=== PATIENT | male | born 1955 | race Caucasian/White ===

== ENCOUNTER 2023-12-11 10:38 | Emergency (ER) | payer MEDICARE, OTHER, SELFPAY ==
[2023-12-11 10:38] VITALS: BP 133/78; PULSE 105; RESP 14; TEMP 36.1; O2SAT 92; BMI 23.0
[2023-12-11 11:24] LABS: Absolute Lymphocyte Count 1.39 X10^3/uL (0.83-4.51); Basophil# 0.04 X10^3/uL; Basophil% 0.5 % (0-1); Eosinophil# 0.22 X10^3/uL; Eosinophils% 2.7 % (0-5); Hematocrit 32.3 % (40-54); Hemoglobin 9.6 g/dL (13.0-16.5); Lymphocyte # 1.39 X10^3/ul (0.83-4.51); Lymphocyte % 16.9 % (19-41); Mean Corp Hgb Conc 29.7 g/dL (32-36); Mean Corpuscular Hgb 24.2 pg (27.0-32.0); Mean Corpuscular Volume 81.6 fL (80-94); Mean Platelet Vol. 8.4 fl (6.2-12.0); Monocyte# 0.58 X10^3/uL; Monocyte% 7.1 % (0-10); NRBC Flagged by Analyzer 0 % (0-5); Neutrophil # 5.95 X10^3/uL (2.7-7.7); Neutrophil % 72.4 % (47-70); POSITIVE MORPHOLOGY YES; Platelet Count 205 K/mm3 (150-450); RBC Distribution Width CV 20.6 % (11.6-14.6); RBC Distribution Width SD 61.1 fl (35.1-43.9); Red Blood Count 3.96 M/mm3 (4.6-6.2); White Blood Count 8.2 K/mm3 (4.4-11.0)
[2023-12-11 11:25] LABS: Differential Indicated SCAN CRITERIA MET
[2023-12-11 11:36] LABS: Bacteria 0 SEEN /hpf (None Seen); Mucous, Urine 0 SEEN /hpf (<or=2+); Red Blood Cells-Urine 0 SEEN /hpf (0-5); Squamous Epithelial Cells - UA 0 SEEN /hpf (0-5); White Blood Cells 0 SEEN /hpf (0-5)
[2023-12-11 11:39] LABS: Color, Urine Yellow (Yellow); Glucose, Dipstick Normal (Normal); Ketone-Dipstick Negative (Negative); Leukocyte Esterase-Dipstick Negative /ul (Negative); Nitrite-Dipstick Negative (Negative); Occult Blood-Urine Negative /ul (Negative); Protein-Dipstick 15 mg/dl (Negative); Urine Bilirubin Dipstick Negative (Negative); Urine Clarity Sl. Cloudy (Clear); Urine Urobilinogen Normal (Normal)
[2023-12-11 11:46] LABS: ALB/GLOB Ratio 1.1 RATIO (0.9-2.4); AST(SGOT) 23 U/L (15-37); Alanine Aminotransfer ALT/SGPT 36 U/L (16-61); Albumin, Serum 3.6 g/dL (3.2-5.0); Alkaline Phosphatase 89 U/L (45-117); Anion Gap 5 (5-15); BUN 22 mg/dL (7-18); BUN/Creat Ratio 23.1 RATIO (10-20); Calcium,Total 9.4 mg/dL (8.5-10.1); Chloride 107 mmol/L (98-107); Creatinine, Serum 0.95 mg/dL (0.70-1.30); EST Glomerular Filtration Rate 83 mL/min (>60); Est Glom Filt Rate - Afr Amer 100 mL/min (>60); Globulin 3.4 g/dL (2.2-4.2); Glucose 104 mg/dL (74-106); Lipase 25 U/L (13-75); Potassium 3.8 mmol/L (3.5-5.1); Sodium Level 139 mmol/L (136-145)
[2023-12-11 12:20] LABS: Differential Comment SCANNED; Platelet Estimate ADEQUATE (ADEQ)
[2023-12-11 12:21] LABS: Anisocytosis 2+; Ovalocyte 2+; Schistocytes 1+; Tear Drop Cell 1+
[2023-12-11 12:38] VITALS: BP 131/73; PULSE 78; RESP 16; O2SAT 98
[2023-12-11 14:00] VITALS: BP 129/74; PULSE 73; RESP 14; O2SAT 99
--- NOTE | 2023-12-11 14:03 | EDS_ITS ---
HPI History of Present Illness Chief Complaint: Flank Pain Narrative Narrative: Patient is a 68-year-old male with a past medical history of prostate cancer who presented to the emergency department with chief complaint of abnormal CT abdomen pelvis. Patient states that normally after he gets that shot for his prostate cancer he will have pain however he states that this has been going on for 3 weeks and usually he is better by now which things have not improved prompting him to have a CT in outpatient setting by his specialist. He states that today he was called by them and notified to come to the Emergency Department as there was concern for appendicitis. Patient states that his pain is mainly in the left side of his back. He states that he takes ibuprofen does help his pain. PFSH PFSH Home Medications ?Medication ?Instructions ?Recorded ?Last Taken ?Type abiraterone 250 mg tablet 1,000 mg PO DAILY prostate cancer 12/11/23 Unknown History atorvastatin 20 mg tablet 20 mg PO DAILY cholesterol 12/11/23 Unknown History prednisone 5 mg tablet 5 mg PO BID prostate 12/11/23 Unknown History tamsulosin 0.4 mg capsule 0.4 mg PO DAILY prostate 12/11/23 Unknown History Allergy/AdvReac Type Severity Reaction Status Date / Time No Known Allergies Allergy Verified 12/11/23 10:39 Social History Smoking Status: Never smoker ROS ROS ED ROS Narrative Constitutional: Denies any fevers, chills, headaches, lightness, dizziness Eyes: Denies changes double vision blurry vision Cardiovascular: Denies chest pain or palpitations Respiratory: Denies coughing wheezing shortness of breath Abdomen: Denies any abdominal pain nausea vomiting diarrhea : Denies any urinary symptoms Neurological: Denies any numbness, weakness, tingling Musculoskeletal: Complains of left-sided back pain as noted above Skin: Denies rashes or lesions EXAM Physical Exam Narrative Exam Narrative: General: Patient was lying in bed rest comfortably did not appear to be in acute distress Head: Atraumatic normocephalic Eyes: PERRL bilaterally, EOMI bilateral, no conjunctival injection noted Neck: Soft, supple, trach midline Cardiovascular: Regular rate and rhythm no murmurs gallops rubs noted Respiratory: Clear to auscultation bilaterally no rales rhonchi wheeze noted Abdomen: Soft, nondistended, nontender to palpation Musculoskeletal: No CVA tenderness noted on exam, no midline tenderness palpation in the thoracolumbar spine Extremities: +5/5 strength noted in the bilateral upper and lower extremities, no pedal edema noted exam Neurological: Patient was following commands knew that he was at [facility] year is 2023 Skin: Warm, dry, intact Const Vital Signs: 12/11/23 10:38 12/11/23 12:38 Temperature 97 F L Temperature Source Temporal Pulse Rate 105 H 78 Respiratory Rate 14 16 Blood Pressure 133/78 H 131/73 H Blood Pressure Mean 96 92 Pulse Ox 92 98 Oxygen Delivery Method Room Air Room Air MDM MDM MDM Narrative Medical decision making narrative: Patient is a 68-year-old male who presented to the Emergency Department with a chief complaint of abnormal CT abdomen pelvis with concern that was read as acute appendicitis. Patient will have a workup performed here on the differential diagnose includes but not limited to appendicitis, urolithiasis, UTI. Once workup is obtained reviewed he will be reevaluated. Patient had a CT lumbar spine with IV contrast yesterday that was read as is reasonable probability mild acute uncomplicated appendicitis. Position right lower quadrant. Clinical correlation was indicated. As approximately symmetrical bilateral perineal stranding unlikely acute congestive/inflammatory. Sclerotic bone metastases most of all of which lacking corresponding increase in significant activity on the 2021 most recent nuclear bone scan no lytic or otherwise destructive lesions noted. Mildly atelectatic lung bases subcentimeter probable hepatic cyst. Lumbar spine showed no destructive osseous lesions. Sclerotic bone metastases. Patient's CBC was largely unremarkable no leukocytosis white blood count normal at 8.2, hemoglobin was 9.6, platelet count was 205. Patient sodium normal at 139, potassium normal at 3.8, creatinine normal at 0.95. Patient's AST and ALT were 23 and 36 respectively. Patient lipase normal at 25. Patient's urinalysis showed no blood no evidence of infection. I called and discussed the case with on-call general surgeon Dr. robledo who states that he can follow-up with him in the outpatient setting. Patient was also encouraged to follow-up with his specialist in the outpatient setting and ordered the CT abdomen pelvis. He is encouraged to take Tylenol and ibuprofen [id number] for pain control. He is encouraged return for worsening symptoms or other concerns. He is agreeable with this plan as well as significant other at bedside all question concerns answered he is discharged home in stable condition. Lab Data Labs: Laboratory Results - last 24 hr 12/11/23 12/11/23 11:18 11:30 WBC 8.2 RBC 3.96 L Hgb 9.6 L Hct 32.3 L MCV 81.6 MCH 24.2 L MCHC 29.7 L RDW Std Deviation 61.1 H RDW Coeff of Lydia 20.6 H Plt Count 205 MPV 8.4 Immature Gran % (Auto) 0.400 Neut % (Auto) 72.4 H Lymph % (Auto) 16.9 L Braxton % (Auto) 7.1 Eos % (Auto) 2.7 Baso % (Auto) 0.5 Absolute Neuts (auto) 6.0 Absolute Lymphs (auto) 1.39 Nucleated RBC % 0 Differential Comment SCANNED Platelet Estimate ADEQUATE Anisocytosis 2+ Tear Drop Cells 1+ Ovalocytes 2+ Schistocytes 1+ Sodium 139 Potassium 3.8 Chloride 107 Carbon Dioxide 27.0 Anion Gap 5 BUN 22 H Creatinine 0.95 Estim Creat Clear Calc 70.00 Est GFR (MDRD) Af Amer 100 Est GFR (MDRD) Non-Af 83 BUN/Creatinine Ratio 23.1 H Glucose 104 Calcium 9.4 Total Bilirubin 0.50 AST 23 ALT 36 Alkaline Phosphatase 89 Total Protein 7.0 Albumin 3.6 Globulin 3.4 Albumin/Globulin Ratio 1.1 Lipase 25 Urine Color Yellow Urine Clarity Sl. Cloudy Urine pH 7.0 Ur Specific Watson 1.010 Urine Protein 15 H Urine Glucose (UA) Normal Urine Ketones Negative Urine Occult Blood Negative Urine Nitrite Negative Urine Bilirubin Negative Urine Urobilinogen Normal Ur Leukocyte Esterase Negative Urine RBC 0 SEEN Urine WBC 0 SEEN Ur Squamous Epith Cells 0 SEEN Urine Bacteria 0 SEEN Urine Mucus 0 SEEN Discharge Plan Triage Chief Complaint: Flank Pain ED Provider: Rubén Liu Dx/Rx/DC Orders Clinical Impression: Abnormal computed tomography of abdomen and pelvis, Chronic left-sided back pain Prescriptions: No Action atorvastatin 20 mg tablet 20 mg PO DAILY prednisone 5 mg tablet 5 mg PO BID tamsulosin 0.4 mg capsule 0.4 mg PO DAILY abiraterone 250 mg tablet 1,000 mg PO DAILY Primary Care Provider: López Ocampo Referrals: López Ocampo MD [Primary Care Provider] - Moreno Robledo MD [Med Staff - Active Staff] - Activity Restrictions/Additional Instructions: Follow-up with your doctors in the outpatient setting. Follow-up with the general surgeon that you referred to return with worsening symptoms or other concerns. Print Language: Indonesian Disposition Disposition: Home, Self Care
[2023-12-11 14:32] VITALS: BP 117/73; PULSE 78; RESP 16; TEMP 36.6; O2SAT 99
== END 2023-12-11 14:33 | disposition home or self-care (01) ==
PROVIDERS: Emergency Provider Emergency Medicine; PCP Family Medicine; Visit Provider Emergency Medicine
DX: R93.5 Abnormal findings on diagnostic imaging of other abdominal regions, including retroperitoneum (principal); M54.9 Dorsalgia, unspecified; Z79.899 Other long term (current) drug therapy
CPT/HCPCS: 80053; 81001; 83690; 85025; 99283; A4216

== ENCOUNTER 2024-02-05 09:37 | Observation (INO) | payer MEDICARE, OTHER, SELFPAY ==
[2024-02-05] VITALS (15 sets, daily range): BP systolic 93–116; BP diastolic 44–75; PULSE 83–105; RESP 16–37; TEMP 36.6–37.3; O2SAT 59–98; BMI 22.6
--- NOTE | 2024-02-05 | APP_PTH ---
PATIENT: SARAH CORDERO II LOC: MS3 U#:[id number] AGE/SX: 68/M ROOM: DE316 RE02/05/[address]: Dr. Rohit Crawford MD : [id number] BED: 1 DIS: 02/06/2024 SPEC #: [id number] RECD: 02/05/24 17:56 STATUS: SONIYA GALLOWAY #: [id number] ALFONSO: 02/05/24 00:[address]: Rohit Crawford DEPT: SURGICAL PATHOLOGY RECD BY: Homer Flores ENTERED: 02/06/24 09:15 SP TYPE: APPENDIX OTHR DR: Dr. López Ocampo MD Tissues: Appendix, NOS Procedures: Surgery Specimen Level III HEADER OPERATION: Laparoscopic appendectomy PRE-OP DIAGNOSIS: Acute appendicitis TISSUE SUBMITTED: Appendix MICROSCOPIC DIAGNOSIS Appendix, appendectomy: Acute appendicitis and periappendicitis. See michelle. 02/09/2024 COMMENT Please also make reference additional specimen, [id number], peritoneal fluid for cytology with diagnosis of negative for malignant cells and acute inflammation. Clinical correlation and appropriate follow up are necessary. MICROSCOPIC DESCRIPTION Slides are reviewed. GROSS DESCRIPTION Received in fixative is one container labeled with the patient's name and designated appendix. The specimen consists of an appendix measuring 4.5 cm in length and up to 1.1 cm in diameter. The attached periappendiceal adipose tissue measures up to 1.0 cm in width. The serosa is congested. No obvious perforation is identified. The lumen does not contain any fecal material. No fecalith is identified. Mechanical Engineering Director sections are submitted in one cassette. SJ. 02/06/2024 Rest of the specimen is submitted in two cassettes. Cassette 2 contains the tip and most proximal portion. / SJ: 02/09/2024 TC:2 CPT: 33379
--- NOTE | 2024-02-05 10:53 | EDS_ITS ---
HPI HPI - GI History of Present Illness Chief Complaint: Abd Pain Informant: patient and spouse/S.O. Narrative Narrative: Here with spouse evaluation worsening abdominal pain today. This morning mild pain right side however was drove home, had a bowel movement suddenly got worse and severe right lower. Nausea without vomiting. No urinary symptoms. No abdominal surgeries. No allergies. No medications taken. History of prostate cancer diagnosed 3 years ago currently on medications followed by Dr. Villarreal. Urologist ([facility]). Prior similar symptoms: No PFSH PFSH Home Medications ?Medication ?Instructions ?Recorded ?Last Taken ?Type abiraterone 250 mg tablet 1,000 mg PO DAILY prostate cancer 12/11/23 Unknown History atorvastatin 20 mg tablet 20 mg PO DAILY cholesterol 12/11/23 Unknown History prednisone 5 mg tablet 5 mg PO BID prostate 12/11/23 Unknown History tamsulosin 0.4 mg capsule 0.4 mg PO DAILY prostate 12/11/23 Unknown History cimetidine 200 mg tablet (Tagamet 200 mg PO BID 02/05/24 Unknown History HB) denosumab 120 mg/1.7 mL (70 mg/mL) 120 mg subcut .monthly 02/05/24 Unknown History subcutaneous solution (Xgeva) leuprolide acetate (6 month) 45 mg mg subcut 02/05/24 Unknown History (6 month) subcutaneous syringe (Eligard) Allergy/AdvReac Type Severity Reaction Status Date / Time No Known Allergies Allergy Verified 02/05/24 09:38 Social History Smoking Status: Never smoker ROS ROS ED Constitutional Constitutional ED: Denies chills, fever(s) or sweats Eyes Eyes: Denies change in vision ENT ENT ED: Denies dysphagia or sore throat Cardiovascular Cardiovascular: Denies chest pain, leg edema, palpitations or racing heartbeat Respiratory/Chest Respiratory/Chest: Denies cough, dyspnea or dyspnea on exertion Gastrointestinal Gastrointestinal: Reports abdominal pain and nausea; Denies diarrhea or vomiting Genitourinary Genitourinary ED: Denies dysuria, hematuria or urinary frequency Musculoskeletal Musculoskeletal: Denies back pain, extremity pain or neck pain Integumentary Denies rash or wounds Neurologic Neurologic: Denies headache(s), paresthesias or weakness EXAM Physical Exam Const Vital Signs: 02/05/24 09:38 02/05/24 11:38 02/05/24 13:00 Temperature 98 F Temperature Source Oral Pulse Rate 86 99 90 Respiratory Rate 37 H 20 H 16 Blood Pressure 103/50 L 116/54 L 104/51 L Blood Pressure Mean 67 74 68 Blood Pressure Source Blood Pressure Position Blood Pressure Location Pulse Ox 97 98 Oxygen Delivery Method Room Air 02/05/24 13:33 02/05/24 13:34 Temperature 98 F 98 F Temperature Source Oral Pulse Rate 90 97 Respiratory Rate 16 16 Blood Pressure 104/51 L 104/51 L Blood Pressure Mean 68 68 Blood Pressure Source Monitor Blood Pressure Position Supine Blood Pressure Location Left Arm Pulse Ox 98 96 Oxygen Delivery Method Room Air Positive well nourished and well developed Constitutional Narrative: Uncomfortable, nontoxic General Appearance ED: well developed HEENT Reports moist mucous membranes normocephalic and atraumatic Eyes EOMs intact bilaterally and conjunctivae normal General Eye ED: Yes normal appearance of both eyes Neck no lymphadenopathy and supple General: Negative for tenderness Chest Wall Chest: Negative for tenderness Resp normal respiratory effort and normal air movement Effort and Inspection: symmetric chest movement; Negative for respiratory distress Cardio regular rate, regular rhythm and no murmurs Peripheral Pulses: pulses 2+ throughout GI normal to inspection, nondistended, normoactive bowel sounds GI Narrative: Tenderness right lower quadrant, negative Renee's. Negative Rovsing's. Palpation: Negative for rebound tenderness present Back/Spine no CVA tenderness and no thoracic nor lumbar tenderness Extremity normal to inspection General Extremety ED: Negative for edema or tenderness General Extremity: Negative for edema Neuro oriented x3 and no sensory deficits noted Sensorium / Orientation: awake and alert Skin no rashes or lesions noted and no wounds MDM MDM MDM Narrative Medical decision making narrative: Interventions / MDM: Differential diagnosis: Acute appendicitis, right lower quadrant abdominal pain Diagnosis considered but do not suspect: Kidney stone however CT negative My EKG interpretation: EKG: Sinus rhythm 96, no ST T changes. T wave version V1 V2. QTc 462. Imaging independently reviewed and interpreted by myself: CT abdomen pel without contrast: Acute appendicitis, no perforation, no kidney stones. External documents reviewed: N/A Test considered but not ordered:N/A ED course: Patient sudden worsening pain right lower quadrant nausea. Uncomfortable unable he still. Appendix in the region however clinical appe arance more concerning for kidney stones. Renal stone protocol initiated. IV established fluids Zofran and morphine. 1155: White count 11.7 creatinine 0.98. Reevaluation pain continued increasing nausea. Will redosed morphine and Zofran. My review of CT did not appreciate any kidney stones. There are some concerns for inflammatory changes around the cecum. 1210: CT scan concerns for acute appendicitis. No perforation. I did speak with on-call surgeon Dr. Crawford, reviewing his records earlier December he was sent in here for abnormal CT of lumbar spine with possible appendicitis. D iscussed this with the patient is follow-up for his back pain with his cancer history he had no abdominal pain at that time. He did not follow-up with the surgeon. CT imaging was done at the specialty center. No CT records in [employer] and unable to pull up records in [facility]. He will be evaluated by surgery. 1310: Patient seen by surgery, antibiotics started. Preop EKG. chest x-ray and labs ordered. Will plan to go to the operating room from the ED. EKG sinus rhythm. Of note patient taken to operating apartment before chest x- ray performed in the ED. Re-evaluation: stable Disposition discussed with patient/family/significant other: Patient and significant other Case discussed with consulting clinician: General Surgery This note was generated with [employer] dictation software. It may contain incorrect words, spelling, and punctuation that were not noted in checking the note before signing. Lab Data Attestation: I reviewed the patient's lab results. Labs: Laboratory Results - last 24 hr 02/05/24 02/05/24 09:50 13:25 WBC 11.7 H RBC 4.23 L Hgb 10.3 L Hct 34.1 L MCV 80.6 MCH 24.3 L MCHC 30.2 L RDW Std Deviation 59.8 H RDW Coeff of Lydia 20.5 H Plt Count 199 MPV 8.8 Immature Gran % (Auto) 0.400 Neut % (Auto) 62.8 Lymph % (Auto) 31.4 Ellsworth % (Auto) 4.1 Eos % (Auto) 1.1 Baso % (Auto) 0.2 Absolute Neuts (auto) 7.4 Absolute Lymphs (auto) 3.69 Nucleated RBC % 0 Differential Comment SCANNED Platelet Estimate ADEQUATE Polychromasia 1+ Hypochromasia 1+ Anisocytosis 2+ Tear Drop Cells 1+ Ovalocytes 2+ PT 14.0 INR 1.1 APTT 23.5 L Sodium 140 Potassium 3.6 Chloride 106 Carbon Dioxide 24.0 Anion Gap 10 BUN 23 H Creatinine 0.98 Estim Creat Clear Calc 67.06 Est GFR (MDRD) Af Amer 97 Est GFR (MDRD) Non-Af 80 BUN/Creatinine Ratio 23.4 H Glucose 97 Calcium 9.1 Blood Type B NEGATIVE Antibody Screen NEGATIVE Radiography Diagnostic Testing: Clinical Impression(s) from Imaging Studies Abdomen/Pelvis CT 02/05/24 10:53 IMPRESSION: Findings in keeping with acute appendicitis. Linear scarring at the lung bases. Nonspecific mild degree of bilateral perinephric stranding. Electronically Signed: Maximo Krause MD at 12:08 EDT , Discharge Plan Dx/Rx/DC Orders Clinical Impression: Acute appendicitis, RLQ abdominal pain, Nausea & vomiting, History of prostate cancer Disposition Disposition: Acute Care [facility] Discharge Date/Time: 02/05/24 13:55
--- NOTE | 2024-02-05 10:53 | CT_ITS ---
STUDY: CT ABDOMEN AND PELVIS WITHOUT CONTRAST REASON FOR EXAM: Male, 68 years old. Kidney Stone. Right lower quadrant pain. Painful urination. History of prostate cancer. RADIATION DOSAGE (If Supplied By Facility): CTDIvol = ( 6.72 ) mGy, DLP = ( 347.40 ) mGycm TECHNIQUE: Transaxial images were obtained from the dome of the diaphragm to the symphysis pubis without oral contrast, and without intravenous contrast. Sagittal and coronal images were reconstructed. Individualized dose optimization techniques were used for this CT. COMPARISON: None. FINDINGS: Mild degree of increased linear markings at the lung bases suggestive of scarring. Calcified granuloma in the left lower lobe. Coronary artery calcification. Normal liver. Normal gallbladder and extrahepatic biliary system. Normal spleen. Normal pancreas. Normal bilateral adrenal glands. Normal right kidney. Normal left kidney. There is a mild degree of nonspecific bilateral perinephric stranding. There is a small hiatal hernia. Normal small intestine. There are scattered colonic diverticula consistent with diverticulosis. There is a tubular, thick-walled appendix (>7mm), consistent with acute appendicitis. Inflammatory changes are seen within the mesenteric fat in the right lower quadrant. There is diffuse atherosclerotic calcification of the abdominal aorta and its major visceral branches, without a demonstrated aneurysm. Normal inferior vena cava. Normal retroperitoneum. Normal urinary bladder. Central prostatic calcification. Normal abdominal wall. There are diffuse degenerative changes of the visualized lumbar spine. Levoscoliosis. There is a 1.3 cm heterogeneous sclerotic lesion in the superior aspect of the left iliac bone. There is a 6.9 mm sclerotic focus in the peripheral aspect of the right iliac wing. Scattered sclerotic foci in the lower aspect of the right iliac bone. Sclerotic lesion in the left hemisacrum. Bony metastasis should be ruled out. Sclerotic lesion also seen in the inferior aspect of the left inferior pubic ramus. CT/Abdomen/Pelvis without Cont IMPRESSION: Findings in keeping with acute appendicitis. Linear scarring at the lung bases. Nonspecific mild degree of bilateral perinephric stranding. Electronically Signed: Maximo Krause MD at 12:08 EDT ,
[2024-02-05 11:02] LABS: Absolute Lymphocyte Count 3.69 X10^3/uL (0.83-4.51); Absolute Neutrophil Count 7.4 X10^3/uL (2.0-7.7); Basophil# 0.02 X10^3/uL; Basophil% 0.2 % (0-1); Eosinophil# 0.13 X10^3/uL; Eosinophils% 1.1 % (0-5); Hematocrit 34.1 % (40-54); Hemoglobin 10.3 g/dL (13.0-16.5); Lymphocyte # 3.69 X10^3/ul (0.83-4.51); Lymphocyte % 31.4 % (19-41); Mean Corp Hgb Conc 30.2 g/dL (32-36); Mean Corpuscular Hgb 24.3 pg (27.0-32.0); Mean Corpuscular Volume 80.6 fL (80-94); Mean Platelet Vol. 8.8 fl (6.2-12.0); Monocyte# 0.48 X10^3/uL; Monocyte% 4.1 % (0-10); NRBC Flagged by Analyzer 0 % (0-5); Neutrophil # 7.37 X10^3/uL (2.7-7.7); Neutrophil % 62.8 % (47-70); POSITIVE MORPHOLOGY YES; Platelet Count 199 K/mm3 (150-450); RBC Distribution Width CV 20.5 % (11.6-14.6); RBC Distribution Width SD 59.8 fl (35.1-43.9); Red Blood Count 4.23 M/mm3 (4.6-6.2); White Blood Count 11.7 K/mm3 (4.4-11.0)
[2024-02-05] MEDS: Morphine 4 MG/ML Syringe IV ×2 (11:06→12:15)
[2024-02-05] MEDS: Ondansetron 4 MG/2 ML Vial IV ×2 (11:06→12:15)
[2024-02-05] MEDS: 0.9% Normal Saline (500mL Bag) 500 ML 999 ML IV ×2 (11:08→13:37)
[2024-02-05 11:10] LABS: Anion Gap 10 (5-15); BUN 23 mg/dL (7-18); BUN/Creat Ratio 23.4 RATIO (10-20); Calcium,Total 9.1 mg/dL (8.5-10.1); Chloride 106 mmol/L (98-107); Creatinine, Serum 0.98 mg/dL (0.70-1.30); Differential Indicated SCAN CRITERIA MET; EST Glomerular Filtration Rate 80 mL/min (>60); Est Glom Filt Rate - Afr Amer 97 mL/min (>60); Estimated Creatinine Clearance 67.06 ml/min; Glucose 97 mg/dL (74-106); Potassium 3.6 mmol/L (3.5-5.1); Sodium Level 140 mmol/L (136-145)
[2024-02-05 12:02] LABS: Anisocytosis 2+; Differential Comment SCANNED; Hypochromasia 1+; Ovalocyte 2+; Platelet Estimate ADEQUATE (ADEQ); Polychromasia 1+; Tear Drop Cell 1+
--- NOTE | 2024-02-05 13:10 | EKG12_ITS ---
Test Reason : PREOP Blood Pressure : */* mmHG Vent. Rate : 96 BPM Atrial Rate : 96 BPM P-R Int : 128 ms QRS Dur : 74 ms QT Int : 366 ms P-R-T Axes : 56 -29 57 degrees QTcB Int : 462 ms Normal sinus rhythm Nonspecific T wave abnormality Prolonged QT Abnormal ECG Confirmed by LENIN NUNEZ, STEVE ([id number]), editor newspaper DERREK PAN ([id number]) on 02/06/2024 8:21:22 AM Referred By: Confirmed By: STEVE PHELPS MD
--- NOTE | 2024-02-05 13:18 | NURSING ---
SURGERY OBS NIGEL ACUTE APPENDICITIS
[2024-02-05] MEDS: Piperacil/Tazobactam 4.5 GM in 0.9% Normal Saline (100mL MB+) 100 ML IV (13:37)
--- NOTE | 2024-02-05 13:52 | PCM.HP.STD ---
HPI - General General Date of Admission: 02/05/24 Date of Service: 02/05/24 Chief Complaint: Right lower quadrant abdominal pain HPI Narrative SARAH CORDERO, is a 68 M who presents with 1 day history of right lower quadrant abdominal pain. Patient notes he woke up this morning at 0530 with achiness in his abdominal. 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 When he returned home he felt the urge to have a bowel movement. Following the bowel movement, he had an acute onset of severe abdominal pain. He notes since that time the pain would come on in waves. He states the pain was so severe that he had his bring him to the hospital. He notes pain was associated with nausea and a small amount of vomiting. He notes feeling hot and chills intermittently. He has a history of stage 4 prostate cancer with mets to the bone. He notes he follows with oncology from [facility]. He denies being on any active chemotherapy at this time. He notes taking hormone injections. Patient notes the prostates was inoperable. He denies having any abdominal surgeries previously. He denies any medication allergies, cardiac history of pulmonary history. He has chronic anemia which he takes an injection for. he is on prednisone and dexamethasone. Patient was in the ED at the beginning of December with an incidental finding of acute appendicitis on routine CT scan of the ab/pel without any abdominal pain. Patient at that time did not have a white count. Dr. Robledo had reviewed the CT scan and noted he would be able to follow-up with him as an outpatient. Patient states he never followed up because he was not having any pain. He notes his last colonoscopy was approximately 3 years ago. He notes obtaining colonoscopies every [address] scan of the ab/pel w/o contrast demonstrated acute appendicitis, linear scarring at the lung bases, nonspecific mild degree of bilateral perinephric stranding. Patient has a white count of 11.7 with no left shift. [facility] Home Medications ?Medication ?Instructions ?Recorded ?Last Taken ?Type abiraterone 250 mg tablet 1,000 mg PO DAILY prostate cancer 12/11/23 Unknown History atorvastatin 20 mg tablet 20 mg PO DAILY cholesterol 12/11/23 Unknown History prednisone 5 mg tablet 5 mg PO BID prostate 12/11/23 Unknown History tamsulosin 0.4 mg capsule 0.4 mg PO DAILY prostate 12/11/23 Unknown History cimetidine 200 mg tablet (Tagamet 200 mg PO BID 02/05/24 Unknown History HB) denosumab 120 mg/1.7 mL (70 mg/mL) 120 mg subcut .monthly 02/05/24 Unknown History subcutaneous solution (Xgeva) leuprolide acetate (6 month) 45 mg mg subcut 02/05/24 Unknown History (6 month) subcutaneous syringe (Eligard) Allergy/AdvReac Type Severity Reaction Status Date / Time No Known Allergies Allergy Verified 02/05/24 09:38 Social History Smoking Status: Never smoker ROS Constitutional Constitutional: Reports systems reviewed and no addt'l complaints, except as documented Eyes Eyes: Reports systems reviewed and no addt'l complaints, except as documented ENT HEENT: Reports systems reviewed and no addt'l complaints, except as documented Cardiovascular Cardiovascular: Reports systems reviewed and no addt'l complaints, except as documented Respiratory/Chest Respiratory/Chest: Reports systems reviewed and no addt'l complaints, except as documented Gastrointestinal Gastrointestinal: Reports systems reviewed and no addt'l complaints, except as documented Genitourinary Genitourinary: Reports systems reviewed and no addt'l complaints, except as documented Musculoskeletal Musculoskeletal: Reports back pain Integumentary Integumentary: Reports systems reviewed and no addt'l complaints, except as documented Neurologic Neurologic: Reports systems reviewed and no addt'l complaints, except as documented Psychiatric Psychiatric: Reports systems reviewed and no addt'l complaints, except as documented Endocrine Endocrinology: Reports systems reviewed and no addt'l complaints, except as documented Hematologic/Lymphatic Hematologic/Lymphatic: Reports systems reviewed and no addt'l complaints, except as documented Allergic/Immunologic Allergic/Immunologic: Reports systems reviewed and no addt'l complaints, except as documented Vital Signs Vital Signs Vital Signs: 02/05/24 09:38 02/05/24 11:38 02/05/24 13:00 Temperature 98 F Temperature Source Oral Pulse Rate 86 99 90 Respiratory Rate 37 H 20 H 16 Blood Pressure 103/50 L 116/54 L 104/51 L Blood Pressure Mean 67 74 68 Blood Pressure Source Blood Pressure Position Blood Pressure Location Pulse Ox 97 98 Oxygen Delivery Method Room Air 02/05/24 13:33 02/05/24 13:34 Temperature 98 F 98 F Temperature Source Oral Pulse Rate 90 97 Respiratory Rate 16 16 Blood Pressure 104/51 L 104/51 L Blood Pressure Mean 68 68 Blood Pressure Source Monitor Blood Pressure Position Supine Blood Pressure Location Left Arm Pulse Ox 98 96 Oxygen Delivery Method Room Air Weight Weight: 149 lb 0.52 oz Body Mass Index (BMI) 22.6 Physical Exam Const alert, oriented x3 and no apparent distress General Appearance: ill appearing and frail HEENT normocephalic and head/scalp atraumatic Eyes PERRL Neck full ROM Resp normal respiratory effort and clear to auscultation bilaterally Cardio Rate: tachycardic GI GI Narrative: Abdomen- soft, tenderness in the right lower quadrant over McBurney's point. Hypoactive bowel sounds. no CVA tenderness Back/Spine no CVA tenderness Extremity normal to inspection Skin no rashes or lesions noted Neuro no focal motor deficits and no sensory deficits noted Psych mental status grossly normal, thought process normal and cooperative Results Lab / Micro Data 02/05/24 09:50 02/05/24 09:50 Labs: Laboratory Results - last 24 hr 02/05/24 09:50: WBC 11.7 H, RBC 4.23 L, Hgb 10.3 L, Hct 34.1 L, MCV 80.6, MCH 24.3 L, MCHC 30.2 L, RDW Std Deviation 59.8 H, RDW Coeff of Lydia 20.5 H, Plt Count 199, MPV 8.8, Immature Gran % (Auto) 0.400, Neut % (Auto) 62.8, Lymph % (Auto) 31.4, Graves % (Auto) 4.1, Eos % (Auto) 1.1, Baso % (Auto) 0.2, Absolute Neuts (auto) 7.4, Absolute Lymphs (auto) 3.69, Nucleated RBC % 0, Differential Comment SCANNED, Platelet Estimate ADEQUATE, Polychromasia 1+, Hypochromasia 1+, Anisocytosis 2+, Tear Drop Cells 1+, Ovalocytes 2+, Sodium 140, Potassium 3.6, Chloride 106, Carbon Dioxide 24.0, Anion Gap 10, BUN 23 H, Creatinine 0.98, Estim Creat Clear Calc 67.06, Est GFR (MDRD) Af Amer 97, Est GFR (MDRD) Non-Af 80, BUN/Creatinine Ratio 23.4 H, Glucose 97, Calcium 9.1 Imaging Radiology Impression Abdomen/Pelvis CT 02/05/24 10:53 IMPRESSION: Findings in keeping with acute appendicitis. Linear scarring at the lung bases. Nonspecific mild degree of bilateral perinephric stranding. Electronically Signed: Maximo Krause MD at 12:08 EDT , Assessment & Plan Assessment/Plan (1) Acute appendicitis: QUALIFIERS: Acute appendicitis type: with localized peritonitis Appendicitis gangrene presence: without gangrene Appendicitis perforation presence: without perforation Appendicitis abscess presence: without abscess Qualified Code(s): K35.30 - Acute appendicitis with localized peritonitis, without perforation or gangrene PLAN: I am seeing this patient in conjunction with Dr. Crawford. He has also independently evaluated this patient. Patient with a 1 day history of waxing and waning right lower quadrant abdominal pain following a bowel movement. Patient notes chills and sweats with associated nausea and small amount of vomiting. He has stage [address] scan of ab/pel does confirm acute appendicitis. Plan for patient to proceed with a laparoscopic appendectomy with possible small bowel obstruction, possible open procedure with Dr. Crawford. Procedure details, risks and benefits have been explained. Patient and his have had the opportunity to ask and have questions answered. Patient verbally understands and agrees with the plan. It has been discussed that post-operatively the patient may need to be admitted for observation for pain control and IV fluids. Thank you for allowing us to participate in this patient's care. Charges/Coding Visit Charges OBSV E&M: 52855 Observ/hosp same date L2
[2024-02-05 14:00] LABS: International Normalized Ratio 1.1
[2024-02-05 14:01] LABS: Partial Thromboplast Time 23.5 Seconds (24.1-36.2)
--- NOTE | 2024-02-05 14:02 | RAD_ITS ---
STUDY: X-RAY CHEST REASON FOR EXAM: Male, 68 years old. Preop TECHNIQUE: Single AP portable view of the chest. COMPARISON: None. FINDINGS: Mild degree of increased markings at the lung bases slightly worse on the right side suggestive of bibasilar scarring and/or atelectasis. Blunting of both costo phrenic angles. Normal size heart. Normal mediastinum and lily. Normal visualized pulmonary arteries. There is atherosclerotic calcification of the aortic arch with tortuosity. There are diffuse degenerative changes of the visualized thoracic spine. Normal visualized ribs, clavicles, and shoulders. There is no demonstrated abnormality of the visualized soft tissue structures of the upper abdomen. RAD/Chest 1 View (Portable) IMPRESSION: Mild degree of increased markings at the lung bases with confluence worse at the right lung base suggestive of atelectasis and/or scarring. Blunting of both costophrenic angles. Electronically Signed: Maximo Krause MD at 14:15 EDT ,
--- NOTE | 2024-02-05 14:34 | PCM.PRE.AN2 ---
ASA Classification* ASA Classification ASA Classification: 2 (SEE WRITTEN PRE ANESTHESIA RECORD FOR FULL ASSESSMENT) and E Assessment & Plan Anesthesia* Anesthesia Assessment Anesthesia Assessment: Discussed sedation and/or anesthesia options, risks, benefits, and alternatives with patient/parents/legal guardian/POA. Questions invited. The patient/parents/legal guardian/POA seems to understand and agrees to proceed with anesthesia plan. Reviewed the physical assessment, medical history, allergy history and patient home medications list prior to surgery/procedure/anesthetic and documented any changes. Performed airway and anesthesia risk assessments. Anesthesia Type Anesthesia Type: General (SEE WRITTEN PRE ANESTHESIA RECORD FOR FULL ASSESSMENT) Anesthesia Focused Assessment* Temperature: 98 F Pulse Rate: 97 Blood Pressure: 104/51 Respiratory Rate: 16 Pulse Ox: 96 Airway Assessment Mouth opens: >3 cm Mallampati Score: II Focused Labs Anesthesia Preop lab: CBC WBC 11.7 K/mm3 (4.4-11.0) H 02/05/24 09:50 RBC 4.23 M/mm3 (4.6-6.2) L 02/05/24 09:50 Hgb 10.3 g/dL (13.0-16.5) L 02/05/24 09:50 Hct 34.1 % (40-54) L 02/05/24 09:50 Plt Count 199 K/mm3 (150-450) 02/05/24 09:50 CHEMISTRY Potassium 3.6 mmol/L (3.5-5.1) 02/05/24 09:50 Sodium 140 mmol/L (136-145) 02/05/24 09:50 BUN 23 mg/dL (7-18) H 02/05/24 09:50 Creatinine 0.98 mg/dL (0.70-1.30) 02/05/24 09:50 Glucose 97 mg/dL (74-106) 02/05/24 09:50 COAG PT 14.0 SECONDS (11.7-14.9) 02/05/24 09:50 Pre-Assessment Diagnosis/Proposed Procedure Planned Operative Procedure(s): LAP APPY Anesthesia History Anesthesia History - youth nutritional monitor: Anesthesia History - youth nutritional monitor Hx Hospitalization Any Problems With Anesthesia No 02/05/24 13:34 Cholinesterase deficiency No 02/05/24 13:34 You/Your Family Experience No 02/05/24 13:34 fever (hyperthermia) with Relationship Recent Exposure to Contagious No 02/05/24 13:34 Disease Does patient have nerve No 02/05/24 13:34 stimulator Patient instructed to have No 02/05/24 13:34 device shut off --Does patient have Pacemaker No 02/05/24 13:34 or ICD? When Was Last Pacemaker Check QUESTION #4 FULL TEXT: You/Your Family Experience fever (hyperthermia) with Anesthesia Last Oral Intake Last Oral intake: Last Oral Intake NPO since 05:45 02/05/24 13:34 Meds taken in AM with sips of water? Meds patient instructed to take am of surgery PONV PONV - youth nutritional monitor: PONV - youth nutritional monitor Female HX of Motion Sickness HX of N/V After Surgery Non-Smoker Duration of Surgery greater than 60 minutes Number of Risk Factors PONV Score Height & Weight Height & Weight: Anesthesia: Height & Weight Height 5 ft 8 in 02/05/24 13:34 Weight: 67.6 kg 02/05/24 13:34 Body Mass Index (BMI) 22.6 02/05/24 13:34 Respiratory Assessment Respiratory Assessment - youth nutritional monitor: Respiratory Tract Infection Hx - youth nutritional monitor Hx Respiratory Tract Infection No 02/05/24 13:34 STOP Sleep Apnea STOP Sleep Apnea - youth nutritional monitor: STOP Sleep Apnea - youth nutritional monitor Hx Hypertension No 02/05/24 13:34 Hx Sleep Apnea No 02/05/24 13:34 CPAP BIPAP Do you snore loudly (louder No 02/05/24 13:34 than talking or can be heard Do you often feel tired/ No 02/05/24 13:34 fatigued/ sleepy during daytime? Has anyone observed you stop No 02/05/24 13:34 breathing during sleep? STOP Results Negative 02/05/24 13:34 QUESTION #5 FULL TEXT : Do you snore loudly (louder than talking or can be heard through closed doors)? Tobacco Use History Tobacco Use History - youth nutritional monitor: Tobacco Use History - youth nutritional monitor Tobacco Use Smoking Status Never smoker 02/05/24 09:42 Hx Tobacco Use Years Smoking Packs Smoked per Day Smoking Cessation Date was within the last 15 years Hx Smoking Cessation Date Hx Smoking Cessation Counseling Hematologic Medial History Hematologic Hx - youth nutritional monitor: Hematologic Medical Hx - senior engineering specialist Hx of Blood Transfusion Hx of Transfusion in last 3 Months Date of Last Transfusion (if within last 3 months) Ever experience any problems with transfusion(s)? Specify any problems Hx of Preganancy in last 3 Months Nurse Filling Out Transfusion & Questions: Date: Time: Patient unable to answer at this time (ie. confused, unrespo /Reproduction History /Reproductive History - youth nutritional monitor: /Reproductive Hx- youth nutritional monitor Hx Now No 02/05/24 13:34 Gestational Age (in weeks): EDC: Hx Hx Para Hx Section SAB PFSH Home Medications ?Medication ?Instructions ?Recorded ?Last Taken ?Type abiraterone 250 mg tablet 1,000 mg PO DAILY prostate cancer 12/11/23 Unknown History atorvastatin 20 mg tablet 20 mg PO DAILY cholesterol 12/11/23 Unknown History prednisone 5 mg tablet 5 mg PO BID prostate 12/11/23 Unknown History tamsulosin 0.4 mg capsule 0.4 mg PO DAILY prostate 12/11/23 Unknown History cimetidine 200 mg tablet (Tagamet 200 mg PO BID 02/05/24 Unknown History HB) denosumab 120 mg/1.7 mL (70 mg/mL) 120 mg subcut .monthly 02/05/24 Unknown History subcutaneous solution (Xgeva) leuprolide acetate (6 month) 45 mg mg subcut 02/05/24 Unknown History (6 month) subcutaneous syringe (Eligard) Allergy/AdvReac Type Severity Reaction Status Date / Time No Known Allergies Allergy Verified 02/05/24 09:38 Social History Smoking Status: Never smoker Review of Systems (Anesthesia) ROS Narrative System reviewed and no additional complaints, except as documented.
--- NOTE | 2024-02-05 17:02 | OP.PCM_ITS ---
Operative Report (Standard) Operative Information Surgery/Procedure Performed: Laparoscopic appendectomy Surgeon: Rohit Crawford Date of Procedure: 02/05/24 Procedure Start Time: 16:20 Procedure Stop Time: 17:06 Pre-Operative Diagnosis: Acute uncomplicated appendicitis Post-Operative Diagnosis: 1. Acute uncomplicated appendicitis 2. Simple peritoneal ascites with evidence of reactive serositis to the surrounding bowel 3. Evidence of indirect right inguinal hernia without hernia contents Select all DRAINS/GRAFTS/IMPLANTS that apply: None Type of Anesthesia: General/Supplemental Estimated Blood Loss: 5 Specimen collected: Yes Description of specimen(s) removed: 1. Appendix 2. Peritoneal fluid for cytology and micro Description of surgery: After appropriate identification in the preoperative holding area, the patient was brought to the operating room and placed supine on the operating room table. Antibiotics had been preoperatively administered by emergency medicine. Patient was then induced with general endotracheal anesthetic. The abdomen was prepped and draped in usual sterile fashion. Formal timeout was conducted to confirm both the patient and the procedure. A supraumbilical incision was made and carried down to the level of the fascia which was sharply opened. After opening the peritoneum in like fashion a finger sweep was made to confirm position, and a balloon trocar was placed and pneumoperitoneum was established to 15 mmHg. Patient was positioned in Trendelenburg with the left side down. 2 additional 5 mm trocars were placed in the left lower quadrant and suprapubic positions. The peritoneum was inspected and there were no signs of inadvertent injury from this Hernandez entry. The appendix was visualized with evidence of acute inflammation and some surrounding simple ascites (it was also noted that there was evidence of hemorrhagic serositis to the terminal ileum and colon). A sample of this fluid was collected for both micro and cytology (given patient's history of stage IV prostate cancer and previous abnormal imaging of the appendix). The peritoneum was opened lateral to the appendix and this opening was extended down to the level of the base of the appendix. Using blunt laparoscopic dissection, a window was made in the mesoappendix adjacent to the appendiceal base. The mesoappendix was divided with application of a laparoscopic harmonic. Then the base of the appendix was sealed and amputated with the use of an Endo KEN stapler. The appendix was placed in an Endo Catch bag. The staple line was inspected for hemostasis and there was initially some mild oozing show a Ray-Caitlyn gauze was introduced to the peritoneal cavity and direct pressure was applied. After direct pressure was relieved hemostasis was found to be intact. After hemostasis was confirmed the appendix was removed from the umbilical port site. Pneumoperitoneum was then evacuated and the supraumbilical port site fascia was closed with #1 Vicryl in a [id number] fashion. The port sites were infiltrated with 30 mL local anesthetic. The skin of each port site was closed with 4-0 Monocryl in a subcuticular fashion. Steri-Strips and OpSite dressings were applied. Patient tolerated procedure well without any apparent complications. They were awoken from general anesthetic without issue and transferred to post anesthesia care unit for ongoing recovery. Surgical Findings: ? Serositis of the terminal ileum and ascending colon ? Serous ascites with slight clouding ? Evidence of a right-sided indirect inguinal hernia Steam Locomotive Firer/Fireman wrapper dipper: Yes Tube Machine Operator: Jonathan Pressley Tasks completed by agency sales management assistant: Opening, Closing and Other (Laparoscopic camera) Complications Complications: Yes Complication Details: None Admit VTE Documentation VTE Mechan Device Prophylaxis: SCD's Procedures Digestive [id number]-49xxx: 36666 Laparoscopy appendectomy
[2024-02-05] MEDS: Bupiv/Epi 0.25% 30 ML Vial (17:04)
--- NOTE | 2024-02-05 17:17 | PCM.POST.ANE ---
Anesthesia: Postop Eval I Current Vital Signs Temperature: 98.8 F Pulse Rate: 100 Blood Pressure: 102/50 Respiratory Rate: 18 Pulse Ox: 59 Oxygen Delivery Method: Room Air Assessment Airway patent: Yes Spontaneous unlabored respirations: Yes Mental status: Awake and Calm nausea: No Vomiting: No Anesthesia Complication: No Fluid Hydration Crystalloid volume administer (ml): 1,000 Total IV fluid infused: 1,000 Progress Note Anesthesia document: Postop Eval 1 completed: Yes
[2024-02-05 17:24] LABS: Cytology, Body Fluid / CSF SEE PATHOLOGY REPORT
--- NOTE | 2024-02-05 17:26 | POSTOPAN2_ITS ---
Anesthesia Postop Eval I Sum Postop Eval Completion status Anesthesia document: Postop Eval 1 completed: Yes Anesthesia Postop Eval I Summary Anesthesia Postop Eval I Summary: Anesthesia Postop Eval I: Assessment Summary Airway patent Yes 02/05/24 17:19 SURVEY WORKER.[email or web address] Spontaneous unlabored Yes 02/05/24 17:19 SURVEY WORKER.LISA respirations Mental status Awake,Calm 02/05/24 17:19 SURVEY WORKER.OBEDOBDerek nausea No 02/05/24 17:19 SURVEY WORKER.OBEDOBDerek Vomiting No 02/05/24 17:19 SURVEY WORKER.OBEDOBDerek Anesthesia Postop Eval I: Fluid Summary Crystalloid volume administer 1,000 02/05/24 17:19 SURVEY WORKER.OBEDOBY (ml) Colloids volume administered ( ml) Blood Product volume administered (ml) Total IV fluid infused 1,000 02/05/24 17:19 SURVEY WORKER.LISA Anesthesia Postop Eval I: Summary Notes Anesthesia Complication No 02/05/24 17:19 SURVEY WORKER.LISA Anesthesia Complication Comment: Post-operative progress note Anesthesia: Postop Eval II Evaluation Mental status: Awake Pain Level: 2 nausea: No Vomiting: No
--- NOTE | 2024-02-05 17:26 | PCM.POSTANE2 ---
Anesthesia Postop Eval I Sum Postop Eval Completion status Anesthesia document: Postop Eval 1 completed: Yes Anesthesia Postop Eval I Summary Anesthesia Postop Eval I Summary: Anesthesia Postop Eval I: Assessment Summary Airway patent Yes 02/05/24 17:19 INFRASTRUCTURE CONSULTANT.[email or web address] Spontaneous unlabored Yes 02/05/24 17:19 INFRASTRUCTURE CONSULTANT.LISA respirations Mental status Awake,Calm 02/05/24 17:19 INFRASTRUCTURE CONSULTANT.OBEDOBDerek nausea No 02/05/24 17:19 INFRASTRUCTURE CONSULTANT.OBEDOBDerek Vomiting No 02/05/24 17:19 INFRASTRUCTURE CONSULTANT.OBEDOBDerek Anesthesia Postop Eval I: Fluid Summary Crystalloid volume administer 1,000 02/05/24 17:19 INFRASTRUCTURE CONSULTANT.OBEDOBY (ml) Colloids volume administered ( ml) Blood Product volume administered (ml) Total IV fluid infused 1,000 02/05/24 17:19 INFRASTRUCTURE CONSULTANT.LISA Anesthesia Postop Eval I: Summary Notes Anesthesia Complication No 02/05/24 17:19 INFRASTRUCTURE CONSULTANT.LISA Anesthesia Complication Comment: Post-operative progress note Anesthesia: Postop Eval II Evaluation Mental status: Awake Pain Level: 2 nausea: No Vomiting: No
[2024-02-05] MEDS: 0.9% Normal Saline (1000mL) 1,000 ML 50 ML IV (17:50)
[2024-02-05] MEDS: Acetaminophen 500 MG Tablet PO (18:53)
[2024-02-05 20:31] LABS: Mucous, Urine 0 SEEN /hpf (<or=2+); Red Blood Cells-Urine 0 SEEN /hpf (0-5); Squamous Epithelial Cells - UA 0 SEEN /hpf (0-5); White Blood Cells 0 SEEN /hpf (0-5)
[2024-02-05 20:36] LABS: Color, Urine Yellow (Yellow); Glucose, Dipstick Normal (Normal); Ketone-Dipstick Negative (Negative); Leukocyte Esterase-Dipstick Negative /ul (Negative); Nitrite-Dipstick Negative (Negative); Occult Blood-Urine Negative /ul (Negative); Protein-Dipstick 15 mg/dl (Negative); Urine Bilirubin Dipstick Negative (Negative); Urine Clarity Clear (Clear); Urine Urobilinogen Normal (Normal)
[2024-02-05 20:48] LABS: Amorphous Sediment 1+; Bacteria RARE /hpf (None Seen)
[2024-02-05] MEDS: oxyCODONE 5 MG Tablet PO (22:42)
[2024-02-05] MEDS: Piperacil/Tazobactam 3.375 GM in 0.9% Normal Saline (50mL MB+) 50 ML IV (22:42)
--- NOTE | 2024-02-06 | FLU_PTH ---
PATIENT: SARAH CORDERO II LOC: MS3 U#:[id number] AGE/SX: 68/M ROOM: MD316 RE02/05/[address]: Dr. Rohit Crawford MD : 1955 BED: 1 DIS: 02/06/2024 SPEC #: [id number] RECD: 02/06/24 09:11 STATUS: SONIYA REDoug #: [id number] ALFONSO: 02/06/24 00:[address]: Rohit Crawford DEPT: CYTOLOGY RECD BY: Homer Flores ENTERED: 02/06/24 09:13 SP TYPE: Fluid OTHR DR: Dr. López Ocampo MD Tissues: Peritoneal fluid Procedures: Special Stain Group II Surgery Specimen Level IV Cytospin Fluid HEADER OPERATION: Not noted PRE-OP DIAGNOSIS: Acute appendicitis TISSUE SUBMITTED: Peritoneal fluid for cytology DIAGNOSIS CYTOLOGY Peritoneal fluid for cytology (cytospin and cellblock): Negative for malignant cells. Acute inflammation. See comment. SJ.mr 02/09/2024 COMMENT Please make reference to additional specimen [id number] appendix, appendectomy with diagnosis of acute appendicitis and periappendicitis. Clinical correlation and appropriate follow up are necessary. CYTOLOGY STUDY Slides are reviewed. CYTOLOGY GROSS Received is 5 ml of yellow-cloudy fluid labeled with the patient's name and and designated per the requisition as Peritoneal fluid. Submitted for cytology preparation including cell block. Mr 02/06/2024 TC:2 CPT: 74233,67347
[2024-02-06 00:58] VITALS: BP 109/63; PULSE 78; RESP 16; TEMP 36.6; O2SAT 96
[2024-02-06] MEDS: Piperacil/Tazobactam 3.375 GM in 0.9% Normal Saline (50mL MB+) 50 ML IV (05:08)
[2024-02-06 06:24] LABS: Absolute Neutrophil Count 7.3 X10^3/uL (2.0-7.7); Hematocrit 27.2 % (40-54); Hemoglobin 7.8 g/dL (13.0-16.5); Lymphocyte % 9.6 % (19-41); Mean Corp Hgb Conc 28.7 g/dL (32-36); Mean Corpuscular Hgb 24.1 pg (27.0-32.0); Mean Corpuscular Volume 84.2 fL (80-94); Mean Platelet Vol. 8.6 fl (6.2-12.0); Monocyte# 0.21 X10^3/uL; Monocyte% 2.5 % (0-10); NRBC Flagged by Analyzer 0 % (0-5); Neutrophil # 7.26 X10^3/uL (2.7-7.7); Neutrophil % 87.5 % (47-70); POSITIVE MORPHOLOGY YES; Platelet Count 137 K/mm3 (150-450); RBC Distribution Width CV 20.8 % (11.6-14.6); RBC Distribution Width SD 64.4 fl (35.1-43.9); Red Blood Count 3.23 M/mm3 (4.6-6.2); White Blood Count 8.3 K/mm3 (4.4-11.0)
[2024-02-06 06:26] LABS: Differential Indicated SCAN CRITERIA MET
[2024-02-06 06:34] VITALS: BP 95/61; PULSE 71; RESP 16; TEMP 36.5; O2SAT 97
[2024-02-06 06:36] LABS: Anion Gap 6 (5-15); BUN 21 mg/dL (7-18); BUN/Creat Ratio 22.5 RATIO (10-20); Calcium,Total 7.5 mg/dL (8.5-10.1); Chloride 110 mmol/L (98-107); Creatinine, Serum 0.93 mg/dL (0.70-1.30); EST Glomerular Filtration Rate 85 mL/min (>60); Est Glom Filt Rate - Afr Amer 103 mL/min (>60); Estimated Creatinine Clearance 70.67 ml/min; Glucose 159 mg/dL (74-106); Sodium Level 138 mmol/L (136-145)
[2024-02-06] MEDS: Acetaminophen 500 MG Tablet PO (06:37)
[2024-02-06 08:06] VITALS: BP 105/58; PULSE 71; RESP 16; TEMP 36.5; O2SAT 96
[2024-02-06] MEDS: oxyCODONE 5 MG Tablet PO (08:20)
[2024-02-06 08:36] LABS: Hematocrit 27.3 % (40-54); Hemoglobin 7.9 g/dL (13.0-16.5)
[2024-02-06 09:29] LABS: Platelet Estimate SLT DEC (ADEQ); Platelet Morphology LARGE; Toxic Granulation 2+; Vacuolated Cells 1+
[2024-02-06 09:30] LABS: Anisocytosis 3+; Hypochromasia 2+; Microcytosis 2+; Ovalocyte 1+; Polychromasia 1+; Schistocytes RARE; Tear Drop Cell 1+
[2024-02-06 09:33] LABS: Spherocyte 1+
--- NOTE | 2024-02-06 09:39 | PCM.DC ---
Discharge Instructions Diet Discharge Diet: No restrictions Activity Discharge Activity: May Not Drive (No driving while using narcotic pain medication) and May Shower (Postoperative day 1) May shower in (days): 1 Ice area for (Minutes): 20 Lifting Restrictions: No lifting greater than 15 pounds for 2 weeks after surgery Dressing / Incision Call your doctor if your incision/area has: Continuous Slow Oozing, Increased Pain/ Swelling, Increased Redness, Foul Smelling Discharge and Swelling at the incision site Call your doctor if you observe: Fever of 101 or Higher Remove Dressing in: 1 day (Please leave Steri-Strips intact until they fall off spontaneously or are taken off at your follow-up visit) Cleanse incision/area with: Soap & Water Follow Up Care Please Follow Up With: Rohit Crawford MD When: 7-10days postop Test Results: Test results from this visit will be discussed in further detail at your follow-up appointment, if applicable. Discharge Plan Admission Admit Date/Time: 02/05/24 13:45 Primary Reason for Your Visit: Acute appendicitis Attending Provider: Rohit Crawford Primary Care Provider: López Ocampo Discharge Orders/Prescriptions Prescriptions: New oxycodone 5 mg Tablet 5 mg PO Q6H PRN PRN (Reason: Pain Score 6-10) 3 Days Qty: 10 0RF Continued cimetidine [Tagamet HB] 200 mg tablet 200 mg PO BID Rx Instructions: administer with meals Eligard (6 month) 45 mg syringe subcut Xgeva 120 mg/1.7 mL (70 mg/mL) solution 120 mg subcut .monthly atorvastatin 20 mg tablet 20 mg PO DAILY prednisone 5 mg tablet 5 mg PO BID tamsulosin 0.4 mg capsule 0.4 mg PO DAILY abiraterone 250 mg tablet 1,000 mg PO DAILY Other Ambulatory Orders: CBC W/Diff, Automated (Routine) Timeframe: 1 Week Facility: [facility] - Location: Laboratory Ordered By: Dr. Rohit Crawford Referrals / Follow Up: López Ocampo MD [Primary Care Provider] - Disposition Disposition (needs filled in before D/C Order can be placed): Home, Self Care
--- NOTE | 2024-02-06 09:43 | PCM.DC.SUM ---
Providers Date of Admission: 02/05/24 Primary Care Physician: Dr. López Ocampo MD Reason For Visit: ACUTE APPENICITIS Diagnosis Discharge Diagnosis (1) Acute appendicitis: Status: Acute Code(s): K35.80 - Unspecified acute appendicitis Qualifiers: Acute appendicitis type: with localized peritonitis Appendicitis abscess presence: without abscess Appendicitis gangrene presence: without gangrene Appendicitis perforation presence: without perforation Qualified Code(s): K35.30 - Acute appendicitis with localized peritonitis, without perforation or gangrene Plan: I am seeing this patient in conjunction with Dr. Crawford. He has also independently evaluated this patient. Patient with a 1 day history of waxing and waning right lower quadrant abdominal pain following a bowel movement. Patient notes chills and sweats with associated nausea and small amount of vomiting. He has stage [address] scan of ab/pel does confirm acute appendicitis. Plan for patient to proceed with a laparoscopic appendectomy with possible small bowel obstruction, possible open procedure with Dr. Crawford. Procedure details, risks and benefits have been explained. Patient and his have had the opportunity to ask and have questions answered. Patient verbally understands and agrees with the plan. It has been discussed that post-operatively the patient may need to be admitted for observation for pain control and IV fluids. Thank you for allowing us to participate in this patient's care. Medications at Discharge Home Medications abiraterone 250 mg tablet 1,000 mg PO DAILY prostate cancer 12/11/23 atorvastatin 20 mg tablet 20 mg PO DAILY cholesterol 12/11/23 prednisone 5 mg tablet 5 mg PO BID prostate 12/11/23 tamsulosin 0.4 mg capsule 0.4 mg PO DAILY prostate 12/11/23 cimetidine 200 mg tablet (Tagamet HB) 200 mg PO BID 02/05/24 denosumab 120 mg/1.7 mL (70 mg/mL) subcutaneous solution (Xgeva) 120 mg subcut .monthly 02/05/24 leuprolide acetate (6 month) 45 mg (6 month) subcutaneous syringe (Eligard) mg subcut 02/05/24 oxycodone 5 mg tablet 5 mg PO Q6H PRN PRN Pain Score 6-10 3 days #10 tabs 02/06/24 Hospital Course Operations appendectomy Procedures None Summary of Care Provided Hospital Course: Patient is a 68-year-old male who presented on 02/05/2024 with complaints of acute onset right lower quadrant abdominal pain that started shortly after a bowel movement. His emergency room workup showed evidence of leukocytosis and CT imaging was read as consistent with acute appendicitis. Indeed, patient's exam was consistent with this diagnosis so a laparoscopic appendectomy was recommended. Interestingly, patient had been seen in our emergency department a month and a half prior because CT imaging done for another indication had found incidental evidence of acute appendicitis. However, at that time patient had no symptoms and outpatient follow-up was recommended but never undertaken by the patient. With this information patient was informed this could have bearing on his final surgical pathology or the final operation to be performed, but this was counterbalanced by the fact that he is on systemic steroids and we sought to limit the extent of his surgery so as to invite the least amount of infection/leak risk as possible. Procedure was undertaken uneventfully evening of 02/05/2024 but patient was admitted to the hospital floor postoperatively for some additional antibiotic therapy as I encountered significant serositis to the distal small bowel and proximal colon. Evening of postoperative day 0 patient reported significant improvement of his symptoms. Seen again on postoperative day 1 patient stated that his abdomen felt very well but complained of right shoulder pain which was felt to be some retained CO2 insufflation. He was recommended to just increase his activity level and reassured that this would be expected to improve with time. He was also advanced to a regular diet which she tolerated well. Surprisingly, his morning labs showed a significant decrease in his hemoglobin from when it was checked during his emergency room visit. So significant was a drop that I opted to recheck the level with a repeat lab and this level was confirmed. Without a significant change in his vital signs though and any symptoms of anemia I opted to monitor him for several more hours and then informed him that we would go through of discharge but obtain a pre-clinic level when he arrived for short-term follow-up with me as an outpatient. I suspect this was more related to hemodilution with his IV fluid resuscitation. During the same conversation patient was advised on postoperative care instructions and all questions were answered. He was dismissed after demonstrating improvement in his shoulder discomfort and confirming reassuring vital signs. Physical Exam Const alert, oriented x3 and no apparent distress Resp normal respiratory effort GI GI Narrative: Operative dressings intact with mild bloody strikethrough to to the bandages. Nondistended, soft, tenderness to palpation primarily about incision sites but was appropriate in's intensity. Weight / BMI Weight Weight: 149 lb 0.52 oz Body Mass Index (BMI) 22.6 ABG / Lab / Microbiology Data 02/06/24 08:15 02/06/24 05:42 Laboratory: Laboratory Results - last 24 hr 02/05/24 09:50: WBC 11.7 H, RBC 4.23 L, Hgb 10.3 L, Hct 34.1 L, MCV 80.6, MCH 24.3 L, MCHC 30.2 L, RDW Std Deviation 59.8 H, RDW Coeff of Lydia 20.5 H, Plt Count 199, MPV 8.8, Immature Gran % (Auto) 0.400, Neut % (Auto) 62.8, Lymph % (Auto) 31.4, [place] % (Auto) 4.1, Eos % (Auto) 1.1, Baso % (Auto) 0.2, Absolute Neuts (auto) 7.4, Absolute Lymphs (auto) 3.69, Nucleated RBC % 0, Differential Comment SCANNED, Platelet Estimate ADEQUATE, Polychromasia 1+, Hypochromasia 1+, Anisocytosis 2+, Tear Drop Cells 1+, Ovalocytes 2+, PT 14.0, INR 1.1, APTT 23.5 L, Sodium 140, Potassium 3.6, Chloride 106, Carbon Dioxide 24.0, Anion Gap 10, BUN 23 H, Creatinine 0.98, Estim Creat Clear Calc 67.06, Est GFR (MDRD) Af Amer 97, Est GFR (MDRD) Non-Af 80, BUN/Creatinine Ratio 23.4 H, Glucose 97, Calcium 9.1 02/05/24 13:25: Blood Type B NEGATIVE, Antibody Screen NEGATIVE 02/05/24 20:30: Urine Color Yellow, Urine Clarity Clear, Urine pH 8.0, Ur Specific [place] 1.010, Urine Protein 15 H, Urine Glucose (UA) Normal, Urine Ketones Negative, Urine Occult Blood Negative, Urine Nitrite Negative, Urine Bilirubin Negative, Urine Urobilinogen Normal, Ur Leukocyte Esterase Negative, Urine RBC 0 SEEN, Urine WBC 0 SEEN, Ur Squamous Epith Cells 0 SEEN, Amorphous Sediment 1+, Urine Bacteria RARE, Urine Mucus 0 SEEN 02/06/24 05:42: WBC 8.3, RBC 3.23 L, Hgb 7.8 L, Hct 27.2 L, MCV 84.2, MCH 24.1 L, MCHC 28.7 L, RDW Std Deviation 64.4 H, RDW Coeff of Lydia 20.8 H, Plt Count 137 L, MPV 8.6, Immature Gran % (Auto) 0.400, Neut % (Auto) 87.5 H, Lymph % (Auto) 9.6 L, [place] % (Auto) 2.5, Eos % (Auto) 0.0, Baso % (Auto) 0.0, Absolute Neuts (auto) 7.3, Absolute Lymphs (auto) 0.80 L, Nucleated RBC % 0, Diff Path Review May foll, Toxic Granulation 2+, Toxic Vacuolation 1+, Platelet Estimate SLT DEC, Plt Morphology Comment LARGE, Polychromasia 1+, Hypochromasia 2+, Anisocytosis 3+, Microcytosis 2+, Spherocytes 1+ H, Tear Drop Cells 1+, Ovalocytes 1+, Schistocytes RARE, Sodium 138, Potassium 4.0, Chloride 110 H, Carbon Dioxide 23.0, Anion Gap 6, BUN 21 H, Creatinine 0.93, Estim Creat Clear Calc 70.67, Est GFR (MDRD) Af Amer 103, Est GFR (MDRD) Non-Af 85, BUN/Creatinine Ratio 22.5 H, Glucose 159 H, Calcium 7.5 L 02/06/24 08:15: Hgb 7.9 L, Hct 27.3 L Radiography Diagnostic Testing: Radiology Impression Abdomen/Pelvis CT 02/05/24 10:53 IMPRESSION: Findings in keeping with acute appendicitis. Linear scarring at the lung bases. Nonspecific mild degree of bilateral perinephric stranding. Electronically Signed: Maximo Krause MD at 12:08 EDT , Chest X-Ray 02/05/24 14:02 IMPRESSION: Mild degree of increased markings at the lung bases with confluence worse at the right lung base suggestive of atelectasis and/or scarring. Blunting of both costophrenic angles. Electronically Signed: Maximo Krause MD at 14:15 EDT , D/C Instructions Discharge Diet: No restrictions May shower in (days): 1 Ice area for (Minutes): 20 Call your doctor if your incision/area has: Continuous Slow Oozing, Increased Pain/ Swelling, Increased Redness, Foul Smelling Discharge and Swelling at the incision site Call your doctor if you observe: Fever of 101 or Higher Cleanse incision/area with: Soap & Water Please Follow Up With: Rohit Crawford MD When: 7-10days postop Meaningful Use Info Meaningful Use Meaningful Use Diagnoses (Choose all that apply): None applicable Ischemic Stroke Statin Dosing Therapy Reference: STATIN DOSE THERAPY REFERENCE: * Patients > 75 years receive moderate or high dose statin therapy. * Patients 75 years or YOUNGER should receive HIGH intensity statin dose unless contraindicated. You will be required to document reason for non-treatment if statin daily dose does not meet guidelines. HIGH DOSE STATIN THERAPY DAILY Atorvastatin > than or = to 40 mg Rosuvastatin > than or = to 20 mg Amlodipine + Atorvastatin > than or = to 2.5/40 mg Ezetimibe + Simvastatin 10/80 mg Simvastatin 80mg Discharge Plan Admission Admit Date/Time: 02/05/24 13:45 Primary Reason for Your Visit: Acute appendicitis Attending Provider: Rohit Crawford Primary Care Provider: López Ocampo Discharge Orders/Prescriptions Prescriptions: New oxycodone 5 mg Tablet 5 mg PO Q6H PRN PRN (Reason: Pain Score 6-10) 3 Days Qty: 10 0RF Continued cimetidine [Tagamet HB] 200 mg tablet 200 mg PO BID Rx Instructions: administer with meals Eligard (6 month) 45 mg syringe subcut Xgeva 120 mg/1.7 mL (70 mg/mL) solution 120 mg subcut .monthly atorvastatin 20 mg tablet 20 mg PO DAILY prednisone 5 mg tablet 5 mg PO BID tamsulosin 0.4 mg capsule 0.4 mg PO DAILY abiraterone 250 mg tablet 1,000 mg PO DAILY Other Ambulatory Orders: CBC W/Diff, Automated (Routine) Timeframe: 1 Week Facility: [facility] - Location: Laboratory Ordered By: Dr. Rohit Crawford Referrals / Follow Up: López Ocampo MD [Primary Care Provider] - Disposition Disposition (needs filled in before D/C Order can be placed): Home, Self Care Charges/Coding Visit Charges Inpatient E&M: 99110 Disch Hosp
[2024-02-06 10:52] VITALS: BP 119/64; PULSE 88; RESP 18; TEMP 36.6; O2SAT 97
[2024-02-09 14:21] LABS: Pathologist Review Reviewed
== END 2024-02-06 11:52 | disposition home or self-care (01) ==
LOC: ED 13:22 → SDC 13:30 → ACINP 13:30 → SDC 17:29 → MS3 17:29
PROVIDERS: Physician Assistant; Admitting Provider Surgery; Emergency Provider Emergency Medicine; PCP Family Medicine; Visit Provider Surgery
PROC: 0DTJ4ZZ Resection of Appendix, Percutaneous Endoscopic Approach (ICD-10-PCS; CPT 44970; principal; 2024-02-05 15:10)
DX: K35.30 Acute appendicitis with localized peritonitis, without perforation or gangrene (principal); C79.51 Secondary malignant neoplasm of bone; C61 Malignant neoplasm of prostate; K40.90 Unilateral inguinal hernia, without obstruction or gangrene, not specified as recurrent; Z79.818 Long term (current) use of other agents affecting estrogen receptors and estrogen levels; R18.8 Other ascites; M25.511 Pain in right shoulder; Z79.899 Other long term (current) drug therapy; D64.9 Anemia, unspecified
CPT/HCPCS: 44970; 00840; 36415; 71045; 74176; 80048; 81001; 85014; 85018; 85025; 85610; 85730; 86850; 86900; 86901; 87070; 87075; 87077; 87186; 87205; 88108; 88304; 88305; 88313; 93005; 94668; 96365; 96366; 96375; 96376; 99221; 99285; J7030; J7040; A4216; G0378; J2405

== ENCOUNTER → 2024-02-16 | Outpatient (CLI) | payer MEDICARE, OTHER, SELFPAY ==
[2024-02-16 14:02] LABS: Absolute Neutrophil Count 3.7 X10^3/uL (2.0-7.7); Basophil# 0.01 X10^3/uL; Basophil% 0.2 % (0-1); Eosinophil# 0.13 X10^3/uL; Eosinophils% 2.4 % (0-5); Hematocrit 29.9 % (40-54); Hemoglobin 9.1 g/dL (13.0-16.5); Lymphocyte % 24.1 % (19-41); Mean Corp Hgb Conc 30.4 g/dL (32-36); Mean Corpuscular Hgb 24.9 pg (27.0-32.0); Mean Corpuscular Volume 81.9 fL (80-94); Mean Platelet Vol. 8.4 fl (6.2-12.0); Monocyte# 0.18 X10^3/uL; Monocyte% 3.3 % (0-10); NRBC Flagged by Analyzer 0 % (0-5); Neutrophil # 3.74 X10^3/uL (2.7-7.7); Neutrophil % 69.4 % (47-70); POSITIVE MORPHOLOGY YES; Platelet Count 196 K/mm3 (150-450); RBC Distribution Width CV 20.1 % (11.6-14.6); Red Blood Count 3.65 M/mm3 (4.6-6.2); White Blood Count 5.4 K/mm3 (4.4-11.0)
[2024-02-16 14:03] LABS: Differential Indicated SCAN CRITERIA MET
[2024-02-16 14:39] LABS: Anisocytosis 1+
== END | disposition home or self-care (01) ==
PROVIDERS: PCP Family Medicine; Referring Provider Surgery; Visit Provider Surgery
DX: D64.9 Anemia, unspecified (principal)
CPT/HCPCS: 36415; 85025

== ENCOUNTER 2024-09-18 12:23 | Inpatient (IN) | payer MEDICARE, OTHER, SELFPAY ==
[2024-09-18] VITALS (19 sets, daily range): BP systolic 56–141; BP diastolic 34–116; PULSE 84–152; RESP 15–29; TEMP 36.6–39.8; O2SAT 88–97; BMI 22.6; BMI 25.4
--- NOTE | 2024-09-18 13:08 | EKG12_ITS ---
Test Reason : DIZZINESS Blood Pressure : */* mmHG Vent. Rate : 90 BPM Atrial Rate : 90 BPM P-R Int : 134 ms QRS Dur : 76 ms QT Int : 366 ms P-R-T Axes : 44 -23 38 degrees QTcB Int : 447 ms Normal sinus rhythm Normal ECG Confirmed by LENIN NUNEZ, STEVE ([id number]), purchase request editor DERREK PAN ([id number]) on 09/21/2024 8:17:48 AM Referred By: CRIS/NIKIA Confirmed By: STEVE PHELPS MD
--- NOTE | 2024-09-18 13:10 | EX.ED.DYSGE1 ---
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 Yesterday he started feeling dizzy. Mild shortness of breath. Nausea. Fever as high as 100. No vomiting. No diarrhea. No dysuria. No cough. No rashes. No abdominal pain. Prior similar symptoms: No Recent Illness/Hospitalization: No [facility] Medical History (Updated 09/18/24 @ 15:[address] Augustin Carney MD) Dizziness Home Medications ?Medication ?Instructions ?Recorded ?Last Taken ?Type abiraterone 250 mg tablet 1,000 mg PO DAILY prostate cancer 12/11/23 09/17/24 History atorvastatin 20 mg tablet 20 mg PO QHS cholesterol 12/11/23 09/17/24 History prednisone 5 mg tablet 5 mg PO BID prostate 12/11/23 09/17/24 History tamsulosin 0.4 mg capsule 0.4 mg PO DAILY prostate 12/11/23 09/17/24 History cimetidine 200 mg tablet (Tagamet 200 mg PO BID 02/05/24 09/17/24 History HB) leuprolide acetate (6 month) 45 mg 45 mg subcut .COMPLEX 02/05/24 09/15/24 History (6 month) subcutaneous syringe (Eligard) darbepoetin dagmar in polysorbat See Rx Instructions IV .COMPLEX 09/18/24 Unknown History Allergy/AdvReac Type Severity Reaction Status Date / Time No Known Allergies Allergy Verified 09/18/24 12:29 Social History Smoking Status: Never smoker ROS ROS ED ROS Narrative Fever of 101. Short of breath. Nausea. Dizziness. Hypotension. Constitutional Constitutional ED: Reports fever(s) Eyes Eyes: Denies blurry vision ENT ENT ED: Denies ear pain Cardiovascular Cardiovascular: Denies chest pain Respiratory/Chest Respiratory/Chest: Reports dyspnea; Denies cough Gastrointestinal Gastrointestinal: Reports nausea; Denies abdominal pain, constipation, diarrhea, melena or vomiting Genitourinary Genitourinary ED: Denies dysuria or hematuria Musculoskeletal Musculoskeletal: Denies arthralgias Integumentary Denies abscess Neurologic Neurologic: Reports headache(s) Psychiatric Psychiatric: Denies anxiety Endocrine Endocrinology: Denies cold intolerance Hematologic/Lymphatic Hematologic/Lymphatic: Reports none Allergic/Immunologic Allergic/Immunologic ED: Denies mouth swelling, tongue swelling or urticaria EXAM Physical Exam Narrative Exam Narrative: 69-year-old male lying in bed. He is hypotensive at 80/72. There is family at bedside. He possibly may be septic. H EENT exam mild dry mucous membranes. He has got a bandage on top of his head from recent Mohs surgery. There is no cellulitis. Neck nontender no lymphadenopathy. No JVD. Lungs clear to auscultation bilaterally. Heart regular rhythm no murmur. Chest wall ribs nontender. Abdomen soft nontender. No peritoneal signs. No localizing tenderness. No hernia or mass. No obstruction. Back nontender. Moving all 4 extremities. Nontender no edema. No cellulitis. No cords. Neurologically he is awake and alert. Answer questions following commands. Normal strength. Const Vital Signs: 09/18/24 12:24 09/18/24 12:26 09/18/24 12:42 Temperature 97.8 F Temperature Source Oral Pulse Rate 93 88 Respiratory Rate 18 18 Blood Pressure 56/34 L 56/34 L 80/72 L Blood Pressure Mean 41 41 74 Pulse Ox 97 95 Oxygen Delivery Method Room Air Room Air 09/18/24 13:18 09/18/24 13:51 09/18/24 14:30 Temperature 98.4 F Temperature Source Oral Pulse Rate 87 85 Respiratory Rate 19 H 20 H Blood Pressure 70/51 L 85/53 L Blood Pressure Mean 57 63 Pulse Ox 93 93 Oxygen Delivery Method Room Air Room Air Positive well nourished and well developed; Negative for cachectic, contractures or unkempt General Appearance ED: well developed; Negative for unkempt, cachectic, contractures, cyanotic, diaphoretic, NAD or pallor Nutritional Appearance: Negative for cachectic HEENT Reports dry mucous membranes Negative for trauma or tenderness Mouth ED: Yes dry mucous membranes Mouth: dry mucous membranes Eyes PERRL and EOMs intact bilaterally Neck no lymphadenopathy, supple and no JVD Chest Wall inspection of chest normal and palpation of chest normal Resp normal respiratory effort and clear to auscultation bilaterally Cardio regular rate, regular rhythm, S1 normal heart sound, S2 normal heart sound and no murmurs GI normal to inspection, nondistended, normoactive bowel sounds, non-tender, non-distended and no masses Palpation: soft; Negative for tender, guarding or rebound tenderness present Back/Spine no CVA tenderness General Back: Negative for CVA tenderness Cervical Spine: Negative for cervical spine tenderness Thoracic Spine / Upper Back: Negative for thoracic spinal tenderness or paraspinal muscle tenderness Lumbar Spine / Lower Back: Negative for lumbar spinal tenderness Extremity normal to inspection General Extremety ED: Negative for edema or tenderness General Extremity: Negative for edema Neuro oriented x3 and CN's II-XII intact bilaterally Sensorium / Orientation: alert; Negative for orientation impaired Motor Exam: strength 5/5 throughout Psych mental status grossly normal Appearance: Negative for unkempt Attitude: No agitated Mood & Affect: Negative for depressed, anxious or tearful Skin no rashes or lesions noted, no wounds and skin turgor normal General Skin Exam: Negative for jaundice or pallor Lesions: No lesion noted Rashes: No rashes noted Trauma: Negative for abrasion Wounds: Negative for wounds noted MDM MDM MDM Narrative Medical decision making narrative: 69-year-old male on immunotherapy for prostate cancer with bony mets is hypotensive with a low-grade fever at home the 100 101 started yesterday. Concern for sepsis, dehydration versus other etiologies. Will place in the sepsis protocol workup. Received 2 L of saline. Zofran for his nausea. Patient will need to be admitted. Repeat exam at 3 PM today states he is feeling improved. His blood pressure is currently 85/52. He said he feels a little better. I gone over the test results of both he and his family. I spoke to the hospitalist. He can get 1/4 L of fluid. Or start him on Zosyn and Vanco. He will be admitted to the ICU. Presumption of sepsis. Acute kidney injury. Known cancer. Would like to get a CAT scan with IV contrast due to his current kidney function we will hold off on that at this time. History & Record Review Discussion w/independent historian: Patient and Family Additional record(s) reviewed:: Prior inpatient record, Prior outpatient record, Prior ED visit and Prior labs Lab Data Attestation: I reviewed the patient's lab results. Lab results narrative: CBC shows a white count of 4.4. H&H 8.6 and 29.3. Platelets 119. PT/INR 17 and 1.4. PTT 36. Electrolytes show a gap 14. BUN and creatinine of 43 and 2.1. Glucose 75. Lactic acid 2.3. Liver enzymes unremarkable. UA normal. 5-10 white cells no bacteria. No nitrates. Culture pending. Chest x-ray negative. COVID, flu and RSV are negative. Labs: Laboratory Results - last 24 hr 09/18/24 09/18/24 09/18/24 12:40 13:30 13:45 WBC 4.4 RBC 3.63 L Hgb 8.6 L Hct 29.3 L MCV 80.7 MCH 23.7 L MCHC 29.4 L RDW Std Deviation 62.0 H RDW Coeff of Lydia 21.4 H Plt Count 119 L MPV 8.8 Immature Gran % (Auto) 0.200 Neut % (Auto) 87.5 H Lymph % (Auto) 10.7 L [place] % (Auto) 0.9 Eos % (Auto) 0.5 Baso % (Auto) 0.2 Absolute Neuts (auto) 3.8 Absolute Lymphs (auto) 0.47 L Nucleated RBC % 0 Hypochromasia 1+ Anisocytosis 1+ PT 17.7 H INR 1.4 APTT 36.6 H Sodium 137 Potassium 4.1 Chloride 102 Carbon Dioxide 20.3 L Anion Gap 14 BUN 43 H Creatinine 2.13 H Estim Creat Clear Calc 30.37 L Est GFR (MDRD) Non-Af 32 L BUN/Creatinine Ratio 20.1 H Glucose 75 Lactic Acid 2.3 H* Calcium 8.6 Total Bilirubin 1.76 H AST 28 ALT 20 Alkaline Phosphatase 152 H Troponin T High Sens 47 H Total Protein 6.1 Albumin 3.3 L Globulin 2.8 Albumin/Globulin Ratio 1.2 Urine Color Yellow Urine Clarity Clear Urine pH 6.0 Ur Specific [place] 1.015 Urine Protein 30 H Urine Glucose (UA) Normal Urine Ketones 5 H Urine Occult Blood 10 H Urine Nitrite Negative Urine Bilirubin 1 H Urine Urobilinogen 1 H Ur Leukocyte Esterase 25 H Urine RBC 0 SEEN Urine WBC 5-10 SEEN Ur Squamous Epith Cells 0 SEEN Urine Bacteria 0 SEEN Hyaline Casts 0-5 SEEN Urine Mucus 0 SEEN Radiography Chest X-Ray - ED: 1 View, Read by ED Physician, Read by Radiologist, Normal, Heart, Lungs, Mediastinum, Bony Structures, No Acute Disease and Chronic Changes Diagnostic Testing: Clinical Impression(s) from Imaging Studies Chest X-Ray 09/18/24 13:20 IMPRESSION: No acute process detected. Reading Location: [facility] Chest x-ray, portable, single view interpreted by myself shows no acute abnormality. Rhythm Strip Rhythm Strip: Sinus Rhythm Rate: 90 Ectopy: None EKG Initial EKG: Attestation: I personally reviewed and interpreted this EKG as follows: Interpretation: Sinus Rhythm and No Acute Injury Pattern Comments: Sinus rhythm rate of 90 no acute signs of NV or ischemia. No ST elevation. No dysrhythmia. He does have inverted T waves in V1 to. Critical Care Time Critical Care Time: Yes Critical care time (excluding procedures): 30-74 minutes, Including time spent:, Discussing w/Patient &/or Family/News Cameraman, Discussing w/Consultants, Arranging Admission or Transfer and - (40 minutes) Discharge Plan Triage Chief Complaint: Dizziness ED Provider: Augustin Carney Dx/Rx/DC Orders Clinical Impression: Acute hypotension, History of prostate cancer, Sepsis, Acute kidney injury, Acute dehydration Prescriptions: No Action cimetidine [Tagamet HB] 200 mg tablet 200 mg PO BID Rx Instructions: administer with meals Eligard (6 month) 45 mg syringe 45 mg subcut .COMPLEX Rx Instructions: 45 mg subcutaneously EVERY 6 MONTHS; atorvastatin 20 mg tablet 20 mg PO QHS prednisone 5 mg tablet 5 mg PO BID tamsulosin 0.4 mg capsule 0.4 mg PO DAILY abiraterone 250 mg tablet 1,000 mg PO DAILY darbepoetin dagmar in polysorbat [Aranesp (in polysorbate)] See Rx Instructions IV .COMPLEX Patient Comments: PT UNSURE OF STRENGTH, BUT TOOK THIS MONTH (SEPTEMBER 2024) Rx Instructions: intravenously EVERY MONTH; Primary Care Provider: López Ocampo Referrals: López Ocampo MD [Primary Care Provider] - Print Language: Chinese Disposition Disposition: [facility]
[2024-09-18] MEDS: 0.9% Normal Saline (1000mL) 1,000 ML 999 ML IV ×4 (13:17→15:30)
[2024-09-18 13:18] LABS: Absolute Lymphocyte Count 0.47 X10^3/uL (0.83-4.51); Absolute Neutrophil Count 3.8 X10^3/uL (2.0-7.7); Basophil# 0.01 X10^3/uL; Basophil% 0.2 % (0-1); Eosinophil# 0.02 X10^3/uL; Eosinophils% 0.5 % (0-5); Hematocrit 29.3 % (40-54); Hemoglobin 8.6 g/dL (13.0-16.5); Lymphocyte # 0.47 X10^3/ul (0.83-4.51); Lymphocyte % 10.7 % (19-41); Mean Corp Hgb Conc 29.4 g/dL (32-36); Mean Corpuscular Hgb 23.7 pg (27.0-32.0); Mean Corpuscular Volume 80.7 fL (80-94); Mean Platelet Vol. 8.8 fl (6.2-12.0); Monocyte# 0.04 X10^3/uL; Monocyte% 0.9 % (0-10); NRBC Flagged by Analyzer 0 % (0-5); Neutrophil # 3.83 X10^3/uL (2.7-7.7); Neutrophil % 87.5 % (47-70); POSITIVE DIFFERENTIAL YES; POSITIVE MORPHOLOGY YES; Platelet Count 119 K/mm3 (150-450); RBC Distribution Width CV 21.4 % (11.6-14.6); Red Blood Count 3.63 M/mm3 (4.6-6.2); White Blood Count 4.4 K/mm3 (4.4-11.0)
[2024-09-18 13:19] LABS: Differential Indicated SCAN CRITERIA MET
--- NOTE | 2024-09-18 13:20 | RAD_ITS ---
PROCEDURE: CHEST 1 VIEW (PORTABLE) 09/18/2024 REASON FOR EXAM: DYSPNEA TECHNIQUE: Frontal view of the chest. COMPARISON: Chest radiograph February 05, 2024 FINDINGS: Hardware: None. Heart: Normal size. Lungs: Grossly clear. Bones: No aggressive process. Other: RAD/Chest 1 View (Portable) IMPRESSION: No acute process detected. Reading [facility]
[2024-09-18 13:29] LABS: International Normalized Ratio 1.4; Prothrombin Time (Protime)PT. 17.7 SECONDS (11.7-14.9)
[2024-09-18 13:30] LABS: Partial Thromboplast Time 36.6 Seconds (24.1-36.2)
[2024-09-18 13:37] LABS: ALB/GLOB Ratio 1.2 RATIO (0.9-2.4); AST(SGOT) 28 U/L (<=37); Alanine Aminotransfer ALT/SGPT 20 U/L (<=46); Albumin, Serum 3.3 g/dL (3.4-4.8); Alkaline Phosphatase 152 U/L (40-129); Anion Gap 14 (5-15); BUN 43 mg/dL (4-19); BUN/Creat Ratio 20.1 RATIO (10-20); Calcium,Total 8.6 mg/dL (7.6-11.0); Carbon Dioxide 20.3 mmol/L (21.0-32.0); Chloride 102 mmol/L (98-108); Creatinine, Serum 2.13 mg/dL (0.70-1.20); EST Glomerular Filtration Rate 32 (>60); Estimated Creatinine Clearance 30.37 ml/min (50-250); Globulin 2.8 g/dL (2.2-4.2); Glucose 75 mg/dL (70-99); Potassium 4.1 mmol/L (3.3-5.1); Protein, Total 6.1 g/dL (5.9-8.4); Sodium Level 137 mmol/L (133-145); Total Bilirubin 1.76 mg/dL (0.00-1.30)
[2024-09-18 13:43] LABS: Bacteria 0 SEEN /hpf (None Seen); Mucous, Urine 0 SEEN /hpf (<or=2+); Red Blood Cells-Urine 0 SEEN /hpf (0-5); Squamous Epithelial Cells - UA 0 SEEN /hpf (0-5)
--- OUTSIDE RECORDS SUMMARY | 2024-09-18 13:45 | XMS RPT_ITS | CCD ---
Author Organization [facility] ion [facility] Care Team Providers Care Financial Specialist Name Role Phone DORCAS WATERS Unavailable Unavailable Lucian Vicente Unavailable Unavailable Arsalan Ocampo MD Primary Care Provider Natalya Dorsey RN Unavailable Natalya Dorsey RN Unavailable Unavailable Primary Care Provider UnavailJazlyn Stark III Attending Unavailable SELF, SELF Referring Unavailable Arsalan Ocampo MD Primary Care Provider Natalya Dorsey RN Unavailable Arsalan Ocampo MD Primary Care Provider Natalya Dorsey RN Unavailable Arsalan Ocampo MD Primary Care Provider Natalya Dorsey RN Unavailable SP MCKEON Attending Unavailable ARSALAN OCAMPO Referring Unavailab ARSALAN Khan Primary Care Unavailab SP Her Attending Unavailable SP MCKEON Referring Unavailable ARSALAN OCAMPO Primary Care Unavailab ARSALAN Khan MD Primary Care Physician ARSALAN OCAMPO MD Primary Care Unavailshireen CRAWFORD MD, DR PERFECTO Armas Attending Unavailable Natalya Dorsey RN Unavailable Dereje Herring MD Unavailable Arsalan Ocampo MD Primary Care Provider CATHERINE PERAZA Referring Unavailable ARSALAN OCAMPO Primary Care Unavailab le BURSLEY, CHRISTOPHER B Primary Care Unavailab DORCAS Colon Attending Unavailab le PODLOGAR, CATHERINE Referring Unavailable BURSLEY, NIYAHOPHER B Primary Care Unavailab DORCAS Colon Referring Unavailab le BURSLEY, CHRISTOPHER B Primary Care Unavailab le HEATHERDORCAS PEARSON Referring Unavailab le Podlogar COMMUNITY LIAISON OFFICER.JOI, Catherine Unavailable [phone] Derrek Hopper Attending Unavailable Bursley, López Primary Care Unavailable Bursley, López Referring Unavailable Bursley, López Primary Care Unavailable Rohit Crawford Consulting Unavailable Yvette, Rohit Attending Unavailable Bursley, López Primary Care Unavailable Yvette, Rohit Consulting Unavailable Yvette, Rohit Attending Unavailable Rohit Crawford Admitting Unavailable Bursley, López Primary Care Unavailable Yvtete, Rohit Attending Unavailable Yvette, Rohit Admitting Unavailable Bursley, López Primary Care Unavailable Yvette, Rohit Attending Unavailable Rohit Crawford Referring Unavailable Bursley, López Primary Care Unavailable Rubén Liu Attending Unavailable ENDY CURRAN Attending Unavailable PODLOGAR, CATHERINE Referring Unavailable BURSLEY, CHRISTOPHER B Primary Care Unavailab ROSEANNA Johnson Attending Unavailable PODLOGAR, CATHERINE Referring Unavailable BURSLEY, CHRISTOPHER B Primary Care Unavailab ROSEANNA Johnson Attending Unavailable PODLOGAR, CATHERINE Referring Unavailable BURSLEY, CHRISTOPHER B Primary Care Unavailab ROSEANNA Johnson Attending Unavailable PODLOGAR, CATHERINE Referring Unavailable BURSLEY, CHRISTOPHER B Primary Care Unavailab le PODLOGAR, CATHERINE Referring Unavailable BURSLEY, CHRISTOPHER B Primary Care Unavailab le ENDY CURRAN Attending Unavailable PODLOGAR, CATHERINE Referring Unavailable BURSLEY, CHRISTOPHER B Primary Care Unavailab ROSEANNA Johnson Attending Unavailable PODLOGAR, CATHERINE Referring Unavailable BURSLEY, CHRISTOPHER B Primary Care Unavailab le PODLOGAR, CATHERINE Referring Unavailable BURSLEY, CHRISTOPHER B Primary Care Unavailab le PODLOGAR, CATHERINE Referring Unavailable BURSLEY, CHRISTOPHER B Primary Care Unavailab le PODLOGAR, CATHERINE Referring Unavailable BURSLEY, CHRISTOPHER B Primary Care Unavailab le ENDY CURRAN Attending Unavailable PODLOGAR, CATHERINE Referring Unavailable BURSLEY, CHRISTOPHER B Primary Care Unavailab le ENDY CURRAN Attending Unavailable PODLOGAR, CATHERINE Referring Unavailable ARSALAN OCAMPO Primary Care Unavailab dutch Hodges MD, Suresh Unavailable [place] COMMUNITY LIAISON OFFICER.DIRECTOR OF HEALTH CARE MARKETING, Yasmine Unavailable [place] COMMUNITY LIAISON OFFICER.DIRECTOR OF HEALTH CARE MARKETING, Yasmine Unavailable SANJEEV ARANDA Referring Unavailable ARSALAN OCAMPO B Primary Care Unavailab le ABBI OCAMPOER B Primary Care Unavailab RICHIE Guadalupe Attending Unavailable ARSALAN OCAMPO B Primary Care Unavailab le ABRAMOVICH, DEREJE Referring Unavailable ABBI OCAMPOER B Primary Care Unavailab le ABRAMOVICH, DEREJE Referring Unavailable SANJEEV ARANDA Referring Unavailable ARSALAN OCAMPO B Primary Care Unavailab le VIJAYA, ABBIER B Primary Care Unavailab le SELF Referring Unavailable ABBI OCAMPOER B Primary Care Unavailab CANDACE Levi Referring Unavailable SANJEEV ARANDA Referring Unavailable ABBI OCAMPOER B Primary Care Unavailab le ABRAMOVICH, DEREJE Referring Unavailable ABBI OCAMPOER B Primary Care Unavailab le VIJAYA, ABBIER B Primary Care Unavailab le SANJEEV ARANDA Referring Unavailable SANJEEV ARANDA Referring Unavailable ABBI OCAMPOER B Primary Care Unavailab le VIJAYA, ABBIER B Primary Care Unavailab le ABRAMOVICH, DEREJE Referring Unavailable ABBI OCAMPOER B Primary Care Unavailab le ABRAMOVICH, DEREJE Referring Unavailable ABBI OCAMPOER B Primary Care Unavailab SANJEEV Hardy Referring Unavailable ABBI OCAMPOER B Primary Care Unavailab le ABRAMOVICHDEREJE Referring Unavailable ABBI OCAMPOER B Referring Unavailab le VIJAYA, ABBIER B Primary Care Unavailab le ABBI OCAMPOER B Attending Unavailab le ABBI OCAMPOER B Primary Care Unavailab le SANJEEV ARANDA Referring Unavailable ABBI OCAMPOER B Primary Care Unavailab le ABRAMOVICHDEREJE Attending Unavailable ABBI OCAMPOER B Primary Care Unavailab le VIJAYA, ABBIER B Primary Care Unavailab le ABRAMOVICH, DEREJE Referring Unavailable SANJEEV ARANDA Referring Unavailable ABBI OCAMPOER B Primary Care Unavailab le VIJAYA, NIYAHOPHER B Primary Care Unavailab le PODLOGLUBACATHERINE Referring Unavailable SANJEEV ARANDA Referring Unavailable ABBI OCAMPOER B Primary Care Unavailab le ARANDA, SANJEEV Referring Unavailable ABBI OCAMPOER B Primary Care Unavailab le VIJAYA, ABBIER B Primary Care Unavailab le PODLOGARCATHERINE Attending Unavailable CANDACE GUERRA Attending Unavailable DORCAS CHAMPAGNE Referring Unavailab le VIJAYA, ABBIER B Primary Care Unavailab le VIJAYA, ABBIER B Primary Care Unavailab le ABRAMOVICHDEREJE Referring Unavailable ABBI OCAMPOER B Primary Care Unavailab le ABRAMOVICH, DEREJE Attending Unavailable SANJEEV ARANDA Referring Unavailable VIJAYA, ABBIER B Primary Care Unavailab le VIJAYA, ABBIER B Primary Care Unavailab le ALNIEMMADELAINE Fonseca Attending Unavailable ALNIMADELAINE SAUNDERS Referring Unavailable EUGENIAZEKASRICHIE Referring Unavailable ABBI OCAMPOER B Primary Care Unavailab le ALNIMADELAINE SAUNDERS Attending Unavailable ARSALAN OCAMPO B Primary Care Unavailab le SANJEEV ARANDA Referring Unavailable ABRAMMIKELHDEREJE Referring Unavailable ABBI OCAMPOER B Primary Care Unavailab le REMIGIO, SANJEEV Referring Unavailable ABBI OCAMPOER B Primary Care Unavailab le ABRAMOVICHDEREJE Attending Unavailable ARSALAN OCAMPO Primary Care Unavailab le ABRAMOVICHDEREJE Referring Unavailable SANJEEV ARANDA Referring Unavailable ABBI OCAMPOER B Primary Care Unavailab le VIJAYA, ABBIER B Primary Care Unavailab le ABRAMOVICDEREJE Gross Referring Unavailable ARSALAN OCAMPO B Primary Care Unavailab le ABRAMOVICHDEREJE Referring Unavailable ABBI OCAMPOER B Primary Care Unavailab le PODLOGARCATHERINE Attending Unavailable ARSALAN OCAMPO B Primary Care Unavailab le ABRAMOVICHDEREJE Referring Unavailable SANJEEV ARANDA Referring Unavailable ABBI OCAMPOER B Primary Care Unavailab le VIJAYA, ABBIER B Primary Care Unavailab le TEE ELLIS Referring Unavailable ABBI OCAMPOER B Primary Care Unavailab le FAZEKAS, GOLDENUZSAMEGHAN Referring Unavailable MARIA ESTHERSRICHIE Attending Unavailable ARSALAN OCAMPO Primary Care Unavailab le ABRAMOVICHDEREJE Referring Unavailable ARSALAN OCAMPO Primary Care Unavailab DEREJE Pollack Attending Unavailable ARANDA SANJEEV Referring Unavailable ARSALAN OCAMPO Primary Care Unavailab TEE James Referring Unavailable ARSALAN OCAMPO Primary Care Unavailab dutch SELF Referring Unavailable RICHIE DEJESUS Attending Unavailable ARSALAN OCAMPO Primary Care Unavailab VICENTE Gates Attending Unavailable DEREJE HERRING Referring Unavailable ARSALAN OCAMPO Primary Care Unavailab SURESH Clements Attending Unavailable ARSALAN OCAMPO Primary Care Unavailab MADELAINE Sorto Referring Unavailable Allergies Allergy Classification Reported Allergen(s) Allergy Type Date of Onset Reaction(s) Facility (2 sources) OTHER; Translations: [OTHER] Propensity to adverse reactions (disorder) 11-30-19 [facility] Repository (20 sources) envirornmental [Other] Propensity to adverse reactions 11-30-19 Intolerance [facility] Work Phone: (20 sources) Ragweed pollen; Translations: [RAGWEED POLLEN] Propensity to adverse reactions to drug 06-11-19 Other: See Comments [facility] Work Phone: Medications Current Medications Medication Drug Class(es) Dates Sig (Normalized) Sig (Original) abiraterone acetate 250 mg oral tablet (20 sources) Cytochrome P450 17A1 Inhibitor Start: 04-22-2023 End: 03-30-2024 abiraterone 250 mg tablet Indications: Prostate cancer metastatic to bone (HCC) TAKE 4 TABLETS ONCE DAILY ON AN EMPTY STOMACH 1 HOUR BEFORE OR 2 HOURS AFTER A MEAL 120 tablet 5 03/30/2024 Active Start: 01-16-2023 take 4 tablets by mo [facility] once daily 1 hour(s) after mealtime abiraterone 250 mg tablet Indications: Prostate cancer metastatic to bone (HCC) TAKE 4 TABLETS (1,000MG) BY MOUTH ONCE DAILY ON AN EMPTY STOMACH 1 HOUR BEFORE OR 2 HOURS AFTER A MEAL 120 tablet 5 01/16/2023 Active Start: 09-23-2022 abiraterone 25 0 mg oral tablet Dose : 1,000 mg = 4 tab(s), Oral, qDay, # 120 tab(s), 0 Refill(s) Start Date: 09/23/22 Status: Ordered Start: 02-12-2022 End: 01-14-2023 take 4 tablets by mouth once daily 1 hour(s) after mealtime abiraterone 250 mg tablet Indications: Prostate cancer metastatic to bone (HCC) TAKE 4 TABLETS (1,000MG) BY MOUTH ONCE DAILY ON AN EMPTY STOMACH 1 HOUR BEFORE OR 2 HOURS AFTER A MEAL 120 tablet 5 08/13/2022 01/14/2023 Discontinued Start: 08-10-2021 End: 08-28-2021 take 4 tablets by mouth once daily 1 hour(s) after mealtime abiraterone 250 mg tablet Indications: Prostate cancer metastatic to bone (HCC) TAKE 4 TABLETS (1,000MG) BY MOUTH ONCE DAILY ON AN EMPTY STOMACH 1 HOUR BEFORE OR 2 HOURS AFTER A MEAL 120 tablet 5 08/28/2021 Active Start: 05-03-2021 End: 07-23-2021 take 4 tablets by mouth once daily abiraterone 250 mg tablet Indications: Prostate cancer metastatic to bone (HCC) TAKE 4 TABLETS BY MOUTH ONCE DAILY ON AN EMPTY STOMACH AT LEAST 1 HOUR BEFORE OR 2 HOURS AFTER EATING. 120 tablet 0 07/23/2021 Active Comment on above: TAKE 4 TABLETS BY MO UT ONCE DAILY ON AN EMPTY STOMACH AT LEAST 1 HOUR BEFORE OR 2 HOURS AFTER EATING. Take 4 tablets (1000 mg) by mouth once daily on an empty stomach, at least 1 hour before or 2 hours after eating. TAKE 4 TABLETS (1,00 0MG) BY MOUTH ONCE DAILY ON AN EMPTY STOMACH 1 HOUR BEFORE OR 2 HOURS AFTER A MEAL atorvastatin 20 mg oral tablet (20 sources) HMG-CoA Reductase Inhibitor Start: 023 End: 025 take 1 tablet by mouth once daily at bedtime for hyperlipidemia atorvastatin (LIPITOR) 20 mg tablet Take 1 tablet by mouth daily at bedtime. For cholesterol. 90 tablet 3 03/15/2024 03/15/2025 Active Comment on above: Take 1 tablet by divya th daily at bedtime. For cholesterol. calcium carbonate 1250 mg / cholecalciferol 125 unt oral tablet (1 source) Vitamin D take 1 tablet by mouth twice daily Calcium Carb-Cholecalcifero l (Calcium 500 + D) 500-125 MG-UNIT tablet Take 1 tablet by mouth 2 times daily. 0 Active Calcium Carbonate / vitamin D3 (20 sources) take 1 tablet by mouth twice daily calcium carbonate/vitamin D3 (CALCIUM + D ORAL) Take 1 tablet by mouth twice daily. Active take 1 tablet by mouth twice [place] calcium carbonate/vitamin D3 (CALCIUM + D ORAL) Take 1 tablet by mouth twice daily. 0 Active Comment on above: Take 1 tablet by divya th twice daily. cimetidine 200 mg oral tablet (20 sources) Histamine-2 Receptor Antagonist take 1 tablet by mouth twice daily cimetidine (TAGAMET) 200 mg tablet Take 200 mg by mouth twice daily. Active Comment on above: Take 200 mg by mouth twice daily. darbepoetin dagmar in albumn john (ARANESP INJECTION) (20 sources) darbepoetin dagmar in albumn john (ARANESP INJECTION) by INJECTION(UNSPECIFIED PARENTERAL ROUTES) route every 4 weeks. PRN Active darbepoetin dagmar in albumn john (ARANESP INJECTION) by INJECTION(UNSPECIFIED PARENTERAL ROUTES) route every 4 weeks. PRN 0 Active dexamethasone 4 mg oral tablet (20 sources) Corticosteroid Start: 12-12-2023 take 1 tablet by mouth once daily at breakfast dexAMETHasone (DECADRON) 4 mg tablet Take 1 tablet by mouth daily with breakfast. Take on mornings of injections 12 tablet 2 12/12/2023 Active enteric contrast (will be provided with radiology test) (1 source) Start: 12-05-2023 End: 12-05-2023 take 1 dose by mouth once, then take 1 dose by mouth once enteric contrast (will be provided with radiology test) Indications: Prostate cancer metastatic to bone (HCC) , Abdominal pain, unspecified abdominal location , Acute left-sided low back pain, unspecified whether sciatica present Take 1 Each by mouth one time only for [address] ABD/PEL WO Routine order Administer, As Directed One Time Only, via Oral, Rectal, both Oral and Rectal, Enteric Tube, Stoma or Indwelling Catheter, Enteric Contrast as designated per enteric contrast guidelines 1 Each 12/05/2023 12/05/2023 Active ibuprofen 200 mg oral capsule (1 source) Nonsteroidal Anti-inflammatory Drug Ibuprofen 200 mg cap Take by mouth every 6 hours as needed. Active iv contrast (will be provided with radiology test) (20 sources) Start: 12-05-2023 End: 12-06-2023 inject 1 dose intravenously once iv contrast (will be provided with radiology test) Indications: Prostate cancer metastatic to bone (HCC) , Abdominal pain, unspecified abdominal location , Acute left-sided low back pain, unspecified whether sciatica present CT Lumbar - No IV access, insert saline lock prior to the sedation, infusion, injection for imaging exam. Discontinue saline lock post exam. If Pt. has a central line or IVAD, may access for administration according to line specific nursing protocol. Once exam is complete flush line and de-access according to line specific nursing protocol in the CT contrast administration guidelines link. 1 Each 12/05/2023 12/06/2023 Active Start: 03-15-2021 iv contrast (w ill be provided with radiology test) MRI Prostate Inject, intravenously, once for 1 dose. No IV access, insert saline lock prior to the beginning of sedation, infusion, injection of imaging exam. Discontinue saline lock post exam. If Pt. has a central line or IVAD, may access for administration according to line specific nursing protocol. Once exam is complete flush line and de-access according to line specific nursing protocol in the MR contrast administration guidelines link. 1 Each 03/15/2021 Active Start: 03-15-2021 iv contrast (w ill be provided with radiology test) MRI Prostate Inject, intravenously, once for 1 dose. No IV access, insert saline lock prior to the beginning of sedation, infusion, injection of imaging exam. Discontinue saline lock post exam. If Pt. has a central line or IVAD, may access for administration according to line specific nursing protocol. Once exam is complete flush line and de-access according to line specific nursing protocol in the MR contrast administration guidelines link. 1 Each 0 03/15/2021 Active Comment on above: MRI Prostate Inject, intravenously, once for 1 dose. No IV access, insert saline lock prior to the beginning of sedation, infusion, injection of imaging exam. Discontinue saline lock post exam. If Pt. has a central line or IVAD, may access for administration according to line specific nursing protocol. Once exam is complete flush line and de-access according to line specific nursing protocol in the MR contrast administration guidelines link. LEUPROLIDE ACETATE, 6 MONTH, SC (1 source) LEUPROLIDE ACETA TE, 6 MONTH, SC Inject under the skin every 6 months. 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 60 tablet 2 07/23/2021 Active Comment on above: Take 1 tablet by divya th twice daily. TAKE 1 TABLET BY DIVYA TH TWICE DAILY Take 1 tablet by divya th two times a day. 72 hr scopolamine 0.0139 mg/hr transdermal system (14 sources) Anticholinergic Start: 05-18-19 scopolamine (TRANSDERM-SCOP) patch 1.5 mg/72 hr (delivers 1 mg over 3 days) Indications: Motion sickness, initial encounter Apply 1 Patch as directed every 72 hours. 4 Patch 05/18/2024 Active tamsulosin hydrochloride 0.4 mg oral capsule (20 sources) alpha-Adrenergic Jennifer Start: 01-20-20 End: 11-17-19 take 1 capsule by mouth once daily tamsulosin (FLOMAX) 0.4 mg Indications: Hypertrophy of prostate with urinary obstruction Take 1 capsule by mouth once daily. 90 capsule 3 11/17/2023 11/16/2024 Active Comment on above: TAKE [address] [facility] EVERY DAY Take 1 capsule by [facility] once daily. Take 1 capsule by [facility] daily at bedtime for 90 doses. Completed/Discontinued Medications Medication Drug Class(es) Dates Sig (Normalized) Sig (Original) cyclobenzaprine hydrochloride 10 mg oral tablet (20 sources) Muscle Relaxant Start: 02-03-2024 End: 04-14-2024 take 1 tablet by mouth twice daily as needed for muscle spasms cyclobenzaprine (FLEXERIL) 10 mg tablet Indications: Left inguinal pain Take 1 tablet by mouth two times a day as needed for muscle spasm. 60 tablet 02/03/2024 04/14/2024 Discontinued 0.6 ml darbepoetin dagmar 0.5 mg/ml prefilled syringe (14 sources) Erythropoiesis- stimulating Agent Start: 09-08-2024 End: 09-08-2024 inject 1 dose by subcutaneous injection once 300 mcg, SUBCUTANEOUS, ONCE, 1 dose, On Fri09/08/24 at 1100, PROTECT FROM LIGHT. REFRIGERATE Start: 07-14-2024 End: 07-14-2024 inject 1 dose by subcutaneous injection once 300 mcg, SUBCUTANEOUS, ONCE, 1 dose, On Fri07/14/24 at 1000, PROTECT FROM LIGHT. REFRIGERATE Start: 06-16-2024 End: 06-16-2024 inject 1 dose by subcutaneous injection once 300 mcg, SUBCUTANEOUS, ONCE, 1 dose, On Fri06/16/24 at 1030, PROTECT FROM LIGHT. REFRIGERATE Start: 05-12-2024 End: 05-12-2024 inject 1 dose by subcutaneous injection once 300 mcg, SUBCUTANEOUS, ONCE, 1 dose, On Fri05/12/24 at 1000, PROTECT FROM LIGHT. REFRIGERATE Start: 04-14-2024 End: 04-14-2024 inject 1 dose by subcutaneous injection once 300 mcg, SUBCUTANEOUS, ONCE, 1 dose, On Fri04/14/24 at 1000, PROTECT FROM LIGHT. REFRIGERATE Start: 03-17-2024 End: 03-17-2024 inject 1 dose by subcutaneous injection once 300 mcg, SUBCUTANEOUS, ONCE, 1 dose, On Fri03/17/24 at 1000, PROTECT FROM LIGHT. REFRIGERATE Start: 02-18-2024 End: 02-18-2024 inject 1 dose by subcutaneous injection once 300 mcg, SUBCUTANEOUS, ONCE, 1 dose, On Fri02/18/24 at 1000, PROTECT FROM LIGHT. REFRIGERATE Start: 01-21-2024 End: 01-21-2024 inject 1 dose by subcutaneous injection once 300 mcg, SUBCUTANEOUS, ONCE, 1 dose, On 01/21/24 at 0930, PROTECT FROM LIGHT. REFRIGERATE Start: 12-17-2023 End: 12-17-2023 inject 1 dose by subcutaneous injection once 300 mcg, SUBCUTANEOUS, ONCE, 1 dose, On 12/17/23 at 0930, PROTECT FROM LIGHT. REFRIGERATE Start: 11-19-2023 End: 11-19-2023 Darbepoetin Dagmar In Polysorb at 200 mcg injection (ARANESP) Start: 10-22-2023 End: 10-22-2023 Darbepoetin Dagmar In Polysorb at 200 mcg injection (ARANESP) Start: 09-24-2023 End: 09-24-2023 Darbepoetin Dagmar In Polysorb at 200 mcg injection (ARANESP) Start: 08-27-2023 End: 08-27-2023 Darbepoetin Dagmar In Polysorb at 200 mcg injection (ARANESP) Start: 07-31-2023 End: 07-31-2023 Darbepoetin Dagmar In Polysorb at 200 mcg injection (ARANESP) 1.7 ml denosumab 70 mg/ml injection (20 sources) RANK Ligand Inhibitor Start: 07-14-2024 End: 07-14-2024 inject 1 dose by subcutaneous injection once 120 mg, SUBCUTANEOUS, ONCE, 1 dose, On Fri07/14/24 at 1030, REFRIGERATE Start: 06-16-2024 End: 06-16-2024 inject 1 dose by subcutaneous injection once 120 mg, SUBCUTANEOUS, ONCE, 1 dose, On Fri06/16/24 at 1030, REFRIGERATE Start: 05-12-2024 End: 05-12-2024 inject 1 dose by subcutaneous injection once 120 mg, SUBCUTANEOUS, ONCE, 1 dose, On Fri05/12/24 at 1030, REFRIGERATE Start: 04-14-2024 End: 04-14-2024 inject 1 dose by subcutaneous injection once 120 mg, SUBCUTANEOUS, ONCE, 1 dose, On Fri04/14/24 at 1000, REFRIGERATE Start: 03-17-2024 End: 03-17-2024 inject 1 dose by subcutaneous injection once 120 mg, SUBCUTANEOUS, ONCE, 1 dose, On Fri03/17/24 at 1000, REFRIGERATE Start: 02-18-2024 End: 02-18-2024 inject 1 dose by subcutaneous injection once 120 mg, SUBCUTANEOUS, ONCE, 1 dose, On Fri02/18/24 at 1000, REFRIGERATE Start: 01-21-2024 End: 01-21-2024 inject 1 dose by subcutaneous injection once 120 mg, SUBCUTANEOUS, ONCE, 1 dose, On Fri01/21/24 at 1000, REFRIGERATE Start: 12-17-2023 End: 12-17-2023 inject 1 dose by subcutaneous injection once 120 mg, SUBCUTANEOUS, ONCE, 1 dose, On Fri12/17/23 at 0900, REFRIGERATE Start: 11-19-2023 End: 11-19-2023 denosumab 120 mg injection ( XGEVA) Start: 10-22-2023 End: 10-22-2023 denosumab 120 mg injection ( XGEVA) Start: 09-24-2023 End: 09-24-2023 denosumab 120 mg injection ( XGEVA) Start: 08-27-2023 End: 08-27-2023 denosumab 120 mg injection ( XGEVA) Start: 07-31-2023 End: 07-31-2023 denosumab 120 mg injection ( XGEVA) Start: 06-03-2022 End: 11-30-2022 denosumab 120 mg injection ( XGEVA) Start: 04-26-2022 End: 04-26-2022 denosumab 120 mg injection ( XGEVA) Start: 04-27-2021 End: 03-29-2022 denosumab 120 mg injection ( XGEVA) End: 09-08-2024 denosumab (XGEVA SUBCUTANEOU S) Inject subcutaneously once every month. 09/08/2024 Discontinued (Course of therapy completed) denosumab (XGEVA SUBCUTANEOUS) Inject subcutaneously once every month. Active DENOSUMAB SC Inj ect under the skin every 30 days. Last dose August 16, 2021 0 Active denosumab (XGEVA SUBCUTANEOUS) Inject subcutaneously once every month. 0 Active Comment on above: Inject subcutaneousl y once every month. fluocinonide 0.5 mg/ml topical cream (12 sources) Corticosteroid Start: 022 End: 023 fluocinonide (LIDEX) 0.05 % cream Indications: Notalgia paresthetica Apply to affected skin r back twice weekly prn flare 60 g 1 11/23/2021 04/17/2022 Discontinued Comment on above: Apply to affected sk in r back twice weekly prn flare 0.375 ml leuprolide acetate 120 mg/ml prefilled syringe (20 sources) Gonadotropin Releasing Hormone Receptor Agonist Start: 025 End: 025 inject 1 dose by subcutaneous injection once 45 mg, SUBCUTANEOUS, ONCE, 1 dose, On Fri09/10/24 at 1330, Hazardous Chemotherapy Drug: Use appropriate PPE. Start: 03-17-2024 End: 03-17-2024 inject 1 dose by subcutaneous injection once 45 mg, SUBCUTANEOUS, ONCE, 1 dose, On Fri03/17/24 at 1000, Hazardous Chemotherapy Drug: Use appropriate PPE. Start: 10-02-2023 End: 10-02-2023 leuprolide acetate (6 month) 45 mg IM syringe kit (LUPRON) Start: 04-26-2022 End: 04-26-2022 leuprolide acetate (6 month) 45 mg IM syringe kit (LUPRON) Start: 04-26-2021 End: 04-21-2022 leuprolide 45 mg injection (ELIGARD) leuprolide aceta te (ELIGARD SUBCUTANEOUS) Inject subcutaneously once every 6 months. Active leuprolide aceta te (ELIGARD SUBCUTANEOUS) Inject subcutaneously once every 6 months. 0 Active Comment on above: Inject subcutaneousl y once every 6 months. Problems Active Problems Problem Classification Problem Date Documented Date Episodic/Chronic Anal and rectal conditions (1 source) Disorder of large intestine; Translations: [Other specified diseases of anus and rectum] 11-19-2022 Episodic Appendicitis and other appendiceal conditions (1 source) Acute appendicitis with localized peritonitis, without perforation or gangrene; Translations: [Acute appendicitis with localized peritonitis, without perforation or gangrene] Onset: 4 Episodic Cancer of prostate (20 sources) Prostate cancer metastatic to bone; Translations: [Malignant neoplasm of prostate] Onset: 2 Chronic Coagulation and hemorrhagic disorders (1 source) Senile purpura; Translations: [Other nonthrombocytopenic purpura] 11-27-2022 Episodic Deficiency and other anemia (2 sources) Anemia, unspecified; Translations: [Anemia, unspecified] Onset: 4 Episodic Disorders of lipid metabolism (20 sources) Mixed hyperlipidemia; Translations: [Mixed hyperlipidemia] Onset: 4 03-18-2023 Chronic Esophageal disorders (20 sources) Gastro-esophageal reflux disease with esophagitis; Translations: [Gastroesophageal reflux disease with esophagitis] Onset: 7 10-09-2016 Chronic Gastritis and duodenitis (1 source) Chronic superficial gastritis; Translations: [Chronic superficial gastritis without bleeding] Chronic Hyperplasia of prostate (20 sources) Benign prostatic hypertrophy with outflow obstruction; Translations: [Benign prostatic hyperplasia with lower urinary tract symptoms] Onset: 7 Resolved: 7 01-03-2017 Chronic Nonspecific chest pain (6 sources) Chest pain; Translations: [Chest pain, unspecified] Onset: 4 06-11-2023 Episodic Nutritional deficiencies (2 sources) Vitamin D deficiency; Translations: [Vitamin D deficiency, unspecified] Onset: 5 08-09-2024 Chronic Nutritional deficiencies (2 sources) Iron deficiency; Translations: [Iron deficiency] Onset: 5 08-09-2024 Episodic Other and unspecified benign neoplasm (3 sources) Senile angioma; Translations: [Hemangioma of skin and subcutaneous tissue] Episodic Other and unspecified benign neoplasm (3 sources) Multiple benign melanocytic nevi ; Translations: [Melanocytic nevi, unspecified] Episodic Other and unspecified benign neoplasm (1 source) History of polyp of colon; Translations: [Personal history of colonic polyps] 02-27-2022 Episodic Other hematologic conditions (1 source) History of anemia; Translations: [Personal history of diseases of the blood and blood-forming organs and certain disorders involving the immune mechanism] 02-27-2022 Episodic Other injuries and conditions due to external causes (2 sources) Motion sickness; Translations: [Motion sickness, initial encounter] 05-18-2024 Episodic Other lower respiratory disease (7 sources) Dyspnea; Translations: [Shortness of breath] 06-11-2023 Episodic Other lower respiratory disease (2 sources) Shortness of breath; Translations: [SOB (shortness of breath)] Onset: 4 Episodic Other nervous system disorders (1 source) Notalgia paresthetica; Translations: [Paresthesia of skin] Episodic Other non-epithelial cancer of skin (10 sources) History of malignant neoplasm of skin; Translations: [Personal history of other malignant neoplasm of skin] Onset: 5 Episodic Other skin disorders (3 sources) Seborrheic keratosis; Translations: [Other seborrheic keratosis] Episodic Other skin disorders (3 sources) Lentiginosis; Translations: [Other melanin hyperpigmentation] Episodic Other upper respiratory disease (20 sources) Allergic rhinitis; Translations: [Allergic rhinitis, unspecified] 11-29-2005 Chronic Residual codes; unclassified (1 source) Acquired absence of other specified parts of digestive tract; Translations: [Acquired absence of other specified parts of digestive tract] Onset: 4 Episodic Secondary malignancies (20 sources) Secondary malignant neoplasm of bone; Translations: [Secondary malignant neoplasm of bone] Onset: 2 Chronic Secondary malignancies (2 sources) Secondary malignant neoplasm of bone; Translations: [Bone metastasis (HCC)] Onset: 2 Chronic Spondylosis; intervertebral disc disorders; other back problems (20 sources) Degeneration of lumbar intervertebral disc; Translations: [Other intervertebral disc degeneration, lumbar region] Onset: 4 Resolved: 6 07-13-2013 Chronic Unclassified (1 source) Unknown / UNK(Unknown) Onset: 7 Unclassified (1 source) Acute left-sided low back pain, unspecified whether sciatica present; Translations: [Acute left-sided low back pain, unspecified whether sciatica present] Onset: 4 Past or Other Problems Problem Classification Problem Date Documented Date Episodic/Chronic Abdominal pain (8 sources) Epigastric pain; Translations: [Epigastric pain] Onset: 12-10-2023 02-27-2022 Episodic Allergic reactions (20 sources) Solar degeneration; Translations: [Other skin changes due to chronic exposure to nonionizing radiation] Onset: 09-30-2012 Resolved: 07-18-2016 09-30-2012 Episodic Deficiency and other anemia (20 sources) Microcytic anemia; Translations: [Iron deficiency anemia, unspecified] Onset: 03-10-2008 12-07-2020 Episodic Gastritis and duodenitis (20 sources) Acute gastritis; Translations: [Acute gastritis without bleeding] Onset: 03-10-2008 03-10-2008 Episodic Hemorrhoids (20 sources) Internal hemorrhoids; Translations: [Other hemorrhoids] Onset: 03-06-2012 03-06-2012 Episodic Mood disorders (1 source) Mood disorders Onset: 09-04-2021 09-04-2021 Neoplasms of unspecified nature or uncertain behavior (20 sources) 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, so stated; Translations: [Refractory anemia without ring sideroblasts, so stated] Onset: 12-07-2020 12-07-2020 Episodic Other and unspecified benign neoplasm (20 sources) Benign neoplasm of rectum and anal canal; Translations: [Benign neoplasm of rectum] Onset: 03-06-2012 03-06-2012 Episodic Other connective tissue disease (20 sources) Biceps tendinitis; Translations: [Bicipital tendinitis, right shoulder] Onset: 05-30-2016 05-30-2016 Episodic Other connective tissue disease (20 sources) Impingement syndrome of right shoulder region; Translations: [Impingement syndrome of right shoulder] Onset: 08-15-2016 08-15-2016 Episodic Other connective tissue disease (20 sources) Bicipital tendinitis, right shoulder; Translations: [Bicipital tenosynovitis] Onset: 05-30-2016 05-30-2016 Episodic Other connective tissue disease (20 sources) Muscle weakness; Translations: [Muscle weakness (generalized)] Onset: 01-29-2024 Resolved: 05-12-2024 01-29-2024 Episodic Other connective tissue disease (1 source) Muscle weakness (generalized); Translations: [Weakness of trunk musculature] Onset: 01-29-2024 Episodic Other inflammatory condition of skin (20 sources) Seborrheic dermatitis; Translations: [Other seborrheic dermatitis] Onset: 11-27-2012 11-27-2012 Episodic Other non-traumatic joint disorders (20 sources) Chronic pain of right upper limb; Translations: [Pain in right shoulder] Onset: 10-09-2016 10-09-2016 Episodic Other non-traumatic joint disorders (20 sources) Hip pain; Translations: [Pain in left hip] Onset: 01-29-2024 Resolved: 05-12-2024 12-24-2023 Episodic Other non-traumatic joint disorders (2 sources) Pain in left hip; Translations: [Left hip pain] Onset: 12-24-2023 Episodic Other non-traumatic joint disorders (1 source) Pain in right hip; Translations: [Right hip pain] Onset: 02-23-2024 Episodic Other screening for suspected conditions (not mental disorders or infectious disease) (20 sources) Raised prostate specific antigen; Translations: [Elevated prostate specific antigen [PSA]] Onset: 01-03-2017 01-03-2017 Episodic Other skin disorders (20 sources) Actinic keratosis; Translations: [Actinic keratosis] Onset: 11-29-2005 12-28-2012 Episodic Other skin disorders (20 sources) Solar lentigo; Translations: [Other melanin hyperpigmentation] Onset: 09-30-2012 09-30-2012 Episodic Other skin disorders (20 sources) Disorder of pigmentation; Translations: [Disorder of pigmentation, unspecified] Onset: 09-30-2012 Resolved: 07-18-2016 07-18-2016 Episodic Other skin disorders (20 sources) Scar; Translations: [Scar conditions and fibrosis of skin] Onset: 09-30-2012 Resolved: 10-09-2016 10-09-2016 Episodic Other skin disorders (20 sources) Changes in skin texture; Translations: [Other skin changes] Onset: 11-27-2012 Resolved: 07-18-2016 07-18-2016 Episodic Other skin disorders (20 sources) Asteatosis cutis; Translations: [Xerosis cutis] Onset: 06-24-2013 Resolved: 07-18-2016 07-18-2016 Episodic Residual codes; unclassified (20 sources) Family history of prostate cancer; Translations: [Family history of malignant neoplasm of prostate] Onset: 02-13-2017 02-13-2017 Episodic Residual codes; unclassified (20 sources) Family history of cancer of colon; Translations: [Family history of malignant neoplasm of digestive organs] Onset: 10-29-2011 Resolved: 10-09-2016 Episodic Residual codes; unclassified (20 sources) Family history of malignant neoplasm of gastrointestinal tract; Translations: [Family history of malignant neoplasm of digestive organs] Onset: 03-06-2012 Resolved: 10-09-2016 10-09-2016 Episodic Screening and history of mental health and substance abuse codes (2 sources) Patient encounter status; Translations: [Encounter for screening for depression] Onset: 03-10-2024 03-10-2024 Episodic Spondylosis; intervertebral disc disorders; other back problems (20 sources) Spinal stenosis of lumbar region; Translations: [Spinal stenosis, lumbar region without neurogenic claudication] Onset: 04-20-2013 Resolved: 05-12-2024 10-09-2016 Episodic Syncope (20 sources) Vasovagal syncope; Translations: [Syncope and collapse] Onset: 10-09-2016 10-09-2016 Episodic Unclassified (1 source) Benign prostatic hyperplasia with lower urinary tract symptoms Onset: 02-14-2017 Results Test Name Value Interpretation Reference Range Facility Basic metabolic 2000 panelon 09-08-2024 Anion gap [Moles/Vol] 11 mmol/L Normal 8-15 [facility] Comment on above: Order Comment: Speci men Type: BLOOD SPECIMENOrdering Facility: [facility] Address: [address] [place] [address] Performed By: #### 2 4321-2 ####[facility] [id number] [place] [address] [place] Calcium [Mass/Vol] 8.8 mg/dL Normal 8.5-10.2 [facility] Comment on above: Order Comment: Speci men Type: BLOOD SPECIMENOrdering Facility: [facility] Address: [address] [place] [address] Performed By: #### 2 4321-2 ####[facility] [id number] [place] [address] [place] Chloride [Moles/Vol] 105 mmol/L Normal 98-107 [facility] Comment on above: Order Comment: Speci men Type: BLOOD SPECIMENOrdering Facility: [facility] Address: [address] [place] [address] Performed By: #### 2 4321-2 ####[facility] [id number] [place] [address] [place] CO2 [Moles/Vol] 22 mmol/L Normal 22-30 [facility] Comment on above: Order Comment: Speci men Type: BLOOD SPECIMENOrdering Facility: [facility] Address: [address] [place] [address] Performed By: #### 2 4321-2 ####[facility] [id number] [place] [address] [place] Creatinine [Mass/Vol] 0.99 mg/dL Normal 0.73-1.22 [facility] Comment on above: Order Comment: Speci men Type: BLOOD SPECIMENOrdering Facility: [facility] Address: [address] [place] [address] Performed By: #### 2 4321-2 ####[facility] [id number] [place] [address] [place] Creatinine and Glomerular filtration rate.predicted panel (S/P/Bld) 81 mL/min/1.73m??? Normal >=60 [facility] Comment on above: Order Comment: Bassam hong Type: BLOOD SPECIMENOrdering Facility: [facility] Address: [address] [place] [address] Result Comment: Beth mated Glomerular Filtration Rate (eGFR) is calculated using the 2020 CKD-EPI creatinine equation. This equation utilizes serum creatinine, sex, and age as parameters. The creatinine assay has traceable calibration to isotope dilution-mass spectrometry. Refer to KDIGO guidelines for clinical interpretation. In patients with unstable renal function, e.g. those with acute kidney injury, the eGFR may not accurately reflect actual GFR. Performed By: #### 2 4321-2 ####[facility] [id number] [place] [address] [place] Glucose [Mass/Vol] 93 mg/dL Normal 74-99 [facility] Comment on above: Order Comment: Bassam hong Type: BLOOD SPECIMENOrdering Facility: [facility] Address: [address] [place] [address] Result Comment: The [place] Diabetes Association (ADA) provides guidance for cutoff values for fasting glucose and random glucose. The ADA defines fasting as no caloric intake for at least 8 hours. Fasting plasma glucose results between 100 to 125 mg/dL indicate increased risk for diabetes (prediabetes).Fasting plasma glucose results greater than or equal to 126 mg/dL meet the criteria for diagnosis of diabetes. In the absence of unequivocal hyperglycemia, results should be confirmed by repeat testing. In a patient with classic symptoms of hyperglycemia or hyperglycemic crisis, random plasma glucose results greater than or equal to 200 mg/dL meet the criteria for diagnosis of diabetes.Reference: Standards of Medical Care in Diabetes 2016, [place] [employer]. Diabetes Care. 2016.39(Suppl 1). Performed By: #### 2 4321-2 ####[facility] MILLCAESARWNCLIA [id number] [place] [address] [place] Potassium [Moles/Vol] 3.9 mmol/L Normal 3.7-5.1 [facility] Comment on above: Order Comment: Speci men Type: BLOOD SPECIMENOrdering Facility: [facility] Address: [address] [place] [address] Performed By: #### 2 4321-2 ####[facility]PITALANGELICALIA [id number] [place] [address] [place] Sodium [Moles/Vol] 138 mmol/L Normal 136-144 [facility] Comment on above: Order Comment: Speci men Type: BLOOD SPECIMENOrdering Facility: [facility] Address: [address] [place] [address] Performed By: #### 2 4321-2 ####[facility]OSPITALShireen [id number] [place] [address] [place] Urea nitrogen [Mass/Vol] 23 mg/dL Normal 9-24 [facility] Comment on above: Order Comment: Speci men Type: BLOOD SPECIMENOrdering Facility: [facility] Address: [address] [place] [address] Performed By: #### 2 4321-2 ####[facility]OSPITALCINDY [id number] [place] [address] [place] CBC W Auto Differential pane l (Bld)on 09-08-2024 Basophils (Bld) [#/Vol] 10*3/uL Normal <0.11 [facility] Comment on above: Order Comment: Speci men Type: BLOOD SPECIMENOrdering Facility: [facility] Address: [address] [place] [address] Performed By: #### 5 7021-8 ####[facility] HOSPITALANGELICALIShireen [id number] [place] [address] [place] Basophils/100 WBC (Bld) 0.2 % Normal [facility] Comment on above: Order Comment: Speci men Type: BLOOD SPECIMENOrdering Facility: [facility] Address: [address] [place] [address] Performed By: #### 5 7021-8 ####[facility] [id number] [place] [address] [place] Differential cell count method Nom (Bld) Auto Normal [facility] Comment on above: Order Comment: Speci men Type: BLOOD SPECIMENOrdering Facility: [facility] Address: [address] [place] [address] Performed By: #### 5 7021-8 ####[facility] [id number] [place] [address] [place] Eosinophils (Bld) [#/Vol] 0.24 10*3/uL Normal <0.46 [facility] Comment on above: Order Comment: Speci men Type: BLOOD SPECIMENOrdering Facility: [facility] Address: [address] [place] [address] Performed By: #### 5 7021-8 ####[facility] HOSPITALA [id number] [place] [address] [place] Eosinophils/100 WBC (Bld) 3.7 % Normal [facility] Comment on above: Order Comment: Speci men Type: BLOOD SPECIMENOrdering Facility: [facility] Address: [address] [place] [address] Performed By: #### 5 7021-8 ####[facility] HOSPITALNCLIA [id number] [place] [address] [place] Erythrocyte distribution width (RBC) [Ratio] 21.0 % High 11.5-15.0 [facility] Comment on above: Order Comment: Speci men Type: BLOOD SPECIMENOrdering Facility: [facility] Address: [address] [place] [address] Performed By: #### 5 7021-8 ####[facility] PITOLIA [id number] [place] [address] [place] Hematocrit (Bld) [Volume fraction] 27.9 % Low 39.0-51.0 [facility] Comment on above: Order Comment: Speci men Type: BLOOD SPECIMENOrdering Facility: [facility] Address: [address] [place] [address] Performed By: #### 5 7021-8 ####[facility] HOSPITALNCLIA [id number] [place] [address] [place] Hemoglobin (Bld) [Mass/Vol] 8.5 g/dL Low 13.0-17.0 [facility] Comment on above: Order Comment: Speci men Type: BLOOD SPECIMENOrdering Facility: [facility] Address: [address] [place] [address] Performed By: #### 5 7021-8 ####[facility] HOSPITALNCLIA [id number] [place] [address] [place] Immature granulocytes (Bld) [#/Vol] 0.07 10*3/uL Normal <0.10 [facility] Comment on above: Order Comment: Speci men Type: BLOOD SPECIMENOrdering Facility: [facility] Address: [address] [place] [address] Performed By: #### 5 7021-8 ####[facility] BIENVENIDOGRASS VALLEYNCLIA [id number] [place] [address] [place] Immature granulocytes/100 WBC (Bld) 1.1 % Normal [facility] Comment on above: Order Comment: Speci men Type: BLOOD SPECIMENOrdering Facility: [facility] Address: [address] [place] [address] Performed By: #### 5 7021-8 ####[facility] HOSPITALNCLIA [id number] [place] [address] [place] Lymphocytes (Bld) [#/Vol] 2.43 10*3/uL Normal 1.00-4.00 [facility] Comment on above: Order Comment: Speci men Type: BLOOD SPECIMENOrdering Facility: [facility] Address: [address] [place] [address] Performed By: #### 5 7021-8 ####[facility] [id number] [place] [address] [place] Lymphocytes/100 WBC (Bld) 37.3 % Normal [facility] Comment on above: Order Comment: Speci men Type: BLOOD SPECIMENOrdering Facility: [facility] Address: [address] [place] [address] Performed By: #### 5 7021-8 ####[facility] [id number] [place] [address] [place] MCH (RBC) [Entitic mass] 24.6 pg Low 26.0-34.0 [facility] Comment on above: Order Comment: Speci men Type: BLOOD SPECIMENOrdering Facility: [facility] Address: [address] [place] [address] Performed By: #### 5 7021-8 ####[facility] [id number] [place] [address] [place] MCHC (RBC) [Mass/Vol] 30.5 g/dL Normal 30.5-36.0 [facility] Comment on above: Order Comment: Speci men Type: BLOOD SPECIMENOrdering Facility: [facility] Address: [address] [place] [address] Performed By: #### 5 7021-8 ####[facility] HOSPITALNCLI [id number] [place] [address] [place] MCV (RBC) [Entitic vol] 80.6 fL Normal 80.0-100.0 [facility] Comment on above: Order Comment: Speci men Type: BLOOD SPECIMENOrdering Facility: [facility] Address: [address] [place] [address] Performed By: #### 5 7021-8 ####[facility] [id number] [place] [address] [place] Monocytes (Bld) [#/Vol] 0.46 10*3/uL Normal <0.87 [facility] Comment on above: Order Comment: Speci men Type: BLOOD SPECIMENOrdering Facility: [facility] Address: [address] [place] [address] Performed By: #### 5 7021-8 ####[facility] [id number] [place] [address] [place] Monocytes/100 WBC (Bld) 7.1 % Normal [facility] Comment on above: Order Comment: Speci men Type: BLOOD SPECIMENOrdering Facility: [facility] Address: [address] [place] [address] Performed By: #### 5 7021-8 ####[facility] [id number] [place] [address] [place] Neutrophils (Bld) [#/Vol] 3.31 10*3/uL Normal 1.45-7.50 [facility] Comment on above: Order Comment: Speci men Type: BLOOD SPECIMENOrdering Facility: [facility] Address: [address] [place] [address] Performed By: #### 5 7021-8 ####[facility] [id number] [place] [address] [place] Neutrophils/100 WBC (Bld) 50.6 % Normal [facility] Comment on above: Order Comment: Speci men Type: BLOOD SPECIMENOrdering Facility: [facility] Address: [address] [place] [address] Performed By: #### 5 7021-8 ####[facility] BIENVENIDOMariannaNCLIA [id number] [place] [address] [place] Nucleated RBC (Bld) [#/Vol] 10*3/uL Normal <0.01 [facility] Comment on above: Order Comment: Speci men Type: BLOOD SPECIMENOrdering Facility: [facility] Address: [address] [place] [address] Performed By: #### 5 7021-8 ####[facility]PITALNCLIA [id number] [place] [address] [place] Nucleated RBC/100 WBC (Bld) [Ratio] 0.0 /100 WBC Normal [facility] Comment on above: Order Comment: Speci men Type: BLOOD SPECIMENOrdering Facility: [facility] Address: [address] [place] [address] Performed By: #### 5 7021-8 ####[facility]PITALNCLIA [id number] [place] [address] [place] Platelet mean volume (Bld) [Entitic vol] 8.4 fL Low 9.0-12.7 [facility] Comment on above: Order Comment: Speci men Type: BLOOD SPECIMENOrdering Facility: [facility] Address: [address] [place] [address] Performed By: #### 5 7021-8 ####[facility]PITALNCLIA [id number] [place] [address] [place] Platelets (Bld) [#/Vol] 196 10*3/uL Normal 150-400 [facility] Comment on above: Order Comment: Speci men Type: BLOOD SPECIMENOrdering Facility: [facility] Address: [address] [place] [address] Performed By: #### 5 7021-8 ####[facility] [id number] [place] [address] [place] RBC (Bld) [#/Vol] 3.46 10*6/uL Low 4.20-6.00 [facility] Comment on above: Order Comment: Speci men Type: BLOOD SPECIMENOrdering Facility: [facility] Address: [address] [place] [address] Performed By: #### 5 7021-8 ####[facility] [id number] [place] [address] [place] WBC (Bld) [#/Vol] 6.52 10*3/uL Normal 3.70-11.00 [facility] Comment on above: Order Comment: Speci men Type: BLOOD SPECIMENOrdering Facility: [facility] Address: [address] [place] [address] Performed By: #### 5 7021-8 ####[facility] [id number] [place] [address] [place] CNOVSPon 09-08-2024 CNOVSP Normal [facility] CNNURSEon 08-27-2024 CNNURSE Normal [facility] FERRITINon 08-12-2024 Ferritin [Mass/Vol] 835 ng/mL High 30.3 - 5 65.7 ng/mL [facility] Ferritin [Mass/Vol]on 2024 Interpretation and review of laboratory results Abnormal [facility] 25(OH)D3 SerPl-mCncon 2024 25-hydroxyvitamin D3 [Mass/Vol] 19.1 ng/mL Low 31.0-80.0 [facility] Comment on above: Order Comment: Speci men Type: BLOOD SPECIMENOrdering Facility: [facility] Address: [address] [place], [place] [id number] Result Comment: Clas sification of 25 [place] Vitamin D status:Deficiency/Insufficiency: < or = 30 ng/ml.Sufficiency/Optimal Levels: 31-80 ng/mLToxicity: > 100 ng/mL.Test performed by chemiluminescent immunoassay. Performed By: #### 1 989-3 ####[facility] LABCLIA [id number] [place] [address] [place] 25-hydroxyvitamin D3 [Mass/V ol]on 08-11-2024 Interpretation and review of laboratory results Abnormal [facility] The reference range interval was based on an analysis of samples from healthy adults and may not pertain to children from 0-18 years old. [facility] Basic metabolic 2000 panelon 08-11-2024 Anion gap [Moles/Vol] 8 mmol/L Normal 8-15 [facility] Comment on above: Order Comment: Speci men Type: BLOOD SPECIMENOrdering Facility: [facility] Address: [address] [place] [address] Performed By: #### 2 4321-2 ####[facility] [id number] [place] [address] [place] Calcium [Mass/Vol] 9.4 mg/dL Normal 8.5-10.2 [facility] Comment on above: Order Comment: Speci men Type: BLOOD SPECIMENOrdering Facility: [facility] Address: [address] [place], [place] [address] Performed By: #### 2 4321-2 ####[facility] [id number] [place] [address] [place] Chloride [Moles/Vol] 101 mmol/L Normal 98-107 [facility] Comment on above: Order Comment: Speci men Type: BLOOD SPECIMENOrdering Facility: [facility] Address: [address] [place] [address] Performed By: #### 2 4321-2 ####[facility]ITALNCLIA [id number] [place] [address] [place] CO2 [Moles/Vol] 28 mmol/L Normal 22-30 [facility] Comment on above: Order Comment: Speci men Type: BLOOD SPECIMENOrdering Facility: [facility] Address: [address] [place], [place] [address] Performed By: #### 2 4321-2 ####[facility] [id number] [address] [place] Creatinine [Mass/Vol] 1.05 mg/dL Normal 0.73-1.22 [facility] Comment on above: Order Comment: Speci men Type: BLOOD SPECIMENOrdering Facility: [facility] Address: [address] [place] [address] Performed By: #### 2 4321-2 ####[facility] HOSPITALNCLI [id number] [place] [address] [place] Creatinine and Glomerular filtration rate.predicted panel (S/P/Bld) 76 mL/min/1.73m??? Normal >=60 [facility] Comment on above: Order Comment: Speci men Type: BLOOD SPECIMENOrdering Facility: [facility] Address: [address] [place] [address] Result Comment: Beth mated Glomerular Filtration Rate (eGFR) is calculated using the 2020 CKD-EPI creatinine equation. This equation utilizes serum creatinine, sex, and age as parameters. The creatinine assay has traceable calibration to isotope dilution-mass spectrometry. Refer to KDIGO guidelines for clinical interpretation. In patients with unstable renal function, e.g. those with acute kidney injury, the eGFR may not accurately reflect actual GFR. Performed By: #### 2 4321-2 ####[facility]ITALNCLIA [id number] [place] [address] [place] Glucose [Mass/Vol] 97 mg/dL Normal 74-99 [facility] Comment on above: Order Comment: Speci men Type: BLOOD SPECIMENOrdering Facility: [facility] Address: [address] [place] [address] Result Comment: The [place] Diabetes Association (ADA) provides guidance for cutoff values for fasting glucose and random glucose. The ADA defines fasting as no caloric intake for at least 8 hours. Fasting plasma glucose results between 100 to 125 mg/dL indicate increased risk for diabetes (prediabetes).Fasting plasma glucose results greater than or equal to 126 mg/dL meet the criteria for diagnosis of diabetes. In the absence of unequivocal hyperglycemia, results should be confirmed by repeat testing. In a patient with classic symptoms of hyperglycemia or hyperglycemic crisis, random plasma glucose results greater than or equal to 200 mg/dL meet the criteria for diagnosis of diabetes.Reference: Standards of Medical Care in Diabetes 2016, [place] Diabetes Association. Diabetes Care. 2016.39(Suppl 1). Performed By: #### 2 4321-2 ####[facility] MILLTOWNCLIA [id number] [place] [address] [place] Potassium [Moles/Vol] 4.1 mmol/L Normal 3.7-5.1 [facility] Comment on above: Order Comment: Bassam hong Type: BLOOD SPECIMENOrdering Facility: [facility] Address: [address] [place] [address] Performed By: #### 2 4321-2 ####[facility] HOSPITALWALLIA [id number] [place] [address] [place] Sodium [Moles/Vol] 137 mmol/L Normal 136-144 [facility] Comment on above: Order Comment: Bassam hong Type: BLOOD SPECIMENOrdering Facility: [facility] Address: [address] [place] [address] Performed By: #### 2 4321-2 ####[facility] MILLWNCLIA [id number] [place] [address] [place] Urea nitrogen [Mass/Vol] 21 mg/dL Normal 9-24 [facility] Comment on above: Order Comment: Bassam hong Type: BLOOD SPECIMENOrdering Facility: [facility] Address: [address] [place] [address] Performed By: #### 2 4321-2 ####[facility] H[facility]ITALWNCLIA [id number] [place] [address] [place] CBC W Auto Differential pane l (Bld)on 08-11-2024 Basophils (Bld) [#/Vol] 10*3/uL Normal <0.11 [facility] Comment on above: Order Comment: Speci men Type: BLOOD SPECIMENOrdering Facility: [facility] Address: [address] [place] [address] Performed By: #### 5 7021-8 ####[facility] MILLWALLIA [id number] [place] [address] [place] Basophils/100 WBC (Bld) 0.2 % Normal [facility] Comment on above: Order Comment: Speci men Type: BLOOD SPECIMENOrdering Facility: [facility] Address: [address] [place] [address] Performed By: #### 5 7021-8 ####[facility]ITALA [id number] [place] [address] [place] [facility] Differential cell count method Nom (Bld) Auto Normal [facility] Comment on above: Order Comment: Speci men Type: BLOOD SPECIMENOrdering Facility: [facility] Address: [address] [place] [address] Performed By: #### 5 7021-8 ####[facility]OSPITALA [id number] [place] [address] [place] Eosinophils (Bld) [#/Vol] 0.23 10*3/uL Normal <0.46 [facility] Comment on above: Order Comment: Speci men Type: BLOOD SPECIMENOrdering Facility: [facility] Address: [address] [place] [address] Performed By: #### 5 7021-8 ####[facility] HOSPITALLIA [id number] [place] [address] [place] Eosinophils/100 WBC (Bld) 4.7 % Normal [facility] Comment on above: Order Comment: Speci men Type: BLOOD SPECIMENOrdering Facility: [facility] Address: [address] [place] [address] Performed By: #### 5 7021-8 ####[facility] BIENVENIDOGRASS VALLEYNCMJ [id number] [place] [address] [place] Erythrocyte distribution width (RBC) [Ratio] 20.4 % High 11.5-15.0 [facility] Comment on above: Order Comment: Speci men Type: BLOOD SPECIMENOrdering Facility: [facility] Address: [address] [place] [address] Performed By: #### 5 7021-8 ####[facility] [id number] [place] [address] [place] Hematocrit (Bld) [Volume fraction] 30.9 % Low 39.0-51.0 [facility] Comment on above: Order Comment: Speci men Type: BLOOD SPECIMENOrdering Facility: [facility] Address: [address] [place] [address] Performed By: #### 5 7021-8 ####[facility] HOSPITALNCLIA [id number] [place] [address] [place] Hemoglobin (Bld) [Mass/Vol] 9.5 g/dL Low 13.0-17.0 [facility] Comment on above: Order Comment: Speci men Type: BLOOD SPECIMENOrdering Facility: [facility] Address: [address] [place] [address] Performed By: #### 5 7021-8 ####[facility] H[facility]PITALNCLIA [id number] [place] [address] [place] Immature granulocytes (Bld) [#/Vol] 10*3/uL Normal <0.10 [facility] Comment on above: Order Comment: Speci men Type: BLOOD SPECIMENOrdering Facility: [facility] Address: [address] [place] [address] Performed By: #### 5 7021-8 ####[facility] HOSPITALLIA [id number] [place] [address] [place] Immature granulocytes/100 WBC (Bld) 0.2 % Normal [facility] Comment on above: Order Comment: Speci men Type: BLOOD SPECIMENOrdering Facility: [facility] Address: [address] [place] [address] Performed By: #### 5 7021-8 ####[facility] [id number] [place] [address] [place] Lymphocytes (Bld) [#/Vol] 2.26 10*3/uL Normal 1.00-4.00 [facility] Comment on above: Order Comment: Speci men Type: BLOOD SPECIMENOrdering Facility: [facility] Address: [address] [place] [address] Performed By: #### 5 7021-8 ####[facility] [id number] [place] [address] [place] Lymphocytes/100 WBC (Bld) 46.3 % Normal [facility] Comment on above: Order Comment: Speci men Type: BLOOD SPECIMENOrdering Facility: [facility] Address: [address] [place] [address] Performed By: #### 5 7021-8 ####[facility] [id number] [place] [address] [place] MCH (RBC) [Entitic mass] 24.2 pg Low 26.0-34.0 [facility] Comment on above: Order Comment: Speci men Type: BLOOD SPECIMENOrdering Facility: [facility] Address: [address] [place] [address] Performed By: #### 5 7021-8 ####[facility] HOSPITALNCLI [id number] [place] [address] [place] MCHC (RBC) [Mass/Vol] 30.7 g/dL Normal 30.5-36.0 [facility] Comment on above: Order Comment: Speci men Type: BLOOD SPECIMENOrdering Facility: [facility] Address: [address] [place] [address] Performed By: #### 5 7021-8 ####[facility] [id number] [place] [address] [place] MCV (RBC) [Entitic vol] 78.8 fL Low 80.0-100.0 [facility] Comment on above: Order Comment: Speci men Type: BLOOD SPECIMENOrdering Facility: [facility] Address: [address] [place] [address] Performed By: #### 5 7021-8 ####[facility]ITAL[facility] [id number] [place] [address] [place] Monocytes (Bld) [#/Vol] 0.36 10*3/uL Normal <0.87 [facility] Comment on above: Order Comment: Speci men Type: BLOOD SPECIMENOrdering Facility: [facility] Address: [address] [place] [address] Performed By: #### 5 7021-8 ####[facility] [id number] [place] [address] [place] Monocytes/100 WBC (Bld) 7.4 % Normal [facility] Comment on above: Order Comment: Speci men Type: BLOOD SPECIMENOrdering Facility: [facility] Address: [address] [place] [address] Performed By: #### 5 7021-8 ####[facility] [id number] [place] [address] [place] Neutrophils (Bld) [#/Vol] 2.01 10*3/uL Normal 1.45-7.50 [facility] Comment on above: Order Comment: Speci men Type: BLOOD SPECIMENOrdering Facility: [facility] Address: [address] [place] [address] Performed By: #### 5 7021-8 ####[facility] BIENVENIDOGRASS VALLEYHEAVENA [id number] [place] [address] [place] Neutrophils/100 WBC (Bld) 41.2 % Normal [facility] Comment on above: Order Comment: Speci men Type: BLOOD SPECIMENOrdering Facility: [facility] Address: [address] [place] [address] Performed By: #### 5 7021-8 ####[facility] [id number] [place] [address] [place] Nucleated RBC (Bld) [#/Vol] 10*3/uL Normal <0.01 [facility] Comment on above: Order Comment: Speci men Type: BLOOD SPECIMENOrdering Facility: [facility] Address: [address] [place] [address] Performed By: #### 5 7021-8 ####[facility] [id number] [place] [address] [place] Nucleated RBC/100 WBC (Bld) [Ratio] 0.0 /100 WBC Normal [facility] Comment on above: Order Comment: Speci men Type: BLOOD SPECIMENOrdering Facility: [facility] Address: [address] [place] [address] Performed By: #### 5 7021-8 ####[facility] HOSPITALLIA [id number] [place] [address] [place] Platelet mean volume (Bld) [Entitic vol] 8.6 fL Low 9.0-12.7 [facility] Comment on above: Order Comment: Speci men Type: BLOOD SPECIMENOrdering Facility: [facility] Address: [address] [place] [address] Performed By: #### 5 7021-8 ####[facility] HOSPITALWNCLIA [id number] [place] [address] [place] Platelets (Bld) [#/Vol] 162 10*3/uL Normal 150-400 [facility] Comment on above: Order Comment: Speci men Type: BLOOD SPECIMENOrdering Facility: [facility] Address: [address] [place] [address] Performed By: #### 5 7021-8 ####[facility] HOSPITALANGELICALIA [id number] [place] [address] [place] RBC (Bld) [#/Vol] 3.92 10*6/uL Low 4.20-6.00 [facility] Comment on above: Order Comment: Speci men Type: BLOOD SPECIMENOrdering Facility: [facility] Address: [address] [place] [address] Performed By: #### 5 7021-8 ####[facility]OSPITALA [id number] [place] [address] [place] WBC (Bld) [#/Vol] 4.88 10*3/uL Normal 3.70-11.00 [facility] Comment on above: Order Comment: Speci men Type: BLOOD SPECIMENOrdering Facility: [facility] Address: [address] [place] [address] Performed By: #### 5 7021-8 ####[facility]ITALNCLIA [id number] [place] [address] [place] CNOVSPon 08-11-2024 CNOVSP Normal [facility] Ferritin SerPl-mCncon 2024 Ferritin [Mass/Vol] 835.0 ng/mL High 30.3-565.7 [facility] Comment on above: Order Comment: Speci men Type: BLOOD SPECIMENOrdering Facility: [facility] Address: [address] [place] [address] Performed By: #### 2 276-4, 62897-3 ####[facility] LABCLIA [id number] [place] [id number] [place] Iron and Iron binding capaci ty panelon 08-11-2024 Interpretation and review of laboratory results Abnormal [facility] Iron [Mass/Vol] 190 ug/dL High 41 - 186 ug/dL [facility] Iron binding capacity [Mass/Vol] 259 ug/dL 232 - 386 ug/dL [facility] Iron/TIBC [Molar ratio] 73.4 % High 15.0 - 57.0 % [facility] Iron [Mass/Vol] 190 ug/dL High 41-186 [facility] Comment on above: Order Comment: Speci men Type: BLOOD SPECIMENOrdering Facility: [facility] Address: [address] [place] [address] Performed By: #### 2 276-4, 53511-6 ####[facility] LABCLIA [id number] [place] [address] [place] Iron binding capacity [Mass/Vol] 259 ug/dL Normal 232-386 [facility] Comment on above: Order Comment: Speci men Type: BLOOD SPECIMENOrdering Facility: [facility] Address: [address] [place] [address] Performed By: #### 2 276-4, 82789-9 ####[facility] LABCLIA [id number] [place] [address] [place] Iron/TIBC [Molar ratio] 73.4 % High 15.0-57.0 [facility] Comment on above: Order Comment: Speci men Type: BLOOD SPECIMENOrdering Facility: [facility] Address: [address] [place] [address] Performed By: #### 2 276-4, 99862-4 ####[facility] LABCLIA [id number] [place] [id number] [place] PSA SerPl-ncon 08-11-2024 Prostate specific Ag [Mass/Vol] ng/mL Normal <2.60 [facility] Comment on above: Order Comment: Speci men Type: BLOOD SPECIMENOrdering Facility: [facility] Address: [address] [place] [address] Result Comment: Erika l PSA test methodology used is the Electrochemiluminescence Immunoassay by [employer]. Total PSA values by differing methodologies cannot be interchanged. Performed By: #### 2 857-1 ####[facility] LABCLIA [id number] [place] [address] [place] VITAMIN D 25 HYDROXYon 08-11 25-hydroxyvitamin D3 [Mass/Vol] 19.1 ng/mL Low 31.0 - 80.0 ng/mL [facility] Comment on above: Classification of 25 [place] Vitamin D status: Deficiency/Insufficiency: < or = 30 ng/ml. Sufficiency/Optimal Levels: 31-80 ng/mL Toxicity: > 100 ng/mL. Test performed by chemiluminescent immunoassay. ECG COMPLETEon 08-10-2024 Atrial Rate 95 BPM [facility] Calculated P [place] 61 degrees [facility] Calculated R [place] -32 degrees [facility] Calculated T [place] 62 degrees [facility] P-R Interval 136 ms [facility] QRS Duration 76 ms [facility] QT Interval 360 ms [facility] QTC Calculation (Bazett) 452 ms [facility] Ventricular Rate [address] [facility] NORMAL SINUS RHYTHM ANTERIOR T WAVE ABNORMALITY ABNORMAL ECG Confirmed by MD HASKINS QARAB ([id number]) on 08/10/2024 11:55:46 AM HEART [facility] VASCULAR [place] NAME : ROSA CASTILLO PID : [id number] : 1955 Gender : Male Race : ORD : Procedure Date : Aug 09 2024 15:29:24 Edit Date : Aug 10 2024 11:55:48 Diagnosis: NORMAL SINUS RHYTHM ANTERIOR T WAVE ABNORMALITY ABNORMAL ECG Confirmed by MD HASKINS QARAB ([id number]) on 08/10/2024 11:55:46 AM Test Reason : Location : 211 : [facility] Overread By : MD HASKINS QARAB Edited By : MD HASKINS QARAB Referred By : DORCAS CHAMPAGNE Acquired by : TANJA NINO, HEART AND VASCULAR [facility] CNOVon 08-09-2024 CNOV Normal [facility] [id number] 08-09-2024 ECG01 Normal [facility] Basic metabolic 2000 panelon 07-14-2024 Anion gap [Moles/Vol] 9 mmol/L Normal 8-15 [facility] Comment on above: Order Comment: Speci men Type: BLOOD SPECIMENOrdering Facility: [facility] Address: [address] [place] [address] Performed By: #### 2 4321-2 ####[facility] MILLTOWNCLIA [id number] [place] [address] [place] Calcium [Mass/Vol] 9.3 mg/dL Normal 8.5-10.2 [facility] Comment on above: Order Comment: Speci men Type: BLOOD SPECIMENOrdering Facility: [facility] Address: [address] [place] [address] Performed By: #### 2 4321-2 ####[facility] HOSPITALWNCLIA [id number] [place] [address] [place] Chloride [Moles/Vol] 102 mmol/L Normal 98-107 [facility] Comment on above: Order Comment: Speci men Type: BLOOD SPECIMENOrdering Facility: [facility] Address: [address] [place] [address] Performed By: #### 2 4321-2 ####[facility] MILLTOWNCLIA [id number] [place] [address] [place] CO2 [Moles/Vol] 28 mmol/L Normal 22-30 [facility] Comment on above: Order Comment: Speci men Type: BLOOD SPECIMENOrdering Facility: [facility] Address: [address] [place] [address] Performed By: #### 2 4321-2 ####[facility] MILLGRASS VALLEYNCLIA [id number] [place] [address] [place] Creatinine [Mass/Vol] 1.08 mg/dL Normal 0.73-1.22 [facility] Comment on above: Order Comment: Bassam hong Type: BLOOD SPECIMENOrdering Facility: [facility] Address: [address] [place] [address] Performed By: #### 2 4321-2 ####[facility] [id number] [place] [address] [place] Creatinine and Glomerular filtration rate.predicted panel (S/P/Bld) 73 mL/min/1.73m??? Normal >=60 [facility] Comment on above: Order Comment: Bassam hong Type: BLOOD SPECIMENOrdering Facility: [facility] Address: [address] [place] [address] Result Comment: Beth mated Glomerular Filtration Rate (eGFR) is calculated using the 2020 CKD-EPI creatinine equation. This equation utilizes serum creatinine, sex, and age as parameters. The creatinine assay has traceable calibration to isotope dilution-mass spectrometry. Refer to KDIGO guidelines for clinical interpretation. In patients with unstable renal function, e.g. those with acute kidney injury, the eGFR may not accurately reflect actual GFR. Performed By: #### 2 4321-2 ####[facility] [id number] [place] [address] [place] Glucose [Mass/Vol] 99 mg/dL Normal 74-99 [facility] Comment on above: Order Comment: Bassam hong Type: BLOOD SPECIMENOrdering Facility: [facility] Address: [address] [place] [address] Result Comment: The [place] Diabetes Association (ADA) provides guidance for cutoff values for fasting glucose and random glucose. The ADA defines fasting as no caloric intake for at least 8 hours. Fasting plasma glucose results between 100 to 125 mg/dL indicate increased risk for diabetes (prediabetes).Fasting plasma glucose results greater than or equal to 126 mg/dL meet the criteria for diagnosis of diabetes. In the absence of unequivocal hyperglycemia, results should be confirmed by repeat testing. In a patient with classic symptoms of hyperglycemia or hyperglycemic crisis, random plasma glucose results greater than or equal to 200 mg/dL meet the criteria for diagnosis of diabetes.Reference: Standards of Medical Care in Diabetes 2016, [place] [employer]. Diabetes Care. 2016.39(Suppl 1). Performed By: #### 2 4321-2 ####[facility] BIENVENIDOMariannaANGELICAKATERINShireen [id number] [place] [address] [place] Potassium [Moles/Vol] 4.1 mmol/L Normal 3.7-5.1 [facility] Comment on above: Order Comment: Speci men Type: BLOOD SPECIMENOrdering Facility: [facility] Address: [address] [place] [address] Performed By: #### 2 4321-2 ####[facility] HOSPITALANGELICAShireen [id number] [place] [address] [place] Sodium [Moles/Vol] 139 mmol/L Normal 136-144 [facility] Comment on above: Order Comment: Speci men Type: BLOOD SPECIMENOrdering Facility: [facility] Address: [address] [place] [address] Performed By: #### 2 4321-2 ####[facility] HOSPITALShireen [id number] [place] [address] [place] Urea nitrogen [Mass/Vol] 22 mg/dL Normal 9-24 [facility] Comment on above: Order Comment: Speci men Type: BLOOD SPECIMENOrdering Facility: [facility] Address: [address] [place] [address] Performed By: #### 2 4321-2 ####[facility]OSPITALNCLIA [id number] [place] [address] [place] CBC W Auto Differential pane l (Bld)on 07-14-2024 Basophils (Bld) [#/Vol] 10*3/uL Normal <0.11 [facility] Comment on above: Order Comment: Speci men Type: BLOOD SPECIMENOrdering Facility: [facility] Address: [address] [place] [address] Performed By: #### 5 7021-8 ####[facility] MILLWNCLIA [id number] [place] [address] [place] Basophils/100 WBC (Bld) 0.4 % Normal [facility] Comment on above: Order Comment: Speci men Type: BLOOD SPECIMENOrdering Facility: [facility] Address: [address] [place] [address] Performed By: #### 5 7021-8 ####[facility] HOSPITALLIA [id number] [place] [address] [place] Differential cell count method Nom (Bld) Auto Normal [facility] Comment on above: Order Comment: Speci men Type: BLOOD SPECIMENOrdering Facility: [facility] Address: [address] [place] [address] Performed By: #### 5 7021-8 ####[facility]ITALLIA [id number] [place] [address] [place] Eosinophils (Bld) [#/Vol] 0.24 10*3/uL Normal <0.46 [facility] Comment on above: Order Comment: Speci men Type: BLOOD SPECIMENOrdering Facility: [facility] Address: [address] [place] [address] Performed By: #### 5 7021-8 ####[facility] [id number] [place] [address] [place] Eosinophils/100 WBC (Bld) 4.8 % Normal [facility] Comment on above: Order Comment: Speci men Type: BLOOD SPECIMENOrdering Facility: [facility] Address: [address] [place] [address] Performed By: #### 5 7021-8 ####[facility]PITALNCLIA [id number] [place] [address] [place] Erythrocyte distribution width (RBC) [Ratio] 20.7 % High 11.5-15.0 [facility] Comment on above: Order Comment: Speci men Type: BLOOD SPECIMENOrdering Facility: [facility] Address: [address] [place] [address] Performed By: #### 5 7021-8 ####[facility]ITALN[facility] [id number] [place] [address] [place] Hematocrit (Bld) [Volume fraction] 31.1 % Low 39.0-51.0 [facility] Comment on above: Order Comment: Speci men Type: BLOOD SPECIMENOrdering Facility: [facility] Address: [address] [place] [address] Performed By: #### 5 7021-8 ####[facility] [id number] [place] [address] [place] Hemoglobin (Bld) [Mass/Vol] 9.4 g/dL Low 13.0-17.0 [facility] Comment on above: Order Comment: Speci men Type: BLOOD SPECIMENOrdering Facility: [facility] Address: [address] [place] [address] Performed By: #### 5 7021-8 ####[facility] [id number] [place] [address] [place] Immature granulocytes (Bld) [#/Vol] 10*3/uL Normal <0.10 [facility] Comment on above: Order Comment: Speci men Type: BLOOD SPECIMENOrdering Facility: [facility] Address: [address] [place] [address] Performed By: #### 5 7021-8 ####[facility] [id number] [place] [address] [place] Immature granulocytes/100 WBC (Bld) 0.4 % Normal [facility] Comment on above: Order Comment: Speci men Type: BLOOD SPECIMENOrdering Facility: [facility] Address: [address] [place] [address] Performed By: #### 5 7021-8 ####[facility] [id number] [place] [address] [place] Lymphocytes (Bld) [#/Vol] 2.11 10*3/uL Normal 1.00-4.00 [facility] Comment on above: Order Comment: Speci men Type: BLOOD SPECIMENOrdering Facility: [facility] Address: [address] [place] [address] Performed By: #### 5 7021-8 ####[facility] [id number] [place] [address] [place] Lymphocytes/100 WBC (Bld) 41.9 % Normal [facility] Comment on above: Order Comment: Speci men Type: BLOOD SPECIMENOrdering Facility: [facility] Address: [address] [place] [address] Performed By: #### 5 7021-8 ####[facility] [id number] [place] [address] [place] MCH (RBC) [Entitic mass] 24.3 pg Low 26.0-34.0 [facility] Comment on above: Order Comment: Speci men Type: BLOOD SPECIMENOrdering Facility: [facility] Address: [address] [place] [address] Performed By: #### 5 7021-8 ####[facility] [id number] [place] [address] [place] MCHC (RBC) [Mass/Vol] 30.2 g/dL Low 30.5-36.0 [facility] Comment on above: Order Comment: Speci men Type: BLOOD SPECIMENOrdering Facility: [facility] Address: [address] [place] [address] Performed By: #### 5 7021-8 ####[facility] H[facility]PITALNCLIA [id number] [place] [address] [place] MCV (RBC) [Entitic vol] 80.4 fL Normal 80.0-100.0 [facility] Comment on above: Order Comment: Speci men Type: BLOOD SPECIMENOrdering Facility: [facility] Address: [address] [place] [address] Performed By: #### 5 7021-8 ####[facility] HOSPITALHEAVENA [id number] [place] [address] [place] Monocytes (Bld) [#/Vol] 0.36 10*3/uL Normal <0.87 [facility] Comment on above: Order Comment: Speci men Type: BLOOD SPECIMENOrdering Facility: [facility] Address: [address] [place] [address] Performed By: #### 5 7021-8 ####[facility]ITALA [id number] [place] [address] [place] Monocytes/100 WBC (Bld) 7.2 % Normal [facility] Comment on above: Order Comment: Speci men Type: BLOOD SPECIMENOrdering Facility: [facility] Address: [address] [place] [address] Performed By: #### 5 7021-8 ####[facility] [id number] [place] [address] [place] Neutrophils (Bld) [#/Vol] 2.28 10*3/uL Normal 1.45-7.50 [facility] Comment on above: Order Comment: Speci men Type: BLOOD SPECIMENOrdering Facility: [facility] Address: [address] [place] [address] Performed By: #### 5 7021-8 ####[facility]PITALNCLIA [id number] [place] [address] [place] Neutrophils/100 WBC (Bld) 45.3 % Normal [facility] Comment on above: Order Comment: Speci men Type: BLOOD SPECIMENOrdering Facility: [facility] Address: [address] [place] [address] Performed By: #### 5 7021-8 ####[facility] [id number] [place] [address] [place] Nucleated RBC (Bld) [#/Vol] 10*3/uL Normal <0.01 [facility] Comment on above: Order Comment: Speci men Type: BLOOD SPECIMENOrdering Facility: [facility] Address: [address] [place] [address] Performed By: #### 5 7021-8 ####[facility] [id number] [place] [address] [place] Nucleated RBC/100 WBC (Bld) [Ratio] 0.0 /100 WBC Normal [facility] Comment on above: Order Comment: Speci men Type: BLOOD SPECIMENOrdering Facility: [facility] Address: [address] [place] [address] Performed By: #### 5 7021-8 ####[facility] [id number] [place] [address] [place] Platelet mean volume (Bld) [Entitic vol] 8.4 fL Low 9.0-12.7 [facility] Comment on above: Order Comment: Speci men Type: BLOOD SPECIMENOrdering Facility: [facility] Address: [address] [place] [address] Performed By: #### 5 7021-8 ####[facility] [id number] [place] [address] [place] Platelets (Bld) [#/Vol] 171 10*3/uL Normal 150-400 [facility] Comment on above: Order Comment: Speci men Type: BLOOD SPECIMENOrdering Facility: [facility] Address: [address] [place] [address] Performed By: #### 5 7021-8 ####[facility] BIENVENIDOGRASS VALLEYHEAVENA [id number] [place] [address] [place] RBC (Bld) [#/Vol] 3.87 10*6/uL Low 4.20-6.00 [facility] Comment on above: Order Comment: Speci men Type: BLOOD SPECIMENOrdering Facility: [facility] Address: [address] [place] [address] Performed By: #### 5 7021-8 ####[facility] BIENVENIDOGRASS VALLEYNCLIA [id number] [place] [address] [place] WBC (Bld) [#/Vol] 5.03 10*3/uL Normal 3.70-11.00 [facility] Comment on above: Order Comment: Speci men Type: BLOOD SPECIMENOrdering Facility: [facility] Address: [address] [place] [address] Performed By: #### 5 7021-8 ####[facility]ITALA [id number] [place] [address] [place] CNNURSEon 07-07-2024 CNNURSE Normal [facility] CNPNon 07-07-2024 CNPN Normal [facility] CNOVon 06-24-2024 CNOV Normal [facility] CNOVon 06-17-2024 CNOV Normal [facility] CNPNon 06-17-2024 CNPN Normal [facility] Pathology biopsy report Regino (Tiss)on 06-17-2024 AP DISCLAIMER Normal [facility] Comment on above: Order Comment: Speci men Type: TISSUE SPECIMENOrdering Facility: [facility] Address: [address] [place] [address] Result Comment: Ty de la rosa Developed Test (LDT) Disclaimer:Performance characteristics of immunohistochemical, immunofluorescent, and chromogenic in-situ hybridization tests have been determined by the performing laboratory within [facility]'s [facility] CenterF[facility] Pathology and Laboratory Medicine Department ([facility], [facility], [facility], [facility], [facility], [facility], or [facility]) in a manner consistent with CLIA requirements. One or more of these tests may not have been cleared or approved by the FDA. [facility] is regulated under CLIA as qualified to perform high-complexity testing. These tests are used for clinical purposes. These should not be regarded as investigational or for research. Positive and negative controls stain appropriately. Performed By: #### 6 6121-5 ####[facility] LABIA [id number] [place] [address] [place] CASE REPORT Normal [facility] Comment on above: Order Comment: Speci men Type: TISSUE SPECIMENOrdering Facility: [facility] Address: [address] [place] [address] Result Comment: Surg ical Pathology Report Case: [id number] Provider: Madleaine Bronson MD Collected: 06/17/2024 10:36 AMOrdering Location: Dermatology Received: 06/17/2024 03:49 PMPathologist: Candace Eugene MDSpecimen: Skin, Excision, right crown of scalp Performed By: #### 6 6121-5 ####[facility] LABIA [id number] [place] [address] [place] CLINICAL HISTORY bx proven SCC, Mohs case, non- marginal tissue ( mod diff- SCC) . Suspicious for intravascular SCC, r/o PNI, LVI Normal [facility] Comment on above: Order Comment: Speci men Type: TISSUE SPECIMENOrdering Facility: [facility] Address: [address] [place] [address] Performed By: #### 6 6121-5 ####[facility] LABIA [id number] [place] [address] [place] DIAGNOSIS COMMENT A. Perineural invasi on and lymphovascular space invasion are not identified. The maximum depth of the transected tumor is 8 mm. Normal [facility] Comment on above: Order Comment: Speci men Type: TISSUE SPECIMENOrdering Facility: [facility] Address: [address] [place] [address] Performed By: #### 6 6121-5 ####[facility] LABCLIA [id number] [address] [place] FINAL DIAGNOSIS Normal [facility] Comment on above: Order Comment: Speci men Type: TISSUE SPECIMENOrdering Facility: [facility] Address: [address] [place] [address] Result Comment: A. 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, see comment.[place]/LANG 06/21/2024 at 1001 EDT Performed By: #### 6 6121-5 ####[facility] LABCLIA [id number] [address] STATES OF [facility] FINAL PERFORMING LAB Normal [facility] Comment on above: Order Comment: Speci men Type: TISSUE SPECIMENOrdering Facility: [facility] Address: [address] [place] [address] Result Comment: Diag nostic interpretation performed at: [facility], [address] [place] [address] CLIA# [id number] Director: Misha Prater MD Performed By: #### 6 6121-5 ####[facility] LABCLIA [id number] [place] [address] [place] GROSS DESCRIPTION Normal [facility] Comment on above: Order Comment: Speci men Type: TISSUE SPECIMENOrdering Facility: [facility] Address: [address] [place] [address] Result Comment: A. S kin, ExcisionReceived in formalin are two irregular segments of skin and subcutaneous tissue aggregating to 2.5 x 2.1 x 0.5 cm. The specimens were previously inked by the surgeon. Totally submitted in two cassettes.Gross examination performed at [facility], [address] [place], [place] [id number] 06/18/2024 3:36 AM Performed By: #### 6 6121-5 ####[facility] LABCLIA [id number] [address] [address] [place] Basic metabolic 2000 panelon 06-16-2024 Anion gap [Moles/Vol] 9 mmol/L Normal 8-15 [facility] Comment on above: Order Comment: Speci men Type: BLOOD SPECIMENOrdering Facility: [facility] Address: [address] [place] [address] Performed By: #### 2 4321-2 ####[facility] HOSPITALNCMJ [id number] [place] [address] [place] Calcium [Mass/Vol] 9.4 mg/dL Normal 8.5-10.2 [facility] Comment on above: Order Comment: Speci men Type: BLOOD SPECIMENOrdering Facility: [facility] Address: [address] [place] [address] Performed By: #### 2 4321-2 ####[facility]ITALA [id number] [place] [address] [place] Chloride [Moles/Vol] 100 mmol/L Normal 98-107 [facility] Comment on above: Order Comment: Speci men Type: BLOOD SPECIMENOrdering Facility: [facility] Address: [address] [place] [address] Performed By: #### 2 4321-2 ####[facility] HOSPITALNCLIA [id number] [place] [address] [place] CO2 [Moles/Vol] 29 mmol/L Normal 22-30 [facility] Comment on above: Order Comment: Speci men Type: BLOOD SPECIMENOrdering Facility: [facility] Address: [address] [place] [address] Performed By: #### 2 4321-2 ####[facility] [id number] [place] [address] [place] Creatinine [Mass/Vol] 1.00 mg/dL Normal 0.73-1.22 [facility] Comment on above: Order Comment: Bassam hong Type: BLOOD SPECIMENOrdering Facility: [facility] Address: [address] [place] [address] Performed By: #### 2 4321-2 ####[facility] [id number] [place] [address] [place] Creatinine and Glomerular filtration rate.predicted panel (S/P/Bld) 80 mL/min/1.73m??? Normal >=60 [facility] Comment on above: Order Comment: Bassam hong Type: BLOOD SPECIMENOrdering Facility: [facility] Address: [address] [place] [address] Result Comment: Beth mated Glomerular Filtration Rate (eGFR) is calculated using the 2020 CKD-EPI creatinine equation. This equation utilizes serum creatinine, sex, and age as parameters. The creatinine assay has traceable calibration to isotope dilution-mass spectrometry. Refer to KDIGO guidelines for clinical interpretation. In patients with unstable renal function, e.g. those with acute kidney injury, the eGFR may not accurately reflect actual GFR. Performed By: #### 2 4321-2 ####[facility] [id number] [place] [address] [place] Glucose [Mass/Vol] 149 mg/dL High 74-99 [facility] Comment on above: Order Comment: Jose Manueli hal Type: BLOOD SPECIMENOrdering Facility: [facility] Address: [address] [place] [address] Result Comment: The [place] Diabetes Association (ADA) provides guidance for cutoff values for fasting glucose and random glucose. The ADA defines fasting as no caloric intake for at least 8 hours. Fasting plasma glucose results between 100 to 125 mg/dL indicate increased risk for diabetes (prediabetes).Fasting plasma glucose results greater than or equal to 126 mg/dL meet the criteria for diagnosis of diabetes. In the absence of unequivocal hyperglycemia, results should be confirmed by repeat testing. In a patient with classic symptoms of hyperglycemia or hyperglycemic crisis, random plasma glucose results greater than or equal to 200 mg/dL meet the criteria for diagnosis of diabetes.Reference: Standards of Medical Care in Diabetes 2016, [place] [employer] Association. Diabetes Care. 2016.39(Suppl 1). Performed By: #### 2 4321-2 ####[facility] HOSPITALLIShireen [id number] [place] [address] [place] Potassium [Moles/Vol] 3.9 mmol/L Normal 3.7-5.1 [facility] Comment on above: Order Comment: Jose Manueli hal Type: BLOOD SPECIMENOrdering Facility: [facility] Address: [address] [place] [address] Performed By: #### 2 4321-2 ####[facility] [id number] [place] [address] [place] Sodium [Moles/Vol] 138 mmol/L Normal 136-144 [facility] Comment on above: Order Comment: Bassam hong Type: BLOOD SPECIMENOrdering Facility: [facility] Address: [address] [place] [address] Performed By: #### 2 4321-2 ####[facility] [id number] [place] [address] [place] Urea nitrogen [Mass/Vol] 21 mg/dL Normal 9-24 [facility] Comment on above: Order Comment: Speci men Type: BLOOD SPECIMENOrdering Facility: [facility] Address: [address] [place] [address] Performed By: #### 2 4321-2 ####[facility] [id number] [place] [address] [place] CBC W Auto Differential pane l (Bld)on 06-16-2024 Basophils (Bld) [#/Vol] 10*3/uL Normal <0.11 [facility] Comment on above: Order Comment: Speci men Type: BLOOD SPECIMENOrdering Facility: [facility] Address: [address] [place] [address] Performed By: #### 5 7021-8 ####[facility] HOSPITALWALLIA [id number] [place] [address] [place] Basophils/100 WBC (Bld) 0.3 % Normal [facility] Comment on above: Order Comment: Speci men Type: BLOOD SPECIMENOrdering Facility: [facility] Address: [address] [place] [address] Performed By: #### 5 7021-8 ####[facility] [id number] [place] [address] [place] Differential cell count method Nom (Bld) Auto Normal [facility] Comment on above: Order Comment: Speci men Type: BLOOD SPECIMENOrdering Facility: [facility] Address: [address] [place] [address] Performed By: #### 5 7021-8 ####[facility] [id number] [place] [address] [place] Eosinophils (Bld) [#/Vol] 0.31 10*3/uL Normal <0.46 [facility] Comment on above: Order Comment: Speci men Type: BLOOD SPECIMENOrdering Facility: [facility] Address: [address] [place] [address] Performed By: #### 5 7021-8 ####[facility] [id number] [place] [address] [place] Eosinophils/100 WBC (Bld) 5.0 % Normal [facility] Comment on above: Order Comment: Speci men Type: BLOOD SPECIMENOrdering Facility: [facility] Address: [address] [place] [address] Performed By: #### 5 7021-8 ####[facility]PITALNCLIA [id number] [place] [address] [place] Erythrocyte distribution width (RBC) [Ratio] 20.5 % High 11.5-15.0 [facility] Comment on above: Order Comment: Speci men Type: BLOOD SPECIMENOrdering Facility: [facility] Address: [address] [place] [address] Performed By: #### 5 7021-8 ####[facility] [id number] [place] [address] [place] Hematocrit (Bld) [Volume fraction] 30.5 % Low 39.0-51.0 [facility] Comment on above: Order Comment: Speci men Type: BLOOD SPECIMENOrdering Facility: [facility] Address: [address] [place] [address] Performed By: #### 5 7021-8 ####[facility] [id number] [place] [address] [place] Hemoglobin (Bld) [Mass/Vol] 9.2 g/dL Low 13.0-17.0 [facility] Comment on above: Order Comment: Speci men Type: BLOOD SPECIMENOrdering Facility: [facility] Address: [address] [place] [address] Performed By: #### 5 7021-8 ####[facility] [id number] [place] [address] [place] Immature granulocytes (Bld) [#/Vol] 10*3/uL Normal <0.10 [facility] Comment on above: Order Comment: Speci men Type: BLOOD SPECIMENOrdering Facility: [facility] Address: [address] [place] [address] Performed By: #### 5 7021-8 ####[facility] [id number] [place] [address] [place] Immature granulocytes/100 WBC (Bld) 0.3 % Normal [facility] Comment on above: Order Comment: Speci men Type: BLOOD SPECIMENOrdering Facility: [facility] Address: [address] [place] [address] Performed By: #### 5 7021-8 ####[facility] [id number] [place] [address] [place] Lymphocytes (Bld) [#/Vol] 2.02 10*3/uL Normal 1.00-4.00 [facility] Comment on above: Order Comment: Speci men Type: BLOOD SPECIMENOrdering Facility: [facility] Address: [address] [place] [address] Performed By: #### 5 7021-8 ####[facility]ITALNCK[facility] [id number] [place] [address] [place] Lymphocytes/100 WBC (Bld) 32.3 % Normal [facility] Comment on above: Order Comment: Speci men Type: BLOOD SPECIMENOrdering Facility: [facility] Address: [address] [place] [address] Performed By: #### 5 7021-8 ####[facility]PITALNCLIA [id number] [place] [address] [place] MCH (RBC) [Entitic mass] 24.5 pg Low 26.0-34.0 [facility] Comment on above: Order Comment: Speci men Type: BLOOD SPECIMENOrdering Facility: [facility] Address: [address] [place] [address] Performed By: #### 5 7021-8 ####[facility]PITALNCLIA [id number] [place] [address] [place] MCHC (RBC) [Mass/Vol] 30.2 g/dL Low 30.5-36.0 [facility] Comment on above: Order Comment: Speci men Type: BLOOD SPECIMENOrdering Facility: [facility] Address: [address] [place] [address] Performed By: #### 5 7021-8 ####[facility] BIENVENIDOESTHER [id number] [place] [address] [place] MCV (RBC) [Entitic vol] 81.1 fL Normal 80.0-100.0 [facility] Comment on above: Order Comment: Speci men Type: BLOOD SPECIMENOrdering Facility: [facility] Address: [address] [place] [address] Performed By: #### 5 7021-8 ####[facility] HOSPITALCINDY [id number] [place] [address] [place] Monocytes (Bld) [#/Vol] 0.47 10*3/uL Normal <0.87 [facility] Comment on above: Order Comment: Speci men Type: BLOOD SPECIMENOrdering Facility: [facility] Address: [address] [place] [address] Performed By: #### 5 7021-8 ####[facility]PITALNCLIA [id number] [place] [address] [place] Monocytes/100 WBC (Bld) 7.5 % Normal [facility] Comment on above: Order Comment: Speci men Type: BLOOD SPECIMENOrdering Facility: [facility] Address: [address] [place] [address] Performed By: #### 5 7021-8 ####[facility] H[facility]PITALNCLIA [id number] [place] [address] [place] Neutrophils (Bld) [#/Vol] 3.42 10*3/uL Normal 1.45-7.50 [facility] Comment on above: Order Comment: Speci men Type: BLOOD SPECIMENOrdering Facility: [facility] Address: [address] [place] [address] Performed By: #### 5 7021-8 ####[facility] HOSPITALANGELICALIA [id number] [place] [address] [place] Neutrophils/100 WBC (Bld) 54.6 % Normal [facility] Comment on above: Order Comment: Speci men Type: BLOOD SPECIMENOrdering Facility: [facility] Address: [address] [place] [address] Performed By: #### 5 7021-8 ####[facility] HOSPITALLIA [id number] [place] [address] [place] Nucleated RBC (Bld) [#/Vol] 10*3/uL Normal <0.01 [facility] Comment on above: Order Comment: Speci men Type: BLOOD SPECIMENOrdering Facility: [facility] Address: [address] [place] [address] Performed By: #### 5 7021-8 ####[facility] [id number] [place] [address] [place] Nucleated RBC/100 WBC (Bld) [Ratio] 0.0 /100 WBC Normal [facility] Comment on above: Order Comment: Speci men Type: BLOOD SPECIMENOrdering Facility: [facility] Address: [address] [place] [address] Performed By: #### 5 7021-8 ####[facility]A [id number] [place] [address] [place] Platelet mean volume (Bld) [Entitic vol] 8.4 fL Low 9.0-12.7 [facility] Comment on above: Order Comment: Speci men Type: BLOOD SPECIMENOrdering Facility: [facility] Address: [address] [place] [address] Performed By: #### 5 7021-8 ####[facility] [id number] [place] [address] [place] Platelets (Bld) [#/Vol] 207 10*3/uL Normal 150-400 [facility] Comment on above: Order Comment: Speci men Type: BLOOD SPECIMENOrdering Facility: [facility] Address: [address] [place] [address] Performed By: #### 5 7021-8 ####[facility] HOSPITALNCKATERINA [id number] [place] [address] [place] RBC (Bld) [#/Vol] 3.76 10*6/uL Low 4.20-6.00 [facility] Comment on above: Order Comment: Speci men Type: BLOOD SPECIMENOrdering Facility: [facility] Address: [address] [place] [address] Performed By: #### 5 7021-8 ####[facility] HOSPITALNCLIA [id number] [place] [address] [place] WBC (Bld) [#/Vol] 6.26 10*3/uL Normal 3.70-11.00 [facility] Comment on above: Order Comment: Speci men Type: BLOOD SPECIMENOrdering Facility: [facility] Address: [address] [place] [address] Performed By: #### 5 7021-8 ####[facility] HOSPITALNCLIA [id number] [place] [address] [place] [facility] Prostate specific Ag [Mass/Vol] ng/mL Normal <2.60 [facility] Comment on above: Order Comment: Speci men Type: BLOOD SPECIMENOrdering Facility: [facility] Address: [address] [place] [address] Result Comment: Tota l PSA test methodology used is the Electrochemiluminescence Immunoassay by [employer]. Total PSA values by differing methodologies cannot be interchanged. Performed By: #### 2 857-1 ####[facility] LABCLIA [id number] [facility] [place] [address] [place] Basic metabolic 2000 panelon 05-12-2024 Anion gap [Moles/Vol] 8 mmol/L Normal 8-15 [facility] Comment on above: Order Comment: Speci men Type: BLOOD SPECIMENOrdering Facility: [facility] Address: [address] [place] [address] Performed By: #### 2 4321-2 ####[facility] NIKOLE MILLWANGELICALIA [id number] [place] [address] [place] Calcium [Mass/Vol] 9.3 mg/dL Normal 8.5-10.2 [facility] Comment on above: Order Comment: Speci men Type: BLOOD SPECIMENOrdering Facility: [facility] Address: [address] [place] [address] Performed By: #### 2 4321-2 ####[facility] MILLWNCLIA [id number] [place] [address] [place] Chloride [Moles/Vol] 103 mmol/L Normal 98-107 [facility] Comment on above: Order Comment: Speci men Type: BLOOD SPECIMENOrdering Facility: [facility] Address: [address] [place] [address] Performed By: #### 2 4321-2 ####[facility] MILLWNCLIA [id number] [place] [address] [place] CO2 [Moles/Vol] 28 mmol/L Normal 22-30 [facility] Comment on above: Order Comment: Speci men Type: BLOOD SPECIMENOrdering Facility: [facility] Address: [address] [place] [address] Performed By: #### 2 4321-2 ####[facility] NIKOLE MILLTOWNCLIA [id number] [place] [address] [place] Creatinine [Mass/Vol] 0.97 mg/dL Normal 0.73-1.22 [facility] Comment on above: Order Comment: Bassam hong Type: BLOOD SPECIMENOrdering Facility: [facility] Address: [address] [place] [address] Performed By: #### 2 4321-2 ####[facility] [id number] [place] [address] [place] Creatinine and Glomerular filtration rate.predicted panel (S/P/Bld) 83 mL/min/1.73m??? Normal >=60 [facility] Comment on above: Order Comment: Bassam hong Type: BLOOD SPECIMENOrdering Facility: [facility] Address: [address] [place] [address] Result Comment: Beth mated Glomerular Filtration Rate (eGFR) is calculated using the 2020 CKD-EPI creatinine equation. This equation utilizes serum creatinine, sex, and age as parameters. The creatinine assay has traceable calibration to isotope dilution-mass spectrometry. Refer to KDIGO guidelines for clinical interpretation. In patients with unstable renal function, e.g. those with acute kidney injury, the eGFR may not accurately reflect actual GFR. Performed By: #### 2 4321-2 ####[facility] [id number] [place] [address] [place] Glucose [Mass/Vol] 133 mg/dL High 74-99 [facility] Comment on above: Order Comment: Bassam hong Type: BLOOD SPECIMENOrdering Facility: [facility] Address: [address] [place] [address] Result Comment: The [place] Diabetes Association (ADA) provides guidance for cutoff values for fasting glucose and random glucose. The ADA defines fasting as no caloric intake for at least 8 hours. Fasting plasma glucose results between 100 to 125 mg/dL indicate increased risk for diabetes (prediabetes).Fasting plasma glucose results greater than or equal to 126 mg/dL meet the criteria for diagnosis of diabetes. In the absence of unequivocal hyperglycemia, results should be confirmed by repeat testing. In a patient with classic symptoms of hyperglycemia or hyperglycemic crisis, random plasma glucose results greater than or equal to 200 mg/dL meet the criteria for diagnosis of diabetes.Reference: Standards of Medical Care in Diabetes 2016, [place] [employer] Association. Diabetes Care. 2016.39(Suppl 1). Performed By: #### 2 4321-2 ####[facility] ANDREW [id number] [place] [address] [place] Potassium [Moles/Vol] 4.1 mmol/L Normal 3.7-5.1 [facility] Comment on above: Order Comment: Speci men Type: BLOOD SPECIMENOrdering Facility: [facility] Address: [address] [place] [address] Performed By: #### 2 4321-2 ####[facility] HOSPITALANGELICAShireen [id number] [place] [address] [place] Sodium [Moles/Vol] 139 mmol/L Normal 136-144 [facility] Comment on above: Order Comment: Speci men Type: BLOOD SPECIMENOrdering Facility: [facility] Address: [address] [place] [address] Performed By: #### 2 4321-2 ####[facility] HOSPITALMJ [id number] [place] [address] [place] Urea nitrogen [Mass/Vol] 18 mg/dL Normal 9-24 [facility] Comment on above: Order Comment: Speci men Type: BLOOD SPECIMENOrdering Facility: [facility] Address: [address] [place] [address] Performed By: #### 2 4321-2 ####[facility] HOSPITALNCLI [id number] [place] [address] [place] CBC W Auto Differential pane l (Bld)on 05-12-2024 Basophils (Bld) [#/Vol] 10*3/uL Normal <0.11 [facility] Comment on above: Order Comment: Speci men Type: BLOOD SPECIMENOrdering Facility: [facility] Address: [address] [place] [address] Performed By: #### 5 7021-8 ####[facility] BIENVENIDOWANGELICALIA [id number] [place] [address] [place] Basophils/100 WBC (Bld) 0.2 % Normal [facility] Comment on above: Order Comment: Speci men Type: BLOOD SPECIMENOrdering Facility: [facility] Address: [address] [place] [address] Performed By: #### 5 7021-8 ####[facility] BIENVENIDOGRASS VALLEYANGELICALIA [id number] [place] [address] [place] Differential cell count method Nom (Bld) Auto Normal [facility] Comment on above: Order Comment: Speci men Type: BLOOD SPECIMENOrdering Facility: [facility] Address: [address] [place] [address] Performed By: #### 5 7021-8 ####[facility] HOSPITALANGELICAKATERINA [id number] [place] [address] [place] Eosinophils (Bld) [#/Vol] 0.25 10*3/uL Normal <0.46 [facility] Comment on above: Order Comment: Speci men Type: BLOOD SPECIMENOrdering Facility: [facility] Address: [address] [place] [address] Performed By: #### 5 7021-8 ####[facility] HOSPITALHEAVENA [id number] [place] [address] [place] Eosinophils/100 WBC (Bld) 4.5 % Normal [facility] Comment on above: Order Comment: Speci men Type: BLOOD SPECIMENOrdering Facility: [facility] Address: [address] [place] [address] Performed By: #### 5 7021-8 ####[facility] HOSPITALNCLIA [id number] [place] [address] [place] Erythrocyte distribution width (RBC) [Ratio] 20.5 % High 11.5-15.0 [facility] Comment on above: Order Comment: Speci men Type: BLOOD SPECIMENOrdering Facility: [facility] Address: [address] [place] [address] Performed By: #### 5 7021-8 ####[facility] HOSPITALNCKANE [facility] [id number] [place] [address] [place] Hematocrit (Bld) [Volume fraction] 32.0 % Low 39.0-51.0 [facility] Comment on above: Order Comment: Speci men Type: BLOOD SPECIMENOrdering Facility: [facility] Address: [address] [place] [address] Performed By: #### 5 7021-8 ####[facility] HOSPITALNCKANE [facility] [id number] [place] [address] [place] Hemoglobin (Bld) [Mass/Vol] 9.7 g/dL Low 13.0-17.0 [facility] Comment on above: Order Comment: Speci men Type: BLOOD SPECIMENOrdering Facility: [facility] Address: [address] [place] [address] Performed By: #### 5 7021-8 ####[facility] HOSPITALNCLIA [id number] [place] [address] [place] Immature granulocytes (Bld) [#/Vol] 10*3/uL Normal <0.10 [facility] Comment on above: Order Comment: Speci men Type: BLOOD SPECIMENOrdering Facility: [facility] Address: [address] [place] [address] Performed By: #### 5 7021-8 ####[facility]ITALA [id number] [place] [address] [place] Immature granulocytes/100 WBC (Bld) 0.4 % Normal [facility] Comment on above: Order Comment: Speci men Type: BLOOD SPECIMENOrdering Facility: [facility] Address: [address] [place] [address] Performed By: #### 5 7021-8 ####[facility] MILLWNCLIA [id number] [place] [address] [place] Lymphocytes (Bld) [#/Vol] 2.47 10*3/uL Normal 1.00-4.00 [facility] Comment on above: Order Comment: Speci men Type: BLOOD SPECIMENOrdering Facility: [facility] Address: [address] [place] [address] Performed By: #### 5 7021-8 ####[facility] HOSPITALWNCLIA [id number] [place] [address] [place] Lymphocytes/100 WBC (Bld) 44.2 % Normal [facility] Comment on above: Order Comment: Speci men Type: BLOOD SPECIMENOrdering Facility: [facility] Address: [address] [place] [address] Performed By: #### 5 7021-8 ####[facility] HOSPITALNCLIA [id number] [place] [address] [place] MCH (RBC) [Entitic mass] 24.5 pg Low 26.0-34.0 [facility] Comment on above: Order Comment: Speci men Type: BLOOD SPECIMENOrdering Facility: [facility] Address: [address] [place] [address] Performed By: #### 5 7021-8 ####[facility] MILLGRASS VALLEYNCLIA [id number] [place] [address] [place] MCHC (RBC) [Mass/Vol] 30.3 g/dL Low 30.5-36.0 [facility] Comment on above: Order Comment: Speci men Type: BLOOD SPECIMENOrdering Facility: [facility] Address: [address] [place] [address] Performed By: #### 5 7021-8 ####[facility] HOSPITALNCLIA [id number] [place] [address] [place] MCV (RBC) [Entitic vol] 80.8 fL Normal 80.0-100.0 [facility] Comment on above: Order Comment: Speci men Type: BLOOD SPECIMENOrdering Facility: [facility] Address: [address] [place] [address] Performed By: #### 5 7021-8 ####[facility] [id number] [place] [address] [place] Monocytes (Bld) [#/Vol] 0.37 10*3/uL Normal <0.87 [facility] Comment on above: Order Comment: Speci men Type: BLOOD SPECIMENOrdering Facility: [facility] Address: [address] [place] [address] Performed By: #### 5 7021-8 ####[facility] [id number] [place] [address] [place] Monocytes/100 WBC (Bld) 6.6 % Normal [facility] Comment on above: Order Comment: Speci men Type: BLOOD SPECIMENOrdering Facility: [facility] Address: [address] [place] [address] Performed By: #### 5 7021-8 ####[facility]ITALA [id number] [place] [address] [place] Neutrophils (Bld) [#/Vol] 2.47 10*3/uL Normal 1.45-7.50 [facility] Comment on above: Order Comment: Speci men Type: BLOOD SPECIMENOrdering Facility: [facility] Address: [address] [place] [address] Performed By: #### 5 7021-8 ####[facility] HOSPITALNCLIA [id number] [place] [address] [place] Neutrophils/100 WBC (Bld) 44.1 % Normal [facility] Comment on above: Order Comment: Speci men Type: BLOOD SPECIMENOrdering Facility: [facility] Address: [address] [place] [address] Performed By: #### 5 7021-8 ####[facility] HOSPITALNCKATERIN [id number] [place] [address] [place] Nucleated RBC (Bld) [#/Vol] 10*3/uL Normal <0.01 [facility] Comment on above: Order Comment: Speci men Type: BLOOD SPECIMENOrdering Facility: [facility] Address: [address] [place] [address] Performed By: #### 5 7021-8 ####[facility]OSPITALNCK[facility] [id number] [place] [address] [place] Nucleated RBC/100 WBC (Bld) [Ratio] 0.0 /100 WBC Normal [facility] Comment on above: Order Comment: Speci men Type: BLOOD SPECIMENOrdering Facility: [facility] Address: [address] [place] [address] Performed By: #### 5 7021-8 ####[facility] [id number] [place] [address] [place] Platelet mean volume (Bld) [Entitic vol] 8.4 fL Low 9.0-12.7 [facility] Comment on above: Order Comment: Speci men Type: BLOOD SPECIMENOrdering Facility: [facility] Address: [address] [place] [address] Performed By: #### 5 7021-8 ####[facility] HOSPITALNCLIA [id number] [place] [address] [place] Platelets (Bld) [#/Vol] 192 10*3/uL Normal 150-400 [facility] Comment on above: Order Comment: Speci men Type: BLOOD SPECIMENOrdering Facility: [facility] Address: [address] [place] [address] Performed By: #### 5 7021-8 ####[facility] HOSPITALNCLIA [id number] [place] [address] [place] RBC (Bld) [#/Vol] 3.96 10*6/uL Low 4.20-6.00 [facility] Comment on above: Order Comment: Speci men Type: BLOOD SPECIMENOrdering Facility: [facility] Address: [address] [place] [address] Performed By: #### 5 7021-8 ####[facility] HOSPITALNCA [id number] [place] [address] [place] WBC (Bld) [#/Vol] 5.59 10*3/uL Normal 3.70-11.00 [facility] Comment on above: Order Comment: Speci men Type: BLOOD SPECIMENOrdering Facility: [facility] Address: [address] [place] [address] Performed By: #### 5 7021-8 ####[facility]ITALA [id number] [place] [address] [place] PSA SerPl-mCncon 05-12-2024 Prostate specific Ag [Mass/Vol] ng/mL Normal <2.60 [facility] Comment on above: Order Comment: Speci men Type: BLOOD SPECIMENOrdering Facility: [facility] Address: [address] [place] [address] Result Comment: Tota l PSA test methodology used is the Electrochemiluminescence Immunoassay by [employer]. Total PSA values by differing methodologies cannot be interchanged. Performed By: #### 2 857-1 ####[facility] LABCLIA [id number] [place] [address] [place] CNPNon 2024 CNPN Normal [facility] CNOVon 05-04-2024 CNOV Normal [facility] SURGICAL PATHOLOGYon 025 CASE REPORT Normal [facility] Comment on above: Order Comment: Speci men Type: TISSUE SPECIMENOrdering Facility: [facility] Address: [address] [place] [address] Result Comment: Surg ica Pathology Report Case: [id number] Provider: Richie Dejesus MD Collected: 05/04/2024 12:50 PMOrdering Location: Dermatology Received: 05/04/2024 02:24 PMPathologist: Gabi Gonzalez MDSpecimen: Skin, Shave Biopsy, right crown scalp Performed By: #### S ####[facility] LABCLIA [id number] [address] [place] CLINICAL HISTORY R/O nmsc Normal [facility] Comment on above: Order Comment: Speci men Type: TISSUE SPECIMENOrdering Facility: [facility] Address: [address] [place] [address] Performed By: #### S ####[facility] LABCLIA [id number] [address] [place] DIAGNOSIS COMMENT Normal [facility] Comment on above: Order Comment: Speci men Type: TISSUE SPECIMENOrdering Facility: [facility] Address: [address] [place] [address] Result Comment: 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 The epidermis is broadly transected by the deep biopsy margin. An invasive squamous cell carcinoma cannot entirely be excluded. Clinical correlation is recommended. Performed By: #### S ####[facility] LABCLIA [id number] [address] STATES OF [facility] FINAL DIAGNOSIS Normal [facility] Comment on above: Order Comment: Speci men Type: TISSUE SPECIMENOrdering Facility: [facility] Address: [address] [place] [address] Result Comment: A. S kin, right crown scalp, shave biopsy:- Squamous cell carcinoma, see comment.MP/NM/oracio 05/05/2024 Performed By: #### S ####[facility] LABCLIA [id number] [place] [address] [place] FINAL PERFORMING LAB Normal [facility] Comment on above: Order Comment: Speci men Type: TISSUE SPECIMENOrdering Facility: [facility] Address: [address] [place] [address] Result Comment: Diag nostic interpretation performed at: [facility], [address] [place] [address] CLIA# [id number] Director: Misha Prater MD Performed By: #### S ####[facility] LABCLIA [id number] [place] [address] [place] GROSS DESCRIPTION Normal [facility] Comment on above: Order Comment: Speci men Type: TISSUE SPECIMENOrdering Facility: [facility] Address: [address] [place] [address] Result Comment: A. S kin, Shave BiopsyReceived in formalin is a 1.5 x 1.0 x 0.3 cm shave of skin. On the skin surface there is a 1.5 cm yellow-white slightly elevated and firm area. The specimen is trisected. Totally submitted in two cassettes.[facility] May 04, 2024 9:01 PMGross examination performed at [facility], [address] [place] [address] Performed By: #### S ####[facility] LABCLIA [id number] [place] [address] [place] Basic metabolic 2000 panelon 04-14-2024 Anion gap [Moles/Vol] 7 mmol/L Low 8-15 [facility] Comment on above: Order Comment: Speci men Type: BLOOD SPECIMENOrdering Facility: [facility] Address: [address] [place] [address] Performed By: #### 2 4321-2 ####[facility]DR[facility] HOSPITALLIA [id number] [place] [address] [place] Calcium [Mass/Vol] 9.7 mg/dL Normal 8.5-10.2 [facility] Comment on above: Order Comment: Speci men Type: BLOOD SPECIMENOrdering Facility: [facility] Address: [address] [place] [address] Performed By: #### 2 4321-2 ####[facility] MILLTOWNCLIA [id number] [place] [address] [place] Chloride [Moles/Vol] 104 mmol/L Normal 98-107 [facility] Comment on above: Order Comment: Speci men Type: BLOOD SPECIMENOrdering Facility: [facility] Address: [address] [place] [address] Performed By: #### 2 4321-2 ####[facility]DR[facility] HOSPITALLIA [id number] [place] [address] [place] CO2 [Moles/Vol] 28 mmol/L Normal 22-30 [facility] Comment on above: Order Comment: Speci men Type: BLOOD SPECIMENOrdering Facility: [facility] Address: [address] [place] [address] Performed By: #### 2 4321-2 ####[facility] MILLWNCLIA [id number] [place] [address] [place] Creatinine [Mass/Vol] 0.97 mg/dL Normal 0.73-1.22 [facility] Comment on above: Order Comment: Speci men Type: BLOOD SPECIMENOrdering Facility: [facility] Address: [address] [place] [address] Performed By: #### 2 4321-2 ####[facility] HOSPITALWNCLIA [id number] [place] [address] [place] Creatinine and Glomerular filtration rate.predicted panel (S/P/Bld) 84 mL/min/1.73m??? Normal >=60 [facility] Comment on above: Order Comment: Bassam hong Type: BLOOD SPECIMENOrdering Facility: [facility] Address: [address] [place] [address] Result Comment: Beth mated Glomerular Filtration Rate (eGFR) is calculated using the 2020 CKD-EPI creatinine equation. This equation utilizes serum creatinine, sex, and age as parameters. The creatinine assay has traceable calibration to isotope dilution-mass spectrometry. Refer to KDIGO guidelines for clinical interpretation. In patients with unstable renal function, e.g. those with acute kidney injury, the eGFR may not accurately reflect actual GFR. Performed By: #### 2 4321-2 ####[facility] [id number] [place] [address] [place] Glucose [Mass/Vol] 135 mg/dL High 74-99 [facility] Comment on above: Order Comment: Bassam hong Type: BLOOD SPECIMENOrdering Facility: [facility] Address: [address] [place] [address] Result Comment: The [place] Diabetes [employer] (ADA) provides guidance for cutoff values for fasting glucose and random glucose. The ADA defines fasting as no caloric intake for at least 8 hours. Fasting plasma glucose results between 100 to 125 mg/dL indicate increased risk for diabetes (prediabetes).Fasting plasma glucose results greater than or equal to 126 mg/dL meet the criteria for diagnosis of diabetes. In the absence of unequivocal hyperglycemia, results should be confirmed by repeat testing. In a patient with classic symptoms of hyperglycemia or hyperglycemic crisis, random plasma glucose results greater than or equal to 200 mg/dL meet the criteria for diagnosis of diabetes.Reference: Standards of Medical Care in Diabetes 2016, [place] [employer]. Diabetes Care. 2016.39(Suppl 1). Performed By: #### 2 4321-2 ####[facility] [id number] [place] [address] [place] Potassium [Moles/Vol] 3.9 mmol/L Normal 3.7-5.1 [facility] Comment on above: Order Comment: Speci men Type: BLOOD SPECIMENOrdering Facility: [facility] Address: [address] [place] [address] Performed By: #### 2 4321-2 ####[facility]ITALANGELICAK[facility] [id number] [place] [address] [place] Sodium [Moles/Vol] 139 mmol/L Normal 136-144 [facility] Comment on above: Order Comment: Speci men Type: BLOOD SPECIMENOrdering Facility: [facility] Address: [address] [place] [address] Performed By: #### 2 4321-2 ####[facility] [id number] [place] [address] [place] Urea nitrogen [Mass/Vol] 25 mg/dL High 9-24 [facility] Comment on above: Order Comment: Speci men Type: BLOOD SPECIMENOrdering Facility: [facility] Address: [address] [place] [address] Performed By: #### 2 4321-2 ####[facility] HOS[facility]ITALLIA [id number] [place] [address] [place] CBC W Auto Differential pane l (Bld)on 04-14-2024 Basophils (Bld) [#/Vol] 10*3/uL Normal <0.11 [facility] Comment on above: Order Comment: Speci men Type: BLOOD SPECIMENOrdering Facility: [facility] Address: [address] [place] [address] Performed By: #### 5 7021-8 ####[facility] HOSPITALNCA [id number] [place] [address] [place] Basophils/100 WBC (Bld) 0.2 % Normal [facility] Comment on above: Order Comment: Speci men Type: BLOOD SPECIMENOrdering Facility: [facility] Address: [address] [place] [address] Performed By: #### 5 7021-8 ####[facility] BIENVENIDOGRASS VALLEYANGELICALIA [id number] [place] [address] [place] Differential cell count method Nom (Bld) Auto Normal [facility] Comment on above: Order Comment: Speci men Type: BLOOD SPECIMENOrdering Facility: [facility] Address: [address] [place] [address] Performed By: #### 5 7021-8 ####[facility] [id number] [place] [address] [place] Eosinophils (Bld) [#/Vol] 0.18 10*3/uL Normal <0.46 [facility] Comment on above: Order Comment: Speci men Type: BLOOD SPECIMENOrdering Facility: [facility] Address: [address] [place] [address] Performed By: #### 5 7021-8 ####[facility] [id number] [place] [address] [place] Eosinophils/100 WBC (Bld) 3.6 % Normal [facility] Comment on above: Order Comment: Speci men Type: BLOOD SPECIMENOrdering Facility: [facility] Address: [address] [place] [address] Performed By: #### 5 7021-8 ####[facility] [id number] [place] [address] [place] Erythrocyte distribution width (RBC) [Ratio] 20.9 % High 11.5-15.0 [facility] Comment on above: Order Comment: Speci men Type: BLOOD SPECIMENOrdering Facility: [facility] Address: [address] [place] [address] Performed By: #### 5 7021-8 ####[facility] HOSPITALNCLI [id number] [place] [address] [place] Hematocrit (Bld) [Volume fraction] 32.0 % Low 39.0-51.0 [facility] Comment on above: Order Comment: Speci men Type: BLOOD SPECIMENOrdering Facility: [facility] Address: [address] [place] [address] Performed By: #### 5 7021-8 ####[facility]ITALNCK[facility] [id number] [place] [address] [place] Hemoglobin (Bld) [Mass/Vol] 9.5 g/dL Low 13.0-17.0 [facility] Comment on above: Order Comment: Speci men Type: BLOOD SPECIMENOrdering Facility: [facility] Address: [address] [place] [address] Performed By: #### 5 7021-8 ####[facility] [id number] [place] [address] [place] Immature granulocytes (Bld) [#/Vol] 10*3/uL Normal <0.10 [facility] Comment on above: Order Comment: Speci men Type: BLOOD SPECIMENOrdering Facility: [facility] Address: [address] [place] [address] Performed By: #### 5 7021-8 ####[facility] [id number] [place] [address] [place] Immature granulocytes/100 WBC (Bld) 0.4 % Normal [facility] Comment on above: Order Comment: Speci men Type: BLOOD SPECIMENOrdering Facility: [facility] Address: [address] [place] [address] Performed By: #### 5 7021-8 ####[facility] [id number] [place] [address] [place] Lymphocytes (Bld) [#/Vol] 1.69 10*3/uL Normal 1.00-4.00 [facility] Comment on above: Order Comment: Speci men Type: BLOOD SPECIMENOrdering Facility: [facility] Address: [address] [place] [address] Performed By: #### 5 7021-8 ####[facility] BIENVENIDOGRASS VALLEYNCKATERINA [id number] [address] STATES [facility] Lymphocytes/100 WBC (Bld) 33.8 % Normal [facility] Comment on above: Order Comment: Speci men Type: BLOOD SPECIMENOrdering Facility: [facility] Address: [address] [place] [address] Performed By: #### 5 7021-8 ####[facility] HOSPITALNCKATERINA [id number] [place] [address] [place] MCH (RBC) [Entitic mass] 24.4 pg Low 26.0-34.0 [facility] Comment on above: Order Comment: Speci men Type: BLOOD SPECIMENOrdering Facility: [facility] Address: [address] [place] [address] Performed By: #### 5 7021-8 ####[facility] HOSPITALNCKATERINA [id number] [place] [address] [place] MCHC (RBC) [Mass/Vol] 29.7 g/dL Low 30.5-36.0 [facility] Comment on above: Order Comment: Speci men Type: BLOOD SPECIMENOrdering Facility: [facility] Address: [address] [place] [address] Performed By: #### 5 7021-8 ####[facility] HOSPITALNCLIA [id number] [place] [address] [place] MCV (RBC) [Entitic vol] 82.3 fL Normal 80.0-100.0 [facility] Comment on above: Order Comment: Speci men Type: BLOOD SPECIMENOrdering Facility: [facility] Address: [address] [place] [address] Performed By: #### 5 7021-8 ####[facility]ITALNCK[facility] [id number] [place] [address] [place] Monocytes (Bld) [#/Vol] 0.28 10*3/uL Normal <0.87 [facility] Comment on above: Order Comment: Speci men Type: BLOOD SPECIMENOrdering Facility: [facility] Address: [address] [place] [address] Performed By: #### 5 7021-8 ####[facility]ITALA [id number] [place] [address] [place] Monocytes/100 WBC (Bld) 5.6 % Normal [facility] Comment on above: Order Comment: Speci men Type: BLOOD SPECIMENOrdering Facility: [facility] Address: [address] [place] [address] Performed By: #### 5 7021-8 ####[facility] [id number] [place] [address] [place] Neutrophils (Bld) [#/Vol] 2.82 10*3/uL Normal 1.45-7.50 [facility] Comment on above: Order Comment: Speci men Type: BLOOD SPECIMENOrdering Facility: [facility] Address: [address] [place] [address] Performed By: #### 5 7021-8 ####[facility] HOSPITALLIA [id number] [place] [address] [place] Neutrophils/100 WBC (Bld) 56.4 % Normal [facility] Comment on above: Order Comment: Speci men Type: BLOOD SPECIMENOrdering Facility: [facility] Address: [address] [place] [address] Performed By: #### 5 7021-8 ####[facility]ITALL[facility] [id number] [place] [address] [place] Nucleated RBC (Bld) [#/Vol] 10*3/uL Normal <0.01 [facility] Comment on above: Order Comment: Speci men Type: BLOOD SPECIMENOrdering Facility: [facility] Address: [address] [place] [address] Performed By: #### 5 7021-8 ####[facility] HOSPITALNCMJ [id number] [place] [address] [place] Nucleated RBC/100 WBC (Bld) [Ratio] 0.0 /100 WBC Normal [facility] Comment on above: Order Comment: Speci men Type: BLOOD SPECIMENOrdering Facility: [facility] Address: [address] [place] [address] Performed By: #### 5 7021-8 ####[facility]ITALNCLIA [id number] [place] [address] [place] Platelet mean volume (Bld) [Entitic vol] 8.3 fL Low 9.0-12.7 [facility] Comment on above: Order Comment: Speci men Type: BLOOD SPECIMENOrdering Facility: [facility] Address: [address] [place] [address] Performed By: #### 5 7021-8 ####[facility]ITALNCLIA [id number] [place] [address] [place] Platelets (Bld) [#/Vol] 181 10*3/uL Normal 150-400 [facility] Comment on above: Order Comment: Speci men Type: BLOOD SPECIMENOrdering Facility: [facility] Address: [address] [place] [address] Performed By: #### 5 7021-8 ####[facility]ITALNCLIA [id number] [place] [address] [place] RBC (Bld) [#/Vol] 3.89 10*6/uL Low 4.20-6.00 [facility] Comment on above: Order Comment: Speci men Type: BLOOD SPECIMENOrdering Facility: [facility] Address: [address] [place] [address] Performed By: #### 5 7021-8 ####[facility] HOSPITALNCKATERINA [id number] [place] [address] [place] WBC (Bld) [#/Vol] 5.00 10*3/uL Normal 3.70-11.00 [facility] Comment on above: Order Comment: Speci men Type: BLOOD SPECIMENOrdering Facility: [facility] Address: [address] [place] [address] Performed By: #### 5 7021-8 ####[facility]ITALNCLIA [id number] [place] [address] [place] PSA SerPl-mCncon 04-14-2024 Prostate specific Ag [Mass/Vol] ng/mL Normal <2.60 [facility] Comment on above: Order Comment: Speci men Type: BLOOD SPECIMENOrdering Facility: [facility] Address: [address] [place] [address] Result Comment: Tota l PSA test methodology used is the Electrochemiluminescence Immunoassay by [employer]. Total PSA values by differing methodologies cannot be interchanged. Performed By: #### 2 857-1 ####[facility] LABCLIA [id number] [place] [address] [place] CNPNon 04-05-2024 CNPN Normal [facility] CNTHERAPYon 04-01-2024 CNTHERAPY OT/PT/Speech Visit ([facility]) -- LUTHER CASTILLO ([id number]) 1955 Tracee Date Time Provider Department 04/01/24 2:15 PM ENDY CURRAN [facility] Date Time Provider Department Center 04/01/2024 2:15 PM [id number], CYNTHIA*[facility] M Reason for Visit: Physical Therapy [503] PT Discharge [752] Primary Visit Diagnosis:Left hip pain [M25.552] Other Visit Diagnoses:Radiculopathy, lumbar region [M54.16] Decreased ROM of lumbar spine [M53.86] Weakness of trunk musculature [M62.81] Allergies As of Date: 04/01/2024 Noted Allergy Reaction RAGWEED POLLEN 06/11/2023 14 - Other: See Comments Comments: Watering/itchy eyes Date Reviewed: 03/19/2024 Reviewed by: Richie Dejesus MD - Fully Assessed Prescriptions as of 05/12/2024 - abiraterone 250 mg tablet TAKE 4 TABLETS ONCE DAILY ON AN EMPTY STOMACH 1 HOUR BEFORE OR 2 HOURS AFTER A MEAL - atorvastatin (LIPITOR) 20 mg tablet Take 1 tablet by mouth daily at bedtime. For cholesterol. - predniSONE (DELTASONE) 5 mg tablet TAKE 1 TABLET BY MOUTH TWICE DAILY - dexAMETHasone (DECADRON) 4 mg tablet Take 1 tablet by mouth daily with breakfast. Take on mornings of injections - tamsulosin (FLOMAX) 0.4 mg Take 1 capsule by mouth once daily. - darbepoetin dagmar in albumn john (ARANESP INJECTION) by INJECTION(UNSPECIFIED PARENTERAL ROUTES) route every 4 weeks. PRN - cimetidine (TAGAMET) 200 mg tablet Take 200 mg by mouth twice daily. - calcium carbonate/vitamin D3 (CALCIUM + D ORAL) Take 1 tablet by mouth twice daily. - leuprolide acetate (ELIGARD SUBCUTANEOUS) Inject subcutaneously once every 6 months. - denosumab (XGEVA SUBCUTANEOUS) Inject subcutaneously once every month. - iv contrast (will be provided with radiology test) MRI Prostate Inject, intravenously, once for 1 dose. No IV access, insert saline lock prior to the beginning of sedation, infusion, injection of imaging exam. Discontinue saline lock post exam. If Pt. has a central line or IVAD, may access for administration according to line specific nursing protocol. Once exam is complete flush line and de-access according to line specific nursing protocol in the MR contrast administration guidelines link. [facility] [id number] 03-24-2024 [id number] HNO ID: [id number] Author: ENDY CURRAN PT Service: ? Author Type: Physical Therapist Type: [id number] Filed: 03/24/2024 17:11 Note Text: [facility] Physical Therapy Plan of Care Certification Patient Name: Luther Castillo : 1955 [facility] #: [id number] Date: 03/24/2024 To: Catherine Peraza APRN, DIRECTOR OF HEALTH CARE MARKETING From Therapist: Endy Curran PT, DERRICK RE: Patient Certification/ Recertification Your review, approval and electronic signature are required in order to comply with Payor: MEDICARE / Plan: MEDICARE A AND B / Product Type: Medicare / regulations. The identified Physical Therapy PLAN OF CARE for the patient is as follows: M25.552 Left hip pain (primary encounter diagnosis) M54.16 Radiculopathy, lumbar region M53.86 Decreased ROM of lumbar spine M62.81 Weakness of trunk musculature PLAN OF CARE UPDATE: Assessment: Luther Castillo demonstrates improvements in bed mobility, cleaning, dressing, and grooming. The patient has progressed toward goals. Patient continues to present with impairments in ADL's, independence in exercise, overall function, patient reported outcome measures, strength, and symptom management that interfere with standing, walking in the community (Better with standing. 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 L LE with car transfers due to L groin pain.) . Current prognosis is Good due to: current objective clinical presentation, good overall health status, good support system/ coping skills, within-session changes, Prognosis may be limited due to chronic nature of impairments . Patient demonstrates improvement in lumbar ROM, decreased lower back and L groin pain, improving trunk, abdominal and LE strengths and has improved tolerance for longer distance walking since starting therapy. The patient will benefit from continued skilled therapy services to meet the updated goals for this plan of care as noted below. Goals for Episode of Care: addressed 03/24/2024 Patient reported outcome of physical function will increase T-score by a minimum 5 points. (Increased rating by 7 points since last completed) Patient to be independent in home exercise program for low back ROM and lumbar stabilization and LE strengthening exercises to return patient to prior level of function and reduce L hip pain. (Ongoing. Patient completes daily) Patient will decrease lower back and L LE radicular pain to 0-3/10 at rest and with functional activities to allow patient to improve ambulation, transfers, and standing tolerance for ADLs. (Improving. Average pain level is 2-3 out of 10) Patient will increase active ROM of lumbar spine to minimal to moderate limitation overall to allow pt to improve performance of ADLs. (Improving) Patient will demonstrate increase in trunk, abdominal and bilateral LE strengths to 4+ to 4+-5/5 during manual muscle testing in order to improve function for home management tasks, light functional tasks, and prior functional tasks. (Improving) Perform most home management and ADL tasks with decreased report of symptoms/pain in 4-6 weeks. (Improved. Able to walk [place] exercise [place] [facility]) Patient Goals: To decrease lower back and L hip pain (Improving) Time Frame for Goals and Treatment : 05/07/24 Planned Interventions, Frequency, and Duration: 2x/week, 5 weeks Total Number of Visits Planned: 10 Patient to be seen for Therapeutic exercise (22355), Manual therapy (46432), Therapeutic activities (37245), Self-penitentiary management (87780), Patient/Family/Caregiver Education, Body Mechanics Training PLAN FOR NEXT VISIT: Continue to progress LE strengthening with increasing repetitions as pt tolerates. For further details regarding this patient refer to the Physical Therapy electronically documented visit dated 03/24/2024. Provider Attestation I have reviewed the treatment plan for Luther Castillo, [facility]# [id number] for the period of 03/24/24 -- 05/07/24, established on 03/24/2024. Signature certifies the need for therapy services. [facility] CNTHERAPYon 03-24-2024 CNTHERAPY OT/PT/Speech Visit ([facility]) -- LUTHER CASTILLO ([id number]) 1955 M Date Time Provider Department 03/24/24 2:15 PM ENDY CURRAN [facility] Date Time Provider Department Center 03/24/2024 2:15 PM [id number], CYNTHIA*[facility] M Reason for Visit: PT Progress Note [1336] Primary Visit Diagnosis:Left hip pain [M25.552] Other Visit Diagnoses:Radiculopathy, lumbar region [M54.16] Decreased ROM of lumbar spine [M53.86] Weakness of trunk musculature [M62.81] Allergies As of Date: 03/24/2024 Noted Allergy Reaction RAGWEED POLLEN 06/11/2023 14 - Other: See Comments Comments: Watering/itchy eyes Date Reviewed: 03/19/2024 Reviewed by: Richie Dejesus MD - Fully Assessed Prescriptions as of 04/06/2024 - abiraterone 250 mg tablet TAKE 4 TABLETS ONCE DAILY ON AN EMPTY STOMACH 1 HOUR BEFORE OR 2 HOURS AFTER A MEAL - atorvastatin (LIPITOR) 20 mg tablet Take 1 tablet by mouth daily at bedtime. For cholesterol. - predniSONE (DELTASONE) 5 mg tablet TAKE 1 TABLET BY MOUTH TWICE DAILY - cyclobenzaprine (FLEXERIL) 10 mg tablet Take 1 tablet by mouth two times a day as needed for muscle spasm. - dexAMETHasone (DECADRON) 4 mg tablet Take 1 tablet by mouth daily with breakfast. Take on mornings of injections - tamsulosin (FLOMAX) 0.4 mg Take 1 capsule by mouth once daily. - darbepoetin dagmar in albumn john (ARANESP INJECTION) by INJECTION(UNSPECIFIED PARENTERAL ROUTES) route every 4 weeks. PRN - cimetidine (TAGAMET) 200 mg tablet Take 200 mg by mouth twice daily. - calcium carbonate/vitamin D3 (CALCIUM + D ORAL) Take 1 tablet by mouth twice daily. - leuprolide acetate (ELIGARD SUBCUTANEOUS) Inject subcutaneously once every 6 months. - denosumab (XGEVA SUBCUTANEOUS) Inject subcutaneously once every month. - iv contrast (will be provided with radiology test) MRI Prostate Inject, intravenously, once for 1 dose. No IV access, insert saline lock prior to the beginning of sedation, infusion, injection of imaging exam. Discontinue saline lock post exam. If Pt. has a central line or IVAD, may access for administration according to line specific nursing protocol. Once exam is complete flush line and de-access according to line specific nursing protocol in the MR contrast administration guidelines link. Normal [facility] CNOVon 03-19-2024 CNOV Normal [facility] Basic metabolic 2000 panelon 03-17-2024 Anion gap [Moles/Vol] 9 mmol/L Normal 8-15 [facility] Comment on above: Order Comment: Speci men Type: BLOOD SPECIMENOrdering Facility: [facility] Address: [address] [place] [address] Performed By: #### 2 4321-2 ####[facility] MILLTOWNCLIA [id number] [place] [address] [place] Calcium [Mass/Vol] 9.2 mg/dL Normal 8.5-10.2 [facility] Comment on above: Order Comment: Speci men Type: BLOOD SPECIMENOrdering Facility: [facility] Address: [address] [place] [address] Performed By: #### 2 4321-2 ####[facility] MILLTOWALLIA [id number] [place] [address] [place] Chloride [Moles/Vol] 103 mmol/L Normal 98-107 [facility] Comment on above: Order Comment: Speci men Type: BLOOD SPECIMENOrdering Facility: [facility] Address: [address] [place] [address] Performed By: #### 2 4321-2 ####[facility] NIKOLE MILLTOWNCLIA [id number] [place] [address] [place] CO2 [Moles/Vol] 27 mmol/L Normal 22-30 [facility] Comment on above: Order Comment: Speci men Type: BLOOD SPECIMENOrdering Facility: [facility] Address: [address] [place] [address] Performed By: #### 2 4321-2 ####[facility] NIKOLE MILLTOWNCLIA [id number] [place] [address] [place] Creatinine [Mass/Vol] 1.00 mg/dL Normal 0.73-1.22 [facility] Comment on above: Order Comment: Bassam hong Type: BLOOD SPECIMENOrdering Facility: [facility] Address: [address] [place] [address] Performed By: #### 2 4321-2 ####[facility] [id number] [address] OF [facility] Creatinine and Glomerular filtration rate.predicted panel (S/P/Bld) 81 mL/min/1.73m??? Normal >=60 [facility] Comment on above: Order Comment: Bassam hong Type: BLOOD SPECIMENOrdering Facility: [facility] Address: [address] [place] [address] Result Comment: Beth mated Glomerular Filtration Rate (eGFR) is calculated using the 2020 CKD-EPI creatinine equation. This equation utilizes serum creatinine, sex, and age as parameters. The creatinine assay has traceable calibration to isotope dilution-mass spectrometry. Refer to KDIGO guidelines for clinical interpretation. In patients with unstable renal function, e.g. those with acute kidney injury, the eGFR may not accurately reflect actual GFR. Performed By: #### 2 4321-2 ####[facility] [id number] [place] [address] [place] Glucose [Mass/Vol] 94 mg/dL Normal 74-99 [facility] Comment on above: Order Comment: Bassam hong Type: BLOOD SPECIMENOrdering Facility: [facility] Address: [address] [place] [address] Result Comment: The [place] [employer] (ADA) provides guidance for cutoff values for fasting glucose and random glucose. The ADA defines fasting as no caloric intake for at least 8 hours. Fasting plasma glucose results between 100 to 125 mg/dL indicate increased risk for diabetes (prediabetes).Fasting plasma glucose results greater than or equal to 126 mg/dL meet the criteria for diagnosis of diabetes. In the absence of unequivocal hyperglycemia, results should be confirmed by repeat testing. In a patient with classic symptoms of hyperglycemia or hyperglycemic crisis, random plasma glucose results greater than or equal to 200 mg/dL meet the criteria for diagnosis of diabetes.Reference: Standards of Medical Care in Diabetes 2016, [place] [employer]. Diabetes Care. 2016.39(Suppl 1). Performed By: #### 2 4321-2 ####[facility] [id number] [place] [address] [place] Potassium [Moles/Vol] 4.0 mmol/L Normal 3.7-5.1 [facility] Comment on above: Order Comment: Speci men Type: BLOOD SPECIMENOrdering Facility: [facility] Address: [address] [place] [address] Performed By: #### 2 4321-2 ####[facility] [id number] [place] [address] [place] Sodium [Moles/Vol] 139 mmol/L Normal 136-144 [facility] Comment on above: Order Comment: Speci men Type: BLOOD SPECIMENOrdering Facility: [facility] Address: [address] [place] [address] Performed By: #### 2 4321-2 ####[facility] [id number] [place] [address] [place] Urea nitrogen [Mass/Vol] 19 mg/dL Normal 9-24 [facility] Comment on above: Order Comment: Speci men Type: BLOOD SPECIMENOrdering Facility: [facility] Address: [address] [place] [address] Performed By: #### 2 4321-2 ####[facility] [id number] [place] [address] [place] CBC W Auto Differential pane l (Bld)on 03-17-2024 Basophils (Bld) [#/Vol] 10*3/uL Normal <0.11 [facility] Comment on above: Order Comment: Speci men Type: BLOOD SPECIMENOrdering Facility: [facility] Address: [address] [place] [address] Performed By: #### 5 7021-8 ####[facility] MILLWNCLIA [id number] [place] [address] [place] Basophils/100 WBC (Bld) 0.2 % Normal [facility] Comment on above: Order Comment: Speci men Type: BLOOD SPECIMENOrdering Facility: [facility] Address: [address] [place] [address] Performed By: #### 5 7021-8 ####[facility]ITALLIA [id number] [place] [address] [place] Differential cell count method Nom (Bld) Auto Normal [facility] Comment on above: Order Comment: Speci men Type: BLOOD SPECIMENOrdering Facility: [facility] Address: [address] [place] [address] Performed By: #### 5 7021-8 ####[facility] H[facility]ITALWNCLIA [id number] [place] [address] [place] Eosinophils (Bld) [#/Vol] 0.25 10*3/uL Normal <0.46 [facility] Comment on above: Order Comment: Speci men Type: BLOOD SPECIMENOrdering Facility: [facility] Address: [address] [place] [address] Performed By: #### 5 7021-8 ####[facility] MILLTOWNCLIA [id number] [place] [address] [place] Eosinophils/100 WBC (Bld) 4.3 % Normal [facility] Comment on above: Order Comment: Speci men Type: BLOOD SPECIMENOrdering Facility: [facility] Address: [address] [place] [address] Performed By: #### 5 7021-8 ####[facility] MILLWNCLIA [id number] [place] [address] [place] Erythrocyte distribution width (RBC) [Ratio] 20.0 % High 11.5-15.0 [facility] Comment on above: Order Comment: Speci men Type: BLOOD SPECIMENOrdering Facility: [facility] Address: [address] [place] [address] Performed By: #### 5 7021-8 ####[facility] HOSPITALCINDY [id number] [place] [address] [place] Hematocrit (Bld) [Volume fraction] 33.0 % Low 39.0-51.0 [facility] Comment on above: Order Comment: Speci men Type: BLOOD SPECIMENOrdering Facility: [facility] Address: [address] [place] [address] Performed By: #### 5 7021-8 ####[facility] HOSPITALNCMJ [id number] [place] [address] [place] Hemoglobin (Bld) [Mass/Vol] 9.9 g/dL Low 13.0-17.0 [facility] Comment on above: Order Comment: Speci men Type: BLOOD SPECIMENOrdering Facility: [facility] Address: [address] [place] [address] Performed By: #### 5 7021-8 ####[facility] HOSPITALCINDY [id number] [place] [address] [place] Immature granulocytes (Bld) [#/Vol] 10*3/uL Normal <0.10 [facility] Comment on above: Order Comment: Speci men Type: BLOOD SPECIMENOrdering Facility: [facility] Address: [address] [place] [address] Performed By: #### 5 7021-8 ####[facility] HOSPITALNCLIA [id number] [place] [address] [place] Immature granulocytes/100 WBC (Bld) 0.2 % Normal [facility] Comment on above: Order Comment: Speci men Type: BLOOD SPECIMENOrdering Facility: [facility] Address: [address] [place] [address] Performed By: #### 5 7021-8 ####[facility] BIENVENIDOGRASS VALLEYNCMJ [id number] [place] [address] [place] Lymphocytes (Bld) [#/Vol] 2.61 10*3/uL Normal 1.00-4.00 [facility] Comment on above: Order Comment: Speci men Type: BLOOD SPECIMENOrdering Facility: [facility] Address: [address] [place] [address] Performed By: #### 5 7021-8 ####[facility] HOSPITALNCK[facility] [id number] [place] [address] [place] Lymphocytes/100 WBC (Bld) 45.1 % Normal [facility] Comment on above: Order Comment: Speci men Type: BLOOD SPECIMENOrdering Facility: [facility] Address: [address] [place] [address] Performed By: #### 5 7021-8 ####[facility] [id number] [place] [address] [place] MCH (RBC) [Entitic mass] 24.6 pg Low 26.0-34.0 [facility] Comment on above: Order Comment: Speci men Type: BLOOD SPECIMENOrdering Facility: [facility] Address: [address] [place] [address] Performed By: #### 5 7021-8 ####[facility] HOSPITALNCA [id number] [place] [address] [place] MCHC (RBC) [Mass/Vol] 30.0 g/dL Low 30.5-36.0 [facility] Comment on above: Order Comment: Speci men Type: BLOOD SPECIMENOrdering Facility: [facility] Address: [address] [place], [place] [address] Performed By: #### 5 7021-8 ####[facility] HOSPITALNCLIA [id number] [place] [address] [place] MCV (RBC) [Entitic vol] 81.9 fL Normal 80.0-100.0 [facility] Comment on above: Order Comment: Speci men Type: BLOOD SPECIMENOrdering Facility: [facility] Address: [address] [place] [address] Performed By: #### 5 7021-8 ####[facility] HOSPITALNCLIA [id number] [place] [address] [place] Monocytes (Bld) [#/Vol] 0.41 10*3/uL Normal <0.87 [facility] Comment on above: Order Comment: Speci men Type: BLOOD SPECIMENOrdering Facility: [facility] Address: [address] [place] [address] Performed By: #### 5 7021-8 ####[facility] HOSPITALNCLIA [id number] [place] [address] [place] Monocytes/100 WBC (Bld) 7.1 % Normal [facility] Comment on above: Order Comment: Speci men Type: BLOOD SPECIMENOrdering Facility: [facility] Address: [address] [place] [address] Performed By: #### 5 7021-8 ####[facility] HOSPITALLIA [id number] [place] [address] [place] Neutrophils (Bld) [#/Vol] 2.50 10*3/uL Normal 1.45-7.50 [facility] Comment on above: Order Comment: Speci men Type: BLOOD SPECIMENOrdering Facility: [facility] Address: [address] [place] [address] Performed By: #### 5 7021-8 ####[facility] [id number] [place] [address] [place] Neutrophils/100 WBC (Bld) 43.1 % Normal [facility] Comment on above: Order Comment: Speci men Type: BLOOD SPECIMENOrdering Facility: [facility] Address: [address] [place] [address] Performed By: #### 5 7021-8 ####[facility] HOSPITALCINDY [id number] [place] [address] [place] Nucleated RBC (Bld) [#/Vol] 10*3/uL Normal <0.01 [facility] Comment on above: Order Comment: Speci men Type: BLOOD SPECIMENOrdering Facility: [facility] Address: [address] [place] [address] Performed By: #### 5 7021-8 ####[facility] HOSPITALCINDY [id number] [place] [address] [place] Nucleated RBC/100 WBC (Bld) [Ratio] 0.0 /100 WBC Normal [facility] Comment on above: Order Comment: Speci men Type: BLOOD SPECIMENOrdering Facility: [facility] Address: [address] [place] [address] Performed By: #### 5 7021-8 ####[facility] HOSPITALCINDY [id number] [place] [address] [place] Platelet mean volume (Bld) [Entitic vol] 8.5 fL Low 9.0-12.7 [facility] Comment on above: Order Comment: Speci men Type: BLOOD SPECIMENOrdering Facility: [facility] Address: [address] [place] [address] Performed By: #### 5 7021-8 ####[facility] HOSPITALNCLIA [id number] [place] [address] [place] Platelets (Bld) [#/Vol] 200 10*3/uL Normal 150-400 [facility] Comment on above: Order Comment: Speci men Type: BLOOD SPECIMENOrdering Facility: [facility] Address: [address] [place] [address] Performed By: #### 5 7021-8 ####[facility] HOSPITALNCLIA [id number] [place] [address] [place] RBC (Bld) [#/Vol] 4.03 10*6/uL Low 4.20-6.00 [facility] Comment on above: Order Comment: Speci men Type: BLOOD SPECIMENOrdering Facility: [facility] Address: [address] [place] [address] Performed By: #### 5 7021-8 ####[facility]ITALNCLIA [id number] [place] [address] [place] WBC (Bld) [#/Vol] 5.79 10*3/uL Normal 3.70-11.00 [facility] Comment on above: Order Comment: Speci men Type: BLOOD SPECIMENOrdering Facility: [facility] Address: [address] [place] [address] Performed By: #### 5 7021-8 ####[facility]ITALNCLIA [id number] [place] [address] [place] PSA SerPl-mCncon 03-17-2024 Prostate specific Ag [Mass/Vol] ng/mL Normal <2.60 [facility] Comment on above: Order Comment: Speci men Type: BLOOD SPECIMENOrdering Facility: [facility] Address: [address] [place] [address] Result Comment: Tota l PSA test methodology used is the Electrochemiluminescence Immunoassay by [employer]. Total PSA values by differing methodologies cannot be interchanged. Performed By: #### 2 857-1 ####[facility] LABCLIA [id number] [place] [address] [place] CNTHERAPYon 03-16-2024 CNTHERAPY OT/PT/Speech Visit ([facility]) -- LUTHER CASTILLO ([id number]) 1955 M Date Time Provider Department 03/16/24 2:00 PM JULIANO MAGAÑA [facility] Date Time Provider Department [place] 03/16/2024 2:00 PM [id number], [facility] Reason for Visit: Physical Therapy [503] Primary Visit Diagnosis:Left hip pain [M25.552] Other Visit Diagnoses:Radiculopathy, lumbar region [M54.16] Decreased ROM of lumbar spine [M53.86] Weakness of trunk musculature [M62.81] Allergies As of Date: 03/16/2024 Noted Allergy Reaction RAGWEED POLLEN 06/11/2023 14 - Other: See Comments Comments: Watering/itchy eyes Date Reviewed: 02/23/2024 Reviewed by: Lyn Méndez MA - Fully Assessed Prescriptions as of 03/16/2024 - atorvastatin (LIPITOR) 20 mg tablet Take 1 tablet by mouth daily at bedtime. For cholesterol. - predniSONE (DELTASONE) 5 mg tablet TAKE 1 TABLET BY MOUTH TWICE DAILY - cyclobenzaprine (FLEXERIL) 10 mg tablet Take 1 tablet by mouth two times a day as needed for muscle spasm. - dexAMETHasone (DECADRON) 4 mg tablet Take 1 tablet by mouth daily with breakfast. Take on mornings of injections - tamsulosin (FLOMAX) 0.4 mg Take 1 capsule by mouth once daily. - darbepoetin dagmar in albumn john (ARANESP INJECTION) by INJECTION(UNSPECIFIED PARENTERAL ROUTES) route every 4 weeks. PRN - abiraterone 250 mg tablet TAKE 4 TABLETS (1,000MG) BY MOUTH ONCE DAILY ON AN EMPTY STOMACH 1 HOUR BEFORE OR 2 HOURS AFTER A MEAL - cimetidine (TAGAMET) 200 mg tablet Take 200 mg by mouth twice daily. - calcium carbonate/vitamin D3 (CALCIUM + D ORAL) Take 1 tablet by mouth twice daily. - leuprolide acetate (ELIGARD SUBCUTANEOUS) Inject subcutaneously once every 6 months. - denosumab (XGEVA SUBCUTANEOUS) Inject subcutaneously once every month. - iv contrast (will be provided with radiology test) MRI Prostate Inject, intravenously, once for 1 dose. No IV access, insert saline lock prior to the beginning of sedation, infusion, injection of imaging exam. Discontinue saline lock post exam. If Pt. has a central line or IVAD, may access for administration according to line specific nursing protocol. Once exam is complete flush line and de-access according to line specific nursing protocol in the MR contrast administration guidelines link. [facility] CNOVon 03-10-2024 CNOV Normal [facility] CNTHERAPYon 03-09-2024 CNTHERAPY OT/PT/Speech Visit ([facility]) -- LUTHER CASTILLO ([id number]) 1955 M Date Time Provider Department 03/09/24 2:45 PM JOSE DAVID CEDENO [facility] Date Time Provider Department Center 03/09/2024 2:45 PM [id number], SHEILA*[facility] Reason for Visit: Physical Therapy [503] Primary Visit Diagnosis:Left hip pain [M25.552] Other Visit Diagnoses:Radiculopathy, lumbar region [M54.16] Decreased ROM of lumbar spine [M53.86] Weakness of trunk musculature [M62.81] Allergies As of Date: 03/09/2024 Noted Allergy Reaction RAGWEED POLLEN 06/11/2023 14 - Other: See Comments Comments: Watering/itchy eyes Date Reviewed: 02/23/2024 Reviewed by: Lyn Méndez MA - Fully Assessed Prescriptions as of 03/09/2024 - predniSONE (DELTASONE) 5 mg tablet TAKE 1 TABLET BY MOUTH TWICE DAILY - cyclobenzaprine (FLEXERIL) 10 mg tablet Take 1 tablet by mouth two times a day as needed for muscle spasm. - dexAMETHasone (DECADRON) 4 mg tablet Take 1 tablet by mouth daily with breakfast. Take on mornings of injections - tamsulosin (FLOMAX) 0.4 mg Take 1 capsule by mouth once daily. - darbepoetin dagmar in albumn john (ARANESP INJECTION) by INJECTION(UNSPECIFIED PARENTERAL ROUTES) route every 4 weeks. PRN - abiraterone 250 mg tablet TAKE 4 TABLETS (1,000MG) BY MOUTH ONCE DAILY ON AN EMPTY STOMACH 1 HOUR BEFORE OR 2 HOURS AFTER A MEAL - atorvastatin (LIPITOR) 20 mg tablet Take 1 tablet by mouth daily at bedtime. For cholesterol. - cimetidine (TAGAMET) 200 mg tablet Take 200 mg by mouth twice daily. - calcium carbonate/vitamin D3 (CALCIUM + D ORAL) Take 1 tablet by mouth twice daily. - leuprolide acetate (ELIGARD SUBCUTANEOUS) Inject subcutaneously once every 6 months. - denosumab (XGEVA SUBCUTANEOUS) Inject subcutaneously once every month. - iv contrast (will be provided with radiology test) MRI Prostate Inject, intravenously, once for 1 dose. No IV access, insert saline lock prior to the beginning of sedation, infusion, injection of imaging exam. Discontinue saline lock post exam. If Pt. has a central line or IVAD, may access for administration according to line specific nursing protocol. Once exam is complete flush line and de-access according to line specific nursing protocol in the MR contrast administration guidelines link. [facility] CNTHERAPYon 03-02-2024 CNTHERAPY OT/PT/Speech Visit ([facility]) -- LUTHER CASTILLO ([id number]) 1955 M Date Time Provider Department 03/02/24 2:45 PM [facility] Date [facility] Provider Department Center 03/02/2024 2:45 PM [id number], [facility] M Reason for Visit: Physical Therapy [503] Primary Visit Diagnosis:Left hip pain [M25.552] Other Visit Diagnoses:Radiculopathy, lumbar region [M54.16] Decreased ROM of lumbar spine [M53.86] Weakness of trunk musculature [M62.81] Allergies As of Date: 03/02/2024 Noted Allergy Reaction RAGWEED POLLEN 06/11/2023 14 - Other: See Comments Comments: Watering/itchy eyes Date Reviewed: 02/23/2024 Reviewed by: Lyn Méndez MA - Fully Assessed Prescriptions as of 03/02/2024 - predniSONE (DELTASONE) 5 mg tablet TAKE 1 TABLET BY MOUTH TWICE DAILY - cyclobenzaprine (FLEXERIL) 10 mg tablet Take 1 tablet by mouth two times a day as needed for muscle spasm. - dexAMETHasone (DECADRON) 4 mg tablet Take 1 tablet by mouth daily with breakfast. Take on mornings of injections - tamsulosin (FLOMAX) 0.4 mg Take 1 capsule by mouth once daily. - darbepoetin dagmar in albumn john (ARANESP INJECTION) by INJECTION(UNSPECIFIED PARENTERAL ROUTES) route every 4 weeks. PRN - abiraterone 250 mg tablet TAKE 4 TABLETS (1,000MG) BY MOUTH ONCE DAILY ON AN EMPTY STOMACH 1 HOUR BEFORE OR 2 HOURS AFTER A MEAL - atorvastatin (LIPITOR) 20 mg tablet Take 1 tablet by mouth daily at bedtime. For cholesterol. - cimetidine (TAGAMET) 200 mg tablet Take 200 mg by mouth twice daily. - calcium carbonate/vitamin D3 (CALCIUM + D ORAL) Take 1 tablet by mouth twice daily. - leuprolide acetate (ELIGARD SUBCUTANEOUS) Inject subcutaneously once every 6 months. - denosumab (XGEVA SUBCUTANEOUS) Inject subcutaneously once every month. - iv contrast (will be provided with radiology test) MRI Prostate Inject, intravenously, once for 1 dose. No IV access, insert saline lock prior to the beginning of sedation, infusion, injection of imaging exam. Discontinue saline lock post exam. If Pt. has a central line or IVAD, may access for administration according to line specific nursing protocol. Once exam is complete flush line and de-access according to line specific nursing protocol in the MR contrast administration guidelines link. [facility] CItyHERAPYon 02-27-2024 CNTHERAPY OT/PT/Speech Visit ([facility]) -- LUTHER CASTILLO ([id number]) 1955 M Date Time Provider Department 02/27/24 11:45 AM ROSEANNA HUGHES [facility] Date Time Provider Department Center 02/27/2024 11:45 AM [id number], AMBER M [facility] M Reason for Visit: Physical Therapy [503] Primary Visit Diagnosis:Left hip pain [M25.552] Other Visit Diagnoses:Radiculopathy, lumbar region [M54.16] Decreased ROM of lumbar spine [M53.86] Weakness of trunk musculature [M62.81] Allergies As of Date: 02/27/2024 Noted Allergy Reaction RAGWEED POLLEN 06/11/2023 14 - Other: See Comments Comments: Watering/itchy eyes Date Reviewed: 02/23/2024 Reviewed by: yLn Méndez MA - Fully Assessed Prescriptions as of 02/27/2024 - predniSONE (DELTASONE) 5 mg tablet TAKE 1 TABLET BY MOUTH TWICE DAILY - cyclobenzaprine (FLEXERIL) 10 mg tablet Take 1 tablet by mouth two times a day as needed for muscle spasm. - dexAMETHasone (DECADRON) 4 mg tablet Take 1 tablet by mouth daily with breakfast. Take on mornings of injections - tamsulosin (FLOMAX) 0.4 mg Take 1 capsule by mouth once daily. - darbepoetin dagmar in [place] john (ARANESP INJECTION) by INJECTION(UNSPECIFIED PARENTERAL ROUTES) route every 4 weeks. PRN - abiraterone 250 mg tablet TAKE 4 TABLETS (1,000MG) BY MOUTH ONCE DAILY ON AN EMPTY STOMACH 1 HOUR BEFORE OR 2 HOURS AFTER A MEAL - atorvastatin (LIPITOR) 20 mg tablet Take 1 tablet by mouth daily at bedtime. For cholesterol. - cimetidine (TAGAMET) 200 mg tablet Take 200 mg by mouth twice daily. - calcium carbonate/vitamin D3 (CALCIUM + D ORAL) Take 1 tablet by mouth twice daily. - leuprolide acetate (ELIGARD SUBCUTANEOUS) Inject subcutaneously once every 6 months. - denosumab (XGEVA SUBCUTANEOUS) Inject subcutaneously once every month. - iv contrast (will be provided with radiology test) MRI Prostate Inject, intravenously, once for 1 dose. No IV access, insert saline lock prior to the beginning of sedation, infusion, injection of imaging exam. Discontinue saline lock post exam. If Pt. has a central line or IVAD, may access for administration according to line specific nursing protocol. Once exam is complete flush line and de-access according to line specific nursing protocol in the MR contrast administration guidelines link. [facility] CNPNon 02-25-2024 CNPN [facility] CNTHERAPYon 02-25-2024 CNTHERAPY OT/PT/Speech Visit ([facility]) -- LUTHER CASTILLO ([id number]) 1955 M Date Time Provider Department 02/25/24 11:00 AM ENDY CURRAN [facility] Date Time Provider Department Center 02/25/2024 11:00 AM [id number], CYNTHIA*[facility] Reason for Visit: PT Progress Note [7966] Primary Visit Diagnosis:Left hip pain [M25.552] Other Visit Diagnoses:Radiculopathy, lumbar region [M54.16] Decreased ROM of lumbar spine [M53.86] Weakness of trunk musculature [M62.81] Allergies As of Date: 02/25/2024 Noted Allergy Reaction RAGWEED POLLEN 06/11/2023 14 - Other: See Comments Comments: Watering/itchy eyes Date Reviewed: 02/23/2024 Reviewed by: Lyn Méndez MA - Fully Assessed Prescriptions as of 03/08/2024 - predniSONE (DELTASONE) 5 mg tablet TAKE 1 TABLET BY MOUTH TWICE DAILY - cyclobenzaprine (FLEXERIL) 10 mg tablet Take 1 tablet by mouth two times a day as needed for muscle spasm. - dexAMETHasone (DECADRON) 4 mg tablet Take 1 tablet by mouth daily with breakfast. Take on mornings of injections - tamsulosin (FLOMAX) 0.4 mg Take 1 capsule by mouth once daily. - darbepoetin dagmar in albumn john (ARANESP INJECTION) by INJECTION(UNSPECIFIED PARENTERAL ROUTES) route every 4 weeks. PRN - abiraterone 250 mg tablet TAKE 4 TABLETS (1,000MG) BY MOUTH ONCE DAILY ON AN EMPTY STOMACH 1 HOUR BEFORE OR 2 HOURS AFTER A MEAL - atorvastatin (LIPITOR) 20 mg tablet Take 1 tablet by mouth daily at bedtime. For cholesterol. - cimetidine (TAGAMET) 200 mg tablet Take 200 mg by mouth twice daily. - calcium carbonate/vitamin D3 (CALCIUM + D ORAL) Take 1 tablet by mouth twice daily. - leuprolide acetate (ELIGARD SUBCUTANEOUS) Inject subcutaneously once every 6 months. - denosumab (XGEVA SUBCUTANEOUS) Inject subcutaneously once every month. - iv contrast (will be provided with radiology test) MRI Prostate Inject, intravenously, once for 1 dose. No IV access, insert saline lock prior to the beginning of sedation, infusion, injection of imaging exam. Discontinue saline lock post exam. If Pt. has a central line or IVAD, may access for administration according to line specific nursing protocol. Once exam is complete flush line and de-access according to line specific nursing protocol in the MR contrast administration guidelines link. Letter Text Letter Text [facility] CNOVon 02-23-2024 CNOV Normal [facility] CNTHERAPYon 02-20-2024 CNTHERAPY OT/PT/Speech Visit ([facility]) -- LUTHER CASTILLO ([id number]) 1955 M Date Time Provider Department 02/20/24 11:45 AM JOSE DAVID CEDENO [facility] Date Time Provider Department Center 02/20/2024 11:45 AM [id number], SHEILA*[facility] M Reason for Visit: Physical Therapy [503] Primary Visit Diagnosis:Left hip pain [M25.552] Other Visit Diagnoses:Radiculopathy, lumbar region [M54.16] Decreased ROM of lumbar spine [M53.86] Weakness of trunk musculature [M62.81] Allergies As of Date: 02/20/2024 Noted Allergy Reaction RAGWEED POLLEN 06/11/2023 14 - Other: See Comments Comments: Watering/itchy eyes Date Reviewed: 02/18/2024 Reviewed by: Lorin Zhang LPN - Fully Assessed Prescriptions as of 02/20/2024 - predniSONE (DELTASONE) 5 mg tablet TAKE 1 TABLET BY MOUTH TWICE DAILY - cyclobenzaprine (FLEXERIL) 10 mg tablet Take 1 tablet by mouth two times a day as needed for muscle spasm. - dexAMETHasone (DECADRON) 4 mg tablet Take 1 tablet by mouth daily with breakfast. Take on mornings of injections - tamsulosin (FLOMAX) 0.4 mg Take 1 capsule by mouth once daily. - darbepoetin dagmar in albumn john (ARANESP INJECTION) by INJECTION(UNSPECIFIED PARENTERAL ROUTES) route every 4 weeks. PRN - abiraterone 250 mg tablet TAKE 4 TABLETS (1,000MG) BY MOUTH ONCE DAILY ON AN EMPTY STOMACH 1 HOUR BEFORE OR 2 HOURS AFTER A MEAL - atorvastatin (LIPITOR) 20 mg tablet Take 1 tablet by mouth daily at bedtime. For cholesterol. - cimetidine (TAGAMET) 200 mg tablet Take 200 mg by mouth twice daily. - calcium carbonate/vitamin D3 (CALCIUM + D ORAL) Take 1 tablet by mouth twice daily. - leuprolide acetate (ELIGARD SUBCUTANEOUS) Inject subcutaneously once every 6 months. - denosumab (XGEVA SUBCUTANEOUS) Inject subcutaneously once every month. - iv contrast (will be provided with radiology test) MRI Prostate Inject, intravenously, once for 1 dose. No IV access, insert saline lock prior to the beginning of sedation, infusion, injection of imaging exam. Discontinue saline lock post exam. If Pt. has a central line or IVAD, may access for administration according to line specific nursing protocol. Once exam is complete flush line and de-access according to line specific nursing protocol in the MR contrast administration guidelines link. Normal [facility] Basic metabolic 2000 panelon 02-18-2024 Anion gap [Moles/Vol] 9 mmol/L Normal 8-15 [facility] Comment on above: Order Comment: Speci men Type: BLOOD SPECIMENOrdering Facility: [facility] Address: [address] [place] [address] Performed By: #### 2 4321-2 ####[facility] MILLTOWNCLIA [id number] [place] [address] [place] Calcium [Mass/Vol] 9.2 mg/dL Normal 8.5-10.2 [facility] Comment on above: Order Comment: Speci men Type: BLOOD SPECIMENOrdering Facility: [facility] Address: [address] [place] [address] Performed By: #### 2 4321-2 ####[facility] MILLTOWNCLIA [id number] [place] [address] [place] Chloride [Moles/Vol] 105 mmol/L Normal 98-107 [facility] Comment on above: Order Comment: Speci men Type: BLOOD SPECIMENOrdering Facility: [facility] Address: [address] [place] [address] Performed By: #### 2 4321-2 ####[facility] MILLTOWNCLIA [id number] [place] [address] [place] CO2 [Moles/Vol] 25 mmol/L Normal 22-30 [facility] Comment on above: Order Comment: Speci men Type: BLOOD SPECIMENOrdering Facility: [facility] Address: [address] [place], [place] [address] Performed By: #### 2 4321-2 ####[facility] MILLTOWNCLIA [id number] [place] [address] [place] Creatinine [Mass/Vol] 0.90 mg/dL Normal 0.73-1.22 [facility] Comment on above: Order Comment: Bassam hong Type: BLOOD SPECIMENOrdering Facility: [facility] Address: [address] [place] [address] Performed By: #### 2 4321-2 ####[facility] [id number] [place] [address] [place] [facility] [place] Creatinine and Glomerular filtration rate.predicted panel (S/P/Bld) 92 mL/min/1.73m??? Normal >=60 [facility] Comment on above: Order Comment: Bassam hong Type: BLOOD SPECIMENOrdering Facility: [facility] Address: [address] [place] [address] Result Comment: Beth mated Glomerular Filtration Rate (eGFR) is calculated using the 2020 CKD-EPI creatinine equation. This equation utilizes serum creatinine, sex, and age as parameters. The creatinine assay has traceable calibration to isotope dilution-mass spectrometry. Refer to KDIGO guidelines for clinical interpretation. In patients with unstable renal function, e.g. those with acute kidney injury, the eGFR may not accurately reflect actual GFR. Performed By: #### 2 4321-2 ####[facility] [id number] [place] [address] [place] Glucose [Mass/Vol] 189 mg/dL High 74-99 [facility] Comment on above: Order Comment: Bassam hong Type: BLOOD SPECIMENOrdering Facility: [facility] Address: [address] [place] [address] Result Comment: The [place] Diabetes Association (ADA) provides guidance for cutoff values for fasting glucose and random glucose. The ADA defines fasting as no caloric intake for at least 8 hours. Fasting plasma glucose results between 100 to 125 mg/dL indicate increased risk for diabetes (prediabetes).Fasting plasma glucose results greater than or equal to 126 mg/dL meet the criteria for diagnosis of diabetes. In the absence of unequivocal hyperglycemia, results should be confirmed by repeat testing. In a patient with classic symptoms of hyperglycemia or hyperglycemic crisis, random plasma glucose results greater than or equal to 200 mg/dL meet the criteria for diagnosis of diabetes.Reference: Standards of Medical Care in Diabetes 2016, [place] Diabetes Association. Diabetes Care. 2016.39(Suppl 1). Performed By: #### 2 4321-2 ####[facility] [id number] [place] [address] [place] Potassium [Moles/Vol] 3.7 mmol/L Normal 3.7-5.1 [facility] Comment on above: Order Comment: Speci men Type: BLOOD SPECIMENOrdering Facility: [facility] Address: [address] [place] [address] Performed By: #### 2 4321-2 ####[facility] [id number] [place] [address] [place] Sodium [Moles/Vol] 139 mmol/L Normal 136-144 [facility] Comment on above: Order Comment: Jose Manueli hal Type: BLOOD SPECIMENOrdering Facility: [facility] Address: [address] [place] [address] Performed By: #### 2 4321-2 ####[facility] [id number] [place] [address] [place] Urea nitrogen [Mass/Vol] 25 mg/dL High 9-24 [facility] Comment on above: Order Comment: Jose Manueli men Type: BLOOD SPECIMENOrdering Facility: [facility] Address: [address] [place] [address] Performed By: #### 2 4321-2 ####[facility] [id number] [place] [address] [place] CBC W Auto Differential pane l (Bld)on 02-18-2024 Basophils (Bld) [#/Vol] 10*3/uL Normal <0.11 [facility] Comment on above: Order Comment: Speci men Type: BLOOD SPECIMENOrdering Facility: [facility] Address: [address] [place] [address] Performed By: #### 5 7021-8 ####[facility] BIENVENIDOWNCLIA [id number] [place] [address] [place] Basophils/100 WBC (Bld) 0.2 % Normal [facility] Comment on above: Order Comment: Speci men Type: BLOOD SPECIMENOrdering Facility: [facility] Address: [address] [place] [address] Performed By: #### 5 7021-8 ####[facility] H[facility]ITALLIA [id number] [place] [address] [place] Differential cell count method Nom (Bld) Auto Normal [facility] Comment on above: Order Comment: Speci men Type: BLOOD SPECIMENOrdering Facility: [facility] Address: [address] [place] [address] Performed By: #### 5 7021-8 ####[facility] HOSPITALL[facility] [id number] [place] [address] [place] Eosinophils (Bld) [#/Vol] 0.18 10*3/uL Normal <0.46 [facility] Comment on above: Order Comment: Speci men Type: BLOOD SPECIMENOrdering Facility: [facility] Address: [address] [place] [address] Performed By: #### 5 7021-8 ####[facility] [id number] [place] [address] [place] Eosinophils/100 WBC (Bld) 2.9 % Normal [facility] Comment on above: Order Comment: Speci men Type: BLOOD SPECIMENOrdering Facility: [facility] Address: [address] [place] [address] Performed By: #### 5 7021-8 ####[facility]ITALNCLIA [id number] [place] [address] [place] Erythrocyte distribution width (RBC) [Ratio] 20.1 % High 11.5-15.0 [facility] Comment on above: Order Comment: Speci men Type: BLOOD SPECIMENOrdering Facility: [facility] Address: [address] [place] [address] Performed By: #### 5 7021-8 ####[facility] [id number] [place] [address] [place] Hematocrit (Bld) [Volume fraction] 29.1 % Low 39.0-51.0 [facility] Comment on above: Order Comment: Speci men Type: BLOOD SPECIMENOrdering Facility: [facility] Address: [address] [place] [address] Performed By: #### 5 7021-8 ####[facility] [id number] [place] [address] [place] Hemoglobin (Bld) [Mass/Vol] 8.9 g/dL Low 13.0-17.0 [facility] Comment on above: Order Comment: Speci men Type: BLOOD SPECIMENOrdering Facility: [facility] Address: [address] [place] [address] Performed By: #### 5 7021-8 ####[facility] [id number] [place] [address] [place] Immature granulocytes (Bld) [#/Vol] 0.03 10*3/uL Normal <0.10 [facility] Comment on above: Order Comment: Speci men Type: BLOOD SPECIMENOrdering Facility: [facility] Address: [address] [place] [address] Performed By: #### 5 7021-8 ####[facility] [id number] [place] [address] [place] Immature granulocytes/100 WBC (Bld) 0.5 % Normal [facility] Comment on above: Order Comment: Speci men Type: BLOOD SPECIMENOrdering Facility: [facility] Address: [address] [place] [address] Performed By: #### 5 7021-8 ####[facility] BIENVENIDOESTHER [id number] [place] [address] [place] Lymphocytes (Bld) [#/Vol] 1.81 10*3/uL Normal 1.00-4.00 [facility] Comment on above: Order Comment: Speci men Type: BLOOD SPECIMENOrdering Facility: [facility] Address: [address] [place] [address] Performed By: #### 5 7021-8 ####[facility] H[facility]ITALANGELICAA [id number] [place] [address] [place] Lymphocytes/100 WBC (Bld) 29.4 % Normal [facility] Comment on above: Order Comment: Speci men Type: BLOOD SPECIMENOrdering Facility: [facility] Address: [address] [place] [address] Performed By: #### 5 7021-8 ####[facility] HOSPITALHEAVENA [id number] [place] [address] [place] MCH (RBC) [Entitic mass] 24.9 pg Low 26.0-34.0 [facility] Comment on above: Order Comment: Speci men Type: BLOOD SPECIMENOrdering Facility: [facility] Address: [address] [place] [address] Performed By: #### 5 7021-8 ####[facility]ITALNCLIA [id number] [place] [address] [place] MCHC (RBC) [Mass/Vol] 30.6 g/dL Normal 30.5-36.0 [facility] Comment on above: Order Comment: Speci men Type: BLOOD SPECIMENOrdering Facility: [facility] Address: [address] [place] [address] Performed By: #### 5 7021-8 ####[facility] MILLWNCLIA [id number] [place] [address] [place] MCV (RBC) [Entitic vol] 81.3 fL Normal 80.0-100.0 [facility] Comment on above: Order Comment: Speci men Type: BLOOD SPECIMENOrdering Facility: [facility] Address: [address] [place] [address] Performed By: #### 5 7021-8 ####[facility] HOSPITALL[facility] [id number] [place] [address] [place] Monocytes (Bld) [#/Vol] 0.33 10*3/uL Normal <0.87 [facility] Comment on above: Order Comment: Speci men Type: BLOOD SPECIMENOrdering Facility: [facility] Address: [address] [place] [address] Performed By: #### 5 7021-8 ####[facility] [id number] [place] [address] [place] Monocytes/100 WBC (Bld) 5.4 % Normal [facility] Comment on above: Order Comment: Speci men Type: BLOOD SPECIMENOrdering Facility: [facility] Address: [address] [place] [address] Performed By: #### 5 7021-8 ####[facility]PITALANGELICALIA [id number] [place] [address] [place] Neutrophils (Bld) [#/Vol] 3.79 10*3/uL Normal 1.45-7.50 [facility] Comment on above: Order Comment: Speci men Type: BLOOD SPECIMENOrdering Facility: [facility] Address: [address] [place] [address] Performed By: #### 5 7021-8 ####[facility] [id number] [place] [id number] [place] Neutrophils/100 WBC (Bld) 61.6 % Normal [facility] Comment on above: Order Comment: Speci men Type: BLOOD SPECIMENOrdering Facility: [facility] Address: [address] [place] [address] Performed By: #### 5 7021-8 ####[facility] [id number] [place] [address] [place] Nucleated RBC (Bld) [#/Vol] 10*3/uL Normal <0.01 [facility] Comment on above: Order Comment: Speci men Type: BLOOD SPECIMENOrdering Facility: [facility] Address: [address] [place] [address] Performed By: #### 5 7021-8 ####[facility] [id number] [place] [address] [place] Nucleated RBC/100 WBC (Bld) [Ratio] 0.0 /100 WBC Normal [facility] Comment on above: Order Comment: Speci men Type: BLOOD SPECIMENOrdering Facility: [facility] Address: [address] [place] [address] Performed By: #### 5 7021-8 ####[facility] H[facility]PITALNCLI [id number] [place] [address] [place] Platelet mean volume (Bld) [Entitic vol] 8.3 fL Low 9.0-12.7 [facility] Comment on above: Order Comment: Speci men Type: BLOOD SPECIMENOrdering Facility: [facility] Address: [address] [place] [address] Performed By: #### 5 7021-8 ####[facility] [id number] [place] [address] [place] Platelets (Bld) [#/Vol] 191 10*3/uL Normal 150-400 [facility] Comment on above: Order Comment: Speci men Type: BLOOD SPECIMENOrdering Facility: [facility] Address: [address] [place] [address] Performed By: #### 5 7021-8 ####[facility]ITALNCLIA [id number] [place] [address] [place] RBC (Bld) [#/Vol] 3.58 10*6/uL Low 4.20-6.00 [facility] Comment on above: Order Comment: Speci men Type: BLOOD SPECIMENOrdering Facility: [facility] Address: [address] [place] [address] Performed By: #### 5 7021-8 ####[facility]ITALNCLIA [id number] [place] [address] [place] WBC (Bld) [#/Vol] 6.15 10*3/uL Normal 3.70-11.00 [facility] Comment on above: Order Comment: Speci men Type: BLOOD SPECIMENOrdering Facility: [facility] Address: [address] [place] [address] Performed By: #### 5 7021-8 ####[facility]ITALNCLIA [id number] [place] [address] [place] CNTHERAPYon 02-18-2024 CNTHERAPY OT/PT/Speech Visit ([facility]) -- LUTHER CASTILLO ([id number]) 1955 Tracee Date Time Provider Department 02/18/24 1:15 PM ROSEANNA HUGHES [facility] Date Time Provider Department Center 02/18/2024 1:15 PM [id number], AMBER M [facility] M Reason for Visit: Physical Therapy [503] Primary Visit Diagnosis:Left hip pain [M25.552] Other Visit Diagnoses:Radiculopathy, lumbar region [M54.16] Decreased ROM of lumbar spine [M53.86] Weakness of trunk musculature [M62.81] Allergies As of Date: 02/18/2024 Noted Allergy Reaction RAGWEED POLLEN 06/11/2023 14 - Other: See Comments Comments: Watering/itchy eyes Date Reviewed: 02/18/2024 Reviewed by: Lorni Zhang LPN - Fully Assessed Prescriptions as of 02/18/2024 - predniSONE (DELTASONE) 5 mg tablet TAKE 1 TABLET BY MOUTH TWICE DAILY - cyclobenzaprine (FLEXERIL) 10 mg tablet Take 1 tablet by mouth two times a day as needed for muscle spasm. - dexAMETHasone (DECADRON) 4 mg tablet Take 1 tablet by mouth daily with breakfast. Take on mornings of injections - tamsulosin (FLOMAX) 0.4 mg Take 1 capsule by mouth once daily. - darbepoetin dagmar in albumn john (ARANESP INJECTION) by INJECTION(UNSPECIFIED PARENTERAL ROUTES) route every 4 weeks. PRN - abiraterone 250 mg tablet TAKE 4 TABLETS (1,000MG) BY MOUTH ONCE DAILY ON AN EMPTY STOMACH 1 HOUR BEFORE OR 2 HOURS AFTER A MEAL - atorvastatin (LIPITOR) 20 mg tablet Take 1 tablet by mouth daily at bedtime. For cholesterol. - cimetidine (TAGAMET) 200 mg tablet Take 200 mg by mouth twice daily. - calcium carbonate/vitamin D3 (CALCIUM + D ORAL) Take 1 tablet by mouth twice daily. - leuprolide acetate (ELIGARD SUBCUTANEOUS) Inject subcutaneously once every 6 months. - denosumab (XGEVA SUBCUTANEOUS) Inject subcutaneously once every month. - iv contrast (will be provided with radiology test) MRI Prostate Inject, intravenously, once for 1 dose. No IV access, insert saline lock prior to the beginning of sedation, infusion, injection of imaging exam. Discontinue saline lock post exam. If Pt. has a central line or IVAD, may access for administration according to line specific nursing protocol. Once exam is complete flush line and de-access according to line specific nursing protocol in the MR contrast administration guidelines link. [facility] CBC W/Diff, Automatedon 11-4 Anisocytosis Ql (Bld) 1+ Normal [facility] Comment on above: Performed By: #### L 100.0100 #### [facility] [address] [place], [address] Surgery Visit Reporton 02-15 Surgery Visit Report [facility] [address] [place] [address] OFFICE VISIT Date of Service: 02/16/24 MR#: [id number] Acct: [id number] Name: LUTHER CASTILLO II Rep #: [id number] : 1955 Provider: JENNY march Age/Sex: 68/M Location: [facility] Status: Signed Intake Vital Signs 02/05/24 18:37 Height 5 ft 8 in Intake Visit Reasons: APPENDECTOMY DOS 02/04 Chief Complaint: appendectomy DOS 02/04 Accompanied by: Is patient in pain?: No Allergies No Known Allergies Allergy (Verified 02/16/24 14:03) Medications ???Medication ???Instructions ???Recorded ???Confirmed ???Type abiraterone 250 mg tablet 1,000 mg PO DAILY prostate cancer 12/11/23 02/16/24 History atorvastatin 20 mg tablet 20 mg PO DAILY cholesterol 12/11/23 02/16/24 History prednisone 5 mg tablet 5 mg PO BID prostate 12/11/23 02/16/24 History tamsulosin 0.4 mg capsule 0.4 mg PO DAILY prostate 12/11/23 02/16/24 History cimetidine 200 mg tablet (Tagamet 200 mg PO BID 02/05/24 02/16/24 History HB) denosumab 120 mg/1.7 mL (70 mg/mL) 120 mg subcut .monthly 02/05/24 02/16/24 History subcutaneous solution (Xgeva) leuprolide acetate (6 month) 45 mg mg subcut 02/05/24 02/16/24 History (6 month) subcutaneous syringe (Eligard) Have you fallen in the past year?: No Subjective Details: Patient is a 68 y/o M I am following s/p laparoscopic appendectomy by Dr. Crawford on 02/05/24. Patient tolerated the procedure well. Patient denies any incisional pain/discomfort or RLQ pain. He denies any nausea, vomiting, fever since the procedure. He notes appetite has returned to normal. He notes some constipation since surgery. Pathology demonstrated acute appendicitis and periappendicitis. Peritoneal fluid returned negative for malignant cells. Noted for acute inflammation. Objective Details: Abdomen- incisions c/d/i. No erythema or infection noted. non-tender to palpation. Coding Level of Care Code Global Post Op Diagnoses Status post laparoscopic appendectomy Z90.49 [facility] Social History Smoking Status: Never smoker Assessment and Plan (No Qualifiers) Assessment and Plan (1) Status post laparoscopic appendectomy: Status: Acute Plan: We reviewed patient's follow-up Hgb which has increased since discharge. Patient denies any symptoms associated with Hgb i.e. dizziness, lightheadedness, weakness, etc. No repeat lab work needed at this time Recommend no strenuous activity for 2 additional weeks Follow-up as needed 02/16/24 1447 Date Derrek Tarango Signature: Date (if applicable) CC: Dr. López Ocampo MD; Dr. Rohit Crawford MD [facility] CNTHERAPYon 02-13-2024 CNTHERAPY OT/PT/Speech Visit ([facility]) -- LUTHER CASTILLO ([id number]) 1955 M Date Time Provider Department 02/13/24 11:45 AM ROSEANNA HUGHES [facility] Date Time Provider Department [place] 02/13/2024 11:45 AM [id number], AMBER M [facility] Reason for Visit: Physical Therapy [503] Primary Visit Diagnosis:Left hip pain [M25.552] Other Visit Diagnoses:Radiculopathy, lumbar region [M54.16] Decreased ROM of lumbar spine [M53.86] Weakness of trunk musculature [M62.81] Allergies As of Date: 02/13/2024 Noted Allergy Reaction RAGWEED POLLEN 06/11/2023 14 - Other: See Comments Comments: Watering/itchy eyes Date Reviewed: 02/03/2024 Reviewed by: Sienna Avila LPN - Fully Assessed Prescriptions as of 02/13/2024 - predniSONE (DELTASONE) 5 mg tablet TAKE 1 TABLET BY MOUTH TWICE DAILY - cyclobenzaprine (FLEXERIL) 10 mg tablet Take 1 tablet by mouth two times a day as needed for muscle spasm. - dexAMETHasone (DECADRON) 4 mg tablet Take 1 tablet by mouth daily with breakfast. Take on mornings of injections - tamsulosin (FLOMAX) 0.4 mg Take 1 capsule by mouth once daily. - darbepoetin dagmar in albumn john (ARANESP INJECTION) by INJECTION(UNSPECIFIED PARENTERAL ROUTES) route every 4 weeks. PRN - abiraterone 250 mg tablet TAKE 4 TABLETS (1,000MG) BY MOUTH ONCE DAILY ON AN EMPTY STOMACH 1 HOUR BEFORE OR 2 HOURS AFTER A MEAL - atorvastatin (LIPITOR) 20 mg tablet Take 1 tablet by mouth daily at bedtime. For cholesterol. - cimetidine (TAGAMET) 200 mg tablet Take 200 mg by mouth twice daily. - calcium carbonate/vitamin D3 (CALCIUM + D ORAL) Take 1 tablet by mouth twice daily. - leuprolide acetate (ELIGARD SUBCUTANEOUS) Inject subcutaneously once every 6 months. - denosumab (XGEVA SUBCUTANEOUS) Inject subcutaneously once every month. - iv contrast (will be provided with radiology test) MRI Prostate Inject, intravenously, once for 1 dose. No IV access, insert saline lock prior to the beginning of sedation, infusion, injection of imaging exam. Discontinue saline lock post exam. If Pt. has a central line or IVAD, may access for administration according to line specific nursing protocol. Once exam is complete flush line and de-access according to line specific nursing protocol in the MR contrast administration guidelines link. [facility] CNTHERAPYon 02-11-2024 CNTHERAPY OT/PT/Speech Visit ([facility]) -- LUTHER CASTILLO ([id number]) 1955 M Date Time Provider Department 02/11/24 11:00 AM ROSEANNA HUGHES [facility] Date Time Provider Department Center 02/11/2024 11:00 AM [id number], AMBER M [facility] M Reason for Visit: Physical Therapy [503] Primary Visit Diagnosis:Left hip pain [M25.552] Other Visit Diagnoses:Radiculopathy, lumbar region [M54.16] Decreased ROM of lumbar spine [M53.86] Weakness of trunk musculature [M62.81] Allergies As of Date: 02/11/2024 Noted Allergy Reaction RAGWEED POLLEN 06/11/2023 14 - Other: See Comments Comments: Watering/itchy eyes Date Reviewed: 02/03/2024 Reviewed by: Sienna Avila LPN - Fully Assessed Prescriptions as of 02/11/2024 - predniSONE (DELTASONE) 5 mg tablet TAKE 1 TABLET BY MOUTH TWICE DAILY - cyclobenzaprine (FLEXERIL) 10 mg tablet Take 1 tablet by mouth two times a day as needed for muscle spasm. - dexAMETHasone (DECADRON) 4 mg tablet Take 1 tablet by mouth daily with breakfast. Take on mornings of injections - tamsulosin (FLOMAX) 0.4 mg Take 1 capsule by mouth once daily. - darbepoetin dagmar in albumn john (ARANESP INJECTION) by INJECTION(UNSPECIFIED PARENTERAL ROUTES) route every 4 weeks. PRN - abiraterone 250 mg tablet TAKE 4 TABLETS (1,000MG) BY MOUTH ONCE DAILY ON AN EMPTY STOMACH 1 HOUR BEFORE OR 2 HOURS AFTER A MEAL - atorvastatin (LIPITOR) 20 mg tablet Take 1 tablet by mouth daily at bedtime. For cholesterol. - cimetidine (TAGAMET) 200 mg tablet Take 200 mg by mouth twice daily. - calcium carbonate/vitamin D3 (CALCIUM + D ORAL) Take 1 tablet by mouth twice daily. - leuprolide acetate (ELIGARD SUBCUTANEOUS) Inject subcutaneously once every 6 months. - denosumab (XGEVA SUBCUTANEOUS) Inject subcutaneously once every month. - iv contrast (will be provided with radiology test) MRI Prostate Inject, intravenously, once for 1 dose. No IV access, insert saline lock prior to the beginning of sedation, infusion, injection of imaging exam. Discontinue saline lock post exam. If Pt. has a central line or IVAD, may access for administration according to line specific nursing protocol. Once exam is complete flush line and de-access according to line specific nursing protocol in the MR contrast administration guidelines link. [employer] Manager: Therapy (PT/OT/Speech/Resp) ID: [id number] 02/11/2024 11:40 AM Author: ROSEANNA HUGHES Signed by ROSEANNA HUGHES 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 on 02/11/2024 at 11:40 AM Document text: Program_ID:[id number] Access Code: [email or web address] URL: [email or web address] Date: 02-11-2024 Prepared By: ENDY CURRAN Program Notes Exercises - Supine Heel Slide - 1 x daily - 7 x weekly - 3 sets - 10 reps - Supine Hip Abduction - 1 x daily - 7 x weekly - 3 sets - 10 reps - Supine March - 1 x daily - 7 x weekly - 3 sets - 10 reps - Seated Long Arc Quad - 1 x daily - 7 x weekly - 3 sets - 10 reps [facility] Culture, Anaerobic Any Sourc binh 02-11-2024 CUAN Collected in OR - Peritoneal Fluid Studies Have Confirmed That B. Fragilis Group are Routinely Susceptible to: Metronidazole, Piperacillin/Tazobactam, Amoxicillin/Clavulanic acid, and Ertapenem. They are showing an increased RESISTANCE to Penicillin, Clindamycin and Moxifloxacin. Bacteroides thetaiotaomicron Bacteroides caccae Normal [facility] Comment on above: Performed By: #### B TS, L300.4310, L300.3900 #### [facility] [address] [place], [place], [id number] THERAPY NTon 02-11-2024 THERAPY NT HNO ID: [id number] Author: ROSEANNA HUGHES PTA Service: ? Author Type: Icd 9 Coder Type: Therapy (PT/OT/Speech/Resp) Filed: 02/11/2024 11:40 Note Text: Program_ID:[id number] Access Code: [email or web address] URL: [email or web address]/ Date: 02-11-2024 Prepared By: ENDY CURRAN Program Notes Exercises - Supine Heel Slide - 1 x daily - 7 x weekly - 3 sets - 10 reps - Supine Hip Abduction - 1 x daily - 7 x weekly - 3 sets - 10 reps - Supine March - 1 x daily - 7 x weekly - 3 sets - 10 reps - Seated Long Arc Quad - 1 x daily - 7 x weekly - 3 sets - [address] [facility] CBC W/Diff, Automatedon 11-0 PATH REV Reviewed Normal [facility] Comment on above: Result Comment: Norm ocytic anemia. MILD Thrombocytopenia. Clinical correlation necessary. Toy Cerrato M.D. 02/09/24 AMENDED REPORT 02/09/24 1420 PATH REV previously reported as: August gallo Performed By: #### B TS, L300.4310, L300.3900 #### [facility] [address] [place], [place], [id number] Wound Cultureon 02-08-2024 WC Collected in OR - Peritoneal Fluid Raoultella planticola Amount Growth 1+ Raoultella planticola: REACTION Ampicillin Islt DAILY Ampicillin+Sulbac Islt DAILY <=2 S ceFAZolin Islt DAILY <=4 S Ciprofloxacin Islt DAILY <=0.25 S Gentamicin Islt DAILY <=1 S levoFLOXacin Islt DAILY <=0.12 S Tobramycin Islt DAILY <=1 S TMP SMX Islt DAILY <=20 S Normal [facility] Comment on above: Performed By: #### B TS, L300.4310, L300.3900 #### [facility] [address] [place], [address] Basic Metabolic Profile (BMP )on 02-06-2024 BUN/CRE 22.5 RATIO High 10-20 [facility] Comment on above: Performed By: #### L 500.2500 #### [facility] [address] [place], [address] CA,Total 7.5 mg/dL Low 8.5-10.1 [facility] Comment on above: Performed By: #### L 500.2500 #### [facility] [address] [place], [address] Chloride [Moles/Vol] 110 mmol/L High 98-107 [facility] Comment on above: Performed By: #### L 500.2500 #### [facility] [address] [place], [address] CO2 [Moles/Vol] 23.0 mmol/L Normal 21.0-32.0 [facility] Comment on above: Performed By: #### L 500.2500 #### [facility] [address] [place], [address] Creatinine [Mass/Vol] 0.93 mg/dL Normal 0.70-1.30 [facility] Comment on above: Result Comment: The validity of the calculated GFR GFRAA in patients over 70 years has not been determined. Clinical correlation is essential. Performed By: #### L 500.2500 #### [facility] [address] [place], [address] ECRCL 70.67 ml/min Normal [facility] Comment on above: Performed By: #### L 500.2500 #### [facility] [address] [place], [address] EST GFR - AA 103 mL/min Normal >60 [facility] Comment on above: Result Comment: Afri can Angolan GFR Calc Performed By: #### L 500.2500 #### [facility] [address] [place], [address] GAP 6 Normal 5-15 [facility] Comment on above: Performed By: #### L 500.2500 #### [facility] [address] [place], [address] GFR/1.73 sq M.predicted among non-blacks MDRD (S/P/Bld) [Vol rate/Area] 85 mL/min/{1.73_m2} Normal >60 [facility] Comment on above: Result Comment: Non- GFR Calc Performed By: #### L 500.2500 #### [facility] [address] [place], [address] Glucose [Mass/Vol] 159 mg/dL High 74-106 [facility] Comment on above: Result Comment: Fast ing Glucose result greater than or equal to 126 mg/dL suggests DIABETES MELLITUS per A.D.A. criteria. Performed By: #### L 500.2500 #### [facility] [address] [place], [address] Potassium [Moles/Vol] 4.0 mmol/L Normal 3.5-5.1 [facility] Comment on above: Performed By: #### L 500.2500 #### [facility] [address] [place], [address] Sodium [Moles/Vol] 138 mmol/L Normal 136-145 [facility] Comment on above: Performed By: #### L 500.2500 #### [facility] [address] [place], [address] Urea nitrogen [Mass/Vol] 21 mg/dL High 7-18 [facility] Comment on above: Performed By: #### L 500.2500 #### [facility] [address] [place], [address] Discharge Instructionon 110 Discharge Instruction [facility] Medical Records Department [address] [place] [address] Instructions for Home/Discharge Instructions 02/06/24 0939 MR#: [id number] Acct: [id number] Name: LUTHER CASTILLO II Rep #: [id number] : 1955 68 From: Rohit Crawford MD PCP: Dr. López Ocampo MD Status:ADM CARLENE Discharge Instructions Diet Discharge Diet: No restrictions Activity Discharge Activity: May Not Drive (No driving while using narcotic pain medication) and May Shower (Postoperative day 1) May shower in (days): 1 Ice area for (Minutes): 20 Lifting Restrictions: No lifting greater than 15 pounds for 2 weeks after surgery Dressing / Incision Call your doctor if your incision/area has: Continuous Slow Oozing, Increased Pain/ Swelling, Increased Redness, Foul Smelling Discharge and Swelling at the incision site Call your doctor if you observe: Fever of 101 or Higher Remove Dressing in: 1 day (Please leave Steri-Strips intact until they fall off spontaneously or are taken off at your follow-up visit) Cleanse incision/area with: Soap Water Follow Up Care Please Follow Up With: Rohit Crawford MD When: 7-10days postop Test Results: Test results from this visit will be discussed in further detail at your follow-up appointment, if applicable. Discharge Plan Admission Admit Date/Time: 02/05/24 13:45 Primary Reason for Your Visit: Acute appendicitis Attending Provider: Rohit Crawford Primary Care Provider: López Ocampo Discharge Orders/Prescriptions Prescriptions: New oxycodone 5 mg Tablet 5 mg PO Q6H PRN PRN (Reason: Pain Score 6-10) 3 Days Qty: 10 0RF Continued cimetidine [Tagamet HB] 200 mg tablet 200 mg PO BID Rx Instructions: administer with meals Eligard (6 month) 45 mg syringe subcut Xgeva 120 mg/1.7 mL (70 mg/mL) solution 120 mg subcut .monthly atorvastatin 20 mg tablet 20 mg PO DAILY prednisone 5 mg tablet 5 mg PO BID tamsulosin 0.4 mg capsule 0.4 mg PO DAILY abiraterone 250 mg tablet 1,000 mg PO DAILY Other Ambulatory Orders: CBC W/Diff, Automated (Routine) Timeframe: 1 Week Facility: [facility] - Location: Laboratory Ordered By: Dr. Rohit Crawford Referrals / Follow Up: López Ocampo MD [Primary Care Provider] - Disposition Disposition (needs filled in before D/C Order can be placed): Home, Self Care 02/06/24 0943 Rohit Crawford MD CC: Dr. López Ocampo MD Signed Normal [facility] Gram Stainon 02-06-2024 GS Collected in OR - Peritoneal Fluid Gram Stain 3+ White Blood Cells No organisms seen Normal [facility] Comment on above: Performed By: #### B TS, L300.4310, L300.3900 #### [facility] [address] [place], [address] HH, Hemoglobin AND Hematocri ton 02-06-2024 Hematocrit (Bld) [Volume fraction] 27.3 % Low 40-54 [facility] Comment on above: Performed By: #### L 100.0600 #### [facility] [address] [place], [address] Hemoglobin (Bld) [Mass/Vol] 7.9 g/dL Low 13.0-16.5 [facility] Comment on above: Performed By: #### L 100.0600 #### [facility] [address] [place], [place], [id number] Special Stain Group IIon Special Stain Group II Patient Age/Sex Location Account Attending Physician LUTHER CASTILLO II 68/M MS3 [id number] Dr. Rohit Crawford MD Specimen: [id number] Received: 02/06/24 Status: SONIYA Watsonlola Num: [id number] Spec Type: Fluid Subm Dr: Dr. Rohit Crawford MD HEADER OPERATION: Not noted PRE-OP DIAGNOSIS: Acute appendicitis TISSUE SUBMITTED: Peritoneal fluid for cytology DIAGNOSIS CYTOLOGY Peritoneal fluid for cytology (cytospin and cellblock): Negative for malignant cells. Acute inflammation. See comment. 02/09/2024 COMMENT Please make reference to additional specimen [id number] appendix, appendectomy with diagnosis of acute appendicitis and periappendicitis. Clinical correlation and appropriate follow up are necessary. CYTOLOGY STUDY Slides are reviewed. CYTOLOGY GROSS Received is 5 ml of yellow-cloudy fluid labeled with the patient's name and and designated per the requisition as Peritoneal fluid. Submitted for cytology preparation including cell block. Mr 02/06/2024 TC:2 CPT: 85067,19005 Signed (signature on file) Dr. Toy Cerrato MD 02/10/24 1156 Normal [facility] Comment on above: Performed By: #### B TS, L300.4310, L300.3900 #### [facility] [address] [place], [address] 12 Lead EKGon 02-05-2024 12 Lead EKG [facility] Cardiovascular Services [address] [place] [address] 12 Lead EKG 02/05/24 1329 MR#: [id number] Acct: [id number] Name: LUTHER CASTILLO II Rep #: [id number] : 1955 68 From: Timmy Sood MD Attending Dr: Dr. Rohit Crawford MD Status: ADM CARLENE Ordering Dr: Ajay Garcia DO Date: 02/05/24 Location: AR3 Sex: M C Admitted: 02/05/24 Test Reason : PREOP Blood Pressure : */* mmHG Vent. Rate : 96 BPM Atrial Rate : 96 BPM P-R Int : 128 ms QRS Dur : 74 ms QT Int : 366 ms P-R-T Axes : 56 -29 57 degrees QTcB Int : 462 ms Normal sinus rhythm Nonspecific T wave abnormality Prolonged QT Abnormal ECG Confirmed by LENIN NUNEZ, TIMMY ([id number]), editorial specialist DERREK PAN ([id number]) on 02/06/2024 8:21:22 AM Referred By: Confirmed By: TIMMY SOOD MD 02/06/24 0821 Date Timmy Sood MD CC: Dr. López Ocampo MD; Dr. Rohit Crawford MD; Dr. Ajay Garcia DO Signed Normal [facility] Abdomen/Pelvis without Conto n 02-05-2024 Abdomen/Pelvis without Cont [facility] Imaging Services [address] [place] [address] Abdomen/Pelvis without Cont MR#: [id number] Acct: [id number] Name: LUTHER CASTILLO II Rep #: [id number] : 1955 M 68 From: Maximo stern MD PCP: Dr. López Ocampo MD Status: REG ER Study: Abdomen/Pelvis without Cont Date of Exam: 01/07 04/30 Exam# [id number] Ordering Dr: Ajay Garcia DO [id number] STUDY: CT ABDOMEN AND PELVIS WITHOUT CONTRAST REASON FOR EXAM: Male, 68 years old. Kidney Stone. Right lower quadrant pain. Painful urination. History of prostate cancer. RADIATION DOSAGE (If Supplied By Facility): CTDIvol = ( 6.72 ) mGy, DLP = ( 347.40 ) mGycm TECHNIQUE: Transaxial images were obtained from the dome of the diaphragm to the symphysis pubis without oral contrast, and without intravenous contrast. Sagittal and coronal images were reconstructed. Individualized dose optimization techniques were used for this CT. COMPARISON: None. FINDINGS: Mild degree of increased linear markings at the lung bases suggestive of scarring. Calcified granuloma in the left lower lobe. Coronary artery calcification. Normal liver. Normal gallbladder and extrahepatic biliary system. Normal spleen. Normal pancreas. Normal bilateral adrenal glands. Normal right kidney. Normal left kidney. There is a mild degree of nonspecific bilateral perinephric stranding. There is a small hiatal hernia. Normal small intestine. There are scattered colonic diverticula consistent with diverticulosis. There is a tubular, thick-walled appendix (>7mm), consistent with acute appendicitis. Inflammatory changes are seen within the mesenteric fat in the right lower quadrant. There is diffuse atherosclerotic calcification of the abdominal aorta and its major visceral branches, without a demonstrated aneurysm. Normal inferior vena cava. Normal retroperitoneum. Normal urinary bladder. Central prostatic calcification. Normal abdominal wall. There are diffuse degenerative changes of the visualized lumbar spine. Levoscoliosis. There is a 1.3 cm heterogeneous sclerotic lesion in the superior aspect of the left iliac bone. There is a 6.9 mm sclerotic focus in the peripheral aspect of the right iliac wing. Scattered sclerotic foci in the lower aspect of the right iliac bone. Sclerotic lesion in the left hemisacrum. Bony metastasis should be ruled out. Sclerotic lesion also seen in the inferior aspect of the left inferior pubic ramus. CT/Abdomen/Pelvis without Cont IMPRESSION: Findings in keeping with acute appendicitis. Linear scarring at the lung bases. Nonspecific mild degree of bilateral perinephric stranding. Electronically Signed: Maximo Krause MD at 12:08 EDT Reading Location ID and State: [address] [place] [address] , Service support , CC: Dr. López Ocampo MD; Dr. Ajay Garcia DO Money Position Officer: Signed Normal [facility] Basic Metabolic Profile (BMP )on 02-05-2024 BUN/CRE 23.4 RATIO High 10-20 [facility] Comment on above: Performed By: #### B TS, L300.4310, L300.3900 #### [facility] [address] [place], [place], [address] CA,Total 9.1 mg/dL Normal 8.5-10.1 [facility] Comment on above: Performed By: #### B TS, L300.4310, L300.3900 #### [facility] [address] [place], [address] Chloride [Moles/Vol] 106 mmol/L Normal 98-107 [facility] Comment on above: Performed By: #### B TS, L300.4310, L300.3900 #### [facility] [address] [place], [address] CO2 [Moles/Vol] 24.0 mmol/L Normal 21.0-32.0 [facility] Comment on above: Performed By: #### B TS, L300.4310, L300.3900 #### [facility] [address] [place], [address] Creatinine [Mass/Vol] 0.98 mg/dL Normal 0.70-1.30 [facility] Comment on above: Result Comment: The validity of the calculated GFR GFRAA in patients over 70 years has not been determined. Clinical correlation is essential. Performed By: #### B TS, L300.4310, L300.3900 #### [facility] [address] [place], [address] ECRCL 67.06 ml/min Normal [facility] Comment on above: Performed By: #### B TS, L300.4310, L300.3900 #### [facility] [address] [place], [address] EST GFR - AA 97 mL/min Normal >60 [facility] Comment on above: Result Comment: Afri can Angolan GFR Calc Performed By: #### B TS, L300.4310, L300.3900 #### [facility] [address] [place], [address] GAP 10 Normal 5-15 [facility] Comment on above: Performed By: #### B TS, L300.4310, L300.3900 #### [facility] [address] [place], [address] GFR/1.73 sq M.predicted among non-blacks MDRD (S/P/Bld) [Vol rate/Area] 80 mL/min/{1.73_m2} Normal >60 [facility] Comment on above: Result Comment: Non- GFR Calc Performed By: #### B TS, L300.4310, L300.3900 #### [facility] [address] [place], [address] Glucose [Mass/Vol] 97 mg/dL Normal 74-106 [facility] Comment on above: Performed By: #### B TS, L300.4310, L300.3900 #### [facility] [address] [place], [address] Potassium [Moles/Vol] 3.6 mmol/L Normal 3.5-5.1 [facility] Comment on above: Performed By: #### B TS, L300.4310, L300.3900 #### [facility] [address] [place], [address] Sodium [Moles/Vol] 140 mmol/L Normal 136-145 [facility] Comment on above: Performed By: #### B TS, L300.4310, L300.3900 #### [facility] [address] [place], [address] Urea nitrogen [Mass/Vol] 23 mg/dL High 7-18 [facility] Comment on above: Performed By: #### B TS, L300.4310, L300.3900 #### [facility] [address] [place], [address] CBC W/Diff, Automatedon 10-3 Anisocytosis Ql (Bld) 2+ Normal [facility] Comment on above: Performed By: #### B TS, L300.4310, L300.3900 #### [facility] [address] [place], [address] HYPOCHROMASIA 1+ Normal [facility] Comment on above: Performed By: #### B TS, L300.4310, L300.3900 #### [facility] [address] [place], [address] OVALOCYTE 2+ Normal [facility] Comment on above: Performed By: #### B TS, L300.4310, L300.3900 #### [facility] [address] [place], [address] PLT EST ADEQUATE Normal ADEQ [facility] Comment on above: Performed By: #### B TS, L300.4310, L300.3900 #### [facility] [address] [place], [address] POLYCHROMASIA 1+ Normal [facility] Comment on above: Performed By: #### B TS, L300.4310, L300.3900 #### [facility] [address] [place], [address] SMEAR COMMENT SCANNED Normal [facility] Comment on above: Performed By: #### B TS, L300.4310, L300.3900 #### [facility] [address] [place], [address] TEAR DROP 1+ Normal [facility] Comment on above: Performed By: #### B TS, L300.4310, L300.3900 #### [facility] [address] [place], [address] CNPNon 02-05-2024 CNPN Normal [facility] Chest 1 View (Portable)on Chest 1 View (Portable) [facility] Imaging Services [address] [place] [address] Chest 1 View (Portable) MR#: [id number] Acct: [id number] Name: LUTHER CASTILLO II Rep #: [id number] : 1955 M 68 From: Maximo stern MD PCP: Dr. López Ocampo MD Status: [facility] Study: Chest 1 View (Portable) Date of Exam: 02/05/24 Exam# [id number] Ordering Dr: Ajay Garcia DO [id number] STUDY: X-RAY CHEST REASON FOR EXAM: Male, 68 years old. Preop TECHNIQUE: Single AP portable view of the chest. COMPARISON: None. FINDINGS: Mild degree of increased markings at the lung bases slightly worse on the right side suggestive of bibasilar scarring and/or atelectasis. Blunting of both costo phrenic angles. Normal size heart. Normal mediastinum and lily. Normal visualized pulmonary arteries. There is atherosclerotic calcification of the aortic arch with tortuosity. There are diffuse degenerative changes of the visualized thoracic spine. Normal visualized ribs, clavicles, and shoulders. There is no demonstrated abnormality of the visualized soft tissue structures of the upper abdomen. RAD/Chest 1 View (Portable) IMPRESSION: Mild degree of increased markings at the lung bases with confluence worse at the right lung base suggestive of atelectasis and/or scarring. Blunting of both costophrenic angles. Electronically Signed: Maximo Krause MD at 14:15 EDT , CC: Dr. López Ocampo MD; Dr. Ajay Garcia DO Money Position Officer: Signed Normal [facility] Cytology, Body Fluid / CSFon 02-05-2024 CYTOLOGY,BF/CSF SEE PATHOLOGY REPORT Normal [facility] Comment on above: Order Comment: Comme nts: Collected in OR - Peritoneal fluidHas pt arrived? Y Result Comment: Spec imen submitted to Anatomical Pathology Department for testing. Performed By: #### B TS, L300.4310, L300.3900 #### [facility] [address] [place], [address] Emergency Department Summary on 02-05-2024 Emergency Department Summary [facility] Medical Records Department [address] [place] [address] Emergency Department Summary 02/05/24 MR#: [id number] Acct: [id number] Name: LUTHER CASTILLO II Rep #: [id number] : 1955 68 From: Ajay Rizo PCP: Dr. López Ocampo MD Status:ADM CARLENE Location: MS3 NB443-6 HPI HPI - GI History of Present Illness Chief Complaint: Abd Pain Informant: patient and spouse/S.O. Narrative Narrative: Here with spouse evaluation worsening abdominal pain today. This morning mild pain right side however was drove home, had a bowel movement suddenly got worse and severe right lower. Nausea without vomiting. No urinary symptoms. No abdominal surgeries. No allergies. No medications taken. History of prostate cancer diagnosed 3 years ago currently on medications followed by Dr. Herring. Urologist ([place]). Prior similar symptoms: No PFSH PFSH Home Medications ???Medication ???Instructions ???Recorded ???Last Taken ???Type abiraterone 250 mg tablet 1,000 mg PO DAILY prostate cancer 12/11/23 Unknown History atorvastatin 20 mg tablet 20 mg PO DAILY cholesterol 12/11/23 Unknown History prednisone 5 mg tablet 5 mg PO BID prostate 12/11/23 Unknown History tamsulosin 0.4 mg capsule 0.4 mg PO DAILY prostate 12/11/23 Unknown History cimetidine 200 mg tablet (Tagamet 200 mg PO BID 02/05/24 Unknown History HB) denosumab 120 mg/1.7 mL (70 mg/mL) 120 mg subcut .monthly 02/05/24 Unknown History subcutaneous solution (Xgeva) leuprolide acetate (6 month) 45 mg mg subcut 02/05/24 Unknown History (6 month) subcutaneous syringe (Eligard) Allergy/AdvReac Type Severity Reaction Status Date / Time No Known Allergies Allergy Verified 02/05/24 09:38 Social History Smoking Status: Never smoker ROS ROS ED Constitutional Constitutional ED: Denies chills, fever(s) or sweats Eyes Eyes: Denies change in vision ENT ENT ED: Denies dysphagia or sore throat Cardiovascular Cardiovascular: Denies chest pain, leg edema, palpitations or racing heartbeat Respiratory/Chest Respiratory/Chest: Denies cough, dyspnea or dyspnea on exertion Gastrointestinal Gastrointestinal: Reports abdominal pain and nausea; Denies diarrhea or vomiting Genitourinary Genitourinary ED: Denies dysuria, hematuria or urinary frequency Musculoskeletal Musculoskeletal: Denies back pain, extremity pain or neck pain Integumentary Denies rash or wounds Neurologic Neurologic: Denies headache(s), paresthesias or weakness EXAM Physical Exam Const Vital Signs: 02/05/24 09:38 02/05/24 11:38 02/05/24 13:00 Temperature 98 F Temperature Source Oral Pulse Rate 86 99 90 Respiratory Rate 37 H 20 H 16 Blood Pressure 103/50 L 116/54 L 104/51 L Blood Pressure Mean 67 74 68 Blood Pressure Source Blood Pressure Position Blood Pressure Location Pulse Ox 97 98 Oxygen Delivery Method Room Air 02/05/24 13:33 02/05/24 13:34 Temperature 98 F 98 F Temperature Source Oral Pulse Rate 90 97 Respiratory Rate 16 16 Blood Pressure 104/51 L 104/51 L Blood Pressure Mean 68 68 Blood Pressure Source Monitor Blood Pressure Position Supine Blood Pressure Location Left Arm Pulse Ox 98 96 Oxygen Delivery Method Room Air Positive well nourished and well developed Constitutional Narrative: Uncomfortable, nontoxic General Appearance ED: well developed HEENT Reports moist mucous membranes normocephalic and atraumatic Eyes EOMs intact bilaterally and conjunctivae normal General Eye ED: Yes normal appearance of both eyes Neck no lymphadenopathy and supple General: Negative for tenderness Chest Wall Chest: Negative for tenderness Resp normal respiratory effort and normal air movement Effort and Inspection: symmetric chest movement; Negative for respiratory distress Cardio regular rate, regular rhythm and no murmurs Peripheral Pulses: pulses 2+ throughout GI normal to inspection, nondistended, normoactive bowel sounds GI Narrative: Tenderness right lower quadrant, negative Renee's. Negative Rovsing's. Palpation: Negative for rebound tenderness present Back/Spine no CVA tenderness and no thoracic nor lumbar tenderness Extremity normal to inspection General Extremety ED: Negative for edema or tenderness General Extremity: Negative for edema Neuro oriented x3 and no sensory deficits noted Sensorium / Orientation: awake and alert Skin no rashes or lesions noted and no wounds MDM MDM MDM Narrative Medical decision making narrative: Interventions / MDM: Differential diagnosis: Acute appendicitis, right lower quadrant abdominal pain Diagnosis considered but do not suspect: Kidney stone however CT negative (more content not included)... [facility] MR/POSTOP.ANEon 02-05-[address] Medical Records Department [address] [address] Anesthesia Postop Eval I 02/05/241716 MR#: [id number] Acct: [id number] Name: LUTHER CASTILLO II Rep #: [id number] : 1955 68 From: Nelia Mathews CRNA PCP: Dr. López Ocampo MD Status:REG [facility] Y Race: C Location: [place] [address] Anesthesia: Postop Eval I Current Vital Signs Temperature: 98.8 F Pulse Rate: 100 Blood Pressure: 102/50 Respiratory Rate: 18 Pulse Ox: 59 Oxygen Delivery Method: Room Air Assessment Airway patent: Yes Spontaneous unlabored respirations: Yes Mental status: Awake and Calm nausea: No Vomiting: No Anesthesia Complication: No Fluid Hydration Crystalloid volume administer (ml): 1,000 Total IV fluid infused: 1,000 Progress Note Anesthesia document: Postop Eval 1 completed: Yes 02/05/241718 Date Nelia Mathews BROADCAST MAINTENANCE TECHNICIAN Cosigner Signature: Date CC: Signed [facility] MR/GYTELTYC1wt 02-05-2024 MR/POSTOPAN2 [facility] Medical Records Department [address] [place] [address] Anesthesia Postop Eval II 02/05/241725 MR#: [id number] Acct: [id number] Name: LUTHER CASTILLO II Rep #: [id number] : 1955 68 From: Bhanu Salinas MD PCP: Dr. López Ocampo MD Status:REG SDC Y Race: C Location: [facility] AC-TBA-1 Anesthesia Postop Eval I Sum Postop Eval Completion status Anesthesia document: Postop Eval 1 completed: Yes Anesthesia Postop Eval I Summary Anesthesia Postop Eval I Summary: Anesthesia Postop Eval I: Assessment Summary Airway patent Yes 02/05/24 17:19 BROADCAST MAINTENANCE TECHNICIAN.SKOBY Spontaneous unlabored Yes 02/05/24 17:19 BROADCAST MAINTENANCE TECHNICIAN.SKOBY respirations Mental status Awake,Calm 02/05/24 17:19 BROADCAST MAINTENANCE TECHNICIAN.SKOBY nausea No 02/05/24 17:19 BROADCAST MAINTENANCE TECHNICIAN.SKOBY Vomiting No 02/05/24 17:19 BROADCAST MAINTENANCE TECHNICIAN.SKOBY Anesthesia Postop Eval I: Fluid Summary Crystalloid volume administer 1,000 02/05/24 17:19 BROADCAST MAINTENANCE TECHNICIAN.SKOBY (ml) Colloids volume administered ( ml) Blood Product volume administered (ml) Total IV fluid infused 1,000 02/05/24 17:19 BROADCAST MAINTENANCE TECHNICIAN.SKOBY Anesthesia Postop Eval I: Summary Notes Anesthesia Complication No 02/05/24 17:19 BROADCAST MAINTENANCE TECHNICIAN.SKOBY Anesthesia Complication Comment: Post-operative progress note Anesthesia: Postop Eval II Evaluation Mental status: Awake Pain Level: 2 nausea: No Vomiting: No 02/05/241725 Date Bhanu Salinas MD Cosigner Signature: Date CC: Signed Normal [facility] Operative Reporton 4 Operative Report [facility] Medical Records Department [address] [place] [address] Operative Report 02/05/24 1702 MR#: [id number] Acct: [id number] Name: LUTHER CASTILLO II Rep #: [id number] : 1955 68 From: Rohit Crawford MD PCP: Dr. López Ocampo MD Status:[facility] Location: [place] [address] Operative Report (Standard) Operative Information Surgery/Procedure Performed: Laparoscopic appendectomy Surgeon: Rohit Crawford Date of Procedure: 02/05/24 Procedure Start Time: 16:20 Procedure Stop Time: 17:06 Pre-Operative Diagnosis: Acute uncomplicated appendicitis Post-Operative Diagnosis: 1. Acute uncomplicated appendicitis 2. Simple peritoneal ascites with evidence of reactive serositis to the surrounding bowel 3. Evidence of indirect right inguinal hernia without hernia contents Select all DRAINS/GRAFTS/IMPLANTS that apply: None Type of Anesthesia: General/Supplemental Estimated Blood Loss: 5 Specimen collected: Yes Description of specimen(s) removed: 1. Appendix 2. Peritoneal fluid for cytology and micro Description of surgery: After appropriate identification in the preoperative holding area, the patient was brought to the operating room and placed supine on the operating room table. Antibiotics had been preoperatively administered by emergency medicine. Patient was then induced with general endotracheal anesthetic. The abdomen was prepped and draped in usual sterile fashion. Formal timeout was conducted to confirm both the patient and the procedure. A supraumbilical incision was made and carried down to the level of the fascia which was sharply opened. After opening the peritoneum in like fashion a finger sweep was made to confirm position, and a balloon trocar was placed and pneumoperitoneum was established to 15 mmHg. Patient was positioned in Trendelenburg with the left side down. 2 additional 5 mm trocars were placed in the left lower quadrant and suprapubic positions. The peritoneum was inspected and there were no signs of inadvertent injury from this Hernandez entry. The appendix was visualized with evidence of acute inflammation and some surrounding simple ascites (it was also noted that there was evidence of hemorrhagic serositis to the terminal ileum and colon). A sample of this fluid was collected for both micro and cytology (given patient's history of stage IV prostate cancer and previous abnormal imaging of the appendix). The peritoneum was opened lateral to the appendix and this opening was extended down to the level of the base of the appendix. Using blunt laparoscopic dissection, a window was made in the mesoappendix adjacent to the appendiceal base. The mesoappendix was divided with application of a laparoscopic harmonic. Then the base of the appendix was sealed and amputated with the use of an Endo KEN stapler. The appendix was placed in an Endo Catch bag. The staple line was inspected for hemostasis and there was initially some mild oozing show a Ray-Caitlyn gauze was introduced to the peritoneal cavity and direct pressure was applied. After direct pressure was relieved hemostasis was found to be intact. After hemostasis was confirmed the appendix was removed from the umbilical port site. Pneumoperitoneum was then evacuated and the supraumbilical port site fascia was closed with #1 Vicryl in a [id number]-[id number] fashion. The port sites were infiltrated with 30 mL local anesthetic. The skin of each port site was closed with 4-0 Monocryl in a subcuticular fashion. Steri-Strips and OpSite dressings were applied. Patient tolerated procedure well without any apparent complications. They were awoken from general anesthetic without issue and transferred to post anesthesia care unit for ongoing recovery. Surgical Findings: ??? Serositis of the terminal ileum and ascending colon ??? Serous ascites with slight clouding ??? Evidence of a right-sided indirect inguinal hernia Batch Blender sales and retail management recruiter: Yes Grease Monkey: Jonathan Pressley Tasks completed by business services assistant: Opening, Closing and Other (Laparoscopic camera) Complications Complications: Yes Complication Details: None Admit VTE Documentation VTE Mechan Device Prophylaxis: SCD's Procedures Digestive 40xxx-49xxx: 17924 Laparoscopy appendectomy 02/05/24 1716 Cosigner Signature (if applicable): CC: Dr. López Ocampo MD; Dr. Rohit Crawford MD Signed Normal [facility] Partial Thromboplast Timeon 02-05-2024 aPTT Coag (Bld) [Time] 23.5 s Low 24.1-36.2 [facility] Comment on above: Performed By: #### B TS, L300.4310, L300.3900 #### [facility] [address] [place], [address] Prothrombin Time w/INRon INR Coag (PPP) [Relative time] 1.1 {INR} Normal [facility] Comment on above: Performed By: #### B TS, L300.4310, L300.3900 #### [facility] [address] [place], [place], [address] PT Coag (PPP) [Time] 14.0 s Normal 11.7-14.9 [facility] Comment on above: Performed By: #### B TS, L300.4310, L300.3900 #### [facility] [address] [place], [place], [id number] Surgery Specimen Level IIIon 02-05-2024 Surgery Specimen Level III Patient Age/Sex Location Account Attending Physician LUTHER CASTILLO II 68/M MS3 [id number] Dr. Rohit Crawford MD Specimen: [id number] Received: 02/05/24 Status: SONIYA Bradford Num: [id number] Spec Type: APPENDIX Subm Dr: Dr. Rohit Crawford MD HEADER OPERATION: Laparoscopic appendectomy PRE-OP DIAGNOSIS: Acute appendicitis TISSUE SUBMITTED: Appendix MICROSCOPIC DIAGNOSIS Appendix, appendectomy: Acute appendicitis and periappendicitis. See comment. Feroz 02/09/2024 COMMENT Please also make reference additional specimen, [id number], peritoneal fluid for cytology with diagnosis of negative for malignant cells and acute inflammation. Clinical correlation and appropriate follow up are necessary. MICROSCOPIC DESCRIPTION Slides are reviewed. GROSS DESCRIPTION Received in fixative is one container labeled with the patient's name and designated appendix. The specimen consists of an appendix measuring 4.5 cm in length and up to 1.1 cm in diameter. The attached periappendiceal adipose tissue measures up to 1.0 cm in width. The serosa is congested. No obvious perforation is identified. The lumen does not contain any fecal material. No fecalith is identified. Muffle Operator sections are submitted in one cassette. SJ. 02/06/2024 Rest of the specimen is submitted in two cassettes. Cassette 2 contains the tip and most proximal portion. / SJ: 02/09/2024 TC:2 CPT: 17366 Patient Age/Sex Location Account Attending Physician LUTHER CASTILLO II 68/M MS3 [id number] Dr. Rohit Crawford MD Signed (signature on file) Dr. Toy Cerrato MD 02/10/24 1156 Normal [facility] Comment on above: Performed By: #### P SUIII #### [facility] [address] [place], [address] Type AND Screenon 02-05-2024 Ab SCREEN GEL Negative Normal [facility] Comment on above: Order Comment: S Performed By: #### B TS, L300.4310, L300.3900 #### [facility] [address] [place], [address] Urinalysis, Completeon 02-04 AMORPHOUS 1+ Normal [facility] Comment on above: Order Comment: CLEAN CATCH Performed By: #### B TS, L300.4310, L300.3900 #### [facility] [address] [place], [address] BACTERIA RARE Normal None Seen [facility] Comment on above: Order Comment: CLEAN CATCH Performed By: #### B TS, L300.4310, L300.3900 #### [facility] [address] [place], [address] EPI,SQUAMOUS 0 SEEN Normal 0-5 [facility] Comment on above: Order Comment: CLEAN CATCH Performed By: #### B TS, L300.4310, L300.3900 #### [facility] [address] [place], [address] Mucus Ql (Urine sed) 0 SEEN Normal [facility] Comment on above: Order Comment: CLEAN CATCH Performed By: #### B TS, L300.4310, L300.3900 #### [facility] [address] [place], [address] RBC 0 SEEN Normal 0-5 [facility] Comment on above: Order Comment: CLEAN CATCH Performed By: #### B TS, L300.4310, L300.3900 #### [facility] [address] [place], [address] WBC 0 SEEN Normal [address] [place] [address] Comment on above: Order Comment: CLEAN CATCH Performed By: #### B TS, L300.4310, L300.3900 #### [facility] [address] [place], [address] CNOVon 02-03-2024 CNOV Normal [facility] CNPNon 02-03-2024 CNPN Normal [facility] No Panel Informationon 02-02 IMPRESSION: 1 mm posterior RIGHT testicular calcification. Sonographic appearance of the scrotal contents is otherwise unremarkable. Normal arterial and venous flow within both testes. No abnormality is demonstrated in the LEFT inguinal canal. Money Position Officer: APRIL Transcribe Date/Time: Feb 03 2024 2:57P Dictated by : CONSTANTIN LEON MD This examination was interpreted and the report reviewed and electronically signed by: CONSTANTIN LEON MD on Feb 03 2024 3:03PM [facility] DIVISION OF RADIOLOGY Radiology Study observation (narrative) [facility] No Panel InformationOrdered By: Ccf Provider on 02-03-2024 [facility] US DOPPLER COMPLETEon 2023 US DOPPLER COMPLETE Normal [facility] US SCROTUM AND CONTENTSon US SCROTUM AND CONTENTS Normal [facility] US.doppler Scrotum and testi hali 02-03-2024 * * *Final Report* * * DATE OF EXAM: Feb 03 2024 2:56PM [facility] 1063 - US SCROTUM AND CONTENTS / PROCEDURE REASON: Left inguinal pain * * * * Physician Interpretation * * * * EXAMINATION: SCROTAL ULTRASOUND WITH DOPPLER IMAGING CLINICAL HISTORY: Left inguinal pain TECHNIQUE: Sonography of the scrotal contents with color flow and spectral Doppler imaging of the testicular vasculature was performed. Images were obtained and stored in a permanent archive. M: USC_2 COMPARISON: None RESULT: RIGHT SCROTUM: Right testis: 4.2 x 1.3 x 2.6 cm. Medial crescentic shadowing density in posterior testicle on sagittal images, 1 mm in diameter. Not clearly demonstrated on the transverse images. The testicle appears otherwise unremarkable. Normal intratesticular arterial and venous flow with normal spectral waveforms. Epididymis: Normal. Vascular flow on Color Doppler is symmetric to the contralateral side. Hydrocele: physiologic fluid present Varicocele: absent LEFT SCROTUM: Left testis: 4.7 x 1.5 x 2.4 cm. Homogeneous with no calcifications or mass. Normal intratesticular arterial and venous flow with normal spectral waveforms. Epididymis: Normal. Vascular flow on Color Doppler is symmetric to the contralateral side. Hydrocele: physiologic fluid present Varicocele: absent Images of the LEFT inguinal canal are unremarkable. DIVISION OF RADIOLOGY Provider, [facility] - 02/03/2024 * * *Final Report* * * DATE OF EXAM: Feb 03 2024 2:56PM [facility]63 - US SCROTUM AND CONTENTS / PROCEDURE REASON: Left inguinal pain * * * * Physician Interpretation * * * * EXAMINATION: SCROTAL ULTRASOUND WITH DOPPLER IMAGING CLINICAL HISTORY: Left inguinal pain TECHNIQUE: Sonography of the scrotal contents with color flow and spectral Doppler imaging of the testicular vasculature was performed. Images were obtained and stored in a permanent archive. M: USC_2 COMPARISON: None RESULT: RIGHT SCROTUM: Right testis: 4.2 x 1.3 x 2.6 cm. Medial crescentic shadowing density in posterior testicle on sagittal images, 1 mm in diameter. Not clearly demonstrated on the transverse images. The testicle appears otherwise unremarkable. Normal intratesticular arterial and venous flow with normal spectral waveforms. Epididymis: Normal. Vascular flow on Color Doppler is symmetric to the contralateral side. Hydrocele: physiologic fluid present Varicocele: absent LEFT SCROTUM: Left testis: 4.7 x 1.5 x 2.4 cm. Homogeneous with no calcifications or mass. Normal intratesticular arterial and venous flow with normal spectral waveforms. Epididymis: Normal. Vascular flow on Color Doppler is symmetric to the contralateral side. Hydrocele: physiologic fluid present Varicocele: absent Images of the LEFT inguinal canal are unremarkable. IMPRESSION IMPRESSION: 1 mm posterior RIGHT testicular calcification. Sonographic appearance of the scrotal contents is otherwise unremarkable. Normal arterial and venous flow within both testes. No abnormality is demonstrated in the LEFT inguinal canal. Money Position Officer: [facility] Transcribe Date/Time: Feb 03 2024 2:57P Dictated by : CONSTANTIN LEON MD This examination was interpreted and the report reviewed and electronically signed by: CONSTANTIN LEON MD on Feb 03 2024 3:03PM [facility] US.doppler Unspecified body regionon 02-03-2024 * * *Final Report* * * DATE OF EXAM: Feb 03 2024 2:56PM [facility] 1033 - US DOPPLER COMPLETE / PROCEDURE REASON: Left inguinal pain * * * * Physician Interpretation * * * * EXAMINATION: SCROTAL ULTRASOUND WITH DOPPLER IMAGING CLINICAL HISTORY: Left inguinal pain TECHNIQUE: Sonography of the scrotal contents with color flow and spectral Doppler imaging of the testicular vasculature was performed. Images were obtained and stored in a permanent archive. M: USC_2 COMPARISON: None RESULT: RIGHT SCROTUM: Right testis: 4.2 x 1.3 x 2.6 cm. Medial crescentic shadowing density in posterior testicle on sagittal images, 1 mm in diameter. Not clearly demonstrated on the transverse images. The testicle appears otherwise unremarkable. Normal intratesticular arterial and venous flow with normal spectral waveforms. Epididymis: Normal. Vascular flow on Color Doppler is symmetric to the contralateral side. Hydrocele: physiologic fluid present Varicocele: absent LEFT SCROTUM: Left testis: 4.7 x 1.5 x 2.4 cm. Homogeneous with no calcifications or mass. Normal intratesticular arterial and venous flow with normal spectral waveforms. Epididymis: Normal. Vascular flow on Color Doppler is symmetric to the contralateral side. Hydrocele: physiologic fluid present Varicocele: absent Images of the LEFT inguinal canal are unremarkable. DIVISION OF RADIOLOGY Provider, [facility] - 02/03/2024 * * *Final Report* * * DATE OF EXAM: Feb 03 2024 2:56PM [facility] 1033 - US DOPPLER COMPLETE / PROCEDURE REASON: Left inguinal pain * * * * Physician Interpretation * * * * EXAMINATION: SCROTAL ULTRASOUND WITH DOPPLER IMAGING CLINICAL HISTORY: Left inguinal pain TECHNIQUE: Sonography of the scrotal contents with color flow and spectral Doppler imaging of the testicular vasculature was performed. Images were obtained and stored in a permanent archive. M: USC_2 COMPARISON: None RESULT: RIGHT SCROTUM: Right testis: 4.2 x 1.3 x 2.6 cm. Medial crescentic shadowing density in posterior testicle on sagittal images, 1 mm in diameter. Not clearly demonstrated on the transverse images. The testicle appears otherwise unremarkable. Normal intratesticular arterial and venous flow with normal spectral waveforms. Epididymis: Normal. Vascular flow on Color Doppler is symmetric to the contralateral side. Hydrocele: physiologic fluid present Varicocele: absent LEFT SCROTUM: Left testis: 4.7 x 1.5 x 2.4 cm. Homogeneous with no calcifications or mass. Normal intratesticular arterial and venous flow with normal spectral waveforms. Epididymis: Normal. Vascular flow on Color Doppler is symmetric to the contralateral side. Hydrocele: physiologic fluid present Varicocele: absent Images of the LEFT inguinal canal are unremarkable. IMPRESSION IMPRESSION: 1 mm posterior RIGHT testicular calcification. Sonographic appearance of the scrotal contents is otherwise unremarkable. Normal arterial and venous flow within both testes. No abnormality is demonstrated in the LEFT inguinal canal. Money Position Officer: APRIL Transcribe Date/Time: Feb 03 2024 2:57P Dictated by : CONSTANTIN LEON MD This examination was interpreted and the report reviewed and electronically signed by: CONSTANTIN LEON MD on Feb 03 2024 3:03PM EST [facility] [id number] 01-29-2024 [id number] HNO ID: [id number] Author: ENDY CURRAN PT Service: ? Author Type: Physical Therapist Type: [id number] Filed: 01/29/2024 14:32 Note Text: [facility] Physical Therapy Plan of Care Certification Patient Name: Luther Castillo : 1955 [facility] #: [id number] Date: 01/29/2024 To: Catherine Peraza APRN, DIRECTOR OF HEALTH CARE MARKETING From Therapist: Endy Curran PT, DERRICK RE: Patient Certification/ Recertification Your review, approval and electronic signature are required in order to comply with Payor: MEDICARE / Plan: MEDICARE A AND B / Product Type: Medicare / regulations. The identified Physical Therapy PLAN OF CARE for the patient is as follows: M25.552 Left hip pain (primary encounter diagnosis) M54.16 Radiculopathy, lumbar region M53.86 Decreased ROM of lumbar spine M62.81 Weakness of trunk musculature PLAN OF CARE: Assessment: Luther Castillo presents with chief complaint of chronic L hip, groin, and L lower back pain that interferes with standing, walking in the house, walking in the community, cleaning, grooming, dressing, bed mobility (Difficulty showering to reach behind the L side, dressing L LE and with car transfers needing UE to lift L LE into the car. Mild difficulty shifting L LE for bed mobility tasks.) . The patient presents with impairments in ADL's, independence in exercise, overall function, patient reported outcome measures, posture, range of motion, strength, and symptom management. PROMIS? (Patient-Reported Outcomes Measurement Information System) scores were reviewed and identified as a rehabilitation concern. Prognosis for therapy is Good due to: current objective clinical presentation, good overall health status, good support system/ coping skills, Prognosis may be limited due to chronic nature ofimpairments . Patient presents with positive R MINI test, decreased lumbar ROM, decreased trunk/abdominal strengths and I suspect L hip pain may be due to lumbar radicular symptoms. The patient will benefit from skilled therapy services to meet the goals established for this plan of care as noted below. Goals for Episode of Care: established 01/29/24 Patient reported outcome of physical function will increase T-score by a minimum 5 points. Patient to be independent in home exercise program for low back ROM and lumbar stabilization and LE strengthening exercises to return patient to prior level of function and reduce L hip pain. Patient will decrease lower back and L LE radicular pain to 0-3/10 at rest and with functional activities to allow patient to improve ambulation, transfers, and standing tolerance for ADLs. Patient will increase active ROM of lumbar spine to minimal to moderate limitation overall to allow pt to improve performance of ADLs. Patient will demonstrate increase in trunk, abdominal and bilateral LE strengths to 4+ to 4+-5/5 during manual muscle testing in order to improve function for home management tasks, light functional tasks, and prior functional tasks. Perform most home management and ADL tasks with decreased report of symptoms/pain in 4-6 weeks. Patient Goals: To decrease lower back and L hip pain Time Frame for Goals and Treatment : 03/19/24 Planned Interventions, Frequency, and Duration: Current Frequency: 2x/week Duration: 6 weeks Total Number of Visits Planned: 12 Planned Treatment Interventions: Therapeutic exercise (00069), Manual therapy (45927), Therapeutic activities (89466), Self-penitentiary management (98274), Patient/Family/Caregiver Education, Body Mechanics Training PLAN FOR NEXT VISIT: Review HEP and progress with further lumbar stabilization exercises with flexion bias. Patient demonstrates good understanding of plan of care and treatment. The above goals and plan of care were discussed and agreed upon by patient/family. For further details regarding this patient refer to the Physical Therapy electronically documented visit dated 01/29/2024. Provider Attestation I have reviewed the treatment plan for Luther Castillo, [facility]# [id number] for the period of 01/29/24 -- 03/19/24, established on 01/29/2024. Signature certifies the need for therapy services. [facility] CNTHERAPYon 01-29-2024 CNTHERAPY OT/PT/Speech Visit ([facility]) -- JONATHAN,JOHN Collin ([id number]) 1955 M Date Time Provider Department 01/29/24 9:30 AM ENDY CURRAN [facility] CENTER Date Time Provider Department [place] 01/29/2024 9:30 AM [id number], CYNTHIA*[facility] M Reason for Visit: PT Eval [747] Primary Visit Diagnosis:Left hip pain [M25.552] Other Visit Diagnoses:Radiculopathy, lumbar region [M54.16] Decreased ROM of lumbar spine [M53.86] Weakness of trunk musculature [M62.81] Allergies As of Date: 01/29/2024 Noted Allergy Reaction RAGWEED POLLEN 06/11/2023 14 - Other: See Comments Comments: Watering/itchy eyes Date Reviewed: 01/21/2024 Reviewed by: Sienna Anglin Ma, MA - Fully Assessed Prescriptions as of 02/03/2024 - cyclobenzaprine (FLEXERIL) 10 mg tablet Take 1 tablet by mouth two times a day as needed for muscle spasm. - dexAMETHasone (DECADRON) 4 mg tablet Take 1 tablet by mouth daily with breakfast. Take on mornings of injections - tamsulosin (FLOMAX) 0.4 mg Take 1 capsule by mouth once daily. - predniSONE (DELTASONE) 5 mg tablet take 1 tablet by mouth twice daily - darbepoetin dagmar in albumn john (ARANESP INJECTION) by INJECTION(UNSPECIFIED PARENTERAL ROUTES) route every 4 weeks. PRN - abiraterone 250 mg tablet TAKE 4 TABLETS (1,000MG) BY MOUTH ONCE DAILY ON AN EMPTY STOMACH 1 HOUR BEFORE OR 2 HOURS AFTER A MEAL - atorvastatin (LIPITOR) 20 mg tablet Take 1 tablet by mouth daily at bedtime. For cholesterol. - cimetidine (TAGAMET) 200 mg tablet Take 200 mg by mouth twice daily. - calcium carbonate/vitamin D3 (CALCIUM + D ORAL) Take 1 tablet by mouth twice daily. - leuprolide acetate (ELIGARD SUBCUTANEOUS) Inject subcutaneously once every 6 months. - denosumab (XGEVA SUBCUTANEOUS) Inject subcutaneously once every month. - iv contrast (will be provided with radiology test) MRI Prostate Inject, intravenously, once for 1 dose. No IV access, insert saline lock prior to the beginning of sedation, infusion, injection of imaging exam. Discontinue saline lock post exam. If Pt. has a central line or IVAD, may access for administration according to line specific nursing protocol. Once exam is complete flush line and de-access according to line specific nursing protocol in the MR contrast administration guidelines link. Funeral Home Manager: Addendum Therapy (PT/OT/Speech/Resp) ID: [id number] 01/29/2024 10:39 AM Author: ENDY CURRAN Signed by ENDY CURRAN PT on 01/29/2024 at 10:39 AM * * * This document replaces document [id number] * * * Document text: Program_ID:[id number] Access Code: [email or web address] URL: [email or web address] Date: 01-29-2024 Prepared By: ENDY CURRAN Program Notes Exercises - Supine Posterior Pelvic Tilt - 2 x daily - 7 x weekly - 1-2 sets - 10 reps - Posterior Pelvic Tilt with Adduction Using Pillow in Hooklying - 2 x daily - 7 x weekly - 1-2 sets - 10 reps - Hooklying Clamshell with Resistance - 2 x daily - 7 x weekly - 1-2 sets - 10 reps - Supine Double Knee to Chest - 2 x daily - 7 x weekly - 1 sets - 5 reps [facility] THERAPY NTon 01-29-2024 THERAPY NT HNO ID: [id number] Author: ENDY CURRAN PT Service: ? Author Type: Physical Therapist Type: Therapy (PT/OT/Speech/Resp) Filed: 01/29/2024 10:39 Note Text: Program_ID:[id number] Access Code: [email or web address] URL: [email or web address] Date: 01-29-2024 Prepared By: ENDY CURRAN Program Notes Exercises - Supine Posterior Pelvic Tilt - 2 x daily - 7 x weekly - 1-2 sets - 10 reps - Posterior Pelvic Tilt with Adduction Using Pillow in Hooklying - 2 x daily - 7 x weekly - 1-2 sets - 10 reps - Hooklying Clamshell with Resistance - 2 x daily - 7 x weekly - 1-2 sets - 10 reps - Supine Double Knee to Chest - 2 x daily - 7 x weekly - 1 sets - [address] [facility] CNPNon 01-23-2024 CNPN Normal [facility] Basic metabolic 2000 panelon 01-21-2024 Anion gap [Moles/Vol] 8 mmol/L Normal 8-15 [facility] Comment on above: Order Comment: Speci men Type: BLOOD SPECIMENOrdering Facility: [facility] Address: [address] [place] [address] Performed By: #### 2 4321-2 ####[facility] MILLTOWNCLIA [id number] [place] [address] [place] Calcium [Mass/Vol] 9.1 mg/dL Normal 8.5-10.2 [facility] Comment on above: Order Comment: Speci men Type: BLOOD SPECIMENOrdering Facility: [facility] Address: [address] [place] [address] Performed By: #### 2 4321-2 ####[facility] NIKOLE MILLTOWNCLIA [id number] [place] [address] [place] Chloride [Moles/Vol] 104 mmol/L Normal 98-107 [facility] Comment on above: Order Comment: Speci men Type: BLOOD SPECIMENOrdering Facility: [facility] Address: [address] [place] [address] Performed By: #### 2 4321-2 ####[facility] NIKOLE MILLTOWNCLIA [id number] [place] [address] [place] CO2 [Moles/Vol] 26 mmol/L Normal 22-30 [facility] Comment on above: Order Comment: Speci men Type: BLOOD SPECIMENOrdering Facility: [facility] Address: [address] [place] [address] Performed By: #### 2 4321-2 ####[facility] [id number] [place] [address] [place] Creatinine [Mass/Vol] 0.95 mg/dL Normal 0.73-1.22 [facility] Comment on above: Order Comment: Speci men Type: BLOOD SPECIMENOrdering Facility: [facility] Address: [address] [place] [address] Performed By: #### 2 4321-2 ####[facility] [id number] [address] STATES OF [facility] Creatinine and Glomerular filtration rate.predicted panel (S/P/Bld) 86 mL/min/1.73m??? Normal >=60 [facility] Comment on above: Order Comment: Speci men Type: BLOOD SPECIMENOrdering Facility: [facility] Address: [address] [place] [address] Result Comment: Beth mated Glomerular Filtration Rate (eGFR) is calculated using the 2020 CKD-EPI creatinine equation. This equation utilizes serum creatinine, sex, and age as parameters. The creatinine assay has traceable calibration to isotope dilution-mass spectrometry. Refer to KDIGO guidelines for clinical interpretation. In patients with unstable renal function, e.g. those with acute kidney injury, the eGFR may not accurately reflect actual GFR. Performed By: #### 2 4321-2 ####[facility] [id number] [place] [address] [place] Glucose [Mass/Vol] 95 mg/dL Normal 74-99 [facility] Comment on above: Order Comment: Speci men Type: BLOOD SPECIMENOrdering Facility: [facility] Address: [address] [place] [address] Result Comment: The [place] Diabetes Association (ADA) provides guidance for cutoff values for fasting glucose and random glucose. The ADA defines fasting as no caloric intake for at least 8 hours. Fasting plasma glucose results between 100 to 125 mg/dL indicate increased risk for diabetes (prediabetes).Fasting plasma glucose results greater than or equal to 126 mg/dL meet the criteria for diagnosis of diabetes. In the absence of unequivocal hyperglycemia, results should be confirmed by repeat testing. In a patient with classic symptoms of hyperglycemia or hyperglycemic crisis, random plasma glucose results greater than or equal to 200 mg/dL meet the criteria for diagnosis of diabetes.Reference: Standards of Medical Care in Diabetes 2016, [place] [employer]. Diabetes Care. 2016.39(Suppl 1). Performed By: #### 2 4321-2 ####[facility] [id number] [place] [address] [place] Potassium [Moles/Vol] 4.0 mmol/L Normal 3.7-5.1 [facility] Comment on above: Order Comment: Speci men Type: BLOOD SPECIMENOrdering Facility: [facility] Address: [address] [place] [address] Performed By: #### 2 4321-2 ####[facility] [id number] [place] [address] [place] Sodium [Moles/Vol] 138 mmol/L Normal 136-144 [facility] Comment on above: Order Comment: Speci men Type: BLOOD SPECIMENOrdering Facility: [facility] Address: [address] [place] [address] Performed By: #### 2 4321-2 ####[facility] [id number] [place] [address] [place] Urea nitrogen [Mass/Vol] 15 mg/dL Normal 9-24 [facility] Comment on above: Order Comment: Speci men Type: BLOOD SPECIMENOrdering Facility: [facility] Address: [address] [place] [address] Performed By: #### 2 4321-2 ####[facility] MILLWNCLIA [id number] [place] [address] [place] CBC W Auto Differential pane l (Bld)on 01-21-2024 Basophils (Bld) [#/Vol] 10*3/uL Normal <0.11 [facility] Comment on above: Order Comment: Speci men Type: BLOOD SPECIMENOrdering Facility: [facility] Address: [address] [place] [address] Performed By: #### 5 7021-8 ####[facility]ALL[facility] [id number] [place] [address] [place] Basophils/100 WBC (Bld) 0.3 % Normal [facility] Comment on above: Order Comment: Speci men Type: BLOOD SPECIMENOrdering Facility: [facility] Address: [address] [place] [address] Performed By: #### 5 7021-8 ####[facility] [id number] [place] [address] [place] Differential cell count method Nom (Bld) Auto Normal [facility] Comment on above: Order Comment: Speci men Type: BLOOD SPECIMENOrdering Facility: [facility] Address: [address] [place] [address] Performed By: #### 5 7021-8 ####[facility] [id number] [place] [address] [place] Eosinophils (Bld) [#/Vol] 0.34 10*3/uL Normal <0.46 [facility] Comment on above: Order Comment: Speci men Type: BLOOD SPECIMENOrdering Facility: [facility] Address: [address] [place] [address] Performed By: #### 5 7021-8 ####[facility] [id number] [place] [address] [place] Eosinophils/100 WBC (Bld) 5.5 % Normal [facility] Comment on above: Order Comment: Speci men Type: BLOOD SPECIMENOrdering Facility: [facility] Address: [address] [place] [address] Performed By: #### 5 7021-8 ####[facility] [id number] [place] [address] [place] Erythrocyte distribution width (RBC) [Ratio] 20.1 % High 11.5-15.0 [facility] Comment on above: Order Comment: Speci men Type: BLOOD SPECIMENOrdering Facility: [facility] Address: [address] [place] [address] Performed By: #### 5 7021-8 ####[facility] [id number] [place] [address] [place] Hematocrit (Bld) [Volume fraction] 30.6 % Low 39.0-51.0 [facility] Comment on above: Order Comment: Speci men Type: BLOOD SPECIMENOrdering Facility: [facility] Address: [address] [place] [address] Performed By: #### 5 7021-8 ####[facility] [id number] [place] [address] [place] Hemoglobin (Bld) [Mass/Vol] 9.2 g/dL Low 13.0-17.0 [facility] Comment on above: Order Comment: Speci men Type: BLOOD SPECIMENOrdering Facility: [facility] Address: [address] [place], [place] [address] Performed By: #### 5 7021-8 ####[facility]ITALNCL[facility] [id number] [place] [address] [place] Immature granulocytes (Bld) [#/Vol] 10*3/uL Normal <0.10 [facility] Comment on above: Order Comment: Speci men Type: BLOOD SPECIMENOrdering Facility: [facility] Address: [address] [place] [address] Performed By: #### 5 7021-8 ####[facility] BIENVENIDODONA [id number] [place] [address] [place] Immature granulocytes/100 WBC (Bld) 0.3 % Normal [facility] Comment on above: Order Comment: Speci men Type: BLOOD SPECIMENOrdering Facility: [facility] Address: [address] [place] [address] Performed By: #### 5 7021-8 ####[facility]ITALCINDY [id number] [place] [address] [place] Lymphocytes (Bld) [#/Vol] 2.37 10*3/uL Normal 1.00-4.00 [facility] Comment on above: Order Comment: Speci men Type: BLOOD SPECIMENOrdering Facility: [facility] Address: [address] [place] [address] Performed By: #### 5 7021-8 ####[facility] [id number] [place] [address] [place] Lymphocytes/100 WBC (Bld) 38.3 % Normal [facility] Comment on above: Order Comment: Speci men Type: BLOOD SPECIMENOrdering Facility: [facility] Address: [address] [place] [address] Performed By: #### 5 7021-8 ####[facility] [id number] [place] [address] [place] MCH (RBC) [Entitic mass] 24.5 pg Low 26.0-34.0 [facility] Comment on above: Order Comment: Speci men Type: BLOOD SPECIMENOrdering Facility: [facility] Address: [address] [place] [address] Performed By: #### 5 7021-8 ####[facility] HOSPITALNCKATERINA [id number] [place] [address] [place] MCHC (RBC) [Mass/Vol] 30.1 g/dL Low 30.5-36.0 [facility] Comment on above: Order Comment: Speci men Type: BLOOD SPECIMENOrdering Facility: [facility] Address: [address] [place] [address] Performed By: #### 5 7021-8 ####[facility] [id number] [place] [address] [place] MCV (RBC) [Entitic vol] 81.4 fL Normal 80.0-100.0 [facility] Comment on above: Order Comment: Speci men Type: BLOOD SPECIMENOrdering Facility: [facility] Address: [address] [place] [address] Performed By: #### 5 7021-8 ####[facility] [id number] [place] [address] [place] Monocytes (Bld) [#/Vol] 0.40 10*3/uL Normal <0.87 [facility] Comment on above: Order Comment: Speci men Type: BLOOD SPECIMENOrdering Facility: [facility] Address: [address] [place] [address] Performed By: #### 5 7021-8 ####[facility] [id number] [place] [address] [place] Monocytes/100 WBC (Bld) 6.5 % Normal [facility] Comment on above: Order Comment: Speci men Type: BLOOD SPECIMENOrdering Facility: [facility] Address: [address] [place] [address] Performed By: #### 5 7021-8 ####[facility]ITALNCLIA [id number] [place] [address] [place] Neutrophils (Bld) [#/Vol] 3.03 10*3/uL Normal 1.45-7.50 [facility] Comment on above: Order Comment: Speci men Type: BLOOD SPECIMENOrdering Facility: [facility] Address: [address] [place] [address] Performed By: #### 5 7021-8 ####[facility] [id number] [place] [address] [place] Neutrophils/100 WBC (Bld) 49.1 % Normal [facility] Comment on above: Order Comment: Speci men Type: BLOOD SPECIMENOrdering Facility: [facility] Address: [address] [place] [address] Performed By: #### 5 7021-8 ####[facility] [id number] [place] [address] [place] Nucleated RBC (Bld) [#/Vol] 10*3/uL Normal <0.01 [facility] Comment on above: Order Comment: Speci men Type: BLOOD SPECIMENOrdering Facility: [facility] Address: [address] [place] [address] Performed By: #### 5 7021-8 ####[facility] [id number] [place] [address] [place] Nucleated RBC/100 WBC (Bld) [Ratio] 0.0 /100 WBC Normal [facility] Comment on above: Order Comment: Speci men Type: BLOOD SPECIMENOrdering Facility: [facility] Address: [address] [place] [address] Performed By: #### 5 7021-8 ####[facility] [id number] [place] [address] [place] Platelet mean volume (Bld) [Entitic vol] 8.3 fL Low 9.0-12.7 [facility] Comment on above: Order Comment: Speci men Type: BLOOD SPECIMENOrdering Facility: [facility] Address: [address] [place], [place] [address] Performed By: #### 5 7021-8 ####[facility] CORNOANCKATERINA [id number] [place] [address] [place] Platelets (Bld) [#/Vol] 178 10*3/uL Normal 150-400 [facility] Comment on above: Order Comment: Speci men Type: BLOOD SPECIMENOrdering Facility: [facility] Address: [address] [place] [address] Performed By: #### 5 7021-8 ####[facility] BIENVENIDOMariannaNCKATERINA [id number] [place] [address] [place] RBC (Bld) [#/Vol] 3.76 10*6/uL Low 4.20-6.00 [facility] Comment on above: Order Comment: Speci men Type: BLOOD SPECIMENOrdering Facility: [facility] Address: [address] [place] [address] Performed By: #### 5 7021-8 ####[facility] BIENVENIDOGRASS VALLEYNCLIA [id number] [place] [address] [place] WBC (Bld) [#/Vol] 6.18 10*3/uL Normal 3.70-11.00 [facility] Comment on above: Order Comment: Speci men Type: BLOOD SPECIMENOrdering Facility: [facility] Address: [address] [place] [address] Performed By: #### 5 7021-8 ####[facility]ITALNCLIA [id number] [place] [address] [place] CNOVSPon 01-21-2024 CNOVSP Normal [facility] CNPNon 12-30-2023 CNPN Normal [facility] CNOVon 12-24-2023 CNOV Normal [facility] XR HIP 3V PELV+ AP/LAT LTon 12-24-2023 XR HIP 3V PELV+ AP/LAT LT Normal [facility] Basic metabolic 2000 panelon 12-17-2023 Anion gap [Moles/Vol] 11 mmol/L Normal 8-15 [facility] Comment on above: Order Comment: Speci men Type: BLOOD SPECIMENOrdering Facility: [facility] Address: [address] [place] [address] Performed By: #### 2 4321-2 ####[facility] MILLTOWNCLIA [id number] [place] [address] [place] Calcium [Mass/Vol] 9.2 mg/dL Normal 8.5-10.2 [facility] Comment on above: Order Comment: Speci men Type: BLOOD SPECIMENOrdering Facility: [facility] Address: [address] [place] [address] Performed By: #### 2 4321-2 ####[facility] MILLWNCLIA [id number] [place] [address] [place] Chloride [Moles/Vol] 103 mmol/L Normal 98-107 [facility] Comment on above: Order Comment: Speci men Type: BLOOD SPECIMENOrdering Facility: [facility] Address: [address] [place] [address] Performed By: #### 2 4321-2 ####[facility] MILLTOWNCLIA [id number] [place] [address] [place] CO2 [Moles/Vol] 26 mmol/L Normal 22-30 [facility] Comment on above: Order Comment: Speci men Type: BLOOD SPECIMENOrdering Facility: [facility] Address: [address] [place] [address] Performed By: #### 2 4321-2 ####[facility] MILLTOWNCLIA [id number] [place] [address] [place] Creatinine [Mass/Vol] 0.96 mg/dL Normal 0.73-1.22 [facility] Comment on above: Order Comment: Bassam hong Type: BLOOD SPECIMENOrdering Facility: [facility] Address: [address] [place] [address] Performed By: #### 2 4321-2 ####[facility] [id number] [place] [address] [place] Creatinine and Glomerular filtration rate.predicted panel (S/P/Bld) 85 mL/min/1.73m??? Normal >=60 [facility] Comment on above: Order Comment: Bassam hong Type: BLOOD SPECIMENOrdering Facility: [facility] Address: [address] [place] [address] Result Comment: Beth mated Glomerular Filtration Rate (eGFR) is calculated using the 2020 CKD-EPI creatinine equation. This equation utilizes serum creatinine, sex, and age as parameters. The creatinine assay has traceable calibration to isotope dilution-mass spectrometry. Refer to KDIGO guidelines for clinical interpretation. In patients with unstable renal function, e.g. those with acute kidney injury, the eGFR may not accurately reflect actual GFR. Performed By: #### 2 4321-2 ####[facility] [id number] [place] [address] [place] Glucose [Mass/Vol] 151 mg/dL High 74-99 [facility] Comment on above: Order Comment: Bassam hong Type: BLOOD SPECIMENOrdering Facility: [facility] Address: [address] [place] [address] Result Comment: The [place] Diabetes Association (ADA) provides guidance for cutoff values for fasting glucose and random glucose. The ADA defines fasting as no caloric intake for at least 8 hours. Fasting plasma glucose results between 100 to 125 mg/dL indicate increased risk for diabetes (prediabetes).Fasting plasma glucose results greater than or equal to 126 mg/dL meet the criteria for diagnosis of diabetes. In the absence of unequivocal hyperglycemia, results should be confirmed by repeat testing. In a patient with classic symptoms of hyperglycemia or hyperglycemic crisis, random plasma glucose results greater than or equal to 200 mg/dL meet the criteria for diagnosis of diabetes.Reference: Standards of Medical Care in Diabetes 2016, [place] [employer]. Diabetes Care. 2016.39(Suppl 1). Performed By: #### 2 4321-2 ####[facility] [id number] [place] [address] [place] Potassium [Moles/Vol] 4.0 mmol/L Normal 3.7-5.1 [facility] Comment on above: Order Comment: Speci men Type: BLOOD SPECIMENOrdering Facility: [facility] Address: [address] [place] [address] Performed By: #### 2 4321-2 ####[facility] [id number] [place] [address] [place] Sodium [Moles/Vol] 140 mmol/L Normal 136-144 [facility] Comment on above: Order Comment: Speci men Type: BLOOD SPECIMENOrdering Facility: [facility] Address: [address] [place] [address] Performed By: #### 2 4321-2 ####[facility] [id number] [place] [address] [place] Urea nitrogen [Mass/Vol] 17 mg/dL Normal 9-24 [facility] Comment on above: Order Comment: Speci men Type: BLOOD SPECIMENOrdering Facility: [facility] Address: [address] [place] [address] Performed By: #### 2 4321-2 ####[facility] [id number] [place] [address] [place] CBC W Auto Differential pane l (Bld)on 12-17-2023 Basophils (Bld) [#/Vol] 10*3/uL Normal <0.11 [facility] Comment on above: Order Comment: Speci men Type: BLOOD SPECIMENOrdering Facility: [facility] Address: [address] [place] [address] Performed By: #### 5 7021-8 ####[facility] VIKTORWNCLIA [id number] [place] [address] [place] Basophils/100 WBC (Bld) 0.5 % Normal [facility] Comment on above: Order Comment: Speci men Type: BLOOD SPECIMENOrdering Facility: [facility] Address: [address] [place] [address] Performed By: #### 5 7021-8 ####[facility] BIENVENIDOWANGELICALIA [id number] [place] [address] [place] Differential cell count method Nom (Bld) Auto Normal [facility] Comment on above: Order Comment: Speci men Type: BLOOD SPECIMENOrdering Facility: [facility] Address: [address] [place] [address] Performed By: #### 5 7021-8 ####[facility] BIENVENIDOMariannaANGELICALIA [id number] [place] [address] [place] Eosinophils (Bld) [#/Vol] 0.23 10*3/uL Normal <0.46 [facility] Comment on above: Order Comment: Speci men Type: BLOOD SPECIMENOrdering Facility: [facility] Address: [address] [place] [address] Performed By: #### 5 7021-8 ####[facility] BIENVENIDOCRUZLIA [id number] [place] [address] [place] Eosinophils/100 WBC (Bld) 5.2 % Normal [facility] Comment on above: Order Comment: Speci men Type: BLOOD SPECIMENOrdering Facility: [facility] [facility] Address: [address] [place] [address] Performed By: #### 5 7021-8 ####[facility] BIENVENIDOGRASS VALLEYANGELICALIA [id number] [place] [address] [place] Erythrocyte distribution width (RBC) [Ratio] 20.4 % High 11.5-15.0 [facility] Comment on above: Order Comment: Speci men Type: BLOOD SPECIMENOrdering Facility: [facility] Address: [address] [place] [address] Performed By: #### 5 7021-8 ####[facility] BINEVENIDOGRASS VALLEYNCLIA [id number] [place] [address] [place] Hematocrit (Bld) [Volume fraction] 30.6 % Low 39.0-51.0 [facility] Comment on above: Order Comment: Speci men Type: BLOOD SPECIMENOrdering Facility: [facility] Address: [address] [place] [address] Performed By: #### 5 7021-8 ####[facility] [id number] [place] [address] [place] Hemoglobin (Bld) [Mass/Vol] 9.4 g/dL Low 13.0-17.0 [facility] Comment on above: Order Comment: Speci men Type: BLOOD SPECIMENOrdering Facility: [facility] Address: [address] [place] [address] Performed By: #### 5 7021-8 ####[facility]ITALNCLIA [id number] [place] [address] [place] Immature granulocytes (Bld) [#/Vol] 10*3/uL Normal <0.10 [facility] Comment on above: Order Comment: Speci men Type: BLOOD SPECIMENOrdering Facility: [facility] Address: [address] [place] [address] Performed By: #### 5 7021-8 ####[facility]ITALNCL[facility] [id number] [place] [address] [place] Immature granulocytes/100 WBC (Bld) 0.2 % Normal [facility] Comment on above: Order Comment: Speci men Type: BLOOD SPECIMENOrdering Facility: [facility] Address: [address] [place] [address] Performed By: #### 5 7021-8 ####[facility] MILLWNCLIA [id number] [place] [address] [place] Lymphocytes (Bld) [#/Vol] 1.79 10*3/uL Normal 1.00-4.00 [facility] Comment on above: Order Comment: Speci men Type: BLOOD SPECIMENOrdering Facility: [facility] Address: [address] [place] [address] Performed By: #### 5 7021-8 ####[facility]ITALNCL[facility] [id number] [place] [address] [place] Lymphocytes/100 WBC (Bld) 40.7 % Normal [facility] Comment on above: Order Comment: Speci men Type: BLOOD SPECIMENOrdering Facility: [facility] Address: [address] [place] [address] Performed By: #### 5 7021-8 ####[facility]ITALNCLIA [id number] [place] [address] [place] MCH (RBC) [Entitic mass] 24.8 pg Low 26.0-34.0 [facility] Comment on above: Order Comment: Speci men Type: BLOOD SPECIMENOrdering Facility: [facility] Address: [address] [place] [address] Performed By: #### 5 7021-8 ####[facility] CHILDREN'S HOSPITALLIA [id number] [place] [address] [place] MCHC (RBC) [Mass/Vol] 30.7 g/dL Normal 30.5-36.0 [facility] Comment on above: Order Comment: Speci men Type: BLOOD SPECIMENOrdering Facility: [facility] Address: [address] [place] [address] Performed By: #### 5 7021-8 ####[facility] H[facility]PITALNCLI [id number] [place] [address] [place] MCV (RBC) [Entitic vol] 80.7 fL Normal 80.0-100.0 [facility] Comment on above: Order Comment: Speci men Type: BLOOD SPECIMENOrdering Facility: [facility] Address: [address] [place] [address] Performed By: #### 5 7021-8 ####[facility] [id number] [place] [address] [place] Monocytes (Bld) [#/Vol] 0.27 10*3/uL Normal <0.87 [facility] Comment on above: Order Comment: Speci men Type: BLOOD SPECIMENOrdering Facility: [facility] Address: [address] [place] [address] Performed By: #### 5 7021-8 ####[facility] [id number] [place] [address] [place] Monocytes/100 WBC (Bld) 6.1 % Normal [facility] Comment on above: Order Comment: Speci men Type: BLOOD SPECIMENOrdering Facility: [facility] Address: [address] [place] [address] Performed By: #### 5 7021-8 ####[facility] [id number] [place] [address] [place] Neutrophils (Bld) [#/Vol] 2.08 10*3/uL Normal 1.45-7.50 [facility] Comment on above: Order Comment: Speci men Type: BLOOD SPECIMENOrdering Facility: [facility] Address: [address] [place] [address] Performed By: #### 5 7021-8 ####[facility] [id number] [place] [address] [place] Neutrophils/100 WBC (Bld) 47.3 % Normal [facility] Comment on above: Order Comment: Speci men Type: BLOOD SPECIMENOrdering Facility: [facility] Address: [address] [place] [address] Performed By: #### 5 7021-8 ####[facility] BIENVENIDOMariannaNCMJ [id number] [place] [address] [place] Nucleated RBC (Bld) [#/Vol] 10*3/uL Normal <0.01 [facility] Comment on above: Order Comment: Speci men Type: BLOOD SPECIMENOrdering Facility: [facility] Address: [address] [place] [address] Performed By: #### 5 7021-8 ####[facility] HOSPITALANGELICAKANE [facility] [id number] [place] [address] [place] Nucleated RBC/100 WBC (Bld) [Ratio] 0.0 /100 WBC Normal [facility] Comment on above: Order Comment: Speci men Type: BLOOD SPECIMENOrdering Facility: [facility] Address: [address] [place] [address] Performed By: #### 5 7021-8 ####[facility]ITALA [id number] [place] [address] [place] Platelet mean volume (Bld) [Entitic vol] 8.4 fL Low 9.0-12.7 [facility] Comment on above: Order Comment: Speci men Type: BLOOD SPECIMENOrdering Facility: [facility] Address: [address] [place] [address] Performed By: #### 5 7021-8 ####[facility]ITALNCLIA [id number] [place] [address] [place] Platelets (Bld) [#/Vol] 203 10*3/uL Normal 150-400 [facility] Comment on above: Order Comment: Speci men Type: BLOOD SPECIMENOrdering Facility: [facility] Address: [address] [place] [address] Performed By: #### 5 7021-8 ####[facility]ITALNCLIA [id number] [place] [address] [place] RBC (Bld) [#/Vol] 3.79 10*6/uL Low 4.20-6.00 [facility] Comment on above: Order Comment: Speci men Type: BLOOD SPECIMENOrdering Facility: [facility] Address: [address] [place] [address] Performed By: #### 5 7021-8 ####[facility]ITALNCLIA [id number] [place] [address] [place] WBC (Bld) [#/Vol] 4.40 10*3/uL Normal 3.70-11.00 [facility] Comment on above: Order Comment: Speci men Type: BLOOD SPECIMENOrdering Facility: [facility] Address: [address] [place] [address] Performed By: #### 5 7021-8 ####[facility]ITALNCLIA [id number] [place] [address] [place] HGB ELECTROPHORESIS FOR EVAL (LAB ORDER)on 12-17-2023 Hemoglobin A (Bld) [Mass fraction] 97.3 % Normal 96.2-98.0 [facility] Comment on above: Order Comment: Speci men Type: BLOOD SPECIMENOrdering Facility: [facility] Address: [address] [place] [address] Performed By: #### H GBELEV ####[facility] LABCLIA [id number] [place] [address] [place] Hemoglobin A2 (Bld) [Mass fraction] 2.7 % Normal 2.0-3.1 [facility] Comment on above: Order Comment: Speci men Type: BLOOD SPECIMENOrdering Facility: [facility] Address: [address] [place] [address] Performed By: #### H GBELEV ####[facility] LABIA [id number] [place] [address] [place] Hemoglobin Unsp Elph (Bld) [Mass fraction] No abnormal hemoglobin identified. Normal No abnormal hemoglobin identified. [facility] Comment on above: Order Comment: Speci men Type: BLOOD SPECIMENOrdering Facility: [facility] Address: [address] [place] [address] Performed By: #### H GBELEV ####[facility] LABIA [id number] [place] [address] [place] RBC PARAMETERS FOR HB IDon 0 12-17-2023 Erythrocyte distribution width (RBC) [Ratio] 20.5 % High 11.5-15.0 [facility] Comment on above: Order Comment: Speci men Type: BLOOD SPECIMENOrdering Facility: [facility] Address: [address] [place] [address] Performed By: #### L [id number] ####[facility] [id number] [place] [address] [place] Hematocrit (Bld) [Volume fraction] 31.3 % Low 39.0-51.0 [facility] Comment on above: Order Comment: Speci men Type: BLOOD SPECIMENOrdering Facility: [facility] Address: [address] [place] [address] Performed By: #### L [id number] ####[facility] LABIA [id number] [place] [address] [place] Hemoglobin (Bld) [Mass/Vol] 9.5 g/dL Low 13.0-17.0 [facility] Comment on above: Order Comment: Speci men Type: BLOOD SPECIMENOrdering Facility: [facility] Address: [address] [place] [address] Performed By: #### L [id number] ####[facility] LABIA [id number] [place] [address] [place] MCH (RBC) [Entitic mass] 25.4 pg Low 26.0-34.0 [facility] Comment on above: Order Comment: Speci men Type: BLOOD SPECIMENOrdering Facility: [facility] Address: [address] [place] [address] Performed By: #### L [id number] ####[facility] LABCLIA [id number] [place] [address] [place] MCHC (RBC) [Mass/Vol] 30.4 g/dL Low 30.5-36.0 [facility] Comment on above: Order Comment: Speci men Type: BLOOD SPECIMENOrdering Facility: [facility] Address: [address] [place] [address] Performed By: #### L [id number] ####[facility] LABIA [id number] [place] [address] [place] MCV (RBC) [Entitic vol] 83.7 fL Normal 80.0-100.0 [facility] Comment on above: Order Comment: Speci men Type: BLOOD SPECIMENOrdering Facility: [facility] Address: [address] [place] [address] Performed By: #### L [id number] ####[facility] LABCLIA [id number] [place] [address] [place] RBC (Bld) [#/Vol] 3.74 10*6/uL Low 4.20-6.00 [facility] Comment on above: Order Comment: Speci men Type: BLOOD SPECIMENOrdering Facility: [facility] Address: [address] [place] [address] Performed By: #### L [id number] ####[facility] LABCLIA [id number] [place] [address] [place] CBC W/Diff, Automatedon 09-0 Anisocytosis Ql (Bld) 2+ Normal [facility] Comment on above: Performed By: #### L 100.0100, L501.2450, L500.4050 #### [facility] [address] [place], [address] OVALOCYTE 2+ Normal [facility] Comment on above: Performed By: #### L 100.0100, L501.2450, L500.4050 #### [facility] [address] [place], [address] SCHISTOCYTES 1+ Normal [facility] Comment on above: Performed By: #### L 100.0100, L501.2450, L500.4050 #### [facility] [address] [place], [address] TEAR DROP 1+ Normal [facility] Comment on above: Performed By: #### L 100.0100, L501.2450, L500.4050 #### [facility] [address] [place], [address] PLT EST ADEQUATE Normal ADEQ [facility] Comment on above: Performed By: #### L 100.0100, L501.2450, L500.4050 #### [facility] [address] [place], [address] SMEAR COMMENT SCANNED Normal [facility] Comment on above: Performed By: #### L 100.0100, L501.2450, L500.4050 #### [facility] [address] [place], [address] CNPNon 12-11-2023 CNPN Normal [facility] Metabolic [facility] ilon 12-11-2023 Albumin [Mass/Vol] 3.6 g/dL Normal 3.2-5.0 [facility] Comment on above: Performed By: #### L 100.0100, L501.2450, L500.4050 #### [facility] [address] [place], [address] Albumin/Globulin [Mass ratio] 1.1 {ratio} Normal 0.9-2.4 [facility] Comment on above: Performed By: #### L 100.0100, L501.2450, L500.4050 #### [facility] [address] [place], [address] ALK P 89 U/L Normal 45-117 [facility] Comment on above: Performed By: #### L 100.0100, L501.2450, L500.4050 #### [facility] [address] [place], [address] ALT [Catalytic activity/Vol] 36 U/L Normal 16-61 [facility] Comment on above: Performed By: #### L 100.0100, L501.2450, L500.4050 #### [facility] [address] [place], [address] AST [Catalytic activity/Vol] 23 U/L Normal 15-37 [facility] Comment on above: Performed By: #### L 100.0100, L501.2450, L500.4050 #### [facility] [address] [place], [address] Bilirubin [Mass/Vol] 0.50 mg/dL Normal 0.20-1.00 [facility] Comment on above: Result Comment: For patients on eltrombopag therapy, use of Dimension [employer] TBIL is not recommended. Performed By: #### L 100.0100, L501.2450, L500.4050 #### [facility] [address] [place], [address] BUN/CRE 23.1 RATIO High 10-20 [facility] Comment on above: Performed By: #### L 100.0100, L501.2450, L500.4050 #### [facility] [address] [place], [address] CA,Total 9.4 mg/dL Normal 8.5-10.1 [facility] Comment on above: Performed By: #### L 100.0100, L501.2450, L500.4050 #### [facility] [address] [place], [address] Chloride [Moles/Vol] 107 mmol/L Normal 98-107 [facility] Comment on above: Performed By: #### L 100.0100, L501.2450, L500.4050 #### [facility] [address] [place], [address] CO2 [Moles/Vol] 27.0 mmol/L Normal 21.0-32.0 [facility] Comment on above: Performed By: #### L 100.0100, L501.2450, L500.4050 #### [facility] [address] [place], [address] Creatinine [Mass/Vol] 0.95 mg/dL Normal 0.70-1.30 [facility] Comment on above: Result Comment: The validity of the calculated GFR GFRAA in patients over 70 years has not been determined. Clinical correlation is essential. Performed By: #### L 100.0100, L501.2450, L500.4050 #### [facility] [address] [place], [address] ECRCL 70.00 ml/min Normal [facility] Comment on above: Performed By: #### L 100.0100, L501.2450, L500.4050 #### [facility] [address] [place], [address] EST GFR - AA 100 mL/min Normal >60 [facility] Comment on above: Result Comment: Afri can Angolan GFR Calc Performed By: #### L 100.0100, L501.2450, L500.4050 #### [facility] [address] [place], [address] GAP 5 Normal 5-15 [facility] Comment on above: Performed By: #### L 100.0100, L501.2450, L500.4050 #### [facility] [address] [place], [address] GFR/1.73 sq M.predicted among non-blacks MDRD (S/P/Bld) [Vol rate/Area] 83 mL/min/{1.73_m2} Normal >60 [facility] Comment on above: Result Comment: Non- GFR Calc Performed By: #### L 100.0100, L501.2450, L500.4050 #### [facility] [address] [place], [address] Globulin (S) [Mass/Vol] 3.4 g/dL Normal 2.2-4.2 [facility] Comment on above: Performed By: #### L 100.0100, L501.2450, L500.4050 #### [facility] [address] [place], [address] Glucose [Mass/Vol] 104 mg/dL Normal 74-106 [facility] Comment on above: Result Comment: Fast ing Glucose result from 100 to 125 mg/dL suggests IMPAIRED HOMEOSTASIS per A.D.A. criteria. Performed By: #### L 100.0100, L501.2450, L500.4050 #### [facility] [address] [place], [address] Potassium [Moles/Vol] 3.8 mmol/L Normal 3.5-5.1 [facility] Comment on above: Performed By: #### L 100.0100, L501.2450, L500.4050 #### [facility] [address] [place], [address] Sodium [Moles/Vol] 139 mmol/L Normal 136-145 [facility] Comment on above: Performed By: #### L 100.0100, L501.2450, L500.4050 #### [facility] [address] [place], [address] T PROT 7.0 g/dL Normal 6.4-8.2 [facility] Comment on above: Performed By: #### L 100.0100, L501.2450, L500.4050 #### [facility] [address] [place], [address] Urea nitrogen [Mass/Vol] 22 mg/dL High 7-18 [facility] Comment on above: Performed By: #### L 100.0100, L501.2450, L500.4050 #### [facility] [address] [place], [address] Emergency Department Summary on 12-11-2023 Emergency Department Summary [facility] Medical Records Department [address] [place] [address] Emergency Department Summary 12/11/23 MR#: [id number] Acct: [id number] Name: LUTHER CASTILLO II Rep #: [id number] : 1955 68 From: Rubén Liu DO PCP: Dr. López Ocampo MD Status:REG ER Location: ED HPI History of Present Illness Chief Complaint: Flank Pain Narrative Narrative: Patient is a 68-year-old male with a past medical history of prostate cancer who presented to the emergency department with chief complaint of abnormal CT abdomen pelvis. Patient states that normally after he gets that shot for his prostate cancer he will have pain however he states that this has been going on for 3 weeks and usually he is better by now which things have not improved prompting him to have a CT in outpatient setting by his specialist. He states that today he was called by them and notified to come to the Emergency Department as there was concern for appendicitis. Patient states that his pain is mainly in the left side of his back. He states that he takes ibuprofen does help his pain. PFSH PFSH Home Medications ???Medication ???Instructions ???Recorded ???Last Taken ???Type abiraterone 250 mg tablet 1,000 mg PO DAILY prostate cancer 12/11/23 Unknown History atorvastatin 20 mg tablet 20 mg PO DAILY cholesterol 12/11/23 Unknown History prednisone 5 mg tablet 5 mg PO BID prostate 12/11/23 Unknown History tamsulosin 0.4 mg capsule 0.4 mg PO DAILY prostate 12/11/23 Unknown History Allergy/AdvReac Type Severity Reaction Status Date / Time No Known Allergies Allergy Verified 12/11/23 10:39 Social History Smoking Status: Never smoker ROS ROS ED ROS Narrative Constitutional: Denies any fevers, chills, headaches, lightness, dizziness Eyes: Denies changes double vision blurry vision Cardiovascular: Denies chest pain or palpitations Respiratory: Denies coughing wheezing shortness of breath Abdomen: Denies any abdominal pain nausea vomiting diarrhea : Denies any urinary symptoms Neurological: Denies any numbness, weakness, tingling Musculoskeletal: Complains of left-sided back pain as noted above Skin: Denies rashes or lesions EXAM Physical Exam Narrative Exam Narrative: General: Patient was lying in bed rest comfortably did not appear to be in acute distress Head: Atraumatic normocephalic Eyes: PERRL bilaterally, EOMI bilateral, no conjunctival injection noted Neck: Soft, supple, trach midline Cardiovascular: Regular rate and rhythm no murmurs gallops rubs noted Respiratory: Clear to auscultation bilaterally no rales rhonchi wheeze noted Abdomen: Soft, nondistended, nontender to palpation Musculoskeletal: No CVA tenderness noted on exam, no midline tenderness palpation in the thoracolumbar spine Extremities: +5/5 strength noted in the bilateral upper and lower extremities, no pedal edema noted exam Neurological: Patient was following commands knew that he was at [facility] year is 2023 Skin: Warm, dry, intact Const Vital Signs: 12/11/23 10:38 12/11/23 12:38 Temperature 97 F L Temperature Source Temporal Pulse Rate 105 H 78 Respiratory Rate 14 16 Blood Pressure 133/78 H 131/73 H Blood Pressure Mean 96 92 Pulse Ox 92 98 Oxygen Delivery Method Room Air Room Air MDM MDM MDM Narrative Medical decision making narrative: Patient is a 68-year-old male who presented to the Emergency Department with a chief complaint of abnormal CT abdomen pelvis with concern that was read as acute appendicitis. Patient will have a workup performed here on the differential diagnose includes but not limited to appendicitis, urolithiasis, UTI. Once workup is obtained reviewed he will be reevaluated. Patient had a CT lumbar spine with IV contrast yesterday that was read as is reasonable probability mild acute uncomplicated appendicitis. Position right lower quadrant. Clinical correlation was indicated. As approximately symmetrical bilateral perineal stranding unlikely acute congestive/inflammatory. Sclerotic bone metastases most of all of which lacking corresponding increase in significant activity on the 2021 most recent nuclear bone scan no lytic or otherwise destructive lesions noted. Mildly atelectatic lung bases subcentimeter probable hepatic cyst. Lumbar spine showed no destructive osseous lesions. Sclerotic bone metastases. Patient's CBC was largely unremarkable no leukocytosis white blood count normal at 8.2, hemoglobin was 9.6, platelet count was 205. Patient sodium normal at 139, potassium normal at 3.8, creatinine normal at 0.95. Patient's AST and ALT were 23 and 36 respectively. Patient lipase normal at 25. Patient's urinalysis showed no blood no evidence of infection. I called (more content not included)... Normal [facility] Lipaseon 12-11-2023 Lipase [Catalytic activity/Vol] 25 U/L Normal 13-75 [facility] Comment on above: Result Comment: Roger abdul note: LIPASE revised reference range effective 22. New Lipase methodology. Expected to produce lower values than the previous assay method. NEW Reference Range: 13 - 75 U/L Performed By: #### B TS, L300.4310, L300.3900 #### [facility] [address] [place], [address] Urinalysis, Completeon 12-10 BACTERIA 0 SEEN Normal None Seen [facility] Comment on above: Order Comment: CLEAN CATCH Performed By: #### L 400.0001 #### [facility] [address] [place], [address] EPI,SQUAMOUS 0 SEEN Normal 0-5 [facility] Comment on above: Order Comment: CLEAN CATCH Performed By: #### L 400.0001 #### [facility] [address] [place], [address] Mucus Ql (Urine sed) 0 SEEN Normal [facility] Comment on above: Order Comment: CLEAN CATCH Performed By: #### L 400.0001 #### [facility] [address] [place], [address] RBC 0 SEEN Normal 0-5 [facility] Comment on above: Order Comment: CLEAN CATCH Performed By: #### L 400.0001 #### [facility] [address] [place], [address] WBC 0 SEEN Normal 0-5 [facility] Comment on above: Order Comment: CLEAN CATCH Performed By: #### L 400.0001 #### [facility] [address] [place], [address] CT ABD/PEL WO IVCONon 2023 CT ABD/PEL WO IVCON Normal [facility] CT Abdomen and Pelvis WO con traston 12-10-2023 * * *Final Report* * * DATE OF EXAM: Dec 10 2023 3:53PM [facility] 05[facility] - CT ABD/PEL WO IVCON / PROCEDURE REASON: multiple diagnoses * * * * Physician Interpretation * * * * EXAMINATION: CT ABD/PEL WO IVCON, CT LUMBAR SPINE W IVCON CLINICAL HISTORY: Acute left-sided abdominal and back pain, background history of prostate cancer metastatic to bone TECHNIQUE: Non-IV contrast imaging of the abdomen and pelvis was performed using standard technique, scanning from just above the dome of the diaphragm to the symphysis pubis. Unenhanced imaging is limited for the evaluation of some intra-abdominal and pelvic pathology. Subsequent post IV contrast imaging lumbar spine with sagittal and coronal reformat. MQ: CTAPWO_3 Contrast: IV: 100 mL Omnipaque 300 Oral: 10 ml of Omni 240 10-25ml diluted with water CT Radiation dose: Integrated Dose-length product (DLP) for this visit = 489 (accession [id number]), 1008 (accession [id number]) mGy*cm. CT Dose Reduction Employed: Automated exposure control(AEC) and iterative recon COMPARISON: Whole-body nuclear medicine bone scan 08/24/2021, chest radiograph 06/11/2023 RESULT: Fruit Loader/topogram: Frontal and lateral images. Bowel gas pattern nonobstructive. Hypoexpanded lung bases crowding vessels and markings. External artifacts. ABDOMEN/PELVIS: Liver: Nonfatty. Normal size. Inferior right lobe subcapsular medial several millimeter hypodensity having the appearance of cysts. No suspect lesions. Biliary: Mildly contracted gallbladder. Inconspicuous bile ducts. Spleen: No splenomegaly. Pancreas: Unremarkable. Adrenals: No mass. Kidneys: Approximately symmetric perirenal stranding but otherwise unremarkable; no calculi, no evident lesions, no hydronephrosis, no peripelvic or periureteral stranding. GI Tract: 1. Fluid-filled variably mildly distended appendix having diameter up to 11 mm proximally (for example image 81 series 5 axial, image 33 series 7 coronal reformat, image 30 series 8 sagittal reformat). No periappendiceal stranding, focal fluid accumulation, calcified appendicolith. Appendix positioned in the right lower quadrant. 2. Unobstructed bowel. Administered enteric contrast occupying several proximal mid small bowel loops. Lymph Nodes: Normal-sized lymph nodes Mesentery/peritoneum: No ascites. Retroperitoneum: No mass. Vasculature: No aortoiliac aneurysm Pelvis: No mass or ascites. Bladder unremarkable and not overdistended Bones/Soft Tissues: Multiple sclerotic bone lesions most or all of which lacking corresponding scintigraphic activity increase on 2021 bone scan. Includes rib, spinal, pelvic, proximal femoral sclerotic lesions. No expansile, lytic, destructive lesions. No identified acute fracture. Lower thorax: Hypoexpanded lung bases having atelectasis including marginating left posterior basilar subpleural consolidative atelectasis. LUMBAR SPINE: Counting reference: Lumbosacral junction. For the purposes of this report, upper margin L4 pedicles is considered the level of the iliac crest and assume there are 5 lumbar-type vertebrae. Anatomic variant: None. Alignment: Scoliosis. No acute misalignment focally. Bone marrow /fracture: Sclerotic bone lesions. No evident lytic, expansile, destructive lesions. No acute traumatic deformities. No identified acute disc extrusion. No evident epidural tumor. Paraspinal soft tissues: The paraspinal soft tissues planes are maintained. Lower thoracic spine: No acute findings Canal and foramina: Multilevel degenerative central and foraminal encroachment lumbar spine DIVISION OF RADIOLOGY Provider, [facility] - 12/10/2023 * * *Final Report* * * DATE OF EXAM: Dec 10 2023 3:53PM [facility] 0531 - CT ABD/PEL WO IVCON / PROCEDURE REASON: multiple diagnoses * * * * Physician Interpretation * * * * EXAMINATION: CT ABD/PEL WO IVCON, CT LUMBAR SPINE W IVCON CLINICAL HISTORY: Acute left-sided abdominal and back pain, background history of prostate cancer metastatic to bone TECHNIQUE: Non-IV contrast imaging of the abdomen and pelvis was performed using standard technique, scanning from just above the dome of the diaphragm to the symphysis pubis. Unenhanced imaging is limited for the evaluation of some intra-abdominal and pelvic pathology. Subsequent post IV contrast imaging lumbar spine with sagittal and coronal reformat. MQ: CTAPWO_3 Contrast: IV: 100 mL Omnipaque 300 Oral: 10 ml of Omni 240 10-25ml diluted with water CT Radiation dose: Integrated Dose-length product (DLP) for this visit = 489 (accession [id number]), 1008 (accession [id number]) mGy*cm. CT Dose Reduction Employed: Automated exposure control(AEC) and iterative recon COMPARISON: Whole-body nuclear medicine bone scan 08/24/2021, chest radiograph 06/11/2023 RESULT: Fruit Loader/topogram: Frontal and lateral images. Bowel gas pattern nonobstructive. Hypoexpanded lung bases crowding vessels and markings. External artifacts. ABDOMEN/PELVIS: Liver: Nonfatty. Normal size. Inferior right lobe subcapsular medial several millimeter hypodensity having the appearance of cysts. No suspect lesions. Biliary: Mildly contracted gallbladder. Inconspicuous bile ducts. Spleen: No splenomegaly. Pancreas: Unremarkable. Adrenals: No mass. Kidneys: Approximately symmetric perirenal stranding but otherwise unremarkable; no calculi, no evident lesions, no hydronephrosis, no peripelvic or periureteral stranding. GI Tract: 1. Fluid-filled variably mildly distended appendix having diameter up to 11 mm proximally (for example image 81 series 5 axial, image 33 series 7 coronal reformat, image 30 series 8 sagittal reformat). No periappendiceal stranding, focal fluid accumulation, calcified appendicolith. Appendix positioned in the right lower quadrant. 2. Unobstructed bowel. Administered enteric contrast occupying several proximal mid small bowel loops. Lymph Nodes: Normal-sized lymph nodes Mesentery/peritoneum: No ascites. Retroperitoneum: No mass. Vasculature: No aortoiliac aneurysm Pelvis: No mass or ascites. Bladder unremarkable and not overdistended Bones/Soft Tissues: Multiple sclerotic bone lesions most or all of which lacking corresponding scintigraphic activity increase on 2022 bone scan. Includes rib, spinal, pelvic, proximal femoral sclerotic lesions. No expansile, lytic, destructive lesions. No identified acute fracture. Lower thorax: Hypoexpanded lung bases having atelectasis including marginating left posterior basilar subpleural consolidative atelectasis. LUMBAR SPINE: Counting reference: Lumbosacral junction. For the purposes of this report, upper margin L4 pedicles is considered the level of the iliac crest and assume there are 5 lumbar-type vertebrae. Anatomic variant: None. Alignment: Scoliosis. No acute misalignment focally. Bone marrow /fracture: Sclerotic bone lesions. No evident lytic, expansile, destructive lesions. No acute traumatic deformities. No identified acute disc extrusion. No evident epidural tumor. Paraspinal soft tissues: The paraspinal soft tissues planes are maintained. Lower thoracic spine: No acute findings Canal and foramina: Multilevel degenerative central and foraminal encroachment lumbar spine IMPRESSION IMPRESSION: Abdomen and pelvis: 1. Reasonable probability mild acute uncomplicated appendicitis. Positioned right lower quadrant. Clinical correlation indicated. 2. Approximately symmetric bilateral perirenal stranding unlikely acute congestive/inflammatory. Nonetheless, clinical correlation recommended. 3. Sclerotic bone metastases, most or all of which lacking corresponding increased scintigraphic activity on the 2021 most recent nuclear medicine bone scan. No lytic or otherwise destructive bone lesions. 4. Mildly atelectatic lung bases. Subcentimeter probable hepatic cyst Lumbar spine: No destructive osseous lesions, acute traumatic deformity, or identified acute disc extrusion. Sclerotic bone metastases. Degenerative scoliotic lumbar spine having multilevel central and foraminal degenerative encroachment Money Position Officer: APRIL Transcribe Date/Time: Dec 10 2023 4:00P Dictated by : MELONIE TEMPLETON MD This examination was interpreted and the report reviewed and electronically signed by: MELONIE TEMPLETON MD on Dec 10 2023 4:46PM EST [facility] Radiology Study observation (narrative) [facility] CT LUMBAR SPINE W IVCONon CT LUMBAR SPINE W IVCON Normal [facility] CT Lumbar spine W contrast I Von 12-10-2023 * * *Final Report* * * DATE OF EXAM: Dec 10 2023 3:55PM [facility] 0012 - CT LUMBAR SPINE W IVCON / PROCEDURE REASON: multiple diagnoses * * * * Physician Interpretation * * * * EXAMINATION: CT ABD/PEL WO IVCON, CT LUMBAR SPINE W IVCON CLINICAL HISTORY: Acute left-sided abdominal and back pain, background history of prostate cancer metastatic to bone TECHNIQUE: Non-IV contrast imaging of the abdomen and pelvis was performed using standard technique, scanning from just above the dome of the diaphragm to the symphysis pubis. Unenhanced imaging is limited for the evaluation of some intra-abdominal and pelvic pathology. Subsequent post IV contrast imaging lumbar spine with sagittal and coronal reformat. MQ: CTAPWO_3 Contrast: IV: 100 mL Omnipaque 300 Oral: 10 ml of Omni 240 10-25ml diluted with water CT Radiation dose: Integrated Dose-length product (DLP) for this visit = 489 (accession [id number]), 1008 (accession [id number]) mGy*cm. CT Dose Reduction Employed: Automated exposure control(AEC) and iterative recon COMPARISON: Whole-body nuclear medicine bone scan 08/24/2021, chest radiograph 06/11/2023 RESULT: Fruit Loader/topogram: Frontal and lateral images. Bowel gas pattern nonobstructive. Hypoexpanded lung bases crowding vessels and markings. External artifacts. ABDOMEN/PELVIS: Liver: Nonfatty. Normal size. Inferior right lobe subcapsular medial several millimeter hypodensity having the appearance of cysts. No suspect lesions. Biliary: Mildly contracted gallbladder. Inconspicuous bile ducts. Spleen: No splenomegaly. Pancreas: Unremarkable. Adrenals: No mass. Kidneys: Approximately symmetric perirenal stranding but otherwise unremarkable; no calculi, no evident lesions, no hydronephrosis, no peripelvic or periureteral stranding. GI Tract: 1. Fluid-filled variably mildly distended appendix having diameter up to 11 mm proximally (for example image 81 series 5 axial, image 33 series 7 coronal reformat, image 30 series 8 sagittal reformat). No periappendiceal stranding, focal fluid accumulation, calcified appendicolith. Appendix positioned in the right lower quadrant. 2. Unobstructed bowel. Administered enteric contrast occupying several proximal mid small bowel loops. Lymph Nodes: Normal-sized lymph nodes Mesentery/peritoneum: No ascites. Retroperitoneum: No mass. Vasculature: No aortoiliac aneurysm Pelvis: No mass or ascites. Bladder unremarkable and not overdistended Bones/Soft Tissues: Multiple sclerotic bone lesions most or all of which lacking corresponding scintigraphic activity increase on 202 bone scan. Includes rib, spinal, pelvic, proximal femoral sclerotic lesions. No expansile, lytic, destructive lesions. No identified acute fracture. Lower thorax: Hypoexpanded lung bases having atelectasis including marginating left posterior basilar subpleural consolidative atelectasis. LUMBAR SPINE: Counting reference: Lumbosacral junction. For the purposes of this report, upper margin L4 pedicles is considered the level of the iliac crest and assume there are 5 lumbar-type vertebrae. Anatomic variant: None. Alignment: Scoliosis. No acute misalignment focally. Bone marrow /fracture: Sclerotic bone lesions. No evident lytic, expansile, destructive lesions. No acute traumatic deformities. No identified acute disc extrusion. No evident epidural tumor. Paraspinal soft tissues: The paraspinal soft tissues planes are maintained. Lower thoracic spine: No acute findings Canal and foramina: Multilevel degenerative central and foraminal encroachment lumbar spine DIVISION OF RADIOLOGY Provider, 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 Unenhanced imaging is limited for the evaluation of some intra-abdominal and pelvic pathology. Subsequent post IV contrast imaging lumbar spine with sagittal and coronal reformat. MQ: CTAPWO_3 Contrast: IV: 100 mL Omnipaque 300 Oral: 10 ml of Omni 240 10-25ml diluted with water CT Radiation dose: Integrated Dose-length product (DLP) for this visit = 489 (accession [id number]), 1008 (accession [id number]) mGy*cm. CT Dose Reduction Employed: Automated exposure control(AEC) and iterative recon COMPARISON: Whole-body nuclear medicine bone scan 08/24/2021, chest radiograph 06/11/2023 RESULT: Fruit Loader/topogram: Frontal and lateral images. Bowel gas pattern nonobstructive. Hypoexpanded lung bases crowding vessels and markings. External artifacts. ABDOMEN/PELVIS: Liver: Nonfatty. Normal size. Inferior right lobe subcapsular medial several millimeter hypodensity having the appearance of cysts. No suspect lesions. Biliary: Mildly contracted gallbladder. Inconspicuous bile ducts. Spleen: No splenomegaly. Pancreas: Unremarkable. Adrenals: No mass. Kidneys: Approximately symmetric perirenal stranding but otherwise unremarkable; no calculi, no evident lesions, no hydronephrosis, no peripelvic or periureteral stranding. GI Tract: 1. Fluid-filled variably mildly distended appendix having diameter up to 11 mm proximally (for example image 81 series 5 axial, image 33 series 7 coronal reformat, image 30 series 8 sagittal reformat). No periappendiceal stranding, focal fluid accumulation, calcified appendicolith. Appendix positioned in the right lower quadrant. 2. Unobstructed bowel. Administered enteric contrast occupying several proximal mid small bowel loops. Lymph Nodes: Normal-sized lymph nodes Mesentery/peritoneum: No ascites. Retroperitoneum: No mass. Vasculature: No aortoiliac aneurysm Pelvis: No mass or ascites. Bladder unremarkable and not overdistended Bones/Soft Tissues: Multiple sclerotic bone lesions most or all of which lacking corresponding scintigraphic activity increase on 2021 bone scan. Includes rib, spinal, pelvic, proximal femoral sclerotic lesions. No expansile, lytic, destructive lesions. No identified acute fracture. Lower thorax: Hypoexpanded lung bases having atelectasis including marginating left posterior basilar subpleural consolidative atelectasis. LUMBAR SPINE: Counting reference: Lumbosacral junction. For the purposes of this report, upper margin L4 pedicles is considered the level of the iliac crest and assume there are 5 lumbar-type vertebrae. Anatomic variant: None. Alignment: Scoliosis. No acute misalignment focally. Bone marrow /fracture: Sclerotic bone lesions. No evident lytic, expansile, destructive lesions. No acute traumatic deformities. No identified acute disc extrusion. No evident epidural tumor. Paraspinal soft tissues: The paraspinal soft tissues planes are maintained. Lower thoracic spine: No acute findings Canal and foramina: Multilevel degenerative central and foraminal encroachment lumbar spine IMPRESSION IMPRESSION: Abdomen and pelvis: 1. Reasonable probability mild acute uncomplicated appendicitis. Positioned right lower quadrant. Clinical correlation indicated. 2. Approximately symmetric bilateral perirenal stranding unlikely acute congestive/inflammatory. Nonetheless, clinical correlation recommended. 3. Sclerotic bone metastases, most or all of which lacking corresponding increased scintigraphic activity on the 2021 most recent nuclear medicine bone scan. No lytic or otherwise destructive bone lesions. 4. Mildly atelectatic lung bases. Subcentimeter probable hepatic cyst Lumbar spine: No destructive osseous lesions, acute traumatic deformity, or identified acute disc extrusion. Sclerotic bone metastases. Degenerative scoliotic lumbar spine having multilevel central and foraminal degenerative encroachment Money Position Officer: APRIL Transcribe Date/Time: Dec 10 2023 4:00P Dictated by : MELONIE TEMPLETON MD This examination was interpreted and the report reviewed and electronically signed by: MELONIE TEMPLETON MD on Dec 10 2023 4:46PM EST [facility] Radiology Study observation (narrative) [facility] No Panel Informationon 12-09 IMPRESSION: Abdomen and pelvis: 1. Reasonable probability mild acute uncomplicated appendicitis. Positioned right lower quadrant. Clinical correlation indicated. 2. Approximately symmetric bilateral perirenal stranding unlikely acute congestive/inflammatory. Nonetheless, clinical correlation recommended. 3. Sclerotic bone metastases, most or all of which lacking corresponding increased scintigraphic activity on the 2021 most recent nuclear medicine bone scan. No lytic or otherwise destructive bone lesions. 4. Mildly atelectatic lung bases. Subcentimeter probable hepatic cyst Lumbar spine: No destructive osseous lesions, acute traumatic deformity, or identified acute disc extrusion. Sclerotic bone metastases. Degenerative scoliotic lumbar spine having multilevel central and foraminal degenerative encroachment Money Position Officer: [facility] Transcribe Date/Time: Dec 10 2023 4:00P Dictated by : MELONIE TEMPLETON MD This examination was interpreted and the report reviewed and electronically signed by: MELONIE TEMPLETON MD on Dec 10 2023 4:46PM [facility] DIVISION OF RADIOLOGY No Panel InformationOrdered By: [facility] Provider on 12-10-2023 [facility] CNOVon 12-02-2023 CNOV Normal [facility] Basic metabolic 2000 panelon 11-19-2023 Anion gap [Moles/Vol] 12 mmol/L Normal 8-15 [facility] Comment on above: Order Comment: Speci men Type: BLOOD SPECIMENOrdering Facility: [facility] Address: [address] [place] [address] Performed By: #### 2 4321-2 ####[facility] HOSPITALANGELICAShireen [id number] [place] [address] [place] Calcium [Mass/Vol] 9.2 mg/dL Normal 8.5-10.2 [facility] Comment on above: Order Comment: Speci men Type: BLOOD SPECIMENOrdering Facility: [facility] Address: [address] [place] [address] Performed By: #### 2 4321-2 ####[facility] HOSPITALANGELICALIA [id number] [place] [address] [place] Chloride [Moles/Vol] 102 mmol/L Normal 98-107 [facility] Comment on above: Order Comment: Speci men Type: BLOOD SPECIMENOrdering Facility: [facility] Address: [address] [place] [address] Performed By: #### 2 4321-2 ####[facility] HOSPITALANGELICALIA [id number] [place] [address] [place] CO2 [Moles/Vol] 24 mmol/L Normal 22-30 [facility] Comment on above: Order Comment: Speci men Type: BLOOD SPECIMENOrdering Facility: [facility] Address: [address] [place] [address] Performed By: #### 2 4321-2 ####[facility] HOSPITALLI [id number] [place] [address] [place] Creatinine [Mass/Vol] 1.03 mg/dL Normal 0.73-1.22 [facility] Comment on above: Order Comment: Speci hal Type: BLOOD SPECIMENOrdering Facility: [facility] Address: [address] [place] [address] Performed By: #### 2 4321-2 ####[facility] [id number] [place] [address] [place] Creatinine and Glomerular filtration rate.predicted panel (S/P/Bld) 78 mL/min/1.73m??? Normal >=60 [facility] Comment on above: Order Comment: [facility] Type: BLOOD SPECIMENOrdering Facility: [facility] Address: [address] [place] [address] Result Comment: Beth mated Glomerular Filtration Rate (eGFR) is calculated using the 2020 CKD-EPI creatinine equation. This equation utilizes serum creatinine, sex, and age as parameters. The creatinine assay has traceable calibration to isotope dilution-mass spectrometry. Refer to KDIGO guidelines for clinical interpretation. In patients with unstable renal function, e.g. those with acute kidney injury, the eGFR may not accurately reflect actual GFR. Performed By: #### 2 4321-2 ####[facility] [id number] [place] [address] [place] Glucose [Mass/Vol] 101 mg/dL High 74-99 [facility] Comment on above: Order Comment: Speci men Type: BLOOD SPECIMENOrdering Facility: [facility] Address: [address] [place] [address] Result Comment: The [place] [employer] (ADA) provides guidance for cutoff values for fasting glucose and random glucose. The ADA defines fasting as no caloric intake for at least 8 hours. Fasting plasma glucose results between 100 to 125 mg/dL indicate increased risk for diabetes (prediabetes).Fasting plasma glucose results greater than or equal to 126 mg/dL meet the criteria for diagnosis of diabetes. In the absence of unequivocal hyperglycemia, results should be confirmed by repeat testing. In a patient with classic symptoms of hyperglycemia or hyperglycemic crisis, random plasma glucose results greater than or equal to 200 mg/dL meet the criteria for diagnosis of diabetes.Reference: Standards of Medical Care in Diabetes 2016, [place] [employer]. Diabetes Care. 2016.39(Suppl 1). Performed By: #### 2 4321-2 ####[facility] [id number] [place] [address] [place] Potassium [Moles/Vol] 4.0 mmol/L Normal 3.7-5.1 [facility] Comment on above: Order Comment: Speci men Type: BLOOD SPECIMENOrdering Facility: [facility] Address: [address] [place] [address] Performed By: #### 2 4321-2 ####[facility] [id number] [place] [address] [place] Sodium [Moles/Vol] 138 mmol/L Normal 136-144 [facility] Comment on above: Order Comment: Bassam hong Type: BLOOD SPECIMENOrdering Facility: [facility] Address: [address] [place] [address] Performed By: #### 2 4321-2 ####[facility] [id number] [place] [address] [place] Urea nitrogen [Mass/Vol] 18 mg/dL Normal 9-24 [facility] Comment on above: Order Comment: Speci men Type: BLOOD SPECIMENOrdering Facility: [facility] Address: [address] [place] [address] Performed By: #### 2 4321-2 ####[facility] [id number] [place] [address] [place] CBC W Auto Differential pane l (Bld)on 11-19-2023 Basophils (Bld) [#/Vol] 10*3/uL Normal <0.11 [facility] Comment on above: Order Comment: Speci men Type: BLOOD SPECIMENOrdering Facility: [facility] Address: [address] [place] [address] Performed By: #### 5 7021-8 ####[facility] MILLWNCLIA [id number] [place] [address] [place] Basophils/100 WBC (Bld) 0.2 % Normal [facility] Comment on above: Order Comment: Speci men Type: BLOOD SPECIMENOrdering Facility: [facility] Address: [address] [place] [address] Performed By: #### 5 7021-8 ####[facility] HOSPITALWNCLIA [id number] [place] [address] [place] Differential cell count method Nom (Bld) Auto Normal [facility] Comment on above: Order Comment: Speci men Type: BLOOD SPECIMENOrdering Facility: [facility] Address: [address] [place] [address] Performed By: #### 5 7021-8 ####[facility] MILLWNCLIA [id number] [place] [address] [place] Eosinophils (Bld) [#/Vol] 0.22 10*3/uL Normal <0.46 [facility] Comment on above: Order Comment: Speci men Type: BLOOD SPECIMENOrdering Facility: [facility] Address: [address] [place] [address] Performed By: #### 5 7021-8 ####[facility] MILLTOWNCLIA [id number] [place] [address] [place] Eosinophils/100 WBC (Bld) 3.9 % Normal [facility] Comment on above: Order Comment: Speci men Type: BLOOD SPECIMENOrdering Facility: [facility] Address: [address] [place] [address] Performed By: #### 5 7021-8 ####[facility]ITALNCL[facility] [id number] [place] [address] [place] Erythrocyte distribution width (RBC) [Ratio] 20.5 % High 11.5-15.0 [facility] Comment on above: Order Comment: Speci men Type: BLOOD SPECIMENOrdering Facility: [facility] Address: [address] [place] [address] Performed By: #### 5 7021-8 ####[facility] [id number] [place] [address] [place] Hematocrit (Bld) [Volume fraction] 31.8 % Low 39.0-51.0 [facility] Comment on above: Order Comment: Speci men Type: BLOOD SPECIMENOrdering Facility: [facility] Address: [address] [place] [address] Performed By: #### 5 7021-8 ####[facility] [id number] [place] [address] [place] Hemoglobin (Bld) [Mass/Vol] 9.7 g/dL Low 13.0-17.0 [facility] Comment on above: Order Comment: Speci men Type: BLOOD SPECIMENOrdering Facility: [facility] Address: [address] [place] [address] Performed By: #### 5 7021-8 ####[facility] [id number] [place] [address] [place] Immature granulocytes (Bld) [#/Vol] 10*3/uL Normal <0.10 [facility] Comment on above: Order Comment: Speci men Type: BLOOD SPECIMENOrdering Facility: [facility] Address: [address] [place] [address] Performed By: #### 5 7021-8 ####[facility]ITAL[facility] [id number] [place] [address] [place] Immature granulocytes/100 WBC (Bld) 0.4 % Normal [facility] Comment on above: Order Comment: Speci men Type: BLOOD SPECIMENOrdering Facility: [facility] Address: [address] [place] [address] Performed By: #### 5 7021-8 ####[facility] [id number] [place] [address] [place] Lymphocytes (Bld) [#/Vol] 2.13 10*3/uL Normal 1.00-4.00 [facility] Comment on above: Order Comment: Speci men Type: BLOOD SPECIMENOrdering Facility: [facility] Address: [address] [place] [address] Performed By: #### 5 7021-8 ####[facility] [id number] [place] [address] [place] Lymphocytes/100 WBC (Bld) 37.6 % Normal [facility] Comment on above: Order Comment: Speci men Type: BLOOD SPECIMENOrdering Facility: [facility] Address: [address] [place] [address] Performed By: #### 5 7021-8 ####[facility]ITAL[facility] [id number] [place] [address] [place] MCH (RBC) [Entitic mass] 24.7 pg Low 26.0-34.0 [facility] Comment on above: Order Comment: Speci men Type: BLOOD SPECIMENOrdering Facility: [facility] Address: [address] [place], [place] [address] Performed By: #### 5 7021-8 ####[facility] [id number] [place] [address] [place] MCHC (RBC) [Mass/Vol] 30.5 g/dL Normal 30.5-36.0 [facility] Comment on above: Order Comment: Speci men Type: BLOOD SPECIMENOrdering Facility: [facility] Address: [address] [place] [address] Performed By: #### 5 7021-8 ####[facility] BIENVENIDOESTHER [id number] [place] [address] [place] MCV (RBC) [Entitic vol] 80.9 fL Normal 80.0-100.0 [facility] Comment on above: Order Comment: Speci men Type: BLOOD SPECIMENOrdering Facility: [facility] Address: [address] [place] [address] Performed By: #### 5 7021-8 ####[facility] HOSPITALNCShireen [id number] [place] [address] [place] Monocytes (Bld) [#/Vol] 0.44 10*3/uL Normal <0.87 [facility] Comment on above: Order Comment: Speci men Type: BLOOD SPECIMENOrdering Facility: [facility] Address: [address] [place] [address] Performed By: #### 5 7021-8 ####[facility] HOSPITALNCA [id number] [place] [address] [place] Monocytes/100 WBC (Bld) 7.8 % Normal [facility] Comment on above: Order Comment: Speci men Type: BLOOD SPECIMENOrdering Facility: [facility] Address: [address] [place] [address] Performed By: #### 5 7021-8 ####[facility] HOSPITALLI [id number] [place] [address] [place] Neutrophils (Bld) [#/Vol] 2.85 10*3/uL Normal 1.45-7.50 [facility] Comment on above: Order Comment: Speci men Type: BLOOD SPECIMENOrdering Facility: [facility] Address: [address] [place] [address] Performed By: #### 5 7021-8 ####[facility] BIENVENIDOWANGELICALIA [id number] [place] [address] [place] Neutrophils/100 WBC (Bld) 50.1 % Normal [facility] Comment on above: Order Comment: Speci men Type: BLOOD SPECIMENOrdering Facility: [facility] Address: [address] [place] [address] Performed By: #### 5 7021-8 ####[facility] HOSPITALLIA [id number] [place] [address] [place] Nucleated RBC (Bld) [#/Vol] 10*3/uL Normal <0.01 [facility] Comment on above: Order Comment: Speci men Type: BLOOD SPECIMENOrdering Facility: [facility] Address: [address] [place] [address] Performed By: #### 5 7021-8 ####[facility] [id number] [place] [address] [place] Nucleated RBC/100 WBC (Bld) [Ratio] 0.0 /100 WBC Normal [facility] Comment on above: Order Comment: Speci men Type: BLOOD SPECIMENOrdering Facility: [facility] Address: [address] [place] [address] Performed By: #### 5 7021-8 ####[facility] [id number] [place] [address] [place] Platelet mean volume (Bld) [Entitic vol] 8.5 fL Low 9.0-12.7 [facility] Comment on above: Order Comment: Speci men Type: BLOOD SPECIMENOrdering Facility: [facility] Address: [address] [place] [address] Performed By: #### 5 7021-8 ####[facility] HOSPITALNCLI [id number] [place] [address] [place] Platelets (Bld) [#/Vol] 196 10*3/uL Normal 150-400 [facility] Comment on above: Order Comment: Speci men Type: BLOOD SPECIMENOrdering Facility: [facility] Address: [address] [place] [address] Performed By: #### 5 7021-8 ####[facility]PITALNCLIA [id number] [place] [address] [place] RBC (Bld) [#/Vol] 3.93 10*6/uL Low 4.20-6.00 [facility] Comment on above: Order Comment: Speci men Type: BLOOD SPECIMENOrdering Facility: [facility] Address: [address] [place] [address] Performed By: #### 5 7021-8 ####[facility]OSPITALNCLIA [id number] [place] [address] [place] WBC (Bld) [#/Vol] 5.67 10*3/uL Normal 3.70-11.00 [facility] Comment on above: Order Comment: Speci men Type: BLOOD SPECIMENOrdering Facility: [facility] Address: [address] [place] [address] Performed By: #### 5 7021-8 ####[facility]PITALNCLIA [id number] [place] [address] [place] Ferritin SerPl-mCncon 2023 Ferritin [Mass/Vol] 670.0 ng/mL High 30.3-565.7 [facility] Comment on above: Order Comment: Speci men Type: BLOOD SPECIMENOrdering Facility: [facility] Address: [address] [place] [address] Performed By: #### 2 132-9, 20169-7, 2276-4 ####[facility] LABCLIA [id number] [facility] [id number] [place] [address] [place] Iron and Iron binding capaci ty panelon 11-19-2023 Iron [Mass/Vol] 171 ug/dL Normal 41-186 [facility] Comment on above: Order Comment: Speci men Type: BLOOD SPECIMENOrdering Facility: [facility] Address: [address] [place] [address] Performed By: #### 2 132-9, 64594-6, 2276-4 ####[facility] LABCLIA [id number] [place] [address] [place] Iron binding capacity [Mass/Vol] 271 ug/dL Normal 232-386 [facility] Comment on above: Order Comment: Speci men Type: BLOOD SPECIMENOrdering Facility: [facility] Address: [address] [place] [address] Performed By: #### 2 132-9, 85243-4, 2276-4 ####[facility] LABIA [id number] [place] [address] [place] Iron/TIBC [Molar ratio] 63.1 % High 15.0-57.0 [facility] Comment on above: Order Comment: Speci men Type: BLOOD SPECIMENOrdering Facility: [facility] Address: [address] [place] [address] Performed By: #### 2 132-9, 01420-2, 2276-4 ####[facility] LABIA [id number] [place] [id number] [place] PSA SerPl-ncon 11-19-2023 Prostate specific Ag [Mass/Vol] ng/mL Normal <2.60 [facility] Comment on above: Order Comment: Speci men Type: BLOOD SPECIMENOrdering Facility: [facility] Address: [address] [place] [address] Result Comment: Tota l PSA test methodology used is the Electrochemiluminescence Immunoassay by [employer]. Total PSA values by differing methodologies cannot be interchanged. Performed By: #### 2 857-1 ####[facility] LABCLIA [id number] [place] [id number] [place] Vit B12 SerPl-ncon 11-18- 024 Cobalamin (Vitamin B12) [Mass/Vol] 662 pg/mL Normal 232-1245 [facility] Comment on above: Order Comment: Speci men Type: BLOOD SPECIMENOrdering Facility: [facility] Address: [address] [place] [address] Performed By: #### 2 132-9, 70882-7, 2276-4 ####[facility] LABCLIA [id number] [place] [address] [place] NM CARDIAC PERF STRESS/EXERC ISEon 11-12-2023 NM CARDIAC PERF STRESS/EXERCISE * * *Final Report* * * DATE OF EXAM: Nov 12 2023 10:39AM DOMENIC 0004 - NM CARDIAC PERF STRESS/EXERCISE / PROCEDURE REASON: multiple diagnoses * * * * Physician Interpretation * * * * Stress Unit Aid Report: [facility] Date of service: 11/12/2023 9:07:22 AM Supervising physician: Fannie Madrid MD PATIENT: Name: MR. LUTHER CASTILLO Age: 68 years Gender: M The supervising physician was in the department and immediately available. * * * Final * * * PATIENT: Name: MR. LUTHER CASTILLO Age: 68 years Gender: M CONCLUSIONS: 1. SPECT Perfusion Study: Normal. 2. There is no scintigraphic evidence for inducible ischemia. 3. No evidence of scarred myocardium. 4. Left ventricle is normal in size. The left ventricle systolic function is normal. 5. This is a low risk scan. Gated Stress IR:3D LVEF % 74 Prior Study Comparison No prior nuclear cardiology exam available for comparison. Nuclear Med Report:1-Day Gated SPECT Myocardial Perfusion with Exercise Stress: Myocardial perfusion imaging was performed at rest 30 to 60 minutes following the IV injection of the radiotracer. One minute prior to peak exercise, the patient was injected IV with the radiotracer. Gated post stress tomographic imaging was performed 10 to 20 minutes later. See administered radiotracer and doses below. [facility] Date of service: 11/12/2023 9:07:22 AM Ordering Physician: DORCAS CHAMPAGNE. Requesting Physician: Indication: Abnormal Baseline ECG Interpreting physician: Amee Heath MD Height: 170.18 cm BSA: 1.81 m? Weight: 68.95 kg BMI: 23.8 kg/m? Exam Type: Rest Stress Radiopharm: Tc-99m Tetrofosmin Tc-99m Tetrofosmin Dosage(mCi): 13 35 Atten Correction: not performed not performed Stress Agent: Treadmill Resting Blood Press: 128/73 mmHg Image Quality The overall study imaging quality was deemed to be good. FINDINGS: Stress IR:3D Gated Stress IR:3D LVEF: 74 % ED Volume: 76 ml ES Volume: 20 ml TID: 0.88 Perfusion Findings Stress IR:3D - Summed Score=0 All segments demonstrate normal perfusion. Rest IR:3D - Summed Score=0 All segments demonstrate normal perfusion. Stress IR:3D Rest IR:3D Summed Score=0 Summed Score=0 LEFT VENTRICLE The left ventricle is normal in size. Left ventricular systolic function is normal. Stress Test Findings: There is no scintigraphic evidence for inducible ischemia. There is no evidence of scarring. * * * Final * * * Stress ECG Report: [facility] Date of service: 11/12/2023 9:07:22 AM Ordering physician: DORCAS CHAMPAGNE computer specialist: Marily Peoples Tester [employer] Leakage: Sahara Oswald Interpreting physician: Fannie Madrid MD Patient name: MR. LUTHER CASTILLO Age: 68 years Gender: M Height: 170.18 cm BSA: 1.81 m? Weight: 68.95 kg BMI: 23.8 kg/m? Indication: Abnormal resting ECG Stress ECG Conclusion: Conclusion: Normal Stress ECG Summary: The patient's resting heart rate was 85 bpm and blood pressure was 128/73 mmHg. The patient exercised according to the Willem protocol. The estimated end-exercise MET level achieved using the FRIEND equation * * * was 7.6, which is within the 50th to 75th percentile for age and sex. The estimated end-exercise MET level achieved using the previous ACSM equation was 9.1. The test was terminated due to shortness of breath and the total exercise time was 8 minutes and 0 seconds. Other symptoms during the test included SOB. The maximum heart rate was 166 bpm, which is 111% of the predicted heart rate for age. This is an adequate heart rate response. Peak blood pressure was 160/82 mmHg. The double product achieved was [address]. Medications: Last Used LIPITOR PREDNISONE FLOMAX CALCIUM CARBONATE Resting ECG: Normal Sinus Rhythm Symptoms at rest: No symptoms Exercise Protocol: Willem Stress Exercise Table: +-----+ +------- -+ +---+---+---+- ---+----+ Stage Speed (MPH) Grade(%) Time (min) HR SYS GERRY RPE METS +-----+ +------- -+ +---+---+---+- ---+----+ 1 1.7 10.0 3.0 122 138 78 12.0 4.2 +-----+ +------- -+ +---+---+---+- ---+----+ 2 2.5 12.0 6.0 144 148 72 13.0 6.1 +-----+ +------- -+ +---+---+---+- ---+----+ +-----+ +------- --+ +---+---+---+ ----+----+ Speed (MPH) Grade (%) Time (min) HR SYS GERRY RPE METS +-----+ +------- --+ +---+---+---+ ----+----+ Final 3.4 14.0 8.00 166 160 82 17.0 7.6 +-----+ +------- --+ +---+---+---+ --- (more content not included)... Normal [facility] Heart Perfusion W multipl e states of exerciseon 11-12-2023 * * *Final Report* * * DATE OF EXAM: Nov 12 2023 10:39AM DOMENIC 0004 - PR CARDIAC PERF STRESS/EXERCISE / PROCEDURE REASON: multiple diagnoses * * * * Physician Interpretation * * * * Stress Unit Aid Report: [facility] Date of service: 11/12/2023 9:07:22 AM Supervising physician: Fannie Madrid MD PATIENT: Name: MR. LUTHER CASTILLO Age: 68 years Gender: M The supervising physician was in the department and immediately available. * * * Final * * * PATIENT: Name: MR. LUTHER CASTILLO Age: 68 years Gender: M CONCLUSIONS: 1. SPECT Perfusion Study: Normal. 2. There is no scintigraphic evidence for inducible ischemia. 3. No evidence of scarred myocardium. 4. Left ventricle is normal in size. The left ventricle systolic function is normal. 5. This is a low risk scan. Gated Stress IR:3D LVEF % 74 Prior Study Comparison No prior nuclear cardiology exam available for comparison. Nuclear Med Report:1-Day Gated SPECT Myocardial Perfusion with Exercise Stress: Myocardial perfusion imaging was performed at rest 30 to 60 minutes following the IV injection of the radiotracer. One minute prior to peak exercise, the patient was injected IV with the radiotracer. Gated post stress tomographic imaging was performed 10 to 20 minutes later. See administered radiotracer and doses below. [facility] Date of service: 11/12/2023 9:07:22 AM Ordering Physician: DORCAS CHAMPAGNE. Requesting Physician: Indication: Abnormal Baseline ECG Interpreting physician: Amee Heath MD Height: 170.18 cm BSA: 1.81 m Weight: 68.95 kg BMI: 23.8 kg/m Exam Type: Rest Stress Radiopharm: Tc-99m Tetrofosmin Tc-99m Tetrofosmin Dosage(mCi): 13 35 Atten Correction: not performed not performed Stress Agent: Treadmill Resting Blood Press: 128/73 mmHg Image Quality The overall study imaging quality was deemed to be good. FINDINGS: Stress IR:3D Gated Stress IR:3D LVEF: 74 % ED Volume: 76 ml ES Volume: 20 ml TID: 0.88 Perfusion Findings Stress IR:3D - Summed Score=0 All segments demonstrate normal perfusion. Rest IR:3D - Summed Score=0 All segments demonstrate normal perfusion. Stress IR:3D Rest IR:3D Summed Score=0 Summed Score=0 LEFT VENTRICLE The left ventricle is normal in size. Left ventricular systolic function is normal. Stress Test Findings: There is no scintigraphic evidence for inducible ischemia. There is no evidence of scarring. * * * Final * * * Stress ECG Report: [facility] Date of service: 11/12/2023 9:07:22 AM Ordering physician: DORCAS CHAMPAGNE computer specialist: Marily Peoples Tester [employer] Leakage: Sahara Oswald Interpreting physician: Fannie Madrid MD Patient name: MR. LUTHER CASTILLO Age: 68 years Gender: M Height: 170.18 cm BSA: 1.81 m Weight: 68.95 kg BMI: 23.8 kg/m Indication: Abnormal resting ECG Stress ECG Conclusion: Conclusion: Normal Stress ECG Summary: The patient's resting heart rate was 85 bpm and blood pressure was 128/73 mmHg. The patient exercised according to the Willem protocol. The estimated end-exercise MET level achieved using the FRIEND equation * * * was 7.6, which is within the 50th to 75th percentile for age and sex. The estimated end-exercise MET level achieved using the previous ACSM equation was 9.1. The test was terminated due to shortness of breath and the total exercise time was 8 minutes and 0 seconds. Other symptoms during the test included SOB. The maximum heart rate was 166 bpm, which is 111% of the predicted heart rate for age. This is an adequate heart rate response. Peak blood pressure was 160/82 mmHg. The double product achieved was [address]. Medications: Last Used LIPITOR PREDNISONE FLOMAX CALCIUM CARBONATE Resting ECG: Normal Sinus Rhythm Symptoms at rest: No symptoms Exercise Protocol: Willem Stress Exercise Table: +-----+ +------- -+ +---+---+---+- ---+----+ Stage Speed (MPH) Grade(%) Time (min) HR SYS GERRY RPE METS +-----+ +------- -+ +---+---+---+- ---+----+ 1 1.7 10.0 3.0 122 138 78 12.0 4.2 +-----+ +------- -+ +---+---+---+- ---+----+ 2 2.5 12.0 6.0 144 148 72 13.0 (more content not included)... [facility] Provider, Sabas Cunhahermann pierre Osborne - 11/12/2023 * * *Final Report* * * DATE OF EXAM: Nov 12 2023 10:39AM DOMENIC 0004 - NM CARDIAC PERF STRESS/EXERCISE / PROCEDURE REASON: multiple diagnoses * * * * Physician Interpretation * * * * Stress Unit Aid Report: [facility] Date of service: 11/12/2023 9:07:22 AM Supervising physician: Fannie Madrid MD PATIENT: Name: MR. LUTHER CASTILLO Age: 68 years Gender: M The supervising physician was in the department and immediately available. * * * Final * * * PATIENT: Name: MR. LUTHER CASTILLO Age: 68 years Gender: M CONCLUSIONS: 1. SPECT Perfusion Study: Normal. 2. There is no scintigraphic evidence for inducible ischemia. 3. No evidence of scarred myocardium. 4. Left ventricle is normal in size. The left ventricle systolic function is normal. 5. This is a low risk scan. Gated Stress IR:3D LVEF % 74 Prior Study Comparison No prior nuclear cardiology exam available for comparison. Nuclear Med Report:1-Day Gated SPECT Myocardial Perfusion with Exercise Stress: Myocardial perfusion imaging was performed at rest 30 to 60 minutes following the IV injection of the radiotracer. One minute prior to peak exercise, the patient was injected IV with the radiotracer. Gated post stress tomographic imaging was performed 10 to 20 minutes later. See administered radiotracer and doses below. [facility] Date of service: 11/12/2023 9:07:22 AM Ordering Physician: DORCAS CHAMPAGNE. Requesting Physician: Indication: Abnormal Baseline ECG Interpreting physician: Amee Heath MD Height: 170.18 cm BSA: 1.81 m Weight: 68.95 kg BMI: 23.8 kg/m Exam Type: Rest Stress Radiopharm: Tc-99m Tetrofosmin Tc-99m Tetrofosmin Dosage(mCi): 13 35 Atten Correction: not performed not performed Stress Agent: Treadmill Resting Blood Press: 128/73 mmHg Image Quality The overall study imaging quality was deemed to be good. FINDINGS: Stress IR:3D Gated Stress IR:3D LVEF: 74 % ED Volume: 76 ml ES Volume: 20 ml TID: 0.88 Perfusion Findings Stress IR:3D - Summed Score=0 All segments demonstrate normal perfusion. Rest IR:3D - Summed Score=0 All segments demonstrate normal perfusion. Stress IR:3D Rest IR:3D Summed Score=0 Summed Score=0 LEFT VENTRICLE The left ventricle is normal in size. Left ventricular systolic function is normal. Stress Test Findings: There is no scintigraphic evidence for inducible ischemia. There is no evidence of scarring. * * * Final * * * Stress ECG Report: [facility] Date of service: 11/12/2023 9:07:22 AM Ordering physician: DORCAS CHAMPAGNE computer specialist: Marily Peoples Tester [employer] Leakage: Sahara Oswald Interpreting physician: Fannie Madrid MD Patient name: MR. LUTHER CASTILLO Age: 68 years Gender: M Height: 170.18 cm BSA: 1.81 m Weight: 68.95 kg BMI: 23.8 kg/m Indication: Abnormal resting ECG Stress ECG Conclusion: Conclusion: Normal Stress ECG Summary: The patient's resting heart rate was 85 bpm and blood pressure was 128/73 mmHg. The patient exercised according to the Willem protocol. The estimated end-exercise MET level achieved using the FRIEND equation * * * was 7.6, which is within the 50th to 75th percentile for age and sex. The estimated end-exercise MET level achieved using the previous ACSM equation was 9.1. The test was terminated due to shortness of breath and the total exercise time was 8 minutes and 0 seconds. Other symptoms during the test included SOB. The maximum heart rate was 166 bpm, which is 111% of the predicted heart rate for age. This is an adequate heart rate response. Peak blood pressure was 160/82 mmHg. The double product [place] was [address]. Medications: Last Used LIPITOR PREDNISONE FLOMAX CALCIUM CARBONATE Resting ECG: Normal Sinus Rhythm Symptoms at rest: No symptoms Exercise Protocol: Willem Stress Exercise Table: +-----+ +------- -+ +---+---+---+- ---+----+ Stage Speed (MPH) Grade(%) Time (min) HR SYS GERRY RPE METS +-----+ +------- -+ +---+---+---+- ---+----+ 1 1.7 10.0 3.0 122 138 78 12.0 4.2 +-----+ +------- -+ +---+---+---+- ---+----+ 2 2.5 12.0 6.0 144 148 72 13.0 6.1 +-----+ +------- -+ +---+---+---+- ---+----+ +-----+ +------- --+ +---+---+---+ ----+----+ Speed (MPH) Grade (%) Time (min) HR SYS GERRY RPE METS +-----+-- (more content not included)... [facility] Radiology Study observation (narrative) [facility] NM Heart Perfusion W multipl e states of exerciseOrdered By: [facility] Provider on 11-12-2023 [facility] JOINon 11-11-2023 CNPN Telephone ([facility]) -- LUTHER CASTILLO ([id number]) 1955 M Date Time Provider Department 11/11/23 SAHARA OSWALD [facility] During your visit today, we recorded the following information about you: Sahara Oswald RN 11/11/2023 11:52 AM Signed Left message regarding reminder and instructions for stress test tomorrow. This included where to check in, length of test and no caffeine for 12 hours prior to test, Allergies As of Date: 11/11/2023 Noted Allergy Reaction RAGWEED POLLEN 06/11/2023 14 - Other: See Comments Comments: Watering/itchy eyes Date Reviewed: 10/22/2023 Reviewed by: Sienna Anglin Ma, MA - Fully Assessed Reason for Visit: Reminder Call [[phone]] Prescriptions as of 11/11/2023 - predniSONE (DELTASONE) 5 mg tablet take 1 tablet by mouth twice daily - darbepoetin dagmar in albumn john (ARANESP INJECTION) by INJECTION(UNSPECIFIED PARENTERAL ROUTES) route every 4 weeks. PRN - abiraterone 250 mg tablet TAKE 4 TABLETS (1,000MG) BY MOUTH ONCE DAILY ON AN EMPTY STOMACH 1 HOUR BEFORE OR 2 HOURS AFTER A MEAL - atorvastatin (LIPITOR) 20 mg tablet Take 1 tablet by mouth daily at bedtime. For cholesterol. - tamsulosin (FLOMAX) 0.4 mg TAKE 1 CAPSULE BY MOUTH EVERY DAY - cimetidine (TAGAMET) 200 mg tablet Take 200 mg by mouth twice daily. - calcium carbonate/vitamin D3 (CALCIUM + D ORAL) Take 1 tablet by mouth twice daily. - leuprolide acetate (ELIGARD SUBCUTANEOUS) Inject subcutaneously once every 6 months. - denosumab (XGEVA SUBCUTANEOUS) Inject subcutaneously once every month. - iv contrast (will be provided with radiology test) MRI Prostate Inject, intravenously, once for 1 dose. No IV access, insert saline lock prior to the beginning of sedation, infusion, injection of imaging exam. Discontinue saline lock post exam. If Pt. has a central line or IVAD, may access for administration according to line specific nursing protocol. Once exam is complete flush line and de-access according to line specific nursing protocol in the MR contrast administration guidelines link. Problem List As Of Date 11/11/2023 Noted Resolved ALLERGIC RHINITIS NOS [J30.9] ACTINIC KERATOSES (Premalignant AK's) [L57.0] 11/29/2005 BPH loc w urin obs/LUTS [N40.1] 04/24/2006 01/03/2017 Microcytic anemia [D50.9] 03/10/2008 ACUTE GASTRITIS W/O HEMORRHAGE [K29.00] 03/10/2008 Family history of colon cancer [Z80.0] 10/29/2011 10/09/2016 Benign neoplasm of rectum and anal canal [D12.8*03/06/2012 Internal hemorrhoids without mention of complic*03/06/2012 Family history of malignant neoplasm of gastroi*03/06/2012 10/09/2016 Actinic skin damage [L57.8] 09/30/2012 Solar Lentigines [L81.4] 09/30/2012 Hypopigmentation [L81.9] 09/30/2012 07/18/2016 Scars [L90.5] 09/30/2012 10/09/2016 Chronic actinic dermatitis [L57.8] 11/27/2012 07/18/2016 Other seborrheic dermatitis [L21.8] 11/27/2012 Postinflammatory skin changes [R23.8] 11/27/2012 07/18/2016 L-S radiculopathy [M54.17] 04/20/2013 07/13/2013 DDD (degenerative disc disease), lumbar [M51.36]04/20/2013 07/13/2013 Spinal stenosis of lumbar region [M48.061] 04/20/2013 Xerosis cutis [L85.3] 06/24/2013 07/18/2016 Lumbar disc herniation with radiculopathy [M51.*07/13/2013 Lumbosacral neuritis [M54.17] 07/13/2013 Lumbar degenerative disc disease [M51.36] 07/13/2013 Lumbar spondylosis [M47.816] 07/13/2013 04/27/2015 Osteoarthritis of spine with radiculopathy, lum*04/27/2015 Biceps tendonitis on right [M75.21] 05/30/2016 Impingement syndrome of right shoulder [M75.41] 08/15/2016 Biceps tendinitis of right shoulder [M75.21] 10/09/2016 Chronic pain in right shoulder [M25.511, G89.29]10/09/2016 Vasovagal reaction [R55] 10/09/2016 Gastroesophageal reflux disease with esophagiti*10/09/2016 Shoulder impingement syndrome, right [M75.41] 01/02/2017 Elevated prostate specific antigen (PSA) [R97.2*01/03/2017 Hypertrophy of prostate with urinary obstructio*01/03/2017 Family history of malignant neoplasm of prostat*02/13/2017 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*12/07/2020 Malignant neoplasm metastatic to bone (HCC) [C7*05/29/2021 Prostate cancer (HCC) [C61] 11/13/2021 Mixed hyperlipidemia [E78.2] 10/16/2023 Encounter Status:Closed by SAHARA OSWALD on 11/11/23 [facility] Basic metabolic 2000 panelon 10-22-2023 Anion gap [Moles/Vol] 7 mmol/L Low 8-15 [facility] Comment on above: Order Comment: Speci men Type: BLOOD SPECIMENOrdering Facility: [facility] Address: [address] [place] [address] Performed By: #### 2 4321-2 ####[facility] NIKOLE HOANGCINDY [id number] [place] [id number] [place] Calcium [Mass/Vol] 8.8 mg/dL Normal 8.5-10.2 [facility] Comment on above: Order Comment: Speci men Type: BLOOD SPECIMENOrdering Facility: [facility] Address: [address] [place] [address] Performed By: #### 2 4321-2 ####[facility] BIENVENIDOMariannaNCKATERINA [id number] [place] [address] [place] Chloride [Moles/Vol] 105 mmol/L Normal 98-107 [facility] Comment on above: Order Comment: Speci men Type: BLOOD SPECIMENOrdering Facility: [facility] Address: [address] [place] [address] Performed By: #### 2 4321-2 ####[facility] HOSPITALNCA [id number] [place] [address] [place] CO2 [Moles/Vol] 26 mmol/L Normal 22-30 [facility] Comment on above: Order Comment: Speci men Type: BLOOD SPECIMENOrdering Facility: [facility] Address: [address] [place] [address] Performed By: #### 2 4321-2 ####[facility] HOSPITALNCLIA [id number] [place] [address] [place] Creatinine [Mass/Vol] 0.97 mg/dL Normal 0.73-1.22 [facility] Comment on above: Order Comment: Speci men Type: BLOOD SPECIMENOrdering Facility: [facility] Address: [address] [place] [address] Performed By: #### 2 4321-2 ####[facility] HOSPITALNCLIA [id number] [place] [address] [place] Creatinine and Glomerular filtration rate.predicted panel (S/P/Bld) 84 mL/min/1.73m??? Normal >=60 [facility] Comment on above: Order Comment: Speci men Type: BLOOD SPECIMENOrdering Facility: [facility] Address: [address], [place] [address] Result Comment: Beth mated Glomerular Filtration Rate (eGFR) is calculated using the 2020 CKD-EPI creatinine equation. This equation utilizes serum creatinine, sex, and age as parameters. The creatinine assay has traceable calibration to isotope dilution-mass spectrometry. Refer to KDIGO guidelines for clinical interpretation. In patients with unstable renal function, e.g. those with acute kidney injury, the eGFR may not accurately reflect actual GFR. Performed By: #### 2 4321-2 ####[facility] HOSPITALANGELICAKANE [facility] [id number] [place] [address] [place] Glucose [Mass/Vol] 94 mg/dL Normal 74-99 [facility] Comment on above: Order Comment: Bassam hong Type: BLOOD SPECIMENOrdering Facility: [facility] Address: [address] [place] [address] Result Comment: The [place] Diabetes Association (ADA) provides guidance for cutoff values for fasting glucose and random glucose. The ADA defines fasting as no caloric intake for at least 8 hours. Fasting plasma glucose results between 100 to 125 mg/dL indicate increased risk for diabetes (prediabetes).Fasting plasma glucose results greater than or equal to 126 mg/dL meet the criteria for diagnosis of diabetes. In the absence of unequivocal hyperglycemia, results should be confirmed by repeat testing. In a patient with classic symptoms of hyperglycemia or hyperglycemic crisis, random plasma glucose results greater than or equal to 200 mg/dL meet the criteria for diagnosis of diabetes.Reference: Standards of Medical Care in Diabetes 2016, [place] [employer] Association. Diabetes Care. 2016.39(Suppl 1). Performed By: #### 2 4321-2 ####[facility] HOSPITALA [id number] [place] [address] [place] Potassium [Moles/Vol] 3.7 mmol/L Normal 3.7-5.1 [facility] Comment on above: Order Comment: Bassam hong Type: BLOOD SPECIMENOrdering Facility: [facility] Address: [address] [place] [address] Performed By: #### 2 4321-2 ####[facility] [id number] [place] [address] [place] Sodium [Moles/Vol] 138 mmol/L Normal 136-144 [facility] Comment on above: Order Comment: Speci men Type: BLOOD SPECIMENOrdering Facility: [facility] Address: [address] [place] [address] Performed By: #### 2 4321-2 ####[facility]CIE HOSPITALNCKATERINA [id number] [place] [address] [place] Urea nitrogen [Mass/Vol] 27 mg/dL High 9-24 [facility] Comment on above: Order Comment: Speci men Type: BLOOD SPECIMENOrdering Facility: [facility] Address: [address] [place] [address] Performed By: #### 2 4321-2 ####[facility] HOSPITALWNCLIA [id number] [place] [address] [place] CBC W Auto Differential pane l (Bld)on 10-22-2023 Basophils (Bld) [#/Vol] 10*3/uL Normal <0.11 [facility] Comment on above: Order Comment: Speci men Type: BLOOD SPECIMENOrdering Facility: [facility] Address: [address] [place] [address] Performed By: #### 5 7021-8 ####[facility] HOSPITALNCLIA [id number] [place] [address] [place] Basophils/100 WBC (Bld) 0.2 % Normal [facility] Comment on above: Order Comment: Speci men Type: BLOOD SPECIMENOrdering Facility: [facility] Address: [address] [place] [address] Performed By: #### 5 7021-8 ####[facility] HOSPITALNCLIA [id number] [place] [address] [place] Differential cell count method Nom (Bld) Auto Normal [facility] Comment on above: Order Comment: Speci men Type: BLOOD SPECIMENOrdering Facility: [facility] Address: [address] [place] [address] Performed By: #### 5 7021-8 ####[facility] HOSPITALANGELICAKANE [facility] [id number] [place] [address] [place] Eosinophils (Bld) [#/Vol] 0.21 10*3/uL Normal <0.46 [facility] Comment on above: Order Comment: Speci men Type: BLOOD SPECIMENOrdering Facility: [facility] Address: [address] [place] [address] Performed By: #### 5 7021-8 ####[facility] [id number] [place] [address] [place] Eosinophils/100 WBC (Bld) 4.3 % Normal [facility] Comment on above: Order Comment: Speci men Type: BLOOD SPECIMENOrdering Facility: [facility] Address: [address] [place] [address] Performed By: #### 5 7021-8 ####[facility] [id number] [place] [address] [place] Erythrocyte distribution width (RBC) [Ratio] 20.2 % High 11.5-15.0 [facility] Comment on above: Order Comment: Speci men Type: BLOOD SPECIMENOrdering Facility: [facility] Address: [address] [place] [address] Performed By: #### 5 7021-8 ####[facility] [id number] [place] [address] [place] Hematocrit (Bld) [Volume fraction] 29.5 % Low 39.0-51.0 [facility] Comment on above: Order Comment: Speci men Type: BLOOD SPECIMENOrdering Facility: [facility] Address: [address] [place] [address] Performed By: #### 5 7021-8 ####[facility] HOSPITALWNCLIA [id number] [place] [address] [place] Hemoglobin (Bld) [Mass/Vol] 9.1 g/dL Low 13.0-17.0 [facility] Comment on above: Order Comment: Speci men Type: BLOOD SPECIMENOrdering Facility: [facility] Address: [address] [place] [address] Performed By: #### 5 7021-8 ####[facility] HOSPITALLIA [id number] [place] [address] [place] Immature granulocytes (Bld) [#/Vol] 10*3/uL Normal <0.10 [facility] Comment on above: Order Comment: Speci men Type: BLOOD SPECIMENOrdering Facility: [facility] Address: [address] [place] [address] Performed By: #### 5 7021-8 ####[facility] HOSPITALLIA [id number] [place] [address] [place] Immature granulocytes/100 WBC (Bld) 0.4 % Normal [facility] Comment on above: Order Comment: Speci men Type: BLOOD SPECIMENOrdering Facility: [facility] Address: [address] [place] [address] Performed By: #### 5 7021-8 ####[facility] HOSPITALLIA [id number] [place] [address] [place] Lymphocytes (Bld) [#/Vol] 2.01 10*3/uL Normal 1.00-4.00 [facility] Comment on above: Order Comment: Speci men Type: BLOOD SPECIMENOrdering Facility: [facility] Address: [address] [place] [address] Performed By: #### 5 7021-8 ####[facility] HOSPITALNCLIA [id number] [place] [address] [place] Lymphocytes/100 WBC (Bld) 40.9 % Normal [facility] Comment on above: Order Comment: Speci men Type: BLOOD SPECIMENOrdering Facility: [facility] Address: [address] [place] [address] Performed By: #### 5 7021-8 ####[facility] [id number] [place] [address] [place] MCH (RBC) [Entitic mass] 24.7 pg Low 26.0-34.0 [facility] Comment on above: Order Comment: Speci men Type: BLOOD SPECIMENOrdering Facility: [facility] Address: [address] [place] [address] Performed By: #### 5 7021-8 ####[facility] [id number] [place] [address] [place] MCHC (RBC) [Mass/Vol] 30.8 g/dL Normal 30.5-36.0 [facility] Comment on above: Order Comment: Speci men Type: BLOOD SPECIMENOrdering Facility: [facility] Address: [address] [place] [address] Performed By: #### 5 7021-8 ####[facility] [id number] [place] [address] [place] MCV (RBC) [Entitic vol] 79.9 fL Low 80.0-100.0 [facility] Comment on above: Order Comment: Speci men Type: BLOOD SPECIMENOrdering Facility: [facility] Address: [address] [place], [place] [address] Performed By: #### 5 7021-8 ####[facility] [id number] [place] [address] [place] Monocytes (Bld) [#/Vol] 0.35 10*3/uL Normal <0.87 [facility] Comment on above: Order Comment: Speci men Type: BLOOD SPECIMENOrdering Facility: [facility] Address: [address] [place] [address] Performed By: #### 5 7021-8 ####[facility] BIENVENIDOWANGELICALIA [id number] [place] [address] [place] Monocytes/100 WBC (Bld) 7.1 % Normal [facility] Comment on above: Order Comment: Speci men Type: BLOOD SPECIMENOrdering Facility: [facility] Address: [address] [place] [address] Performed By: #### 5 7021-8 ####[facility]PITALNCLIA [id number] [place] [address] [place] Neutrophils (Bld) [#/Vol] 2.31 10*3/uL Normal 1.45-7.50 [facility] Comment on above: Order Comment: Speci men Type: BLOOD SPECIMENOrdering Facility: [facility] Address: [address] [place] [address] Performed By: #### 5 7021-8 ####[facility] HOSPITALLIA [id number] [place] [address] [place] Neutrophils/100 WBC (Bld) 47.1 % Normal [facility] Comment on above: Order Comment: Speci men Type: BLOOD SPECIMENOrdering Facility: [facility] Address: [address] [place] [address] Performed By: #### 5 7021-8 ####[facility] BIENVENIDOGRASS VALLEYNCLIA [id number] [place] [address] [place] Nucleated RBC (Bld) [#/Vol] 10*3/uL Normal <0.01 [facility] Comment on above: Order Comment: Speci men Type: BLOOD SPECIMENOrdering Facility: [facility] Address: [address] [place] [address] Performed By: #### 5 7021-8 ####[facility] HOS[facility]ITALWNCLIA [id number] [place] [address] [place] Nucleated RBC/100 WBC (Bld) [Ratio] 0.0 /100 WBC Normal [facility] Comment on above: Order Comment: Speci men Type: BLOOD SPECIMENOrdering Facility: [facility] Address: [address] [place] [address] Performed By: #### 5 7021-8 ####[facility] BIENVENIDOESTHER [id number] [place] [address] [place] Platelet mean volume (Bld) [Entitic vol] 8.6 fL Low 9.0-12.7 [facility] Comment on above: Order Comment: Speci men Type: BLOOD SPECIMENOrdering Facility: [facility] Address: [address] [place] [address] Performed By: #### 5 7021-8 ####[facility] HOSPITALANGELICAA [id number] [place] [address] [place] Platelets (Bld) [#/Vol] 178 10*3/uL Normal 150-400 [facility] Comment on above: Order Comment: Speci men Type: BLOOD SPECIMENOrdering Facility: [facility] Address: [address] [place] [address] Performed By: #### 5 7021-8 ####[facility] BIENVENIDOGRASS VALLEYANGELICALIA [id number] [place] [address] [place] RBC (Bld) [#/Vol] 3.69 10*6/uL Low 4.20-6.00 [facility] Comment on above: Order Comment: Speci men Type: BLOOD SPECIMENOrdering Facility: [facility] Address: [address] [place] [address] Performed By: #### 5 7021-8 ####[facility]ITALNCLIA [id number] [place] [address] [place] WBC (Bld) [#/Vol] 4.91 10*3/uL Normal 3.70-11.00 [facility] Comment on above: Order Comment: Speci men Type: BLOOD SPECIMENOrdering Facility: [facility] Address: [address] [place] [address] Performed By: #### 5 7021-8 ####[facility] NIKOLE [facility] SYSTEMA [id number] [place] [address] [place] CNOVSPon 10-22-2023 CNOVSP Normal [facility] PSA SerPl-mCncon 10-22-2023 Prostate specific Ag [Mass/Vol] ng/mL Normal <2.60 [facility] Comment on above: Order Comment: Speci men Type: BLOOD SPECIMENOrdering Facility: [facility] Address: [address] [place] [address] Result Comment: Tota l PSA test methodology used is the Electrochemiluminescence Immunoassay by [employer]. Total PSA values by differing methodologies cannot be interchanged. Performed By: #### 2 857-1 ####[facility] LABCLIA [id number] [address] OF [place] CNOVon 10-16-2023 CNOV Office Visit (JEFF ) -- LUTHER CASTILLO ([id number]) 1955 M Date Time Provider Department 10/16/23 2:20 PM DORCAS CHAMPAGNE During your visit today, we recorded the following information about you: Pulse Blood pressure Weight Height 98/minute 118/64 70 kg 1.702 m Dorcas Champagne DO 10/16/2023 5:25 PM [facility]ly [facility] SECTION OF [facility]IOLOGY [facility] OUTPATIENT VISIT DATE October 16, 2023 PRIMARY CARE PHYSICIAN: Arsalan Ocampo [address] [place] [address] HISTORY OF PRESENT ILLNESS: Mr. Castillo is a 68 year old male. Patient presents for evaluation treatment options of chest discomfort and dyspnea occurring with exertion abating with rest. Patient has a baseline abnormal EKG with anterior T wave abnormality concerning for ischemia as well. The patient's chest discomfort is sharp without radiation. It is not reproducible to palpation. Is been going on for the last several months. He is in the treatment strategy for stage IV metastatic prostate cancer. He denies orthopnea, paroxysmal nocturnal dyspnea, palpitations, near-syncope or syncope. Patient had a regular treadmill stress test which was normal with the exception of heart rate response which would be considered consistent with deconditioning. The patient is retired and lives at home with his who accompanies today. He has grown children and grandchildren. He is a non-smoker having quit remotely, social drinker. Cardiac risk factors: Age, gender, previous tobacco abuse, hyperlipidemia Impression: 1. Shortness of breath 2. Chest discomfort 3. Abnormal EKG 4. Hyperlipidemia 5. Stage IV metastatic prostate cancer PLAN AND RECOMMENDATIONS: The patient's symptoms are concerning for an anginal equivalent. He does have an abnormal EKG as well but a normal treadmill stress test showing simply deconditioning and no apparent provocation of symptoms. We would therefore recommend further evaluation with nuclear stress imaging. In the absence of findings, would recommend other noncardiac causes of his symptoms which may be simple deconditioning versus pulmonary versus other. If that workup would prove unfruitful, then he may need further evaluation for invasive cardiac testing. Dietary and lifestyle modification were discussed at length to facilitate risk factor reduction. We will look forward to reevaluate him in 6 months time regardless. Vitals: BP 118/64 Pulse 98 Ht 170.2 cm (5' 7) Wt 70 kg (154 lb 5.2 oz) SpO2 97% BMI 24.17 kg/m? Physical Exam Vitals reviewed. Constitutional: General: He is not in acute distress. Appearance: Normal appearance. He is well-developed. He is not diaphoretic. HENT: Head: Normocephalic and atraumatic. Right Ear: External ear normal. Left Ear: External ear normal. Nose: Nose normal. Eyes: General: No scleral icterus. Right eye: No discharge. Left eye: No discharge. Pupils: Pupils are equal, round, and reactive to light. Neck: Thyroid: No thyromegaly. Vascular: No carotid bruit or JVD. Cardiovascular: Rate and Rhythm: Normal rate and regular rhythm. Heart sounds: Murmur heard. Systolic murmur is present with a grade of 1/6. No friction rub. No gallop. Pulmonary: Effort: Pulmonary effort is normal. No respiratory distress. Breath sounds: Normal breath sounds. No wheezing or rales. Abdominal: General: Bowel sounds are normal. Palpations: Abdomen is soft. Musculoskeletal: General: Normal range of motion. Cervical back: Neck supple. Skin: General: Skin is warm and dry. Capillary Refill: Capillary refill takes less than 2 seconds. Coloration: Skin is not pale. Neurological: Mental Status: He is alert and oriented to person, place, and time. Cranial Nerves: No cranial nerve deficit. Psychiatric: Mood and Affect: Mood normal. Mood is not anxious or depressed. Behavior: Behavior normal. Thought Content: Thought content normal. Judgment: Judgment normal. Review of Systems Constitutional: Negative for activity change, appetite change, fatigue and unexpected weight change. HENT: Negative for ear pain and trouble swallowing. Eyes: Negative for pain and visual disturbance. Respiratory: Positive for shortness of breath. Negative for chest tightness. Cardiovascular: Positive for chest pain. Negative for palpitations and leg swelling. Gastrointestinal: Negative for abdominal pain and blood in stool. Endocrine: Negative for cold intolerance and heat intolerance. Genitourinary: Negative for dysuria, hematuria and scrotal swelling. Musculoskeletal: Negative for arthralgias and myalgias. Skin: Negative for pallor and rash. Allergic/Immunologic: Negative for immunocompromised state. Neurological: Negative for dizziness, syncope and light-heade (more content not included)... [facility] 10-16-2023 [facility] Telephone ([email or web address]) -- LUTHER CASTILLO ([id number]) 1955 M Date Time Provider Department 10/16/23 DORCAS CHAMPAGNE During your visit today, we recorded the following information about you: Gabi Douglas MA 10/16/2023 3:45 PM Signed Please call pt to schedule Stress echo ordered today by Dr Champagne. Follow up appointment already scheduled. Rafaela Harman 10/20/2023 12:01 PM Signed First Attempt- Called pt and left vm to call back to schedule Tahira Gu 10/22/2023 7:52 AM Signed Patient is scheduled Allergies As of Date: 10/16/2023 Noted Allergy Reaction RAGWEED POLLEN 06/11/2023 14 - Other: See Comments Comments: Watering/itchy eyes Date Reviewed: 10/16/2023 Reviewed by: Gabi Douglas MA - Fully Assessed Reason for Visit: Appointment [[id number]] Prescriptions as of 10/22/2023 - darbepoetin dagmar in albumn john (ARANESP INJECTION) by INJECTION(UNSPECIFIED PARENTERAL ROUTES) route every 4 weeks. PRN - abiraterone 250 mg tablet TAKE 4 TABLETS (1,000MG) BY MOUTH ONCE DAILY ON AN EMPTY STOMACH 1 HOUR BEFORE OR 2 HOURS AFTER A MEAL - atorvastatin (LIPITOR) 20 mg tablet Take 1 tablet by mouth daily at bedtime. For cholesterol. - predniSONE (DELTASONE) 5 mg tablet take 1 tablet by mouth twice daily - tamsulosin (FLOMAX) 0.4 mg TAKE 1 CAPSULE BY MOUTH EVERY DAY - cimetidine (TAGAMET) 200 mg tablet Take 200 mg by mouth twice daily. - calcium carbonate/vitamin D3 (CALCIUM + D ORAL) Take 1 tablet by mouth twice daily. - leuprolide acetate (ELIGARD SUBCUTANEOUS) Inject subcutaneously once every 6 months. - denosumab (XGEVA SUBCUTANEOUS) Inject subcutaneously once every month. - iv contrast (will be provided with radiology test) MRI Prostate Inject, intravenously, once for 1 dose. No IV access, insert saline lock prior to the beginning of sedation, infusion, injection of imaging exam. Discontinue saline lock post exam. If Pt. has a central line or IVAD, may access for administration according to line specific nursing protocol. Once exam is complete flush line and de-access according to line specific nursing protocol in the MR contrast administration guidelines link. Problem List As Of Date 10/16/2023 Noted Resolved ALLERGIC RHINITIS NOS [J30.9] ACTINIC KERATOSES (Premalignant AK's) [L57.0] 11/29/2005 BPH loc w urin obs/LUTS [N40.1] 04/24/2006 01/03/2017 Microcytic anemia [D50.9] 03/10/2008 ACUTE GASTRITIS W/O HEMORRHAGE [K29.00] 03/10/2008 Family history of colon cancer [Z80.0] 10/29/2011 10/09/2016 Benign neoplasm of rectum and anal canal [D12.8*03/06/2012 Internal hemorrhoids without mention of complic*03/06/2012 Family history of malignant neoplasm of gastroi*03/06/2012 10/09/2016 Actinic skin damage [L57.8] 09/30/2012 Solar Lentigines [L81.4] 09/30/2012 Hypopigmentation [L81.9] 09/30/2012 07/18/2016 Scars [L90.5] 09/30/2012 10/09/2016 Chronic actinic dermatitis [L57.8] 11/27/2012 07/18/2016 Other seborrheic dermatitis [L21.8] 11/27/2012 Postinflammatory skin changes [R23.8] 11/27/2012 07/18/2016 L-S radiculopathy [M54.17] 04/20/2013 07/13/2013 DDD (degenerative disc disease), lumbar [M51.36]04/20/2013 07/13/2013 Spinal stenosis of lumbar region [M48.061] 04/20/2013 Xerosis cutis [L85.3] 06/24/2013 07/18/2016 Lumbar disc herniation with radiculopathy [M51.*07/13/2013 Lumbosacral neuritis [M54.17] 07/13/2013 Lumbar degenerative disc disease [M51.36] 07/13/2013 Lumbar spondylosis [M47.816] 07/13/2013 04/27/2015 Osteoarthritis of spine with radiculopathy, lum*04/27/2015 Biceps tendonitis on right [M75.21] 05/30/2016 Impingement syndrome of right shoulder [M75.41] 08/15/2016 Biceps tendinitis of right shoulder [M75.21] 10/09/2016 Chronic pain in right shoulder [M25.511, G89.29]10/09/2016 Vasovagal reaction [R55] 10/09/2016 Gastroesophageal reflux disease with esophagiti*10/09/2016 Shoulder impingement syndrome, right [M75.41] 01/02/2017 Elevated prostate specific antigen (PSA) [R97.2*01/03/2017 Hypertrophy of prostate with urinary obstructio*01/03/2017 Family history of malignant neoplasm of prostat*02/13/2017 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 [id number] [place] [address] [place] Calcium [Mass/Vol] 8.8 mg/dL Normal 8.5-10.2 [facility] Comment on above: Order Comment: Speci men Type: BLOOD SPECIMENOrdering Facility: [facility] Address: [address] [place] [address] Performed By: #### 2 4321-2 ####[facility] [id number] [place] [address] [place] Chloride [Moles/Vol] 106 mmol/L Normal 98-107 [facility] Comment on above: Order Comment: Speci men Type: BLOOD SPECIMENOrdering Facility: [facility] Address: [address] [place] [address] Performed By: #### 2 4321-2 ####[facility] HOSPITALNCKATERIN [id number] [place] [address] [place] CO2 [Moles/Vol] 25 mmol/L Normal 22-30 [facility] Comment on above: Order Comment: Speci men Type: BLOOD SPECIMENOrdering Facility: [facility] Address: [address] [place] [address] Performed By: #### 2 4321-2 ####[facility]ITALN[facility] [id number] [address] [place] Creatinine [Mass/Vol] 1.00 mg/dL Normal 0.73-1.22 [facility] Comment on above: Order Comment: Speci men Type: BLOOD SPECIMENOrdering Facility: [facility] Address: [address] [place] [address] Performed By: #### 2 4321-2 ####[facility] [id number] [address] OF [facility] Creatinine and Glomerular filtration rate.predicted panel (S/P/Bld) 81 mL/min/1.73m??? Normal >=60 [facility] Comment on above: Order Comment: Speci men Type: BLOOD SPECIMENOrdering Facility: [facility] Address: [address] [place] [address] Result Comment: Beth mated Glomerular Filtration Rate (eGFR) is calculated using the 2020 CKD-EPI creatinine equation. This equation utilizes serum creatinine, sex, and age as parameters. The creatinine assay has traceable calibration to isotope dilution-mass spectrometry. Refer to KDIGO guidelines for clinical interpretation. In patients with unstable renal function, e.g. those with acute kidney injury, the eGFR may not accurately reflect actual GFR. Performed By: #### 2 4321-2 ####[facility] H[facility]ITALWNCLI [id number] [place] [address] [place] Glucose [Mass/Vol] 99 mg/dL Normal 74-99 [facility] Comment on above: Order Comment: Speci men Type: BLOOD SPECIMENOrdering Facility: [facility] Address: [address] [place], [place] [address] Result Comment: The [place] Diabetes Association (ADA) provides guidance for cutoff values for fasting glucose and random glucose. The ADA defines fasting as no caloric intake for at least 8 hours. Fasting plasma glucose results between 100 to 125 mg/dL indicate increased risk for diabetes (prediabetes).Fasting plasma glucose results greater than or equal to 126 mg/dL meet the criteria for diagnosis of diabetes. In the absence of unequivocal hyperglycemia, results should be confirmed by repeat testing. In a patient with classic symptoms of hyperglycemia or hyperglycemic crisis, random plasma glucose results greater than or equal to 200 mg/dL meet the criteria for diagnosis of diabetes.Reference: Standards of Medical Care in Diabetes 2016, [place] Diabetes Association. Diabetes Care. 2016.39(Suppl 1). Performed By: #### 2 4321-2 ####[facility] H[facility]ITALWNCLIA [id number] [place] [address] [place] Potassium [Moles/Vol] 4.1 mmol/L Normal 3.7-5.1 [facility] Comment on above: Order Comment: Jose Manueli men Type: BLOOD SPECIMENOrdering Facility: [facility] Address: [address] [place], [place] [address] Performed By: #### 2 4321-2 ####[facility]ITALWNCLIA [id number] [place] [address] [place] Sodium [Moles/Vol] 138 mmol/L Normal 136-144 [facility] Comment on above: Order Comment: Jose Manueli men Type: BLOOD SPECIMENOrdering Facility: [facility] Address: [address] [place], [place] [address] Performed By: #### 2 4321-2 ####[facility]PITALNCLIA [id number] [place] [address] [place] Urea nitrogen [Mass/Vol] 27 mg/dL High 9-24 [facility] Comment on above: Order Comment: Speci men Type: BLOOD SPECIMENOrdering Facility: [facility] Address: [address] [place] [address] Performed By: #### 2 4321-2 ####[facility] [id number] [place] [address] [place] CBC W Auto Differential pane l (Bld)on 09-24-2023 Basophils (Bld) [#/Vol] 10*3/uL Normal <0.11 [facility] Comment on above: Order Comment: Speci men Type: BLOOD SPECIMENOrdering Facility: [facility] Address: [address] [place] [address] Performed By: #### 5 7021-8 ####[facility] [id number] [place] [address] [place] Basophils/100 WBC (Bld) 0.4 % Normal [facility] Comment on above: Order Comment: Speci men Type: BLOOD SPECIMENOrdering Facility: [facility] Address: [address] [place] [address] Performed By: #### 5 7021-8 ####[facility] [id number] [place] [address] [place] Differential cell count method Nom (Bld) Auto Normal [facility] Comment on above: Order Comment: Speci men Type: BLOOD SPECIMENOrdering Facility: [facility] Address: [address] [place] [address] Performed By: #### 5 7021-8 ####[facility] [id number] [place] [address] [place] Eosinophils (Bld) [#/Vol] 0.18 10*3/uL Normal <0.46 [facility] Comment on above: Order Comment: Speci men Type: BLOOD SPECIMENOrdering Facility: [facility] Address: [address] [place] [address] Performed By: #### 5 7021-8 ####[facility] ANDREW [id number] [place] [address] [place] Eosinophils/100 WBC (Bld) 3.6 % Normal [facility] Comment on above: Order Comment: Speci men Type: BLOOD SPECIMENOrdering Facility: [facility] Address: [address] [place] [address] Performed By: #### 5 7021-8 ####[facility] BIENVENIDOGRASS VALLEYNCKATERINShireen [id number] [place] [address] [place] Erythrocyte distribution width (RBC) [Ratio] 20.3 % High 11.5-15.0 [facility] Comment on above: Order Comment: Speci men Type: BLOOD SPECIMENOrdering Facility: [facility] Address: [address] [place] [address] Performed By: #### 5 7021-8 ####[facility] BIENVENIDOGRASS VALLEYANGELICAMJ [id number] [place] [address] [place] Hematocrit (Bld) [Volume fraction] 31.2 % Low 39.0-51.0 [facility] Comment on above: Order Comment: Speci men Type: BLOOD SPECIMENOrdering Facility: [facility] Address: [address] [place] [address] Performed By: #### 5 7021-8 ####[facility] BIENVENIDOGRASS VALLEYNCLIA [id number] [place] [address] [place] Hemoglobin (Bld) [Mass/Vol] 9.6 g/dL Low 13.0-17.0 [facility] Comment on above: Order Comment: Speci men Type: BLOOD SPECIMENOrdering Facility: [facility] Address: [address] [place] [address] Performed By: #### 5 7021-8 ####[facility] MILLWNCLIA [id number] [place] [address] [place] Immature granulocytes (Bld) [#/Vol] 10*3/uL Normal <0.10 [facility] Comment on above: Order Comment: Speci men Type: BLOOD SPECIMENOrdering Facility: [facility] Address: [address] [place] [address] Performed By: #### 5 7021-8 ####[facility] HOSPITALLIA [id number] [place] [address] [place] Immature granulocytes/100 WBC (Bld) 0.4 % Normal [facility] Comment on above: Order Comment: Speci men Type: BLOOD SPECIMENOrdering Facility: [facility] Address: [address] [place] [address] Performed By: #### 5 7021-8 ####[facility] [id number] [place] [address] [place] Lymphocytes (Bld) [#/Vol] 2.08 10*3/uL Normal 1.00-4.00 [facility] Comment on above: Order Comment: Speci men Type: BLOOD SPECIMENOrdering Facility: [facility] Address: [address] [place] [address] Performed By: #### 5 7021-8 ####[facility] [id number] [place] [address] [place] Lymphocytes/100 WBC (Bld) 41.3 % Normal [facility] Comment on above: Order Comment: Speci men Type: BLOOD SPECIMENOrdering Facility: [facility] Address: [address] [place] [address] Performed By: #### 5 7021-8 ####[facility] [id number] [place] [address] [place] MCH (RBC) [Entitic mass] 24.7 pg Low 26.0-34.0 [facility] Comment on above: Order Comment: Speci men Type: BLOOD SPECIMENOrdering Facility: [facility] Address: [address] [place] [address] Performed By: #### 5 7021-8 ####[facility] [id number] [place] [address] [place] MCHC (RBC) [Mass/Vol] 30.8 g/dL Normal 30.5-36.0 [facility] Comment on above: Order Comment: Speci men Type: BLOOD SPECIMENOrdering Facility: [facility] Address: [address] [place] [address] Performed By: #### 5 7021-8 ####[facility] [id number] [place] [address] [place] MCV (RBC) [Entitic vol] 80.4 fL Normal 80.0-100.0 [facility] Comment on above: Order Comment: Speci men Type: BLOOD SPECIMENOrdering Facility: [facility] Address: [address] [place] [address] Performed By: #### 5 7021-8 ####[facility] [id number] [place] [address] [place] Monocytes (Bld) [#/Vol] 0.36 10*3/uL Normal <0.87 [facility] Comment on above: Order Comment: Speci men Type: BLOOD SPECIMENOrdering Facility: [facility] Address: [address] [place] [address] Performed By: #### 5 7021-8 ####[facility] [id number] [place] [address] [place] Monocytes/100 WBC (Bld) 7.1 % Normal [facility] Comment on above: Order Comment: Speci men Type: BLOOD SPECIMENOrdering Facility: [facility] Address: [address] [place] [address] Performed By: #### 5 7021-8 ####[facility] HOSPITALLIA [id number] [place] [address] [place] Neutrophils (Bld) [#/Vol] 2.38 10*3/uL Normal 1.45-7.50 [facility] Comment on above: Order Comment: Speci men Type: BLOOD SPECIMENOrdering Facility: [facility] Address: [address] [place] [address] Performed By: #### 5 7021-8 ####[facility] HOSPITALLIA [id number] [place] [address] [place] Neutrophils/100 WBC (Bld) 47.2 % Normal [facility] Comment on above: Order Comment: Speci men Type: BLOOD SPECIMENOrdering Facility: [facility] Address: [address] [place] [address] Performed By: #### 5 7021-8 ####[facility] [id number] [place] [address] [place] Nucleated RBC (Bld) [#/Vol] 10*3/uL Normal <0.01 [facility] Comment on above: Order Comment: Speci men Type: BLOOD SPECIMENOrdering Facility: [facility] Address: [address] [place] [address] Performed By: #### 5 7021-8 ####[facility]OSPITALLIA [id number] [place] [address] [place] Nucleated RBC/100 WBC (Bld) [Ratio] 0.0 /100 WBC Normal [facility] Comment on above: Order Comment: Speci men Type: BLOOD SPECIMENOrdering Facility: [facility] Address: [address] [place] [address] Performed By: #### 5 7021-8 ####[facility] HOSPITALNCLIA [id number] [place] [address] [place] Platelet mean volume (Bld) [Entitic vol] 8.1 fL Low 9.0-12.7 [facility] Comment on above: Order Comment: Speci men Type: BLOOD SPECIMENOrdering Facility: [facility] Address: [address] [place] [address] Performed By: #### 5 7021-8 ####[facility] BIENVENIDOESTHER [id number] [place] [address] [place] Platelets (Bld) [#/Vol] 185 10*3/uL Normal 150-400 [facility] Comment on above: Order Comment: Speci men Type: BLOOD SPECIMENOrdering Facility: [facility] Address: [address] [place] [address] Performed By: #### 5 7021-8 ####[facility] HOSPITALANGELICAMJ [id number] [place] [address] [place] RBC (Bld) [#/Vol] 3.88 10*6/uL Low 4.20-6.00 [facility] Comment on above: Order Comment: Speci men Type: BLOOD SPECIMENOrdering Facility: [facility] Address: [address] [place] [address] Performed By: #### 5 7021-8 ####[facility] BIENVENIDOGRASS VALLEYANGELICAKATERINA [id number] [place] [address] [place] WBC (Bld) [#/Vol] 5.04 10*3/uL Normal 3.70-11.00 [facility] Comment on above: Order Comment: Speci men Type: BLOOD SPECIMENOrdering Facility: [facility] Address: [address] [place] [address] Performed By: #### 5 7021-8 ####[facility] HOSPITALNCLIShireen [id number] [place] [id number] [place] EXERCISE STRESS ECG (WITHOUT IMAGING)on 06-17-2023 EXERCISE STRESS ECG (WITHOUT IMAGING) Stress Unit Aid Report: Exercise Stress ECG (without Imaging) [facility] Date of service: 06/17/2023 10:22:25 AM Supervising physician: Lucian Alvarez MD PATIENT: Name: MR. LUTHER CASTILLO Age: 68 years Gender: M The supervising physician was in the department and immediately available. Final Stress ECG Report: Exercise Stress ECG (without Imaging) [facility] Date of service: 06/17/2023 10:22:25 AM Ordering physician: CATHERINE PERAZA computer specialist: Julieta Zhang [employer] Leakage: Toma Lyles Interpreting physician: Lucian Alvarez MD Patient name: MR. LUTHER CASTILLO Age: 68 years Gender: M Indication: Shortness of breath and Chest pressure / Chest tightness Stress ECG Conclusion: Conclusion: Normal with exception due to low heart rate recovery Stress ECG Summary: The patient's resting heart rate was 80 bpm and blood pressure was 132/70 mmHg. The patient exercised according to the Willem protocol. The estimated end-exercise MET level achieved using the FRIEND equation was 7.6, which is within the 50th to 75th percentile for age and sex. The estimated end-exercise MET level achieved using the previous ACSM equation was 9.1. The test was terminated due to shortness of breath and the total exercise time was 8 minutes and 0 seconds. Other symptoms during the test included SOB. The maximum heart rate was 164 bpm, which is 109% of the predicted heart rate for age. This is an adequate heart rate response. Peak blood pressure was 140/60 mmHg. The double product achieved was [address]. Medications: Last Used PREDNISONE LIPITOR FLOMAX TAGAMET CALCIUM CARBONATE Resting ECG: Normal Sinus Rhythm Symptoms at rest: No symptoms Exercise Protocol: Willem Stress Exercise Table: +-----+ +------- -+ +---+---+---+- ---+----+ Stage Speed (MPH) Grade(%) Time (min) HR SYS GERRY RPE METS +-----+ +------- -+ +---+---+---+- ---+----+ 1 1.7 10.0 3.0 133 132 62 13.0 4.2 +-----+ +------- -+ +---+---+---+- ---+----+ 2 2.5 12.0 6.0 151 142 60 14.0 6.1 +-----+ +------- -+ +---+---+---+- ---+----+ +-----+ +------- --+ +---+---+---+ ----+----+ Speed (MPH) Grade (%) Time (min) HR SYS GERRY RPE METS +-----+ +------- --+ +---+---+---+ ----+----+ Final 3.4 14.0 8.00 164 140 60 17.0 7.6 +-----+ +------- --+ +---+---+---+ ----+----+ Recovery Table: +------+ +---+--- +---+ Stage Time (min) HR SYS GERRY +------+ +---+--- +---+ 1 1.0 153 124 50 +------+ +---+--- +---+ 2 2.0 134 118 50 +------+ +---+--- +---+ 3 3.0 125 124 62 +------+ +---+--- +---+ 4 5.0 116 120 74 +------+ +---+--- +---+ 5 7.0 107 +------+ +---+--- +---+ Stress Observations: Resting HR: 80 bpm Peak HR: 164 bpm (109% MPHR) Resting BP: 132 / 70 mmHg Peak BP: 140 / 60 mmHg Total Exercise Time: 8 minutes 0 seconds METS achieved: 7.6 Chronotropic response index (CRI): 1.20 Heart rate recovery (HRR): 11 bpm Rate Pressure Product (RPP): 03629 Vega Treadmill Score: 8.0 Stress Exercise Observations: Reason for test termination: shortness of breath, Symptoms during test: Other symptoms during the test included SOB, Heart rate response: Adequate heart rate response, Normal CRI (>0.8 Not on B Jennifer) and Abnormal HRR (9-12 or 13-[address]/EC), Blood pressure response: Normal BP response, ST segment and T wave changes: No ST changes, Vega Treadmill Score: Normal Vega Treadmill Score (>=5) and Arrhythmias: No arrhythmias IMPORTANT NOTE REGARDING ESTIMATED MET VALUES: Effective 01/23/2020, the reference equation for determining estimated MET values for [facility] stress tests changed. Comparison of test results before and after that date may show a change in estimated MET values for peak/max exercise despite a test duration that is similar in length. The validity of the new FRIEND equation for exercise METS is endorsed by the [place] [employer]. Miky P, Jose LA, Ivania R, Reagan J, Chepe J. New Generalized Equation for Predicting Maximal Oxygen Uptake (from the Fitness Registry and the Importance of Exercise National Database). The [place] Journal of Cardiology. 2017;120(4):688-692). Final CC [employer] Image : [id number] See Link below for Image Normal [facility] Christian 06-16-2023 CNPN Telephone ([facility]) -- LUTHER CASTILLO ([id number]) 1955 M Date Time Provider Department 06/16/23 SAHARA OSWALD [facility] During your visit today, we recorded the following information about you: Sahara Oswald, ERIN 06/16/2023 2:19 PM Signed Spoke with patient regarding reminder for stress test tomorrow and given instructions. Allergies As of Date: 06/16/2023 Noted Allergy Reaction RAGWEED POLLEN 06/11/2023 14 - Other: See Comments Comments: Watering/itchy eyes Date Reviewed: 06/11/2023 Reviewed by: Jessy Flores LPN - Fully Assessed Reason for Visit: Reminder Call [[id number]] Prescriptions as of 06/16/2023 - predniSONE (DELTASONE) 5 mg tablet Take 1 tablet by mouth two times a day. - abiraterone 250 mg tablet TAKE 4 TABLETS (1,000MG) BY MOUTH ONCE DAILY ON AN EMPTY STOMACH 1 HOUR BEFORE OR 2 HOURS AFTER A MEAL - atorvastatin (LIPITOR) 20 mg tablet Take 1 tablet by mouth daily at bedtime. For cholesterol. - tamsulosin (FLOMAX) 0.4 mg TAKE 1 CAPSULE BY MOUTH EVERY DAY - cimetidine (TAGAMET) 200 mg tablet Take 200 mg by mouth twice daily. - calcium carbonate/vitamin D3 (CALCIUM + D ORAL) Take 1 tablet by mouth twice daily. - leuprolide acetate (ELIGARD SUBCUTANEOUS) Inject subcutaneously once every 6 months. - denosumab (XGEVA SUBCUTANEOUS) Inject subcutaneously once every month. - iv contrast (will be provided with radiology test) MRI Prostate Inject, intravenously, once for 1 dose. No IV access, insert saline lock prior to the beginning of sedation, infusion, injection of imaging exam. Discontinue saline lock post exam. If Pt. has a central line or IVAD, may access for administration according to line specific nursing protocol. Once exam is complete flush line and de-access according to line specific nursing protocol in the MR contrast administration guidelines link. Problem List As Of Date 06/16/2023 Noted Resolved ALLERGIC RHINITIS NOS [J30.9] ACTINIC KERATOSES (Premalignant AK's) [L57.0] 11/29/2005 BPH loc w urin obs/LUTS [N40.1] 04/24/2006 01/03/2017 Microcytic anemia [D50.9] 03/10/2008 ACUTE GASTRITIS W/O HEMORRHAGE [K29.00] 03/10/2008 Family history of colon cancer [Z80.0] 10/29/2011 10/09/2016 Benign neoplasm of rectum and anal canal [D12.8*03/06/2012 Internal hemorrhoids without mention of complic*03/06/2012 Family history of malignant neoplasm of gastroi*03/06/2012 10/09/2016 Actinic skin damage [L57.8] 09/30/2012 Solar Lentigines [L81.4] 09/30/2012 Hypopigmentation [L81.9] 09/30/2012 07/18/2016 Scars [L90.5] 09/30/2012 10/09/2016 Chronic actinic dermatitis [L57.8] 11/27/2012 07/18/2016 Other seborrheic dermatitis [L21.8] 11/27/2012 Postinflammatory skin changes [R23.8] 11/27/2012 07/18/2016 L-S radiculopathy [M54.17] 04/20/2013 07/13/2013 DDD (degenerative disc disease), lumbar [M51.36]04/20/2013 07/13/2013 Spinal stenosis of lumbar region [M48.061] 04/20/2013 Xerosis cutis [L85.3] 06/24/2013 07/18/2016 Lumbar disc herniation with radiculopathy [M51.*07/13/2013 Lumbosacral neuritis [M54.17] 07/13/2013 Lumbar degenerative disc disease [M51.36] 07/13/2013 Lumbar spondylosis [M47.816] 07/13/2013 04/27/2015 Osteoarthritis of spine with radiculopathy, lum*04/27/2015 Biceps tendonitis on right [M75.21] 05/30/2016 Impingement syndrome of right shoulder [M75.41] 08/15/2016 Biceps tendinitis of right shoulder [M75.21] 10/09/2016 Chronic pain in right shoulder [M25.511, G89.29]10/09/2016 Vasovagal reaction [R55] 10/09/2016 Gastroesophageal reflux disease with esophagiti*10/09/2016 Shoulder impingement syndrome, right [M75.41] 01/02/2017 Elevated prostate specific antigen (PSA) [R97.2*01/03/2017 Hypertrophy of prostate with urinary obstructio*01/03/2017 Family history of malignant neoplasm of prostat*02/13/2017 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 Money Position Officer: APRIL Transcribe Date/Time: Jun 11 2023 4:47P Dictated by : NIKKI EVANGELISTA MD This examination was interpreted and the report reviewed and electronically signed by: NIKKI EVANGELISTA MD on Jun 11 2023 4:47PM [facility] DIVISION OF RADIOLOGY * * *Final Report* * * DATE OF EXAM: Jun 11 2023 11:30AM WOX [id number] - XR CHEST 2V FRONTAL/LAT / PROCEDURE REASON: multiple diagnoses * * * * Physician Interpretation * * * * EXAMINATION: CHEST RADIOGRAPH (2 VIEW FRONTAL & LATERAL) CLINICAL HISTORY: SOB (shortness of breath) Chest pain, unspecified type MQ: XC2_6 EXAM DATE/TIME: 06/11/2023 11:30 AM COMPARISON: No relevant prior studies available. RESULT: Lines, tubes, and devices: None. Lungs and pleura: Bibasilar atelectasis is demonstrated. The lungs are otherwise clear of consolidations. No mass lesions seen. No pleural effusions or pneumothorax. Cardiomediastinal silhouette: The cardiac silhouette is within normal limits, with tortuosity of the thoracic aorta. Bones and soft tissues: There are degenerative changes in the spine. DIVISION OF RADIOLOGY Provider, [facility] - 06/11/2023 * * *Final Report* * * DATE OF EXAM: Jun 11 2023 11:30AM WOX [id number] - XR CHEST 2V FRONTAL/LAT / PROCEDURE REASON: multiple diagnoses * * * * Physician Interpretation * * * * EXAMINATION: CHEST RADIOGRAPH (2 VIEW FRONTAL & LATERAL) CLINICAL HISTORY: SOB (shortness of breath) Chest pain, unspecified type MQ: XC2_6 EXAM DATE/TIME: 06/11/2023 11:30 AM COMPARISON: No relevant prior studies available. RESULT: Lines, tubes, and devices: None. Lungs and pleura: Bibasilar atelectasis is demonstrated. The lungs are otherwise clear of consolidations. No mass lesions seen. No pleural effusions or pneumothorax. Cardiomediastinal silhouette: The cardiac silhouette is within normal limits, with tortuosity of the thoracic aorta. Bones and soft tissues: There are degenerative changes in the spine. IMPRESSION IMPRESSION: Bibasilar atelectasis. Money Position Officer: APRIL Transcribe Date/Time: Jun 11 2023 4:47P Dictated by : NIKKI EVANGELISTA MD This examination was interpreted and the report reviewed and electronically signed by: NIKKI EVANGELISTA MD on Jun 11 2023 4:47PM EST [facility] Radiology Study observation (narrative) [facility] XR Chest PA and LateralOrder ed By: Ccf Provider on 06-11-2023 [facility] Basic metabolic 2000 panelon 06-05-2023 Anion gap [Moles/Vol] 7 mmol/L Low 9 - 18 mmol/L [facility] Calcium [Mass/Vol] 8.7 mg/dL 8.5 - 10. 2 mg/dL [facility] Chloride [Moles/Vol] 102 mmol/L 97 - 10 5 mmol/L [facility] CO2 [Moles/Vol] 28 mmol/L 22 - 30 mmol/L [facility] Creatinine [Mass/Vol] 1.05 mg/dL 0.73 - 1.22 mg/dL [facility] Estimated Glomerular Filtration Rate 76 mL/min/1.73m >=60 mL/min/1.73m [facility] Glucose [Mass/Vol] 93 mg/dL 74 - 99 mg/dL [facility] Potassium [Moles/Vol] 3.7 mmol/L 3.7 - 5.1 mmol/L [facility] Sodium [Moles/Vol] 137 mmol/L 136 - 144 mmol/L [facility] Urea nitrogen [Mass/Vol] 20 mg/dL 9 - 24 mg/dL [facility] XR FINGER 3RD DIGIT 3 VIEWS RIGHTon 09-23-2022 XR FINGER 3RD DIGIT 3 VIEWS RIGHT ORIGINAL EXAMINATION: THREE XRAY VIEWS OF THE RIGHT FINGERS09/23/2022 3:04 pm COMPARISON: None. HISTORY: ORDERING SYSTEM PROVIDED HISTORY: Reason for Exam: Pain. Caught distal 3rd digit in door today, has small laceration. FINDINGS: No acute fracture or dislocation. No periosteal reaction or osseous erosions. Thin linear radiopaque foreign body seen on PA and oblique images measures up to 0.2 cm the ulnar aspect of the 1st interphalangeal joint. Asymmetric areas of joint space loss seen in the distal interphalangeal joints and metacarpophalangeal joints. There may be small marginal erosions scattered throughout the visualized digits. Linear soft tissue defect seen at the palmar aspect of the distal 3rd digit. IMPRESSION: No acute osseous process. 0.2 cm linear radiopaque foreign body at the ulnar aspect of the 1st interphalangeal joint. Recommend correlate with physical exam findings. Linear soft tissue defect seen at the palmar aspect of the distal 3rd digit. Degenerative changes, likely with superimposed synovial inflammatory arthropathy.. I have personally reviewed the images of this examination and agree with the resident's findings and interpretation. Interpreted by: David Kapoor MD Preliminary Report By: Radha Alicia Electronically signed By David Kapoor MD Dictated Date: 09/23/2022 3:09:49 PM Prelim Date: 09/23/2022 3:18:15 PM Sign Date: 09/23/2022 3:18:15 PM Ordering Provider: ALEXIS Bhatt [facility] ([place]) CNOVon 04-26-2022 CNOV Office Visit (AKURFL ) -- LUTHER CASTILLO ([id number]) 1955 M Date Time Provider Department 04/26/22 10:45 AM SP MCKEON During your visit today, we recorded the following information about you: Respiration Weight Height 18/minute 69.4 kg 1.702 m Sp Mckeon DO 05/07/2022 2:46 PM Signed [facility] [place] [facility] UR[facility] LOCATION: [address] [place] [address] ESTABLISHED PATIENT PATIENT INFO: Luther Castillo 67 year old Chief Complaint: Metastatic Prostate Cancer HPI Here for 6 month f/u. No complaints. 67-year-old gentleman with history of refractory anemia who present with an elevation PSA. Since a year ago his PSA has increased from 2 to 29. He has no urinary symptoms including hematuria or dysuria. He has no fever or chills. Prostate biopsy on April 19. MRI prostate showed cancer of prostate with capsular invasion some likely metastases to the pelvic bone region. His bone scan subsequently confirmed metastatic disease. Biopsy of prostate confirmed Rasheed 7, prostate cancer. He started androgen deprivation therapy with leuprolidse acetate 45 mg AND denosumab 120 mg monthly on 04/26/2021 for metastatic (M1) prostate cancer. Current treatment: Zytiga and prednisone leuprolidse acetate 45 mg every 6 months AND denosumab 120 mg monthly Interim history: He is doing well with androgen ablation therapy with Zytiga and prednisone. Patient has no increased fatigue, bone pain or hot flashes since he started this treatment. He has no fever, chills or dysuria. He denied hematuria, polyuria or polydipsia. His blood sugar nonfasting was 120. He has no nausea, vomiting or diarrhea. No breast swelling or tenderness. He has mild arthritic pain. 1-Duration: 2021 2-Location: prostate 3-Severity: N/A 4-Quality: Not applicable 5-Context: N/A 6-Timing: N/A 7-Modifying factors: No treatment prior to referral 8-Associated signs AND symptoms: no additional symptoms No question data found. PATHOLOGY: FINAL DIAGNOSIS A. PROSTATE, BIOPSY, RIGHT BASE: Prostatic adenocarcinoma, Rasheed score 3+4=7 (Grade group 2), involving 60% of one core (8 mm tumor length). - Percentage of Rasheed pattern 4 = 20%. - Expansile cribriform morphology is present. B. PROSTATE, BIOPSY, RIGHT MID: Prostatic adenocarcinoma, [place] score 4+3=7 (Grade group 3), involving 90% of one core (10 mm tumor length). - Percentage of Rasheed pattern 4 = 90%. - Expansile cribriform morphology is present. C. PROSTATE, BIOPSY, RIGHT APEX: Prostatic adenocarcinoma, Rasheed score 3+4=7 (Grade group 2), involving 35% of one core (3 mm tumor length). - Percentage of [place] pattern 4 = 5%. - Cribriform morphology is absent. D. PROSTATE, BIOPSY, RIGHT LATERAL BASE: High-grade prostatic intraepithelial neoplasia. E. PROSTATE, BIOPSY, RIGHT LATERAL MID: Prostatic adenocarcinoma, Rasheed score 3+4=7 (Grade group 2), involving 85% of one core (10 mm tumor length). - Percentage of Rasheed pattern 4 = 10%. - Definitive cribriform morphology is absent. F. PROSTATE, BIOPSY, RIGHT LATERAL APEX: Prostatic adenocarcinoma, Rasheed score 3+4=7 (Grade group 2), involving 50% of one core (6.5 mm tumor length). - Percentage of [place] pattern 4 = 5%. - Cribriform morphology is absent. G. PROSTATE, BIOPSY, LEFT BASE: Prostatic adenocarcinoma, [place] score 3+3=6 (Grade group 1), involving 4% of one core (0.5 mm tumor length). Separate focus with atypical small acinar proliferation. H. PROSTATE, BIOPSY, LEFT MID: Benign prostatic tissue. I. PROSTATE, BIOPSY, LEFT APEX: Benign prostatic tissue. J. PROSTATE, BIOPSY, LEFT LATERAL BASE: Benign prostatic tissue. K. PROSTATE, BIOPSY, LEFT LATERAL MID: Benign prostatic tissue. L. PROSTATE, BIOPSY, LEFT LATERAL APEX: Benign prostatic tissue. Prostate Cancer Biopsy Summary Number of cores examined: 12 Number of cores positive: 6 Highest Grade Group: 3 Highest % of core involvement: 90% Cribriform pattern 4: Present Intraductal carcinoma: Absent LAB: WBC (k/uL) Date Value 02/12/2022 5.73 RBC (m/uL) Date Value 02/12/2022 3.97 (L) Hemoglobin (g/dL) Date Value 02/12/2022 10.1 (L) Hematocrit (%) Date Value 02/12/2022 31.7 (L) MCV (fL) Date Value 02/12/2022 79.8 (L) MCH (pg) Date Value 02/12/2022 25.4 (L) MCHC (g/dL) Date Value 02/12/2022 31.9 RDW-CV (%) Date Value 02/12/2022 19.3 (H) Platelet Count (k/uL) Date Value 02/12/2022 174 MPV (fL) Date Value 02/12/2022 8.5 (L) Neut% (%) Date Value 02/12/2022 50.5 Lymph% (%) Date Value 02/12/2022 38.7 Ferry% (%) Date Value 02/12/2022 8.2 Eosin% (%) Date Value 05/28/2021 1.5 Baso% (%) Date Value 02/12/2022 0.5 Abs Neut (k/uL) Date Value 02/12/2022 2.89 Abs Ferry (k/uL) Date Value 02/12/2022 (more content not included)... Normal [facility] SURGICAL PATHOLOGYon 022 Addendum This addendum is iss ued to report the results of immunohistochemical stains. The original diagnoses remain unchanged. Immunohistochemical stain for Helicobacter pylori performed on the gastric biopsy is negative (Block A1). Laboratory Developed Test (LDT) Disclaimer: Performance characteristics of immunohistochemical, immunofluorescent and chromogenic in-situ hybridization tests have been determined by the performing laboratory within [facility] Pathology and Laboratory Medicine [place] ([facility], [facility], [facility] or [facility]) in a manner consistent with CLIA requirements. One or more of these tests have not been cleared or approved by the FDA. [facility] is regulated under CLIA as qualified to perform high-complexity testing. These tests are used for clinical purposes. They should not be regarded as investigational or for research. Positive and negative controls stain appropriately. [facility] Case Report Surgical Pathology R eport Case: [id number] Authorizing Provider: Lyn Mcgowan MD Collected: 02/27/2022 09:19 AM Ordering Location: Ambulatory Surgery Received: 02/27/2022 04:29 PM Pathologist: Tate Kirk MD Specimens: A) - ANTRUM (STOMACH) BIOPSY, Antral bx for H/H B) - ESOPHAGOGASTRIC JUNCTION BIOPSY [facility] FINAL DIAGNOSIS A. Stomach, antrum, biopsy: - Chronic inactive antral gastritis. - Immunohistochemistry for Helicobacter pylori will be reported in an addendum. B. Esophagogastric junction, biopsy: - Squamous epithelium with features of reflux. - Inflamed gastric cardia-type mucosa. - No evidence of intestinal metaplasia or dysplasia. [facility] Gross Description A. ANTRUM (STOMACH) BIOPSY Received in formalin is one piece of boyer, soft tissue measuring 0.6 x 0.3 x 0.1 cm. Totally submitted in one cassette. B. ESOPHAGOGASTRIC JUNCTION BIOPSY Received in formalin are two pieces of boyer, soft tissue aggregating to 0.7 x 0.2 x 0.1 cm. Totally submitted in one cassette. Gross examination performed at [facility], [address] [place] [address] FFS 02/28/2022 12:17 AM [facility] Performing Lab Diagnostic interpret ation performed at [facility], [facility] [place] [place] [address] CLIA# [id number] Sap Sd Analyst: Misha Prater M.D. [facility] COLONOSCOPY DIAGNOSTICon [facility] EGD DIAGNOSTICon 02-27-2022 [facility] CNOVon 09-05-2021 CNOV Office Visit (AKURFL ) -- LUTHER CASTILLO ([id number]) 1955 M Date Time Provider Department 09/05/21 10:15 AM SP MCKEON During your visit today, we recorded the following information about you: Blood pressure Weight Height 113/60 69.4 kg 1.727 m Sp Mckeon DO 09/05/2021 10:48 AM Signed ?? [facility] [place] [facility] LOCATION: [address] [place] [address] ESTABLISHED PATIENT PATIENT INFO: Luther Castillo 66 year old Chief Complaint: Metastatic Prostate Cancer HPI 65-year-old gentleman with history of refractory anemia who present with an?elevation PSA.??Since?a?year ago his PSA has increased from 2 to?29.??He has no urinary symptoms including hematuria or dysuria. ?He has no fever or chills. ?Prostate biopsy on April 19. ??MRI prostate showed?cancer of prostate with capsular invasion?some likely metastases to the pelvic bone region. ?His bone scan subsequently confirmed?metastatic disease.???Biopsy of prostate confirmed [place] 7,?prostate cancer. ? He started androgen deprivation therapy with?leuprolidse?acetate 45 mg AND?denosumab?120 mg?monthly on?04/26/2021?for metastatic?(M1)?prostate cancer.? ? Current treatment: Zytiga and prednisone leuprolidse?acetate 45 mg?every 6 months?AND?denosumab?120 mg?monthly ? Interim history:?He is doing well with androgen ablation therapy with Zytiga and prednisone. ?Patient has no increased fatigue, bone pain or hot flashes since he started?this?treatment. ??He has no fever,?chills or dysuria. ?He denied hematuria, polyuria or polydipsia. ?His blood sugar nonfasting was 120. ?He has no nausea, vomiting or diarrhea. ?No breast swelling or tenderness. He has mild arthritic pain. 1-Duration: 2021 2-Location: prostate 3-Severity: N/A 4-Quality: Not applicable 5-Context: N/A 6-Timing: N/A 7-Modifying factors: No treatment prior to referral 8-Associated signs AND symptoms: no additional symptoms No question data found. PATHOLOGY: FINAL DIAGNOSIS A. PROSTATE, BIOPSY, RIGHT BASE: Prostatic adenocarcinoma, [place] score 3+4=7 (Grade group 2), involving 60% of one core (8 mm tumor length). - Percentage of Rasheed pattern 4 = 20%. - Expansile cribriform morphology is present. ? B. PROSTATE, BIOPSY, RIGHT MID: Prostatic adenocarcinoma, Rasheed score 4+3=7 (Grade group 3), involving 90% of one core (10 mm tumor length). - Percentage of Rasheed pattern 4 = 90%. - Expansile cribriform morphology is present. ? C. PROSTATE, BIOPSY, RIGHT APEX: Prostatic adenocarcinoma, [place] score 3+4=7 (Grade group 2), involving 35% of one core (3 mm tumor length). - Percentage of [place] pattern 4 = 5%. - Cribriform morphology is absent. ? D. PROSTATE, BIOPSY, RIGHT LATERAL BASE: High-grade prostatic intraepithelial neoplasia. ? E. PROSTATE, BIOPSY, RIGHT LATERAL MID: Prostatic adenocarcinoma, Rasheed score 3+4=7 (Grade group 2), involving 85% of one core (10 mm tumor length). - Percentage of [place] pattern 4 = 10%. - Definitive cribriform morphology is absent. ? F. PROSTATE, BIOPSY, RIGHT LATERAL APEX: Prostatic adenocarcinoma, [place] score 3+4=7 (Grade group 2), involving 50% of one core (6.5 mm tumor length). - Percentage of Rasheed pattern 4 = 5%. - Cribriform morphology is absent. ? G. PROSTATE, BIOPSY, LEFT BASE: Prostatic adenocarcinoma, Rasheed score 3+3=6 (Grade group 1), involving 4% of one core (0.5 mm tumor length). Separate focus with atypical small acinar proliferation. ? H. PROSTATE, BIOPSY, LEFT MID: Benign prostatic tissue. ? I. PROSTATE, BIOPSY, LEFT APEX: Benign prostatic tissue. ? J. PROSTATE, BIOPSY, LEFT LATERAL BASE: Benign prostatic tissue. ? K. PROSTATE, BIOPSY, LEFT LATERAL MID: Benign prostatic tissue. ? L. PROSTATE, BIOPSY, LEFT LATERAL APEX: Benign prostatic tissue. ? ? Prostate Cancer Biopsy Summary ? Number of cores examined: 12 Number of cores positive: 6 Highest Grade Group: 3 Highest % of core involvement: 90% Cribriform pattern 4: Present Intraductal carcinoma: Absent? ? LAB: WBC (k/uL) Date Value 08/24/2021 8.25 RBC (m/uL) Date Value 08/24/2021 4.00 (L) Hemoglobin (g/dL) Date Value 08/24/2021 10.0 (L) Hematocrit (%) Date Value 08/24/2021 31.7 (L) MCV (fL) Date Value 08/24/2021 79.3 (L) MCH (pg) Date Value 08/24/2021 25.0 (L) MCHC (g/dL) Date Value 08/24/2021 31.5 RDW-CV (%) Date Value 08/24/2021 19.3 (H) Platelet Count (k/uL) Date Value 08/24/2021 171 MPV (fL) Date Value 08/24/2021 8.6 (L) Neut% (%) Date Value 08/24/2021 77.7 Lymph% (%) Date Value 08/24/2021 14.8 Ferry% (%) Date Value 08/24/2021 6.1 Eosin% (%) Date Value 05/28/2021 1.5 Baso% (%) Date Value 08/24/2021 0.1 Abs Neut (k/uL) Date Value 08/06 (more content not included)... Normal [facility] [place] BONE WHOLE BODYon 022 [facility] CNOVon 01-03-2017 CNOV Office Visit (AKURFL) LUTHER CASTILLO ([id number]) 1955 MDate Time Provider Department01/03/17 9:00 AM [facility]ATERS During your visit today, we recorded the following information about you: Blood pressure Weight Height 114/54 70.3 kg 1.727 mGregory Pierre Waters MD 01/03/2017 9:31 AM SignedNEW PATIENT HISTORY AND PHYSICAL EXAMPRIMARY CARE PHYSICIAN: AMY Raya FOR CONSULT: Elevated PSA and poor urinary streamREFERRING PHYSICIAN: Carl Vicente [facility] COMPLAINT: New Patient and PSA (Elevated )HISTORY OF PRESENT ILLNESS: Luther Castillo is a 61 year old male whopresents for opinion with regards to her rise in his PSA from 1.67 on 01/11/16up to 2.6 on 12/16/16. Patient denies any history of urinary tract infectionsor dysuria or hematuria. Patient does have some BPH with lower urinary tractsymptoms. He has nocturia ?0-1 and flow is intermittently week. He does havehesitancy and double voiding. He denies past surgeries or history ofurinary tract infections. He does have a family history of prostate cancer inthat his father of the disease at age 91. His father developed thedisease in his 80s and already had bony metastasis at that time. Patient doeshave normal erections at this point.REVIEW OF SYSTEMSReview of SystemsConstitutional: Negative for chills, fever and unexpected weight change.HENT: Negative for ear pain, sinus pressure and sore throat.Respiratory: Negative for chest tightness, shortness of breath and wheezing.Cardiovascular: Negative for chest pain and leg swelling.Gastrointestinal: Negative for abdominal pain, blood in stool, constipation,diarrhea and nausea.Endocrine: Negative for cold intolerance and heat intolerance.Genitourinary: Negative for decreased urine volume, difficulty urinating,dysuria, enuresis, flank pain, frequency, genital sores, hematuria and urgency.Neurological: Negative for dizziness, tremors and headaches.Hematological: Does not bruise/bleed easily.Psychiatric/Behavio ral: Negative for behavioral problems. The patient is notnervous/anxious.LAB:PSA Screening (ng/mL) Date Value 12/16/2016 2.60 01/11/2016 1.67 Color (no units) Date Value 04/18/2004 Dark Yellow Clarity (no units) Date Value 04/18/2004 Clear Glucose, Urine (mg/dL) Date Value 01/03/2017 neg Bilirubin, Urine (no units) Date Value 01/03/2017 neg Ketones, Urine (no units) Date Value 01/03/2017 neg Specific [place], Ur (no units) Date Value 01/03/2017 1.010 Hemoglobin/ Blood,Ur (no units) Date Value 01/03/2017 neg pH, Urine (no units) Date Value 01/03/2017 7.0 Protein, Urine (mg/dL) Date Value 01/03/2017 neg Urobilinogen (EU/dL) Date Value 04/18/2004 0.2 Nitrites (no units) Date Value 01/03/2017 neg Hemoglobin (g/dL) Date Value 10/09/2016 12.2 Hematocrit (%) Date Value 10/09/2016 39.5 WBC (k/uL) Date Value 10/09/2016 5.93 Platelet Count (k/uL) Date Value 10/09/2016 Platelets Clumped, Estimate Normal Neut% (%) Date Value 10/09/2016 62.2 Glucose (mg/dL) Date Value 12/16/2016 85 Potassium (mmol/L) Date Value 12/16/2016 4.0 Sodium (mmol/L) Date Value 12/16/2016 138 Chloride (mmol/L) Date Value 12/16/2016 100 CO2 (mmol/L) Date Value 12/16/2016 22 Creatinine (mg/dL) Date Value 12/16/2016 1.06 BUN (mg/dL) Date Value 12/16/2016 18 Anion Gap (mmol/L) Date Value 12/16/2016 16 Calcium (mg/dL) Date Value 12/16/2016 9.3 Specific [place], Ur (no units) Date Value 01/03/2017 1.010 Leukocytes (no units) Date Value 01/03/2017 neg No results found for: URCULMEDICATIONS:FLUARIX QUAD 4706-1593, PF, 60 mcg (15 mcg x 4)/0.5 mL injection,GAVILYTE-C 240-22.72-6.72 -5.84 gram solution,Omeprazole 40 mg capsule, Take 1 capsule by mouth once daily.ferrous sulfate (IRON) 325 mg (65 mg iron) tablet, Take 325 mg by mouth dailywith breakfast.HYDROcodone-acet aminophen (NORCO) 5-325 mg per tablet,tamsulosin ER (FLOMAX) 0.4 mg cp24, Take 1 capsule by mouth once daily.HISTORIESPAST MEDICAL HISTORYDiagnosis Date- Abdominal pain, left lower quadrant- Allergic rhinitis, cause unspecified Allergic rhinitis- arthritis- Benign neoplasm of rectum and anal canal- Gastroesophageal reflux disease with esophagitis 10/09/2016- Iron deficiency anemia, unspecified- Vasovagal reaction 10/09/2016PAST SURGICAL HISTORYProcedure Laterality Date- ARTHROS SHLDR DX W/WO SYNV BX Right 10/11/2016 Right shoulder arthroscopic rotator cuff debridement, biceps tenotomy- COLONOSCOP W/ OR W/O [facility] SPEC 10/2006 Colonoscopy- COLONOSCOP W/ OR W/O [facility] SPEC 03/06/2012 Colonoscopy- EGD W/O OR W/BRUSH/WASH 03/10/2008 EGD- EGD W/O OR W/BRUSH/WASH 02/26/16 EGD- PAST SURGICAL HISTORY OF right wrist surgery- PAST SURGICAL HISTORY OF 10/05/02 right carpal tunnel- PAST SURGICAL HISTORY OF 10/19/02 left carpal tunnel- REMOVAL OF TONSILS,ANDlt;10 Y/O Tonsillectomy- REPAIR COMPL ROTATOR CUFF AVULSN,CHR Right 10/11/2016 Right shoulder subacromial decompressionFAMILY HISTORYProblem Relation Age of Onset- None Mother- None Father- Colon Cancer Sister- Prostate Cancer Paternal UncleSOCIAL HISTORYSocial History Marital status: Spouse name: Robyn Years of education: Number of children: 3Occupational HistoryOccupation Employer Comment 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 No specific exercise regimenPHYSICAL EXAMINATIONBP 114/54 Ht 172.7 cm (5' 8ANDquot;) Wt 70.3 kg (155 lb) BMI 23.57 kg/a7Undkkuha ExamConstitutional: He is oriented to person, place, and time. He appearswell-developed and well-nourished.Pulmonary/C hest: No respiratory distress.Abdominal: Soft. Normal appearance and bowel sounds are normal. He exhibits nodistension. There is no tenderness.Genitourinary: Testes normal and penis normal. Circumcised.Genitourinary Comments: [place] 30-40 g enlarged benign feeling. Symmetricwithout nodules tenderness or induration.Neurological: He is alert and oriented to person, place, and time.Skin: No rash noted.Psychiatric: He has a normal mood and affect. His speech is normal and behavioris normal.Vitals reviewed.Radiologic Exams:1. Elevated prostate specific antigen (PSA) - ICD9: 790.93, ICD10: R97.20(primary diagnosis)2. Hypertrophy of prostate with urinary obstruction - ICD9: 600.01, 599.69,ICD10: N40.1, N13.83. Poor urinary stream - ICD9: 788.62, ICD10: R39.124. Hesitancy of micturition - ICD9: 788.64, ICD10: R39.115. Family history of malignant neoplasm of prostate - ICD9: V16.42, ICD10:Z80.42Impression:1. Slight rise in PSA but normal age-specific PSA2. Family medical history prostate cancer3. BPH with hesitancy and diminished streamPlan:1. Patient reassured that PSA levels are normal for a man his age and that thechange was not that significant at these low levels.2. Recommended repeat PSAs and rectals on a yearly ASIS especially since he hasfamily history of prostate cancer3. Try tamsulosin 0.4 mg every evening4. Follow-up in 4-6 weeks5. Progress note to primary careGmaye Waters MD01/03/2017Dorcas Waters MD 01/03/2017 9:26 AM Signed1) try tamsulosin 1 every evening2) follow-up in 4-6 weeksReferring Provider: CARL VICENTE [[id number]]Allergies As of Date: 01/03/2017 Noted Allergy Reactionenvirornmental [Other] 11/29/2005 5 - IntoleranceDate Reviewed: 01/03/2017Reviewed by: Carley Christensen MA - Fully AssessedReason for Visit: New Patient [172] PSA [337] Cmt: ElevatedPrimary Visit Diagnosis:Elevated prostate specific antigen (PSA) [R97.20] Other Visit Diagnoses:Hypertrophy of prostate with urinary obstruction [N40.1, N13.8] Poor urinary stream [R39.12] Hesitancy of micturition [R39.11] Family history of malignant neoplasm of prostate [Z80.42]Order(s):UA DIP B/O [[id number]] Order #: [id number] tamsulosin ER (FLOMAX) 0.4 mg ip71Vlsv 1 capsule by mouth once daily.Disp: 30 capsuleRfl: 2Prescriptions as of 01/03/2017 Sig: FLUARIX QUAD 2320-9724 (PF) 6* GAVILYTE-C 240 GRAM-22.72 GRA* OMEPRAZOLE 40 MG CAPSULE,MARJORIE* Take 1 capsule by mouth once * FERROUS SULFATE 325 MG (65 MG* Take 325 mg by mouth daily wi* HYDROCODONE 5 MG-ACETAMINOPHE* TAMSULOSIN 0.4 MG CAPSULE Take 1 capsule by mouth once *Medication notes this encounter HYDROCODONE 5 MG-ACETAMINOPHEN 325 MG TABLET >> Carley Christensen MA 01/03/2017 9:13 AM >> CARLEY CHRISTENSEN MA Fri Jan 03, 2017 9:13 AM Not takingProblem List As Of Date 01/03/2017 Noted Resolved ALLERGIC RHINITIS NOS [J30.9] More... ACTINIC KERATOSES (Premalignant AK's) [L57.0] INVALID FOR* BPH loc w urin obs/LUTS [N40.1] INVALID FOR*01/03/2017 IRON DEFIC ANEMIA NOS [D50.9] INVALID FOR* ACUTE GASTRITIS W/O HEMORRHAGE [K29.00] INVALID FOR* Family history of colon cancer [Z80.0] INVALID FOR*10/09/2016 Benign neoplasm of rectum and anal canal [D12.8*INVALID FOR* Internal hemorrhoids without mention of complic*INVALID FOR* Family history of malignant neoplasm of gastroi*INVALID FOR*10/09/2016 Actinic skin damage [L57.8] INVALID FOR* Solar Lentigines [L81.4] INVALID FOR* Hypopigmentation [L81.9] INVALID FOR*07/18/2016 Scars [L90.5] INVALID FOR*10/09/2016 Chronic actinic dermatitis [L57.8] INVALID FOR*07/18/2016 Other seborrheic dermatitis [L21.8] INVALID FOR* Postinflammatory skin changes [R23.4] INVALID FOR*07/18/2016 L-S radiculopathy [M54.17] INVALID FOR*07/13/2013 DDD (degenerative disc disease), lumbar [M51.36]INVALID FOR*07/13/2013 Spinal stenosis of lumbar region [M48.06] INVALID FOR* Xerosis cutis [L85.3] INVALID FOR*07/18/2016 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 Chronic pain in right shoulder [M25.511, G89.29]INVALID FOR* More... Vasovagal reaction [R55] INVALID FOR* Gastroesophageal reflux disease with esophagiti*INVALID FOR* Shoulder impingement syndrome, right [M75.41] INVALID FOR* More... Elevated prostate specific antigen (PSA) [R97.2*INVALID FOR* Hypertrophy of prostate with urinary obstructio*INVALID FOR* Other instructions from your clinician: 1) try tamsulosin 1 every evening 2) follow-up in 4-6 weeksPrescriptions ordered this encounter Disp Refills Start End TAMSULOSIN 0.4 MG CAPSULE 30 c* 2 01/03/2017 Route: ORAL Sig: Take 1 capsule by mouth once daily.Disposition: Return in about 4 weeks (around 01/31/2017).Follow-up and Disposition History RecordedLetter TextEncounter Number: [id number] Status:Closed by DORCAS WATERS MD on 01/03/17 [facility] PROGRESSon 01-03-2017 PROGRESS HNO ID: [id number] thor: Dorcas WatersService: (none)Author Type: PhysicianType: Progress NotesFiled: 01/03/2017 9:31 AMNote Text:NEW PATIENT HISTORY AND PHYSICAL EXAMPRIMARY CARE PHYSICIAN: AMY Raya FOR CONSULT: Elevated PSA and poor urinary streamREFERRING PHYSICIAN: Carl Vicente, [facility] COMPLAINT: New Patient and PSA (Elevated )HISTORY OF PRESENT ILLNESS: Luther Castillo is a 61 year old male whopresents for opinion with regards to her rise in his PSA from 1.67 on01/11/16 up to 2.6 on 12/16/16. Patient denies any history of urinarytract infections or dysuria or hematuria. Patient does have some BPH withlower urinary tract symptoms. He has nocturia ?0-1 and flow isintermittently week. He does have hesitancy and double voiding. Hedenies past surgeries or history of urinary tract infections. He doeshave a family history of prostate cancer in that his father of thedisease at age 91. His father developed the disease in his 80s andalready had bony metastasis at that time. Patient does have normalerections at this point.REVIEW OF SYSTEMSReview of SystemsConstitutional: Negative for chills, fever and unexpected weight change.HENT: Negative for ear pain, sinus pressure and sore throat.Respiratory: Negative for chest tightness, shortness of breath andwheezing.Cardiovascular : Negative for chest pain and leg swelling.Gastrointestinal: Negative for abdominal pain, blood in stool,constipation, diarrhea and nausea.Endocrine: Negative for cold intolerance and heat intolerance.Genitourinary: Negative for decreased urine volume, difficulty urinating,dysuria, enuresis, flank pain, frequency, genital sores, hematuria andurgency.Neurological: Negative for dizziness, tremors and headaches.Hematological: Does not bruise/bleed easily.Psychiatric/Behavio ral: Negative for behavioral problems. The patient isnot nervous/anxious.LAB:PSA Screening (ng/mL) Date Value 12/16/2016 2.60 01/11/2016 1.67 Color (no units) Date Value 04/18/2004 Dark Yellow Clarity (no units) Date Value 04/18/2004 Clear Glucose, Urine (mg/dL) Date Value 01/03/2017 neg Bilirubin, Urine (no units) Date Value 01/03/2017 neg Ketones, Urine (no units) Date Value 01/03/2017 neg Specific [place], Ur (no units) Date Value 01/03/2017 1.010 Hemoglobin/ Blood,Ur (no units) Date Value 01/03/2017 neg pH, Urine (no units) Date Value 01/03/2017 7.0 Protein, Urine (mg/dL) Date Value 01/03/2017 neg Urobilinogen (EU/dL) Date Value 04/18/2004 0.2 Nitrites (no units) Date Value 01/03/2017 neg Hemoglobin (g/dL) Date Value 10/09/2016 12.2 Hematocrit (%) Date Value 10/09/2016 39.5 WBC (k/uL) Date Value 10/09/2016 5.93 Platelet Count (k/uL) Date Value 10/09/2016 Platelets Clumped, Estimate Normal Neut% (%) Date Value 10/09/2016 62.2 Glucose (mg/dL) Date Value 12/16/2016 85 Potassium (mmol/L) Date Value 12/16/2016 4.0 Sodium (mmol/L) Date Value 12/16/2016 138 Chloride (mmol/L) Date Value 12/16/2016 100 CO2 (mmol/L) Date Value 12/16/2016 22 Creatinine (mg/dL) Date Value 12/16/2016 1.06 BUN (mg/dL) Date Value 12/16/2016 18 Anion Gap (mmol/L) Date Value 12/16/2016 16 Calcium (mg/dL) Date Value 12/16/2016 9.3 Specific [place], Ur (no units) Date Value 01/03/2017 1.010 Leukocytes (no units) Date Value 01/03/2017 neg No results found for: URCULMEDICATIONS:FLUARIX QUAD 1710-3401, PF, 60 mcg (15 mcg x 4)/0.5 mL injection,GAVILYTE-C 240-22.72-6.72 -5.84 gram solution,Omeprazole 40 mg capsule, Take 1 capsule by mouth once daily.ferrous sulfate (IRON) 325 mg (65 mg iron) tablet, Take 325 mg by mouthdaily with breakfast.HYDROcodone-acet aminophen (NORCO) 5-325 mg per tablet,tamsulosin ER (FLOMAX) 0.4 mg cp24, Take 1 capsule by mouth once daily.HISTORIESPAST MEDICAL HISTORYDiagnosis Date- Abdominal pain, left lower quadrant- Allergic rhinitis, cause unspecified Allergic rhinitis- arthritis- Benign neoplasm of rectum and anal canal- Gastroesophageal reflux disease with esophagitis 10/09/2016- Iron deficiency anemia, unspecified- Vasovagal reaction 10/09/2016PAST SURGICAL HISTORYProcedure Laterality Date- ARTHROS SHLDR DX W/WO SYNV BX Right 10/11/2016 Right shoulder arthroscopic rotator cuff debridement, biceps tenotomy- COLONOSCOP W/ OR W/O [facility] SPEC 10/2006 Colonoscopy- COLONOSCOP W/ OR W/O [facility] SPEC 03/06/2012 Colonoscopy- EGD W/O OR W/BRUSH/WASH 03/10/2008 EGD- EGD W/O OR W/BRUSH/WASH 02/26/16 EGD- PAST SURGICAL HISTORY OF right wrist surgery- PAST SURGICAL HISTORY OF 10/05/02 right carpal tunnel- PAST SURGICAL HISTORY OF 10/19/02 left carpal tunnel- REMOVAL OF TONSILS,<10 Y/O Tonsillectomy- REPAIR COMPL ROTATOR CUFF AVULSN,CHR Right 10/11/2016 Right shoulder subacromial decompressionFAMILY HISTORYProblem Relation Age of Onset- None Mother- None Father- Colon Cancer Sister- Prostate Cancer Paternal UncleSOCIAL HISTORYSocial History Marital status: Spouse name: Robyn Years of education: Number of children: 3Occupational HistoryOccupation Employer Comment 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 No specific exerciseregimenPHYSICAL EXAMINATIONBP 114/54 Ht 172.7 cm (5' 8) Wt 70.3 kg (155 lb) BMI 23.57 kg/x8Dylxjngo ExamConstitutional: He is oriented to person, place, and time. He appearswell-developed and well-nourished.Pulmonary/C hest: No respiratory distress.Abdominal: Soft. Normal appearance and bowel sounds are normal. Heexhibits no distension. There is no tenderness.Genitourinary: Testes normal and penis normal. Circumcised.Genitourinary Comments: Darrylley 30-40 g enlarged benign feeling.Symmetric without nodules tenderness or induration.Neurological: He is alert and oriented to person, place, and time.Skin: No rash noted.Psychiatric: He has a normal mood and affect. His speech is normal andbehavior is normal.Vitals reviewed.Radiologic Exams:1. Elevated prostate specific antigen (PSA) - ICD9: 790.93, ICD10: R97.20(primary diagnosis)2. Hypertrophy of prostate with urinary obstruction - ICD9: 600.01,599.69, ICD10: N40.1, N13.83. Poor urinary stream - ICD9: 788.62, ICD10: R39.124. Hesitancy of micturition - ICD9: 788.64, ICD10: R39.115. Family history of malignant neoplasm of prostate - ICD9: V16.42, ICD10:Z80.42Impression:1. Slight rise in PSA but normal age-specific PSA2. Family medical history prostate cancer3. BPH with hesitancy and diminished streamPlan:1. Patient reassured that PSA levels are normal for a man his age and thatthe change was not that significant at these low levels.2. Recommended repeat PSAs and rectals on a yearly ASIS especially sincehe has family history of prostate cancer3. Try tamsulosin 0.4 mg every evening4. Follow-up in 4-6 weeks5. Progress note to primary careGregory Pierre Waters MD01/03/2017 Normal [facility] Vital Signs Date Time Vital Sign Value Performing Clinician Memo ma 09-10-2024 13:26-0400 Diastolic blood pressure 59 mm[Hg] Injection Wstr Work Phone: [facility] 09-10-2024 13:26-0400 Heart rate 91 /min Injection Wstr Work Phone: [facility] 09-10-2024 13:26-0400 Respiratory rate 12 /min Injection Wstr Work Phone: [facility] 09-10-2024 13:26-0400 SaO2% (BldA) [Mass fraction] 99 % Injection Wstr Work Phone: [facility] 09-10-2024 13:26-0400 Systolic blood pressure 96 mm[Hg] Injection Wstr Work Phone: [facility] 08-11-2024 09:12-0400 Body mass index (BMI) [Ratio] 23.87 kg/m2 Dereje Herring MD Work Phone: [facility] 08-11-2024 09:12-0400 Body temperature 97.3 [degF] Dereje Herring MD Work Phone: [facility] 08-11-2024 09:12-0400 Body weight 67.36 kg Dereje Herring MD Work Phone: [facility] 08-11-2024 09:12-0400 Diastolic blood pressure 59 mm[Hg] Dereje Herring MD Work Phone: [facility] 08-11-2024 09:12-0400 Heart rate 94 /min Dereje Herring MD Work Phone: [facility] 08-11-2024 09:12-0400 SaO2% (BldA) [Mass fraction] 98 % Dereje Herring MD Work Phone: [facility] 08-11-2024 09:12-0400 Systolic blood pressure 101 mm[Hg] Dereje Herring MD Work Phone: [facility] 08-09-2024 15:20-0400 Body height 168 cm Candace Guerra APRN.CNP Work Phone: [facility] 08-09-2024 15:20-0400 Body mass index (BMI) [Ratio] 24.38 kg/m2 Candace Guerra APRN.DIRECTOR OF HEALTH CARE MARKETING Work Phone: [facility] 08-09-2024 15:20-0400 Body weight 68.8 kg Candace Guerra APRN.DIRECTOR OF HEALTH CARE MARKETING Work Phone: [facility] 08-09-2024 15:20-0400 Diastolic blood pressure 64 mm[Hg] Candace Guerra APRN.DIRECTOR OF HEALTH CARE MARKETING Work Phone: [facility] 08-09-2024 15:20-0400 Heart rate 95 /min Candace Guerra APRN.DIRECTOR OF HEALTH CARE MARKETING Work Phone: [facility] 08-09-2024 15:20-0400 SaO2% (BldA) [Mass fraction] 97 % Candace Guerra APRN.DIRECTOR OF HEALTH CARE MARKETING Work Phone: [facility] 08-09-2024 15:20-0400 Systolic blood pressure 110 mm[Hg] Candace Guerra APRN.DIRECTOR OF HEALTH CARE MARKETING Work Phone: [facility] 07-14-2024 10:33-0400 Body mass index (BMI) [Ratio] 24.27 kg/m2 Injection Wstr Work Phone: [facility] 07-14-2024 10:33-0400 Body temperature 97.59 [degF] Injection Wstr Work Phone: [facility] 07-14-2024 10:33-0400 Body weight 68.49 kg Injection Wstr Work Phone: [facility] 07-14-2024 10:33-0400 Diastolic blood pressure 67 mm[Hg] Injection Wstr Work Phone: [facility] 07-14-2024 10:33-0400 Heart rate 74 /min Injection Wstr Work Phone: [facility] 07-14-2024 10:33-0400 Respiratory rate 12 /min Injection Wstr Work Phone: [facility] 07-14-2024 10:33-0400 SaO2% (BldA) [Mass fraction] 100 % Injection Wstr Work Phone: [facility] 07-14-2024 10:33-0400 Systolic blood pressure 113 mm[Hg] Injection Wstr Work Phone: [facility] 06-24-2024 09:11-0400 Body mass index (BMI) [Ratio] 24.35 kg/m2 Suresh Hodges MD Work Phone: [facility] 06-24-2024 09:11-0400 Body temperature 97.2 [degF] Suresh Hodges MD Work Phone: [facility] 06-24-2024 09:110400 Body weight 68.72 kg Suresh Hodges MD Work Phone: [facility] 06-24-2024 09:11-0400 Diastolic blood pressure 74 mm[Hg] Suresh Hodges MD Work Phone: [facility] 06-24-2024 09:11-0400 Heart rate 97 /min Suresh Hodges MD Work Phone: [facility] 06-24-2024 09:11-0400 Respiratory rate 14 /min Suresh Hodges MD Work Phone: [facility] 06-24-2024 09:11-0400 SaO2% (BldA) [Mass fraction] 98 % Suresh Hodges MD Work Phone: [facility] 06-24-2024 09:11-0400 Systolic blood pressure 114 mm[Hg] Suresh Hodges MD Work Phone: [facility] 06-16-2024 10:35-0400 Body mass index (BMI) [Ratio] 24.27 kg/m2 Injection Wstr Work Phone: [facility] 06-16-2024 10:35-0400 Body temperature 98.2 [degF] Injection Wstr Work Phone: [facility] 06-16-2024 10:35-0400 Body weight 68.49 kg Injection Wstr Work Phone: [facility] 06-16-2024 10:35-0400 Diastolic blood pressure 66 mm[Hg] Injection Wstr Work Phone: [facility] 06-16-2024 10:35-0400 Heart rate 96 /min Injection Wstr Work Phone: [facility] 06-16-2024 10:35-0400 Respiratory rate 12 /min Injection Wstr Work Phone: [facility] 06-16-2024 10:35-0400 SaO2% (BldA) [Mass fraction] 97 % Injection Wstr Work Phone: [facility] 06-16-2024 10:35-0400 Systolic blood pressure 105 mm[Hg] Injection Wstr Work Phone: [facility] 05-12-2024 10:10-0500 Body mass index (BMI) [Ratio] 24.59 kg/m2 Injection Wstr Work Phone: [facility] 05-12-2024 10:10-0500 Body weight 69.4 kg Injection Wstr Work Phone: [facility] 05-12-2024 10:10-0500 Diastolic blood pressure 74 mm[Hg] Injection Wstr Work Phone: [facility] 05-12-2024 10:10-0500 Heart rate 79 /min Injection Wstr Work Phone: [facility] 05-12-2024 10:10-0500 Respiratory rate 12 /min Injection Wstr Work Phone: [facility] 05-12-2024 10:10-0500 SaO2% (BldA) [Mass fraction] 97 % Injection Wstr Work Phone: [facility] 05-12-2024 10:10-0500 Systolic blood pressure 119 mm[Hg] Injection Wstr Work Phone: [facility] 04-14-2024 10:15-0500 Body mass index (BMI) [Ratio] 24.43 kg/m2 Injection Wstr Work Phone: [facility] 04-14-2024 10:15-0500 Body temperature 97.9 [degF] Injection Wstr Work Phone: [facility] 04-14-2024 10:15-0500 Body weight 68.95 kg Injection Wstr Work Phone: [facility] 04-14-2024 10:15-0500 Diastolic blood pressure 68 mm[Hg] Injection Wstr Work Phone: [facility] 04-14-2024 10:15-0500 Heart rate 91 /min Injection Wstr Work Phone: [facility] 04-14-2024 10:15-0500 SaO2% (BldA) [Mass fraction] 98 % Injection Wstr Work Phone: [facility] 04-14-2024 10:15-0500 Systolic blood pressure 133 mm[Hg] Injection Wstr Work Phone: [facility] 03-17-2024 09:46-0500 Body mass index (BMI) [Ratio] 23.62 kg/m2 Injection Wstr Work Phone: [facility] 03-17-2024 09:46-0500 Body temperature 97.7 [degF] Injection Wstr Work Phone: [facility] 03-17-2024 09:46-0500 Body weight 66.68 kg Injection Wstr Work Phone: [facility] 03-17-2024 09:46-0500 Diastolic blood pressure 65 mm[Hg] Injection Wstr Work Phone: [facility] 03-17-2024 09:46-0500 Heart rate 82 /min Injection Wstr Work Phone: [facility] 03-17-2024 09:46-0500 Respiratory rate 12 /min Injection Wstr Work Phone: [facility] 03-17-2024 09:46-0500 SaO2% (BldA) [Mass fraction] 94 % Injection Wstr Work Phone: [facility] 03-17-2024 09:46-0500 Systolic blood pressure 122 mm[Hg] Injection Wstr Work Phone: [facility] 03-10-2024 09:00-0500 Body height 168 cm Catherine Podlogar COMMUNITY LIAISON OFFICER.DIRECTOR OF HEALTH CARE MARKETING Work Phone: [facility] 03-10-2024 09:00-0500 Body mass index (BMI) [Ratio] 22.6 kg/m2 Catherine Podlogar COMMUNITY LIAISON OFFICER.DIRECTOR OF HEALTH CARE MARKETING Work Phone: [facility] 03-10-2024 09:00-0500 Body weight 63.8 kg Catherine Podlogar COMMUNITY LIAISON OFFICER.DIRECTOR OF HEALTH CARE MARKETING Work Phone: [facility] 03-10-2024 09:00-0500 Diastolic blood pressure 76 mm[Hg] Catherine Podlogar COMMUNITY LIAISON OFFICER.DIRECTOR OF HEALTH CARE MARKETING Work Phone: [facility] 03-10-2024 09:00-0500 Heart rate 84 /min Catherine Podlogar COMMUNITY LIAISON OFFICER.DIRECTOR OF HEALTH CARE MARKETING Work Phone: [facility] 03-10-2024 09:00-0500 Respiratory rate 18 /min Catherine Podlogar COMMUNITY LIAISON OFFICER.DIRECTOR OF HEALTH CARE MARKETING Work Phone: [facility] 03-10-2024 09:00-0500 Systolic blood pressure 124 mm[Hg] Catherine Podlogar COMMUNITY LIAISON OFFICER.DIRECTOR OF HEALTH CARE MARKETING Work Phone: [facility] 02-18-2024 09:39-0500 Body mass index (BMI) [Ratio] 22.87 kg/m2 Injection Wstr Work Phone: [facility] 02-18-2024 09:39-0500 Body temperature 97 [degF] Injection Wstr Work Phone: [facility] 02-18-2024 09:39-0500 Body weight 66.22 kg Injection Wstr Work Phone: [facility] 02-18-2024 09:39-0500 Diastolic blood pressure 61 mm[Hg] Injection Wstr Work Phone: [facility] 02-18-2024 09:39-0500 Heart rate 90 /min Injection Wstr Work Phone: [facility] 02-18-2024 09:39-0500 Respiratory rate 12 /min Injection Wstr Work Phone: [facility] 02-18-2024 09:39-0500 SaO2% (BldA) [Mass fraction] 97 % Injection Wstr Work Phone: [facility] 02-18-2024 09:39-0500 Systolic blood pressure 98 mm[Hg] Injection Wstr Work Phone: [facility] 02-03-2024 10:14-0400 Body mass index (BMI) [Ratio] 23.49 kg/m2 Arsalan Ocampo MD Work Phone: [facility] 02-03-2024 10:14-0400 Body weight 68.04 kg Arsalan Ocampo MD Work Phone: [facility] 02-03-2024 10:14-0400 Diastolic blood pressure 58 mm[Hg] Arsalan Ocampo MD Work Phone: [facility] 02-03-2024 10:14-0400 Heart rate 93 /min Arsalan Ocampo MD Work Phone: [facility] 02-03-2024 10:14-0400 Respiratory rate 16 /min Arsalan Ocampo MD Work Phone: [facility] 02-03-2024 10:14-0400 SaO2% (BldA) [Mass fraction] 99 % Arsalan Ocampo MD Work Phone: [facility] 02-03-2024 10:14-0400 Systolic blood pressure 118 mm[Hg] Arsalan Ocampo MD Work Phone: [facility] 01-21-2024 09:25-0400 Body mass index (BMI) [Ratio] 23.57 kg/m2 Dereje Herring MD Work Phone: [facility] 01-21-2024 09:25-0400 Body temperature 96.49 [degF] Dereje Herring MD Work Phone: [facility] 01-21-2024 09:25-0400 Body weight 68.27 kg Dereje Herring MD Work Phone: [facility] 01-21-2024 09:25-0400 Diastolic blood pressure 72 mm[Hg] Dereje Herring MD Work Phone: [facility] 01-21-2024 09:25-0400 Heart rate 94 /min Dereje Herring MD Work Phone: [facility] 01-21-2024 09:25-0400 SaO2% (BldA) [Mass fraction] 98 % Dereje Herring MD Work Phone: [facility] 01-21-2024 09:25-0400 Systolic blood pressure 118 mm[Hg] Dereje Herring MD Work Phone: [facility] 12-24-2023 11:37-0400 Body mass index (BMI) [Ratio] 23.79 kg/m2 Catherine Podlogar COMMUNITY LIAISON OFFICER.DIRECTOR OF HEALTH CARE MARKETING Work Phone: [facility] 12-24-2023 11:37-0400 Body weight 68.9 kg Catherine Podlogar COMMUNITY LIAISON OFFICER.DIRECTOR OF HEALTH CARE MARKETING Work Phone: [facility] 12-24-2023 11:37-0400 Diastolic blood pressure 62 mm[Hg] Catherine Podlogar COMMUNITY LIAISON OFFICER.DIRECTOR OF HEALTH CARE MARKETING Work Phone: [facility] 12-24-2023 11:37-0400 Heart rate 102 /min Catherine Podlogar COMMUNITY LIAISON OFFICER.DIRECTOR OF HEALTH CARE MARKETING Work Phone: [facility] 12-24-2023 11:37-0400 Respiratory rate 18 /min Catherine Podlogar COMMUNITY LIAISON OFFICER.DIRECTOR OF HEALTH CARE MARKETING Work Phone: [facility] 12-24-2023 11:37-0400 SaO2% (BldA) [Mass fraction] 98 % Catherine Podlogar COMMUNITY LIAISON OFFICER.DIRECTOR OF HEALTH CARE MARKETING Work Phone: [facility] 12-24-2023 11:37-0400 Systolic blood pressure 112 mm[Hg] Catherine Podlogar COMMUNITY LIAISON OFFICER.DIRECTOR OF HEALTH CARE MARKETING Work Phone: [facility] 12-17-2023 09:14-0400 Body mass index (BMI) [Ratio] 24.28 kg/m2 Bashir Wstr Work Phone: [facility] 12-17-2023 09:140400 Body weight 70.31 kg Injection Wstr Work Phone: [facility] 12-17-2023 09:14-0400 Diastolic blood pressure 66 mm[Hg] Injection Wstr Work Phone: [facility] 12-17-2023 09:14-0400 Heart rate 91 /min Injection Wstr Work Phone: [facility] 12-17-2023 09:14-0400 Respiratory rate 12 /min Injection Wstr Work Phone: [facility] 12-17-2023 09:14-0400 SaO2% (BldA) [Mass fraction] 99 % Injection Wstr Work Phone: [facility] 12-17-2023 09:14-0400 Systolic blood pressure 119 mm[Hg] Injection Wstr Work Phone: [facility] 11-19-2023 10:52-0400 Body mass index (BMI) [Ratio] 23.65 kg/m2 Injection Wstr Work Phone: [facility] 11-19-2023 10:52-0400 Body temperature 97 [degF] Injection Wstr Work Phone: [facility] 11-19-2023 10:52-0400 Body weight 68.49 kg Injection Wstr Work Phone: [facility] 11-19-2023 10:52-0400 Diastolic blood pressure 65 mm[Hg] Injection Wstr Work Phone: [facility] 11-19-2023 10:52-0400 Heart rate 79 /min Injection Wstr Work Phone: [facility] 11-19-2023 10:52-0400 Respiratory rate 12 /min Injection Wstr Work Phone: [facility] 11-19-2023 10:52-0400 SaO2% (BldA) [Mass fraction] 95 % Injection Wstr Work Phone: [facility] 11-19-2023 10:52-0400 Systolic blood pressure 109 mm[Hg] Injection Wstr Work Phone: [facility] 10-22-2023 08:18-0400 Body mass index (BMI) [Ratio] 23.88 kg/m2 Dereje Herring MD Work Phone: [facility] 10-22-2023 08:18-0400 Body temperature 97 [degF] Dereje Herring MD Work Phone: [facility] 10-22-2023 08:18-0400 Body weight 69.17 kg Dereje Herring MD Work Phone: [facility] 10-22-2023 08:18-0400 Diastolic blood pressure 72 mm[Hg] Dereje Herring MD Work Phone: [facility] 10-22-2023 08:18-0400 Heart rate 80 /min Dereje Herring MD Work Phone: [facility] 10-22-2023 08:18-0400 SaO2% (BldA) [Mass fraction] 97 % Dereje Herring MD Work Phone: [facility] 10-22-2023 08:18-0400 Systolic blood pressure 119 mm[Hg] Dereje Herring MD Work Phone: [facility] 10-16-2023 15:02-0400 Body height 170.2 cm Dorcas Champagne DO Work Phone: [facility] 10-16-2023 15:02-0400 Body mass index (BMI) [Ratio] 24.17 kg/m2 Dorcas Champagne DO Work Phone: [facility] 10-16-2023 15:02-0400 Body weight 70 kg Dorcas Champagne DO Work Phone: [facility] 10-16-2023 15:02-0400 Diastolic blood pressure 64 mm[Hg] Dorcas Champagne DO Work Phone: [facility] 10-16-2023 15:02-0400 Heart rate 98 /min Dorcas Champagne DO Work Phone: [facility] 10-16-2023 15:02-0400 SaO2% (BldA) [Mass fraction] 97 % Dorcas Champagne DO Work Phone: [facility] 10-16-2023 15:02-0400 Systolic blood pressure 118 mm[Hg] Dorcas Champagne DO Work Phone: [facility] 10-02-2023 08:57-0400 Body height 171 cm Injection Wstr Work Phone: [facility] 10-02-2023 08:57-0400 Body mass index (BMI) [Ratio] 23.89 kg/m2 Injection Wstr Work Phone: [facility] 10-02-2023 08:57-0400 Body temperature 97.7 [degF] Injection Wstr Work Phone: [facility] 10-02-2023 08:57-0400 Body weight 69.85 kg Injection Wstr Work Phone: [facility] 10-02-2023 08:57-0400 Diastolic blood pressure 66 mm[Hg] Injection Wstr Work Phone: [facility] 10-02-2023 08:57-0400 Heart rate 74 /min Injection Wstr Work Phone: [facility] 10-02-2023 08:57-0400 SaO2% (BldA) [Mass fraction] 98 % Injection Wstr Work Phone: [facility] 10-02-2023 08:57-0400 Systolic blood pressure 131 mm[Hg] Injection Wstr Work Phone: [facility] 09-24-2023 09:12-0400 Body mass index (BMI) [Ratio] 24.12 kg/m2 Injection Wstr Work Phone: [facility] 09-24-2023 09:12-0400 Body temperature 97.3 [degF] Injection Wstr Work Phone: [facility] 09-24-2023 09:12-0400 Body weight 69.85 kg Injection Wstr Work Phone: [facility] 09-24-2023 09:12-0400 Diastolic blood pressure 65 mm[Hg] Injection Wstr Work Phone: [facility] 09-24-2023 09:12-0400 Heart rate 65 /min Injection Wstr Work Phone: [facility] 09-24-2023 09:12-0400 Respiratory rate 12 /min Injection Wstr Work Phone: [facility] 09-24-2023 09:12-0400 SaO2% (BldA) [Mass fraction] 97 % Injection Wstr Work Phone: [facility] 09-24-2023 09:12-0400 Systolic blood pressure 115 mm[Hg] Injection Wstr Work Phone: [facility] 08-27-2023 09:10-0400 Body mass index (BMI) [Ratio] 24.12 kg/m2 Injection Wstr Work Phone: [facility] 08-27-2023 09:10-0400 Body temperature 97.11 [degF] Injection Wstr Work Phone: [facility] 08-27-2023 09:10-0400 Body weight 69.85 kg Injection Wstr Work Phone: [facility] 08-27-2023 09:10-0400 Diastolic blood pressure 68 mm[Hg] Injection Wstr Work Phone: [facility] 08-27-2023 09:10-0400 Heart rate 82 /min Injection Wstr Work Phone: [facility] 08-27-2023 09:10-0400 Respiratory rate 12 /min Injection Wstr Work Phone: [facility] 08-27-2023 09:10-0400 SaO2% (BldA) [Mass fraction] 97 % Injection Wstr Work Phone: [facility] 08-27-2023 09:10-0400 Systolic blood pressure 106 mm[Hg] Injection Wstr Work Phone: [facility] 07-31-2023 09:07-0400 Body mass index (BMI) [Ratio] 24.28 kg/m2 Injection Wstr Work Phone: [facility] 07-31-2023 09:07-0400 Body temperature 98.01 [degF] Injection Wstr Work Phone: [facility] 07-31-2023 09:07-0400 Body weight 70.31 kg Injection Wstr Work Phone: [facility] 07-31-2023 09:07-0400 Diastolic blood pressure 69 mm[Hg] Injection Wstr Work Phone: [facility] 07-31-2023 09:07-0400 Heart rate 84 /min Injection Wstr Work Phone: [facility] 07-31-2023 09:07-0400 Respiratory rate 12 /min Injection Wstr Work Phone: [facility] 07-31-2023 09:07-0400 SaO2% (BldA) [Mass fraction] 98 % Injection Wstr Work Phone: [facility] 07-31-2023 09:07-0400 Systolic blood pressure 119 mm[Hg] Injection Wstr Work Phone: [facility] 06-11-2023 10:05-0500 Body weight 71.94 kg Catherine Podlogar COMMUNITY LIAISON OFFICER.DIRECTOR OF HEALTH CARE MARKETING Work Phone: [facility] 06-11-2023 10:05-0500 Diastolic blood pressure 62 mm[Hg] Catherine Podlogar COMMUNITY LIAISON OFFICER.DIRECTOR OF HEALTH CARE MARKETING Work Phone: [facility] 06-11-2023 10:05-0500 Heart rate 106 /min Catherine Podlogar COMMUNITY LIAISON OFFICER.DIRECTOR OF HEALTH CARE MARKETING Work Phone: [facility] 06-11-2023 10:05-0500 Respiratory rate 16 /min Catherine Podlogar COMMUNITY LIAISON OFFICER.DIRECTOR OF HEALTH CARE MARKETING Work Phone: [facility] 06-11-2023 10:05-0500 SaO2% (BldA) [Mass fraction] 96 % Catherine Podlogar COMMUNITY LIAISON OFFICER.DIRECTOR OF HEALTH CARE MARKETING Work Phone: [facility] 06-11-2023 10:05-0500 Systolic blood pressure 114 mm[Hg] Catherine Peraza COMMUNITY LIAISON OFFICER.DIRECTOR OF HEALTH CARE MARKETING Work Phone: [facility] 05-08-2023 09:19-0500 Body temperature 97.9 [degF] Injection Wstr Work Phone: [facility] 05-08-2023 09:19-0500 Body weight 72.58 kg Injection Wstr Work Phone: [facility] 05-08-2023 09:19-0500 Diastolic blood pressure 58 mm[Hg] Injection Wstr Work Phone: [facility] 05-08-2023 09:19-0500 Heart rate 74 /min Injection Wstr Work Phone: [facility] 05-08-2023 09:19-0500 Respiratory rate 12 /min Injection Wstr Work Phone: [facility] 05-08-2023 09:19-0500 SaO2% (BldA) [Mass fraction] 95 % Injection Wstr Work Phone: [facility] 05-08-2023 09:19-0500 Systolic blood pressure 102 mm[Hg] Injection Wstr Work Phone: [facility] 02-13-2023 10:26-0500 Diastolic blood pressure 66 mm[Hg] Injection Wstr Work Phone: [facility] 02-13-2023 10:26-0500 Heart rate 85 /min Injection Wstr Work Phone: [facility] 02-13-2023 10:26-0500 SaO2% (BldA) [Mass fraction] 98 % Injection Wstr Work Phone: [facility] 02-13-2023 10:26-0500 Systolic blood pressure 109 mm[Hg] Injection Wstr Work Phone: [facility] 12-19-2022 09:15-0400 Body temperature 98.1 [degF] Injection Wstr Work Phone: [facility] 12-19-2022 09:15-0400 Diastolic blood pressure 64 mm[Hg] Injection Wstr Work Phone: [facility] 12-19-2022 09:15-0400 Heart rate 78 /min Injection Wstr Work Phone: [facility] 12-19-2022 09:15-0400 Systolic blood pressure 121 mm[Hg] Injection Wstr Work Phone: [facility] 11-21-2022 09:37-0400 Body temperature 96.91 [degF] Injection Wstr Work Phone: [facility] 11-21-2022 09:37-0400 Body weight 68.95 kg Injection Wstr Work Phone: [facility] 11-21-2022 09:37-0400 Diastolic blood pressure 58 mm[Hg] Injection Wstr Work Phone: [facility] 11-21-2022 09:37-0400 Heart rate 78 /min Injection Wstr Work Phone: [facility] 11-21-2022 09:37-0400 Systolic blood pressure 99 mm[Hg] Injection Wstr Work Phone: [facility] 11-19-2022 13:18-0400 Body height 170.2 cm Derrek Samuel PA-C Work Phone: [facility] 11-19-2022 13:18-0400 Body temperature 97.39 [degF] Derrek Samuel PA-C Work Phone: [facility] 11-19-2022 13:18-0400 Body weight 69.22 kg Derrek [place] PA-C Work Phone: [facility] 11-19-2022 13:18-0400 Diastolic blood pressure 72 mm[Hg] Derrek Samuel PA-C Work Phone: [facility] 11-19-2022 13:18-0400 Heart rate 101 /min Derrek [place] PA-C Work Phone: [facility] 11-19-2022 13:18-0400 SaO2% (BldA) [Mass fraction] 100 % Derrek Baker PA-C Work Phone: [facility] 11-19-2022 13:18-0400 Systolic blood pressure 116 mm[Hg] Derrek YBARRA-C Work Phone: [facility] 10-24-2022 09:12-0400 Body temperature 96.8 [degF] Injection Wstr Work Phone: [facility] 10-24-2022 09:12-0400 Diastolic blood pressure 51 mm[Hg] Injection Wstr Work Phone: [facility] 10-24-2022 09:12-0400 Heart rate 66 /min Injection Wstr Work Phone: [facility] 10-24-2022 09:12-0400 Systolic blood pressure 99 mm[Hg] Injection Wstr Work Phone: [facility] 10-14-2022 09:15-0400 Body temperature 97.3 [degF] Injection Wstr Work Phone: [facility] 10-14-2022 09:15-0400 Body weight 68.49 kg Injection Wstr Work Phone: [facility] 10-14-2022 09:15-0400 Diastolic blood pressure 64 mm[Hg] Injection Wstr Work Phone: [facility] 10-14-2022 09:15-0400 Heart rate 75 /min Injection Wstr Work Phone: [facility] 10-14-2022 09:15-0400 Systolic blood pressure 104 mm[Hg] Injection Wstr Work Phone: [facility] 09-26-2022 09:49-0400 Body temperature 97.5 [degF] Injection Wstr Work Phone: [facility] 09-26-2022 09:49-0400 Body weight 70.31 kg Injection Wstr Work Phone: [facility] 09-26-2022 09:49-0400 Diastolic blood pressure 57 mm[Hg] Injection Wstr Work Phone: [facility] 09-26-2022 09:49-0400 Heart rate 80 /min Injection Wstr Work Phone: [facility] 09-26-2022 09:49-0400 Systolic blood pressure 108 mm[Hg] Injection Wstr Work Phone: [facility] 09-23-2022 13:53-0400 Body height [address] PERFECTO CRAWFORD MD [facility] 09-23-2022 13:53-0400 Body temperature 97.7 [degF] DR PERFECTO CRAWFORD MD [facility] 09-23-2022 13:53-0400 Body weight [address] PERFECTO CRAWFORD MD [facility] 09-23-2022 13:53-0400 Diastolic Blood Pressure Non-Invasive [address] PERFECTO CRAWFORD MD [facility] 09-23-2022 13:53-0400 Heart rate 100 /min DR PERFECTO CRAWFORD MD [facility] 09-23-2022 13:53-0400 Respiratory rate 18 /min DR PERFECTO CRAWFORD MD [facility] 09-23-2022 13:53-0400 Systolic Blood Pressure Non-Invasive [address] PERFECTO CRAWFORD MD [facility] 08-16-2022 11:01-0400 Body temperature 97.2 [degF] Sanjeev Aranda COMMUNITY LIAISON OFFICER.DIRECTOR OF HEALTH CARE MARKETING Work Phone: [facility] 08-16-2022 11:01-0400 Body weight 69.63 kg Sanjeev Aranda COMMUNITY LIAISON OFFICER.DIRECTOR OF HEALTH CARE MARKETING Work Phone: [facility] 08-16-2022 11:01-0400 Diastolic blood pressure 76 mm[Hg] Sanjeev Aranda COMMUNITY LIAISON OFFICER.DIRECTOR OF HEALTH CARE MARKETING Work Phone: [facility] 08-16-2022 11:01-0400 Heart rate 84 /min Sanjeev Aranda COMMUNITY LIAISON OFFICER.DIRECTOR OF HEALTH CARE MARKETING Work Phone: [facility] 08-16-2022 11:01-0400 Systolic blood pressure 104 mm[Hg] Sanjeev Aranda COMMUNITY LIAISON OFFICER.DIRECTOR OF HEALTH CARE MARKETING Work Phone: [facility] 04-26-2022 11:07-0500 Body height 170.2 cm Sp Mckeon DO Work Phone: [facility] 04-26-2022 11:07-0500 Body weight 69.4 kg Sp Mckeon DO Work Phone: [facility] 04-26-2022 11:07-0500 Respiratory rate 18 /min Sp Mckeon DO Work Phone: [facility] 02-27-2022 10:02-0500 Diastolic blood pressure 61 mm[Hg] Lyn Mcgowan MD Work Phone: [facility] 02-27-2022 10:02-0500 Heart rate 64 /min Lyn Mcgowan MD Work Phone: [facility] 02-27-2022 10:02-0500 Respiratory rate 16 /min Lyn Mcgoawn MD Work Phone: [facility] 02-27-2022 10:02-0500 SaO2% (BldA) [Mass fraction] 94 % Lyn Mcgowan MD Work Phone: [facility] 02-27-2022 10:02-0500 Systolic blood pressure 102 mm[Hg] Lyn Mcgowan MD Work Phone: [facility] 02-27-2022 08:45-0500 Body temperature 96.21 [degF] Lyn Mcgowan MD Work Phone: [facility] 02-27-2022 08:45-0500 Body weight 71 kg Lyn Mcgowan MD Work Phone: [facility] 02-14-2022 10:33-0500 Body height 170.3 cm Lillian Clemente MD Work Phone: [facility] 02-14-2022 10:33-0500 Body temperature 97 [degF] Lillian Clemente MD Work Phone: [facility] 02-14-2022 10:33-0500 Body weight 70.99 kg Lillian Clemente MD Work Phone: [facility] 02-14-2022 10:33-0500 Diastolic blood pressure 63 mm[Hg] Lillian Clemente MD Work Phone: [facility] 02-14-2022 10:33-0500 Heart rate 96 /min Lillian Clemente MD Work Phone: [facility] 02-14-2022 10:33-0500 SaO2% (BldA) [Mass fraction] 98 % Lillian Clemente MD Work Phone: [facility] 02-14-2022 10:33-0500 Systolic blood pressure 113 mm[Hg] Lillian Clemente MD Work Phone: [facility] 11-13-2021 09:01-0400 Body weight 70.67 kg Arsalan Ocamop MD Work Phone: [facility] 11-13-2021 09:01-0400 Diastolic blood pressure 62 mm[Hg] Arsalan Ocampo MD Work Phone: [facility] 11-13-2021 09:01-0400 Heart rate 78 /min Arsalan Ocampo MD Work Phone: [facility] 11-13-2021 09:01-0400 Respiratory rate 16 /min Arsalan Ocampo MD Work Phone: [facility] 11-13-2021 09:01-0400 SaO2% (BldA) [Mass fraction] 98 % Arsalan Ocampo MD Work Phone: [facility] 11-13-2021 09:01-0400 Systolic blood pressure 110 mm[Hg] Arsalan Ocampo MD Work Phone: [facility] 09-05-2021 10:11-0400 Body height 172.7 cm Sp Mckeon DO Work Phone: [facility] 09-05-2021 10:11-0400 Body weight 69.4 kg Sp Mckeon DO Work Phone: [facility] 09-05-2021 10:11-0400 Diastolic blood pressure 60 mm[Hg] Sp Mckeon DO Work Phone: [facility] 09-05-2021 10:11-0400 Systolic blood pressure 113 mm[Hg] Sp Mckeon DO Work Phone: [facility] 09-04-2021 12:55-0400 Body height 172.7 cm Jazlyn Lombardi III, MD Work Phone: [facility] 09-04-2021 12:55-0400 Body mass index (BMI) [Ratio] 23.14 kg/m2 Jazlyn Lombardi III, MD Work Phone: [facility] 09-04-2021 12:55-0400 Body temperature 98.4 [degF] Jazlyn Lombardi III, MD Work Phone: [facility] 09-04-2021 12:55-0400 Body weight 69.04 kg Jazlyn Lombardi III, MD Work Phone: [facility] 09-04-2021 12:55-0400 Diastolic blood pressure 67 mm[Hg] Jazlyn Lombardi III, MD Work Phone: [facility] 09-04-2021 12:55-0400 Heart rate 98 /min Jazlyn Lombardi III, MD Work Phone: [facility] 09-04-2021 12:55-0400 Respiratory rate 16 /min Jazlyn Lombardi III, MD Work Phone: [facility] 09-04-2021 12:55-0400 SaO2% (BldA) [Mass fraction] 95 % Jazlyn Lombardi III, MD Work Phone: [facility] 09-04-2021 12:55-0400 Systolic blood pressure 126 mm[Hg] Jazlyn Lombardi III, MD Work Phone: [facility] 08-28-2021 11:37-0400 Body temperature 97.7 [degF] Lillian Clemente MD Work Phone: [facility] 08-28-2021 11:37-0400 Body weight 69.63 kg Lillian Clemente MD Work Phone: [facility] 08-28-2021 11:37-0400 Diastolic blood pressure 55 mm[Hg] Lillian Clemente MD Work Phone: [facility] 08-28-2021 11:37-0400 Heart rate 95 /min Lillian Clemente MD Work Phone: [facility] 08-28-2021 11:37-0400 Systolic blood pressure 100 mm[Hg] Lillian Clemente MD Work Phone: [facility] Encounters Encounter Date Encounter Type Care Provider Facility Start: 09-15-2024 End: 09-15-2024 ambulatory ARSALAN OCAMPO Facility:[facility] Start: 09-10-2024 End: 09-10-2024 ambulatory Injection Ryne [facility] Work Phone: Hematology/Oncology Comment on above: Prostate cancer (HCC ) (Primary Dx) Start: 09-10-2024 End: 09-10-2024 ambulatory SANJEEV ARANDA Facility:[facility] Start: 09-08-2024 End: 09-08-2024 ambulatory Injection Ryne [facility] Wstr Work Phone: Hematology/Oncology Comment on above: Prostate cancer (HCC ) (Primary Dx); 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) Start: 08-27-2024 End: 08-27-2024 ambulatory ARSALAN OCAMPO Facility:[facility] Start: 08-26-2024 End: 08-26-2024 ambulatory ARSALAN OCAMPO Facility:[facility] Start: 08-20-2024 End: 08-20-2024 ambulatory Dereje Herring MD Work Phone: Hematology/Oncology Comment on above: discontinued Aranesp and Xgeva Start: 08-11-2024 End: 08-11-2024 Patient encounter procedure Dereje Herring MD Work Phone: Hematology/Oncology Start: 08-11-2024 End: 08-11-2024 ambulatory [facility]jection [facility] Work Phone: Hematology/Oncology Comment on above: Prostate cancer (HCC ) (Primary Dx); 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) Prostate cancer (HCC ) (Primary Dx); 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); Prostate cancer metastatic to bone (HCC) Start: 08-09-2024 End: 08-09-2024 Patient encounter procedure Candace Guerra APRN.DIRECTOR OF HEALTH CARE MARKETING Work Phone: Cardiology Comment on above: Vitamin D deficiency (Primary Dx); Iron deficiency; SOB (shortness of breath); Mixed hyperlipidemia Start: 08-09-2024 End: 08-09-2024 ambulatory CANDACE GUERRA Facility:[facility] Start: 07-14-2024 End: 07-14-2024 ambulatory Injection Ryne [facility] Work Phone: Hematology/Oncology Comment on above: 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); Prostate cancer (HCC) Start: 07-07-2024 End: 07-07-2024 Telephone encounter Suresh Hodges MD Work Phone: Radiation Oncology Start: 07-07-2024 End: 07-07-2024 ambulatory ARSALAN OCAMPO Facility:[facility] Start: 07-07-2024 End: 07-07-2024 Nursing evaluation of patient and report Derm Surgery Nurse Work Phone: Dermatology Comment on above: 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) Start: 06-24-2024 End: 06-24-2024 ambulatory SURESH HODGES Facility:[facility] Start: 06-24-2024 End: 06-24-2024 Patient encounter procedure Suresh Hodges MD Work Phone: Radiation Oncology Comment on above: Squamous cell carcin joseph of scalp Start: 06-17-2024 End: 06-17-2024 Telephone encounter Suresh Hodges MD Work Phone: Radiation Oncology Start: 06-17-2024 End: 06-17-2024 ambulatory RICHIE DEJESUS Facility:[facility] Start: 06-17-2024 End: 06-17-2024 Patient encounter procedure Madelaine Bronson MD Work Phone: Dermatology Comment on above: 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) Start: 06-16-2024 End: 06-16-2024 ambulatory Injection Ryne [facility] Work Phone: Hematology/Oncology Comment on above: Prostate cancer (HCC ) (Primary Dx); 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) Start: 05-18-2024 End: 05-18-2024 Refill Dereje Herring MD Work Phone: Hematology/Oncology Comment on above: Refill Request Start: 05-17-2024 End: 05-18-2024 ambulatory Catherine Peraza APRN.DIRECTOR OF HEALTH CARE MARKETING Work Phone: [facility] Comment on above: motion sickness Start: 05-13-2024 End: 05-13-2024 Refill Dereje Herring MD Work Phone: Hematology/Oncology Comment on above: Refill Request Start: 05-12-2024 End: 05-12-2024 ambulatory Injection Ryne [facility] Work Phone: Hematology/Oncology Comment on above: 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); Prostate cancer (HCC) Start: 2024 End: 2024 Telephone encounter Richie Dejesus MD Work Phone: Dermatology Comment on above: SKIN CANCER Start: 05-04-2024 End: 05-04-2024 ambulatory ARSALAN OCAMPO Facility:[facility] Start: 05-04-2024 End: 05-04-2024 Patient encounter procedure Richie Dejesus MD Work Phone: Dermatology Comment on above: Skin neoplasm (Prima ry Dx) Start: 04-14-2024 End: 04-14-2024 ambulatory Injection Ryen [facility] Work Phone: Hematology/Oncology Comment on above: Prostate cancer (HCC ) (Primary Dx); 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) Start: 04-05-2024 End: 04-14-2024 Telephone encounter Gualberto Mcmahon MD Work Phone: Pain Management Comment on above: Appointment (Appoint ment cancelled) Start: 04-01-2024 End: 04-01-2024 ambulatory Endy Curran PT [facility] [place] [place] Comment on above: Left hip pain (Prima ry Dx); Radiculopathy, lumbar region; Decreased ROM of lumbar spine; Weakness of trunk musculature Start: 03-30-2024 End: 03-30-2024 Refill Dereje Herring MD Work Phone: Hematology/Oncology Comment on above: Refill Request Start: 03-24-2024 End: 03-24-2024 ambulatory Endy Curran PT [facility] [place] Comment on above: Left hip pain (Prima ry Dx); Radiculopathy, lumbar region; Decreased ROM of lumbar spine; Weakness of trunk musculature Start: 03-19-2024 End: 03-19-2024 ambulatory ARSALAN OCAMPO Facility:[facility] Start: 03-19-2024 End: 03-19-2024 Patient encounter procedure Richie Dejesus MD Work Phone: Dermatology Comment on above: Actinic keratosis (P rimary Dx) Start: 03-17-2024 End: 03-17-2024 ambulatory Injection Ryne [facility] Work Phone: Hematology/Oncology Comment on above: Prostate cancer (HCC ) (Primary Dx); 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) Start: 03-16-2024 End: 03-16-2024 ambulatory Juliano Magaña PT [facility] [employer] [facility] [place] Comment on above: Left hip pain (Prima ry Dx); Radiculopathy, lumbar region; Decreased ROM of lumbar spine; Weakness of trunk musculature Start: 03-15-2024 End: 03-15-2024 Refill Arsalan Ocampo MD Work Phone: [facility] Comment on above: Refill Request Start: 03-10-2024 End: 03-10-2024 ambulatory ARSALAN OCAMPO Facility:[facility] Start: 03-10-2024 End: 03-10-2024 Patient encounter procedure Catherine Peraza APRN.DIRECTOR OF HEALTH CARE MARKETING Work Phone: [facility] Comment on above: Medicare annual well ness visit, subsequent (Primary Dx); Screening for depression Start: 03-09-2024 End: 03-09-2024 ambulatory Jose David Cedeno 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 [facility] [place] Comment on above: Left hip pain (Prima ry Dx); Radiculopathy, lumbar region; Decreased ROM of lumbar spine; Weakness of trunk musculature Start: 03-02-2024 End: 03-02-2024 ambulatory Juliano Magaña PT [facility] [employer] [facility] [place] Comment on above: Left hip pain (Prima ry Dx); Radiculopathy, lumbar region; Decreased ROM of lumbar spine; Weakness of trunk musculature Start: 02-27-2024 End: 02-27-2024 ambulatory 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 [facility] [place] Comment on above: Left hip pain (Prima ry Dx); Radiculopathy, lumbar region; Decreased ROM of lumbar spine; Weakness of trunk musculature Start: 02-25-2024 End: 03-11-2024 Telephone encounter Vicente Roach MD Work Phone: Orthopaedics Comment on above: Patient Question Start: 02-25-2024 End: 02-25-2024 ambulatory Endy Curran PT [facility] [place] Comment on above: Left hip pain (Prima ry Dx); Radiculopathy, lumbar region; Decreased ROM of lumbar spine; Weakness of trunk musculature Start: 02-23-2024 End: 02-23-2024 ambulatory ARSALAN OCAMPO Facility:[facility] Start: 02-23-2024 End: 02-23-2024 Patient encounter procedure Vicente Roach MD Work Phone: Orthopaedics Comment on above: Osteoarthritis of sp ine with radiculopathy, lumbar region (Primary Dx); Chronic left hip pain; Right hip pain Start: 02-20-2024 End: 02-20-2024 ambulatory Jose David Tracee Cedeno 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 [facility] [place] Comment on above: Left hip pain (Prima ry Dx); Radiculopathy, lumbar region; Decreased ROM of lumbar spine; Weakness of trunk musculature Start: 02-18-2024 End: 02-18-2024 ambulatory 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 [facility] [place] Comment on above: Left hip pain (Prima ry Dx); Radiculopathy, lumbar region; Decreased ROM of lumbar spine; Weakness of trunk musculature Start: 02-18-2024 End: 02-18-2024 ambulatory Injection Ryne [facility] Work Phone: Hematology/Oncology Comment on above: 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); Prostate cancer (HCC) Start: 02-16-2024 End: 02-16-2024 ambulatory Derrek YBARRA Facility:[facility] Start: 02-16-2024 End: 02-16-2024 ambulatory López Ocampo Facility:[facility] Start: 02-13-2024 End: 02-13-2024 ambulatory 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 [facility] [place] Comment on above: Left hip pain (Prima ry Dx); Radiculopathy, lumbar region; Decreased ROM of lumbar spine; Weakness of trunk musculature Start: 02-11-2024 End: 02-11-2024 ambulatory 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 [facility] [place] Comment on above: Left hip pain (Prima ry Dx); Radiculopathy, lumbar region; Decreased ROM of lumbar spine; Weakness of trunk musculature Start: 02-10-2024 End: 02-10-2024 Refill Dereje Herring MD Work Phone: Hematology/Oncology Comment on above: Refill Request Start: 02-09-2024 End: 02-09-2024 ambulatory Arsalan Ocampo MD Work Phone: [facility] [place] Comment on above: medical history Start: 02-05-2024 End: 02-05-2024 Telephone encounter Arsalan Ocampo MD Work Phone: [facility] Comment on above: Insurance Authorizat ion (cyclobenzaprine) Start: 02-05-2024 End: 02-06-2024 ambulatory López Ocampo Facility:[facility] Start: 02-03-2024 End: 02-03-2024 ambulatory ARSALAN Ag VIJAYA Facility:[facility] Start: 02-03-2024 End: 02-03-2024 Telephone encounter Arsalan Ocampo MD Work Phone: [facility] Comment on above: Results Start: 02-03-2024 End: 02-03-2024 Subsequent hospital visit by physician [facility] Work Phone: Radiology Comment on above: Left inguinal pain [ R10.32] Start: 02-03-2024 End: 02-03-2024 Patient encounter procedure Arsalan Ocampo MD Work Phone: [facility] Comment on above: Left inguinal pain ( Primary Dx); Spinal stenosis of lumbar region, unspecified whether neurogenic claudication present Start: 02-03-2024 End: 02-03-2024 ambulatory ARSALAN OCAMPO Facility:[facility] Start: 01-29-2024 End: 01-29-2024 ambulatory Endy [facility] Comment on above: Left hip pain (Prima ry Dx); Radiculopathy, lumbar region; Decreased ROM of lumbar spine; Weakness of trunk musculature Start: 01-23-2024 End: 01-23-2024 Telephone encounter Karin ANTHONY Hematology/Oncology Comment on above: Social Work Services Start: 01-21-2024 End: 01-21-2024 Patient encounter procedure Dereje Herring MD Work Phone: Hematology/Oncology Start: 01-21-2024 End: 01-21-2024 ambulatory Injection Ryne [facility] Work Phone: Hematology/Oncology Comment on above: 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); Prostate cancer (HCC) Right hip pain (Prim monica Dx); Prostate cancer (HCC); 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) Start: 12-30-2023 End: 12-30-2023 Telephone encounter Catherine Peraza APRN.DIRECTOR OF HEALTH CARE MARKETING Work Phone: [facility] Comment on above: Results; hip xray re sults Start: 12-24-2023 End: 12-24-2023 Subsequent hospital visit by physician Xr [facility] Nikole Work Phone: Radiology Comment on above: Left hip pain [M25.5 52] Start: 12-24-2023 End: 12-24-2023 Patient encounter procedure Catherine Peraza APRN.DIRECTOR OF HEALTH CARE MARKETING Work Phone: [facility] [place] Comment on above: Left hip pain (Prima ry Dx) Start: 12-24-2023 End: 12-24-2023 ambulatory ARSALAN OCAMPO Facility:[facility] Start: 12-17-2023 End: 12-17-2023 ambulatory Injection Ryne [facility] Work Phone: Hematology/Oncology Comment on above: Prostate cancer (HCC ) (Primary Dx); 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) Start: 12-11-2023 End: 12-12-2023 Telephone encounter Tee Ellis Work Phone: Hematology/Oncology Comment on above: Results Start: 12-11-2023 End: 12-11-2023 Emergency department patient visit López Ocampo Facility:[facility] Start: 12-10-2023 End: 12-10-2023 ambulatory ARSALAN OCAMPO Facility:[facility] Start: 12-10-2023 End: 12-10-2023 ambulatory ARSALAN OCAMPO Facility:[facility] Start: 12-10-2023 End: 12-10-2023 Subsequent hospital visit by physician Ct Prep [facility] Ws Cat Scan Comment on above: 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, C79.51] Start: 12-04-2023 End: 12-05-2023 ambulatory Dereje Herring MD Work Phone: Hematology/Oncology Comment on above: recurring back pain Start: 12-02-2023 End: 12-02-2023 ambulatory ARSALAN OCAMPO Facility:[facility] Start: 12-02-2023 End: 12-02-2023 Patient encounter procedure Richie Dejesus MD Work Phone: Dermatology Comment on above: Xerosis cutis (Prima ry Dx); Actinic keratosis; Seborrheic keratosis; Lentigines; Cabrera angioma; Multiple benign nevi; Personal history of skin cancer Start: 11-19-2023 End: 11-19-2023 ambulatory Injection Ryne [facility] Work Phone: Hematology/Oncology Comment on above: 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); Prostate cancer (HCC) Start: 11-17-2023 Refill Arsalan Castro MD Work Phone: [facility] Comment on above: Refill Request Start: 11-12-2023 ambulatory ARSALAN Puga acility:[facility] Start: 11-12-2023 End: 11-12-2023 Subsequent hospital visit by physician [facility] Work Phone: Cardiology Lab Comment on above: SOB (shortness of br eath) [R06.02] Start: 11-12-2023 ambulatory ARSALAN Puga acility:[facility] Start: 11-12-2023 End: 11-12-2023 Subsequent hospital visit by physician [facility] 2 Work Phone: Molecular Imaging Comment on above: SOB (shortness of br eath) [R06.02] Start: 11-11-2023 Refill Gualberto Oliveira Work Phone: Hematology/Oncology Comment on above: Refill Request Start: 11-11-2023 Telephone encounter Sahara arriaga RN Cardiology Lab Comment on above: Reminder Call Start: 10-22-2023 End: 10-22-2023 Patient encounter procedure Dereje Herring MD Work Phone: Hematology/Oncology Start: 10-22-2023 End: 10-22-2023 ambulatory Dereje Herring MD Work Phone: Hematology/Oncology Comment on above: 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); 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) Prostate cancer (HCC ) (Primary Dx); 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) Start: 10-16-2023 End: 10-16-2023 Patient encounter procedure Dorcas Ryan Champagne DO Work Phone: Cardiology Comment on above: SOB (shortness of br eath) (Primary Dx); Abnormal ECG; Chest pain, unspecified type; Mixed hyperlipidemia Start: 10-16-2023 End: 10-16-2023 ambulatory ARSALAN OCAMPO Facility:[facility] Start: 10-16-2023 Telephone encounter Dorcas Champagne DO Work Phone: Cardiology Comment on above: Appointment Start: 10-03-2023 Refill Dereje gross MD Work Phone: Hematology/Oncology Comment on above: Refill Request Start: 10-02-2023 End: 10-02-2023 ambulatory Injection Ryne [facility] Work Phone: Hematology/Oncology Comment on above: Prostate cancer (HCC ) (Primary Dx) Start: 09-24-2023 End: 09-24-2023 ambulatory Injection Ryne [facility] Work Phone: Hematology/Oncology Comment on above: Prostate cancer (HCC ) (Primary Dx); 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) Start: 09-10-2023 Refill Catherine Peraza APRN.CNP Work Phone: [facility] [place] Comment on above: Refill Request Start: 08-27-2023 Telephone encounter Dereje dallas MD Work Phone: Hematology/Oncology Comment on above: Patient Update (richar stephen) Start: 08-27-2023 End: 08-27-2023 ambulatory Injection Ryne [facility] Work Phone: Hematology/Oncology Comment on above: Prostate cancer (HCC ) (Primary Dx); 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) Start: 08-13-2023 Refill Sanjeev tinajero APRN.DIRECTOR OF HEALTH CARE MARKETING Work Phone: Hematology/Oncology Comment on above: Refill Request Start: 08-04-2023 Telephone encounter Juanito Ybarra i, MD Work Phone: Cardiology Comment on above: Appointment Start: 07-31-2023 End: 07-31-2023 ambulatory Injection Ryne [facility] Work Phone: Hematology/Oncology Comment on above: 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); Prostate cancer (HCC) Start: 07-30-2023 Orders Only Dereje gross MD Work Phone: Hematology/Oncology Start: 06-17-2023 End: 06-17-2023 Refill Arsalan Ocampo MD Work Phone: Family [facility] Comment on above: Refill Request Results SOB (shortness of br eath) [R06.02] Start: 06-16-2023 Telephone encounter Sahara arriaga RN Cardiology Lab Comment on above: Reminder Call Start: 06-11-2023 Telephone encounter López Ocampo MD Work Phone: Family [facility] Comment on above: Results Start: 06-11-2023 End: 06-11-2023 Subsequent hospital visit by physician Xr [facility] Nikole Work Phone: Radiology Comment on above: SOB (shortness of br eath) [R06.02] Start: 06-11-2023 End: 06-11-2023 Patient encounter procedure Catherine Peraza APRN.DIRECTOR OF HEALTH CARE MARKETING Work Phone: Family [facility] Comment on above: SOB (shortness of br eath) (Primary Dx); Chest pain, unspecified type; Acute left-sided low back pain, unspecified whether sciatica present Start: 06-06-2023 Telephone encounter Dereje dallas MD Work Phone: Hematology/Oncology Comment on above: Patient Question Start: 06-05-2023 End: 06-05-2023 ambulatory Injection Ryne [facility] Work Phone: Hematology/Oncology Comment on above: Prostate cancer (HCC ) (Primary Dx); 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) Start: 05-16-2023 Refill Sanjeev Carpente r COMMUNITY LIAISON OFFICER.DIRECTOR OF HEALTH CARE MARKETING Work Phone: Hematology/Oncology Comment on above: Refill Request Start: 05-08-2023 End: 05-08-2023 ambulatory Injection Ryne [facility] Work Phone: Hematology/Oncology Comment on above: Prostate cancer (HCC ) (Primary Dx) Start: 03-17-2023 ambulatory Arsalan Ocampo MD Work Phone: Family [facility] [place] Comment on above: blood test results Start: 03-17-2023 Telephone encounter López Ocampo MD Work Phone: [facility] [place] Comment on above: Results Start: 03-13-2023 Telephone encounter Natalya gastelum RN Work Phone: Hematology/Oncology Comment on above: Patient Update (Richar stephen order) Start: 03-13-2023 End: 03-13-2023 ambulatory Injection Ryne [facility] Work Phone: Hematology/Oncology Comment on above: Prostate cancer (HCC ) (Primary Dx) Start: 02-18-2023 Refill Sanjeev Carpente r COMMUNITY LIAISON OFFICER.DIRECTOR OF HEALTH CARE MARKETING Work Phone: Hematology/Oncology Comment on above: Refill Request Start: 02-13-2023 End: 02-13-2023 ambulatory Injection Ryne [facility] Work Phone: Hematology/Oncology Comment on above: Prostate cancer (HCC ) (Primary Dx) Start: 01-21-2023 ambulatory Arsalan Ocampo MD Work Phone: Family [facility] [place] Comment on above: vaccinations on Mych art Start: 01-16-2023 End: 01-16-2023 ambulatory Injection Ryne [facility] Work Phone: Hematology/Oncology Comment on above: Prostate cancer (HCC ) (Primary Dx) Start: 01-15-2023 ambulatory Sanjeev Carpente r COMMUNITY LIAISON OFFICER.DIRECTOR OF HEALTH CARE MARKETING Work Phone: Hematology/Oncology Comment on above: calcium supplement Start: 01-14-2023 Refill Dereje gross MD Work Phone: Hematology/Oncology Comment on above: Refill Request Start: 12-19-2022 End: 12-19-2022 ambulatory Injection Ryne [facility] Work Phone: Hematology/Oncology Comment on above: Prostate cancer (HCC ) (Primary Dx) Start: 11-27-2022 End: 11-27-2022 Patient encounter procedure Richie Dejesus MD Work Phone: Dermatology Comment on above: Seborrheic keratosis (Primary Dx); Cabrera angioma; Lentigines; Multiple benign nevi; Actinic keratosis; Personal history of skin cancer; Senile purpura (HCC) Start: 11-21-2022 End: 11-21-2022 ambulatory Injection Ryne [facility] Work Phone: Hematology/Oncology Comment on above: Prostate cancer (HCC ) (Primary Dx) Start: 11-20-2022 Refill Sanjeev tinajero APRN.CNP Work Phone: Hematology/Oncology Comment on above: Refill Request Start: 11-19-2022 End: 11-19-2022 Patient encounter procedure Derrek Baker PA-C Work Phone: General Surgery Comment on above: Hemorrhoids, unspeci fied hemorrhoid type (Primary Dx); Perianal cyst Start: 10-24-2022 End: 10-24-2022 ambulatory Injection Ryne [facility] Work Phone: Hematology/Oncology Comment on above: Prostate cancer (HCC ) (Primary Dx) Start: 10-14-2022 End: 10-14-2022 ambulatory Injection Ryne [facility] Work Phone: Hematology/Oncology Comment on above: Prostate cancer (HCC ) (Primary Dx) Start: 09-30-2022 ambulatory Arsalan Ocampo MD Work Phone: [facility] Comment on above: Tetanus (Tdap) shot Start: 09-26-2022 End: 09-26-2022 ambulatory Injection Ryne [facility] Work Phone: Hematology/Oncology Comment on above: Prostate cancer (HCC ) (Primary Dx) Start: 09-23-2022 End: 09-23-2022 Emergency department patient visit ARSALAN OCAMPO MD Facility:[facility] Start: 09-23-2022 End: 09-23-2022 Emergency department patient visit DR PERFECTO CRAWFORD MD [facility] Start: 08-19-2022 Telephone encounter Sanjeev cruz COMMUNITY LIAISON OFFICER.DIRECTOR OF HEALTH CARE MARKETING Work Phone: Hematology/Oncology Comment on above: Lab Orders Start: 08-16-2022 End: 08-16-2022 ambulatory Sanjeev Aranda COMMUNITY LIAISON OFFICER.DIRECTOR OF HEALTH CARE MARKETING Work Phone: Hematology/Oncology Comment on above: 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); 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) Start: 08-16-2022 End: 08-16-2022 Patient encounter procedure Sanjeev Aranda COMMUNITY LIAISON OFFICER.DIRECTOR OF HEALTH CARE MARKETING Work Phone: [facility] Start: 08-12-2022 Refill Gualberto Oliveira Work Phone: Hematology/Oncology Comment on above: Refill Request; Refi ll Request Start: 08-01-2022 End: 08-01-2022 [facility] of [facility] Work [facility]: [facility] Comment on above: Prostate cancer (HCC ) (Primary Dx) Start: 05-30-2022 End: 05-30-2022 Nursing evaluation of patient and report Nurse [facility] Work Phone: Urology Comment on above: Prostate cancer (HCC ) (Primary Dx) Start: 05-17-2022 End: 05-17-2022 Patient encounter procedure Richie Dejesus MD Work Phone: Dermatology Comment on above: Actinic keratosis (P rimary Dx) Start: 05-08-2022 Telephone encounter Odalis farrar [facility] Work Phone: Genetic Healthcare Comment on above: Results (Genetic soha t results - negative) Start: 04-26-2022 End: 04-26-2022 ambulatory SP MCKEON Facility:[facility] Start: 04-26-2022 End: 04-26-2022 Patient encounter procedure Sp Mckeon DO Work Phone: [facility] Comment on above: Malignant neoplasm o f prostate (HCC) (Primary Dx); Bone metastasis (HCC) Start: 04-23-2022 Get Medical Advice Lillian fernandez MD Work Phone: Hematology/Oncology Comment on above: reply to Arina about r efill Start: 04-17-2022 Refill Lillian Clemente MD Work Phone: Hematology/Oncology Comment on above: Refill Request Start: 03-21-2022 End: 03-21-2022 Nursing evaluation of patient and report Nurse [facility] Work Phone: Urology Comment on above: Prostate cancer (HCC ) (Primary Dx) Start: 03-08-2022 End: 03-08-2022 ambulatory Derrek Baker PA-C Work Phone: General Surgery Comment on above: Chronic superficial gastritis without bleeding (Primary Dx); Gastroesophageal reflux disease with esophagitis without hemorrhage; Family history of colon cancer Start: 03-08-2022 End: 03-08-2022 Telemedicine consultation with patient Derrek Baker PA-C Work Phone: [facility] Start: 03-06-2022 Telephone encounter López Ocampo MD Work Phone: Family [facility] [place] Comment on above: Results Start: 02-27-2022 End: 02-27-2022 Subsequent hospital visit by physician Lyn Mcgowan MD Work Phone: Ambulatory Surgery Comment on above: History of colon deidre yps [Z86.010] Start: 02-21-2022 End: 02-21-2022 Nursing evaluation of patient and report Nurse [facility] Work Phone: Urology Comment on above: Prostate cancer (HCC ) (Primary Dx) Start: 02-14-2022 End: 02-14-2022 ambulatory Lillian Clemente MD Work Phone: Hematology/Oncology Comment on above: 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); 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); Bone metastasis (HCC); Family history of prostate cancer in father Start: 02-14-2022 End: 02-14-2022 Patient encounter procedure Lillian Clemente MD Work Phone: [facility] Start: 01-22-2022 ambulatory Arsalan Ocampo MD Work Phone: [facility] Comment on above: Flu Shot Start: 01-19-2022 Refill Lillian Clemente MD Work Phone: Hematology/Oncology Comment on above: Refill Request Start: 01-02-2022 Refill Lillian Clemente MD Work Phone: Hematology/Oncology Comment on above: Refill Request Start: 12-13-2021 End: 12-13-2021 Nursing evaluation of patient and report Nurse [facility] Work Phone: Urology Comment on above: Malignant neoplasm o f prostate (HCC) (Primary Dx); Prostate cancer (HCC) Start: 11-23-2021 End: 11-23-2021 Patient encounter procedure Richie Dejesus MD Work Phone: Dermatology Comment on above: Notalgia paresthetic a (Primary Dx); Actinic keratosis; Seborrheic keratosis; Cabrera angioma; Lentigines; Multiple benign nevi; Personal history of skin cancer Start: 11-15-2021 End: 11-15-2021 Nursing evaluation of patient and report Nurse [facility] Work Phone: Urology Comment on above: Prostate cancer (HCC ) (Primary Dx) Start: 11-13-2021 End: 11-13-2021 Patient encounter procedure Arsalan Ocampo MD Work Phone: [facility] Comment on above: Prostate cancer (HCC ) (Primary Dx); Bone metastasis (HCC); Benign prostatic hyperplasia, unspecified whether lower urinary tract symptoms present; 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); Gastroesophageal reflux disease, unspecified whether esophagitis present; History of skin cancer; Screening for colon cancer Start: 10-11-2021 End: 10-11-2021 Nursing evaluation of patient and report Nurse [facility] Work Phone: Urology Comment on above: Prostate cancer (HCC ) Start: 10-05-2021 ambulatory Sp braden DO Work Phone: Urology Comment on above: Billing Number Start: 10-05-2021 E-mail encounter chacho braden caregiver Sp Mckeon DO Work Phone: [facility] Start: 09-05-2021 End: 09-05-2021 ambulatory SP MCKEON Facility:[facility] Start: 09-05-2021 End: 09-05-2021 Patient encounter procedure Sp Mckeon DO Work Phone: [facility] Comment on above: BPH with elevated PS A Start: 09-04-2021 ambulatory Jazlyn LOMBARDI III Facili ty:[facility] Start: 09-04-2021 End: 09-05-2021 Office outpatient new 60 minutes Jazlyn Lombardi MD Work Phone: Division of Medical Oncology at [facility] Comment on above: Prostate cancer (Jessica sherri Dx) Start: 08-29-2021 Telephone encounter Ellen Cabral Hematology/Oncology Comment on above: Social Work Services Start: 08-28-2021 End: 08-28-2021 ambulatory Lillian Clemente MD Work Phone: Hematology/Oncology Comment on above: 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); Prostate cancer metastatic to bone (HCC); Bone metastasis (HCC) Start: 08-28-2021 End: 08-28-2021 Patient encounter procedure Lillian Clemente MD Work Phone: [facility] Start: 08-24-2021 End: 08-24-2021 Subsequent hospital visit by physician [facility] Work Phone: Nuclear Medicine Comment on above: 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, C79.51] Start: 08-24-2021 End: 08-24-2021 Subsequent hospital visit by physician Bashir Grijalva [facility] Work Phone: Nuclear Medicine Start: 08-16-2021 End: 08-16-2021 Nursing evaluation of patient and report Nurse [facility] Work Phone: Urology Comment on above: Prostate cancer (HCC ) (Primary Dx) Start: 07-25-2021 Refill Luther horner MD Work Phone: [facility] Comment on above: Refill Request Start: 07-23-2021 Telephone encounter Natalya gastelum RN Work Phone: Hematology/Oncology Comment on above: Opened In Error Refill Request Start: 07-19-2021 End: 07-19-2021 Nursing evaluation of patient and report Nurse [facility] Work Phone: Urology Comment on above: Prostate cancer (HCC ) Start: 07-13-2021 Telephone encounter Sp leonardo DO Work Phone: Urology Comment on above: Insurance Change for [employer] Start: 07-06-2021 Telephone encounter Natalya gastelum RN Work Phone: Hematology/Oncology Comment on above: Patient Update (Insu mario change/pharmacy change) Start: 07-05-2021 Refill Lillian Clemente MD Work Phone: Hematology/Oncology Comment on above: Refill Request Start: 02-14-2017 End: 02-14-2017 Ambulatory DORCAS WATERS Facility:[facility] Procedures Date Procedure Procedure Detail Performing Clinician Start: 08-26-2024 Echocardiography SANJEEV ARANDA Start: 08-09-2024 Ecg routine ecg w/least 12 lds i&r only [facility] Provider Start: 03-10-2024 Adult depression screening assessment Catherine Peraza APRN.CNP Work Phone: Start: 02-03-2024 Dup-scan artl kirsty abdl/pel/scrot&/rpr orgn com Arsalan Ocampo MD Work Phone: Start: 02-03-2024 Us scrotum & contents Arsalan Ocampo MD Work Phone: Start: 12-10-2023 Ct lumbar spine w/contrast material Maria Isabel Ellis Work Phone: Start: 12-10-2023 Ct abdomen & pelvis w/o contrast material Tee Ellis Work Phone: Start: 11-12-2023 Myocardial spect multiple studies Christos Champagne DO Work Phone: Start: 06-17-2023 Cv strs tst xers&/or rx cont ecg trcg only Catherine Podlogar COMMUNITY LIAISON OFFICER.DIRECTOR OF HEALTH CARE MARKETING Work Phone: Start: 06-11-2023 Radiologic exam chest 2 views Catherine Guerrero ogluba COMMUNITY LIAISON OFFICER.DIRECTOR OF HEALTH CARE MARKETING Work Phone: Start: 06-11-2023 Lipid 1996 panel - Serum or Plasma Catherine Podlogar COMMUNITY LIAISON OFFICER.DIRECTOR OF HEALTH CARE MARKETING Work Phone: Start: 03-13-2023 Lipid 1996 panel - Serum or Plasma Alexis Dorsey RN Work Phone: Start: 02-27-2022 Level iv surg pathology gross&microscopic exam Lyn Mcgowan MD Work Phone: Start: 02-27-2022 Esophagogastroduodenoscopy transoral diagnostic Derrek Baker PA-C Work Phone: Start: 02-27-2022 Colonoscopy flx dx w/collj spec when pfrmd Derrek Baker PA-C Work Phone: Start: 02-27-2022 Colonoscopy Asralan Ocampo MD Work Phone: Start: 08-26-2021 Adult depression screening assessment Lillian Clemente MD Work Phone: Start: 08-24-2021 Bone &/joint imaging whole body Lillian fernandez MD Work Phone: Start: 03-11-2021 Adult depression screening assessment Lillian Clemente MD Work Phone: Start: 10-12-2018 Lipid 1996 panel - Serum or Plasma Injec tigretel Wstr Work Phone: Start: 02-10-2017 Colonoscopy Lillian Clemente MD Work Phone: Tonsillectomy DR PERFECTO CRAWFORD MD Plan of Treatment Date Care Activity Detail Author Start: 09-23-2032 Urine microalbumin profile [facility] Start: 10-12-2028 Urine microalbumin profile DTAP,TDAP,TD (3 - Td or Tdap) [facility] Start: 06-10-2028 Lipid panel Lipid Screening [facility] Start: 03-13-2028 Lipid 1996 panel - Serum or Plasma Lipid Screening [facility] Start: 03-13-2028 Lipid panel Lipid Screening [facility] Start: 09-09-2027 Diabetes Screening Diabetes Screening [facility] Start: 08-12-2027 Diabetes Screening Diabetes Screening [facility] Start: 07-15-2027 Diabetes Screening Diabetes Screening [facility] Start: 06-17-2027 Diabetes Screening Diabetes Screening [facility] Start: 05-12-2027 Diabetes Screening Diabetes Screening [facility] Start: 04-14-2027 Diabetes Screening Diabetes Screening [facility] Start: 03-17-2027 Diabetes Screening Diabetes Screening [facility] Start: 02-27-2027 Colonoscopy COLONOSCOPY [facility] Start: 02-27-2027 COLORECTAL CANCER SCREENING COLORECTAL CANCER SCREENING [facility] Start: 02-27-2027 Screening for malignant neoplasm of colon [facility] Start: 02-17-2027 Diabetes Screening Diabetes Screening [facility] Start: 02-12-2027 PROSTATE CANCER SCREENING DISCUSSION PROSTATE CANCER SCREENING DISCUSSION [facility] Start: 01-20-2027 Diabetes Screening Diabetes Screening [facility] Start: 12-16-2026 Diabetes Screening Diabetes Screening [facility] Start: 11-20-2026 PROSTATE CANCER SCREENING DISCUSSION PROSTATE CANCER SCREENING DISCUSSION [facility] Start: 11-18-2026 Diabetes Screening Diabetes Screening [facility] Start: 10-21-2026 Diabetes Screening Diabetes Screening [facility] Start: 09-23-2026 Diabetes Screening Diabetes Screening [facility] Start: 08-26-2026 Diabetes Screening Diabetes Screening [facility] Start: 08-24-2026 PROSTATE CANCER SCREENING DISCUSSION PROSTATE CANCER SCREENING DISCUSSION [facility] Start: 07-30-2026 Diabetes Screening Diabetes Screening [facility] Start: 06-10-2026 Diabetes Screening Diabetes Screening [facility] Start: 06-04-2026 Diabetes Screening Diabetes Screening [facility] Start: 05-28-2026 PROSTATE CANCER SCREENING DISCUSSION PROSTATE CANCER SCREENING DISCUSSION [facility] Start: 04-16-2026 Diabetes Screening Diabetes Screening [facility] Start: 03-13-2026 Diabetes Screening Diabetes Screening [facility] Start: 08-07-2025 DIABETES SCREEN DIABETES SCREEN [facility] Start: 08-07-2025 Diabetes Screening Diabetes Screening [facility] Start: 03-10-2025 Depression Screening Depression Screening [facility] Start: 02-12-2025 DIABETES SCREEN DIABETES SCREEN [facility] Start: 11-20-2024 DIABETES SCREEN DIABETES SCREEN [facility] Start: 11-03-2024 End: 11-03-2024 ambulatory 11/03/2024 10:45 AM EDT [facility] Hematology/Oncology [address] [place] [address] Wstr, Injection Ryne [facility]ly [facility] [address] [place] [address] QMO?ARANESP/LAB&OV EARLY* Hematology/Oncology Comment on above: QMO?ARANESP/LAB&OV EARLY* Start: 11-03-2024 End: 11-03-2024 [facility] Comment on above: (SO)CBC/BMP(S)* 3 MO OV/LAB EARLY/IN J TODAY* PHIL Start: 11-02-2024 End: 11-02-2024 ambulatory [facility] Comment on above: (SO)CBC/BMP(S)* 3 MO OV/LAB EARLY/IN J TODAY* ABRDENISEOVICH r/s from 11/03 QMO?ARANESP/LAB&OV E DARREN* Start: 10-06-2024 End: 10-06-2024 [facility] Comment on above: (SO)CBC/BMP(S)* QMO?ARANESP/QMO XGEV A/LAB EARLY* Start: 10-05-2024 End: 10-05-2024 ambulatory [facility] Comment on above: (SO)CBC/BMP(S)* QMO?ARANESP/LAB BAM Y* Start: 09-30-2024 End: 09-30-2024 Patient encounter procedure Dermatology Comment on above: fbsc per surgery FBSE Start: 09-15-2024 End: 09-15-2024 Nursing evaluation of patient and report 09/15/2024 9:40 AM EDT Nurse Visit Dermatology [address] [place] [address] Nurse, Derm Surgery [address] [place] [address] wound check/DA to see Dermatology Comment on above: wound check/DA to see Start: 09-09-2024 End: 09-09-2024 ambulatory 09/09/2024 9:45 AM EDT [facility] Hematology/Oncology [address] [place] [address] Wstr, Injection Ryne [facility] [address] [place] [address] ELIGUARD* Hematology/Oncology Comment on above: ELIGUARD* Start: 09-08-2024 End: 09-08-2024 ambulatory [facility] Comment on above: (SO)CBC/BMP(S)* QMO?ARANESP/QMO XGEV A/LAB EARLY/MDCR* QMO?ARANESP/QMO XGEV A/LAB EARLY* QMO?ARANESP/LAB BAM Y* OV/LAB&INJ EARLY* Start: 08-26-2024 End: 08-26-2024 Patient encounter procedure 08/26/2024 9:40 AM EDT Office Visit Cardiology [address] [place] [address] ECHO Cardiology Comment on above: ECHO Start: 08-24-2024 DIABETES SCREEN DIABETES SCREEN [facility] Start: 08-11-2024 End: 08-11-2024 ambulatory [facility] Comment on above: (SO)CBC/BMP(S)* 3 MO OV/LAB EARLY/IN J TODAY* QMO?ARANESP/QMO XGEV A/LAB&OV EARLY/MDCR* Start: 08-09-2024 End: 08-09-2024 Patient encounter procedure 08/09/2024 3:30 PM EDT Office Visit Cardiology [address] [address] Candace Guerra APRN.DIRECTOR OF HEALTH CARE MARKETING [address] [place] [address] DX: SOB (shortness of breath) [R06.02]; Chest pain, unspecified type Cardiology Comment on above: DX: SOB (shortness of breath) [R06.02]; Chest pain, unspecified type Start: 07-14-2024 End: 07-14-2024 ambulatory [facility] Comment on above: (SO)CBC/BMP(S)* QMO?ARANESP/QMO XGEV A/LAB EARLY/MDCR* Start: 07-09-2024 Covid-19 Vaccine () Covid-19 Vaccine () [facility] Start: 07-07-2024 End: 07-07-2024 Nursing evaluation of patient and report 07/07/2024 9:00 AM EDT Nurse Visit Dermatology [address] [facility] [place] [address] Nurse, Derm Surgery [address] [facility] [place] [address] suture removal Dermatology Comment on above: suture removal Start: 06-25-2024 End: 06-25-2024 Patient encounter procedure 06/25/2024 10:30 AM EDT Office Visit Cardiology [address] [address] Candace Guerra APRN.DIRECTOR OF HEALTH CARE MARKETING [address] [place] [address] DX: SOB (shortness of breath) [R06.02]; Chest pain, unspecified type Cardiology Comment on above: DX: SOB (shortness of breath) [R06.02]; Chest pain, unspecified type Start: 06-24-2024 End: 06-24-2024 Patient encounter procedure 06/24/2024 9:30 AM EDT Office Visit Radiation Oncology [address] [facility] [place] [address] Suresh Hodges MD [address] [place] [facility] [place] [address] 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 KIRTI SAUNDERS/THIS DATE AND TIME PER PATIENT Start: 06-18-2024 End: 06-18-2024 Patient encounter procedure 06/18/2024 8:45 AM EDT Office Visit Dermatology [address] [facility] [place] [address] Richie Dejesus MD [address] [place] [address] receck a couple of spots/possible bx Dermatology Comment on above: receck a couple of spots/possible bx Start: 06-17-2024 End: 06-17-2024 Patient encounter procedure Dermatology Comment on above: Mohs: Mohs: SCC right craig n scalp, 2 pts Start: 06-16-2024 End: 06-16-2024 ambulatory [facility] Comment on above: (SO)CBC/BMP(S)* QMO?ARANESP/QMO XGEV A/LAB EARLY/MDCR* pt requested date Start: 06-16-2024 End: 06-16-2024 Patient encounter procedure 06/16/2024 8:45 AM EDT Office Visit Dermatology [address] [facility] [place] [address] Madelaine Bronson MD [address] [place] [address] Mohs: SCC right crown scalp, 4 pts Dermatology Comment on above: Mohs: SCC right crown scalp, 4 pts Start: 05-28-2024 DIABETES SCREEN DIABETES SCREEN [facility] Start: 05-12-2024 End: 05-12-2024 ambulatory [facility] Comment on above: (SO)CBC/BMP(S)* QMO?ARANESP/QMO XGEV A/LAB EARLY/MDCR* Start: 05-10-2024 End: 05-10-2024 Patient encounter procedure 05/10/2024 2:30 PM EST Office Visit Pain Management [address] [address] Gualberto Mcmahon MD [address] [facility] [place] [address] Osteoarthritis of spine with radiculopathy, lumbar region [M47.26] Pain Management Comment on above: Osteoarthritis of spine with radiculopat hy, lumbar region [M47.26] Start: 04-28-2024 End: 04-28-2024 Patient encounter procedure 04/28/2024 9:00 AM EST Office Visit Pain Management [address] [address] Gualberto Mcmahon MD [address] [facility] [place] [address] Osteoarthritis of spine with radiculopathy, lumbar region [M47.26] Pain Management Comment on above: Osteoarthritis of spine with radiculopat hy, lumbar region [M47.26] Start: 04-15-2024 End: 04-15-2024 Patient encounter procedure 04/15/2024 10:30 AM EST Office Visit Cardiology [address] [address] Candace Guerra APRN.DIRECTOR OF HEALTH CARE MARKETING [address] [place] [address] 6 month follow up Cardiology Comment on above: 6 month follow up Start: 04-14-2024 End: 04-14-2024 ambulatory [facility] Comment on above: (SO)CBC/BMP(S)* QMO?ARANESP/QMO XGEV A/LAB EARLY/MDCR* Start: 04-07-2024 Advance Directive Discussion Advance Directive Discussion [facility] Start: 04-01-2024 End: 04-01-2024 ambulatory 04/01/2024 2:15 PM EST OT/PT/Speech Visit [facility] [address] [facility] [place] [address] Endy Curran M, PT left hip [facility] Comment on above: left hip Start: 03-24-2024 End: 03-24-2024 ambulatory 03/24/2024 2:15 PM EST OT/PT/Speech Visit [facility] [address] [facility] [address] Endy Curran M, PT left hip pain [facility] Comment on above: left hip pain Start: 03-19-2024 End: 03-19-2024 ambulatory 03/19/2024 3:00 PM EST OT/PT/Speech Visit [facility] [address] [facility] [address] Endy Curran M, PT left hip pain [facility] Comment on above: left hip pain Start: 03-19-2024 End: 03-19-2024 Patient encounter procedure 03/19/2024 10:45 AM EST Office Visit Dermatology [address] [facility] [place] [address] Richie Dejesus MD [address] [facility] [place] [address] Ak followo up Dermatology Comment on above: Ak followo up Start: 03-18-2024 End: 03-18-2024 ambulatory Hematology/Oncology Comment on above: Q6MO LUPRON/MDCR* (SO)CBC/BMP(S)* (SO)CBC/BMP(S)/QMO?A RANESP/QMO XGEVA/Q6MO LUPRON/MDCR* - this date per patient Start: 03-17-2024 End: 03-17-2024 ambulatory Nikole Armando [facility] Laboratory Comment on above: (SO)CBC/BMP(S)* (SO)CBC/BMP(S)/QMO?A RANESP/QMO XGEVA/Q6MO LUPRON/MDCR* - this date per patient QMO?ARANESP/QMO XGEV A/Q6MO LUPRON/LAB EARLY/MDCR* - this date per patient Start: 03-16-2024 End: 03-16-2024 ambulatory 03/16/2024 2:00 PM EST OT/PT/Speech Visit [facility] [address] [facility] [address] 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, 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 left hip 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 [facility] Comment on above: left hip pain Start: 03-12-2024 End: 03-12-2024 ambulatory 03/12/2024 11:45 AM EST OT/PT/Speech Visit [facility] [address] [facility] [address] 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, 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 left hip pain [facility] Comment on above: left hip pain Start: 03-10-2024 End: 03-10-2024 Patient encounter procedure 03/10/2024 9:00 AM EST Office Visit [facility] [place] [address] [place] [address] PodlogarCatherine APRN.DIRECTOR OF HEALTH CARE MARKETING [address] [place] [address] medicare wellness [facility] Comment on above: medicare wellness Start: 03-02-2024 End: 03-02-2024 ambulatory 03/02/2024 2:45 PM EST OT/PT/Speech Visit [facility] [address] [facility] [address] 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, 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 left hip pain [facility] Comment on above: left hip pain Start: 02-27-2024 End: 02-27-2024 ambulatory 02/27/2024 11:45 AM EST OT/PT/Speech Visit [facility] [address] [facility] [place] [address] 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, 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 Left hip pain [facility] Comment on above: Left hip pain Start: 02-25-2024 End: 02-25-2024 ambulatory [facility] [place] Comment on above: Left hip pain Left hip pain re- eval Start: 02-24-2024 End: 02-24-2024 Patient encounter procedure 02/24/2024 2:15 PM EST Office Visit Orthopaedics [address] [address] Vicente Roach MD [address] [place] [address] Left Hip Pain Orthopaedics Comment on above: Left Hip Pain Start: 02-23-2024 End: 02-23-2024 Patient encounter procedure 02/23/2024 4:15 PM EST Office Visit Orthopaedics [address] [place] [address] Vicente Roach MD [address] [place], [place] [address] Left Hip Pain Orthopaedics Comment on above: Left Hip Pain Start: 02-20-2024 End: 02-20-2024 ambulatory 02/20/2024 11:45 AM EST OT/PT/Speech [facility] [place] [address] [place] [address] Jose David Cedeno M, 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 Left hip pain [facility] [place] Comment on above: Left hip pain Start: 02-18-2024 End: 02-18-2024 ambulatory 02/18/2024 1:15 PM EST OT/PT/Speech [facility] [place] [address] [place] [address] 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 M, 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 Left hip pain [facility] [place] Comment on above: Left hip pain Start: 02-18-2024 End: 02-18-2024 ambulatory Nikole Armando [facility] Laboratory Comment on above: (SO)CBC/BMP(S)* (SO)CBC/BMP(S)/QMO?A RANESP/QMO XGEVA/MDCR* Start: 02-13-2024 End: 02-13-2024 ambulatory 02/13/2024 11:45 AM EST OT/PT/Speech Visit [facility] [address] [place] [address] 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, 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 Left hip pain [facility] Comment on above: Left hip pain Start: 02-11-2024 End: 02-11-2024 ambulatory [facility] Comment on above: (SO)CBC/BMP(S)* (SO)CBC/BMP(S)/QMO?A RANESP/QMO XGEVA/MDCR* Left hip pain Start: 02-03-2024 End: 02-03-2024 Patient encounter procedure 02/03/2024 10:00 AM EDT Office Visit [facility] [address] [place], [place] [id number] Arsalan Ocampo MD [address] [place], [place] [id number] medicare wellness [facility] Comment on above: medicare wellness Start: 01-31-2024 RSV Vaccine (1 - 1-dose 60+ series) RSV Vaccine (1 - 1-dose 60+ series) [facility] Comment on above: Postponed from 2013 (Declined at t his time) Start: 01-29-2024 End: 01-29-2024 ambulatory 01/29/2024 9:30 AM EDT OT/PT/Speech Visit [facility] [address] [place] [address] Endy Curran, PT Left hip pain [M25.552] [facility] Comment on above: Left hip pain [M25.552] Start: 01-21-2024 End: 01-21-2024 ambulatory [facility] Comment on above: (SO)CBC/BMP(S)* (SO)CBC/BMP(S)/QMO?A RANESP/QMO XGEVA/MDCR* OV/LABS & INJECTION TODAY* Start: 01-14-2024 End: 01-14-2024 [facility] Comment on above: (SO)CBC/BMP(S)* (SO)CBC/BMP(S)/QMO?A RANESP/QMO XGEVA/MDCR* Start: 12-17-2023 End: 12-17-2023 [facility] Comment on above: (SO)CBC/BMP(S)* (SO)CBC/BMP(S)/QMO?A RANESP/QMO XGEVA/MDCR* Start: 12-10-2023 End: 12-10-2023 Patient encounter procedure Cat Scan Comment on above: 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, C79.51]; Abdominal pain, unspecified abdominal location [R10.9]; Acute left-sided low back pain, unspecified whether sciatica present [M54.50] Start: 12-07-2023 Covid-19 Vaccine ( season) Covid-19 Vaccine () [facility] Start: 12-07-2023 Covid-19 Vaccine ( season) Covid-19 Vaccine () [facility] Start: 12-07-2023 Influenza vaccination [facility] Start: 12-02-2023 End: 12-02-2023 Patient encounter procedure 12/02/2023 9:30 AM EDT Office Visit Dermatology [address] [place], [place] [id number] Richie Dejesus MD [address] [place] [address] FBSE Dermatology Comment on above: FBSE Start: 11-22-2023 End: 02-21-2024 HEMOGLOBIN EVALUATION CASCADE HEMOGLOBIN EVALUATION CASCADE Lab Routine 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) Expected: 11/22/2023, Expires: 02/21/2024 [facility] Comment on above: Expected: 11/22/2023, Expires: Start: 11-19-2023 End: 11-19-2023 [facility] Comment on above: (SO)CBC/BMP(S)* (SO)CBC/BMP(S)/QMO?A RANESP/QMO XGEVA/MDCR* Start: 11-12-2023 Subsequent hospital visit by physician 11/12/2023 9:45 AM EDT Hospital Encounter Cardiology Lab [address] [place] [address] SOB (shortness of breath) [R06.02] Cardiology Lab Comment on above: SOB (shortness of breath) [R06.02] Start: 11-12-2023 End: 11-12-2023 Patient encounter procedure 11/12/2023 8:45 AM EDT Appointment Molecular Imaging [address] [place] [id number] EPIC ORDER [facility] Imaging Comment on above: EPIC ORDER Start: 10-22-2023 End: 10-21-2024 Cobalamin (Vitamin B12) [Mass/volume] in Serum or Plasma VITAMIN B12 Lab Routine 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) Expected: 10/22/2023, Expires: 10/21/2024 [facility] Comment on above: Expected: 10/22/2023, Expires: Start: 10-22-2023 End: 10-21-2024 Ferritin [Mass/volume] in Serum or Plasma FERRITIN Lab Routine 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) Expected: 10/22/2023, Expires: 10/21/2024 [facility] Comment on above: Expected: 10/22/2023, Expires: Start: 10-22-2023 End: 10-21-2024 Iron and Iron binding capacity panel - Serum or Plasma IRON AND TIBC Lab Routine 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) Expected: 10/22/2023 (Approximate), Expires: 10/21/2024 [facility] Comment on above: Expected: 10/22/2023 (Approximate), Expi res: 10/21/2024 Start: 10-22-2023 End: 10-22-2023 ambulatory Nikole Armando [facility] Laboratory Comment on above: (SO)CBC/BMP(S)* (SO)CBC/BMP(S)/QMO?A RANESP/QMO XGEVA/MDCR* 7 MO OVLAB EARLY/INJ ECTINS TODAY* 7 MO OV/LAB EARLY/IN J TODAY* 7 MO OV/LAB 10/19/INJ TODAY* Start: 10-20-2023 End: 10-20-2023 ambulatory 10/20/2023 8:00 AM EDT Results Only Nikole Hoangwn [facility] [address] [place] [address] (SO)CBC/BMP(S)/PSA* [facility] Comment on above: (SO)CBC/BMP(S)/PSA* Start: 10-16-2023 End: 10-16-2023 Patient encounter procedure 10/16/2023 2:20 PM EDT Office Visit Cardiology [address] [place], [place] [id number] Dorcas Champagne, [address] [place], [place] [id number] SOB (shortness of breath) [R06.02]; Chest pain, unspecified type [R07.9] Cardiology Comment on above: SOB (shortness of breath) [R06.02]; Ches t pain, unspecified type [R07.9] Start: 10-13-2023 Lipid 1996 panel - Serum or Plasma Lipid Screening [facility] Start: 10-13-2023 LIPID SCREEN LIPID SCREEN [facility] Start: 10-02-2023 End: 10-02-2023 ambulatory 10/02/2023 8:45 AM EDT Infusion Center Hematology/Oncology [address] [place] [address] Wstr, Injection Ryne [facility] [address] [place] [address] Q6MO LUPRON/MDCR* Hematology/Oncology Comment on above: Q6MO LUPRON/MDCR* Start: 09-24-2023 End: 09-24-2023 ambulatory Nikole Hoangwn [facility] Laboratory Comment on above: (SO)CBC/BMP(S)* (SO)CBC/BMP(S)/QMO?A RANESP/QMO XGEVA/MDCR* Start: 09-10-2023 End: 09-10-2023 Patient encounter procedure 09/10/2023 9:20 AM EDT Office Visit Cardiology [address] [place] [address] Juanito Mcfarlane MD [address] [place] [address] SOB (shortness of breath) [R06.02]; Chest pain, unspecified type [R07.9] Cardiology Comment on above: SOB (shortness of breath) [R06.02]; Ches t pain, unspecified type [R07.9] Start: 08-27-2023 End: 08-27-2023 ambulatory [facility] Comment on above: (SO)CBC/BMP(S)* (SO)CBC/BMP(S)/QMO?A RANESP/QMO XGEVA/MDCR* Start: 07-31-2023 End: 07-31-2023 ambulatory [facility] Comment on above: (SO)CBC/BMP(S)* (SO)CBC/BMP(S)/QMO?A RANESP/QMO XGEVA/MDCR* Start: 05-19-2023 Covid-19 Vaccine ( season) Covid-19 Vaccine () [facility] Start: 04-07-2023 Advance Directive Discussion Advance Directive Discussion [facility] Start: 04-07-2023 Behavioral Health Screening Behavioral Health Screening [facility] Start: 04-07-2023 Depression Assessment Depression Assessment [facility] Start: 03-18-2023 End: 06-17-2023 Comprehensive metabolic 2000 panel - Serum or Plasma COMP METABOLIC PANEL Lab Routine Hyperlipidemia, mixed Expected: 03/18/2023, Expires: 06/17/2023 [facility] Work Phone: Comment on above: Expected: 03/18/2023, Expires: Start: 03-18-2023 End: 06-17-2023 LIPID PANEL, NONFASTING LIPID PANEL, NONFASTING Lab Routine Hyperlipidemia, mixed Expected: 03/18/2023, Expires: 06/17/2023 [facility] Work Phone: Comment on above: Expected: 03/18/2023, Expires: Start: 03-13-2023 Covid-19 Vaccine ( season) Covid-19 Vaccine ( season) [facility] Start: 03-11-2023 Covid-19 Vaccine () Covid-19 Vaccine () [facility] Start: 12-06-2022 Covid-19 Vaccine () Covid-19 Vaccine () [facility] Start: 12-06-2022 Influenza vaccination [facility] Start: 11-13-2022 COVID-19 VACCINE (4 - Booster for Moderna series) COVID-19 VACCINE (4 - Booster for Moderna series) [facility] Comment on above: Postponed from 05/17/2021 (Declined at t his time) Start: 08-26-2022 Adult depression screening assessment DEPRESSION SCREENING [facility] Start: 04-07-2022 ADVANCE DIRECTIVE DISCUSSION ADVANCE DIRECTIVE DISCUSSION [facility] Start: 04-07-2022 DEPRESSION ASSESSMENT DEPRESSION ASSESSMENT [facility] Start: 03-11-2022 Adult depression screening assessment DEPRESSION SCREENING [facility] Start: 02-10-2022 Colonoscopy COLONOSCOPY [facility] Start: 02-10-2022 COLORECTAL CANCER SCREENING COLORECTAL CANCER SCREENING [facility] Start: 01-17-2022 COVID-19 VACCINE (5 - Booster for Moderna series) COVID-19 VACCINE (5 - Booster for Moderna series) [facility] Start: 01-17-2022 COVID-19 VACCINE (5 - Moderna series) COVID-19 VACCINE (5 - Moderna series) [facility] Start: 12-06-2021 Influenza vaccination INFLUENZA (#1) [facility] Start: 05-25-2021 COVID-19 VACCINE (4 - Booster for Moderna series) COVID-19 VACCINE (4 - Booster for Moderna series) [facility] Start: 04-07-2021 ADVANCE DIRECTIVE DISCUSSION ADVANCE DIRECTIVE DISCUSSION [facility] Start: 04-07-2021 DEPRESSION ASSESSMENT DEPRESSION ASSESSMENT [facility] Start: 10-06-2021 PNEUMOVAX AGE 65 AND OVER WITH 5YR LOOKBACK (#1) PNEUMOVAX AGE 65 AND OVER WITH 5YR LOOKBACK (#1) [facility] Start: 02-03-2020 FECAL OCCULT BLOOD FECAL OCCULT BLOOD [facility] Start: 02-03-2020 Screening for malignant neoplasm of colon Fecal Occult Blood [facility] Start: 2018 Abdominal aortic aneurysm screening ABDOMINAL AORTIC ANEURYSM HIGH RISK SCREEN [facility] Start: 2018 Pneumococcal vaccination PNEUMOCOCCAL VACCINE SERIES (1 - PCV) [facility] Start: 2013 RSV Vaccine (1 - 1-dose 60+ series) RSV Vaccine (1 - 1-dose 60+ series) [facility] Start: 2003 Prostate specific antigen measurement PROSTATE CANCER SCREENING DISCUSSION [facility] Start: 2003 Zoster vaccine hzv live for subcutaneous use ZOSTER (SHINGLES) VACCINE (1 of 2) [facility] Start: 1998 COLOGUARD (FIT-DNA) COLOGUARD (FIT-DNA) [facility] Start: 1998 Colonoscopy COLORECTAL CANCER SCREENING DISCUSSION [facility] Start: [address] COLONOGRAPHY [facility] Start: 1998 Screening for malignant neoplasm of colon [facility] Start: 1998 SIGMOIDOSCOPY SIGMOIDOSCOPY [facility] Start: 1993 Fasting lipid profile LIPID SCREENING [facility] Start: 1972 Third diphtheria, tetanus and acellular pertussis (DTaP) vaccination TDAP (ADULT) [facility] Start: 1971 Anxiety Screening Anxiety Screening [facility] Start: 1971 Depression Screening Depression Screening [facility] Start: 1971 Tetanus vaccination TETANUS [facility] Start: 1958 COVID-19 VACCINE (#1) COVID-19 VACCINE (#1) [facility] Start: 1953 Hepatitis C antibody, confirmatory test HEPATITIS C VIRUS SCREENING [facility] End: 10-21-2024 CBC W Auto Differential panel - Blood COMPLETE BLOOD COUNT AND DIFFERENTIAL Lab Routine 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) Every 3 months for 4 Occurrences starting 10/22/2023 until 10/21/2024 [facility] Comment on above: Every 3 months for 4 Occurrences startin g 10/22/2023 until 10/21/2024 End: 01-03-2025 CT Abdomen and Pelvis WO contrast CT ABD/PEL WO IVCON Radiology STAT Prostate cancer metastatic to bone (HCC) Abdominal pain, unspecified abdominal location Acute left-sided low back pain, unspecified whether sciatica present 1 Occurrences starting 12/05/2023 until 01/03/2025 [facility] Work Phone: Comment on above: 1 Occurrences starting 12/05/2023 until 01/03/2025 End: 01-03-2025 CT Lumbar spine W contrast IV CT LUMBAR SPINE W IVCON Radiology STAT Prostate cancer metastatic to bone (HCC) Abdominal pain, unspecified abdominal location Acute left-sided low back pain, unspecified whether sciatica present 1 Occurrences starting 12/05/2023 until 01/03/2025 [facility] Comment on above: 1 Occurrences starting 12/05/2023 until 01/03/2025 ECG COMPLETE ECG COMPLETE ECG Routine SOB (shortness of breath) Chest pain, unspecified type Ordered: 06/11/2023 [facility] Work Phone: Comment on above: Ordered: 06/11/2023 End: 06-10-2024 Echocardiography ECHO Cardiology Routine SOB (shortness of breath) Chest pain, unspecified type 1 Occurrences starting 06/11/2023 until 06/10/2024 [facility] Work Phone: Comment on above: 1 Occurrences starting 06/11/2023 until 06/10/2024 End: 08-09-2025 Echocardiography ECHO Cardiology Routine SOB (shortness of breath) 1 Occurrences starting 08/09/2024 until 08/09/2025 [facility] Work Phone: Comment on above: 1 Occurrences starting 08/09/2024 until 08/09/2025 End: 06-10-2024 EXERCISE STRESS ECG (WITHOUT IMAGING) EXERCISE STRESS ECG (WITHOUT IMAGING) Cardiology ANAMARIA SOB (shortness of breath) Chest pain, unspecified type 1 Occurrences starting 06/11/2023 until 06/10/2024 [facility] Work Phone: Comment on above: 1 Occurrences starting 06/11/2023 until 06/10/2024 End: 11-14-2024 NM Heart Perfusion W multiple states of exercise NM CARDIAC PERF STRESS/EXERCISE Radiology Routine SOB (shortness of breath) Abnormal ECG Chest pain, unspecified type Mixed hyperlipidemia 1 Occurrences starting 10/16/2023 until 11/14/2024 [facility] Work Phone: Comment on above: 1 Occurrences starting 10/16/2023 until 11/14/2024 End: 07-30-2024 Prostate specific Ag [Mass/volume] in Serum or Plasma PROSTATE-SPECIFIC ANTIGEN DIAGNOSTIC Lab Routine Prostate cancer (HCC) Every 3 months for 4 Occurrences starting 07/31/2023 until 07/30/2024 [facility] Work Phone: Comment on above: Every 3 months for 4 Occurrences startin g 07/31/2023 until 07/30/2024 End: 10-21-2024 Prostate specific Ag [Mass/volume] in Serum or Plasma PROSTATE-SPECIFIC ANTIGEN DIAGNOSTIC Lab Routine Prostate cancer metastatic to bone (HCC) Every 3 months for 4 Occurrences starting 10/22/2023 until 10/21/2024 [facility] Work Phone: Comment on above: Every 3 months for 4 Occurrences startin g 10/22/2023 until 10/21/2024 SURGICAL PATHOLOGY SURGICAL PATH OLOGY Lab Routine Skin neoplasm 05/04/2024 12:50 PM EST [facility] Work Phone: Tissue Pathology bio psy report SURGICAL PATHOLOGY Lab Routine Squamous cell carcinoma of scalp 06/17/2024 10:36 AM EDT [facility] Work Phone: End: 01-22-2025 XR Pelvis and Hip - left AP and Lateral frog XR HIP GENERAL 3V PELV/AP/LAT LEFT Radiology Routine Left hip pain 1 Occurrences starting 12/24/2023 until 01/22/2025 [facility] Work Phone: Comment on above: 1 Occurrences starting 12/24/2023 until 01/22/2025 XR Pelvis and Hip - left AP and Lateral frog XR HIP GENERAL 3V PELV/AP/LAT LEFT Radiology Routine Left hip pain 12/24/2023 12:18 PM EDT [facility] Immunizations Immunization Date Immunization Notes Care Provider Fa [facility] 04-23-2024 respiratory syncytia l virus (RSV) vaccine, adjuvanted (AREXVY) Richie Dejesus MD Work Phone: [facility] 01-09-2024 influenza, high dose seasonal, preservative-free Arsalan Ocampo MD Work Phone: [facility] 03-19-2023 respiratory syncytia l virus (RSV) vaccine, adjuvanted (AREXVY) Injection Ws Work Phone: [facility] 01-16-2023 COVID-19 vaccine, ag e 12+ yr (MODERNShireen) Arsalan Ocampo MD Work Phone: [facility] 01-14-2023 COVID-19 original vaccine, full dose, monovalent (MODERNA) Arsalan Ocampo MD Work Phone: [facility] 12-25-2022 influenza (aIIV4) vaccine, age 65+ yr, quadrivalent, PF (FLUAD QUAD) Arsalan Ocampo MD Work Phone: [facility] 12-25-2022 influenza virus vaccine, unspecified formulation Dorcas Champagne DO Work Phone: [facility] 09-23-2022 tetanus toxoid, redu olinda diphtheria toxoid, and acellular pertussis vaccine, adsorbed DR PERFECTO CRAWFORD MD [facility] 01-20-2022 influenza (aIIV4) vaccine, age 65+ yr, quadrivalent, PF (FLUAD QUADRIVALENT) Arsalan Ocampo MD Work Phone: [facility] 01-20-2022 influenza virus vaccine, unspecified formulation Injection Wstr Work Phone: [facility] 06-19-2021 pneumococcal (PCV20) vaccine, 20 valent (PREVNAR 20) Lillian Clemente MD Work Phone: [facility] Work Phone: 12-26-2020 influenza, high dose seasonal, preservative-free iLllian Clemente MD Work Phone: [facility] 12-26-2020 influenza, high-dose , quadrivalent vaccine (FLUZONE HIGH DOSE QUADRIVALENT) Lillian Clemente MD Work Phone: [facility] 06-23-2020 COVID-19 vaccine, fu ll dose (MODERNA) Lillian Clemente MD Work Phone: [facility] 05-26-2020 COVID-19 vaccine, fu ll dose (MODERNA) Lillian Clemente MD Work Phone: [facility] 02-16-2020 zoster vaccine recombinant Lillian Clemente MD Work Phone: [facility] 12-08-2019 influenza, high-dose , quadrivalent vaccine (FLUZONE HIGH DOSE QUADRIVALENT) Lillian Clemente MD Work Phone: [facility] 12-08-2019 zoster vaccine recombinant Lillian Clemente MD Work Phone: [facility] 12-15-2018 influenza, high dose seasonal, preservative-free Lillian Clemente MD Work Phone: [facility] 12-15-2018 Influenza, injectabl e, Madin Sanjeev Canine Kidney, preservative free, quadrivalent Lillian Clemente MD Work Phone: [facility] Work Phone: 10-12-2018 pneumococcal conjuga te vaccine, 13 valent Lillian Clemente MD Work Phone: [facility] 01-28-2018 Influenza, injectabl e, Madin Sanjeev Canine Kidney, preservative free, quadrivalent Lillian Clemente MD Work Phone: [facility] Work Phone: 12-17-2016 influenza, injectabl e, quadrivalent, preservative free Lillian Clemente MD Work Phone: [facility] Work Phone: 12-17-2016 influenza, seasonal, injectable Lillian Clemente MD Work Phone: [facility] 01-11-2016 pneumococcal polysaccharide vaccine, 23 valent Lillian Clemente MD Work Phone: [facility] 12-07-2015 influenza, injectabl e, quadrivalent, contains preservative Lillian Clemente MD Work Phone: [facility] 11-24-2015 influenza, injectabl e, quadrivalent, preservative free Lillian Clemente MD Work Phone: [facility] Work Phone: 12-26-2010 influenza virus vaccine, unspecified formulation Lillian Clemente MD Work Phone: [facility] Work Phone: 04-05-2009 novel [id number], preservative-free, injectable Lillian Clemente MD Work Phone: [facility] Work Phone: 01-21-2008 tetanus toxoid, redu olinda diphtheria toxoid, and acellular pertussis vaccine, adsorbed Lillian Clemente MD Work Phone: [facility] Work Phone: Payers Date Payer Category Payer Self-pay 2021 Medicare [id number] 2021 Private Health Insurance [facility] [id number] 2021-Present [phone] [address] [place] [address] Indemnity [id number] 2021 Private Health Insurance [id number] 2021 Unknown [id number] 2018 Medicare [id number] 2018 Medicare [id number] 2016 Unknown [id number] 2002 Unknown [id number] 1953 Unknown [id number] 1953 Unknown [id number] Unknown [id number] Unknown [id number] Unknown [id number] Unknown [id number] Unknown [id number] Unknown [id number] Unknown [id number] Social History Date Type Detail Facility Start: 07-13-2013 End: 12-24-2023 Tobacco smoking status NHIS Ex-smoker [facility] Start: 01-13-1971 End: 07-13-1973 History of tobacco use Current smoker [facility] Start: 01-13-1971 End: 07-13-1973 History of tobacco use Cigarette Smoker [facility] Start: 07-13-2013 End: 10-29-2022 Cigarettes smoked current (pack per day) - Reported 0.25 [facility] Start: 07-13-2013 End: 12-24-2023 Tobacco use and exposure Smokeless tobacco non-user [facility] Start: 06-21-2021 End: 02-27-2022 Alcohol intake Current drinker of alcohol (finding) [facility] Start: 06-28-2020 History SDOH Alcohol Frequency 4 [facility] Start: 06-28-2020 End: 04-09-2021 History SDOH Alcohol Std Drinks 1 [facility] Start: 08-09-2020 History SDOH Alcohol Comment occasionally [facility] Start: 06-28-2020 History SDOH Social Connections Phone 5 [facility] Start: 06-28-2020 History SDOH Social Connections Baptism 3 [facility] Start: 06-28-2020 History SDOH Social Connections Membership 98 [facility] Start: 06-28-2020 End: 04-09-2021 History SDOH Transport Med 2 [facility] Start: 06-28-2020 Education 17 [facility] Start: 1955 Sex Assigned At Male [facility] Start: 06-11-2021 End: 02-27-2022 Exposure to SARS-CoV-2 (event) Not sure [facility] Start: 1955 Sex Assigned At Not on file [facility] [place] Sex Assigned At Sex [facility] Start: 06-28-2020 End: 10-29-2022 Social connection and isolation panel [facility] Do you belong to any clubs or organizations such as uatsdin groups, unions, fraternal or athletic groups, or school groups? Patient refused [facility] Are you now , , , , never or living with a partner? [facility] How often to you hav e a drink containing alcohol? 2-3 time sa week [facility] How many standard dr inks containing alcohol do you have on a typical day? 1 or 2 [facility] How often do you hav e 6 or more drinks on 1 occasion? Never [facility] Do you feel stress - tense, restless, nervous, or anxious, or unable to sleep at night because your mind is troubled all the time - these days [OSQ] Not at all [facility] (I/We) worried layla er (my/our) food would run out before (I/we) got money to buy more. Never true [facility] In the past 12 month s, was there a time when you were not able to pay the mortgage or rent on time? No [facility] Start: 10-07-2018 Gender identity Identifies as male gender (finding) [facility] Start: 10-11-2019 Sexual orientation Heterosexual (finding) [facility] Do you belong to any clubs or organizations such as uatsdin groups, unions, [employer] or athletic groups, or school groups? Yes [facility] Do you feel stress - tense, restless, nervous, or anxious, or unable to sleep at night because your mind is troubled all the time - these days [OSQ] Only a little [facility] Start: 01-30-2023 End: 09-08-2024 Alcohol intake Ex-drinker (finding) [facility] Goals Date Patient Goal Desired Activity /State Personal health goal Functional Status Date Assessment Result Facility 09-23-2022 Functional Status Up ad jerrell Kaity Briceno Benedict 10-11-2014 Are you deaf, or do you have serious difficulty hearing No 10/11/2014 1:54 PM Mariangel Isaac MA No [facility] 10-11-2014 Are you blind, or do you have serious difficulty seeing, even when wearing glasses No 10/11/2014 1:54 PM Mariangel Isaac MA No [facility] 10-11-2014 Do you have serious difficulty walking or climbing stairs No 10/11/2014 1:54 PM Mariangel Isaac MA No [facility] 10-11-2014 Do you have difficul ty dressing or bathing No 10/11/2014 1:54 PM EDT Mariangel Baum MA No [facility] 10-11-2014 Because of a physica l, mental, or emotional condition, do you have difficulty doing errands alone such as visiting a physician's office or shopping No 10/11/2014 1:54 PM EDT Mariangel Baum MA No [facility] Mental Status Date Assessment Result Facility 09-23-2022 Mental Status Orientation Oriented x 4 [facility] 10-11-2014 Because of a physica l, mental, or emotional condition, do you have serious difficulty concentrating, remembering, or making decisions No 10/11/2014 1:54 PM EDT Mariangel Baum MA No [facility] Clinical Notes 07-13-2013 to 09-10-2024 Lorin Zhang LPN - 09/10/2024 1:23 PM Lorin Luque LPN - 09/08/2024 11:11 AM EDTTelephone Encounter - Roseanna Moore RN - 08/20/2024 4:45 PM Lorin Luque LPN - 08/11/2024 9:41 AM EDT Note Date & Type Note Facility 09-10-2024 Note [facility] 09-10-2024 History of Present illness Narrative Patient here for injection of Eligard. Given SQ in RLQ. Patient tolerated well. Pt returns for injection today, Wednesdays injection kit malfunction. She additional information from villa Herring on 09/08/24 Lorin Zhang LPN documented in this encounter [facility] 09-08-2024 Note [facility] 09-08-2024 History of Present illness Narrative Eligard not given and will be rescheduled for tomorrow. While preparing the Eligard mixture, the mixture began to seep into the clip between the two syringes. Syringe inspected by pharmacist, will order a replacement. Aranesp given SQ in left arm, patient tolerated well. For all other information regarding today, see today's OV note with Dr Herring. documented in this encounter [facility] 09-08-2024 Note [facility] 08-27-2024 Note [facility] 08-20-2024 Telephone encounter Note Spoke to BLISTER PACKAGING MACHINE OPERATOR. Patient informed that diarrhea/flu-like symptoms are not related. Patient stated understanding. Patient stated he has SOB at baseline and had 1 episode yesterday where he had worsening SOB but this has resolved and returned back to baseline. Patient denied dizziness with standing today. Discussed s/s of when we should check labs and patient stated understanding. Patient stated he will call in next week if he changes his mind. Roseanna Moore RN [facility] 08-20-2024 Miscellaneous Notes Spoke to BLISTER PACKAGING MACHINE OPERATOR. Patient informed that diarrhea/flu-like symptoms are not related. Patient stated understanding. Patient stated he has SOB at baseline and had 1 episode yesterday where he had worsening SOB but this has resolved and returned back to baseline. Patient denied dizziness with standing today. Discussed s/s of when we should check labs and patient stated understanding. Patient stated he will call in next week if he changes his mind. Roseanna Moore RN documented in this encounter [facility] 08-11-2024 Note HNO ID: [id number] Author: LORIN ZHANG LPN Service: ? Author Type: LICENSED NURSE Type: Progress Notes Filed: 08/11/2024 09:48 Note Text: Xgeva and Aranesp injections held today per office visit with Dr Herring today. Lorin Zhang LPN [facility] 08-11-2024 History of Present illness Narrative Xgeva and Aranesp injections held today per office visit with Dr Herring today. Lorin Zhang LPN documented in this encounter [facility] 08-11-2024 History of Present illness Narrative (Elements copied from my note dated January 21, 2024, have been reviewed and updated where appropriate, and all reflect current assessment and medical decision making from today's encounter, August 11, 2024) HISTORY OF PRESENT ILLNESS: Luther Castillo is a 68 [address] Per Dr. Clemente's previous note: H/o refractory anemia who present with an elevation PSA. He saw urology, Dr. Varghese on April 10 and subsequent prostate biopsy on April 19 2021. MRI prostate showed cancer of prostate with capsular invasion some likely metastases to the pelvic bone region. His bone scan subsequently confirmed metastatic disease. Biopsy of prostate confirmed Rasheed 7, prostate cancer. He started androgen deprivation therapy with leuprolidse acetate 45 mg, abiraterone/pred, & denosumab 120 mg monthly on 04/26/2021 for metastatic (M1) prostate cancer. Current treatment: Zytiga and prednisone Leuprolide acetate 45 mg every 6 months & denosumab 120 mg monthly Here for follow up reviewed history Prostate cancer, PSA undetectable On zytiga 2 years Chronic anemia, worse today Bone marrow biopsy in 2020 was normal. CrCl 54 More anemic. Notes no bleeding, no dark stool. We note microcytic indices with previously demonstrated normal iron levels. Hgb electrophoresis negative. Feel poorly after each aranesp CLINICAL IMPRESSION: Prostate cancer under good control, today's PSA pending. More anemic CKD grade 3a RECOMMENDATION/PLAN: 1. Anemia, ?renal effect 2. Continue zytiga pred 3. Lupron as scheduled 4. D/c danosumab as he's been on it 3 years 5. Hold aranesp recheck cbc 1 month when he returns for his lupron Written and verbal health teaching given to patient, patient verbalizes understanding and agrees with treatment plan. PAST MEDICAL HISTORY Diagnosis Date Abdominal pain, left lower quadrant Actinic keratosis Allergic rhinitis, cause unspecified Allergic rhinitis Arthritis Benign neoplasm of rectum and anal canal BPH (benign prostatic hyperplasia) Elevated PSA Dr Mckeon Family history of malignant neoplasm of prostate 02/13/2017 Gastroesophageal reflux disease with esophagitis 10/09/2016 History of squamous cell carcinoma of skin 06/2017 left frontal scalp Iron deficiency anemia, unspecified Prostate cancer (HCC) Dr. 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 Seborrheic keratosis Vasovagal reaction 10/09/2016 PAST SURGICAL HISTORY Procedure Laterality Date COLONOSCOPY 02/27/2022 COLONOSCOPY FLX DX W/COLLJ SPEC WHEN PFRMD 10/2006 Colonoscopy COLONOSCOPY FLX DX W/COLLJ SPEC WHEN PFRMD 03/06/2012 Colonoscopy COLONOSCOPY FLX DX W/COLLJ SPEC WHEN PFRMD 02/10/2017 5 year repeat DIAGNOSTIC ARTHROSCOPY SHOULDER +- SYNOVIAL BX Right 10/11/2016 Right shoulder arthroscopic rotator cuff debridement, biceps tenotomy EGD 02/27/2022 ESOPHAGOGASTRODUODENOSCOPY TRANSORAL DIAGNOSTIC 03/10/2008 EGD ESOPHAGOGASTRODUODENOSCOPY TRANSORAL DIAGNOSTIC 02/26/2016 EGD FRACTURE SURGERY PAST SURGICAL HISTORY OF right wrist surgery PAST SURGICAL HISTORY OF 10/05/2002 right carpal tunnel PAST SURGICAL HISTORY OF 10/19/2002 left carpal tunnel RECONSTRUCTION ROTATOR CUFF AVULSION CHRONIC Right 10/11/2016 Right shoulder subacromial decompression TONSILLECTOMY HX TONSILLECTOMY PRIMARY/SECONDARY <AGE 12 Tonsillectomy FAMILY HISTORY Problem Relation Age of Onset Arthritis Mother Prostate Cancer Father Dx late 70s/80s, metastatic Colon Cancer Sister Dx late 50s No Known Problems Sister Heart Attack Maternal Grandfather Prostate Cancer Paternal Uncle Metastatic Prostate Cancer Paternal cousin Two paternal 1st cousins (brothers to each other), sons of the uncle with cancer Social History Tobacco Use Smoking status: Former Packs/day: 0.25 Years: 2.50 Additional pack years: 0.00 Total pack years: 0.63 Types: Cigarettes Quit date: 07/13/1973 Years since quittin.6 Smokeless tobacco: Never Vaping Use Vaping Use: Never used Substance Use Topics Alcohol use: Not Currently Alcohol/week: 6.0 standard drinks of alcohol Types: 6 Cans of Beer (12oz) per week Comment: occasionally Drug use: No ALLERGIES: ALLERGIES Allergen Reactions Envirornmental [Oth* Intolerance CURRENT OUTPATIENT MEDICATIONS: predniSONE (DELTASONE) 5 mg tablet^Take 1 tablet by mouth two times a day.^Disp: 60 tablet^Rfl: 2 abiraterone 250 mg tablet^TAKE 4 TABLETS (1,000MG) BY MOUTH ONCE DAILY ON AN EMPTY STOMACH 1 HOUR BEFORE OR 2 HOURS AFTER A MEAL^Disp: 120 tablet^Rfl: 5 tamsulosin (FLOMAX) 0.4 mg^TAKE 1 CAPSULE BY MOUTH EVERY DAY^Disp: 90 capsule^Rfl: 5 cimetidine (TAGAMET) 200 mg tablet^Take 200 mg by mouth twice daily.^Disp: ^Rfl: calcium carbonate/vitamin D3 (CALCIUM + D ORAL)^Take 1 tablet by mouth twice daily.^Disp: ^Rfl: leuprolide acetate (ELIGARD SUBCUTANEOUS)^Inject subcutaneously once every 6 months.^Disp: ^Rfl: denosumab (XGEVA SUBCUTANEOUS)^Inject subcutaneously once every month.^Disp: ^Rfl: iv contrast (will be provided with radiology test)^MRI Prostate Inject, intravenously, once for 1 dose. No IV access, insert saline lock prior to the beginning of sedation, infusion, injection of imaging exam. Discontinue saline lock post exam. If Pt. has a central line or IVAD, may access for administration according to line specific nursing protocol. Once exam is complete flush line and de-access according to line specific nursing protocol in the MR contrast administration guidelines link.^Disp: 1 Each^Rfl: 0 REVIEW OF SYSTEMS: GENERAL: No fever, night sweats, weight loss or malaise. All other reviewed and negative other than HPI. PHYSICAL EXAMINATION: VITAL SIGNS: BP 129/79 Pulse 80 Temp 97.8 Wt 160 lb 8 oz (72.8kg) GENERAL APPEARANCE: Well appearing, in no acute distress, alert and oriented x3, well-hydrated, well nourished. I spent a total of 30 minutes on the date of the service which included preparing to see the patient, [id number] patient care, completing clinical documentation, obtaining and/or reviewing separately obtained history, counseling and educating the patient/family/caregiver, ordering medications, tests, or procedures, independently interpreting results (not separately reported), and communicating results to the patient/family/caregiver. Electronically Signed: Dereje Herring MD August 11, 2024 documented in this encounter [facility] 08-11-2024 Note [facility] 08-09-2024 Instructions SoloCandace prado APRN.CNP - 08/09/2024 3:58 PM EDT PLAN AND RECOMMENDATIONS: Echocardiogram Bone broth Follow up 1 year CONTACT INFORMATION: Candace Guerra APRN.CNP Cardiology Nurse Practitioner Section of Regional Cardiology [facility] Dept of Cardiovascular Medicine [facility] [place] [address] [address] Office Office documented in this encounter [facility] 08-09-2024 Note [facility] 08-09-2024 History of Present illness Narrative Images from the original note were not included. [facility] [place] jenelle Bustos [facility] Department of Cardiovascular Medicine SECTION OF CLINICAL CARDIOLOGY OUTPATIENT VISIT DATE August 09, 2024 OUTPATIENT VISIT TYPE ESTABLISHED PRIMARY CARE PHYSICIAN: Arsalan Ocampo [address] [place] [address] REFERRING PHYSICIAN: Dorcas Champagne [address] [facility] [address] CHIEF COMPLAINT: Follow Up (DX: SOB, Chest pain/Established Cardiology Patient (??)/Dr Champagne Referral?/EKG Today/Stress 11/12/23/ECHO 07/03/23/Stress 06/17/23) HISTORY OF PRESENT ILLNESS: Mr. Castillo is a 69 year old male with PMH of stage IV prostate cancer, hyperlipidemia, prostate cancer, GERD, chronically abnormal EKG, who presents today with his for a cardiovascular medicine follow-up visit he saw Dr. Champagne in October. At that time he had a stress test ordered which was negative for any scar or ischemia. Low risk scan. Shortness of breath with Aranesp and sometimes when he exerts himself. Has stage 4 prostate cancer, On Aranesp, and every time he gets his infusion/injection he gets shortness of breath. He denies chest pain, palpitations, dizziness, lightheadedness, lower extremity edema, PND, orthopnea, presyncope, syncope, or claudication symptoms Subjective PAST MEDICAL HISTORY Diagnosis Date Abdominal pain, left lower quadrant Actinic keratosis Allergic rhinitis, cause unspecified Allergic rhinitis Arthritis Benign neoplasm of rectum and anal canal BPH (benign prostatic hyperplasia) Elevated PSA Dr Mckeon Family history of malignant neoplasm of prostate 02/13/2017 Gastroesophageal reflux disease with esophagitis 10/09/2016 History of squamous cell carcinoma of skin 06/2017 left frontal scalp Iron deficiency anemia, unspecified Prostate cancer (HCC) Dr. 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 Seborrheic keratosis Vasovagal reaction 10/09/2016 PAST SURGICAL HISTORY Procedure Laterality Date APPENDECTOMY 02/05/2024 [facility] COLONOSCOPY 02/27/2022 COLONOSCOPY FLX DX W/COLLJ SPEC WHEN PFRMD 10/2006 Colonoscopy COLONOSCOPY FLX DX W/COLLJ SPEC WHEN PFRMD 03/06/2012 Colonoscopy COLONOSCOPY FLX DX W/COLLJ SPEC WHEN PFRMD 02/10/2017 5 year repeat DIAGNOSTIC ARTHROSCOPY SHOULDER +- SYNOVIAL BX Right 10/11/2016 Right shoulder arthroscopic rotator cuff debridement, biceps tenotomy EGD 02/27/2022 ESOPHAGOGASTRODUODENOSCOPY TRANSORAL DIAGNOSTIC 03/10/2008 EGD ESOPHAGOGASTRODUODENOSCOPY TRANSORAL DIAGNOSTIC 02/26/2016 EGD FRACTURE SURGERY PAST SURGICAL HISTORY OF right wrist surgery PAST SURGICAL HISTORY OF 10/05/2002 right carpal tunnel PAST SURGICAL HISTORY OF 10/19/2002 left carpal tunnel RECONSTRUCTION ROTATOR CUFF AVULSION CHRONIC Right 10/11/2016 Right shoulder subacromial decompression TONSILLECTOMY HX TONSILLECTOMY PRIMARY/SECONDARY <AGE 10 Tonsillectomy Social History Tobacco Use Smoking status: Former Current packs/day: 0.00 Average packs/day: 0.3 packs/day for 2.5 years (0.6 ttl pk-yrs) Types: Cigarettes Start date: 01/13/1971 Quit date: 07/13/1973 Years since quittin.1 Smokeless tobacco: Never Vaping Use Vaping status: Never Used Substance Use Topics Alcohol use: Not Currently Alcohol/week: 6.0 standard drinks of alcohol Types: 6 Cans of Beer (12oz) per week Comment: occasionally Drug use: No FAMILY HISTORY Problem Relation Age of Onset Arthritis Mother Prostate Cancer Father Dx late 70s/80s, metastatic Colon Cancer Sister Dx late 50s No Known Problems Sister Heart Attack Maternal Grandfather Prostate Cancer Paternal Uncle Metastatic Prostate Cancer Paternal cousin Two paternal 1st cousins (brothers to each other), sons of the uncle with cancer ALLERGIES: ALLERGIES Allergen Reactions Ragweed Pollen Other: See Comments Watering/itchy eyes MEDICATIONS: predniSONE (DELTASONE) 5 mg tablet Take 1 tablet by mouth two times a day. scopolamine (TRANSDERM-SCOP) patch 1.5 mg/72 hr (delivers 1 mg over 3 days) Apply 1 Patch as directed every 72 hours. abiraterone 250 mg tablet TAKE 4 TABLETS ONCE DAILY ON AN EMPTY STOMACH 1 HOUR BEFORE OR 2 HOURS AFTER A MEAL atorvastatin (LIPITOR) 20 mg tablet Take 1 tablet by mouth daily at bedtime. For cholesterol. dexAMETHasone (DECADRON) 4 mg tablet Take 1 tablet by mouth daily with breakfast. Take on mornings of injections tamsulosin (FLOMAX) 0.4 mg Take 1 capsule by mouth once daily. darbepoetin dagmar in albumn john (ARANESP INJECTION) by INJECTION(UNSPECIFIED PARENTERAL ROUTES) route every 4 weeks. PRN cimetidine (TAGAMET) 200 mg tablet Take 200 mg by mouth twice daily. calcium carbonate/vitamin D3 (CALCIUM + D ORAL) Take 1 tablet by mouth twice daily. leuprolide acetate (ELIGARD SUBCUTANEOUS) Inject subcutaneously once every 6 months. denosumab (XGEVA SUBCUTANEOUS) Inject subcutaneously once every month. iv contrast (will be provided with radiology test) MRI Prostate Inject, intravenously, once for 1 dose. No IV access, insert saline lock prior to the beginning of sedation, infusion, injection of imaging exam. Discontinue saline lock post exam. If Pt. has a central line or IVAD, may access for administration according to line specific nursing protocol. Once exam is complete flush line and de-access according to line specific nursing protocol in the MR contrast administration guidelines link. REVIEW OF SYSTEMS: CARD: See HPI GENERAL: Negative for: Weight loss or gain, Fever and/or Chills HEENT: Negative for: Headache, Impaired Vision, Glasses, Hearing Impairment, Ringing in Ears, Nosebleeds, Bleeding Gums NECK: Negative for: Swelling, Pain, Stiffness RESPIRATORY: Negative for: Cough, Blood in Sputum, Shortness of breath, Wheezing, Apnea GASTROINTESTINAL: Negative for: Nausea, Vomiting, Diarrhea, Blood in stool, or Dark black stools MUSCULOSKELETAL: Negative for: Muscle or joint pain, Stiffness , Joint swelling NEUROLOGIC: Negative for: focal numbness/weakness, headaches, visual changes, ataxia, speech/language loss HEMATOLOGICAL/LYMPHATIC: Negative for: Easy bruising , Easy bleeding Objective PHYSICAL EXAMINATION: Ht 168 cm (5' 6.14) BMI 24.27 kg/m General: Well appearing, in no acute distress. Skin: No clubbing, no cyanosis. Eyes: Extra ocular movements intact Oropharynx: Teeth in good repair. Neck: No jugular venous distention, no carotid bruits, carotids have a normal upstroke. Lungs: Clear to auscultation bilaterally, no wheezing or rhonchi. Heart: Regular rhythm, S1, S2 normal, no murmur. No peripheral edema . Grade 2/4 distal pulses bilaterally. Abdomen: Soft, nontender, bowel sounds normal, no bruits. Neuro: Oriented to person, place and time, alert, cooperative, gait coordinated. CARDIOVASCULAR MEDICINE TESTING: Electrocardiogram: Sinus rhythm left axis deviation, T wave inversion V1, II and III 95 bpm, no change in EKG from previous Last ECHO Result Conclusion ECHO Collected: 07/03/2023 9:39 AM (Final result) Impression: CONCLUSIONS: - Exam indication: Shortness of Breath - The left ventricle is normal in size. Left ventricular systolic function is normal. EF = 55 5% (2D biplane) Grade I left ventricular diastolic dysfunction. - The right ventricle is normal in size. Right ventricular systolic function is normal. - There are no significant valvular abnormalities. - Exam was compared with the prior echocardiographic exam performed on 12/08/2013 * * * Final * * * Last EKG Result Conclusion ECG COMPLETE Collected: 08/09/2024 3:29 PM (Preliminary result) Impression: NORMAL SINUS RHYTHM LEFT AXIS DEVIATION ANTERIOR T WAVE ABNORMALITY ABNORMAL ECG I have personally reviewed the Electrocardiogram. I personally interviewed, confirmed and edited the above information if obtained by others. Conclusion: (E55.9) Vitamin D deficiency (primary encounter diagnosis) Comment: Check labs Plan: VITAMIN D 25 HYDROXY (E61.1) Iron deficiency Comment: Check labs Plan: IRON AND TIBC, FERRITIN (R06.02) SOB (shortness of breath) Comment: Given his chemotherapy and treatments recently, will check echo Plan: ECHO (E78.2) Mixed hyperlipidemia Comment: Last LDL 2022 Plan: Check labs PLAN AND RECOMMENDATIONS: Echocardiogram Bone broth Follow up 1 year CONTACT INFORMATION: Candace Guerra APRN.DIRECTOR OF HEALTH CARE MARKETING Cardiology Nurse Practitioner Section of Regional Cardiology [facility] Dept of Cardiovascular Medicine [facility] [place] [address] [place] [address] Office Office This note was partially generated using [employer] voice recognition system and may contain errors related to that system including grammar, punctuation, spelling, and words that may be inappropriate documented in this encounter [facility] 07-14-2024 Note [facility] 07-14-2024 History of Present illness Narrative Patient here for injection of Xgeva, given SQ in right arm. Pt denies any jaw or tooth pain. Also given Aranesp given SQ in left arm. Pt tolerated well. Lorin Zhang LPN documented in this encounter [facility] 07-07-2024 History of Present illness Narrative PROCEDURE FOLLOW UP PATIENT ID CONFIRMED: YES PATIENT ID VERIFIED BY: Eliana Gayle RN CLINICIAN: Eliana Gayle RN PATIENT RETURNS FOR: suture removal PHOTO TAKEN: Yes PATIENT IS S/P: MOHS surgery FOLLOW UP DIAGNOSIS: SCC Pathology results: NONE DATE OF PROCEDURE: 06/17/2024 SITE LOCATION: right crown scalp WOUND MANAGEMENT: Mohs site with primary closure: Wound has dehisced. Pt states that incision opened up with in the first couple of days, pt doing good wound care BID, pt educated to continue with wound care until area heals in fully. No signs of infection, all questions answered. FOLLOW UP: televisit photos in 4 weeks Eliana Gayle RN July 06, 2024 11:12 AM documented in this encounter [facility] 07-07-2024 Note [facility] 07-07-2024 Telephone encounter Note I called and let him know of my discussion with his surgeon, Dr. Bronson. Dr. Bronson confirmed and agreed that permanent section is more reliable reading regarding LVI and PNI. As permanent section is negative for LVI or PNI and final surgical margins were negative, I told the patient that radiation treatment is not indicated. I told him that he needs to have surveillance follow-ups with his rn field case manager and he told me that he will. [facility] Work Phone: 07-07-2024 Miscellaneous Notes I called and let him know of my discussion with his surgeon, Dr. Bronson. Dr. Bronson confirmed and agreed that permanent section is more reliable reading regarding LVI and PNI. As permanent section is negative for LVI or PNI and final surgical margins were negative, I told the patient that radiation treatment is not indicated. I told him that he needs to have surveillance follow-ups with his rn field case manager and he told me that he will. documented in this encounter [facility] 06-24-2024 Note [facility] 06-24-2024 History of Present illness Narrative Radiation Oncology - New Patient/Consult Note PATIENT NAME: Luther Castillo PATIENT REQUESTING PROVIDER: Dr. 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 HPI: 69 year old male who presents with above diagnosis, for an opinion regarding the role of radiation therapy in the management of the patient's disease. Final recommendations will be communicated back to the requesting physician by way of the shared medical record, or letter to requesting physician via US mail. 69 year old man who has metastatic prostate cancer initially diagnosed in 2021 and is being treated with hormonal therapy. His most recent PSA on 05/12/24 was <0.02. He had a scalp skin lesion and was seen by dermatology. He was found to have erythematous scaly slightly tender keratotic papule right crown scalp 2x2 cm [address] Alejandro on 05/04/24. Shave biopsy at that time showed squamous cell carcinoma. He was seen by Dr. Bronson. On his examination, the tumor measured 2.3 cm x 1.8 cm. He underwent Mohs surgery on 06/17/24. The tumor was found to invade subcutis. There was suspicious PNI and LVI. The tumor was removed completely in two stages and he had primary closure. Pathology showed residual invasive well-differentiated squamous cell carcinoma but Perineural invasion and lymphovascular space invasion are not identified. The maximum depth of the transected tumor is 8 mm. ALLERGIES Allergen Reactions Ragweed Pollen Other: See Comments Watering/itchy eyes Current Outpatient Medications on File Prior to Visit Medication Sig predniSONE (DELTASONE) 5 mg tablet Take 1 tablet by mouth two times a day. abiraterone 250 mg tablet TAKE 4 TABLETS ONCE DAILY ON AN EMPTY STOMACH 1 HOUR BEFORE OR 2 HOURS AFTER A MEAL atorvastatin (LIPITOR) 20 mg tablet Take 1 tablet by mouth daily at bedtime. For cholesterol. dexAMETHasone (DECADRON) 4 mg tablet Take 1 tablet by mouth daily with breakfast. Take on mornings of injections tamsulosin (FLOMAX) 0.4 mg Take 1 capsule by mouth once daily. darbepoetin dagmar in albumn john (ARANESP INJECTION) by INJECTION(UNSPECIFIED PARENTERAL ROUTES) route every 4 weeks. PRN cimetidine (TAGAMET) 200 mg tablet Take 200 mg by mouth twice daily. calcium carbonate/vitamin D3 (CALCIUM + D ORAL) Take 1 tablet by mouth twice daily. leuprolide acetate (ELIGARD SUBCUTANEOUS) Inject subcutaneously once every 6 months. denosumab (XGEVA SUBCUTANEOUS) Inject subcutaneously once every month. scopolamine (TRANSDERM-SCOP) patch 1.5 mg/72 hr (delivers 1 mg over 3 days) Apply 1 Patch as directed every 72 hours. iv contrast (will be provided with radiology test) MRI Prostate Inject, intravenously, once for 1 dose. No IV access, insert saline lock prior to the beginning of sedation, infusion, injection of imaging exam. Discontinue saline lock post exam. If Pt. has a central line or IVAD, may access for administration according to line specific nursing protocol. Once exam is complete flush line and de-access according to line specific nursing protocol in the MR contrast administration guidelines link. No current facility-administered medications on file prior to visit. PAST MEDICAL HISTORY Diagnosis Date Abdominal pain, left lower quadrant Actinic keratosis Allergic rhinitis, cause unspecified Allergic rhinitis Arthritis Benign neoplasm of rectum and anal canal BPH (benign prostatic hyperplasia) Elevated PSA Dr Mckeon Family history of malignant neoplasm of prostate 02/13/2017 Gastroesophageal reflux disease with esophagitis 10/09/2016 History of squamous cell carcinoma of skin 06/2017 left frontal scalp Iron deficiency anemia, unspecified Prostate cancer (HCC) Dr. 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 No PAST SURGICAL HISTORY Procedure Laterality Date APPENDECTOMY 02/05/2024 [facility] COLONOSCOPY 02/27/2022 COLONOSCOPY FLX DX W/COLLJ SPEC WHEN PFRMD 10/2006 Colonoscopy COLONOSCOPY FLX DX W/COLLJ SPEC WHEN PFRMD 03/06/2012 Colonoscopy COLONOSCOPY FLX DX W/COLLJ SPEC WHEN PFRMD 02/10/2017 5 year repeat DIAGNOSTIC ARTHROSCOPY SHOULDER +- SYNOVIAL BX Right 10/11/2016 Right shoulder arthroscopic rotator cuff debridement, biceps tenotomy EGD 02/27/2022 ESOPHAGOGASTRODUODENOSCOPY TRANSORAL DIAGNOSTIC 03/10/2008 EGD ESOPHAGOGASTRODUODENOSCOPY TRANSORAL DIAGNOSTIC 02/26/2016 EGD FRACTURE SURGERY PAST SURGICAL HISTORY OF right wrist surgery PAST SURGICAL HISTORY OF 10/05/2002 right carpal tunnel PAST SURGICAL HISTORY OF 10/19/2002 left carpal tunnel RECONSTRUCTION ROTATOR CUFF AVULSION CHRONIC Right 10/11/2016 Right shoulder subacromial decompression TONSILLECTOMY HX TONSILLECTOMY PRIMARY/SECONDARY <AGE 12 Tonsillectomy FAMILY HISTORY Problem Relation Age of Onset Arthritis Mother Prostate Cancer Father Dx late 70s/80s, metastatic Colon Cancer Sister Dx late 50s No Known Problems Sister Heart Attack Maternal Grandfather Prostate Cancer Paternal Uncle Metastatic Prostate Cancer Paternal cousin Two paternal 1st cousins (brothers to each other), sons of the uncle with cancer Social History Tobacco Use Smoking status: Former Current packs/day: 0.00 Average packs/day: 0.3 packs/day for 2.5 years (0.6 ttl pk-yrs) Types: Cigarettes Start date: 01/13/1971 Quit date: 07/13/1973 Years since quittin.9 Smokeless tobacco: Never Vaping Use Vaping status: Never Used Substance Use Topics Alcohol use: Not Currently Alcohol/week: 6.0 standard drinks of alcohol Types: 6 Cans of Beer (12oz) per week Comment: occasionally Drug use: No COMPLETE REVIEW OF SYSTEMS: GENERAL: feeling well without fatigue, no recent change in weight HEENT: denies ROBLEDO, change in hearing or vision, no other ENT complaints NECK: denies swelling or pain in neck RESPIRATORY: shortness of breath with exertion. CARDIOVASCULAR: no chest pain, no palpitations GI: normal appetite, tolerating PO well, BMs normal, and no abdominal pain : frequency and on Flomax. MUSCULOSKELETAL: denies any painful or swollen joints, no muscle aches SKIN: no rash HEMATOLOGY/LYMPHOLOGY: negative for prolonged bleeding, no swollen lymph nodes NEURO: no numbness or paresthesias and no weakness of the extremities PHYSICAL EXAM: VS: BP 114/74 Pulse 97 Temp 36.2 C (97.2 F) (Temporal) Resp 14 Wt 68.7 kg (151 lb 8 oz) SpO2 98% BMI 24.35 kg/m KPS: 100 General Appearance: Alert and oriented. No acute distress. HEENT: NCAT. Sclera anicteric. EOMI. Neck: Normal ROM. Chest: No respiratory distress. Musculoskeletal: Normal ROM in extremities. Neuro: Speech fluent. Gait normal. No focal deficits. Hematologic: No signs of active bleeding. RADIOLOGY/LABORATORY DATA: see HPI ASSESSMENT AND PLAN: 69 year old man with stage II, pT2, squamous cell carcinoma of the scalp skin s/p Mohs surgery. There was suspicion of intravascular invasion at the time of Mohs surgery but on permanent section, there was no perineural invasion nor lymphovascular space invasion. I will discuss with Dr. Bronson about findings of permanent section. Thank you very much for allowing us to participate in his care. Signed by: Suresh Hodges MD cc: Arsalan Ocampo [address] [place] [address] [facility]elaine Bronson [address] [facility] [address] Rad[facility] Therapy - Nursing Note (Consult) PATIENT NAME: Luther Castillo PATIENT June 24, 2024 [facility] FACILITY/LOCATION: [place] Chief Complaint: consult Reason for visit: Consult. Referring physician: Internal provider Dr Prieto Subjective Data: see pain assessment Additional Data Do you want to see a Metal Or Wood Blocker? No Are you interested in information about fertility? No Status: Patient is male Stress Scale: On a scale of 0 to 10, what number best describes how much distress you have experienced in the past week?(0 being no distress and 10 being extreme distress) 2 Social work notified: no SIGNED by: Mercedez Maldonado RN documented in this encounter [facility] 06-24-2024 Note [facility] 06-17-2024 Telephone encounter Note Patient returned call and scheduled 06/24 Chelsea Copeland [facility] 06-17-2024 Miscellaneous Notes Patient returned call and scheduled 06/24 Chelsea Copeland 1st attempt. Message left for patient to contact office to schedule consult with Dr. Hodges. 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 Deysi Valdivia in [place] documented in this encounter [facility] 06-17-2024 Telephone encounter Note 1st attempt. Message left for patient to contact office to schedule consult with Dr. Hodges. 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 Deysi Valdivia in [facility] Work Phone: 06-17-2024 Instructions Yanet Cardoso RN - 06/17/2024 11:18 AM EDT SURGICAL WOUND CARE 1. Keep the wound dry and covered for the first -48------ hours. 2. It may be advised to sleep with your head elevated on 1 to 2 pillows to decrease Swelling and applying an ice pack to surgical site and surrounding area for 10-15 minutes every 2 hours. 3. Remove the bandage on ___Friday afternoon after wetting the dressing for gentler removal of the tape . 4. Cleanse over the stitches with a mild soap and water, rinse off and pat dry The goal is to remove any dried blood, scabs, or crust that may have formed over the stitches. You should be able to see all the stitches clearly. 5. Apply a thin film of vaseline of Aquaphor . 6. Do not allow a thick crust or scab to form. Cleansing the wound and applying the ointment twice daily until the wound is healed (or the stitches have been removed) will prevent a scab from forming. 7. The wound care should be done twice daily. 8. After __48 hours, leave the wound open to air. Cover with a bandage only if the area will get dirty or clothing and/or bed linens will rub against and irritate the wound. You may bathe or shower the following day unless otherwise specified by your doctor. 9. Slight redness may occur around the wound edges during healing. Some seepage is normal, however, if pain, swelling, or yellow drainage appears please call us at [phone] ext [phone] or [phone]. 10. Do not take any Aspirin, Advil, Motrin, Aspirin containing products, Vitamin E, or garlic pills for 3 days after surgery. Also, do not drink or smoke for 3 days after surgery. YOU MAY TAKE TYLENOL FOR PAIN. No strenuous activity until the stitches are removed. PAIN: What pain can I expect after surgery? You can expect to have some pain after surgery. This is normal. The pain is typically worse for a day or two after surgery, and quickly begins to get better. Most patients are able to manage their pain after surgery with Ydax-gpo-Lpqfgwo (OTC) medications such as Tylenol (acetaminophen) and Motrin/Advil (ibuprofen). If you have a condition that does not allow you to take either of these medications, please notify us immediately. How will I manage my pain? The best strategy for controlling your pain after surgery is around the clock pain control with Tylenol (acetaminophen) and Motrin/Advil (ibuprofen). Alternating these medications with each other allows you to maximize your pain control. In addition to Tylenol and Motrin, you can use ice packs on your incisions for 20 minutes each hour for the first two days after surgery to help reduce your pain and swelling. After the first two days, you may use a heating pad or warm compress on your incisions and surrounding area. If you have received a graft, please *DO NOT* apply ice directly onto the graft site. How will I alternate my regular strength [id number] pain medication? You will take a dose of pain medication every four hours while you're awake. Start by taking 200-400 mg of Motrin/Advil (ibuprofen) (1-2 pills of 200 mg) 4 hours later, take 500-1000 mg of Tylenol (acetaminophen) (1-2 pills of 500 mg) 4 hours later, take 200-400 mg of Motrin/Advil (ibuprofen) (1-2 pills of 200 mg) 4 hours later, take 500-1000 mg of Tylenol (acetaminophen) (1-2 pills of 500 mg) 4 hours later, take 200-400 mg of Motrin/Advil (ibuprofen) (1-2 pills of 200 mg) We recommend that you follow this schedule [id number] for at least 3 days after surgery, or until you feel that it is no longer needed. As an alternative, you can purchase OTC Advil Dual Action, which is a combined pill containing Acetaminophen 250mg and Ibuprofen 125mg. IMPORTANT: Do not take more than 3000mg of Tylenol (acetaminophen) or 3200mg of Motrin/Advil (ibuprofen) in a 24-hour period. Be aware that some chronic pain medications as well as over the counter cold and flu remedies may also contain acetaminophen. Take this into consideration to avoid exceeding the maximum daily dose. Limit alcohol intake. It is recommended to avoid heavy alcohol intake (more than two standard drinks per day for men and one standard drink for women) after surgery and while taking acetaminophen. Drinking alcohol causes the liver to convert more of the acetaminophen you take into toxic byproducts. Alcohol also acts as a blood thinner and can increase your risk for post-operative bleeding. Continue to take all of your prescribed medication. 11. If you need to have stitches removed, make an appointment to return to the office in ____3 weeks . 12. The stitches will be removed by the NURSE ONLY, unless you have been informed otherwise. 13. If you have had MOHS SURGERY, you will need to come back for a follow-up visit with the nurse or doctor in 6-8 weeks for a wound check. 14. If you had MOHS SURGERY, you should see your referring rn field case manager for a routine skin check every 6 months or on a schedule dictated by your rn field case manager. IN CASE OF BLEEDING In case of persistent bleeding: Apply firm, steady pressure over the dressing with gauze for 20 minutes. If bleeding persists, please apply firm pressure for another 30 minutes. Tip #1: use a timer to record the time of pressure held Tip #2: do not peek at wound until time is completed- this will disrupt clotting time of vessel Tip #3: you may also use ice, as this may aid in slowing any bleeding. If bleeding persists, please call the office using the numbers below. We will instruct you on how to proceed. SUPPLIES All supplies can be purchased at drug stores without a prescription. You do not have to use exactly the same type of dressing that was applied after surgery. Mild soap and water Cotton-tipped swab (Q-tip) Vaseline, Aquaphor, or a recommended antibiotic ointment. Dressing: Bandages, Telfa or other non-stick pads, gauze, Ronnie, tape, etc. (depending on the wound size and shape) PLEASE REMEMBER If you have any questions or concerns, please call the Dermatology Surgery Department to speak to a Nurse at [phone] ext [phone] or [phone] After 5pm, or on weekends and holidays, and ask for the dermatology surgery fellow on site coordinator documented in this encounter [facility] 06-17-2024 History of Present illness Narrative MOHS MICROGRAPHIC OPERATIVE REPORT SERVICE DATE: 06/17/2024 SERVICE TIME: 8:50 AM LOCATION: [place]:[facility],[id number] REFERRING PROVIDER: Richie Dejesus (Iris) [address] [facility] [id number] PROCEDURE START TIME: 858 am PROCEDURE END TIME: 11:16 AM SURGEON: Dr. Madelaine Bronson FELLOW: Dr. Ryan Montaño REGISTERED NURSE: Yanet Cardoso RN ANTICOAGULANTS: None IMPLANTED DEVICES: None ANTIBIOTIC PROPHYLAXIS: Not required TRANSPLANT PATIENT: No PHOTOS: Photos taken VERIFICATION OF PROCEDURE: Procedure to be Performed: Mohs Surgery Patient Verified By: Name and Date of Site(s) Confirmed: Patient confirmed site from image in the EMR. Patient used mirror(s) to identify site(s). Patient verbalized agreement of surgical site(s). Site(s) Marked: Provider marking the site with patient involvement. Relevant documentation, images, implants or special equipment present: Yes SIGN IN COMMUNICATION: Completed Time Out: Team Confirms the Correct Patient, Correct Procedure, Correct Site(s) and Site Marked, Correct Position (if applicable). Time: 9:20 AM Affirmation of Time Out: Yes Sign out Discussion: Completed UNIVERSAL PROTOCOL / SAFETY CHECKLIST Procedure to be Performed: MOHS Sign In: A Moment of CARE was completed. Appropriate PPE (Personal Protective Equipment) worn by all providers involved with the procedure. Special equipment not required. Patient/Surrogate Stated/Verified: Patient name, Date of , Relevant allergies, and The intended procedure Time Out: Relevant labs, photos, and/or imaging studies have been reviewed. Intended patient and procedure match the source document(s) (e.g. consent, H&P, associated studies [imaging, pathology]) match the intended patient and procedure. Consent obtained and matches the intended procedure. Yes. Correct side/site has been marked and visible. Medications required for this procedure are verified. Fire risk assessed and is not applicable. Implants: are not applicable. Sign Out: Specimens are all correctly labeled and sent. All instruments, equipment, possible retained foreign bodies are accounted for. Yes. The post-procedure plan of care has been communicated to the patient or surrogate. LESION #1 Preoperative Diagnosis: SCC of the right crown scalp Tumor Type: Primary Path Report Available at Bedside: Inside pathology report # [id number], Date of Biopsy: 05/04/2024, and Biopsy Performed By: Dr. Dejesus Pre-op Size: Greater than 2 cm, (2.3cm X 1.8cm) Lymphadenopathy: None Indication for Mohs: Anatomic Location where lesion is prone to recur, Type of tumor, Rapid growth, Size, Patient is immunosuppressed, and Ill-defined borders Location: Area M: (Includes Cheeks, Forehead, Scalp, Neck, Jawline and Pretibial Surface) Preparation: Chlorhexidine LAYER A The patient was positioned, prepped with alcohol and draped in the usual manner. Anesthesia was obtained with local infiltration. A 1-2 mm rim of tissue was marked circumferentially around the defect. The area thus outlined was excised deep to the subcutis. Hemostasis was achieved with electrocautery. The specimen was oriented, subdivided into 2 sections, chromacoded and submitted for horizontal frozen sections. The patient tolerated the procedure well and no complications were noted. Upon review of the horizontal frozen sections for Layer A, residual SCC was identified in pieces A1, A2 Depth of Invasion:subcutis Perineural invasion: Yes LVI: Yes . MODERATELY DIFFERENTIATED INVASIVE SQUAMOUS CELL CARCINOMA: Arising from the epidermis is a proliferation of atypical keratinocytes with mitoses. Invasion into the dermis is noted. In areas the tumor is keratin producing and in other areas the tumor is less well differentiated. Non- marginal tissue sent for permanence to r/o PNI, LVI. Suspicious for intravascular involvement LAYER B A 1-2 mm rim of tissue was marked to encompass the positive margins noted in the frozen section. The area thus outlined was excised deep to the galea. Hemostasis was achieved with electrocautery. The specimen was oriented, subdivided into 1 sections, chromacoded and submitted for horizontal frozen sections. The patient tolerated the procedure well and no complications were noted. Upon review of the horizontal frozen sections for Layer B, no residual tumor was identified in piece B1 . CLOSURE Rationale for Primary Closure: Given the location and size of the defect and in order to minimize the pain, bleeding, and infection associated with second intention healing, the wound was closed with a primary linear closure. Diagnosis: Surgical defect secondary to Mohs micrographic surgery on a Primary tumor type from the right crown scalp (location of tumor). Post-op Defect Size: 2.3 x 1.8cm COMPLEX CLOSURE: Requiring skin and subcutaneous fat and retention sutures. The beveled edge of the Mohs defect was surgically removed. The wound edges were broadly undermined in all directions to decrease the tension of the wound and facilitate skin edge apposition. Meticulous hemostasis was achieved with electrocautery. Redundant standing cones were removed to allow the wound to be closed without distortion. The deep tissue were opposed with 4-0 Absorbable Absorbant sutures. The epidermal edges were opposed with 4-0 Absorbable sutures. The surgical site was cleansed with saline and covered with a bandage as below. The patient tolerated the procedure well and no complications were noted. Final Size: Linear closure - 4.5 cm SCC Staging 8th Edition AJCC Risk Factors: No risk factors (depth of tumor noted to be at subcutaneous fat) Final stage T2 Tumor > 2 cm in greatest dimension but < 4cm with no high risk factors based on the 8th edition AJCC guidelines for non-ocular SCC of head and neck. [facility] Risk Factors: tumor diameter greater than or equal to 2 cm (depth of tumor noted to be at subcutaneous fat) Final stage T2a - 1 high-risk factor. Based on the [facility] guidelines. LOCAL ANESTHETIC: 4cc 1% Lidocaine HCl with Epinephrine 1:100,000 ESTIMATED BLOOD LOSS: Less Than Minimal Unless Noted Here. COMPLICATIONS: None, patient tolerated procedure well. 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 Mohs blocks sent for permanent pathology to assess for LVI/PNI. Patient will be seen in [place] by Dr. Hodges for radiation consultation. The documentation for this note was completed by Yanet Cardoso RN acting as scribe for Madelaine Bronson MD. June 17, 2024 11:45 AM. Ryan Montaño MD served as a fellow in this procedure and in procurement of layers and final repair. Ryan Montaño MD Dermatology, PGY-5 I/primary surgeon/proceduralist performed the procedure with assistance. Fellow present under direct supervision and the remainder of the procedure was performed by the primary surgeon/proceduralist with assistance. I/primary surgeon/proceduralist reviewed the specimen(s) and worked as the pathologist. I have seen and examined the patient. I have discussed the case and the management of this patient's care with the Fellow. I also have reviewed and agree with the assessment and plan as stated above and agree with all of its relevant components. I was present for and supervised the encounter/procedures as documented above by the Fellow. I was physically present during the critical portion(s) of this encounter/procedure. I agree with the clinical/operative note independently gathered by the clinical production support engineer and Fellow and the remaining scribed note accurately describes my personal service to the patient. Madelaine Bronson MD documented in this encounter [facility] 06-17-2024 Note [facility] 06-16-2024 Note [facility] 06-16-2024 History of Present illness Narrative Patient here for injection of Aranesp given SQ in left arm and Xgeva given SQ in right arm. Patient tolerated well. Lorin Zhang LPN documented in this encounter [facility] 05-18-2024 Telephone encounter Note Refill req received for Prednisone. Next OV here 08/11/24 Lorin Zhang LPN [facility] 05-18-2024 Miscellaneous Notes Refill req received for Prednisone. Next OV here 08/11/24 Lorin Zhang LPN documented in this encounter [facility] 05-13-2024 Telephone encounter Note Prescription Refill Information The patient has been identified by name and date of : Yes Caregiver verified no other encounters exist for this prescription request: Yes Caregiver confirmed with patient/requestor that no other refills are due, in the near future, with this provider at this time: Yes The last office visit in the department: 01/21/2024 Does the patient have a future office visit with this provider/department: Yes Requested Prescriptions Pending Prescriptions Disp Refills predniSONE (DELTASONE) 5 mg tablet [Pharmacy Med Name: PREDNISONE 5MG TABLETS] 60 tablet 2 Sig: TAKE 1 TABLET BY MOUTH TWICE DAILY Abigail Ferrer LPN May 13, 2024 7:54 AM [facility] 05-13-2024 Miscellaneous Notes Prescription Refill Information The patient has been identified by name and date of : Yes Caregiver verified no other encounters exist for this prescription request: Yes Caregiver confirmed with patient/requestor that no other refills are due, in the near future, with this provider at this time: Yes The last office visit in the department: 01/21/2024 Does the patient have a future office visit with this provider/department: Yes Requested Prescriptions Pending Prescriptions Disp Refills predniSONE (DELTASONE) 5 mg tablet [Pharmacy Med Name: PREDNISONE 5MG TABLETS] 60 tablet 2 Sig: TAKE 1 TABLET BY MOUTH TWICE DAILY Abigail Ferrer LPN May 13, 2024 7:54 AM documented in this encounter [facility] 05-12-2024 Note [facility] 05-12-2024 History of Present illness Narrative Patient here for injection of Xgeva and Aranesp. Given SQ in left and right arm, respectively. Patient tolerated well. Lorin Zhang LPN documented in this encounter [facility] 05-12-2024 Note HNO ID: [id number] Author: ENDY CURRAN PT Service: ? Author Type: Physical Therapist Type: Progress Notes Filed: 05/12/2024 09:44 Note Text: 05/12/2024 [facility] REHABILITATION AND SPORTS THERAPY PHYSICAL THERAPY DISCONTINUANCE OF CARE Plan of Care Period: Start of Care Date: 01/29/24 Last Visit Date: 04/01/2024 Therapy Program: The following is a summary of the interventions provided for this episode of care; Therapeutic exercise and Patient/Family/Caregiver Education Assessment: The following is the goal status: Goals for Episode of Care: addressed 03/24/2024 Patient reported outcome of physical function will increase T-score by a minimum 5 points. (Increased rating by 7 points since last completed) Patient to be independent in home exercise program for low back ROM and lumbar stabilization and LE strengthening exercises to return patient to prior level of function and reduce L hip pain. (Ongoing. Patient completes daily) Patient will decrease lower back and L LE radicular pain to 0-3/10 at rest and with functional activities to allow patient to improve ambulation, transfers, and standing tolerance for ADLs. (Improving. Average pain level is 2-3 out of 10) Patient will increase active ROM of lumbar spine to minimal to moderate limitation overall to allow pt to improve performance of ADLs. (Improving) Patient will demonstrate increase in trunk, abdominal and bilateral LE strengths to 4+ to 4+-5/5 during manual muscle testing in order to improve function for home management tasks, light functional tasks, and prior functional tasks. (Improving) Perform most home management and ADL tasks with decreased report of symptoms/pain in 4-6 weeks. (Improved. Able to walk for exercise recently [place] [facility]) Patient Goals: To decrease lower back and L hip pain (Improving) Based on the most recent progress report, patient was progressing as expected toward functional goals based on home exercise program compliance, pain levels, and documented subjective information on progress. Reason for Discontinuation of Care: Patient has not returned to therapy or scheduled additional follow-up appointments.Patient was to see Dr. Gualberto Mcmahon on 05/10/2024 and canceled that appointment over MyChart. Plan of Care is completed. Endy Curran PT, DERRICK [facility] 05-04-2024 Instructions Richie Dejesus MD - 05/04/2024 11:40 AM EST CARE INSTRUCTIONS AFTER BIOPSY WITHOUT SUTURES 1.) Keep the area clean and dry with the band-aid in place the day of surgery. 2.) The next day you may bathe or shower as usual. Do not wear a wet band-aid on the wound. 3.) Remove the band-aid daily. Wash gently with soap and water and pat dry. Apply vaseline and cover with a band-aid for 5 days. 4.) Then leave the wound open to air, but continue to apply Vaseline for the next few days or until completely healed (could take 2-3 weeks depending on the size of the biopsy site). 5.) DO NOT USE NEOSPORIN as there is a fairly high incidence of allergic response to this product.. documented in this encounter [facility] 05-04-2024 History of Present illness Narrative Shave biopsy of lesion to establish and confirm diagnosis: UNIVERSAL PROTOCOL / SAFETY CHECKLIST Procedure to be Performed: shave biopsy erythematous scaly slightly tender keratotic papule right crown scalp 2x2 cm Sign In: A Moment of CARE was completed. Personnel directly involved with the procedure wore the appropriate PPE (Personal Protective Equipment). No special equipment needed. Patient/Surrogate Stated/Verified: PATIENT VERIFIED (optional for EMERGENT procedures): Patient name, Date of , Relevant allergies and The intended procedure Time Out Communication: Intended patient and procedure match the source documents. Consent documented and matches the intended procedure. No relevant labs, photos, and/or imaging studies were applicable for review. Correct side/site marked and visible. Medications required for procedure is verified. No fire risk assessment and interventions applicable. No implant(s) inserted. Sign Out: SIGN OUT (optional for EMERGENT procedures): All specimen containers correctly labeled. No instruments, equipment or retained foreign bodies applicable. Post-procedure follow-up management communicated and Plan of Care Visit completed when applicable. Photo taken: Yes Risks, benefits, alternatives and personnel required for shave biopsy reviewed with patient. Patient and provider agree as to site(s) to be biopsied. Patient verbalizes understanding and wishes to proceed. Site(s) prepped with alcohol and anesthetized with 1% lidocaine with epinephrine. Shave biopsy of lesion(s) performed to the level of the dermis/epidermis The following was sent for histologic evaluation: LESION #1 R/O: nmsc LOC OF LESION: right crown scalp SIZE: 2 CM EBL: scant Hemostasis with aluminum chloride and direct pressure, and a bandage is applied Written and verbal wound care instructions provided to patient, understanding verbalized. Richie Dejesus MD RTC ppath documented in this encounter [facility] 05-04-2024 Note [facility] 04-14-2024 Telephone encounter Note Per appt desk, Patient is rescheduled for 05/10/2024 Graciela Khan [facility] 04-14-2024 Miscellaneous Notes Per appt desk, Patient is rescheduled for 05/10/2024 Graciela Khan Due to a change in Dr. Mcmahon's schedule, Patient's appt on 04/28/2024 has been cancelled. Called Patient-no answer. Left voicemail requesting Patient call the [facility] to reschedule. Patient also notified of cancellation via [employer] message. Graciela Khan documented in this encounter [facility] 04-14-2024 Note [facility] 04-14-2024 History of Present illness Narrative Patient presents with: Imm/Inj Pt is identified by name and birthdate: Yes. Allergies and medications reviewed. Latex allergy? No. Does this patient have: Unplanned weight loss or gain of greater than 10 pounds, or a change of appetite over the last year? No Does the patient have any concerns about safety in the home/falls? Not at risk for falls Has the patient fallen in the past year? No Does the patient have difficulty performing or completing routine daily living activities? No Does this patient have concerns about personal safety? No Is patient having pain? Pain: No=0 (pain 0 on a scale of 0-10). Health Maintenance: Reviewed and updated. Does patient have MyChart access or Caregiver proxy: yes Pt/Caregiver willingness and readiness to learn assessed: Yes. Barriers: none Xgeva injection administered, right arm, Aranesp injection administered left, tolerated well, no immediate adverse reactions noted. Abigail Ferrer LPN documented in this encounter [facility] 04-05-2024 Telephone encounter Note Due to a change in Dr. Mcmahon's schedule, Patient's appt on 04/28/2024 has been cancelled. Called Patient-no answer. Left voicemail requesting Patient call the [facility] to reschedule. Patient also notified of cancellation via [employer] message. Graciela Khan [facility] 04-01-2024 Note HNO ID: [id number] Author: ENDY CURRAN PT Service: ? Author Type: Physical Therapist Type: Progress Notes Filed: 04/01/2024 15:26 Note Text: Episode Visit Count: 12 Therapist That Will Accept/Oversee The Plan Of Care: Endy Curran PT, DERRICK Start of Care Date: 01/29/24 Onset Date: 05/08/23 (Flare up since about October 2023) Plan of Care Certification Date: 03/24/24 Next Certification Due Date: 05/07/24 Patient Identified by Name and Date of : Yes REHABILITATION AND SPORTS THERAPY PHYSICAL THERAPY TREATMENT NOTE ASSESSMENT: Luther Castillo tolerated the session with no issues. He demonstrated tolerance to increased repetitions with standing hip exercises and with Shuttle bilateral and single leg presses without difficulty. The patient will continue to benefit from ongoing skilled physical therapy to progress toward set goals. PLAN FOR NEXT VISIT: Will hold chart open up until 05/07/2024 [facility] plan of care. SUBJECTIVE: Patient notes that he does have a little twinge of pain in the L groin at 1-2 out of 10 and that his lower back feels good today. Pain: Pain Pain Level: 1 Pain Location: Low Back/Lumbar Spine - Left Description: Aching Frequency: Walking Pain Level 2: 2 Pain Location 2: Groin - Left Description 2: Aching Frequency 2: Continuous Post Treatment Pain Post Treatment Pain Level: Better OBJECTIVE MEASURES WITH LEVEL OF FUNCTION: No objective measurements taken this date. TREATMENT: Therapeutic Exercise: 2: Supine pelvic tilt with hip add sets 2 x 15 3: Supine pelvic tilt with resisted hip abd with green band 2 x 15 5: Alternating marching 2 x 15 reps in hooklying with green band 6: Heel slides 3# 2 x 15 reps each LE 8: SAQ 3# 2 x 15 reps each LE with 3 sec hold 9: Seated LAQ 3# 2 x 15 reps each LE 10: Resisted knee flexion 2 x 15 reps each LE with 3# and green band 11: Standing marches 3# 2x15 alternating, B (Increased repetitions) 12: Standing hip abduction 3# 2x15, B (Increased repetitions) 13: Shuttle bilateral with wedge 62# 2x15 reps blocked at 90 (Increased reps. in sets) 14: Shuttle single leg with wedge 37# 2 x15 reps, B blocked at 90 (Increased repetitions) 15: Recumbent stepper manual L3 x 7 minutes (not billed) Skilled Intervention: Skilled judgment was used in selection of appropriate interventions. Correct performance of therapeutic exercises was facilitated with verbal and visual cuing. Billing Therapeutic Exercise Treatment Minutes: 50 Skilled Treatment Time Minutes (timed and untimed codes): 50 Total Session Time (minutes): 58 Session Start Time : 1417 Session Stop Time : 1515 Time spent on Recumbent Stepper not included in billed treatment time. Endy Curran, PT, DERRICK [facility] 04-01-2024 History of Present illness Narrative Episode Visit Count: 12 Therapist That Will Accept/Oversee The Plan Of Care: Endy Curran PT, DERRICK Start of Care Date: 01/29/24 Onset Date: 05/08/23 (Flare up since about October 2023) Plan of Care Certification Date: 03/24/24 Next Certification Due Date: 05/07/24 Patient Identified by Name and Date of : Yes REHABILITATION AND SPORTS THERAPY PHYSICAL THERAPY TREATMENT NOTE ASSESSMENT: Luther Castillo tolerated the session with no issues. He demonstrated tolerance to increased repetitions with standing hip exercises and with Shuttle bilateral and single leg presses without difficulty. The patient will continue to benefit from ongoing skilled physical therapy to progress toward set goals. PLAN FOR NEXT VISIT: Will hold chart open up until 05/07/2024 [facility] plan of care. SUBJECTIVE: Patient notes that he does have a little twinge of pain in the L groin at 1-2 out of 10 and that his lower back feels good today. Pain: Pain Pain Level: 1 Pain Location: Low Back/Lumbar Spine - Left Description: Aching Frequency: Walking Pain Level 2: 2 Pain Location 2: Groin - Left Description 2: Aching Frequency 2: Continuous Post Treatment Pain Post Treatment Pain Level: Better OBJECTIVE MEASURES WITH LEVEL OF FUNCTION: No objective measurements taken this date. TREATMENT: Therapeutic Exercise: 2: Supine pelvic tilt with hip add sets 2 x 15 3: Supine pelvic tilt with resisted hip abd with green band 2 x 15 5: Alternating marching 2 x 15 reps in hooklying with green band 6: Heel slides 3# 2 x 15 reps each LE 8: SAQ 3# 2 x 15 reps each LE with 3 sec hold 9: Seated LAQ 3# 2 x 15 reps each LE 10: Resisted knee flexion 2 x 15 reps each LE with 3# and green band 11: Standing marches 3# 2x15 alternating, B (Increased repetitions) 12: Standing hip abduction 3# 2x15, B (Increased repetitions) 13: Shuttle bilateral with wedge 62# 2x15 reps blocked at 90 (Increased reps. in sets) 14: Shuttle single leg with wedge 37# 2 x15 reps, B blocked at 90 (Increased repetitions) 15: Recumbent stepper manual L3 x 7 minutes (not billed) Skilled Intervention: Skilled judgment was used in selection of appropriate interventions. Correct performance of therapeutic exercises was facilitated with verbal and visual cuing. Billing Therapeutic Exercise Treatment Minutes: 50 Skilled Treatment Time Minutes (timed and untimed codes): 50 Total Session Time (minutes): 58 Session Start Time : 1417 Session Stop Time : 1515 Time spent on Recumbent Stepper not included in billed treatment time. Endy Curran PT, MBA documented in this encounter [facility] 03-30-2024 Telephone encounter Note Prescription Refill Information The patient has been identified by name and date of : Yes Caregiver verified no other encounters exist for this prescription request: Yes Caregiver confirmed with patient/requestor that no other refills are due, in the near future, with this provider at this time: Yes The last office visit in the department: 01/21/2024 Does the patient have a future office visit with this provider/department: Yes Requested Prescriptions Pending Prescriptions Disp Refills abiraterone 250 mg tablet [Pharmacy Med Name: ABIRATERONE ACETATE 250 MG TAB] 120 tablet 5 Sig: TAKE 4 TABLETS ONCE DAILY ON AN EMPTY STOMACH 1 HOUR BEFORE OR 2 HOURS AFTER A MEAL Abigail Ferrer LPN March 30, 2024 11:52 AM [facility] 03-30-2024 Miscellaneous Notes Prescription Refill Information The patient has been identified by name and date of : Yes Caregiver verified no other encounters exist for this prescription request: Yes Caregiver confirmed with patient/requestor that no other refills are due, in the near future, with this provider at this time: Yes The last office visit in the department: 01/21/2024 Does the patient have a future office visit with this provider/department: Yes Requested Prescriptions Pending Prescriptions Disp Refills abiraterone 250 mg tablet [Pharmacy Med Name: ABIRATERONE ACETATE 250 MG TAB] 120 tablet 5 Sig: TAKE 4 TABLETS ONCE DAILY ON AN EMPTY STOMACH 1 HOUR BEFORE OR 2 HOURS AFTER A MEAL Abigail Ferrer LPN March 30, 2024 11:52 AM documented in this encounter [facility] 03-24-2024 Note HNO ID: [id number] Author: ENDY CURRAN PT Service: ? Author Type: Physical Therapist Type: Progress Notes Filed: 03/24/2024 17:11 Note Text: Episode Visit Count: 11 Therapist That Will Accept/Oversee The Plan Of Care: Endy Curran PT, DERRICK Start of Care Date: 01/29/24 Onset Date: 05/08/23 (Flare up since about October 2023) Plan of Care Certification Date: 03/24/24 Next Certification Due Date: 05/07/24 Patient Identified by Name and Date of : Yes REHABILITATION AND SPORTS THERAPY PHYSICAL THERAPY PROGRESS REPORT PLAN OF CARE UPDATE: Assessment: Luther Castillo demonstrates improvements in bed mobility, cleaning, dressing, and grooming. The patient has progressed toward goals. Patient continues to present with impairments in ADL's, independence in exercise, overall function, patient reported outcome measures, strength, and symptom management that interfere with standing, walking in the community (Better with standing. 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 L LE with car transfers due to L groin pain.) . Current prognosis is Good due to: current objective clinical presentation, good overall health status, good support system/ coping skills, within-session changes, Prognosis may be limited due to chronic nature of impairments . Patient demonstrates improvement in lumbar ROM, decreased lower back and L groin pain, improving trunk, abdominal and LE strengths and has improved tolerance for longer distance walking since starting therapy. The patient will benefit from continued skilled therapy services to meet the updated goals for this plan of care as noted below. Goals for Episode of Care: addressed 03/24/2024 Patient reported outcome of physical function will increase T-score by a minimum 5 points. (Increased rating by 7 points since last completed) Patient to be independent in home exercise program for low back ROM and lumbar stabilization and LE strengthening exercises to return patient to prior level of function and reduce L hip pain. (Ongoing. Patient completes daily) Patient will decrease lower back and L LE radicular pain to 0-3/10 at rest and with functional activities to allow patient to improve ambulation, transfers, and standing tolerance for ADLs. (Improving. Average pain level is 2-3 out of 10) Patient will increase active ROM of lumbar spine to minimal to moderate limitation overall to allow pt to improve performance of ADLs. (Improving) Patient will demonstrate increase in trunk, abdominal and bilateral LE strengths to 4+ to 4+-5/5 during manual muscle testing in order to improve function for home management tasks, light functional tasks, and prior functional tasks. (Improving) Perform most home management and ADL tasks with decreased report of symptoms/pain in 4-6 weeks. (Improved. Able to walk for exercise recently along [place] in [facility]) Patient Goals: To decrease lower back and L hip pain (Improving) Time Frame for Goals and Treatment : 05/07/24 Planned Interventions, Frequency, and Duration: 2x/week, 5 weeks Total Number of Visits Planned: 10 Patient to be seen for Therapeutic exercise (04339), Manual therapy (75559), Therapeutic activities (71349), Self-penitentiary management (44143), Patient/Family/Caregiver Education, Body Mechanics Training PLAN FOR NEXT VISIT: Continue to progress LE strengthening with increasing repetitions as pt tolerates. SUBJECTIVE: Patient continues to have twinges of pain in the L groin. He rates his L groin pain level at 2-3 out of 10 today. He states that he got 3 injections last Friday and that he was not feeling good until Friday last week. He states that he had limited tolerance for activity into the weekend. He will have a Pain Management appointment with Dr. Gualberto Mcmahon on 04/28/2024. He feels that he is greatly improved since starting therapy and is about 75% improved overall. Functional Limitations: standing, walking in the community (Better with standing. 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 L LE with car transfers due to L groin pain.) Pain: Pain Pain Level: 1 Pain Location: Low Back/Lumbar Spine - Left Description: Aching Frequency: Walking Pain Level 2: (2-3 out of 10) Pain Location 2: Groin - Left Description 2: Aching, Burning Frequency 2: Standing Post Treatment Pain Post Treatment Pain Level: Better PROMIS Scales 03/22/2024 02/24/2024 01/28/2024 Higher is Better Phys Func - Score 38 (moderate dysfunction) 31 (moderate dysfunction) 29 (severe dysfunction) Phys Func - Percentile 12 3 2 Self-Eff Symptom - Score 41 (Average) 30 (Low) 32 (Low) Self-Eff Symptom - Percentile 18 2 4 T-scores: mean of general population = 50. 5 points is clinically meaningfully difference Percentiles provide an indication of how the patient's score ranks in relation to the general population. Higher percentile rankings indicate better function/quality of life. 50th percentile is the avera (more content not included)... [facility] 03-24-2024 History of Present illness Narrative Images from the original note were not included. Episode Visit Count: 11 Therapist That Will Accept/Oversee The Plan Of Care: Endy Curran PT, DERRICK Start of Care Date: 01/29/24 Onset Date: 05/08/23 (Flare up since about October 2023) Plan of Care Certification Date: 03/24/24 Next Certification Due Date: 05/07/24 Patient Identified by Name and Date of : Yes REHABILITATION AND SPORTS THERAPY PHYSICAL THERAPY PROGRESS REPORT PLAN OF CARE UPDATE: Assessment: Luther Castillo demonstrates improvements in bed mobility, cleaning, dressing, and grooming. The patient has progressed toward goals. Patient continues to present with impairments in ADL's, independence in exercise, overall function, patient reported outcome measures, strength, and symptom management that interfere with standing, walking in the community (Better with standing. 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 L LE with car transfers due to L groin pain.) . Current prognosis is Good due to: current objective clinical presentation, good overall health status, good support system/ coping skills, within-session changes, Prognosis may be limited due to chronic nature of impairments . Patient demonstrates improvement in lumbar ROM, decreased lower back and L groin pain, improving trunk, abdominal and LE strengths and has improved tolerance for longer distance walking since starting therapy. The patient will benefit from continued skilled therapy services to meet the updated goals for this plan of care as noted below. Goals for Episode of Care: addressed 03/24/2024 Patient reported outcome of physical function will increase T-score by a minimum 5 points. (Increased rating by 7 points since last completed) Patient to be independent in home exercise program for low back ROM and lumbar stabilization and LE strengthening exercises to return patient to prior level of function and reduce L hip pain. (Ongoing. Patient completes daily) Patient will decrease lower back and L LE radicular pain to 0-3/10 at rest and with functional activities to allow patient to improve ambulation, transfers, and standing tolerance for ADLs. (Improving. Average pain level is 2-3 out of 10) Patient will increase active ROM of lumbar spine to minimal to moderate limitation overall to allow pt to improve performance of ADLs. (Improving) Patient will demonstrate increase in trunk, abdominal and bilateral LE strengths to 4+ to 4+-5/5 during manual muscle testing in order to improve function for home management tasks, light functional tasks, and prior functional tasks. (Improving) Perform most home management and ADL tasks with decreased report of symptoms/pain in 4-6 weeks. (Improved. Able to walk for exercise recently [place] in [facility]) Patient Goals: To decrease lower back and L hip pain (Improving) Time Frame for Goals and Treatment : 05/07/24 Planned Interventions, Frequency, and Duration: 2x/week, 5 weeks Total Number of Visits Planned: 10 Patient to be seen for Therapeutic exercise (12933), Manual therapy (01170), Therapeutic activities (73913), Self-penitentiary management (60034), Patient/Family/Caregiver Education, Body Mechanics Training PLAN FOR NEXT VISIT: Continue to progress LE strengthening with increasing repetitions as pt tolerates. SUBJECTIVE: Patient continues to have twinges of pain in the L groin. He rates his L groin pain level at 2-3 out of 10 today. He states that he got 3 injections last Friday and that he was not feeling good until Friday last week. He states that he had limited tolerance for activity into the weekend. He will have a Pain Management appointment with Dr. Gualberto Mcmahon on 04/28/2024. He feels that he is greatly improved since starting therapy and is about 75% improved overall. Functional Limitations: standing, walking in the community (Better with standing. 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 L LE with car transfers due to L groin pain.) Pain: Pain Pain Level: 1 Pain Location: Low Back/Lumbar Spine - Left Description: Aching Frequency: Walking Pain Level 2: (2-3 out of 10) Pain Location 2: Groin - Left Description 2: Aching, Burning Frequency 2: Standing Post Treatment Pain Post Treatment Pain Level: Better PROMIS Scales 03/22/2024 02/24/2024 01/28/2024 Higher is Better Phys Func - Score 38 (moderate dysfunction) 31 (moderate dysfunction) 29 (severe dysfunction) Phys Func - Percentile 12 3 2 Self-Eff Symptom - Score 41 (Average) 30 (Low) 32 (Low) Self-Eff Symptom - Percentile 18 2 4 T-scores: mean of general population = 50. 5 points is clinically meaningfully difference Percentiles provide an indication of how the patient's score ranks in relation to the general population. Higher percentile rankings indicate better function/quality of life. 50th percentile is the average of the general population and indicates half of respondents had a worse score. OBJECTIVE MEASURES WITH LEVEL OF FUNCTION: Lumbar Spine AROM Lumbar Flexion: Minimal limitation Lumbar Extension: Moderate limitation Lumbar R Side-Bend: Minimal limitation Lumbar L Side-Bend: Moderate limitation Lumbar R Rotation: Minimal limitation Lumbar L Rotation: Minimal limitation LE Flexibility R Hamstring Flexibility: 85 degrees, -10 degrees at 90/90 position L Hamstring Flexibility: 80 degrees, -20 degrees at 90/90 position LE Strength Trunk Strength: 4+/5, Abdominal strength is 4/5 R Hip Flexion (L2): (4+-5/5) R Hip ABduction: 4+/5 R Hip ADduction: 4+/5 R Knee Extension (L3): 5/5 R Knee Flexion: 4+/5 R Ankle Dorsiflexion (L4): 4+/5 R Ankle Plantar Flexion: 4+/5 L Hip Flexion (L2): 4+/5 L Hip ABduction: 4+/5 L Hip ADduction: 4+/5 (Pain with L groin during testing) L Knee Extension (L3): 5/5 (L groin pain noted) L Knee Flexion: (4-4+/5) L Ankle Dorsiflexion (L4): 4+/5 L Ankle Plantar Flexion: 4+/5 TREATMENT: Therapeutic Exercise: 2: Supine pelvic tilt with hip add sets 2 x 15 3: Supine pelvic tilt with resisted hip abd with green band 2 x 15 5: Alternating marching 2 x 15 reps in hooklying with green band 6: Heel slides 3# 2 x 15 reps each LE 8: SAQ 3# 2 x 15 reps each LE with 3 sec hold 9: Seated LAQ 3# 2 x 15 reps each LE 10: Resisted knee flexion 2 x 15 reps each LE with 3# and green band 11: Standing marches 3# 2x10 alternating, B 12: Standing hip abduction 2x10, B 3# 13: Shuttle bilateral with wedge 62# 3x10 reps blocked at 90 14: Shuttle single leg with wedge 37# 2 x10 reps, B blocked at 90 15: Recumbent stepper manual L3 x 7 minutes (not billed) (Increased time) Skilled Intervention: Skilled judgment was used in selection of appropriate interventions. Completed Progress Report for lumbar AROM, bilateral LE flexibility, trunk, abdominal and bilateral LE strength testing. Billing Therapeutic Exercise Treatment Minutes: 60 Skilled Treatment Time Minutes (timed and untimed codes): 60 Total Session Time (minutes): 76 Session Start Time : 1417 Session Stop Time : 1533 Time spent on Recumbent Stepper not included in billed treatment time. Endy Curran PT, DERRICK documented in this encounter [facility] 03-19-2024 Instructions Richie Dejesus MD - 03/19/2024 11:22 AM EST AFTERCARE CRYOTHERAPY The skin s response to cryosurgery (freezing) can be mild to more severe, depending on the depth of the freeze and location of the area treated. You may have minimal redness and swelling with little discomfort or significant discoloration and blistering with considerable discomfort. A burning sensation in the skin may last from several minutes to several hours after the procedure. Follow these instructions when caring for an area treated by cryosurgery. MINOR RESPONSE 1. Keep the area clean and dry for 24 hours. After 24 hours, the area may be washed gently with soap and water. 2. The area may sting or burn for a short time after treatment. 3. The treated area will be red in color at first then turn brown and flaky as it heals and the upper layer of skin sloughs off. 4. Gently cleanse the area with Q-tips dipped in plain warm water. Pat dry and apply a thin film of vaseline. Do this at least once a day to prevent infection. MAJOR REPSONSE 1. Follow instructions as stated above for minor response. 2. The area may sting and burn for several hours after treatment. 3. To relieve throbbing and pain, elevate the treatment area. 4. Tylenol (acetaminophen) may be taken every 3 to 4 hours for discomfort. 5. A blister will form in the area of freezing. It may be filled with clear fluid or blood. This response is not unusual. 6. Do not break the blister unless it becomes uncomfortable. You may puncture the blister with a sterile needle or pin to remove the fluid. Leave the skin intact. 7. Cleanse twice a day with plain warm water and apply Vaseline to prevent infection and a thick scab from forming. 8. All treated areas usually heal with 3 to 4 weeks. documented in this encounter [facility] 03-19-2024 History of Present illness Narrative Patient presents with: Actinic Keratosis Cryosurgery of non-malignant lesion(s) HPI: Patient is here for cryosurgery Patient is alert oriented 3 not in apparent distress Luther Duganetler Medical Record: [id number] Date: 03/19/2024 Procedure: Cryosurgery The risks, benefits and anticipated outcomes of the procedure, the risks and benefits of the alternatives to the procedure and the roles and tasks of the personnel to be involved were discussed with the patient and the patient consents to the procedure and agrees to proceed. I verify that I personally obtained Luther Castillo's consent. Richie Dejesus MD Dept of DERMATOLOGY Cryosurgery performed with Liquid Nitrogen via via cryostat spray gun to Actinic Keratosis. 4 lesion(s) treated crown scalp left dorsal hand. Patient tolerated treatment well. Wound care instructions provided, pt verbalizes understanding. Richie Dejesus MD RTC 4 months documented in this encounter [facility] 03-19-2024 Note [facility] 03-17-2024 Note [facility] 03-17-2024 History of Present illness Narrative Patient here today for injections. xgeva (denies jaw pain, tooth pain) given SQ in Rt arm, eligard given SQ in LLQ and aranesp given SQ in left arm. Pt tolerated well Lorin Zhang LPN documented in this encounter [facility] 03-16-2024 Note HNO ID: [id number] Author: JULIANO MAGAÑA PT Service: ? Author Type: Physical Therapist Type: Progress Notes Filed: 03/16/2024 14:45 Note Text: Episode Visit Count: 10 Therapist That Will Accept/Oversee The Plan Of Care: Endy Curran PT, DERRICK Start of Care Date: 01/29/24 Onset Date: 05/08/23 (Flare up since about October 2023) Plan of Care Certification Date: 02/25/24 Next Certification Due Date: 03/19/24 Patient Identified by Name and Date of : Yes REHABILITATION AND SPORTS THERAPY PHYSICAL THERAPY TREATMENT NOTE ASSESSMENT: Luther Castillo tolerated the session with decreased symptoms and no issues. He demonstrated difficulty with resisted standing hip abduction and marches and improvements in bilateral quad activation with progression of single and bilateral leg press. The patient will continue to benefit from ongoing skilled physical therapy to progress toward set goals. PLAN FOR NEXT VISIT: Progress LE strengthening as tolerated SUBJECTIVE: Pt continues to report decreased pain symptoms since beginning physical therapy. Pain: Pain Pain Level: 2 Pain Location: Low Back/Lumbar Spine - Left Description: Aching Frequency: Walking Pain Level 2: 2 Pain Location 2: Groin - Left Description 2: Aching Frequency 2: Standing Post Treatment Pain Post Treatment Pain Level: No Change OBJECTIVE MEASURES WITH LEVEL OF FUNCTION: No objective measurements documented this date. TREATMENT: Therapeutic Exercise: 2: Supine pelvic tilt with hip add sets 2 x 15 3: Supine pelvic tilt with resisted hip abd with green band 2 x 15 5: Alternating marching 2 x 15 reps in hooklying with green band 6: Heel slides 3# 2 x 15 reps each LE (Increased resistance) 8: SAQ 3# 2 x 15 reps each LE with 3 sec hold (Increased resistance) 9: Seated LAQ 3# 2 x 15 reps each LE (Increased resistance) 10: Resisted knee flexion 2 x 15 reps each LE with 2# and green band 11: Standing marches 3# 2x10 alternating, B 12: Standing hip abduction 2x10, B 3# 13: Shuttle bilateral with wedge 62# 3x10 reps blocked at 90 14: Shuttle single leg with wedge 37# 2 x10 reps, B blocked at 90 15: Recumbant stepper manual L3 x5 minutes (not billed) Skilled Intervention: Patient was educated in proper exercise technique and purpose for exercises. Skilled judgment was used in selection of appropriate interventions. Correct performance of therapeutic exercises was facilitated with verbal and visual cuing. Billing Therapeutic Exercise Treatment Minutes: 45 Skilled Treatment Time Minutes (timed and untimed codes): 45 Total Session Time (minutes): 55 Session Start Time : 1400 Session Stop Time : 1455 Juliano Magaña PT, DPT [facility] 03-16-2024 History of Present illness Narrative Episode Visit Count: 10 Therapist That Will Accept/Oversee The Plan Of Care: Endy Curran PT, DERRICK Start of Care Date: 01/29/24 Onset Date: 05/08/23 (Flare up since about October 2023) Plan of Care Certification Date: 02/25/24 Next Certification Due Date: 03/19/24 Patient Identified by Name and Date of : Yes REHABILITATION AND SPORTS THERAPY PHYSICAL THERAPY TREATMENT NOTE ASSESSMENT: Luther Castillo tolerated the session with decreased symptoms and no issues. He demonstrated difficulty with resisted standing hip abduction and marches and improvements in bilateral quad activation with progression of single and bilateral leg press. The patient will continue to benefit from ongoing skilled physical therapy to progress toward set goals. PLAN FOR NEXT VISIT: Progress LE strengthening as tolerated SUBJECTIVE: Pt continues to report decreased pain symptoms since beginning physical therapy. Pain: Pain Pain Level: 2 Pain Location: Low Back/Lumbar Spine - Left Description: Aching Frequency: Walking Pain Level 2: 2 Pain Location 2: Groin - Left Description 2: Aching Frequency 2: Standing Post Treatment Pain Post Treatment Pain Level: No Change OBJECTIVE MEASURES WITH LEVEL OF FUNCTION: No objective measurements documented this date. TREATMENT: Therapeutic Exercise: 2: Supine pelvic tilt with hip add sets 2 x 15 3: Supine pelvic tilt with resisted hip abd with green band 2 x 15 5: Alternating marching 2 x 15 reps in hooklying with green band 6: Heel slides 3# 2 x 15 reps each LE (Increased resistance) 8: SAQ 3# 2 x 15 reps each LE with 3 sec hold (Increased resistance) 9: Seated LAQ 3# 2 x 15 reps each LE (Increased resistance) 10: Resisted knee flexion 2 x 15 reps each LE with 2# and green band 11: Standing marches 3# 2x10 alternating, B 12: Standing hip abduction 2x10, B 3# 13: Shuttle bilateral with wedge 62# 3x10 reps blocked at 90 14: Shuttle single leg with wedge 37# 2 x10 reps, B blocked at 90 15: Recumbant stepper manual L3 x5 minutes (not billed) Skilled Intervention: Patient was educated in proper exercise technique and purpose for exercises. Skilled judgment was used in selection of appropriate interventions. Correct performance of therapeutic exercises was facilitated with verbal and visual cuing. Billing Therapeutic Exercise Treatment Minutes: 45 Skilled Treatment Time Minutes (timed and untimed codes): 45 Total Session Time (minutes): 55 Session Start Time : 1400 Session Stop Time : 1455 Juliano Magaña PT, DPT documented in this encounter [facility] 03-15-2024 Telephone encounter Note The patient has been identified by name and date of : Yes Caregiver verified no other encounters exist for this prescription request: Yes Caregiver confirmed with patient/requestor that no other refills are due, in the near future, with this provider at this time: Yes The last office visit in the department: 03/10/2024 Does the patient have a future office visit with this provider/department: Pt was just seen 03/10/24 and per that OV note, pt is to return in 1 year. No appt scheduled at this time. Requested Prescriptions Pending Prescriptions Disp Refills atorvastatin (LIPITOR) 20 mg tablet 90 tablet 3 Sig: Take 1 tablet by mouth daily at bedtime. For cholesterol. Lilibeth Stanton RN March 15, 2024 11:43 AM [facility] 03-15-2024 Miscellaneous Notes The patient has been identified by name and date of : Yes Caregiver verified no other encounters exist for this prescription request: Yes Caregiver confirmed with patient/requestor that no other refills are due, in the near future, with this provider at this time: Yes The last office visit in the department: 03/10/2024 Does the patient have a future office visit with this provider/department: Pt was just seen 03/10/24 and per that OV note, pt is to return in 1 year. No appt scheduled at this time. Requested Prescriptions Pending Prescriptions Disp Refills atorvastatin (LIPITOR) 20 mg tablet 90 tablet 3 Sig: Take 1 tablet by mouth daily at bedtime. For cholesterol. Lilibeth Stanton RN March 15, 2024 11:43 AM documented in this encounter [facility] 03-10-2024 Note [facility] 03-10-2024 History of Present illness Narrative Images from the original note were not included. Luther Castillo is a 68 year old male here for a Medicare wellness visit. Medicare Health Risk Assessment General Health Fair Exercise: Minutes/Day 30 min Exercise: Days/Week 5 days Alcohol: Daily Use 2-3 times a week Alcohol: Drinks/Day 1 or 2 Alcohol: 6 or more drinks Never Feel off balance No Concerns: Teeth/Dentures No Concerns: Sexual function No Troubled by feelings None of the above Frequency: Eating healthy diet Nearly every day ADLs requiring help None of the above Safety precautions in home/vehicle Yes Smoke, vape, chews tobacco No Difficulty hearing No Difficulty seeing No Current Providers Specialists: I have reviewed specialist-related care of the patient in the medical record. Current care team: Patient Care Team: Arsalan Ocampo MD as PCP - General (Family Medicine) Natalya Dorsey RN as Specialty Rubber Trimmer (Hematology/Oncology) Dereje Herring MD (Hematology/Oncology) Outside specialists seen: Dr. Lui Ophthalmology Hip/back pain: Dr. Roach Medical/Family history review Reviewed and updated problem list, medical/surgical/family/social history, medications, and allergies. Opioid use review Opioid Medications (last 90 days) No data to display Depression Screening Cognitive screening Cognitive screening reviewed and No further action needed (score 3-5). Functional Observation Was the patient's Timed Up & Go test unsteady or >= 12 seconds? No Advance Care Planning Surrogate decision maker and/or advance care plan documented Measurements BP 124/76 Pulse 84 Resp 18 Ht 168 cm (5' 6.14) Wt 63.8 kg (140 lb 10.5 oz) BMI 22.60 kg/m Vision Screening: Follows with optometry/ophthalmology Declines visual acuity screen ASSESSMENT/PLAN: 1. Medicare annual wellness visit, subsequent - ICD9: V70.0, ICD10: Z00.00 (primary diagnosis) - Counseled on healthy diet and regular exercise - Fall avoidance information provided - Follow up for annual exam in one year 2. Screening for depression - ICD9: V79.0, ICD10: Z13.31 - DEPRESSION SCREENING Catherine Peraza APRN.DIRECTOR OF HEALTH CARE MARKETING Prescription instructions reviewed with patient as applicable. Patient advised if symptoms do not improve or if symptoms worsen sooner, to contact their primary care physician. Potential red flag symptoms discussed with the patient. Reviewed appropriate action plan to take if red flag symptoms occur. Patient agreeable to treatment plan. documented in this encounter [facility] 03-09-2024 Note HNO ID: [id number] Author: JOSE DAVID CEDENO PTA Service: ? Author Type: Icd 9 Coder Type: Progress Notes Filed: 03/09/2024 16:02 Note Text: Episode Visit Count: 9 Therapist That Will Accept/Oversee The Plan Of Care: Endy Curran PT, DERRICK Start of Care Date: 01/29/24 Onset Date: 05/08/23 (Flare up since about October 2023) Plan of Care Certification Date: 02/25/24 Next Certification Due Date: 03/19/24 Patient Identified by Name and Date of : Yes REHABILITATION AND SPORTS THERAPY PHYSICAL THERAPY TREATMENT NOTE ASSESSMENT: Luther Castillo tolerated the session with expected muscle soreness. He demonstrated improvements in tolerance with progression of reps for LAQ's and single leg shuttle as well as increased resistance for double leg press on the shuttle. The patient will continue to benefit from ongoing skilled physical therapy to progress toward set goals. PLAN FOR NEXT VISIT: Progress shuttle; progress LE strengthening as tolerated SUBJECTIVE: I've been feeling great. 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 Pain: Pain Pain Level: 3 Pain Location: Low Back/Lumbar Spine - Left Description: Aching Frequency: Walking Additional Pain Information : Location 2 Pain Level 2: 3 Pain Location 2: Groin - Left Description 2: Aching Frequency 2: Standing Post Treatment Pain Post Treatment Pain Level: No Change OBJECTIVE MEASURES WITH LEVEL OF FUNCTION: No objective measure taken this date. TREATMENT: Therapeutic Exercise: 2: Supine pelvic tilt with hip add sets x 15 3: Supine pelvic tilt with resisted hip abd with green band 2 x 15 5: Alternating marching 2 x 15 reps in hooklying with green band 6: Heel slides 2# 2 x 15 reps each LE 7: Hip abduction 2# 2 x 15 reps each LE 8: SAQ 2# 2 x 15 reps each LE with 3 sec hold 9: Seated LAQ 2# 2 x 15 reps each LE (increased reps) 10: Resisted knee flexion 2 x 15 reps each LE with 2# and green band 11: Seated marching with abdominal set 2 x 15 reps each LE with 1# and green band 13: Shuttle bilateral with wedge 43# 2 x 15 reps blocked at 90 (increased resistance) 14: Shuttle single leg with wedge 25# 2 x10 reps, B blocked at 90 (increased reps) 15: Recumbant stepper manual L3 x5 minutes (not billed) Skilled Intervention: Patient was educated in proper exercise technique and purpose for exercises. Skilled judgment was used in selection of appropriate interventions. Correct performance of therapeutic exercises was facilitated with verbal and visual cuing. Billing Therapeutic Exercise Treatment Minutes: 60 Skilled Treatment Time Minutes (timed and untimed codes): 60 Total Session Time (minutes): 70 Session Start Time : 1445 Session Stop Time : 1555 Time spent on recumbent stepper not included in billed treatment time. Jose David Cedeno [facility] 03-09-2024 History of Present illness Narrative Episode Visit Count: 9 Therapist That Will Accept/Oversee The Plan Of Care: Endy Curran PT, DERRICK Start of Care Date: 01/29/24 Onset Date: 05/08/23 (Flare up since about October 2023) Plan of Care Certification Date: 02/25/24 Next Certification Due Date: 03/19/24 Patient Identified by Name and Date of : Yes REHABILITATION AND SPORTS THERAPY PHYSICAL THERAPY TREATMENT NOTE ASSESSMENT: Luther Castillo tolerated the session with expected muscle soreness. He demonstrated improvements in tolerance with progression of reps for LAQ's and single leg shuttle as well as increased resistance for double leg press on the shuttle. The patient will continue to benefit from ongoing skilled physical therapy to progress toward set goals. PLAN FOR NEXT VISIT: Progress shuttle; progress LE strengthening as tolerated SUBJECTIVE: I've been feeling great. 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 Pain: Pain Pain Level: 3 Pain Location: Low Back/Lumbar Spine - Left Description: Aching Frequency: Walking Additional Pain Information : Location 2 Pain Level 2: 3 Pain Location 2: Groin - Left Description 2: Aching Frequency 2: Standing Post Treatment Pain Post Treatment Pain Level: No Change OBJECTIVE MEASURES WITH LEVEL OF FUNCTION: No objective measure taken this date. TREATMENT: Therapeutic Exercise: 2: Supine pelvic tilt with hip add sets x 15 3: Supine pelvic tilt with resisted hip abd with green band 2 x 15 5: Alternating marching 2 x 15 reps in hooklying with green band 6: Heel slides 2# 2 x 15 reps each LE 7: Hip abduction 2# 2 x 15 reps each LE 8: SAQ 2# 2 x 15 reps each LE with 3 sec hold 9: Seated LAQ 2# 2 x 15 reps each LE (increased reps) 10: Resisted knee flexion 2 x 15 reps each LE with 2# and green band 11: Seated marching with abdominal set 2 x 15 reps each LE with 1# and green band 13: Shuttle bilateral with wedge 43# 2 x 15 reps blocked at 90 (increased resistance) 14: Shuttle single leg with wedge 25# 2 x10 reps, B blocked at 90 (increased reps) 15: Recumbant stepper manual L3 x5 minutes (not billed) Skilled Intervention: Patient was educated in proper exercise technique and purpose for exercises. Skilled judgment was used in selection of appropriate interventions. Correct performance of therapeutic exercises was facilitated with verbal and visual cuing. Billing Therapeutic Exercise Treatment Minutes: 60 Skilled Treatment Time Minutes (timed and untimed codes): 60 Total Session Time (minutes): 70 Session Start Time : 1445 Session Stop Time : 1555 Time spent on recumbent stepper not included in billed treatment time. Jose David Cedeno PTA documented in this encounter [facility] 03-02-2024 Note HNO ID: [id number] Author: JULIANO MAGAÑA PT Service: ? Author Type: Physical Therapist Type: Progress Notes Filed: 03/02/2024 15:59 Note Text: Episode Visit Count: 8 Therapist That Will Accept/Oversee The Plan Of Care: Endy Curran PT, DERRICK Start of Care Date: 01/29/24 Onset Date: 05/08/23 (Flare up since about October 2023) Plan of Care Certification Date: 02/25/24 Next Certification Due Date: 03/19/24 Patient Identified by Name and Date of : Yes REHABILITATION AND SPORTS THERAPY PHYSICAL THERAPY TREATMENT NOTE ASSESSMENT: Luther Castillo tolerated the session with no issues. He demonstrated improvements in LE muscle strength with increased resistance or repetitions added this date without increased symptoms. This therapist messaged the orthopedic referring provider regarding scheduling an appt with pain management. The patient will continue to benefit from ongoing skilled physical therapy to progress toward set goals. PLAN FOR NEXT VISIT: Progress shuttle; progress LE strengthening as tolerated SUBJECTIVE: Pt reported his hip pain has decreased since last session. He feels it may have been the added resistance training last time. He would like to continue with therapy and he will call in tomorrow to schedule another appt. Pain: Pain Pain Level: 5 Pain Location: Low Back/Lumbar Spine - Left Description: Aching Frequency: Walking Additional Pain Information : Location 2 Pain Level 2: 6 Pain Location 2: Groin - Left Description 2: Throbbing Frequency 2: Standing Post Treatment Pain Post Treatment Pain Level: No Change OBJECTIVE MEASURES WITH LEVEL OF FUNCTION: No objective measurements documented this date. TREATMENT: Therapeutic Exercise: 2: Supine pelvic tilt with hip add sets x 15 3: Supine pelvic tilt with resisted hip abd with green band 2 x 15 5: Alternating marching 2 x 15 reps in hooklying with green band 6: Heel slides 2# 2 x 15 reps each LE 7: Hip abduction 2# 2 x 15 reps each LE 8: SAQ 2# 2 x 15 reps each LE with 3 sec hold 9: Seated LAQ 2# 2 x 10 reps each LE 10: Resisted knee flexion 2 x 15 reps each LE with 2# and green band 11: Seated marching with abdominal set 2 x 15 reps each LE with 1# and green band 13: Shuttle bilateral with wedge 37# 2 x 15 reps blocked at 90 14: Shuttle single leg with wedge 25# 1x15 reps, B blocked at 90 15: Recumbant stepper manual L3 x5 minutes (not billed) Skilled Intervention: Patient was educated in proper exercise technique and purpose for exercises. Skilled judgment was used in selection of appropriate interventions. Correct performance of therapeutic exercises was facilitated with verbal and visual cuing. Billing Therapeutic Exercise Treatment Minutes: 60 Skilled Treatment Time Minutes (timed and untimed codes): 60 Total Session Time (minutes): 65 Session Start Time : 1445 Session Stop Time : 1550 Juliano Magaña, PT, DPT [facility] 03-02-2024 History of Present illness Narrative Episode Visit Count: 8 Therapist That Will Accept/Oversee The Plan Of Care: Endy Curran PT, DERRICK Start of Care Date: 01/29/24 Onset Date: 05/08/23 (Flare up since about October 2023) Plan of Care Certification Date: 02/25/24 Next Certification Due Date: 03/19/24 Patient Identified by Name and Date of : Yes REHABILITATION AND SPORTS THERAPY PHYSICAL THERAPY TREATMENT NOTE ASSESSMENT: Luther Castillo tolerated the session with no issues. He demonstrated improvements in LE muscle strength with increased resistance or repetitions added this date without increased symptoms. This therapist messaged the orthopedic referring provider regarding scheduling an appt with pain management. The patient will continue to benefit from ongoing skilled physical therapy to progress toward set goals. PLAN FOR NEXT VISIT: Progress shuttle; progress LE strengthening as tolerated SUBJECTIVE: Pt reported his hip pain has decreased since last session. He feels it may have been the added resistance training last time. He would like to continue with therapy and he will call in tomorrow to schedule another appt. Pain: Pain Pain Level: 5 Pain Location: Low Back/Lumbar Spine - Left Description: Aching Frequency: Walking Additional Pain Information : Location 2 Pain Level 2: 6 Pain Location 2: Groin - Left Description 2: Throbbing Frequency 2: Standing Post Treatment Pain Post Treatment Pain Level: No Change OBJECTIVE MEASURES WITH LEVEL OF FUNCTION: No objective measurements documented this date. TREATMENT: Therapeutic Exercise: 2: Supine pelvic tilt with hip add sets x 15 3: Supine pelvic tilt with resisted hip abd with green band 2 x 15 5: Alternating marching 2 x 15 reps in hooklying with green band 6: Heel slides 2# 2 x 15 reps each LE 7: Hip abduction 2# 2 x 15 reps each LE 8: SAQ 2# 2 x 15 reps each LE with 3 sec hold 9: Seated LAQ 2# 2 x 10 reps each LE 10: Resisted knee flexion 2 x 15 reps each LE with 2# and green band 11: Seated marching with abdominal set 2 x 15 reps each LE with 1# and green band 13: Shuttle bilateral with wedge 37# 2 x 15 reps blocked at 90 14: Shuttle single leg with wedge 25# 1x15 reps, B blocked at 90 15: Recumbant stepper manual L3 x5 minutes (not billed) Skilled Intervention: Patient was educated in proper exercise technique and purpose for exercises. Skilled judgment was used in selection of appropriate interventions. Correct performance of therapeutic exercises was facilitated with verbal and visual cuing. Billing Therapeutic Exercise Treatment Minutes: 60 Skilled Treatment Time Minutes (timed and untimed codes): 60 Total Session Time (minutes): 65 Session Start Time : 1445 Session Stop Time : 1550 Juliano Magaña PT, DPT documented in this encounter [facility] 02-27-2024 Note HNO ID: [id number] Author: ROSEANNA HUGHES PTA Service: ? Author Type: Icd 9 Coder Type: Progress Notes Filed: 02/27/2024 13:39 Note Text: Episode Visit Count: 7 Therapist That Will Accept/Oversee The Plan Of Care: Endy Curran PT, DERRICK Start of Care Date: 01/29/24 Onset Date: 05/08/23 (Flare up since about October 2023) Plan of Care Certification Date: 02/25/24 Next Certification Due Date: 03/19/24 Patient Identified by Name and Date of : Yes REHABILITATION AND SPORTS THERAPY PHYSICAL THERAPY TREATMENT NOTE ASSESSMENT: Luther Castillo tolerated the session with no issues. He demonstrated improvements in tolerance to progression with addition of resistance and progression of band to green. Patient also tolerated addition of bilateral shuttle. The patient will continue to benefit from ongoing skilled physical therapy to progress toward set goals. PLAN FOR NEXT VISIT: Progress shuttle and add recumbent stepper SUBJECTIVE: Patient reported that he was able to stand for a longer period last night and cook some without back pain. He reported that his groin pain continues and would rate at 8/10 this a.m. with walking and standing. He reported that he awaiting a call back from his doctor's office as he called about a referral to pain management. Pain: Pain Pain Level: 6 Pain Location: Low Back/Lumbar Spine - Left Description: Aching Frequency: Walking Additional Pain Information : Location 2 Pain Level 2: 8 Pain Location 2: Groin - Left Description 2: Cutting, Sharp Frequency 2: Standing Post Treatment Pain Post Treatment Pain Level: No Change OBJECTIVE MEASURES WITH LEVEL OF FUNCTION: No objective measures taken this date. TREATMENT: Therapeutic Exercise: 2: Supine pelvic tilt with hip add sets x 15 3: Supine pelvic tilt with resisted hip abd with green band x 15 (Progressed to green band) 5: Alternating marching x 15 reps in hooklying with green band (Progressed to green band) 6: Heel slides 1# 2 x 15 reps each LE (Added 1#) 7: Hip abduction 1# 2 x 15 reps each LE (Added 1#) 8: SAQ 1# 2 x 15 reps each LE with 3 sec hold (Added 1#) 9: Seated LAQ 1# 2 x 15 reps each LE (Added 1#) 10: Resisted knee flexion 2 x 15 reps each LE with 1# and green band (Added 1# and green band) 11: Seated marching with abdominal set 2 x 15 reps each LE with 1# and green band (Progressed to green band) 13: Shuttle bilateral with wedge 37# 2 x 15 reps blocked at 90 Skilled Intervention: Patient was educated in proper exercise technique and purpose for exercises. Skilled judgment was used in selection of appropriate interventions. Billing Therapeutic Exercise Treatment Minutes: 55 Skilled Treatment Time Minutes (timed and untimed codes): 55 Total Session Time (minutes): 55 Session Start Time : 1145 Session Stop Time : 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 [facility] 02-27-2024 History of Present illness Narrative Episode Visit Count: 7 Therapist That Will Accept/Oversee The Plan Of Care: Endy Curran PT, DERRICK Start of Care Date: 01/29/24 Onset Date: 05/08/23 (Flare up since about October 2023) Plan of Care Certification Date: 02/25/24 Next Certification Due Date: 03/19/24 Patient Identified by Name and Date of : Yes REHABILITATION AND SPORTS THERAPY PHYSICAL THERAPY TREATMENT NOTE ASSESSMENT: Luther Castillo tolerated the session with no issues. He demonstrated improvements in tolerance to progression with addition of resistance and progression of band to green. Patient also tolerated addition of bilateral shuttle. The patient will continue to benefit from ongoing skilled physical therapy to progress toward set goals. PLAN FOR NEXT VISIT: Progress shuttle and add recumbent stepper SUBJECTIVE: Patient reported that he was able to stand for a longer period last night and cook some without back pain. He reported that his groin pain continues and would rate at 8/10 this a.m. with walking and standing. He reported that he awaiting a call back from his doctor's office as he called about a referral to pain management. Pain: Pain Pain Level: 6 Pain Location: Low Back/Lumbar Spine - Left Description: Aching Frequency: Walking Additional Pain Information : Location 2 Pain Level 2: 8 Pain Location 2: Groin - Left Description 2: Cutting, Sharp Frequency 2: Standing Post Treatment Pain Post Treatment Pain Level: No Change OBJECTIVE MEASURES WITH LEVEL OF FUNCTION: No objective measures taken this date. TREATMENT: Therapeutic Exercise: 2: Supine pelvic tilt with hip add sets x 15 3: Supine pelvic tilt with resisted hip abd with green band x 15 (Progressed to green band) 5: Alternating marching x 15 reps in hooklying with green band (Progressed to green band) 6: Heel slides 1# 2 x 15 reps each LE (Added 1#) 7: Hip abduction 1# 2 x 15 reps each LE (Added 1#) 8: SAQ 1# 2 x 15 reps each LE with 3 sec hold (Added 1#) 9: Seated LAQ 1# 2 x 15 reps each LE (Added 1#) 10: Resisted knee flexion 2 x 15 reps each LE with 1# and green band (Added 1# and green band) 11: Seated marching with abdominal set 2 x 15 reps each LE with 1# and green band (Progressed to green band) 13: Shuttle bilateral with wedge 37# 2 x 15 reps blocked at 90 Skilled Intervention: Patient was educated in proper exercise technique and purpose for exercises. Skilled judgment was used in selection of appropriate interventions. Billing Therapeutic Exercise Treatment Minutes: 55 Skilled Treatment Time Minutes (timed and untimed codes): 55 Total Session Time (minutes): 55 Session Start Time : 1145 Session Stop Time : 1240 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 PTA documented in this encounter [facility] 02-25-2024 Telephone encounter Note Patient calling in to see if Dr. Roach wanted him to see Dr. Mcmahon in [place]. Patient mentioned that it was brought up at his appt with Doc and he has not heard anything yet. Please review and advise. Sariah Amaro February 25, 2024 1:25 PM [facility] 02-25-2024 Miscellaneous Notes Patient calling in to see if Dr. Roach wanted him to see Dr. Mcmahon in [place]. Patient mentioned that it was brought up at his appt with Doc and he has not heard anything yet. Please review and advise. Sariah Amaro February 25, 2024 1:25 PM documented in this encounter [facility] 02-25-2024 Note HNO ID: [id number] Author: ENDY CURRAN PT Service: ? Author Type: Physical Therapist Type: Progress Notes Filed: 02/25/2024 12:45 Note Text: Episode Visit Count: 6 Therapist That Will Accept/Oversee The Plan Of Care: Endy Curran PT, DERRICK Start of Care Date: 01/29/24 Onset Date: 05/08/23 (Flare up since about October 2023) Plan of Care Certification Date: 02/25/24 Next Certification Due Date: 03/19/24 Patient Identified by Name and Date of : Yes REHABILITATION AND SPORTS THERAPY PHYSICAL THERAPY PROGRESS REPORT PLAN OF CARE UPDATE: Assessment: Luther Castillo demonstrates no changes in his overall functional limitations and continues to report increased L groin and L lower back pain with prolonged sitting or with walking. The patient has progressed toward goals, but continues to report same pain levels since he started therapy. Patient continues to present with impairments in ADL's, independence in exercise, overall function, patient reported outcome measures, range of motion, and symptom management that interfere with standing, walking in the house, walking in the community, cleaning, dressing, grooming, bed mobility (Continued difficulty with L LE car transfers needing UE assist and difficulty reaching behind the L side with showering.) . Current prognosis is Good due to: current objective clinical presentation, good overall health status, good support system/ coping skills, Prognosis may be limited due to chronic nature of impairments . Patient returned to Dr. Roach and was recommended to see Dr. Gualberto Mcmahon in Pain Management for possible lower back injections, which may be helpful as therapy to date has not changed his overall symptoms. The patient will benefit from continued skilled therapy services to meet the updated goals for this plan of care as noted below. Goals for Episode of Care: established 02/25/2024 Patient reported outcome of physical function will increase T-score by a minimum 5 points. (Minimal change with increase of 2 points) Patient to be independent in home exercise program for low back ROM and lumbar stabilization and LE strengthening exercises to return patient to prior level of function and reduce L hip pain. (Ongoing. Patient completes daily) Patient will decrease lower back and L LE radicular pain to 0-3/10 at rest and with functional activities to allow patient to improve ambulation, transfers, and standing tolerance for ADLs. (Ongoing. No change in pain level, which remains 7-8 out of 10) Patient will increase active ROM of lumbar spine to minimal to moderate limitation overall to allow pt to improve performance of ADLs. (Ongoing. No changes noted) Patient will demonstrate increase in trunk, abdominal and bilateral LE strengths to 4+ to 4+-5/5 during manual muscle testing in order to improve function for home management tasks, light functional tasks, and prior functional tasks. (Ongoing) Perform most home management and ADL tasks with decreased report of symptoms/pain in 4-6 weeks. (No changes per patient. Unable to walk for exercise with his ) Patient Goals: To decrease lower back and L hip pain Time Frame for Goals and Treatment : 03/19/24 Planned Interventions, Frequency, and Duration: 2x/week, 3 weeks Total Number of Visits Planned: 6 Patient to be seen for Therapeutic exercise (71582), Manual therapy (93289), Therapeutic activities (90984), Self-penitentiary management ([id number]), Patient/Family/Caregiver Education, Body Mechanics Training PLAN FOR NEXT VISIT: August trial shuttle next session as tolerated and add light resistance with PREs. SUBJECTIVE: Patient saw Dr. Roach on 02/23/2024 and he wants to refer him to Dr. Gualberto Mcmahon, Pain Management, as he feels that patient may have something pinched in the lower back. He reports a history of lower back injections about 12 years ago that helped. Patient states that his L groin pain is worse when he sits and better when he lies down. Patient rates his L groin and L lower back pain at 7-8 out of 10. He is taking Ibuprofen at home whenever he thinks about it and feels that it does help a little bit. He has tried to use a pillow under his knees with sleeping and it did help a little bit. Patient states that he has not noticed any changes in his symptoms since starting therapy. Functional Limitations: standing, walking in the house, walking in the community, cleaning, dressing, grooming, bed mobility (Continued difficulty with L LE car transfers needing UE assist and difficulty reaching behind the L side with showering.) Pain: Pain Pain Level: (7-8 out of 10) Pain Location: Hip - Left, Groin - Left, Low Back/Lumbar Spine - Left Description: Aching, Pressure, Stabbing, Burning (Stabbing, burning is in the L groin region) Frequency: Continuous (L groin pain is noticed with sitting) Post Treatment Pain Post Treatment Symptoms: Patient noted that he (more content not included)... [facility] 02-25-2024 History of Present illness Narrative Images from the original note were not included. Episode Visit Count: 6 Therapist That Will Accept/Oversee The Plan Of Care: Endy Curran PT, DERRICK Start of Care Date: 01/29/24 Onset Date: 05/08/23 (Flare up since about October 2023) Plan of Care Certification Date: 02/25/24 Next Certification Due Date: 03/19/24 Patient Identified by Name and Date of : Yes REHABILITATION AND SPORTS THERAPY PHYSICAL THERAPY PROGRESS REPORT PLAN OF CARE UPDATE: Assessment: Luther Castillo demonstrates no changes in his overall functional limitations and continues to report increased L groin and L lower back pain with prolonged sitting or with walking. The patient has progressed toward goals, but continues to report same pain levels since he started therapy. Patient continues to present with impairments in ADL's, independence in exercise, overall function, patient reported outcome measures, range of motion, and symptom management that interfere with standing, walking in the house, walking in the community, cleaning, dressing, grooming, bed mobility (Continued difficulty with L LE car transfers needing UE assist and difficulty reaching behind the L side with showering.) . Current prognosis is Good due to: current objective clinical presentation, good overall health status, good support system/ coping skills, Prognosis may be limited due to chronic nature of impairments . Patient returned to Dr. Roach and was recommended to see Dr. Gualberto Mcmahon in Pain Management for possible lower back injections, which may be helpful as therapy to date has not changed his overall symptoms. The patient will benefit from continued skilled therapy services to meet the updated goals for this plan of care as noted below. Goals for Episode of Care: established 02/25/2024 Patient reported outcome of physical function will increase T-score by a minimum 5 points. (Minimal change with increase of 2 points) Patient to be independent in home exercise program for low back ROM and lumbar stabilization and LE strengthening exercises to return patient to prior level of function and reduce L hip pain. (Ongoing. Patient completes daily) Patient will decrease lower back and L LE radicular pain to 0-3/10 at rest and with functional activities to allow patient to improve ambulation, transfers, and standing tolerance for ADLs. (Ongoing. No change in pain level, which remains 7-8 out of 10) Patient will increase active ROM of lumbar spine to minimal to moderate limitation overall to allow pt to improve performance of ADLs. (Ongoing. No changes noted) Patient will demonstrate increase in trunk, abdominal and bilateral LE strengths to 4+ to 4+-5/5 during manual muscle testing in order to improve function for home management tasks, light functional tasks, and prior functional tasks. (Ongoing) Perform most home management and ADL tasks with decreased report of symptoms/pain in 4-6 weeks. (No changes per patient. Unable to walk for exercise with his ) Patient Goals: To decrease lower back and L hip pain Time Frame for Goals and Treatment : 03/19/24 Planned Interventions, Frequency, and Duration: 2x/week, 3 weeks Total Number of Visits Planned: 6 Patient to be seen for Therapeutic exercise (76938), Manual therapy (05477), Therapeutic activities (78475), Self-penitentiary management (93763), Patient/Family/Caregiver Education, Body Mechanics Training PLAN FOR NEXT VISIT: August trial shuttle next session as tolerated and add light resistance with PREs. SUBJECTIVE: Patient saw Dr. Roach on 02/23/2024 and he wants to refer him to Dr. Gualberto Mcmahon, Pain Management, as he feels that patient may have something pinched in the lower back. He reports a history of lower back injections about 12 years ago that helped. Patient states that his L groin pain is worse when he sits and better when he lies down. Patient rates his L groin and L lower back pain at 7-8 out of 10. He is taking Ibuprofen at home whenever he thinks about it and feels that it does help a little bit. He has tried to use a pillow under his knees with sleeping and it did help a little bit. Patient states that he has not noticed any changes in his symptoms since starting therapy. Functional Limitations: standing, walking in the house, walking in the community, cleaning, dressing, grooming, bed mobility (Continued difficulty with L LE car transfers needing UE assist and difficulty reaching behind the L side with showering.) Pain: Pain Pain Level: (7-8 out of 10) Pain Location: Hip - Left, Groin - Left, Low Back/Lumbar Spine - Left Description: Aching, Pressure, Stabbing, Burning (Stabbing, burning is in the L groin region) Frequency: Continuous (L groin pain is noticed with sitting) Post Treatment Pain Post Treatment Symptoms: Patient noted that he felt good after therapy, but after he is on his feet that his pain level returns PROMIS Scales 02/24/2024 01/28/2024 Higher is Better Phys Func - Score 31 (moderate dysfunction) 29 (severe dysfunction) Phys Func - Percentile 3 2 Self-Eff Symptom - Score 30 (Low) 32 (Low) Self-Eff Symptom - Percentile 2 4 T-scores: mean of general population = 50. 5 points is clinically meaningfully difference Percentiles provide an indication of how the patient's score ranks in relation to the general population. Higher percentile rankings indicate better function/quality of life. 50th percentile is the average of the general population and indicates half of respondents had a worse score. OBJECTIVE MEASURES WITH LEVEL OF FUNCTION: Lumbar Spine AROM Lumbar Flexion: Moderate limitation Lumbar Extension: Major limitation (L groin and L lower back pain onset) Lumbar R Side-Bend: Minimal limitation Lumbar L Side-Bend: Moderate limitation Lumbar R Rotation: Minimal limitation Lumbar L Rotation: Minimal limitation LE Flexibility R Hamstring Flexibility: 80 degrees, -15 degrees at 90/90 position L Hamstring Flexibility: 80 degrees, -20 degrees at 90/90 position LE Strength Trunk Strength: 4-4+/5, Abdominal strength is 4-_4/5 R Hip Flexion (L2): 4+/5 R Hip ABduction: 4+/5 R Hip ADduction: (4-4+/5) R Knee Extension (L3): 5/5 R Knee Flexion: 4+/5 R Ankle Dorsiflexion (L4): 4+/5 R Ankle Plantar Flexion: 4+/5 L Hip Flexion (L2): 4+/5 L Hip ABduction: 4+/5 L Hip ADduction: (4-4+/5) L Knee Extension (L3): 5/5 L Knee Flexion: 4+/5 L Ankle Dorsiflexion (L4): 4+/5 L Ankle Plantar Flexion: 4+/5 Special Tests - Hip and Spine MINI Test: Right Negative, Left Positive FADDIR Test: Right Negative, Left Negative TREATMENT: Therapeutic Exercise: 1: Supine PPT x 15 2: Supine pelvic tilt with hip add sets x 15 3: Supine pelvic tilt with resisted hip abd with pink band x 15 4: SKTC x 5, hold 10 seconds 5: Alternating marching x 15 reps in hooklying with pink band 6: Heel slides x 15 reps each LE 7: Hip abduction 2 x 15 reps each LE 8: SAQ 2 x 15 reps each LE with 3 sec hold 9: Seated LAQ 2 x 15 reps each LE 10: Resisted knee flexion 2 x 15 reps each LE with pink band 11: Seated marching with abdominal set 2 x 15 reps each LE with pink band 12: Seated hamstring stretch with strap x 3 reps w/ 10 sec hold each LE Skilled Intervention: Skilled judgment was used in selection of appropriate interventions. Completed Progress Report for lumbar ROM, LE flexibility, trunk, abdominal and bilateral LE strength testing. Billing Therapeutic Exercise Treatment Minutes: 60 Skilled Treatment Time Minutes (timed and untimed codes): 60 Total Session Time (minutes): 71 Session Start Time : 1106 Session Stop Time : 1217 Endy Curran PT, MBA documented in this encounter [facility] 02-23-2024 Note [facility] 02-23-2024 History of Present illness Narrative Vicente Roach MD Department of Orthopaedics Orthopaedics [address] [facility] [address] Dept: [phone] Dept February 23, 2024 CHIEF COMPLAINT: New and Pain of the Left Hip and Referred by Dr. Herring (Last seen 01/06/17 biceps tendinitis ) HPI Patient here for evaluation left hip pain. Patient is having pain in his back at his belt level and can radiate down into his groin. He has to grab and lift his leg to get out of the car. X-rays done on 12/24/23. Patient has history of prostate cancer. He recently had his appendix removed on . Taking Ibuprofen for the pain and does help. ASSESSMENT: M47.26 Osteoarthritis of spine with radiculopathy, lumbar region (primary encounter diagnosis) M25.552, G89.29 Chronic left hip pain PLAN: Though he does have some mild changes in the left hip joint, he is not very symptomatic on exam or his history. For example, his lumbar spine has significantly more osteoarthritic and degenerative changes than the hip specifically. In order to troubleshoot this better, he could go through with a image guided injection to the left hip joint. My suspicion is more related to lumbar issues than hip. I consultation with pain management is likely most reasonable next along with the therapy that is scheduled. FOLLOW UP INSTRUCTIONS: As above OBJECTIVE: Mr. Luther Castillo is a pleasant 68 year old in no apparent distress. Gen:There were no vitals taken for this visit. nl development, non obese, no deformities ENT: Normocephalic, normal hearing, moist mucosa CV: Pulses:DP/PT= 2+ and symmetric, capillary refill < 2 secs, no peripheral edema/varicosities Skin: no rash, bruising or lesions. Good turgor. Psych: cooperative and appropriate, alert and oriented x 3, good mood and affect. Musculoskeletal: Patient is walking without antalgia. Very mild tenderness over the greater trochanter and short external rotators. Flexion and internal rotation of the hip only has very minimal and none reproducible symptoms. IMAGING: Impression IMPRESSION: 1. Known sclerotic osseous lesions 2. Degenerative changes Money Position Officer: [facility] Transcribe Date/Time: Dec 27 2023 8:22A Dictated by : PRANVA FIGUEROA MD This examination was interpreted and the report reviewed and electronically signed by: PRANAV FIGUEROA MD on Dec 27 2023 8:24AM EST Results-Findings * * *Final Report* * * DATE OF EXAM: Dec 24 2023 12:18PM WOX [id number] - XR HIP 3V PELV+ AP/LAT LT / PROCEDURE REASON: Left hip pain * * * * Physician Interpretation * * * * PROCEDURE: Pelvis and left hip INDICATION: Left hip pain .pain for 8 months in posterior left hip no inj TECHNIQUE: XR HIP 3V PELV+ AP/LAT LT COMPARISON: None FINDINGS: Multiple sclerotic lesions throughout the bony pelvis with a large one in the left ischial tuberosity. These were noted and discussed on recent CT from 12/10/2023. No acute destructive osseous lesion. Mild to moderate left hip osteoarthrosis. Advanced degenerative scoliosis in the lumbar spine. Sacroiliac joints and symphysis pubis are maintained. Significant vascular calcifications. Supporting Subjective Information Below: Past Medical History: PAST MEDICAL HISTORY Diagnosis Date Abdominal pain, left lower quadrant Actinic keratosis Allergic rhinitis, cause unspecified Allergic rhinitis Arthritis Benign neoplasm of rectum and anal canal BPH (benign prostatic hyperplasia) Elevated PSA Dr Mckeon Family history of malignant neoplasm of prostate 02/13/2017 Gastroesophageal reflux disease with esophagitis 10/09/2016 History of squamous cell carcinoma of skin 06/2017 left frontal scalp Iron deficiency anemia, unspecified Prostate cancer (HCC) Dr. 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 Seborrheic keratosis Vasovagal reaction 10/09/2016 Past Surgical History: PAST SURGICAL HISTORY Procedure Laterality Date APPENDECTOMY 02/05/2024 WC COLONOSCOPY 02/27/2022 COLONOSCOPY FLX DX W/COLLJ SPEC WHEN PFRMD 10/2006 Colonoscopy COLONOSCOPY FLX DX W/COLLJ SPEC WHEN PFRMD 03/06/2012 Colonoscopy COLONOSCOPY FLX DX W/COLLJ SPEC WHEN PFRMD 02/10/2017 5 year repeat DIAGNOSTIC ARTHROSCOPY SHOULDER +- SYNOVIAL BX Right 10/11/2016 Right shoulder arthroscopic rotator cuff debridement, biceps tenotomy EGD 02/27/2022 ESOPHAGOGASTRODUODENOSCOPY TRANSORAL DIAGNOSTIC 03/10/2008 EGD ESOPHAGOGASTRODUODENOSCOPY TRANSORAL DIAGNOSTIC 02/26/2016 EGD FRACTURE SURGERY PAST SURGICAL HISTORY OF right wrist surgery PAST SURGICAL HISTORY OF 10/05/2002 right carpal tunnel PAST SURGICAL HISTORY OF 10/19/2002 left carpal tunnel RECONSTRUCTION ROTATOR CUFF AVULSION CHRONIC Right 10/11/2016 Right shoulder subacromial decompression TONSILLECTOMY HX TONSILLECTOMY PRIMARY/SECONDARY <AGE 12 Tonsillectomy Family History: FAMILY HISTORY Problem Relation Age of Onset Arthritis Mother Prostate Cancer Father Dx late 70s/80s, metastatic Colon Cancer Sister Dx late 50s No Known Problems Sister Heart Attack Maternal Grandfather Prostate Cancer Paternal Uncle Metastatic Prostate Cancer Paternal cousin Two paternal 1st cousins (brothers to each other), sons of the uncle with cancer Social History: Social History Tobacco Use Smoking status: Former Current packs/day: 0.00 Average packs/day: 0.3 packs/day for 2.5 years (0.6 ttl pk-yrs) Types: Cigarettes Start date: 01/13/1971 Quit date: 07/13/1973 Years since quittin.6 Smokeless tobacco: Never Vaping Use Vaping status: Never Used Substance Use Topics Alcohol use: Not Currently Alcohol/week: 6.0 standard drinks of alcohol Types: 6 Cans of Beer (12oz) per week Comment: occasionally Drug use: No Medications: Current Outpatient Medications Medication Sig predniSONE (DELTASONE) 5 mg tablet TAKE 1 TABLET BY MOUTH TWICE DAILY dexAMETHasone (DECADRON) 4 mg tablet Take 1 tablet by mouth daily with breakfast. Take on mornings of injections tamsulosin (FLOMAX) 0.4 mg Take 1 capsule by mouth once daily. abiraterone 250 mg tablet TAKE 4 TABLETS (1,000MG) BY MOUTH ONCE DAILY ON AN EMPTY STOMACH 1 HOUR BEFORE OR 2 HOURS AFTER A MEAL atorvastatin (LIPITOR) 20 mg tablet Take 1 tablet by mouth daily at bedtime. For cholesterol. cimetidine (TAGAMET) 200 mg tablet Take 200 mg by mouth twice daily. calcium carbonate/vitamin D3 (CALCIUM + D ORAL) Take 1 tablet by mouth twice daily. cyclobenzaprine (FLEXERIL) 10 mg tablet Take 1 tablet by mouth two times a day as needed for muscle spasm. (Patient not taking: Reported on 02/23/2024) darbepoetin dagmar in albumn john (ARANESP INJECTION) by INJECTION(UNSPECIFIED PARENTERAL ROUTES) route every 4 weeks. PRN leuprolide acetate (ELIGARD SUBCUTANEOUS) Inject subcutaneously once every 6 months. denosumab (XGEVA SUBCUTANEOUS) Inject subcutaneously once every month. iv contrast (will be provided with radiology test) MRI Prostate Inject, intravenously, once for 1 dose. No IV access, insert saline lock prior to the beginning of sedation, infusion, injection of imaging exam. Discontinue saline lock post exam. If Pt. has a central line or IVAD, may access for administration according to line specific nursing protocol. Once exam is complete flush line and de-access according to line specific nursing protocol in the MR contrast administration guidelines link. No current facility-administered medications for this visit. Allergies: Ragweed Pollen ROS: General (negative for fatigue, malaise, weight loss/gain) HEENT (negative for headache, earache, recent vision changes, sinus pain, sore throat) Respiratory (no recent shortness of breath, hemoptysis) CV (negative for chest tightness, palpitations) Musculoskeletal (see HPI) Psych (no depression, anxiety) REFERRING PHYSICIAN: Consultation requested by Dr. Herring for an opinion regarding left hip pain. My final recommendations will be communicated back to the requesting physician by way of shared Medical record or letter to requesting physician via US mail. Dereje Herring [address] [facility] [address] Arsalan Ocampo MD [address] [facility] [address] Vicente Roach MD documented in this encounter [facility] 02-20-2024 Note HNO ID: [id number] Author: JOSE DAVID CEDENO PTA Service: ? Author Type: Icd 9 Coder Type: Progress Notes Filed: 02/20/2024 13:36 Note Text: Episode Visit Count: 5 Therapist That Will Accept/Oversee The Plan Of Care: Endy Curran PT, DERRICK Start of Care Date: 01/29/24 Onset Date: 05/08/23 (Flare up since about October 2023) Plan of Care Certification Date: 01/29/24 Next Certification Due Date: 03/19/24 Patient Identified by Name and Date of : Yes REHABILITATION AND SPORTS THERAPY PHYSICAL THERAPY TREATMENT NOTE ASSESSMENT: Luther Castillo tolerated the session with no issues. He demonstrated tolerance with all of the ex's today. Did not progress to shuttle or progress ex's beyond what he is currently performing due to recent abdominal surgery. The patient will continue to benefit from ongoing skilled physical therapy to progress toward set goals. PLAN FOR NEXT VISIT: Progress with further lumbar stabilization exercises with flexion bias. May trial shuttle next session as tolerated and add light resistance with pre's. SUBJECTIVE: Pt notes that he is still having increased hip pain on the L. He tolerated his last therapy session with only mild increase in discomfort following. He did not perform his ex's yesterday as he had injections/chemo yesterday and did not feel well. Pain: Pain Pain Level: 8 Pain Location: Hip - Left, Groin - Left, Low Back/Lumbar Spine - Left Description: Aching, Pressure Frequency: Walking, Standing Post Treatment Pain Post Treatment Pain Level: No Change OBJECTIVE MEASURES WITH LEVEL OF FUNCTION: No objective measure taken this date. TREATMENT: Therapeutic Exercise: 1: Supine PPT x 15 2: Supine pelvic tilt with hip add sets x 15 3: Supine pelvic tilt with resisted hip abd with pink band x 15 4: SKTC x 5, hold 10 seconds 5: Alternating marching x 15 reps in hooklying with pink band 6: Heel slides x 15 reps each LE 7: Hip abduction 2 x 15 reps each LE 8: SAQ 2 x 15 reps each LE with 3 sec hold 9: Seated LAQ 2 x 15 reps each LE 10: Resisted knee flexion 2 x 15 reps each LE with pink band 11: Seated marching with abdominal set 2 x 15 reps each LE with pink band 12: Seated hamstring stretch with strap x 3 reps w/ 10 sec hold each LE Skilled Intervention: Skilled judgment was used in selection of appropriate interventions. Correct performance of therapeutic exercises was facilitated with verbal and visual cuing. Billing Therapeutic Exercise Treatment Minutes: 45 Skilled Treatment Time Minutes (timed and untimed codes): 45 Total Session Time (minutes): 46 Session Start Time : 1146 Session Stop Time : 1232 Jose David Cedeno PTA [facility] 02-20-2024 History of Present illness Narrative Episode Visit Count: 5 Therapist That Will Accept/Oversee The Plan Of Care: Endy Curran, PT, DERRICK Start of Care Date: 01/29/24 Onset Date: 05/08/23 (Flare up since about October 2023) Plan of Care Certification Date: 01/29/24 Next Certification Due Date: 03/19/24 Patient Identified by Name and Date of : Yes REHABILITATION AND SPORTS THERAPY PHYSICAL THERAPY TREATMENT NOTE ASSESSMENT: Luther Castillo tolerated the session with no issues. He demonstrated tolerance with all of the ex's today. Did not progress to shuttle or progress ex's beyond what he is currently performing due to recent abdominal surgery. The patient will continue to benefit from ongoing skilled physical therapy to progress toward set goals. PLAN FOR NEXT VISIT: Progress with further lumbar stabilization exercises with flexion bias. May trial shuttle next session as tolerated and add light resistance with pre's. SUBJECTIVE: Pt notes that he is still having increased hip pain on the L. He tolerated his last therapy session with only mild increase in discomfort following. He did not perform his ex's yesterday as he had injections/chemo yesterday and did not feel well. Pain: Pain Pain Level: 8 Pain Location: Hip - Left, Groin - Left, Low Back/Lumbar Spine - Left Description: Aching, Pressure Frequency: Walking, Standing Post Treatment Pain Post Treatment Pain Level: No Change OBJECTIVE MEASURES WITH LEVEL OF FUNCTION: No objective measure taken this date. TREATMENT: Therapeutic Exercise: 1: Supine PPT x 15 2: Supine pelvic tilt with hip add sets x 15 3: Supine pelvic tilt with resisted hip abd with pink band x 15 4: SKTC x 5, hold 10 seconds 5: Alternating marching x 15 reps in hooklying with pink band 6: Heel slides x 15 reps each LE 7: Hip abduction 2 x 15 reps each LE 8: SAQ 2 x 15 reps each LE with 3 sec hold 9: Seated LAQ 2 x 15 reps each LE 10: Resisted knee flexion 2 x 15 reps each LE with pink band 11: Seated marching with abdominal set 2 x 15 reps each LE with pink band 12: Seated hamstring stretch with strap x 3 reps w/ 10 sec hold each LE Skilled Intervention: Skilled judgment was used in selection of appropriate interventions. Correct performance of therapeutic exercises was facilitated with verbal and visual cuing. Billing Therapeutic Exercise Treatment Minutes: 45 Skilled Treatment Time Minutes (timed and untimed codes): 45 Total Session Time (minutes): 46 Session Start Time : 1146 Session Stop Time : 1232 Jose David Cedeno PTA documented in this encounter [facility] 02-18-2024 Note HNO ID: [id number] Author: ROSEANNA HUGHES PTA Service: ? Author Type: Icd 9 Coder Type: Progress Notes Filed: 02/18/2024 14:13 Note Text: Episode Visit Count: 4 Therapist That Will Accept/Oversee The Plan Of Care: Endy Curran PT DERRICK Start of Care Date: 01/29/24 Onset Date: 05/08/23 (Flare up since about October 2023) Plan of Care Certification Date: 01/29/24 Next Certification Due Date: 03/19/24 Patient Identified by Name and Date of : Yes REHABILITATION AND SPORTS THERAPY PHYSICAL THERAPY TREATMENT NOTE ASSESSMENT: Luther Castillo tolerated the session with no issues. He demonstrated ability to perform PPT this date with no abdominal pain reported. Patient reported no change in pain at the end of the session The patient will continue to benefit from ongoing skilled physical therapy to progress toward set goals. PLAN FOR NEXT VISIT: Progress with further lumbar stabilization exercises with flexion bias. May trial shuttle next session as tolerated SUBJECTIVE: Patient reported that he was cleared yesterday from the surgeon with his recent appendectomy. He reported that his pain has not really changed. Pain: Pain Pain Level: 8 Pain Location: Hip - Left, Groin - Left, Low Back/Lumbar Spine - Left Description: Aching, Pressure Frequency: Continuous, With movement, Standing, Walking Post Treatment Pain Post Treatment Pain Level: No Change OBJECTIVE MEASURES WITH LEVEL OF FUNCTION: No objective measures taken this date. TREATMENT: Therapeutic Exercise: 1: Supine PPT x 15 (Increased reps and performed pelvic tilt this date) 2: Supine pelvic tilt with hip add sets x 15 3: Supine pelvic tilt with resisted hip abd with pink band x 15 4: SKTC x 5, hold 10 seconds (Not performed this date) 5: Alternating marching x 15 reps in hooklying with pink band 6: Heel slides x 15 reps each LE 7: Hip abduction 2 x 15 reps each LE (Increased reps) 8: SAQ 2 x 15 reps each LE with 3 sec hold 9: Seated LAQ 2 x 15 reps each LE 10: Resisted knee flexion 2 x 15 reps each LE with pink band 11: Seated marching with abdominal set 2 x 15 reps each LE with pink band 12: Seated hamstring stretch with strap x 3 reps w/ 10 sec hold each LE Skilled Intervention: Patient was educated in proper exercise technique and purpose for exercises. Skilled judgment was used in selection of appropriate interventions. Billing Therapeutic Exercise Treatment Minutes: 45 Skilled Treatment Time Minutes (timed and untimed codes): 45 Total Session Time (minutes): 45 Session Start Time : 1315 Session Stop Time : 1400 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 [facility] 02-18-2024 History of Present illness Narrative Episode Visit Count: 4 Therapist That Will Accept/Oversee The Plan Of Care: Endy Curran PT, DERRICK Start of Care Date: 01/29/24 Onset Date: 05/08/23 (Flare up since about October 2023) Plan of Care Certification Date: 01/29/24 Next Certification Due Date: 03/19/24 Patient Identified by Name and Date of : Yes REHABILITATION AND SPORTS THERAPY PHYSICAL THERAPY TREATMENT NOTE ASSESSMENT: Luther Castillo tolerated the session with no issues. He demonstrated ability to perform PPT this date with no abdominal pain reported. Patient reported no change in pain at the end of the session The patient will continue to benefit from ongoing skilled physical therapy to progress toward set goals. PLAN FOR NEXT VISIT: Progress with further lumbar stabilization exercises with flexion bias. August trial shuttle next session as tolerated SUBJECTIVE: Patient reported that he was cleared yesterday from the surgeon with his recent appendectomy. He reported that his pain has not really changed. Pain: Pain Pain Level: 8 Pain Location: Hip - Left, Groin - Left, Low Back/Lumbar Spine - Left Description: Aching, Pressure Frequency: Continuous, With movement, Standing, Walking Post Treatment Pain Post Treatment Pain Level: No Change OBJECTIVE MEASURES WITH LEVEL OF FUNCTION: No objective measures taken this date. TREATMENT: Therapeutic Exercise: 1: Supine PPT x 15 (Increased reps and performed pelvic tilt this date) 2: Supine pelvic tilt with hip add sets x 15 3: Supine pelvic tilt with resisted hip abd with pink band x 15 4: SKTC x 5, hold 10 seconds (Not performed this date) 5: Alternating marching x 15 reps in hooklying with pink band 6: Heel slides x 15 reps each LE 7: Hip abduction 2 x 15 reps each LE (Increased reps) 8: SAQ 2 x 15 reps each LE with 3 sec hold 9: Seated LAQ 2 x 15 reps each LE 10: Resisted knee flexion 2 x 15 reps each LE with pink band 11: Seated marching with abdominal set 2 x 15 reps each LE with pink band 12: Seated hamstring stretch with strap x 3 reps w/ 10 sec hold each LE Skilled Intervention: Patient was educated in proper exercise technique and purpose for exercises. Skilled judgment was used in selection of appropriate interventions. Billing Therapeutic Exercise Treatment Minutes: 45 Skilled Treatment Time Minutes (timed and untimed codes): 45 Total Session Time (minutes): 45 Session Start Time : 1315 Session Stop Time : 1400 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 PTA documented in this encounter [facility] 02-18-2024 Nurse Note Pt here for injection of Xgeva given SQ in the right arm and Aranesp given sq in left arm. Pt tolerated well. [facility] 02-18-2024 Nurse Note Pt here for injection of Xgeva given SQ in the right arm and Aranesp given sq in left arm. Pt tolerated well. documented in this encounter [facility] 02-13-2024 Note HNO ID: [id number] Author: ROSEANNA HUGHES PTA Service: ? Author Type: Icd 9 Coder Type: Progress Notes Filed: 02/13/2024 13:24 Note Text: Episode Visit Count: 3 Therapist That Will Accept/Oversee The Plan Of Care: Endy Curran PT, DRERICK Start of Care Date: 01/29/24 Onset Date: 05/08/23 (Flare up since about October 2023) Plan of Care Certification Date: 01/29/24 Next Certification Due Date: 03/19/24 Patient Identified by Name and Date of : Yes REHABILITATION AND SPORTS THERAPY PHYSICAL THERAPY TREATMENT NOTE ASSESSMENT: Luther Castillo tolerated the session with no issues. He demonstrated improvement with reps of exercises as tolerated. Patient did report some increased pain with supine exercises with improved pain when he sat up. The patient will continue to benefit from ongoing skilled physical therapy to progress toward set goals. PLAN FOR NEXT VISIT: Progress with further lumbar stabilization exercises with flexion bias with caution due to recent appendectomy on 02/05/2024. SUBJECTIVE: Patient reported that he was at the bank this a[place] and he was unable to go in and stand as his pain with standing would be at 8/10. He reported that his groin pain is starting to be as high as his back pain. Pain: Pain Pain Level: 8 Pain Location: Hip - Left, Groin - Left, Low Back/Lumbar Spine - Left Description: Aching, Pressure, Sharp Frequency: Continuous, With movement, Standing, Walking Post Treatment Pain Post Treatment Pain Level: Better OBJECTIVE MEASURES WITH LEVEL OF FUNCTION: No objective measures taken this date. TREATMENT: Therapeutic Exercise: 1: Supine abdominal sets x 10 2: Supine abdominal set with hip add sets x 15 (Increased reps) 3: Supine abdominal set with resisted hip abd with pink band x 15 (Increased reps) 4: SKTC x 5, hold 10 seconds 5: Alternating marching x 15 reps in hooklying with pink band (Increased reps) 6: Heel slides x 15 reps each LE (Increased reps) 7: Hip abduction x 10 reps each LE 8: SAQ 2 x 15 reps each LE with 3 sec hold (Increased reps) 9: Seated LAQ 2 x 15 reps each LE (Increased reps) 10: Resisted knee flexion 2 x 15 reps each LE with pink band (Increased reps) 11: Seated marching alteranting with abdominal set 2 x 15 reps each LE with pink band (Increased reps and added band) Skilled Intervention: Patient was educated in proper exercise technique and purpose for exercises. Skilled judgment was used in selection of appropriate interventions. Billing Therapeutic Exercise Treatment Minutes: 50 Skilled Treatment Time Minutes (timed and untimed codes): 50 Total Session Time (minutes): 50 Session Start Time : 1145 Session Stop Time : 1235 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 PTA [facility] 02-13-2024 History of Present illness Narrative Episode Visit Count: 3 Therapist That Will Accept/Oversee The Plan Of Care: Endy Curran PT, DERRICK Start of Care Date: 01/29/24 Onset Date: 05/08/23 (Flare up since about October 2023) Plan of Care Certification Date: 01/29/24 Next Certification Due Date: 03/19/24 Patient Identified by Name and Date of : Yes REHABILITATION AND SPORTS THERAPY PHYSICAL THERAPY TREATMENT NOTE ASSESSMENT: Luther Castillo tolerated the session with no issues. He demonstrated improvement with reps of exercises as tolerated. Patient did report some increased pain with supine exercises with improved pain when he sat up. The patient will continue to benefit from ongoing skilled physical therapy to progress toward set goals. PLAN FOR NEXT VISIT: Progress with further lumbar stabilization exercises with flexion bias with caution due to recent appendectomy on 02/05/2024. SUBJECTIVE: Patient reported that he was at the bank this a.m. and he was unable to go in and stand as his pain with standing would be at 8/10. He reported that his groin pain is starting to be as high as his back pain. Pain: Pain Pain Level: 8 Pain Location: Hip - Left, Groin - Left, Low Back/Lumbar Spine - Left Description: Aching, Pressure, Sharp Frequency: Continuous, With movement, Standing, Walking Post Treatment Pain Post Treatment Pain Level: Better OBJECTIVE MEASURES WITH LEVEL OF FUNCTION: No objective measures taken this date. TREATMENT: Therapeutic Exercise: 1: Supine abdominal sets x 10 2: Supine abdominal set with hip add sets x 15 (Increased reps) 3: Supine abdominal set with resisted hip abd with pink band x 15 (Increased reps) 4: SKTC x 5, hold 10 seconds 5: Alternating marching x 15 reps in hooklying with pink band (Increased reps) 6: Heel slides x 15 reps each LE (Increased reps) 7: Hip abduction x 10 reps each LE 8: SAQ 2 x 15 reps each LE with 3 sec hold (Increased reps) 9: Seated LAQ 2 x 15 reps each LE (Increased reps) 10: Resisted knee flexion 2 x 15 reps each LE with pink band (Increased reps) 11: Seated marching alteranting with abdominal set 2 x 15 reps each LE with pink band (Increased reps and added band) Skilled Intervention: Patient was educated in proper exercise technique and purpose for exercises. Skilled judgment was used in selection of appropriate interventions. Billing Therapeutic Exercise Treatment Minutes: 50 Skilled Treatment Time Minutes (timed and untimed codes): 50 Total Session Time (minutes): 50 Session Start Time : 1145 Session Stop Time : 1235 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 PTA documented in this encounter [facility] 02-11-2024 History of Present illness Narrative Program_ID:[id number] Access Code: [email or web address] URL: [email or web address] [email or web address] Date: 02-11-2024 Prepared By: ENDY CURRAN Program Notes Exercises - Supine Heel Slide - 1 x daily - 7 x weekly - 3 sets - 10 reps - Supine Hip Abduction - 1 x daily - 7 x weekly - 3 sets - 10 reps - Supine March - 1 x daily - 7 x weekly - 3 sets - 10 reps - Seated Long Arc Quad - 1 x daily - 7 x weekly - 3 sets - 10 reps Episode Visit Count: 2 Therapist That Will Accept/Oversee The Plan Of Care: Endy Curran PT, MBA Start of Care Date: 01/29/24 Onset Date: 05/08/23 (Flare up since about October 2023) Plan of Care Certification Date: 01/29/24 Next Certification Due Date: 03/19/24 Patient Identified by Name and Date of : Yes REHABILITATION AND SPORTS THERAPY PHYSICAL THERAPY TREATMENT NOTE ASSESSMENT: Luther Collin DuganJonathan tolerated the session with no increased pain. He demonstrated tolerance to exercises with slight change in exercises due to recent abdominal surgery. The patient will continue to benefit from ongoing skilled physical therapy to progress toward set goals. PLAN FOR NEXT VISIT: Progress with further lumbar stabilization exercises with flexion bias with caution due to recent appendectomy on 02/05/2024. SUBJECTIVE: Patient reported that his HEP has been limited in performance the past week due to having and appendicitis and then appendectomy on 02/05/2024. He reported that he tried the exercises but they increased his discomfort. Pain: Pain Pain Level: 8 Pain Location: Hip - Left, Groin - Left Description: Aching, Pressure Frequency: Continuous, With movement, Standing, Walking Post Treatment Pain Post Treatment Pain Level: No Change OBJECTIVE MEASURES WITH LEVEL OF FUNCTION: No objective measures taken this date. TREATMENT: Therapeutic Exercise: 1: Supine abdominal sets x 10 2: Supine abdominal set with hip add sets x 10 3: Supine abdominal set with resisted hip abd with pink band x 10 4: *SKTC x 5, hold 10 seconds (Not performed this date due to recent abdominal surgery) 5: *Alternating marching x 10 reps in hooklying 6: *Heel slides x 10 reps each LE 7: *Hip abduction x 10 reps each LE 8: SAQ x 10 reps each LE with 3 sec hold 9: *Seated LAQ x 10 reps each LE 10: *Resisted knee flexion x 10 reps each LE with pink band 11: *Seated marching alteranting with abdominal set x 10 reps each LE Skilled Intervention: Patient was educated in proper exercise technique and purpose for exercises. Reviewed and educated patient on additions/changes for home exercise program as above (*). Skilled judgment was used in selection of appropriate interventions. Home Exercise Program Assigned: 1: Access Code: [email or web address] URL: [email or web address] [email or web address] Date: 02/11/2024 Prepared by: ROSEANNA HUGHES Exercises - Supine Heel Slide - 1 x daily - 7 x weekly - 3 sets - 10 reps - Supine Hip Abduction - 1 x daily - 7 x weekly - 3 sets - 10 reps - Supine March - 1 x daily - 7 x weekly - 3 sets - 10 reps - Seated Long Arc Quad - 1 x daily - 7 x weekly - 3 sets - 10 reps Billing Therapeutic Exercise Treatment Minutes: 40 Skilled Treatment Time Minutes (timed and untimed codes): 40 Total Session Time (minutes): 40 Session Start Time : 1104 Session Stop Time : 1144 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 PTA documented in this encounter [facility] 02-11-2024 Note HNO ID: [id number] Author: ROSEANNA HUGHES PTA Service: ? Author Type: Icd 9 Coder Type: Progress Notes Filed: 02/11/2024 12:14 Note Text: Episode Visit Count: 2 Therapist That Will Accept/Oversee The Plan Of Care: Endy Curran PT, DERRICK Start of Care Date: 01/29/24 Onset Date: 05/08/23 (Flare up since about October 2023) Plan of Care Certification Date: 01/29/24 Next Certification Due Date: 03/19/24 Patient Identified by Name and Date of : Yes REHABILITATION AND SPORTS THERAPY PHYSICAL THERAPY TREATMENT NOTE ASSESSMENT: Luther Castillo tolerated the session with no increased pain. He demonstrated tolerance to exercises with slight change in exercises due to recent abdominal surgery. The patient will continue to benefit from ongoing skilled physical therapy to progress toward set goals. PLAN FOR NEXT VISIT: Progress with further lumbar stabilization exercises with flexion bias with caution due to recent appendectomy on 02/05/2024. SUBJECTIVE: Patient reported that his HEP has been limited in performance the past week due to having and appendicitis and then appendectomy on 02/05/2024. He reported that he tried the exercises but they increased his discomfort. Pain: Pain Pain Level: 8 Pain Location: Hip - Left, Groin - Left Description: Aching, Pressure Frequency: Continuous, With movement, Standing, Walking Post Treatment Pain Post Treatment Pain Level: No Change OBJECTIVE MEASURES WITH LEVEL OF FUNCTION: No objective measures taken this date. TREATMENT: Therapeutic Exercise: 1: Supine abdominal sets x 10 2: Supine abdominal set with hip add sets x 10 3: Supine abdominal set with resisted hip abd with pink band x 10 4: *SKTC x 5, hold 10 seconds (Not performed this date due to recent abdominal surgery) 5: *Alternating marching x 10 reps in hooklying 6: *Heel slides x 10 reps each LE 7: *Hip abduction x 10 reps each LE 8: SAQ x 10 reps each LE with 3 sec hold 9: *Seated LAQ x 10 reps each LE 10: *Resisted knee flexion x 10 reps each LE with pink band 11: *Seated marching alteranting with abdominal set x 10 reps each LE Skilled Intervention: Patient was educated in proper exercise technique and purpose for exercises. Reviewed and educated patient on additions/changes for home exercise program as above (*). Skilled judgment was used in selection of appropriate interventions. Home Exercise Program Assigned: 1: Access Code: [email or web address] URL: [email or web address] m/ Date: 02/11/2024 Prepared by: ROSEANNA HUGHES Exercises - Supine Heel Slide - 1 x daily - 7 x weekly - 3 sets - 10 reps - Supine Hip Abduction - 1 x daily - 7 x weekly - 3 sets - 10 reps - Supine March - 1 x daily - 7 x weekly - 3 sets - 10 reps - Seated Long Arc Quad - 1 x daily - 7 x weekly - 3 sets - 10 reps Billing Therapeutic Exercise Treatment Minutes: 40 Skilled Treatment Time Minutes (timed and untimed codes): 40 Total Session Time (minutes): 40 Session Start Time : 1104 Session Stop Time : 1144 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 [facility] 02-10-2024 Telephone encounter Note Prescription Refill Information The patient has been identified by name and date of : Yes Caregiver verified no other encounters exist for this prescription request: Yes Caregiver confirmed with patient/requestor that no other refills are due, in the near future, with this provider at this time: Yes The last office visit in the department: 01/21/2024 Does the patient have a future office visit with this provider/department: Yes Requested Prescriptions Pending Prescriptions Disp Refills predniSONE (DELTASONE) 5 mg tablet [Pharmacy Med Name: PREDNISONE 5MG TABLETS] 60 tablet 2 Sig: TAKE 1 TABLET BY MOUTH TWICE DAILY Abigail Ferrer LPN February 10, 2024 7:35 AM [facility] 02-10-2024 Miscellaneous Notes Prescription Refill Information The patient has been identified by name and date of : Yes Caregiver verified no other encounters exist for this prescription request: Yes Caregiver confirmed with patient/requestor that no other refills are due, in the near future, with this provider at this time: Yes The last office visit in the department: 01/21/2024 Does the patient have a future office visit with this provider/department: Yes Requested Prescriptions Pending Prescriptions Disp Refills predniSONE (DELTASONE) 5 mg tablet [Pharmacy Med Name: PREDNISONE 5MG TABLETS] 60 tablet 2 Sig: TAKE 1 TABLET BY MOUTH TWICE DAILY Abigail Ferrer LPN February 10, 2024 7:35 AM documented in this encounter [facility] 02-06-2024 Note [facility] Medical Records Department [address] [place] [address] Discharge Summary 02/06/24 0943 MR#: [id number] Acct: [id number] Name: LUTHER CASTILLO II Rep #: [id number] : 1955 68 From: Rohit Crawford MD PCP: Dr. López Ocampo MD Status:DIS CARLENE Location: [place] [id number] Providers Date of Admission: 02/05/24 Primary Care Physician: Dr. López Ocampo MD Reason For Visit: ACUTE APPENICITIS Diagnosis Discharge Diagnosis (1) Acute appendicitis: Status: Acute Code(s): K35.80 - Unspecified acute appendicitis Qualifiers: Acute appendicitis type: with localized peritonitis Appendicitis abscess presence: without abscess Appendicitis gangrene presence: without gangrene Appendicitis perforation presence: w ithout perforation Qualified Code(s): K35.30 - Acute appendicitis with localized peritonitis, without perforation or gangrene Plan: I am seeing this patient in conjunction with Dr. Crawford. He has also independently evaluated this patient. Patient with a 1 day history of waxing and waning right lower quadrant abdominal pain following a bowel movement. Patient notes chills and sweats with associated nausea and small amount of vomiting. He has stage [address] scan of ab/pel does confirm acute appendicitis. Plan for patient to proceed with a laparoscopic appendectomy with possible small bowel obstruction, possible open procedure with Dr. Crawford. Procedure details, risks and benefits have been explained. Patient and his have had the opportunity to ask and have questions answered. Patient verbally understands and agrees with the plan. It has been discussed that post-operatively the patient may need to be admitted for observation for pain control and IV fluids. Thank you for allowing us to participate in this patient's care. Medications at Discharge Home Medications abiraterone 250 mg tablet 1,000 mg PO DAILY prostate cancer 12/11/23 atorvastatin 20 mg tablet 20 mg PO DAILY cholesterol 12/11/23 prednisone 5 mg tablet 5 mg PO BID prostate 12/11/23 tamsulosin 0.4 mg capsule 0.4 mg PO DAILY prostate 12/11/23 cimetidine 200 mg tablet (Tagamet HB) 200 mg PO BID 02/05/24 denosumab 120 mg/1.7 mL (70 mg/mL) subcutaneous solution (Xgeva) 120 mg subcut .monthly 02/05/24 leuprolide acetate (6 month) 45 mg (6 month) subcutaneous syringe (Eligard) mg subcut 02/05/24 oxycodone 5 mg tablet 5 mg PO Q6H PRN PRN Pain Score 6-10 3 days #10 tabs 02/06/24 Hospital Course Operations appendectomy Procedures None Summary of Care Provided Hospital Course: Patient is a 68-year-old male who presented on 02/05/2024 with complaints of acute onset right lower quadrant abdominal pain that started shortly after a bowel movement. His emergency room workup showed evidence of leukocytosis and CT imaging was read as consistent with acute appendicitis. Indeed, patient's exam was consistent with this diagnosis so a laparoscopic appendectomy was recommended. Interestingly, patient had been seen in our emergency department a month and a half prior because CT imaging done for another indication had found incidental evidence of acute appendicitis. However, at that time patient had no symptoms and outpatient follow-up was recommended but never undertaken by the patient. With this information patient was informed this could have bearing on his final surgical pathology or the final operation to be performed, but this was counterbalanced by the fact that he is on systemic steroids and we sought to limit the extent of his surgery so as to invite the least amount of infection/leak risk as possible. Procedure was undertaken uneventfully evening of 02/05/2024 but patient was admitted to the hospital floor postoperatively for some additional antibiotic therapy as I encountered significant serositis to the distal small bowel and proximal colon. Evening of postoperative day 0 patient reported significant improvement of his symptoms. Seen again on postoperative day 1 patient stated that his abdomen felt very well but complained of right shoulder pain which was felt to be some retained CO2 insufflation. He was recommended to just increase his activity level and reassured that this would be expected to improve with time. He was also advanced to a regular diet which she tolerated well. Surprisingly, his morning labs showed a significant decrease in his hemoglobin from when it was checked during his emergency room visit. So significant was a drop that I opted to recheck the level with a repeat lab and this level was confirmed. Without a significant change in his vital signs though and any symptoms of anemia I opted to monitor him for several more hours and then informed him that we would go through of discharge but obtain a pre-clinic level when he arrived for short-term follow-up with me as an outpatient. I den (more content not included)... [facility] 02-05-2024 Telephone encounter Note Images from the original note were not included. TATE approved and patient was notified via voicemail Grace Julio MA [facility] 02-05-2024 Miscellaneous Notes Images from the original note were not included. TATE approved and patient was notified via voicemail Grace Julio MA Submitted [facility] to [facility] for cyclobenzaprine Chen: [id number] Grace Julio MA documented in this encounter [facility] 02-05-2024 Note [facility] Medical Records Department [address] [place] [address] History Physical Exam 02/05/24 1352 MR#: [id number] Acct: [id number] Name: LUTHER CASTILLO II Rep #: [id number] : 1955 68 From: Derrek YBARRA PA-C PCP: Dr. López Ocampo MD Status:REG [facility] [place] Location: [facility] AC-TBA-1 HPI - General General Date of Admission: 02/05/24 Date of Service: 02/05/24 Chief Complaint: Right lower quadrant abdominal pain HPI Narrative LUTHER CASTILLO, is a 68 M who presents with 1 day history of right lower quadrant abdominal pain. Patient notes he woke up this morning at 0530 with achiness in his abdominal. 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 When he returned home he felt the urge to have a bowel movement. Following the bowel movement, he had an acute onset of severe abdominal pain. He notes since that time the pain would come on in waves. He states the pain was so severe that he had his bring him to the hospital. He notes pain was associated with nausea and a small amount of vomiting. He notes feeling hot and chills intermittently. He has a history of stage 4 prostate cancer with mets to the bone. He notes he follows with oncology from [facility]. He denies being on any active chemotherapy at this time. He notes taking hormone injections. Patient notes the prostates was inoperable. He denies having any abdominal surgeries previously. He denies any medication allergies, cardiac history of pulmonary history. He has chronic anemia which he takes an injection for. he is on prednisone and dexamethasone. Patient was in the ED at the beginning of December with an incidental finding of acute appendicitis on routine CT scan of the ab/pel without any abdominal pain. Patient at that time did not have a white count. Dr. Robledo had reviewed the CT scan and noted he would be able to follow-up with him as an outpatient. Patient states he never followed up because he was not having any pain. He notes his last colonoscopy was approximately 3 years ago. He notes obtaining colonoscopies every [address] scan of the ab/pel w/o contrast demonstrated acute appendicitis, linear scarring at the lung bases, nonspecific mild degree of bilateral perinephric stranding. Patient has a white count of 11.7 with no left shift. PFSH Home Medications ???Medication ???Instructions ???Recorded ???Last Taken ???Type abiraterone 250 mg tablet 1,000 mg PO DAILY prostate cancer 12/11/23 Unknown History atorvastatin 20 mg tablet 20 mg PO DAILY cholesterol 12/11/23 Unknown History prednisone 5 mg tablet 5 mg PO BID prostate 12/11/23 Unknown History tamsulosin 0.4 mg capsule 0.4 mg PO DAILY prostate 12/11/23 Unknown History cimetidine 200 mg tablet (Tagamet 200 mg PO BID 02/05/24 Unknown History HB) denosumab 120 mg/1.7 mL (70 mg/mL) 120 mg subcut .monthly 02/05/24 Unknown History subcutaneous solution (Xgeva) leuprolide acetate (6 month) 45 mg mg subcut 02/05/24 Unknown History (6 month) subcutaneous syringe (Eligard) Allergy/AdvReac Type Severity Reaction Status Date / Time No Known Allergies Allergy Verified 02/05/24 09:38 Social History Smoking Status: Never smoker ROS Constitutional Constitutional: Reports systems reviewed and no addt'l complaints, except as documented Eyes Eyes: Reports systems reviewed and no addt'l complaints, except as documented ENT HEENT: Reports systems reviewed and no addt'l complaints, except as documented Cardiovascular Cardiovascular: Reports systems reviewed and no addt'l complaints, except as documented Respiratory/Chest Respiratory/Chest: Reports systems reviewed and no addt'l complaints, except as documented Gastrointestinal Gastrointestinal: Reports systems reviewed and no addt'l complaints, except as documented Genitourinary Genitourinary: Reports systems reviewed and no addt'l complaints, except as documented Musculoskeletal Musculoskeletal: Reports back pain Integumentary Integumentary: Reports systems reviewed and no addt'l complaints, except as documented Neurologic Neurologic: Reports systems reviewed and no addt'l complaints, except as documented Psychiatric Psychiatric: Reports systems reviewed and no addt'l complaints, except as documented Endocrine Endocrinology: Reports systems reviewed and no addt'l complaints, except as documented Hematologic/Lymphatic Hematologic/Lymphatic: Reports systems reviewed and no addt'l complaints, except as documented Allergic/Immunologic Allergic/Immunologic: Reports systems reviewed and no addt'l complaints, except as documented Vital Signs Vital Signs Vital Signs: 02/05/24 09:38 02/05/24 11:38 02/05/24 13:00 Temperature 98 F Temperature Source Oral Puls (more content not included)... [facility] 02-05-2024 Telephone encounter Note Submitted PA to [facility] for cyclobenzaprine Chen: [id number] rGace Julio MA [facility] 02-03-2024 Telephone encounter Note Phoned patient and reviewed results with him. Patient voiced understanding. Sienna Avila LPN [facility] 02-03-2024 Miscellaneous Notes Phoned patient and reviewed results with him. Patient voiced understanding. Sienna Avila LPN ----- Message from Arsalan Ocampo MD sent at 02/03/2024 3:09 PM EDT ----- Normal scrotal US aside from 1 mm right testicular calcification which is benign. No abnormalities in left groin. documented in this encounter [facility] 02-03-2024 Telephone encounter Note ----- Message from Arsalan Ocampo MD sent at 02/03/2024 3:09 PM EDT ----- Normal scrotal US aside from 1 mm right testicular calcification which is benign. No abnormalities in left groin. [facility] 02-03-2024 History of Present illness Narrative Radiology Service Progress Note PATIENT NAME: Luther Castillo DATE OF SERVICE: February 03, 2024 TIME: 2:56 PM PATIENT IDENTITY VERIFICATION COMPLETED USING TWO (2) IDENTIFIERS: Name and Date of confirmed by patient verbally. FALL SCREENING: Has the patient had 2 falls in the last year or 1 fall with injury or currently using an Ambulatory Assistive Device (Walker, Cane, Wheelchair, Crutches, etc.)? No PATIENT GENDER DATA: Male PATIENT RELEVANT IMPLANT DATA REVIEWED: Not Applicable PATIENT PRESENTS WITH AN IMPLANTABLE OR ATTACHED ROLL ICER MACHINE: No RADIOLOGY DEPARTMENT: Ultrasound PERIPHERAL IV DATA: Not applicable SIGNED BY: Jazzmine [address] Rdms February 03, 2024 2:56 PM documented in this encounter [facility] 02-03-2024 Note [facility] 02-03-2024 Instructions Sienna Avila LPN - 02/03/2024 10:19 AM EDT Screening schedule The following prevention plan is recommended: Depression Screening Never done Anxiety Screening Never done Advance Directive Discussion due on 04/07/2023 WHAT YOU CAN DO TO PREVENT FALLS Many falls can be prevented. By making some changes, you can lower your chances of falling. Four things YOU can do to prevent falls for you* and your caregiver 1. Begin a regular exercise program Exercise is one of the most important ways to lower your chances of falling. It makes you stronger and helps you feel better. Exercises that improve balance and coordination (like Tha Chi) are the most helpful. Lack of exercise leads to weakness and increases your chances of falling. Ask your doctor or health care provider about the best type of exercise program for you. 2. Have your health care provider review your medicines Have your doctor or pharmacist review all the medicines you take, even [id number] medicines. As you get older, the way medicines work in your body can change. Some medicines, or combinations of medicines, can make you sleepy or dizzy and can cause you to fall. 3. Have your vision checked Have your eyes checked by an eye doctor at least once a year. You may be wearing the wrong glasses or have a condition like glaucoma or cataracts that limits your vision. Poor vision can increase your chances of falling. 4. Make your home safer About half of all falls happen at home. To make your home safer: Remove things you can trip over (like papers, books, clothes, and shoes) from stairs and places where you walk. Remove small throw rugs or use double-sided tape to keep the rugs from slipping. Keep items you use often in cabinets you can reach easily without using a step stool. Have grab bars put in next to your toilet and in the tub or shower. Use non-slip mats in the bathtub and on shower floors. Improve the lighting in your home. As you get older, you need brighter lights to see well. Hang light-weight curtains or shades to reduce glare. Have handrails and lights put in on all staircases. Wear shoes both inside and outside the house. Avoid going barefoot or wearing slippers. For more information, contact: Centers for Disease Control and Prevention www.cdc.gov/injury * This information may not apply if you have certain medical conditions. documented in this encounter [facility] 02-03-2024 Note [facility] 02-03-2024 History of Present illness Narrative Chief Complaint Patient presents with: Groin Pain HPI Luther Castillo is a 68 year old male who presents here today for Above Complaints. Patient complaining of left groin pain which started about 1 month ago without injury to the area. Described as constant throughout the day. When sitting he describes it as an aching/throbbing pain, but becomes sharp when standing. Today, is 9/10 with ambulation. Not treating with anything OTC for pain. Admits to possible bulge in left groin. Denies radiation, fever/chills, nausea, vomiting, diarrhea, constipation, hematochezia, melena, new urinary symptoms. Evaluated by Catherine Podlogar 1 month ago for left hip pain and was referred to PT. Patient just started last week without improvement thus far. Has appointment with Dr. Roach next month for this as well. Patient also notes that he was evaluated at [facility] ED on 12/18 for possible appendicitis noted on CT lumbar spine. CT abdomen and pelvis was not obtained. CBC, CMP, lipase were normal. Discharged home with recommendation to f/u with Dr. Robledo for CT abd/pelvis which has not been completed. Denies RLQ abdominal pain today. Past medical history, appointments, medications, allergies reviewed. Previous Medical History PAST MEDICAL HISTORY Diagnosis Date Abdominal pain, left lower quadrant Actinic keratosis Allergic rhinitis, cause unspecified Allergic rhinitis Arthritis Benign neoplasm of rectum and anal canal BPH (benign prostatic hyperplasia) Elevated PSA Dr Mckeon Family history of malignant neoplasm of prostate 02/13/2017 Gastroesophageal reflux disease with esophagitis 10/09/2016 History of squamous cell carcinoma of skin 06/2017 left frontal scalp Iron deficiency anemia, unspecified Prostate cancer (HCC) Dr. 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 Seborrheic keratosis Vasovagal reaction 10/09/2016 Previous Surgical History PAST SURGICAL HISTORY Procedure Laterality Date COLONOSCOPY 02/27/2022 COLONOSCOPY FLX DX W/COLLJ SPEC WHEN PFRMD 10/2006 Colonoscopy COLONOSCOPY FLX DX W/COLLJ SPEC WHEN PFRMD 03/06/2012 Colonoscopy COLONOSCOPY FLX DX W/COLLJ SPEC WHEN PFRMD 02/10/2017 5 year repeat DIAGNOSTIC ARTHROSCOPY SHOULDER +- SYNOVIAL BX Right 10/11/2016 Right shoulder arthroscopic rotator cuff debridement, biceps tenotomy EGD 02/27/2022 ESOPHAGOGASTRODUODENOSCOPY TRANSORAL DIAGNOSTIC 03/10/2008 EGD ESOPHAGOGASTRODUODENOSCOPY TRANSORAL DIAGNOSTIC 02/26/2016 EGD FRACTURE SURGERY PAST SURGICAL HISTORY OF right wrist surgery PAST SURGICAL HISTORY OF 10/05/2002 right carpal tunnel PAST SURGICAL HISTORY OF 10/19/2002 left carpal tunnel RECONSTRUCTION ROTATOR CUFF AVULSION CHRONIC Right 10/11/2016 Right shoulder subacromial decompression TONSILLECTOMY HX TONSILLECTOMY PRIMARY/SECONDARY <AGE 12 Tonsillectomy Family History FAMILY HISTORY Problem Relation Age of Onset Arthritis Mother Prostate Cancer Father Dx late 70s/80s, metastatic Colon Cancer Sister Dx late 50s No Known Problems Sister Heart Attack Maternal Grandfather Prostate Cancer Paternal Uncle Metastatic Prostate Cancer Paternal cousin Two paternal 1st cousins (brothers to each other), sons of the uncle with cancer Patient Allergies ALLERGIES Allergen Reactions Ragweed Pollen Other: See Comments Watering/itchy eyes Current Medications Current Outpatient Medications on File Prior to Visit Medication Sig dexAMETHasone (DECADRON) 4 mg tablet Take 1 tablet by mouth daily with breakfast. Take on mornings of injections tamsulosin (FLOMAX) 0.4 mg Take 1 capsule by mouth once daily. predniSONE (DELTASONE) 5 mg tablet take 1 tablet by mouth twice daily darbepoetin dagmar in albumn john (ARANESP INJECTION) by INJECTION(UNSPECIFIED PARENTERAL ROUTES) route every 4 weeks. PRN abiraterone 250 mg tablet TAKE 4 TABLETS (1,000MG) BY MOUTH ONCE DAILY ON AN EMPTY STOMACH 1 HOUR BEFORE OR 2 HOURS AFTER A MEAL atorvastatin (LIPITOR) 20 mg tablet Take 1 tablet by mouth daily at bedtime. For cholesterol. cimetidine (TAGAMET) 200 mg tablet Take 200 mg by mouth twice daily. calcium carbonate/vitamin D3 (CALCIUM + D ORAL) Take 1 tablet by mouth twice daily. leuprolide acetate (ELIGARD SUBCUTANEOUS) Inject subcutaneously once every 6 months. denosumab (XGEVA SUBCUTANEOUS) Inject subcutaneously once every month. iv contrast (will be provided with radiology test) MRI Prostate Inject, intravenously, once for 1 dose. No IV access, insert saline lock prior to the beginning of sedation, infusion, injection of imaging exam. Discontinue saline lock post exam. If Pt. has a central line or IVAD, may access for administration according to line specific nursing protocol. Once exam is complete flush line and de-access according to line specific nursing protocol in the MR contrast administration guidelines link. No current facility-administered medications on file prior to visit. Social History Social History Tobacco Use Smoking status: Former Current packs/day: 0.00 Average packs/day: 0.3 packs/day for 2.5 years (0.6 ttl pk-yrs) Types: Cigarettes Start date: 01/13/1971 Quit date: 07/13/1973 Years since quittin.5 Smokeless tobacco: Never Vaping Use Vaping status: Never Used Substance Use Topics Alcohol use: Not Currently Alcohol/week: 6.0 standard drinks of alcohol Types: 6 Cans of Beer (12oz) per week Comment: occasionally Drug use: No Review of Symptoms REVIEW OF SYSTEMS See HPI EXAM: BP 118/58 Pulse 93 Resp 16 Wt 68 kg (150 lb) SpO2 99% BMI 23.49 kg/m General Appearance: Well appearing, alert, in no acute distress, well-hydrated, well nourished.. Skin: Skin color, texture, turgor normal, no suspicious rashes or lesions. Lungs: Lungs clear to auscultation. No wheezing, rhonchi, rales.. Heart: RRR without murmur, gallop, or rubs. No ectopy. Abdomen: Normal abdominal exam, Abdomen soft, non-tender. Bowel sounds normal. No masses, organomegaly. Genitalia: Penis normal. No urethral discharge. Scrotum normal to palpation. No hernia.. The sensitive examination was discussed with the Patient or Patient's Authorized Muffle Operator. As applicable, any other physician, advance practice provider, medical student, or other health professional student that will be observing or involved in the sensitive examination for educational or training purposes was discussed with the Patient or Authorized Muffle Operator. The Patient or Authorized Muffle Operator has agreed to proceed with the sensitive examination. (Sensitive examination includes inspection and/or palpation of the breasts, pelvis, prostate and anorectal regions) Health Maintenance List Depression Screening Never done Anxiety Screening Never done Advance Directive Discussion due on 04/07/2023 Diabetes Screening due on 01/20/2027 Colorectal Cancer Screening due on 02/27/2027 Lipid Screening due on 06/10/2028 DTaP,Tdap,Td Vaccine(4 - Td or Tdap) due on 09/23/2032 Abdominal Aortic Aneurysm Screening Completed Influenza Vaccine Completed RSV Vaccine Completed Hepatitis C Screening Completed Shingrix Vaccine Completed Covid-19 Vaccine Completed Pneumococcal Vaccine: 65+ Completed HPV Vaccine Aged Out Data reviewed Latest Ref Rng 12/17/2023 01/21/2024 WBC 3.70 - 11.00 k/uL 4.40 6.18 RBC 4.20 - 6.00 m/uL 3.79 (L) 3.76 (L) Hemoglobin 13.0 - 17.0 g/dL 9.4 (L) 9.2 (L) Hematocrit 39.0 - 51.0 % 30.6 (L) 30.6 (L) MCV 80.0 - 100.0 fL 80.7 81.4 MCH 26.0 - 34.0 pg 24.8 (L) 24.5 (L) MCHC 30.5 - 36.0 g/dL 30.7 30.1 (L) RDW-CV 11.5 - 15.0 % 20.4 (H) 20.1 (H) Platelet Count 150 - 400 k/uL 203 178 MPV 9.0 - 12.7 fL 8.4 (L) 8.3 (L) Neut% % 47.3 49.1 Abs Neut (ANC) 1.45 - 7.50 k/uL 2.08 3.03 Lymph% % 40.7 38.3 Abs Lymph 1.00 - 4.00 k/uL 1.79 2.37 Ferry% % 6.1 6.5 Abs Ferry <0.87 k/uL 0.27 0.40 Eosin% % 5.2 5.5 Abs Eosin <0.46 k/uL 0.23 0.34 Baso% % 0.5 0.3 Abs Baso <0.11 k/uL <0.03 <0.03 Immature Gran % % 0.2 0.3 IMMATURE GRANS (ABS) <0.10 k/uL <0.03 <0.03 NRBC /100 WBC 0.0 0.0 Absolute nRBC <0.01 k/uL <0.01 <0.01 DTYPE Auto Auto Glucose 74 - 99 mg/dL 151 (H) 95 BUN 9 - 24 mg/dL 17 15 Creatinine 0.73 - 1.22 mg/dL 0.96 0.95 Sodium 136 - 144 mmol/L 140 138 Potassium 3.7 - 5.1 mmol/L 4.0 4.0 Chloride 98 - 107 mmol/L 103 104 CO2 22 - 30 mmol/L 26 26 Anion Gap 8 - 15 mmol/L 11 8 Calcium 8.5 - 10.2 mg/dL 9.2 9.1 eGFR >=60 mL/min/1.73m 85 86 Legend: (L) Low (H) High ASSESSMENT/PLAN: 1. Left inguinal pain - ICD9: 789.04, ICD10: R10.32 (primary diagnosis) Suspect pain radicular from his back or related to known lytic lesions on his hip 2/2 mets from prostate cancer. Will obtain testicular US to rule out torsion and confirm no hernia. Continue with treatment as recommended by PT and f/u with ortho for pain. Will start flexeril PRN. May use tylenol, ice/heat for pain. Red flags for re-assessment reviewed with patient in detail. - US SCROTUM AND CONTENTS - US DOPPLER COMPLETE - CYCLOBENZAPRINE 10 MG TABLET 2. Spinal stenosis of lumbar region, unspecified whether neurogenic claudication present - ICD9: 724.02, ICD10: M48.061 See above. Arsalan Ocampo MD documented in this encounter [facility] 01-29-2024 History of Present illness Narrative Program_ID:[id number] Access Code: [email or web address] URL: [email or web address] Date: 01-29-2024 Prepared By: ENDY CURRAN Program Notes Exercises - Supine Posterior Pelvic Tilt - 2 x daily - 7 x weekly - 1-2 sets - 10 reps - Posterior Pelvic Tilt with Adduction Using Pillow in Hooklying - 2 x daily - 7 x weekly - 1-2 sets - 10 reps - Hooklying Clamshell with Resistance - 2 x daily - 7 x weekly - 1-2 sets - 10 reps - Supine Double Knee to Chest - 2 x daily - 7 x weekly - 1 sets - 5 reps Episode Visit Count: 1 Therapist That Will Accept/Oversee The Plan Of Care: Endy Curran PT, DERRICK Start of Care Date: 01/29/24 Onset Date: 05/08/23 (Flare up since about October 2023) Plan of Care Certification Date: 01/29/24 Next Certification Due Date: 03/19/24 Patient Identified by Name and Date of : Yes REHABILITATION AND SPORTS THERAPY PHYSICAL THERAPY EVALUATION PLAN OF CARE: Assessment: Luther Castillo presents with chief complaint of chronic L hip, groin, and L lower back pain that interferes with standing, walking in the house, walking in the community, cleaning, grooming, dressing, bed mobility (Difficulty showering to reach behind the L side, dressing L LE and with car transfers needing UE to lift L LE into the car. Mild difficulty shifting L LE for bed mobility tasks.) . The patient presents with impairments in ADL's, independence in exercise, overall function, patient reported outcome measures, posture, range of motion, strength, and symptom management. PROMIS (Patient-Reported Outcomes Measurement Information System) scores were reviewed and identified as a rehabilitation concern. Prognosis for therapy is Good due to: current objective clinical presentation, good overall health status, good support system/ coping skills, Prognosis may be limited due to chronic nature of impairments . Patient presents with positive R MINI test, decreased lumbar ROM, decreased trunk/abdominal strengths and I suspect L hip pain may be due to lumbar radicular symptoms. The patient will benefit from skilled therapy services to meet the goals established for this plan of care as noted below. Goals for Episode of Care: established 01/29/24 Patient reported outcome of physical function will increase T-score by a minimum 5 points. Patient to be independent in home exercise program for low back ROM and lumbar stabilization and LE strengthening exercises to return patient to prior level of function and reduce L hip pain. Patient will decrease lower back and L LE radicular pain to 0-3/10 at rest and with functional activities to allow patient to improve ambulation, transfers, and standing tolerance for ADLs. Patient will increase active ROM of lumbar spine to minimal to moderate limitation overall to allow pt to improve performance of ADLs. Patient will demonstrate increase in trunk, abdominal and bilateral LE strengths to 4+ to 4+-5/5 during manual muscle testing in order to improve function for home management tasks, light functional tasks, and prior functional tasks. Perform most home management and ADL tasks with decreased report of symptoms/pain in 4-6 weeks. Patient Goals: To decrease lower back and L hip pain Time Frame for Goals and Treatment : 03/19/24 Planned Interventions, Frequency, and Duration: Current Frequency: 2x/week Duration: 6 weeks Total Number of Visits Planned: 12 Planned Treatment Interventions: Therapeutic exercise (96593), Manual therapy (50908), Therapeutic activities (93950), Self-penitentiary management (38307), Patient/Family/Caregiver Education, Body Mechanics Training PLAN FOR NEXT VISIT: Review HEP and progress with further lumbar stabilization exercises with flexion bias. Patient demonstrates good understanding of plan of care and treatment. The above goals and plan of care were discussed and agreed upon by patient/family. SUBJECTIVE: Patient states that he has had constant L hip pain for about 8 months duration with recent flare up since about October 2023. It was initially intermittent dull ache along the L side belt line that kept him from walking for exercise and had difficulty with bednign over to shower or doing overhead tasks. This L hip pain is now constant in nature and is dull and aching. He saw Catherine Podlogluba, COMMUNITY LIAISON OFFICER, DIRECTOR OF HEALTH CARE MARKETING and since that time he has had a terrible, cutting pain in the L groin. He will see Dr. Ocampo, his PCP, next week. He has been taking Ibuprofen and Tylenol, which may help a little during the day. He also had remote history of lower back GIOVANNY. He states that he has prostate CA and was referred to Dr. Vicente Roach. He did have recent L hip x-rays and he was told that his symptoms are more arthritic related. Patient Goals: To decrease lower back and L hip pain Functional Limitations: standing, walking in the house, walking in the community, cleaning, grooming, dressing, bed mobility (Difficulty showering to reach behind the L side, dressing L LE and with car transfers needing UE to lift L LE into the car. Mild difficulty shifting L LE for bed mobility tasks.) Prior Level of Function: Independent with restrictions Independent with the following restrictions: Unable to walk with his , walk to the mailbox, stand to fill water pitcher. Difficulty with kitchen chores and will stop and sit for a while. Relevant History Past Relevant Medical Conditions: Prostate Disease, Anemia (Refractory anemia with monthly injections) Past Relevant Surgical Conditions: Comments Relevant Surgical Conditions Comments: Prior R shoulder arthroscopy in 2016, bilateral carpal tunnel repairs in 2002 Intake Information: Prescription present Previous Treatment: NSAIDs , Heat , Topicals (Ibuprofen and Tylenol, pain patches) Falls Interview: No positive findings with falls interview Pain: Pain Pain Level: 7 Pain Location: Hip - Left, Groin - Left Description: Cutting, Sharp, Shooting, Stabbing, Dull, Aching (L groin pain is sharp, shooting, stabbing, cutting. Dull and aching lower back pain) Frequency: Continuous, With movement, Standing, Walking Detailed Pain Score: Yes Worst Pain Level: 9 Average Pain Level: 8 Best Pain Level: 0 PROMIS Scales 01/28/2024 Higher is Better Phys Func - Score 29 (severe dysfunction) Phys Func - Percentile 2 Self-Eff Symptom - Score 32 (Low) Self-Eff Symptom - Percentile 4 T-scores: mean of general population = 50. 5 points is clinically meaningfully difference Percentiles provide an indication of how the patient's score ranks in relation to the general population. Higher percentile rankings indicate better function/quality of life. 50th percentile is the average of the general population and indicates half of respondents had a worse score. OBJECTIVE MEASURES WITH LEVEL OF FUNCTION: Posture / Alignment Posture: Forward head, Rounded shoulders, Decreased lumbar lordosis, Scoliosis Scoliosis comment: Mild S shaped curvature noted in mid thoracic region Hip Observations R Hip Palpation Tenderness: No tenderness noted L Hip Palpation Tenderness: Gluteals, Piriformis Sensation - Lower Extremity LE Light Touch Sensation: Grossly Intact Lumbar Spine AROM Lumbar Flexion: Moderate limitation Lumbar Extension: Major limitation Lumbar R Side-Bend: Minimal limitation Lumbar L Side-Bend: Moderate limitation Lumbar R Rotation: Minimal limitation Lumbar L Rotation: Minimal limitation LE AROM R Hip Flexion: 110 Degrees R Hip ABduction: 45 Degrees R Hip Internal Rotation: 20 Degrees R Hip External Rotation: 40 Degrees L Hip Flexion: 110 Degrees L Hip ABduction : 45 Degrees (Mild pain through ROM) L Hip Internal Rotation: 20 Degrees L Hip External Rotation: 40 Degrees Lumbar Spine Evaluated?: Yes LE Flexibility Flexibility: Hamstring Flexibility R Hamstring Flexibility: 80 degrees, -15 degrees at 90/90 position L Hamstring Flexibility: 80 degrees, -20 degrees at 90/90 position LE Strength Trunk Strength: 4/5, Abdominal strength is 4/5 R Hip Flexion (L2): 4+/5 R Hip ABduction: (4-4+/5) R Hip ADduction: (4-4+/5) R Hip Internal Rotation: 4+/5 R Hip External Rotation: 4+/5 R Knee Extension (L3): 5/5 R Knee Flexion: 4+/5 R Ankle Dorsiflexion (L4): (4-4+/5) R Ankle Plantar Flexion: 4+/5 L Hip Flexion (L2): 4+/5 (Denies L hip pain with testing) L Hip ABduction: (4-4+/5) L Hip ADduction: 4/5 L Hip Internal Rotation: 4/5 L Hip External Rotation: 4+/5 L Knee Extension (L3): 5/5 L Knee Flexion: 4+/5 L Ankle Dorsiflexion (L4): 4/5 L Ankle Plantar Flexion: 4+/5 Special Tests - Hip and Spine Hip and Spine Special Tests: MINI Test, FADDIR Test MINI Test: Right Positive, Left Negative FADDIR Test: Right Negative, Left Negative Gait Weight Bearing Status: FWB Gait: Independent Education: Education Learning Preferences: Demonstration, Explanation, Performance, Printed Materials Barriers: Acuity of Illness Learning/educational needs: Home exercise program, Plan of Care, Changes in Plan of Care, Body Mechanics Education Provided: Yes, see treatment interventions for education provided Education Mode/Type: Demonstration, Explanation/Discussion, Literature/Printed Materials, Performance Response to Education/Teach Back: States/Identifies, Return Demonstration TREATMENT: PT Treatment Interventions: Therapeutic Exercise Evaluation Therapeutic Exercise: 1: *Supine posterior pelvic tilt x 10 2: *Supine pelvic tilt with hip add sets x 10 3: *Supine pelvic tilt with resisted hip abd with pink band x 10 4: *SKTC x 5, hold 10 seconds Skilled Intervention: Patient was educated in proper exercise technique and purpose for exercises. Skilled judgment was used in selection of appropriate interventions. Provided written instruction for home exercise program to facilitate proper performance and compliance. Correct performance of therapeutic exercises was facilitated with verbal and visual cuing. Home Exercise Program Assigned: Current Home Program: Access Code: [email or web address] URL: [email or web address] Date: 01/29/2024 Prepared by: ENDY CURRAN Exercises - Supine Posterior Pelvic Tilt - 2 x daily - 7 x weekly - 1-2 sets - 10 reps - Posterior Pelvic Tilt with Adduction Using Pillow in Hooklying - 2 x daily - 7 x weekly - 1-2 sets - 10 reps - Hooklying Clamshell with Resistance - 2 x daily - 7 x weekly - 1-2 sets - 10 reps - Supine Double Knee to Chest - 2 x daily - 7 x weekly - 1 sets - 5 reps - 10 hold Billing * Evaluation Low Complexity: 1 Unit Therapeutic Exercise Treatment Minutes: 15 Skilled Treatment Time Minutes (timed and untimed codes): 63 Total Session Time (minutes): 63 Session Start Time : 941 Session Stop Time : 1044 Endy Curran PT, MBA documented in this encounter [facility] 01-29-2024 Note HNO ID: [id number] Author: ENDY CURRAN PT Service: ? Author Type: Physical Therapist Type: Progress Notes Filed: 01/29/2024 14:32 Note Text: Episode Visit Count: 1 Therapist That Will Accept/Oversee The Plan Of Care: Endy Curran PT, MBA Start of Care Date: 01/29/24 Onset Date: 05/08/23 (Flare up since about October 2023) Plan of Care Certification Date: 01/29/24 Next Certification Due Date: 03/19/24 Patient Identified by Name and Date of : Yes [facility]AB[facility]TS THERAPY PHYSICAL THERAPY EVALUATION PLAN OF CARE: Assessment: Luther Castillo presents with chief complaint of chronic L hip, groin, and L lower back pain that interferes with standing, walking in the house, walking in the community, cleaning, grooming, dressing, bed mobility (Difficulty showering to reach behind the L side, dressing L LE and with car transfers needing UE to lift L LE into the car. Mild difficulty shifting L LE for bed mobility tasks.) . The patient presents with impairments in ADL's, independence in exercise, overall function, patient reported outcome measures, posture, range of motion, strength, and symptom management. PROMIS? (Patient-Reported Outcomes Measurement Information System) scores were reviewed and identified as a rehabilitation concern. Prognosis for therapy is Good due to: current objective clinical presentation, good overall health status, good support system/ coping skills, Prognosis may be limited due to chronic nature ofimpairments . Patient presents with positive R MINI test, decreased lumbar ROM, decreased trunk/abdominal strengths and I suspect L hip pain may be due to lumbar radicular symptoms. The patient will benefit from skilled therapy services to meet the goals established for this plan of care as noted below. Goals for Episode of Care: established 01/29/24 Patient reported outcome of physical function will increase T-score by a minimum 5 points. Patient to be independent in home exercise program for low back ROM and lumbar stabilization and LE strengthening exercises to return patient to prior level of function and reduce L hip pain. Patient will decrease lower back and L LE radicular pain to 0-3/10 at rest and with functional activities to allow patient to improve ambulation, transfers, and standing tolerance for ADLs. Patient will increase active ROM of lumbar spine to minimal to moderate limitation overall to allow pt to improve performance of ADLs. Patient will demonstrate increase in trunk, abdominal and bilateral LE strengths to 4+ to 4+-5/5 during manual muscle testing in order to improve function for home management tasks, light functional tasks, and prior functional tasks. Perform most home management and ADL tasks with decreased report of symptoms/pain in 4-6 weeks. Patient Goals: To decrease lower back and L hip pain Time Frame for Goals and Treatment : 03/19/24 Planned Interventions, Frequency, and Duration: Current Frequency: 2x/week Duration: 6 weeks Total Number of Visits Planned: 12 Planned Treatment Interventions: Therapeutic exercise (22971), Manual therapy (97605), Therapeutic activities (77560), Self-penitentiary management (19244), Patient/Family/Caregiver Education, Body Mechanics Training PLAN FOR NEXT VISIT: Review HEP and progress with further lumbar stabilization exercises with flexion bias. Patient demonstrates good understanding of plan of care and treatment. The above goals and plan of care were discussed and agreed upon by patient/family. SUBJECTIVE: Patient states that he has had constant L hip pain for about 8 months duration with recent flare up since about October 2023. It was initially intermittent dull ache along the L side belt line that kept him from walking for exercise and had difficulty with bednign over to shower or doing overhead tasks. This L hip pain is now constant in nature and is dull and aching. He saw Catherine Peraza APRN, JOI and since that time he has had a terrible, cutting pain in the L groin. He will see Dr. Ocampo, his PCP, next week. He has been taking Ibuprofen and Tylenol, which may help a little during the day. He also had remote history of lower back GIOVANNY. He states that he has prostate CA and was referred to Dr. Vicente Roach. He did have recent L hip x-rays and he was told that his symptoms are more arthritic related. Patient Goals: To decrease lower back and L hip pain Functional Limitations: standing, walking in the house, walking in the community, cleaning, grooming, dressing, bed mobility (Difficulty showering to reach behind the L side, dressing L LE and with car transfers needing UE to lift L LE into the car. Mild difficulty shifting L LE for bed mobility tasks.) Prior Level of Function: Independent with restrictions Independent with the following restrictions: Unable to walk with his , walk to the mailbox, stand to fill water pitcher. Difficulty with kitc (more content not included)... [facility] 01-23-2024 Telephone encounter Note SOCIAL WORK FOLLOW UP NOTE: [facility] CENTER Pt noted on [facility] [place] report. Pt was seen by provider on 01/20. Per chart review, no distress noted. No other needs identified. Deferred RAJ Fang-S [facility] 01-23-2024 Miscellaneous Notes SOCIAL WORK FOLLOW UP NOTE: [facility]ER CENTER Pt noted on [facility] [place] report. Pt was seen by provider on 01/20. Per chart review, no distress noted. No other needs identified. Deferred RAJ Fang-S documented in this encounter [facility] 01-21-2024 Note [facility] 01-21-2024 History of Present illness Narrative Pt here for injection of xgeva given SQ in right arm and aranesp given SQ in left arm Pt tolerated well. For all other information regarding today, see today's OV note with Dr Herring. Lorin Zhang LPN documented in this encounter [facility] 01-21-2024 Note [facility] 01-21-2024 History of Present illness Narrative (Elements copied from my note dated October 22, 2023, have been reviewed and updated where appropriate, and all reflect current assessment and medical decision making from today's encounter, January 21, 2024) HISTORY OF PRESENT ILLNESS: Luther Castillo is a 68 [address] old male Per Dr. Clemente's previous note: H/o refractory anemia who present with an elevation PSA. He saw urology, Dr. Varghese on April 10 and subsequent prostate biopsy on April 19 2021. MRI prostate showed cancer of prostate with capsular invasion some likely metastases to the pelvic bone region. His bone scan subsequently confirmed metastatic disease. Biopsy of prostate confirmed Rasheed 7, prostate cancer. He started androgen deprivation therapy with leuprolidse acetate 45 mg, abiraterone/pred, & denosumab 120 mg monthly on 04/26/2021 for metastatic (M1) prostate cancer. Current treatment: Zytiga and prednisone Leuprolide acetate 45 mg every 6 months & denosumab 120 mg monthly Here for follow up reviewed history Prostate cancer, PSA undetectable On zytiga 2 years Chronic anemia, worse today Bone marrow biopsy in 2020 was normal. CrCl 54 More anemic. Notes no bleeding, no dark stool. We note microcytic indices with previously demonstrated normal iron levels. Hgb electrophoresis negative CLINICAL IMPRESSION: Prostate cancer under good control, today's PSA pending. More anemic CKD grade 3a RECOMMENDATION/PLAN: 1. Anemia, ?renal effect 2. Continue zytiga pred 3. Lupron as scheduled 4. Aranesp, increased dose to 300 mcg Written and verbal health teaching given to patient, patient verbalizes understanding and agrees with treatment plan. PAST MEDICAL HISTORY Diagnosis Date Abdominal pain, left lower quadrant Actinic keratosis Allergic rhinitis, cause unspecified Allergic rhinitis Arthritis Benign neoplasm of rectum and anal canal BPH (benign prostatic hyperplasia) Elevated PSA Dr Mckeon Family history of malignant neoplasm of prostate 02/13/2017 Gastroesophageal reflux disease with esophagitis 10/09/2016 History of squamous cell carcinoma of skin 06/2017 left frontal scalp Iron deficiency anemia, unspecified Prostate cancer (HCC) Dr. 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 Seborrheic keratosis Vasovagal reaction 10/09/2016 PAST SURGICAL HISTORY Procedure Laterality Date COLONOSCOPY 02/27/2022 COLONOSCOPY FLX DX W/COLLJ SPEC WHEN PFRMD 10/2006 Colonoscopy COLONOSCOPY FLX DX W/COLLJ SPEC WHEN PFRMD 03/06/2012 Colonoscopy COLONOSCOPY FLX DX W/COLLJ SPEC WHEN PFRMD 02/10/2017 5 year repeat DIAGNOSTIC ARTHROSCOPY SHOULDER +- SYNOVIAL BX Right 10/11/2016 Right shoulder arthroscopic rotator cuff debridement, biceps tenotomy EGD 02/27/2022 ESOPHAGOGASTRODUODENOSCOPY TRANSORAL DIAGNOSTIC 03/10/2008 EGD ESOPHAGOGASTRODUODENOSCOPY TRANSORAL DIAGNOSTIC 02/26/2016 EGD FRACTURE SURGERY PAST SURGICAL HISTORY OF right wrist surgery PAST SURGICAL HISTORY OF 10/05/2002 right carpal tunnel PAST SURGICAL HISTORY OF 10/19/2002 left carpal tunnel RECONSTRUCTION ROTATOR CUFF AVULSION CHRONIC Right 10/11/2016 Right shoulder subacromial decompression TONSILLECTOMY HX TONSILLECTOMY PRIMARY/SECONDARY <AGE 12 Tonsillectomy FAMILY HISTORY Problem Relation Age of Onset Arthritis Mother Prostate Cancer Father Dx late 70s/80s, metastatic Colon Cancer Sister Dx late 50s No Known Problems Sister Heart Attack Maternal Grandfather Prostate Cancer Paternal Uncle Metastatic Prostate Cancer Paternal cousin Two paternal 1st cousins (brothers to each other), sons of the uncle with cancer Social History Tobacco Use Smoking status: Former Packs/day: 0.25 Years: 2.50 Additional pack years: 0.00 Total pack years: 0.63 Types: Cigarettes Quit date: 07/13/1973 Years since quittin.6 Smokeless tobacco: Never Vaping Use Vaping Use: Never used Substance Use Topics Alcohol use: Not Currently Alcohol/week: 6.0 standard drinks of alcohol Types: 6 Cans of Beer (12oz) per week Comment: occasionally Drug use: No ALLERGIES: ALLERGIES Allergen Reactions Envirornmental [Oth* Intolerance CURRENT OUTPATIENT MEDICATIONS: predniSONE (DELTASONE) 5 mg tablet^Take 1 tablet by mouth two times a day.^Disp: 60 tablet^Rfl: 2 abiraterone 250 mg tablet^TAKE 4 TABLETS (1,000MG) BY MOUTH ONCE DAILY ON AN EMPTY STOMACH 1 HOUR BEFORE OR 2 HOURS AFTER A MEAL^Disp: 120 tablet^Rfl: 5 tamsulosin (FLOMAX) 0.4 mg^TAKE 1 CAPSULE BY MOUTH EVERY DAY^Disp: 90 capsule^Rfl: 5 cimetidine (TAGAMET) 200 mg tablet^Take 200 mg by mouth twice daily.^Disp: ^Rfl: calcium carbonate/vitamin D3 (CALCIUM + D ORAL)^Take 1 tablet by mouth twice daily.^Disp: ^Rfl: leuprolide acetate (ELIGARD SUBCUTANEOUS)^Inject subcutaneously once every 6 months.^Disp: ^Rfl: denosumab (XGEVA SUBCUTANEOUS)^Inject subcutaneously once every month.^Disp: ^Rfl: iv contrast (will be provided with radiology test)^MRI Prostate Inject, intravenously, once for 1 dose. No IV access, insert saline lock prior to the beginning of sedation, infusion, injection of imaging exam. Discontinue saline lock post exam. If Pt. has a central line or IVAD, may access for administration according to line specific nursing protocol. Once exam is complete flush line and de-access according to line specific nursing protocol in the MR contrast administration guidelines link.^Disp: 1 Each^Rfl: 0 REVIEW OF SYSTEMS: GENERAL: No fever, night sweats, weight loss or malaise. All other reviewed and negative other than HPI. PHYSICAL EXAMINATION: VITAL SIGNS: BP 129/79 Pulse 80 Temp 97.8 Wt 160 lb 8 oz (72.8kg) GENERAL APPEARANCE: Well appearing, in no acute distress, alert and oriented x3, well-hydrated, well nourished. I spent a total of 30 minutes on the date of the service which included preparing to see the patient, [id number] patient care, completing clinical documentation, obtaining and/or reviewing separately obtained history, counseling and educating the patient/family/caregiver, ordering medications, tests, or procedures, independently interpreting results (not separately reported), and communicating results to the patient/family/caregiver. Electronically Signed: Dereje Herring MD January 21, 2024 documented in this encounter [facility] 12-30-2023 Telephone encounter Note Phoned patient and went over results, notes from Catherine Peraza BLISTER PACKAGING MACHINE OPERATOR with understanding. [facility] 12-30-2023 Miscellaneous Notes Phoned patient and went over results, notes from Catherine Peraza BLISTER PACKAGING MACHINE OPERATOR with understanding. ----- Message from Catherine Peraza APRN.CNP sent at 12/30/2023 2:09 PM EDT ----- Xray shows mild to moderate left hip arthritis. Would go ahead and do the PT and if not improving can have him see ortho. Catherine Peraza APRN.CNP documented in this encounter [facility] 12-30-2023 Telephone encounter Note ----- Message from Catherine Peraza APRN.CNP sent at 12/30/2023 2:09 PM EDT ----- Xray shows mild to moderate left hip arthritis. Would go ahead and do the PT and if not improving can have him see ortho. Catherine Peraza APRN.DIRECTOR OF HEALTH CARE MARKETING [facility] 12-24-2023 History of Present illness Narrative Radiology Service Progress Note PATIENT NAME: Luther Castillo DATE OF SERVICE: December 24, 2023 TIME: 11:58 AM PATIENT IDENTITY VERIFICATION COMPLETED USING TWO (2) IDENTIFIERS: Name and Date of confirmed by patient verbally. FALL SCREENING: Has the patient had 2 falls in the last year or 1 fall with injury or currently using an Ambulatory Assistive Device (Walker, Cane, Wheelchair, Crutches, etc.)? No PATIENT GENDER DATA: Male PATIENT RELEVANT IMPLANT DATA REVIEWED: Not Applicable PATIENT PRESENTS WITH AN IMPLANTABLE OR ATTACHED ROLL ICER MACHINE: No RADIOLOGY DEPARTMENT: General X-ray: Exam(s) Completed: Pelvis X-Ray: Pelvis with Hip Left PERIPHERAL IV DATA: Not applicable SIGNED BY: RT Teresita(R) December 24, 2023 11:58 AM documented in this encounter [facility] 12-24-2023 Note [facility] 12-24-2023 History of Present illness Narrative 12/24/2023 Patient presents with: Pain: Left hip/lower back pain for the last 8 months, this flare up is lasting 7 weeks. Noticed it initially started when oncology started a new med. SUBJECTIVE: This is a 68 year old that is here today for Above Complaints. ONSET: 8 months LOCATION: left back- top of hip DURATION:constant CHARACTERISTICS: tingling left groin AGGRAVATING FEATURES: reaching up hurts in back . Worse after activity ALLEVIATING FEATURES: has tried tylenol, Advil and heat which don't seem to help RADIATION: around groin Denies hx of hip or back injury/surgery, saddle anaesthesia, extremity weakness, urinary/bowel incontinence or inability Hx of back pain had a cortsione injection in the past Did speak with oncology about this as he thought possible related to medication infusion for prostate cancer. CT lumbar spine, ABD/PEL ordered with possible mild acute uncomplicated appendicitis otherwise not acute findings. Was seen in ER for possible appendicitis but was told to follow-up as outpatient. No current abdominal pain or fevers PAST MEDICAL HISTORY Diagnosis Date Abdominal pain, left lower quadrant Actinic keratosis Allergic rhinitis, cause unspecified Allergic rhinitis Arthritis Benign neoplasm of rectum and anal canal BPH (benign prostatic hyperplasia) Elevated PSA Dr Mckeon Family history of malignant neoplasm of prostate 02/13/2017 Gastroesophageal reflux disease with esophagitis 10/09/2016 History of squamous cell carcinoma of skin 06/2017 left frontal scalp Iron deficiency anemia, unspecified Prostate cancer (HCC) Dr. 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 Take on mornings of injections tamsulosin (FLOMAX) 0.4 mg Take 1 capsule by mouth once daily. predniSONE (DELTASONE) 5 mg tablet take 1 tablet by mouth twice daily darbepoetin dagmar in albumn john (ARANESP INJECTION) by INJECTION(UNSPECIFIED PARENTERAL ROUTES) route every 4 weeks. PRN abiraterone 250 mg tablet TAKE 4 TABLETS (1,000MG) BY MOUTH ONCE DAILY ON AN EMPTY STOMACH 1 HOUR BEFORE OR 2 HOURS AFTER A MEAL atorvastatin (LIPITOR) 20 mg tablet Take 1 tablet by mouth daily at bedtime. For cholesterol. cimetidine (TAGAMET) 200 mg tablet Take 200 mg by mouth twice daily. calcium carbonate/vitamin D3 (CALCIUM + D ORAL) Take 1 tablet by mouth twice daily. leuprolide acetate (ELIGARD SUBCUTANEOUS) Inject subcutaneously once every 6 months. denosumab (XGEVA SUBCUTANEOUS) Inject subcutaneously once every month. iv contrast (will be provided with radiology test) MRI Prostate Inject, intravenously, once for 1 dose. No IV access, insert saline lock prior to the beginning of sedation, infusion, injection of imaging exam. Discontinue saline lock post exam. If Pt. has a central line or IVAD, may access for administration according to line specific nursing protocol. Once exam is complete flush line and de-access according to line specific nursing protocol in the MR contrast administration guidelines link. No current facility-administered medications for this visit. Medications and allergies reviewed by this provider. SOCIAL HISTORY Social History Tobacco Use Smoking status: Former Current packs/day: 0.00 Average packs/day: 0.3 packs/day for 2.5 years (0.6 ttl pk-yrs) Types: Cigarettes Start date: 01/13/1971 Quit date: 07/13/1973 Years since quittin.4 Smokeless tobacco: Never Vaping Use Vaping status: Never Used Substance Use Topics Alcohol use: Not Currently Alcohol/week: 6.0 standard drinks of alcohol Types: 6 Cans of Beer (12oz) per week Comment: occasionally Drug use: No REVIEW OF SYSTEMS All other reviewed and negative other than HPI. OBJECTIVE: BP 112/62 Pulse 102 Resp 18 Wt 68.9 kg (151 lb 14.4 oz) SpO2 98% BMI 23.79 kg/m . Vital signs reviewed by this provider. APPEARANCE Well appearing, alert, in no acute distress, well-hydrated, well nourished. BACK: Normal exam, no pain to palpation, good flexion and extension, negative SLR test EXTREMITIES Extremities normal, No deformities, No skin discoloration, and No edema NEURO Awake, alert and oriented x 3, Reflexes symmetrical, Normal gait, No involuntary motions., and negative findings: gait, including heel, toe, and tandem walking normal, muscle tone normal, muscle strength normal, sensation to light touch and pinprick normal, reflexes normal and symmetric, plantar response downgoing bilaterally SKIN Skin color, texture, turgor normal, no suspicious rashes or lesions to exposed skin Hips: no obvious deformity or TTP. FROM with difficulty. Mild discomfort with left internal rotation. No clunking Depression Screening Never done Anxiety Screening Never done Advance Directive Discussion due on 04/07/2023 Covid-19 Vaccine(2022- season) due on 12/07/2023 Influenza Vaccine(1) due on 12/07/2023 Diabetes Screening due on 12/16/2026 Colorectal Cancer Screening due on 02/27/2027 Lipid Screening due on 06/10/2028 DTaP,Tdap,Td Vaccine(4 - Td or Tdap) due on 09/23/2032 Abdominal Aortic Aneurysm Screening Completed RSV Vaccine Completed Hepatitis C Screening Completed Shingrix Vaccine Completed Pneumococcal Vaccine: 65+ Completed HPV Vaccine Aged Out ASSESSMENT/PLAN: 1. Left hip pain - ICD9: 719.45, ICD10: M25.552 - possible arthritis, possibly referred from back - no red flag symptoms or exam findings - red flag symptoms discussed, verbalizes understanding - may try ice - XR HIP GENERAL 3V PELV/AP/LAT LEFT - CONSULT TO PHYSICAL THERAPY - follow-up if symptoms fail to improve to ER with red flag symptoms Catherine Peraza APRN.DIRECTOR OF HEALTH CARE MARKETING Prescription instructions reviewed with patient as applicable. Patient advised if symptoms do not improve or if symptoms worsen sooner, to contact their primary care physician. Potential red flag symptoms discussed with the patient. Reviewed appropriate action plan to take if red flag symptoms occur. Patient agreeable to treatment plan. Medical Decision Making: Problems: Moderate: New problem with uncertain prognosis Data: Unique test(s) ordered: 1 Risk: Moderate: Moderate risk from testing/treatment Medical Decision Making Level: 4 - Moderate documented in this encounter [facility] 12-24-2023 Note [facility] 12-17-2023 Note [facility] 12-17-2023 History of Present illness Narrative Patient here for an injection of Xgeva SQ in left arm and Aranesp SQ in right arm. Pt tolerated well. Lorin Zhang LPN documented in this encounter [facility] 12-12-2023 Miscellaneous Notes Call to patient, aware that Dr. Herring reviewed CT and Rx for Decadron sent to pharmacy. Dosing reviewed. Patient states understanding. Denies other concerns. Krista Dorsey RN Dr. Herring reviewed scan. No concerning findings. Rx for Decadron po to be taken the am of injections. Krista Dorsey RN Patient calls in and states that he went to [facility] ED. He states that after blood work, urinalysis, exam from physician, it was determined that the pain is not appendicitis. He was sent home. He states the pain is a little better this week but he is apprehensive about getting any more shots next week. He would like to know what Dr. Herring thinks about scans. Krista Dorsey RN Called patient to review CT scans: mild acute appendicitis. Recommending ED for evaluation, abx, surgery consult. Pt acknowledged. Planning to go to [facility]. He reports pain is stable from last week. Not worsening. No fevers. No N/V. CT stable from cancer perspective. Tee Ellis APRN.DIRECTOR OF HEALTH CARE MARKETING documented in this encounter [facility] 12-12-2023 Telephone encounter Note Call to patient, aware that Dr. Herring reviewed CT and Rx for Decadron sent to pharmacy. Dosing reviewed. Patient states understanding. Denies other concerns. Krista Dorsey RN [facility] Work Phone: 12-12-[address] Herring reviewed scan. No concerning findings. Rx for Decadron po to be taken the am of injections. Krista Dorsey RN [facility] 12-11-2023 Telephone encounter Note Patient calls in and states that he went to [facility] ED. He states that after blood work, urinalysis, exam from physician, it was determined that the pain is not appendicitis. He was sent home. He states the pain is a little better this week but he is apprehensive about getting any more shots next week. He would like to know what Dr. Herring thinks about scans. Krista Dorsey, RN [facility] 12-11-2023 Telephone encounter Note Called patient to review CT scans: mild acute appendicitis. Recommending ED for evaluation, abx, surgery consult. Pt acknowledged. Planning to go to [facility]. He reports pain is stable from last week. Not worsening. No fevers. No N/V. CT stable from cancer perspective. Tee Ellis APRN.DIRECTOR OF HEALTH CARE MARKETING [facility] Work Phone: 12-10-2023 History of Present illness Narrative Radiology Service Progress Note DATE OF SERVICE: December 10, 2023 TIME: 4:05 PM PATIENT IDENTITY VERIFICATION COMPLETED USING TWO (2) STANDARD IDENTIFIERS: Name and Date of confirmed by patient verbally. FALL SCREENING: Has the patient had 2 falls in the last year or 1 fall with injury or currently using an Ambulatory Assistive Device (Walker, Cane, Wheelchair, Crutches, etc.)? No PATIENT GENDER DATA: Male PATIENT RELEVANT IMPLANT DATA REVIEWED: Yes PATIENT PRESENTS WITH AN IMPLANTABLE OR ATTACHED ROLL ICER MACHINE: No ALLERGIES: Reviewed and unchanged CONTRAST ALLERGY: NO. EXAM: CT -CONTRAST INDUCED NEPHROPATHY RISK FACTORS: Patient age > 60 years CREATININE: Creatinine Date Value Ref Range Status 11/19/2023 1.03 0.73 - 1.22 mg/dL Final 10/22/2023 0.97 0.73 - 1.22 mg/dL Final 09/24/2023 1.00 0.73 - 1.22 mg/dL Final Estimated Glomerular Filtration Rate Date Value Ref Range Status 11/19/2023 78 >=60 mL/min/1.73m Final Comment: Estimated Glomerular Filtration Rate (eGFR) is calculated using the 2020 CKD-EPI creatinine equation. This equation utilizes serum creatinine, sex, and age as parameters. The creatinine assay has traceable calibration to isotope dilution-mass spectrometry. Refer to KDIGO guidelines for clinical interpretation. In patients with unstable renal function, e.g. those with acute kidney injury, the eGFR may not accurately reflect actual GFR. eGFR- Date Value Ref Range Status 05/28/2021 >60 Final P.O.C.T. RESULTS: POC done: Yes, See Lab Tab December 10, 2023 TREATMENT: N/A PERIPHERAL IV DATA: Ambulatory: A peripheral IV was started in the Left antecubital site with a Angio cath: 22 gauge. RADIOLOGY DEPARTMENT: CT; Exam(s) Completed: Abdomen/Pelvis and Spine SIGNATURE: RT Maritza(R) PATIENT NAME: Luther Castillo DATE: December 10, 2023 TIME: 4:05 PM documented in this encounter [facility] 12-10-2023 Note [facility] 12-05-2023 Telephone encounter Note Spoke with patient/. Aware of instructions from Tee to go the ED if any new or increase in symptoms. Both state understanding. Krista Dorsey RN [facility] Work Phone: 12-05-2023 Miscellaneous Notes Spoke with patient/. Aware of instructions from Tee to go the ED if any new or increase in symptoms. Both state understanding. Krista Dorsey RN Spoke with patient and scheduled CT. Transferred call to Rubber Trimmer for more instructions. Yaritza Carvajal Prostate ca with known bone mets. Would not expect that reaction from either injection this far out. Ordered STAT CT a/p spine to assess. If pain is getting worse or causing numbness/tingling in legs should go to ED. Tee Ellis APRN.DIRECTOR OF HEALTH CARE MARKETING Care Coordination Triage Note [facility] Situation: Patient reports Other Pain Background: Disease, current pertinent medications/treatments Prostate, on Zytiga, Prednison, Lupron Assessment: Call to patient, states he usually gets headache, all over achiness after he gets Zytiga and Aranesp injections that last 2-3 days and resolves. He also has been experiencing deep achiness in his left lower back (belt line) that was also lasting 4-5days but this month, it has now lasted about 2 weeks. States he has tried a heating pad, using Ibuprofen but it is not getting better. When he is sitting down/resting, he does not feel the pain but when he is up standing or moving around, it comes back. Rates 8/10 and keeps him from doing his daily activities. Denies fever/chills. Appetite good. Denies any urinary symptoms. Last BM yesterday. Recommendations: Per RNCC, patient directed to: Manage at home. Instructions provided. Will give update to Tee Ellis CNP and call back with further instructions. Natalya Dorsey RN December 05, 2023 1:36 PM documented in this encounter [facility] 12-05-2023 Telephone encounter Note Spoke with patient and scheduled CT. Transferred call to Rubber Trimmer for more instructions. Yaritza Carvajal [facility] 12-05-2023 Telephone encounter Note Prostate ca with known bone mets. Would not expect that reaction from either injection this far out. Ordered STAT CT a/p spine to assess. If pain is getting worse or causing numbness/tingling in legs should go to ED. Tee Ellis APRN.DIRECTOR OF HEALTH CARE MARKETING [facility] 12-05-2023 Telephone encounter Note Care Coordination Triage Note [facility] Situation: Patient reports Other Pain Background: Disease, current pertinent medications/treatments Prostate, on Zytiga, Prednison, Lupron Assessment: Call to patient, states he usually gets headache, all over achiness after he gets Zytiga and Aranesp injections that last 2-3 days and resolves. He also has been experiencing deep achiness in his left lower back (belt line) that was also lasting 4-5days but this month, it has now lasted about 2 weeks. States he has tried a heating pad, using Ibuprofen but it is not getting better. When he is sitting down/resting, he does not feel the pain but when he is up standing or moving around, it comes back. Rates 8/10 and keeps him from doing his daily activities. Denies fever/chills. Appetite good. Denies any urinary symptoms. Last BM yesterday. Recommendations: Per RNCC, patient directed to: Manage at home. Instructions provided. Will give update to Tee Ellis CNP and call back with further instructions. Natalya Dorsey RN December 05, 2023 1:36 PM [facility] 12-02-2023 History of Present illness Narrative CHIEF COMPLAINT: Patient presents with: Skin Check Last Dermatology Visit: [facility] - 11/27/2022 RELEVANT DERMATOLOGY HISTORY: Personal Hx of skin cancer: ~ basal cell CA - 11/07/20, Mid Chest - ED&C ~ squamous cell CA - 3/18, Left Frontal Scalp - Mohs Personal Hx of atypical moles: no Family Hx of malignant melanoma: no Antibiotics before dental or other procedures: no Artificial joints: no Pacemaker: no Anticoagulants: no DERMATOLOGY PROGRESS NOTE HISTORY: Luther Castillo is a 68 year old male who presents with CC/HPI: Chief Complaint Lesion Location Full body Duration years Timing constant Severity mild Quality As above Modifying Factors: Scalp x 6 month dry , flaky Does not remember if this was treated before PAST MEDICAL HISTORY: PAST MEDICAL HISTORY No date: Abdominal pain, left lower quadrant No date: Actinic keratosis No date: Allergic rhinitis, cause unspecified Comment: Allergic rhinitis No date: Arthritis No date: Benign neoplasm of rectum and anal canal No date: BPH (benign prostatic hyperplasia) No date: Elevated PSA Comment: Dr Mckeon 02/13/2017: Family history of malignant neoplasm of prostate 10/09/2016: Gastroesophageal reflux disease with esophagitis 06/2017: History of squamous cell carcinoma of skin Comment: left frontal scalp No date: Iron deficiency anemia, unspecified No date: Prostate cancer (HCC) Comment: Dr. 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) No date: Seborrheic keratosis 10/09/2016: Vasovagal reaction ACTIVE PROBLEM LIST Allergic Rhinitis, Cause Unspecified ACTINIC KERATOSES (Premalignant AK's) Microcytic Anemia Acute Gastritis Without Mention of Hemorrhage Benign Neoplasm of Rectum and Anal Canal Internal Hemorrhoids Without Mention of Complication Actinic Skin Damage Solar Lentigines Other Seborrheic Dermatitis Spinal Stenosis of Lumbar Region Lumbar Disc Herniation With Radiculopathy Lumbosacral Neuritis Lumbar Degenerative Disc Disease Osteoarthritis of Spine With Radiculopathy, Lumbar Region Biceps Tendonitis On Right Impingement Syndrome of Right Shoulder Biceps Tendinitis of Right Shoulder Chronic Pain in Right Shoulder Vasovagal Reaction Gastroesophageal Reflux Disease With Esophagitis Shoulder Impingement Syndrome, Right Elevated Prostate Specific Antigen (Psa) Hypertrophy of Prostate With Urinary Obstruction Family History of Malignant Neoplasm of Prostate 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) Malignant Neoplasm Metastatic to Bone (Hcc) Prostate Cancer (Hcc) Mixed Hyperlipidemia PAST SURGICAL HISTORY 02/27/2022: COLONOSCOPY 10/2006: COLONOSCOPY FLX DX W/COLLJ SPEC WHEN PFRMD Comment: Colonoscopy 03/06/2012: COLONOSCOPY FLX DX W/COLLJ SPEC WHEN PFRMD Comment: Colonoscopy 02/10/2017: COLONOSCOPY FLX DX W/COLLJ SPEC WHEN PFRMD Comment: 5 year repeat 10/11/2016: DIAGNOSTIC ARTHROSCOPY SHOULDER +- SYNOVIAL BX; Right Comment: Right shoulder arthroscopic rotator cuff debridement, biceps tenotomy 02/27/2022: EGD 03/10/2008: ESOPHAGOGASTRODUODENOSCOPY TRANSORAL DIAGNOSTIC Comment: EGD 02/26/2016: ESOPHAGOGASTRODUODENOSCOPY TRANSORAL DIAGNOSTIC Comment: EGD No date: FRACTURE SURGERY No date: PAST SURGICAL HISTORY OF Comment: right wrist surgery 10/05/2002: PAST SURGICAL HISTORY OF Comment: right carpal tunnel 10/19/2002: PAST SURGICAL HISTORY OF Comment: left carpal tunnel 10/11/2016: RECONSTRUCTION ROTATOR CUFF AVULSION CHRONIC; Right Comment: Right shoulder subacromial decompression No date: TONSILLECTOMY HX No date: TONSILLECTOMY PRIMARY/SECONDARY <AGE 12 Comment: Tonsillectomy MEDICATIONS: Current Outpatient Medications Medication Sig tamsulosin (FLOMAX) 0.4 mg Take 1 capsule by mouth once daily. predniSONE (DELTASONE) 5 mg tablet take 1 tablet by mouth twice daily darbepoetin dagmar in albumn john (ARANESP INJECTION) by INJECTION(UNSPECIFIED PARENTERAL ROUTES) route every 4 weeks. PRN abiraterone 250 mg tablet TAKE 4 TABLETS (1,000MG) BY MOUTH ONCE DAILY ON AN EMPTY STOMACH 1 HOUR BEFORE OR 2 HOURS AFTER A MEAL atorvastatin (LIPITOR) 20 mg tablet Take 1 tablet by mouth daily at bedtime. For cholesterol. cimetidine (TAGAMET) 200 mg tablet Take 200 mg by mouth twice daily. calcium carbonate/vitamin D3 (CALCIUM + D ORAL) Take 1 tablet by mouth twice daily. leuprolide acetate (ELIGARD SUBCUTANEOUS) Inject subcutaneously once every 6 months. denosumab (XGEVA SUBCUTANEOUS) Inject subcutaneously once every month. iv contrast (will be provided with radiology test) MRI Prostate Inject, intravenously, once for 1 dose. No IV access, insert saline lock prior to the beginning of sedation, infusion, injection of imaging exam. Discontinue saline lock post exam. If Pt. has a central line or IVAD, may access for administration according to line specific nursing protocol. Once exam is complete flush line and de-access according to line specific nursing protocol in the MR contrast administration guidelines link. (Patient not taking: Reported on 10/16/2023) No current facility-administered medications for this visit. ALLERGIES: reviewed [employer]en OCCUPATION: retired REVIEW OF SYSTEMS:No fever, chills, night sweats or changes in weight. No dyspnea, chest pain, abdominal pain, dysuria. All other review of systems is negative FAMILY MEDICAL HISTORY: FAMILY HISTORY Problem Relation Age of Onset Arthritis Mother Prostate Cancer Father Dx late 70s/80s, metastatic Colon Cancer Sister Dx late 50s No Known Problems Sister Heart Attack Maternal Grandfather Prostate Cancer Paternal Uncle Metastatic Prostate Cancer Paternal cousin Two paternal 1st cousins (brothers to each other), sons of the uncle with cancer SOCIAL HISTORY: Social History Tobacco Use Smoking status: Former Current packs/day: 0.00 Average packs/day: 0.3 packs/day for 2.5 years (0.6 ttl pk-yrs) Types: Cigarettes Start date: 01/13/1971 Quit date: 07/13/1973 Years since quittin.4 Smokeless tobacco: Never Vaping Use Vaping status: Never Used Substance Use Topics Alcohol use: Not Currently Alcohol/week: 6.0 standard drinks of alcohol Types: 6 Cans of Beer (12oz) per week Comment: occasionally Drug use: No PHYSICAL EXAMINATION: GENERAL: Patient is a well appearing, well nourished, and pleasant, male alert and oriented, NAD. SKIN: A full skin exam was performed including the scalp, face, lips, neck, chest, abdomen, back, buttocks, arms and legs. erythematous gritty papule(s) , Left jainism, right crown scalp, Upper dorsal nose, right jainism, Left dorsal hand, left lateral upper arm Brown waxy warty stuck on papules on trunk and extremities Cabrera red vascular papules on trunk Light brown macules in sun distribution on upper body Multiple symmetric pigmented macules with benign features on trunk extremities No recurrence on previous skin cancer sites Xerosis on entire skin including upper lower body no excoriations ASSESSMENT/PLAN: 1. Xerosis cutis - ICD9: 706.8, ICD10: L85.3 (primary diagnosis) - dry skin care instructions given 2. Actinic keratosis - ICD9: 702.0, ICD10: L57.0 -Diagnosis treatment discussed liquid nitrogen as below 3. Seborrheic keratosis - ICD9: 702.19, ICD10: L82.1 -Observe 4. Lentigines - ICD9: 709.09, ICD10: L81.4 -Sun protection 5. Cabrera angioma - ICD9: 228.01, ICD10: D18.01 - observe 6. Multiple benign nevi - ICD9: 216.9, ICD10: D22.9 -Sun protection and monitoring 7. Personal history of skin cancer - ICD9: V10.83, ICD10: Z85.828 - Mole/melanoma/dysplastic nevus/skin cancer education given - Recommend sun protection with broad spectrum UVA UVB coverage, spf 30+ every day, reapply every 2-3 hours, use higher SPF 50+ for extended sun activities - Monitoring Richie Dejesus MD Cryosurgery of non-malignant lesion(s) HPI: Patient is here for cryosurgery Patient is alert oriented 3 not in apparent distress Luther Castillo Medical Record: [id number] Date: 12/02/2023 Procedure: Cryosurgery The risks, benefits and anticipated outcomes of the procedure, the risks and benefits of the alternatives to the procedure and the roles and tasks of the personnel to be involved were discussed with the patient and the patient consents to the procedure and agrees to proceed. I verify that I personally obtained Luther Castillo's consent. Richie Dejesus MD Dept of DERMATOLOGY Cryosurgery performed with Liquid Nitrogen via via cryostat spray gun to Actinic Keratosis. 8 lesion(s) treated Left jainism, right crown scalp, Upper dorsal nose, right jainism, Left dorsal hand, left lateral upper arm Patient tolerated treatment well. Wound care instructions provided, pt verbalizes understanding. Richie Dejesus MD The documentation for this note was partially completed by Narda Gay MA acting as scribe for Richie Dejesus MD. December 02, 2023 7:06 AM. I agree with the Chief Complaint, ROS, and Past Histories independently gathered by the clinical production support engineer and the remaining scribed note accurately describes my personal service to the patient. VEE Ghosh MD Return to clinic 4 mo ak recheck documented in this encounter [facility] 12-02-2023 Note [facility] 12-02-2023 Instructions Nancy John LPN - 12/02/2023 9:29 AM EDT Patient instructions: Avoid sun exposure Recommend protection with broad band UVA/UVB sunscreen spf 30+ daily Recommend UV protective clothing/hats Oral photoprotective antioxidants discussed if applicable ([employer]) Avoid tanning and tanning bed use Recommend UV protective sunglasses Use sunscreen on lips and ears Follow up as directed Patient instructions for eczema/psoriasis care: Avoid rubbing/scrubbing/exfoliation of the skin. Avoid washcloths/buff puffs/loofa. Avoid hot, long showers/baths. Use a gentle mild soap. Use free and clear detergent. Use a heavy/thick moisturizing cream, or ointment on skin daily Avoid lotions. Avoid perfumed products. AFTERCARE CRYOTHERAPY The skin s response to cryosurgery (freezing) can be mild to more severe, depending on the depth of the freeze and location of the area treated. You may have minimal redness and swelling with little discomfort or significant discoloration and blistering with considerable discomfort. A burning sensation in the skin may last from several minutes to several hours after the procedure. Follow these instructions when caring for an area treated by cryosurgery. MINOR RESPONSE 1. Keep the area clean and dry for 24 hours. After 24 hours, the area may be washed gently with soap and water. 2. The area may sting or burn for a short time after treatment. 3. The treated area will be red in color at first then turn brown and flaky as it heals and the upper layer of skin sloughs off. 4. Gently cleanse the area with Q-tips dipped in plain warm water. Pat dry and apply a thin film of vaseline. Do this at least once a day to prevent infection. MAJOR REPSONSE 1. Follow instructions as stated above for minor response. 2. The area may sting and burn for several hours after treatment. 3. To relieve throbbing and pain, elevate the treatment area. 4. Tylenol (acetaminophen) may be taken every 3 to 4 hours for discomfort. 5. A blister will form in the area of freezing. It may be filled with clear fluid or blood. This response is not unusual. 6. Do not break the blister unless it becomes uncomfortable. You may puncture the blister with a sterile needle or pin to remove the fluid. Leave the skin intact. 7. Cleanse twice a day with plain warm water and apply Vaseline to prevent infection and a thick scab from forming. 8. All treated areas usually heal with 3 to 4 weeks. documented in this encounter [facility] 11-19-2023 Note [facility] 11-19-2023 History of Present illness Narrative Pt here for injection of Xgeva given SQ in right arm and Aranesp given SQ in left arm. Pt tolerated well. Lorin Zhang LPN documented in this encounter [facility] 11-17-2023 Telephone encounter Note From: Luther Castillo To: Office of Sp Mckeon DO Sent: 11/15/2023 9:44 AM EDT Subject: Medication Renewal Request Refills have been requested for the following medications: tamsulosin (FLOMAX) 0.4 mg [Sp Mckeon DO] Preferred pharmacy: [facility] #[id number] - [place] [address] - [address] [phone] [facility] [address] [id number] Delivery method: P ickup [facility] 11-17-2023 Miscellaneous Notes From: Luther Castillo To: Office of Sp Mckeon DO Sent: 11/15/2023 9:44 AM EDT Subject: Medication Renewal Request Refills have been requested for the following medications: tamsulosin (FLOMAX) 0.4 mg [Sp Mckeon DO] Preferred pharmacy: [id number] [place] [address] - [address] [phone] [facility] [address] [address] Delivery method: P ickup documented in this encounter [facility] 11-12-2023 History of Present illness Narrative RADIOLOGY SERVICE PROGRESS NOTE SERVICE DATE: 11/12/2023 SERVICE TIME: 8:59 AM PATIENT IDENTITY VERIFICATION COMPLETED USING TWO (2) STANDARD IDENTIFIERS: Name and Date of confirmed by patient verbally and Name and Date of confirmed by identification band FALL SCREENING: Has the patient had 2 falls in the last year or 1 fall with injury or currently using an Ambulatory Assistive Device (Walker, Cane, Wheelchair, Crutches, etc.)? No PATIENT GENDER DATA: .male ALLERGIES: Reviewed and unchanged MEDICATIONS REVIEWED: Not applicable PATIENT RELEVANT IMPLANT DATA REVIEWED: Not Applicable PATIENT PRESENTS WITH AN IMPLANTABLE OR ATTACHED ROLL ICER MACHINE: No CREATININE: Creatinine Date Value Ref Range Status 10/22/2023 0.97 0.73 - 1.22 mg/dL Final 09/24/2023 1.00 0.73 - 1.22 mg/dL Final 08/27/2023 1.06 0.73 - 1.22 mg/dL Final Estimated Glomerular Filtration Rate Date Value Ref Range Status 10/22/2023 84 >=60 mL/min/1.73m Final Comment: Estimated Glomerular Filtration Rate (eGFR) is calculated using the 2020 CKD-EPI creatinine equation. This equation utilizes serum creatinine, sex, and age as parameters. The creatinine assay has traceable calibration to isotope dilution-mass spectrometry. Refer to KDIGO guidelines for clinical interpretation. In patients with unstable renal function, e.g. those with acute kidney injury, the eGFR may not accurately reflect actual GFR. eGFR- Date Value Ref Range Status 05/28/2021 >60 Final P.O.C.T. RESULTS: N/A November 12, [address] PERFORMED: No IV SITE: Ambulatory: A peripheral IV was started in the Right antecubital site with a Angio cath: 22 gauge. POST EXAM PIV STATUS: Discontinued PROCEDURE TYPE: NM Stress: 13 mCi [id number] was administered IV for Rest Imaging at 8:35 by . 35 mCi Ox70x-Meaqofx was administered IV for Stress Imaging at 9:42 by mm. PATIENT DISCHARGED TO: Ambulatory patient, left NM department area. A Diagnostic radioactive procedure has taken place, with no further precautions necessary other than routine body substance precautions. More information regarding radiation safety can be found using this link: [email or web address] SIGNATURE: JONY Farias PATIENT NAME: Luther Castillo DATE: November 12, 2023 TIME: 8:59 AM PAGER/CONTACT #: documented in this encounter [facility] 11-12-2023 Note HNO ID: [id number] Author: SHERRI CAMPBELL CNMT Service: Radiology Author Type: Technologist Type: Progress Notes Filed: 11/12/2023 09:42 Note Text: RADIOLOGY SERVICE PROGRESS NOTE SERVICE DATE: 11/12/2023 SERVICE TIME: 8:59 AM PATIENT IDENTITY VERIFICATION COMPLETED USING TWO (2) STANDARD IDENTIFIERS: Name and Date of confirmed by patient verbally and Name and Date of confirmed by identification band FALL SCREENING: Has the patient had 2 falls in the last year or 1 fall with injury or currently using an Ambulatory Assistive Device (Walker, Cane, Wheelchair, Crutches, etc.)? No PATIENT GENDER DATA: .male ALLERGIES: Reviewed and unchanged MEDICATIONS REVIEWED: Not applicable PATIENT RELEVANT IMPLANT DATA REVIEWED: Not Applicable PATIENT PRESENTS WITH AN IMPLANTABLE OR ATTACHED ROLL ICER MACHINE: No CREATININE: Creatinine Date Value Ref Range Status 10/22/2023 0.97 0.73 - 1.22 mg/dL Final 09/24/2023 1.00 0.73 - 1.22 mg/dL Final 08/27/2023 1.06 0.73 - 1.22 mg/dL Final Estimated Glomerular Filtration Rate Date Value Ref Range Status 10/22/2023 84 >=60 mL/min/1.73m? Final Comment: Estimated Glomerular Filtration Rate (eGFR) is calculated using the 2020 CKD-EPI creatinine equation. This equation utilizes serum creatinine, sex, and age as parameters. The creatinine assay has traceable calibration to isotope dilution-mass spectrometry. Refer to KDIGO guidelines for clinical interpretation. In patients with unstable renal function, e.g. those with acute kidney injury, the eGFR may not accurately reflect actual GFR. eGFR- Date Value Ref Range Status 05/28/2021 >60 Final P.O.C.T. RESULTS: N/A November 12, [address] PERFORMED: No IV SITE: Ambulatory: A peripheral IV was started in the Right antecubital site with a Angio cath: 22 gauge. POST EXAM PIV STATUS: Discontinued PROCEDURE TYPE: NM Stress: 13 mCi [id number] was administered IV for Rest Imaging at 8:35 by davi. 35 mCi [id number] was administered IV for Stress Imaging at 9:42 by mm. PATIENT DISCHARGED TO: Ambulatory patient, left PR department area. A Diagnostic radioactive procedure has taken place, with no further precautions necessary other than routine body substance precautions. More information regarding radiation safety can be found using this link: [email or web address] [email or web address]%[email or web address] [email or web address] SIGNATURE: JONY Farias PATIENT NAME: Luther Castillo DATE: November 12, 2023 TIME: 8:59 AM PAGER/CONTACT #: [facility] 11-11-2023 Telephone encounter Note Left message regarding reminder and instructions for stress test tomorrow. This included where to check in, length of test and no caffeine for 12 hours prior to test, [facility] 11-11-2023 Miscellaneous Notes Left message regarding reminder and instructions for stress test tomorrow. This included where to check in, length of test and no caffeine for 12 hours prior to test, documented in this encounter [facility] 11-11-2023 Telephone encounter Note Prescription Refill Information The patient has been identified by name and date of : Yes Caregiver verified no other encounters exist for this prescription request: Yes Caregiver confirmed with patient/requestor that no other refills are due, in the near future, with this provider at this time: Yes The last office visit in the department: 10/22/2023 Does the patient have a future office visit with this provider/department: Yes Requested Prescriptions Pending Prescriptions Disp Refills predniSONE (DELTASONE) 5 mg tablet [Pharmacy Med Name: PREDNISONE 5MG TABLETS] 60 tablet 2 Sig: take 1 tablet by mouth twice daily Abigail Ferrer LPN November 11, 2023 7:59 AM [facility] 11-11-2023 Miscellaneous Notes Prescription Refill Information The patient has been identified by name and date of : Yes Caregiver verified no other encounters exist for this prescription request: Yes Caregiver confirmed with patient/requestor that no other refills are due, in the near future, with this provider at this time: Yes The last office visit in the department: 10/22/2023 Does the patient have a future office visit with this provider/department: Yes Requested Prescriptions Pending Prescriptions Disp Refills predniSONE (DELTASONE) 5 mg tablet [Pharmacy Med Name: PREDNISONE 5MG TABLETS] 60 tablet 2 Sig: take 1 tablet by mouth twice daily Abigail Ferrer LPN November 11, 2023 7:59 AM documented in this encounter [facility] 10-22-2023 Nurse Note Pt here for injection of Xgeva and Aranesp. Given SQ in Left and Right arm respectivly. Pt tolerated well. For all other information regarding today, see today's OV note with Dr Herring. Lorin Zhang LPN [facility] 10-22-2023 Nurse Note Pt here for injection of Xgeva and Aranesp. Given SQ in Left and Right arm respectivly. Pt tolerated well. For all other information regarding today, see today's OV note with Dr Herring. Lorin Zhang LPN documented in this encounter [facility] 10-22-2023 Note [facility] 10-22-2023 History of Present illness Narrative (Elements copied from my note dated March 13, 2023, have been reviewed and updated where appropriate, and all reflect current assessment and medical decision making from today's encounter, October 22, 2023) HISTORY OF PRESENT ILLNESS: Luther Castillo is a 68 [address] male Per Dr. Clemente's previous note: H/o refractory anemia who present with an elevation PSA. He saw urology, Dr. Varghese on April 10 and subsequent prostate biopsy on April 19 2021. MRI prostate showed cancer of prostate with capsular invasion some likely metastases to the pelvic bone region. His bone scan subsequently confirmed metastatic disease. Biopsy of prostate confirmed [place], prostate cancer. He started androgen deprivation therapy with leuprolidse acetate 45 mg, abiraterone/pred, & denosumab 120 mg monthly on 04/26/2021 for metastatic (M1) prostate cancer. Current treatment: Zytiga and prednisone Leuprolide acetate 45 mg every 6 months & denosumab 120 mg monthly Here for follow up reviewed history Prostate cancer, PSA undetectable On zytiga 2 years Chronic anemia, worse today Bone marrow biopsy in 2020 was normal. CrCl 54 More anemic. Notes no bleeding, no dark stool. We note microcytic indices with previously demonstrated normal iron levels. CLINICAL IMPRESSION: Prostate cance under good control, today's PSA pending. More anemic CKD grade 3a RECOMMENDATION/PLAN: 1. Iron studies need updating, hemoglobin cascade r/o thalassemia 2. Continue zytiga pred 3. Lupron as scheduled 4. Aranesp, possibly increase dose if anemia persists under 10 Written and verbal health teaching given to patient, patient verbalizes understanding and agrees with treatment plan. PAST MEDICAL HISTORY Diagnosis Date Abdominal pain, left lower quadrant Actinic keratosis Allergic rhinitis, cause unspecified Allergic rhinitis Arthritis Benign neoplasm of rectum and anal canal BPH (benign prostatic hyperplasia) Elevated PSA Dr Mckeon Family history of malignant neoplasm of prostate 02/13/2017 Gastroesophageal reflux disease with esophagitis 10/09/2016 History of squamous cell carcinoma of skin 06/2017 left frontal scalp Iron deficiency anemia, unspecified Prostate cancer (HCC) Dr. 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 Seborrheic keratosis Vasovagal reaction 10/09/2016 PAST SURGICAL HISTORY Procedure Laterality Date COLONOSCOPY 02/27/2022 COLONOSCOPY FLX DX W/COLLJ SPEC WHEN PFRMD 10/2006 Colonoscopy COLONOSCOPY FLX DX W/COLLJ SPEC WHEN PFRMD 03/06/2012 Colonoscopy COLONOSCOPY FLX DX W/COLLJ SPEC WHEN PFRMD 02/10/2017 5 year repeat DIAGNOSTIC ARTHROSCOPY SHOULDER +- SYNOVIAL BX Right 10/11/2016 Right shoulder arthroscopic rotator cuff debridement, biceps tenotomy EGD 02/27/2022 ESOPHAGOGASTRODUODENOSCOPY TRANSORAL DIAGNOSTIC 03/10/2008 EGD ESOPHAGOGASTRODUODENOSCOPY TRANSORAL DIAGNOSTIC 02/26/2016 EGD FRACTURE SURGERY PAST SURGICAL HISTORY OF right wrist surgery PAST SURGICAL HISTORY OF 10/05/2002 right carpal tunnel PAST SURGICAL HISTORY OF 10/19/2002 left carpal tunnel RECONSTRUCTION ROTATOR CUFF AVULSION CHRONIC Right 10/11/2016 Right shoulder subacromial decompression TONSILLECTOMY HX TONSILLECTOMY PRIMARY/SECONDARY <AGE 12 Tonsillectomy FAMILY HISTORY Problem Relation Age of Onset Arthritis Mother Prostate Cancer Father Dx late 70s/80s, metastatic Colon Cancer Sister Dx late 50s No Known Problems Sister Heart Attack Maternal Grandfather Prostate Cancer Paternal Uncle Metastatic Prostate Cancer Paternal cousin Two paternal 1st cousins (brothers to each other), sons of the uncle with cancer Social History Tobacco Use Smoking status: Former Packs/day: 0.25 Years: 2.50 Additional pack years: 0.00 Total pack years: 0.63 Types: Cigarettes Quit date: 07/13/1973 Years since quittin.6 Smokeless tobacco: Never Vaping Use Vaping Use: Never used Substance Use Topics Alcohol use: Not Currently Alcohol/week: 6.0 standard drinks of alcohol Types: 6 Cans of Beer (12oz) per week Comment: occasionally Drug use: No ALLERGIES: ALLERGIES Allergen Reactions Envirornmental [Oth* Intolerance CURRENT OUTPATIENT MEDICATIONS: predniSONE (DELTASONE) 5 mg tablet^Take 1 tablet by mouth two times a day.^Disp: 60 tablet^Rfl: 2 abiraterone 250 mg tablet^TAKE 4 TABLETS (1,000MG) BY MOUTH ONCE DAILY ON AN EMPTY STOMACH 1 HOUR BEFORE OR 2 HOURS AFTER A MEAL^Disp: 120 tablet^Rfl: 5 tamsulosin (FLOMAX) 0.4 mg^TAKE 1 CAPSULE BY MOUTH EVERY DAY^Disp: 90 capsule^Rfl: 5 cimetidine (TAGAMET) 200 mg tablet^Take 200 mg by mouth twice daily.^Disp: ^Rfl: calcium carbonate/vitamin D3 (CALCIUM + D ORAL)^Take 1 tablet by mouth twice daily.^Disp: ^Rfl: leuprolide acetate (ELIGARD SUBCUTANEOUS)^Inject subcutaneously once every 6 months.^Disp: ^Rfl: denosumab (XGEVA SUBCUTANEOUS)^Inject subcutaneously once every month.^Disp: ^Rfl: iv contrast (will be provided with radiology test)^MRI Prostate Inject, intravenously, once for 1 dose. No IV access, insert saline lock prior to the beginning of sedation, infusion, injection of imaging exam. Discontinue saline lock post exam. If Pt. has a central line or IVAD, may access for administration according to line specific nursing protocol. Once exam is complete flush line and de-access according to line specific nursing protocol in the MR contrast administration guidelines link.^Disp: 1 Each^Rfl: 0 REVIEW OF SYSTEMS: GENERAL: No fever, night sweats, weight loss or malaise. All other reviewed and negative other than HPI. PHYSICAL EXAMINATION: VITAL SIGNS: BP 129/79 Pulse 80 Temp 97.8 Wt 160 lb 8 oz (72.8kg) GENERAL APPEARANCE: Well appearing, in no acute distress, alert and oriented x3, well-hydrated, well nourished. I spent a total of 30 minutes on the date of the service which included preparing to see the patient, [id number] patient care, completing clinical documentation, obtaining and/or reviewing separately obtained history, counseling and educating the patient/family/caregiver, ordering medications, tests, or procedures, independently interpreting results (not separately reported), and communicating results to the patient/family/caregiver. Electronically Signed: Dereje Herring MD October 22, 2023 documented in this encounter [facility] 10-16-2023 Telephone encounter Note Please call pt to schedule Stress echo ordered today by Dr Champagne. Follow up appointment already scheduled. [facility] 10-16-2023 Miscellaneous Notes Please call pt to schedule Stress echo ordered today by Dr Champagne. Follow up appointment already scheduled. documented in this encounter [facility] 10-16-2023 Note HNO ID: [id number] Author: DORCAS CHAMPAGNE, DO Service: ? Author Type: Physician Type: Progress Notes Filed: 10/16/2023 17:25 Note Text: [facility] SECTION [facility]IONAL CARDIOLOGY [facility] OUTPATIENT VISIT DATE October 16, 2023 PRIMARY CARE PHYSICIAN: Arsalan Ocampo [address] [place] [address] HISTORY OF PRESENT ILLNESS: Mr. Castillo is a 68 year old male. Patient presents for evaluation treatment options of chest discomfort and dyspnea occurring with exertion abating with rest. Patient has a baseline abnormal EKG with anterior T wave abnormality concerning for ischemia as well. The patient's chest discomfort is sharp without radiation. It is not reproducible to palpation. Is been going on for the last several months. He is in the treatment strategy for stage IV metastatic prostate cancer. He denies orthopnea, paroxysmal nocturnal dyspnea, palpitations, near-syncope or syncope. Patient had a regular treadmill stress test which was normal with the exception of heart rate response which would be considered consistent with deconditioning. The patient is retired and lives at home with his who accompanies today. He has grown children and grandchildren. He is a non-smoker having quit remotely, social drinker. Cardiac risk factors: Age, gender, previous tobacco abuse, hyperlipidemia Impression: 1. Shortness of breath 2. Chest discomfort 3. Abnormal EKG 4. Hyperlipidemia 5. Stage IV metastatic prostate cancer PLAN AND RECOMMENDATIONS: The patient's symptoms are concerning for an anginal equivalent. He does have an abnormal EKG as well but a normal treadmill stress test showing simply deconditioning and no apparent provocation of symptoms. We would therefore recommend further evaluation with nuclear stress imaging. In the absence of findings, would recommend other noncardiac causes of his symptoms which may be simple deconditioning versus pulmonary versus other. If that workup would prove unfruitful, then he may need further evaluation for invasive cardiac testing. Dietary and lifestyle modification were discussed at length to facilitate risk factor reduction. We will look forward to reevaluate him in 6 months time regardless. Vitals: BP 118/64 Pulse 98 Ht 170.2 cm (5' 7) Wt 70 kg (154 lb 5.2 oz) SpO2 97% BMI 24.17 kg/m? Physical Exam Vitals reviewed. Constitutional: General: He is not in acute distress. Appearance: Normal appearance. He is well-developed. He is not diaphoretic. HENT: Head: Normocephalic and atraumatic. Right Ear: External ear normal. Left Ear: External ear normal. Nose: Nose normal. Eyes: General: No scleral icterus. Right eye: No discharge. Left eye: No discharge. Pupils: Pupils are equal, round, and reactive to light. Neck: Thyroid: No thyromegaly. Vascular: No carotid bruit or JVD. Cardiovascular: Rate and Rhythm: Normal rate and regular rhythm. Heart sounds: Murmur heard. Systolic murmur is present with a grade of 1/6. No friction rub. No gallop. Pulmonary: Effort: Pulmonary effort is normal. No respiratory distress. Breath sounds: Normal breath sounds. No wheezing or rales. Abdominal: General: Bowel sounds are normal. Palpations: Abdomen is soft. Musculoskeletal: General: Normal range of motion. Cervical back: Neck supple. Skin: General: Skin is warm and dry. Capillary Refill: Capillary refill takes less than 2 seconds. Coloration: Skin is not pale. Neurological: Mental Status: He is alert and oriented to person, place, and time. Cranial Nerves: No cranial nerve deficit. Psychiatric: Mood and Affect: Mood normal. Mood is not anxious or depressed. Behavior: Behavior normal. Thought Content: Thought content normal. Judgment: Judgment normal. Review of Systems Constitutional: Negative for activity change, appetite change, fatigue and unexpected weight change. HENT: Negative for ear pain and trouble swallowing. Eyes: Negative for pain and visual disturbance. Respiratory: Positive for shortness of breath. Negative for chest tightness. Cardiovascular: Positive for chest pain. Negative for palpitations and leg swelling. Gastrointestinal: Negative for abdominal pain and blood in stool. Endocrine: Negative for cold intolerance and heat intolerance. Genitourinary: Negative for dysuria, hematuria and scrotal swelling. Musculoskeletal: Negative for arthralgias and myalgias. Skin: Negative for pallor and rash. Allergic/Immunologic: Negative for immunocompromised state. Neurological: Negative for dizziness, syncope and light-headedness. Hematological: Negative for adenopathy. Does not bruise/bleed easily. Psychiatric/Behavioral: Negative for sleep disturbance. The patient is not nervous/anxious. PAST MEDICAL HISTORY Diagnosis Date Abdominal pain, left lower quadrant Actinic keratosis Al (more content not included)... [facility] 10-16-2023 History of Present illness Narrative Images from the original note were not included. [facility] SECTION [facility]AL CARDIOLOGY [facility] OUTPATIENT VISIT DATE October 16, 2023 PRIMARY CARE PHYSICIAN: Arsalan Ocampo [address] [place] [address] HISTORY OF PRESENT ILLNESS: Mr. Castillo is a 68 year old male. Patient presents for evaluation treatment options of chest discomfort and dyspnea occurring with exertion abating with rest. Patient has a baseline abnormal EKG with anterior T wave abnormality concerning for ischemia as well. The patient's chest discomfort is sharp without radiation. It is not reproducible to palpation. Is been going on for the last several months. He is in the treatment strategy for stage IV metastatic prostate cancer. He denies orthopnea, paroxysmal nocturnal dyspnea, palpitations, near-syncope or syncope. Patient had a regular treadmill stress test which was normal with the exception of heart rate response which would be considered consistent with deconditioning. The patient is retired and lives at home with his who accompanies today. He has grown children and grandchildren. He is a non-smoker having quit remotely, social drinker. Cardiac risk factors: Age, gender, previous tobacco abuse, hyperlipidemia Impression: 1. Shortness of breath 2. Chest discomfort 3. Abnormal EKG 4. Hyperlipidemia 5. Stage IV metastatic prostate cancer PLAN AND RECOMMENDATIONS: The patient's symptoms are concerning for an anginal equivalent. He does have an abnormal EKG as well but a normal treadmill stress test showing simply deconditioning and no apparent provocation of symptoms. We would therefore recommend further evaluation with nuclear stress imaging. In the absence of findings, would recommend other noncardiac causes of his symptoms which may be simple deconditioning versus pulmonary versus other. If that workup would prove unfruitful, then he may need further evaluation for invasive cardiac testing. Dietary and lifestyle modification were discussed at length to facilitate risk factor reduction. We will look forward to reevaluate him in 6 months time regardless. Vitals: BP 118/64 Pulse 98 Ht 170.2 cm (5' 7) Wt 70 kg (154 lb 5.2 oz) SpO2 97% BMI 24.17 kg/m Physical Exam Vitals reviewed. Constitutional: General: He is not in acute distress. Appearance: Normal appearance. He is well-developed. He is not diaphoretic. HENT: Head: Normocephalic and atraumatic. Right Ear: External ear normal. Left Ear: External ear normal. Nose: Nose normal. Eyes: General: No scleral icterus. Right eye: No discharge. Left eye: No discharge. Pupils: Pupils are equal, round, and reactive to light. Neck: Thyroid: No thyromegaly. Vascular: No carotid bruit or JVD. Cardiovascular: Rate and Rhythm: Normal rate and regular rhythm. Heart sounds: Murmur heard. Systolic murmur is present with a grade of 1/6. No friction rub. No gallop. Pulmonary: Effort: Pulmonary effort is normal. No respiratory distress. Breath sounds: Normal breath sounds. No wheezing or rales. Abdominal: General: Bowel sounds are normal. Palpations: Abdomen is soft. Musculoskeletal: General: Normal range of motion. Cervical back: Neck supple. Skin: General: Skin is warm and dry. Capillary Refill: Capillary refill takes less than 2 seconds. Coloration: Skin is not pale. Neurological: Mental Status: He is alert and oriented to person, place, and time. Cranial Nerves: No cranial nerve deficit. Psychiatric: Mood and Affect: Mood normal. Mood is not anxious or depressed. Behavior: Behavior normal. Thought Content: Thought content normal. Judgment: Judgment normal. Review of Systems Constitutional: Negative for activity change, appetite change, fatigue and unexpected weight change. HENT: Negative for ear pain and trouble swallowing. Eyes: Negative for pain and visual disturbance. Respiratory: Positive for shortness of breath. Negative for chest tightness. Cardiovascular: Positive for chest pain. Negative for palpitations and leg swelling. Gastrointestinal: Negative for abdominal pain and blood in stool. Endocrine: Negative for cold intolerance and heat intolerance. Genitourinary: Negative for dysuria, hematuria and scrotal swelling. Musculoskeletal: Negative for arthralgias and myalgias. Skin: Negative for pallor and rash. Allergic/Immunologic: Negative for immunocompromised state. Neurological: Negative for dizziness, syncope and light-headedness. Hematological: Negative for adenopathy. Does not bruise/bleed easily. Psychiatric/Behavioral: Negative for sleep disturbance. The patient is not nervous/anxious. PAST MEDICAL HISTORY Diagnosis Date Abdominal pain, left lower quadrant Actinic keratosis Allergic rhinitis, cause unspecified Allergic rhinitis Arthritis Benign neoplasm of rectum and anal canal BPH (benign prostatic hyperplasia) Elevated PSA Dr Mckeon Family history of malignant neoplasm of prostate 02/13/2017 Gastroesophageal reflux disease with esophagitis 10/09/2016 History of squamous cell carcinoma of skin 06/2017 left frontal scalp Iron deficiency anemia, unspecified Prostate cancer (HCC) Dr. 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 Seborrheic keratosis Vasovagal reaction 10/09/2016 PAST SURGICAL HISTORY Procedure Laterality Date COLONOSCOPY 02/27/2022 COLONOSCOPY FLX DX W/COLLJ SPEC WHEN PFRMD 10/2006 Colonoscopy COLONOSCOPY FLX DX W/COLLJ SPEC WHEN PFRMD 03/06/2012 Colonoscopy COLONOSCOPY FLX DX W/COLLJ SPEC WHEN PFRMD 02/10/2017 5 year repeat DIAGNOSTIC ARTHROSCOPY SHOULDER +- SYNOVIAL BX Right 10/11/2016 Right shoulder arthroscopic rotator cuff debridement, biceps tenotomy EGD 02/27/2022 ESOPHAGOGASTRODUODENOSCOPY TRANSORAL DIAGNOSTIC 03/10/2008 EGD ESOPHAGOGASTRODUODENOSCOPY TRANSORAL DIAGNOSTIC 02/26/2016 EGD FRACTURE SURGERY PAST SURGICAL HISTORY OF right wrist surgery PAST SURGICAL HISTORY OF 10/05/2002 right carpal tunnel PAST SURGICAL HISTORY OF 10/19/2002 left carpal tunnel RECONSTRUCTION ROTATOR CUFF AVULSION CHRONIC Right 10/11/2016 Right shoulder subacromial decompression TONSILLECTOMY HX TONSILLECTOMY PRIMARY/SECONDARY <AGE 10 Tonsillectomy Social History Tobacco Use Smoking status: Former Packs/day: 0.25 Years: 2.50 Additional pack years: 0.00 Total pack years: 0.63 Types: Cigarettes Quit date: 07/13/1973 Years since quittin.2 Smokeless tobacco: Never Vaping Use Vaping Use: Never used Substance Use Topics Alcohol use: Not Currently Alcohol/week: 6.0 standard drinks of alcohol Types: 6 Cans of Beer (12oz) per week Comment: occasionally Drug use: No FAMILY HISTORY Problem Relation Age of Onset Arthritis Mother Prostate Cancer Father Dx late 70s/80s, metastatic Colon Cancer Sister Dx late 50s No Known Problems Sister Heart Attack Maternal Grandfather Prostate Cancer Paternal Uncle Metastatic Prostate Cancer Paternal cousin Two paternal 1st cousins (brothers to each other), sons of the uncle with cancer ALLERGIES Allergen Reactions Ragweed Pollen Other: See Comments Watering/itchy eyes CURRENT MEDICATIONS: darbepoetin dagmar in alb[place] john (ARANESP INJECTION) by INJECTION(UNSPECIFIED PARENTERAL ROUTES) route every 4 weeks. PRN abiraterone 250 mg tablet TAKE 4 TABLETS (1,000MG) BY MOUTH ONCE DAILY ON AN EMPTY STOMACH 1 HOUR BEFORE OR 2 HOURS AFTER A MEAL atorvastatin (LIPITOR) 20 mg tablet Take 1 tablet by mouth daily at bedtime. For cholesterol. predniSONE (DELTASONE) 5 mg tablet take 1 tablet by mouth twice daily tamsulosin (FLOMAX) 0.4 mg TAKE 1 CAPSULE BY MOUTH EVERY DAY cimetidine (TAGAMET) 200 mg tablet Take 200 mg by mouth twice daily. calcium carbonate/vitamin D3 (CALCIUM + D ORAL) Take 1 tablet by mouth twice daily. leuprolide acetate (ELIGARD SUBCUTANEOUS) Inject subcutaneously once every 6 months. denosumab (XGEVA SUBCUTANEOUS) Inject subcutaneously once every month. iv contrast (will be provided with radiology test) MRI Prostate Inject, intravenously, once for 1 dose. No IV access, insert saline lock prior to the beginning of sedation, infusion, injection of imaging exam. Discontinue saline lock post exam. If Pt. has a central line or IVAD, may access for administration according to line specific nursing protocol. Once exam is complete flush line and de-access according to line specific nursing protocol in the MR contrast administration guidelines link. (Patient not taking: Reported on 10/16/2023) Dorcas Champagne DO, FACC, FAC Instrumental Musician, [facility] Instrumental Musician, [facility] Instrumental Musician, [facility] Instrumental Musician, [facility] Instrumental Musician, [facility] Clinical Tester Waste Disposal Leakage Profressor of Medicine, [facility] - [facility] Staff Change Booth Attendant, Rocco and Juli Yeung Department of Cardiovascular Medicine/Heart and Vascular [place], [facility] Please note: This note has been produced using speech recognition software and may contain errors related to that system including mario, punctuation, spelling, words, gender and phrases that may be inappropriate. documented in this encounter [facility] 10-03-2023 Telephone encounter Note Rx request from pharmacy. Next scheduled apt with dept 10/21 last apt 03/13/23 Lorin Zhang LPN [facility] 10-03-2023 Miscellaneous Notes Rx request from pharmacy. Next scheduled apt with dept 10/21 last apt 03/13/23 Lorin Zhang LPN documented in this encounter [facility] 10-02-2023 Nurse Note Lupron injection administered, left buttock, tolerated well, no immediate adverse reactions noted. Abigail Ferrer LPN [facility] 10-02-2023 Nurse Note Lupron injection administered, left buttock, tolerated well, no immediate adverse reactions noted. Abigail Ferrer LPN documented in this encounter [facility] 09-24-2023 Note [facility] 09-24-2023 History of Present illness Narrative Pt here for injection of Aranesp in the right arm and xgeva given SQ in the left arm. Pt tolerated well. Lorin Zhang LPN documented in this encounter [facility] 09-10-2023 Telephone encounter Note Please see patient message below. Prescription Refill Information The patient has been identified by name and date of : Yes Caregiver verified no other encounters exist for this prescription request: Yes Caregiver confirmed with patient/requestor that no other refills are due, in the near future, with this provider at this time: Yes The last office visit in the department: 06/11/23 Does the patient have a future office visit with this provider/department: Yes, 02/03/24 Requested Prescriptions Pending Prescriptions Disp Refills atorvastatin (LIPITOR) 20 mg tablet 90 tablet 0 Sig: Take 1 tablet by mouth daily at bedtime. For cholesterol. CHRIS Goldsmith September 10, 2023 1:02 PM [facility] 09-10-2023 Miscellaneous Notes Please see patient message below. Prescription Refill Information The patient has been identified by name and date of : Yes Caregiver verified no other encounters exist for this prescription request: Yes Caregiver confirmed with patient/requestor that no other refills are due, in the near future, with this provider at this time: Yes The last office visit in the department: 06/11/23 Does the patient have a future office visit with this provider/department: Yes, 02/03/24 Requested Prescriptions Pending Prescriptions Disp Refills atorvastatin (LIPITOR) 20 mg tablet 90 tablet 0 Sig: Take 1 tablet by mouth daily at bedtime. For cholesterol. CHRIS Goldsmith September 10, 2023 1:02 PM documented in this encounter [facility] 08-28-[address] Herring reviewed labs and ok with follow up in October. Krista Dorsey RN [facility] Work Phone: 08-28-[address] Herring reviewed labs and ok with follow up in October. Krista Dorsey RN Spoke with patient when he was here and scheduled OV in October as Dr. Herring didn't have any availability on the same day as his September injection appointment. Is this acceptable? Yaritza Carvajal Per Epic appointment notes, patient due OV in September. Krista Dorsey RN Pt states every time he has needed the aranesp injection he feels terrible for at least 3 days after. Headaches and fatigue, no initiative to do much. He does not have a f/u scheduled with you at this time. documented in this encounter [facility] 08-27-2023 Telephone encounter Note Spoke with patient when he was here and scheduled OV in October as Dr. Herring didn't have any availability on the same day as his September injection appointment. Is this acceptable? Yaritza Carvajal [facility] 08-27-2023 Telephone encounter Note Per Epic appointment notes, patient due OV in September. Krista Dorsey RN [facility] 08-27-2023 Telephone encounter Note Pt states every time he has needed the aranesp injection he feels terrible for at least 3 days after. Headaches and fatigue, no initiative to do much. He does not have a f/u scheduled with you at this time. [facility] 08-05-2023 Telephone encounter Note Pt read MC message. [facility] 08-05-2023 Miscellaneous Notes Pt read MC message. Dr. Denys hooks cancelled and rescheduled to soonest in [place]. 1st attempt to notify pt, LVM and sent MC message. documented in this encounter [facility] 08-04-[address] Denys hooks cancelled and rescheduled to soonest in [place]. 1st attempt to notify pt, LVM and sent MC message. [facility] 07-31-2023 Nurse Note Patient here for injection of Xgeva, given SQ in left arm. Pt denies any jaw or tooth pain. Aranesp inj given in right arm Pt tolerated well. Lorin Zhang LPN [facility] 07-31-2023 Nurse Note Patient here for injection of Xgeva, given SQ in left arm. Pt denies any jaw or tooth pain. Aranesp inj given in right arm Pt tolerated well. Lorin Zhang LPN documented in this encounter [facility] 06-19-2023 Miscellaneous Notes Call to patient, aware ok to receive more Xgeva from dentist. We will keep next Xgeva as scheduled on 07/03/23. Patient denies any further jaw pain since. Denies other issues. States he was evaluated by his PCP, has a stress test and was told that was normal. Patient denies further questions or concerns. Krista Dorsey RN Received call back from [facility]. Patient was in his office and had an exam on 06/04/23, the day before in our office stating jaw pain for the past week. Dr. Christian does not think patient has any contraindication to receive more Xgeva. Krista Dorsey RN Call to [facility], explained to spa receptionist that patient needs dental evaluation for jaw pain that he was having. Asked that the dentist review x-rays. We need to know if no issues and ok to continue on Xgeva. She will discuss with Dr. Christian and call us back. Krista Dorsey RN Spoke with patient. He sees Dr. Roberts at [facility] in [place]. [phone]. He is aware that we will contact them for dental clearance to continue on treatment or not. Krista Dorsey RN Office closed at 12noon today. Will reach out to them on Friday. Krista Dorsey RN I have not received anything by email. Call to patient, no answer, left message to call back and let us know the dentist name/number so we can reach out to them. Krista Dorsey RN I have checked my email and nothing has come through yet. Krista Dorsey RN Dental office called the [facility] and stated they would email xray results. RNCC aware. Sahara Mcneill LPN Call to patient, states he would like to know what x-ray he needs to have and then he can call back to his dentist and let them know what we are asking them to do. He is aware that Dr. Herring is out of office until 06/10/23 and can expect a phone back then. He is ok with this plan. Patient states that his jaw hurts every now and then but not bad. He is aware that we will continue to hold xgeva until we get a clearance from dentist. He is aware that we need the dentist to evaluate his pain, assess why he is having pain and why. Dentist needs to decide if it's something tooth or jaw related that needs addressed. And, a normal dental x-ray in their office if needed. Patient states he will stop by dentist office on 06/09/23 and talk this over with them. He will have them fax over their evaluation to us. Krista Dorsey RN Patient states Dr. Herring informed him to have an xray of his jaw. He spoke with his dentist, who referred him to an oral surgeon. Oral surgeon was unsure of what was needed and stated a hospital could do xray and be covered by his medical insurance. I do not see any orders in [place]. Patient is asking to speak to clinical. documented in this encounter [facility] 06-17-2023 Miscellaneous Notes Patient notified of results. Patient verbalizes understanding. Yaritza Guerrier RN Left a message for pt to call the office and ask to speak to a nurse. Sarah Lemus LPN ----- Message from Catherine Peraza APRN.DIRECTOR OF HEALTH CARE MARKETING sent at 06/17/2023 1:46 PM EDT ----- Stress testing was normal. Catherine Peraza APRN.DIRECTOR OF HEALTH CARE MARKETING documented in this encounter [facility] 06-17-2023 Miscellaneous Notes Patient has been identified by name and date of : Yes, Patient phones for refill(s): Requested Prescriptions Pending Prescriptions Disp Refills atorvastatin (LIPITOR) 20 mg tablet 90 tablet 0 Sig: Take 1 tablet by mouth daily at bedtime. For cholesterol. Date of last office visit in primary care: 06/11/2023 Date of next office visit in primary care: 02/03/2024 Please advise. Thank you. Antoinette Martini LPN. documented in this encounter [facility] 06-16-2023 Miscellaneous Notes Spoke with patient regarding reminder for stress test tomorrow and given instructions. documented in this encounter [facility] 06-11-2023 Miscellaneous Notes TC to patient who verbalized understanding of providers message and has no questions at this time. CHRIS Goldsmith ----- Message from Arsalan Ocampo MD sent at 06/11/2023 4:51 PM EST ----- Normal labs. No changes in regimen based on results. The 10-year ASCVD risk score (Blair HARRELL, et al., 2019) is: 11.1% Values used to calculate the score: Age: 68 years Sex: Male Is Non- : No Diabetic: No Tobacco smoker: No Systolic Blood Pressure: 114 mmHg Is BP treated: No HDL Cholesterol: 78 mg/dL Total Cholesterol: 161 mg/dL documented in this encounter [facility] 06-11-2023 History of Present illness Narrative Radiology Service Progress Note PATIENT NAME: Luther Castillo DATE OF SERVICE: June 11, 2023 TIME: 11:25 AM PATIENT IDENTITY VERIFICATION COMPLETED USING TWO (2) IDENTIFIERS: Name and Date of confirmed by patient verbally. FALL SCREENING: Has the patient had 2 falls in the last year or 1 fall with injury or currently using an Ambulatory Assistive Device (Walker, Cane, Wheelchair, Crutches, etc.)? No PATIENT GENDER DATA: Male PATIENT RELEVANT IMPLANT DATA REVIEWED: Not Applicable PATIENT PRESENTS WITH AN IMPLANTABLE OR ATTACHED ROLL ICER MACHINE: No RADIOLOGY DEPARTMENT: General X-ray: Exam(s) Completed: Chest X-Ray PERIPHERAL IV DATA: Not applicable SIGNED BY: RT Teresita(R) June 11, 2023 11:25 AM documented in this encounter [facility] 06-11-2023 History of Present illness Narrative 06/11/2023 Patient presents with: Discussion: Oncology Dr. Herring encouraged patient to discuss stress test with primary care. Patient is complaining to back pain by waist line that has been intense the last 3-4 days. SUBJECTIVE: This is a 68 year old, accompanied by , that is here today for Above Complaints.. Being treated for stage 4 prostare cancer. Has been feeling pretty fatigued and SOB. Tired easily and winded with exertion. Admits to some dull aching mid chest pain and SOB when walking hard. Resolves when stops. Denies accompanying jaw/back pain, diaphoreses, lightheadedness, dizziness, dyspnea, palpitations, nausea or vomiting. Mild swelling lower legs at end of day- resolves after rest. Was having some jaw pain thought possible related to his chemo treatment. Recently saw dentist and had xray's which were fine per patient. Adits to some congestion whistling or wheezing when he lays down at night but doesn't feel SOB with this and is able to lay flat Littke low back pain to left side last few days- has been using heting pad and sitting down helps some. Described as dull ache. Some better today. Hx of back injections. Denies recent injury, saddle anaesthesia, extremity numbness, tingling, weakness, urinary/bowel incontinence or inability. PAST MEDICAL HISTORY Diagnosis Date Abdominal pain, left lower quadrant Actinic keratosis Allergic rhinitis, cause unspecified Allergic rhinitis Arthritis Benign neoplasm of rectum and anal canal BPH (benign prostatic hyperplasia) Elevated PSA Dr Mckeon Family history of malignant neoplasm of prostate 02/13/2017 Gastroesophageal reflux disease with esophagitis 10/09/2016 History of squamous cell carcinoma of skin 06/2017 left frontal scalp Iron deficiency anemia, unspecified Prostate cancer (HCC) Dr. 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 abiraterone 250 mg tablet TAKE 4 TABLETS (1,000MG) BY MOUTH ONCE DAILY ON AN EMPTY STOMACH 1 HOUR BEFORE OR 2 HOURS AFTER A MEAL atorvastatin (LIPITOR) 20 mg tablet Take 1 tablet by mouth daily at bedtime. For cholesterol. tamsulosin (FLOMAX) 0.4 mg TAKE 1 CAPSULE BY MOUTH EVERY DAY cimetidine (TAGAMET) 200 mg tablet Take 200 mg by mouth twice daily. calcium carbonate/vitamin D3 (CALCIUM + D ORAL) Take 1 tablet by mouth twice daily. leuprolide acetate (ELIGARD SUBCUTANEOUS) Inject subcutaneously once every 6 months. denosumab (XGEVA SUBCUTANEOUS) Inject subcutaneously once every month. iv contrast (will be provided with radiology test) MRI Prostate Inject, intravenously, once for 1 dose. No IV access, insert saline lock prior to the beginning of sedation, infusion, injection of imaging exam. Discontinue saline lock post exam. If Pt. has a central line or IVAD, may access for administration according to line specific nursing protocol. Once exam is complete flush line and de-access according to line specific nursing protocol in the MR contrast administration guidelines link. No current facility-administered medications for this visit. Medications and allergies reviewed by this provider. SOCIAL HISTORY Social History Tobacco Use Smoking status: Former Packs/day: 0.25 Years: 2.50 Additional pack years: 0.00 Total pack years: 0.63 Types: Cigarettes Quit date: 07/13/1973 Years since quittin.9 Smokeless tobacco: Never Vaping Use Vaping Use: Never used Substance Use Topics Alcohol use: Not Currently Alcohol/week: 6.0 standard drinks of alcohol Types: 6 Cans of Beer (12oz) per week Comment: occasionally Drug use: No REVIEW OF SYSTEMS All other reviewed and negative other than HPI. OBJECTIVE: BP 114/62 Pulse 106 Resp 16 Wt 71.9 kg (158 lb 9.6 oz) SpO2 96% BMI 24.84 kg/m . Vital signs reviewed by this provider. APPEARANCE Well appearing, alert, in no acute distress, well-hydrated, well nourished. EYES conjunctiva and sclera normal. HEART RRR with normal S1 and S2, no murmurs, no gallops, no JVD appreciated LUNG clear to auscultation. No wheezes, rhonchi or rales EXTREMITIES Extremities normal, No deformities, No skin discoloration, and No edema SKIN Skin color, texture, turgor normal, no suspicious rashes or lesions to exposed skin Covid-19 Vaccine(2022- season) due on 03/13/2023 Advance Directive Discussion due on 04/07/2023 Depression Assessment due on 04/07/2023 Diabetes Screening due on 06/10/2026 Colorectal Cancer Screening due on 02/27/2027 Lipid Screening due on 03/13/2028 DTaP,Tdap,Td Vaccine(4 - Td or Tdap) due on 09/23/2032 Abdominal Aortic Aneurysm Screening Completed Influenza Vaccine Completed RSV Vaccine Completed Hepatitis C Screening Completed Shingrix Vaccine Completed Pneumococcal Vaccine: 65+ Completed HPV Vaccine Aged Out ASSESSMENT/PLAN: 1. SOB (shortness of breath) - ICD9: 786.05, ICD10: R06.02 (primary diagnosis) - consider heart vs pulm - no red flag symptoms or exam findings - red flag symptoms discussed, verbalizes understanding - ECG COMPLETE - XR CHEST 2V FRONTAL/LAT - ECHO - PERFLUTREN LIPID MICROSPHERES 1.1 MG/ML INJECTION IN NS 10 ML - SODIUM CHLORIDE 0.9 % (FLUSH) INJECTION SYRINGE - EXERCISE STRESS ECG (WITHOUT IMAGING) EKG Interpretation: RHYTHM: Normal sinus rhythm at 91 beats per minute AXIS: Left axis deviation INTERVALS: Normal [place] interval, possible left atrial enlargement QRS COMPLEX: Normal ST SEGMENT: T wave abnormality , consider anterior ischemia QT INTERVAL: Normal COMPARED WITH PRIOR: changed T wave abnormality - CONSULT TO CARDIOLOGY, to ER with red flag symptoms 2. Chest pain, unspecified type - ICD9: 786.50, ICD10: R07.9 Chest pain possible coronary ischemia related symptom - ECG COMPLETE - XR CHEST 2V FRONTAL/LAT - ECHO - PERFLUTREN LIPID MICROSPHERES 1.1 MG/ML INJECTION IN NS 10 ML - SODIUM CHLORIDE 0.9 % (FLUSH) INJECTION SYRINGE - EXERCISE STRE- CONSULT TO CARDIOLOGYSS ECG (WITHOUT IMAGING) - CONSULT TO CARDIOLOGY - plan as above 3. Acute left-sided low back pain, unspecified whether sciatica present - ICD9: 724.2, ICD10: M54.50 - no red flag symptoms - red flag symptoms discussed, verbalizes understanding - follow-up for further evaluation if persists Catherine Peraza APRN.CNP Prescription instructions reviewed with patient as applicable. Patient advised if symptoms do not improve or if symptoms worsen sooner, to contact their primary care physician. Potential red flag symptoms discussed with the patient. Reviewed appropriate action plan to take if red flag symptoms occur. Patient agreeable to treatment plan. Medical Decision Making: Problems: Moderate: New problem with uncertain prognosis Risk: Moderate: Moderate risk from testing/treatment Medical Decision Making Level: 4 - Moderate documented in this encounter [facility] 06-05-2023 History of Present illness Narrative Xgeva held due to some jaw pain earlier this week. Dr Phil paz. Instructed Dental x-rays and follow up with PCP for SOB during his daily walks. See phone note to PCP. Tuckerp given SQ in right arm for Hgb of 9.9 Lorin Zhang LPN documented in this encounter [facility] 05-08-2023 History of Present illness Narrative Pt here for injection of Xgeva. Given SQ in left arm. Pt tolerated well. Aranesp injection deferred. Pt did not meet treatment parameters. Hgb 10.2 Lorin Zhang LPN documented in this encounter [facility] 03-19-2023 Miscellaneous Notes I my chart messaged patient to let him know the fast was long enough. He should start the medicine and recheck labs in 3 months. Catherine Peraza APRN.DIRECTOR OF HEALTH CARE MARKETING Pt called and is notified of providers results and instructions. Pt voices understanding. Pt had sent a [employer] message on 03/17/23 stating, Dr. Ocampo's office called me today and prescribed medication for high cholesterol . I am not sure I fasted long enough before the blood draw. I ate a late dinner at 9:00 - 9:30 pm the night before the blood draw at 8:30 am the next morning. Should I have another blood draw before I start that medication for high cholesterol? Thanks. Let Pt know that he should have been fine with his fasting time as it says fast for 10-12 hours prior to lab. Pt just wanted to make sure this was ok with provider. Derrek Naqvi, RN Rx sent. Repeat labs ordered. Call with any concerning side effects. TC to patient who verbalized understanding of providers message and is agreeable to statin. Patient asking provider if it is okay to start this when reviewing the other medications he is currently on. Patient requesting medication be sent to [facility] in [place] ([address]). ----- Message from Arsalan Ocampo MD sent at 03/17/2023 2:14 PM EST ----- Total cholesterol is high compared to last check 4 years ago. Based on age and risk factors, patient is moderate risk for heart attack or stroke in the next 10 years. Recommend moderate intensity statin daily and recheck labs in 3 months. Most common side effect: muscle aches. If agreeable, will send rx to requested pharmacy. The 10-year ASCVD risk score (Blair DK, et al., 2019) is: 13.5% Values used to calculate the score: Age: 67 years Sex: Male Is Non- : No Diabetic: No Tobacco smoker: No Systolic Blood Pressure: 129 mmHg Is BP treated: No HDL Cholesterol: 90 mg/dL Total Cholesterol: 214 mg/dL documented in this encounter [facility] 03-18-2023 Miscellaneous Notes Added to TE from 03/17/23. See pt mychart message. documented in this encounter [facility] 03-17-2023 Miscellaneous Notes Patient informed Schedule is update for patient and 1st attempt message left for him to contact office and confirm appts. -Please advise that 04/01 has been canceled. -Patient will have all 3 injections on 04/10. -Advise patient that 10/01 appointments have been canceled due to change in schedule and will be rescheduled with September injections. Per Dr. Herring, Aranesp is Qmonth. He ask that we adjust the dates within [place]. Krista Dorsey, ERIN Patient scheduled for Q2WK Aranesp on 04/01. Would not be due again until 04/15. Notes were in appt notes stating QMO Aranesp and to give when patient gets Xgeva. Patient is due for Xgeva on 04/10. Okay to give 5 days early? Please confirm of QMO or Q2WK for Aranesp. Thank you. Appears pt. Needs scheduled for every 2 week cbc poss Aranesp. Initial injection scheduled 04/01. [facility] please schedule and notify pt.. Will need to clarify with Dr. Herring . Abigail Ferrer LPN Images from the original note were not included. Call to patient and aware of above. Questions answered. Appointment notes changed. Krista Dorsey, ERIN documented in this encounter [facility] 03-13-2023 Nurse Note Pt here for injection of Faslodex. Given IM in B/L buttocks. Pt tolerated well. For all other information regarding today, see today's OV note with Dr Herring. Lorin Zhang LPN documented in this encounter [facility] 02-18-2023 Miscellaneous Notes Patient has been identified by name and date of : Yes Requested Prescriptions Pending Prescriptions Disp Refills predniSONE (DELTASONE) 5 mg tablet 60 tablet 2 Sig: Take 1 tablet by mouth two times a day. RX INSTRUCTIONS: Patient aware RX will be sent to pharmacy. No need to notify patient. Abigail Ferrer LPN documented in this encounter [facility] 02-13-2023 History of Present illness Narrative Pt here for injection of Xgeva. Given sq in left arm. Pt tolerated well. Lroin Zhnag LPN documented in this encounter [facility] 01-16-2023 Nurse Note Pt here for injection of Xgeva. Given sq in left arm. Pt tolerated well. Lorin Zhang LPN documented in this encounter [facility] 01-14-2023 Miscellaneous Notes Rx pended. Lorin Zhang LPN documented in this encounter [facility] 12-19-2022 History of Present illness Narrative Pt here for injection of Xgeva. Given SQ in right arm. Pt tolerated well. Lorin Zhang LPN documented in this encounter [facility] 12-02-2022 History of Present illness Narrative HISTORY AND PHYSICAL Luther Castillo 1955 REFERRING PHYSICIAN: Arsalan Ocampo,* CHIEF COMPLAINT: Thrombosed hemorrhoid HPI: Luther is a 67 year old male referred for possible thrombosed hemorrhoid. States first noticed a hard lump in the anal area a few months ago. Initially had some itching and irritation but states otherwise this has never really been painful or bothersome. he denies a history of constipation and straining. Denies rectal bleeding or bowel habits changes. The patient was seen by his primary care physician He has been using OTC hemorrhoid creams with steroid and notes that lump has decreased in size since using these although not completely gone. He was noted on PCP exam to have possible thrombosed hemorrhoid and was referred for surgical evaluation. 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 Vasovagal reaction 10/09/2016 OPERATIONS: PAST SURGICAL HISTORY Procedure Laterality Date COLONOSCOPY 02/27/2022 COLONOSCOPY FLX DX W/COLLJ SPEC WHEN PFRMD 10/2006 Colonoscopy COLONOSCOPY FLX DX W/COLLJ SPEC WHEN PFRMD 03/06/2012 Colonoscopy COLONOSCOPY FLX DX W/COLLJ SPEC WHEN PFRMD 02/10/2017 5 year repeat DIAGNOSTIC ARTHROSCOPY SHOULDER +- SYNOVIAL BX Right 10/11/2016 Right shoulder arthroscopic rotator cuff debridement, biceps tenotomy EGD 02/27/2022 ESOPHAGOGASTRODUODENOSCOPY TRANSORAL DIAGNOSTIC 03/10/2008 EGD ESOPHAGOGASTRODUODENOSCOPY TRANSORAL DIAGNOSTIC 02/26/2016 EGD FRACTURE SURGERY PAST SURGICAL HISTORY OF right wrist surgery PAST SURGICAL HISTORY OF 10/05/2002 right carpal tunnel PAST SURGICAL HISTORY OF 10/19/2002 left carpal tunnel RECONSTRUCTION ROTATOR CUFF AVULSION CHRONIC Right 10/11/2016 Right shoulder subacromial decompression TONSILLECTOMY HX TONSILLECTOMY PRIMARY/SECONDARY <AGE 12 Tonsillectomy CURRENT MEDICATIONS: Current Outpatient Medications Medication Sig Dispense Refill tamsulosin (FLOMAX) 0.4 mg TAKE 1 CAPSULE BY MOUTH EVERY DAY 90 capsule 5 abiraterone 250 mg tablet TAKE 4 TABLETS (1,000MG) BY MOUTH ONCE DAILY ON AN EMPTY STOMACH 1 HOUR BEFORE OR 2 HOURS AFTER A MEAL 120 tablet 5 cimetidine (TAGAMET) 200 mg tablet Take 200 mg by mouth twice daily. calcium carbonate/vitamin D3 (CALCIUM + D ORAL) Take 1 tablet by mouth twice daily. leuprolide acetate (ELIGARD SUBCUTANEOUS) Inject subcutaneously once every 6 months. denosumab (XGEVA SUBCUTANEOUS) Inject subcutaneously once every month. predniSONE (DELTASONE) 5 mg tablet Take 1 tablet by mouth twice daily. 60 tablet 2 iv contrast (will be provided with radiology test) MRI Prostate Inject, intravenously, once for 1 dose. No IV access, insert saline lock prior to the beginning of sedation, infusion, injection of imaging exam. Discontinue saline lock post exam. If Pt. has a central line or IVAD, may access for administration according to line specific nursing protocol. Once exam is complete flush line and de-access according to line specific nursing protocol in the MR contrast administration guidelines link. 1 Each 0 No current facility-administered medications for this visit. ALLERGIES: Envirornmental [Other] PERSONAL HISTORY: Social History Tobacco Use Smoking status: Former Packs/day: 0.25 Years: 2.50 Additional pack years: 0.00 Total pack years: 0.63 Types: Cigarettes Quit date: 07/13/1973 Years since quittin.4 Smokeless tobacco: Never Vaping Use Vaping Use: Never used Substance Use Topics Alcohol use: Yes Alcohol/week: 15.0 standard drinks of alcohol Types: 6 Cans of Beer (12oz) per week Comment: occasionally Drug use: No FAMILY HISTORY: FAMILY HISTORY Problem Relation Age of Onset Arthritis Mother Prostate Cancer Father Dx late 70s/80s, metastatic Colon Cancer Sister Dx late 50s None Sister Heart Attack Maternal Grandfather Prostate Cancer Paternal Uncle Metastatic Prostate Cancer Paternal cousin Two paternal 1st cousins (brothers to each other), sons of the uncle with cancer REVIEW OF SYMPTOMS: The review of systems data was entered by the nurse and reviewed by nm Nursing Notes: Marilin Melvin LPN 11/19/2022 1:27 PM Signed REVIEW OF SYSTEMS: General: The patient denies fatigue, denies weight loss, denies weight gain, denies feeling hot, and denies feelings of cold. Eyes: The patient denies glaucoma, denies eye injury/surgery, does not wear glasses or contacts. Ear/Nose/Throat: The patient denies allergies, NOTES hayfever, denies ear infections, and denies bloody noses. Cardiovascular: The patient denies chest pain, denies heart disease, denies high blood pressure,denies cardiac stent, denies prior heart attack, denies irregular heart beat, denies high cholesterol, denies poor circulation, denies heart failure, other cardiac issues, denies claudication, denies cold feet, denies peripheral arterial stent. Respiratory: The patient denies tuberculosis, denies pneumonia, denies frequent cough, denies pulmonary embolism, denies shortness of breath, and denies coughing up blood. Gastrointestinal: The patient denies difficulty swallowing, NOTES acid reflux, denies ulcers, denies vomiting, denies jaundice/hepatitis, denies gallbladder problems, denies black or tarry stools, NOTES hemorrhoids, denies bleeding from rectum, denies diverticulitis, denies constipation, denies diarrhea, denies loss of stool control, and denies hernias. Kidney/Bladder: The patient denies kidney stones, denies urine infections, and denies bloody urine. Skin: The patient NOTES a history of skin cancer, denies bleeding/changing moles, and denies a history of skin rash. Neurologic: The patient denies a history of epilepsy/convulsions, denies headaches, denies head/spinal injuries, and denies stroke/TIA. Psychiatric: The patient denies psychiatric medications, denies depression, and denies voices, denies substance abuse. Endocrine: The patient denies thyroid disorders, denies diabetes, and denies hormonal problems. Hematologic: The patient denies a history of bruising, denies bleeding, and NOTES anemia, denies blood clots. Infections: The patient denies a history of measles and mumps, denies rheumatic fever, and denies sexually transmitted diseases. Musculoskeletal: The patient denies back pain/injury, denies back problems, denies sciatica, denies knee/foot trouble, NOTES arthritis, or denies gout. When was patient's last Mammogram screening? N/A Last Colonoscopy: 2021 Marilin Melvin LPN I have confirmed and edited as necessary, the PFSH and ROS obtained by others. Derrek Baker PA-C PHYSICAL EXAMINATION: General: The patient is 67 year old male, well nourished, well hydrated in no acute distress. The patient is oriented to time, place, and person. VITALS: Blood pressure 116/72, pulse 101, temperature 36.3 C (97.4 F), height 170.2 cm (5' 7), weight 69.2 kg (152 lb 9.6 oz), SpO2 100 %. Body mass index is 23.9 kg/m . HEENT: exam deferred Respiratory: exam deferred Cardiac: exam deferred. Extremities: exam deferred Other: Perianal examination performed with hand alterations tailor present. +external hemorrhoids and small perianal cyst on left, non-tender to palpation. No breakdown or abnormality of overlying skin LABORATORY VALUES: As Noted RADIOLOGIC STUDIES: As Noted Assessment IMPRESSION: external hemorrhoids, small perianal cyst vs chronic thrombosed hemorrhoid-currently asymptomatic and decreasing in size per patient PLAN: Findings reviewed with Dr. Al, who also participated in development of the following plan -Continue Anusol cream for an additional week -Recommend fiber supplement, plenty of fluids, keep bowel movements soft and regular -Follow up if lump enlarges or becomes tender to discuss office procedure at that time for cyst Patient verbalized understanding of all above and agreed with the plan. Diagnoses: (K64.9) Hemorrhoids, unspecified hemorrhoid type (primary encounter diagnosis) (K62.89) Perianal cyst Consultation requested by Dr. Ocampo for an opinion regarding hemorrhoid. My final recommendations will be communicated back to the requesting physician by way of shared Medical record or letter to requesting physician via US mail. Derrek Baker PA-C documented in this encounter [facility] 11-27-2022 Instructions Richie Dejesus MD - 11/27/2022 9:48 AM EDT Patient instructions: Avoid sun exposure Recommend protection with broad band UVA/UVB sunscreen spf 30+ daily Recommend UV protective clothing/hats Oral photoprotective antioxidants discussed if applicable ([employer]) Avoid tanning and tanning bed use Recommend UV protective sunglasses Use sunscreen on lips and ears Follow up as directed AFTERCARE CRYOTHERAPY The skin s response to cryosurgery (freezing) can be mild to more severe, depending on the depth of the freeze and location of the area treated. You may have minimal redness and swelling with little discomfort or significant discoloration and blistering with considerable discomfort. A burning sensation in the skin may last from several minutes to several hours after the procedure. Follow these instructions when caring for an area treated by cryosurgery. MINOR RESPONSE 1. Keep the area clean and dry for 24 hours. After 24 hours, the area may be washed gently with soap and water. 2. The area may sting or burn for a short time after treatment. 3. The treated area will be red in color at first then turn brown and flaky as it heals and the upper layer of skin sloughs off. 4. Gently cleanse the area with Q-tips dipped in plain warm water. Pat dry and apply a thin film of vaseline. Do this at least once a day to prevent infection. MAJOR REPSONSE 1. Follow instructions as stated above for minor response. 2. The area may sting and burn for several hours after treatment. 3. To relieve throbbing and pain, elevate the treatment area. 4. Tylenol (acetaminophen) may be taken every 3 to 4 hours for discomfort. 5. A blister will form in the area of freezing. It may be filled with clear fluid or blood. This response is not unusual. 6. Do not break the blister unless it becomes uncomfortable. You may puncture the blister with a sterile needle or pin to remove the fluid. Leave the skin intact. 7. Cleanse twice a day with plain warm water and apply Vaseline to prevent infection and a thick scab from forming. 8. All treated areas usually heal with 3 to 4 weeks. documented in this encounter [facility] 11-27-2022 History of Present illness Narrative CHIEF COMPLAINT: Skin check Last Dermatology Visit: [facility] - 05/17/22 REFERRAL: No referring provider defined for this encounter. RELEVANT DERMATOLOGY HISTORY: Personal Hx of skin cancer: ~ basal cell CA - 11/07/20, Mid Chest - ED&C ~ squamous cell CA - 16, Left Frontal Scalp - Mohs Personal Hx of atypical moles: no Family Hx of malignant melanoma: no Antibiotics before dental or other procedures: no Artificial joints: no Pacemaker: no Anticoagulants: no DERMATOLOGY PROGRESS NOTE HISTORY: Luther Castillo is a 67 year old male who presents with CC/HPI: Chief Complaint Skin check Location All over body Duration years Timing constant Severity mild Quality As above Modifying Factors: The patient does not have any specific concerns today. 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 Vasovagal reaction 10/09/2016 ACTIVE PROBLEM LIST Allergic Rhinitis, Cause Unspecified ACTINIC KERATOSES (Premalignant AK's) Microcytic Anemia Acute Gastritis Without Mention of Hemorrhage Benign Neoplasm of Rectum and Anal Canal Internal Hemorrhoids Without Mention of Complication Actinic Skin Damage Solar Lentigines Other Seborrheic Dermatitis Spinal Stenosis of Lumbar Region Lumbar Disc Herniation With Radiculopathy Lumbosacral Neuritis Lumbar Degenerative Disc Disease Osteoarthritis of Spine With Radiculopathy, Lumbar Region Biceps Tendonitis On Right Impingement Syndrome of Right Shoulder Biceps Tendinitis of Right Shoulder Chronic Pain in Right Shoulder Vasovagal Reaction Gastroesophageal Reflux Disease With Esophagitis Shoulder Impingement Syndrome, Right Elevated Prostate Specific Antigen (Psa) Hypertrophy of Prostate With Urinary Obstruction Family History of Malignant Neoplasm of Prostate 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) Malignant Neoplasm Metastatic to Bone (Hcc) Prostate Cancer (Hcc) PAST SURGICAL HISTORY Procedure Laterality Date COLONOSCOPY 02/27/2022 COLONOSCOPY FLX DX W/COLLJ SPEC WHEN PFRMD 10/2006 Colonoscopy COLONOSCOPY FLX DX W/COLLJ SPEC WHEN PFRMD 03/06/2012 Colonoscopy COLONOSCOPY FLX DX W/COLLJ SPEC WHEN PFRMD 02/10/2017 5 year repeat DIAGNOSTIC ARTHROSCOPY SHOULDER +- SYNOVIAL BX Right 10/11/2016 Right shoulder arthroscopic rotator cuff debridement, biceps tenotomy EGD 02/27/2022 ESOPHAGOGASTRODUODENOSCOPY TRANSORAL DIAGNOSTIC 03/10/2008 EGD ESOPHAGOGASTRODUODENOSCOPY TRANSORAL DIAGNOSTIC 02/26/2016 EGD FRACTURE SURGERY PAST SURGICAL HISTORY OF right wrist surgery PAST SURGICAL HISTORY OF 10/05/2002 right carpal tunnel PAST SURGICAL HISTORY OF 10/19/2002 left carpal tunnel RECONSTRUCTION ROTATOR CUFF AVULSION CHRONIC Right 10/11/2016 Right shoulder subacromial decompression TONSILLECTOMY HX TONSILLECTOMY PRIMARY/SECONDARY <AGE 10 Tonsillectomy MEDICATIONS: Current Outpatient Medications Medication Sig predniSONE (DELTASONE) 5 mg tablet Take 1 tablet by mouth twice daily. tamsulosin (FLOMAX) 0.4 mg TAKE 1 CAPSULE BY MOUTH EVERY DAY abiraterone 250 mg tablet TAKE 4 TABLETS (1,000MG) BY MOUTH ONCE DAILY ON AN EMPTY STOMACH 1 HOUR BEFORE OR 2 HOURS AFTER A MEAL cimetidine (TAGAMET) 200 mg tablet Take 200 mg by mouth twice daily. calcium carbonate/vitamin D3 (CALCIUM + D ORAL) Take 1 tablet by mouth twice daily. leuprolide acetate (ELIGARD SUBCUTANEOUS) Inject subcutaneously once every 6 months. denosumab (XGEVA SUBCUTANEOUS) Inject subcutaneously once every month. iv contrast (will be provided with radiology test) MRI Prostate Inject, intravenously, once for 1 dose. No IV access, insert saline lock prior to the beginning of sedation, infusion, injection of imaging exam. Discontinue saline lock post exam. If Pt. has a central line or IVAD, may access for administration according to line specific nursing protocol. Once exam is complete flush line and de-access according to line specific nursing protocol in the MR contrast administration guidelines link. (Patient not taking: Reported on 10/29/2022) Current Facility-Administered Medications Medication Dose Route Frequency denosumab 120 mg injection (XGEVA) 120 mg SUBCUTANEOUS q 1 MONTH ALLERGIES: reviewed Envirornmental [Other] OCCUPATION: Retired REVIEW OF SYSTEMS:No fever, chills, night sweats or changes in weight. No dyspnea, chest pain, abdominal pain, dysuria. All other review of systems is negative FAMILY MEDICAL HISTORY: FAMILY HISTORY Problem Relation Age of Onset Arthritis Mother Prostate Cancer Father Dx late 70s/80s, metastatic Colon Cancer Sister Dx late 50s None Sister Heart Attack Maternal Grandfather Prostate Cancer Paternal Uncle Metastatic Prostate Cancer Paternal cousin Two paternal 1st cousins (brothers to each other), sons of the uncle with cancer SOCIAL HISTORY: Social History Tobacco Use Smoking status: Former Packs/day: 0.25 Years: 2.50 Additional pack years: 0.00 Total pack years: 0.63 Types: Cigarettes Quit date: 07/13/1973 Years since quittin.4 Smokeless tobacco: Never Vaping Use Vaping Use: Never used Substance Use Topics Alcohol use: Yes Alcohol/week: 15.0 standard drinks of alcohol Types: 6 Cans of Beer (12oz) per week Comment: occasionally Drug use: No PHYSICAL EXAMINATION: GENERAL: Patient is a well appearing, well nourished, and pleasant, male alert and oriented, NAD. SKIN: A full skin exam was performed including the scalp, face, lips, neck, chest, abdomen, back, buttocks, arms and legs. Brown waxy warty stuck on papules on trunk and extremities Cabrera red vascular papules on trunk Light brown macules in sun distribution on upper body Multiple symmetric pigmented macules with benign features on trunk extremities -Erythematous scaly macule(s) with gritty scale on right dorsal forearm (2) No recurrence on previous skin cancer sites Purpuric patches on bilateral dorsal forearms ASSESSMENT/PLAN: 1. Seborrheic keratosis - ICD9: 702.19, ICD10: L82.1 (primary diagnosis) -dx discussed, observe 2. 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 Lentigines - ICD9: 709.09, ICD10: L81.4 -Sun protection 4. Multiple benign nevi - ICD9: 216.9, ICD10: D22.9 -Sun protection and monitoring 5. Actinic keratosis - ICD9: 702.0, ICD10: L57.0 -Diagnosis treatment options discussed -Freezing today as below 6. Personal history of skin cancer - ICD9: V10.83, ICD10: Z85.828 - Mole/melanoma/dysplastic nevus/skin cancer education given - Recommend sun protection with broad spectrum UVA UVB coverage, spf 30+ every day, reapply every 2-3 hours, use higher SPF 50+ for extended sun activities - Monitoring 7. 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 I verify that I personally obtained Luther Castillo's consent. Richie Dejesus MD Dept of DERMATOLOGY Cryosurgery performed with Liquid Nitrogen via via cryostat spray gun to Actinic Keratosis. 2 lesion(s) treated on bilateral dorsal forearms. Patient tolerated treatment well. Wound care instructions provided, pt verbalizes understanding. Richie Dejesus MD RTC The documentation for this note was partially completed by Priya Moe LPN acting as scribe for Richie Dejesus MD. November 27, 2022 7:40 AM. I agree with the Chief Complaint, ROS, and Past Histories independently gathered by the clinical production support engineer and the remaining scribed note accurately describes my personal service to the patient. Priya Dejesus MD Return to clinic yearly for skin check documented in this encounter [facility] 11-21-2022 Nurse Note Pt here for injection of Xgeva. Given sq in right arm. Pt tolerated well. documented in this encounter [facility] 11-20-2022 Miscellaneous Notes The following approved medication requests have been transmitted electronically. Requested Prescriptions Signed Prescriptions Disp Refills predniSONE (DELTASONE) 5 mg tablet 60 tablet 2 Sig: Take 1 tablet by mouth twice daily. Authorizing Provider: SANJEEV ARANDA Refused Prescriptions Disp Refills predniSONE (DELTASONE) 5 mg tablet [Pharmacy Med Name: PREDNISONE 5MG TABLETS] 60 tablet 2 Sig: TAKE 1 TABLET BY MOUTH TWICE DAILY Refused By: CATHERINE PERAZA Reason for Refusal: A Refill not appropriate Sanjeev Aranda APRN.CNP Doesn't look like Dr. Ocampo fill this medication. Will route to ordering provider. Catherine Peraza APRN.CNP Patient has been identified by name and date of : Yes, Provider Dr. Ocampo Date 11/20/22 Time 9:17 am Pharmacy phones for refill(s): Requested Prescriptions Pending Prescriptions Disp Refills predniSONE (DELTASONE) 5 mg tablet [Pharmacy Med Name: PREDNISONE 5MG TABLETS] 60 tablet 2 Sig: TAKE 1 TABLET BY MOUTH TWICE DAILY Date of last office visit in primary care: 10/30/22 next apt01/30/23 Last 2 Encounter Wt Readings: Date: Wt: 11/19/2022 69.2 kg (152 lb 9.6 oz) 10/30/2022 69.4 kg (153 lb) Previous labs/tests for medication: Not applicable Thank you. Sarah Lemus LPN documented in this encounter [facility] 11-19-2022 Instructions Derrek Baker PA-C - 11/19/2022 2:01 PM EDT -Continue Anusol cream for an additional week -Recommend fiber supplement, plenty of fluids, keep bowel movements soft and regular -Follow up if lump enlarges or becomes tender documented in this encounter [facility] 11-19-2022 Nurse Note REVIEW OF SYSTEMS: General: The patient denies fatigue, denies weight loss, denies weight gain, denies feeling hot, and denies feelings of cold. Eyes: The patient denies glaucoma, denies eye injury/surgery, does not wear glasses or contacts. Ear/Nose/Throat: The patient denies allergies, NOTES hayfever, denies ear infections, and denies bloody noses. Cardiovascular: The patient denies chest pain, denies heart disease, denies high blood pressure,denies cardiac stent, denies prior heart attack, denies irregular heart beat, denies high cholesterol, denies poor circulation, denies heart failure, other cardiac issues, denies claudication, denies cold feet, denies peripheral arterial stent. Respiratory: The patient denies tuberculosis, denies pneumonia, denies frequent cough, denies pulmonary embolism, denies shortness of breath, and denies coughing up blood. Gastrointestinal: The patient denies difficulty swallowing, NOTES acid reflux, denies ulcers, denies vomiting, denies jaundice/hepatitis, denies gallbladder problems, denies black or tarry stools, NOTES hemorrhoids, denies bleeding from rectum, denies diverticulitis, denies constipation, denies diarrhea, denies loss of stool control, and denies hernias. Kidney/Bladder: The patient denies kidney stones, denies urine infections, and denies bloody urine. Skin: The patient NOTES a history of skin cancer, denies bleeding/changing moles, and denies a history of skin rash. Neurologic: The patient denies a history of epilepsy/convulsions, denies headaches, denies head/spinal injuries, and denies stroke/TIA. Psychiatric: The patient denies psychiatric medications, denies depression, and denies voices, denies substance abuse. Endocrine: The patient denies thyroid disorders, denies diabetes, and denies hormonal problems. Hematologic: The patient denies a history of bruising, denies bleeding, and NOTES anemia, denies blood clots. Infections: The patient denies a history of measles and mumps, denies rheumatic fever, and denies sexually transmitted diseases. Musculoskeletal: The patient denies back pain/injury, denies back problems, denies sciatica, denies knee/foot trouble, NOTES arthritis, or denies gout. When was patient's last Mammogram screening? N/A Last Colonoscopy: 2021 Marilin Melvin LPN documented in this encounter [facility] 10-24-2022 Nurse Note Pt here for injection of xgeva. Given sq in left arm. Pt tolerated well. Lorin Zhang LPN documented in this encounter [facility] 10-14-2022 Nurse Note Pt here for injection of Lupron. Given IM in right buttocks. Pt tolerated well. Lorin Zhang LPN documented in this encounter [facility] 09-30-2022 Miscellaneous Notes Imm updated, pt made aware. Lexie Gambino Ma documented in this encounter [facility] 09-26-2022 History of Present illness Narrative Pt here for injection of xgeva. Given sq in right arm. Pt tolerated well. Lorin Zhang LPN documented in this encounter [facility] 09-23-2022 Hospital Discharge instructions Patient Education 09/23/2022 15:26:13 Laceration, Hand: All Closures Hand Laceration: All Closures A laceration is a cut through the skin. Deep cuts usually require stitches. Minor cuts may be closed with surgical tape or skin adhesive. X-rays may be done if something may have entered the skin through the cut, such as broken glass. You may also be given a tetanus shot if you are not up to date on this vaccination and the object that cut you may carry tetanus. Home care Your healthcare provider may prescribe an antibiotic. This is to help prevent infection. Follow all instructions for taking this medicine. Take the medicine every day until it is gone or you are told to stop. You should not have any left over. The healthcare provider may prescribe medicines for pain. Follow instructions for taking them. Follow the healthcare provider s instructions on how to care for the cut. Keep the wound clean and dry. Don't get the wound wet until you are told it is OK to do so. If the bandage gets wet, remove it. Gently pat the wound dry with a clean cloth. Then put on a clean, dry bandage. To help prevent infection, wash your hands with soap and water before and after caring for the wound. Caring for stiches: Once you no longer need to keep the stitches dry, clean the wound daily. First, remove the bandage. Then wash the area gently with soap and warm water, or as directed by the healthcare provider. Use a wet cotton swab to loosen and remove any blood or crust that forms. After cleaning, apply a thin layer of antibiotic ointment if advised. Then put on a new bandage unless you are told not to. Caring for skin glue: Don t put apply liquid, ointment, or cream on the wound while the glue is in place. Avoid activities that cause heavy sweating. Protect the wound from sunlight. Don't scratch, rub, or pick at the adhesive film. Don't place tape directly over the film. The glue should peel off within 5 to 10 days. Caring for surgical tape: Keep the area dry. If it gets wet, blot it dry with a clean towel. Surgical tape usually falls off within 7 to 10 days. If it has not fallen off after 10 days, you can take it off yourself. Put mineral oil or petroleum jelly on a cotton ball and gently rub the tape until it is removed. Once you can get the wound wet, you may shower as usual, but don't soak the wound in water. This means no tub baths or swimming. Even with proper treatment, a wound infection may sometimes occur. Check the wound daily for signs of infection listed below. Follow-up care Follow up with your healthcare provider, or as advised. If you have stitches, be sure to return as directed to have them removed. When to seek medical advice Call your healthcare provider right away if any of these occur: Wound bleeding not controlled by direct pressure Signs of infection, including increasing pain in the wound, increasing wound redness or swelling, or pus or bad odor coming from the wound Fever of 100.4 F (38. C) o higher, or as directed by your healthcare provider Stitches come apart or fall out or surgical tape falls off before 7 days Wound edges reopen Wound changes colors Numbness or weakness in the affected hand Decreased movement of the hand [id number] [employer]. [address] [place] [address]. All rights reserved. This information is not intended as a substitute for professional medical care. Always follow your healthcare professional's instructions. Follow Up Care 09/23/2022 13:48:52 With:ARSALAN OCAMPO MD Address: [address] [place] [id number]- When:2-4 days [facility] 09-23-2022 Note Discharge Instructions Thank you for allowing [facility] to assist you with your healthcare needs. The following is important discharge information regarding your hospital visit. Diagnosis from Today's Visit Finger laceration What to Do Next Instructions from Your Care Team Follow-up in 10 days for suture removal. Keep it clean and dry. No qualifying data available. Post Acute Orders No qualifying data available. You Need to Schedule the Following Appointments Follow Up with ARSALAN OCAMPO MD When Within 2-4 days Where: [address] [place] [id number]- Allergies NKA Immunizations This Visit Given Vaccine Datetetanus/diphth/pertuss (Tdap) adult/adol 09/23/2022 Medications Please ask your primary doctor or pharmacist before taking any other medication not listed, including over the counter drugs, herbal medications, vitamins and or supplements as they may interact with your home medications. What How Much When Instructions Last Dose Unchanged abiraterone (abiraterone 250 mg oral tablet) 4 tab(s) by mouth Once a day Unchanged predniSONE (Deltasone 5 mg tab (TAPER)) 5 Milligram by mouth Two (2) times a day Unchanged tamsulosin (tamsulosin 0.4 mg oral capsule) 1 cap by mouth Once a day Please take this list to your next doctor s visit. Bring all medications you take, including over the counter medications, herbals and other supplements with you to your doctor s visit. Patients and families are reminded to discard old lists and to update any records with all medication providers or retail pharmacies. Education Materials Hand Laceration: All Closures A laceration is a cut through the skin. Deep cuts usually require stitches. Minor cuts may be closed with surgical tape or skin adhesive. X-rays may be done if something may have entered the skin through the cut, such as broken glass. You may also be given a tetanus shot if you are not up to date on this vaccination and the object that cut you may carry tetanus. Home care Your healthcare provider may prescribe an antibiotic. This is to help prevent infection. Follow all instructions for taking this medicine. Take the medicine every day until it is gone or you are told to stop. You should not have any left over. The healthcare provider may prescribe medicines for pain. Follow instructions for taking them. Follow the healthcare provider s instructions on how to care for the cut. Keep the wound clean and dry. Don't get the wound wet until you are told it is OK to do so. If the bandage gets wet, remove it. Gently pat the wound dry with a clean cloth. Then put on a clean, dry bandage. To help prevent infection, wash your hands with soap and water before and after caring for the wound. Caring for stiches: Once you no longer need to keep the stitches dry, clean the wound daily. First, remove the bandage. Then wash the area gently with soap and warm water, or as directed by the healthcare provider. Use a wet cotton swab to loosen and remove any blood or crust that forms. After cleaning, apply a thin layer of antibiotic ointment if advised. Then put on a new bandage unless you are told not to. Caring for skin glue: Don t put apply liquid, ointment, or cream on the wound while the glue is in place. Avoid activities that cause heavy sweating. Protect the wound from sunlight. Don't scratch, rub, or pick at the adhesive film. Don't place tape directly over the film. The glue should peel off within 5 to 10 days. Caring for surgical tape: Keep the area dry. If it gets wet, blot it dry with a clean towel. Surgical tape usually falls off within 7 to 10 days. If it has not fallen off after 10 days, you can take it off yourself. Put mineral oil or petroleum jelly on a cotton ball and gently rub the tape until it is removed. Once you can get the wound wet, you may shower as usual, but don't soak the wound in water. This means no tub baths or swimming. Even with proper treatment, a wound infection may sometimes occur. Check the wound daily for signs of infection listed below. Follow-up care Follow up with your healthcare provider, or as advised. If you have stitches, be sure to return as directed to have them removed. When to seek medical advice Call your healthcare provider right away if any of these occur: Wound bleeding not controlled by direct pressure Signs of infection, including increasing pain in the wound, increasing wound redness or swelling, or pus or bad odor coming from the wound Fever of 100.4 F (38. C) o higher, or as directed by your healthcare provider Stitches come apart or fall out or surgical tape falls off before 7 days Wound edges reopen Wound changes colors Numbness or weakness in the affected hand Decreased movement of the hand [phone] [employer]. [address] [place] [address]. All rights reserved. This information is not intended as a substitute for professional medical care. Always follow your healthcare professional's instructions. Additional Information VACCINATE! IT SAVES LIVES! Members of the community who have not yet received the COVID-19 vaccine and would like to receive it can visit one of [facility] vaccine clinics. There are many vaccine clinic locations within the [facility]. For locations and available times, please visit www.gettheshot.coronavirus.[place].gov/. It is important to note that some COVID mobile vaccine clinics are held outdoors and may be canceled in rainy or stormy conditions. To learn more about pediatric vaccinations (ages 5-11), we invite you to visit the [facility] webpage. [email or web address]/pages/[email or web address]-Bdcqs-Hahzvcicqfo-Frequently-[email or web address] -Questions.html To learn more about the COVID-19 vaccine, we invite you to visit the CDC website for a list of frequently asked questions. https://www.cdc.gov/coronavirus/2019-n cov/vaccines/faq.html [facility] Patient Portal Access Instructions: Stay connected with your healthcare team and access your personal medical information anytime with the [facility] Patient Portal. If you would like a full copy of your medical records please contact the [facility] Medical Records Department Friday through Friday between 8a.m. and 4:30p.m. Please follow the directions below to access the portal: 1.Access the email account you provided upon registration to the [facility].2.Look for an invitation email from [facility].3.Open the email and access the invitation link: Accept Invitation to [facility] [employer] [facility]4.Fill in the required saavge to create your account. Sign into [email or web address] with your username and password that you created in the above steps to stay up to date. You can then view a summary of results, a summary of your visits, and the ability to download your summaries to your computer or send the information securely to a physician. Remember that your healthcare information is confidential, so carefully consider who you will allow to register on the [facility] Patient Portal for access to your information. You can also access the [facility] [employer] [facility] Patient Portal on the [employer]. Simply click on Health Records under Health Data and then click on the [employer] logo. HOW TO SAFELY DISPOSE OF PRESCRIPTION MEDICATIONS Please use one of the following methods to safely dispose of your unused medications. 1.Use a drug disposal kit: the drug disposal pouch allows you to safely discard your old and unused drugs. Ask your nurse to give you one when you are discharged.2.Visit a local take-back location: Many local pharmacies and police departments have programs that collect old and unwanted prescription drugs. Call your local pharmacy or go to http://bit.[employer]/9V4Wy7v to find one close to you.3.Make use of household items: Use cat litter or old coffee grounds to dispose medications if other options are not available. Mix your drugs with these household products, seal them in an airtight container and throw it into the garbage. Call [facility]: [phone] to be sure your drugs can be disposed of in this way. Some medicines may require a different approach.4.Never flush your medications down the toilet. IF YOU HAVE BEEN PRESCRIBED AN OPIOIDS FOR PAIN If you have been prescribed an opioid (such as hydrocodone, oxycodone or morphine), it is critical to understand the possible side effects and risks of opioid pain medications. Even when taken as directed, opioids can have several side effects including: Tolerance, meaning you might need to take more of a medication for the same pain relief. Nausea, vomiting and/or constipation. Sleepiness, dizziness, dry mouth, confusion, depression or itching. Physical dependence, meaning you have withdrawal symptoms when a medication is stopped ? this can develop within a few days. KNOW YOUR RESPONSIBILITIES It is important to know exactly how much and how often to take the opioid pain medications you are prescribed. Never take opioids in higher amounts or more often than prescribed. Do not combine opioids with alcohol or other drugs that cause drowsiness, such as benzodiazepines, also known as benzos, including diazepam and alprazolam, muscle relaxants or sleep aids. Never sell or share prescription opioids. This is illegal. Store opioids in a secure place and out of reach of others (including children, family, friends and visitors). The last page(s) of this document has been signed and retained as a CHART COPY Signatures Patient Education Materials Annelise, Hand: All Closures Medication Leaflets My discharge plan and instructions have been reviewed and explained to me and I,LUTHER CASTILLO understand my current condition and have read and understand these discharge instructions. I have received a written copy of the plan/instructions. If I have questions, I am aware that I should contact my doctor. 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 HISTORY: ORDERING SYSTEM PROVIDED HISTORY: Reason for Exam: Pain. Caught distal 3rd digit in door today, has small laceration. FINDINGS: No acute fracture or dislocation. No periosteal reaction or osseous erosions. Thin linear radiopaque foreign body seen on PA and oblique images measures up to 0.2 cm the ulnar aspect of the 1st interphalangeal joint. Asymmetric areas of joint space loss seen in the distal interphalangeal joints and metacarpophalangeal joints. There may be small marginal erosions scattered throughout the visualized digits. Linear soft tissue defect seen at the palmar aspect of the distal 3rd digit. IMPRESSION: No acute osseous process. 0.2 cm linear radiopaque foreign body at the ulnar aspect of the 1st interphalangeal joint. Recommend correlate with physical exam findings. Linear soft tissue defect seen at the palmar aspect of the distal 3rd digit. Degenerative changes, likely with superimposed synovial inflammatory arthropathy.. I have personally reviewed the images of this examination and agree with the resident's findings and interpretation. Interpreted by: David Kapoor MD Preliminary Report By: Radha Alicia Electronically signed By David Kapoor MD Dictated Date: 09/23/2022 3:09:49 PM Prelim Date: 09/23/2022 3:18:15 PM Sign Date: 09/23/2022 3:18:15 PM Ordering Provider: [facility] 09-23-2022 Note ORIGINAL EXAMINATION: THREE XRAY VIEWS OF THE RIGHT FINGERS09/23/2022 3:04 pm COMPARISON: None. HISTORY: ORDERING SYSTEM PROVIDED HISTORY: Reason for Exam: Pain. Caught distal 3rd digit in door today, has small laceration. FINDINGS: No acute fracture or dislocation. No periosteal reaction or osseous erosions. Thin linear radiopaque foreign body seen on PA and oblique images measures up to 0.2 cm the ulnar aspect of the 1st interphalangeal joint. Asymmetric areas of joint space loss seen in the distal interphalangeal joints and metacarpophalangeal joints. There may be small marginal erosions scattered throughout the visualized digits. Linear soft tissue defect seen at the palmar aspect of the distal 3rd digit. IMPRESSION: No acute osseous process. 0.2 cm linear radiopaque foreign body at the ulnar aspect of the 1st interphalangeal joint. Recommend correlate with physical exam findings. Linear soft tissue defect seen at the palmar aspect of the distal 3rd digit. Degenerative changes, likely with superimposed synovial inflammatory arthropathy.. I have personally reviewed the images of this examination and agree with the resident's findings and interpretation. Interpreted by: David Kapoor MD Preliminary Report By: Radha Alicia Electronically signed By David Kapoor MD Dictated Date: 09/23/2022 3:09:49 PM Prelim Date: 09/23/2022 3:18:15 PM Sign Date: 09/23/2022 3:18:15 PM Ordering Provider: ALEXIS HEATH [facility] 08-19-2022 Miscellaneous Notes The below PSA has been added in 3 months. All others scheduling was done on Friday at check-out Nicole Saenz Pss Please add PSA every three months. See AVS from FridayAugust 16. Thank you. Sanjeev Aranda APRN.JOI documented in this encounter [facility] 08-16-2022 History of Present illness Narrative Chief Complaint Patient presents with: Established Patient HPI: Luther Castillo is a 67 year old male who presents here today for follow up prostate cancer/anemia. Per Dr. Clemente's previous note: H/o refractory anemia who present with an elevation PSA. Since a year ago his PSA has increased from 2 to 29. He has no urinary symptoms including hematuria or dysuria. He has no fever or chills. He saw urology, Dr. Varghese on April 10 and subsequent prostate biopsy on April 19. MRI prostate showed cancer of prostate with capsular invasion some likely metastases to the pelvic bone region. His bone scan subsequently confirmed metastatic disease. Biopsy of prostate confirmed [place] 7, prostate cancer. He started androgen deprivation therapy with leuprolidse acetate 45 mg & denosumab 120 mg monthly on 04/26/2021 for metastatic (M1) prostate cancer. Current treatment: Zytiga and prednisone Leuprolidse acetate 45 mg every 6 months & denosumab 120 mg monthly No new concerns today. Pt. here today with family member. Appetite:Good. Energy level:Pretty low. Denies fevers or recent illness. Resp:denies cough or sob Cardiac:denies chest pain/palpitations GI:denies abd pain, n/v, moving bowels regularly :denies dysuria/hematuria Extrem:denies pain Endo:+hot flashes I do sometimes. Neuro:denies symptoms of neuropathy Skin:denies rashes Heme:denies bleeding The ROS is otherwise negative. Past medical history, appointments, medications, allergies reviewed. No changes. EXAM: BP 104/76 Pulse 84 Temp 36.2 C (97.2 F) (Temporal) Wt 69.6 kg (153 lb 8 oz) BMI 24.04 kg/m APPEARANCE Well appearing, alert, in no acute distress, well-hydrated, well nourished. HEART RRR with normal S1 and S2, no murmurs LUNG clear to auscultation LYMPH NODES No cervical lymphadenopathy, No supraclavicular lymphadenopathy, and No axillary lymphadenopathy. ABDOMEN bowel sounds normoactive, soft, non-tender EXTREMITIES No edema NEURO Awake, alert and oriented x 3, Normal gait, and No involuntary motions. SKIN Skin color, texture, turgor normal, no suspicious rashes or lesions LABS: Component Latest Ref Rng & Units 11/20/2021 02/12/2022 08/07/2022 WBC 3.70 - 11.00 k/uL 6.06 5.73 5.29 RBC 4.20 - 6.00 m/uL 3.91 (L) 3.97 (L) 3.95 (L) Hemoglobin 13.0 - 17.0 g/dL 9.9 (L) 10.1 (L) 10.2 (L) Hematocrit 39.0 - 51.0 % 31.4 (L) 31.7 (L) 31.8 (L) MCV 80.0 - 100.0 fL 80.3 79.8 (L) 80.5 MCH 26.0 - 34.0 pg 25.3 (L) 25.4 (L) 25.8 (L) MCHC 30.5 - 36.0 g/dL 31.5 31.9 32.1 RDW-CV 11.5 - 15.0 % 19.6 (H) 19.3 (H) 19.7 (H) Platelet Count 150 - 400 k/uL 159 174 169 MPV 9.0 - 12.7 fL 8.2 (L) 8.5 (L) 8.3 (L) Neut% % 71.1 50.5 45.7 Abs Neut (ANC) 1.45 - 7.50 k/uL 4.31 2.89 2.42 Lymph% % 24.1 38.7 42.7 Abs Lymph 1.00 - 4.00 k/uL 1.46 2.22 2.26 Ferry% % 3.8 8.2 8.7 Abs Ferry <0.87 k/uL 0.23 0.47 0.46 Eosin% % 0.5 1.9 2.5 Abs Eosin <0.46 k/uL 0.03 0.11 0.13 Baso% % 0.3 0.5 0.4 Abs Baso <0.11 k/uL <0.03 0.03 <0.03 Immature Gran % % 0.2 0.2 0.0 IMMATURE GRANS (ABS) <0.10 k/uL <0.03 <0.03 <0.03 NRBC /100 WBC 0.0 0.0 0.0 Absolute nRBC <0.01 k/uL <0.01 <0.01 <0.01 DTYPE Auto Auto Auto Component Latest Ref Rng & Units 11/20/2021 02/12/2022 08/07/2022 Protein, Total 6.3 - 8.0 g/dL 6.9 6.9 6.9 Albumin 3.9 - 4.9 g/dL 4.5 4.4 4.5 Calcium 8.5 - 10.2 mg/dL 9.0 9.1 9.1 Bilirubin, Total 0.2 - 1.3 mg/dL 0.7 0.6 0.6 Alkaline Phosphatase 38 - 113 U/L 74 78 72 AST 14 - 40 U/L 25 22 23 ALT 10 - 54 U/L 24 20 25 Glucose 74 - 99 mg/dL 110 (H) 92 95 BUN 9 - 24 mg/dL 18 22 20 Creatinine 0.73 - 1.22 mg/dL 1.05 0.98 1.05 Sodium 136 - 144 mmol/L 138 139 136 Potassium 3.7 - 5.1 mmol/L 4.0 4.1 3.7 Chloride 97 - 105 mmol/L 101 102 99 CO2 22 - 30 mmol/L 25 28 30 Anion Gap 9 - 18 mmol/L 12 9 7 (L) eGFR >=60 mL/min/1.73m 77 84 77 Component Latest Ref Rng & Units 08/24/2021 11/20/2021 02/12/2022 08/07/2022 PSA <2.60 ng/mL 0.07 0.02 <0.02 <0.02 ASSESSMENT/PLAN: 1. Prostate cancer metastatic to bone (HCC) - ICD9: 185, 198.5, ICD10: C61, C79.51 (primary diagnosis) 2. 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 - No new concerning findings on exam. - Tolerating zytiga/pred/eliguard/xgeva well overall. - Reviewed labs with pt. and spouse. - Continue Zytiga and prednisone. - Monitor PSA. - Please reschedule monthly xgeva/eliguard every 6 months to be done here in [place] (Has been getting them in [place]). - Follow up with Urology as scheduled. - Follow up with Dr. Herring in 6 months with CBC/CMP/PSA. - Pt. aware to call office with any questions/concerns. The patient indicates understanding of these issues and agrees with the plan. All documentation from previous visit of 02/14/22-Dr. Clemente was copied and pasted, documentation has been reviewed and edited as necessary for today's visit. Sanjeev Aranda APRN.JOI documented in this encounter [facility] 08-12-2022 Miscellaneous Notes Labs done 08/07/2022, appt. With Sanjeev 08/16 Patient has been identified by name and date of : Yes Requested Prescriptions Pending Prescriptions Disp Refills abiraterone 250 mg tablet 120 tablet 5 RX INSTRUCTIONS: Patient aware RX will be sent to pharmacy. No need to notify patient. Abigail Tyson LPN documented in this encounter [facility] 08-01-2022 Nurse Note The patient is here for an injection of Xgeva Dose: 120 mg Route: Subcutaneous Lot# [id number] Expiration date 06-04-2024 Given without incident. Site: right upper quadrant abdomen Dr. Mckeon present in clinic at time of injection. The date due for the next injection is 1 month Patient education was given by nurse. Stephanie Duron RN documented in this encounter [facility] 05-30-2022 Nurse Note The patient is here for an injection of Prolia Dose: 60mg/1ml Calcium, Total Date Value Ref Range Status 02/12/2022 9.1 8.5 - 10.2 mg/dL Final Last Office Visit was 04/26/2022 Route: Subcutaneous Given without incident Site: left arm Lot number [id number] Expiration Date 06/04/2024 Dr. mckeon present in clinic at time of injection The date due for the next injection is 1 month Luther Arthur RN 8:30 AM June 14, 2022 documented in this encounter [facility] 05-17-2022 Instructions Richie Dejesus MD - 05/17/2022 2:06 PM EST AFTERCARE CRYOTHERAPY The skin s response to cryosurgery (freezing) can be mild to more severe, depending on the depth of the freeze and location of the area treated. You may have minimal redness and swelling with little discomfort or significant discoloration and blistering with considerable discomfort. A burning sensation in the skin may last from several minutes to several hours after the procedure. Follow these instructions when caring for an area treated by cryosurgery. MINOR RESPONSE 1. Keep the area clean and dry for 24 hours. After 24 hours, the area may be washed gently with soap and water. 2. The area may sting or burn for a short time after treatment. 3. The treated area will be red in color at first then turn brown and flaky as it heals and the upper layer of skin sloughs off. 4. Gently cleanse the area with Q-tips dipped in plain warm water. Pat dry and apply a thin film of vaseline. Do this at least once a day to prevent infection. MAJOR REPSONSE 1. Follow instructions as stated above for minor response. 2. The area may sting and burn for several hours after treatment. 3. To relieve throbbing and pain, elevate the treatment area. 4. Tylenol (acetaminophen) may be taken every 3 to 4 hours for discomfort. 5. A blister will form in the area of freezing. It may be filled with clear fluid or blood. This response is not unusual. 6. Do not break the blister unless it becomes uncomfortable. You may puncture the blister with a sterile needle or pin to remove the fluid. Leave the skin intact. 7. Cleanse twice a day with plain warm water and apply Vaseline to prevent infection and a thick scab from forming. 8. All treated areas usually heal with 3 to 4 weeks. documented in this encounter [facility] 05-17-2022 History of Present illness Narrative Cryosurgery of non-malignant lesion(s) HPI: Patient is here for cryosurgery Patient is alert oriented 3 not in apparent distress Luther Castillo Medical Record: [id number] Date: 05/17/2022 Procedure: Cryosurgery The risks, benefits and anticipated outcomes of the procedure, the risks and benefits of the alternatives to the procedure and the roles and tasks of the personnel to be involved were discussed with the patient and the patient consents to the procedure and agrees to proceed. I verify that I personally obtained Luther Duganetler's consent. Richie Dejesus MD Dept of DERMATOLOGY Cryosurgery performed with Liquid Nitrogen via via cryostat spray gun to Actinic Keratosis. 2 lesion(s) treated L crown scalp. Patient tolerated treatment well. Wound care instructions provided, pt verbalizes understanding. Richie Dejesus MD RTC 6 months documented in this encounter [facility] 05-08-2022 Miscellaneous Notes Results left on patient voicemail. Luther Castillo's Multi-Cancer panel and Hereditary Myelodysplastic Syndrome/Leukemia Panel plus preliminary evidence genes through [employer] was negative for a pathogenic variant. 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 No changes are recommended to his management, based on this result. Please see [employer] message for further discussion. LIZANDRO La Licensed, Certified Genetic Counselor documented in this encounter [facility] 04-26-2022 Note HNO ID: [id number] Author: Sp Mckeon, DO Service: ? Author Type: Physician Type: Progress Notes Filed: 05/07/2022 2:46 PM Note Text: [facility] [place] [facility] LOCATION: [address] [place] [address] ESTABLISHED PATIENT PATIENT INFO: Luther Castillo 67 year old Chief Complaint: Metastatic Prostate Cancer HPI Here for 6 month f/u. No complaints. 67-year-old gentleman with history of refractory anemia who present with an elevation PSA. Since a year ago his PSA has increased from 2 to 29. He has no urinary symptoms including hematuria or dysuria. He has no fever or chills. Prostate biopsy on April 19. MRI prostate showed cancer of prostate with capsular invasion some likely metastases to the pelvic bone region. His bone scan subsequently confirmed metastatic disease. Biopsy of prostate confirmed [place] 7, prostate cancer. He started androgen deprivation therapy with leuprolidse acetate 45 mg AND denosumab 120 mg monthly on 04/26/2021 for metastatic (M1) prostate cancer. Current treatment: Zytiga and prednisone leuprolidse acetate 45 mg every 6 months AND denosumab 120 mg monthly Interim history: He is doing well with androgen ablation therapy with Zytiga and prednisone. Patient has no increased fatigue, bone pain or hot flashes since he started this treatment. He has no fever, chills or dysuria. He denied hematuria, polyuria or polydipsia. His blood sugar nonfasting was 120. He has no nausea, vomiting or diarrhea. No breast swelling or tenderness. He has mild arthritic pain. 1-Duration: 2021 2-Location: prostate 3-Severity: N/A 4-Quality: Not applicable 5-Context: N/A 6-Timing: N/A 7-Modifying factors: No treatment prior to referral 8-Associated signs AND symptoms: no additional symptoms No question data found. PATHOLOGY: FINAL DIAGNOSIS A. PROSTATE, BIOPSY, RIGHT BASE: Prostatic adenocarcinoma, [place] score 3+4=7 (Grade group 2), involving 60% of one core (8 mm tumor length). - Percentage of Rasehed pattern 4 = 20%. - Expansile cribriform morphology is present. B. PROSTATE, BIOPSY, RIGHT MID: Prostatic adenocarcinoma, [place] score 4+3=7 (Grade group 3), involving 90% of one core (10 mm tumor length). - Percentage of Rasheed pattern 4 = 90%. - Expansile cribriform morphology is present. C. PROSTATE, BIOPSY, RIGHT APEX: Prostatic adenocarcinoma, Rasheed score 3+4=7 (Grade group 2), involving 35% of one core (3 mm tumor length). - Percentage of Rasheed pattern 4 = 5%. - Cribriform morphology is absent. D. PROSTATE, BIOPSY, RIGHT LATERAL BASE: High-grade prostatic intraepithelial neoplasia. E. PROSTATE, BIOPSY, RIGHT LATERAL MID: Prostatic adenocarcinoma, [place] score 3+4=7 (Grade group 2), involving 85% of one core (10 mm tumor length). - Percentage of Rasheed pattern 4 = 10%. - Definitive cribriform morphology is absent. F. PROSTATE, BIOPSY, RIGHT LATERAL APEX: Prostatic adenocarcinoma, Rasheed score 3+4=7 (Grade group 2), involving 50% of one core (6.5 mm tumor length). - Percentage of [place] pattern 4 = 5%. - Cribriform morphology is absent. G. PROSTATE, BIOPSY, LEFT BASE: Prostatic adenocarcinoma, [place] score 3+3=6 (Grade group 1), involving 4% of one core (0.5 mm tumor length). Separate focus with atypical small acinar proliferation. H. PROSTATE, BIOPSY, LEFT MID: Benign prostatic tissue. I. PROSTATE, BIOPSY, LEFT APEX: Benign prostatic tissue. J. PROSTATE, BIOPSY, LEFT LATERAL BASE: Benign prostatic tissue. K. PROSTATE, BIOPSY, LEFT LATERAL MID: Benign prostatic tissue. L. PROSTATE, BIOPSY, LEFT LATERAL APEX: Benign prostatic tissue. Prostate Cancer Biopsy Summary Number of cores examined: 12 Number of cores positive: 6 Highest Grade Group: 3 Highest % of core involvement: 90% Cribriform pattern 4: Present Intraductal carcinoma: Absent LAB: WBC (k/uL) Date Value 02/12/2022 5.73 RBC (m/uL) Date Value 02/12/2022 3.97 (L) Hemoglobin (g/dL) Date Value 02/12/2022 10.1 (L) Hematocrit (%) Date Value 02/12/2022 31.7 (L) MCV (fL) Date Value 02/12/2022 79.8 (L) MCH (pg) Date Value 02/12/2022 25.4 (L) MCHC (g/dL) Date Value 02/12/2022 31.9 RDW-CV (%) Date Value 02/12/2022 19.3 (H) Platelet Count (k/uL) Date Value 02/12/2022 174 MPV (fL) Date Value 02/12/2022 8.5 (L) Neut% (%) Date Value 02/12/2022 50.5 Lymph% (%) Date Value 02/12/2022 38.7 Ferry% (%) Date Value 02/12/2022 8.2 Eosin% (%) Date Value 05/28/2021 1.5 Baso% (%) Date Value 02/12/2022 0.5 Abs Neut (k/uL) Date Value 02/12/2022 2.89 Abs Ferry (k/uL) Date Value 02/12/2022 0.47 Abs Eosin (k/uL) Date Value 02/12/2022 0.11 Abs Baso (k/uL) Date Value 02/12/2022 0.03 Creatinine Date Value Ref Range Status 02/12/2022 0.98 0.73 - 1.22 mg/dL Final 11/20/2021 1.05 0.73 - 1.22 mg/dL Final 08/24/2021 0.98 (more content not included)... [facility] 04-26-2022 History of Present illness Narrative Images from the original note were not included. [facility] [place] [facility] LOCATION: [address] [place] [address] ESTABLISHED PATIENT PATIENT INFO: Luther Castillo 67 year old Chief Complaint: Metastatic Prostate Cancer HPI Here for 6 month f/u. No complaints. 67-year-old gentleman with history of refractory anemia who present with an elevation PSA. Since a year ago his PSA has increased from 2 to 29. He has no urinary symptoms including hematuria or dysuria. He has no fever or chills. Prostate biopsy on April 19. MRI prostate showed cancer of prostate with capsular invasion some likely metastases to the pelvic bone region. His bone scan subsequently confirmed metastatic disease. Biopsy of prostate confirmed [place] 7, prostate cancer. He started androgen deprivation therapy with leuprolidse acetate 45 mg & denosumab 120 mg monthly on 04/26/2021 for metastatic (M1) prostate cancer. Current treatment: Zytiga and prednisone leuprolidse acetate 45 mg every 6 months & denosumab 120 mg monthly Interim history: He is doing well with androgen ablation therapy with Zytiga and prednisone. Patient has no increased fatigue, bone pain or hot flashes since he started this treatment. He has no fever, chills or dysuria. He denied hematuria, polyuria or polydipsia. His blood sugar nonfasting was 120. He has no nausea, vomiting or diarrhea. No breast swelling or tenderness. He has mild arthritic pain. 1-Duration: 2021 2-Location: prostate 3-Severity: N/A 4-Quality: Not applicable 5-Context: N/A 6-Timing: N/A 7-Modifying factors: No treatment prior to referral 8-Associated signs & symptoms: no additional symptoms No question data found. PATHOLOGY: FINAL DIAGNOSIS A. PROSTATE, BIOPSY, RIGHT BASE: Prostatic adenocarcinoma, Rasheed score 3+4=7 (Grade group 2), involving 60% of one core (8 mm tumor length). - Percentage of [place] pattern 4 = 20%. - Expansile cribriform morphology is present. B. PROSTATE, BIOPSY, RIGHT MID: Prostatic adenocarcinoma, Rasheed score 4+3=7 (Grade group 3), involving 90% of one core (10 mm tumor length). - Percentage of [place] pattern 4 = 90%. - Expansile cribriform morphology is present. C. PROSTATE, BIOPSY, RIGHT APEX: Prostatic adenocarcinoma, [place] score 3+4=7 (Grade group 2), involving 35% of one core (3 mm tumor length). - Percentage of [place] pattern 4 = 5%. - Cribriform morphology is absent. D. PROSTATE, BIOPSY, RIGHT LATERAL BASE: High-grade prostatic intraepithelial neoplasia. E. PROSTATE, BIOPSY, RIGHT LATERAL MID: Prostatic adenocarcinoma, [place] score 3+4=7 (Grade group 2), involving 85% of one core (10 mm tumor length). - Percentage of Rasheed pattern 4 = 10%. - Definitive cribriform morphology is absent. F. PROSTATE, BIOPSY, RIGHT LATERAL APEX: Prostatic adenocarcinoma, Ras[place] score 3+4=7 (Grade group 2), involving 50% of one core (6.5 mm tumor length). - Percentage of Rasheed pattern 4 = 5%. - Cribriform morphology is absent. G. PROSTATE, BIOPSY, LEFT BASE: Prostatic adenocarcinoma, Rasheed score 3+3=6 (Grade group 1), involving 4% of one core (0.5 mm tumor length). Separate focus with atypical small acinar proliferation. H. PROSTATE, BIOPSY, LEFT MID: Benign prostatic tissue. I. PROSTATE, BIOPSY, LEFT APEX: Benign prostatic tissue. J. PROSTATE, BIOPSY, LEFT LATERAL BASE: Benign prostatic tissue. K. PROSTATE, BIOPSY, LEFT LATERAL MID: Benign prostatic tissue. L. PROSTATE, BIOPSY, LEFT LATERAL APEX: Benign prostatic tissue. Prostate Cancer Biopsy Summary Number of cores examined: 12 Number of cores positive: 6 Highest Grade Group: 3 Highest % of core involvement: 90% Cribriform pattern 4: Present Intraductal carcinoma: Absent LAB: WBC (k/uL) Date Value 02/12/2022 5.73 RBC (m/uL) Date Value 02/12/2022 3.97 (L) Hemoglobin (g/dL) Date Value 02/12/2022 10.1 (L) Hematocrit (%) Date Value 02/12/2022 31.7 (L) MCV (fL) Date Value 02/12/2022 79.8 (L) MCH (pg) Date Value 02/12/2022 25.4 (L) MCHC (g/dL) Date Value 02/12/2022 31.9 RDW-CV (%) Date Value 02/12/2022 19.3 (H) Platelet Count (k/uL) Date Value 02/12/2022 174 MPV (fL) Date Value 02/12/2022 8.5 (L) Neut% (%) Date Value 02/12/2022 50.5 Lymph% (%) Date Value 02/12/2022 38.7 Ferry% (%) Date Value 02/12/2022 8.2 Eosin% (%) Date Value 05/28/2021 1.5 Baso% (%) Date Value 02/12/2022 0.5 Abs Neut (k/uL) Date Value 02/12/2022 2.89 Abs Ferry (k/uL) Date Value 02/12/2022 0.47 Abs Eosin (k/uL) Date Value 02/12/2022 0.11 Abs Baso (k/uL) Date Value 02/12/2022 0.03 Creatinine Date Value Ref Range Status 02/12/2022 0.98 0.73 - 1.22 mg/dL Final 11/20/2021 1.05 0.73 - 1.22 mg/dL Final 08/24/2021 0.98 0.73 - 1.22 mg/dL Final 05/28/2021 1.07 0.73 - 1.22 mg/dL Final PSA (ng/mL) Date Value 02/12/2022 <0.02 11/20/2021 0.02 08/24/2021 0.07 05/28/2021 2.22 03/28/2021 29.34 03/13/2021 24.8 01/18/2020 2.52 URINE POC GLUCOSE UA (POCT) Negative 04/10/2021 BILIRUBIN UA (POCT) Negative 04/10/2021 KETONE UA (POCT) Negative 04/10/2021 SPECIFIC GRAVITY UA (POCT) 1.020 04/10/2021 HEMOGLOBIN/BLOOD UA (POCT) Negative 04/10/2021 PH UA (POCT) 7.0 04/10/2021 PROTEIN UA (POCT) Negative 04/10/2021 UROBILINOGEN UA (POCT) 0.2 04/10/2021 NITRITE UA (POCT) Negative 04/10/2021 LEUKOCYTES UA (POCT) Negative 04/10/2021 COLOR UA (POCT) Yellow 04/10/2021 CLARITY UA (POCT) Clear 04/10/2021 IMAGING: None No imaging to review. ALLERGIES: ALLERGIES Allergen Reactions Envirornmental [Oth* Intolerance MEDICATIONS: predniSONE (DELTASONE) 5 mg tablet Take 1 tablet by mouth twice daily. abiraterone 250 mg tablet TAKE 4 TABLETS (1,000MG) BY MOUTH ONCE DAILY ON AN EMPTY STOMACH 1 HOUR BEFORE OR 2 HOURS AFTER A MEAL cimetidine (TAGAMET) 200 mg tablet Take 200 mg by mouth twice daily. tamsulosin (FLOMAX) 0.4 mg Take 1 capsule by mouth once daily. calcium carbonate/vitamin D3 (CALCIUM + D ORAL) Take 1 tablet by mouth twice daily. leuprolide acetate (ELIGARD SUBCUTANEOUS) Inject subcutaneously once every 6 months. denosumab (XGEVA SUBCUTANEOUS) Inject subcutaneously once every month. iv contrast (will be provided with radiology test) MRI Prostate Inject, intravenously, once for 1 dose. No IV access, insert saline lock prior to the beginning of sedation, infusion, injection of imaging exam. Discontinue saline lock post exam. If Pt. has a central line or IVAD, may access for administration according to line specific nursing protocol. Once exam is complete flush line and de-access according to line specific nursing protocol in the MR contrast administration guidelines link. 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 HEAD & NECK: No blurred vision or Sjogren's syndrome CARDIOVASCULAR: NO CHEST PAIN, PALPITATIONS, ANKLE EDEMA RESPIRATORY: No chronic cough, wheezing, dyspnea, hemoptysis. MUSCULOSKELETAL: NO CHRONIC BACK PAIN, ARTHRITIS, CHRONIC NECK PAIN SKIN: NO VARICOSE VEINS, RASH, ABNORMAL ITCHING BLOOD/LYMPHATIC: No easy bleeding, easy bruising, transfusion Hx NEUROLOGICAL: NO HEADACHES, NUMBNESS, SEIZURES, STROKE PSYCHIATRIC: No depression or inordinate anxiety The remainder of the ROS was negative. PHYSICAL EXAMINATION Resp 18 Ht 170.2 cm (5' 7) Wt 69.4 kg (153 lb) BMI 23.96 kg/m General appearance: Well appearing, alert, in no acute distress and well-hydrated, well nourished Skin: Skin color, texture, turgor normal, no suspicious rashes or lesions Head: Normocephalic, no masses, lesions, tenderness or abnormalities Abdomen: Normal abdominal exam, Abdomen soft, non-tender. Bowel sounds normal. No masses, organomegaly Genitourinary: MALE EXAM: Exam NOT Indicated PVR: NA IMPRESSION/PLAN: 65-year-old gentleman with history of refractory anemia with new diagnosis of metastatic prostate cancer (M1) Ras[place] score 7 & PSA 27; low-volume bone metastasis and no visceral metastasis. -Continue Zytiga 1,000mg in the morning & prednisone 5mg twice daily. -Continue Eligard every 6 months and denosumab monthly for bone metastasis -Continue Flomax I spent 30 minutes in the visit, with more than 50% of the total [id number] time of the visit in counseling / coordination of care. Sp Mckeon DO MBA documented in this encounter [facility] 04-24-2022 Miscellaneous Notes Patient's request for medication is as follows Requested Prescriptions Signed Prescriptions Disp Refills predniSONE (DELTASONE) 5 mg tablet 60 tablet 2 Sig: Take 1 tablet by mouth twice daily. Order entered - please phone pharmacy and notify patient. Lillian Clemente MD documented in this encounter [facility] 04-17-2022 Miscellaneous Notes Patient's request for medication is as follows Requested Prescriptions Signed Prescriptions Disp Refills predniSONE (DELTASONE) 5 mg tablet 60 tablet 2 Sig: Take 1 tablet by mouth twice daily. Authorizing Provider: LILLIAN CLEMENTE Order entered - please phone pharmacy and notify patient. Lillian Clemente MD documented in this encounter [facility] 03-21-2022 Nurse Note Prior auth verified Patient labs reviewed No contraindications identified 03/21/2022 Lot: [id number] Expiration date: 01/2024 Administration location: abdomen left upper Patient education and follow up on AVS Next due date 1 month documented in this encounter [facility] 03-08-2022 History of Present illness Narrative In lieu of an in-person visit due to COVID-19 concerns, a distance health was performed on the patient. Patient is aware that I am not fully able to assess symptoms and do a full physical examination including vital signs assessment at this time. Patient consents to this encounter. FOLLOW UP VISIT - ENDOSCOPY NAME: Luther Castillo [facility] NO.: [id number] DATE OF SERVICE: 03/08/2022 : 1955 REFERRING PHYSICIAN: Arsalan Ocampo MD Luther is a patient I am following for history of colon polyps as well as family history of colon cancer. Patient was also noting upper abdominal complaints and EGD was recommended in addition to colonoscopy. Dr. Mcgowan performed upper and lower endoscopy on 02/27/22. The patient was found to have esophagitis and erythematous mucosa of the antrum on EGD. Colonoscopy showed non-bleeding internal hemorrhoids, no polyps or other concerning findings. Pathology demonstrated: FINAL DIAGNOSIS A. Stomach, antrum, biopsy: - Chronic inactive antral gastritis. - Immunohistochemistry for Helicobacter pylori will be reported in an addendum. B. Esophagogastric junction, biopsy: - Squamous epithelium with features of reflux. - Inflamed gastric cardia-type mucosa. - No evidence of intestinal metaplasia or dysplasia. Addendum This addendum is issued to report the results of immunohistochemical stains. The original diagnoses remain unchanged. Immunohistochemical stain for Helicobacter pylori performed on the gastric biopsy is negative (Block A1). The patient notes no new complaints since the procedure. Notes tagamet does not seem to be helping that much to alleviate his GERD and gastritis symptoms. Assessment IMPRESSION: GERD and gastritis, negative for H. Pylori. Normal colonoscopy, family history of colon cancer PLAN: edwin martinez The operative findings and pathology report were reviewed with the patient, and the patient has had the opportunity to ask questions and have questions answered. If the patient notes any problems or changes in bowel function, the patient should contact me immediately. Otherwise I recommend follow up endoscopy in 5 years based on family history of colon cancer and personal history of polyps. HM updated and recall letter generated. On Tagament, notes does not seem to be helping enough but has to be very careful of what he takes due to his other medication regimen Dietary and lifestyle modifications as discussed Consider adding carafate [id number] will check with Dr. Clemente first Patient verbalized understanding of all above and agreed with the plan Diagnoses: (K29.30) Chronic superficial gastritis without bleeding (primary encounter diagnosis) (K21.00) Gastroesophageal reflux disease with esophagitis without hemorrhage (Z80.0) Family history of colon cancer I spent a total of 21 minutes on the date of the service which included preparing to see the patient, completing clinical documentation, obtaining and/or reviewing separately obtained history, counseling and educating the patient/family/caregiver, independently interpreting results (not separately reported), and communicating results to the patient/family/caregiver. Derrek Baker PA-C documented in this encounter [facility] 03-06-2022 Miscellaneous Notes Pt notified and voiced understanding. Mariangel Baum Ma ----- Message from Arsalan Ocampo MD sent at 03/06/2022 11:25 AM EST ----- Stomach and esophagus biopsy showed gastritis without cancer or dysplasia. H pylori negative. F/u with Derrek Baker as scheduled. documented in this encounter [facility] 02-27-2022 Nurse Note Pt received in PACU. Pt mildly drowsy, but arouses very easily. Denies pain or nausea. Abd soft and non distended. Lilibeth Stanton RN documented in this encounter [facility] 02-27-2022 History and physical note UPDATED PROCEDURAL SEDATION HISTORY AND PHYSICAL EXAMINATION SERVICE DATE: 02/27/2022 SERVICE TIME: 8:51 PHYSICAL EXAM MUST BE COMPLETED ON ADMISSION PROCEDURE: EGD and colonoscopy possible biposies Procedure Indications: GERD, history of colon polyps The History and Physical (completed in the past 30 days) has been reviewed and the patient has been examined. The contents accurately reflect the patient's condition with the following additions or revisions since the H&P was completed. ASA Class: ASA Class:: Patient with mild systemic disease Examination indicates no changes. AIRWAY: Airway Visualization of Uvula: Yes Mouth opening greater than 2 fingerbreadths: Yes Neck Full Range of Motion: Yes LUNGS: Lungs clear to auscultation CARDIAC: Regular rhythm,Regular rate Provisional Diagnosis/Treatment Plan: EGD and colonoscopy, possible biposies SEDATION GOAL: Moderate This H&P can be found in the Electronic Medical Record SIGNATURE: Lyn Mcgowan MD PATIENT NAME: Luther Castillo DATE: February 27, 2022 TIME: 8:51 AM Source Note - Lyn Mcgowan MD - 02/27/2022 9:00 AM EST HISTORY AND PHYSICAL Luther Castillo 1955 REFERRING PHYSICIAN: Arsalan Ocampo,* CHIEF COMPLAINT: Consult (Colonoscopy consult, last colon 2017-repeat in 5 years) HPI: The patient is a 66 year old male referred for endoscopy. Luther notes a past history of colon polyps. Patient denies any change in bowel habits, weight changes, blood in stools, black tarry stools or abdominal pain. NOTES family history of colon cancer-sister. The patient NOTES upper GI complaints-GERD, was previously on a long-term PPI and now on Tagamet. Notes history of refractory anemia. Luther has undergone prior endoscopy. Most recent colonoscopy 02/10/[address] Hinojosa with no concerning findings, 5 year follow-up recommended. Past medical history significant for metastatic prostate cancer. Patient follows with Dr. Clemente in hem/onc and Dr. Ocampo in primary care. Patient denies chest pain, shortness of breath or recent ED visits. Denies problems with sedation in the past. 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) 12/07/2020 Vasovagal reaction 10/09/2016 PAST SURGICAL HISTORY PAST SURGICAL HISTORY Procedure Laterality Date COLONOSCOPY FLX DX W/COLLJ SPEC WHEN PFRMD 10/2006 Colonoscopy COLONOSCOPY FLX DX W/COLLJ SPEC WHEN PFRMD 03/06/2012 Colonoscopy COLONOSCOPY FLX DX W/COLLJ SPEC WHEN PFRMD 02/10/2017 5 year repeat DIAGNOSTIC ARTHROSCOPY SHOULDER +- SYNOVIAL BX Right 10/11/2016 Right shoulder arthroscopic rotator cuff debridement, biceps tenotomy ESOPHAGOGASTRODUODENOSCOPY TRANSORAL DIAGNOSTIC 03/10/2008 EGD ESOPHAGOGASTRODUODENOSCOPY TRANSORAL DIAGNOSTIC 02/26/16 EGD PAST SURGICAL HISTORY OF right wrist surgery PAST SURGICAL HISTORY OF 10/05/02 right carpal tunnel PAST SURGICAL HISTORY OF 10/19/02 left carpal tunnel RECONSTRUCTION ROTATOR CUFF AVULSION CHRONIC Right 10/11/2016 Right shoulder subacromial decompression TONSILLECTOMY HX TONSILLECTOMY PRIMARY/SECONDARY <AGE 12 Tonsillectomy CURRENT MEDICATIONS Current Outpatient Medications Medication Sig predniSONE (DELTASONE) 5 mg tablet TAKE 1 TABLET BY MOUTH TWICE DAILY fluocinonide (LIDEX) 0.05 % cream Apply to affected skin r back twice weekly prn flare cimetidine (TAGAMET) 200 mg tablet Take 200 mg by mouth twice daily. abiraterone 250 mg tablet TAKE 4 TABLETS (1,000MG) BY MOUTH ONCE DAILY ON AN EMPTY STOMACH 1 HOUR BEFORE OR 2 HOURS AFTER A MEAL tamsulosin (FLOMAX) 0.4 mg Take 1 capsule by mouth once daily. calcium carbonate/vitamin D3 (CALCIUM + D ORAL) Take 1 tablet by mouth twice daily. leuprolide acetate (ELIGARD SUBCUTANEOUS) Inject subcutaneously once every 6 months. denosumab (XGEVA SUBCUTANEOUS) Inject subcutaneously once every month. iv contrast (will be provided with radiology test) MRI Prostate Inject, intravenously, once for 1 dose. No IV access, insert saline lock prior to the beginning of sedation, infusion, injection of imaging exam. Discontinue saline lock post exam. If Pt. has a central line or IVAD, may access for administration according to line specific nursing protocol. Once exam is complete flush line and de-access according to line specific nursing protocol in the MR contrast administration guidelines link. Current Facility-Administered Medications Medication Dose Route Frequency denosumab 120 mg injection (XGEVA) 120 mg SUBCUTANEOUS q 4 WEEKS ALLERGIES: Envirornmental [Other] PERSONAL HISTORY: SOCIAL HISTORY Social History Tobacco Use Smoking status: Former Packs/day: 0.25 Years: 2.50 Pack years: 0.63 Types: Cigarettes Quit date: 07/13/1973 Years since quittin.5 Smokeless tobacco: Never Vaping Use Vaping Use: Never used Substance Use Topics Alcohol use: Yes Alcohol/week: 15.0 standard drinks Types: 6 Cans of Beer (12oz) per week Comment: occasionally Drug use: No FAMILY HISTORY: FAMILY HISTORY FAMILY HISTORY Problem Relation Age of Onset Arthritis Mother Prostate Cancer Father Colon Cancer Sister None Sister Heart Attack Maternal Grandfather Prostate Cancer Paternal Uncle REVIEW OF SYMPTOMS: The review of systems data was entered by the nurse and reviewed by nm Nursing Notes: Harika Cortez RN 01/25/2022 9:53 AM Signed REVIEW OF SYSTEMS: General: The patient NOTES fatigue, denies weight loss, denies weight gain, denies feeling hot, and denies feelings of cold. Eyes: The patient denies glaucoma, denies eye injury/surgery, does not wear glasses or contacts. Ear/Nose/Throat: The patient denies allergies, NOTES hayfever, denies ear infections, and denies bloody noses. Cardiovascular: The patient denies chest pain, denies heart disease, denies high blood pressure,denies cardiac stent, denies prior heart attack, denies irregular heart beat, denies high cholesterol, denies poor circulation, denies heart failure, other cardiac issues, denies claudication, denies cold feet, denies peripheral arterial stent. Respiratory: The patient denies tuberculosis, denies pneumonia, denies frequent cough, denies pulmonary embolism, denies shortness of breath, and denies coughing up blood. Gastrointestinal: The patient denies difficulty swallowing, NOTES acid reflux, denies ulcers, denies vomiting, denies jaundice/hepatitis, denies gallbladder problems, denies black or tarry stools, denies hemorrhoids, denies bleeding from rectum, denies diverticulitis, denies constipation, denies diarrhea, denies loss of stool control, and denies hernias. Kidney/Bladder: The patient denies kidney stones, denies urine infections, and denies bloody urine. Skin: The patient denies a history of skin cancer, denies bleeding/changing moles, and denies a history of skin rash. Neurologic: The patient denies a history of epilepsy/convulsions, denies headaches, denies head/spinal injuries, and denies stroke/TIA. Psychiatric: The patient denies psychiatric medications, denies depression, and denies voices, denies substance abuse. Endocrine: The patient denies thyroid disorders, denies diabetes, and denies hormonal problems. Hematologic: The patient denies a history of bruising, denies bleeding, and NOTES anemia, denies blood clots. Infections: The patient denies a history of measles and mumps, denies rheumatic fever, and denies sexually transmitted diseases. Musculoskeletal: The patient denies back pain/injury, denies back problems, denies sciatica, denies knee/foot trouble, denies arthritis, or denies gout. When was patient's last Mammogram screening? N/A Last Colonoscopy: 2017 Harika Cortez RN I have confirmed and edited as necessary, the PFSH and ROS obtained by others. Derrek Baker PA-C PHYSICAL EXAMINATION: General: The patient is 66 year old male, well nourished, well hydrated in no acute distress. The patient is oriented to time, place, and person. VITALS: Blood pressure 108/67, pulse 103, temperature 36.6 C (97.9 F), height 172.7 cm (5' 8), weight 72.3 kg (159 lb 6.4 oz), SpO2 100 %. Body mass index is 24.24 kg/m . HEENT: Normal cephalic, ataumatic, pupils are equally round, sclera are anicteric, mucous membranes are moist, oropharynx is clear. Neck has no masses, asymmetry or lymphadenopathy. Respiratory: Clear to auscultation and percussion. Normal respiratory excursion and pattern. Cardiac: Examination is regular rate and rhythm. Normal S1/S2 Abdominal exam: Soft, nontender, with no palpable masses. No hepatosplenomegaly. No palpable hernias. Extremities: no clubbing, cyanosis or edema. No adenopathy. LABORATORY VALUES: As Noted RADIOLOGIC STUDIES: As Noted Assessment IMPRESSION: personal history of colon polyps, family history of colon cancer, encounter for surveillance colonoscopy. GERD, epigastric pain, history of anemia PLAN: I have reviewed my findings with the surgeon. Will plan for upper and lower endoscopy. We discussed the risks and benefits of the planned endoscopy. I have informed the patient that complications can occur including failure to complete the endoscopy and perforation. The patient had the opportunity to ask questions concerning the planned endoscopy. My staff has also explained the procedure to the patient in understandable terms and has given the patient printed material concerning the procedure. The patient freely consents to surgery. The patient was offered a surgery/procedure at a [facility] facility. I have counseled the patient regarding the risk of exposure to and/or potential harm posed by the COVID-19 virus with having a surgery/procedure at this time versus the risk of delaying the surgery/procedure. It is not possible to know either the risk of delaying the surgery or procedure or chance of getting an infection with perfect accuracy, but a joint decision was made between the patient and myself to proceed at this time with endoscopy. I plan to use Golytely bowel preparation I have explained to the patient the difference between IV conscious sedation and MAC anesthesia - and I have offered either, according to the patient's wishes. I have explained that with IV conscious sedation there is no anesthesia provider available and therefore there is a limitation of the amount of IV medications that can be given and that the patient may wake up in the middle of the procedure and/or experience pain/discomfort during the procedure. Further discussion was done and the patient was given the opportunity to ask questions and all questions were answered. The patient chooses IV conscious sedation Diagnoses: (Z86.010) History of colonic polyps (primary encounter diagnosis) (Z12.11) Screening for colon cancer (R10.13) Epigastric pain (K21.9) Gastroesophageal reflux disease, unspecified whether esophagitis present (Z86.2) History of anemia (C61) Prostate cancer (HCC) Consultation requested by Dr. Ocampo for an opinion regarding surveillance colonoscopy. My final recommendations will be communicated back to the requesting physician by way of shared Medical record or letter to requesting physician via US mail. Derrek Baker PA-C HISTORY AND PHYSICAL Luther Castillo 1955 REFERRING PHYSICIAN: Arsalan Ocampo,* CHIEF COMPLAINT: Consult (Colonoscopy consult, last colon 2016-repeat in 5 years) HPI: The patient is a 66 year old male referred for endoscopy. Luther notes a past history of colon polyps. Patient denies any change in bowel habits, weight changes, blood in stools, black tarry stools or abdominal pain. NOTES family history of colon cancer-sister. The patient NOTES upper GI complaints-GERD, was previously on a long-term PPI and now on Tagamet. Notes history of refractory anemia. Luther has undergone prior endoscopy. Most recent colonoscopy 02/10/[address] Hinojosa with no concerning findings, 5 year follow-up recommended. Past medical history significant for metastatic prostate cancer. Patient follows with Dr. Clemente in hem/onc and Dr. Ocampo in primary care. Patient denies chest pain, shortness of breath or recent ED visits. Denies problems with sedation in the past. 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) 12/07/2020 Vasovagal reaction 10/09/2016 PAST SURGICAL HISTORY PAST SURGICAL HISTORY Procedure Laterality Date COLONOSCOPY FLX DX W/COLLJ SPEC WHEN PFRMD 10/2006 Colonoscopy COLONOSCOPY FLX DX W/COLLJ SPEC WHEN PFRMD 03/06/2012 Colonoscopy COLONOSCOPY FLX DX W/COLLJ SPEC WHEN PFRMD 02/10/2017 5 year repeat DIAGNOSTIC ARTHROSCOPY SHOULDER +- SYNOVIAL BX Right 10/11/2016 Right shoulder arthroscopic rotator cuff debridement, biceps tenotomy ESOPHAGOGASTRODUODENOSCOPY TRANSORAL DIAGNOSTIC 03/10/2008 EGD ESOPHAGOGASTRODUODENOSCOPY TRANSORAL DIAGNOSTIC 02/26/16 EGD PAST SURGICAL HISTORY OF right wrist surgery PAST SURGICAL HISTORY OF 10/05/02 right carpal tunnel PAST SURGICAL HISTORY OF 10/19/02 left carpal tunnel RECONSTRUCTION ROTATOR CUFF AVULSION CHRONIC Right 10/11/2016 Right shoulder subacromial decompression TONSILLECTOMY HX TONSILLECTOMY PRIMARY/SECONDARY <AGE 10 Tonsillectomy CURRENT MEDICATIONS Current Outpatient Medications Medication Sig predniSONE (DELTASONE) 5 mg tablet TAKE 1 TABLET BY MOUTH TWICE DAILY fluocinonide (LIDEX) 0.05 % cream Apply to affected skin r back twice weekly prn flare cimetidine (TAGAMET) 200 mg tablet Take 200 mg by mouth twice daily. abiraterone 250 mg tablet TAKE 4 TABLETS (1,000MG) BY MOUTH ONCE DAILY ON AN EMPTY STOMACH 1 HOUR BEFORE OR 2 HOURS AFTER A MEAL tamsulosin (FLOMAX) 0.4 mg Take 1 capsule by mouth once daily. calcium carbonate/vitamin D3 (CALCIUM + D ORAL) Take 1 tablet by mouth twice daily. leuprolide acetate (ELIGARD SUBCUTANEOUS) Inject subcutaneously once every 6 months. denosumab (XGEVA SUBCUTANEOUS) Inject subcutaneously once every month. iv contrast (will be provided with radiology test) MRI Prostate Inject, intravenously, once for 1 dose. No IV access, insert saline lock prior to the beginning of sedation, infusion, injection of imaging exam. Discontinue saline lock post exam. If Pt. has a central line or IVAD, may access for administration according to line specific nursing protocol. Once exam is complete flush line and de-access according to line specific nursing protocol in the MR contrast administration guidelines link. Current Facility-Administered Medications Medication Dose Route Frequency denosumab 120 mg injection (XGEVA) 120 mg SUBCUTANEOUS q 4 WEEKS ALLERGIES: Envirornmental [Other] PERSONAL HISTORY: SOCIAL HISTORY Social History Tobacco Use Smoking status: Former Packs/day: 0.25 Years: 2.50 Pack years: 0.63 Types: Cigarettes Quit date: 07/13/1973 Years since quittin.5 Smokeless tobacco: Never Vaping Use Vaping Use: Never used Substance Use Topics Alcohol use: Yes Alcohol/week: 15.0 standard drinks Types: 6 Cans of Beer (12oz) per week Comment: occasionally Drug use: No FAMILY HISTORY: FAMILY HISTORY FAMILY HISTORY Problem Relation Age of Onset Arthritis Mother Prostate Cancer Father Colon Cancer Sister None Sister Heart Attack Maternal Grandfather Prostate Cancer Paternal Uncle REVIEW OF SYMPTOMS: The review of systems data was entered by the nurse and reviewed by me Nursing Notes: Harika Cortez RN 01/25/2022 9:53 AM Signed REVIEW OF SYSTEMS: General: The patient NOTES fatigue, denies weight loss, denies weight gain, denies feeling hot, and denies feelings of cold. Eyes: The patient denies glaucoma, denies eye injury/surgery, does not wear glasses or contacts. Ear/Nose/Throat: The patient denies allergies, NOTES hayfever, denies ear infections, and denies bloody noses. Cardiovascular: The patient denies chest pain, denies heart disease, denies high blood pressure,denies cardiac stent, denies prior heart attack, denies irregular heart beat, denies high cholesterol, denies poor circulation, denies heart failure, other cardiac issues, denies claudication, denies cold feet, denies peripheral arterial stent. Respiratory: The patient denies tuberculosis, denies pneumonia, denies frequent cough, denies pulmonary embolism, denies shortness of breath, and denies coughing up blood. Gastrointestinal: The patient denies difficulty swallowing, NOTES acid reflux, denies ulcers, denies vomiting, denies jaundice/hepatitis, denies gallbladder problems, denies black or tarry stools, denies hemorrhoids, denies bleeding from rectum, denies diverticulitis, denies constipation, denies diarrhea, denies loss of stool control, and denies hernias. Kidney/Bladder: The patient denies kidney stones, denies urine infections, and denies bloody urine. Skin: The patient denies a history of skin cancer, denies bleeding/changing moles, and denies a history of skin rash. Neurologic: The patient denies a history of epilepsy/convulsions, denies headaches, denies head/spinal injuries, and denies stroke/TIA. Psychiatric: The patient denies psychiatric medications, denies depression, and denies voices, denies substance abuse. Endocrine: The patient denies thyroid disorders, denies diabetes, and denies hormonal problems. Hematologic: The patient denies a history of bruising, denies bleeding, and NOTES anemia, denies blood clots. Infections: The patient denies a history of measles and mumps, denies rheumatic fever, and denies sexually transmitted diseases. Musculoskeletal: The patient denies back pain/injury, denies back problems, denies sciatica, denies knee/foot trouble, denies arthritis, or denies gout. When was patient's last Mammogram screening? N/A Last Colonoscopy: 2017 Harika Cortez RN I have confirmed and edited as necessary, the PFSH and ROS obtained by others. Derrek Baker PA-C PHYSICAL EXAMINATION: General: The patient is 66 year old male, well nourished, well hydrated in no acute distress. The patient is oriented to time, place, and person. VITALS: Blood pressure 108/67, pulse 103, temperature 36.6 C (97.9 F), height 172.7 cm (5' 8), weight 72.3 kg (159 lb 6.4 oz), SpO2 100 %. Body mass index is 24.24 kg/m . HEENT: Normal cephalic, ataumatic, pupils are equally round, sclera are anicteric, mucous membranes are moist, oropharynx is clear. Neck has no masses, asymmetry or lymphadenopathy. Respiratory: Clear to auscultation and percussion. Normal respiratory excursion and pattern. Cardiac: Examination is regular rate and rhythm. Normal S1/S2 Abdominal exam: Soft, nontender, with no palpable masses. No hepatosplenomegaly. No palpable hernias. Extremities: no clubbing, cyanosis or edema. No adenopathy. LABORATORY VALUES: As Noted RADIOLOGIC STUDIES: As Noted Assessment IMPRESSION: personal history of colon polyps, family history of colon cancer, encounter for surveillance colonoscopy. GERD, epigastric pain, history of anemia PLAN: I have reviewed my findings with the surgeon. Will plan for upper and lower endoscopy. We discussed the risks and benefits of the planned endoscopy. I have informed the patient that complications can occur including failure to complete the endoscopy and perforation. The patient had the opportunity to ask questions concerning the planned endoscopy. My staff has also explained the procedure to the patient in understandable terms and has given the patient printed material concerning the procedure. The patient freely consents to surgery. The patient was offered a surgery/procedure at a [facility] facility. I have counseled the patient regarding the risk of exposure to and/or potential harm posed by the COVID-19 virus with having a surgery/procedure at this time versus the risk of delaying the surgery/procedure. It is not possible to know either the risk of delaying the surgery or procedure or chance of getting an infection with perfect accuracy, but a joint decision was made between the patient and myself to proceed at this time with endoscopy. I plan to use Golytely bowel preparation I have explained to the patient the difference between IV conscious sedation and MAC anesthesia - and I have offered either, according to the patient's wishes. I have explained that with IV conscious sedation there is no anesthesia provider available and therefore there is a limitation of the amount of IV medications that can be given and that the patient may wake up in the middle of the procedure and/or experience pain/discomfort during the procedure. Further discussion was done and the patient was given the opportunity to ask questions and all questions were answered. The patient chooses IV conscious sedation Diagnoses: (Z86.010) History of colonic polyps (primary encounter diagnosis) (Z12.11) Screening for colon cancer (R10.13) Epigastric pain (K21.9) Gastroesophageal reflux disease, unspecified whether esophagitis present (Z86.2) History of anemia (C61) Prostate cancer (HCC) Consultation requested by Dr. Ocampo for an opinion regarding surveillance colonoscopy. My final recommendations will be communicated back to the requesting physician by way of shared Medical record or letter to requesting physician via US mail. Derrek Baker PA-C documented in this encounter [facility] 02-21-2022 Nurse Note The patient is here for an injection of Xgeva Dose: 120 mg Route: Subcutaneous Lot# [id number] Expiration date [facility]: 65666-189-10 Given without incident. Site: left arm Dr. Snow present in clinic at time of injection. The date due for the next injection is 1 month Patient education was given by nurse. Stephanie Duron RN documented in this encounter [facility] 02-14-2022 History of Present illness Narrative PATIENT NAME: Luther Castillo. CLINIC NO: [id number]. ATTENDING PHYSICIAN: Lillian Clemente MD. DATE OF SERVICE: 02/14/2022. 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 Since a year ago his PSA has increased from 2 to 29. He has no urinary symptoms including hematuria or dysuria. He has no fever or chills. He saw urology, Dr. Varghese on April 10 and subsequent prostate biopsy on April 19. MRI prostate showed cancer of prostate with capsular invasion some likely metastases to the pelvic bone region. His bone scan subsequently confirmed metastatic disease. Biopsy of prostate confirmed [place], prostate cancer. He started androgen deprivation therapy with leuprolidse acetate 45 mg & denosumab 120 mg monthly on 04/26/2021 for metastatic (M1) prostate cancer. Current treatment: Zytiga and prednisone Leuprolidse acetate 45 mg every 6 months & denosumab 120 mg monthly Interim history: He is doing well with androgen ablation therapy with Zytiga and prednisone. He denies increased fatigue, bone pain or hot flashes since he started this treatment. He has no fever, chills or dysuria. He denies hematuria, polyuria or polydipsia. His blood sugar nonfasting was 120. He has no nausea, vomiting or diarrhea. No breast swelling or tenderness. He has mild arthritic pain. All medications & allergies updated and reviewed by me. REVIEW OF SYSTEMS: CONSTITUTIONAL: No fevers, chills, nightsweats, unintended weight loss HEENT: Denies frequent or severe heaches, nasal congestion/sinus symptoms, problematic allergy problems. EYES: No diplopia or blurry vision. CARDIOVASCULAR: No chest pain, dyspnea, palpitations, orthopnea, PND, ankle edema. PULM: No dyspnea, unexplained cough. GI: No dysphagia/odynophagia, problematic reflux, constipation, diarrhea, changes in stool habits, hematochezia, melena. : No new urinary complaints, including dysuria, gross hematuria or pyuria. NEURO: No new balance problems, peripheral weakness/paresthesias or numbness of concern. MUSC-SKEL: No new joint pain, swelling, or erythema. PSY: No concerns regarding depression, anxiety or panic. INTEGUMENTARY: No new skin changes (rash, new or changing mole, new growth) PHYSICAL EXAMINATION: Performance status 90% BP 113/63 Pulse 96 Temp 97 Ht 5' 7.028 (1.70m) Wt 156 lb 8 oz (71.0kg) SpO2 98% BMI 24.48 kg/(m^2). HEENT: Head is normocephalic, atraumatic. Sclerae white, conjunctivae pink. PEERL. EOMs are intact. Oropharynx is benign. LYMPHATICS: There is no palpable adenopathy in the neck, supraclavicular region, axillae, or groin. LUNGS: Lungs are clear to percussion and auscultation. HEART: Heart is normal without murmurs, gallops, or rubs. ABDOMEN: Soft and nontender without organomegaly. No masses can be palpated. EXTREMITIES: Are without edema. NEUROLOGIC: Exam is physiologic LABS: Component Latest Ref Rng & Units 02/12/2022 WBC 3.70 - 11.00 k/uL 5.73 RBC 4.20 - 6.00 m/uL 3.97 (L) Hemoglobin 13.0 - 17.0 g/dL 10.1 (L) Hematocrit 39.0 - 51.0 % 31.7 (L) MCV 80.0 - 100.0 fL 79.8 (L) MCH 26.0 - 34.0 pg 25.4 (L) MCHC 30.5 - 36.0 g/dL 31.9 RDW-CV 11.5 - 15.0 % 19.3 (H) Platelet Count 150 - 400 k/uL 174 MPV 9.0 - 12.7 fL 8.5 (L) Neut% % 50.5 Abs Neut (ANC) 1.45 - 7.50 k/uL 2.89 Lymph% % 38.7 Abs Lymph 1.00 - 4.00 k/uL 2.22 Ferry% % 8.2 Abs Ferry <0.87 k/uL 0.47 Eosin% % 1.9 Abs Eosin <0.46 k/uL 0.11 Baso% % 0.5 Abs Baso <0.11 k/uL 0.03 Immature Gran % % 0.2 IMMATURE GRANS (ABS) <0.10 k/uL <0.03 NRBC /100 WBC 0.0 Absolute nRBC <0.01 k/uL <0.01 DTYPE Auto Component Latest Ref Rng & Units 02/12/2022 Protein, Total 6.3 - 8.0 g/dL 6.9 Albumin 3.9 - 4.9 g/dL 4.4 Calcium 8.5 - 10.2 mg/dL 9.1 Bilirubin, Total 0.2 - 1.3 mg/dL 0.6 Alkaline Phosphatase 38 - 113 U/L 78 AST 14 - 40 U/L 22 ALT 10 - 54 U/L 20 Glucose 74 - 99 mg/dL 92 BUN 9 - 24 mg/dL 22 Creatinine 0.73 - 1.22 mg/dL 0.98 Sodium 136 - 144 mmol/L 139 Potassium 3.7 - 5.1 mmol/L 4.1 Chloride 97 - 105 mmol/L 102 CO2 22 - 30 mmol/L 28 Anion Gap 9 - 18 mmol/L 9 eGFR >=60 mL/min/1.73m 84 Iron 41 - 186 ug/dL 117 TIBC 232 - 386 ug/dL 290 Transferrin Saturation 15.0 - 57.0 % 40.3 Ferritin 30.3 - 565.7 ng/mL 522.0 Component Latest Ref Rng & Units 07/07/2020 Erythropoietin 2.6 - 18.5 mIU/mL 10.5 Component Latest Ref Rng & Units 03/28/2021 05/28/2021 08/24/2021 11/20/2021 02/12/2022 PSA <2.60 ng/mL 29.34 (H) 2.22 0.07 0.02 <0.02 ASSESSMENT: 66-year-old gentleman with history of refractory anemia with new diagnosis of metastatic prostate cancer (M1) Rasheed score 7 & PSA 27; low-volume bone metastasis and no visceral metastasis. 1) metastatic prostate cancer -He is doing well and clinically responding to androgen deprivation therapy -PSA is undetectable. 2) family history of prostate cancer -Father and uncles with prostate cancer. 3) low-grade MDS -CBC essentially unchanged with no worsening anemia or fatigue on androgen ablation treatment for metastatic prostate cancer. PLAN: -Continue Zytiga 1,000mg in the morning & prednisone 5mg twice daily. -Continue Eligard every 6 months and denosumab monthly for bone metastasis & follow-up with urology regarding urinary symptoms if persists. -Refer for genetic counseling and possible genetic testing for hereditary cancer. -Return in 6 months for his follow-up of refractory anemia and metastatic prostate cancer. -We may discuss starting erythropoietin (Aranesp injection) for refractory anemia if he becomes symptomatic -Repeat CBC, CMP, LDH, PSA and iron study OV in 6 months I spent 30 minutes in the visit, with more than 50% of the total [id number] time of the visit in counseling / coordination of care. Portions of this documentation were copied and pasted from previous office visit notes in order to provide a cohesive continuity of the history. The note has been reviewed and edited and updated as necessary. Lillian Clemente MD Cc: MD Sp Scott DO documented in this encounter [facility] 01-21-2022 Miscellaneous Notes Patient's request for medication is as follows Requested Prescriptions Signed Prescriptions Disp Refills predniSONE (DELTASONE) 5 mg tablet 60 tablet 2 Sig: TAKE 1 TABLET BY MOUTH TWICE DAILY Authorizing Provider: LILLIAN CLEMENTE Order entered - please phone pharmacy and notify patient. Lillian Clemente MD documented in this encounter [facility] 12-13-2021 Nurse Note The patient is here for an injection of Xgeva Dose: 120 mg Route: Subcutaneous Lot# [id number] Expiration date [facility]: [id number] Given without incident. Site: left arm and right arm Dr. Mckeon present in clinic at time of injection. The date due for the next injection is 1 month Patient education was given by nurse. Stephanie Duron RN documented in this encounter [facility] 11-23-2021 Instructions Jessy Chase RN - 11/23/2021 9:56 AM EDT AFTERCARE CRYOTHERAPY The skin s response to cryosurgery (freezing) can be mild to more severe, depending on the depth of the freeze and location of the area treated. You may have minimal redness and swelling with little discomfort or significant discoloration and blistering with considerable discomfort. A burning sensation in the skin may last from several minutes to several hours after the procedure. Follow these instructions when caring for an area treated by cryosurgery. MINOR RESPONSE 1. Keep the area clean and dry for 24 hours. After 24 hours, the area may be washed gently with soap and water. 2. The area may sting or burn for a short time after treatment. 3. The treated area will be red in color at first then turn brown and flaky as it heals and the upper layer of skin sloughs off. 4. Gently cleanse the area with Q-tips dipped in plain warm water. Pat dry and apply a thin film of vaseline. Do this at least once a day to prevent infection. MAJOR REPSONSE 1. Follow instructions as stated above for minor response. 2. The area may sting and burn for several hours after treatment. 3. To relieve throbbing and pain, elevate the treatment area. 4. Tylenol (acetaminophen) may be taken every 3 to 4 hours for discomfort. 5. A blister will form in the area of freezing. It may be filled with clear fluid or blood. This response is not unusual. 6. Do not break the blister unless it becomes uncomfortable. You may puncture the blister with a sterile needle or pin to remove the fluid. Leave the skin intact. 7. Cleanse twice a day with plain warm water and apply Vaseline to prevent infection and a thick scab from forming. 8. All treated areas usually heal with 3 to 4 weeks. documented in this encounter [facility] 11-23-2021 History of Present illness Narrative Patient presents with: Full Body Skin Check RELEVANT DERMATOLOGY HISTORY: Personal Hx of skin cancer: ~ basal cell CA - 11/07/20, Mid Chest - ED&C ~ squamous cell CA - 3/18, Left Frontal Scalp - Mohs Personal Hx of atypical moles: no Family Hx of malignant melanoma: no Antibiotics before dental or other procedures: no Artificial joints: no Pacemaker: no Anticoagulants: no HPI: FBSC Personal history of nonmelanoma skin cancer as above No personal history of melanoma No family history of melanoma History of sun exposure Has several bumpy spots he would like to show me 1 rough scaly spot on right upper cheek no prior treatment has history of sun exposure AK's No nonhealing sores or changing moles Itchy spot on right upper back chronic mild no prior treatment patient reports history of postural problems back issues injection in the back REVIEW OF SYSTEMS Constitutional: Negative for chills, fatigue, fever, weight gain and weight loss ENMT: Negative for cold sores, sore throat Eyes: Negative for vision changes. Respiratory: Negative for cough/shortness of breath Cardio: Negative for chest pain or CHF GI: Negative for abdominal pain : Prostate cancer Endocrine: No thyroid issues/goiter Neuro: Negative for balance disturbance, no seizures Psych: Negative for anxiety, depression Integumentary: Negative except for Patient presents with: Full Body Skin Check As above MS: No muscle aches, joint pains Ryne/Lymph: No excessive bleeding, no swollen lymph nodes Allergic/Immunc: No new allergies Reproductive: Negative for discharge, lumps or masses. Current Outpatient Medications Medication Sig Dispense Refill cimetidine (TAGAMET) 200 mg tablet Take 200 mg by mouth twice daily. predniSONE (DELTASONE) 5 mg tablet TAKE 1 TABLET BY MOUTH TWICE DAILY 60 tablet 2 tamsulosin (FLOMAX) 0.4 mg Take 1 capsule by mouth daily at bedtime for 90 doses. 90 capsule 3 abiraterone 250 mg tablet TAKE 4 TABLETS (1,000MG) BY MOUTH ONCE DAILY ON AN EMPTY STOMACH 1 HOUR BEFORE OR 2 HOURS AFTER A MEAL 120 tablet 5 tamsulosin (FLOMAX) 0.4 mg Take 1 capsule by mouth once daily. 90 capsule 5 calcium carbonate/vitamin D3 (CALCIUM + D ORAL) Take 1 tablet by mouth twice daily. leuprolide acetate (ELIGARD SUBCUTANEOUS) Inject subcutaneously once every 6 months. denosumab (XGEVA SUBCUTANEOUS) Inject subcutaneously once every month. iv contrast (will be provided with radiology test) MRI Prostate Inject, intravenously, once for 1 dose. No IV access, insert saline lock prior to the beginning of sedation, infusion, injection of imaging exam. Discontinue saline lock post exam. If Pt. has a central line or IVAD, may access for administration according to line specific nursing protocol. Once exam is complete flush line and de-access according to line specific nursing protocol in the MR contrast administration guidelines link. 1 Each 0 Current Facility-Administered Medications Medication Dose Route Frequency Provider Last Rate Last Admin denosumab 120 mg injection (XGEVA) 120 mg SUBCUTANEOUS q 4 WEEKS Sp Mckeon DO 120 mg at 11/15/21 1020 HISTORIES FAMILY HISTORY Problem Relation Age of Onset Arthritis Mother Prostate Cancer Father Colon Cancer Sister None Sister Heart Attack Maternal Grandfather Prostate Cancer Paternal Uncle PAST MEDICAL HISTORY Diagnosis Date Abdominal pain, left lower quadrant Allergic rhinitis, cause unspecified Allergic rhinitis Arthritis Benign neoplasm of rectum and anal canal BPH (benign prostatic hyperplasia) Elevated PSA Dr Mckeon Family history of malignant neoplasm of prostate 02/13/2017 Gastroesophageal reflux disease with esophagitis 10/09/2016 History of squamous cell carcinoma of skin 06/2017 left frontal scalp Iron deficiency anemia, unspecified Prostate cancer (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) 12/07/2020 Vasovagal reaction 10/09/2016 PAST SURGICAL HISTORY Procedure Laterality Date COLONOSCOPY FLX DX W/COLLJ SPEC WHEN PFRMD 10/2006 Colonoscopy COLONOSCOPY FLX DX W/COLLJ SPEC WHEN PFRMD 03/06/2012 Colonoscopy COLONOSCOPY FLX DX W/COLLJ SPEC WHEN PFRMD 02/10/2017 5 year repeat DIAGNOSTIC ARTHROSCOPY SHOULDER +- SYNOVIAL BX Right 10/11/2016 Right shoulder arthroscopic rotator cuff debridement, biceps tenotomy ESOPHAGOGASTRODUODENOSCOPY TRANSORAL DIAGNOSTIC 03/10/2008 EGD ESOPHAGOGASTRODUODENOSCOPY TRANSORAL DIAGNOSTIC 02/26/16 EGD PAST SURGICAL HISTORY OF right wrist surgery PAST SURGICAL HISTORY OF 10/05/02 right carpal tunnel PAST SURGICAL HISTORY OF 10/19/02 left carpal tunnel RECONSTRUCTION ROTATOR CUFF AVULSION CHRONIC Right 10/11/2016 Right shoulder subacromial decompression TONSILLECTOMY HX TONSILLECTOMY PRIMARY/SECONDARY <AGE 12 Tonsillectomy Social History Tobacco Use Smoking status: Former Packs/day: 0.25 Years: 2.50 Pack years: 0.63 Types: Cigarettes Quit date: 07/13/1973 Years since quittin.3 Smokeless tobacco: Never Vaping Use Vaping Use: Never used Substance Use Topics Alcohol use: Yes Alcohol/week: 15.0 standard drinks Types: 6 Cans of Beer (12oz) per week Comment: occasionally Drug use: No PHYSICAL EXAM Constitutional: Nourishment - normal weight. No acute distress. Well developed. Head/Face: Facial features - Normal. Eyebrows - Normal. Skull - Normal. Eyes: Inspection - Right: Normal, Left: Normal. Lids/external - Right: Normal, Left: Normal. Sclera - Right: Normal, Left: Normal. Ears: Inspection -Right: Normal, Left: Normal. Palpation - Right: Normal, Left: Normal. Pinna - Right: Normal, Left: Normal. Nasopharynx: External nose - Normal. Nares - Right: Normal, Left: Normal. Lips/gums - Normal. Tongue - Normal. Buccal mucosa - Normal. Breath odor - None. Neck Exam: Inspection - Normal. Palpation - Normal. Range of motion - Normal. Lymph Detail: Occipital/Postauricular/Preauricular/S ubmental/Submandibular/Anterior cervical/Posterior cervical/Supraclavicular/Axillary: No lymphadenopathy Breast: Inspection - Bilateral: Normal. Nipples - Bilateral: Normal. Respiratory: Inspection - Normal. Cough - Absent. Effort - Normal. Cardiovascular: Extremities - No edema. Vascular: Pulses - Dorsalis pedis: Normal. Abdomen: Inspection - Normal. No abdominal tenderness. No ascites. No palpable mass. Genitourinary: External genitalia - deferred Rectal: Perianal area - Normal. Back/Spine: Inspection - No abnormality. Musculoskeletal: Gait - Normal. Cervical spine - Normal. Extremity: No edema. No ulceration. No varicosities. Diabetic Foot Screen: Pulses - Dorsalis pedis: Normal. No ulceration. Neurological: Level of consciousness - Normal. Orientation - Normal. Memory - Normal. Motor - Normal. Balance & gait - Normal. Coordination - Normal. Psychiatric: Orientation - Oriented to time, place, person & situation. Appropriate mood and affect. Skin Exam: Mild xerosis on right upper back no dyschromia Small erythematous scaly papule below right lateral eye -6. Brown waxy warty stuck on papules on trunk and extremities Cabrera red vascular papules on trunk Light brown macules in sun distribution on upper body Multiple symmetric pigmented macules with benign features on trunk extremities 7. 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 Actinic keratosis - ICD9: 702.0, ICD10: L57.0 -Diagnosis treatment options discussed Cryosurgery of non-malignant lesion(s) HPI: Patient is here for cryosurgery Patient is alert oriented 3 not in apparent distress Luther Castillo Medical Record: [id number] Date: 11/23/2021 Procedure: Cryosurgery The risks, benefits and anticipated outcomes of the procedure, the risks and benefits of the alternatives to the procedure and the roles and tasks of the personnel to be involved were discussed with the patient and the patient consents to the procedure and agrees to proceed. I verify that I personally obtained Luther Castillo's consent. Richie Dejesus MD Dept of DERMATOLOGY Cryosurgery performed with Liquid Nitrogen via via cryostat spray gun to Actinic Keratosis. 1 lesion(s) treated on area noted above in #2. Patient tolerated treatment well. Wound care instructions provided, pt verbalizes understanding. Richie Dejesus MD 3. Seborrheic keratosis - ICD9: 702.19, ICD10: L82.1 -Diagnosis discussed, observe 4. 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 Lentigines - ICD9: 709.09, ICD10: L81.4 -Sun protection and monitoring 6. Multiple benign nevi - ICD9: 216.9, ICD10: D22.9 -Sun protection and monitoring 7. Personal history of skin cancer - ICD9: V10.83, ICD10: Z85.828 - Mole/melanoma/dysplastic nevus/skin cancer education given - Recommend sun protection with broad spectrum UVA UVB coverage, spf 30+ every day, reapply every 2-3 hours, use higher SPF 50+ for extended sun activities - Monitoring Richie Dejesus MD The documentation for this note was partially completed by Judit Garcia MA acting as scribe for Richie Dejesus MD. November 23, 2021 6:16 AM. I agree with the Chief Complaint, ROS, and Past Histories independently gathered by the clinical production support engineer and the remaining scribed note accurately describes my personal service to the patient. Judit Dejesus MD Return to clinic 6 months documented in this encounter [facility] 11-15-2021 Nurse Note Patient present for Xgeva injection 120mg injected into left upper arm subcutaneously. Lot #[id number] Exp 08/2023 documented in this encounter [facility] 11-13-2021 History of Present illness Narrative Chief Complaint Patient presents with: Follow Up: Wanting colonoscopy scheduled. HPI Luther Castillo is a 66 year old male who presents here today for routine follow up. Last annual check up 10/2018. Patient diagnosed with prostate cancer with mets to bone in April after PSA found to be >20. Confirmed with prostate biopsy. Managed by Dr. Mckeon and Dr. Baker is being treated with androgen deprivation therapy with Zytiga and Eligard. On Flomax for BPH symptoms as well as prednisone and Prolia for mets. Getting up every 2 hours to urinate without weak stream or straining to urinate. Feels like he is emptying completely. Has follow up in February with urology and oncology. Taking Tagemet OTC for GERD instead of PPI on recommendation of oncology instead of PPI. Working well for heartburn and stomach upset related to his Zytiga/Eligard. Appointment with dermatology Dr. Dejesus next month for history of SCC. Last colonoscopy in 2016 which was normal with recommendation to follow up in 5 years for repeat. Requesting referral today. Discussed need for 1st COVID booster. Interested in continuing with Moderna vaccine. Patient has living will and DPOA. Will bring in for our records. Past medical history, appointments, medications, allergies reviewed. 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) 12/07/2020 Vasovagal reaction 10/09/2016 Previous Surgical History PAST SURGICAL HISTORY Procedure Laterality Date COLONOSCOPY FLX DX W/COLLJ SPEC WHEN PFRMD 10/2006 Colonoscopy COLONOSCOPY FLX DX W/COLLJ SPEC WHEN PFRMD 03/06/2012 Colonoscopy COLONOSCOPY FLX DX W/COLLJ SPEC WHEN PFRMD 02/10/2017 5 year repeat DIAGNOSTIC ARTHROSCOPY SHOULDER +- SYNOVIAL BX Right 10/11/2016 Right shoulder arthroscopic rotator cuff debridement, biceps tenotomy ESOPHAGOGASTRODUODENOSCOPY TRANSORAL DIAGNOSTIC 03/10/2008 EGD ESOPHAGOGASTRODUODENOSCOPY TRANSORAL DIAGNOSTIC 02/26/16 EGD PAST SURGICAL HISTORY OF right wrist surgery PAST SURGICAL HISTORY OF 10/05/02 right carpal tunnel PAST SURGICAL HISTORY OF 10/19/02 left carpal tunnel RECONSTRUCTION ROTATOR CUFF AVULSION CHRONIC Right 10/11/2016 Right shoulder subacromial decompression TONSILLECTOMY HX TONSILLECTOMY PRIMARY/SECONDARY <AGE 12 Tonsillectomy Family History FAMILY HISTORY Problem Relation Age of Onset Arthritis Mother Prostate Cancer Father Colon Cancer Sister None Sister Heart Attack Maternal Grandfather Prostate Cancer Paternal Uncle Patient Allergies ALLERGIES Allergen Reactions Envirornmental [Oth* Intolerance Current Medications Current Outpatient Medications on File Prior to Visit Medication Sig cimetidine (TAGAMET) 200 mg tablet Take 200 mg by mouth twice daily. predniSONE (DELTASONE) 5 mg tablet TAKE 1 TABLET BY MOUTH TWICE DAILY abiraterone 250 mg tablet TAKE 4 TABLETS (1,000MG) BY MOUTH ONCE DAILY ON AN EMPTY STOMACH 1 HOUR BEFORE OR 2 HOURS AFTER A MEAL tamsulosin (FLOMAX) 0.4 mg Take 1 capsule by mouth once daily. calcium carbonate/vitamin D3 (CALCIUM + D ORAL) Take 1 tablet by mouth twice daily. leuprolide acetate (ELIGARD SUBCUTANEOUS) Inject subcutaneously once every 6 months. denosumab (XGEVA SUBCUTANEOUS) Inject subcutaneously once every month. tamsulosin (FLOMAX) 0.4 mg Take 1 capsule by mouth daily at bedtime for 90 doses. iv contrast (will be provided with radiology test) MRI Prostate Inject, intravenously, once for 1 dose. No IV access, insert saline lock prior to the beginning of sedation, infusion, injection of imaging exam. Discontinue saline lock post exam. If Pt. has a central line or IVAD, may access for administration according to line specific nursing protocol. Once exam is complete flush line and de-access according to line specific nursing protocol in the MR contrast administration guidelines link. Current Facility-Administered Medications on File Prior to Visit Medication denosumab 120 mg injection (XGEVA) Social History Social History Tobacco Use Smoking status: Former Packs/day: 0.25 Years: 2.50 Pack years: 0.63 Types: Cigarettes Quit date: 07/13/1973 Years since quittin.3 Smokeless tobacco: Never Vaping Use Vaping Use: Never used Substance Use Topics Alcohol use: Yes Alcohol/week: 15.0 standard drinks Types: 6 Cans of Beer (12oz) per week Comment: occasionally Drug use: No Review of Symptoms REVIEW OF SYSTEMS GENERAL: No weight loss, malaise or fevers RESPIRATORY: Negative for cough, hemoptysis, wheezing, COPD, dyspnea or shortness of breath CARDIOVASCULAR: Negative for chest pain, leg swelling, hypertension, CHF or palpitations GI: No nausea, vomiting, or diarrhea SKIN: Negative for lesions, rash, and itching EXAM: BP 110/62 Pulse 78 Resp 16 Wt 70.7 kg (155 lb 12.8 oz) SpO2 98% BMI 23.69 kg/m General Appearance: Well appearing, alert, in no acute distress, well-hydrated, well nourished.. Skin: Skin color, texture, turgor normal, no suspicious rashes or lesions. Lungs: Lungs clear to auscultation. No wheezing, rhonchi, rales.. Heart: RRR without murmur, gallop, or rubs. No ectopy. Abdomen: Normal abdominal exam, Abdomen soft, non-tender. Bowel sounds normal. No masses, organomegaly. Extremities: No deformities, edema, skin discoloration, clubbing or cyanosis. Good capillary refill. . Health Maintenance List ADVANCE DIRECTIVE DISCUSSION Never done COVID-19 VACCINE(4 - Booster for Moderna series) due on 05/17/2021 INFLUENZA(1) due on 12/06/2021 COLORECTAL CANCER SCREENING due on 02/10/2022 DEPRESSION SCREENING due on 08/26/2022 LIPID SCREEN due on 10/13/2023 DIABETES SCREEN due on 08/24/2024 PROSTATE CANCER SCREENING DISCUSSION due on 08/24/2026 DTAP,TDAP,TD(3 - Td or Tdap) due on 10/12/2028 ABDOMINAL AORTIC ANEURYSM SCREENING Completed HEPATITIS C SCREENING Completed SHINGRIX VACCINE Completed PNEUMOCOCCAL: 65+ Completed Data reviewed Component Latest Ref Rng & Units 05/28/2021 08/24/2021 WBC 3.70 - 11.00 k/uL 4.73 8.25 RBC 4.20 - 6.00 m/uL 3.98 (L) 4.00 (L) Hemoglobin 13.0 - 17.0 g/dL 10.1 (L) 10.0 (L) Hematocrit 39.0 - 51.0 % 31.6 (L) 31.7 (L) MCV 80.0 - 100.0 fL 79.4 (L) 79.3 (L) MCH 26.0 - 34.0 pg 25.4 (L) 25.0 (L) MCHC 30.5 - 36.0 g/dL 32.0 31.5 RDW-CV 11.5 - 15.0 % 19.5 (H) 19.3 (H) Platelet Count 150 - 400 k/uL 163 171 MPV 9.0 - 12.7 fL 8.4 (L) 8.6 (L) Neut% % 56.0 77.7 Abs Neut (ANC) 1.45 - 7.50 k/uL 2.65 6.41 Lymph% % 34.9 14.8 Abs Lymph 1.00 - 4.00 k/uL 1.65 1.22 Ferry% % 7.2 6.1 Abs Ferry <0.87 k/uL 0.34 0.50 Eosin% % 1.5 0.8 Abs Eosin <0.46 k/uL 0.07 0.07 Baso% % 0.4 0.1 Abs Baso <0.11 k/uL <0.03 <0.03 Immature Gran % % 0.5 IMMATURE GRANS (ABS) <0.10 k/uL 0.04 NRBC /100 WBC 0.0 Absolute nRBC <0.01 k/uL <0.01 <0.01 DTYPE Auto Nucleated Reds 0 /100 WBC 0.0 Diff Type Auto Diff Protein, Total 6.3 - 8.0 g/dL 6.7 6.8 Albumin 3.9 - 4.9 g/dL 4.3 4.1 Calcium 8.5 - 10.2 mg/dL 8.6 9.0 Bilirubin, Total 0.2 - 1.3 mg/dL 0.7 0.6 Alkaline Phosphatase 38 - 113 U/L 135 (H) 82 AST 14 - 40 U/L 36 25 Glucose 74 - 99 mg/dL 120 (H) 98 BUN 9 - 24 mg/dL 19 25 (H) Creatinine 0.73 - 1.22 mg/dL 1.07 0.98 Sodium 136 - 144 mmol/L 137 138 Potassium 3.7 - 5.1 mmol/L 4.1 3.9 Chloride 97 - 105 mmol/L 101 101 CO2 22 - 30 mmol/L 26 25 Anion Gap 9 - 18 mmol/L 10 12 ALT 10 - 54 U/L 27 25 eGFR- >60 eGFR-All Other Races . >60 eGFR >=60 mL/min/1.73m 84 PSA <2.60 ng/mL 2.22 0.07 ASSESSMENT/PLAN: 1. Prostate cancer (HCC) - ICD9: 185, ICD10: C61 (primary diagnosis) Managed by oncology and urology. Continue current regimen and will follow up recommendations this fall. 2. Bone metastasis (HCC) - ICD9: 198.5, ICD10: C79.51 See above. 3. Benign prostatic hyperplasia, unspecified whether lower urinary tract symptoms present - ICD9: 600.00, ICD10: N40.0 Patient still getting up every 2 hours to urinate. Discussed taking 2 tablets of flomax at night for the next week. If symptoms improve, will update rx. If not, resume current dosage. 4. 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 Will follow up recommendations from heme/onc. 5. Gastroesophageal reflux disease, unspecified whether esophagitis present - ICD9: 530.81, ICD10: K21.9 Improved - Continue treatment with Cimetidine 6. History of skin cancer - ICD9: V10.83, ICD10: Z85.828 No noted lesions on exposed skin. Keep follow up appointment with dermatology. 7. Screening for colon cancer - ICD9: V76.51, ICD10: Z12.11 - CONSULT TO GENERAL SURGERY Arsalan Ocampo MD documented in this encounter [facility] 10-11-2021 Nurse Note The patient is here for an injection of Xgeva Dose: 60mg/1ml Calcium, Total Date Value Ref Range Status 08/24/2021 9.0 8.5 - 10.2 mg/dL Final Last Office Visit was 09/2021 Route: Subcutaneous Given without incident Site: right upper quadrant abdomen Lot number [id number] Expiration Date 08/2023 Dr. Mckeon present in clinic at time of injection The date due for the next injection is 11/11/2021 Luther Arthur RN 9:24 AM October 11, 2021 Luther Castillo a 66 year old male, identified by name and date of , here for a 6 Month Lupron injection Hot Flashes:No Frequency: none Allergies reviewed: Yes Medication - prescribed and OTC reviewed and updated: Yes Latex allergy: no. PAIN SCALE: Is the patient having any pain? No 0 on a scale of 0 to 10 Injection Administration: 45 mg IM left upper abdomen. Lot Number:[id number] Expiration date:11/2022 Patient tolerated well. FOLLOW UP: Next Dose: 6 months documented in this encounter [facility] 09-05-2021 Note HNO ID: [id number] Author: Sp Mckeon, DO Service: ? Author Type: Physician Type: Progress Notes Filed: 09/05/2021 10:48 AM Note Text: ?? [facility] [place] [facility] LOCATION: [address] [place] [address] ESTABLISHED PATIENT PATIENT INFO: Luther Castillo 66 year old Chief Complaint: Metastatic Prostate Cancer HPI 65-year-old gentleman with history of refractory anemia who present with an?elevation PSA.??Since?a?year ago his PSA has increased from 2 to?29.??He has no urinary symptoms including hematuria or dysuria. ?He has no fever or chills. ?Prostate biopsy on April 19. ??MRI prostate showed?cancer of prostate with capsular invasion?some likely metastases to the pelvic bone region. ?His bone scan subsequently confirmed?metastatic disease.???Biopsy of prostate confirmed [place],?prostate cancer. ? He started androgen deprivation therapy with?leuprolidse?acetate 45 mg AND?denosumab?120 mg?monthly on?04/26/2021?for metastatic?(M1)?prostate cancer.? ? Current treatment: Zytiga and prednisone leuprolidse?acetate 45 mg?every 6 months?AND?denosumab?120 mg?monthly ? Interim history:?He is doing well with androgen ablation therapy with Zytiga and prednisone. ?Patient has no increased fatigue, bone pain or hot flashes since he started?this?treatment. ??He has no fever,?chills or dysuria. ?He denied hematuria, polyuria or polydipsia. ?His blood sugar nonfasting was 120. ?He has no nausea, vomiting or diarrhea. ?No breast swelling or tenderness. He has mild arthritic pain. 1-Duration: 2021 2-Location: prostate 3-Severity: N/A 4-Quality: Not applicable 5-Context: N/A 6-Timing: N/A 7-Modifying factors: No treatment prior to referral 8-Associated signs AND symptoms: no additional symptoms No question data found. PATHOLOGY: FINAL DIAGNOSIS A. PROSTATE, BIOPSY, RIGHT BASE: Prostatic adenocarcinoma, Rasheed score 3+4=7 (Grade group 2), involving 60% of one core (8 mm tumor length). - Percentage of Rasheed pattern 4 = 20%. - Expansile cribriform morphology is present. ? B. PROSTATE, BIOPSY, RIGHT MID: Prostatic adenocarcinoma, [place] score 4+3=7 (Grade group 3), involving 90% of one core (10 mm tumor length). - Percentage of [place] pattern 4 = 90%. - Expansile cribriform morphology is present. ? C. PROSTATE, BIOPSY, RIGHT APEX: Prostatic adenocarcinoma, [place] score 3+4=7 (Grade group 2), involving 35% of one core (3 mm tumor length). - Percentage of Rasheed pattern 4 = 5%. - Cribriform morphology is absent. ? D. PROSTATE, BIOPSY, RIGHT LATERAL BASE: High-grade prostatic intraepithelial neoplasia. ? E. PROSTATE, BIOPSY, RIGHT LATERAL MID: Prostatic adenocarcinoma, Rasheed score 3+4=7 (Grade group 2), involving 85% of one core (10 mm tumor length). - Percentage of [place] pattern 4 = 10%. - Definitive cribriform morphology is absent. ? F. PROSTATE, BIOPSY, RIGHT LATERAL APEX: Prostatic adenocarcinoma, Rasheed score 3+4=7 (Grade group 2), involving 50% of one core (6.5 mm tumor length). - Percentage of Rasheed pattern 4 = 5%. - Cribriform morphology is absent. ? G. PROSTATE, BIOPSY, LEFT BASE: Prostatic adenocarcinoma, Rasheed score 3+3=6 (Grade group 1), involving 4% of one core (0.5 mm tumor length). Separate focus with atypical small acinar proliferation. ? H. PROSTATE, BIOPSY, LEFT MID: Benign prostatic tissue. ? I. PROSTATE, BIOPSY, LEFT APEX: Benign prostatic tissue. ? J. PROSTATE, BIOPSY, LEFT LATERAL BASE: Benign prostatic tissue. ? K. PROSTATE, BIOPSY, LEFT LATERAL MID: Benign prostatic tissue. ? L. PROSTATE, BIOPSY, LEFT LATERAL APEX: Benign prostatic tissue. ? ? Prostate Cancer Biopsy Summary ? Number of cores examined: 12 Number of cores positive: 6 Highest Grade Group: 3 Highest % of core involvement: 90% Cribriform pattern 4: Present Intraductal carcinoma: Absent? ? LAB: WBC (k/uL) Date Value 08/24/2021 8.25 RBC (m/uL) Date Value 08/24/2021 4.00 (L) Hemoglobin (g/dL) Date Value 08/24/2021 10.0 (L) Hematocrit (%) Date Value 08/24/2021 31.7 (L) MCV (fL) Date Value 08/24/2021 79.3 (L) MCH (pg) Date Value 08/24/2021 25.0 (L) MCHC (g/dL) Date Value 08/24/2021 31.5 RDW-CV (%) Date Value 08/24/2021 19.3 (H) Platelet Count (k/uL) Date Value 08/24/2021 171 MPV (fL) Date Value 08/24/2021 8.6 (L) Neut% (%) Date Value 08/24/2021 77.7 Lymph% (%) Date Value 08/24/2021 14.8 Ferry% (%) Date Value 08/24/2021 6.1 Eosin% (%) Date Value 05/28/2021 1.5 Baso% (%) Date Value 08/24/2021 0.1 Abs Neut (k/uL) Date Value 08/24/2021 6.41 Abs Ferry (k/uL) Date Value 08/24/2021 0.50 Abs Eosin (k/uL) Date Value 08/24/2021 0.07 Abs Baso (k/uL) Date Value 08/24/2021 <0.03 Creatinine Date Value Ref Range Status 08/24/2021 0.98 0.73 - 1.22 mg/dL Final (more content not included)... [facility] 09-05-2021 History of Present illness Narrative Images from the original note were not included. [facility] [place] [facility] LOCATION: [address] [place] [address] ESTABLISHED PATIENT PATIENT INFO: Luther Castillo 66 year old Chief Complaint: Metastatic Prostate Cancer HPI 65-year-old gentleman with history of refractory anemia who present with an elevation PSA. Since a year ago his PSA has increased from 2 to 29. He has no urinary symptoms including hematuria or dysuria. He has no fever or chills. Prostate biopsy on April 19. MRI prostate showed cancer of prostate with capsular invasion some likely metastases to the pelvic bone region. His bone scan subsequently confirmed metastatic disease. Biopsy of prostate confirmed [place] 7, prostate cancer. He started androgen deprivation therapy with leuprolidse acetate 45 mg & denosumab 120 mg monthly on 04/26/2021 for metastatic (M1) prostate cancer. Current treatment: Zytiga and prednisone leuprolidse acetate 45 mg every 6 months & denosumab 120 mg monthly Interim history: He is doing well with androgen ablation therapy with Zytiga and prednisone. Patient has no increased fatigue, bone pain or hot flashes since he started this treatment. He has no fever, chills or dysuria. He denied hematuria, polyuria or polydipsia. His blood sugar nonfasting was 120. He has no nausea, vomiting or diarrhea. No breast swelling or tenderness. He has mild arthritic pain. 1-Duration: 2021 2-Location: prostate 3-Severity: N/A 4-Quality: Not applicable 5-Context: N/A 6-Timing: N/A 7-Modifying factors: No treatment prior to referral 8-Associated signs & symptoms: no additional symptoms No question data found. PATHOLOGY: FINAL DIAGNOSIS A. PROSTATE, BIOPSY, RIGHT BASE: Prostatic adenocarcinoma, [place] score 3+4=7 (Grade group 2), involving 60% of one core (8 mm tumor length). - Percentage of Rasheed pattern 4 = 20%. - Expansile cribriform morphology is present. B. PROSTATE, BIOPSY, RIGHT MID: Prostatic adenocarcinoma, [place] score 4+3=7 (Grade group 3), involving 90% of one core (10 mm tumor length). - Percentage of Rasheed pattern 4 = 90%. - Expansile cribriform morphology is present. C. PROSTATE, BIOPSY, RIGHT APEX: Prostatic adenocarcinoma, [place] score 3+4=7 (Grade group 2), involving 35% of one core (3 mm tumor length). - Percentage of [place] pattern 4 = 5%. - Cribriform morphology is absent. D. PROSTATE, BIOPSY, RIGHT LATERAL BASE: High-grade prostatic intraepithelial neoplasia. E. PROSTATE, BIOPSY, RIGHT LATERAL MID: Prostatic adenocarcinoma, Rasheed score 3+4=7 (Grade group 2), involving 85% of one core (10 mm tumor length). - Percentage of Rasheed pattern 4 = 10%. - Definitive cribriform morphology is absent. F. PROSTATE, BIOPSY, RIGHT LATERAL APEX: Prostatic adenocarcinoma, [place] score 3+4=7 (Grade group 2), involving 50% of one core (6.5 mm tumor length). - Percentage of Rasheed pattern 4 = 5%. - Cribriform morphology is absent. G. PROSTATE, BIOPSY, LEFT BASE: Prostatic adenocarcinoma, [place] score 3+3=6 (Grade group 1), involving 4% of one core (0.5 mm tumor length). Separate focus with atypical small acinar proliferation. H. PROSTATE, BIOPSY, LEFT MID: Benign prostatic tissue. I. PROSTATE, BIOPSY, LEFT APEX: Benign prostatic tissue. J. PROSTATE, BIOPSY, LEFT LATERAL BASE: Benign prostatic tissue. K. PROSTATE, BIOPSY, LEFT LATERAL MID: Benign prostatic tissue. L. PROSTATE, BIOPSY, LEFT LATERAL APEX: Benign prostatic tissue. Prostate Cancer Biopsy Summary Number of cores examined: 12 Number of cores positive: 6 Highest Grade Group: 3 Highest % of core involvement: 90% Cribriform pattern 4: Present Intraductal carcinoma: Absent LAB: WBC (k/uL) Date Value 08/24/2021 8.25 RBC (m/uL) Date Value 08/24/2021 4.00 (L) Hemoglobin (g/dL) Date Value 08/24/2021 10.0 (L) Hematocrit (%) Date Value 08/24/2021 31.7 (L) MCV (fL) Date Value 08/24/2021 79.3 (L) MCH (pg) Date Value 08/24/2021 25.0 (L) MCHC (g/dL) Date Value 08/24/2021 31.5 RDW-CV (%) Date Value 08/24/2021 19.3 (H) Platelet Count (k/uL) Date Value 08/24/2021 171 MPV (fL) Date Value 08/24/2021 8.6 (L) Neut% (%) Date Value 08/24/2021 77.7 Lymph% (%) Date Value 08/24/2021 14.8 Ferry% (%) Date Value 08/24/2021 6.1 Eosin% (%) Date Value 05/28/2021 1.5 Baso% (%) Date Value 08/24/2021 0.1 Abs Neut (k/uL) Date Value 08/24/2021 6.41 Abs Ferry (k/uL) Date Value 08/24/2021 0.50 Abs Eosin (k/uL) Date Value 08/24/2021 0.07 Abs Baso (k/uL) Date Value 08/24/2021 <0.03 Creatinine Date Value Ref Range Status 08/24/2021 0.98 0.73 - 1.22 mg/dL Final 05/28/2021 1.07 0.73 - 1.22 mg/dL Final 03/28/2021 1.01 0.73 - 1.22 mg/dL Final 03/13/2021 1.12 0.73 - 1.22 mg/dL Final PSA (ng/mL) Date Value 08/24/2021 0.07 05/28/2021 2.22 03/28/2021 29.34 03/13/2021 24.8 01/18/2020 2.52 URINE POC GLUCOSE UA (POCT) Negative 04/10/2021 BILIRUBIN UA (POCT) Negative 04/10/2021 KETONE UA (POCT) Negative 04/10/2021 SPECIFIC GRAVITY UA (POCT) 1.020 04/10/2021 HEMOGLOBIN/BLOOD UA (POCT) Negative 04/10/2021 PH UA (POCT) 7.0 04/10/2021 PROTEIN UA (POCT) Negative 04/10/2021 UROBILINOGEN UA (POCT) 0.2 04/10/2021 NITRITE UA (POCT) Negative 04/10/2021 LEUKOCYTES UA (POCT) Negative 04/10/2021 COLOR UA (POCT) Yellow 04/10/2021 CLARITY UA (POCT) Clear 04/10/2021 IMAGING: None No imaging to review. ALLERGIES: ALLERGIES Allergen Reactions Envirornmental [Oth* Intolerance MEDICATIONS: abiraterone 250 mg tablet TAKE 4 TABLETS (1,000MG) BY MOUTH ONCE DAILY ON AN EMPTY STOMACH 1 HOUR BEFORE OR 2 HOURS AFTER A MEAL tamsulosin (FLOMAX) 0.4 mg Take 1 capsule by mouth once daily. predniSONE (DELTASONE) 5 mg tablet Take 1 tablet by mouth twice daily. calcium carbonate/vitamin D3 (CALCIUM + D ORAL) Take 1 tablet by mouth twice daily. leuprolide acetate (ELIGARD SUBCUTANEOUS) Inject subcutaneously once every 6 months. denosumab (XGEVA SUBCUTANEOUS) Inject subcutaneously once every month. iv contrast (will be provided with radiology test) MRI Prostate Inject, intravenously, once for 1 dose. No IV access, insert saline lock prior to the beginning of sedation, infusion, injection of imaging exam. Discontinue saline lock post exam. If Pt. has a central line or IVAD, may access for administration according to line specific nursing protocol. Once exam is complete flush line and de-access according to line specific nursing protocol in the MR contrast administration guidelines link. 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 HEAD & NECK: No blurred vision or Sjogren's syndrome CARDIOVASCULAR: NO CHEST PAIN, PALPITATIONS, ANKLE EDEMA RESPIRATORY: No chronic cough, wheezing, dyspnea, hemoptysis. MUSCULOSKELETAL: NO CHRONIC BACK PAIN, ARTHRITIS, CHRONIC NECK PAIN SKIN: NO VARICOSE VEINS, RASH, ABNORMAL ITCHING BLOOD/LYMPHATIC: No easy bleeding, easy bruising, transfusion Hx NEUROLOGICAL: NO HEADACHES, NUMBNESS, SEIZURES, STROKE PSYCHIATRIC: No depression or inordinate anxiety The remainder of the ROS was negative. PHYSICAL EXAMINATION BP 113/60 Ht 172.7 cm (5' 8) Wt 69.4 kg (153 lb) BMI 23.26 kg/m General appearance: Well appearing, alert, in no acute distress and well-hydrated, well nourished Skin: Skin color, texture, turgor normal, no suspicious rashes or lesions Head: Normocephalic, no masses, lesions, tenderness or abnormalities Abdomen: Normal abdominal exam, Abdomen soft, non-tender. Bowel sounds normal. No masses, organomegaly Genitourinary: MALE EXAM: Exam NOT Indicated PVR: NA IMPRESSION/PLAN: 65-year-old gentleman with history of refractory anemia with new diagnosis of metastatic prostate cancer (M1) [place] score 7 & PSA 27; low-volume bone metastasis and no visceral metastasis. -Continue Zytiga 1,000mg in the morning & prednisone 5mg twice daily. -Continue Eligard every 6 months and denosumab monthly for bone metastasis -Continue Flomax I spent 30 minutes in the visit, with more than 50% of the total [id number] time of the visit in counseling / coordination of care. Sp Mckeon DO MBA documented in this encounter [facility] 09-04-2021 Instructions MARGARITA Inman - 09/04/2021 2:32 PM EDT You can resume Omeprazole. documented in this encounter [facility] 09-04-2021 History of Present illness Narrative Reason for visit: Luther Castillo is a 66 y.o. male who presents to our Medical Oncology Clinic for a second opinion for his metastatic prostate cancer. HPI: Mr. Castillo [facility]) urologist, Dr. Nixon for PSA rise from 2 in 01/2020 to 24.8 ng/ml in 03/2021. MRI prostate 04/04/2021 showed PI-RADS 5 lesion right peripheral mid apex with equivocal extra prostatic extension and likely metastases to the pelvic bone region. Prostate biopsy in 04/10/2021 adenocarcinoma of prostate, highest GS 4+3=7(group 3), 6/12 cores, 5-90% of specimen, +cribiform pattern,-intraductal. Bone scan on 04/11/2021 showed at least 4 foci in the bony pelvis most prominently in the left ischial tuberosity, scattered foci of uptake in the bilateral ribs most prominently in the right eighth lateral rib, heterogeneous uptake in the bilateral humeri, right greater than left concerning for metastatic disease. He started androgen deprivation therapy with Abiraterone/prednisone+ leuprolide acetate 45 mg every 6 months + denosumab 120 mg monthly in 04/2021. Most recently underwent repeat bone scan on 08/24/2021 with improvement in appearance of multiple osseous lesions. Most recent PSA 0.07 ng/mL on 08/24/2021. He follows [facility] hematology/oncology([facility] Agustin) Lillian Clemente MD for low grade MDS. Notes 05/29/2021 indicate now also following him for his metastatic prostate cancer. Presents today with his and son for a second opinion in his care. He reports having fatigue but remains active. He denies having any fevers, chills, dysuria, or hematuria. He reports worsening urinary frequency and nocturia since starting ADT. He denies having any pain. He reports having hot flashes that are tolerable. PSA History (ng/mL): 08/24/2021 0.07 Early Zytiga/Prednisone Bone Scan: improvement in appearance of multiple osseous lesions 05/28/2020 2.22 04/11/2021 Bone Scan: + metastatic disease. Started Lupron (6 month inj)/early Zytiga/Prednisone. 04/10/2021 Prostate Bx: GS 4+3=7(group 3), 6/12 cores, 5-90% of specimen, +cribiform pattern,-intraductal. 03/28/2021 29.34 Past Medical History: He has a past medical history of Anemia (12/07/2020), Arthritis (04/27/2015), Gastritis (03/10/2008), GERD (gastroesophageal reflux disease), Hemorrhoids, internal (03/06/2012), History of cancer, Lumbar degenerative disc disease (07/13/2013), Neuritis (07/13/2013), Solar lentigo (09/30/2012), Spinal stenosis of lumbar region (04/20/2013), and Vasovagal reaction (10/09/2016). Past Surgical History: He has a past surgical history that includes tonsillectomy (1976); release carpal tunnel (Left, 10/05/2002); arthroscopy shoulder w/ rotator cuff repair (Right, 10/11/2016); bx prostate needle or punch (04/2021); and colonoscopy diagnostic (2014). Social History: He reports that he quit smoking about 48 years ago. His smoking use included cigarettes. He has a 0.63 pack-year smoking history. He has never used smokeless tobacco. He reports current alcohol use of about 3.0 standard drinks of alcohol per week. No history on file for drug use. Family History: He family history includes Colorectal Cancer in his sister; Myocardial Infarction in his maternal grandfather; No known problems in his daughter, mother, sister, son, and son; Prostate Cancer in his father, paternal cousin, paternal cousin, paternal grandfather, and paternal uncle. Family Status Relation Name Status Mother Father age 91 Sister Alive Sister Alive [facility] MGF (Not Specified) PGF Son Alive Son Alive Deidre Alive Pat Cousin Alive Pat Cousin Alive Current Medications: Current Outpatient Medications Medication Sig abiraterone acetate 250 MG tablet Take 1,000 mg by mouth daily. Take 4 (250 mg) tabs once daily on an empty stomach Calcium Carb-Cholecalciferol (Calcium 500 + D) 500-125 MG-UNIT tablet Take 1 tablet by mouth 2 times daily. cimetidine (Tagamet HB) 200 MG tablet Take 200 mg by mouth 2 times daily. DENOSUMAB SC Inject under the skin every 30 days. Last dose August 16, 2021 LEUPROLIDE ACETATE, 6 MONTH, SC Inject under the skin every 6 months. May 05/2022 predniSONE 5 MG tablet Take 5 mg by mouth 2 times daily. Tamsulosin HCl 0.4 MG capsule Take 0.4 mg by mouth daily. Allergies: Patient has no known allergies. Review of Systems Constitutional: No fevers or chills. Denies severe fatigue. Active. Skin: Negative for rash, itching and skin lesions. HENT: Negative Eyes: No eye pain. No diplopia. Cardiovascular: Negative for chest pain, dyspnea on exertion, palpitations, orthopnea. Respiratory: Negative for cough, hemoptysis and sputum production. Is not experiencing shortness of breath or wheezing. Gastrointestinal: Negative for nausea, vomiting, abdominal pain, diarrhea, constipation, blood in stool, melena and trouble swallowing. + heartburn/acid reflux Genitourinary: Negative for bladder incontinence, dysuria, urgency, polyuria, hematuria, flank pain and hesitancy. + increased urinary frequency. + nocturia voids every 1-1.5 hours. Musculoskeletal: Negative for myalgias, neck pain, back pain and joint pain. Extremities: Negative for leg pain, leg swelling . Neurological: Negative for dizziness, tremors, sensory change, focal weakness, seizures, loss of consciousness and headaches. Psychiatric: Negative for depression, severe anxiety, memory loss, insomnia, and substance abuse. Lymph/Heme: Negative for easily bruises / bleeds and lymph node swelling. Endocrine: + hot flashes. Physical Examination height is 1.727 m (5' 8) and weight is 69 kg (152 lb 3.2 oz). His oral temperature is 98.4 F (36.9 C). His blood pressure is 126/67 and his pulse is 98. His respiration is 16 and oxygen saturation is 95%. General Appearance: Alert and oriented x3, in no acute distress. ECOG PS: 0 HEENT: Head atraumatic, normocephalic. Neck: Supple, no thyromegaly, no lymphadenopathy. Lungs: Clear to auscultation bilaterally. No wheezes, rales or rhonchi. Normal respiratory effort. Cardiac: Normal S1, S2 . Rate and rhythm regular. No murmur, gallop or rub. GI: Abdomen is soft, nontender, nondistended, positive bowel sounds. : No CVA tenderness. Extremities: No cyanosis, clubbing or edema. Extremities are atraumatic. Neuro: CN 2-12 grossly intact Lymph: No cervical or supraclavicular adenopathy. Musculoskeletal: No tenderness with palpation of ribs or vertebrae. No joint inflammation or swelling. Psych: Pleasant affect. No sign of agitation . Skin: No rash, bruising or petechiae. No skin nodules. Diagnostic Tests: Please refer to HPI. Labs: No results found for: WBC, GRNLOCTYABS, HGB, HCT, MCV, PLATELET No results found for: SBANS No results found for: SODIUM, POTASSIUM, CHLORIDE, CO2, BUN, CREATSERUM, GFR, GLUCOSE, CALCIUM, BILITOTAL, BILIDIRECT, TP, ALBUMIN, ALKPHOS, ALT, AST, LDH No results found for: HCGQUANT, AFP, PSA, TESTOSTERONE No results found for: AFPTMRMKR Pathology: Prostate bx 04/10/2021: FINAL DIAGNOSIS A. PROSTATE, BIOPSY, RIGHT BASE: Prostatic adenocarcinoma, [place] score 3+4=7 (Grade group 2), involving 60% of one core (8 mm tumor length). - Percentage of [place] pattern 4 = 20%. - Expansile cribriform morphology is present. B. PROSTATE, BIOPSY, RIGHT MID: Prostatic adenocarcinoma, Rasheed score 4+3=7 (Grade group 3), involving 90% of one core (10 mm tumor length). - Percentage of Rasheed pattern 4 = 90%. - Expansile cribriform morphology is present. C. PROSTATE, BIOPSY, RIGHT APEX: Prostatic adenocarcinoma, Rasheed score 3+4=7 (Grade group 2), involving 35% of one core (3 mm tumor length). - Percentage of Rasheed pattern 4 = 5%. - Cribriform morphology is absent. D. PROSTATE, BIOPSY, RIGHT LATERAL BASE: High-grade prostatic intraepithelial neoplasia. E. PROSTATE, BIOPSY, RIGHT LATERAL MID: Prostatic adenocarcinoma, Rasheed score 3+4=7 (Grade group 2), involving 85% of one core (10 mm tumor length). - Percentage of [place] pattern 4 = 10%. - Definitive cribriform morphology is absent. F. PROSTATE, BIOPSY, RIGHT LATERAL APEX: Prostatic adenocarcinoma, Rasheed score 3+4=7 (Grade group 2), involving 50% of one core (6.5 mm tumor length). - Percentage of Rasheed pattern 4 = 5%. - Cribriform morphology is absent. G. PROSTATE, BIOPSY, LEFT BASE: Prostatic adenocarcinoma, Rasheed score 3+3=6 (Grade group 1), involving 4% of one core (0.5 mm tumor length). Separate focus with atypical small acinar proliferation. H. PROSTATE, BIOPSY, LEFT MID: Benign prostatic tissue. I. PROSTATE, BIOPSY, LEFT APEX: Benign prostatic tissue. J. PROSTATE, BIOPSY, LEFT LATERAL BASE: Benign prostatic tissue. K. PROSTATE, BIOPSY, LEFT LATERAL MID: Benign prostatic tissue. L. PROSTATE, BIOPSY, LEFT LATERAL APEX: Benign prostatic tissue. Prostate Cancer Biopsy Summary Number of cores examined: 12 Number of cores positive: 6 Highest Grade Group: 3 Highest % of core involvement: 90% Cribriform pattern 4: Present Intraductal carcinoma: Absent Imaging: Bone scan 04/11/2021: IMPRESSION: Findings compatible with osteoblastic osseous metastases, as described. MRI prostate 04/04/2022: IMPRESSION: Right peripheral mid/apex PI-RADS 5 lesion with equivocal extraprostatic extension. No regional lymphadenopathy. Probable osseous metastases as described; consider correlation with nuclear medicine bone scan. 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 Most recent bone scan on 08/24/2021 with improvement in appearance of multiple osseous lesions. Most recent PSA 0.07 ng/mL on 08/24/2021. - Tolerating treatment well with manageable fatigue and hot flashes. - Continue early Zytiga/Prednisone + Lupron. - Recommend genetic testing d/t strong family history of prostate cancer. - RTC PRN. GERD: - Discussed with pharmacist ok to restart PPI. MARGARITA Benedict Attending addendum I saw and evaluated the patient with the advanced practice provider. I provided a substantive portion of the care for this patient. I personally performed all aspects of the medical decision making for this encounter. I have reviewed and verified this documentation and it accurately reflects our care. The nurse practitioner and I have spoken with the patient and provided written and verbal instructions for the patient. This is the first visit for Mr. Castillo who was recently diagnosed with de Tea high volume mCSPC. He is tolerating the ADT + early Zytiga/prednisone. We shared that this is considered a new standard of care. We discussed several issues regarding cancer in general and advanced prostate cancer in detail. I shared that we sometimes have investigational trials that are somewhat unique. If he is interested he is welcome to return to discuss. He will return as needed. Referral to cancer genetics. documented in this encounter [facility] 08-29-2021 Miscellaneous Notes SOCIAL WORK DISTRESS ASSESSMENT Referral made due to:Moderate distress Contact was made: By telephone call with patient Problems Addressed: Practical: N/A Family: Family health issues Emotional: Fears and Worry Spiritual Concerns: N/A Physical Problems: Changes in urination and Fatigue Exercising: No Stress Management: No Is the patient's distress related to a change in quality of life? No Patient with current Suicidal Ideation: No MENTAL HEALTH HISTORY: No Substance Use and Treatment History: denied History of Abuse: denied History of combat/trauma: No INTERVENTION/PLAN: Monitor patient response to treatment Communicate pertinent medical/psychosocial information to [facility] team Provide emotional support to patient/family Provided education on distress and screening process Continue follow up as needed Resources and Referrals: Internal: NA External: N/A Follow up appointment with JOSE in: [facility]IA spoke with patient on this day to monitor MH symptoms/assess patient needs following elevated distress screening. Patient reports he received promising news at his OV yesterday and is feeling much less distressed at this time. Patient denies any community resource needs at this time, but is agreeable to reaching out to this office if that changes. Assigned SW listed in Care Team tab: Yes RAJ Feliz Assessment Completed documented in this encounter [facility] 08-28-2021 History of Present illness Narrative PATIENT NAME: Luther Castillo. CLINIC NO: [id number]. ATTENDING PHYSICIAN: Lillian Clemente MD. DATE OF SERVICE: 08/28/2021. 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 Since a year ago his PSA has increased from 2 to 29. He has no urinary symptoms including hematuria or dysuria. He has no fever or chills. He saw urology, Dr. Varghese on April 10 and subsequent prostate biopsy on April 19. MRI prostate showed cancer of prostate with capsular invasion some likely metastases to the pelvic bone region. His bone scan subsequently confirmed metastatic disease. Biopsy of prostate confirmed Rasheed 7, prostate cancer. He started androgen deprivation therapy with leuprolidse acetate 45 mg & denosumab 120 mg monthly on 04/26/2021 for metastatic (M1) prostate cancer. Current treatment: Zytiga and prednisone leuprolidse acetate 45 mg every 6 months & denosumab 120 mg monthly Interim history: He is doing well with androgen ablation therapy with Zytiga and prednisone. Patient has no increased fatigue, bone pain or hot flashes since he started this treatment. He has no fever, chills or dysuria. He denied hematuria, polyuria or polydipsia. His blood sugar nonfasting was 120. He has no nausea, vomiting or diarrhea. No breast swelling or tenderness. He has mild arthritic pain. All medications & allergies updated and reviewed by me. REVIEW OF SYSTEMS: CONSTITUTIONAL: No fevers, chills, nightsweats, unintended weight loss HEENT: Denies frequent or severe heaches, nasal congestion/sinus symptoms, problematic allergy problems. EYES: No diplopia or blurry vision. CARDIOVASCULAR: No chest pain, dyspnea, palpitations, orthopnea, PND, ankle edema. PULM: No dyspnea, unexplained cough. GI: No dysphagia/odynophagia, problematic reflux, constipation, diarrhea, changes in stool habits, hematochezia, melena. : No new urinary complaints, including dysuria, gross hematuria or pyuria. NEURO: No new balance problems, peripheral weakness/paresthesias or numbness of concern. MUSC-SKEL: No new joint pain, swelling, or erythema. PSY: No concerns regarding depression, anxiety or panic. INTEGUMENTARY: No new skin changes (rash, new or changing mole, new growth) PHYSICAL EXAMINATION: Performance status 90% BP 100/55 Pulse 95 Temp (Src) 97.7 (Temporal) Wt 153 lb 8 oz (69.6kg) HEENT: Head is normocephalic, atraumatic. Sclerae white, conjunctivae pink. PEERL. EOMs are intact. Oropharynx is benign. LYMPHATICS: There is no palpable adenopathy in the neck, supraclavicular region, axillae, or groin. LUNGS: Lungs are clear to percussion and auscultation. HEART: Heart is normal without murmurs, gallops, or rubs. ABDOMEN: Soft and nontender without organomegaly. No masses can be palpated. EXTREMITIES: Are without edema. NEUROLOGIC: Exam is physiologic LABS: Component Latest Ref Rng & Units 08/24/2021 WBC 3.70 - 11.00 k/uL 8.25 RBC 4.20 - 6.00 m/uL 4.00 (L) Hemoglobin 13.0 - 17.0 g/dL 10.0 (L) Hematocrit 39.0 - 51.0 % 31.7 (L) MCV 80.0 - 100.0 fL 79.3 (L) MCH 26.0 - 34.0 pg 25.0 (L) MCHC 30.5 - 36.0 g/dL 31.5 RDW-CV 11.5 - 15.0 % 19.3 (H) Platelet Count 150 - 400 k/uL 171 MPV 9.0 - 12.7 fL 8.6 (L) Neut% % 77.7 Abs Neut (ANC) 1.45 - 7.50 k/uL 6.41 Lymph% % 14.8 Abs Lymph 1.00 - 4.00 k/uL 1.22 Ferry% % 6.1 Abs Ferry <0.87 k/uL 0.50 Eosin% % 0.8 Abs Eosin <0.46 k/uL 0.07 Baso% % 0.1 Abs Baso <0.11 k/uL <0.03 Immature Gran % % 0.5 IMMATURE GRANS (ABS) <0.10 k/uL 0.04 NRBC /100 WBC 0.0 Absolute nRBC <0.01 k/uL <0.01 DTYPE Auto Component Latest Ref Rng & Units 08/24/2021 Protein, Total 6.3 - 8.0 g/dL 6.8 Albumin 3.9 - 4.9 g/dL 4.1 Calcium 8.5 - 10.2 mg/dL 9.0 Bilirubin, Total 0.2 - 1.3 mg/dL 0.6 Alkaline Phosphatase 38 - 113 U/L 82 AST 14 - 40 U/L 25 ALT 10 - 54 U/L 25 Glucose 74 - 99 mg/dL 98 BUN 9 - 24 mg/dL 25 (H) Creatinine 0.73 - 1.22 mg/dL 0.98 Sodium 136 - 144 mmol/L 138 Potassium 3.7 - 5.1 mmol/L 3.9 Chloride 97 - 105 mmol/L 101 CO2 22 - 30 mmol/L 25 Anion Gap 9 - 18 mmol/L 12 eGFR >=60 mL/min/1.73m 84 Component Latest Ref Rng & Units 03/13/2021 05/28/2021 08/24/2021 PSA <2.60 ng/mL 24.8 (H) 2.22 0.07 BONE SCAN: Scintigraphic improvement in appearance of multiple osseous lesions since 04/11/2021. Probable degenerative changes, as noted. No new scintigraphic osseous abnormalities identified. ASSESSMENT: 65-year-old gentleman with history of refractory anemia with new diagnosis of metastatic prostate cancer (M1) [place] score 7 & PSA 27; low-volume bone metastasis and no visceral metastasis. 1) metastatic prostate cancer -He is doing well and clinically responding to androgen deprivation therapy 2) urinary urgency and nocturia -No evidence of hyperglycemia/diabetes or urinary tract infection 3) low-grade MDS -CBC essentially unchanged with no worsening anemia or fatigue on treatment. PLAN: -Continue Zytiga 1,000mg in the morning & prednisone 5mg twice daily. -Continue Eligard every 6 months and denosumab monthly for bone metastasis & follow-up with urology regarding urinary symptoms if persists. -Return in 6 months for his follow-up of refractory anemia and metastatic prostate cancer. -Repeat CBC, CMP & PSA every 3 months, and iron study OV in 6 months. I spent 30 minutes in the visit, with more than 50% of the total [id number] time of the visit in counseling / coordination of care. Portions of this documentation were copied and pasted from previous office visit notes in order to provide a cohesive continuity of the history. The note has been reviewed and edited and updated as necessary. Lillian Clemente MD. ELECTRONICALLY SIGNED Cc: Dr. Arsalan Mckeon DO documented in this encounter [facility] 08-24-2021 History of Present illness Narrative RADIOLOGY SERVICE PROGRESS NOTE SERVICE DATE: 08/24/2021 SERVICE TIME: 09:35 AM PATIENT IDENTITY VERIFICATION COMPLETED USING TWO (2) STANDARD IDENTIFIERS: Name and Date of confirmed by patient verbally FALL SCREENING: Has the patient had 2 falls in the last year or 1 fall with injury or currently using an Ambulatory Assistive Device (Walker, Cane, Wheelchair, Crutches, etc.)? No PATIENT GENDER DATA: .male ALLERGIES: Reviewed and unchanged MEDICATIONS REVIEWED: No PATIENT RELEVANT IMPLANT DATA REVIEWED: Not Applicable CREATININE: Creatinine Date Value Ref Range Status 08/24/2021 0.98 0.73 - 1.22 mg/dL Final 05/28/2021 1.07 0.73 - 1.22 mg/dL Final 03/28/2021 1.01 0.73 - 1.22 mg/dL Final Estimated Glomerular Filtration Rate Date Value Ref Range Status 08/24/2021 84 >=60 mL/min/1.73m Final Comment: Estimated Glomerular Filtration Rate (eGFR) is calculated using the 2020 CKD-EPI creatinine equation. This equation utilizes serum creatinine, sex, and age as parameters. The creatinine assay has traceable calibration to isotope dilution-mass spectrometry. Refer to KDIGO guidelines for clinical interpretation. In patients with unstable renal function, e.g. those with acute kidney injury, the eGFR may not accurately reflect actual GFR. eGFR- Date Value Ref Range Status 05/28/2021 >60 Final P.O.C.T. RESULTS: N/A August 24, [address] PERFORMED: No IV SITE: Ambulatory: NM only - direct IV injection in the Right antecubital site POST EXAM PIV STATUS: Discontinued PROCEDURE TYPE: NM INJECT: Whole Body Bone Scan. 22.5 mCi Tc99m MDP. No other medications given.. ADMINISTRATION TIME: 09:40 PATIENT DISCHARGED TO: Ambulatory patient, left NM department area. A Diagnostic radioactive procedure has taken place, with no further precautions necessary other than routine body substance precautions. More information regarding radiation safety can be found using this link: [email or web address] SIGNATURE: NOAH Bradshaw) PATIENT NAME: Luther Castillo DATE: August 24, 2021 TIME: 12:52 PM PAGER/CONTACT #: documented in this encounter [facility] 08-16-2021 Nurse Note The patient is here for an injection of Xgeva Dose: 120 mg Route: Subcutaneous Lot# [id number] Expiration date Given without incident. Site: left arm Dr. Mckeon present in clinic at time of injection. The date due for the next injection is 1 month Patient education was given by nurse. Stephanie Duron RN documented in this encounter [facility] 07-25-2021 Miscellaneous Notes Mare I put the wrong provider for this call he is a dr mckeon patient Patient phones requesting refills as follows: Pending Prescriptions Disp Refills TAMSULOSIN 0.4 MG CAPSULE 90 capsule 5 Sig: Take 1 capsule by mouth once daily. JESUS: No Please review and advise. Soraya Bishop Cma documented in this encounter [facility] 07-23-2021 Miscellaneous Notes Patient's request for medication is as follows Signed Prescriptions Disp Refills predniSONE (DELTASONE) 5 mg tablet 60 tablet 2 Sig: Take 1 tablet by mouth twice daily. JESUS: No Authorizing Provider: LILLIAN CLEMENTE Order entered - please phone pharmacy and notify patient. Lillian Clemente MD Physician: Dr. Clemente Call from patient requesting refill. Please E-Scribe Pending Prescriptions Disp Refills PREDNISONE 5 MG TABLET 60 tablet 2 Sig: Take 1 tablet by mouth twice daily. JESUS: No To Rudy mccrary [place] Natalya Dorsey RN documented in this encounter [facility] 07-23-2021 Miscellaneous Notes Patient has been identified by name and date of : Yes Last office visit in this department: Visit date not found RX INSTRUCTIONS: Pharmacy initiated this request. No need to notify patient. Patient phones requesting refills as follows: Pending Prescriptions Disp Refills ABIRATERONE 250 MG TABLET 120 tablet 0 JESUS: No Please review and advise. Nika Roach Pss documented in this encounter [facility] 07-19-2021 Nurse Note Patient presents for monthly XGEVA injection Injection in right upper abdomen Lot#[id number] Exp 08/2023 documented in this encounter [facility] 07-17-2021 Miscellaneous Notes NO AUTHORIZATION REQUIRED Per [facility] Registration, patient has Medicare Part B as primary insurance. No authorization required. Coverage of services is always based on medical necessity. Good for Sharmila on . Sent Email as well looking at status. Patient's insurance changed to Medicare A & B and that should not require a Prior Auth but doing a referral to make sure as patient has had insurance problems. Assigned referral. documented in this encounter [facility] 07-06-2021 Miscellaneous Notes Pharmacies updated in [place]. Thank you. Medication note added to [facility]. Sahara Mcneill LPN Patient calls and states that he has changed insurance and Romi will need to now go through [facility] ([phone]). He was told to call and let us know. He just received a refill and won't need another until the end of July. He would like a phone call when we do send out to [facility] so that he can reach out to them for more information about shipping/delivery. And, as an FYI, his retail pharmacy will change to [facility]. I asked him to remind us when he calls in for refills. Krista Dorsey RN documented in this encounter [facility] 07-05-2021 Miscellaneous Notes Patient's request for medication is as follows Signed Prescriptions Disp Refills abiraterone 250 mg tablet 120 tablet 0 Sig: TAKE 4 TABLETS BY MOUTH ONCE DAILY ON AN EMPTY STOMACH AT LEAST 1 HOUR BEFORE OR 2 HOURS AFTER EATING. JESUS: No Authorizing Provider: LILLIAN CLEMENTE Order entered - please phone pharmacy and notify patient. Lillian Clemente MD documented in this encounter [facility] 07-13-2013 History of Past i llness Narrative Problem Noted Date Resolved Date Lumbar spondylosis 07/13/2013 04/27/2015 Xerosis cutis 06/24/2013 07/18/2016 L-S radiculopathy 04/20/2013 07/13/2013 DDD (degenerative disc disease), lumbar 04/20/19 14 07/13/2013 Chronic actinic dermatitis 11/27/201207/18 Postinflammatory skin changes 11/27/2012 Hypopigmentation 09/30/2012 07/18/2016 Scars 09/30/2012 10/09/2016 Family history of malignant neoplasm of gastrointestinal tract 03/06/2012 10/09/2016 Family history of colon cancer 10/29/2011 0 10/09/2016 BPH loc w urin obs/LUTS 04/24/2006 01/04/20 17 documented as of this encounter (statuses as of 07/05/2021) [facility] History of Past illness Narrative* Problem Noted Date Resolved Date Lumbar spondylosis 07/13/2013 04/27/2015 Xerosis cutis 06/24/2013 07/18/2016 L-S radiculopathy 04/20/2013 07/13/2013 DDD (degenerative disc disease), lumbar 04/20/19 14 07/13/2013 Chronic actinic dermatitis 11/27/201207/18 Postinflammatory skin changes 11/27/2012 Hypopigmentation 09/30/2012 07/18/2016 Scars 09/30/2012 10/09/2016 Family history of malignant neoplasm of gastrointestinal tract 03/06/2012 10/09/2016 Family history of colon cancer 10/29/2011 0 10/09/2016 BPH loc w urin obs/LUTS 04/24/2006 01/04/20 17 documented as of this encounter (statuses as of 07/06/2021) [facility] of [facility] illness Narrative* Problem Noted Date Resolved Date Lumbar spondylosis 07/13/2013 04/27/2015 Xerosis cutis 06/24/2013 07/18/2016 L-S radiculopathy 04/20/2013 07/13/2013 DDD (degenerative disc disease), lumbar 04/20/19 14 07/13/2013 Chronic actinic dermatitis 11/27/201207/18 Postinflammatory skin changes 11/27/2012 Hypopigmentation 09/30/2012 07/18/2016 Scars 09/30/2012 10/09/2016 Family history of malignant neoplasm of gastrointestinal tract 03/06/2012 10/09/2016 Family history of colon cancer 10/29/2011 0 10/09/2016 BPH loc w urin obs/LUTS 04/24/2006 01/04/20 17 documented as of this encounter (statuses as of 07/17/2021) [facility] of [facility] illness Narrative* Problem Noted Date Resolved Date Lumbar spondylosis 07/13/2013 04/27/2015 Xerosis cutis 06/24/2013 07/18/2016 L-S radiculopathy 04/20/2013 07/13/2013 DDD (degenerative disc disease), lumbar 04/20/19 14 07/13/2013 Chronic actinic dermatitis 11/27/201207/18 Postinflammatory skin changes 11/27/2012 Hypopigmentation 09/30/2012 07/18/2016 Scars 09/30/2012 10/09/2016 Family history of malignant neoplasm of gastrointestinal tract 03/06/2012 10/09/2016 Family history of colon cancer 10/29/2011 0 10/09/2016 BPH loc w urin obs/LUTS 04/24/2006 01/04/20 17 documented as of this encounter (statuses as of 07/19/2021) [facility] illness Narrative* Problem Noted Date Resolved Date Lumbar spondylosis 07/13/2013 04/27/2015 Xerosis cutis 06/24/2013 07/18/2016 L-S radiculopathy 04/20/2013 07/13/2013 DDD (degenerative disc disease), lumbar 04/20/19 14 07/13/2013 Chronic actinic dermatitis 11/27/201207/18 Postinflammatory skin changes 11/27/2012 Hypopigmentation 09/30/2012 07/18/2016 Scars 09/30/2012 10/09/2016 Family history of malignant neoplasm of gastrointestinal tract 03/06/2012 10/09/2016 Family history of colon cancer 10/29/2011 0 10/09/2016 BPH loc w urin obs/LUTS 04/24/2006 01/04/20 17 documented as of this encounter (statuses as of 07/23/2021) [facility] Narrative* Problem Noted Date Resolved Date Lumbar spondylosis 07/13/2013 04/27/2015 Xerosis cutis 06/24/2013 07/18/2016 L-S radiculopathy 04/20/2013 07/13/2013 DDD (degenerative disc disease), lumbar 04/20/19 14 07/13/2013 Chronic actinic dermatitis 11/27/201207/18 Postinflammatory skin changes 11/27/2012 Hypopigmentation 09/30/2012 07/18/2016 Scars 09/30/2012 10/09/2016 Family history of malignant neoplasm of gastrointestinal tract 03/06/2012 10/09/2016 Family history of colon cancer 10/29/2011 0 10/09/2016 BPH loc w urin obs/LUTS 04/24/2006 01/04/20 17 documented as of this encounter (statuses as of 07/23/2021) [facility] Narrative* Problem Noted Date Resolved Date Lumbar spondylosis 07/13/2013 04/27/2015 Xerosis cutis 06/24/2013 07/18/2016 L-S radiculopathy 04/20/2013 07/13/2013 DDD (degenerative disc disease), lumbar 04/20/19 14 07/13/2013 Chronic actinic dermatitis 11/27/201207/18 Postinflammatory skin changes 11/27/2012 Hypopigmentation 09/30/2012 07/18/2016 Scars 09/30/2012 10/09/2016 Family history of malignant neoplasm of gastrointestinal tract 03/06/2012 10/09/2016 Family history of colon cancer 10/29/2011 0 10/09/2016 BPH loc w urin obs/LUTS 04/24/2006 01/04/20 17 documented as of this encounter (statuses as of 07/24/2021) [facility] Narrative* Problem Noted Date Resolved Date Lumbar spondylosis 07/13/2013 04/27/2015 Xerosis cutis 06/24/2013 07/18/2016 L-S radiculopathy 04/20/2013 07/13/2013 DDD (degenerative disc disease), lumbar 04/20/19 14 07/13/2013 Chronic actinic dermatitis 11/27/201207/18 Postinflammatory skin changes 11/27/2012 Hypopigmentation 09/30/2012 07/18/2016 Scars 09/30/2012 10/09/2016 Family history of malignant neoplasm of gastrointestinal tract 03/06/2012 10/09/2016 Family history of colon cancer 10/29/2011 0 10/09/2016 BPH loc w urin obs/LUTS 04/24/2006 01/04/20 17 documented as of this encounter (statuses as of 07/25/2021) [facility] Narrative* Problem Noted Date Resolved Date Lumbar spondylosis 07/13/2013 04/27/2015 Xerosis cutis 06/24/2013 07/18/2016 L-S radiculopathy 04/20/2013 07/13/2013 DDD (degenerative disc disease), lumbar 04/20/19 14 07/13/2013 Chronic actinic dermatitis 11/27/201207/18 Postinflammatory skin changes 11/27/2012 Hypopigmentation 09/30/2012 07/18/2016 Scars 09/30/2012 10/09/2016 Family history of malignant neoplasm of gastrointestinal tract 03/06/2012 10/09/2016 Family history of colon cancer 10/29/2011 0 10/09/2016 BPH loc w urin obs/LUTS 04/24/2006 01/04/20 17 documented as of this encounter (statuses as of 08/16/2021) [facility] Narrative* Problem Noted Date Resolved Date Lumbar spondylosis 07/13/2013 04/27/2015 Xerosis cutis 06/24/2013 07/18/2016 L-S radiculopathy 04/20/2013 07/13/2013 DDD (degenerative disc disease), lumbar 04/20/19 14 07/13/2013 Chronic actinic dermatitis 11/27/201207/18 Postinflammatory skin changes 11/27/2012 Hypopigmentation 09/30/2012 07/18/2016 Scars 09/30/2012 10/09/2016 Family history of malignant neoplasm of gastrointestinal tract 03/06/2012 10/09/2016 Family history of colon cancer 10/29/2011 0 10/09/2016 BPH loc w urin obs/LUTS 04/24/2006 01/04/20 17 documented as of this encounter (statuses as of 08/25/2021) [facility] Narrative* Problem Noted Date Resolved Date Lumbar spondylosis 07/13/2013 04/27/2015 Xerosis cutis 06/24/2013 07/18/2016 L-S radiculopathy 04/20/2013 07/13/2013 DDD (degenerative disc disease), lumbar 04/20/19 14 07/13/2013 Chronic actinic dermatitis 11/27/201207/18 Postinflammatory skin changes 11/27/2012 Hypopigmentation 09/30/2012 07/18/2016 Scars 09/30/2012 10/09/2016 Family history of malignant neoplasm of gastrointestinal tract 03/06/2012 10/09/2016 Family history of colon cancer 10/29/2011 0 10/09/2016 BPH loc w urin obs/LUTS 04/24/2006 01/04/20 17 documented as of this encounter (statuses as of 08/25/2021) [facility] Narrative* Problem Noted Date Resolved Date Lumbar spondylosis 07/13/2013 04/27/2015 Xerosis cutis 06/24/2013 07/18/2016 L-S radiculopathy 04/20/2013 07/13/2013 DDD (degenerative disc disease), lumbar 04/20/19 14 07/13/2013 Chronic actinic dermatitis 11/27/201207/18 Postinflammatory skin changes 11/27/2012 Hypopigmentation 09/30/2012 07/18/2016 Scars 09/30/2012 10/09/2016 Family history of malignant neoplasm of gastrointestinal tract 03/06/2012 10/09/2016 Family history of colon cancer 10/29/2011 0 10/09/2016 BPH loc w urin obs/LUTS 04/24/2006 01/04/20 17 documented as of this encounter (statuses as of 08/29/2021) [facility] Narrative* Problem Noted Date Resolved Date Lumbar spondylosis 07/13/2013 04/27/2015 Xerosis cutis 06/24/2013 07/18/2016 L-S radiculopathy 04/20/2013 07/13/2013 DDD (degenerative disc disease), lumbar 04/20/19 14 07/13/2013 Chronic actinic dermatitis 11/27/201207/18 Postinflammatory skin changes 11/27/2012 Hypopigmentation 09/30/2012 07/18/2016 Scars 09/30/2012 10/09/2016 Family history of malignant neoplasm of gastrointestinal tract 03/06/2012 10/09/2016 Family history of colon cancer 10/29/2011 0 10/09/2016 BPH loc w urin obs/LUTS 04/24/2006 01/04/20 17 documented as of this encounter (statuses as of 08/29/2021) [facility] Narrative* Problem Noted Date Resolved Date Lumbar spondylosis 07/13/2013 04/27/2015 Xerosis cutis 06/24/2013 07/18/2016 L-S radiculopathy 04/20/2013 07/13/2013 DDD (degenerative disc disease), lumbar 04/20/19 14 07/13/2013 Chronic actinic dermatitis 11/27/201207/18 Postinflammatory skin changes 11/27/2012 Hypopigmentation 09/30/2012 07/18/2016 Scars 09/30/2012 10/09/2016 Family history of malignant neoplasm of gastrointestinal tract 03/06/2012 10/09/2016 Family history of colon cancer 10/29/2011 0 10/09/2016 BPH loc w urin obs/LUTS 04/24/2006 01/04/20 17 documented as of this encounter (statuses as of 09/05/2021) [facility] Narrative* Problem Noted Date Resolved Date Lumbar spondylosis 07/13/2013 04/27/2015 Xerosis cutis 06/24/2013 07/18/2016 L-S radiculopathy 04/20/2013 07/13/2013 DDD (degenerative disc disease), lumbar 04/20/19 14 07/13/2013 Chronic actinic dermatitis 11/27/201207/18 Postinflammatory skin changes 11/27/2012 Hypopigmentation 09/30/2012 07/18/2016 Scars 09/30/2012 10/09/2016 Family history of malignant neoplasm of gastrointestinal tract 03/06/2012 10/09/2016 Family history of colon cancer 10/29/2011 0 10/09/2016 BPH loc w urin obs/LUTS 04/24/2006 01/04/20 17 documented as of this encounter (statuses as of 10/05/2021) [facility] Narrative* Problem Noted Date Resolved Date Lumbar spondylosis 07/13/2013 04/27/2015 Xerosis cutis 06/24/2013 07/18/2016 L-S radiculopathy 04/20/2013 07/13/2013 DDD (degenerative disc disease), lumbar 04/20/19 14 07/13/2013 Chronic actinic dermatitis 11/27/201207/18 Postinflammatory skin changes 11/27/2012 Hypopigmentation 09/30/2012 07/18/2016 Scars 09/30/2012 10/09/2016 Family history of malignant neoplasm of gastrointestinal tract 03/06/2012 10/09/2016 Family history of colon cancer 10/29/2011 0 10/09/2016 BPH loc w urin obs/LUTS 04/24/2006 01/04/20 17 documented as of this encounter (statuses as of 10/11/2021) [facility]arrative* Problem Noted Date Resolved Date Lumbar spondylosis 07/13/2013 04/27/2015 Xerosis cutis 06/24/2013 07/18/2016 L-S radiculopathy 04/20/2013 07/13/2013 DDD (degenerative disc disease), lumbar 04/20/19 14 07/13/2013 Chronic actinic dermatitis 11/27/201207/18 Postinflammatory skin changes 11/27/2012 Hypopigmentation 09/30/2012 07/18/2016 Scars 09/30/2012 10/09/2016 Family history of malignant neoplasm of gastrointestinal tract 03/06/2012 10/09/2016 Family history of colon cancer 10/29/2011 0 10/09/2016 BPH loc w urin obs/LUTS 04/24/2006 01/04/20 17 documented as of this encounter (statuses as of 11/13/2021) [facility]04-[facility]2014 History of Past illness Narrative* Problem Noted Date Resolved Date Lumbar spondylosis 07/13/2013 04/27/2015 Xerosis cutis 06/24/2013 07/18/2016 L-S radiculopathy 04/20/2013 07/13/2013 DDD (degenerative disc disease), lumbar 04/20/19 14 07/13/2013 Chronic actinic dermatitis 11/27/201207/18 Postinflammatory skin changes 11/27/2012 Hypopigmentation 09/30/2012 07/18/2016 Scars 09/30/2012 10/09/2016 Family history of malignant neoplasm of gastrointestinal tract 03/06/2012 10/09/2016 Family history of colon cancer 10/29/2011 0 10/09/2016 BPH loc w urin obs/LUTS 04/24/2006 01/04/20 17 documented as of this encounter (statuses as of 11/15/2021) [facility] History of Past illness Narrative* Problem Noted Date Resolved Date Lumbar spondylosis 07/13/2013 04/27/2015 Xerosis cutis 06/24/2013 07/18/2016 L-S radiculopathy 04/20/2013 07/13/2013 DDD (degenerative disc disease), lumbar 04/20/19 14 07/13/2013 Chronic actinic dermatitis 11/27/201207/18 Postinflammatory skin changes 11/27/2012 Hypopigmentation 09/30/2012 07/18/2016 Scars 09/30/2012 10/09/2016 Family history of malignant neoplasm of gastrointestinal tract 03/06/2012 10/09/2016 Family history of colon cancer 10/29/2011 0 10/09/2016 BPH loc w urin obs/LUTS 04/24/2006 01/04/20 17 documented as of this encounter (statuses as of 11/23/2021) [facility] History of Past illness Narrative* Problem Noted Date Resolved Date Lumbar spondylosis 07/13/2013 04/27/2015 Xerosis cutis 06/24/2013 07/18/2016 L-S radiculopathy 04/20/2013 07/13/2013 DDD (degenerative disc disease), lumbar 04/20/19 14 07/13/2013 Chronic actinic dermatitis 11/27/201207/18 Postinflammatory skin changes 11/27/2012 Hypopigmentation 09/30/2012 07/18/2016 Scars 09/30/2012 10/09/2016 Family history of malignant neoplasm of gastrointestinal tract 03/06/2012 10/09/2016 Family history of colon cancer 10/29/2011 0 10/09/2016 BPH loc w urin obs/LUTS 04/24/2006 01/04/20 17 documented as of this encounter (statuses as of 12/13/2021) [facility] History of Past illness Narrative* Problem Noted Date Resolved Date Lumbar spondylosis 07/13/2013 04/27/2015 Xerosis cutis 06/24/2013 07/18/2016 L-S radiculopathy 04/20/2013 07/13/2013 DDD (degenerative disc disease), lumbar 04/20/19 14 07/13/2013 Chronic actinic dermatitis 11/27/201207/18 Postinflammatory skin changes 11/27/2012 Hypopigmentation 09/30/2012 07/18/2016 Scars 09/30/2012 10/09/2016 Family history of malignant neoplasm of gastrointestinal tract 03/06/2012 10/09/2016 Family history of colon cancer 10/29/2011 0 10/09/2016 BPH loc w urin obs/LUTS 04/24/2006 01/04/20 17 documented as of this encounter (statuses as of 01/02/2022) [facility] History of Past illness Narrative* Problem Noted Date Resolved Date Lumbar spondylosis 07/13/2013 04/27/2015 Xerosis cutis 06/24/2013 07/18/2016 L-S radiculopathy 04/20/2013 07/13/2013 DDD (degenerative disc disease), lumbar 04/20/19 14 07/13/2013 Chronic actinic dermatitis 11/27/201207/18 Postinflammatory skin changes 11/27/2012 Hypopigmentation 09/30/2012 07/18/2016 Scars 09/30/2012 10/09/2016 Family history of malignant neoplasm of gastrointestinal tract 03/06/2012 10/09/2016 Family history of colon cancer 10/29/2011 0 10/09/2016 BPH loc w urin obs/LUTS 04/24/2006 01/04/20 17 documented as of this encounter (statuses as of 01/21/2022) [facility] History of Past illness Narrative* Problem Noted Date Resolved Date Lumbar spondylosis 07/13/2013 04/27/2015 Xerosis cutis 06/24/2013 07/18/2016 L-S radiculopathy 04/20/2013 07/13/2013 DDD (degenerative disc disease), lumbar 04/20/19 14 07/13/2013 Chronic actinic dermatitis 11/27/201207/18 Postinflammatory skin changes 11/27/2012 Hypopigmentation 09/30/2012 07/18/2016 Scars 09/30/2012 10/09/2016 Family history of malignant neoplasm of gastrointestinal tract 03/06/2012 10/09/2016 Family history of colon cancer 10/29/2011 0 10/09/2016 BPH loc w urin obs/LUTS 04/24/2006 01/04/20 17 documented as of this encounter (statuses as of 01/22/2022) [facility] History of Past illness Narrative* Problem Noted Date Resolved Date Lumbar spondylosis 07/13/2013 04/27/2015 Xerosis cutis 06/24/2013 07/18/2016 L-S radiculopathy 04/20/2013 07/13/2013 DDD (degenerative disc disease), lumbar 04/20/19 14 07/13/2013 Chronic actinic dermatitis 11/27/201207/18 Postinflammatory skin changes 11/27/2012 Hypopigmentation 09/30/2012 07/18/2016 Scars 09/30/2012 10/09/2016 Family history of malignant neoplasm of gastrointestinal tract 03/06/2012 10/09/2016 Family history of colon cancer 10/29/2011 0 10/09/2016 BPH loc w urin obs/LUTS 04/24/2006 01/04/20 17 documented as of this encounter (statuses as of 02/15/2022) [facility] History of Past illness Narrative* Problem Noted Date Resolved Date Lumbar spondylosis 07/13/2013 04/27/2015 Xerosis cutis 06/24/2013 07/18/2016 L-S radiculopathy 04/20/2013 07/13/2013 DDD (degenerative disc disease), lumbar 04/20/19 14 07/13/2013 Chronic actinic dermatitis 11/27/201207/18 Postinflammatory skin changes 11/27/2012 Hypopigmentation 09/30/2012 07/18/2016 Scars 09/30/2012 10/09/2016 Family history of malignant neoplasm of gastrointestinal tract 03/06/2012 10/09/2016 Family history of colon cancer 10/29/2011 0 10/09/2016 BPH loc w urin obs/LUTS 04/24/2006 01/04/20 17 documented as of this encounter (statuses as of 02/21/2022) [facility] History of Past illness Narrative* Problem Noted Date Resolved Date Lumbar spondylosis 07/13/2013 04/27/2015 Xerosis cutis 06/24/2013 07/18/2016 L-S radiculopathy 04/20/2013 07/13/2013 DDD (degenerative disc disease), lumbar 04/20/19 14 07/13/2013 Chronic actinic dermatitis 11/27/201207/18 Postinflammatory skin changes 11/27/2012 Hypopigmentation 09/30/2012 07/18/2016 Scars 09/30/2012 10/09/2016 Family history of malignant neoplasm of gastrointestinal tract 03/06/2012 10/09/2016 Family history of colon cancer 10/29/2011 0 10/09/2016 BPH loc w urin obs/LUTS 04/24/2006 01/04/20 17 documented as of this encounter (statuses as of 03/06/2022) [facility] History of Past illness Narrative* Problem Noted Date Resolved Date Lumbar spondylosis 07/13/2013 04/27/2015 Xerosis cutis 06/24/2013 07/18/2016 L-S radiculopathy 04/20/2013 07/13/2013 DDD (degenerative disc disease), lumbar 04/20/19 14 07/13/2013 Chronic actinic dermatitis 11/27/201207/18 Postinflammatory skin changes 11/27/2012 Hypopigmentation 09/30/2012 07/18/2016 Scars 09/30/2012 10/09/2016 Family history of malignant neoplasm of gastrointestinal tract 03/06/2012 10/09/2016 Family history of colon cancer 10/29/2011 0 10/09/2016 BPH loc w urin obs/LUTS 04/24/2006 01/04/20 17 documented as of this encounter (statuses as of 03/16/2022) [facility] History of Past illness Narrative* Problem Noted Date Resolved Date Lumbar spondylosis 07/13/2013 04/27/2015 Xerosis cutis 06/24/2013 07/18/2016 L-S radiculopathy 04/20/2013 07/13/2013 DDD (degenerative disc disease), lumbar 04/20/19 14 07/13/2013 Chronic actinic dermatitis 11/27/201207/18 Postinflammatory skin changes 11/27/2012 Hypopigmentation 09/30/2012 07/18/2016 Scars 09/30/2012 10/09/2016 Family history of malignant neoplasm of gastrointestinal tract 03/06/2012 10/09/2016 Family history of colon cancer 10/29/2011 0 10/09/2016 BPH loc w urin obs/LUTS 04/24/2006 01/04/20 17 documented as of this encounter (statuses as of 03/21/2022) [facility] History of Past illness Narrative* Problem Noted Date Resolved Date Lumbar spondylosis 07/13/2013 04/27/2015 Xerosis cutis 06/24/2013 07/18/2016 L-S radiculopathy 04/20/2013 07/13/2013 DDD (degenerative disc disease), lumbar 04/20/19 14 07/13/2013 Chronic actinic dermatitis 11/27/201207/18 Postinflammatory skin changes 11/27/2012 Hypopigmentation 09/30/2012 07/18/2016 Scars 09/30/2012 10/09/2016 Family history of malignant neoplasm of gastrointestinal tract 03/06/2012 10/09/2016 Family history of colon cancer 10/29/2011 0 10/09/2016 BPH loc w urin obs/LUTS 04/24/2006 01/04/20 17 documented as of this encounter (statuses as of 04/17/2022) [facility] History of Past illness Narrative* Problem Noted Date Resolved Date Lumbar spondylosis 07/13/2013 04/27/2015 Xerosis cutis 06/24/2013 07/18/2016 L-S radiculopathy 04/20/2013 07/13/2013 DDD (degenerative disc disease), lumbar 04/20/19 14 07/13/2013 Chronic actinic dermatitis 11/27/201207/18 Postinflammatory skin changes 11/27/2012 Hypopigmentation 09/30/2012 07/18/2016 Scars 09/30/2012 10/09/2016 Family history of malignant neoplasm of gastrointestinal tract 03/06/2012 10/09/2016 Family history of colon cancer 10/29/2011 0 10/09/2016 BPH loc w urin obs/LUTS 04/24/2006 01/04/20 17 documented as of this encounter (statuses as of 04/24/2022) [facility] History of Past illness Narrative* Problem Noted Date Resolved Date Lumbar spondylosis 07/13/2013 04/27/2015 Xerosis cutis 06/24/2013 07/18/2016 L-S radiculopathy 04/20/2013 07/13/2013 DDD (degenerative disc disease), lumbar 04/20/19 14 07/13/2013 Chronic actinic dermatitis 11/27/201207/18 Postinflammatory skin changes 11/27/2012 Hypopigmentation 09/30/2012 07/18/2016 Scars 09/30/2012 10/09/2016 Family history of malignant neoplasm of gastrointestinal tract 03/06/2012 10/09/2016 Family history of colon cancer 10/29/2011 0 10/09/2016 BPH loc w urin obs/LUTS 04/24/2006 01/04/20 17 documented as of this encounter (statuses as of 05/07/2022) [facility] History of Past illness Narrative* Problem Noted Date Resolved Date Lumbar spondylosis 07/13/2013 04/27/2015 Xerosis cutis 06/24/2013 07/18/2016 L-S radiculopathy 04/20/2013 07/13/2013 DDD (degenerative disc disease), lumbar 04/20/19 14 07/13/2013 Chronic actinic dermatitis 11/27/201207/18 Postinflammatory skin changes 11/27/2012 Hypopigmentation 09/30/2012 07/18/2016 Scars 09/30/2012 10/09/2016 Family history of malignant neoplasm of gastrointestinal tract 03/06/2012 10/09/2016 Family history of colon cancer 10/29/2011 0 10/09/2016 BPH loc w urin obs/LUTS 04/24/2006 01/04/20 17 documented as of this encounter (statuses as of 05/08/2022) [facility] History of Past illness Narrative* Problem Noted Date Resolved Date Lumbar spondylosis 07/13/2013 04/27/2015 Xerosis cutis 06/24/2013 07/18/2016 L-S radiculopathy 04/20/2013 07/13/2013 DDD (degenerative disc disease), lumbar 04/20/19 14 07/13/2013 Chronic actinic dermatitis 11/27/201207/18 Postinflammatory skin changes 11/27/2012 Hypopigmentation 09/30/2012 07/18/2016 Scars 09/30/2012 10/09/2016 Family history of malignant neoplasm of gastrointestinal tract 03/06/2012 10/09/2016 Family history of colon cancer 10/29/2011 0 10/09/2016 BPH loc w urin obs/LUTS 04/24/2006 01/04/20 17 documented as of this encounter (statuses as of 05/17/2022) [facility] History of Past illness Narrative* Problem Noted Date Resolved Date Lumbar spondylosis 07/13/2013 04/27/2015 Xerosis cutis 06/24/2013 07/18/2016 L-S radiculopathy 04/20/2013 07/13/2013 DDD (degenerative disc disease), lumbar 04/20/19 14 07/13/2013 Chronic actinic dermatitis 11/27/201207/18 Postinflammatory skin changes 11/27/2012 Hypopigmentation 09/30/2012 07/18/2016 Scars 09/30/2012 10/09/2016 Family history of malignant neoplasm of gastrointestinal tract 03/06/2012 10/09/2016 Family history of colon cancer 10/29/2011 0 10/09/2016 BPH loc w urin obs/LUTS 04/24/2006 01/04/20 17 documented as of this encounter (statuses as of 06/14/2022) [facility] History of Past illness Narrative* Problem Noted Date Resolved Date Lumbar spondylosis 07/13/2013 04/27/2015 Xerosis cutis 06/24/2013 07/18/2016 L-S radiculopathy 04/20/2013 07/13/2013 DDD (degenerative disc disease), lumbar 04/20/19 14 07/13/2013 Chronic actinic dermatitis 11/27/201207/18 Postinflammatory skin changes 11/27/2012 Hypopigmentation 09/30/2012 07/18/2016 Scars 09/30/2012 10/09/2016 Family history of malignant neoplasm of gastrointestinal tract 03/06/2012 10/09/2016 Family history of colon cancer 10/29/2011 0 10/09/2016 BPH loc w urin obs/LUTS 04/24/2006 01/04/20 17 documented as of this encounter (statuses as of 08/01/2022) [facility] History of Past illness Narrative* Problem Noted Date Resolved Date Lumbar spondylosis 07/13/2013 04/27/2015 Xerosis cutis 06/24/2013 07/18/2016 L-S radiculopathy 04/20/2013 07/13/2013 DDD (degenerative disc disease), lumbar 04/20/19 14 07/13/2013 Chronic actinic dermatitis 11/27/201207/18 Postinflammatory skin changes 11/27/2012 Hypopigmentation 09/30/2012 07/18/2016 Scars 09/30/2012 10/09/2016 Family history of malignant neoplasm of gastrointestinal tract 03/06/2012 10/09/2016 Family history of colon cancer 10/29/2011 0 10/09/2016 BPH loc w urin obs/LUTS 04/24/2006 01/04/20 17 documented as of this encounter (statuses as of 08/19/2022) [facility] History of Past illness Narrative* Problem Noted Date Resolved Date Lumbar spondylosis 07/13/2013 04/27/2015 Xerosis cutis 06/24/2013 07/18/2016 L-S radiculopathy 04/20/2013 07/13/2013 DDD (degenerative disc disease), lumbar 04/20/19 14 07/13/2013 Chronic actinic dermatitis 11/27/201207/18 Postinflammatory skin changes 11/27/2012 Hypopigmentation 09/30/2012 07/18/2016 Scars 09/30/2012 10/09/2016 Family history of malignant neoplasm of gastrointestinal tract 03/06/2012 10/09/2016 Family history of colon cancer 10/29/2011 0 10/09/2016 BPH loc w urin obs/LUTS 04/24/2006 01/04/20 17 documented as of this encounter (statuses as of 08/19/2022) [facility] History of Past illness Narrative* Problem Noted Date Resolved Date Lumbar spondylosis 07/13/2013 04/27/2015 Xerosis cutis 06/24/2013 07/18/2016 L-S radiculopathy 04/20/2013 07/13/2013 DDD (degenerative disc disease), lumbar 04/20/19 14 07/13/2013 Chronic actinic dermatitis 11/27/201207/18 Postinflammatory skin changes 11/27/2012 Hypopigmentation 09/30/2012 07/18/2016 Scars 09/30/2012 10/09/2016 Family history of malignant neoplasm of gastrointestinal tract 03/06/2012 10/09/2016 Family history of colon cancer 10/29/2011 0 10/09/2016 BPH loc w urin obs/LUTS 04/24/2006 01/04/20 17 documented as of this encounter (statuses as of 09/12/2022) [facility] History of Past illness Narrative* Problem Noted Date Resolved Date Lumbar spondylosis 07/13/2013 04/27/2015 Xerosis cutis 06/24/2013 07/18/2016 L-S radiculopathy 04/20/2013 07/13/2013 DDD (degenerative disc disease), lumbar 04/20/19 14 07/13/2013 Chronic actinic dermatitis 11/27/201207/18 Postinflammatory skin changes 11/27/2012 Hypopigmentation 09/30/2012 07/18/2016 Scars 09/30/2012 10/09/2016 Family history of malignant neoplasm of gastrointestinal tract 03/06/2012 10/09/2016 Family history of colon cancer 10/29/2011 0 10/09/2016 BPH loc w urin obs/LUTS 04/24/2006 01/04/20 17 documented as of this encounter (statuses as of 09/26/2022) [facility] History of Past illness Narrative* Problem Noted Date Resolved Date Lumbar spondylosis 07/13/2013 04/27/2015 Xerosis cutis 06/24/2013 07/18/2016 L-S radiculopathy 04/20/2013 07/13/2013 DDD (degenerative disc disease), lumbar 04/20/19 14 07/13/2013 Chronic actinic dermatitis 11/27/201207/18 Postinflammatory skin changes 11/27/2012 Hypopigmentation 09/30/2012 07/18/2016 Scars 09/30/2012 10/09/2016 Family history of malignant neoplasm of gastrointestinal tract 03/06/2012 10/09/2016 Family history of colon cancer 10/29/2011 0 10/09/2016 BPH loc w urin obs/LUTS 04/24/2006 01/04/20 17 documented as of this encounter (statuses as of 10/01/2022) [facility] History of Past illness Narrative* Problem Noted Date Diagnosed Date Resolved Date Lumbar spondylosis 07/13/2013 6 Xerosis cutis 06/24/2013 07/18/2016 L-S radiculopathy 04/20/2013 07/13/2013 DDD (degenerative disc disease), lumbar 04/20/2013 07/13/2013 Chronic actinic dermatitis 11/27/2012 0 07/18/2016 Postinflammatory skin changes 11/27/2012 07/18/2016 Hypopigmentation 09/30/2012 07/18/2016 Scars 09/30/2012 10/09/2016 Family history of malignant neoplasm of gastrointestinal tract 03/06/2012 10/09/2016 Family history of colon cancer 10/29/2011 10/09/2016 BPH loc w urin obs/LUTS 04/24/200612/07 documented as of this encounter (statuses as of 10/14/2022) [facility] History of Past illness Narrative* Problem Noted Date Diagnosed Date Resolved Date Lumbar spondylosis 07/13/2013 6 Xerosis cutis 06/24/2013 07/18/2016 L-S radiculopathy 04/20/2013 07/13/2013 DDD (degenerative disc disease), lumbar 04/20/2013 07/13/2013 Chronic actinic dermatitis 11/27/2012 0 07/18/2016 Postinflammatory skin changes 11/27/2012 07/18/2016 Hypopigmentation 09/30/2012 07/18/2016 Scars 09/30/2012 10/09/2016 Family history of malignant neoplasm of gastrointestinal tract 03/06/2012 10/09/2016 Family history of colon cancer 10/29/2011 10/09/2016 BPH loc w urin obs/LUTS 04/24/200612/07 documented as of this encounter (statuses as of 10/24/2022) [facility] History of Past illness Narrative* Problem Noted Date Diagnosed Date Resolved Date Lumbar spondylosis 07/13/2013 6 Xerosis cutis 06/24/2013 07/18/2016 L-S radiculopathy 04/20/2013 07/13/2013 DDD (degenerative disc disease), lumbar 04/20/2013 07/13/2013 Chronic actinic dermatitis 11/27/2012 0 07/18/2016 Postinflammatory skin changes 11/27/2012 07/18/2016 Hypopigmentation 09/30/2012 07/18/2016 Scars 09/30/2012 10/09/2016 Family history of malignant neoplasm of gastrointestinal tract 03/06/2012 10/09/2016 Family history of colon cancer 10/29/2011 10/09/2016 BPH loc w urin obs/LUTS 04/24/200612/07 documented as of this encounter (statuses as of 11/21/2022) [facility] History of Past illness Narrative* Problem Noted Date Diagnosed Date Resolved Date Lumbar spondylosis 07/13/2013 6 Xerosis cutis 06/24/2013 07/18/2016 L-S radiculopathy 04/20/2013 07/13/2013 DDD (degenerative disc disease), lumbar 04/20/2013 07/13/2013 Chronic actinic dermatitis 11/27/2012 0 07/18/2016 Postinflammatory skin changes 11/27/2012 07/18/2016 Hypopigmentation 09/30/2012 07/18/2016 Scars 09/30/2012 10/09/2016 Family history of malignant neoplasm of gastrointestinal tract 03/06/2012 10/09/2016 Family history of colon cancer 10/29/2011 10/09/2016 BPH loc w urin obs/LUTS 04/24/200612/07 documented as of this encounter (statuses as of 11/21/2022) [facility] History of Past illness Narrative* Problem Noted Date Diagnosed Date Resolved Date Lumbar spondylosis 07/13/2013 6 Xerosis cutis 06/24/2013 07/18/2016 L-S radiculopathy 04/20/2013 07/13/2013 DDD (degenerative disc disease), lumbar 04/20/2013 07/13/2013 Chronic actinic dermatitis 11/27/2012 0 07/18/2016 Postinflammatory skin changes 11/27/2012 07/18/2016 Hypopigmentation 09/30/2012 07/18/2016 Scars 09/30/2012 10/09/2016 Family history of malignant neoplasm of gastrointestinal tract 03/06/2012 10/09/2016 Family history of colon cancer 10/29/2011 10/09/2016 BPH loc w urin obs/LUTS 04/24/200612/07 documented as of this encounter (statuses as of 11/27/2022) [facility] History of Past illness Narrative* Problem Noted Date Diagnosed Date Resolved Date Lumbar spondylosis 07/13/2013 6 Xerosis cutis 06/24/2013 07/18/2016 L-S radiculopathy 04/20/2013 07/13/2013 DDD (degenerative disc disease), lumbar 04/20/2013 07/13/2013 Chronic actinic dermatitis 11/27/2012 0 07/18/2016 Postinflammatory skin changes 11/27/2012 07/18/2016 Hypopigmentation 09/30/2012 07/18/2016 Scars 09/30/2012 10/09/2016 Family history of malignant neoplasm of gastrointestinal tract 03/06/2012 10/09/2016 Family history of colon cancer 10/29/2011 10/09/2016 BPH loc w urin obs/LUTS 04/24/200612/07 documented as of this encounter (statuses as of 12/02/2022) [facility] History of Past illness Narrative* Problem Noted Date Diagnosed Date Resolved Date Lumbar spondylosis 07/13/2013 6 Xerosis cutis 06/24/2013 07/18/2016 L-S radiculopathy 04/20/2013 07/13/2013 DDD (degenerative disc disease), lumbar 04/20/2013 07/13/2013 Chronic actinic dermatitis 11/27/2012 0 07/18/2016 Postinflammatory skin changes 11/27/2012 07/18/2016 Hypopigmentation 09/30/2012 07/18/2016 Scars 09/30/2012 10/09/2016 Family history of malignant neoplasm of gastrointestinal tract 03/06/2012 10/09/2016 Family history of colon cancer 10/29/2011 10/09/2016 BPH loc w urin obs/LUTS 04/24/200612/07 documented as of this encounter (statuses as of 12/19/2022) [facility] History of Past illness Narrative* Problem Noted Date Diagnosed Date Resolved Date Lumbar spondylosis 07/13/2013 6 Xerosis cutis 06/24/2013 07/18/2016 L-S radiculopathy 04/20/2013 07/13/2013 DDD (degenerative disc disease), lumbar 04/20/2013 07/13/2013 Chronic actinic dermatitis 11/27/2012 0 07/18/2016 Postinflammatory skin changes 11/27/2012 07/18/2016 Hypopigmentation 09/30/2012 07/18/2016 Scars 09/30/2012 10/09/2016 Family history of malignant neoplasm of gastrointestinal tract 03/06/2012 10/09/2016 Family history of colon cancer 10/29/2011 10/09/2016 BPH loc w urin obs/LUTS 04/24/200612/07 documented as of this encounter (statuses as of 01/16/2023) [facility] of Past illness Narrative* Problem Noted Date Diagnosed Date Resolved Date Lumbar spondylosis 07/13/2013 6 Xerosis cutis 06/24/2013 07/18/2016 L-S radiculopathy 04/20/2013 07/13/2013 DDD (degenerative disc disease), lumbar 04/20/2013 07/13/2013 Chronic actinic dermatitis 11/27/2012 0 07/18/2016 Postinflammatory skin changes 11/27/2012 07/18/2016 Hypopigmentation 09/30/2012 07/18/2016 Scars 09/30/2012 10/09/2016 Family history of malignant neoplasm of gastrointestinal tract 03/06/2012 10/09/2016 Family history of colon cancer 10/29/2011 10/09/2016 BPH loc w urin obs/LUTS 04/24/200612/07 documented as of this encounter (statuses as of 01/16/2023) [facility] of Past illness Narrative* Problem Noted Date Diagnosed Date Resolved Date Lumbar spondylosis 07/13/2013 6 Xerosis cutis 06/24/2013 07/18/2016 L-S radiculopathy 04/20/2013 07/13/2013 DDD (degenerative disc disease), lumbar 04/20/2013 07/13/2013 Chronic actinic dermatitis 11/27/2012 0 07/18/2016 Postinflammatory skin changes 11/27/2012 07/18/2016 Hypopigmentation 09/30/2012 07/18/2016 Scars 09/30/2012 10/09/2016 Family history of malignant neoplasm of gastrointestinal tract 03/06/2012 10/09/2016 Family history of colon cancer 10/29/2011 10/09/2016 BPH loc w urin obs/LUTS 04/24/200612/07 documented as of this encounter (statuses as of 01/16/2023) [facility] of Past illness Narrative* Problem Noted Date Diagnosed Date Resolved Date Lumbar spondylosis 07/13/2013 6 Xerosis cutis 06/24/2013 07/18/2016 L-S radiculopathy 04/20/2013 07/13/2013 DDD (degenerative disc disease), lumbar 04/20/2013 07/13/2013 Chronic actinic dermatitis 11/27/2012 0 07/18/2016 Postinflammatory skin changes 11/27/2012 07/18/2016 Hypopigmentation 09/30/2012 07/18/2016 Scars 09/30/2012 10/09/2016 Family history of malignant neoplasm of gastrointestinal tract 03/06/2012 10/09/2016 Family history of colon cancer 10/29/2011 10/09/2016 BPH loc w urin obs/LUTS 04/24/200612/07 documented as of this encounter (statuses as of 01/21/2023) [facility] of Past illness Narrative* Problem Noted Date Diagnosed Date Resolved Date Lumbar spondylosis 07/13/2013 6 Xerosis cutis 06/24/2013 07/18/2016 L-S radiculopathy 04/20/2013 07/13/2013 DDD (degenerative disc disease), lumbar 04/20/2013 07/13/2013 Chronic actinic dermatitis 11/27/2012 0 07/18/2016 Postinflammatory skin changes 11/27/2012 07/18/2016 Hypopigmentation 09/30/2012 07/18/2016 Scars 09/30/2012 10/09/2016 Family history of malignant neoplasm of gastrointestinal tract 03/06/2012 10/09/2016 Family history of colon cancer 10/29/2011 10/09/2016 BPH loc w urin obs/LUTS 04/24/200612/07 documented as of this encounter (statuses as of 02/09/2023) [facility]2014 History of Past illness Narrative* Problem Noted Date Diagnosed Date Resolved Date Lumbar spondylosis 07/13/2013 6 Xerosis cutis 06/24/2013 07/18/2016 L-S radiculopathy 04/20/2013 07/13/2013 DDD (degenerative disc disease), lumbar 04/20/2013 07/13/2013 Chronic actinic dermatitis 11/27/2012 0 07/18/2016 Postinflammatory skin changes 11/27/2012 07/18/2016 Hypopigmentation 09/30/2012 07/18/2016 Scars 09/30/2012 10/09/2016 Family history of malignant neoplasm of gastrointestinal tract 03/06/2012 10/09/2016 Family history of colon cancer 10/29/2011 10/09/2016 BPH loc w urin obs/LUTS 04/24/200612/07 documented as of this encounter (statuses as of 02/13/2023) [facility] History of Past illness Narrative* Problem Noted Date Diagnosed Date Resolved Date Lumbar spondylosis 07/13/2013 6 Xerosis cutis 06/24/2013 07/18/2016 L-S radiculopathy 04/20/2013 07/13/2013 DDD (degenerative disc disease), lumbar 04/20/2013 07/13/2013 Chronic actinic dermatitis 11/27/2012 0 07/18/2016 Postinflammatory skin changes 11/27/2012 07/18/2016 Hypopigmentation 09/30/2012 07/18/2016 Scars 09/30/2012 10/09/2016 Family history of malignant neoplasm of gastrointestinal tract 03/06/2012 10/09/2016 Family history of colon cancer 10/29/2011 10/09/2016 BPH loc w urin obs/LUTS 04/24/200612/07 documented as of this encounter (statuses as of 02/19/2023) [facility] History of Past illness Narrative* Problem Noted Date Diagnosed Date Resolved Date Lumbar spondylosis 07/13/2013 6 Xerosis cutis 06/24/2013 07/18/2016 L-S radiculopathy 04/20/2013 07/13/2013 DDD (degenerative disc disease), lumbar 04/20/2013 07/13/2013 Chronic actinic dermatitis 11/27/2012 0 07/18/2016 Postinflammatory skin changes 11/27/2012 07/18/2016 Hypopigmentation 09/30/2012 07/18/2016 Scars 09/30/2012 10/09/2016 Family history of malignant neoplasm of gastrointestinal tract 03/06/2012 10/09/2016 Family history of colon cancer 10/29/2011 10/09/2016 BPH loc w urin obs/LUTS 04/24/200612/07 documented as of this encounter (statuses as of 03/13/2023) [facility] History of Past illness Narrative* Problem Noted Date Diagnosed Date Resolved Date Lumbar spondylosis 07/13/2013 6 Xerosis cutis 06/24/2013 07/18/2016 L-S radiculopathy 04/20/2013 07/13/2013 DDD (degenerative disc disease), lumbar 04/20/2013 07/13/2013 Chronic actinic dermatitis 11/27/2012 0 07/18/2016 Postinflammatory skin changes 11/27/2012 07/18/2016 Hypopigmentation 09/30/2012 07/18/2016 Scars 09/30/2012 10/09/2016 Family history of malignant neoplasm of gastrointestinal tract 03/06/2012 10/09/2016 Family history of colon cancer 10/29/2011 10/09/2016 BPH loc w urin obs/LUTS 04/24/200612/07 documented as of this encounter (statuses as of 03/18/2023) [facility] History of Past illness Narrative* Problem Noted Date Diagnosed Date Resolved Date Lumbar spondylosis 07/13/2013 6 Xerosis cutis 06/24/2013 07/18/2016 L-S radiculopathy 04/20/2013 07/13/2013 DDD (degenerative disc disease), lumbar 04/20/2013 07/13/2013 Chronic actinic dermatitis 11/27/2012 0 07/18/2016 Postinflammatory skin changes 11/27/2012 07/18/2016 Hypopigmentation 09/30/2012 07/18/2016 Scars 09/30/2012 10/09/2016 Family history of malignant neoplasm of gastrointestinal tract 03/06/2012 10/09/2016 Family history of colon cancer 10/29/2011 10/09/2016 BPH loc w urin obs/LUTS 04/24/200612/07 documented as of this encounter (statuses as of 03/19/2023) [facility] History of Past illness Narrative* Problem Noted Date Diagnosed Date Resolved Date Lumbar spondylosis 07/13/2013 6 Xerosis cutis 06/24/2013 07/18/2016 L-S radiculopathy 04/20/2013 07/13/2013 DDD (degenerative disc disease), lumbar 04/20/2013 07/13/2013 Chronic actinic dermatitis 11/27/2012 0 07/18/2016 Postinflammatory skin changes 11/27/2012 07/18/2016 Hypopigmentation 09/30/2012 07/18/2016 Scars 09/30/2012 10/09/2016 Family history of malignant neoplasm of gastrointestinal tract 03/06/2012 10/09/2016 Family history of colon cancer 10/29/2011 10/09/2016 BPH loc w urin obs/LUTS 04/24/200612/07 documented as of this encounter (statuses as of 03/28/2023) [facility] History of Past illness Narrative* Problem Noted Date Diagnosed Date Resolved Date Lumbar spondylosis 07/13/2013 6 Xerosis cutis 06/24/2013 07/18/2016 L-S radiculopathy 04/20/2013 07/13/2013 DDD (degenerative disc disease), lumbar 04/20/2013 07/13/2013 Chronic actinic dermatitis 11/27/2012 0 07/18/2016 Postinflammatory skin changes 11/27/2012 07/18/2016 Hypopigmentation 09/30/2012 07/18/2016 Scars 09/30/2012 10/09/2016 Family history of malignant neoplasm of gastrointestinal tract 03/06/2012 10/09/2016 Family history of colon cancer 10/29/2011 10/09/2016 BPH loc w urin obs/LUTS 04/24/200612/07 documented as of this encounter (statuses as of 05/08/2023) [facility] History of Past illness Narrative* Problem Noted Date Diagnosed Date Resolved Date Lumbar spondylosis 07/13/2013 6 Xerosis cutis 06/24/2013 07/18/2016 L-S radiculopathy 04/20/2013 07/13/2013 DDD (degenerative disc disease), lumbar 04/20/2013 07/13/2013 Chronic actinic dermatitis 11/27/2012 0 07/18/2016 Postinflammatory skin changes 11/27/2012 07/18/2016 Hypopigmentation 09/30/2012 07/18/2016 Scars 09/30/2012 10/09/2016 Family history of malignant neoplasm of gastrointestinal tract 03/06/2012 10/09/2016 Family history of colon cancer 10/29/2011 10/09/2016 BPH loc w urin obs/LUTS 04/24/200612/07 documented as of this encounter (statuses as of 05/16/2023) [facility] History of Past illness Narrative* Problem Noted Date Diagnosed Date Resolved Date Lumbar spondylosis 07/13/2013 6 Xerosis cutis 06/24/2013 07/18/2016 L-S radiculopathy 04/20/2013 07/13/2013 DDD (degenerative disc disease), lumbar 04/20/2013 07/13/2013 Chronic actinic dermatitis 11/27/2012 0 07/18/2016 Postinflammatory skin changes 11/27/2012 07/18/2016 Hypopigmentation 09/30/2012 07/18/2016 Scars 09/30/2012 10/09/2016 Family history of malignant neoplasm of gastrointestinal tract 03/06/2012 10/09/2016 Family history of colon cancer 10/29/2011 10/09/2016 BPH loc w urin obs/LUTS 04/24/200612/07 documented as of this encounter (statuses as of 06/05/2023) [facility] History of Past illness Narrative* Problem Noted Date Diagnosed Date Resolved Date Lumbar spondylosis 07/13/2013 6 Xerosis cutis 06/24/2013 07/18/2016 L-S radiculopathy 04/20/2013 07/13/2013 DDD (degenerative disc disease), lumbar 04/20/2013 07/13/2013 Chronic actinic dermatitis 11/27/2012 0 07/18/2016 Postinflammatory skin changes 11/27/2012 07/18/2016 Hypopigmentation 09/30/2012 07/18/2016 Scars 09/30/2012 10/09/2016 Family history of malignant neoplasm of gastrointestinal tract 03/06/2012 10/09/2016 Family history of colon cancer 10/29/2011 10/09/2016 BPH loc w urin obs/LUTS 04/24/200612/07 documented as of this encounter (statuses as of 06/11/2023) [facility] History of Past illness Narrative* Problem Noted Date Diagnosed Date Resolved Date Lumbar spondylosis 07/13/2013 6 Xerosis cutis 06/24/2013 07/18/2016 L-S radiculopathy 04/20/2013 07/13/2013 DDD (degenerative disc disease), lumbar 04/20/2013 07/13/2013 Chronic actinic dermatitis 11/27/2012 0 07/18/2016 Postinflammatory skin changes 11/27/2012 07/18/2016 Hypopigmentation 09/30/2012 07/18/2016 Scars 09/30/2012 10/09/2016 Family history of malignant neoplasm of gastrointestinal tract 03/06/2012 10/09/2016 Family history of colon cancer 10/29/2011 10/09/2016 BPH loc w urin obs/LUTS 04/24/200612/07 documented as of this encounter (statuses as of 06/12/2023) [facility] History of Past illness Narrative* Problem Noted Date Diagnosed Date Resolved Date Lumbar spondylosis 07/13/2013 6 Xerosis cutis 06/24/2013 07/18/2016 L-S radiculopathy 04/20/2013 07/13/2013 DDD (degenerative disc disease), lumbar 04/20/2013 07/13/2013 Chronic actinic dermatitis 11/27/2012 0 07/18/2016 Postinflammatory skin changes 11/27/2012 07/18/2016 Hypopigmentation 09/30/2012 07/18/2016 Scars 09/30/2012 10/09/2016 Family history of malignant neoplasm of gastrointestinal tract 03/06/2012 10/09/2016 Family history of colon cancer 10/29/2011 10/09/2016 BPH loc w urin obs/LUTS 04/24/200612/07 documented as of this encounter (statuses as of 06/16/2023) [facility] History of Past illness Narrative* Problem Noted Date Diagnosed Date Resolved Date Lumbar spondylosis 07/13/2013 6 Xerosis cutis 06/24/2013 07/18/2016 L-S radiculopathy 04/20/2013 07/13/2013 DDD (degenerative disc disease), lumbar 04/20/2013 07/13/2013 Chronic actinic dermatitis 11/27/2012 0 07/18/2016 Postinflammatory skin changes 11/27/2012 07/18/2016 Hypopigmentation 09/30/2012 07/18/2016 Scars 09/30/2012 10/09/2016 Family history of malignant neoplasm of gastrointestinal tract 03/06/2012 10/09/2016 Family history of colon cancer 10/29/2011 10/09/2016 BPH loc w urin obs/LUTS 04/24/200612/07 documented as of this encounter (statuses as of 06/18/2023) [facility] History of Past illness Narrative* Problem Noted Date Diagnosed Date Resolved Date Lumbar spondylosis 07/13/2013 6 Xerosis cutis 06/24/2013 07/18/2016 L-S radiculopathy 04/20/2013 07/13/2013 DDD (degenerative disc disease), lumbar 04/20/2013 07/13/2013 Chronic actinic dermatitis 11/27/2012 0 07/18/2016 Postinflammatory skin changes 11/27/2012 07/18/2016 Hypopigmentation 09/30/2012 07/18/2016 Scars 09/30/2012 10/09/2016 Family history of malignant neoplasm of gastrointestinal tract 03/06/2012 10/09/2016 Family history of colon cancer 10/29/2011 10/09/2016 BPH loc w urin obs/LUTS 04/24/200612/07 documented as of this encounter (statuses as of 06/18/2023) [facility] History of Past illness Narrative* Problem Noted Date Diagnosed Date Resolved Date Lumbar spondylosis 07/13/2013 6 Xerosis cutis 06/24/2013 07/18/2016 L-S radiculopathy 04/20/2013 07/13/2013 DDD (degenerative disc disease), lumbar 04/20/2013 07/13/2013 Chronic actinic dermatitis 11/27/2012 0 07/18/2016 Postinflammatory skin changes 11/27/2012 07/18/2016 Hypopigmentation 09/30/2012 07/18/2016 Scars 09/30/2012 10/09/2016 Family history of malignant neoplasm of gastrointestinal tract 03/06/2012 10/09/2016 Family history of colon cancer 10/29/2011 10/09/2016 BPH loc w urin obs/LUTS 04/24/200612/07 documented as of this encounter (statuses as of 06/18/2023) [facility] History of Past illness Narrative* Problem Noted Date Diagnosed Date Resolved Date Lumbar spondylosis 07/13/2013 6 Xerosis cutis 06/24/2013 07/18/2016 L-S radiculopathy 04/20/2013 07/13/2013 DDD (degenerative disc disease), lumbar 04/20/2013 07/13/2013 Chronic actinic dermatitis 11/27/2012 0 07/18/2016 Postinflammatory skin changes 11/27/2012 07/18/2016 Hypopigmentation 09/30/2012 07/18/2016 Scars 09/30/2012 10/09/2016 Family history of malignant neoplasm of gastrointestinal tract 03/06/2012 10/09/2016 Family history of colon cancer 10/29/2011 10/09/2016 BPH loc w urin obs/LUTS 04/24/200612/07 documented as of this encounter (statuses as of 06/19/2023) [facility] No data available for this section [facility] Evaluation note* Diagnosis Prostate cancer metastatic to bone (HCC) [facility] Diagnosis Prostate cancer (HCC) Malignant neoplasm of prostate [facility] Diagnosis 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) [facility] Diagnosis Prostate cancer metastatic to bone (HCC) [facility] Diagnosis 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 and other lower urinary tract symptoms (LUTS) [facility] Diagnosis Prostate cancer (HCC)- Primary Malignant neoplasm of prostate [facility] Prostate cancer metastatic to bone (HCC) Malignant neoplasm of prostate (HCC) Malignant neoplasm of prostate [facility] 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) Bone metastasis (HCC) Secondary malignant neoplasm of bone and bone marrow [facility] BPH with elevated PSA Hypertrophy of prostate without urinary obstruction and other lower urinary tract symptoms (LUTS) [facility] Pro[facility] cancer- Primary Malignant neoplasm of prostate [facility] cancer (HCC) Malignant neoplasm of prostate [facility] Diagnosis Prostate cancer (HCC)- Primary Malignant neoplasm of prostate Bone metastasis (HCC) Secondary malignant neoplasm of bone and bone marrow Benign prostatic hyperplasia, unspecified whether lower urinary tract symptoms present 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 Gastroesophageal reflux disease, unspecified whether esophagitis present History of skin cancer Personal history of other malignant neoplasm of skin Screening for colon cancer Special screening for malignant neoplasms, colon [facility] Prostate cancer (HCC)- Primary Malignant neoplasm of prostate [facility] Notalgia paresthetica- Primary Disturbance of skin sensation Actinic keratosis Seborrheic keratosis Other seborrheic keratosis Cabrera angioma Nevus, non-neoplastic Lentigines Other dyschromia Multiple benign nevi Benign neoplasm of skin, site unspecified Personal history of skin cancer Personal history of other malignant neoplasm of skin [facility] Malignant neoplasm of prostate (HCC)- Primary Malignant neoplasm of prostate Prostate cancer (HCC) Malignant neoplasm of prostate [facility] 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) [facility] 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state cancer metastatic to bone (HCC)- Primary 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 Bone metastasis (HCC) Secondary malignant neoplasm of bone and bone marrow Family history of prostate [facility] in [facility] ([facility]CC)- Primary Malignant neoplasm of prostate [facility] Chronic superficial gastritis without bleeding- Primary Atrophic gastritis without mention of hemorrhage Gastroesophageal reflux disease with esophagitis without hemorrhage Family history of colon cancer Family history of malignant neoplasm of gastrointestinal tract [facility] 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) [facility] 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) [facility] Malignant neoplasm of prostate (HCC)- Primary Malignant neoplasm of prostate Bone metastasis (HCC) Secondary malignant neoplasm of bone and bone marrow [facility] Actinic keratosis- Primary [facility] Diagnosis Prostate cancer (HCC)- Primary Malignant neoplasm of prostate [facility] cancer (HCC)- Primary [facility]ignant neoplasm of prostate [facility] Prostate cancer metastatic to bone (HCC)- Primary 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 [facility] Prostate cancer metastatic to bone (HCC) [facility] Diagnosis Prostate cancer (HCC)- Primary Malignant neoplasm of prostate [facility] Diagnosis Prostate cancer (HCC)- Primary Malignant neoplasm of prostate [facility] Diagnosis Prostate cancer (HCC)- Primary Malignant neoplasm of prostate [facility] Diagnosis 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 [facility] Prostate cancer (HCC)- Primary Malignant neoplasm of prostate [facility] Diagnosis Seborrheic keratosis- Primary Other seborrheic keratosis Cabrera angioma Nevus, non-neoplastic Lentigines Other dyschromia Multiple benign nevi Benign neoplasm of skin, site unspecified Actinic keratosis Personal history of skin cancer Personal history of other malignant neoplasm of skin Senile purpura (HCC) Other nonthrombocytopenic purpuras [facility] Diagnosis Hemorrhoids, unspecified hemorrhoid type- Primary Perianal cyst Other specified disorder of rectum and anus [facility] this encounter [facility] Diagnosis Prostate cancer (HCC)- Primary Malignant neoplasm of prostate [facility] Diagnosis Prostate cancer metastatic to bone (HCC) [facility] Diagnosis Screening for colon cancer- Primary Special screening for malignant neoplasms, colon History of colon polyps Personal history of colonic polyps Epigastric pain Abdominal pain, epigastric Gastroesophageal reflux disease, unspecified whether esophagitis present History of anemia Personal history of diseases of blood and blood-forming organs [facility] Diagnosis Prostate cancer (HCC)- Primary Malignant neoplasm of prostate [facility] Diagnosis 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 [facility] Diagnosis Prostate cancer (HCC)- Primary Malignant neoplasm of prostate [facility] this encounter [facility] Diagnosis Hyperlipidemia, mixed- Primary Mixed hyperlipidemia [facility] this encounter [facility]* Diagnosis Prostate cancer (HCC)- Primary Malignant neoplasm of prostate [facility] this encounter [facility] Diagnosis 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 [facility] Diagnosis Prostate cancer (HCC)- Primary Malignant neoplasm of prostate 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 [facility] Diagnosis SOB (shortness of breath)- Primary Shortness of breath Chest pain, unspecified type Acute left-sided low back pain, unspecified whether sciatica present [facility] Diagnosis SOB (shortness of breath) Shortness of breath Chest pain, unspecified type [facility] Diagnosis 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 Prostate cancer (HCC) Malignant neoplasm of prostate [facility] encounter [facility] Diagnosis 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 [facility] Prostate cancer (HCC)- Primary Malignant neoplasm of prostate 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 [facility] Prostate cancer (HCC)- Primary Malignant neoplasm of prostate 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 [facility] Prostate cancer (HCC)- Primary Malignant neoplasm of prostate [facility] Prostate cancer metastatic to bone (HCC) [facility] encounter [facility] Diagnosis SOB (shortness of breath)- Primary Shortness of breath Abnormal ECG Nonspecific abnormal electrocardiogram (ECG) (EKG) Chest pain, unspecified type Mixed hyperlipidemia [facility] Diagnosis Prostate cancer metastatic to bone (HCC)- Primary 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 [facility] this encounter [facility] Diagnosis Prostate cancer (HCC)- Primary Malignant neoplasm of prostate 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 [facility] Diagnosis 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 [facility] this encounter [facility] Diagnosis SOB (shortness of breath) Shortness of breath Abnormal ECG Nonspecific abnormal electrocardiogram (ECG) (EKG) Chest pain, unspecified type Mixed hyperlipidemia [facility] 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 and other lower urinary tract symptoms (LUTS) [facility] this encounter [facility] Diagnosis 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 Prostate cancer (HCC) Malignant neoplasm of prostate [facility] Diagnosis Xerosis cutis- Primary Other specified disease of sebaceous glands Actinic keratosis Seborrheic keratosis Other seborrheic keratosis Lentigines Other dyschromia Cabrera angioma Nevus, non-neoplastic Multiple benign nevi Benign neoplasm of skin, site unspecified Personal history of skin cancer Personal history of other malignant neoplasm of skin [facility] this [facility]* Diagnosis Prostate cancer metastatic to bone (HCC)- Primary Abdominal pain, unspecified abdominal location Acute left-sided low back pain, unspecified whether sciatica present [facility] Diagnosis Prostate cancer metastatic to bone (HCC) Abdominal pain, unspecified abdominal location Acute left-sided low back pain, unspecified whether sciatica present [facility] Diagnosis Prostate cancer (HCC)- Primary Malignant neoplasm of prostate 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 [facility] Diagnosis SOB (shortness of breath) Shortness of breath Chest pain, unspecified type [facility] Diagnosis Left hip pain- Primary Pain in joint, pelvic region and thigh [facility] Diagnosis Left hip pain Pain in joint, pelvic region and thigh [facility] Diagnosis 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 Prostate cancer (HCC) Malignant neoplasm of prostate [facility] Diagnosis Right hip pain- Primary Pain in joint, pelvic region and thigh Prostate cancer (HCC) Malignant neoplasm of prostate 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 [facility] this [facility]* Diagnosis Left hip pain- Primary Pain in joint, pelvic region and thigh Radiculopathy, lumbar region Thoracic or lumbosacral neuritis or radiculitis, unspecified Decreased ROM of lumbar spine Weakness of trunk musculature Muscle weakness (generalized) [facility] Diagnosis Left inguinal pain- Primary Abdominal pain, left lower quadrant Spinal stenosis of lumbar region, unspecified whether neurogenic claudication present Left inguinal pain Abdominal pain, left lower quadrant [facility] Diagnosis Left inguinal pain Abdominal pain, left lower quadrant documented in this encounter [facility]* Diagnosis 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 [facility] Diagnosis Left hip pain- Primary Pain in joint, pelvic region and thigh Radiculopathy, lumbar region Thoracic or lumbosacral neuritis or radiculitis, unspecified Decreased ROM of lumbar spine Weakness of trunk musculature Muscle weakness (generalized) [facility] Diagnosis Left hip pain- Primary Pain in joint, pelvic region and thigh Radiculopathy, lumbar region Thoracic or lumbosacral neuritis or radiculitis, unspecified Decreased ROM of lumbar spine Weakness of trunk musculature Muscle weakness (generalized) [facility] Diagnosis 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 Prostate cancer (HCC) Malignant neoplasm of prostate [facility] Diagnosis Left hip pain- Primary Pain in joint, pelvic region and thigh Radiculopathy, lumbar region Thoracic or lumbosacral neuritis or radiculitis, unspecified Decreased ROM of lumbar spine Weakness of trunk musculature Muscle weakness (generalized) [facility] Diagnosis Left hip pain- Primary Pain in joint, pelvic region and thigh Radiculopathy, lumbar region Thoracic or lumbosacral neuritis or radiculitis, unspecified Decreased ROM of lumbar spine Weakness of trunk musculature Muscle weakness (generalized) [facility] Diagnosis Left hip pain- Primary Pain in joint, pelvic region and thigh Radiculopathy, lumbar region Thoracic or lumbosacral neuritis or radiculitis, unspecified Decreased ROM of lumbar spine Weakness of trunk musculature Muscle weakness (generalized) [facility] Diagnosis Left hip pain- Primary Pain in joint, pelvic region and thigh Radiculopathy, lumbar region Thoracic or lumbosacral neuritis or radiculitis, unspecified Decreased ROM of lumbar spine Weakness of trunk musculature Muscle weakness (generalized) [facility] Diagnosis Left hip pain- Primary Pain in joint, pelvic region and thigh Radiculopathy, lumbar region Thoracic or lumbosacral neuritis or radiculitis, unspecified Decreased ROM of lumbar spine Weakness of trunk musculature Muscle weakness (generalized) [facility]* Diagnosis Medicare annual wellness visit, subsequent- Primary Routine general medical examination at a health care facility Screening for depression [facility]* Diagnosis Prostate cancer (HCC)- Primary Malignant neoplasm of prostate 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 [facility]* Diagnosis Actinic keratosis- Primary [facility]* Diagnosis Osteoarthritis of spine with radiculopathy, lumbar region- Primary Chronic left hip pain Pain in joint, pelvic region and thigh Right hip pain Pain in joint, pelvic region and thigh [facility]* Diagnosis Prostate cancer metastatic to bone (HCC) [facility]* Diagnosis Left hip pain- Primary Pain in joint, pelvic region and thigh Radiculopathy, lumbar region Thoracic or lumbosacral neuritis or radiculitis, unspecified Decreased ROM of lumbar spine Weakness of trunk musculature Muscle weakness (generalized) [facility]* Diagnosis Skin neoplasm- Primary Neoplasm of unspecified nature of bone, soft tissue, and skin [facility]* Diagnosis 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 [facility]* Diagnosis 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 Prostate cancer (HCC) Malignant neoplasm of prostate [facility]* Diagnosis 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 [facility]* Diagnosis 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 [facility]* Diagnosis Motion sickness, initial encounter- Primary [facility]* Diagnosis Prostate cancer (HCC)- Primary Malignant neoplasm of prostate 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 [facility]* Diagnosis 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 [facility]* Diagnosis 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 and skin of neck [facility]* Diagnosis 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 [facility]* Diagnosis Prostate cancer (HCC)- Primary Malignant neoplasm of prostate 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 [facility]* Diagnosis Prostate cancer (HCC)- Primary Malignant neoplasm of prostate 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) [facility] Diagnosis Vitamin D deficiency- Primary Unspecified vitamin D deficiency Iron deficiency Iron deficiency anemia, unspecified SOB (shortness of breath) Shortness of breath Mixed hyperlipidemia documented in this encounter [facility]* Diagnosis Prostate cancer (HCC)- Primary Malignant neoplasm of prostate 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 [facility]* Diagnosis Prostate cancer (HCC)- Primary Malignant neoplasm of prostate documented in this encounter [facility] for referral (narrative)* Diagnostic Procedure Only (Routine) - Closed Specialty Diagnoses / Procedures Referred By Contac t Referred To Contact [facility]AL [facility]AG[facility] Diagnoses Prostate cancer metastatic to bone (HCC) Malignant neoplasm of prostate (HCC) Procedures NM BONE WHOLE BODY BONE &/JOINT IMAGING WHOLE BODY Lillian Clemente MD [address] [place] [address] [facility] [address] [place] [address] Referral ID Status Reason Start Date Expiration Date V isits Requested Visits Authorized [id number] Closed Auto-Generate d Referral 08/26/2021 06/28/2022 1 1 [facility] for referral (narrative)* Outpatient Procedure (Routine) - Closed Specialty Diagnoses / Procedures Referred By Contac t Referred To Contact [facility] Diagnoses Epigastric pain Gastroesophageal reflux disease, unspecified whether esophagitis present History of anemia Procedures EGD DIAGNOSTIC ESOPHAGOGASTRODUODENOSC OPY TRANSORAL DIAGNOSTIC Derrek Baker PA-C [address] [place] [address] [facility] [place] [address] [place] [address] Referral ID Status Reason Start Date Expiration Date V isits Requested Visits Authorized [id number] Closed Auto-Generate d Referral 01/25/2022 01/25/2023 1 1 * Outpatient Procedure (Routine) - Closed Specialty Diagnoses / Procedures Referred By Contac t Referred To Contact [facility] Diagnoses History of colon polyps Procedures COLONOSCOPY DIAGNOSTIC COLONOSCOPY FLX DX W/COLLJ SPEC WHEN PFRMD Derrek Baker PA-C [address] [facility] [place] [address] [facility] [address] [address] Referral ID Status Reason Start Date Expiration Date V isits Requested Visits Authorized [id number] Closed Auto-Generate d Referral 01/25/2022 01/25/2023 1 1 [facility] for referral (narrative)* Outpatient Procedure (Urgent) - Closed Specialty Diagnoses / Procedures Referred By Contac t Referred To Contact [facility] Diagnoses SOB (shortness of breath) Chest pain, unspecified type Procedures EXERCISE STRESS ECG (WITHOUT IMAGING) Catehrine Peraza APRN.CNP [address] [place] [address] [address] Referral ID Status Reason Start Date Expiration Date V isits Requested Visits Authorized [id number] Closed Auto-Generate d Referral 06/11/2023 06/10/2024 1 1 [facility] for referral (narrative)* Diagnostic Procedure Only (Routine) - New Request Specialty Diagnoses / Procedures Referred By Contact Referred To Contact [facility] Diagnoses SOB (shortness of breath) Abnormal ECG Chest pain, unspecified type Mixed hyperlipidemia Abnormal electrocardiogram Procedures NM CARDIAC PERF STRESS/EXERCISE MYOCARDIAL SPECT MULTIPLE STUDIES Dorcas Champagne, [address] [place] [address] [facility] [address] [place] [id number] Referral ID Status Reason Start Date Expiration Date Visits Requested Visits Authorized [id number] New Request Auto-Generat ed Referral 10/16/2023 11/14/2024 1 1 [facility] for referral (narrative)* Diagnostic Procedure Only (Routine) - Closed Specialty Diagnoses / Procedures Referred By Contact Referred To Contact [facility] Diagnoses SOB (shortness of breath) Abnormal ECG Chest pain, unspecified type Mixed hyperlipidemia Abnormal electrocardiogram Procedures NM CARDIAC PERF STRESS/EXERCISE MYOCARDIAL SPECT MULTIPLE STUDIES Dorcas Champagne DO [facility] [address] [facility] [address] [place] [address] Referral ID Status Reason Start Date Expiration Date V isits Requested Visits Authorized [id number] Closed Auto-Generate d Referral 10/16/2023 11/14/2024 1 1 [facility] for referral (narrative)* Diagnostic Procedure Only (Routine) - Closed Specialty Diagnoses / Procedures Referred By Leslee esquivel Referred To Contact US IMAGING Diagnoses Left inguinal pain LLQ abdominal pain Procedures US DOPPLER COMPLETE DUP-SCAN ARTL KIRSTY ABDL/PEL/SCROT&/RPR ORGN [facility] Arsalan Ocampo MD [address] [place] [address] [facility] [place] [address] Referral ID Status Reason Start Date Expiration Date V isits Requested Visits Authorized [id number] Closed Auto-Generate d Referral 02/03/2024 03/04/2025 1 1 * Diagnostic Procedure Only (Urgent) - Closed Specialty Diagnoses / Procedures Referred By Leslee esquivel Referred To Contact [facility] Diagnoses Left inguinal pain LLQ abdominal pain Procedures US SCROTUM AND CONTENTS US SCROTUM & CONTENTS Arsalan Ocampo MD [address] [place] [address] [place] [phone] Referral ID Status Reason Start Date Expiration Date V isits Requested Visits Authorized [id number] Closed Auto-Generate d Referral 02/03/2024 03/04/2025 1 1 [facility] for visit Narrative* Diagnostic Procedure Only (Routine) - Closed Specialty Diagnoses / Procedures Referred By Contac t Referred To Contact [facility] Diagnoses Prostate cancer metastatic to bone (HCC) Malignant neoplasm of prostate (HCC) Procedures NM BONE WHOLE BODY BONE &/JOINT IMAGING WHOLE BODY Lillian Clemente MD [address] [facility] [place] [address] [facility] [address] [place], [place] [id number] Referral ID Status Reason Start Date Expiration Date V isits Requested Visits Authorized [id number] Closed Auto-Generate d Referral 08/26/2021 06/28/2022 1 1 [facility] for visit Narrative* Outpatient Procedure (Routine) - Closed Specialty Diagnoses / Procedures Referred By Contac t Referred To Contact [facility] Diagnoses Epigastric pain Gastroesophageal reflux disease, unspecified whether esophagitis present History of anemia Procedures EGD DIAGNOSTIC ESOPHAGOGASTRODUODENOSC OPY TRANSORAL DIAGNOSTIC Derrek Baker PA-C [address] [place] [address] [facility] [place] [address] [place], [place] [id number] Referral ID Status Reason Start Date Expiration Date V isits Requested Visits Authorized [id number] Closed Auto-Generate d Referral 01/25/2022 01/25/2023 1 1 [facility] for visit Narrative* Outpatient Procedure (Urgent) - Closed Specialty Diagnoses / Procedures Referred By Contac t Referred To [facility] Diagnoses SOB (shortness of breath) Chest pain, unspecified type Procedures EXERCISE STRESS ECG (WITHOUT IMAGING) Catherine Peraza APRN.DIRECTOR OF HEALTH CARE MARKETING [address] [place] [address] [facility] [place] [address] [place] [address] Referral ID Status Reason Start Date Expiration Date V isits Requested Visits Authorized [id number] Closed Auto-Generate d Referral 06/11/2023 06/10/2024 1 1 [facility] for visit Narrative* Diagnostic Procedure Only (Routine) - Closed Specialty Diagnoses / Procedures Referred By Contact Referred To Contact [facility] Diagnoses SOB (shortness of breath) Abnormal ECG Chest pain, unspecified type Mixed hyperlipidemia Abnormal electrocardiogram Procedures NM CARDIAC PERF STRESS/EXERCISE MYOCARDIAL SPECT MULTIPLE STUDIES Dorcas Champagne, DO [address] [place] [address] [facility] [address] [place] [address] Referral ID Status Reason Start Date Expiration Date V isits Requested Visits Authorized [id number] Closed Auto-Generate d Referral 10/16/2023 11/14/2024 1 1 [facility] for visit Narrative* Diagnostic Procedure Only (Routine) - Closed Specialty Diagnoses / Procedures Referred By Contac t Referred To Contact XR IMAGING Diagnoses Left hip pain Procedures XR HIP GENERAL 3V PELV/AP/LAT LEFT RADEX HIP UNILATERAL WITH PELVIS 2-3 VIEWS PodlogarCatherine APRN.JOI [address] [place] [address] [facility] Referral ID Status Reason Start Date Expiration Date V isits Requested Visits Authorized [id number] Closed Auto-Generate d Referral 12/24/2023 01/22/2025 1 1 [facility] for visit Narrative* Diagnostic Procedure Only (Routine) - Closed Specialty Diagnoses / Procedures Referred By Contac t Referred To Contact [facility] Diagnoses Left inguinal pain LLQ abdominal pain Procedures US DOPPLER COMPLETE DUP-SCAN ARTL KIRSTY ABDL/PEL/SCROT&/RPR ORGN COM Arsalan Ocampo MD [address] [place] [address] [place] [address] Referral ID Status Reason Start Date Expiration Date V isits Requested Visits Authorized [id number] Closed Auto-Generate d Referral 02/03/2024 03/04/2025 1 1 [facility] for visit Narrative* Gita Prior Authorization (Routine) - Authorized Specialty Diagnoses / Procedures Referred By Contjersey t Referred To Contact Diagnoses 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) Procedures DARBEPOETIN DAGMAR, NON-ESRD Dereje Herring MD [address] [place] [address] Phone: tel: Dereje Herring MD [address] [place] [address] Phone: tel: Referral ID Status Reason Start Date Expiration Date V isits Requested Visits Authorized [id number] Authorized 08/16/2024 02/11/2025 99 99 [facility] Summary Purpose Family History No Family History Records FoundNo Family History Records FoundNo Family History Records FoundNo Family History Records FoundNo Family History Records FoundNo Family History Records FoundNo Family History Records FoundNo Family History Records FoundNo Family History Records Found Advance Directives No Advanced Directives Records FoundDocuments on File Type 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 Advance Directive(s) 08/09/2020 12:28 PM Advance Directive(s) 07/31/2020 9:26 AM Advance Directive(s) 02/10/2017 12:25 PM Advance Directive(s) 10/10/2016 10:52 AM Advance Directive(s) 02/26/2016 3:45 PM Advance Directive(s) 02/21/2016 11:13 AM Advance Directive(s) 03/10/2012 4:03 PM Documents on File Type 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 Advance Directive(s) 08/09/2020 12:28 PM Advance Directive(s) 07/31/2020 9:26 AM Advance Directive(s) 02/10/2017 12:25 PM Advance Directive(s) 10/10/2016 10:52 AM Advance Directive(s) 02/26/2016 3:45 PM Advance Directive(s) 02/21/2016 11:13 AM Advance Directive(s) 03/10/2012 4:03 PM Documents on File Type 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 REFRIGERATE Given 07/19/2021 10:09 AM EDT 120 mg Abdomen, RUQ Given 06/21/2021 11:00 AM EDT 120 mg A rm, Right Given 05/24/2021 10:07 AM EST 120 mg A bdomen, RUQ Active Administered Medications - up to 3 most recent administrations Medication Order MAR Action Action Date Dose Rate Site denosumab 120 mg injection (XGEVA) 120 mg, SUBCUTANEOUS, EVERY 4 WEEKS, 12 doses, First dose on Fri04/27/21 at 0700, Last dose on Fri03/01/22 at 0700, Allow To Come To Room Temperature Before Administration. REFRIGERATE Given 08/16/2021 10:15 AM EDT 120 mg Arm, Left Given 07/19/2021 10:09 AM EDT 120 mg A bdomen, RUQ Given 06/21/2021 11:00 AM EDT 120 mg A rm, Right Active Administered Medications - up to 3 most recent administrations Medication Order MAR Action Action Date Dose Rate Site denosumab 120 mg injection (XGEVA) 120 mg, SUBCUTANEOUS, EVERY 4 WEEKS, 12 doses, First dose on Fri04/27/21 at 0700, Last dose on Fri03/01/22 at 0700, Allow To Come To Room Temperature Before Administration. REFRIGERATE Given 10/11/2021 9:10 AM EDT 120 mg Abdom en, RUQ Given 09/13/2021 9:15 AM EDT 120 mg Ar m, Right Given 08/16/2021 10:15 AM EDT 120 mg A rm, Left Inactive Administered Medications - up to 3 most recent administrations Medication Order MAR Action Action Date Dose Rate Site leuprolide 45 mg injection (ELIGARD) 45 mg, SUBCUTANEOUS, EVERY 6 MONTHS, 2 doses, First dose on Fri04/26/21 at 1030, Last dose on Fri10/23/21 at 1030, Hazardous Chemotherapy Drug: Use appropriate PPE. Given 10/11/2021 9:11 AM EDT 45 mg Abdomen, LUQ Given 04/26/2021 11:30 AM EST 45 mg A bdomen, LLQ Active Administered Medications - up to 3 most recent administrations Medication Order MAR Action Action Date Dose Rate Site denosumab 120 mg injection (XGEVA) 120 mg, SUBCUTANEOUS, EVERY 4 WEEKS, 12 doses, First dose on Fri04/27/21 at 0700, Last dose on Fri03/01/22 at 0700, Allow To Come To Room Temperature Before Administration. REFRIGERATE Given 11/15/2021 10:20 AM EDT 120 mg Arm, Left Given 10/11/2021 9:10 AM EDT 120 mg Ab domen, RUQ Given 09/13/2021 9:15 AM EDT 120 mg Ar m, Right Active Administered Medications - up to 3 most recent administrations Medication Order MAR Action Action Date Dose Rate Site denosumab 120 mg injection (XGEVA) 120 mg, SUBCUTANEOUS, EVERY 4 WEEKS, 12 doses, First dose on Fri04/27/21 at 0700, Last dose on Fri03/01/22 at 0700, Allow To Come To Room Temperature Before Administration. REFRIGERATE Given 12/13/2021 1:15 PM EDT 120 mg Arm, Right Given 11/15/2021 10:20 AM EDT 120 mg A rm, Left Given 10/11/2021 9:10 AM EDT 120 mg Ab domen, RUQ Active Administered Medications - up to 3 most recent administrations Medication Order MAR Action Action Date Dose Rate Site denosumab 120 mg injection (XGEVA) 120 mg, SUBCUTANEOUS, EVERY 4 WEEKS, 12 doses, First dose on Fri04/27/21 at 0700, Last dose on Fri03/01/22 at 0700, Allow To Come To Room Temperature Before Administration. REFRIGERATE Given 02/21/2022 10:00 AM EST 120 mg Arm, Left Given 01/24/2022 11:15 AM EDT 120 mg A rm, Right Given 12/13/2021 1:15 PM EDT 120 mg Ar m, Right Inactive Administered Medications - up to 3 most recent administrations Medication Order MAR Action Action Date Dose Rate Site denosumab 120 mg injection (XGEVA) 120 mg, SUBCUTANEOUS, EVERY 4 WEEKS, 12 doses, First dose on Fri04/27/21 at 0700, Last dose on Fri03/01/22 at 0700, Allow To Come To Room Temperature Before Administration. REFRIGERATE Given 03/21/2022 10:00 AM EST 120 mg Abdomen, LUQ Given 02/21/2022 10:00 AM EST 120 mg A rm, Left Given 01/24/2022 11:15 AM EDT 120 mg A rm, Right Inactive Administered Medications - up to 3 most recent administrations Medication Order MAR Action Action Date Dose Rate Site denosumab 120 mg injection (XGEVA) 120 mg, SUBCUTANEOUS, ONCE (UP TO 30 DAYS AMB), 1 dose, On Fri04/26/22 at 1230, Allow To Come To Room Temperature Before Administration. REFRIGERATE Given 04/26/2022 1:04 PM EST 120 mg Abdomen, LLQ leuprolide acetate (6 month) 45 mg IM syringe kit (LUPRON) 45 mg, INTRAMUSCULAR, ONCE, 1 dose, On Fri04/26/22 at 1230, Hazardous Chemotherapy Drug: Use appropriate PPE. Given 04/26/2022 1:05 PM EST 45 mg Buttocks, Left Active Administered Medications - up to 3 most recent administrations Medication Order MAR Action Action Date Dose Rate Site denosumab 120 mg injection (XGEVA) 120 mg, SUBCUTANEOUS, EVERY 1 MONTH, 6 doses, First dose on Fri06/03/22 at 1830, Last dose on Fri10/31/22 at 1830, Allow To Come To Room Temperature Before Administration. REFRIGERATE Given 05/30/2022 10:10 AM EST 120 mg Arm, Left Active Administered Medications - up to 3 most recent administrations Medication Order MAR Action Action Date Dose Rate Site denosumab 120 mg injection (XGEVA) 120 mg, SUBCUTANEOUS, EVERY 1 MONTH, 6 doses, First dose on Fri06/03/22 at 1830, Last dose on Fri10/31/22 at 1830, Allow To Come To Room Temperature Before Administration. REFRIGERATE Given 08/01/2022 10:10 AM EDT 120 mg Abdomen, RUQ Given 07/04/2022 9:55 AM EDT 120 mg Ar m, Left Given 05/30/2022 10:10 AM EST 120 mg A rm, Left Inactive Administered Medications - up to 3 most recent administrations Medication Order MAR Action Action Date Dose Rate Site denosumab 120 mg injection (XGEVA) 120 mg, SUBCUTANEOUS, ONCE, 1 dose, On Fri09/26/22 at 0930, REFRIGERATE Given 09/26/2022 9:30 AM EDT 120 mg Arm, Right Inactive Administered Medications - up to 3 most recent administrations Medication Order MAR Action Action Date Dose Rate Site leuprolide acetate (6 month) 45 mg IM syringe kit (LUPRON) 45 mg, INTRAMUSCULAR, ONCE, 1 dose, On 10/14/22 at 0930, Hazardous Chemotherapy Drug: Use appropriate PPE. Given 10/14/2022 9:14 AM EDT 45 mg Buttocks, Right Inactive Administered Medications - up to 3 most recent administrations Medication Order MAR Action Action Date Dose Rate Site denosumab 120 mg injection (XGEVA) 120 mg, SUBCUTANEOUS, ONCE, 1 dose, On Roseann 10/24/22 at 0930, REFRIGERATE Given 10/24/2022 9:16 AM EDT 120 mg Arm, Left Inactive Administered Medications - up to 3 most recent administrations Medication Order MAR Action Action Date Dose Rate Site denosumab 120 mg injection (XGEVA) 120 mg, SUBCUTANEOUS, ONCE, 1 dose, On Roseann 11/21/22 at 0930, REFRIGERATE Given 11/21/2022 9:30 AM EDT 120 mg Arm, Left Inactive Administered Medications - up to 3 most recent administrations Medication Order MAR Action Action Date Dose Rate Site denosumab 120 mg injection (XGEVA) 120 mg, SUBCUTANEOUS, ONCE, 1 dose, On Roseann 12/19/22 at 0930, REFRIGERATE Given 12/19/2022 9:16 AM EDT 120 mg Arm, Right Inactive Administered Medications - up to 3 most recent administrations Medication Order MAR Action Action Date Dose Rate Site denosumab 120 mg injection (XGEVA) 120 mg, SUBCUTANEOUS, ONCE, 1 dose, On Roseann 01/16/23 at 0930, REFRIGERATE Given 01/16/2023 9:30 AM EDT 120 mg Arm, Left Inactive Administered Medications - up to 3 most recent administrations Medication Order MAR Action Action Date Dose Rate Site benzocaine 20% 1 [place] (TOPEX) 1 [place], TOPICAL, DIRECTED, Starting on Fri02/27/22 at 0930, Until Fri02/27/22 at 1329, DOSING DIRECTED BY PHYSICIAN FOR PROCEDURAL SEDATION ONLY - Pharmaceutical Waste: Aerosol -, Intraprocedure Given 02/27/2022 9:01 AM EST 3 Sprays diphenhydrAMINE 12.5-50 mg injection (BENADRYL) 12.5-50 mg, INTRAVENOUS, DIRECTED, Starting on Fri02/27/22 at 0930, Until Fri02/27/22 at 1329, DOSING DIRECTED BY PHYSICIAN FOR PROCEDURAL SEDATION ONLY, Intraprocedure Given 02/27/2022 9:04 AM EST 50 mg fentaNYL 50 mcg/mL 25-100 mcg injection (SUBLIMAZE) 25-100 mcg, INTRAVENOUS, DIRECTED, Starting on Fri02/27/22 at 0930, Until Fri02/27/22 at 1329, DOSING DIRECTED BY PHYSICIAN FOR PROCEDURAL SEDATION ONLY, Intraprocedure Given 02/27/2022 9:23 AM EST 50 mcg Given 02/27/2022 9:02 AM EST 50 mcg lactated ringers iv infusion 75 mL/hr, INTRAVENOUS, CONTINUOUS, Starting on Fri02/27/22 at 0900, Until Fri02/27/22 at 0943, Preprocedure New Bag/Syringe/Bottle 02/27/2022 8:40 AM EST 75 mL/hr 75 mL/hr midazolam (PF) 1-5 mg injection (VERSED) 1-5 mg, INTRAVENOUS, DIRECTED, Starting on Fri02/27/22 at 0930, Until Fri02/27/22 at 1329, DOSING DIRECTED BY PHYSICIAN FOR PROCEDURAL SEDATION ONLY, Intraprocedure Given 02/27/2022 9:23 AM EST 2 mg Given 02/27/2022 9:15 AM EST 2 mg Given 02/27/2022 9:02 AM EST 3 mg Inactive Administered Medications - up to 3 most recent administrations Medication Order MAR Action Action Date Dose Rate Site denosumab 120 mg injection (XGEVA) 120 mg, SUBCUTANEOUS, ONCE, 1 dose, On Roseann 02/13/23 at 1030, REFRIGERATE Given 02/13/2023 10:27 AM EST 120 mg Arm, Right Inactive Administered Medications - up to 3 most recent administrations Medication Order MAR Action Action Date Dose Rate Site denosumab 120 mg injection (XGEVA) 120 mg, SUBCUTANEOUS, ONCE, 1 dose, On Roseann 03/13/23 at 0900, REFRIGERATE Given 03/13/2023 9:14 AM EST 120 mg Arm, Right Reason for Referral Specialty Diagnoses / Procedures Referred By Contac t Referred To Contact General Surgery Diagnoses Screening for colon cancer Procedures CONSULT TO GENERAL SURGERY OFFICE/OUTPATIENT [facility] 60-74 MINUTES Arsalan Ocampo MD [address] [place] [address] Referral ID Status Reason Start Date Expiration Date Visits Requested Visits Authorized [id number] Authorized PCP Requested Referral 11/13/2021 11/13/2022 1 1 Specialty Diagnoses / Procedures Referred By Contac t Referred To Contact Diagnoses 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) Bone metastasis (HCC) Family history of prostate cancer in father Procedures CONSULT TO [facility] CANCER GENETIC COUNSELING MEDICAL GENETICS COUNSELING EACH 30 MINUTES Lillian Clemente MD [address] [place] [address] [address] Referral ID Status Reason Start Date Expiration Date Visits Requested Visits Authorized [id number] Authorized PCP Requested Referral Auto-Generate d Referral 02/14/2023 1 1 Specialty Diagnoses / Procedures Referred By Contac t Referred To Contact Cardiology Diagnoses SOB (shortness of breath) Chest pain, unspecified type Procedures CONSULT TO CARDIOLOGY OFFICE/OUTPATIENT [facility] 60 MINUTES PodlogCatherine verduzco APRN.JOI [address] [place] [address] Referral ID Status Reason Start Date Expiration Date Visits Requested Visits Authorized [id number] Authorized PCP Requested Referral 06/11/2023 06/10/2024 1 1 Specialty Diagnoses / Procedures Referred By Contac t Referred To Contact [facility] Diagnoses SOB (shortness of breath) Chest pain, unspecified type Procedures EXERCISE STRESS ECG (WITHOUT IMAGING) PodlogCatherine verduzco APRN.DIRECTOR OF HEALTH CARE MARKETING [address] [place] [address] [facility] [address] [place] [id number] Referral ID Status Reason Start Date Expiration Date Visits Requested Visits Authorized [id number] Authorized Auto-Generat ed Referral 06/11/2023 06/10/2024 1 1 Specialty Diagnoses / Procedures Referred By Contac t Referred To Contact [facility] Diagnoses SOB (shortness of breath) Chest pain, unspecified type Procedures ECHO ECHO TTHRC R-T 2D W/WOM-MODE COMPL SPEC&COLR D Podlogar, Catherine, COMMUNITY LIAISON OFFICER.DIRECTOR OF HEALTH CARE MARKETING [address] [place] [address] [facility] [address] [place] [address] Referral ID Status Reason Start Date Expiration Date Visits Requested Visits Authorized [id number] Authorized Auto-Generat ed Referral 06/11/2023 06/10/2024 1 1 Specialty Diagnoses / Procedures Referred By Contac t Referred To Contact [facility] Diagnoses SOB (shortness of breath) Chest pain, unspecified type Procedures ECG COMPLETE ECG ROUTINE ECG W/LEAST 12 LDS W/I&R Podlogar, Catherine, COMMUNITY LIAISON OFFICER.DIRECTOR OF HEALTH CARE MARKETING [address] [place] [address] [facility] [address] [place] [address] Referral ID Status Reason Start Date Expiration Date Visits Requested Visits Authorized [id number] Pending Review Auto-Generat ed Referral 06/11/2023 06/10/2024 1 1 Specialty Diagnoses / Procedures Referred By Contac t Referred To Contact CT IMAGING Diagnoses Prostate cancer metastatic to bone (HCC) Abdominal pain, unspecified abdominal location Acute left-sided low back pain, unspecified whether sciatica present Procedures CT LUMBAR SPINE W IVCON CT LUMBAR SPINE W IVCON CT LUMBAR SPINE W/CONTRAST MATERIAL Tee Ellis [address] [place] [address] [place] [address] Referral ID Status Reason Start Date Expiration Date Visits Requested Visits Authorized [id number] Authorized Auto-Generat ed Referral 12/05/2023 01/03/2025 1 1 Specialty Diagnoses / Procedures Referred By Contac t Referred To Contact CT IMAGING Diagnoses Prostate cancer metastatic to bone (HCC) Abdominal pain, unspecified abdominal location Acute left-sided low back pain, unspecified whether sciatica present Procedures CT ABD/PEL WO IVCON CT ABD & PELVIS W/O CONTRAST Tee Ellis [address] [place] [address] [place] [address] Referral ID Status Reason Start Date Expiration Date Visits Requested Visits Authorized [id number] Authorized Auto-Generat ed Referral 12/05/2023 01/03/2025 1 1 Referral ID Status Reason Start Date Expiration Date V isits Requested Visits Authorized [id number] Closed Auto-Generate d Referral 12/05/2023 01/03/2025 1 1 Referral ID Status Reason Start Date Expiration Date V isits Requested Visits Authorized [id number] Closed Auto-Generate d Referral 12/05/2023 01/03/2025 1 1 Specialty Diagnoses / Procedures Referred By Contac t Referred To Contact [facility] Diagnoses Left hip pain Procedures CONSULT TO PHYSICAL THERAPY PHYSICAL THERAPY EVALUATION [facility] 45 MINS Podlogar, DORIS Alexander.DIRECTOR OF HEALTH CARE MARKETING [address] [place] [address] [facility] [place] [address] [place] [address] Referral ID Status Reason Start Date Expiration Date Visits Requested Visits Authorized [id number] Authorized PCP Requested Referral Auto-Generate d Referral 12/24/2023 12/23/2024 99 99 Specialty Diagnoses / Procedures Referred By Contac t Referred To Contact XR IMAGING Diagnoses Left hip pain Procedures XR HIP GENERAL 3V PELV/AP/LAT LEFT RADEX HIP UNILATERAL WITH PELVIS 2-3 VIEWS Podlogar, DORIS Alexander.DIRECTOR OF HEALTH CARE MARKETING [address] [place] [address] [place] [address] Referral ID Status Reason Start Date Expiration Date V isits Requested Visits Authorized [id number] Closed Auto-Generate d Referral 12/24/2023 01/22/2025 1 1 Specialty Diagnoses / Procedures Referred By Contac t Referred To Contact Orthopedics Diagnoses Right hip pain Procedures CONSULT TO ORTHOPAEDICS OFFICE/OUTPATIENT [facility] 60 [place] [address] [place] [address] Referral ID Status Reason Start Date Expiration Date Visits Requested Visits Authorized [id number] Authorized PCP Requested Referral 01/20/2025 1 1 Specialty Diagnoses / Procedures Referred By Contac t Referred To Contact Diagnoses Left inguinal pain LLQ abdominal pain Arsalan Ocampo MD [address] [place] [address] Referral ID Status Reason Start Date Expiration Date Visits Re quested Visits Authorized [id number] Closed 1 1 Specialty Diagnoses / Procedures Referred By Contac t Referred To Contact US IMAGING Diagnoses Left inguinal pain LLQ abdominal pain Procedures US DOPPLER COMPLETE DUP-SCAN ARTL KIRSTY ABDL/PEL/SCROT&/RPR ORGN COM Arsalan Ocampo MD [address] [place] [address] [place] [address] Referral ID Status Reason Start Date Expiration Date V isits Requested Visits Authorized [id number] Closed Auto-Generate d Referral 02/03/2024 03/04/2025 1 1 Specialty Diagnoses / Procedures Referred By Contac t Referred To Contact US IMAGING Diagnoses Left inguinal pain LLQ abdominal pain Procedures US SCROTUM AND CONTENTS US SCROTUM & CONTENTS Arsalan Ocampo MD [address] [place] [address] [place] [address] Referral ID Status Reason Start Date Expiration Date V isits Requested Visits Authorized [id number] Closed Auto-Generate d Referral 02/03/2024 03/04/2025 1 1 Specialty Diagnoses / Procedures Referred By Contac t Referred To Contact Pain Management Diagnoses Osteoarthritis of spine with radiculopathy, lumbar region Chronic left hip pain Procedures CONSULT TO PAIN MGT OFFICE/OUTPATIENT [facility] 60 MINUTES Vicente Roach MD [address] [place] [address] Pallavi Foster, COMMUNITY LIAISON OFFICER.DIRECTOR OF HEALTH CARE MARKETING [address] [place] [address] Referral ID Status Reason Start Date Expiration Date Visits Requested Visits Authorized [id number] Authorized PCP Requested Referral 4 03/22/2025 1 1 Specialty Diagnoses / Procedures Referred By Contac t Referred To Contact Dermatology Diagnoses Squamous cell carcinoma of scalp Procedures MOHS OFFICE/OUTPATIENT [facility] 60 MINUTES Richie Dejesus MD [address] [place] [address] Referral ID Status Reason Start Date Expiration Date Visits Requested Visits Authorized [id number] Authorized PCP Requested Referral 2024 2025 1 1 Additional Source Comments (unrecognized sect ion and content) No Status Records FoundNo Status Records FoundNo Status Records FoundNo Status Records FoundNo Status Records FoundNo Status Records FoundNo Status Records FoundNo Status Records FoundNo Status Records Found INFORMATION SOURCE (unrecogn ized section and content) DATE CREATED AUTHOR 09/30/2017 [facility] DATE CREATED AUTHOR AUTHOR'S ORGANIZ ATION 10/01/2017 [facility] DATE CREATED AUTHOR AUTHOR'S ORGANIZ ATION 09/10/2021 [facility] DATE CREATED AUTHOR AUTHOR'S ORGANIZ ATION 05/08/2022 [facility] DATE CREATED AUTHOR AUTHOR'S ORGANIZ ATION 10/18/2022 Counts include 234 beds at the [facility] ([place]) DATE CREATED AUTHOR AUTHOR'S ORGANIZ ATION 11/13/2023 [facility] DATE CREATED AUTHOR AUTHOR'S ORGANIZ ATION 03/19/2024 [facility] DATE CREATED AUTHOR AUTHOR'S ORGANIZ ATION 05/14/2024 [facility] nt DATE CREATED AUTHOR AUTHOR'S ORGANIZ ATION 09/17/2024 [facility] Source Comments (unrecognize d section and content) In the event this informatio n is protected by the Federal Confidentiality of Alcohol and Drug Abuse Patient Records regulations: The Federal rules restrict any use of the information to criminally investigate or prosecute any alcohol or drug abuse patient.[facility] the event this information is protected by the Federal Confidentiality of Alcohol and Drug Abuse Patient Records regulations: The Federal rules restrict any use of the information to criminally investigate or prosecute any alcohol or drug abuse patient.[facility] CenterIn the event this information is protected by the Federal Confidentiality of Alcohol and Drug Abuse Patient Records regulations: The Federal rules restrict any use of the information to criminally investigate or prosecute any alcohol or drug abuse patient.[facility] CenterIn the event this information is protected by the Federal Confidentiality of Alcohol and Drug Abuse Patient Records regulations: The Federal rules restrict any use of the information to criminally investigate or prosecute any alcohol or drug abuse patient.[facility] CenterIn the event this information is protected by the Federal Confidentiality of Alcohol and Drug Abuse Patient Records regulations: The Federal rules restrict any use of the information to criminally investigate or prosecute any alcohol or drug abuse patient.[facility] CenterIn the event this information is protected by the Federal Confidentiality of Alcohol and Drug Abuse Patient Records regulations: The Federal rules restrict any use of the information to criminally investigate or prosecute any alcohol or drug abuse patient.[facility] CenterIn the event this information is protected by the Federal Confidentiality of Alcohol and Drug Abuse Patient Records regulations: The Federal rules restrict any use of the information to criminally investigate or prosecute any alcohol or drug abuse patient.[facility] CenterIn the event this information is protected by the Federal Confidentiality of Alcohol and Drug Abuse Patient Records regulations: The Federal rules restrict any use of the information to criminally investigate or prosecute any alcohol or drug abuse patient.[facility] CenterIn the event this information is protected by the Federal Confidentiality of Alcohol and Drug Abuse Patient Records regulations: The Federal rules restrict any use of the information to criminally investigate or prosecute any alcohol or drug abuse patient.[facility] CenterIn the event this information is protected by the Federal Confidentiality of Alcohol and Drug Abuse Patient Records regulations: The Federal rules restrict any use of the information to criminally investigate or prosecute any alcohol or drug abuse patient.[facility] CenterIn the event this information is protected by the Federal Confidentiality of Alcohol and Drug Abuse Patient Records regulations: The Federal rules restrict any use of the information to criminally investigate or prosecute any alcohol or drug abuse patient.[facility] CenterIn the event this information is protected by the Federal Confidentiality of Alcohol and Drug Abuse Patient Records regulations: The Federal rules restrict any use of the information to criminally investigate or prosecute any alcohol or drug abuse patient.[facility] CenterIn the event this information is protected by the Federal Confidentiality of Alcohol and Drug Abuse Patient Records regulations: The Federal rules restrict any use of the information to criminally investigate or prosecute any alcohol or drug abuse patient.[facility] CenterIn the event this information is protected by the Federal Confidentiality of Alcohol and Drug Abuse Patient Records regulations: The Federal rules restrict any use of the information to criminally investigate or prosecute any alcohol or drug abuse patient.[facility] CenterIn the event this information is protected by the Federal Confidentiality of Alcohol and Drug Abuse Patient Records regulations: The Federal rules restrict any use of the information to criminally investigate or prosecute any alcohol or drug abuse patient.[facility] CenterIn the event this information is protected by the Federal Confidentiality of Alcohol and Drug Abuse Patient Records regulations: The Federal rules restrict any use of the information to criminally investigate or prosecute any alcohol or drug abuse patient.[facility] CenterIn the event this information is protected by the Federal Confidentiality of Alcohol and Drug Abuse Patient Records regulations: The Federal rules restrict any use of the information to criminally investigate or prosecute any alcohol or drug abuse patient.[facility] CenterIn the event this information is protected by the Federal Confidentiality of Alcohol and Drug Abuse Patient Records regulations: The Federal rules restrict any use of the information to criminally investigate or prosecute any alcohol or drug abuse patient.[facility] CenterIn the event this information is protected by the Federal Confidentiality of Alcohol and Drug Abuse Patient Records regulations: The Federal rules restrict any use of the information to criminally investigate or prosecute any alcohol or drug abuse patient.[facility] CenterIn the event this information is protected by the Federal Confidentiality of Alcohol and Drug Abuse Patient Records regulations: The Federal rules restrict any use of the information to criminally investigate or prosecute any alcohol or drug abuse patient.[facility] CenterIn the event this information is protected by the Federal Confidentiality of Alcohol and Drug Abuse Patient Records regulations: The Federal rules restrict any use of the information to criminally investigate or prosecute any alcohol or drug abuse patient.[facility] CenterIn the event this information is protected by the Federal Confidentiality of Alcohol and Drug Abuse Patient Records regulations: The Federal rules restrict any use of the information to criminally investigate or prosecute any alcohol or drug abuse patient.[facility] CenterIn the event this information is protected by the Federal Confidentiality of Alcohol and Drug Abuse Patient Records regulations: The Federal rules restrict any use of the information to criminally investigate or prosecute any alcohol or drug abuse patient.[facility] CenterIn the event this information is protected by the Federal Confidentiality of Alcohol and Drug Abuse Patient Records regulations: The Federal rules restrict any use of the information to criminally investigate or prosecute any alcohol or drug abuse patient.[facility] CenterIn the event this information is protected by the Federal Confidentiality of Alcohol and Drug Abuse Patient Records regulations: The Federal rules restrict any use of the information to criminally investigate or prosecute any alcohol or drug abuse patient.[facility] CenterIn the event this information is protected by the Federal Confidentiality of Alcohol and Drug Abuse Patient Records regulations: The Federal rules restrict any use of the information to criminally investigate or prosecute any alcohol or drug abuse patient.[facility] CenterIn the event this information is protected by the Federal Confidentiality of Alcohol and Drug Abuse Patient Records regulations: The Federal rules restrict any use of the information to criminally investigate or prosecute any alcohol or drug abuse patient.[facility] CenterIn the event this information is protected by the Federal Confidentiality of Alcohol and Drug Abuse Patient Records regulations: The Federal rules restrict any use of the information to criminally investigate or prosecute any alcohol or drug abuse patient.[facility] CenterIn the event this information is protected by the Federal Confidentiality of Alcohol and Drug Abuse Patient Records regulations: The Federal rules restrict any use of the information to criminally investigate or prosecute any alcohol or drug abuse patient.[facility] CenterIn the event this information is protected by the Federal Confidentiality of Alcohol and Drug Abuse Patient Records regulations: The Federal rules restrict any use of the information to criminally investigate or prosecute any alcohol or drug abuse patient.[facility] CenterIn the event this information is protected by the Federal Confidentiality of Alcohol and Drug Abuse Patient Records regulations: The Federal rules restrict any use of the information to criminally investigate or prosecute any alcohol or drug abuse patient.[facility] CenterIn the event this information is protected by the Federal Confidentiality of Alcohol and Drug Abuse Patient Records regulations: The Federal rules restrict any use of the information to criminally investigate or prosecute any alcohol or drug abuse patient.[facility] CenterIn the event this information is protected by the Federal Confidentiality of Alcohol and Drug Abuse Patient Records regulations: The Federal rules restrict any use of the information to criminally investigate or prosecute any alcohol or drug abuse patient.[facility] CenterIn the event this information is protected by the Federal Confidentiality of Alcohol and Drug Abuse Patient Records regulations: The Federal rules restrict any use of the information to criminally investigate or prosecute any alcohol or drug abuse patient.[facility] CenterIn the event this information is protected by the Federal Confidentiality of Alcohol and Drug Abuse Patient Records regulations: The Federal rules restrict any use of the information to criminally investigate or prosecute any alcohol or drug abuse patient.[facility] CenterIn the event this information is protected by the Federal Confidentiality of Alcohol and Drug Abuse Patient Records regulations: The Federal rules restrict any use of the information to criminally investigate or prosecute any alcohol or drug abuse patient.[facility] CenterIn the event this information is protected by the Federal Confidentiality of Alcohol and Drug Abuse Patient Records regulations: The Federal rules restrict any use of the information to criminally investigate or prosecute any alcohol or drug abuse patient.[facility] CenterIn the event this information is protected by the Federal Confidentiality of Alcohol and Drug Abuse Patient Records regulations: The Federal rules restrict any use of the information to criminally investigate or prosecute any alcohol or drug abuse patient.[facility] CenterIn the event this information is protected by the Federal Confidentiality of Alcohol and Drug Abuse Patient Records regulations: The Federal rules restrict any use of the information to criminally investigate or prosecute any alcohol or drug abuse patient.[facility] CenterIn the event this information is protected by the Federal Confidentiality of Alcohol and Drug Abuse Patient Records regulations: The Federal rules restrict any use of the information to criminally investigate or prosecute any alcohol or drug abuse patient.[facility] CenterIn the event this information is protected by the Federal Confidentiality of Alcohol and Drug Abuse Patient Records regulations: The Federal rules restrict any use of the information to criminally investigate or prosecute any alcohol or drug abuse patient.[facility] CenterIn the event this information is protected by the Federal Confidentiality of Alcohol and Drug Abuse Patient Records regulations: The Federal rules restrict any use of the information to criminally investigate or prosecute any alcohol or drug abuse patient.[facility] CenterIn the event this information is protected by the Federal Confidentiality of Alcohol and Drug Abuse Patient Records regulations: The Federal rules restrict any use of the information to criminally investigate or prosecute any alcohol or drug abuse patient.[facility] CenterIn the event this information is protected by the Federal Confidentiality of Alcohol and Drug Abuse Patient Records regulations: The Federal rules restrict any use of the information to criminally investigate or prosecute any alcohol or drug abuse patient.[facility] CenterIn the event this information is protected by the Federal Confidentiality of Alcohol and Drug Abuse Patient Records regulations: The Federal rules restrict any use of the information to criminally investigate or prosecute any alcohol or drug abuse patient.[facility] CenterIn the event this information is protected by the Federal Confidentiality of Alcohol and Drug Abuse Patient Records regulations: The Federal rules restrict any use of the information to criminally investigate or prosecute any alcohol or drug abuse patient.[facility] CenterIn the event this information is protected by the Federal Confidentiality of Alcohol and Drug Abuse Patient Records regulations: The Federal rules restrict any use of the information to criminally investigate or prosecute any alcohol or drug abuse patient.[facility] CenterIn the event this information is protected by the Federal Confidentiality of Alcohol and Drug Abuse Patient Records regulations: The Federal rules restrict any use of the information to criminally investigate or prosecute any alcohol or drug abuse patient.[facility] CenterIn the event this information is protected by the Federal Confidentiality of Alcohol and Drug Abuse Patient Records regulations: The Federal rules restrict any use of the information to criminally investigate or prosecute any alcohol or drug abuse patient.[facility] CenterIn the event this information is protected by the Federal Confidentiality of Alcohol and Drug Abuse Patient Records regulations: The Federal rules restrict any use of the information to criminally investigate or prosecute any alcohol or drug abuse patient.[facility] CenterIn the event this information is protected by the Federal Confidentiality of Alcohol and Drug Abuse Patient Records regulations: The Federal rules restrict any use of the information to criminally investigate or prosecute any alcohol or drug abuse patient.[facility] CenterIn the event this information is protected by the Federal Confidentiality of Alcohol and Drug Abuse Patient Records regulations: The Federal rules restrict any use of the information to criminally investigate or prosecute any alcohol or drug abuse patient.[facility] CenterIn the event this information is protected by the Federal Confidentiality of Alcohol and Drug Abuse Patient Records regulations: The Federal rules restrict any use of the information to criminally investigate or prosecute any alcohol or drug abuse patient.[facility] CenterIn the event this information is protected by the Federal Confidentiality of Alcohol and Drug Abuse Patient Records regulations: The Federal rules restrict any use of the information to criminally investigate or prosecute any alcohol or drug abuse patient.[facility] CenterIn the event this information is protected by the Federal Confidentiality of Alcohol and Drug Abuse Patient Records regulations: The Federal rules restrict any use of the information to criminally investigate or prosecute any alcohol or drug abuse patient.[facility] CenterIn the event this information is protected by the Federal Confidentiality of Alcohol and Drug Abuse Patient Records regulations: The Federal rules restrict any use of the information to criminally investigate or prosecute any alcohol or drug abuse patient.[facility] CenterIn the event this information is protected by the Federal Confidentiality of Alcohol and Drug Abuse Patient Records regulations: The Federal rules restrict any use of the information to criminally investigate or prosecute any alcohol or drug abuse patient.[facility] CenterIn the event this information is protected by the Federal Confidentiality of Alcohol and Drug Abuse Patient Records regulations: The Federal rules restrict any use of the information to criminally investigate or prosecute any alcohol or drug abuse patient.[facility] CenterIn the event this information is protected by the Federal Confidentiality of Alcohol and Drug Abuse Patient Records regulations: The Federal rules restrict any use of the information to criminally investigate or prosecute any alcohol or drug abuse patient.[facility] CenterIn the event this information is protected by the Federal Confidentiality of Alcohol and Drug Abuse Patient Records regulations: The Federal rules restrict any use of the information to criminally investigate or prosecute any alcohol or drug abuse patient.[facility]In the event this information is protected by the Federal Confidentiality of Alcohol and Drug Abuse Patient Records regulations: The Federal rules restrict any use of the information to criminally investigate or prosecute any alcohol or drug abuse patient.[facility]In the event this information is protected by the Federal Confidentiality of Alcohol and Drug Abuse Patient Records regulations: The Federal rules restrict any use of the information to criminally investigate or prosecute any alcohol or drug abuse patient.[facility]In the event this information is protected by the Federal Confidentiality of Alcohol and Drug Abuse Patient Records regulations: The Federal rules restrict any use of the information to criminally investigate or prosecute any alcohol or drug abuse patient.[facility]In the event this information is protected by the Federal Confidentiality of Alcohol and Drug Abuse Patient Records regulations: The Federal rules restrict any use of the information to criminally investigate or prosecute any alcohol or drug abuse patient.[facility]In the event this information is protected by the Federal Confidentiality of Alcohol and Drug Abuse Patient Records regulations: The Federal rules restrict any use of the information to criminally investigate or prosecute any alcohol or drug abuse patient.[facility]In the event this information is protected by the Federal Confidentiality of Alcohol and Drug Abuse Patient Records regulations: The Federal rules restrict any use of the information to criminally investigate or prosecute any alcohol or drug abuse patient.[facility]In the event this information is protected by the Federal Confidentiality of Alcohol and Drug Abuse Patient Records regulations: The Federal rules restrict any use of the information to criminally investigate or prosecute any alcohol or drug abuse patient.[facility]In the event this information is protected by the Federal Confidentiality of Alcohol and Drug Abuse Patient Records regulations: The Federal rules restrict any use of the information to criminally investigate or prosecute any alcohol or drug abuse patient.[facility]In the event this information is protected by the Federal Confidentiality of Alcohol and Drug Abuse Patient Records regulations: The Federal rules restrict any use of the information to criminally investigate or prosecute any alcohol or drug abuse patient.[facility]In the event this information is protected by the Federal Confidentiality of Alcohol and Drug Abuse Patient Records regulations: The Federal rules restrict any use of the information to criminally investigate or prosecute any alcohol or drug abuse patient.[facility]In the event this information is protected by the Federal Confidentiality of Alcohol and Drug Abuse Patient Records regulations: The Federal rules restrict any use of the information to criminally investigate or prosecute any alcohol or drug abuse patient.[facility]In the event this information is protected by the Federal Confidentiality of Alcohol and Drug Abuse Patient Records regulations: The Federal rules restrict any use of the information to criminally investigate or prosecute any alcohol or drug abuse patient.[facility]In the event this information is protected by the Federal Confidentiality of Alcohol and Drug Abuse Patient Records regulations: The Federal rules restrict any use of the information to criminally investigate or prosecute any alcohol or drug abuse patient.[facility]In the event this information is protected by the Federal Confidentiality of Alcohol and Drug Abuse Patient Records regulations: The Federal rules restrict any use of the information to criminally investigate or prosecute any alcohol or drug abuse patient.[facility]In the event this information is protected by the Federal Confidentiality of Alcohol and Drug Abuse Patient Records regulations: The Federal rules restrict any use of the information to criminally investigate or prosecute any alcohol or drug abuse patient.[facility]In the event this information is protected by the Federal Confidentiality of Alcohol and Drug Abuse Patient Records regulations: The Federal rules restrict any use of the information to criminally investigate or prosecute any alcohol or drug abuse patient.[facility]In the event this information is protected by the Federal Confidentiality of Alcohol and Drug Abuse Patient Records regulations: The Federal rules restrict any use of the information to criminally investigate or prosecute any alcohol or drug abuse patient.[facility]In the event this information is protected by the Federal Confidentiality of Alcohol and Drug Abuse Patient Records regulations: The Federal rules restrict any use of the information to criminally investigate or prosecute any alcohol or drug abuse patient.[facility]In the event this information is protected by the Federal Confidentiality of Alcohol and Drug Abuse Patient Records regulations: The Federal rules restrict any use of the information to criminally investigate or prosecute any alcohol or drug abuse patient.[facility]In the event this information is protected by the Federal Confidentiality of Alcohol and Drug Abuse Patient Records regulations: The Federal rules restrict any use of the information to criminally investigate or prosecute any alcohol or drug abuse patient.[facility]In the event this information is protected by the Federal Confidentiality of Alcohol and Drug Abuse Patient Records regulations: The Federal rules restrict any use of the information to criminally investigate or prosecute any alcohol or drug abuse patient.[facility]In the event this information is protected by the Federal Confidentiality of Alcohol and Drug Abuse Patient Records regulations: The Federal rules restrict any use of the information to criminally investigate or prosecute any alcohol or drug abuse patient.[facility]In the event this information is protected by the Federal Confidentiality of Alcohol and Drug Abuse Patient Records regulations: The Federal rules restrict any use of the information to criminally investigate or prosecute any alcohol or drug abuse patient.[facility]In the event this information is protected by the Federal Confidentiality of Alcohol and Drug Abuse Patient Records regulations: The Federal rules restrict any use of the information to criminally investigate or prosecute any alcohol or drug abuse patient.[facility]In the event this information is protected by the Federal Confidentiality of Alcohol and Drug Abuse Patient Records regulations: The Federal rules restrict any use of the information to criminally investigate or prosecute any alcohol or drug abuse patient.[facility]In the event this information is protected by the Federal Confidentiality of Alcohol and Drug Abuse Patient Records regulations: The Federal rules restrict any use of the information to criminally investigate or prosecute any alcohol or drug abuse patient.[facility]In the event this information is protected by the Federal Confidentiality of Alcohol and Drug Abuse Patient Records regulations: The Federal rules restrict any use of the information to criminally investigate or prosecute any alcohol or drug abuse patient.[facility]In the event this information is protected by the Federal Confidentiality of Alcohol and Drug Abuse Patient Records regulations: The Federal rules restrict any use of the information to criminally investigate or prosecute any alcohol or drug abuse patient.[facility]In the event this information is protected by the Federal Confidentiality of Alcohol and Drug Abuse Patient Records regulations: The Federal rules restrict any use of the information to criminally investigate or prosecute any alcohol or drug abuse patient.[facility]In the event this information is protected by the Federal Confidentiality of Alcohol and Drug Abuse Patient Records regulations: The Federal rules restrict any use of the information to criminally investigate or prosecute any alcohol or drug abuse patient.[facility]In the event this information is protected by the Federal Confidentiality of Alcohol and Drug Abuse Patient Records regulations: The Federal rules restrict any use of the information to criminally investigate or prosecute any alcohol or drug abuse patient.[facility]In the event this information is protected by the Federal Confidentiality of Alcohol and Drug Abuse Patient Records regulations: The Federal rules restrict any use of the information to criminally investigate or prosecute any alcohol or drug abuse patient.[facility]In the event this information is protected by the Federal Confidentiality of Alcohol and Drug Abuse Patient Records regulations: The Federal rules restrict any use of the information to criminally investigate or prosecute any alcohol or drug abuse patient.[facility]In the event this information is protected by the Federal Confidentiality of Alcohol and Drug Abuse Patient Records regulations: The Federal rules restrict any use of the information to criminally investigate or prosecute any alcohol or drug abuse patient.[facility]In the event this information is protected by the Federal Confidentiality of Alcohol and Drug Abuse Patient Records regulations: The Federal rules restrict any use of the information to criminally investigate or prosecute any alcohol or drug abuse patient.[facility]In the event this information is protected by the Federal Confidentiality of Alcohol and Drug Abuse Patient Records regulations: The Federal rules restrict any use of the information to criminally investigate or prosecute any alcohol or drug abuse patient.[facility]In the event this information is protected by the Federal Confidentiality of Alcohol and Drug Abuse Patient Records regulations: The Federal rules restrict any use of the information to criminally investigate or prosecute any alcohol or drug abuse patient.[facility]In the event this information is protected by the Federal Confidentiality of Alcohol and Drug Abuse Patient Records regulations: The Federal rules restrict any use of the information to criminally investigate or prosecute any alcohol or drug abuse patient.[facility]In the event this information is protected by the Federal Confidentiality of Alcohol and Drug Abuse Patient Records regulations: The Federal rules restrict any use of the information to criminally investigate or prosecute any alcohol or drug abuse patient.[facility]In the event this information is protected by the Federal Confidentiality of Alcohol and Drug Abuse Patient Records regulations: The Federal rules restrict any use of the information to criminally investigate or prosecute any alcohol or drug abuse patient.[facility]In the event this information is protected by the Federal Confidentiality of Alcohol and Drug Abuse Patient Records regulations: The Federal rules restrict any use of the information to criminally investigate or prosecute any alcohol or drug abuse patient.[facility]In the event this information is protected by the Federal Confidentiality of Alcohol and Drug Abuse Patient Records regulations: The Federal rules restrict any use of the information to criminally investigate or prosecute any alcohol or drug abuse patient.[facility]In the event this information is protected by the Federal Confidentiality of Alcohol and Drug Abuse Patient Records regulations: The Federal rules restrict any use of the information to criminally investigate or prosecute any alcohol or drug abuse patient.[facility]In the event this information is protected by the Federal Confidentiality of Alcohol and Drug Abuse Patient Records regulations: The Federal rules restrict any use of the information to criminally investigate or prosecute any alcohol or drug abuse patient.[facility]In the event this information is protected by the Federal Confidentiality of Alcohol and Drug Abuse Patient Records regulations: The Federal rules restrict any use of the information to criminally investigate or prosecute any alcohol or drug abuse patient.[facility]In the event this information is protected by the Federal Confidentiality of Alcohol and Drug Abuse Patient Records regulations: The Federal rules restrict any use of the information to criminally investigate or prosecute any alcohol or drug abuse patient.[facility]In the event this information is protected by the Federal Confidentiality of Alcohol and Drug Abuse Patient Records regulations: The Federal rules restrict any use of the information to criminally investigate or prosecute any alcohol or drug abuse patient.[facility]In the event this information is protected by the Federal Confidentiality of Alcohol and Drug Abuse Patient Records regulations: The Federal rules restrict any use of the information to criminally investigate or prosecute any alcohol or drug abuse patient.[facility]In the event this information is protected by the Federal Confidentiality of Alcohol and Drug Abuse Patient Records regulations: The Federal rules restrict any use of the information to criminally investigate or prosecute any alcohol or drug abuse patient.[facility]In the event this information is protected by the Federal Confidentiality of Alcohol and Drug Abuse Patient Records regulations: The Federal rules restrict any use of the information to criminally investigate or prosecute any alcohol or drug abuse patient.[facility]In the event this information is protected by the Federal Confidentiality of Alcohol and Drug Abuse Patient Records regulations: The Federal rules restrict any use of the information to criminally investigate or prosecute any alcohol or drug abuse patient.[facility]In the event this information is protected by the Federal Confidentiality of Alcohol and Drug Abuse Patient Records regulations: The Federal rules restrict any use of the information to criminally investigate or prosecute any alcohol or drug abuse patient.[facility]In the event this information is protected by the Federal Confidentiality of Alcohol and Drug Abuse Patient Records regulations: The Federal rules restrict any use of the information to criminally investigate or prosecute any alcohol or drug abuse patient.[facility]In the event this information is protected by the Federal Confidentiality of Alcohol and Drug Abuse Patient Records regulations: The Federal rules restrict any use of the information to criminally investigate or prosecute any alcohol or drug abuse patient.[facility]In the event this information is protected by the Federal Confidentiality of Alcohol and Drug Abuse Patient Records regulations: The Federal rules restrict any use of the information to criminally investigate or prosecute any alcohol or drug abuse patient.[facility]In the event this information is protected by the Federal Confidentiality of Alcohol and Drug Abuse Patient Records regulations: The Federal rules restrict any use of the information to criminally investigate or prosecute any alcohol or drug abuse patient.[facility]In the event this information is protected by the Federal Confidentiality of Alcohol and Drug Abuse Patient Records regulations: The Federal rules restrict any use of the information to criminally investigate or prosecute any alcohol or drug abuse patient.[facility] CenterIn the event this information is protected by the Federal Confidentiality of Alcohol and Drug Abuse Patient Records regulations: The Federal rules restrict any use of the information to criminally investigate or prosecute any alcohol or drug abuse patient.[facility] CenterIn the event this information is protected by the Federal Confidentiality of Alcohol and Drug Abuse Patient Records regulations: The Federal rules restrict any use of the information to criminally investigate or prosecute any alcohol or drug abuse patient.[facility] CenterIn the event this information is protected by the Federal Confidentiality of Alcohol and Drug Abuse Patient Records regulations: The Federal rules restrict any use of the information to criminally investigate or prosecute any alcohol or drug abuse patient.[facility] CenterIn the event this information is protected by the Federal Confidentiality of Alcohol and Drug Abuse Patient Records regulations: The Federal rules restrict any use of the information to criminally investigate or prosecute any alcohol or drug abuse patient.[facility] CenterIn the event this information is protected by the Federal Confidentiality of Alcohol and Drug Abuse Patient Records regulations: The Federal rules restrict any use of the information to criminally investigate or prosecute any alcohol or drug abuse patient.[facility] CenterIn the event this information is protected by the Federal Confidentiality of Alcohol and Drug Abuse Patient Records regulations: The Federal rules restrict any use of the information to criminally investigate or prosecute any alcohol or drug abuse patient.[facility] CenterIn the event this information is protected by the Federal Confidentiality of Alcohol and Drug Abuse Patient Records regulations: The Federal rules restrict any use of the information to criminally investigate or prosecute any alcohol or drug abuse patient.[facility] CenterIn the event this information is protected by the Federal Confidentiality of Alcohol and Drug Abuse Patient Records regulations: The Federal rules restrict any use of the information to criminally investigate or prosecute any alcohol or drug abuse patient.[facility] CenterIn the event this information is protected by the Federal Confidentiality of Alcohol and Drug Abuse Patient Records regulations: The Federal rules restrict any use of the information to criminally investigate or prosecute any alcohol or drug abuse patient.[facility] CenterIn the event this information is protected by the Federal Confidentiality of Alcohol and Drug Abuse Patient Records regulations: The Federal rules restrict any use of the information to criminally investigate or prosecute any alcohol or drug abuse patient.[facility] CenterIn the event this information is protected by the Federal Confidentiality of Alcohol and Drug Abuse Patient Records regulations: The Federal rules restrict any use of the information to criminally investigate or prosecute any alcohol or drug abuse patient.[facility] CenterIn the event this information is protected by the Federal Confidentiality of Alcohol and Drug Abuse Patient Records regulations: The Federal rules restrict any use of the information to criminally investigate or prosecute any alcohol or drug abuse patient.[facility] CenterIn the event this information is protected by the Federal Confidentiality of Alcohol and Drug Abuse Patient Records regulations: The Federal rules restrict any use of the information to criminally investigate or prosecute any alcohol or drug abuse patient.[facility] CenterIn the event this information is protected by the Federal Confidentiality of Alcohol and Drug Abuse Patient Records regulations: The Federal rules restrict any use of the information to criminally investigate or prosecute any alcohol or drug abuse patient.[facility] CenterIn the event this information is protected by the Federal Confidentiality of Alcohol and Drug Abuse Patient Records regulations: The Federal rules restrict any use of the information to criminally investigate or prosecute any alcohol or drug abuse patient.[facility] CenterIn the event this information is protected by the Federal Confidentiality of Alcohol and Drug Abuse Patient Records regulations: The Federal rules restrict any use of the information to criminally investigate or prosecute any alcohol or drug abuse patient.[facility] CenterIn the event this information is protected by the Federal Confidentiality of Alcohol and Drug Abuse Patient Records regulations: The Federal rules restrict any use of the information to criminally investigate or prosecute any alcohol or drug abuse patient.[facility] CenterIn the event this information is protected by the Federal Confidentiality of Alcohol and Drug Abuse Patient Records regulations: The Federal rules restrict any use of the information to criminally investigate or prosecute any alcohol or drug abuse patient.[facility] CenterIn the event this information is protected by the Federal Confidentiality of Alcohol and Drug Abuse Patient Records regulations: The Federal rules restrict any use of the information to criminally investigate or prosecute any alcohol or drug abuse patient.[facility] CenterIn the event this information is protected by the Federal Confidentiality of Alcohol and Drug Abuse Patient Records regulations: The Federal rules restrict any use of the information to criminally investigate or prosecute any alcohol or drug abuse patient.[facility] CenterIn the event this information is protected by the Federal Confidentiality of Alcohol and Drug Abuse Patient Records regulations: The Federal rules restrict any use of the information to criminally investigate or prosecute any alcohol or drug abuse patient.[facility] CenterIn the event this information is protected by the Federal Confidentiality of Alcohol and Drug Abuse Patient Records regulations: The Federal rules restrict any use of the information to criminally investigate or prosecute any alcohol or drug abuse patient.[facility] CenterIn the event this information is protected by the Federal Confidentiality of Alcohol and Drug Abuse Patient Records regulations: The Federal rules restrict any use of the information to criminally investigate or prosecute any alcohol or drug abuse patient.[facility] CenterIn the event this information is protected by the Federal Confidentiality of Alcohol and Drug Abuse Patient Records regulations: The Federal rules restrict any use of the information to criminally investigate or prosecute any alcohol or drug abuse patient.[facility] CenterIn the event this information is protected by the Federal Confidentiality of Alcohol and Drug Abuse Patient Records regulations: The Federal rules restrict any use of the information to criminally investigate or prosecute any alcohol or drug abuse patient.[facility] CenterIn the event this information is protected by the Federal Confidentiality of Alcohol and Drug Abuse Patient Records regulations: The Federal rules restrict any use of the information to criminally investigate or prosecute any alcohol or drug abuse patient.[facility] CenterIn the event this information is protected by the Federal Confidentiality of Alcohol and Drug Abuse Patient Records regulations: The Federal rules restrict any use of the information to criminally investigate or prosecute any alcohol or drug abuse patient.[facility] CenterIn the event this information is protected by the Federal Confidentiality of Alcohol and Drug Abuse Patient Records regulations: The Federal rules restrict any use of the information to criminally investigate or prosecute any alcohol or drug abuse patient.[facility] CenterIn the event this information is protected by the Federal Confidentiality of Alcohol and Drug Abuse Patient Records regulations: The Federal rules restrict any use of the information to criminally investigate or prosecute any alcohol or drug abuse patient.[facility] CenterIn the event this information is protected by the Federal Confidentiality of Alcohol and Drug Abuse Patient Records regulations: The Federal rules restrict any use of the information to criminally investigate or prosecute any alcohol or drug abuse patient.[facility] CenterIn the event this information is protected by the Federal Confidentiality of Alcohol and Drug Abuse Patient Records regulations: The Federal rules restrict any use of the information to criminally investigate or prosecute any alcohol or drug abuse patient.[facility] Reason for Visit (unrecogniz ed section and content) Reason Comments Imm/Inj Specialty Diagnoses / Procedures Referred By Contac t Referred To Contact Diagnoses 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) Procedures DARBEPOETIN DAGMAR, [place] [address] [place] [address] Phone: tel: fax: Hematology/Oncology [address] [place] [address] Phone: tel: fax: Referral ID Status Reason Start Date Expiration Date V isits Requested Visits Authorized [id number] Authorized 03/13/2023 10/12/2024 99 99 Reason Comments Physical Therapy Specialty Diagnoses / Procedures Referred By Contac t Referred To Contact Physical Therapy / PHYSICAL THERAPY Diagnoses Left hip pain Procedures CONSULT TO PHYSICAL THERAPY PHYSICAL THERAPY EVALUATION HIGH COMPLEX 45 MINS Podlogar, DORIS Alexander.DIRECTOR OF HEALTH CARE MARKETING [address] [place] [address] Endy Curran, PT [address] [place] [address] Referral ID Status Reason Start Date Expiration Date Visits Requested Visits Authorized [id number] Authorized PCP Requested Referral Auto-Generate d Referral 04/07/2023 04/06/2024 99 99 Reason Comments PT Progress Note Specialty Diagnoses / Procedures Referred By Contac t Referred To Contact Diagnoses Prostate cancer (HCC) Sanjeev Aranda APRN.DIRECTOR OF HEALTH CARE MARKETING [address] [place] [address] Ryne [facility] [address] [place] [address] Referral ID Status Reason Start Date Expiration Date V isits Requested Visits Authorized [id number] Authorized 08/20/2022 11/18/2022 99 99 Specialty Diagnoses / Procedures Referred By Contac t Referred To Contact Diagnoses 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) Procedures DARBEPOETIN DAGMAR, [place] [address] [place] [address] Ryne [facility] [address] [place] [address] Referral ID Status Reason Start Date Expiration Date V isits Requested Visits Authorized [id number] Pending Review 03/13/2023 10/22/2023 99 99 Referral ID Status Reason Start Date Expiration Date V isits Requested Visits Authorized [id number] Pending Review 03/13/2023 07/03/2023 99 99 Referral ID Status Reason Start Date Expiration Date V isits Requested Visits Authorized [id number] Authorized 08/20/2022 11/18/2022 99 99 Referral ID Status Reason Start Date Expiration Date V isits Requested Visits Authorized [id number] Pending Review 03/13/2023 05/08/2023 99 99 Reason Comments Refill Request Reason Comments Patient Update Insurance change/pha rmacy change Reason Comments Insurance Change for Xgeva Reason Comments Prostate Cancer Reason Comments Opened In Error Reason Onset Date Comments Refill Request 07/23/2021 Reason Onset Date Comments Refill Request 07/25/2021 Reason Comments Nurse Visit Reason Comments Radiology NM Reason Comments Established Patient Reason Comments Social Work Services Reason Comments Prostate Problem Specialty Diagnoses / Procedures Referred By Contac t Referred To Contact Urology Diagnoses BPH with elevated PSA Procedures CONSULT TO UROLOGY NEW PATIENT VISIT LEVEL 5 Lillian Clemente MD [address] [facility] [place] [address] Referral ID Status Reason Start Date Expiration Date V isits Requested Visits Authorized [id number] Closed PCP Requested Referral 03/13/2021 03/13/2022 1 1 Reason Comments New Patient Up every 1-1 1/2 lexis rs at night to void. Prostate Cancer Specialty Diagnoses / Procedures Referred By Leslee esquivel Referred To Contact Medical Oncology / Oncology Diagnoses metastatic prostate cancer/ pt orginally dx with elavted PSA back in mar 2021/ saw urologist at Dr. Sp Mckeon had bx, MRI and Bone scasn through [facility]/recs in careeverywhere/also seeing hem onc Dr. Lillian Clemente at Procedures NEW ONCOLOGY Self, Self Monk III, Jazlyn Burciaga MD [address] [place] [address] Referral ID Status Reason Start Date Expiration Date V isits Requested Visits Authorized [id number] New Request 09/04/2021 09/29/2022 1 1 Reason Comments Follow Up Wanting colonoscopy scheduled. Reason Comments Full Body Skin Check Reason Onset Date Comments Refill Request 01/02/2022 Reason Comments Established Patient Reason Comments Results Reason Comments Follow Up Reason Onset Date Comments Refill Request 04/17/2022 Reason Comments Results Genetic test results - negative Reason Comments Hair/Scalp Problem Reason Comments Lab Orders Reason Onset Date Comments Refill Request 08/12/2022 Refill Request 09/12/2022 Reason Comments Skin Check Reason Comments Consult External hemorrhoid, thrombosed Specialty Diagnoses / Procedures Referred By Leslee esquivel Referred To Contact General Surgery Diagnoses External hemorrhoid, thrombosed Procedures CONSULT TO GENERAL SURGERY OFFICE/OUTPATIENT NEW HIGH MDM 60-74 MINUTES Arsalan Ocampo MD [address] [place] [address] Referral ID Status Reason Start Date Expiration Date V isits Requested Visits Authorized [id number] Closed PCP Requested Referral 10/30/2022 10/30/2023 1 1 Reason Onset Date Comments Refill Request 01/14/2023 Reason Onset Date Comments Refill Request 02/18/2023 Reason Comments Patient Update Aranesp order Reason Onset Date Comments Refill Request 05/16/2023 Reason Comments Discussion Oncology Dr. Vanda ortiz encouraged patient to discuss stress test with primary care. Patient is complaining to back pain by waist line that has been intense the last 3-4 days. Reason Comments Reminder Call Reason Onset Date Comments Refill Request 06/17/2023 Reason Comments Patient Question Reason Comments Appointment Reason Comments Patient Update aranesp Reason Onset Date Comments Refill Request 09/10/2023 Reason Onset Date Comments Refill Request 10/03/2023 Reason Comments New Patient New Pt: PCP consult for chest pain and SOB. EKG 06/11/2023Echo 07/03/2023Stress test 06/17/2023t has episodes of activity based chest pain. Pt is on cancer with mets therapy Specialty Diagnoses / Procedures Referred By Contac t Referred To Contact Cardiology Diagnoses SOB (shortness of breath) Chest pain, unspecified type Procedures CONSULT TO CARDIOLOGY OFFICE/OUTPATIENT NEW HIGH MDM 60 MINUTES Podlogar, DORIS Alexander.DIRECTOR OF HEALTH CARE MARKETING [address] [place] [address] Referral ID Status Reason Start Date Expiration Date V isits Requested Visits Authorized [id number] Closed PCP Requested Referral 06/11/2023 06/10/2024 1 1 Reason Onset Date Comments Refill Request 11/15/2023 Specialty Diagnoses / Procedures Referred By Contac t Referred To Contact CT IMAGING Diagnoses Prostate cancer metastatic to bone (HCC) Abdominal pain, unspecified abdominal location Acute left-sided low back pain, unspecified whether sciatica present Procedures CT LUMBAR SPINE W IVCON CT LUMBAR SPINE W IVCON CT LUMBAR SPINE W/CONTRAST MATERIAL Tee Ellis [address] [place] [address] [facility] [place] [address] Referral ID Status Reason Start Date Expiration Date V isits Requested Visits Authorized [id number] Closed Auto-Generate d Referral 12/05/2023 01/03/2025 1 1 Referral ID Status Reason Start Date Expiration Date V isits Requested Visits Authorized [id number] Authorized 03/13/2023 12/16/2023 99 99 Reason Comments Pain Left hip/lower back pain for the last 8 months, this flare up is lasting 7 weeks. Noticed it initially started when oncology started a new med. Reason Comments Results hip xray results Referral ID Status Reason Start Date Expiration Date V isits Requested Visits Authorized [id number] Pending Review 03/13/2023 06/24/2024 99 99 Reason Comments PT Eval Reason Comments Groin Pain Reason Comments Insurance Authorization cyclobenzaprine Referral ID Status Reason Start Date Expiration Date V isits Requested Visits Authorized [id number] Authorized 03/13/2023 08/10/2024 99 99 Reason Comments Medicare Wellness Exam Reason Onset Date Comments Refill Request 03/15/2024 Reason Comments Actinic Keratosis Reason Comments New Pain Referred by Dr. Herring Last seen 01/06/17 biceps tendinitis Specialty Diagnoses / Procedures Referred By Contac t Referred To Contact Orthopedics Diagnoses Right hip pain Procedures CONSULT TO ORTHOPAEDICS OFFICE/OUTPATIENT NEW HIGH M[place] 60 [place] [address] [place] [id number] Referral ID Status Reason Start Date Expiration Date V isits Requested Visits Authorized [id number] Closed PCP Requested Referral 01/21/2024 01/20/2025 1 1 Reason Comments Appointment Appointment cancelle d Reason Comments LESION, SKIN Reason Comments SKIN CANCER Reason Onset Date Comments Refill Request 05/18/2024 Reason Comments Mohs Specialty Diagnoses / Procedures Referred By Contac t Referred To Contact Dermatology Diagnoses Squamous cell carcinoma of scalp Procedures MOHS OFFICE/OUTPATIENT NEW HIGH MDM 60 MINUTES Richie eDjesus MD [address] [place] [address] Phone: tel: fax: Referral ID Status Reason Start Date Expiration Date V isits Requested Visits Authorized [id number] Closed PCP Requested Referral 2024 2025 1 1 Reason Comments Consult Specialty Diagnoses / Procedures Referred By Contac t Referred To Contact Radiation Oncology Diagnoses Squamous cell carcinoma of scalp Procedures RAD/ONC CONSULT OFFICE/OUTPATIENT NEW HIGH MDM 60 MINUTES Madelaine Bronson MD [address] [place] [address] Phone: tel: fax: Referral ID Status Reason Start Date Expiration Date V isits Requested Visits Authorized [id number] Closed PCP Requested Referral 06/17/2024 06/17/2025 1 1 Specialty Diagnoses / Procedures Referred By Contac t Referred To Contact Diagnoses 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) Procedures DARBEPOETIN DAGMAR, NON-ESRD Dereje Herring MD [address] [place] [address] Phone: tel: Hematology/Oncology [address] [place] [address] Phone: tel: fax: Reason Comments Follow Up C/o SOB w/ Mild Acti vityEdema Bilat feet/anklesChronic HS coughDr Heather f/u DX: SOB, Chest painEKG TodayStress 11/12/23ECHO 07/03/23Stress 06/17/23 Reason Comments Imm/Inj SQ Specialty Diagnoses / Procedures Referred By Leslee t Referred To Contact Diagnoses Prostate cancer (HCC) Sanjeev Aranda APRN.DIRECTOR OF HEALTH CARE MARKETING [address] [place] [address] Phone: tel: fax: Sanjeev Aranda APRN.DIRECTOR OF HEALTH CARE MARKETING [address] [place] [address] Phone: tel: fax: Referral ID Status Reason Start Date Expiration Date V isits Requested Visits Authorized [id number] Authorized 03/02/2025 05/31/2025 99 99 Care Teams (unrecognized sec tion and content) Financial Specialist Relationship Specialty Start Date End Date Arsalan Ocampo MD [address] [place], [place] [id number] PCP - General Family Practice 12/08/20 Natalya Dorsey RN [address] [place] [address] Wastewater Manager Hematology/Oncology 05/03/21 Financial Specialist Relationship Specialty Start Date End Date Arsalan Ocampo MD [address] [place], [place] [phone] PCP - General Family Practice 12/08/20 Natalya Dorsey RN [address] [place] [address] Wastewater Manager Hematology/Oncology 05/03/21 Financial Specialist Relationship Specialty Start Date End Date Arsalan Ocampo MD [address] [facility] [place] [address] PCP - General Family Practice 12/08/20 Natalya Dorsey RN [address] [place] [address] Wastewater Manager Hematology/Oncology 05/03/21 Financial Specialist Relationship Specialty Start Date End Date Arsalan Ocampo MD [address] [facility] [address] PCP - General Family Practice 12/08/20 Natalya Dorsey RN [address] [place] [address] Wastewater Manager Hematology/Oncology 05/03/21 Financial Specialist Relationship Specialty Start Date End Date Arsalan Ocampo MD [address] [facility] [place] [address] PCP - General Family Practice 12/08/20 Natalya Dorsey, ERIN [address] [address] Wastewater Manager Hematology/Oncology 05/03/21 Financial Specialist Relationship Specialty Start Date End Date Arsalan Ocampo MD [address] [facility] [address] PCP - General Family Practice 12/08/20 Natalya Dorsey, ERIN [address] [place] [address] Wastewater Manager Hematology/Oncology 05/03/21 Financial Specialist Relationship Specialty Start Date End Date Arsalan Ocampo MD [address] [facility] [place] [address] PCP - General Family Practice 12/08/20 Natalya Dorsey RN [address] [place] [address] Wastewater Manager Hematology/Oncology 05/03/21 Financial Specialist Relationship Specialty Start Date End Date Arsalan Ocampo MD [address] [facility] [facility] [place] [address] PCP - General Family Practice 12/08/20 Natalya Dorsey RN [address] [place] [address] Specialty Rubber Trimmer Hematology/Oncology 05/03/21 Financial Specialist Relationship Specialty Start Date End Date Arsalan Ocampo MD [address] [facility] [place] [address] PCP - General Family Practice 12/08/20 Natayla Dorsey RN [address] [place] [address] Specialty Rubber Trimmer Hematology/Oncology 05/03/21 Financial Specialist Relationship Specialty Start Date End Date Arsalan Ocampo MD [address] [facility] [place] [address] PCP - General Family Practice 12/08/20 Natalya Dorsey RN [address] [place] [address] Specialty Rubber Trimmer Hematology/Oncology 05/03/21 Financial Specialist Relationship Specialty Start Date End Date Arsalan Ocampo MD [address] [place] [address] PCP - General Family Practice 12/08/20 Natalya Dorsey RN [address] [place] [address] Specialty Rubber Trimmer Hematology/Oncology 05/03/21 Financial Specialist Relationship Specialty Start Date End Date Arsalan Ocampo MD [address] [facility] [place] [address] PCP - General Family Practice 12/08/20 Natalya Dorsey RN [address] [place] [address] Specialty Rubber Trimmer Hematology/Oncology 05/03/21 Financial Specialist Relationship Specialty Start Date End Date Arsalan Ocampo MD [address] [facility] [place] [address] PCP - General Family Practice 12/08/20 Natalya Dorsey RN [address] [place] [address] Specialty Rubber Trimmer Hematology/Oncology 05/03/21 Financial Specialist Relationship Specialty Start Date End Date Arsalan Ocampo MD [address] [facility] [place] [address] PCP - General Family Practice 12/08/20 Natalya Dorsey RN [address] [place] [address] Specialty Rubber Trimmer Hematology/Oncology 05/03/21 Financial Specialist Relationship Specialty Start Date End Date Arsalan Ocampo MD [address] [facility] [place] [address] PCP - General Family Practice 12/08/20 Natalya Dorsey RN [address] [place] [address] Specialty Rubber Trimmer Hematology/Oncology 05/03/21 Financial Specialist Relationship Specialty Start Date End Date Arsalan Ocampo MD [address] [place] [address] PCP - General Family Medicine 12/08/20 Natalya Dorsey RN [address] [place] [address] Specialty Rubber Trimmer Hematology/Oncology 05/03/21 Financial Specialist Relationship Specialty Start Date End Date Arsalan Ocampo MD [address] [facility] [place] [address] PCP - General Family Medicine 12/08/20 Natalya Dorsey RN [address] [place] [address] Specialty Rubber Trimmer Hematology/Oncology 05/03/21 Financial Specialist Relationship Specialty Start Date End Date Arsalan Ocampo MD [address] [facility] [place] [address] PCP - General Family Medicine 12/08/20 Natalya Dorsey RN [address] [place] [address] Specialty Rubber Trimmer Hematology/Oncology 05/03/21 Financial Specialist Relationship Specialty Start Date End Date Arsalan Ocampo MD [address] [place] [address] PCP - General Family Medicine 12/08/20 Natalya Dosrey RN [address] [place] [address] Specialty Rubber Trimmer Hematology/Oncology 05/03/21 Financial Specialist Relationship Specialty Start Date End Date Arsalan Ocampo MD [address] [place] [address] PCP - General Family Medicine 12/08/20 Natalya Dorsey RN [address] [place] [address] Specialty Rubber Trimmer Hematology/Oncology 05/03/21 Financial Specialist Relationship Specialty Start Date End Date Arsalan Ocampo MD [address] [facility] [place] [address] PCP - General Family Medicine 12/08/20 Natalya Dorsey RN [address] [place] [address] Specialty Rubber Trimmer Hematology/Oncology 05/03/21 Financial Specialist Relationship Specialty Start Date End Date Arsalan Ocampo MD [address] [place] [address] PCP - General Family Medicine 12/08/20 Natalya Dorsey, ERIN [address] [place] [address] Specialty Rubber Trimmer Hematology/Oncology 05/03/21 Financial Specialist Relationship Specialty Start Date End Date Arsalan Ocampo MD [address] [place] [address] PCP - General Family Medicine 12/08/20 Natalya Dorsey, ERIN [address] [place] [address] Specialty Rubber Trimmer Hematology/Oncology 05/03/21 Financial Specialist Relationship Specialty Start Date End Date Arsalan Ocampo MD [address] [place] [address] PCP - General Family Medicine 12/08/20 Natalya Dorsey, ERIN [address] [place] [address] Specialty Rubber Trimmer Hematology/Oncology 05/03/21 Financial Specialist Relationship Specialty Start Date End Date Arsalan Ocampo MD [address] [place] [address] PCP - General Family Medicine 12/08/20 Natalya Dorsey RN [address] [place] [address] Specialty Rubber Trimmer Hematology/Oncology 05/03/21 Financial Specialist Relationship Specialty Start Date End Date Arsalan Ocampo MD [address] [facility] [address] PCP - General Family Medicine 12/08/20 Natalya Dorsey RN [address] [place] [address] Specialty Rubber Trimmer Hematology/Oncology 05/03/21 Financial Specialist Relationship Specialty Start Date End Date Arsalan Ocampo MD [address] [place] [address] PCP - General Family Medicine 12/08/20 Natalya Dorsey RN [address] [place] [address] Specialty Rubber Trimmer Hematology/Oncology 05/03/21 Financial Specialist Relationship Specialty Start Date End Date Arsalan Ocampo MD [address] [place] [address] PCP - General Family Medicine 12/08/20 Natalya Dorsey RN [address] [place] [address] Specialty Rubber Trimmer Hematology/Oncology 05/03/21 Financial Specialist Relationship Specialty Start Date End Date Arsalan Ocampo MD [address] [place] [address] PCP - General Family Medicine 12/08/20 aNtalya Dorsey RN [address] [place] [address] Specialty Rubber Trimmer Hematology/Oncology 05/03/21 Financial Specialist Relationship Specialty Start Date End Date Arsalan Ocampo MD [address] [facility] [place] [address] PCP - General Family Medicine 12/08/20 Natalya Dorsey RN [address] [address] Specialty Rubber Trimmer Hematology/Oncology 05/03/21 Financial Specialist Relationship Specialty Start Date End Date Arsalan Ocampo MD [address] [place] [address] PCP - General Family Medicine 12/08/20 Natalya Dorsey RN [address] [place] [address] Specialty Rubber Trimmer Hematology/Oncology 05/03/21 Financial Specialist Relationship Specialty Start Date End Date Arsalan Ocampo MD [address] [place] [address] PCP - General Family Medicine 12/08/20 Natalya Dorsey RN [address] [facility] [place] [address] Specialty Rubber Trimmer Hematology/Oncology 05/03/21 Financial Specialist Relationship Specialty Start Date End Date Arsalan Ocampo MD [address] [place] [address] PCP - General Family Medicine 12/08/20 Natalya Dorsey RN [address] [place] [place] [address] Specialty Rubber Trimmer Hematology/Oncology 05/03/21 Financial Specialist Relationship Specialty Start Date End Date Arsalan Ocampo MD [address] [facility] [place] [address] PCP - General Family Medicine 12/08/20 Natalya Dorsey RN [address] [place] [address] Specialty Rubber Trimmer Hematology/Oncology 05/03/21 Financial Specialist Relationship Specialty Start Date End Date Arsalan Ocampo MD [address] [facility] [place] [address] PCP - General Family Medicine 12/08/20 Natalya Dorsey RN [address] [place] [address] Specialty Rubber Trimmer Hematology/Oncology 05/03/21 Financial Specialist Relationship Specialty Start Date End Date Arsalan Ocampo MD [address] [facility] [place] [address] PCP - General Family Medicine 12/08/20 Natalya Dorsey RN [address] [place] [address] Specialty Rubber Trimmer Hematology/Oncology 05/03/21 Financial Specialist Relationship Specialty Start Date End Date Arsalan Ocampo MD [address] [facility] [place] [address] PCP - General Family Medicine 12/08/20 Natalya Dorsey RN [address] [place] [address] Specialty Rubber Trimmer Hematology/Oncology 05/03/21 Financial Specialist Relationship Specialty Start Date End Date Arsalan Ocampo MD [address] [facility] [place] [address] PCP - General Family Medicine 12/08/20 Natalya Dorsey RN [address] [place] [address] Specialty Rubber Trimmer Hematology/Oncology 05/03/21 Financial Specialist Relationship Specialty Start Date End Date Arsalan Ocampo MD [address] [facility] [place] [address] PCP - General Family Medicine 12/08/20 Natalya Dorsey, RN [address] [place] [address] Specialty Rubber Trimmer Hematology/Oncology 05/03/21 Financial Specialist Relationship Specialty Start Date End Date Arsalan Ocampo MD [address] [facility] [address] PCP - General Family Medicine 12/08/20 Natalya Dorsey RN [address] [facility] [place] [address] Specialty Rubber Trimmer Hematology/Oncology 05/03/21 Financial Specialist Relationship Specialty Start Date End Date Arsalan Ocampo MD [address] [facility] [place] [address] PCP - General Family Medicine 12/08/20 Natalya Dorsey RN [address] [place] [address] Specialty Rubber Trimmer Hematology/Oncology 05/03/21 Financial Specialist Relationship Specialty Start Date End Date Arsalan Ocampo MD [address] [place] [address] PCP - General Family Medicine 12/08/20 Natalya Dorsey RN [address] [place] [address] Specialty Rubber Trimmer Hematology/Oncology 05/03/21 Dereje Herring MD [address] [place] [address] Hematology/Oncology 03/13/23 Financial Specialist Relationship Specialty Start Date End Date Arsalan Ocampo MD [address] [place] [address] PCP - General Family Medicine 12/08/20 Natalya Dorsey RN [address] [place] [address] Specialty Rubber Trimmer Hematology/Oncology 05/03/21 Dereje Herring MD [address] [place] [address] Hematology/Oncology 03/13/23 Financial Specialist Relationship Specialty Start Date End Date Arsalan Ocampo MD [address] [place] [address] PCP - General Family Medicine 12/08/20 Natalya Dorsey RN [address] [place] [address] Specialty Rubber Trimmer Hematology/Oncology 05/03/21 Dereje Herring MD [address] [place] [address] Hematology/Oncology 03/13/23 Financial Specialist Relationship Specialty Start Date End Date Arsalan Ocampo MD [address] [place] [address] PCP - General Family Medicine 12/08/20 Natalya Dorsey, RN [address] [place] [address] Specialty Rubber Trimmer Hematology/Oncology 05/03/21 Dereje Herring MD [address] [place] [address] Hematology/Oncology 03/13/23 Financial Specialist Relationship Specialty Start Date End Date Arsalan Ocampo MD [address] [place] [address] PCP - General Family Medicine 12/08/20 Natalya Dorsey, ERIN [address] [place] [address] Specialty Rubber Trimmer Hematology/Oncology 05/03/21 Dereje Herring MD [address] [place] [address] Hematology/Oncology 03/13/23 Financial Specialist Relationship Specialty Start Date End Date Arsalan Ocampo MD [address] [place] [address] PCP - General Family Medicine 12/08/20 Natalya Dorsey, ERIN [address] [place] [address] Specialty Rubber Trimmer Hematology/Oncology 05/03/21 Dereje Herring MD [address] [place] [address] Hematology/Oncology 03/13/23 Financial Specialist Relationship Specialty Start Date End Date Arsalan Ocampo MD [address] [place] [address] PCP - General Family Medicine 12/08/20 Natalya Dorsey, ERIN [address] [place] [address] Specialty Rubber Trimmer Hematology/Oncology 05/03/21 Dereje Herring MD [address] [place] [address] Hematology/Oncology 03/13/23 Financial Specialist Relationship Specialty Start Date End Date Arsalan Ocampo MD [address] [place] [address] PCP - General Family Medicine 12/08/20 Natalya Dorsey RN [address] [place] [address] Specialty Rubber Trimmer Hematology/Oncology 05/03/21 Dereje Herring MD [address] [place] [address] Hematology/Oncology 03/13/23 Financial Specialist Relationship Specialty Start Date End Date Arsalan Ocampo MD [address] [place] [address] PCP - General Family Medicine 12/08/20 Natalya Dorsey, ERIN [address] [place] [address] Specialty Rubber Trimmer Hematology/Oncology 05/03/21 Dereje Herring MD [address] [place] [address] Hematology/Oncology 03/13/23 Financial Specialist Relationship Specialty Start Date End Date Arsalan Ocampo MD [address] [place] [address] PCP - General Family Medicine 12/08/20 Natalya Dorsey, ERIN [address] [place] [address] Specialty Rubber Trimmer Hematology/Oncology 05/03/21 Dereje Herring MD [address] [place] [address] Hematology/Oncology 03/13/23 Financial Specialist Relationship Specialty Start Date End Date Arsalan Ocampo MD [address] [place] [address] PCP - General Family Medicine 12/08/20 Natalya Dorsey RN [address] [place] [address] Specialty Rubber Trimmer Hematology/Oncology 05/03/21 Dereje Herring MD [address] [place] [address] Hematology/Oncology 03/13/23 Financial Specialist Relationship Specialty Start Date End Date Arsalan Ocampo MD [address] [place] [address] PCP - General Family Medicine 12/08/20 Natalya Dorsey RN [address] [place] [address] Specialty Rubber Trimmer Hematology/Oncology 05/03/21 Dereje Herring MD [address] [place] [address] Hematology/Oncology 03/13/23 Financial Specialist Relationship Specialty Start Date End Date Arsalan Ocampo MD [address] [place] [address] PCP - General Family Medicine 12/08/20 Natalya Dorsey, ERIN [address] [place] [address] Specialty Rubber Trimmer Hematology/Oncology 05/03/21 Dereje Herring MD [address] [place] [address] Hematology/Oncology 03/13/23 Financial Specialist Relationship Specialty Start Date End Date Arsalan Ocampo MD [address] [place] [address] PCP - General Family Medicine 12/08/20 Natalya Dorsey, ERIN [address] [place] [address] Specialty Rubber Trimmer Hematology/Oncology 05/03/21 Dereje Herring MD [address] [place] [address] Hematology/Oncology 03/13/23 Financial Specialist Relationship Specialty Start Date End Date Arsalan Ocampo MD [address] [place] [address] PCP - General Family Medicine 12/08/20 Natalya Dorsey RN [address] [place] [address] Specialty Rubber Trimmer Hematology/Oncology 05/03/21 Dereje Herring MD [address] [place] [address] Hematology/Oncology 03/13/23 Financial Specialist Relationship Specialty Start Date End Date Arsalan Ocampo MD [address] [place] [address] PCP - General Family Medicine 12/08/20 Natalya Dorsey RN [address] [place] [address] Specialty Rubber Trimmer Hematology/Oncology 05/03/21 Dereje Herring MD [address] [place] [address] Hematology/Oncology 03/13/23 Financial Specialist Relationship Specialty Start Date End Date Arsalan Ocampo MD [address] [place] [address] PCP - General Family Medicine 12/08/20 Natalya Dorsey RN [address] [place] [address] Specialty Rubber Trimmer Hematology/Oncology 05/03/21 Dereje Herring MD [address] [place] [address] Hematology/Oncology 03/13/23 Financial Specialist Relationship Specialty Start Date End Date Arsalan Ocampo MD [address] [place] [address] PCP - General Family Medicine 12/08/20 Natalya Dorsey RN [address] [place] [address] Specialty Rubber Trimmer Hematology/Oncology 05/03/21 Dereje Herring MD [address] [place] [address] Hematology/Oncology 03/13/23 Financial Specialist Relationship Specialty Start Date End Date Arsalan Ocampo MD [address] [place] [address] PCP - General Family Medicine 12/08/20 Natalya Dorsey RN [address] [place] [address] Specialty Rubber Trimmer Hematology/Oncology 05/03/21 Dereje Herring MD [address] [place] [address] Hematology/Oncology 03/13/23 Financial Specialist Relationship Specialty Start Date End Date Arsalan Ocampo MD [address] [place] [address] PCP - General Family Medicine 12/08/20 Natalya Dorsey RN [address] [place] [address] Specialty Rubber Trimmer Hematology/Oncology 05/03/21 Dereje Herring MD [address] [place] [address] Hematology/Oncology 03/13/23 Financial Specialist Relationship Specialty Start Date End Date Arsalan Ocampo MD [address] [place] [address] PCP - General Family Medicine 12/08/20 Natalya Dorsey, RN [address] [place] [address] Specialty Rubber Trimmer Hematology/Oncology 05/03/21 Dereje Herring MD [address] [place] [address] Hematology/Oncology 03/13/23 Financial Specialist Relationship Specialty Start Date End Date Arsalan Ocampo MD [address] [place] [address] PCP - General Family Medicine 12/08/20 Natalya Dorsey RN [address] [place] [address] Specialty Rubber Trimmer Hematology/Oncology 05/03/21 Dereje Herring MD [address] [place] [address] Hematology/Oncology 03/13/23 Financial Specialist Relationship Specialty Start Date End Date Arsalan Ocampo MD [address] [place] [address] PCP - General Family Medicine 12/08/20 Natalya Dorsey, ERIN [address] [place] [address] Specialty Rubber Trimmer Hematology/Oncology 05/03/21 Dereje Herrign MD [address] [place] [address] Hematology/Oncology 03/13/23 Financial Specialist Relationship Specialty Start Date End Date Arsalan Ocampo MD [address] [place] [address] PCP - General Family Medicine 12/08/20 Natalya Dorsey, ERIN [address] [place] [address] Specialty Rubber Trimmer Hematology/Oncology 05/03/21 Dereje Herring MD [address] [place] [address] Hematology/Oncology 03/13/23 Financial Specialist Relationship Specialty Start Date End Date Arsalan Ocampo MD [address] [facility] [place] [address] PCP - General Family Medicine 12/08/20 Natalya Dorsey RN [address] [place] [address] Specialty Rubber Trimmer Hematology/Oncology 05/03/21 Dereje Herring MD [address] [place] [address] Hematology/Oncology 03/13/23 Financial Specialist Relationship Specialty Start Date End Date Arsalan Ocampo MD [address] [place] [address] PCP - General Family Medicine 12/08/20 Natalya Dorsey, RN [address] [place] [address] Specialty Rubber Trimmer Hematology/Oncology 05/03/21 Dereje Herring MD [address] [place] [address] Hematology/Oncology 03/13/23 Financial Specialist Relationship Specialty Start Date End Date Arsalan Ocampo MD [address] [place] [address] PCP - General Family Medicine 12/08/20 Natalya Dorsey, ERIN [address] [place] [address] Specialty Rubber Trimmer Hematology/Oncology 05/03/21 Dereje Herring MD [address] [place] [address] Hematology/Oncology 03/13/23 Financial Specialist Relationship Specialty Start Date End Date Arsalan Ocampo MD [address] [place] [address] PCP - General Family Medicine 12/08/20 Natalya Dorsey RN [address] [place] [address] Specialty Rubber Trimmer Hematology/Oncology 05/03/21 Dereje Herring MD [address] [place] [address] Hematology/Oncology 03/13/23 Financial Specialist Relationship Specialty Start Date End Date Arsalan Ocampo MD [address] [place] [address] PCP - General Family Medicine 12/08/20 Natalya Dorsey RN [address] [place] [address] Specialty Rubber Trimmer Hematology/Oncology 05/03/21 Dereje Herring MD [address] [place] [address] Hematology/Oncology 03/13/23 Financial Specialist Relationship Specialty Start Date End Date Arsalan Ocampo MD [address] [place] [address] PCP - General Family Medicine 12/08/20 Natalya Dorsey, ERIN [address] [place] [address] Specialty Rubber Trimmer Hematology/Oncology 05/03/21 Dereje Herring MD [address] [place] [address] Hematology/Oncology 03/13/23 Financial Specialist Relationship Specialty Start Date End Date Arsalan Ocampo MD [address] [place] [address] PCP - General Family Medicine 12/08/20 Natalya Dorsey RN [address] [place] [address] Specialty Rubber Trimmer Hematology/Oncology 05/03/21 Dereje Herring MD [address] [address] Hematology/Oncology 03/13/23 Financial Specialist Relationship Specialty Start Date End Date Arsalan Ocampo MD [address] [place] [address] PCP - General Family Medicine 12/08/20 Natalya DorseyERIN [address] [place] [address] Specialty Rubber Trimmer Hematology/Oncology 05/03/21 Dereje Herring MD [address] [place] [address] Hematology/Oncology 03/13/23 Financial Specialist Relationship Specialty Start Date End Date Arsalan Ocampo MD [address] [place] [address] PCP - General Family Medicine 12/08/20 Natalya Dorsey RN [address] [place] [address] Specialty Rubber Trimmer Hematology/Oncology 05/03/21 Dereje Herring MD [address] [place] [address] Hematology/Oncology 03/13/23 Financial Specialist Relationship Specialty Start Date End Date Arsalan Ocampo MD [address] [place] [address] PCP - General Family Medicine 12/08/20 Natalya Dorsey RN [address] [place] [address] Specialty Rubber Trimmer Hematology/Oncology 05/03/21 Dereje Herring MD [address] [place] [address] Hematology/Oncology 03/13/23 Financial Specialist Relationship Specialty Start Date End Date Arsalan Ocampo MD [address] [place] [address] PCP - General Family Medicine 12/08/20 Natalya Dorsey, ERIN [address] [place] [address] Specialty Rubber Trimmer Hematology/Oncology 05/03/21 Dereje Herring MD [address] [place] [address] Hematology/Oncology 03/13/23 Financial Specialist Relationship Specialty Start Date End Date Arsalan Ocampo MD [address] [place] [address] PCP - General Family Medicine 12/08/20 Natalya Dorsey RN [address] [place] [address] Specialty Rubber Trimmer Hematology/Oncology 05/03/21 Dereje Herirng MD [address] [place] [address] Hematology/Oncology 03/13/23 Financial Specialist Relationship Specialty Start Date End Date Arsalan Ocampo MD [address] [place] [address] PCP - General Family Medicine 12/08/20 Natalya Dorsey RN [address] [place] [address] Specialty Rubber Trimmer Hematology/Oncology 05/03/21 Dereje Herring MD [address] [place] [address] Hematology/Oncology 03/13/23 Financial Specialist Relationship Specialty Start Date End Date Arsalan Ocampo MD [address] [place] [address] PCP - General Family Medicine 12/08/20 Natalya Dorsey, ERIN [address] [place] [address] Specialty Rubber Trimmer Hematology/Oncology 05/03/21 Dereje Herring MD [address] [place] [address] Hematology/Oncology 03/13/23 PodlogarCatherine APRN.DIRECTOR OF HEALTH CARE MARKETING [address] [place] [address] Social Media Editor Family Medicine 03/13/24 Financial Specialist Relationship Specialty Start Date End Date Arsalan Ocampo MD [address] [place] [address] PCP - General Family Medicine 12/08/20 Natalya Dorsey RN [address] [place] [address] Specialty Rubber Trimmer Hematology/Oncology 05/03/21 Dereje Herring MD [address] [place] [address] Hematology/Oncology 03/13/23 PodlogarCatherine, COMMUNITY LIAISON OFFICER.DIRECTOR OF HEALTH CARE MARKETING [address] [place] [address] Social Media Editor Family Medicine 03/13/24 Financial Specialist Relationship Specialty Start Date End Date Arsalan Ocampo MD [address] [place] [address] PCP - General Family Medicine 12/08/20 Natalya Dorsey RN [address] [place] [address] Specialty Rubber Trimmer Hematology/Oncology 05/03/21 Dereje Herring MD [address] [place] [address] Hematology/Oncology 03/13/23 PodlogarCatherine COMMUNITY LIAISON OFFICER.DIRECTOR OF HEALTH CARE MARKETING [address] [place] [address] Social Media Editor Family Medicine 03/13/24 Financial Specialist Relationship Specialty Start Date End Date Arsalan Ocampo MD [address] [place] [address] PCP - General Family Medicine 12/08/20 Natalya Dorsey RN [address] [place] [address] Specialty Rubber Trimmer Hematology/Oncology 05/03/21 Dereje Herring MD [address] [place] [address] Hematology/Oncology 03/13/23 Podlogar, Catherine, COMMUNITY LIAISON OFFICER.DIRECTOR OF HEALTH CARE MARKETING [address] [place] [address] Social Media Editor Family Medicine 03/13/24 Financial Specialist Relationship Specialty Start Date End Date Arsalan Ocampo MD [address] [place] [address] PCP - General Family Medicine 12/08/20 Natalya Dorsey RN [address] [place] [address] Specialty Rubber Trimmer Hematology/Oncology 05/03/21 Dereje Herring MD [address] [place] [address] Hematology/Oncology 03/13/23 Financial Specialist Relationship Specialty Start Date End Date Arsalan Ocampo MD [address] [place] [address] PCP - General Family Medicine 12/08/20 Natalya Dorsey RN [address] [place] [address] Specialty Rubber Trimmer Hematology/Oncology 05/03/21 Dereje Herring MD [address] [place] [address] Hematology/Oncology 03/13/23 PodlogarCatherine APRN.CNP [address] [place] [address] Social Media Editor Family Medicine 03/13/24 Financial Specialist Relationship Specialty Start Date End Date Arsalan Ocampo MD [address] [place] [address] PCP - General Family Medicine 12/08/20 Natalya Dorsey RN [address] [place] [address] Specialty Rubber Trimmer Hematology/Oncology 05/03/21 Dereje Herring MD [address] [place] [address] Hematology/Oncology 03/13/23 Podlogar, DORIS Alexander.DIRECTOR OF HEALTH CARE MARKETING [address] [place] [address] Social Media [facility] 03/13/24 Financial Specialist Relationship Specialty Start Date End Date Arsalan Ocampo MD [address] [place] [address] PCP - General Family Medicine 12/08/20 Natalya Dorsey, ERIN [address] [place] [address] Specialty Rubber Trimmer Hematology/Oncology 05/03/21 Dereje Herring MD [address] [place] [address] Hematology/Oncology 03/13/23 Podlogar, Catherine, DORIS.DIRECTOR OF HEALTH CARE MARKETING [address] [place] [address] [facility] 03/13/24 Financial Specialist Relationship Specialty Start Date End Date Arsalan Ocampo MD [address] [place] [address] PCP - General Family Medicine 12/08/20 Natalya Dorsey, ERIN [address] [place] [address] Specialty Rubber Trimmer Hematology/Oncology 05/03/21 Dereje Herring MD [address] [place] [address] Hematology/Oncology 03/13/23 Podlogar, DORIS Alexander.DIRECTOR OF HEALTH CARE MARKETING [address] [place] [address] Social Media Editor Family Medicine 03/13/24 Financial Specialist Relationship Specialty Start Date End Date Arsalan Ocampo MD [address] [place] [address] PCP - General Family Medicine 12/08/20 Natalya Dorsey RN [address] [place] [address] Specialty Rubber Trimmer Hematology/Oncology 05/03/21 Dereje Herring MD [address] [place] [address] Hematology/Oncology 03/13/23 PodlogarCatherine APRN.DIRECTOR OF HEALTH CARE MARKETING [address] [place] [address] Social Media Editor Family Medicine 03/13/24 Financial Specialist Relationship Specialty Start Date End Date Arsalan Ocampo MD [address] [place] [address] PCP - General Family Medicine 12/08/20 Natalya Dorsey RN [address] [place] [address] Specialty Rubber Trimmer Hematology/Oncology 05/03/21 Dereje Herring MD [address] [place] [address] Hematology/Oncology 03/13/23 PodlogarCatherine APRN.DIRECTOR OF HEALTH CARE MARKETING [address] [place] [address] Social Media Editor Family Medicine 03/13/24 Financial Specialist Relationship Specialty Start Date End Date Arsalan Ocampo MD [address] [place] [address] PCP - General Family Medicine 12/08/20 Natalya Dorsey, ERIN [address] [place] [address] Specialty Rubber Trimmer Hematology/Oncology 05/03/21 Dereje Herring MD [address] [place] [address] Hematology/Oncology 03/13/23 PodlogarCatherine APRN.DIRECTOR OF HEALTH CARE MARKETING [address] [place] [address] Social Media Editor Family Medicine 03/13/24 Financial Specialist Relationship Specialty Start Date End Date Arsalan Ocampo MD [address] [place] [address] PCP - General Family Medicine 12/08/20 Natalya Dorsey, ERIN [address] [place] [address] Specialty Rubber Trimmer Hematology/Oncology 05/03/21 Dereje Herring MD [address] [place] [address] Hematology/Oncology 03/13/23 PodlogarCatherine APRN.DIRECTOR OF HEALTH CARE MARKETING [address] [place] [address] Social Media Editor Family Medicine 03/13/24 Financial Specialist Relationship Specialty Start Date End Date Arsalan Ocampo MD [address] [place] [address] PCP - General Family Medicine 12/08/20 Natalya Dorsey RN [address] [place] [address] Specialty Rubber Trimmer Hematology/Oncology 05/03/21 Dereje Herring MD [address] [place] [address] Hematology/Oncology 03/13/23 PodlogarCatherine, COMMUNITY LIAISON OFFICER.DIRECTOR OF HEALTH CARE MARKETING [address] [place] [address] Social Media Editor Family Medicine 03/13/24 Financial Specialist Relationship Specialty Start Date End Date Arsalan Ocampo MD [address] [place] [address] PCP - General Family Medicine 12/08/20 Natalya Dorsey RN [address] [place] [address] Specialty Rubber Trimmer Hematology/Oncology 05/03/21 Dereje Herring MD [address] [place] [address] Hematology/Oncology 03/13/23 Podlogar, Catherine, COMMUNITY LIAISON OFFICER.DIRECTOR OF HEALTH CARE MARKETING [address] [place] [address] Social Media Editor Family Medicine 03/13/24 Financial Specialist Relationship Specialty Start Date End Date Arsalan Ocampo MD [address] [place] [address] PCP - General Family Medicine 12/08/20 Natalya Dorsey RN [address] [place] [address] Specialty Rubber Trimmer Hematology/Oncology 05/03/21 Dereje Herring MD [address] [place] [address] Hematology/Oncology 03/13/23 PodlogarCatherine APRN.DIRECTOR OF HEALTH CARE MARKETING [address] [place] [address] Social Media Editor Family Medicine 03/13/24 Suresh Hodges MD [address] [place] [address] Radiation Oncology 06/18/24 Yasmine Marrero APRN.DIRECTOR OF HEALTH CARE MARKETING [address] [facility] [place] [address] Social Media Editor Family Medicine 06/18/24 Financial Specialist Relationship Specialty Start Date End Date Arsalan Ocampo MD [address] [place] [address] PCP - General Family Medicine 12/08/20 Natalya Dorsey RN [address] [place] [address] Specialty Rubber Trimmer Hematology/Oncology 05/03/21 Dereje Herring MD [address] [place] [address] Hematology/Oncology 03/13/23 Podlogar, DORIS Alexander.DIRECTOR OF HEALTH CARE MARKETING [address] [facility] [place] [address] Social Media Editor Family Medicine 03/13/24 Suresh Hodges MD [address] [place] [address] Radiation Oncology 06/18/24 Yasmine Marrreo APRN.DIRECTOR OF HEALTH CARE MARKETING [address] [facility] [facility] [place] [address] [facility] 06/28/24 Financial Specialist Relationship Specialty Start Date End Date Arsalan Ocampo MD [address] [facility] [address] PCP - General Family Medicine 12/08/20 Natalya Dorsey, RN [address] [place] [address] Specialty Rubber Trimmer Hematology/Oncology 05/03/21 Dereje Herring MD [address] [place] [address] Hematology/Oncology 03/13/23 PodlogCatherine verduzco APRN.DIRECTOR OF HEALTH CARE MARKETING [address] [place] [address] Social Media Editor Family Medicine 03/13/24 Suresh Hodges MD [address] [place] [address] Radiation Oncology 06/18/24 Yasmine Marrero COMMUNITY LIAISON OFFICER.DIRECTOR OF HEALTH CARE MARKETING [address] [place] [address] [facility] 06/28/24 Financial Specialist Relationship Specialty Start Date End Date Arsalan Ocampo MD [address] [facility] [place] [address] PCP - General Family Medicine 12/08/20 Natalya Dorsey, ERIN [address] [place] [address] Specialty Rubber Trimmer Hematology/Oncology 05/03/21 Dereje Herring MD [address] [place] [address] Hematology/Oncology 03/13/23 TnoeylogCatherine verduzco APRN.DIRECTOR OF HEALTH CARE MARKETING [address] [facility] [address] Social Media Editor Family Medicine 03/13/24 Suresh Hodges MD [address] [place] [address] Radiation Oncology 06/18/24 Yasmine Marrero APRN.DIRECTOR OF HEALTH CARE MARKETING [address] [facility] [place] [address] [facility] 06/28/24 Financial Specialist Relationship Specialty Start Date End Date Arsalan Ocampo MD [address] [facility] [place] [address] PCP - General Family Medicine 12/08/20 Natalya Dorsey RN [address] [place] [address] Specialty Rubber Trimmer Hematology/Oncology 05/03/21 Dereje Herring MD [address] [place] [address] Hematology/Oncology 03/13/23 PodlogarCatherine APRN.DIRECTOR OF HEALTH CARE MARKETING [address] [place] [address] [facility] 03/13/24 Suresh Hodges MD [address] [place] [address] Radiation Oncology 06/18/24 Yasmine Marrero APRN.DIRECTOR OF HEALTH CARE MARKETING [address] [facility] [place] [address] [facility] 06/28/24 Financial Specialist Relationship Specialty Start Date End Date Arsalan Ocampo MD [address] [place] [address] PCP - General Family Medicine 12/08/20 Natalya Dorsey, RN [address] [place] [address] Specialty Rubber Trimmer Hematology/Oncology 05/03/21 Dereje Herring MD [address] [place] [address] Hematology/Oncology 03/13/23 PodlogarCatherine APRN.DIRECTOR OF HEALTH CARE MARKETING [address] [place] [address] [facility] 03/13/24 Suresh Hodges MD [address] [place] [address] Radiation Oncology 06/18/24 Yasmine Marrero APRN.DIRECTOR OF HEALTH CARE MARKETING [address] [place] [address] Social Media Editor Family Medicine 06/28/24 Financial Specialist Relationship Specialty Start Date End Date Arsalan Ocampo MD [address] [facility] [place] [address] PCP - General Family Medicine 12/08/20 Natalya Doresy, ERIN [address] [place] [address] Specialty Rubber Trimmer Hematology/Oncology 05/03/21 Dereje Herring MD [address] [place] [address] Hematology/Oncology 03/13/23 Catherine Peraza APRN.DIRECTOR OF HEALTH CARE MARKETING [address] [facility] [address] Social Media Editor Family Medicine 03/13/24 Suresh Hodges MD [address] [place] [address] Radiation Oncology 06/18/24 Yasmine Marrero APRN.DIRECTOR OF HEALTH CARE MARKETING [address] [facility] [place] [address] Social Media Editor Family [facility] 06/28/24 Financial Specialist Relationship Specialty Start Date End Date Arsalan Ocampo MD [address] [facility] [place] [address] PCP - General Family Medicine 12/08/20 Natalya Dorsey, RN [address] [place] [address] Specialty Rubber Trimmer Hematology/Oncology 05/03/21 Dereje Herring MD [address] [place] [address] Hematology/Oncology 03/13/23 PodlogarCatherine APRN.DIRECTOR OF HEALTH CARE MARKETING [address] [place] [address] Social Media Editor Family Medicine 03/13/24 Suresh Hodges MD [address] [place] [address] Radiation Oncology 06/18/24 Financial Specialist Relationship Specialty Start Date End Date Arsalan Ocampo MD [address] [place] [address] PCP - General Family Medicine 12/08/20 Natalya Dorsey RN [address] [place] [address] Specialty Rubber Trimmer Hematology/Oncology 05/03/21 Dereje Herring MD [address] [place] [address] Hematology/Oncology 03/13/23 PodlogarCatherine APRN.DIRECTOR OF HEALTH CARE MARKETING [address] [place] [address] Social Media Editor Family [facility] 03/13/24 Suresh Hodges MD [address] [place] [address] Radiation Oncology 06/18/24 Inactive Administered Medications - up to 3 most recent administrations Administered Medications (un recognized section and content) Medication Order MAR Action Action Date Dose Rate Site denosumab 120 mg injection (XGEVA) 120 mg, SUBCUTANEOUS, ONCE, 1 dose, On Roseann 05/08/23 at 0930, REFRIGERATE Given 05/08/2023 9:21 AM EST 120 mg Arm, Left Inactive Administered Medications - up to 3 most recent administrations Medication Order MAR Action Action Date Dose Rate Site Darbepoetin Dagmar In Polysorbat 200 mcg injection (ARANESP) 200 mcg, SUBCUTANEOUS, ONCE, 1 dose, On Roseann 06/05/23 at 0930, Protect from light REFRIGERATE Given 06/05/2023 9:50 AM EST 200 mcg Arm, Right FOR RECORDS PERTAINING TO PATIENTS WHO ARE OR HAVE BEEN ENROLLED IN A CHEMICAL DEPENDENCY/SUBSTANCEABUSE PROGRAM, SOME INFORMATION MAY BE OMITTED. This clinical summary was aggregated from multiple sources. Caution should be exercised in using it in the provision of clinical care. This summary normalizes information from multiple sources, and as a consequence, information in this document may materially change the coding, format and clinical context of patient data. In addition, data may be omitted in some cases. CLINICAL DECISIONS SHOULD BE BASED ON THE PRIMARY CLINICAL RECORDS. [employer] provides no warranty or guarantee of the accuracy or completeness of information in this document.
[2024-09-18 13:52] LABS: Color, Urine Yellow (Yellow); Glucose, Dipstick Normal (Normal); Ketone-Dipstick 5 mg/dl (Negative); Leukocyte Esterase-Dipstick 25 /ul (Negative); Nitrite-Dipstick Negative (Negative); Occult Blood-Urine 10 /ul (Negative); Protein-Dipstick 30 mg/dl (Negative); Specific Gravity, Urine 1.015 (1.002-1.030); Urine Clarity Clear (Clear); Urine Urobilinogen 1 mg/dl (Normal)
[2024-09-18 13:54] LABS: Anisocytosis 1+; Hypochromasia 1+
[2024-09-18 13:56] LABS: Urine Bilirubin Dipstick 1 mg/dL (Negative)
[2024-09-18 13:59] LABS: Hyaline Cast 0-5 SEEN /lpf (0-5)
[2024-09-18 14:00] LABS: White Blood Cells 5-10 SEEN /hpf (0-5)
[2024-09-18 14:16] LABS: Troponin T High Sensitivity 47 ng/L (<=22)
[2024-09-18 14:33] LABS: Lactic Acid 2.3 mmol/L (0.0-2.0)
[2024-09-18] MEDS: Piperacil/Tazobactam 4.5 GM in 0.9% Normal Saline (100mL MB+) 100 ML IV (15:30)
--- NOTE | 2024-09-18 16:01 | PCM.HP.STD ---
HPI - General General Date of Admission: 09/18/24 HPI Narrative SARAH CORDERO, is a 69 M who presents to the hospital with dizziness and hypotension. He has a history of stage IV prostate cancer with mets to the bone that he is currently on immunotherapy and hormonal therapy for. Both time he found that it was already metastatic so he has not undergone a prostatectomy. He has been having headaches for the last 3 weeks but they think that is due to his recent Mohs surgery that has not healed on his scalp. That area does not appear infected. He does not have a leukocytosis and he presented with an STACI to 2.13. He is also had a lactic acidosis of 2.3 and was given several fluid boluses in the emergency room. No obvious signs of infection at the moment, UA is unremarkable as is chest x-ray. He does have an elevated alk phos which is likely due to his bone mets but does also have an elevated total bilirubin at 1.7 sick and he does have some scleral icterus. Initially when he presented to the hospital his systolic blood pressures were in the 50s with a MAP of 41, currently on my evaluation his MAP is 67 with a systolic blood pressure of 102. He started feeling unwell yesterday though given the severity of his vital signs on arrival he has likely been sick for several days that was just asymptomatic secondary to his immunocompromise state. He is chronically on steroids and is unable to compensate. [facility] Medical History (Updated 09/18/24 @ 15:[address] Augustin Carney MD) Dizziness Home Medications ?Medication ?Instructions ?Recorded ?Last Taken ?Type abiraterone 250 mg tablet 1,000 mg PO DAILY prostate cancer 12/11/23 09/17/24 History atorvastatin 20 mg tablet 20 mg PO QHS cholesterol 12/11/23 09/17/24 History prednisone 5 mg tablet 5 mg PO BID prostate 12/11/23 09/17/24 History tamsulosin 0.4 mg capsule 0.4 mg PO DAILY prostate 12/11/23 09/17/24 History cimetidine 200 mg tablet (Tagamet 200 mg PO BID 02/05/24 09/17/24 History HB) leuprolide acetate (6 month) 45 mg 45 mg subcut .COMPLEX 02/05/24 09/15/24 History (6 month) subcutaneous syringe (Sunshined) darbepoetin dagmar in polysorbat See Rx Instructions IV .COMPLEX 09/18/24 Unknown History Allergy/AdvReac Type Severity Reaction Status Date / Time No Known Allergies Allergy Verified 09/18/24 12:29 Family History (Updated 09/18/24 @ 16:[address] Ivan Nugent MD) Other Cancer Surgical History (Updated 09/18/24 @ 16:[address] Ivan Nugent MD) Status post Mohs surgery Social History Smoking Status: Never smoker ROS Constitutional Constitutional: Reports fatigue and weakness; Denies chills, fever(s) or malaise Eyes Eyes: Denies blurry vision ENT HEENT: Denies headache(s) or nasal discharge Cardiovascular Cardiovascular: Denies chest pain, dyspnea on exertion or syncope Respiratory/Chest Respiratory/Chest: Denies cough, shortness of breath at rest or shortness of breath with exertion Gastrointestinal Gastrointestinal: Reports nausea; Denies constipation, diarrhea or vomiting Genitourinary Genitourinary: Denies dysuria Neurologic Neurologic: Reports headache(s); Denies focal weakness, numbness or tremor(s) Psychiatric Psychiatric: Denies anxiety or depression Vital Signs Vital Signs Vital Signs: 09/18/24 12:24 09/18/24 12:26 09/18/24 12:42 Temperature 97.8 F Temperature Source Oral Pulse Rate 93 88 Respiratory Rate 18 18 Blood Pressure 56/34 L 56/34 L 80/72 L Blood Pressure Mean 41 41 74 Pulse Ox 97 95 Oxygen Delivery Method Room Air Room Air 09/18/24 13:18 09/18/24 13:51 09/18/24 14:30 Temperature 98.4 F Temperature Source Oral Pulse Rate 87 85 Respiratory Rate 19 H 20 H Blood Pressure 70/51 L 85/53 L Blood Pressure Mean 57 63 Pulse Ox 93 93 Oxygen Delivery Method Room Air Room Air Weight Weight: 148 lb 12.992 oz Body Mass Index (BMI) 22.6 Physical Exam Narrative General: Alert little drowsy, Oriented x3, Cooperative, No apparent distress HEENT: Atraumatic, PERRLA, EOMI, Normocephalic, Mohs surgery on his right scalp dressing intact with fluid collection underneath does not appear infected, no surrounding erythema Oral: Moist Mucosa Neck: Supple, No JVD Lungs: Diminished, Normal air movement, No rhonchi, No wheeze, No rales Cardiovascular: Regular rate, Regular Rhythm, Normal S1, Normal S2, No murmurs Abdomen: Soft, Non Tender, Non-Distended, No Hepato-splenomegaly Extremities: No edema, Capillary Refill Less than 3 Seconds Skin: No rashes, No breakdown Musculoskeletal: No Tenderness to Palpation of Joints or Extremities Neurological: No focal neurological deficits, moves all extremities Psych/Mental Status: Normal Affect, Appropriate Results Lab / Micro Data 09/18/24 12:40 09/18/24 12:40 Labs: Laboratory Results - last 24 hr 09/18/24 12:40: WBC 4.4, RBC 3.63 L, Hgb 8.6 L, Hct 29.3 L, MCV 80.7, MCH 23.7 L, MCHC 29.4 L, RDW Std Deviation 62.0 H, RDW Coeff of Lydia 21.4 H, Plt Count 119 L, MPV 8.8, Immature Gran % (Auto) 0.200, Neut % (Auto) 87.5 H, Lymph % (Auto) 10.7 L, Graves % (Auto) 0.9, Eos % (Auto) 0.5, Baso % (Auto) 0.2, Absolute Neuts (auto) 3.8, Absolute Lymphs (auto) 0.47 L, Nucleated RBC % 0, Hypochromasia 1+, Anisocytosis 1+, PT 17.7 H, INR 1.4, APTT 36.6 H, Sodium 137, Potassium 4.1, Chloride 102, Carbon Dioxide 20.3 L, Anion Gap 14, BUN 43 H, Creatinine 2.13 H, Estim Creat Clear Calc 30.37 L, Est GFR (MDRD) Non-Af 32 L, BUN/Creatinine Ratio 20.1 H, Glucose 75, Calcium 8.6, Total Bilirubin 1.76 H, AST 28, ALT 20, Alkaline Phosphatase 152 H, Troponin T High Sens 47 H, Total Protein 6.1, Albumin 3.3 L, Globulin 2.8, Albumin/Globulin Ratio 1.2 09/18/24 13:30: Urine Color Yellow, Urine Clarity Clear, Urine pH 6.0, Ur Specific Horton 1.015, Urine Protein 30 H, Urine Glucose (UA) Normal, Urine Ketones 5 H, Urine Occult Blood 10 H, Urine Nitrite Negative, Urine Bilirubin 1 H, Urine Urobilinogen 1 H, Ur Leukocyte Esterase 25 H, Urine RBC 0 SEEN, Urine WBC 5-10 SEEN, Ur Squamous Epith Cells 0 SEEN, Urine Bacteria 0 SEEN, Hyaline Casts 0-5 SEEN, Urine Mucus 0 SEEN 09/18/24 13:45: Lactic Acid 2.3 H* Micro: Microbiology 09/18/24 13:45 Mucosa - Nose SARS-CoV-2, Influenza & RSV (PCR) - Final Rhythm Strip Rhythm Strip: Sinus Rhythm Rate: 90 Ectopy: None Imaging Radiology Impression Chest X-Ray 09/18/24 13:20 IMPRESSION: No acute process detected. Reading [facility] Assessment & Plan Assessment/Plan (1) Sepsis: (2) Acute kidney injury: PLAN: Plan 1. Severe sepsis of unclear source/STACI ? She received 3 L of fluid in the ER with a beautiful response to his blood pressure ? Continue with IV fluids ? Will administer broad-spectrum antibiotics with Vanco and Zosyn ? Will plan for a CT of the chest abdomen and pelvis with contrast tomorrow if his renal function is improved ? Will add oral prednisone as he takes 5 mg of prednisone twice daily, as a stress dose ? Will have wound care evaluate his Mohs surgical site while here ? Part of his STACI is due to the fact that he has been taking Advil frequently for his headache 2. Metastatic prostate cancer ? He has been having headaches and he did tell his oncologist about it who did not feel that it warranted imaging at this time as they felt that it was related to his Mohs surgery, however if this continues would recommend MRI ? Will stress dose of steroids with prednisone ? Will hold his cancer medications 3. Hyperlipidemia ? Can continue his Lipitor ? 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 Continue with Flomax DVT: Heparin Sepsis Attestation Sepsis Attestation: Agree w/Sepsis Date exam was performed: 09/18/24 Time exam was performed: 14:00 Possible Source of Sepsis: Other Sepsis Organ Dysfunction Criteria Present: SBP < 90 mmHg or MAP < 65 mmHg, Creatinine > 2.0 mg/dL and Lactic Acid > 2 mmol/L Fluid Resuscitation Fluid resuscitation indicated?: Yes Fluid Resuscitation ordered: 30 ml/kg fluid bolus ordered Sepsis Note Date exam was performed: 09/18/24 Time exam was performed: 16:00 Sepsis Attestation: Sepsis re-evaluation was performed Response to fluids: Fluid responsive hypotension Charges/Coding Visit Charges Inpatient E&M: 29946 Init Hosp L3
--- OUTSIDE RECORDS SUMMARY | 2024-09-18 16:07 | XMS RPT_ITS | CCD ---
Author Organization [facility] ion [facility] Care Team Providers Care Crew Team Member Name Role Phone DORCAS WATERS Unavailable Unavailable [...] Unavailab ARSALAN Khan MD Primary Care Physician [phone] ARSALAN OCAMPO MD Primary Care Unavailshireen CRAWFORD [...] le HEATHERDORCAS PEARSON Referring Unavailab le Podlogar SENIOR PRODUCER.JOI, Catherine Unavailable [phone] Derrek Hopper Attending Unavailable Bursley, López Primary Care Unavailable Bursley, López Referring Unavailable Bursley, López Primary Care Unavailable Rohit Crawford Consulting Unavailable Yvette, Rohit Attending Unavailable Bursley, López Primary Care Unavailable Yvette, Rohit Consulting Unavailable Yvette, Rohit Attending Unavailable Rohit Crawford Admitting Unavailable Bursley, López Primary Care Unavailable Yvette, Rohit Attending Unavailable Yvette, Rohit Admitting Unavailable Bursley, López Primary Care Unavailable Yvette, Rohit Attending Unavailable Rohit Crawford Referring Unavailable Bursley, López Primary Care Unavailable Rubén Liu Attending Unavailable EDNY CURRAN Attending Unavailable PODLOGAR, CATHERINE Referring Unavailable [...] Unavailab dutch Hodges MD, Suresh Unavailable Knoble SENIOR PRODUCER.PROGRAMMER BUSINESS, Yasmine Unavailable Knoble SENIOR PRODUCER.PROGRAMMER BUSINESS, Yasmine Unavailable SANJEEV ARANDA Referring Unavailable ARSALAN [...] [OTHER] Propensity to adverse reactions (disorder) 11-30-19 [facility] Repository (20 sources) envirornmental [Other] Propensity to adverse reactions 11-30-19 Intolerance [facility] Work Phone: (20 sources) Ragweed pollen; Translations: [RAGWEED POLLEN] Propensity to adverse reactions to drug 06-11-19 Other: See Comments [facility] Work Phone: Medications Current Medications Medication Drug [...] Start: 01-16-2023 take 4 tablets by mo [facility] once daily 1 hour(s) after mealtime abiraterone [...] Comment on above: TAKE 1 CAPSULE BY [facility] EVERY DAY Take 1 capsule by [facility] once daily. Take 1 capsule by [facility] daily at bedtime for 90 doses. Completed/Discontinued [...] Anion gap [Moles/Vol] 11 mmol/L Normal 8-15 [facility] Comment on above: Order Comment: Speci men Type: BLOOD SPECIMENOrdering Facility: [facility] Address: [address] [place] [address] Performed By: #### 2 4321-2 ####[facility] [id number] [place] [address] [place] Calcium [Mass/Vol] 8.8 mg/dL Normal 8.5-10.2 [facility] Comment on above: Order Comment: Speci men Type: BLOOD SPECIMENOrdering Facility: [facility] Address: [address] [place] [address] Performed By: #### 2 4321-2 ####[facility] [id number] [place] [address] [place] Chloride [Moles/Vol] 105 mmol/L Normal 98-107 [facility] Comment on above: Order Comment: Speci men Type: BLOOD SPECIMENOrdering Facility: [facility] Address: [address] [place] [address] Performed By: #### 2 4321-2 ####[facility] [id number] [place] [address] [place] CO2 [Moles/Vol] 22 mmol/L Normal 22-30 [facility] Comment on above: Order Comment: Speci men Type: BLOOD SPECIMENOrdering Facility: [facility] Address: [address] [place] [address] Performed By: #### 2 4321-2 ####[facility] [id number] [place] [address] [place] Creatinine [Mass/Vol] 0.99 mg/dL Normal 0.73-1.22 [facility] Comment on above: Order Comment: Speci men Type: BLOOD SPECIMENOrdering Facility: [facility] Address: [address] [place] [address] Performed By: #### 2 4321-2 ####[facility] [id number] [place] [address] [place] Creatinine and Glomerular filtration rate.predicted panel (S/P/Bld) 81 mL/min/1.73m??? Normal >=60 [facility] Comment on above: Order Comment: Bassam hong Type: BLOOD SPECIMENOrdering Facility: [facility] Address: [address] [place] [address] Result Comment: Beth mated Glomerular Filtration Rate [...] actual GFR. Performed By: #### 2 4321-2 ####[facility] [id number] [place] [address] [place] Glucose [Mass/Vol] 93 mg/dL Normal 74-99 [facility] Comment on above: Order Comment: Bassam hong Type: BLOOD SPECIMENOrdering Facility: [facility] Address: [address] [place] [address] Result Comment: The [place] Diabetes Association (ADA) provides guidance for cutoff [...] Standards of Medical Care in Diabetes 2016, [place] [employer]. Diabetes Care. 2016.39(Suppl 1). Performed By: #### 2 4321-2 ####[facility] MILLCAESARWNCLIA [id number] [place] [address] [place] Potassium [Moles/Vol] 3.9 mmol/L Normal 3.7-5.1 [facility] Comment on above: Order Comment: Speci men Type: BLOOD SPECIMENOrdering Facility: [facility] Address: [address] [place] [address] Performed By: #### 2 4321-2 ####[facility] HOSPITALANGELICALIA [id number] [place] [address] [place] Sodium [Moles/Vol] 138 mmol/L Normal 136-144 [facility] Comment on above: Order Comment: Speci men Type: BLOOD SPECIMENOrdering Facility: [facility] Address: [address] [place] [address] Performed By: #### 2 4321-2 ####[facility] CENTERShireen [id number] [place] [address] [place] Urea nitrogen [Mass/Vol] 23 mg/dL Normal 9-24 [facility] Comment on above: Order Comment: Speci men Type: BLOOD SPECIMENOrdering Facility: [facility] Address: [address] [place] [address] Performed By: #### 2 4321-2 ####[facility] HOSPITALCINDY [id number] [place] [address] [place] CBC W Auto Differential pane l (Bld)on 09-08-2024 Basophils (Bld) [#/Vol] 10*3/uL Normal <0.11 [facility] Comment on above: Order Comment: Speci men Type: BLOOD SPECIMENOrdering Facility: [facility] Address: [address] [place] [address] Performed By: #### 5 7021-8 ####[facility] HOSPITALANGELICALIShireen [id number] [place] [address] [place] Basophils/100 WBC (Bld) 0.2 % Normal [facility] Comment on above: Order Comment: Speci men Type: BLOOD SPECIMENOrdering Facility: [facility] Address: [address] [place] [address] Performed By: #### 5 7021-8 ####[facility] [id number] [place] [address] [place] Differential cell count method Nom (Bld) Auto Normal [facility] Comment on above: Order Comment: Speci men Type: BLOOD SPECIMENOrdering Facility: [facility] Address: [address] [place] [address] Performed By: #### 5 7021-8 ####[facility] [id number] [place] [address] [place] Eosinophils (Bld) [#/Vol] 0.24 10*3/uL Normal <0.46 [facility] Comment on above: Order Comment: Speci men Type: BLOOD SPECIMENOrdering Facility: [facility] Address: [address] [place] [address] Performed By: #### 5 7021-8 ####[facility] CENTERA [id number] [place] [address] [place] Eosinophils/100 WBC (Bld) 3.7 % Normal [facility] Comment on above: Order Comment: Speci men Type: BLOOD SPECIMENOrdering Facility: [facility] Address: [address] [place] [address] Performed By: #### 5 7021-8 ####[facility] HOSPITALNCLIA [id number] [place] [address] [place] Erythrocyte distribution width (RBC) [Ratio] 21.0 % High 11.5-15.0 [facility] Comment on above: Order Comment: Speci men Type: BLOOD SPECIMENOrdering Facility: [facility] Address: [address] [place] [address] Performed By: #### 5 7021-8 ####[facility] PITOLIA [id number] [place] [address] [place] Hematocrit (Bld) [Volume fraction] 27.9 % Low 39.0-51.0 [facility] Comment on above: Order Comment: Speci men Type: BLOOD SPECIMENOrdering Facility: [facility] Address: [address] [place] [address] Performed By: #### 5 7021-8 ####[facility] HOSPITALNCLIA [id number] [place] [address] [place] Hemoglobin (Bld) [Mass/Vol] 8.5 g/dL Low 13.0-17.0 [facility] Comment on above: Order Comment: Speci men Type: BLOOD SPECIMENOrdering Facility: [facility] Address: [address] [place] [address] Performed By: #### 5 7021-8 ####[facility] HOSPITALNCLIA [id number] [place] [address] [place] Immature granulocytes (Bld) [#/Vol] 0.07 10*3/uL Normal <0.10 [facility] Comment on above: Order Comment: Speci men Type: BLOOD SPECIMENOrdering Facility: [facility] Address: [address] [place] [address] Performed By: #### 5 7021-8 ####[facility] BIENVENIDOPLYMOUTH MEETINGNCLIA [id number] [place] [address] [place] Immature granulocytes/100 WBC (Bld) 1.1 % Normal [facility] Comment on above: Order Comment: Speci men Type: BLOOD SPECIMENOrdering Facility: [facility] Address: [address] [place] [address] Performed By: #### 5 7021-8 ####[facility] HOSPITALNCLIA [id number] [place] [address] [place] Lymphocytes (Bld) [#/Vol] 2.43 10*3/uL Normal 1.00-4.00 [facility] Comment on above: Order Comment: Speci men Type: BLOOD SPECIMENOrdering Facility: [facility] Address: [address] [place] [address] Performed By: #### 5 7021-8 ####[facility] [id number] [place] [address] [place] Lymphocytes/100 WBC (Bld) 37.3 % Normal [facility] Comment on above: Order Comment: Speci men Type: BLOOD SPECIMENOrdering Facility: [facility] Address: [address] [place] [address] Performed By: #### 5 7021-8 ####[facility] [id number] [place] [address] [place] MCH (RBC) [Entitic mass] 24.6 pg Low 26.0-34.0 [facility] Comment on above: Order Comment: Speci men Type: BLOOD SPECIMENOrdering Facility: [facility] Address: [address] [place] [address] Performed By: #### 5 7021-8 ####[facility] [id number] [place] [address] [place] MCHC (RBC) [Mass/Vol] 30.5 g/dL Normal 30.5-36.0 [facility] Comment on above: Order Comment: Speci men Type: BLOOD SPECIMENOrdering Facility: [facility] Address: [address] [place] [address] Performed By: #### 5 7021-8 ####HIAL[facility] HOSPITALNCLI [id number] [place] [address] [place] MCV (RBC) [Entitic vol] 80.6 fL Normal 80.0-100.0 [facility] Comment on above: Order Comment: Speci men Type: BLOOD SPECIMENOrdering Facility: [facility] Address: [address] [place] [address] Performed By: #### 5 7021-8 ####[facility] [id number] [place] [address] [place] Monocytes (Bld) [#/Vol] 0.46 10*3/uL Normal <0.87 [facility] Comment on above: Order Comment: Speci men Type: BLOOD SPECIMENOrdering Facility: [facility] Address: [address] [place] [address] Performed By: #### 5 7021-8 ####[facility] [id number] [place] [address] [place] Monocytes/100 WBC (Bld) 7.1 % Normal [facility] Comment on above: Order Comment: Speci men Type: BLOOD SPECIMENOrdering Facility: [facility] Address: [address] [place] [address] Performed By: #### 5 7021-8 ####[facility] [id number] [place] [address] [place] Neutrophils (Bld) [#/Vol] 3.31 10*3/uL Normal 1.45-7.50 [facility] Comment on above: Order Comment: Speci men Type: BLOOD SPECIMENOrdering Facility: [facility] Address: [address] [place] [address] Performed By: #### 5 7021-8 ####[facility] [id number] [place] [address] [place] Neutrophils/100 WBC (Bld) 50.6 % Normal [facility] Comment on above: Order Comment: Speci men Type: BLOOD SPECIMENOrdering Facility: [facility] Address: [address] [place] [address] Performed By: #### 5 7021-8 ####[facility] BIENVENIDOMariannaNCLIA [id number] [place] [address] [place] Nucleated RBC (Bld) [#/Vol] 10*3/uL Normal <0.01 [facility] Comment on above: Order Comment: Speci men Type: BLOOD SPECIMENOrdering Facility: [facility] Address: [address] [place] [address] Performed By: #### 5 7021-8 ####[facility] HOSPITALNCLIA [id number] [place] [address] [place] Nucleated RBC/100 WBC (Bld) [Ratio] 0.0 /100 WBC Normal [facility] Comment on above: Order Comment: Speci men Type: BLOOD SPECIMENOrdering Facility: [facility] Address: [address] [place] [address] Performed By: #### 5 7021-8 ####[facility] HOSPITALNCLIA [id number] [place] [address] [place] Platelet mean volume (Bld) [Entitic vol] 8.4 fL Low 9.0-12.7 [facility] Comment on above: Order Comment: Speci men Type: BLOOD SPECIMENOrdering Facility: [facility] Address: [address] [place] [address] Performed By: #### 5 7021-8 ####[facility] HOSPITALNCLIA [id number] [place] [address] [place] Platelets (Bld) [#/Vol] 196 10*3/uL Normal 150-400 [facility] Comment on above: Order Comment: Speci men Type: BLOOD SPECIMENOrdering Facility: [facility] Address: [address] [place] [address] Performed By: #### 5 7021-8 ####[facility]NCS[facility] [id number] [place] [address] [place] RBC (Bld) [#/Vol] 3.46 10*6/uL Low 4.20-6.00 [facility] Comment on above: Order Comment: Speci men Type: BLOOD SPECIMENOrdering Facility: [facility] Address: [address] [place] [address] Performed By: #### 5 7021-8 ####[facility] [id number] [place] [address] [place] WBC (Bld) [#/Vol] 6.52 10*3/uL Normal 3.70-11.00 [facility] Comment on above: Order Comment: Speci men Type: BLOOD SPECIMENOrdering Facility: [facility] Address: [address] [place] [address] Performed By: #### 5 7021-8 ####[facility] [id number] [place] [address] [place] CNOVSPon 09-08-2024 CNOVSP Normal [facility] CNNURSEon 08-27-2024 CNNURSE Normal [facility] FERRITINon 08-12-2024 Ferritin [Mass/Vol] 835 ng/mL High 30.3 - 5 65.7 ng/mL [facility] Ferritin [Mass/Vol]on 2024 Interpretation and review of laboratory results Abnormal [facility] 25(OH)D3 SerPl-mCncon 2024 25-hydroxyvitamin D3 [Mass/Vol] 19.1 ng/mL Low 31.0-80.0 [facility] Comment on above: Order Comment: Speci men Type: BLOOD SPECIMENOrdering Facility: [facility] Address: [address] [place], [place] [address] Result Comment: Clas sification of 25 [place] Vitamin D status:Deficiency/Insufficiency: < or = 30 ng/ml.Sufficiency/Optimal Levels: 31-80 ng/mLToxicity: > 100 ng/mL.Test performed by chemiluminescent immunoassay. Performed By: #### 1 989-3 ####[facility] LABCLIA [id number] [place] [address] [place] 25-hydroxyvitamin D3 [Mass/V ol]on 08-11-2024 Interpretation and review of laboratory results Abnormal [facility] The reference range interval was based on an analysis of samples from healthy adults and may not pertain to children from 0-18 years old. [facility] Basic metabolic 2000 panelon 08-11-2024 Anion gap [Moles/Vol] 8 mmol/L Normal 8-15 [facility] Comment on above: Order Comment: Speci men Type: BLOOD SPECIMENOrdering Facility: [facility] Address: [address] [place] [address] Performed By: #### 2 4321-2 ####[facility]ITALNCS[facility] [id number] [place] [address] [place] Calcium [Mass/Vol] 9.4 mg/dL Normal 8.5-10.2 [facility] Comment on above: Order Comment: Speci men Type: BLOOD SPECIMENOrdering Facility: [facility] Address: [address] [place], [place] [address] Performed By: #### 2 4321-2 ####[facility] [id number] [place] [address] [place] Chloride [Moles/Vol] 101 mmol/L Normal 98-107 [facility] Comment on above: Order Comment: Speci men Type: BLOOD SPECIMENOrdering Facility: [facility] Address: [address] [place] [address] Performed By: #### 2 4321-2 ####[facility] HOSPITALNCLIA [id number] [place] [address] [place] CO2 [Moles/Vol] 28 mmol/L Normal 22-30 [facility] Comment on above: Order Comment: Speci men Type: BLOOD SPECIMENOrdering Facility: [facility] Address: [address] [place], [place] [address] Performed By: #### 2 4321-2 ####[facility] [id number] [address] [place] Creatinine [Mass/Vol] 1.05 mg/dL Normal 0.73-1.22 [facility] Comment on above: Order Comment: Speci men Type: BLOOD SPECIMENOrdering Facility: [facility] Address: [address] [place] [address] Performed By: #### 2 4321-2 ####[facility] HOSPITALNCLI [id number] [place] [address] [place] Creatinine and Glomerular filtration rate.predicted panel (S/P/Bld) 76 mL/min/1.73m??? Normal >=60 [facility] Comment on above: Order Comment: Speci men Type: BLOOD SPECIMENOrdering Facility: [facility] Address: [address] [place] [address] Result Comment: Beth mated Glomerular Filtration Rate [...] actual GFR. Performed By: #### 2 4321-2 ####[facility] HOSPITALNCLIA [id number] [place] [address] [place] Glucose [Mass/Vol] 97 mg/dL Normal 74-99 [facility] Comment on above: Order Comment: Speci men Type: BLOOD SPECIMENOrdering Facility: [facility] Address: [address] [place] [address] Result Comment: The [place] [employer] Association (ADA) provides guidance for cutoff [...] Standards of Medical Care in Diabetes 2016, [place] [employer]. Diabetes Care. 2016.39(Suppl 1). Performed By: #### 2 4321-2 ####[facility] MILLTOWNCLIA [id number] [place] [address] [place] Potassium [Moles/Vol] 4.1 mmol/L Normal 3.7-5.1 [facility] Comment on above: Order Comment: Bassam hong Type: BLOOD SPECIMENOrdering Facility: [facility] Address: [address] [place] [address] Performed By: #### 2 4321-2 ####[facility] HOSPITALWNYLIA [id number] [place] [address] [place] Sodium [Moles/Vol] 137 mmol/L Normal 136-144 [facility] Comment on above: Order Comment: Bassam hong Type: BLOOD SPECIMENOrdering Facility: [facility] Address: [address] [place] [address] Performed By: #### 2 4321-2 ####[facility] MILLWNCLIA [id number] [place] [address] [place] Urea nitrogen [Mass/Vol] 21 mg/dL Normal 9-24 [facility] Comment on above: Order Comment: Bassam hong Type: BLOOD SPECIMENOrdering Facility: [facility] Address: [address] [place] [address] Performed By: #### 2 4321-2 ####[facility] HOSPITALWNCLIA [id number] [place] [address] [place] CBC W Auto Differential pane l (Bld)on 08-11-2024 Basophils (Bld) [#/Vol] 10*3/uL Normal <0.11 [facility] Comment on above: Order Comment: Speci men Type: BLOOD SPECIMENOrdering Facility: [facility] Address: [address] [place] [address] Performed By: #### 5 7021-8 ####[facility] MILLWNYLIA [id number] [place] [address] [place] Basophils/100 WBC (Bld) 0.2 % Normal [facility] Comment on above: Order Comment: Speci men Type: BLOOD SPECIMENOrdering Facility: [facility] Address: [address] [place] [address] Performed By: #### 5 7021-8 ####[facility] [id number] [place] [address] [place] [facility] Differential cell count method Nom (Bld) Auto Normal [facility] Comment on above: Order Comment: Speci men Type: BLOOD SPECIMENOrdering Facility: [facility] Address: [address] [place] [address] Performed By: #### 5 7021-8 ####[facility]ENTERA [id number] [place] [address] [place] Eosinophils (Bld) [#/Vol] 0.23 10*3/uL Normal <0.46 [facility] Comment on above: Order Comment: Speci men Type: BLOOD SPECIMENOrdering Facility: [facility] Address: [address] [place] [address] Performed By: #### 5 7021-8 ####[facility]-FAIRHILLLIA [id number] [place] [address] [place] Eosinophils/100 WBC (Bld) 4.7 % Normal [facility] Comment on above: Order Comment: Speci men Type: BLOOD SPECIMENOrdering Facility: [facility] Address: [address] [place] [address] Performed By: #### 5 7021-8 ####[facility] BIENVENIDOPLYMOUTH MEETINGNCMJ [id number] [place] [address] [place] Erythrocyte distribution width (RBC) [Ratio] 20.4 % High 11.5-15.0 [facility] Comment on above: Order Comment: Speci men Type: BLOOD SPECIMENOrdering Facility: [facility] Address: [address] [place] [address] Performed By: #### 5 7021-8 ####[facility]ITALNCS[facility] [id number] [place] [address] [place] Hematocrit (Bld) [Volume fraction] 30.9 % Low 39.0-51.0 [facility] Comment on above: Order Comment: Speci men Type: BLOOD SPECIMENOrdering Facility: [facility] Address: [address] [place] [address] Performed By: #### 5 7021-8 ####[facility] HOSPITALNCLIA [id number] [place] [address] [place] Hemoglobin (Bld) [Mass/Vol] 9.5 g/dL Low 13.0-17.0 [facility] Comment on above: Order Comment: Speci men Type: BLOOD SPECIMENOrdering Facility: [facility] Address: [address] [place] [address] Performed By: #### 5 7021-8 ####[facility] HOSPITALNCLIA [id number] [place] [address] [place] Immature granulocytes (Bld) [#/Vol] 10*3/uL Normal <0.10 [facility] Comment on above: Order Comment: Speci men Type: BLOOD SPECIMENOrdering Facility: [facility] Address: [address] [place] [address] Performed By: #### 5 7021-8 ####[facility]HILLLIA [id number] [place] [address] [place] Immature granulocytes/100 WBC (Bld) 0.2 % Normal [facility] Comment on above: Order Comment: Speci men Type: BLOOD SPECIMENOrdering Facility: [facility] Address: [address] [place] [address] Performed By: #### 5 7021-8 ####[facility] [id number] [place] [address] [place] Lymphocytes (Bld) [#/Vol] 2.26 10*3/uL Normal 1.00-4.00 [facility] Comment on above: Order Comment: Speci men Type: BLOOD SPECIMENOrdering Facility: [facility] Address: [address] [place] [address] Performed By: #### 5 7021-8 ####[facility] [id number] [place] [address] [place] Lymphocytes/100 WBC (Bld) 46.3 % Normal [facility] Comment on above: Order Comment: Speci men Type: BLOOD SPECIMENOrdering Facility: [facility] Address: [address] [place] [address] Performed By: #### 5 7021-8 ####[facility] [id number] [place] [address] [place] MCH (RBC) [Entitic mass] 24.2 pg Low 26.0-34.0 [facility] Comment on above: Order Comment: Speci men Type: BLOOD SPECIMENOrdering Facility: [facility] Address: [address] [place] [address] Performed By: #### 5 7021-8 ####[facility]ITALNCLI [id number] [place] [address] [place] MCHC (RBC) [Mass/Vol] 30.7 g/dL Normal 30.5-36.0 [facility] Comment on above: Order Comment: Speci men Type: BLOOD SPECIMENOrdering Facility: [facility] Address: [address] [place] [address] Performed By: #### 5 7021-8 ####[facility] [id number] [place] [address] [place] MCV (RBC) [Entitic vol] 78.8 fL Low 80.0-100.0 [facility] Comment on above: Order Comment: Speci men Type: BLOOD SPECIMENOrdering Facility: [facility] Address: [address] [place] [address] Performed By: #### 5 7021-8 ####[facility]NCS[facility] [id number] [place] [address] [place] Monocytes (Bld) [#/Vol] 0.36 10*3/uL Normal <0.87 [facility] Comment on above: Order Comment: Speci men Type: BLOOD SPECIMENOrdering Facility: [facility] Address: [address] [place] [address] Performed By: #### 5 7021-8 ####[facility] [id number] [place] [address] [place] Monocytes/100 WBC (Bld) 7.4 % Normal [facility] Comment on above: Order Comment: Speci men Type: BLOOD SPECIMENOrdering Facility: [facility] Address: [address] [place] [address] Performed By: #### 5 7021-8 ####[facility] [id number] [place] [address] [place] Neutrophils (Bld) [#/Vol] 2.01 10*3/uL Normal 1.45-7.50 [facility] Comment on above: Order Comment: Speci men Type: BLOOD SPECIMENOrdering Facility: [facility] Address: [address] [place] [address] Performed By: #### 5 7021-8 ####[facility] BIENVENIDOPLYMOUTH MEETINGHEAVENA [id number] [place] [address] [place] Neutrophils/100 WBC (Bld) 41.2 % Normal [facility] Comment on above: Order Comment: Speci men Type: BLOOD SPECIMENOrdering Facility: [facility] Address: [address] [place] [address] Performed By: #### 5 7021-8 ####[facility] [id number] [place] [address] [place] Nucleated RBC (Bld) [#/Vol] 10*3/uL Normal <0.01 [facility] Comment on above: Order Comment: Speci men Type: BLOOD SPECIMENOrdering Facility: [facility] Address: [address] [place] [address] Performed By: #### 5 7021-8 ####[facility] [id number] [place] [address] [place] Nucleated RBC/100 WBC (Bld) [Ratio] 0.0 /100 WBC Normal [facility] Comment on above: Order Comment: Speci men Type: BLOOD SPECIMENOrdering Facility: [facility] Address: [address] [place] [address] Performed By: #### 5 7021-8 ####[facility]ILLLIA [id number] [place] [address] [place] Platelet mean volume (Bld) [Entitic vol] 8.6 fL Low 9.0-12.7 [facility] Comment on above: Order Comment: Speci men Type: BLOOD SPECIMENOrdering Facility: [facility] Address: [address] [place] [address] Performed By: #### 5 7021-8 ####[facility] HOSPITALWNCLIA [id number] [place] [address] [place] Platelets (Bld) [#/Vol] 162 10*3/uL Normal 150-400 [facility] Comment on above: Order Comment: Speci men Type: BLOOD SPECIMENOrdering Facility: [facility] Address: [address] [place] [address] Performed By: #### 5 7021-8 ####[facility] HOSPITALANGELICALIA [id number] [place] [address] [place] RBC (Bld) [#/Vol] 3.92 10*6/uL Low 4.20-6.00 [facility] Comment on above: Order Comment: Speci men Type: BLOOD SPECIMENOrdering Facility: [facility] Address: [address] [place] [address] Performed By: #### 5 7021-8 ####[facility]A [id number] [place] [address] [place] WBC (Bld) [#/Vol] 4.88 10*3/uL Normal 3.70-11.00 [facility] Comment on above: Order Comment: Speci men Type: BLOOD SPECIMENOrdering Facility: [facility] Address: [address] [place] [address] Performed By: #### 5 7021-8 ####[facility]OSPITALNCLIA [id number] [place] [address] [place] CNOVSPon 08-11-2024 CNOVSP Normal [facility] Ferritin SerPl-mCncon 2024 Ferritin [Mass/Vol] 835.0 ng/mL High 30.3-565.7 [facility] Comment on above: Order Comment: Speci men Type: BLOOD SPECIMENOrdering Facility: [facility] Address: [address] [place] [address] Performed By: #### 2 276-4, 31693-7 ####[facility] LABCLIA [id number] [place] [id number] [place] Iron and Iron binding capaci ty panelon 08-11-2024 Interpretation and review of laboratory results Abnormal [facility] Iron [Mass/Vol] 190 ug/dL High 41 - 186 ug/dL [facility] Iron binding capacity [Mass/Vol] 259 ug/dL 232 - 386 ug/dL [facility] Iron/TIBC [Molar ratio] 73.4 % High 15.0 - 57.0 % [facility] Iron [Mass/Vol] 190 ug/dL High 41-186 [facility] Comment on above: Order Comment: Speci men Type: BLOOD SPECIMENOrdering Facility: [facility] Address: [address] [place] [address] Performed By: #### 2 276-4, 59642-6 ####[facility] LABCLIA [id number] [place] [address] [place] Iron binding capacity [Mass/Vol] 259 ug/dL Normal 232-386 [facility] Comment on above: Order Comment: Speci men Type: BLOOD SPECIMENOrdering Facility: [facility] Address: [address] [place] [address] Performed By: #### 2 276-4, 84573-7 ####[facility] LABCLIA [id number] [place] [address] [place] Iron/TIBC [Molar ratio] 73.4 % High 15.0-57.0 [facility] Comment on above: Order Comment: Speci men Type: BLOOD SPECIMENOrdering Facility: [facility] Address: [address] [place] [address] Performed By: #### 2 276-4, 78967-2 ####[facility] LABCLIA [id number] [place] [id number] [place] PSA SerPl-ncon 08-11-2024 Prostate specific Ag [Mass/Vol] ng/mL Normal <2.60 [facility] Comment on above: Order Comment: Speci men Type: BLOOD SPECIMENOrdering Facility: [facility] Address: [address] [place] [address] Result Comment: Erika l PSA test methodology used is the Electrochemiluminescence Immunoassay by [employer]. Total PSA values by differing methodologies cannot be interchanged. Performed By: #### 2 857-1 ####[facility] LABCLIA [id number] [place] [address] [place] VITAMIN D 25 HYDROXYon 08-11 25-hydroxyvitamin D3 [Mass/Vol] 19.1 ng/mL Low 31.0 - 80.0 ng/mL [facility] Comment on above: Classification of 25 [place] Vitamin D status: Deficiency/Insufficiency: < or = 30 ng/ml. Sufficiency/Optimal Levels: 31-80 ng/mL Toxicity: > 100 ng/mL. Test performed by chemiluminescent immunoassay. ECG COMPLETEon 08-10-2024 Atrial Rate 95 BPM [facility] Calculated P [place] 61 degrees [facility] Calculated R [place] -32 degrees [facility] Calculated T [place] 62 degrees [facility] P-R Interval 136 ms [facility] QRS Duration 76 ms [facility] QT Interval 360 ms [facility] QTC Calculation (Bazett) 452 ms [facility] Ventricular Rate 95 BPM [facility] NORMAL SINUS RHYTHM ANTERIOR T WAVE ABNORMALITY ABNORMAL ECG Confirmed by MD HASKINS QARAB ([id number]) on 08/10/2024 11:55:46 AM HEART [facility] [place] NAME : ROSA CASTILLO PID : [id number] : 1955 Gender : Male Race : ORD : Procedure Date : Aug 09 2024 15:29:24 Edit Date : Aug 10 2024 11:55:48 Diagnosis: NORMAL SINUS RHYTHM ANTERIOR T WAVE ABNORMALITY ABNORMAL ECG Confirmed by MD HASKINS QARAB ([id number]) on 08/10/2024 11:55:46 AM Test Reason : Location : 211 : [facility] Overread By : MD HASKINS QARAB Edited By : MD HASKINS QARAB Referred By : DORCAS CHAMPAGNE Acquired by : TANJA NINO, HEART AND VASCULAR [facility] CNOVon 08-09-2024 CNOV Normal [facility] AST96rt 08-09-2024 ECG01 Normal [facility] Basic metabolic 2000 panelon 07-14-2024 Anion gap [Moles/Vol] 9 mmol/L Normal 8-15 [facility] Comment on above: Order Comment: Speci men Type: BLOOD SPECIMENOrdering Facility: [facility] Address: [address] [place] [address] Performed By: #### 2 4321-2 ####[facility] MILLTOWNCLIA [id number] [place] [address] [place] Calcium [Mass/Vol] 9.3 mg/dL Normal 8.5-10.2 [facility] Comment on above: Order Comment: Speci men Type: BLOOD SPECIMENOrdering Facility: [facility] Address: [address] [place] [address] Performed By: #### 2 4321-2 ####[facility] HOSPITALWNCLIA [id number] [place] [address] [place] Chloride [Moles/Vol] 102 mmol/L Normal 98-107 [facility] Comment on above: Order Comment: Speci men Type: BLOOD SPECIMENOrdering Facility: [facility] Address: [address] [place] [address] Performed By: #### 2 4321-2 ####[facility] MILLTOWNCLIA [id number] [place] [address] [place] CO2 [Moles/Vol] 28 mmol/L Normal 22-30 [facility] Comment on above: Order Comment: Speci men Type: BLOOD SPECIMENOrdering Facility: [facility] Address: [address] [place] [address] Performed By: #### 2 4321-2 ####[facility] MILLPLYMOUTH MEETINGNCLIA [id number] [place] [address] [place] Creatinine [Mass/Vol] 1.08 mg/dL Normal 0.73-1.22 [facility] Comment on above: Order Comment: Bassam hong Type: BLOOD SPECIMENOrdering Facility: [facility] Address: [address] [place] [address] Performed By: #### 2 4321-2 ####[facility] [id number] [place] [address] [place] Creatinine and Glomerular filtration rate.predicted panel (S/P/Bld) 73 mL/min/1.73m??? Normal >=60 [facility] Comment on above: Order Comment: Bassam hong Type: BLOOD SPECIMENOrdering Facility: [facility] Address: [address] [place] [address] Result Comment: Beth mated Glomerular Filtration Rate [...] actual GFR. Performed By: #### 2 4321-2 ####[facility] [id number] [place] [address] [place] Glucose [Mass/Vol] 99 mg/dL Normal 74-99 [facility] Comment on above: Order Comment: Bassam hong Type: BLOOD SPECIMENOrdering Facility: [facility] Address: [address] [place] [address] Result Comment: The [place] [employer] (ADA) provides guidance for cutoff [...] Standards of Medical Care in Diabetes 2016, [place] [employer]. Diabetes Care. 2016.39(Suppl 1). Performed By: #### 2 4321-2 ####[facility] BIENVENIDOMariannaANGELICAKATERINShireen [id number] [place] [address] [place] Potassium [Moles/Vol] 4.1 mmol/L Normal 3.7-5.1 [facility] Comment on above: Order Comment: Speci men Type: BLOOD SPECIMENOrdering Facility: [facility] Address: [address] [place] [address] Performed By: #### 2 4321-2 ####[facility] HOSPITALANGELICAShireen [id number] [place] [address] [place] Sodium [Moles/Vol] 139 mmol/L Normal 136-144 [facility] Comment on above: Order Comment: Speci men Type: BLOOD SPECIMENOrdering Facility: [facility] Address: [address] [place] [address] Performed By: #### 2 4321-2 ####[facility] CENTERShireen [id number] [place] [address] [place] Urea nitrogen [Mass/Vol] 22 mg/dL Normal 9-24 [facility] Comment on above: Order Comment: Speci men Type: BLOOD SPECIMENOrdering Facility: [facility] Address: [address] [place] [address] Performed By: #### 2 4321-2 ####[facility] HOSPITALNCLIA [id number] [place] [address] [place] CBC W Auto Differential pane l (Bld)on 07-14-2024 Basophils (Bld) [#/Vol] 10*3/uL Normal <0.11 [facility] Comment on above: Order Comment: Speci men Type: BLOOD SPECIMENOrdering Facility: [facility] Address: [address] [place] [address] Performed By: #### 5 7021-8 ####[facility] MILLWNCLIA [id number] [place] [address] [place] Basophils/100 WBC (Bld) 0.4 % Normal [facility] Comment on above: Order Comment: Speci men Type: BLOOD SPECIMENOrdering Facility: [facility] Address: [address] [place] [address] Performed By: #### 5 7021-8 ####[facility]IRHILLLIA [id number] [place] [address] [place] Differential cell count method Nom (Bld) Auto Normal [facility] Comment on above: Order Comment: Speci men Type: BLOOD SPECIMENOrdering Facility: [facility] Address: [address] [place] [address] Performed By: #### 5 7021-8 ####[facility]ILLLIA [id number] [place] [address] [place] Eosinophils (Bld) [#/Vol] 0.24 10*3/uL Normal <0.46 [facility] Comment on above: Order Comment: Speci men Type: BLOOD SPECIMENOrdering Facility: [facility] Address: [address] [place] [address] Performed By: #### 5 7021-8 ####[facility]ILLLIA [id number] [place] [address] [place] Eosinophils/100 WBC (Bld) 4.8 % Normal [facility] Comment on above: Order Comment: Speci men Type: BLOOD SPECIMENOrdering Facility: [facility] Address: [address] [place] [address] Performed By: #### 5 7021-8 ####[facility] HOSPITALNCLIA [id number] [place] [address] [place] Erythrocyte distribution width (RBC) [Ratio] 20.7 % High 11.5-15.0 [facility] Comment on above: Order Comment: Speci men Type: BLOOD SPECIMENOrdering Facility: [facility] Address: [address] [place] [address] Performed By: #### 5 7021-8 ####[facility] HOSPITALNCSALT [facility] [id number] [place] [address] [place] Hematocrit (Bld) [Volume fraction] 31.1 % Low 39.0-51.0 [facility] Comment on above: Order Comment: Speci men Type: BLOOD SPECIMENOrdering Facility: [facility] Address: [address] [place] [address] Performed By: #### 5 7021-8 ####[facility] [id number] [place] [address] [place] Hemoglobin (Bld) [Mass/Vol] 9.4 g/dL Low 13.0-17.0 [facility] Comment on above: Order Comment: Speci men Type: BLOOD SPECIMENOrdering Facility: [facility] Address: [address] [place] [address] Performed By: #### 5 7021-8 ####[facility] [id number] [place] [address] [place] Immature granulocytes (Bld) [#/Vol] 10*3/uL Normal <0.10 [facility] Comment on above: Order Comment: Speci men Type: BLOOD SPECIMENOrdering Facility: [facility] Address: [address] [place] [address] Performed By: #### 5 7021-8 ####[facility] [id number] [place] [address] [place] Immature granulocytes/100 WBC (Bld) 0.4 % Normal [facility] Comment on above: Order Comment: Speci men Type: BLOOD SPECIMENOrdering Facility: [facility] Address: [address] [place] [address] Performed By: #### 5 7021-8 ####[facility] [id number] [place] [address] [place] Lymphocytes (Bld) [#/Vol] 2.11 10*3/uL Normal 1.00-4.00 [facility] Comment on above: Order Comment: Speci men Type: BLOOD SPECIMENOrdering Facility: [facility] Address: [address] [place] [address] Performed By: #### 5 7021-8 ####[facility] [id number] [place] [address] [place] Lymphocytes/100 WBC (Bld) 41.9 % Normal [facility] Comment on above: Order Comment: Speci men Type: BLOOD SPECIMENOrdering Facility: [facility] Address: [address] [place] [address] Performed By: #### 5 7021-8 ####[facility] [id number] [place] [address] [place] MCH (RBC) [Entitic mass] 24.3 pg Low 26.0-34.0 [facility] Comment on above: Order Comment: Speci men Type: BLOOD SPECIMENOrdering Facility: [facility] Address: [address] [place] [address] Performed By: #### 5 7021-8 ####[facility]ENTERA [id number] [place] [address] [place] MCHC (RBC) [Mass/Vol] 30.2 g/dL Low 30.5-36.0 [facility] Comment on above: Order Comment: Speci men Type: BLOOD SPECIMENOrdering Facility: [facility] Address: [address] [place] [address] Performed By: #### 5 7021-8 ####[facility] HOSPITALNCLIA [id number] [place] [address] [place] MCV (RBC) [Entitic vol] 80.4 fL Normal 80.0-100.0 [facility] Comment on above: Order Comment: Speci men Type: BLOOD SPECIMENOrdering Facility: [facility] Address: [address] [place] [address] Performed By: #### 5 7021-8 ####HIALEAH HOSPITALHEAVENA [id number] [place] [address] [place] Monocytes (Bld) [#/Vol] 0.36 10*3/uL Normal <0.87 [facility] Comment on above: Order Comment: Speci men Type: BLOOD SPECIMENOrdering Facility: [facility] Address: [address] [place] [address] Performed By: #### 5 7021-8 ####[facility] CENTERA [id number] [place] [address] [place] Monocytes/100 WBC (Bld) 7.2 % Normal [facility] Comment on above: Order Comment: Speci men Type: BLOOD SPECIMENOrdering Facility: [facility] Address: [address] [place] [address] Performed By: #### 5 7021-8 ####[facility]FAIRHILLLIA [id number] [place] [address] [place] Neutrophils (Bld) [#/Vol] 2.28 10*3/uL Normal 1.45-7.50 [facility] Comment on above: Order Comment: Speci men Type: BLOOD SPECIMENOrdering Facility: [facility] Address: [address] [place] [address] Performed By: #### 5 7021-8 ####[facility] HOSPITALNCLIA [id number] [place] [address] [place] Neutrophils/100 WBC (Bld) 45.3 % Normal [facility] Comment on above: Order Comment: Speci men Type: BLOOD SPECIMENOrdering Facility: [facility] Address: [address] [place] [address] Performed By: #### 5 7021-8 ####[facility] [id number] [place] [address] [place] Nucleated RBC (Bld) [#/Vol] 10*3/uL Normal <0.01 [facility] Comment on above: Order Comment: Speci men Type: BLOOD SPECIMENOrdering Facility: [facility] Address: [address] [place] [address] Performed By: #### 5 7021-8 ####[facility] [id number] [place] [address] [place] Nucleated RBC/100 WBC (Bld) [Ratio] 0.0 /100 WBC Normal [facility] Comment on above: Order Comment: Speci men Type: BLOOD SPECIMENOrdering Facility: [facility] Address: [address] [place] [address] Performed By: #### 5 7021-8 ####[facility] [id number] [place] [address] [place] Platelet mean volume (Bld) [Entitic vol] 8.4 fL Low 9.0-12.7 [facility] Comment on above: Order Comment: Speci men Type: BLOOD SPECIMENOrdering Facility: [facility] Address: [address] [place] [address] Performed By: #### 5 7021-8 ####[facility] [id number] [place] [address] [place] Platelets (Bld) [#/Vol] 171 10*3/uL Normal 150-400 [facility] Comment on above: Order Comment: Speci men Type: BLOOD SPECIMENOrdering Facility: [facility] Address: [address] [place] [address] Performed By: #### 5 7021-8 ####[facility] BIENVENIDOPLYMOUTH MEETINGHEAVENA [id number] [place] [address] [place] RBC (Bld) [#/Vol] 3.87 10*6/uL Low 4.20-6.00 [facility] Comment on above: Order Comment: Speci men Type: BLOOD SPECIMENOrdering Facility: [facility] Address: [address] [place] [address] Performed By: #### 5 7021-8 ####[facility] BIENVENIDOPLYMOUTH MEETINGNCLIA [id number] [place] [address] [place] WBC (Bld) [#/Vol] 5.03 10*3/uL Normal 3.70-11.00 [facility] Comment on above: Order Comment: Speci men Type: BLOOD SPECIMENOrdering Facility: [facility] Address: [address] [place] [address] Performed By: #### 5 7021-8 ####[facility] [facility] [id number] [place] [address] [place] CNNURSEon 07-07-2024 CNNURSE Normal [facility] CNPNon 07-07-2024 CNPN Normal [facility] CNOVon 06-24-2024 CNOV Normal [facility] CNOVon 06-17-2024 CNOV Normal [facility] CNPNon 06-17-2024 CNPN Normal [facility] Pathology biopsy report Regino (Tiss)on 06-17-2024 AP DISCLAIMER Normal [facility] Comment on above: Order Comment: Speci men Type: TISSUE SPECIMENOrdering Facility: [facility] Address: [address] [place] [address] Result Comment: Ty de la rosa Developed Test (LDT) Disclaimer:Performance characteristics of immunohistochemical, immunofluorescent, and chromogenic in-situ hybridization tests have been determined by the performing laboratory within [facility] ([facility], [facility], [facility], [facility], [facility], [facility], or [facility]) in a manner consistent with CLIA requirements. One or more of these tests may not have been cleared or approved by the FDA. RT-PLM is regulated under CLIA as qualified to perform high-complexity testing. These tests are used for clinical purposes. These should not be regarded as investigational or for research. Positive and negative controls stain appropriately. Performed By: #### 6 6121-5 ####[facility] LABIA [id number] [place] [address] [place] CASE REPORT Normal [facility] Comment on above: Order Comment: Speci men Type: TISSUE SPECIMENOrdering Facility: [facility] Address: [address] [place] [address] Result Comment: Surg ical Pathology Report Case: [id number] Provider: Madelaine Bronson MD Collected: 06/17/2024 10:36 AMOrdering Location: Dermatology Received: 06/17/2024 03:49 PMPathologist: Candace Eugene MDSpecimen: Skin, Excision, right crown of scalp Performed By: #### 6 6121-5 ####[facility] LABIA [id number] [place] [address] [place] CLINICAL HISTORY bx proven SCC, Mohs case, non- marginal tissue ( mod diff- SCC) . Suspicious for intravascular SCC, r/o PNI, LVI Normal [facility] Comment on above: Order Comment: Speci men Type: TISSUE SPECIMENOrdering Facility: [facility] Address: [address] [place] [address] Performed By: #### 6 6121-5 ####[facility] LABIA [id number] [place] [address] [place] DIAGNOSIS COMMENT A. Perineural invasi on and lymphovascular space invasion are not identified. The maximum depth of the transected tumor is 8 mm. Normal [facility] Comment on above: Order Comment: Speci men Type: TISSUE SPECIMENOrdering Facility: [facility] Address: [address] [place] [address] Performed By: #### 6 6121-5 ####[facility] LABCLIA [id number] [address] [place] FINAL DIAGNOSIS Normal [facility] Comment on above: Order Comment: Speci men Type: TISSUE SPECIMENOrdering Facility: [facility] Address: [address] [place] [address] Result Comment: A. 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, see comment.[place]AD[place]/LANG 06/21/2024 at 1001 EDT Performed By: #### 6 6121-5 ####[facility] LABCLIA [id number] [address] STATES OF [facility] FINAL PERFORMING LAB Normal [facility] Comment on above: Order Comment: Speci men Type: TISSUE SPECIMENOrdering Facility: [facility] Address: [address] [place] [address] Result Comment: Diag nostic interpretation performed at: [facility], [address] [place] [address] CLIA# [id number] Director: Misha Prater MD Performed By: #### 6 6121-5 ####[facility] LABCLIA [id number] [place] [address] [place] GROSS DESCRIPTION Normal [facility] Comment on above: Order Comment: Speci men Type: TISSUE SPECIMENOrdering Facility: [facility] Address: [address] [place] [address] Result Comment: A. S kin, ExcisionReceived in formalin are two irregular segments of skin and subcutaneous tissue aggregating to 2.5 x 2.1 x 0.5 cm. The specimens were previously inked by the surgeon. Totally submitted in two cassettes.Gross examination performed at [facility], [address] [place], [place] [id number] 06/18/2024 3:36 AM Performed By: #### 6 6121-5 ####[facility] LABCLIA [id number] [address] [address] [place] Basic metabolic 2000 panelon 06-16-2024 Anion gap [Moles/Vol] 9 mmol/L Normal 8-15 [facility] Comment on above: Order Comment: Speci men Type: BLOOD SPECIMENOrdering Facility: [facility] Address: [address] [place] [address] Performed By: #### 2 4321-2 ####[facility]ITALNCMJ [id number] [place] [address] [place] Calcium [Mass/Vol] 9.4 mg/dL Normal 8.5-10.2 [facility] Comment on above: Order Comment: Speci men Type: BLOOD SPECIMENOrdering Facility: [facility] Address: [address] [place] [address] Performed By: #### 2 4321-2 ####[facility] [id number] [place] [address] [place] Chloride [Moles/Vol] 100 mmol/L Normal 98-107 [facility] Comment on above: Order Comment: Speci men Type: BLOOD SPECIMENOrdering Facility: [facility] Address: [address] [place] [address] Performed By: #### 2 4321-2 ####[facility]PITALNCLIA [id number] [place] [address] [place] CO2 [Moles/Vol] 29 mmol/L Normal 22-30 [facility] Comment on above: Order Comment: Speci men Type: BLOOD SPECIMENOrdering Facility: [facility] Address: [address] [place] [address] Performed By: #### 2 4321-2 ####[facility] [id number] [place] [address] [place] Creatinine [Mass/Vol] 1.00 mg/dL Normal 0.73-1.22 [facility] Comment on above: Order Comment: Bassam hong Type: BLOOD SPECIMENOrdering Facility: [facility] Address: [address] [place] [address] Performed By: #### 2 4321-2 ####[facility] [id number] [place] [address] [place] Creatinine and Glomerular filtration rate.predicted panel (S/P/Bld) 80 mL/min/1.73m??? Normal >=60 [facility] Comment on above: Order Comment: Bassam hong Type: BLOOD SPECIMENOrdering Facility: [facility] Address: [address] [place] [address] Result Comment: Beth mated Glomerular Filtration Rate [...] actual GFR. Performed By: #### 2 4321-2 ####[facility] [id number] [place] [address] [place] Glucose [Mass/Vol] 149 mg/dL High 74-99 [facility] Comment on above: Order Comment: Jose Manueli hal Type: BLOOD SPECIMENOrdering Facility: [facility] Address: [address] [place] [address] Result Comment: The [place] [employer] (ADA) provides guidance for cutoff [...] Standards of Medical Care in Diabetes 2016, [place] [employer]. Diabetes Care. 2016.39(Suppl 1). Performed By: #### 2 4321-2 ####[facility]FAIRHILLLIShireen [id number] [place] [address] [place] Potassium [Moles/Vol] 3.9 mmol/L Normal 3.7-5.1 [facility] Comment on above: Order Comment: Jose Manueli hal Type: BLOOD SPECIMENOrdering Facility: [facility] Address: [address] [place] [address] Performed By: #### 2 4321-2 ####[facility] [id number] [place] [address] [place] Sodium [Moles/Vol] 138 mmol/L Normal 136-144 [facility] Comment on above: Order Comment: Bassam hong Type: BLOOD SPECIMENOrdering Facility: [facility] Address: [address] [place] [address] Performed By: #### 2 4321-2 ####[facility] [id number] [place] [address] [place] Urea nitrogen [Mass/Vol] 21 mg/dL Normal 9-24 [facility] Comment on above: Order Comment: Speci men Type: BLOOD SPECIMENOrdering Facility: [facility] Address: [address] [place] [address] Performed By: #### 2 4321-2 ####[facility] [id number] [place] [address] [place] CBC W Auto Differential pane l (Bld)on 06-16-2024 Basophils (Bld) [#/Vol] 10*3/uL Normal <0.11 [facility] Comment on above: Order Comment: Speci men Type: BLOOD SPECIMENOrdering Facility: [facility] Address: [address] [place] [address] Performed By: #### 5 7021-8 ####[facility] HOSPITALWNYLIA [id number] [place] [address] [place] Basophils/100 WBC (Bld) 0.3 % Normal [facility] Comment on above: Order Comment: Speci men Type: BLOOD SPECIMENOrdering Facility: [facility] Address: [address] [place] [address] Performed By: #### 5 7021-8 ####[facility] [id number] [place] [address] [place] Differential cell count method Nom (Bld) Auto Normal [facility] Comment on above: Order Comment: Speci men Type: BLOOD SPECIMENOrdering Facility: [facility] Address: [address] [place] [address] Performed By: #### 5 7021-8 ####[facility] [id number] [place] [address] [place] Eosinophils (Bld) [#/Vol] 0.31 10*3/uL Normal <0.46 [facility] Comment on above: Order Comment: Speci men Type: BLOOD SPECIMENOrdering Facility: [facility] Address: [address] [place] [address] Performed By: #### 5 7021-8 ####[facility]FAIRHILLLIA [id number] [place] [address] [place] Eosinophils/100 WBC (Bld) 5.0 % Normal [facility] Comment on above: Order Comment: Speci men Type: BLOOD SPECIMENOrdering Facility: [facility] Address: [address] [place] [address] Performed By: #### 5 7021-8 ####[facility]PITALNCLIA [id number] [place] [address] [place] Erythrocyte distribution width (RBC) [Ratio] 20.5 % High 11.5-15.0 [facility] Comment on above: Order Comment: Speci men Type: BLOOD SPECIMENOrdering Facility: [facility] Address: [address] [place] [address] Performed By: #### 5 7021-8 ####[facility] [id number] [place] [address] [place] Hematocrit (Bld) [Volume fraction] 30.5 % Low 39.0-51.0 [facility] Comment on above: Order Comment: Speci men Type: BLOOD SPECIMENOrdering Facility: [facility] Address: [address] [place] [address] Performed By: #### 5 7021-8 ####[facility] [id number] [place] [address] [place] Hemoglobin (Bld) [Mass/Vol] 9.2 g/dL Low 13.0-17.0 [facility] Comment on above: Order Comment: Speci men Type: BLOOD SPECIMENOrdering Facility: [facility] Address: [address] [place] [address] Performed By: #### 5 7021-8 ####[facility] [id number] [place] [address] [place] Immature granulocytes (Bld) [#/Vol] 10*3/uL Normal <0.10 [facility] Comment on above: Order Comment: Speci men Type: BLOOD SPECIMENOrdering Facility: [facility] Address: [address] [place] [address] Performed By: #### 5 7021-8 ####[facility] [id number] [place] [address] [place] Immature granulocytes/100 WBC (Bld) 0.3 % Normal [facility] Comment on above: Order Comment: Speci men Type: BLOOD SPECIMENOrdering Facility: [facility] Address: [address] [place] [address] Performed By: #### 5 7021-8 ####[facility] [id number] [place] [address] [place] Lymphocytes (Bld) [#/Vol] 2.02 10*3/uL Normal 1.00-4.00 [facility] Comment on above: Order Comment: Speci men Type: BLOOD SPECIMENOrdering Facility: [facility] Address: [address] [place] [address] Performed By: #### 5 7021-8 ####[facility]PITALNCSALT [facility] [id number] [place] [address] [place] Lymphocytes/100 WBC (Bld) 32.3 % Normal [facility] Comment on above: Order Comment: Speci men Type: BLOOD SPECIMENOrdering Facility: [facility] Address: [address] [place] [address] Performed By: #### 5 7021-8 ####[facility]OSPITALNCLIA [id number] [place] [address] [place] MCH (RBC) [Entitic mass] 24.5 pg Low 26.0-34.0 [facility] Comment on above: Order Comment: Speci men Type: BLOOD SPECIMENOrdering Facility: [facility] Address: [address] [place] [address] Performed By: #### 5 7021-8 ####[facility]ITALNCLIA [id number] [place] [address] [place] MCHC (RBC) [Mass/Vol] 30.2 g/dL Low 30.5-36.0 [facility] Comment on above: Order Comment: Speci men Type: BLOOD SPECIMENOrdering Facility: [facility] Address: [address] [place] [address] Performed By: #### 5 7021-8 ####[facility] BIENVENIDOESTHER [id number] [place] [address] [place] MCV (RBC) [Entitic vol] 81.1 fL Normal 80.0-100.0 [facility] Comment on above: Order Comment: Speci men Type: BLOOD SPECIMENOrdering Facility: [facility] Address: [address] [place] [address] Performed By: #### 5 7021-8 ####[facility] HOSPITALCINDY [id number] [place] [address] [place] Monocytes (Bld) [#/Vol] 0.47 10*3/uL Normal <0.87 [facility] Comment on above: Order Comment: Speci men Type: BLOOD SPECIMENOrdering Facility: [facility] Address: [address] [place] [address] Performed By: #### 5 7021-8 ####[facility]OSPITALNCLIA [id number] [place] [address] [place] Monocytes/100 WBC (Bld) 7.5 % Normal [facility] Comment on above: Order Comment: Speci men Type: BLOOD SPECIMENOrdering Facility: [facility] Address: [address] [place] [address] Performed By: #### 5 7021-8 ####[facility]OSPITALNCLIA [id number] [place] [address] [place] Neutrophils (Bld) [#/Vol] 3.42 10*3/uL Normal 1.45-7.50 [facility] Comment on above: Order Comment: Speci men Type: BLOOD SPECIMENOrdering Facility: [facility] Address: [address] [place] [address] Performed By: #### 5 7021-8 ####[facility] HOSPITALANGELICALIA [id number] [place] [address] [place] Neutrophils/100 WBC (Bld) 54.6 % Normal [facility] Comment on above: Order Comment: Speci men Type: BLOOD SPECIMENOrdering Facility: [facility] Address: [address] [place] [address] Performed By: #### 5 7021-8 ####[facility]FAIRHILLLIA [id number] [place] [address] [place] Nucleated RBC (Bld) [#/Vol] 10*3/uL Normal <0.01 [facility] Comment on above: Order Comment: Speci men Type: BLOOD SPECIMENOrdering Facility: [facility] Address: [address] [place] [address] Performed By: #### 5 7021-8 ####[facility] [id number] [place] [address] [place] Nucleated RBC/100 WBC (Bld) [Ratio] 0.0 /100 WBC Normal [facility] Comment on above: Order Comment: Speci men Type: BLOOD SPECIMENOrdering Facility: [facility] Address: [address] [place] [address] Performed By: #### 5 7021-8 ####[facility]A [id number] [place] [address] [place] Platelet mean volume (Bld) [Entitic vol] 8.4 fL Low 9.0-12.7 [facility] Comment on above: Order Comment: Speci men Type: BLOOD SPECIMENOrdering Facility: [facility] Address: [address] [place] [address] Performed By: #### 5 7021-8 ####[facility] [id number] [place] [address] [place] Platelets (Bld) [#/Vol] 207 10*3/uL Normal 150-400 [facility] Comment on above: Order Comment: Speci men Type: BLOOD SPECIMENOrdering Facility: [facility] Address: [address] [place] [address] Performed By: #### 5 7021-8 ####[facility] HOSPITALNCKATERINA [id number] [place] [address] [place] RBC (Bld) [#/Vol] 3.76 10*6/uL Low 4.20-6.00 [facility] Comment on above: Order Comment: Speci men Type: BLOOD SPECIMENOrdering Facility: [facility] Address: [address] [place] [address] Performed By: #### 5 7021-8 ####[facility]OSPITALNCLIA [id number] [place] [address] [place] WBC (Bld) [#/Vol] 6.26 10*3/uL Normal 3.70-11.00 [facility] Comment on above: Order Comment: Speci men Type: BLOOD SPECIMENOrdering Facility: [facility] Address: [address] [place] [address] Performed By: #### 5 7021-8 ####[facility] HOSPITALNCLIA [id number] [place] [address] [place] [facility] Prostate specific Ag [Mass/Vol] ng/mL Normal <2.60 [facility] Comment on above: Order Comment: Speci men Type: BLOOD SPECIMENOrdering Facility: [facility] Address: [address] [place] [address] Result Comment: Tota l PSA test methodology used is the Electrochemiluminescence Immunoassay by [employer]. Total PSA values by differing methodologies cannot be interchanged. Performed By: #### 2 857-1 ####[facility] LABCLIA [id number] [facility] [place] [address] [place] Basic metabolic 2000 panelon 05-12-2024 Anion gap [Moles/Vol] 8 mmol/L Normal 8-15 [facility] Comment on above: Order Comment: Speci men Type: BLOOD SPECIMENOrdering Facility: [facility] Address: [address] [place] [address] Performed By: #### 2 4321-2 ####[facility] NIKOLE MILLWANGELICALIA [id number] [place] [address] [place] Calcium [Mass/Vol] 9.3 mg/dL Normal 8.5-10.2 [facility] Comment on above: Order Comment: Speci men Type: BLOOD SPECIMENOrdering Facility: [facility] Address: [address] [place] [address] Performed By: #### 2 4321-2 ####[facility] MILLWNCLIA [id number] [place] [address] [place] Chloride [Moles/Vol] 103 mmol/L Normal 98-107 [facility] Comment on above: Order Comment: Speci men Type: BLOOD SPECIMENOrdering Facility: [facility] Address: [address] [place] [address] Performed By: #### 2 4321-2 ####[facility] MILLWNCLIA [id number] [place] [address] [place] CO2 [Moles/Vol] 28 mmol/L Normal 22-30 [facility] Comment on above: Order Comment: Speci men Type: BLOOD SPECIMENOrdering Facility: [facility] Address: [address] [place] [address] Performed By: #### 2 4321-2 ####[facility] NIKOLE MILLTOWNCLIA [id number] [place] [address] [place] Creatinine [Mass/Vol] 0.97 mg/dL Normal 0.73-1.22 [facility] Comment on above: Order Comment: Bassam hong Type: BLOOD SPECIMENOrdering Facility: [facility] Address: [address] [place] [address] Performed By: #### 2 4321-2 ####[facility] [id number] [place] [address] [place] Creatinine and Glomerular filtration rate.predicted panel (S/P/Bld) 83 mL/min/1.73m??? Normal >=60 [facility] Comment on above: Order Comment: Bassam hong Type: BLOOD SPECIMENOrdering Facility: [facility] Address: [address] [place] [address] Result Comment: Beth mated Glomerular Filtration Rate [...] actual GFR. Performed By: #### 2 4321-2 ####[facility] [id number] [place] [address] [place] Glucose [Mass/Vol] 133 mg/dL High 74-99 [facility] Comment on above: Order Comment: Bassam hong Type: BLOOD SPECIMENOrdering Facility: [facility] Address: [address] [place] [address] Result Comment: The [place] [employer] Association (ADA) provides guidance for cutoff [...] Standards of Medical Care in Diabetes 2016, [place] [employer]. Diabetes Care. 2016.39(Suppl 1). Performed By: #### 2 4321-2 ####[facility] ANDREW [id number] [place] [address] [place] Potassium [Moles/Vol] 4.1 mmol/L Normal 3.7-5.1 [facility] Comment on above: Order Comment: Speci men Type: BLOOD SPECIMENOrdering Facility: [facility] Address: [address] [place] [address] Performed By: #### 2 4321-2 ####[facility] HOSPITALANGELICAShireen [id number] [place] [address] [place] Sodium [Moles/Vol] 139 mmol/L Normal 136-144 [facility] Comment on above: Order Comment: Speci men Type: BLOOD SPECIMENOrdering Facility: [facility] Address: [address] [place] [address] Performed By: #### 2 4321-2 ####[facility]FAIRHILLMJ [id number] [place] [address] [place] Urea nitrogen [Mass/Vol] 18 mg/dL Normal 9-24 [facility] Comment on above: Order Comment: Speci men Type: BLOOD SPECIMENOrdering Facility: [facility] Address: [address] [place] [address] Performed By: #### 2 4321-2 ####[facility] HOSPITALNCLI [id number] [place] [address] [place] CBC W Auto Differential pane l (Bld)on 05-12-2024 Basophils (Bld) [#/Vol] 10*3/uL Normal <0.11 [facility] Comment on above: Order Comment: Speci men Type: BLOOD SPECIMENOrdering Facility: [facility] Address: [address] [place] [address] Performed By: #### 5 7021-8 ####[facility] BIENVENIDOWANGELICALIA [id number] [place] [address] [place] Basophils/100 WBC (Bld) 0.2 % Normal [facility] Comment on above: Order Comment: Speci men Type: BLOOD SPECIMENOrdering Facility: [facility] Address: [address] [place] [address] Performed By: #### 5 7021-8 ####[facility] BIENVENIDOPLYMOUTH MEETINGANGELICALIA [id number] [place] [address] [place] Differential cell count method Nom (Bld) Auto Normal [facility] Comment on above: Order Comment: Speci men Type: BLOOD SPECIMENOrdering Facility: [facility] Address: [address] [place] [address] Performed By: #### 5 7021-8 ####HIALEAH HOSPITALANGELICAKATERINA [id number] [place] [address] [place] Eosinophils (Bld) [#/Vol] 0.25 10*3/uL Normal <0.46 [facility] Comment on above: Order Comment: Speci men Type: BLOOD SPECIMENOrdering Facility: [facility] Address: [address] [place] [address] Performed By: #### 5 7021-8 ####HIALEAH HOSPITALHEAVENA [id number] [place] [address] [place] Eosinophils/100 WBC (Bld) 4.5 % Normal [facility] Comment on above: Order Comment: Speci men Type: BLOOD SPECIMENOrdering Facility: [facility] Address: [address] [place] [address] Performed By: #### 5 7021-8 ####[facility] HOSPITALNCLIA [id number] [place] [address] [place] Erythrocyte distribution width (RBC) [Ratio] 20.5 % High 11.5-15.0 [facility] Comment on above: Order Comment: Speci men Type: BLOOD SPECIMENOrdering Facility: [facility] Address: [address] [place] [address] Performed By: #### 5 7021-8 ####[facility]PITALNCSALT [facility] [id number] [place] [address] [place] Hematocrit (Bld) [Volume fraction] 32.0 % Low 39.0-51.0 [facility] Comment on above: Order Comment: Speci men Type: BLOOD SPECIMENOrdering Facility: [facility] Address: [address] [place] [address] Performed By: #### 5 7021-8 ####[facility]OSPITALNCSALT [facility] [id number] [place] [address] [place] Hemoglobin (Bld) [Mass/Vol] 9.7 g/dL Low 13.0-17.0 [facility] Comment on above: Order Comment: Speci men Type: BLOOD SPECIMENOrdering Facility: [facility] Address: [address] [place] [address] Performed By: #### 5 7021-8 ####HIAL[facility]AH HOSPITALNCLIA [id number] [place] [address] [place] Immature granulocytes (Bld) [#/Vol] 10*3/uL Normal <0.10 [facility] Comment on above: Order Comment: Speci men Type: BLOOD SPECIMENOrdering Facility: [facility] Address: [address] [place] [address] Performed By: #### 5 7021-8 ####[facility]A [id number] [place] [address] [place] Immature granulocytes/100 WBC (Bld) 0.4 % Normal [facility] Comment on above: Order Comment: Speci men Type: BLOOD SPECIMENOrdering Facility: [facility] Address: [address] [place] [address] Performed By: #### 5 7021-8 ####[facility] MILLWNCLIA [id number] [place] [address] [place] Lymphocytes (Bld) [#/Vol] 2.47 10*3/uL Normal 1.00-4.00 [facility] Comment on above: Order Comment: Speci men Type: BLOOD SPECIMENOrdering Facility: [facility] Address: [address] [place] [address] Performed By: #### 5 7021-8 ####[facility] HOSPITALWNCLIA [id number] [place] [address] [place] Lymphocytes/100 WBC (Bld) 44.2 % Normal [facility] Comment on above: Order Comment: Speci men Type: BLOOD SPECIMENOrdering Facility: [facility] Address: [address] [place] [address] Performed By: #### 5 7021-8 ####[facility] HOSPITALNCLIA [id number] [place] [address] [place] MCH (RBC) [Entitic mass] 24.5 pg Low 26.0-34.0 [facility] Comment on above: Order Comment: Speci men Type: BLOOD SPECIMENOrdering Facility: [facility] Address: [address] [place] [address] Performed By: #### 5 7021-8 ####[facility] MILLPLYMOUTH MEETINGNCLIA [id number] [place] [address] [place] MCHC (RBC) [Mass/Vol] 30.3 g/dL Low 30.5-36.0 [facility] Comment on above: Order Comment: Speci men Type: BLOOD SPECIMENOrdering Facility: [facility] Address: [address] [place] [address] Performed By: #### 5 7021-8 ####[facility] HOSPITALNCLIA [id number] [place] [address] [place] MCV (RBC) [Entitic vol] 80.8 fL Normal 80.0-100.0 [facility] Comment on above: Order Comment: Speci men Type: BLOOD SPECIMENOrdering Facility: [facility] Address: [address] [place] [address] Performed By: #### 5 7021-8 ####[facility] [id number] [place] [address] [place] Monocytes (Bld) [#/Vol] 0.37 10*3/uL Normal <0.87 [facility] Comment on above: Order Comment: Speci men Type: BLOOD SPECIMENOrdering Facility: [facility] Address: [address] [place] [address] Performed By: #### 5 7021-8 ####[facility] [id number] [place] [address] [place] Monocytes/100 WBC (Bld) 6.6 % Normal [facility] Comment on above: Order Comment: Speci men Type: BLOOD SPECIMENOrdering Facility: [facility] Address: [address] [place] [address] Performed By: #### 5 7021-8 ####[facility]A [id number] [place] [address] [place] Neutrophils (Bld) [#/Vol] 2.47 10*3/uL Normal 1.45-7.50 [facility] Comment on above: Order Comment: Speci men Type: BLOOD SPECIMENOrdering Facility: [facility] Address: [address] [place] [address] Performed By: #### 5 7021-8 ####[facility] HOSPITALNCLIA [id number] [place] [address] [place] Neutrophils/100 WBC (Bld) 44.1 % Normal [facility] Comment on above: Order Comment: Speci men Type: BLOOD SPECIMENOrdering Facility: [facility] Address: [address] [place] [address] Performed By: #### 5 7021-8 ####HIALEAH HOSPITALNCKATERIN [id number] [place] [address] [place] Nucleated RBC (Bld) [#/Vol] 10*3/uL Normal <0.01 [facility] Comment on above: Order Comment: Speci men Type: BLOOD SPECIMENOrdering Facility: [facility] Address: [address] [place] [address] Performed By: #### 5 7021-8 ####[facility]OSPITALNCS[facility] [id number] [place] [address] [place] Nucleated RBC/100 WBC (Bld) [Ratio] 0.0 /100 WBC Normal [facility] Comment on above: Order Comment: Speci men Type: BLOOD SPECIMENOrdering Facility: [facility] Address: [address] [place] [address] Performed By: #### 5 7021-8 ####[facility] [id number] [place] [address] [place] Platelet mean volume (Bld) [Entitic vol] 8.4 fL Low 9.0-12.7 [facility] Comment on above: Order Comment: Speci men Type: BLOOD SPECIMENOrdering Facility: [facility] Address: [address] [place] [address] Performed By: #### 5 7021-8 ####[facility] HOSPITALNCLIA [id number] [place] [address] [place] Platelets (Bld) [#/Vol] 192 10*3/uL Normal 150-400 [facility] Comment on above: Order Comment: Speci men Type: BLOOD SPECIMENOrdering Facility: [facility] Address: [address] [place] [address] Performed By: #### 5 7021-8 ####HIAL[facility]AH HOSPITALNCLIA [id number] [place] [address] [place] RBC (Bld) [#/Vol] 3.96 10*6/uL Low 4.20-6.00 [facility] Comment on above: Order Comment: Speci men Type: BLOOD SPECIMENOrdering Facility: [facility] Address: [address] [place] [address] Performed By: #### 5 7021-8 ####HIALEAH HOSPITALNCA [id number] [place] [address] [place] WBC (Bld) [#/Vol] 5.59 10*3/uL Normal 3.70-11.00 [facility] Comment on above: Order Comment: Speci men Type: BLOOD SPECIMENOrdering Facility: [facility] Address: [address] [place] [address] Performed By: #### 5 7021-8 ####[facility]A [id number] [place] [address] [place] PSA SerPl-mCncon 05-12-2024 Prostate specific Ag [Mass/Vol] ng/mL Normal <2.60 [facility] Comment on above: Order Comment: Speci men Type: BLOOD SPECIMENOrdering Facility: [facility] Address: [address] [place] [address] Result Comment: Tota l PSA test methodology used is the Electrochemiluminescence Immunoassay by [employer]. Total PSA values by differing methodologies cannot be interchanged. Performed By: #### 2 857-1 ####[facility] LABCLIA [id number] [place] [address] [place] CNPNon 2024 CNPN Normal [facility] CNOVon 05-04-2024 CNOV Normal [facility] SURGICAL PATHOLOGYon 025 CASE REPORT Normal [facility] Comment on above: Order Comment: Speci men Type: TISSUE SPECIMENOrdering Facility: [facility] Address: [address] [place] [address] Result Comment: Surg ica Pathology Report Case: [id number] Provider: Richie Dejesus MD Collected: 05/04/2024 12:50 PMOrdering Location: Dermatology Received: 05/04/2024 02:24 PMPathologist: Gabi Gonzalez MDSpecimen: Skin, Shave Biopsy, right crown scalp Performed By: #### S ####[facility] LABCLIA [id number] [address] [place] CLINICAL HISTORY R/O nmsc Normal [facility] Comment on above: Order Comment: Speci men Type: TISSUE SPECIMENOrdering Facility: [facility] Address: [address] [place] [address] Performed By: #### S ####[facility] LABCLIA [id number] [address] [place] DIAGNOSIS COMMENT Normal [facility] Comment on above: Order Comment: Speci men Type: TISSUE SPECIMENOrdering Facility: [facility] Address: [address] [place] [address] Result Comment: 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 The epidermis is broadly transected by the deep biopsy margin. An invasive squamous cell carcinoma cannot entirely be excluded. Clinical correlation is recommended. Performed By: #### S ####[facility] LABCLIA [id number] [address] STATES OF [facility] FINAL DIAGNOSIS Normal [facility] Comment on above: Order Comment: Speci men Type: TISSUE SPECIMENOrdering Facility: [facility] Address: [address] [place] [address] Result Comment: A. S kin, right crown scalp, shave biopsy:- Squamous cell carcinoma, see comment.MP/NM/oracio 05/05/2024 Performed By: #### S ####[facility] LABCLIA [id number] [place] [address] [place] FINAL PERFORMING LAB Normal [facility] Comment on above: Order Comment: Speci men Type: TISSUE SPECIMENOrdering Facility: [facility] Address: [address] [place] [address] Result Comment: Diag nostic interpretation performed at: [facility], [address] [place] [address] CLIA# [id number] Director: Misha Prater MD Performed By: #### S ####[facility] LABCLIA [id number] [place] [address] [place] GROSS DESCRIPTION Normal [facility] Comment on above: Order Comment: Speci men Type: TISSUE SPECIMENOrdering Facility: [facility] Address: [address] [place] [address] Result Comment: A. S kin, Shave BiopsyReceived in formalin is a 1.5 x 1.0 x 0.3 cm shave of skin. On the skin surface there is a 1.5 cm yellow-white slightly elevated and firm area. The specimen is trisected. Totally submitted in two cassettes.[facility] May 04, 2024 9:01 PMGross examination performed at [facility], [address] [place] [address] Performed By: #### S ####[facility] LABCLIA [id number] [place] [address] [place] Basic metabolic 2000 panelon 04-14-2024 Anion gap [Moles/Vol] 7 mmol/L Low 8-15 [facility] Comment on above: Order Comment: Speci men Type: BLOOD SPECIMENOrdering Facility: [facility] Address: [address] [place] [address] Performed By: #### 2 4321-2 ####[facility]ILLLIA [id number] [place] [address] [place] Calcium [Mass/Vol] 9.7 mg/dL Normal 8.5-10.2 [facility] Comment on above: Order Comment: Speci men Type: BLOOD SPECIMENOrdering Facility: [facility] Address: [address] [place] [address] Performed By: #### 2 4321-2 ####[facility] MILLTOWNCLIA [id number] [place] [address] [place] Chloride [Moles/Vol] 104 mmol/L Normal 98-107 [facility] Comment on above: Order Comment: Speci men Type: BLOOD SPECIMENOrdering Facility: [facility] Address: [address] [place] [address] Performed By: #### 2 4321-2 ####[facility]FAIRHILLLIA [id number] [place] [address] [place] CO2 [Moles/Vol] 28 mmol/L Normal 22-30 [facility] Comment on above: Order Comment: Speci men Type: BLOOD SPECIMENOrdering Facility: [facility] Address: [address] [place] [address] Performed By: #### 2 4321-2 ####[facility] MILLWNCLIA [id number] [place] [address] [place] Creatinine [Mass/Vol] 0.97 mg/dL Normal 0.73-1.22 [facility] Comment on above: Order Comment: Speci men Type: BLOOD SPECIMENOrdering Facility: [facility] Address: [address] [place] [address] Performed By: #### 2 4321-2 ####[facility] HOSPITALWNCLIA [id number] [place] [address] [place] Creatinine and Glomerular filtration rate.predicted panel (S/P/Bld) 84 mL/min/1.73m??? Normal >=60 [facility] Comment on above: Order Comment: Bassam hong Type: BLOOD SPECIMENOrdering Facility: [facility] Address: [address] [place] [address] Result Comment: Beth mated Glomerular Filtration Rate [...] actual GFR. Performed By: #### 2 4321-2 ####[facility] [id number] [place] [address] [place] Glucose [Mass/Vol] 135 mg/dL High 74-99 [facility] Comment on above: Order Comment: Bassam hong Type: BLOOD SPECIMENOrdering Facility: [facility] Address: [address] [place] [address] Result Comment: The [place] [employer] (ADA) provides guidance for cutoff [...] Standards of Medical Care in Diabetes 2016, [place] [employer]. Diabetes Care. 2016.39(Suppl 1). Performed By: #### 2 4321-2 ####[facility] [id number] [place] [address] [place] Potassium [Moles/Vol] 3.9 mmol/L Normal 3.7-5.1 [facility] Comment on above: Order Comment: Speci men Type: BLOOD SPECIMENOrdering Facility: [facility] Address: [address] [place] [address] Performed By: #### 2 4321-2 ####[facility] HOSPITALANGELICASALT [facility] [id number] [place] [address] [place] Sodium [Moles/Vol] 139 mmol/L Normal 136-144 [facility] Comment on above: Order Comment: Speci men Type: BLOOD SPECIMENOrdering Facility: [facility] Address: [address] [place] [address] Performed By: #### 2 4321-2 ####[facility] [id number] [place] [address] [place] Urea nitrogen [Mass/Vol] 25 mg/dL High 9-24 [facility] Comment on above: Order Comment: Speci men Type: BLOOD SPECIMENOrdering Facility: [facility] Address: [address] [place] [address] Performed By: #### 2 4321-2 ####[facility]FAIRHILLLIA [id number] [place] [address] [place] CBC W Auto Differential pane l (Bld)on 04-14-2024 Basophils (Bld) [#/Vol] 10*3/uL Normal <0.11 [facility] Comment on above: Order Comment: Speci men Type: BLOOD SPECIMENOrdering Facility: [facility] Address: [address] [place] [address] Performed By: #### 5 7021-8 ####[facility]IAL[facility] HOSPITALNCA [id number] [place] [address] [place] Basophils/100 WBC (Bld) 0.2 % Normal [facility] Comment on above: Order Comment: Speci men Type: BLOOD SPECIMENOrdering Facility: [facility] Address: [address] [place] [address] Performed By: #### 5 7021-8 ####[facility] BIENVENIDOPLYMOUTH MEETINGANGELICALIA [id number] [place] [address] [place] Differential cell count method Nom (Bld) Auto Normal [facility] Comment on above: Order Comment: Speci men Type: BLOOD SPECIMENOrdering Facility: [facility] Address: [address] [place] [address] Performed By: #### 5 7021-8 ####[facility] [id number] [place] [address] [place] Eosinophils (Bld) [#/Vol] 0.18 10*3/uL Normal <0.46 [facility] Comment on above: Order Comment: Speci men Type: BLOOD SPECIMENOrdering Facility: [facility] Address: [address] [place] [address] Performed By: #### 5 7021-8 ####[facility] [id number] [place] [address] [place] Eosinophils/100 WBC (Bld) 3.6 % Normal [facility] Comment on above: Order Comment: Speci men Type: BLOOD SPECIMENOrdering Facility: [facility] Address: [address] [place] [address] Performed By: #### 5 7021-8 ####[facility] [id number] [place] [address] [place] Erythrocyte distribution width (RBC) [Ratio] 20.9 % High 11.5-15.0 [facility] Comment on above: Order Comment: Speci men Type: BLOOD SPECIMENOrdering Facility: [facility] Address: [address] [place] [address] Performed By: #### 5 7021-8 ####HIAL[facility] HOSPITALNCLI [id number] [place] [address] [place] Hematocrit (Bld) [Volume fraction] 32.0 % Low 39.0-51.0 [facility] Comment on above: Order Comment: Speci men Type: BLOOD SPECIMENOrdering Facility: [facility] Address: [address] [place] [address] Performed By: #### 5 7021-8 ####[facility] HOSPITALNCSALT [facility] [id number] [place] [address] [place] Hemoglobin (Bld) [Mass/Vol] 9.5 g/dL Low 13.0-17.0 [facility] Comment on above: Order Comment: Speci men Type: BLOOD SPECIMENOrdering Facility: [facility] Address: [address] [place] [address] Performed By: #### 5 7021-8 ####[facility] [id number] [place] [address] [place] Immature granulocytes (Bld) [#/Vol] 10*3/uL Normal <0.10 [facility] Comment on above: Order Comment: Speci men Type: BLOOD SPECIMENOrdering Facility: [facility] Address: [address] [place] [address] Performed By: #### 5 7021-8 ####[facility] [id number] [place] [address] [place] Immature granulocytes/100 WBC (Bld) 0.4 % Normal [facility] Comment on above: Order Comment: Speci men Type: BLOOD SPECIMENOrdering Facility: [facility] Address: [address] [place] [address] Performed By: #### 5 7021-8 ####[facility] [id number] [place] [address] [place] Lymphocytes (Bld) [#/Vol] 1.69 10*3/uL Normal 1.00-4.00 [facility] Comment on above: Order Comment: Speci men Type: BLOOD SPECIMENOrdering Facility: [facility] Address: [address] [place] [address] Performed By: #### 5 7021-8 ####[facility] BIENVENIDOPLYMOUTH MEETINGNCKATERINA [id number] [address] STATES [facility] Lymphocytes/100 WBC (Bld) 33.8 % Normal [facility] Comment on above: Order Comment: Speci men Type: BLOOD SPECIMENOrdering Facility: [facility] Address: [address] [place] [address] Performed By: #### 5 7021-8 ####HIALEAH HOSPITALNCKATERINA [id number] [place] [address] [place] MCH (RBC) [Entitic mass] 24.4 pg Low 26.0-34.0 [facility] Comment on above: Order Comment: Speci men Type: BLOOD SPECIMENOrdering Facility: [facility] Address: [address] [place] [address] Performed By: #### 5 7021-8 ####[facility] HOSPITALNCKATERINA [id number] [place] [address] [place] MCHC (RBC) [Mass/Vol] 29.7 g/dL Low 30.5-36.0 [facility] Comment on above: Order Comment: Speci men Type: BLOOD SPECIMENOrdering Facility: [facility] Address: [address] [place] [address] Performed By: #### 5 7021-8 ####[facility] HOSPITALNCLIA [id number] [place] [address] [place] MCV (RBC) [Entitic vol] 82.3 fL Normal 80.0-100.0 [facility] Comment on above: Order Comment: Speci men Type: BLOOD SPECIMENOrdering Facility: [facility] Address: [address] [place] [address] Performed By: #### 5 7021-8 ####[facility]PITALNCSALT [facility] [id number] [place] [address] [place] Monocytes (Bld) [#/Vol] 0.28 10*3/uL Normal <0.87 [facility] Comment on above: Order Comment: Speci men Type: BLOOD SPECIMENOrdering Facility: [facility] Address: [address] [place] [address] Performed By: #### 5 7021-8 ####[facility] [id number] [place] [address] [place] Monocytes/100 WBC (Bld) 5.6 % Normal [facility] Comment on above: Order Comment: Speci men Type: BLOOD SPECIMENOrdering Facility: [facility] Address: [address] [place] [address] Performed By: #### 5 7021-8 ####[facility] [id number] [place] [address] [place] Neutrophils (Bld) [#/Vol] 2.82 10*3/uL Normal 1.45-7.50 [facility] Comment on above: Order Comment: Speci men Type: BLOOD SPECIMENOrdering Facility: [facility] Address: [address] [place] [address] Performed By: #### 5 7021-8 ####[facility]ILLLIA [id number] [place] [address] [place] Neutrophils/100 WBC (Bld) 56.4 % Normal [facility] Comment on above: Order Comment: Speci men Type: BLOOD SPECIMENOrdering Facility: [facility] Address: [address] [place] [address] Performed By: #### 5 7021-8 ####[facility]LIA [id number] [place] [address] [place] Nucleated RBC (Bld) [#/Vol] 10*3/uL Normal <0.01 [facility] Comment on above: Order Comment: Speci men Type: BLOOD SPECIMENOrdering Facility: [facility] [facility] Address: [address] [place] [address] Performed By: #### 5 7021-8 ####[facility] HOSPITALNCMJ [id number] [place] [address] [place] Nucleated RBC/100 WBC (Bld) [Ratio] 0.0 /100 WBC Normal [facility] Comment on above: Order Comment: Speci men Type: BLOOD SPECIMENOrdering Facility: [facility] Address: [address] [place] [address] Performed By: #### 5 7021-8 ####[facility] HOSPITALNCLIA [id number] [place] [address] [place] Platelet mean volume (Bld) [Entitic vol] 8.3 fL Low 9.0-12.7 [facility] Comment on above: Order Comment: Speci men Type: BLOOD SPECIMENOrdering Facility: [facility] Address: [address] [place] [address] Performed By: #### 5 7021-8 ####[facility] HOSPITALNCLIA [id number] [place] [address] [place] Platelets (Bld) [#/Vol] 181 10*3/uL Normal 150-400 [facility] Comment on above: Order Comment: Speci men Type: BLOOD SPECIMENOrdering Facility: [facility] Address: [address] [place] [address] Performed By: #### 5 7021-8 ####[facility] HOSPITALNCLIA [id number] [place] [address] [place] RBC (Bld) [#/Vol] 3.89 10*6/uL Low 4.20-6.00 [facility] Comment on above: Order Comment: Speci men Type: BLOOD SPECIMENOrdering Facility: [facility] Address: [address] [place] [address] Performed By: #### 5 7021-8 ####HIALEAH HOSPITALNCKATERINA [id number] [place] [address] [place] WBC (Bld) [#/Vol] 5.00 10*3/uL Normal 3.70-11.00 [facility] Comment on above: Order Comment: Speci men Type: BLOOD SPECIMENOrdering Facility: [facility] Address: [address] [place] [address] Performed By: #### 5 7021-8 ####[facility] HOSPITALNCLIA [id number] [place] [address] [place] PSA SerPl-mCncon 04-14-2024 Prostate specific Ag [Mass/Vol] ng/mL Normal <2.60 [facility] Comment on above: Order Comment: Speci men Type: BLOOD SPECIMENOrdering Facility: [facility] Address: [address] [place] [address] Result Comment: Tota l PSA test methodology used is the Electrochemiluminescence Immunoassay by [employer]. Total PSA values by differing methodologies cannot be interchanged. Performed By: #### 2 857-1 ####[facility] LABCLIA [id number] [place] [address] [place] CNPNon 04-05-2024 CNPN Normal [facility] CNTHERAPYon 04-01-2024 CNTHERAPY OT/PT/Speech Visit ([facility]) -- LUTHER CASTILLO ([id number]) 1955 Tracee Date Time Provider Department 04/01/24 2:15 PM ENDY CURRAN [facility] Date Time Provider Department Center 04/01/2024 2:15 PM [id number], CYNTHIA*[facility] M Reason for Visit: Physical Therapy [503] [...] in the MR contrast administration guidelines link. [facility] [id number] 03-24-2024 [id number] HNO ID: [id number] Author: ENDY CURRAN PT Service: ? Author Type: Physical Therapist Type: [id number] Filed: 03/24/2024 17:11 Note Text: [facility] Physical Therapy Plan of Care Certification Patient Name: Luther Castillo : 1955 [facility] #: [id number] Date: 03/24/2024 To: Catherine Peraza APRN, PROGRAMMER BUSINESS From Therapist: Endy Curran PT, DERRICK RE: [...] [place] [employer] [facility] [employer]) Patient Goals: To decrease lower back and L hip pain (Improving) Time Frame for Goals and Treatment : 05/07/24 Planned Interventions, Frequency, and Duration: 2x/week, 5 weeks Total Number of Visits Planned: 10 Patient to be seen for Therapeutic exercise (24953), Manual therapy (89981), Therapeutic activities (22537), Self-mcfp management (48776), Patient/Family/Caregiver Education, Body Mechanics Training PLAN FOR NEXT VISIT: Continue to progress LE strengthening with increasing repetitions as pt tolerates. For further details regarding this patient refer to the Physical Therapy electronically documented visit dated 03/24/2024. Provider Attestation I have reviewed the treatment plan for Luther Castillo, [facility]# [id number] for the period of 03/24/24 -- 05/07/24, established on 03/24/2024. Signature certifies the need for therapy services. [facility] CNTHERAPYon 03-24-2024 CNTHERAPY OT/PT/Speech Visit ([facility]) -- LUTHER CASTILLO ([id number]) 1955 M Date Time Provider Department 03/24/24 2:15 PM ENDY CURRAN [facility] Date Time Provider Department Center 03/24/2024 2:15 PM [id number], CYNTHIA*[facility] M Reason for Visit: PT Progress Note [4766] Primary Visit Diagnosis:Left hip pain [M25.552] Other [...] the MR contrast administration guidelines link. Normal [facility] CNOVon 03-19-2024 CNOV Normal [facility] Basic metabolic 2000 panelon 03-17-2024 Anion gap [Moles/Vol] 9 mmol/L Normal 8-15 [facility] Comment on above: Order Comment: Speci men Type: BLOOD SPECIMENOrdering Facility: [facility] Address: [address] [place] [address] Performed By: #### 2 4321-2 ####[facility] MILLTOWNCLIA [id number] [place] [address] [place] Calcium [Mass/Vol] 9.2 mg/dL Normal 8.5-10.2 [facility] Comment on above: Order Comment: Speci men Type: BLOOD SPECIMENOrdering Facility: [facility] Address: [address] [place] [address] Performed By: #### 2 4321-2 ####[facility] MILLTOWNYLIA [id number] [place] [address] [place] Chloride [Moles/Vol] 103 mmol/L Normal 98-107 [facility] Comment on above: Order Comment: Speci men Type: BLOOD SPECIMENOrdering Facility: [facility] Address: [address] [place] [address] Performed By: #### 2 4321-2 ####[facility] NIKOLE MILLTOWNCLIA [id number] [place] [address] [place] CO2 [Moles/Vol] 27 mmol/L Normal 22-30 [facility] Comment on above: Order Comment: Speci men Type: BLOOD SPECIMENOrdering Facility: [facility] Address: [address] [place] [address] Performed By: #### 2 4321-2 ####[facility] NIKOLE MILLTOWNCLIA [id number] [place] [address] [place] Creatinine [Mass/Vol] 1.00 mg/dL Normal 0.73-1.22 [facility] Comment on above: Order Comment: Bassam hong Type: BLOOD SPECIMENOrdering Facility: [facility] Address: [address] [place] [address] Performed By: #### 2 4321-2 ####[facility] [id number] [address] OF [facility] Creatinine and Glomerular filtration rate.predicted panel (S/P/Bld) 81 mL/min/1.73m??? Normal >=60 [facility] Comment on above: Order Comment: Bassam hong Type: BLOOD SPECIMENOrdering Facility: [facility] Address: [address] [place] [address] Result Comment: Beth mated Glomerular Filtration Rate [...] actual GFR. Performed By: #### 2 4321-2 ####[facility] [id number] [place] [address] [place] Glucose [Mass/Vol] 94 mg/dL Normal 74-99 [facility] Comment on above: Order Comment: Bassam hong Type: BLOOD SPECIMENOrdering Facility: [facility] Address: [address] [place] [address] Result Comment: The [place] [employer] (ADA) provides guidance for cutoff [...] Standards of Medical Care in Diabetes 2016, [place] [employer]. Diabetes Care. 2016.39(Suppl 1). Performed By: #### 2 4321-2 ####[facility] [id number] [place] [address] [place] Potassium [Moles/Vol] 4.0 mmol/L Normal 3.7-5.1 [facility] Comment on above: Order Comment: Speci men Type: BLOOD SPECIMENOrdering Facility: [facility] Address: [address] [place] [address] Performed By: #### 2 4321-2 ####[facility] [id number] [place] [address] [place] Sodium [Moles/Vol] 139 mmol/L Normal 136-144 [facility] Comment on above: Order Comment: Speci men Type: BLOOD SPECIMENOrdering Facility: [facility] Address: [address] [place] [address] Performed By: #### 2 4321-2 ####[facility] [id number] [place] [address] [place] Urea nitrogen [Mass/Vol] 19 mg/dL Normal 9-24 [facility] Comment on above: Order Comment: Speci men Type: BLOOD SPECIMENOrdering Facility: [facility] Address: [address] [place] [address] Performed By: #### 2 4321-2 ####[facility] [id number] [place] [address] [place] CBC W Auto Differential pane l (Bld)on 03-17-2024 Basophils (Bld) [#/Vol] 10*3/uL Normal <0.11 [facility] Comment on above: Order Comment: Speci men Type: BLOOD SPECIMENOrdering Facility: [facility] Address: [address] [place] [address] Performed By: #### 5 7021-8 ####[facility] MILLWNCLIA [id number] [place] [address] [place] Basophils/100 WBC (Bld) 0.2 % Normal [facility] Comment on above: Order Comment: Speci men Type: BLOOD SPECIMENOrdering Facility: [facility] Address: [address] [place] [address] Performed By: #### 5 7021-8 ####[facility]FAIRHILLLIA [id number] [place] [address] [place] Differential cell count method Nom (Bld) Auto Normal [facility] Comment on above: Order Comment: Speci men Type: BLOOD SPECIMENOrdering Facility: [facility] Address: [address] [place] [address] Performed By: #### 5 7021-8 ####[facility] H[facility]PITALWNCLIA [id number] [place] [address] [place] Eosinophils (Bld) [#/Vol] 0.25 10*3/uL Normal <0.46 [facility] Comment on above: Order Comment: Speci men Type: BLOOD SPECIMENOrdering Facility: [facility] Address: [address] [place] [address] Performed By: #### 5 7021-8 ####[facility] MILLTOWNCLIA [id number] [place] [address] [place] Eosinophils/100 WBC (Bld) 4.3 % Normal [facility] Comment on above: Order Comment: Speci men Type: BLOOD SPECIMENOrdering Facility: [facility] Address: [address] [place] [address] Performed By: #### 5 7021-8 ####[facility] MILLWNCLIA [id number] [place] [address] [place] Erythrocyte distribution width (RBC) [Ratio] 20.0 % High 11.5-15.0 [facility] Comment on above: Order Comment: Speci men Type: BLOOD SPECIMENOrdering Facility: [facility] Address: [address] [place] [address] Performed By: #### 5 7021-8 ####[facility]IAL[facility] HOSPITALCINDY [id number] [place] [address] [place] Hematocrit (Bld) [Volume fraction] 33.0 % Low 39.0-51.0 [facility] Comment on above: Order Comment: Speci men Type: BLOOD SPECIMENOrdering Facility: [facility] Address: [address] [place] [address] Performed By: #### 5 7021-8 ####[facility] HOSPITALNCMJ [id number] [place] [address] [place] Hemoglobin (Bld) [Mass/Vol] 9.9 g/dL Low 13.0-17.0 [facility] Comment on above: Order Comment: Speci men Type: BLOOD SPECIMENOrdering Facility: [facility] Address: [address] [place] [address] Performed By: #### 5 7021-8 ####[facility]IAL[facility] HOSPITALCINDY [id number] [place] [address] [place] Immature granulocytes (Bld) [#/Vol] 10*3/uL Normal <0.10 [facility] Comment on above: Order Comment: Speci men Type: BLOOD SPECIMENOrdering Facility: [facility] Address: [address] [place] [address] Performed By: #### 5 7021-8 ####[facility] HOSPITALNCLIA [id number] [place] [address] [place] Immature granulocytes/100 WBC (Bld) 0.2 % Normal [facility] Comment on above: Order Comment: Speci men Type: BLOOD SPECIMENOrdering Facility: [facility] Address: [address] [place] [address] Performed By: #### 5 7021-8 ####[facility] BIENVENIDOPLYMOUTH MEETINGNCMJ [id number] [place] [address] [place] Lymphocytes (Bld) [#/Vol] 2.61 10*3/uL Normal 1.00-4.00 [facility] Comment on above: Order Comment: Speci men Type: BLOOD SPECIMENOrdering Facility: [facility] Address: [address] [place] [address] Performed By: #### 5 7021-8 ####[facility] HOSPITALNCSALT [facility] [id number] [place] [address] [place] Lymphocytes/100 WBC (Bld) 45.1 % Normal [facility] Comment on above: Order Comment: Speci men Type: BLOOD SPECIMENOrdering Facility: [facility] Address: [address] [place] [address] Performed By: #### 5 7021-8 ####[facility] [id number] [place] [address] [place] MCH (RBC) [Entitic mass] 24.6 pg Low 26.0-34.0 [facility] Comment on above: Order Comment: Speci men Type: BLOOD SPECIMENOrdering Facility: [facility] Address: [address] [place] [address] Performed By: #### 5 7021-8 ####HIAL[facility]AH HOSPITALNCA [id number] [place] [address] [place] MCHC (RBC) [Mass/Vol] 30.0 g/dL Low 30.5-36.0 [facility] Comment on above: Order Comment: Speci men Type: BLOOD SPECIMENOrdering Facility: [facility] Address: [address] [place], [place] [address] Performed By: #### 5 7021-8 ####[facility] HOSPITALNCLIA [id number] [place] [address] [place] MCV (RBC) [Entitic vol] 81.9 fL Normal 80.0-100.0 [facility] Comment on above: Order Comment: Speci men Type: BLOOD SPECIMENOrdering Facility: [facility] Address: [address] [place] [address] Performed By: #### 5 7021-8 ####[facility] HOSPITALNCLIA [id number] [place] [address] [place] Monocytes (Bld) [#/Vol] 0.41 10*3/uL Normal <0.87 [facility] Comment on above: Order Comment: Speci men Type: BLOOD SPECIMENOrdering Facility: [facility] Address: [address] [place] [address] Performed By: #### 5 7021-8 ####[facility] HOSPITALNCLIA [id number] [place] [address] [place] Monocytes/100 WBC (Bld) 7.1 % Normal [facility] Comment on above: Order Comment: Speci men Type: BLOOD SPECIMENOrdering Facility: [facility] Address: [address] [place] [address] Performed By: #### 5 7021-8 ####[facility]FAIRHILLLIA [id number] [place] [address] [place] Neutrophils (Bld) [#/Vol] 2.50 10*3/uL Normal 1.45-7.50 [facility] Comment on above: Order Comment: Speci men Type: BLOOD SPECIMENOrdering Facility: [facility] Address: [address] [place] [address] Performed By: #### 5 7021-8 ####[facility] [id number] [place] [address] [place] Neutrophils/100 WBC (Bld) 43.1 % Normal [facility] Comment on above: Order Comment: Speci men Type: BLOOD SPECIMENOrdering Facility: [facility] Address: [address] [place] [address] Performed By: #### 5 7021-8 ####[facility] HOSPITALCINDY [id number] [place] [address] [place] Nucleated RBC (Bld) [#/Vol] 10*3/uL Normal <0.01 [facility] Comment on above: Order Comment: Speci men Type: BLOOD SPECIMENOrdering Facility: [facility] Address: [address] [place] [address] Performed By: #### 5 7021-8 ####[facility] HOSPITALCINDY [id number] [place] [address] [place] Nucleated RBC/100 WBC (Bld) [Ratio] 0.0 /100 WBC Normal [facility] Comment on above: Order Comment: Speci men Type: BLOOD SPECIMENOrdering Facility: [facility] Address: [address] [place] [address] Performed By: #### 5 7021-8 ####[facility] HOSPITALCINDY [id number] [place] [address] [place] Platelet mean volume (Bld) [Entitic vol] 8.5 fL Low 9.0-12.7 [facility] Comment on above: Order Comment: Speci men Type: BLOOD SPECIMENOrdering Facility: [facility] Address: [address] [place] [address] Performed By: #### 5 7021-8 ####[facility] HOSPITALNCLIA [id number] [place] [address] [place] Platelets (Bld) [#/Vol] 200 10*3/uL Normal 150-400 [facility] Comment on above: Order Comment: Speci men Type: BLOOD SPECIMENOrdering Facility: [facility] Address: [address] [place] [address] Performed By: #### 5 7021-8 ####[facility] HOSPITALNCLIA [id number] [place] [address] [place] RBC (Bld) [#/Vol] 4.03 10*6/uL Low 4.20-6.00 [facility] Comment on above: Order Comment: Speci men Type: BLOOD SPECIMENOrdering Facility: [facility] Address: [address] [place] [address] Performed By: #### 5 7021-8 ####[facility] HOSPITALNCLIA [id number] [place] [address] [place] WBC (Bld) [#/Vol] 5.79 10*3/uL Normal 3.70-11.00 [facility] Comment on above: Order Comment: Speci men Type: BLOOD SPECIMENOrdering Facility: [facility] Address: [address] [place] [address] Performed By: #### 5 7021-8 ####[facility] HOSPITALNCLIA [id number] [place] [address] [place] PSA SerPl-mCncon 03-17-2024 Prostate specific Ag [Mass/Vol] ng/mL Normal <2.60 [facility] Comment on above: Order Comment: Speci men Type: BLOOD SPECIMENOrdering Facility: [facility] Address: [address] [place] [address] Result Comment: Tota l PSA test methodology used is the Electrochemiluminescence Immunoassay by [employer]. Total PSA values by differing methodologies cannot be interchanged. Performed By: #### 2 857-1 ####[facility] LABCLIA [id number] [place] [address] [place] CNTHERAPYon 03-16-2024 CNTHERAPY OT/PT/Speech Visit ([facility]) -- LUTHER CASTILLO ([id number]) 1955 M Date Time Provider Department 03/16/24 2:00 PM JULIANO MAGAÑA [facility] Date Time Provider Department [place] 03/16/2024 2:00 PM [id number], [facility] Reason for Visit: Physical Therapy [503] Primary [...] in the MR contrast administration guidelines link. [facility] CNOVon 03-10-2024 CNOV Normal [facility] CNTHERAPYon 03-09-2024 CNTHERAPY OT/PT/Speech Visit ([facility]) -- LUTHER CASTILLO ([id number]) 1955 M Date Time Provider Department 03/09/24 2:45 PM JOSE DAVID CEDENO [facility] Date Time Provider Department Center 03/09/2024 2:45 PM [id number], SHEILA*[facility] Reason for Visit: Physical Therapy [503] [...] in the MR contrast administration guidelines link. [facility] CNTHERAPYon 03-02-2024 CNTHERAPY OT/PT/Speech Visit ([facility]) -- LUTHER CASTILLO ([id number]) 1955 M Date Time Provider Department 03/02/24 2:45 PM [facility] Provider Department Center 03/02/2024 2:45 PM [id number], [facility] M Reason for Visit: Physical Therapy [...] in the MR contrast administration guidelines link. [facility] CNTHERAPY OT/PT/Speech Visit ([facility]) -- LUTHER CASTILLO ([id number]) 1955 M Date Time Provider Department 02/27/24 11:45 AM ROSEANNA HUGHES [facility] Date Time Provider Department Center 02/27/2024 11:45 AM [id number], AMBER M [facility] M Reason for Visit: Physical Therapy [503] [...] in the MR contrast administration guidelines link. [facility] CNPNon 02-25-2024 CNPN [facility] CNTHERAPYon 02-25-2024 CNTHERAPY OT/PT/Speech Visit ([facility]) -- LUTHER CASTILLO ([id number]) 1955 M Date Time Provider Department 02/25/24 11:00 AM ENDY CURRAN [facility] Date Time Provider Department Center 02/25/2024 11:00 AM [id number], CYNTHIA*[facility] Reason for Visit: PT Progress Note [1086] Primary Visit Diagnosis:Left hip pain [M25.552] Other [...] administration guidelines link. Letter Text Letter Text [facility] CNOVon 02-23-2024 CNOV Normal [facility] CNTHERAPYon 02-20-2024 CNTHERAPY OT/PT/Speech Visit ([facility]) -- LUTHER CASTILLO ([id number]) 1955 M Date Time Provider Department 02/20/24 11:45 AM JOSE DAVID CEDENO [facility] Date Time Provider Department Center 02/20/2024 11:45 AM [id number], SHEILA*[facility] M Reason for Visit: Physical Therapy [503] [...] the MR contrast administration guidelines link. Normal [facility] Basic metabolic 2000 panelon 02-18-2024 Anion gap [Moles/Vol] 9 mmol/L Normal 8-15 [facility] Comment on above: Order Comment: Speci men Type: BLOOD SPECIMENOrdering Facility: [facility] Address: [address] [place] [address] Performed By: #### 2 4321-2 ####[facility] MILLTOWNCLIA [id number] [place] [address] [place] Calcium [Mass/Vol] 9.2 mg/dL Normal 8.5-10.2 [facility] Comment on above: Order Comment: Speci men Type: BLOOD SPECIMENOrdering Facility: [facility] Address: [address] [place] [address] Performed By: #### 2 4321-2 ####[facility] MILLTOWNCLIA [id number] [place] [address] [place] Chloride [Moles/Vol] 105 mmol/L Normal 98-107 [facility] Comment on above: Order Comment: Speci men Type: BLOOD SPECIMENOrdering Facility: [facility] Address: [address] [place] [address] Performed By: #### 2 4321-2 ####[facility] MILLTOWNCLIA [id number] [place] [address] [place] CO2 [Moles/Vol] 25 mmol/L Normal 22-30 [facility] Comment on above: Order Comment: Speci men Type: BLOOD SPECIMENOrdering Facility: [facility] Address: [address] [place], [place] [address] Performed By: #### 2 4321-2 ####[facility] MILLTOWNCLIA [id number] [place] [address] [place] Creatinine [Mass/Vol] 0.90 mg/dL Normal 0.73-1.22 [facility] Comment on above: Order Comment: Bassam hong Type: BLOOD SPECIMENOrdering Facility: [facility] Address: [address] [place] [address] Performed By: #### 2 4321-2 ####[facility] [id number] [place] [address] [facility] [place] Creatinine and Glomerular filtration rate.predicted panel (S/P/Bld) 92 mL/min/1.73m??? Normal >=60 [facility] Comment on above: Order Comment: Bassam hong Type: BLOOD SPECIMENOrdering Facility: [facility] Address: [address] [place] [address] Result Comment: Beth mated Glomerular Filtration Rate [...] actual GFR. Performed By: #### 2 4321-2 ####[facility] [id number] [place] [address] [place] Glucose [Mass/Vol] 189 mg/dL High 74-99 [facility] Comment on above: Order Comment: Bassam hong Type: BLOOD SPECIMENOrdering Facility: [facility] Address: [address] [place] [address] Result Comment: The [place] Diabetes Association (ADA) provides guidance for cutoff [...] Standards of Medical Care in Diabetes 2016, [place] [employer] Association. Diabetes Care. 2016.39(Suppl 1). Performed By: #### 2 4321-2 ####[facility] [id number] [place] [address] [place] Potassium [Moles/Vol] 3.7 mmol/L Normal 3.7-5.1 [facility] Comment on above: Order Comment: Speci men Type: BLOOD SPECIMENOrdering Facility: [facility] Address: [address] [place] [address] Performed By: #### 2 4321-2 ####[facility] [id number] [place] [address] [place] Sodium [Moles/Vol] 139 mmol/L Normal 136-144 [facility] Comment on above: Order Comment: Jose Manueli hal Type: BLOOD SPECIMENOrdering Facility: [facility] Address: [address] [place] [address] Performed By: #### 2 4321-2 ####[facility] [id number] [place] [address] [place] Urea nitrogen [Mass/Vol] 25 mg/dL High 9-24 [facility] Comment on above: Order Comment: Jose Manueli men Type: BLOOD SPECIMENOrdering Facility: [facility] Address: [address] [place] [address] Performed By: #### 2 4321-2 ####[facility] [id number] [place] [address] [place] CBC W Auto Differential pane l (Bld)on 02-18-2024 Basophils (Bld) [#/Vol] 10*3/uL Normal <0.11 [facility] Comment on above: Order Comment: Speci men Type: BLOOD SPECIMENOrdering Facility: [facility] Address: [address] [place] [address] Performed By: #### 5 7021-8 ####[facility]ENVENIDOWNCL[facility] [id number] [place] [address] [place] Basophils/100 WBC (Bld) 0.2 % Normal [facility] Comment on above: Order Comment: Speci men Type: BLOOD SPECIMENOrdering Facility: [facility] Address: [address] [place] [address] Performed By: #### 5 7021-8 ####[facility] [id number] [place] [address] [place] Differential cell count method Nom (Bld) Auto Normal [facility] Comment on above: Order Comment: Speci men Type: BLOOD SPECIMENOrdering Facility: [facility] Address: [address] [place] [address] Performed By: #### 5 7021-8 ####[facility] [id number] [place] [address] [place] Eosinophils (Bld) [#/Vol] 0.18 10*3/uL Normal <0.46 [facility] Comment on above: Order Comment: Speci men Type: BLOOD SPECIMENOrdering Facility: [facility] Address: [address] [place] [address] Performed By: #### 5 7021-8 ####[facility] [id number] [place] [address] [place] Eosinophils/100 WBC (Bld) 2.9 % Normal [facility] Comment on above: Order Comment: Speci men Type: BLOOD SPECIMENOrdering Facility: [facility] Address: [address] [place] [address] Performed By: #### 5 7021-8 ####[facility] [id number] [place] [address] [place] Erythrocyte distribution width (RBC) [Ratio] 20.1 % High 11.5-15.0 [facility] Comment on above: Order Comment: Speci men Type: BLOOD SPECIMENOrdering Facility: [facility] Address: [address] [place] [address] Performed By: #### 5 7021-8 ####[facility] [id number] [place] [address] [place] Hematocrit (Bld) [Volume fraction] 29.1 % Low 39.0-51.0 [facility] Comment on above: Order Comment: Speci men Type: BLOOD SPECIMENOrdering Facility: [facility] Address: [address] [place] [address] Performed By: #### 5 7021-8 ####[facility] [id number] [place] [address] [place] Hemoglobin (Bld) [Mass/Vol] 8.9 g/dL Low 13.0-17.0 [facility] Comment on above: Order Comment: Speci men Type: BLOOD SPECIMENOrdering Facility: [facility] Address: [address] [place] [address] Performed By: #### 5 7021-8 ####[facility] [id number] [place] [address] [place] Immature granulocytes (Bld) [#/Vol] 0.03 10*3/uL Normal <0.10 [facility] Comment on above: Order Comment: Speci men Type: BLOOD SPECIMENOrdering Facility: [facility] Address: [address] [place] [address] Performed By: #### 5 7021-8 ####[facility] [id number] [place] [address] [place] Immature granulocytes/100 WBC (Bld) 0.5 % Normal [facility] Comment on above: Order Comment: Speci men Type: BLOOD SPECIMENOrdering Facility: [facility] Address: [address] [place] [address] Performed By: #### 5 7021-8 ####[facility] BIENVENIDOESTHER [id number] [place] [address] [place] Lymphocytes (Bld) [#/Vol] 1.81 10*3/uL Normal 1.00-4.00 [facility] Comment on above: Order Comment: Speci men Type: BLOOD SPECIMENOrdering Facility: [facility] Address: [address] [place] [address] Performed By: #### 5 7021-8 ####[facility]PITALANGELICAA [id number] [place] [address] [place] Lymphocytes/100 WBC (Bld) 29.4 % Normal [facility] Comment on above: Order Comment: Speci men Type: BLOOD SPECIMENOrdering Facility: [facility] Address: [address] [place] [address] Performed By: #### 5 7021-8 ####[facility] [id number] [place] [address] [place] MCH (RBC) [Entitic mass] 24.9 pg Low 26.0-34.0 [facility] Comment on above: Order Comment: Speci men Type: BLOOD SPECIMENOrdering Facility: [facility] Address: [address] [place] [address] Performed By: #### 5 7021-8 ####[facility]ITALNCLIA [id number] [place] [address] [place] MCHC (RBC) [Mass/Vol] 30.6 g/dL Normal 30.5-36.0 [facility] Comment on above: Order Comment: Speci men Type: BLOOD SPECIMENOrdering Facility: [facility] Address: [address] [place] [address] Performed By: #### 5 7021-8 ####[facility] MILLWNCLIA [id number] [place] [address] [place] MCV (RBC) [Entitic vol] 81.3 fL Normal 80.0-100.0 [facility] Comment on above: Order Comment: Speci men Type: BLOOD SPECIMENOrdering Facility: [facility] Address: [address] [place] [address] Performed By: #### 5 7021-8 ####[facility] [id number] [place] [address] [place] Monocytes (Bld) [#/Vol] 0.33 10*3/uL Normal <0.87 [facility] Comment on above: Order Comment: Speci men Type: BLOOD SPECIMENOrdering Facility: [facility] Address: [address] [place] [address] Performed By: #### 5 7021-8 ####[facility] [id number] [place] [address] [place] Monocytes/100 WBC (Bld) 5.4 % Normal [facility] Comment on above: Order Comment: Speci men Type: BLOOD SPECIMENOrdering Facility: [facility] Address: [address] [place] [address] Performed By: #### 5 7021-8 ####[facility]PITALANGELICALIA [id number] [place] [address] [place] Neutrophils (Bld) [#/Vol] 3.79 10*3/uL Normal 1.45-7.50 [facility] Comment on above: Order Comment: Speci men Type: BLOOD SPECIMENOrdering Facility: [facility] Address: [address] [place] [address] Performed By: #### 5 7021-8 ####[facility] [id number] [place] [id number] [place] Neutrophils/100 WBC (Bld) 61.6 % Normal [facility] Comment on above: Order Comment: Speci men Type: BLOOD SPECIMENOrdering Facility: [facility] Address: [address] [place] [address] Performed By: #### 5 7021-8 ####[facility] [id number] [place] [address] [place] Nucleated RBC (Bld) [#/Vol] 10*3/uL Normal <0.01 [facility] Comment on above: Order Comment: Speci men Type: BLOOD SPECIMENOrdering Facility: [facility] Address: [address] [place] [address] Performed By: #### 5 7021-8 ####[facility] [id number] [place] [address] [place] Nucleated RBC/100 WBC (Bld) [Ratio] 0.0 /100 WBC Normal [facility] Comment on above: Order Comment: Speci men Type: BLOOD SPECIMENOrdering Facility: [facility] Address: [address] [place] [address] Performed By: #### 5 7021-8 ####[facility] HOSPITALNCLI [id number] [place] [address] [place] Platelet mean volume (Bld) [Entitic vol] 8.3 fL Low 9.0-12.7 [facility] Comment on above: Order Comment: Speci men Type: BLOOD SPECIMENOrdering Facility: [facility] Address: [address] [place] [address] Performed By: #### 5 7021-8 ####[facility] [id number] [place] [address] [place] Platelets (Bld) [#/Vol] 191 10*3/uL Normal 150-400 [facility] Comment on above: Order Comment: Speci men Type: BLOOD SPECIMENOrdering Facility: [facility] Address: [address] [place] [address] Performed By: #### 5 7021-8 ####[facility]ITALNCLIA [id number] [place] [address] [place] RBC (Bld) [#/Vol] 3.58 10*6/uL Low 4.20-6.00 [facility] Comment on above: Order Comment: Speci men Type: BLOOD SPECIMENOrdering Facility: [facility] Address: [address] [place] [address] Performed By: #### 5 7021-8 ####[facility]ITALNCLIA [id number] [place] [address] [place] WBC (Bld) [#/Vol] 6.15 10*3/uL Normal 3.70-11.00 [facility] Comment on above: Order Comment: Speci men Type: BLOOD SPECIMENOrdering Facility: [facility] Address: [address] [place] [address] Performed By: #### 5 7021-8 ####[facility]PITALNCLIA [id number] [place] [address] [place] CNTHERAPYon 02-18-2024 CNTHERAPY OT/PT/Speech Visit ([facility]) -- LUTHER CASTILLO ([id number]) 1955 Tracee Date Time Provider Department 02/18/24 1:15 PM ROSEANNA HUGHES [facility] Date Time Provider Department Center 02/18/2024 1:15 PM [id number], AMBER M [facility] M Reason for Visit: Physical Therapy [503] [...] in the MR contrast administration guidelines link. [facility] CBC W/Diff, Automatedon 11-4 Anisocytosis Ql (Bld) 1+ [facility] Comment on above: Performed By: #### L 100.0100 #### [facility] [address] [place], [address] Surgery Visit Reporton 02-15 Surgery Visit Report [facility] [address] [place] [address] OFFICE VISIT Date of Service: 02/16/24 MR#: [id number] Acct: [id number] Name: LUTHER CASTILLO II Rep #: [id number] : 1955 Provider: JENNY march Age/Sex: 68/M Location: [facility] Status: Signed Intake Vital Signs 02/05/24 18:37 [...] Op Diagnoses Status post laparoscopic appendectomy Z90.49 [facility] Social History Smoking Status: Never smoker Assessment [...] López Ocampo MD; Dr. Rohit Crawford MD [facility] CNTHERAPYon 02-13-2024 CNTHERAPY OT/PT/Speech Visit ([facility]) -- LUTHER CASTILLO ([id number]) 1955 M Date Time Provider Department 02/13/24 11:45 AM ROSEANNA HUGHES [facility] Date Time Provider Department [place] 02/13/2024 11:45 AM [id number], AMBER M [facility] Reason for Visit: Physical Therapy [503] [...] in the MR contrast administration guidelines link. [facility] CNTHERAPYon 02-11-2024 CNTHERAPY OT/PT/Speech Visit ([facility]) -- LUTHER CASTILLO ([id number]) 1955 M Date Time Provider Department 02/11/24 11:00 AM ROSEANNA HUGHES [facility] Date Time Provider Department Center 02/11/2024 11:00 AM [id number], AMBER M [facility] M Reason for Visit: Physical Therapy [503] [...] in the MR contrast administration guidelines link. [employer]: Therapy (PT/OT/Speech/Resp) ID: [id number] 02/11/2024 11:40 AM Author: ROSEANNA HUGHES Signed by ROSEANNA HUGHES LAB REP on 02/11/2024 at 11:40 AM Document text: Program_ID:[id number] Access Code: [email or web address] URL: [email or web address] Date: 02-11-2024 Prepared By: ENDY CURRAN Program [...] weekly - 3 sets - 10 reps [facility] Culture, Anaerobic Any Sourc binh 02-11-2024 CUAN Collected in OR - Peritoneal Fluid Studies Have Confirmed That B. Fragilis Group are Routinely Susceptible to: Metronidazole, Piperacillin/Tazobactam, Amoxicillin/Clavulanic acid, and Ertapenem. They are showing an increased RESISTANCE to Penicillin, Clindamycin and Moxifloxacin. Bacteroides thetaiotaomicron Bacteroides caccae [facility] Comment on above: Performed By: #### B TS, L300.4310, L300.3900 #### [facility] [address] [place], [place], [id number] THERAPY NTon 02-11-2024 THERAPY NT HNO ID: [id number] Author: ROSEANNA HUGHES PTA Service: ? Author Type: Drafter [employer] Type: Therapy (PT/OT/Speech/Resp) Filed: 02/11/2024 11:40 Note Text: Program_ID:[id number] Access Code: [email or web address] URL: [email or web address] Date: 02-11-2024 Prepared By: ENDY CURRAN Program [...] - 3 sets - 10 reps Normal [facility] CBC W/Diff, Automatedon 11-0 PATH REV Reviewed [facility] Comment on above: Result Comment: Norm ocytic anemia. MILD Thrombocytopenia. Clinical correlation necessary. Toy Cerrato M.D. 02/09/24 AMENDED REPORT 02/09/24 1420 PATH REV previously reported as: August gallo Performed By: #### B TS, L300.4310, L300.3900 #### [facility] [address] [place], [place], [address] Wound Cultureon 02-08-2024 WC Collected in OR - Peritoneal Fluid Raoultella planticola Amount Growth 1+ Raoultella planticola: REACTION Ampicillin Islt DAILY Ampicillin+Sulbac Islt DAILY <=2 S ceFAZolin Islt DAILY <=4 S Ciprofloxacin Islt DAILY <=0.25 S Gentamicin Islt DAILY <=1 S levoFLOXacin Islt DAILY <=0.12 S Tobramycin Islt DAILY <=1 S TMP SMX Islt DAILY <=20 S [facility] Comment on above: Performed By: #### B TS, L300.4310, L300.3900 #### [facility] [address] [place], [address] Basic Metabolic Profile (BMP )on 02-06-2024 BUN/CRE 22.5 RATIO High 10-20 [facility] Comment on above: Performed By: #### L 500.2500 #### [facility] [address] [place], [address] CA,Total 7.5 mg/dL Low 8.5-10.1 [facility] Comment on above: Performed By: #### L 500.2500 #### [facility] [address] [place], [address] Chloride [Moles/Vol] 110 mmol/L High 98-107 [facility] Comment on above: Performed By: #### L 500.2500 #### [facility] [address] [place], [address] CO2 [Moles/Vol] 23.0 mmol/L Normal 21.0-32.0 [facility] Comment on above: Performed By: #### L 500.2500 #### [facility] [address] [place], [address] Creatinine [Mass/Vol] 0.93 mg/dL Normal 0.70-1.30 [facility] Comment on above: Result Comment: The validity of the calculated GFR GFRAA in patients over 70 years has not been determined. Clinical correlation is essential. Performed By: #### L 500.2500 #### [facility] [address] [place], [address] ECRCL 70.67 ml/min [facility] Comment on above: Performed By: #### L 500.2500 #### [facility] [address] [place], [address] EST GFR - AA 103 mL/min Normal >60 [facility] Comment on above: Result Comment: Afri can [place] GFR Calc Performed By: #### L 500.2500 #### [facility] [address] [place], [address] GAP 6 Normal 5-15 [facility] Comment on above: Performed By: #### L 500.2500 #### [facility] [address] [place], [address] GFR/1.73 sq M.predicted among non-blacks MDRD (S/P/Bld) [Vol rate/Area] 85 mL/min/{1.73_m2} Normal >60 [facility] Comment on above: Result Comment: Non- GFR Calc Performed By: #### L 500.2500 #### [facility] [address] [place], [address] Glucose [Mass/Vol] 159 mg/dL High 74-106 [facility] Comment on above: Result Comment: Fast ing Glucose result greater than or equal to 126 mg/dL suggests DIABETES MELLITUS per A.D.A. criteria. Performed By: #### L 500.2500 #### [facility] [address] [place], [address] Potassium [Moles/Vol] 4.0 mmol/L Normal 3.5-5.1 [facility] Comment on above: Performed By: #### L 500.2500 #### [facility] [address] [place], [address] Sodium [Moles/Vol] 138 mmol/L Normal 136-145 [facility] Comment on above: Performed By: #### L 500.2500 #### [facility] [address] [place], [address] Urea nitrogen [Mass/Vol] 21 mg/dL High 7-18 [facility] Comment on above: Performed By: #### L 500.2500 #### [facility] [address] [place], [address] Discharge Instructionon 110 Discharge Instruction [facility] Medical Records Department [address] [place] [address] Instructions for Home/Discharge Instructions 02/06/24 0939 MR#: [id number] Acct: [id number] Name: LUTHER CASTILLO II Rep #: [id number] : 1955 68 From: Rohit Crawford MD [...] W/Diff, Automated (Routine) Timeframe: 1 Week [facility] - Location: Laboratory Ordered By: Dr. Rohit Crawford Referrals / Follow Up: López Ocampo MD [Primary Care Provider] - Disposition Disposition (needs filled in before D/C Order can be placed): Home, Self Care 02/06/24 0943 Rohit Crawford MD CC: Dr. López Ocampo MD Signed [facility] Gram Stainon 02-06-2024 GS Collected in OR - Peritoneal Fluid Gram Stain 3+ White Blood Cells No organisms seen [facility] Comment on above: Performed By: #### B TS, L300.4310, L300.3900 #### [facility] [address] [place], [address] HH, Hemoglobin AND Hematocri ton 02-06-2024 Hematocrit (Bld) [Volume fraction] 27.3 % Low 40-54 [facility] Comment on above: Performed By: #### L 100.0600 #### [facility] [address] [place], [address] Hemoglobin (Bld) [Mass/Vol] 7.9 g/dL Low 13.0-16.5 [facility] Comment on above: Performed By: #### L 100.0600 #### [facility] [address] [place], [place], [address] Special Stain Group IIon Special Stain Group II Patient Age/Sex Location Account Attending Physician LUTHER CASTILLO II 68/M MS3 [id number] Dr. Rohit Crawford MD Specimen: [id number] Received: 02/06/24 Status: SONIYA Watson[place]ola Num: [id number] Spec Type: Fluid Subm Dr: Dr. Rohit Crawford MD HEADER OPERATION: Not noted PRE-OP DIAGNOSIS: Acute appendicitis TISSUE SUBMITTED: Peritoneal fluid for cytology DIAGNOSIS CYTOLOGY Peritoneal fluid for cytology (cytospin and cellblock): Negative for malignant cells. Acute inflammation. See comment. 02/09/2024 COMMENT Please make reference to additional specimen [id number] appendix, appendectomy with diagnosis of acute appendicitis and periappendicitis. Clinical correlation and appropriate follow up are necessary. CYTOLOGY STUDY Slides are reviewed. CYTOLOGY GROSS Received is 5 ml of yellow-cloudy fluid labeled with the patient's name and and designated per the requisition as Peritoneal fluid. Submitted for cytology preparation including cell block. Mr 02/06/2024 TC:2 CPT: 49376,25266 Signed (signature on file) Dr. Toy Cerrato MD 02/10/24 1156 [facility] Comment on above: Performed By: #### B TS, L300.4310, L300.3900 #### [facility] [address] [place], [address] 12 Lead EKGon 02-05-2024 12 Lead EKG [facility] Cardiovascular Services [address] [place] [address] 12 Lead EKG 02/05/24 1329 MR#: [id number] Acct: [id number] Name: LUTHER CASTILLO II Rep #: [id number] : 1955 68 From: Timmy Sood MD Attending Dr: Dr. Rohit Crawford MD Status: ADM CARLENE Ordering Dr: Ajay Garcia DO Date: 02/05/24 Location: ID3 Sex: M C Admitted: 02/05/24 Test Reason [...] Abnormal ECG Confirmed by LENIN NUNEZ, TIMMY ([id number]), general expeditor DERREK PAN ([id number]) on 02/06/2024 8:21:22 AM Referred By: Confirmed By: TIMMY SOOD MD 02/06/24 0821 Date Timmy Sood MD CC: Dr. López Ocampo MD; Dr. Rohit Crawford MD; Dr. Ajay Garcia DO Signed [facility] Abdomen/Pelvis without Conto n 02-05-2024 Abdomen/Pelvis without Cont [facility] Imaging Services [address] [place] [address] Abdomen/Pelvis without Cont MR#: [id number] Acct: [id number] Name: LUTHER CASTILLO II Rep #: [id number] : 1955 M 68 From: Maximo stern MD PCP: Dr. López Ocampo MD Status: REG ER Study: Abdomen/Pelvis without Cont Date of Exam: 01/07 04/30 Exam# [id number] Ordering Dr: Ajay Garcia DO [id number] STUDY: CT ABDOMEN AND PELVIS WITHOUT CONTRAST [...] 12:08 EDT Reading Location ID and State: [address] [place] [address] , Service support , CC: Dr. López Ocampo MD; Dr. Ajay Garcia DO Drycleaner: Signed [facility] Basic Metabolic Profile (BMP )on 02-05-2024 BUN/CRE 23.4 RATIO High 10-20 [facility] Comment on above: Performed By: #### B TS, L300.4310, L300.3900 #### [facility] [address] [place], [place], [address] CA,Total 9.1 mg/dL Normal 8.5-10.1 [facility] Comment on above: Performed By: #### B TS, L300.4310, L300.3900 #### [facility] [address] [place], [address] Chloride [Moles/Vol] 106 mmol/L Normal 98-107 [facility] Comment on above: Performed By: #### B TS, L300.4310, L300.3900 #### [facility] [address] [place], [address] CO2 [Moles/Vol] 24.0 mmol/L Normal 21.0-32.0 [facility] Comment on above: Performed By: #### B TS, L300.4310, L300.3900 #### [facility] [address] [place], [address] Creatinine [Mass/Vol] 0.98 mg/dL Normal 0.70-1.30 [facility] Comment on above: Result Comment: The validity of the calculated GFR GFRAA in patients over 70 years has not been determined. Clinical correlation is essential. Performed By: #### B TS, L300.4310, L300.3900 #### [facility] [address] [place], [address] ECRCL 67.06 ml/min [facility] Comment on above: Performed By: #### B TS, L300.4310, L300.3900 #### [facility] [address] [place], [address] EST GFR - AA 97 mL/min Normal >60 [facility] Comment on above: Result Comment: Afri can Zimbabwean GFR Calc Performed By: #### B TS, L300.4310, L300.3900 #### [facility] [address] [place], [address] GAP 10 Normal 5-15 [facility] Comment on above: Performed By: #### B TS, L300.4310, L300.3900 #### [facility] [address] [place], [address] GFR/1.73 sq M.predicted among non-blacks MDRD (S/P/Bld) [Vol rate/Area] 80 mL/min/{1.73_m2} Normal >60 [facility] Comment on above: Result Comment: Non- GFR Calc Performed By: #### B TS, L300.4310, L300.3900 #### [facility] [address] [place], [address] Glucose [Mass/Vol] 97 mg/dL Normal 74-106 [facility] Comment on above: Performed By: #### B TS, L300.4310, L300.3900 #### [facility] [address] [place], [address] Potassium [Moles/Vol] 3.6 mmol/L Normal 3.5-5.1 [facility] Comment on above: Performed By: #### B TS, L300.4310, L300.3900 #### [facility] [address] [place], [address] Sodium [Moles/Vol] 140 mmol/L Normal 136-145 [facility] Comment on above: Performed By: #### B TS, L300.4310, L300.3900 #### [facility] [address] [place], [address] Urea nitrogen [Mass/Vol] 23 mg/dL High 7-18 [facility] Comment on above: Performed By: #### B TS, L300.4310, L300.3900 #### [facility] [address] [place], [address] CBC W/Diff, Automatedon 10-3 Anisocytosis Ql (Bld) 2+ Normal [facility] Comment on above: Performed By: #### B TS, L300.4310, L300.3900 #### [facility] [address] [place], [address] HYPOCHROMASIA 1+ Normal [facility] Comment on above: Performed By: #### B TS, L300.4310, L300.3900 #### [facility] [address] [place], [address] OVALOCYTE 2+ Normal [facility] Comment on above: Performed By: #### B TS, L300.4310, L300.3900 #### [facility] [address] [place], [address] PLT EST ADEQUATE Normal ADEQ [facility] Comment on above: Performed By: #### B TS, L300.4310, L300.3900 #### [facility] [address] [place], [address] POLYCHROMASIA 1+ Normal [facility] Comment on above: Performed By: #### B TS, L300.4310, L300.3900 #### [facility] [address] [place], [address] SMEAR COMMENT SCANNED Normal [facility] Comment on above: Performed By: #### B TS, L300.4310, L300.3900 #### [facility] [address] [place], [address] TEAR DROP 1+ Normal [facility] Comment on above: Performed By: #### B TS, L300.4310, L300.3900 #### [facility] [address] [place], [address] CNPNon 02-05-2024 CNPN Normal [facility] Chest 1 View (Portable)on Chest 1 View (Portable) [facility] Imaging Services [address] [place] [address] Chest 1 View (Portable) MR#: [id number] Acct: [id number] Name: LUTHER CASTILLO II Rep #: [id number] : 1955 M 68 From: Maximo stern MD PCP: Dr. López Ocampo MD Status: [facility] Study: Chest 1 View (Portable) Date of Exam: 02/05/24 Exam# [id number] Ordering Dr: Ajay Garcia DO [id number] STUDY: X-RAY CHEST REASON FOR EXAM: Male, [...] López Ocampo MD; Dr. Ajay Garcia DO Drycleaner: Signed [facility] Cytology, Body Fluid / CSFon 02-05-2024 CYTOLOGY,BF/CSF SEE PATHOLOGY REPORT Normal [facility] Comment on above: Order Comment: Comme nts: Collected in OR - Peritoneal fluidHas pt arrived? Y Result Comment: Spec imen submitted to Anatomical Pathology Department for testing. Performed By: #### B TS, L300.4310, L300.3900 #### [facility] [address] [place], [address] Emergency Department Summary on 02-05-2024 Emergency Department Summary [facility] Medical Records Department [address] [place] [address] Emergency Department Summary 02/05/24 MR#: [id number] Acct: [id number] Name: LUTHER CASTILLO II Rep #: [id number] : 1955 68 From: Ajay Rizo PCP: Dr. López Ocampo MD Status:ADM CARLENE Location: MS3 PH402-8 HPI HPI - GI History of Present [...] however CT negative (more content not included)... [facility] MR/POSTOP.ANEon 02-05-2024 MR/POSTOP.[facility] Medical Records Department [address] [facility] [place] [address] Anesthesia Postop Eval I 02/05/241716 MR#: [id number] Acct: [id number] Name: LUTHER CASTILLO II Rep #: [id number] : 1955 68 From: Nelia Mathews CRNA PCP: Dr. López Ocampo MD Status:REG [facility] Y Race: C Location: [place] [address] Anesthesia: Postop Eval I Current Vital Signs [...] 1 completed: Yes 02/05/241718 Date Nelia Mathews [employer] CR[employer]ING [employer]ARD SUPERVISOR Cosigner Signature: Date CC: Signed [facility] MR/BINIUCVY8yj 02-05-2024 MR/POSTOPAN2 [facility] Medical Records Department [address] [place] [address] Anesthesia Postop Eval II 02/05/241725 MR#: [id number] Acct: [id number] Name: LUTHER CASTILLO II Rep #: [id number] : 1955 68 From: Bhanu Salinas MD PCP: Dr. López Ocampo MD Status:REG [facility] Y Race: C Location: [facility] AC-TBA-1 Anesthesia Postop Eval I Sum Postop Eval Completion status Anesthesia document: Postop Eval 1 completed: Yes Anesthesia Postop Eval I Summary Anesthesia Postop Eval I Summary: Anesthesia Postop Eval I: Assessment Summary Airway patent Yes 02/05/24 17:19 [employer] CR[employer]ING [employer] SUPERVISOR.SKOBY Spontaneous unlabored Yes 02/05/24 17:19 [employer] CROSSING GUARD SUPERVISOR.SKOBY respirations Mental status Awake,Calm 02/05/24 17:19 [employer] CROSSING GUARD SUPERVISOR.SKOBY nausea No 02/05/24 17:19 SCHO[employer] CROSSING GUARD SUPERVISOR.SKOBY Vomiting No 02/05/24 17:19 SCHO[employer] CROSSING GUARD SUPERVISOR.SKOBY Anesthesia Postop Eval I: Fluid Summary Crystalloid volume administer 1,000 02/05/24 17:19 SCHO[employer] CROSSING GUARD SUPERVISOR.SKOBY (ml) Colloids volume administered ( ml) Blood Product volume administered (ml) Total IV fluid infused 1,000 02/05/24 17:19 SCHOOL CROSSING GUARD SUPERVISOR.SKOBY Anesthesia Postop Eval I: Summary Notes Anesthesia Complication No 02/05/24 17:19 SCHOOL CROSSING GUARD SUPERVISOR.SKOBY Anesthesia Complication Comment: Post-operative progress note Anesthesia: Postop Eval II Evaluation Mental status: Awake Pain Level: 2 nausea: No Vomiting: No 02/05/241725 Date Bhanu Salinas MD Cosigner Signature: Date CC: Signed [facility] Operative Reporton 4 Operative Report [facility] Medical Records Department [address] [place] [address] Operative Report 02/05/24 1702 MR#: [id number] Acct: [id number] Name: LUTHER CASTILLO II Rep #: [id number] : 1955 68 From: Rohit Crawford MD PCP: Dr. López Ocampo MD Status:[facility] Location: [place] [address] Operative Report (Standard) Operative Information Surgery/Procedure Performed: [...] was closed with #1 Vicryl in a uezcxv-co-mqyam fashion. The port sites were infiltrated with [...] Evidence of a right-sided indirect inguinal hernia Break Up Worker gas line installer: Yes President [employer]: Jonathan Pressley Tasks completed by assistant boiler operator: Opening, Closing and Other (Laparoscopic camera) Complications Complications: Yes Complication Details: None Admit VTE Documentation VTE Mechan Device Prophylaxis: SCD's Procedures Digestive 40xxx-49xxx: 32930 Laparoscopy appendectomy 02/05/24 1716 Cosigner Signature (if applicable): CC: Dr. López Ocampo MD; Dr. Rohit Crawford MD Signed [facility] Partial Thromboplast Timeon 02-05-2024 aPTT Coag (Bld) [Time] 23.5 s Low 24.1-36.2 [facility] Comment on above: Performed By: #### B TS, L300.4310, L300.3900 #### [facility] [address] [place], [address] Prothrombin Time w/INRon INR Coag (PPP) [Relative time] 1.1 {INR} [facility] Comment on above: Performed By: #### B TS, L300.4310, L300.3900 #### [facility] [address] [place], [place], [address] PT Coag (PPP) [Time] 14.0 s Normal 11.7-14.9 [facility] Comment on above: Performed By: #### B TS, L300.4310, L300.3900 #### [facility] [address] [place], [place], [address] Surgery Specimen Level IIIon 02-05-2024 Surgery Specimen Level III Patient Age/Sex Location Account Attending Physician LUTHER CASTILLO II 68/M MS3 [id number] Dr. Rohit Crawford MD Specimen: [id number] Received: 02/05/24 Status: SONIYA Bradford Num: [id number] Spec Type: APPENDIX Subm Dr: Dr. Rohit [...] any fecal material. No fecalith is identified. Unloader Operator sections are submitted in one cassette. SJ. 02/06/2024 Rest of the specimen is submitted in two cassettes. Cassette 2 contains the tip and most proximal portion. / SJ: 02/09/2024 TC:2 CPT: 25920 Patient Age/Sex Location Account Attending Physician LUTHER CASTILLO II 68/M MS3 [id number] Dr. Rohit Crawford MD Signed (signature on file) Dr. Toy Cerrato MD 02/10/24 1156 Normal [facility] Comment on above: Performed By: #### P SUIII #### [facility] [address] [place], [address] Type AND Screenon 02-05-2024 Ab SCREEN GEL Negative Normal [facility] Comment on above: Order Comment: S Performed By: #### B TS, L300.4310, L300.3900 #### [facility] [address] [place], [address] Urinalysis, Completeon 02-04 AMORPHOUS 1+ Normal [facility] Comment on above: Order Comment: CLEAN CATCH Performed By: #### B TS, L300.4310, L300.3900 #### [facility] [address] [place], [address] BACTERIA RARE Normal None Seen [facility] Comment on above: Order Comment: CLEAN CATCH Performed By: #### B TS, L300.4310, L300.3900 #### [facility] [address] [place], [address] EPI,SQUAMOUS 0 SEEN Normal 0-5 [facility] Comment on above: Order Comment: CLEAN CATCH Performed By: #### B TS, L300.4310, L300.3900 #### [facility] [address] [place], [address] Mucus Ql (Urine sed) 0 SEEN Normal [facility] Comment on above: Order Comment: CLEAN CATCH Performed By: #### B TS, L300.4310, L300.3900 #### [facility] [address] [place], [address] RBC 0 SEEN Normal 0-5 [facility] Comment on above: Order Comment: CLEAN CATCH Performed By: #### B TS, L300.4310, L300.3900 #### [facility] [address] [place], [address] WBC 0 SEEN Normal [address] [place] [address] Comment on above: Order Comment: CLEAN CATCH Performed By: #### B TS, L300.4310, L300.3900 #### [facility] [address] [place], [address] CNOVon 02-03-2024 CNOV Normal [facility] CNPNon 02-03-2024 CNPN Normal [facility] No Panel Informationon 02-02 IMPRESSION: 1 mm posterior RIGHT testicular calcification. Sonographic appearance of the scrotal contents is otherwise unremarkable. Normal arterial and venous flow within both testes. No abnormality is demonstrated in the LEFT inguinal canal. Drycleaner: PARIL Transcribe Date/Time: Feb 03 2024 2:57P Dictated by : CONSTANTIN LEON MD This examination was interpreted and the report reviewed and electronically signed by: CONSTANTIN LEON MD on Feb 03 2024 3:03PM [facility] RADIOLOGY Radiology Study observation (narrative) [facility] No Panel InformationOrdered By: Ccf Provider on 02-03-2024 [facility] US DOPPLER COMPLETEon 2023 US DOPPLER COMPLETE Normal [facility] US SCROTUM AND CONTENTSon US SCROTUM AND CONTENTS Normal [facility] US.doppler Scrotum and testi hali 02-03-2024 [...] canal are unremarkable. DIVISION OF RADIOLOGY Provider, [facility] - 02/03/2024 * * *Final Report* * [...] is demonstrated in the LEFT inguinal canal. Drycleaner: [facility] Transcribe Date/Time: Feb 03 2024 2:57P Dictated by : CONSTANTIN LEON MD This examination was interpreted and the report reviewed and electronically signed by: CONSTANTIN LEON MD on Feb 03 2024 3:03PM [facility] US.doppler Unspecified body regionon 02-03-2024 * * *Final Report* * * DATE OF EXAM: Feb 03 2024 2:56PM [facility] 1033 - US DOPPLER COMPLETE / PROCEDURE [...] canal are unremarkable. DIVISION OF RADIOLOGY Provider, [facility] - 02/03/2024 * * *Final Report* * * DATE OF EXAM: Feb 03 2024 2:56PM [facility] 1033 - US DOPPLER COMPLETE / PROCEDURE [...] is demonstrated in the LEFT inguinal canal. Drycleaner: APRIL Transcribe Date/Time: Feb 03 2024 2:57P Dictated by : CONSTANTIN LEON MD This examination was interpreted and the report reviewed and electronically signed by: CONSTANTIN LEON MD on Feb 03 2024 3:03PM EST [facility] [id number] 01-29-2024 [id number] HNO ID: [id number] Author: ENDY CURRAN PT Service: ? Author Type: Physical Therapist Type: [id number] Filed: 01/29/2024 14:32 Note Text: [facility] Rehabilitation and Sports Therapy Physical Therapy Plan of Care Certification Patient Name: Luther Castillo : 1955 [facility] #: [id number] Date: 01/29/2024 To: Catherine Peraza APRN, PROGRAMMER BUSINESS From Therapist: Endy Curran PT, DERRICK RE: [...] Planned: 12 Planned Treatment Interventions: Therapeutic exercise (39107), Manual therapy (77398), Therapeutic activities (14113), Self-mcfp management (61270), Patient/Family/Caregiver Education, Body Mechanics Training PLAN FOR [...] reviewed the treatment plan for Luther Castillo, [facility]# [id number] for the period of 01/29/24 -- 03/19/24, established on 01/29/2024. Signature certifies the need for therapy services. [facility] CNTHERAPYon 01-29-2024 CNTHERAPY OT/PT/Speech Visit ([facility]MTUS) -- JONATHAN,JOHN Col[place] ([id number]) 1955 M Date Time Provider Department 01/29/24 9:30 AM ENDY CURRAN [facility] Date Time Provider Department [place] 01/29/2024 9:30 AM [id number], CYNTHIA*[facility] M Reason for Visit: PT Eval [747] [...] in the MR contrast administration guidelines link. Enamel Applier: Addendum Therapy (PT/OT/Speech/Resp) ID: [id number] 01/29/2024 10:39 AM Author: ENDY CURRAN Signed by ENDY CURRAN PT on 01/29/2024 at 10:39 AM * * * This document replaces document [id number] * * * Document text: Program_ID:[id number] Access Code: [email or web address] URL: [email or web address] Date: 01-29-2024 Prepared By: ENDY CURRAN Program [...] weekly - 1 sets - 5 reps [facility] THERAPY NTon 01-29-2024 THERAPY NT HNO ID: [id number] Author: ENDY CURRAN PT Service: ? Author Type: Physical Therapist Type: Therapy (PT/OT/Speech/Resp) Filed: 01/29/2024 10:39 Note Text: Program_ID:[id number] Access Code: [email or web address] URL: [email or web address] Date: 01-29-2024 Prepared By: ENDY CURRAN Program [...] - 1 sets - 5 reps Normal [facility] CNPNon 01-23-2024 CNPN Normal [facility] Basic metabolic 2000 panelon 01-21-2024 Anion gap [Moles/Vol] 8 mmol/L Normal 8-15 [facility] Comment on above: Order Comment: Speci men Type: BLOOD SPECIMENOrdering Facility: [facility] Address: [address] [place] [address] Performed By: #### 2 4321-2 ####[facility] MILLTOWNCLIA [id number] [place] [address] [place] Calcium [Mass/Vol] 9.1 mg/dL Normal 8.5-10.2 [facility] Comment on above: Order Comment: Speci men Type: BLOOD SPECIMENOrdering Facility: [facility] Address: [address] [place] [address] Performed By: #### 2 4321-2 ####[facility] [place] MILLTOWNCLIA [id number] [place] [address] [place] Chloride [Moles/Vol] 104 mmol/L Normal 98-107 [facility] Comment on above: Order Comment: Speci men Type: BLOOD SPECIMENOrdering Facility: [facility] Address: [address] [place] [address] Performed By: #### 2 4321-2 ####[facility] [place] MILLTOWNCLIA [id number] [place] [address] [place] CO2 [Moles/Vol] 26 mmol/L Normal 22-30 [facility] Comment on above: Order Comment: Speci men Type: BLOOD SPECIMENOrdering Facility: [facility] Address: [address] [place] [address] Performed By: #### 2 4321-2 ####[facility] [id number] [place] [address] [place] Creatinine [Mass/Vol] 0.95 mg/dL Normal 0.73-1.22 [facility] Comment on above: Order Comment: Speci men Type: BLOOD SPECIMENOrdering Facility: [facility] Address: [address] [place] [address] Performed By: #### 2 4321-2 ####[facility] [id number] [address] STATES OF [facility] Creatinine and Glomerular filtration rate.predicted panel (S/P/Bld) 86 mL/min/1.73m??? Normal >=60 [facility] Comment on above: Order Comment: Speci men Type: BLOOD SPECIMENOrdering Facility: [facility] Address: [address] [place] [address] Result Comment: Beth mated Glomerular Filtration Rate [...] actual GFR. Performed By: #### 2 4321-2 ####[facility] [id number] [place] [address] [place] Glucose [Mass/Vol] 95 mg/dL Normal 74-99 [facility] Comment on above: Order Comment: Speci men Type: BLOOD SPECIMENOrdering Facility: [facility] Address: [address] [place] [address] Result Comment: The [place] Diabetes Association (ADA) provides guidance for cutoff [...] Standards of Medical Care in Diabetes 2016, [place] Diabetes Association. Diabetes Care. 2016.39(Suppl 1). Performed By: #### 2 4321-2 ####[facility] [id number] [place] [address] [place] Potassium [Moles/Vol] 4.0 mmol/L Normal 3.7-5.1 [facility] Comment on above: Order Comment: Speci men Type: BLOOD SPECIMENOrdering Facility: [facility] Address: [address] [place] [address] Performed By: #### 2 4321-2 ####[facility] [id number] [place] [address] [place] Sodium [Moles/Vol] 138 mmol/L Normal 136-144 [facility] Comment on above: Order Comment: Speci men Type: BLOOD SPECIMENOrdering Facility: [facility] Address: [address] [place] [address] Performed By: #### 2 4321-2 ####[facility] [id number] [place] [address] [place] Urea nitrogen [Mass/Vol] 15 mg/dL Normal 9-24 [facility] Comment on above: Order Comment: Speci men Type: BLOOD SPECIMENOrdering Facility: [facility] Address: [address] [place] [address] Performed By: #### 2 4321-2 ####[facility] MILLWNCLIA [id number] [place] [address] [place] CBC W Auto Differential pane l (Bld)on 01-21-2024 Basophils (Bld) [#/Vol] 10*3/uL Normal <0.11 [facility] Comment on above: Order Comment: Speci men Type: BLOOD SPECIMENOrdering Facility: [facility] Address: [address] [place] [address] Performed By: #### 5 7021-8 ####[facility] [id number] [place] [address] [place] Basophils/100 WBC (Bld) 0.3 % Normal [facility] Comment on above: Order Comment: Speci men Type: BLOOD SPECIMENOrdering Facility: [facility] Address: [address] [place] [address] Performed By: #### 5 7021-8 ####[facility] [id number] [place] [address] [place] Differential cell count method Nom (Bld) Auto Normal [facility] Comment on above: Order Comment: Speci men Type: BLOOD SPECIMENOrdering Facility: [facility] Address: [address] [place] [address] Performed By: #### 5 7021-8 ####[facility] [id number] [place] [address] [place] Eosinophils (Bld) [#/Vol] 0.34 10*3/uL Normal <0.46 [facility] Comment on above: Order Comment: Speci men Type: BLOOD SPECIMENOrdering Facility: [facility] Address: [address] [place] [address] Performed By: #### 5 7021-8 ####[facility] [id number] [place] [address] [place] Eosinophils/100 WBC (Bld) 5.5 % Normal [facility] Comment on above: Order Comment: Speci men Type: BLOOD SPECIMENOrdering Facility: [facility] Address: [address] [place] [address] Performed By: #### 5 7021-8 ####[facility] [id number] [place] [address] [place] Erythrocyte distribution width (RBC) [Ratio] 20.1 % High 11.5-15.0 [facility] Comment on above: Order Comment: Speci men Type: BLOOD SPECIMENOrdering Facility: [facility] Address: [address] [place] [address] Performed By: #### 5 7021-8 ####[facility] [id number] [place] [address] [place] Hematocrit (Bld) [Volume fraction] 30.6 % Low 39.0-51.0 [facility] Comment on above: Order Comment: Speci men Type: BLOOD SPECIMENOrdering Facility: [facility] Address: [address] [place] [address] Performed By: #### 5 7021-8 ####[facility] [id number] [place] [address] [place] Hemoglobin (Bld) [Mass/Vol] 9.2 g/dL Low 13.0-17.0 [facility] Comment on above: Order Comment: Speci men Type: BLOOD SPECIMENOrdering Facility: [facility] Address: [address] [place], [place] [address] Performed By: #### 5 7021-8 ####[facility]NCLI [id number] [place] [address] [place] Immature granulocytes (Bld) [#/Vol] 10*3/uL Normal <0.10 [facility] Comment on above: Order Comment: Speci men Type: BLOOD SPECIMENOrdering Facility: [facility] Address: [address] [place] [address] Performed By: #### 5 7021-8 ####[facility] BIENVENIDODONA [id number] [place] [address] [place] Immature granulocytes/100 WBC (Bld) 0.3 % Normal [facility] Comment on above: Order Comment: Speci men Type: BLOOD SPECIMENOrdering Facility: [facility] Address: [address] [place] [address] Performed By: #### 5 7021-8 ####[facility]ITAL[facility] [id number] [place] [address] [place] Lymphocytes (Bld) [#/Vol] 2.37 10*3/uL Normal 1.00-4.00 [facility] Comment on above: Order Comment: Speci men Type: BLOOD SPECIMENOrdering Facility: [facility] Address: [address] [place] [address] Performed By: #### 5 7021-8 ####[facility] [id number] [place] [address] [place] Lymphocytes/100 WBC (Bld) 38.3 % Normal [facility] Comment on above: Order Comment: Speci men Type: BLOOD SPECIMENOrdering Facility: [facility] Address: [address] [place] [address] Performed By: #### 5 7021-8 ####[facility] [id number] [place] [address] [place] MCH (RBC) [Entitic mass] 24.5 pg Low 26.0-34.0 [facility] Comment on above: Order Comment: Speci men Type: BLOOD SPECIMENOrdering Facility: [facility] Address: [address] [place] [address] Performed By: #### 5 7021-8 ####[facility] [id number] [place] [address] [place] MCHC (RBC) [Mass/Vol] 30.1 g/dL Low 30.5-36.0 [facility] Comment on above: Order Comment: Speci men Type: BLOOD SPECIMENOrdering Facility: [facility] Address: [address] [place] [address] Performed By: #### 5 7021-8 ####[facility] [id number] [place] [address] [place] MCV (RBC) [Entitic vol] 81.4 fL Normal 80.0-100.0 [facility] Comment on above: Order Comment: Speci men Type: BLOOD SPECIMENOrdering Facility: [facility] Address: [address] [place] [address] Performed By: #### 5 7021-8 ####[facility] [id number] [place] [address] [place] Monocytes (Bld) [#/Vol] 0.40 10*3/uL Normal <0.87 [facility] Comment on above: Order Comment: Speci men Type: BLOOD SPECIMENOrdering Facility: [facility] Address: [address] [place] [address] Performed By: #### 5 7021-8 ####[facility] [id number] [place] [address] [place] Monocytes/100 WBC (Bld) 6.5 % Normal [facility] Comment on above: Order Comment: Speci men Type: BLOOD SPECIMENOrdering Facility: [facility] Address: [address] [place] [address] Performed By: #### 5 7021-8 ####[facility]ITALNCL[facility] [id number] [place] [address] [place] Neutrophils (Bld) [#/Vol] 3.03 10*3/uL Normal 1.45-7.50 [facility] Comment on above: Order Comment: Speci men Type: BLOOD SPECIMENOrdering Facility: [facility] Address: [address] [place] [address] Performed By: #### 5 7021-8 ####[facility] [id number] [place] [address] [place] Neutrophils/100 WBC (Bld) 49.1 % Normal [facility] Comment on above: Order Comment: Speci men Type: BLOOD SPECIMENOrdering Facility: [facility] Address: [address] [place] [address] Performed By: #### 5 7021-8 ####[facility] [id number] [place] [address] [place] Nucleated RBC (Bld) [#/Vol] 10*3/uL Normal <0.01 [facility] Comment on above: Order Comment: Speci men Type: BLOOD SPECIMENOrdering Facility: [facility] Address: [address] [place] [address] Performed By: #### 5 7021-8 ####[facility] [id number] [place] [address] [place] Nucleated RBC/100 WBC (Bld) [Ratio] 0.0 /100 WBC Normal [facility] Comment on above: Order Comment: Speci men Type: BLOOD SPECIMENOrdering Facility: [facility] Address: [address] [place] [address] Performed By: #### 5 7021-8 ####[facility] [id number] [place] [address] [place] Platelet mean volume (Bld) [Entitic vol] 8.3 fL Low 9.0-12.7 [facility] Comment on above: Order Comment: Speci men Type: BLOOD SPECIMENOrdering Facility: [facility] Address: [address] [place], [place] [address] Performed By: #### 5 7021-8 ####[facility] CORONANCKATERINA [id number] [place] [address] [place] Platelets (Bld) [#/Vol] 178 10*3/uL Normal 150-400 [facility] Comment on above: Order Comment: Speci men Type: BLOOD SPECIMENOrdering Facility: [facility] Address: [address] [place] [address] Performed By: #### 5 7021-8 ####[facility] BIENVENIDOMariannaNCKATERINA [id number] [place] [address] [place] RBC (Bld) [#/Vol] 3.76 10*6/uL Low 4.20-6.00 [facility] Comment on above: Order Comment: Speci men Type: BLOOD SPECIMENOrdering Facility: [facility] Address: [address] [place] [address] Performed By: #### 5 7021-8 ####[facility] BIENVENIDOPLYMOUTH MEETINGNCLIA [id number] [place] [address] [place] WBC (Bld) [#/Vol] 6.18 10*3/uL Normal 3.70-11.00 [facility] Comment on above: Order Comment: Speci men Type: BLOOD SPECIMENOrdering Facility: [facility] Address: [address] [place] [address] Performed By: #### 5 7021-8 ####[facility]ITALNCL[facility] [id number] [place] [address] [place] CNOVSPon 01-21-2024 CNOVSP Normal [facility] CNPNon 12-30-2023 CNPN Normal [facility] CNOVon 12-24-2023 CNOV Normal [facility] XR HIP 3V PELV+ AP/LAT LTon 12-24-2023 XR HIP 3V PELV+ AP/LAT LT Normal [facility] Basic metabolic 2000 panelon 12-17-2023 Anion gap [Moles/Vol] 11 mmol/L Normal 8-15 [facility] Comment on above: Order Comment: Speci men Type: BLOOD SPECIMENOrdering Facility: [facility] Address: [address] [place] [address] Performed By: #### 2 4321-2 ####[facility] MILLTOWNCLIA [id number] [place] [address] [place] Calcium [Mass/Vol] 9.2 mg/dL Normal 8.5-10.2 [facility] Comment on above: Order Comment: Speci men Type: BLOOD SPECIMENOrdering Facility: [facility] Address: [address] [place] [address] Performed By: #### 2 4321-2 ####[facility] MILLWNCLIA [id number] [place] [address] [place] Chloride [Moles/Vol] 103 mmol/L Normal 98-107 [facility] Comment on above: Order Comment: Speci men Type: BLOOD SPECIMENOrdering Facility: [facility] Address: [address] [place] [address] Performed By: #### 2 4321-2 ####[facility] MILLTOWNCLIA [id number] [place] [address] [place] CO2 [Moles/Vol] 26 mmol/L Normal 22-30 [facility] Comment on above: Order Comment: Speci men Type: BLOOD SPECIMENOrdering Facility: [facility] Address: [address] [place] [address] Performed By: #### 2 4321-2 ####[facility] MILLTOWNCLIA [id number] [place] [address] [place] Creatinine [Mass/Vol] 0.96 mg/dL Normal 0.73-1.22 [facility] Comment on above: Order Comment: Bassam hong Type: BLOOD SPECIMENOrdering Facility: [facility] Address: [address] [place] [address] Performed By: #### 2 4321-2 ####[facility] [id number] [place] [address] [place] Creatinine and Glomerular filtration rate.predicted panel (S/P/Bld) 85 mL/min/1.73m??? Normal >=60 [facility] Comment on above: Order Comment: Bassam hong Type: BLOOD SPECIMENOrdering Facility: [facility] Address: [address] [place] [address] Result Comment: Beth mated Glomerular Filtration Rate [...] actual GFR. Performed By: #### 2 4321-2 ####[facility] [id number] [place] [address] [place] Glucose [Mass/Vol] 151 mg/dL High 74-99 [facility] Comment on above: Order Comment: Bassam hong Type: BLOOD SPECIMENOrdering Facility: [facility] Address: [address] [place] [address] Result Comment: The [place] [employer] (ADA) provides guidance for cutoff [...] Standards of Medical Care in Diabetes 2016, [place] [employer]. Diabetes Care. 2016.39(Suppl 1). Performed By: #### 2 4321-2 ####[facility] [id number] [place] [address] [place] Potassium [Moles/Vol] 4.0 mmol/L Normal 3.7-5.1 [facility] Comment on above: Order Comment: Speci men Type: BLOOD SPECIMENOrdering Facility: [facility] Address: [address] [place] [address] Performed By: #### 2 4321-2 ####[facility] [id number] [place] [address] [place] Sodium [Moles/Vol] 140 mmol/L Normal 136-144 [facility] Comment on above: Order Comment: Speci men Type: BLOOD SPECIMENOrdering Facility: [facility] Address: [address] [place] [address] Performed By: #### 2 4321-2 ####[facility] [id number] [place] [address] [place] Urea nitrogen [Mass/Vol] 17 mg/dL Normal 9-24 [facility] Comment on above: Order Comment: Speci men Type: BLOOD SPECIMENOrdering Facility: [facility] Address: [address] [place] [address] Performed By: #### 2 4321-2 ####[facility] [id number] [place] [address] [place] CBC W Auto Differential pane l (Bld)on 12-17-2023 Basophils (Bld) [#/Vol] 10*3/uL Normal <0.11 [facility] Comment on above: Order Comment: Speci men Type: BLOOD SPECIMENOrdering Facility: [facility] Address: [address] [place] [address] Performed By: #### 5 7021-8 ####[facility] VIKTORWNCLIA [id number] [place] [address] [place] Basophils/100 WBC (Bld) 0.5 % Normal [facility] Comment on above: Order Comment: Speci men Type: BLOOD SPECIMENOrdering Facility: [facility] Address: [address] [place] [address] Performed By: #### 5 7021-8 ####[facility] BIENVENIDOWANGELICALIA [id number] [place] [address] [place] Differential cell count method Nom (Bld) Auto Normal [facility] Comment on above: Order Comment: Speci men Type: BLOOD SPECIMENOrdering Facility: [facility] Address: [address] [place] [address] Performed By: #### 5 7021-8 ####[facility] BIENVENIDOMariannaANGELICALIA [id number] [place] [address] [place] Eosinophils (Bld) [#/Vol] 0.23 10*3/uL Normal <0.46 [facility] Comment on above: Order Comment: Speci men Type: BLOOD SPECIMENOrdering Facility: [facility] Address: [address] [place] [address] Performed By: #### 5 7021-8 ####[facility] BIENVENIDOCRUZLIA [id number] [place] [address] [place] Eosinophils/100 WBC (Bld) 5.2 % Normal [facility] Comment on above: Order Comment: Speci men Type: BLOOD SPECIMENOrdering Facility: [facility] Address: [address] [place] [address] Performed By: #### 5 7021-8 ####[facility] BIENVENIDOPLYMOUTH MEETINGANGELICALIA [id number] [place] [address] [place] Erythrocyte distribution width (RBC) [Ratio] 20.4 % High 11.5-15.0 [facility] Comment on above: Order Comment: Speci men Type: BLOOD SPECIMENOrdering Facility: [facility] Address: [address] [place] [address] Performed By: #### 5 7021-8 ####[facility] BIENVENIDOPLYMOUTH MEETINGNCLIA [id number] [place] [address] [place] Hematocrit (Bld) [Volume fraction] 30.6 % Low 39.0-51.0 [facility] Comment on above: Order Comment: Speci men Type: BLOOD SPECIMENOrdering Facility: [facility] Address: [address] [place] [address] Performed By: #### 5 7021-8 ####[facility]PITALNCLIA [id number] [place] [address] [place] Hemoglobin (Bld) [Mass/Vol] 9.4 g/dL Low 13.0-17.0 [facility] Comment on above: Order Comment: Speci men Type: BLOOD SPECIMENOrdering Facility: [facility] Address: [address] [place] [address] Performed By: #### 5 7021-8 ####[facility]PITALNCLIA [id number] [place] [address] [place] Immature granulocytes (Bld) [#/Vol] 10*3/uL Normal <0.10 [facility] Comment on above: Order Comment: Speci men Type: BLOOD SPECIMENOrdering Facility: [facility] Address: [address] [place] [address] Performed By: #### 5 7021-8 ####[facility]PITALNCLIA [id number] [place] [address] [place] Immature granulocytes/100 WBC (Bld) 0.2 % Normal [facility] Comment on above: Order Comment: Speci men Type: BLOOD SPECIMENOrdering Facility: [facility] Address: [address] [place] [address] Performed By: #### 5 7021-8 ####[facility] MILLWNCLIA [id number] [place] [address] [place] Lymphocytes (Bld) [#/Vol] 1.79 10*3/uL Normal 1.00-4.00 [facility] Comment on above: Order Comment: Speci men Type: BLOOD SPECIMENOrdering Facility: [facility] Address: [address] [place] [address] Performed By: #### 5 7021-8 ####[facility]PITALNCLIA [id number] [place] [address] [place] Lymphocytes/100 WBC (Bld) 40.7 % Normal [facility] Comment on above: Order Comment: Speci men Type: BLOOD SPECIMENOrdering Facility: [facility] Address: [address] [place] [address] Performed By: #### 5 7021-8 ####[facility]PITALNCLIA [id number] [place] [address] [place] MCH (RBC) [Entitic mass] 24.8 pg Low 26.0-34.0 [facility] Comment on above: Order Comment: Speci men Type: BLOOD SPECIMENOrdering Facility: [facility] Address: [address] [place] [address] Performed By: #### 5 7021-8 ####[facility]-FAIRHILLLIA [id number] [place] [address] [place] MCHC (RBC) [Mass/Vol] 30.7 g/dL Normal 30.5-36.0 [facility] Comment on above: Order Comment: Speci men Type: BLOOD SPECIMENOrdering Facility: [facility] Address: [address] [place] [address] Performed By: #### 5 7021-8 ####[facility] HOSPITALNCLI [id number] [place] [address] [place] MCV (RBC) [Entitic vol] 80.7 fL Normal 80.0-100.0 [facility] Comment on above: Order Comment: Speci men Type: BLOOD SPECIMENOrdering Facility: [facility] Address: [address] [place] [address] Performed By: #### 5 7021-8 ####[facility] [id number] [place] [address] [place] Monocytes (Bld) [#/Vol] 0.27 10*3/uL Normal <0.87 [facility] Comment on above: Order Comment: Speci men Type: BLOOD SPECIMENOrdering Facility: [facility] Address: [address] [place] [address] Performed By: #### 5 7021-8 ####[facility] [id number] [place] [address] [place] Monocytes/100 WBC (Bld) 6.1 % Normal [facility] Comment on above: Order Comment: Speci men Type: BLOOD SPECIMENOrdering Facility: [facility] Address: [address] [place] [address] Performed By: #### 5 7021-8 ####[facility] [id number] [place] [address] [place] Neutrophils (Bld) [#/Vol] 2.08 10*3/uL Normal 1.45-7.50 [facility] Comment on above: Order Comment: Speci men Type: BLOOD SPECIMENOrdering Facility: [facility] Address: [address] [place] [address] Performed By: #### 5 7021-8 ####[facility] [id number] [place] [address] [place] Neutrophils/100 WBC (Bld) 47.3 % Normal [facility] Comment on above: Order Comment: Speci men Type: BLOOD SPECIMENOrdering Facility: [facility] Address: [address] [place] [address] Performed By: #### 5 7021-8 ####[facility] BIENVENIDOMariannaNCMJ [id number] [place] [address] [place] Nucleated RBC (Bld) [#/Vol] 10*3/uL Normal <0.01 [facility] Comment on above: Order Comment: Speci men Type: BLOOD SPECIMENOrdering Facility: [facility] Address: [address] [place] [address] Performed By: #### 5 7021-8 ####[facility]PITALANGELICASALT [facility] [id number] [place] [address] [place] Nucleated RBC/100 WBC (Bld) [Ratio] 0.0 /100 WBC Normal [facility] Comment on above: Order Comment: Speci men Type: BLOOD SPECIMENOrdering Facility: [facility] Address: [address] [place] [address] Performed By: #### 5 7021-8 ####[facility] [id number] [place] [address] [place] Platelet mean volume (Bld) [Entitic vol] 8.4 fL Low 9.0-12.7 [facility] Comment on above: Order Comment: Speci men Type: BLOOD SPECIMENOrdering Facility: [facility] Address: [address] [place] [address] Performed By: #### 5 7021-8 ####[facility]PITALNCLIA [id number] [place] [address] [place] Platelets (Bld) [#/Vol] 203 10*3/uL Normal 150-400 [facility] Comment on above: Order Comment: Speci men Type: BLOOD SPECIMENOrdering Facility: [facility] Address: [address] [place] [address] Performed By: #### 5 7021-8 ####[facility] HOSPITALNCLIA [id number] [place] [address] [place] RBC (Bld) [#/Vol] 3.79 10*6/uL Low 4.20-6.00 [facility] Comment on above: Order Comment: Speci men Type: BLOOD SPECIMENOrdering Facility: [facility] Address: [address] [place] [address] Performed By: #### 5 7021-8 ####[facility]PITALNCLIA [id number] [place] [address] [place] WBC (Bld) [#/Vol] 4.40 10*3/uL Normal 3.70-11.00 [facility] Comment on above: Order Comment: Speci men Type: BLOOD SPECIMENOrdering Facility: [facility] Address: [address] [place] [address] Performed By: #### 5 7021-8 ####[facility]PITALNCLIA [id number] [place] [address] [place] HGB ELECTROPHORESIS FOR EVAL (LAB ORDER)on 12-17-2023 Hemoglobin A (Bld) [Mass fraction] 97.3 % Normal 96.2-98.0 [facility] Comment on above: Order Comment: Speci men Type: BLOOD SPECIMENOrdering Facility: [facility] Address: [address] [place] [address] Performed By: #### H GBELEV ####[facility] LABCLIA [id number] [place] [address] [place] Hemoglobin A2 (Bld) [Mass fraction] 2.7 % Normal 2.0-3.1 [facility] Comment on above: Order Comment: Speci men Type: BLOOD SPECIMENOrdering Facility: [facility] Address: [address] [place] [address] Performed By: #### H GBELEV ####[facility] LABIA [id number] [place] [address] [place] Hemoglobin Unsp Elph (Bld) [Mass fraction] No abnormal hemoglobin identified. Normal No abnormal hemoglobin identified. [facility] Comment on above: Order Comment: Speci men Type: BLOOD SPECIMENOrdering Facility: [facility] Address: [address] [place] [address] Performed By: #### H GBELEV ####[facility] LABIA [id number] [place] [address] [place] RBC PARAMETERS FOR HB IDon 0 12-17-2023 Erythrocyte distribution width (RBC) [Ratio] 20.5 % High 11.5-15.0 [facility] Comment on above: Order Comment: Speci men Type: BLOOD SPECIMENOrdering Facility: [facility] Address: [address] [place] [address] Performed By: #### L [id number] ####[facility] [id number] [place] [address] [place] Hematocrit (Bld) [Volume fraction] 31.3 % Low 39.0-51.0 [facility] Comment on above: Order Comment: Speci men Type: BLOOD SPECIMENOrdering Facility: [facility] Address: [address] [place] [address] Performed By: #### L [id number] ####[facility] LABIA [id number] [place] [address] [place] Hemoglobin (Bld) [Mass/Vol] 9.5 g/dL Low 13.0-17.0 [facility] Comment on above: Order Comment: Speci men Type: BLOOD SPECIMENOrdering Facility: [facility] Address: [address] [place] [address] Performed By: #### L [id number] ####[facility] LABIA [id number] [place] [address] [place] MCH (RBC) [Entitic mass] 25.4 pg Low 26.0-34.0 [facility] Comment on above: Order Comment: Speci men Type: BLOOD SPECIMENOrdering Facility: [facility] Address: [address] [place] [address] Performed By: #### L [id number] ####[facility] LABCLIA [id number] [place] [address] [place] MCHC (RBC) [Mass/Vol] 30.4 g/dL Low 30.5-36.0 [facility] Comment on above: Order Comment: Speci men Type: BLOOD SPECIMENOrdering Facility: [facility] Address: [address] [place] [address] Performed By: #### L [id number] ####[facility] LABIA [id number] [place] [address] [place] MCV (RBC) [Entitic vol] 83.7 fL Normal 80.0-100.0 [facility] Comment on above: Order Comment: Speci men Type: BLOOD SPECIMENOrdering Facility: [facility] Address: [address] [place] [address] Performed By: #### L [id number] ####[facility] LABCLIA [id number] [place] [address] [place] RBC (Bld) [#/Vol] 3.74 10*6/uL Low 4.20-6.00 [facility] Comment on above: Order Comment: Speci men Type: BLOOD SPECIMENOrdering Facility: [facility] Address: [address] [place] [address] Performed By: #### L [id number] ####[facility] LABCLIA [id number] [place] [address] [place] CBC W/Diff, Automatedon 09-0 Anisocytosis Ql (Bld) 2+ Normal [facility] Comment on above: Performed By: #### L 100.0100, L501.2450, L500.4050 #### [facility] [address] [place], [address] OVALOCYTE 2+ Normal [facility] Comment on above: Performed By: #### L 100.0100, L501.2450, L500.4050 #### [facility] [address] [place], [address] SCHISTOCYTES 1+ Normal [facility] Comment on above: Performed By: #### L 100.0100, L501.2450, L500.4050 #### [facility] [address] [place], [address] TEAR DROP 1+ Normal [facility] Comment on above: Performed By: #### L 100.0100, L501.2450, L500.4050 #### [facility] [address] [place], [address] PLT EST ADEQUATE Normal ADEQ [facility] Comment on above: Performed By: #### L 100.0100, L501.2450, L500.4050 #### [facility] [address] [place], [address] SMEAR COMMENT SCANNED Normal [facility] Comment on above: Performed By: #### L 100.0100, L501.2450, L500.4050 #### [facility] [address] [place], [address] CNPNon 12-11-2023 CNPN Normal [facility] Metabolic [facility] ilon 12-11-2023 Albumin [Mass/Vol] 3.6 g/dL Normal 3.2-5.0 [facility] Comment on above: Performed By: #### L 100.0100, L501.2450, L500.4050 #### [facility] [address] [place], [address] Albumin/Globulin [Mass ratio] 1.1 {ratio} Normal 0.9-2.4 [facility] Comment on above: Performed By: #### L 100.0100, L501.2450, L500.4050 #### [facility] [address] [place], [address] ALK P 89 U/L Normal 45-117 [facility] Comment on above: Performed By: #### L 100.0100, L501.2450, L500.4050 #### [facility] [address] [place], [address] ALT [Catalytic activity/Vol] 36 U/L Normal 16-61 [facility] Comment on above: Performed By: #### L 100.0100, L501.2450, L500.4050 #### [facility] [address] [place], [address] AST [Catalytic activity/Vol] 23 U/L Normal 15-37 [facility] Comment on above: Performed By: #### L 100.0100, L501.2450, L500.4050 #### [facility] [address] [place], [address] Bilirubin [Mass/Vol] 0.50 mg/dL Normal 0.20-1.00 [facility] Comment on above: Result Comment: For patients on eltrombopag therapy, use of Dimension Roberts TBIL is not recommended. Performed By: #### L 100.0100, L501.2450, L500.4050 #### [facility] [address] [place], [address] BUN/CRE 23.1 RATIO High 10-20 [facility] Comment on above: Performed By: #### L 100.0100, L501.2450, L500.4050 #### [facility] [address] [place], [address] CA,Total 9.4 mg/dL Normal 8.5-10.1 [facility] Comment on above: Performed By: #### L 100.0100, L501.2450, L500.4050 #### [facility] [address] [place], [address] Chloride [Moles/Vol] 107 mmol/L Normal 98-107 [facility] Comment on above: Performed By: #### L 100.0100, L501.2450, L500.4050 #### [facility] [address] [place], [address] CO2 [Moles/Vol] 27.0 mmol/L Normal 21.0-32.0 [facility] Comment on above: Performed By: #### L 100.0100, L501.2450, L500.4050 #### [facility] [address] [place], [address] Creatinine [Mass/Vol] 0.95 mg/dL Normal 0.70-1.30 [facility] Comment on above: Result Comment: The validity of the calculated GFR GFRAA in patients over 70 years has not been determined. Clinical correlation is essential. Performed By: #### L 100.0100, L501.2450, L500.4050 #### [facility] [address] [place], [address] ECRCL 70.00 ml/min Normal [facility] Comment on above: Performed By: #### L 100.0100, L501.2450, L500.4050 #### [facility] [address] [place], [address] EST GFR - AA 100 mL/min Normal >60 [facility] Comment on above: Result Comment: Afri can [place] GFR Calc Performed By: #### L 100.0100, L501.2450, L500.4050 #### [facility] [address] [place], [address] GAP 5 Normal 5-15 [facility] Comment on above: Performed By: #### L 100.0100, L501.2450, L500.4050 #### [facility] [address] [place], [address] GFR/1.73 sq M.predicted among non-blacks MDRD (S/P/Bld) [Vol rate/Area] 83 mL/min/{1.73_m2} Normal >60 [facility] Comment on above: Result Comment: Non- GFR Calc Performed By: #### L 100.0100, L501.2450, L500.4050 #### [facility] [address] [place], [address] Globulin (S) [Mass/Vol] 3.4 g/dL Normal 2.2-4.2 [facility] Comment on above: Performed By: #### L 100.0100, L501.2450, L500.4050 #### [facility] [address] [place], [address] Glucose [Mass/Vol] 104 mg/dL Normal 74-106 [facility] Comment on above: Result Comment: Fast ing Glucose result from 100 to 125 mg/dL suggests IMPAIRED HOMEOSTASIS per A.D.A. criteria. Performed By: #### L 100.0100, L501.2450, L500.4050 #### [facility] [address] [place], [address] Potassium [Moles/Vol] 3.8 mmol/L Normal 3.5-5.1 [facility] Comment on above: Performed By: #### L 100.0100, L501.2450, L500.4050 #### [facility] [address] [place], [address] Sodium [Moles/Vol] 139 mmol/L Normal 136-145 [facility] Comment on above: Performed By: #### L 100.0100, L501.2450, L500.4050 #### [facility] [address] [place], [address] T PROT 7.0 g/dL Normal 6.4-8.2 [facility] Comment on above: Performed By: #### L 100.0100, L501.2450, L500.4050 #### [facility] [address] [place], [address] Urea nitrogen [Mass/Vol] 22 mg/dL High 7-18 [facility] Comment on above: Performed By: #### L 100.0100, L501.2450, L500.4050 #### [facility] [address] [place], [address] Emergency Department Summary on 12-11-[address] [facility] [address] [place] [address] Emergency Department Summary 12/11/23 MR#: [id number] Acct: [id number] Name: LUTHER CASTILLO II Rep #: [id number] : 1955 68 From: Rubén Liu DO [...] following commands knew that he was at [facility] year is 2023 Skin: Warm, dry, [...] I called (more content not included)... Normal [facility] Lipaseon 12-11-2023 Lipase [Catalytic activity/Vol] 25 U/L Normal 13-75 [facility] Comment on above: Result Comment: Roger abdul note: LIPASE revised reference range effective 22. New Lipase methodology. Expected to produce lower values than the previous assay method. NEW Reference Range: 13 - 75 U/L Performed By: #### B TS, L300.4310, L300.3900 #### [facility] [address] [place], [address] Urinalysis, Completeon 12-10 BACTERIA 0 SEEN Normal None Seen [facility] Comment on above: Order Comment: CLEAN CATCH Performed By: #### L 400.0001 #### [facility] [address] [place], [address] EPI,SQUAMOUS 0 SEEN Normal 0-5 [facility] Comment on above: Order Comment: CLEAN CATCH Performed By: #### L 400.0001 #### [facility] [address] [place], [address] Mucus Ql (Urine sed) 0 SEEN Normal [facility] Comment on above: Order Comment: CLEAN CATCH Performed By: #### L 400.0001 #### [facility] [address] [place], [address] RBC 0 SEEN Normal 0-5 [facility] Comment on above: Order Comment: CLEAN CATCH Performed By: #### L 400.0001 #### [facility] [address] [place], [address] WBC 0 SEEN Normal 0-5 [facility] Comment on above: Order Comment: CLEAN CATCH Performed By: #### L 400.0001 #### [facility] [address] [place], [address] CT ABD/PEL WO IVCONon 2023 CT ABD/PEL WO IVCON Normal [facility] CT Abdomen and Pelvis WO con traston 12-10-2023 * * *Final Report* * * DATE OF EXAM: Dec 10 2023 3:53PM [facility] 0531 - CT ABD/PEL WO IVCON / [...] (DLP) for this visit = 489 (accession [id number]), 1008 (accession [id number]) mGy*cm. CT Dose Reduction Employed: Automated exposure control(AEC) and iterative recon COMPARISON: Whole-body nuclear medicine bone scan 08/24/2021, chest radiograph 06/11/2023 RESULT: Player Services Representative/topogram: Frontal and lateral images. Bowel gas pattern [...] encroachment lumbar spine DIVISION OF RADIOLOGY Provider, [facility] - 12/10/2023 * * *Final Report* * * DATE OF EXAM: Dec 10 2023 3:53PM [facility] 0531 - CT ABD/PEL WO IVCON / [...] (DLP) for this visit = 489 (accession [id number]), 1008 (accession [id number]) mGy*cm. CT Dose Reduction Employed: Automated exposure control(AEC) and iterative recon COMPARISON: Whole-body nuclear medicine bone scan 08/24/2021, chest radiograph 06/11/2023 RESULT: Player Services Representative/topogram: Frontal and lateral images. Bowel gas pattern [...] having multilevel central and foraminal degenerative encroachment Drycleaner: APRIL Transcribe Date/Time: Dec 10 2023 4:00P Dictated by : MELONIE TEMPLETON MD This examination was interpreted and the report reviewed and electronically signed by: MELONIE TEMPLETON MD on Dec 10 2023 4:46PM EST [facility] Radiology Study observation (narrative) [facility] CT LUMBAR SPINE W IVCONon CT LUMBAR SPINE W IVCON Normal [facility] CT Lumbar spine W contrast I Von 12-10-2023 * * *Final Report* * * DATE OF EXAM: Dec 10 2023 3:55PM [facility] 0012 - CT LUMBAR SPINE W IVCON [...] (DLP) for this visit = 489 (accession [id number]), 1008 (accession [id number]) mGy*cm. CT Dose Reduction Employed: Automated exposure control(AEC) and iterative recon COMPARISON: Whole-body nuclear medicine bone scan 08/24/2021, chest radiograph 06/11/2023 RESULT: Player Services Representative/topogram: Frontal and lateral images. Bowel gas pattern [...] encroachment lumbar spine DIVISION OF RADIOLOGY Provider, [facility] - 12/10/2023 * * *Final Report* * * DATE OF EXAM: Dec 10 2023 3:55PM [facility] 0012 - CT LUMBAR SPINE W IVCON [...] (DLP) for this visit = 489 (accession [id number]), 1008 (accession [id number]) mGy*cm. CT Dose Reduction Employed: Automated exposure control(AEC) and iterative recon COMPARISON: Whole-body nuclear medicine bone scan 08/24/2021, chest radiograph 06/11/2023 RESULT: Player Services Representative/topogram: Frontal and lateral images. Bowel gas pattern [...] having multilevel central and foraminal degenerative encroachment Drycleaner: APRIL Transcribe Date/Time: Dec 10 2023 4:00P Dictated by : MELONIE TEMPLETON MD This examination was interpreted and the report reviewed and electronically signed by: MELONIE TEMPLETON MD on Dec 10 2023 4:46PM EST [facility] Radiology Study observation (narrative) [facility] No Panel Informationon 12-09 IMPRESSION: Abdomen and [...] having multilevel central and foraminal degenerative encroachment Drycleaner: [facility] Transcribe Date/Time: Dec 10 2023 4:00P Dictated by : MELONIE TEMPLETON MD This examination was interpreted and the report reviewed and electronically signed by: MELONIE TEMPLETON MD on Dec 10 2023 4:46PM [facility] DIVISION OF RADIOLOGY No Panel InformationOrdered By: Ccf Provider on 12-10-2023 [facility] CNOVon 12-02-2023 CNOV Normal [facility] Basic metabolic 2000 panelon 11-19-2023 Anion gap [Moles/Vol] 12 mmol/L Normal 8-15 [facility] Comment on above: Order Comment: Speci men Type: BLOOD SPECIMENOrdering Facility: [facility] Address: [address] [place] [address] Performed By: #### 2 4321-2 ####[facility] HOSPITALANGELICAShireen [id number] [place] [address] [place] Calcium [Mass/Vol] 9.2 mg/dL Normal 8.5-10.2 [facility] Comment on above: Order Comment: Speci men Type: BLOOD SPECIMENOrdering Facility: [facility] Address: [address] [place] [address] Performed By: #### 2 4321-2 ####[facility] HOSPITALANGELICALIA [id number] [place] [address] [place] Chloride [Moles/Vol] 102 mmol/L Normal 98-107 [facility] Comment on above: Order Comment: Speci men Type: BLOOD SPECIMENOrdering Facility: [facility] Address: [address] [place] [address] Performed By: #### 2 4321-2 ####[facility]IAL[facility]AH HOSPITALANGELICALIA [id number] [place] [address] [place] CO2 [Moles/Vol] 24 mmol/L Normal 22-30 [facility] Comment on above: Order Comment: Speci men Type: BLOOD SPECIMENOrdering Facility: [facility] Address: [address] [place] [address] Performed By: #### 2 4321-2 ####[facility] [id number] [place] [address] [place] Creatinine [Mass/Vol] 1.03 mg/dL Normal 0.73-1.22 [facility] Comment on above: Order Comment: Speci hal Type: BLOOD SPECIMENOrdering Facility: [facility] Address: [address] [place] [address] Performed By: #### 2 4321-2 ####[facility] [id number] [place] [address] [place] Creatinine and Glomerular filtration rate.predicted panel (S/P/Bld) 78 mL/min/1.73m??? Normal >=60 [facility] Comment on above: Order Comment: [facility] Type: BLOOD SPECIMENOrdering Facility: [facility] Address: [address] [place] [address] Result Comment: Beth mated Glomerular Filtration Rate [...] actual GFR. Performed By: #### 2 4321-2 ####[facility] [id number] [place] [address] [place] Glucose [Mass/Vol] 101 mg/dL High 74-99 [facility] Comment on above: Order Comment: Speci men Type: BLOOD SPECIMENOrdering Facility: [facility] Address: [address] [place] [address] Result Comment: The [place] Diabetes Association (ADA) provides guidance for cutoff [...] Standards of Medical Care in Diabetes 2016, [place] Diabetes Association. Diabetes Care. 2016.39(Suppl 1). Performed By: #### 2 4321-2 ####[facility] [id number] [place] [address] [place] Potassium [Moles/Vol] 4.0 mmol/L Normal 3.7-5.1 [facility] Comment on above: Order Comment: Speci men Type: BLOOD SPECIMENOrdering Facility: [facility] Address: [address] [place] [address] Performed By: #### 2 4321-2 ####[facility] [id number] [place] [address] [place] Sodium [Moles/Vol] 138 mmol/L Normal 136-144 [facility] Comment on above: Order Comment: Bassam hong Type: BLOOD SPECIMENOrdering Facility: [facility] Address: [address] [place] [address] Performed By: #### 2 4321-2 ####[facility] [id number] [place] [address] [place] Urea nitrogen [Mass/Vol] 18 mg/dL Normal 9-24 [facility] Comment on above: Order Comment: Speci men Type: BLOOD SPECIMENOrdering Facility: [facility] Address: [address] [place] [address] Performed By: #### 2 4321-2 ####[facility] [id number] [place] [address] [place] CBC W Auto Differential pane l (Bld)on 11-19-2023 Basophils (Bld) [#/Vol] 10*3/uL Normal <0.11 [facility] Comment on above: Order Comment: Speci men Type: BLOOD SPECIMENOrdering Facility: [facility] Address: [address] [place] [address] Performed By: #### 5 7021-8 ####[facility] MILLWNCLIA [id number] [place] [address] [place] Basophils/100 WBC (Bld) 0.2 % Normal [facility] Comment on above: Order Comment: Speci men Type: BLOOD SPECIMENOrdering Facility: [facility] Address: [address] [place] [address] Performed By: #### 5 7021-8 ####[facility] HOSPITALWNCLIA [id number] [place] [address] [place] Differential cell count method Nom (Bld) Auto Normal [facility] Comment on above: Order Comment: Speci men Type: BLOOD SPECIMENOrdering Facility: [facility] Address: [address] [place] [address] Performed By: #### 5 7021-8 ####[facility] MILLWNCLIA [id number] [place] [address] [place] Eosinophils (Bld) [#/Vol] 0.22 10*3/uL Normal <0.46 [facility] Comment on above: Order Comment: Speci men Type: BLOOD SPECIMENOrdering Facility: [facility] Address: [address] [place] [address] Performed By: #### 5 7021-8 ####[facility] MILLTOWNCLIA [id number] [place] [address] [place] Eosinophils/100 WBC (Bld) 3.9 % Normal [facility] Comment on above: Order Comment: Speci men Type: BLOOD SPECIMENOrdering Facility: [facility] Address: [address] [place] [address] Performed By: #### 5 7021-8 ####[facility] HOSPITALNCLIA [id number] [place] [address] [place] Erythrocyte distribution width (RBC) [Ratio] 20.5 % High 11.5-15.0 [facility] Comment on above: Order Comment: Speci men Type: BLOOD SPECIMENOrdering Facility: [facility] Address: [address] [place] [address] Performed By: #### 5 7021-8 ####[facility] [id number] [place] [address] [place] Hematocrit (Bld) [Volume fraction] 31.8 % Low 39.0-51.0 [facility] Comment on above: Order Comment: Speci men Type: BLOOD SPECIMENOrdering Facility: [facility] Address: [address] [place] [address] Performed By: #### 5 7021-8 ####[facility] [id number] [place] [address] [place] Hemoglobin (Bld) [Mass/Vol] 9.7 g/dL Low 13.0-17.0 [facility] Comment on above: Order Comment: Speci men Type: BLOOD SPECIMENOrdering Facility: [facility] Address: [address] [place] [address] Performed By: #### 5 7021-8 ####[facility] [id number] [place] [address] [place] Immature granulocytes (Bld) [#/Vol] 10*3/uL Normal <0.10 [facility] Comment on above: Order Comment: Speci men Type: BLOOD SPECIMENOrdering Facility: [facility] Address: [address] [place] [address] Performed By: #### 5 7021-8 ####[facility]OSPITALNCSALT [facility] [id number] [place] [address] [place] Immature granulocytes/100 WBC (Bld) 0.4 % Normal [facility] Comment on above: Order Comment: Speci men Type: BLOOD SPECIMENOrdering Facility: [facility] Address: [address] [place] [address] Performed By: #### 5 7021-8 ####[facility]ENTERA [id number] [place] [address] [place] Lymphocytes (Bld) [#/Vol] 2.13 10*3/uL Normal 1.00-4.00 [facility] Comment on above: Order Comment: Speci men Type: BLOOD SPECIMENOrdering Facility: [facility] Address: [address] [place] [address] Performed By: #### 5 7021-8 ####[facility] [id number] [place] [address] [place] Lymphocytes/100 WBC (Bld) 37.6 % Normal [facility] Comment on above: Order Comment: Speci men Type: BLOOD SPECIMENOrdering Facility: [facility] Address: [address] [place] [address] Performed By: #### 5 7021-8 ####[facility]OSPITALNCSALT [facility] [id number] [place] [address] [place] MCH (RBC) [Entitic mass] 24.7 pg Low 26.0-34.0 [facility] Comment on above: Order Comment: Speci men Type: BLOOD SPECIMENOrdering Facility: [facility] Address: [address] [place], [place] [address] Performed By: #### 5 7021-8 ####[facility] [id number] [place] [address] [place] MCHC (RBC) [Mass/Vol] 30.5 g/dL Normal 30.5-36.0 [facility] Comment on above: Order Comment: Speci men Type: BLOOD SPECIMENOrdering Facility: [facility] Address: [address] [place] [address] Performed By: #### 5 7021-8 ####[facility] BIENVENIDOESTHER [id number] [place] [address] [place] MCV (RBC) [Entitic vol] 80.9 fL Normal 80.0-100.0 [facility] Comment on above: Order Comment: Speci men Type: BLOOD SPECIMENOrdering Facility: [facility] Address: [address] [place] [address] Performed By: #### 5 7021-8 ####[facility] HOSPITALNCShireen [id number] [place] [address] [place] Monocytes (Bld) [#/Vol] 0.44 10*3/uL Normal <0.87 [facility] Comment on above: Order Comment: Speci men Type: BLOOD SPECIMENOrdering Facility: [facility] Address: [address] [place] [address] Performed By: #### 5 7021-8 ####[facility] HOSPITALNCA [id number] [place] [address] [place] Monocytes/100 WBC (Bld) 7.8 % Normal [facility] Comment on above: Order Comment: Speci men Type: BLOOD SPECIMENOrdering Facility: [facility] Address: [address] [place] [address] Performed By: #### 5 7021-8 ####[facility] [id number] [place] [address] [place] Neutrophils (Bld) [#/Vol] 2.85 10*3/uL Normal 1.45-7.50 [facility] Comment on above: Order Comment: Speci men Type: BLOOD SPECIMENOrdering Facility: [facility] Address: [address] [place] [address] Performed By: #### 5 7021-8 ####[facility] BIENVENIDOWANGELICALIA [id number] [place] [address] [place] Neutrophils/100 WBC (Bld) 50.1 % Normal [facility] Comment on above: Order Comment: Speci men Type: BLOOD SPECIMENOrdering Facility: [facility] Address: [address] [place] [address] Performed By: #### 5 7021-8 ####[facility]FAIRHILLLIA [id number] [place] [address] [place] Nucleated RBC (Bld) [#/Vol] 10*3/uL Normal <0.01 [facility] Comment on above: Order Comment: Speci men Type: BLOOD SPECIMENOrdering Facility: [facility] Address: [address] [place] [address] Performed By: #### 5 7021-8 ####[facility] [id number] [place] [address] [place] Nucleated RBC/100 WBC (Bld) [Ratio] 0.0 /100 WBC Normal [facility] Comment on above: Order Comment: Speci men Type: BLOOD SPECIMENOrdering Facility: [facility] Address: [address] [place] [address] Performed By: #### 5 7021-8 ####[facility] [id number] [place] [address] [place] Platelet mean volume (Bld) [Entitic vol] 8.5 fL Low 9.0-12.7 [facility] Comment on above: Order Comment: Speci men Type: BLOOD SPECIMENOrdering Facility: [facility] Address: [address] [place] [address] Performed By: #### 5 7021-8 ####[facility]IAL[facility] HOSPITALNCLI [id number] [place] [address] [place] Platelets (Bld) [#/Vol] 196 10*3/uL Normal 150-400 [facility] Comment on above: Order Comment: Speci men Type: BLOOD SPECIMENOrdering Facility: [facility] Address: [address] [place] [address] Performed By: #### 5 7021-8 ####[facility] HOSPITALNCLIA [id number] [place] [address] [place] RBC (Bld) [#/Vol] 3.93 10*6/uL Low 4.20-6.00 [facility] Comment on above: Order Comment: Speci men Type: BLOOD SPECIMENOrdering Facility: [facility] Address: [address] [place] [address] Performed By: #### 5 7021-8 ####[facility] HOSPITALNCLIA [id number] [place] [address] [place] WBC (Bld) [#/Vol] 5.67 10*3/uL Normal 3.70-11.00 [facility] Comment on above: Order Comment: Speci men Type: BLOOD SPECIMENOrdering Facility: [facility] Address: [address] [place] [address] Performed By: #### 5 7021-8 ####[facility] HOSPITALNCLIA [id number] [place] [address] [place] Ferritin SerPl-mCncon 2023 Ferritin [Mass/Vol] 670.0 ng/mL High 30.3-565.7 [facility] Comment on above: Order Comment: Speci men Type: BLOOD SPECIMENOrdering Facility: [facility] Address: [address] [place] [address] Performed By: #### 2 132-9, 82953-7, 2276-4 ####[facility] LABCLIA [id number] [facility] [id number] [place] [address] [place] Iron [employer] Iron binding capaci ty panelon 11-19-2023 Iron [Mass/Vol] 171 ug/dL Normal 41-186 [facility] Comment on above: Order Comment: Speci men Type: BLOOD SPECIMENOrdering Facility: [facility] Address: [address] [place] [address] Performed By: #### 2 132-9, 23446-9, 2276-4 ####[facility] LABCLIA [id number] [place] [address] [place] Iron binding capacity [Mass/Vol] 271 ug/dL Normal 232-386 [facility] Comment on above: Order Comment: Speci men Type: BLOOD SPECIMENOrdering Facility: [facility] Address: [address] [place] [address] Performed By: #### 2 132-9, 05054-5, 2276-4 ####[facility] LABIA [id number] [place] [address] [place] Iron/TIBC [Molar ratio] 63.1 % High 15.0-57.0 [facility] Comment on above: Order Comment: Speci men Type: BLOOD SPECIMENOrdering Facility: [facility] Address: [address] [place] [address] Performed By: #### 2 132-9, 87032-9, 2276-4 ####[facility] LABIA [id number] [place] [id number] [place] PSA SerPl-ncon 11-19-2023 Prostate specific Ag [Mass/Vol] ng/mL Normal <2.60 [facility] Comment on above: Order Comment: Speci men Type: BLOOD SPECIMENOrdering Facility: [facility] Address: [address] [place] [address] Result Comment: Tota l PSA test methodology used is the Electrochemiluminescence Immunoassay by [employer]. Total PSA values by differing methodologies cannot be interchanged. Performed By: #### 2 857-1 ####[facility] LABCLIA [id number] [place] [id number] [place] Vit B12 SerPl-ncon 11-18- 024 Cobalamin (Vitamin B12) [Mass/Vol] 662 pg/mL Normal 232-1245 [facility] Comment on above: Order Comment: Speci men Type: BLOOD SPECIMENOrdering Facility: [facility] Address: [address] [place] [address] Performed By: #### 2 132-9, 37591-5, 2276-4 ####[facility] LABCLIA [id number] [place] [address] [place] NM CARDIAC PERF STRESS/EXERC ISEon 11-12-2023 NM CARDIAC PERF STRESS/EXERCISE * * *Final Report* * * DATE OF EXAM: Nov 12 2023 10:39AM DOMENIC 0004 - [place] CARDIAC PERF STRESS/EXERCISE / PROCEDURE REASON: multiple diagnoses * * * * Physician Interpretation * * * * Stress Service Planner Report: [facility] Date of service: 11/12/2023 9:07:22 AM [...] later. See administered radiotracer and doses below. [facility] Date of service: 11/12/2023 9:07:22 AM [...] Final * * * Stress ECG Report: [facility] Date of service: 11/12/2023 9:07:22 AM Ordering physician: DORCAS CHAMPAGNE irrigation specialist: Marily Peoples Magistrate: Sahara Oswald Interpreting physician: Fannie Madrid MD [...] 160/82 mmHg. [place] product [place] was [address]. Medications: Last Used LIPITOR PREDNISONE FLOMAX CALCIUM [...] +---+---+---+ --- (more content not included)... Normal [facility] Heart Perfusion W multipl e states of exerciseon 11-12-2023 * * *Final Report* * * DATE OF EXAM: Nov 12 2023 10:39AM DOMENIC 0004 - [place] CARDIAC PERF STRESS/EXERCISE / PROCEDURE REASON: multiple diagnoses * * * * Physician Interpretation * * * * Stress Service Planner Report: [facility] Date of service: 11/12/2023 9:07:22 AM [...] later. See administered radiotracer and doses below. [facility] Date of service: 11/12/2023 9:07:22 AM [...] Final * * * Stress ECG Report: [facility] Date of service: 11/12/2023 9:07:22 AM Ordering physician: DORCAS CHAMPAGNE irrigation specialist: Marily Peoples Magistrate: Sahara Oswald Interpreting physician: Fannie Madrid MD [...] 160/82 mmHg. [place] double product achieved was [address]. Medications: Last Used LIPITOR PREDNISONE FLOMAX CALCIUM [...] 148 72 13.0 (more content not included)... [facility] Provider, Sabas Cunhahermann pierre Osborne - 11/12/2023 * * *Final Report* * * DATE OF EXAM: Nov 12 2023 10:39AM DOMENIC 0004 - NM CARDIAC PERF STRESS/EXERCISE / PROCEDURE REASON: multiple diagnoses * * * * Physician Interpretation * * * * Stress Service Planner Report: [facility] Date of service: 11/12/2023 9:07:22 AM Supervising physician: Fannie aMdrid MD PATIENT: Name: MR. LUTHER CASTILLO Age: [...] later. See administered radiotracer and doses below. [facility] Date of service: 11/12/2023 9:07:22 AM [...] Final * * * Stress ECG Report: [facility] Date of service: 11/12/2023 9:07:22 AM Ordering physician: DORCAS CHAMPAGNE irrigation specialist: Marily Peoples Magistrate: Sahara Oswald Interpreting physician: Fannie Madrid MD [...] 160/82 mmHg. The double product achieved was [address]. Medications: Last Used LIPITOR PREDNISONE FLOMAX CALCIUM [...] RPE METS +-----+-- (more content not included)... [facility] Radiology Study observation (narrative) [facility] NM Heart Perfusion W multipl e states of exerciseOrdered By: Ccf Provider on 11-12-2023 [facility] JOINon 11-11-2023 CNPN Telephone (CDLBME) -- LUTHER CASTILLO ([id number]) 1955 M Date Time Provider Department 11/11/23 [...] Fully Assessed Reason for Visit: Reminder Call [3607] Prescriptions as of 11/11/2023 - predniSONE (DELTASONE) [...] Encounter Status:Closed by SAHARA OSWALD on 11/11/23 [facility] Basic metabolic 2000 panelon 10-22-2023 Anion gap [Moles/Vol] 7 mmol/L Low 8-15 [facility] Comment on above: Order Comment: Speci men Type: BLOOD SPECIMENOrdering Facility: [facility] Address: [address] [place] [address] Performed By: #### 2 4321-2 ####[facility] NIKOLE HOANGCINDY [id number] [place] [id number] [place] Calcium [Mass/Vol] 8.8 mg/dL Normal 8.5-10.2 [facility] Comment on above: Order Comment: Speci men Type: BLOOD SPECIMENOrdering Facility: [facility] Address: [address] [place] [address] Performed By: #### 2 4321-2 ####[facility] BIENVENIDOMariannaNCKATERINA [id number] [place] [address] [place] Chloride [Moles/Vol] 105 mmol/L Normal 98-107 [facility] Comment on above: Order Comment: Speci men Type: BLOOD SPECIMENOrdering Facility: [facility] Address: [address] [place] [address] Performed By: #### 2 4321-2 ####[facility]ITALNCA [id number] [place] [address] [place] CO2 [Moles/Vol] 26 mmol/L Normal 22-30 [facility] Comment on above: Order Comment: Speci men Type: BLOOD SPECIMENOrdering Facility: [facility] Address: [address] [place] [address] Performed By: #### 2 4321-2 ####[facility]PITALNCLIA [id number] [place] [address] [place] Creatinine [Mass/Vol] 0.97 mg/dL Normal 0.73-1.22 [facility] Comment on above: Order Comment: Speci men Type: BLOOD SPECIMENOrdering Facility: [facility] Address: [address] [place] [address] Performed By: #### 2 4321-2 ####[facility]ITALNCLIA [id number] [place] [address] [place] Creatinine and Glomerular filtration rate.predicted panel (S/P/Bld) 84 mL/min/1.73m??? Normal >=60 [facility] Comment on above: Order Comment: Speci men Type: BLOOD SPECIMENOrdering Facility: [facility] Address: [address], [place] [address] Result Comment: Beth mated Glomerular Filtration Rate [...] actual GFR. Performed By: #### 2 4321-2 ####[facility]PITALANGELICASALT [facility] [id number] [place] [address] [place] Glucose [Mass/Vol] 94 mg/dL Normal 74-99 [facility] Comment on above: Order Comment: Bassam hong Type: BLOOD SPECIMENOrdering Facility: [facility] Address: [address] [place] [address] Result Comment: The [place] Diabetes Association (ADA) provides guidance for cutoff [...] Standards of Medical Care in Diabetes 2016, [place] [employer]. Diabetes Care. 2016.39(Suppl 1). Performed By: #### 2 4321-2 ####[facility] [id number] [place] [address] [place] Potassium [Moles/Vol] 3.7 mmol/L Normal 3.7-5.1 [facility] Comment on above: Order Comment: Bassam hong Type: BLOOD SPECIMENOrdering Facility: [facility] Address: [address] [place] [address] Performed By: #### 2 4321-2 ####[facility] [id number] [place] [address] [place] Sodium [Moles/Vol] 138 mmol/L Normal 136-144 [facility] Comment on above: Order Comment: Speci men Type: BLOOD SPECIMENOrdering Facility: [facility] Address: [address] [place] [address] Performed By: #### 2 4321-2 ####[facility] HOSPITALNCKATERINA [id number] [place] [address] [place] Urea nitrogen [Mass/Vol] 27 mg/dL High 9-24 [facility] Comment on above: Order Comment: Speci men Type: BLOOD SPECIMENOrdering Facility: [facility] Address: [address] [place] [address] Performed By: #### 2 4321-2 ####[facility] HOSPITALWNCLIA [id number] [place] [address] [place] CBC W Auto Differential pane l (Bld)on 10-22-2023 Basophils (Bld) [#/Vol] 10*3/uL Normal <0.11 [facility] Comment on above: Order Comment: Speci men Type: BLOOD SPECIMENOrdering Facility: [facility] Address: [address] [place] [address] Performed By: #### 5 7021-8 ####[facility]ITALNCLIA [id number] [place] [address] [place] Basophils/100 WBC (Bld) 0.2 % Normal [facility] Comment on above: Order Comment: Speci men Type: BLOOD SPECIMENOrdering Facility: [facility] Address: [address] [place] [address] Performed By: #### 5 7021-8 ####[facility]PITALNCLIA [id number] [place] [address] [place] Differential cell count method Nom (Bld) Auto Normal [facility] Comment on above: Order Comment: Speci men Type: BLOOD SPECIMENOrdering Facility: [facility] Address: [address] [place] [address] Performed By: #### 5 7021-8 ####[facility]ITALANGELICASALT [facility] [id number] [place] [address] [place] Eosinophils (Bld) [#/Vol] 0.21 10*3/uL Normal <0.46 [facility] Comment on above: Order Comment: Speci men Type: BLOOD SPECIMENOrdering Facility: [facility] Address: [address] [place] [address] Performed By: #### 5 7021-8 ####[facility] [id number] [place] [address] [place] Eosinophils/100 WBC (Bld) 4.3 % Normal [facility] Comment on above: Order Comment: Speci men Type: BLOOD SPECIMENOrdering Facility: [facility] Address: [address] [place] [address] Performed By: #### 5 7021-8 ####[facility] [id number] [place] [address] [place] Erythrocyte distribution width (RBC) [Ratio] 20.2 % High 11.5-15.0 [facility] Comment on above: Order Comment: Speci men Type: BLOOD SPECIMENOrdering Facility: [facility] Address: [address] [place] [address] Performed By: #### 5 7021-8 ####[facility] [id number] [place] [address] [place] Hematocrit (Bld) [Volume fraction] 29.5 % Low 39.0-51.0 [facility] Comment on above: Order Comment: Speci men Type: BLOOD SPECIMENOrdering Facility: [facility] Address: [address] [place] [address] Performed By: #### 5 7021-8 ####[facility] HOSPITALWNCLIA [id number] [place] [address] [place] Hemoglobin (Bld) [Mass/Vol] 9.1 g/dL Low 13.0-17.0 [facility] Comment on above: Order Comment: Speci men Type: BLOOD SPECIMENOrdering Facility: [facility] Address: [address] [place] [address] Performed By: #### 5 7021-8 ####[facility]FAIRHILLLIA [id number] [place] [address] [place] Immature granulocytes (Bld) [#/Vol] 10*3/uL Normal <0.10 [facility] Comment on above: Order Comment: Speci men Type: BLOOD SPECIMENOrdering Facility: [facility] Address: [address] [place] [address] Performed By: #### 5 7021-8 ####[facility]FAIRHILLLIA [id number] [place] [address] [place] Immature granulocytes/100 WBC (Bld) 0.4 % Normal [facility] Comment on above: Order Comment: Speci men Type: BLOOD SPECIMENOrdering Facility: [facility] Address: [address] [place] [address] Performed By: #### 5 7021-8 ####[facility]-FAIRHILLLIA [id number] [place] [address] [place] Lymphocytes (Bld) [#/Vol] 2.01 10*3/uL Normal 1.00-4.00 [facility] Comment on above: Order Comment: Speci men Type: BLOOD SPECIMENOrdering Facility: [facility] Address: [address] [place] [address] Performed By: #### 5 7021-8 ####[facility]PITALNCLIA [id number] [place] [address] [place] Lymphocytes/100 WBC (Bld) 40.9 % Normal [facility] Comment on above: Order Comment: Speci men Type: BLOOD SPECIMENOrdering Facility: [facility] Address: [address] [place] [address] Performed By: #### 5 7021-8 ####[facility] [id number] [place] [address] [place] MCH (RBC) [Entitic mass] 24.7 pg Low 26.0-34.0 [facility] Comment on above: Order Comment: Speci men Type: BLOOD SPECIMENOrdering Facility: [facility] Address: [address] [place] [address] Performed By: #### 5 7021-8 ####[facility] [id number] [place] [address] [place] MCHC (RBC) [Mass/Vol] 30.8 g/dL Normal 30.5-36.0 [facility] Comment on above: Order Comment: Speci men Type: BLOOD SPECIMENOrdering Facility: [facility] Address: [address] [place] [address] Performed By: #### 5 7021-8 ####[facility] [id number] [place] [address] [place] MCV (RBC) [Entitic vol] 79.9 fL Low 80.0-100.0 [facility] Comment on above: Order Comment: Speci men Type: BLOOD SPECIMENOrdering Facility: [facility] Address: [address] [place], [place] [address] Performed By: #### 5 7021-8 ####[facility] [id number] [place] [address] [place] Monocytes (Bld) [#/Vol] 0.35 10*3/uL Normal <0.87 [facility] Comment on above: Order Comment: Speci men Type: BLOOD SPECIMENOrdering Facility: [facility] Address: [address] [place] [address] Performed By: #### 5 7021-8 ####[facility] BIENVENIDOWANGELICALIA [id number] [place] [address] [place] Monocytes/100 WBC (Bld) 7.1 % Normal [facility] Comment on above: Order Comment: Speci men Type: BLOOD SPECIMENOrdering Facility: [facility] Address: [address] [place] [address] Performed By: #### 5 7021-8 ####[facility]PITALNCLIA [id number] [place] [address] [place] Neutrophils (Bld) [#/Vol] 2.31 10*3/uL Normal 1.45-7.50 [facility] Comment on above: Order Comment: Speci men Type: BLOOD SPECIMENOrdering Facility: [facility] Address: [address] [place] [address] Performed By: #### 5 7021-8 ####[facility]HILLLIA [id number] [place] [address] [place] Neutrophils/100 WBC (Bld) 47.1 % Normal [facility] Comment on above: Order Comment: Speci men Type: BLOOD SPECIMENOrdering Facility: [facility] Address: [address] [place] [address] Performed By: #### 5 7021-8 ####[facility] BIENVENIDOPLYMOUTH MEETINGNCLIA [id number] [place] [id number] [place] Nucleated RBC (Bld) [#/Vol] 10*3/uL Normal <0.01 [facility] Comment on above: Order Comment: Speci men Type: BLOOD SPECIMENOrdering Facility: [facility] Address: [address] [place] [address] Performed By: #### 5 7021-8 ####[facility]PITALWNCLIA [id number] [place] [address] [place] Nucleated RBC/100 WBC (Bld) [Ratio] 0.0 /100 WBC Normal [facility] Comment on above: Order Comment: Speci men Type: BLOOD SPECIMENOrdering Facility: [facility] Address: [address] [place] [address] Performed By: #### 5 7021-8 ####[facility] BIENVENIDOESTHER [id number] [place] [address] [place] Platelet mean volume (Bld) [Entitic vol] 8.6 fL Low 9.0-12.7 [facility] Comment on above: Order Comment: Speci men Type: BLOOD SPECIMENOrdering Facility: [facility] Address: [address] [place] [address] Performed By: #### 5 7021-8 ####[facility] HOSPITALANGELICAA [id number] [place] [address] [place] Platelets (Bld) [#/Vol] 178 10*3/uL Normal 150-400 [facility] Comment on above: Order Comment: Speci men Type: BLOOD SPECIMENOrdering Facility: [facility] Address: [address] [place] [address] Performed By: #### 5 7021-8 ####[facility] BIENVENIDOPLYMOUTH MEETINGANGELICALIA [id number] [place] [address] [place] RBC (Bld) [#/Vol] 3.69 10*6/uL Low 4.20-6.00 [facility] Comment on above: Order Comment: Speci men Type: BLOOD SPECIMENOrdering Facility: [facility] Address: [address] [place] [address] Performed By: #### 5 7021-8 ####[facility]OSPITALNCLIA [id number] [place] [address] [place] WBC (Bld) [#/Vol] 4.91 10*3/uL Normal 3.70-11.00 [facility] Comment on above: Order Comment: Speci men Type: BLOOD SPECIMENOrdering Facility: [facility] Address: [address] [place] [address] Performed By: #### 5 7021-8 ####[facility] NIKOLE [facility] HEALTHA [id number] [place] [address] [place] CNOVSPon 10-22-2023 CNOVSP Normal [facility] PSA SerPl-mCncon 10-22-2023 Prostate specific Ag [Mass/Vol] ng/mL Normal <2.60 [facility] Comment on above: Order Comment: Speci men Type: BLOOD SPECIMENOrdering Facility: [facility] Address: [address] [place] [address] Result Comment: Tota l PSA test methodology used is the Electrochemiluminescence Immunoassay by [employer]. Total PSA values by differing methodologies cannot be interchanged. Performed By: #### 2 857-1 ####[facility] LABCLIA [id number] [address] OF [place] CNOVon 10-16-2023 CNOV Office Visit (JEFF ) -- LUTHER CASTILLO ([id number]) 1955 M Date Time Provider Department 10/16/23 2:20 PM DORCAS CHAMPAGNE During your visit today, we recorded the following information about you: Pulse Blood pressure Weight Height 98/minute 118/64 70 kg 1.702 m Dorcas Champagne DO 10/16/2023 5:25 PM [facility] SECTION OF REGIONAL CARDIOLOGY [facility] OUTPATIENT VISIT DATE October 16, 2023 PRIMARY CARE PHYSICIAN: Arsalan Ocampo [address] [place] [address] HISTORY OF PRESENT ILLNESS: Mr. Castillo is [...] syncope and light-heade (more content not included)... [facility] 10-16-2023 [facility] Telephone (KartMe) -- LUTHER CASTILLO ([id number]) 1955 M Date Time Provider Department 10/16/23 [...] Encounter Status:Closed by GABI DOUGLAS on 10/16/23 [facility] Basic metabolic 2000 panelon 09-24-2023 Anion gap [Moles/Vol] 7 mmol/L Low 8-15 [facility] Comment on above: Order Comment: Speci men Type: BLOOD SPECIMENOrdering Facility: [facility] Address: [address] [place], [place] [address] Performed By: #### 2 4321-2 ####[facility] [id number] [place] [address] [place] Calcium [Mass/Vol] 8.8 mg/dL Normal 8.5-10.2 [facility] Comment on above: Order Comment: Speci men Type: BLOOD SPECIMENOrdering Facility: [facility] Address: [address] [place] [address] Performed By: #### 2 4321-2 ####[facility] [id number] [place] [address] [place] Chloride [Moles/Vol] 106 mmol/L Normal 98-107 [facility] Comment on above: Order Comment: Speci men Type: BLOOD SPECIMENOrdering Facility: [facility] Address: [address] [place] [address] Performed By: #### 2 4321-2 ####[facility] HOSPITALNCKATERIN [id number] [place] [address] [place] CO2 [Moles/Vol] 25 mmol/L Normal 22-30 [facility] Comment on above: Order Comment: Speci men Type: BLOOD SPECIMENOrdering Facility: [facility] Address: [address] [place] [address] Performed By: #### 2 4321-2 ####[facility]PITALNCSALT [facility] [id number] [address] [place] Creatinine [Mass/Vol] 1.00 mg/dL Normal 0.73-1.22 [facility] Comment on above: Order Comment: Speci men Type: BLOOD SPECIMENOrdering Facility: [facility] Address: [address] [place] [address] Performed By: #### 2 4321-2 ####[facility]ENTERA [id number] [address] OF [facility] Creatinine and Glomerular filtration rate.predicted panel (S/P/Bld) 81 mL/min/1.73m??? Normal >=60 [facility] Comment on above: Order Comment: Speci men Type: BLOOD SPECIMENOrdering Facility: [facility] Address: [address] [place] [address] Result Comment: Beth mated Glomerular Filtration Rate [...] Performed By: #### 2 4321-2 ####[facility] HOSPITALWNCLI [id number] [place] [id number] [place] Glucose [Mass/Vol] 99 mg/dL Normal 74-99 [facility] Comment on above: Order Comment: Speci men Type: BLOOD SPECIMENOrdering Facility: [facility] Address: [address] [place], [place] [address] Result Comment: The [place] [employer] (ADA) provides guidance for cutoff [...] Standards of Medical Care in Diabetes 2016, [place] [employer]. Diabetes Care. 2016.39(Suppl 1). Performed By: #### 2 4321-2 ####[facility] HOSPITALWNCLIA [id number] [place] [address] [place] Potassium [Moles/Vol] 4.1 mmol/L Normal 3.7-5.1 [facility] Comment on above: Order Comment: Jose Manueli men Type: BLOOD SPECIMENOrdering Facility: [facility] Address: [address] [place], [place] [address] Performed By: #### 2 4321-2 ####[facility] HOSPITALWNCLIA [id number] [place] [address] [place] Sodium [Moles/Vol] 138 mmol/L Normal 136-144 [facility] Comment on above: Order Comment: Jose Manueli men Type: BLOOD SPECIMENOrdering Facility: [facility] Address: [address] [place], [place] [address] Performed By: #### 2 4321-2 ####[facility] HOSPITALNCLIA [id number] [place] [address] [place] Urea nitrogen [Mass/Vol] 27 mg/dL High 9-24 [facility] Comment on above: Order Comment: Speci men Type: BLOOD SPECIMENOrdering Facility: [facility] Address: [address] [place] [address] Performed By: #### 2 4321-2 ####[facility] [id number] [place] [address] [place] CBC W Auto Differential pane l (Bld)on 09-24-2023 Basophils (Bld) [#/Vol] 10*3/uL Normal <0.11 [facility] Comment on above: Order Comment: Speci men Type: BLOOD SPECIMENOrdering Facility: [facility] Address: [address] [place] [address] Performed By: #### 5 7021-8 ####[facility] [id number] [place] [address] [place] Basophils/100 WBC (Bld) 0.4 % Normal [facility] Comment on above: Order Comment: Speci men Type: BLOOD SPECIMENOrdering Facility: [facility] Address: [address] [place] [address] Performed By: #### 5 7021-8 ####[facility] [id number] [place] [address] [place] Differential cell count method Nom (Bld) Auto Normal [facility] Comment on above: Order Comment: Speci men Type: BLOOD SPECIMENOrdering Facility: [facility] Address: [address] [place] [address] Performed By: #### 5 7021-8 ####[facility] [id number] [place] [address] [place] Eosinophils (Bld) [#/Vol] 0.18 10*3/uL Normal <0.46 [facility] Comment on above: Order Comment: Speci men Type: BLOOD SPECIMENOrdering Facility: [facility] Address: [address] [place] [address] Performed By: #### 5 7021-8 ####[facility] ANDREW [id number] [place] [address] [place] Eosinophils/100 WBC (Bld) 3.6 % Normal [facility] Comment on above: Order Comment: Speci men Type: BLOOD SPECIMENOrdering Facility: [facility] Address: [address] [place] [address] Performed By: #### 5 7021-8 ####[facility] BIENVENIDOPLYMOUTH MEETINGNCKATERINShireen [id number] [place] [address] [place] Erythrocyte distribution width (RBC) [Ratio] 20.3 % High 11.5-15.0 [facility] Comment on above: Order Comment: Speci men Type: BLOOD SPECIMENOrdering Facility: [facility] Address: [address] [place] [address] Performed By: #### 5 7021-8 ####[facility] BIENVENIDOPLYMOUTH MEETINGANGELICAMJ [id number] [place] [address] [place] Hematocrit (Bld) [Volume fraction] 31.2 % Low 39.0-51.0 [facility] Comment on above: Order Comment: Speci men Type: BLOOD SPECIMENOrdering Facility: [facility] Address: [address] [place] [address] Performed By: #### 5 7021-8 ####[facility] BIENVENIDOPLYMOUTH MEETINGNCLIA [id number] [place] [address] [place] Hemoglobin (Bld) [Mass/Vol] 9.6 g/dL Low 13.0-17.0 [facility] Comment on above: Order Comment: Speci men Type: BLOOD SPECIMENOrdering Facility: [facility] Address: [address] [place] [address] Performed By: #### 5 7021-8 ####[facility] MILLWNCLIA [id number] [place] [address] [place] Immature granulocytes (Bld) [#/Vol] 10*3/uL Normal <0.10 [facility] Comment on above: Order Comment: Speci men Type: BLOOD SPECIMENOrdering Facility: [facility] Address: [address] [place] [address] Performed By: #### 5 7021-8 ####[facility]ILL[facility] [id number] [place] [address] [place] Immature granulocytes/100 WBC (Bld) 0.4 % Normal [facility] Comment on above: Order Comment: Speci men Type: BLOOD SPECIMENOrdering Facility: [facility] Address: [address] [place] [address] Performed By: #### 5 7021-8 ####[facility] [id number] [place] [address] [place] Lymphocytes (Bld) [#/Vol] 2.08 10*3/uL Normal 1.00-4.00 [facility] Comment on above: Order Comment: Speci men Type: BLOOD SPECIMENOrdering Facility: [facility] Address: [address] [place] [address] Performed By: #### 5 7021-8 ####[facility] [id number] [place] [address] [place] Lymphocytes/100 WBC (Bld) 41.3 % Normal [facility] Comment on above: Order Comment: Speci men Type: BLOOD SPECIMENOrdering Facility: [facility] Address: [address] [place] [address] Performed By: #### 5 7021-8 ####[facility] [id number] [place] [address] [place] MCH (RBC) [Entitic mass] 24.7 pg Low 26.0-34.0 [facility] Comment on above: Order Comment: Speci men Type: BLOOD SPECIMENOrdering Facility: [facility] Address: [address] [place] [address] Performed By: #### 5 7021-8 ####[facility] [id number] [place] [address] [place] MCHC (RBC) [Mass/Vol] 30.8 g/dL Normal 30.5-36.0 [facility] Comment on above: Order Comment: Speci men Type: BLOOD SPECIMENOrdering Facility: [facility] Address: [address] [place] [address] Performed By: #### 5 7021-8 ####[facility] [id number] [place] [address] [place] MCV (RBC) [Entitic vol] 80.4 fL Normal 80.0-100.0 [facility] Comment on above: Order Comment: Speci men Type: BLOOD SPECIMENOrdering Facility: [facility] Address: [address] [place] [address] Performed By: #### 5 7021-8 ####[facility] [id number] [place] [address] [place] Monocytes (Bld) [#/Vol] 0.36 10*3/uL Normal <0.87 [facility] Comment on above: Order Comment: Speci men Type: BLOOD SPECIMENOrdering Facility: [facility] Address: [address] [place] [address] Performed By: #### 5 7021-8 ####[facility] [id number] [place] [address] [place] Monocytes/100 WBC (Bld) 7.1 % Normal [facility] Comment on above: Order Comment: Speci men Type: BLOOD SPECIMENOrdering Facility: [facility] Address: [address] [place] [address] Performed By: #### 5 7021-8 ####[facility]ILLLIA [id number] [place] [address] [place] Neutrophils (Bld) [#/Vol] 2.38 10*3/uL Normal 1.45-7.50 [facility] Comment on above: Order Comment: Speci men Type: BLOOD SPECIMENOrdering Facility: [facility] Address: [address] [place] [address] Performed By: #### 5 7021-8 ####[facility] [id number] [place] [address] [place] Neutrophils/100 WBC (Bld) 47.2 % Normal [facility] Comment on above: Order Comment: Speci men Type: BLOOD SPECIMENOrdering Facility: [facility] Address: [address] [place] [address] Performed By: #### 5 7021-8 ####[facility] [id number] [place] [address] [place] Nucleated RBC (Bld) [#/Vol] 10*3/uL Normal <0.01 [facility] Comment on above: Order Comment: Speci men Type: BLOOD SPECIMENOrdering Facility: [facility] Address: [address] [place] [address] Performed By: #### 5 7021-8 ####[facility] [id number] [place] [address] [place] Nucleated RBC/100 WBC (Bld) [Ratio] 0.0 /100 WBC Normal [facility] Comment on above: Order Comment: Speci men Type: BLOOD SPECIMENOrdering Facility: [facility] Address: [address] [place] [address] Performed By: #### 5 7021-8 ####[facility]ITALNCLIA [id number] [place] [address] [place] Platelet mean volume (Bld) [Entitic vol] 8.1 fL Low 9.0-12.7 [facility] Comment on above: Order Comment: Speci men Type: BLOOD SPECIMENOrdering Facility: [facility] Address: [address] [place] [address] Performed By: #### 5 7021-8 ####[facility] BIENVENIDOESTHER [id number] [place] [address] [place] Platelets (Bld) [#/Vol] 185 10*3/uL Normal 150-400 [facility] Comment on above: Order Comment: Speci men Type: BLOOD SPECIMENOrdering Facility: [facility] Address: [address] [place] [address] Performed By: #### 5 7021-8 ####[facility] HOSPITALANGELICAMJ [id number] [place] [address] [place] RBC (Bld) [#/Vol] 3.88 10*6/uL Low 4.20-6.00 [facility] Comment on above: Order Comment: Speci men Type: BLOOD SPECIMENOrdering Facility: [facility] Address: [address] [place] [address] Performed By: #### 5 7021-8 ####[facility] BIENVENIDOPLYMOUTH MEETINGANGELICAKATERINA [id number] [place] [address] [place] WBC (Bld) [#/Vol] 5.04 10*3/uL Normal 3.70-11.00 [facility] Comment on above: Order Comment: Speci men Type: BLOOD SPECIMENOrdering Facility: [facility] Address: [address] [place] [address] Performed By: #### 5 7021-8 ####[facility]IALEAH HOSPITALNCLIShireen [id number] [place] [id number] [place] EXERCISE STRESS ECG (WITHOUT IMAGING)on 06-17-2023 EXERCISE STRESS ECG (WITHOUT IMAGING) Stress Service Planner Report: Exercise Stress ECG (without Imaging) [facility] Date of service: 06/17/2023 10:22:25 AM Supervising physician: Lucian Alvarez MD PATIENT: Name: MR. LUTHER CASTILLO Age: 68 years Gender: M The supervising physician was in the department and immediately available. Final Stress ECG Report: Exercise Stress ECG (without Imaging) [facility] Date of service: 06/17/2023 10:22:25 AM Ordering physician: CATHERINE PERAZA irrigation specialist: Julieta Zhang Magistrate: Toma Lyles Interpreting physician: Lucian Alvarez MD [...] 140/60 mmHg. The double product achieved was [address]. Medications: Last Used PREDNISONE LIPITOR FLOMAX TAGAMET [...] (HRR): 11 bpm Rate Pressure Product (RPP): 58896 Vega Treadmill Score: 8.0 Stress Exercise Observations: [...] equation for determining estimated MET values for [facility] stress tests changed. Comparison of test results before and after that date may show a change in estimated MET values for peak/max exercise despite a test duration that is similar in length. The validity of the new FRIEND equation for exercise METS is endorsed by the [place] [employer]. Miky P, Jose LA, Ivania R, Reagan J, Chepe J. New Generalized Equation for Predicting Maximal Oxygen Uptake (from the Fitness Registry and the Importance of Exercise National Database). The [place] Journal of Cardiology. 2017;120(4):688-692). Final CC [employer] Medical Image : [id number] See Link below for Image Normal [facility] Christian 06-16-2023 CNPN Telephone (CDLBME) -- LUTHER CASTILLO ([id number]) 1955 M Date Time Provider Department 06/16/23 [...] Fully Assessed Reason for Visit: Reminder Call [[id number]] Prescriptions as of 06/16/2023 - predniSONE (DELTASONE) [...] Encounter Status:Closed by SAHARA OSWALD on 06/16/23 [facility] XR Chest PA and Lateralon IMPRESSION: Bibasilar atelectasis. Drycleaner: APRIL Transcribe Date/Time: Jun 11 2023 4:47P Dictated by : NIKKI EVANGELISTA MD This examination was interpreted and the report reviewed and electronically signed by: NIKKI EVANGELISTA MD on Jun 11 2023 4:47PM [facility] * * *Final Report* [...] in the spine. DIVISION OF RADIOLOGY Provider, [facility] - 06/11/2023 * * *Final Report* * [...] in the spine. IMPRESSION IMPRESSION: Bibasilar atelectasis. Drycleaner: APRIL Transcribe Date/Time: Jun 11 2023 4:47P Dictated by : NIKKI EVANGELISTA MD This examination was interpreted and the report reviewed and electronically signed by: NIKKI EVANGELISTA MD on Jun 11 2023 4:47PM EST [facility] Radiology Study observation (narrative) [facility] XR Chest PA and LateralOrder ed By: Ccf Provider on 06-11-2023 [facility] Basic metabolic 2000 panelon 06-05-2023 Anion gap [Moles/Vol] 7 mmol/L Low 9 - 18 mmol/L [facility] Calcium [Mass/Vol] 8.7 mg/dL 8.5 - 10. 2 mg/dL [facility] Chloride [Moles/Vol] 102 mmol/L 97 - 10 5 mmol/L [facility] CO2 [Moles/Vol] 28 mmol/L 22 - 30 mmol/L [facility] Creatinine [Mass/Vol] 1.05 mg/dL 0.73 - 1.22 mg/dL [facility] Estimated Glomerular Filtration Rate 76 mL/min/1.73m >=60 mL/min/1.73m [facility] Glucose [Mass/Vol] 93 mg/dL 74 - 99 mg/dL [facility] Potassium [Moles/Vol] 3.7 mmol/L 3.7 - 5.1 mmol/L [facility] Sodium [Moles/Vol] 137 mmol/L 136 - 144 mmol/L [facility] Urea nitrogen [Mass/Vol] 20 mg/dL 9 - 24 mg/dL [facility] XR FINGER 3RD DIGIT 3 VIEWS RIGHTon [...] 09/23/2022 3:18:15 PM Ordering Provider: ALEXIS Bhatt [facility] [place] CNOVon 04-26-2022 CNOV Office Visit (AKURFL ) -- LUTHER CASTILLO ([id number]) 1955 M Date Time Provider Department 04/26/22 10:45 AM SP MCKEON During your visit today, we recorded the following information about you: Respiration Weight Height 18/minute 69.4 kg 1.702 m Sp Mckeon DO 05/07/2022 2:46 PM Signed [facility]ly [facility] [place] [facility] LOCATION: [address] [place] [address] ESTABLISHED PATIENT PATIENT INFO: Luther Castillo 67 [...] B. PROSTATE, BIOPSY, RIGHT MID: Prostatic adenocarcinoma, [place] score 4+3=7 (Grade group 3), involving 90% of one core (10 mm tumor length). - Percentage of Rasheed pattern 4 = 90%. - Expansile cribriform morphology is present. C. PROSTATE, BIOPSY, RIGHT APEX: Prostatic adenocarcinoma, Rasheed score 3+4=7 (Grade group 2), involving 35% of one core (3 mm tumor length). - Percentage of [place] pattern 4 = 5%. - Cribriform morphology [...] (6.5 mm tumor length). - Percentage of [place] pattern 4 = 5%. - Cribriform morphology is absent. G. PROSTATE, BIOPSY, LEFT BASE: Prostatic adenocarcinoma, [place] score 3+3=6 (Grade group 1), involving 4% [...] 50.5 Lymph% (%) Date Value 02/12/2022 38.7 Ciales% (%) Date Value 02/12/2022 8.2 Eosin% (%) Date Value 05/28/2021 1.5 Baso% (%) Date Value 02/12/2022 0.5 Abs Neut (k/uL) Date Value 02/12/2022 2.89 Abs Ciales (k/uL) Date Value 02/12/2022 (more content not included)... Normal [facility] SURGICAL PATHOLOGYon 022 Addendum This addendum is iss ued to report the results of immunohistochemical stains. The original diagnoses remain unchanged. Immunohistochemical stain for Helicobacter pylori performed on the gastric biopsy is negative (Block A1). Laboratory Developed Test (LDT) Disclaimer: Performance characteristics of immunohistochemical, immunofluorescent and chromogenic in-situ hybridization tests have been determined by the performing laboratory within [facility]ology and Laboratory Medicine [place] ([facility], [facility], [facility] or [facility]) in a manner consistent with CLIA requirements. One or more of these tests have not been cleared or approved by the FDA. [facility] is regulated under CLIA as qualified to perform high-complexity testing. These tests are used for clinical purposes. They should not be regarded as investigational or for research. Positive and negative controls stain appropriately. [facility] Case Report Surgical Pathology R eport Case: [id number] Authorizing Provider: Lyn Mcgowan MD Collected: 02/27/2022 09:19 AM Ordering Location: Ambulatory Surgery Received: 02/27/2022 04:29 PM Pathologist: Tate Kirk MD Specimens: A) - ANTRUM (STOMACH) BIOPSY, Antral bx for H/H B) - ESOPHAGOGASTRIC JUNCTION BIOPSY [facility] FINAL DIAGNOSIS A. Stomach, antrum, biopsy: - Chronic inactive antral gastritis. - Immunohistochemistry for Helicobacter pylori will be reported in an addendum. B. Esophagogastric junction, biopsy: - Squamous epithelium with features of reflux. - Inflamed gastric cardia-type mucosa. - No evidence of intestinal metaplasia or dysplasia. [facility] Gross Description A. ANTRUM (STOMACH) BIOPSY Received in formalin is one piece of boyer, soft tissue measuring 0.6 x 0.3 x 0.1 cm. Totally submitted in one cassette. B. ESOPHAGOGASTRIC JUNCTION BIOPSY Received in formalin are two pieces of boyer, soft tissue aggregating to 0.7 x 0.2 x 0.1 cm. Totally submitted in one cassette. Gross examination performed at [facility], [address] [address] FFS 02/28/2022 12:17 AM [facility] Performing Lab Diagnostic interpret ation performed at [facility], [facility] [place] [id number] CLIA# [id number] County Manager: Misha Prater M.D. [facility] COLONOSCOPY DIAGNOSTICon [facility] EGD DIAGNOSTICon 02-27-2022 [facility] CNOVon 09-05-2021 CNOV Office Visit (AKURFL ) -- LUTHER CASTILLO ([id number]) 1955 M Date Time Provider Department 09/05/21 10:15 AM SP MCKEON During your visit today, we recorded the following information about you: Blood pressure Weight Height 113/60 69.4 kg 1.727 m Sp Mckeon DO 09/05/2021 10:48 AM Signed ?? [facility] [place] [facility] LOCATION: [address] [place] [address] ESTABLISHED PATIENT PATIENT INFO: Luther Castillo 66 [...] scan subsequently confirmed?metastatic disease.???Biopsy of prostate confirmed Detroit 7,?prostate cancer. ? He started androgen deprivation [...] A. PROSTATE, BIOPSY, RIGHT BASE: Prostatic adenocarcinoma, Detroit score 3+4=7 (Grade group 2), involving 60% [...] C. PROSTATE, BIOPSY, RIGHT APEX: Prostatic adenocarcinoma, [place] score 3+4=7 (Grade group 2), involving 35% of one core (3 mm tumor length). - Percentage of [place] pattern 4 = 5%. - Cribriform morphology is absent. ? D. PROSTATE, BIOPSY, RIGHT LATERAL BASE: High-grade prostatic intraepithelial neoplasia. ? E. PROSTATE, BIOPSY, RIGHT LATERAL MID: Prostatic adenocarcinoma, Rasheed score 3+4=7 (Grade group 2), involving 85% of one core (10 mm tumor length). - Percentage of [place] pattern 4 = 10%. - Definitive cribriform morphology is absent. ? F. PROSTATE, BIOPSY, RIGHT LATERAL APEX: Prostatic adenocarcinoma, [place] score 3+4=7 (Grade group 2), involving 50% [...] 77.7 Lymph% (%) Date Value 08/24/2021 14.8 Ciales% (%) Date Value 08/24/2021 6.1 Eosin% (%) Date Value 05/28/2021 1.5 Baso% (%) Date Value 08/24/2021 0.1 Abs Neut (k/uL) Date Value 08/06 (more content not included)... Normal [facility] NM BONE WHOLE BODYon 022 [facility] CNOVon 01-03-2017 CNOV Office Visit (AKURFL) LUTHER CASTILLO ([id number]) 1955 MDate Time Provider Department01/03/17 9:00 AM DORCAS WATERS During your visit today, we recorded the following information about you: Blood pressure Weight Height 114/54 70.3 kg 1.727 mGregory Pierre Waters MD 01/03/2017 9:31 AM SignedNEW PATIENT HISTORY AND PHYSICAL EXAMPRIMARY CARE PHYSICIAN: AMY Raya FOR CONSULT: Elevated PSA and poor urinary streamREFERRING PHYSICIAN: Carl Vicente [facility] COMPLAINT: New Patient and PSA (Elevated [...] (no units) Date Value 01/03/2017 neg Specific [place], Ur (no units) Date Value 01/03/2017 1.010 [...] Calcium (mg/dL) Date Value 12/16/2016 9.3 Specific [place], Ur (no units) Date Value 01/03/2017 1.010 Leukocytes (no units) Date Value 01/03/2017 neg No results found for: URCULMEDICATIONS:FLUARIX QUAD 3107-0077, PF, 60 mcg (15 mcg x 4)/0.5 [...] debridement, biceps tenotomy- COLONOSCOP W/ OR W/O [facility] SPEC 10/2006 Colonoscopy- COLONOSCOP W/ OR W/O [facility] 03/06/2012 Colonoscopy- EGD W/O OR W/BRUSH/WASH [...] Wt 70.3 kg (155 lb) BMI 23.57 kg/e7Slircoyx ExamConstitutional: He is oriented to person, place, [...] follow-up in 4-6 weeksReferring Provider: CARL VICENTE [[id number]]Allergies As of Date: 01/03/2017 Noted Allergy Reactionenvirornmental [...] malignant neoplasm of prostate [Z80.42]Order(s):UA DIP B/O [[id number]] Order #: [id number] tamsulosin ER (FLOMAX) 0.4 mg ma87Mjec 1 capsule by mouth once daily.Disp: 30 capsuleRfl: 2Prescriptions as of 01/03/2017 Sig: FLUARIX QUAD [id number] (PF) 6* GAVILYTE-C 240 GRAM-22.72 GRA* OMEPRAZOLE [...] 01/31/2017).Follow-up and Disposition History RecordedLetter TextEncounter Number: [id number] Status:Closed by DORCAS WATERS MD on 01/03/17 [facility] PROGRESSon 01-03-2017 PROGRESS HNO ID: [id number] thor: Dorcas WatersService: (none)Author Type: PhysicianType: Progress NotesFiled: 01/03/2017 9:31 AMNote Text:NEW PATIENT HISTORY AND PHYSICAL EXAMPRIMARY CARE PHYSICIAN: AMY Raya FOR CONSULT: Elevated PSA and poor urinary streamREFERRING PHYSICIAN: Carl Vicente, [facility] COMPLAINT: New Patient and PSA (Elevated [...] (no units) Date Value 01/03/2017 neg Specific [place], Ur (no units) Date Value 01/03/2017 1.010 [...] Calcium (mg/dL) Date Value 12/16/2016 9.3 Specific [place], Ur (no units) Date Value 01/03/2017 1.010 Leukocytes (no units) Date Value 01/03/2017 neg No results found for: URCULMEDICATIONS:FLUARIX QUAD [id number], PF, 60 mcg (15 mcg x 4)/0.5 [...] debridement, biceps tenotomy- COLONOSCOP W/ OR W/O [facility] SPEC 10/2006 Colonoscopy- COLONOSCOP W/ OR W/O [facility] 03/06/2012 Colonoscopy- EGD W/O OR W/BRUSH/WASH [...] Wt 70.3 kg (155 lb) BMI 23.57 kg/s3Whkenrgb ExamConstitutional: He is oriented to person, place, [...] to primary careGregory Pierre Waters MD01/03/2017 Normal [facility] Vital Signs Date Time Vital Sign Value Performing Clinician Memo ma 09-10-2024 13:26-0400 Diastolic blood pressure 59 mm[Hg] Injection Wstr Work Phone: [facility] 09-10-2024 13:26-0400 Heart rate 91 /min Injection Wstr Work Phone: [facility] 09-10-2024 13:26-0400 Respiratory rate 12 /min Injection Wstr Work Phone: [facility] 09-10-2024 13:26-0400 SaO2% (BldA) [Mass fraction] 99 % Injection Wstr Work Phone: [facility] 09-10-2024 13:26-0400 Systolic blood pressure 96 mm[Hg] Injection Wstr Work Phone: [facility] 08-11-2024 09:12-0400 Body mass index (BMI) [Ratio] 23.87 kg/m2 Dereje Herring MD Work Phone: [facility] 08-11-2024 09:12-0400 Body temperature 97.3 [degF] Dereje Herring MD Work Phone: [facility] 08-11-2024 09:12-0400 Body weight 67.36 kg Dereje Herring MD Work Phone: [facility] 08-11-2024 09:12-0400 Diastolic blood pressure 59 mm[Hg] Dereje Herring MD Work Phone: [facility] 08-11-2024 09:12-0400 Heart rate 94 /min Dereje Herring MD Work Phone: [facility] 08-11-2024 09:12-0400 SaO2% (BldA) [Mass fraction] 98 % Dereje Herring MD Work Phone: [facility] 08-11-2024 09:12-0400 Systolic blood pressure 101 mm[Hg] Dereje Herring MD Work Phone: [facility] 08-09-2024 15:20-0400 Body height 168 cm Candace Guerra APRN.CNP Work Phone: [facility] 08-09-2024 15:20-0400 Body mass index (BMI) [Ratio] 24.38 kg/m2 Candace Guerra APRN.PROGRAMMER BUSINESS Work Phone: [facility] 08-09-2024 15:20-0400 Body weight 68.8 kg Candace Guerra APRN.PROGRAMMER BUSINESS Work Phone: [facility] 08-09-2024 15:20-0400 Diastolic blood pressure 64 mm[Hg] Candace Guerra APRN.PROGRAMMER BUSINESS Work Phone: [facility] 08-09-2024 15:20-0400 Heart rate 95 /min Candace Guerra APRN.PROGRAMMER BUSINESS Work Phone: [facility] 08-09-2024 15:20-0400 SaO2% (BldA) [Mass fraction] 97 % Candace Guerra APRN.PROGRAMMER BUSINESS Work Phone: [facility] 08-09-2024 15:20-0400 Systolic blood pressure 110 mm[Hg] Candace Guerra APRN.PROGRAMMER BUSINESS Work Phone: [facility] 07-14-2024 10:33-0400 Body mass index (BMI) [Ratio] 24.27 kg/m2 Injection Wstr Work Phone: [facility] 07-14-2024 10:33-0400 Body temperature 97.59 [degF] Injection Wstr Work Phone: [facility] 07-14-2024 10:33-0400 Body weight 68.49 kg Injection Wstr Work Phone: [facility] 07-14-2024 10:33-0400 Diastolic blood pressure 67 mm[Hg] Injection Wstr Work Phone: [facility] 07-14-2024 10:33-0400 Heart rate 74 /min Injection Wstr Work Phone: [facility] 07-14-2024 10:33-0400 Respiratory rate 12 /min Injection Wstr Work Phone: [facility] 07-14-2024 10:33-0400 SaO2% (BldA) [Mass fraction] 100 % Injection Wstr Work Phone: [facility] 07-14-2024 10:33-0400 Systolic blood pressure 113 mm[Hg] Injection Wstr Work Phone: [facility] 06-24-2024 09:11-0400 Body mass index (BMI) [Ratio] 24.35 kg/m2 Suresh Hodges MD Work Phone: [facility] 06-24-2024 09:11-0400 Body temperature 97.2 [degF] Suresh Hodges MD Work Phone: [facility] 06-24-2024 [id number] Body weight 68.72 kg Suresh Hodges MD Work Phone: [facility] 06-24-2024 09:11-0400 Diastolic blood pressure 74 mm[Hg] Suresh Hodges MD Work Phone: [facility] 06-24-2024 09:11-0400 Heart rate 97 /min Suresh Hodges MD Work Phone: [facility] 06-24-2024 09:11-0400 Respiratory rate 14 /min Suresh Hodges MD Work Phone: [facility] 06-24-2024 09:11-0400 SaO2% (BldA) [Mass fraction] 98 % Suresh Hodges MD Work Phone: [facility] 06-24-2024 09:11-0400 Systolic blood pressure 114 mm[Hg] Suresh Hodges MD Work Phone: [facility] 06-16-2024 10:35-0400 Body mass index (BMI) [Ratio] 24.27 kg/m2 Injection Wstr Work Phone: [facility] 06-16-2024 10:35-0400 Body temperature 98.2 [degF] Injection Wstr Work Phone: [facility] 06-16-2024 10:35-0400 Body weight 68.49 kg Injection Wstr Work Phone: [facility] 06-16-2024 10:35-0400 Diastolic blood pressure 66 mm[Hg] Injection Wstr Work Phone: [facility] 06-16-2024 10:35-0400 Heart rate 96 /min Injection Wstr Work Phone: [facility] 06-16-2024 10:35-0400 Respiratory rate 12 /min Injection Wstr Work Phone: [facility] 06-16-2024 10:35-0400 SaO2% (BldA) [Mass fraction] 97 % Injection Wstr Work Phone: [facility] 06-16-2024 10:35-0400 Systolic blood pressure 105 mm[Hg] Injection Wstr Work Phone: [facility] 05-12-2024 10:10-0500 Body mass index (BMI) [Ratio] 24.59 kg/m2 Injection Wstr Work Phone: [facility] 05-12-2024 10:10-0500 Body weight 69.4 kg Injection Wstr Work Phone: [facility] 05-12-2024 10:10-0500 Diastolic blood pressure 74 mm[Hg] Injection Wstr Work Phone: [facility] 05-12-2024 10:10-0500 Heart rate 79 /min Injection Wstr Work Phone: [facility] 05-12-2024 10:10-0500 Respiratory rate 12 /min Injection Wstr Work Phone: [facility] 05-12-2024 10:10-0500 SaO2% (BldA) [Mass fraction] 97 % Injection Wstr Work Phone: [facility] 05-12-2024 10:10-0500 Systolic blood pressure 119 mm[Hg] Injection Wstr Work Phone: [facility] 04-14-2024 10:15-0500 Body mass index (BMI) [Ratio] 24.43 kg/m2 Injection Wstr Work Phone: [facility] 04-14-2024 10:15-0500 Body temperature 97.9 [degF] Injection Wstr Work Phone: [facility] 04-14-2024 10:15-0500 Body weight 68.95 kg Injection Wstr Work Phone: [facility] 04-14-2024 10:15-0500 Diastolic blood pressure 68 mm[Hg] Injection Wstr Work Phone: [facility] 04-14-2024 10:15-0500 Heart rate 91 /min Injection Wstr Work Phone: [facility] 04-14-2024 10:15-0500 SaO2% (BldA) [Mass fraction] 98 % Injection Wstr Work Phone: [facility] 04-14-2024 10:15-0500 Systolic blood pressure 133 mm[Hg] Injection Wstr Work Phone: [facility] 03-17-2024 09:46-0500 Body mass index (BMI) [Ratio] 23.62 kg/m2 Injection Wstr Work Phone: [facility] 03-17-2024 09:46-0500 Body temperature 97.7 [degF] Injection Wstr Work Phone: [facility] 03-17-2024 09:46-0500 Body weight 66.68 kg Injection Wstr Work Phone: [facility] 03-17-2024 09:46-0500 Diastolic blood pressure 65 mm[Hg] Injection Wstr Work Phone: [facility] 03-17-2024 09:46-0500 Heart rate 82 /min Injection Wstr Work Phone: [facility] 03-17-2024 09:46-0500 Respiratory rate 12 /min Injection Wstr Work Phone: [facility] 03-17-2024 09:46-0500 SaO2% (BldA) [Mass fraction] 94 % Injection Wstr Work Phone: [facility] 03-17-2024 09:46-0500 Systolic blood pressure 122 mm[Hg] Injection Wstr Work Phone: [facility] 03-10-2024 09:00-0500 Body height 168 cm Catherine Podlogar SENIOR PRODUCER.PROGRAMMER BUSINESS Work Phone: [facility] 03-10-2024 09:00-0500 Body mass index (BMI) [Ratio] 22.6 kg/m2 Catherine Podlogar SENIOR PRODUCER.PROGRAMMER BUSINESS Work Phone: [facility] 03-10-2024 09:00-0500 Body weight 63.8 kg Catherine Podlogar SENIOR PRODUCER.PROGRAMMER BUSINESS Work Phone: [facility] 03-10-2024 09:00-0500 Diastolic blood pressure 76 mm[Hg] Catehrine Podlogar SENIOR PRODUCER.PROGRAMMER BUSINESS Work Phone: [facility] 03-10-2024 09:00-0500 Heart rate 84 /min Catherine Podlogar SENIOR PRODUCER.PROGRAMMER BUSINESS Work Phone: [facility] 03-10-2024 09:00-0500 Respiratory rate 18 /min Catherine Podlogar SENIOR PRODUCER.PROGRAMMER BUSINESS Work Phone: [facility] 03-10-2024 09:00-0500 Systolic blood pressure 124 mm[Hg] Catherine Podlogar SENIOR PRODUCER.PROGRAMMER BUSINESS Work Phone: [facility] 02-18-2024 09:39-0500 Body mass index (BMI) [Ratio] 22.87 kg/m2 Injection Wstr Work Phone: [facility] 02-18-2024 09:39-0500 Body temperature 97 [degF] Injection Wstr Work Phone: [facility] 02-18-2024 09:39-0500 Body weight 66.22 kg Injection Wstr Work Phone: [facility] 02-18-2024 09:39-0500 Diastolic blood pressure 61 mm[Hg] Injection Wstr Work Phone: [facility] 02-18-2024 09:39-0500 Heart rate 90 /min Injection Wstr Work Phone: [facility] 02-18-2024 09:39-0500 Respiratory rate 12 /min Injection Wstr Work Phone: [facility] 02-18-2024 09:39-0500 SaO2% (BldA) [Mass fraction] 97 % Injection Wstr Work Phone: [facility] 02-18-2024 09:39-0500 Systolic blood pressure 98 mm[Hg] Injection Wstr Work Phone: [facility] 02-03-2024 10:14-0400 Body mass index (BMI) [Ratio] 23.49 kg/m2 Arsalan Ocampo MD Work Phone: [facility] 02-03-2024 10:14-0400 Body weight 68.04 kg Arsalan Ocampo MD Work Phone: [facility] 02-03-2024 10:14-0400 Diastolic blood pressure 58 mm[Hg] Arsalan Ocampo MD Work Phone: [facility] 02-03-2024 10:14-0400 Heart rate 93 /min Arsalan Ocampo MD Work Phone: [facility] 02-03-2024 10:14-0400 Respiratory rate 16 /min Arsalan Ocampo MD Work Phone: [facility] 02-03-2024 10:14-0400 SaO2% (BldA) [Mass fraction] 99 % Arsalan Ocampo MD Work Phone: [facility] 02-03-2024 10:14-0400 Systolic blood pressure 118 mm[Hg] Arsalan Ocampo MD Work Phone: [facility] 01-21-2024 09:25-0400 Body mass index (BMI) [Ratio] 23.57 kg/m2 Dereje Herring MD Work Phone: [facility] 01-21-2024 09:25-0400 Body temperature 96.49 [degF] Dereje Herring MD Work Phone: [facility] 01-21-2024 09:25-0400 Body weight 68.27 kg Dereje Herring MD Work Phone: [facility] 01-21-2024 09:25-0400 Diastolic blood pressure 72 mm[Hg] Dereje Herring MD Work Phone: [facility] 01-21-2024 09:25-0400 Heart rate 94 /min Dereje Herring MD Work Phone: [facility] 01-21-2024 09:25-0400 SaO2% (BldA) [Mass fraction] 98 % Dereje Herring MD Work Phone: [facility] 01-21-2024 09:25-0400 Systolic blood pressure 118 mm[Hg] Dereje Herring MD Work Phone: [facility] 12-24-2023 11:37-0400 Body mass index (BMI) [Ratio] 23.79 kg/m2 Catherine Podlogar SENIOR PRODUCER.PROGRAMMER BUSINESS Work Phone: [facility] 12-24-2023 11:37-0400 Body weight 68.9 kg Catherine Podlogar SENIOR PRODUCER.PROGRAMMER BUSINESS Work Phone: [facility] 12-24-2023 11:37-0400 Diastolic blood pressure 62 mm[Hg] Catherine Podlogar SENIOR PRODUCER.PROGRAMMER BUSINESS Work Phone: [facility] 12-24-2023 11:37-0400 Heart rate 102 /min Catherine Podlogar SENIOR PRODUCER.PROGRAMMER BUSINESS Work Phone: [facility] 12-24-2023 11:37-0400 Respiratory rate 18 /min Catherine Podlogar SENIOR PRODUCER.PROGRAMMER BUSINESS Work Phone: [facility] 12-24-2023 11:37-0400 SaO2% (BldA) [Mass fraction] 98 % Catherine Podlogar SENIOR PRODUCER.PROGRAMMER BUSINESS Work Phone: [facility] 12-24-2023 11:37-0400 Systolic blood pressure 112 mm[Hg] Catherine Podlogar SENIOR PRODUCER.PROGRAMMER BUSINESS Work Phone: [facility] 12-17-2023 09:14-0400 Body mass index (BMI) [Ratio] 24.28 kg/m2 Bashir Wstr Work Phone: [facility] 12-17-2023 09:140400 Body weight 70.31 kg Injection Wstr Work Phone: [facility] 12-17-2023 09:14-0400 Diastolic blood pressure 66 mm[Hg] Injection Wstr Work Phone: [facility] 12-17-2023 09:14-0400 Heart rate 91 /min Injection Wstr Work Phone: [facility] 12-17-2023 09:14-0400 Respiratory rate 12 /min Injection Wstr Work Phone: [facility] 12-17-2023 09:14-0400 SaO2% (BldA) [Mass fraction] 99 % Injection Wstr Work Phone: [facility] 12-17-2023 09:14-0400 Systolic blood pressure 119 mm[Hg] Injection Wstr Work Phone: [facility] 11-19-2023 10:52-0400 Body mass index (BMI) [Ratio] 23.65 kg/m2 Injection Wstr Work Phone: [facility] 11-19-2023 10:52-0400 Body temperature 97 [degF] Injection Wstr Work Phone: [facility] 11-19-2023 10:52-0400 Body weight 68.49 kg Injection Wstr Work Phone: [facility] 11-19-2023 10:52-0400 Diastolic blood pressure 65 mm[Hg] Injection Wstr Work Phone: [facility] 11-19-2023 10:52-0400 Heart rate 79 /min Injection Wstr Work Phone: [facility] 11-19-2023 10:52-0400 Respiratory rate 12 /min Injection Wstr Work Phone: [facility] 11-19-2023 10:52-0400 SaO2% (BldA) [Mass fraction] 95 % Injection Wstr Work Phone: [facility] 11-19-2023 10:52-0400 Systolic blood pressure 109 mm[Hg] Injection Wstr Work Phone: [facility] 10-22-2023 08:18-0400 Body mass index (BMI) [Ratio] 23.88 kg/m2 Dereje Herring MD Work Phone: [facility] 10-22-2023 08:18-0400 Body temperature 97 [degF] Dereje Herring MD Work Phone: [facility] 10-22-2023 08:18-0400 Body weight 69.17 kg Dereje Herring MD Work Phone: [facility] 10-22-2023 08:18-0400 Diastolic blood pressure 72 mm[Hg] Dereje Herring MD Work Phone: [facility] 10-22-2023 08:18-0400 Heart rate 80 /min Dereje Herring MD Work Phone: [facility] 10-22-2023 08:18-0400 SaO2% (BldA) [Mass fraction] 97 % Dereje Herring MD Work Phone: [facility] 10-22-2023 08:18-0400 Systolic blood pressure 119 mm[Hg] Dereje Herring MD Work Phone: [facility] 10-16-2023 15:02-0400 Body height 170.2 cm Dorcas Champagne DO Work Phone: [facility] 10-16-2023 15:02-0400 Body mass index (BMI) [Ratio] 24.17 kg/m2 Dorcas Champagne DO Work Phone: [facility] 10-16-2023 15:02-0400 Body weight 70 kg Dorcas Champagne DO Work Phone: [facility] 10-16-2023 15:02-0400 Diastolic blood pressure 64 mm[Hg] Dorcas Champagne DO Work Phone: [facility] 10-16-2023 15:02-0400 Heart rate 98 /min Dorcas Champagne DO Work Phone: [facility] 10-16-2023 15:02-0400 SaO2% (BldA) [Mass fraction] 97 % Dorcas Champagne DO Work Phone: [facility] 10-16-2023 15:02-0400 Systolic blood pressure 118 mm[Hg] Dorcas Champagne DO Work Phone: [facility] 10-02-2023 08:57-0400 Body height 171 cm Injection Wstr Work Phone: [facility] 10-02-2023 08:57-0400 Body mass index (BMI) [Ratio] 23.89 kg/m2 Injection Wstr Work Phone: [facility] 10-02-2023 08:57-0400 Body temperature 97.7 [degF] Injection Wstr Work Phone: [facility] 10-02-2023 08:57-0400 Body weight 69.85 kg Injection Wstr Work Phone: [facility] 10-02-2023 08:57-0400 Diastolic blood pressure 66 mm[Hg] Injection Wstr Work Phone: [facility] 10-02-2023 08:57-0400 Heart rate 74 /min Injection Wstr Work Phone: [facility] 10-02-2023 08:57-0400 SaO2% (BldA) [Mass fraction] 98 % Injection Wstr Work Phone: [facility] 10-02-2023 08:57-0400 Systolic blood pressure 131 mm[Hg] Injection Wstr Work Phone: [facility] 09-24-2023 09:12-0400 Body mass index (BMI) [Ratio] 24.12 kg/m2 Injection Wstr Work Phone: [facility] 09-24-2023 09:12-0400 Body temperature 97.3 [degF] Injection Wstr Work Phone: [facility] 09-24-2023 09:12-0400 Body weight 69.85 kg Injection Wstr Work Phone: [facility] 09-24-2023 09:12-0400 Diastolic blood pressure 65 mm[Hg] Injection Wstr Work Phone: [facility] 09-24-2023 09:12-0400 Heart rate 65 /min Injection Wstr Work Phone: [facility] 09-24-2023 09:12-0400 Respiratory rate 12 /min Injection Wstr Work Phone: [facility] 09-24-2023 09:12-0400 SaO2% (BldA) [Mass fraction] 97 % Injection Wstr Work Phone: [facility] 09-24-2023 09:12-0400 Systolic blood pressure 115 mm[Hg] Injection Wstr Work Phone: [facility] 08-27-2023 09:10-0400 Body mass index (BMI) [Ratio] 24.12 kg/m2 Injection Wstr Work Phone: [facility] 08-27-2023 09:10-0400 Body temperature 97.11 [degF] Injection Wstr Work Phone: [facility] 08-27-2023 09:10-0400 Body weight 69.85 kg Injection Wstr Work Phone: [facility] 08-27-2023 09:10-0400 Diastolic blood pressure 68 mm[Hg] Injection Wstr Work Phone: [facility] 08-27-2023 09:10-0400 Heart rate 82 /min Injection Wstr Work Phone: [facility] 08-27-2023 09:10-0400 Respiratory rate 12 /min Injection Wstr Work Phone: [facility] 08-27-2023 09:10-0400 SaO2% (BldA) [Mass fraction] 97 % Injection Wstr Work Phone: [facility] 08-27-2023 09:10-0400 Systolic blood pressure 106 mm[Hg] Injection Wstr Work Phone: [facility] 07-31-2023 09:07-0400 Body mass index (BMI) [Ratio] 24.28 kg/m2 Injection Wstr Work Phone: [facility] 07-31-2023 09:07-0400 Body temperature 98.01 [degF] Injection Wstr Work Phone: [facility] 07-31-2023 09:07-0400 Body weight 70.31 kg Injection Wstr Work Phone: [facility] 07-31-2023 09:07-0400 Diastolic blood pressure 69 mm[Hg] Injection Wstr Work Phone: [facility] 07-31-2023 09:07-0400 Heart rate 84 /min Injection Wstr Work Phone: [facility] 07-31-2023 09:07-0400 Respiratory rate 12 /min Injection Wstr Work Phone: [facility] 07-31-2023 09:07-0400 SaO2% (BldA) [Mass fraction] 98 % Injection Wstr Work Phone: [facility] 07-31-2023 09:07-0400 Systolic blood pressure 119 mm[Hg] Injection Wstr Work Phone: [facility] 06-11-2023 10:05-0500 Body weight 71.94 kg Catherine Podlogar SENIOR PRODUCER.PROGRAMMER BUSINESS Work Phone: [facility] 06-11-2023 10:05-0500 Diastolic blood pressure 62 mm[Hg] Catherine Podlogar SENIOR PRODUCER.PROGRAMMER BUSINESS Work Phone: [facility] 06-11-2023 10:05-0500 Heart rate 106 /min Catherine Podlogar SENIOR PRODUCER.PROGRAMMER BUSINESS Work Phone: [facility] 06-11-2023 10:05-0500 Respiratory rate 16 /min Catherine Podlogar SENIOR PRODUCER.PROGRAMMER BUSINESS Work Phone: [facility] 06-11-2023 10:05-0500 SaO2% (BldA) [Mass fraction] 96 % Catherine Podlogar SENIOR PRODUCER.PROGRAMMER BUSINESS Work Phone: [facility] 06-11-2023 10:05-0500 Systolic blood pressure 114 mm[Hg] Catherine Peraza SENIOR PRODUCER.PROGRAMMER BUSINESS Work Phone: [facility] 05-08-2023 09:19-0500 Body temperature 97.9 [degF] Injection Wstr Work Phone: [facility] 05-08-2023 09:19-0500 Body weight 72.58 kg Injection Wstr Work Phone: [facility] 05-08-2023 09:19-0500 Diastolic blood pressure 58 mm[Hg] Injection Wstr Work Phone: [facility] 05-08-2023 09:19-0500 Heart rate 74 /min Injection Wstr Work Phone: [facility] 05-08-2023 09:19-0500 Respiratory rate 12 /min Injection Wstr Work Phone: [facility] 05-08-2023 09:19-0500 SaO2% (BldA) [Mass fraction] 95 % Injection Wstr Work Phone: [facility] 05-08-2023 09:19-0500 Systolic blood pressure 102 mm[Hg] Injection Wstr Work Phone: [facility] 02-13-2023 10:26-0500 Diastolic blood pressure 66 mm[Hg] Injection Wstr Work Phone: [facility] 02-13-2023 10:26-0500 Heart rate 85 /min Injection Wstr Work Phone: [facility] 02-13-2023 10:26-0500 SaO2% (BldA) [Mass fraction] 98 % Injection Wstr Work Phone: [facility] 02-13-2023 10:26-0500 Systolic blood pressure 109 mm[Hg] Injection Wstr Work Phone: [facility] 12-19-2022 09:15-0400 Body temperature 98.1 [degF] Injection Wstr Work Phone: [facility] 12-19-2022 09:15-0400 Diastolic blood pressure 64 mm[Hg] Injection Wstr Work Phone: [facility] 12-19-2022 09:15-0400 Heart rate 78 /min Injection Wstr Work Phone: [facility] 12-19-2022 09:15-0400 Systolic blood pressure 121 mm[Hg] Injection Wstr Work Phone: [facility] 11-21-2022 09:37-0400 Body temperature 96.91 [degF] Injection Wstr Work Phone: [facility] 11-21-2022 09:37-0400 Body weight 68.95 kg Injection Wstr Work Phone: [facility] 11-21-2022 09:37-0400 Diastolic blood pressure 58 mm[Hg] Injection Wstr Work Phone: [facility] 11-21-2022 09:37-0400 Heart rate 78 /min Injection Wstr Work Phone: [facility] 11-21-2022 09:37-0400 Systolic blood pressure 99 mm[Hg] Injection Wstr Work Phone: [facility] 11-19-2022 13:18-0400 Body height 170.2 cm Derrek Samuel PA-C Work Phone: [facility] 11-19-2022 13:18-0400 Body temperature 97.39 [degF] Derrek Samuel PA-C Work Phone: [facility] 11-19-2022 13:18-0400 Body weight 69.22 kg Derrek Halchita PA-C Work Phone: [facility] 11-19-2022 13:18-0400 Diastolic blood pressure 72 mm[Hg] Derrek Samuel PA-C Work Phone: [facility] 11-19-2022 13:18-0400 Heart rate 101 /min Derrek Halchita PA-C Work Phone: [facility] 11-19-2022 13:18-0400 SaO2% (BldA) [Mass fraction] 100 % Derrek Baker PA-C Work Phone: [facility] 11-19-2022 13:18-0400 Systolic blood pressure 116 mm[Hg] Derrek YBARRA-C Work Phone: [facility] 10-24-2022 09:12-0400 Body temperature 96.8 [degF] Injection Wstr Work Phone: [facility] 10-24-2022 09:12-0400 Diastolic blood pressure 51 mm[Hg] Injection Wstr Work Phone: [facility] 10-24-2022 09:12-0400 Heart rate 66 /min Injection Wstr Work Phone: [facility] 10-24-2022 09:12-0400 Systolic blood pressure 99 mm[Hg] Injection Wstr Work Phone: [facility] 10-14-2022 09:15-0400 Body temperature 97.3 [degF] Injection Wstr Work Phone: [facility] 10-14-2022 09:15-0400 Body weight 68.49 kg Injection Wstr Work Phone: [facility] 10-14-2022 09:15-0400 Diastolic blood pressure 64 mm[Hg] Injection Wstr Work Phone: [facility] 10-14-2022 09:15-0400 Heart rate 75 /min Injection Wstr Work Phone: [facility] 10-14-2022 09:15-0400 Systolic blood pressure 104 mm[Hg] Injection Wstr Work Phone: [facility] 09-26-2022 09:49-0400 Body temperature 97.5 [degF] Injection Wstr Work Phone: [facility] 09-26-2022 09:49-0400 Body weight 70.31 kg Injection Wstr Work Phone: [facility] 09-26-2022 09:49-0400 Diastolic blood pressure 57 mm[Hg] Injection Wstr Work Phone: [facility] 09-26-2022 09:49-0400 Heart rate 80 /min Injection Wstr Work Phone: [facility] 09-26-2022 09:49-0400 Systolic blood pressure 108 mm[Hg] Injection Wstr Work Phone: [facility] 09-23-2022 13:53-0400 Body height [address] PERFECTO CRAWFORD MD [facility] 09-23-2022 13:53-0400 Body temperature 97.7 [degF] DR PERFECTO CRAWFORD MD [facility] 09-23-2022 13:53-0400 Body weight [address] PERFECTO CRAWFORD MD [facility] 09-23-2022 13:53-0400 Diastolic Blood Pressure Non-Invasive [address] PERFECTO CRAWFORD MD [facility] 09-23-2022 13:53-0400 Heart rate 100 /min DR PERFECTO CRAWFORD MD [facility] 09-23-2022 13:53-0400 Respiratory rate 18 /min DR PERFECTO CRAWFORD MD [facility] 09-23-2022 13:53-0400 Systolic Blood Pressure Non-Invasive [address] PERF[address] CRAWFORD MD [facility] 08-16-2022 11:01-0400 Body temperature 97.2 [degF] Sanjeev rAanda SENIOR PRODUCER.PROGRAMMER BUSINESS Work Phone: [facility] 08-16-2022 11:01-0400 Body weight 69.63 kg Sanjeev Aranda SENIOR PRODUCER.PROGRAMMER BUSINESS Work Phone: [facility] 08-16-2022 11:01-0400 Diastolic blood pressure 76 mm[Hg] Sanjeev Aranda SENIOR PRODUCER.PROGRAMMER BUSINESS Work Phone: [facility] 08-16-2022 11:01-0400 Heart rate 84 /min Sanjeev Aranda SENIOR PRODUCER.PROGRAMMER BUSINESS Work Phone: [facility] 08-16-2022 11:01-0400 Systolic blood pressure 104 mm[Hg] Sanjeev Aranda SENIOR PRODUCER.PROGRAMMER BUSINESS Work Phone: [facility] 04-26-2022 11:07-0500 Body height 170.2 cm Sp Mckeon DO Work Phone: [facility] 04-26-2022 11:07-0500 Body weight 69.4 kg Sp Mckeon DO Work Phone: [facility] 04-26-2022 11:07-0500 Respiratory rate 18 /min Sp Mckeon DO Work Phone: [facility] 02-27-2022 10:02-0500 Diastolic blood pressure 61 mm[Hg] Lyn Mcgowan MD Work Phone: [facility] [facility] 02-27-2022 10:02-0500 Heart rate 64 /min Lyn Mcgowan MD Work Phone: [facility] 02-27-2022 10:02-0500 Respiratory rate 16 /min Lyn Mcgowan MD Work Phone: [facility] 02-27-2022 10:02-0500 SaO2% (BldA) [Mass fraction] 94 % Lyn Mcgowan MD Work Phone: [facility] 02-27-2022 10:02-0500 Systolic blood pressure 102 mm[Hg] Lyn Mcgowan MD Work Phone: [facility] 02-27-2022 08:45-0500 Body temperature 96.21 [degF] Lyn Mcgowan MD Work Phone: [facility] 02-27-2022 08:45-0500 Body weight 71 kg Lyn Mcgowan MD Work Phone: [facility] 02-14-2022 10:33-0500 Body height 170.3 cm Lillian Clemente MD Work Phone: [facility] 02-14-2022 10:33-0500 Body temperature 97 [degF] Lillian Clemente MD Work Phone: [facility] 02-14-2022 10:33-0500 Body weight 70.99 kg Lillian Clemente MD Work Phone: [facility] 02-14-2022 10:33-0500 Diastolic blood pressure 63 mm[Hg] Lillian Clemente MD Work Phone: [facility] 02-14-2022 10:33-0500 Heart rate 96 /min Lillian Clemente MD Work Phone: [facility] 02-14-2022 10:33-0500 SaO2% (BldA) [Mass fraction] 98 % Lillian Clemente MD Work Phone: [facility] 02-14-2022 10:33-0500 Systolic blood pressure 113 mm[Hg] Lillian Clemente MD Work Phone: [facility] 11-13-2021 09:01-0400 Body weight 70.67 kg Arsalan Ocampo MD Work Phone: [facility] 11-13-2021 09:01-0400 Diastolic blood pressure 62 mm[Hg] Arsalan Ocampo MD Work Phone: [facility] 11-13-2021 09:01-0400 Heart rate 78 /min Arsalan Ocampo MD Work Phone: [facility] 11-13-2021 09:01-0400 Respiratory rate 16 /min Arsalan Ocampo MD Work Phone: [facility] 11-13-2021 09:01-0400 SaO2% (BldA) [Mass fraction] 98 % Arsalan Ocampo MD Work Phone: [facility] 11-13-2021 09:01-0400 Systolic blood pressure 110 mm[Hg] Arsalan Ocampo MD Work Phone: [facility] 09-05-2021 10:11-0400 Body height 172.7 cm Sp Mckeon DO Work Phone: [facility] 09-05-2021 10:11-0400 Body weight 69.4 kg Sp Mckeon DO Work Phone: [facility] 09-05-2021 10:11-0400 Diastolic blood pressure 60 mm[Hg] Sp Mckeon DO Work Phone: [facility] 09-05-2021 10:11-0400 Systolic blood pressure 113 mm[Hg] Sp Mckeon DO Work Phone: [facility] 09-04-2021 12:55-0400 Body height 172.7 cm Jazlyn Lombardi III, MD Work Phone: [facility] 09-04-2021 12:55-0400 Body mass index (BMI) [Ratio] 23.14 kg/m2 Jazlyn Lombardi III, MD Work Phone: [facility] 09-04-2021 12:55-0400 Body temperature 98.4 [degF] Jazlyn Lombardi III, MD Work Phone: [facility] 09-04-2021 12:55-0400 Body weight 69.04 kg Jazlyn Lombardi III, MD Work Phone: [facility] 09-04-2021 12:55-0400 Diastolic blood pressure 67 mm[Hg] Jazlyn Lombardi III, MD Work Phone: [facility] 09-04-2021 12:55-0400 Heart rate 98 /min Jazlyn Lombardi III, MD Work Phone: [facility] 09-04-2021 12:55-0400 Respiratory rate 16 /min Jazlyn Lombarid III, MD Work Phone: [facility] 09-04-2021 12:55-0400 SaO2% (BldA) [Mass fraction] 95 % Jazlyn Lombardi III, MD Work Phone: [facility] 09-04-2021 12:55-0400 Systolic blood pressure 126 mm[Hg] Jazlyn Lombardi III, MD Work Phone: [facility] 08-28-2021 11:37-0400 Body temperature 97.7 [degF] Lillian Clemente MD Work Phone: [facility] 08-28-2021 11:37-0400 Body weight 69.63 kg Lillian Clemente MD Work Phone: [facility] 08-28-2021 11:37-0400 Diastolic blood pressure 55 mm[Hg] Lillian Clemente MD Work Phone: [facility] 08-28-2021 11:37-0400 Heart rate 95 /min Lillian Clemente MD Work Phone: [facility] 08-28-2021 11:37-0400 Systolic blood pressure 100 mm[Hg] Lillian Clemente MD Work Phone: [facility] Encounters Encounter Date Encounter Type Care Provider Facility Start: 09-15-2024 End: 09-15-2024 ambulatory ARSALAN OCAMPO Facility:[facility] Start: 09-10-2024 End: 09-10-2024 ambulatory Injection Ryne [facility] Work Phone: Hematology/Oncology Comment on above: Prostate cancer (HCC ) (Primary Dx) Start: 09-10-2024 End: 09-10-2024 ambulatory SANJEEV ARANDA Facility:[facility] Start: 09-08-2024 End: 09-08-2024 ambulatory Injection Ryne [facility] Work Phone: Hematology/Oncology Comment on above: Prostate cancer (HCC ) (Primary Dx); 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) Start: 08-27-2024 End: 08-27-2024 ambulatory ARSALAN OCAMPO Facility:[facility] Start: 08-26-2024 End: 08-26-2024 ambulatory ARSALAN OCAMPO Facility:[facility] Start: 08-20-2024 End: 08-20-2024 ambulatory Dereje Herring MD Work Phone: Hematology/Oncology Comment on above: discontinued Aranesp and Xgeva Start: 08-11-2024 End: 08-11-2024 Patient encounter procedure Dereje Herring MD Work Phone: Hematology/Oncology Start: 08-11-2024 End: 08-11-2024 ambulatory [facility] Work Phone: Hematology/Oncology Comment on above: Prostate cancer (HCC ) (Primary Dx); 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) Prostate cancer (HCC ) (Primary Dx); 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); Prostate cancer metastatic to bone (HCC) Start: 08-09-2024 End: 08-09-2024 Patient encounter procedure Candace Guerra APRN.PROGRAMMER BUSINESS Work Phone: Cardiology Comment on above: Vitamin D deficiency (Primary Dx); Iron deficiency; SOB (shortness of breath); Mixed hyperlipidemia Start: 08-09-2024 End: 08-09-2024 ambulatory CANDACE GUERRA Facility:[facility] Start: 07-14-2024 End: 07-14-2024 ambulatory Injection Ryne [facility] Work Phone: Hematology/Oncology Comment on above: 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); Prostate cancer (HCC) Start: 07-07-2024 End: 07-07-2024 Telephone encounter Suresh Hodges MD Work Phone: Radiation Oncology Start: 07-07-2024 End: 07-07-2024 ambulatory ARSALAN OCAMPO Facility:[facility] Start: 07-07-2024 End: 07-07-2024 Nursing evaluation of patient and report Derm Surgery Nurse Work Phone: Dermatology Comment on above: 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) Start: 06-24-2024 End: 06-24-2024 ambulatory SURESH HODGES Facility:[facility] Start: 06-24-2024 End: 06-24-2024 Patient encounter procedure Suresh Hodges MD Work Phone: Radiation Oncology Comment on above: Squamous cell carcin joseph of scalp Start: 06-17-2024 End: 06-17-2024 Telephone encounter Suresh Hodges MD Work Phone: Radiation Oncology Start: 06-17-2024 End: 06-17-2024 ambulatory RICHIE DEJESUS Facility:[facility] Start: 06-17-2024 End: 06-17-2024 Patient encounter procedure Madelaine Bronson MD Work Phone: Dermatology Comment on above: 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) Start: 06-16-2024 End: 06-16-2024 ambulatory Injection Ryne [facility] Work Phone: Hematology/Oncology Comment on above: Prostate cancer (HCC ) (Primary Dx); 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) Start: 05-18-2024 End: 05-18-2024 Refill Dereje Herring MD Work Phone: Hematology/Oncology Comment on above: Refill Request Start: 05-17-2024 End: 05-18-2024 ambulatory Catherine Peraza APRN.PROGRAMMER BUSINESS Work Phone: [facility] Comment on above: motion sickness Start: 05-13-2024 End: 05-13-2024 Refill Dereje Herring MD Work Phone: Hematology/Oncology Comment on above: Refill Request Start: 05-12-2024 End: 05-12-2024 ambulatory Injection Ryne [facility] Work Phone: Hematology/Oncology Comment on above: 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); Prostate cancer (HCC) Start: 2024 End: 2024 Telephone encounter Richie Dejesus MD Work Phone: Dermatology Comment on above: SKIN CANCER Start: 05-04-2024 End: 05-04-2024 ambulatory ARSALAN OCAMPO Facility:[facility] Start: 05-04-2024 End: 05-04-2024 Patient encounter procedure Richie Dejesus MD Work Phone: Dermatology Comment on above: Skin neoplasm (Prima ry Dx) Start: 04-14-2024 End: 04-14-2024 ambulatory Injection Ryne [facility] Work Phone: Hematology/Oncology Comment on above: Prostate cancer (HCC ) (Primary Dx); 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) Start: 04-05-2024 End: 04-14-2024 Telephone encounter Gualberto Mcmahon MD Work Phone: Pain Management Comment on above: Appointment (Appoint ment cancelled) Start: 04-01-2024 End: 04-01-2024 ambulatory Endy Curran [email or web address] [place] Comment on above: Left hip pain (Prima ry Dx); Radiculopathy, lumbar region; Decreased ROM of lumbar spine; Weakness of trunk musculature Start: 03-30-2024 End: 03-30-2024 Refill Dereje Herring MD Work Phone: Hematology/Oncology Comment on above: Refill Request Start: 03-24-2024 End: 03-24-2024 ambulatory Endy Curran PT [email or web address] [place] Comment on above: Left hip pain (Prima ry Dx); Radiculopathy, lumbar region; Decreased ROM of lumbar spine; Weakness of trunk musculature Start: 03-19-2024 End: 03-19-2024 ambulatory ARSALAN OCAMPO Facility:[facility] Start: 03-19-2024 End: 03-19-2024 Patient encounter procedure Richie Dejesus MD Work Phone: Dermatology Comment on above: Actinic keratosis (P rimary Dx) Start: 03-17-2024 End: 03-17-2024 ambulatory Injection Ryne [facility] Work Phone: Hematology/Oncology Comment on above: Prostate cancer (HCC ) (Primary Dx); 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) Start: 03-16-2024 End: 03-16-2024 ambulatory Juliano Magaña PT [email or web address] [place] Comment on above: Left hip pain (Prima ry Dx); Radiculopathy, lumbar region; Decreased ROM of lumbar spine; Weakness of trunk musculature Start: 03-15-2024 End: 03-15-2024 Refill Arsalan Ocampo MD Work Phone: [facility] [place] Comment on above: Refill Request Start: 03-10-2024 End: 03-10-2024 ambulatory ARSALAN OCAMPO Facility:[facility] Start: 03-10-2024 End: 03-10-2024 Patient encounter procedure Catherine Peraza APRN.PROGRAMMER BUSINESS Work Phone: [facility] Comment on above: Medicare annual well ness visit, subsequent (Primary Dx); Screening for depression Start: 03-09-2024 End: 03-09-2024 ambulatory Jose David Cedeno LAB RE[facility] [place] Comment on above: Left hip pain (Prima ry Dx); Radiculopathy, lumbar region; Decreased ROM of lumbar spine; Weakness of trunk musculature Start: 03-02-2024 End: 03-02-2024 ambulatory Juliano Magaña PT [facility]y [place] Comment on above: Left hip pain (Prima ry Dx); Radiculopathy, lumbar region; Decreased ROM of lumbar spine; Weakness of trunk musculature Start: 02-27-2024 End: 02-27-2024 ambulatory 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 LAB REP [facility] [place] Comment on above: Left hip pain (Prima ry Dx); Radiculopathy, lumbar region; Decreased ROM of lumbar spine; Weakness of trunk musculature Start: 02-25-2024 End: 03-11-2024 Telephone encounter Vicente Roach MD Work Phone: Orthopaedics Comment on above: Patient Question Start: 02-25-2024 End: 02-25-2024 ambulatory Endy Curran PT [facility] [place] Comment on above: Left hip pain (Prima ry Dx); Radiculopathy, lumbar region; Decreased ROM of lumbar spine; Weakness of trunk musculature Start: 02-23-2024 End: 02-23-2024 ambulatory ARSALAN OCAMPO Facility:[facility] Start: 02-23-2024 End: 02-23-2024 Patient encounter procedure Vicente Roach MD Work Phone: Orthopaedics Comment on above: Osteoarthritis of sp ine with radiculopathy, lumbar region (Primary Dx); Chronic left hip pain; Right hip pain Start: 02-20-2024 End: 02-20-2024 ambulatory Jose David Tracee Cedeno LAB RE[facility] [place] Comment on above: Left hip pain (Prima ry Dx); Radiculopathy, lumbar region; Decreased ROM of lumbar spine; Weakness of trunk musculature Start: 02-18-2024 End: 02-18-2024 ambulatory 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 LAB [facility] [place] Comment on above: Left hip pain (Prima ry Dx); Radiculopathy, lumbar region; Decreased ROM of lumbar spine; Weakness of trunk musculature Start: 02-18-2024 End: 02-18-2024 ambulatory Injection Ryne [facility] Work Phone: Hematology/Oncology Comment on above: 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); Prostate cancer (HCC) Start: 02-16-2024 End: 02-16-2024 ambulatory Derrek YBARRA Facility:[facility] Start: 02-16-2024 End: 02-16-2024 ambulatory López Ocampo Facility:[facility] Start: 02-13-2024 End: 02-13-2024 ambulatory 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 [facility] [place] Comment on above: Left hip pain (Prima ry Dx); Radiculopathy, lumbar region; Decreased ROM of lumbar spine; Weakness of trunk musculature Start: 02-11-2024 End: 02-11-2024 ambulatory 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 [facility] [place] Comment on above: Left hip pain (Prima ry Dx); Radiculopathy, lumbar region; Decreased ROM of lumbar spine; Weakness of trunk musculature Start: 02-10-2024 End: 02-10-2024 Refill Dereje Herring MD Work Phone: Hematology/Oncology Comment on above: Refill Request Start: 02-09-2024 End: 02-09-2024 ambulatory Arsalan Ocampo MD Work Phone: [facility] [place] Comment on above: medical history Start: 02-05-2024 End: 02-05-2024 Telephone encounter Arsalan Ocampo MD Work Phone: [facility] Comment on above: Insurance Authorizat ion (cyclobenzaprine) Start: 02-05-2024 End: 02-06-2024 ambulatory López Ocampo Facility:[facility] Start: 02-03-2024 End: 02-03-2024 ambulatory ARSALAN Ag VIJAYA Facility:[facility] Start: 02-03-2024 End: 02-03-2024 Telephone encounter Arsalan Ocampo MD Work Phone: [facility] Comment on above: Results Start: 02-03-2024 End: 02-03-2024 Subsequent hospital visit by physician [facility] Work Phone: Radiology Comment on above: Left inguinal pain [ R10.32] Start: 02-03-2024 End: 02-03-2024 Patient encounter procedure Arsalan Ocampo MD Work Phone: [facility] Comment on above: Left inguinal pain ( Primary Dx); Spinal stenosis of lumbar region, unspecified whether neurogenic claudication present Start: 02-03-2024 End: 02-03-2024 ambulatory ARSALAN OCAMPO Facility:[facility] Start: 01-29-2024 End: 01-29-2024 ambulatory Endy Tate [...] Start: 01-21-2024 End: 01-21-2024 ambulatory Injection Ryne [facility] Work Phone: Hematology/Oncology Comment on above: 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); Prostate cancer (HCC) Right hip pain (Prim monica Dx); Prostate cancer (HCC); 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) Start: 12-30-2023 End: 12-30-2023 Telephone encounter Catherine Pearza APRN.PROGRAMMER BUSINESS Work Phone: [facility] Comment on above: Results; hip xray re sults Start: 12-24-2023 End: 12-24-2023 Subsequent hospital visit by physician [facility] [place] Work Phone: Radiology Comment on above: Left hip pain [M25.5 52] Start: 12-24-2023 End: 12-24-2023 Patient encounter procedure Catherine Peraza APRN.PROGRAMMER BUSINESS Work Phone: [facility] [place] Comment on above: Left hip pain (Prima ry Dx) Start: 12-24-2023 End: 12-24-2023 ambulatory ARSALAN OCAMPO Facility:[facility] Start: 12-17-2023 End: 12-17-2023 ambulatory Injection Ryne [facility] Work Phone: Hematology/Oncology Comment on above: Prostate cancer (HCC ) (Primary Dx); 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) Start: 12-11-2023 End: 12-12-2023 Telephone encounter Tee Ellis Work Phone: Hematology/Oncology Comment on above: Results Start: 12-11-2023 End: 12-11-2023 Emergency department patient visit López Ocampo Facility:[facility] Start: 12-10-2023 End: 12-10-2023 ambulatory ARSALAN OCAMPO Facility:[facility] Start: 12-10-2023 End: 12-10-2023 ambulatory ARSALAN OCAMPO Facility:[facility] Start: 12-10-2023 End: 12-10-2023 Subsequent hospital visit by physician [facility] Cat Scan Comment on above: 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, C79.51] Start: 12-04-2023 End: 12-05-2023 ambulatory Dereje Herring MD Work Phone: Hematology/Oncology Comment on above: recurring back pain Start: 12-02-2023 End: 12-02-2023 ambulatory ARSALAN OCAMPO Facility:[facility] Start: 12-02-2023 End: 12-02-2023 Patient encounter procedure Richie Dejesus MD Work Phone: Dermatology Comment on above: Xerosis cutis (Prima ry Dx); Actinic keratosis; Seborrheic keratosis; Lentigines; Cabrera angioma; Multiple benign nevi; Personal history of skin cancer Start: 11-19-2023 End: 11-19-2023 ambulatory Injection Ryne [facility] Work Phone: Hematology/Oncology Comment on above: 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 Work Phone: Cardiology Lab Comment on above: SOB (shortness of br eath) [R06.02] Start: 11-12-2023 ambulatory ARSALAN Puga acility:[facility] Start: 11-12-2023 End: 11-12-2023 Subsequent hospital visit by physician [facility] 2 Work Phone: Molecular Imaging Comment [...] Start: 10-16-2023 End: 10-16-2023 ambulatory ARSALAN OCAMPO Facility:[facility] Start: 10-16-2023 Telephone encounter Dorcas Champagne DO Work Phone: Cardiology Comment on above: Appointment Start: 10-03-2023 Refill Dereje gross MD Work Phone: Hematology/Oncology Comment on above: Refill Request Start: 10-02-2023 End: 10-02-2023 ambulatory Injection Ryne [facility] Work Phone: Hematology/Oncology Comment on above: Prostate cancer (HCC ) (Primary Dx) Start: 09-24-2023 End: 09-24-2023 ambulatory Injection Ryne [facility] Work Phone: Hematology/Oncology Comment on above: Prostate cancer (HCC ) (Primary Dx); 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) Start: 09-10-2023 Refill Catherine Peraza APRN.CNP Work Phone: [facility] [place] Comment on above: Refill Request Start: 08-27-2023 Telephone encounter Dereje dallas MD Work Phone: Hematology/Oncology Comment on above: Patient Update (richar stephen) Start: 08-27-2023 End: 08-27-2023 ambulatory Injection Ryne [facility] Work Phone: Hematology/Oncology Comment on above: Prostate cancer (HCC ) (Primary Dx); 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) Start: 08-13-2023 Refill Sanjeev tinajero APRN.PROGRAMMER BUSINESS Work Phone: Hematology/Oncology Comment on above: Refill Request Start: 08-04-2023 Telephone encounter Juanito Ybarra i, MD Work Phone: Cardiology Comment on above: Appointment Start: 07-31-2023 End: 07-31-2023 ambulatory Injection Ryne [facility] Work Phone: Hematology/Oncology Comment on above: 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); Prostate cancer (HCC) Start: 07-30-2023 Orders Only Dereje gross MD Work Phone: Hematology/Oncology Start: 06-17-2023 End: 06-17-2023 Refill Arsalan Ocampo MD Work Phone: Family [facility] Comment on above: Refill Request Results SOB (shortness of br eath) [R06.02] Start: 06-16-2023 Telephone encounter Sahara arriaga RN Cardiology Lab Comment on above: Reminder Call Start: 06-11-2023 Telephone encounter López Ocampo MD Work Phone: Family [facility] Comment on above: Results Start: 06-11-2023 End: 06-11-2023 Subsequent hospital visit by physician [facility] [place] Work Phone: Radiology Comment on above: SOB (shortness of br eath) [R06.02] Start: 06-11-2023 End: 06-11-2023 Patient encounter procedure Catherine Peraza APRN.PROGRAMMER BUSINESS Work Phone: Family [facility] Comment on above: SOB (shortness of br eath) (Primary Dx); Chest pain, unspecified type; Acute left-sided low back pain, unspecified whether sciatica present Start: 06-06-2023 Telephone encounter Dereje dallas MD Work Phone: Hematology/Oncology Comment on above: Patient Question Start: 06-05-2023 End: 06-05-2023 ambulatory Injection Ryne [facility] Work Phone: Hematology/Oncology Comment on above: Prostate cancer (HCC ) (Primary Dx); 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) Start: 05-16-2023 Refill Sanjeev Carpente r SENIOR PRODUCER.PROGRAMMER BUSINESS Work Phone: Hematology/Oncology Comment on above: Refill Request Start: 05-08-2023 End: 05-08-2023 ambulatory Injection Ryne [facility] Work Phone: Hematology/Oncology Comment on above: Prostate cancer (HCC ) (Primary Dx) Start: 03-17-2023 ambulatory Arsalan Ocampo MD Work Phone: Family [facility] [place] Comment on above: blood test results Start: 03-17-2023 Telephone encounter López Ocampo MD Work Phone: [facility] [place] Comment on above: Results Start: 03-13-2023 Telephone encounter Natalya gastelum RN Work Phone: Hematology/Oncology Comment on above: Patient Update (Richar stephen order) Start: 03-13-2023 End: 03-13-2023 ambulatory Injection Ryne [facility] Work Phone: Hematology/Oncology Comment on above: Prostate cancer (HCC ) (Primary Dx) Start: 02-18-2023 Refill Sanjeev Carpente r SENIOR PRODUCER.PROGRAMMER BUSINESS Work Phone: Hematology/Oncology Comment on above: Refill Request Start: 02-13-2023 End: 02-13-2023 ambulatory Injection Ryne [facility] Work Phone: Hematology/Oncology Comment on above: Prostate cancer (HCC ) (Primary Dx) Start: 01-21-2023 ambulatory Arsalan Ocampo MD Work Phone: [facility] [place] Comment on above: vaccinations on Mych art Start: 01-16-2023 End: 01-16-2023 ambulatory Injection Ryne [facility] Work Phone: Hematology/Oncology Comment on above: Prostate cancer (HCC ) (Primary Dx) Start: 01-15-2023 ambulatory Sanjeev Carpente r SENIOR PRODUCER.PROGRAMMER BUSINESS Work Phone: Hematology/Oncology Comment on above: calcium supplement Start: 01-14-2023 Refill Dereje gross MD Work Phone: Hematology/Oncology Comment on above: Refill Request Start: 12-19-2022 End: 12-19-2022 ambulatory Injection Ryne [facility] Work Phone: Hematology/Oncology Comment on above: Prostate cancer (HCC ) (Primary Dx) Start: 11-27-2022 End: 11-27-2022 Patient encounter procedure Richie Dejesus MD Work Phone: Dermatology Comment on above: Seborrheic keratosis (Primary Dx); Cabrera angioma; Lentigines; Multiple benign nevi; Actinic keratosis; Personal history of skin cancer; Senile purpura (HCC) Start: 11-21-2022 End: 11-21-2022 ambulatory Injection Ryne [facility] Work Phone: Hematology/Oncology Comment on above: Prostate cancer (HCC ) (Primary Dx) Start: 11-20-2022 Refill Sanjeev tinajero APRN.CNP Work Phone: Hematology/Oncology Comment on above: Refill Request Start: 11-19-2022 End: 11-19-2022 Patient encounter procedure Derrek Baker PA-C Work Phone: General Surgery Comment on above: Hemorrhoids, unspeci fied hemorrhoid type (Primary Dx); Perianal cyst Start: 10-24-2022 End: 10-24-2022 ambulatory Injection Ryne [facility] Work Phone: Hematology/Oncology Comment on above: Prostate cancer (HCC ) (Primary Dx) Start: 10-14-2022 End: 10-14-2022 ambulatory Injection Ryne [facility] Work Phone: Hematology/Oncology Comment on above: Prostate cancer (HCC ) (Primary Dx) Start: 09-30-2022 ambulatory Arsalan Ocampo MD Work Phone: [facility] Comment on above: Tetanus (Tdap) shot Start: 09-26-2022 End: 09-26-2022 ambulatory Injection Ryne [facility] Work Phone: Hematology/Oncology Comment on above: Prostate cancer (HCC ) (Primary Dx) Start: 09-23-2022 End: 09-23-2022 Emergency department patient visit ARSALAN OCAMPO MD Facility:B Start: 09-23-2022 End: 09-23-2022 Emergency department patient visit DR PERFECTO CRAWFORD MD [facility] Start: 08-19-2022 Telephone encounter Sanjeev cruz SENIOR PRODUCER.PROGRAMMER BUSINESS Work Phone: Hematology/Oncology Comment on above: Lab Orders Start: 08-16-2022 End: 08-16-2022 ambulatory Sanjeev Aranda SENIOR PRODUCER.PROGRAMMER BUSINESS Work Phone: Hematology/Oncology Comment on above: 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); 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) Start: 08-16-2022 End: 08-16-2022 Patient encounter procedure Sanjeev Aranda SENIOR PRODUCER.PROGRAMMER BUSINESS Work Phone: [facility] Start: 08-12-2022 Refill Gualberto Oliveira Work Phone: Hematology/Oncology Comment on above: Refill Request; Refi ll Request Start: 08-01-2022 End: 08-01-2022 [facility] Comment on above: Prostate cancer (HCC ) (Primary Dx) Start: 05-30-2022 End: 05-30-2022 Nursing evaluation of patient and report Nurse Urol [facility] Work Phone: Urology Comment on above: Prostate cancer (HCC ) (Primary Dx) Start: 05-17-2022 End: 05-17-2022 Patient encounter procedure Richie Dejesus MD Work Phone: Dermatology Comment on above: Actinic keratosis (P rimary Dx) Start: 05-08-2022 Telephone encounter Odalis farrar [facility] Work Phone: [facility] Comment on [...] evaluation of patient and report Nurse Urol [facility] Work Phone: Urology Comment on above: Prostate cancer (HCC ) (Primary Dx) Start: 03-08-2022 End: 03-08-2022 ambulatory Derrek Baker PA-C Work Phone: General Surgery Comment on above: Chronic superficial gastritis without bleeding (Primary Dx); Gastroesophageal reflux disease with esophagitis without hemorrhage; Family history of colon cancer Start: 03-08-2022 End: 03-08-2022 Telemedicine consultation with patient Derrek Baker PA-C Work Phone: [facility] Start: 03-06-2022 Telephone encounter López Ocampo MD Work Phone: [facility] [place] Comment on above: Results Start: 02-27-2022 End: 02-27-2022 Subsequent hospital visit by physician Lyn Mcgowan MD Work Phone: Ambulatory Surgery Comment on above: History of colon deidre yps [Z86.010] Start: 02-21-2022 End: 02-21-2022 Nursing evaluation of patient and report Nurse Urol [facility] Work Phone: Urology Comment on above: [...] procedure Lillian Clemente MD Work Phone: [facility] Start: 01-22-2022 ambulatory Arsalan Ocampo MD Work Phone: [facility] Comment on above: Flu Shot Start: 01-19-2022 Refill Lillian Clemente MD Work Phone: Hematology/Oncology Comment on above: Refill Request Start: 01-02-2022 Refill Lillian Clemente MD Work Phone: Hematology/Oncology Comment on above: Refill Request Start: 12-13-2021 End: 12-13-2021 Nursing evaluation of patient and report Nurse Urol [facility] Work Phone: Urology Comment on above: Malignant [...] evaluation of patient and report Nurse Urol [facility] Work Phone: Urology Comment on above: Prostate cancer (HCC ) (Primary Dx) Start: 11-13-2021 End: 11-13-2021 Patient encounter procedure Arsalan Ocampo MD Work Phone: [facility] Comment on above: Prostate cancer (HCC ) (Primary Dx); Bone metastasis (HCC); Benign prostatic hyperplasia, unspecified whether lower urinary tract symptoms present; 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); Gastroesophageal reflux disease, unspecified whether esophagitis present; History of skin cancer; Screening for colon cancer Start: 10-11-2021 End: 10-11-2021 Nursing evaluation of patient and report Nurse Urol [facility] Work Phone: Urology Comment on above: Prostate cancer (HCC ) Start: 10-05-2021 ambulatory Sp braden DO Work Phone: Urology Comment on above: Billing Number Start: 10-05-2021 E-mail encounter chacho braden caregiver Sp Mcekon DO Work Phone: [facility] Start: 09-05-2021 End: 09-05-2021 ambulatory SP MCKEON Facility:[facility] Start: 09-05-2021 End: 09-05-2021 Patient encounter procedure Sp Mckeon DO Work Phone: [facility] Comment on above: BPH with elevated PS A Start: 09-04-2021 ambulatory Jazlyn LOMBARDI III Facili ty:[facility] Start: 09-04-2021 End: 09-05-2021 Office outpatient new 60 minutes Jazlyn Lombardi MD Work Phone: Division of Medical Oncology at [facility] Comment on above: Prostate cancer (Jessica sherri [...] encounter procedure Lillian Clemente MD Work Phone: [facility] Start: 08-24-2021 End: 08-24-2021 Subsequent hospital visit by physician [facility] Work Phone: Nuclear Medicine Comment on above: 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, C79.51] Start: 08-24-2021 End: 08-24-2021 Subsequent hospital visit by physician Bashir Grijalva [facility] Work Phone: Nuclear Medicine Start: 08-16-2021 End: 08-16-2021 Nursing evaluation of patient and report Nurse Urol [facility] Work Phone: Urology Comment on above: Prostate cancer (HCC ) (Primary Dx) Start: 07-25-2021 Refill Luther horner MD Work Phone: [facility] Comment on above: Refill Request Start: 07-23-2021 Telephone encounter Natalya gastelum RN Work Phone: Hematology/Oncology Comment on above: Opened In Error Refill Request Start: 07-19-2021 End: 07-19-2021 Nursing evaluation of patient and report Nurse Urol [facility] Work Phone: Urology Comment on above: [...] Start: 02-14-2017 End: 02-14-2017 Ambulatory DORCAS WATERS Facility:[facility] Procedures Date Procedure Procedure Detail [...] rx cont ecg trcg only Catherine Podlogar SENIOR PRODUCER.PROGRAMMER BUSINESS Work Phone: Start: 06-11-2023 Radiologic exam chest 2 views Catherine Guerrero ogluba SENIOR PRODUCER.PROGRAMMER BUSINESS Work Phone: Start: 06-11-2023 Lipid 1996 panel - Serum or Plasma Catherine Podlogar SENIOR PRODUCER.PROGRAMMER BUSINESS Work Phone: Start: 03-13-2023 Lipid 1996 panel - Serum or Plasma Alexis Dorsey RN Work Phone: Start: 02-27-2022 Level iv surg pathology gross&microscopic exam Lyn Mcgowan MD Work Phone: Start: 02-27-2022 Esophagogastroduodenoscopy transoral diagnostic Derrek Baker PA-C Work Phone: Start: 02-27-2022 Colonoscopy flx dx w/collj spec when pfrmd Derrek Baker PA-C Work Phone: Start: 02-27-2022 Colonoscopy Arsalan Ocampo MD Work Phone: Start: 08-26-2021 Adult [...] Detail Author Start: 09-23-2032 Urine microalbumin profile [facility] Start: 10-12-2028 Urine microalbumin profile DTAP,TDAP,TD (3 - Td or Tdap) [facility] Start: 06-10-2028 Lipid panel Lipid Screening [facility] Start: 03-13-2028 Lipid 1996 panel - Serum or Plasma Lipid Screening [facility] Start: 03-13-2028 Lipid panel Lipid Screening [facility] Start: 09-09-2027 Diabetes Screening Diabetes Screening [facility] Start: 08-12-2027 Diabetes Screening Diabetes Screening [facility] Start: 07-15-2027 Diabetes Screening Diabetes Screening [facility] Start: 06-17-2027 Diabetes Screening Diabetes Screening [facility] Start: 05-12-2027 Diabetes Screening Diabetes Screening [facility] Start: 04-14-2027 Diabetes Screening Diabetes Screening [facility] Start: 03-17-2027 Diabetes Screening Diabetes Screening [facility] Start: 02-27-2027 Colonoscopy COLONOSCOPY [facility] Start: 02-27-2027 COLORECTAL CANCER SCREENING COLORECTAL CANCER SCREENING [facility] Start: 02-27-2027 Screening for malignant neoplasm of colon [facility] Start: 02-17-2027 Diabetes Screening Diabetes Screening [facility] Start: 02-12-2027 PROSTATE CANCER SCREENING DISCUSSION PROSTATE CANCER SCREENING DISCUSSION [facility] Start: 01-20-2027 Diabetes Screening Diabetes Screening [facility] Start: 12-16-2026 Diabetes Screening Diabetes Screening [facility] Start: 11-20-2026 PROSTATE CANCER SCREENING DISCUSSION PROSTATE CANCER SCREENING DISCUSSION [facility] Start: 11-18-2026 Diabetes Screening Diabetes Screening [facility] Start: 10-21-2026 Diabetes Screening Diabetes Screening [facility] Start: 09-23-2026 Diabetes Screening Diabetes Screening [facility] Start: 08-26-2026 Diabetes Screening Diabetes Screening [facility] Start: 08-24-2026 PROSTATE CANCER SCREENING DISCUSSION PROSTATE CANCER SCREENING DISCUSSION [facility] Start: 07-30-2026 Diabetes Screening Diabetes Screening [facility] Start: 06-10-2026 Diabetes Screening Diabetes Screening [facility] Start: 06-04-2026 Diabetes Screening Diabetes Screening [facility] Start: 05-28-2026 PROSTATE CANCER SCREENING DISCUSSION PROSTATE CANCER SCREENING DISCUSSION [facility] Start: 04-16-2026 Diabetes Screening Diabetes Screening [facility] Start: 03-13-2026 Diabetes Screening Diabetes Screening [facility] Start: 08-07-2025 DIABETES SCREEN DIABETES SCREEN [facility] Start: 08-07-2025 Diabetes Screening Diabetes Screening [facility] Start: 03-10-2025 Depression Screening Depression Screening [facility] Start: 02-12-2025 DIABETES SCREEN DIABETES SCREEN [facility] Start: 11-20-2024 DIABETES SCREEN DIABETES SCREEN [facility] Start: 11-03-2024 End: 11-03-2024 ambulatory 11/03/2024 10:45 AM EDT [facility] Hemat[facility]On[facility] [address] [place] [address] Wstr, Injection Ryne [facility] [address] [place] [address] QMO?ARANESP/LAB&OV EARLY* Hematology/Oncology Comment on above: QMO?ARANESP/LAB&OV EARLY* Start: 11-03-2024 End: 11-03-2024 [facility] Comment on above: (SO)CBC/BMP(S)* 3 MO OV/LAB EARLY/IN J TODAY* PHIL Start: 11-02-2024 End: 11-02-2024 ambulatory [facility] Comment on above: (SO)CBC/BMP(S)* 3 MO OV/LAB EARLY/IN J TODAY* ABRDENISEOVICH r/s from 11/03 QMO?ARANESP/LAB&OV E DARREN* Start: 10-06-2024 End: 10-06-2024 [facility] Comment on above: (SO)CBC/BMP(S)* QMO?ARANESP/QMO XGEV A/LAB EARLY* Start: 10-05-2024 End: 10-05-2024 ambulatory [facility] Comment on above: (SO)CBC/BMP(S)* QMO?ARANESP/LAB BAM Y* Start: 09-30-2024 End: 09-30-2024 Patient encounter procedure Dermatology Comment on above: fbsc per surgery FBSE Start: 09-15-2024 End: 09-15-2024 Nursing evaluation of patient and report 09/15/2024 9:40 AM EDT Nurse Visit Dermatology [address] [place] [address] Nurse, Derm Surgery [address] [place] [address] wound check/DA to see Dermatology Comment on above: wound check/DA to see Start: 09-09-2024 End: 09-09-2024 ambulatory 09/09/2024 9:45 AM EDT [facility] Hematology/Oncology [address] [place] [address] Wstr, Injection Ryne [facility] [address] [place] [address] ELIGUARD* Hematology/Oncology Comment on above: ELIGUARD* Start: 09-08-2024 End: 09-08-2024 ambulatory [facility] Comment on above: (SO)CBC/BMP(S)* QMO?ARANESP/QMO XGEV A/LAB EARLY/MDCR* QMO?ARANESP/QMO XGEV A/LAB EARLY* QMO?ARANESP/LAB BAM Y* OV/LAB&INJ EARLY* Start: 08-26-2024 End: 08-26-2024 Patient encounter procedure 08/26/2024 9:40 AM EDT Office Visit Cardiology [address] [place] [address] ECHO Cardiology Comment on above: ECHO Start: 08-24-2024 DIABETES SCREEN DIABETES SCREEN [facility] Start: 08-11-2024 End: 08-11-2024 ambulatory [facility] Comment on above: (SO)CBC/BMP(S)* 3 MO OV/LAB EARLY/IN J TODAY* QMO?ARANESP/QMO XGEV A/LAB&OV EARLY/MDCR* Start: 08-09-2024 End: 08-09-2024 Patient encounter procedure 08/09/2024 3:30 PM EDT Office Visit Cardiology [address] [address] Candace Guerra APRN.PROGRAMMER BUSINESS [address] [place] [address] DX: SOB (shortness of breath) [R06.02]; Chest pain, unspecified type Cardiology Comment on above: DX: SOB (shortness of breath) [R06.02]; Chest pain, unspecified type Start: 07-14-2024 End: 07-14-2024 ambulatory [facility] Comment on above: (SO)CBC/BMP(S)* QMO?ARANESP/QMO XGEV A/LAB EARLY/MDCR* Start: 07-09-2024 Covid-19 Vaccine () Covid-19 Vaccine () [facility] Start: 07-07-2024 End: 07-07-2024 Nursing evaluation of patient and report 07/07/2024 9:00 AM EDT Nurse Visit Dermatology [address] [place] [address] Nurse, Derm Surgery [address] [place] [address] suture removal Dermatology Comment on above: suture removal Start: 06-25-2024 End: 06-25-2024 Patient encounter procedure 06/25/2024 10:30 AM EDT Office Visit Cardiology [address] [address] Candace Guerra APRN.PROGRAMMER BUSINESS [address] [place] [address] DX: SOB (shortness of breath) [R06.02]; Chest pain, unspecified type Cardiology Comment on above: DX: SOB (shortness of breath) [R06.02]; Chest pain, unspecified type Start: 06-24-2024 End: 06-24-2024 Patient encounter procedure 06/24/2024 9:30 AM EDT Office Visit Radiation Oncology [address] [facility] [place] [address] Suresh Hodges MD [address] [place] [address] BEVERAGE STEWARD/SKIN 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 BRONSON/THIS DATE AND TIME PER PATIENT Radiation Oncology Comment on above: BEVERAGE STEWARD/SKIN 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 KIRTI SAUNDERS/THIS DATE AND TIME PER PATIENT Start: 06-18-2024 End: 06-18-2024 Patient encounter procedure 06/18/2024 8:45 AM EDT Office Visit Dermatology [address] [place] [address] Richie Dejesus MD [address] [place] [address] receck a couple of spots/possible bx Dermatology Comment on above: receck a couple of spots/possible bx Start: 06-17-2024 End: 06-17-2024 Patient encounter procedure Dermatology Comment on above: Mohs: Mohs: SCC right [place] n scalp, 2 pts Start: 06-16-2024 End: 06-16-2024 ambulatory [facility] Comment on above: (SO)CBC/BMP(S)* QMO?ARANESP/QMO XGEV A/LAB EARLY/MDCR* pt requested date Start: 06-16-2024 End: 06-16-2024 Patient encounter procedure 06/16/2024 8:45 AM EDT Office Visit Dermatology [address] [place] [address] Madelaine Bronson MD [address] [place] [address] Mohs: SCC right crown scalp, 4 pts Dermatology Comment on above: Mohs: SCC right crown scalp, 4 pts Start: 05-28-2024 DIABETES SCREEN DIABETES SCREEN [facility] Start: 05-12-2024 End: 05-12-2024 ambulatory [facility] Comment on above: (SO)CBC/BMP(S)* QMO?ARANESP/QMO XGEV A/LAB EARLY/MDCR* Start: 05-10-2024 End: 05-10-2024 Patient encounter procedure 05/10/2024 2:30 PM EST Office Visit Pain Management [address] [address] Gualberto Mcmahon MD [address] [facility] [place] [address] Osteoarthritis of spine with radiculopathy, lumbar region [M47.26] Pain Management Comment on above: Osteoarthritis of spine with radiculopat hy, lumbar region [M47.26] Start: 04-28-2024 End: 04-28-2024 Patient encounter procedure 04/28/2024 9:00 AM EST Office Visit Pain Management [address] [address] Gualberto Mcmahon MD [address] [facility] [place] [address] Osteoarthritis of spine with radiculopathy, lumbar region [M47.26] Pain Management Comment on above: Osteoarthritis of spine with radiculopat hy, lumbar region [M47.26] Start: 04-15-2024 End: 04-15-2024 Patient encounter procedure 04/15/2024 10:30 AM EST Office Visit Cardiology [address] [address] Candace Guerra APRN.PROGRAMMER BUSINESS [address] [place] [address] 6 month follow up Cardiology Comment on above: 6 month follow up Start: 04-14-2024 End: 04-14-2024 ambulatory Nikole [facility] Comment on above: (SO)CBC/BMP(S)* QMO?ARANESP/QMO XGEV A/LAB EARLY/MDCR* Start: 04-07-2024 Advance Directive Discussion Advance Directive Discussion [facility] Start: 04-01-2024 End: 04-01-2024 ambulatory 04/01/2024 2:15 PM EST OT/PT/Speech Visit [facility] [address] [place] [address] Endy Curran M, PT left hip [facility] Comment on above: left hip Start: 03-24-2024 End: 03-24-2024 ambulatory 03/24/2024 2:15 PM EST OT/PT/Speech Visit [facility] [address] [place] [address] Endy Curran M, PT left hip pain [facility] Comment on above: left hip pain Start: 03-19-2024 End: 03-19-2024 ambulatory 03/19/2024 3:00 PM EST OT/PT/Speech Visit [facility] [address] [place] [address] Endy Cruran M, PT left hip pain [facility] Comment on above: left hip pain Start: 03-19-2024 End: 03-19-2024 Patient encounter procedure 03/19/2024 10:45 AM EST Office Visit Dermatology [address] [place] [address] Richie Dejesus MD [address] [place] [address] Ak followo up Dermatology Comment on above: Ak followo up Start: 03-18-2024 End: 03-18-2024 ambulatory Hematology/Oncology Comment on above: Q6MO LUPRON/MDCR* (SO)CBC/BMP(S)* (SO)CBC/BMP(S)/QMO?A RANESP/QMO XGEVA/Q6MO LUPRON/MDCR* - this date per patient Start: 03-17-2024 End: 03-17-2024 ambulatory Nikole Armando [facility] Laboratory Comment on above: (SO)CBC/BMP(S)* (SO)CBC/BMP(S)/QMO?A RANESP/QMO XGEVA/Q6MO LUPRON/MDCR* - this date per patient QMO?ARANESP/QMO XGEV A/Q6MO LUPRON/LAB EARLY/MDCR* - this date per patient Start: 03-16-2024 End: 03-16-2024 ambulatory 03/16/2024 2:00 PM EST OT/PT/Speech Visit [facility] [address] [place] [address] 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, LAB REP left hip pain [facility] Comment on above: left hip pain Start: 03-12-2024 End: 03-12-2024 ambulatory 03/12/2024 11:45 AM EST OT/PT/Speech Visit [facility] [address] [place] [address] 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, LAB REP left hip pain [facility] Comment on above: left hip pain Start: 03-10-2024 End: 03-10-2024 Patient encounter procedure 03/10/2024 9:00 AM EST Office Visit [facility] [place] [address] [place] [address] PodlogarCatherine APRN.PROGRAMMER BUSINESS [address] [place] [address] medicare wellness [facility] [place] Comment on above: medicare wellness Start: 03-02-2024 End: 03-02-2024 ambulatory 03/02/2024 2:45 PM EST OT/PT/Speech Visit [facility] [address] [place] [address] 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, LAB REP left hip pain [facility] Comment on above: left hip pain Start: 02-27-2024 End: 02-27-2024 ambulatory 02/27/2024 11:45 AM EST OT/PT/Speech Visit [facility] [address] [place] [place] [address] 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, LAB REP Left hip pain [facility] Comment on above: Left hip pain Start: 02-25-2024 End: 02-25-[address] [facility] Comment on above: Left hip pain Left hip pain re- eval Start: 02-24-2024 End: 02-24-2024 Patient encounter procedure 02/24/2024 2:15 PM EST Office Visit Orthopaedics [address] [address] Vicente Roach MD [address] [place] [address] Left Hip Pain Orthopaedics Comment on above: Left Hip Pain Start: 02-23-2024 End: 02-23-2024 Patient encounter procedure 02/23/2024 4:15 PM EST Office Visit Orthopaedics [address] [place] [address] Vicente Roach MD [address] [place], [place] [address] Left Hip Pain Orthopaedics Comment on above: Left Hip Pain Start: 02-20-2024 End: 02-20-2024 ambulatory 02/20/2024 11:45 AM EST OT/PT/[facility] [address] [place] [address] Jose David Cedeno M, LAB REP Left hip pain [facility] Comment on above: Left hip pain Start: 02-18-2024 End: 02-18-2024 ambulatory 02/18/2024 1:15 PM EST OT/PT/[facility] [address] [place] [address] 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 M, LAB REP Left hip pain [facility] Comment on above: Left hip pain Start: 02-18-2024 End: 02-18-2024 ambulatory Nikole Armando [facility] Laboratory Comment on above: (SO)CBC/BMP(S)* (SO)CBC/BMP(S)/QMO?A RANESP/QMO XGEVA/MDCR* Start: 02-13-2024 End: 02-13-2024 ambulatory 02/13/2024 11:45 AM EST OT/PT/Speech Visit [facility] [address] [place] [address] 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, LAB REP Left hip pain [facility] Comment on above: Left hip pain Start: 02-11-2024 End: 02-11-2024 ambulatory [facility] Comment on above: (SO)CBC/BMP(S)* (SO)CBC/BMP(S)/QMO?A RANESP/QMO XGEVA/MDCR* Left hip pain Start: 02-03-2024 End: 02-03-2024 Patient encounter procedure 02/03/2024 10:00 AM EDT Office Visit [facility] [address] [place], [place] [id number] Arsalan Ocampo MD [address] [place], [place] [id number] medicare wellness [facility] Comment on above: medicare wellness Start: 01-31-2024 RSV Vaccine (1 - 1-dose 60+ series) RSV Vaccine (1 - 1-dose 60+ series) [facility] Comment on above: Postponed from 2013 (Declined at t his time) Start: 01-29-2024 End: 01-29-2024 ambulatory 01/29/2024 9:30 AM EDT OT/PT/Speech Visit [facility] [address] [place] [address] Endy Curran, PT Left hip pain [M25.552] [facility] Comment on above: Left hip pain [M25.552] Start: 01-21-2024 End: 01-21-2024 ambulatory [facility] Comment on above: (SO)CBC/BMP(S)* (SO)CBC/BMP(S)/QMO?A RANESP/QMO XGEVA/MDCR* OV/LABS & INJECTION TODAY* Start: 01-14-2024 End: 01-14-2024 [facility] Laboratory Comment on above: (SO)CBC/BMP(S)* (SO)CBC/BMP(S)/QMO?A RANESP/QMO XGEVA/MDCR* Start: 12-17-2023 End: 12-17-2023 [facility] Comment on above: (SO)CBC/BMP(S)* (SO)CBC/BMP(S)/QMO?A RANESP/QMO XGEVA/MDCR* Start: 12-10-2023 End: 12-10-2023 Patient encounter procedure Cat Scan Comment on above: 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, C79.51]; Abdominal pain, unspecified abdominal location [R10.9]; Acute left-sided low back pain, unspecified whether sciatica present [M54.50] Start: 12-07-2023 Covid-19 Vaccine ( season) Covid-19 Vaccine () [facility] Start: 12-07-2023 Covid-19 Vaccine ( season) Covid-19 Vaccine () [facility] Start: 12-07-2023 Influenza vaccination Influ[facility] Start: 12-02-2023 End: 12-02-2023 Patient encounter procedure 12/02/2023 9:30 AM EDT Office Visit Dermatology [address] [place], [place] [id number] Richie Dejesus MD [address] [place] [address] FBSE Dermatology Comment on above: FBSE Start: 11-22-2023 End: 02-21-2024 HEMOGLOBIN EVALUATION CASCADE HEMOGLOBIN EVALUATION CASCADE Lab Routine 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) Expected: 11/22/2023, Expires: 02/21/2024 [facility] Comment on above: Expected: 11/22/2023, Expires: Start: 11-19-2023 End: 11-19-2023 [facility] Laboratory Comment on above: (SO)CBC/BMP(S)* (SO)CBC/BMP(S)/QMO?A RANESP/QMO XGEVA/MDCR* Start: 11-12-2023 Subsequent hospital visit by physician 11/12/2023 9:45 AM EDT Hospital Encounter Cardiology Lab [address] [place] [address] SOB (shortness of breath) [R06.02] Cardiology Lab Comment on above: SOB (shortness of breath) [R06.02] Start: 11-12-2023 End: 11-12-2023 Patient encounter procedure 11/12/2023 8:45 AM EDT Appointment Molecular Imaging [address] [place] [id number] EPIC ORDER Molecular Imaging Comment on above: EPIC ORDER Start: 10-22-2023 End: 10-21-2024 Cobalamin (Vitamin B12) [Mass/volume] in Serum or Plasma VITAMIN B12 Lab Routine 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) Expected: 10/22/2023, Expires: 10/21/2024 [facility] Comment on above: Expected: 10/22/2023, Expires: Start: 10-22-2023 End: 10-21-2024 Ferritin [Mass/volume] in Serum or Plasma FERRITIN Lab Routine 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) Expected: 10/22/2023, Expires: 10/21/2024 [facility] Comment on above: Expected: 10/22/2023, Expires: Start: 10-22-2023 End: 10-21-2024 Iron and Iron binding capacity panel - Serum or Plasma IRON AND TIBC Lab Routine 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) Expected: 10/22/2023 (Approximate), Expires: 10/21/2024 [facility] Comment on above: Expected: 10/22/2023 (Approximate), Expi res: 10/21/2024 Start: 10-22-2023 End: 10-22-2023 ambulatory Nikole Armando [facility] Laboratory Comment on above: (SO)CBC/BMP(S)* (SO)CBC/BMP(S)/QMO?A RANESP/QMO XGEVA/MDCR* 7 MO OVLAB EARLY/INJ ECTINS TODAY* 7 MO OV/LAB EARLY/IN J TODAY* 7 MO OV/LAB 10/19/INJ TODAY* Start: 10-20-2023 End: 10-20-2023 ambulatory 10/20/2023 8:00 AM EDT Results Only Nikole Hoangwn [facility] Laboratory [address] [place] [address] (SO)CBC/BMP(S)/PSA* [facility] Laboratory Comment on above: (SO)CBC/BMP(S)/PSA* Start: 10-16-2023 End: 10-16-2023 Patient encounter procedure 10/16/2023 2:20 PM EDT Office Visit Cardiology [address], [place] [id number] Dorcas Champagne, [address], [place] [id number] SOB (shortness of breath) [R06.02]; Chest pain, unspecified type [R07.9] Cardiology Comment on above: SOB (shortness of breath) [R06.02]; Ches t pain, unspecified type [R07.9] Start: 10-13-2023 Lipid 1996 panel - Serum or Plasma Lipid Screening [facility] Start: 10-13-2023 LIPID SCREEN LIPID SCREEN [facility] Start: 10-02-2023 End: 10-02-2023 ambulatory 10/02/2023 8:45 AM EDT Infusion Center Hematology/Oncology [address] [place] [address] Wstr, Injection Ryne [facility] [address] [place] [address] Q6MO LUPRON/MDCR* Hematology/Oncology Comment on above: Q6MO LUPRON/MDCR* Start: 09-24-2023 End: 09-24-2023 ambulatory Nikole Hoangwn [facility] Laboratory Comment on above: (SO)CBC/BMP(S)* (SO)CBC/BMP(S)/QMO?A RANESP/QMO XGEVA/MDCR* Start: 09-10-2023 End: 09-10-2023 Patient encounter procedure 09/10/2023 9:20 AM EDT Office Visit Cardiology [address] [place] [address] Juanito Mcfarlane MD [address] [place] [address] SOB (shortness of breath) [R06.02]; Chest pain, unspecified type [R07.9] Cardiology Comment on above: SOB (shortness of breath) [R06.02]; Ches t pain, unspecified type [R07.9] Start: 08-27-2023 End: 08-27-2023 ambulatory [facility] Laboratory Comment on above: (SO)CBC/BMP(S)* (SO)CBC/BMP(S)/QMO?A RANESP/QMO XGEVA/MDCR* Start: 07-31-2023 End: 07-31-2023 ambulatory [facility] Laboratory Comment on above: (SO)CBC/BMP(S)* (SO)CBC/BMP(S)/QMO?A RANESP/QMO XGEVA/MDCR* Start: 05-19-2023 Covid-19 Vaccine ( season) Covid-19 Vaccine () [facility] Start: 04-07-2023 Advance Directive Discussion Advance Directive Discussion [facility] Start: 04-07-2023 Behavioral Health Screening Behavioral Health Screening [facility] Start: 04-07-2023 Depression Assessment Depression Assessment [facility] Start: 03-18-2023 End: 06-17-2023 Comprehensive metabolic 2000 panel - Serum or Plasma COMP METABOLIC PANEL Lab Routine Hyperlipidemia, mixed Expected: 03/18/2023, Expires: 06/17/2023 [facility] Work Phone: Comment on above: Expected: 03/18/2023, Expires: Start: 03-18-2023 End: 06-17-2023 LIPID PANEL, NONFASTING LIPID PANEL, NONFASTING Lab Routine Hyperlipidemia, mixed Expected: 03/18/2023, Expires: 06/17/2023 [facility] Work Phone: Comment on above: Expected: 03/18/2023, Expires: Start: 03-13-2023 Covid-19 Vaccine ( season) Covid-19 Vaccine ( season) [facility] Start: 03-11-2023 Covid-19 Vaccine () Covid-19 Vaccine () [facility] Start: 12-06-2022 Covid-19 Vaccine () Covid-19 Vaccine () [facility] Start: 12-06-2022 Influenza vaccination [facility] Start: 11-13-2022 COVID-19 VACCINE (4 - Booster for Moderna series) COVID-19 VACCINE (4 - Booster for Moderna series) [facility] Comment on above: Postponed from 05/17/2021 (Declined at t his time) Start: 08-26-2022 Adult depression screening assessment DEPRESSION SCREENING [facility] Start: 04-07-2022 ADVANCE DIRECTIVE DISCUSSION ADVANCE DIRECTIVE DISCUSSION [facility] Start: 04-07-2022 DEPRESSION ASSESSMENT DEPRESSION ASSESSMENT [facility] Start: 03-11-2022 Adult depression screening assessment DEPRESSION SCREENING [facility] Start: 02-10-2022 Colonoscopy COLONOSCOPY [facility] Start: 02-10-2022 COLORECTAL CANCER SCREENING COLORECTAL CANCER SCREENING [facility] Start: 01-17-2022 COVID-19 VACCINE (5 - Booster for Moderna series) COVID-19 VACCINE (5 - Booster for Moderna series) [facility] Start: 01-17-2022 COVID-19 VACCINE (5 - Moderna series) COVID-19 VACCINE (5 - Moderna series) [facility] Start: 12-06-2021 Influenza vaccination INFLUENZA (#1) [facility] Start: 05-25-2021 COVID-19 VACCINE (4 - Booster for Moderna series) COVID-19 VACCINE (4 - Booster for Moderna series) [facility] Start: 04-07-2021 ADVANCE DIRECTIVE DISCUSSION ADVANCE DIRECTIVE DISCUSSION [facility] Start: 04-07-2021 DEPRESSION ASSESSMENT DEPRESSION ASSESSMENT [facility] Start: 10-06-2021 PNEUMOVAX AGE 65 AND OVER WITH 5YR LOOKBACK (#1) PNEUMOVAX AGE 65 AND OVER WITH 5YR LOOKBACK (#1) [facility] Start: 02-03-2020 FECAL OCCULT BLOOD FECAL OCCULT BLOOD [facility] Start: 02-03-2020 Screening for malignant neoplasm of colon Fecal Occult Blood [facility] Start: 2018 Abdominal aortic aneurysm screening ABDOMINAL AORTIC ANEURYSM HIGH RISK SCREEN [facility] Start: 2018 Pneumococcal vaccination PNEUMOCOCCAL VACCINE SERIES (1 - PCV) [facility] Start: 2013 RSV Vaccine (1 - 1-dose 60+ series) RSV Vaccine (1 - 1-dose 60+ series) [facility] Start: 2003 Prostate specific antigen measurement PROSTATE CANCER SCREENING DISCUSSION [facility] Start: 2003 Zoster vaccine hzv live for subcutaneous use ZOSTER (SHINGLES) VACCINE (1 of 2) [facility] Start: 1998 COLOGUARD (FIT-DNA) COLOGUARD (FIT-DNA) [facility] Start: 1998 Colonoscopy COLORECTAL CANCER SCREENING DISCUSSION [facility] Start: [address] COLONOGRAPHY [facility] Start: 1998 Screening for malignant neoplasm of colon [facility] Start: 1998 SIGMOIDOSCOPY SIGMOIDOSCOPY [facility] Start: 1993 Fasting lipid profile LIPID SCREENING [facility] Start: 1972 Third diphtheria, tetanus and acellular pertussis (DTaP) vaccination TDAP (ADULT) [facility] Start: 1971 Anxiety Screening Anxiety Screening [facility] Start: 1971 Depression Screening Depression Screening [facility] Start: 1971 Tetanus vaccination TETANUS [facility] Start: 1958 COVID-19 VACCINE (#1) COVID-19 VACCINE (#1) [facility] Start: 1953 Hepatitis C antibody, confirmatory test HEPATITIS C VIRUS SCREENING [facility] End: 10-21-2024 CBC W Auto Differential panel - Blood COMPLETE BLOOD COUNT AND DIFFERENTIAL Lab Routine 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) Every 3 months for 4 Occurrences starting 10/22/2023 until 10/21/2024 [facility] Comment on above: Every 3 months for 4 Occurrences startin g 10/22/2023 until 10/21/2024 End: 01-03-2025 CT Abdomen and Pelvis WO contrast CT ABD/PEL WO IVCON Radiology STAT Prostate cancer metastatic to bone (HCC) Abdominal pain, unspecified abdominal location Acute left-sided low back pain, unspecified whether sciatica present 1 Occurrences starting 12/05/2023 until 01/03/2025 [facility] Work Phone: Comment on above: 1 Occurrences starting 12/05/2023 until 01/03/2025 End: 01-03-2025 CT Lumbar spine W contrast IV CT LUMBAR SPINE W IVCON Radiology STAT Prostate cancer metastatic to bone (HCC) Abdominal pain, unspecified abdominal location Acute left-sided low back pain, unspecified whether sciatica present 1 Occurrences starting 12/05/2023 until 01/03/2025 [facility] Comment on above: 1 Occurrences starting 12/05/2023 until 01/03/2025 ECG COMPLETE ECG COMPLETE ECG Routine SOB (shortness of breath) Chest pain, unspecified type Ordered: 06/11/2023 [facility] Work Phone: Comment on above: Ordered: 06/11/2023 End: 06-10-2024 Echocardiography ECHO Cardiology Routine SOB (shortness of breath) Chest pain, unspecified type 1 Occurrences starting 06/11/2023 until 06/10/2024 [facility] Work Phone: Comment on above: 1 Occurrences starting 06/11/2023 until 06/10/2024 End: 08-09-2025 Echocardiography ECHO Cardiology Routine SOB (shortness of breath) 1 Occurrences starting 08/09/2024 until 08/09/2025 [facility] Work Phone: Comment on above: 1 Occurrences starting 08/09/2024 until 08/09/2025 End: 06-10-2024 EXERCISE STRESS ECG (WITHOUT IMAGING) EXERCISE STRESS ECG (WITHOUT IMAGING) Cardiology ANAMARIA SOB (shortness of breath) Chest pain, unspecified type 1 Occurrences starting 06/11/2023 until 06/10/2024 [facility] Work Phone: Comment on above: 1 Occurrences starting 06/11/2023 until 06/10/2024 End: 11-14-2024 NM Heart Perfusion W multiple states of exercise NM CARDIAC PERF STRESS/EXERCISE Radiology Routine SOB (shortness of breath) Abnormal ECG Chest pain, unspecified type Mixed hyperlipidemia 1 Occurrences starting 10/16/2023 until 11/14/2024 [facility] Work Phone: Comment on above: 1 Occurrences starting 10/16/2023 until 11/14/2024 End: 07-30-2024 Prostate specific Ag [Mass/volume] in Serum or Plasma PROSTATE-SPECIFIC ANTIGEN DIAGNOSTIC Lab Routine Prostate cancer (HCC) Every 3 months for 4 Occurrences starting 07/31/2023 until 07/30/2024 [facility] Work Phone: Comment on above: Every 3 months for 4 Occurrences startin g 07/31/2023 until 07/30/2024 End: 10-21-2024 Prostate specific Ag [Mass/volume] in Serum or Plasma PROSTATE-SPECIFIC ANTIGEN DIAGNOSTIC Lab Routine Prostate cancer metastatic to bone (HCC) Every 3 months for 4 Occurrences starting 10/22/2023 until 10/21/2024 [facility] Work Phone: Comment on above: Every 3 months for 4 Occurrences startin g 10/22/2023 until 10/21/2024 SURGICAL PATHOLOGY SURGICAL PATH OLOGY Lab Routine Skin neoplasm 05/04/2024 12:50 PM EST [facility] Work Phone: Tissue Pathology bio psy report SURGICAL PATHOLOGY Lab Routine Squamous cell carcinoma of scalp 06/17/2024 10:36 AM EDT [facility] Work Phone: End: 01-22-2025 XR Pelvis and Hip - left AP and Lateral frog XR HIP GENERAL 3V PELV/AP/LAT LEFT Radiology Routine Left hip pain 1 Occurrences starting 12/24/2023 until 01/22/2025 [facility] Work Phone: Comment on above: 1 Occurrences starting 12/24/2023 until 01/22/2025 XR Pelvis and Hip - left AP and Lateral frog XR HIP GENERAL 3V PELV/AP/LAT LEFT Radiology Routine Left hip pain 12/24/2023 12:18 PM EDT [facility] Immunizations Immunization Date Immunization Notes Care Provider Fa [facility] 04-23-2024 respiratory syncytia l virus (RSV) vaccine, adjuvanted (AREXVY) Richie Dejesus MD Work Phone: [facility] 01-09-2024 influenza, high dose seasonal, preservative-free Arsalan Ocampo MD Work Phone: [facility] 03-19-2023 respiratory syncytia l virus (RSV) vaccine, adjuvanted (AREXVY) Injection Ws Work Phone: [facility] 01-16-2023 COVID-19 vaccine, ag e 12+ yr (MODERNShireen) Arsalan Ocampo MD Work Phone: [facility] 01-14-2023 COVID-19 original vaccine, full dose, monovalent (MODERNA) Arsalan Ocampo MD Work Phone: [facility] 12-25-2022 influenza (aIIV4) vaccine, age 65+ yr, quadrivalent, PF (FLUAD QUAD) Arsalan Ocampo MD Work Phone: [facility] 12-25-2022 influenza virus vaccine, unspecified formulation Dorcas Champagne DO Work Phone: [facility] 09-23-2022 tetanus toxoid, redu olinda diphtheria toxoid, and acellular pertussis vaccine, adsorbed DR PERFECTO CRAWFORD MD [facility] 01-20-2022 influenza (aIIV4) vaccine, age 65+ yr, quadrivalent, PF (FLUAD QUADRIVALENT) Arsalan Ocampo MD Work Phone: [facility] 01-20-2022 influenza virus vaccine, unspecified formulation Injection Wstr Work Phone: [facility] 06-19-2021 pneumococcal (PCV20) vaccine, 20 valent (PREVNAR 20) Lillian Clemente MD Work Phone: [facility] Work Phone: 12-26-2020 influenza, high dose seasonal, preservative-free Lillian Clemente MD Work Phone: [facility] 12-26-2020 influenza, high-dose , quadrivalent vaccine (FLUZONE HIGH DOSE QUADRIVALENT) Lillian Clemente MD Work Phone: [facility] 06-23-2020 COVID-19 vaccine, fu ll dose (MODERNA) Lillian Clemente MD Work Phone: [facility] 05-26-2020 COVID-19 vaccine, fu ll dose (MODERNA) Lillian Clemente MD Work Phone: [facility] 02-16-2020 zoster vaccine recombinant Lillian Clemente MD Work Phone: [facility] 12-08-2019 influenza, high-dose , quadrivalent vaccine (FLUZONE HIGH DOSE QUADRIVALENT) Lillian Clemente MD Work Phone: [facility] 12-08-2019 zoster vaccine recombinant Lillian Clemente MD Work Phone: [facility] 12-15-2018 influenza, high dose seasonal, preservative-free Lillian Clemente MD Work Phone: [facility] 12-15-2018 Influenza, injectabl e, Madin Sanjeev Canine Kidney, preservative free, quadrivalent Lillian Clemente MD Work Phone: [facility] Work Phone: 10-12-2018 pneumococcal conjuga te vaccine, 13 valent Lillian Clemente MD Work Phone: [facility] 01-28-2018 Influenza, injectabl e, Madin Sanjeev Canine Kidney, preservative free, quadrivalent Lillian Clemente MD Work Phone: [facility] Work Phone: 12-17-2016 influenza, injectabl e, quadrivalent, preservative free Lillian Clemente MD Work Phone: [facility] Work Phone: 12-17-2016 influenza, seasonal, injectable Lillian Clemente MD Work Phone: [facility] 01-11-2016 pneumococcal polysaccharide vaccine, 23 valent Lillian Clemente MD Work Phone: [facility] 12-07-2015 influenza, injectabl e, quadrivalent, contains preservative Lillian Clemente MD Work Phone: [facility] 11-24-2015 influenza, injectabl e, quadrivalent, preservative free Lillian Clemente MD Work Phone: [facility] Work Phone: 12-26-2010 influenza virus vaccine, unspecified formulation Lillian Clemente MD Work Phone: [facility] Work Phone: 04-05-2009 novel [id number], preservative-free, injectable Lillian Clemente MD Work Phone: [facility] Work Phone: 01-21-2008 tetanus toxoid, redu olinda diphtheria toxoid, and acellular pertussis vaccine, adsorbed Lillian Clemente MD Work Phone: [facility] Work Phone: Payers Date Payer Category Payer Self-pay 2021 Medicare [id number] 2021 Private Health Insurance [employer] [id number] 2021-Present [phone] [address] [place] [address] Indemnity [id number] 2021 Private Health Insurance [id number] 2021 Unknown [id number] 2018 Medicare [id number] 2018 Medicare [id number] 2016 Unknown [id number] 2002 Unknown [id number] 1953 Unknown [id number] 1953 Unknown [id number] Unknown [id number] Unknown [id number] Unknown [id number] Unknown [id number] Unknown [id number] Unknown [id number] Unknown [id number] Social History Date Type Detail Facility Start: 07-13-2013 End: 12-24-2023 Tobacco smoking status NHIS Ex-smoker [facility] Start: 01-13-1971 End: 07-13-1973 History of tobacco use Current smoker [facility] Start: 01-13-1971 End: 07-13-1973 History of tobacco use Cigarette Smoker [facility] Start: 07-13-2013 End: 10-29-2022 Cigarettes smoked current (pack per day) - Reported 0.25 [facility] Start: 07-13-2013 End: 12-24-2023 Tobacco use and exposure Smokeless tobacco non-user [facility] Start: 06-21-2021 End: 02-27-2022 Alcohol intake Current drinker of alcohol (finding) [facility] Start: 06-28-2020 History SDOH Alcohol Frequency 4 [facility] Start: 06-28-2020 End: 04-09-2021 History SDOH Alcohol Std Drinks 1 [facility] Start: 08-09-2020 History SDOH Alcohol Comment occasionally [facility] Start: 06-28-2020 History SDOH Social Connections Phone 5 [facility] Start: 06-28-2020 History SDOH Social Connections Gnosticism 3 [facility] Start: 06-28-2020 History SDOH Social Connections Membership 98 [facility] Start: 06-28-2020 End: 04-09-2021 History SDOH Transport Med 2 [facility] Start: 06-28-2020 Education 17 [facility] Start: 1955 Sex Assigned At Male [facility] Start: 06-11-2021 End: 02-27-2022 Exposure to SARS-CoV-2 (event) Not sure [facility] Start: 1955 Sex Assigned At Not on file [facility] Sex Assigned At Sex [facility] Start: 06-28-2020 End: 10-29-2022 Social connection and isolation panel [facility] Do you belong to any clubs or organizations such as alevism groups, unions, fraternal or athletic groups, or school groups? Patient refused [facility] Are you now , , , , never or living with a partner? [facility] How often to you hav e a drink containing alcohol? 2-3 time sa week [facility] How many standard dr inks containing alcohol do you have on a typical day? 1 or 2 [facility] How often do you hav e 6 or more drinks on 1 occasion? Never [facility] Do you feel stress - tense, restless, nervous, or anxious, or unable to sleep at night because your mind is troubled all the time - these days [OSQ] Not at all [facility] (I/We) worried layla er (my/our) food would run out before (I/we) got money to buy more. Never true [facility] In the past 12 month s, was there a time when you were not able to pay the mortgage or rent on time? No [facility] Start: 10-07-2018 Gender identity Identifies as male gender (finding) [facility] Start: 10-11-2019 Sexual orientation Heterosexual (finding) [facility] Do you belong to any clubs or organizations such as alevism groups, unions, [employer] or athletic groups, or school groups? Yes [facility] Do you feel stress - tense, restless, nervous, or anxious, or unable to sleep at night because your mind is troubled all the time - these days [OSQ] Only a little [facility] Start: 01-30-2023 End: 09-08-2024 Alcohol intake Ex-drinker (finding) [facility] Goals Date Patient Goal Desired Activity /State Personal health goal Functional Status Date Assessment Result Facility 09-23-2022 Functional Status Up ad jerrell Kaity [facility] [place] 10-11-2014 Are you deaf, or do you have serious difficulty hearing No 10/11/2014 1:54 PM Mariangel Isaac MA No [facility] 10-11-2014 Are you blind, or do you have serious difficulty seeing, even when wearing glasses No 10/11/2014 1:54 PM Mariangel Isaac MA No [facility] 10-11-2014 Do you have serious difficulty walking or climbing stairs No 10/11/2014 1:54 PM Mariangel Isaac MA No [facility] 10-11-2014 Do you have difficul ty dressing or bathing No 10/11/2014 1:54 PM EDT Mariangel Baum MA No [facility] 10-11-2014 Because of a physica l, mental, or emotional condition, do you have difficulty doing errands alone such as visiting a physician's office or shopping No 10/11/2014 1:54 PM EDT Mariangel Baum MA No [facility] Mental Status Date Assessment Result Facility 09-23-2022 Mental Status Orientation Oriented x 4 [facility] 10-11-2014 Because of a physica l, mental, or emotional condition, do you have serious difficulty concentrating, remembering, or making decisions No 10/11/2014 1:54 PM EDT Mariangel Baum MA No [facility] Clinical Notes 07-13-2013 to 09-10-2024 Lorin Zhang LPN - 09/10/2024 1:23 PM Lorin Luque LPN - 09/08/2024 11:11 AM EDTTelephone Encounter - Roseanna Moore RN - 08/20/2024 4:45 PM Lorin Luque LPN - 08/11/2024 9:41 AM EDT Note Date & Type Note Facility 09-10-2024 Note [facility] 09-10-2024 History of Present illness Narrative Patient here for injection of Eligard. Given SQ in RLQ. Patient tolerated well. Pt returns for injection today, Wednesdays injection kit malfunction. She additional information from villa Herring on 09/08/24 Lorin Zhang LPN documented in this encounter [facility] 09-08-2024 Note [facility] 09-08-2024 History of Present illness Narrative [...] with Dr Herring. documented in this encounter [facility] 09-08-2024 Note [facility] 08-27-2024 Note [facility] 08-20-2024 Telephone encounter Note Spoke to BEVERAGE STEWARD. Patient informed that diarrhea/flu-like symptoms are not [...] he changes his mind. Roseanna Moore RN [facility] 08-20-2024 Miscellaneous Notes Spoke to BEVERAGE STEWARD. Patient informed that diarrhea/flu-like symptoms are not [...] Roseanna Moore RN documented in this encounter [facility] 08-11-2024 Note HNO ID: [id number] Author: LORIN ZHANG LPN Service: ? Author Type: LICENSED NURSE Type: Progress Notes Filed: 08/11/2024 09:48 Note Text: Xgeva and Aranesp injections held today per office visit with Dr Herring today. Lorin Zhang LPN [facility] 08-11-2024 History of Present illness Narrative Xgeva and Aranesp injections held today per office visit with Dr Herring today. Lorin Zhang LPN documented in this encounter [facility] 08-11-2024 History of Present illness Narrative (Elements [...] which included preparing to see the patient, dphq-ev-rcrp patient care, completing clinical documentation, obtaining and/or reviewing separately obtained history, counseling and educating the patient/family/caregiver, ordering medications, tests, or procedures, independently interpreting results (not separately reported), and communicating results to the patient/family/caregiver. Electronically Signed: Dereje Herring MD August 11, 2024 documented in this encounter [facility] 08-11-2024 Note [facility] 08-09-2024 Instructions SoloCandace prado APRN.CNP - 08/09/2024 3:58 PM EDT PLAN AND RECOMMENDATIONS: Echocardiogram Bone broth Follow up 1 year CONTACT INFORMATION: Candace Guerra APRN.CNP Cardiology Nurse Practitioner Section of Regional Cardiology [facility] Dept of Cardiovascular Medicine [facility] [place] [address] [address] Office Office documented in this encounter [facility] 08-09-2024 Note [facility] 08-09-2024 History of Present illness Narrative Images from the original note were not included. [facility] [place] jenelle Bustos [facility] Department of Cardiovascular Medicine SECTION OF CLINICAL CARDIOLOGY OUTPATIENT VISIT DATE August 09, 2024 OUTPATIENT VISIT TYPE ESTABLISHED PRIMARY CARE PHYSICIAN: Arsalan Ocampo [address] [place] [address] REFERRING PHYSICIAN: Dorcas Champagne [address] [facility] [address] CHIEF COMPLAINT: Follow Up (DX: SOB, Chest [...] SURGICAL HISTORY Procedure Laterality Date APPENDECTOMY 02/05/2024 [facility] COLONOSCOPY 02/27/2022 COLONOSCOPY FLX DX W/COLLJ SPEC [...] up 1 year CONTACT INFORMATION: Candace Guerra APRN.PROGRAMMER BUSINESS Cardiology Nurse Practitioner Section of Regional Cardiology [facility] Dept of Cardiovascular Medicine [facility] [place] [address] [place] [address] Office Office This note was partially generated using transOMIC voice recognition system and may contain errors related to that system including grammar, punctuation, spelling, and words that may be inappropriate documented in this encounter [facility] 07-14-2024 Note [facility] 07-14-2024 History of Present illness Narrative Patient here for injection of Xgeva, given SQ in right arm. Pt denies any jaw or tooth pain. Also given Aranesp given SQ in left arm. Pt tolerated well. Lorin Zhang LPN documented in this encounter [facility] 07-07-2024 History of Present illness Narrative PROCEDURE [...] 2024 11:12 AM documented in this encounter [facility] 07-07-2024 Note [facility] 07-07-2024 Telephone encounter Note I called [...] needs to have surveillance follow-ups with his maintenance welder and he told me that he will. [facility] Work Phone: 07-07-2024 Miscellaneous Notes I called [...] needs to have surveillance follow-ups with his maintenance welder and he told me that he will. documented in this encounter [facility] 06-24-2024 Note [facility] 06-24-2024 History of Present illness Narrative [...] SURGICAL HISTORY Procedure Laterality Date APPENDECTOMY 02/05/2024 [facility] COLONOSCOPY 02/27/2022 COLONOSCOPY FLX DX W/COLLJ SPEC [...] by: Suresh Hodges MD cc: Arsalan Ocampo [address] [place] [address] [facility] Bronson [address] [facility] [address] Rad[facility] Therapy - Nursing Note (Consult) PATIENT NAME: Luther Castillo PATIENT June 24, 2024 [facility] FACILITY/LOCATION: [place] Chief Complaint: consult Reason for visit: Consult. Referring physician: Internal provider Dr Prieto Subjective Data: see pain assessment Additional Data Do you want to see a Sales Office Assistant? No Are you interested in information about fertility? No Status: Patient is male Stress Scale: On a scale of 0 to 10, what number best describes how much distress you have experienced in the past week?(0 being no distress and 10 being extreme distress) 2 Social work notified: no SIGNED by: Mercedez Maldonado RN documented in this encounter [facility] 06-24-2024 Note [facility] 06-17-2024 Telephone encounter Note Patient returned call and scheduled 06/24 Chelsea Copeland [facility] 06-17-2024 Miscellaneous Notes Patient returned call and scheduled 06/24 Chelsea Copeland 1st attempt. Message left for patient to contact office to schedule consult with Dr. Hodges. 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 Deysi Valdivia in [employer] documented in this encounter [facility] 06-17-2024 Telephone encounter Note 1st attempt. Message left for patient to contact office to schedule consult with Dr. Hodges. 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 Deysi Valdivia in [employer] [facility] Work Phone: 06-17-2024 Instructions Yanet Cardoso RN [...] yellow drainage appears please call us at [phone] ext [phone] or [phone]. 10. Do not take any Aspirin, Advil, [...] to manage their pain after surgery with Roti-gmr-Odegrbh (OTC) medications such as Tylenol (acetaminophen) and [...] How will I alternate my regular strength zuma-fyl-ivtsjiw pain medication? You will take a dose [...] We recommend that you follow this schedule bafyet-aam-ebyrj for at least 3 days after surgery, [...] MOHS SURGERY, you should see your referring maintenance welder for a routine skin check every 6 months or on a schedule dictated by your maintenance welder. IN CASE OF BLEEDING In case of [...] Department to speak to a Nurse at [phone] ext [phone] or [phone] After 5pm, or on weekends and holidays, and ask for the dermatology surgery fellow collision technician documented in this encounter [facility] 06-17-2024 History of Present illness Narrative MOHS MICROGRAPHIC OPERATIVE REPORT SERVICE DATE: 06/17/2024 SERVICE TIME: 8:50 AM LOCATION: [place]:[facility],[id number] REFERRING PROVIDER: Richie Dejesus (Iris) [address] [facility] [address] PROCEDURE START TIME: 858 am PROCEDURE END [...] at Bedside: Inside pathology report # [id number], Date of Biopsy: 05/04/2024, and Biopsy Performed [...] for non-ocular SCC of head and neck. [facility] Risk Factors: tumor diameter greater than or equal to 2 cm (depth of tumor noted to be at subcutaneous fat) Final stage T2a - 1 high-risk factor. Based on the [facility] guidelines. 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 Mohs blocks sent for permanent pathology to assess for LVI/PNI. Patient will be seen in [place] by Dr. Hodgse for radiation consultation. The documentation for this [...] clinical/operative note independently gathered by the clinical customer support executive and Fellow and the remaining scribed note accurately describes my personal service to the patient. Madelaine Bronson MD documented in this encounter [facility] 06-17-2024 Note [facility] 06-16-2024 Note [facility] 06-16-2024 History of Present illness Narrative Patient here for injection of Aranesp given SQ in left arm and Xgeva given SQ in right arm. Patient tolerated well. Lorin Zhang LPN documented in this encounter [facility] 05-18-2024 Telephone encounter Note Refill req received for Prednisone. Next OV here 08/11/24 Lorin Zhang LPN [facility] 05-18-2024 Miscellaneous Notes Refill req received for Prednisone. Next OV here 08/11/24 Lorin Zhang LPN documented in this encounter [facility] 05-13-2024 Telephone encounter Note Prescription Refill Information [...] Ferrer LPN May 13, 2024 7:54 AM [facility] 05-13-2024 Miscellaneous Notes Prescription Refill Information The [...] 2024 7:54 AM documented in this encounter [facility] 05-12-2024 Note [facility] 05-12-2024 History of Present illness Narrative Patient here for injection of Xgeva and Aranesp. Given SQ in left and right arm, respectively. Patient tolerated well. Lorin Zhang LPN documented in this encounter [facility] 05-12-2024 Note HNO ID: [id number] Author: ENDY CURRAN PT Service: ? Author Type: Physical Therapist Type: Progress Notes Filed: 05/12/2024 09:44 Note Text: 05/12/2024 [facility] PHYSICAL THERAPY DISCONTINUANCE [...] for exercise recently along the [place] in [employer] Patient Goals: To decrease lower back and [...] Care is completed. Endy Curran PT, DERRICK [facility] 05-04-2024 Instructions Richie Dejesus MD - 05/04/2024 [...] to this product.. documented in this encounter [facility] 05-04-2024 History of Present illness Narrative Shave [...] MD RTC ppath documented in this encounter [facility] 05-04-2024 Note [facility] 04-14-2024 Telephone encounter Note Per appt desk, Patient is rescheduled for 05/10/2024 Graciela Khan [facility] 04-14-2024 Miscellaneous Notes Per appt desk, Patient is rescheduled for 05/10/2024 Graciela Khan Due to a change in Dr. Mcmahon's schedule, Patient's appt on 04/28/2024 has been cancelled. Called Patient-no answer. Left voicemail requesting Patient call the [facility] [place] to reschedule. Patient also notified of cancellation via [employer] message. Graciela Khan documented in this encounter [facility] 04-14-2024 Note [facility] 04-14-2024 History of Present illness Narrative [...] Abigail Ferrer LPN documented in this encounter [facility] 04-05-2024 Telephone encounter Note Due to a change in Dr. Mcmahon's schedule, Patient's appt on 04/28/2024 has been cancelled. Called Patient-no answer. Left voicemail requesting Patient call the [facility] [place] to reschedule. Patient also notified of cancellation via [employer] message. Graciela Khan [facility] 04-01-2024 Note HNO ID: [id number] Author: ENDY CURRAN PT Service: ? Author [...] billed treatment time. Endy Curran, PT, DERRICK [facility] 04-01-2024 History of Present illness Narrative Episode [...] Curran PT, MBA documented in this encounter [facility] 03-30-2024 Telephone encounter Note Prescription Refill Information [...] Ferrer LPN March 30, 2024 11:52 AM [facility] 03-30-2024 Miscellaneous Notes Prescription Refill Information The [...] 2024 11:52 AM documented in this encounter [facility] 03-24-2024 Note HNO ID: [id number] Author: ENDY CURRAN PT Service: ? Author [...] for exercise recently [place] [employer] Patient Goals: To decrease lower back and L hip pain (Improving) Time Frame for Goals and Treatment : 05/07/24 Planned Interventions, Frequency, and Duration: 2x/week, 5 weeks Total Number of Visits Planned: 10 Patient to be seen for Therapeutic exercise (52120), Manual therapy (67394), Therapeutic activities (13783), Self-mcfp management (99717), Patient/Family/Caregiver Education, Body Mechanics Training PLAN FOR [...] is the avera (more content not included)... [facility] 03-24-2024 History of Present illness Narrative Images [...] for exercise recently [place] [employer]) Patient Goals: To decrease lower back and L hip pain (Improving) Time Frame for Goals and Treatment : 05/07/24 Planned Interventions, Frequency, and Duration: 2x/week, 5 weeks Total Number of Visits Planned: 10 Patient to be seen for Therapeutic exercise (35493), Manual therapy (51658), Therapeutic activities (20591), Self-mcfp management (75291), Patient/Family/Caregiver Education, Body Mechanics Training PLAN FOR [...] Curran PT, DERRICK documented in this encounter [facility] 03-19-2024 Instructions Richie Dejesus MD - 03/19/2024 [...] to 4 weeks. documented in this encounter [facility] 03-19-2024 History of Present illness Narrative Patient presents with: Actinic Keratosis Cryosurgery of non-malignant lesion(s) HPI: Patient is here for cryosurgery Patient is alert oriented 3 not in apparent distress Luther Duganetler Medical Record: [id number] Date: 03/19/2024 Procedure: Cryosurgery The risks, benefits [...] RTC 4 months documented in this encounter [facility] 03-19-2024 Note [facility] 03-17-2024 Note [facility] 03-17-2024 History of Present illness Narrative Patient here today for injections. xgeva (denies jaw pain, tooth pain) given SQ in Rt arm, eligard given SQ in LLQ and aranesp given SQ in left arm. Pt tolerated well Lorin Zhang LPN documented in this encounter [facility] 03-16-2024 Note HNO ID: [id number] Author: JULIANO MAGAÑA PT Service: ? Author [...] Time : 1455 Juliano Magaña PT, DPT [facility] 03-16-2024 History of Present illness Narrative Episode [...] Magaña PT, DPT documented in this encounter [facility] 03-15-2024 Telephone encounter Note The patient has [...] Stanton RN March 15, 2024 11:43 AM [facility] 03-15-2024 Miscellaneous Notes The patient has been [...] 2024 11:43 AM documented in this encounter [facility] 03-10-2024 Note [facility] 03-10-2024 History of Present illness Narrative [...] (Family Medicine) Natalya Dorsey RN as Specialty Creative Guru (Hematology/Oncology) Dereje Herring MD (Hematology/Oncology) Outside specialists [...] ICD10: Z13.31 - DEPRESSION SCREENING Catherine Peraza APRN.PROGRAMMER BUSINESS Prescription instructions reviewed with patient as applicable. Patient advised if symptoms do not improve or if symptoms worsen sooner, to contact their primary care physician. Potential red flag symptoms discussed with the patient. Reviewed appropriate action plan to take if red flag symptoms occur. Patient agreeable to treatment plan. documented in this encounter [facility] 03-09-2024 Note HNO ID: [id number] Author: JOSE DAVID CEDENO PTA Service: ? Author Type: Drafter Marine Type: Progress Notes Filed: 03/09/2024 16:02 Note [...] in billed treatment time. Jose David Cedeno [facility] 03-09-2024 History of Present illness [...] David Cedeno PTA documented in this encounter [facility] 03-02-2024 Note HNO ID: [id number] Author: JULIANO MAGAÑA PT Service: ? Author [...] Time : 1550 Juliano Magaña, PT, DPT [facility] 03-02-2024 History of Present illness Narrative Episode [...] Magaña PT, DPT documented in this encounter [facility] 02-27-2024 Note HNO ID: [id number] Author: ROSEANNA HUGHES PTA Service: ? Author Type: Drafter Marine Type: Progress Notes Filed: 02/27/2024 13:39 Note [...] Stop Time : 1240 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 PTA [facility] 02-27-2024 History of Present illness Narrative Episode [...] 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 PTA documented in this encounter [facility] 02-25-2024 Telephone encounter Note Patient calling in to see if Dr. Roach wanted him to see Dr. Mcmahon in [place]. Patient mentioned that it was brought up at his appt with Doc and he has not heard anything yet. Please review and advise. Sariah Amaro February 25, 2024 1:25 PM [facility] 02-25-2024 Miscellaneous Notes Patient calling in to see if Dr. Roach wanted him to see Dr. Mcmahon in [place]. Patient mentioned that it was brought up at his appt with Doc and he has not heard anything yet. Please review and advise. Sariah Amaro February 25, 2024 1:25 PM documented in this encounter [facility] 02-25-2024 Note HNO ID: [id number] Author: ENDY CURRAN PT Service: ? Author [...] Patient to be seen for Therapeutic exercise (64208), Manual therapy (10532), Therapeutic activities (77671), Self-mcfp management (24167), Patient/Family/Caregiver Education, Body Mechanics Training PLAN FOR [...] noted that he (more content not included)... [facility] 02-25-2024 History of Present illness Narrative Images [...] Patient to be seen for Therapeutic exercise (86290), Manual therapy (24178), Therapeutic activities (62887), Self-mcfp management (96523), Patient/Family/Caregiver Education, Body Mechanics Training PLAN FOR [...] Curran PT, MBA documented in this encounter [facility] 02-23-2024 Note [facility] 02-23-2024 History of Present illness Narrative Vicente Roach MD Department of Orthopaedics Orthopaedics [address] [facility] [address] Dept: [phone] Dept February 23, 2024 CHIEF COMPLAINT: New [...] Known sclerotic osseous lesions 2. Degenerative changes Drycleaner: [facility] Transcribe Date/Time: Dec 27 2023 8:22A Dictated by : PRANAV FIGUEROA MD This examination was interpreted and [...] requesting physician via US mail. Dereje Herring [address] [facility] [address] Arsalan Ocampo MD [address] [facility] [address] Vicente Roach MD documented in this encounter [facility] 02-20-2024 Note HNO ID: [id number] Author: JOSE DAVID CEDENO PTA Service: ? Author Type: Drafter Marine Type: Progress Notes Filed: 02/20/2024 13:36 Note [...] Time : 1232 Jose David Cedeno PTA [facility] 02-20-2024 History of Present illness Narrative Episode [...] David Cedeno PTA documented in this encounter [facility] 02-18-2024 Note HNO ID: [id number] Author: ROSEANNA HUGHES PTA Service: ? Author Type: Drafter Marine Type: Progress Notes Filed: 02/18/2024 14:13 Note [...] Session Stop Time : 1400 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 [facility] 02-18-2024 History of Present illness [...] 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 PTA documented in this encounter [facility] 02-18-2024 Nurse Note Pt here for injection of Xgeva given SQ in the right arm and Aranesp given sq in left arm. Pt tolerated well. [facility] 02-18-2024 Nurse Note Pt here for injection of Xgeva given SQ in the right arm and Aranesp given sq in left arm. Pt tolerated well. documented in this encounter [facility] 02-13-2024 Note HNO ID: [id number] Author: ROSEANNA HUGHES PTA Service: ? Author Type: Drafter Marine Type: Progress Notes Filed: 02/13/2024 13:24 Note [...] Stop Time : 1235 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 PTA [facility] 02-13-2024 History of Present illness Narrative Episode [...] 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 PTA documented in this encounter [facility] 02-11-2024 History of Present illness Narrative Program_ID:[id number] Access Code: [email or web address] URL: [email or web address] m/ Date: 02-11-2024 Prepared By: ENDY CURRAN [...] Home Exercise Program Assigned: 1: Access Code: [email or web address] URL: [email or web address] m/ Date: 02/11/2024 Prepared by: ROSEANNA HUGHES [...] 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 PTA documented in this encounter [facility] 02-11-2024 Note HNO ID: [id number] Author: ROSEANNA HUGHES PTA Service: ? Author Type: Drafter Marine Type: Progress Notes Filed: 02/11/2024 12:14 Note [...] Home Exercise Program Assigned: 1: Access Code: [email or web address] URL: [email or web address] m/ Date: 02/11/2024 Prepared by: ROSEANNA HUGHES [...] Session Stop Time : 1144 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 [facility] 02-10-2024 Telephone encounter Note Prescription [...] Ferrer LPN February 10, 2024 7:35 AM [facility] 02-10-2024 Miscellaneous Notes Prescription Refill Information The [...] 2024 7:35 AM documented in this encounter [facility] 02-06-2024 Note [facility] Medical Records Department [address] [place] [address] Discharge Summary 02/06/24 0943 MR#: [id number] Acct: [id number] Name: LUTHER CASTILLO II Rep #: [id number] : 1955 68 From: Rohit Crawford MD PCP: Dr. López Ocampo MD Status:DIS CARLENE Location: [place] [id number] Providers Date of Admission: 02/05/24 Primary Care [...] outpatient. I den (more content not included)... [facility] 02-05-2024 Telephone encounter Note Images from the original note were not included. TATE approved and patient was notified via voicemail Grace Julio MA [facility] 02-05-2024 Miscellaneous Notes Images from the original note were not included. TATE approved and patient was notified via voicemail Grace Julio MA [facility] Chen: [id number] Grace Julio MA documented in this encounter [facility] 02-05-2024 Note [facility] Medical Records Department [address] [place] [address] History Physical Exam 02/05/24 1352 MR#: [id number] Acct: [id number] Name: LUTHER CASTILLO II Rep #: [id number] : 1955 68 From: Derrek YBARRA PA-C PCP: Dr. López Ocampo MD Status:[facility] Location: [facility] AC-TBA-1 HPI - General General Date [...] He notes he follows with oncology from [facility]. He denies being on any active [...] Source Oral Puls (more content not included)... [facility] 02-05-2024 Telephone encounter Note Submitted PA to [facility] for cyclobenzaprine Chen: [id number] Grace Julio MA [facility] 02-03-2024 Telephone encounter Note Phoned patient and reviewed results with him. Patient voiced understanding. Sienna Avila LPN [facility] 02-03-2024 Miscellaneous Notes Phoned patient and reviewed results with him. Patient voiced understanding. Sienna Avila LPN ----- Message from Arsalan Ocampo MD sent at 02/03/2024 3:09 PM EDT ----- Normal scrotal US aside from 1 mm right testicular calcification which is benign. No abnormalities in left groin. documented in this encounter [facility] 02-03-2024 Telephone encounter Note ----- Message from Arsalan Ocampo MD sent at 02/03/2024 3:09 PM EDT ----- Normal scrotal US aside from 1 mm right testicular calcification which is benign. No abnormalities in left groin. [facility] 02-03-2024 History of Present illness Narrative Radiology [...] PATIENT PRESENTS WITH AN IMPLANTABLE OR ATTACHED PHARMACIST PER DIEM: No RADIOLOGY DEPARTMENT: Ultrasound PERIPHERAL IV DATA: Not applicable SIGNED BY: Jazzmine Gillette Rdms February 03, 2024 2:56 PM documented in this encounter [facility] 02-03-2024 Note [facility] 02-03-2024 Instructions Sienna Avila LPN - [...] review all the medicines you take, even rjee-dol-djxgjsd medicines. As you get older, the way [...] certain medical conditions. documented in this encounter [facility] 02-03-2024 Note [facility] 02-03-2024 History of Present illness Narrative [...] also notes that he was evaluated at [facility] ED on 12/18 for possible appendicitis noted [...] discussed with the Patient or Patient's Authorized Unloader Operator. As applicable, any other physician, advance practice provider, medical student, or other health professional student that will be observing or involved in the sensitive examination for educational or training purposes was discussed with the Patient or Authorized Unloader Operator. The Patient or Authorized Unloader Operator has agreed to proceed with the [...] Lymph 1.00 - 4.00 k/uL 1.79 2.37 Ciales% % 6.1 6.5 Abs Ciales <0.87 k/uL 0.27 0.40 Eosin% % 5.2 [...] Arsalan Ocampo MD documented in this encounter [facility] 01-29-2024 History of Present illness Narrative Program_ID:[id number] Access Code: [email or web address] URL: [email or web address] Date: 01-29-2024 Prepared By: ENDY CURRAN [...] Planned: 12 Planned Treatment Interventions: Therapeutic exercise (56550), Manual therapy (17536), Therapeutic activities (40735), Self-mcfp management (80159), Patient/Family/Caregiver Education, Body Mechanics Training PLAN FOR [...] dull and aching. He saw Catherine Podlogluba, SENIOR PRODUCER, PROGRAMMER BUSINESS and since that time he has had [...] Program Assigned: Current Home Program: Access Code: [email or web address] URL: [email or web address] [email or web address] Date: 01/29/2024 Prepared by: ENDY CURRAN [...] Curran PT, MBA documented in this encounter [facility] 01-29-2024 Note HNO ID: [id number] Author: ENDY CURRAN PT Service: ? Author [...] Planned: 12 Planned Treatment Interventions: Therapeutic exercise (44029), Manual therapy (24285), Therapeutic activities (08789), Self-mcfp management (86178), Patient/Family/Caregiver Education, Body Mechanics Training PLAN FOR [...] Difficulty with kitc (more content not included)... [facility] 01-23-2024 Telephone encounter Note SOCIAL WORK FOLLOW UP NOTE: CANCER CENTER Pt noted on [facility] report. Pt was seen by provider on 01/20. Per chart review, no distress noted. No other needs identified. Deferred RAJ Fang-S [facility] 01-23-2024 Miscellaneous Notes SOCIAL WORK FOLLOW UP NOTE: CANCER CENTER Pt noted on [facility] report. Pt was seen by provider on 01/20. Per chart review, no distress noted. No other needs identified. Deferred RAJ Fang-S documented in this encounter [facility] 01-21-2024 Note [facility] 01-21-2024 History of Present illness Narrative Pt here for injection of xgeva given SQ in right arm and aranesp given SQ in left arm Pt tolerated well. For all other information regarding today, see today's OV note with Dr Herring. Lorin Zhang LPN documented in this encounter [facility] 01-21-2024 Note [facility] 01-21-2024 History of Present illness Narrative [...] which included preparing to see the patient, [id number] patient care, completing clinical documentation, obtaining and/or reviewing separately obtained history, counseling and educating the patient/family/caregiver, ordering medications, tests, or procedures, independently interpreting results (not separately reported), and communicating results to the patient/family/caregiver. Electronically Signed: Dereje Herring MD January 21, 2024 documented in this encounter [facility] 12-30-2023 Telephone encounter Note Phoned patient and went over results, notes from Catherine Peraza BEVERAGE STEWARD with understanding. [facility] 12-30-2023 Miscellaneous Notes Phoned patient and went over results, notes from Catherine Peraza BEVERAGE STEWARD with understanding. ----- Message from Catherine Peraza APRN.CNP sent at 12/30/2023 2:09 PM EDT ----- Xray shows mild to moderate left hip arthritis. Would go ahead and do the PT and if not improving can have him see ortho. aCtherine Peraza APRN.CNP documented in this encounter [facility] 12-30-2023 Telephone encounter Note ----- Message from Catherine Peraza APRN.CNP sent at 12/30/2023 2:09 PM EDT ----- Xray shows mild to moderate left hip arthritis. Would go ahead and do the PT and if not improving can have him see ortho. Catherine Peraza APRN.PROGRAMMER BUSINESS [facility] 12-24-2023 History of Present illness Narrative Radiology [...] PATIENT PRESENTS WITH AN IMPLANTABLE OR ATTACHED PHARMACIST PER DIEM: No RADIOLOGY DEPARTMENT: General X-ray: Exam(s) Completed: Pelvis X-Ray: Pelvis with Hip Left PERIPHERAL IV DATA: Not applicable SIGNED BY: RT Teresita(R) December 24, 2023 11:58 AM documented in this encounter [facility] 12-24-2023 Note [facility] 12-24-2023 History of Present illness Narrative [...] ER with red flag symptoms Catherine Peraza APRN.PROGRAMMER BUSINESS Prescription instructions reviewed with patient as applicable. [...] 4 - Moderate documented in this encounter [facility] 12-24-2023 Note [facility] 12-17-2023 Note [facility] 12-17-2023 History of Present illness Narrative Patient here for an injection of Xgeva SQ in left arm and Aranesp SQ in right arm. Pt tolerated well. Lorin Zhang LPN documented in this encounter [facility] 12-12-2023 Miscellaneous Notes Call to patient, aware that Dr. Herring reviewed CT and Rx for Decadron sent to pharmacy. Dosing reviewed. Patient states understanding. Denies other concerns. Krista Dorsey RN Dr. Herring reviewed scan. No concerning findings. Rx for Decadron po to be taken the am of injections. Krista Dorsey RN Patient calls in and states that he went to [facility] ED. He states that after blood work, [...] consult. Pt acknowledged. Planning to go to [facility]. He reports pain is stable from last week. Not worsening. No fevers. No N/V. CT stable from cancer perspective. Tee Ellis APRN.PROGRAMMER BUSINESS documented in this encounter [facility] 12-12-2023 Telephone encounter Note Call to patient, aware that Dr. Herring reviewed CT and Rx for Decadron sent to pharmacy. Dosing reviewed. Patient states understanding. Denies other concerns. Krista Dorsey RN [facility] Work Phone: 12-12-[address] Herring reviewed scan. No concerning findings. Rx for Decadron po to be taken the am of injections. Krista Dorsey RN [facility] 12-11-2023 Telephone encounter Note Patient calls in and states that he went to [facility] ED. He states that after blood work, urinalysis, exam from physician, it was determined that the pain is not appendicitis. He was sent home. He states the pain is a little better this week but he is apprehensive about getting any more shots next week. He would like to know what Dr. Herring thinks about scans. Krista Dorsey, RN [facility] 12-11-2023 Telephone encounter Note Called patient to review CT scans: mild acute appendicitis. Recommending ED for evaluation, abx, surgery consult. Pt acknowledged. Planning to go to [facility]. He reports pain is stable from last week. Not worsening. No fevers. No N/V. CT stable from cancer perspective. Tee Ellis APRN.PROGRAMMER BUSINESS [facility] Work Phone: 12-10-2023 History of Present illness [...] PATIENT PRESENTS WITH AN IMPLANTABLE OR ATTACHED PHARMACIST PER DIEM: No ALLERGIES: Reviewed and unchanged CONTRAST ALLERGY: [...] TIME: 4:05 PM documented in this encounter [facility] 12-10-2023 Note [facility] 12-05-2023 Telephone encounter Note Spoke with patient/. Aware of instructions from Tee to go the ED if any new or increase in symptoms. Both state understanding. Krista Dorsey RN [facility] Work Phone: 12-05-2023 Miscellaneous Notes Spoke with patient/. Aware of instructions from Tee to go the ED if any new or increase in symptoms. Both state understanding. Krista Dorsey RN Spoke with patient and scheduled CT. Transferred call to [employer] for more instructions. Yaritza Carvajal Prostate ca with known bone mets. Would not expect that reaction from either injection this far out. Ordered STAT CT a/p spine to assess. If pain is getting worse or causing numbness/tingling in legs should go to ED. Tee Ellis APRN.PROGRAMMER BUSINESS Care Coordination Triage Note [facility] Situation: Patient reports Other Pain Background: Disease, [...] 2023 1:36 PM documented in this encounter [facility] 12-05-2023 Telephone encounter Note Spoke with patient and scheduled CT. Transferred call to [employer] for more instructions. Yaritza Carvajal [facility] 12-05-2023 Telephone encounter Note Prostate ca with known bone mets. Would not expect that reaction from either injection this far out. Ordered STAT CT a/p spine to assess. If pain is getting worse or causing numbness/tingling in legs should go to ED. Tee Ellis APRN.PROGRAMMER BUSINESS [facility] 12-05-2023 Telephone encounter Note Care Coordination Triage Note [facility] Situation: Patient reports Other Pain Background: Disease, [...] Dorsey RN December 05, 2023 1:36 PM [facility] 12-02-2023 History of Present illness Narrative CHIEF [...] and legs. erythematous gritty papule(s) , Left roman catholic, right crown scalp, Upper dorsal nose, right roman catholic, Left dorsal hand, left lateral upper arm [...] in apparent distress Luther Castillo Medical Record: [id number] Date: 12/02/2023 Procedure: Cryosurgery The risks, benefits [...] to Actinic Keratosis. 8 lesion(s) treated Left roman catholic, right crown scalp, Upper dorsal nose, right roman catholic, Left dorsal hand, left lateral upper arm Patient tolerated treatment well. Wound care instructions provided, pt verbalizes understanding. Richie Dejesus MD The documentation for this note was partially completed by Narda Gay MA acting as scribe for Richie Dejesus MD. December 02, 2023 7:06 AM. I agree with the Chief Complaint, ROS, and Past Histories independently gathered by the clinical customer support executive and the remaining scribed note accurately describes my personal service to the patient. VEE Ghosh MD Return to clinic 4 mo ak recheck documented in this encounter [facility] 12-02-2023 Note [facility] 12-02-2023 Instructions Nancy John LPN - [...] to 4 weeks. documented in this encounter [facility] 11-19-2023 Note [facility] 11-19-2023 History of Present illness Narrative Pt here for injection of Xgeva given SQ in right arm and Aranesp given SQ in left arm. Pt tolerated well. Lorin Zhang LPN documented in this encounter [facility] 11-17-2023 Telephone encounter Note From: Luther Castillo To: Office of Sp Mckeon DO Sent: 11/15/2023 9:44 AM EDT Subject: Medication Renewal Request Refills have been requested for the following medications: tamsulosin (FLOMAX) 0.4 mg [Sp Mckeon DO] Preferred pharmacy: [id number] - [place] [address] - [address] [phone] [facility] [employer] [address] [address] Delivery method: P ickup [facility] 11-17-2023 Miscellaneous Notes From: Luther Castillo To: Office of Sp Mckeon DO Sent: 11/15/2023 9:44 AM EDT Subject: Medication Renewal Request Refills have been requested for the following medications: tamsulosin (FLOMAX) 0.4 mg [Sp Mckeon DO] Preferred pharmacy: [id number] - [place] [address] - [address] [phone] [facility] [employer] [address] [address] Delivery method: P ickup documented in this encounter [facility] 11-12-2023 History of Present illness Narrative RADIOLOGY [...] PATIENT PRESENTS WITH AN IMPLANTABLE OR ATTACHED PHARMACIST PER DIEM: No CREATININE: Creatinine Date Value Ref Range [...] Discontinued PROCEDURE TYPE: NM Stress: 13 mCi [id number]-[id number] was administered IV for Rest Imaging at 8:35 by . 35 mCi Uq67i-Qrwsvoj was administered IV for Stress Imaging at [...] AM PAGER/CONTACT #: documented in this encounter [facility] 11-12-2023 Note HNO ID: [id number] Author: SHERRI CAMPBELL CNMT Service: Radiology Author [...] PATIENT PRESENTS WITH AN IMPLANTABLE OR ATTACHED PHARMACIST PER DIEM: No CREATININE: Creatinine Date Value Ref Range [...] Discontinued PROCEDURE TYPE: NM Stress: 13 mCi Vn42n-Ruushdo was administered IV for Rest Imaging at 8:35 by davi. 35 mCi Bo48b-Wqsezjx was administered IV for Stress Imaging at 9:42 by mm. PATIENT DISCHARGED TO: Ambulatory patient, left [place] department area. A Diagnostic radioactive procedure has taken place, with no further precautions necessary other than routine body substance precautions. More information regarding radiation safety can be found using this link: [email or web address] [email or web address]%20Medicine%20Pr [email or web address] SIGNATURE: JONY Farias PATIENT NAME: Luther Castillo DATE: November 12, 2023 TIME: 8:59 AM PAGER/CONTACT #: [facility] 11-11-2023 Telephone encounter Note Left message regarding reminder and instructions for stress test tomorrow. This included where to check in, length of test and no caffeine for 12 hours prior to test, [facility] 11-11-2023 Miscellaneous Notes Left message regarding reminder and instructions for stress test tomorrow. This included where to check in, length of test and no caffeine for 12 hours prior to test, documented in this encounter [facility] 11-11-2023 Telephone encounter Note Prescription Refill Information [...] Ferrer LPN November 11, 2023 7:59 AM [facility] 11-11-2023 Miscellaneous Notes Prescription Refill Information The [...] 2023 7:59 AM documented in this encounter [facility] 10-22-2023 Nurse Note Pt here for injection of Xgeva and Aranesp. Given SQ in Left and Right arm respectivly. Pt tolerated well. For all other information regarding today, see today's OV note with Dr Herring. Lorin Zhang LPN [facility] 10-22-2023 Nurse Note Pt here for injection of Xgeva and Aranesp. Given SQ in Left and Right arm respectivly. Pt tolerated well. For all other information regarding today, see today's OV note with Dr Herring. Lorin Zhang LPN documented in this encounter [facility] 10-22-2023 Note [facility] 10-22-2023 History of Present illness Narrative [...] confirmed metastatic disease. Biopsy of prostate confirmed [place] 7, prostate cancer. He started androgen deprivation [...] which included preparing to see the patient, hndp-[id number] patient care, completing clinical documentation, obtaining and/or reviewing separately obtained history, counseling and educating the patient/family/caregiver, ordering medications, tests, or procedures, independently interpreting results (not separately reported), and communicating results to the patient/family/caregiver. Electronically Signed: Dereje Herring MD October 22, 2023 documented in this encounter [facility] 10-16-2023 Telephone encounter Note Please call pt to schedule Stress echo ordered today by Dr Champagne. Follow up appointment already scheduled. [facility] 10-16-2023 Miscellaneous Notes Please call pt to schedule Stress echo ordered today by Dr Champagne. Follow up appointment already scheduled. documented in this encounter [facility] 10-16-2023 Note HNO ID: [id number] Author: DORCAS CHAMPAGNE, DO Service: ? Author Type: Physician Type: Progress Notes Filed: 10/16/2023 17:25 Note Text: [facility]Y [facility] OUTPATIENT VISIT DATE October 16, 2023 PRIMARY CARE PHYSICIAN: Arsalan Ocampo [address] [place] [address] HISTORY OF PRESENT ILLNESS: Mr. Castillo is [...] Actinic keratosis Al (more content not included)... [facility] 10-16-2023 History of Present illness Narrative Images from the original note were not included. [facility]IOLOGY [facility] OUTPATIENT VISIT DATE October 16, 2023 PRIMARY CARE PHYSICIAN: Arsalan Ocampo [address] [place] [address] HISTORY OF PRESENT ILLNESS: Mr. Castillo is [...] on 10/16/2023) Dorcas Champagne DO, FACC, FAC Ballroom Dance Instructor, [facility] Ballroom Dance Instructor, [facility] Cardiac Rehabilitation Ballroom Dance Instructor, [facility] Ballroom Dance Instructor, [facility] Ballroom Dance Instructor, [facility] Ambulatory Cardiology Clinical Magistrate Profressor of Medicine, [facility] - [facility] Staff Sponsorship Manager, [employer] Juli Yeung Department of Cardiovascular Medicine/Heart and V[facility] [place], [facility] Please note: This note has been produced using speech recognition software and may contain errors related to that system including mario, punctuation, spelling, words, gender and phrases that may be inappropriate. documented in this encounter [facility] 10-03-2023 Telephone encounter Note Rx request from pharmacy. Next scheduled apt with dept 10/21 last apt 03/13/23 Lorin Zahng LPN [facility] 10-03-2023 Miscellaneous Notes Rx request from pharmacy. Next scheduled apt with dept 10/21 last apt 03/13/23 Lorin Zhang LPN documented in this encounter [facility] 10-02-2023 Nurse Note Lupron injection administered, left buttock, tolerated well, no immediate adverse reactions noted. Abigail Ferrer LPN [facility] 10-02-2023 Nurse Note Lupron injection administered, left buttock, tolerated well, no immediate adverse reactions noted. Abigail Ferrer LPN documented in this encounter [facility] 09-24-2023 Note [facility] 09-24-2023 History of Present illness Narrative Pt here for injection of Aranesp in the right arm and xgeva given SQ in the left arm. Pt tolerated well. Lorin Zhang LPN documented in this encounter [facility] 09-10-2023 Telephone encounter Note Please see patient [...] CHRIS Goldsmith September 10, 2023 1:02 PM [facility] 09-10-2023 Miscellaneous Notes Please see patient message [...] 2023 1:02 PM documented in this encounter [facility] 08-28-[address] Herring reviewed labs and ok with follow up in October. Krista Dorsey RN [facility] Work Phone: 08-28-[address] Herring [...] at this time. documented in this encounter [facility] 08-27-2023 Telephone encounter Note Spoke with patient when he was here and scheduled OV in October as Dr. Herring didn't have any availability on the same day as his September injection appointment. Is this acceptable? Yaritza Carvajal [facility] 08-27-2023 Telephone encounter Note Per Epic appointment notes, patient due OV in September. Krista Dorsey RN [facility] 08-27-2023 Telephone encounter Note Pt states every time he has needed the aranesp injection he feels terrible for at least 3 days after. Headaches and fatigue, no initiative to do much. He does not have a f/u scheduled with you at this time. [facility] 08-05-2023 Telephone encounter Note Pt read MC message. [facility] 08-05-2023 Miscellaneous Notes Pt read MC message. Dr. Denys hooks cancelled and rescheduled to soonest in [place]. 1st attempt to notify pt, LVM and sent MC message. documented in this encounter [facility] 08-04-[address] Denys hooks cancelled and rescheduled to soonest in [place]. 1st attempt to notify pt, LVM and sent MC message. [facility] 07-31-2023 Nurse Note Patient here for injection of Xgeva, given SQ in left arm. Pt denies any jaw or tooth pain. Aranesp inj given in right arm Pt tolerated well. Lorin Zhang LPN [facility] 07-31-2023 Nurse Note Patient here for injection of Xgeva, given SQ in left arm. Pt denies any jaw or tooth pain. Aranesp inj given in right arm Pt tolerated well. Lorin Zhang LPN documented in this encounter [facility] 06-19-2023 Miscellaneous Notes Call to patient, aware ok to receive more Xgeva from dentist. We will keep next Xgeva as scheduled on 07/03/23. Patient denies any further jaw pain since. Denies other issues. States he was evaluated by his PCP, has a stress test and was told that was normal. Patient denies further questions or concerns. Krista Dorsey RN Received call back from [facility]. Patient was in his office and had an exam on 06/04/23, the day before in our office stating jaw pain for the past week. Dr. Christian does not think patient has any contraindication to receive more Xgeva. Krista Dorsey RN Call to [facility], explained to founder president and ceo that patient needs dental evaluation for jaw pain that he was having. Asked that the dentist review x-rays. We need to know if no issues and ok to continue on Xgeva. She will discuss with Dr. Christian and call us back. Krista Dorsey RN Spoke with patient. He sees Dr. Roberts at [facility] in [place]. [phone]. He is aware that we will contact [...] I do not see any orders in [employer]. Patient is asking to speak to clinical. documented in this encounter [facility] 06-17-2023 Miscellaneous Notes Patient notified of results. Patient verbalizes understanding. Yaritza Guerrier RN Left a message for pt to call the office and ask to speak to a nurse. Sarah Lemus LPN ----- Message from Catherine Peraza APRN.PROGRAMMER BUSINESS sent at 06/17/2023 1:46 PM EDT ----- Stress testing was normal. Catherine Peraza APRN.PROGRAMMER BUSINESS documented in this encounter [facility] 06-17-2023 Miscellaneous Notes Patient has been identified [...] Antoinette Martini LPN. documented in this encounter [facility] 06-16-2023 Miscellaneous Notes Spoke with patient regarding reminder for stress test tomorrow and given instructions. documented in this encounter [facility] 06-11-2023 Miscellaneous Notes TC to patient who [...] Cholesterol: 161 mg/dL documented in this encounter [facility] 06-11-2023 History of Present illness Narrative Radiology [...] PATIENT PRESENTS WITH AN IMPLANTABLE OR ATTACHED PHARMACIST PER DIEM: No RADIOLOGY DEPARTMENT: General X-ray: Exam(s) Completed: Chest X-Ray PERIPHERAL IV DATA: Not applicable SIGNED BY: RT Teresita(R) June 11, 2023 11:25 AM documented in this encounter [facility] 06-11-2023 History of Present illness Narrative 06/11/2023 [...] minute AXIS: Left axis deviation INTERVALS: Normal NV interval, possible left atrial enlargement QRS COMPLEX: [...] 4 - Moderate documented in this encounter [facility] 06-05-2023 History of Present illness Narrative Xgeva held due to some jaw pain earlier this week. Dr Phil paz. Instructed Dental x-rays and follow up with PCP for SOB during his daily walks. See phone note to PCP. Tuckerp given SQ in right arm for Hgb of 9.9 Lorin Zhang LPN documented in this encounter [facility] 05-08-2023 History of Present illness Narrative Pt here for injection of Xgeva. Given SQ in left arm. Pt tolerated well. Aranesp injection deferred. Pt did not meet treatment parameters. Hgb 10.2 Lorin Zhang LPN documented in this encounter [facility] 03-19-2023 Miscellaneous Notes I my chart messaged patient to let him know the fast was long enough. He should start the medicine and recheck labs in 3 months. Catherine Peraza APRN.PROGRAMMER BUSINESS Pt called and is notified of providers results and instructions. Pt voices understanding. Pt had sent a [employer] message on 03/17/23 stating, Dr. Ocampo's office [...] on. Patient requesting medication be sent to [facility] in [place] ([address] ----- Message from [...] Cholesterol: 214 mg/dL documented in this encounter [facility] 03-18-2023 Miscellaneous Notes Added to TE from 03/17/23. See pt mychart message. documented in this encounter [facility] 03-17-2023 Miscellaneous Notes Patient informed Schedule is [...] ask that we adjust the dates within [place]. Krista Dorsey, ERIN Patient scheduled for Q2WK [...] Krista Dorsey, ERIN documented in this encounter [facility] 03-13-2023 Nurse Note Pt here for injection of Faslodex. Given IM in B/L buttocks. Pt tolerated well. For all other information regarding today, see today's OV note with Dr Herring. Lorin Zhang LPN documented in this encounter [facility] 02-18-2023 Miscellaneous Notes Patient has been identified by name and date of : Yes Requested Prescriptions Pending Prescriptions Disp Refills predniSONE (DELTASONE) 5 mg tablet 60 tablet 2 Sig: Take 1 tablet by mouth two times a day. RX INSTRUCTIONS: Patient aware RX will be sent to pharmacy. No need to notify patient. Abigail Ferrer LPN documented in this encounter [facility] 02-13-2023 History of Present illness Narrative Pt here for injection of Xgeva. Given sq in left arm. Pt tolerated well. Lorin Zhang LPN documented in this encounter [facility] 01-16-2023 Nurse Note Pt here for injection of Xgeva. Given sq in left arm. Pt tolerated well. Lorin Zhang LPN documented in this encounter [facility] 01-14-2023 Miscellaneous Notes Rx pended. Lorin Zhang LPN documented in this encounter [facility] 12-19-2022 History of Present illness Narrative Pt here for injection of Xgeva. Given SQ in right arm. Pt tolerated well. Lorin Zhang LPN documented in this encounter [facility] 12-02-2022 History of Present illness Narrative HISTORY [...] entered by the nurse and reviewed by nd Nursing Notes: Marilin Melvin LPN 11/19/2022 1:27 [...] exam deferred Other: Perianal examination performed with fruit or nut farmer present. +external hemorrhoids and small perianal cyst [...] Derrek Baker PA-C documented in this encounter [facility] 11-27-2022 Instructions Richie Dejesus MD - 11/27/2022 [...] to 4 weeks. documented in this encounter [facility] 11-27-2022 History of Present illness Narrative CHIEF [...] in apparent distress Luther Castillo Medical Record: [id number] Date: 11/27/2022 Procedure: Cryosurgery The risks, benefits [...] Past Histories independently gathered by the clinical customer support executive and the remaining scribed note accurately describes my personal service to the patient. Priya Dejesus MD Return to clinic yearly for skin check documented in this encounter [facility] 11-21-2022 Nurse Note Pt here for injection of Xgeva. Given sq in right arm. Pt tolerated well. documented in this encounter [facility] 11-20-2022 Miscellaneous Notes The following approved medication [...] Sarah Lemus LPN documented in this encounter [facility] 11-19-2022 Instructions Derrek Baker PA-C - 11/19/2022 2:01 PM EDT -Continue Anusol cream for an additional week -Recommend fiber supplement, plenty of fluids, keep bowel movements soft and regular -Follow up if lump enlarges or becomes tender documented in this encounter [facility] 11-19-2022 Nurse Note REVIEW OF SYSTEMS: General: [...] Marilin Melvin LPN documented in this encounter [facility] 10-24-2022 Nurse Note Pt here for injection of xgeva. Given sq in left arm. Pt tolerated well. Lorin Zhang LPN documented in this encounter [facility] 10-14-2022 Nurse Note Pt here for injection of Lupron. Given IM in right buttocks. Pt tolerated well. Lorin Zhang LPN documented in this encounter [facility] 09-30-2022 Miscellaneous Notes Imm updated, pt made aware. Lexie Gambino Ma documented in this encounter [facility] 09-26-2022 History of Present illness Narrative Pt here for injection of xgeva. Given sq in right arm. Pt tolerated well. Lorin Zhang LPN documented in this encounter [facility] 09-23-2022 Hospital Discharge instructions Patient Education 09/23/2022 [...] affected hand Decreased movement of the hand [id number] [employer]. [address] [place] [address]. All rights reserved. This information is not intended as a substitute for professional medical care. Always follow your healthcare professional's instructions. Follow Up Care 09/23/2022 13:48:52 With:ARSALAN OCAMPO MD Address: [address] [place] [address]- When:2-[address] [facility] 09-23-2022 Note Discharge Instructions Thank you for allowing [facility] to assist you with your healthcare needs. [...] OCAMPO MD When Within 2-4 days Where: [address] [place] [address]- Allergies NKA Immunizations This Visit Given [...] affected hand Decreased movement of the hand 6920-8664 [employer]. [address] [place] [address]. All rights reserved. This information is not intended as a substitute for professional medical care. Always follow your healthcare professional's instructions. Additional Information VACCINATE! IT SAVES LIVES! Members of the community who have not yet received the COVID-19 vaccine and would like to receive it can visit one of [facility] vaccine clinics. There are many vaccine clinic locations within the [facility]. For locations and available times, please visit [email or web address] It is important to note that some COVID mobile vaccine clinics are held outdoors and may be canceled in rainy or stormy conditions. To learn more about pediatric vaccinations (ages 5-11), we invite you to visit the [facility] webpage. [email or web address]-[email or web address] -[email or web address].html To learn more about the COVID-19 vaccine, we invite you to visit the CDC website for a list of frequently asked questions. https://www.cdc.gov/coronavirus/2019-n cov/vaccines/faq.html [employer] Patient Portal Access Instructions: Stay connected with your healthcare team and access your personal medical information anytime with the [employer] Patient Portal. If you would like a full copy of your medical records please contact the [facility] Medical Records Department Friday through Friday between 8a.m. and 4:30p.m. Please follow the directions below to access the portal: 1.Access the email account you provided upon registration to the [facility].2.Look for an invitation email from [facility].3.Open the email and access the invitation link: Accept Invitation to [employer] [facility]4.Fill in the required savage to create your account. Sign into www.[email or web address] with your username and password that you [...] you will allow to register on the [employer] [facility] Patient Portal for access to your information. You can also access the [employer] [facility] Patient Portal on the [employer]. Simply click on Health Records under Health [...] Call your local pharmacy or go to [email or web address] to find one close to you.3.Make use of household items: Use cat litter or old coffee grounds to dispose medications if other options are not available. Mix your drugs with these household products, seal them in an airtight container and throw it into the garbage. Call [facility]: [phone] to be sure your drugs can be [...] aware that I should contact my doctor. 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 09-23-2022 Note ORIGINAL EXAMINATION: THREE XRAY [...] Sign Date: 09/23/2022 3:18:15 PM Ordering Provider: [facility] 09-23-2022 Note ORIGINAL EXAMINATION: THREE XRAY VIEWS [...] 09/23/2022 3:18:15 PM Ordering Provider: ALEXIS HEATH [facility] 08-19-2022 Miscellaneous Notes The below PSA has been added in 3 months. All others scheduling was done on Friday at check-out Nicole Saenz Pss Please add PSA every three months. See AVS from FridayAugust 16. Thank you. Sanjeev Aranda APRN.JOI documented in this encounter [facility] 08-16-2022 History of Present illness Narrative Chief [...] confirmed metastatic disease. Biopsy of prostate confirmed [place] 7, prostate cancer. He started androgen deprivation [...] 1.00 - 4.00 k/uL 1.46 2.22 2.26 Ciales% % 3.8 8.2 8.7 Abs Ciales <0.87 k/uL 0.23 0.47 0.46 Eosin% % [...] 6 months to be done here in [place] (Has been getting them in [place]). - Follow up with Urology as scheduled. [...] Sanjeev Aranda APRN.JOI documented in this encounter [facility] 08-12-2022 Miscellaneous Notes Labs done 08/07/2022, appt. With Sanjeev 08/16 Patient has been identified by name and date of : Yes Requested Prescriptions Pending Prescriptions Disp Refills abiraterone 250 mg tablet 120 tablet 5 RX INSTRUCTIONS: Patient aware RX will be sent to pharmacy. No need to notify patient. Abigail Tyson LPN documented in this encounter [facility] 08-01-2022 Nurse Note The patient is here for an injection of Xgeva Dose: 120 mg Route: Subcutaneous Lot# [id number] Expiration date 06-04-2024 Given without incident. Site: right upper quadrant abdomen Dr. Mckeon present in clinic at time of injection. The date due for the next injection is 1 month Patient education was given by nurse. Stephanie Duron RN documented in this encounter [facility] 05-30-2022 Nurse Note The patient is here for an injection of Prolia Dose: 60mg/1ml Calcium, Total Date Value Ref Range Status 02/12/2022 9.1 8.5 - 10.2 mg/dL Final Last Office Visit was 04/26/2022 Route: Subcutaneous Given without incident Site: left arm Lot number [id number] Expiration Date 06/04/2024 Dr. mckeon present in clinic at time of injection The date due for the next injection is 1 month Luther Arthur RN 8:30 AM June 14, 2022 documented in this encounter [facility] 05-17-2022 Instructions Richie Dejesus MD - 05/17/2022 [...] to 4 weeks. documented in this encounter [facility] 05-17-2022 History of Present illness Narrative Cryosurgery of non-malignant lesion(s) HPI: Patient is here for cryosurgery Patient is alert oriented 3 not in apparent distress Luther Castillo Medical Record: [id number] Date: 05/17/2022 Procedure: Cryosurgery The risks, benefits [...] RTC 6 months documented in this encounter [facility] 05-08-2022 Miscellaneous Notes Results left on patient voicemail. Luther Castillo's Multi-Cancer panel and Hereditary Myelodysplastic Syndrome/Leukemia Panel plus preliminary evidence genes through [employer] was negative for a pathogenic variant. 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 No changes are recommended to his management, based on this result. Please see [employer] message for further discussion. LIZANDRO La Licensed, Certified Genetic Counselor documented in this encounter [facility] 04-26-2022 Note HNO ID: [id number] Author: Sp Mckeon, DO Service: ? Author Type: Physician Type: Progress Notes Filed: 05/07/2022 2:46 PM Note Text: Formerly [facility] [place] [facility] LOCATION: [address] [place] [address] ESTABLISHED PATIENT PATIENT INFO: Luther Castillo 67 [...] confirmed metastatic disease. Biopsy of prostate confirmed [place] 7, prostate cancer. He started androgen deprivation [...] A. PROSTATE, BIOPSY, RIGHT BASE: Prostatic adenocarcinoma, [place] score 3+4=7 (Grade group 2), involving 60% of one core (8 mm tumor length). - Percentage of Rasheed pattern 4 = 20%. - Expansile cribriform morphology is present. B. PROSTATE, BIOPSY, RIGHT MID: Prostatic adenocarcinoma, [place] score 4+3=7 (Grade group 3), involving 90% [...] PROSTATE, BIOPSY, RIGHT LATERAL MID: Prostatic adenocarcinoma, [place] score 3+4=7 (Grade group 2), involving 85% of one core (10 mm tumor length). - Percentage of Rasheed pattern 4 = 10%. - Definitive cribriform morphology is absent. F. PROSTATE, BIOPSY, RIGHT LATERAL APEX: Prostatic adenocarcinoma, Rasheed score 3+4=7 (Grade group 2), involving 50% of one core (6.5 mm tumor length). - Percentage of [place] pattern 4 = 5%. - Cribriform morphology is absent. G. PROSTATE, BIOPSY, LEFT BASE: Prostatic adenocarcinoma, [place] score 3+3=6 (Grade group 1), involving 4% [...] 50.5 Lymph% (%) Date Value 02/12/2022 38.7 Ciales% (%) Date Value 02/12/2022 8.2 Eosin% (%) Date Value 05/28/2021 1.5 Baso% (%) Date Value 02/12/2022 0.5 Abs Neut (k/uL) Date Value 02/12/2022 2.89 Abs Ciales (k/uL) Date Value 02/12/2022 0.47 Abs Eosin (k/uL) Date Value 02/12/2022 0.11 Abs Baso (k/uL) Date Value 02/12/2022 0.03 Creatinine Date Value Ref Range Status 02/12/2022 0.98 0.73 - 1.22 mg/dL Final 11/20/2021 1.05 0.73 - 1.22 mg/dL Final 08/24/2021 0.98 (more content not included)... [facility] 04-26-2022 History of Present illness Narrative Images from the original note were not included. [facility] LOCATION: [address] [place] [address] ESTABLISHED PATIENT PATIENT INFO: Luther Castillo 67 [...] (8 mm tumor length). - Percentage of [place] pattern 4 = 20%. - Expansile cribriform morphology is present. B. PROSTATE, BIOPSY, RIGHT MID: Prostatic adenocarcinoma, Rasheed score 4+3=7 (Grade group 3), involving 90% of one core (10 mm tumor length). - Percentage of [place] pattern 4 = 90%. - Expansile cribriform morphology is present. C. PROSTATE, BIOPSY, RIGHT APEX: Prostatic adenocarcinoma, [place] score 3+4=7 (Grade group 2), involving 35% of one core (3 mm tumor length). - Percentage of [place] pattern 4 = 5%. - Cribriform morphology is absent. D. PROSTATE, BIOPSY, RIGHT LATERAL BASE: High-grade prostatic intraepithelial neoplasia. E. PROSTATE, BIOPSY, RIGHT LATERAL MID: Prostatic adenocarcinoma, [place] score 3+4=7 (Grade group 2), involving 85% [...] 50.5 Lymph% (%) Date Value 02/12/2022 38.7 Ciales% (%) Date Value 02/12/2022 8.2 Eosin% (%) Date Value 05/28/2021 1.5 Baso% (%) Date Value 02/12/2022 0.5 Abs Neut (k/uL) Date Value 02/12/2022 2.89 Abs Ciales (k/uL) Date Value 02/12/2022 0.47 Abs Eosin [...] with more than 50% of the total ptaf-la-iqjg time of the visit in counseling / coordination of care. Sp Mckeon DO MBA documented in this encounter [facility] 04-24-2022 Miscellaneous Notes Patient's request for medication is as follows Requested Prescriptions Signed Prescriptions Disp Refills predniSONE (DELTASONE) 5 mg tablet 60 tablet 2 Sig: Take 1 tablet by mouth twice daily. Order entered - please phone pharmacy and notify patient. Lillian Clemente MD documented in this encounter [facility] 04-17-2022 Miscellaneous Notes Patient's request for medication is as follows Requested Prescriptions Signed Prescriptions Disp Refills predniSONE (DELTASONE) 5 mg tablet 60 tablet 2 Sig: Take 1 tablet by mouth twice daily. Authorizing Provider: LILLIAN CLEMENTE Order entered - please phone pharmacy and notify patient. Lillian Clemente MD documented in this encounter [facility] 03-21-2022 Nurse Note Prior auth verified Patient labs reviewed No contraindications identified 03/21/2022 Lot: [id number] Expiration date: 01/2024 Administration location: abdomen left upper Patient education and follow up on AVS Next due date 1 month documented in this encounter [facility] 03-08-2022 History of Present illness Narrative In lieu of an in-person visit due to COVID-19 concerns, a distance health was performed on the patient. Patient is aware that I am not fully able to assess symptoms and do a full physical examination including vital signs assessment at this time. Patient consents to this encounter. FOLLOW UP VISIT - ENDOSCOPY NAME: Luther Castillo [facility] NO.: [id number] DATE OF SERVICE: 03/08/2022 : 1955 REFERRING [...] lifestyle modifications as discussed Consider adding carafate dbrzu-rrtd-wpbgogg will check with Dr. Clemente first Patient [...] Derrek Baker PA-C documented in this encounter [facility] 03-06-2022 Miscellaneous Notes Pt notified and voiced understanding. Mariangel Baum Ma ----- Message from Arsalan Ocampo MD sent at 03/06/2022 11:25 AM EST ----- Stomach and esophagus biopsy showed gastritis without cancer or dysplasia. H pylori negative. F/u with Derrek Baker as scheduled. documented in this encounter [facility] 02-27-2022 Nurse Note Pt received in PACU. Pt mildly drowsy, but arouses very easily. Denies pain or nausea. Abd soft and non distended. Lilibeth Stanton RN documented in this encounter [facility] 02-27-2022 History and physical note UPDATED PROCEDURAL [...] entered by the nurse and reviewed by nd Nursing Notes: Harika Cortez RN 01/25/2022 9:53 [...] patient was offered a surgery/procedure at a [facility] facility. I have counseled the patient regarding [...] patient was offered a surgery/procedure at a [facility] facility. I have counseled the patient regarding [...] Derrek Baker PA-C documented in this encounter [facility] 02-21-2022 Nurse Note The patient is here for an injection of Xgeva Dose: 120 mg Route: Subcutaneous Lot# [id number] Expiration date [facility]: 46726-766-82 Given without incident. Site: left arm Dr. Snow present in clinic at time of injection. The date due for the next injection is 1 month Patient education was given by nurse. Stephanie Duron RN documented in this encounter [facility] 02-14-2022 History of Present illness Narrative PATIENT NAME: Luther Castillo. CLINIC NO: [id number]. ATTENDING PHYSICIAN: Lillian Clemente MD. DATE OF SERVICE: 02/14/2022. DIAGNOSIS: Metastatic prostate cancer (M1) [place] 7 with skeletal metastasis -low-grade MDS /refractory [...] confirmed metastatic disease. Biopsy of prostate confirmed [place] 7, prostate cancer. He started androgen deprivation [...] Abs Lymph 1.00 - 4.00 k/uL 2.22 Ciales% % 8.2 Abs Ciales <0.87 k/uL 0.47 Eosin% % 1.9 Abs [...] with more than 50% of the total ceik-sp-mgye time of the visit in counseling / coordination of care. Portions of this documentation were copied and pasted from previous office visit notes in order to provide a cohesive continuity of the history. The note has been reviewed and edited and updated as necessary. Lillian Clemente MD Cc: MD Sp Scott DO documented in this encounter [facility] 01-21-2022 Miscellaneous Notes Patient's request for medication is as follows Requested Prescriptions Signed Prescriptions Disp Refills predniSONE (DELTASONE) 5 mg tablet 60 tablet 2 Sig: TAKE 1 TABLET BY MOUTH TWICE DAILY Authorizing Provider: LILLIAN CLEMENTE Order entered - please phone pharmacy and notify patient. Lillian Clemente MD documented in this encounter [facility] 12-13-2021 Nurse Note The patient is here for an injection of Xgeva Dose: 120 mg Route: Subcutaneous Lot# [id number] Expiration date [facility]: 69765-928-46 Given without incident. Site: left arm and right arm Dr. Mckeon present in clinic at time of injection. The date due for the next injection is 1 month Patient education was given by nurse. Stephanie Duron RN documented in this encounter [facility] 11-23-2021 Instructions Jessy Chase RN - 11/23/2021 [...] to 4 weeks. documented in this encounter [facility] 11-23-2021 History of Present illness Narrative Patient [...] in apparent distress Luther Castillo Medical Record: [id number] Date: 11/23/2021 Procedure: Cryosurgery The risks, benefits [...] Past Histories independently gathered by the clinical customer support executive and the remaining scribed note accurately describes my personal service to the patient. Judit Dejesus MD Return to clinic 6 months documented in this encounter [facility] 11-15-2021 Nurse Note Patient present for Xgeva injection 120mg injected into left upper arm subcutaneously. Lot #[id number] Exp 08/2023 documented in this encounter [facility] 11-13-2021 History of Present illness Narrative Chief [...] Lymph 1.00 - 4.00 k/uL 1.65 1.22 Ciales% % 7.2 6.1 Abs Ciales <0.87 k/uL 0.34 0.50 Eosin% % 1.5 [...] Arsalan Ocampo MD documented in this encounter [facility] 10-11-2021 Nurse Note The patient is here for an injection of Xgeva Dose: 60mg/1ml Calcium, Total Date Value Ref Range Status 08/24/2021 9.0 8.5 - 10.2 mg/dL Final Last Office Visit was 09/2021 Route: Subcutaneous Given without incident Site: right upper quadrant abdomen Lot number [id number] Expiration Date 08/2023 Dr. Mckeon present in [...] 45 mg IM left upper abdomen. Lot Number:[id number] Expiration date:11/2022 Patient tolerated well. FOLLOW UP: Next Dose: 6 months documented in this encounter [facility] 09-05-2021 Note HNO ID: [id number] Author: Sp Mckeon, DO Service: ? Author Type: Physician Type: Progress Notes Filed: 09/05/2021 10:48 AM Note Text: ?? [facility] [place] [facility] LOCATION: [address] [place] [address] ESTABLISHED PATIENT PATIENT INFO: Luther Castillo 66 [...] scan subsequently confirmed?metastatic disease.???Biopsy of prostate confirmed [place] 7,?prostate cancer. ? He started androgen deprivation [...] B. PROSTATE, BIOPSY, RIGHT MID: Prostatic adenocarcinoma, [place] score 4+3=7 (Grade group 3), involving 90% of one core (10 mm tumor length). - Percentage of [place] pattern 4 = 90%. - Expansile cribriform morphology is present. ? C. PROSTATE, BIOPSY, RIGHT APEX: Prostatic adenocarcinoma, [place] score 3+4=7 (Grade group 2), involving 35% [...] (10 mm tumor length). - Percentage of [place] pattern 4 = 10%. - Definitive cribriform [...] 77.7 Lymph% (%) Date Value 08/24/2021 14.8 Ciales% (%) Date Value 08/24/2021 6.1 Eosin% (%) Date Value 05/28/2021 1.5 Baso% (%) Date Value 08/24/2021 0.1 Abs Neut (k/uL) Date Value 08/24/2021 6.41 Abs Ciales (k/uL) Date Value 08/24/2021 0.50 Abs Eosin (k/uL) Date Value 08/24/2021 0.07 Abs Baso (k/uL) Date Value 08/24/2021 <0.03 Creatinine Date Value Ref Range Status 08/24/2021 0.98 0.73 - 1.22 mg/dL Final (more content not included)... [facility] 09-05-2021 History of Present illness Narrative Images from the original note were not included. [facility] [place] [facility] LOCATION: [address] [place] [address] ESTABLISHED PATIENT PATIENT INFO: Luther Castillo 66 [...] confirmed metastatic disease. Biopsy of prostate confirmed [place] 7, prostate cancer. He started androgen deprivation [...] A. PROSTATE, BIOPSY, RIGHT BASE: Prostatic adenocarcinoma, [place] score 3+4=7 (Grade group 2), involving 60% of one core (8 mm tumor length). - Percentage of Rasheed pattern 4 = 20%. - Expansile cribriform morphology is present. B. PROSTATE, BIOPSY, RIGHT MID: Prostatic adenocarcinoma, [place] score 4+3=7 (Grade group 3), involving 90% of one core (10 mm tumor length). - Percentage of Rasheed pattern 4 = 90%. - Expansile cribriform morphology is present. C. PROSTATE, BIOPSY, RIGHT APEX: Prostatic adenocarcinoma, [place] score 3+4=7 (Grade group 2), involving 35% of one core (3 mm tumor length). - Percentage of [place] pattern 4 = 5%. - Cribriform morphology [...] PROSTATE, BIOPSY, RIGHT LATERAL APEX: Prostatic adenocarcinoma, [place] score 3+4=7 (Grade group 2), involving 50% of one core (6.5 mm tumor length). - Percentage of Rasheed pattern 4 = 5%. - Cribriform morphology is absent. G. PROSTATE, BIOPSY, LEFT BASE: Prostatic adenocarcinoma, [place] score 3+3=6 (Grade group 1), involving 4% [...] 77.7 Lymph% (%) Date Value 08/24/2021 14.8 Ciales% (%) Date Value 08/24/2021 6.1 Eosin% (%) Date Value 05/28/2021 1.5 Baso% (%) Date Value 08/24/2021 0.1 Abs Neut (k/uL) Date Value 08/24/2021 6.41 Abs Ciales (k/uL) Date Value 08/24/2021 0.50 Abs Eosin [...] new diagnosis of metastatic prostate cancer (M1) Detroit score 7 & PSA 27; low-volume bone metastasis and no visceral metastasis. -Continue Zytiga 1,000mg in the morning & prednisone 5mg twice daily. -Continue Eligard every 6 months and denosumab monthly for bone metastasis -Continue Flomax I spent 30 minutes in the visit, with more than 50% of the total wbve-ci-ctxj time of the visit in counseling / coordination of care. Sp Mckeon DO MBA documented in this encounter [facility] 09-04-2021 Instructions MARGARITA Inman - 09/04/2021 2:32 PM EDT You can resume Omeprazole. documented in this encounter [facility] 09-04-2021 History of Present illness Narrative Reason for visit: Luther Castillo is a 66 y.o. male who presents to our [facility] for a second opinion for his metastatic prostate cancer. HPI: Mr. Castillo was initially seen by [facility] urologist, Dr. Nixon for PSA rise from [...] 89 Sister Alive Sister Alive [facility] MGF (Not Specified) PGF Son [...] A. PROSTATE, BIOPSY, RIGHT BASE: Prostatic adenocarcinoma, Detroit score 3+4=7 (Grade group 2), involving 60% of one core (8 mm tumor length). - Percentage of Detroit pattern 4 = 20%. - Expansile cribriform [...] (10 mm tumor length). - Percentage of [place] pattern 4 = 10%. - Definitive cribriform [...] to cancer genetics. documented in this encounter [facility] 08-29-2021 Miscellaneous Notes SOCIAL WORK DISTRESS ASSESSMENT [...] Feliz Assessment Completed documented in this encounter [facility] 08-28-2021 History of Present illness Narrative PATIENT NAME: Luther Castillo. CLINIC NO: [id number]. ATTENDING PHYSICIAN: Lillian Clemente MD. DATE OF SERVICE: 08/28/2021. DIAGNOSIS: Metastatic prostate cancer (M1) Detroit 7 with skeletal metastasis -low-grade MDS /refractory [...] Abs Lymph 1.00 - 4.00 k/uL 1.22 Ciales% % 6.1 Abs Ciales <0.87 k/uL 0.50 Eosin% % 0.8 Abs [...] with more than 50% of the total xami-ar-frfc time of the visit in counseling / coordination of care. Portions of this documentation were copied and pasted from previous office visit notes in order to provide a cohesive continuity of the history. The note has been reviewed and edited and updated as necessary. Lillian Clemetne MD. ELECTRONICALLY SIGNED Cc: Dr. Arsalan Mckeon DO documented in this encounter [facility] 08-24-2021 History of Present illness Narrative RADIOLOGY [...] safety can be found using this link: [email or web address] SIGNATURE: NOAH Bradshaw) PATIENT NAME: Luther Castillo DATE: August 24, 2021 TIME: 12:52 PM PAGER/CONTACT #: documented in this encounter [facility] 08-16-2021 Nurse Note The patient is here for an injection of Xgeva Dose: 120 mg Route: Subcutaneous Lot# [id number] Expiration date Given without incident. Site: left arm Dr. Mckeon present in clinic at time of injection. The date due for the next injection is 1 month Patient education was given by nurse. Stephanie Duron RN documented in this encounter [facility] 07-25-2021 Miscellaneous Notes Mare I put the wrong provider for this call he is a dr mckeon patient Patient phones requesting refills as follows: Pending Prescriptions Disp Refills TAMSULOSIN 0.4 MG CAPSULE 90 capsule 5 Sig: Take 1 capsule by mouth once daily. JESUS: No Please review and advise. Soraya Bishop Cma documented in this encounter [facility] 07-23-2021 Miscellaneous Notes Patient's request for medication [...] twice daily. JESUS: No To Rudy mccrary Marsteller Natalya Dorsey RN documented in this encounter [facility] 07-23-2021 Miscellaneous Notes Patient has been identified [...] Nika Roach Pss documented in this encounter [facility] 07-19-2021 Nurse Note Patient presents for monthly XGEVA injection Injection in right upper abdomen [id number] Exp 08/2023 documented in this encounter [facility] 07-17-2021 Miscellaneous Notes NO AUTHORIZATION REQUIRED Per [facility] Registration, patient has Medicare Part B as [...] problems. Assigned referral. documented in this encounter [facility] 07-06-2021 Miscellaneous Notes Pharmacies updated in [employer]. Thank you. Medication note added to [employer]. Sahara Mcneill LPN Patient calls and states that he has changed insurance and Romi will need to now go through [facility] ([phone]). He was told to call and let us know. He just received a refill and won't need another until the end of July. He would like a phone call when we do send out to [facility] so that he can reach out to them for more information about shipping/delivery. And, as an FYI, his retail pharmacy will change to [facility]. I asked him to remind us when he calls in for refills. Krista Dorsey RN documented in this encounter [facility] 07-05-2021 Miscellaneous Notes Patient's request for medication [...] Lillian Clemente MD documented in this encounter [facility] 07-13-2013 History of Past i llness Narrative [...] of this encounter (statuses as of 07/05/2021) [facility] of Past illness Narrative* Problem Noted [...] of this encounter (statuses as of 07/06/2021) [facility] Narrative* Problem Noted [...] of this encounter (statuses as of 07/17/2021) [facility] Narrative* Problem Noted [...] of this encounter (statuses as of 07/19/2021) [facility] Narrative* Problem Noted [...] of this encounter (statuses as of 07/23/2021) [facility] Narrative* Problem Noted [...] of this encounter (statuses as of 07/23/2021) [facility] Narrative* Problem Noted [...] of this encounter (statuses as of 07/24/2021) [facility] Narrative* Problem Noted [...] of this encounter (statuses as of 07/25/2021) [facility] Narrative* Problem Noted [...] of this encounter (statuses as of 08/16/2021) [facility] Narrative* Problem Noted [...] of this encounter (statuses as of 08/25/2021) [facility] Narrative* Problem Noted [...] of this encounter (statuses as of 08/25/2021) [facility] Narrative* Problem Noted [...] of this encounter (statuses as of 08/29/2021) [facility] Narrative* Problem Noted [...] of this encounter (statuses as of 08/29/2021) [facility] Narrative* Problem Noted [...] of this encounter (statuses as of 09/05/2021) [facility] Narrative* Problem Noted [...] of this encounter (statuses as of 10/05/2021) [facility] Narrative* Problem Noted [...] of this encounter (statuses as of 10/11/2021) [facility] N[facility]* Problem Noted [...] of this encounter (statuses as of 11/13/2021) [facility] N[facility]* Problem Noted [...] of this encounter (statuses as of 11/15/2021) [facility] N[facility]* Problem Noted [...] of this encounter (statuses as of 11/23/2021) [facility]* Problem Noted [...] of this encounter (statuses as of 12/13/2021) [facility]* Problem Noted [...] of this encounter (statuses as of 01/02/2022) [facility]* Problem Noted [...] of this encounter (statuses as of 01/21/2022) [facility]* Problem Noted [...] of this encounter (statuses as of 01/22/2022) [facility]* Problem Noted [...] of this encounter (statuses as of 02/15/2022) [facility]* Problem Noted [...] of this encounter (statuses as of 02/21/2022) [facility]* Problem Noted [...] of this encounter (statuses as of 03/06/2022) [facility]* Problem Noted [...] of this encounter (statuses as of 03/16/2022) [facility]* Problem Noted [...] of this encounter (statuses as of 03/21/2022) [facility]* Problem Noted [...] of this encounter (statuses as of 04/17/2022) [facility]* Problem Noted [...] of this encounter (statuses as of 04/24/2022) [facility]* Problem Noted [...] of this encounter (statuses as of 05/07/2022) [facility]* Problem Noted [...] of this encounter (statuses as of 05/08/2022) [facility]* Problem Noted [...] of this encounter (statuses as of 05/17/2022) [facility]* Problem Noted [...] of this encounter (statuses as of 06/14/2022) [facility]* Problem Noted [...] of this encounter (statuses as of 08/01/2022) [facility]* Problem Noted [...] of this encounter (statuses as of 08/19/2022) [facility]* Problem Noted [...] of this encounter (statuses as of 08/19/2022) [facility]* Problem Noted [...] of this encounter (statuses as of 09/12/2022) [facility]* Problem Noted [...] of this encounter (statuses as of 09/26/2022) [facility]* Problem Noted [...] of this encounter (statuses as of 10/01/2022) [facility]* Problem Noted [...] of this encounter (statuses as of 10/14/2022) [facility]* Problem Noted [...] of this encounter (statuses as of 10/24/2022) [facility]* Problem Noted [...] of this encounter (statuses as of 11/21/2022) [facility]* Problem Noted [...] of this encounter (statuses as of 11/21/2022) [facility]* Problem Noted [...] of this encounter (statuses as of 11/27/2022) [facility]* Problem Noted [...] of this encounter (statuses as of 12/02/2022) [facility]* Problem Noted [...] of this encounter (statuses as of 12/19/2022) [facility]* Problem Noted [...] of this encounter (statuses as of 01/16/2023) [facility]* Problem Noted [...] of this encounter (statuses as of 01/16/2023) [facility]* Problem Noted [...] of this encounter (statuses as of 01/16/2023) [facility]* Problem Noted [...] of this encounter (statuses as of 01/21/2023) [facility]* Problem Noted [...] of this encounter (statuses as of 02/09/2023) [facility]* Problem Noted [...] of this encounter (statuses as of 02/13/2023) [facility]* Problem Noted [...] of this encounter (statuses as of 02/19/2023) [facility]* Problem Noted [...] of this encounter (statuses as of 03/13/2023) [facility]* Problem Noted [...] of this encounter (statuses as of 03/18/2023) [facility]* Problem Noted [...] of this encounter (statuses as of 03/19/2023) [facility]* Problem Noted [...] of this encounter (statuses as of 03/28/2023) [facility]* Problem Noted [...] of this encounter (statuses as of 05/08/2023) [facility]* Problem Noted [...] of this encounter (statuses as of 05/16/2023) [facility]* Problem Noted [...] of this encounter (statuses as of 06/05/2023) [facility]* Problem Noted [...] of this encounter (statuses as of 06/11/2023) [facility]* Problem Noted [...] of this encounter (statuses as of 06/12/2023) [facility]* Problem Noted [...] of this encounter (statuses as of 06/16/2023) [facility]* Problem Noted [...] of this encounter (statuses as of 06/18/2023) [facility]* Problem Noted [...] of this encounter (statuses as of 06/18/2023) [facility]* Problem Noted [...] of this encounter (statuses as of 06/18/2023) [facility] Narr[facility]* Problem Noted [...] encounter (statuses as of 06/19/2023) [facility] No data available for this section 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) [facility] Diagnosis Prostate cancer metastatic to bone (HCC) [facility] Diagnosis 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 and other lower urinary tract symptoms (LUTS) [facility] Diagnosis Prostate cancer (HCC)- Primary Malignant neoplasm of prostate [facility] Diagnosis Prostate cancer metastatic to bone (HCC) Malignant neoplasm of prostate (HCC) Malignant neoplasm of prostate [facility] Diagnosis 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) Bone metastasis (HCC) Secondary malignant neoplasm of bone and bone marrow [facility] Diagnosis BPH with elevated PSA Hypertrophy of prostate without urinary obstruction and other lower urinary tract symptoms (LUTS) [facility] Diagnosis Prostate cancer- Primary Malignant neoplasm of prostate [facility] Prostate cancer (HCC) Malignant neoplasm of prostate [facility] Diagnosis Prostate cancer (HCC)- Primary Malignant [...] malignant neoplasms, colon [facility] Diagnosis Prostate cancer (HCC)- Primary Malignant neoplasm of prostate [facility] Diagnosis Notalgia paresthetica- Primary Disturbance of skin sensation Actinic keratosis Seborrheic keratosis Other seborrheic keratosis Cabrera angioma Nevus, non-neoplastic Lentigines Other dyschromia Multiple benign nevi Benign neoplasm of skin, site unspecified Personal history of skin cancer Personal history of other malignant neoplasm of skin [facility] Diagnosis Malignant neoplasm of prostate (HCC)- Primary Malignant neoplasm of prostate Prostate cancer (HCC) Malignant neoplasm of prostate [facility] Diagnosis 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) [facility] Diagnosis 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) [facility] Prostate cancer metastatic to bone (HCC)- Primary 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 Bone metastasis (HCC) Secondary malignant neoplasm of bone and bone marrow Family history of prostate cancer in father [facility] Prostate cancer (HCC)- Primary Malignant neoplasm of prostate [facility] Diagnosis Chronic superficial gastritis without bleeding- [...] nonthrombocytopenic purpuras [facility] Diagnosis Hemorrhoids, unspecified hemorrhoid type- Primary Perianal cyst Other specified disorder of rectum and anus [facility] Diagnosis Prostate cancer (HCC)- Primary Malignant neoplasm of prostate [facility] Diagnosis Prostate cancer metastatic to bone (HCC) [facility] Diagnosis Screening for colon cancer- Primary Special screening for malignant neoplasms, colon History of colon polyps Personal history of colonic polyps Epigastric pain Abdominal pain, epigastric Gastroesophageal reflux disease, unspecified whether esophagitis present History of anemia Personal history of diseases of blood and blood-forming organs [facility] Diagnosis Prostate cancer (HCC)- Primary Malignant neoplasm of prostate [facility] Diagnosis 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 [facility] Diagnosis Prostate cancer (HCC)- Primary Malignant neoplasm of prostate [facility] Diagnosis Hyperlipidemia, mixed- Primary Mixed hyperlipidemia [facility] Diagnosis Prostate cancer (HCC)- Primary Malignant neoplasm of prostate [facility] Diagnosis 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 [facility] Diagnosis Prostate cancer (HCC)- Primary Malignant neoplasm of prostate 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 [facility] Diagnosis SOB (shortness of breath)- Primary Shortness of breath Chest pain, unspecified type Acute left-sided low back pain, unspecified whether sciatica present [facility] Diagnosis SOB (shortness of breath) Shortness of breath Chest pain, unspecified type [facility] Diagnosis 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 Prostate cancer (HCC) Malignant neoplasm of prostate [facility] Diagnosis 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 [facility] Prostate cancer (HCC)- Primary Malignant neoplasm of prostate 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 [facility] Diagnosis Prostate cancer (HCC)- Primary Malignant neoplasm of prostate 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 [facility] Prostate cancer (HCC)- Primary Malignant neoplasm of prostate [facility] Diagnosis Prostate cancer metastatic to bone (HCC) [facility] Diagnosis SOB (shortness of breath)- Primary Shortness of breath Abnormal ECG Nonspecific abnormal electrocardiogram (ECG) (EKG) Chest pain, unspecified type Mixed hyperlipidemia [facility] Diagnosis Prostate cancer metastatic to bone (HCC)- Primary 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 [facility] Diagnosis Prostate cancer (HCC)- Primary Malignant neoplasm of prostate 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 [facility] Diagnosis 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 [facility] Diagnosis SOB (shortness of breath) Shortness of breath Abnormal ECG Nonspecific abnormal electrocardiogram (ECG) (EKG) Chest pain, unspecified type Mixed hyperlipidemia [facility] Diagnosis 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 and other lower urinary tract symptoms (LUTS) documented [facility]* Diagnosis 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 Prostate cancer (HCC) Malignant neoplasm of prostate [facility] Diagnosis Xerosis cutis- Primary Other specified disease of sebaceous glands Actinic keratosis Seborrheic keratosis Other seborrheic keratosis Lentigines Other dyschromia Cabrera angioma Nevus, non-neoplastic Multiple benign nevi Benign neoplasm of skin, site unspecified Personal history of skin cancer Personal history of other malignant neoplasm of skin [facility]* Diagnosis Prostate cancer metastatic to bone (HCC)- Primary Abdominal pain, unspecified abdominal location Acute left-sided low back pain, unspecified whether sciatica present [facility] Diagnosis Prostate cancer metastatic to bone (HCC) Abdominal pain, unspecified abdominal location Acute left-sided low back pain, unspecified whether sciatica present [facility] Diagnosis Prostate cancer (HCC)- Primary Malignant neoplasm of prostate 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 [facility] Diagnosis SOB (shortness of breath) Shortness of breath Chest pain, unspecified type [facility] Diagnosis Left hip pain- Primary Pain in joint, pelvic region and thigh [facility] Diagnosis Left hip pain Pain in joint, pelvic region and thigh [facility] Diagnosis 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 Prostate cancer (HCC) Malignant neoplasm of prostate [facility] Diagnosis Right hip pain- Primary Pain in joint, pelvic region and thigh Prostate cancer (HCC) Malignant neoplasm of prostate 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 [facility]* Diagnosis Left hip pain- Primary Pain in joint, pelvic region and thigh Radiculopathy, lumbar region Thoracic or lumbosacral neuritis or radiculitis, unspecified Decreased ROM of lumbar spine Weakness of trunk musculature Muscle weakness (generalized) documented [facility] Diagnosis Left inguinal pain- Primary Abdominal pain, left lower quadrant Spinal stenosis of lumbar region, unspecified whether neurogenic claudication present Left inguinal pain Abdominal pain, left lower quadrant [facility] Diagnosis Left inguinal pain Abdominal pain, left lower quadrant [facility]* Diagnosis 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 [facility] Diagnosis Left hip pain- Primary Pain [...] myelodysplastic syndrome lesions [facility] Diagnosis Prostate cancer (HCC)- Primary Malignant neoplasm of prostate 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) [facility] Diagnosis Vitamin D deficiency- Primary Unspecified vitamin D deficiency Iron deficiency Iron deficiency anemia, unspecified SOB (shortness of breath) Shortness of breath Mixed hyperlipidemia documented in this encounter [facility] note* Diagnosis Prostate cancer (HCC)- Primary Malignant neoplasm of prostate 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 [facility]* Diagnosis Prostate cancer (HCC)- Primary Malignant neoplasm of prostate documented in this encounter [facility] for referral (narrative)* Diagnostic Procedure Only (Routine) - Closed Specialty Diagnoses / Procedures Referred By Contac t Referred To Contact MOLECULAR & FUNCTIONAL IMAGING Diagnoses Prostate cancer metastatic to bone (HCC) Malignant neoplasm of prostate (HCC) Procedures NM BONE WHOLE BODY BONE &/JOINT IMAGING WHOLE BODY Lillian Clemente MD [address] [place] [address] Molecular & Functional Imaging [address] [place] [address] Referral ID Status Reason Start Date Expiration Date V isits Requested Visits Authorized [id number] Closed Auto-Generate d Referral 08/26/2021 06/28/2022 1 1 [facility] for referral (narrative)* Outpatient Procedure (Routine) - Closed Specialty Diagnoses / Procedures Referred By Contac t Referred To Contact [facility] Diagnoses Epigastric pain Gastroesophageal reflux disease, unspecified whether esophagitis present History of anemia Procedures EGD DIAGNOSTIC ESOPHAGOGASTRODUODENOSC OPY TRANSORAL DIAGNOSTIC Derrek Baker PA-C [address] [place] [address] [facility] [place] [address] [place] [address] Referral ID Status Reason Start Date Expiration Date V isits Requested Visits Authorized [id number] Closed Auto-Generate d Referral 01/25/2022 01/25/2023 1 1 * Outpatient Procedure (Routine) - Closed Specialty Diagnoses / Procedures Referred By Contac t Referred To Contact [facility] Diagnoses History of colon polyps Procedures COLONOSCOPY DIAGNOSTIC COLONOSCOPY FLX DX W/COLLJ SPEC WHEN PFRMD Derrek Baker PA-C [address] [facility] [place] [address] [facility] [address] [address] Referral ID Status Reason Start Date Expiration Date V isits Requested Visits Authorized [id number] Closed Auto-Generate d Referral 01/25/2022 01/25/2023 1 1 [facility] for referral (narrative)* Outpatient Procedure (Urgent) - Closed Specialty Diagnoses / Procedures Referred By Contac t Referred To Contact [facility] Diagnoses SOB (shortness of breath) Chest pain, unspecified type Procedures EXERCISE STRESS ECG (WITHOUT IMAGING) Catherine Peraza APRN.CNP [address] [place] [address] [address] Referral ID Status Reason Start Date Expiration Date V isits Requested Visits Authorized [id number] Closed Auto-Generate d Referral 06/11/2023 06/10/2024 1 1 [facility] for referral (narrative)* Diagnostic Procedure Only (Routine) - New Request Specialty Diagnoses / Procedures Referred By Contact Referred To Contact MOLECULAR [facility] FUNCTIONAL IMAGING Diagnoses SOB (shortness of breath) Abnormal ECG Chest pain, unspecified type Mixed hyperlipidemia Abnormal electrocardiogram Procedures NM CARDIAC PERF STRESS/EXERCISE MYOCARDIAL SPECT MULTIPLE STUDIES Dorcas Champagne, [address] [place] [address] [facility] [address] [place] [id number] Referral ID Status Reason Start Date Expiration Date Visits Requested Visits Authorized [id number] New Request Auto-Generat ed Referral 10/16/2023 11/14/2024 1 1 [facility] for referral (narrative)* Diagnostic Procedure Only (Routine) - Closed Specialty Diagnoses / Procedures Referred By Contact Referred To Contact [facility]LECULAR [facility] FUN[facility]AG[facility] Diagnoses SOB (shortness of breath) Abnormal ECG Chest pain, unspecified type Mixed hyperlipidemia Abnormal electrocardiogram Procedures NM CARDIAC PERF STRESS/EXERCISE MYOCARDIAL SPECT MULTIPLE STUDIES Dorcas Champagne [place] [facility] [place] [address] Molecular [facility] [address] [place] [address] Referral ID Status Reason Start Date Expiration Date V isits Requested Visits Authorized [id number] Closed Auto-Generate d Referral 10/16/2023 11/14/2024 1 1 [facility] for referral (narrative)* Diagnostic Procedure Only (Routine) - Closed Specialty Diagnoses / Procedures Referred By Leslee esquivel Referred To Contact US IMAGING Diagnoses Left inguinal pain LLQ abdominal pain Procedures US DOPPLER COMPLETE DUP-SCAN ARTL KIRSTY ABDL/PEL/SCROT&/RPR ORGN [facility] Arsalan Ocampo MD [address] [place] [address] [facility] [place] [address] Referral ID Status Reason Start Date Expiration Date V isits Requested Visits Authorized [id number] Closed Auto-Generate d Referral 02/03/2024 03/04/2025 1 1 * Diagnostic Procedure Only (Urgent) - Closed Specialty Diagnoses / Procedures Referred By Leslee esquivel Referred To Contact US IMAGING Diagnoses Left inguinal pain LLQ abdominal pain Procedures US SCROTUM AND CONTENTS US SCROTUM & CONTENTS Arsalan Ocampo MD [address] [place] [address] [place] [id number] Referral ID Status Reason Start Date Expiration Date V isits Requested Visits Authorized [id number] Closed Auto-Generate d Referral 02/03/2024 03/04/2025 1 1 [facility] for visit Narrative* Diagnostic Procedure Only (Routine) - Closed Specialty Diagnoses / Procedures Referred By Contac t Referred To Contact [facility] Diagnoses Prostate cancer metastatic to bone (HCC) Malignant neoplasm of prostate (HCC) Procedures NM BONE WHOLE BODY BONE &/JOINT IMAGING WHOLE BODY Lillian Clemente MD [address] [facility] [address] Molecular [facility] Functional Imaging [address] [place], [place] [id number] Referral ID Status Reason Start Date Expiration Date V isits Requested Visits Authorized [id number] Closed Auto-Generate d Referral 08/26/2021 06/28/2022 1 1 [facility] for visit Narrative* Outpatient Procedure (Routine) - Closed Specialty Diagnoses / Procedures Referred By Contac t Referred To Contact [facility] Diagnoses Epigastric pain Gastroesophageal reflux disease, unspecified whether esophagitis present History of anemia Procedures EGD DIAGNOSTIC ESOPHAGOGASTRODUODENOSC OPY TRANSORAL DIAGNOSTIC Derrek Baker PA-C [address] [place] [address] [facility] [place] [address] [place], [place] [id number] Referral ID Status Reason Start Date Expiration Date V isits Requested Visits Authorized [id number] Closed Auto-Generate d Referral 01/25/2022 01/25/2023 1 1 [facility] for visit Narrative* Outpatient Procedure (Urgent) - Closed Specialty Diagnoses / Procedures Referred By Contac t Referred To Contact [facility] Diagnoses SOB (shortness of breath) Chest pain, unspecified type Procedures EXERCISE STRESS ECG (WITHOUT IMAGING) Catherine Peraza APRN.PROGRAMMER BUSINESS [address] [place] [address] [facility] [place] [address] [place] [address] Referral ID Status Reason Start Date Expiration Date V isits Requested Visits Authorized [id number] Closed Auto-Generate d Referral 06/11/2023 06/10/2024 1 1 [facility] for visit Narrative* Diagnostic Procedure Only (Routine) - Closed Specialty Diagnoses / Procedures Referred By Contact Referred To Contact MOLECULAR [facility] FUNCTIONAL IMAGING Diagnoses SOB (shortness of breath) Abnormal ECG Chest pain, unspecified type Mixed hyperlipidemia Abnormal electrocardiogram Procedures NM CARDIAC PERF STRESS/EXERCISE MYOCARDIAL SPECT MULTIPLE STUDIES Dorcas Champagne, DO [address] [place] [address] [facility] [address] [place] [address] Referral ID Status Reason Start Date Expiration Date V isits Requested Visits Authorized [id number] Closed Auto-Generate d Referral 10/16/2023 11/14/2024 1 1 [facility] for visit Narrative* Diagnostic Procedure Only (Routine) - Closed Specialty Diagnoses / Procedures Referred By Contac t Referred To Contact XR IMAGING Diagnoses Left hip pain Procedures XR HIP GENERAL 3V PELV/AP/LAT LEFT RADEX HIP UNILATERAL WITH PELVIS 2-3 VIEWS PodlogarCatherine APRN.JOI [address] [place] [address] Xr Imaging [facility]95 Referral ID Status Reason Start Date Expiration Date V isits Requested Visits Authorized [id number] Closed Auto-Generate d Referral 12/24/2023 01/22/2025 1 1 [facility] for visit Narrative* Diagnostic Procedure Only (Routine) - Closed Specialty Diagnoses / Procedures Referred By Contac t Referred To Contact US IMAGING Diagnoses Left inguinal pain LLQ abdominal pain Procedures US DOPPLER COMPLETE DUP-SCAN ARTL KIRSTY ABDL/PEL/SCROT&/RPR ORGN COM Arsalan Ocampo MD [address] [place] [address] [place] [address] Referral ID Status Reason Start Date Expiration Date V isits Requested Visits Authorized [id number] Closed Auto-Generate d Referral 02/03/2024 03/04/2025 1 1 [facility] for visit Narrative* Gita Prior Authorization (Routine) - Authorized Specialty Diagnoses / Procedures Referred By Contjersey t Referred To Contact Diagnoses 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) Procedures DARBEPOETIN DAGMAR, NON-ESRD Dereje Herring MD [address] [place] [address] Phone: tel: Dereje Herring MD [address] [place] [address] Phone: tel: Referral ID Status Reason Start Date Expiration Date V isits Requested Visits Authorized [id number] Authorized 08/16/2024 02/11/2025 99 99 [facility] Summary Purpose Family History No Family History Records FoundNo Family History Records FoundNo Family History Records FoundNo Family History Records FoundNo Family History Records FoundNo Family History Records FoundNo Family History Records FoundNo Family History Records FoundNo Family History Records Found Advance Directives No Advanced Directives Records FoundDocuments on File Type Date Recorded 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 Advance Directive(s) 08/09/2020 12:28 PM Advance Directive(s) 07/31/2020 9:26 AM Advance Directive(s) 02/10/2017 12:25 PM Advance Directive(s) 10/10/2016 10:52 AM Advance Directive(s) 02/26/2016 3:45 PM Advance Directive(s) 02/21/2016 11:13 AM Advance Directive(s) 03/10/2012 4:03 PM Documents on File Type Date Recorded 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 Advance Directive(s) 08/09/2020 12:28 PM Advance Directive(s) 07/31/2020 9:26 AM Advance Directive(s) 02/10/2017 12:25 PM Advance Directive(s) 10/10/2016 10:52 AM Advance Directive(s) 02/26/2016 3:45 PM Advance Directive(s) 02/21/2016 11:13 AM Advance Directive(s) 03/10/2012 4:03 PM Documents on File Type Date Recorded 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 Advance Directive(s) 03/10/2012 4:03 PM Documents on File Type Date Recorded 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 Advance Directive(s) 03/10/2012 4:03 [...] Date Dose Rate Site benzocaine 20% 1 [place] (TOPEX) 1 [place], TOPICAL, DIRECTED, Starting on Fri02/27/22 at 0930, [...] cancer Procedures CONSULT TO GENERAL SURGERY OFFICE/[facility] 60-74 MINUTES Arsalan Ocampo MD [address] [place] [address] Referral ID Status Reason Start Date Expiration Date Visits Requested Visits Authorized [id number] Authorized PCP Requested Referral 11/13/2021 11/13/2022 1 1 Specialty Diagnoses / Procedures Referred By Contac t Referred To Contact Diagnoses 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) Bone metastasis (HCC) Family history of prostate cancer in father Procedures CONSULT TO [facility] CANCER GENETIC COUNSELING MEDICAL GENETICS COUNSELING EACH 30 MINUTES Lillian Clemente MD [address] [place] [address] [address] Referral ID Status Reason Start Date Expiration Date Visits Requested Visits Authorized [id number] Authorized PCP Requested Referral Auto-Generate d Referral 02/14/2023 1 1 Specialty Diagnoses / Procedures Referred By Contac t Referred To Contact Cardiology Diagnoses SOB (shortness of breath) Chest pain, unspecified type Procedures CONSULT TO CARDIOLOGY OFFICE/[facility] 60 MINUTES PodlogCatherine verduzco APRN.JOI [address] [place] [address] Referral ID Status Reason Start Date Expiration Date Visits Requested Visits Authorized [id number] Authorized PCP Requested Referral 06/11/2023 06/10/2024 1 1 Specialty Diagnoses / Procedures Referred By Contac t Referred To Contact [facility] Diagnoses SOB (shortness of breath) Chest pain, unspecified type Procedures EXERCISE STRESS ECG (WITHOUT IMAGING) PodlogCatherine verduzco APRN.PROGRAMMER BUSINESS [address] [place] [address] [facility] [place] [address] [place] [address] Referral ID Status Reason Start Date Expiration Date Visits Requested Visits Authorized [id number] Authorized Auto-Generat ed Referral 06/11/2023 06/10/2024 1 1 Specialty Diagnoses / Procedures Referred By Contac t Referred To Contact [facility] Diagnoses SOB (shortness of breath) Chest pain, unspecified type Procedures ECHO ECHO TTHRC R-T 2D W/WOM-MODE COMPL SPEC&COLR D Podlogar, Catherine, SENIOR PRODUCER.PROGRAMMER BUSINESS [address] [place] [address] [facility] [address] [place] [address] Referral ID Status Reason Start Date Expiration Date Visits Requested Visits Authorized [id number] Authorized Auto-Generat ed Referral 06/11/2023 06/10/2024 1 1 Specialty Diagnoses / Procedures Referred By Contac t Referred To Contact [facility] Diagnoses SOB (shortness of breath) Chest pain, unspecified type Procedures ECG COMPLETE ECG ROUTINE ECG W/LEAST 12 LDS W/I&R Podlogar, Catherine, SENIOR PRODUCER.PROGRAMMER BUSINESS [address] [place] [address] [facility] [address] [place] [address] Referral ID Status Reason Start Date Expiration Date Visits Requested Visits Authorized [id number] Pending Review Auto-Generat ed Referral 06/11/2023 06/10/2024 [...] W/CONTRAST MATERIAL Tee Ellis [address] [place] [address] [place] [address] Referral ID Status Reason Start Date Expiration Date Visits Requested Visits Authorized [id number] Authorized Auto-Generat ed Referral 12/05/2023 01/03/2025 1 1 Specialty Diagnoses / Procedures Referred By Contac t Referred To Contact CT IMAGING Diagnoses Prostate cancer metastatic to bone (HCC) Abdominal pain, unspecified abdominal location Acute left-sided low back pain, unspecified whether sciatica present Procedures CT ABD/PEL WO IVCON CT ABD & PELVIS W/O CONTRAST Tee Ellis [address] [place] [address] [place] [address] Referral ID Status Reason Start Date Expiration Date Visits Requested Visits Authorized [id number] Authorized Auto-Generat ed Referral 12/05/2023 01/03/2025 1 1 Referral ID Status Reason Start Date Expiration Date V isits Requested Visits Authorized [id number] Closed Auto-Generate d Referral 12/05/2023 01/03/2025 1 1 Referral ID Status Reason Start Date Expiration Date V isits Requested Visits Authorized [id number] Closed Auto-Generate d Referral 12/05/2023 01/03/2025 1 1 Specialty Diagnoses / Procedures Referred By Contac t Referred To Contact [facility] Diagnoses Left hip pain Procedures CONSULT TO PHYSICAL THERAPY PHYSICAL THERAPY EVALUATION [facility] 45 MINS Podlogar, DORIS Alexander.PROGRAMMER BUSINESS [address] [place] [address] [facility] [place] [address] [place] [address] Referral ID Status Reason Start Date Expiration Date Visits Requested Visits Authorized [id number] Authorized PCP Requested Referral Auto-Generate d Referral 12/24/2023 12/23/2024 99 99 Specialty Diagnoses / Procedures Referred By Contac t Referred To Contact XR IMAGING Diagnoses Left hip pain Procedures XR HIP GENERAL 3V PELV/AP/LAT LEFT RADEX HIP UNILATERAL WITH PELVIS 2-3 VIEWS Podlogar, DORIS Alexander.PROGRAMMER BUSINESS [address] [place] [address] [place] [address] Referral ID Status Reason Start Date Expiration Date V isits Requested Visits Authorized [id number] Closed Auto-Generate d Referral 12/24/2023 01/22/2025 1 1 Specialty Diagnoses / Procedures Referred By Contac t Referred To Contact Orthopedics Diagnoses Right hip pain Procedures CONSULT TO ORTHOPAEDICS OFFICE/[facility] [place] [address] [place] [address] Referral ID Status Reason Start Date Expiration Date Visits Requested Visits Authorized [id number] Authorized PCP Requested Referral 01/20/2025 1 1 Specialty Diagnoses / Procedures Referred By Contac t Referred To Contact Diagnoses Left inguinal pain LLQ abdominal pain Arsalan Ocampo MD [address] [place] [address] Referral ID Status Reason Start Date Expiration Date Visits Re quested Visits Authorized [id number] Closed 1 1 Specialty Diagnoses / Procedures Referred By Contac t Referred To Contact US IMAGING Diagnoses Left inguinal pain LLQ abdominal pain Procedures US DOPPLER COMPLETE DUP-SCAN ARTL KIRSTY ABDL/PEL/SCROT&/RPR ORGN COM Arsalan Ocampo MD [address] [place] [address] [place] [address] Referral ID Status Reason Start Date Expiration Date V isits Requested Visits Authorized [id number] Closed Auto-Generate d Referral 02/03/2024 03/04/2025 1 1 Specialty Diagnoses / Procedures Referred By Contac t Referred To Contact US IMAGING Diagnoses Left inguinal pain LLQ abdominal pain Procedures US SCROTUM AND CONTENTS US SCROTUM & CONTENTS Arsalan Ocampo MD [address] [place] [address] [place] [address] Referral ID Status Reason Start Date Expiration Date V isits Requested Visits Authorized [id number] Closed Auto-Generate d Referral 02/03/2024 03/04/2025 1 1 Specialty Diagnoses / Procedures Referred By Contac t Referred To Contact Pain Management Diagnoses Osteoarthritis of spine with radiculopathy, lumbar region Chronic left hip pain Procedures CONSULT TO PAIN MGT OFFICE/[facility] 60 MINUTES Vicente Roach MD [address] [place] [address] Pallavi Foster, SENIOR PRODUCER.PROGRAMMER BUSINESS [address] [place] [address] Referral ID Status Reason Start Date Expiration Date Visits Requested Visits Authorized [id number] Authorized PCP Requested Referral 4 03/22/2025 1 1 Specialty Diagnoses / Procedures Referred By Contac t Referred To Contact Dermatology Diagnoses Squamous cell carcinoma of scalp Procedures MOHS OFFICE/OUTPATIENT NEW HIGH MDM 60 MINUTES Richie Dejesus MD [address] [place] [address] Referral ID Status Reason Start Date Expiration Date Visits Requested Visits Authorized [id number] Authorized PCP Requested Referral 2024 2025 1 1 Additional Source Comments (unrecognized sect ion and content) No Status Records FoundNo Status Records FoundNo Status Records FoundNo Status Records FoundNo Status Records FoundNo Status Records FoundNo Status Records FoundNo Status Records FoundNo Status Records Found INFORMATION SOURCE (unrecogn ized section and content) DATE CREATED AUTHOR 09/30/2017 [facility] DATE CREATED AUTHOR AUTHOR'S ORGANIZ ATION 10/01/2017 [facility] DATE CREATED AUTHOR AUTHOR'S ORGANIZ ATION 09/10/2021 [facility] DATE CREATED AUTHOR AUTHOR'S ORGANIZ ATION 05/08/2022 [facility] DATE CREATED AUTHOR AUTHOR'S ORGANIZ ATION 10/18/2022 [facility] DATE CREATED AUTHOR AUTHOR'S ORGANIZ ATION 11/13/2023 [facility] DATE CREATED AUTHOR AUTHOR'S ORGANIZ ATION 03/19/2024 [facility] DATE CREATED AUTHOR AUTHOR'S ORGANIZ ATION 05/14/2024 [facility] nt DATE CREATED AUTHOR AUTHOR'S ORGANIZ ATION 09/17/2024 [facility] Source Comments (unrecognize d section and content) In the event this informatio n is protected by the Federal Confidentiality of Alcohol and Drug Abuse Patient Records regulations: The Federal rules restrict any use of the information to criminally investigate or prosecute any alcohol or drug abuse patient.[facility]In the event this information is protected by the Federal Confidentiality of Alcohol and Drug Abuse Patient Records regulations: The Federal rules restrict any use of the information to criminally investigate or prosecute any alcohol or drug abuse patient.[facility] HospitalIn the event this information is protected by the Federal Confidentiality of Alcohol and Drug Abuse Patient Records regulations: The Federal rules restrict any use of the information to criminally investigate or prosecute any alcohol or drug abuse patient.[facility] HospitalIn the event this information is protected by the Federal Confidentiality of Alcohol and Drug Abuse Patient Records regulations: The Federal rules restrict any use of the information to criminally investigate or prosecute any alcohol or drug abuse patient.[facility] HospitalIn the event this information is protected by the Federal Confidentiality of Alcohol and Drug Abuse Patient Records regulations: The Federal rules restrict any use of the information to criminally investigate or prosecute any alcohol or drug abuse patient.[facility] HospitalIn the event this information is protected by the Federal Confidentiality of Alcohol and Drug Abuse Patient Records regulations: The Federal rules restrict any use of the information to criminally investigate or prosecute any alcohol or drug abuse patient.[facility] HospitalIn the event this information is protected by the Federal Confidentiality of Alcohol and Drug Abuse Patient Records regulations: The Federal rules restrict any use of the information to criminally investigate or prosecute any alcohol or drug abuse patient.[facility] HospitalIn the event this information is protected by the Federal Confidentiality of Alcohol and Drug Abuse Patient Records regulations: The Federal rules restrict any use of the information to criminally investigate or prosecute any alcohol or drug abuse patient.[facility] HospitalIn the event this information is protected by the Federal Confidentiality of Alcohol and Drug Abuse Patient Records regulations: The Federal rules restrict any use of the information to criminally investigate or prosecute any alcohol or drug abuse patient.[facility] HospitalIn the event this information is protected by the Federal Confidentiality of Alcohol and Drug Abuse Patient Records regulations: The Federal rules restrict any use of the information to criminally investigate or prosecute any alcohol or drug abuse patient.[facility] HospitalIn the event this information is protected by the Federal Confidentiality of Alcohol and Drug Abuse Patient Records regulations: The Federal rules restrict any use of the information to criminally investigate or prosecute any alcohol or drug abuse patient.[facility] HospitalIn the event this information is protected by the Federal Confidentiality of Alcohol and Drug Abuse Patient Records regulations: The Federal rules restrict any use of the information to criminally investigate or prosecute any alcohol or drug abuse patient.[facility] HospitalIn the event this information is protected by the Federal Confidentiality of Alcohol and Drug Abuse Patient Records regulations: The Federal rules restrict any use of the information to criminally investigate or prosecute any alcohol or drug abuse patient.[facility] HospitalIn the event this information is protected by the Federal Confidentiality of Alcohol and Drug Abuse Patient Records regulations: The Federal rules restrict any use of the information to criminally investigate or prosecute any alcohol or drug abuse patient.[facility] HospitalIn the event this information is protected by the Federal Confidentiality of Alcohol and Drug Abuse Patient Records regulations: The Federal rules restrict any use of the information to criminally investigate or prosecute any alcohol or drug abuse patient.[facility] HospitalIn the event this information is protected by the Federal Confidentiality of Alcohol and Drug Abuse Patient Records regulations: The Federal rules restrict any use of the information to criminally investigate or prosecute any alcohol or drug abuse patient.[facility] HospitalIn the event this information is protected by the Federal Confidentiality of Alcohol and Drug Abuse Patient Records regulations: The Federal rules restrict any use of the information to criminally investigate or prosecute any alcohol or drug abuse patient.[facility] HospitalIn the event this information is protected by the Federal Confidentiality of Alcohol and Drug Abuse Patient Records regulations: The Federal rules restrict any use of the information to criminally investigate or prosecute any alcohol or drug abuse patient.[facility] HospitalIn the event this information is protected by the Federal Confidentiality of Alcohol and Drug Abuse Patient Records regulations: The Federal rules restrict any use of the information to criminally investigate or prosecute any alcohol or drug abuse patient.[facility] HospitalIn the event this information is protected by the Federal Confidentiality of Alcohol and Drug Abuse Patient Records regulations: The Federal rules restrict any use of the information to criminally investigate or prosecute any alcohol or drug abuse patient.[facility] HospitalIn the event this information is protected by the Federal Confidentiality of Alcohol and Drug Abuse Patient Records regulations: The Federal rules restrict any use of the information to criminally investigate or prosecute any alcohol or drug abuse patient.[facility] HospitalIn the event this information is protected by the Federal Confidentiality of Alcohol and Drug Abuse Patient Records regulations: The Federal rules restrict any use of the information to criminally investigate or prosecute any alcohol or drug abuse patient.[facility] HospitalIn the event this information is protected by the Federal Confidentiality of Alcohol and Drug Abuse Patient Records regulations: The Federal rules restrict any use of the information to criminally investigate or prosecute any alcohol or drug abuse patient.[facility] HospitalIn the event this information is protected by the Federal Confidentiality of Alcohol and Drug Abuse Patient Records regulations: The Federal rules restrict any use of the information to criminally investigate or prosecute any alcohol or drug abuse patient.[facility] HospitalIn the event this information is protected by the Federal Confidentiality of Alcohol and Drug Abuse Patient Records regulations: The Federal rules restrict any use of the information to criminally investigate or prosecute any alcohol or drug abuse patient.[facility] HospitalIn the event this information is protected by the Federal Confidentiality of Alcohol and Drug Abuse Patient Records regulations: The Federal rules restrict any use of the information to criminally investigate or prosecute any alcohol or drug abuse patient.[facility] HospitalIn the event this information is protected by the Federal Confidentiality of Alcohol and Drug Abuse Patient Records regulations: The Federal rules restrict any use of the information to criminally investigate or prosecute any alcohol or drug abuse patient.[facility] HospitalIn the event this information is protected by the Federal Confidentiality of Alcohol and Drug Abuse Patient Records regulations: The Federal rules restrict any use of the information to criminally investigate or prosecute any alcohol or drug abuse patient.[facility] HospitalIn the event this information is protected by the Federal Confidentiality of Alcohol and Drug Abuse Patient Records regulations: The Federal rules restrict any use of the information to criminally investigate or prosecute any alcohol or drug abuse patient.[facility] HospitalIn the event this information is protected by the Federal Confidentiality of Alcohol and Drug Abuse Patient Records regulations: The Federal rules restrict any use of the information to criminally investigate or prosecute any alcohol or drug abuse patient.[facility] HospitalIn the event this information is protected by the Federal Confidentiality of Alcohol and Drug Abuse Patient Records regulations: The Federal rules restrict any use of the information to criminally investigate or prosecute any alcohol or drug abuse patient.[facility] HospitalIn the event this information is protected by the Federal Confidentiality of Alcohol and Drug Abuse Patient Records regulations: The Federal rules restrict any use of the information to criminally investigate or prosecute any alcohol or drug abuse patient.[facility] HospitalIn the event this information is protected by the Federal Confidentiality of Alcohol and Drug Abuse Patient Records regulations: The Federal rules restrict any use of the information to criminally investigate or prosecute any alcohol or drug abuse patient.[facility] HospitalIn the event this information is protected by the Federal Confidentiality of Alcohol and Drug Abuse Patient Records regulations: The Federal rules restrict any use of the information to criminally investigate or prosecute any alcohol or drug abuse patient.[facility] HospitalIn the event this information is protected by the Federal Confidentiality of Alcohol and Drug Abuse Patient Records regulations: The Federal rules restrict any use of the information to criminally investigate or prosecute any alcohol or drug abuse patient.[facility] HospitalIn the event this information is protected by the Federal Confidentiality of Alcohol and Drug Abuse Patient Records regulations: The Federal rules restrict any use of the information to criminally investigate or prosecute any alcohol or drug abuse patient.[facility] HospitalIn the event this information is protected by the Federal Confidentiality of Alcohol and Drug Abuse Patient Records regulations: The Federal rules restrict any use of the information to criminally investigate or prosecute any alcohol or drug abuse patient.[facility] HospitalIn the event this information is protected by the Federal Confidentiality of Alcohol and Drug Abuse Patient Records regulations: The Federal rules restrict any use of the information to criminally investigate or prosecute any alcohol or drug abuse patient.[facility] HospitalIn the event this information is protected by the Federal Confidentiality of Alcohol and Drug Abuse Patient Records regulations: The Federal rules restrict any use of the information to criminally investigate or prosecute any alcohol or drug abuse patient.[facility] HospitalIn the event this information is protected by the Federal Confidentiality of Alcohol and Drug Abuse Patient Records regulations: The Federal rules restrict any use of the information to criminally investigate or prosecute any alcohol or drug abuse patient.[facility] HospitalIn the event this information is protected by the Federal Confidentiality of Alcohol and Drug Abuse Patient Records regulations: The Federal rules restrict any use of the information to criminally investigate or prosecute any alcohol or drug abuse patient.[facility] HospitalIn the event this information is protected by the Federal Confidentiality of Alcohol and Drug Abuse Patient Records regulations: The Federal rules restrict any use of the information to criminally investigate or prosecute any alcohol or drug abuse patient.[facility] HospitalIn the event this information is protected by the Federal Confidentiality of Alcohol and Drug Abuse Patient Records regulations: The Federal rules restrict any use of the information to criminally investigate or prosecute any alcohol or drug abuse patient.[facility] HospitalIn the event this information is protected by the Federal Confidentiality of Alcohol and Drug Abuse Patient Records regulations: The Federal rules restrict any use of the information to criminally investigate or prosecute any alcohol or drug abuse patient.[facility] HospitalIn the event this information is protected by the Federal Confidentiality of Alcohol and Drug Abuse Patient Records regulations: The Federal rules restrict any use of the information to criminally investigate or prosecute any alcohol or drug abuse patient.[facility] HospitalIn the event this information is protected by the Federal Confidentiality of Alcohol and Drug Abuse Patient Records regulations: The Federal rules restrict any use of the information to criminally investigate or prosecute any alcohol or drug abuse patient.[facility] HospitalIn the event this information is protected by the Federal Confidentiality of Alcohol and Drug Abuse Patient Records regulations: The Federal rules restrict any use of the information to criminally investigate or prosecute any alcohol or drug abuse patient.[facility] HospitalIn the event this information is protected by the Federal Confidentiality of Alcohol and Drug Abuse Patient Records regulations: The Federal rules restrict any use of the information to criminally investigate or prosecute any alcohol or drug abuse patient.[facility] HospitalIn the event this information is protected by the Federal Confidentiality of Alcohol and Drug Abuse Patient Records regulations: The Federal rules restrict any use of the information to criminally investigate or prosecute any alcohol or drug abuse patient.[facility] HospitalIn the event this information is protected by the Federal Confidentiality of Alcohol and Drug Abuse Patient Records regulations: The Federal rules restrict any use of the information to criminally investigate or prosecute any alcohol or drug abuse patient.[facility] HospitalIn the event this information is protected by the Federal Confidentiality of Alcohol and Drug Abuse Patient Records regulations: The Federal rules restrict any use of the information to criminally investigate or prosecute any alcohol or drug abuse patient.[facility] HospitalIn the event this information is protected by the Federal Confidentiality of Alcohol and Drug Abuse Patient Records regulations: The Federal rules restrict any use of the information to criminally investigate or prosecute any alcohol or drug abuse patient.[facility] HospitalIn the event this information is protected by the Federal Confidentiality of Alcohol and Drug Abuse Patient Records regulations: The Federal rules restrict any use of the information to criminally investigate or prosecute any alcohol or drug abuse patient.[facility] HospitalIn the event this information is protected by the Federal Confidentiality of Alcohol and Drug Abuse Patient Records regulations: The Federal rules restrict any use of the information to criminally investigate or prosecute any alcohol or drug abuse patient.[facility] HospitalIn the event this information is protected by the Federal Confidentiality of Alcohol and Drug Abuse Patient Records regulations: The Federal rules restrict any use of the information to criminally investigate or prosecute any alcohol or drug abuse patient.[facility] HospitalIn the event this information is protected by the Federal Confidentiality of Alcohol and Drug Abuse Patient Records regulations: The Federal rules restrict any use of the information to criminally investigate or prosecute any alcohol or drug abuse patient.[facility] HospitalIn the event this information is protected by the Federal Confidentiality of Alcohol and Drug Abuse Patient Records regulations: The Federal rules restrict any use of the information to criminally investigate or prosecute any alcohol or drug abuse patient.[facility] HospitalIn the event this information is protected by the Federal Confidentiality of Alcohol and Drug Abuse Patient Records regulations: The Federal rules restrict any use of the information to criminally investigate or prosecute any alcohol or drug abuse patient.[facility] HospitalIn the event this information is protected by the Federal Confidentiality of Alcohol and Drug Abuse Patient Records regulations: The Federal rules restrict any use of the information to criminally investigate or prosecute any alcohol or drug abuse patient.[facility] HospitalIn the event this information is protected by the Federal Confidentiality of Alcohol and Drug Abuse Patient Records regulations: The Federal rules restrict any use of the information to criminally investigate or prosecute any alcohol or drug abuse patient.[facility] HospitalIn the event this information is protected by the Federal Confidentiality of Alcohol and Drug Abuse Patient Records regulations: The Federal rules restrict any use of the information to criminally investigate or prosecute any alcohol or drug abuse patient.[facility] HospitalIn the event this information is protected by the Federal Confidentiality of Alcohol and Drug Abuse Patient Records regulations: The Federal rules restrict any use of the information to criminally investigate or prosecute any alcohol or drug abuse patient.[facility] HospitalIn the event this information is protected by the Federal Confidentiality of Alcohol and Drug Abuse Patient Records regulations: The Federal rules restrict any use of the information to criminally investigate or prosecute any alcohol or drug abuse patient.[facility] HospitalIn the event this information is protected by the Federal Confidentiality of Alcohol and Drug Abuse Patient Records regulations: The Federal rules restrict any use of the information to criminally investigate or prosecute any alcohol or drug abuse patient.[facility] HospitalIn the event this information is protected by the Federal Confidentiality of Alcohol and Drug Abuse Patient Records regulations: The Federal rules restrict any use of the information to criminally investigate or prosecute any alcohol or drug abuse patient.[facility] HospitalIn the event this information is protected by the Federal Confidentiality of Alcohol and Drug Abuse Patient Records regulations: The Federal rules restrict any use of the information to criminally investigate or prosecute any alcohol or drug abuse patient.[facility] HospitalIn the event this information is protected by the Federal Confidentiality of Alcohol and Drug Abuse Patient Records regulations: The Federal rules restrict any use of the information to criminally investigate or prosecute any alcohol or drug abuse patient.[facility] HospitalIn the event this information is protected by the Federal Confidentiality of Alcohol and Drug Abuse Patient Records regulations: The Federal rules restrict any use of the information to criminally investigate or prosecute any alcohol or drug abuse patient.[facility] HospitalIn the event this information is protected by the Federal Confidentiality of Alcohol and Drug Abuse Patient Records regulations: The Federal rules restrict any use of the information to criminally investigate or prosecute any alcohol or drug abuse patient.[facility] HospitalIn the event this information is protected by the Federal Confidentiality of Alcohol and Drug Abuse Patient Records regulations: The Federal rules restrict any use of the information to criminally investigate or prosecute any alcohol or drug abuse patient.[facility] HospitalIn the event this information is protected by the Federal Confidentiality of Alcohol and Drug Abuse Patient Records regulations: The Federal rules restrict any use of the information to criminally investigate or prosecute any alcohol or drug abuse patient.[facility] HospitalIn the event this information is protected by the Federal Confidentiality of Alcohol and Drug Abuse Patient Records regulations: The Federal rules restrict any use of the information to criminally investigate or prosecute any alcohol or drug abuse patient.[facility] HospitalIn the event this information is protected by the Federal Confidentiality of Alcohol and Drug Abuse Patient Records regulations: The Federal rules restrict any use of the information to criminally investigate or prosecute any alcohol or drug abuse patient.[facility] HospitalIn the event this information is protected by the Federal Confidentiality of Alcohol and Drug Abuse Patient Records regulations: The Federal rules restrict any use of the information to criminally investigate or prosecute any alcohol or drug abuse patient.[facility] HospitalIn the event this information is protected by the Federal Confidentiality of Alcohol and Drug Abuse Patient Records regulations: The Federal rules restrict any use of the information to criminally investigate or prosecute any alcohol or drug abuse patient.[facility] HospitalIn the event this information is protected by the Federal Confidentiality of Alcohol and Drug Abuse Patient Records regulations: The Federal rules restrict any use of the information to criminally investigate or prosecute any alcohol or drug abuse patient.[facility]In the event this information is protected by the Federal Confidentiality of Alcohol and Drug Abuse Patient Records regulations: The Federal rules restrict any use of the information to criminally investigate or prosecute any alcohol or drug abuse patient.[facility]In the event this information is protected by the Federal Confidentiality of Alcohol and Drug Abuse Patient Records regulations: The Federal rules restrict any use of the information to criminally investigate or prosecute any alcohol or drug abuse patient.[facility]In the event this information is protected by the Federal Confidentiality of Alcohol and Drug Abuse Patient Records regulations: The Federal rules restrict any use of the information to criminally investigate or prosecute any alcohol or drug abuse patient.[facility]In the event this information is protected by the Federal Confidentiality of Alcohol and Drug Abuse Patient Records regulations: The Federal rules restrict any use of the information to criminally investigate or prosecute any alcohol or drug abuse patient.[facility] HospitalIn the event this information is protected by the Federal Confidentiality of Alcohol and Drug Abuse Patient Records regulations: The Federal rules restrict any use of the information to criminally investigate or prosecute any alcohol or drug abuse patient.[facility] HospitalIn the event this information is protected by the Federal Confidentiality of Alcohol and Drug Abuse Patient Records regulations: The Federal rules restrict any use of the information to criminally investigate or prosecute any alcohol or drug abuse patient.[facility] HospitalIn the event this information is protected by the Federal Confidentiality of Alcohol and Drug Abuse Patient Records regulations: The Federal rules restrict any use of the information to criminally investigate or prosecute any alcohol or drug abuse patient.[facility] HospitalIn the event this information is protected by the Federal Confidentiality of Alcohol and Drug Abuse Patient Records regulations: The Federal rules restrict any use of the information to criminally investigate or prosecute any alcohol or drug abuse patient.[facility] HospitalIn the event this information is protected by the Federal Confidentiality of Alcohol and Drug Abuse Patient Records regulations: The Federal rules restrict any use of the information to criminally investigate or prosecute any alcohol or drug abuse patient.[facility] HospitalIn the event this information is protected by the Federal Confidentiality of Alcohol and Drug Abuse Patient Records regulations: The Federal rules restrict any use of the information to criminally investigate or prosecute any alcohol or drug abuse patient.[facility] HospitalIn the event this information is protected by the Federal Confidentiality of Alcohol and Drug Abuse Patient Records regulations: The Federal rules restrict any use of the information to criminally investigate or prosecute any alcohol or drug abuse patient.[facility] HospitalIn the event this information is protected by the Federal Confidentiality of Alcohol and Drug Abuse Patient Records regulations: The Federal rules restrict any use of the information to criminally investigate or prosecute any alcohol or drug abuse patient.[facility] HospitalIn the event this information is protected by the Federal Confidentiality of Alcohol and Drug Abuse Patient Records regulations: The Federal rules restrict any use of the information to criminally investigate or prosecute any alcohol or drug abuse patient.[facility] HospitalIn the event this information is protected by the Federal Confidentiality of Alcohol and Drug Abuse Patient Records regulations: The Federal rules restrict any use of the information to criminally investigate or prosecute any alcohol or drug abuse patient.[facility] HospitalIn the event this information is protected by the Federal Confidentiality of Alcohol and Drug Abuse Patient Records regulations: The Federal rules restrict any use of the information to criminally investigate or prosecute any alcohol or drug abuse patient.[facility] HospitalIn the event this information is protected by the Federal Confidentiality of Alcohol and Drug Abuse Patient Records regulations: The Federal rules restrict any use of the information to criminally investigate or prosecute any alcohol or drug abuse patient.[facility] HospitalIn the event this information is protected by the Federal Confidentiality of Alcohol and Drug Abuse Patient Records regulations: The Federal rules restrict any use of the information to criminally investigate or prosecute any alcohol or drug abuse patient.[facility] HospitalIn the event this information is protected by the Federal Confidentiality of Alcohol and Drug Abuse Patient Records regulations: The Federal rules restrict any use of the information to criminally investigate or prosecute any alcohol or drug abuse patient.[facility] HospitalIn the event this information is protected by the Federal Confidentiality of Alcohol and Drug Abuse Patient Records regulations: The Federal rules restrict any use of the information to criminally investigate or prosecute any alcohol or drug abuse patient.[facility] HospitalIn the event this information is protected by the Federal Confidentiality of Alcohol and Drug Abuse Patient Records regulations: The Federal rules restrict any use of the information to criminally investigate or prosecute any alcohol or drug abuse patient.[facility] HospitalIn the event this information is protected by the Federal Confidentiality of Alcohol and Drug Abuse Patient Records regulations: The Federal rules restrict any use of the information to criminally investigate or prosecute any alcohol or drug abuse patient.[facility] HospitalIn the event this information is protected by the Federal Confidentiality of Alcohol and Drug Abuse Patient Records regulations: The Federal rules restrict any use of the information to criminally investigate or prosecute any alcohol or drug abuse patient.[facility] HospitalIn the event this information is protected by the Federal Confidentiality of Alcohol and Drug Abuse Patient Records regulations: The Federal rules restrict any use of the information to criminally investigate or prosecute any alcohol or drug abuse patient.[facility] HospitalIn the event this information is protected by the Federal Confidentiality of Alcohol and Drug Abuse Patient Records regulations: The Federal rules restrict any use of the information to criminally investigate or prosecute any alcohol or drug abuse patient.[facility] HospitalIn the event this information is protected by the Federal Confidentiality of Alcohol and Drug Abuse Patient Records regulations: The Federal rules restrict any use of the information to criminally investigate or prosecute any alcohol or drug abuse patient.[facility] HospitalIn the event this information is protected by the Federal Confidentiality of Alcohol and Drug Abuse Patient Records regulations: The Federal rules restrict any use of the information to criminally investigate or prosecute any alcohol or drug abuse patient.[facility] HospitalIn the event this information is protected by the Federal Confidentiality of Alcohol and Drug Abuse Patient Records regulations: The Federal rules restrict any use of the information to criminally investigate or prosecute any alcohol or drug abuse patient.[facility] HospitalIn the event this information is protected by the Federal Confidentiality of Alcohol and Drug Abuse Patient Records regulations: The Federal rules restrict any use of the information to criminally investigate or prosecute any alcohol or drug abuse patient.[facility] HospitalIn the event this information is protected by the Federal Confidentiality of Alcohol and Drug Abuse Patient Records regulations: The Federal rules restrict any use of the information to criminally investigate or prosecute any alcohol or drug abuse patient.[facility] HospitalIn the event this information is protected by the Federal Confidentiality of Alcohol and Drug Abuse Patient Records regulations: The Federal rules restrict any use of the information to criminally investigate or prosecute any alcohol or drug abuse patient.[facility] HospitalIn the event this information is protected by the Federal Confidentiality of Alcohol and Drug Abuse Patient Records regulations: The Federal rules restrict any use of the information to criminally investigate or prosecute any alcohol or drug abuse patient.[facility] HospitalIn the event this information is protected by the Federal Confidentiality of Alcohol and Drug Abuse Patient Records regulations: The Federal rules restrict any use of the information to criminally investigate or prosecute any alcohol or drug abuse patient.[facility] HospitalIn the event this information is protected by the Federal Confidentiality of Alcohol and Drug Abuse Patient Records regulations: The Federal rules restrict any use of the information to criminally investigate or prosecute any alcohol or drug abuse patient.[facility] HospitalIn the event this information is protected by the Federal Confidentiality of Alcohol and Drug Abuse Patient Records regulations: The Federal rules restrict any use of the information to criminally investigate or prosecute any alcohol or drug abuse patient.[facility] HospitalIn the event this information is protected by the Federal Confidentiality of Alcohol and Drug Abuse Patient Records regulations: The Federal rules restrict any use of the information to criminally investigate or prosecute any alcohol or drug abuse patient.[facility] HospitalIn the event this information is protected by the Federal Confidentiality of Alcohol and Drug Abuse Patient Records regulations: The Federal rules restrict any use of the information to criminally investigate or prosecute any alcohol or drug abuse patient.[facility] HospitalIn the event this information is protected by the Federal Confidentiality of Alcohol and Drug Abuse Patient Records regulations: The Federal rules restrict any use of the information to criminally investigate or prosecute any alcohol or drug abuse patient.[facility] HospitalIn the event this information is protected by the Federal Confidentiality of Alcohol and Drug Abuse Patient Records regulations: The Federal rules restrict any use of the information to criminally investigate or prosecute any alcohol or drug abuse patient.[facility] HospitalIn the event this information is protected by the Federal Confidentiality of Alcohol and Drug Abuse Patient Records regulations: The Federal rules restrict any use of the information to criminally investigate or prosecute any alcohol or drug abuse patient.[facility] HospitalIn the event this information is protected by the Federal Confidentiality of Alcohol and Drug Abuse Patient Records regulations: The Federal rules restrict any use of the information to criminally investigate or prosecute any alcohol or drug abuse patient.[facility] HospitalIn the event this information is protected by the Federal Confidentiality of Alcohol and Drug Abuse Patient Records regulations: The Federal rules restrict any use of the information to criminally investigate or prosecute any alcohol or drug abuse patient.[facility] HospitalIn the event this information is protected by the Federal Confidentiality of Alcohol and Drug Abuse Patient Records regulations: The Federal rules restrict any use of the information to criminally investigate or prosecute any alcohol or drug abuse patient.[facility] HospitalIn the event this information is protected by the Federal Confidentiality of Alcohol and Drug Abuse Patient Records regulations: The Federal rules restrict any use of the information to criminally investigate or prosecute any alcohol or drug abuse patient.[facility] HospitalIn the event this information is protected by the Federal Confidentiality of Alcohol and Drug Abuse Patient Records regulations: The Federal rules restrict any use of the information to criminally investigate or prosecute any alcohol or drug abuse patient.[facility] HospitalIn the event this information is protected by the Federal Confidentiality of Alcohol and Drug Abuse Patient Records regulations: The Federal rules restrict any use of the information to criminally investigate or prosecute any alcohol or drug abuse patient.[facility] HospitalIn the event this information is protected by the Federal Confidentiality of Alcohol and Drug Abuse Patient Records regulations: The Federal rules restrict any use of the information to criminally investigate or prosecute any alcohol or drug abuse patient.[facility] HospitalIn the event this information is protected by the Federal Confidentiality of Alcohol and Drug Abuse Patient Records regulations: The Federal rules restrict any use of the information to criminally investigate or prosecute any alcohol or drug abuse patient.[facility] HospitalIn the event this information is protected by the Federal Confidentiality of Alcohol and Drug Abuse Patient Records regulations: The Federal rules restrict any use of the information to criminally investigate or prosecute any alcohol or drug abuse patient.[facility] HospitalIn the event this information is protected by the Federal Confidentiality of Alcohol and Drug Abuse Patient Records regulations: The Federal rules restrict any use of the information to criminally investigate or prosecute any alcohol or drug abuse patient.[facility] HospitalIn the event this information is protected by the Federal Confidentiality of Alcohol and Drug Abuse Patient Records regulations: The Federal rules restrict any use of the information to criminally investigate or prosecute any alcohol or drug abuse patient.[facility] HospitalIn the event this information is protected by the Federal Confidentiality of Alcohol and Drug Abuse Patient Records regulations: The Federal rules restrict any use of the information to criminally investigate or prosecute any alcohol or drug abuse patient.[facility] HospitalIn the event this information is protected by the Federal Confidentiality of Alcohol and Drug Abuse Patient Records regulations: The Federal rules restrict any use of the information to criminally investigate or prosecute any alcohol or drug abuse patient.[facility] HospitalIn the event this information is protected by the Federal Confidentiality of Alcohol and Drug Abuse Patient Records regulations: The Federal rules restrict any use of the information to criminally investigate or prosecute any alcohol or drug abuse patient.[facility] HospitalIn the event this information is protected by the Federal Confidentiality of Alcohol and Drug Abuse Patient Records regulations: The Federal rules restrict any use of the information to criminally investigate or prosecute any alcohol or drug abuse patient.[facility] HospitalIn the event this information is protected by the Federal Confidentiality of Alcohol and Drug Abuse Patient Records regulations: The Federal rules restrict any use of the information to criminally investigate or prosecute any alcohol or drug abuse patient.[facility] HospitalIn the event this information is protected by the Federal Confidentiality of Alcohol and Drug Abuse Patient Records regulations: The Federal rules restrict any use of the information to criminally investigate or prosecute any alcohol or drug abuse patient.[facility] HospitalIn the event this information is protected by the Federal Confidentiality of Alcohol and Drug Abuse Patient Records regulations: The Federal rules restrict any use of the information to criminally investigate or prosecute any alcohol or drug abuse patient.[facility] HospitalIn the event this information is protected by the Federal Confidentiality of Alcohol and Drug Abuse Patient Records regulations: The Federal rules restrict any use of the information to criminally investigate or prosecute any alcohol or drug abuse patient.[facility] HospitalIn the event this information is protected by the Federal Confidentiality of Alcohol and Drug Abuse Patient Records regulations: The Federal rules restrict any use of the information to criminally investigate or prosecute any alcohol or drug abuse patient.[facility] HospitalIn the event this information is protected by the Federal Confidentiality of Alcohol and Drug Abuse Patient Records regulations: The Federal rules restrict any use of the information to criminally investigate or prosecute any alcohol or drug abuse patient.[facility] HospitalIn the event this information is protected by the Federal Confidentiality of Alcohol and Drug Abuse Patient Records regulations: The Federal rules restrict any use of the information to criminally investigate or prosecute any alcohol or drug abuse patient.[facility] HospitalIn the event this information is protected by the Federal Confidentiality of Alcohol and Drug Abuse Patient Records regulations: The Federal rules restrict any use of the information to criminally investigate or prosecute any alcohol or drug abuse patient.[facility] HospitalIn the event this information is protected by the Federal Confidentiality of Alcohol and Drug Abuse Patient Records regulations: The Federal rules restrict any use of the information to criminally investigate or prosecute any alcohol or drug abuse patient.[facility] HospitalIn the event this information is protected by the Federal Confidentiality of Alcohol and Drug Abuse Patient Records regulations: The Federal rules restrict any use of the information to criminally investigate or prosecute any alcohol or drug abuse patient.[facility] HospitalIn the event this information is protected by the Federal Confidentiality of Alcohol and Drug Abuse Patient Records regulations: The Federal rules restrict any use of the information to criminally investigate or prosecute any alcohol or drug abuse patient.[facility] HospitalIn the event this information is protected by the Federal Confidentiality of Alcohol and Drug Abuse Patient Records regulations: The Federal rules restrict any use of the information to criminally investigate or prosecute any alcohol or drug abuse patient.[facility] HospitalIn the event this information is protected by the Federal Confidentiality of Alcohol and Drug Abuse Patient Records regulations: The Federal rules restrict any use of the information to criminally investigate or prosecute any alcohol or drug abuse patient.[facility] HospitalIn the event this information is protected by the Federal Confidentiality of Alcohol and Drug Abuse Patient Records regulations: The Federal rules restrict any use of the information to criminally investigate or prosecute any alcohol or drug abuse patient.[facility] HospitalIn the event this information is protected by the Federal Confidentiality of Alcohol and Drug Abuse Patient Records regulations: The Federal rules restrict any use of the information to criminally investigate or prosecute any alcohol or drug abuse patient.[facility] HospitalIn the event this information is protected by the Federal Confidentiality of Alcohol and Drug Abuse Patient Records regulations: The Federal rules restrict any use of the information to criminally investigate or prosecute any alcohol or drug abuse patient.[facility] HospitalIn the event this information is protected by the Federal Confidentiality of Alcohol and Drug Abuse Patient Records regulations: The Federal rules restrict any use of the information to criminally investigate or prosecute any alcohol or drug abuse patient.[facility] HospitalIn the event this information is protected by the Federal Confidentiality of Alcohol and Drug Abuse Patient Records regulations: The Federal rules restrict any use of the information to criminally investigate or prosecute any alcohol or drug abuse patient.[facility] Reason for Visit (unrecogniz ed section and content) Reason Comments Imm/Inj Specialty Diagnoses / Procedures Referred By Contac t Referred To Contact Diagnoses 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) Procedures DARBEPOETIN DAGMAR, [place] [address] [place] [address] Phone: tel: fax: Hematology/Oncology [address] [place] [address] Phone: tel: fax: Referral ID Status Reason Start Date Expiration Date V isits Requested Visits Authorized [id number] Authorized 03/13/2023 10/12/2024 99 99 Reason Comments Physical Therapy Specialty Diagnoses / Procedures Referred By Contac t Referred To Contact Physical Therapy / PHYSICAL THERAPY Diagnoses Left hip pain Procedures CONSULT TO PHYSICAL THERAPY PHYSICAL THERAPY EVALUATION HIGH COMPLEX 45 MINS Podlogar, DORIS Alexander.[employer] [address] [place] [address] Endy Curran, PT [address] [place] [address] Referral ID Status Reason Start Date Expiration Date Visits Requested Visits Authorized [id number] Authorized PCP Requested Referral Auto-Generate d Referral 04/07/2023 04/06/2024 99 99 Reason Comments PT Progress Note Specialty Diagnoses / Procedures Referred By Contac t Referred To Contact Diagnoses Prostate cancer (HCC) Sanjeev Aranda APRN.[employer] [address] [place] [address] [facility] [address] [place] [address] Referral ID Status Reason Start Date Expiration Date V isits Requested Visits Authorized [id number] Authorized 08/20/2022 11/18/2022 99 99 Specialty Diagnoses / Procedures Referred By Contac t Referred To Contact Diagnoses 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) Procedures DARBEPOETIN DAGMAR, [place] [address] [place] [address] [facility] [address] [place] [address] Referral ID Status Reason Start Date Expiration Date V isits Requested Visits Authorized [id number] Pending Review 03/13/2023 10/22/2023 99 99 Referral ID Status Reason Start Date Expiration Date V isits Requested Visits Authorized [id number] Pending Review 03/13/2023 07/03/2023 99 99 Referral ID Status Reason Start Date Expiration Date V isits Requested Visits Authorized [id number] Authorized 08/20/2022 11/18/2022 99 99 Referral ID Status Reason Start Date Expiration Date V isits Requested Visits Authorized [id number] Pending Review 03/13/2023 05/08/2023 99 99 Reason [...] Lillian Clemente MD [address] [facility] [place] [address] Referral ID Status Reason Start Date Expiration Date V isits Requested Visits Authorized [id number] Closed PCP Requested Referral 03/13/2021 03/13/2022 1 [...] MD [address] [place] [address] Referral ID Status Reason Start Date Expiration Date V isits Requested Visits Authorized [id number] New Request 09/04/2021 09/29/2022 1 1 Reason [...] HIGH MDM 60-74 MINUTES Arsalan Ocampo MD [address] [place] [address] Referral ID Status Reason Start Date Expiration Date V isits Requested Visits Authorized [id number] Closed PCP Requested Referral 10/30/2022 10/30/2023 1 [...] NEW HIGH MDM 60 MINUTES Podlogar, DORIS Alexander.[employer] [address] [place] [address] Referral ID Status Reason Start Date Expiration Date V isits Requested Visits Authorized [id number] Closed PCP Requested Referral 06/11/2023 06/10/2024 1 [...] W/[employer] Tee Ellis [address] [place] [address] [facility] [place] [address] Referral ID Status Reason Start Date Expiration Date V isits Requested Visits Authorized [id number] Closed Auto-Generate d Referral 12/05/2023 01/03/2025 1 1 Referral ID Status Reason Start Date Expiration Date V isits Requested Visits Authorized [id number] Authorized 03/13/2023 12/16/2023 99 99 Reason Comments Pain Left hip/lower back pain for the last 8 months, this flare up is lasting 7 weeks. Noticed it initially started when oncology started a new med. Reason Comments Results hip xray results Referral ID Status Reason Start Date Expiration Date V isits Requested Visits Authorized [id number] Pending Review 03/13/2023 06/24/2024 99 99 Reason Comments PT Eval Reason Comments Groin Pain Reason Comments Insurance Authorization cyclobenzaprine Referral ID Status Reason Start Date Expiration Date V isits Requested Visits Authorized [id number] Authorized 03/13/2023 08/10/2024 99 99 Reason Comments Medicare Wellness Exam Reason Onset Date Comments Refill Request 03/15/2024 Reason Comments Actinic Keratosis Reason Comments New Pain Referred by Dr. Herring Last seen 01/06/17 biceps tendinitis Specialty Diagnoses / Procedures Referred By Contac t Referred To Contact Orthopedics Diagnoses Right hip pain Procedures CONSULT TO ORTHOPAEDICS OFFICE/OUTPATIENT NEW HIGH M[place] 60 [place] [address] [place] [id number] Referral ID Status Reason Start Date Expiration Date V isits Requested Visits Authorized [id number] Closed PCP Requested Referral 01/21/2024 01/20/2025 1 1 Reason Comments Appointment Appointment cancelle d Reason Comments LESION, SKIN Reason Comments SKIN CANCER Reason Onset Date Comments Refill Request 05/18/2024 Reason Comments Mohs Specialty Diagnoses / Procedures Referred By Contac t Referred To Contact Dermatology Diagnoses Squamous cell carcinoma of scalp Procedures MOHS OFFICE/OUTPATIENT NEW HIGH MDM 60 MINUTES Richie Dejesus MD [address] [place] [address] Phone: tel: fax: Referral ID Status Reason Start Date Expiration Date V isits Requested Visits Authorized [id number] Closed PCP Requested Referral 2024 2025 1 1 Reason Comments Consult Specialty Diagnoses / Procedures Referred By Contac t Referred To Contact Radiation Oncology Diagnoses Squamous cell carcinoma of scalp Procedures RAD/ONC CONSULT OFFICE/OUTPATIENT NEW HIGH MDM 60 MINUTES Madelaine Bronson MD [address] [place] [address] Phone: tel: fax: Referral ID Status Reason Start Date Expiration Date V isits Requested Visits Authorized [id number] Closed PCP Requested Referral 06/17/2024 06/17/2025 1 1 Specialty Diagnoses / Procedures Referred By Contac t Referred To Contact Diagnoses 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) Procedures DARBEPOETIN DAGMAR, NON-ESRD Dereje Herring MD [address] [place] [address] Phone: tel: Hematology/Oncology [address] [place] [address] Phone: tel: fax: Reason Comments Follow Up C/o SOB w/ Mild Acti vityEdema Bilat feet/anklesChronic HS coughDr Heather f/u DX: SOB, Chest painEKG TodayStress 11/12/23ECHO 07/03/23Stress 06/17/23 Reason Comments Imm/Inj SQ Specialty Diagnoses / Procedures Referred By Leslee t Referred To Contact Diagnoses Prostate cancer (HCC) Sanjeev Aranda APRN.PROGRAMMER BUSINESS [address] [place] [address] Phone: tel: fax: Sanjeev Aranda APRN.PROGRAMMER BUSINESS [address] [place] [address] Phone: tel: fax: Referral ID Status Reason Start Date Expiration Date V isits Requested Visits Authorized [id number] Authorized 03/02/2025 05/31/2025 99 99 Care Teams (unrecognized sec tion and content) Crew Team Member Relationship Specialty Start Date End Date Arsalan Ocampo MD [address] [place], [place] [id number] PCP - General Family Practice 12/08/20 Natalya Dorsey RN [address] [place] [address] Milk Driver Hematology/Oncology 05/03/21 Crew Team Member Relationship Specialty Start Date End Date Arsalan Ocampo MD [address] [place], [place] [id number] [phone] PCP - General Family Practice 12/08/20 Natalya Dorsey RN [address] [place] [address] Milk Driver Hematology/Oncology 05/03/21 Crew Team Member Relationship Specialty Start Date End Date Arsalan Ocampo MD [address] [facility] [place] [address] PCP - General Family Practice 12/08/20 Natalya Dorsey RN [address] [address] Milk Driver Hematology/Oncology 05/03/21 Crew Team Member Relationship Specialty Start Date End Date Arsalan Ocampo MD [address] [facility] [place] [address] PCP - General Family Practice 12/08/20 Natalya Dorsey RN [address] [place] [address] Milk Driver Hematology/Oncology 05/03/21 Crew Team Member Relationship Specialty Start Date End Date Arsalan Ocampo MD [address] [facility] [place] [address] PCP - General Family Practice 12/08/20 Natalya Dorsey, ERIN [address] [address] Milk Driver Hematology/Oncology 05/03/21 Crew Team Member Relationship Specialty Start Date End Date Arsalan Ocampo MD [address] [facility] [place] [address] PCP - General Family Practice 12/08/20 Natalya Dorsey, ERIN [address] [place] [address] Milk Driver Hematology/Oncology 05/03/21 Crew Team Member Relationship Specialty Start Date End Date Arsalan Ocampo MD [address] [facility] [place] [address] PCP - General Family Practice 12/08/20 Natalya Dorsey RN [address] [place] [address] Milk Driver Hematology/Oncology 05/03/21 Crew Team Member Relationship Specialty Start Date End Date Arsalan Ocampo MD [address] [facility] [address] PCP - General Family Practice 12/08/20 Natalya Dorsey RN [address] [place] [address] Specialty Creative Guru Hematology/Oncology 05/03/21 Crew Team Member Relationship Specialty Start Date End Date Arsalan Ocampo MD [address] [facility] [address] PCP - General Family Practice 12/08/20 Natalya Dorsey RN [address] [place] [address] Specialty Creative Guru Hematology/Oncology 05/03/21 Crew Team Member Relationship Specialty Start Date End Date Arsalan Ocampo MD [address] [facility] [address] PCP - General Family Practice 12/08/20 Natalya Dorsey RN [address] [place] [address] Specialty Creative Guru Hematology/Oncology 05/03/21 Crew Team Member Relationship Specialty Start Date End Date Arsalan Ocampo MD [address] [place] [address] PCP - General Family Practice 12/08/20 Natalya Dorsey RN [address] [place] [address] Specialty Creative Guru Hematology/Oncology 05/03/21 Crew Team Member Relationship Specialty Start Date End Date Arsalan Ocampo MD [address] [facility] [place] [address] PCP - General Family Practice 12/08/20 Natalya Dorsey RN [address] [place] [address] Specialty Creative Guru Hematology/Oncology 05/03/21 Crew Team Member Relationship Specialty Start Date End Date Arsalan Ocampo MD [address] [facility] [place] [address] PCP - General Family Practice 12/08/20 Natalya Dorsey RN [address] [place] [address] Specialty Creative Guru Hematology/Oncology 05/03/21 Crew Team Member Relationship Specialty Start Date End Date Arsalan Ocampo MD [address] [facility] [place] [address] PCP - General Family Practice 12/08/20 Natalya Dorsey RN [address] [place] [address] Specialty Creative Guru Hematology/Oncology 05/03/21 Crew Team Member Relationship Specialty Start Date End Date Arsalan Ocampo MD [address] [place] [address] PCP - General Family Practice 12/08/20 Natalya Dorsey RN [address] [place] [address] Specialty Creative Guru Hematology/Oncology 05/03/21 Crew Team Member Relationship Specialty Start Date End Date Arsalan Ocampo MD [address] [place] [address] PCP - General Family Medicine 12/08/20 Natalya Dorsey RN [address] [place] [address] Specialty Creative Guru Hematology/Oncology 05/03/21 Crew Team Member Relationship Specialty Start Date End Date Arsalan Ocampo MD [address] [facility] [place] [address] PCP - General Family Medicine 12/08/20 Natalya Dorsey RN [address] [place] [address] Specialty Creative Guru Hematology/Oncology 05/03/21 Crew Team Member Relationship Specialty Start Date End Date Arsalan Ocampo MD [address] [facility] [address] PCP - General Family Medicine 12/08/20 Natalya Dorsey RN [address] [place] [address] Specialty Creative Guru Hematology/Oncology 05/03/21 Crew Team Member Relationship Specialty Start Date End Date Arsalan Ocampo MD [address] [facility] [address] PCP - General Family Medicine 12/08/20 Natalya Dorsey RN [address] [place] [address] Specialty Creative Guru Hematology/Oncology 05/03/21 Crew Team Member Relationship Specialty Start Date End Date Arsalan Ocampo MD [address] [facility] [address] PCP - General Family Medicine 12/08/20 Natalya Dorsey RN [address] [place] [address] Specialty Creative Guru Hematology/Oncology 05/03/21 Crew Team Member Relationship Specialty Start Date End Date Arsalan Ocampo MD [address] [facility] [place] [address] PCP - General Family Medicine 12/08/20 Natalya Dorsey RN [address] [place] [address] Specialty Creative Guru Hematology/Oncology 05/03/21 Crew Team Member Relationship Specialty Start Date End Date Arsalan Ocampo MD [address] [facility] [address] PCP - General Family Medicine 12/08/20 Natalya Dorsey, ERIN [address] [place] [address] Specialty Creative Guru Hematology/Oncology 05/03/21 Crew Team Member Relationship Specialty Start Date End Date Arsalan Ocampo MD [address] [facility] [address] PCP - General Family Medicine 12/08/20 Natalya Dorsey, ERIN [address] [place] [address] Specialty Creative Guru Hematology/Oncology 05/03/21 Crew Team Member Relationship Specialty Start Date End Date Arsalan Ocampo MD [address] [facility] [address] PCP - General Family Medicine 12/08/20 Natalya Dorsey, ERIN [address] [place] [address] Specialty Creative Guru Hematology/Oncology 05/03/21 Crew Team Member Relationship Specialty Start Date End Date Arsalan Ocampo MD [address] [place] [address] PCP - General Family Medicine 12/08/20 Natalya Dorsey RN [address] [place] [address] Specialty Creative Guru Hematology/Oncology 05/03/21 Crew Team Member Relationship Specialty Start Date End Date Arsalan Ocampo MD [address] [facility] [place] [address] PCP - General Family Medicine 12/08/20 Natalya Dorsey RN [address] [place] [address] Specialty Creative Guru Hematology/Oncology 05/03/21 Crew Team Member Relationship Specialty Start Date End Date Arsalan Ocampo MD [address] [facility] [address] PCP - General Family Medicine 12/08/20 Natalya Dorsey RN [address] [place] [address] Specialty Creative Guru Hematology/Oncology 05/03/21 Crew Team Member Relationship Specialty Start Date End Date Arsalan Ocampo MD [address] [place] [address] PCP - General Family Medicine 12/08/20 Natalya Dorsey RN [address] [place] [address] Specialty Creative Guru Hematology/Oncology 05/03/21 Crew Team Member Relationship Specialty Start Date End Date Arsalan Ocampo MD [address] [facility] [address] PCP - General Family Medicine 12/08/20 Natalya Dorsey RN [address] [place] [address] Specialty Creative Guru Hematology/Oncology 05/03/21 Crew Team Member Relationship Specialty Start Date End Date Arsalan Ocampo MD [address] [facility] [place] [address] PCP - General Family Medicine 12/08/20 Natalya Dorsey RN [address] [address] Specialty Creative Guru Hematology/Oncology 05/03/21 Crew Team Member Relationship Specialty Start Date End Date Arsalan Ocampo MD [address] [place] [address] PCP - General Family Medicine 12/08/20 Natalya Dorsey RN [address] [address] Specialty Creative Guru Hematology/Oncology 05/03/21 Crew Team Member Relationship Specialty Start Date End Date Arsalan Ocampo MD [address] [facility] [address] PCP - General Family Medicine 12/08/20 Natalya Dorsey RN [address] [facility] [place] [address] Specialty Creative Guru Hematology/Oncology 05/03/21 Crew Team Member Relationship Specialty Start Date End Date Arsalan Ocampo MD [address] [facility] [address] PCP - General Family Medicine 12/08/20 Natalya Dorsey RN [address] [place] [address] Specialty Creative Guru Hematology/Oncology 05/03/21 Crew Team Member Relationship Specialty Start Date End Date Arsalan Ocampo MD [address] [place] [address] PCP - General Family Medicine 12/08/20 Natalya Dorsey RN [address] [place] [address] Specialty Creative Guru Hematology/Oncology 05/03/21 Crew Team Member Relationship Specialty Start Date End Date Arsalan Ocampo MD [address] [place] [address] PCP - General Family Medicine 12/08/20 Natalya Dorsey RN [address] [place] [address] Specialty Creative Guru Hematology/Oncology 05/03/21 Crew Team Member Relationship Specialty Start Date End Date Arsalan Ocampo MD [address] [place] [address] PCP - General Family Medicine 12/08/20 Natalya Dorsey RN [address] [place] [address] Specialty Creative Guru Hematology/Oncology 05/03/21 Crew Team Member Relationship Specialty Start Date End Date Arsalan Ocampo MD [address] [place] [address] PCP - General Family Medicine 12/08/20 Natalya Dorsey RN [address] [place] [address] Specialty Creative Guru Hematology/Oncology 05/03/21 Crew Team Member Relationship Specialty Start Date End Date Arsalan Ocampo MD [address] [facility] [place] [address] PCP - General Family Medicine 12/08/20 Natalya Dorsey RN [address] [address] Specialty Creative Guru Hematology/Oncology 05/03/21 Crew Team Member Relationship Specialty Start Date End Date Arsalan Ocampo MD [address] [facility] [place] [address] PCP - General Family Medicine 12/08/20 Natalya oDrsey, RN [address] [place] [address] Specialty Creative Guru Hematology/Oncology 05/03/21 Crew Team Member Relationship Specialty Start Date End Date Arsalan Ocampo MD [address] [facility] [place] [address] PCP - General Family Medicine 12/08/20 Natalya Dorsey RN [address] [facility] [place] [address] Specialty Creative Guru Hematology/Oncology 05/03/21 Crew Team Member Relationship Specialty Start Date End Date Arsalan Ocampo MD [address] [facility] [place] [address] PCP - General Family Medicine 12/08/20 Natalya Dorsey RN [address] [facility] [place] [address] Specialty Creative Guru Hematology/Oncology 05/03/21 Crew Team Member Relationship Specialty Start Date End Date Arsalan Ocampo MD [address] [facility] [address] PCP - General Family Medicine 12/08/20 Natalya Dorsey RN [address] [place] [address] Specialty Creative Guru Hematology/Oncology 05/03/21 Dereje Herring MD [address] [place] [address] Hematology/Oncology 03/13/23 Crew Team Member Relationship Specialty Start Date End Date Arsalan Ocampo MD [address] [place] [address] PCP - General Family Medicine 12/08/20 Natalya Dorsey RN [address] [place] [address] Specialty Creative Guru Hematology/Oncology 05/03/21 Dereje Herring MD [address] [place] [address] Hematology/Oncology 03/13/23 Crew Team Member Relationship Specialty Start Date End Date Arsalan Ocampo MD [address] [place] [address] PCP - General Family Medicine 12/08/20 Natalya Dorsey RN [address] [place] [address] Specialty Creative Guru Hematology/Oncology 05/03/21 Dereje Herring MD [address] [place] [address] Hematology/Oncology 03/13/23 Crew Team Member Relationship Specialty Start Date End Date rAsalan Ocampo MD [address] [place] [address] PCP - General Family Medicine 12/08/20 Natalya oDrsey, RN [address] [place] [address] Specialty Creative Guru Hematology/Oncology 05/03/21 Dereje Herring MD [address] [place] [address] Hematology/Oncology 03/13/23 Crew Team Member Relationship Specialty Start Date End Date Arsalan Ocampo MD [address] [place] [address] PCP - General Family Medicine 12/08/20 Natalya Dorsey, ERIN [address] [place] [address] Specialty Creative Guru Hematology/Oncology 05/03/21 Dereje Herring MD [address] [place] [address] Hematology/Oncology 03/13/23 Crew Team Member Relationship Specialty Start Date End Date Arsalan Ocampo MD [address] [place] [address] PCP - General Family Medicine 12/08/20 Natalya Dorsey, ERIN [address] [place] [address] Specialty Creative Guru Hematology/Oncology 05/03/21 Dereje Herring MD [address] [place] [address] Hematology/Oncology 03/13/23 Crew Team Member Relationship Specialty Start Date End Date Arsalan Ocampo MD [address] [place] [address] PCP - General Family Medicine 12/08/20 Natalya Dorsey, ERIN [address] [address] Specialty Creative Guru Hematology/Oncology 05/03/21 Dereje Herring MD [address] [place] [address] Hematology/Oncology 03/13/23 Crew Team Member Relationship Specialty Start Date End Date Arsalan Ocampo MD [address] [place] [address] PCP - General Family Medicine 12/08/20 Natalya Dorsey RN [address] [place] [address] Specialty Creative Guru Hematology/Oncology 05/03/21 Dereje Herring MD [address] [place] [address] Hematology/Oncology 03/13/23 Crew Team Member Relationship Specialty Start Date End Date Arsalan Ocampo MD [address] [place] [address] PCP - General Family Medicine 12/08/20 Natalya Dorsey, ERIN [address] [place] [address] Specialty Creative Guru Hematology/Oncology 05/03/21 Dereje Herring MD [address] [place] [address] Hematology/Oncology 03/13/23 Crew Team Member Relationship Specialty Start Date End Date Arsalan Ocampo MD [address] [place] [address] PCP - General Family Medicine 12/08/20 Natalya Dorsey, ERIN [address] [place] [address] Specialty Creative Guru Hematology/Oncology 05/03/21 Dereje Herring MD [address] [place] [address] Hematology/Oncology 03/13/23 Crew Team Member Relationship Specialty Start Date End Date Arsalan Ocampo MD [address] [place] [address] PCP - General Family Medicine 12/08/20 Natalya Dorsey RN [address] [place] [address] Specialty Creative Guru Hematology/Oncology 05/03/21 Dereje Herring MD [address] [place] [address] Hematology/Oncology 03/13/23 Crew Team Member Relationship Specialty Start Date End Date Arsalan Ocampo MD [address] [place] [address] PCP - General Family Medicine 12/08/20 Natalya Dorsey RN [address] [place] [address] Specialty Creative Guru Hematology/Oncology 05/03/21 Dereje Herring MD [address] [place] [address] Hematology/Oncology 03/13/23 Crew Team Member Relationship Specialty Start Date End Date Arsalan Ocampo MD [address] [place] [address] PCP - General Family Medicine 12/08/20 Natalya Dorsey, ERIN [address] [place] [address] Specialty Creative Guru Hematology/Oncology 05/03/21 Dereje Herring MD [address] [place] [address] Hematology/Oncology 03/13/23 Crew Team Member Relationship Specialty Start Date End Date Arsalan Ocampo MD [address] [place] [address] PCP - General Family Medicine 12/08/20 Natalya Dorsey, ERIN [address] [address] Specialty Creative Guru Hematology/Oncology 05/03/21 Dereje Herring MD [address] [address] Hematology/Oncology 03/13/23 Crew Team Member Relationship Specialty Start Date End Date Arsalan Ocampo MD [address] [place] [address] PCP - General Family Medicine 12/08/20 Natalya Dorsey RN [address] [place] [address] Specialty Creative Guru Hematology/Oncology 05/03/21 Dereje Herring MD [address] [place] [address] Hematology/Oncology 03/13/23 Crew Team Member Relationship Specialty Start Date End Date Arsalan Ocampo MD [address] [place] [address] PCP - General Family Medicine 12/08/20 Natalya Dorsey RN [address] [place] [address] Specialty Creative Guru Hematology/Oncology 05/03/21 Dereje Herring MD [address] [place] [address] Hematology/Oncology 03/13/23 Crew Team Member Relationship Specialty Start Date End Date Arsalan Ocampo MD [address] [place] [address] PCP - General Family Medicine 12/08/20 Natalya Dorsey RN [address] [place] [address] Specialty Creative Guru Hematology/Oncology 05/03/21 Dereje Herring MD [address] [place] [address] Hematology/Oncology 03/13/23 Crew Team Member Relationship Specialty Start Date End Date Arsalan Ocampo MD [address] [place] [address] PCP - General Family Medicine 12/08/20 Natalya Dorsey RN [address] [place] [address] Specialty Creative Guru Hematology/Oncology 05/03/21 Dereje Herring MD [address] [place] [address] Hematology/Oncology 03/13/23 Crew Team Member Relationship Specialty Start Date End Date Arsalan Ocampo MD [address] [place] [address] PCP - General Family Medicine 12/08/20 Natalya Dorsey RN [address] [place] [address] Specialty Creative Guru Hematology/Oncology 05/03/21 Dereje Herring MD [address] [place] [address] Hematology/Oncology 03/13/23 Crew Team Member Relationship Specialty Start Date End Date Arsalan Ocampo MD [address] [place] [address] PCP - General Family Medicine 12/08/20 Natalya Dorsey RN [address] [place] [address] Specialty Creative Guru Hematology/Oncology 05/03/21 Dereje Herring MD [address] [address] Hematology/Oncology 03/13/23 Crew Team Member Relationship Specialty Start Date End Date Arsalan Ocampo MD [address] [place] [address] PCP - General Family Medicine 12/08/20 Natalya Dorsey, RN [address] [place] [address] Specialty Creative Guru Hematology/Oncology 05/03/21 Dereje Herring MD [address] [place] [address] Hematology/Oncology 03/13/23 Crew Team Member Relationship Specialty Start Date End Date Arsalan Ocampo MD [address] [place] [address] PCP - General Family Medicine 12/08/20 Natalya Dorsey RN [address] [place] [address] Specialty Creative Guru Hematology/Oncology 05/03/21 Dereje Herring MD [address] [place] [address] Hematology/Oncology 03/13/23 Crew Team Member Relationship Specialty Start Date End Date Arsalan Ocampo MD [address] [place] [address] PCP - General Family Medicine 12/08/20 Natalya Dorsey, ERIN [address] [place] [address] Specialty Creative Guru Hematology/Oncology 05/03/21 Dereje Herring MD [address] [place] [address] Hematology/Oncology 03/13/23 Crew Team Member Relationship Specialty Start Date End Date Arsalan Ocampo MD [address] [place] [address] PCP - General Family Medicine 12/08/20 Natalya Dorsey, ERIN [address] [place] [address] Specialty Creative Guru Hematology/Oncology 05/03/21 Dereje Herring MD [address] [place] [address] Hematology/Oncology 03/13/23 Crew Team Member Relationship Specialty Start Date End Date Arsalan Ocampo MD [address] [facility] [place] [address] PCP - General Family Medicine 12/08/20 Natalya Dorsey RN [address] [place] [address] Specialty Creative Guru Hematology/Oncology 05/03/21 Dereje Herring MD [address] [place] [address] Hematology/Oncology 03/13/23 Crew Team Member Relationship Specialty Start Date End Date Arsalan Ocampo MD [address] [place] [address] PCP - General Family Medicine 12/08/20 Natalya Dorsey, RN [address] [place] [address] Specialty Creative Guru Hematology/Oncology 05/03/21 Dereje Herring MD [address] [place] [address] Hematology/Oncology 03/13/23 Crew Team Member Relationship Specialty Start Date End Date Arsalan Ocampo MD [address] [place] [address] PCP - General Family Medicine 12/08/20 Natalya Dorsey, ERIN [address] [place] [address] Specialty Creative Guru Hematology/Oncology 05/03/21 Dereje Herring MD [address] [place] [address] Hematology/Oncology 03/13/23 Crew Team Member Relationship Specialty Start Date End Date Arsalan Ocampo MD [address] [place] [address] PCP - General Family Medicine 12/08/20 Natalya Dorsey RN [address] [place] [address] Specialty Creative Guru Hematology/Oncology 05/03/21 Dereje Herring MD [address] [place] [address] Hematology/Oncology 03/13/23 Crew Team Member Relationship Specialty Start Date End Date Arsalan Ocampo MD [address] [place] [address] PCP - General Family Medicine 12/08/20 Natalya Dorsey RN [address] [place] [address] Specialty Creative Guru Hematology/Oncology 05/03/21 Dereje Herring MD [address] [place] [address] Hematology/Oncology 03/13/23 Crew Team Member Relationship Specialty Start Date End Date Arsalan Ocampo MD [address] [place] [address] PCP - General Family Medicine 12/08/20 Natalya Dorsey, ERIN [address] [place] [address] Specialty Creative Guru Hematology/Oncology 05/03/21 Dereje Herring MD [address] [place] [address] Hematology/Oncology 03/13/23 Crew Team Member Relationship Specialty Start Date End Date Arsalan Ocampo MD [address] [place] [address] PCP - General Family Medicine 12/08/20 Natalya Dorsey RN [address] [place] [address] Specialty Creative Guru Hematology/Oncology 05/03/21 Dereje Herring MD [address] [address] Hematology/Oncology 03/13/23 Crew Team Member Relationship Specialty Start Date End Date Arsalan Ocampo MD [address] [place] [address] PCP - General Family Medicine 12/08/20 Natalya DorseyERIN [address] [place] [address] Specialty Creative Guru Hematology/Oncology 05/03/21 Dereje Herring MD [address] [place] [address] Hematology/Oncology 03/13/23 Crew Team Member Relationship Specialty Start Date End Date Arsalan Ocampo MD [address] [place] [address] PCP - General Family Medicine 12/08/20 Natalya Dorsey RN [address] [place] [address] Specialty Creative Guru Hematology/Oncology 05/03/21 Dereje Herring MD [address] [place] [address] Hematology/Oncology 03/13/23 Crew Team Member Relationship Specialty Start Date End Date Arsalan Ocampo MD [address] [place] [address] PCP - General Family Medicine 12/08/20 Natalya Dorsey RN [address] [place] [address] Specialty Creative Guru Hematology/Oncology 05/03/21 Dereje Herring MD [address] [place] [address] Hematology/Oncology 03/13/23 Crew Team Member Relationship Specialty Start Date End Date Arsalan Ocampo MD [address] [place] [address] PCP - General Family Medicine 12/08/20 Natalya Dorsey, ERIN [address] [place] [address] Specialty Creative Guru Hematology/Oncology 05/03/21 Dereje Herring MD [address] [place] [address] Hematology/Oncology 03/13/23 Crew Team Member Relationship Specialty Start Date End Date Arsalan Ocampo MD [address] [place] [address] PCP - General Family Medicine 12/08/20 Natalya Dorsey RN [address] [place] [address] Specialty Creative Guru Hematology/Oncology 05/03/21 Dereje Herring MD [address] [place] [address] Hematology/Oncology 03/13/23 Crew Team Member Relationship Specialty Start Date End Date Arsalan Ocampo MD [address] [place] [address] PCP - General Family Medicine 12/08/20 Natalya Dorsey RN [address] [place] [address] Specialty Creative Guru Hematology/Oncology 05/03/21 Dereje Herring MD [address] [place] [address] Hematology/Oncology 03/13/23 Crew Team Member Relationship Specialty Start Date End Date Arsalan Ocampo MD [address] [place] [address] PCP - General Family Medicine 12/08/20 Natalya Dorsey, ERIN [address] [place] [address] Specialty Creative Guru Hematology/Oncology 05/03/21 Dereje Herring MD [address] [place] [address] Hematology/Oncology 03/13/23 PodlogarCatherine APRN.PROGRAMMER BUSINESS [address] [place] [address] [employer] Family Medicine 03/13/24 Crew Team Member Relationship Specialty Start Date End Date Arsalan Ocampo MD [address] [place] [address] PCP - General Family Medicine 12/08/20 Natalya Dorsey RN [address] [place] [address] Specialty Creative Guru Hematology/Oncology 05/03/21 Dereje Herring MD [address] [place] [address] Hematology/Oncology 03/13/23 PodlogarCatherine, SENIOR PRODUCER.PROGRAMMER BUSINESS [address] [place] [address] [employer] Family Medicine 03/13/24 Crew Team Member Relationship Specialty Start Date End Date Arsalan Ocampo MD [address] [place] [address] PCP - General Family Medicine 12/08/20 Natalya Dorsey RN [address] [place] [address] Specialty Creative Guru Hematology/Oncology 05/03/21 Dereje Herring MD [address] [place] [address] Hematology/Oncology 03/13/23 PodlogarCatherine SENIOR PRODUCER.PROGRAMMER BUSINESS [address] [place] [address] [employer] Family Medicine 03/13/24 Crew Team Member Relationship Specialty Start Date End Date Arsalan Ocampo MD [address] [place] [address] PCP - General Family Medicine 12/08/20 Natalya Dorsey RN [address] [place] [address] Specialty Creative Guru Hematology/Oncology 05/03/21 Dereje Herring MD [address] [place] [address] Hematology/Oncology 03/13/23 Podlogar, Catherine, SENIOR PRODUCER.PROGRAMMER BUSINESS [address] [place] [address] [employer] Family Medicine 03/13/24 Crew Team Member Relationship Specialty Start Date End Date Arsalan Ocampo MD [address] [place] [address] PCP - General Family Medicine 12/08/20 Natalya Dorsey RN [address] [place] [address] Specialty Creative Guru Hematology/Oncology 05/03/21 Dereje Herring MD [address] [place] [address] Hematology/Oncology 03/13/23 Crew Team Member Relationship Specialty Start Date End Date Arsalan Ocampo MD [address] [place] [address] PCP - General Family Medicine 12/08/20 Natalya Dorsey RN [address] [place] [address] Specialty Creative Guru Hematology/Oncology 05/03/21 Dereje Herring MD [address] [place] [address] Hematology/Oncology 03/13/23 PodlogarCatherine APRN.CNP [address] [place] [address] [employer] Family Medicine 03/13/24 Crew Team Member Relationship Specialty Start Date End Date Arsalan Ocampo MD [address] [place] [address] PCP - General Family Medicine 12/08/20 Natalya Dorsey RN [address] [place] [address] Specialty Creative Guru Hematology/Oncology 05/03/21 Dereje Herring MD [address] [place] [address] Hematology/Oncology 03/13/23 Podlogar, DORIS Alexander.PROGRAMMER BUSINESS [address] [place] [address] [facility] [employer] [facility] 03/13/24 Crew Team Member Relationship Specialty Start Date End Date Arsalan Ocampo MD [address] [place] [address] PCP - General Family Medicine 12/08/20 Natalya Dorsey, ERIN [address] [place] [address] Specialty Creative Guru Hematology/Oncology 05/03/21 Dereje Herring MD [address] [place] [address] Hematology/Oncology 03/13/23 Podlogar, Catherine, DORIS.PROGRAMMER BUSINESS [address] [place] [address] [facility] 03/13/24 Crew Team Member Relationship Specialty Start Date End Date Arsalan Ocampo MD [address] [place] [address] PCP - General Family Medicine 12/08/20 Natalya Dorsey, ERIN [address] [place] [address] Specialty Creative Guru Hematology/Oncology 05/03/21 Dereje Herring MD [address] [place] [address] Hematology/Oncology 03/13/23 Podlogar, DORIS Alexander.PROGRAMMER BUSINESS [address] [place] [address] [employer] Family Medicine 03/13/24 Crew Team Member Relationship Specialty Start Date End Date Arsalan Ocampo MD [address] [place] [address] PCP - General Family Medicine 12/08/20 Natalya Dorsey RN [address] [place] [address] Specialty Creative Guru Hematology/Oncology 05/03/21 Dereje Herring MD [address] [place] [address] Hematology/Oncology 03/13/23 PodlogarCatherine APRN.PROGRAMMER BUSINESS [address] [place] [address] [employer] Family Medicine 03/13/24 Crew Team Member Relationship Specialty Start Date End Date Arsalan Ocampo MD [address] [place] [address] PCP - General Family Medicine 12/08/20 Natalya Dorsey RN [address] [place] [address] Specialty Creative Guru Hematology/Oncology 05/03/21 Dereje Herring MD [address] [place] [address] Hematology/Oncology 03/13/23 PodlogarCatherine APRN.PROGRAMMER BUSINESS [address] [place] [address] [employer] Family Medicine 03/13/24 Crew Team Member Relationship Specialty Start Date End Date Arsalan Ocampo MD [address] [place] [address] PCP - General Family Medicine 12/08/20 Natalya Dorsey, ERIN [address] [place] [address] Specialty Creative Guru Hematology/Oncology 05/03/21 Dereje Herring MD [address] [place] [address] Hematology/Oncology 03/13/23 PodlogarCatherine APRN.PROGRAMMER BUSINESS [address] [place] [address] [employer] Family Medicine 03/13/24 Crew Team Member Relationship Specialty Start Date End Date Arsalan Ocampo MD [address] [place] [address] PCP - General Family Medicine 12/08/20 Natalya Dorsey, ERIN [address] [place] [address] Specialty Creative Guru Hematology/Oncology 05/03/21 Dereje Herring MD [address] [place] [address] Hematology/Oncology 03/13/23 PodlogarCatherine APRN.PROGRAMMER BUSINESS [address] [place] [address] [employer] Family Medicine 03/13/24 Crew Team Member Relationship Specialty Start Date End Date Arsalan Ocampo MD [address] [place] [address] PCP - General Family Medicine 12/08/20 Natalya Dorsey RN [address] [place] [address] Specialty Creative Guru Hematology/Oncology 05/03/21 Dereje Herring MD [address] [place] [address] Hematology/Oncology 03/13/23 PodlogarCatherine, SENIOR PRODUCER.PROGRAMMER BUSINESS [address] [place] [address] [employer] Family Medicine 03/13/24 Crew Team Member Relationship Specialty Start Date End Date Arsalan Ocampo MD [address] [place] [address] PCP - General Family Medicine 12/08/20 Natalya Dorsey RN [address] [place] [address] Specialty Creative Guru Hematology/Oncology 05/03/21 Dereje Herring MD [address] [place] [address] Hematology/Oncology 03/13/23 Podlogar, Catherine, SENIOR PRODUCER.PROGRAMMER BUSINESS [address] [place] [address] [employer] Family Medicine 03/13/24 Crew Team Member Relationship Specialty Start Date End Date Arsalan Ocampo MD [address] [place] [address] PCP - General Family Medicine 12/08/20 Natalya Dorsey RN [address] [place] [address] Specialty Creative Guru Hematology/Oncology 05/03/21 Dereje Herring MD [address] [place] [address] Hematology/Oncology 03/13/23 PodlogarCatherine APRN.PROGRAMMER BUSINESS [address] [place] [address] [employer] Family Medicine 03/13/24 Suresh Hodges MD [address] [place] [address] Radiation Oncology 06/18/24 Yasmine Marrero APRN.PROGRAMMER BUSINESS [address] [place] [place] [address] [employer] Family Medicine 06/18/24 Crew Team Member Relationship Specialty Start Date End Date Arsalan Ocampo MD [address] [place] [address] PCP - General Family Medicine 12/08/20 Natalya Dorsey RN [address] [place] [address] Specialty Creative Guru Hematology/Oncology 05/03/21 Dereje Herring MD [address] [place] [address] Hematology/Oncology 03/13/23 Podlogar, DORIS Alexander.PROGRAMMER BUSINESS [address] [facility] [place] [address] [employer] Family Medicine 03/13/24 Suresh Hodges MD [address] [place] [address] Radiation Oncology 06/18/24 Yasmine Marrero APRN.PROGRAMMER BUSINESS [address] [place] [address] [facility] 06/28/24 Crew Team Member Relationship Specialty Start Date End Date Arsalan Ocampo MD [address] [facility] [place] [address] PCP - General Family Medicine 12/08/20 Natalya Dorsey, RN [address] [place] [address] Specialty Creative Guru Hematology/Oncology 05/03/21 Dereje Herring MD [address] [place] [address] Hematology/Oncology 03/13/23 PodlogCatherine verduzco APRN.PROGRAMMER BUSINESS [address] [place] [address] [employer] Family Medicine 03/13/24 Suresh Hodges MD [address] [place] [address] Radiation Oncology 06/18/24 Yasmine Marrero SENIOR PRODUCER.PROGRAMMER BUSINESS [address] [place] [address] [facility] 06/28/24 Crew Team Member Relationship Specialty Start Date End Date Arsalan Ocampo MD [address] [facility] [place] [address] PCP - General Family Medicine 12/08/20 Natalya Dorsey, ERIN [address] [place] [address] Specialty Creative Guru Hematology/Oncology 05/03/21 Dereje Herring MD [address] [place] [address] Hematology/Oncology 03/13/23 ToneylogCatherine verduzco APRN.PROGRAMMER BUSINESS [address] [facility] [place] [address] [employer] Family Medicine 03/13/24 Suresh Hodges MD [address] [place] [address] Radiation Oncology 06/18/24 Yasmine Marrero APRN.PROGRAMMER BUSINESS [address] [facility] [place] [address] [facility] 06/28/24 Crew Team Member Relationship Specialty Start Date End Date Arsalan Ocampo MD [address] [facility] [place] [address] PCP - General Family Medicine 12/08/20 Natalya Dorsey RN [address] [place] [address] Specialty Creative Guru Hematology/Oncology 05/03/21 Dereje Herring MD [address] [place] [address] Hematology/Oncology 03/13/23 PodlogarCatherine APRN.PROGRAMMER BUSINESS [address] [place] [address] [facility] 03/13/24 Suresh Hodges MD [address] [place] [address] Radiation Oncology 06/18/24 Yasmine Marrero APRN.PROGRAMMER BUSINESS [address] [facility] [place] [address] [facility] 06/28/24 Crew Team Member Relationship Specialty Start Date End Date Arsalan Ocampo MD [address] [place] [address] PCP - General Family Medicine 12/08/20 Natalya Dorsey, RN [address] [place] [address] Specialty Creative Guru Hematology/Oncology 05/03/21 Dereje Herring MD [address] [place] [address] Hematology/Oncology 03/13/23 PodlogarCatherine APRN.PROGRAMMER BUSINESS [address] [place] [address] [facility] 03/13/24 Suresh Hodges MD [address] [place] [address] Radiation Oncology 06/18/24 Yasmine Marrero APRN.PROGRAMMER BUSINESS [address] [place] [address] [employer] Family Medicine 06/28/24 Crew Team Member Relationship Specialty Start Date End Date Arsalan Ocampo MD [address] [facility] [place] [address] PCP - General Family Medicine 12/08/20 Natalya Dorsey, ERIN [address] [place] [address] Specialty Creative Guru Hematology/Oncology 05/03/21 Dereje Herring MD [address] [place] [address] Hematology/Oncology 03/13/23 Catherine Peraza APRN.PROGRAMMER BUSINESS [address] [facility] [place] [address] [employer] Family Medicine 03/13/24 Suresh Hodges MD [address] [place] [address] Radiation Oncology 06/18/24 Yasmine Marrero APRN.PROGRAMMER BUSINESS [address] [facility] [place] [address] [employer] Teacher Family [facility] 06/28/24 Crew Team Member Relationship Specialty Start Date End Date Arsalan Ocampo MD [address] [facility] [place] [address] PCP - General Family Medicine 12/08/20 Natalya Dorsey, RN [address] [place] [address] Specialty Creative Guru Hematology/Oncology 05/03/21 Dereje Herring MD [address] [place] [address] Hematology/Oncology 03/13/23 PodlogarCatherine APRN.PROGRAMMER BUSINESS [address] [place] [address] [employer] Family Medicine 03/13/24 Suresh Hodges MD [address] [place] [address] Radiation Oncology 06/18/24 Crew Team Member Relationship Specialty Start Date End Date Arsalan Ocampo MD [address] [place] [address] PCP - General Family Medicine 12/08/20 Natalya Dorsey RN [address] [place] [address] Specialty Creative Guru Hematology/Oncology 05/03/21 Dereje Herring MD [address] [place] [address] Hematology/Oncology 03/13/23 PodlogarCatherine APRN.PROGRAMMER BUSINESS [address] [place] [address] [employer] Family [facility] 03/13/24 Suresh Hodges MD [address] [place] [address] Radiation Oncology 06/18/24 Inactive Administered Medications - [...] BE BASED ON THE PRIMARY CLINICAL RECORDS. [employer] provides no warranty or guarantee of the accuracy or completeness of information in this document.
[2024-09-18 16:30] LABS: Troponin T High Sens 2 HR 44 ng/L (<=22)
[2024-09-18] MEDS: Vancomycin HCl 1,750 MG in 0.9% Normal Saline (500mL Bag) 500 ML 250 MG IV (16:36)
[2024-09-18] MEDS: 0.9% Normal Saline (1000mL) 1,000 ML 125 ML IV (17:10)
--- NOTE | 2024-09-18 17:19 | PCM.RX.CS ---
Consult Antibiotic Management Pharmacy has been consulted to manage selected antibiotic: Vancomycin Type of Intervention Type of Consult: New start Suspected Infection Suspected Infection: Sepsis Labs Labs: Sodium 137 mmol/L (133-145) 09/18/24 12:40 Potassium 4.1 mmol/L (3.3-5.1) 09/18/24 12:40 Chloride 102 mmol/L (98-108) 09/18/24 12:40 Carbon Dioxide 20.3 mmol/L (21.0-32.0) L 09/18/24 12:40 Anion Gap 14 (5-15) 09/18/24 12:40 BUN 43 mg/dL (4-19) H 09/18/24 12:40 Creatinine 2.13 mg/dL (0.70-1.20) H 09/18/24 12:40 Est GFR (MDRD) Non-Af 32 (>60) L 09/18/24 12:40 BUN/Creatinine Ratio 20.1 RATIO (10-20) H 09/18/24 12:40 Glucose 75 mg/dL (70-99) 09/18/24 12:40 Microbiology Microbiology: Microbiology 09/18/24 13:45 Mucosa - Nose SARS-CoV-2, Influenza & RSV (PCR) - Final Dosing Weight Weight used for dosin kg Estimated Creatinine Clearance Estimated Creatinine Clearance: 30ml/min Goal Trough Goal Trough: 15-20 mcg/mL Pharmacy Plan for Drug Dosing Pharmacy Plan for Drug Dosing: NEW START IV VANCOMYCIN Consulting Physician: Dr. Nugent Indication: Sepsis Goal Trough: 15-20 SrCr: 2.13 CrCl: 30.4 ml/min Comments: pt received a 1750mg loading dose in the ER on 09/18/24 at 1636 Vancomycin Dose: based on patients weight and renal function recommend an initial dose of 750mg q24h starting 09/19 at 1600. trough prior to the 3rd dose Pending Level: 09/20/24 at 1530 Pharmacy Service will continue to monitor and adjust dosing as required. Follow-Up Labs Follow-Up Labs: Trough: Vancomycin (09/20/24 at 1530)
[2024-09-18 17:24] LABS: Reflex Lactate? Y
[2024-09-18 17:39] LABS: Troponin T High Sens 4 HR 41 ng/L (<=22)
[2024-09-18 17:41] LABS: Lactic Acid 1.2 mmol/L (0.0-2.0)
[2024-09-18] MEDS: Ondansetron 4 MG/2 ML Vial IV (20:14)
[2024-09-18] MEDS: 0.9% Saline Lock 10 ML Syringe IV (20:15)
[2024-09-18] MEDS: Acetaminophen 500 MG Tablet 1000 MG PO (21:16)
[2024-09-18] MEDS: proCHLORPERazine 10 MG/2 ML Vial IV (21:16)
[2024-09-18] MEDS: Piperacil/Tazobactam 3.375 GM in 0.9% Normal Saline (50mL MB+) 50 ML IV (21:16)
[2024-09-18] MEDS: predniSONE 20 MG Tablet 40 MG PO (21:17)
[2024-09-18] MEDS: Heparin Injection (Vial) 5,000 UNIT/ML VIAL 5000 UNIT SC (21:17)
--- NOTE | 2024-09-18 23:32 | PCM.HOSP.N ---
Hospitalist Note Patient persistently hypotensive despite 5 L of IV fluids. Will start midodrine 10 mg 3 times daily and Levophed. Maps have been consistently in the 60-62 range currently. Wean Levophed as able
[2024-09-18] MEDS: Norepinephrine 8 MG in 0.9% Normal Saline (250mL Bag) 242 ML 9.4 MG CONT INF (23:54)
[2024-09-19] VITALS (44 sets, daily range): BP systolic 89–124; BP diastolic 56–93; PULSE 77–108; RESP 12–33; TEMP 36.1–38.2; O2SAT 92–99; BMI 25.0
[2024-09-19] MEDS: TITRATION PARAMETER CHANGE 1 EACH IV (00:53)
[2024-09-19] MEDS: 0.9% Normal Saline (1000mL) 1,000 ML 125 ML IV (00:53)
[2024-09-19] MEDS: 0.9% Normal Saline (250mL Bag) 250 ML 15 ML IV ×2 (00:54→16:46)
[2024-09-19 04:24] LABS: Absolute Neutrophil Count 7.3 X10^3/uL (2.0-7.7); Basophil# 0.01 X10^3/uL; Basophil% 0.1 % (0-1); Hematocrit 26.7 % (40-54); Hemoglobin 7.9 g/dL (13.0-16.5); Mean Corp Hgb Conc 29.6 g/dL (32-36); Mean Corpuscular Hgb 24.2 pg (27.0-32.0); Mean Corpuscular Volume 81.7 fL (80-94); Mean Platelet Vol. 9.2 fl (6.2-12.0); Monocyte# 0.19 X10^3/uL; Monocyte% 2.4 % (0-10); NRBC Flagged by Analyzer 0 % (0-5); Neutrophil # 7.32 X10^3/uL (2.7-7.7); Neutrophil % 91.5 % (47-70); POSITIVE COUNT YES; POSITIVE DIFFERENTIAL YES; POSITIVE MORPHOLOGY YES; Platelet Count 99 K/mm3 (150-450); RBC Distribution Width CV 21.5 % (11.6-14.6); RBC Distribution Width SD 63.8 fl (35.1-43.9); Red Blood Count 3.27 M/mm3 (4.6-6.2)
[2024-09-19 04:47] LABS: Anion Gap 13 (5-15); BUN 32 mg/dL (4-19); BUN/Creat Ratio 23.9 RATIO (10-20); Calcium,Total 7.3 mg/dL (7.6-11.0); Carbon Dioxide 15.1 mmol/L (21.0-32.0); Chloride 111 mmol/L (98-108); Creatinine, Serum 1.32 mg/dL (0.70-1.20); EST Glomerular Filtration Rate 58 (>60); Estimated Creatinine Clearance 46.32 ml/min (50-250); Glucose 112 mg/dL (70-99); Potassium 4.1 mmol/L (3.3-5.1); Sodium Level 139 mmol/L (133-145)
[2024-09-19 05:02] LABS: Differential Indicated SCAN CRITERIA MET
[2024-09-19 05:03] LABS: Anisocytosis 3+; Differential Comment SCANNED; Platelet Estimate SLT DEC (ADEQ)
[2024-09-19 05:04] LABS: Ovalocyte 1+
[2024-09-19 05:05] LABS: Burr Cells 1+; Microcytosis 2+; Tear Drop Cell RARE
[2024-09-19 05:06] LABS: Hypochromasia 2+
[2024-09-19] MEDS: Piperacil/Tazobactam 3.375 GM in 0.9% Normal Saline (50mL MB+) 50 ML IV ×3 (05:20→20:49)
[2024-09-19] MEDS: Heparin Injection (Vial) 5,000 UNIT/ML VIAL 5000 UNIT SC ×3 (05:20→20:48)
--- NOTE | 2024-09-19 07:13 | CT_ITS ---
PROCEDURE: ABDOMEN/PELVIS WITH CONTRAST 09/19/2024 REASON FOR EXAM: SEPSIS WITH UNKNOWN SOURCE. Vomiting, history of prostate cancer. TECHNIQUE: ABDOMEN/PELVIS WITH CONTRAST. Coronal and Sagittal reconstruction series were provided. ORAL CONTRAST TYPE: Gastrografin CONTRAST: Isovue 370 VOLUME: 100 mL One or more dose reduction techniques were used (e.g., Automated exposure control, adjustment of the mA and/or kV according to patient size, use of iterative reconstruction technique. RADIATION DOSE SUMMARY: CTDlvol: 30 mGy DLP: 900 mGycm COMPARISON: CT abdomen pelvis 02/05/2024. FINDINGS: Lung bases: Small bilateral pleural effusions with adjacent atelectasis. The heart is normal in size with coronary artery and aortic valvular calcifications. Liver: Normal in size without suspicious hepatic mass. The major portal veins are patent. No biliary ductal dilation. Gallbladder: Calcified stone within the gallbladder. No gallbladder wall thickening or pericholecystic fluid. Spleen: Normal in size. Pancreas: Mildly atrophic. Adrenals: No adrenal mass. Kidneys: No hydronephrosis or nephrolithiasis. Bladder: Decompressed by indwelling Loza catheter. Reproductive Organs: The prostate is atrophic or surgically absent. Bowel: Oral contrast material opacifies the distal small bowel and large bowel loops. The bowel loops are nondilated. Trace ascites within the lower pelvis (series 2, image 80), slightly improved since prior examination. No pneumoperitoneum. Prior appendectomy. Lymph nodes: No suspicious lymphadenopathy. Vasculature: Severe mixed plaque of the aortoiliac vessels. Bones: Thoracolumbar spondylosis with unchanged leftward curvature of the lower lumbar spine. 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 CT/Abdomen/Pelvis WITH Contrast IMPRESSION: No acute abdominopelvic finding. Reading Location: [id number]
[2024-09-19] MEDS: Midodrine HCl 5 MG Tablet 10 MG PO ×3 (07:45→16:44)
[2024-09-19] MEDS: predniSONE 20 MG Tablet 40 MG PO (07:46)
[2024-09-19] MEDS: 0.9% Saline Lock 10 ML Syringe IV (07:48)
[2024-09-19 10:17] LABS: AST(SGOT) 39 U/L (<=37); Alanine Aminotransfer ALT/SGPT 25 U/L (<=46); Albumin, Serum 2.8 g/dL (3.4-4.8); Alkaline Phosphatase 169 U/L (40-129); Bilirubin, Direct 1.15 mg/dL (0.00-0.30); Globulin 2.4 g/dL (2.2-4.2); Protein, Total 5.2 g/dL (5.9-8.4); Total Bilirubin 1.56 mg/dL (0.00-1.30)
--- NOTE | 2024-09-19 10:30 | PCM.PN.HOSP ---
Subjective Subjective Feels better today, had to be placed on little bit of oxygen overnight because of his resuscitation fluids Objective Data Objective Data Vital Signs: Vital Signs Temp Pulse Resp BP Pulse Ox O2 Del Method O2 Flow Rate 97.3 F L 78 13 99/66 96 Nasal Cannula 2 09/19/24 06:00 09/19/24 07:00 09/19/24 07:00 09/19/24 07:00 09/19/24 07:10 09/19/24 07:56 09/19/24 07:56 FiO2 4 09/18/24 22:00 Oxygen Flow Rate (L/min) 2 Oxygen Delivery Method Nasal Cannula Weight: 156 lb 1.6 oz Body Mass Index (BMI) 25.0 Intake & Output: Intake and Output for Last 24 Hours 09/18/24 09/19/24 09/20/24 03:59 03:59 03:59 Intake Total 5985.19 / 5988.94 60.80 / 60.80 Output Total 475 / 475 800 / 800 Balance 5510.19 / 5513.94 -739.20 / -739.20 Lab / Micro Data 09/19/24 04:10 09/19/24 04:10 Labs: Laboratory Results - last 24 hr 09/18/24 12:40: WBC 4.4, RBC 3.63 L, Hgb 8.6 L, Hct 29.3 L, MCV 80.7, MCH 23.7 L, MCHC 29.4 L, RDW Std Deviation 62.0 H, RDW Coeff of Lydia 21.4 H, Plt Count 119 L, MPV 8.8, Immature Gran % (Auto) 0.200, Neut % (Auto) 87.5 H, Lymph % (Auto) 10.7 L, [place] % (Auto) 0.9, Eos % (Auto) 0.5, Baso % (Auto) 0.2, Absolute Neuts (auto) 3.8, Absolute Lymphs (auto) 0.47 L, Nucleated RBC % 0, Hypochromasia 1+, Anisocytosis 1+, PT 17.7 H, INR 1.4, APTT 36.6 H, Sodium 137, Potassium 4.1, Chloride 102, Carbon Dioxide 20.3 L, Anion Gap 14, BUN 43 H, Creatinine 2.13 H, Estim Creat Clear Calc 30.37 L, Est GFR (MDRD) Non-Af 32 L, BUN/Creatinine Ratio 20.1 H, Glucose 75, Calcium 8.6, Total Bilirubin 1.76 H, AST 28, ALT 20, Alkaline Phosphatase 152 H, Troponin T High Sens 47 H, Total Protein 6.1, Albumin 3.3 L, Globulin 2.8, Albumin/Globulin Ratio 1.2 09/18/24 13:30: Urine Color Yellow, Urine Clarity Clear, Urine pH 6.0, Ur Specific [place] 1.015, Urine Protein 30 H, Urine Glucose (UA) Normal, Urine Ketones 5 H, Urine Occult Blood 10 H, Urine Nitrite Negative, Urine Bilirubin 1 H, Urine Urobilinogen 1 H, Ur Leukocyte Esterase 25 H, Urine RBC 0 SEEN, Urine WBC 5-10 SEEN, Ur Squamous Epith Cells 0 SEEN, Urine Bacteria 0 SEEN, Hyaline Casts 0-5 SEEN, Urine Mucus 0 SEEN 09/18/24 13:45: Lactic Acid 2.3 H* 09/18/24 15:20: Troponin T Hi Sens 2 Hr 44 H 09/18/24 17:00: Lactic Acid 1.2, Troponin T Hi Sens 4Hr 41 H 09/19/24 04:10: WBC 8.0, RBC 3.27 L, Hgb 7.9 L, Hct 26.7 L, MCV 81.7, MCH 24.2 L, MCHC 29.6 L, RDW Std Deviation 63.8 H, RDW Coeff of Lydia 21.5 H, Plt Count 99 L, MPV 9.2, Immature Gran % (Auto) 1.000 H, Neut % (Auto) 91.5 H, Lymph % (Auto) 5.0 L, [place] % (Auto) 2.4, Eos % (Auto) 0.0, Baso % (Auto) 0.1, Absolute Neuts (auto) 7.3, Absolute Lymphs (auto) 0.40 L, Nucleated RBC % 0, Differential Comment SCANNED, Platelet Estimate SLT DEC, Hypochromasia 2+, Anisocytosis 3+, Microcytosis 2+, Tear Drop Cells RARE, Ovalocytes 1+, Alexx Cells 1+, Sodium 139, Potassium 4.1, Chloride 111 H, Carbon Dioxide 15.1 L, Anion Gap 13, BUN 32 H, Creatinine 1.32 H, Estim Creat Clear Calc 46.32 L, Est GFR (MDRD) Non-Af 58 L, BUN/Creatinine Ratio 23.9 H, Glucose 112 H, Calcium 7.3 L, Total Bilirubin 1.56 H, Direct Bilirubin 1.15 H, AST 39 H, ALT 25, Alkaline Phosphatase 169 H, Total Protein 5.2 L, Albumin 2.8 L, Globulin 2.4 Micro: Microbiology 09/18/24 13:30 Urine, Clean Catch Urine Culture - Preliminary Culture exhibits no growth. 09/18/24 13:40 Blood Culture (Wb) - Left Forearm Blood Culture - Preliminary 09/18/24 13:40 Blood Culture (Wb) - Anticubital Left Blood Culture - Preliminary 09/18/24 13:45 Mucosa - Nose SARS-CoV-2, Influenza & RSV (PCR) - Final Radiography Diagnostic Testing: Radiology Impression Chest X-Ray 09/18/24 13:20 IMPRESSION: No acute process detected. Reading [facility] Abdomen/Pelvis CT 09/19/24 07:13 IMPRESSION: No acute abdominopelvic finding. Reading Location: [id number] Rhythm Strip Rhythm Strip: Sinus Rhythm Rate: 90 Ectopy: None Physical Exam Narrative General: Alert, Oriented x3, Cooperative, No apparent distress HEENT: Atraumatic, PERRLA, EOMI, Normocephalic, Mohs surgery on his right scalp dressing intact with fluid collection underneath does not appear infected, no surrounding erythema Oral: Moist Mucosa Neck: Supple, No JVD Lungs: Diminished, Normal air movement, No rhonchi, No wheeze, No rales, mild crackles at the bases Cardiovascular: Regular rate, Regular Rhythm, Normal S1, Normal S2, No murmurs Abdomen: Soft, Non Tender, Non-Distended, No Hepato-splenomegaly Extremities: No edema, Capillary Refill Less than 3 Seconds Skin: No rashes, No breakdown Musculoskeletal: No Tenderness to Palpation of Joints or Extremities Neurological: No focal neurological deficits, moves all extremities Psych/Mental Status: Normal Affect, Appropriate Assessment & Plan Assessment/Plan (1) Sepsis: (2) Acute kidney injury: PLAN: Plan 1. Severe sepsis of unclear source/STACI ? She received 3 L of fluid in the ER with a beautiful response to his blood pressure ? Will decrease IV fluids but will continue as he is getting a CT scan of his abdomen and pelvis ? Will administer broad-spectrum antibiotics with Vanco and Zosyn ? Blood cultures with gram-positive cocci in clusters and gram-negative rods ? Urine culture is no growth ? Will add oral prednisone as he takes 5 mg of prednisone twice daily, as a stress dose ? Will have wound care evaluate his Mohs surgical site while here ?STACI has resolved 2. Metastatic prostate cancer ? He has been having headaches and he did tell his oncologist about it who did not feel that it warranted imaging at this time as they felt that it was related to his Mohs surgery, however if this continues would recommend MRI ? Will stress dose of steroids with prednisone ? Will hold his cancer medications 3. Hyperlipidemia ? Can continue his Lipitor ? 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 Continue with Flomax DVT: Heparin Charges/Coding Visit Charges Inpatient E&M: 47688 Subs Hosp L2
[2024-09-19] MEDS: 0.9% Normal Saline (1000mL) 1,000 ML 100 ML IV ×2 (10:41→20:48)
[2024-09-19] MEDS: Ensure Plus High Protein 120 ML LIQUID PO ×3 (12:25→20:48)
[2024-09-19] MEDS: Vancomycin HCl 750 MG in 0.9% Normal Saline (250mL Bag) 250 ML 250 MG IV (16:45)
--- NOTE | 2024-09-19 18:00 | PCM.RX.CS ---
Consult Antibiotic Management Pharmacy has been consulted to manage selected antibiotic: Vancomycin Type of Intervention Type of Consult: Follow-up Suspected Infection Suspected Infection: Sepsis Labs Labs: Sodium 139 mmol/L (133-145) 09/19/24 04:10 Potassium 4.1 mmol/L (3.3-5.1) 09/19/24 04:10 Chloride 111 mmol/L (98-108) H 09/19/24 04:10 Carbon Dioxide 15.1 mmol/L (21.0-32.0) L 09/19/24 04:10 Anion Gap 13 (5-15) 09/19/24 04:10 BUN 32 mg/dL (4-19) H 09/19/24 04:10 Creatinine 1.32 mg/dL (0.70-1.20) H 09/19/24 04:10 Est GFR (MDRD) Non-Af 58 (>60) L 09/19/24 04:10 BUN/Creatinine Ratio 23.9 RATIO (10-20) H 09/19/24 04:10 Glucose 112 mg/dL (70-99) H 09/19/24 04:10 Microbiology Microbiology: Microbiology 09/19/24 10:45 Stool Enteric Bacteriology - Final 09/19/24 10:45 Stool Clostridioides difficile (PCR) - Final 09/18/24 13:30 Urine, Clean Catch Urine Culture - Preliminary Culture exhibits no growth. 09/18/24 13:40 Blood Culture (Wb) - Left Forearm Blood Culture - Preliminary 09/18/24 13:40 Blood Culture (Wb) - Anticubital Left Blood Culture - Preliminary 09/18/24 13:45 Mucosa - Nose SARS-CoV-2, Influenza & RSV (PCR) - Final Goal Trough Goal Trough: 15-20 mcg/mL Pharmacy Plan for Drug Dosing Pharmacy Plan for Drug Dosing: DAILY ASSESSMENT Current Vancomycin Dose: 750mg q24h (1600) Number of Doses Received: x1 1750mg loading dose, x1 750mg dose Current Renal Function: SrCr 1.32 Renal Function Trend: SrCr decreasing (SrCr was 2.13 upon admission on 09/18/24) Lab/Micro: Any Change in Vanc Plan: due to improving renal function, recommend changing dose from 750mg q24h to 500mg q12h. will change trough as well Pending Level: 09/21/24 at 0430 Pharmacy Service will continue to monitor and adjust dosing as required. Follow-Up Labs Follow-Up Labs: Trough: Vancomycin (09/21/24 at 0430)
[2024-09-20] VITALS (16 sets, daily range): BP systolic 87–116; BP diastolic 58–78; PULSE 70–91; RESP 15–30; TEMP 36.4–37.2; O2SAT 94–99; BMI 26.1
[2024-09-20] MEDS: Vancomycin IV 500 MG/100 ML BAG 100 MG IV ×2 (03:53→16:43)
[2024-09-20 04:14] LABS: Absolute Lymphocyte Count 0.66 X10^3/uL (0.83-4.51); Absolute Neutrophil Count 4.4 X10^3/uL (2.0-7.7); Hematocrit 22.6 % (40-54); Hemoglobin 6.8 g/dL (13.0-16.5); Lymphocyte # 0.66 X10^3/ul (0.83-4.51); Lymphocyte % 12.6 % (19-41); Mean Corp Hgb Conc 30.1 g/dL (32-36); Mean Corpuscular Hgb 24.2 pg (27.0-32.0); Mean Corpuscular Volume 80.4 fL (80-94); Mean Platelet Vol. 8.9 fl (6.2-12.0); Monocyte# 0.19 X10^3/uL; Monocyte% 3.6 % (0-10); NRBC Flagged by Analyzer 0 % (0-5); Neutrophil # 4.35 X10^3/uL (2.7-7.7); Neutrophil % 83.2 % (47-70); POSITIVE COUNT YES; POSITIVE MORPHOLOGY YES; Platelet Count 84 K/mm3 (150-450); RBC Distribution Width CV 21.2 % (11.6-14.6); RBC Distribution Width SD 62.5 fl (35.1-43.9); Red Blood Count 2.81 M/mm3 (4.6-6.2); White Blood Count 5.2 K/mm3 (4.4-11.0)
[2024-09-20 04:51] LABS: ALB/GLOB Ratio 1.1 RATIO (0.9-2.4); AST(SGOT) 30 U/L (<=37); Alanine Aminotransfer ALT/SGPT 20 U/L (<=46); Albumin, Serum 2.7 g/dL (3.4-4.8); Alkaline Phosphatase 135 U/L (40-129); Anion Gap 10 (5-15); BUN 33 mg/dL (4-19); BUN/Creat Ratio 34.9 RATIO (10-20); Chloride 112 mmol/L (98-108); Creatinine, Serum 0.96 mg/dL (0.70-1.20); EST Glomerular Filtration Rate 85 (>60); Estimated Creatinine Clearance 63.69 ml/min (50-250); Globulin 2.5 g/dL (2.2-4.2); Glucose 175 mg/dL (70-99); Potassium 3.9 mmol/L (3.3-5.1); Protein, Total 5.2 g/dL (5.9-8.4); Sodium Level 138 mmol/L (133-145); Total Bilirubin 0.47 mg/dL (0.00-1.30)
[2024-09-20 04:57] LABS: Differential Indicated SCAN CRITERIA MET
[2024-09-20 04:59] LABS: Differential Comment SCANNED
[2024-09-20 05:01] LABS: Anisocytosis 3+
[2024-09-20 05:02] LABS: Burr Cells 1+; Hypochromasia 2+; Microcytosis 2+
[2024-09-20 05:03] LABS: Ovalocyte 1+
[2024-09-20] MEDS: Heparin Injection (Vial) 5,000 UNIT/ML VIAL 5000 UNIT SC ×3 (05:53→20:54)
[2024-09-20] MEDS: Piperacil/Tazobactam 3.375 GM in 0.9% Normal Saline (50mL MB+) 50 ML IV ×3 (05:53→20:52)
[2024-09-20] MEDS: 0.9% Normal Saline (1000mL) 1,000 ML 100 ML IV (05:54)
[2024-09-20] MEDS: 0.9% Saline Lock 10 ML Syringe IV (08:00)
[2024-09-20] MEDS: predniSONE 20 MG Tablet 40 MG PO (08:00)
[2024-09-20] MEDS: Midodrine HCl 5 MG Tablet 10 MG PO ×3 (08:00→16:43)
--- NOTE | 2024-09-20 08:45 | PN.HOSP_ITS ---
Subjective Subjective Doing much better today, bilirubin has normalized he denies any abdominal pain though he says he has been having intermittent abdominal pain since his appendicitis in February. Repeat blood cultures are pending Objective Data Objective Data Vital Signs: Vital Signs Temp Pulse Resp BP Pulse Ox O2 Del Method O2 Flow Rate 98.4 F 73 21 H 100/69 98 Room Air 2 09/20/24 06:00 09/20/24 06:00 09/20/24 06:00 09/20/24 06:00 09/20/24 08:10 09/20/24 08:10 09/19/24 07:56 FiO2 2 09/19/24 09:00 Oxygen Flow Rate (L/min) 2 Oxygen Delivery Method Room Air Weight: 162 lb 4.8 oz Body Mass Index (BMI) 26.1 Intake & Output: Intake and Output for Last 24 Hours 09/19/24 09/20/24 09/21/24 03:59 03:59 03:59 Intake Total 5985.19 / 5988.94 3187.97 / 3187.97 1215 / 1215 Output Total 475 / 475 2700 / 2700 475 / 475 Balance 5510.19 / 5513.94 487.97 / 487.97 740 / 740 Lab / Micro Data 09/20/24 04:00 09/20/24 04:00 Labs: Laboratory Results - last 24 hr 09/19/24 04:10: Total Bilirubin 1.56 H, Direct Bilirubin 1.15 H, AST 39 H, ALT 25, Alkaline Phosphatase 169 H, Total Protein 5.2 L, Albumin 2.8 L, Globulin 2.4 09/20/24 04:00: WBC 5.2, RBC 2.81 L, Hgb 6.8 L, Hct 22.6 L, MCV 80.4, MCH 24.2 L , MCHC 30.1 L, RDW Std Deviation 62.5 H, RDW Coeff of Lydia 21.2 H, Plt Count 84 L , MPV 8.9, Immature Gran % (Auto) 0.600, Neut % (Auto) 83.2 H, Lymph % (Auto) 12.6 L, [place] % (Auto) 3.6, Eos % (Auto) 0.0, Baso % (Auto) 0.0, Absolute Neuts (auto) 4.4, Absolute Lymphs (auto) 0.66 L, Nucleated RBC % 0, Differential Comment SCANNED, Hypochromasia 2+, Anisocytosis 3+, Microcytosis 2+, Ovalocytes 1+, Alexx Cells 1+, Sodium 138, Potassium 3.9, Chloride 112 H, Carbon Dioxide 16.0 L, Anion Gap 10, BUN 33 H, Creatinine 0.96, Estim Creat Clear Calc 63.69, Est GFR (MDRD) Non-Af 85, BUN/Creatinine Ratio 34.9 H, Glucose 175 H, Calcium 7.0 L, Total Bilirubin 0.47, AST 30, ALT 20, Alkaline Phosphatase 135 H, Total Protein 5.2 L, Albumin 2.7 L, Globulin 2.5, Albumin/Globulin Ratio 1.1 09/20/24 07:45: Blood Type B NEGATIVE, Crossmatch See Detail Micro: Microbiology 09/18/24 13:40 Blood Culture (Wb) - Anticubital Left Blood Culture - Preliminary 09/19/24 10:45 Stool Enteric Bacteriology - Final 09/19/24 10:45 Stool Clostridioides difficile (PCR) - Final 09/18/24 13:30 Urine, Clean Catch Urine Culture - Preliminary Culture exhibits no growth. 09/18/24 13:40 Blood Culture (Wb) - Left Forearm Blood Culture - Preliminary 09/18/24 13:45 Mucosa - Nose SARS-CoV-2, Influenza & RSV (PCR) - Final Radiography Diagnostic Testing: Radiology Impression Abdomen/Pelvis CT 09/19/24 07:13 IMPRESSION: No acute abdominopelvic finding. Reading Location: [id number] Rhythm Strip Rhythm Strip: Sinus Rhythm Rate: 90 Ectopy: None Physical Exam Narrative General: Alert, Oriented x3, Cooperative, No apparent distress HEENT: Atraumatic, PERRLA, EOMI, Normocephalic, Mohs surgery on his right scalp dressing intact with fluid collection underneath does not appear infected, no surrounding erythema Oral: Moist Mucosa Neck: Supple, No JVD Lungs: Diminished, Normal air movement, No rhonchi, No wheeze, No rales Cardiovascular: Regular rate, Regular Rhythm, Normal S1, Normal S2, No murmurs Abdomen: Soft, Non Tender, Non-Distended, No Hepato-splenomegaly Extremities: No edema, Capillary Refill Less than 3 Seconds Skin: No rashes, No breakdown Musculoskeletal: No Tenderness to Palpation of Joints or Extremities Neurological: No focal neurological deficits, moves all extremities Psych/Mental Status: Normal Affect, Appropriate Assessment & Plan Assessment/Plan (1) Sepsis: (2) Acute kidney injury: PLAN: Plan 1. Severe sepsis of unclear source/STACI ? She received 3 L of fluid in the ER with a beautiful response to his blood pressure ? Will decrease IV fluids but will continue as he is getting a CT scan of his abdomen and pelvis ? Will administer broad-spectrum antibiotics with Vanco and Zosyn ? Blood cultures with gram-positive cocci in clusters and gram-negative rods, repeat cultures also pending ? Urine culture is no growth ? Will add oral prednisone as he takes 5 mg of prednisone twice daily, as a stress dose ? Will have wound care evaluate his Mohs surgical site while here ?STACI has resolved ? As his mean arterial pressure never dropped below 60 regardless of the fact that he was started on pressors overnight into the I do not believe that this constitutes septic shock 2. Metastatic prostate cancer/anemia of chronic disease ? He has been having headaches and he did tell his oncologist about it who did not feel that it warranted imaging at this time as they felt that it was related to his Mohs surgery, however if this continues would recommend MRI ? Will stress dose of steroids with prednisone ? Will hold his cancer medications ? 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 Hyperlipidemia ? Can continue his Lipitor ? Stable 4. BPH with obstruction ? Can plan for voiding trial prior to discharge ? Continue with Flomax DVT: Heparin Charges/Coding Visit Charges Inpatient E&M: 63872 Subs Hosp L2
[2024-09-20] MEDS: Ensure Plus High Protein 120 ML LIQUID PO ×2 (09:59→20:52)
--- NOTE | 2024-09-20 10:17 | CASEMGMT ---
ERIN DAS Assessment Face to Face with patient for initial transition planning/care coordination assessment. ERIN DAS introduced self and role at [facility], pt voices understanding. Pt is A&Ox4 and is resting comfortably in the chair and is calm. Care providers, pharmacy, and demographics verified. Admitting dx: Sepsis LACE Strata: 3 PCP: Rory Ocampo Specialists: Maritza (Oncology) Preferred Pharmacy: [facility] Insurance: [facility] A/B, AARP Prescription Benefit: Yes LNOK: Robyn (W) Living Arrangements: Pt lives with his in a single story home with a flat entrance ADLs/IADLs: Pt states that he is independent but does feel more weak than normal. Pt RN states that she will order a PT evaluation. Transportation: Self, DME: Denies uses or needs now HHC/SNF: Denies hx or needs Wound: Pt has a wound to his head that he states is from a recent procedure done by [facility]. Pt states that he has been caring for this at home with the help of his . Pt states that he plans to f/u with [facility] as an OP to help with the wound healing process and denies concerns. Wound RN is consulted. Pt?s goal: Home Plan: home with pt once medically ready, anticipate no additional needs at this time pending PT evaluation. Pt states that he feels safe returning home with his once he is medically ready and denies further questions or concerns now. Ag Vidales RN, CM
--- NOTE | 2024-09-20 11:37 | WOUNDNOTE ---
wound photo: top of head
[2024-09-20] MEDS: Pantoprazole Sodium 40 MG Tablet PO (12:42)
--- NOTE | 2024-09-20 16:58 | NURSING ---
report called to [facility] ERIN Darden
[2024-09-20] MEDS: Acetaminophen 500 MG Tablet 1000 MG PO (23:57)
[2024-09-21 04:51] LABS: Absolute Lymphocyte Count 0.79 X10^3/uL (0.83-4.51); Absolute Neutrophil Count 5.1 X10^3/uL (2.0-7.7); Eosinophil# 0.05 X10^3/uL; Eosinophils% 0.8 % (0-5); Hematocrit 28.7 % (40-54); Lymphocyte # 0.79 X10^3/ul (0.83-4.51); Mean Corp Hgb Conc 31.4 g/dL (32-36); Mean Corpuscular Volume 79.7 fL (80-94); Mean Platelet Vol. 9.2 fl (6.2-12.0); Monocyte# 0.18 X10^3/uL; NRBC Flagged by Analyzer 0 % (0-5); Neutrophil # 5.05 X10^3/uL (2.7-7.7); Neutrophil % 82.7 % (47-70); POSITIVE COUNT YES; POSITIVE MORPHOLOGY YES; Platelet Count 85 K/mm3 (150-450); RBC Distribution Width CV 20.1 % (11.6-14.6); RBC Distribution Width SD 58.4 fl (35.1-43.9); White Blood Count 6.1 K/mm3 (4.4-11.0)
[2024-09-21 04:57] LABS: Differential Indicated SCAN CRITERIA MET
[2024-09-21 05:10] LABS: ALB/GLOB Ratio 1.1 RATIO (0.9-2.4); AST(SGOT) 40 U/L (<=37); Alanine Aminotransfer ALT/SGPT 33 U/L (<=46); Alkaline Phosphatase 167 U/L (40-129); Anion Gap 11 (5-15); BUN 35 mg/dL (4-19); BUN/Creat Ratio 40.7 RATIO (10-20); Calcium,Total 7.5 mg/dL (7.6-11.0); Carbon Dioxide 16.5 mmol/L (21.0-32.0); Chloride 113 mmol/L (98-108); Creatinine, Serum 0.86 mg/dL (0.70-1.20); EST Glomerular Filtration Rate 93 (>60); Estimated Creatinine Clearance 71.09 ml/min (50-250); Globulin 2.6 g/dL (2.2-4.2); Glucose 123 mg/dL (70-99); Protein, Total 5.6 g/dL (5.9-8.4); Sodium Level 140 mmol/L (133-145)
[2024-09-21 05:17] LABS: Vancomycin, Trough Level 8.9 ug/mL (5.0-15.0)
[2024-09-21] MEDS: Piperacil/Tazobactam 3.375 GM in 0.9% Normal Saline (50mL MB+) 50 ML IV ×3 (05:42→22:24)
[2024-09-21] MEDS: Heparin Injection (Vial) 5,000 UNIT/ML VIAL 5000 UNIT SC ×2 (05:46→14:30)
--- NOTE | 2024-09-21 05:51 | PCM.RX.CS ---
Consult Antibiotic Management Pharmacy has been consulted to manage selected antibiotic: Vancomycin Type of Intervention Type of Consult: Follow-up Labs Labs: Sodium 140 mmol/L (133-145) 09/21/24 04:30 Potassium 4.0 mmol/L (3.3-5.1) 09/21/24 04:30 Chloride 113 mmol/L (98-108) H 09/21/24 04:30 Carbon Dioxide 16.5 mmol/L (21.0-32.0) L 09/21/24 04:30 Anion Gap 11 (5-15) 09/21/24 04:30 BUN 35 mg/dL (4-19) H 09/21/24 04:30 Creatinine 0.86 mg/dL (0.70-1.20) 09/21/24 04:30 Est GFR (MDRD) Non-Af 93 (>60) 09/21/24 04:30 BUN/Creatinine Ratio 40.7 RATIO (10-20) H 09/21/24 04:30 Glucose 123 mg/dL (70-99) H 09/21/24 04:30 Vancomycin Trough 8.9 ug/mL (5.0-15.0) 09/21/24 04:30 Microbiology Microbiology: Microbiology 09/18/24 13:30 Urine, Clean Catch Urine Culture - Final Culture exhibits no growth. 09/18/24 13:40 Blood Culture (Wb) - Anticubital Left Blood Culture - Preliminary 09/19/24 10:45 Stool Enteric Bacteriology - Final 09/19/24 10:45 Stool Clostridioides difficile (PCR) - Final 09/18/24 13:40 Blood Culture (Wb) - Left Forearm Blood Culture - Preliminary 09/18/24 13:45 Mucosa - Nose SARS-CoV-2, Influenza & RSV (PCR) - Final Goal Trough Goal Trough: 15-20 mcg/mL Pharmacy Plan for Drug Dosing Pharmacy Plan for Drug Dosing: Pharmacy Service will continue to monitor and adjust dosing as required. TROUGH 8.9 @ 0430. INCREASE TO 750MG Q12H AND DRAW TROUGH PRIOR TO 4TH DOSE Follow-Up Labs Follow-Up Labs: Trough: Vancomycin Date/Time Labs Ordered Labs to be done on [date and time ordered]: 09/22 @ 1700
[2024-09-21 05:53] VITALS: BP 106/73; PULSE 69; RESP 16; TEMP 36.4; O2SAT 97
[2024-09-21 05:54] VITALS: BMI 26.0
[2024-09-21] MEDS: Vancomycin HCl 750 MG in 0.9% Normal Saline (250mL Bag) 250 ML 250 MG IV ×2 (05:58→16:44)
[2024-09-21 06:34] LABS: Anisocytosis 2+; Atypical Lymphocyte 1+ %; Differential Comment SCANNED; Platelet Estimate MKD DEC (ADEQ)
--- NOTE | 2024-09-21 07:24 | US_ITS ---
PROCEDURE: ABDOMEN LIMITED 09/21/2024 REASON FOR EXAM: UNKNOWN SOURCE INFECTIOM, RUQ PAIN TECHNIQUE: ABDOMEN LIMITED COMPARISON: Prior CT scan of the abdomen and pelvis dated September 19, 2024. FINDINGS: Liver: Coarsened hepatic echotexture with a nodular liver contour suggestive of cirrhosis. Gallbladder: Gallbladder wall thickening especially along its anterior aspect. Cholecystitis should be ruled out. The gallbladder wall measures 5 mm. Common bile duct: Normal measuring 5 mm. . Pancreas: Visualized portions are sonographically unremarkable. Kidneys: The right kidney measures 10.8 cm 5.5 cm 4.2 cm. Renal cortex measures 1.8 cm. US/Abdomen Limited IMPRESSION: Heterogeneous echotexture of the liver parenchyma. Edematous anterior gallbladder wall measuring 5 mm. Cholecystitis should be ru led out. Reading Location: [place] [id number]
[2024-09-21] MEDS: predniSONE 20 MG Tablet 40 MG PO (07:55)
[2024-09-21] MEDS: Pantoprazole Sodium 40 MG Tablet PO (07:55)
[2024-09-21 08:06] VITALS: BP 123/78; PULSE 75; RESP 18; TEMP 36.6; O2SAT 98
--- NOTE | 2024-09-21 10:04 | PN.HOSP_ITS ---
Subjective Subjective Doing well today, feels much better than he did yesterday. LFTs are improving Objective Data Objective Data Vital Signs: Vital Signs Temp Pulse Resp BP Pulse Ox O2 Del Method O2 Flow Rate 97.8 F 75 18 123/78 H 98 Room Air 2 09/21/24 08:06 09/21/24 08:06 09/21/24 08:06 09/21/24 08:06 09/21/24 08:06 09/21/24 08:10 09/19/24 07:56 FiO2 2 09/19/24 09:00 Oxygen Flow Rate (L/min) 2 Oxygen Delivery Method Room Air Weight: 162 lb 0.636 oz Body Mass Index (BMI) 26.0 Intake & Output: Intake and Output for Last 24 Hours 09/20/24 09/21/24 09/22/24 03:59 03:59 03:59 Intake Total 3187.97 / 3187.97 2565 / 2565 715 / 715 Output Total 2700 / 2700 1650 / 1650 300 / 300 Balance 487.97 / 487.97 915 / 915 415 / 415 Lab / Micro Data 09/21/24 04:30 09/21/24 04:30 Labs: Laboratory Results - last 24 hr 09/20/24 07:45: Blood Type B NEGATIVE, Antibody Screen NEGATIVE, Crossmatch See Detail 09/21/24 04:30: WBC 6.1, RBC 3.60 L, Hgb 9.0 L, Hct 28.7 L, MCV 79.7 L, MCH 25.0 L, MCHC 31.4 L, RDW Std Deviation 58.4 H, RDW Coeff of Lydia 20.1 H, Plt Count 85 L, MPV 9.2, Immature Gran % (Auto) 0.500, Neut % (Auto) 82.7 H, Lymph % (Auto) 13.0 L, [place] % (Auto) 3.0, Eos % (Auto) 0.8, Baso % (Auto) 0.0, Absolute Neuts (auto) 5.1, Absolute Lymphs (auto) 0.79 L, Nucleated RBC % 0, Differential Comment SCANNED, Atypical Lymphocytes 1+, Platelet Estimate MKD DEC, Anisocytosis 2+, Sodium 140, Potassium 4.0, Chloride 113 H, Carbon Dioxide 16.5 L, Anion Gap 11, BUN 35 H, Creatinine 0.86, Estim Creat Clear Calc 71.09, Est GFR (MDRD) Non-Af 93, BUN/Creatinine Ratio 40.7 H, Glucose 123 H, Calcium 7.5 L, Total Bilirubin 0.70, AST 40 H, ALT 33, Alkaline Phosphatase 167 H, Total Protein 5.6 L, Albumin 3.0 L, Globulin 2.6, Albumin/Globulin Ratio 1.1, Vancomycin Trough 8.9 Micro: Microbiology 09/18/24 13:40 Blood Culture (Wb) - Anticubital Left Blood Culture - Preliminary Gram positive organism 09/18/24 13:40 Blood Culture (Wb) - Left Forearm Blood Culture - Preliminary 09/18/24 13:30 Urine, Clean Catch Urine Culture - Final Culture exhibits no growth. 09/19/24 10:45 Stool Enteric Bacteriology - Final 09/19/24 10:45 Stool Clostridioides difficile (PCR) - Final 09/18/24 13:45 Mucosa - Nose SARS-CoV-2, Influenza & RSV (PCR) - Final Rhythm Strip Rhythm Strip: Sinus Rhythm Rate: 90 Ectopy: None Physical Exam Narrative General: Alert, Oriented x3, Cooperative, No apparent distress HEENT: Atraumatic, PERRLA, EOMI, Normocephalic, Mohs surgery on his right scalp dressing intact with fluid collection underneath does not appear infected, no surrounding erythema Oral: Moist Mucosa Neck: Supple, No JVD Lungs: Diminished, Normal air movement, No rhonchi, No wheeze, No rales Cardiovascular: Regular rate, Regular Rhythm, Normal S1, Normal S2, No murmurs Abdomen: Soft, Non Tender, Non-Distended, No Hepato-splenomegaly Extremities: No edema, Capillary Refill Less than 3 Seconds Skin: No rashes, No breakdown Musculoskeletal: No Tenderness to Palpation of Joints or Extremities Neurological: No focal neurological deficits, moves all extremities Psych/Mental Status: Normal Affect, Appropriate Assessment & Plan Assessment/Plan (1) Sepsis: (2) Acute kidney injury: PLAN: Plan 1. Severe sepsis of unclear source/STACI ?He received 3 L of fluid in the ER with a beautiful response to his blood pressure ? Will decrease IV fluids but will continue as he is getting a CT scan of his abdomen and pelvis ? Will administer broad-spectrum antibiotics with Vanco and Zosyn ? Blood cultures with gram-positive cocci in clusters and gram-negative rods, repeat cultures also pending. Still waiting for final results ? Urine culture is no growth ? Will add oral prednisone as he takes 5 mg of prednisone twice daily, as a stress dose ? Will have wound care evaluate his Mohs surgical site while here ?STACI has resolved ? As his mean arterial pressure never dropped below 60 regardless of the fact that he was started on pressors overnight into the I do not believe that this constitutes septic shock, given how transient pause. Midodrine has been discontinued as well 2. Metastatic prostate cancer/anemia of chronic disease ? He has been having headaches and he did tell his oncologist about it who did not feel that it warranted imaging at this time as they felt that it was related to his Mohs surgery, however if this continues would recommend MRI ? Will stress dose of steroids with prednisone ? Will hold his cancer medications ? 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 Hyperlipidemia ? Can continue his Lipitor ? Stable 4. BPH with obstruction ? Can plan for voiding trial prior to discharge ? Continue with Flomax DVT: Heparin Charges/Coding Visit Charges Inpatient E&M: 47939 Subs Hosp L2
--- NOTE | 2024-09-21 13:02 | CASEMGMT ---
Noted therapy evriver. ERIN CM into pt room, pt sitting up in chair. Pt states he feels therapy went well. He declines any need for therapy at this time. He states that once he gets back home, he will become more active. Pt denies need for a walker also.
[2024-09-21 14:18] VITALS: BP 103/61; PULSE 66; RESP 18; TEMP 36.6; O2SAT 99
[2024-09-21] MEDS: Ensure Plus High Protein 120 ML LIQUID PO ×2 (14:29→22:24)
[2024-09-21] MEDS: 0.9% Saline Lock 10 ML Syringe IV (16:45)
--- NOTE | 2024-09-21 18:27 | EX.PCM.CON.S ---
Assessment & Plan Assessment/Plan (1) Acute acalculous cholecystitis: PLAN: Patient is 69-year-old male with history of metastatic prostate cancer on immunotherapy as well as supportive medications for his history of pancytopenia who is admitted for apparent gram-negative and gram-positive septicemia. Initially there was no source for his sepsis, however, reinvestigation of the abdomen showed evidence of cholecystitis on ultrasound imaging. When I reviewed patient's CT imaging from his intake evaluation I believe there was evidence of gallbladder wall thickening with those pictures as well. In a dedicated review of patient's ultrasound imaging with radiology they confirmed the presence of an edematous wall but do not find any signs of emphysema or necrosis. They also did not find any evidence of cholelithiasis. Patient initially presented with mild elevation of his liver function testing, T. bili, and alkaline phosphatase but his alkaline phosphatase remains elevated and there was no ductal dilatation on either his CT or ultrasound imaging. Therefore, given patient's clinical status I am inclined to pursue a diagnosis of acalculous cholecystitis. I discussed the management of this condition with he and his spouse. Specifically, I shared that for patients with certain clinical findings (necrosis, emphysematous changes of the wall, or gallbladder perforation) cholecystectomy is required where the patient is an acceptable surgical candidate. For patients where they failed to respond to conservative measures and are not deemed a surgical candidate then we must consider cholecystostomy tube placement. However, Mr. Cordero's case he appears to have responded to conservative measures and so I am inclined to pursue this course of action as the consideration for cholecystectomy would include a number of patient-specific risks including cirrhotic morphology on imaging, thrombocytopenia, duration of symptoms extending beyond 72 hours, concurrent steroid therapy for stress dose, concurrent immunotherapy... Given the complexity of Mr. Cordero's care I discussed treatment implications with primary hospitalist, Dr. Nugent and recommended we consider involvement of hematology oncology as well for their input. Patient's primary concern is that he is able to return to immunotherapy and given the rarity of his condition and my unfamiliarity with his treatment regimen, I am unable to comment as to which option is most preferable given his complete clinical picture. For now recommend continuing dietary restriction with IV antibiotics and will continue with serial abdominal exams as we also await final results of his blood cultures. Rohit Crawford MD General Surgery Endocrine Surgery Pager: [facility] [address] [place] [address], Outpatient [place], [address] [place] [address] Office: [phone] HPI Consult Data Date of Consult: 09/21/24 HPI Narrative Reason for Consultation: Concern for cholecystitis HPI Narrative: SARAH CORDERO, is a 69 M who is known to me for a history of appendicitis status post laparoscopic appendectomy February 05, 2024 who presented to [facility] on 09/18[facility]24 due to complaints of dizziness and lethargy. Workup was conducted for suspicion for sepsis. ER workup notes patient denies any abdominal pain. Given hypotension patient required mission to the intensive care unit for the last 3 days. He has responded to supportive care and was able to be moved to regular medical surgical floor yesterday. Blood cultures are preliminary still but show polymicrobial growth. CT scan performed as part of intake investigation was read as demonstrating a large calcified gallstone of the gallbladder but otherwise no acute findings. However, without a source for patient's bacteremia hospitalist ordered right upper quadrant ultrasound imaging and this was read by radiology as concerning for cholecystitis given his edematous wall presentation. 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 Patient follows with Dr. Villarreal of oncology for treatment. Patient reports undergoing a procedure to try to stimulate healing of a prior Mohs procedure of the scalp 10 weeks ago just prior to his admission. [facility] Medical History (Updated 09/21/24 @ 18:[address] Rohit Crawford MD) Cancer Dizziness Home Medications ?Medication ?Instructions ?Recorded ?Last Taken ?Type abiraterone 250 mg tablet 1,000 mg PO DAILY prostate cancer 12/11/23 09/17/24 History atorvastatin 20 mg tablet 20 mg PO QHS cholesterol 12/11/23 09/17/24 History prednisone 5 mg tablet 5 mg PO BID prostate 12/11/23 09/17/24 History tamsulosin 0.4 mg capsule 0.4 mg PO DAILY prostate 12/11/23 09/17/24 History cimetidine 200 mg tablet (Tagamet 200 mg PO BID 02/05/24 09/17/24 History HB) leuprolide acetate (6 month) 45 mg 45 mg subcut .COMPLEX 02/05/24 09/15/24 History (6 month) subcutaneous syringe (Eligard) darbepoetin dagmar in polysorbat See Rx Instructions IV .COMPLEX 09/18/24 Unknown History Allergy/AdvReac Type Severity Reaction Status Date / Time No Known Allergies Allergy Verified 09/18/24 12:29 Family History (Updated 09/18/24 @ 16:[address] Ivan Nugent MD) Other Cancer Surgical History (Updated 09/18/24 @ 16:[address] Ivan Nugent MD) Status post Mohs surgery Social History Smoking Status: Never smoker Physical Exam Const alert and oriented x3 General Appearance: cooperative HEENT HEENT Narrative: Large bandage to top of head Resp normal respiratory effort GI GI Narrative: Minimally distended, soft, mild tenderness with deep palpation of the right upper quadrant. Negative Renee sign. Lab / Micro Data 09/21/24 04:30 09/21/24 04:30 Labs: Laboratory Results - last 24 hr 09/21/24 04:30: WBC 6.1, RBC 3.60 L, Hgb 9.0 L, Hct 28.7 L, MCV 79.7 L, MCH 25.0 L, MCHC 31.4 L, RDW Std Deviation 58.4 H, RDW Coeff of Lydia 20.1 H, Plt Count 85 L, MPV 9.2, Immature Gran % (Auto) 0.500, Neut % (Auto) 82.7 H, Lymph % (Auto) 13.0 L, [place] % (Auto) 3.0, Eos % (Auto) 0.8, Baso % (Auto) 0.0, Absolute Neuts (auto) 5.1, Absolute Lymphs (auto) 0.79 L, Nucleated RBC % 0, Differential Comment SCANNED, Atypical Lymphocytes 1+, Platelet Estimate MKD DEC, Anisocytosis 2+, Sodium 140, Potassium 4.0, Chloride 113 H, Carbon Dioxide 16.5 L, Anion Gap 11, BUN 35 H, Creatinine 0.86, Estim Creat Clear Calc 71.09, Est GFR (MDRD) Non-Af 93, BUN/Creatinine Ratio 40.7 H, Glucose 123 H, Calcium 7.5 L, Total Bilirubin 0.70, AST 40 H, ALT 33, Alkaline Phosphatase 167 H, Total Protein 5.6 L, Albumin 3.0 L, Globulin 2.6, Albumin/Globulin Ratio 1.1, Vancomycin Trough 8.9 Micro: Microbiology 09/18/24 13:40 Blood Culture (Wb) - Anticubital Left Blood Culture - Preliminary Gram positive organism Gram negative moi 09/18/24 13:40 Blood Culture (Wb) - Left Forearm Blood Culture - Preliminary Rhythm Strip Rhythm Strip: Sinus Rhythm Rate: 90 Ectopy: None Imaging Radiology Impression Abdomen Ultrasound 09/21/24 07:24 IMPRESSION: Heterogeneous echotexture of the liver parenchyma. Edematous anterior gallbladder wall measuring 5 mm. Cholecystitis should be ruled out. Reading Location: [facility] Charges/Coding Visit Charges Inpatient E&M: 66936 Init Hosp L2
[2024-09-21 20:47] VITALS: BP 123/78; PULSE 78; RESP 18; TEMP 36.6; O2SAT 100
[2024-09-22] MEDS: 0.9% Normal Saline (250mL Bag) 250 ML 15 ML IV (01:55)
[2024-09-22 03:30] VITALS: BMI 26.0
[2024-09-22 03:40] VITALS: BP 125/77; PULSE 69; RESP 16; TEMP 36.6; O2SAT 95
[2024-09-22 05:46] LABS: Absolute Lymphocyte Count 1.11 X10^3/uL (0.83-4.51); Eosinophil# 0.04 X10^3/uL; Eosinophils% 0.9 % (0-5); Hematocrit 29.3 % (40-54); Hemoglobin 9.2 g/dL (13.0-16.5); Lymphocyte # 1.11 X10^3/ul (0.83-4.51); Lymphocyte % 25.6 % (19-41); Mean Corp Hgb Conc 31.4 g/dL (32-36); Mean Corpuscular Hgb 25.6 pg (27.0-32.0); Mean Corpuscular Volume 81.4 fL (80-94); Mean Platelet Vol. 9.6 fl (6.2-12.0); Monocyte# 0.15 X10^3/uL; Monocyte% 3.5 % (0-10); NRBC Flagged by Analyzer 0 % (0-5); Neutrophil # 3.02 X10^3/uL (2.7-7.7); Neutrophil % 69.5 % (47-70); POSITIVE MORPHOLOGY YES; Platelet Count 107 K/mm3 (150-450); RBC Distribution Width CV 20.4 % (11.6-14.6); RBC Distribution Width SD 61.1 fl (35.1-43.9); White Blood Count 4.3 K/mm3 (4.4-11.0)
[2024-09-22] MEDS: Piperacil/Tazobactam 3.375 GM in 0.9% Normal Saline (50mL MB+) 50 ML IV ×2 (05:52→14:36)
[2024-09-22] MEDS: Vancomycin HCl 750 MG in 0.9% Normal Saline (250mL Bag) 250 ML 250 MG IV (05:52)
[2024-09-22 05:54] LABS: Differential Indicated SCAN CRITERIA MET
[2024-09-22 06:18] LABS: Anisocytosis 2+; Atypical Lymphocyte 1+ %; Differential Comment SCANNED
[2024-09-22 06:24] LABS: ALB/GLOB Ratio 1.3 RATIO (0.9-2.4); AST(SGOT) 44 U/L (<=37); Alanine Aminotransfer ALT/SGPT 40 U/L (<=46); Alkaline Phosphatase 156 U/L (40-129); Anion Gap 10 (5-15); BUN 31 mg/dL (4-19); BUN/Creat Ratio 39.9 RATIO (10-20); Calcium,Total 7.7 mg/dL (7.6-11.0); Carbon Dioxide 17.9 mmol/L (21.0-32.0); Chloride 110 mmol/L (98-108); Creatinine, Serum 0.77 mg/dL (0.70-1.20); EST Glomerular Filtration Rate 96 (>60); Estimated Creatinine Clearance 76.43 ml/min (50-250); Globulin 2.4 g/dL (2.2-4.2); Glucose 108 mg/dL (70-99); Protein, Total 5.5 g/dL (5.9-8.4); Sodium Level 139 mmol/L (133-145); Total Bilirubin 0.72 mg/dL (0.00-1.30)
[2024-09-22 07:19] VITALS: BP 128/77; PULSE 75; RESP 18; TEMP 36.8; O2SAT 98
--- NOTE | 2024-09-22 07:20 | PCM.PN.SRG ---
Subjective Subjective Patient seen and examined during AM rounds. He reports that he is not having any significant tenderness today. He reports that he slept well overnight. Objective Data Objective Data Vital Signs: Vital Signs Temp Pulse Resp BP Pulse Ox O2 Del Method O2 Flow Rate 98 F 69 16 125/77 H 95 Room Air 2 09/22/24 03:40 09/22/24 03:40 09/22/24 03:40 09/22/24 03:40 09/22/24 03:40 09/22/24 03:44 09/19/24 07:56 FiO2 2 09/19/24 09:00 Oxygen Flow Rate (L/min) 2 Oxygen Delivery Method Room Air Weight: 162 lb 0.636 oz Body Mass Index (BMI) 26.0 Intake & Output: Intake and Output for Last 24 Hours 09/20/24 09/21/24 09/22/24 23:59 23:59 23:59 Intake Total 2728 / 2728 1767.00 / 1767.00 551.25 / 551.25 Output Total 1275 / 2125 1850 / 1850 500 / 500 Balance 1453 / 603 -83.00 / -83.00 51.25 / 51.25 Lab / Micro Data 09/22/24 05:12 09/22/24 05:12 Labs: Laboratory Results - last 24 hr 09/22/24 05:12: WBC 4.3 L, RBC 3.60 L, Hgb 9.2 L, Hct 29.3 L, MCV 81.4, MCH 25.6 L, MCHC 31.4 L, RDW Std Deviation 61.1 H, RDW Coeff of Lydia 20.4 H, Plt Count 107 L, MPV 9.6, Immature Gran % (Auto) 0.500, Neut % (Auto) 69.5, Lymph % (Auto) 25.6, [place] % (Auto) 3.5, Eos % (Auto) 0.9, Baso % (Auto) 0.0, Absolute Neuts (auto) 3.0, Absolute Lymphs (auto) 1.11, Nucleated RBC % 0, Differential Comment SCANNED, Atypical Lymphocytes 1+, Anisocytosis 2+, Sodium 139, Potassium 4.0, Chloride 110 H, Carbon Dioxide 17.9 L, Anion Gap 10, BUN 31 H, Creatinine 0.77, Estim Creat Clear Calc 76.43, Est GFR (MDRD) Non-Af 96, BUN/Creatinine Ratio 39.9 H, Glucose 108 H, Calcium 7.7, Total Bilirubin 0.72, AST 44 H, ALT 40, Alkaline Phosphatase 156 H, Total Protein 5.5 L, Albumin 3.0 L, Globulin 2.4, Albumin/Globulin Ratio 1.3 Micro: Microbiology 09/18/24 13:40 Blood Culture (Wb) - Anticubital Left Blood Culture - Preliminary Gram positive organism Gram negative moi 09/18/24 13:40 Blood Culture (Wb) - Left Forearm Blood Culture - Preliminary 09/18/24 13:30 Urine, Clean Catch Urine Culture - Final Culture exhibits no growth. 09/19/24 10:45 Stool Enteric Bacteriology - Final 09/19/24 10:45 Stool Clostridioides difficile (PCR) - Final 09/18/24 13:45 Mucosa - Nose SARS-CoV-2, Influenza & RSV (PCR) - Final Radiography Diagnostic Testing: Radiology Impression Abdomen Ultrasound 09/21/24 07:24 IMPRESSION: Heterogeneous echotexture of the liver parenchyma. Edematous anterior gallbladder wall measuring 5 mm. Cholecystitis should be ruled out. Reading Location: [place] [id number] Rhythm Strip Rhythm Strip: Sinus Rhythm Rate: 90 Ectopy: None Physical Exam Const oriented x3 and no apparent distress Resp normal respiratory effort GI GI Narrative: Minimal tenderness with deep palpation of the right upper quadrant. Negative Renee sign Assessment & Plan Assessment/Plan (1) Acute acalculous cholecystitis: PLAN: Patient is 69-year-old male with history of metastatic prostate cancer on immunotherapy as well as supportive medications for his history of pancytopenia who is admitted for apparent gram-negative and gram-positive septicemia. He has seen yesterday in consultation for a diagnosis of acalculous cholecystitis. Clinically, he continues to improve with minimal discomfort of his right upper quadrant. It is noted that he has some neutropenia today, however, this may be his baseline. I discussed with hospitalist service that management for acalculous cholecystitis with a patient that is responsive to conservative measures could follow continued conservative measures with antibiotics. However, I recommended once again reaching out to oncology to determine if this will in any way negatively impact patient's ability return to immunotherapy. I also reiterated that I would not recommend undertaking an operation in our facility given his history of thrombocytopenia and cirrhosis?to say nothing of the apparent advanced inflammatory change apparent on his intake imaging. Rohit Crawford MD General Surgery Endocrine Surgery Pager: [facility] [address] [place] [address], [address] [place] [address] Office: [phone] Charges/Coding Visit Charges Inpatient E&M: 54325 Subs Hosp L2
--- NOTE | 2024-09-22 07:21 | NURSING ---
vitals per student nurse under direction of her nursing home physician
[2024-09-22] MEDS: predniSONE 20 MG Tablet 40 MG PO (07:52)
[2024-09-22] MEDS: Pantoprazole Sodium 40 MG Tablet PO (07:52)
[2024-09-22] MEDS: Acetaminophen 500 MG Tablet 1000 MG PO (07:52)
[2024-09-22 10:58] VITALS: BP 114/72; PULSE 77; RESP 16; TEMP 36.7; O2SAT 99
[2024-09-22 14:32] VITALS: BP 123/71; PULSE 83; RESP 18; TEMP 36.6; O2SAT 99
[2024-09-22] MEDS: Heparin Injection (Vial) 5,000 UNIT/ML VIAL 5000 UNIT SC (14:36)
[2024-09-22] MEDS: 0.9% Saline Lock 10 ML Syringe IV (14:36)
--- NOTE | 2024-09-22 16:14 | DCINST_ITS ---
Discharge Instructions Diet Discharge Diet: No restrictions DC O2, CPAP, BIPAP needs Home O2 Discharge instructions: No Dressing / Incision Discharge Activity: Return to Normal Activity Dressing / Incision Call your doctor if you observe: Fever of 101 or Higher, Shortness of breath, Dizziness, Fainting spells, Swelling in the ankles, Chest pain and Increased palpitations (irregular heartbeat) Follow Up Care Test Results: Test results from this visit will be discussed in further detail at your follow- up appointment, if applicable. Discharge Plan Admission Admit Date/Time: 09/18/24 15:12 Attending Provider: Ivan Nugent Primary Care Provider: López Ocampo Consulting Providers: Rohit Crawford Discharge Orders/Prescriptions Prescriptions: New cefdinir 300 mg capsule 300 mg PO BID Qty: 16 0RF Continued cimetidine [Tagamet HB] 200 mg tablet 200 mg PO BID Rx Instructions: administer with meals Eligard (6 month) 45 mg syringe 45 mg subcut .COMPLEX Rx Instructions: 45 mg subcutaneously EVERY 6 MONTHS; atorvastatin 20 mg tablet 20 mg PO QHS prednisone 5 mg tablet 5 mg PO BID tamsulosin 0.4 mg capsule 0.4 mg PO DAILY abiraterone 250 mg tablet 1,000 mg PO DAILY darbepoetin dagmar in polysorbat [Aranesp (in polysorbate)] See Rx Instructions IV .COMPLEX Patient Comments: PT UNSURE OF STRENGTH, BUT TOOK THIS MONTH (SEPTEMBER 2024) Rx Instructions: intravenously EVERY MONTH; Referrals / Follow Up: López Ocampo MD [Primary Care Provider] - Within 1 Week Rohit Crawford MD [Med Staff - Active Staff] - Within 2 Weeks (Unless you prefer a [facility] physician) Disposition Disposition (needs filled in before D/C Order can be placed): Home, Self Care
[2024-09-22 18:03] LABS: Vancomycin, Trough Level 11.2 ug/mL (5.0-15.0)
--- NOTE | 2024-09-22 18:54 | DS.PCM_ITS ---
Providers Date of Admission: 09/18/24 Primary Care Physician: Dr. López Ocampo MD Consultations 09/18/24 16:37 Consult: Onc/Wound/tub operator Routine Comment: 09/21/24 18:27 Consult: General Surgery Routine Consulting Provider: Rohit Crawford Reason for Consult: radiology results EMERGENT Consult: No MD Notified: Yes Date Notified: 09/21/24 Time Notified: 18:27 Method of Notification: Verbal Comments:: per Dr. Nugent he already talked w/ Dr. Crawford Reason For Visit: SEPSIS Diagnosis Discharge Diagnosis (1) Acute acalculous cholecystitis: Status: Acute Code(s): K81.0 - Acute cholecystitis Medications at Discharge Home Medications abiraterone 250 mg tablet 1,000 mg PO DAILY prostate cancer 12/11/23 atorvastatin 20 mg tablet 20 mg PO QHS cholesterol 12/11/23 prednisone 5 mg tablet 5 mg PO BID prostate 12/11/23 tamsulosin 0.4 mg capsule 0.4 mg PO DAILY prostate 12/11/23 cimetidine 200 mg tablet (Tagamet HB) 200 mg PO BID 02/05/24 leuprolide acetate (6 month) 45 mg (6 month) subcutaneous syringe (Eligard) 45 mg subcut .COMPLEX 02/05/24 darbepoetin dagmar in polysorbat See Rx Instructions IV .COMPLEX 09/18/24 cefdinir 300 mg capsule 300 mg PO BID #16 caps 09/22/24 Hospital Course Operations None Procedures None Summary of Care Provided Minutes Spent on Discharge: 38 Hospital Course: Per HPI: SARAH CORDERO, is a 69 M who presents to the hospital with dizziness and hypotension. He has a history of stage IV prostate cancer with mets to the bone that he is currently on immunotherapy and hormonal therapy for. Both time he found that it was already metastatic so he has not undergone a prostatectomy. He has been having headaches for the last 3 weeks but they think that is due to his recent Mohs surgery that has not healed on his scalp. That area does not appear infected. He does not have a leukocytosis and he presented with an STACI to 2.13. He is also had a lactic acidosis of 2.3 and was given several fluid boluses in the emergency room. No obvious signs of infection at the moment, UA is unremarkable as is chest x-ray. He does have an elevated alk phos which is likely due to his bone mets but does also have an elevated total bilirubin at 1.7 sick and he does have some scleral icterus. Initially when he presented to the hospital his systolic blood pressures were in the 50s with a MAP of 41, currently on my evaluation his MAP is 67 with a systolic blood pressure of 102. He started feeling unwell yesterday though given the severity of his vital signs on arrival he has likely been sick for several days that was just asymptomatic secondary to his immunocompromise state. He is chronically on steroids and is unable to compensate. Hospital Course: 1. Severe sepsis with STACI and bacteremia?69-year-old male with history of stage IV prostate cancer with mets to the bone currently on immunotherapy and hormonal therapy presented to hospital with dizziness and hypotension. During his hospitalizations his maps never went below 60 and he was well-managed with IV fluids, he did have a few hours of being on Levophed. He was started on broad- spectrum antibiotics, unfortunately there has not been no clear source, urine sample and chest x-ray were negative for any type of infection and right upper quadrant ultrasound demonstrated possible acalculous cholecystitis with an anterior wall edema of the gallbladder. He also had abnormal bacterial organisms in his blood including a Streptococcus intermedius and the methylolbacterium they seem unlikely to be from a gallbladder source. However they should both be treated with Zosyn that he was on and I will transition him to cefdinir 300 mg p.o. twice daily. He was feeling much better on the day of discharge, he had been given stress dose of his steroids as he is on prednisone 5 mg p.o. twice daily because of his hormonal therapy that can lead to glucocorticoid deficiency. I do recommend outpatient follow-up with general surgery likely at the [facility] as our general surgery does not feel that this would be a facility to manage the complication of his case. In the meantime we will complete 8 more days of outpatient antibiotics and I discussed the case with his oncologist so hopefully they can assist in having a referral to [facility] surgeon. I discussed with him the plan for discharge today and he expressed understanding of the risks and benefits of going home and would like to go home today. 2. Metastatic prostate cancer, anemia of chronic disease, hyperlipidemia, BPH with obstruction are all chronic medical conditions which complicate his care. His home medications were continued where appropriate Physical Exam Narrative General: Alert, Oriented x3, Cooperative, No apparent distress HEENT: Atraumatic, PERRLA, EOMI, Normocephalic, Mohs surgery on his right scalp dressing intact with fluid collection underneath does not appear infected, no surrounding erythema Oral: Moist Mucosa Neck: Supple, No JVD Lungs: Diminished, Normal air movement, No rhonchi, No wheeze, No rales Cardiovascular: Regular rate, Regular Rhythm, Normal S1, Normal S2, No murmurs Abdomen: Soft, Non Tender, Non-Distended, No Hepato-splenomegaly Extremities: No edema, Capillary Refill Less than 3 Seconds Skin: No rashes, No breakdown Musculoskeletal: No Tenderness to Palpation of Joints or Extremities Neurological: No focal neurological deficits, moves all extremities Psych/Mental Status: Normal Affect, Appropriate Weight / BMI Weight Weight: 162 lb 0.636 oz Body Mass Index (BMI) 26.0 ABG / Lab / Microbiology Data 09/22/24 05:12 09/22/24 05:12 Laboratory: Laboratory Results - last 24 hr 09/22/24 05:12: WBC 4.3 L, RBC 3.60 L, Hgb 9.2 L, Hct 29.3 L, MCV 81.4, MCH 25.6 L, MCHC 31.4 L, RDW Std Deviation 61.1 H, RDW Coeff of Lydia 20.4 H, Plt Count 107 L, MPV 9.6, Immature Gran % (Auto) 0.500, Neut % (Auto) 69.5, Lymph % (Auto) 25.6, [place] % (Auto) 3.5, Eos % (Auto) 0.9, Baso % (Auto) 0.0, Absolute Neuts (auto) 3.0, Absolute Lymphs (auto) 1.11, Nucleated RBC % 0, Differential Comment SCANNED, Atypical Lymphocytes 1+, Anisocytosis 2+, Sodium 139, Potassium 4.0, C hloride 110 H, Carbon Dioxide 17.9 L, Anion Gap 10, BUN 31 H, Creatinine 0.77, Estim Creat Clear Calc 76.43, Est GFR (MDRD) Non-Af 96, BUN/Creatinine Ratio 39.9 H, Glucose 108 H, Calcium 7.7, Total Bilirubin 0.72, AST 44 H, ALT 40, A lkaline Phosphatase 156 H, Total Protein 5.5 L, Albumin 3.0 L, Globulin 2.4, Albumin/Globulin Ratio 1.3 09/22/24 17:08: Vancomycin Trough 11.2 Microbiology: Microbiology 09/20/24 07:45 Blood Culture (Wb) - Anticubital Right Blood Culture - Preliminary No growth in 48 hours. 09/18/24 13:40 Blood Culture (Wb) - Anticubital Left Blood Culture - Preliminary Streptococcus intermedius Gram negative moi 09/18/24 13:40 Blood Culture (Wb) - Left Forearm Blood Culture - Preliminary 09/18/24 13:30 Urine, Clean Catch Urine Culture - Final Culture exhibits no growth. 09/19/24 10:45 Stool Enteric Bacteriology - Final 09/19/24 10:45 Stool Clostridioides difficile (PCR) - Final 09/18/24 13:45 Mucosa - Nose SARS-CoV-2, Influenza & RSV (PCR) - Final D/C Instructions Discharge Diet: No restrictions Call your doctor if you observe: Fever of 101 or Higher, Shortness of breath, Dizziness, Fainting spells, Swelling in the ankles, Chest pain and Increased palpitations (irregular heartbeat) DC O2, CPAP, BIPAP Needs Home O2 Discharge instructions: No Meaningful Use Info Meaningful Use Meaningful Use Diagnoses (Choose all that apply): None applicable Ischemic Stroke Statin Dosing Therapy Reference: STATIN DOSE THERAPY REFERENCE: * Patients > 75 years receive moderate or high dose statin therapy. * Patients 75 years or YOUNGER should receive HIGH intensity statin dose unless contraindicated. You will be required to document reason for non-treatment if statin daily dose does not meet guidelines. HIGH DOSE STATIN THERAPY DAILY Atorvastatin > than or = to 40 mg Rosuvastatin > than or = to 20 mg Amlodipine + Atorvastatin > than or = to 2.5/40 mg Ezetimibe + Simvastatin 10/80 mg Simvastatin 80mg Discharge Plan Admission Admit Date/Time: 09/18/24 15:12 Attending Provider: Ivan Nugent Primary Care Provider: López Ocampo Consulting Providers: Rohit Crawford Discharge Orders/Prescriptions Prescriptions: New cefdinir 300 mg capsule 300 mg PO BID Qty: 16 0RF Continued cimetidine [Tagamet HB] 200 mg tablet 200 mg PO BID Rx Instructions: administer with meals Eligard (6 month) 45 mg syringe 45 mg subcut .COMPLEX Rx Instructions: 45 mg subcutaneously EVERY 6 MONTHS; atorvastatin 20 mg tablet 20 mg PO QHS prednisone 5 mg tablet 5 mg PO BID tamsulosin 0.4 mg capsule 0.4 mg PO DAILY abiraterone 250 mg tablet 1,000 mg PO DAILY darbepoetin dagmar in polysorbat [Aranesp (in polysorbate)] See Rx Instructions IV .COMPLEX Patient Comments: PT UNSURE OF STRENGTH, BUT TOOK THIS MONTH (SEPTEMBER 2024) Rx Instructions: intravenously EVERY MONTH; Referrals / Follow Up: López Ocampo MD [Primary Care Provider] - Within 1 Week Rohit Crawford MD [Med Staff - Active Staff] - Within 2 Weeks (Unless you prefer a [facility] physician) Disposition Disposition (needs filled in before D/C Order can be placed): Home, Self Care Charges/Coding Visit Charges Inpatient E&M: 11568 Disch Hosp >30min
== END 2024-09-22 18:26 | disposition home or self-care (01) | DRG 872 ==
LOC: ED 15:21 → ICU 16:03 → MS3 09-20 17:37
PROVIDERS: Admitting Provider Family Medicine; Emergency Provider Emergency Medicine; PCP Family Medicine; Visit Provider Family Medicine
DX: A40.8 Other streptococcal sepsis (principal); K81.0 Acute cholecystitis; C79.51 Secondary malignant neoplasm of bone; D61.818 Other pancytopenia; N17.9 Acute kidney failure, unspecified; N13.8 Other obstructive and reflux uropathy; R65.20 Severe sepsis without septic shock; E86.0 Dehydration; K74.60 Unspecified cirrhosis of liver; D63.8 Anemia in other chronic diseases classified elsewhere; C61 Malignant neoplasm of prostate; D63.0 Anemia in neoplastic disease; E78.5 Hyperlipidemia, unspecified; I95.9 Hypotension, unspecified; T39.315A Adverse effect of propionic acid derivatives, initial encounter; R51.9 Headache, unspecified; N40.1 Benign prostatic hyperplasia with lower urinary tract symptoms; D70.9 Neutropenia, unspecified; Z90.49 Acquired absence of other specified parts of digestive tract; Z79.899 Other long term (current) drug therapy; Z87.19 Personal history of other diseases of the digestive system; Z79.890 Hormone replacement therapy; Z98.890 Other specified postprocedural states; Z79.52 Long term (current) use of systemic steroids; Z85.828 Personal history of other malignant neoplasm of skin
CPT/HCPCS: 36415; 51702; 71045; 74177; 76705; 80048; 80053; 80076; 80202; 81001; 83605; 84484; 85025; 85610; 85730; 86644; 86850; 86900; 86901; 87040; 87077; 87086; 87186; 87493; 87506; 87631; 93005; 94762; 97116; 97162; 97165; 97802; 99283; P9016; Q9967; A4216; J2405

== ENCOUNTER 2024-10-14 09:06 | Outpatient (RCR) | payer MEDICARE, OTHER, SELFPAY ==
[2024-10-14 09:37] VITALS: BP 121/74; PULSE 92; RESP 16; TEMP 35.8; BMI 22.6
--- NOTE | 2024-10-14 10:08 | PCM.WC.HP ---
History of Present Illness Date of Service: 10/14/24 Chief Complaint: Nonhealing surgical wound/surgical wound breakdown History of Wound: Mr. Castillo is a 69-year-old who was referred here by his oncologist due to nonhealing surgical wound/surgical wound breakdown. Had a Mohs procedure in June due to squamous cell carcinoma and a week after, the wound broke down. Since then, has been following up closely with his special needs caregiver, applying Aquaphor and DuoDERM without improvement. He was referred to plastic surgery by his special needs caregiver however he wanted a second opinion to see if he could achieve wound healing without plastic surgery/graft closure. History of prostate cancer, currently following up with oncology. Otherwise healthy. No tobacco abuse and no history of diabetes. He feels well at this time and has no other acute concerns. [facility] Medical History Former tobacco use Acalculous cholecystitis Prostate cancer metastatic to bone CKD (chronic kidney disease), stage II Anemia Open wound of scalp with complication Home Medications Medication Instructions Recorded Last Taken Type abiraterone 250 mg tablet 1,000 mg PO DAILY prostate cancer 12/11/23 09/17/24 History atorvastatin 20 mg tablet 20 mg PO QHS cholesterol 12/11/23 09/17/24 History prednisone 5 mg tablet 10 mg PO BID prostate 12/11/23 09/17/24 History tamsulosin 0.4 mg capsule 0.4 mg PO DAILY prostate 12/11/23 09/17/24 History leuprolide acetate (6 month) 45 mg 45 mg subcut .COMPLEX 02/05/24 09/15/24 History (6 month) subcutaneous syringe ([facility]) calcium 600 mg (as 2 tab PO DAILY calcium 10/15/24 Unknown History carbonate)-vitamin D3 5 mcg (200 unit) tablet (Calcium 600 + D(3)) cimetidine 200 mg tablet 200 mg PO DAILY 10/15/24 Unknown History (Heartburn Relief (cimetidine)) darbepoetin dagmar in polysorbat 25 25 mcg subcut QMONTH 10/15/24 Unknown History mcg/mL in polysorbate injection (Aranesp) Allergy/AdvReac Type Severity Reaction Status Date / Time No Known Allergies Allergy Verified 10/15/24 04:35 Family History (Updated 10/15/24 @ 11:[address] Lety Augustine MD) Father Prostate cancer Hypertension Mother No problems noted. 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 Lety Augustine MD) household members: spouse Smoking Status: Former smoker how long ago did patient quit smoking: Quit ~ 40 years prior, smoked <1 ppd in college. alcohol intake: current alcohol intake frequency: holidays/special occasions only ROS Constitutional Constitutional: Denies fatigue, frequent falls, headache(s) or lethargy Eyes Eyes: Denies discharge from eye(s), discongugate gaze, double vision, erythema or excessive blinking ENT HEENT: Denies epistaxis, foreign body in nose, halitosis, hearing loss, hoarseness or lip swelling Cardiovascular Cardiovascular: Denies abdominal bloating, bluish discoloration of hand/feet, cold extremities, diaphoresis, leg edema or leg ulcers Respiratory/Chest Respiratory/Chest: Denies dusky skin, dyspnea, excessive phlegm production, hemoptysis, hoarseness, inability to speak or nail bed cyanosis Gastrointestinal Gastrointestinal: Denies anorexia, belching, coffee ground emesis or dry heaves Genitourinary Genitourinary: Denies abdominal discomfort, anuria, contractions, flank pain or itching Musculoskeletal Musculoskeletal: Denies atrophy, joint swelling, limited range of motion, muscle weakness or tremors Integumentary Integumentary: Denies bleeding lesions, erythema, furuncle, hirsutism or jaundice Neurologic Neurologic: Denies burning sensations, confusion, convulsions, focal weakness or lack of coordination Psychiatric Psychiatric: Denies auditory hallucinations, behavioral changes, hallucinations, memory loss, tactile hallucinations or visual hallucinations Endocrine Endocrinology: Denies change in body appearance, excessive sweating, flushing or increase in ring/shoe/hat size Allergic/Immunologic Allergic/Immunologic: Denies itchy eyes, lip swelling, rhinitis, throat swelling, tongue swelling, urticaria or wheezing Vital Signs Vital Signs Vital Signs: 10/14/24 09:37 Temperature 96.4 F L Temperature Source Temporal Pulse Rate 92 Respiratory Rate 16 Blood Pressure 121/74 H Blood Pressure Mean 89 Blood Pressure Source Monitor Blood Pressure Position Semi-Fowlers Blood Pressure Location Left Arm Oxygen Delivery Method Room Air Weight Weight: 140 lb Body Mass Index (BMI) 22.6 Physical Exam Const alert, oriented x3 and no apparent distress General Appearance: cooperative, comfortable, well kempt and well developed HEENT normocephalic and hearing grossly normal bilaterally Eyes EOMs intact bilaterally General Eye: normal appearance of both eyes Neck full ROM and supple General: normal visual inspection Resp normal respiratory effort Effort and Inspection: able to speak in complete sentences Extremity normal to inspection and full ROM Skin Wounds: wounds noted Neuro oriented x3, CN's II-XII intact bilaterally, moves all extremities and no focal motor deficits Psych mental status grossly normal, thought process normal, cooperative and affect normal Debridement Note Debridement Note Post-Debridement Measurements and Additional Note: Post-Debridement Measurements/Treatment - Nurse 1 - General Ulcer Assessment Start: 10/14/24 09:34 Freq: Status: Active Protocol: [facility] Activity Type Activity Date Activity User E-sign Co-sign Detail Recorded Client Recorded Date Recorded By Document 10/14/24 09:37 [id number] 10/14/24 09:51 10/14/24 09:37 - Today's Visit Information Type of service Initial Visit Arrival Mode Ambulatory Accompanied by Prieto Patient Identification Verified (Name & Yes ) Height and Weight Height 5 ft 6 in Weight 140 lb Weight in Pounds 140.0 lbs Weight Measurement Method Estimated by Patient Body Mass Index (BMI) 22.6 BMI Classification Normal Vital Signs Temperature (97.8 F-99.1 F) 96.4 F L Temperature Source Temporal Pulse Rate (60-100) 92 Pulse Location Monitor Respiratory Rate (12-18) 16 Respiratory rate source Observation Oxygen Delivery Method Room Air Blood Pressure (90/60-120/80) 121/74 H Blood Pressure Mean 89 Source Monitor Position Semi-Fowlers Blood Pressure Location Left Arm History Since Last Visit- (Skip if this is Patient's initial visit) Left Footwear Regular Shoe Right Footwear Regular Shoe Pain Scale: 0-10 Numeric Is Patient Pain Free? No scalp -Comments experiencing headaches and has localized pain Communication Assessment Preferred language Filipino Accountant Assistant Required No Able to Read Yes Able to Write Yes Communication Tools None Caregiver Communication Skills No Impairment Impairment Right Hearing Abillity Normal Left Hearing Abillity Normal Visual Assistive Devices Glasses Teaching Assessment Preferences Verbal,Written, Demonstration Barriers to Learning None Readiness To Learn Excellent Willingness to Engage in Self Management High Activies Readiness to Engage in Self Management High Activities Anxiety Level Calm Cooperation Cooperative Perception Coherent Interest in Health Problem Asks Questions Education Importance Acknowledges Need Does Patient Smoke tobacco or other No substances Smoking Status Never smoker Is Patient Diabetic No Functional Assessment Recent Decline in Ability to Perform Denies Any Declines Culture/Orthodox/Associate Merchant Cultural/Orthodox Needs that may affect No Treatment Plan Would you allow our hospital supervisor concrete pipe plant to No meet you for the purpose of spiritual/ emotional support? Associate Merchant to contact place of bahai No WC - Nurse 1 - General Ulcer Measurement Start: 10/14/24 09:34 Freq: Status: Active Protocol: Activity Type Activity Date Activity User E-sign Co-sign Detail Recorded Client Recorded Date Recorded By Document 10/14/24 09:37 [id number] 10/14/24 09:51 10/14/24 09:37 Wound Center Nurse 1 #1 scalp -Current Size (cm) - Length 2.1 -Current Size (cm) - Width 1 -Current Size (cm) - Depth 0.2 -Total Square Cm 2.1 -Date of Last Picture (Recall this 10/14/24 field) -Exudate Amt None Present -Wound Margin Thickened & Rolled Under -Granulation Amt None Present (0 %) -Necrosis Amt None Present (0 %) -Structure Exposed Bone -Texture (Deborah-wound Skin Appearance) Assessed -Moisture (Deborah-wound Skin Appearance) Assessed -Color (Deborah-wound Skin Appearance) Assessed -Temperature (Deborah-wound Skin No Abnormality Appearance) (Pt Warm) -Tenderness on Palpation (Deborah-wound No Skin Appearance) -Ulcer Cleansing Soap and Water -Foul Odor after Cleansing No -Anesthetic Used 5% Lidocaine Gel -Wound Comment(s) applied 5% around wound edges WC - Nurse 2 - General Ulcer CM Notes Start: 10/14/24 09:34 Freq: Status: Active Protocol: Activity Type Activity Date Activity User E-sign Co-sign Detail Recorded Client Recorded Date Recorded By Document 10/14/24 10:00 [id number] 10/14/24 10:02 10/14/24 10:00 Wound Center Nurse 2 -Time 10:00 -Correct Patient Yes -Correct Side, Site, Position Yes -Correct Procedure No -Procedure Performed No -Tunneling No -Undermining/Tunneling No -Circular Undermining No -Wound/Ulcer Outcome Not Healed -Ulcer Cleansing Not Cleansed -Foul Odor after Cleansing No -Bioengineered Tissue No -Bleeding Controlled with NA -Offloading No Pain Scale: 0-10 Numeric Is Patient Pain Free? Yes - Nurse 3 - General Ulcer D/C NN Start: 10/14/24 09:34 Freq: Status: Active Protocol: Activity Type Activity Date Activity User E-sign Co-sign Detail Recorded Client Recorded Date Recorded By Document 10/14/24 10:07 [id number] 10/14/24 10:07 10/14/24 10:07 Wound Care Center Nurse 3 #1 scalp -Ulcer Cleansing Not Cleansed -Primary Dressing Covered/Secured with Dry Gauze, Secured with Tape Pain Scale: 0-10 Numeric Is Patient Pain Free? 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 Wound examined, exposed skull bone. No significant surrounding tissue. Rolled edges. He states that he actually was referred to plastic surgery for possible graft closure however he wanted a second opinion. Discussed with patient and his and they were advised that this is the only way to achieve healing. They already have an appointment with a plastic surgeon in [place] with the [facility] where he typically gets care. We discussed having a plastic surgeon locally if he chooses to stay local. For now, continue Aquaphor and gauze dressing. Continue to keep area clean. Continue other chronic wound care measures per dermatology. Their questions were answered and they were advised to let us know if they had any further questions or concerns. Discharge from the wound center. This note was generated with [email or web address] dictation software. It may contain incorrect words, spelling, and punctuation that were not noted in checking the note before signing.
--- NOTE | 2024-10-15 10:19 | WC ---
PHOTO 10/14/24 SCALP
== END 2024-10-14 15:20 | disposition home or self-care (01) ==
LOC: WC 09:06
PROVIDERS: PCP Family Medicine; Referring Provider Family Medicine; Visit Provider Internal Medicine
DX: T81.31XA Disruption of external operation (surgical) wound, not elsewhere classified, initial encounter (principal); S01.00XA Unspecified open wound of scalp, initial encounter; N18.2 Chronic kidney disease, stage 2 (mild); Z87.891 Personal history of nicotine dependence; Y83.8 Other surgical procedures as the cause of abnormal reaction of the patient, or of later complication, without mention of misadventure at the time of the procedure; C44.90 Unspecified malignant neoplasm of skin, unspecified; Z79.899 Other long term (current) drug therapy
CPT/HCPCS: 99213; G0463

== ENCOUNTER 2024-10-15 04:33 | Inpatient (IN) | payer MEDICARE, OTHER, SELFPAY ==
[2024-10-15] VITALS (49 sets, daily range): BP systolic 78–126; BP diastolic 43–109; PULSE 76–114; RESP 10–27; TEMP 36.4–37.9; O2SAT 93–99; BMI 22.6; BMI 24.1
[2024-10-15] MEDS: 0.9% Normal Saline (1000mL) 1,000 ML 999 ML IV ×3 (05:14→09:15)
[2024-10-15 05:17] LABS: Hematocrit 32.2 % (40-54); Hemoglobin 9.8 g/dL (13.0-16.5); Immature Granulocytes Count 0.030 X10^3/uL (0.0-0.0); Mean Corp Hgb Conc 30.4 g/dL (32-36); Mean Corpuscular Volume 82.4 fL (80-94); Mean Platelet Vol. 9.0 fl (6.2-12.0); NRBC Flagged by Analyzer 0 % (0-5); POSITIVE MORPHOLOGY YES; Platelet Count 129 K/mm3 (150-450); RBC Distribution Width CV 20.5 % (11.6-14.6); RBC Distribution Width SD 61.2 fl (35.1-43.9); Red Blood Count 3.91 M/mm3 (4.6-6.2); White Blood Count 8.2 K/mm3 (4.4-11.0)
--- OUTSIDE RECORDS SUMMARY | 2024-10-15 05:18 | XMS RPT_ITS | CCD ---
Author Organization [facility] Care Team Providers Care Sound Designer Name Role Phone DORCAS WATERS Enma Unavailable Unavailable Lucian Vicente Unavailable Unavailable Arsalan [...] Physician ARSALAN OCAMPO MD Primary Care Unavailshireen GERBER MD, DR PERFECTO Armas Attending Unavailable Natalya Dorsey RN Unavailable Dereje Herring MD Unavailable Arsalan Ocampo MD Primary Care Provider CATHERINE PERAZA Referring Unavailable ARSALAN OCAMPO Primary Care Unavailab ARSALAN Khan Primary Care Unavailab le HEATHERDORCAS PEARSON Attending Unavailab le PODLOGAR, CATHERINE Referring Unavailable BURSLEY, CHRISTOPHER B Primary Care Unavailab dutch HEATHERDORCAS PEARSON Referring Unavailab le BURSLEY, CHRISTOPHER B Primary Care Unavailab le HEATHERDORCAS PEARSON Referring Unavailab le Podlogar TISSUE TECHNICIAN.RANGE SCIENTIST, Catherine Unavailable ENDY CURRAN Attending Unavailable PODLOGAR, CATHERINE Referring Unavailable BURSLEY, CHRISTOPHER B Primary Care Unavailab le HUGHESROSEANNA Attending Unavailable PODLOGAR, CATHERINE Referring Unavailable BURSLEY, CHRISTOPHER B Primary Care Unavailab le HUGHES, ROSEANNA Braden Attending Unavailable PODLOGAR, CATHERINE Referring Unavailable BURSLEY, CHRISTOPHER B Primary Care Unavailab le ROSEANNA HUGHES Attending Unavailable PODLOGAR, CATHERINE Referring Unavailable BURSLEY, CHRISTOPHER B Primary Care Unavailab le PODLOGAR, CATHERINE Referring Unavailable BURSLEY, CHRISTOPHER B Primary Care Unavailab le HALLGREN, ENDY Braden Attending Unavailable PODLOGAR, CATHERINE Referring Unavailable BURSLEY, CHRISTOPHER B Primary Care Unavailab le HUGHESROSEANNA Attending Unavailable PODLOGAR, CATHERINE Referring Unavailable BURSLEY, CHRISTOPHER B Primary Care Unavailab le PODLOGAR, CATHERINE Referring Unavailable BURSLEY, CHRISTOPHER B Primary Care Unavailab le PODLOGAR, CATHERINE Referring Unavailable BURSLEY, CHRISTOPHER B Primary Care Unavailab le PODLOGAR, CATHERINE Referring Unavailable BURSLEY, CHRISTOPHER B Primary Care Unavailab le HALLGREN, ENDY Braden Attending Unavailable PODLOGAR, CATHERINE Referring Unavailable BURSLEY, CHRISTOPHER B Primary Care Unavailab le HALLGREN, ENDY Braden Attending Unavailable PODLOGAR, CATHERINE Referring Unavailable BURSLEY, CHRISTOPHER B Primary Care Unavailab dutch Hodges MD, Daesung Unavailable Janes TISSUE TECHNICIAN.RANGE SCIENTIST, Yasmine Unavailable Janes TISSUE TECHNICIAN.RANGE SCIENTIST, Yasmine Unavailable Vijaya NUNEZ, Dr. Dawn Primary Care Provider Dr. Augustin Carney MD Emergency Provider Jovanna NUNEZ, Dr. Ivan Puga Admit Provider [phone] Jovanna NUNEZ, Dr. Ivan Puga Attending Provider Jovanna NUNEZ, Dr. Ivan Puga Other Provider Janes GEORGE.RANGE SCIENTIST, Yasmine Unavailable Yvette NUNEZ, Dr. Bee Other Provider Yvette NUNEZ, Dr. Bee Attending Provider ARSALAN OCAMPO Primary Care Unavailab le ELLIS, TEE Referring Unavailable ARSALAN OCAMPO B Primary Care Unavailab le PODLOGLUBA, CATHERINE Attending Unavailable ARSALAN OCAMPO B Primary Care Unavailab le ELLIS, TEE Referring Unavailable ELIAN OCAMPOER B Primary Care Unavailab le CANDACE GUERRA Referring Unavailable ARSALAN OCAMPO B Primary Care Unavailab le SELF Referring Unavailable ARSALAN OCAMPO B Primary Care Unavailab le ABRAMOVICHDEREJE Referring Unavailable ELIAN OCAMPOER B Primary Care Unavailab le ARANDA, SANJEEV Referring Unavailable ARANDA, SANJEEV Referring Unavailable ELIAN OCAMPOER B Primary Care Unavailab le ARANDA, SANJEEV Referring Unavailable ELIAN OCAMPOER B Primary Care Unavailab le ABRAMOVICH, DEREJE Attending Unavailable ARSALAN OCAMPO B Primary Care Unavailab le ALNIBASILI, MADELAINE Attending Unavailable MADELAINE BRONSON Referring Unavailable ELIAN OCAMPOER B Primary Care Unavailab le BASHIR VARELA Referring Unavailable ARANDA, SANJEEV Referring Unavailable ELIAN OCAMPOER B Primary Care Unavailab le VIJAYA, ELIANER B Primary Care Unavailab le ABRAMOVICH, DEREJE Referring Unavailable ELIAN OCAMPOER B Primary Care Unavailab le ARANDA, SANJEEV Referring Unavailable FARIDALEY, NIYAHOPHER B Primary Care Unavailab le ABRAMOVICH, DEREJE Referring Unavailable NIYAH OCAMPOOPHER B Primary Care Unavailab le ARANDA, SANJEEV Referring Unavailable ABRAMOVICH, DEREJE Attending Unavailable ARSALAN OCAMPO B Primary Care Unavailab le ABRAMOVICH, DEREJE Referring Unavailable ELIAN OCAMPOER B Primary Care Unavailab le ABRAMOVICH, DEREJE Attending Unavailable ARSALAN OCAMPO B Attending Unavailab le ARSALAN OCAMPO B Primary Care Unavailab le ELIAN OACMPOER B Referring Unavailab le ELIAN OCAMPOER B Primary Care Unavailab le ELIAN OCAMPOER B Primary Care Unavailab le DEREJE HERRING Referring Unavailable ARSALAN OCAMPO B Primary Care Unavailab le ROSI, SANJEEV Referring Unavailable ARSALAN OCAMPO Primary Care Unavailab VICENTE Gates Attending Unavailable DEREJE HERRING Referring Unavailable ROSI, SANJEEV Referring Unavailable ELIAN OCAMPOER B Primary Care Unavailab le VIJAYA, ELIANER B Primary Care Unavailab le ABRDEREJE GARCIA Referring Unavailable ELIAN OCAMPOER B Primary Care Unavailab CANDACE Levi Attending Unavailable DORCAS CHAMPAGNE Referring Unavailab le ELIAN OCAMPOER B Primary Care Unavailab le ROSI, SANJEEV Referring Unavailable ARSALAN OCAMPO Primary Care Unavailab le ABRDEREJE GARCIA Referring Unavailable ELIAN OCAMPOER B Primary Care Unavailab le FAZEKASRICHIE Referring Unavailable RICHIE DEJESUS Attending Unavailable ARSALAN OCAMPO Primary Care Unavailab le ROSI, SANJEEV Referring Unavailable SURESH HODGES Attending Unavailable ARSALAN OCAMPO Primary Care Unavailab le ALNIEMI, MADELAINE Referring Unavailable ELIAN OCAMPOER B Primary Care Unavailab le ELIAN OCAMPOER B Primary Care Unavailab le DEREJE HERRING Referring Unavailable ROSI, SANJEEV Referring Unavailable ARSALAN OCAMPO B Primary Care Unavailab le VIJAYA, ELIANER B Primary Care Unavailab le SELF Referring Unavailable RICHIE DEJESUS Attending Unavailable ARSALAN OCAMPO Primary Care Unavailab le PODLOGAR, CATHERINE Referring Unavailable ELIAN OCAMPOER B Primary Care Unavailab le ARANDA, SANJEEV Referring Unavailable ELIAN OCAMPOER B Primary Care Unavailab le ROSI, SANJEEV Referring Unavailable ARSALAN OCAMPO B Primary Care Unavailab le DEREJE HERRING Referring Unavailable ARSALAN OCAMPO Primary Care Unavailab le DEREJE HERRING Referring Unavailable ELIAN OCAMPOER B Primary Care Unavailab le FAZEKASRICHIE Attending Unavailable ARSALAN OCAMPO B Primary Care Unavailab le ABRDEREJE GARCIA Referring Unavailable ELIAN OCAMPOER B Primary Care Unavailab le ABRAMOVICH, DEREJE Attending Unavailable DEREJE HERRING Referring Unavailable VIJAYA, ELIANER B Primary Care Unavailab le VIJAYA, ELIANER B Primary Care Unavailab le ABRAMFRAN, DEREJE Referring Unavailable VIJAYA, ELIANER B Primary Care Unavailab le JOHNAMFRAN, DEREJE Attending Unavailable SANJEEV ARANDA Referring Unavailable VIJAYA, ELIANER B Primary Care Unavailab le SELF Referring Unavailable SANJEEV ARANDA Referring Unavailable ELIAN OCAMPOER Ag Primary Care Unavailab le FARIDALEY, ELIANER B Primary Care Unavailab CATHERINE Mtz Attending Unavailable ARSALAN OCAMPO B Primary Care Unavailab SANJEEV Hardy Referring Unavailable RICHIE DEJESUS Referring Unavailable ARSALAN OCAMPO B Primary Care Unavailab MADELAINE Sorto Attending Unavailable VIJAYA, ARSALAN B Primary Care Unavailab dutch HERRING, DEREJE Referring Unavailable Ivan Nugent Admitting Unavailable Ivan Nugent Attending Unavailable Ivan Nugent Consulting Unavailable Vijaya, López Primary Care Unavailable Rohit Crawford Admitting Unavailable Vijaya, López Primary Care Unavailable Rohit Crawford Attending Unavailable Yvette, Rohit Attending Unavailable Vijaya, López Primary Care Unavailable Rohit Crawford Referring Unavailable Rubén Liu Attending Unavailable Vijaya, López Primary Care Unavailable Ivan Nugent Admitting Unavailable Ivan Nugent Attending Unavailable Rohit Crawford Consulting Unavailable Bursley, López Primary Care Unavailable Bursley, López Referring Unavailable Faridaley, López Primary Care Unavailable Derrek Hopper Attending Unavailable Rohit Crawford Attending Unavailable Ivan Nugent Referring Unavailable Rohit Crawford Consulting Unavailable Yvette, Rohit Attending Unavailable Rohit Crawford Consulting Unavailable Faridaley, López Primary Care Unavailable Yvette, Rohit Attending Unavailable Yvette, Rohit Consulting Unavailable Vijaya, López Primary Care Unavailable Rohit Crawford Admitting Unavailable Jovanna NUNEZ, Dr. Ivan Puga Referring Provider Dr. López Ocampo MD Referring Provider Luly NUNEZ, Dr. Freeman Attending Provider [phone] Allergies Allergy Classification Reported Allergen(s) Allergy Type Date of Onset Reaction(s) Facility (2 sources) OTHER; Translations: [OTHER] Propensity to adverse reactions (disorder) 11-30-19 [facility] Repository (20 sources) envirornmental [Other] Propensity to adverse reactions 11-30-19 Intolerance [facility] Work Phone: (20 sources) Ragweed pollen; Translations: [RAGWEED POLLEN] Propensity to adverse reactions to drug 06-11-19 Other: See Comments [facility] Work Phone: Medications Current Medications Medication Drug Class(es) Dates Sig (Normalized) Sig (Original) abiraterone acetate 250 mg oral tablet (20 sources) Cytochrome P450 17A1 Inhibitor Start: 12-11-2023 take 1 tablet by mouth once daily Abiraterone 250 mg tablet Active 1000 mg PO DAILY December 11, 2023 12:00am prostate cancer Start: 04-22-2023 End: 09-20-2024 abiraterone 250 mg tablet Indications: Prostate cancer metastatic to bone (HCC) TAKE 4 TABLETS ONCE DAILY ON AN EMPTY STOMACH 1 HOUR BEFORE OR 2 HOURS AFTER A MEAL 120 tablet 5 09/20/2024 Active Start: 01-16-2023 take 4 tablets by mo uth once daily 1 hour(s) after mealtime abiraterone [...] on above: TAKE 4 TABLETS BY MO UTH ONCE DAILY ON AN EMPTY STOMACH AT [...] tablet (20 sources) HMG-CoA Reductase Inhibitor Start: 03-18-20 End: 03-15-20 25 take 1 tablet by mouth at bedtime Atorvastatin 20 mg tablet Active 20 mg PO AT BEDTIME December 11, 2023 12:00am cholesterol Comment on above: Take 1 tablet by divya daily at bedtime. For cholesterol. calcium carbonate 1250 mg / cholecalciferol 125 unt oral tablet (1 source) Vitamin D take 1 tablet by mouth twice daily Calcium Carb-Cholecalciferol (Calcium 500 + D) 500-125 [...] 1 tablet by divya th twice daily. cefdinir 300 mg oral capsule (2 sources) Cephalosporin Antibacterial Start: 09-23-19 25 take 1 capsule by mouth twice daily Cefdinir 300 mg capsule Active 300 mg PO TWICE A DAY September 22, 2024 12:00am cimetidine 200 mg oral tablet (20 sources) Histamine-2 Receptor Antagonist Start: 02-05-20 take 1 tablet by mouth twice daily at mealtime Cimetidine (Tagamet Hb) 200 mg tablet Active 200 mg PO TWICE A DAY February 05, 2024 12:00am administer with meals Comment on above: Take 200 mg by mouth twice daily. darbepoetin dagmar in albumn john (ARANESP INJECTION) (20 sources) darbepoetin dagmar in albumn john (ARANESP INJECTION) by INJECTION(UNSPECIFI ED PARENTERAL ROUTES) route every 4 weeks. PRN Active darbepoetin dagmar in albumn john (ARANESP INJECTION) by INJECTION(UNSPECIFIED PARENTERAL ROUTES) route every 4 weeks. PRN 0 Active darbepoetin dagmar in polysorbat (3 sources) Start: 09-18-2024 darbepoetin dagmar in polysorbat Active 0 IV .COMPLEX September 18, 2024 12:00am intravenously EVERY MONTH; dexamethasone 4 mg oral tablet (20 sources) [...] 12/05/2023 Active ibuprofen 200 mg oral capsule (16 sources) Nonsteroidal Anti-inflammatory Drug Ibuprofen 200 mg cap Take by mouth every 6 hours as needed. Active LEUPROLIDE ACETATE, 6 MONTH, SC (1 source) LEUPROLIDE ACETATE, 6 MONTH, SC Inject under the skin every 6 months. May 05/2022 0 Active predniSONE 5 mg oral tablet (20 sources) Start: 10-26-2021 End: 05-18-2024 take 1 tablet by mouth twice daily Prednisone 5 mg tablet Active 5 mg PO TWICE A DAY December 11, 2023 12:00am prostate Start: 05-29-2021 End: 07-23-2021 take 1 tablet [...] 72 hr scopolamine 0.0139 mg/hr transdermal system (20 sources) Anticholinergic Start: 05-18-19 scopolamine (TRANSDERM-SCOP) patch 1.5 mg/72 hr (delivers 1 mg over 3 days) Indications: Motion sickness, initial encounter Apply 1 Patch as directed every 72 hours. 4 Patch 05/18/2024 Active tamsulosin hydrochloride 0.4 mg oral capsule (20 sources) alpha-Adrenergic Jennifer Start: 01-20-20 End: 11-17-19 take 1 capsule by mouth once daily Tamsulosin 0.4 mg capsule Active 0.4 mg PO DAILY December 11, 2023 12:00am prostate Comment on above: TAKE 1 CAPSULE BY MO [facility] EVERY DAY Take 1 capsule by mo [facility] once daily. Take 1 capsule by mo ut daily at bedtime for 90 doses. Completed/Discontinued [...] 300 mcg, SUBCUTANEOUS, ONCE, 1 dose, On 09/08/24 at 1100, PROTECT FROM LIGHT. REFRIGERATE Start: [...] 300 mcg, SUBCUTANEOUS, ONCE, 1 dose, On 03/17/24 at 1000, PROTECT FROM LIGHT. REFRIGERATE Start: [...] dose, On Fri02/18/24 at 1000, REFRIGERATE Start: 02-05-2024 End: 09-18-2024 Denosumab (Xgeva) 120 mg/1.7 mL (70 mg/mL) solution Discontinued 120 mg SC .monthly February 05, 2024 12:00am September 18, 2024 2:02pm Start: 01-21-2024 End: 01-21-2024 inject 1 dose [...] mg/ml topical cream (12 sources) Corticosteroid Start: 2021 End: 2022 fluocinonide (LIDEX) 0.05 % cream Indications: Notalgia paresthetica Apply to affected skin r back twice weekly prn flare 60 g 1 11/23/2021 04/17/2022 Discontinued Comment on above: Apply to affected sk in r back twice weekly prn flare iv contrast (will be provided with radiology test) (20 sources) Start: 2024 End: 2024 inject 1 dose intravenously once iv contrast (will be provided with radiology test) Indications: Prostate cancer metastatic to bone (HCC) MRI Brain Inject, intravenously, once for 1 dose.No IV access, insert saline lock prior to beginning of sedation, infusion, injection of imaging exam.Discontinue saline lock post exam. If Pt. has a central line or IVAD, may access for administration according to line specific nursing protocol.Once exam is complete flush line and de-access according to line specific nursing protocol in the MR contrast administration guidelines link 1 each 09/24/2024 09/25/2024 Start: 12-05-2023 End: 12-06-2023 inject 1 dose [...] in the MR contrast administration guidelines link. 0.375 ml leuprolide acetate 120 mg/ml prefilled syringe (20 sources) Gonadotropin Releasing Hormone Receptor Agonist Start: End: inject 1 dose by subcutaneous injection once 45 mg, SUBCUTANEOUS, ONCE, 1 dose, On Fri09/10/24 at 1330, Hazardous Chemotherapy Drug: Use appropriate PPE. Start: 03-17-2024 End: 03-17-2024 inject 1 dose by subcutaneous injection once 45 mg, SUBCUTANEOUS, ONCE, 1 dose, On Fri03/17/24 at 1000, Hazardous Chemotherapy Drug: Use appropriate PPE. Start: 02-05-2024 Leuprolide Praneeth may (6 Month) (Eligard (6 Month)) 45 mg syringe Active 45 mg SC .COMPLEX February 05, 2024 12:00am 45 mg subcutaneously EVERY 6 MONTHS; Start: 10-02-2023 End: 10-02-2023 leuprolide acetate (6 [...] Inject subcutaneousl y once every 6 months. oxyCODONE hydrochloride 5 mg oral tablet (3 sources) Opioid Agonist Start: 02-06-20 End: 02-16-20 take 1 tablet by mouth every six hours as needed for pain Oxycodone 5 mg Tablet Discontinued 5 mg PO EVERY 6 HOURS NEEDED as needed for Pain Score 6-10 10 3 0 February 06, 2024 February 16, 2024 3:03pm Status post laparoscopic appendectomy Acquired absence of other specified parts of digestive tract Problems Active Problems Problem Classification Problem Date Documented Date Episodic/Chronic Abdominal pain (11 sources) Epigastric pain; Translations: [Epigastric pain] Onset: 4 02-27-2022 Episodic Acute and unspecified renal failure (7 sources) Acute renal failure syndrome; Translations: [Acute kidney failure, unspecified] Onset: 5 09-18-2024 Episodic Anal and rectal conditions (1 source) Disorder of large intestine; Translations: [Other specified diseases of anus and rectum] 11-19-2022 Episodic Appendicitis and other appendiceal conditions (4 sources) Acute appendicitis; Translations: [Unspecified acute appendicitis] Onset: 4 02-14-2024 Episodic Biliary tract disease (4 sources) Cholangitis; Translations: [Other cholangitis] 09-28-2024 Chronic Biliary tract disease (5 sources) Acute cholecystitis without calculus; Translations: [Acute cholecystitis] Onset: 5 09-21-2024 Episodic Cancer of prostate (20 sources) Prostate cancer metastatic to bone; Translations: [Malignant neoplasm of prostate] Onset: Chronic Cancer of prostate (7 sources) History of malignant neoplasm of prostate; Translations: [Personal history of malignant neoplasm of prostate] 02-05-2024 Episodic Coagulation and hemorrhagic disorders (1 source) Senile purpura; Translations: [Other nonthrombocytopenic purpura] 11-27-2022 Episodic Complications of surgical procedures or medical care (6 sources) Non-healing surgical wound; Translations: [Other complications of procedures, not elsewhere classified, subsequent encounter] 09-22-2024 Episodic Conditions associated with dizziness or vertigo (1 source) Dizziness and giddiness; Translations: [Dizziness and giddiness] Onset: Episodic Deficiency and other anemia (3 sources) Anemia; Translations: [Anemia, unspecified] 02-06-2024 Episodic Disorders of lipid metabolism (20 sources) Mixed hyperlipidemia; Translations: [Mixed hyperlipidemia] Onset: 4 03-18-2023 Chronic Esophageal disorders (20 sources) Gastro-esophageal reflux disease with esophagitis; Translations: [Gastroesophageal reflux disease with esophagitis] Onset: 7 10-09-2016 Chronic Fluid and electrolyte disorders (3 sources) Dehydration; Translations: [Dehydration] 09-18-2024 Episodic Gastritis and duodenitis (1 source) Chronic superficial gastritis; Translations: [Chronic superficial gastritis without bleeding] Chronic Hyperplasia of prostate (20 sources) Benign prostatic hypertrophy with outflow obstruction; Translations: [Benign prostatic hyperplasia with lower urinary tract symptoms] Onset: 7 Resolved: 7 01-03-2017 Chronic Nausea and vomiting (3 sources) Nausea and vomiting; Translations: [Nausea with vomiting, unspecified] 02-14-2024 Episodic Nonspecific chest pain (6 sources) Chest pain; Translations: [Chest pain, unspecified] Onset: 4 06-11-2023 Episodic Nutritional deficiencies (2 sources) Vitamin D deficiency; Translations: [Vitamin D deficiency, unspecified] Onset: 5 08-09-2024 Chronic Nutritional deficiencies (2 sources) Iron deficiency; Translations: [Iron deficiency] Onset: 5 08-09-2024 Episodic Open wounds of head; neck; and trunk (4 sources) Open wound of scalp ; Translations: [Unspecified open wound of scalp, initial encounter] 10-12-2024 Episodic Other aftercare (1 source) Wound ; Translations: [Encounter for other specified surgical aftercare] 09-22-2024 Episodic Other and unspecified benign neoplasm (3 sources) Senile angioma; Translations: [Hemangioma of skin and subcutaneous tissue] Episodic Other and unspecified benign neoplasm (3 sources) Multiple benign melanocytic nevi ; Translations: [Melanocytic nevi, unspecified] Episodic Other and unspecified benign neoplasm (1 source) History of polyp of colon; Translations: [Personal history of colonic polyps] 02-27-2022 Episodic Other circulatory disease (3 sources) Low blood pressure; Translations: [Hypotension, unspecified] 09-18-2024 Episodic Other hematologic conditions (1 source) History [...] skin] Episodic Other non-epithelial cancer of skin (12 sources) History of malignant neoplasm of skin; Translations: [Personal history of other malignant neoplasm of skin] Onset: 5 Episodic Other screening for suspected conditions (not mental disorders or infectious disease) (20 sources) Raised prostate specific antigen; Translations: [Elevated prostate specific antigen [PSA]] Onset: 7 01-03-2017 Episodic Other skin disorders (3 sources) Seborrheic keratosis; Translations: [Other seborrheic keratosis] Episodic Other skin disorders (3 sources) Lentiginosis; Translations: [Other melanin hyperpigmentation] Episodic Other upper respiratory disease (20 sources) Allergic rhinitis; Translations: [Allergic rhinitis, unspecified] 11-29-2005 Chronic Residual codes; unclassified (4 sources) Acquired absence of other specified parts of digestive tract; Translations: [Status post laparoscopic appendectomy] Onset: 4 02-06-2024 Episodic Residual codes; unclassified (2 sources) History of squamous cell carcinoma in situ; Translations: [Other specified postprocedural states] 10-14-2024 Episodic Secondary malignancies (20 sources) Secondary malignant neoplasm of bone; Translations: [Secondary malignant neoplasm of bone] Onset: 2 Chronic Secondary malignancies (2 sources) Secondary malignant neoplasm of bone; Translations: [Bone metastasis (HCC)] Onset: 2 Chronic Septicemia (except in labor) (9 sources) Sepsis; Translations: [Sepsis, unspecified organism] Onset: 5 09-18-2024 Episodic Spondylosis; intervertebral disc disorders; other back problems (20 sources) Degeneration of lumbar intervertebral disc; Translations: [Other intervertebral disc degeneration, lumbar region] Onset: 4 Resolved: 6 07-13-2013 Chronic Spondylosis; intervertebral disc disorders; other back problems (20 sources) Spinal stenosis of lumbar region; Translations: [Spinal stenosis, lumbar region without neurogenic claudication] Onset: 4 Resolved: 5 10-09-2016 Episodic Unclassified (1 source) Unknown / UNK(Unknown) Onset: 7 Unclassified (2 sources) Unless you prefer a [facility] physician Unclassified (1 source) Acute left-sided low back pain, unspecified whether sciatica present; Translations: [Acute left-sided low back pain, unspecified whether sciatica present] Onset: 4 Past or Other Problems Problem Classification Problem Date Documented Date Episodic/Chronic Allergic reactions (20 sources) Solar degeneration; Translations: [Other skin changes due to chronic exposure to nonionizing radiation] Onset: 09-30-2012 Resolved: 07-18-2016 09-30-2012 Episodic Deficiency and other anemia (20 sources) Microcytic anemia; Translations: [Iron deficiency anemia, unspecified] Onset: 03-10-2008 12-07-2020 Episodic Deficiency and other anemia (2 sources) Anemia, unspecified; Translations: [Anemia, unspecified] Onset: 02-10-2024 Episodic Gastritis and duodenitis (20 sources) Acute [...] [Right hip pain] Onset: 02-23-2024 Episodic Other skin disorders (20 sources) Actinic [...] screening for depression] Onset: 03-10-2024 03-10-2024 Episodic Syncope (20 sources) Vasovagal syncope; Translations: [Syncope and collapse] Onset: 10-09-2016 10-09-2016 Episodic Unclassified (1 source) Benign prostatic hyperplasia with lower urinary tract symptoms Onset: 02-14-2017 Results Test Name Value Interpretation Reference Range Facility Culture, Blood (WB)on 2024 CUB Blood cultures x2, f rom two different sites GRAM STAIN= GRAM POSITIVE COCCI IN CLUSTERS Culture, Blood (WB) RESULTS CALLED TO LAILA 09/19/24 0913 Allison Dixon. REPORT READ BACK BY JANET. Culture, Blood (WB) #2 IDENTIFICATION AND SUSCEPTIBILITY PERFORMED AT [facility] Streptococcus intermedius Amount Growth Growth Haemophilus parainfluenzae Haemophilus parainfluenzae Streptococcus intermedius: REACTION Ampicillin Islt DAILY <=0.25 S Penicillin G Islt DAILY <=0.06 Cefotaxime Islt DAILY <=0.12 S cefTRIAXone Islt DAILY <=0.12 S Erythromycin Islt DAILY 1 R Linezolid Islt DAILY <=2 S Vancomycin Islt DAILY 0.25 S Haemophilus parainfluenzae: REACTION Ampicillin Islt DAILY S Ampicillin+Sulbac Islt DAILY cefTRIAXone Islt DAILY S Chloramphen Islt DAILY S levoFLOXacin Islt DAILY S Meropenem Islt DAILY S Tetracycline Islt DAILY S TMP SMX Islt DAILY S Cefuroxime Islt DAILY S Normal [facility] Comment on above: Performed By: #### L 100.0100, L500.4050, M200.1000, L300.3900, L503.6005, L300.4310 ####[facility] [id number] [place], [address] CNNURSEon 10-01-2024 CNNURSE Normal [facility] CNPNon 10-01-2024 CNPN Normal [facility] Basic metabolic 2000 panelon 09-30-2024 Anion gap [Moles/Vol] 11 mmol/L Normal 8-15 [facility] Comment on above: Order Comment: Speci men Type: BLOOD SPECIMENOrdering Facility: [facility] Address: [address] [place] [address] Performed By: #### 2 4321-2 ####[facility]OSPITALHEAVENA [id number] [place] [address] [place] Calcium [Mass/Vol] 9.2 mg/dL Normal 8.5-10.2 [facility] Comment on above: Order Comment: Speci men Type: BLOOD SPECIMENOrdering Facility: [facility] Address: [address] [place] [address] Performed By: #### 2 4321-2 ####[facility] MILLWNCLIA [id number] [place] [address] [place] Chloride [Moles/Vol] 102 mmol/L Normal 98-107 [facility] Comment on above: Order Comment: Speci men Type: BLOOD SPECIMENOrdering Facility: [facility] Address: [address] [place] [address] Performed By: #### 2 4321-2 ####[facility] MILLTOWNCLIA [id number] [place] [address] [place] CO2 [Moles/Vol] 23 mmol/L Normal 22-30 [facility] Comment on above: Order Comment: Speci men Type: BLOOD SPECIMENOrdering Facility: [facility] Address: [address] [place] [address] Performed By: #### 2 4321-2 ####[facility] BIENVENIDOHOUSTONANGELICAShireen [id number] [place] [address] [place] Creatinine [Mass/Vol] 1.16 mg/dL Normal 0.73-1.22 [facility] Comment on above: Order Comment: Speci men Type: BLOOD SPECIMENOrdering Facility: [facility] Address: [address] [place] [address] Performed By: #### 2 4321-2 ####[facility] [id number] [place] [address] [place] Creatinine and Glomerular filtration rate.predicted panel (S/P/Bld) 67 mL/min/1.73m??? Normal >=60 [facility] Comment on above: Order Comment: Speci men Type: BLOOD SPECIMENOrdering Facility: [facility] Address: [address] [place] [address] Result Comment: Beth mated Glomerular Filtration Rate [...] actual GFR. Performed By: #### 2 4321-2 ####[facility] [id number] [place] [address] [place] Glucose [Mass/Vol] 104 mg/dL High 74-99 [facility] Comment on above: Order Comment: Speci men Type: BLOOD SPECIMENOrdering Facility: [facility] Address: [address] [place] [address] Result Comment: The [place] Diabetes Association (ADA) provides guidance for cutoff [...] Standards of Medical Care in Diabetes 2016, [place] Diabetes Association. Diabetes Care. 2016.39(Suppl 1). Performed By: #### 2 4321-2 ####[facility] MILLTOWMTLIA [id number] [place] [address] [place] Potassium [Moles/Vol] 4.3 mmol/L Normal 3.7-5.1 [facility] Comment on above: Order Comment: Speci men Type: BLOOD SPECIMENOrdering Facility: [facility] Address: [address] [place] [address] Performed By: #### 2 4321-2 ####[facility]ATIONLIA [id number] [place] [address] [place] Sodium [Moles/Vol] 136 mmol/L Normal 136-144 [facility] Comment on above: Order Comment: Speci men Type: BLOOD SPECIMENOrdering Facility: [facility] Address: [address] [place] [address] Performed By: #### 2 4321-2 ####[facility] MILLWNCLIA [id number] [place] [address] [place] Urea nitrogen [Mass/Vol] 28 mg/dL High 9-24 [facility] Comment on above: Order Comment: Speci men Type: BLOOD SPECIMENOrdering Facility: [facility] Address: [address] [place] [address] Performed By: #### 2 4321-2 ####[facility] HOSPITALWNCLIA [id number] [place] [address] [place] CBC W Auto Differential pane l (Bld)on 09-30-2024 Anisocytosis Ql (Bld) Present Normal [facility] Comment on above: Order Comment: Speci men Type: BLOOD SPECIMENOrdering Facility: [facility] Address: [address] [place] [address] Performed By: #### 5 7021-8 ####[facility] MILLTOWNCLIA [id number] [place] [address] [place] AMERICASELECT [facility] LABCLIA [id number] [facility] [place] [address] [place]#### 43902-2 ####[facility] LABCLIA [id number] [facility] [address], [place] [address] [place] Basophils (Bld) [#/Vol] 10*3/uL Normal <0.11 [facility] Comment on above: Order Comment: Speci men Type: BLOOD SPECIMENOrdering Facility: [facility] Address: [address] [place] [address] Performed By: #### 5 7021-8 ####[facility] MILLWNCLIA [id number] [place] [address] [place] AMERICASELECT [facility] LABCLIA [id number] [facility] [place] [address] [place]#### 12929-3 ####[facility] LABCLIA [id number] [facility] [address], [facility] [place] Basophils/100 WBC (Bld) 0.1 % Normal [facility] Comment on above: Order Comment: Speci men Type: BLOOD SPECIMENOrdering Facility: [facility] Address: [address] [place] [address] Performed By: #### 5 7021-8 ####[facility] MILLTOWNCLIA [id number] [place] [address] [place] AMERICASELECT [facility] LABCLIA [id number] [address] [place] [address] [place]#### 85134-7 ####[facility] LABCLIA [id number] [address] [place] [address] [place] Dacrocytes LM Ql (Bld) Few Normal [facility] Comment on above: Order Comment: Speci men Type: BLOOD SPECIMENOrdering Facility: [facility] Address: [address] [place], [place] [address] Performed By: #### 5 7021-8 ####[facility] ERA [id number] [place] [address] [place] [facility] LABCLIA [id number] [address], [place] [facility] [place]#### 33504-9 ####[facility] LABCLIA [id number] [address] [place] [address] [place] Differential cell count method Nom (Bld) Auto Normal [facility] Comment on above: Order Comment: Speci men Type: BLOOD SPECIMENOrdering Facility: [facility] Address: [address] [place], [place] [address] Performed By: #### 5 7021-8 ####[facility] ERA [id number] [place] [address] [place] AMERICASELECT [facility] LABCLIA [id number] [address] [place] [address] [place]#### 84026-8 ####[facility] LABCLIA [id number] [address] [place] [address] [place] Eosinophils (Bld) [#/Vol] 0.09 10*3/uL Normal <0.46 [facility] Comment on above: Order Comment: Speci men Type: BLOOD SPECIMENOrdering Facility: [facility] Address: [facility] [place] [address] Performed By: #### 5 7021-8 ####[facility] MILLTOWNCLIA [id number] [place] [address] [place] [facility] LABCLIA [id number] [facility]D [facility] HOSPITALK [address] [place] [address] [place]#### 98697-4 ####[facility] LABCLIA [id number] [facility] HOSPITALK [address] [place] [address] [place] Eosinophils/100 WBC (Bld) 1.3 % Normal [facility] Comment on above: Order Comment: Speci men Type: BLOOD SPECIMENOrdering Facility: [facility] Address: [address] [place], [place] [address] Performed By: #### 5 7021-8 ####[facility] HOSPITALWNCLIA [id number] [place] [address] [place] [facility] LABCLIA [id number] [facility]ENTERK [address], [place] [address] [place]#### 56437-7 ####[facility] LABCLIA [id number] [facility] [address] [place] [address] [place] Erythrocyte distribution width (RBC) [Ratio] 21.1 % High 11.5-15.0 [facility] Comment on above: Order Comment: Speci men Type: BLOOD SPECIMENOrdering Facility: [facility] Address: [address] [place] [address] Performed By: #### 5 7021-8 ####[facility] MILLWNCLIA [id number] [place] [address] [place] AMERICASELECT [facility] LABCLIA [id number] [facility] [address] [place] [address] [place]#### 82171-3 ####[facility] LABCLIA [id number] [place] [address] [place] Hematocrit (Bld) [Volume fraction] 31.0 % Low 39.0-51.0 [facility] Comment on above: Order Comment: Speci men Type: BLOOD SPECIMENOrdering Facility: [facility] Address: [address] [place] [address] Performed By: #### 5 7021-8 ####[facility] HOSPITALWMTLIA [id number] [address] STATES OF [facility] LABCLIA [id number] [place] [address] [place]#### 31423-4 ####[facility] LABCLIA [id number] [place] [address] [place] Hemoglobin (Bld) [Mass/Vol] 9.5 g/dL Low 13.0-17.0 [facility] Comment on above: Order Comment: Speci men Type: BLOOD SPECIMENOrdering Facility: [facility] Address: [address] [place] [address] Performed By: #### 5 7021-8 ####[facility] ERA [id number] [address] STATES OF [facility] LABCLIA [id number] [address] STATES OF [place]#### 87070-1 ####[facility] LABCLIA [id number] [place] [address] [place] Immature granulocytes (Bld) [#/Vol] 0.03 10*3/uL Normal <0.10 [facility] Comment on above: Order Comment: Speci men Type: BLOOD SPECIMENOrdering Facility: [facility] Address: [address] [place] [address] Performed By: #### 5 7021-8 ####[facility] MILLTOWNCLIA [id number] [place] [address] [place] [facility] LABCLIA [id number] [facility] [address] [place] [address] [place]#### 42885-7 ####[facility] LABCLIA [id number] [facility]PITALK [address] [place] [address] [place] Immature granulocytes/100 WBC (Bld) 0.4 % Normal [facility] Comment on above: Order Comment: Speci men Type: BLOOD SPECIMENOrdering Facility: [facility] Address: [address] [place] [address] Performed By: #### 5 7021-8 ####[facility] HOSPITALWNCLIA [id number] [place] [address] [place] [facility] LABCLIA [id number] [facility] [address], [place] [facility] [place]#### 01889-3 ####[facility] LABCLIA [id number] [facility] [address], [place] [address] [place] Lymphocytes (Bld) [#/Vol] 1.74 10*3/uL Normal 1.00-4.00 [facility] Comment on above: Order Comment: Speci men Type: BLOOD SPECIMENOrdering Facility: [facility] Address: [address] [place] [address] Performed By: #### 5 7021-8 ####[facility] MILLTOWNCLIA [id number] [place] [address] [place] [facility] LABCLIA [id number] [facility] [address] [place] [address] [place]#### 25937-7 ####[facility] LABCLIA [id number] [place] [address] [place] Lymphocytes/100 WBC (Bld) 26.1 % Normal [facility] Comment on above: Order Comment: Speci men Type: BLOOD SPECIMENOrdering Facility: [facility] Address: [address] [place] [address] Performed By: #### 5 7021-8 ####[facility] FOUNDATIONLIA [id number] [address] STATES OF [facility] LABCLIA [id number] [place] [address] [place]#### 92083-9 ####[facility] LABCLIA [id number] [place] [address] [place] MCH (RBC) [Entitic mass] 25.1 pg Low 26.0-34.0 [facility] Comment on above: Order Comment: Speci men Type: BLOOD SPECIMENOrdering Facility: [facility] Address: [address] [place] [address] Performed By: #### 5 7021-8 ####[facility] ERA [id number] [address] STATES OF [facility] LABCLIA [id number] [place] [address] [place]#### 05190-6 ####[facility] LABCLIA [id number] [place] [address] [place] MCHC (RBC) [Mass/Vol] 30.6 g/dL Normal 30.5-36.0 [facility] Comment on above: Order Comment: Speci men Type: BLOOD SPECIMENOrdering Facility: [facility] Address: [address] [place] [address] Performed By: #### 5 7021-8 ####[facility] ERA [id number] [place] [address] [place] [facility] LABCLIA [id number] [facility]ITALK [address], [facility] [place]#### 44155-6 ####[facility] LABCLIA [id number] [facility] [id number] [address] [place] MCV (RBC) [Entitic vol] 81.8 fL Normal 80.0-100.0 [facility] Comment on above: Order Comment: Speci men Type: BLOOD SPECIMENOrdering Facility: [facility] Address: [address] [place] [address] Performed By: #### 5 7021-8 ####[facility] HOSPITALWNCLIA [id number] [address] STATES OF [facility] LABCLIA [id number] [facility] [address], [place] [address] [place]#### 08339-1 ####[facility] LABCLIA [id number] [facility] [address], [facility] [place] Monocytes (Bld) [#/Vol] 0.35 10*3/uL Normal <0.87 [facility] Comment on above: Order Comment: Speci men Type: BLOOD SPECIMENOrdering Facility: [facility] Address: [address] [place] [address] Performed By: #### 5 7021-8 ####[facility] HOSPITALWNCLIA [id number] [place] [address] [place] [facility] LABCLIA [id number] [facility] [address], [facility] [place]#### 56508-5 ####[facility] LABCLIA [id number] [facility]OSPITALK [address] [place] [address] [place] Monocytes/100 WBC (Bld) 5.2 % Normal [facility] Comment on above: Order Comment: Speci men Type: BLOOD SPECIMENOrdering Facility: [facility] Address: [address] [place] [address] Performed By: #### 5 7021-8 ####[facility] MILLTOWNCLIA [id number] [place] [address] [place] AMERICASELECT [facility] LABCLIA [id number] [place] [facility] [address] [place] [address] [place]#### 80797-1 ####[facility] LABCLIA [id number] [facility]OSPITALK [address] [place] [address] [place] Neutrophils (Bld) [#/Vol] 4.45 10*3/uL Normal 1.45-7.50 [facility] Comment on above: Order Comment: Speci men Type: BLOOD SPECIMENOrdering Facility: [facility] Address: [address] [place] [address] Performed By: #### 5 7021-8 ####[facility] MILLTOWNCLIA [id number] [place] [address] [place] [facility] LABCLIA [id number] [facility] [address] [place] [address] [place]#### 20173-9 ####[facility] LABCLIA [id number] [facility]ALK [address] [place] [address] [place] Neutrophils/100 WBC (Bld) 66.9 % Normal [facility] Comment on above: Order Comment: Speci men Type: BLOOD SPECIMENOrdering Facility: [facility] Address: [address] [place], [place] [address] Performed By: #### 5 7021-8 ####[facility] MILLTOWNCLIA [id number] [place] [address] [place] AMERICASELECT [facility] LABCLIA [id number] [facility]ALK [id number], [place] [address] [place]#### 10011-1 ####[facility] LABCLIA [id number] [place] [address] [place] Nucleated RBC (Bld) [#/Vol] 10*3/uL Normal <0.01 [facility] Comment on above: Order Comment: Speci men Type: BLOOD SPECIMENOrdering Facility: [facility] Address: [address] [place] [address] Performed By: #### 5 7021-8 ####[facility] ERA [id number] [address] STATES OF [facility] LABCLIA [id number] [place] [address] [place]#### 51838-5 ####[facility] LABIA [id number] [place] [address] [place] Nucleated RBC/100 WBC (Bld) [Ratio] 0.0 /100 WBC Normal [facility] Comment on above: Order Comment: Speci men Type: BLOOD SPECIMENOrdering Facility: [facility] Address: [address] [place] [address] Performed By: #### 5 7021-8 ####[facility] ERA [id number] [address] STATES OF [facility] LABCLIA [id number] [place] [address] [place]#### 92741-6 ####[facility] LABIA [id number] [place] [address] [place] Ovalocytes LM Ql (Bld) Few Normal [facility] Comment on above: Order Comment: Speci men Type: BLOOD SPECIMENOrdering Facility: [facility] Address: [address] [place] [address] Performed By: #### 5 7021-8 ####[facility] MILLTOWNCLIA [id number] [address] LABCLIA [id number] [place] [address] [place]#### 44772-6 ####[facility] LABCLIA [id number] [place] [address] [place] Platelet mean volume (Bld) [Entitic vol] 8.8 fL Low 9.0-12.7 [facility] Comment on above: Order Comment: Speci men Type: BLOOD SPECIMENOrdering Facility: [facility] Address: [address] [place] [address] Performed By: #### 5 7021-8 ####[facility]ITALNCLIA [id number] [address] LABCLIA [id number] [address] STATES OF [place]#### 91646-9 ####[facility] LABCLIA [id number] [place] [address] [place] Platelets (Bld) [#/Vol] 332 10*3/uL Normal 150-400 [facility] Comment on above: Order Comment: Speci men Type: BLOOD SPECIMENOrdering Facility: [facility] Address: [address] [place] [address] Result Comment: No c lot detected. Performed By: #### 5 7021-8 ####[facility] HOSPITALWNCLIA [id number] [address] LABCLIA [id number] [place] [address] [place]#### 33410-2 ####[facility] LABCLIA [id number] [address] [place] [address] [place] Platelets Estimate (Bld) [#/Vol] Adequate Normal [facility] Comment on above: Order Comment: Speci men Type: BLOOD SPECIMENOrdering Facility: [facility] Address: [address] [place] [address] Performed By: #### 5 7021-8 ####[facility]ITALNCLIA [id number] [place] [address] [place] AMERICASE[facility] LABCLIA [id number] [address] [place] [address] [place]#### 74853-5 ####[facility] LABCLIA [id number] [address] [place] [address] [place] Polychromasia LM Ql (Bld) Slight Normal [facility] Comment on above: Order Comment: Speci men Type: BLOOD SPECIMENOrdering Facility: [facility] Address: [address] [place] [address] Performed By: #### 5 7021-8 ####[facility] ERA [id number] [place] [address] [place] AMERICASE[facility] LABCLIA [id number] [address], [facility] [place]#### 77663-2 ####[facility] LABCLIA [id number] [address] [place] [address] [place] RBC (Bld) [#/Vol] 3.79 10*6/uL Low 4.20-6.00 [facility] Comment on above: Order Comment: Speci men Type: BLOOD SPECIMENOrdering Facility: [facility] Address: [address] [place], [place] [address] Performed By: #### 5 7021-8 ####[facility]ATIONLIA [id number] [place] [address] [place] [facility] LABCLIA [id number] [address], [place] [address] [place]#### 95782-3 ####[facility] LABCLIA [id number] [facility] [address] [place] [address] [place] RBC FRAGMENTS Few Abnormal None Seen [facility] Comment on above: Order Comment: Speci men Type: BLOOD SPECIMENOrdering Facility: [facility] Address: [address] [place] [address] Performed By: #### 5 7021-8 ####[facility] ERA [id number] [address] STATES OF [facility] LABCLIA [id number] [address], [place] [address] [place]#### [address]-2 ####[facility] LABCLIA [id number] [address], [place] [address] [place] RED CELL MORPH Reviewed: see result s of individual morphologies Normal [facility] Comment on above: Order Comment: Speci men Type: BLOOD SPECIMENOrdering Facility: [facility] Address: [address] [place] [address] Performed By: #### 5 7021-8 ####[facility] ERA [id number] [place] [address] [place] [facility]ASE[facility] [place] LABCLIA [id number] [address], [place] [address] [place]#### [address]38[address]-3 ####[facility] LABCLIA [id number] [address] [place] [address] [place] WBC (Bld) [#/Vol] 6.67 10*3/uL Normal 3.70-11.00 [facility] Comment on above: Order Comment: Speci men Type: BLOOD SPECIMENOrdering Facility: [facility] Address: [address] [place] [address] Performed By: #### 5 7021-8 ####[facility] [id number] [place] [address] [place] [facility] LABCLIA [id number] [place] [address] [place]#### 17903-6 ####[facility] LABCLIA [id number] [place] [address] [place] CNPNon 09-30-2024 CNPN Normal [facility] Folate SerPl-mCncon 10-01-19 25 Folate [Mass/Vol] 12.7 ng/mL Normal >4.7 [facility] Comment on above: Order Comment: Speci men Type: BLOOD SPECIMENOrdering Facility: [facility] Address: [address] [place] [address] Performed By: #### 2 132-9, 2284-8 ####[facility] LABCLIA [id number] [place] [address] [place] PSA SerPl-mCncon 09-30-2024 Prostate specific Ag [Mass/Vol] ng/mL Normal <2.60 [facility] Comment on above: Order Comment: Speci men Type: BLOOD SPECIMENOrdering Facility: [facility] Address: [address] [place] [address] Result Comment: Tota l PSA test methodology used is the Electrochemiluminescence Immunoassay by [employer]. Total PSA values by differing methodologies cannot be interchanged. Performed By: #### 2 857-1 ####[facility] LABIA [id number] [place] [address] [place] Retics #on 09-30-2024 Reticulocytes (Bld) [#/Vol] Normal [facility] Comment on above: Order Comment: Speci men Type: BLOOD SPECIMENOrdering Facility: [facility] Address: [address] [place] [address] Result Comment: Abso lute Value Below Analyzer Linearity. Performed By: #### 5 7021-8 ####[facility] [id number] [place] [address] [place] [facility] LABCLIA [id number] [place] [address] [place]#### 03558-7 ####[facility] LABCLIA [id number] [address], [place] [address] [place] Reticulocytes (Bld) [#/Vol]o n 09-30-2024 Reticulocytes/100 RBC (Bld) % Low 0.4-2.0 [facility] Comment on above: Order Comment: Speci men Type: BLOOD SPECIMENOrdering Facility: [facility] Address: [address] [place] [address] Performed By: #### 5 7021-8 ####[facility] [id number] [place] [address] [place] [facility] LABCLIA [id number] [place] [address] [place]#### 59002-1 ####[facility] LABCLIA [id number] [place] [address] [place] Vit B12 SerPl-mCncon 025 Cobalamin (Vitamin B12) [Mass/Vol] 704 pg/mL Normal 232-1245 [facility] Comment on above: Order Comment: Speci men Type: BLOOD SPECIMENOrdering Facility: [facility] Address: [address] [place] [address] Performed By: #### 2 132-9, 2284-8 ####[facility] LABCLIA [id number] [place] [address] [place] MR Brain WO and W contrast I Von 09-28-2024 IMPRESSION: Right superior parietal scalp skin defect with abnormal T1 hypointense marrow signal within the subjacent right parietal calvarium near the vertex concerning for reactive edema, however osteomyelitis and/or intraosseous extension of tumor could have a similar appearance. Recommend continued attention on follow-up imaging. No evidence of direct intracranial invasion into the adjacent dura. Subcentimeter T2 hyperintense lesion is present within the parafalcine left parietal lobe with faint restricted diffusion and no appreciable postcontrast enhancement. This finding is nonspecific, and while potentially reflecting a recent infarct, attention on short-term follow-up MRI of the brain with and without contrast is recommended to exclude early cerebral metastatic disease. Tool And [employer] Supervisor: PSCB Transcribe Date/Time: Sep 28 2024 1:30P Dictated by : NICOLE CERVANTES MD This examination was interpreted and the report reviewed and electronically signed by: NICOLE CERVANTES MD on Sep 28 2024 1:38PM [facility] [[email or web address]] DIVISION OF RADIOLOGY * * *Final Report* * * DATE OF EXAM: Sep 28 2024 12:50PM [facility] 0295 - MRI BRAIN WO/W IVCON / PROCEDURE REASON: multiple diagnoses * * * * Physician Interpretation * * * * EXAMINATION: MRI BRAIN WO/W IVCON CLINICAL HISTORY: Metastatic prostate cancer TECHNIQUE: Routine brain MRI protocol without and with contrast including diffusion images. MQ: MRBWOW_2 Contrast: 7 mL Elucirem IV COMPARISON: Head CT 12/08/2013 RESULT: Acute Change: There is no evidence of restricted diffusion to suggest an acute infarct. Hemorrhage: No evidence of prior parenchymal hemorrhage on the susceptibility weighted images. Mass Lesion/ Mass Effect: Subcentimeter T2 hyperintense lesion is present within the parafalcine left parietal lobe with faint restricted diffusion and no appreciable postcontrast enhancement. 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 Parenchyma: No significant volume loss for age. Ventricles: Normal caliber and morphology. Skull Base: Hypothalamic and pituitary region are grossly normal. Craniocervical junction is normal. Vasculature: The major intracranial arteries and dural venous sinuses appear patent. Calvarium and scalp: Right superior parietal scalp skin defect with abnormal T1 hypointense marrow signal within the subjacent right parietal calvarium near the vertex. DIVISION OF RADIOLOGY [facility] * * *Final Report* * * DATE OF EXAM: Sep 28 2024 12:50PM [facility] 0295 - MRI BRAIN WO/W IVCON / PROCEDURE REASON: multiple diagnoses * * * * Physician Interpretation * * * * EXAMINATION: MRI BRAIN WO/W IVCON CLINICAL HISTORY: Metastatic prostate cancer TECHNIQUE: Routine brain MRI protocol without and with contrast including diffusion images. MQ: MRBWOW_2 Contrast: 7 mL Elucirem IV COMPARISON: Head CT 12/08/2013 RESULT: Acute Change: There is no evidence of restricted diffusion to suggest an acute infarct. Hemorrhage: No evidence of prior parenchymal hemorrhage on the susceptibility weighted images. Mass Lesion/ Mass Effect: Subcentimeter T2 hyperintense lesion is present within the parafalcine left parietal lobe with faint restricted diffusion and no appreciable postcontrast enhancement. 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 Parenchyma: No significant volume loss for age. Ventricles: Normal caliber and morphology. Skull Base: Hypothalamic and pituitary region are grossly normal. Craniocervical junction is normal. Vasculature: The major intracranial arteries and dural venous sinuses appear patent. Calvarium and scalp: Right superior parietal scalp skin defect with abnormal T1 hypointense marrow signal within the subjacent right parietal calvarium near the vertex. IMPRESSION IMPRESSION: Right superior parietal scalp skin defect with abnormal T1 hypointense marrow signal within the subjacent right parietal calvarium near the vertex concerning for reactive edema, however osteomyelitis and/or intraosseous extension of tumor could have a similar appearance. Recommend continued attention on follow-up imaging. No evidence of direct intracranial invasion into the adjacent dura. Subcentimeter T2 hyperintense lesion is present within the parafalcine left parietal lobe with faint restricted diffusion and no appreciable postcontrast enhancement. This finding is nonspecific, and while potentially reflecting a recent infarct, attention on short-term follow-up MRI of the brain with and without contrast is recommended to exclude early cerebral metastatic disease. Tool And [employer] Supervisor: APRIL Transcribe Date/Time: Sep 28 2024 1:30P Dictated by : NICOLE CERVANTES MD This examination was interpreted and the report reviewed and electronically signed by: NICOLE CERVANTES MD on Chava 24 2025 1:38PM [facility] Radiology Study observation (narrative) [facility] MR Brain WO and W contrast I VOrdered By: [facility] Provider on 09-28-2024 [facility] MRI BRAIN WO/W IVCONon 09-28 MRI BRAIN WO/W IVCON [facility] Culture, Blood (WB)on 2024 CUB No growth in 5 days. Normal [facility] Comment on above: Performed By: #### M 200.1000, BRC, BTS ####[facility] [id number] [place], [address] CNPNon 09-23-2024 CNPN Normal [facility] Absolute lymphocyte countOrd ered By: Ivan Nugent on 09-22-2024 Lymphocytes Auto (Unsp spec) [#/Vol] 1.11 10*3/uL 0.83-4.51 [facility] Absolute neutrophil countOrd ered By: Ivan Nugent on 09-22-2024 Neutrophils (Bld) [#/Vol] 3.0 10*3/uL 2.0-7.7 [facility] Anion gap in Serum or Plasma Ordered By: Ivan Nugent on 09-22-2024 Anion gap [Moles/Vol] 10 mmol/L 5-15 [facility] Automated lymphocyte count a s percentage of total leukocytesOrdered By: Ivan Nugent on 09-22-2024 Lymphocytes/100 WBC Auto (Unsp spec) 25.6 % 19-41 [facility] BUN/creatinine ratioOrdered By: Ivan Nugent on 09-22-2024 Urea nitrogen/Creatinine [Mass ratio] 39.9 mg/mg High 10-20 [facility] Basophil percentageOrdered B y: Ivan Nugent on 09-22-2024 Basophils/100 WBC (Bld) 0.0 % 0-1 [facility] Bilirubin, totalOrdered By: Ivan Nugent on 09-22-2024 Bilirubin [Mass/Vol] 0.72 mg/dL 0.00-1.30 [facility] Blood manual differential co mment interpretation (narrative result)Ordered By: Ivan Nugent on 09-22-2024 Manual differential comment Regino (Bld) [Interp] SCANNED [facility] CBC W/Diff, Automatedon 09-05 Anisocytosis Ql (Bld) 2+ Normal [facility] Comment on above: Performed By: #### L 501.8820 #### [facility] Laboratory [address] [place], [place], [id number] ATYPICAL LYMPH 1+ Normal [facility] Comment on above: Performed By: #### L 501.8820 #### [facility] [address] [place], [place], [id number] SMEAR COMMENT SCANNED Normal [facility] Comment on above: Performed By: #### L 501.8820 #### [facility] [address] [place], [place], [id number] Carbon dioxide, total [Moles /volume] in Central venous bloodOrdered By: Ivan Nugent on 09-22-2024 CO2 [Moles/Vol] 17.9 mmol/L Low 21.0-32.0 [facility] Chloride assayOrdered By: Laura Nugent on 09-22-2024 Chloride [Moles/Vol] 110 mmol/L High 98-108 [facility] Comprehensive Metabolic Prof ilon 09-22-2024 Albumin [Mass/Vol] 3.0 g/dL Low 3.4-4.8 [facility] Comment on above: Performed By: #### L 501.8820 #### [facility] [address] [place], [place], [id number] Albumin/Globulin [Mass ratio] 1.3 {ratio} Normal 0.9-2.4 [facility] Comment on above: Performed By: #### L 501.8820 #### [facility] [address] [place], [place], [id number] (844 ALK PHOS 156 U/L High 40-129 [facility] Comment on above: Performed By: #### L 546.20 #### [facility] [address] [place], [address] ALT [Catalytic activity/Vol] 40 U/L Normal <=46 [facility] Comment on above: Performed By: #### L .20 #### [facility] [address] [place], [address] AST [Catalytic activity/Vol] 44 U/L High <=37 [facility] Comment on above: Performed By: #### L 501.20 #### [facility] [address] [place], [address] Bilirubin [Mass/Vol] 0.72 mg/dL Normal 0.00-1.30 [facility] Comment on above: Performed By: #### L .20 #### [facility] [address] [place], [address] BUN/CRE 39.9 RATIO High 10-20 [facility] Comment on above: Performed By: #### L 204.20 #### [facility] [address] [place], [address] Calcium [Mass/Vol] 7.7 mg/dL Normal 7.6-11.0 [facility] Comment on above: Performed By: #### L 501.8820 #### [facility] [address] [place], [address] Chloride [Moles/Vol] 110 mmol/L High 98-108 [facility] Comment on above: Performed By: #### L 501.20 #### [facility] [address] [place], [address] CO2 [Moles/Vol] 17.9 mmol/L Low 21.0-32.0 [facility] Comment on above: Performed By: #### L 501.4420 #### [facility] [address] [place], [address] Creatinine [Mass/Vol] 0.77 mg/dL Normal 0.70-1.20 [facility] Comment on above: Performed By: #### L 501.8820 #### [facility] [address] [place], [address] ECRCL 76.43 ml/min Normal 50-250 [facility] Comment on above: Performed By: #### L 501.8820 #### [facility] [address] [place], [address] GAP 10 Normal 5-15 [facility] Comment on above: Performed By: #### L 501.8820 #### [facility] [address] [place], [address] GFR/1.73 sq M.predicted among non-blacks MDRD (S/P/Bld) [Vol rate/Area] 96 mL/min/{1.73_m2} Normal >60 [facility] Comment on above: Result Comment: mL/m in/1.73m2 CKD-EPI Creatinine Equation (2020) Performed By: #### L 501.8820 #### [facility] [address] [place], [address] Globulin (S) [Mass/Vol] 2.4 g/dL Normal 2.2-4.2 [facility] Comment on above: Performed By: #### L 501.8820 #### [facility] [address] [place], [address] Glucose [Mass/Vol] 108 mg/dL High 70-99 [facility] Comment on above: Performed By: #### L 501.8820 #### [facility] [address] [place], [address] Potassium [Moles/Vol] 4.0 mmol/L Normal 3.3-5.1 [facility] Comment on above: Performed By: #### L 501.8820 #### [facility] [address] [place], [address] Sodium [Moles/Vol] 139 mmol/L Normal 133-145 [facility] Comment on above: Performed By: #### L 501.8820 #### [facility] [address] [place], [address] T PROT 5.5 g/dL Low 5.9-8.4 [facility] Comment on above: Performed By: #### L 501.8820 #### [facility] [address] [place], [address] Urea nitrogen [Mass/Vol] 31 mg/dL High 4-19 [facility] Comment on above: Performed By: #### L 501.8820 #### [facility] [address] [place], [place], [address] Discharge Instructionon 09-05 Discharge Instruction [facility] Medical Records Department [address] [place] [address] Instructions for Home/Discharge Instructions 09/22/24 1614 MR#: [id number] Acct: [id number] Name: LUTHER CASTILLO II Rep #: [id number] : 1955 69 From: Ivan Nugent MD PCP: Dr. López Ocampo MD Status:ADM IN Discharge Instructions Diet Discharge Diet: No restrictions DC O2, CPAP, BIPAP needs Home O2 Discharge instructions: No Dressing / Incision Discharge Activity: Return to Normal Activity Dressing / Incision Call your doctor if you observe: Fever of 101 or Higher, Shortness of breath, Dizziness, Fainting spells, Swelling in the ankles, Chest pain and Increased palpitations (irregular heartbeat) Follow Up Care Test Results: Test results from this visit will be discussed in further detail at your follow-up appointment, if applicable. Discharge Plan Admission Admit Date/Time: 09/18/24 15:12 Attending Provider: Ivan Nugent Primary Care Provider: López Ocampo Consulting Providers: Rohit Crawford Discharge Orders/Prescriptions Prescriptions: New cefdinir 300 mg capsule 300 mg PO BID Qty: 16 0RF Continued cimetidine [Tagamet HB] 200 mg tablet 200 mg PO BID Rx Instructions: administer with meals Eligard (6 month) 45 mg syringe 45 mg subcut .COMPLEX Rx Instructions: 45 mg subcutaneously EVERY 6 MONTHS; atorvastatin 20 mg tablet 20 mg PO QHS prednisone 5 mg tablet 5 mg PO BID tamsulosin 0.4 mg capsule 0.4 mg PO DAILY abiraterone 250 mg tablet 1,000 mg PO DAILY darbepoetin dagmar in polysorbat [Aranesp (in polysorbate)] See Rx Instructions IV .COMPLEX Patient Comments: PT UNSURE OF STRENGTH, BUT TOOK THIS MONTH (SEPTEMBER 2024) Rx Instructions: intravenously EVERY MONTH; Referrals / Follow Up: López Ocampo MD [Primary Care Provider] - Within 1 Week Rohit Crawford MD [Med Staff - Active Staff] - Within 2 Weeks (Unless you prefer a [facility] physician) Disposition Disposition (needs filled in before D/C Order can be placed): Home, Self Care 09/22/24 1616 Ivan Nugent MD CC: Dr. López Ocampo MD; Dr. Rohit Crawford MD Signed Normal [facility] Eosinophil percentageOrdered By: Ivan Nugent on 09-22-2024 Eosinophils/100 WBC (Bld) 0.9 % 0-5 [facility] Erythrocyte distribution wid th ratioOrdered By: Ivan Nugent on 09-22-2024 Erythrocyte distribution width (RBC) [Ratio] 20.4 % High 11.6-14.6 [facility] Erythrocyte distribution wid th standard deviationOrdered By: Ivan Nugent on 09-22-2024 Erythrocyte distribution width (RBC) [Ratio] 61.1 fl High 35.1-43.9 [facility] Glomerular filtration rate ( GFR) estimation/1.73 sq m using serum, plasma, or whole bOrdered By: Ivan Nugent on 09-22-2024 GFR/1.73 sq M.predicted among non-blacks MDRD (S/P/Bld) [Vol rate/Area] 96 mL/min/{1.73_m2} >60 [facility] Comment on above: mL/min/1.73m2 CKD-EP I Creatinine Equation (2020) Hematocrit Auto (Bld) [Volum e fraction]Ordered By: Ivan Nugent on 09-22-2024 Hematocrit (Bld) [Volume fraction] 29.3 % Low 40-54 [facility] Hemoglobin measurementOrdere d By: Ivan Nugent on 09-22-2024 Hemoglobin (Bld) [Mass/Vol] 9.2 g/dL Low 13.0-16.5 [facility] Immature granulocytes/100 WB C Auto (Bld)Ordered By: Ivan Nugent on 09-22-2024 Immature granulocytes/100 WBC (Bld) 0.500 % 0.0-0.9 [facility] Comment on above: IG% - Immature Granu locytes (promyelocytes, myelocytes and metamyelocytes) > 1% indicates that a LEFT SHIFT is Present. Laboratory - Chemistry and C hemistry - challengeOrdered By: Ivan Nugent on 09-22-2024 AST [Catalytic activity/Vol] 44 U/L High <38 [facility] Laboratory - Hematology and Cell countsOrdered By: Ivan Nugent on 09-22-2024 Anisocytosis Ql (Bld) 2+ [facility] MCV (mean corpuscular volume ) determinationOrdered By: Ivan Nugent on 09-22-2024 MCV (RBC) [Entitic vol] 81.4 fL 80-94 [facility] Mean corpuscular hemoglobin (MCH) determinationOrdered By: Ivan Nugent on 09-22-2024 MCH (RBC) [Entitic mass] 25.6 pg Low 27.0-32.0 [facility] Mean corpuscular hemoglobin concentration (MCHC) determinationOrdered By: Ivan Nugent on 09-22-2024 MCHC (RBC) [Mass/Vol] 31.4 g/dL Low 32-36 [facility] Mean platelet volume determi nationOrdered By: Ivan Nugent on 09-22-2024 Platelet mean volume (Bld) [Entitic vol] 9.6 fL 6.2-12.0 [facility] Monocyte percentageOrdered B y: Ivan Nugent on 09-22-2024 Monocytes/100 WBC (Bld) 3.5 % 0-10 [facility] Neutrophil percentageOrdered By: Ivan Nugent on 09-22-2024 Neutrophils/100 WBC (Bld) 69.5 % 47-70 [facility] Nucleated red blood cell per centageOrdered By: Ivan Nugent on 09-22-2024 Nucleated RBC/100 WBC (Bld) [Ratio] 0 % 0-5 [facility] Platelet countOrdered By: Laura Nugent on 09-22-2024 Platelets (Bld) [#/Vol] 107 10*3/uL Low 150-450 [facility] Potassium measurement (mass/ volume)Ordered By: Ivan Nugent on 09-22-2024 Potassium (Unsp spec) [Mass/Vol] 4.0 mmol/L 3.3-5.1 [facility] RBC Auto (Bld) [#/Vol]Ordere d By: Ivan Nugent on 09-22-2024 RBC (Bld) [#/Vol] 3.60 10*6/uL Low 4.6-6.2 [facility] Serum creatinine measurement (mass/volume)Ordered By: Ivan Nugent on 09-22-2024 Creatinine [Mass/Vol] 0.77 mg/dL 0.70-1.20 [facility] Serum globulin measurementOr dered By: Ivan Nugent on 09-22-2024 Globulin (S) [Mass/Vol] 2.4 g/dL 2.2-4.2 [facility] Serum glucose measurement (m ass/volume)Ordered By: Ivan Nugent on 09-22-2024 Glucose [Mass/Vol] 108 mg/dL High 70-99 [facility] Serum or plasma alanine moreno otransferase (ALT) measurementOrdered By: Ivan Nugent on 09-22-2024 ALT [Catalytic activity/Vol] 40 U/L <47 [facility] Serum or plasma albumin manuelito urement (mass/volume)Ordered By: Ivan Nugent on 09-22-2024 Albumin [Mass/Vol] 3.0 g/dL Low 3.4-4.8 [facility] Serum or plasma albumin/glob ulin mass ratioOrdered By: Ivan Nugent on 09-22-2024 Albumin/Globulin [Mass ratio] 1.3 {ratio} 0.9-2.4 [facility] Serum or plasma alkaline francisca sphatase measurementOrdered By: Ivan Nugent on 09-22-2024 ALP [Catalytic activity/Vol] 156 U/L High 40-129 [facility] Serum or plasma calcium manuelito urement (mass/volume)Ordered By: Ivan Nugent on 09-22-2024 Calcium [Mass/Vol] 7.7 mg/dL 7.6-11.0 [facility] Serum or plasma urea nitroge n measurement (mass/volume)Ordered By: Ivan Nugent on 09-22-2024 Urea nitrogen [Mass/Vol] 31 mg/dL High 4-19 [facility] Sodium levelOrdered By: Dhiraj Nugent on 09-22-2024 Sodium [Moles/Vol] 139 mmol/L 133-145 [facility] Total proteinOrdered By: Prasad Nugent on 09-22-2024 Protein [Mass/Vol] 5.5 g/dL Low 5.9-8.4 [facility] Trough vancomycin levelOrder ed By: Ivan Nugent on 09-22-2024 Vancomycin trough [Mass/Vol] 11.2 ug/mL 5.0-15.0 [facility] Comment on above: Recommended goal tro ugh ranges are generally 10-15 mcg/ml for less severe/complicated infections such as cellulitis or UTI and 15-20 mcg/ml for more severe/complicated infections such as bacteremia/sepsis, osteomyelitis, pneumonia or meningitis. Goal trough ranges should take into account indication, patient-specific factors and organism DAILY.VANCOMYCIN STANDARED DRUG THERAPY TROUGH LEVEL: 5.0 - 15.0 mg/L VANCOMYCIN HIGH INTENSITY THERAPY TROUGH LEVEL: 15.0 - 20.0 mg/L High Intensity therapy recommended for serious lifethreatening infections include:- Qmyawsruzc-Fiykceoxnsvw-Ygiiuerpd (Ventilator/Healtcare Associated)-Sepsis PLEASE CONTACT PHARMACY SERVICES (#1876) FOR INTERPRETATIONOF RESULTS. Vancomycin, Trough Levelon 0 09-22-2024 VANCO, TROUGH 11.2 ug/mL Normal 5.0-15.0 [facility] Comment on above: Order Comment: Comme nts: Trough to be drawn 30 mins prior to scheduled dose 1730 Result Comment: Miles mmended goal trough ranges are generally 10-15 mcg/ml for less severe/complicated infections such as cellulitis or UTI and 15-20 mcg/ml for more severe/complicated infections such as bacteremia/sepsis, osteomyelitis, pneumonia or meningitis. Goal trough ranges should take into account indication, patient-specific factors and organism DAILY. VANCOMYCIN STANDARED DRUG THERAPY TROUGH LEVEL: 5.0 - 15.0 mg/L VANCOMYCIN HIGH INTENSITY THERAPY TROUGH LEVEL: 15.0 - 20.0 mg/L High Intensity therapy recommended for serious life threatening infections include: - Meningitis -Endocarditis -Pneumonia (Ventilator/Healtcare Associated) -Sepsis PLEASE CONTACT PHARMACY SERVICES (#[id number]) FOR INTERPRETATION OF RESULTS. Performed By: #### L 501.8820 #### [facility] Laboratory [address] [place], [place], [address] White blood cell (WBC) count Ordered By: Ivan Nugent on 09-22-2024 WBC (Bld) [#/Vol] 4.3 10*3/uL Low 4.4-11.0 [facility] Abdomen Limitedon 09-21-2024 Abdomen Limited [facility] Imaging Services [address] [place], [place] [address] Abdomen Limited MR#: [id number] Acct: [id number] Name: LUTHER CASTILLO II Rep #: [id number] : 1955 M 69 From: Maximo stern MD PCP: Dr. López Ocampo MD Status: ADM IN Study: Abdomen Limited Date of Exam: 09/21/24 Exam# [id number] Ordering Dr: Ivan Nugent MD PROCEDURE: ABDOMEN LIMITED 09/21/2024 REASON FOR EXAM: UNKNOWN SOURCE INFECTIOM, RUQ PAIN TECHNIQUE: ABDOMEN LIMITED COMPARISON: Prior CT scan of the abdomen and pelvis dated September 19, 2024. FINDINGS: Liver: Coarsened hepatic echotexture with a nodular liver contour suggestive of cirrhosis. Gallbladder: Gallbladder wall thickening especially along its anterior aspect. Cholecystitis should be ruled out. The gallbladder wall measures 5 mm. Common bile duct: Normal measuring 5 mm. . Pancreas: Visualized portions are sonographically unremarkable. Kidneys: The right kidney measures 10.8 cm 5.5 cm 4.2 cm. Renal cortex measures 1.8 cm. US/Abdomen Limited IMPRESSION: Heterogeneous echotexture of the liver parenchyma. Edematous anterior gallbladder wall measuring 5 mm. Cholecystitis should be ruled out. Reading Location: [place] [address] CC: Dr. López Ocampo MD; Dr. Ivan Nugent MD [employer] Supervisor: Signed Normal [facility] CBC W/Diff, Automatedon 09-05 Anisocytosis Ql (Bld) 2+ Normal [facility] Comment on above: Performed By: #### L 500.4050, L100.0100 #### [facility] Laboratory [address] [place], [address] ATYPICAL LYMPH 1+ Normal [facility] Comment on above: Performed By: #### L 500.4050, L100.0100 #### [facility] Laboratory [address] [place], [address] PLT EST MKD DEC Normal ADEQ [facility] Comment on above: Performed By: #### L 500.4050, L100.0100 #### [facility] Laboratory [address] [place], [address] SMEAR COMMENT SCANNED Normal [facility] Comment on above: Performed By: #### L 500.4050, L100.0100 #### [facility] Laboratory [address] [place], [address] CNPNon 09-21-2024 CNPN Normal [facility] ilon 09-21-2024 Albumin [Mass/Vol] 3.0 g/dL Low 3.4-4.8 [facility] Comment on above: Performed By: #### L 500.4050, L100.0100 #### [facility] Laboratory [address] [place], [address] Albumin/Globulin [Mass ratio] 1.1 {ratio} Normal 0.9-2.4 [facility] Comment on above: Performed By: #### L 500.4050, L100.0100 #### [facility] Laboratory [address] [place], [address] ALK PHOS 167 U/L High 40-129 [facility] Comment on above: Performed By: #### L 500.4050, L100.0100 #### [facility] Laboratory [address] [place], [address] ALT [Catalytic activity/Vol] 33 U/L Normal <=46 [facility] Comment on above: Performed By: #### L 500.4050, L100.0100 #### [facility] Laboratory [address] [place], [address] AST [Catalytic activity/Vol] 40 U/L High <=37 [facility] Comment on above: Performed By: #### L 500.4050, L100.0100 #### [facility] Laboratory [address] [place], [address] Bilirubin [Mass/Vol] 0.70 mg/dL Normal 0.00-1.30 [facility] Comment on above: Performed By: #### L 500.4050, L100.0100 #### [facility] Laboratory [address] [place], [address] BUN/CRE 40.7 RATIO High 10-20 [facility] Comment on above: Performed By: #### L 500.4050, L100.0100 #### [facility] Laboratory [address] [place], [address] Calcium [Mass/Vol] 7.5 mg/dL Low 7.6-11.0 [facility] Comment on above: Performed By: #### L 500.4050, L100.0100 #### [facility] Laboratory [address] [place], [address] Chloride [Moles/Vol] 113 mmol/L High 98-108 [facility] Comment on above: Performed By: #### L 500.4050, L100.0100 #### [facility] Laboratory [address] [place], [address] CO2 [Moles/Vol] 16.5 mmol/L Low 21.0-32.0 [facility] Comment on above: Performed By: #### L 500.4050, L100.0100 #### [facility] Laboratory [address] [place], [address] Creatinine [Mass/Vol] 0.86 mg/dL Normal 0.70-1.20 [facility] Comment on above: Performed By: #### L 500.4050, L100.0100 #### [facility] Laboratory [address] [place], [address] ECRCL 71.09 ml/min Normal 50-250 [facility] Comment on above: Performed By: #### L 500.4050, L100.0100 #### [facility] Laboratory [address] [place], [address] GAP 11 Normal 5-15 [facility] Comment on above: Performed By: #### L 500.4050, L100.0100 #### [facility] Laboratory [address] [place], [address] GFR/1.73 sq M.predicted among non-blacks MDRD (S/P/Bld) [Vol rate/Area] 93 mL/min/{1.73_m2} Normal >60 [facility] Comment on above: Result Comment: mL/m in/1.73m2 CKD-EPI Creatinine Equation (2020) Performed By: #### L 500.4050, L100.0100 #### [facility] Laboratory [address] [place], [address] Globulin (S) [Mass/Vol] 2.6 g/dL Normal 2.2-4.2 [facility] Comment on above: Performed By: #### L 500.4050, L100.0100 #### [facility] Laboratory [address] [place], [address] Glucose [Mass/Vol] 123 mg/dL High 70-99 [facility] Comment on above: Performed By: #### L 500.4050, L100.0100 #### [facility] Laboratory [address] [place], [address] Potassium [Moles/Vol] 4.0 mmol/L Normal 3.3-5.1 [facility] Comment on above: Performed By: #### L 500.4050, L100.0100 #### [facility] Laboratory [address] [place], [address] Sodium [Moles/Vol] 140 mmol/L Normal 133-145 [facility] Comment on above: Performed By: #### L 500.4050, L100.0100 #### [facility] Laboratory [address] [place], [address] T PROT 5.6 g/dL Low 5.9-8.4 [facility] Comment on above: Performed By: #### L 500.4050, L100.0100 #### [facility] Laboratory [address] [place], [address] Urea nitrogen [Mass/Vol] 35 mg/dL High 4-19 [facility] Comment on above: Performed By: #### L 500.4050, L100.0100 #### [facility] Laboratory [address] [place], [address] Consultation - Surgicalon Consultation - Surgical [facility] Medical Records Department [address] [place] [address] Consultation - Surgical 09/21/24 1827 MR#: [id number] Acct: [id number] Name: LUTHER CASTILLO II Rep #: [id number] : 1955 69 From: Rohit Crawford MD PCP: Dr. López Ocampo MD Status:ADM IN Location: [facility] [place] [id number] Assessment Plan Assessment/Plan (1) Acute acalculous cholecystitis: PLAN: Patient is 69-year-old male with history of metastatic prostate cancer on immunotherapy as well as supportive medications for his history of pancytopenia who is admitted for apparent gram- negative and gram-positive septicemia. Initially there was no source for his sepsis, however, reinvestigation of the abdomen showed evidence of cholecystitis on ultrasound imaging. When I reviewed patient's CT imaging from his intake evaluation I believe there was evidence of gallbladder wall thickening with those pictures as well. In a dedicated review of patient's ultrasound imaging with radiology they confirmed the presence of an edematous wall but do not find any signs of emphysema or necrosis. They also did not find any evidence of cholelithiasis. Patient initially presented with mild elevation of his liver function testing, T. bili, and alkaline phosphatase but his alkaline phosphatase remains elevated and there was no ductal dilatation on either his CT or ultrasound imaging. Therefore, given patient's clinical status I am inclined to pursue a diagnosis of acalculous cholecystitis. I discussed the management of this condition with he and his spouse. Specifically, I shared that for patients with certain clinical findings (necrosis, emphysematous changes of the wall, or gallbladder perforation) cholecystectomy is required where the patient is an acceptable surgical candidate. For patients where they failed to respond to conservative measures and are not deemed a surgical candidate then we must consider cholecystostomy tube placement. However, Mr. Castillo's case he appears to have responded to conservative measures and so I am inclined to pursue this course of action as the consideration for cholecystectomy would include a number of patient-specific risks including cirrhotic morphology on imaging, thrombocytopenia, duration of symptoms extending beyond 72 hours, concurrent steroid therapy for stress dose, concurrent immunotherapy... Given the complexity of Mr. Castillo's care I discussed treatment implications with primary hospitalist, Dr. Nugent and recommended we consider involvement of hematology oncology as well for their input. Patient's primary concern is that he is able to return to immunotherapy and given the rarity of his condition and my unfamiliarity with his treatment regimen, I am unable to comment as to which option is most preferable given his complete clinical picture. For now recommend continuing dietary restriction with IV antibiotics and will continue with serial abdominal exams as we also await final results of his blood cultures. Rohit Crawford MD General Surgery Endocrine Surgery Pager: [facility] [address] [place] [address], [facility], [address] [place] [address] Office: [phone] HPI Consult Data Date of Consult: 09/21/24 HPI Narrative Reason for Consultation: Concern for cholecystitis HPI Narrative: LUTHER CASTILLO, is a 69 M who is known to me for a history of appendicitis status post laparoscopic appendectomy February 05, 2024 who presented to [facility] on 09/18/2024 due to complaints of dizziness and lethargy. Workup was conducted for suspicion for sepsis. ER workup notes patient denies any abdominal pain. Given hypotension patient required mission to the intensive care unit for the last 3 days. He has responded to supportive care and was able to be moved to regular medical surgical floor yesterday. Blood cultures are preliminary still but show polymicrobial growth. CT scan performed as part of intake investigation was read as demonstrating a large calcified gallstone of the gallbladder but otherwise no acute findings. However, without a source for patient's bacteremia hospitalist ordered right upper quadrant ultrasound imaging and this was read by radiology as concerning for cholecystitis given his edematous wall presentation. 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 Patient follows with Dr. Herring of oncology for treatment. Patient reports undergoing a procedure to try to stimulate healing of a prior Mohs procedure of the scalp 10 weeks ago just prior to his admission. [facility] Medical History (Updated 09/21/24 @ 18:[address] Rohit Crawford MD) Cancer Dizziness Home Medications ???Medication ???Instructions ???Recorded ???Last Taken ??? (more content not included)... Normal [facility] Electrocardiogram reportOrde red By: Timmy Sood on 09-21-2024 EKG study [facility] Cardiovascular Services [address] [place] [address] 12 Lead EKG 09/18/24 1234 MR#: [id number] Acct: [id number] Name: LUTHER CASTILLO II Rep #:[id number] : 1955 69 From: Timmy Sood MD Attending Dr: Dr. Ivan Nugent MD Status: ADM IN Ordering Dr: Augustin Carney MD Date: Location: [facility] Sex: M C Admitted: 09/18/24 Test Reason : DIZZINESS Blood Pressure : */* mmHG Vent. Rate : 90 BPM Atrial Rate : 90 BPM P-R Int : 134 ms QRS Dur : 76 ms QT Int : 366 ms P-R-T Axes : 44 -23 38 degrees QTcB Int : 447 ms Normal sinus rhythm Normal ECG Confirmed by LENIN NUNEZ, TIMMY ([id number]), script editor DERREK PAN ([id number]) on 58:17:48 AM Referred By: CRIS/NIKIA Confirmed By: TIMMY SOOD MD 09/21/24 0817 Date _ Timmy Sood MD CC: Dr. López Ocampo MD; Dr. Augustin Carney MD; Dr. Ivan Nugent MD ~ Signed [facility] Other Phone: Platelet estimateOrdered By: Ivan Nugent on 09-21-2024 Platelets LM Ql (Bld) MKD DEC ADEQ [facility] Vancomycin, Trough Levelon 0 09-21-2024 VANCO, TROUGH 8.9 ug/mL Normal 5.0-15.0 [facility] Comment on above: Order Comment: Comme nts: Trough to be drawn 30 mins prior to scheduled [id number] Result Comment: Miles mmended goal trough ranges are generally 10-15 mcg/ml for less severe/complicated infections such as cellulitis or UTI and 15-20 mcg/ml for more severe/complicated infections such as bacteremia/sepsis, osteomyelitis, pneumonia or meningitis. Goal trough ranges should take into account indication, patient-specific factors and organism DAILY. VANCOMYCIN STANDARED DRUG THERAPY TROUGH LEVEL: 5.0 - 15.0 mg/L VANCOMYCIN HIGH INTENSITY THERAPY TROUGH LEVEL: 15.0 - 20.0 mg/L High Intensity therapy recommended for serious life threatening infections include: - Meningitis -Endocarditis -Pneumonia (Ventilator/Healtcare Associated) -Sepsis PLEASE CONTACT PHARMACY SERVICES (#[id number]) FOR INTERPRETATION OF RESULTS. Performed By: #### L 500.4050, L100.0100 #### [facility] Laboratory [address] [place], [address] BRCon 09-20-2024 RC Normal [facility] Comment on above: Result Comment: [id number] ON RC TRANSFUSED 09/20/24 1041 [id number] BN RC TRANSFUSED 09/20/24 1232 Performed By: #### M 200.1000, BRC, BTS ####[facility] [address] [place], [address] Blood cultureOrdered By: Prasad Nugent on 09-20-2024 Bacteria identified Cx Nom (Bld) No growth in 5 days. [facility] CBC W/Diff, Automatedon - OVALOCYTE 1+ Normal [facility] Comment on above: Performed By: #### L 500.4050, L100.0100 #### [facility] Laboratory [address] [place], [address] ALEXX CELLS 1+ Normal [facility] Comment on above: Performed By: #### L 500.4050, L100.0100 #### [facility] Laboratory [address] [place], [address] HYPOCHROMASIA 2+ Normal [facility] Comment on above: Performed By: #### L 500.4050, L100.0100 #### [facility] Laboratory [address] [place], [address] MICROCYTIC 2+ Normal [facility] Comment on above: Performed By: #### L 500.4050, L100.0100 #### [facility] Laboratory [address] [place], [address] Anisocytosis Ql (Bld) 3+ Normal [facility] Comment on above: Performed By: #### L 500.4050, L100.0100 #### [facility] Laboratory [address] [place], [address] SMEAR COMMENT SCANNED Normal [facility] Comment on above: Performed By: #### L 500.4050, L100.0100 #### [facility] Laboratory [address] [place], [address] Comprehensive Metabolic Prof [facility] 09-20-2024 Albumin [Mass/Vol] 2.7 g/dL Low 3.4-4.8 [facility] Comment on above: Performed By: #### L 500.4050, L100.0100 #### [facility] Laboratory [address] [place], [address] Albumin/Globulin [Mass ratio] 1.1 {ratio} Normal 0.9-2.4 [facility] Comment on above: Performed By: #### L 500.4050, L100.0100 #### [facility] Laboratory [address] [place], [address] ALK PHOS 135 U/L High 40-129 [facility] Comment on above: Performed By: #### L 500.4050, L100.0100 #### [facility] Laboratory [address] [place], [address] ALT [Catalytic activity/Vol] 20 U/L Normal <=46 [facility] Comment on above: Performed By: #### L 500.4050, L100.0100 #### [facility] Laboratory [address] [place], [address] AST [Catalytic activity/Vol] 30 U/L Normal <=37 [facility] Comment on above: Performed By: #### L 500.4050, L100.0100 #### [facility] Laboratory [address] [place], [address] Bilirubin [Mass/Vol] 0.47 mg/dL Normal 0.00-1.30 [facility] Comment on above: Performed By: #### L 500.4050, L100.0100 #### [facility] Laboratory [address] [place], [address] BUN/CRE 34.9 RATIO High 10-20 [facility] Comment on above: Performed By: #### L 500.4050, L100.0100 #### [facility] Laboratory [address] [place], [address] Calcium [Mass/Vol] 7.0 mg/dL Low 7.6-11.0 [facility] Comment on above: Performed By: #### L 500.4050, L100.0100 #### [facility] Laboratory [address] [place], [address] Chloride [Moles/Vol] 112 mmol/L High 98-108 [facility] Comment on above: Performed By: #### L 500.4050, L100.0100 #### [facility] Laboratory [address] [place], [address] CO2 [Moles/Vol] 16.0 mmol/L Low 21.0-32.0 [facility] Comment on above: Performed By: #### L 500.4050, L100.0100 #### [facility] Laboratory [address] [place], [address] Creatinine [Mass/Vol] 0.96 mg/dL Normal 0.70-1.20 [facility] Comment on above: Performed By: #### L 500.4050, L100.0100 #### [facility] [address] [place], [address] ECRCL 63.69 ml/min Normal 50-250 [facility] Comment on above: Performed By: #### L 500.4050, L100.0100 #### [facility] Laboratory [address] [place], [address] GAP 10 Normal 5-15 [facility] Comment on above: Performed By: #### L 500.4050, L100.0100 #### [facility] Laboratory [address] [place], [address] GFR/1.73 sq M.predicted among non-blacks MDRD (S/P/Bld) [Vol rate/Area] 85 mL/min/{1.73_m2} Normal >60 [facility] Comment on above: Result Comment: mL/m in/1.73m2 CKD-EPI Creatinine Equation (2020) Performed By: #### L 500.4050, L100.0100 #### [facility] Laboratory [address] [place], [address] Globulin (S) [Mass/Vol] 2.5 g/dL Normal 2.2-4.2 [facility] Comment on above: Performed By: #### L 500.4050, L100.0100 #### [facility] Laboratory [address] [place], [address] Glucose [Mass/Vol] 175 mg/dL High 70-99 [facility] Comment on above: Performed By: #### L 500.4050, L100.0100 #### [facility] Laboratory [address] [place], [address] Potassium [Moles/Vol] 3.9 mmol/L Normal 3.3-5.1 [facility] Comment on above: Performed By: #### L 500.4050, L100.0100 #### [facility] [address] [place], [address] Sodium [Moles/Vol] 138 mmol/L Normal 133-145 [facility] Comment on above: Performed By: #### L 500.4050, L100.0100 #### [facility] Laboratory [address] [place], [address] T PROT 5.2 g/dL Low 5.9-8.4 [facility] Comment on above: Performed By: #### L 500.4050, L100.0100 #### [facility] Laboratory [address] [place], [address] Urea nitrogen [Mass/Vol] 33 mg/dL High 4-19 [facility] Comment on above: Performed By: #### L 500.4050, L100.0100 #### [facility] [address] [place], [address] Crenated erythrocyte detecti on by light microscopyOrdered By: Ivan Nugent on 09-20-2024 Filley cells LM Ql (Bld) 1+ [facility] Hypochromatic red blood cell detectionOrdered By: Ivan Nugent on 09-20-2024 Hypochromia Ql (Bld) 2+ [facility] Ovalocyte detectionOrdered B y: Ivan Nugent on 09-20-2024 Ovalocytes LM Ql (Bld) 1+ [facility] Type AND Screenon 09-20-2024 Ab SCREEN GEL Negative Normal [facility] Comment on above: Order Comment: CMV N EG? NNumber of units to transfuse: 2Reason for Ordering Blood: ChronicAre the blood/blood products to be transfused? YIs the patient having/had surgery? NWhen [place] Performed By: #### M 200.1000, BRC, BTS ####[facility] [address] [place], [address] Abdomen/Pelvis WITH Contrast on 09-19-2024 Abdomen/Pelvis WITH Contrast [facility] Imaging Services [address] [place] [address] Abdomen/Pelvis WITH Contrast MR#: [id number] Acct: [id number] Name: LUTHER CASTILLO II Rep #: [id number] : 1955 M 69 From: Juany Reese nd, MD PCP: Dr. López Ocampo MD Status: ADM IN Study: Abdomen/Pelvis WITH Contrast Date of Exam: Exam# [id number] Ordering Dr: Ivan Nugent MD PROCEDURE: ABDOMEN/PELVIS WITH CONTRAST 09/19/2024 REASON FOR EXAM: SEPSIS WITH UNKNOWN SOURCE. Vomiting, history of prostate cancer. TECHNIQUE: ABDOMEN/PELVIS WITH CONTRAST. Coronal and Sagittal reconstruction series were provided. ORAL CONTRAST TYPE: Gastrografin CONTRAST: Isovue 370 VOLUME: 100 mL One or more dose reduction techniques were used (e.g., Automated exposure control, adjustment of the mA and/or kV according to patient size, use of iterative reconstruction technique. RADIATION DOSE SUMMARY: CTDlvol: 30 mGy DLP: 900 mGycm COMPARISON: CT abdomen pelvis 02/05/2024. FINDINGS: Lung bases: Small bilateral pleural effusions with adjacent atelectasis. The heart is normal in size with coronary artery and aortic valvular calcifications. Liver: Normal in size without suspicious hepatic mass. The major portal veins are patent. No biliary ductal dilation. Gallbladder: Calcified stone within the gallbladder. No gallbladder wall thickening or pericholecystic fluid. Spleen: Normal in size. Pancreas: Mildly atrophic. Adrenals: No adrenal mass. Kidneys: No hydronephrosis or nephrolithiasis. Bladder: Decompressed by indwelling Loza catheter. Reproductive Organs: The prostate is atrophic or surgically absent. Bowel: Oral contrast material opacifies the distal small bowel and large bowel loops. The bowel loops are nondilated. Trace ascites within the lower pelvis (series 2, image 80), slightly improved since prior examination. No pneumoperitoneum. Prior appendectomy. Lymph nodes: No suspicious lymphadenopathy. Vasculature: Severe mixed plaque of the aortoiliac vessels. Bones: Thoracolumbar spondylosis with unchanged leftward curvature of the lower lumbar spine. 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 CT/Abdomen/Pelvis WITH Contrast IMPRESSION: No acute abdominopelvic finding. Reading Location: [id number] CC: Dr. López Ocampo MD; Dr. Ivan Nugent MD Tool And Die Supervisor: Signed Normal [facility] Basic Metabolic Profile (BMP )on 09-19-2024 BUN/CRE 23.9 RATIO High 10-20 [facility] Comment on above: Performed By: #### L 501.8820 #### [facility] Laboratory [address] [place], [address] Calcium [Mass/Vol] 7.3 mg/dL Low 7.6-11.0 [facility] Comment on above: Performed By: #### L 501.8820 #### [facility] Laboratory [address] [place], [address] Chloride [Moles/Vol] 111 mmol/L High 98-108 [facility] Comment on above: Performed By: #### L [id number] #### [facility] Laboratory [address] [place], [address] CO2 [Moles/Vol] 15.1 mmol/L Low 21.0-32.0 [facility] Comment on above: Performed By: #### L [id number] #### [facility] Laboratory [address] [place], [address] Creatinine [Mass/Vol] 1.32 mg/dL High 0.70-1.20 [facility] Comment on above: Performed By: #### L 501.8820 #### [facility] Laboratory [address] [place], [address] ECRCL 46.32 ml/min Low 50-250 [facility] Comment on above: Performed By: #### L 501.8820 #### [facility] Laboratory [address] [place], [address] GAP 13 Normal 5-15 [facility] Comment on above: Performed By: #### L 501.8820 #### [facility] Laboratory [address] [place], [address] GFR/1.73 sq M.predicted among non-blacks MDRD (S/P/Bld) [Vol rate/Area] 58 mL/min/{1.73_m2} Low >60 [facility] Comment on above: Result Comment: mL/m in/1.73m2 CKD-EPI Creatinine Equation (2020) Performed By: #### L 501.8820 #### [facility] Laboratory [address] [place], [address] Glucose [Mass/Vol] 112 mg/dL High 70-99 [facility] Comment on above: Performed By: #### L 501.8820 #### [facility] Laboratory [address] [place], [address] Potassium [Moles/Vol] 4.1 mmol/L Normal 3.3-5.1 [facility] Comment on above: Performed By: #### L 501.8820 #### [facility] Laboratory [address], [address] Sodium [Moles/Vol] 139 mmol/L Normal 133-145 [facility] Comment on above: Performed By: #### L 501.8820 #### [facility] Laboratory [address] [place], [address] Urea nitrogen [Mass/Vol] 32 mg/dL High 4-19 [facility] Comment on above: Performed By: #### L 501.8820 #### [facility] Laboratory [address] [place], [address] Bilirubin directOrdered By: Ivan Nugent on 09-19-2024 Bilirubin.direct [Mass/Vol] 1.15 mg/dL High 0.00-0.30 [facility] CBC W/Diff, Automatedon 09-05 HYPOCHROMASIA 2+ Normal [facility] Comment on above: Performed By: #### L [id number] #### [facility] Laboratory [address] [place], [address] ALEXX CELLS 1+ Normal [facility] Comment on above: Performed By: #### L 501.8820 #### [facility] Laboratory [address] [place], [address] MICROCYTIC 2+ Normal [facility] Comment on above: Performed By: #### L 501.8820 #### [facility] Laboratory [address] [place], [address] TEAR DROP RARE Normal [facility] Comment on above: Performed By: #### L 501.8820 #### [facility] Laboratory [address] [place], [address] OVALOCYTE 1+ Normal [facility] Comment on above: Performed By: #### L 501.8820 #### [facility] Laboratory [address] [place], [address] Anisocytosis Ql (Bld) 3+ Normal [facility] Comment on above: Performed By: #### L 501.8820 #### [facility] Laboratory [address] [place], [address] PLT EST SLT DEC Normal ADEQ [facility] Comment on above: Performed By: #### L 501.8820 #### [facility] Laboratory [address] [place], [address] SMEAR COMMENT SCANNED Normal [facility] Comment on above: Performed By: #### L 501.8820 #### [facility] Laboratory [address] [place], [address] CDIFF (PCR)on 09-19-2024 CDIFF Is the patient recei ving laxatives? N Above criteria not met but test indicated Y New/unexplained onset of 3 or more stools in past 24 hrs? Y Pending 027 027 [id number] Presumptive Negative *for epidemiolologic???use C. Diff PCR Negative- No toxigenic C. Diff Detected Normal [facility] Comment on above: Performed By: #### M 100.637, M100.6796 ####[facility] [id number] [place], [address] Clostridium difficile detect ion by polymerase chain reactionOrdered By: Ivan Nugent on 09-19-2024 C. difficile DNA IMAN+probe Ql (Unsp spec) [facility] ENTERIC PATHOGEN PANEL STOOL on 09-19-2024 EP PANEL Is the patient recei ving laxatives? N Above criteria not met but test indicated Y New/unexplained onset of 3 or more stools in past 24 hrs? Y Normal Reference Range = Not Detected Not detected for Campylobacter group, Salmonella species, Shigella species, Vibrio Group, Yersinia enterocolitica, EHEC (Shiga Toxin 1, Shiga Toxin 2), Norovirus Gl/Gll, and Rotavirus A. Other common stool pathogens are not detected on this panel include: Aeromonas/Plesiomonas or parasites. Order testing for these organisms separately if suspected. This is an amplified DNA test which makes it both specific and sensitive. CAMPYLOBACTER Not Detected Norovirus Not Detected Rotavirus Not Detected Salmonella Not Detected Shiga Toxin Not Detected Shigella sp. Not Detected VIBRIO Not Detected Yersinia Not Detected Normal [facility] Comment on above: Performed By: #### M 100.637, M100.6796 ####[facility] [id number] [place], [address] Liver Profileon 09-19-2024 Albumin [Mass/Vol] 2.8 g/dL Low 3.4-4.8 [facility] Comment on above: Performed By: #### L 500.4050, L100.0100 #### [facility] Laboratory [address] [place], [address] ALK PHOS 169 U/L High 40-129 [facility] Comment on above: Performed By: #### L 500.4050, L100.0100 #### [facility] Laboratory [address] [place], [address] ALT [Catalytic activity/Vol] 25 U/L Normal <=46 [facility] Comment on above: Performed By: #### L 500.4050, L100.0100 #### [facility] Laboratory [address] [place], [address] AST [Catalytic activity/Vol] 39 U/L High <=37 [facility] Comment on above: Performed By: #### L 500.4050, L100.0100 #### [facility] Laboratory [address] [place], [address] Bilirubin [Mass/Vol] 1.56 mg/dL High 0.00-1.30 [facility] Comment on above: Performed By: #### L 500.4050, L100.0100 #### [facility] Laboratory [address] [place], [address] Bilirubin.direct [Mass/Vol] 1.15 mg/dL High 0.00-0.30 [facility] Comment on above: Performed By: #### L 500.4050, L100.0100 #### [facility] Laboratory [address] [place], [address] Globulin (S) [Mass/Vol] 2.4 g/dL Normal 2.2-4.2 [facility] Comment on above: Performed By: #### L 500.4050, L100.0100 #### [facility] Laboratory [address] [place], [address] T PROT 5.2 g/dL Low 5.9-8.4 [facility] Comment on above: Performed By: #### L 500.4050, L100.0100 #### [facility] Laboratory [address] [place], [address] Teardrop cell detectionOrder ed By: Ivan Nugent on 09-19-2024 Dacrocytes LM Ql (Bld) RARE [facility] Urine Cultureon 09-19-2024 URC Culture exhibits no growth. Normal [facility] Comment on above: Performed By: #### L 500.4050, L100.0100 #### [facility] Laboratory [address] [place], [address] 12 Lead EKGon 09-18-2024 12 Lead EKG [facility] Cardiovascular Services [address] [place] [address] 12 Lead EKG 09/18/24 1234 MR#: [id number] Acct: [id number] Name: LUTHER CASTILLO II Rep #: [id number] : 1955 69 From: Timmy Sood MD Attending Dr: Dr. Ivan Nugent MD Status : ADM IN Ordering Dr: Augustin Carney MD Date: 09/18/24 [place] [facility] [place] Sex: M C Admitted: 09/18/24 Test Reason : DIZZINESS Blood Pressure : */* mmHG Vent. Rate : 90 BPM Atrial Rate : 90 BPM P-R Int : 134 ms QRS Dur : 76 ms QT Int : 366 ms P-R-T Axes : 44 -23 38 degrees QTcB Int : 447 ms Normal sinus rhythm Normal ECG Confirmed by LENIN NUNEZ, TIMMY ([id number]), script editor DERREK PAN ([id number]) on 09/21/2024 8:17:48 AM Referred By: CRIS/NIKIA Confirmed By: TIMMY SOOD MD 09/21/24 0817 Date Timmy Sood MD CC: Dr. López Ocampo MD; Dr. Augustin Carney MD; Dr. Ivan Nugent MD Signed Normal [facility] Absolute lymphocyte countOrd ered By: Augustin Carney on 09-18-2024 Lymphocytes Auto (Unsp spec) [#/Vol] 0.47 10*3/uL Low 0.83-4.51 [facility] Absolute neutrophil countOrd ered By: Augustin Carney on 09-18-2024 Neutrophils (Bld) [#/Vol] 3.8 10*3/uL 2.0-7.7 [facility] Activated partial thrombopla stin time (aPTT) in platelet poor plasma by coagulation aOrdered By: Augustin Carney on 09-18-2024 aPTT Coag (PPP) [Time] 36.6 s High 24.1-36.2 [facility] Anion gap in Serum or Plasma Ordered By: Augustin Carney on 09-18-2024 Anion gap [Moles/Vol] 14 mmol/L 5-15 [facility] Automated lymphocyte count a s percentage of total leukocytesOrdered By: Augustin Carney on 09-18-2024 Lymphocytes/100 WBC Auto (Unsp spec) 10.7 % Low 19-41 [facility] BUN/creatinine ratioOrdered By: Augustin Carney on 09-18-2024 Urea nitrogen/Creatinine [Mass ratio] 20.1 mg/mg High 10-20 [facility] Basophil percentageOrdered B y: Augustin Carney on 09-18-2024 Basophils/100 WBC (Bld) 0.2 % 0-1 [facility] Bilirubin Test strip Ql (U)O rdered By: Augustin Carney on 09-18-2024 Bilirubin Ql (U) 1 mg/dL High Negative [facility] Comment on above: COLOR OF URINE MAY A FFECT DIPSTICK RESULTS. Bilirubin, totalOrdered By: Augustin Carney on 09-18-2024 Bilirubin [Mass/Vol] 1.76 mg/dL High 0.00-1.30 [facility] Blood cultureOrdered By: Ayad Carney on 09-18-2024 Bacteria identified Cx Nom (Bld) Streptococcus intermedius Abnormal [facility] Bacteria identified Cx Nom (Bld) Haemophilus parainfluenzae Abnormal [facility] Bacteria identified Cx Nom (Bld) Positive Abnormal [facility] Bacteria identified Cx Nom (Bld) Negative Abnormal [facility] CBC W/Diff, Automatedon 09-05 Anisocytosis Ql (Bld) 1+ Normal [facility] Comment on above: Performed By: #### L 100.0100, L500.4050, M200.1000, L300.3900, L503.6005, L300.4310 #### [facility] Laboratory [address] [place], [address] HYPOCHROMASIA 1+ Normal [facility] Comment on above: Performed By: #### L 100.0100, L500.4050, M200.1000, L300.3900, L503.6005, L300.4310 #### [facility] Laboratory [address] [place], [address] Carbon dioxide, total [Moles /volume] in Central venous bloodOrdered By: Augustin Carney on 09-18-2024 CO2 [Moles/Vol] 20.3 mmol/L Low 21.0-32.0 [facility] Chest 1 View (Portable)on Chest 1 View (Portable) [facility] Imaging Services [address] [place] [address] Chest 1 View (Portable) MR#: [id number] Acct: [id number] Name: LUTHER CASTILLO II Rep #: [id number] : 1955 M 69 From: Lon Crockett DO PCP: Dr. López Ocampo MD Status: PRE ER Study: Chest 1 View (Portable) Date of Exam: 09/18/24 Exam# [id number] Ordering Dr: Augustin Carney MD PROCEDURE: CHEST 1 VIEW (PORTABLE) 09/18/2024 REASON FOR EXAM: DYSPNEA TECHNIQUE: Frontal view of the chest. COMPARISON: Chest radiograph February 05, 2024 FINDINGS: Hardware: None. Heart: Normal size. Lungs: Grossly clear. Bones: No aggressive process. Other: RAD/Chest 1 View (Portable) IMPRESSION: No acute process detected. Reading [facility] CC: Dr. López Ocampo MD; Dr. Augustin Carney MD Tool And Die Supervisor: Signed Normal [facility] Chloride assayOrdered By: Derrick Carney on 09-18-2024 Chloride [Moles/Vol] 102 mmol/L 98-108 [facility] Comprehensive Metabolic Prof ilon 09-18-2024 Albumin [Mass/Vol] 3.3 g/dL Low 3.4-4.8 [facility] Comment on above: Performed By: #### L 100.0100, L500.4050, M200.1000, L300.3900, L503.6005, L300.4310 #### [facility] Laboratory [address] [place], [address] Albumin/Globulin [Mass ratio] 1.2 {ratio} Normal 0.9-2.4 [facility] Comment on above: Performed By: #### L 100.0100, L500.4050, M200.1000, L300.3900, L503.6005, L300.4310 #### [facility] Laboratory [address] [place], [address] ALK PHOS 152 U/L High 40-129 [facility] Comment on above: Performed By: #### L 100.0100, L500.4050, M200.1000, L300.3900, L503.6005, L300.4310 #### [facility] Laboratory [address] [place], [address] ALT [Catalytic activity/Vol] 20 U/L Normal <=46 [facility] Comment on above: Performed By: #### L 100.0100, L500.4050, M200.1000, L300.3900, L503.6005, L300.4310 #### [facility] Laboratory [address] [place], [address] AST [Catalytic activity/Vol] 28 U/L Normal <=37 [facility] Comment on above: Performed By: #### L 100.0100, L500.4050, M200.1000, L300.3900, L503.6005, L300.4310 #### [facility] Laboratory [address] [place], [address] Bilirubin [Mass/Vol] 1.76 mg/dL High 0.00-1.30 [facility] Comment on above: Performed By: #### L 100.0100, L500.4050, M200.1000, L300.3900, L503.6005, L300.4310 #### [facility] Laboratory [address] [place], [address] BUN/CRE 20.1 RATIO High 10-20 [facility] Comment on above: Performed By: #### L 100.0100, L500.4050, M200.1000, L300.3900, L503.6005, L300.4310 #### [facility] Laboratory [address] [place], [address] Calcium [Mass/Vol] 8.6 mg/dL Normal 7.6-11.0 [facility] Comment on above: Performed By: #### L 100.0100, L500.4050, M200.1000, L300.3900, L503.6005, L300.4310 #### [facility] Laboratory [address] [place], [address] Chloride [Moles/Vol] 102 mmol/L Normal 98-108 [facility] Comment on above: Performed By: #### L 100.0100, L500.4050, M200.1000, L300.3900, L503.6005, L300.4310 #### [facility] Laboratory [address] [place], [address] CO2 [Moles/Vol] 20.3 mmol/L Low 21.0-32.0 [facility] Comment on above: Performed By: #### L 100.0100, L500.4050, M200.1000, L300.3900, L503.6005, L300.4310 #### [facility] Laboratory [address] [place], [address] Creatinine [Mass/Vol] 2.13 mg/dL High 0.70-1.20 [facility] Comment on above: Performed By: #### L 100.0100, L500.4050, M200.1000, L300.3900, L503.6005, L300.4310 #### [facility] Laboratory [address] [place], [address] ECRCL 30.37 ml/min Low 50-250 [facility] Comment on above: Performed By: #### L 100.0100, L500.4050, M200.1000, L300.3900, L503.6005, L300.4310 #### [facility] Laboratory [address] [place], [address] GAP 14 Normal 5-15 [facility] Comment on above: Performed By: #### L 100.0100, L500.4050, M200.1000, L300.3900, L503.6005, L300.4310 #### [facility] Laboratory [address] [place], [address] GFR/1.73 sq M.predicted among non-blacks MDRD (S/P/Bld) [Vol rate/Area] 32 mL/min/{1.73_m2} Low >60 [facility] Comment on above: Result Comment: mL/m in/1.73m2 CKD-EPI Creatinine Equation (2020) Performed By: #### L 100.0100, L500.4050, M200.1000, L300.3900, L503.6005, L300.4310 #### [facility] Laboratory [address] [place], [address] Globulin (S) [Mass/Vol] 2.8 g/dL Normal 2.2-4.2 [facility] Comment on above: Performed By: #### L 100.0100, L500.4050, M200.1000, L300.3900, L503.6005, L300.4310 #### [facility] Laboratory [address] [place], [address] Glucose [Mass/Vol] 75 mg/dL Normal 70-99 [facility] Comment on above: Performed By: #### L 100.0100, L500.4050, M200.1000, L300.3900, L503.6005, L300.4310 #### [facility] Laboratory [address] [place], [address] Potassium [Moles/Vol] 4.1 mmol/L Normal 3.3-5.1 [facility] Comment on above: Performed By: #### L 100.0100, L500.4050, M200.1000, L300.3900, L503.6005, L300.4310 #### [facility] Laboratory [address] [place], [address] Sodium [Moles/Vol] 137 mmol/L Normal 133-145 [facility] Comment on above: Performed By: #### L 100.0100, L500.4050, M200.1000, L300.3900, L503.6005, L300.4310 #### [facility] Laboratory [address] [place], [address] T PROT 6.1 g/dL Normal 5.9-8.4 [facility] Comment on above: Performed By: #### L 100.0100, L500.4050, M200.1000, L300.3900, L503.6005, L300.4310 #### [facility] Laboratory [address] [place], [address] Urea nitrogen [Mass/Vol] 43 mg/dL High 4-19 [facility] Comment on above: Performed By: #### L 100.0100, L500.4050, M200.1000, L300.3900, L503.6005, L300.4310 #### [facility] Laboratory [address] [place], [address] Emergency Department Summary on 09-18-2024 Emergency Department Summary [facility] Medical Records Department [address] [place] [address] Emergency Department Summary 09/18/24 MR#: [id number] Acct: [id number] Name: LUTHER CASTILLO II Rep #: [id number] : 1955 69 From: Augustin Carney MD PCP: Dr. López Ocampo MD Status:REG ER Location: ED HPI History of Present Illness Chief Complaint: Dizziness Informant: patient Onset/Context/Timing Onset: Today and Yesterday Context: Gradual Onset Timing: Continuous Current Severity: Moderate Maximum Severity: Moderate Narrative Narrative: 69-year-old male immunotherapy for stage IV prostate cancer with bony mets. Yesterday he started feeling dizzy. Mild shortness of breath. Nausea. Fever as high as 100. No vomiting. No diarrhea. No dysuria. No cough. No rashes. No abdominal pain. Prior similar symptoms: No Recent Illness/Hospitalization: No PFSH PFSH Medical History (Updated 09/18/24 @ 15:[address] Augustin Carney MD) Dizziness Home Medications ???Medication ???Instructions ???Recorded ???Last Taken ???Type abiraterone 250 mg tablet 1,000 mg PO DAILY prostate cancer 12/11/23 09/17/24 History atorvastatin 20 mg tablet 20 mg PO QHS cholesterol 12/11/23 09/17/24 History prednisone 5 mg tablet 5 mg PO BID prostate 12/11/2309/05 History tamsulosin 0.4 mg capsule 0.4 mg PO DAILY prostate 12/11/23 09/17/24 History cimetidine 200 mg tablet (Tagamet 200 mg PO BID 02/05/24 09/17/24 H istory HB) leuprolide acetate (6 month) 45 mg 45 mg subcut .COMPLEX 02/05/24 0 09/15/24 History (6 month) subcutaneous syringe (Eligard) darbepoetin dagmar in polysorbat See Rx Instructions IV .COMPLEX Unknown History Allergy/AdvReac Type Severity Reaction Status Date / Time No Known Allergies Allergy Verified 09/18/24 12:29 Social History Smoking Status: Never smoker ROS ROS ED ROS Narrative Fever of 101. Short of breath. Nausea. Dizziness. Hypotension. Constitutional Constitutional ED: Reports fever(s) Eyes Eyes: Denies blurry vision ENT ENT ED: Denies ear pain Cardiovascular Cardiovascular: Denies chest pain Respiratory/Chest Respiratory/Chest: Reports dyspnea; Denies cough Gastrointestinal Gastrointestinal: Reports nausea; Denies abdominal pain, constipation, diarrhea, melena or vomiting Genitourinary Genitourinary ED: Denies dysuria or hematuria Musculoskeletal Musculoskeletal: Denies arthralgias Integumentary Denies abscess Neurologic Neurologic: Reports headache(s) Psychiatric Psychiatric: Denies anxiety Endocrine Endocrinology: Denies cold intolerance Hematologic/Lymphatic Hematologic/Lymphatic: Reports none Allergic/Immunologic Allergic/Immunologic ED: Denies mouth swelling, tongue swelling or urticaria EXAM Physical Exam Narrative Exam Narrative: 69-year-old male lying in bed. He is hypotensive at 80/72. There is family at bedside. He possibly may be septic. H EENT exam mild dry mucous membranes. He has got a bandage on top of his head from recent Mohs surgery. There is no cellulitis. Neck nontender no lymphadenopathy. No JVD. Lungs clear to auscultation bilaterally. Heart regular rhythm no murmur. Chest wall ribs nontender. Abdomen soft nontender. No peritoneal signs. No localizing tenderness. No hernia or mass. No obstruction. Back nontender. Moving all 4 extremities. Nontender no edema. No cellulitis. No cords. Neurologically he is awake and alert. Answer questions following commands. Normal strength. Const Vital Signs: 09/18/24 12:24 09/18/24 12:26 09/18/24 12:42 Temperature 97.8 F Temperature Source Oral Pulse Rate 93 88 Respiratory Rate 18 18 Blood Pressure 56/34 L 56/34 L 80/72 L Blood Pressure Mean 41 41 74 Pulse Ox 97 95 Oxygen Delivery Method Room Air Room Air 09/18/24 13:18 09/18/24 13:51 09/18/24 14:30 Temperature 98.4 F Temperature Source Oral Pulse Rate 87 85 Respiratory Rate 19 H 20 H Blood Pressure 70/51 L 85/53 L Blood Pressure Mean 57 63 Pulse Ox 93 93 Oxygen Delivery Method Room Air Room Air Positive well nourished and well developed; Negative for cachectic, contractures or unkempt General Appearance ED: well developed; Negative for unkempt, cachectic, contractures, cyanotic, diaphoretic, NAD or pallor Nutritional Appearance: Negative for cachectic HEENT Reports dry mucous membranes Negative for trauma or tenderness Mouth ED: Yes dry mucous membranes Mouth: dry mucous membranes Eyes PERRL and EOMs intact bilaterally Neck no lymphadenopathy, supple and no JVD Chest Wall inspection of chest normal and palpation of chest normal Resp normal respiratory effort and clear to auscultation bilaterally Cardio regular rate, regul (more content not included)... Normal [facility] Eosinophil percentageOrdered By: Augustin Carney on 09-18-2024 Eosinophils/100 WBC (Bld) 0.5 % 0-5 [facility] Erythrocyte distribution wid th ratioOrdered By: Augustin Carney on 09-18-2024 Erythrocyte distribution width (RBC) [Ratio] 21.4 % High 11.6-14.6 [facility] Erythrocyte distribution wid th standard deviationOrdered By: Augustin Carney on 09-18-2024 Erythrocyte distribution width (RBC) [Ratio] 62.0 fl High 35.1-43.9 [facility] Glomerular filtration rate ( GFR) estimation/1.73 sq m using serum, plasma, or whole bOrdered By: Augustin Carney on 09-18-2024 GFR/1.73 sq M.predicted among non-blacks MDRD (S/P/Bld) [Vol rate/Area] 32 mL/min/{1.73_m2} Low >60 [facility] Comment on above: mL/min/1.73m2 CKD-EP I Creatinine Equation (2020) H AND P Exam - [facility] 09-18-2024 H&P Exam - Hospitalist [facility] Medical Records Department [address] [place] [address] H P Exam - Hospitalist 09/18/24 1601 MR#: [id number] Acct: [id number] Name: LUTHER CASTILLO ALLAN Rep #: [id number] : 1955 69 From: Ivan Nugent MD PCP: Dr. López Ocampo MD Status:ADM IN Location: ICU ICU03-1 HPI - General General Date of Admission: 09/18/24 HPI Narrative LUTHER CASTILLO, is a 69 M who presents to the hospital with dizziness and hypotension. He has a history of stage IV prostate cancer with mets to the bone that he is currently on immunotherapy and hormonal therapy for. Both time he found that it was already metastatic so he has not undergone a prostatectomy. He has been having headaches for the last 3 weeks but they think that is due to his recent Mohs surgery that has not healed on his scalp. That area does not appear infected. He does not have a leukocytosis and he presented with an STACI to 2.13. He is also had a lactic acidosis of 2.3 and was given several fluid boluses in the emergency room. No obvious signs of infection at the moment, UA is unremarkable as is chest x-ray. He does have an elevated alk phos which is likely due to his bone mets but does also have an elevated total bilirubin at 1.7 sick and he does have some scleral icterus. Initially when he presented to the hospital his systolic blood pressures were in the 50s with a MAP of 41, currently on my evaluation his MAP is 67 with a systolic blood pressure of 102. He started feeling unwell yesterday though given the severity of his vital signs on arrival he has likely been sick for several days that was just asymptomatic secondary to his immunocompromise state. He is chronically on steroids and is unable to compensate. [facility] Medical History (Updated 09/18/24 @ 15:[address] Augustin Carney MD) Dizziness Home Medications ???Medication ???Instructions ???Recorded ???Last Taken ???Type abiraterone 250 mg tablet 1,000 mg PO DAILY prostate cancer 12/11/23 09/17/24 History atorvastatin 20 mg tablet 20 mg PO QHS cholesterol 12/11/23 09/17/24 History prednisone 5 mg tablet 5 mg PO BID prostate 12/11/2309/05 History tamsulosin 0.4 mg capsule 0.4 mg PO DAILY prostate 12/11/23 09/17/24 History cimetidine 200 mg tablet (Tagamet 200 mg PO BID 02/05/24 09/17/24 H istory HB) leuprolide acetate (6 month) 45 mg 45 mg subcut .COMPLEX 02/05/24 0 09/15/24 History (6 month) subcutaneous syringe (Arnulfo) darbepoetin dagmar in polysorbat See Rx Instructions IV .COMPLEX Unknown History Allergy/AdvReac Type Severity Reaction Status Date / Time No Known Allergies Allergy Verified 09/18/24 12:29 Family History (Updated 09/18/24 @ 16:[address] Ivan Nugent MD) Other Cancer Surgical History (Updated 09/18/24 @ 16:[address] Ivan Nugent MD) Status post Mohs surgery Social History Smoking Status: Never smoker ROS Constitutional Constitutional: Reports fatigue and weakness; Denies chills, fever(s) or malaise Eyes Eyes: Denies blurry vision ENT HEENT: Denies headache(s) or nasal discharge Cardiovascular Cardiovascular: Denies chest pain, dyspnea on exertion or syncope Respiratory/Chest Respiratory/Chest: Denies cough, shortness of breath at rest or shortness of breath with exertion Gastrointestinal Gastrointestinal: Reports nausea; Denies constipation, diarrhea or vomiting Genitourinary Genitourinary: Denies dysuria Neurologic Neurologic: Reports headache(s); Denies focal weakness, numbness or tremor(s) Psychiatric Psychiatric: Denies anxiety or depression Vital Signs Vital Signs Vital Signs: 09/18/24 12:24 09/18/24 12:26 09/18/24 12:42 Temperature 97.8 F Temperature Source Oral Pulse Rate 93 88 Respiratory Rate 18 18 Blood Pressure 56/34 L 56/34 L 80/72 L Blood Pressure Mean 41 41 74 Pulse Ox 97 95 Oxygen Delivery Method Room Air Room Air 09/18/24 13:18 09/18/24 13:51 09/18/24 14:30 Temperature 98.4 F Temperature Source Oral Pulse Rate 87 85 Respiratory Rate 19 H 20 H Blood Pressure 70/51 L 85/53 L Blood Pressure Mean 57 63 Pulse Ox 93 93 Oxygen Delivery Method Room Air Room Air Weight Weight: 148 lb 12.992 oz Body Mass Index (BMI) 22.6 Physical Exam Narrative General: Alert little drowsy, Oriented x3, Cooperative, No apparent distress HEENT: Atraumatic, PERRLA, EOMI, Normocephalic, Mohs surgery on his right scalp dressing intact with fluid collection underneath does not appear infected, no surrounding erythema Oral: Moist Mucosa Neck: Supple, No JVD Lungs: Diminished, Normal air movement, No rhonchi, No wheeze, No rales Cardiovascular: Regular rate, Regular Rhythm, Normal (more content not included)... Normal [facility] Hematocrit Auto (Bld) [Volum e fraction]Ordered By: Augustin Carney on 09-18-2024 Hematocrit (Bld) [Volume fraction] 29.3 % Low 40-54 [facility] Hemoglobin measurementOrdere d By: Augustin Carney on 09-18-2024 Hemoglobin (Bld) [Mass/Vol] 8.6 g/dL Low 13.0-16.5 [facility] Hyaline casts LM.LPF (Urine sed) [#/Area]Ordered By: Augustin Carney on 09-18-2024 Hyaline casts (Urine sed) [#/Area] 0 /[LPF] 0-5 [facility] Hypochromatic red blood cell detectionOrdered By: Augustin Carney on 09-18-2024 Hypochromia Ql (Bld) 1+ [facility] Immature granulocytes/100 WB C Auto (Bld)Ordered By: Augustin Carney on 09-18-2024 Immature granulocytes/100 WBC (Bld) 0.200 % 0.0-0.9 [facility] Comment on above: IG% - Immature Granu locytes (promyelocytes, myelocytes and metamyelocytes) > 1% indicates that a LEFT SHIFT is Present. Influenza virus A and B and SARS-CoV-2 (COVID-19) and Respiratory syncytial virus RNAOrdered By: Augustin Carney on 09-18-2024 SARS-CoV-2 (COVID-19) RNA IMAN+probe Ql (Unsp spec) [facility] International normalized rat io (INR) calculationOrdered By: Augustin Carney on 09-18-2024 INR Coag (Bld) [Relative time] 1.4 {INR} [facility] Ketones Test strip Ql (U)Ord ered By: Augustin Carney on 09-18-2024 Ketones Ql (U) 5 mg/dl High Negative [facility] L499.0042on 09-18-2024 Trop T High Sen 44 ng/L High <=22 [facility] Comment on above: Performed By: #### L 500.4050, L100.0100 #### [facility] Laboratory [address] [place], [address] L499.0043on 09-18-2024 Trop T High Sen 41 ng/L High <=22 [facility] Comment on above: Performed By: #### L 500.4050, L100.0100 #### [facility] Laboratory [address] [place], [address] L501.4021on 09-18-2024 Trop T High Sen 47 ng/L High <=22 [facility] Comment on above: Performed By: #### L 500.4050, L100.0100 #### [facility] Laboratory [address] [place], [address] Laboratory - Chemistry and C hemistry - challengeOrdered By: Augustin Carney on 09-18-2024 AST [Catalytic activity/Vol] 28 U/L <38 [facility] Laboratory - Hematology and Cell countsOrdered By: Augustin Carney on 09-18-2024 Anisocytosis Ql (Bld) 1+ [facility] Lactic Acidon 09-18-2024 Lactate [Moles/Vol] 2.3 mmol/L Invalid Interpretation Code 0.0-2.0 [facility] Comment on above: Order Comment: Y Result Comment: Crit ical Result(s) Called at: 09/18/2024-14:32 by: Pranav Augustine to Edilma Mo.??Results read back by same. Performed By: #### L 100.0100, L500.4050, M200.1000, L300.3900, L503.6005, L300.4310 ####[facility] [address] [place], [address] Lactic acid measurementOrder ed By: Augustin Carney on 09-18-2024 Lactate [Moles/Vol] 1.2 mmol/L 0.0-2.0 [facility] Comment on above: Order Comment: Y Performed By: #### L 500.4050, L100.0100 #### [facility] Laboratory [address] [place], [place], [address] Lactate [Moles/Vol] 2.3 mmol/L High 0.0-2.0 [facility] Comment on above: Critical Result(s) C alled at: 09/18/2024-14:32 by: Pranav Augustine to Edilma Mo. Results read back by same. M100.678on 09-18-2024 M100.678 Pending SARS-CoV-2 (COVID 19) Negative INFLUENZA A Negative INFLUENZA B Negative RSV PCR Negative Normal [facility] Comment on above: Performed By: #### L 500.4050, L100.0100 #### [facility] Laboratory [address] [place], [place], [id number] MCV (mean corpuscular volume ) determinationOrdered By: Augustin Carney on 09-18-2024 MCV (RBC) [Entitic vol] 80.7 fL 80-94 [facility] Mean corpuscular hemoglobin (MCH) determinationOrdered By: Augustin Carney on 09-18-2024 MCH (RBC) [Entitic mass] 23.7 pg Low 27.0-32.0 [facility] Mean corpuscular hemoglobin concentration (MCHC) determinationOrdered By: Augustin Carney on 09-18-2024 MCHC (RBC) [Mass/Vol] 29.4 g/dL Low 32-36 [facility] Mean platelet volume determi nationOrdered By: Augustin Carney on 09-18-2024 Platelet mean volume (Bld) [Entitic vol] 8.8 fL 6.2-12.0 [facility] Microscopic analysis of urin e for red blood cells (RBC)Ordered By: Augustin Carney on 09-18-2024 Microscopic analysis of urine for red blood cells (RBC) 0 SEEN /hpf 0-5 [facility] Monocyte percentageOrdered B y: Augustin Carney on 09-18-2024 Monocytes/100 WBC (Bld) 0.9 % 0-10 [facility] Mucus LM Ql (Urine sed)Order ed By: Augustin Carney on 09-18-2024 Mucus Ql (Urine sed) 0 SEEN /hpf [facility] Neutrophil percentageOrdered By: Augustin Carney on 09-18-2024 Neutrophils/100 WBC (Bld) 87.5 % High 47-70 [facility] Nitrite Test strip Ql (U)Ord ered By: Augustin Carney on 09-18-2024 Nitrite Ql (U) Negative Negative [facility] Nucleated red blood cell per centageOrdered By: Augustin Carney on 09-18-2024 Nucleated RBC/100 WBC (Bld) [Ratio] 0 % 0-5 [facility] Partial Thromboplast Timeon 09-18-2024 aPTT Coag (Bld) [Time] 36.6 s High 24.1-36.2 [facility] Comment on above: Performed By: #### L 100.0100, L500.4050, M200.1000, L300.3900, L503.6005, L300.4310 #### [facility] Laboratory [address] [place], [address] Platelet countOrdered By: Derrick Carney on 09-18-2024 Platelets (Bld) [#/Vol] 119 10*3/uL Low 150-450 [facility] Potassium measurement (mass/ volume)Ordered By: Augustin Carney on 09-18-2024 Potassium (Unsp spec) [Mass/Vol] 4.1 mmol/L 3.3-5.1 [facility] Protein Test strip Ql (U)Ord ered By: Augustin Carney on 09-18-2024 Protein Ql (U) 30 mg/dl High Negative [facility] Prothrombin Time w/INRon INR Coag (PPP) [Relative time] 1.4 {INR} Normal [facility] Comment on above: Performed By: #### L 100.0100, L500.4050, M200.1000, L300.3900, L503.6005, L300.4310 #### [facility] Laboratory [address] [place], [address] PT Coag (PPP) [Time] 17.7 s High 11.7-14.9 [facility] Comment on above: Performed By: #### L 100.0100, L500.4050, M200.1000, L300.3900, L503.6005, L300.4310 #### [facility] Laboratory [address] [place], [address] Prothrombin timeOrdered By: Augustin Carney on 09-18-2024 PT Coag (PPP) [Time] 17.7 s High 11.7-14.9 [facility] RBC Auto (Bld) [#/Vol]Ordere d By: Augustin Carney on 09-18-2024 RBC (Bld) [#/Vol] 3.63 10*6/uL Low 4.6-6.2 [facility] Serum creatinine measurement (mass/volume)Ordered By: Augustin Carney on 09-18-2024 Creatinine [Mass/Vol] 2.13 mg/dL High 0.70-1.20 [facility] Serum globulin measurementOr dered By: Augustin Carney on 09-18-2024 Globulin (S) [Mass/Vol] 2.8 g/dL 2.2-4.2 [facility] Serum glucose measurement (m ass/volume)Ordered By: Augustin Carney on 09-18-2024 Glucose [Mass/Vol] 75 mg/dL 70-99 [facility] Serum or plasma alanine moreno otransferase (ALT) measurementOrdered By: Augustin Carney on 09-18-2024 ALT [Catalytic activity/Vol] 20 U/L <47 [facility] Serum or plasma albumin manuelito urement (mass/volume)Ordered By: Augustin Carney on 09-18-2024 Albumin [Mass/Vol] 3.3 g/dL Low 3.4-4.8 [facility] Serum or plasma albumin/glob ulin mass ratioOrdered By: Augustin Carney on 09-18-2024 Albumin/Globulin [Mass ratio] 1.2 {ratio} 0.9-2.4 [facility] Serum or plasma alkaline francisca sphatase measurementOrdered By: Augustin Carney on 09-18-2024 ALP [Catalytic activity/Vol] 152 U/L High 40-129 [facility] Serum or plasma calcium manuelito urement (mass/volume)Ordered By: Augustin Carney on 09-18-2024 Calcium [Mass/Vol] 8.6 mg/dL 7.6-11.0 [facility] Serum or plasma urea nitroge n measurement (mass/volume)Ordered By: Augustin Carney on 09-18-2024 Urea nitrogen [Mass/Vol] 43 mg/dL High 4-19 [facility] Sodium levelOrdered By: Augustin Carney on 09-18-2024 Sodium [Moles/Vol] 137 mmol/L 133-145 [facility] Squamous epithelial cells de tection in urine sediment by light microscopyOrdered By: Augustin Carney on 09-18-2024 Epithelial cells.squamous LM Ql (Urine sed) 0 SEEN /hpf 0-5 [facility] Total proteinOrdered By: Ayad Carney on 09-18-2024 Protein [Mass/Vol] 6.1 g/dL 5.9-8.4 [facility] Troponin T.cardiac [Mass/vol ume] in Serum or Plasma by High sensitivity methodOrdered By: Augustin Carney on 09-18-2024 Troponin T.cardiac High sensitivity method [Mass/Vol] 41 ng/L High <22 [facility] Troponin T.cardiac High sensitivity method [Mass/Vol] 44 ng/L High <22 [facility] Troponin T.cardiac High sensitivity method [Mass/Vol] 47 ng/L High <22 [facility] Urinalysis, Completeon 09-18 WBC 5-10 SEEN Normal 0-5 [facility] Comment on above: Order Comment: MAU CTOR TO SPECIFY Performed By: #### L 500.4050, L100.0100 #### [facility] Laboratory [address] [place], [address] CAST,HYALINE 0-5 SEEN Normal 0-5 [facility] Comment on above: Order Comment: MAU CTOR TO SPECIFY Performed By: #### L 500.4050, L100.0100 #### [facility] Laboratory [address] [place], [address] BACTERIA 0 SEEN Normal None Seen [facility] Comment on above: Order Comment: MAU CTOR TO SPECIFY Performed By: #### L 500.4050, L100.0100 #### [facility] Laboratory [address] [place], [address] EPI,SQUAMOUS 0 SEEN Normal 0-5 [facility] Comment on above: Order Comment: MAU CTOR TO SPECIFY Performed By: #### L 500.4050, L100.0100 #### [facility] Laboratory [address] [place], [address] Mucus Ql (Urine sed) 0 SEEN Normal [facility] Comment on above: Order Comment: MAU CTOR TO SPECIFY Performed By: #### L 500.4050, L100.0100 #### [facility] Laboratory [address] [place], [address] RBC 0 SEEN Normal 0-5 [facility] Comment on above: Order Comment: MAU CTOR TO SPECIFY Performed By: #### L 500.4050, L100.0100 #### [facility] Laboratory [address] [place], [address] Urine clarityOrdered By: Ayad Carney on 09-18-2024 Clarity (U) Clear Clear [facility] Urine color determinationOrd ered By: Augustin Carney on 09-18-2024 Color (U) Yellow Yellow [facility] Urine cultureOrdered By: Ayad Carney on 09-18-2024 Bacteria identified Cx Nom (U) Culture exhibits no growth. [facility] Urine glucose detectionOrder ed By: Augustin Carney on 09-18-2024 Glucose Ql (U) Normal mg/dl Normal [facility] Urine leukocyte esterase det ection by dipstickOrdered By: Augustin Carney on 09-18-2024 Leukocyte esterase Test strip Ql (U) 25 /ul High Negative [facility] Urine pHOrdered By: Augustin Chong ght on 09-18-2024 pH (U) 6.0 [pH] 5.0 - 8.0 [facility] Urine sediment bacteria coun t by microscopy (number/high power field)Ordered By: Augustin Carney on 09-18-2024 Bacteria LM.HPF (Urine sed) [#/Area] 0 /[HPF] None Seen [facility] Urine specific gravity measu rementOrdered By: Augustin Carney on 09-18-2024 Specific gravity (U) [Rel density] 1.015 1.002-1.030 [facility] Urine urobilinogen measureme ntOrdered By: Augustin Carney on 09-18-2024 Urobilinogen Ql (U) 1 mg/dl High Normal [facility] White blood cell (WBC) count Ordered By: Augustin Carney on 09-18-2024 WBC (Bld) [#/Vol] 4.4 10*3/uL 4.4-11.0 [facility] White blood cell countOrdere d By: Augustin Carney on 09-18-2024 White blood cell count 5-10 SEEN /hpf 0-5 [facility] CNNURSEon 09-15-2024 CNNURSE Normal [facility] Basic metabolic 2000 panelon 09-08-2024 Anion gap [Moles/Vol] 11 mmol/L Normal 8-15 [facility] Comment on above: Order Comment: Speci men Type: BLOOD SPECIMENOrdering Facility: [facility] Address: [address] [place] [address] Performed By: #### 2 4321-2 ####[facility] [id number] [place] [address] [place] Calcium [Mass/Vol] 8.8 mg/dL Normal 8.5-10.2 [facility] Comment on above: Order Comment: Speci men Type: BLOOD SPECIMENOrdering Facility: [facility] Address: [address] [place] [address] Performed By: #### 2 4321-2 ####[facility] [id number] [place] [address] [place] Chloride [Moles/Vol] 105 mmol/L Normal 98-107 [facility] Comment on above: Order Comment: Speci men Type: BLOOD SPECIMENOrdering Facility: [facility] Address: [address] [place] [address] Performed By: #### 2 4321-2 ####[facility] [id number] [place] [address] [place] CO2 [Moles/Vol] 22 mmol/L Normal 22-30 [facility] Comment on above: Order Comment: Speci men Type: BLOOD SPECIMENOrdering Facility: [facility] Address: [address] [place] [address] Performed By: #### 2 4321-2 ####[facility] [id number] [place] [address] [place] Creatinine [Mass/Vol] 0.99 mg/dL Normal 0.73-1.22 [facility] Comment on above: Order Comment: Speci men Type: BLOOD SPECIMENOrdering Facility: [facility] Address: [address] [place] [address] Performed By: #### 2 4321-2 ####[facility] [id number] [place] [address] [place] Creatinine and Glomerular filtration rate.predicted panel (S/P/Bld) 81 mL/min/1.73m??? Normal >=60 [facility] Comment on above: Order Comment: Speci men Type: BLOOD SPECIMENOrdering Facility: [facility] Address: [address] [place] [address] Result Comment: Beth mated Glomerular Filtration Rate [...] actual GFR. Performed By: #### 2 4321-2 ####[facility] [id number] [place] [address] [place] Glucose [Mass/Vol] 93 mg/dL Normal 74-99 [facility] Comment on above: Order Comment: Speci men Type: BLOOD SPECIMENOrdering Facility: [facility] Address: [address] [place] [address] Result Comment: The [place] [employer] (ADA) provides guidance for cutoff [...] Standards of Medical Care in Diabetes 2016, [place] [employer]. Diabetes Care. 2016.39(Suppl 1). Performed By: #### 2 4321-2 ####[facility] [id number] [place] [address] [place] Potassium [Moles/Vol] 3.9 mmol/L Normal 3.7-5.1 [facility] Comment on above: Order Comment: Speci men Type: BLOOD SPECIMENOrdering Facility: [facility] Address: [address] [place] [address] Performed By: #### 2 4321-2 ####[facility] [id number] [place] [address] [place] Sodium [Moles/Vol] 138 mmol/L Normal 136-144 [facility] Comment on above: Order Comment: Speci men Type: BLOOD SPECIMENOrdering Facility: [facility] Address: [address] [place] [address] Performed By: #### 2 4321-2 ####[facility] [id number] [place] [address] [place] Urea nitrogen [Mass/Vol] 23 mg/dL Normal 9-24 [facility] Comment on above: Order Comment: Speci men Type: BLOOD SPECIMENOrdering Facility: [facility] Address: [address] [place] [address] Performed By: #### 2 4321-2 ####[facility] [id number] [place] [address] [place] CBC W Auto Differential pane l (Bld)on 09-08-2024 Basophils (Bld) [#/Vol] 10*3/uL Normal <0.11 [facility] Comment on above: Order Comment: Speci men Type: BLOOD SPECIMENOrdering Facility: [facility] Address: [address] [place] [address] Performed By: #### 5 7021-8 ####[facility] [id number] [place] [address] [place] Basophils/100 WBC (Bld) 0.2 % Normal [facility] Comment on above: Order Comment: Speci men Type: BLOOD SPECIMENOrdering Facility: [facility] Address: [address] [place] [address] Performed By: #### 5 7021-8 ####[facility] [id number] [place] [address] [place] Differential cell count method Nom (Bld) Auto Normal [facility] Comment on above: Order Comment: Speci men Type: BLOOD SPECIMENOrdering Facility: [facility] Address: [address] [place] [address] Performed By: #### 5 7021-8 ####[facility] [id number] [place] [address] [place] Eosinophils (Bld) [#/Vol] 0.24 10*3/uL Normal <0.46 [facility] Comment on above: Order Comment: Speci men Type: BLOOD SPECIMENOrdering Facility: [facility] Address: [address] [place] [address] Performed By: #### 5 7021-8 ####[facility] [id number] [place] [address] [place] Eosinophils/100 WBC (Bld) 3.7 % Normal [facility] Comment on above: Order Comment: Speci men Type: BLOOD SPECIMENOrdering Facility: [facility] Address: [address] [place] [address] Performed By: #### 5 7021-8 ####[facility] [id number] [place] [address] [place] Erythrocyte distribution width (RBC) [Ratio] 21.0 % High 11.5-15.0 [facility] Comment on above: Order Comment: Speci men Type: BLOOD SPECIMENOrdering Facility: [facility] Address: [address] [place] [address] Performed By: #### 5 7021-8 ####[facility] [id number] [place] [address] [place] Hematocrit (Bld) [Volume fraction] 27.9 % Low 39.0-51.0 [facility] Comment on above: Order Comment: Speci men Type: BLOOD SPECIMENOrdering Facility: [facility] Address: [address] [place] [address] Performed By: #### 5 7021-8 ####[facility] [id number] [place] [address] [place] Hemoglobin (Bld) [Mass/Vol] 8.5 g/dL Low 13.0-17.0 [facility] Comment on above: Order Comment: Speci men Type: BLOOD SPECIMENOrdering Facility: [facility] Address: [address] [place] [address] Performed By: #### 5 7021-8 ####[facility] [id number] [place] [address] [place] Immature granulocytes (Bld) [#/Vol] 0.07 10*3/uL Normal <0.10 [facility] Comment on above: Order Comment: Speci men Type: BLOOD SPECIMENOrdering Facility: [facility] Address: [address] [place] [address] Performed By: #### 5 7021-8 ####[facility] MILLWNCLIA [id number] [place] [address] [place] Immature granulocytes/100 WBC (Bld) 1.1 % Normal [facility] Comment on above: Order Comment: Speci men Type: BLOOD SPECIMENOrdering Facility: [facility] Address: [address] [place] [address] Performed By: #### 5 7021-8 ####[facility]ITALNCLIA [id number] [place] [address] [place] Lymphocytes (Bld) [#/Vol] 2.43 10*3/uL Normal 1.00-4.00 [facility] Comment on above: Order Comment: Speci men Type: BLOOD SPECIMENOrdering Facility: [facility] Address: [address] [place] [address] Performed By: #### 5 7021-8 ####[facility]ATIONL[facility] [id number] [place] [address] [place] Lymphocytes/100 WBC (Bld) 37.3 % Normal [facility] Comment on above: Order Comment: Speci men Type: BLOOD SPECIMENOrdering Facility: [facility] Address: [address] [place] [address] Performed By: #### 5 7021-8 ####[facility]ATIONL[facility] [id number] [place] [address] [place] MCH (RBC) [Entitic mass] 24.6 pg Low 26.0-34.0 [facility] Comment on above: Order Comment: Speci men Type: BLOOD SPECIMENOrdering Facility: [facility] Address: [address] [place] [address] Performed By: #### 5 7021-8 ####[facility] HOSPITALNCLIA [id number] [place] [address] [place] MCHC (RBC) [Mass/Vol] 30.5 g/dL Normal 30.5-36.0 [facility] Comment on above: Order Comment: Speci men Type: BLOOD SPECIMENOrdering Facility: [facility] Address: [address] [place] [address] Performed By: #### 5 7021-8 ####[facility] [id number] [place] [address] [place] MCV (RBC) [Entitic vol] 80.6 fL Normal 80.0-100.0 [facility] Comment on above: Order Comment: Speci men Type: BLOOD SPECIMENOrdering Facility: [facility] Address: [address] [place] [address] Performed By: #### 5 7021-8 ####[facility] [id number] [place] [address] [place] Monocytes (Bld) [#/Vol] 0.46 10*3/uL Normal <0.87 [facility] Comment on above: Order Comment: Speci men Type: BLOOD SPECIMENOrdering Facility: [facility] Address: [address] [place] [address] Performed By: #### 5 7021-8 ####[facility] [id number] [place] [address] [place] Monocytes/100 WBC (Bld) 7.1 % Normal [facility] Comment on above: Order Comment: Speci men Type: BLOOD SPECIMENOrdering Facility: [facility] Address: [address] [place] [address] Performed By: #### 5 7021-8 ####[facility]ITALNCCENTR[facility] [id number] [place] [address] [place] Neutrophils (Bld) [#/Vol] 3.31 10*3/uL Normal 1.45-7.50 [facility] Comment on above: Order Comment: Speci men Type: BLOOD SPECIMENOrdering Facility: [facility] Address: [address] [place] [address] Performed By: #### 5 7021-8 ####[facility] HOSPITALNCCENTRAL VALLEY [facility] [id number] [place] [address] [place] Neutrophils/100 WBC (Bld) 50.6 % Normal [facility] Comment on above: Order Comment: Speci men Type: BLOOD SPECIMENOrdering Facility: [facility] Address: [address] [place] [address] Performed By: #### 5 7021-8 ####[facility] [id number] [place] [address] [place] Nucleated RBC (Bld) [#/Vol] 10*3/uL Normal <0.01 [facility] Comment on above: Order Comment: Speci men Type: BLOOD SPECIMENOrdering Facility: [facility] Address: [address] [place] [address] Performed By: #### 5 7021-8 ####[facility] HOSPITALNCLI [id number] [place] [address] [place] Nucleated RBC/100 WBC (Bld) [Ratio] 0.0 /100 WBC Normal [facility] Comment on above: Order Comment: Speci men Type: BLOOD SPECIMENOrdering Facility: [facility] Address: [address] [place] [address] Performed By: #### 5 7021-8 ####[facility]ITALNCCENTR[facility] [id number] [place] [address] [place] Platelet mean volume (Bld) [Entitic vol] 8.4 fL Low 9.0-12.7 [facility] Comment on above: Order Comment: Speci men Type: BLOOD SPECIMENOrdering Facility: [facility] Address: [address] [place] [address] Performed By: #### 5 7021-8 ####[facility] S[place] JETERNCKATERINA [id number] [address] Platelets (Bld) [#/Vol] 196 10*3/uL Normal 150-400 [facility] Comment on above: Order Comment: Speci men Type: BLOOD SPECIMENOrdering Facility: [facility] Address: [address] [place] [address] Performed By: #### 5 7021-8 ####[facility] CORONANCLIA [id number] [place] [address] [place] RBC (Bld) [#/Vol] 3.46 10*6/uL Low 4.20-6.00 [facility] Comment on above: Order Comment: Speci men Type: BLOOD SPECIMENOrdering Facility: [facility] Address: [address] [place] [address] Performed By: #### 5 7021-8 ####[facility] BIENVENIDOHOUSTONNCLIA [id number] [place] [address] [place] WBC (Bld) [#/Vol] 6.52 10*3/uL Normal 3.70-11.00 [facility] Comment on above: Order Comment: Speci men Type: BLOOD SPECIMENOrdering Facility: [facility] Address: [address] [place] [address] Performed By: #### 5 7021-8 ####[facility] HOSPITALNCLIA [id number] [place] [address] [facility] OF APR[place] CNOVSPon 09-08-2024 CNOVSP Normal [facility] CNNURSEon 08-27-2024 CNNURSE Normal [facility] FERRITINon 08-12-2024 Ferritin [Mass/Vol] 835 ng/mL High 30.3 - 565.7 ng/mL [facility] Ferritin [Mass/Vol]on 2024 Interpretation and review of laboratory results Abnormal [facility] 25(OH)D3 SerPl-mCncon 2024 25-hydroxyvitamin D3 [Mass/Vol] 19.1 ng/mL Low 31.0-80.0 [facility] Comment on above: Order Comment: Bassam hong Type: BLOOD SPECIMENOrdering Facility: [facility] Address: [address] [place] [address] Result Comment: Clas sification of 25 [place] Vitamin D status:Deficiency/Insufficiency: < or = 30 ng/ml.Sufficiency/Optimal Levels: 31-80 ng/mLToxicity: > 100 ng/mL.Test performed by chemiluminescent immunoassay. Performed By: #### 1 989-3 ####[facility] LABCLIA [id number] [place] [address] [place] 25-hydroxyvitamin D3 [Mass/V ol]on 08-11-2024 Interpretation and review of laboratory results Abnormal [facility] The reference range interval was based on an analysis of samples from healthy adults and may not pertain to children from 0-18 years old. [facility] Basic metabolic 2000 panelon 08-11-2024 Anion gap [Moles/Vol] 8 mmol/L Normal 8-15 [facility] Comment on above: Order Comment: Bassam hong Type: BLOOD SPECIMENOrdering Facility: [facility] Address: [address] [place] [address] Performed By: #### 2 4321-2 ####[facility] S[facility] HOSPITALCAESARWHEAVENA [id number] [place] [address] [place] Calcium [Mass/Vol] 9.4 mg/dL Normal 8.5-10.2 [facility] Comment on above: Order Comment: Jose Manueli hal Type: BLOOD SPECIMENOrdering Facility: [facility] Address: [address] [place] [address] Performed By: #### 2 4321-2 ####[facility] S[facility] MILLTOWNCLIA [id number] [place] [address] [place] Chloride [Moles/Vol] 101 mmol/L Normal 98-107 [facility] Comment on above: Order Comment: Speci men Type: BLOOD SPECIMENOrdering Facility: [facility] Address: [address] [place] [address] Performed By: #### 2 4321-2 ####[facility] [id number] [place] [address] [place] CO2 [Moles/Vol] 28 mmol/L Normal 22-30 [facility] Comment on above: Order Comment: Speci men Type: BLOOD SPECIMENOrdering Facility: [facility] Address: [address] [place] [address] Performed By: #### 2 4321-2 ####[facility] [id number] [place] [address] [place] Creatinine [Mass/Vol] 1.05 mg/dL Normal 0.73-1.22 [facility] Comment on above: Order Comment: Speci men Type: BLOOD SPECIMENOrdering Facility: [facility] Address: [address] [place] [address] Performed By: #### 2 4321-2 ####[facility] [id number] [place] [address] [place] [facility] Creatinine and Glomerular filtration rate.predicted panel (S/P/Bld) 76 mL/min/1.73m??? Normal >=60 [facility] Comment on above: Order Comment: Speci men Type: BLOOD SPECIMENOrdering Facility: [facility] Address: [address] [place] [address] Result Comment: Beth mated Glomerular Filtration Rate [...] actual GFR. Performed By: #### 2 4321-2 ####[facility] BIENVENIDOHOUSTONNCKATERINA [id number] [place] [address] [place] Glucose [Mass/Vol] 97 mg/dL Normal 74-99 [facility] Comment on above: Order Comment: Speci men Type: BLOOD SPECIMENOrdering Facility: [facility] Address: [address] [place] [address] Result Comment: The [place] Diabetes Association (ADA) provides guidance for cutoff [...] Standards of Medical Care in Diabetes 2016, [place] Diabetes Association. Diabetes Care. 2016.39(Suppl 1). Performed By: #### 2 4321-2 ####[facility] ERA [id number] [place] [address] [place] Potassium [Moles/Vol] 4.1 mmol/L Normal 3.7-5.1 [facility] Comment on above: Order Comment: Speci men Type: BLOOD SPECIMENOrdering Facility: [facility] Address: [address] [place] [address] Performed By: #### 2 4321-2 ####[facility] ERA [id number] [place] [address] [place] Sodium [Moles/Vol] 137 mmol/L Normal 136-144 [facility] Comment on above: Order Comment: Speci men Type: BLOOD SPECIMENOrdering Facility: [facility] Address: [address] [place] [id number] Performed By: #### 2 4321-2 ####[facility] MILLWNCLIA [id number] [place] [address] [place] Urea nitrogen [Mass/Vol] 21 mg/dL Normal 9-24 [facility] Comment on above: Order Comment: Speci men Type: BLOOD SPECIMENOrdering Facility: [facility] Address: [address] [place] [address] Performed By: #### 2 4321-2 ####[facility] MILLWNCLIA [id number] [place] [address] [place] CBC W Auto Differential pane l (Bld)on 08-11-2024 Basophils (Bld) [#/Vol] 10*3/uL Normal <0.11 [facility] Comment on above: Order Comment: Speci men Type: BLOOD SPECIMENOrdering Facility: [facility] Address: [address] [place] [address] Performed By: #### 5 7021-8 ####[facility]ATIONLIA [id number] [place] [address] [place] Basophils/100 WBC (Bld) 0.2 % Normal [facility] Comment on above: Order Comment: Speci men Type: BLOOD SPECIMENOrdering Facility: [facility] Address: [address] [place] [address] Performed By: #### 5 7021-8 ####[facility] HOSPITALWNCLIA [id number] [address] [place] Differential cell count method Nom (Bld) Auto Normal [facility] Comment on above: Order Comment: Speci men Type: BLOOD SPECIMENOrdering Facility: [facility] Address: [address] [place] [address] Performed By: #### 5 7021-8 ####[facility] HOSPITALNCLIA [id number] [place] [address] [place] Eosinophils (Bld) [#/Vol] 0.23 10*3/uL Normal <0.46 [facility] Comment on above: Order Comment: Speci men Type: BLOOD SPECIMENOrdering Facility: [facility] Address: [address] [place] [address] Performed By: #### 5 7021-8 ####[facility]ITALNCCENTR[facility] [id number] [place] [address] [place] Eosinophils/100 WBC (Bld) 4.7 % Normal [facility] Comment on above: Order Comment: Speci men Type: BLOOD SPECIMENOrdering Facility: [facility] Address: [address] [place] [address] Performed By: #### 5 7021-8 ####[facility]ITALNCCENTR[facility] [id number] [place] [address] [place] Erythrocyte distribution width (RBC) [Ratio] 20.4 % High 11.5-15.0 [facility] Comment on above: Order Comment: Speci men Type: BLOOD SPECIMENOrdering Facility: [facility] Address: [address] [place] [address] Performed By: #### 5 7021-8 ####[facility] HOSPITALNCLI [id number] [place] [address] [place] Hematocrit (Bld) [Volume fraction] 30.9 % Low 39.0-51.0 [facility] Comment on above: Order Comment: Speci men Type: BLOOD SPECIMENOrdering Facility: [facility] Address: [address] [place] [address] Performed By: #### 5 7021-8 ####[facility] HOSPITALNCLIA [id number] [place] [address] [place] Hemoglobin (Bld) [Mass/Vol] 9.5 g/dL Low 13.0-17.0 [facility] Comment on above: Order Comment: Speci men Type: BLOOD SPECIMENOrdering Facility: [facility] Address: [address] [place] [address] Performed By: #### 5 7021-8 ####[facility] WAGNERA [id number] [place] [address] [place] Immature granulocytes (Bld) [#/Vol] 10*3/uL Normal <0.10 [facility] Comment on above: Order Comment: Speci men Type: BLOOD SPECIMENOrdering Facility: [facility] Address: [address] [place] [address] Performed By: #### 5 7021-8 ####[facility] HOSPITALANGELICAA [id number] [place] [address] [place] Immature granulocytes/100 WBC (Bld) 0.2 % Normal [facility] Comment on above: Order Comment: Speci men Type: BLOOD SPECIMENOrdering Facility: [facility] Address: [address] [place] [address] Performed By: #### 5 7021-8 ####[facility] ERA [id number] [place] [address] [place] Lymphocytes (Bld) [#/Vol] 2.26 10*3/uL Normal 1.00-4.00 [facility] Comment on above: Order Comment: Speci men Type: BLOOD SPECIMENOrdering Facility: [facility] Address: [address] [place] [address] Performed By: #### 5 7021-8 ####[facility]OUNDATIONLIA [id number] [place] [address] [place] Lymphocytes/100 WBC (Bld) 46.3 % Normal [facility] Comment on above: Order Comment: Speci men Type: BLOOD SPECIMENOrdering Facility: [facility] Address: [address] [place] [address] Performed By: #### 5 7021-8 ####[facility] HOSPITALNCLIA [id number] [place] [address] [place] MCH (RBC) [Entitic mass] 24.2 pg Low 26.0-34.0 [facility] Comment on above: Order Comment: Speci men Type: BLOOD SPECIMENOrdering Facility: [facility] Address: [address] [place] [address] Performed By: #### 5 7021-8 ####[facility] FOUNDATIONKATERIN [id number] [place] [address] [place] MCHC (RBC) [Mass/Vol] 30.7 g/dL Normal 30.5-36.0 [facility] Comment on above: Order Comment: Speci men Type: BLOOD SPECIMENOrdering Facility: [facility] Address: [address] [place] [address] Performed By: #### 5 7021-8 ####[facility] [id number] [place] [address] [place] MCV (RBC) [Entitic vol] 78.8 fL Low 80.0-100.0 [facility] Comment on above: Order Comment: Speci men Type: BLOOD SPECIMENOrdering Facility: [facility] Address: [address] [place] [address] Performed By: #### 5 7021-8 ####[facility] [id number] [place] [address] [place] Monocytes (Bld) [#/Vol] 0.36 10*3/uL Normal <0.87 [facility] Comment on above: Order Comment: Speci men Type: BLOOD SPECIMENOrdering Facility: [facility] Address: [address] [place] [address] Performed By: #### 5 7021-8 ####[facility]ITALNCCENTR[facility] [id number] [place] [id number] [place] Monocytes/100 WBC (Bld) 7.4 % Normal [facility] Comment on above: Order Comment: Speci men Type: BLOOD SPECIMENOrdering Facility: [facility] Address: [address] [place] [address] Performed By: #### 5 7021-8 ####[facility] ERA [id number] [place] [address] [place] Neutrophils (Bld) [#/Vol] 2.01 10*3/uL Normal 1.45-7.50 [facility] Comment on above: Order Comment: Speci men Type: BLOOD SPECIMENOrdering Facility: [facility] Address: [address] [place] [address] Performed By: #### 5 7021-8 ####[facility] ERA [id number] [place] [address] [place] Neutrophils/100 WBC (Bld) 41.2 % Normal [facility] Comment on above: Order Comment: Speci men Type: BLOOD SPECIMENOrdering Facility: [facility] Address: [address] [place] [address] Performed By: #### 5 7021-8 ####[facility] ERA [id number] [place] [address] [place] Nucleated RBC (Bld) [#/Vol] 10*3/uL Normal <0.01 [facility] Comment on above: Order Comment: Speci men Type: BLOOD SPECIMENOrdering Facility: [facility] Address: [address] [place] [address] Performed By: #### 5 7021-8 ####[facility] ERA [id number] [place] [address] [place] Nucleated RBC/100 WBC (Bld) [Ratio] 0.0 /100 WBC Normal [facility] Comment on above: Order Comment: Speci men Type: BLOOD SPECIMENOrdering Facility: [facility] Address: [address] [place], [place] [address] Performed By: #### 5 7021-8 ####[facility] CORONANCMJ [id number] [place] [address] [place] Platelet mean volume (Bld) [Entitic vol] 8.6 fL Low 9.0-12.7 [facility] Comment on above: Order Comment: Speci men Type: BLOOD SPECIMENOrdering Facility: [facility] Address: [address] [place], [place] [address] Performed By: #### 5 7021-8 ####[facility] BIENVENIDOHOUSTONNCMJ [id number] [place] [address] [place] Platelets (Bld) [#/Vol] 162 10*3/uL Normal 150-400 [facility] Comment on above: Order Comment: Speci men Type: BLOOD SPECIMENOrdering Facility: [facility] Address: [address] [place] [address] Performed By: #### 5 7021-8 ####[facility] HOSPITALNCA [id number] [place] [address] [place] RBC (Bld) [#/Vol] 3.92 10*6/uL Low 4.20-6.00 [facility] Comment on above: Order Comment: Speci men Type: BLOOD SPECIMENOrdering Facility: [facility] Address: [address] [place] [address] Performed By: #### 5 7021-8 ####[facility]ITALNCLIA [id number] [place] [address] [place] WBC (Bld) [#/Vol] 4.88 10*3/uL Normal 3.70-11.00 [facility] Comment on above: Order Comment: Speci men Type: BLOOD SPECIMENOrdering Facility: [facility] Address: [address] [place] [address] Performed By: #### 5 7021-8 ####[facility] MILLTONCLIA [id number] [place] [id number] [place] CNOVSPon 08-11-2024 CNOVSP Normal [facility] Ferritin SerPl-mCncon 2024 Ferritin [Mass/Vol] 835.0 ng/mL High 30.3-565.7 [facility] Comment on above: Order Comment: Speci men Type: BLOOD SPECIMENOrdering Facility: [facility] Address: [address] [place] [address] Performed By: #### 2 276-4, 71139-5 ####[facility] LABCLIA [id number] [place] [address] [place] Iron and Iron binding capaci ty panelon 08-11-2024 Interpretation and review of laboratory results Abnormal [facility] Iron [Mass/Vol] 190 ug/dL High 41 - 186 ug/dL [facility] Iron binding capacity [Mass/Vol] 259 ug/dL 232 - 386 ug/dL [facility] Iron/TIBC [Molar ratio] 73.4 % High 15.0 - 57.0 % [facility] Iron [Mass/Vol] 190 ug/dL High 41-186 [facility] Comment on above: Order Comment: Speci men Type: BLOOD SPECIMENOrdering Facility: [facility] Address: [address] [id number] Performed By: #### 2 276-4, 14267-4 ####[facility] LABCLIA [id number] [place] [address] [place] Iron binding capacity [Mass/Vol] 259 ug/dL Normal 232-386 [facility] Comment on above: Order Comment: Speci men Type: BLOOD SPECIMENOrdering Facility: [facility] Address: [address] [id number] Performed By: #### 2 276-4, 33452-0 ####[facility] LABCLIA [id number] [place] [address] [place] Iron/TIBC [Molar ratio] 73.4 % High 15.0-57.0 [facility] Comment on above: Order Comment: Speci men Type: BLOOD SPECIMENOrdering Facility: [facility] Address: [address] [place] [address] Performed By: #### 2 276-4, 33981-6 ####[facility]ITALIA [id number] [place] [address] [place] PSA SerPl-ncon 08-11-2024 Prostate specific Ag [Mass/Vol] ng/mL Normal <2.60 [facility] Comment on above: Order Comment: Speci men Type: BLOOD SPECIMENOrdering Facility: [facility] Address: [address] [place] [address] Result Comment: Tota l PSA test methodology used is the Electrochemiluminescence Immunoassay by [employer]. Total PSA values by differing methodologies cannot be interchanged. Performed By: #### 2 857-1 ####[facility]PITALIA [id number] [place] [address] [place] VITAMIN D 25 HYDROXYon 08-11 25-hydroxyvitamin D3 [Mass/Vol] 19.1 ng/mL Low 31.0 - 80.0 ng/mL [facility] Comment on above: Classification of 25 [place] Vitamin D status: Deficiency/Insufficiency: < or = 30 ng/ml. Sufficiency/Optimal Levels: 31-80 ng/mL Toxicity: > 100 ng/mL. Test performed by chemiluminescent immunoassay. ECG COMPLETEon 08-10-2024 Atrial Rate 95 BPM [facility] Calculated P [place] [address] [facility] Calculated R [place] -[address] [facility] Calculated T [place] [address] [facility] P-R Interval 136 ms [facility] QRS Duration 76 ms [facility] QT Interval 360 ms [facility] QTC Calculation (Bazett) 452 ms [facility] Ventricular Rate 95 BPM [facility] NORMAL SINUS RHYTHM ANTERIOR T WAVE ABNORMALITY ABNORMAL ECG Confirmed by MD JOZEF, QARAB ([id number]) on 08/10/2024 11:55:46 AM [facility] NAME : ROSA CASTILLO PID : [id number] : 1955 Gender : Male Race : ORD : Procedure Date : Aug 09 2024 15:29:24 Edit Date : Aug 10 2024 11:55:48 Diagnosis: NORMAL SINUS RHYTHM ANTERIOR T WAVE ABNORMALITY ABNORMAL ECG Confirmed by MD HASKINS QARAB ([id number]) on 08/10/2024 11:55:46 AM Test Reason : Location : 211 : MECARD Overread By : MD HASKINS QARAB Edited By : MD HASKINS QARAB Referred By : DORCAS CHAMPAGNE Acquired by : TANJA NINO, [facility] CNOVon 08-09-2024 CNOV Normal [facility] [id number] 08-09-2024 ECG01 Normal [facility] Basic metabolic 2000 panelon 07-14-2024 Anion gap [Moles/Vol] 9 mmol/L Normal 8-15 [facility] Comment on above: Order Comment: Speci men Type: BLOOD SPECIMENOrdering Facility: [facility] Address: [address] [place] [address] Performed By: #### 2 4321-2 ####[facility] [id number] [place] [address] [place] Calcium [Mass/Vol] 9.3 mg/dL Normal 8.5-10.2 [facility] Comment on above: Order Comment: Speci men Type: BLOOD SPECIMENOrdering Facility: [facility] Address: [address] [place] [address] Performed By: #### 2 4321-2 ####[facility] [id number] [place] [address] [place] Chloride [Moles/Vol] 102 mmol/L Normal 98-107 [facility] Comment on above: Order Comment: Speci men Type: BLOOD SPECIMENOrdering Facility: [facility] Address: [address] [place] [address] Performed By: #### 2 4321-2 ####[facility]ITALNCLIA [id number] [place] [address] [place] CO2 [Moles/Vol] 28 mmol/L Normal 22-30 [facility] Comment on above: Order Comment: Speci men Type: BLOOD SPECIMENOrdering Facility: [facility] Address: [address] [place] [address] Performed By: #### 2 4321-2 ####[facility]ATION[facility] [id number] [place] [address] [place] Creatinine [Mass/Vol] 1.08 mg/dL Normal 0.73-1.22 [facility] Comment on above: Order Comment: Speci men Type: BLOOD SPECIMENOrdering Facility: [facility] Address: [address] [place] [address] Performed By: #### 2 4321-2 ####[facility] [id number] [place] [address] [place] Creatinine and Glomerular filtration rate.predicted panel (S/P/Bld) 73 mL/min/1.73m??? Normal >=60 [facility] Comment on above: Order Comment: Speci men Type: BLOOD SPECIMENOrdering Facility: [facility] Address: [address] [place] [address] Result Comment: Beth mated Glomerular Filtration Rate [...] actual GFR. Performed By: #### 2 4321-2 ####[facility] HOSPITALWNCLIA [id number] [place] [address] [place] Glucose [Mass/Vol] 99 mg/dL Normal 74-99 [facility] Comment on above: Order Comment: Bassam hong Type: BLOOD SPECIMENOrdering Facility: [facility] Address: [address] [place] [address] Result Comment: The [place] Diabetes Association (ADA) provides guidance for cutoff [...] Standards of Medical Care in Diabetes 2016, [place] Diabetes Association. Diabetes Care. 2016.39(Suppl 1). Performed By: #### 2 4321-2 ####[facility] HOSPITALWMTLIA [id number] [place] [address] [place] Potassium [Moles/Vol] 4.1 mmol/L Normal 3.7-5.1 [facility] Comment on above: Order Comment: Bassam hong Type: BLOOD SPECIMENOrdering Facility: [facility] Address: [address] [place] [address] Performed By: #### 2 4321-2 ####[facility] HOSPITALWNCLIA [id number] [place] [address] [place] Sodium [Moles/Vol] 139 mmol/L Normal 136-144 [facility] Comment on above: Order Comment: Bassam hong Type: BLOOD SPECIMENOrdering Facility: [facility] Address: [address] [place], [place] [address] Performed By: #### 2 4321-2 ####[facility] HOSPITALNCLIA [id number] [place] [address] [place] Urea nitrogen [Mass/Vol] 22 mg/dL Normal 9-24 [facility] Comment on above: Order Comment: Speci men Type: BLOOD SPECIMENOrdering Facility: [facility] Address: [address] [place] [address] Performed By: #### 2 4321-2 ####[facility] BIENVENIDOMariannaNCKATERINA [id number] [place] [address] [place] CBC W Auto Differential pane l (Bld)on 07-14-2024 Basophils (Bld) [#/Vol] 10*3/uL Normal <0.11 [facility] Comment on above: Order Comment: Speci men Type: BLOOD SPECIMENOrdering Facility: [facility] Address: [address] [place] [address] Performed By: #### 5 7021-8 ####[facility] [id number] [place] [address] [place] Basophils/100 WBC (Bld) 0.4 % Normal [facility] Comment on above: Order Comment: Speci men Type: BLOOD SPECIMENOrdering Facility: [facility] Address: [address] [place] [address] Performed By: #### 5 7021-8 ####[facility] ERA [id number] [place] [address] [place] Differential cell count method Nom (Bld) Auto Normal [facility] Comment on above: Order Comment: Speci men Type: BLOOD SPECIMENOrdering Facility: [facility] Address: [address] [place] [address] Performed By: #### 5 7021-8 ####[facility] ERA [id number] [place] [address] [place] Eosinophils (Bld) [#/Vol] 0.24 10*3/uL Normal <0.46 [facility] Comment on above: Order Comment: Speci men Type: BLOOD SPECIMENOrdering Facility: [facility] Address: [address] [place] [address] Performed By: #### 5 7021-8 ####[facility] MILLWNCLIA [id number] [place] [address] [place] Eosinophils/100 WBC (Bld) 4.8 % Normal [facility] Comment on above: Order Comment: Speci men Type: BLOOD SPECIMENOrdering Facility: [facility] Address: [address] [place] [address] Performed By: #### 5 7021-8 ####[facility] HOSPITALANGELICALIA [id number] [place] [address] [place] Erythrocyte distribution width (RBC) [Ratio] 20.7 % High 11.5-15.0 [facility] Comment on above: Order Comment: Speci men Type: BLOOD SPECIMENOrdering Facility: [facility] Address: [address] [place] [address] Performed By: #### 5 7021-8 ####[facility] HOSPITALHEAVENA [id number] [place] [address] [place] Hematocrit (Bld) [Volume fraction] 31.1 % Low 39.0-51.0 [facility] Comment on above: Order Comment: Speci men Type: BLOOD SPECIMENOrdering Facility: [facility] Address: [address] [place] [address] Performed By: #### 5 7021-8 ####[facility] HOSPITALANGELICALIA [id number] [place] [address] [place] Hemoglobin (Bld) [Mass/Vol] 9.4 g/dL Low 13.0-17.0 [facility] Comment on above: Order Comment: Speci men Type: BLOOD SPECIMENOrdering Facility: [facility] Address: [address] [place] [address] Performed By: #### 5 7021-8 ####[facility] HOSPITALNCLIA [id number] [address] [place] [address] [place] Immature granulocytes (Bld) [#/Vol] 10*3/uL Normal <0.10 [facility] Comment on above: Order Comment: Speci men Type: BLOOD SPECIMENOrdering Facility: [facility] Address: [address] [place] [address] Performed By: #### 5 7021-8 ####[facility] HOSPITALNCCENTRAL VALLEY [facility] [id number] [place] [address] [place] Immature granulocytes/100 WBC (Bld) 0.4 % Normal [facility] Comment on above: Order Comment: Speci men Type: BLOOD SPECIMENOrdering Facility: [facility] Address: [address] [place] [address] Performed By: #### 5 7021-8 ####[facility] HOSPITALNCLI [id number] [place] [address] [place] Lymphocytes (Bld) [#/Vol] 2.11 10*3/uL Normal 1.00-4.00 [facility] Comment on above: Order Comment: Speci men Type: BLOOD SPECIMENOrdering Facility: [facility] Address: [address] [place] [address] Performed By: #### 5 7021-8 ####[facility] [id number] [place] [address] [place] Lymphocytes/100 WBC (Bld) 41.9 % Normal [facility] Comment on above: Order Comment: Speci men Type: BLOOD SPECIMENOrdering Facility: [facility] Address: [address] [place] [address] Performed By: #### 5 7021-8 ####[facility] HOSPITALNCLIA [id number] [place] [address] [place] MCH (RBC) [Entitic mass] 24.3 pg Low 26.0-34.0 [facility] Comment on above: Order Comment: Speci men Type: BLOOD SPECIMENOrdering Facility: [facility] Address: [address] [place] [address] Performed By: #### 5 7021-8 ####[facility]W [id number] [place] [address] [place] MCHC (RBC) [Mass/Vol] 30.2 g/dL Low 30.5-36.0 [facility] Comment on above: Order Comment: Speci men Type: BLOOD SPECIMENOrdering Facility: [facility] Address: [address] [place] [address] Performed By: #### 5 7021-8 ####[facility] HOSPITALCINDY [id number] [place] [address] [place] MCV (RBC) [Entitic vol] 80.4 fL Normal 80.0-100.0 [facility] Comment on above: Order Comment: Speci men Type: BLOOD SPECIMENOrdering Facility: [facility] Address: [address] [place] [address] Performed By: #### 5 7021-8 ####[facility] HOSPITALCINDY [id number] [place] [address] [place] Monocytes (Bld) [#/Vol] 0.36 10*3/uL Normal <0.87 [facility] Comment on above: Order Comment: Speci men Type: BLOOD SPECIMENOrdering Facility: [facility] Address: [address] [place] [address] Performed By: #### 5 7021-8 ####[facility] HOSPITALHEAVENA [id number] [place] [address] [place] Monocytes/100 WBC (Bld) 7.2 % Normal [facility] Comment on above: Order Comment: Speci men Type: BLOOD SPECIMENOrdering Facility: [facility] Address: [address] [place] [address] Performed By: #### 5 7021-8 ####[facility] MILLWNCLIA [id number] [place] [address] [place] Neutrophils (Bld) [#/Vol] 2.28 10*3/uL Normal 1.45-7.50 [facility] Comment on above: Order Comment: Speci men Type: BLOOD SPECIMENOrdering Facility: [facility] Address: [address] [place] [address] Performed By: #### 5 7021-8 ####[facility]ATIONLIA [id number] [place] [address] [place] Neutrophils/100 WBC (Bld) 45.3 % Normal [facility] Comment on above: Order Comment: Speci men Type: BLOOD SPECIMENOrdering Facility: [facility] Address: [address] [place] [address] Performed By: #### 5 7021-8 ####[facility]ATIONLIA [id number] [place] [address] [place] Nucleated RBC (Bld) [#/Vol] 10*3/uL Normal <0.01 [facility] Comment on above: Order Comment: Speci men Type: BLOOD SPECIMENOrdering Facility: [facility] Address: [address] [place] [address] Performed By: #### 5 7021-8 ####[facility]ATIONLIA [id number] [place] [address] [place] Nucleated RBC/100 WBC (Bld) [Ratio] 0.0 /100 WBC Normal [facility] Comment on above: Order Comment: Speci men Type: BLOOD SPECIMENOrdering Facility: [facility] Address: [address] [place] [address] Performed By: #### 5 7021-8 ####[facility] HOSPITALNCLIA [id number] [place] [address] [place] Platelet mean volume (Bld) [Entitic vol] 8.4 fL Low 9.0-12.7 [facility] Comment on above: Order Comment: Speci men Type: BLOOD SPECIMENOrdering Facility: [facility] Address: [address] [place] [address] Performed By: #### 5 7021-8 ####[facility] BIENVENIDOMariannaNCLIA [id number] [place] [address] [place] Platelets (Bld) [#/Vol] 171 10*3/uL Normal 150-400 [facility] Comment on above: Order Comment: Speci men Type: BLOOD SPECIMENOrdering Facility: [facility] Address: [address] [place] [address] Performed By: #### 5 7021-8 ####[facility] HOS[facility]ITALNCLIA [id number] [place] [address] [place] RBC (Bld) [#/Vol] 3.87 10*6/uL Low 4.20-6.00 [facility] Comment on above: Order Comment: Speci men Type: BLOOD SPECIMENOrdering Facility: [facility] Address: [address] [place] [address] Performed By: #### 5 7021-8 ####[facility] HOSPITALNCLIA [id number] [place] [address] [place] WBC (Bld) [#/Vol] 5.03 10*3/uL Normal 3.70-11.00 [facility] Comment on above: Order Comment: Speci men Type: BLOOD SPECIMENOrdering Facility: [facility] Address: [address] [place] [address] Performed By: #### 5 7021-8 ####[facility] HOSPITALNCLIA [id number] [place] [address] [place] CNNURSEon 07-07-2024 CNNURSE Normal [facility] CNPNon 07-07-2024 CNPN Normal [facility] CNOVon 06-24-2024 CNOV Normal [facility] CNOVon 06-17-2024 CNOV Normal [facility] CNPNon 06-17-2024 CNPN Normal [facility] Pathology biopsy report Regino (Tiss)on 06-17-2024 AP DISCLAIMER Normal [facility] Comment on above: Order Comment: Speci men Type: TISSUE SPECIMENOrdering Facility: [facility] Address: [address] [place] [address] Result Comment: Ty de la rosa Developed Test (LDT) Disclaimer:Performance characteristics of immunohistochemical, immunofluorescent, and chromogenic in-situ hybridization tests have been determined by the performing laboratory within [facility]'s [facility] Pathology and Laboratory Medicine Department ([facility], [facility], [facility], [facility], [facility], [facility], or [facility]) in a manner consistent with CLIA requirements. One or more of these tests may not have been cleared or approved by the FDA. [facility] is regulated under CLIA as qualified to perform high-complexity testing. These tests are used for clinical purposes. These should not be regarded as investigational or for research. Positive and negative controls stain appropriately. Performed By: #### 6 6121-5 ####[facility] LABCLIA [id number] [place] [address] [place] CASE REPORT Normal [facility] Comment on above: Order Comment: Speci men Type: TISSUE SPECIMENOrdering Facility: [facility] Address: [address] [place] [address] Result Comment: Surg ica Pathology Report Case: [id number] Provider: Madelaine Bronson MD Collected: 06/17/2024 10:36 AMOrdering Location: Dermatology Received: 06/17/2024 03:49 PMPathologist: Candace Eugene MDSpecimen: Skin, Excision, right crown of scalp Performed By: #### 6 6121-5 ####[facility] LABCLIA [id number] [address] STATES OF [facility] CLINICAL HISTORY bx proven SCC, Mohs case, non- marginal tissue ( mod diff- SCC) . Suspicious for intravascular SCC, r/o PNI, LVI Normal [facility] Comment on above: Order Comment: Speci men Type: TISSUE SPECIMENOrdering Facility: [facility] Address: [address] [place] [address] Performed By: #### 6 6121-5 ####[facility] LABCLIA [id number] [address] DIAGNOSIS COMMENT A. Perineural invasi on and lymphovascular space invasion are not identified. The maximum depth of the transected tumor is 8 mm. Normal [facility] Comment on above: Order Comment: Speci men Type: TISSUE SPECIMENOrdering Facility: [facility] Address: [address] [place] [address] Performed By: #### 6 6121-5 ####[facility] LABCLIA [id number] [address] FINAL DIAGNOSIS Normal [facility] Comment on above: Order Comment: Speci men Type: TISSUE SPECIMENOrdering Facility: [facility] Address: [address] [place] [address] Result Comment: A. 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, see comment.MADISON/LANG 06/21/2024 at 1001 EDT Performed By: #### 6 6121-5 ####[facility] LABCLIA [id number] [address] FINAL PERFORMING LAB Normal [facility] Comment on above: Order Comment: Speci men Type: TISSUE SPECIMENOrdering Facility: [facility] Address: [address] [place] [address] Result Comment: Diag nostic interpretation performed at: [facility], [address] [place] [address] CLIA# [id number] Director: Misha Prater MD Performed By: #### 6 6121-5 ####[facility] LABCLIA [id number] [place] [address] [place] GROSS DESCRIPTION Normal [facility] Comment on above: Order Comment: Speci men Type: TISSUE SPECIMENOrdering Facility: [facility] Address: [address] [place] [address] Result Comment: A. S kin, ExcisionReceived in formalin are two irregular segments of skin and subcutaneous tissue aggregating to 2.5 x 2.1 x 0.5 cm. The specimens were previously inked by the surgeon. Totally submitted in two cassettes.Gross examination performed at [facility], [address] [place] [address] 06/18/2024 3:36 AM Performed By: #### 6 6121-5 ####[facility] LABIA [id number] [place] [address] [place] Basic metabolic 2000 panelon 06-16-2024 Anion gap [Moles/Vol] 9 mmol/L Normal 8-15 [facility] Comment on above: Order Comment: Speci men Type: BLOOD SPECIMENOrdering Facility: [facility] Address: [address] [place] [address] Performed By: #### 2 4321-2 ####[facility] MILLTOWNCLIA [id number] [place] [address] [place] Calcium [Mass/Vol] 9.4 mg/dL Normal 8.5-10.2 [facility] Comment on above: Order Comment: Speci men Type: BLOOD SPECIMENOrdering Facility: [facility] Address: [address] [place] [address] Performed By: #### 2 4321-2 ####[facility] MILLTOWNCLIA [id number] [place] [address] [place] Chloride [Moles/Vol] 100 mmol/L Normal 98-107 [facility] Comment on above: Order Comment: Speci men Type: BLOOD SPECIMENOrdering Facility: [facility] Address: [address] [place] [address] Performed By: #### 2 4321-2 ####[facility] HOSPITALNCCENTRAL VALLEY [facility] [id number] [place] [address] [place] CO2 [Moles/Vol] 29 mmol/L Normal 22-30 [facility] Comment on above: Order Comment: Speci men Type: BLOOD SPECIMENOrdering Facility: [facility] Address: [address] [place] [address] Performed By: #### 2 4321-2 ####[facility] [id number] [place] [address] [place] Creatinine [Mass/Vol] 1.00 mg/dL Normal 0.73-1.22 [facility] Comment on above: Order Comment: Speci men Type: BLOOD SPECIMENOrdering Facility: [facility] Address: [address] [place] [address] Performed By: #### 2 4321-2 ####[facility] [id number] [place] [address] [place] Creatinine and Glomerular filtration rate.predicted panel (S/P/Bld) 80 mL/min/1.73m??? Normal >=60 [facility] Comment on above: Order Comment: Speci men Type: BLOOD SPECIMENOrdering Facility: [facility] Address: [address] [place] [address] Result Comment: Beth mated Glomerular Filtration Rate [...] actual GFR. Performed By: #### 2 4321-2 ####[facility] MILLTOWNCLIA [id number] [place] [address] [place] Glucose [Mass/Vol] 149 mg/dL High 74-99 [facility] Comment on above: Order Comment: Speci men Type: BLOOD SPECIMENOrdering Facility: [facility] Address: [address] [place] [address] Result Comment: The [place] Diabetes Association (ADA) provides guidance for cutoff [...] Standards of Medical Care in Diabetes 2016, [place] [employer]. Diabetes Care. 2016.39(Suppl 1). Performed By: #### 2 4321-2 ####[facility] HOSPITALNCLIA [id number] [place] [address] [place] Potassium [Moles/Vol] 3.9 mmol/L Normal 3.7-5.1 [facility] Comment on above: Order Comment: Speci men Type: BLOOD SPECIMENOrdering Facility: [facility] Address: [address] [place] [address] Performed By: #### 2 4321-2 ####[facility] HOSPITALWNCLIA [id number] [place] [address] [place] Sodium [Moles/Vol] 138 mmol/L Normal 136-144 [facility] Comment on above: Order Comment: Speci men Type: BLOOD SPECIMENOrdering Facility: [facility] Address: [address] [place] [address] Performed By: #### 2 4321-2 ####[facility] MILLTOWNCLIA [id number] [place] [address] [place] Urea nitrogen [Mass/Vol] 21 mg/dL Normal 9-24 [facility] Comment on above: Order Comment: Speci men Type: BLOOD SPECIMENOrdering Facility: [facility] Address: [address] [place] [address] Performed By: #### 2 4321-2 ####[facility] MILLWNCLIA [id number] [place] [address] [place] CBC W Auto Differential pane l (Bld)on 06-16-2024 Basophils (Bld) [#/Vol] 10*3/uL Normal <0.11 [facility] Comment on above: Order Comment: Speci men Type: BLOOD SPECIMENOrdering Facility: [facility] Address: [address] [place] [address] Performed By: #### 5 7021-8 ####[facility] HOSPITALNCLIA [id number] [place] [address] [place] Basophils/100 WBC (Bld) 0.3 % Normal [facility] Comment on above: Order Comment: Speci men Type: BLOOD SPECIMENOrdering Facility: [facility] Address: [address] [place] [address] Performed By: #### 5 7021-8 ####[facility] HOSPITALANGELICALIA [id number] [place] [address] [place] Differential cell count method Nom (Bld) Auto Normal [facility] Comment on above: Order Comment: Speci men Type: BLOOD SPECIMENOrdering Facility: [facility] Address: [address] [place] [address] Performed By: #### 5 7021-8 ####[facility] HOSPITALNCLIA [id number] [place] [address] [place] Eosinophils (Bld) [#/Vol] 0.31 10*3/uL Normal <0.46 [facility] Comment on above: Order Comment: Speci men Type: BLOOD SPECIMENOrdering Facility: [facility] Address: [address] [place] [address] Performed By: #### 5 7021-8 ####[facility] [id number] [place] [address] [place] Eosinophils/100 WBC (Bld) 5.0 % Normal [facility] Comment on above: Order Comment: Speci men Type: BLOOD SPECIMENOrdering Facility: [facility] Address: [address] [place] [address] Performed By: #### 5 7021-8 ####[facility] [id number] [place] [address] [place] Erythrocyte distribution width (RBC) [Ratio] 20.5 % High 11.5-15.0 [facility] Comment on above: Order Comment: Speci men Type: BLOOD SPECIMENOrdering Facility: [facility] Address: [address] [place] [address] Performed By: #### 5 7021-8 ####[facility] [id number] [place] [address] [place] Hematocrit (Bld) [Volume fraction] 30.5 % Low 39.0-51.0 [facility] Comment on above: Order Comment: Speci men Type: BLOOD SPECIMENOrdering Facility: [facility] Address: [address] [place] [address] Performed By: #### 5 7021-8 ####[facility] [id number] [place] [address] [place] Hemoglobin (Bld) [Mass/Vol] 9.2 g/dL Low 13.0-17.0 [facility] Comment on above: Order Comment: Speci men Type: BLOOD SPECIMENOrdering Facility: [facility] Address: [address] [place] [address] Performed By: #### 5 7021-8 ####[facility] MILLTOWNCLIA [id number] [place] [address] [place] Immature granulocytes (Bld) [#/Vol] 10*3/uL Normal <0.10 [facility] Comment on above: Order Comment: Speci men Type: BLOOD SPECIMENOrdering Facility: [facility] Address: [address] [place] [address] Performed By: #### 5 7021-8 ####[facility] HOSPITALWNCLIA [id number] [place] [address] [place] Immature granulocytes/100 WBC (Bld) 0.3 % Normal [facility] Comment on above: Order Comment: Speci men Type: BLOOD SPECIMENOrdering Facility: [facility] Address: [address] [place] [address] Performed By: #### 5 7021-8 ####[facility] HOSPITALWNCLIA [id number] [place] [address] [place] Lymphocytes (Bld) [#/Vol] 2.02 10*3/uL Normal 1.00-4.00 [facility] Comment on above: Order Comment: Speci men Type: BLOOD SPECIMENOrdering Facility: [facility] Address: [address] [place] [address] Performed By: #### 5 7021-8 ####[facility] MILLTOWNCLIA [id number] [place] [address] [place] Lymphocytes/100 WBC (Bld) 32.3 % Normal [facility] Comment on above: Order Comment: Speci men Type: BLOOD SPECIMENOrdering Facility: [facility] Address: [address] [place] [address] Performed By: #### 5 7021-8 ####[facility] MILLTOWNCLIA [id number] [place] [address] [place] MCH (RBC) [Entitic mass] 24.5 pg Low 26.0-34.0 [facility] Comment on above: Order Comment: Speci men Type: BLOOD SPECIMENOrdering Facility: [facility] Address: [address] [place] [address] Performed By: #### 5 7021-8 ####[facility] [id number] [place] [address] [place] MCHC (RBC) [Mass/Vol] 30.2 g/dL Low 30.5-36.0 [facility] Comment on above: Order Comment: Speci men Type: BLOOD SPECIMENOrdering Facility: [facility] Address: [address] [place] [address] Performed By: #### 5 7021-8 ####[facility] [id number] [place] [address] [place] MCV (RBC) [Entitic vol] 81.1 fL Normal 80.0-100.0 [facility] Comment on above: Order Comment: Speci men Type: BLOOD SPECIMENOrdering Facility: [facility] Address: [address] [place] [address] Performed By: #### 5 7021-8 ####[facility] [id number] [place] [address] [place] Monocytes (Bld) [#/Vol] 0.47 10*3/uL Normal <0.87 [facility] Comment on above: Order Comment: Speci men Type: BLOOD SPECIMENOrdering Facility: [facility] Address: [address] [place] [address] Performed By: #### 5 7021-8 ####[facility] [id number] [place] [address] [place] Monocytes/100 WBC (Bld) 7.5 % Normal [facility] Comment on above: Order Comment: Speci men Type: BLOOD SPECIMENOrdering Facility: [facility] Address: [address] [place] [address] Performed By: #### 5 7021-8 ####[facility] [id number] [place] [address] [place] Neutrophils (Bld) [#/Vol] 3.42 10*3/uL Normal 1.45-7.50 [facility] Comment on above: Order Comment: Speci men Type: BLOOD SPECIMENOrdering Facility: [facility] Address: [address] [place] [address] Performed By: #### 5 7021-8 ####[facility] [id number] [place] [address] [place] Neutrophils/100 WBC (Bld) 54.6 % Normal [facility] Comment on above: Order Comment: Speci men Type: BLOOD SPECIMENOrdering Facility: [facility] Address: [address] [place] [address] Performed By: #### 5 7021-8 ####[facility] [id number] [place] [address] [place] Nucleated RBC (Bld) [#/Vol] 10*3/uL Normal <0.01 [facility] Comment on above: Order Comment: Speci men Type: BLOOD SPECIMENOrdering Facility: [facility] Address: [address] [place] [address] Performed By: #### 5 7021-8 ####[facility] [id number] [place] [address] [place] Nucleated RBC/100 WBC (Bld) [Ratio] 0.0 /100 WBC Normal [facility] Comment on above: Order Comment: Speci men Type: BLOOD SPECIMENOrdering Facility: [facility] Address: [address] [place] [address] Performed By: #### 5 7021-8 ####[facility] CORONANCMJ [id number] [place] [address] [place] Platelet mean volume (Bld) [Entitic vol] 8.4 fL Low 9.0-12.7 [facility] Comment on above: Order Comment: Speci men Type: BLOOD SPECIMENOrdering Facility: [facility] Address: [address] [place] [address] Performed By: #### 5 7021-8 ####[facility] HOSPITALNCMJ [id number] [place] [address] [place] Platelets (Bld) [#/Vol] 207 10*3/uL Normal 150-400 [facility] Comment on above: Order Comment: Speci men Type: BLOOD SPECIMENOrdering Facility: [facility] Address: [address] [place] [address] Performed By: #### 5 7021-8 ####[facility] HOSPITALNCKATERINA [id number] [place] [address] [place] RBC (Bld) [#/Vol] 3.76 10*6/uL Low 4.20-6.00 [facility] Comment on above: Order Comment: Speci men Type: BLOOD SPECIMENOrdering Facility: [facility] Address: [address] [place] [address] Performed By: #### 5 7021-8 ####[facility] HOS[facility]ITALNCLIA [id number] [place] [address] [place] WBC (Bld) [#/Vol] 6.26 10*3/uL Normal 3.70-11.00 [facility] Comment on above: Order Comment: Speci men Type: BLOOD SPECIMENOrdering Facility: [facility] Address: [address] [place] [address] Performed By: #### 5 7021-8 ####[facility] BIENVENIDOTOWNCLIA [id number] [place] [address] [place] PSA SerPl-mCncon 06-16-2024 Prostate specific Ag [Mass/Vol] ng/mL Normal <2.60 [facility] Comment on above: Order Comment: Speci men Type: BLOOD SPECIMENOrdering Facility: [facility] Address: [address] [place] [address] Result Comment: Tota l PSA test methodology used is the Electrochemiluminescence Immunoassay by [employer]. Total PSA values by differing methodologies cannot be interchanged. Performed By: #### 2 857-1 ####[facility] LABCLIA [id number] [place] [address] [place] Basic metabolic 2000 panelon 05-12-2024 Anion gap [Moles/Vol] 8 mmol/L Normal 8-15 [facility] Comment on above: Order Comment: Speci men Type: BLOOD SPECIMENOrdering Facility: [facility] Address: [address] [place] [address] Performed By: #### 2 4321-2 ####[facility] HOSPITALANGELICALIA [id number] [place] [address] [place] Calcium [Mass/Vol] 9.3 mg/dL Normal 8.5-10.2 [facility] Comment on above: Order Comment: Speci men Type: BLOOD SPECIMENOrdering Facility: [facility] Address: [address] [place] [address] Performed By: #### 2 4321-2 ####[facility] HOS[facility]ITALNCLIA [id number] [place] [address] [place] Chloride [Moles/Vol] 103 mmol/L Normal 98-107 [facility] Comment on above: Order Comment: Speci men Type: BLOOD SPECIMENOrdering Facility: [facility] Address: [address] [place] [address] Performed By: #### 2 4321-2 ####[facility] HOS[facility]ITALNCLIA [id number] [place] [address] [place] CO2 [Moles/Vol] 28 mmol/L Normal 22-30 [facility] Comment on above: Order Comment: Speci men Type: BLOOD SPECIMENOrdering Facility: [facility] Address: [address] [place] [address] Performed By: #### 2 4321-2 ####[facility]ATIONLI [id number] [place] [address] [place] Creatinine [Mass/Vol] 0.97 mg/dL Normal 0.73-1.22 [facility] Comment on above: Order Comment: Speci men Type: BLOOD SPECIMENOrdering Facility: [facility] Address: [address] [place] [address] Performed By: #### 2 4321-2 ####[facility] ERA [id number] [place] [address] [place] Creatinine and Glomerular filtration rate.predicted panel (S/P/Bld) 83 mL/min/1.73m??? Normal >=60 [facility] Comment on above: Order Comment: Speci men Type: BLOOD SPECIMENOrdering Facility: [facility] Address: [address] [place] [address] Result Comment: Beth mated Glomerular Filtration Rate [...] actual GFR. Performed By: #### 2 4321-2 ####[facility] HOSPITALWNCLIA [id number] [place] [address] [place] Glucose [Mass/Vol] 133 mg/dL High 74-99 [facility] Comment on above: Order Comment: Bassam hong Type: BLOOD SPECIMENOrdering Facility: [facility] Address: [address] [place] [address] Result Comment: The [place] Diabetes Association (ADA) provides guidance for cutoff [...] Standards of Medical Care in Diabetes 2016, [place] [employer]. Diabetes Care. 2016.39(Suppl 1). Performed By: #### 2 4321-2 ####[facility] HOSPITALWMTLIA [id number] [place] [address] [place] Potassium [Moles/Vol] 4.1 mmol/L Normal 3.7-5.1 [facility] Comment on above: Order Comment: Bassam hong Type: BLOOD SPECIMENOrdering Facility: [facility] Address: [address] [place] [address] Performed By: #### 2 4321-2 ####[facility] HOSPITALWNCLIA [id number] [place] [address] [place] Sodium [Moles/Vol] 139 mmol/L Normal 136-144 [facility] Comment on above: Order Comment: Bassam hong Type: BLOOD SPECIMENOrdering Facility: [facility] Address: [address] [place] [address] Performed By: #### 2 4321-2 ####[facility] HOS[facility]ITALNCLIA [id number] [place] [address] [place] Urea nitrogen [Mass/Vol] 18 mg/dL Normal 9-24 [facility] Comment on above: Order Comment: Speci men Type: BLOOD SPECIMENOrdering Facility: [facility] Address: [address] [place] [address] Performed By: #### 2 4321-2 ####[facility] HOSPITALMariannaNCKATERINA [id number] [place] [address] [place] CBC W Auto Differential pane l (Bld)on 05-12-2024 Basophils (Bld) [#/Vol] 10*3/uL Normal <0.11 [facility] Comment on above: Order Comment: Speci men Type: BLOOD SPECIMENOrdering Facility: [facility] Address: [address] [place] [address] Performed By: #### 5 7021-8 ####[facility] [id number] [place] [address] [place] Basophils/100 WBC (Bld) 0.2 % Normal [facility] Comment on above: Order Comment: Speci men Type: BLOOD SPECIMENOrdering Facility: [facility] Address: [address] [place] [address] Performed By: #### 5 7021-8 ####[facility] ERA [id number] [place] [address] [place] Differential cell count method Nom (Bld) Auto Normal [facility] Comment on above: Order Comment: Speci men Type: BLOOD SPECIMENOrdering Facility: [facility] Address: [address] [place] [address] Performed By: #### 5 7021-8 ####[facility] ERA [id number] [place] [address] [place] Eosinophils (Bld) [#/Vol] 0.25 10*3/uL Normal <0.46 [facility] Comment on above: Order Comment: Speci men Type: BLOOD SPECIMENOrdering Facility: [facility] Address: [address] [place] [address] Performed By: #### 5 7021-8 ####[facility] MILLWANGELICALIA [id number] [place] [address] [place] Eosinophils/100 WBC (Bld) 4.5 % Normal [facility] Comment on above: Order Comment: Speci men Type: BLOOD SPECIMENOrdering Facility: [facility] Address: [address] [place] [address] Performed By: #### 5 7021-8 ####[facility] HOSPITALANGELICALIA [id number] [place] [address] [place] Erythrocyte distribution width (RBC) [Ratio] 20.5 % High 11.5-15.0 [facility] Comment on above: Order Comment: Speci men Type: BLOOD SPECIMENOrdering Facility: [facility] Address: [address] [place] [address] Performed By: #### 5 7021-8 ####[facility] HOSPITALHEAVENA [id number] [place] [address] [place] Hematocrit (Bld) [Volume fraction] 32.0 % Low 39.0-51.0 [facility] Comment on above: Order Comment: Speci men Type: BLOOD SPECIMENOrdering Facility: [facility] Address: [address] [place] [address] Performed By: #### 5 7021-8 ####[facility] HOSPITALANGELICALIA [id number] [place] [address] [place] Hemoglobin (Bld) [Mass/Vol] 9.7 g/dL Low 13.0-17.0 [facility] Comment on above: Order Comment: Speci men Type: BLOOD SPECIMENOrdering Facility: [facility] Address: [address] [place] [address] Performed By: #### 5 7021-8 ####[facility] HOSPITALNCLIA [id number] [place] [address] [place] Immature granulocytes (Bld) [#/Vol] 10*3/uL Normal <0.10 [facility] Comment on above: Order Comment: Speci men Type: BLOOD SPECIMENOrdering Facility: [facility] Address: [address] [place] [address] Performed By: #### 5 7021-8 ####[facility] HOSPITALNCCENTRAL VALLEY [facility] [id number] [place] [address] [place] Immature granulocytes/100 WBC (Bld) 0.4 % Normal [facility] Comment on above: Order Comment: Speci men Type: BLOOD SPECIMENOrdering Facility: [facility] Address: [address] [place] [address] Performed By: #### 5 7021-8 ####[facility] HOSPITALNCLI [id number] [place] [address] [place] Lymphocytes (Bld) [#/Vol] 2.47 10*3/uL Normal 1.00-4.00 [facility] Comment on above: Order Comment: Speci men Type: BLOOD SPECIMENOrdering Facility: [facility] Address: [address] [place] [address] Performed By: #### 5 7021-8 ####[facility] [id number] [place] [address] [place] Lymphocytes/100 WBC (Bld) 44.2 % Normal [facility] Comment on above: Order Comment: Speci men Type: BLOOD SPECIMENOrdering Facility: [facility] Address: [address] [place] [address] Performed By: #### 5 7021-8 ####[facility] HOSPITALNCLIA [id number] [place] [address] [place] MCH (RBC) [Entitic mass] 24.5 pg Low 26.0-34.0 [facility] Comment on above: Order Comment: Speci men Type: BLOOD SPECIMENOrdering Facility: [facility] Address: [address] [place] [address] Performed By: #### 5 7021-8 ####[facility] [id number] [place] [address] [place] MCHC (RBC) [Mass/Vol] 30.3 g/dL Low 30.5-36.0 [facility] Comment on above: Order Comment: Speci men Type: BLOOD SPECIMENOrdering Facility: [facility] Address: [address] [place] [address] Performed By: #### 5 7021-8 ####[facility] HOSPITALCINDY [id number] [place] [address] [place] MCV (RBC) [Entitic vol] 80.8 fL Normal 80.0-100.0 [facility] Comment on above: Order Comment: Speci men Type: BLOOD SPECIMENOrdering Facility: [facility] Address: [address] [place] [address] Performed By: #### 5 7021-8 ####[facility] HOSPITALCINDY [id number] [place] [address] [place] Monocytes (Bld) [#/Vol] 0.37 10*3/uL Normal <0.87 [facility] Comment on above: Order Comment: Speci men Type: BLOOD SPECIMENOrdering Facility: [facility] Address: [address] [place] [address] Performed By: #### 5 7021-8 ####[facility] HOSPITALHEAVENA [id number] [place] [address] [place] Monocytes/100 WBC (Bld) 6.6 % Normal [facility] Comment on above: Order Comment: Speci men Type: BLOOD SPECIMENOrdering Facility: [facility] Address: [address] [place] [address] Performed By: #### 5 7021-8 ####[facility] MILLTOWNCLIA [id number] [place] [address] [place] Neutrophils (Bld) [#/Vol] 2.47 10*3/uL Normal 1.45-7.50 [facility] Comment on above: Order Comment: Speci men Type: BLOOD SPECIMENOrdering Facility: [facility] Address: [address] [place] [address] Performed By: #### 5 7021-8 ####[facility] FOUNDATIONLIA [id number] [place] [address] [place] Neutrophils/100 WBC (Bld) 44.1 % Normal [facility] Comment on above: Order Comment: Speci men Type: BLOOD SPECIMENOrdering Facility: [facility] Address: [address] [place] [address] Performed By: #### 5 7021-8 ####[facility] FOUNDATIONLIA [id number] [place] [address] [place] Nucleated RBC (Bld) [#/Vol] 10*3/uL Normal <0.01 [facility] Comment on above: Order Comment: Speci men Type: BLOOD SPECIMENOrdering Facility: [facility] Address: [address] [place] [address] Performed By: #### 5 7021-8 ####[facility] FOUNDATIONLIA [id number] [place] [address] [place] Nucleated RBC/100 WBC (Bld) [Ratio] 0.0 /100 WBC Normal [facility] Comment on above: Order Comment: Speci men Type: BLOOD SPECIMENOrdering Facility: [facility] Address: [address] [place] [address] Performed By: #### 5 7021-8 ####[facility]ITAL[facility]CL[facility] [id number] [place] [address] [place] Platelet mean volume (Bld) [Entitic vol] 8.4 fL Low 9.0-12.7 [facility] Comment on above: Order Comment: Speci men Type: BLOOD SPECIMENOrdering Facility: [facility] Address: [address] [place] [address] Performed By: #### 5 7021-8 ####[facility]ITALNCLIA [id number] [place] [address] [place] Platelets (Bld) [#/Vol] 192 10*3/uL Normal 150-400 [facility] Comment on above: Order Comment: Speci men Type: BLOOD SPECIMENOrdering Facility: [facility] Address: [address] [place] [address] Performed By: #### 5 7021-8 ####[facility] [id number] [place] [address] [place] RBC (Bld) [#/Vol] 3.96 10*6/uL Low 4.20-6.00 [facility] Comment on above: Order Comment: Speci men Type: BLOOD SPECIMENOrdering Facility: [facility] Address: [address] [place] [address] Performed By: #### 5 7021-8 ####[facility]ITALNCLIA [id number] [place] [address] [place] WBC (Bld) [#/Vol] 5.59 10*3/uL Normal 3.70-11.00 [facility] Comment on above: Order Comment: Speci men Type: BLOOD SPECIMENOrdering Facility: [facility] Address: [address] [place] [address] Performed By: #### 5 7021-8 ####[facility]ITALNCLIA [id number] [place] [address] [place] PSA [facility] Prostate specific Ag [Mass/Vol] ng/mL Normal <2.60 [facility] Comment on above: Order Comment: Speci men Type: BLOOD SPECIMENOrdering Facility: [facility] Address: [address] [place] [address] Result Comment: Erika l PSA test methodology used is the Electrochemiluminescence Immunoassay by [employer]. Total PSA values by differing methodologies cannot be interchanged. Performed By: #### 2 857-1 ####[facility] LABIA [id number] [place] [address] [place] CNPNon 2024 CNPN Normal [facility] CNOVon 05-04-2024 CNOV Normal [facility] SURGICAL PATHOLOGYon 025 CASE REPORT Normal [facility] Comment on above: Order Comment: Speci men Type: TISSUE SPECIMENOrdering Facility: [facility] Address: [address] [place] [address] Result Comment: Surg ical Pathology Report Case: [id number] Provider: Richie Dejesus MD Collected: 05/04/2024 12:50 PMOrdering Location: Dermatology Received: 05/04/2024 02:24 PMPathologist: Gabi Gonzalez MDSpecimen: Skin, Shave Biopsy, right crown scalp Performed By: #### S ####[facility] LABIA [id number] [place] [address] [place] CLINICAL HISTORY R/O nmsc Normal [facility] Comment on above: Order Comment: Speci men Type: TISSUE SPECIMENOrdering Facility: [facility] Address: [address] [place] [address] Performed By: #### S ####[facility] LABIA [id number] [place] [address] [place] DIAGNOSIS COMMENT Normal [facility] Comment on above: Order Comment: Speci men Type: TISSUE SPECIMENOrdering Facility: [facility] Address: [address] [place] [address] Result Comment: 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 The epidermis is broadly transected by the deep biopsy margin. An invasive squamous cell carcinoma cannot entirely be excluded. Clinical correlation is recommended. Performed By: #### S ####[facility] LABCLIA [id number] [address] [place] FINAL DIAGNOSIS Normal [facility] Comment on above: Order Comment: Speci men Type: TISSUE SPECIMENOrdering Facility: [facility] Address: [address] [place] [address] Result Comment: Jocelyn garcia, right crown scalp, shave biopsy:- Squamous cell carcinoma, see comment.CELINA/JOSE LUIS/oracio 05/05/2024 Performed By: #### S ####[facility] LABCLIA [id number] [address] STATES OF [facility] FINAL PERFORMING LAB Normal [facility] Comment on above: Order Comment: Speci men Type: TISSUE SPECIMENOrdering Facility: [facility] Address: [address] [place] [address] Result Comment: Diag nostic interpretation performed at: [facility], [address] [place] [address], [place] [address] CLIA# [id number] Director: Misha Prater MD Performed By: #### S ####[facility] LABCLIA [id number] [address] STATES OF [facility] GROSS DESCRIPTION Normal [facility] Comment on above: Order Comment: Speci men Type: TISSUE SPECIMENOrdering Facility: [facility] Address: [address] [place] [address] Result Comment: Jocelyn garcia, Shave BiopsyReceived in formalin is a 1.5 x 1.0 x 0.3 cm shave of skin. On the skin surface there is a 1.5 cm yellow-white slightly elevated and firm area. The specimen is trisected. Totally submitted in two cassettes.[facility] May 04, 2024 9:01 PMGross examination performed at [facility], [address] [place] [address] Performed By: #### S ####[facility] LABCLIA [id number] [address] [place]Q[place]FF[place], [place] [address] [place] Basic metabolic 2000 panelon 04-14-2024 Anion gap [Moles/Vol] 7 mmol/L Low 8-15 [facility] Comment on above: Order Comment: Speci men Type: BLOOD SPECIMENOrdering Facility: [facility] Address: [address] [place] [address] Performed By: #### 2 4321-2 ####[facility]ITALCINDY [id number] [place] [address] [place] Calcium [Mass/Vol] 9.7 mg/dL Normal 8.5-10.2 [facility] Comment on above: Order Comment: Speci men Type: BLOOD SPECIMENOrdering Facility: [facility] Address: [address] [place] [address] Performed By: #### 2 4321-2 ####[facility] HOSPITALHEAVENA [id number] [place] [address] [place] Chloride [Moles/Vol] 104 mmol/L Normal 98-107 [facility] Comment on above: Order Comment: Speci men Type: BLOOD SPECIMENOrdering Facility: [facility] Address: [address] [place] [address] Performed By: #### 2 4321-2 ####[facility]ITALNCLIA [id number] [place] [address] [place] CO2 [Moles/Vol] 28 mmol/L Normal 22-30 [facility] Comment on above: Order Comment: Speci men Type: BLOOD SPECIMENOrdering Facility: [facility] Address: [address] [place] [address] Performed By: #### 2 4321-2 ####[facility]ITALNCLIA [id number] [place] [address] [place] Creatinine [Mass/Vol] 0.97 mg/dL Normal 0.73-1.22 [facility] Comment on above: Order Comment: Speci men Type: BLOOD SPECIMENOrdering Facility: [facility] Address: [address] [place] [address] Performed By: #### 2 4321-2 ####[facility] [id number] [place] [address] [place] Creatinine and Glomerular filtration rate.predicted panel (S/P/Bld) 84 mL/min/1.73m??? Normal >=60 [facility] Comment on above: Order Comment: [facility] Type: BLOOD SPECIMENOrdering Facility: [facility] Address: [address] [place] [address] Result Comment: Beth mated Glomerular Filtration Rate [...] Performed By: #### 2 4321-2 ####[facility]ITALNCCENTR[facility] [id number] [place] [address] [place] Glucose [Mass/Vol] 135 mg/dL High 74-99 [facility] Comment on above: Order Comment: Speci men Type: BLOOD SPECIMENOrdering Facility: [facility] Address: [address] [place] [address] Result Comment: The [place] Diabetes Association (ADA) provides guidance for cutoff [...] Standards of Medical Care in Diabetes 2016, [place] Diabetes Association. Diabetes Care. 2016.39(Suppl 1). Performed By: #### 2 4321-2 ####[facility] [id number] [place] [address] [place] Potassium [Moles/Vol] 3.9 mmol/L Normal 3.7-5.1 [facility] Comment on above: Order Comment: Speci men Type: BLOOD SPECIMENOrdering Facility: [facility] Address: [address] [place] [address] Performed By: #### 2 4321-2 ####[facility] [id number] [place] [address] [place] Sodium [Moles/Vol] 139 mmol/L Normal 136-144 [facility] Comment on above: Order Comment: Jose Manueli men Type: BLOOD SPECIMENOrdering Facility: [facility] Address: [address] [place] [address] Performed By: #### 2 4321-2 ####[facility] [id number] [place] [address] [place] Urea nitrogen [Mass/Vol] 25 mg/dL High 9-24 [facility] Comment on above: Order Comment: Speci men Type: BLOOD SPECIMENOrdering Facility: [facility] Address: [address] [place] [address] Performed By: #### 2 4321-2 ####[facility] [id number] [place] [address] [place] CBC W Auto Differential pane l (Bld)on 04-14-2024 Basophils (Bld) [#/Vol] 10*3/uL Normal <0.11 [facility] Comment on above: Order Comment: Speci men Type: BLOOD SPECIMENOrdering Facility: [facility] Address: [address] [place] [address] Performed By: #### 5 7021-8 ####[facility]ATIONLIA [id number] [place] [address] [place] Basophils/100 WBC (Bld) 0.2 % Normal [facility] Comment on above: Order Comment: Speci men Type: BLOOD SPECIMENOrdering Facility: [facility] Address: [address] [place] [address] Performed By: #### 5 7021-8 ####[facility] ERA [id number] [place] [address] [place] Differential cell count method Nom (Bld) Auto Normal [facility] Comment on above: Order Comment: Speci men Type: BLOOD SPECIMENOrdering Facility: [facility] Address: [address] [place] [address] Performed By: #### 5 7021-8 ####[facility] ERA [id number] [place] [address] [place] Eosinophils (Bld) [#/Vol] 0.18 10*3/uL Normal <0.46 [facility] Comment on above: Order Comment: Speci men Type: BLOOD SPECIMENOrdering Facility: [facility] Address: [address] [place] [address] Performed By: #### 5 7021-8 ####[facility]ATIONLIA [id number] [place] [address] [place] Eosinophils/100 WBC (Bld) 3.6 % Normal [facility] Comment on above: Order Comment: Speci men Type: BLOOD SPECIMENOrdering Facility: [facility] Address: [address] [place] [address] Performed By: #### 5 7021-8 ####[facility]ITALNCLIA [id number] [place] [address] [place] Erythrocyte distribution width (RBC) [Ratio] 20.9 % High 11.5-15.0 [facility] Comment on above: Order Comment: Speci men Type: BLOOD SPECIMENOrdering Facility: [facility] Address: [address] [place] [address] Performed By: #### 5 7021-8 ####[facility] [id number] [place] [address] [place] Hematocrit (Bld) [Volume fraction] 32.0 % Low 39.0-51.0 [facility] Comment on above: Order Comment: Speci men Type: BLOOD SPECIMENOrdering Facility: [facility] Address: [address] [place] [address] Performed By: #### 5 7021-8 ####[facility] [id number] [place] [address] [place] Hemoglobin (Bld) [Mass/Vol] 9.5 g/dL Low 13.0-17.0 [facility] Comment on above: Order Comment: Speci men Type: BLOOD SPECIMENOrdering Facility: [facility] Address: [address] [place] [address] Performed By: #### 5 7021-8 ####[facility] [id number] [place] [address] [place] Immature granulocytes (Bld) [#/Vol] 10*3/uL Normal <0.10 [facility] Comment on above: Order Comment: Speci men Type: BLOOD SPECIMENOrdering Facility: [facility] Address: [address] [place] [address] Performed By: #### 5 7021-8 ####[facility] [id number] [place] [address] [place] Immature granulocytes/100 WBC (Bld) 0.4 % Normal [facility] Comment on above: Order Comment: Speci men Type: BLOOD SPECIMENOrdering Facility: [facility] Address: [address] [place] [address] Performed By: #### 5 7021-8 ####[facility]ITALNCCENTR[facility] [id number] [place] [address] [place] Lymphocytes (Bld) [#/Vol] 1.69 10*3/uL Normal 1.00-4.00 [facility] Comment on above: Order Comment: Speci men Type: BLOOD SPECIMENOrdering Facility: [facility] Address: [address] [place] [address] Performed By: #### 5 7021-8 ####[facility] [id number] [place] [address] [place] Lymphocytes/100 WBC (Bld) 33.8 % Normal [facility] Comment on above: Order Comment: Speci men Type: BLOOD SPECIMENOrdering Facility: [facility] Address: [address] [place] [address] Performed By: #### 5 7021-8 ####[facility] HOSPITALNCLI [id number] [place] [address] [place] MCH (RBC) [Entitic mass] 24.4 pg Low 26.0-34.0 [facility] Comment on above: Order Comment: Speci men Type: BLOOD SPECIMENOrdering Facility: [facility] Address: [address] [place] [address] Performed By: #### 5 7021-8 ####[facility]ITALNCCENTR[facility] [id number] [place] [address] [place] MCHC (RBC) [Mass/Vol] 29.7 g/dL Low 30.5-36.0 [facility] Comment on above: Order Comment: Speci men Type: BLOOD SPECIMENOrdering Facility: [facility] Address: [address] [place] [address] Performed By: #### 5 7021-8 ####[facility] BIENVENIDOMariannaNCMJ [id number] [place] [address] [place] MCV (RBC) [Entitic vol] 82.3 fL Normal 80.0-100.0 [facility] Comment on above: Order Comment: Speci men Type: BLOOD SPECIMENOrdering Facility: [facility] Address: [address] [place] [address] Performed By: #### 5 7021-8 ####[facility] HOSPITALNCShireen [id number] [place] [address] [place] Monocytes (Bld) [#/Vol] 0.28 10*3/uL Normal <0.87 [facility] Comment on above: Order Comment: Speci men Type: BLOOD SPECIMENOrdering Facility: [facility] Address: [address] [place] [address] Performed By: #### 5 7021-8 ####[facility] ERA [id number] [place] [address] [place] Monocytes/100 WBC (Bld) 5.6 % Normal [facility] Comment on above: Order Comment: Speci men Type: BLOOD SPECIMENOrdering Facility: [facility] Address: [address] [place] [address] Performed By: #### 5 7021-8 ####[facility] ERA [id number] [place] [address] [place] Neutrophils (Bld) [#/Vol] 2.82 10*3/uL Normal 1.45-7.50 [facility] Comment on above: Order Comment: Speci men Type: BLOOD SPECIMENOrdering Facility: [facility] Address: [address] [place] [address] Performed By: #### 5 7021-8 ####[facility] HOSPITALWANGELICALIA [id number] [place] [address] [place] Neutrophils/100 WBC (Bld) 56.4 % Normal [facility] Comment on above: Order Comment: Speci men Type: BLOOD SPECIMENOrdering Facility: [facility] Address: [address] [place] [address] Performed By: #### 5 7021-8 ####[facility]ATIONLIA [id number] [place] [address] [place] Nucleated RBC (Bld) [#/Vol] 10*3/uL Normal <0.01 [facility] Comment on above: Order Comment: Speci men Type: BLOOD SPECIMENOrdering Facility: [facility] Address: [address] [place] [address] Performed By: #### 5 7021-8 ####[facility] [id number] [place] [address] [place] Nucleated RBC/100 WBC (Bld) [Ratio] 0.0 /100 WBC Normal [facility] Comment on above: Order Comment: Speci men Type: BLOOD SPECIMENOrdering Facility: [facility] Address: [address] [place] [address] Performed By: #### 5 7021-8 ####[facility] ERA [id number] [place] [address] [place] Platelet mean volume (Bld) [Entitic vol] 8.3 fL Low 9.0-12.7 [facility] Comment on above: Order Comment: Speci men Type: BLOOD SPECIMENOrdering Facility: [facility] Address: [address] [place] [address] Performed By: #### 5 7021-8 ####[facility] HOSPITALNCLI [id number] [place] [address] [place] Platelets (Bld) [#/Vol] 181 10*3/uL Normal 150-400 [facility] Comment on above: Order Comment: Speci men Type: BLOOD SPECIMENOrdering Facility: [facility] Address: [address] [place] [address] Performed By: #### 5 7021-8 ####[facility] HOSPITALNCKATERINA [id number] [place] [address] [place] RBC (Bld) [#/Vol] 3.89 10*6/uL Low 4.20-6.00 [facility] Comment on above: Order Comment: Speci men Type: BLOOD SPECIMENOrdering Facility: [facility] Address: [address] [place] [address] Performed By: #### 5 7021-8 ####[facility] ERShireen [id number] [place] [address] [place] WBC (Bld) [#/Vol] 5.00 10*3/uL Normal 3.70-11.00 [facility] Comment on above: Order Comment: Speci men Type: BLOOD SPECIMENOrdering Facility: [facility] Address: [address] [place] [address] Performed By: #### 5 7021-8 ####[facility] HOS[facility]ITALNCLIA [id number] [place] [address] [place] PSA SerPl-mCncon 04-14-2024 Prostate specific Ag [Mass/Vol] ng/mL Normal <2.60 [facility] Comment on above: Order Comment: Speci men Type: BLOOD SPECIMENOrdering Facility: [facility] Address: [address] [place] [address] Result Comment: Tota l PSA test methodology used is the Electrochemiluminescence Immunoassay by [employer]. Total PSA values by differing methodologies cannot be interchanged. Performed By: #### 2 857-1 ####[facility] LABCLIA [id number] [facility] [id number] [address] [place] CNPNon 04-05-2024 CNPN Normal [facility] CNTHERAPYon 04-01-2024 CNTHERAPY OT/PT/Speech Visit ([facility]) -- LUTHER CASTILLO ([id number]) 1955 M Date Time Provider Department 04/01/24 2:15 PM ENDY CURRAN [facility] Date Time Provider Department [place] 04/01/2024 2:15 PM [id number], CYNTHIA*[facility] M Reason for Visit: Physical Therapy [...] in the MR contrast administration guidelines link. [facility] [id number] 03-24-2024 [id number] HNO ID: [id number] Author: ENDY CURRAN PT Service: ? Author Type: Physical Therapist Type: [id number] Filed: 03/24/2024 17:11 Note Text: [facility] Physical Therapy Plan of Care Certification Patient Name: Luther Castillo : 1955 [facility] #: [id number] Date: 03/24/2024 To: Catherine Peraza APRN, RANGE SCIENTIST From Therapist: Endy Curran PT, DERRICK RE: [...] for exercise recently [place] [facility]) Patient Goals: To decrease lower back and L hip pain (Improving) Time Frame for Goals and Treatment : 05/07/24 Planned Interventions, Frequency, and Duration: 2x/week, 5 weeks Total Number of Visits Planned: 10 Patient to be seen for Therapeutic exercise (25218), Manual therapy (97170), Therapeutic activities (05531), Self-long-term management (48250), Patient/Family/Caregiver Education, Body Mechanics Training PLAN FOR NEXT VISIT: Continue to progress LE strengthening with increasing repetitions as pt tolerates. For further details regarding this patient refer to the Physical Therapy electronically documented visit dated 03/24/2024. Provider Attestation I have reviewed the treatment plan for YAHIR NegronF# [id number] for the period of 03/24/24 -- 05/07/24, established on 03/24/2024. Signature certifies the need for therapy services. [facility] CNTHERAPYon 03-24-2024 CNTHERAPY OT/PT/Speech Visit ([facility]) -- JONATHANLUTHER ([id number]) 1955 M Date Time Provider Department 03/24/24 2:15 PM ENDY CURRAN [facility] Date Time Provider Department Center 03/24/2024 2:15 PM [id number], CYNTHIA*[facility] M Reason for Visit: PT Progress Note [1596] Primary Visit Diagnosis:Left hip pain [M25.552] Other [...] the MR contrast administration guidelines link. Normal [facility] CNOVon 03-19-2024 CNOV Normal [facility] Basic metabolic 2000 panelon 03-17-2024 Anion gap [Moles/Vol] 9 mmol/L Normal 8-15 [facility] Comment on above: Order Comment: Speci men Type: BLOOD SPECIMENOrdering Facility: [facility] Address: [address] [place] [id number] Performed By: #### 2 4321-2 ####[facility] [id number] [place] [address] [place] Calcium [Mass/Vol] 9.2 mg/dL Normal 8.5-10.2 [facility] Comment on above: Order Comment: Speci men Type: BLOOD SPECIMENOrdering Facility: [facility] Address: [address] [place] [address] Performed By: #### 2 4321-2 ####[facility] [id number] [place] [address] [place] Chloride [Moles/Vol] 103 mmol/L Normal 98-107 [facility] Comment on above: Order Comment: Speci men Type: BLOOD SPECIMENOrdering Facility: [facility] Address: [address] [place] [address] Performed By: #### 2 4321-2 ####[facility] VIKTORWNCLIA [id number] [place] [address] [place] CO2 [Moles/Vol] 27 mmol/L Normal 22-30 [facility] Comment on above: Order Comment: Speci men Type: BLOOD SPECIMENOrdering Facility: [facility] Address: [address] [place] [address] Performed By: #### 2 4321-2 ####[facility] HOSPITALWNCLIA [id number] [place] [address] [place] Creatinine [Mass/Vol] 1.00 mg/dL Normal 0.73-1.22 [facility] Comment on above: Order Comment: Speci men Type: BLOOD SPECIMENOrdering Facility: [facility] Address: [address] [place] [address] Performed By: #### 2 4321-2 ####[facility] H[facility]ITALNCLIA [id number] [address] Creatinine and Glomerular filtration rate.predicted panel (S/P/Bld) 81 mL/min/1.73m??? Normal >=60 [facility] Comment on above: Order Comment: Speci men Type: BLOOD SPECIMENOrdering Facility: [facility] Address: [address] [place] [address] Result Comment: Beth mated Glomerular Filtration Rate [...] actual GFR. Performed By: #### 2 4321-2 ####[facility] HOSPITALWNCLIA [id number] [place] [address] [place] Glucose [Mass/Vol] 94 mg/dL Normal 74-99 [facility] Comment on above: Order Comment: Speci men Type: BLOOD SPECIMENOrdering Facility: [facility] Address: [address] [place] [address] Result Comment: The [place] Diabetes [employer] (ADA) provides guidance for cutoff [...] Standards of Medical Care in Diabetes 2016, [place] [employer]. Diabetes Care. 2016.39(Suppl 1). Performed By: #### 2 4321-2 ####[facility] HOS[facility]ITALWNCLIA [id number] [place] [address] [place] Potassium [Moles/Vol] 4.0 mmol/L Normal 3.7-5.1 [facility] Comment on above: Order Comment: Speci men Type: BLOOD SPECIMENOrdering Facility: [facility] Address: [address] [place] [address] Performed By: #### 2 4321-2 ####[facility] MILLTOWNCLIA [id number] [place] [address] [place] Sodium [Moles/Vol] 139 mmol/L Normal 136-144 [facility] Comment on above: Order Comment: Speci men Type: BLOOD SPECIMENOrdering Facility: [facility] Address: [address] [place], [place] [address] Performed By: #### 2 4321-2 ####[facility] MILLWNCLIA [id number] [place] [address] [place] Urea nitrogen [Mass/Vol] 19 mg/dL Normal 9-24 [facility] Comment on above: Order Comment: Speci men Type: BLOOD SPECIMENOrdering Facility: [facility] Address: [address] [place] [address] Performed By: #### 2 4321-2 ####[facility] HOSPITALANGELICAA [id number] [place] [address] [place] CBC W Auto Differential pane l (Bld)on 03-17-2024 Basophils (Bld) [#/Vol] 10*3/uL Normal <0.11 [facility] Comment on above: Order Comment: Speci men Type: BLOOD SPECIMENOrdering Facility: [facility] Address: [address] [place] [address] Performed By: #### 5 7021-8 ####[facility] ERA [id number] [place] [address] [place] Basophils/100 WBC (Bld) 0.2 % Normal [facility] Comment on above: Order Comment: Speci men Type: BLOOD SPECIMENOrdering Facility: [facility] Address: [address] [place] [address] Performed By: #### 5 7021-8 ####[facility] HOSPITALANGELICALIA [id number] [place] [address] [place] Differential cell count method Nom (Bld) Auto Normal [facility] Comment on above: Order Comment: Speci men Type: BLOOD SPECIMENOrdering Facility: [facility] Address: [address] [place] [address] Performed By: #### 5 7021-8 ####[facility] HOSPITALNCLIA [id number] [place] [address] [place] Eosinophils (Bld) [#/Vol] 0.25 10*3/uL Normal <0.46 [facility] Comment on above: Order Comment: Speci men Type: BLOOD SPECIMENOrdering Facility: [facility] Address: [address] [place] [address] Performed By: #### 5 7021-8 ####[facility] [id number] [place] [address] [place] Eosinophils/100 WBC (Bld) 4.3 % Normal [facility] Comment on above: Order Comment: Speci men Type: BLOOD SPECIMENOrdering Facility: [facility] Address: [address] [place] [address] Performed By: #### 5 7021-8 ####[facility] HOSPITALNCMJ [id number] [place] [address] [place] Erythrocyte distribution width (RBC) [Ratio] 20.0 % High 11.5-15.0 [facility] Comment on above: Order Comment: Speci men Type: BLOOD SPECIMENOrdering Facility: [facility] Address: [address] [place] [address] Performed By: #### 5 7021-8 ####[facility] HOSPITALNCLIA [id number] [place] [address] [place] Hematocrit (Bld) [Volume fraction] 33.0 % Low 39.0-51.0 [facility] Comment on above: Order Comment: Speci men Type: BLOOD SPECIMENOrdering Facility: [facility] Address: [address] [place] [address] Performed By: #### 5 7021-8 ####[facility]ATIONLIA [id number] [place] [address] [place] Hemoglobin (Bld) [Mass/Vol] 9.9 g/dL Low 13.0-17.0 [facility] Comment on above: Order Comment: Speci men Type: BLOOD SPECIMENOrdering Facility: [facility] Address: [address] [place] [address] Performed By: #### 5 7021-8 ####[facility] MILLTOWNCLIA [id number] [place] [address] [place] Immature granulocytes (Bld) [#/Vol] 10*3/uL Normal <0.10 [facility] Comment on above: Order Comment: Speci men Type: BLOOD SPECIMENOrdering Facility: [facility] Address: [address] [place] [address] Performed By: #### 5 7021-8 ####[facility] HOSPITALNCLIA [id number] [place] [address] [place] Immature granulocytes/100 WBC (Bld) 0.2 % Normal [facility] Comment on above: Order Comment: Speci men Type: BLOOD SPECIMENOrdering Facility: [facility] Address: [address] [place] [address] Performed By: #### 5 7021-8 ####[facility]ATIONLIA [id number] [place] [address] [place] Lymphocytes (Bld) [#/Vol] 2.61 10*3/uL Normal 1.00-4.00 [facility] Comment on above: Order Comment: Speci men Type: BLOOD SPECIMENOrdering Facility: [facility] Address: [address] [place] [address] Performed By: #### 5 7021-8 ####[facility]OUNDATIONLIA [id number] [place] [address] [place] Lymphocytes/100 WBC (Bld) 45.1 % Normal [facility] Comment on above: Order Comment: Speci men Type: BLOOD SPECIMENOrdering Facility: [facility] Address: [address] [place] [address] Performed By: #### 5 7021-8 ####[facility]OUNDATIONLIA [id number] [place] [address] [place] MCH (RBC) [Entitic mass] 24.6 pg Low 26.0-34.0 [facility] Comment on above: Order Comment: Speci men Type: BLOOD SPECIMENOrdering Facility: [facility] Address: [address] [place] [address] Performed By: #### 5 7021-8 ####[facility] [id number] [place] [address] [place] MCHC (RBC) [Mass/Vol] 30.0 g/dL Low 30.5-36.0 [facility] Comment on above: Order Comment: Speci men Type: BLOOD SPECIMENOrdering Facility: [facility] Address: [address] [place] [address] Performed By: #### 5 7021-8 ####[facility] HOSPITALNCCENTRAL [facility] [id number] [place] [address] [place] MCV (RBC) [Entitic vol] 81.9 fL Normal 80.0-100.0 [facility] Comment on above: Order Comment: Speci men Type: BLOOD SPECIMENOrdering Facility: [facility] Address: [address] [place] [address] Performed By: #### 5 7021-8 ####[facility]PITALNCCENTRAL VALLEY [facility] [id number] [place] [address] [place] Monocytes (Bld) [#/Vol] 0.41 10*3/uL Normal <0.87 [facility] Comment on above: Order Comment: Speci men Type: BLOOD SPECIMENOrdering Facility: [facility] Address: [address] [place] [address] Performed By: #### 5 7021-8 ####[facility]PITALNCCENTRAL VAL[facility] [id number] [address] [place] Monocytes/100 WBC (Bld) 7.1 % Normal [facility] Comment on above: Order Comment: Speci men Type: BLOOD SPECIMENOrdering Facility: [facility] Address: [address] [place] [address] Performed By: #### 5 7021-8 ####[facility] BIENVENIDOHOUSTONANGELICALIA [id number] [place] [address] [place] Neutrophils (Bld) [#/Vol] 2.50 10*3/uL Normal 1.45-7.50 [facility] Comment on above: Order Comment: Speci men Type: BLOOD SPECIMENOrdering Facility: [facility] Address: [address] [place] [address] Performed By: #### 5 7021-8 ####[facility] ERA [id number] [place] [address] [place] Neutrophils/100 WBC (Bld) 43.1 % Normal [facility] Comment on above: Order Comment: Speci men Type: BLOOD SPECIMENOrdering Facility: [facility] Address: [address] [place] [address] Performed By: #### 5 7021-8 ####[facility] ERA [id number] [place] [address] [place] Nucleated RBC (Bld) [#/Vol] 10*3/uL Normal <0.01 [facility] Comment on above: Order Comment: Speci men Type: BLOOD SPECIMENOrdering Facility: [facility] Address: [address] [place] [address] Performed By: #### 5 7021-8 ####[facility]OUNDATIONLIA [id number] [place] [address] [place] Nucleated RBC/100 WBC (Bld) [Ratio] 0.0 /100 WBC Normal [facility] Comment on above: Order Comment: Speci men Type: BLOOD SPECIMENOrdering Facility: [facility] Address: [address] [place] [address] Performed By: #### 5 7021-8 ####[facility] HOSPITALWNCLIA [id number] [place] [address] [place] Platelet mean volume (Bld) [Entitic vol] 8.5 fL Low 9.0-12.7 [facility] Comment on above: Order Comment: Speci men Type: BLOOD SPECIMENOrdering Facility: [facility] Address: [address] [place] [address] Performed By: #### 5 7021-8 ####[facility]ATIONLIA [id number] [place] [address] [place] Platelets (Bld) [#/Vol] 200 10*3/uL Normal 150-400 [facility] Comment on above: Order Comment: Speci men Type: BLOOD SPECIMENOrdering Facility: [facility] Address: [address] [place] [address] Performed By: #### 5 7021-8 ####[facility] ERA [id number] [place] [address] [place] RBC (Bld) [#/Vol] 4.03 10*6/uL Low 4.20-6.00 [facility] Comment on above: Order Comment: Speci men Type: BLOOD SPECIMENOrdering Facility: [facility] Address: [address] [place] [address] Performed By: #### 5 7021-8 ####[facility]ATIONLIA [id number] [place] [address] [place] WBC (Bld) [#/Vol] 5.79 10*3/uL Normal 3.70-11.00 [facility] Comment on above: Order Comment: Speci men Type: BLOOD SPECIMENOrdering Facility: [facility] Address: [address] [place] [address] Performed By: #### 5 7021-8 ####[facility] FOUNDATIONLIA [id number] [place] [id number] [place] PSA SerPl-mCncon 03-17-2024 Prostate specific Ag [Mass/Vol] ng/mL Normal <2.60 [facility] Comment on above: Order Comment: Speci men Type: BLOOD SPECIMENOrdering Facility: [facility] Address: [address] [place] [address] Result Comment: Tota l PSA test methodology used is the Electrochemiluminescence Immunoassay by [employer]. Total PSA values by differing methodologies cannot be interchanged. Performed By: #### 2 857-1 ####[facility] LABCLIA [id number] [facility] [id number] [place] CNTHERAPYon 03-16-2024 CNTHERAPY OT/PT/Speech Visit ([facility]) -- LUTHER CASTILLO ([id number]) 1955 M Date Time Provider Department 03/16/24 2:00 PM JULIANO MAGAÑA [facility] Date Time Provider Department [place] 03/16/2024 2:00 PM [id number] [facility]AÑ[facility] Reason for Visit: Physical Therapy [...] in the MR contrast administration guidelines link. [facility] CNOVon 03-10-2024 [facility] CNTHERAPYon 03-09-2024 CNTHERAPY OT/PT/Speech Visit ([facility]) -- LUTHER CASTILLO ([id number]) 1955 M Date Time Provider Department 03/09/24 2:45 PM JOSE DAVID CEDENO [facility] Date Time Provider Department Center 03/09/2024 2:45 PM [id number], SHEILA*[facility] M Reason for Visit: Physical Therapy [...] in the MR contrast administration guidelines link. [facility] CNTHERAPYon 03-02-2024 CNTHERAPY OT/PT/Speech Visit ([facility]) -- LUTHER CASTILLO ([id number]) 1955 M Date Time Provider Department 03/02/24 2:45 PM JULIANO MAGAÑA [facility] Date Time Provider Department Center 03/02/2024 2:45 PM [id number][facility] Reason for Visit: Physical Therapy [503] Primary [...] in the MR contrast administration guidelines link. [facility] CNTHERAPYon 02-27-2024 CNTHERAPY OT/PT/Speech Visit ([facility]) -- LUTHER CASTILLO ([id number]) 1955 Date Time Provider Department 02/27/24 11:45 AM ROSEANNA HUGHES [facility] Date Time Provider Department Center 02/27/2024 11:45 AM [id number], AMBER M [facility] Reason for Visit: Physical Therapy [...] in the MR contrast administration guidelines link. [facility] CNPJerrica 02-25-2024 FRANCK [facility] CNTHERAPYon 02-25-2024 CNTHERAPY OT/PT/Speech Visit ([facility]) -- LUTHER CASTILLO ([id number]) 1955 M Date Time Provider Department 02/25/24 11:00 AM ENDY CURRAN [facility] Date Time Provider Department Center 02/25/2024 11:00 AM [id number], CYNTHIA*[facility] M Reason for Visit: PT Progress Note [8426] Primary Visit Diagnosis:Left hip pain [M25.552] Other [...] administration guidelines link. Letter Text Letter Text [facility] CNOVon 02-23-2024 CNOV Normal [facility] CNTHERAPYon 02-20-2024 CNTHERAPY OT/PT/Speech Visit ([facility]) -- LUTHER CASTILLO ([id number]) 1955 M Date Time Provider Department 02/20/24 11:45 AM JOSE DAVID CEDENO [facility] Date Time Provider Department Center 02/20/2024 11:45 AM [id number], SHEILA*[facility] M Reason for Visit: Physical Therapy [...] the MR contrast administration guidelines link. Normal [facility] Basic metabolic 2000 panelon 02-18-2024 Anion gap [Moles/Vol] 9 mmol/L Normal 8-15 [facility] Comment on above: Order Comment: Speci men Type: BLOOD SPECIMENOrdering Facility: [facility] Address: [address] [place] [address] Performed By: #### 2 4321-2 ####[facility] [id number] [place] [address] [place] Calcium [Mass/Vol] 9.2 mg/dL Normal 8.5-10.2 [facility] Comment on above: Order Comment: Speci men Type: BLOOD SPECIMENOrdering Facility: [facility] Address: [address] [place] [address] Performed By: #### 2 4321-2 ####[facility] [id number] [place] [address] [place] Chloride [Moles/Vol] 105 mmol/L Normal 98-107 [facility] Comment on above: Order Comment: Speci men Type: BLOOD SPECIMENOrdering Facility: [facility] Address: [address] [place] [address] Performed By: #### 2 4321-2 ####[facility]ITALNCCENTR[facility] [id number] [place] [address] [place] CO2 [Moles/Vol] 25 mmol/L Normal 22-30 [facility] Comment on above: Order Comment: Speci men Type: BLOOD SPECIMENOrdering Facility: [facility] Address: [address] [place] [address] Performed By: #### 2 4321-2 ####[facility]ITALNCCEN[facility] [id number] [place] [address] [place] Creatinine [Mass/Vol] 0.90 mg/dL Normal 0.73-1.22 [facility] Comment on above: Order Comment: Speci men Type: BLOOD SPECIMENOrdering Facility: [facility] Address: [address] [place] [address] Performed By: #### 2 4321-2 ####[facility] ERA [id number] [address] [place] Creatinine and Glomerular filtration rate.predicted panel (S/P/Bld) 92 mL/min/1.73m??? Normal >=60 [facility] Comment on above: Order Comment: Speci men Type: BLOOD SPECIMENOrdering Facility: [facility] Address: [address] [place] [address] Result Comment: Beth mated Glomerular Filtration Rate [...] actual GFR. Performed By: #### 2 4321-2 ####[facility] HOSPITALWNCLI [id number] [place] [address] [place] Glucose [Mass/Vol] 189 mg/dL High 74-99 [facility] Comment on above: Order Comment: Speci men Type: BLOOD SPECIMENOrdering Facility: [facility] Address: [address] [place], [place] [address] Result Comment: The [place] Diabetes Association (ADA) provides guidance for cutoff [...] Standards of Medical Care in Diabetes 2016, [place] [employer]. Diabetes Care. 2016.39(Suppl 1). Performed By: #### 2 4321-2 ####[facility] HOSPITALWNCLIA [id number] [place] [address] [place] Potassium [Moles/Vol] 3.7 mmol/L Normal 3.7-5.1 [facility] Comment on above: Order Comment: Speci men Type: BLOOD SPECIMENOrdering Facility: [facility] Address: [address] [place], [place] [address] Performed By: #### 2 4321-2 ####[facility] HOSPITALWNCLIA [id number] [place] [address] [place] Sodium [Moles/Vol] 139 mmol/L Normal 136-144 [facility] Comment on above: Order Comment: Speci men Type: BLOOD SPECIMENOrdering Facility: [facility] Address: [address] [place], [place] [address] Performed By: #### 2 4321-2 ####[facility] HOSPITALNCLIA [id number] [place] [address] [place] Urea nitrogen [Mass/Vol] 25 mg/dL High 9-24 [facility] Comment on above: Order Comment: Speci men Type: BLOOD SPECIMENOrdering Facility: [facility] Address: [address] [place] [address] Performed By: #### 2 4321-2 ####[facility]ITALWNCCENTRAL VALLEY [facility] [id number] [place] [address] [place] CBC W Auto Differential pane l (Bld)on 02-18-2024 Basophils (Bld) [#/Vol] 10*3/uL Normal <0.11 [facility] Comment on above: Order Comment: Speci men Type: BLOOD SPECIMENOrdering Facility: [facility] Address: [address] [place] [address] Performed By: #### 5 7021-8 ####[facility]ITALNCCENTR[facility] [id number] [place] [address] [place] Basophils/100 WBC (Bld) 0.2 % Normal [facility] Comment on above: Order Comment: Speci men Type: BLOOD SPECIMENOrdering Facility: [facility] Address: [address] [place] [address] Performed By: #### 5 7021-8 ####[facility] [id number] [place] [address] [place] Differential cell count method Nom (Bld) Auto Normal [facility] Comment on above: Order Comment: Speci men Type: BLOOD SPECIMENOrdering Facility: [facility] Address: [address] [place] [address] Performed By: #### 5 7021-8 ####[facility] HOSPITALNCA [id number] [place] [address] [place] Eosinophils (Bld) [#/Vol] 0.18 10*3/uL Normal <0.46 [facility] Comment on above: Order Comment: Speci men Type: BLOOD SPECIMENOrdering Facility: [facility] Address: [address] [place] [address] Performed By: #### 5 7021-8 ####[facility] [id number] [place] [address] [place] Eosinophils/100 WBC (Bld) 2.9 % Normal [facility] Comment on above: Order Comment: Speci men Type: BLOOD SPECIMENOrdering Facility: [facility] Address: [address] [place] [address] Performed By: #### 5 7021-8 ####[facility] HOSPITALNCMJ [id number] [place] [address] [place] Erythrocyte distribution width (RBC) [Ratio] 20.1 % High 11.5-15.0 [facility] Comment on above: Order Comment: Speci men Type: BLOOD SPECIMENOrdering Facility: [facility] Address: [address] [place] [address] Performed By: #### 5 7021-8 ####[facility] HOSPITALANGELICAKATERINA [id number] [place] [address] [place] Hematocrit (Bld) [Volume fraction] 29.1 % Low 39.0-51.0 [facility] Comment on above: Order Comment: Speci men Type: BLOOD SPECIMENOrdering Facility: [facility] Address: [address] [place] [address] Performed By: #### 5 7021-8 ####[facility] HOSPITALNCLIA [id number] [place] [address] [place] Hemoglobin (Bld) [Mass/Vol] 8.9 g/dL Low 13.0-17.0 [facility] Comment on above: Order Comment: Speci men Type: BLOOD SPECIMENOrdering Facility: [facility] Address: [address] [place] [address] Performed By: #### 5 7021-8 ####[facility] MILLWNCLIA [id number] [place] [address] [place] Immature granulocytes (Bld) [#/Vol] 0.03 10*3/uL Normal <0.10 [facility] Comment on above: Order Comment: Speci men Type: BLOOD SPECIMENOrdering Facility: [facility] Address: [address] [place] [address] Performed By: #### 5 7021-8 ####[facility]ATIONLIA [id number] [place] [address] [place] Immature granulocytes/100 WBC (Bld) 0.5 % Normal [facility] Comment on above: Order Comment: Speci men Type: BLOOD SPECIMENOrdering Facility: [facility] Address: [address] [place] [address] Performed By: #### 5 7021-8 ####[facility] ERA [id number] [place] [address] [place] Lymphocytes (Bld) [#/Vol] 1.81 10*3/uL Normal 1.00-4.00 [facility] Comment on above: Order Comment: Speci men Type: BLOOD SPECIMENOrdering Facility: [facility] Address: [address] [place] [address] Performed By: #### 5 7021-8 ####[facility]ATIONLIA [id number] [place] [address] [place] Lymphocytes/100 WBC (Bld) 29.4 % Normal [facility] Comment on above: Order Comment: Speci men Type: BLOOD SPECIMENOrdering Facility: [facility] Address: [address] [place] [address] Performed By: #### 5 7021-8 ####[facility]ATIONLIA [id number] [place] [address] [place] MCH (RBC) [Entitic mass] 24.9 pg Low 26.0-34.0 [facility] Comment on above: Order Comment: Speci men Type: BLOOD SPECIMENOrdering Facility: [facility] Address: [address] [place] [address] Performed By: #### 5 7021-8 ####[facility]ITALNCCEN[facility] [id number] [place] [address] [place] MCHC (RBC) [Mass/Vol] 30.6 g/dL Normal 30.5-36.0 [facility] Comment on above: Order Comment: Speci men Type: BLOOD SPECIMENOrdering Facility: [facility] Address: [address] [place] [address] Performed By: #### 5 7021-8 ####[facility]ITALNCCENTR[facility] [id number] [place] [address] [place] MCV (RBC) [Entitic vol] 81.3 fL Normal 80.0-100.0 [facility] Comment on above: Order Comment: Speci men Type: BLOOD SPECIMENOrdering Facility: [facility] Address: [address] [place] [address] Performed By: #### 5 7021-8 ####[facility]ITALNCC[facility] [id number] [place] [address] [place] Monocytes (Bld) [#/Vol] 0.33 10*3/uL Normal <0.87 [facility] Comment on above: Order Comment: Speci men Type: BLOOD SPECIMENOrdering Facility: [facility] Address: [address] [place] [address] Performed By: #### 5 7021-8 ####[facility] [id number] [place] [address] [place] Monocytes/100 WBC (Bld) 5.4 % Normal [facility] Comment on above: Order Comment: Speci men Type: BLOOD SPECIMENOrdering Facility: [facility] Address: [address] [place] [address] Performed By: #### 5 7021-8 ####[facility] ERA [id number] [place] [address] [place] [place] Neutrophils (Bld) [#/Vol] 3.79 10*3/uL Normal 1.45-7.50 [facility] Comment on above: Order Comment: Speci men Type: BLOOD SPECIMENOrdering Facility: [facility] Address: [address] [place] [address] Performed By: #### 5 7021-8 ####[facility] ERA [id number] [place] [address] [place] Neutrophils/100 WBC (Bld) 61.6 % Normal [facility] Comment on above: Order Comment: Speci men Type: BLOOD SPECIMENOrdering Facility: [facility] Address: [address] [place] [address] Performed By: #### 5 7021-8 ####[facility] ERA [id number] [place] [address] [place] Nucleated RBC (Bld) [#/Vol] 10*3/uL Normal <0.01 [facility] Comment on above: Order Comment: Speci men Type: BLOOD SPECIMENOrdering Facility: [facility] Address: [address] [place] [address] Performed By: #### 5 7021-8 ####[facility] [id number] [place] [address] [place] Nucleated RBC/100 WBC (Bld) [Ratio] 0.0 /100 WBC Normal [facility] Comment on above: Order Comment: Speci men Type: BLOOD SPECIMENOrdering Facility: [facility] Address: [address] [place] [address] Performed By: #### 5 7021-8 ####[facility] MILLTOWNCLIA [id number] [place] [address] [place] Platelet mean volume (Bld) [Entitic vol] 8.3 fL Low 9.0-12.7 [facility] Comment on above: Order Comment: Speci men Type: BLOOD SPECIMENOrdering Facility: [facility] Address: [address] [place] [address] Performed By: #### 5 7021-8 ####[facility] WAGNERA [id number] [place] [address] [place] Platelets (Bld) [#/Vol] 191 10*3/uL Normal 150-400 [facility] Comment on above: Order Comment: Speci men Type: BLOOD SPECIMENOrdering Facility: [facility] Address: [address] [place] [address] Performed By: #### 5 7021-8 ####[facility]ITAL[facility]AVENA [id number] [place] [address] [place] RBC (Bld) [#/Vol] 3.58 10*6/uL Low 4.20-6.00 [facility] Comment on above: Order Comment: Speci men Type: BLOOD SPECIMENOrdering Facility: [facility] Address: [address] [place] [address] Performed By: #### 5 7021-8 ####[facility] BIENVENIDOHOUSTONHEAVENA [id number] [place] [address] [place] WBC (Bld) [#/Vol] 6.15 10*3/uL Normal 3.70-11.00 [facility] Comment on above: Order Comment: Speci men Type: BLOOD SPECIMENOrdering Facility: [facility] Address: [address] [place] [address] Performed By: #### 5 7021-8 ####[facility]OS[facility]ITALANGELICALIA [id number] [place] [id number] [place] [address] [place] CNTHERAPYon 02-18-2024 CNTHERAPY OT/PT/Speech Visit ([facility]) -- LUTHER CASTILLO ([id number]) 1955 M Date Time Provider Department 02/18/24 1:15 PM ROSEANNA HUGHES [facility] Date Time Provider Department Center 02/18/2024 1:15 PM [id number], AMBER M [facility] M Reason for Visit: Physical Therapy [...] the MR contrast administration guidelines link. Normal [facility] CBC W/Diff, Automatedon 02-05 Anisocytosis Ql (Bld) 1+ Normal [facility] Comment on above: Performed By: #### L 500.4050, L100.0100 #### [facility] Laboratory [address] [place], [address] Surgery Visit Reporton 02-15 Surgery Visit Report [facility] [address] [place] [address] OFFICE VISIT Date of Service: 02/16/24 MR#: [id number] Acct: [id number] Name: LUTHER CASTILLO ALLAN Rep #: [id number] : 1955 Provider: JENNY march Age/Sex: 68/M Location: [facility] Status: Signed Intake Vital Signs 02/05/24 [...] Op Diagnoses Status post laparoscopic appendectomy Z90.49 [facility] Social History Smoking Status: Never smoker Assessment [...] López Ocampo MD; Dr. Rohit Crawford MD [facility] CNTHERAPYon 02-13-2024 CNTHERAPY OT/PT/Speech Visit ([facility]) -- LUTHER CASTILLO ([id number]) 1955 M Date Time Provider Department 02/13/24 11:45 AM ROSEANNA HUGHES [facility] Date Time Provider Department Center 02/13/2024 11:45 AM [id number], AMBER M [facility] M Reason for Visit: Physical Therapy [...] in the MR contrast administration guidelines link. [facility] CNTHERAPYon 02-11-2024 CNTHERAPY OT/PT/Speech Visit ([facility]) -- LUTHER CASTILLO ([id number]) 1955 M Date Time Provider Department 02/11/24 11:00 AM ROSEANNA HUGHES [facility] Date Time Provider Department Center 02/11/2024 11:00 AM [id number], AMBER M [facility] Reason for Visit: Physical Therapy [...] in the MR contrast administration guidelines link. Trench Digger Helper: Therapy (PT/OT/Speech/Resp) ID: [id number] 02/11/2024 11:40 AM Author: ROSEANNA HUGHES Signed by ROSEANNA HUGHES PRESS SUPERVISOR on 02/11/2024 at 11:40 AM Document text: Program_ID:[id number] Access Code: [email or web address] URL: [email or web address] Date: 02-11-2024 Prepared By: ENDY CURRAN Program [...] - 3 sets - 10 reps Normal [facility] Culture, Anaerobic Any [facility] binh 02-11-2024 CUAN Collected in OR - Peritoneal Fluid Studies Have Confirmed That B. Fragilis Group are Routinely Susceptible to: Metronidazole, Piperacillin/Tazobactam, Amoxicillin/Clavulanic acid, and Ertapenem. They are showing an increased RESISTANCE to Penicillin, Clindamycin and Moxifloxacin. Bacteroides thetaiotaomicron Bacteroides caccae Normal [facility] Comment on above: Performed By: #### L 501.8820 #### [facility] Laboratory [address] [place], [address] THERAPY NTon 02-11-2024 THERAPY NT HNO ID: [id number] Author: ROSEANNA HUGHES PTA Service: ? Author Type: Robotics Technician Type: Therapy (PT/OT/Speech/Resp) Filed: 02/11/2024 11:40 Note Text: Program_ID:[id number] Access Code: [email or web address] URL: [email or web address] Date: 02-11-2024 Prepared By: ENDY CURRAN Program [...] - 3 sets - 10 reps Normal [facility] CBC W/Diff, Automatedon 11-0 PATH REV Reviewed Normal [facility] Comment on above: Result Comment: Norm ocytic anemia. MILD Thrombocytopenia. Clinical correlation necessary. Toy Cerrato M.D. 02/09/24 AMENDED REPORT 02/09/24 1420 PATH REV previously reported as: Lauren holder Performed By: #### L 100.0100 ####[facility] [address] [place], [address] Wound Cultureon 02-08-2024 WC Collected in OR - Peritoneal Fluid Raoultella planticola Amount Growth 1+ Raoultella planticola: REACTION Ampicillin Islt DAILY Ampicillin+Sulbac Islt DAILY <=2 S ceFAZolin Islt DAILY <=4 S Ciprofloxacin Islt DAILY <=0.25 S Gentamicin Islt DAILY <=1 S levoFLOXacin Islt DAILY <=0.12 S Tobramycin Islt DAILY <=1 S TMP SMX Islt DAILY <=20 S Normal [facility] Comment on above: Performed By: #### L 501.8820 #### [facility] Laboratory [address] [place], [address] Basic Metabolic Profile (BMP )on 02-06-2024 BUN/CRE 22.5 RATIO High 10-20 [facility] Comment on above: Performed By: #### L 500.4050, L100.0100 #### [facility] Laboratory [address] [place], [address] CA,Total 7.5 mg/dL Low 8.5-10.1 [facility] Comment on above: Performed By: #### L 500.4050, L100.0100 #### [facility] Laboratory [address] [place], [address] Chloride [Moles/Vol] 110 mmol/L High 98-107 [facility] Comment on above: Performed By: #### L 500.4050, L100.0100 #### [facility] [address] [place], [address] CO2 [Moles/Vol] 23.0 mmol/L Normal 21.0-32.0 [facility] Comment on above: Performed By: #### L 500.4050, L100.0100 #### [facility] Laboratory [address] [place], [address] Creatinine [Mass/Vol] 0.93 mg/dL Normal 0.70-1.30 [facility] Comment on above: Result Comment: The validity of the calculated GFR GFRAA in patients over 70 years has not been determined. Clinical correlation is essential. Performed By: #### L 500.4050, L100.0100 #### [facility] [address] [place], [address] ECRCL 70.67 ml/min Normal [facility] Comment on above: Performed By: #### L 500.4050, L100.0100 #### [facility] [address] [place], [address] EST GFR - AA 103 mL/min Normal >60 [facility] Comment on above: Result Comment: Afri can Dominican GFR Calc Performed By: #### L 500.4050, L100.0100 #### [facility] Laboratory [address] [place], [address] GAP 6 Normal 5-15 [facility] Comment on above: Performed By: #### L 500.4050, L100.0100 #### [facility] [address] [place], [address] GFR/1.73 sq M.predicted among non-blacks MDRD (S/P/Bld) [Vol rate/Area] 85 mL/min/{1.73_m2} Normal >60 [facility] Comment on above: Result Comment: Non- GFR Calc Performed By: #### L 500.4050, L100.0100 #### [facility] Laboratory [address] [place], [address] Glucose [Mass/Vol] 159 mg/dL High 74-106 [facility] Comment on above: Result Comment: Fast ing Glucose result greater than or equal to 126 mg/dL suggests DIABETES MELLITUS per A.D.A. criteria. Performed By: #### L 500.4050, L100.0100 #### [facility] Laboratory [address] [place], [address] Potassium [Moles/Vol] 4.0 mmol/L Normal 3.5-5.1 [facility] Comment on above: Performed By: #### L 500.4050, L100.0100 #### [facility] [address] [place], [address] Sodium [Moles/Vol] 138 mmol/L Normal 136-145 [facility] Comment on above: Performed By: #### L 500.4050, L100.0100 #### [facility] Laboratory [address] [place], [address] Urea nitrogen [Mass/Vol] 21 mg/dL High 7-18 [facility] Comment on above: Performed By: #### L 500.4050, L100.0100 #### [facility] Laboratory [address] [place], [address] Discharge Instructionon 0 Discharge Instruction [facility] Medical Records Department [address] [place] [address] Instructions for Home/Discharge Instructions 02/06/24 0939 MR#: [id number] Acct: [id number] Name: LUTHER CASTILLO ALLAN Rep #: [id number] : 1955 68 From: Rohit Crawford MD [...] W/Diff, Automated (Routine) Timeframe: 1 Week Facility: [facility] - Location: Laboratory Ordered By: Dr. Rohit Crawford Referrals / Follow Up: López Ocampo MD [Primary Care Provider] - Disposition Disposition (needs filled in before D/C Order can be placed): Home, Self Care 02/06/24 0905 Rohit Crawford MD CC: Dr. López Ocampo MD Signed Normal [facility] Gram Stainon 02-06-2024 GS Collected in OR - Peritoneal Fluid Gram Stain 3+ White Blood Cells No organisms seen Normal [facility] Comment on above: Performed By: #### L 304.3178 #### [facility] Laboratory [address] [place], [address] HH, Hemoglobin AND Hematocr iton 02-06-2024 Hematocrit (Bld) [Volume fraction] 27.3 % Low 40-54 [facility] Comment on above: Performed By: #### L 500.4050, L100.0100 #### [facility] Laboratory [address] [place], [address] Hemoglobin (Bld) [Mass/Vol] 7.9 g/dL Low 13.0-16.5 [facility] Comment on above: Performed By: #### L 500.4050, L100.0100 #### [facility] Laboratory [address] [place], [place], [address] Special Stain Group IIon Special Stain Group II --------- Patient Age/Sex Location Account Attending Physician LUTHER CASTILLO II 68/M MS3 [id number] Dr. Rohit Crawford MD Specimen: [id number] Received: 02/06/24 Status: SONIYA Bradford Num: [id number] Spec Type: Fluid Subm Dr: Dr. Rohit Crawford MD HEADER OPERATION: Not noted PRE-OP DIAGNOSIS: Acute appendicitis TISSUE SUBMITTED: Peritoneal fluid for cytology DIAGNOSIS CYTOLOGY Peritoneal fluid for cytology (cytospin and cellblock): Negative for malignant cells. Acute inflammation. See comment. SJ. 02/09/2024 COMMENT Please make reference to additional specimen [id number] appendix, appendectomy with diagnosis of acute appendicitis and periappendicitis. Clinical correlation and appropriate follow up are necessary. CYTOLOGY STUDY Slides are reviewed. CYTOLOGY GROSS Received is 5 ml of yellow-cloudy fluid labeled with the patient's name and and designated per the requisition as Peritoneal fluid. Submitted for cytology preparation including cell block. 02/06/2024 TC:2 CPT: 26700,83670 Signed (signature on file) Dr. Toy Cerrato MD 02/10/24 1156 Normal [facility] Comment on above: Performed By: #### L 501.8820 #### [facility] Laboratory [facility] [place], [address] 12 Lead EKGon 02-05-2024 12 Lead EKG [facility] Cardiovascular Services [address] [place] [address] 12 Lead EKG 02/05/24 1329 MR#: [id number] Acct: [id number] Name: LUTHER CASTILLO II Rep #: [id number] : 1955 68 From: Timmy Sood MD Attending Dr: Dr. Rohit Crawford MD Status: ADM CARLENE Ordering Dr: Ajay Garcia DO Date: 02/05/24 [place] [facility] Sex: M C Admitted: 02/05/24 Test Reason [...] abnormality Prolonged QT Abnormal ECG Confirmed by TIMMY SOOD MD ([id number]), script editor DERREK PAN ([id number]) on 02/06/2024 8:21:22 AM Referred By: Confirmed By: TIMMY SOOD MD 02/06/24 08 Date Timmy Sood MD CC: Dr. López Ocampo MD; Dr. Rohit Crawford MD; Dr. Ajay Garcia DO Signed Normal [facility] Abdomen/Pelvis without Conto n 02-05-2024 Abdomen/Pelvis without Cont [facility] Imaging Services [address] [place] [address] Abdomen/Pelvis without Cont MR#: [id number] Acct: [id number] Name: LUTHER CASTILLO II Rep #: [id number] : 1955 M 68 From: Maximo stern MD PCP: Dr. López Ocampo MD Status: REG ER Study: Abdomen/Pelvis without Cont Date of Exam: 01/07 04/30 Exam# [id number] Ordering Dr: Ajay Garcia DO [id number] STUDY: CT ABDOMEN AND PELVIS WITHOUT CONTRAST [...] Signed: Maximo Krause MD at 12:08 EDT , CC: Dr. López Ocampo MD; Dr. Ajay Garcia DO Tool And Die Supervisor: Signed Normal [facility] Basic Metabolic Profile (BMP )on 02-05-2024 BUN/CRE 23.4 RATIO High 10-20 [facility] Comment on above: Performed By: #### L 100.0100, L500.2500 ####[facility] [address] [place], [address] CA,Total 9.1 mg/dL Normal 8.5-10.1 [facility] Comment on above: Performed By: #### L 100.0100, L500.2500 ####[facility] [address] [place], [address] Chloride [Moles/Vol] 106 mmol/L Normal 98-107 [facility] Comment on above: Performed By: #### L 100.0100, L500.2500 ####[facility] [address] [place], [address] CO2 [Moles/Vol] 24.0 mmol/L Normal 21.0-32.0 [facility] Comment on above: Performed By: #### L 100.0100, L500.2500 ####[facility] [address] [place], [address] Creatinine [Mass/Vol] 0.98 mg/dL Normal 0.70-1.30 [facility] Comment on above: Result Comment: The validity of the calculated GFR GFRAA in patients over 70 years has not been determined. Clinical correlation is essential. Performed By: #### L 100.0100, L500.2500 ####[facility] [address] [place], [address] ECRCL 67.06 ml/min Normal [facility] Comment on above: Performed By: #### L 100.0100, L500.2500 ####[facility] [address] [place], [address] EST GFR - AA 97 mL/min Normal >60 [facility] Comment on above: Result Comment: Afri can Dominican GFR Calc Performed By: #### L 100.0100, L500.2500 ####[facility] [address] [place], [address] GAP 10 Normal 5-15 [facility] Comment on above: Performed By: #### L 100.0100, L500.2500 ####[facility] [address] [place], [address] GFR/1.73 sq M.predicted among non-blacks MDRD (S/P/Bld) [Vol rate/Area] 80 mL/min/{1.73_m2} Normal >60 [facility] Comment on above: Result Comment: Non- GFR Calc Performed By: #### L 100.0100, L500.2500 ####[facility] [address] [place], [address] Glucose [Mass/Vol] 97 mg/dL Normal 74-106 [facility] Comment on above: Performed By: #### L 100.0100, L500.2500 ####[facility] [address] [place], [address] Potassium [Moles/Vol] 3.6 mmol/L Normal 3.5-5.1 [facility] Comment on above: Performed By: #### L 100.0100, L500.2500 ####[facility] [address] [place], [address] Sodium [Moles/Vol] 140 mmol/L Normal 136-145 [facility] Comment on above: Performed By: #### L 100.0100, L500.2500 ####[facility] [address] [place], [address] Urea nitrogen [Mass/Vol] 23 mg/dL High 7-18 [facility] Comment on above: Performed By: #### L 100.0100, L500.2500 ####[facility] [address] [place], [address] CBC W/Diff, Automatedon 10-3 Anisocytosis Ql (Bld) 2+ Normal [facility] Comment on above: Performed By: #### L 100.0100, L500.2500 ####[facility] [address] [place], [address] HYPOCHROMASIA 1+ Normal [facility] Comment on above: Performed By: #### L 100.0100, L500.2500 ####[facility] [address] [place], [address] OVALOCYTE 2+ Normal [facility] Comment on above: Performed By: #### L 100.0100, L500.2500 ####[facility] [address] [place], [address] PLT EST ADEQUATE Normal ADEQ [facility] Comment on above: Performed By: #### L 100.0100, L500.2500 ####[facility] [address] [place], [address] POLYCHROMASIA 1+ Normal [facility] Comment on above: Performed By: #### L 100.0100, L500.2500 ####[facility] [address] [place], [address] SMEAR COMMENT SCANNED Normal [facility] Comment on above: Performed By: #### L 100.0100, L500.2500 ####[facility] [address] [place], [address] TEAR DROP 1+ Normal [facility] Comment on above: Performed By: #### L 100.0100, L500.2500 ####[facility] [address] [place], [address] CNPNon 02-05-2024 CNPN Normal [facility] Chest 1 View (Portable)on Chest 1 View (Portable) [facility] Imaging Services [address] [place] [address] Chest 1 View (Portable) MR#: [id number] Acct: [id number] Name: LUTHER CASTILLO II Rep #: [id number] : 1955 M 68 From: Maximo stern MD PCP: Dr. López Ocampo MD Status: [facility] Study: Chest 1 View (Portable) Date of Exam: 02/05/24 Exam# [id number] Ordering Dr: Ajay Garcia DO [id number] STUDY: X-RAY CHEST REASON FOR EXAM: Male, [...] Signed: Maximo Krause MD at 14:15 EDT Reading Location ID and State: [facility] / [place] , Service support , CC: Dr. López Ocampo MD; Dr. Ajay Garcia DO Tool And Die Supervisor: Signed Normal [facility] Cytology, Body Fluid / CSFon 02-05-2024 CYTOLOGY,BF/CSF SEE PATHOLOGY REPORT Normal [facility] Comment on above: Order Comment: Comme nts: Trough to be drawn 30 mins prior to scheduled dose 1730 Result Comment: Spec imen submitted to Anatomical Pathology Department for testing. Performed By: #### L 501.8820 #### [facility] Laboratory [address] [place], [address] Emergency Department Summary on 02-05-2024 Emergency Department Summary [facility] Medical Records Department [address] [facility] [place] [address] Emergency Department Summary 02/05/24 MR#: [id number] Acct: [id number] Name: LUTHER CASTILLO II Rep #: [id number] : 1955 68 From: Ajay Rizo PCP: Dr. López Ocampo MD Status:ADM CARLENE Location: [place] [address] HPI HPI - GI History of Present [...] on medications followed by Dr. Herring. Urologist ([place]). Prior similar symptoms: No PFSH PFSH Home [...] however CT negative (more content not included)... Normal [facility] MR/POSTOP.[employer] [facility] [employer] 02-05[facility]2024 MR/POSTOP.[facility] Medical Records Department [address] [place] [address] Anesthesia Postop Eval I 02/05/24 1717 MR#: [id number] Acct: [id number] Name: LUTHER CASTILLO II Rep #: [id number] : 1955 68 From: Nelia Mathews CRNA PCP: Dr. López Ocampo MD Status:REG SDC Y Race: C Location: [place] [address] Anesthesia: Postop Eval I Current Vital Signs [...] Anesthesia document: Postop Eval 1 completed: Yes 02/05/24 1719 Date Nelia Bisi PREBOARDER Cosigner Signature: Date CC: Signed Normal [facility] MR/TBRGCQDB0fm 02-05-2024 MR/POSTOPAN2 [facility] Medical Records Department [address] [place] [address] Anesthesia Postop Eval II 02/05/24 1726 MR#: [id number] Acct: [id number] Name: LUTHER CASTILLO ALLAN Rep #: [id number] : 1955 68 From: Bhanu Salinas MD PCP: Dr. López Ocampo MD Status:REG SDC Y Race: C Location: [place] [address] Anesthesia Postop Eval I Sum Postop Eval Completion status Anesthesia document: Postop Eval 1 completed: Yes Anesthesia Postop Eval I Summary Anesthesia Postop Eval I Summary: Anesthesia Postop Eval I: Assessment Summary Airway patent Yes 02/05/24 17:19 PREBOARDER.OBEDOBY Spontaneous unlabored Yes 02/05/24 17:19 PREBOARDER.OBEDOBY respirations Mental status Awake,Calm 02/05/24 17:19 PREBOARDER.SKOBY nausea No 02/05/24 17:19 PREBOARDER.SKOBY Vomiting No 02/05/24 17:19 PREBOARDER.SKOBY Anesthesia Postop Eval I: Fluid Summary Crystalloid volume administer 1,000 02/05/24 17:19 PREBOARDER.SKOBY (ml) Colloids volume administered ( ml) Blood Product volume administered (ml) Total IV fluid infused 1,000 02/05/24 17:19 PREBOARDER.SKOBY Anesthesia Postop Eval I: Summary Notes Anesthesia Complication No 02/05/24 17:19 PREBOARDERMO Anesthesia Complication Comment: Post-operative progress note Anesthesia: Postop Eval II Evaluation Mental status: Awake Pain Level: 2 nausea: No Vomiting: No 02/05/24 1726 Date Bhanu Tarango Signature: Date CC: Signed Normal [facility] Operative Reporton 4 Operative Report [facility] Medical Records Department [address] [place] [address] Operative Report 02/05/24 1702 MR#: [id number] Acct: [id number] Name: LUTHER CASTILLO ALLAN Rep #: [id number] : 1955 68 From: Rohit Crawford MD PCP: Dr. López Ocampo MD Status:[facility] Location: [place] [address] Operative Report (Standard) Operative Information Surgery/Procedure Performed: [...] was closed with #1 Vicryl in a afscqc-bj-dahvy fashion. The port sites were infiltrated with [...] Evidence of a right-sided indirect inguinal hernia Instructor Ballroom Dancing credit analysis manager: Yes Hand Inserter Operator: Jonathan Prsesley Tasks completed by first mate: Opening, Closing and Other (Laparoscopic camera) Complications Complications: Yes Complication Details: None Admit VTE Documentation VTE Mechan Device Prophylaxis: SCD's Procedures Digestive 40xxx-49xxx: 33373 Laparoscopy appendectomy 02/05/24 1716 Cosigner Signature (if applicable): CC: Dr. López Ocampo MD; Dr. Rohit Crawford MD Signed Normal [facility] Partial Thromboplast Timeon 02-05-2024 aPTT Coag (Bld) [Time] 23.5 s Low 24.1-36.2 [facility] Comment on above: Performed By: #### L 500.4050, L100.0100 #### [facility] Laboratory [address] [place], [address] Prothrombin Time w/INRon INR Coag (PPP) [Relative time] 1.1 {INR} Normal [facility] Comment on above: Performed By: #### L 500.4050, L100.0100 #### [facility] Laboratory [address] [place], [address] PT Coag (PPP) [Time] 14.0 s Normal 11.7-14.9 [facility] Comment on above: Performed By: #### L 500.4050, L100.0100 #### [facility] Laboratory [address] [place], [address] Surgery Specimen Level IIIon 02-05-2024 Surgery Specimen Level III Patient Age/Sex Location Account Attending Physician LUTHER CASTILLO II 68/M MS3 [id number] Dr. Rohit Crawford MD Specimen: [id number] Received: 02/05/24 Status: SONIYA Bradford Num: [id number] Spec Type: APPENDIX Subm Dr: Dr. Rohit Crawford MD HEADER OPERATION: Laparoscopic appendectomy PRE-OP DIAGNOSIS: Acute appendicitis TISSUE SUBMITTED: Appendix MICROSCOPIC DIAGNOSIS Appendix, appendectomy: Acute appendicitis and periappendicitis. See comment. SJ. 02/09/2024 COMMENT Please also make reference additional [...] any fecal material. No fecalith is identified. Timber Supervisor sections are submitted in one cassette. SJ. 02/06/2024 Rest of the specimen is submitted in two cassettes. Cassette 2 contains the tip and most proximal portion. / SJ:mr 02/09/2024 TC:2 CPT: 19050 Patient Age/Sex Location Account Attending Physician LUTHER CASTILLO II 68/M MS3 [id number] Dr. Rohit Crawford MD Signed (signature on file) Dr. Toy Cerrato MD 02/10/24 1156 Normal [facility] Comment on above: Performed By: #### P SUIII ####[facility] [address] [place], [address] Type AND Screenon 02-05-2024 Ab SCREEN GEL Negative Normal [facility] Comment on above: Order Comment: S Performed By: #### L 500.4050, L100.0100 #### [facility] Laboratory [address] [place], [address] Urinalysis, Completeon 02-04 AMORPHOUS 1+ Normal [facility] Comment on above: Order Comment: CLEAN CATCH Performed By: #### L 400.0001 ####[facility] [address] [place], [address] BACTERIA RARE Normal None Seen [facility] Comment on above: Order Comment: CLEAN CATCH Performed By: #### L 400.0001 ####[facility] [address] [place], [address] EPI,SQUAMOUS 0 SEEN Normal 0-5 [facility] Comment on above: Order Comment: CLEAN CATCH Performed By: #### L 400.0001 ####[facility] [address] [place], [address] Mucus Ql (Urine sed) 0 SEEN Normal [facility] Comment on above: Order Comment: CLEAN CATCH Performed By: #### L 400.0001 ####[facility] [address] [place], [address] RBC 0 SEEN Normal 0-5 [facility] Comment on above: Order Comment: CLEAN CATCH Performed By: #### L 400.0001 ####[facility] [address] [place], [address] WBC 0 SEEN Normal 0-5 [facility] Comment on above: Order Comment: CLEAN CATCH Performed By: #### L 400.0001 ####[facility] [address] [place], [address] CNOVon 02-03-2024 CNOV Normal [facility] CNPNon 02-03-2024 CNPN Normal [facility] No Panel Informationon 02-02 IMPRESSION: 1 mm posterior RIGHT testicular calcification. Sonographic appearance of the scrotal contents is otherwise unremarkable. Normal arterial and venous flow within both testes. No abnormality is demonstrated in the LEFT inguinal canal. Tool And Die Supervisor: APRIL Transcribe Date/Time: Feb 03 2024 2:57P Dictated by : CONSTANTIN LEON MD This examination was interpreted and the report reviewed and electronically signed by: CONSTANTIN LEON MD on Feb 03 2024 3:03PM [facility] [[email or web address] DIVISION OF RADIOLOGY Radiology Study observation (narrative) [facility] No Panel InformationOrdered By: Ccf Provider on 02-03-2024 [facility] US DOPPLER COMPLETEon 2023 US DOPPLER COMPLETE Normal [facility] US SCROTUM AND CONTENTSon US SCROTUM AND CONTENTS Normal [facility] US.doppler Scrotum and testi hali 02-03-2024 [...] canal are unremarkable. DIVISION OF RADIOLOGY Provider, [facility] - 02/03/2024 * * *Final Report* * * DATE OF EXAM: Feb 03 2024 2:56PM [facility] 1063 - US SCROTUM AND CONTENTS / [...] is demonstrated in the LEFT inguinal canal. Tool And Die Supervisor: [facility] Transcribe Date/Time: Feb 03 2024 2:57P Dictated by : CONSTANTIN LEON MD This examination was interpreted and the report reviewed and electronically signed by: CONSTANTIN LEON MD on Feb 03 2024 3:03PM [facility].doppler Unspecified body regionon 02-03-2024 * * *Final Report* * * DATE OF EXAM: Feb 03 2024 2:56PM [facility] 1033 - US DOPPLER COMPLETE / [...] canal are unremarkable. DIVISION OF RADIOLOGY Provider, [facility] - 02/03/2024 * * *Final Report* * * DATE OF EXAM: Feb 03 2024 2:56PM [facility] 1033 - US DOPPLER COMPLETE / [...] is demonstrated in the LEFT inguinal canal. 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 Author Type: Physical Therapist Type: [id number] Filed: 01/29/2024 14:32 Note Text: [facility] Rehabilitation and Sports Therapy Physical Therapy Plan of Care Certification Patient Name: Luther Castillo : 1955 CCF #: [id number] Date: 01/29/2024 To: Catherine Peraza APRN, RANGE SCIENTIST From Therapist: Endy Curran PT, DERRICK RE: [...] Planned: 12 Planned Treatment Interventions: Therapeutic exercise (43919), Manual therapy (59418), Therapeutic activities (73325), Self-long-term management (10401), Patient/Family/Caregiver Education, Body Mechanics Training PLAN FOR [...] reviewed the treatment plan for Luther Castillo, CC# [id number] for the period of 01/29/24 -- 03/19/24, established on 01/29/2024. Signature certifies the need for therapy services. [facility] 01-29-2024 CNTHERAPY OT/PT/Speech Visit ([facility]) -- LUTHER CASTILLO ([id number]) 1955 M Date Time Provider Department 01/29/24 9:30 AM ENDY CURRAN [facility] Date Time Provider Department Center 01/29/2024 9:30 AM [id number], CYNTHIA*[facility] M Reason for Visit: PT Eval [747] Primary Visit Diagnosis:Left hip pain [M25.552] Other Visit Diagnoses:Radiculopathy, lumbar region [M54.16] Decreased ROM of lumbar spine [M53.86] Weakness of trunk musculature [M62.81] Allergies As of Date: 01/29/2024 Noted Allergy Reaction RAGWEED POLLEN 06/11/2023 14 - Other: See Comments Comments: Watering/itchy eyes Date Reviewed: 01/21/2024 Reviewed by: Sienna Anglin Ma, VEE - Fully Assessed Prescriptions as of 02/03/2024 [...] in the MR contrast administration guidelines link. Trench Digger Helper: Addendum Therapy (PT/OT/Speech/Resp) ID: [id number] 01/29/2024 10:39 AM Author: ENDY CURRAN Signed by ENDY CURRAN PT on 01/29/2024 at 10:39 AM * * * This document replaces document [id number] * * * Document text: Program_ID:[id number] Access Code: [email or web address] URL: [email or web address] Date: 01-29-2024 Prepared By: ENDY CURRAN Program [...] - 1 sets - 5 reps Normal [facility] THERAPY NTon 01-29-2024 THERAPY NT HNO ID: [id number] Author: ENDY CURRAN, SHAMIKA Service: ? Author Type: Physical Therapist Type: Therapy (PT/OT/Speech/Resp) Filed: 01/29/2024 10:39 Note Text: Program_ID:[id number] Access Code: [email or web address] URL: [email or web address] Date: 01-29-2024 Prepared By: ENDY CURRAN Program [...] - 1 sets - 5 reps Normal [facility] CNPNon 01-23-2024 CNPN Normal [facility] Basic metabolic 2000 panelon 01-21-2024 Anion gap [Moles/Vol] 8 mmol/L Normal 8-15 [facility] Comment on above: Order Comment: Speci men Type: BLOOD SPECIMENOrdering Facility: [facility] Address: [address] [place] [address] Performed By: #### 2 4321-2 ####[facility] [id number] [place] [address] [place] Calcium [Mass/Vol] 9.1 mg/dL Normal 8.5-10.2 [facility] Comment on above: Order Comment: Speci men Type: BLOOD SPECIMENOrdering Facility: [facility] Address: [address] [place] [address] Performed By: #### 2 4321-2 ####[facility] [id number] [place] [address] [place] Chloride [Moles/Vol] 104 mmol/L Normal 98-107 [facility] Comment on above: Order Comment: Speci men Type: BLOOD SPECIMENOrdering Facility: [facility] Address: [address] [place] [address] Performed By: #### 2 4321-2 ####[facility] [id number] [place] [address] [place] CO2 [Moles/Vol] 26 mmol/L Normal 22-30 [facility] Comment on above: Order Comment: Speci men Type: BLOOD SPECIMENOrdering Facility: [facility] Address: [address] [place] [address] Performed By: #### 2 4321-2 ####[facility] [id number] [place] [address] [place] Creatinine [Mass/Vol] 0.95 mg/dL Normal 0.73-1.22 [facility] Comment on above: Order Comment: Speci men Type: BLOOD SPECIMENOrdering Facility: [facility] Address: [address] [place] [address] Performed By: #### 2 4321-2 ####[facility] [id number] [address] [facility] Creatinine and Glomerular filtration rate.predicted panel (S/P/Bld) 86 mL/min/1.73m??? Normal >=60 [facility] Comment on above: Order Comment: Speci men Type: BLOOD SPECIMENOrdering Facility: [facility] Address: [address] [place] [address] Result Comment: Beth mated Glomerular Filtration Rate [...] actual GFR. Performed By: #### 2 4321-2 ####[facility] MILLTOWNCLIA [id number] [place] [address] [place] Glucose [Mass/Vol] 95 mg/dL Normal 74-99 [facility] Comment on above: Order Comment: Speci men Type: BLOOD SPECIMENOrdering Facility: [facility] Address: [address] [place], [place] [address] Result Comment: The [place] Diabetes Association (ADA) provides guidance for cutoff [...] Standards of Medical Care in Diabetes 2016, [place] Diabetes Association. Diabetes Care. 2016.39(Suppl 1). Performed By: #### 2 4321-2 ####[facility] MILLTOWNCLIA [id number] [place] [address] [place] Potassium [Moles/Vol] 4.0 mmol/L Normal 3.7-5.1 [facility] Comment on above: Order Comment: Speci men Type: BLOOD SPECIMENOrdering Facility: [facility] Address: [address] [place] [address] Performed By: #### 2 4321-2 ####[facility] MILLCAESARWNCLIA [id number] [place] [address] [place] Sodium [Moles/Vol] 138 mmol/L Normal 136-144 [facility] Comment on above: Order Comment: Speci men Type: BLOOD SPECIMENOrdering Facility: [facility] Address: [address] [place], [place] [address] Performed By: #### 2 4321-2 ####[facility] [id number] [place] [address] [place] Urea nitrogen [Mass/Vol] 15 mg/dL Normal 9-24 [facility] Comment on above: Order Comment: Speci men Type: BLOOD SPECIMENOrdering Facility: [facility] Address: [address] [place] [address] Performed By: #### 2 4321-2 ####[facility] [id number] [place] [address] [place] CBC W Auto Differential pane l (Bld)on 01-21-2024 Basophils (Bld) [#/Vol] 10*3/uL Normal <0.11 [facility] Comment on above: Order Comment: Speci men Type: BLOOD SPECIMENOrdering Facility: [facility] Address: [address] [place] [address] Performed By: #### 5 7021-8 ####[facility] [id number] [place] [address] [place] Basophils/100 WBC (Bld) 0.3 % Normal [facility] Comment on above: Order Comment: Speci men Type: BLOOD SPECIMENOrdering Facility: [facility] Address: [address] [place] [address] Performed By: #### 5 7021-8 ####[facility] [id number] [place] [address] [place] Differential cell count method Nom (Bld) Auto Normal [facility] Comment on above: Order Comment: Speci men Type: BLOOD SPECIMENOrdering Facility: [facility] Address: [address] [place] [address] Performed By: #### 5 7021-8 ####[facility] [id number] [place] [address] [place] Eosinophils (Bld) [#/Vol] 0.34 10*3/uL Normal <0.46 [facility] Comment on above: Order Comment: Speci men Type: BLOOD SPECIMENOrdering Facility: [facility] Address: [address] [place] [address] Performed By: #### 5 7021-8 ####[facility] [id number] [place] [address] [place] Eosinophils/100 WBC (Bld) 5.5 % Normal [facility] Comment on above: Order Comment: Speci men Type: BLOOD SPECIMENOrdering Facility: [facility] Address: [address] [place] [address] Performed By: #### 5 7021-8 ####[facility] [id number] [place] [address] [place] Erythrocyte distribution width (RBC) [Ratio] 20.1 % High 11.5-15.0 [facility] Comment on above: Order Comment: Speci men Type: BLOOD SPECIMENOrdering Facility: [facility] Address: [address] [place] [address] Performed By: #### 5 7021-8 ####[facility] [id number] [place] [address] [place] Hematocrit (Bld) [Volume fraction] 30.6 % Low 39.0-51.0 [facility] Comment on above: Order Comment: Speci men Type: BLOOD SPECIMENOrdering Facility: [facility] Address: [address] [place] [address] Performed By: #### 5 7021-8 ####[facility]ITALNCLIA [id number] [place] [address] [place] Hemoglobin (Bld) [Mass/Vol] 9.2 g/dL Low 13.0-17.0 [facility] Comment on above: Order Comment: Speci men Type: BLOOD SPECIMENOrdering Facility: [facility] Address: [address] [place] [address] Performed By: #### 5 7021-8 ####[facility] MILLTOWNCLIA [id number] [place] [address] [place] Immature granulocytes (Bld) [#/Vol] 10*3/uL Normal <0.10 [facility] Comment on above: Order Comment: Speci men Type: BLOOD SPECIMENOrdering Facility: [facility] Address: [address] [place] [address] Performed By: #### 5 7021-8 ####[facility] MILLWNCLIA [id number] [place] [address] [place] Immature granulocytes/100 WBC (Bld) 0.3 % Normal [facility] Comment on above: Order Comment: Speci men Type: BLOOD SPECIMENOrdering Facility: [facility] Address: [address] [place] [address] Performed By: #### 5 7021-8 ####[facility] HOSPITALWNCLIA [id number] [place] [address] [place] Lymphocytes (Bld) [#/Vol] 2.37 10*3/uL Normal 1.00-4.00 [facility] Comment on above: Order Comment: Speci men Type: BLOOD SPECIMENOrdering Facility: [facility] Address: [address] [place] [address] Performed By: #### 5 7021-8 ####[facility] MILLTOWNCLIA [id number] [place] [address] [place] Lymphocytes/100 WBC (Bld) 38.3 % Normal [facility] Comment on above: Order Comment: Speci men Type: BLOOD SPECIMENOrdering Facility: [facility] Address: [address] [place] [address] Performed By: #### 5 7021-8 ####[facility] MILLTOWNCLIA [id number] [place] [address] [place] MCH (RBC) [Entitic mass] 24.5 pg Low 26.0-34.0 [facility] Comment on above: Order Comment: Speci men Type: BLOOD SPECIMENOrdering Facility: [facility] Address: [address] [place] [address] Performed By: #### 5 7021-8 ####[facility]ITALHEAVEN [id number] [place] [address] [place] MCHC (RBC) [Mass/Vol] 30.1 g/dL Low 30.5-36.0 [facility] Comment on above: Order Comment: Speci men Type: BLOOD SPECIMENOrdering Facility: [facility] Address: [address] [place] [address] Performed By: #### 5 7021-8 ####[facility] [id number] [place] [address] [place] MCV (RBC) [Entitic vol] 81.4 fL Normal 80.0-100.0 [facility] Comment on above: Order Comment: Speci men Type: BLOOD SPECIMENOrdering Facility: [facility] Address: [address] [place] [address] Performed By: #### 5 7021-8 ####[facility] HOSPITALANGELICAShireen [id number] [place] [address] [place] Monocytes (Bld) [#/Vol] 0.40 10*3/uL Normal <0.87 [facility] Comment on above: Order Comment: Speci men Type: BLOOD SPECIMENOrdering Facility: [facility] Address: [address] [place] [address] Performed By: #### 5 7021-8 ####[facility] HOSPITALNCLI [id number] [place] [address] [place] Monocytes/100 WBC (Bld) 6.5 % Normal [facility] Comment on above: Order Comment: Speci men Type: BLOOD SPECIMENOrdering Facility: [facility] Address: [address] [place] [address] Performed By: #### 5 7021-8 ####[facility] BIENVENIDOWNCLIA [id number] [place] [address] [place] Neutrophils (Bld) [#/Vol] 3.03 10*3/uL Normal 1.45-7.50 [facility] Comment on above: Order Comment: Speci men Type: BLOOD SPECIMENOrdering Facility: [facility] Address: [address] [place] [address] Performed By: #### 5 7021-8 ####[facility] ERA [id number] [place] [address] [place] Neutrophils/100 WBC (Bld) 49.1 % Normal [facility] Comment on above: Order Comment: Speci men Type: BLOOD SPECIMENOrdering Facility: [facility] Address: [address] [place] [address] Performed By: #### 5 7021-8 ####[facility] ERA [id number] [place] [address] [place] Nucleated RBC (Bld) [#/Vol] 10*3/uL Normal <0.01 [facility] Comment on above: Order Comment: Speci men Type: BLOOD SPECIMENOrdering Facility: [facility] Address: [address] [place] [address] Performed By: #### 5 7021-8 ####[facility] ERA [id number] [place] [address] [place] Nucleated RBC/100 WBC (Bld) [Ratio] 0.0 /100 WBC Normal [facility] Comment on above: Order Comment: Speci men Type: BLOOD SPECIMENOrdering Facility: [facility] Address: [address] [place] [address] Performed By: #### 5 7021-8 ####[facility] CORONANCLIA [id number] [place] [address] [place] Platelet mean volume (Bld) [Entitic vol] 8.3 fL Low 9.0-12.7 [facility] Comment on above: Order Comment: Speci men Type: BLOOD SPECIMENOrdering Facility: [facility] Address: [address] [place] [address] Performed By: #### 5 7021-8 ####[facility]ITALNCLIA [id number] [place] [address] [place] Platelets (Bld) [#/Vol] 178 10*3/uL Normal 150-400 [facility] Comment on above: Order Comment: Speci men Type: BLOOD SPECIMENOrdering Facility: [facility] Address: [address] [place], [place] [address] Performed By: #### 5 7021-8 ####[facility]ITALNCLIA [id number] [place] [address] [place] RBC (Bld) [#/Vol] 3.76 10*6/uL Low 4.20-6.00 [facility] Comment on above: Order Comment: Speci men Type: BLOOD SPECIMENOrdering Facility: [facility] Address: [address] [place] [address] Performed By: #### 5 7021-8 ####[facility] HOSPITALWNCLIA [id number] [place] [address] [place] WBC (Bld) [#/Vol] 6.18 10*3/uL Normal 3.70-11.00 [facility] Comment on above: Order Comment: Speci men Type: BLOOD SPECIMENOrdering Facility: [facility] Address: [address] [place] [address] Performed By: #### 5 7021-8 ####[facility]ITALNCLIA [id number] [place] [address] [place] CNOVSPon 01-21-2024 CNOVSP Normal [facility] CNPNon 12-30-2023 CNPN Normal [facility] CNOVon 12-24-2023 CNOV Normal [facility] XR HIP 3V PELV+ AP/LAT LTon 12-24-2023 XR HIP 3V PELV+ AP/LAT LT Normal [facility] Basic metabolic 2000 panelon 12-17-2023 Anion gap [Moles/Vol] 11 mmol/L Normal 8-15 [facility] Comment on above: Order Comment: Speci men Type: BLOOD SPECIMENOrdering Facility: [facility] Address: [address] [place] [address] Performed By: #### 2 4321-2 ####[facility]ITALNCLIA [id number] [place] [address] [place] Calcium [Mass/Vol] 9.2 mg/dL Normal 8.5-10.2 [facility] Comment on above: Order Comment: Speci men Type: BLOOD SPECIMENOrdering Facility: [facility] Address: [address] [place] [address] Performed By: #### 2 4321-2 ####[facility]ITALNCLIA [id number] [place] [address] [place] Chloride [Moles/Vol] 103 mmol/L Normal 98-107 [facility] Comment on above: Order Comment: Speci men Type: BLOOD SPECIMENOrdering Facility: [facility] Address: [address] [place] [address] Performed By: #### 2 4321-2 ####[facility]ITALNCLIA [id number] [place] [address] [place] CO2 [Moles/Vol] 26 mmol/L Normal 22-30 [facility] Comment on above: Order Comment: Speci men Type: BLOOD SPECIMENOrdering Facility: [facility] Address: [address] [place] [address] Performed By: #### 2 4321-2 ####[facility] [id number] [place] [address] [place] Creatinine [Mass/Vol] 0.96 mg/dL Normal 0.73-1.22 [facility] Comment on above: Order Comment: Speci men Type: BLOOD SPECIMENOrdering Facility: [facility] Address: [address] [place] [address] Performed By: #### 2 4321-2 ####[facility]PITALNCCENTRAL VAL[facility] [id number] [place] [address] [place] Creatinine and Glomerular filtration rate.predicted panel (S/P/Bld) 85 mL/min/1.73m??? Normal >=60 [facility] Comment on above: Order Comment: Speci men Type: BLOOD SPECIMENOrdering Facility: [facility] Address: [address] [place] [address] Result Comment: Beth mated Glomerular Filtration Rate [...] Performed By: #### 2 4321-2 ####[facility]ITALNCLIA [id number] [place] [address] [place] Glucose [Mass/Vol] 151 mg/dL High 74-99 [facility] Comment on above: Order Comment: Speci men Type: BLOOD SPECIMENOrdering Facility: [facility] Address: [address] [place] [address] Result Comment: The [place] Diabetes Association (ADA) provides guidance for cutoff [...] Standards of Medical Care in Diabetes 2016, [place] Diabetes Association. Diabetes Care. 2016.39(Suppl 1). Performed By: #### 2 4321-2 ####[facility] MILLWNCLIA [id number] [place] [address] [place] Potassium [Moles/Vol] 4.0 mmol/L Normal 3.7-5.1 [facility] Comment on above: Order Comment: Speci men Type: BLOOD SPECIMENOrdering Facility: [facility] Address: [address] [place] [address] Performed By: #### 2 4321-2 ####[facility]ATIONLIA [id number] [place] [address] [place] Sodium [Moles/Vol] 140 mmol/L Normal 136-144 [facility] Comment on above: Order Comment: Speci men Type: BLOOD SPECIMENOrdering Facility: [facility] Address: [address] [place] [address] Performed By: #### 2 4321-2 ####[facility] HOSPITALWNCLIA [id number] [place] [address] [place] Urea nitrogen [Mass/Vol] 17 mg/dL Normal 9-24 [facility] Comment on above: Order Comment: Speci men Type: BLOOD SPECIMENOrdering Facility: [facility] Address: [address] [place] [address] Performed By: #### 2 4321-2 ####[facility]ITALNCLIA [id number] [place] [address] [place] CBC W Auto Differential pane l (Bld)on 12-17-2023 Basophils (Bld) [#/Vol] 10*3/uL Normal <0.11 [facility] Comment on above: Order Comment: Speci men Type: BLOOD SPECIMENOrdering Facility: [facility] Address: [address] [place] [address] Performed By: #### 5 7021-8 ####[facility] ERA [id number] [place] [address] [place] Basophils/100 WBC (Bld) 0.5 % Normal [facility] Comment on above: Order Comment: Speci men Type: BLOOD SPECIMENOrdering Facility: [facility] Address: [address] [place] [address] Performed By: #### 5 7021-8 ####[facility] HOSPITALANGELICACENTRAL VALLEY [facility] [id number] [place] [address] [place] Differential cell count method Nom (Bld) Auto Normal [facility] Comment on above: Order Comment: Speci men Type: BLOOD SPECIMENOrdering Facility: [facility] Address: [address] [place] [address] Performed By: #### 5 7021-8 ####[facility]ATIONLIA [id number] [place] [address] [place] Eosinophils (Bld) [#/Vol] 0.23 10*3/uL Normal <0.46 [facility] Comment on above: Order Comment: Speci men Type: BLOOD SPECIMENOrdering Facility: [facility] Address: [address] [place] [address] Performed By: #### 5 7021-8 ####[facility] H[facility]ITALNCLIA [id number] [place] [address] [place] Eosinophils/100 WBC (Bld) 5.2 % Normal [facility] Comment on above: Order Comment: Speci men Type: BLOOD SPECIMENOrdering Facility: [facility] Address: [address] [place] [address] Performed By: #### 5 7021-8 ####[facility] [id number] [place] [address] [place] Erythrocyte distribution width (RBC) [Ratio] 20.4 % High 11.5-15.0 [facility] Comment on above: Order Comment: Speci men Type: BLOOD SPECIMENOrdering Facility: [facility] Address: [address] [place] [address] Performed By: #### 5 7021-8 ####[facility] BIENVENIDOHOUSTONNCLIShireen [id number] [place] [address] [place] Hematocrit (Bld) [Volume fraction] 30.6 % Low 39.0-51.0 [facility] Comment on above: Order Comment: Speci men Type: BLOOD SPECIMENOrdering Facility: [facility] Address: [address] [place] [address] Performed By: #### 5 7021-8 ####[facility] HOSPITALANGELICALIA [id number] [place] [address] [place] Hemoglobin (Bld) [Mass/Vol] 9.4 g/dL Low 13.0-17.0 [facility] Comment on above: Order Comment: Speci men Type: BLOOD SPECIMENOrdering Facility: [facility] Address: [address] [place] [address] Performed By: #### 5 7021-8 ####[facility] HOSPITALNCLIA [id number] [place] [address] [place] Immature granulocytes (Bld) [#/Vol] 10*3/uL Normal <0.10 [facility] Comment on above: Order Comment: Speci men Type: BLOOD SPECIMENOrdering Facility: [facility] Address: [address] [place] [address] Performed By: #### 5 7021-8 ####[facility] HOS[facility]ITALNCLIA [id number] [place] [address] [place] Immature granulocytes/100 WBC (Bld) 0.2 % Normal [facility] Comment on above: Order Comment: Speci men Type: BLOOD SPECIMENOrdering Facility: [facility] Address: [address] [place] [address] Performed By: #### 5 7021-8 ####[facility]OUNDATIONLI [id number] [place] [address] [place] Lymphocytes (Bld) [#/Vol] 1.79 10*3/uL Normal 1.00-4.00 [facility] Comment on above: Order Comment: Speci men Type: BLOOD SPECIMENOrdering Facility: [facility] Address: [address] [place] [address] Performed By: #### 5 7021-8 ####[facility] [id number] [place] [address] [place] Lymphocytes/100 WBC (Bld) 40.7 % Normal [facility] Comment on above: Order Comment: Speci men Type: BLOOD SPECIMENOrdering Facility: [facility] Address: [address] [place] [address] Performed By: #### 5 7021-8 ####[facility] [id number] [place] [address] [place] MCH (RBC) [Entitic mass] 24.8 pg Low 26.0-34.0 [facility] Comment on above: Order Comment: Speci men Type: BLOOD SPECIMENOrdering Facility: [facility] Address: [address] [place] [address] Performed By: #### 5 7021-8 ####[facility] HOSPITALNCCENTRAL VALLEY [facility] [id number] [place] [address] [place] MCHC (RBC) [Mass/Vol] 30.7 g/dL Normal 30.5-36.0 [facility] Comment on above: Order Comment: Speci men Type: BLOOD SPECIMENOrdering Facility: [facility] Address: [address] [place] [address] Performed By: #### 5 7021-8 ####[facility] HOSPITALNCCENTRAL VALLEY [facility] [id number] [place] [address] [place] MCV (RBC) [Entitic vol] 80.7 fL Normal 80.0-100.0 [facility] Comment on above: Order Comment: Speci men Type: BLOOD SPECIMENOrdering Facility: [facility] Address: [address] [place] [address] Performed By: #### 5 7021-8 ####[facility]OSPITALNCCENTRAL VALLEY [facility] [id number] [place] [address] [place] Monocytes (Bld) [#/Vol] 0.27 10*3/uL Normal <0.87 [facility] Comment on above: Order Comment: Speci men Type: BLOOD SPECIMENOrdering Facility: [facility] Address: [address] [place] [address] Performed By: #### 5 7021-8 ####[facility] [id number] [place] [address] [place] Monocytes/100 WBC (Bld) 6.1 % Normal [facility] Comment on above: Order Comment: Speci men Type: BLOOD SPECIMENOrdering Facility: [facility] Address: [address] [place] [address] Performed By: #### 5 7021-8 ####[facility] [id number] [place] [address] [place] Neutrophils (Bld) [#/Vol] 2.08 10*3/uL Normal 1.45-7.50 [facility] Comment on above: Order Comment: Speci men Type: BLOOD SPECIMENOrdering Facility: [facility] Address: [address] [place] [address] Performed By: #### 5 7021-8 ####[facility] BIENVENIDOESTHER [id number] [place] [address] [place] Neutrophils/100 WBC (Bld) 47.3 % Normal [facility] Comment on above: Order Comment: Speci men Type: BLOOD SPECIMENOrdering Facility: [facility] Address: [address] [place] [address] Performed By: #### 5 7021-8 ####[facility] HOSPITALANGELICAShireen [id number] [place] [address] [place] Nucleated RBC (Bld) [#/Vol] 10*3/uL Normal <0.01 [facility] Comment on above: Order Comment: Speci men Type: BLOOD SPECIMENOrdering Facility: [facility] Address: [address] [place] [address] Performed By: #### 5 7021-8 ####[facility] HOSPITALNCA [id number] [place] [address] [place] Nucleated RBC/100 WBC (Bld) [Ratio] 0.0 /100 WBC Normal [facility] Comment on above: Order Comment: Speci men Type: BLOOD SPECIMENOrdering Facility: [facility] Address: [address] [place] [address] Performed By: #### 5 7021-8 ####[facility] ERA [id number] [place] [address] [place] Platelet mean volume (Bld) [Entitic vol] 8.4 fL Low 9.0-12.7 [facility] Comment on above: Order Comment: Speci men Type: BLOOD SPECIMENOrdering Facility: [facility] Address: [address] [place] [address] Performed By: #### 5 7021-8 ####[facility] HOSPITALNCLIA [id number] [place] [address] [place] Platelets (Bld) [#/Vol] 203 10*3/uL Normal 150-400 [facility] Comment on above: Order Comment: Speci men Type: BLOOD SPECIMENOrdering Facility: [facility] Address: [address] [place] [address] Performed By: #### 5 7021-8 ####[facility] HOSPITALNCLIA [id number] [place] [address] [place] RBC (Bld) [#/Vol] 3.79 10*6/uL Low 4.20-6.00 [facility] Comment on above: Order Comment: Speci men Type: BLOOD SPECIMENOrdering Facility: [facility] Address: [address] [place] [address] Performed By: #### 5 7021-8 ####[facility] ERA [id number] [place] [address] [place] WBC (Bld) [#/Vol] 4.40 10*3/uL Normal 3.70-11.00 [facility] Comment on above: Order Comment: Speci men Type: BLOOD SPECIMENOrdering Facility: [facility] Address: [address] [place] [address] Performed By: #### 5 7021-8 ####[facility] HOSPITALNCLIA [id number] [place] [address] [place] HGB ELECTROPHORESIS FOR EVAL (LAB ORDER)on 12-17-2023 Hemoglobin A (Bld) [Mass fraction] 97.3 % Normal 96.2-98.0 [facility] Comment on above: Order Comment: Speci men Type: BLOOD SPECIMENOrdering Facility: [facility] Address: [address] [place] [address] Performed By: #### H GBELEV ####[facility] LABIA [id number] [place] [address] [place] Hemoglobin A2 (Bld) [Mass fraction] 2.7 % Normal 2.0-3.1 [facility] Comment on above: Order Comment: Speci men Type: BLOOD SPECIMENOrdering Facility: [facility] Address: [address] [place] [address] Performed By: #### H GBELEV ####[facility] LABIA [id number] [place] [address] [place] Hemoglobin Unsp Elph (Bld) [Mass fraction] No abnormal hemoglobin identified. Normal No abnormal hemoglobin identified. [facility] Comment on above: Order Comment: Speci men Type: BLOOD SPECIMENOrdering Facility: [facility] Address: [address] [place] [address] Performed By: #### H GBELEV ####[facility] [id number] [place] [address] [place] RBC PARAMETERS FOR HB IDon 0 12-17-2023 Erythrocyte distribution width (RBC) [Ratio] 20.5 % High 11.5-15.0 [facility] Comment on above: Order Comment: Speci men Type: BLOOD SPECIMENOrdering Facility: [facility] Address: [address] [place] [address] Performed By: #### L [id number] ####[facility] HOSPITALIA [id number] [place] [address] [place] Hematocrit (Bld) [Volume fraction] 31.3 % Low 39.0-51.0 [facility] Comment on above: Order Comment: Speci men Type: BLOOD SPECIMENOrdering Facility: [facility] Address: [address] [place] [address] Performed By: #### L [id number] ####[facility] LABIA [id number] [place] [address] [place] Hemoglobin (Bld) [Mass/Vol] 9.5 g/dL Low 13.0-17.0 [facility] Comment on above: Order Comment: Speci men Type: BLOOD SPECIMENOrdering Facility: [facility] Address: [address] [place] [address] Performed By: #### L [id number] ####[facility] LABCLIA [id number] [place] [address] [place] MCH (RBC) [Entitic mass] 25.4 pg Low 26.0-34.0 [facility] Comment on above: Order Comment: Speci men Type: BLOOD SPECIMENOrdering Facility: [facility] Address: [address] [place] [address] Performed By: #### L [id number] ####[facility] LABCLIA [id number] [place] [address] [place] MCHC (RBC) [Mass/Vol] 30.4 g/dL Low 30.5-36.0 [facility] Comment on above: Order Comment: Speci men Type: BLOOD SPECIMENOrdering Facility: [facility] Address: [address] [place] [address] Performed By: #### L [id number] ####[facility] LABIA [id number] [place] [address] [place] MCV (RBC) [Entitic vol] 83.7 fL Normal 80.0-100.0 [facility] Comment on above: Order Comment: Speci men Type: BLOOD SPECIMENOrdering Facility: [facility] Address: [address] [place] [address] Performed By: #### L [id number] ####[facility] LABCLIA [id number] [place] [address] [place] RBC (Bld) [#/Vol] 3.74 10*6/uL Low 4.20-6.00 [facility] Comment on above: Order Comment: Speci men Type: BLOOD SPECIMENOrdering Facility: [facility] Address: [address] [place] [address] Performed By: #### L [id number] ####[facility] LABCLIA [id number] [place] [address] [place] CBC W/Diff, Automatedon 09-0 Anisocytosis Ql (Bld) 2+ Normal [facility] Comment on above: Performed By: #### L 500.4050, L100.0100 #### [facility] [address] [place], [address] OVALOCYTE 2+ Normal [facility] Comment on above: Performed By: #### L 500.4050, L100.0100 #### [facility] [address] [place], [address] SCHISTOCYTES 1+ Normal [facility] Comment on above: Performed By: #### L 500.4050, L100.0100 #### [facility] [address] [place], [address] TEAR DROP 1+ Normal [facility] Comment on above: Performed By: #### L 500.4050, L100.0100 #### [facility] [address] [place], [address] PLT EST ADEQUATE Normal ADEQ [facility] Comment on above: Performed By: #### L 500.4050, L100.0100 #### [facility] [address] [place], [address] SMEAR COMMENT SCANNED Normal [facility] Comment on above: Performed By: #### L 500.4050, L100.0100 #### [facility] [address] [place], [address] CNPNon 12-11-2023 CNPN Normal [facility] Metabolic Prof ilon 12-11-2023 Albumin [Mass/Vol] 3.6 g/dL Normal 3.2-5.0 [facility] Comment on above: Performed By: #### L 500.4050, L100.0100 #### [facility] [address] [place], [address] Albumin/Globulin [Mass ratio] 1.1 {ratio} Normal 0.9-2.4 [facility] Comment on above: Performed By: #### L 500.4050, L100.0100 #### [facility] [address] [place], [address] ALK P 89 U/L Normal 45-117 [facility] Comment on above: Performed By: #### L 500.4050, L100.0100 #### [facility] [address] [place], [address] ALT [Catalytic activity/Vol] 36 U/L Normal 16-61 [facility] Comment on above: Performed By: #### L 500.4050, L100.0100 #### [facility] [address] [place], [address] AST [Catalytic activity/Vol] 23 U/L Normal 15-37 [facility] Comment on above: Performed By: #### L 500.4050, L100.0100 #### [facility] [address] [place], [address] Bilirubin [Mass/Vol] 0.50 mg/dL Normal 0.20-1.00 [facility] Comment on above: Result Comment: For patients on eltrombopag therapy, use of Dimension [place] TBIL is not recommended. Performed By: #### L 500.4050, L100.0100 #### [facility] [address] [place], [address] BUN/CRE 23.1 RATIO High 10-20 [facility] Comment on above: Performed By: #### L 500.4050, L100.0100 #### [facility] [address] [place], [address] CA,Total 9.4 mg/dL Normal 8.5-10.1 [facility] Comment on above: Performed By: #### L 500.4050, L100.0100 #### [facility] [address] [place], [address] Chloride [Moles/Vol] 107 mmol/L Normal 98-107 [facility] Comment on above: Performed By: #### L 500.4050, L100.0100 #### [facility] [address] [place], [address] CO2 [Moles/Vol] 27.0 mmol/L Normal 21.0-32.0 [facility] Comment on above: Performed By: #### L 500.4050, L100.0100 #### [facility] [address] [place], [address] Creatinine [Mass/Vol] 0.95 mg/dL Normal 0.70-1.30 [facility] Comment on above: Result Comment: The validity of the calculated GFR GFRAA in patients over 70 years has not been determined. Clinical correlation is essential. Performed By: #### L 500.4050, L100.0100 #### [facility] [address] [place], [address] ECRCL 70.00 ml/min Normal [facility] Comment on above: Performed By: #### L 500.4050, L100.0100 #### [facility] [address] [place], [address] EST GFR - AA 100 mL/min Normal >60 [facility] Comment on above: Result Comment: Afri can Dominican GFR Calc Performed By: #### L 500.4050, L100.0100 #### [facility] [address] [place], [address] GAP 5 Normal 5-15 [facility] Comment on above: Performed By: #### L 500.4050, L100.0100 #### [facility] [address] [place], [address] GFR/1.73 sq M.predicted among non-blacks MDRD (S/P/Bld) [Vol rate/Area] 83 mL/min/{1.73_m2} Normal >60 [facility] Comment on above: Result Comment: Non- GFR Calc Performed By: #### L 500.4050, L100.0100 #### [facility] [address] [place], [address] Globulin (S) [Mass/Vol] 3.4 g/dL Normal 2.2-4.2 [facility] Comment on above: Performed By: #### L 500.4050, L100.0100 #### [facility] [address] [place], [address] Glucose [Mass/Vol] 104 mg/dL Normal 74-106 [facility] Comment on above: Result Comment: Fast ing Glucose result from 100 to 125 mg/dL suggests IMPAIRED HOMEOSTASIS per A.D.A. criteria. Performed By: #### L 500.4050, L100.0100 #### [facility] [address] [place], [address] Potassium [Moles/Vol] 3.8 mmol/L Normal 3.5-5.1 [facility] Comment on above: Performed By: #### L 500.4050, L100.0100 #### [facility] [address] [place], [address] Sodium [Moles/Vol] 139 mmol/L Normal 136-145 [facility] Comment on above: Performed By: #### L 500.4050, L100.0100 #### [facility] [address] [place], [address] T PROT 7.0 g/dL Normal 6.4-8.2 [facility] Comment on above: Performed By: #### L 500.4050, L100.0100 #### [facility] [address] [place], [place], [address] Urea nitrogen [Mass/Vol] 22 mg/dL High 7-18 [facility] Comment on above: Performed By: #### L 500.4050, L100.0100 #### [facility] [address] [place], [address] Emergency Department Summary on 12-11-2023 Emergency Department Summary [facility] Medical Records Department [address] [place] [address] Emergency Department Summary 12/11/23 MR#: [id number] Acct: [id number] Name: ULTHER CASTILLO ALLAN Rep #: [id number] : 1955 68 From: Rubén Liu DO [...] I called (more content not included)... Normal [facility] Lipaseon 12-11-2023 Lipase [Catalytic activity/Vol] 25 U/L Normal 13-75 [facility] Comment on above: Result Comment: Roger abdul note: LIPASE revised reference range effective 22. New Lipase methodology. Expected to produce lower values than the previous assay method. NEW Reference Range: 13 - 75 U/L Performed By: #### L 100.0100, L500.4050, M200.1000, L300.3900, L503.6005, L300.4310 #### [facility] [address] [place], [address] Urinalysis, Completeon 12-10 BACTERIA 0 SEEN Normal None Seen [facility] Comment on above: Order Comment: CLEAN CATCH Performed By: #### L 500.4050, L100.0100 #### [facility] [address] [place], [address] EPI,SQUAMOUS 0 SEEN Normal 0-5 [facility] Comment on above: Order Comment: CLEAN CATCH Performed By: #### L 500.4050, L100.0100 #### [facility] [address] [place], [address] Mucus Ql (Urine sed) 0 SEEN Normal [facility] Comment on above: Order Comment: CLEAN CATCH Performed By: #### L 500.4050, L100.0100 #### [facility] [address] [place], [address] RBC 0 SEEN Normal 0-5 [facility] Comment on above: Order Comment: CLEAN CATCH Performed By: #### L 500.4050, L100.0100 #### [facility] [address] [place], [address] WBC 0 SEEN Normal 0-5 [facility] Comment on above: Order Comment: CLEAN CATCH Performed By: #### L 500.4050, L100.0100 #### [facility] [address] [place], [address] CT ABD/PEL WO IVCONon 2023 CT ABD/PEL WO IVCON Normal [facility] CT Abdomen and Pelvis WO con traston 12-10-2023 * * *Final Report* * * DATE OF EXAM: Dec 10 2023 3:53PM [facility] 0531 - CT ABD/PEL WO IVCON [...] (DLP) for this visit = 489 (accession [id number]), 1008 (accession [id number]) mGy*cm. CT Dose Reduction Employed: Automated exposure control(AEC) and iterative recon COMPARISON: Whole-body nuclear medicine bone scan 08/24/2021, chest radiograph 06/11/2023 RESULT: Rail Car Painter/Sandblaster/topogram: Frontal and lateral images. Bowel gas pattern [...] encroachment lumbar spine DIVISION OF RADIOLOGY Provider, [facility] - 12/10/2023 * * *Final Report* * * DATE OF EXAM: Dec 10 2023 3:53PM [facility] 0531 - CT ABD/PEL WO IVCON [...] (DLP) for this visit = 489 (accession [id number]), 1008 (accession [id number]) mGy*cm. CT Dose Reduction Employed: Automated exposure control(AEC) and iterative recon COMPARISON: Whole-body nuclear medicine bone scan 08/24/2021, chest radiograph 06/11/2023 RESULT: Rail Car Painter/Sandblaster/topogram: Frontal and lateral images. Bowel gas pattern [...] having multilevel central and foraminal degenerative encroachment Tool And Die Supervisor: APRIL Transcribe Date/Time: Dec 10 2023 4:00P Dictated by : MELONIE TEMPLETON MD This examination was interpreted and the report reviewed and electronically signed by: MELONIE TEMPLETON MD on Dec 10 2023 4:46PM EST [facility] Radiology Study observation (narrative) [facility] CT LUMBAR SPINE W IVCONon CT LUMBAR SPINE W IVCON Normal [facility] CT Lumbar spine W contrast I Von 12-10-2023 * * *Final Report* * * DATE OF EXAM: Dec 10 2023 3:55PM [facility] 0012 - CT LUMBAR SPINE W [...] (DLP) for this visit = 489 (accession [id number]), 1008 (accession [id number]) mGy*cm. CT Dose Reduction Employed: Automated exposure control(AEC) and iterative recon COMPARISON: Whole-body nuclear medicine bone scan 08/24/2021, chest radiograph 06/11/2023 RESULT: Rail Car Painter/Sandblaster/topogram: Frontal and lateral images. Bowel gas pattern [...] encroachment lumbar spine DIVISION OF RADIOLOGY [facility]/10/[facility]23 * * *Final Report* * * DATE OF EXAM: Dec 10 2023 3:55PM [facility] 0012 - CT LUMBAR SPINE W [...] (DLP) for this visit = 489 (accession [id number]), 1008 (accession [id number]) mGy*cm. CT Dose Reduction Employed: Automated exposure control(AEC) and iterative recon COMPARISON: Whole-body nuclear medicine bone scan 08/24/2021, chest radiograph 06/11/2023 RESULT: Rail Car Painter/Sandblaster/topogram: Frontal and lateral images. Bowel gas pattern [...] having multilevel central and foraminal degenerative encroachment Tool And Die Supervisor: APRIL Transcribe Date/Time: Dec 10 2023 4:00P Dictated by : MELONIE TEMPLETON MD This examination was interpreted and the report reviewed and electronically signed by: MELONIE TEMPLETON MD on Dec 10 2023 4:46PM EST [facility] Radiology Study observation (narrative) [facility] No Panel Informationon 12-09 IMPRESSION: Abdomen [...] having multilevel central and foraminal degenerative encroachment Tool And Die Supervisor: APRIL Transcribe Date/Time: Dec 10 2023 4:00P Dictated by : MELONIE TEMPLETON MD This examination was interpreted and the report reviewed and electronically signed by: MELONIE TEMPLETON MD on Dec 10 2023 4:46PM [email or web address] DIVISION OF RADIOLOGY No Panel InformationOrdered By: Ccf Provider on 12-10-2023 [facility] CNOVon 12-02-2023 CNOV Normal [facility] Basic metabolic 2000 panelon 11-19-2023 Anion gap [Moles/Vol] 12 mmol/L Normal 8-15 [facility] Comment on above: Order Comment: Speci men Type: BLOOD SPECIMENOrdering Facility: [facility] Address: [address] [place], [place] [address] Performed By: #### 2 4321-2 ####[facility] [id number] [place] [address] [place] Calcium [Mass/Vol] 9.2 mg/dL Normal 8.5-10.2 [facility] Comment on above: Order Comment: Speci men Type: BLOOD SPECIMENOrdering Facility: [facility] Address: [address] [place] [address] Performed By: #### 2 4321-2 ####[facility] [id number] [place] [address] [place] Chloride [Moles/Vol] 102 mmol/L Normal 98-107 [facility] Comment on above: Order Comment: Speci men Type: BLOOD SPECIMENOrdering Facility: [facility] Address: [address] [place] [address] Performed By: #### 2 4321-2 ####[facility] HOSPITALANGELICALIA [id number] [place] [address] [place] CO2 [Moles/Vol] 24 mmol/L Normal 22-30 [facility] Comment on above: Order Comment: Speci men Type: BLOOD SPECIMENOrdering Facility: [facility] Address: [address] [place] [address] Performed By: #### 2 4321-2 ####[facility] HOS[facility]ITALWNCLIA [id number] [place] [address] [place] Creatinine [Mass/Vol] 1.03 mg/dL Normal 0.73-1.22 [facility] Comment on above: Order Comment: Speci men Type: BLOOD SPECIMENOrdering Facility: [facility] Address: [address] [place] [address] Performed By: #### 2 4321-2 ####[facility] [id number] [place] [address] [place] Creatinine and Glomerular filtration rate.predicted panel (S/P/Bld) 78 mL/min/1.73m??? Normal >=60 [facility] Comment on above: Order Comment: [facility] Type: BLOOD SPECIMENOrdering Facility: [facility] Address: [address] [place] [address] Result Comment: Beth mated Glomerular Filtration Rate [...] Performed By: #### 2 4321-2 ####[facility] H[facility]ITALNCLIA [id number] [place] [address] [place] Glucose [Mass/Vol] 101 mg/dL High 74-99 [facility] Comment on above: Order Comment: Speci men Type: BLOOD SPECIMENOrdering Facility: [facility] Address: [address] [id number] Result Comment: The [place] Diabetes Association (ADA) provides guidance for cutoff [...] Standards of Medical Care in Diabetes 2016, [place] [employer] Association. Diabetes Care. 2016.39(Suppl 1). Performed By: #### 2 4321-2 ####[facility] [id number] [place] [address] [place] Potassium [Moles/Vol] 4.0 mmol/L Normal 3.7-5.1 [facility] Comment on above: Order Comment: Speci men Type: BLOOD SPECIMENOrdering Facility: [facility] Address: [address] [place] [address] Performed By: #### 2 4321-2 ####[facility] [id number] [place] [address] [place] Sodium [Moles/Vol] 138 mmol/L Normal 136-144 [facility] Comment on above: Order Comment: Speci men Type: BLOOD SPECIMENOrdering Facility: [facility] Address: [address] [place] [address] Performed By: #### 2 4321-2 ####[facility] [id number] [place] [address] [place] Urea nitrogen [Mass/Vol] 18 mg/dL Normal 9-24 [facility] Comment on above: Order Comment: Speci men Type: BLOOD SPECIMENOrdering Facility: [facility] Address: [address] [place] [address] Performed By: #### 2 4321-2 ####[facility] [id number] [place] [address] [place] CBC W Auto Differential pane l (Bld)on 11-19-2023 Basophils (Bld) [#/Vol] 10*3/uL Normal <0.11 [facility] Comment on above: Order Comment: Speci men Type: BLOOD SPECIMENOrdering Facility: [facility] Address: [address] [place] [address] Performed By: #### 5 7021-8 ####[facility]ATIONLIA [id number] [place] [address] [place] Basophils/100 WBC (Bld) 0.2 % Normal [facility] Comment on above: Order Comment: Speci men Type: BLOOD SPECIMENOrdering Facility: [facility] Address: [address] [place] [address] Performed By: #### 5 7021-8 ####[facility] ERA [id number] [place] [address] [place] Differential cell count method Nom (Bld) Auto Normal [facility] Comment on above: Order Comment: Speci men Type: BLOOD SPECIMENOrdering Facility: [facility] Address: [address] [place] [address] Performed By: #### 5 7021-8 ####[facility] ERA [id number] [place] [address] [place] Eosinophils (Bld) [#/Vol] 0.22 10*3/uL Normal <0.46 [facility] Comment on above: Order Comment: Speci men Type: BLOOD SPECIMENOrdering Facility: [facility] Address: [address] [place] [address] Performed By: #### 5 7021-8 ####[facility]ATIONLIA [id number] [place] [address] [place] Eosinophils/100 WBC (Bld) 3.9 % Normal [facility] Comment on above: Order Comment: Speci men Type: BLOOD SPECIMENOrdering Facility: [facility] Address: [address] [place] [address] Performed By: #### 5 7021-8 ####[facility]ITALNCLIA [id number] [place] [address] [place] Erythrocyte distribution width (RBC) [Ratio] 20.5 % High 11.5-15.0 [facility] Comment on above: Order Comment: Speci men Type: BLOOD SPECIMENOrdering Facility: [facility] Address: [address] [place] [address] Performed By: #### 5 7021-8 ####[facility] [id number] [place] [address] [place] Hematocrit (Bld) [Volume fraction] 31.8 % Low 39.0-51.0 [facility] Comment on above: Order Comment: Speci men Type: BLOOD SPECIMENOrdering Facility: [facility] Address: [address] [place] [address] Performed By: #### 5 7021-8 ####[facility] [id number] [place] [address] [place] Hemoglobin (Bld) [Mass/Vol] 9.7 g/dL Low 13.0-17.0 [facility] Comment on above: Order Comment: Speci men Type: BLOOD SPECIMENOrdering Facility: [facility] Address: [address] [place] [address] Performed By: #### 5 7021-8 ####[facility] [id number] [place] [address] [place] Immature granulocytes (Bld) [#/Vol] 10*3/uL Normal <0.10 [facility] Comment on above: Order Comment: Speci men Type: BLOOD SPECIMENOrdering Facility: [facility] Address: [address] [place] [address] Performed By: #### 5 7021-8 ####[facility] [id number] [place] [address] [place] Immature granulocytes/100 WBC (Bld) 0.4 % Normal [facility] Comment on above: Order Comment: Speci men Type: BLOOD SPECIMENOrdering Facility: [facility] Address: [address] [place] [address] Performed By: #### 5 7021-8 ####[facility]ITALNCCENTR[facility] [id number] [place] [address] [place] Lymphocytes (Bld) [#/Vol] 2.13 10*3/uL Normal 1.00-4.00 [facility] Comment on above: Order Comment: Speci men Type: BLOOD SPECIMENOrdering Facility: [facility] Address: [address] [place] [address] Performed By: #### 5 7021-8 ####[facility] [id number] [place] [address] [place] Lymphocytes/100 WBC (Bld) 37.6 % Normal [facility] Comment on above: Order Comment: Speci men Type: BLOOD SPECIMENOrdering Facility: [facility] Address: [address] [place] [address] Performed By: #### 5 7021-8 ####[facility] HOSPITALNCLI [id number] [place] [address] [place] MCH (RBC) [Entitic mass] 24.7 pg Low 26.0-34.0 [facility] Comment on above: Order Comment: Speci men Type: BLOOD SPECIMENOrdering Facility: [facility] Address: [address] [place] [address] Performed By: #### 5 7021-8 ####[facility] HOS[facility]ITALNCLI [id number] [place] [address] [place] MCHC (RBC) [Mass/Vol] 30.5 g/dL Normal 30.5-36.0 [facility] Comment on above: Order Comment: Speci men Type: BLOOD SPECIMENOrdering Facility: [facility] Address: [address] [place] [address] Performed By: #### 5 7021-8 ####[facility] BIENVENIDOMariannaNCMJ [id number] [place] [address] [place] MCV (RBC) [Entitic vol] 80.9 fL Normal 80.0-100.0 [facility] Comment on above: Order Comment: Speci men Type: BLOOD SPECIMENOrdering Facility: [facility] Address: [address] [place] [address] Performed By: #### 5 7021-8 ####[facility]PITALNCCENTRAL [facility] [id number] [place] [address] [place] Monocytes (Bld) [#/Vol] 0.44 10*3/uL Normal <0.87 [facility] Comment on above: Order Comment: Speci men Type: BLOOD SPECIMENOrdering Facility: [facility] Address: [address] [place] [address] Performed By: #### 5 7021-8 ####[facility]ATIONLIA [id number] [place] [address] [place] Monocytes/100 WBC (Bld) 7.8 % Normal [facility] Comment on above: Order Comment: Speci men Type: BLOOD SPECIMENOrdering Facility: [facility] Address: [address] [place] [address] Performed By: #### 5 7021-8 ####[facility]ATIONLIA [id number] [place] [address] [place] Neutrophils (Bld) [#/Vol] 2.85 10*3/uL Normal 1.45-7.50 [facility] Comment on above: Order Comment: Speci men Type: BLOOD SPECIMENOrdering Facility: [facility] Address: [address] [place] [address] Performed By: #### 5 7021-8 ####[facility] HOSPITALANGELICALIA [id number] [place] [address] [place] Neutrophils/100 WBC (Bld) 50.1 % Normal [facility] Comment on above: Order Comment: Speci men Type: BLOOD SPECIMENOrdering Facility: [facility] Address: [address] [place] [address] Performed By: #### 5 7021-8 ####[facility]ATIONLIA [id number] [place] [address] [place] Nucleated RBC (Bld) [#/Vol] 10*3/uL Normal <0.01 [facility] Comment on above: Order Comment: Speci men Type: BLOOD SPECIMENOrdering Facility: [facility] Address: [address] [place] [address] Performed By: #### 5 7021-8 ####[facility] [id number] [place] [address] [place] Nucleated RBC/100 WBC (Bld) [Ratio] 0.0 /100 WBC Normal [facility] Comment on above: Order Comment: Speci men Type: BLOOD SPECIMENOrdering Facility: [facility] Address: [address] [place] [address] Performed By: #### 5 7021-8 ####[facility] ERA [id number] [place] [address] [place] Platelet mean volume (Bld) [Entitic vol] 8.5 fL Low 9.0-12.7 [facility] Comment on above: Order Comment: Speci men Type: BLOOD SPECIMENOrdering Facility: [facility] Address: [address] [place] [address] Performed By: #### 5 7021-8 ####[facility]PITALNCCENTR[facility] [id number] [place] [id number] [place] Platelets (Bld) [#/Vol] 196 10*3/uL Normal 150-400 [facility] Comment on above: Order Comment: Speci men Type: BLOOD SPECIMENOrdering Facility: [facility] Address: [address] [place] [address] Performed By: #### 5 7021-8 ####[facility] HOSPITALNCKATERINA [id number] [place] [address] [place] RBC (Bld) [#/Vol] 3.93 10*6/uL Low 4.20-6.00 [facility] Comment on above: Order Comment: Speci men Type: BLOOD SPECIMENOrdering Facility: [facility] Address: [address] [place] [address] Performed By: #### 5 7021-8 ####[facility] ERA [id number] [place] [address] [place] WBC (Bld) [#/Vol] 5.67 10*3/uL Normal 3.70-11.00 [facility] Comment on above: Order Comment: Speci men Type: BLOOD SPECIMENOrdering Facility: [facility] Address: [address] [place] [address] Performed By: #### 5 7021-8 ####[facility]ATIONLIA [id number] [place] [address] [place] Ferritin SerPl-mCncon 2023 Ferritin [Mass/Vol] 670.0 ng/mL High 30.3-565.7 [facility] Comment on above: Order Comment: Speci men Type: BLOOD SPECIMENOrdering Facility: [facility] Address: [address] [place] [address] Performed By: #### 2 132-9, 14128-3, 2276-4 ####[facility] LABCLIA [id number] [address] [address] [place] Iron and Iron binding capaci ty panelon 11-19-2023 Iron [Mass/Vol] 171 ug/dL Normal 41-186 [facility] Comment on above: Order Comment: Speci men Type: BLOOD SPECIMENOrdering Facility: [facility] Address: [address] [place] [address] Performed By: #### 2 132-9, 57553-0, 2276-4 ####[facility] LABCLIA [id number] [place] [address] [place] Iron binding capacity [Mass/Vol] 271 ug/dL Normal 232-386 [facility] Comment on above: Order Comment: Speci men Type: BLOOD SPECIMENOrdering Facility: [facility] Address: [address] [place] [address] Performed By: #### 2 132-9, 13406-7, 2276-4 ####[facility] LABCLIA [id number] [place] [address] [place] Iron/TIBC [Molar ratio] 63.1 % High 15.0-57.0 [facility] Comment on above: Order Comment: Speci men Type: BLOOD SPECIMENOrdering Facility: [facility] Address: [address] [place] [address] Performed By: #### 2 132-9, 82356-3, 2276-4 ####[facility] LABIA [id number] [place] [address] [place] PSA SerPl-mCncon 11-19-2023 Prostate specific Ag [Mass/Vol] ng/mL Normal <2.60 [facility] Comment on above: Order Comment: Speci men Type: BLOOD SPECIMENOrdering Facility: [facility] Address: [address] [place] [address] Result Comment: Tota l PSA test methodology used is the Electrochemiluminescence Immunoassay by [employer]. Total PSA values by differing methodologies cannot be interchanged. Performed By: #### 2 857-1 ####[facility] LABCLIA [id number] [place] [address] [place] Vit B12 SerPl-ncon 14-2 024 Cobalamin (Vitamin B12) [Mass/Vol] 662 pg/mL Normal 232-1245 [facility] Comment on above: Order Comment: Speci men Type: BLOOD SPECIMENOrdering Facility: [facility] Address: [address] [place] [address] Performed By: #### 2 132-9, 43952-5, 2276-4 ####[facility] HOSPITALIA [id number] [place] [address] [place] NM CARDIAC PERF STRESS/EXERC ISEon 11-12-2023 NM CARDIAC PERF STRESS/EXERCISE * * *Final Report* * * DATE OF EXAM: Nov 12 2023 10:39AM DOMENIC 0004 - NM CARDIAC PERF STRESS/EXERCISE / PROCEDURE REASON: multiple diagnoses * * * * Physician Interpretation * * * * Stress Quarrying Manager Report: [facility] Date of service: 11/12/2023 9:07:22 AM [...] later. See administered radiotracer and doses below. [facility] Date of service: 11/12/2023 9:07:22 AM [...] Final * * * Stress ECG Report: [facility] Date of service: 11/12/2023 9:07:22 AM Ordering physician: DORCAS CHAMPAGNE child care specialist: Marily Peoples Sales Enablement Manager: Sahara Oswald Interpreting physician: Fannie Madrid MD [...] 160/82 mmHg. The double product achieved was [id number]. Medications: Last Used LIPITOR PREDNISONE FLOMAX CALCIUM [...] +---+---+---+ --- (more content not included)... Normal [facility] Heart Perfusion W multipl e states of exerciseon 11-12-2023 * * *Final Report* * * DATE OF EXAM: Nov 12 2023 10:39AM DOMENIC 0004 - NE CARDIAC PERF STRESS/EXERCISE / PROCEDURE REASON: multiple diagnoses * * * * Physician Interpretation * * * * Stress Quarrying Manager Report: [facility] Date of service: 11/12/2023 9:07:22 AM [...] later. See administered radiotracer and doses below. [facility] Date of service: 11/12/2023 9:07:22 AM [...] Final * * * Stress ECG Report: [facility] Date of service: 11/12/2023 9:07:22 AM Ordering physician: DORCAS CHAMPAGNE child care specialist: Marily Peoples Sales Enablement Manager: Sahara Oswald Interpreting physician: Fannie Madrid MD [...] 160/82 mmHg. The double product achieved was 795[address]. Medications: Last Used LIPITOR PREDNISONE FLOMAX CALCIUM [...] 148 72 13.0 (more content not included)... [facility] Provider, Sabas Mercedez jay [place] - 11/12/2023 * * *Final Report* * * DATE OF EXAM: Nov 12 2023 10:39AM DOMENIC 0004 - NM CARDIAC PERF STRESS/EXERCISE / PROCEDURE REASON: multiple diagnoses * * * * Physician Interpretation * * * * Stress Quarrying Manager Report: [facility] Date of service: 11/12/2023 9:07:22 AM [...] later. See administered radiotracer and doses below. [facility] Date of service: 11/12/2023 9:07:22 AM [...] Final * * * Stress ECG Report: [facility] Date of service: 11/12/2023 9:07:22 AM Ordering physician: DORCAS CHAMPAGNE child care specialist: Marily Peoples Sales Enablement Manager: Sahara Oswald Interpreting physician: Fannie Madrid MD [...] 160/82 mmHg. The double product achieved was [id number]. Medications: Last Used LIPITOR PREDNISONE FLOMAX CALCIUM [...] RPE METS +-----+-- (more content not included)... [facility] Radiology Study observation (narrative) [facility] NM Heart Perfusion W multipl e states of exerciseOrdered By: Ccf Provider on 11-12-2023 [facility] Christian 11-11-2023 CNPN Telephone (CDLBME) -- LUTHER CASTILLO ([id number]) 1955 M Date Time Provider Department 11/11/23 [...] Fully Assessed Reason for Visit: Reminder Call [[id number]] Prescriptions as of 11/11/2023 - predniSONE (DELTASONE) [...] Encounter Status:Closed by SAHARA OSWALD on 11/11/23 [facility] Basic metabolic 2000 panelon 10-22-2023 Anion gap [Moles/Vol] 7 mmol/L Low 8-15 [facility] Comment on above: Order Comment: Speci men Type: BLOOD SPECIMENOrdering Facility: [facility] Address: [address] [place] [address] [place] [address] Performed By: #### 2 4321-2 ####[facility] SMILEY HOANGCINDY [id number] [place] [address] [place] Calcium [Mass/Vol] 8.8 mg/dL Normal 8.5-10.2 [facility] Comment on above: Order Comment: Speci men Type: BLOOD SPECIMENOrdering Facility: [facility] Address: [address] [place] [address] Performed By: #### 2 4321-2 ####[facility] BIENVENIDOHOUSTONNCLIA [id number] [place] [address] [place] Chloride [Moles/Vol] 105 mmol/L Normal 98-107 [facility] Comment on above: Order Comment: Speci men Type: BLOOD SPECIMENOrdering Facility: [facility] Address: [address] [place] [address] Performed By: #### 2 4321-2 ####[facility]ITALNCLIA [id number] [place] [address] [place] CO2 [Moles/Vol] 26 mmol/L Normal 22-30 [facility] Comment on above: Order Comment: Speci men Type: BLOOD SPECIMENOrdering Facility: [facility] Address: [address] [place] [address] Performed By: #### 2 4321-2 ####[facility] HOS[facility]ITALNCLIA [id number] [place] [address] [place] Creatinine [Mass/Vol] 0.97 mg/dL Normal 0.73-1.22 [facility] Comment on above: Order Comment: Speci men Type: BLOOD SPECIMENOrdering Facility: [facility] Address: [address] [place] [address] Performed By: #### 2 4321-2 ####[facility] HOSPITALNCLIA [id number] [place] [address] [place] Creatinine and Glomerular filtration rate.predicted panel (S/P/Bld) 84 mL/min/1.73m??? Normal >=60 [facility] Comment on above: Order Comment: Speci men Type: BLOOD SPECIMENOrdering Facility: [facility] Address: [address] [place] [address] Result Comment: Beth mated Glomerular Filtration Rate [...] actual GFR. Performed By: #### 2 4321-2 ####[facility] [id number] [place] [address] [place] Glucose [Mass/Vol] 94 mg/dL Normal 74-99 [facility] Comment on above: Order Comment: Bassam hong Type: BLOOD SPECIMENOrdering Facility: [facility] Address: [address] [place] [address] Result Comment: The [place] Diabetes Association (ADA) provides guidance for cutoff [...] Standards of Medical Care in Diabetes 2016, [place] Diabetes Association. Diabetes Care. 2016.39(Suppl 1). Performed By: #### 2 4321-2 ####[facility] [id number] [place] [address] [place] Potassium [Moles/Vol] 3.7 mmol/L Normal 3.7-5.1 [facility] Comment on above: Order Comment: Bassam hong Type: BLOOD SPECIMENOrdering Facility: [facility] Address: [address] [place] [address] Performed By: #### 2 4321-2 ####[facility] [id number] [place] [address] [place] Sodium [Moles/Vol] 138 mmol/L Normal 136-144 [facility] Comment on above: Order Comment: Speci men Type: BLOOD SPECIMENOrdering Facility: [facility] Address: [address] [place] [address] Performed By: #### 2 4321-2 ####[facility] HOSPITALESTHER [id number] [place] [address] [place] Urea nitrogen [Mass/Vol] 27 mg/dL High 9-24 [facility] Comment on above: Order Comment: Speci men Type: BLOOD SPECIMENOrdering Facility: [facility] Address: [address] [place] [address] Performed By: #### 2 4321-2 ####[facility] CHAPELANDREANCLIShireen [id number] [place] [address] [place] CBC W Auto Differential pane l (Bld)on 10-22-2023 Basophils (Bld) [#/Vol] 10*3/uL Normal <0.11 [facility] Comment on above: Order Comment: Speci men Type: BLOOD SPECIMENOrdering Facility: [facility] Address: [address] [place] [address] Performed By: #### 5 7021-8 ####[facility] HOSPITALDONA [id number] [place] [address] [place] Basophils/100 WBC (Bld) 0.2 % Normal [facility] Comment on above: Order Comment: Speci men Type: BLOOD SPECIMENOrdering Facility: [facility] Address: [address] [place] [address] Performed By: #### 5 7021-8 ####[facility] HOSPITALNCLIA [id number] [place] [address] [place] Differential cell count method Nom (Bld) Auto Normal [facility] Comment on above: Order Comment: Speci men Type: BLOOD SPECIMENOrdering Facility: [facility] Address: [address] [place] [address] Performed By: #### 5 7021-8 ####[facility] BIENVENIDOESTHER [id number] [place] [address] [place] Eosinophils (Bld) [#/Vol] 0.21 10*3/uL Normal <0.46 [facility] Comment on above: Order Comment: Speci men Type: BLOOD SPECIMENOrdering Facility: [facility] Address: [address] [place] [address] Performed By: #### 5 7021-8 ####[facility] HOSPITALANGELICAShireen [id number] [place] [address] [place] Eosinophils/100 WBC (Bld) 4.3 % Normal [facility] Comment on above: Order Comment: Speci men Type: BLOOD SPECIMENOrdering Facility: [facility] Address: [address] [place] [address] Performed By: #### 5 7021-8 ####[facility] [id number] [place] [address] [place] Erythrocyte distribution width (RBC) [Ratio] 20.2 % High 11.5-15.0 [facility] Comment on above: Order Comment: Speci men Type: BLOOD SPECIMENOrdering Facility: [facility] Address: [address] [place] [address] Performed By: #### 5 7021-8 ####[facility] ERA [id number] [place] [address] [place] Hematocrit (Bld) [Volume fraction] 29.5 % Low 39.0-51.0 [facility] Comment on above: Order Comment: Speci men Type: BLOOD SPECIMENOrdering Facility: [facility] Address: [address] [place] [address] Performed By: #### 5 7021-8 ####[facility] BIENVENIDOWNCLIA [id number] [place] [address] [place] Hemoglobin (Bld) [Mass/Vol] 9.1 g/dL Low 13.0-17.0 [facility] Comment on above: Order Comment: Speci men Type: BLOOD SPECIMENOrdering Facility: [facility] Address: [address] [place] [address] Performed By: #### 5 7021-8 ####[facility]ATIONLIA [id number] [place] [address] [place] Immature granulocytes (Bld) [#/Vol] 10*3/uL Normal <0.10 [facility] Comment on above: Order Comment: Speci men Type: BLOOD SPECIMENOrdering Facility: [facility] Address: [address] [place] [address] Performed By: #### 5 7021-8 ####[facility]ATIONLIA [id number] [place] [address] [place] Immature granulocytes/100 WBC (Bld) 0.4 % Normal [facility] Comment on above: Order Comment: Speci men Type: BLOOD SPECIMENOrdering Facility: [facility] Address: [address] [place] [address] Performed By: #### 5 7021-8 ####[facility]ATIONLIA [id number] [place] [address] [place] Lymphocytes (Bld) [#/Vol] 2.01 10*3/uL Normal 1.00-4.00 [facility] Comment on above: Order Comment: Speci men Type: BLOOD SPECIMENOrdering Facility: [facility] Address: [address] [place] [address] Performed By: #### 5 7021-8 ####[facility] HOSPITALNCLIA [id number] [place] [address] [place] Lymphocytes/100 WBC (Bld) 40.9 % Normal [facility] Comment on above: Order Comment: Speci men Type: BLOOD SPECIMENOrdering Facility: [facility] Address: [address] [place] [address] Performed By: #### 5 7021-8 ####[facility] [id number] [place] [address] [place] MCH (RBC) [Entitic mass] 24.7 pg Low 26.0-34.0 [facility] Comment on above: Order Comment: Speci men Type: BLOOD SPECIMENOrdering Facility: [facility] Address: [address] [place] [address] Performed By: #### 5 7021-8 ####[facility] HOSPITALNCCENTRAL VALLEY [facility] [id number] [place] [address] [place] MCHC (RBC) [Mass/Vol] 30.8 g/dL Normal 30.5-36.0 [facility] Comment on above: Order Comment: Speci men Type: BLOOD SPECIMENOrdering Facility: [facility] Address: [address] [place] [address] Performed By: #### 5 7021-8 ####[facility] HOSPITALNCLIA [id number] [place] [address] [place] MCV (RBC) [Entitic vol] 79.9 fL Low 80.0-100.0 [facility] Comment on above: Order Comment: Speci men Type: BLOOD SPECIMENOrdering Facility: [facility] Address: [address] [place] [address] Performed By: #### 5 7021-8 ####[facility] HOSPITALNCCENTRAL VALLEY [facility] [id number] [place] [address] [place] Monocytes (Bld) [#/Vol] 0.35 10*3/uL Normal <0.87 [facility] Comment on above: Order Comment: Speci men Type: BLOOD SPECIMENOrdering Facility: [facility] Address: [address] [place] [address] Performed By: #### 5 7021-8 ####[facility] HOSPITALHEAVENA [id number] [place] [address] [place] Monocytes/100 WBC (Bld) 7.1 % Normal [facility] Comment on above: Order Comment: Speci men Type: BLOOD SPECIMENOrdering Facility: [facility] Address: [address] [place] [address] Performed By: #### 5 7021-8 ####[facility] HOSPITALNCCENTRAL VALLEY [facility] [id number] [place] [address] [place] Neutrophils (Bld) [#/Vol] 2.31 10*3/uL Normal 1.45-7.50 [facility] Comment on above: Order Comment: Speci men Type: BLOOD SPECIMENOrdering Facility: [facility] Address: [address] [place] [address] Performed By: #### 5 7021-8 ####[facility] ERA [id number] [place] [address] [place] Neutrophils/100 WBC (Bld) 47.1 % Normal [facility] Comment on above: Order Comment: Speci men Type: BLOOD SPECIMENOrdering Facility: [facility] Address: [address] [place] [address] Performed By: #### 5 7021-8 ####[facility]OUNDATIONLIA [id number] [place] [address] [place] Nucleated RBC (Bld) [#/Vol] 10*3/uL Normal <0.01 [facility] Comment on above: Order Comment: Speci men Type: BLOOD SPECIMENOrdering Facility: [facility] Address: [address] [place] [address] Performed By: #### 5 7021-8 ####[facility] BIENVENIDOCRUZLIA [id number] [place] [address] [place] Nucleated RBC/100 WBC (Bld) [Ratio] 0.0 /100 WBC Normal [facility] Comment on above: Order Comment: Speci men Type: BLOOD SPECIMENOrdering Facility: [facility] Address: [address] [place] [address] Performed By: #### 5 7021-8 ####[facility] HOSPITALHEAVENA [id number] [place] [address] [place] Platelet mean volume (Bld) [Entitic vol] 8.6 fL Low 9.0-12.7 [facility] Comment on above: Order Comment: Speci men Type: BLOOD SPECIMENOrdering Facility: [facility] Address: [address] [place] [address] Performed By: #### 5 7021-8 ####[facility] ERA [id number] [place] [address] [place] Platelets (Bld) [#/Vol] 178 10*3/uL Normal 150-400 [facility] Comment on above: Order Comment: Speci men Type: BLOOD SPECIMENOrdering Facility: [facility] Address: [address] [place] [address] Performed By: #### 5 7021-8 ####[facility]OUNDATIONLIA [id number] [place] [address] [place] RBC (Bld) [#/Vol] 3.69 10*6/uL Low 4.20-6.00 [facility] Comment on above: Order Comment: Speci men Type: BLOOD SPECIMENOrdering Facility: [facility] Address: [address] [place] [address] Performed By: #### 5 7021-8 ####[facility] HOSPITALNCCENTRAL [facility] [id number] [place] [address] [place] WBC (Bld) [#/Vol] 4.91 10*3/uL Normal 3.70-11.00 [facility] Comment on above: Order Comment: Speci men Type: BLOOD SPECIMENOrdering Facility: [facility] Address: [address] [place] [address] Performed By: #### 5 7021-8 ####[facility] SMILEY [facility]OSPITALA [id number] [place] [address] [place] CNOVSPon 10-22-2023 CNOVSP Normal [facility] PSA SerPl-mCncon 10-22-2023 Prostate specific Ag [Mass/Vol] ng/mL Normal <2.60 [facility] Comment on above: Order Comment: Speci men Type: BLOOD SPECIMENOrdering Facility: [facility] Address: [address] [place] [address] Result Comment: Tota l PSA test methodology used is the Electrochemiluminescence Immunoassay by [employer]. Total PSA values by differing methodologies cannot be interchanged. Performed By: #### 2 857-1 ####[facility] LABCLIA [id number] [place] [address] [place] CNOVon 10-16-2023 CNOV Office Visit (JEFF ) -- LUTHER CASTILLO ([id number]) 1955 M Date Time Provider Department 10/16/23 2:20 PM DORCAS [place] During your visit today, we recorded the following information about you: Pulse Blood pressure Weight Height 98/minute 118/64 70 kg 1.702 m Dorcas Champagne DO 10/16/2023 5:25 PM [facility] SECTION OF [facility] OUTPATIENT VISIT DATE October 16, 2023 PRIMARY CARE PHYSICIAN: Arsalan Ocampo [address] [place] [address] HISTORY OF PRESENT ILLNESS: Mr. Castillo is [...] syncope and light-heade (more content not included)... Normal [facility] 10-16-2023 [facility] Telephone (Caringo) -- LUTHER CASTILLO ([id number]) 1955 M Date Time Provider Department 10/16/23 [...] Encounter Status:Closed by GABI DOUGLAS on 10/16/23 Normal [facility] EXERCISE STRESS ECG (WITHOUT IMAGING)on 06-17-2023 EXERCISE STRESS ECG (WITHOUT IMAGING) Stress Quarrying Manager Report: Exercise Stress ECG (without Imaging) [facility] Date of service: 06/17/2023 10:22:25 AM Supervising physician: Lucian Alvarez MD PATIENT: Name: MR. LUTHER CASTILLO Age: 68 years Gender: M The supervising physician was in the department and immediately available. Final Stress ECG Report: Exercise Stress ECG (without Imaging) [facility] Date of service: 06/17/2023 10:22:25 AM Ordering physician: CATHERINE PERAZA child care specialist: Julieta Zhang Sales Enablement Manager: Toma Lyles Interpreting physician: Lucian Alvarez MD [...] 140/60 mmHg. The double product achieved was [address]. Medications: Last Used PREDNISONE LIPITOR FLOMAX TAGAMET [...] (HRR): 11 bpm Rate Pressure Product (RPP): 50720 Vega Treadmill Score: 8.0 Stress Exercise Observations: [...] equation for determining estimated MET values for [facility] stress tests changed. Comparison of test results before and after that date may show a change in estimated MET values for peak/max exercise despite a test duration that is similar in length. The validity of the new FRIEND equation for exercise METS is endorsed by the [place] Heart Association. Miky P, Jose LA, Ivania R, Reagan J, Chepe J. New Generalized Equation for Predicting Maximal Oxygen Uptake (from the Fitness Registry and the Importance of Exercise National Database). The [place] Journal of Cardiology. 2017;120(4):688-692). Final CC [employer] Image : [id number] See Link below for Image Normal [facility] Christian 06-16-2023 [facility] Telephone (CDLBME) -- LUTHER CASTILLO ([id number]) 1955 M Date Time Provider Department 06/16/23 SAHARA OSWALD CDLBME During your visit today, we recorded the following information about you: Sahara Oswald RN 06/16/2023 2:19 PM Signed Spoke with patient regarding reminder for stress test tomorrow and given instructions. Allergies As of Date: 06/16/2023 Noted Allergy Reaction RAGWEED POLLEN 06/11/2023 14 - Other: See Comments Comments: Watering/itchy eyes Date Reviewed: 06/11/2023 Reviewed by: Jessy Flores LPN - Fully Assessed Reason for Visit: Reminder Call [[id number]] Prescriptions as of 06/16/2023 - predniSONE (DELTASONE) [...] Encounter Status:Closed by SAHARA OSWALD on 06/16/23 [facility] XR Chest PA and Lateralon IMPRESSION: Bibasilar atelectasis. Tool And Die Supervisor: APRIL Transcribe Date/Time: Jun 11 2023 4:47P Dictated by : NIKKI EVANGELISTA MD This examination was interpreted and the report reviewed and electronically signed by: NIKKI EVANGELISTA MD on Jun 11 2023 4:47PM [facility] [[email or web address] DIVISION OF RADIOLOGY * * *Final Report* [...] in the spine. DIVISION OF RADIOLOGY Provider, Sabas Osborne - 06/11/2023 * * *Final Report* * [...] in the spine. IMPRESSION IMPRESSION: Bibasilar atelectasis. Tool And Die Supervisor: APRIL Transcribe Date/Time: Jun 11 2023 4:47P Dictated by : NIKKI EVANGELISTA MD This examination was interpreted and the report reviewed and electronically signed by: NIKKI EVANGELISTA MD on Jun 11 2023 4:47PM EST [facility] Radiology Study observation (narrative) [facility] XR Chest PA and LateralOrder ed By: Ccf Provider on 06-11-2023 [facility] Basic metabolic 2000 panelon 06-05-2023 Anion gap [Moles/Vol] 7 mmol/L Low 9 - 18 mmol/L [facility] Calcium [Mass/Vol] 8.7 mg/dL 8.5 - 10. 2 mg/dL [facility] Chloride [Moles/Vol] 102 mmol/L 97 - 10 5 mmol/L [facility] CO2 [Moles/Vol] 28 mmol/L 22 - 30 mmol/L [facility] Creatinine [Mass/Vol] 1.05 mg/dL 0.73 - 1.22 mg/dL [facility] Estimated Glomerular Filtration Rate 76 mL/min/1.73m >=60 mL/min/1.73 m [facility] Glucose [Mass/Vol] 93 mg/dL 74 - 99 mg/dL [facility] Potassium [Moles/Vol] 3.7 mmol/L 3.7 - 5.1 mmol/L [facility] Sodium [Moles/Vol] 137 mmol/L 136 - 144 mmol/L [facility] Urea nitrogen [Mass/Vol] 20 mg/dL 9 - 24 mg/dL [facility] XR FINGER 3RD DIGIT 3 VIEWS [...] 09/23/2022 3:18:15 PM Ordering Provider: ALEXIS HEATH [facility] CNOVon 04-26-2022 CNOV Office Visit (AKURFL ) -- LUTHER CASTILLO ([id number]) 1955 M Date Time Provider Department 04/26/22 10:45 AM SP MCKEON During your visit today, we recorded the following information about you: Respiration Weight Height 18/minute 69.4 kg 1.702 m Sp Mckeon DO 05/07/2022 2:46 PM Signed [facility] [place] [facility] UROLOGY LOCATION: [address] [place] [address] ESTABLISHED PATIENT PATIENT INFO: Luther Castillo 67 [...] confirmed metastatic disease. Biopsy of prostate confirmed Vineland 7, prostate cancer. He started androgen deprivation [...] (10 mm tumor length). - Percentage of Vineland pattern 4 = 90%. - Expansile cribriform morphology is present. C. PROSTATE, BIOPSY, RIGHT APEX: Prostatic adenocarcinoma, Vineland score 3+4=7 (Grade group 2), involving 35% of one core (3 mm tumor length). - Percentage of Rasheed pattern 4 = 5%. - Cribriform morphology is absent. D. PROSTATE, BIOPSY, RIGHT LATERAL BASE: High-grade prostatic intraepithelial neoplasia. E. PROSTATE, BIOPSY, RIGHT LATERAL MID: Prostatic adenocarcinoma, Rasheed score 3+4=7 (Grade group 2), involving 85% of one core (10 mm tumor length). - Percentage of Vineland pattern 4 = 10%. - Definitive cribriform morphology is absent. F. PROSTATE, BIOPSY, RIGHT LATERAL APEX: Prostatic adenocarcinoma, Vineland score 3+4=7 (Grade group 2), involving 50% of one core (6.5 mm tumor length). - Percentage of Vineland pattern 4 = 5%. - Cribriform morphology [...] 50.5 Lymph% (%) Date Value 02/12/2022 38.7 Bullock% (%) Date Value 02/12/2022 8.2 Eosin% (%) Date Value 05/28/2021 1.5 Baso% (%) Date Value 02/12/2022 0.5 Abs Neut (k/uL) Date Value 02/12/2022 2.89 Abs Bullock (k/uL) Date Value 02/12/2022 (more content not included)... Normal [facility] SURGICAL PATHOLOGYon 022 Addendum This addendum is iss ued to report the results of immunohistochemical stains. The original diagnoses remain unchanged. Immunohistochemical stain for Helicobacter pylori performed on the gastric biopsy is negative (Block A1). Laboratory Developed Test (LDT) Disclaimer: Performance characteristics of immunohistochemical, immunofluorescent and chromogenic in-situ hybridization tests have been determined by the performing laboratory within [facility] s [facility] Pathology and Laboratory Medicine [facility] ([facility], [facility], [facility] or [facility]) in a manner consistent with CLIA requirements. One or more of these tests have not been cleared or approved by the FDA. RT-PLMI is regulated under CLIA as qualified to perform high-complexity testing. These tests are used for clinical purposes. They should not be regarded as investigational or for research. Positive and negative controls stain appropriately. [facility] Case Report Surgical Pathology R eport Case: [id number] Authorizing Provider: Lyn Mcgowan MD Collected: 02/27/2022 09:19 AM Ordering Location: Ambulatory Surgery Received: 02/27/2022 04:29 PM Pathologist: Tate Kirk MD Specimens: A) - ANTRUM (STOMACH) BIOPSY, Antral bx for H/H B) - ESOPHAGOGASTRIC JUNCTION BIOPSY [facility] FINAL DIAGNOSIS A. Stomach, antrum, biopsy: - Chronic inactive antral gastritis. - Immunohistochemistry for Helicobacter pylori will be reported in an addendum. B. Esophagogastric junction, biopsy: - Squamous epithelium with features of reflux. - Inflamed gastric cardia-type mucosa. - No evidence of intestinal metaplasia or dysplasia. [facility] Gross Description A. ANTRUM (STOMACH) BIOPSY Received in formalin is one piece of boyer, soft tissue measuring 0.6 x 0.3 x 0.1 cm. Totally submitted in one cassette. B. ESOPHAGOGASTRIC JUNCTION BIOPSY Received in formalin are two pieces of boyer, soft tissue aggregating to 0.7 x 0.2 x 0.1 cm. Totally submitted in one cassette. Gross examination performed at [facility], [address] [place] [address] FFS 02/28/2022 12:17 AM [facility] Performing Lab Diagnostic interpret ation performed at [facility], [address] [place] [address] CLIA# [id number] R D Intern: Misha Prater M.D. [facility] COLONOSCOPY DIAGNOSTICon [facility] EGD DIAGNOSTICon 02-27-2022 [facility] CNOVon 09-05-2021 CNOV Office Visit (AKVIRGIL ) -- LUTHER CASTILLO ([id number]) 1955 M Date Time Provider Department 09/05/21 10:15 AM SP MCKEON During your visit today, we recorded the following information about you: Blood pressure Weight Height 113/60 69.4 kg 1.727 m Sp Mckeon DO 09/05/2021 10:48 AM Signed ?? [facility] UROLOGY LOCATION: [address] [place] [address] ESTABLISHED PATIENT PATIENT INFO: Luther Castillo 66 [...] scan subsequently confirmed?metastatic disease.???Biopsy of prostate confirmed Rasheed 7,?prostate cancer. ? He started androgen deprivation [...] B. PROSTATE, BIOPSY, RIGHT MID: Prostatic adenocarcinoma, Vineland score 4+3=7 (Grade group 3), involving 90% of one core (10 mm tumor length). - Percentage of Vineland pattern 4 = 90%. - Expansile cribriform morphology is present. ? C. PROSTATE, BIOPSY, RIGHT APEX: Prostatic adenocarcinoma, Vineland score 3+4=7 (Grade group 2), involving 35% of one core (3 mm tumor length). - Percentage of Vineland pattern 4 = 5%. - Cribriform morphology is absent. ? D. PROSTATE, BIOPSY, RIGHT LATERAL BASE: High-grade prostatic intraepithelial neoplasia. ? E. PROSTATE, BIOPSY, RIGHT LATERAL MID: Prostatic adenocarcinoma, Rasheed score 3+4=7 (Grade group 2), involving 85% of one core (10 mm tumor length). - Percentage of Vineland pattern 4 = 10%. - Definitive cribriform morphology is absent. ? F. PROSTATE, BIOPSY, RIGHT LATERAL APEX: Prostatic adenocarcinoma, Vineland score 3+4=7 (Grade group 2), involving 50% of one core (6.5 mm tumor length). - Percentage of Vineland pattern 4 = 5%. - Cribriform morphology [...] 77.7 Lymph% (%) Date Value 08/24/2021 14.8 Bullock% (%) Date Value 08/24/2021 6.1 Eosin% (%) Date Value 05/28/2021 1.5 Baso% (%) Date Value 08/24/2021 0.1 Abs Neut (k/uL) Date Value 08/06 (more content not included)... Normal [facility] NM BONE WHOLE BODYon 022 [facility] CNOVon 01-03-2017 CNOV Office Visit (AKURFL) JONATHANLUTHER Polanco ([id number]) 1955 MDate Time Provider Department01/03/17 9:00 AM DORCAS WATERS During your visit today, we recorded the following information about you: Blood pressure Weight Height 114/54 70.3 kg 1.727 mGregmanju Waters MD 01/03/2017 9:31 AM SignedNEW PATIENT HISTORY AND PHYSICAL EXAMPRIMARY CARE PHYSICIAN: AMY Raya FOR CONSULT: Elevated PSA and poor urinary streamREFERRING PHYSICIAN: Carl Vicente, [facility] COMPLAINT: New Patient and PSA (Elevated )HISTORY OF PRESENT ILLNESS: Luther Polanco Jonathan is a 61 year old male whopresents [...] (no units) Date Value 01/03/2017 neg Specific [place], Ur (no units) Date Value 01/03/2017 1.010 [...] Calcium (mg/dL) Date Value 12/16/2016 9.3 Specific [place], Ur (no units) Date Value 01/03/2017 1.010 Leukocytes (no units) Date Value 01/03/2017 neg No results found for: URCULMEDICATIONS:FLUARIX QUAD [id number], PF, 60 mcg (15 mcg x 4)/0.5 [...] debridement, biceps tenotomy- COLONOSCOP W/ OR W/O [facility] SPEC 10/2006 Colonoscopy- COLONOSCOP W/ OR W/O [facility] SPEC 03/06/2012 Colonoscopy- EGD W/O OR W/BRUSH/WASH [...] Wt 70.3 kg (155 lb) BMI 23.57 kg/m8Huywkxwg ExamConstitutional: He is oriented to person, place, [...] follow-up in 4-6 weeksReferring Provider: CARL VICENTE [[id number]]Allergies As of Date: 01/03/2017 Noted Allergy Reactionenvirornmental [...] malignant neoplasm of prostate [Z80.42]Order(s):UA DIP B/O [[id number]] Order #: [id number] tamsulosin ER (FLOMAX) 0.4 mg fx57Ucuh 1 capsule by mouth once daily.Disp: 30 capsuleRfl: 2Prescriptions as of 01/03/2017 Sig: FLUARIX QUAD [id number] (PF) 6* GAVILYTE-C 240 GRAM-22.72 GRA* OMEPRAZOLE [...] 01/03/2017 9:13 AM >> CARLEY CHRISTENSEN MA Jan 03, 2017 9:13 AM Not takingProblem [...] 01/31/2017).Follow-up and Disposition History RecordedLetter TextEncounter Number: [id number] Status:Closed by DORCAS WATERS MD on 01/03/17 Normal [facility] PROGRESSon 01-03-2017 PROGRESS HNO ID: [id number] thor: Dorcas WatersService: (none)Author Type: PhysicianType: Progress NotesFiled: 01/03/2017 9:31 AMNote Text:NEW PATIENT HISTORY AND PHYSICAL EXAMPRIMARY CARE PHYSICIAN: Carl Vicente MDREASON FOR CONSULT: Elevated PSA and poor urinary streamREFERRING PHYSICIAN: Carl Vicente, [facility] COMPLAINT: New Patient and PSA (Elevated [...] (no units) Date Value 01/03/2017 neg Specific [place], Ur (no units) Date Value 01/03/2017 1.010 [...] Calcium (mg/dL) Date Value 12/16/2016 9.3 Specific [place], Ur (no units) Date Value 01/03/2017 1.010 Leukocytes (no units) Date Value 01/03/2017 neg No results found for: URCULMEDICATIONS:FLUARIX QUAD [id number], PF, 60 mcg (15 mcg x 4)/0.5 [...] debridement, biceps tenotomy- COLONOSCOP W/ OR W/O [facility] SPEC 10/2006 Colonoscopy- COLONOSCOP W/ OR W/O [facility] SPEC 03/06/2012 Colonoscopy- EGD W/O OR W/BRUSH/WASH [...] Number of children: 3Occupational HistoryOccupation Employer Comment [employer] 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 No specific exerciseregimenPHYSICAL EXAMINATIONBP 114/54 Ht 172.7 cm (5' 8) Wt 70.3 kg (155 lb) BMI 23.57 kg/l8Hofhfolk ExamConstitutional: He is oriented to person, place, and time. He appearswell-developed and well-nourished.Pulmonary/C hest: No respiratory distress.Abdominal: Soft. Normal appearance and bowel sounds are normal. Heexhibits no distension. There is no tenderness.Genitourinary: Testes normal and penis normal. Circumcised.Genitourinary Comments: [place] 30-40 g enlarged benign feeling.Symmetric without nodules [...] 4-6 weeks5. Progress note to primary careGregory Enma Waters MD01/03/2017 [facility] Vital Signs Date Time Vital Sign Value Performing Clinician Faci lity 10-14-2024 09:37-0400 Body height 167.[address] López Ocampo MD Work Phone: [facility] 10-14-2024 09:37-0400 Body mass index (BMI) [Ratio] 22.6 kg/m2 Dr. López Ocampo MD Work Phone: [facility] 10-14-2024 09:37-0400 Body temperature 96.4 [degF] Dr. López Ocampo MD Work Phone: [facility] 10-14-2024 09:37-0400 Body weight 63.[address] López Ocampo MD Work Phone: [facility] 10-14-2024 09:37-0400 Diastolic blood pressure 74 mm[Hg] Dr. López Ocampo MD Work Phone: [facility] 10-14-2024 09:37-0400 Heart rate 92 /min Dr. López Ocampo MD Work Phone: [facility] 10-14-2024 09:37-0400 Respiratory rate 16 /min Dr. López Ocampo MD Work Phone: [facility] 10-14-2024 09:37-0400 Systolic blood pressure 121 mm[Hg] Dr. López Ocampo MD Work Phone: [facility] 10-13-2024 09:32-0400 Body height 170.2 cm Felix Al MD Work Phone: [facility] 10-13-2024 09:32-0400 Body mass index (BMI) [Ratio] 21.99 kg/m2 Felix Al MD Work Phone: [facility] 10-13-2024 09:32-0400 Body temperature 97.81 [degF] Felix Al MD Work Phone: [facility] 10-13-2024 09:32-0400 Body weight 63.69 kg Felix Al MD Work Phone: [facility] 10-13-2024 09:32-0400 Diastolic blood pressure 64 mm[Hg] Felix Al MD Work Phone: [facility] 10-13-2024 09:32-0400 Heart rate 122 /min Felix Al MD Work Phone: [facility] 10-13-2024 09:32-0400 SaO2% (BldA) [Mass fraction] 99 % Felix Al MD Work Phone: [facility] 10-13-2024 09:32-0400 Systolic blood pressure 110 mm[Hg] Felix Al MD Work Phone: [facility] 09-22-2024 14:32-0400 Body temperature 97.9 [degF] Dr. López Ocampo MD Work Phone: [facility] 09-22-2024 14:32-0400 Diastolic blood pressure 71 mm[Hg] Dr. López Ocampo MD Work Phone: [facility] 09-22-2024 14:32-0400 Heart rate 83 /min Dr. López Ocampo MD Work Phone: [facility] 09-22-2024 14:32-0400 Respiratory rate 18 /min Dr. López Ocampo MD Work Phone: 1(786)858-745932 [place] [address] 09-22-2024 14:32-0400 SaO2% (BldA) [Mass fraction] 99 % Dr. López Ocampo MD Work Phone: 6(136)173-441532 [place] [address] 09-22-2024 14:32-0400 Systolic blood pressure 123 mm[Hg] Dr. López Ocampo MD Work Phone: 5(431)352-381432 [place] [address] 09-22-2024 03:30-0400 Body mass index (BMI) [Ratio] 26 kg/m2 Dr. López Ocampo MD Work Phone: 0(554)697-090732 [place] [address] 09-22-2024 03:30-0400 Body weight 73.[address] López Ocampo MD Work Phone: 8(238)738-241132 [place] [address] 09-19-2024 10:17-0400 Body height 167.[address] López Ocampo MD Work Phone: 0(113)128-861332 [place] [address] 09-19-2024 09:00-0400 Inhaled oxygen concentration 2 % Dr. López Ocampo MD Work Phone: 6(083)819-318932 [place] [address] 09-19-2024 07:56-0400 Inhaled oxygen flow rate 2 L/min Dr. López Ocampo MD Work Phone: 0(911)116-370832 [place] [address] 09-18-2024 16:37-0400 Diastolic blood pressure 53 mm[Hg] Dr. López Ocampo MD Work Phone: 2(343)128-103432 [place] [address] 09-18-2024 16:37-0400 Systolic blood pressure 91 mm[Hg] Dr. López Ocampo MD Work Phone: 8(388)842-785532 [place] [address] 09-18-2024 14:30-0400 Body temperature 98.4 [degF] Dr. López Ocampo MD Work Phone: 7(453)642-292432 [place] [address] 09-18-2024 14:30-0400 Heart rate 85 /min Dr. López Ocampo MD Work Phone: 0(757)042-873932 [place] [address] 09-18-2024 14:30-0400 Respiratory rate 20 /min Dr. López Ocampo MD Work Phone: [facility] 09-18-2024 14:30-0400 SaO2% (BldA) [Mass fraction] 93 % Dr. López Ocampo MD Work Phone: [facility] 09-18-2024 12:57-0400 Body mass index (BMI) [Ratio] 22.6 kg/m2 Dr. López Ocampo MD Work Phone: [facility] 09-18-2024 12:57-0400 Body weight 67.[address] López Ocampo MD Work Phone: [facility] 09-18-2024 12:26-0400 Body height 172.[address] López Ocampo MD Work Phone: [facility] 09-10-2024 13:26-0400 Diastolic blood pressure 59 mm[Hg] Injection Wstr Work Phone: [facility] 09-10-2024 13:26-0400 Heart rate 91 /min Injection Wstr Work Phone: [facility] 09-10-2024 13:26-0400 Respiratory rate 12 /min Injection Wstr Work Phone: [facility] 09-10-2024 13:26-0400 SaO2% (BldA) [Mass fraction] 99 % Injection Wstr Work Phone: [facility] 09-10-2024 13:26-0400 Systolic blood pressure 96 mm[Hg] Injection Wstr Work Phone: [facility] 09-08-2024 09:54-0400 Body mass index (BMI) [Ratio] 24.11 kg/m2 Dereje Herring MD Work Phone: [facility] 09-08-2024 09:54-0400 Body temperature 97 [degF] Dereje Herring MD Work Phone: [facility] 09-08-2024 09:54-0400 Body weight 68.04 kg Dereje Herring MD Work Phone: [facility] 09-08-2024 09:54-0400 Diastolic blood pressure 74 mm[Hg] Dereje Herring MD Work Phone: [facility] 09-08-2024 09:54-0400 Heart rate 86 /min Dereje Herring MD Work Phone: [facility] 09-08-2024 09:54-0400 SaO2% (BldA) [Mass fraction] 97 % Dereje Herring MD Work Phone: [facility] 09-08-2024 09:54-0400 Systolic blood pressure 127 mm[Hg] Dereje Herring MD Work Phone: [facility] 08-11-2024 09:12-0400 Body mass index (BMI) [Ratio] 23.87 kg/m2 Dereje Herring MD Work Phone: [facility] 08-11-2024 09:12-0400 Body temperature 97.3 [degF] Dereje Herring MD Work Phone: [facility] 08-11-2024 09:12-0400 Body weight 67.36 kg Deerje Herring MD Work Phone: [facility] 08-11-2024 09:12-0400 Diastolic blood pressure 59 mm[Hg] Dereje Herring MD Work Phone: [facility] 08-11-2024 09:12-0400 Heart rate 94 /min Dereje Herring MD Work Phone: [facility] 08-11-2024 09:12-0400 SaO2% (BldA) [Mass fraction] 98 % Dereje Herring MD Work Phone: [facility] 08-11-2024 09:12-0400 Systolic blood pressure 101 mm[Hg] Dereje Herring MD Work Phone: [facility] 08-09-2024 15:20-0400 Body height 168 cm Candace Guerra APRN.RANGE SCIENTIST Work Phone: [facility] 08-09-2024 15:20-0400 Body mass index (BMI) [Ratio] 24.38 kg/m2 Candace Guerra APRN.RANGE SCIENTIST Work Phone: [facility] 08-09-2024 15:20-0400 Body weight 68.8 kg Candace Guerra APRN.RANGE SCIENTIST Work Phone: [facility] 08-09-2024 15:20-0400 Diastolic blood pressure 64 mm[Hg] Candace Guerra APRN.RANGE SCIENTIST Work Phone: [facility] 08-09-2024 15:20-0400 Heart rate 95 /min Candace Guerra APRN.RANGE SCIENTIST Work Phone: [facility] 08-09-2024 15:20-0400 SaO2% (BldA) [Mass fraction] 97 % Candace Guerra APRN.RANGE SCIENTIST Work Phone: [facility] 08-09-2024 15:20-0400 Systolic blood pressure 110 mm[Hg] Candace Guerra APRN.RANGE SCIENTIST Work Phone: [facility] 07-14-2024 10:33-0400 Body mass index (BMI) [Ratio] 24.27 kg/m2 Injection Wstr Work Phone: [facility] 07-14-2024 10:33-0400 Body temperature 97.59 [degF] Injection Wstr Work Phone: [facility] 07-14-2024 10:33-0400 Body weight 68.49 kg Injection Wstr Work Phone: [facility] 07-14-2024 10:33-0400 Diastolic blood pressure 67 mm[Hg] Injection Wstr Work Phone: [facility] 07-14-2024 10:33-0400 Heart rate 74 /min Injection Wstr Work Phone: [facility] 07-14-2024 10:33-0400 Respiratory rate 12 /min Injection Wstr Work Phone: [facility] 07-14-2024 10:33-0400 SaO2% (BldA) [Mass fraction] 100 % Injection Wstr Work Phone: [facility] 07-14-2024 10:33-0400 Systolic blood pressure 113 mm[Hg] Injection Wstr Work Phone: [facility] 06-24-2024 09:11-0400 Body mass index (BMI) [Ratio] 24.35 kg/m2 Suresh Hodges MD Work Phone: [facility] 06-24-2024 09:11-0400 Body temperature 97.2 [degF] Suresh Hodges MD Work Phone: [facility] 06-24-2024 09:11-0400 Body weight 68.72 kg Suresh Hodges MD Work Phone: [facility] 06-24-2024 09:11-0400 Diastolic blood pressure 74 mm[Hg] Suresh Hodges MD Work Phone: [facility] 06-24-2024 09:11-0400 Heart rate 97 /min Suresh Hodges MD Work Phone: [facility] 06-24-2024 09:11-0400 Respiratory rate 14 /min Suresh Hodges MD Work Phone: [facility] 06-24-2024 09:11-0400 SaO2% (BldA) [Mass fraction] 98 % Suresh Hodges MD Work Phone: [facility] 06-24-2024 09:11-0400 Systolic blood pressure 114 mm[Hg] Suresh Hodges MD Work Phone: [facility] 06-16-2024 10:35-0400 Body mass index (BMI) [Ratio] 24.27 kg/m2 Injection Wstr Work Phone: [facility] 06-16-2024 10:35-0400 Body temperature 98.2 [degF] Injection Wstr Work Phone: [facility] 06-16-2024 10:35-0400 Body weight 68.49 kg Injection Wstr Work Phone: [facility] 06-16-2024 10:35-0400 Diastolic blood pressure 66 mm[Hg] Injection Wstr Work Phone: [facility] 06-16-2024 10:35-0400 Heart rate 96 /min Injection Wstr Work Phone: [facility] 06-16-2024 10:35-0400 Respiratory rate 12 /min Injection Wstr Work Phone: [facility] 06-16-2024 10:35-0400 SaO2% (BldA) [Mass fraction] 97 % Injection Wstr Work Phone: [facility] 06-16-2024 10:35-0400 Systolic blood pressure 105 mm[Hg] Injection Wstr Work Phone: [facility] 05-12-2024 10:10-0500 Body mass index (BMI) [Ratio] 24.59 kg/m2 Injection Wstr Work Phone: [facility] 05-12-2024 10:10-0500 Body weight 69.4 kg Injection Wstr Work Phone: [facility] 05-12-2024 10:10-0500 Diastolic blood pressure 74 mm[Hg] Injection Wstr Work Phone: [facility] 05-12-2024 10:10-0500 Heart rate 79 /min Injection Wstr Work Phone: [facility] 05-12-2024 10:10-0500 Respiratory rate 12 /min Injection Wstr Work Phone: [facility] 05-12-2024 10:10-0500 SaO2% (BldA) [Mass fraction] 97 % Injection Wstr Work Phone: [facility] 05-12-2024 10:10-0500 Systolic blood pressure 119 mm[Hg] Injection Wstr Work Phone: [facility] 04-14-2024 10:15-0500 Body mass index (BMI) [Ratio] 24.43 kg/m2 Injection Wstr Work Phone: [facility] 04-14-2024 10:15-0500 Body temperature 97.9 [degF] Injection Wstr Work Phone: [facility] 04-14-2024 10:15-0500 Body weight 68.95 kg Injection Wstr Work Phone: [facility] 04-14-2024 10:15-0500 Diastolic blood pressure 68 mm[Hg] Injection Wstr Work Phone: [facility] 04-14-2024 10:15-0500 Heart rate 91 /min Injection Wstr Work Phone: [facility] 04-14-2024 10:15-0500 SaO2% (BldA) [Mass fraction] 98 % Injection Wstr Work Phone: [facility] 04-14-2024 10:15-0500 Systolic blood pressure 133 mm[Hg] Injection Wstr Work Phone: [facility] 03-17-2024 09:46-0500 Body mass index (BMI) [Ratio] 23.62 kg/m2 Injection Wstr Work Phone: [facility] 03-17-2024 09:46-0500 Body temperature 97.7 [degF] Injection Wstr Work Phone: [facility] 03-17-2024 09:46-0500 Body weight 66.68 kg Injection Wstr Work Phone: [facility] 03-17-2024 09:46-0500 Diastolic blood pressure 65 mm[Hg] Injection Wstr Work Phone: [facility] 03-17-2024 09:46-0500 Heart rate 82 /min Injection Wstr Work Phone: [facility] 03-17-2024 09:46-0500 Respiratory rate 12 /min Injection Wstr Work Phone: [facility] 03-17-2024 09:46-0500 SaO2% (BldA) [Mass fraction] 94 % Injection Wstr Work Phone: [facility] 03-17-2024 09:46-0500 Systolic blood pressure 122 mm[Hg] Injection Wstr Work Phone: [facility] 03-10-2024 09:00-0500 Body height 168 cm Catherine Podlogar TISSUE TECHNICIAN.RANGE SCIENTIST Work Phone: [facility] 03-10-2024 09:00-0500 Body mass index (BMI) [Ratio] 22.6 kg/m2 Catherine Podlogar TISSUE TECHNICIAN.RANGE SCIENTIST Work Phone: [facility] 03-10-2024 09:00-0500 Body weight 63.8 kg Catherine Podlogar TISSUE TECHNICIAN.RANGE SCIENTIST Work Phone: [facility] 03-10-2024 09:00-0500 Diastolic blood pressure 76 mm[Hg] Catherine Podlogar TISSUE TECHNICIAN.RANGE SCIENTIST Work Phone: [facility] 03-10-2024 09:00-0500 Heart rate 84 /min Catherine Podlogar TISSUE TECHNICIAN.RANGE SCIENTIST Work Phone: [facility] 03-10-2024 09:00-0500 Respiratory rate 18 /min Catherine Podlogar TISSUE TECHNICIAN.RANGE SCIENTIST Work Phone: [facility] 03-10-2024 09:00-0500 Systolic blood pressure 124 mm[Hg] Catherine Podlogar TISSUE TECHNICIAN.RANGE SCIENTIST Work Phone: [facility] 02-18-2024 09:39-0500 Body mass index (BMI) [Ratio] 22.87 kg/m2 Injection Wstr Work Phone: [facility] 02-18-2024 09:39-0500 Body temperature 97 [degF] Injection Wstr Work Phone: [facility] 02-18-2024 09:39-0500 Body weight 66.22 kg Injection Wstr Work Phone: [facility] 02-18-2024 09:39-0500 Diastolic blood pressure 61 mm[Hg] Injection Wstr Work Phone: [facility] 02-18-2024 09:39-0500 Heart rate 90 /min Injection Wstr Work Phone: [facility] 02-18-2024 09:39-0500 Respiratory rate 12 /min Injection Wstr Work Phone: [facility] 02-18-2024 09:39-0500 SaO2% (BldA) [Mass fraction] 97 % Injection Wstr Work Phone: [facility] 02-18-2024 09:39-0500 Systolic blood pressure 98 mm[Hg] Injection Wstr Work Phone: [facility] 02-03-2024 10:14-0400 Body mass index (BMI) [Ratio] 23.49 kg/m2 Arsalan Ocampo MD Work Phone: [facility] 02-03-2024 10:14-0400 Body weight 68.04 kg Arsalan Ocampo MD Work Phone: [facility] 02-03-2024 10:14-0400 Diastolic blood pressure 58 mm[Hg] Arsalan Ocampo MD Work Phone: [facility] 02-03-2024 10:14-0400 Heart rate 93 /min Arsalan Ocampo MD Work Phone: [facility] 02-03-2024 10:14-0400 Respiratory rate 16 /min Arsalan Ocampo MD Work Phone: [facility] 02-03-2024 10:14-0400 SaO2% (BldA) [Mass fraction] 99 % Arsalan Ocampo MD Work Phone: [facility] 02-03-2024 10:14-0400 Systolic blood pressure 118 mm[Hg] Arsalan Ocampo MD Work Phone: [facility] 01-21-2024 09:25-0400 Body mass index (BMI) [Ratio] 23.57 kg/m2 Dereje Herring MD Work Phone: [facility] 01-21-2024 09:25-0400 Body temperature 96.49 [degF] Dereje Herring MD Work Phone: [facility] 01-21-2024 09:25-0400 Body weight 68.27 kg Dereje Herring MD Work Phone: [facility] 01-21-2024 09:25-0400 Diastolic blood pressure 72 mm[Hg] Dereje Herring MD Work Phone: [facility] 01-21-2024 09:25-0400 Heart rate 94 /min Dereje Herring MD Work Phone: [facility] 01-21-2024 09:25-0400 SaO2% (BldA) [Mass fraction] 98 % Dereje Herring MD Work Phone: [facility] 01-21-2024 09:25-0400 Systolic blood pressure 118 mm[Hg] Dereje Herring MD Work Phone: [facility] 12-24-2023 11:37-0400 Body mass index (BMI) [Ratio] 23.79 kg/m2 Catherine Podlogar TISSUE TECHNICIAN.RANGE SCIENTIST Work Phone: [facility] 12-24-2023 11:37-0400 Body weight 68.9 kg Catherine Podlogar TISSUE TECHNICIAN.RANGE SCIENTIST Work Phone: [facility] 12-24-2023 11:37-0400 Diastolic blood pressure 62 mm[Hg] Catherine Podlogar TISSUE TECHNICIAN.RANGE SCIENTIST Work Phone: [facility] 12-24-2023 11:37-0400 Heart rate 102 /min Catherine Podlogar TISSUE TECHNICIAN.RANGE SCIENTIST Work Phone: [facility] 12-24-2023 11:37-0400 Respiratory rate 18 /min Catherine Podlogar TISSUE TECHNICIAN.RANGE SCIENTIST Work Phone: [facility] 12-24-2023 11:37-0400 SaO2% (BldA) [Mass fraction] 98 % Catherine Podlogar TISSUE TECHNICIAN.RANGE SCIENTIST Work Phone: [facility] 12-24-2023 11:37-0400 Systolic blood pressure 112 mm[Hg] Catherine Podlogar TISSUE TECHNICIAN.RANGE SCIENTIST Work Phone: [facility] 12-17-2023 09:140400 Body mass index (BMI) [Ratio] 24.28 kg/m2 Injection Wstr Work Phone: [facility] 12-17-2023 09:14-0400 Body weight 70.31 kg Injection Wstr Work Phone: [facility] 12-17-2023 09:14-0400 Diastolic blood pressure 66 mm[Hg] Injection Wstr Work Phone: [facility] 12-17-2023 09:14-0400 Heart rate 91 /min Injection Wstr Work Phone: [facility] 12-17-2023 09:14-0400 Respiratory rate 12 /min Injection Wstr Work Phone: [facility] 12-17-2023 09:14-0400 SaO2% (BldA) [Mass fraction] 99 % Injection Wstr Work Phone: [facility] 12-17-2023 09:14-0400 Systolic blood pressure 119 mm[Hg] Injection Wstr Work Phone: [facility] 11-19-2023 10:52-0400 Body mass index (BMI) [Ratio] 23.65 kg/m2 Injection Wstr Work Phone: [facility] 11-19-2023 10:52-0400 Body temperature 97 [degF] Injection Wstr Work Phone: [facility] 11-19-2023 10:52-0400 Body weight 68.49 kg Injection Wstr Work Phone: [facility] 11-19-2023 10:52-0400 Diastolic blood pressure 65 mm[Hg] Injection Wstr Work Phone: [facility] 11-19-2023 10:52-0400 Heart rate 79 /min Injection Wstr Work Phone: [facility] 11-19-2023 10:52-0400 Respiratory rate 12 /min Injection Wstr Work Phone: [facility] 11-19-2023 10:52-0400 SaO2% (BldA) [Mass fraction] 95 % Injection Wstr Work Phone: [facility] 11-19-2023 10:52-0400 Systolic blood pressure 109 mm[Hg] Injection Wstr Work Phone: [facility] 10-22-2023 08:18-0400 Body mass index (BMI) [Ratio] 23.88 kg/m2 Dereje Herring MD Work Phone: [facility] 10-22-2023 08:18-0400 Body temperature 97 [degF] Dereje Herring MD Work Phone: [facility] 10-22-2023 08:18-0400 Body weight 69.17 kg Dereje Herring MD Work Phone: [facility] 10-22-2023 08:18-0400 Diastolic blood pressure 72 mm[Hg] Dereje Herring MD Work Phone: [facility] 10-22-2023 08:18-0400 Heart rate 80 /min Dereje Herring MD Work Phone: [facility] 10-22-2023 08:18-0400 SaO2% (BldA) [Mass fraction] 97 % Dereje Herring MD Work Phone: [facility] 10-22-2023 08:18-0400 Systolic blood pressure 119 mm[Hg] Dereje Herring MD Work Phone: [facility] 10-16-2023 15:02-0400 Body height 170.2 cm Dorcas Champagne DO Work Phone: [facility] 10-16-2023 15:02-0400 Body mass index (BMI) [Ratio] 24.17 kg/m2 Dorcas Champagne DO Work Phone: [facility] 10-16-2023 15:02-0400 Body weight 70 kg Dorcas Champagne DO Work Phone: [facility] 10-16-2023 15:02-0400 Diastolic blood pressure 64 mm[Hg] Dorcas Champagne DO Work Phone: [facility] 10-16-2023 15:02-0400 Heart rate 98 /min Dorcas Champagne DO Work Phone: [facility] 10-16-2023 15:02-0400 SaO2% (BldA) [Mass fraction] 97 % Dorcas Champagne DO Work Phone: [facility] 10-16-2023 15:02-0400 Systolic blood pressure 118 mm[Hg] Dorcas Champagne DO Work Phone: [facility] 10-02-2023 08:57-0400 Body height 171 cm Injection Wstr Work Phone: [facility] 10-02-2023 08:57-0400 Body mass index (BMI) [Ratio] 23.89 kg/m2 Injection Wstr Work Phone: [facility] 10-02-2023 08:57-0400 Body temperature 97.7 [degF] Injection Wstr Work Phone: [facility] 10-02-2023 08:57-0400 Body weight 69.85 kg Injection Wstr Work Phone: [facility] 10-02-2023 08:57-0400 Diastolic blood pressure 66 mm[Hg] Injection Wstr Work Phone: [facility] 10-02-2023 08:57-0400 Heart rate 74 /min Injection Wstr Work Phone: [facility] 10-02-2023 08:57-0400 SaO2% (BldA) [Mass fraction] 98 % Injection Wstr Work Phone: [facility] 10-02-2023 08:57-0400 Systolic blood pressure 131 mm[Hg] Injection Wstr Work Phone: [facility] 09-24-2023 09:12-0400 Body mass index (BMI) [Ratio] 24.12 kg/m2 Injection Wstr Work Phone: [facility] 09-24-2023 09:12-0400 Body temperature 97.3 [degF] Injection Wstr Work Phone: [facility] 09-24-2023 09:12-0400 Body weight 69.85 kg Injection Wstr Work Phone: [facility] 09-24-2023 09:12-0400 Diastolic blood pressure 65 mm[Hg] Injection Wstr Work Phone: [facility] 09-24-2023 09:12-0400 Heart rate 65 /min Injection Wstr Work Phone: [facility] 09-24-2023 09:12-0400 Respiratory rate 12 /min Injection Wstr Work Phone: [facility] 09-24-2023 09:12-0400 SaO2% (BldA) [Mass fraction] 97 % Injection Wstr Work Phone: [facility] 09-24-2023 09:12-0400 Systolic blood pressure 115 mm[Hg] Injection Wstr Work Phone: [facility] 08-27-2023 09:10-0400 Body mass index (BMI) [Ratio] 24.12 kg/m2 Injection Wstr Work Phone: [facility] 08-27-2023 09:10-0400 Body temperature 97.11 [degF] Injection Wstr Work Phone: [facility] 08-27-2023 09:10-0400 Body weight 69.85 kg Injection Wstr Work Phone: [facility] 08-27-2023 09:10-0400 Diastolic blood pressure 68 mm[Hg] Injection Wstr Work Phone: [facility] 08-27-2023 09:10-0400 Heart rate 82 /min Injection Wstr Work Phone: [facility] 08-27-2023 09:10-0400 Respiratory rate 12 /min Injection Wstr Work Phone: [facility] 08-27-2023 09:10-0400 SaO2% (BldA) [Mass fraction] 97 % Injection Wstr Work Phone: [facility] 08-27-2023 09:10-0400 Systolic blood pressure 106 mm[Hg] Injection Wstr Work Phone: [facility] 07-31-2023 09:07-0400 Body mass index (BMI) [Ratio] 24.28 kg/m2 Injection Wstr Work Phone: [facility] 07-31-2023 09:07-0400 Body temperature 98.01 [degF] Injection Wstr Work Phone: [facility] 07-31-2023 09:07-0400 Body weight 70.31 kg Injection Wstr Work Phone: [facility] 07-31-2023 09:07-0400 Diastolic blood pressure 69 mm[Hg] Injection Wstr Work Phone: [facility] 07-31-2023 09:07-0400 Heart rate 84 /min Injection Wstr Work Phone: [facility] 07-31-2023 09:07-0400 Respiratory rate 12 /min Injection Wstr Work Phone: [facility] 07-31-2023 09:07-0400 SaO2% (BldA) [Mass fraction] 98 % Injection Wstr Work Phone: [facility] 07-31-2023 09:07-0400 Systolic blood pressure 119 mm[Hg] Injection Wstr Work Phone: [facility] 06-11-2023 10:05-0500 Body weight 71.94 kg Catherine Podlogar TISSUE TECHNICIAN.RANGE SCIENTIST Work Phone: [facility] 06-11-2023 10:05-0500 Diastolic blood pressure 62 mm[Hg] Catherine Podlogar TISSUE TECHNICIAN.RANGE SCIENTIST Work Phone: [facility] 06-11-2023 10:05-0500 Heart rate 106 /min Catherine Podlogar TISSUE TECHNICIAN.RANGE SCIENTIST Work Phone: [facility] 06-11-2023 10:05-0500 Respiratory rate 16 /min Catherine Podlogar TISSUE TECHNICIAN.RANGE SCIENTIST Work Phone: [facility] 06-11-2023 10:05-0500 SaO2% (BldA) [Mass fraction] 96 % Catherine Peraza APRN.RANGE SCIENTIST Work Phone: [facility] 06-11-2023 10:05-0500 Systolic blood pressure 114 mm[Hg] Catherine Peraza APRN.RANGE SCIENTIST Work Phone: [facility] 05-08-2023 09:19-0500 Body temperature 97.9 [degF] Injection Wstr Work Phone: [facility] 05-08-2023 09:19-0500 Body weight 72.58 kg Injection Wstr Work Phone: [facility] 05-08-2023 09:19-0500 Diastolic blood pressure 58 mm[Hg] Injection Wstr Work Phone: [facility] 05-08-2023 09:19-0500 Heart rate 74 /min Injection Wstr Work Phone: [facility] 05-08-2023 09:19-0500 Respiratory rate 12 /min Injection Wstr Work Phone: [facility] 05-08-2023 09:19-0500 SaO2% (BldA) [Mass fraction] 95 % Injection Wstr Work Phone: [facility] 05-08-2023 09:19-0500 Systolic blood pressure 102 mm[Hg] Injection Wstr Work Phone: [facility] 02-13-2023 10:26-0500 Diastolic blood pressure 66 mm[Hg] Injection Wstr Work Phone: [facility] 02-13-2023 10:26-0500 Heart rate 85 /min Injection Wstr Work Phone: [facility] 02-13-2023 10:26-0500 SaO2% (BldA) [Mass fraction] 98 % Injection Wstr Work Phone: [facility] 02-13-2023 10:26-0500 Systolic blood pressure 109 mm[Hg] Injection Wstr Work Phone: [facility] 12-19-2022 09:15-0400 Body temperature 98.1 [degF] Injection Wstr Work Phone: [facility] 12-19-2022 09:15-0400 Diastolic blood pressure 64 mm[Hg] Injection Wstr Work Phone: [facility] 12-19-2022 09:15-0400 Heart rate 78 /min Injection Wstr Work Phone: [facility] 12-19-2022 09:15-0400 Systolic blood pressure 121 mm[Hg] Injection Wstr Work Phone: [facility] 11-21-2022 09:37-0400 Body temperature 96.91 [degF] Injection Wstr Work Phone: [facility] 11-21-2022 09:37-0400 Body weight 68.95 kg Injection Wstr Work Phone: [facility] 11-21-2022 09:37-0400 Diastolic blood pressure 58 mm[Hg] Injection Wstr Work Phone: [facility] 11-21-2022 09:37-0400 Heart rate 78 /min Injection Wstr Work Phone: [facility] 11-21-2022 09:37-0400 Systolic blood pressure 99 mm[Hg] Injection Wstr Work Phone: [facility] 11-19-2022 13:18-0400 Body height 170.2 cm Derrek Samuel PA-C Work Phone: [facility] 11-19-2022 13:18-0400 Body temperature 97.39 [degF] Derrek Samuel PA-C Work Phone: [facility] 11-19-2022 13:18-0400 Body weight 69.22 kg Derrek Samuel PA-C Work Phone: [facility] 11-19-2022 13:18-0400 Diastolic blood pressure 72 mm[Hg] Derrek Thomas PA-C Work Phone: [facility] 11-19-2022 13:18-0400 Heart rate 101 /min Derrek Baker PA-C Work Phone: [facility] 11-19-2022 13:18-0400 SaO2% (BldA) [Mass fraction] 100 % Derrek Baker PA-C Work Phone: [facility] 11-19-2022 13:18-0400 Systolic blood pressure 116 mm[Hg] Derrek Baker PA-C Work Phone: [facility] 10-24-2022 09:12-0400 Body temperature 96.8 [degF] Injection Wstr Work Phone: [facility] 10-24-2022 09:12-0400 Diastolic blood pressure 51 mm[Hg] Injection Wstr Work Phone: [facility] 10-24-2022 09:12-0400 Heart rate 66 /min Injection Wstr Work Phone: [facility] 10-24-2022 09:12-0400 Systolic blood pressure 99 mm[Hg] Injection Wstr Work Phone: [facility] 10-14-2022 09:15-0400 Body temperature 97.3 [degF] Injection Wstr Work Phone: [facility] 10-14-2022 09:15-0400 Body weight 68.49 kg Injection Wstr Work Phone: [facility] 10-14-2022 09:15-0400 Diastolic blood pressure 64 mm[Hg] Injection Wstr Work Phone: [facility] 10-14-2022 09:15-0400 Heart rate 75 /min Injection Wstr Work Phone: [facility] 10-14-2022 09:15-0400 Systolic blood pressure 104 mm[Hg] Injection Wstr Work Phone: [facility] 09-26-2022 09:49-0400 Body temperature 97.5 [degF] Injection Wstr Work Phone: [facility] 09-26-2022 09:49-0400 Body weight 70.31 kg Injection Wstr Work Phone: [facility] 09-26-2022 09:49-0400 Diastolic blood pressure 57 mm[Hg] Injection Wstr Work Phone: [facility] 09-26-2022 09:49-0400 Heart rate 80 /min Injection Wstr Work Phone: [facility] 09-26-2022 09:49-0400 Systolic blood pressure 108 mm[Hg] Injection Wstr Work Phone: [facility] 09-23-2022 13:53-0400 Body height [address] PERFECTO GERBER MD [facility] 09-23-2022 13:53-0400 Body temperature 97.7 [degF] DR PERFECTO GERBER MD [facility] 09-23-2022 13:53-0400 Body weight [address] PERFECTO GERBER MD [facility] 09-23-2022 13:53-0400 Diastolic Blood Pressure Non-Invasive [address] PERFECTO GERBER MD [facility] 09-23-2022 13:53-0400 Heart rate 100 /min DR PERFECTO GERBER MD [facility] 09-23-2022 13:53-0400 Respiratory rate 18 /min DR PERFECTO GERBER MD [facility] 09-23-2022 13:53-0400 Systolic Blood Pressure Non-Invasive [address] PERFECTO GERBER MD [facility] 08-16-2022 11:01-0400 Body temperature 97.2 [degF] Sanjeev Aranda TISSUE TECHNICIAN.RANGE SCIENTIST Work Phone: [facility] 08-16-2022 11:01-0400 Body weight 69.63 kg [place] Rosi TISSUE TECHNICIAN.RANGE SCIENTIST Work Phone: [facility] 08-16-2022 11:01-0400 Diastolic blood pressure 76 mm[Hg] Sanjeev Aranda TISSUE TECHNICIAN.RANGE SCIENTIST Work Phone: [facility] 08-16-2022 11:01-0400 Heart rate 84 /min [place] Aranda TISSUE TECHNICIAN.RANGE SCIENTIST Work Phone: [facility] 08-16-2022 11:01-0400 Systolic blood pressure 104 mm[Hg] [place] Aranda TISSUE TECHNICIAN.RANGE SCIENTIST Work Phone: [facility] 04-26-2022 11:07-0500 Body height 170.2 cm Sp Mckeon DO Work Phone: [facility] 04-26-2022 11:07-0500 Body weight 69.4 kg Sp Bhattinan DO Work Phone: [facility] 04-26-2022 11:07-0500 Respiratory rate 18 /min Junyram Shane DO Work Phone: [facility] 02-27-2022 10:02-0500 Diastolic blood pressure 61 mm[Hg] Lyn Mcgowan MD Work Phone: [facility] 02-27-2022 10:02-0500 Heart rate 64 /min Lyn Mcgowan MD Work Phone: [facility] 02-27-2022 10:02-0500 Respiratory rate 16 /min Lyn Mcgowan MD Work Phone: [facility] 02-27-2022 10:02-0500 SaO2% (BldA) [Mass fraction] 94 % Lyn Mcgowan MD Work Phone: [facility] 02-27-2022 10:02-0500 Systolic blood pressure 102 mm[Hg] Lyn Mcgowan MD Work Phone: [facility] 02-27-2022 08:45-0500 Body temperature 96.21 [degF] Lyn Mcgowan MD Work Phone: [facility] 02-27-2022 08:45-0500 Body weight 71 kg Lyn Mcgowan MD Work Phone: [facility] 02-14-2022 10:33-0500 Body height 170.3 cm Lillian Clemente MD Work Phone: [facility] 02-14-2022 10:33-0500 Body temperature 97 [degF] Lillian Clemente MD Work Phone: [facility] 02-14-2022 10:33-0500 Body weight 70.99 kg Lillian Clemente MD Work Phone: [facility] 02-14-2022 10:33-0500 Diastolic blood pressure 63 mm[Hg] Lillian Clemente MD Work Phone: [facility] 02-14-2022 10:33-0500 Heart rate 96 /min Lillian Clemente MD Work Phone: [facility] 02-14-2022 10:33-0500 SaO2% (BldA) [Mass fraction] 98 % Lillian Clemente MD Work Phone: [facility] 02-14-2022 10:33-0500 Systolic blood pressure 113 mm[Hg] Lillian Clemente MD Work Phone: [facility] 11-13-2021 09:01-0400 Body weight 70.67 kg Arsalan Ocampo MD Work Phone: [facility] 11-13-2021 09:01-0400 Diastolic blood pressure 62 mm[Hg] Arsalan Ocampo MD Work Phone: [facility] 11-13-2021 09:01-0400 Heart rate 78 /min Arsalan Ocampo MD Work Phone: [facility] 11-13-2021 09:01-0400 Respiratory rate 16 /min Arsalan Ocampo MD Work Phone: [facility] 11-13-2021 09:01-0400 SaO2% (BldA) [Mass fraction] 98 % Arsalan Ocampo MD Work Phone: [facility] 11-13-2021 09:01-0400 Systolic blood pressure 110 mm[Hg] Arsalan Ocampo MD Work Phone: [facility] 09-05-2021 10:11-0400 Body height 172.7 cm Sp Mckeon DO Work Phone: [facility] 09-05-2021 10:11-0400 Body weight 69.4 kg Sp Mckeon DO Work Phone: [facility] 09-05-2021 10:11-0400 Diastolic blood pressure 60 mm[Hg] Sp Mckeon DO Work Phone: [facility] 09-05-2021 10:11-0400 Systolic blood pressure 113 mm[Hg] Sp Mckeon DO Work Phone: [facility] 09-04-2021 12:55-0400 Body height 172.7 cm Jazlyn Lombardi III, MD Work Phone: [facility] 09-04-2021 12:55-0400 Body mass index (BMI) [Ratio] 23.14 kg/m2 Jazlyn Lombardi III, MD Work Phone: [facility] 09-04-2021 12:55-0400 Body temperature 98.4 [degF] Jazlyn Lombardi III, MD Work Phone: [facility] 09-04-2021 12:55-0400 Body weight 69.04 kg Jazlyn Lombardi III, MD Work Phone: [facility] 09-04-2021 12:55-0400 Diastolic blood pressure 67 mm[Hg] Jazlyn Lombardi III, MD Work Phone: [facility] 09-04-2021 12:55-0400 Heart rate 98 /min Jazlyn Lombardi III, MD Work Phone: [facility] 09-04-2021 12:55-0400 Respiratory rate 16 /min Jazlyn Lombardi III, MD Work Phone: [facility] 09-04-2021 12:55-0400 SaO2% (BldA) [Mass fraction] 95 % Jazlyn Lombardi III, MD Work Phone: [facility] 09-04-2021 12:55-0400 Systolic blood pressure 126 mm[Hg] Jazlyn Lombardi III, MD Work Phone: [facility] 08-28-2021 11:37-0400 Body temperature 97.7 [degF] Lillian Clemente MD Work Phone: [facility] 08-28-2021 11:37-0400 Body weight 69.63 kg Lillian Clemente MD Work Phone: [facility] 08-28-2021 11:37-0400 Diastolic blood pressure 55 mm[Hg] Lillian Clemente MD Work Phone: [facility] 08-28-2021 11:37-0400 Heart rate 95 /min Lillian Clemente MD Work Phone: [facility] 08-28-2021 11:37-0400 Systolic blood pressure 100 mm[Hg] Lillian Clemente MD Work Phone: [facility] Encounters Encounter Date Encounter Type Care Provider Facility Start: 10-14-2024 End: 10-14-2024 Telephone encounter Felix Al MD Work Phone: General Surgery Comment on above: Appointment; Orders Start: 10-14-2024 End: 10-14-2024 Admission to same day surgery center Dr. Lydia Mauricio MD -Wound [facility] Work Phone: Start: 10-14-2024 End: 10-14-[address] López Ocampo MD Work Phone: -[facility] Start: 10-13-2024 End: 10-13-2024 Telephone encounter Felix Al MD Work Phone: General Surgery Comment on above: Request Outside [facility] Records Start: 10-13-2024 End: 10-13-2024 Patient encounter procedure Felix Al MD Work Phone: General Surgery Comment on above: Sepsis with acute or rachel dysfunction and septic shock, due to unspecified organism, unspecified organ dysfunction type (HCC) (Primary Dx); Cholangitis (HCC) Start: 10-12-2024 End: 10-12-2024 Patient encounter procedure Deshaun Santizo MD Work Phone: Otolaryngology Comment on above: Open wound of scalp, unspecified open wound type, initial encounter (Primary Dx); Wound dehiscence Start: 10-06-2024 End: 10-11-2024 Admission to same day surgery center Dereje Herring MD Work Phone: Hematology/Oncology Comment on above: Wound from Mohs surg philip Start: 10-06-2024 End: 10-11-2024 ambulatory Dereje Herring MD Work Phone: Hematology/Oncology Start: 10-01-2024 End: 10-01-2024 Telephone encounter Deshaun Santizo MD Work Phone: [facility] Start: 10-01-2024 End: 10-01-2024 Nursing evaluation of patient and report Derm Surgery Nurse Work Phone: Dermatology Comment on above: 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) Start: 10-01-2024 End: 10-01-2024 ambulatory ARSALAN OCAMPO Facility:[facility] Start: 09-30-2024 End: 09-30-2024 ambulatory Injection Ryne [facility] Work Phone: Hematology/Oncology Comment on above: 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) Start: 09-30-2024 End: 09-30-2024 Telephone encounter Dereje Herring MD Work Phone: Hematology/Oncology Start: 09-28-2024 ambulatory ARSALAN OCAMPO Facility:[facility] Start: 09-28-2024 End: 09-28-2024 Subsequent hospital visit by physician Mri Radio [facility] (I-Stat/1.5t) Work Phone: Radiology Comment on above: 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 Laura Nugetn MD [facility] Work Phone: Start: 09-22-2024 Non-patient / Non-visit Dr. Rohit Crawford MD -[facility] Start: 09-21-2024 Non-patient / Non-visit Dr. Rohit Crawford MD [facility] Start: 09-21-2024 End: 09-21-2024 Telephone encounter Dereje Herring MD Work Phone: Hematology/Oncology Comment on above: Patient Question Start: 09-21-2024 Non-patient / Non-visit Dr. Laura Nugent MD [facility] Work Phone: Start: 09-20-2024 End: 09-20-2024 Refill Dereje Herring MD Work Phone: Hematology/Oncology Comment on above: Refill Request Start: 09-20-2024 Non-patient / Non-visit Dr. Laura Nugent MD [facility] Work Phone: Start: 09-19-2024 Non-patient / Non-visit Dr. Laura Nugent MD [facility] Work Phone: Start: 09-18-2024 Non-patient / Non-visit Dr. Laura Nugent MD [facility] Work Phone: Start: 09-18-2024 ambulatory Ivan Nugent Fac ility:[facility] Start: 09-18-2024 End: 09-22-2024 Evaluation and management of inpatient Dr. Ivan Nugent MD -Intensive Care Unit Work Phone: Start: 09-15-2024 End: 09-15-2024 Nursing evaluation of patient and report Maedlaine Bronson MD Work Phone: Dermatology Comment on above: Non-healing surgical wound, subsequent encounter (Primary Dx); Hx of nonmelanoma skin cancer; Encounter for post surgical wound check Start: 09-15-2024 End: 09-15-2024 ambulatory ARSALAN OCAMPO Facility:[facility] Start: 09-10-2024 End: 09-10-2024 ambulatory Injection Ryne [facility] Work Phone: Hematology/Oncology Comment on above: Prostate cancer (HCC ) (Primary Dx) Start: 09-10-2024 End: 09-10-2024 ambulatory SANJEEV MARION Facility:[facility] Start: 09-08-2024 End: 09-08-2024 Patient encounter procedure Dereje Herring MD Work Phone: Hematology/Oncology Start: 09-08-2024 End: 09-08-2024 ambulatory Injection Ryne [facility] Work Phone: Hematology/Oncology Comment on above: Prostate cancer (HCC ) (Primary Dx); 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) Start: 08-27-2024 End: 08-27-2024 ambulatory ARSALAN OCAMPO Facility:[facility] Start: 08-26-2024 End: 08-26-2024 ambulatory ARSALAN OCAMPO Facility:[facility] Start: 08-20-2024 End: 08-20-2024 ambulatory Dereje Herring MD Work Phone: Hematology/Oncology Comment on above: discontinued Aranesp and Xgeva Start: 08-11-2024 End: 08-11-2024 Patient encounter procedure Dereje Herring MD Work Phone: Hematology/Oncology Start: 08-11-2024 End: 08-11-2024 ambulatory Injection Ryne [facility] Work Phone: Hematology/Oncology Comment on above: Prostate cancer (HCC ) (Primary Dx); 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) Start: 06-24-2024 End: 06-24-2024 ambulatory SURESH HODGES Facility:[facility] Start: 06-24-2024 End: 06-24-2024 Patient encounter procedure Suresh Hodges MD Work Phone: Radiation Oncology Comment on above: Squamous cell carcin joseph of scalp Start: 06-17-2024 End: 06-17-2024 Telephone encounter Suresh Hodges MD Work Phone: Radiation Oncology Start: 06-17-2024 End: 06-17-2024 ambulatory RICHIE DEJESUS Facility:[facility] Start: 06-17-2024 End: 06-17-2024 Patient encounter procedure Madelaine Bronson MD Work Phone: Dermatology Comment on above: 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) Start: 06-16-2024 End: 06-16-2024 ambulatory Injection Ryne [facility] Work Phone: Hematology/Oncology Comment on above: Prostate cancer (HCC ) (Primary Dx); 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) Start: 05-18-2024 End: 05-18-2024 Refill Dereje Herring MD Work Phone: Hematology/Oncology Comment on above: Refill Request Start: 05-17-2024 End: 05-18-2024 ambulatory Catherine Peraza APRN.RANGE SCIENTIST Work Phone: [facility] Comment on above: motion sickness Start: 05-13-2024 End: 05-13-2024 Refill Dereje Herring MD Work Phone: Hematology/Oncology Comment on above: Refill Request Start: 05-12-2024 End: 05-12-2024 ambulatory Injection Ryne [facility] Work Phone: Hematology/Oncology Comment on above: 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); Prostate cancer (HCC) Start: 2024 End: 2024 Telephone encounter Richie Dejesus MD Work Phone: Dermatology Comment on above: SKIN CANCER Start: 05-04-2024 End: 05-04-2024 ambulatory ARSALAN OCAMPO Facility:[facility] Start: 05-04-2024 End: 05-04-2024 Patient encounter procedure Richie Dejesus MD Work Phone: Dermatology Comment on above: Skin neoplasm (Prima ry Dx) Start: 04-14-2024 End: 04-14-2024 ambulatory Injection Ryne [facility] Work Phone: Hematology/Oncology Comment on above: Prostate cancer (HCC ) (Primary Dx); 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) Start: 04-05-2024 End: 04-14-2024 Telephone encounter Bashir Mcmahon MD Work Phone: Pain Management Comment on above: Appointment (Appoint ment cancelled) Start: 04-01-2024 End: 04-01-2024 ambulatory [facility]y [facility] [place] Comment on above: Left hip pain (Prima ry Dx); Radiculopathy, lumbar region; Decreased ROM of lumbar spine; Weakness of trunk musculature Start: 03-30-2024 End: 03-30-2024 Refill Dereje Herring MD Work Phone: Hematology/Oncology Comment on above: Refill Request Start: 03-24-2024 End: 03-24-2024 ambulatory Endy Curran PT [facility] [place] Comment on above: Left hip pain (Prima ry Dx); Radiculopathy, lumbar region; Decreased ROM of lumbar spine; Weakness of trunk musculature Start: 03-19-2024 End: 03-19-2024 ambulatory ARSALAN OCAMPO Facility:[facility] Start: 03-19-2024 End: 03-19-2024 Patient encounter procedure Richie Dejesus MD Work Phone: Dermatology Comment on above: Actinic keratosis (P rimary Dx) Start: 03-17-2024 End: 03-17-2024 ambulatory Injection Ryne [facility] Work Phone: Hematology/Oncology Comment on above: Prostate cancer (HCC ) (Primary Dx); 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) Start: 03-16-2024 End: 03-16-2024 ambulatory Juliano Magaña PT [facility] [employer] Operator marlee Curry Comment on above: Left hip pain (Prima ry Dx); Radiculopathy, lumbar region; Decreased ROM of lumbar spine; Weakness of trunk musculature Start: 03-15-2024 End: 03-15-2024 Refill Arsalan Ocampo MD Work Phone: Family Medicine [place] Comment on above: Refill Request Start: 03-10-2024 End: 03-10-2024 ambulatory ARSALAN OCAMPO Facility:[facility] Start: 03-10-2024 End: 03-10-2024 Patient encounter procedure Catherine Peraza APRN.RANGE SCIENTIST Work Phone: Family Medicine [place] Comment on above: Medicare annual well ness visit, subsequent (Primary Dx); Screening for depression Start: 03-09-2024 End: 03-09-2024 ambulatory Jose David Cedeno PRESS SUPERVISOR [employer] [facility] [place] Comment on above: Left hip pain (Prima ry Dx); Radiculopathy, lumbar region; Decreased ROM of lumbar spine; Weakness of trunk musculature Start: 03-02-2024 End: 03-02-2024 ambulatory Juliano Magaña PT [employer] Operator [employer] [place] Comment on above: Left hip pain (Prima ry Dx); Radiculopathy, lumbar region; Decreased ROM of lumbar spine; Weakness of trunk musculature Start: 02-27-2024 End: 02-27-2024 ambulatory Roseanna Braden Hughes PRESS SUPERVISOR [employer] [facility] [place] Comment on above: Left hip pain (Prima ry Dx); Radiculopathy, lumbar region; Decreased ROM of lumbar spine; Weakness of trunk musculature Start: 02-25-2024 End: 03-11-2024 Telephone encounter Vicente Roach MD Work Phone: Orthopaedics Comment on above: Patient Question Start: 02-25-2024 End: 02-25-2024 ambulatory Endy Curran PT [employer] [facility] [place] Comment on above: Left hip pain (Prima ry Dx); Radiculopathy, lumbar region; Decreased ROM of lumbar spine; Weakness of trunk musculature Start: 02-23-2024 End: 02-23-2024 ambulatory ARSALAN OCAMPO Facility:[facility] Start: 02-23-2024 End: 02-23-2024 Patient encounter procedure Vicente Roach MD Work Phone: Orthopaedics Comment on above: Osteoarthritis of sp ine with radiculopathy, lumbar region (Primary Dx); Chronic left hip pain; Right hip pain Start: 02-20-2024 End: 02-20-2024 ambulatory Jose David Cedeno PRESS SUPERVISOR [employer] [facility] [place] Comment on above: Left hip pain (Prima ry Dx); Radiculopathy, lumbar region; Decreased ROM of lumbar spine; Weakness of trunk musculature Start: 02-18-2024 End: 02-18-2024 ambulatory Roseanna Braden Hughes PRESS SUPERVISOR [employer] [facility] [place] Comment on above: Left hip pain (Prima ry Dx); Radiculopathy, lumbar region; Decreased ROM of lumbar spine; Weakness of trunk musculature Start: 02-18-2024 End: 02-18-2024 ambulatory Injection Ryne [facility] Work Phone: Hematology/Oncology Comment on above: 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); Prostate cancer (HCC) Start: 02-16-2024 End: 02-16-2024 ambulatory López Ocampo Facility:[facility] Start: 02-16-2024 End: 02-16-2024 ambulatory Rohit Crawford Facility:[facility] Start: 02-13-2024 End: 02-13-2024 ambulatory 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 PRESS SUPERVISOR [facility] [place] Comment on above: Left hip pain (Prima ry Dx); Radiculopathy, lumbar region; Decreased ROM of lumbar spine; Weakness of trunk musculature Start: 02-11-2024 End: 02-11-2024 ambulatory Roseanna Braden Ellen PRESS SUPERVISOR [facility] [place] Comment on above: Left hip pain (Prima ry Dx); Radiculopathy, lumbar region; Decreased ROM of lumbar spine; Weakness of trunk musculature Start: 02-10-2024 End: 02-10-2024 Refill Dereje Herring MD Work Phone: Hematology/Oncology Comment on above: Refill Request Start: 02-09-2024 End: 02-09-2024 ambulatory Arsalan Ocampo MD Work Phone: [facility] Comment on above: medical history Start: 02-05-2024 End: 02-05-2024 Telephone encounter Arsalan Ocampo MD Work Phone: [facility] Comment on above: Insurance Authorizat ion (cyclobenzaprine) Start: 02-05-2024 End: 02-06-2024 ambulatory Rohit Crawford Facility:[facility] Start: 02-03-2024 End: 02-03-2024 ambulatory ARSALAN OCAMPO Facility:[facility] Start: 02-03-2024 End: 02-03-2024 Telephone encounter Arsalan Ocampo MD Work Phone: [facility] Comment on above: Results Start: 02-03-2024 End: 02-03-2024 Subsequent hospital visit by physician Us [facility] Work Phone: Radiology Comment on above: Left inguinal pain [ R10.32] Start: 02-03-2024 End: 02-03-2024 Patient encounter procedure Arsalan Ocampo MD Work Phone: Family [facility] [place] Comment on above: Left inguinal pain ( Primary Dx); Spinal stenosis of lumbar region, unspecified whether neurogenic claudication present Start: 02-03-2024 End: 02-03-2024 ambulatory ARSALAN OCAMPO Facility:[facility] Start: 01-29-2024 End: 01-29-2024 ambulatory Endy Curran PT [facility] [place] [facility] [place] Comment on above: Left hip pain (Prima ry Dx); Radiculopathy, lumbar region; Decreased ROM of lumbar spine; Weakness of trunk musculature Start: 01-23-2024 End: 01-23-2024 Telephone encounter Karin ANTHONY Hematology/Oncology Comment on above: Social Work Services Start: 01-21-2024 End: 01-21-2024 Patient encounter procedure Dereje Herring MD Work Phone: Hematology/Oncology Start: 01-21-2024 End: 01-21-2024 [facility] Work Phone: [facility]Oncology Comment on above: 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); Prostate cancer (HCC) Right hip pain (Prim monica Dx); Prostate cancer (HCC); 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) Start: 12-30-2023 End: 12-30-2023 Telephone encounter Catherine Peraza APRN.RANGE SCIENTIST Work Phone: [facility] [place] Comment on above: Results; hip xray re sults Start: 12-24-2023 End: 12-24-2023 Subsequent hospital visit by physician Xr [facility] [place] Work Phone: Radiology Comment on above: Left hip pain [M25.5 52] Start: 12-24-2023 End: 12-24-2023 Patient encounter procedure Catherine Peraza APRN.CNP Work Phone: [facility] [place] Comment on above: Left hip pain (Prima ry Dx) Start: 12-24-2023 End: 12-24-2023 ambulatory ARSALAN OCAMPO Facility:[facility] Start: 12-17-2023 End: 12-17-2023 ambulatory Injection Ryne [facility] Work Phone: Hematology/Oncology Comment on above: Prostate cancer (HCC ) (Primary Dx); 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) Start: 12-11-2023 End: 12-12-2023 Telephone encounter Teefernando Ellis Work Phone: Hematology/Oncology Comment on above: Results Start: 12-11-2023 End: 12-11-2023 Emergency department patient visit Rubén Liu Facility:[facility] Start: 12-10-2023 End: 12-10-2023 ambulatory ARSALAN OCAMPO Facility:[facility] Start: 12-10-2023 End: 12-10-2023 ambulatory ARSALAN OCAMPO Facility:[facility] Start: 12-10-2023 End: 12-10-2023 Subsequent hospital visit by physician Ct Prep [facility] Cat Scan Comment on above: 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, C79.51] Start: 12-04-2023 End: 12-05-2023 ambulatory Dereje Herring MD Work Phone: Hematology/Oncology Comment on above: recurring back pain Start: 12-02-2023 End: 12-02-2023 ambulatory ARSALAN OCAMPO Facility:[facility] Start: 12-02-2023 End: 12-02-2023 Patient encounter procedure Richie Dejesus MD Work Phone: Dermatology Comment on above: Xerosis cutis (Prima ry Dx); Actinic keratosis; Seborrheic keratosis; Lentigines; Cabrera angioma; Multiple benign nevi; Personal history of skin cancer Start: 11-19-2023 End: 11-19-2023 ambulatory Injection Ryne [facility] Work Phone: Hematology/Oncology Comment on above: 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); Prostate cancer (HCC) Start: 11-17-2023 Refill Arsalan Castro MD Work Phone: [facility] Comment on above: Refill Request Start: 11-12-2023 ambulatory ARSALAN OCAMPO Facility:[facility] Start: 11-12-2023 End: 11-12-2023 Subsequent hospital visit by physician [facility] Work Phone: Cardiology Lab Comment on above: SOB (shortness of br eath) [R06.02] Start: 11-12-2023 [facility] Start: 11-12-2023 End: 11-12-2023 Subsequent hospital visit by physician [facility] Work Phone: Molecular Imaging Comment on above: SOB (shortness of br eath) [R06.02] Start: 11-11-2023 Refill Bashir Oliveira Work Phone: Hematology/Oncology Comment on above: [...] 10-16-2023 End: 10-16-2023 Patient encounter procedure Dorcas Champagne DO Work Phone: Cardiology Comment on above: SOB (shortness of br eath) (Primary Dx); Abnormal ECG; Chest pain, unspecified type; Mixed hyperlipidemia Start: 10-16-2023 End: 10-16-2023 ambulatory ARSALAN OCAMPO Facility:[facility] Start: 10-16-2023 Telephone encounter Dorcas Champagne DO Work Phone: Cardiology Comment on above: Appointment Start: 10-03-2023 Refill Dereje khan MD Work Phone: Hematology/Oncology Comment on above: Refill Request Start: 10-02-2023 End: 10-02-2023 ambulatory Injection Ryne [facility] Work Phone: Hematology/Oncology Comment on above: Prostate cancer (HCC ) (Primary Dx) Start: 09-24-2023 End: 09-24-2023 ambulatory Injection Ryne [facility] Work Phone: Hematology/Oncology Comment on above: Prostate cancer (HCC ) (Primary Dx); 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) Start: 09-10-2023 Refill Catherine Peraza TISSUE TECHNICIAN.RANGE SCIENTIST Work Phone: [facility] Comment on above: Refill Request Start: 08-27-2023 Telephone encounter Dereje dallas MD Work Phone: Hematology/Oncology Comment on above: Patient Update (richar stephen) Start: 08-27-2023 End: 08-27-2023 ambulatory Injection Ryne [facility] Work Phone: Hematology/Oncology Comment on above: Prostate cancer (HCC ) (Primary Dx); 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) Start: 08-13-2023 Refill Sanjeev tinajero TISSUE TECHNICIAN.RANGE SCIENTIST Work Phone: Hematology/Oncology Comment on above: Refill Request Start: 08-04-2023 Telephone encounter Juanito Ybarra i, MD Work Phone: Cardiology Comment on above: Appointment Start: 07-31-2023 End: 07-31-2023 ambulatory Injection Ryne [facility] Work Phone: Hematology/Oncology Comment on above: 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); Prostate cancer (HCC) Start: 07-30-2023 Orders Only Dereje khan MD Work Phone: Hematology/Oncology Start: 06-17-2023 End: 06-17-2023 Refill Arsalan Ocampo MD Work Phone: [facility] Comment on above: Refill Request Results SOB (shortness of br eath) [R06.02] Start: 06-16-2023 Telephone encounter Sahara arriaga video editing intern Lab Comment on above: Reminder Call Start: 06-11-2023 Telephone encounter López Ocampo MD Work Phone: [facility] Comment on above: Results Start: 06-11-2023 End: 06-11-2023 Subsequent hospital visit by physician Xr [facility] [place] Work Phone: Radiology Comment on above: SOB (shortness of br eath) [R06.02] Start: 06-11-2023 End: 06-11-2023 Patient encounter procedure Catherine Peraza APRN.RANGE SCIENTIST Work Phone: [facility] Comment on above: SOB (shortness of br eath) (Primary Dx); Chest pain, unspecified type; Acute left-sided low back pain, unspecified whether sciatica present Start: 06-06-2023 Telephone encounter Dereje dallas MD Work Phone: Hematology/Oncology Comment on above: Patient Question Start: 06-05-2023 End: 06-05-2023 [facility] Work Phone: [facility]cology Comment on above: Prostate cancer (HCC ) (Primary Dx); 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) Start: 05-16-2023 Refill Sanjeev tinajero APRN.RANGE SCIENTIST Work Phone: Hematology/Oncology Comment on above: Refill Request Start: 05-08-2023 End: 05-08-2023 ambulatory Injection Ryne [facility] Work Phone: Hematology/Oncology Comment on above: Prostate cancer (HCC ) (Primary Dx) Start: 03-17-2023 ambulatory Arsalan Ocampo MD Work Phone: [facility] Comment on above: blood test results Start: 03-17-2023 Telephone encounter López Ocampo MD Work Phone: [facility] Comment on above: Results Start: 03-13-2023 Telephone encounter Natalya gastelum RN Work Phone: Hematology/Oncology Comment on above: Patient Update (Richar stephen order) Start: 03-13-2023 End: 03-13-2023 ambulatory Injection Ryne [facility] Work Phone: Hematology/Oncology Comment on above: Prostate cancer (HCC ) (Primary Dx) Start: 02-18-2023 Refill [place] Carpente r TISSUE TECHNICIAN.RANGE SCIENTIST Work Phone: Hematology/Oncology Comment on above: Refill Request Start: 02-13-2023 End: 02-13-2023 ambulatory Injection Ryne [facility] Work Phone: Hematology/Oncology Comment on above: Prostate cancer (HCC ) (Primary Dx) Start: 01-21-2023 ambulatory Arsalan Ocampo MD Work Phone: [facility] Comment on above: vaccinations on Mych art Start: 01-16-2023 End: 01-16-2023 ambulatory Injection Ryne [facility] Work Phone: Hematology/Oncology Comment on above: Prostate cancer (HCC ) (Primary Dx) Start: 01-15-2023 ambulatory [place] Carpente r TISSUE TECHNICIAN.RANGE SCIENTIST Work Phone: Hematology/Oncology Comment on above: calcium supplement Start: 01-14-2023 Refill Dereje khan MD Work Phone: Hematology/Oncology Comment on above: Refill Request Start: 12-19-2022 End: 12-19-2022 ambulatory Injection Ryne [facility] Work Phone: Hematology/Oncology Comment on above: Prostate cancer (HCC ) (Primary Dx) Start: 11-27-2022 End: 11-27-2022 Patient encounter procedure Richie Dejesus MD Work Phone: Dermatology Comment on above: Seborrheic keratosis (Primary Dx); Cabrera angioma; Lentigines; Multiple benign nevi; Actinic keratosis; Personal history of skin cancer; Senile purpura (HCC) Start: 11-21-2022 End: 11-21-2022 ambulatory Injection Ryne [facility] Work Phone: Hematology/Oncology Comment on above: Prostate cancer (HCC ) (Primary Dx) Start: 11-20-2022 Refill Sanjeev tinajero TISSUE TECHNICIAN.RANGE SCIENTIST Work Phone: Hematology/Oncology Comment on above: Refill Request Start: 11-19-2022 End: 11-19-2022 Patient encounter procedure Derrek Baker PA-C Work Phone: General Surgery Comment on above: Hemorrhoids, unspeci fied hemorrhoid type (Primary Dx); Perianal cyst Start: 10-24-2022 End: 10-24-2022 [facility] Work Phone: [facility]cology Comment on above: Prostate cancer (HCC ) (Primary Dx) Start: 10-14-2022 End: 10-14-2022 ambulatory [facility] Work Phone: H[facility]/Oncology Comment on above: Prostate cancer (HCC ) (Primary Dx) Start: 09-30-2022 ambulatory Arsalan Ocampo MD Work Phone: [facility] Comment on above: Tetanus (Tdap) shot Start: 09-26-2022 End: 09-26-2022 ambulatory Injection Ryne [facility] Work Phone: Hematology/Oncology Comment on above: Prostate cancer (HCC ) (Primary Dx) Start: 09-23-2022 End: 09-23-2022 Emergency department patient visit ARSALAN OCAMPO MD Facility:B Start: 09-23-2022 End: 09-23-2022 Emergency department patient visit DR PERFECTO GERBER MD [facility] Start: 08-19-2022 Telephone encounter Sanjeev cruz APRN.RANGE SCIENTIST Work Phone: Hematology/Oncology Comment on above: Lab Orders Start: 08-16-2022 End: 08-16-2022 ambulatory Sanjeev Aranda TISSUE TECHNICIAN.RANGE SCIENTIST Work Phone: Hematology/Oncology Comment on above: 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); 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) Start: 08-16-2022 End: 08-16-2022 Patient encounter procedure Sanjeev Aranda APRN.RANGE SCIENTIST Work Phone: [facility] Start: 08-12-2022 Refill Bashir Polanco O Work Phone: Hematology/Oncology Comment on above: Refill Request; Refi ll Request Start: 08-01-2022 End: 08-01-2022 Nursing evaluation of patient and report [facility] Work Phone: Urology Comment on above: Prostate cancer (HCC ) (Primary Dx) Start: 05-30-2022 End: 05-30-2022 Nursing evaluation of patient and report Nurse [facility] Work Phone: Urology Comment on above: Prostate cancer (HCC ) (Primary Dx) Start: 05-17-2022 End: 05-17-2022 Patient encounter procedure Richie Dejesus MD Work Phone: Dermatology Comment on above: Actinic keratosis (P rimary Dx) Start: 05-08-2022 Telephone encounter Odalis farrar [facility] Work Phone: Genetic Healthcare Comment on above: Results (Genetic soha t results - negative) Start: 04-26-2022 End: 04-26-2022 ambulatory SP MCKEON Facility:[facility] Start: 04-26-2022 End: 04-26-2022 Patient encounter [...] Nursing evaluation of patient and report Nurse Manny Paul Work Phone: Urology Comment on above: Prostate cancer (HCC ) (Primary Dx) Start: 03-08-2022 End: 03-08-2022 ambulatory Derrek Baker [facility] Work Phone: General Surgery Comment on above: Chronic superficial gastritis without bleeding (Primary Dx); Gastroesophageal reflux disease with esophagitis without hemorrhage; Family history of colon cancer Start: 03-08-2022 End: 03-08-2022 Telemedicine consultation with patient Derrek Baker [facility] Work Phone: [facility] Start: 03-06-2022 Telephone encounter López Ocampo MD Work Phone: [facility] Comment on above: Results Start: 02-27-2022 End: 02-27-2022 Subsequent hospital visit by physician Lyn Mcgowan MD Work Phone: Ambulatory Surgery Comment on above: History of colon deidre yps [Z86.010] Start: 02-21-2022 End: 02-21-2022 Nursing evaluation of patient and report Nurse Manny Paul Work Phone: Urology Comment on above: Prostate cancer (HCC ) (Primary Dx) Start: 02-14-2022 End: 02-14-2022 ambulatory Lillian Clemente MD Work Phone: Hematology/Oncology Comment on above: 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); 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); Bone metastasis (HCC); Family history of prostate cancer in father Start: 02-14-2022 End: 02-14-2022 Patient encounter procedure Lillian Clemente MD Work Phone: [facility] Start: 01-22-2022 ambulatory Arsalan Ocampo MD Work Phone: [facility] Comment on above: Flu Shot Start: 01-19-2022 Refill Lillian Clemente MD Work Phone: Hematology/Oncology Comment on above: Refill Request Start: 01-02-2022 Refill Lillian Clemente MD Work Phone: Hematology/Oncology Comment on above: Refill Request Start: 12-13-2021 End: 12-13-2021 Nursing evaluation of patient and report [facility] Work Phone: Urology Comment on [...] Nursing evaluation of patient and report Nurse [facility] Work Phone: Urology Comment on above: Prostate cancer (HCC ) (Primary Dx) Start: 11-13-2021 End: 11-13-2021 Patient encounter procedure Arsalan Ocampo MD Work Phone: [facility] Comment on above: Prostate cancer (HCC ) (Primary Dx); Bone metastasis (HCC); Benign prostatic hyperplasia, unspecified whether lower urinary tract symptoms present; 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); Gastroesophageal reflux disease, unspecified whether esophagitis present; History of skin cancer; Screening for colon cancer Start: 10-11-2021 End: 10-11-2021 Nursing evaluation of patient and report Nurse [facility] Work Phone: Urology Comment on above: Prostate cancer (HCC ) Start: 10-05-2021 ambulatory Sp braden DO Work Phone: Urology Comment on above: Billing Number Start: 10-05-2021 E-mail encounter chacho braden caregiver Sp Mckeon DO [facility] Start: 09-05-2021 End: 09-05-2021 ambulatory SP MCKEON Facility:[facility] Start: 09-05-2021 End: 09-05-2021 Patient encounter procedure Sp Mckeon DO Work Phone: [facility] Comment on above: BPH with elevated PS A Start: 09-04-2021 ambulatory Jazlyn LOMBARDI III Facili ty:[facility] Start: 09-04-2021 End: 09-05-2021 Office outpatient new 60 minutes Jazlyn Lombardi MD Work Phone: Division of Medical Oncology at [facility] Comment on above: Prostate cancer (Jessica sherri [...] encounter procedure Lillian Clemente MD 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, C79.51] Start: 08-24-2021 End: 08-24-2021 Subsequent hospital visit by physician Injection Nm [facility] Work Phone: Nuclear Medicine Start: 08-16-2021 End: 08-16-2021 Nursing evaluation of patient and report Nurse Urol Roro Work Phone: Urology Comment on above: Prostate cancer (HCC ) (Primary Dx) Start: 07-25-2021 Refill Luther horner MD Work Phone: [facility] Comment on above: Refill Request Start: 07-23-2021 Telephone encounter Natalya gastelum RN Work Phone: Hematology/Oncology Comment on above: Opened In Error Refill Request Start: 07-19-2021 End: 07-19-2021 Nursing evaluation of patient and report Nurse Manny Paul Mc Work Phone: Urology Comment on above: Prostate [...] Request Start: 02-14-2017 End: 02-14-2017 Ambulatory DORCAS Jay DANTIFF Facility:[facility] Procedures Date Procedure Procedure Detail Performing Clinician Start: 09-28-2024 Mri brain brain stem w/o w/contrast material Bashir Varela DO Work Phone: Start: 09-22-[address] Cesar Ocampo MD Work Phone: Start: 09-22-2024 Lymphocyte percent differential count Dr. López Ocampo MD Work Phone: Start: 09-21-[address] Elian Ocampo MD Work Phone: Start: 09-20-[address] López Ocampo MD Work Phone: Start: 09-20-2024 Blood disorder - initial assessment Dr. López Ocampo MD Work Phone: Start: 09-19-[address] Greg Ocampo MD Work Phone: Start: 09-19-[address] López Ocampo MD Work Phone: Start: 09-19-2024 Iadna-dna/rna gi pthgn multiplex probe tq 6-11 Dr. López Ocampo MD Work Phone: Start: 09-19-2024 Computed tomography of abdomen and pelvis with contrast Dr. López Ocampo MD Work Phone: Start: 09-18-[address] López Ocampo MD Work Phone: Start: 09-18-2024 SARS-CoV-2, Influenza & RSV (PCR) Dr. Debra Ocampo MD Work Phone: Start: 09-18-[address] López Ocampo MD Work Phone: Start: 09-18-2024 Urnls dip stick/tablet reagent auto microscopy Dr. López Ocampo MD Work Phone: Start: 09-18-2024 Plain chest X-ray Dr. López Ocampo MD Work Phone: Start: 09-18-[address] Cesar Ocampo MD Work Phone: Start: 08-26-2024 Echocardiography ARSALAN OCAMPO Start: 08-09-2024 Ecg routine ecg w/least 12 [...] studies Christos Champagne DO Work Phone: Start: 03-12-2024 Cv strs tst xers&/or rx cont ecg trcg only Catherine Zieglerlogluba TISSUE TECHNICIAN.RANGE SCIENTIST Work Phone: Start: 06-11-2023 Radiologic exam chest 2 views Catherine tapia TISSUE TECHNICIAN.RANGE SCIENTIST Work Phone: Start: 06-11-2023 Lipid 1996 panel - Serum or Plasma Catherine Peraza TISSUE TECHNICIAN.RANGE SCIENTIST Work Phone: Start: 03-13-2023 Lipid 1996 panel [...] 1996 panel - Serum or Plasma Injec tion Wstr Work Phone: Start: 02-10-2017 Colonoscopy Lillian Clemente MD Work Phone: Tonsillectomy DR PERFECTO GERBER MD Plan of Treatment Date Care Activity Detail Author Start: 09-23-2032 Urine microalbumin profile [facility] Start: 10-12-2028 Urine microalbumin profile DTAP,TDAP,TD (3 - Td or Tdap) [facility] Start: 06-10-2028 Lipid panel Lipid Screening [facility] Start: 03-13-2028 Lipid 1996 panel - Serum or Plasma Lipid Screening [facility] Start: 03-13-2028 Lipid panel Lipid Screening [facility] Start: 10-01-2027 Diabetes Screening Diabetes Screening [facility] Start: 09-09-2027 Diabetes Screening Diabetes Screening [facility] Start: 08-12-2027 Diabetes Screening Diabetes Screening [facility] Start: 07-15-2027 Diabetes Screening Diabetes Screening [facility] Start: 06-17-2027 Diabetes Screening Diabetes Screening [facility] Start: 05-12-2027 Diabetes Screening Diabetes Screening [facility] Start: 04-14-2027 Diabetes Screening Diabetes Screening [facility] Start: 03-17-2027 Diabetes Screening Diabetes Screening [facility] Start: 02-27-2027 Colonoscopy COLONOSCOPY [facility] Start: 02-27-2027 COLORECTAL CANCER SCREENING COLORECTAL CANCER SCREENING [facility] Start: 02-27-2027 Screening for malignant neoplasm of colon [facility] Start: 02-17-2027 Diabetes Screening Diabetes Screening [facility] Start: 02-12-2027 PROSTATE CANCER SCREENING DISCUSSION PROSTATE CANCER SCREENING DISCUSSION [facility] Start: 01-20-2027 Diabetes Screening Diabetes Screening [facility] Start: 12-16-2026 Diabetes Screening Diabetes Screening [facility] Start: 11-20-2026 PROSTATE CANCER SCREENING DISCUSSION PROSTATE CANCER SCREENING DISCUSSION [facility] Start: 11-18-2026 Diabetes Screening Diabetes Screening [facility] Start: 10-21-2026 Diabetes Screening Diabetes Screening [facility] Start: 09-23-2026 Diabetes Screening Diabetes Screening [facility] Start: 08-26-2026 Diabetes Screening Diabetes Screening [facility] Start: 08-24-2026 PROSTATE CANCER SCREENING DISCUSSION PROSTATE CANCER SCREENING DISCUSSION [facility] Start: 07-30-2026 Diabetes Screening Diabetes Screening [facility] Start: 06-10-2026 Diabetes Screening Diabetes Screening [facility] Start: 06-04-2026 Diabetes Screening Diabetes Screening [facility] Start: 05-28-2026 PROSTATE CANCER SCREENING DISCUSSION PROSTATE CANCER SCREENING DISCUSSION [facility] Start: 04-16-2026 Diabetes Screening Diabetes Screening [facility] Start: 03-13-2026 Diabetes Screening Diabetes Screening [facility] Start: 08-07-2025 DIABETES SCREEN DIABETES SCREEN [facility] Start: 08-07-2025 Diabetes Screening Diabetes Screening [facility] Start: 03-10-2025 Depression Screening Depression Screening [facility] Start: 03-10-2025 Medicare Annual Wellness Visit Medicare Annual Wellness Visit [facility] Start: 02-12-2025 DIABETES SCREEN DIABETES SCREEN [facility] Start: 12-28-2024 End: 12-28-[address] [facility] Comment on above: (SO)CBC/BMP(S)* QMO?ARANESP/LAB BAM Y* Start: 12-06-2024 Influenza vaccination Influenza Vaccine (#1) [facility] Start: 11-30-2024 End: 11-30-[address] [facility] Comment on above: (SO)CBC/BMP(S)* QMO?ARANESP/LAB BAM Y* Start: 11-20-2024 DIABETES SCREEN DIABETES SCREEN [facility] Start: 11-03-2024 End: 11-03-2024 ambulatory 11/03/2024 10:45 AM EDT [facility] Hematology/Oncology [address] [place] [address] Wstr, Injection Ryne [facility] [address] [place] [address] QMO?ARANESP/LAB&OV EARLY* Hematology/Oncology Comment on above: QMO?ARANESP/LAB&OV EARLY* Start: 11-03-2024 End: 11-03-[address] [facility] Comment on above: (SO)CBC/BMP(S)* 3 MO OV/LAB EARLY/IN J TODAY* PHIL Start: 11-02-2024 End: 11-02-2024 ambulatory [facility] Comment on above: (SO)CBC/BMP(S)* 3 MO OV/LAB EARLY/IN J TODAY* PHIL r/s from 11/03 QMO?ARANESP/LAB&OV E DARREN* Start: 10-27-2024 End: 10-27-2024 Patient encounter procedure 10/27/2024 10:45 AM EDT Office Visit General Surgery [address] [place] [address] Felix Al MD [address] [place] [address] Follow up US and labs General Surgery Comment on above: Follow up US and labs Start: 10-22-2024 End: 10-22-2024 Patient encounter procedure 10/22/2024 11:15 AM EDT Appointment Radiology [address] [place] [address] Cholangitis (HCC) [K83.09]; Sepsis with acute organ dysfunction and septic shock, due to unspecified organism, unspecified organ dysfunction type (HCC) [A41.9, R65.21 Radiology Comment on above: Cholangitis (HCC) [K83.09]; Sepsis with acute organ dysfunction and septic shock, due to unspecified organism, unspecified organ dysfunction type (HCC) [A41.9, R65.21 Start: 10-22-2024 End: 10-22-2024 ambulatory 10/22/2024 11:00 AM EDT Results Only [facility] [address] [place] [address] lab [facility] Comment on above: lab Start: 10-15-2024 End: 10-15-2024 Patient encounter procedure 10/15/2024 9:20 AM EDT Office Visit Dermatology [address] [place] [address] Jose Gonzalez APRN.RANGE SCIENTIST [address] [place] [address] FBSE/Dr. Dejesus resched Dermatology Comment on above: FBSCora/Dr. Dejesus resched Start: 10-14-2024 End: 01-13-2025 CBC W Auto Differential panel - Blood COMPLETE BLOOD COUNT AND DIFFERENTIAL Lab Routine Cholangitis (HCC) Sepsis with acute organ dysfunction and septic shock, due to unspecified organism, unspecified organ dysfunction type (HCC) Expected: 10/14/2024, Expires: 01/13/2025 [facility] Work Phone: Comment on above: Expected: 10/14/2024, Expires: Start: 10-14-2024 End: 01-13-2025 Comprehensive metabolic 2000 panel - Serum or Plasma COMPREHENSIVE METABOLIC PANEL Lab Routine Cholangitis (HCC) Sepsis with acute organ dysfunction and septic shock, due to unspecified organism, unspecified organ dysfunction type (HCC) Expected: 10/14/2024, Expires: 01/13/2025 [facility] Comment on above: Expected: 10/14/2024, Expires: Start: 10-13-2024 End: 10-13-2024 Patient encounter procedure General Surgery Comment on above: Cholangitis (HCC) [K83.09] Cholangitis (HCC) [K 83.09] [facility] Start: 10-12-2024 End: 10-12-2024 Patient encounter procedure 10/12/2024 10:00 AM EDT Office Visit Otolaryngology [address] [address] Deshaun Santizo MD [address] [place], [place] [id number] new patient- referral from Dr. Rachel Burkett Otolaryngology Comment on above: new patient- referral from Dr. Rachel harrington Start: 10-06-2024 End: 10-06-2024 ambulatory [facility] Comment on above: (SO)CBC/BMP(S)* QMO?ARANESP/QMO XGEV A/LAB EARLY* Start: 10-05-2024 End: 10-05-2024 ambulatory [facility] Comment on above: (SO)CBC/BMP(S)* QMO?ARANESP/LAB BAM Y* Start: 10-01-2024 End: 10-01-2024 Nursing evaluation of patient and report 10/01/2024 9:20 AM EDT Nurse Visit Dermatology [address] [place] [address] Nurse, Derm Surgery [address] [facility], [place] [id number] wound check/surgeon to see Dermatology Comment on above: wound check/surgeon to see Start: 09-30-2024 End: 09-30-2024 ambulatory 09/30/2024 3:20 PM EDT Visit (SP) Office Hematology/Oncology [address] [place] [address] Dereje Herring MD [address] [place] [address] OV/PER TE 09/23* Hematology/Oncology Comment on above: OV/PER TE 09/23* Start: 09-30-2024 End: 09-30-2024 Patient encounter procedure Dermatology Comment on above: fbsc per surgery FBSE Start: 09-22-2024 Patient discharge [facility] Start: 09-21-2024 Referral to general surgeon [facility] Start: 09-20-2024 Blood culture Blood Culture [facility] Start: 09-20-2024 Wound care [facility] Start: 09-20-2024 Referral to occupational therapist [facility] Start: 09-20-2024 Referral to service [facility] Start: 09-20-2024 [facility] Start: 09-20-2024 Administration of blood product [facility] Start: 09-18-2024 Chemotherapy care management [facility] Start: 09-18-2024 Following clinical pathway protocol [facility] Start: 09-18-2024 Transfusion of blood product [facility] Start: 09-18-2024 Assessment of risk of venous thromboembolism [facility] Start: 09-18-2024 Consultation for treatment [facility] Start: 09-18-2024 Continuous pulse oximetry [facility] Start: 09-18-2024 Insertion of catheter into peripheral vein [facility] Start: 09-18-2024 Measuring intake and output [facility] Start: 09-18-2024 Providing care according to standard [facility] Start: 09-18-2024 Vital signs measurements [facility] Start: 09-18-2024 [facility] Start: 09-18-2024 Verification routine [facility] Start: 09-18-2024 Admission procedure [facility] Start: 09-18-2024 [facility] Start: 09-18-2024 Bacteria identified in Blood by Culture Blood Culture [facility] Start: 09-18-2024 Bacteria identified in Urine by Culture Urine Culture [facility] Start: 09-18-2024 Blood culture Blood Culture [facility] Start: 09-18-2024 End: 09-18-2024 [facility] Start: 09-18-2024 Patient referral to dietitian [facility] Start: 09-15-2024 End: 09-15-2024 Nursing evaluation of patient and report 09/15/2024 9:40 AM EDT Nurse Visit Dermatology [address] [place] [address] Nurse, Derm Surgery [address] [place] [address] wound check/DA to see Dermatology Comment on above: wound check/DA to see Start: 09-09-2024 End: 09-09-2024 ambulatory 09/09/2024 9:45 AM EDT Infusion Center Hematology/Oncology [address] [place], [place] [id number] Wstr, Injection Ryne [facility] [address] [place] [address] ELIGUARD* Hematology/Oncology Comment on above: HERMILO* Start: 09-08-2024 End: 12-08-2024 Cobalamin (Vitamin B12) [Mass/volume] in Serum or Plasma VITAMIN B12 Lab Routine 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) Expected: 09/08/2024, Expires: 12/08/2024 [facility] Work Phone: Comment on above: Expected: 09/08/2024, Expires: Start: 09-08-2024 End: 12-08-2024 Folate [Mass/volume] in Serum or Plasma FOLATE, SERUM Lab Routine 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) Expected: 09/08/2024, Expires: 12/08/2024 [facility] Comment on above: Expected: 09/08/2024, Expires: Start: 09-08-2024 End: 12-08-2024 RETICULOCYTE COUNT RETICULOCYTE COUNT Lab Routine 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) Expected: 09/08/2024, Expires: 12/08/2024 [facility] Comment on above: Expected: 09/08/2024, Expires: Start: 09-08-2024 End: 09-08-2024 ambulatory [facility] Laboratory Comment on above: (SO)CBC/BMP(S)* QMO?ARANESP/QMO XGEV A/LAB EARLY/MDCR* QMO?ARANESP/QMO XGEV A/LAB EARLY* QMO?ARANESP/LAB BAM Y* OV/LAB&INJ EARLY* Start: 08-26-2024 End: 08-26-2024 Patient encounter procedure 08/26/2024 9:40 AM EDT Office Visit Cardiology [address] [place] [address] ECHO Cardiology Comment on above: ECHO Start: 08-24-2024 DIABETES SCREEN DIABETES SCREEN [facility] Start: 08-11-2024 End: 08-11-2024 ambulatory [facility] Laboratory Comment on above: (SO)CBC/BMP(S)* 3 MO OV/LAB EARLY/IN J TODAY* QMO?ARANESP/QMO XGEV A/LAB&OV EARLY/MDCR* Start: 08-09-2024 End: 08-09-2024 Patient encounter procedure 08/09/2024 3:30 PM EDT Office Visit Cardiology [address] [phone] Candace Guerra APRN.RANGE SCIENTIST [address] [place], [place] [phone] DX: SOB (shortness of breath) [R06.02]; Chest pain, unspecified type Cardiology Comment on above: DX: SOB (shortness of breath) [R06.02]; Chest pain, unspecified type Start: 07-14-2024 End: 07-14-[address] [facility] Comment on above: (SO)CBC/BMP(S)* QMO?ARANESP/QMO XGEV A/LAB EARLY/MDCR* Start: 07-09-2024 Covid-19 Vaccine () Covid-19 Vaccine () [facility] Start: 07-07-2024 End: 07-07-2024 Nursing evaluation of patient and report 07/07/2024 9:00 AM EDT Nurse Visit Dermatology [address] [place] [address] Nurse, Derm Surgery [address] [place] [address] suture removal Dermatology Comment on above: suture removal Start: 06-25-2024 End: 06-25-2024 Patient encounter procedure 06/25/2024 10:30 AM EDT Office Visit Cardiology [address] [phone] Candace Guerra APRN.RANGE SCIENTIST [address] [place], [place] [phone] DX: SOB (shortness of breath) [R06.02]; Chest pain, unspecified type Cardiology Comment on above: DX: SOB (shortness of breath) [R06.02]; Chest pain, unspecified type Start: 06-24-2024 End: 06-24-2024 Patient encounter procedure 06/24/2024 9:30 AM EDT Office Visit Radiation Oncology [address] [place] [address] Suresh Hodges MD [address] [place] [address] DENTAL INSURANCE COORDINATOR/SKIN 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 BRONSON/THIS DATE AND TIME PER PATIENT Radiation Oncology Comment on above: DENTAL INSURANCE COORDINATOR/SKIN 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 KIRTI SAUNDERS/THIS DATE AND TIME PER PATIENT Start: 06-18-2024 End: 06-18-2024 Patient encounter procedure 06/18/2024 8:45 AM EDT Office Visit Dermatology [address] [place] [address] Richie Dejesus MD [address] [place] [address] receck a couple of spots/possible bx Dermatology Comment on above: receck a couple of spots/possible bx Start: 06-17-2024 End: 06-17-2024 Patient encounter procedure Dermatology Comment on above: Mohs: Mohs: SCC right pechanga n scalp, 2 pts Start: 06-16-2024 End: 06-16-2024 ambulatory [facility] Laboratory Comment on above: (SO)CBC/BMP(S)* QMO?ARANESP/QMO XGEV A/LAB EARLY/MDCR* pt requested date Start: 06-16-2024 End: 06-16-2024 Patient encounter procedure 06/16/2024 8:45 AM EDT Office Visit Dermatology [address] [place], [place] [phone] Madelaine Bronson MD [address] [place] [address] Mohs: SCC right crown scalp, 4 pts Dermatology Comment on above: Mohs: SCC right crown scalp, 4 pts Start: 05-28-2024 DIABETES SCREEN DIABETES SCREEN [facility] Start: 05-12-2024 End: 05-12-2024 ambulatory [facility] Laboratory Comment on above: (SO)CBC/BMP(S)* QMO?ARANESP/QMO XGEV A/LAB EARLY/MDCR* Start: 05-10-2024 End: 05-10-2024 Patient encounter procedure 05/10/2024 2:30 PM EST Office Visit Pain Management [address] [address] Bashir Mcmahon MD [address] [facility] [place] [address] Osteoarthritis of spine with radiculopathy, lumbar region [M47.26] Pain Management Comment on above: Osteoarthritis of spine with radiculopat hy, lumbar region [M47.26] Start: 04-28-2024 End: 04-28-2024 Patient encounter procedure 04/28/2024 9:00 AM EST Office Visit Pain Management [address] [id number] Bashir Mcmahon MD [address] [facility] [place] [address] Osteoarthritis of spine with radiculopathy, lumbar region [M47.26] Pain Management Comment on above: Osteoarthritis of spine with radiculopat hy, lumbar region [M47.26] Start: 04-15-2024 End: 04-15-2024 Patient encounter procedure 04/15/2024 10:30 AM EST Office Visit Cardiology [address] [address] Candace Guerra APRN.RANGE SCIENTIST [address] [place] [address] 6 month follow up Cardiology Comment on above: 6 month follow up Start: 04-14-2024 End: 04-14-2024 ambulatory Smiley Armando [facility] Laboratory Comment on above: (SO)CBC/BMP(S)* QMO?ARANESP/QMO XGEV A/LAB EARLY/MDCR* Start: 04-07-2024 Advance Directive Discussion Advance Directive Discussion [facility] Start: 04-01-2024 End: 04-01-2024 ambulatory 04/01/2024 2:15 PM EST OT/PT/Speech Visit [facility] [address] [place] [address] Endy Curran, PT left hip [facility] Comment on above: left hip Start: 03-24-2024 End: 03-24-2024 ambulatory 03/24/2024 2:15 PM EST OT/PT/Speech Visit [facility] [address] [place] [address] Endy Curran, PT left hip pain [facility] Comment on above: left hip pain Start: 03-19-2024 End: 03-19-2024 ambulatory 03/19/2024 3:00 PM EST OT/PT/Speech Visit [facility] [address] [place] [address] Endy Curran, PT left hip pain [facility] Comment on above: left hip pain Start: 03-19-2024 End: 03-19-2024 Patient encounter procedure 03/19/2024 10:45 AM EST Office Visit Dermatology [address] [place] [address] Richie Dejesus MD [address] [place] [address] Ak followo up Dermatology Comment on above: Ak followo up Start: 03-18-2024 End: 03-18-2024 ambulatory Hematology/Oncology Comment on above: Q6MO LUPRON/MDCR* (SO)CBC/BMP(S)* (SO)CBC/BMP(S)/QMO?A RANESP/QMO XGEVA/Q6MO LUPRON/MDCR* - this date per patient Start: 03-17-2024 End: 03-17-2024 ambulatory [place] [facility] Laboratory Comment on above: (SO)CBC/BMP(S)* (SO)CBC/BMP(S)/QMO?A RANESP/QMO XGEVA/Q6MO LUPRON/MDCR* - this date per patient QMO?ARANESP/QMO XGEV A/Q6MO LUPRON/LAB EARLY/MDCR* - this date per patient Start: 03-16-2024 End: 03-16-2024 ambulatory 03/16/2024 2:00 PM EST OT/PT/Speech Visit [facility] [address] [place] [address] 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 M, PRESS SUPERVISOR left hip pain [facility] Comment on above: left hip pain Start: 03-12-2024 End: 03-12-2024 ambulatory 03/12/2024 11:45 AM EST OT/PT/Speech Visit [facility] [place] [address] [place] [address] 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 M, PRESS SUPERVISOR left hip pain [facility] Comment on above: left hip pain Start: 03-10-2024 End: 03-10-2024 Patient encounter procedure 03/10/2024 9:00 AM EST Office Visit [facility] [place] [address] [facility] [place] [address] Catherine Peraza APRN.RANGE SCIENTIST [address] [place] [address] medicare wellness [facility] [place] Comment on above: medicare wellness Start: 03-02-2024 End: 03-02-2024 ambulatory 03/02/2024 2:45 PM EST OT/PT/Speech Visit [facility] [address] [place] [address] 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, PRESS SUPERVISOR left hip pain [facility] Comment on above: left hip pain Start: 02-27-2024 End: 02-27-2024 ambulatory 02/27/2024 11:45 AM EST OT/PT/Speech Visit [facility] [address] [place] [address] 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, PRESS SUPERVISOR Left hip pain [facility] Comment on above: Left hip pain Start: 02-25-2024 End: 02-25-2024 ambulatory [facility] Comment on above: Left hip pain Left hip pain re- eval Start: 02-24-2024 End: 02-24-2024 Patient encounter procedure 02/24/2024 2:15 PM EST Office Visit Orthopaedics [address] [address] Vicente Roach MD [address] [place] [address] Left Hip Pain Orthopaedics Comment on above: Left Hip Pain Start: 02-23-2024 End: 02-23-2024 Patient encounter procedure 02/23/2024 4:15 PM EST Office Visit Orthopaedics [address] [place] [address] Vicente Roach MD [address] [place], [place] [id number] Left Hip Pain Orthopaedics Comment on above: Left Hip Pain Start: 02-20-2024 End: 02-20-2024 ambulatory 02/20/2024 11:45 AM EST OT/PT/Speech Visit [facility] [address] [place] [address] CiccarJose David nam M, PRESS SUPERVISOR Left hip pain [facility] Comment on above: Left hip pain Start: 02-18-2024 End: 02-18-2024 ambulatory 02/18/2024 1:15 PM EST OT/PT/Speech Visit [facility] [address] [place] [address] 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, PRESS SUPERVISOR Left hip pain [facility] Comment on above: Left hip pain Start: 02-18-2024 End: 02-18-2024 ambulatory [facility] Laboratory Comment on above: (SO)CBC/BMP(S)* (SO)CBC/BMP(S)/QMO?A RANESP/QMO XGEVA/MDCR* Start: 02-13-2024 End: 02-13-2024 ambulatory 02/13/2024 11:45 AM EST OT/PT/Speech Visit [facility] [address] [place] [address] 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, PRESS SUPERVISOR Left hip pain [facility] Comment on above: Left hip pain Start: 02-11-2024 End: 02-11-2024 ambulatory [facility] Comment on above: (SO)CBC/BMP(S)* (SO)CBC/BMP(S)/QMO?A RANESP/QMO XGEVA/MDCR* Left hip pain Start: 02-03-2024 End: 02-03-2024 Patient encounter procedure 02/03/2024 10:00 AM EDT Office Visit Family Medicine [facility] [address] [place], [place] [id number] Arsalan Ocampo MD [address] [place], [place] [id number] medicare wellness [facility] Comment on above: medicare wellness Start: 01-31-2024 RSV Vaccine (1 - 1-dose 60+ series) RSV Vaccine (1 - 1-dose 60+ series) [facility] Comment on above: Postponed from 2013 (Declined at t his time) Start: 01-29-2024 End: 01-29-2024 ambulatory 01/29/2024 9:30 AM EDT OT/PT/Speech Visit [facility] [address] [place] [address] Endy Curran, PT Left hip pain [M25.552] [facility] [place] Comment on above: Left hip pain [M25.552] Start: 01-21-2024 End: 01-21-2024 ambulatory [facility] Comment on above: (SO)CBC/BMP(S)* (SO)CBC/BMP(S)/QMO?A RANESP/QMO XGEVA/MDCR* OV/LABS & INJECTION TODAY* Start: 01-14-2024 End: 01-14-2024 ambulatory [facility] Comment on above: (SO)CBC/BMP(S)* (SO)CBC/BMP(S)/QMO?A RANESP/QMO XGEVA/MDCR* Start: 12-17-2023 End: 12-17-2023 ambulatory [facility] Comment on above: (SO)CBC/BMP(S)* (SO)CBC/BMP(S)/QMO?A RANESP/QMO XGEVA/MDCR* Start: 12-10-2023 End: 12-10-2023 Patient encounter procedure Cat Scan Comment on above: 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, C79.51]; Abdominal pain, unspecified abdominal location [R10.9]; Acute left-sided low back pain, unspecified whether sciatica present [M54.50] Start: 12-07-2023 Covid-19 Vaccine ( season) Covid-19 Vaccine ( season) [facility] Start: 12-07-2023 Covid-19 Vaccine ( season) Covid-19 Vaccine ( season) [facility] Start: 12-07-2023 Influenza vaccination Influenza Vaccine (#1) [place] Kristy gillespie Start: 12-02-2023 End: 12-02-2023 Patient encounter procedure 12/02/2023 9:30 AM EDT Office Visit Dermatology [address] [place] [address] Richie Dejesus MD [address] [place] [address] [facility] Comment on above: [facility] Start: 11-22-2023 End: 02-21-2024 HEMOGLOBIN EVALUATION CASCADE HEMOGLOBIN EVALUATION CASCADE Lab Routine 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) Expected: 11/22/2023, Expires: 02/21/2024 [facility] Comment on above: Expected: 11/22/2023, Expires: Start: 11-19-2023 End: 11-19-2023 ambulatory [place] [facility] Comment on above: (SO)CBC/BMP(S)* (SO)CBC/BMP(S)/QMO?A RANESP/QMO XGEVA/MDCR* Start: 11-12-2023 Subsequent hospital visit by physician 11/12/2023 9:45 AM EDT Hospital Encounter Cardiology Lab [address] [place] [address] SOB (shortness of breath) [R06.02] Cardiology Lab Comment on above: SOB (shortness of breath) [R06.02] Start: 11-12-2023 End: 11-12-2023 Patient encounter procedure 11/12/2023 8:45 AM EDT Appointment Molecular Imaging [address] [place] [id number] EPIC ORDER [facility] Comment on above: EPIC ORDER Start: 10-22-2023 End: 10-21-2024 Cobalamin (Vitamin B12) [Mass/volume] in Serum or Plasma VITAMIN B12 Lab Routine 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) Expected: 10/22/2023, Expires: 10/21/2024 [facility] Comment on above: Expected: 10/22/2023, Expires: Start: 10-22-2023 End: 10-21-2024 Ferritin [Mass/volume] in Serum or Plasma FERRITIN Lab Routine 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) Expected: 10/22/2023, Expires: 10/21/2024 [facility] Comment on above: Expected: 10/22/2023, Expires: Start: 10-22-2023 End: 10-21-2024 Iron and Iron binding capacity panel - Serum or Plasma IRON AND TIBC Lab Routine 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) Expected: 10/22/2023 (Approximate), Expires: 10/21/2024 [facility] Comment on above: Expected: 10/22/2023 (Approximate), Expi res: 10/21/2024 Start: 10-22-2023 End: 10-22-2023 ambulatory [facility] Comment on above: (SO)CBC/BMP(S)* (SO)CBC/BMP(S)/QMO?A RANESP/QMO XGEVA/MDCR* 7 MO OVLAB EARLY/INJ ECTINS TODAY* 7 MO OV/LAB EARLY/IN J TODAY* 7 MO OV/LAB 10/19/INJ TODAY* Start: 10-20-2023 End: 10-20-2023 ambulatory 10/20/2023 8:00 AM EDT Results Only [place] [facility] [address] [place] [address] (SO)CBC/BMP(S)/PSA* [facility] Comment on above: (SO)CBC/BMP(S)/PSA* Start: 10-16-2023 End: 10-16-2023 Patient encounter procedure 10/16/2023 2:20 PM EDT Office Visit Cardiology [address] [place] [address] Dorcas Champagne DO [address] [place] [address] SOB (shortness of breath) [R06.02]; Chest pain, unspecified type [R07.9] Cardiology Comment on above: SOB (shortness of breath) [R06.02]; Ches t pain, unspecified type [R07.9] Start: 10-13-2023 Lipid 1996 panel - Serum or Plasma Lipid Screening [facility] Start: 10-13-2023 LIPID SCREEN LIPID SCREEN [facility] Start: 10-02-2023 End: 10-02-2023 ambulatory 10/02/2023 8:45 AM EDT [facility] Hematology/Oncology [address] [place] [address] Wstr, Injection Ryne [facility] [address] [place] [address] Q6MO LUPRON/MDCR* Hematology/Oncology Comment on above: Q6MO LUPRON/MDCR* Start: 09-24-2023 End: 09-24-[address] [facility] Comment on above: (SO)CBC/BMP(S)* (SO)CBC/BMP(S)/QMO?A RANESP/QMO XGEVA/MDCR* Start: 09-10-2023 End: 09-10-2023 Patient encounter procedure 09/10/2023 9:20 AM EDT Office Visit Cardiology [address] [address] Juanito Mcfarlane MD [address] [place] [address] SOB (shortness of breath) [R06.02]; Chest pain, unspecified type [R07.9] Cardiology Comment on above: SOB (shortness of breath) [R06.02]; Ches t pain, unspecified type [R07.9] Start: 08-27-2023 End: 08-27-2023 ambulatory [facility] Comment on above: (SO)CBC/BMP(S)* (SO)CBC/BMP(S)/QMO?A RANESP/QMO XGEVA/MDCR* Start: 07-31-2023 End: 07-31-2023 [facility] Comment on above: (SO)CBC/BMP(S)* (SO)CBC/BMP(S)/QMO?A RANESP/QMO XGEVA/MDCR* Start: 05-19-2023 Covid-19 Vaccine () Covid-19 Vaccine () [facility] Start: 04-07-2023 Advance Directive Discussion Advance Directive Discussion [facility] Start: 04-07-2023 Behavioral Health Screening Behavioral Health Screening [facility] Start: 04-07-2023 Depression Assessment Depression Assessment [facility] Start: 03-18-2023 End: 06-17-2023 Comprehensive metabolic 2000 panel - Serum or Plasma COMP METABOLIC PANEL Lab Routine Hyperlipidemia, mixed Expected: 03/18/2023, Expires: 06/17/2023 [facility] Work Phone: Comment on above: Expected: 03/18/2023, Expires: 4 Start: 03-18-2023 End: 06-17-2023 LIPID PANEL, NONFASTING LIPID PANEL, NONFASTING Lab Routine Hyperlipidemia, mixed Expected: 03/18/2023, Expires: 06/17/2023 [facility] Work Phone: Comment on above: Expected: 03/18/2023, Expires: 4 Start: 03-13-2023 Covid-19 Vaccine ( season) Covid-19 Vaccine () [facility] Start: 03-11-2023 Covid-19 Vaccine ( season) Covid-19 Vaccine ( season) [facility] Start: 12-06-2022 Covid-19 Vaccine () Covid-19 Vaccine () [facility] Start: 12-06-2022 Influenza vaccination [facility] Start: 11-13-2022 COVID-19 VACCINE (4 - Booster for Moderna series) COVID-19 VACCINE (4 - Booster for Moderna series) [facility] Comment on above: Postponed from 05/17/2021 (Declined at t his time) Start: 08-26-2022 Adult depression screening assessment DEPRESSION SCREENING [facility] Start: 04-07-2022 ADVANCE DIRECTIVE DISCUSSION ADVANCE DIRECTIVE DISCUSSION [facility] Start: 04-07-2022 DEPRESSION ASSESSMENT DEPRESSION ASSESSMENT [facility] Start: 03-11-2022 Adult depression screening assessment DEPRESSION SCREENING [facility] Start: 02-10-2022 Colonoscopy COLONOSCOPY [facility] Start: 02-10-2022 COLORECTAL CANCER SCREENING COLORECTAL CANCER SCREENING [facility] Start: 01-17-2022 COVID-19 VACCINE (5 - Booster for Moderna series) COVID-19 VACCINE (5 - Booster for Moderna series) [facility] Start: 01-17-2022 COVID-19 VACCINE (5 - Moderna series) COVID-19 VACCINE (5 - Moderna series) [facility] Start: 12-06-2021 Influenza vaccination INFLUENZA (#1) [facility] Start: 05-25-2021 COVID-19 VACCINE (4 - Booster for Moderna series) COVID-19 VACCINE (4 - Booster for Moderna series) [facility] Start: 04-07-2021 ADVANCE DIRECTIVE DISCUSSION ADVANCE DIRECTIVE DISCUSSION [facility] Start: 04-07-2021 DEPRESSION ASSESSMENT DEPRESSION ASSESSMENT [facility] Start: 01-10-2021 PNEUMOVAX AGE 65 AND OVER WITH 5YR LOOKBACK (#1) PNEUMOVAX AGE 65 AND OVER WITH 5YR LOOKBACK (#1) [facility] Start: 02-03-2020 FECAL OCCULT BLOOD FECAL OCCULT BLOOD [facility] Start: 02-03-2020 Screening for malignant neoplasm of colon Fecal Occult Blood [facility] Start: 2018 Abdominal aortic aneurysm screening ABDOMINAL AORTIC ANEURYSM HIGH RISK SCREEN [facility] Start: 2018 Pneumococcal vaccination PNEUMOCOCCAL VACCINE SERIES (1 - PCV) [facility] Start: 2013 RSV Vaccine (1 - 1-dose 60+ series) RSV Vaccine (1 - 1-dose 60+ series) [facility] Start: 2003 Prostate specific antigen measurement PROSTATE CANCER SCREENING DISCUSSION [facility] Start: 2003 Zoster vaccine hzv live for subcutaneous use ZOSTER (SHINGLES) VACCINE (1 of 2) [facility] Start: 1998 COLOGUARD (FIT-DNA) COLOGUARD (FIT-DNA) [facility] Start: 1998 Colonoscopy COLORECTAL CANCER SCREENING DISCUSSION [facility] Start: [address] COLONOGRAPHY [facility] Start: 1998 Screening for malignant neoplasm of colon [facility] Start: 1998 SIGMOIDOSCOPY SIGMOIDOSCOPY [facility] Start: 1993 Fasting lipid profile LIPID SCREENING [facility] Start: 1972 Third diphtheria, tetanus and acellular pertussis (DTaP) vaccination TDAP (ADULT) [facility] Start: 1971 Anxiety Screening Anxiety Screening [facility] Start: 1971 Depression Screening Depression Screening [facility] Start: 1971 Tetanus vaccination TETANUS [facility] Start: 1958 COVID-19 VACCINE (#1) COVID-19 VACCINE (#1) [facility] Start: 1953 Hepatitis C antibody, confirmatory test HEPATITIS C VIRUS SCREENING [facility] Anion gap in Serum o r Plasma [facility] BUN/Creatinine ratio [facility] Calcium [Mass/volume ] in Serum or Plasma [facility] Carbon dioxide, tota l [Moles/volume] in Central venous blood [facility] End: 10-21-2024 CBC W Auto Differential panel - Blood COMPLETE BLOOD COUNT AND DIFFERENTIAL Lab Routine 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) Every 3 months for 4 Occurrences starting 10/22/2023 until 10/21/2024 [facility] Comment on above: Every 3 months for 4 Occurrences startin g 10/22/2023 until 10/21/2024 Creatinine [Mass/vol ume] in Serum or Plasma [facility] End: 01-03-2025 CT Abdomen and Pelvis WO contrast CT ABD/PEL WO IVCON Radiology STAT Prostate cancer metastatic to bone (HCC) Abdominal pain, unspecified abdominal location Acute left-sided low back pain, unspecified whether sciatica present 1 Occurrences starting 12/05/2023 until 01/03/2025 [facility] Work Phone: Comment on above: 1 Occurrences starting 12/05/2023 until 01/03/2025 End: 01-03-2025 CT Lumbar spine W contrast IV CT LUMBAR SPINE W IVCON Radiology STAT Prostate cancer metastatic to bone (HCC) Abdominal pain, unspecified abdominal location Acute left-sided low back pain, unspecified whether sciatica present 1 Occurrences starting 12/05/2023 until 01/03/2025 [facility] Comment on above: 1 Occurrences starting 12/05/2023 until 01/03/2025 Debridement bone mus chante &/fascia 20 sq cm/< DEBRIDEMENT BONE W/ EPIDERMIS/DERMIS/ SUBCUTANEOUS TISSUE/ MUSCLE/FASCIA FIRST 20 SQ CM OR LESS Open wound of scalp, unspecified open wound type, initial encounter Wound dehiscence [facility] OR ECG COMPLETE ECG COMPLETE ECG Routine SOB (shortness of breath) Chest pain, unspecified type Ordered: 06/11/2023 [facility] Work Phone: Comment on above: Ordered: 06/11/2023 End: 06-10-2024 Echocardiography ECHO Cardiology Routine SOB (shortness of breath) Chest pain, unspecified type 1 Occurrences starting 06/11/2023 until 06/10/2024 [facility] Work Phone: Comment on above: 1 Occurrences starting 06/11/2023 until 06/10/2024 End: 08-09-2025 Echocardiography ECHO Cardiology Routine SOB (shortness of breath) 1 Occurrences starting 08/09/2024 until 08/09/2025 [facility] Work Phone: Comment on above: 1 Occurrences starting 08/09/2024 until 08/09/2025 Erythrocyte mean corpuscular volume determination [facility] End: 06-10-2024 EXERCISE STRESS ECG (WITHOUT IMAGING) EXERCISE STRESS ECG (WITHOUT IMAGING) Cardiology [place] SOB (shortness of breath) Chest pain, unspecified type 1 Occurrences starting 06/11/2023 until 06/10/2024 [facility] Work Phone: Comment on above: 1 Occurrences starting 06/11/2023 until 06/10/2024 Glucose [Mass/volume ] in Serum or Plasma [facility] Hematocrit [Volume Fraction] of Blood [facility] Hemoglobin [Mass/vol ume] in Blood [facility] Leukocytes [#/volume ] in Blood [facility] Mean corpuscular hemoglobin concentration determination [facility] Mean corpuscular hemoglobin determination [facility] Measurement of renal function [facility] Neutrophil count [facility] Neutrophil percent differential count [facility] End: 11-14-2024 NM Heart Perfusion W multiple states of exercise NM CARDIAC PERF STRESS/EXERCISE Radiology Routine SOB (shortness of breath) Abnormal ECG Chest pain, unspecified type Mixed hyperlipidemia 1 Occurrences starting 10/16/2023 until 11/14/2024 [facility] Work Phone: Comment on above: 1 Occurrences starting 10/16/2023 until 11/14/2024 Patient referral [facility] Work Phone: Platelets [#/volume] in Blood [facility] Potassium measurement [facility] End: 07-30-2024 Prostate specific Ag [Mass/volume] in Serum or Plasma PROSTATE-SPECIFIC ANTIGEN DIAGNOSTIC Lab Routine Prostate cancer (HCC) Every 3 months for 4 Occurrences starting 07/31/2023 until 07/30/2024 [facility] Work Phone: Comment on above: Every 3 months for 4 Occurrences startin g 07/31/2023 until 07/30/2024 End: 10-21-2024 Prostate specific Ag [Mass/volume] in Serum or Plasma PROSTATE-SPECIFIC ANTIGEN DIAGNOSTIC Lab Routine Prostate cancer metastatic to bone (HCC) Every 3 months for 4 Occurrences starting 10/22/2023 until 10/21/2024 [facility] Work Phone: Comment on above: Every 3 months for 4 Occurrences startin g 10/22/2023 until 10/21/2024 Red blood cell count [facility] Red cell distributio n width determination [facility] Serum chloride measurement [facility] Sodium measurement [facility] Sub grft f/s/n/h/f/g /m/d <100sq cm 1st 25 sq cm APPLICATION OF SKIN SUBSTITUTE GRAFT TO FACE EYELIDS EARS ORBITS TOTAL WOUND SURFACE AREA UP TO 100 SQ CM FIRST 25 SQ CM OR LESS WOUND SURFACE AREA Open wound of scalp, unspecified open wound type, initial encounter Wound dehiscence [facility] OR SURGICAL PATHOLOGY SURGICAL PATH OLOGY Lab Routine Skin neoplasm 05/04/2024 12:50 PM EST [facility] Work Phone: Tissue Pathology bio psy report SURGICAL PATHOLOGY Lab Routine Squamous cell carcinoma of scalp 06/17/2024 10:36 AM EDT [facility] Work Phone: Troponin T.cardiac [Mass/volume] in Serum or Plasma by High sensitivity method [facility] Urea nitrogen [Mass/volume] in Serum or Plasma [facility] Urine culture [facility] End: 11-13-2025 US Abdomen RUQ US ABD RIGHT UPPER QUADRANT Radiology Routine Cholangitis (HCC) Sepsis with acute organ dysfunction and septic shock, due to unspecified organism, unspecified organ dysfunction type (HCC) 1 Occurrences starting 10/14/2024 until 11/13/2025 [facility] Comment on above: 1 Occurrences starting 10/14/2024 until 11/13/2025 End: 01-22-2025 XR Pelvis and Hip - left AP and Lateral frog XR HIP GENERAL 3V PELV/AP/LAT LEFT Radiology Routine Left hip pain 1 Occurrences starting 12/24/2023 until 01/22/2025 [facility] Work Phone: Comment on above: 1 Occurrences starting 12/24/2023 until 01/22/2025 XR Pelvis and Hip - left AP and Lateral frog XR HIP GENERAL 3V PELV/AP/LAT LEFT Radiology Routine Left hip pain 12/24/2023 12:18 PM EDT [facility] Immunizations Immunization Date Immunization Notes Care Provider Fa neelima 04-23-2024 respiratory syncytia l virus (RSV) vaccine, adjuvanted (AREXVY) Ricihe Dejesus MD Work Phone: [facility] 01-09-2024 influenza, high dose seasonal, preservative-free Arsalan Ocampo MD Work Phone: [facility] 01-09-2024 influenza virus vaccine, unspecified formulation Dereje Herring MD Work Phone: [facility] 03-19-2023 respiratory syncytia l virus (RSV) vaccine, adjuvanted (AREXVY) Injection Wstr Work Phone: [facility] 01-16-2023 COVID-19 vaccine, ag e 12+ yr (MODERNA) Arsalan Ocampo MD Work Phone: [facility] 01-14-2023 COVID-19 original vaccine, full dose, monovalent (MODERNA) Arsalan Ocampo MD Work Phone: [facility] 12-25-2022 influenza (aIIV4) vaccine, age 65+ yr, quadrivalent, PF (FLUAD QUAD) Arsalan Ocampo MD Work Phone: [facility] 12-25-2022 influenza virus vaccine, unspecified formulation Dorcas Chmapagne DO Work Phone: [facility] 09-23-2022 tetanus toxoid, redu olinda diphtheria toxoid, and acellular pertussis vaccine, adsorbed DR PERFECTO GERBER MD [facility] 01-20-2022 influenza (aIIV4) vaccine, age 65+ yr, quadrivalent, PF (FLUAD QUADRIVALENT) Arsalan Ocampo MD Work Phone: [facility] 01-20-2022 influenza virus vaccine, unspecified formulation Injection Wstr Work Phone: [facility] 06-19-2021 pneumococcal (PCV20) vaccine, 20 valent (PREVNAR 20) Lillian Clemente MD Work Phone: [facility] Work Phone: 12-26-2020 influenza, high dose seasonal, preservative-free Lillian Clemente MD Work Phone: [facility] 12-26-2020 influenza, high-dose , quadrivalent vaccine (FLUZONE HIGH DOSE QUADRIVALENT) Lillian Clemente MD Work Phone: [facility] 06-23-2020 COVID-19 vaccine, fu ll dose (MODERNA) Lillian Clemente MD Work Phone: [facility] 05-26-2020 COVID-19 vaccine, fu ll dose (MODERNA) Lillian Clemente MD Work Phone: [facility] 02-16-2020 zoster vaccine recombinant Lillian Clemente MD Work Phone: [facility] 12-08-2019 influenza, high-dose , quadrivalent vaccine (FLUZONE HIGH DOSE QUADRIVALENT) Lillian Clemente MD Work Phone: [facility] 12-08-2019 zoster vaccine recombinant Lillian Clemente MD Work Phone: [facility] 12-15-2018 influenza, high dose seasonal, preservative-free Lillian Clemente MD Work Phone: [facility] 12-15-2018 Influenza, injectabl e, Madin Sanjeev Canine Kidney, preservative free, quadrivalent Lillian Clemente MD Work Phone: [facility] Work Phone: 10-12-2018 pneumococcal conjuga te vaccine, 13 valent Lillian Clemente MD Work Phone: [facility] 01-28-2018 Influenza, injectabl e, Madin Sanjeev Canine Kidney, preservative free, quadrivalent Lillian Clemente MD Work Phone: [facility] Work Phone: 12-17-2016 influenza, injectabl e, quadrivalent, preservative free Lillian Clemente MD Work Phone: [facility] Work Phone: 12-17-2016 influenza, seasonal, injectable Lillian Clemente MD Work Phone: [facility] 01-11-2016 pneumococcal polysaccharide vaccine, 23 valent Lillian Clemente MD Work Phone: [facility] 12-07-2015 influenza, injectabl e, quadrivalent, contains preservative Lillian Clemente MD Work Phone: [facility] 11-24-2015 influenza, injectabl e, quadrivalent, preservative free Lillian Clemente MD Work Phone: [facility] Work Phone: 12-26-2010 influenza virus vaccine, unspecified formulation Lillian Clemente MD Work Phone: [facility] Work Phone: 04-05-2009 novel [id number], preservative-free, injectable Lillian Clemente MD Work Phone: [facility] Work Phone: 01-21-2008 tetanus toxoid, redu olinda diphtheria toxoid, and acellular pertussis vaccine, adsorbed Lillian Clemente MD Work Phone: [facility] Work Phone: Payers Date Payer Category Payer Self-pay 2021 Medicare [id number] 2021 Private Health Insurance [facility] AARP SUPPLEMENT [id number] 2021-Present [phone] [address] [place] [address] Indemnity [id number] 2021 Private Health Insurance [id number] 2021 Unknown [id number] 2018 Medicare [id number] 2018 Medicare [id number] 2016 Unknown [id number] 2002 Unknown [id number] 1953 Unknown [id number] .594 1953 Unknown [id number] [id number] .627 Unknown [id number] Unknown [id number] 2.16.840.1.565722.3.579.2 .462 Unknown [id number] .462 Unknown [id number] 2.16.840.1.758842.3.579.2 .462 Unknown [id number] 2.16.840.1.486699.3.579.2 .462 Unknown [id number] 2.16.840.1.676561.3.579.2 .462 Unknown [id number] 2.16.840.1.460237.3.579.2 .462 Unknown [id number] 2.16.840.1.903327.3.579.2 .462 Unknown [id number] 2.16.840.1.350072.3.579.2 .462 Unknown [id number] 2.16.840.1.742794.3.579.2 .462 Unknown [id number] 2.16.840.1.133486.3.579.2 .462 Unknown [id number] 2.16.840.1.892304.3.579.2 .462 Unknown [id number] 2.16.840.1.411342.3.579.2 .462 Unknown [id number] 2.16.840.1.911093.3.579.2 .462 Unknown [id number] .462 Social History Date Type Detail Facility Start: 07-13-2013 End: 12-24-2023 Tobacco smoking status NHIS Ex-smoker [facility] Start: 01-13-1971 End: 07-13-1973 History of tobacco use Current smoker [facility] Start: 01-13-1971 End: 07-13-1973 History of tobacco use Cigarette Smoker [facility] Start: 07-13-2013 End: 10-29-2022 Cigarettes smoked current (pack per day) - Reported 0.25 [facility] Start: 07-13-2013 End: 12-24-2023 Tobacco use and exposure Smokeless tobacco non-user [facility] Start: 06-21-2021 End: 02-27-2022 Alcohol intake Current drinker of alcohol (finding) [facility] Start: 06-28-2020 History SDOH Alcohol Frequency 4 [facility] Start: 06-28-2020 End: 04-09-2021 History SDOH Alcohol Std Drinks 1 [facility] Start: 08-09-2020 History SDOH Alcohol Comment occasionally [facility] Start: 06-28-2020 History SDOH Social Connections Phone 5 [facility] Start: 06-28-2020 History SDOH Social Connections [facility] 3 [facility] Start: 06-28-2020 History SDOH Social Connections Membership 98 [facility] Start: 06-28-2020 End: 04-09-2021 History SDOH Transport Med 2 [facility] Start: 06-28-2020 Education 17 [facility] Start: 1955 Sex Assigned At Male [facility] Start: 06-11-2021 End: 02-27-2022 Exposure to SARS-CoV-2 (event) Not sure [facility] Start: 1955 Sex Assigned At Not on file [facility] Sex Assigned At Sex [facility] Start: 06-28-2020 End: 10-29-2022 Social connection and isolation panel [facility] Do you belong to any clubs or organizations such as congregational groups, unions, [employer] or athletic groups, or school groups? Patient refused [facility] Are you now , , , , never or living with a partner? [facility] How often to you hav e a drink containing alcohol? 2-3 time sa week [facility] How many standard dr inks containing alcohol do you have on a typical day? 1 or 2 [facility] How often do you hav e 6 or more drinks on 1 occasion? Never [facility] Do you feel stress - tense, restless, nervous, or anxious, or unable to sleep at night because your mind is troubled all the time - these days [OSQ] Not at all [facility] (I/We) worried layla er (my/our) food would run out before (I/we) got money to buy more. Never true [facility] In the past 12 month s, was there a time when you were not able to pay the mortgage or rent on time? No [facility] Start: 10-07-2018 Gender identity Identifies as male gender (finding) [facility] Start: 10-11-2019 Sexual orientation Heterosexual (finding) [facility] Do you belong to any clubs or organizations such as congregational groups, [employer], [employer] or athletic groups, or school groups? Yes [facility] Do you feel stress - tense, restless, nervous, or anxious, or unable to sleep at night because your mind is troubled all the time - these days [OSQ] Only a little [facility] Start: 01-30-2023 End: 10-13-2024 Alcohol intake Ex-drinker (finding) [facility] Start: 09-18-2024 End: 10-14-2024 Tobacco smoking status MOIS Never smoked tobacco (finding) [facility] Medical Equipment Procedure Code Equipment Code Equipment Origin al Text Equipment Identifier Dates Appendectomy, laparoscopic Surgical staple loading unit, non-cutting [id number] [facility] Start: 02-05-2024 Goals Date Patient Goal Desired Activity /State Personal health goal Functional Status Date Assessment Result Facility 09-22-2024 Functional status Ambulates;Chair [facility] Work Phone: 09-23-2022 Functional Status Up ad jerrell [facility] 10-11-2014 Are you deaf, or do you have serious difficulty hearing No 10/11/2014 1:54 PM EDT Mariangel Baum MA No [facility] 10-11-2014 Are you blind, or do you have serious difficulty seeing, even when wearing glasses No 10/11/2014 1:54 PM EDT Mariangel Baum MA No [facility] 10-11-2014 Do you have serious difficulty walking or climbing stairs No 10/11/2014 1:54 PM EDT Mariangel Baum MA No [facility] 10-11-2014 Do you have difficul ty dressing or bathing No 10/11/2014 1:54 PM EDT Mariangel Baum MA [facility] 10-11-2014 Because of a physica l, mental, or emotional condition, do you have difficulty doing errands alone such as visiting a physician's office or shopping No 10/11/2014 1:54 PM EDT Mariangel Baum MA [facility] Mental Status Date Assessment Result Facility 09-22-2024 Cognitive function Voice/Name [facility] Work Phone: 09-18-2024 Cognitive function Level Of Cons ciousness Awake;Alert;Appropriate;Fol lows Commands [facility] Work Phone: 09-23-2022 Mental Status Orientation Oriented x 4 [facility] 10-11-2014 Because of a physica l, mental, or emotional condition, do you have serious difficulty concentrating, remembering, or making decisions No 10/11/2014 1:54 PM EDT Mariangel Baum MA No [facility] Clinical Notes 07-13-2013 to 10-14-2024 Telephone Encounter - Debbie Richmond LPN - 10/14/2024 8:38 AM EDTTelephone Encounter - Debbie Richmond LPN - 10/14/2024 8:38 AM Felix Husain MD - 10/14/2024 5:39 AM EDTPatient Instructions Note Date & Type Note Facility 10-14-2024 Telephone encounter Note Images from the original note were not included. Felix Al MD [facility] Please let the patient know that after reviewing his images from [facility] I would like him to have follow-up laboratory studies-CBC and chemistry panel which are ordered and a follow-up right upper quadrant ultrasound. I am not certain that his episode truly was a calculus cholecystitis. Please have him follow-up in the office after the studies are completed. Called patient. Verified name and date of . Patient informed- verbalizes understanding. Transferred to scheduling. Debbie Richmond LPN [facility] 10-14-2024 Miscellaneous Notes Images from the original note were not included. Felix Al MD [facility] Please let the patient know that after reviewing his images from [facility] I would like him to have follow-up laboratory studies-CBC and chemistry panel which are ordered and a follow-up right upper quadrant ultrasound. I am not certain that his episode truly was a calculus cholecystitis. Please have him follow-up in the office after the studies are completed. Called patient. Verified name and date of . Patient informed- verbalizes understanding. Transferred to scheduling. Debbie Richmond LPN documented in this encounter [facility] 10-14-2024 History of Presen t illness Narrative HISTORY AND PHYSICAL Luther Castillo 1955 REFERRING PHYSICIAN: Bashir Varela DO CHIEF COMPLAINT: Consult (Cholangitis) HPI: Luther is a 69 year old male with a recent hospital admission for sepsis presumed to be due to acalculous cholecystitis. 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 Luther was hospitalized at [facility] on September 18 for 4 nights due to sepsis and a bloodstream infection. During this hospitalization, he was tentatively diagnosed with acalculous cholecystitis. In the emergency department he was noted to have diarrhea fever feeling dizzy with mild shortness of breath. He was initially hypotensive on presentation with a blood pressure of 56/30. Initial laboratory studies demonstrated a low white blood cell count of 4.3 chronic anemia a low platelet count of 19,000. Coags were mildly elevated. He was found to have an elevated lactic acid and elevated bilirubin of 1.76. The patient underwent CT scan of the abdomen pelvis on September 19, 2024. This demonstrated no acute findings. The CT scan was to the calcified stone within the gallbladder but no gallbladder wall thickening or pericholecystic fluid. The patient underwent a right upper quadrant ultrasound on September 21, 2024. This said heterogeneous echotexture of the liver and edematous anterior gallbladder wall measuring 5 cm. I do not see that HIDA scan was obtained. He denies experiencing right upper quadrant pain at the time of hospitalization and does not recall any mental status changes. He was advised to follow up with his primary care provider for further evaluation and management. Luther also reports a non-healing scalp wound following Mohs surgery 4 months ago. He has been receiving treatment at the wound center in [place] and is considering a second opinion. He mentions that the wound has not shown significant improvement and is considering a skin graft as recommended by his current provider. The patient is being seen by me today at the request of Dr. Arsalan Ocampo MD for my opinion and advice regarding questionable ascending cholangitis as a cause for recent hospital admission for septic episode. SIGNIFICANT MEDICAL PROBLEMS: PAST MEDICAL HISTORY Diagnosis Date Abdominal pain, left lower quadrant Actinic keratosis Allergic rhinitis, cause unspecified Allergic rhinitis Arthritis Benign neoplasm of rectum and anal canal BPH (benign prostatic hyperplasia) Elevated PSA Dr Mckeon Family history of malignant neoplasm of prostate 02/13/2017 Gastroesophageal reflux disease with esophagitis 10/09/2016 Hemorrhoids, unspecified hemorrhoid type History of squamous cell carcinoma of skin 06/2017 left frontal scalp Iron deficiency anemia, unspecified Prostate cancer (HCC) Dr. 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 predniSONE (DELTASONE) 5 mg tablet Take 1 tablet by mouth two times a day. 60 tablet 2 scopolamine (TRANSDERM-SCOP) patch 1.5 mg/72 hr (delivers 1 mg over 3 days) Apply 1 Patch as directed every 72 hours. 4 Patch 0 atorvastatin (LIPITOR) 20 mg tablet Take 1 tablet by mouth daily at bedtime. For cholesterol. 90 tablet 3 dexAMETHasone (DECADRON) 4 mg tablet Take 1 tablet by mouth daily with breakfast. Take on mornings of injections 12 tablet 2 tamsulosin (FLOMAX) 0.4 mg Take 1 capsule by mouth once daily. 90 capsule 3 darbepoetin dagmar in albumn john (ARANESP INJECTION) by INJECTION(UNSPECIFIED PARENTERAL ROUTES) route every 4 weeks. PRN cimetidine (TAGAMET) 200 mg tablet Take 200 mg by mouth twice daily. calcium carbonate/vitamin D3 (CALCIUM + D ORAL) Take 1 tablet by mouth twice daily. leuprolide acetate (ELIGARD SUBCUTANEOUS) Inject subcutaneously once every 6 months. iv contrast (will be provided with radiology [...] current facility-administered medications for this visit. ALLERGIES: Ragweed Pollen PERSONAL HISTORY: Social History Tobacco Use Smoking status: Former Current packs/day: 0.00 Average packs/day: 0.3 packs/day for 2.5 years (0.6 ttl pk-yrs) Types: Cigarettes Start date: 01/13/1971 Quit date: 07/13/1973 Years since quittin.2 Smokeless tobacco: Never Vaping Use Vaping status: [...] by the nurse and reviewed by me There are no exam notes on file for this visit. PHYSICAL EXAMINATION: General: The patient is 69 year old male, well nourished, well hydrated in no acute distress. The patient is oriented to time, place, and person. VITALS: Blood pressure 110/64, pulse (!) 122, temperature 36.6 C (97.8 F), height 170.2 cm (5' 7), weight 63.7 kg (140 lb 6.4 oz), SpO2 99%. Body mass index is 21.99 kg/m . HEENT: Normal cephalic, ataumatic, pupils are equally round, sclera are anicteric, mucous membranes are moist, oropharynx is clear. Neck has no masses, asymmetry or lymphadenopathy. Thyroid is unremarkable. Respiratory: Clear to auscultation and percussion. Normal respiratory excursion and pattern. Cardiac: Examination is regular rate and rhythm. Abdominal exam: Normoactive bowel sounds, Soft, non tender in the right upper quadrant negative Renee's sign, with no palpable masses. No hepatosplenomegaly. No palpable hernias. Rectal exam: exam deferred Extremities: no clubbing, cyanosis or edema. No adenopathy. Other: LABORATORY VALUES: As Noted RADIOLOGIC STUDIES: My review of the CT scan from September 19 demonstrates bilateral pleural effusions and atelectasis versus possibly pneumonia. I am uncertain whether the CT image is truly a gallstone versus possibly gallbladder wall edema. I do not see a gallstone on ultrasound obtained on September 21. Assessment IMPRESSION: Recent septic episode with questionable cause suggested acalculous cholecystitis PLAN: 1. Cholangitis (HCC) (K83.09) Recent hospitalization for sepsis with jaundice and elevated bilirubin levels. Ultrasound showed no gallstones, but evidence of wall thickening. Blood cultures revealed Streptococcus intermedius and a gram-negative moi. No mental status changes reported during hospitalization. Questionable diagnosis is ascending cholangitis. - I obtained copies of ultrasound and CT scan reports from [facility]. I plan to repeat his laboratory studies-CBC and chemistry panel and obtain a follow-up outpatient ultrasound. - Discussed laparoscopic cholecystectomy as a treatment option; explained procedure involves small incisions and is typically an outpatient surgery with a recovery time of about 45 minutes if there is minimal inflammation. - Timing of surgery to be determined based on patient's other medical needs, including potential skin graft for non-healing scalp wound. - Patient to follow up after wound center consultation to decide on the necessity/timing of the cholecystectomy. Diagnoses: (K83.09) Cholangitis (HCC) My findings have been communicated to Dr. Varela via shared medical record. This note will be forwarded to Dr. Arsalan Ocampo MD. Felix Al MD documented in this encounter [facility] 10-13-2024 Telephone encounter Note Images requested pushed from [facility]. Labs and imaging reports printed and sent to scanned docs.Namita Cano RN [facility] 10-13-2024 Miscellaneous Notes Images requested pushed from [facility]. Labs and imaging reports printed and sent to scanned docs.Namita Cano RN documented in this encounter [facility] 10-13-2024 Instructions Felix Al MD - 10/13/2024 10:18 AM EDT We discussed your recent hospitalization and gallbladder concerns: - You were hospitalized three weeks ago for sepsis and a gallbladder infection. Imaging showed no gallstones but suggested acalculous cholecystitis (gallbladder inflammation without stones). Blood cultures identified rare bacteria, and you were treated with antibiotics and received blood transfusions. - Based on your history, it is likely you had ascending cholangitis (a liver infection caused by bile duct blockage). Symptoms included jaundice and elevated bilirubin levels. - I will request copies of your ultrasound, CT scan, and lab results from [facility] to confirm findings and better understand the situation. We discussed treatment options for your gallbladder: - If the diagnosis of ascending cholangitis is confirmed, removing your gallbladder (cholecystectomy) is a reasonable next step. This would be done laparoscopically, with small incisions, and is typically an outpatient procedure with a recovery time of about 1-2 weeks. - Timing for surgery is flexible. If you are not experiencing recurring symptoms, this can be scheduled electively. However, if your scalp wound requires immediate attention, we can prioritize that first and delay the gallbladder surgery until later. We discussed your non-healing scalp wound: - You had Mohs surgery four months ago, and the wound has not healed. You are seeing a specialist at the wound center tomorrow for a second opinion. They may recommend skin grafting to promote healing. - If the wound care process is prolonged, we can consider addressing your gallbladder sooner. Next steps: - I will review the imaging and lab results from your hospitalization once they are available and contact you to discuss the findings and finalize a plan for your gallbladder. - Please proceed with your appointment at the wound center tomorrow and follow their recommendations for your scalp wound. If you experience worsening symptoms such as severe abdominal pain, fever, jaundice, or changes in mental status, please seek immediate medical attention. documented in this encounter [facility] 10-12-2024 History of Presen t illness Narrative [facility]ive Surgery Name: Luther Castillo Date of Service: October 12, 2024 Patient ID: 69 year old male seen for the first time today in clinic referred by: Dr. Burkett HPI: Here today for further evaluation and management of scalp reconstruction. His last mohs procedure for removal of a scalp skin cancer was in june Did have sutures, but they pulled apart Scalp has not healed since then despite consistent wound care Wound care consisted of petrolum gelly and adhesive dressing Did try debridement but has not shrunk down No current plans for radiation No prior head and neck surgeries Except carpal tunnel release, no other arm or leg surgeries No major medical conditions, excluding anemia and stage 4 prostate cancer No issue with anesthesia Not on any blood thinners PAST MEDICAL HISTORY Diagnosis Date Abdominal pain, left lower quadrant Actinic keratosis Allergic rhinitis, cause unspecified Allergic rhinitis Arthritis Benign neoplasm of rectum and anal canal BPH (benign prostatic hyperplasia) Elevated PSA Dr Mckeon Family history of malignant neoplasm of prostate 02/13/2017 Gastroesophageal reflux disease with esophagitis 10/09/2016 Hemorrhoids, unspecified hemorrhoid type History of squamous cell carcinoma of skin 06/2017 left frontal scalp Iron deficiency anemia, unspecified Prostate cancer (HCC) Dr. 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 predniSONE (DELTASONE) 5 mg tablet Take 1 tablet by mouth two times a day. scopolamine (TRANSDERM-SCOP) patch 1.5 mg/72 hr (delivers 1 mg over 3 days) Apply 1 Patch as directed every 72 hours. atorvastatin (LIPITOR) 20 mg tablet Take 1 [...] SUBCUTANEOUS) Inject subcutaneously once every 6 months. iv contrast (will be provided with radiology [...] No current facility-administered medications for this visit. FAMILY HISTORY Problem Relation Age of Onset [...] date: 01/13/1971 Quit date: 07/13/1973 Years since quittin.2 Smokeless tobacco: Never Vaping Use Vaping status: Never Used Substance Use Topics Alcohol use: Not Currently Alcohol/week: 6.0 standard drinks of alcohol Types: 6 Cans of Beer (12oz) per week Comment: occasionally Drug use: No EXAM: General:Well developed, well nourished, interactive male Scalp: approximately 2x2 cm circular wound with clean edged and exposed bone. No evidence of granulation. Assessment and Plan: Luther Castillo is 69 year old male who presents with a scalp wound s/p Moh's. No history of radiation and wound has not healed with appropriate wound care. -Plan for closure with drilling of the bone down to bleeding tissue and freshening of wound edges followed by placement of a skin substitute for help with granulation tissue as a first stage, followed by full thickness skin graft from his neck at a second stage. Discussed that stage 1 will be under general anesthesia, but step 2 could be done with light sedation or GA. -Discussed the risks benefits, and alternatives to surgery. Patient understands the risks and is agreeable to proceed with the first stage. Consent signed. Arnulfo Ortiz MD For the service of Deshaun Santizo MD Attending attestation: I personally evaluated and examined the patient with Dr. Ortiz. Within the resident's note, I have edited the history, physical exam, assessment, and plan to reflect my own findings. Deshaun Santizo MD, FACS Facial Plastic and Reconstructive Surgery [facility], [facility] Medical Decision Making: Problems: Moderate: New problem with uncertain prognosis Risk: Moderate: Decision on elective major surgery w/o risk factors Medical Decision Making Level: 4 - Moderate Tobacco Use: Types: Cigarettes Was smoking cessation packet given? N/A - Patient is a non-smoker or quit >1 year ago. Was a referral initiated?N/A Patient is a non-smoker documented in this encounter [facility] 10-07-2024 Telephone encounter Note Per Dr. Herring, yes he is willing to do a referral to [facility]. Order signed and faxed. Krista Dorsey RN [facility] Work Phone: 10-07-[address] Herring, yes he is willing to do a referral to [facility]. Order signed and faxed. Krista Dorsey RN documented in this encounter [facility] 10-01-2024 Telephone encounter Note [facility] requesting pt to call back Referral from Dr. 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 Aggressive tumor--stripped periosteum to fully remove tumor, was mod-diff, and worrisome for PNI/LVI (but negative for these on permanent sections). He had a consultation with Rad onc but did not end up requiring radiation. I did suture him on day of Mohs but he dehisced. I have been trying to help his scalp heal with various wound care methods, but there continues to be exposed bone at the base (healthy, non-dessicated). I'm wondering if I can refer him to you. May need a tissue proprietary trader prior to a flap as his scalp is very tight. Any help you can provide would be much appreciated! [facility] 10-01-2024 Miscellaneous Notes [facility] requesting pt to call back Referral from Dr. 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 Aggressive tumor--stripped periosteum to fully remove tumor, was mod-diff, and worrisome for PNI/LVI (but negative for these on permanent sections). He had a consultation with Rad onc but did not end up requiring radiation. I did suture him on day of Mohs but he dehisced. I have been trying to help his scalp heal with various wound care methods, but there continues to be exposed bone at the base (healthy, non-dessicated). I'm wondering if I can refer him to you. May need a tissue proprietary trader prior to a flap as his scalp is very tight. Any help you can provide would be much appreciated! documented in this encounter [facility] 10-01-2024 Note [facility] 10-01-2024 History of Presen t illness Narrative PROCEDURE FOLLOW UP PATIENT ID CONFIRMED: YES PATIENT ID VERIFIED BY: Yanet Cardoso RN CLINICIAN: Jackelyn Cardoso RN PATIENT RETURNS FOR: wound check PHOTO TAKEN: Yes PATIENT IS S/P: MOHS surgery FOLLOW UP DIAGNOSIS: SCC Pathology results: NONE DATE OF PROCEDURE: 06-17-2024 SITE LOCATION: scalp WOUND MANAGEMENT: Wound had dehisced after suture removal and is now open left to heal by second intent. There are no signs of infection, bone exposed and very little change in the wound healing since last visit. Pt has been using vaseline and Duoderm dressing- changing it every 2 days or so. Seen by Dr. Bronson to discuss options. Will refer pt to Dr. Santizo to discuss further management. Message sent by Dr. Bronson to Dr. Santizo today. FOLLOW UP: next appt to be arranged to see Dr. Darlyn Cardoso RN October 01, 2024 11:23 AM documented in this encounter [facility] 09-30-2024 Note [facility] 09-30-2024 History of Presen t illness Narrative aranesp injection administered, left arm, tolerated well, no immediate adverse reactions noted. See office notes. Abigail Ferrer LPN documented in this encounter [facility] 09-30-2024 Telephone encounter Note completed [facility] Work Phone: 09-30-2024 Miscellaneous Notes completed yes, there are standing orders for CBC/PSA/BMP, also needs VitB12/Folate/Retic as ordered from last OV. Krista Dorsey RN Patient called asking if labs are needed for todays appointment. He is aware he has labs scheduled for 10/05. He will be in at the arrival time of 3:05 and states if labs are needed, go ahead and schedule and he will check with front end web designer. No need to call and inform patient. documented in this encounter [facility] 09-30-2024 Telephone encounter Note yes, there are standing orders for CBC/PSA/BMP, also needs VitB12/Folate/Retic as ordered from last OV. Krista Dorsey, ERIN [facility] Work Phone: 09-30-2024 Telephone encounter Note Patient called asking if labs are needed for todays appointment. He is aware he has labs scheduled for 10/05. He will be in at the arrival time of 3:05 and states if labs are needed, go ahead and schedule and he will check with front end web designer. No need to call and inform patient. [facility] 09-28-2024 Telephone encounter Note Spoke w pt and he is scheduled w Dr Al on 10/13. Mili Villa [facility] 09-28-2024 Miscellaneous Notes Spoke w pt and he is scheduled w Dr Al on 10/13. Mili Villa PSS: patient also need scheduled consult to general surgery. order within phone note. patient ok to have first available from below. Krista Dorsey RN ---needs a surgical consult to either [place] (Dr. Al) or one the surgeons at [facility], (Tierra Sofia, Chloe or Sergey). Spoke to pt and MRI brain is scheduled for 09/28. Mili Villa PSS please reach out to pt. To schedule MRI of Brain. Abigail Ferrer LPN I filed the order. Okay to schedule. Bashir Varela DO Spoke with pt. Informed Dr. Varela had recommended and MRI of brain and referral to residential direct support professional. Pt. States he see's Dr. Veena Gerber Jewel Setter @ [facility] here in [place]. MRI brain order pended. Not sure if Dr. Varela wants to sign or wait until Dr. Herring returns Abigail Ferrer LPN MRI brain with and without contrast when able. Advised him to see his residential direct support professional. If he does not have one, then refer to either ophthalmology here or at the [facility]. Surgery consult pended. Called and spoke with patient, he is aware of f/u appt next week with Dr. Herring. He is ok to see either of the surgeons listed. ok to see whoever has first available. Asked more about his symptoms, clarified that it is the right side and previous note addended. States he on occasion has some issues with vision, states sometimes it gets bright and I can't see as well, the past Friday prior to going to the ED, it was having vision issues, could only see shapes of things but states his BP and sugar was low. He denies any issues with vision now, no difficulty or issues when he moves his eye or looks in different directions. Aware that I will update Dr. Varela with above and call back. Krista Dorsey RN PSS: please schedule patient Hospital f/u OV with Dr. Herring 09/30/24 at 320pm. Patient/ aware, no need to call. ERIN Vila Dr. agrees with F/U OV on 09/30/24 and adds needs a surgical consult to either [place] (Dr. Al) or one the surgeons at [facility], (Tierra Sofia, Chloe or Sergey). He reviewed the chart regarding headaches, low concern for cancer. Krista Dorsey RN DISCHARGE CALL BACK Today's date: September 23, 2024 Notified of Pt discharge by: Dr. Varela Patient discharged on 09/22/24 from [facility] to Home Primary Cancer Diagnosis: Prostate Admitting Diagnosis: Sepsis, acute cholecystitis Discharge Summary/SBAR reviewed: Yes Handoff Discussed with Transitional Retail Maintenance Technician: N/A Psychosocial Risk Factors: None If patient discharged to SNF/Rehab Facility, phone call completed to reinforce discharge instructions and follow up: N/A Call Disposition: Called patient and spoke with spouse Patient identified by name and date of . YES Patient with symptom issues: Yes, headache Pain: Yes, pain rated 7 on a scale of 0-10 (0=none, 10=worst). Location: behind right eye, migrates up to top of head. Character: UNABLE TO DESCRIBE, talking with spouse and not with patient at time of phone call. Duration: 8 weeks. Frequency: occurs constantly. states that this is probably bothering him more than anything and keeping him from doing things he would like to do. Mohs surgery about 10 weeks ago, area on top of head, right of center. Started with headaches about 2 weeks later. She states at once of there f/u, they did report Dr. Herring, his thought was it was related to Mohs and she states they reported to Derm and they did not think related to Mohs procedure. During hospital stay, they were advised to let Dr. Herring know he still has headaches and an MRI may be needed to evaluate. He was taking Ibuprofen and advised to switch to Tylenol in hospital. Tylenol helps some. When they are at there worst, he wants to sit/rest with eyes closed. She states headaches are not getting better and she is concerned. States he took Tylenol this am, headache tolerable, was eating breakfast. Is patient followed by Palliative Medicine? No Palliative Medicine follow up: N/A Any new barriers to care identified? No Any new referrals needed? No Social Work Follow-Up visit scheduled? No Does the patient need interventions will discuss plan with Dr. Varela or same day appointment: No MEDICATION ADHERENCE Patient discharged with prescriptions? Yes, Cefdinir Discharge prescriptions filled: Yes Patient understands when to take prescriptions: Yes FOLLOW UP Patient scheduled for follow-up appointment within 5 business days of discharge? Yes Patient reminded of follow-up appointment with [facility] provider, Dr. Herring on 09/30/24: Yes Discussed Denies fever/chills. Taking antibiotic. His Abiraterone was held in hospital and he restarted this am. They have f/u with Derm 10/01/24, planning to follow up with PCP, no OV made at this time. They also would like to have consult with surgeon w/in [facility] regarding cholecystitis. PATIENT EDUCATION / REINFORCEMENT Patient verbalizes understanding of when to seek Medical Attention? YES Patient verbalizes understanding of after hours and weekend phone number? YES Natalya Dorsey RN documented in this encounter [facility] 09-28-2024 Telephone encounter Note PSS: patient also need scheduled consult to general surgery. order within phone note. patient ok to have first available from below. Krista Dorsey RN ---needs a surgical consult to either [place] (Dr. Al) or one the surgeons at [facility], (Tierra Sofia, Chloe or Sergey). [facility] Work Phone: 09-28-2024 History of Presen t illness Narrative Radiology Service Progress Note DATE OF SERVICE: September 28, 2024 TIME: 12:29 PM PATIENT IDENTITY VERIFICATION COMPLETED USING TWO (2) STANDARD IDENTIFIERS: Name and Date of confirmed by patient verbally. FALL SCREENING: Has the patient had 2 falls in the last year or 1 fall with injury or currently using an Ambulatory Assistive Device (Walker, Cane, Wheelchair, Crutches, etc.)? No PATIENT GENDER DATA: Assigned male at PATIENT RELEVANT IMPLANT DATA REVIEWED: Yes PATIENT PRESENTS WITH AN IMPLANTABLE OR ATTACHED FLEET MANAGER/DISPATCH: No ALLERGIES: Reviewed and unchanged CONTRAST ALLERGY: NO. EXAM: MRI - CONTRAST TYPE: GROUP II PERIPHERAL IV DATA: Ambulatory: A peripheral IV was started in the Right antecubital site with a Angio cath: 22 gauge. RADIOLOGY DEPARTMENT: MR; Exam(s) Completed: Head: Routine Brain. Aromatherapy Administered: No SIGNATURE: RT Iman(R) PATIENT NAME: Luther Castillo DATE: September 28, 2024 TIME: 12:29 PM documented in this encounter [facility] 09-28-2024 Note [facility] 09-24-2024 Telephone encounter Note Spoke to pt and MRI brain is scheduled for 09/28. Mili Villa [facility] 09-24-2024 Telephone encounter Note PSS please reach out to pt. To schedule MRI of Brain. Abigail Ferrer LPN [facility] 09-24-2024 Telephone encounter Note I filed the order. Okay to schedule. Bashir Varela DO [facility] 09-24-2024 Telephone encounter Note Spoke with pt. Informed Dr. Varela had recommended and MRI of brain and referral to residential direct support professional. Pt. States he see's Dr. Veena Gerber Jewel Setter @ [facility] [place] here in [place]. MRI brain order pended. Not sure if Dr. Varela wants to sign or wait until Dr. Herring returns Abigail Ferrer LPN [facility] 09-23-2024 Telephone encounter Note MRI brain with and without contrast when able. Advised him to see his residential direct support professional. If he does not have one, then refer to either ophthalmology here or at the [facility]. [facility] 09-23-2024 Telephone encounter Note Surgery consult pended. Called and spoke with patient, he is aware of f/u appt next week with Dr. Herring. He is ok to see either of the surgeons listed. ok to see whoever has first available. Asked more about his symptoms, clarified that it is the right side and previous note addended. States he on occasion has some issues with vision, states sometimes it gets bright and I can't see as well, the past Friday prior to going to the ED, it was having vision issues, could only see shapes of things but states his BP and sugar was low. He denies any issues with vision now, no difficulty or issues when he moves his eye or looks in different directions. Aware that I will update Dr. Varela with above and call back. Krista Dorsey RN [facility] 09-23-2024 Telephone encounter Note PSS: please schedule patient Hospital f/u OV with Dr. Herring 09/30/24 at 320pm. Patient/ aware, no need to call. ERIN Vila Dr. agrees with F/U OV on 09/30/24 and adds needs a surgical consult to either [place] (Dr. Al) or one the surgeons at [facility], (Tierra Sofia, Chloe or Sergey). He reviewed the chart regarding headaches, low concern for cancer. Krista Dorsey RN [facility] 09-23-2024 Telephone encounter Note DISCHARGE CALL BACK Today's date: September 23, 2024 Notified of Pt discharge by: Dr. Varela Patient discharged on 09/22/24 from [facility] to Home Primary Cancer Diagnosis: Prostate Admitting Diagnosis: Sepsis, acute cholecystitis Discharge Summary/SBAR reviewed: Yes Handoff Discussed with Transitional Retail Maintenance Technician: N/A Psychosocial Risk Factors: None If patient discharged to SNF/Rehab Facility, phone call completed to reinforce discharge instructions and follow up: N/A Call Disposition: Called patient and spoke with spouse Patient identified by name and date of . YES Patient with symptom issues: Yes, headache Pain: Yes, pain rated 7 on a scale of 0-10 (0=none, 10=worst). Location: behind right eye, migrates up to top of head. Character: UNABLE TO DESCRIBE, talking with spouse and not with patient at time of phone call. Duration: 8 weeks. Frequency: occurs constantly. states that this is probably bothering him more than anything and keeping him from doing things he would like to do. Mohs surgery about 10 weeks ago, area on top of head, right of center. Started with headaches about 2 weeks later. She states at once of there f/u, they did report Dr. Herring, his thought was it was related to Mohs and she states they reported to Derm and they did not think related to Mohs procedure. During hospital stay, they were advised to let Dr. Herring know he still has headaches and an MRI may be needed to evaluate. He was taking Ibuprofen and advised to switch to Tylenol in hospital. Tylenol helps some. When they are at there worst, he wants to sit/rest with eyes closed. She states headaches are not getting better and she is concerned. States he took Tylenol this am, headache tolerable, was eating breakfast. Is patient followed by Palliative Medicine? No Palliative Medicine follow up: N/A Any new barriers to care identified? No Any new referrals needed? No Social Work Follow-Up visit scheduled? No Does the patient need interventions will discuss plan with Dr. Varela or same day appointment: No MEDICATION ADHERENCE Patient discharged with prescriptions? Yes, Cefdinir Discharge prescriptions filled: Yes Patient understands when to take prescriptions: Yes FOLLOW UP Patient scheduled for follow-up appointment within 5 business days of discharge? Yes Patient reminded of follow-up appointment with [facility] provider, Dr. Herring on 09/30/24: Yes Discussed Denies fever/chills. Taking antibiotic. His Abiraterone was held in hospital and he restarted this am. They have f/u with Derm 10/01/24, planning to follow up with PCP, no OV made at this time. They also would like to have consult with surgeon w/in [facility] regarding cholecystitis. PATIENT EDUCATION / REINFORCEMENT Patient verbalizes understanding of when to seek Medical Attention? YES Patient verbalizes understanding of after hours and weekend phone number? YES Natalya Dorsey RN [facility] 09-22-2024 Note [facility] Medical Records Department [address] [place] [id number] Discharge Summary 09/22/24 1854 MR#: [id number] Acct: [id number] Name: LUTHER CASTILLO II Rep #: [id number] : 1955 69 From: Ivan Nugent MD PCP: Dr. López Ocampo MD Status:DIS IN [place] [facility] MV022-5 Providers Date of Admission: 09/18/24 Primary Care Physician: Dr. López Ocampo MD Consultations 09/18/24 16:37 Consult: Onc/Wound/set up mechanic coating machines Routine Comment: 09/21/24 18:27 Consult: General Surgery Routine Consulting Provider: Rohit Crawford Reason for Consult: radiology results EMERGENT Consult: No MD Notified: Yes Date Notified: 09/21/24 Time Notified: 18:27 Method of Notification: Verbal Comments:: per Dr. Nugent he already talked w/ Dr. Crawford Reason For Visit: SEPSIS Diagnosis Discharge Diagnosis (1) Acute acalculous cholecystitis: Status: Acute Code(s): K81.0 - Acute cholecystitis Medications at Discharge Home Medications abiraterone 250 mg tablet 1,000 mg PO DAILY prostate cancer 12/11/23 atorvastatin 20 mg tablet 20 mg PO QHS cholesterol 12/11/23 prednisone 5 mg tablet 5 mg PO BID prostate 12/11/23 tamsulosin 0.4 mg capsule 0.4 mg PO DAILY prostate 12/11/23 cimetidine 200 mg tablet (Tagamet HB) 200 mg PO BID 02/05/24 leuprolide acetate (6 month) 45 mg (6 month) subcutaneous syringe (Eligard) 45 mg subcut .COMPLEX 02/05/24 darbepoetin dagmar in polysorbat See Rx Instructions IV .COMPLEX 09/18/24 cefdinir 300 mg capsule 300 mg PO BID #16 caps 09/22/24 Hospital Course Operations None Procedures None Summary of Care Provided Minutes Spent on Discharge: 38 Hospital Course: Per HPI: LUTHER CASTILLO, is a 69 M who presents to the hospital with dizziness and hypotension. He has a history of stage IV prostate cancer with mets to the bone that he is currently on immunotherapy and hormonal therapy for. Both time he found that it was already metastatic so he has not undergone a prostatectomy. He has been having headaches for the last 3 weeks but they think that is due to his recent Mohs surgery that has not healed on his scalp. That area does not appear infected. He does not have a leukocytosis and he presented with an STACI to 2.13. He is also had a lactic acidosis of 2.3 and was given several fluid boluses in the emergency room. No obvious signs of infection at the moment, UA is unremarkable as is chest x-ray. He does have an elevated alk phos which is likely due to his bone mets but does also have an elevated total bilirubin at 1.7 sick and he does have some scleral icterus. Initially when he presented to the hospital his systolic blood pressures were in the 50s with a MAP of 41, currently on my evaluation his MAP is 67 with a systolic blood pressure of 102. He started feeling unwell yesterday though given the severity of his vital signs on arrival he has likely been sick for several days that was just asymptomatic secondary to his immunocompromise state. He is chronically on steroids and is unable to compensate. Hospital Course: 1. Severe sepsis with STACI and bacteremia???69-year-old male with history of stage IV prostate cancer with mets to the bone currently on immunotherapy and hormonal therapy presented to hospital with dizziness and hypotension. During his hospitalizations his maps never went below 60 and he was well-managed with IV fluids, he did have a few hours of being on Levophed. He was started on broad- spectrum antibiotics, unfortunately there has not been no clear source, urine sample and chest x-ray were negative for any type of infection and right upper quadrant ultrasound demonstrated possible acalculous cholecystitis with an anterior wall edema of the gallbladder. He also had abnormal bacterial organisms in his blood including a Streptococcus intermedius and the methylolbacterium they seem unlikely to be from a gallbladder source. However they should both be treated with Zosyn that he was on and I will transition him to cefdinir 300 mg p.o. twice daily. He was feeling much better on the day of discharge, he had been given stress dose of his steroids as he is on prednisone 5 mg p.o. twice daily because of his hormonal therapy that can lead to glucocorticoid deficiency. I do recommend outpatient follow-up with general surgery likely at the [facility] as our general surgery does not feel that this would be a facility to manage the complication of his case. In the meantime we will complete 8 more days of outpatient antibiotics and I discussed the case with his oncologist so hopefully they can assist in having a referral to [facility] surgeon. I discussed with him the plan for discharge today and he expressed understanding of the risks and benefits of going home and would like to go home today. 2. Metastatic prostate cancer, anemia of (more content not included)... [facility] 09-22-2024 Discharge summary Note Date/Time September 22, 2024 4:16pm [facility] Medical Records Department [address] [place] [address] Instructions for Home/Discharge Instructions 09/22/24 1614 MR#: [id number] Acct: [id number] Name: LUTHER CASTILLO II Rep #:[id number] : 1955 69 From: Ivan quinn MD PCP: Dr. López Ocampo MD Status :ADM IN Discharge Instructions Diet Discharge Diet: No restrictions DC O2, CPAP, BIPAP needs Home O2 Discharge instructions: No Dressing / Incision Discharge Activity: Return to Normal Activity Dressing / Incision Call your doctor if you observe: Fever of 101 or Higher, Shortness of breath, Dizziness, Fainting spells, Swelling in the ankles, Chest pain and Increased palpitations (irregular heartbeat) Follow Up Care Test Results: Test results from this visit will be discussed in further detail at your follow-up appointment, if applicable. Discharge Plan Admission Admit Date/Time: 09/18/24 15:12 Attending Provider: Ivan Nugent Primary Care Provider: López Ocampo Consulting Providers: Rohit Crawford Discharge Orders/Prescriptions Prescriptions: New cefdinir 300 mg capsule 300 mg PO BID Qty: 16 0RF Continued cimetidine [Tagamet HB] 200 mg tablet 200 mg PO BID Rx Instructions: administer with meals Eligard (6 month) 45 mg syringe 45 mg subcut .COMPLEX Rx Instructions: 45 mg subcutaneously EVERY 6 MONTHS; atorvastatin 20 mg tablet 20 mg PO QHS prednisone 5 mg tablet 5 mg PO BID tamsulosin 0.4 mg capsule 0.4 mg PO DAILY abiraterone 250 mg tablet 1,000 mg PO DAILY darbepoetin dagmar in polysorbat [Aranesp (in polysorbate)] See Rx Instructions IV .COMPLEX Patient Comments: PT UNSURE OF STRENGTH, BUT TOOK THIS MONTH (SEPTEMBER 2024) Rx Instructions: intravenously EVERY MONTH; Referrals / Follow Up: López Ocampo MD [Primary Care Provider] - Within 1 Week Rohit Crawford MD [Med Staff - Active Staff] - Within 2 Weeks (Unless you prefera [facility] physician) Disposition Disposition (needs filled in before D/C Order can be placed): Home, Self Care 09/22/24 1616<Electronically signed by Ivan Nugent MD>Ivan Nugent MD CC: Dr. López Ocampo MD; Dr. Rohit Crawford MD ~ Signed [facility] Work Phone: [phone]) 494-914906-18-2025 Progress note [facility] Medical Records Department [address] [place] [address] Progress Note - Surgery 09/22/24 0720 MR#: [id number] Acct: [id number] Name: LUTHER CASTILLO II Rep #:[id number] : 1955 69 From: Rohit Polanco PCP: Dr. López Ocampo MD Status :ADM IN Location[place] [facility] [place] OP702-9 Subjective Subjective Patient seen and examined during AM rounds. He reports that he is not having any significant tenderness today. He reports that he slept well overnight. Objective Data Objective Data Vital Signs: Vital Signs Temp Pulse Resp BP Pulse Ox O2 Del Method O2 Flow Rate 98 F 69 16 125/77 H 95 Room Air 2 09/22/24 03:40 09/22/24 03:40 09/22/24 03:40 09/22/24 03:40 09/22/24 03:40 09/22/24 03:44 09/19/24 07:56 FiO2 2 09/19/24 09:00 Oxygen Flow Rate (L/min) 2 Oxygen Delivery Method Room Air Weight: 162 lb 0.636 oz Body Mass Index (BMI) 26.0 Intake & Output: Intake and Output for Last 24 Hours 09/20/24 09/21/24 09/22/24 23:59 23:59 23:59 Intake Total 2728 / 2728 1767.00 / 1767.00 551.25 / 551.25 Output Total 1275 / 2125 1850 / 1850 500 / 500 Balance 1453 / 603 -83.00 / -83.00 51.25 / 51.25 Lab / Micro Data 09/22/24 05:12 09/22/24 05:12 Labs: Laboratory Results - last 24 hr 09/22/24 05:12: WBC 4.3 L, RBC 3.60 L, Hgb 9.2 L, Hct 29.3 L, MCV 81.4, MCH 25.6L, MCHC 31.4 L, RDWStd Deviation 61.1 H, RDW Coeff of Lydia 20.4 H, Plt Count 107L, MPV 9.6, Immature Gran % (Auto) 0.500, Neut % (Auto) 69.5, Lymph % (Auto) 25.6, Bullock % (Auto) 3.5, Eos % (Auto) 0.9, Baso % (Auto) 0.0, Absolute Neuts (auto) 3.0, Absolute Lymphs (auto) 1.11, Nucleated RBC % 0, Differential CommentSCANNED, Atypical Lymphocytes 1+, Anisocytosis 2+, Sodium 139, Potassium 4.0, Chloride 110 H, Carbon Dioxide 17.9 L, Anion Gap 10, BUN 31 H, Creatinine 0.77, Estim Creat Clear Calc 76.43, Est GFR (MDRD) Non-Af 96, BUN/Creatinine Ratio 39.9 H, Glucose 108 H, Calcium 7.7, Total Bilirubin 0.72, AST 44 H, ALT 40, Alkaline Phosphatase 156 H, Total Protein 5.5 L, Albumin 3.0 L, Globulin 2.4, Albumin/GlobulinRatio 1.3 Micro: Microbiology 09/18/24 13:40 Blood Culture (Wb) - Anticubital Left Blood Culture - Preliminary Gram positive organism Gram negative moi 09/18/24 13:40 Blood Culture (Wb) - Left Forearm Blood Culture - Preliminary 09/18/24 13:30 Urine, Clean Catch Urine Culture - Final Culture exhibits no growth. 09/19/24 10:45 Stool Enteric Bacteriology - Final 09/19/24 10:45 Stool Clostridioides difficile (PCR) - Final 09/18/24 13:45 Mucosa - Nose SARS-CoV-2, Influenza & RSV (PCR) - Final Radiography Diagnostic Testing: Radiology Impression Abdomen Ultrasound 09/21/24 07:24 IMPRESSION: Heterogeneous echotexture of the liver parenchyma. Edematous anterior gallbladder wall measuring 5 mm. Cholecystitis should be ruled out. Reading Location: [place] [address] Rhythm Strip Rhythm Strip: Sinus Rhythm Rate: 90 Ectopy: None Physical Exam Const oriented x3 and no apparent distress Resp normal respiratory effort GI GI Narrative: Minimal tenderness with deep palpation of the right upper quadrant. Negative Renee sign Assessment & Plan Assessment/Plan (1) Acute acalculous cholecystitis: PLAN: Patient is 69-year-old male with history of metastatic prostate cancer on immunotherapy as well as supportive medications for his history of pancytopenia who is admitted for apparent gram-negative and gram-positive septicemia. He hasseen yesterday in consultation for a diagnosis of acalculouscholecystitis. Clinically, he continues to improve with minimal discomfort of his right upper quadrant. It is noted that he has some neutropenia today, however, this may be his baseline. I discussed with hospitalist service that management for acalculous cholecystitis with a patient that is responsive to conservative measures could follow continued conservative measures with antibiotics. However, I recommended once again reaching out to oncology to determine if this will in any way negatively impact patient's ability return to immunotherapy. I also reiterated that I would not recommend undertaking an operation in our facility given his history of thrombocytopenia and cirrhosis?to say nothing of the apparent advanced inflammatory change apparent on his intake imaging. Rohit Crawford MD General Surgery Endocrine Surgery Pager: [facility] [address] [place] [address], Outpatient [place], [address] [place] [address] Office: [phone] Charges/Coding Visit Charges Inpatient E&M: 15617 Subs Hosp L2 09/22/24 1637 Cosigner Signature (if applicable): CC: ~ Signed [facility]06-18-2025 Discharge summary [facility] Medical Records Department [address] [place] [address] Instructions for Home/Discharge Instructions 09/22/24 1614 MR#: [id number] Acct: [id number] Name: LUTHER CASTILLO II Rep #:[id number] : 1955 69 From: Ivan quinn MD PCP: Dr. López Ocampo MD Status :ADM IN Discharge Instructions Diet Discharge Diet: No restrictions DC O2, CPAP, BIPAP needs Home O2 Discharge instructions: No Dressing / Incision Discharge Activity: Return to Normal Activity Dressing / Incision Call your doctor if you observe: Fever of 101 or Higher, Shortness of breath, Dizziness, Fainting spells, Swelling in the ankles, Chest pain and Increased palpitations (irregular heartbeat) Follow Up Care Test Results: Test results from this visit will be discussed in further detail at your follow- up appointment, if applicable. Discharge Plan Admission Admit Date/Time: 09/18/24 15:12 Attending Provider: Ivan Nugent Primary Care Provider: López Ocampo Consulting Providers: Rohit Crawford Discharge Orders/Prescriptions Prescriptions: New cefdinir 300 mg capsule 300 mg PO BID Qty: 16 0RF Continued cimetidine [Tagamet HB] 200 mg tablet 200 mg PO BID Rx Instructions: administer with meals Eligard (6 month) 45 mg syringe 45 mg subcut .COMPLEX Rx Instructions: 45 mg subcutaneously EVERY 6 MONTHS; atorvastatin 20 mg tablet 20 mg PO QHS prednisone 5 mg tablet 5 mg PO BID tamsulosin 0.4 mg capsule 0.4 mg PO DAILY abiraterone 250 mg tablet 1,000 mg PO DAILY darbepoetin dagmar in polysorbat [Aranesp (in polysorbate)] See Rx Instructions IV .COMPLEX Patient Comments: PT UNSURE OF STRENGTH, BUT TOOK THIS MONTH (SEPTEMBER 2024) Rx Instructions: intravenously EVERY MONTH; Referrals / Follow Up: López Ocampo MD [Primary Care Provider] - Within 1 Week Rohit Crawford MD [Med Staff - Active Staff] - Within 2 Weeks (Unless you prefera [facility] physician) Disposition Disposition (needs filled in before D/C Order can be placed): Home, Self Care 09/22/24 1616Ivan Nugent MD CC: Dr. López Ocampo MD; Dr. Rohit Crawford MD ~ Signed [facility]06-18-2025 Progress note Author Rohit Crawford [facility] Note Date/Time September 22, 2024 4:37 pm [facility] Medical Records Department [address] [place] [address] Progress Note - Surgery 09/22/24 0720 MR#: [id number] Acct: [id number] Name: LUTHER CASTILLO II Rep #:[id number] : 1955 69 From: Rohit Polanco PCP: Dr. López Ocampo MD Status :ADM IN [id number] Subjective Subjective Patient seen and examined during AM rounds. He reports that he is not having any significant tenderness today. He reports that he slept well overnight. Objective Data Objective Data Vital Signs: Vital Signs Temp Pulse Resp BP Pulse Ox O2 Del Method O2 Flow Rate 98 F 69 16 125/77 H 95 Room Air 2 09/22/24 03:40 09/22/24 03:40 09/22/24 03:40 09/22/24 03:40 09/22/24 03:40 09/22/24 03:44 09/19/24 07:56 FiO2 2 09/19/24 09:00 Oxygen Flow Rate (L/min) 2 Oxygen Delivery Method Room Air Weight: 162 lb 0.636 oz Body Mass Index (BMI) 26.0 Intake & Output: Intake and Output for Last 24 Hours 09/20/24 09/21/2409/22/25 23:59 23:59 23:59 Intake Total 2728 / 2728 1767.00 / 1767.00 551.25 / 551.25 Output Total 1275 / 2125 1850 / 1850 500 / 500 Balance 1453 / 603 -83.00 / -83.00 51.25 / 51.25 Lab / Micro Data 09/22/24 05:12 09/22/24 05:12 Labs: Laboratory Results - last 24 hr 09/22/24 05:12: WBC 4.3 L, RBC 3.60 L, Hgb 9.2 L, Hct 29.3 L, MCV 81.4, MCH 25.6L, MCHC 31.4 L, RDW Std Deviation 61.1 H, RDW Coeff of Lydia 20.4 H, Plt Count 107L, MPV 9.6, Immature Gran % (Auto) 0.500, Neut % (Auto) 69.5, Lymph % (Auto) 25.6, Bullock % (Auto) 3.5, Eos % (Auto) 0.9, Baso % (Auto) 0.0, Absolute Neuts (auto) 3.0, Absolute Lymphs (auto) 1.11, Nucleated RBC % 0, Differential CommentSCANNED, Atypical Lymphocytes 1+, Anisocytosis 2+, Sodium 139, Potassium 4.0, Chloride 110 H, Carbon Dioxide 17.9 L, Anion Gap 10, BUN 31 H, Creatinine 0.77, Estim Creat Clear Calc 76.43, Est GFR (MDRD) Non-Af 96, BUN/Creatinine Ratio 39.9 H, Glucose 108 H, Calcium 7.7, Total Bilirubin 0.72, AST 44 H, ALT 40, Alkaline Phosphatase 156 H, Total Protein 5.5 L, Albumin 3.0 L, Globulin 2.4, Albumin/Globulin Ratio 1.3 Micro: Microbiology 09/18/24 13:40 Blood Culture (Wb) - Anticubital Left Blood Culture - Preliminary Gram positive organism Gram negative moi 09/18/24 13:40 Blood Culture (Wb) - Left Forearm Blood Culture - Preliminary 09/18/24 13:30 Urine, Clean Catch Urine Culture - Final Culture exhibits no growth. 09/19/24 10:45 Stool Enteric Bacteriology - Final 09/19/24 10:45 Stool Clostridioides difficile (PCR) - Final 09/18/24 13:45 Mucosa - Nose SARS-CoV-2, Influenza & RSV (PCR) - Final Radiography Diagnostic Testing: Radiology Impression Abdomen Ultrasound 09/21/24 07:24 IMPRESSION: Heterogeneous echotexture of the liver parenchyma. Edematous anterior gallbladder wall measuring 5 mm. Cholecystitis should be ruled out. Reading Location: [place] [address] Rhythm Strip Rhythm Strip: Sinus Rhythm Rate: 90 Ectopy: None Physical Exam Const oriented x3 and no apparent distress Resp normal respiratory effort GI GI Narrative: Minimal tenderness with deep palpation of the right upper quadrant. Negative Renee sign Assessment & Plan Assessment/Plan (1) Acute acalculous cholecystitis: PLAN: Patient is 69-year-old male with history of metastatic prostate cancer on immunotherapy as well as supportive medications for his history of pancytopenia who is admitted for apparent gram-negative and gram-positive septicemia. He hasseen yesterday in consultation for a diagnosis of acalculous cholecystitis. Clinically, he continues to improve with minimal discomfort of his right upper quadrant. It is noted that he has some neutropenia today, however, this may be his baseline. I discussed with hospitalist service that management for acalculous cholecystitis with a patient that is responsive to conservative measures could follow continued conservative measures with antibiotics. However, I recommended once again reaching out to oncology to determine if this will in any way negatively impact patient's ability return to immunotherapy. I also reiterated that I would not recommend undertaking an operation in our facility given his history of thrombocytopenia and cirrhosis?to say nothing of the apparent advanced inflammatory change apparent on his intake imaging. Rohit Crawford MD General Surgery Endocrine Surgery Pager: [facility] [address] [place] [address], [facility], [address] [place] [address] Office: [phone] Charges/Coding Visit Charges Inpatient E&M: 10788 Subs Hosp L2 09/22/24 4339 <Electronically signed by Rohit Crawford MD> Cosigner Signature (if applicable): CC: ~ Signed [facility] Work Phone: [phone] 818-787306-17-2025 Consult note Author Rohit Crawford [facility] Note Date/Time September 21, 2024 6:42 pm [facility] Medical Records Department [address] [place] [address] Consultation - Surgical 09/21/241826 MR#: [id number] Acct: [id number] Name: LUTHER CASTILLO II Rep #:[id number] : 1955 69 From: Rohit Polanco PCP: Dr. López Ocampo MD Status :ADM IN Location[place] [facility] [id number] Assessment & Plan Assessment/Plan (1) Acute acalculous cholecystitis: PLAN: Patient is 69-year-old male with history of metastatic prostate cancer on immunotherapy as well as supportive medications for his history of pancytopenia who is admitted for apparent gram-negative and gram-positive septicemia. Initially there was no source for his sepsis, however, reinvestigation of the abdomen showed evidence of cholecystitis on ultrasound imaging. When I reviewedpatient's CT imaging from his intake evaluation I believe there was evidence of gallbladder wall thickening with those pictures as well. In a dedicated review of patient's ultrasound imaging with radiology they confirmed the presence of anedematous wall but do not find any signs of emphysema or necrosis. They also did not find any evidence of cholelithiasis. Patient initially presented with mild elevation of his liver function testing, T. bili, and alkaline phosphatase but his alkaline phosphatase remains elevated and there was no ductal dilatationon either his CT or ultrasound imaging. Therefore, given patient's clinical status I am inclined to pursue a diagnosis of acalculous cholecystitis. I discussed the management of this condition with he and his spouse. Specifically, I shared that for patients with certain clinical findings (necrosis, emphysematous changes of the wall, or gallbladder perforation) cholecystectomy is required where the patient is an acceptable surgical candidate. For patients where they failed to respond to conservative measures and are not deemed a surgical candidate then we must consider cholecystostomy tube placement. However, Mr. Castillo's case he appears to have responded to conservative measures and so I am inclined to pursue this course of action as the consideration for cholecystectomy would include a number of patient-specificrisks including cirrhotic morphology on imaging, thrombocytopenia, duration of symptoms extending beyond 72 hours, concurrent steroid therapy for stress dose, concurrent immunotherapy... Given the complexity of Mr. Castillo's care I discussed treatment implications with primary hospitalist, Dr. Nugent and recommended we consider involvement of hematology oncology as well for their input. Patient's primary concern is that he is able to return to immunotherapy and given the rarity of his condition and my unfamiliarity with his treatment regimen, I am unable to comment as to which option is most preferable given his complete clinical picture. For now recommend continuing dietary restriction with IV antibiotics and will continue with serial abdominal exams as we also await final results of his blood cultures. Rohit Crawford MD General Surgery Endocrine Surgery Pager: [facility] [address] [place] [address], Outpatient [place], [address] [place] [address] Office: [phone] HPI Consult Data Date of Consult: 09/21/24 HPI Narrative Reason for Consultation: Concern for cholecystitis HPI Narrative: LUTHER CASTILLO, is a 69 M who is known to me for a history of appendicitis status post laparoscopic appendectomy February 05, 2024 who presented to [facility] on 09/18/2024 due to complaints of dizziness and lethargy. Workup was conducted for suspicion for sepsis. ER workup notes patient denies any abdominal pain. Given hypotension patient required mission to the intensivecare unit for the last 3 days. He has responded to supportive care and was ableto be moved to regular medical surgical floor yesterday. Blood cultures are preliminary still but show polymicrobial growth. CT scan performed as part of intake investigation was read as demonstrating a large calcified gallstone of the gallbladder but otherwise no acute findings. However, without a source for patient's bacteremia hospitalist ordered right upper quadrant ultrasound imaging and this was read by radiology as concerning for cholecystitis given his edematous wall presentation. 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 Patient follows with Dr. Herring of oncology for treatment. Patient reports undergoing a procedure to try to stimulate healing of a prior Mohs procedure of the scalp 10 weeks ago just prior to his admission. [facility] Medical History (Updated 09/21/24 @ 18:[address] Rohit Crawford MD) Cancer Dizziness Home Medications ?Medication ?Instructions ?Recorded ?Last Taken ?Type abiraterone 250 mg tablet 1,000 mg PO DAILY prostate c ancer 12/11/23 09/17/24 History atorvastatin 20 mg tablet 20 mg PO QHS cholesterol 08/2809/17/24 History prednisone 5 mg tablet 5 mg PO BID prostate 4 09/17/24 History tamsulosin 0.4 mg capsule 0.4 mg PO DAILY prostate 08/2809/17/24 History cimetidine 200 mg tablet (Tagamet 200 mg PO BID 09/17/24 History HB) leuprolide acetate (6 month) 45 mg 45 mg subcut .COMPL EX 02/05/24 09/15/24 History (6 month) subcutaneous syringe (Eligard) darbepoetin dagmar in polysorbat See Rx Instructions IV .COMPLEX 09/18/24 Unknown History Allergy/AdvReac Type Severity Reaction Status Date / Time No Known Allergies Allergy Verified 09/18/24 12:29 Family History (Updated 09/18/24 @ 16:[address] Ivan Nugent MD) Other Cancer Surgical History (Updated 09/18/24 @ 16:[address] Ivan Nugent MD) Status post Mohs surgery Social History Smoking Status: Never smoker Physical Exam Const alert and oriented x3 General Appearance: cooperative HEENT HEENT Narrative: Large bandage to top of head Resp normal respiratory effort GI GI Narrative: Minimally distended, soft, mild tenderness with deep palpation of the right upper quadrant. Negative Renee sign. Lab / Micro Data 09/21/24 04:30 09/21/24 04:30 Labs: Laboratory Results - last 24 hr 09/21/24 04:30: WBC 6.1, RBC 3.60 L, Hgb 9.0 L, Hct 28.7 L, MCV 79.7 L, MCH 25.0L, MCHC 31.4 L, RDW Std Deviation 58.4 H, RDW Coeff of Lydia 20.1 H, Plt Count 85 L, MPV 9.2, Immature Gran % (Auto) 0.500, Neut % (Auto) 82.7 H, Lymph % (Auto) 13.0 L, Bullock % (Auto) 3.0, Eos % (Auto) 0.8, Baso % (Auto) 0.0, Absolute Neuts (auto) 5.1, Absolute Lymphs (auto) 0.79 L, Nucleated RBC % 0, Differential Comment SCANNED, Atypical Lymphocytes 1+, Platelet Estimate MKD DEC, Anisocytosis 2+, Sodium 140, Potassium 4.0, Chloride 113 H, Carbon Dioxide 16.5 L, Anion Gap 11, BUN 35 H, Creatinine 0.86, Estim Creat Clear Calc 71.09, Est GFR (MDRD) Non-Af 93, BUN/Creatinine Ratio 40.7 H, Glucose 123 H, Calcium 7.5 L,Total Bilirubin 0.70, AST 40 H, ALT 33, Alkaline Phosphatase 167 H, Total Protein 5.6 L, Albumin 3.0 L, Globulin 2.6, Albumin/Globulin Ratio 1.1, Vancomycin Trough 8.9 Micro: Microbiology 09/18/24 13:40 Blood Culture (Wb) - Anticubital Left Blood Culture - Preliminary Gram positive organism Gram negative moi 09/18/24 13:40 Blood Culture (Wb) - Left Forearm Blood Culture - Preliminary Rhythm Strip Rhythm Strip: Sinus Rhythm Rate: 90 Ectopy: None Imaging Radiology Impression Abdomen Ultrasound 09/21/24 07:24 IMPRESSION: Heterogeneous echotexture of the liver parenchyma. Edematous anterior gallbladder wall measuring 5 mm. Cholecystitis should be ruled out. Reading Location: [place] [address] Charges/Coding Visit Charges Inpatient E&M: 78954 Init Hosp L2 09/21/24 1842 <Electronically signed by Rohit Crawford MD> Cosigner Signature (if applicable): CC: Dr. López Ocampo MD~ Signed [facility] Work Phone: [phone]) 169-551906-17-2025 Consult note [facility] Medical Records Department [address] [place] [address] Consultation - Surgical 09/21/24 1827 MR#: [id number] Acct: [id number] Name: LUTHER CASTILLO II Rep #:[id number] : 1955 69 From: Rohit Polanco PCP: Dr. López Ocampo MD Status :ADM IN Location[place] [facility] [place]-0 Assessment & Plan Assessment/Plan (1) Acute acalculous cholecystitis: PLAN: Patient is 69-year-old male with history of metastatic prostate cancer on immunotherapy as well as supportive medications for his history of pancytopenia who is admitted for apparent gram-negative and gram-positive septicemia. Initially there was no source for his sepsis, however, reinvestigation of the abdomen showed evidence of cholecystitis on ultrasound imaging. When I reviewedpatient'sCT imaging from his intake evaluation I believe there was evidence of gallbladder wall thickening with those pictures as well. In a dedicated review of patient's ultrasound imaging with radiology they confirmed the presence of anedematous wall but do not find any signs of emphysema or necrosis. They also did not find any evidence of cholelithiasis. Patient initially presented with mild elevation of his liver function testing, T. bili, and alkaline phosphatase but his alkaline phosphatase remains elevated and there was no ductal dilatationon either his CT or ultrasound imaging. Therefore, given patient's clinical status I am inclined to pursue a diagnosis of acalculous cholecystitis. I discussed the management of this condition with he and his spouse. Specifically, I shared that for patients with certain clinical findings (necrosis, emphysematous changes of the wall, or gallbladder perforation) cholecystectomy is required where the patient is an acceptable surgical candidate. For patients where they failed to respond to conservative measures and are not deemed a surgical candidate then we must consider cholecystostomy tube placement. However, Mr. Castillo's case he appears to haveresponded to conservative measures and so I am inclined to pursue this course of action as the consideration for cholecystectomy would include a number of patient- specificrisks including cirrhotic morphology on imaging, thrombocytopenia, duration of symptoms extending beyond 72 hours, concurrent steroid therapy for stress dose, concurrent immunotherapy... Given the complexity of Mr. Castillo's care I discussed treatment implications with primary hospitalist, Dr. Nugent and recommended we consider involvement of hematology oncology as well for their input. Patient's primary concern is that he is able to return to immunotherapy and given the rarity of his condition and my unfamiliarity with his treatment regimen, I am unable to comment as to which option is most preferable given his complete clinical picture. For now recommend continuing dietary restriction with IV antibiotics and willcontinue with serial abdominal exams as we also await final results of his blood cultures. Rohit Crawford MD General Surgery Endocrine Surgery Pager: [facility] [address] [place] [address], Outpatient [place], [address] [place] [address] Office: [phone] HPI Consult Data Date of Consult: 09/21/24 HPI Narrative Reason for Consultation: Concern for cholecystitis HPI Narrative: LUTHER CASTILLO, is a 69 M who is known to me for a history of appendicitis status post laparoscopicappendectomy February 05, 2024 who presented to [facility] on 09/18/2024 due to complaints of dizziness and lethargy. Workup was conducted for suspicion for sepsis. ER workup notes patient denies any abdominal pain. Given hypotension patient required mission to the intensivecare unit for the last 3 days. He has responded to supportive care and was ableto be moved to regular medical surgical floor yesterday. Blood cultures are preliminary still but show polymicrobial growth. CT scan performed as part of intake investigation was read as demonstrating a large calcified gallstone of the gallbladder but otherwise no acute findings. However, without a source for patient's bacteremia hospitalist ordered right upper quadrant ultrasound imaging and this was read by radiology as concerning for cholecystitis given his edematous wall presentation. 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 Patient follows with Dr. Herring of oncology for treatment. Patient reports undergoing a procedure to try to stimulate healing of a prior Mohs procedure of thescalp 10 weeks ago just prior to his admission. [facility] Medical History (Updated 09/21/24 @ 18:[address] Rohit Crawford MD) Cancer Dizziness Home Medications ?Medication ?Instructions ?Recorded ?Last Taken ?Type abiraterone 250 mg tablet 1,000 mg PO DAILY prostate c ancer 12/11/23 09/17/24 History atorvastatin 20 mg tablet 20 mg PO QHS cholesterol 08/2809/17/24 History prednisone 5 mg tablet 5 mg PO BID prostate 4 09/17/24 History tamsulosin 0.4 mg capsule 0.4 mg PO DAILY prostate 08/2809/17/24 History cimetidine 200 mg tablet (Tagamet 200 mg PO BID 09/17/24 History HB) leuprolide acetate (6 month) 45 mg 45 mg subcut .COMPL EX 02/05/24 09/15/24 History (6 month) subcutaneous syringe (Eligard) darbepoetin dagmar in polysorbat See Rx Instructions IV .COMPLEX 09/18/24 Unknown History Allergy/AdvReac Type Severity Reaction Status Date / Time No Known Allergies Allergy Verified 09/18/24 12:29 Family History (Updated 09/18/24 @ 16:[address] Ivan Nugent MD) Other Cancer Surgical History (Updated 09/18/24 @ 16:[address] Ivan Nugent MD) Status post Mohs surgery Social History Smoking Status: Never smoker Physical Exam Const alert and oriented x3 General Appearance: cooperative HEENT HEENT Narrative: Large bandage to top of head Resp normal respiratory effort GI GI Narrative: Minimally distended, soft, mild tenderness with deep palpation of the right upper quadrant. Negative Renee sign. Lab / Micro Data 09/21/24 04:30 09/21/24 04:30 Labs: Laboratory Results - last 24 hr 09/21/24 04:30: WBC 6.1, RBC 3.60 L, Hgb 9.0 L, Hct 28.7 L, MCV 79.7 L, MCH 25.0L, MCHC 31.4 L, RDWStd Deviation 58.4 H, RDW Coeff of Lydia 20.1 H, Plt Count 85 L, MPV 9.2, Immature Gran % (Auto) 0.500, Neut % (Auto) 82.7 H, Lymph % (Auto) 13.0 L, Bullock % (Auto) 3.0, Eos % (Auto) 0.8, Baso % (Auto) 0.0, Absolute Neuts (auto) 5.1, Absolute Lymphs (auto) 0.79 L, Nucleated RBC % 0, Differential Comment SCANNED, Atypical Lymphocytes 1+, Platelet Estimate MKD DEC, Anisocytosis 2+, Sodium 140, Potassium 4.0, Chloride 113 H, Carbon Dioxide 16.5 L, Anion Gap 11, BUN 35 H, Creatinine 0.86, Estim Creat Clear Calc 71.09, Est GFR (MDRD) Non-Af 93, BUN/Creatinine Ratio 40.7 H, Glucose 123 H, Calcium 7.5 L, Total Bilirubin 0.70, AST 40 H, ALT 33, Alkaline Phosphatase 167 H, Total Protein 5.6 L, Albumin 3.0 L, Globulin 2.6, Albumin/Globulin Ratio 1.1, Vancomycin Trough 8.9 Micro: Microbiology 09/18/24 13:40 Blood Culture (Wb) - Anticubital Left Blood Culture - Preliminary Gram positive organism Gram negative moi 09/18/24 13:40 Blood Culture (Wb) - Left Forearm Blood Culture - Preliminary Rhythm Strip Rhythm Strip: Sinus Rhythm Rate: 90 Ectopy: None Imaging Radiology Impression Abdomen Ultrasound 09/21/24 07:24 IMPRESSION: Heterogeneous echotexture of the liver parenchyma. Edematous anterior gallbladder wall measuring 5 mm. Cholecystitis should be ruled out. Reading Location: [place] [address] Charges/Coding Visit Charges Inpatient E&M: 80222 Init Hosp L2 09/21/24 1842 Cosigner Signature (if applicable): CC: Dr. López Ocampo MD~ Signed [facility]06-17-2025 Telephone encounter Note* Telephone Encounter - Sahara Mcneill LPN - 09/21/2024 4:11 PM EDT Patient's son aware of all information. Sahara Mcneill LPN [facility]06-17-2025 Miscellaneous Notes* Telephone Encounter - Sahara Mcneill LPN - 09/21/2024 4:11 PM EDT Patient's son aware of all information. Sahara Mcneill LPN * Telephone Encounter - Tee Ellis - 09/21/2024 3:53 PM EDT Pt seen here for Prostate Ca- per previous note under good control last PSA was undetectable. Defer to inpatient team. No concerns from a prostate cancer perspective. Tee Ellis APRN.RANGE SCIENTIST * Telephone Encounter - Gabi Reyna - 09/21/2024 2:55 PM EDT Edmundo called stating that patient was in ICU at [facility] and is now in Step down on 3rd floor. He states they are wanting to remove patient's gallbladder. He is asking if this is a concern since patient is a stage 4 cancer patient. He would like to speak with someone as soon as possible. [facility] Telephone encounter Note * Telephone Encounter - Tee Ellis - 09/21/2024 3:53 PM EDT Pt seen here for Prostate Ca- per previous note under good control last PSA was undetectable. Defer to inpatient team. No concerns from a prostate cancer perspective. Tee Ellis APRN.RANGE SCIENTIST [facility] Work Phone: [phone] Telephone encounter Note* Telephone Encounter - Gabi Reyna - 09/21/2024 2:55 PM EDT Edmundo called stating that patient was in ICU at [facility] and is now in Step down on 3rd floor. He states they are wanting to remove patient's gallbladder. He is asking if this is a concern since patient is a stage 4 cancer patient. He would like to speak with someone as soon as possible. [facility] Work Phone: [phone] 371-177206-17-2025 Radiology Diagnostic study note [facility] Imaging Services [address], [place] [id number] Abdomen Limited MR#: [id number] Acct: [id number] Name: JONATHAN,MURALI II Rep #: [id number] : 1955 M 69 From: Collin Krause MD PCP: Dr. López Ocampo MD Status: ADM IN Study:Abdomen Limited Date of Exam: 09/05 10/29 Exam# [id number] Ordering Dr: Ivan Nugent MD PROCEDURE: ABDOMEN LIMITED 09/21/2024 REASON FOR EXAM: UNKNOWN SOURCE INFECTIOM, RUQ PAIN TECHNIQUE: ABDOMEN LIMITED COMPARISON: Prior CT scan of the abdomen and pelvis dated September 19, 2024. FINDINGS: Liver: Coarsened hepatic echotexture with a nodular liver contour suggestive of cirrhosis. Gallbladder: Gallbladder wall thickening especially along its anterior aspect. Cholecystitis shouldbe ruled out. The gallbladder wall measures 5 mm. Common bile duct: Normal measuring 5 mm. . Pancreas: Visualized portions are sonographically unremarkable. Kidneys: The right kidney measures 10.8 cm 5.5 cm 4.2 cm. Renal cortex measures1.8 cm. US/Abdomen Limited IMPRESSION: Heterogeneous echotexture of the liver parenchyma. Edematous anterior gallbladder wall measuring 5 mm. Cholecystitis should be ruled out. Reading Location: [place] [address] CC: Dr. López Ocampo MD; Dr. Ivan Nugent MD ~ Tool And Die Supervisor: Signed [facility]06-17-2025 Progress note Author Ivan Nugent [facility] Note Date/Time September 21, 2024 10:0 6am [facility] Medical Records Department [address] [place] [address] Progress Note - Hospitalist 09/21/24 1004 MR#: [id number] Acct: [id number] Name: LUTHER CASTILLO II Rep #:[id number] : 1955 69 From: Ivan quinn MD PCP: Dr. López Ocampo MD Status :ADM IN Location: [facility] HH481-3 Subjective Subjective Doing well today, feels much better than he did yesterday. LFTs are improving Objective Data Objective Data Vital Signs: Vital Signs Temp Pulse Resp BP Pulse Ox O2 Del Method O2 Flow Rate 97.8 F 75 18 123/78 H 98 Room Air 2 09/21/24 08:06 09/21/24 08:06 09/21/24 08:06 09/21/24 08:06 09/21/24 08:06 09/21/24 08:10 09/19/24 07:56 FiO2 2 09/19/24 09:00 Oxygen Flow Rate (L/min) 2 Oxygen Delivery Method Room Air Weight: 162 lb 0.636 oz Body Mass Index (BMI) 26.0 Intake & Output: Intake and Output for Last 24 Hours 09/20/24 09/21/24 09/22/24 03:59 03:59 03:59 Intake Total 3187.97 / 3187.97 2565 / 2565 715 / 715 Output Total 2700 / 2700 1650 / 1650 300 / 300 Balance 487.97 / 487.97 915 / 915 415 / 415 Lab / Micro Data 09/21/24 04:30 09/21/24 04:30 Labs: Laboratory Results - last 24 hr 09/20/24 07:45: Blood Type B NEGATIVE, Antibody Screen NEGATIVE, Crossmatch See Detail 09/21/24 04:30: WBC 6.1, RBC 3.60 L, Hgb 9.0 L, Hct 28.7 L, MCV 79.7 L, MCH 25.0L, MCHC 31.4 L, RDW Std Deviation 58.4 H, RDW Coeff of Lydia 20.1 H, Plt Count 85 L, MPV 9.2, Immature Gran % (Auto) 0.500, Neut % (Auto) 82.7 H, Lymph % (Auto) 13.0 L, Bullock % (Auto) 3.0, Eos % (Auto) 0.8, Baso % (Auto) 0.0, Absolute Neuts (auto) 5.1, Absolute Lymphs (auto) 0.79 L, Nucleated RBC % 0, Differential Comment SCANNED, Atypical Lymphocytes 1+, Platelet Estimate MKD DEC, Anisocytosis 2+, Sodium 140, Potassium 4.0, Chloride 113 H, Carbon Dioxide 16.5 L, Anion Gap 11, BUN 35 H, Creatinine 0.86, Estim Creat Clear Calc 71.09, Est GFR (MDRD) Non-Af 93, BUN/Creatinine Ratio 40.7 H, Glucose 123 H, Calcium 7.5 L,Total Bilirubin 0.70, AST 40 H, ALT 33, Alkaline Phosphatase 167 H, Total Protein 5.6 L, Albumin 3.0 L, Globulin 2.6, Albumin/Globulin Ratio 1.1, Vancomycin Trough 8.9 Micro: Microbiology 09/18/24 13:40 Blood Culture (Wb) - Anticubital Left Blood Culture - Preliminary Gram positive organism 09/18/24 13:40 Blood Culture (Wb) - Left Forearm Blood Culture - Preliminary 09/18/24 13:30 Urine, Clean Catch Urine Culture - Final Culture exhibits no growth. 09/19/24 10:45 Stool Enteric Bacteriology - Final 09/19/24 10:45 Stool Clostridioides difficile (PCR) - Final 09/18/24 13:45 Mucosa - Nose SARS-CoV-2, Influenza & RSV (PCR) - Final Rhythm Strip Rhythm Strip: Sinus Rhythm Rate: 90 Ectopy: None Physical Exam Narrative General: Alert, Oriented x3, Cooperative, No apparent distress HEENT: Atraumatic, PERRLA, EOMI, Normocephalic, Mohs surgery on his right scalp dressing intact with fluid collection underneath does not appear infected, no surrounding erythema Oral: Moist Mucosa Neck: Supple, No JVD Lungs: Diminished, Normal air movement, No rhonchi, No wheeze, No rales Cardiovascular: Regular rate, Regular Rhythm, Normal S1, Normal S2, No murmurs Abdomen: Soft, Non Tender, Non-Distended, No Hepato-splenomegaly Extremities: No edema, Capillary Refill Less than 3 Seconds Skin: No rashes, No breakdown Musculoskeletal: No Tenderness to Palpation of Joints or Extremities Neurological: No focal neurological deficits, moves all extremities Psych/Mental Status: Normal Affect, Appropriate Assessment & Plan Assessment/Plan (1) Sepsis: (2) Acute kidney injury: PLAN: Plan 1. Severe sepsis of unclear source/STACI ?He received 3 L of fluid in the ER with a beautiful response to his blood pressure ? Will decrease IV fluids but will continue as he is getting a CT scan of his abdomen and pelvis ? Will administer broad-spectrum antibiotics with Vanco and Zosyn ? Blood cultures with gram-positive cocci in clusters and gram-negative rods, repeat cultures also pending. Still waiting for final results ? Urine culture is no growth ? Will add oral prednisone as he takes 5 mg of prednisone twice daily, as a stress dose ? Will have wound care evaluate his Mohs surgical site while here ?STACI has resolved ? As his mean arterial pressure never dropped below 60 regardless of the fact that he was started on pressors overnight into the I do not believe that this constitutes septic shock, given how transient pause. Midodrine has been discontinued as well 2. Metastatic prostate cancer/anemia of chronic disease ? He has been having headaches and he did tell his oncologist about it who did not feel that it warranted imaging at this time as they felt that it was relatedto his Mohs surgery, however if this continues would recommend MRI ? Will stress dose of steroids with prednisone ? Will hold his cancer medications ? 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 Hyperlipidemia ? Can continue his Lipitor ? Stable 4. BPH with obstruction ? Can plan for voiding trial prior to discharge ? Continue with Flomax DVT: Heparin Charges/Coding Visit Charges Inpatient E&M: 48572 Subs Hosp L2 09/21/24 1006 <Electronically signed by Ivan Nugent MD> Cosigner Signature (if applicable): CC: ~ Signed [facility] Work Phone: 1(155) 554-393006-17-2025 Progress note [facility] Medical Records Department [address] [place] [address] Progress Note - Hospitalist 09/21/24 1004 MR#: [id number] Acct: [id number] Name: LUTHER CASTILLO II Rep #:[id number] : 1955 69 From: Ivan quinn MD PCP: Dr. López Ocampo MD Status :ADM IN [facility] Subject[facility] Subjective Doing well today, feels much better than he did yesterday. LFTs are improving Objective Data Objective Data Vital Signs: Vital Signs Temp Pulse Resp BP Pulse Ox O2 Del Method O2 Flow Rate 97.8 F 75 18 123/78 H 98 Room Air 2 09/21/24 08:06 09/21/24 08:06 09/21/24 08:06 09/21/24 08:06 09/21/24 08:06 09/21/24 08:10 09/19/24 07:56 FiO2 2 09/19/24 09:00 Oxygen Flow Rate (L/min) 2 Oxygen Delivery Method Room Air Weight: 162 lb 0.636 oz Body Mass Index (BMI) 26.0 Intake & Output: Intake and Output for Last 24 Hours 09/20/24 09/21/24 09/22/24 03:59 03:59 03:59 Intake Total 3187.97 / 3187.97 2565 / 2565 715 / 715 Output Total 2700 / 2700 1650 / 1650 300 / 300 Balance 487.97 / 487.97 915 / 915 415 / 415 Lab / Micro Data 09/21/24 04:30 09/21/24 04:30 Labs: Laboratory Results - last 24 hr 09/20/24 07:45: Blood Type B NEGATIVE, Antibody Screen NEGATIVE, Crossmatch See Detail 09/21/24 04:30: WBC 6.1, RBC 3.60 L, Hgb 9.0 L, Hct 28.7 L, MCV 79.7 L, MCH 25.0L, MCHC 31.4 L, RDWStd Deviation 58.4 H, RDW Coeff of Lydia 20.1 H, Plt Count 85 L, MPV 9.2, Immature Gran % (Auto) 0.500, Neut % (Auto) 82.7 H, Lymph % (Auto) 13.0 L, Bullock % (Auto) 3.0, Eos % (Auto) 0.8, Baso % (Auto) 0.0, Absolute Neuts (auto) 5.1, Absolute Lymphs (auto) 0.79 L, Nucleated RBC % 0, Differential Comment SCANNED, Atypical Lymphocytes 1+, Platelet Estimate MKD DEC, Anisocytosis 2+, Sodium 140, Potassium 4.0, Chloride 113 H, Carbon Dioxide 16.5 L, Anion Gap 11, BUN 35 H, Creatinine 0.86, Estim Creat Clear Calc 71.09, Est GFR (MDRD) Non-Af 93, BUN/Creatinine Ratio 40.7 H, Glucose 123 H, Calcium 7.5 L, Total Bilirubin 0.70, AST 40 H, ALT 33, Alkaline Phosphatase 167 H, Total Protein 5.6 L, Albumin 3.0 L, Globulin 2.6, Albumin/Globulin Ratio 1.1, Vancomycin Trough 8.9 Micro: Microbiology 09/18/24 13:40 Blood Culture (Wb) - Anticubital Left Blood Culture - Preliminary Gram positive organism 09/18/24 13:40 Blood Culture (Wb) - Left Forearm Blood Culture - Preliminary 09/18/24 13:30 Urine, Clean Catch Urine Culture - Final Culture exhibits no growth. 09/19/24 10:45 Stool Enteric Bacteriology - Final 09/19/24 10:45 Stool Clostridioides difficile (PCR) - Final 09/18/24 13:45 Mucosa - Nose SARS-CoV-2, Influenza & RSV (PCR) - Final Rhythm Strip Rhythm Strip: Sinus Rhythm Rate: 90 Ectopy: None Physical Exam Narrative General: Alert, Oriented x3, Cooperative, No apparent distress HEENT: Atraumatic, PERRLA, EOMI, Normocephalic, Mohs surgery on his right scalp dressing intact with fluid collection underneath does not appear infected, no surrounding erythema Oral: Moist Mucosa Neck: Supple, No JVD Lungs: Diminished, Normal air movement, No rhonchi, No wheeze, No rales Cardiovascular: Regular rate, Regular Rhythm, Normal S1, Normal S2, No murmurs Abdomen: Soft, Non Tender, Non-Distended, No Hepato-splenomegaly Extremities: No edema, Capillary Refill Less than 3 Seconds Skin: No rashes, No breakdown Musculoskeletal: No Tenderness to Palpation of Joints or Extremities Neurological: No focal neurological deficits, moves all extremities Psych/Mental Status: Normal Affect, Appropriate Assessment & Plan Assessment/Plan (1) Sepsis: (2) Acute kidney injury: PLAN: Plan 1. Severe sepsis of unclear source/STACI ?He received 3 L of fluid in the ER with a beautiful response to his blood pressure ? Will decrease IV fluids but will continue as he is getting a CT scan of his abdomen and pelvis ? Will administer broad-spectrum antibiotics with Vanco and Zosyn ? Blood cultures with gram-positive cocci in clusters and gram-negative rods, repeat cultures also pending. Still waiting for final results ? Urine culture is no growth ? Will add oral prednisone as he takes 5 mg of prednisone twice daily, as a stress dose ? Will have wound care evaluate his Mohs surgical site while here ?STACI has resolved ? As his mean arterial pressure never dropped below 60 regardless of the fact that he was started on pressors overnight into the I do not believe that this constitutes septic shock, given how transient pause. Midodrine has been discontinued as well 2. Metastatic prostate cancer/anemia of chronic disease ? He has been having headaches and he did tell his oncologist about it who did not feel that it warranted imaging at this time as they felt that it was relatedto his Mohs surgery, however if this continues would recommend MRI ? Will stress dose of steroids with prednisone ? Will hold his cancer medications ? 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 Hyperlipidemia ? Can continue his Lipitor ? Stable 4. BPH with obstruction ? Can plan for voiding trial prior to discharge ? Continue with Flomax DVT: Heparin Charges/Coding Visit Charges Inpatient E&M: 50654 Subs Hosp L2 09/21/24 1006 Cosigner Signature (if applicable): CC: ~ Signed [facility]06-17-2025 Consult note Author Luther Lima [facility] Note Date/Time September 21, 2024 5:52 am [facility] Medical Records Department [address] [place] [address] Pharmacokinetic/Renal -Consult 09/21/24 0551 MR#: [id number] Acct: [id number] Name: LUTHER CASTILLO II Rep #:[id number] : 1955 69 From: Luther Darnell od PCP: Dr. López Ocampo MD Status :ADM IN Location: [place] [address] Consult Antibiotic Management Pharmacy has been consulted to manage selected antibiotic: Vancomycin Type of Intervention Type of Consult: Follow-up Labs Labs: Sodium 140 mmol/L (133-145) 09/21/24 04:30 Potassium 4.0 mmol/L (3.3-5.1) 09/21/24 04:30 Chloride 113 mmol/L (98-108) H 09/21/24 04:30 Carbon Dioxide 16.5 mmol/L (21.0-32.0) L 09/21/24 04:30 Anion Gap 11 (5-15) 09/21/24 04:30 BUN 35 mg/dL (4-19) H 09/21/24 04:30 Creatinine 0.86 mg/dL (0.70-1.20) 09/21/24 04:30 Est GFR (MDRD) Non-Af 93 (>60) 09/21/24 04:30 BUN/Creatinine Ratio 40.7 RATIO (10-20) H 09/21/24 04:30 Glucose 123 mg/dL (70-99) H 09/21/24 04:30 Vancomycin Trough 8.9 ug/mL (5.0-15.0) 09/21/24 04:30 Microbiology Microbiology: Microbiology 09/18/24 13:30 Urine, Clean Catch Urine Culture - Final Culture exhibits no growth. 09/18/24 13:40 Blood Culture (Wb) - Anticubital Left Blood Culture - Preliminary 09/19/24 10:45 Stool Enteric Bacteriology - Final 09/19/24 10:45 Stool Clostridioides difficile (PCR) - Final 09/18/24 13:40 Blood Culture (Wb) - Left Forearm Blood Culture - Preliminary 09/18/24 13:45 Mucosa - Nose SARS-CoV-2, Influenza & RSV (PCR) - Final Goal Trough Goal Trough: 15-20 mcg/mL Pharmacy Plan for Drug Dosing Pharmacy Plan for Drug Dosing: Pharmacy Service will continue to monitor and adjust dosing as required. TROUGH 8.9 @ 0430. INCREASE TO 750MG Q12H AND DRAW TROUGH PRIOR TO 4TH DOSE Follow-Up Labs Follow-Up Labs: Trough: Vancomycin Date/Time Labs Ordered Labs to be done on [date and time ordered]: 09/22 @ 1700 09/21/2452 <Electronically signed by Luther bailey> Date _ Luther Lima Cosignmoose Signature (if applicable): Date CC: ~ Signed [facility] Work Phone: 1(327) 626-174006-17-2025 Consult note [facility] Medical Records Department [address] [place] [address] Pharmacokinetic/Renal -Consult 09/21/2451 MR#: [id number] Acct: [id number] Name: LUTHER CASTILLO II Rep #:[id number] : 1955 69 From: Luther Darnell od PCP: Dr. López Ocampo MD Status :ADM IN Y Location: [facility] RL327-8 Consult Antibiotic Management Pharmacy has been consulted to manage selected antibiotic: Vancomycin Type of Intervention Type of Consult: Follow-up Labs Labs: Sodium 140 mmol/L (133-145) 09/21/24 04:30 Potassium 4.0 mmol/L (3.3-5.1) 09/21/24 04:30 Chloride 113 mmol/L (98-108) H 09/21/24 04:30 Carbon Dioxide 16.5 mmol/L (21.0-32.0) L 09/21/24 04:30 Anion Gap 11 (5-15) 09/21/24 04:30 BUN 35 mg/dL (4-19) H 09/21/24 04:30 Creatinine 0.86 mg/dL (0.70-1.20) 09/21/24 04:30 Est GFR (MDRD) Non-Af 93 (>60) 09/21/24 04:30 BUN/Creatinine Ratio 40.7 RATIO (10-20) H 09/21/24 04:30 Glucose 123 mg/dL (70-99) H 09/21/24 04:30 Vancomycin Trough 8.9 ug/mL (5.0-15.0) 09/21/24 04:30 Microbiology Microbiology: Microbiology 09/18/24 13:30 Urine, Clean Catch Urine Culture - Final Culture exhibits no growth. 09/18/24 13:40 Blood Culture (Wb) - Anticubital Left Blood Culture - Preliminary 09/19/24 10:45 Stool Enteric Bacteriology - Final 09/19/24 10:45 Stool Clostridioides difficile (PCR) - Final 09/18/24 13:40 Blood Culture (Wb) - Left Forearm Blood Culture - Preliminary 09/18/24 13:45 Mucosa - Nose SARS-CoV-2, Influenza & RSV (PCR) - Final Goal Trough Goal Trough: 15-20 mcg/mL Pharmacy Plan for Drug Dosing Pharmacy Plan for Drug Dosing: Pharmacy Service will continue to monitor and adjust dosing as required. TROUGH 8.9 @ 0430. INCREASE TO 750MG Q12H AND DRAW TROUGH PRIOR TO DOSE Follow-Up Labs Follow-Up Labs: Trough: Vancomycin Date/Time Labs Ordered Labs to be done on [date and time ordered]: 09/22 @ 1700 09/21/24 0552 lood> Date _ Luther Lima Cosigner Signature (if applicable): Date CC: ~ Signed [facility]06-16-2025 Telephone encounter Note* Telephone Encounter - Abigail Ferrer LPN - 09/20/2024 1:09 PM EDT Prescription Refill Information The patient has been identified by name and date of : Yes Caregiver verified no other encounters exist for this prescription request: Yes Caregiver confirmed with patient/requestor that no other refills are due, in the near future, with this provider at this time: Yes The last office visit in the department: 09/08/2024 Does the patient have a future office visit with this provider/department: Yes Requested Prescriptions Pending Prescriptions Disp Refills abiraterone 250 mg tablet [Pharmacy Med Name: ABIRATERONE ACETATE 250 MG TAB] 120 tablet 5 Sig: TAKE 4 TABLETS ONCE DAILY ON AN EMPTY STOMACH 1 HOUR BEFORE OR 2 HOURS AFTER A MEAL Abigail Ferrer LPN September 20, 2024 1:49 PM [facility]06-16-2025 Miscellaneous Notes* Telephone Encounter - Abigail Ferrer LPN - 09/20/2024 1:09 PM EDT Prescription Refill Information The patient has been identified by name and date of : Yes Caregiver verified no other encounters exist for this prescription request: Yes Caregiver confirmed with patient/requestor that no other refills are due, in the near future, with this provider at this time: Yes The last office visit in the department: 09/08/2024 Does the patient have a future office visit with this provider/department: Yes Requested Prescriptions Pending Prescriptions Disp Refills abiraterone 250 mg tablet [Pharmacy Med Name: ABIRATERONE ACETATE 250 MG TAB] 120 tablet 5 Sig: TAKE 4 TABLETS ONCE DAILY ON AN EMPTY STOMACH 1 HOUR BEFORE OR 2 HOURS AFTER A MEAL Abigail Ferrer LPN September 20, 2024 1:49 PM [facility] Progress note Author Ivan Nugent [facility] Note Date/Time September 20, 2024 8:51 am [facility] Medical Records Department [address] [place] [address] Progress Note - Hospitalist 09/20/24 0845 MR#: [id number] Acct: [id number] Name: LUTHER CASTILLO ALLAN Rep #:[id number] : 1955 69 From: Ivan quinn MD PCP: Dr. López Ocampo MD Status :ADM IN Location: ICU ICU03-1 Subjective Subjective Doing much better today, bilirubin has normalized he denies any abdominal pain though he says he has been having intermittent abdominal pain since his appendicitis in February. Repeat blood cultures are pending Objective Data Objective Data Vital Signs: Vital Signs Temp Pulse Resp BP Pulse Ox O2 Del Method O2 Flow Rate 98.4 F 73 21 H 100/69 98 Room Air 2 09/20/24 06:00 09/20/24 06:00 09/20/24 06:00 09/20/24 06:00 09/20/24 08:10 09/20/24 08:10 09/19/24 07:56 FiO2 2 09/19/24 09:00 Oxygen Flow Rate (L/min) 2 Oxygen Delivery Method Room Air Weight: 162 lb 4.8 oz Body Mass Index (BMI) 26.1 Intake & Output: Intake and Output for Last 24 Hours 09/19/24 09/20/24 09/21/24 03:59 03:59 03:59 Intake Total 5985.19 / 5988.94 3187.97 / 3187.97 1215 / 1215 Output Total 475 / 475 2700 / 2700 475 / 475 Balance 5510.19 / 5513.94 487.97 / 487.97 740 / 740 Lab / Micro Data 09/20/24 04:00 09/20/24 04:00 Labs: Laboratory Results - last 24 hr 09/19/24 04:10: Total Bilirubin 1.56 H, Direct Bilirubin 1.15 H, AST 39 H, ALT 25, Alkaline Phosphatase 169 H, Total Protein 5.2 L, Albumin 2.8 L, Globulin 2.4 09/20/24 04:00: WBC 5.2, RBC 2.81 L, Hgb 6.8 L, Hct 22.6 L, MCV 80.4, MCH 24.2 L, MCHC 30.1 L, RDW Std Deviation 62.5 H, RDW Coeff of Lydia 21.2 H, Plt Count 84 L, MPV 8.9, Immature Gran % (Auto) 0.600, Neut % (Auto) 83.2 H, Lymph % (Auto) 12.6 L, Bullock % (Auto) 3.6, Eos % (Auto) 0.0, Baso % (Auto) 0.0, Absolute Neuts (auto) 4.4, Absolute Lymphs (auto) 0.66 L, Nucleated RBC % 0, Differential Comment SCANNED, Hypochromasia 2+, Anisocytosis 3+, Microcytosis 2+, Ovalocytes 1+, Alexx Cells 1+, Sodium 138, Potassium 3.9, Chloride 112 H, Carbon Dioxide 16.0 L, Anion Gap 10, BUN 33 H, Creatinine 0.96, Estim Creat Clear Calc 63.69, Est GFR (MDRD) Non-Af 85, BUN/Creatinine Ratio 34.9 H, Glucose 175 H, Calcium 7.0 L, Total Bilirubin 0.47, AST 30, ALT 20, Alkaline Phosphatase 135 H, Total Protein 5.2 L, Albumin 2.7 L, Globulin 2.5, Albumin/Globulin Ratio 1.1 09/20/24 07:45: Blood Type B NEGATIVE, Crossmatch See Detail Micro: Microbiology 09/18/24 13:40 Blood Culture (Wb) - Anticubital Left Blood Culture - Preliminary 09/19/24 10:45 Stool Enteric Bacteriology - Final 09/19/24 10:45 Stool Clostridioides difficile (PCR) - Final 09/18/24 13:30 Urine, Clean Catch Urine Culture - Preliminary Culture exhibits no growth. 09/18/24 13:40 Blood Culture (Wb) - Left Forearm Blood Culture - Preliminary 09/18/24 13:45 Mucosa - Nose SARS-CoV-2, Influenza & RSV (PCR) - Final Radiography Diagnostic Testing: Radiology Impression Abdomen/Pelvis CT 09/19/24 07:13 IMPRESSION: No acute abdominopelvic finding. Reading Location: [id number] Rhythm Strip Rhythm Strip: Sinus Rhythm Rate: 90 Ectopy: None Physical Exam Narrative General: Alert, Oriented x3, Cooperative, No apparent distress HEENT: Atraumatic, PERRLA, EOMI, Normocephalic, Mohs surgery on his right scalp dressing intact with fluid collection underneath does not appear infected, no surrounding erythema Oral: Moist Mucosa Neck: Supple, No JVD Lungs: Diminished, Normal air movement, No rhonchi, No wheeze, No rales Cardiovascular: Regular rate, Regular Rhythm, Normal S1, Normal S2, No murmurs Abdomen: Soft, Non Tender, Non-Distended, No Hepato-splenomegaly Extremities: No edema, Capillary Refill Less than 3 Seconds Skin: No rashes, No breakdown Musculoskeletal: No Tenderness to Palpation of Joints or Extremities Neurological: No focal neurological deficits, moves all extremities Psych/Mental Status: Normal Affect, Appropriate Assessment & Plan Assessment/Plan (1) Sepsis: (2) Acute kidney injury: PLAN: Plan 1. Severe sepsis of unclear source/STACI ? She received 3 L of fluid in the ER with a beautiful response to his blood pressure ? Will decrease IV fluids but will continue as he is getting a CT scan of his abdomen and pelvis ? Will administer broad-spectrum antibiotics with Vanco and Zosyn ? Blood cultures with gram-positive cocci in clusters and gram-negative rods, repeat cultures also pending ? Urine culture is no growth ? Will add oral prednisone as he takes 5 mg of prednisone twice daily, as a stress dose ? Will have wound care evaluate his Mohs surgical site while here ?STACI has resolved ? As his mean arterial pressure never dropped below 60 regardless of the fact that he was started on pressors overnight into the I do not believe that this constitutes septic shock 2. Metastatic prostate cancer/anemia of chronic disease ? He has been having headaches and he did tell his oncologist about it who did not feel that it warranted imaging at this time as they felt that it was relatedto his Mohs surgery, however if this continues would recommend MRI ? Will stress dose of steroids with prednisone ? Will hold his cancer medications ? 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 Hyperlipidemia ? Can continue his Lipitor ? Stable 4. BPH with obstruction ? Can plan for voiding trial prior to discharge ? Continue with Flomax DVT: Heparin Charges/Coding Visit Charges Inpatient E&M: 27689 Subs Hosp L2 09/20/24 0851 <Electronically signed by Ivan Nugent MD> Cosigner Signature (if applicable): CC: ~ Signed [facility] Work Phone: [phone] 383-984906-16-2025 Progress note [facility] Medical Records Department [address] [place] [address] Progress Note - Hospitalist 09/20/24 0845 MR#: [id number] Acct: [id number] Name: LUTHER CASTILLO II Rep #:[id number] : 1955 69 From: Ivan quinn MD PCP: Dr. López Ocampo MD Status :ADM IN Location: ICU ICU03-1 Subjective Subjective Doing much better today, bilirubin has normalized he denies any abdominal pain though he says he has been having intermittent abdominal pain since his appendicitis in February. Repeat blood cultures are pending Objective Data Objective Data Vital Signs: Vital Signs Temp Pulse Resp BP Pulse Ox O2 Del Method O2 Flow Rate 98.4 F 73 21 H 100/69 98 Room Air 2 09/20/24 06:00 09/20/24 06:00 09/20/24 06:00 09/20/24 06:00 09/20/24 08:10 09/20/24 08:10 09/19/24 07:56 FiO2 2 09/19/24 09:00 Oxygen Flow Rate (L/min) 2 Oxygen Delivery Method Room Air Weight: 162 lb 4.8 oz Body Mass Index (BMI) 26.1 Intake & Output: Intake and Output for Last 24 Hours 09/19/24 09/20/24 09/21/24 03:59 03:59 03:59 Intake Total 5985.19 / 5988.94 3187.97 / 3187.97 1215 / 1215 Output Total 475 / 475 2700 / 2700 475 / 475 Balance 5510.19 / 5513.94 487.97 / 487.97 740 / 740 Lab / Micro Data 09/20/24 04:00 09/20/24 04:00 Labs: Laboratory Results - last 24 hr 09/19/24 04:10: Total Bilirubin 1.56 H, Direct Bilirubin 1.15 H, AST 39 H, ALT 25, Alkaline Phosphatase 169 H, Total Protein 5.2 L, Albumin 2.8 L, Globulin 2.4 09/20/24 04:00: WBC 5.2, RBC 2.81 L, Hgb 6.8 L, Hct 22.6 L, MCV 80.4, MCH 24.2 L, MCHC 30.1 L, RDW Std Deviation 62.5 H, RDW Coeff of Lydia 21.2 H, Plt Count 84 L, MPV 8.9, Immature Gran % (Auto) 0.600, Neut % (Auto) 83.2 H, Lymph % (Auto) 12.6 L, Bullock % (Auto) 3.6, Eos % (Auto) 0.0, Baso % (Auto) 0.0, Absolute Neuts (auto) 4.4, Absolute Lymphs (auto) 0.66 L, Nucleated RBC % 0, Differential CommentSCANNED, Hypochromasia 2+, Anisocytosis 3+, Microcytosis 2+, Ovalocytes 1+, Filley Cells 1+, Sodium 138, Potassium 3.9, Chloride 112 H, Carbon Dioxide 16.0 L, Anion Gap 10, BUN 33 H, Creatinine 0.96, Estim Creat Clear Calc 63.69, Est GFR (MDRD) Non-Af 85, BUN/Creatinine Ratio 34.9 H, Glucose 175 H, Calcium 7.0 L, Total Bilirubin 0.47, AST 30, ALT 20, Alkaline Phosphatase 135 H, Total Protein 5.2 L,Albumin 2.7 L, Globulin 2.5, Albumin/Globulin Ratio 1.1 09/20/24 07:45: Blood Type B NEGATIVE, Crossmatch See Detail Micro: Microbiology 09/18/24 13:40 Blood Culture (Wb) - Anticubital Left Blood Culture - Preliminary 09/19/24 10:45 Stool Enteric Bacteriology - Final 09/19/24 10:45 Stool Clostridioides difficile (PCR) - Final 09/18/24 13:30 Urine, Clean Catch Urine Culture - Preliminary Culture exhibits no growth. 09/18/24 13:40 Blood Culture (Wb) - Left Forearm Blood Culture - Preliminary 09/18/24 13:45 Mucosa - Nose SARS-CoV-2, Influenza & RSV (PCR) - Final Radiography Diagnostic Testing: Radiology Impression Abdomen/Pelvis CT 09/19/24 07:13 IMPRESSION: No acute abdominopelvic finding. Reading Location: [facility] Rhythm Strip Rhythm Strip: Sinus Rhythm Rate: 90 Ectopy: None Physical Exam Narrative General: Alert, Oriented x3, Cooperative, No apparent distress HEENT: Atraumatic, PERRLA, EOMI, Normocephalic, Mohs surgery on his right scalp dressing intact with fluid collection underneath does not appear infected, no surrounding erythema Oral: Moist Mucosa Neck: Supple, No JVD Lungs: Diminished, Normal air movement, No rhonchi, No wheeze, No rales Cardiovascular: Regular rate, Regular Rhythm, Normal S1, Normal S2, No murmurs Abdomen: Soft, Non Tender, Non-Distended, No Hepato-splenomegaly Extremities: No edema, Capillary Refill Less than 3 Seconds Skin: No rashes, No breakdown Musculoskeletal: No Tenderness to Palpation of Joints or Extremities Neurological: No focal neurological deficits, moves all extremities Psych/Mental Status: Normal Affect, Appropriate Assessment & Plan Assessment/Plan (1) Sepsis: (2) Acute kidney injury: PLAN: Plan 1. Severe sepsis of unclear source/STCAI ? She received 3 L of fluid in the ER with a beautiful response to his blood pressure ? Will decrease IV fluids but will continue as he is getting a CT scan of his abdomen and pelvis ? Will administer broad-spectrum antibiotics with Vanco and Zosyn ? Blood cultures with gram-positive cocci in clusters and gram-negative rods, repeat cultures also pending ? Urine culture is no growth ? Will add oral prednisone as he takes 5 mg of prednisone twice daily, as a stress dose ? Will have wound care evaluate his Mohs surgical site while here ?STACI has resolved ? As his mean arterial pressure never dropped below 60 regardless of the fact that he was started on pressors overnight into the I do not believe that this constitutes septic shock 2. Metastatic prostate cancer/anemia of chronic disease ? He has been having headaches and he did tell his oncologist about it who did not feel that it warranted imaging at this time as they felt that it was relatedto his Mohs surgery, however if this continues would recommend MRI ? Will stress dose of steroids with prednisone ? Will hold his cancer medications ? 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 Hyperlipidemia ? Can continue his Lipitor ? Stable 4. BPH with obstruction ? Can plan for voiding trial prior to discharge ? Continue with Flomax DVT: Heparin Charges/Coding Visit Charges Inpatient E&M: 17878 Subs Hosp L2 09/20/24 0851 Cosigner Signature (if applicable): CC: ~ Signed [facility]06-15-2025 Consult note Author Ivan Edwards [facility] Note Date/Time September 19, 2024 6:00 pm [facility] Medical Records Department [address] [place] [address] Pharmacokinetic/Renal -Consult 09/19/24 1800 MR#: [id number] Acct: [id number] Name: LUTHER CASTILLO II Rep #:[id number] : 1955 69 From: Ivan Winchester [facility] PCP: Dr. López Ocampo MD Status :ADM IN Y Location: ICU ICU03-1 Consult Antibiotic Management Pharmacy has been consulted to manage selected antibiotic: Vancomycin Type of Intervention Type of Consult: Follow-up Suspected Infection Suspected Infection: Sepsis Labs Labs: Sodium 139 mmol/L (133-145) 09/19/24 04:10 Potassium 4.1 mmol/L (3.3-5.1) 09/19/24 04:10 Chloride 111 mmol/L (98-108) H 09/19/24 04:10 Carbon Dioxide 15.1 mmol/L (21.0-32.0) L 09/19/24 04:10 Anion Gap 13 (5-15) 09/19/24 04:10 BUN 32 mg/dL (4-19) H 09/19/24 04:10 Creatinine 1.32 mg/dL (0.70-1.20) H 09/19/24 04:10 Est GFR (MDRD) Non-Af 58 (>60) L 09/19/24 04:10 BUN/Creatinine Ratio 23.9 RATIO (10-20) H 09/19/24 04:10 Glucose 112 mg/dL (70-99) H 09/19/24 04:10 Microbiology Microbiology: Microbiology 09/19/24 10:45 Stool Enteric Bacteriology - Final 09/19/24 10:45 Stool Clostridioides difficile (PCR) - Final 09/18/24 13:30 Urine, Clean Catch Urine Culture - Preliminary Culture exhibits no growth. 09/18/24 13:40 Blood Culture (Wb) - Left Forearm Blood Culture - Preliminary 09/18/24 13:40 Blood Culture (Wb) - Anticubital Left Blood Culture - Preliminary 09/18/24 13:45 Mucosa - Nose SARS-CoV-2, Influenza & RSV (PCR) - Final Goal Trough Goal Trough: 15-20 mcg/mL Pharmacy Plan for Drug Dosing Pharmacy Plan for Drug Dosing: DAILY ASSESSMENT Current Vancomycin Dose: 750mg q24h (1600) Number of Doses Received: x1 1750mg loading dose, x1 750mg dose Current Renal Function: SrCr 1.32 Renal Function Trend: SrCr decreasing (SrCr was 2.13 upon admission on 09/18/24) Lab/Micro: Any Change in Vanc Plan: due to improving renal function, recommend changing dose from 750mg q24h to 500mg q12h. will change trough as well Pending Level: 09/21/24 at 0430 Pharmacy Service will continue to monitor and adjust dosing as required. Follow-Up Labs Follow-Up Labs: Trough: Vancomycin (09/21/24 at 0430) 09/19/24 1800 <Electronically signed by Ivan Odonnell [facility]> Date _ Ivan Edwards [facility] Cosigner Signature (if applicable): Date CC: ~ Signed [facility] Work Phone: [phone]) [phone] Consult note [facility] Medical Records Department [address] [place] [address] Pharmacokinetic/Renal -Consult 09/19/24 1800 MR#: [id number] Acct: [id number] Name: LUTHER CASTILLO II Rep #:[id number] : 1955 69 From: Ivan Winchester [facility] PCP: Dr. López Ocampo MD Status :ADM IN Y Location: ICU ICU03-1 Consult Antibiotic Management Pharmacy has been consulted to manage selected antibiotic: Vancomycin Type of Intervention Type of Consult: Follow-up Suspected Infection Suspected Infection: Sepsis Labs Labs: Sodium 139 mmol/L (133-145) 09/19/24 04:10 Potassium 4.1 mmol/L (3.3-5.1) 09/19/24 04:10 Chloride 111 mmol/L (98-108) H 09/19/24 04:10 Carbon Dioxide 15.1 mmol/L (21.0-32.0) L 09/19/24 04:10 Anion Gap 13 (5-15) 09/19/24 04:10 BUN 32 mg/dL (4-19) H 09/19/24 04:10 Creatinine 1.32 mg/dL (0.70-1.20) H 09/19/24 04:10 Est GFR (MDRD) Non-Af 58 (>60) L 09/19/24 04:10 BUN/Creatinine Ratio 23.9 RATIO (10-20) H 09/19/24 04:10 Glucose 112 mg/dL (70-99) H 09/19/24 04:10 Microbiology Microbiology: Microbiology 09/19/24 10:45 Stool Enteric Bacteriology - Final 09/19/24 10:45 Stool Clostridioides difficile (PCR) - Final 09/18/24 13:30 Urine, Clean Catch Urine Culture - Preliminary Culture exhibits no growth. 09/18/24 13:40 Blood Culture (Wb) - Left Forearm Blood Culture - Preliminary 09/18/24 13:40 Blood Culture (Wb) - Anticubital Left Blood Culture - Preliminary 09/18/24 13:45 Mucosa - Nose SARS-CoV-2, Influenza & RSV (PCR) - Final Goal Trough Goal Trough: 15-20 mcg/mL Pharmacy Plan for Drug Dosing Pharmacy Plan for Drug Dosing: DAILY ASSESSMENT Current Vancomycin Dose: 750mg q24h (1600) Number of Doses Received: x1 1750mg loading dose, x1 750mg dose Current Renal Function: SrCr 1.32 Renal Function Trend: SrCr decreasing (SrCr was 2.13 upon admission on 09/18/24) Lab/Micro: Any Change in Vanc Plan: due to improving renal function, recommend changing dose from 750mg q24h to 500mg q12h. will change trough as well Pending Level: 09/21/24 at 0430 Pharmacy Service will continue to monitor and adjust dosing as required. Follow-Up Labs Follow-Up Labs: Trough: Vancomycin (09/21/24 at 0430) 09/19/24 1800 ering [facility]> Date _ Ivan Edwards [facility] Cosigner Signature (if applicable): Date CC: ~ Signed [facility]06-15-2025 Progress note Author Ivan Nugent [facility] Note Date/Time September 19, 2024 10:3 2am [facility] Medical Records Department [address] [place] [address] Progress Note - Hospitalist 09/19/24 1030 MR#: [id number] Acct: [id number] Name: LUTHER CASTILLO II Rep #:[id number] : 1955 69 From: Ivan quinn MD PCP: Dr. López Ocampo MD Status :ADM IN Location: ICU ICU03-1 Subjective Subjective Feels better today, had to be placed on little bit of oxygen overnight because of his resuscitation fluids Objective Data Objective Data Vital Signs: Vital Signs Temp Pulse Resp BP Pulse Ox O2 Del Method O2 Flow Rate 97.3 F L 78 13 99/66 96 Nasal Cannula 2 09/19/24 06:00 09/19/24 07:00 09/19/24 07:00 09/19/24 07:00 09/19/24 07:10 09/19/24 07:56 09/19/24 07:56 FiO2 4 09/18/24 22:00 Oxygen Flow Rate (L/min) 2 Oxygen Delivery Method Nasal Cannula Weight: 156 lb 1.6 oz Body Mass Index (BMI) 25.0 Intake & Output: Intake and Output for Last 24 Hours 09/18/24 09/19/24 09/20/24 03:59 03:59 03:59 Intake Total 5985.19 / 5988.94 60.80 / 60.80 Output Total 475 / 475 800 / 800 Balance 5510.19 / 5513.94 -739.20 / -739.20 Lab / Micro Data 09/19/24 04:10 09/19/24 04:10 Labs: Laboratory Results - last 24 hr 09/18/24 12:40: WBC 4.4, RBC 3.63 L, Hgb 8.6 L, Hct 29.3 L, MCV 80.7, MCH 23.7 L, MCHC 29.4 L, RDW Std Deviation 62.0 H, RDW Coeff of Lydia 21.4 H, Plt Count 119 L, MPV 8.8, Immature Gran % (Auto) 0.200, Neut % (Auto) 87.5 H, Lymph % (Auto) 10.7 L, Bullock % (Auto) 0.9, Eos % (Auto) 0.5, Baso % (Auto) 0.2, Absolute Neuts (auto) 3.8, Absolute Lymphs (auto) 0.47 L, Nucleated RBC % 0, Hypochromasia 1+, Anisocytosis 1+, PT 17.7 H, INR 1.4, APTT 36.6 H, Sodium 137, Potassium 4.1, Chloride 102, Carbon Dioxide 20.3 L, Anion Gap 14, BUN 43 H, Creatinine 2.13 H, Estim Creat Clear Calc 30.37 L, Est GFR (MDRD) Non-Af 32 L, BUN/Creatinine Ratio20.1 H, Glucose 75, Calcium 8.6, Total Bilirubin 1.76 H, AST 28, ALT 20, Alkaline Phosphatase 152 H, Troponin T High Sens 47 H, Total Protein 6.1, Albumin3.3 L, Globulin 2.8, Albumin/Globulin Ratio 1.2 09/18/24 13:30: Urine Color Yellow, Urine Clarity Clear, Urine pH 6.0, Ur Specific [place] 1.015, Urine Protein 30 H, Urine Glucose (UA) Normal, Urine Ketones 5 H, Urine Occult Blood 10 H, Urine Nitrite Negative, Urine Bilirubin 1 H, Urine Urobilinogen 1 H, Ur Leukocyte Esterase 25 H, Urine RBC 0 SEEN, Urine WBC 5-10 SEEN, Ur Squamous Epith Cells 0 SEEN, Urine Bacteria 0 SEEN, Hyaline Casts 0-5 SEEN, Urine Mucus 0 SEEN 09/18/24 13:45: Lactic Acid 2.3 H* 09/18/24 15:20: Troponin T Hi Sens 2 Hr 44 H 09/18/24 17:00: Lactic Acid 1.2, Troponin T Hi Sens 4Hr 41 H 09/19/24 04:10: WBC 8.0, RBC 3.27 L, Hgb 7.9 L, Hct 26.7 L, MCV 81.7, MCH 24.2 L, MCHC 29.6 L, RDW Std Deviation 63.8 H, RDW Coeff of Lydia 21.5 H, Plt Count 99 L, MPV 9.2, Immature Gran % (Auto) 1.000 H, Neut % (Auto) 91.5 H, Lymph % (Auto) 5.0 L, Bullock % (Auto) 2.4, Eos % (Auto) 0.0, Baso % (Auto) 0.1, Absolute Neuts (auto) 7.3, Absolute Lymphs (auto) 0.40 L, Nucleated RBC % 0, Differential Comment SCANNED, Platelet Estimate SLT DEC, Hypochromasia 2+, Anisocytosis 3+, Microcytosis 2+, Tear Drop Cells RARE, Ovalocytes 1+, Filley Cells 1+, Sodium 139,Potassium 4.1, Chloride 111 H, Carbon Dioxide 15.1 L, Anion Gap 13, BUN 32 H, Creatinine 1.32 H, Estim Creat Clear Calc 46.32 L, Est GFR (MDRD) Non-Af 58 L, BUN/Creatinine Ratio 23.9 H, Glucose 112 H, Calcium 7.3 L, Total Bilirubin 1.56 H, Direct Bilirubin 1.15 H, AST 39 H, ALT 25, Alkaline Phosphatase 169 H, Total Protein 5.2 L, Albumin 2.8 L, Globulin 2.4 Micro: Microbiology 09/18/24 13:30 Urine, Clean Catch Urine Culture - Preliminary Culture exhibits no growth. 09/18/24 13:40 Blood Culture (Wb) - Left Forearm Blood Culture - Preliminary 09/18/24 13:40 Blood Culture (Wb) - Anticubital Left Blood Culture - Preliminary 09/18/24 13:45 Mucosa - Nose SARS-CoV-2, Influenza & RSV (PCR) - Final Radiography Diagnostic Testing: Radiology Impression Chest X-Ray 09/18/24 13:20 IMPRESSION: No acute process detected. Reading [facility] Abdomen/Pelvis CT 09/19/24 07:13 IMPRESSION: No acute abdominopelvic finding. Reading Location: [id number] Rhythm Strip Rhythm Strip: Sinus Rhythm Rate: 90 Ectopy: None Physical Exam Narrative General: Alert, Oriented x3, Cooperative, No apparent distress HEENT: Atraumatic, PERRLA, EOMI, Normocephalic, Mohs surgery on his right scalp dressing intact with fluid collection underneath does not appear infected, no surrounding erythema Oral: Moist Mucosa Neck: Supple, No JVD Lungs: Diminished, Normal air movement, No rhonchi, No wheeze, No rales, mild crackles at the bases Cardiovascular: Regular rate, Regular Rhythm, Normal S1, Normal S2, No murmurs Abdomen: Soft, Non Tender, Non-Distended, No Hepato-splenomegaly Extremities: No edema, Capillary Refill Less than 3 Seconds Skin: No rashes, No breakdown Musculoskeletal: No Tenderness to Palpation of Joints or Extremities Neurological: No focal neurological deficits, moves all extremities Psych/Mental Status: Normal Affect, Appropriate Assessment & Plan Assessment/Plan (1) Sepsis: (2) Acute kidney injury: PLAN: Plan 1. Severe sepsis of unclear source/STACI ? She received 3 L of fluid in the ER with a beautiful response to his blood pressure ? Will decrease IV fluids but will continue as he is getting a CT scan of his abdomen and pelvis ? Will administer broad-spectrum antibiotics with Vanco and Zosyn ? Blood cultures with gram-positive cocci in clusters and gram-negative rods ? Urine culture is no growth ? Will add oral prednisone as he takes 5 mg of prednisone twice daily, as a stress dose ? Will have wound care evaluate his Mohs surgical site while here ?STACI has resolved 2. Metastatic prostate cancer ? He has been having headaches and he did tell his oncologist about it who did not feel that it warranted imaging at this time as they felt that it was relatedto his Mohs surgery, however if this continues would recommend MRI ? Will stress dose of steroids with prednisone ? Will hold his cancer medications 3. Hyperlipidemia ? Can continue his Lipitor ? 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 Continue with Flomax DVT: Heparin Charges/Coding Visit Charges Inpatient E&M: 86748 Subs Hosp L2 09/19/24 1032 <Electronically signed by Ivan Nugent MD> Cosigner Signature (if applicable): CC: ~ Signed [facility] Work Phone: [phone]) [phone] Progress note [facility] Medical Records Department [address] [place] [address] Progress Note - Hospitalist 09/19/24 1030 MR#: [id number] Acct: [id number] Name: LUTHER CASTILLO II Rep #:[id number] : 1955 69 From: Ivan quinn MD PCP: Dr. López Ocampo MD Status :ADM IN Location: ICU ICU03-1 Subjective Subjective Feels better today, had to be placed on little bit of oxygen overnight because of his resuscitationfluids Objective Data Objective Data Vital Signs: Vital Signs Temp Pulse Resp BP Pulse Ox O2 Del Method O2 Flow Rate 97.3 F L 78 13 99/66 96 Nasal Cannula 2 09/19/24 06:00 09/19/24 07:00 09/19/24 07:00 09/19/24 07:00 09/19/24 07:10 09/19/24 07:56 09/19/24 07:56 FiO2 4 09/18/24 22:00 Oxygen Flow Rate (L/min) 2 Oxygen Delivery Method Nasal Cannula Weight: 156 lb 1.6 oz Body Mass Index (BMI) 25.0 Intake & Output: Intake and Output for Last 24 Hours 09/18/24 09/19/24 09/20/24 03:59 03:59 03:59 Intake Total 5985.19 / 5988.94 60.80 / 60.80 Output Total 475 / 475 800 / 800 Balance 5510.19 / 5513.94 -739.20 / -739.20 Lab / Micro Data 09/19/24 04:10 09/19/24 04:10 Labs: Laboratory Results - last 24 hr 09/18/24 12:40: WBC 4.4, RBC 3.63 L, Hgb 8.6 L, Hct 29.3 L, MCV 80.7, MCH 23.7 L, MCHC 29.4 L, RDW Std Deviation 62.0 H, RDW Coeff of Lydia 21.4 H, Plt Count 119 L, MPV 8.8, Immature Gran % (Auto) 0.200, Neut % (Auto) 87.5 H, Lymph % (Auto) 10.7 L, Bullock % (Auto) 0.9, Eos % (Auto) 0.5, Baso % (Auto) 0.2, Absolute Neuts (auto) 3.8, Absolute Lymphs (auto) 0.47 L, Nucleated RBC % 0, Hypochromasia 1+, Anisocytosis 1+, PT 17.7 H, INR 1.4, APTT 36.6 H, Sodium 137, Potassium 4.1, Chloride 102, Carbon Dioxide 20.3 L, Anion Gap 14, BUN 43 H, Creatinine 2.13 H, Estim Creat Clear Calc 30.37 L, Est GFR (MDRD) Non-Af 32 L, BUN/Creatinine Ratio20.1 H, Glucose 75, Calcium 8.6, Total Bilirubin 1.76 H, AST 28,ALT 20, Alkaline Phosphatase 152 H, Troponin T High Sens 47 H, Total Protein 6.1, Albumin3.3 L, Globulin 2.8, Albumin/Globulin Ratio 1.2 09/18/24 13:30: Urine Color Yellow, Urine Clarity Clear, Urine pH 6.0, Ur Specific [place] 1.015, Urine Protein 30 H, Urine Glucose (UA) Normal, Urine Ketones 5 H, Urine Occult Blood 10 H, Urine Nitrite Negative, Urine Bilirubin 1 H, Urine Urobilinogen 1 H, Ur Leukocyte Esterase 25 H, Urine RBC 0 SEEN, Urine WBC 5-10 SEEN, Ur Squamous Epith Cells 0 SEEN, Urine Bacteria 0 SEEN, Hyaline Casts 0-5 SEEN, Urine Mucus 0 SEEN 09/18/24 13:45: Lactic Acid 2.3 H* 09/18/24 15:20: Troponin T Hi Sens 2 Hr 44 H 09/18/24 17:00: Lactic Acid 1.2, Troponin T Hi Sens 4Hr 41 H 09/19/24 04:10: WBC 8.0, RBC 3.27 L, Hgb 7.9 L, Hct 26.7 L, MCV 81.7, MCH 24.2 L, MCHC 29.6 L, RDW Std Deviation 63.8 H, RDW Coeff of Lydia 21.5 H, Plt Count 99 L, MPV 9.2, Immature Gran % (Auto) 1.000H, Neut % (Auto) 91.5 H, Lymph % (Auto) 5.0 L, Bullock % (Auto) 2.4, Eos % (Auto) 0.0, Baso % (Auto) 0.1, Absolute Neuts (auto) 7.3, Absolute Lymphs (auto) 0.40 L, Nucleated RBC % 0, Differential Comment SCANNED, Platelet Estimate SLT DEC, Hypochromasia 2+, Anisocytosis 3+, Microcytosis 2+, Tear Drop Cells RARE, Ovalocytes 1+, Alexx Cells 1+, Sodium 139,Potassium 4.1, Chloride 111 H, Carbon Dioxide 15.1 L, Anion Gap 13, BUN 32 H, Creatinine 1.32 H, Estim Creat Clear Calc 46.32 L, Est GFR (MDRD) Non-Af 58 L, BUN/Creatinine Ratio 23.9 H, Glucose 112 H, Calcium 7.3 L, Total Bilirubin 1.56 H, Direct Bilirubin 1.15 H, AST 39 H, ALT 25, Alkaline Phosphatase 169 H, Total Protein 5.2 L, Albumin 2.8 L, Globulin 2.4 Micro: Microbiology 09/18/24 13:30 Urine, Clean Catch Urine Culture - Preliminary Culture exhibits no growth. 09/18/24 13:40 Blood Culture (Wb) - Left Forearm Blood Culture - Preliminary 09/18/24 13:40 Blood Culture (Wb) - Anticubital Left Blood Culture - Preliminary 09/18/24 13:45 Mucosa - Nose SARS-CoV-2, Influenza & RSV (PCR) - Final Radiography Diagnostic Testing: Radiology Impression Chest X-Ray 09/18/24 13:20 IMPRESSION: No acute process detected. Reading Location[facility] Abdomen/Pelvis CT 09/19/24 07:13 IMPRESSION: No acute abdominopelvic finding. Reading Location: [id number] Rhythm Strip Rhythm Strip: Sinus Rhythm Rate: 90 Ectopy: None Physical Exam Narrative General: Alert, Oriented x3, Cooperative, No apparent distress HEENT: Atraumatic, PERRLA, EOMI, Normocephalic, Mohs surgery on his right scalp dressing intact with fluid collection underneath does not appear infected, no surrounding erythema Oral: Moist Mucosa Neck: Supple, No JVD Lungs: Diminished, Normal air movement, No rhonchi, No wheeze, No rales, mild crackles at the bases Cardiovascular: Regular rate, Regular Rhythm, Normal S1, Normal S2, No murmurs Abdomen: Soft, Non Tender, Non-Distended, No Hepato-splenomegaly Extremities: No edema, Capillary Refill Less than 3 Seconds Skin: No rashes, No breakdown Musculoskeletal: No Tenderness to Palpation of Joints or Extremities Neurological: No focal neurological deficits, moves all extremities Psych/Mental Status: Normal Affect, Appropriate Assessment & Plan Assessment/Plan (1) Sepsis: (2) Acute kidney injury: PLAN: Plan 1. Severe sepsis of unclear source/STACI ? She received 3 L of fluid in the ER with a beautiful response to his blood pressure ? Will decrease IV fluids but will continue as he is getting a CT scan of his abdomen and pelvis ? Will administer broad-spectrum antibiotics with Vanco and Zosyn ? Blood cultures with gram-positive cocci in clusters and gram-negative rods ? Urine culture is no growth ? Will add oral prednisone as he takes 5 mg of prednisone twice daily, as a stress dose ? Will have wound care evaluate his Mohs surgical site while here ?STACI has resolved 2. Metastatic prostate cancer ? He has been having headaches and he did tell his oncologist about it who did not feel that it warranted imaging at this time as they felt that it was relatedto his Mohs surgery, however if this continues would recommend MRI ? Will stress dose of steroids with prednisone ? Will hold his cancer medications 3. Hyperlipidemia ? Can continue his Lipitor ? 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 Continue with Flomax DVT: Heparin Charges/Coding Visit Charges Inpatient E&M: 44147 Subs Hosp L2 09/19/24 1032 Cosigner Signature (if applicable): CC: ~ Signed [facility]06-15-2025 Radiology Diagnostic study note [facility] Imaging Services [address] [place], [place] [id number] Abdomen/Pelvis WITH Contrast MR#: [id number] Acct: [id number] Name: LUTHER CASTILLO II Rep #: [id number] : 1955 M 69 From: Mei Wahl MD PCP: Dr. López Ocampo MD Status: ADM IN Study:Abdomen/Pelvis WITH Contrast Date of Ex am: 09/19/24 Exam# [id number] Ordering Dr: Ivan Nugent MD PROCEDURE: ABDOMEN/PELVIS WITH CONTRAST 09/19/2024 REASON FOR EXAM: SEPSIS WITH UNKNOWN SOURCE. Vomiting, history of prostate cancer. TECHNIQUE: ABDOMEN/PELVIS WITH CONTRAST. Coronal and Sagittal reconstruction series were provided. ORAL CONTRAST TYPE: Gastrografin CONTRAST: Isovue 370 VOLUME: 100 mL One or more dose reduction techniques were used (e.g., Automated exposure control, adjustment of the mA and/or kV according to patient size, use of iterative reconstruction technique. RADIATION DOSE SUMMARY: CTDlvol: 30 mGy DLP: 900 mGycm COMPARISON: CT abdomen pelvis 02/05/2024. FINDINGS: Lung bases: Small bilateral pleural effusions with adjacent atelectasis. The heart is normal in size with coronary artery and aortic valvular calcifications. Liver: Normal in size without suspicious hepatic mass. The major portal veins are patent. No biliary ductal dilation. Gallbladder: Calcified stone within the gallbladder. No gallbladder wall thickening or pericholecystic fluid. Spleen: Normal in size. Pancreas: Mildly atrophic. Adrenals: No adrenal mass. Kidneys: No hydronephrosis or nephrolithiasis. Bladder: Decompressed by indwelling Loza catheter. Reproductive Organs: The prostate is atrophic or surgically absent. Bowel: Oral contrast material opacifies the distal small bowel and large bowel loops. The bowel loops are nondilated. Trace ascites within the lower pelvis (series 2, image 80), slightly improved since prior examination. Nopneumoperitoneum. Prior appendectomy. Lymph nodes: No suspicious lymphadenopathy. Vasculature: Severe mixed plaque of the aortoiliac vessels. Bones: Thoracolumbar spondylosis with unchanged leftward curvature of the lower lumbar spine. 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 CT/Abdomen/Pelvis WITH Contrast IMPRESSION: No acute abdominopelvic finding. Reading Location: [facility] CC: Dr. López Ocampo MD; Dr. Ivan Nugent MD ~ Tool And Die Supervisor: Signed [facility]06-15-2025 Progress note Author Mariangel Hodges [facility] Note Date/Time September 18, 2024 11:3 2pm [facility] Medical Records Department [address] [place] [address] Progress Note - Hospitalist 09/18/242331 MR#: [id number] Acct: [id number] Name: LUTHER CASTILLO II Rep #:[id number] : 1955 69 From: Mariangel Hodges DO PCP: Dr. López Ocampo MD Status :ADM IN Location: ICU ICU03-1 Hospitalist Note Patient persistently hypotensive despite 5 L of IV fluids. Will start mg 3 times daily and Levophed. Maps have been consistently in the 60-62 range currently. Wean Levophed as able 09/18/242331 <Electronically signed by Mariangel Hodges DO> Cosigner Signature (if applicable): CC: ~ Signed [facility] Work Phone: 1(965) 967-769106-14-2025 Progress note [facility] Medical Records Department [address] [facility] [place] [address] Progress Note - Hospitalist 09/18/24 233 MR#: [id number] Acct: [id number] Name: LUTHER CASTILLO II Rep #:[id number] : 1955 69 From: Mariangel Hodges DO PCP: Dr. López Ocampo MD Status :ADM IN Location: ICU ICU03-1 Hospitalist Note Patient persistently hypotensive despite 5 L of IV fluids. Will start [id number] mg 3 times daily and Levophed. Maps have been consistently in the 60-62 range currently. Wean Levophed as able 09/18/242331 Cosigner Signature (if applicable): CC: ~ Signed [facility]06-14-2025 Consult note Author Ivan Edwards [facility] Note Date/Time September 18, 2024 5:20 pm [facility] Medical Records Department [address] [place] [address] Pharmacokinetic/Renal -Consult 09/18/24 171 MR#: [id number] Acct: [id number] Name: LUTHER CASTILLO II Rep #:[id number] : 1955 69 From: Ivan Winchester [facility] PCP: Dr. López Ocampo MD Status :ADM IN Y Location: ICU ICU03-1 Consult Antibiotic Management Pharmacy has been consulted to manage selected antibiotic: Vancomycin Type of Intervention Type of Consult: New start Suspected Infection Suspected Infection: Sepsis Labs Labs: Sodium 137 mmol/L (133-145) 09/18/24 12:40 Potassium 4.1 mmol/L (3.3-5.1) 09/18/24 12:40 Chloride 102 mmol/L (98-108) 09/18/24 12:40 Carbon Dioxide 20.3 mmol/L (21.0-32.0) L 09/18/24 12:40 Anion Gap 14 (5-15) 09/18/24 12:40 BUN 43 mg/dL (4-19) H 09/18/24 12:40 Creatinine 2.13 mg/dL (0.70-1.20) H 09/18/24 12:40 Est GFR (MDRD) Non-Af 32 (>60) L 09/18/24 12:40 BUN/Creatinine Ratio 20.1 RATIO (10-20) H 09/18/24 12:40 Glucose 75 mg/dL (70-99) 09/18/24 12:40 Microbiology Microbiology: Microbiology 09/18/24 13:45 Mucosa - Nose SARS-CoV-2, Influenza & RSV (PCR) - Final Dosing Weight Weight used for dosin kg Estimated Creatinine Clearance Estimated Creatinine Clearance: 30ml/min Goal Trough Goal Trough: 15-20 mcg/mL Pharmacy Plan for Drug Dosing Pharmacy Plan for Drug Dosing: NEW START IV VANCOMYCIN Consulting Physician: Dr. Nugent Indication: Sepsis Goal Trough: 15-20 SrCr: 2.13 CrCl: 30.4 ml/min Comments: pt received a 1750mg loading dose in the ER on 09/18/24 at 1636 Vancomycin Dose: based on patients weight and renal function recommend an initial dose of 750mg q24h starting 09/19 at 1600. trough prior to the 3rd dose Pending Level: 09/20/24 at 1530 Pharmacy Service will continue to monitor and adjust dosing as required. Follow-Up Labs Follow-Up Labs: Trough: Vancomycin (09/20/24 at 1530) 09/18/24 1720 <Electronically signed by Ivan Odonnell [facility]> Date _ Ivan Edwards [facility] Cosigner Signature (if applicable): Date CC: ~ Signed [facility] Work Phone: [phone]) 543-568406-14-2025 History and physical note Author Ivan Nugent [facility] Note Date/Time September 18, 2024 4:20 pm [facility] Medical Records Department [address] [address] H&P Exam - Hospitalist 09/18/24 1601 MR#: [id number] Acct: [id number] Name: LUTHER CASTILLO II Rep #:[id number] : 1955 69 From: Ivan quinn MD PCP: Dr. López Ocampo MD Status :ADM IN Location: ICU ICU03-1 HPI - General General Date of Admission: 09/18/24 HPI Narrative LUTHER CASTILLO, is a 69 M who presents to the hospital with dizziness and hypotension. He has a history of stage IV prostate cancer with mets to the bonethat he is currently on immunotherapy and hormonal therapy for. Both time he found that it was already metastatic so he has not undergone a prostatectomy. He has been having headaches for the last 3 weeks but they think that is due to his recent Mohs surgery that has not healed on his scalp. That area does not appear infected. He does not have a leukocytosis and he presented with an STACI to 2.13. He is also had a lactic acidosis of 2.3 and was given several fluid boluses in the emergency room. No obvious signs of infection at the moment, UA is unremarkable as is chest x-ray. He does have an elevated alk phos which is likely due to his bone mets but does also have an elevated total bilirubin at 1.7 sick and he does have some scleral icterus. Initially when he presented to the hospital his systolic blood pressures were in the 50s with a MAP of 41, currently on my evaluation his MAP is 67 with a systolic blood pressure of 102. He started feeling unwell yesterday though given the severity of his vital signson arrival he has likely been sick for several days that was just asymptomatic secondary to his immunocompromise state. He is chronically on steroids and is unable to compensate. [facility] Medical History (Updated 09/18/24 @ 15:[address] Augustin Carney MD) Dizziness Home Medications ?Medication ?Instructions ?Recorded ?Last Taken ?Type abiraterone 250 mg tablet 1,000 mg PO DAILY prostate c ancer 12/11/23 09/17/24 History atorvastatin 20 mg tablet 20 mg PO QHS cholesterol 08/2809/17/24 History prednisone 5 mg tablet 5 mg PO BID prostate 4 09/17/24 History tamsulosin 0.4 mg capsule 0.4 mg PO DAILY prostate 08/2809/17/24 History cimetidine 200 mg tablet (Tagamet 200 mg PO BID 09/17/24 History HB) leuprolide acetate (6 month) 45 mg 45 mg subcut .COMPL EX 02/05/24 09/15/24 History (6 month) subcutaneous syringe (Eligard) darbepoetin dagmar in polysorbat See Rx Instructions IV .COMPLEX 09/18/24 Unknown History Allergy/AdvReac Type Severity Reaction Status Date / Time No Known Allergies Allergy Verified 09/18/24 12:29 Family History (Updated 09/18/24 @ 16:[address] Ivan Nugent MD) Other Cancer Surgical History (Updated 09/18/24 @ 16:[address] Ivan Nugent MD) Status post Mohs surgery Social History Smoking Status: Never smoker ROS Constitutional Constitutional: Reports fatigue and weakness; Denies chills, fever(s) or malaise Eyes Eyes: Denies blurry vision ENT HEENT: Denies headache(s) or nasal discharge Cardiovascular Cardiovascular: Denies chest pain, dyspnea on exertion or syncope Respiratory/Chest Respiratory/Chest: Denies cough, shortness of breath at rest or shortness of breath with exertion Gastrointestinal Gastrointestinal: Reports nausea; Denies constipation, diarrhea or vomiting Genitourinary Genitourinary: Denies dysuria Neurologic Neurologic: Reports headache(s); Denies focal weakness, numbness or tremor(s) Psychiatric Psychiatric: Denies anxiety or depression Vital Signs Vital Signs Vital Signs: 09/18/24 12:24 09/18/24 12:26 09/18/24 12:42 Temperature 97.8 F Temperature Source Oral Pulse Rate 93 88 Respiratory Rate 18 18 Blood Pressure 56/34 L 56/34 L 80/72 L Blood Pressure Mean 41 41 74 Pulse Ox 97 95 Oxygen Delivery Method Room Air Room Air 09/18/24 13:18 09/18/24 13:51 09/18/24 14:30 Temperature 98.4 F Temperature Source Oral Pulse Rate 87 85 Respiratory Rate 19 H 20 H Blood Pressure 70/51 L 85/53 L Blood Pressure Mean 57 63 Pulse Ox 93 93 Oxygen Delivery Method Room Air Room Air Weight Weight: 148 lb 12.992 oz Body Mass Index (BMI) 22.6 Physical Exam Narrative General: Alert little drowsy, Oriented x3, Cooperative, No apparent distress HEENT: Atraumatic, PERRLA, EOMI, Normocephalic, Mohs surgery on his right scalp dressing intact with fluid collection underneath does not appear infected, no surrounding erythema Oral: Moist Mucosa Neck: Supple, No JVD Lungs: Diminished, Normal air movement, No rhonchi, No wheeze, No rales Cardiovascular: Regular rate, Regular Rhythm, Normal S1, Normal S2, No murmurs Abdomen: Soft, Non Tender, Non-Distended, No Hepato-splenomegaly Extremities: No edema, Capillary Refill Less than 3 Seconds Skin: No rashes, No breakdown Musculoskeletal: No Tenderness to Palpation of Joints or Extremities Neurological: No focal neurological deficits, moves all extremities Psych/Mental Status: Normal Affect, Appropriate Results Lab / Micro Data 09/18/24 12:40 09/18/24 12:40 Labs: Laboratory Results - last 24 hr 09/18/24 12:40: WBC 4.4, RBC 3.63 L, Hgb 8.6 L, Hct 29.3 L, MCV 80.7, MCH 23.7 L, MCHC 29.4 L, RDW Std Deviation 62.0 H, RDW Coeff of Lydia 21.4 H, Plt Count 119 L, MPV 8.8, Immature Gran % (Auto) 0.200, Neut % (Auto) 87.5 H, Lymph % (Auto) 10.7 L, Bullock % (Auto) 0.9, Eos % (Auto) 0.5, Baso % (Auto) 0.2, Absolute Neuts (auto) 3.8, Absolute Lymphs (auto) 0.47 L, Nucleated RBC % 0, Hypochromasia 1+, Anisocytosis 1+, PT 17.7 H, INR 1.4, APTT 36.6 H, Sodium 137, Potassium 4.1, Chloride 102, Carbon Dioxide 20.3 L, Anion Gap 14, BUN 43 H, Creatinine 2.13 H, Estim Creat Clear Calc 30.37 L, Est GFR (MDRD) Non-Af 32 L, BUN/Creatinine Ratio20.1 H, Glucose 75, Calcium 8.6, Total Bilirubin 1.76 H, AST 28, ALT 20, Alkaline Phosphatase 152 H, Troponin T High Sens 47 H, Total Protein 6.1, Albumin3.3 L, Globulin 2.8, Albumin/Globulin Ratio 1.2 09/18/24 13:30: Urine Color Yellow, Urine Clarity Clear, Urine pH 6.0, Ur Specific [place] 1.015, Urine Protein 30 H, Urine Glucose (UA) Normal, Urine Ketones 5 H, Urine Occult Blood 10 H, Urine Nitrite Negative, Urine Bilirubin 1 H, Urine Urobilinogen 1 H, Ur Leukocyte Esterase 25 H, Urine RBC 0 SEEN, Urine WBC 5-10 SEEN, Ur Squamous Epith Cells 0 SEEN, Urine Bacteria 0 SEEN, Hyaline Casts 0-5 SEEN, Urine Mucus 0 SEEN 09/18/24 13:45: Lactic Acid 2.3 H* Micro: Microbiology 09/18/24 13:45 Mucosa - Nose SARS-CoV-2, Influenza & RSV (PCR) - Final Rhythm Strip Rhythm Strip: Sinus Rhythm Rate: 90 Ectopy: None Imaging Radiology Impression Chest X-Ray 09/18/24 13:20 IMPRESSION: No acute process detected. Reading [facility] Assessment & Plan Assessment/Plan (1) Sepsis: (2) Acute kidney injury: PLAN: Plan 1. Severe sepsis of unclear source/STACI ? She received 3 L of fluid in the ER with a beautiful response to his blood pressure ? Continue with IV fluids ? Will administer broad-spectrum antibiotics with Vanco and Zosyn ? Will plan for a CT of the chest abdomen and pelvis with contrast tomorrow if his renal function is improved ? Will add oral prednisone as he takes 5 mg of prednisone twice daily, as a stress dose ? Will have wound care evaluate his Mohs surgical site while here ? Part of his STACI is due to the fact that he has been taking Advil frequently for his headache 2. Metastatic prostate cancer ? He has been having headaches and he did tell his oncologist about it who did not feel that it warranted imaging at this time as they felt that it was relatedto his Mohs surgery, however if this continues would recommend MRI ? Will stress dose of steroids with prednisone ? Will hold his cancer medications 3. Hyperlipidemia ? Can continue his Lipitor ? 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 Continue with Flomax DVT: Heparin Sepsis Attestation Sepsis Attestation: Agree w/Sepsis Date exam was performed: 09/18/24 Time exam was performed: 14:00 Possible Source of Sepsis: Other Sepsis Organ Dysfunction Criteria Present: SBP < 90 mmHg or MAP < 65 mmHg, Creatinine > 2.0 mg/dL and Lactic Acid > 2 mmol/L Fluid Resuscitation Fluid resuscitation indicated?: Yes Fluid Resuscitation ordered: 30 ml/kg fluid bolus ordered Sepsis Note Date exam was performed: 09/18/24 Time exam was performed: 16:00 Sepsis Attestation: Sepsis re-evaluation was performed Response to fluids: Fluid responsive hypotension Charges/Coding Visit Charges Inpatient E&M: 68750 Init Hosp L3 09/18/24 1620 <Electronically signed by Ivan Nugent MD> Cosigner Signature (if applicable): CC: Dr. López Ocampo MD; Dr. Ivan Nugent MD~ Signed [facility] Work Phone: 1(483) [phone] Consult note [facility] Medical Records Department [address] [place] [address] Pharmacokinetic/Renal -Consult 09/18/24 1719 MR#: [id number] Acct: [id number] Name: LUTHER CASTILLO II Rep #:[id number] : 1955 69 From: Ivan Winchester [facility] PCP: Dr. López Ocampo MD Status :ADM IN Y Location: ICU ICU03-1 Consult Antibiotic Management Pharmacy has been consulted to manage selected antibiotic: Vancomycin Type of Intervention Type of Consult: New start Suspected Infection Suspected Infection: Sepsis Labs Labs: Sodium 137 mmol/L (133-145) 09/18/24 12:40 Potassium 4.1 mmol/L (3.3-5.1) 09/18/24 12:40 Chloride 102 mmol/L (98-108) 09/18/24 12:40 Carbon Dioxide 20.3 mmol/L (21.0-32.0) L 09/18/24 12:40 Anion Gap 14 (5-15) 09/18/24 12:40 BUN 43 mg/dL (4-19) H 09/18/24 12:40 Creatinine 2.13 mg/dL (0.70-1.20) H 09/18/24 12:40 Est GFR (MDRD) Non-Af 32 (>60) L 09/18/24 12:40 BUN/Creatinine Ratio 20.1 RATIO (10-20) H 09/18/24 12:40 Glucose 75 mg/dL (70-99) 09/18/24 12:40 Microbiology Microbiology: Microbiology 09/18/24 13:45 Mucosa - Nose SARS-CoV-2, Influenza & RSV (PCR) - Final Dosing Weight Weight used for dosin kg Estimated Creatinine Clearance Estimated Creatinine Clearance: 30ml/min Goal Trough Goal Trough: 15-20 mcg/mL Pharmacy Plan for Drug Dosing Pharmacy Plan for Drug Dosing: NEW START IV VANCOMYCIN Consulting Physician: Dr. Nugent Indication: Sepsis Goal Trough: 15-20 SrCr: 2.13 CrCl: 30.4 ml/min Comments: pt received a 1750mg loading dose in the ER on 09/18/24 at 1636 Vancomycin Dose: based on patients weight and renal function recommend an initial dose of 750mg q24h starting 09/19 at 1600. trough prior to the 3rd dose Pending Level: 09/20/24 at 1530 Pharmacy Service will continue to monitor and adjust dosing as required. Follow-Up Labs Follow-Up Labs: Trough: Vancomycin (09/20/24 at 1530) 09/18/24 1720 ing [facility]> Date _ Ivan Edwards [facility] Cosigner Signature (if applicable): Date CC: ~ Signed [facility]06-14-2025 Discharge summary Author Augustin Carney [facility] Note Date/Time September 18, 2024 3:16 pm [facility] Medical Records Department [address] [place] [address] Emergency Department Summary 09/18/24 MR#: [id number] Acct: [id number] Name: LUTHER CASTILLO II Rep #:[id number] : 1955 69 From: Augustin Carney MD PCP: Dr. López Ocampo MD Status :REG ER Location: ED HPI History of Present Illness Chief Complaint: Dizziness Informant: patient Onset/Context/Timing Onset: Today and Yesterday Context: Gradual Onset Timing: Continuous Current Severity: Moderate Maximum Severity: Moderate Narrative Narrative: 69-year-old male immunotherapy for stage IV prostate cancer with bony mets. Yesterday he started feeling dizzy. Mild shortness of breath. Nausea. Fever as high as 100. No vomiting. No diarrhea. No dysuria. No cough. No rashes. No abdominal pain. Prior similar symptoms: No Recent Illness/Hospitalization: No PFSH PFSH Medical History (Updated 09/18/24 @ 15:[address] Augustin Carney MD) Dizziness Home Medications ?Medication ?Instructions ?Recorded ?Last Taken ?Type abiraterone 250 mg tablet 1,000 mg PO DAILY prostate c ancer 12/11/23 09/17/24 History atorvastatin 20 mg tablet 20 mg PO QHS cholesterol 08/2809/17/24 History prednisone 5 mg tablet 5 mg PO BID prostate 4 09/17/24 History tamsulosin 0.4 mg capsule 0.4 mg PO DAILY prostate 08/2809/17/24 History cimetidine 200 mg tablet (Tagamet 200 mg PO BID 09/17/24 History HB) leuprolide acetate (6 month) 45 mg 45 mg subcut .COMPL EX 02/05/24 09/15/24 History (6 month) subcutaneous syringe (Eligard) darbepoetin dagmar in polysorbat See Rx Instructions IV .COMPLEX 09/18/24 Unknown History Allergy/AdvReac Type Severity Reaction Status Date / Time No Known Allergies Allergy Verified 09/18/24 12:29 Social History Smoking Status: Never smoker ROS ROS ED ROS Narrative Fever of 101. Short of breath. Nausea. Dizziness. Hypotension. Constitutional Constitutional ED: Reports fever(s) Eyes Eyes: Denies blurry vision ENT ENT ED: Denies ear pain Cardiovascular Cardiovascular: Denies chest pain Respiratory/Chest Respiratory/Chest: Reports dyspnea; Denies cough Gastrointestinal Gastrointestinal: Reports nausea; Denies abdominal pain, constipation, diarrhea,melena or vomiting Genitourinary Genitourinary ED: Denies dysuria or hematuria Musculoskeletal Musculoskeletal: Denies arthralgias Integumentary Denies abscess Neurologic Neurologic: Reports headache(s) Psychiatric Psychiatric: Denies anxiety Endocrine Endocrinology: Denies cold intolerance Hematologic/Lymphatic Hematologic/Lymphatic: Reports none Allergic/Immunologic Allergic/Immunologic ED: Denies mouth swelling, tongue swelling or urticaria EXAM Physical Exam Narrative Exam Narrative: 69-year-old male lying in bed. He is hypotensive at 80/72. There is family at bedside. He possibly may be septic. H EENT exam mild dry mucous membranes. Milady got a bandage on top of his head from recent Mohs surgery. There is no cellulitis. Neck nontender no lymphadenopathy. No JVD. Lungs clear to auscultation bilaterally. Heart regular rhythm no murmur. Chest wall ribs nontender. Abdomen soft nontender. No peritoneal signs. No localizing tenderness. No hernia or mass. No obstruction. Back nontender. Moving all 4 extremities. Nontender no edema. No cellulitis. No cords. Neurologically he is awake and alert. Answer questions following commands. Normal strength. Const Vital Signs: 09/18/24 12:24 09/18/24 12:26 09/18/24 12:42 Temperature 97.8 F Temperature Source Oral Pulse Rate 93 88 Respiratory Rate 18 18 Blood Pressure 56/34 L 56/34 L 80/72 L Blood Pressure Mean 41 41 74 Pulse Ox 97 95 Oxygen Delivery Method Room Air Room Air 09/18/24 13:18 09/18/24 13:51 09/18/24 14:30 Temperature 98.4 F Temperature Source Oral Pulse Rate 87 85 Respiratory Rate 19 H 20 H Blood Pressure 70/51 L 85/53 L Blood Pressure Mean 57 63 Pulse Ox 93 93 Oxygen Delivery Method Room Air Room Air Positive well nourished and well developed; Negative for cachectic, contracturesor unkempt General Appearance ED: well developed; Negative for unkempt, cachectic, contractures, cyanotic, diaphoretic, NAD or pallor Nutritional Appearance: Negative for cachectic HEENT Reports dry mucous membranes Negative for trauma or tenderness Mouth ED: Yes dry mucous membranes Mouth: dry mucous membranes Eyes PERRL and EOMs intact bilaterally Neck no lymphadenopathy, supple and no JVD Chest Wall inspection of chest normal and palpation of chest normal Resp normal respiratory effort and clear to auscultation bilaterally Cardio regular rate, regular rhythm, S1 normal heart sound, S2 normal heart sound and no murmurs GI normal to inspection, nondistended, normoactive bowel sounds, non-tender, non-distended and no masses Palpation: soft; Negative for tender, guarding or rebound tenderness present Back/Spine no CVA tenderness General Back: Negative for CVA tenderness Cervical Spine: Negative for cervical spine tenderness Thoracic Spine / Upper Back: Negative for thoracic spinal tenderness or paraspinal muscle tenderness Lumbar Spine / Lower Back: Negative for lumbar spinal tenderness Extremity normal to inspection General Extremety ED: Negative for edema or tenderness General Extremity: Negative for edema Neuro oriented x3 and CN's II-XII intact bilaterally Sensorium / Orientation: alert; Negative for orientation impaired Motor Exam: strength 5/5 throughout Psych mental status grossly normal Appearance: Negative for unkempt Attitude: No agitated Mood & Affect: Negative for depressed, anxious or tearful Skin no rashes or lesions noted, no wounds and skin turgor normal General Skin Exam: Negative for jaundice or pallor Lesions: No lesion noted Rashes: No rashes noted Trauma: Negative for abrasion Wounds: Negative for wounds noted MDM MDM MDM Narrative Medical decision making narrative: 69-year-old male on immunotherapy for prostate cancer with bony mets is hypotensive with a low-grade fever at home the 100 101 started yesterday. Concern for sepsis, dehydration versus other etiologies. Will place in the sepsis protocol workup. Received 2 L of saline. Zofran for his nausea. Patient will need to be admitted. Repeat exam at 3 PM today states he is feeling improved. His blood pressure is currently 85/52. He said he feels a little better. I gone over the test results of both he and his family. I spoke to the hospitalist. He can get 1/4 L of fluid. Or start him on Zosyn and Vanco. He will be admitted to the ICU. Presumption of sepsis. Acute kidney injury. Known cancer. Would like to get aCAT scan with IV contrast due to his current kidney function we will hold off onthat at this time. History & Record Review Discussion w/independent historian: Patient and Family Additional record(s) reviewed:: Prior inpatient record, Prior outpatient record,Prior ED visit and Prior labs Lab Data Attestation: I reviewed the patient's lab results. Lab results narrative: CBC shows a white count of 4.4. H&H 8.6 and 29.3. Platelets 119. PT/INR 17 and 1.4. PTT 36. Electrolytes show a gap 14. BUN and creatinine of 43 and 2.1. Glucose 75. Lactic acid 2.3. Liver enzymes unremarkable. UA normal. 5-10 white cells no bacteria. No nitrates. Culture pending. Chest x-ray negative. COVID, flu and RSV are negative. Labs: Laboratory Results - last 24 hr 09/18/24 09/18/24 09/18/24 12:40 13:30 13:45 WBC 4.4 RBC 3.63 L Hgb 8.6 L Hct 29.3 L MCV 80.7 MCH 23.7 L MCHC 29.4 L RDW Std Deviation 62.0 H RDW Coeff of Lydia 21.4 H Plt Count 119 L MPV 8.8 Immature Gran % (Auto) 0.200 Neut % (Auto) 87.5 H Lymph % (Auto) 10.7 L Bullock % (Auto) 0.9 Eos % (Auto) 0.5 Baso % (Auto) 0.2 Absolute Neuts (auto) 3.8 Absolute Lymphs (auto) 0.47 L Nucleated RBC % 0 Hypochromasia 1+ Anisocytosis 1+ PT 17.7 H INR 1.4 APTT 36.6 H Sodium 137 Potassium 4.1 Chloride 102 Carbon Dioxide 20.3 L Anion Gap 14 BUN 43 H Creatinine 2.13 H Estim Creat Clear Calc 30.37 L Est GFR (MDRD) Non-Af 32 L BUN/Creatinine Ratio 20.1 H Glucose 75 Lactic Acid 2.3 H* Calcium 8.6 Total Bilirubin 1.76 H AST 28 ALT 20 Alkaline Phosphatase 152 H Troponin T High Sens 47 H Total Protein 6.1 Albumin 3.3 L Globulin 2.8 Albumin/Globulin Ratio 1.2 Urine Color Yellow Urine Clarity Clear Urine pH 6.0 Ur Specific [place] 1.015 Urine Protein 30 H Urine Glucose (UA) Normal Urine Ketones 5 H Urine Occult Blood 10 H Urine Nitrite Negative Urine Bilirubin 1 H Urine Urobilinogen 1 H Ur Leukocyte Esterase 25 H Urine RBC 0 SEEN Urine WBC 5-10 SEEN Ur Squamous Epith Cells 0 SEEN Urine Bacteria 0 SEEN Hyaline Casts 0-5 SEEN Urine Mucus 0 SEEN Radiography Chest X-Ray - ED: 1 View, Read by ED Physician, Read by Radiologist, Normal, Heart, Lungs, Mediastinum, Bony Structures, No Acute Disease and Chronic Changes Diagnostic Testing: Clinical Impression(s) from Imaging Studies Chest X-Ray 09/18/24 13:20 IMPRESSION: No acute process detected. Reading Location: [facility] Chest x-ray, portable, single view interpreted by myself shows no acute abnormality. Rhythm Strip Rhythm Strip: Sinus Rhythm Rate: 90 Ectopy: None EKG Initial EKG: Attestation: I personally reviewed and interpreted this EKG as follows: Interpretation: Sinus Rhythm and No Acute Injury Pattern Comments: Sinus rhythm rate of 90 no acute signs of ME or ischemia. No STelevation. No dysrhythmia. He does have inverted T waves in V1 to. Critical Care Time Critical Care Time: Yes Critical care time (excluding procedures): 30-74 minutes, Including time spent:,Discussing w/Patient &/or Family/Export Sales Assistant, Discussing w/Consultants, ArrangingAdmission or Transfer and - (40 minutes) Discharge Plan Triage Chief Complaint: Dizziness ED Provider: Augustin Carney Dx/Rx/DC Orders Clinical Impression: Acute hypotension, History of prostate cancer, Sepsis, Acute kidney injury, Acute dehydration Prescriptions: No Action cimetidine [Tagamet HB] 200 mg tablet 200 mg PO BID Rx Instructions: administer with meals Eligard (6 month) 45 mg syringe 45 mg subcut .COMPLEX Rx Instructions: 45 mg subcutaneously EVERY 6 MONTHS; atorvastatin 20 mg tablet 20 mg PO QHS prednisone 5 mg tablet 5 mg PO BID tamsulosin 0.4 mg capsule 0.4 mg PO DAILY abiraterone 250 mg tablet 1,000 mg PO DAILY darbepoetin dagmar in polysorbat [Aranesp (in polysorbate)] See Rx Instructions IV .COMPLEX Patient Comments: PT UNSURE OF STRENGTH, BUT TOOK THIS MONTH (SEPTEMBER 2024) Rx Instructions: intravenously EVERY MONTH; Primary Care Provider: López Ocampo Referrals: López Ocampo MD [Primary Care Provider] - Print Language: Belgian Disposition Disposition: Acute Care [facility] What to do if you have Problems For any increased pain, shortness of breath, bleeding, nausea or vomiting, chestpain, or any unexpected problems, contact your Primary Care Provider. Call [facility] ([phone]) or report to the closest Emergency Room. Call 911 if necessary. 09/18/24 1516 <Electronically signed by Augustin Carney MD> Cosigner Signature (if applicable): CC: Dr. López Ocampo MD ~ Signed [facility] Work Phone: 1(554) 229-373206-14-2025 Evaluation note* Diagnosis Onset Date Resolution Status Admit Date Acute acalculous cholecystitis acute September 18, 2024 3:12pm Acute kidney injury acute September 18, 2024 3:12pm Sepsis acute September 18 3:12pm [facility] Work Phone: [phone]) 845-886806-14-2025 Evaluation note* Diagnosis Onset Date Resolution Status Admit Date Acute acalculous cholecystitis acute September 18, 2024 3:12pm Acute kidney injury acute September 18, 2024 3:12pm Sepsis acute September 18 3:12pm 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 López Ocampo MD Status :ADM IN Location: ICU ICU03-1 HPI - General General Date of Admission: 09/18/24 HPI Narrative LUTHER CASTILLO, is a 69 M who presents to the hospital with dizziness and hypotension. He has a history of stage IV prostate cancer with mets to the bonethat he is currently on immunotherapy and hormonal therapy for. Both time he found that it was already metastatic so he has not undergone a prostatectomy. He has been having headaches for the last 3 weeks but they think that is due to his recent Mohs surgery that has not healed on his scalp. That area does not appear infected. He does not have a leukocytosis and he presented with an STACI to 2.13. He is also had a lactic acidosis of 2.3 and wasgiven several fluid boluses in the emergency room. No obvious signs of infection at the moment, UA is unremarkable as is chest x-ray. He does have an elevated alk phos which is likely due to his bonemets but does also have an elevated total bilirubin at 1.7 sick and he does have some scleral icterus. Initially when he presented to the hospital his systolic blood pressures were in the 50s with a MAP of 41, currently on my evaluation his MAP is 67 with a systolic blood pressure of 102. He started feeling unwell yesterday though given the severity of his vital signson arrival he has likely beensick for several days that was just asymptomatic secondary to his immunocompromise state. He is chronically on steroids and is unable to compensate. [facility] Medical History (Updated 09/18/24 @ 15:[address] Augustin Carney MD) Dizziness Home Medications ?Medication ?Instructions ?Recorded ?Last Taken ?Type abiraterone 250 mg tablet 1,000 mg PO DAILY prostate c ancer 12/11/23 09/17/24 History atorvastatin 20 mg tablet 20 mg PO QHS cholesterol 08/2809/17/24 History prednisone 5 mg tablet 5 mg PO BID prostate 4 09/17/24 History tamsulosin 0.4 mg capsule 0.4 mg PO DAILY prostate 08/2809/17/24 History cimetidine 200 mg tablet (Tagamet 200 mg PO BID 09/17/24 History HB) leuprolide acetate (6 month) 45 mg 45 mg subcut .COMPL EX 02/05/24 09/15/24 History (6 month) subcutaneous syringe (Eligard) darbepoetin dagmar in polysorbat See Rx Instructions IV .COMPLEX 09/18/24 Unknown History Allergy/AdvReac Type Severity Reaction Status Date / Time No Known Allergies Allergy Verified 09/18/24 12:29 Family History (Updated 09/18/24 @ 16:[address] Ivan Nugent MD) Other Cancer Surgical History (Updated 09/18/24 @ 16:[address] Ivan Nugent MD) Status post Mohs surgery Social History Smoking Status: Never smoker ROS Constitutional Constitutional: Reports fatigue and weakness; Denies chills, fever(s) or malaise Eyes Eyes: Denies blurry vision ENT HEENT: Denies headache(s) or nasal discharge Cardiovascular Cardiovascular: Denies chest pain, dyspnea on exertion or syncope Respiratory/Chest Respiratory/Chest: Denies cough, shortness of breath at rest or shortness of breath with exertion Gastrointestinal Gastrointestinal: Reports nausea; Denies constipation, diarrhea or vomiting Genitourinary Genitourinary: Denies dysuria Neurologic Neurologic: Reports headache(s); Denies focal weakness, numbness or tremor(s) Psychiatric Psychiatric: Denies anxiety or depression Vital Signs Vital Signs Vital Signs: 09/18/24 12:24 09/18/24 12:26 09/18/24 12:42 Temperature 97.8 F Temperature Source Oral Pulse Rate 93 88 Respiratory Rate 18 18 Blood Pressure 56/34 L 56/34 L 80/72 L Blood Pressure Mean 41 41 74 Pulse Ox 97 95 Oxygen Delivery Method Room Air Room Air 09/18/24 13:18 09/18/24 13:51 09/18/24 14:30 Temperature 98.4 F Temperature Source Oral Pulse Rate 87 85 Respiratory Rate 19 H 20 H Blood Pressure 70/51 L 85/53 L Blood Pressure Mean 57 63 Pulse Ox 93 93 Oxygen Delivery Method Room Air Room Air Weight Weight: 148 lb 12.992 oz Body Mass Index (BMI) 22.6 Physical Exam Narrative General: Alert little drowsy, Oriented x3, Cooperative, No apparent distress HEENT: Atraumatic, PERRLA, EOMI, Normocephalic, Mohs surgery on his right scalp dressing intact with fluid collection underneath does not appear infected, no surrounding erythema Oral: Moist Mucosa Neck: Supple, No JVD Lungs: Diminished, Normal air movement, No rhonchi, No wheeze, No rales Cardiovascular: Regular rate, Regular Rhythm, Normal S1, Normal S2, No murmurs Abdomen: Soft, Non Tender, Non-Distended, No Hepato-splenomegaly Extremities: No edema, Capillary Refill Less than 3 Seconds Skin: No rashes, No breakdown Musculoskeletal: No Tenderness to Palpation of Joints or Extremities Neurological: No focal neurological deficits, moves all extremities Psych/Mental Status: Normal Affect, Appropriate Results Lab / Micro Data 09/18/24 12:40 09/18/24 12:40 Labs: Laboratory Results - last 24 hr 09/18/24 12:40: WBC 4.4, RBC 3.63 L, Hgb 8.6 L, Hct 29.3 L, MCV 80.7, MCH 23.7 L, MCHC 29.4 L, RDW Std Deviation 62.0 H, RDW Coeff of Lydia 21.4 H, Plt Count 119 L, MPV 8.8, Immature Gran % (Auto) 0.200, Neut % (Auto) 87.5 H, Lymph % (Auto) 10.7 L, Bullock % (Auto) 0.9, Eos % (Auto) 0.5, Baso % (Auto) 0.2, Absolute Neuts (auto) 3.8, Absolute Lymphs (auto) 0.47 L, Nucleated RBC % 0, Hypochromasia 1+, Anisocytosis 1+, PT 17.7 H, INR 1.4, APTT 36.6 H, Sodium 137, Potassium 4.1, Chloride 102, Carbon Dioxide 20.3 L, Anion Gap 14, BUN 43 H, Creatinine 2.13 H, Estim Creat Clear Calc 30.37 L, Est GFR (MDRD) Non-Af 32 L, BUN/Creatinine Ratio20.1 H, Glucose 75, Calcium 8.6, Total Bilirubin 1.76 H, AST 28,ALT 20, Alkaline Phosphatase 152 H, Troponin T High Sens 47 H, Total Protein 6.1, Albumin3.3 L, Globulin 2.8, Albumin/Globulin Ratio 1.2 09/18/24 13:30: Urine Color Yellow, Urine Clarity Clear, Urine pH 6.0, Ur Specific [place] 1.015, Urine Protein 30 H, Urine Glucose (UA) Normal, Urine Ketones 5 H, Urine Occult Blood 10 H, Urine Nitrite Negative, Urine Bilirubin 1 H, Urine Urobilinogen 1 H, Ur Leukocyte Esterase 25 H, Urine RBC 0 SEEN, Urine WBC 5-10 SEEN, Ur Squamous Epith Cells 0 SEEN, Urine Bacteria 0 SEEN, Hyaline Casts 0-5 SEEN, Urine Mucus 0 SEEN 09/18/24 13:45: Lactic Acid 2.3 H* Micro: Microbiology 09/18/24 13:45 Mucosa - Nose SARS-CoV-2, Influenza & RSV (PCR) - Final Rhythm Strip Rhythm Strip: Sinus Rhythm Rate: 90 Ectopy: None Imaging Radiology Impression Chest X-Ray 09/18/24 13:20 IMPRESSION: No acute process detected. Reading Location: [facility] Assessment & Plan Assessment/Plan (1) Sepsis: (2) Acute kidney injury: PLAN: Plan 1. Severe sepsis of unclear source/STACI ? She received 3 L of fluid in the ER with a beautiful response to his blood pressure ? Continue with IV fluids ? Will administer broad-spectrum antibiotics with Vanco and Zosyn ? Will plan for a CT of the chest abdomen and pelvis with contrast tomorrow if his renal function is improved ? Will add oral prednisone as he takes 5 mg of prednisone twice daily, as a stress dose ? Will have wound care evaluate his Mohs surgical site while here ? Part of his STACI is due to the fact that he has been taking Advil frequently for his headache 2. Metastatic prostate cancer ? He has been having headaches and he did tell his oncologist about it who did not feel that it warranted imaging at this time as they felt that it was relatedto his Mohs surgery, however if this continues would recommend MRI ? Will stress dose of steroids with prednisone ? Will hold his cancer medications 3. Hyperlipidemia ? Can continue his Lipitor ? 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 Continue with Flomax DVT: Heparin Sepsis Attestation Sepsis Attestation: Agree w/Sepsis Date exam was performed: 09/18/24 Time exam was performed: 14:00 Possible Source of Sepsis: Other Sepsis Organ Dysfunction Criteria Present: SBP < 90 mmHg or MAP < 65 mmHg, Creatinine > 2.0 mg/dL and Lactic Acid > 2 mmol/L Fluid Resuscitation Fluid resuscitation indicated?: Yes Fluid Resuscitation ordered: 30 ml/kg fluid bolus ordered Sepsis Note Date exam was performed: 09/18/24 Time exam was performed: 16:00 Sepsis Attestation: Sepsis re-evaluation was performed Response to fluids: Fluid responsive hypotension Charges/Coding Visit Charges Inpatient E&M: 83226 Init Hosp 09/18/24 1623 Cosigner Signature (if applicable): CC: Dr. López Ocampo MD; Dr. Ivan Nugent MD~ Signed [facility]06-14-2025 Discharge summary [facility] Medical Records Department [address] [place] [address] Emergency Department Summary 09/18/24 MR#: [id number] Acct: [id number] Name: LUTHER CASTILLO II Rep #:[id number] : 1955 69 From: Augustin Carney MD PCP: Dr. López Ocampo MD Status :REG ER Location: ED HPI History of Present Illness Chief Complaint: Dizziness Informant: patient Onset/Context/Timing Onset: Today and Yesterday Context: Gradual Onset Timing: Continuous Current Severity: Moderate Maximum Severity: Moderate Narrative Narrative: 69-year-old male immunotherapy for stage IV prostate cancer with bony mets. Yesterday he started feeling dizzy. Mild shortness of breath. Nausea. Fever as high as 100. No vomiting. No diarrhea. No dysuria. No cough. No rashes. No abdominal pain. Prior similar symptoms: No Recent Illness/Hospitalization: No PFSH PFSH Medical History (Updated 09/18/24 @ 15:[address] Augustin Carney MD) Dizziness Home Medications ?Medication ?Instructions ?Recorded ?Last Taken ?Type abiraterone 250 mg tablet 1,000 mg PO DAILY prostate c ancer 12/11/23 09/17/24 History atorvastatin 20 mg tablet 20 mg PO QHS cholesterol 08/2809/17/24 History prednisone 5 mg tablet 5 mg PO BID prostate 4 09/17/24 History tamsulosin 0.4 mg capsule 0.4 mg PO DAILY prostate 08/2809/17/24 History cimetidine 200 mg tablet (Tagamet 200 mg PO BID 09/17/24 History HB) leuprolide acetate (6 month) 45 mg 45 mg subcut .COMPL EX 02/05/24 09/15/24 History (6 month) subcutaneous syringe (Eligard) darbepoetin dagmar in polysorbat See Rx Instructions IV .COMPLEX 09/18/24 Unknown History Allergy/AdvReac Type Severity Reaction Status Date / Time No Known Allergies Allergy Verified 09/18/24 12:29 Social History Smoking Status: Never smoker ROS ROS ED ROS Narrative Fever of 101. Short of breath. Nausea. Dizziness. Hypotension. Constitutional Constitutional ED: Reports fever(s) Eyes Eyes: Denies blurry vision ENT ENT ED: Denies ear pain Cardiovascular Cardiovascular: Denies chest pain Respiratory/Chest Respiratory/Chest: Reports dyspnea; Denies cough Gastrointestinal Gastrointestinal: Reports nausea; Denies abdominal pain, constipation, diarrhea,melena or vomiting Genitourinary Genitourinary ED: Denies dysuria or hematuria Musculoskeletal Musculoskeletal: Denies arthralgias Integumentary Denies abscess Neurologic Neurologic: Reports headache(s) Psychiatric Psychiatric: Denies anxiety Endocrine Endocrinology: Denies cold intolerance Hematologic/Lymphatic Hematologic/Lymphatic: Reports none Allergic/Immunologic Allergic/Immunologic ED: Denies mouth swelling, tongue swelling or urticaria EXAM Physical Exam Narrative Exam Narrative: 69-year-old male lying in bed. He is hypotensive at 80/72. There is family at bedside. He possibly may be septic. H EENT exam mild dry mucous membranes. Hehas got a bandage on top of his head from recent Mohs surgery. There is no cellulitis. Neck nontender no lymphadenopathy. No JVD. Lungs clear to auscultation bilaterally. Heart regular rhythm no murmur. Chest wall ribs nontender. Abdomen soft nontender. No peritoneal signs. No localizing tenderness. No hernia or mass. No obstruction. Back nontender. Moving all 4 extremities. Nontender no edema. No cellulitis. No cords. Neurologically he is a wake and alert. Answer questions following commands. Normal strength. Const Vital Signs: 09/18/24 12:24 09/18/24 12:26 09/18/24 12:42 Temperature 97.8 F Temperature Source Oral Pulse Rate 93 88 Respiratory Rate 18 18 Blood Pressure 56/34 L 56/34 L 80/72 L Blood Pressure Mean 41 41 74 Pulse Ox 97 95 Oxygen Delivery Method Room Air Room Air 09/18/24 13:18 09/18/24 13:51 09/18/24 14:30 Temperature 98.4 F Temperature Source Oral Pulse Rate 87 85 Respiratory Rate 19 H 20 H Blood Pressure 70/51 L 85/53 L Blood Pressure Mean 57 63 Pulse Ox 93 93 Oxygen Delivery Method Room Air Room Air Positive well nourished and well developed; Negative for cachectic, contracturesor unkempt General Appearance ED: well developed; Negative for unkempt, cachectic, contractures, cyanotic, diaphoretic, NAD or pallor Nutritional Appearance: Negative for cachectic HEENT Reports dry mucous membranes Negative for trauma or tenderness Mouth ED: Yes dry mucous membranes Mouth: dry mucous membranes Eyes PERRL and EOMs intact bilaterally Neck no lymphadenopathy, supple and no JVD Chest Wall inspection of chest normal and palpation of chest normal Resp normal respiratory effort and clear to auscultation bilaterally Cardio regular rate, regular rhythm, S1 normal heart sound, S2 normal heart sound and no murmurs GI normal to inspection, nondistended, normoactive bowel sounds, non-tender, non- distended and no masses Palpation: soft; Negative for tender, guarding or rebound tenderness present Back/Spine no CVA tenderness General Back: Negative for CVA tenderness Cervical Spine: Negative for cervical spine tenderness Thoracic Spine / Upper Back: Negative for thoracic spinal tenderness or paraspinal muscle tenderness Lumbar Spine / Lower Back: Negative for lumbar spinal tenderness Extremity normal to inspection General Extremety ED: Negative for edema or tenderness General Extremity: Negative for edema Neuro oriented x3 and CN's II-XII intact bilaterally Sensorium / Orientation: alert; Negative for orientation impaired Motor Exam: strength 5/5 throughout Psych mental status grossly normal Appearance: Negative for unkempt Attitude: No agitated Mood & Affect: Negative for depressed, anxious or tearful Skin no rashes or lesions noted, no wounds and skin turgor normal General Skin Exam: Negative for jaundice or pallor Lesions: No lesion noted Rashes: No rashes noted Trauma: Negative for abrasion Wounds: Negative for wounds noted MDM MDM MDM Narrative Medical decision making narrative: 69-year-old male on immunotherapy for prostate cancer with bony mets is hypotensive with a low-grade fever at home the 100 101 started yesterday. Concern for sepsis, dehydration versus other etiologies. Will place in the sepsis protocol workup. Received 2 L of saline. Zofran for his nausea. Patient will need to be admitted. Repeat exam at 3 PM today states he is feeling improved. His blood pressure is currently 85/52. He said he feels a little better. I gone over the test results of both he and his family. I spoke to the hospitalist. He can get 1/4 L of fluid. Or start him on Zosyn and Vanco. He will be admitted to the ICU. Presumption of sepsis. Acute kidney injury. Known cancer. Would like to get aCAT scan with IVcontrast due to his current kidney function we will hold off onthat at this time. History & Record Review Discussion w/independent historian: Patient and Family Additional record(s) reviewed:: Prior inpatient record, Prior outpatient record,Prior ED visit and Prior labs Lab Data Attestation: I reviewed the patient's lab results. Lab results narrative: CBC shows a white count of 4.4. H&H 8.6 and 29.3. Platelets 119. PT/INR 17 and 1.4. PTT 36. Electrolytes show a gap 14. BUN and creatinine of 43 and 2.1. Glucose 75. Lactic acid 2.3. Liver enzymes unremarkable. UA normal. 5-10 white cells no bacteria. No nitrates. Culture pending. Chest x-ray negative. COVID, flu and RSV are negative. Labs: Laboratory Results - last 24 hr 09/18/24 09/18/24 09/18/24 12:40 13:30 13:45 WBC 4.4 RBC 3.63 L Hgb 8.6 L Hct 29.3 L MCV 80.7 MCH 23.7 L MCHC 29.4 L RDW Std Deviation 62.0 H RDW Coeff of Lydia 21.4 H Plt Count 119 L MPV 8.8 Immature Gran % (Auto) 0.200 Neut % (Auto) 87.5 H Lymph % (Auto) 10.7 L Bullock % (Auto) 0.9 Eos % (Auto) 0.5 Baso % (Auto) 0.2 Absolute Neuts (auto) 3.8 Absolute Lymphs (auto) 0.47 L Nucleated RBC % 0 Hypochromasia 1+ Anisocytosis 1+ PT 17.7 H INR 1.4 APTT 36.6 H Sodium 137 Potassium 4.1 Chloride 102 Carbon Dioxide 20.3 L Anion Gap 14 BUN 43 H Creatinine 2.13 H Estim Creat Clear Calc 30.37 L Est GFR (MDRD) Non-Af 32 L BUN/Creatinine Ratio 20.1 H Glucose 75 Lactic Acid 2.3 H* Calcium 8.6 Total Bilirubin 1.76 H AST 28 ALT 20 Alkaline Phosphatase 152 H Troponin T High Sens 47 H Total Protein 6.1 Albumin 3.3 L Globulin 2.8 Albumin/Globulin Ratio 1.2 Urine Color Yellow Urine Clarity Clear Urine pH 6.0 Ur Specific [place] 1.015 Urine Protein 30 H Urine Glucose (UA) Normal Urine Ketones 5 H Urine Occult Blood 10 H Urine Nitrite Negative Urine Bilirubin 1 H Urine Urobilinogen 1 H Ur Leukocyte Esterase 25 H Urine RBC 0 SEEN Urine WBC 5-10 SEEN Ur Squamous Epith Cells 0 SEEN Urine Bacteria 0 SEEN Hyaline Casts 0-5 SEEN Urine Mucus 0 SEEN Radiography Chest X-Ray - ED: 1 View, Read by ED Physician, Read by Radiologist, Normal, Heart, Lungs, Mediastinum, Bony Structures, No Acute Disease and Chronic Changes Diagnostic Testing: Clinical Impression(s) from Imaging Studies Chest X-Ray 09/18/24 13:20 IMPRESSION: No acute process detected. Reading Location: [facility] Chest x-ray, portable, single view interpreted by myself shows no acute abnormality. Rhythm Strip Rhythm Strip: Sinus Rhythm Rate: 90 Ectopy: None EKG Initial EKG: Attestation: I personally reviewed and interpreted this EKG as follows: Interpretation: Sinus Rhythm and No Acute Injury Pattern Comments: Sinus rhythm rate of 90 no acute signs of ME or ischemia. No STelevation. No dysrhythmia.He does have inverted T waves in V1 to. Critical Care Time Critical Care Time: Yes Critical care time (excluding procedures): 30-74 minutes, Including time spent:,Discussing w/Patient &/or Family/Export Sales Assistant, Discussing w/Consultants, ArrangingAdmission or Transfer and - (40 minutes) Discharge Plan Triage Chief Complaint: Dizziness ED Provider: Augustin Carney Dx/Rx/DC Orders Clinical Impression: Acute hypotension, History of prostate cancer, Sepsis, Acute kidney injury, Acute dehydration Prescriptions: No Action cimetidine [Tagamet HB] 200 mg tablet 200 mg PO BID Rx Instructions: administer with meals Eligard (6 month) 45 mg syringe 45 mg subcut .COMPLEX Rx Instructions: 45 mg subcutaneously EVERY 6 MONTHS; atorvastatin 20 mg tablet 20 mg PO QHS prednisone 5 mg tablet 5 mg PO BID tamsulosin 0.4 mg capsule 0.4 mg PO DAILY abiraterone 250 mg tablet 1,000 mg PO DAILY darbepoetin dagmar in polysorbat [Aranesp (in polysorbate)] See Rx Instructions IV .COMPLEX Patient Comments: PT UNSURE OF STRENGTH, BUT TOOK THIS MONTH (SEPTEMBER 2024) Rx Instructions: intravenously EVERY MONTH; Primary Care Provider: López Ocampo Referrals: López Ocampo MD [Primary Care Provider] - Print Language: Belgian Disposition Disposition: Acute Care Hospital [facility] What to do if you have Problems For any increased pain, shortness of breath, bleeding, nausea or vomiting, chestpain, or any unexpected problems, contact your Primary Care Provider. Call [facility] ([phone]) or report tothe closest Emergency Room. Call 911 if necessary. 09/18/24 1516 Cosigner Signature (if applicable): CC: Dr. López Ocampo MD ~ Signed [facility]06-14-2025 Discharge summary Author Augustin Carney [facility] Note Date/Time September 18, 2024 3:16 pm [facility] Medical Records Department [address] [place] [address] Emergency Department Summary 09/18/24 MR#: [id number] Acct: [id number] Name: LUTHER CASTILLO II Rep #:[id number] : 1955 69 From: Augustin Carney MD PCP: Dr. López Ocampo MD Status :REG ER Location: ED HPI History of Present Illness Chief Complaint: Dizziness Informant: patient Onset/Context/Timing Onset: Today and Yesterday Context: Gradual Onset Timing: Continuous Current Severity: Moderate Maximum Severity: Moderate Narrative Narrative: 69-year-old male immunotherapy for stage IV prostate cancer with bony mets. Yesterday he started feeling dizzy. Mild shortness of breath. Nausea. Fever as high as 100. No vomiting. No diarrhea. No dysuria. No cough. No rashes. No abdominal pain. Prior similar symptoms: No Recent [facility] Medical History (Updated 09/18/24 @ 15:[address] Augustin Carney MD) Dizziness Home Medications ?Medication ?Instructions ?Recorded ?Last Taken ?Type abiraterone 250 mg tablet 1,000 mg PO DAILY prostate c ancer 12/11/23 09/17/24 History atorvastatin 20 mg tablet 20 mg PO QHS cholesterol 08/2809/17/24 History prednisone 5 mg tablet 5 mg PO BID prostate 2 4 09/17/24 History tamsulosin 0.4 mg capsule 0.4 mg PO DAILY prostate 08/2809/17/24 History cimetidine 200 mg tablet (Tagamet 200 mg PO BID 09/17/24 History HB) leuprolide acetate (6 month) 45 mg 45 mg subcut .COMPL EX 02/05/24 09/15/24 History (6 month) subcutaneous syringe (Eligard) darbepoetin dagmar in polysorbat See Rx Instructions IV .COMPLEX 09/18/24 Unknown History Allergy/AdvReac Type Severity Reaction Status Date / Time No Known Allergies Allergy Verified 09/18/24 12:29 Social History Smoking Status: Never smoker ROS ROS ED ROS Narrative Fever of 101. Short of breath. Nausea. Dizziness. Hypotension. Constitutional Constitutional ED: Reports fever(s) Eyes Eyes: Denies blurry vision ENT ENT ED: Denies ear pain Cardiovascular Cardiovascular: Denies chest pain Respiratory/Chest Respiratory/Chest: Reports dyspnea; Denies cough Gastrointestinal Gastrointestinal: Reports nausea; Denies abdominal pain, constipation, diarrhea,melena or vomiting Genitourinary Genitourinary ED: Denies dysuria or hematuria Musculoskeletal Musculoskeletal: Denies arthralgias Integumentary Denies abscess Neurologic Neurologic: Reports headache(s) Psychiatric Psychiatric: Denies anxiety Endocrine Endocrinology: Denies cold intolerance Hematologic/Lymphatic Hematologic/Lymphatic: Reports none Allergic/Immunologic Allergic/Immunologic ED: Denies mouth swelling, tongue swelling or urticaria EXAM Physical Exam Narrative Exam Narrative: 69-year-old male lying in bed. He is hypotensive at 80/72. There is family at bedside. He possibly may be septic. H EENT exam mild dry mucous membranes. Hehas got a bandage on top of his head from recent Mohs surgery. There is no cellulitis. Neck nontender no lymphadenopathy. No JVD. Lungs clear to auscultation bilaterally. Heart regular rhythm no murmur. Chest wall ribs nontender. Abdomen soft nontender. No peritoneal signs. No localizing tenderness. No hernia or mass. No obstruction. Back nontender. Moving all 4 extremities. Nontender no edema. No cellulitis. No cords. Neurologically he is awake and alert. Answer questions following commands. Normal strength. Const Vital Signs: 09/18/24 12:24 09/18/24 12:26 09/18/24 12:42 Temperature 97.8 F Temperature Source Oral Pulse Rate 93 88 Respiratory Rate 18 18 Blood Pressure 56/34 L 56/34 L 80/72 L Blood Pressure Mean 41 41 74 Pulse Ox 97 95 Oxygen Delivery Method Room Air Room Air 09/18/24 13:18 09/18/24 13:51 09/18/24 14:30 Temperature 98.4 F Temperature Source Oral Pulse Rate 87 85 Respiratory Rate 19 H 20 H Blood Pressure 70/51 L 85/53 L Blood Pressure Mean 57 63 Pulse Ox 93 93 Oxygen Delivery Method Room Air Room Air Positive well nourished and well developed; Negative for cachectic, contracturesor unkempt General Appearance ED: well developed; Negative for unkempt, cachectic, contractures, cyanotic, diaphoretic, NAD or pallor Nutritional Appearance: Negative for cachectic HEENT Reports dry mucous membranes Negative for trauma or tenderness Mouth ED: Yes dry mucous membranes Mouth: dry mucous membranes Eyes PERRL and EOMs intact bilaterally Neck no lymphadenopathy, supple and no JVD Chest Wall inspection of chest normal and palpation of chest normal Resp normal respiratory effort and clear to auscultation bilaterally Cardio regular rate, regular rhythm, S1 normal heart sound, S2 normal heart sound and no murmurs GI normal to inspection, nondistended, normoactive bowel sounds, non-tender, non-distended and no masses Palpation: soft; Negative for tender, guarding or rebound tenderness present Back/Spine no CVA tenderness General Back: Negative for CVA tenderness Cervical Spine: Negative for cervical spine tenderness Thoracic Spine / Upper Back: Negative for thoracic spinal tenderness or paraspinal muscle tenderness Lumbar Spine / Lower Back: Negative for lumbar spinal tenderness Extremity normal to inspection General Extremety ED: Negative for edema or tenderness General Extremity: Negative for edema Neuro oriented x3 and CN's II-XII intact bilaterally Sensorium / Orientation: alert; Negative for orientation impaired Motor Exam: strength 5/5 throughout Psych mental status grossly normal Appearance: Negative for unkempt Attitude: No agitated Mood & Affect: Negative for depressed, anxious or tearful Skin no rashes or lesions noted, no wounds and skin turgor normal General Skin Exam: Negative for jaundice or pallor Lesions: No lesion noted Rashes: No rashes noted Trauma: Negative for abrasion Wounds: Negative for wounds noted MDM MDM MDM Narrative Medical decision making narrative: 69-year-old male on immunotherapy for prostate cancer with bony mets is hypotensive with a low-grade fever at home the 100 101 started yesterday. Concern for sepsis, dehydration versus other etiologies. Will place in the sepsis protocol workup. Received 2 L of saline. Zofran for his nausea. Patient will need to be admitted. Repeat exam at 3 PM today states he is feeling improved. His blood pressure is currently 85/52. He said he feels a little better. I gone over the test results of both he and his family. I spoke to the hospitalist. He can get 1/4 L of fluid. Or start him on Zosyn and Vanco. He will be admitted to the ICU. Presumption of sepsis. Acute kidney injury. Known cancer. Would like to get aCAT scan with IV contrast due to his current kidney function we will hold off onthat at this time. History & Record Review Discussion w/independent historian: Patient and Family Additional record(s) reviewed:: Prior inpatient record, Prior outpatient record,Prior ED visit and Prior labs Lab Data Attestation: I reviewed the patient's lab results. Lab results narrative: CBC shows a white count of 4.4. H&H 8.6 and 29.3. Platelets 119. PT/INR 17 and 1.4. PTT 36. Electrolytes show a gap 14. BUN and creatinine of 43 and 2.1. Glucose 75. Lactic acid 2.3. Liver enzymes unremarkable. UA normal. 5-10 white cells no bacteria. No nitrates. Culture pending. Chest x-ray negative. COVID, flu and RSV are negative. Labs: Laboratory Results - last 24 hr 09/18/24 09/18/24 09/18/24 12:40 13:30 13:45 WBC 4.4 RBC 3.63 L Hgb 8.6 L Hct 29.3 L MCV 80.7 MCH 23.7 L MCHC 29.4 L RDW Std Deviation 62.0 H RDW Coeff of Lydia 21.4 H Plt Count 119 L MPV 8.8 Immature Gran % (Auto) 0.200 Neut % (Auto) 87.5 H Lymph % (Auto) 10.7 L Bullock % (Auto) 0.9 Eos % (Auto) 0.5 Baso % (Auto) 0.2 Absolute Neuts (auto) 3.8 Absolute Lymphs (auto) 0.47 L Nucleated RBC % 0 Hypochromasia 1+ Anisocytosis 1+ PT 17.7 H INR 1.4 APTT 36.6 H Sodium 137 Potassium 4.1 Chloride 102 Carbon Dioxide 20.3 L Anion Gap 14 BUN 43 H Creatinine 2.13 H Estim Creat Clear Calc 30.37 L Est GFR (MDRD) Non-Af 32 L BUN/Creatinine Ratio 20.1 H Glucose 75 Lactic Acid 2.3 H* Calcium 8.6 Total Bilirubin 1.76 H AST 28 ALT 20 Alkaline Phosphatase 152 H Troponin T High Sens 47 H Total Protein 6.1 Albumin 3.3 L Globulin 2.8 Albumin/Globulin Ratio 1.2 Urine Color Yellow Urine Clarity Clear Urine pH 6.0 Ur Specific [place] 1.015 Urine Protein 30 H Urine Glucose (UA) Normal Urine Ketones 5 H Urine Occult Blood 10 H Urine Nitrite Negative Urine Bilirubin 1 H Urine Urobilinogen 1 H Ur Leukocyte Esterase 25 H Urine RBC 0 SEEN Urine WBC 5-10 SEEN Ur Squamous Epith Cells 0 SEEN Urine Bacteria 0 SEEN Hyaline Casts 0-5 SEEN Urine Mucus 0 SEEN Radiography Chest X-Ray - ED: 1 View, Read by ED Physician, Read by Radiologist, Normal, Heart, Lungs, Mediastinum, Bony Structures, No Acute Disease and Chronic Changes Diagnostic Testing: Clinical Impression(s) from Imaging Studies Chest X-Ray 09/18/24 13:20 IMPRESSION: No acute process detected. [facility] Chest x-ray, portable, single view interpreted by myself shows no acute abnormality. Rhythm Strip Rhythm Strip: Sinus Rhythm Rate: 90 Ectopy: None EKG Initial EKG: Attestation: I personally reviewed and interpreted this EKG as follows: Interpretation: Sinus Rhythm and No Acute Injury Pattern Comments: Sinus rhythm rate of 90 no acute signs of ME or ischemia. No STelevation. No dysrhythmia. He does have inverted T waves in V1 to. Critical Care Time Critical Care Time: Yes Critical care time (excluding procedures): 30-74 minutes, Including time spent:,Discussing w/Patient &/or Family/Export Sales Assistant, Discussing w/Consultants, ArrangingAdmission or Transfer and - (40 minutes) Discharge Plan Triage Chief Complaint: Dizziness ED Provider: Augustin Carney Dx/Rx/DC Orders Clinical Impression: Acute hypotension, History of prostate cancer, Sepsis, Acute kidney injury, Acute dehydration Prescriptions: No Action cimetidine [Tagamet HB] 200 mg tablet 200 mg PO BID Rx Instructions: administer with meals Eligard (6 month) 45 mg syringe 45 mg subcut .COMPLEX Rx Instructions: 45 mg subcutaneously EVERY 6 MONTHS; atorvastatin 20 mg tablet 20 mg PO QHS prednisone 5 mg tablet 5 mg PO BID tamsulosin 0.4 mg capsule 0.4 mg PO DAILY abiraterone 250 mg tablet 1,000 mg PO DAILY darbepoetin dagmar in polysorbat [Aranesp (in polysorbate)] See Rx Instructions IV .COMPLEX Patient Comments: PT UNSURE OF STRENGTH, BUT TOOK THIS MONTH (SEPTEMBER 2024) Rx Instructions: intravenously EVERY MONTH; Primary Care Provider: López Ocampo Referrals: López Ocampo MD [Primary Care Provider] - Print Language: Belgian Disposition Disposition: Acute Care Hospital [facility] What to do if you have Problems For any increased pain, shortness of breath, bleeding, nausea or vomiting, chestpain, or any unexpected problems, contact your Primary Care Provider. Call [facility] ([phone]) or report to the closest Emergency Room. Call 911 if necessary. 09/18/24 1516 <Electronically signed by Augustin Carney MD> Cosigner Signature (if applicable): CC: Dr. López Ocampo MD ~ Signed [facility] Work Phone: [phone] 373-451406-14-2025 Radiology Diagnostic study note [facility] Imaging Services [address] [place], [place] [address] Chest 1 View (Portable) MR#: [id number] Acct: [id number] Name: LUTHER CASTILLO II Rep #: [id number] : 1955 M 69 From: Pet er Peer DO PCP: Dr. López Ocampo MD Status: PRE ER Study:Chest 1 View (Portable) Date of Exam: 09/18/24 Exam# [id number] Ordering Dr: Pawel Carney MD PROCEDURE: CHEST 1 VIEW (PORTABLE) 09/18/2024 REASON FOR EXAM: DYSPNEA TECHNIQUE: Frontal view of the chest. COMPARISON: Chest radiograph February 05, 2024 FINDINGS: Hardware: None. Heart: Normal size. Lungs: Grossly clear. Bones: No aggressive process. Other: RAD/Chest 1 View (Portable) IMPRESSION: No acute process detected. Reading [facility] CC: Dr. López Ocampo MD; Dr. 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 Wound was closed primarily and then dehisced and has been left to heal by second intent. Last visit was: 08-27-2024 for a nurse visit Current Treatment: Soap and water cleansing, vaseline to wound site and Duoderm dressing Patient Reports: I don't think it has changed since last time I was here. Current Outpatient Medications Medication Sig Ibuprofen 200 mg cap Take by mouth every 6 hours as needed. predniSONE (DELTASONE) 5 mg tablet Take 1 [...] SUBCUTANEOUS) Inject subcutaneously once every 6 months. iv contrast (will be provided with radiology [...] No current facility-administered medications for this visit. PE: The patient is alert and oriented and is well appearing and in no apparent distress. Examination of the right crown of the scalp revealed an open wound with re-epithelialized skin edge along the border ( see photo) and exposed bone at the base. Bone is healthy without desiccation. A/P: Non-healing wound s/p Mohs and sutured wound dehiscence with exposed bone -skin was cleaned with alcohol, numbed with lidocaine and wound edges were debrided with a curette to remove re-epithelialized skin and promote new wound healing. Continue duoderm wound dressings. Return for wound check in 2 weeks. Yanet Cardoso RN I agree with the Chief Complaint, ROS, and Past Histories independently gathered by the clinical customer support professional, and the remaining scribed note accurately describes my personal service to the patient. Madelaine Bronson MD documented [facility] encounter[facility]06-[facility] Note[facility] History of Present illness Narrative* Lorin Zhang LPN - 09/10/2024 1:23 PM EDT Patient here for injection of Eligard. Given SQ in RLQ. Patient tolerated well. Pt returns for injection today, Wednesdays injection kit malfunction. She additional information from OV wit Dr Herring on 09/08/24 Lorin Zhang LPN documented in this encounterGreene [facility] Hospital06-04-2025 NoteC[facility]06-[facility] History of Present illness Narrative* Lorin Zhang LPN - 09/08/2024 11:11 AM EDT Eligard not given and will be rescheduled for tomorrow. While preparing the Eligard mixture, the mixture began to seep into the clip between the two syringes. Syringe inspected by pharmacist, will order a replacement. Aranesp given SQ in left arm, patient tolerated well. For all other information regarding today, see today's OV note with Dr Herring. documented in this encounterGreene [facility] Hospital06-04-2025 NoteC[facility]06-[facility] History of Present illness Narrative* Dereje Herring MD - 09/08/2024 10:30 AM EDT (Elements copied from my note dated August 11, 2024, have been reviewed and updated where appropriate, and all reflect current assessment and medical decision making from today's encounter, September 08, 2024) HISTORY OF PRESENT ILLNESS: Luther Castillo [...] CKD grade 3a RECOMMENDATION/PLAN: 1. Anemia, ?renal effect, aranesp for hgb less than 10 2. Continue zytiga pred 3. Lupron as scheduled 4. D/c danosumab as he's been on it 3 years Written and verbal health teaching given to [...] well nourished. I spent a total of 20 minutes on the date of the service which included preparing to see the patient, [id number] patient care, completing clinical documentation, obtaining and/or reviewing separately obtained history, counseling and educating the patient/family/caregiver, ordering medications, soha ts, or procedures, independently interpreting results (not separately reported), and communicating results to the patient/family/caregiver. Electronically Signed: Dereje Herring MD September 08, 2024 documented in this encounterGreene [facility]05-23-2025 NoteC[facility]05-16-2025 Telephone encounter Note* Telephone Encounter - Roseanna Moore RN - 08/20/2024 4:45 PM EDT Spoke to DENTAL INSURANCE COORDINATOR. Patient informed that diarrhea/flu-like symptoms are not [...] he changes his mind. Roseanna Moore RN [facility]05-16-2025 Miscellaneous Notes* Telephone Encounter - Roseanna Moore RN - 08/20/2024 4:45 PM EDT Spoke to DENTAL INSURANCE COORDINATOR. Patient informed that diarrhea/flu-like symptoms are not [...] mind. Roseanna Moore RN documented in this encounterGreene [facility]05-07-2025 NoteHNO ID: [id number] Author: LORIN ZHANG LPN Service: ? Author Type: LICENSED NURSE Type: Progress Notes Filed: 08/11/2024 09:48 Note Text: Xgeva and Aranesp injections held today per office visit with Dr Herring today. [facility] History of Present illness Narrative* Lorin Zhang LPN - 08/11/2024 9:41 AM EDT Xgeva and Aranesp injections held today per office visit with Dr Herring today. Lorin Zhang LPN documented in this encounterGreene Memorial Hospital05-07-2025 History of Present illness Narrative* Dereje Herring MD - 08/11/2024 9:21 AM EDT (Elements copied from my note dated January [...] which included preparing to see the patient, [id number] patient care, completing clinical documentation, obtaining and/or reviewing separately obtained history, counseling and educating the patient/family/caregiver, ordering medications, soha ts, or procedures, independently interpreting results (not separately reported), and communicating results to the patient/family/caregiver. Electronically Signed: Dereje Herring MD August 11, 2024 documented in this encounterGreene Memorial Hospital05-07-2025 NoteC[facility]05-05-2025 Instructions* Patient Instructions* Candace Guerra APRN.CNP - 08/09/2024 3:58 PM EDT PLAN AND RECOMMENDATIONS: Echocardiogram Bone broth Follow up 1 year CONTACT INFORMATION: Candace Guerra APRN.CNP Cardiology Nurse Practitioner Section of Regional Cardiology [facility] Dept of Cardiovascular Medicine [facility] [place] [address] [place] [address] Office Office documented in this encounterGreene Memorial Hospital05-05-2025 NoteC[facility]05-05-2025 History of Present illness Narrative* Candace Guerra APRN.CNP - 08/09/2024 3:30 PM EDT Images from the original note were not included. Heart [facility] V[facility] [place] [facility] Department of Cardiovascular Medicine SECTION OF CLINICAL CARDIOLOGY OUTPATIENT VISIT DATE August 09, 2024 OUTPATIENT VISIT TYPE ESTABLISHED PRIMARY CARE PHYSICIAN: Arsalan Ocampo [address] [place] [address] REFERRING PHYSICIAN: Dorcas Champagne [address] [place] [address] CHIEF COMPLAINT: Follow Up (DX: SOB, Chest [...] SURGICAL HISTORY Procedure Laterality Date APPENDECTOMY 02/05/2024 [facility] COLONOSCOPY 02/27/2022 COLONOSCOPY FLX DX W/COLLJ [...] up 1 year CONTACT INFORMATION: Candace Guerra APRN.JOI Cardiology Nurse Practitioner Section of Regional Cardiology [facility] Dept of Cardiovascular Medicine [facility] Heart [facility] [place] [address] Office Office This note was partially generated using [employer] voice recognition system and may contain errors related to that system including grammar, punctuation, spelling, and words that may be inappropriate documented in this encounterGreene Memorial Hospital04-09-2025 NoteC[facility]04-09-2025 History of Present illness Narrative* Lorin Zhang LPN - 07/14/2024 10:29 AM EDT Patient here for injection of Xgeva, given SQ in right arm. Pt denies any jaw or tooth pain. Also given Aranesp given SQ in left arm. Pt tolerated well. Lorin Zhang LPN documented in this encounterGreene Memorial Hospital04-02-2025 History of Present illness Narrative* Eliana Gayle RN - 07/07/2024 9:00 AM EDT PROCEDURE FOLLOW UP PATIENT ID CONFIRMED: YES [...] 06, 2024 11:12 AM documented in this encounterGreene Memorial Hospital04-02-2025 NoteC[facility]04-02-2025 Telephone encounter Note* Telephone Encounter - Suresh Hodges MD - 07/07/2024 8:21 AM EDT I called and let him know of my discussion with his surgeon, Dr. Bronson. Dr. Bronson confirmed andagreed that permanent section is more reliable reading regarding LVI and PNI. As permanent section is negative for LVI or PNI and final surgical margins were negative, I told the patient that radiation treatment is not indicated. I told him that he needs to have surveillance follow-ups with his patient access director and he told me that he will. [facility] Work Phone: [phone]) 353-859204-02-2025 Miscellaneous Notes* Telephone Encounter - Suresh Hodges MD - 07/07/2024 8:21 AM EDT I called and let him know of my discussion with his surgeon, Dr. Bronson. Dr. Bronson confirmed andagreed that permanent section is more reliable reading regarding LVI and PNI. As permanent section is negative for LVI or PNI and final surgical margins were negative, I told the patient that radiation treatment is not indicated. I told him that he needs to have surveillance follow-ups with his patient access director and he told me that he will. documented in this encounterGreene Memorial Hospital03-20-2025 NoteC[facility]03-20-2025 History of Present illness Narrative* Suresh Hodges MD - 06/24/2024 9:32 AM EDT Radiation Oncology - New Patient/Consult Note PATIENT [...] initially diagnosed in 2021 and is being treatedwith hormonal therapy. His most recent PSA on [...] had primary closure. 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 The maximum [...] SURGICAL HISTORY Procedure Laterality Date APPENDECTOMY 02/05/2024 [facility] COLONOSCOPY 02/27/2022 COLONOSCOPY FLX DX W/COLLJ [...] time of Mohs surgery but on permanent section,there was no perineural invasion nor lymphovascular space invasion. I will discuss with Dr. Bronson about findings of permanent section. Thank you very much for allowing us to participate in his care. Signed by: Suresh Hodges MD cc: Arsalan Ocampo [address] [place] [address] Madelaine Bronson [address] [facility] [address] * Mercedez Maldonado RN - 06/24/2024 9:17 AM EDT Radiation Therapy - Nursing Note (Consult) PATIENT NAME: Luther Castillo PATIENT June 24, 2024 [facility] FACILITY/LOCATION: [place] Chief Complaint: consult Reason for visit: Consult. Referring physician: Internal provider Dr Prieto Subjective Data: see pain assessment Additional Data Do you want to see a Pocket Setter? No Are you interested in information about fertility? No Status: Patient is male Stress Scale: On a scale of 0 to 10, what number best describes how much distress you have experienced in the past week?(0 being no distress and 10 being extreme distress) 2 Social work notified: no SIGNED by: Mercedez Maldonado, RN documented in this encounterGreene Memorial Hospital03-20-2025 NoteC[facility]03-13-2025 Telephone encounter Note* Telephone Encounter - Chelsea Copeland - 06/17/2024 4:58 PM EDT Patient returned call and scheduled 06/24 Chelsea Copeland [facility]03-13-2025 Miscellaneous Notes* Telephone Encounter - Chelsea Copeland - 06/17/2024 4:58 PM EDT Patient returned call and scheduled 06/24 Chelsea Copeland * Telephone Encounter - Gabi Reyna - 06/17/2024 2:28 PM EDT 1st attempt. Message left for patient to contact office to schedule consult with Dr. Hodges. 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 Deysi Valdivia in [place] documented in this encounterGreene Memorial Hospital03-13-2025 Telephone encounter Note * Telephone Encounter - Gabi Reyna - 06/17/2024 2:28 PM EDT 1st attempt. Message left for patient to contact office to schedule consult with Dr. Hodges. 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 Deysi Valdivia [place] [facility] Work Phone: [phone] Instructions* Patient Instructions* Yanet Cardoso RN - 06/17/2024 11:18 AM EDT SURGICAL WOUND CARE 1. Keep the wound dry and covered for the first -48------ hours. 2. It may be advised to sleep with your head elevated on 1 to 2 pillows to decrease Swelling and applying an ice pack to surgical site and surrounding area for 10- 15 minutes every 2 hours. 3. Remove the bandage on ___Friday afternoon after wetting the dressing for gentler removal of the tape . 4. Cleanse over the stitches with a mild soap and water, rinse off and pat dry The goal is to remove any dried blood, scabs, or crust that may have formed over the stitches. You should be able to seeall the stitches clearly. 5. Apply a thin [...] edges during healing. Some seepage is normal, however,if pain, swelling, or yellow drainage appears please call us at [phone] ext [phone] or [phone]. 10. Do not take any Aspirin, Advil, Motrin, Aspirin containing products, Vitamin E, or garlic pills for 3 days after surgery. Also, do not drink or smoke for 3 days after surgery. YOUMAY TAKE TYLENOL FOR PAIN. No strenuous activity until the stitches are removed. PAIN: What pain can I expect after surgery? You can expect to have some pain after surgery. This is normal. The pain is typically worse for a day or two after surgery, and quickly begins to get better. Most patients are able to manage their pain after surgery with Ybht-dyp-Btcesyi (OTC) medications such as Tylenol (acetaminophen) and Motrin/A dvil (ibuprofen). If you have a condition that [...] days after surgery to help reduce your painand swelling. After the first two days, you may use a heating pad or warm compress on your incisions and surrounding area. If you have received a graft, please *DO NOT* apply ice directly onto the graft site. How will I alternate my regular strength hdxh-yiy-bztetie pain medication? You will take a dose [...] We recommend that you follow this schedule jtwwjr-urv-oheim for at least 3 days after surgery, [...] of the acetaminophen you take into toxic byproducts.Alcohol also acts as a blood thinner and [...] MOHS SURGERY, you should see your referring patient access director for a routine skin check every 6 months or on a schedule dictated by your patient access director. IN CASE OF BLEEDING In case of [...] prescription. You do not have to use exactlythe same type of dressing that was applied after surgery. Mild soap and water Cotton-tipped swab (Q-tip) Vaseline, Aquaphor, or a recommended antibiotic ointment. Dressing: Bandages, Telfa or other non-stick pads, gauze, Ronnie, tape, etc. (depending on the wound size and shape) PLEASE REMEMBER If you have any questions or concerns, please call the Dermatology Surgery Department to speak to aNurse at [phone] ext [phone] or [phone] After 5pm, or on weekends and holidays, and ask for the dermatology surgery fellow coupon redemption clerk documented in this encounterGreene Memorial Hospital03-13-2025 History of Present illness Narrative* Madelaine Bronson MD - 06/17/2024 9:00 AM EDT MOHS MICROGRAPHIC OPERATIVE REPORT SERVICE DATE: 06/17/2024 SERVICE TIME: 8:50 AM LOCATION: [place]:[facility],[id number] REFERRING PROVIDER: Richie Dejesus ([facility]) [address] [place] [address] PROCEDURE START TIME: 858 am PROCEDURE END [...] in the EMR. Patient used mirror(s) to identifysite(s). Patient verbalized agreement of surgical site(s). Site(s) [...] at Bedside: Inside pathology report # [id number], Date of Biopsy: 05/04/2024, and Biopsy Performed By: Dr. Dejesus Pre-op Size: Greater than 2 cm, (2.3cm X 1.8cm) Lymphadenopathy: None Indication for Mohs: Anatomic Location where lesion is prone to recur, Type of tumor, Rapid growth,Size, Patient is immunosuppressed, and Ill-defined borders Location: [...] the dermis is noted. In areas the tumoris keratin producing and in other areas the tumor is less well differentiated. Non- marginal tissue sent for permanence to r/o PNI, LVI. Suspicious for intravascular involvement LAYER B A 1-2 mm rim of tissue was marked to encompass the positive margins noted in the frozen section. The area thus outlined was excised deep to the galea. Hemostasis was achieved with electrocautery. Thespecimen was oriented, subdivided into 1 sections, chromacoded [...] second intention healing, the wound was closed witha primary linear closure. Diagnosis: Surgical defect secondary to Mohs micrographic surgery on a Primary tumor type from the right crown scalp (location of tumor). Post-op Defect Size: 2.3 x 1.8cm COMPLEX CLOSURE: Requiring skin and subcutaneous fat and retention sutures. The beveled edge of theMohs defect was surgically removed. The wound edges [...] for non-ocular SCC of head and neck. [facility] Risk Factors: tumor diameter greater than or equal to 2 cm (depth of tumor noted to be at subcutaneous fat) Final stage T2a - 1 high-risk factor. Based on the [facility] guidelines. LOCAL ANESTHETIC: 4cc 1% Lidocaine HCl with Epinephrine 1:100,000 ESTIMATED BLOOD LOSS: Less Than Minimal Unless Noted Here. COMPLICATIONS: None, patient tolerated procedure well. TOTAL OPERATIVE TIME: 135 Minutes POST OP MEDS: Tylenol 1000 mg every 8 hours as needed for pain relief POST OP CARE: Pressure Dressing applied consisting of Contact Layer: Petrolatum ointment, Non stickTelfa pad, and Skin Prep Absorbent Layer: Gauze pad Outer Layer: Hypafix MOHS POST OP INSTRUCTIONS GIVEN WITH VERBAL UNDERSTANDING: Yes PATIENT DISCHARGED TO ANIMAL SCIENTIST/NAME: spouse, Luz FOLLOW UP: Return for suture removal in 3 weeks Pt was also referred to Radiation/ Oncology for consult for possible radiation to field due to high suspicion for vascular invasion seen on Mohs slides. Mohs blocks sent for permanent pathology to assess for LVI/PNI. Patient will be seen in [place] by Dr. Hodges for radiation consultation. The [...] independently gathered by the clinical customer support professional and Fellow and the remaining scribed note accurately describes my personal service to the patient. Madelaine Bronson MD documented in this encounterGreene Memorial Hospital03-13-2025 NoteC[facility]03-12-2025 NoteC[facility]03-12-2025 History of Present illness Narrative* Lorin Zhang LPN - 06/16/2024 10:56 AM EDT Patient here for injection of Aranesp given SQ in left arm and Xgeva given SQ in right arm. Patienttolerated well. Lorin Zhang LPN documented in this encounterGreene Memorial Hospital02-11-2025 Telephone encounter Note * Telephone Encounter - Lorin Zhang LPN - 05/18/2024 11:29 AM EST Refill req received for Prednisone. Next OV here 08/11/24 Lorin Zhang LPN [facility]02-11-2025 Miscellaneous Notes* Telephone Encounter - Lorin Zhang LPN - 05/18/2024 11:29 AM EST Refill req received for Prednisone. Next OV here 08/11/24 Lorin Zhang LPN documented in this encounterGreene Memorial Hospital02-06-2025 Telephone encounter Note * Telephone Encounter - Abigail Ferrer LPN - 05/13/2024 7:50 AM EST Prescription Refill Information The patient has been [...] Ferrer LPN May 13, 2024 7:54 AM [facility]02-06-2025 Miscellaneous Notes* Telephone Encounter - Abigail Ferrer LPN - 05/13/2024 7:50 AM EST Prescription Refill Information The patient has been [...] 13, 2024 7:54 AM documented in this encounterGreene Memorial Hospital02-05-2025 NoteC[facility]02-05-2025 History of Present illness Narrative* Lorin Zhang LPN - 05/12/2024 10:09 AM EST Patient here for injection of Xgeva and Aranesp. Given SQ in left and right arm, respectively. Patient tolerated well. Lorin Zhang LPN documented in this encounterGreene Memorial Hospital02-05-2025 NoteHNO ID: [id number] Author: ENDY CURRAN, PT Service: ? Author Type: Physical Therapist Type: Progress Notes Filed: 05/12/2024 09:44 Note Text: 05/12/2024 [facility] PHYSICAL THERAPY DISCONTINUANCE [...] for exercise recently along the [place] in [facility]) Patient Goals: To decrease lower back and L hip pain (Improving) Based on the most recent progress report, patient was progressing as expected toward functional goals based on home exercise program compliance, pain levels, and documented subjective information on progress. Reason for Discontinuation of Care: Patient has not returned to therapy or scheduled additional follow-up appointments.Patient was to see Dr. Bashir Mcmahon on 05/10/2024 and canceled that appointment over Practice Ignition[employer]. Plan of Care is completed. Endy Curran, PT, [facility]01-28-2025 Instructions* Patient Instructions* Richie Dejesus MD - 05/04/2024 11:40 AM [...] Vaseline for the next few days or untilcompletely healed (could take 2-3 weeks depending on the size of the biopsy site). 5.) DO NOT USE NEOSPORIN as there is a fairly high incidence of allergic response to this product.. documented in this encounterGreene Memorial Hospital01-28-2025 History of Present illness Narrative* Richie Dejesus MD - 05/04/2024 11:30 AM EST Shave biopsy of lesion to establish and [...] Dejesus MD RTC ppath documented in this encounterGreene Memorial Hospital01-28-2025 NoteC[facility]01-08-2025 Telephone encounter Note* Telephone Encounter - Graciela Khan - 04/14/2024 2:42 PM EST Per appt desk, Patient is rescheduled for 05/10/2024 Graciela Khan [facility]01-08-2025 Miscellaneous Notes* Telephone Encounter - Graciela Khan - 04/14/2024 2:42 PM EST Per appt desk, Patient is rescheduled for 05/10/2024 Graciela Khan * Telephone Encounter - Graciela Khan - 04/05/2024 2:32 PM EST Due to a change in Dr. Mcmahon's schedule, Patient's appt on 04/28/2024 has been cancelled. Called Patient-no answer. Left voicemail requesting Patient call the Anesthesia [facility] to reschedule. Patient also notified of cancellation via [employer] message. Graciela Khan documented in this encounterGreene Memorial Hospital01-08-2025 NoteC[facility]01-08-2025 History of Present illness Narrative* Abigail Ferrer LPN - 04/14/2024 10:15 AM EST Patient presents with: Imm/Inj Pt is identified [...] noted. Abigail Ferrer LPN documented in this encounterGreene Memorial Hospital12-30-2024 Telephone encounter Note * Telephone Encounter - Graciela Khan - 04/05/2024 2:32 PM EST Due to a change in Dr. Mcmahon's schedule, Patient's appt on 04/28/2024 has been cancelled. Called Patient-no answer. Left voicemail requesting Patient call the Anesthesia [facility] to reschedule. Patient also notified of cancellation via [employer] message. Graciela Bill [facility]12-26-2024 NoteHNO ID: [id number] Author: ENDY CURRAN PT Service: ? Author [...] in billed treatment time. Endy Curran PT, [facility]12[facility]26[facility] History of Present illness Narrative* Endy Curran PT - 04/01/2024 2:17 PM EST Episode Visit Count: 12 Therapist That Will [...] the L groin at 1-2 out of 10and that his lower back feels good today. [...] Endy Curran PT, DERRICK documented in this encounterGreene Memorial Hospital12-24-2024 Telephone encounter Note * Telephone Encounter - Abigail Ferrer LPN - 03/30/2024 11:52 AM EST Prescription Refill Information The patient has been [...] Ferrer LPN March 30, 2024 11:52 AM [facility]12-24-2024 Miscellaneous Notes* Telephone Encounter - Abigail Ferrer LPN - 03/30/2024 11:52 AM EST Prescription Refill Information The patient has been [...] 30, 2024 11:52 AM documented in this encounterGreene Memorial Hospital12-18-2024 NoteHNO ID: [id number] Author: ENDY CURRAN PT Service: ? Author [...] for exercise recently along the [place] in [facility]) Patient Goals: To decrease lower back and L hip pain (Improving) Time Frame for Goals and Treatment : 05/07/24 Planned Interventions, Frequency, and Duration: 2x/week, 5 weeks Total Number of Visits Planned: 10 Patient to be seen for Therapeutic exercise (93167), Manual therapy (48388), Therapeutic activities (66752), Self-long-term management (93236), Patient/Family/Caregiver Education, Body Mechanics Training PLAN FOR [...] have a Pain Management appointment with Dr. Bashir Mcmahon on 04/28/2024. He feels that he [...] percentile is the avera (more content not included)...[facility]12-18-2024 History of Present illness Narrative * Endy Curran, PT - 03/24/2024 2:13 PM EST Images from the original note were not [...] low back ROM and lumbar stabilization and LEstrengthening exercises to return patient to prior level [...] to minimal to moderate limitation overall to allowpt to improve performance of ADLs. (Improving) Patient [...] for exercise recently along the [place] in [facility]) Patient Goals: To decrease lower back and L hip pain (Improving) Time Frame for Goals and Treatment : 05/07/24 Planned Interventions, Frequency, and Duration: 2x/week, 5 weeks Total Number of Visits Planned: 10 Patient to be seen for Therapeutic exercise (72466), Manual therapy (91425), Therapeutic activities(60516), Self-long-term management (57921), Patient/Family/Caregiver Education, Body Mechanics Training PLAN FOR [...] have a Pain Management appointment with Dr. Bashir Mcmahon on 04/28/2024. He feels that he [...] AROM, bilateral LE flexibility, trunk, abdominal and bilateralLE strength testing. Billing Therapeutic Exercise Treatment Minutes: 60 Skilled Treatment Time Minutes (timed and untimed codes): 60 Total Session Time (minutes): 76 Session Start Time : 1417 Session Stop Time : 1533 Time spent on Recumbent Stepper not included in billed treatment time. Endy Curran PT, DERRICK documented in this encounterGreene Memorial Hospital12-13-2024 Instructions* Patient Instructions* Richie Dejesus MD - 03/19/2024 11:22 AM EST AFTERCARE CRYOTHERAPY The skin s response to cryosurgery (freezing) can be mild to more severe, depending on the depth ofthe freeze and location of the area treated. [...] Pat dry and apply a thin film ofvaseline. Do this at least once a day [...] 3 to 4 weeks. documented in this encounterGreene Memorial Hospital12-13-2024 History of Present illness Narrative* Richie Dejesus MD - 03/19/2024 10:45 AM EST Patient presents with: Actinic Keratosis Cryosurgery of non-malignant lesion(s) HPI: Patient is here for cryosurgery Patient is alert oriented 3 not in apparent distress Luther Castillo Medical Record: [id number] Date: 03/19/2024 Procedure: Cryosurgery The risks, benefits [...] MD RTC 4 months documented in this encounterGreene Memorial Hospital12-13-2024 NoteC[facility]12-11-2024 NoteC[facility]12-11-2024 History of Present illness Narrative* Lorin Zhang LPN - 03/17/2024 9:45 AM EST Patient here today for injections. xgeva (denies jaw pain, tooth pain) given SQ in Rt arm, eligard given SQ in LLQ and aranesp given SQ in left arm. Pt tolerated well Lorin Zhang LPN documented in this encounterGreene Memorial Hospital12-10-2024 NoteHNO ID: [id number] Author: JULIANO MAGAÑA PT Service: ? Author [...] 1400 Session Stop Time : 1455 Juliano Magaña, PT, [facility]12-10-2024 History of Present illness Narrative* Juliano Magaña, PT - 03/16/2024 2:01 PM EST Episode Visit Count: 10 Therapist That Will [...] Juliano Magaña PT, DPT documented in this encounterGreene Memorial Hospital12-09-2024 Telephone encounter Note * Telephone Encounter - Lilibeth Stanton RN - 03/15/2024 11:42 AM EST The patient has been identified by name [...] with this provider/department: Pt was just seen 03/10/24and per that OV note, pt is to return in 1 year. No appt scheduled at this time. Requested Prescriptions Pending Prescriptions Disp Refills atorvastatin (LIPITOR) 20 mg tablet 90 tablet 3 Sig: Take 1 tablet by mouth daily at bedtime. For cholesterol. Lilibeth Stanton RN March 15, 2024 11:43 AM [facility]12-09-2024 Miscellaneous Notes* Telephone Encounter - Lilibeth Stanton RN - 03/15/2024 11:42 AM EST The patient has been identified by name [...] with this provider/department: Pt was just seen 03/10/24and per that OV note, pt is to return in 1 year. No appt scheduled at this time. Requested Prescriptions Pending Prescriptions Disp Refills atorvastatin (LIPITOR) 20 mg tablet 90 tablet 3 Sig: Take 1 tablet by mouth daily at bedtime. For cholesterol. Lilibeth Stanton RN March 15, 2024 11:43 AM documented in this encounterGreene Memorial Hospital12-04-2024 NoteC[facility]12-04-2024 History of Present illness Narrative* PodCatherine khan APRN.RANGE SCIENTIST - 03/10/2024 9:05 AM EST Images from the original note were not [...] as PCP - General (Family Medicine) Natalya Dorsey, ERIN as Specialty Retail Maintenance Technician (Hematology/Oncology) Dereje Herring MD (Hematology/Oncology) Outside specialists [...] ICD10: Z13.31 - DEPRESSION SCREENING Catherine Peraza APRN.JOI Prescription instructions reviewed with patient as applicable. Patient advised if symptoms do not improve or if symptoms worsen sooner, to contact their primary care physician. Potential red flag symptoms discussed with the patient. Reviewed appropriate action plan to take if red flag symptoms occur. Patient agreeable to treatment plan. documented in this encounterGreene Memorial Hospital12-03-2024 NoteHNO ID: [id number] Author: JOSE DAVID CEDENO PTA Service: ? Author Type: Robotics Technician Type: Progress Notes Filed: 03/09/2024 16:02 Note [...] not included in billed treatment time. Jose aDvid [facility]Ad[facility] History of Present illness Narrative* Jose David Cedeno, [facility] - 03/09/2024 2:49 PM EST Episode Visit Count: 9 Therapist That Will [...] Jose David Cedeno PTA documented in this encounterGreene Memorial Hospital11-26-2024 NoteHNO ID: [id number] Author: JULIANO MAGAÑA PT Service: ? Author [...] Stop Time : 1550 Juliano Magaña PT, [facility]11-26-2024 History of Present illness Narrative* Juliano Magaña PT - 03/02/2024 2:48 PM EST Episode Visit Count: 8 Therapist That Will [...] Juliano Magaña PT, DPT documented in this encounterGreene Memorial Hospital11-22-2024 NoteHNO ID: [id number] Author: ROSEANNA HUGHES PTA Service: ? Author Type: Robotics Technician Type: Progress Notes Filed: 02/27/2024 13:39 Note [...] Session Stop Time : 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 [facility]11-22-2024 History of Present illness Narrative* 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, PRESS SUPERVISOR - 02/27/2024 11:38 AM EST Episode Visit Count: 7 Therapist That Will [...] will continue to benefit from ongoing skilled ph ysical therapy to progress toward set goals. PLAN FOR NEXT VISIT: Progress shuttle and add recumbent stepper SUBJECTIVE: Patient reported that he was able to stand for a longer period last night and cook somewithout back pain. He reported that his groin pain continues and would rate at 8/10 this a.m. with walking and standing. He reported that he awaiting a call back from his doctor's office as he calledabout a referral to pain management. Pain: Pain [...] 1240 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 PTA documented in this encounterGreene Memorial Hospital11-20-2024 Telephone encounter Note * Telephone Encounter - Sariah Amaro - 02/25/2024 1:24 PM EST Patient calling in to see if Dr. Roach wanted him to see Dr. Mcmahon in [place]. Patient mentioned that it was brought up at his appt with Doc and he has not heard anything yet. Please review and advise. Sariah Amaro February 25, 2024 1:25 PM [facility]11-20-2024 Miscellaneous Notes* Telephone Encounter - Sariah Amaro - 02/25/2024 1:24 PM EST Patient calling in to see if Dr. Roach wanted him to see Dr. Mcmahon in [place]. Patient mentioned that it was brought up at his appt with Doc and he has not heard anything yet. Please review and advise. Sariah Amaro February 25, 2024 1:25 PM documented in this encounterGreene Memorial Hospital11-20-2024 NoteHNO ID: [id number] Author: ENDY CURRAN PT Service: ? Author [...] Roach and was recommended to see Dr. Bashir Mcmahon in Pain Management for possible lower [...] Patient to be seen for Therapeutic exercise (74262), Manual therapy (65969), Therapeutic activities (05707), Self-long-term management (17144), Patient/Family/Caregiver Education, Body Mechanics Training PLAN FOR NEXT VISIT: August trial shuttle next session as tolerated and add light resistance with PREs. SUBJECTIVE: Patient saw Dr. Roach on 02/23/2024 and he wants to refer him to Dr. Bashir Mcmahon, Pain Management, as he feels that [...] noted that he (more content not included)... [facility]11-20-2024 History of Present illness Narrative* Endy Curran PT - 02/25/2024 11:06 AM EST Images from the original note were not [...] difficulty reaching behind the L side with sh owering.) . Current prognosis is Good due to: current objective clinical presentation, good overallhealth status, good support system/ coping skills, Prognosis may be limited due to chronic nature of impairments . Patient returned to Dr. Roach and was recommended to see Dr. Bashir Mcmahon in Pain Management for possible lower [...] low back ROM and lumbar stabilization and LEstrengthening exercises to return patient to prior level [...] to minimal to moderate limitation overall to allowpt to improve performance of ADLs. (Ongoing. No [...] Patient to be seen for Therapeutic exercise (67251), Manual therapy (83091), Therapeutic activities(58145), Self-long-term management (56520), Patient/Family/Caregiver Education, Body Mechanics Training PLAN FOR NEXT VISIT: August trial shuttle next session as tolerated and add light resistance with PREs. SUBJECTIVE: Patient saw Dr. Roach on 02/23/2024 and he wants to refer him to Dr. Bashir Mcmahon, Pain Management, as he feels that [...] therapy, but after he is on his feetthat his pain level returns PROMIS Scales 02/24/2024 [...] Stop Time : 1217 Endy Curran PT, DERRICK documented in this encounterGreene Memorial Hospital11-18-2024 NoteC[facility]11-18-2024 History of Present illness Narrative* Vicente Roach MD - 02/23/2024 4:27 PM EST Vicente Roach MD Department of Orthopaedics Orthopaedics [address] [place] [id number] Dept: [phone] Dept February 23, 2024 CHIEF COMPLAINT: New and Pain of the Left Hip and Referred by Dr. Herring (Last seen 01/06/17 biceps tendinitis ) HPI Patient here for evaluation left hip pain. Patient is having pain in his back at his belt level andcan radiate down into his groin. He has to grab and lift his leg to get out of the car. X-rays doneon 12/24/23. Patient has history of prostate cancer. [...] hip only has very minimal and none reproduciblesymptoms. IMAGING: Impression IMPRESSION: 1. Known sclerotic osseous lesions 2. Degenerative changes Tool And Die Supervisor: APRIL Transcribe Date/Time: Dec 27 2023 8:22A Dictated [...] SURGICAL HISTORY Procedure Laterality Date APPENDECTOMY 02/05/2024 [facility] COLONOSCOPY 02/27/2022 COLONOSCOPY FLX DX W/COLLJ [...] two times a day as needed for musclespasm. (Patient not taking: Reported on 02/23/2024) darbepoetin [...] requesting physician via US mail. Dereje Herring [id number] [facility] [id number] Arsalan Ocampo MD [address] [facility] [id number] Vicente Roach MD documented in this encounterGreene [facility]11-15-2024 NoteHNO ID: [id number] Author: JOSE DAVID CEDENO PTA Service: ? Author Type: Robotics Technician Type: Progress Notes Filed: 02/20/2024 13:36 Note [...] Session Stop Time : 1232 [facility] History of Present illness Narrative* Jose David Cedeno, [facility] - 02/20/2024 11:43 AM EST Episode Visit Count: 5 Therapist That Will [...] Jose David Cedeno PTA documented in this encounterGreene Memorial Hospital11-13-2024 NoteHNO ID: [id number] Author: ROSEANNA HUGHES PTA Service: ? Author Type: Robotics Technician Type: Progress Notes Filed: 02/18/2024 14:13 Note [...] Session Stop Time : 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 [facility]11-13-2024 History of Present illness Narrative* 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, [facility] - 02/18/2024 1:18 PM EST Episode Visit Count: 4 Therapist That Will [...] 1400 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 PTA documented in this encounterGreene Memorial Hospital11-13-2024 Nurse Note* Lorin Zhang LPN - 02/18/2024 9:40 AM EST Pt here for injection of Xgeva given SQ in the right arm and Aranesp given sq in left arm. Pt tolerated well. [facility]11-13-2024 Nurse Note* Lorin Zhang LPN - 02/18/2024 9:40 AM EST Pt here for injection of Xgeva given SQ in the right arm and Aranesp given sq in left arm. Pt tolerated well. documented in this encounterGreene Memorial Hospital11-08-2024 NoteHNO ID: [id number] Author: ROSEANNA HUGHES PTA Service: ? Author Type: Robotics Technician Type: Progress Notes Filed: 02/13/2024 13:24 Note [...] 1145 Session Stop Time : 1235 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 History of Present illness Narrative* 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, [facility] - 02/13/2024 11:51 AM EST Episode Visit Count: 3 Therapist That Will [...] session with no issues. He demonstrated improvement withreps of exercises as tolerated. Patient did report [...] he was unable to go in and standas his pain with standing would be at [...] 1235 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 PTA documented in this encounterGreene Memorial Hospital11-06-2024 History of Present illness Narrative* 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 PTA - 02/11/2024 11:40 AM EST Program_ID:[id number] Access Code: [email or web address] URL: [email or web address] Date: 02-11-2024 Prepared By: ENDY CURRAN Program [...] weekly - 3 sets - 10 reps * 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 PTA - 02/11/2024 11:12 AM EST Episode Visit Count: 2 Therapist That Will [...] He reported that he tried the exercises butthey increased his discomfort. Pain: Pain Pain Level: [...] Home Exercise Program Assigned: 1: Access Code: [email or web address] URL: [email or web address] Date: 02/11/2024 Prepared by: ROSEANNA HUGHES Exercises [...] 1144 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 PTA documented in this encounterGreene Memorial Hospital11-06-2024 NoteHNO ID: [id number] Author: ROSEANNA HUGHES PTA Service: ? Author Type: Robotics Technician Type: Progress Notes Filed: 02/11/2024 12:14 Note [...] Home Exercise Program Assigned: 1: Access Code: [email or web address] URL: [email or web address] Date: 02/11/2024 Prepared by: ROSEANNA HUGHES Exercises [...] 1104 Session Stop Time : 1144 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 Telephone encounter Note* Telephone Encounter - Abigail Ferrer LPN - 02/10/2024 7:32 AM EST Prescription Refill Information The patient has been [...] Ferrer LPN February 10, 2024 7:35 AM [facility]11-05-2024 Miscellaneous Notes* Telephone Encounter - Abigail Ferrer LPN - 02/10/2024 7:32 AM EST Prescription Refill Information The patient has been [...] 10, 2024 7:35 AM documented in this encounterGreene Memorial Hospital11-01-2024 [facility] Medical Records Department [address] [place] [address] Discharge Summary 02/06/24 0943 MR#: [id number] Acct: [id number] Name: LUTHER CASTILLO II Rep #: [id number] : 1955 68 From: Rohit Crawford MD PCP: Dr. López Ocampo MD Status:DIS CARLENE Location: [place] [address] Providers Date of Admission: 02/05/24 Primary Care [...] the plan. It has been discussed that post- operatively the patient may need to be admitted [...] a pre-clinic level when he arrived for short- term follow-up with me as an outpatient. I den (more content not included)...[facility]10-31-2024 Telephone encounter Note* Telephone Encounter - Grace Julio MA - 02/05/2024 2:04 PM EDT Images from the original note were not included. TATE approved and patient was notified via voicemail Grace Julio MA [facility]10-31-2024 Miscellaneous Notes* Telephone Encounter - Grace Julio MA - 02/05/2024 2:04 PM EDT Images from the original note were not included. TATE approved and patient was notified via voicemail Grace Julio MA * Telephone Encounter - Grace Julio MA - 02/05/2024 12:08 PM EDT [facility] Chen: [id number] Grace Julio MA documented in this encounterGreene Memorial Hospital10-31-2024 [facility] Medical Records Department [address] [place] [address] History Physical Exam 02/05/24 1352 MR#: [id number] Acct: [id number] Name: LUTHER CASTILLO II Rep #: [id number] : 1955 68 From: Derrek YBARRA PA-C PCP: Dr. López Ocampo MD [place] [place] [facility] AC-TBA-1 HPI - General General Date [...] He notes he follows with oncology from [facility]. He denies being on any active [...] Temperature Source Oral Puls (more content not included)...[facility]10-31-2024 Telephone encounter Note* Telephone Encounter - Grace Julio MA - 02/05/2024 12:08 PM EDT Submitted PA [facility] for cyclobenzaprine Chen: [id number] Garce Julio MA [facility]10-29-2024 Telephone encounter Note* Telephone Encounter - Sienna Avila LPN - 02/03/2024 3:19 PM EDT Phoned patient and reviewed results with him. Patient voiced understanding. Sienna Avila LPN [facility]10-29-2024 Miscellaneous Notes* Telephone Encounter - Sienna Avila LPN - 02/03/2024 3:19 PM EDT Phoned patient and reviewed results with him. Patient voiced understanding. Sienna Avila LPN * Telephone Encounter - Sienna Avila LPN - 02/03/2024 3:18 PM EDT ----- Message from Arsalan Ocampo MD sent at 02/03/2024 3:09 PM EDT ----- Normal scrotal US aside from 1 mm right testicular calcification which is benign. No abnormalities in left groin. documented in this encounterGreene Memorial Hospital10-29-2024 Telephone encounter Note * Telephone Encounter - Sienna Avila LPN - 02/03/2024 3:18 PM EDT ----- Message from Arsalan Ocampo MD sent at 02/03/2024 3:09 PM EDT ----- Normal scrotal US aside from 1 mm right testicular calcification which is benign. No abnormalities in left groin. [facility]10-29-2024 History of Present illness Narrative* Jazzmine Gillette RT(R) - 02/03/2024 2:30 PM EDT Radiology Service Progress Note PATIENT NAME: Luther Castillo DATE OF SERVICE: February 03, 2024 TIME: 2:56 PM PATIENT IDENTITY VERIFICATION COMPLETED USING TWO (2) IDENTIFIERS: Name and Date of confirmedby patient verbally. FALL SCREENING: Has the patient had 2 falls in the last year or 1 fall with injury or currently using an Ambulatory Assistive Device (Walker, Cane, Wheelchair, Crutches, etc.)? No PATIENT GENDER DATA: Male PATIENT RELEVANT IMPLANT DATA REVIEWED: Not Applicable PATIENT PRESENTS WITH AN IMPLANTABLE OR ATTACHED FLEET MANAGER/DISPATCH: No RADIOLOGY DEPARTMENT: Ultrasound PERIPHERAL IV DATA: Not applicable SIGNED BY: Jazzmine Gillette Rdms February 03, 2024 2:56 PM documented in this encounterGreene Memorial Hospital10-29-2024 NoteC[facility]10-29-2024 Instructions* Patient Instructions* Sienna Avila LPN - 02/03/2024 10:19 AM [...] review all the medicines you take, even tise-xiv-hqnmbyz medicines. As you get older, the way medicines work in your body can change. Some medicines, or combinations of medicines, can make you sleepy or dizzy andcan cause you to fall. 3. Have your [...] have certain medical conditions. documented in this encounterGreene Memorial Hospital10-29-2024 NoteCleveland [facility]10-29-2024 History of Present illness Narrative* Arsalan Ocampo MD - 02/03/2024 10:14 AM EDT Chief Complaint Patient presents with: Groin Pain [...] melena, new urinary symptoms. Evaluated by Catherine Podlogluba 1 month ago for left hip pain and was referred to PT. Patient just started last week without improvement thus far. Has appointment with Dr. Roach next month for this as well. Patient also notes that he was evaluated at [facility] ED on 12/18 for possible appendicitis [...] discussed with the Patient or Patient's Authorized Timber Supervisor. Asapplicable, any other physician, advance practice provider, medical student, or other health professional student that will be observing or involved in the sensitive examination for educational or training purposes was discussed with the Patient or Authorized Timber Supervisor. The Patient or Authorized Timber Supervisor has agreed to proceed with the sensitive [...] Lymph 1.00 - 4.00 k/uL 1.79 2.37 Bullock% % 6.1 6.5 Abs Bullock <0.87 k/uL 0.27 0.40 Eosin% % 5.2 [...] above. Arsalan Ocampo MD documented in this encounterGreene Memorial Hospital10-24-2024 History of Present illness Narrative* Endy Curran PT - 01/29/2024 10:39 AM EDT Program_ID:[id number] Access Code: [email or web address] URL: [email or web address]/ Date: 01-29-2024 Prepared By: ENDY CURRAN Program [...] weekly - 1 sets - 5 reps * Endy Curran PT - 01/29/2024 9:19 AM EDT Episode Visit Count: 1 Therapist That Will [...] Mild difficulty shifting L LE for bed mobilitytasks.) . The patient presents with impairments in ADL's, independence in exercise, overall function, patient reported outcome measures, posture, range of motion, strength, and symptom management. PROMIS (Patient- Reported Outcomes Measurement Information System) scores were reviewed and identified as a rehabilitation concern. Prognosis for therapy is Good due to: current objective clinical presentation, good overall health status, good support system/ coping skills, Prognosis may be limited dueto chronic nature of impairments . Patient presents [...] low back ROM and lumbar stabilization and LEstrengthening exercises to return patient to prior level of function and reduce L hip pain. Patient will decrease lower back and L LE radicular pain to 0-3/10 at rest and with functional activities to allow patient to improve ambulation, transfers, and standing tolerance for ADLs. Patient will increase active ROM of lumbar spine to minimal to moderate limitation overall to allowpt to improve performance of ADLs. Patient will [...] Planned: 12 Planned Treatment Interventions: Therapeutic exercise (40965), Manual therapy (22914), Therapeutic activities (55887), Self-long-term management (20276), Patient/Family/Caregiver Education, Body Mechanics Training PLAN FOR [...] about 8 months duration with recent flare upsince about October 2023. It was initially intermittent dull ache along the L side belt line that kepthim from walking for exercise and had difficulty with bednign over to shower or doing overhead tasks. This L hip pain is now constant in nature and is dull and aching. He saw Catherine Peraza, DORIS, JOI and since that time he has had a terrible, cutting pain in the L groin. He will see Dr. Ocampo, his PCP, next week. He has been taking Ibuprofen and Tylenol, which may help a little during the day.He also had remote history of lower back GIOVANNY. He states that he has prostate CA and was referred toDr. Vicente Roach. He did have recent L [...] Conditions Comments: Prior R shoulder arthroscopy in 2017, bilateral carpal tunnel repairs in 2002 Intake [...] Program Assigned: Current Home Program: Access Code: [email or web address] URL: [email or web address] Date: 01/29/2024 Prepared by: ENDY CURRAN Exercises - Supine Posterior Pelvic Tilt - 2 x daily - 7 x weekly - 1-2 sets - 10 reps - Posterior Pelvic Tilt with Adduction Using Pillow in Hooklying - 2 x daily - 7 x weekly - 1-2 sets - 10 reps - Hooklying Clamshell with Resistance - 2 x daily - 7 x weekly -1-2 sets - 10 reps - Supine Double [...] Endy Curran PT, MBA documented in this encounterGreene Memorial Hospital10-24-2024 NoteHNO ID: [id number] Author: ENDY CURRAN PT Service: ? Author [...] Planned: 12 Planned Treatment Interventions: Therapeutic exercise (45399), Manual therapy (44759), Therapeutic activities (75989), Self-long-term management (73507), Patient/Family/Caregiver Education, Body Mechanics Training PLAN FOR [...] is dull and aching. He saw Catherine Peraza, TISSUE TECHNICIAN, RANGE SCIENTIST and since that time he has had [...] pitcher. Difficulty with kitc (more content not included)...[facility]10-18-2024 Telephone encounter Note* Telephone Encounter - Karin Burns LISW - 01/23/2024 10:53 AM EDT SOCIAL WORK FOLLOW UP NOTE: [facility] Pt noted on [facility] report. Pt was seen by provider on 01/20. Per chart review, no distress noted. No other needs identified. Deferred SHER Fang [facility]10-18-2024 Miscellaneous Notes* Telephone Encounter - Karin Burns LISW - 01/23/2024 10:53 AM EDT SOCIAL WORK FOLLOW UP NOTE: [facility] Pt noted on [facility] report. Pt was seen by provider on 01/20. Per chart review, no distress noted. No other needs identified. Deferred SHER Fang documented in this encounterGreene Memorial Hospital10-16-2024 NoteC[facility]10-16-2024 History of Present illness Narrative* Lorin Zhang LPN - 01/21/2024 9:51 AM EDT Pt here for injection of xgeva given SQ in right arm and aranesp given SQ in left arm Pt tolerated well. For all other information regarding today, see today's OV note with Dr Herring. Lorin Zhang LPN documented in this encounterGreene Memorial Hospital10-16-2024 NoteC[facility]10-16-2024 History of Present illness Narrative* Dereje Herring MD - 01/21/2024 9:30 AM EDT (Elements copied from my note dated October 22, 2023, have been reviewed and updated where appropriate, and all reflect current assessment and medical decision making from today's encounter, January) HISTORY OF PRESENT ILLNESS: Luther Castillo is [...] confirmed metastatic disease. Biopsy of prostate confirmed [place] 7, prostate cancer. He started androgen deprivation [...] which included preparing to see the patient, [id number] patient care, completing clinical documentation, obtaining and/or reviewing separately obtained history, counseling and educating the patient/family/caregiver, ordering medications, soha ts, or procedures, independently interpreting results (not separately reported), and communicating results to the patient/family/caregiver. Electronically Signed: Dereje Herring MD January 21, 2024 documented in this encounterGreene Memorial Hospital09-24-2024 Telephone encounter Note * Telephone Encounter - Ashley Kramer LPN - 12/30/2023 2:35 PM EDT Phoned patient and went over results, notes from Catherine Peraza DENTAL INSURANCE COORDINATOR with understanding. [facility]09-24-2024 Miscellaneous Notes* Telephone Encounter - Ashley Kramer LPN - 12/30/2023 2:35 PM EDT Phoned patient and went over results, notes from Catherine Peraza DENTAL INSURANCE COORDINATOR with understanding. * Telephone Encounter - Ashley Kramer LPN - 12/30/2023 2:33 PM EDT ----- Message from Catherine Peraza APRN.CNP sent at 12/30/2023 2:09 PM EDT ----- Xray shows mild to moderate left hip arthritis. Would go ahead and do the PT and if not improving can have him see ortho. Catherine Peraza APRN.RANGE SCIENTIST documented in this encounterGreene Memorial Hospital09-24-2024 Telephone encounter Note * Telephone Encounter - Ashley Kramer LPN - 12/30/2023 2:33 PM EDT ----- Message from Catherine Peraza APRN.CNP sent at 12/30/2023 2:09 PM EDT ----- Xray shows mild to moderate left hip arthritis. Would go ahead and do the PT and if not improving can have him see ortho. Catherine Peraza APRN.JOI [facility]09-18-2024 History of Present illness Narrative* Aimee Farley RT(R) - 12/24/2023 12:00 PM EDT Radiology Service Progress Note PATIENT NAME: Luther Castillo DATE OF SERVICE: December 24, 2023 TIME: 11:58 AM PATIENT IDENTITY VERIFICATION COMPLETED USING TWO (2) IDENTIFIERS: Name and Date of confirmedby patient verbally. FALL SCREENING: Has the patient had 2 falls in the last year or 1 fall with injury or currently using an Ambulatory Assistive Device (Walker, Cane, Wheelchair, Crutches, etc.)? No PATIENT GENDER DATA: Male PATIENT RELEVANT IMPLANT DATA REVIEWED: Not Applicable PATIENT PRESENTS WITH AN IMPLANTABLE OR ATTACHED FLEET MANAGER/DISPATCH: No RADIOLOGY DEPARTMENT: General X-ray: Exam(s) Completed: Pelvis X-Ray: Pelvis with Hip Left PERIPHERAL IV DATA: Not applicable SIGNED BY: RT Teresita(R) December 24, 2023 11:58 AM documented in this encounterGreene Memorial Hospital09-18-2024 NoteC[facility]09-18-2024 History of Present illness Narrative* Catherine Peraza APRN.RANGE SCIENTIST - 12/24/2023 11:40 AM EDT 12/24/2023 Patient presents with: Pain: Left hip/lower [...] ER with red flag symptoms Catherine Peraza APRN.RANGE SCIENTIST Prescription instructions reviewed with patient as applicable. [...] Level: 4 - Moderate documented in this encounterGreene Memorial Hospital09-18-2024 NoteC[facility]09-11-2024 NoteC[facility]09-11-2024 History of Present illness Narrative* Lorin Zhang LPN - 12/17/2023 12:03 PM EDT Patient here for an injection of Xgeva SQ in left arm and Aranesp SQ in right arm. Pt tolerated well. Lorin Zhang LPN documented in this encounterGreene Memorial Hospital09-06-2024 Miscellaneous Notes* Telephone Encounter - Natalya Dorsey RN - 12/12/2023 2:29 PM EDT Call to patient, aware that Dr. Herring reviewed CT and Rx for Decadron sent to pharmacy. Dosingreviewed. Patient states understanding. Denies other concerns. Krista Dorsey RN * Telephone Encounter - Natalya Dorsey RN - 12/12/2023 1:[address] Herring reviewed scan. No concerning findings. Rx for Decadron po to be taken the am of injections. Krista Dorsey RN * Telephone Encounter - Natalya Dorsey RN - 12/11/2023 3:27 PM EDT Patient calls in and states that he went to [facility] ED. He states that after blood work, urinalysis, exam from physician, it was determined that the pain is not appendicitis. He was sent home. He states the pain is a little better this week but he is apprehensive about getting any more shots next week.He would like to know what Dr. Herring thinks about scans. Krista Dorsey RN * Telephone Encounter - Tee Ellis - 12/11/2023 9:34 AM EDT Called patient to review CT scans: mild acute appendicitis. Recommending ED for evaluation, abx, surgery consult. Pt acknowledged. Planning to go to [facility]. He reports pain is stable from last week. Not worsening. No fevers. No N/V. CT stable from cancer perspective. Tee Ellis APRN.RANGE SCIENTIST documented in this encounterGreene Memorial Hospital09-06-2024 Telephone encounter Note * Telephone Encounter - Natalya Dorsey RN - 12/12/2023 2:29 PM EDT Call to patient, aware that Dr. Herring reviewed CT and Rx for Decadron sent to pharmacy. Dosingreviewed. Patient states understanding. Denies other concerns. Krista Dorsey RN [facility] Work Phone: 1(915) 177-153109-06-2024 Telephone encounter Note* Telephone Encounter - Natalya Dorsey RN - 12/12/2023 1:[address] Herring reviewed scan. No concerning findings. Rx for Decadron po to be taken the am of injections. Krista Dorsey RN [facility]09-05-2024 Telephone encounter Note* Telephone Encounter - Natalya Dorsey RN - 12/11/2023 3:27 PM EDT Patient calls in and states that he went to [facility] ED. He states that after blood work, urinalysis, exam from physician, it was determined that the pain is not appendicitis. He was sent home. He states the pain is a little better this week but he is apprehensive about getting any more shots next week.He would like to know what Dr. Herring thinks about scans. Krista Dorsey RN [facility]09-05-2024 Telephone encounter Note* Telephone Encounter - Tee Ellis - 12/11/2023 9:34 AM EDT Called patient to review CT scans: mild acute appendicitis. Recommending ED for evaluation, abx, surgery consult. Pt acknowledged. Planning to go to [facility]. He reports pain is stable from last week. Not worsening. No fevers. No N/V. CT stable from cancer perspective. Tee Ellis, DORIS.RANGE SCIENTIST T [facility] Work Phone: 1(310) 916-462709-04-2024 History of Present illness Narrative* eDbbie Galvin, RT(R) - 12/10/2023 3:20 PM EDT Radiology Service Progress Note DATE OF SERVICE: [...] PATIENT PRESENTS WITH AN IMPLANTABLE OR ATTACHED FLEET MANAGER/DISPATCH: No ALLERGIES: Reviewed and unchanged CONTRAST ALLERGY: [...] creatinine assay has traceable calibration to isotope dilution- mass spectrometry. Refer to KDIGO guidelines for clinical interpretation. In patients with unstable renal function, e.g. those with acute kidney injury, the eGFRmay not accurately reflect actual GFR. eGFR- Date [...] 2023 TIME: 4:05 PM documented in this encounterGreene Memorial Hospital09-04-2024 NoteC[facility]08-30-2024 Telephone encounter Note* Telephone Encounter - Natalya Dorsey RN - 12/05/2023 4:22 PM EDT Spoke with patient/. Aware of instructions from Tee to go the ED if any new or increase in symptoms. Both state understanding. Krista Dorsey RN [facility] Work Phone: 1(266) 532-491008-30-2024 Miscellaneous Notes* Telephone Encounter - Natalya Dorsey RN - 12/05/2023 4:22 PM EDT Spoke with patient/. Aware of instructions from Tee to go the ED if any new or increase in symptoms. Both state understanding. Krista Dorsey RN * Telephone Encounter - Yaritza Carvajal - 12/05/2023 4:19 PM EDT Spoke with patient and scheduled CT. Transferred call to Retail Maintenance Technician for more instructions. Yaritza Carvajal * Telephone Encounter - Tee Ellis - 12/05/2023 2:05 PM EDT Prostate ca with known bone mets. Would not expect that reaction from either injection this far out. Ordered STAT CT a/p spine to assess. If pain is getting worse or causing numbness/tingling in legs should go to ED. Tee Ellis, DORIS.RANGE SCIENTIST * Telephone Encounter - Natalya Dorsey RN - 12/05/2023 1:33 PM EDT Care Coordination Triage Note [facility] Situation: Patient reports Other Pain Background: Disease, [...] 05, 2023 1:36 PM documented in this encounterGreene Memorial Hospital08-30-2024 Telephone encounter Note * Telephone Encounter - Yaritza Carvajal - 12/05/2023 4:19 PM EDT Spoke with patient and scheduled CT. Transferred call to Retail Maintenance Technician for more instructions. Yaritza Carvajal [facility]08-30-2024 Telephone encounter Note* Telephone Encounter - Tee Ellis - 12/05/2023 2:05 PM EDT Prostate ca with known bone mets. Would not expect that reaction from either injection this far out. Ordered STAT CT a/p spine to assess. If pain is getting worse or causing numbness/tingling in legs should go to ED. Tee Ellis APRN.RANGE SCIENTIST [facility]08-30-2024 Telephone encounter Note* Telephone Encounter - Natalya Dorsey RN - 12/05/2023 1:33 PM EDT Care Coordination Triage Note [facility] Situation: Patient reports Other Pain Background: Disease, [...] Dorsey RN December 05, 2023 1:36 PM [facility]08-27-2024 History of Present illness Narrative* Richie Dejesus MD - 12/02/2023 9:30 AM EDT CHIEF COMPLAINT: Patient presents with: Skin Check Last Dermatology Visit: [facility] - 11/27/2022 RELEVANT DERMATOLOGY HISTORY: Personal Hx of skin cancer: ~ basal cell CA - 11/07/20, Mid Chest - ED&C ~ squamous cell CA - /18, Left Frontal Scalp - Mohs Personal Hx [...] and legs. erythematous gritty papule(s) , Left quaker, right crown scalp, Upper dorsal nose, right quaker, Left dorsal hand, left lateral upper arm [...] in apparent distress Luther Castillo Medical Record: [id number] Date: 12/02/2023 Procedure: Cryosurgery The risks, benefits [...] to Actinic Keratosis. 8 lesion(s) treated Left quaker, right crown scalp, Upper dorsal nose, right quaker, Left dorsal hand, leftlateral upper arm Patient tolerated treatment well. Wound care instructions provided, pt verbalizes understanding. Richie Dejesus MD The documentation for this note was partially completed by Narda Gay MA acting as scribe for Richie Dejesus MD. December 02, 2023 7:06 AM. I agree with the Chief Complaint, ROS, and Past Histories independently gathered by the clinical customer support professional and the remaining scribed note accurately describes my personal service to the patient. VEE Ghosh MD Return to clinic 4 mo ak recheck documented in this encounterGreene [facility]08-27-2024 NoteC[facility]08-27-2024 Instructions* Patient Instructions* Nancy John LPN - 12/02/2023 9:29 AM [...] to more severe, depending on the depth ofthe freeze and location of the area treated. [...] Pat dry and apply a thin film ofvaseline. Do this at least once a day [...] 3 to 4 weeks. documented in this encounterGreene Memorial Hospital08-14-2024 NoteC[facility]08-14-2024 History of Present illness Narrative* Lorin Zhang LPN - 11/19/2023 10:47 AM EDT Pt here for injection of Xgeva given SQ in right arm and Aranesp given SQ in left arm. Pt toleratedwell. Lorin Zhang LPN documented in this encounterGreene Memorial Hospital08-12-2024 Telephone encounter Note * Telephone Encounter - Derrek Pham MA - 11/17/2023 7:32 AM EDTFrom: Luther Castillo To: Office of Sp Mckeon DO Sent: 11/15/2023 9:44 AM EDT Subject: Medication Renewal Request Refills have been requested for the following medications: tamsulosin (FLOMAX) 0.4 mg [Sp Mckeon DO] Preferred pharmacy: [id number] [address] - [address] [phone] [facility] [address] [address] Delivery method: P ickup [facility]08-12-2024 Miscellaneous Notes* Telephone Encounter - Derrek Pham MA - 11/17/2023 7:32 AM EDTFrom: Luther Castillo To: Office of Sp Mckeon DO Sent: 11/15/2023 9:44 AM EDT Subject: Medication Renewal Request Refills have been requested for the following medications: tamsulosin (FLOMAX) 0.4 mg [Sp Mckeon DO] Preferred pharmacy: [id number] [place] [address] - [address] -[phone] [facility] [address] [address] Delivery method: P ickup documented in this encounterGreene Memorial Hospital08-07-2024 History of Present illness Narrative* Sherri Campbell, AIRPLANE ELECTRICAL REPAIRER - 11/12/2023 8:45 AM EDT RADIOLOGY SERVICE PROGRESS NOTE SERVICE DATE: 11/12/2023 [...] PATIENT PRESENTS WITH AN IMPLANTABLE OR ATTACHED FLEET MANAGER/DISPATCH: No CREATININE: Creatinine Date Value Ref Range [...] creatinine assay has traceable calibration to isotope dilution- mass spectrometry. Refer to KDIGO guidelines for clinical interpretation. In patients with unstable renal function, e.g. those with acute kidney injury, the eGFRmay not accurately reflect actual GFR. eGFR- Date Value Ref Range Status 05/28/2021 >60 Final P.O.C.T. RESULTS: N/A November 12, [address] PERFORMED: No IV SITE: Ambulatory: A peripheral IV was started in the Right antecubital site with a Angio cath: 22 gauge. POST EXAM PIV STATUS: Discontinued PROCEDURE TYPE: NM Stress: 13 mCi Jn15q-Vngfhbz was administered IV for Rest Imaging at 8:35 by .35 mCi Iv09y-Qtlkfcz was administered IV for Stress Imaging at 9:42 by mm. PATIENT DISCHARGED TO: Ambulatory patient, left NM department area. A Diagnostic radioactive procedure has taken place, with no further precautions necessary other than routine body substance precautions. More information regarding radiation safety can be found usingthis link: [email or web address]%20Nuclear%20Medicine%[email or web address] SIGNATURE: JONY Farias PATIENT NAME: Luther Castillo DATE: November 12, 2023 TIME: 8:59 AM PAGER/CONTACT #: documented in this encounterGreene Memorial Hospital08-07-2024 NoteHNO ID: [id number] Author: SHERRI CAMPBELL CNMT Service: Radiology Author [...] PATIENT PRESENTS WITH AN IMPLANTABLE OR ATTACHED FLEET MANAGER/DISPATCH: No CREATININE: Creatinine Date Value Ref Range [...] Discontinued PROCEDURE TYPE: NM Stress: 13 mCi Tw12n-Brxmyeh was administered IV for Rest Imaging at 8:35 by . 35 mCi Ss67q-Evivmlt was administered IV for Stress Imaging at 9:42 by mm. PATIENT DISCHARGED TO: Ambulatory patient, left NM department area. A Diagnostic radioactive procedure has taken place, with no further precautions necessary other than routine body substance precautions. More information regarding radiation safety can be found using this link: [email or web address] 20Diagnostic%20Nuclear%20Medicine%20Procedures.pdf SIGNATURE: JONY Farias PATIENT NAME: Luther Castillo DATE: November 12, 2023 TIME: 8:59 AM PAGER/CONTACT [phone] Telephone encounter Note * Telephone Encounter - Sahara Oswald RN - 11/11/2023 11:50 AM EDT Left message regarding reminder and instructions for stress test tomorrow. This included where to check in, length of test and no caffeine for 12 hours prior to test, [facility]08-06-2024 Miscellaneous Notes* Telephone Encounter - Sahara Oswald RN - 11/11/2023 11:50 AM EDT Left message regarding reminder and instructions for stress test tomorrow. This included where to check in, length of test and no caffeine for 12 hours prior to test, documented in this encounterGreene Memorial Hospital08-06-2024 Telephone encounter Note * Telephone Encounter - Abigail Ferrer LPN - 11/11/2023 7:57 AM EDT Prescription Refill Information The patient has been [...] Ferrer LPN November 11, 2023 7:59 AM [facility]08-06-2024 Miscellaneous Notes* Telephone Encounter - Abigail Ferrer LPN - 11/11/2023 7:57 AM EDT Prescription Refill Information The patient has been [...] 11, 2023 7:59 AM documented in this encounterGreene Memorial Hospital07-17-2024 Nurse Note* Lorin Zhang LPN - 10/22/2023 9:37 AM EDT Pt here for injection of Xgeva and Aranesp. Given SQ in Left and Right arm respectivly. Pt tolerated well. For all other information regarding today, see today's OV note with Dr Herring. Lorin Zhang LPN [facility]07-17-2024 Nurse Note* Lorin Zhang LPN - 10/22/2023 9:37 AM EDT Pt here for injection of Xgeva and Aranesp. Given SQ in Left and Right arm respectivly. Pt tolerated well. For all other information regarding today, see today's OV note with Dr Herring. Lorin Zhang LPN documented in this encounterGreene Memorial Hospital07-17-2024 NoteC[facility]07-17-2024 History of Present illness Narrative* Dereje Herring MD - 10/22/2023 8:28 AM EDT (Elements copied from my note dated March 13, 2023, have been reviewed and updated where appropriate, and all reflect current assessment and medical decision making from today's encounter, October) HISTORY OF PRESENT ILLNESS: Luther Castillo is [...] confirmed metastatic disease. Biopsy of prostate confirmed [place] 7, prostate cancer. He started androgen deprivation [...] BPH (benign prostatic hyperplasia) Elevated PSA Dr cMkeon Family history of malignant neoplasm of prostate [...] which included preparing to see the patient, [id number] patient care, completing clinical documentation, obtaining and/or reviewing separately obtained history, counseling and educating the patient/family/caregiver, ordering medications, soha ts, or procedures, independently interpreting results (not separately reported), and communicating results to the patient/family/caregiver. Electronically Signed: Dereje Herring MD October 22, 2023 documented in this encounterGreene Memorial Hospital07-11-2024 Telephone encounter Note * Telephone Encounter - Gabi Douglas MA - 10/16/2023 3:44 PM EDT Please call pt to schedule Stress echo ordered today by Dr Champagne. Follow up appointment already scheduled. [facility]07-11-2024 Miscellaneous Notes* Telephone Encounter - Gabi Douglas MA - 10/16/2023 3:44 PM EDT Please call pt to schedule Stress echo ordered today by Dr Champagne. Follow up appointment already scheduled. documented in this encounterGreene Memorial Hospital07-11-2024 NoteHNO ID: [id number] Author: DORCAS CHAMPAGNE, DO Service: ? Author Type: Physician Type: Progress Notes Filed: 10/16/2023 17:25 Note Text: [facility] OUTPATIENT VISIT DATE October 16, 2023 PRIMARY CARE PHYSICIAN: Arsalan Ocampo [address] [place] [address] HISTORY OF PRESENT ILLNESS: Mr. Castillo is [...] quadrant Actinic keratosis Al (more content not included)...[facility] [id number] History of Present illness Narrative* Dorcas Champagne, - 10/16/2023 3:07 PM EDT Images from the original note were not included. [facility] OUTPATIENT VISIT DATE October 16, 2023 PRIMARY CARE PHYSICIAN: Arsalan Ocampo [address] [place] [address] HISTORY OF PRESENT ILLNESS: Mr. Castillo is [...] stage IV metastatic prostate cancer. He denies orthopnea,paroxysmal nocturnal dyspnea, palpitations, near- syncope or syncope. Patient had a regular treadmill stress test which was normal with the exception of heart rate response which would be considered consistent with deconditioning. The patient is retired and lives at home with his who accompanies today. He has grown childrenand grandchildren. He is a non-smoker having quit [...] evaluation with nuclear stress imaging. In the absenceof findings, would recommend other noncardiac causes of his symptoms which may be simple deconditioning versus pulmonary versus other. If that workup would prove unfruitful, then he may need further evaluation for invasive cardiac testing. Dietary and lifestyle modification were discussed at lengthto facilitate risk factor reduction. We will look [...] on 10/16/2023) Dorcas Champagne DO, FACC, FAC Marketing Budget Analyst, [facility] Ambulatory [facility]iology Marketing Budget Analyst, [facility] Cardiac Rehabilitation Marketing Budget Analyst, [facility] Cardiac Rehabilitation Marketing Budget Analyst, [facility] Congestive [facility] Failure [facility] Marketing Budget Analyst, [facility] Ambulatory Cardiology Clinical Sales Enablement Manager [employer] of Medicine, [facility] [employer] - [facility] Staff Mortgage Loan Closer, [employer] Juli Yeung Department of Cardiovascular Medicine/Heart and Vascular [place], [facility] Please note: This note has been produced using speech recognition software and may contain errors related to that system including mario, punctuation, spelling, words, gender and phrases that may be inappropriate. documented in this encounterGreene Memorial Hospital06-28-2024 Telephone encounter Note * Telephone Encounter - Lorin Zhang LPN - 10/03/2023 2:05 PM EDT Rx request from pharmacy. Next scheduled apt with dept 10/21 last apt 03/13/23 Lorin Zhang LPN [facility]06-28-2024 Miscellaneous Notes* Telephone Encounter - Lorin Zhang LPN - 10/03/2023 2:05 PM EDT Rx request from pharmacy. Next scheduled apt with dept 10/21 last apt 03/13/23 Lorin Zhang LPN documented in this encounterGreene Memorial Hospital06-27-2024 Nurse Note* Abigail Ferrer LPN - 10/02/2023 9:06 AM EDT Lupron injection administered, left buttock, tolerated well, no immediate adverse reactions noted. Abigail Ferrer LPN [facility]06-27-2024 Nurse Note* Abigail Ferrer LPN - 10/02/2023 9:06 AM EDT Lupron injection administered, left buttock, tolerated well, no immediate adverse reactions noted. Abigail Ferrer LPN documented in this encounterGreene Memorial Hospital06-19-2024 History of Present illness Narrative* Lorin Zhang LPN - 09/24/2023 9:11 AM EDT Pt here for injection of Aranesp in the right arm and xgeva given SQ in the left arm. Pt tolerated well. Lorin Zhang LPN documented in this encounterGreene Memorial Hospital06-05-2024 Telephone encounter Note * Telephone Encounter - Kiera Luna OCCA - 09/10/2023 1:01 PM EDT Please see patient message below. Prescription Refill [...] CHRIS Goldsmith September 10, 2023 1:02 PM [facility]06-05-2024 Miscellaneous Notes* Telephone Encounter - Kiera Luna OCCA - 09/10/2023 1:01 PM EDT Please see patient message below. Prescription Refill [...] 10, 2023 1:02 PM documented in this encounterGreene Memorial Hospital05-23-2024 Telephone encounter Note * Telephone Encounter - Natalya Dorsey RN - 08/28/2023 2:[address] Herring reviewed labs and ok with follow up in October. Krista Dorsey RN [facility] Work Phone: [phone] Miscellaneous Notes* Telephone Encounter - Natalya Dorsey RN - 08/28/2023 2:[address] Herring reviewed labs and ok with follow up in October. Krista Dorsey RN * Telephone Encounter - Yaritza Carvajal - 08/27/2023 10:32 AM EDT Spoke with patient when he was here and scheduled OV in October as Dr. Herring didn't have any availability on the same day as his September injection appointment. Is this acceptable? Yaritza Carvajal * Telephone Encounter - Natalya Dorsey RN - 08/27/2023 9:32 AM EDT Per Epic appointment notes, patient due OV in September. Krista Dorsey RN * Telephone Encounter - Lorin Zhang LPN - 08/27/2023 9:15 AM EDT Pt states every time he has needed the aranesp injection he feels terrible for at least 3 days after. Headaches and fatigue, no initiative to do much. He does not have a f/u scheduled with you at this time. documented in this encounterGreene Memorial Hospital05-22-2024 Telephone encounter Note * Telephone Encounter - Yaritza Carvajal - 08/27/2023 10:32 AM EDT Spoke with patient when he was here and scheduled OV in October as Dr. Herring didn't have any availability on the same day as his September injection appointment. Is this acceptable? Yaritza Carvajal [facility]05-22-2024 Telephone encounter Note* Telephone Encounter - Natalya Dorsey RN - 08/27/2023 9:32 AM EDT Per [facility] appointment notes, patient due OV in September. Krista Dorsey RN [facility]05-22-2024 Telephone encounter Note* Telephone Encounter - Lorin Zhang LPN - 08/27/2023 9:15 AM EDT Pt states every time he has needed the aranesp injection he feels terrible for at least 3 days after. Headaches and fatigue, no initiative to do much. He does not have a f/u scheduled with you at this time. [facility]04-30-2024 Telephone encounter Note* Telephone Encounter - Gabbi Ugarte - 08/05/2023 9:41 AM EDT Pt read MC message. [facility]04-30-2024 Miscellaneous Notes* Telephone Encounter - Gabbi Ugarte - 08/05/2023 9:41 AM EDT Pt read MC message. * Telephone Encounter - Gabbi Ugarte - 08/04/2023 10:[address] Denys hooks cancelled and rescheduled to soonest in [place]. 1st attempt to notify pt, LVM and sent MC message. documented in this encounterGreene Memorial Hospital04-29-2024 Telephone encounter Note * Telephone Encounter - Gabbi Ugarte - 08/04/2023 10:[address] Denys hooks cancelled and rescheduled to soonest in [place]. 1st attempt to notify pt, LVM and sent MC message. [facility]04-25-2024 Nurse Note* Lorin Zhang LPN - 07/31/2023 9:23 AM EDT Patient here for injection of Xgeva, given SQ in left arm. Pt denies any jaw or tooth pain. Aranespinj given in right arm Pt tolerated well. Lorin Zhang LPN [facility]04-25-2024 Nurse Note* Lorin Zhang LPN - 07/31/2023 9:23 AM EDT Patient here for injection of Xgeva, given SQ in left arm. Pt denies any jaw or tooth pain. Aranespinj given in right arm Pt tolerated well. Lorin Zhang LPN documented in this encounterGreene Memorial Hospital03-14-2024 Miscellaneous Notes* Telephone Encounter - Natalya Dorsey RN - 06/19/2023 11:50 AM EDT Call to patient, aware ok to receive more Xgeva from dentist. We will keep next Xgeva as scheduled on 07/03/23. Patient denies any further jaw pain since. Denies other issues. States he was evaluated by his PCP, has a stress test and was told that was normal. Patient denies further questions or concerns. Krista Dorsey RN * Telephone Encounter - Natalya Dorsey RN - 06/18/2023 8:27 AM EDT Received call back from [facility]. Patient was in his office and had an exam on 06/04/23, the day before in our office stating jaw pain for the past week. Dr. Christian does not think patient has any contraindication to receive more Xgeva. Krista Dorsey RN * Telephone Encounter - Natalya Dorsey RN - 06/16/2023 12:56 PM EDT Call to [facility], explained to nurse receptionist that patient needs dental evaluation for jaw pain that he was having. Asked that the dentist review x- rays. We need to know if no issues and ok to continue on Xgeva. She will discuss with Dr. Christian and call us back. Krista Dorsey RN * Telephone Encounter - Natalya Dorsey RN - 06/13/2023 3:44 PM EST Spoke with patient. He sees Dr. Roberts at [facility] in [place]. [phone]. He is aware that we will contact them for dental clearance to continue on treatment or not. Krista Dorsey RN Office closed at 12noon today. Will reach out to them on Friday. Krista Dorsey RN * Telephone Encounter - Natalya Dorsey RN - 06/12/2023 11:02 AM EST I have not received anything by email. Call to patient, no answer, left message to call back and let us know the dentist name/number so wecan reach out to them. Krista Dorsey RN * Telephone Encounter - Natalya Dorsey RN - 06/10/2023 4:25 PM EST I have checked my email and nothing has come through yet. Krista Dorsey RN * Telephone Encounter - Sahara Mcneill LPN - 06/10/2023 2:26 PM EST Dental office called the [facility] and stated they would email xray results. RNCC aware. Sahara Mcneill LPN * Telephone Encounter - Natalya Dorsey RN - 06/06/2023 12:00 PM EST Call to patient, states he would like to know what x-ray he needs to have and then he can call backto his dentist and let them know what [...] Dentist needs to decide if it's something toothor jaw related that needs addressed. And, a normal dental x-ray in their office if needed. Patient states he will stop by dentist office on 06/09/23 and talk this over with them. He will have them fax over their evaluation to us. Krista Dorsey RN * Telephone Encounter - Gabi Reyna - 06/06/2023 10:59 AM EST Patient states Dr. Herring informed him to have an xray of his jaw. He spoke with his dentist, who referred him to an oral surgeon. Oral surgeon was unsure of what was needed and stated a hospitalcould do xray and be covered by his medical insurance. I do not see any orders in [facility]. Patient is asking to speak to clinical. documented in this encounterGreene Memorial Hospital03-12-2024 Miscellaneous Notes* Telephone Encounter - Yaritza Guerrier RN - 06/17/2023 3:30 PM EDT Patient notified of results. Patient verbalizes understanding. Yaritza Guerrier RN * Telephone Encounter - Sarah Lemus LPN - 06/17/2023 2:13 PM EDT Left a message for pt to call the office and ask to speak to a nurse. Sarah Lemus LPN * Telephone Encounter - Sarah Lemus LPN - 06/17/2023 2:12 PM EDT ----- Message from Catherine Peraza APRN.RANGE SCIENTIST sent at 06/17/2023 1:46 PM EDT ----- Stress testing was normal. Catherine Peraza APRN.CNP documented in this encounterGreene Memorial Hospital03-12-2024 Miscellaneous Notes* Telephone Encounter - Antoinette Martini LPN - 06/17/2023 2:15 PM EDT Patient has been identified by name and [...] you. Antoinette Martini LPN. documented in this [facility]03-11-2024 Miscellaneous Notes* Telephone Encounter - Sahara Oswald RN - 06/16/2023 2:17 PM EDT Spoke with patient regarding reminder for stress test tomorrow and given instructions. documented in this encounterGreene Memorial Hospital03-06-2024 Miscellaneous Notes* Telephone Encounter - Kiera Luna OCCA - 06/11/2023 4:57 PM EST TC to patient who verbalized understanding of providers message and has no questions at this time. CHRIS Goldsmith * Telephone Encounter - Kiera Luna OCCA - 06/11/2023 4:55 PM EST ----- Message from Arsalan Ocampo MD sent at 06/11/2023 4:51 PM EST ----- Normal labs. No changes in regimen based on results. The 10-year ASCVD risk score (Iola DK, et al., 2019) is: 11.1% Values used to calculate the score: Age: 68 years Sex: Male Is Non- : No Diabetic: No Tobacco smoker: No Systolic Blood Pressure: 114 mmHg Is BP treated: No HDL Cholesterol: 78 mg/dL Total Cholesterol: 161 mg/dL documented in this encounterGreene Memorial Hospital03-06-2024 History of Present illness Narrative* Aimee Farley RT(R) - 06/11/2023 11:10 AM EST Radiology Service Progress Note PATIENT NAME: Luther Castillo DATE OF SERVICE: June 11, 2023 TIME: 11:25 AM PATIENT IDENTITY VERIFICATION COMPLETED USING TWO (2) IDENTIFIERS: Name and Date of confirmedby patient verbally. FALL SCREENING: Has the patient had 2 falls in the last year or 1 fall with injury or currently using an Ambulatory Assistive Device (Walker, Cane, Wheelchair, Crutches, etc.)? No PATIENT GENDER DATA: Male PATIENT RELEVANT IMPLANT DATA REVIEWED: Not Applicable PATIENT PRESENTS WITH AN IMPLANTABLE OR ATTACHED FLEET MANAGER/DISPATCH: No RADIOLOGY DEPARTMENT: General X-ray: Exam(s) Completed: Chest X-Ray PERIPHERAL IV DATA: Not applicable SIGNED BY: RT Teresita(R) June 11, 2023 11:25 AM documented in this encounterGreene Memorial Hospital03-06-2024 History of Present illness Narrative* ToneylogCatherine verduzco APRN.RANGE SCIENTIST - 06/11/2023 10:06 AM EST 06/11/2023 Patient presents with: Discussion: Oncology Dr. [...] and had xray's which were fine per patient.Adits to some congestion whistling or wheezing when [...] minute AXIS: Left axis deviation INTERVALS: Normal [place] interval, possible left atrial enlargement QRS COMPLEX: [...] for further evaluation if persists Catherine Peraza APRN.RANGE SCIENTIST Prescription instructions reviewed with patient as applicable. [...] Level: 4 - Moderate documented in this encounterGreene Memorial Hospital02-29-2024 History of Present illness Narrative* Lorin Zhang LPN - 06/05/2023 10:04 AM EST Xgeva held due to some jaw pain earlier this week. Dr Phil paz. Instructed Dental x-rays and follow up with PCP for SOB during his daily walks. See phone note to PCP. Aranesp given SQ in right arm for Hgb of 9.9 Lorin Zhang LPN documented in this encounterGreene Memorial Hospital02-01-2024 History of Present illness Narrative* Lorin Zhang LPN - 05/08/2023 9:32 AM EST Pt here for injection of Xgeva. Given SQ in left arm. Pt tolerated well. Aranesp injection deferred. Pt did not meet treatment parameters. Hgb 10.2 Lorin Zhang LPN documented in this encounterGreene Memorial Hospital12-13-2023 Miscellaneous Notes* Telephone Encounter - Catherine Peraza APRN.CNP - 03/19/2023 12:39 PM EST I my chart messaged patient to let him know the fast was long enough. He should start the medicine and recheck labs in 3 months. Catherine Peraza APRN.JOI * Telephone Encounter - Derrek Naqvi, ERIN - 03/18/2023 12:18 PM EST Pt called and is notified of providers results and instructions. Pt voices understanding. Pt had sent a [employer] message on 03/17/23 stating, Dr. Ocampo's office [...] high cholesterol? Thanks. Let Pt know that jerhould have been fine with his fasting time as it says fast for 10-12 hours prior to lab. Pt just wanted to make sure this was ok with provider. Derrek Naqvi, RN * Telephone Encounter - Arsalan Ocampo MD - 03/18/2023 11:43 AM EST Rx sent. Repeat labs ordered. Call with any concerning side effects. * Telephone Encounter - Kiera Luna OCCA - 03/17/2023 3:41 PM EST TC to patient who verbalized understanding of providers message and is agreeable to statin. Patientasking provider if it is okay to start this when reviewing the other medications he is currently on. Patient requesting medication be sent to [facility] ([address] * Telephone Encounter - Kiera Luna OCCA - 03/17/2023 3:40 PM EST ----- Message from Arsalan Ocampo MD sent [...] pharmacy. The 10-year ASCVD risk score (Blair HARRELL, et al., 2019) is: 13.5% Values used to calculate the score: Age: 67 years Sex: Male Is Non- : No Diabetic: No Tobacco smoker: No Systolic Blood Pressure: 129 mmHg Is BP treated: No HDL Cholesterol: 90 mg/dL Total Cholesterol: 214 mg/dL documented in [facility] encounter[facility]12-12-2023 Miscellaneous Notes* Telephone Encounter - Derrek Naqvi RN - 03/18/2023 12:19 PM EST Added to TE from 03/17/23. * Telephone Encounter - Mariangel Baum Ma - 03/17/2023 5:46 PM EST See pt mychart message. documented in this encounterGreene [facility] Hospital12-11-2023 Miscellaneous Notes* Telephone Encounter - Gabi Reyna - 03/17/2023 2:29 PM EST Patient informed * Telephone Encounter - Gabi Reyna - 03/17/2023 11:24 AM EST Schedule is update for patient and 1st attempt message left for him to contact office and confirm appts. -Please advise that 04/01 has been canceled. -Patient will have all 3 injections on 04/10. -Advise patient that 10/01 appointments have been canceled due to change in schedule and will be rescheduled with Kelsey injections. * Telephone Encounter - Natalya Dorsey RN - 03/14/2023 12:[address] Herring, Aranesp is Qmonth. He ask that we adjust the dates within [place]. Krista Dorsey RN * Telephone Encounter - Gabi Reyna - 03/14/2023 8:12 AM EST Patient scheduled for Q2WK Aranesp on 04/01. Would not be due again until 04/15. Notes were in appt notes stating QMO Aranesp and to give when patient gets Xgeva. Patient is due for Xgeva on 04/10. Okay to give 5 days early? Please confirm of QMO or Q2WK for Aranesp. Thank you. * Telephone Encounter - Abigail Ferrer LPN - 03/13/2023 4:24 PM EST Appears pt. Needs scheduled for every 2 week cbc poss Aranesp. Initial injection scheduled 04/01. PSS please schedule and notify pt.. Will need to clarify with Dr. Herring . Abigail Ferrer LPN * Telephone Encounter - Natalya Dorsey RN - 03/13/2023 3:35 PM EST Images from the original note were not included. Call to patient and aware of above. Questions answered. Appointment notes changed. Krista Dorsey, RN documented in this [facility]12-07-2023 Nurse Note* Lorin Zhang LPN - 03/13/2023 10:04 AM EST Pt here for injection of Faslodex. Given IM in B/L buttocks. Pt tolerated well. For all other information regarding today, see today's OV note with Dr Herring. Lorin Zhang LPN documented in this [facility]11-14-2023 Miscellaneous Notes* Telephone Encounter - Abigail Ferrer LPN - 02/18/2023 1:48 PM EST Patient has been identified by name and date of : Yes Requested Prescriptions Pending Prescriptions Disp Refills predniSONE (DELTASONE) 5 mg tablet 60 tablet 2 Sig: Take 1 tablet by mouth two times a day. RX INSTRUCTIONS: Patient aware RX will be sent to pharmacy. No need to notify patient. Abigail Ferrer LPN documented in this [facility]11-09-2023 History of Present illness Narrative* Lorin Zhang LPN - 02/13/2023 10:37 AM EST Pt here for injection of Xgeva. Given sq in left arm. Pt tolerated well. Lorin Zhang LPN documented in this [facility]10-12-2023 Nurse Note* Lorin Zhang LPN - 01/16/2023 9:33 AM EDT Pt here for injection of Xgeva. Given sq in left arm. Pt tolerated well. Lorin Zhang LPN documented in this encounterGreene [facility] Hospital10-10-2023 Miscellaneous Notes* Telephone Encounter - Lorin Zhang LPN - 01/14/2023 3:43 PM EDT Rx pended. Lorin Zhang LPN documented in this encounterGreene [facility]09-14-2023 History of Present illness Narrative* Lorin Zhang LPN - 12/19/2022 9:47 AM EDT Pt here for injection of Xgeva. Given SQ in right arm. Pt tolerated well. Lorin Zhang LPN documented in this encounterGreene [facility] Hospital08-28-2023 History of Present illness Narrative* Derrek Baker PA-C - 12/02/2022 6:09 AM EDT HISTORY AND PHYSICAL Luther Castillo 1955 REFERRING PHYSICIAN: Arsalan Ocampo,* CHIEF COMPLAINT: Thrombosed hemorrhoid HPI: Luther is a 67 year old male referred for possible thrombosed hemorrhoid. States first noticed ahard lump in the anal area a few [...] entered by the nurse and reviewed by vt Nursing Notes: Marilin Melvin LPN 11/19/2022 1:27 [...] back pain/injury, denies back problems, denies sciatica, deniesknee/foot trouble, NOTES arthritis, or denies gout. When [...] exam deferred Other: Perianal examination performed with shipfitter present. +external hemorrhoids and small perianal cyst [...] for an opinion regarding hemorrhoid. My final recommendationswill be communicated back to the requesting physician by way of shared Medical record or letter to requesting physician via US mail. Derrek Baker PA-C documented in this encounterGreene [facility] Hospital08-23-2023 Instructions* Patient Instructions* Richie Dejesus MD - 11/27/2022 9:48 AM [...] to more severe, depending on the depth ofthe freeze and location of the area treated. [...] Pat dry and apply a thin film ofvaseline. Do this at least once a day [...] 3 to 4 weeks. documented in this encounterGreene [facility] Hospital08-23-2023 History of Present illness Narrative* Richie Dejesus MD - 11/27/2022 9:30 AM EDT CHIEF COMPLAINT: Skin check Last Dermatology Visit: [facility] - 05/17/22 REFERRAL: No referring provider defined for this encounter. RELEVANT DERMATOLOGY HISTORY: Personal Hx of skin cancer: ~ basal cell CA - /06/25, Mid Chest - ED&C ~ squamous cell [...] in apparent distress Luther Castillo Medical Record: [id number] Date: 11/27/2022 Procedure: Cryosurgery The risks, benefits [...] by Priya Moe LPN acting as scribe forRichie Dejesus MD. November 27, 2022 7:40 AM. I agree with the Chief Complaint, ROS, and Past Histories independently gathered by the clinical customer support professional and the remaining scribed note accurately describes my personal service to the patient. Priya Dejesus MD Return to clinic yearly for skin check documented in this encounterGreene [facility] Hospital08-17-2023 Nurse Note* Lorin Zhang LPN - 11/21/2022 9:40 AM EDT Pt here for injection of Xgeva. Given sq in right arm. Pt tolerated well. documented in this encounterGreene [facility] Hospital08-16-2023 Miscellaneous Notes* Telephone Encounter - Sanjeev Aranda APRN.CNP - 11/20/2022 3:01 PM EDT The following approved medication requests have been [...] Refusal: A Refill not appropriate Sanjeev Aranda APRN.JOI * Telephone Encounter - Catherine Peraza APRN.CNP - 11/20/2022 1:46 PM EDT Doesn't look like Dr. Ocampo fill this medication. Will route to ordering provider. Catherine Peraza APRN.CNP * Telephone Encounter - Sarah Lemus LPN - 11/20/2022 9:16 AM EDT Patient has been identified by name and [...] you. Sarah Lemus LPN documented in this encounterGreene Memorial Hospital08-15-2023 Instructions* Patient Instructions* Derrek Baker PA-C - 11/19/2022 2:01 PM EDT -Continue Anusol cream for an additional week -Recommend fiber supplement, plenty of fluids, keep bowel movements soft and regular -Follow up if lump enlarges or becomes tender documented in this encounterGreene [facility] Hospital08-15-2023 Nurse Note* Marilin Melvin LPN - 11/19/2022 1:22 PM EDT REVIEW OF SYSTEMS: General: The patient denies [...] back pain/injury, denies back problems, denies sciatica, deniesknee/foot trouble, NOTES arthritis, or denies gout. When was patient's last Mammogram screening? N/A Last Colonoscopy: 2021 Marilin Melvin LPN documented in this [facility]07-20-2023 Nurse Note* Lorin Zhang LPN - 10/24/2022 9:32 AM EDT Pt here for injection of xgeva. Given sq in left arm. Pt tolerated well. Lorin Zhang LPN documented in this [facility]07-10-2023 Nurse Note* Lorin Zhang LPN - 10/14/2022 9:24 AM EDT Pt here for injection of Lupron. Given IM in right buttocks. Pt tolerated well. Lorin Zhang LPN documented in this [facility]06-26-2023 Miscellaneous Notes* Telephone Encounter - Lexie Gambino Ma - 09/30/2022 4:12 PM EDT Imm updated, pt made aware. Lexie Gambino Ma documented in this [facility]06-22-2023 History of Present illness Narrative* Lorin Zhang LPN - 09/26/2022 9:58 AM EDT Pt here for injection of xgeva. Given sq in right arm. Pt tolerated well. Lorin Zhang LPN documented in this [facility]06-19-2023 Hospital Discharge instructions Patient Education 09/23/2022 15:26:13 [...] date on this vaccination and the object thatcut you may carry tetanus. Home care Your healthcare provider may prescribe an antibiotic. This is to help prevent infection. Follow allinstructions for taking this medicine. Take the medicine every day until it is gone or you are toldto stop. You should not have any left [...] the stitches dry, clean the wound daily. First,remove the bandage. Then wash the area gently with soap and warm water, or as directed by the healthcare provider. Use a wet cotton swab to loosen and remove any blood or crust that forms. After cleaning, apply a thin layer of antibiotic ointment if advised. Then put on a new bandage unless you aretold not to. Caring for skin glue: Don [...] affected hand Decreased movement of the hand [id number] [employer]. [address] [place] [address], [place] [address]. All rights reserved. This information is not intended as a substitute for professional medical care. Always follow yourhealthcare professional's instructions. Follow Up Care 09/23/2022 13:48:52 With:ARSALAN OCAMPO MD Address: [address] [place] [id number] When:2-4 days [facility] 06-19-2023 Note Discharge Instructions Thank you for allowing [facility] to assist you with your healthcare needs. The following is importantdischarge information regarding your hospital visit. Diagnosis from Today's Visit Finger laceration What to Do Next Instructions from Your Care Team Follow-up in 10 days for suture removal. Keep it clean and dry. No qualifying data available. Post Acute Orders No qualifying data available. You Need to Schedule the Following Appointments Follow Up with ARSALAN OCAMPO MD When Within 2-4 days Where: [address] [place] [id number]- Allergies NKA Immunizations This Visit Given Vaccine Datetetanus/diphth/pertuss (Tdap) adult/adol 09/23/2022 Medications Please ask your primary doctor or pharmacist before taking any other medication not listed, including over the counter drugs, herbal medications, vitamins and or supplements as they may interact withyour home medications. What How Much When Instructions [...] date on this vaccination and the object thatcut you may carry tetanus. Home care Your healthcare provider may prescribe an antibiotic. This is to help prevent infection. Follow allinstructions for taking this medicine. Take the medicine every day until it is gone or you are toldto stop. You should not have any left [...] the stitches dry, clean the wound daily. First,remove the bandage. Then wash the area gently with soap and warm water, or as directed by the healthcare provider. Use a wet cotton swab to loosen and remove any blood or crust that forms. After cleaning, apply a thin layer of antibiotic ointment if advised. Then put on a new bandage unless you aretold not to. Caring for skin glue: Don [...] affected hand Decreased movement of the hand [id number] [employer]. [address] [place] [address]. All rights reserved. This information is not intended as a substitute for professional medical care. Always follow yourhealthcare professional's instructions. Additional Information VACCINATE! IT SAVES LIVES! Members of the community who have not yet received the COVID-19 vaccine and would like to receive it can visit one of [facility] vaccine clinics. There are many vaccine clinic locations within the [facility]. For locations and available times, please visit www.gettheshot.coronavirus.[place].gov/. It is important to note that some COVID mobile vaccine clinics are held outdoors and may be canceled in rainy or stormy conditions. To learn more about pediatric vaccinations (ages 5-11), we invite you to visit the [facility] webpage. https://www.[facility].org/pages/2632-Dtxij-Lftqrvalnjf-Xzltenebni-Mxknu-Uku stions.htmlTo learn more about the COVID-19 vaccine, we invite you to visit the CDC website for a list of frequently asked questions. https://www.cdc.gov/coronavirus/2019-ncov/vaccines/faq.html [facility] Patient Portal Access Instructions: Stay connected with your healthcare team and access your personal medical information anytime with the [facility] Patient Portal. If you would like a full copy of your medical records please contact the [facility] Medical Records Department Friday through Friday between 8a.m. and 4:30p.m. Please follow the directions below to access the portal: 1.Access the email account you provided upon registration to the [facility].2.Look for an invitation email from [facility].3.Open the email and access the invitation link: Accept Invitation to [facility]4.Fill in the required savage to create your account. Sign into www.[employer] with your username and password that you [...] you will allow to register on the [facility] Patient Portal for access to your information. You can also access the [facility] Patient Portal on the [facility] manjeet. Simply click on Health Records under [employer] and then click on the [address] logo. HOW TO SAFELY DISPOSE OF PRESCRIPTION MEDICATIONS Please use one of the following methods to safely dispose of your unused medications. 1.Use a drug disposal kit: the drug disposal pouch allows you to safely discard your old and unuseddrugs. Ask your nurse to give you one when you are discharged.2.Visit a local take-back location: Many local pharmacies and police departments have programs that collect old and unwanted prescriptiondrugs. Call your local pharmacy or go to http://bit.ly/6C8Ga6w to find one close to you.3.Make use of household items: Use cat litter or old coffee grounds to dispose medications if other options arenot available. Mix your drugs with these household products, seal them in an airtight container andthrow it into the garbage. Call [facility]: [phone] to be sure your drugs can be [...] drowsiness, such as benzodiazepines, also known as benzos,including diazepam and alprazolam, muscle relaxants or sleep aids. Never sell or share prescriptionopioids. This is illegal. Store opioids in a secure place and out of reach of others (including children, family, friends and visitors). The last page(s) of this document has been signed and retained as a CHART COPY Signatures Patient Education Materials Kimberly Castelan: All Closures Medication Leaflets My discharge plan and instructions have been reviewed and explained to me and I,LUTHER CASTILLO understand my current condition and have read and understand these discharge instructions. I have received a written copy of the plan/instructions. If I have questions, I am aware that I should contact my doctor. 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 All others scheduling was done on Friday at check-out Nicole Parr * Telephone Encounter - Sanjeev Aranda APRN.CNP - 08/19/2022 12:57 PM EDT Please add PSA every three months. See AVS from FridayAugust 16. Thank you. Sanjeev Aranda APRN.CNP documented in this encounterGreene [facility] Hospital05-12-2023 History of Present illness Narrative* Sanjeev Aranda APRN.CNP - 08/16/2022 11:20 AM EDT Chief Complaint Patient presents with: Established Patient [...] 1.00 - 4.00 k/uL 1.46 2.22 2.26 Bullock% % 3.8 8.2 8.7 Abs Bullock <0.87 k/uL 0.23 0.47 0.46 Eosin% % [...] 6 months to be done here in [place] (Has been getting them in [place]). - Follow up with Urology as scheduled. [...] visit. Sanjeev Aranda APRN.JOI documented in this [facility]05-08-2023 Miscellaneous Notes* Telephone Encounter - Abigail Tyson LPN - 08/12/2022 7:49 AM EDT Labs done 08/07/2022, appt. With Sanjeev 08/16 Patient has been identified by name and date of : Yes Requested Prescriptions Pending Prescriptions Disp Refills abiraterone 250 mg tablet 120 tablet 5 RX INSTRUCTIONS: Patient aware RX will be sent to pharmacy. No need to notify patient. Abigail Tyson LPN documented in this [facility]04-27-2023 Nurse Note* Stephanie Duron RN - 08/01/2022 10:16 AM EDT The patient is here for an injection of Xgeva Dose: 120 mg Route: Subcutaneous Lot# [id number] Expiration date 06-04-2024 Given without incident. Site: right upper quadrant abdomen Dr. Mckeon present in clinic at time of injection. The date due for the next injection is 1 month Patient education was given by nurse. Stephanie Duron RN documented in this [facility]02-23-2023 Nurse Note* Luther Arthur RN - 05/30/2022 10:10 AM EST The patient is here for an injection of Prolia Dose: 60mg/1ml Calcium, Total Date Value Ref Range Status 02/12/2022 9.1 8.5 - 10.2 mg/dL Final Last Office Visit was 04/26/2022 Route: Subcutaneous Given without incident Site: left arm Lot number [id number] Expiration Date 06/04/2024 Dr. mckeon present in clinic at time of injection The date due for the next injection is 1 month Luther Arthur RN 8:30 AM June 14, 2022 documented in this encounterGreene [facility] Hospital02-10-2023 Instructions* Patient Instructions* Richie Dejesus MD - 05/17/2022 2:06 PM EST AFTERCARE CRYOTHERAPY The skin s response to cryosurgery (freezing) can be mild to more severe, depending on the depth ofthe freeze and location of the area treated. [...] Pat dry and apply a thin film ofvaseline. Do this at least once a day [...] 3 to 4 weeks. documented in this encounterGreene Memorial Hospital02-10-2023 History of Present illness Narrative* Richie Dejesus MD - 05/17/2022 2:00 PM EST Cryosurgery of non-malignant lesion(s) HPI: Patient is here for cryosurgery Patient is alert oriented 3 not in apparent distress Luther Castillo Medical Record: [id number] Date: 05/17/2022 Procedure: Cryosurgery The risks, benefits [...] MD RTC 6 months documented in this encounterGreene [facility] Hospital02-01-2023 Miscellaneous Notes* Telephone Encounter - LIZANDRO La - 05/08/2022 12:08 PM EST Results left on patient voicemail. Luther Castillo's Multi-Cancer panel and Hereditary Myelodysplastic Syndrome/Leukemia Panel plus preliminary evidence genes through [facility] was negative for a pathogenic variant. 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 No changes are recommended to his management, based on this result. Please see Pledge51 message for further discussion. LIZANDRO La Licensed, Certified Genetic Counselor documented in this encounterGreene Memorial Hospital01-20-2023 NoteHNO ID: [id number] Author: Sp Mckeon, DO Service: ? Author Type: Physician Type: Progress Notes Filed: 05/07/2022 2:46 PM Note Text: [facility] LOCATION: [address] [place] [address] ESTABLISHED PATIENT PATIENT INFO: Luther Castillo 67 [...] A. PROSTATE, BIOPSY, RIGHT BASE: Prostatic adenocarcinoma, Vineland score 3+4=7 (Grade group 2), involving 60% of one core (8 mm tumor length). - Percentage of Vineland pattern 4 = 20%. - Expansile cribriform morphology is present. B. PROSTATE, BIOPSY, RIGHT MID: Prostatic adenocarcinoma, Rasheed score 4+3=7 (Grade group 3), involving 90% of one core (10 mm tumor length). - Percentage of Vineland pattern 4 = 90%. - Expansile cribriform [...] G. PROSTATE, BIOPSY, LEFT BASE: Prostatic adenocarcinoma, Vineland score 3+3=6 (Grade group 1), involving 4% [...] 50.5 Lymph% (%) Date Value 02/12/2022 38.7 Bullock% (%) Date Value 02/12/2022 8.2 Eosin% (%) Date Value 05/28/2021 1.5 Baso% (%) Date Value 02/12/2022 0.5 Abs Neut (k/uL) Date Value 02/12/2022 2.89 Abs Bullock (k/uL) Date Value 02/12/2022 0.47 Abs Eosin (k/uL) Date Value 02/12/2022 0.11 Abs Baso (k/uL) Date Value 02/12/2022 0.03 Creatinine Date Value Ref Range Status 02/12/2022 0.98 0.73 - 1.22 mg/dL Final 11/20/2021 1.05 0.73 - 1.22 mg/dL Final 08/24/2021 0.98 (more content not included)...[facility] 04-26-2022 History of Present illness Narrative* Sp Mckeon, - 04/26/2022 11:41 AM EST Images from the original note were not included. [facility] LOCATION: [address] [place] [address] ESTABLISHED PATIENT PATIENT INFO: Luther Castillo 67 [...] April 19. MRI prostate showed cancer of prostatewith capsular invasion some likely metastases to the pelvic bone region. His bone scan subsequentlyconfirmed metastatic disease. Biopsy of prostate confirmed Vineland 7, prostate cancer. He started androgen deprivation [...] swelling or tenderness. He has mild arthritic pa in. 1-Duration: 2021 2-Location: prostate 3-Severity: N/A 4-Quality: [...] (10 mm tumor length). - Percentage of Vineland pattern 4 = 90%. - Expansile cribriform morphology is present. C. PROSTATE, BIOPSY, RIGHT APEX: Prostatic adenocarcinoma, Vineland score 3+4=7 (Grade group 2), involving 35% of one core (3 mm tumor length). - Percentage of Vineland pattern 4 = 5%. - Cribriform morphology is absent. D. PROSTATE, BIOPSY, RIGHT LATERAL BASE: High-grade prostatic intraepithelial neoplasia. E. PROSTATE, BIOPSY, RIGHT LATERAL MID: Prostatic adenocarcinoma, Rasheed score 3+4=7 (Grade group 2), involving 85% of one core (10 mm tumor length). - Percentage of Vineland pattern 4 = 10%. - Definitive cribriform morphology is absent. F. PROSTATE, BIOPSY, RIGHT LATERAL APEX: Prostatic adenocarcinoma, Vineland score 3+4=7 (Grade group 2), involving 50% [...] 50.5 Lymph% (%) Date Value 02/12/2022 38.7 Bullock% (%) Date Value 02/12/2022 8.2 Eosin% (%) Date Value 05/28/2021 1.5 Baso% (%) Date Value 02/12/2022 0.5 Abs Neut (k/uL) Date Value 02/12/2022 2.89 Abs Bullock (k/uL) Date Value 02/12/2022 0.47 Abs Eosin [...] appearing, alert, in no acute distress and well- hydrated, well nourished Skin: Skin color, texture, turgor [...] with more than 50% of the total [id number] time of the visit in counseling / coordination of care. Sp Mckeon DO MBA documented in this encounterGreene [facility] Hospital01-18-2023 Miscellaneous Notes* Telephone Encounter - Lillian Clemente MD - 04/24/2022 6:59 AM EST Patient's request for medication is as follows Requested Prescriptions Signed Prescriptions Disp Refills predniSONE (DELTASONE) 5 mg tablet 60 tablet 2 Sig: Take 1 tablet by mouth twice daily. Order entered - please phone pharmacy and notify patient. Lillian Clemente MD documented in this encounterGreene [facility] Hospital01-11-2023 Miscellaneous Notes* Telephone Encounter - Lillian Clemente MD - 04/17/2022 12:39 PM EST Patient's request for medication is as follows Requested Prescriptions Signed Prescriptions Disp Refills predniSONE (DELTASONE) 5 mg tablet 60 tablet 2 Sig: Take 1 tablet by mouth twice daily. Authorizing Provider: LILLIAN CLEMENTE Order entered - please phone pharmacy and notify patient. Lillian Clemente MD documented in this encounterGreene [facility]12-15-2022 Nurse Note* Luther Arthur RN - 03/21/2022 3:56 PM EST Prior auth verified Patient labs reviewed No contraindications identified 03/21/2022 Lot: [id number] Expiration date: 01/2024 Administration location: abdomen left upper Patient education and follow up on AVS Next due date 1 month documented in this encounterGreene [facility] Hospital12-02-2022 History of Present illness Narrative* Derrek Baker PA-C - 03/08/2022 10:49 AM EST In lieu of an in-person visit due to COVID-19 concerns, a distance health was performed on the patient. Patient is aware that I am not fully able to assess symptoms and do a full physical examinationincluding vital signs assessment at this time. Patient consents to this encounter. FOLLOW UP VISIT [id number] DATE OF SERVICE: 03/08/2022 : 1955 REFERRING [...] the results of immunohistochemical stains. The original diagnosesremain unchanged. Immunohistochemical stain for Helicobacter pylori performed on the gastric biopsy is negative (Block A1). The patient notes no new complaints since the procedure. Notes tagamet does not seem to be helping that much to alleviate his GERD and gastritis symptoms. Assessment IMPRESSION: GERD and gastritis, negative for H. Pylori. Normal colonoscopy, family history of coloncancer PLAN: edwin martinez The operative findings and pathology report were reviewed with the patient, and the patient has hadthe opportunity to ask questions and have questions [...] lifestyle modifications as discussed Consider adding carafate [id number]-[id number] will check with Dr. Clemente first Patient [...] the patient/family/caregiver, independently interpreting results (not separately r eported), and communicating results to the patient/family/caregiver. Derrek Baker PA-C documented in this encounterGreene [facility] Hospital11-30-2022 Miscellaneous Notes* Telephone Encounter - Mariangel Baum Ma - 03/06/2022 12:08 PM EST Pt notified and voiced understanding. Mariangel Baum Ma * Telephone Encounter - Mariangel Baum Ma - 03/06/2022 12:07 PM EST ----- Message from Arsalan Ocampo MD sent at 03/06/2022 11:25 AM EST ----- Stomach and esophagus biopsy showed gastritis without cancer or dysplasia. H pylori negative. F/u with Derrek Baker as scheduled. documented in this encounterGreene Memorial Hospital11-23-2022 Nurse Note* Lilibeth Stanton, ERIN - 02/27/2022 9:42 AM EST Pt received in PACU. Pt mildly drowsy, but arouses very easily. Denies pain or nausea. Abd soft andnon distended. Lilibeth Stanton RN documented in this encounterGreene Memorial Hospital11-23-2022 History and physical note * Lyn Mcgowan MD - 02/27/2022 9:00 AM EST UPDATED PROCEDURAL SEDATION HISTORY AND PHYSICAL EXAMINATION SERVICE DATE: 02/27/2022 SERVICE TIME: 8:51 PHYSICAL EXAM MUST BE COMPLETED ON ADMISSION PROCEDURE: EGD and colonoscopy possible biposies Procedure Indications: GERD, history of colon polyps The History and Physical (completed in the past 30 days) has been reviewed and the patient has beenexamined. The contents accurately reflect the patient's condition [...] entered by the nurse and reviewed by vt Nursing Notes: Harika Cortez RN 01/25/2022 9:53 AM Signed REVIEW OF SYSTEMS: General: The patient NOTES fatigue, denies weight loss, denies weight gain, denies feeling hot, anddenies feelings of cold. Eyes: The patient denies [...] back pain/injury, denies back problems, denies sciatica, deniesknee/foot trouble, denies arthritis, or denies gout. When [...] are equally round, sclera are anicteric, mucous membranesare moist, oropharynx is clear. Neck has no [...] patient was offered a surgery/procedure at a [facility]. I have counseled the patient regarding the [...] wishes. I have explained that with IV conscioussedation there is no anesthesia provider available and therefore there is a limitation of the amount of IV medications that can be given and that the patient may wake up in the middle of the procedure and/or experience pain/discomfort during the procedure. Further discussion was done and the patient was given the opportunity to ask questions and all questions were answered. The patient chooses IVconscious sedation Diagnoses: (Z86.010) History of colonic polyps (primary encounter diagnosis) (Z12.11) Screening for colon cancer (R10.13) Epigastric pain (K21.9) Gastroesophageal reflux disease, unspecified whether esophagitis present (Z86.2) History of anemia (C61) Prostate cancer (HCC) Consultation requested by Dr. Ocampo for an opinion regarding surveillance colonoscopy. My final recommendations will be communicated back to the requesting physician by way of shared Medical recordor letter to requesting physician via US mail. Derrek Baker PA-C * Lyn Mcgowan MD - 02/27/2022 9:00 AM EST HISTORY AND PHYSICAL Luther Polanco Jonathan 1955 REFERRING PHYSICIAN: Arsalan Ocampo,* CHIEF COMPLAINT: [...] entered by the nurse and reviewed by vt Nursing Notes: Harika Cortez RN 01/25/2022 9:53 AM Signed REVIEW OF SYSTEMS: General: The patient NOTES fatigue, denies weight loss, denies weight gain, denies feeling hot, anddenies feelings of cold. Eyes: The patient denies [...] back pain/injury, denies back problems, denies sciatica, deniesknee/foot trouble, denies arthritis, or denies gout. When [...] are equally round, sclera are anicteric, mucous membranesare moist, oropharynx is clear. Neck has no [...] patient [facility]. I have counseled the patient [...] wishes. I have explained that with IV conscioussedation there is no anesthesia provider available and therefore there is a limitation of the amount of IV medications that can be given and that the patient may wake up in the middle of the procedure and/or experience pain/discomfort during the procedure. Further discussion was done and the patient was given the opportunity to ask questions and all questions were answered. The patient chooses IVconscious sedation Diagnoses: (Z86.010) History of colonic polyps (primary encounter diagnosis) (Z12.11) Screening for colon cancer (R10.13) Epigastric pain (K21.9) Gastroesophageal reflux disease, unspecified whether esophagitis present (Z86.2) History of anemia (C61) Prostate cancer (HCC) Consultation requested by Dr. Ocampo for an opinion regarding surveillance colonoscopy. My final recommendations will be communicated back to the requesting physician by way of shared Medical recordor letter to requesting physician via US mail. Derrek Baker PA-C documented in this encounterGreene Memorial Hospital11-17-2022 Nurse Note* Stephanie Duron RN - 02/21/2022 10:02 AM EST The patient is here for an injection of Xgeva Dose: 120 mg Route: Subcutaneous Lot# [id number] Expiration date [facility]: 46055-032-66 Given without incident. Site: left arm Dr. Snow present in clinic at time of injection. The date due for the next injection is 1 month Patient education was given by nurse. Stephanie Duron RN documented in this encounterGreene Memorial Hospital11-10-2022 History of Present illness Narrative* Lillian Clemente MD - 02/14/2022 10:26 AM EST PATIENT NAME: Luther Castillo. CLINIC NO: [id number]. ATTENDING PHYSICIAN: Lillian Clemente MD. DATE OF SERVICE: 02/14/2022. 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 Since a year ago his PSA has increased from 2 to 29. He has no urinary symptoms including hematuria or dysuria. He has no fever or chills. He saw urology, Dr. Varghese on April 10 and subsequent prostatebiopsy on April 19. MRI prostate showed cancer [...] Sclerae white, conjunctivae pink. PEERL. EOMs are intact.Oropharynx is benign. LYMPHATICS: There is no palpable [...] Abs Lymph 1.00 - 4.00 k/uL 2.22 Bullock% % 8.2 Abs Bullock <0.87 k/uL 0.47 Eosin% % 1.9 Abs [...] new diagnosis of metastatic prostate cancer (M1) Vineland score 7 & PSA 27; low- volume bone metastasis and no visceral metastasis. 1) [...] with more than 50% of the total qnne-ea-cmgm time of the visit in counseling / coordination of care. Portions of this documentation were copied and pasted from previous office visit notes in order to provide a cohesive continuity of the history. The note has been reviewed and edited and updated as necessary. Lillian Clemente MD Cc: MD Sp Scott DO documented in this encounterGreene Memorial Hospital10-17-2022 Miscellaneous Notes* Telephone Encounter - Lillian Clemente MD - 01/21/2022 8:17 AM EDT Patient's request for medication is as follows Requested Prescriptions Signed Prescriptions Disp Refills predniSONE (DELTASONE) 5 mg tablet 60 tablet 2 Sig: TAKE 1 TABLET BY MOUTH TWICE DAILY Authorizing Provider: LILLIAN CLEMENTE Order entered - please phone pharmacy and notify patient. Lillian Clemente MD documented in this encounterGreene Memorial Hospital09-08-2022 Nurse Note* Stephanie Duron RN - 12/13/2021 2:49 PM EDT The patient is here for an injection of Xgeva Dose: 120 mg Route: Subcutaneous Lot# [id number] Expiration date [facility]: 33688-892-37 Given without incident. Site: left arm and right arm Dr. Mckeon present in clinic at time of injection. The date due for the next injection is 1 month Patient education was given by nurse. Stephanie Duron RN documented in this encounterGreene Memorial Hospital08-19-2022 Instructions* Patient Instructions* Jessy Chase RN - 11/23/2021 9:56 AM EDT AFTERCARE CRYOTHERAPY The skin s response to cryosurgery (freezing) can be mild to more severe, depending on the depth ofthe freeze and location of the area treated. [...] Pat dry and apply a thin film ofvaseline. Do this at least once a day [...] 3 to 4 weeks. documented in this encounterGreene Memorial Hospital08-19-2022 History of Present illness Narrative* Richie Dejesus MD - 11/23/2021 9:30 AM EDT Patient presents with: Full Body Skin Check RELEVANT DERMATOLOGY HISTORY: Personal Hx of skin cancer: ~ basal cell CA - 8/06/25, Mid Chest - ED&C ~ squamous cell [...] 120 mg SUBCUTANEOUS q 4 WEEKS Sp Mckeon, 120 mg at 11/15/21 1020 HISTORIES FAMILY [...] Normal. Lids/external - Right: Normal, Left: Normal. Sclera- Right: Normal, Left: Normal. Ears: Inspection -Right: Normal, Left: Normal. Palpation - Right: Normal, Left: Normal. Pinna - Right: Normal, Left: Normal. Nasopharynx: External nose - Normal. Nares - Right: Normal, Left: Normal. Lips/gums - Normal. Tongue - Normal. Buccal mucosa - Normal. Breath odor - None. Neck Exam: Inspection - Normal. Palpation - Normal. Range of motion - Normal. Lymph Detail: Occipital/Postauricular/Preauricular/Submental/Submandibular/Anterior cervical/Posterior cervical/Supraclavicular/Axillary: No lymphadenopathy Breast: Inspection - [...] in apparent distress Luther Castillo Medical Record: [id number] Date: 11/23/2021 Procedure: Cryosurgery The risks, benefits [...] by Judit Garcia MA acting as scribe forRichie Dejesus MD. November 23, 2021 6:16 AM. I agree with the Chief Complaint, ROS, and Past Histories independently gathered by the clinical customer support professional and the remaining scribed note accurately describes my personal service to the patient. Judit Dejesus MD Return to clinic 6 months documented in this encounterGreene Memorial Hospital08-11-2022 Nurse Note* Luther Arthur RN - 11/15/2021 10:48 AM EDT Patient present for Xgeva injection 120mg injected into left upper arm subcutaneously. Lot #[id number] Exp 08/2023 documented in this encounterGreene Memorial Hospital08-09-2022 History of Present illness Narrative* Arsalan Ocampo MD - 11/13/2021 9:06 AM EDT Chief Complaint Patient presents with: Follow Up: [...] and Dr. Baker is being treated with androgendeprivation therapy with Zytiga and Eligard. On Flomax [...] Lymph 1.00 - 4.00 k/uL 1.65 1.22 Bullock% % 7.2 6.1 Abs Bullock <0.87 k/uL 0.34 0.50 Eosin% % 1.5 [...] SURGERY Arsalan Ocampo MD documented in this encounterGreene Memorial Hospital07-07-2022 Nurse Note* Luther Arthur RN - 10/11/2021 9:23 AM EDT The patient is here for an injection of Xgeva Dose: 60mg/1ml Calcium, Total Date Value Ref Range Status 08/24/2021 9.0 8.5 - 10.2 mg/dL Final Last Office Visit was 09/2021 Route: Subcutaneous Given without incident Site: right upper quadrant abdomen Lot number [id number] Expiration Date 08/2023 Dr. Mckeon present in clinic at time of injection The date due for the next injection is 11/11/2021 Luther Arthur RN 9:24 AM October 11, 2021 * Luther Arthur RN - 10/11/2021 9:17 AM EDT Luther Castillo a 66 year old male, [...] 45 mg IM left upper abdomen. Lot Number:[id number] Expiration date:11/2022 Patient tolerated well. FOLLOW UP: Next Dose: 6 months documented in this encounterGreene Memorial Hospital06-01-2022 NoteHNO ID: [id number] Author: Sp Mckeon, DO Service: ? Author Type: Physician Type: Progress Notes Filed: 09/05/2021 10:48 AM Note Text: ?? [facility] UROLOGY LOCATION: [address] [place] [address] ESTABLISHED PATIENT PATIENT INFO: Luther Castillo 66 [...] scan subsequently confirmed?metastatic disease.???Biopsy of prostate confirmed Vineland 7,?prostate cancer. ? He started androgen deprivation [...] A. PROSTATE, BIOPSY, RIGHT BASE: Prostatic adenocarcinoma, Vineland score 3+4=7 (Grade group 2), involving 60% [...] C. PROSTATE, BIOPSY, RIGHT APEX: Prostatic adenocarcinoma, Vineland score 3+4=7 (Grade group 2), involving 35% of one core (3 mm tumor length). - Percentage of Vineland pattern 4 = 5%. - Cribriform morphology is absent. ? D. PROSTATE, BIOPSY, RIGHT LATERAL BASE: High-grade prostatic intraepithelial neoplasia. ? E. PROSTATE, BIOPSY, RIGHT LATERAL MID: Prostatic adenocarcinoma, Vineland score 3+4=7 (Grade group 2), involving 85% of one core (10 mm tumor length). - Percentage of Rasheed pattern 4 = 10%. - Definitive cribriform morphology is absent. ? F. PROSTATE, BIOPSY, RIGHT LATERAL APEX: Prostatic adenocarcinoma, Rasheed score 3+4=7 (Grade group 2), involving 50% of one core (6.5 mm tumor length). - Percentage of Vineland pattern 4 = 5%. - Cribriform morphology [...] 77.7 Lymph% (%) Date Value 08/24/2021 14.8 Bullock% (%) Date Value 08/24/2021 6.1 Eosin% (%) Date Value 05/28/2021 1.5 Baso% (%) Date Value 08/24/2021 0.1 Abs Neut (k/uL) Date Value 08/24/2021 6.41 Abs Bullock (k/uL) Date Value 08/24/2021 0.50 Abs Eosin (k/uL) Date Value 08/24/2021 0.07 Abs Baso (k/uL) Date Value 08/24/2021 <0.03 Creatinine Date Value Ref Range Status 08/24/2021 0.98 0.73 - 1.22 mg/dL Final (more content not included)...[facility]06-01-2022 History of Present illness Narrative* Sp Mckeon DO - 09/05/2021 10:38 AM EDT Images from the original note were not included. [facility] UROLOGY LOCATION: [address] [place] [address] ESTABLISHED PATIENT PATIENT INFO: Luther Castillo 66 [...] April 19. MRI prostate showed cancer of prostatewith capsular invasion some likely metastases to the pelvic bone region. His bone scan subsequentlyconfirmed metastatic disease. Biopsy of prostate confirmed Vineland 7, prostate cancer. He started androgen deprivation [...] PROSTATE, BIOPSY, RIGHT LATERAL MID: Prostatic adenocarcinoma, Vineland score 3+4=7 (Grade group 2), involving 85% of one core (10 mm tumor length). - Percentage of Rasheed pattern 4 = 10%. - Definitive cribriform morphology is absent. F. PROSTATE, BIOPSY, RIGHT LATERAL APEX: Prostatic adenocarcinoma, Vineland score 3+4=7 (Grade group 2), involving 50% [...] 77.7 Lymph% (%) Date Value 08/24/2021 14.8 Bullock% (%) Date Value 08/24/2021 6.1 Eosin% (%) Date Value 05/28/2021 1.5 Baso% (%) Date Value 08/24/2021 0.1 Abs Neut (k/uL) Date Value 08/24/2021 6.41 Abs Bullock (k/uL) Date Value 08/24/2021 0.50 Abs Eosin [...] appearing, alert, in no acute distress and well- hydrated, well nourished Skin: Skin color, texture, turgor [...] with more than 50% of the total bimi-hs-bkxr time of the visit in counseling / coordination of care. Sp Mckeon DO MBA documented in this encounterGreene Memorial Hospital05-31-2022 Instructions* Patient Instructions* MARGARITA Inman - 09/04/2021 2:32 PM EDT You can resume Omeprazole. documented in this encounterSelect [facility] [place] History of Present illness Narrative* MARGARITA Inman - 09/04/2021 1:00 PM EDT Reason for visit: Luther Castillo is a 66 y.o. male who presents to our Medical Oncology Clinic for a second opinion for his metastatic prostate cancer. HPI: Mr. Castillo was initially seen by [facility]) urologist, Dr. Nixon for PSA rise from 2 in 01/2020 to 24.8 ng/ml in 03/2021. MRI prostate 04/04/2021 showed PI-RADS 5 lesion right peripheral mid apex with equivocal extra prostatic extension and likely metastases to the pelvic bone region. Prostate biopsy in 04/10/2021 adenocarcinoma of prostate, highest GS 4+3=7(group 3), 6/12 cores, 5- 90% of specimen, +cribiform pattern,-intraductal. Bone scan on [...] therapy with Abiraterone/prednisone+ leuprolide acetate 45 mg every6 months + denosumab 120 mg monthly in 04/2021. Most recently underwent repeat bone scan on 08/24/2021 with improvement in appearance of multiple osseous lesions. Most recent PSA 0.07 ng/mL on 08/24/2021. He follows [facility] hematology/oncology([place], [place]) Lillian Clemente MD for low grade MDS. [...] Father age 91 Sister Alive Sister Alive PUn MGF (Not Specified) PGF Son Alive Son [...] and sputum production. Is not experiencing shortness ofbreath or wheezing. Gastrointestinal: Negative for nausea, vomiting, abdominal pain, diarrhea, constipation, blood in stool, melena and trouble swallowing. + heartburn/acid reflux Genitourinary: Negative for bladder incontinence, dysuria, urgency, polyuria, hematuria, flank painand hesitancy. + increased urinary frequency. + nocturia [...] oz). His oral temperature is 98.4 F (36.9C). His blood pressure is 126/67 and his [...] (8 mm tumor length). - Percentage of Vineland pattern 4 = 20%. - Expansile cribriform morphology is present. B. PROSTATE, BIOPSY, RIGHT MID: Prostatic adenocarcinoma, Vineland score 4+3=7 (Grade group 3), involving 90% of one core (10 mm tumor length). - Percentage of Vineland pattern 4 = 90%. - Expansile cribriform morphology is present. C. PROSTATE, BIOPSY, RIGHT APEX: Prostatic adenocarcinoma, Vineland score 3+4=7 (Grade group 2), involving 35% of one core (3 mm tumor length). - Percentage of Vineland pattern 4 = 5%. - Cribriform morphology is absent. D. PROSTATE, BIOPSY, RIGHT LATERAL BASE: High-grade prostatic intraepithelial neoplasia. E. PROSTATE, BIOPSY, RIGHT LATERAL MID: Prostatic adenocarcinoma, Rasheed score 3+4=7 (Grade group 2), involving 85% of one core (10 mm tumor length). - Percentage of Vineland pattern 4 = 10%. - Definitive cribriform morphology is absent. F. PROSTATE, BIOPSY, RIGHT LATERAL APEX: Prostatic adenocarcinoma, Rasheed score 3+4=7 (Grade group 2), involving 50% of one core (6.5 mm tumor length). - Percentage of Rasheed pattern 4 = 5%. - Cribriform morphology is absent. G. PROSTATE, BIOPSY, LEFT BASE: Prostatic adenocarcinoma, Vineland score 3+3=6 (Grade group 1), involving 4% [...] Discussed with pharmacist ok to restart PPI. Yasmine Worley APRN-JOI * Jazlyn Lombardi III, MD - 09/04/2021 1:00 PM EDT Attending addendum I saw and evaluated the [...] Mr. Castillo who was recently diagnosed with deNovo high volume mCSPC. He is tolerating the [...] Referral to cancer genetics. documented in this encounterSelect [facility] [place]-25-2022 Miscellaneous Notes* Telephone Encounter - RAJ Feliz - 08/29/2021 4:26 PM EDT SOCIAL WORK DISTRESS ASSESSMENT Referral made due [...] NA External: N/A Follow up appointment with SW in: PRN SW spoke with patient on this day to [...] RAJ Feliz Assessment Completed documented in this encounterGreene Memorial Hospital05-24-2022 History of Present illness Narrative* Lillian Clemente MD - 08/28/2021 12:08 PM EDT PATIENT NAME: Luther Castillo. CLINIC NO: [id number]. ATTENDING PHYSICIAN: Lillian Clemente MD. DATE OF SERVICE: 08/28/2021. 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 Since a year ago his PSA has increased from 2 to 29. He has no urinary symptoms including hematuria or dysuria. He has no fever or chills. He saw urology, Dr. Varghese on April 10 and subsequent prostatebiopsy on April 19. MRI prostate showed cancer of prostate with capsular invasion some likely metastases to the pelvic bone region. His bone scan subsequently confirmed metastatic disease. Biopsy of prostate confirmed Vineland 7, prostate cancer. He started androgen deprivation [...] Sclerae white, conjunctivae pink. PEERL. EOMs are intact.Oropharynx is benign. LYMPHATICS: There is no palpable [...] Abs Lymph 1.00 - 4.00 k/uL 1.22 Bullock% % 6.1 Abs Bullock <0.87 k/uL 0.50 Eosin% % 0.8 Abs [...] new diagnosis of metastatic prostate cancer (M1) Vineland score 7 & PSA 27; low- volume bone metastasis and no visceral metastasis. 1) [...] with more than 50% of the total pupk-vy-asaa time of the visit in counseling / coordination of care. Portions of this documentation were copied and pasted from previous office visit notes in order to provide a cohesive continuity of the history. The note has been reviewed and edited and updated as necessary. Lillian Clemente MD. ELECTRONICALLY SIGNED Cc: Dr. Arsalan Mckeon, documented in this encounterGreene Memorial Hospital05-20-2022 History of Present illness Narrative* RT Augustine(R) - 08/24/2021 9:30 AM EDT RADIOLOGY SERVICE PROGRESS NOTE SERVICE DATE: 08/24/2021 [...] creatinine assay has traceable calibration to isotope dilution- mass spectrometry. Refer to KDIGO guidelines for clinical interpretation. In patients with unstable renal function, e.g. those with acute kidney injury, the eGFRmay not accurately reflect actual GFR. eGFR- Date [...] information regarding radiation safety can be found usingthis link: [email or web address] SIGNATURE: RT Augustine(R) PATIENT NAME: Luther Castillo DATE: August 24, 2021 TIME: 12:52 PM PAGER/CONTACT #: documented in this encounterGreene Memorial Hospital05-12-2022 Nurse Note* Stephanie Duron RN - 08/16/2021 2:34 PM EDT The patient is here for an injection of Xgeva Dose: 120 mg Route: Subcutaneous Lot# [id number] Expiration date Given without incident. Site: left arm Dr. Mckeon present in clinic at time of injection. The date due for the next injection is 1 month Patient education was given by nurse. Stephanie Duron RN documented in this encounterGreene Memorial Hospital04-20-2022 Miscellaneous Notes* Telephone Encounter - Soraya Bishop Cma - 07/25/2021 9:02 AM EDT Sorry I put the wrong provider for this call he is a dr mckeon patient * Telephone Encounter - Soraya Bishop Cma - 07/25/2021 8:59 AM EDT Patient phones requesting refills as follows: Pending Prescriptions Disp Refills TAMSULOSIN 0.4 MG CAPSULE 90 capsule 5 Sig: Take 1 capsule by mouth once daily. JESUS: No Please review and advise. Soraya Bishop Cma documented in this encounterGreene Memorial Hospital04-18-2022 Miscellaneous Notes* Telephone Encounter - Lillian Clemente MD - 07/23/2021 3:06 PM EDT Patient's request for medication is as follows Signed Prescriptions Disp Refills predniSONE (DELTASONE) 5 mg tablet 60 tablet 2 Sig: Take 1 tablet by mouth twice daily. JESUS: No Authorizing Provider: LILLIAN CLEMENTE Order entered - please phone pharmacy and notify patient. Lillian Clemente MD * Telephone Encounter - Natalya Dorsey RN - 07/23/2021 2:57 PM EDT Physician: Dr. Clemente Call from patient requesting refill. Please E-Scribe Pending Prescriptions Disp Refills PREDNISONE 5 MG TABLET 60 tablet 2 Sig: Take 1 tablet by mouth twice daily. JESUS: No To [facility] in [place] Natalya Dorsey RN [facility] Miscellaneous Notes* Telephone Encounter - Nika Roach Pss - 07/23/2021 1:44 PM EDT Patient has been identified by name and date of : Yes Last office visit in this department: Visit date not found RX INSTRUCTIONS: Pharmacy initiated this request. No need to notify patient. Patient phones requesting refills as follows: Pending Prescriptions Disp Refills ABIRATERONE 250 MG TABLET 120 tablet 0 JESUS: No Please review and advise. Nika Roach Pss documented in this encounterGreene [facility]04[facility]14-[facility]22 Nurse Note* Luther Arthur RN - 07/19/2021 10:10 AM EDT Patient presents for monthly XGEVA injection Injection in right upper abdomen Lot#[id number] Exp 08/2023 documented in [facility] Miscellaneous Notes* Telephone Encounter - Stephanie Duron RN - 07/17/2021 12:55 PM EDT NO AUTHORIZATION REQUIRED Per [facility] Registration, patient has Medicare Part B as primary insurance. No authorization required.Coverage of services is always based on medical necessity. Good for Sharmila on . * Telephone Encounter - Stephanie Duron RN - 07/17/2021 10:21 AM EDT Sent Email as well looking at status. * Telephone Encounter - Stephanie Duron RN - 07/13/2021 2:41 PM EDT Patient's insurance changed to Medicare A & B and that should not require a Prior Auth but doing a referral to make sure as patient has had insurance problems. Assigned referral. [place] [id number] Miscellaneous Notes* Telephone Encounter - Sahara Mcneill LPN - 07/06/2021 12:30 PM EDT Pharmacies updated in [facility]. Thank you. Medication note added to [facility]. Sahara Mcneill LPN * Telephone Encounter - Natalya Dorsey RN - 07/06/2021 11:12 AM EDT Patient calls and states that he has changed insurance and [facility] will need to now go through ([phone]). He was told to call and let us know. He just received a refill and won't need another until the end of July. He would like a phone call when we do send out to [facility] so that he can reach out to them for more information about shipping/delivery. And, as an FYI, his retail pharmacy will change to [facility] in [place]. I asked him to remind uswhen he calls in for refills. Krista Willian, RN documented in this encounterGreene [facility]03-31-2022 Miscellaneous Notes* Telephone Encounter - Lillian Clemente MD - 07/05/2021 12:22 PM EDT Patient's request for medication is as follows Signed Prescriptions Disp Refills abiraterone 250 mg tablet 120 tablet 0 Sig: TAKE 4 TABLETS BY MOUTH ONCE DAILY ON AN EMPTY STOMACH AT LEAST 1 HOUR BEFORE OR 2 HOURS AFTEREATING. JESUS: No Authorizing Provider: LILLIAN CLEMENTE Order entered - please phone pharmacy and notify patient. Lillian Clemente MD documented in this encounterGreene [facility]04-[facility] History of Past illness Narrative* Problem [...] of this encounter (statuses as of 07/05/2021) [facility] Narrative* Problem [...] of this encounter (statuses as of 07/06/2021) [facility] Narrative* Problem [...] of this encounter (statuses as of 07/17/2021) [facility] Narrative* Problem [...] of this encounter (statuses as of 07/19/2021) [facility] Narrative* Problem [...] of this encounter (statuses as of 07/23/2021) [facility] Narrative* Problem [...] of this encounter (statuses as of 07/23/2021) [facility] Narrative* Problem [...] of this encounter (statuses as of 07/24/2021) [facility]ative* Problem [...] of this encounter (statuses as of 07/25/2021) [facility] Narrative* Problem [...] of this encounter (statuses as of 08/16/2021) [facility] Narrative* Problem [...] of this encounter (statuses as of 08/25/2021) [facility] Narrative* Problem [...] of this encounter (statuses as of 08/25/2021) [facility]* Problem [...] of this encounter (statuses as of 08/29/2021) [facility]ative* Problem [...] of this encounter (statuses as of 08/29/2021) [facility]* Problem [...] of this encounter (statuses as of 09/05/2021) [facility]* Problem [...] of this encounter (statuses as of 10/05/2021) [facility] Narrative* Problem [...] of this encounter (statuses as of 10/11/2021) [place] [id number] History of Past illness Narrative* Problem Noted [...] of this encounter (statuses as of 11/13/2021) [facility]* Problem [...] of this encounter (statuses as of 11/15/2021) [facility]* Problem [...] of this encounter (statuses as of 11/23/2021) [facility]* Problem [...] of this encounter (statuses as of 12/13/2021) [facility]* Problem [...] of this encounter (statuses as of 01/02/2022) [facility]* Problem [...] of this encounter (statuses as of 01/21/2022) [facility]* Problem [...] of this encounter (statuses as of 01/22/2022) [facility]* Problem [...] of this encounter (statuses as of 02/15/2022) [facility]* Problem [...] of this encounter (statuses as of 02/21/2022) [facility]* Problem [...] of this encounter (statuses as of 03/06/2022) [facility]* Problem [...] of this encounter (statuses as of 03/16/2022) [facility]* Problem [...] of this encounter (statuses as of 03/21/2022) [facility]* Problem [...] of this encounter (statuses as of 04/17/2022) [facility]* Problem [...] of this encounter (statuses as of 04/24/2022) [facility]* Problem [...] of this encounter (statuses as of 05/07/2022) [facility] Problem [...] of this encounter (statuses as of 05/08/2022) [facility] Problem [...] of this encounter (statuses as of 05/17/2022) [facility]* Problem [...] of this encounter (statuses as of 06/14/2022) [facility] Problem [...] of this encounter (statuses as of 08/01/2022) [facility]* Problem [...] of this encounter (statuses as of 08/19/2022) [facility]* Problem [...] of this encounter (statuses as of 08/19/2022) [facility]* Problem [...] of this encounter (statuses as of 09/12/2022) [facility] Problem [...] of this encounter (statuses as of 09/26/2022) [facility] Problem [...] of this encounter (statuses as of 10/01/2022) [facility]* Problem [...] of this encounter (statuses as of 10/14/2022) [facility] Problem [...] of this encounter (statuses as of 10/24/2022) [facility]* Problem [...] of this encounter (statuses as of 11/21/2022) [facility] Problem [...] of this encounter (statuses as of 11/21/2022) [facility] Problem [...] of this encounter (statuses as of 11/27/2022) [facility] Problem [...] of this encounter (statuses as of 12/02/2022) [facility] Problem [...] of this encounter (statuses as of 12/19/2022) [facility] Problem [...] of this encounter (statuses as of 01/16/2023) [facility] Problem [...] of this encounter (statuses as of 01/16/2023) [facility] Problem [...] of this encounter (statuses as of 01/16/2023) [facility] Problem [...] of this encounter (statuses as of 01/21/2023) [facility] Problem [...] of this encounter (statuses as of 02/09/2023) [facility] Problem [...] of this encounter (statuses as of 02/13/2023) [facility] Problem [...] of this encounter (statuses as of 02/19/2023) [facility] Problem [...] of this encounter (statuses as of 03/13/2023) [facility] Problem [...] of this encounter (statuses as of 03/18/2023) [facility] Problem [...] of this encounter (statuses as of 03/19/2023) [facility] Problem [...] of this encounter (statuses as of 03/28/2023) [facility] Problem [...] of this encounter (statuses as of 05/08/2023) [facility] Problem [...] of this encounter (statuses as of 05/16/2023) [facility] Problem [...] of this encounter (statuses as of 06/05/2023) [facility] Problem [...] of this encounter (statuses as of 06/11/2023) [facility] Problem [...] of this encounter (statuses as of 06/12/2023) [facility] Problem [...] of this encounter (statuses as of 06/16/2023) [facility] Problem [...] of this encounter (statuses as of 06/18/2023) [facility] Problem [...] of this encounter (statuses as of 06/18/2023) [facility]* Problem [...] of this encounter (statuses as of 06/18/2023) [facility]* Problem [...] of this encounter (statuses as of 06/19/2023) [facility] No data available for this section [facility]* Diagnosis Prostate cancer metastatic to bone (HCC) documented [facility] encounter [facility]* Diagnosis Prostate cancer (HCC) Malignant neoplasm of prostate documented [facility] encounter [facility]* Diagnosis 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) documented [facility] encounter [facility]* Diagnosis Prostate cancer metastatic to bone (HCC) [facility] Diagnosis 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 and other lower urinary tract symptoms (LUTS) documented [facility] this encounter [facility]* Diagnosis Prostate cancer (HCC)- Primary Malignant neoplasm of prostate [facility]* Diagnosis Prostate cancer metastatic to bone (HCC) Malignant neoplasm of prostate (HCC) Malignant neoplasm of prostate [facility] Diagnosis 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) Bone metastasis (HCC) Secondary malignant neoplasm of bone and bone marrow documented [facility] this encounter [facility]* Diagnosis BPH with elevated PSA Hypertrophy of prostate without urinary obstruction and other lower urinary tract symptoms (LUTS) documented [facility] this encounter [facility]* Diagnosis Prostate cancer- Primary Malignant neoplasm of prostate [facility]* Diagnosis Prostate cancer (HCC) Malignant neoplasm of prostate [facility]* Diagnosis Prostate cancer (HCC)- Primary Malignant [...] malignant neoplasms, colon documented [facility]* Diagnosis Prostate cancer (HCC)- Primary Malignant neoplasm of prostate [facility]* Diagnosis Notalgia paresthetica- Primary Disturbance of skin sensation Actinic keratosis Seborrheic keratosis Other seborrheic keratosis Cabrera angioma Nevus, non-neoplastic Lentigines Other dyschromia Multiple benign nevi Benign neoplasm of skin, site unspecified Personal history of skin cancer Personal history of other malignant neoplasm of skin [facility]* Diagnosis Malignant neoplasm of prostate (HCC)- Primary Malignant neoplasm of prostate Prostate cancer (HCC) Malignant neoplasm of prostate [facility]* Diagnosis 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 [...] [facility] in [facility] ([facility]CC)- Primary Malignant neoplasm of prostate [facility] Chronic superficial gastritis without bleeding- [...] neoplasm of prostate [facility] Seborrheic keratosis- Primary Other seborrheic keratosis Cabrera angioma Nevus, non-neoplastic Lentigines Other dyschromia Multiple benign nevi Benign neoplasm of skin, site unspecified Actinic keratosis Personal history of skin cancer Personal history of other malignant neoplasm of skin Senile purpura (HCC) Other nonthrombocytopenic purpuras [facility] Diagnosis Hemorrhoids, unspecified hemorrhoid type- Primary Perianal cyst Other specified disorder of rectum and anus [facility] Prostate cancer (HCC)- Primary Malignant neoplasm of prostate [facility] Diagnosis Prostate cancer metastatic to bone (HCC) [facility] Screening for colon cancer- Primary Special screening for malignant neoplasms, colon History of colon polyps Personal history of colonic polyps Epigastric pain Abdominal pain, epigastric Gastroesophageal reflux disease, unspecified whether esophagitis present History of anemia Personal history of diseases of blood and blood-forming organs [facility] Diagnosis Prostate cancer (HCC)- Primary Malignant neoplasm of prostate [facility] Diagnosis 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 [facility] Diagnosis Prostate cancer (HCC)- Primary Malignant neoplasm of prostate [facility] Diagnosis Hyperlipidemia, mixed- Primary Mixed hyperlipidemia [facility] [...] [facility] Diagnosis SOB (shortness of breath)- Primary Shortness of breath Chest pain, unspecified type Acute left-sided low back pain, unspecified whether sciatica present [facility] Diagnosis SOB (shortness of breath) Shortness of breath Chest pain, unspecified type [facility] Diagnosis 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 Prostate cancer (HCC) Malignant neoplasm of prostate [facility] Diagnosis 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 [facility]* Diagnosis Prostate cancer (HCC)- Primary Malignant neoplasm of prostate 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 [facility] Diagnosis Prostate cancer (HCC)- Primary Malignant neoplasm of prostate 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 [facility] Diagnosis Prostate cancer (HCC)- Primary Malignant neoplasm of prostate [facility] Diagnosis Prostate cancer metastatic to bone (HCC) [facility] Diagnosis SOB (shortness of breath)- Primary Shortness of breath Abnormal ECG Nonspecific abnormal electrocardiogram (ECG) (EKG) Chest pain, unspecified type Mixed hyperlipidemia [facility] Diagnosis Prostate cancer metastatic to [...] [facility] Diagnosis SOB (shortness of breath) Shortness of breath Abnormal ECG Nonspecific abnormal electrocardiogram (ECG) (EKG) Chest pain, unspecified type Mixed hyperlipidemia [facility] Diagnosis 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 and other lower urinary tract symptoms (LUTS) [facility]* Diagnosis 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 Prostate cancer (HCC) Malignant neoplasm of prostate [facility]* Diagnosis Xerosis cutis- Primary Other specified disease of sebaceous glands Actinic keratosis Seborrheic keratosis Other seborrheic keratosis Lentigines Other dyschromia Cabrera angioma Nevus, non-neoplastic Multiple benign nevi Benign neoplasm of skin, site unspecified Personal history of skin cancer Personal history of other malignant neoplasm of skin [facility]* Diagnosis Prostate cancer metastatic to bone (HCC)- Primary Abdominal pain, unspecified abdominal location Acute left-sided low back pain, unspecified whether sciatica present documented [facility]* Diagnosis Prostate cancer metastatic to bone (HCC) Abdominal pain, unspecified abdominal location Acute left-sided low back pain, unspecified whether sciatica present [facility]* Diagnosis Prostate cancer (HCC)- Primary Malignant neoplasm of prostate 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 [facility] Diagnosis SOB (shortness of breath) Shortness of breath Chest pain, unspecified type documented [facility] this encounter [facility]* Diagnosis Left hip pain- Primary Pain in joint, pelvic region and thigh documented [facility] encounter [facility]* Diagnosis Left hip pain Pain in joint, pelvic region and thigh [facility]* Diagnosis 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 Prostate cancer (HCC) Malignant neoplasm of prostate [facility]* Diagnosis Right hip pain- Primary Pain in joint, pelvic region and thigh Prostate cancer (HCC) Malignant neoplasm of prostate 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 [facility] Diagnosis Left hip pain- Primary Pain in joint, pelvic region and thigh Radiculopathy, lumbar region Thoracic or lumbosacral neuritis or radiculitis, unspecified Decreased ROM of lumbar spine Weakness of trunk musculature Muscle weakness (generalized) [facility]* Diagnosis Left inguinal pain- Primary Abdominal pain, left lower quadrant Spinal stenosis of lumbar region, unspecified whether neurogenic claudication present Left inguinal pain Abdominal pain, left lower quadrant [facility] Left inguinal pain Abdominal pain, left lower quadrant [facility] Diagnosis 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 [facility]* Diagnosis Left hip pain- Primary Pain in joint, pelvic region and thigh Radiculopathy, lumbar region Thoracic or lumbosacral neuritis or radiculitis, unspecified Decreased ROM of lumbar spine Weakness of trunk musculature Muscle weakness (generalized) documented [facility]* Diagnosis Left hip pain- Primary Pain in joint, pelvic region and thigh Radiculopathy, lumbar region Thoracic or lumbosacral neuritis or radiculitis, unspecified Decreased ROM of lumbar spine Weakness of trunk musculature Muscle weakness (generalized) [facility] 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 Prostate cancer (HCC) Malignant neoplasm of prostate [facility] Left hip pain- Primary Pain in joint, pelvic region and thigh Radiculopathy, lumbar region Thoracic or lumbosacral neuritis or radiculitis, unspecified Decreased ROM of lumbar spine Weakness of trunk musculature Muscle weakness (generalized) [facility] Diagnosis Left hip pain- Primary Pain in joint, pelvic region and thigh Radiculopathy, lumbar region Thoracic or lumbosacral neuritis or radiculitis, unspecified Decreased ROM of lumbar spine Weakness of trunk musculature Muscle weakness (generalized) [facility] Diagnosis Left hip pain- Primary Pain in joint, pelvic region and thigh Radiculopathy, lumbar region Thoracic or lumbosacral neuritis or radiculitis, unspecified Decreased ROM of lumbar spine Weakness of trunk musculature Muscle weakness (generalized) [facility] Diagnosis Left hip pain- Primary Pain [...] Primary Routine general medical examination at a [facility] care facility Screening for depression documented in [...] myelodysplastic syndrome lesions [facility] Diagnosis 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 [facility] Diagnosis 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 and skin of neck [facility] Diagnosis 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 [facility]* Diagnosis Prostate cancer (HCC)- Primary Malignant neoplasm of prostate 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 [facility]* Diagnosis Prostate cancer (HCC)- Primary Malignant neoplasm of prostate 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) [facility]* Diagnosis Vitamin D deficiency- Primary Unspecified vitamin D deficiency Iron deficiency Iron deficiency anemia, unspecified SOB (shortness of breath) Shortness of breath Mixed hyperlipidemia [facility]* Diagnosis Prostate cancer (HCC)- Primary Malignant neoplasm of prostate 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 [facility]* Diagnosis Prostate cancer (HCC)- Primary Malignant neoplasm of prostate [facility] Diagnosis Onset Date Resolution Status Admit Date Acute kidney injury acute September 18, 2024 3:12pm Sepsis acute September 18 3:12pm [facility] Work Phone: Evaluation note* Diagnosis 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 [facility]* Diagnosis Prostate cancer metastatic to bone (HCC) [facility]* Diagnosis Non-healing surgical wound, subsequent encounter- Primary Hx of nonmelanoma skin cancer Personal history of other malignant neoplasm of skin Encounter for post surgical wound check [facility]* Diagnosis Cholangitis (HCC)- Primary Cholangitis 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) [facility] Diagnosis Prostate cancer metastatic to bone (HCC) [facility] Diagnosis 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 [facility] Diagnosis Open wound of scalp, unspecified open wound type, initial encounter- Primary Wound dehiscence Disruption of external operation (surgical) wound [facility] Diagnosis Sepsis with acute organ dysfunction and septic shock, due to unspecified organism, unspecified organ dysfunction type (HCC)- Primary Cholangitis (HCC) Cholangitis [facility] Author Ivan Nugent [facility] Note Date/Time September 18, 2024 4:20 pm [facility] Medical Records Department [address] [place] [address] H&P Exam - Hospitalist 09/18/24 1601 MR#: [id number] Acct: [id number] Name: LUTHER CASTILLO II Rep #:[id number] : 1955 69 From: Ivan quinn MD PCP: Dr. López Ocampo MD Status :ADM IN Location: ICU ICU03-1 HPI - General General Date of Admission: 09/18/24 HPI Narrative LUTHER CASTILLO, is a 69 M who presents to the hospital with dizziness and hypotension. He has a history of stage IV prostate cancer with mets to the bonethat he is currently on immunotherapy and hormonal therapy for. Both time he found that it was already metastatic so he has not undergone a prostatectomy. He has been having headaches for the last 3 weeks but they think that is due to his recent Mohs surgery that has not healed on his scalp. That area does not appear infected. He does not have a leukocytosis and he presented with an STACI to 2.13. He is also had a lactic acidosis of 2.3 and was given several fluid boluses in the emergency room. No obvious signs of infection at the moment, UA is unremarkable as is chest x-ray. He does have an elevated alk phos which is likely due to his bone mets but does also have an elevated total bilirubin at 1.7 sick and he does have some scleral icterus. Initially when he presented to the hospital his systolic blood pressures were in the 50s with a MAP of 41, currently on my evaluation his MAP is 67 with a systolic blood pressure of 102. He started feeling unwell yesterday though given the severity of his vital signson arrival he has likely been sick for several days that was just asymptomatic secondary to his immunocompromise state. He is chronically on steroids and is unable to compensate. [facility] Medical History (Updated 09/18/24 @ 15:[address] Augustin Carney MD) Dizziness Home Medications ?Medication ?Instructions ?Recorded ?Last Taken ?Type abiraterone 250 mg tablet 1,000 mg PO DAILY prostate c ancer 12/11/23 09/17/24 History atorvastatin 20 mg tablet 20 mg PO QHS cholesterol 08/2809/17/24 History prednisone 5 mg tablet 5 mg PO BID prostate 4 09/17/24 History tamsulosin 0.4 mg capsule 0.4 mg PO DAILY prostate 08/2809/17/24 History cimetidine 200 mg tablet (Tagamet 200 mg PO BID 09/17/24 History HB) leuprolide acetate (6 month) 45 mg 45 mg subcut .COMPL EX 02/05/24 09/15/24 History (6 month) subcutaneous syringe (Eligard) darbepoetin dagmar in polysorbat See Rx Instructions IV .COMPLEX 09/18/24 Unknown History Allergy/AdvReac Type Severity Reaction Status Date / Time No Known Allergies Allergy Verified 09/18/24 12:29 Family History (Updated 09/18/24 @ 16:[address] Ivan Nugent MD) Other Cancer Surgical History (Updated 09/18/24 @ 16:[address] Ivan Nugent MD) Status post Mohs surgery Social History Smoking Status: Never smoker ROS Constitutional Constitutional: Reports fatigue and weakness; Denies chills, fever(s) or malaise Eyes Eyes: Denies blurry vision ENT HEENT: Denies headache(s) or nasal discharge Cardiovascular Cardiovascular: Denies chest pain, dyspnea on exertion or syncope Respiratory/Chest Respiratory/Chest: Denies cough, shortness of breath at rest or shortness of breath with exertion Gastrointestinal Gastrointestinal: Reports nausea; Denies constipation, diarrhea or vomiting Genitourinary Genitourinary: Denies dysuria Neurologic Neurologic: Reports headache(s); Denies focal weakness, numbness or tremor(s) Psychiatric Psychiatric: Denies anxiety or depression Vital Signs Vital Signs Vital Signs: 09/18/24 12:24 09/18/24 12:26 09/18/24 12:42 Temperature 97.8 F Temperature Source Oral Pulse Rate 93 88 Respiratory Rate 18 18 Blood Pressure 56/34 L 56/34 L 80/72 L Blood Pressure Mean 41 41 74 Pulse Ox 97 95 Oxygen Delivery Method Room Air Room Air 09/18/24 13:18 09/18/24 13:51 09/18/24 14:30 Temperature 98.4 F Temperature Source Oral Pulse Rate 87 85 Respiratory Rate 19 H 20 H Blood Pressure 70/51 L 85/53 L Blood Pressure Mean 57 63 Pulse Ox 93 93 Oxygen Delivery Method Room Air Room Air Weight Weight: 148 lb 12.992 oz Body Mass Index (BMI) 22.6 Physical Exam Narrative General: Alert little drowsy, Oriented x3, Cooperative, No apparent distress HEENT: Atraumatic, PERRLA, EOMI, Normocephalic, Mohs surgery on his right scalp dressing intact with fluid collection underneath does not appear infected, no surrounding erythema Oral: Moist Mucosa Neck: Supple, No JVD Lungs: Diminished, Normal air movement, No rhonchi, No wheeze, No rales Cardiovascular: Regular rate, Regular Rhythm, Normal S1, Normal S2, No murmurs Abdomen: Soft, Non Tender, Non-Distended, No Hepato-splenomegaly Extremities: No edema, Capillary Refill Less than 3 Seconds Skin: No rashes, No breakdown Musculoskeletal: No Tenderness to Palpation of Joints or Extremities Neurological: No focal neurological deficits, moves all extremities Psych/Mental Status: Normal Affect, Appropriate Results Lab / Micro Data 09/18/24 12:40 09/18/24 12:40 Labs: Laboratory Results - last 24 hr 09/18/24 12:40: WBC 4.4, RBC 3.63 L, Hgb 8.6 L, Hct 29.3 L, MCV 80.7, MCH 23.7 L, MCHC 29.4 L, RDW Std Deviation 62.0 H, RDW Coeff of Lydia 21.4 H, Plt Count 119 L, MPV 8.8, Immature Gran % (Auto) 0.200, Neut % (Auto) 87.5 H, Lymph % (Auto) 10.7 L, Bullock % (Auto) 0.9, Eos % (Auto) 0.5, Baso % (Auto) 0.2, Absolute Neuts (auto) 3.8, Absolute Lymphs (auto) 0.47 L, Nucleated RBC % 0, Hypochromasia 1+, Anisocytosis 1+, PT 17.7 H, INR 1.4, APTT 36.6 H, Sodium 137, Potassium 4.1, Chloride 102, Carbon Dioxide 20.3 L, Anion Gap 14, BUN 43 H, Creatinine 2.13 H, Estim Creat Clear Calc 30.37 L, Est GFR (MDRD) Non-Af 32 L, BUN/Creatinine Ratio20.1 H, Glucose 75, Calcium 8.6, Total Bilirubin 1.76 H, AST 28, ALT 20, Alkaline Phosphatase 152 H, Troponin T High Sens 47 H, Total Protein 6.1, Albumin3.3 L, Globulin 2.8, Albumin/Globulin Ratio 1.2 09/18/24 13:30: Urine Color Yellow, Urine Clarity Clear, Urine pH 6.0, Ur Specific [place] 1.015, Urine Protein 30 H, Urine Glucose (UA) Normal, Urine Ketones 5 H, Urine Occult Blood 10 H, Urine Nitrite Negative, Urine Bilirubin 1 H, Urine Urobilinogen 1 H, Ur Leukocyte Esterase 25 H, Urine RBC 0 SEEN, Urine WBC 5-10 SEEN, Ur Squamous Epith Cells 0 SEEN, Urine Bacteria 0 SEEN, Hyaline Casts 0-5 SEEN, Urine Mucus 0 SEEN 09/18/24 13:45: Lactic Acid 2.3 H* Micro: Microbiology 09/18/24 13:45 Mucosa - Nose SARS-CoV-2, Influenza & RSV (PCR) - Final Rhythm Strip Rhythm Strip: Sinus Rhythm Rate: 90 Ectopy: None Imaging Radiology Impression Chest X-Ray 09/18/24 13:20 IMPRESSION: No acute process detected. Reading [facility] Assessment & Plan Assessment/Plan (1) Sepsis: (2) Acute kidney injury: PLAN: Plan 1. Severe sepsis of unclear source/STACI ? She received 3 L of fluid in the ER with a beautiful response to his blood pressure ? Continue with IV fluids ? Will administer broad-spectrum antibiotics with Vanco and Zosyn ? Will plan for a CT of the chest abdomen and pelvis with contrast tomorrow if his renal function is improved ? Will add oral prednisone as he takes 5 mg of prednisone twice daily, as a stress dose ? Will have wound care evaluate his Mohs surgical site while here ? Part of his STACI is due to the fact that he has been taking Advil frequently for his headache 2. Metastatic prostate cancer ? He has been having headaches and he did tell his oncologist about it who did not feel that it warranted imaging at this time as they felt that it was relatedto his Mohs surgery, however if this continues would recommend MRI ? Will stress dose of steroids with prednisone ? Will hold his cancer medications 3. Hyperlipidemia ? Can continue his Lipitor ? 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 Continue with Flomax DVT: Heparin Sepsis Attestation Sepsis Attestation: Agree w/Sepsis Date exam was performed: 09/18/24 Time exam was performed: 14:00 Possible Source of Sepsis: Other Sepsis Organ Dysfunction Criteria Present: SBP < 90 mmHg or MAP < 65 mmHg, Creatinine > 2.0 mg/dL and Lactic Acid > 2 mmol/L Fluid Resuscitation Fluid resuscitation indicated?: Yes Fluid Resuscitation ordered: 30 ml/kg fluid bolus ordered Sepsis Note Date exam was performed: 09/18/24 Time exam was performed: 16:00 Sepsis Attestation: Sepsis re-evaluation was performed Response to fluids: Fluid responsive hypotension Charges/Coding Visit Charges Inpatient E&M: 04502 Init Hosp L3 09/18/24 1620 <Electronically signed by Ivan Nugent MD> Cosigner Signature (if applicable): CC: Dr. López Ocampo MD; Dr. Ivan Nugent MD~ Signed [facility] Work Phone: Reason for referral (narrative)* Diagnostic Procedure Only (Routine) - Closed Specialty Diagnoses / Procedures Referred By Leslee t Referred To Contact MOLECULAR & FUNCTIONAL IMAGING Diagnoses Prostate cancer metastatic to bone (HCC) Malignant neoplasm of prostate (HCC) Procedures NM BONE WHOLE BODY BONE &/JOINT IMAGING WHOLE BODY Lillian Clemente MD [address] [address] Molecular & Functional Imaging [address] [place] [address] Referral ID Status Reason Start Date Expiration Date V isits Requested Visits Authorized [id number] Closed Auto-Generate d Referral 08/26/2021 06/28/2022 1 1 [facility] for referral (narrative)* Outpatient Procedure (Routine) - Closed Specialty Diagnoses / Procedures [facility] Diagnoses Epigastric pain Gastroesophageal reflux disease, unspecified whether esophagitis present History of anemia Procedures EGD DIAGNOSTIC ESOPHAGOGASTRODUODENOSC OPY TRANSORAL DIAGNOSTIC Derrek Baker PA-C [address] [place] [address] [address] Referral ID Status Reason Start Date Expiration Date V isits Requested Visits Authorized [id number] Closed Auto-Generate d Referral 01/25/2022 01/25/2023 1 1 * Outpatient Procedure (Routine) - Closed Specialty Diagnoses / Procedures [facility] To [facility] Diagnoses History of colon polyps Procedures COLONOSCOPY DIAGNOSTIC COLONOSCOPY FLX DX W/COLLJ SPEC WHEN PFRMD Derrek Baker PA-C [address] [place] [address] [facility] [place] [address] Referral ID Status Reason Start Date Expiration Date V isits Requested Visits Authorized [id number] Closed Auto-Generate d Referral 01/25/2022 01/25/2023 1 1 [facility] for referral (narrative)* Outpatient Procedure (Urgent) - Closed Specialty Diagnoses / Procedures [facility] Ref[facility] To [facility] Diagnoses SOB (shortness of breath) Chest pain, unspecified type Procedures EXERCISE STRESS ECG (WITHOUT IMAGING) ToneylogarCatherine APRN.CNP [address] [place] [address] [facility] [address] [place] [address] Referral ID Status Reason Start Date Expiration Date V isits Requested Visits Authorized [id number] Closed Auto-Generate d Referral 06/11/2023 06/10/2024 1 1 [facility] for referral (narrative)* Diagnostic Procedure Only (Routine) - New Request Specialty Diagnoses / Procedures Referred By Contact Referred To Contact MOLECULAR [facility] FUNCTIONAL IMAGING Diagnoses SOB (shortness of breath) Abnormal ECG Chest pain, unspecified type Mixed hyperlipidemia Abnormal electrocardiogram Procedures NM CARDIAC PERF STRESS/EXERCISE MYOCARDIAL SPECT MULTIPLE STUDIES Dorcas Champagne DO [address] [place] [address] Molecular & Functional Imaging [address] [place] [address] Referral ID Status Reason Start Date Expiration Date Visits Requested Visits Authorized [id number] New Request Auto-Generat ed Referral 10/16/2023 11/14/2024 1 1 [facility] for referral (narrative)* Diagnostic Procedure Only (Routine) - Closed Specialty Diagnoses / Procedures Referred By Contact Referred To Contact MOLECULAR [facility] FUNCTIONAL IMAGING Diagnoses SOB (shortness of breath) Abnormal ECG Chest pain, unspecified type Mixed hyperlipidemia Abnormal electrocardiogram Procedures NM CARDIAC PERF STRESS/EXERCISE MYOCARDIAL SPECT MULTIPLE STUDIES Dorcas Champagne DO [address] [place] [address] Molecular & Functional Imaging [address] [place], [place] [id number] Referral ID Status Reason Start Date Expiration Date V isits Requested Visits Authorized [id number] Closed Auto-Generate d Referral 10/16/2023 11/14/2024 1 1 [facility] for referral (narrative)* Diagnostic Procedure Only (Routine) - Closed Specialty Diagnoses / Procedures Referred By Leslee t Referred To Contact US IMAGING Diagnoses Left inguinal pain LLQ abdominal pain Procedures US DOPPLER COMPLETE DUP-SCAN ARTL KIRSTY ABDL/PEL/SCROT&/RPR ORGN COM Arsalan Ocampo MD [address] [place] [address] [place] [address] Referral ID Status Reason Start Date Expiration Date V isits Requested Visits Authorized [id number] Closed Auto-Generate d Referral 02/03/2024 03/04/2025 1 1 * Diagnostic Procedure Only (Urgent) - Closed Specialty Diagnoses / Procedures Referred By Leslee esquivel Referred To Contact US IMAGING Diagnoses Left inguinal pain LLQ abdominal pain Procedures US SCROTUM AND CONTENTS US SCROTUM & CONTENTS Arsalan Ocampo MD [address] [place] [address] [facility] [place] [address] Referral ID Status Reason Start Date Expiration Date V isits Requested Visits Authorized [id number] Closed Auto-Generate d Referral 02/03/2024 03/04/2025 1 1 [facility] for referral (narrative)No reason for referral information [facility] Phone: Reason for visit Narrative* Diagnostic Procedure Only (Routine) - Closed Specialty Diagnoses / Procedures Referred By Leslee t Referred To Contact MOLECULAR & FUNCTIONAL IMAGING Diagnoses Prostate cancer metastatic to bone (HCC) Malignant neoplasm of prostate (HCC) Procedures NM BONE WHOLE BODY BONE &/JOINT IMAGING WHOLE BODY Lillian Clemente MD [address] [place] [address] Molecular & Functional Imaging [address] [place] [address] Referral ID Status Reason Start Date Expiration Date V isits Requested Visits Authorized [id number] Closed Auto-Generate d Referral 08/26/2021 06/28/2022 1 1 [facility] for visit Narrative* Outpatient Procedure (Routine) - Closed Specialty Diagnoses / Procedures Referred By [facility] Referred To Contact [facility] Diagnoses Epigastric pain Gastroesophageal reflux disease, unspecified whether esophagitis present History of anemia Procedures EGD DIAGNOSTIC ESOPHAGOGASTRODUODENOSC OPY TRANSORAL DIAGNOSTIC Derrek Baker PA-C [address] [place] [address] [facility] [address] [place] [address] Referral ID Status Reason Start Date Expiration Date V isits Requested Visits Authorized [id number] Closed Auto-Generate d Referral 01/25/2022 01/25/2023 1 1 [facility] for visit Narrative* Outpatient Procedure (Urgent) - Closed Specialty Diagnoses / Procedures Referred By Leslee t Referred To Contact [facility] Diagnoses SOB (shortness of breath) Chest pain, unspecified type Procedures EXERCISE STRESS ECG (WITHOUT IMAGING) PodlogCatherine verduzco APRN.RANGE SCIENTIST [address] [place] [address] [facility] [address] [address] Referral ID Status Reason Start Date Expiration Date V isits Requested Visits Authorized [id number] Closed Auto-Generate d Referral 06/11/2023 06/10/2024 1 1 [facility] for visit Narrative* Diagnostic Procedure Only (Routine) - Closed Specialty Diagnoses / Procedures Referred By Contact Referred To Contact MOLECULAR & FUNCTIONAL IMAGING Diagnoses SOB (shortness of breath) Abnormal ECG Chest pain, unspecified type Mixed hyperlipidemia Abnormal electrocardiogram Procedures NM CARDIAC PERF STRESS/EXERCISE MYOCARDIAL SPECT MULTIPLE STUDIES Dorcas Champagne, [address] [place] [address] Molecular & Functional Imaging [address] [place] [address] Referral ID Status Reason Start Date Expiration Date V isits Requested Visits Authorized [id number] Closed Auto-Generate d Referral 10/16/2023 11/14/2024 1 1 [facility] for visit Narrative* Diagnostic Procedure Only (Routine) - Closed Specialty Diagnoses / Procedures Referred By Contac t Referred To Contact XR IMAGING Diagnoses Left hip pain Procedures XR HIP GENERAL 3V PELV/AP/LAT LEFT RADEX HIP UNILATERAL WITH PELVIS 2-3 VIEWS PodlogarCatherine APRN.JOI [address] [place] [address] [place] [address] Referral ID Status Reason Start Date Expiration Date V isits Requested Visits Authorized [id number] Closed Auto-Generate d Referral 12/24/2023 01/22/2025 1 1 [facility] for visit Narrative* Diagnostic Procedure Only (Routine) - Closed Specialty Diagnoses / Procedures Referred By Contac t Referred To Contact US IMAGING Diagnoses Left inguinal pain LLQ abdominal pain Procedures US DOPPLER COMPLETE DUP-SCAN ARTL KIRSTY ABDL/PEL/SCROT&/RPR ORGN COM Arsalan Ocampo MD [address] [place] [address] [place] [address] Referral ID Status Reason Start Date Expiration Date V isits Requested Visits Authorized [id number] Closed Auto-Generate d Referral 02/03/2024 03/04/2025 1 1 [facility] for visit Narrative* [place] Prior Authorization (Routine) - Authorized Specialty Diagnoses / Procedures Referred By Contac t Referred To Contact Diagnoses 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) Procedures DARBEPOETIN DAGMAR, NON-ESRD Dereje Herring MD [address] [place] [address] Phone: tel: Dereje Herring MD [address] [place] [address] Phone: tel: Referral ID Status Reason Start Date Expiration Date V isits Requested Visits Authorized [id number] Authorized 08/16/2024 02/11/2025 99 99 [facility] for visit Narrative* MRI/CT (Routine) - Closed Specialty Diagnoses / Procedures Referred By Contac t Referred To Contact MR IMAGING Diagnoses Prostate cancer metastatic to bone (HCC) Procedures MRI BRAIN WO/W IVCON MRI BRAIN BRAIN STEM W/O W/CONTRAST MATERIAL Bashir Varela DO [address] [place] [address] Phone: tel: fax: [place] [address] Referral ID Status Reason Start Date Expiration Date V isits Requested Visits Authorized [id number] Closed Auto-Generate d Referral 09/24/2024 10/24/2025 1 1 [facility] Summary Purpose Family History Relationship Condition Age at Onset Recorded Date/T payal Not Specified Malignant neoplasm Unknown Advance Directives Documents on File Type Date Recorded 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 Advance Directive(s) 08/09/2020 12:28 PM Advance Directive(s) 07/31/2020 9:26 AM Advance Directive(s) 02/10/2017 12:25 PM Advance Directive(s) 10/10/2016 10:52 AM Advance Directive(s) 02/26/2016 3:45 PM Advance Directive(s) 02/21/2016 11:13 AM Advance Directive(s) 03/10/2012 4:03 PM Documents on File Type Date Recorded 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 Advance Directive(s) 08/09/2020 12:28 PM Advance Directive(s) 07/31/2020 9:26 AM Advance Directive(s) 02/10/2017 12:25 PM Advance Directive(s) 10/10/2016 10:52 AM Advance Directive(s) 02/26/2016 3:45 PM Advance Directive(s) 02/21/2016 11:13 AM Advance Directive(s) 03/10/2012 4:03 PM Documents on File Type Date Recorded 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 No September 18, 2024 1:58pm Advance Directive Response Recorded Date/ Time Do you have a Healthcare Power of Pilot Supervisor? Yes September 18, 2024 4:56pm Medications Administered Section Active Administered Medications - [...] 45 mg, INTRAMUSCULAR, ONCE, 1 dose, On 10/14/23 at 0930, Hazardous Chemotherapy Drug: Use appropriate [...] Date Dose Rate Site benzocaine 20% 1 [place] (TOPEX) 1 [place], TOPICAL, DIRECTED, Starting on Fri02/27/22 at 0930, [...] Referral Specialty Diagnoses / Procedures Referred By Leslee esquivel Referred To Contact General Surgery Diagnoses Screening for colon cancer Procedures CONSULT TO GENERAL SURGERY OFFICE/OUTPATIENT [facility] 60-74 MINUTES Arsalan Ocampo MD [address] [place] [address] Referral ID Status Reason Start Date Expiration Date Visits Requested Visits Authorized [id number] Authorized PCP Requested Referral 11/13/2021 11/13/2022 1 1 Specialty Diagnoses / Procedures Referred By Contac t Referred To Contact Diagnoses 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) Bone metastasis (HCC) Family history of prostate cancer in father Procedures CONSULT TO [facility] CANCER GENETIC COUNSELING MEDICAL GENETICS COUNSELING EACH 30 MINUTES Lillian Clemente MD [address] [place] [address] [address] Referral ID Status Reason Start Date Expiration Date Visits Requested Visits Authorized [id number] Authorized PCP Requested Referral Auto-Generate d Referral 02/14/2023 1 1 Specialty Diagnoses / Procedures Referred By Contac t Referred To Contact Cardiology Diagnoses SOB (shortness of breath) Chest pain, unspecified type Procedures CONSULT TO CARDIOLOGY OFFICE/OUTPATIENT [facility] 60 MINUTES Podlogar, DORIS Alexander.RANGE SCIENTIST [address] [place] [address] Referral ID Status Reason Start Date Expiration Date Visits Requested Visits Authorized [id number] Authorized PCP Requested Referral 06/11/2023 06/10/2024 1 1 Specialty Diagnoses / Procedures Referred By Contac t Referred To Contact [facility] Diagnoses SOB (shortness of breath) Chest pain, unspecified type Procedures EXERCISE STRESS ECG (WITHOUT IMAGING) Podlogar, DORIS Alexander.RANGE SCIENTIST [address] [place] [address] [facility] [address] [address] Referral ID Status Reason Start Date Expiration Date Visits Requested Visits Authorized [id number] Authorized Auto-Generat ed Referral 06/11/2023 06/10/2024 1 1 Specialty Diagnoses / Procedures Referred By Contac t Referred To Contact [facility] [place] Diagnoses SOB (shortness of breath) Chest pain, unspecified type Procedures ECHO ECHO TTHRC R-T 2D W/WOM-MODE COMPL SPEC&COLR D PodlogarCatherine APRN.RANGE SCIENTIST [address] [place] [address] [facility] [address] [place] [address] Referral ID Status Reason Start Date Expiration Date Visits Requested Visits Authorized [id number] Authorized Auto-Generat ed Referral 06/11/2023 06/10/2024 1 1 Specialty Diagnoses / Procedures Referred By Contac t Referred To Contact [facility] [place] Diagnoses SOB (shortness of breath) Chest pain, unspecified type Procedures ECG COMPLETE ECG ROUTINE ECG W/LEAST 12 LDS W/I&R Podlogar, REBECCA AlexanderN.RANGE SCIENTIST [address] [place] [address] [facility] [address] [address] Referral ID Status Reason Start Date Expiration Date Visits Requested Visits Authorized [id number] Pending Review Auto-Generat ed Referral 06/11/2023 06/10/2024 1 1 Specialty Diagnoses / Procedures Referred By Contac t Referred To Contact CT IMAGING Diagnoses Prostate cancer metastatic to bone (HCC) Abdominal pain, unspecified abdominal location Acute left-sided low back pain, unspecified whether sciatica present Procedures CT LUMBAR SPINE W IVCON CT LUMBAR SPINE W IVCON CT LUMBAR SPINE W/CONTRAST MATERIAL Tee Ellis [address] [place] [address] [place] [address] Referral ID Status Reason Start Date Expiration Date Visits Requested Visits Authorized [id number] Authorized Auto-Generat ed Referral 12/05/2023 01/03/2025 1 1 Specialty Diagnoses / Procedures Referred By Contac t Referred To Contact CT IMAGING Diagnoses Prostate cancer metastatic to bone (HCC) Abdominal pain, unspecified abdominal location Acute left-sided low back pain, unspecified whether sciatica present Procedures CT ABD/PEL WO IVCON CT ABD & PELVIS W/O CONTRAST Tee Ellis [address] [place] [address] [place] [address] Referral ID Status Reason Start Date Expiration Date Visits Requested Visits Authorized [id number] Authorized Auto-Generat ed Referral 12/05/2023 01/03/2025 1 1 Referral ID Status Reason Start Date Expiration Date V isits Requested Visits Authorized [id number] Closed Auto-Generate d Referral 12/05/2023 01/03/2025 1 1 Referral ID Status Reason Start Date Expiration Date V isits Requested Visits Authorized [id number] Closed Auto-Generate d Referral 12/05/2023 01/03/2025 1 1 Specialty Diagnoses / Procedures Referred By Contac t Referred To Contact [facility] Diagnoses Left hip pain Procedures CONSULT TO PHYSICAL THERAPY PHYSICAL THERAPY EVALUATION HIGH COMPLEX 45 MINS Podlogar, Catherine, TISSUE TECHNICIAN.RANGE SCIENTIST [address] [place] [address] [facility] [address] [place] [address] Referral ID Status Reason Start Date Expiration Date Visits Requested Visits Authorized [id number] Authorized PCP Requested Referral Auto-Generate d Referral 12/24/2023 12/23/2024 99 99 Specialty Diagnoses / Procedures Referred By Contac t Referred To Contact XR IMAGING Diagnoses Left hip pain Procedures XR HIP GENERAL 3V PELV/AP/LAT LEFT RADEX HIP UNILATERAL WITH PELVIS 2-3 VIEWS Podlogar, Catherine, TISSUE TECHNICIAN.RANGE SCIENTIST [address] [place] [address] [place] [address] Referral ID Status Reason Start Date Expiration Date V isits Requested Visits Authorized [id number] Closed Auto-Generate d Referral 12/24/2023 01/22/2025 1 1 Specialty Diagnoses / Procedures Referred By Contac t Referred To Contact Orthopedics Diagnoses Right hip pain Procedures CONSULT TO ORTHOPAEDICS OFFICE/OUTPATIENT [facility] [address] [place] [address] [place] [address] Referral ID Status Reason Start Date Expiration Date Visits Requested Visits Authorized [id number] Authorized PCP Requested Referral 01/20/2025 1 1 Specialty Diagnoses / Procedures Referred By Contac t Referred To Contact Diagnoses Left inguinal pain LLQ abdominal pain Arsalan Ocampo MD [address] [place] [address] Referral ID Status Reason Start Date Expiration Date Visits Re quested Visits Authorized [id number] Closed 1 1 Specialty Diagnoses / Procedures Referred By Contac t Referred To Contact US IMAGING Diagnoses Left inguinal pain LLQ abdominal pain Procedures US DOPPLER COMPLETE DUP-SCAN ARTL KIRSTY ABDL/PEL/SCROT&/RPR ORGN COM Arsalan Ocampo MD [address] [place] [address] [place] [address] Referral ID Status Reason Start Date Expiration Date V isits Requested Visits Authorized [id number] Closed Auto-Generate d Referral 02/03/2024 03/04/2025 1 1 Specialty Diagnoses / Procedures Referred By Contac t Referred To Contact US IMAGING Diagnoses Left inguinal pain LLQ abdominal pain Procedures US SCROTUM AND CONTENTS US SCROTUM & CONTENTS Arsalan Ocampo MD [address] [place] [address] [place] [address] Referral ID Status Reason Start Date Expiration Date V isits Requested Visits Authorized [id number] Closed Auto-Generate d Referral 02/03/2024 03/04/2025 1 1 Specialty Diagnoses / Procedures Referred By Contac t Referred To Contact Pain Management Diagnoses Osteoarthritis of spine with radiculopathy, lumbar region Chronic left hip pain Procedures CONSULT TO PAIN MGT OFFICE/OUTPATIENT NEW HIGH MDM 60 MINUTES Vicente Roach MD [address] [place] [address] Pallavi Foster, TISSUE TECHNICIAN.RANGE SCIENTIST [address] [place] [address] Referral ID Status Reason Start Date Expiration Date Visits Requested Visits Authorized [id number] Authorized PCP Requested Referral 03/22/2025 1 1 Specialty Diagnoses / Procedures Referred By Contac t Referred To Contact Dermatology Diagnoses Squamous cell carcinoma of scalp Procedures MOHS OFFICE/OUTPATIENT NEW HIGH MDM 60 MINUTES Richie Deejsus MD [address] [place] [address] Referral ID Status Reason Start Date Expiration Date Visits Requested Visits Authorized [id number] Authorized PCP Requested Referral 2024 2025 1 1 Chief Complaint and Reason for Visit Chief Complaint Admit Date SEPSIS September 18, 2024 3:12 pm SEPSIS September 18, 2024 4:01 pm Reason for Visit Admit Date Acute kidney injury September 18, 2024 3:12 pm Sepsis September 18, 2024 3:12 pm Chief Complaint Admit Date SEPSIS September 18, 2024 3:12 pm SEPSIS September 18, 2024 4:01 pm SEPSIS September 19, 2024 10:3 0am SEPSIS September 20, 2024 8:45 am SEPSIS September 21, 2024 10:0 4am SEPSIS September 21, 2024 6:27 pm SEPSIS September 22, 2024 7:20 am Reason for Visit Admit Date Acute acalculous cholecystitis September 3:12pm Acute kidney injury September 18, 2024 3:12 pm Sepsis September 18, 2024 3:12 pm Chief Complaint Admit Date SEPSIS September 18, 2024 3:12 pm SEPSIS September 18, 2024 4:01 pm SEPSIS September 19, 2024 10:3 0am SEPSIS September 20, 2024 8:45 am SEPSIS September 21, 2024 10:0 4am SEPSIS September 21, 2024 6:27 pm SEPSIS September 22, 2024 7:20 am SEPSIS September 22, 2024 6:54 pm wound October 14, 2024 9:06 am Reason for Visit Admit Date Acute acalculous cholecystitis September 3:12pm Acute kidney injury September 18, 2024 3:12 pm Sepsis September 18, 2024 3:12 pm 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 (S October 14, 2024 9:06am History of prostate cancer October 14 9:06am Open wound of scalp with complication Ju 2024 9:06am Surgical wound breakdown October 14, 2024 9:06am Wound dehiscence October 14, 2024 9:06 am Additional Source Comments (unrecognized sect ion and content) No Status Records FoundNo Status Records FoundNo Status Records FoundNo Status Records FoundNo Status Records FoundNo Status Records FoundNo Status Records FoundNo Status Records FoundNo Status Records Found INFORMATION SOURCE (unrecogn ized section and content) DATE CREATED AUTHOR 09/30/2017 [facility] DATE CREATED AUTHOR AUTHOR'S ORGANIZ ATION 10/01/2017 [facility] DATE CREATED AUTHOR AUTHOR'S ORGANIZ ATION 09/10/2021 [facility] DATE CREATED AUTHOR AUTHOR'S ORGANIZ ATION 05/08/2022 [facility] DATE CREATED AUTHOR AUTHOR'S ORGANIZ ATION 10/18/2022 [facility] ([place]) DATE CREATED AUTHOR AUTHOR'S ORGANIZ ATION 11/13/2023 [facility] DATE CREATED AUTHOR AUTHOR'S ORGANIZ ATION 05/14/2024 [facility] DATE CREATED AUTHOR AUTHOR'S ORGANIZ ATION 10/01/2024 [facility] DATE CREATED AUTHOR AUTHOR'S ORGANIZ ATION 10/09/2024 [facility] Source Comments (unrecognize d section and content) In the event this informatio n is protected by the Federal Confidentiality of Alcohol and Drug Abuse Patient Records regulations: The Federal rules restrict any use of the information to criminally investigate or prosecute any alcohol or drug abuse patient.[facility] the event this information is protected by the Federal Confidentiality of Alcohol and Drug Abuse Patient Records regulations: The Federal rules restrict any use of the information to criminally investigate or prosecute any alcohol or drug abuse patient.[facility] HospitalIn the event this information is protected by the Federal Confidentiality of Alcohol and Drug Abuse Patient Records regulations: The Federal rules restrict any use of the information to criminally investigate or prosecute any alcohol or drug abuse patient.[facility] HospitalIn the event this information is protected by the Federal Confidentiality of Alcohol and Drug Abuse Patient Records regulations: The Federal rules restrict any use of the information to criminally investigate or prosecute any alcohol or drug abuse patient.[facility] HospitalIn the event this information is protected by the Federal Confidentiality of Alcohol and Drug Abuse Patient Records regulations: The Federal rules restrict any use of the information to criminally investigate or prosecute any alcohol or drug abuse patient.[facility] HospitalIn the event this information is protected by the Federal Confidentiality of Alcohol and Drug Abuse Patient Records regulations: The Federal rules restrict any use of the information to criminally investigate or prosecute any alcohol or drug abuse patient.[facility] HospitalIn the event this information is protected by the Federal Confidentiality of Alcohol and Drug Abuse Patient Records regulations: The Federal rules restrict any use of the information to criminally investigate or prosecute any alcohol or drug abuse patient.[facility] HospitalIn the event this information is protected by the Federal Confidentiality of Alcohol and Drug Abuse Patient Records regulations: The Federal rules restrict any use of the information to criminally investigate or prosecute any alcohol or drug abuse patient.[facility] HospitalIn the event this information is protected by the Federal Confidentiality of Alcohol and Drug Abuse Patient Records regulations: The Federal rules restrict any use of the information to criminally investigate or prosecute any alcohol or drug abuse patient.[facility] HospitalIn the event this information is protected by the Federal Confidentiality of Alcohol and Drug Abuse Patient Records regulations: The Federal rules restrict any use of the information to criminally investigate or prosecute any alcohol or drug abuse patient.[facility] HospitalIn the event this information is protected by the Federal Confidentiality of Alcohol and Drug Abuse Patient Records regulations: The Federal rules restrict any use of the information to criminally investigate or prosecute any alcohol or drug abuse patient.[facility] HospitalIn the event this information is protected by the Federal Confidentiality of Alcohol and Drug Abuse Patient Records regulations: The Federal rules restrict any use of the information to criminally investigate or prosecute any alcohol or drug abuse patient.[facility] HospitalIn the event this information is protected by the Federal Confidentiality of Alcohol and Drug Abuse Patient Records regulations: The Federal rules restrict any use of the information to criminally investigate or prosecute any alcohol or drug abuse patient.[facility] HospitalIn the event this information is protected by the Federal Confidentiality of Alcohol and Drug Abuse Patient Records regulations: The Federal rules restrict any use of the information to criminally investigate or prosecute any alcohol or drug abuse patient.[facility] HospitalIn the event this information is protected by the Federal Confidentiality of Alcohol and Drug Abuse Patient Records regulations: The Federal rules restrict any use of the information to criminally investigate or prosecute any alcohol or drug abuse patient.[facility] HospitalIn the event this information is protected by the Federal Confidentiality of Alcohol and Drug Abuse Patient Records regulations: The Federal rules restrict any use of the information to criminally investigate or prosecute any alcohol or drug abuse patient.[facility] HospitalIn the event this information is protected by the Federal Confidentiality of Alcohol and Drug Abuse Patient Records regulations: The Federal rules restrict any use of the information to criminally investigate or prosecute any alcohol or drug abuse patient.[facility] HospitalIn the event this information is protected by the Federal Confidentiality of Alcohol and Drug Abuse Patient Records regulations: The Federal rules restrict any use of the information to criminally investigate or prosecute any alcohol or drug abuse patient.[facility] HospitalIn the event this information is protected by the Federal Confidentiality of Alcohol and Drug Abuse Patient Records regulations: The Federal rules restrict any use of the information to criminally investigate or prosecute any alcohol or drug abuse patient.[facility] HospitalIn the event this information is protected by the Federal Confidentiality of Alcohol and Drug Abuse Patient Records regulations: The Federal rules restrict any use of the information to criminally investigate or prosecute any alcohol or drug abuse patient.[facility] HospitalIn the event this information is protected by the Federal Confidentiality of Alcohol and Drug Abuse Patient Records regulations: The Federal rules restrict any use of the information to criminally investigate or prosecute any alcohol or drug abuse patient.[facility] HospitalIn the event this information is protected by the Federal Confidentiality of Alcohol and Drug Abuse Patient Records regulations: The Federal rules restrict any use of the information to criminally investigate or prosecute any alcohol or drug abuse patient.[facility] HospitalIn the event this information is protected by the Federal Confidentiality of Alcohol and Drug Abuse Patient Records regulations: The Federal rules restrict any use of the information to criminally investigate or prosecute any alcohol or drug abuse patient.[facility] HospitalIn the event this information is protected by the Federal Confidentiality of Alcohol and Drug Abuse Patient Records regulations: The Federal rules restrict any use of the information to criminally investigate or prosecute any alcohol or drug abuse patient.[facility] HospitalIn the event this information is protected by the Federal Confidentiality of Alcohol and Drug Abuse Patient Records regulations: The Federal rules restrict any use of the information to criminally investigate or prosecute any alcohol or drug abuse patient.[facility] HospitalIn the event this information is protected by the Federal Confidentiality of Alcohol and Drug Abuse Patient Records regulations: The Federal rules restrict any use of the information to criminally investigate or prosecute any alcohol or drug abuse patient.[facility] HospitalIn the event this information is protected by the Federal Confidentiality of Alcohol and Drug Abuse Patient Records regulations: The Federal rules restrict any use of the information to criminally investigate or prosecute any alcohol or drug abuse patient.[facility] HospitalIn the event this information is protected by the Federal Confidentiality of Alcohol and Drug Abuse Patient Records regulations: The Federal rules restrict any use of the information to criminally investigate or prosecute any alcohol or drug abuse patient.[facility] HospitalIn the event this information is protected by the Federal Confidentiality of Alcohol and Drug Abuse Patient Records regulations: The Federal rules restrict any use of the information to criminally investigate or prosecute any alcohol or drug abuse patient.[facility] HospitalIn the event this information is protected by the Federal Confidentiality of Alcohol and Drug Abuse Patient Records regulations: The Federal rules restrict any use of the information to criminally investigate or prosecute any alcohol or drug abuse patient.[facility] HospitalIn the event this information is protected by the Federal Confidentiality of Alcohol and Drug Abuse Patient Records regulations: The Federal rules restrict any use of the information to criminally investigate or prosecute any alcohol or drug abuse patient.[facility] HospitalIn the event this information is protected by the Federal Confidentiality of Alcohol and Drug Abuse Patient Records regulations: The Federal rules restrict any use of the information to criminally investigate or prosecute any alcohol or drug abuse patient.[facility] HospitalIn the event this information is protected by the Federal Confidentiality of Alcohol and Drug Abuse Patient Records regulations: The Federal rules restrict any use of the information to criminally investigate or prosecute any alcohol or drug abuse patient.[facility] HospitalIn the event this information is protected by the Federal Confidentiality of Alcohol and Drug Abuse Patient Records regulations: The Federal rules restrict any use of the information to criminally investigate or prosecute any alcohol or drug abuse patient.[facility] HospitalIn the event this information is protected by the Federal Confidentiality of Alcohol and Drug Abuse Patient Records regulations: The Federal rules restrict any use of the information to criminally investigate or prosecute any alcohol or drug abuse patient.[facility] HospitalIn the event this information is protected by the Federal Confidentiality of Alcohol and Drug Abuse Patient Records regulations: The Federal rules restrict any use of the information to criminally investigate or prosecute any alcohol or drug abuse patient.[facility] HospitalIn the event this information is protected by the Federal Confidentiality of Alcohol and Drug Abuse Patient Records regulations: The Federal rules restrict any use of the information to criminally investigate or prosecute any alcohol or drug abuse patient.[facility] HospitalIn the event this information is protected by the Federal Confidentiality of Alcohol and Drug Abuse Patient Records regulations: The Federal rules restrict any use of the information to criminally investigate or prosecute any alcohol or drug abuse patient.[facility] HospitalIn the event this information is protected by the Federal Confidentiality of Alcohol and Drug Abuse Patient Records regulations: The Federal rules restrict any use of the information to criminally investigate or prosecute any alcohol or drug abuse patient.[facility] HospitalIn the event this information is protected by the Federal Confidentiality of Alcohol and Drug Abuse Patient Records regulations: The Federal rules restrict any use of the information to criminally investigate or prosecute any alcohol or drug abuse patient.[facility] HospitalIn the event this information is protected by the Federal Confidentiality of Alcohol and Drug Abuse Patient Records regulations: The Federal rules restrict any use of the information to criminally investigate or prosecute any alcohol or drug abuse patient.[facility] HospitalIn the event this information is protected by the Federal Confidentiality of Alcohol and Drug Abuse Patient Records regulations: The Federal rules restrict any use of the information to criminally investigate or prosecute any alcohol or drug abuse patient.[facility] HospitalIn the event this information is protected by the Federal Confidentiality of Alcohol and Drug Abuse Patient Records regulations: The Federal rules restrict any use of the information to criminally investigate or prosecute any alcohol or drug abuse patient.[facility] HospitalIn the event this information is protected by the Federal Confidentiality of Alcohol and Drug Abuse Patient Records regulations: The Federal rules restrict any use of the information to criminally investigate or prosecute any alcohol or drug abuse patient.[facility] HospitalIn the event this information is protected by the Federal Confidentiality of Alcohol and Drug Abuse Patient Records regulations: The Federal rules restrict any use of the information to criminally investigate or prosecute any alcohol or drug abuse patient.[facility] HospitalIn the event this information is protected by the Federal Confidentiality of Alcohol and Drug Abuse Patient Records regulations: The Federal rules restrict any use of the information to criminally investigate or prosecute any alcohol or drug abuse patient.[facility] HospitalIn the event this information is protected by the Federal Confidentiality of Alcohol and Drug Abuse Patient Records regulations: The Federal rules restrict any use of the information to criminally investigate or prosecute any alcohol or drug abuse patient.[facility] HospitalIn the event this information is protected by the Federal Confidentiality of Alcohol and Drug Abuse Patient Records regulations: The Federal rules restrict any use of the information to criminally investigate or prosecute any alcohol or drug abuse patient.[facility] HospitalIn the event this information is protected by the Federal Confidentiality of Alcohol and Drug Abuse Patient Records regulations: The Federal rules restrict any use of the information to criminally investigate or prosecute any alcohol or drug abuse patient.[facility] HospitalIn the event this information is protected by the Federal Confidentiality of Alcohol and Drug Abuse Patient Records regulations: The Federal rules restrict any use of the information to criminally investigate or prosecute any alcohol or drug abuse patient.[facility] HospitalIn the event this information is protected by the Federal Confidentiality of Alcohol and Drug Abuse Patient Records regulations: The Federal rules restrict any use of the information to criminally investigate or prosecute any alcohol or drug abuse patient.[facility] HospitalIn the event this information is protected by the Federal Confidentiality of Alcohol and Drug Abuse Patient Records regulations: The Federal rules restrict any use of the information to criminally investigate or prosecute any alcohol or drug abuse patient.[facility] HospitalIn the event this information is protected by the Federal Confidentiality of Alcohol and Drug Abuse Patient Records regulations: The Federal rules restrict any use of the information to criminally investigate or prosecute any alcohol or drug abuse patient.[facility] HospitalIn the event this information is protected by the Federal Confidentiality of Alcohol and Drug Abuse Patient Records regulations: The Federal rules restrict any use of the information to criminally investigate or prosecute any alcohol or drug abuse patient.[facility] HospitalIn the event this information is protected by the Federal Confidentiality of Alcohol and Drug Abuse Patient Records regulations: The Federal rules restrict any use of the information to criminally investigate or prosecute any alcohol or drug abuse patient.[facility] HospitalIn the event this information is protected by the Federal Confidentiality of Alcohol and Drug Abuse Patient Records regulations: The Federal rules restrict any use of the information to criminally investigate or prosecute any alcohol or drug abuse patient.[facility] HospitalIn the event this information is protected by the Federal Confidentiality of Alcohol and Drug Abuse Patient Records regulations: The Federal rules restrict any use of the information to criminally investigate or prosecute any alcohol or drug abuse patient.[facility] HospitalIn the event this information is protected by the Federal Confidentiality of Alcohol and Drug Abuse Patient Records regulations: The Federal rules restrict any use of the information to criminally investigate or prosecute any alcohol or drug abuse patient.[facility] HospitalIn the event this information is protected by the Federal Confidentiality of Alcohol and Drug Abuse Patient Records regulations: The Federal rules restrict any use of the information to criminally investigate or prosecute any alcohol or drug abuse patient.[facility] HospitalIn the event this information is protected by the Federal Confidentiality of Alcohol and Drug Abuse Patient Records regulations: The Federal rules restrict any use of the information to criminally investigate or prosecute any alcohol or drug abuse patient.[facility] HospitalIn the event this information is protected by the Federal Confidentiality of Alcohol and Drug Abuse Patient Records regulations: The Federal rules restrict any use of the information to criminally investigate or prosecute any alcohol or drug abuse patient.[facility] HospitalIn the event this information is protected by the Federal Confidentiality of Alcohol and Drug Abuse Patient Records regulations: The Federal rules restrict any use of the information to criminally investigate or prosecute any alcohol or drug abuse patient.[facility] HospitalIn the event this information is protected by the Federal Confidentiality of Alcohol and Drug Abuse Patient Records regulations: The Federal rules restrict any use of the information to criminally investigate or prosecute any alcohol or drug abuse patient.[facility] HospitalIn the event this information is protected by the Federal Confidentiality of Alcohol and Drug Abuse Patient Records regulations: The Federal rules restrict any use of the information to criminally investigate or prosecute any alcohol or drug abuse patient.[facility] HospitalIn the event this information is protected by the Federal Confidentiality of Alcohol and Drug Abuse Patient Records regulations: The Federal rules restrict any use of the information to criminally investigate or prosecute any alcohol or drug abuse patient.[facility] HospitalIn the event this information is protected by the Federal Confidentiality of Alcohol and Drug Abuse Patient Records regulations: The Federal rules restrict any use of the information to criminally investigate or prosecute any alcohol or drug abuse patient.[facility] HospitalIn the event this information is protected by the Federal Confidentiality of Alcohol and Drug Abuse Patient Records regulations: The Federal rules restrict any use of the information to criminally investigate or prosecute any alcohol or drug abuse patient.[facility] HospitalIn the event this information is protected by the Federal Confidentiality of Alcohol and Drug Abuse Patient Records regulations: The Federal rules restrict any use of the information to criminally investigate or prosecute any alcohol or drug abuse patient.[facility] HospitalIn the event this information is protected by the Federal Confidentiality of Alcohol and Drug Abuse Patient Records regulations: The Federal rules restrict any use of the information to criminally investigate or prosecute any alcohol or drug abuse patient.[facility] HospitalIn the event this information is protected by the Federal Confidentiality of Alcohol and Drug Abuse Patient Records regulations: The Federal rules restrict any use of the information to criminally investigate or prosecute any alcohol or drug abuse patient.[facility] HospitalIn the event this information is protected by the Federal Confidentiality of Alcohol and Drug Abuse Patient Records regulations: The Federal rules restrict any use of the information to criminally investigate or prosecute any alcohol or drug abuse patient.[facility] HospitalIn the event this information is protected by the Federal Confidentiality of Alcohol and Drug Abuse Patient Records regulations: The Federal rules restrict any use of the information to criminally investigate or prosecute any alcohol or drug abuse patient.[facility] HospitalIn the event this information is protected by the Federal Confidentiality of Alcohol and Drug Abuse Patient Records regulations: The Federal rules restrict any use of the information to criminally investigate or prosecute any alcohol or drug abuse patient.[facility] HospitalIn the event this information is protected by the Federal Confidentiality of Alcohol and Drug Abuse Patient Records regulations: The Federal rules restrict any use of the information to criminally investigate or prosecute any alcohol or drug abuse patient.[facility] HospitalIn the event this information is protected by the Federal Confidentiality of Alcohol and Drug Abuse Patient Records regulations: The Federal rules restrict any use of the information to criminally investigate or prosecute any alcohol or drug abuse patient.[facility] HospitalIn the event this information is protected by the Federal Confidentiality of Alcohol and Drug Abuse Patient Records regulations: The Federal rules restrict any use of the information to criminally investigate or prosecute any alcohol or drug abuse patient.[facility] HospitalIn the event this information is protected by the Federal Confidentiality of Alcohol and Drug Abuse Patient Records regulations: The Federal rules restrict any use of the information to criminally investigate or prosecute any alcohol or drug abuse patient.[facility] HospitalIn the event this information is protected by the Federal Confidentiality of Alcohol and Drug Abuse Patient Records regulations: The Federal rules restrict any use of the information to criminally investigate or prosecute any alcohol or drug abuse patient.[facility] HospitalIn the event this information is protected by the Federal Confidentiality of Alcohol and Drug Abuse Patient Records regulations: The Federal rules restrict any use of the information to criminally investigate or prosecute any alcohol or drug abuse patient.[facility] HospitalIn the event this information is protected by the Federal Confidentiality of Alcohol and Drug Abuse Patient Records regulations: The Federal rules restrict any use of the information to criminally investigate or prosecute any alcohol or drug abuse patient.[facility] HospitalIn the event this information is protected by the Federal Confidentiality of Alcohol and Drug Abuse Patient Records regulations: The Federal rules restrict any use of the information to criminally investigate or prosecute any alcohol or drug abuse patient.[facility] HospitalIn the event this information is protected by the Federal Confidentiality of Alcohol and Drug Abuse Patient Records regulations: The Federal rules restrict any use of the information to criminally investigate or prosecute any alcohol or drug abuse patient.[facility] HospitalIn the event this information is protected by the Federal Confidentiality of Alcohol and Drug Abuse Patient Records regulations: The Federal rules restrict any use of the information to criminally investigate or prosecute any alcohol or drug abuse patient.[facility] HospitalIn the event this information is protected by the Federal Confidentiality of Alcohol and Drug Abuse Patient Records regulations: The Federal rules restrict any use of the information to criminally investigate or prosecute any alcohol or drug abuse patient.[facility] HospitalIn the event this information is protected by the Federal Confidentiality of Alcohol and Drug Abuse Patient Records regulations: The Federal rules restrict any use of the information to criminally investigate or prosecute any alcohol or drug abuse patient.[facility] HospitalIn the event this information is protected by the Federal Confidentiality of Alcohol and Drug Abuse Patient Records regulations: The Federal rules restrict any use of the information to criminally investigate or prosecute any alcohol or drug abuse patient.[facility] HospitalIn the event this information is protected by the Federal Confidentiality of Alcohol and Drug Abuse Patient Records regulations: The Federal rules restrict any use of the information to criminally investigate or prosecute any alcohol or drug abuse patient.[facility] HospitalIn the event this information is protected by the Federal Confidentiality of Alcohol and Drug Abuse Patient Records regulations: The Federal rules restrict any use of the information to criminally investigate or prosecute any alcohol or drug abuse patient.[facility] HospitalIn the event this information is protected by the Federal Confidentiality of Alcohol and Drug Abuse Patient Records regulations: The Federal rules restrict any use of the information to criminally investigate or prosecute any alcohol or drug abuse patient.[facility] HospitalIn the event this information is protected by the Federal Confidentiality of Alcohol and Drug Abuse Patient Records regulations: The Federal rules restrict any use of the information to criminally investigate or prosecute any alcohol or drug abuse patient.[facility] HospitalIn the event this information is protected by the Federal Confidentiality of Alcohol and Drug Abuse Patient Records regulations: The Federal rules restrict any use of the information to criminally investigate or prosecute any alcohol or drug abuse patient.[facility] HospitalIn the event this information is protected by the Federal Confidentiality of Alcohol and Drug Abuse Patient Records regulations: The Federal rules restrict any use of the information to criminally investigate or prosecute any alcohol or drug abuse patient.[facility] HospitalIn the event this information is protected by the Federal Confidentiality of Alcohol and Drug Abuse Patient Records regulations: The Federal rules restrict any use of the information to criminally investigate or prosecute any alcohol or drug abuse patient.[facility] HospitalIn the event this information is protected by the Federal Confidentiality of Alcohol and Drug Abuse Patient Records regulations: The Federal rules restrict any use of the information to criminally investigate or prosecute any alcohol or drug abuse patient.[facility] HospitalIn the event this information is protected by the Federal Confidentiality of Alcohol and Drug Abuse Patient Records regulations: The Federal rules restrict any use of the information to criminally investigate or prosecute any alcohol or drug abuse patient.[facility] HospitalIn the event this information is protected by the Federal Confidentiality of Alcohol and Drug Abuse Patient Records regulations: The Federal rules restrict any use of the information to criminally investigate or prosecute any alcohol or drug abuse patient.[facility] HospitalIn the event this information is protected by the Federal Confidentiality of Alcohol and Drug Abuse Patient Records regulations: The Federal rules restrict any use of the information to criminally investigate or prosecute any alcohol or drug abuse patient.[facility] HospitalIn the event this information is protected by the Federal Confidentiality of Alcohol and Drug Abuse Patient Records regulations: The Federal rules restrict any use of the information to criminally investigate or prosecute any alcohol or drug abuse patient.[facility] HospitalIn the event this information is protected by the Federal Confidentiality of Alcohol and Drug Abuse Patient Records regulations: The Federal rules restrict any use of the information to criminally investigate or prosecute any alcohol or drug abuse patient.[facility] HospitalIn the event this information is protected by the Federal Confidentiality of Alcohol and Drug Abuse Patient Records regulations: The Federal rules restrict any use of the information to criminally investigate or prosecute any alcohol or drug abuse patient.[facility] HospitalIn the event this information is protected by the Federal Confidentiality of Alcohol and Drug Abuse Patient Records regulations: The Federal rules restrict any use of the information to criminally investigate or prosecute any alcohol or drug abuse patient.[facility] HospitalIn the event this information is protected by the Federal Confidentiality of Alcohol and Drug Abuse Patient Records regulations: The Federal rules restrict any use of the information to criminally investigate or prosecute any alcohol or drug abuse patient.[facility] HospitalIn the event this information is protected by the Federal Confidentiality of Alcohol and Drug Abuse Patient Records regulations: The Federal rules restrict any use of the information to criminally investigate or prosecute any alcohol or drug abuse patient.[facility] HospitalIn the event this information is protected by the Federal Confidentiality of Alcohol and Drug Abuse Patient Records regulations: The Federal rules restrict any use of the information to criminally investigate or prosecute any alcohol or drug abuse patient.[facility] HospitalIn the event this information is protected by the Federal Confidentiality of Alcohol and Drug Abuse Patient Records regulations: The Federal rules restrict any use of the information to criminally investigate or prosecute any alcohol or drug abuse patient.[facility] HospitalIn the event this information is protected by the Federal Confidentiality of Alcohol and Drug Abuse Patient Records regulations: The Federal rules restrict any use of the information to criminally investigate or prosecute any alcohol or drug abuse patient.[facility] HospitalIn the event this information is protected by the Federal Confidentiality of Alcohol and Drug Abuse Patient Records regulations: The Federal rules restrict any use of the information to criminally investigate or prosecute any alcohol or drug abuse patient.[facility] HospitalIn the event this information is protected by the Federal Confidentiality of Alcohol and Drug Abuse Patient Records regulations: The Federal rules restrict any use of the information to criminally investigate or prosecute any alcohol or drug abuse patient.[facility] HospitalIn the event this information is protected by the Federal Confidentiality of Alcohol and Drug Abuse Patient Records regulations: The Federal rules restrict any use of the information to criminally investigate or prosecute any alcohol or drug abuse patient.[facility] HospitalIn the event this information is protected by the Federal Confidentiality of Alcohol and Drug Abuse Patient Records regulations: The Federal rules restrict any use of the information to criminally investigate or prosecute any alcohol or drug abuse patient.[facility] HospitalIn the event this information is protected by the Federal Confidentiality of Alcohol and Drug Abuse Patient Records regulations: The Federal rules restrict any use of the information to criminally investigate or prosecute any alcohol or drug abuse patient.[facility] HospitalIn the event this information is protected by the Federal Confidentiality of Alcohol and Drug Abuse Patient Records regulations: The Federal rules restrict any use of the information to criminally investigate or prosecute any alcohol or drug abuse patient.[facility] HospitalIn the event this information is protected by the Federal Confidentiality of Alcohol and Drug Abuse Patient Records regulations: The Federal rules restrict any use of the information to criminally investigate or prosecute any alcohol or drug abuse patient.[facility] HospitalIn the event this information is protected by the Federal Confidentiality of Alcohol and Drug Abuse Patient Records regulations: The Federal rules restrict any use of the information to criminally investigate or prosecute any alcohol or drug abuse patient.[facility] HospitalIn the event this information is protected by the Federal Confidentiality of Alcohol and Drug Abuse Patient Records regulations: The Federal rules restrict any use of the information to criminally investigate or prosecute any alcohol or drug abuse patient.[facility] HospitalIn the event this information is protected by the Federal Confidentiality of Alcohol and Drug Abuse Patient Records regulations: The Federal rules restrict any use of the information to criminally investigate or prosecute any alcohol or drug abuse patient.[facility] HospitalIn the event this information is protected by the Federal Confidentiality of Alcohol and Drug Abuse Patient Records regulations: The Federal rules restrict any use of the information to criminally investigate or prosecute any alcohol or drug abuse patient.[facility] HospitalIn the event this information is protected by the Federal Confidentiality of Alcohol and Drug Abuse Patient Records regulations: The Federal rules restrict any use of the information to criminally investigate or prosecute any alcohol or drug abuse patient.[facility] HospitalIn the event this information is protected by the Federal Confidentiality of Alcohol and Drug Abuse Patient Records regulations: The Federal rules restrict any use of the information to criminally investigate or prosecute any alcohol or drug abuse patient.[facility] HospitalIn the event this information is protected by the Federal Confidentiality of Alcohol and Drug Abuse Patient Records regulations: The Federal rules restrict any use of the information to criminally investigate or prosecute any alcohol or drug abuse patient.[facility] HospitalIn the event this information is protected by the Federal Confidentiality of Alcohol and Drug Abuse Patient Records regulations: The Federal rules restrict any use of the information to criminally investigate or prosecute any alcohol or drug abuse patient.[facility] HospitalIn the event this information is protected by the Federal Confidentiality of Alcohol and Drug Abuse Patient Records regulations: The Federal rules restrict any use of the information to criminally investigate or prosecute any alcohol or drug abuse patient.[facility] HospitalIn the event this information is protected by the Federal Confidentiality of Alcohol and Drug Abuse Patient Records regulations: The Federal rules restrict any use of the information to criminally investigate or prosecute any alcohol or drug abuse patient.[facility] HospitalIn the event this information is protected by the Federal Confidentiality of Alcohol and Drug Abuse Patient Records regulations: The Federal rules restrict any use of the information to criminally investigate or prosecute any alcohol or drug abuse patient.[facility] HospitalIn the event this information is protected by the Federal Confidentiality of Alcohol and Drug Abuse Patient Records regulations: The Federal rules restrict any use of the information to criminally investigate or prosecute any alcohol or drug abuse patient.[facility] HospitalIn the event this information is protected by the Federal Confidentiality of Alcohol and Drug Abuse Patient Records regulations: The Federal rules restrict any use of the information to criminally investigate or prosecute any alcohol or drug abuse patient.[facility] HospitalIn the event this information is protected by the Federal Confidentiality of Alcohol and Drug Abuse Patient Records regulations: The Federal rules restrict any use of the information to criminally investigate or prosecute any alcohol or drug abuse patient.[facility] HospitalIn the event this information is protected by the Federal Confidentiality of Alcohol and Drug Abuse Patient Records regulations: The Federal rules restrict any use of the information to criminally investigate or prosecute any alcohol or drug abuse patient.[facility] HospitalIn the event this information is protected by the Federal Confidentiality of Alcohol and Drug Abuse Patient Records regulations: The Federal rules restrict any use of the information to criminally investigate or prosecute any alcohol or drug abuse patient.[facility] HospitalIn the event this information is protected by the Federal Confidentiality of Alcohol and Drug Abuse Patient Records regulations: The Federal rules restrict any use of the information to criminally investigate or prosecute any alcohol or drug abuse patient.[facility] HospitalIn the event this information is protected by the Federal Confidentiality of Alcohol and Drug Abuse Patient Records regulations: The Federal rules restrict any use of the information to criminally investigate or prosecute any alcohol or drug abuse patient.[facility] HospitalIn the event this information is protected by the Federal Confidentiality of Alcohol and Drug Abuse Patient Records regulations: The Federal rules restrict any use of the information to criminally investigate or prosecute any alcohol or drug abuse patient.[facility] HospitalIn the event this information is protected by the Federal Confidentiality of Alcohol and Drug Abuse Patient Records regulations: The Federal rules restrict any use of the information to criminally investigate or prosecute any alcohol or drug abuse patient.[facility] HospitalIn the event this information is protected by the Federal Confidentiality of Alcohol and Drug Abuse Patient Records regulations: The Federal rules restrict any use of the information to criminally investigate or prosecute any alcohol or drug abuse patient.[facility] HospitalIn the event this information is protected by the Federal Confidentiality of Alcohol and Drug Abuse Patient Records regulations: The Federal rules restrict any use of the information to criminally investigate or prosecute any alcohol or drug abuse patient.[facility] HospitalIn the event this information is protected by the Federal Confidentiality of Alcohol and Drug Abuse Patient Records regulations: The Federal rules restrict any use of the information to criminally investigate or prosecute any alcohol or drug abuse patient.[facility] HospitalIn the event this information is protected by the Federal Confidentiality of Alcohol and Drug Abuse Patient Records regulations: The Federal rules restrict any use of the information to criminally investigate or prosecute any alcohol or drug abuse patient.[facility] HospitalIn the event this information is protected by the Federal Confidentiality of Alcohol and Drug Abuse Patient Records regulations: The Federal rules restrict any use of the information to criminally investigate or prosecute any alcohol or drug abuse patient.[facility] HospitalIn the event this information is protected by the Federal Confidentiality of Alcohol and Drug Abuse Patient Records regulations: The Federal rules restrict any use of the information to criminally investigate or prosecute any alcohol or drug abuse patient.[facility] HospitalIn the event this information is protected by the Federal Confidentiality of Alcohol and Drug Abuse Patient Records regulations: The Federal rules restrict any use of the information to criminally investigate or prosecute any alcohol or drug abuse patient.[facility] HospitalIn the event this information is protected by the Federal Confidentiality of Alcohol and Drug Abuse Patient Records regulations: The Federal rules restrict any use of the information to criminally investigate or prosecute any alcohol or drug abuse patient.[facility] HospitalIn the event this information is protected by the Federal Confidentiality of Alcohol and Drug Abuse Patient Records regulations: The Federal rules restrict any use of the information to criminally investigate or prosecute any alcohol or drug abuse patient.[facility] HospitalIn the event this information is protected by the Federal Confidentiality of Alcohol and Drug Abuse Patient Records regulations: The Federal rules restrict any use of the information to criminally investigate or prosecute any alcohol or drug abuse patient.[facility] HospitalIn the event this information is protected by the Federal Confidentiality of Alcohol and Drug Abuse Patient Records regulations: The Federal rules restrict any use of the information to criminally investigate or prosecute any alcohol or drug abuse patient.[facility] HospitalIn the event this information is protected by the Federal Confidentiality of Alcohol and Drug Abuse Patient Records regulations: The Federal rules restrict any use of the information to criminally investigate or prosecute any alcohol or drug abuse patient.[facility] HospitalIn the event this information is protected by the Federal Confidentiality of Alcohol and Drug Abuse Patient Records regulations: The Federal rules restrict any use of the information to criminally investigate or prosecute any alcohol or drug abuse patient.[facility] HospitalIn the event this information is protected by the Federal Confidentiality of Alcohol and Drug Abuse Patient Records regulations: The Federal rules restrict any use of the information to criminally investigate or prosecute any alcohol or drug abuse patient.[facility] HospitalIn the event this information is protected by the Federal Confidentiality of Alcohol and Drug Abuse Patient Records regulations: The Federal rules restrict any use of the information to criminally investigate or prosecute any alcohol or drug abuse patient.[facility] HospitalIn the event this information is protected by the Federal Confidentiality of Alcohol and Drug Abuse Patient Records regulations: The Federal rules restrict any use of the information to criminally investigate or prosecute any alcohol or drug abuse patient.[facility] HospitalIn the event this information is protected by the Federal Confidentiality of Alcohol and Drug Abuse Patient Records regulations: The Federal rules restrict any use of the information to criminally investigate or prosecute any alcohol or drug abuse patient.[facility] HospitalIn the event this information is protected by the Federal Confidentiality of Alcohol and Drug Abuse Patient Records regulations: The Federal rules restrict any use of the information to criminally investigate or prosecute any alcohol or drug abuse patient.[facility] HospitalIn the event this information is protected by the Federal Confidentiality of Alcohol and Drug Abuse Patient Records regulations: The Federal rules restrict any use of the information to criminally investigate or prosecute any alcohol or drug abuse patient.[facility] HospitalIn the event this information is protected by the Federal Confidentiality of Alcohol and Drug Abuse Patient Records regulations: The Federal rules restrict any use of the information to criminally investigate or prosecute any alcohol or drug abuse patient.[facility] HospitalIn the event this information is protected by the Federal Confidentiality of Alcohol and Drug Abuse Patient Records regulations: The Federal rules restrict any use of the information to criminally investigate or prosecute any alcohol or drug abuse patient.[facility] HospitalIn the event this information is protected by the Federal Confidentiality of Alcohol and Drug Abuse Patient Records regulations: The Federal rules restrict any use of the information to criminally investigate or prosecute any alcohol or drug abuse patient.[facility] HospitalIn the event this information is protected by the Federal Confidentiality of Alcohol and Drug Abuse Patient Records regulations: The Federal rules restrict any use of the information to criminally investigate or prosecute any alcohol or drug abuse patient.[facility] HospitalIn the event this information is protected by the Federal Confidentiality of Alcohol and Drug Abuse Patient Records regulations: The Federal rules restrict any use of the information to criminally investigate or prosecute any alcohol or drug abuse patient.[facility] HospitalIn the event this information is protected by the Federal Confidentiality of Alcohol and Drug Abuse Patient Records regulations: The Federal rules restrict any use of the information to criminally investigate or prosecute any alcohol or drug abuse patient.[facility] HospitalIn the event this information is protected by the Federal Confidentiality of Alcohol and Drug Abuse Patient Records regulations: The Federal rules restrict any use of the information to criminally investigate or prosecute any alcohol or drug abuse patient.[facility] HospitalIn the event this information is protected by the Federal Confidentiality of Alcohol and Drug Abuse Patient Records regulations: The Federal rules restrict any use of the information to criminally investigate or prosecute any alcohol or drug abuse patient.[facility] HospitalIn the event this information is protected by the Federal Confidentiality of Alcohol and Drug Abuse Patient Records regulations: The Federal rules restrict any use of the information to criminally investigate or prosecute any alcohol or drug abuse patient.[facility] HospitalIn the event this information is protected by the Federal Confidentiality of Alcohol and Drug Abuse Patient Records regulations: The Federal rules restrict any use of the information to criminally investigate or prosecute any alcohol or drug abuse patient.[facility] HospitalIn the event this information is protected by the Federal Confidentiality of Alcohol and Drug Abuse Patient Records regulations: The Federal rules restrict any use of the information to criminally investigate or prosecute any alcohol or drug abuse patient.[facility] Reason for Visit (unrecogniz ed section and content) Reason Comments Imm/Inj Specialty Diagnoses / Procedures Referred By Contac t Referred To Contact Diagnoses 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) Procedures DARBEPOETIN [place]AGMAR, [place] [address] [place] [address] Phone: tel: fax: Hematology/Oncology [address] [place] [address] Phone: tel: fax: Referral ID Status Reason Start Date Expiration Date V isits Requested Visits Authorized [id number] Authorized 03/13/2023 10/12/2024 99 99 Reason Comments Physical Therapy Specialty Diagnoses / Procedures Referred By Contac t Referred To Contact Physical Therapy / PHYSICAL THERAPY Diagnoses Left hip pain Procedures CONSULT TO PHYSICAL THERAPY PHYSICAL THERAPY EVALUATION HIGH COMPLEX 45 MINS Podlogar, DORIS Alexander.RANGE SCIENTIST [address] [place] [address] Endy Curran, PT [address] [place] [address] Referral ID Status Reason Start Date Expiration Date Visits Requested Visits Authorized [id number] Authorized PCP Requested Referral Auto-Generate d Referral 04/07/2023 04/06/2024 99 99 Reason Comments PT Progress Note Specialty Diagnoses / Procedures Referred By Contac t Referred To Contact Diagnoses Prostate cancer (HCC) Sanjeev Aranda, DORIS.RANGE SCIENTIST [address] [place] [address] [facility] [address] [place] [address] Referral ID Status Reason Start Date Expiration Date V isits Requested Visits Authorized [id number] Authorized 08/20/2022 11/18/2022 99 99 Specialty Diagnoses / Procedures Referred By Contac t Referred To Contact Diagnoses 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) Procedures DARBEPOETIN DAGMAR, [place] [address] [place] [address] [facility] [address] [place] [address] Referral ID Status Reason Start Date Expiration Date V isits Requested Visits Authorized [id number] Pending Review 03/13/2023 10/22/2023 99 99 Referral ID Status Reason Start Date Expiration Date V isits Requested Visits Authorized [id number] Pending Review 03/13/2023 07/03/2023 99 99 Referral ID Status Reason Start Date Expiration Date V isits Requested Visits Authorized [id number] Authorized 08/20/2022 11/18/2022 99 99 Referral ID Status Reason Start Date Expiration Date V isits Requested Visits Authorized [id number] Pending Review 03/13/2023 05/08/2023 99 99 Reason [...] Problem Specialty Diagnoses / Procedures [facility] Ref[facility] To Contact Urology Diagnoses BPH with elevated PSA Procedures CONSULT TO UROLOGY NEW PATIENT VISIT LEVEL 5 Lillian Clemente MD [address] [place] [address] Referral ID Status Reason Start Date Expiration Date V isits Requested Visits Authorized [id number] Closed PCP Requested Referral 03/13/2021 03/13/2022 1 1 Reason Comments New Patient Up every 1-1 1/2 lexis rs at night to void. Prostate Cancer Specialty Diagnoses / Procedures Referred By Contac t Referred To Contact Medical Oncology / Oncology Diagnoses metastatic prostate cancer/ pt orginally dx with elavted PSA back in mar 2021/ saw urologist at Dr. Sp Mckeon had bx, MRI and Bone scasn through [facility]/recs in careeverywhere/also seeing hem onc Dr. Lillian Clemente at Procedures NEW ONCOLOGY Self, Self Jazlyn Lombardi III, MD [address] [place] [address] Referral ID Status Reason Start Date Expiration Date V isits Requested Visits Authorized [id number] New Request 09/04/2021 09/29/2022 1 1 Reason [...] thrombosed Specialty Diagnoses / Procedures Referred By Contac t Referred To Contact General Surgery Diagnoses External hemorrhoid, thrombosed Procedures CONSULT TO GENERAL SURGERY OFFICE/OUTPATIENT NEW HIGH MDM 60-74 MINUTES Arsalan Ocampo MD [address] [place] [address] Referral ID Status Reason Start Date Expiration Date V isits Requested Visits Authorized [id number] Closed PCP Requested Referral 10/30/2022 10/30/2023 1 1 Reason Onset Date Comments Refill Request 01/14/2023 Reason Onset Date Comments Refill Request 02/18/2023 Reason Comments Patient Update Aranesp order Reason Onset Date Comments Refill Request 05/16/2023 Reason Comments Discussion Oncology Dr. Dc ich encouraged patient to discuss stress test with primary care. Patient is complaining to back pain by waist line that has been intense the last 3-4 days. Reason Comments Reminder Call Reason Onset Date Comments Refill Request 06/17/2023 Reason Comments Patient Question Reason Comments Appointment Reason Comments Patient Update aranes Reason Onset Date Comments Refill Request 09/10/2023 [...] CARDIOLOGY OFFICE/OUTPATIENT NEW HIGH MDM 60 MINUTES PodlogCatherine verduzco APRN.JOI [address] [place] [address] Referral ID Status Reason Start Date Expiration Date V isits Requested Visits Authorized [id number] Closed PCP Requested Referral 06/11/2023 06/10/2024 1 [...] W/CONTRAST MATERIAL Tee Ellis [address] [place] [address] [place] [address] Referral ID Status Reason Start Date Expiration Date V isits Requested Visits Authorized [id number] Closed Auto-Generate d Referral 12/05/2023 01/03/2025 1 1 Referral ID Status Reason Start Date Expiration Date V isits Requested Visits Authorized [id number] Authorized 03/13/2023 12/16/2023 99 99 Reason Comments Pain Left hip/lower back pain for the last 8 months, this flare up is lasting 7 weeks. Noticed it initially started when oncology started a new med. Reason Comments Results hip xray results Referral ID Status Reason Start Date Expiration Date V isits Requested Visits Authorized [id number] Pending Review 03/13/2023 06/24/2024 99 99 Reason Comments PT Eval Reason Comments Groin Pain Reason Comments Insurance Authorization cyclobenzaprine Referral ID Status Reason Start Date Expiration Date V isits Requested Visits Authorized [id number] Authorized 03/13/2023 08/10/2024 99 99 Reason Comments Medicare Wellness Exam Reason Onset Date Comments Refill Request 03/15/2024 Reason Comments Actinic Keratosis Reason Comments New Pain Referred by Dr. Herring Last seen 01/06/17 biceps tendinitis Specialty Diagnoses / Procedures Referred By Contac t Referred To Contact Orthopedics Diagnoses Right hip pain Procedures CONSULT TO ORTHOPAEDICS OFFICE/OUTPATIENT NEW HIGH MDM [address] [place] [address] [place] [address] Referral ID Status Reason Start Date Expiration Date V isits Requested Visits Authorized [id number] Closed PCP Requested Referral 01/21/2024 01/20/2025 1 1 Reason Comments Appointment Appointment cancelle d Reason Comments LESION, SKIN Reason Comments SKIN CANCER Reason Onset Date Comments Refill Request 05/18/2024 Reason Comments Mohs Specialty Diagnoses / Procedures Referred By Contac t Referred To Contact Dermatology Diagnoses Squamous cell carcinoma of scalp Procedures MOHS OFFICE/OUTPATIENT NEW HIGH MDM 60 MINUTES Richie Dejesus MD [address] [place] [address] Phone: tel: fax: Referral ID Status Reason Start Date Expiration Date V isits Requested Visits Authorized [id number] Closed PCP Requested Referral 2024 2025 1 1 Reason Comments Consult Specialty Diagnoses / Procedures Referred By Contac t Referred To Contact Radiation Oncology Diagnoses Squamous cell carcinoma of scalp Procedures RAD/ONC CONSULT OFFICE/OUTPATIENT NEW HIGH MDM 60 MINUTES Madelaine Bronson MD [address] [place] [address] Phone: tel: fax: Referral ID Status Reason Start Date Expiration Date V isits Requested Visits Authorized [id number] Closed PCP Requested Referral 06/17/2024 06/17/2025 1 1 Specialty Diagnoses / Procedures Referred By Contac t Referred To Contact Diagnoses 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) Procedures DARBEPOETIN DAGMAR, NON-ESRD Dereje Herring MD [address] [place] [address] Phone: tel: Hematology/Oncology [address] [place] [address] Phone: tel: fax: Reason Comments Follow Up C/o SOB w/ Mild Acti vityEdema Bilat feet/anklesChronic HS coughDr Heather f/u DX: SOB, Chest painEKG TodayStress 11/12/23ECHO 07/03/23Stress 06/17/23 Reason Comments Imm/Inj SQ Specialty Diagnoses / Procedures Referred By Contac t Referred To Contact Diagnoses Prostate cancer (HCC) Sanjeev Aranda APRN.RANGE SCIENTIST [address] [place] [address] Phone: tel: fax: Sanjeev Aranda, DORIS.RANGE SCIENTIST [address] [place] [address] Phone: tel: fax: Referral ID Status Reason Start Date Expiration Date V isits Requested Visits Authorized [id number] Authorized 03/02/2025 05/31/2025 99 99 Reason Comments Retail Maintenance Technician - Hospital Follow Up Reason Comments Wound Check Reason Comments Consult SURGERY Reason Comments Request Outside Medical Records Reason Comments Consult Cholangitis Specialty Diagnoses / Procedures Referred By Contac t Referred To Contact General Surgery Diagnoses Cholangitis (HCC) Procedures CONSULT TO GENERAL SURGERY OFFICE/OUTPATIENT [facility] 60 MINUTES Bashir Varela, DO [address] [place] [address] Phone: tel: fax: Referral ID Status Reason Start Date Expiration Date V isits Requested Visits Authorized [id number] Closed PCP Requested Referral 09/23/2024 09/23/2025 1 1 Reason Comments Appointment Orders Care Teams (unrecognized sec tion and content) Team Status: Active Member Role Status Dates Dr. López Ocampo MD Primary Care Provider Acti ve Team Status: Inactive Member Role Status Dates Dr. López Ocampo MD Primary Care Provider Acti ve Start: September 18, 2024 End: September 22, 2024 Dr. Augustin Carney MD Emergency Provider Active S tart: September 18, 2024 End: September 22, 2024 Dr. Ivan Nugent MD Admit Provider Active Start: September 18, 2024 End: September 22, 2024 Dr. Ivan Nugent MD Attending Provider Active Start: September 18, 2024 End: September 22, 2024 Dr. Rohit Crawford MD Other Provider Active Sta rt: September 18, 2024 End: September 22, 2024 Team Status: Active Member Role Status Dates Dr. López Ocampo MD Primary Care Provider Acti ve Start: September 18, 2024 Dr. Augustin Carney MD Emergency Provider Active S tart: September 18, 2024 Dr. Ivan Nugent MD Admit Provider Active Start: September 18, 2024 Dr. Ivan Nugent MD Attending Provider Active Start: September 18, 2024 Dr. Ivan Nugent MD Other Provider Active Start: September 18, 2024 Team Status: Active Member Role Status Dates Dr. López Ocampo MD Primary Care Provider Acti ve Start: September 19, 2024 Dr. Augustin Carney MD Emergency Provider Active S tart: September 19, 2024 Dr. Ivan Nugent MD Admit Provider Active Start: September 19, 2024 Dr. Iavn Nugent MD Attending Provider Active Start: September 19, 2024 Dr. Ivan Nugent MD Other Provider Active Start: September 19, 2024 Team Status: Active Member Role Status Dates Dr. López Ocampo MD Primary Care Provider Acti ve Start: September 20, 2024 Dr. Augustin Carney MD Emergency Provider Active S tart: September 20, 2024 Dr. Ivan Nugent MD Admit Provider Active Start: September 20, 2024 Dr. Ivan Nugent MD Attending Provider Active Start: September 20, 2024 Dr. Ivan Nugent MD Other Provider Active Start: September 20, 2024 Team Status: Active Member Role Status Dates Dr. López Ocampo MD Primary Care Provider Acti ve Start: September 21, 2024 Dr. Augustin Carney MD Emergency Provider Active S tart: September 21, 2024 Dr. Ivan Nugent MD Admit Provider Active Start: September 21, 2024 Dr. Ivan Nugent MD Attending Provider Active Start: September 21, 2024 Dr. Ivan Nugent MD Other Provider Active Start: September 21, 2024 Team Status: Active Member Role Status Dates Dr. López Ocampo MD Primary Care Provider Acti ve Start: September 21, 2024 Dr. Augustin Carney MD Emergency Provider Active S tart: September 21, 2024 Dr. Ivan Nugent MD Admit Provider Active Start: September 21, 2024 Dr. Ivan Nugent MD Other Provider Active Start: September 21, 2024 Dr. Rohit Crawford MD Attending Provider Active Start: September 21, 2024 Dr. Rohit Crawford MD Other Provider Active Sta rt: September 21, 2024 Team Status: Active Member Role Status Dates Dr. López Ocampo MD Primary Care Provider Acti ve Start: September 22, 2024 Dr. Augustin Carney MD Emergency Provider Active S tart: September 22, 2024 Dr. Ivan Nugent MD Admit Provider Active Start: September 22, 2024 Dr. Ivan Nugent MD Other Provider Active Start: September 22, 2024 Dr. Rohit Crawford MD Attending Provider Active Start: September 22, 2024 Dr. Rohit Crawford MD Other Provider Active Sta rt: September 22, 2024 Sound Designer Relationship Specialty Start Date End Date Arsalan Ocampo MD [address] [place] [address] PCP - General Family Practice 12/08/20 Natalya Dorsey RN [address] [place] [place] [place] [address] Theater Teacher Hematology/Oncology 05/03/21 Sound Designer Relationship Specialty Start Date End Date Arsalan Ocampo MD [address] [place] [address] PCP - General Family Practice 12/08/20 Natalya Dorsey RN [address] [place] [place] [address] Theater Teacher Hematology/Oncology 05/03/21 Sound Designer Relationship Specialty Start Date End Date Arsalan Ocampo MD [address] [place] [address] PCP - General Family Practice 12/08/20 Natalya Dorsey RN [address] [place] [address] Theater Teacher Hematology/Oncology 05/03/21 Sound Designer Relationship Specialty Start Date End Date Arsalan Ocampo MD [address] [facility] [place] [address] PCP - General Family Practice 12/08/20 Natalya Dorsey, RN [address] [place] [address] Theater Teacher Hematology/Oncology 05/03/21 Sound Designer Relationship Specialty Start Date End Date Arsalan Ocampo MD [address] [facility] [place] [address] PCP - General Family Practice 12/08/20 Natalya Dorsey, RN [address] [place] [address] Theater Teacher Hematology/Oncology 05/03/21 Sound Designer Relationship Specialty Start Date End Date Arsalan Ocampo MD [address] [facility] [place] [address] PCP - General Family Practice 12/08/20 Natalya Dorsey, RN [address] [place] [address] Theater Teacher Hematology/Oncology 05/03/21 Sound Designer Relationship Specialty Start Date End Date Arsalan Ocampo MD [address] [facility] [place] [address] PCP - General Family Practice 12/08/20 Natalya Dorsey, RN [address] [place] [address] Theater Teacher Hematology/Oncology 05/03/21 Sound Designer Relationship Specialty Start Date End Date Arsalan Ocampo MD [address] [facility] [place] [address] PCP - General Family Practice 12/08/20 Natalya Dorsey RN [address] [place] [address] Specialty Retail Maintenance Technician Hematology/Oncology 05/03/21 Sound Designer Relationship Specialty Start Date End Date Arsalan Ocampo MD [address] [facility] [place] [address] PCP - General Family Practice 12/08/20 Natalya Dorsey RN [address] [place] [address] Specialty Retail Maintenance Technician Hematology/Oncology 05/03/21 Sound Designer Relationship Specialty Start Date End Date Arsalan Ocampo MD [address] [place] [address] PCP - General Family Practice 12/08/20 Natalya Dorsey RN [address] [place] [address] Specialty Retail Maintenance Technician Hematology/Oncology 05/03/21 Sound Designer Relationship Specialty Start Date End Date Arsalan Ocampo MD [address] [place] [address] PCP - General Family Practice 12/08/20 Natalya Dorsey RN [address] [place] [address] Specialty Retail Maintenance Technician Hematology/Oncology 05/03/21 Sound Designer Relationship Specialty Start Date End Date Arsalan Ocampo MD [address] [place] [address] PCP - General Family Practice 12/08/20 Natalya Dorsey RN [address] [place] [address] Specialty Retail Maintenance Technician Hematology/Oncology 05/03/21 Sound Designer Relationship Specialty Start Date End Date Arsalan Ocampo MD [address] [facility] [place] [address] PCP - General Family Practice 12/08/20 Natalya Dorsey, RN [address] [place] [address] Specialty Retail Maintenance Technician Hematology/Oncology 05/03/21 Sound Designer Relationship Specialty Start Date End Date Arsalan Ocampo MD [address] [facility] [place] [address] PCP - General Family Practice 12/08/20 Natalya Dorsey, ERIN [address] [place] [address] Specialty Retail Maintenance Technician Hematology/Oncology 05/03/21 Sound Designer Relationship Specialty Start Date End Date Arsalan Ocampo MD [address] [facility] [place] [address] PCP - General Family Practice 12/08/20 Natalya Dorsey, RN [address] [place] [address] Specialty Retail Maintenance Technician Hematology/Oncology 05/03/21 Sound Designer Relationship Specialty Start Date End Date Arsalan Ocampo MD [address] [place] [address] PCP - General Family Medicine 12/08/20 Natalya Dorsey, ERIN [address] [place] [address] Specialty Retail Maintenance Technician Hematology/Oncology 05/03/21 Sound Designer Relationship Specialty Start Date End Date Arsalan Ocampo MD [address] [place] [address] PCP - General Family Medicine 12/08/20 Natalya Dorsey RN [address] [place] [address] Specialty Retail Maintenance Technician Hematology/Oncology 05/03/21 Sound Designer Relationship Specialty Start Date End Date Arsalan Ocampo MD [address] [facility] [place] [address] PCP - General Family Medicine 12/08/20 Natalya Dorsey RN [address] [place] [address] Specialty Retail Maintenance Technician Hematology/Oncology 05/03/21 Sound Designer Relationship Specialty Start Date End Date Arsalan Ocampo MD [address] [facility] [place] [address] PCP - General Family Medicine 12/08/20 Natalya Dorsey RN [address] [place] [address] Specialty Retail Maintenance Technician Hematology/Oncology 05/03/21 Sound Designer Relationship Specialty Start Date End Date Arsalan Ocampo MD [address] [facility] [place] [address] PCP - General Family Medicine 12/08/20 Natalya Dorsey RN [address] [place] [address] Specialty Retail Maintenance Technician Hematology/Oncology 05/03/21 Sound Designer Relationship Specialty Start Date End Date Arsalan Ocampo MD [address] [place] [address] PCP - General Family Medicine 12/08/20 Natalya Dorsey RN [address] [place] [address] Specialty Retail Maintenance Technician Hematology/Oncology 05/03/21 Sound Designer Relationship Specialty Start Date End Date Arsalan Ocampo MD [address] [facility] [place] [address] PCP - General Family Medicine 12/08/20 Natalya Dorsey, RN [address] [place] [address] Specialty Retail Maintenance Technician Hematology/Oncology 05/03/21 Sound Designer Relationship Specialty Start Date End Date Arsalan Ocampo MD [address] [facility] [place] [address] PCP - General Family Medicine 12/08/20 Natalya Dorsey, RN [address] [place] [address] Specialty Retail Maintenance Technician Hematology/Oncology 05/03/21 Sound Designer Relationship Specialty Start Date End Date Arsalan Ocampo MD [address] [place] [address] PCP - General Family Medicine 12/08/20 Natalya Dorsey, RN [address] [place] [address] Specialty Retail Maintenance Technician Hematology/Oncology 05/03/21 Sound Designer Relationship Specialty Start Date End Date Arsalan Ocampo MD [address] [place] [address] PCP - General Family Medicine 12/08/20 Natalya Dorsey, RN [address] [place] [address] Specialty Retail Maintenance Technician Hematology/Oncology 05/03/21 Sound Designer Relationship Specialty Start Date End Date Arsalan Ocampo MD [address] [place] [address] PCP - General Family Medicine 12/08/20 Natalya Dorsey RN [address] [place] [address] Specialty Retail Maintenance Technician Hematology/Oncology 05/03/21 Sound Designer Relationship Specialty Start Date End Date Arsalan Ocampo MD [address] [facility] [place] [address] PCP - General Family Medicine 12/08/20 Natalya Dorsey RN [address] [place] [address] Specialty Retail Maintenance Technician Hematology/Oncology 05/03/21 Sound Designer Relationship Specialty Start Date End Date Arsalan Ocampo MD [address] [facility] [place] [address] PCP - General Family Medicine 12/08/20 Natalya Dorsey RN [address] [place] [address] Specialty Retail Maintenance Technician Hematology/Oncology 05/03/21 Sound Designer Relationship Specialty Start Date End Date Arsalan Ocampo MD [address] [facility] [place] [address] PCP - General Family Medicine 12/08/20 Natalya Dorsey RN [address] [place] [address] Specialty Retail Maintenance Technician Hematology/Oncology 05/03/21 Sound Designer Relationship Specialty Start Date End Date Arsalan Ocampo MD [address] [place] [address] PCP - General Family Medicine 12/08/20 Natalya Dorsey RN [address] [place] [address] Specialty Retail Maintenance Technician Hematology/Oncology 05/03/21 Sound Designer Relationship Specialty Start Date End Date Arsalan Ocampo MD [address] [place] [address] PCP - General Family Medicine 12/08/20 Natalya Dorsey RN [address] [place] [address] Specialty Retail Maintenance Technician Hematology/Oncology 05/03/21 Sound Designer Relationship Specialty Start Date End Date Arsalan Ocampo MD [address] [place] [address] PCP - General Family Medicine 12/08/20 Natalya Dorsey RN [address] [facility] [address] Specialty Retail Maintenance Technician Hematology/Oncology 05/03/21 Sound Designer Relationship Specialty Start Date End Date Arsalan Ocampo MD [address] [place] [address] PCP - General Family Medicine 12/08/20 Natalya Dorsey RN [address] [address] Specialty Retail Maintenance Technician Hematology/Oncology 05/03/21 Sound Designer Relationship Specialty Start Date End Date Arsalan Ocampo MD [address] [place] [address] PCP - General Family Medicine 12/08/20 Natalya Dorsey RN [address] [place] [address] Specialty Retail Maintenance Technician Hematology/Oncology 05/03/21 Sound Designer Relationship Specialty Start Date End Date Arsalan Ocampo MD [address] [place] [address] PCP - General Family Medicine 12/08/20 Natalya Dorsey RN [address] [facility] [place] [address] Specialty Retail Maintenance Technician Hematology/Oncology 05/03/21 Sound Designer Relationship Specialty Start Date End Date Arsalan Ocampo MD [address] [place] [address] PCP - General Family Medicine 12/08/20 Natalya Dorsey RN [address] [facility] [place] [address] Specialty Retail Maintenance Technician Hematology/Oncology 05/03/21 Sound Designer Relationship Specialty Start Date End Date Arsalan Ocampo MD [address] [place] [address] PCP - General Family Medicine 12/08/20 Natalya Dorsey RN [address] [facility] [place] [address] Specialty Retail Maintenance Technician Hematology/Oncology 05/03/21 Sound Designer Relationship Specialty Start Date End Date Arsalan Ocampo MD [address] [place] [address] PCP - General Family Medicine 12/08/20 Natalya Dorsey RN [address] [facility] [address] Specialty Retail Maintenance Technician Hematology/Oncology 05/03/21 Sound Designer Relationship Specialty Start Date End Date Arsalan Ocampo MD [address] [facility] [place] [address] PCP - General Family Medicine 12/08/20 Natalya Dorsey, RN [address] [place] [address] Specialty Retail Maintenance Technician Hematology/Oncology 05/03/21 Sound Designer Relationship Specialty Start Date End Date Arsalan Ocampo MD [address] [facility] [place] [address] PCP - General Family Medicine 12/08/20 Natalya Dorsey, ERIN [address] [place] [address] Specialty Retail Maintenance Technician Hematology/Oncology 05/03/21 Sound Designer Relationship Specialty Start Date End Date Arsalan Ocampo MD [address] [facility] [place] [address] PCP - General Family Medicine 12/08/20 Natalya Dorsey, ERIN [address] [place] [address] Specialty Retail Maintenance Technician Hematology/Oncology 05/03/21 Sound Designer Relationship Specialty Start Date End Date Arsalan Ocampo MD [address] [place] [address] PCP - General Family Medicine 12/08/20 Natalya Dorsey RN [address] [place] [address] Specialty Retail Maintenance Technician Hematology/Oncology 05/03/21 Dereje Herring MD [address] [place] [address] Hematology/Oncology 03/13/23 Sound Designer Relationship Specialty Start Date End Date Arsalan Ocampo MD [address] [place] [address] PCP - General Family Medicine 12/08/20 Natalya Dorsey, ERIN [address] [place] [address] Specialty Retail Maintenance Technician Hematology/Oncology 05/03/21 Dereje Herring MD [address] [place] [address] Hematology/Oncology 03/13/23 Sound Designer Relationship Specialty Start Date End Date Arsalan Ocampo MD [address] [place] [address] PCP - General Family Medicine 12/08/20 Natalya Dorsey RN [address] [place] [address] Specialty Retail Maintenance Technician Hematology/Oncology 05/03/21 Dereje Herring MD [address] [place] [address] Hematology/Oncology 03/13/23 Sound Designer Relationship Specialty Start Date End Date Arsalan Ocampo MD [address] [place] [address] PCP - General Family Medicine 12/08/20 Natalya Dorsey, RN [address] [place] [address] Specialty Retail Maintenance Technician Hematology/Oncology 05/03/21 Dereje Herring MD [address] [place] [address] Hematology/Oncology 03/13/23 Sound Designer Relationship Specialty Start Date End Date Arsalan Ocampo MD [address] [place] [address] PCP - General Family Medicine 12/08/20 Natalya Dorsey RN [address] [place] [address] Specialty Retail Maintenance Technician Hematology/Oncology 05/03/21 Dereje Herring MD [address] [place] [address] Hematology/Oncology 03/13/23 Sound Designer Relationship Specialty Start Date End Date Arsalan Ocampo MD [address] [place] [address] PCP - General Family Medicine 12/08/20 Natalya Dorsey RN [address] [place] [address] Specialty Retail Maintenance Technician Hematology/Oncology 05/03/21 Dereje Herring MD [address] [place] [address] Hematology/Oncology 03/13/23 Sound Designer Relationship Specialty Start Date End Date Arsalan Ocampo MD [address] [place] [address] PCP - General Family Medicine 12/08/20 Natalya Dorsey RN [address] [place] [address] Specialty Retail Maintenance Technician Hematology/Oncology 05/03/21 Dereje Herring MD [address] [place] [address] Hematology/Oncology 03/13/23 Sound Designer Relationship Specialty Start Date End Date Arsalan Ocampo MD [address] [facility] [place] [address] PCP - General Family Medicine 12/08/20 Natalya Dorsey, ERIN [address] [place] [address] Specialty Retail Maintenance Technician Hematology/Oncology 05/03/21 Dereje Herring MD [address] [place] [address] Hematology/Oncology 03/13/23 Sound Designer Relationship Specialty Start Date End Date Arsalan Ocampo MD [address] [facility] [place] [address] PCP - General Family Medicine 12/08/20 Natalya Dorsey, ERIN [address] [place] [address] Specialty Retail Maintenance Technician Hematology/Oncology 05/03/21 Dereje Herring MD [address] [place] [address] Hematology/Oncology 03/13/23 Sound Designer Relationship Specialty Start Date End Date Arsalan Ocampo MD [address] [place] [address] PCP - General Family Medicine 12/08/20 Natalya Dorsey, ERIN [address] [place] [address] Specialty Retail Maintenance Technician Hematology/Oncology 05/03/21 Dereje Herring MD [address] [place] [address] Hematology/Oncology 03/13/23 Sound Designer Relationship Specialty Start Date End Date Arsalan Ocampo MD [address] [place] [address] PCP - General Family Medicine 12/08/20 Natalya Dorsey RN [address] [place] [address] Specialty Retail Maintenance Technician Hematology/Oncology 05/03/21 Dereje Herring MD [address] [place] [address] Hematology/Oncology 03/13/23 Sound Designer Relationship Specialty Start Date End Date Arsalan Ocampo MD [address] [place] [address] PCP - General Family Medicine 12/08/20 Natalya Dorsey RN [address] [place] [address] Specialty Retail Maintenance Technician Hematology/Oncology 05/03/21 Dereje Herring MD [address] [place] [address] Hematology/Oncology 03/13/23 Sound Designer Relationship Specialty Start Date End Date Arsalan Ocampo MD [address] [place] [address] PCP - General Family Medicine 12/08/20 Natalya Dorsey, ERIN [address] [place] [address] Specialty Retail Maintenance Technician Hematology/Oncology 05/03/21 Dereje Herring MD [address] [place] [address] Hematology/Oncology 03/13/23 Sound Designer Relationship Specialty Start Date End Date Arsalan Ocampo MD [address] [place] [address] PCP - General Family Medicine 12/08/20 Natalya Dorsey RN [address] [place] [address] Specialty Retail Maintenance Technician Hematology/Oncology 05/03/21 Dereje Herring MD [address] [place] [address] Hematology/Oncology 03/13/23 Sound Designer Relationship Specialty Start Date End Date Arsalan Ocampo MD [address] [place] [address] PCP - General Family Medicine 12/08/20 Natalya Dorsey RN [address] [place] [address] Specialty Retail Maintenance Technician Hematology/Oncology 05/03/21 Dereje Herring MD [address] [place] [address] Hematology/Oncology 03/13/23 Sound Designer Relationship Specialty Start Date End Date Arsalan Ocampo MD [address] [place] [address] PCP - General Family Medicine 12/08/20 Natalya Dorsey, RN [address] [place] [address] Specialty Retail Maintenance Technician Hematology/Oncology 05/03/21 Dereje Herring MD [address] [place] [address] Hematology/Oncology 03/13/23 Sound Designer Relationship Specialty Start Date End Date Arsalan Ocampo MD [address] [place] [address] PCP - General Family Medicine 12/08/20 Natalya Dorsey RN [address] [place] [address] Specialty Retail Maintenance Technician Hematology/Oncology 05/03/21 Dereje Herring MD [address] [place] [address] Hematology/Oncology 03/13/23 Sound Designer Relationship Specialty Start Date End Date Arsalan Ocampo MD [address] [place] [address] PCP - General Family Medicine 12/08/20 Natalya Dorsey RN [address] [place] [address] Specialty Retail Maintenance Technician Hematology/Oncology 05/03/21 Dereje Herring MD [address] [place] [address] Hematology/Oncology 03/13/23 Sound Designer Relationship Specialty Start Date End Date Arsalan Ocampo MD [address] [place] [address] PCP - General Family Medicine 12/08/20 Natalya Dorsey, RN [address] [place] [address] Specialty Retail Maintenance Technician Hematology/Oncology 05/03/21 Dereje Herring MD [address] [place] [address] Hematology/Oncology 03/13/23 Sound Designer Relationship Specialty Start Date End Date Arsalna Ocampo MD [address] [place] [address] PCP - General Family Medicine 12/08/20 Natalya Dorsey, ERIN [address] [place] [address] Specialty Retail Maintenance Technician Hematology/Oncology 05/03/21 Dereje Herring MD [address] [place] [address] Hematology/Oncology 03/13/23 Sound Designer Relationship Specialty Start Date End Date Arsalan Ocampo MD [address] [place] [address] PCP - General Family Medicine 12/08/20 Natalya Dorsey, RN [address] [place] [address] Specialty Retail Maintenance Technician Hematology/Oncology 05/03/21 Dereje Herring MD [address] [place] [address] Hematology/Oncology 03/13/23 Sound Designer Relationship Specialty Start Date End Date Arsalan Ocampo MD [address] [place] [address] PCP - General Family Medicine 12/08/20 Natalya Dorsey RN [address] [place] [address] Specialty Retail Maintenance Technician Hematology/Oncology 05/03/21 Dereje Herring MD [address] [place] [address] Hematology/Oncology 03/13/23 Sound Designer Relationship Specialty Start Date End Date Arsalan Ocampo MD [address] [place] [address] PCP - General Family Medicine 12/08/20 Natalya Dorsey RN [address] [place] [address] Specialty Retail Maintenance Technician Hematology/Oncology 05/03/21 Dereje Herring MD [address] [place] [address] Hematology/Oncology 03/13/23 Sound Designer Relationship Specialty Start Date End Date Arsalan Ocampo MD [address] [place] [address] PCP - General Family Medicine 12/08/20 Natalya Dorsey RN [address] [place] [address] Specialty Retail Maintenance Technician Hematology/Oncology 05/03/21 Dereje Herring MD [address] [place] [address] Hematology/Oncology 03/13/23 Sound Designer Relationship Specialty Start Date End Date Arsalan Ocampo MD [address] [place] [address] PCP - General Family Medicine 12/08/20 Natalya Dorsey, ERIN [address] [place] [address] Specialty Retail Maintenance Technician Hematology/Oncology 05/03/21 Dereje Herring MD [address] [place] [address] Hematology/Oncology 03/13/23 Sound Designer Relationship Specialty Start Date End Date Arsalan Ocampo MD [address] [place] [address] PCP - General Family Medicine 12/08/20 Natalya Dorsey, ERIN [address] [place] [address] Specialty Retail Maintenance Technician Hematology/Oncology 05/03/21 Dereje Herring MD [address] [place] [address] Hematology/Oncology 03/13/23 Sound Designer Relationship Specialty Start Date End Date Arsalan Ocampo MD [address] [place] [address] PCP - General Family Medicine 12/08/20 Natalya Dorsey, ERIN [address] [place] [address] Specialty Retail Maintenance Technician Hematology/Oncology 05/03/21 Dereje Herring MD [address] [place] [address] Hematology/Oncology 03/13/23 Sound Designer Relationship Specialty Start Date End Date Arsalan Ocampo MD [address] [place] [address] PCP - General Family Medicine 12/08/20 Natalya Dorsey RN [address] [place] [address] Specialty Retail Maintenance Technician Hematology/Oncology 05/03/21 Dereje Herring MD [address] [place] [address] Hematology/Oncology 03/13/23 Sound Designer Relationship Specialty Start Date End Date Arsalan Ocampo MD [address] [place] [address] PCP - General Family Medicine 12/08/20 Natalya Dorsey RN [address] [place] [address] Specialty Retail Maintenance Technician Hematology/Oncology 05/03/21 Dereje Herring MD [address] [place] [address] Hematology/Oncology 03/13/23 Sound Designer Relationship Specialty Start Date End Date Arsalan Ocampo MD [address] [place] [address] PCP - General Family Medicine 12/08/20 Natalya Dorsey RN [address] [place] [address] Specialty Retail Maintenance Technician Hematology/Oncology 05/03/21 Dereje Herring MD [address] [place] [address] Hematology/Oncology 03/13/23 Sound Designer Relationship Specialty Start Date End Date Arsalan Ocampo MD [address] [place] [address] PCP - General Family Medicine 12/08/20 Natalya Dosrey RN [address] [place] [address] Specialty Retail Maintenance Technician Hematology/Oncology 05/03/21 Dereje Herring MD [address] [place] [address] Hematology/Oncology 03/13/23 Sound Designer Relationship Specialty Start Date End Date Arsalan Ocampo MD [address] [place] [address] PCP - General Family Medicine 12/08/20 Natalya Dorsey RN [address] [place] [address] Specialty Retail Maintenance Technician Hematology/Oncology 05/03/21 Dereje Herring MD [address] [place] [address] Hematology/Oncology 03/13/23 Sound Designer Relationship Specialty Start Date End Date Arsalan Ocampo MD [address] [place] [address] PCP - General Family Medicine 12/08/20 Natalya Dorsey, ERIN [address] [place] [address] Specialty Retail Maintenance Technician Hematology/Oncology 05/03/21 Dereje Herring MD [address] [place] [address] Hematology/Oncology 03/13/23 Sound Designer Relationship Specialty Start Date End Date Arsalan Ocampo MD [address] [place] [address] PCP - General Family Medicine 12/08/20 Natalya Dorsey RN [address] [place] [address] Specialty Retail Maintenance Technician Hematology/Oncology 05/03/21 Dereje Herring MD [address] [place] [address] Hematology/Oncology 03/13/23 Sound Designer Relationship Specialty Start Date End Date Arsalan Ocampo MD [address] [place] [address] PCP - General Family Medicine 12/08/20 Natalya Dorsey RN [address] [place] [address] Specialty Retail Maintenance Technician Hematology/Oncology 05/03/21 Dereje Herring MD [address] [place] [address] Hematology/Oncology 03/13/23 Sound Designer Relationship Specialty Start Date End Date Arsalan Ocampo MD [address] [place] [address] PCP - General Family Medicine 12/08/20 Natalya Dorsey, RN [address] [place] [address] Specialty Retail Maintenance Technician Hematology/Oncology 05/03/21 Dereje Herring MD [address] [place] [address] Hematology/Oncology 03/13/23 Sound Designer Relationship Specialty Start Date End Date Arsalan Ocampo MD [address] [place] [address] PCP - General Family Medicine 12/08/20 Natalya Dorsey, ERIN [address] [place] [address] Specialty Retail Maintenance Technician Hematology/Oncology 05/03/21 Dereje Herring MD [address] [place] [address] Hematology/Oncology 03/13/23 Sound Designer Relationship Specialty Start Date End Date Arsalan Ocampo MD [address] [place] [address] PCP - General Family Medicine 12/08/20 Natalya Dorsey, ERIN [address] [place] [address] Specialty Retail Maintenance Technician Hematology/Oncology 05/03/21 Dereje Herring MD [address] [place] [address] Hematology/Oncology 03/13/23 Podlogar, DORIS Alexander.RANGE SCIENTIST [address] [place] [address] Latin Dance Instructor [facility] 03/13/24 Sound Designer Relationship Specialty Start Date End Date Arsalan Ocampo MD [address] [place] [address] PCP - General Family Medicine 12/08/20 Natalya Dorsey, ERIN [address] [place] [address] Specialty Retail Maintenance Technician Hematology/Oncology 05/03/21 Dereje Herring MD [address] [place] [address] Hematology/Oncology 03/13/23 PodlogarCatherine, TISSUE TECHNICIAN.RANGE SCIENTIST [address] [place] [address] Latin Dance InstructorColorado Mental Health [facility] 03/13/24 Sound Designer Relationship Specialty Start Date End Date Arsalan Ocampo MD [address] [place] [address] PCP - General Family Medicine 12/08/20 Natalya Dorsey RN [address] [place] [address] Specialty Retail Maintenance Technician Hematology/Oncology 05/03/21 Dereje Herring MD [address] [place] [address] Hematology/Oncology 03/13/23 PodlogarCatherine TISSUE TECHNICIAN.RANGE SCIENTIST [address] [place] [address] Latin Dance Instructor Family Medicine 03/13/24 Sound Designer Relationship Specialty Start Date End Date Arsalan Ocampo MD [address] [place] [address] PCP - General Family Medicine 12/08/20 Natalya Dorsey RN [address] [place] [address] Specialty Retail Maintenance Technician Hematology/Oncology 05/03/21 Dereje Herring MD [address] [place] [address] Hematology/Oncology 03/13/23 Podlogar, Catherine, TISSUE TECHNICIAN.RANGE SCIENTIST [address] [place] [address] Latin Dance Instructor Family Medicine 03/13/24 Sound Designer Relationship Specialty Start Date End Date Arsalan Ocampo MD [address] [place] [address] PCP - General Family Medicine 12/08/20 Natalya Dorsey RN [address] [place] [address] Specialty Retail Maintenance Technician Hematology/Oncology 05/03/21 Dereje Herring MD [address] [place] [address] Hematology/Oncology 03/13/23 Sound Designer Relationship Specialty Start Date End Date Arsaaln Ocampo MD [address] [place] [address] PCP - General Family Medicine 12/08/20 Natalya Dorsey RN [address] [place] [address] Specialty Retail Maintenance Technician Hematology/Oncology 05/03/21 Dereje Herring MD [address] [place] [address] Hematology/Oncology 03/13/23 Podlogar, Catherine, TISSUE TECHNICIAN.RANGE SCIENTIST [address] [place] [address] Latin Dance Instructor Family Medicine 03/13/24 Sound Designer Relationship Specialty Start Date End Date Arsalan Ocampo MD [address] [place] [address] PCP - General Family Medicine 12/08/20 Natalya Dorsey RN [address] [place] [address] Specialty Retail Maintenance Technician Hematology/Oncology 05/03/21 Dereje Herring MD [address] [place] [address] Hematology/Oncology 03/13/23 Podlogar, Catherine, TISSUE TECHNICIAN.RANGE SCIENTIST [address] [place] [address] Latin Dance Instructor Family Medicine 03/13/24 Sound Designer Relationship Specialty Start Date End Date Arsalan Ocampo MD [address] [place] [address] PCP - General Family Medicine 12/08/20 Natalya Dorsey RN [address] [place] [address] Specialty Retail Maintenance Technician Hematology/Oncology 05/03/21 Dereje Herring MD [address] [place] [address] Hematology/Oncology 03/13/23 PodlogarCatherine APRN.RANGE SCIENTIST [address] [place] [address] Latin Dance Instructor Family Medicine 03/13/24 Sound Designer Relationship Specialty Start Date End Date Arsalan Ocampo MD [address] [place] [address] PCP - General Family Medicine 12/08/20 Natalya Dorsey RN [address] [place] [address] Specialty Retail Maintenance Technician Hematology/Oncology 05/03/21 Dereje Herring MD [address] [place] [address] Hematology/Oncology 03/13/23 PodlogarCatherine APRN.RANGE SCIENTIST [address] [place] [address] Latin Dance Instructor Family Medicine 03/13/24 Sound Designer Relationship Specialty Start Date End Date Arsalan Ocampo MD [address] [place] [address] PCP - General Family Medicine 12/08/20 Natalya Dorsey RN [address] [place] [address] Specialty Retail Maintenance Technician Hematology/Oncology 05/03/21 Dereje Herring MD [address] [place] [address] Hematology/Oncology 03/13/23 PodlogarCatherine APRN.RANGE SCIENTIST [address] [place] [address] Latin Dance Instructor Family Medicine 03/13/24 Sound Designer Relationship Specialty Start Date End Date Arsalan Ocampo MD [address] [place] [address] PCP - General Family Medicine 12/08/20 Natalya Dorsey, ERIN [address] [place] [address] Specialty Retail Maintenance Technician Hematology/Oncology 05/03/21 Dereje Herring MD [address] [place] [address] Hematology/Oncology 03/13/23 PodlogarCatherine APRN.RANGE SCIENTIST [address] [place] [address] Latin Dance Instructor Family Medicine 03/13/24 Sound Designer Relationship Specialty Start Date End Date Arsalan Ocampo MD [address] [place] [address] PCP - General Family Medicine 12/08/20 Natalya Dorsey, RN [address] [place] [address] [address] Specialty Retail Maintenance Technician Hematology/Oncology 05/03/21 Dereje Herring MD [address] [place] [address] Hematology/Oncology 03/13/23 PodlogCatherine verduzco APRN.RANGE SCIENTIST [address] [place] [address] Latin Dance Instructor Family Medicine 03/13/24 Sound Designer Relationship Specialty Start Date End Date Arsalan Ocampo MD [address] [place] [address] PCP - General Family Medicine 12/08/20 Natalya Dorsey, ERIN [address] [place] [address] Specialty Retail Maintenance Technician Hematology/Oncology 05/03/21 Dereje Herring MD [address] [place] [address] Hematology/Oncology 03/13/23 PodlogarCatherine APRN.RANGE SCIENTIST [address] [place] [address] Latin Dance Instructor Family [facility] 03/13/24 Sound Designer Relationship Specialty Start Date End Date Arsalan Ocampo MD [address] [place] [address] PCP - General Family Medicine 12/08/20 Natalya Dorsey, ERIN [address] [place] [address] Specialty Retail Maintenance Technician Hematology/Oncology 05/03/21 Dereje Herring MD [address] [place] [address] Hematology/Oncology 03/13/23 Podlogar, Catherine, TISSUE TECHNICIAN.RANGE SCIENTIST [address] [place] [address] [facility] 03/13/24 Sound Designer Relationship Specialty Start Date End Date Arsalan Ocampo MD [address] [place] [address] PCP - General Family Medicine 12/08/20 Natalya Dorsey RN [address] [place] [address] Specialty Retail Maintenance Technician Hematology/Oncology 05/03/21 Dereje Herring MD [address] [place] [address] Hematology/Oncology 03/13/23 Podlogar, Catherine, TISSUE TECHNICIAN.RANGE SCIENTIST [address] [place] [address] [facility] 03/13/24 Sound Designer Relationship Specialty Start Date End Date Arsalan Ocampo MD [address] [place] [address] PCP - General Family Medicine 12/08/20 Natalya Dorsey RN [address] [place] [address] Specialty Retail Maintenance Technician Hematology/Oncology 05/03/21 Dereje Herring MD [address] [place] [address] Hematology/Oncology 03/13/23 Podlogar, Catherine, TISSUE TECHNICIAN.RANGE SCIENTIST [address] [place] [address] Latin Dance Instructor Family Medicine 03/13/24 Suresh Hodges MD [address] [place] [address] Radiation Oncology 06/18/24 Yasmine Marrero APRN.RANGE SCIENTIST [address] [facility] [place] [address] Latin [facility] Sound Designer Relationship Specialty Start Date End Date Arsalan Ocampo MD [address] [place] [address] PCP - General Family Medicine 12/08/20 Natalya Dorsey RN [address] [place] [address] Specialty Retail Maintenance Technician Hematology/Oncology 05/03/21 Dereje Herring MD [address] [place] [address] Hematology/Oncology 03/13/23 PodlogarCatherine APRN.RANGE SCIENTIST [address] [place] [address] Latin Dance Instructor Family Medicine 03/13/24 Suresh Hodges MD [address] [place] [address] Radiation Oncology 06/18/24 Yasmine Marrero APRN.RANGE SCIENTIST [address] [place] [address] Latin Dance [facility] 06/28/24 Sound Designer Relationship Specialty Start Date End Date Arsalan Ocampo MD [address] [facility] [place] [address] PCP - General Family Medicine 12/08/20 Natalya Dorsey, ERIN [address] [place] [address] Specialty Retail Maintenance Technician Hematology/Oncology 05/03/21 Dereje Herring MD [address] [place] [address] Hematology/Oncology 03/13/23 Catherine Peraza APRN.RANGE SCIENTIST [address] [place] [address] Latin Dance Instructor Family Medicine 03/13/24 Suresh Hodges MD [address] [place] [address] Radiation Oncology 06/18/24 Yasmine Marrero APRN.RANGE SCIENTIST [address] [facility] [place] [address] Latin Dance Instructor Family Medicine 06/28/24 Sound Designer Relationship Specialty Start Date End Date Arsalan Ocampo MD [address] [place] [address] PCP - General Family Medicine 12/08/20 Natalya Dorsey, ERIN [address] [place] [address] Specialty Retail Maintenance Technician Hematology/Oncology 05/03/21 Dereje Herring MD [address] [place] [address] Hematology/Oncology 03/13/23 PodlogarCatherine APRN.RANGE SCIENTIST [address] [facility] [place] [address] Latin Dance [facility]Color[facility] 03/13/24 Suresh Hodges MD [address] [place] [address] Radiation Oncology 06/18/24 Yasmine Marrero APRN.RANGE SCIENTIST [address] [facility] [place] [address] [facility] 06/28/24 Sound Designer Relationship Specialty Start Date End Date Arsalan Ocampo MD [address] [facility] [place] [address] PCP - General Family Medicine 12/08/20 Natalya Dorsey, ERIN [address] [place] [address] Specialty Retail Maintenance Technician Hematology/Oncology 05/03/21 Dereje Herring MD [address] [place] [address] Hematology/Oncology 03/13/23 PodlogarCatherine APRN.RANGE SCIENTIST [address] [facility] [place] [address] [facility] 03/13/24 Suresh Hodges MD [address] [place] [address] Radiation Oncology 06/18/24 Yasmine Marrero APRN.RANGE SCIENTIST [address] [facility] [place] [address] Latin Dance Instructor Family [facility] [place] 06/28/24 Sound Designer Relationship Specialty Start Date End Date Arsalan Ocampo MD [address] [facility] [place] [address] PCP - General Family Medicine 12/08/20 Natalya Dorsey, ERIN [address] [place] [address] Specialty Retail Maintenance Technician Hematology/Oncology 05/03/21 Dereje Herring MD [address] [place] [address] Hematology/Oncology 03/13/23 PodlogarCatherine APRN.RANGE SCIENTIST [address] [place] [address] Latin Dance Instructor Family Medicine 03/13/24 Suresh Hodges MD [address] [place] [address] Radiation Oncology 06/18/24 Yasmine Marrero APRN.RANGE SCIENTIST [address] [facility] [place] [address] Latin Dance Instructor [facility] 06/28/24 Sound Designer Relationship Specialty Start Date End Date Arsalan Ocampo MD [address] [place] [address] PCP - General Family Medicine 12/08/20 Natalya Dorsey RN [address] [place] [address] Specialty Retail Maintenance Technician Hematology/Oncology 05/03/21 Dereje Herring MD [address] [place] [address] Hematology/Oncology 03/13/23 PodlogarCatherine APRN.RANGE SCIENTIST [address] [place] [address] Latin Dance Instructor Family Medicine 03/13/24 Suresh Hodges MD [address] [place] [address] Radiation Oncology 06/18/24 Yasmine Marrero APRN.RANGE SCIENTIST [address] [facility] [place] [address] [facility] 06/28/24 Sound Designer Relationship Specialty Start Date End Date Arsalan Ocampo MD [address] [place] [address] PCP - General Family Medicine 12/08/20 Natalya Dorsey, RN [address] [place] [address] Specialty Retail Maintenance Technician Hematology/Oncology 05/03/21 Dereje Herring MD [address] [place] [address] Hematology/Oncology 03/13/23 PodlogarCatherine APRN.RANGE SCIENTIST [address] [place] [address] [facility] Family Medicine 03/13/24 Suresh Hodges MD [address] [place] [address] Radiation Oncology 06/18/24 Sound Designer Relationship Specialty Start Date End Date Arsalan Ocampo MD [address] [place] [address] PCP - General Family Medicine 12/08/20 Natalya Dorsey RN [address] [place] [address] Specialty Retail Maintenance Technician Hematology/Oncology 05/03/21 Dereje Herring MD [address] [place] [address] Hematology/Oncology 03/13/23 PodlogarCatherine APRN.RANGE SCIENTIST [address] [place] [address] Latin Dance Instructor Family Medicine 03/13/24 Suresh Hodges MD [address] [place] [address] Radiation Oncology 06/18/24 Team Status: Active Member Role Status Dates Dr. López Ocampo MD Primary Care Provider Acti ve Start: September 18, 2024 Dr. Augustin Carney MD Emergency Provider Active S tart: September 18, 2024 Dr. Ivan Nugent MD Admit Provider Active Start: September 18, 2024 Dr. Ivan Nugent MD Attending Provider Active Start: September 18, 2024 Sound Designer Relationship Specialty Start Date End Date Arsalan Ocampo MD [address] [place] [address] PCP - General Family Medicine 12/08/20 Natalya Dorsey RN [address] [place] [address] Specialty Retail Maintenance Technician Hematology/Oncology 05/03/21 Dereje Herring MD [address] [place] [address] Hematology/Oncology 03/13/23 Podlogar, DORIS Alexander.RANGE SCIENTIST [address] [place] [address] Latin Dance Instructor Family Medicine 03/13/24 Suresh Hodges MD [address] [place] [address] Radiation Oncology 06/18/24 Sound Designer Relationship Specialty Start Date End Date Arsalan Ocampo MD [address] [place] [address] PCP - General Family Medicine 12/08/20 Natalya Dorsey, RN [address] [place] [address] Specialty Retail Maintenance Technician Hematology/Oncology 05/03/21 Dereje Herring MD [address] [place] [address] Hematology/Oncology 03/13/23 Podlogar, DORIS Alexander.RANGE SCIENTIST [address] [place] [address] Latin Dance Instructor Family Medicine 03/13/24 Suresh Hodges MD [address] [place] [address] Radiation Oncology 06/18/24 Yasmine Marrero APRN.RANGE SCIENTIST [address] [facility] [place] [address] Latin Dance Instructor Family Medicine 09/16/24 Sound Designer Relationship Specialty Start Date End Date Arsalan Ocampo MD [address] [facility] [place] [address] PCP - General Family Medicine 12/08/20 Natalya Dorsey, ERIN [address] [place] [address] Specialty Retail Maintenance Technician Hematology/Oncology 05/03/21 Dereje Herring MD [address] [place] [address] Hematology/Oncology 03/13/23 PodlogarCatherine TISSUE TECHNICIAN.RANGE SCIENTIST [address] [facility] [place] [address] Latin Dance Instructor Family Medicine 03/13/24 Suresh Hodges MD [address] [place] [address] Radiation Oncology 06/18/24 Yasmine Marrero, TISSUE TECHNICIAN.RANGE SCIENTIST [address] [facility] [place] [address] Latin Dance Instructor Family Medicine 09/16/24 Sound Designer Relationship Specialty Start Date End Date Arsalan Ocampo MD [address] [place] [address] PCP - General Family Medicine 12/08/20 Natalya Dorsey, ERIN [address] [place] [address] Specialty Retail Maintenance Technician Hematology/Oncology 05/03/21 Dereje Herring MD [address] [place] [address] Hematology/Oncology 03/13/23 PodlogarCatherine APRN.RANGE SCIENTIST [address] [place] [address] Latin Dance Instructor Family Medicine 03/13/24 Suresh Hodges MD [address] [place] [address] Radiation Oncology 06/18/24 Sound Designer Relationship Specialty Start Date End Date Arsalan Ocampo MD [address] [place] [address] PCP - General Family Medicine 12/08/20 Natalya Dorsey, RN [address] [place] [address] Specialty Retail Maintenance Technician Hematology/Oncology 05/03/21 Dereje Herring MD [address] [place] [address] Hematology/Oncology 03/13/23 PodlogarCatherine APRN.RANGE SCIENTIST [address] [place] [address] [facility] Medicine 03/13/24 Suresh Hodges MD [address] [place] [address] Radiation Oncology 06/18/24 Yasmine Marrero APRN.RANGE SCIENTIST [address] [facility] [place] [address] Latin Dance Instructor Family [facility] 09/16/24 Sound Designer Relationship Specialty Start Date End Date Arsalan Ocampo MD [address] [facility] [place] [address] PCP - General Family Medicine 12/08/20 Natalya Dorsey, ERIN [address] [place] [address] Specialty Retail Maintenance Technician Hematology/Oncology 05/03/21 Dereje Herring MD [address] [place] [address] Hematology/Oncology 03/13/23 PodlogCatherine verduzco APRN.RANGE SCIENTIST [address] [place] [address] Latin Dance Instructor Family Medicine 03/13/24 Suresh Hodges MD [address] [place] [address] Radiation Oncology 06/18/24 Yasmine Marrero APRN.RANGE SCIENTIST [address] [facility] [place] [address] Latin Dance Instructor Family [facility] 09/16/24 Sound Designer Relationship Specialty Start Date End Date Arsalan Ocampo MD [address] [place] [address] PCP - General Family Medicine 12/08/20 Natalya Dorsey RN [address] [place] [address] Specialty Retail Maintenance Technician Hematology/Oncology 05/03/21 Dereje Herring MD [address] [place] [address] Hematology/Oncology 03/13/23 PodlogarCatherine APRN.RANGE SCIENTIST [address] [place] [address] Latin Dance Instructor Family Medicine 03/13/24 Suresh Hodges MD [address] [place] [address] Radiation Oncology 06/18/24 Yasmine Marrero APRN.RANGE SCIENTIST [address] [place] [address] [facility] 09/16/24 Sound Designer Relationship Specialty Start Date End Date Arsalan Ocampo MD [address] [place] [address] PCP - General Family Medicine 12/08/20 Natalya Dorsey, RN [address] [place] [address] Specialty Retail Maintenance Technician Hematology/Oncology 05/03/21 Dereje Herring MD [address] [place] [address] Hematology/Oncology 03/13/23 PodlogarCatherine APRN.RANGE SCIENTIST [address] [place] [address] [facility] Family Medicine 03/13/24 Suresh Hodges MD [address] [place] [address] Radiation Oncology 06/18/24 Yasmine Marrero TISSUE TECHNICIAN.RANGE SCIENTIST [address] [place] [address] Latin Dance Instructor Family Medicine 09/16/24 Sound Designer Relationship Specialty Start Date End Date Arsalan Ocampo MD [address] [facility] [place] [address] PCP - General Family Medicine 12/08/20 Natalya Dorsey, RN [address] [place] [address] Specialty Retail Maintenance Technician Hematology/Oncology 05/03/21 Dereje Herring MD [address] [place] [address] Hematology/Oncology 03/13/23 PodlogarCatherine APRN.RANGE SCIENTIST [address] [place] [address] Latin Dance Instructor Family Medicine 03/13/24 Suresh Hodges MD [address] [place] [address] Radiation Oncology 06/18/24 Yasmine Marrero TISSUE TECHNICIAN.RANGE SCIENTIST [address] [facility] [place] [address] Latin Dance Instructor Family Medicine 09/16/24 Sound Designer Relationship Specialty Start Date End Date Arsalan Ocampo MD [address] [facility] [place] [address] PCP - General Family Medicine 12/08/20 Natalya Dorsey RN [address] [place] [address] Specialty Retail Maintenance Technician Hematology/Oncology 05/03/21 Dereje Herring MD [address] [place] [address] Hematology/Oncology 03/13/23 PodlogarCatherine APRN.RANGE SCIENTIST [address] [place] [address] Latin Dance Instructor Family Medicine 03/13/24 Suresh Hodges MD [address] [place] [address] Radiation Oncology 06/18/24 Yasmine Marrero APRN.RANGE SCIENTIST [address] [facility] [place] [address] Latin Dance Instructor Family Medicine 09/16/24 Sound Designer Relationship Specialty Start Date End Date Arsalan Ocampo MD [address] [place] [address] PCP - General Family Medicine 12/08/20 Natalya Dorsey RN [address] [place] [address] Specialty Retail Maintenance Technician Hematology/Oncology 05/03/21 Dereje Herring MD [address] [place] [address] Hematology/Oncology 03/13/23 PodlogarCatherine APRN.RANGE SCIENTIST [address] [facility] [place] [address] Latin Dance Instructor Family Medicine 03/13/24 Suresh Hodges MD [address] [place] [address] Radiation Oncology 06/18/24 Yasmine Marrero APRN.RANGE SCIENTIST [address] [place] [address] [facility]24 Team Status: Active Member Role/Relationship Status Dates Dr. López Ocampo MD Primary Care Provider Acti ve Team Status: Inactive Member Role/Relationship Status Dates Dr. López Ocampo MD Primary Care Provider Acti ve Start: September 18, 2024 End: September 22, 2024 Dr. Augustin Carney MD Emergency Provider Active S tart: September 18, 2024 End: September 22, 2024 Dr. Ivan Nugent MD Admit Provider Active Start: September 18, 2024 End: September 22, 2024 Dr. Ivan Nugent MD Attending Provider Active Start: September 18, 2024 End: September 22, 2024 Dr. Rohit Crawford MD Other Provider Active Sta rt: September 18, 2024 End: September 22, 2024 Team Status: Active Member Role/Relationship Status Dates Dr. López Ocampo MD Primary Care Provider Acti ve Start: September 18, 2024 Dr. Augustin Carney MD Emergency Provider Active S tart: September 18, 2024 Dr. Ivan Nugent MD Admit Provider Active Start: September 18, 2024 Dr. Ivan Nugent MD Attending Provider Active Start: September 18, 2024 Dr. Ivan Nugent MD Other Provider Active Start: September 18, 2024 Team Status: Active Member Role/Relationship Status Dates Dr. López Ocampo MD Primary Care Provider Acti ve Start: September 19, 2024 Dr. Augustin Carney MD Emergency Provider Active S tart: September 19, 2024 Dr. Ivan Nugent MD Admit Provider Active Start: September 19, 2024 Dr. Ivan Nugent MD Attending Provider Active Start: September 19, 2024 Dr. Ivan Nugent MD Other Provider Active Start: September 19, 2024 Team Status: Active Member Role/Relationship Status Dates Dr. López Ocampo MD Primary Care Provider Acti ve Start: September 20, 2024 Dr. Augustin Carney MD Emergency Provider Active S tart: September 20, 2024 Dr. Ivan Nugent MD Admit Provider Active Start: September 20, 2024 Dr. Ivan Nugent MD Attending Provider Active Start: September 20, 2024 Dr. Ivan Nugent MD Other Provider Active Start: September 20, 2024 Team Status: Active Member Role/Relationship Status Dates Dr. López Ocampo MD Primary Care Provider Acti ve Start: September 21, 2024 Dr. Augustin Carney MD Emergency Provider Active S tart: September 21, 2024 Dr. Ivan Nugent MD Admit Provider Active Start: September 21, 2024 Dr. Ivan Nugent MD Attending Provider Active Start: September 21, 2024 Dr. Ivan Nugent MD Other Provider Active Start: September 21, 2024 Team Status: Active Member Role/Relationship Status Dates Dr. López Ocampo MD Primary Care Provider Acti ve Start: September 21, 2024 Dr. Augustin Carney MD Emergency Provider Active S tart: September 21, 2024 Dr. Ivan Nugent MD Admit Provider Active Start: September 21, 2024 Dr. Ivan Nugent MD Referring Provider Active Start: September 21, 2024 Dr. Ivan Nugent MD Other Provider Active Start: September 21, 2024 Dr. Rohit Crawford MD Attending Provider Active Start: September 21, 2024 Dr. Rohit Crawford MD Other Provider Active Sta rt: September 21, 2024 Team Status: Active Member Role/Relationship Status Dates Dr. López Ocampo MD Primary Care Provider Acti ve Start: September 22, 2024 Dr. Augustin Carney MD Emergency Provider Active S tart: September 22, 2024 Dr. Ivan Nugent MD Admit Provider Active Start: September 22, 2024 Dr. Ivan Nugent MD Other Provider Active Start: September 22, 2024 Dr. Rohit Crawford MD Attending Provider Active Start: September 22, 2024 Dr. Rohit Crawford MD Other Provider Active Sta rt: September 22, 2024 Team Status: Active Member Role/Relationship Status Dates Dr. López Ocampo MD Primary Care Provider Acti ve Start: September 22, 2024 Dr. Augustin Carney MD Emergency Provider Active S tart: September 22, 2024 Dr. Ivan Nugent MD Admit Provider Active Start: September 22, 2024 Dr. Ivan Nugent MD Attending Provider Active Start: September 22, 2024 Dr. Ivan Nugent MD Other Provider Active Start: September 22, 2024 Dr. Rohit Crawford MD Other Provider Active Sta rt: September 22, 2024 Team Status: Inactive Member Role/Relationship Status Dates Dr. López Ocampo MD Primary Care Provider Acti ve Start: October 14, 2024 End: October 14, 2024 Dr. López Ocampo MD Referring Provider Active Start: October 14, 2024 End: October 14, 2024 Dr. Lydia Mauricio MD Attending Provider Active Start: October 14, 2024 End: October 14, 2024 Inactive Administered Medications - up to 3 most recent administrations Administered Medications (un recognized section and content) Medication Order MAR Action Action Date Dose Rate Site denosumab 120 mg injection (XGEVA) 120 mg, SUBCUTANEOUS, ONCE, 1 dose, On Fri05/08/23 at 0930, REFRIGERATE Given 05/08/2023 9:21 AM EST 120 mg Arm, Left Inactive Administered Medications - up to 3 most recent administrations Medication Order MAR Action Action Date Dose Rate Site Darbepoetin Dagmar In Polysorbat 200 mcg injection (ARANESP) 200 mcg, SUBCUTANEOUS, ONCE, 1 dose, On Roseann 06/05/23 at 0930, Protect from light REFRIGERATE Given 06/05/2023 9:50 AM EST 200 mcg Arm, Right Goals (unrecognized section and content) Goals may be documented in a n alternate section FOR RECORDS PERTAINING TO PATIENTS WHO ARE [...] BE BASED ON THE PRIMARY CLINICAL RECORDS. [facility]. provides no warranty or guarantee of the accuracy or completeness of information in this document.
[2024-10-15 05:19] LABS: Mucous, Urine 0 SEEN /hpf (<or=2+); Red Blood Cells-Urine 0 SEEN /hpf (0-5); Squamous Epithelial Cells - UA 0 SEEN /hpf (0-5)
[2024-10-15 05:30] LABS: Differential Indicated SCAN CRITERIA MET
[2024-10-15 05:30] LABS: Color, Urine Yellow (Yellow); Glucose, Dipstick Normal (Normal); Ketone-Dipstick Negative (Negative); Leukocyte Esterase-Dipstick Negative /ul (Negative); Nitrite-Dipstick Negative (Negative); Occult Blood-Urine Negative /ul (Negative); Protein-Dipstick Negative (Negative); Specific Gravity, Urine 1.010 (1.002-1.030); Urine Bilirubin Dipstick Negative (Negative)
--- NOTE | 2024-10-15 05:30 | CT_ITS ---
PROCEDURE: ABDOMEN/PELVIS W IV CONT ONLY 10/15/2024 REASON FOR EXAM: ? ASCENDING CHOLANGITIS TECHNIQUE: ABDOMEN/PELVIS W IV CONT ONLY Coronal and Sagittal reconstruction series were provided. CONTRAST: VOLUME: mL One or more dose reduction techniques were used (e.g., Automated exposure control, adjustment of the mA and/or kV according to patient size, use of iterative reconstruction technique. RADIATION DOSE SUMMARY: CTDlvol:mGy DLP: mGycm COMPARISON: 09-14-2024 FINDINGS: Resolution of the bilateral pleural effusion as well as the related compression atelectasis. Resolution of the gall bladder mural edema. Resolution of the mild ascites. Average sized liver showing homogenous parenchymal attenuation. No dilated intra or extra-hepatic biliary tracts. Gall bladder showing no radiodense calculi. No abnormal mural thickening. Clear surrounding fat planes with no sizeable collections. Atrophic changes of the pancreas with clear surrounding fat planes. The spleen, adrenal glands and IVC are unremarkable. Vascular atheromatous calcifications. Both kidneys are of average size and showing smooth outline with preserved parenchymal thickness. No renal calculi. No hydronephrosis. Perinephric fat stranding. Distension of the urinary bladder showing minimal uniform mural thickening with no obvious masses. Mildly enlarged prostate with calcifications. The appendix is not identified Colonic fecal loading. The small bowel loops are unremarkable. The stomach is unremarkable. No ascites or free air. No obvious pathologically enlarged lymph nodes. Scanned osseous structures show multiple sclerotic osseous lesions, possibly metastatic. Thoracolumbar spondylosis. CT/Abdomen/Pelvis W IV Cont ONLY IMPRESSION: Resolution of the bilateral pleural effusion as well as the related compression atelectasis. Resolution of the gall bladder mural edema. Resolution of the mild ascites. Stable rest of the study findings as detailed Reading [facility]
--- NOTE | 2024-10-15 05:32 | RAD_ITS ---
PROCEDURE: CHEST 1 VIEW (PORTABLE) 10/15/2024 REASON FOR EXAM: FEVER TECHNIQUE: Frontal view of the chest. COMPARISON: 09/18/2024 FINDINGS: Heart: Stable cardiac size. Lungs: Bilateral basal faint infiltrates.Minimal bilateral pleural effusion. No pneumothorax Bones: Right 8th rib sclerotic lesion, Bones scan is advised. RAD/Chest 1 View (Portable) IMPRESSION: Bilateral basal faint infiltrates.Minimal bilateral pleural effusion. Right 8th rib sclerotic lesion, Bones scan is advised. Reading Location[facility] [id number]
[2024-10-15 05:56] LABS: AST(SGOT) 23 U/L (<=37); Alanine Aminotransfer ALT/SGPT 19 U/L (<=46); Albumin, Serum 3.9 g/dL (3.4-4.8); Alkaline Phosphatase 129 U/L (40-129); Anion Gap 11 (5-15); BUN 20 mg/dL (4-19); BUN/Creat Ratio 20.6 RATIO (10-20); Bilirubin, Direct 0.68 mg/dL (0.00-0.30); Calcium,Total 9.1 mg/dL (7.6-11.0); Carbon Dioxide 24.4 mmol/L (21.0-32.0); Chloride 101 mmol/L (98-108); Estimated Creatinine Clearance 61.47 ml/min (50-250); Globulin 3.2 g/dL (2.2-4.2); Glucose 103 mg/dL (70-99); Lipase 22 U/L (13-75); Potassium 4.0 mmol/L (3.3-5.1); Procalcitonin 0.87 ng/mL (<=0.10)
[2024-10-15 06:13] LABS: Anisocytosis 1+
[2024-10-15] MEDS: Piperacil/Tazobactam 4.5 GM in 0.9% Normal Saline (100mL MB+) 100 ML IV (06:23)
--- NOTE | 2024-10-15 06:36 | US_ITS ---
PROCEDURE: ABDOMEN LIMITED 10/15/2024 REASON FOR EXAM: ABD PAIN TECHNIQUE: ABDOMEN LIMITED COMPARISON: 10/15/2024 FINDINGS: Liver: Grossly normal size and echotexture. Measures 14.9 cm. Gallbladder: No stones. Negative Renee's sign. Wall 3 mm. Common bile duct: 3 mm No abnormalities. . Pancreas: Tail is not seen. Head and body are normal. Kidneys: The right kidney measures 11.7x4.7x5 cm. Cortex 1.6 cm. No hydronephrosis, No mass. No stones. US/Abdomen Limited IMPRESSION: No definite acute abnormalities. Reading Location[facility]
[2024-10-15] MEDS: Vancomycin HCl 1,500 MG in 0.9% Normal Saline (500mL Bag) 500 ML 250 MG IV (06:55)
--- NOTE | 2024-10-15 08:10 | EDS_ITS ---
HPI History of Present Illness Chief Complaint: Weakness Informant: patient and spouse/S.O. Narrative Narrative: Patient is a 69-year-old male with past medical history of prostate cancer. He was admitted roughly 1 month ago secondary to concern for sepsis from acute acalculous cholecystitis. Patient and state that there was concern he would need to have his gallbladder removed after the potential infection resolved. They state that he was discharged from the hospital and took his antibiotics as directed. However he has not had his gallbladder removed yet. He states starting last night approximately last 12 hours she has had increased fatigue and weakness and was noted to have a low-grade fever at home. He states that there are no real associated symptoms such as cough congestion dysuria vomiting or diarrhea. He states there is no true belly pain at this time either. states she believes he is developing jaundice as he did at his previous admission and with concern he is developing a repeat infection was brought in for evaluation [facility] Medical History Open wound of scalp with complication Wound dehiscence Surgical wound breakdown Cancer Dizziness Home Medications ?Medication ?Instructions ?Recorded ?Last Taken ?Type abiraterone 250 mg tablet 1,000 mg PO DAILY prostate c ancer 12/11/23 09/17/24 History atorvastatin 20 mg tablet 20 mg PO QHS cholesterol 08/2809/17/24 History prednisone 5 mg tablet 5 mg PO BID prostate 4 09/17/24 History tamsulosin 0.4 mg capsule 0.4 mg PO DAILY prostate 08/2809/17/24 History leuprolide acetate (6 month) 45 mg 45 mg subcut .COMPL EX 02/05/24 09/15/24 History (6 month) subcutaneous syringe (Eligard) darbepoetin dagmar in polysorbat See Rx Instructions IV .COMPLEX 09/18/24 Unknown History cimetidine 200 mg tablet 200 mg PO DAILY 10/15/24 Unk nown History (Heartburn Relief (cimetidine)) darbepoetin dagmar in polysorbat 25 25 mcg subcut QMONTH 10/15/24 Unknown History mcg/mL in polysorbate injection (Aranesp) Allergy/AdvReac Type Severity Reaction Status Date / Time No Known Allergies Allergy Verified 10/15/24 04:35 Family History (Updated 09/18/24 @ 16:[address] 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 Status post Mohs surgery Social History Smoking Status: Never smoker ROS ROS ED Constitutional Constitutional ED: Reports chills and fever(s) Eyes Eyes: Denies change in vision ENT ENT ED: Denies sore throat Cardiovascular Cardiovascular: Denies chest pain Respiratory/Chest Respiratory/Chest: Denies cough or dyspnea Gastrointestinal Gastrointestinal: Denies abdominal pain, constipation, diarrhea, nausea or vomiting Genitourinary Genitourinary ED: Denies dysuria Musculoskeletal Musculoskeletal: Denies myalgias Integumentary Denies rash Neurologic Neurologic: Reports weakness; Denies headache(s) Hematologic/Lymphatic Hematologic/Lymphatic: Denies easy bleeding or easy bruising EXAM Physical Exam Const Vital Signs: 10/15/24 04:36 10/15/24 05:37 10/15/24 06:00 Temperature 100.2 F H 99.9 F H 99.9 F H Temperature Source Oral Oral Oral Pulse Rate 114 H 108 H 106 H Respiratory Rate 22 H 25 H 27 H Blood Pressure 125/71 H 94/52 L 93/51 L Blood Pressure Mean 89 66 65 Blood Pressure Position Blood Pressure Location Pulse Ox 96 96 97 Oxygen Delivery Method Room Air Room Air Room Air 10/15/24 06:09 10/15/24 06:16 10/15/24 06:24 Temperature 100.0 F H Temperature Source Oral Pulse Rate 107 H 104 H 103 H Respiratory Rate 27 H 26 H 22 H Blood Pressure 83/52 L 83/52 L Blood Pressure Mean 61 62 Blood Pressure Position Blood Pressure Location Pulse Ox 96 95 93 Oxygen Delivery Method Room Air 10/15/24 06:25 10/15/24 06:30 10/15/24 06:45 Temperature Temperature Source Pulse Rate 98 Respiratory Rate 21 H Blood Pressure 83/52 L 83/50 L 95/52 L Blood Pressure Mean 61 60 66 Blood Pressure Position Blood Pressure Location Pulse Ox 94 93 Oxygen Delivery Method Room Air 10/15/24 08:00 10/15/24 08:23 Temperature 98.6 F Temperature Source Oral Pulse Rate 93 92 Respiratory Rate 18 Blood Pressure 78/46 L 79/43 L Blood Pressure Mean 56 55 Blood Pressure Position Supine Blood Pressure Location Right Arm Pulse Ox 96 Oxygen Delivery Method Room Air Positive well nourished and well developed General Appearance ED: well developed; Negative for pallor HEENT Reports dry mucous membranes HEENT Narrative: Normocephalic atraumatic No tongue or lip swelling no oral lesions no airway edema or compromise No secondary findings in the posterior pharynx to suggest Mucous membranes are mildly dry and tacky Mouth ED: Yes dry mucous membranes Mouth: dry mucous membranes Eyes PERRL and EOMs intact bilaterally Eyes Narrative: There is faint scleral icterus noted bilaterally General Eye ED: Yes scleral icterus Neck supple Neck Narrative: No nuchal rigidity or meningeal signs Chest Wall palpation of chest normal Resp normal respiratory effort and clear to auscultation bilaterally Resp Narrative: Breath sounds are diminished throughout with faint rhonchi noted bilateral lower lobes However no signs of respiratory distress Cardio regular rhythm Rate: tachycardic and other Other Details: Tachycardic rate with regular rhythm Radial and carotid pulses are equal and symmetric GI normal to inspection, nondistended, normoactive bowel sounds, non-tender, non- distended and no masses GI Narrative: Abdomen is soft nontender nondistended with normal active bowel sounds No voluntary guarding or rigidity No pulsatile mass or fluid wave Negative Renee sign Auscultation: normoactive bowel sounds Palpation: soft Back/Spine no CVA tenderness Extremity normal to inspection Extremity Narrative: No asymmetric edema no pitting edema negative Homans' sign bilaterally Neuro oriented x3, CN's II-XII intact bilaterally and no sensory deficits noted Sensorium / Orientation: alert Motor Exam: strength 5/5 throughout Psych mental status grossly normal Skin no rashes or lesions noted and no wounds General Skin Exam: Negative for jaundice or pallor MDM MDM MDM Narrative Medical decision making narrative: Patient arrived to the ER with low-grade fever and was mildly tachycardic but otherwise blood pressure was normotensive. With his recent admission for acute acalculous cholecystitis and sepsis there is high likelihood that this is the cause once again. Therefore basic blood work was ordered with blood cultures and a CT scan was obtained to check for potential signs of infection. The patient's white count and neutrophil count are normal his lactic acid is also normal however his procalcitonin is elevated concerning or consistent with potential infection. Urine sample shows no sign of infection. His total bilirubin and direct bilirubin are elevated which could correlate with his mild scleral icterus and potential reinfection of the gallbladder. Chest x-ray officially question developing infiltrate but there is no pneumonia just atelectasis noted on the lower lobes of the CT scan. Also the patient does not have a cough or congestion or hypoxia going against this as the cause of his fever. Despite 3 L of IV fluid resuscitation and improvement of the patient's fever his blood pressure continued to drop and this was also confirmed manually. Other than the blood pressure dropping he is awake and alert and in no acute distress. Therefore the decision was made to start peripheral Levophed and not place a central line at this time. The case was discussed with the general surgeon on-call Dr. Villarreal. He reviewed today's images as well as his images from last month and agrees with radiology that the images are markedly improved today and secondary to that he does not feel that the gallbladder is the source of the patient's symptoms. He states that because of that he does not feel there is any intervention that he needs to provide at this time. However he states he is agreeable to potentially removing the gallbladder if the patient's images and labs progressed to a similar appearance to last month. The case was then discussed with the hospitalist and she was informed of this conversation as well as the persistent hypotension despite fluid resuscitation and she agrees accept the patient to the ICU for continued care. History & Record Review Discussion w/independent historian: Patient and Significant other Lab Data Attestation: I reviewed the patient's lab results. Labs: Laboratory Results - last 24 hr 10/15/24 10/15/24 04:47 05:10 WBC 8.2 RBC 3.91 L Hgb 9.8 L Hct 32.2 L MCV 82.4 MCH 25.1 L MCHC 30.4 L RDW Std Deviation 61.2 H RDW Coeff of Lydia 20.5 H Plt Count 129 L MPV 9.0 Immature Gran % (Auto) 0.400 Neut % (Auto) 84.8 H Lymph % (Auto) 10.6 L [place] % (Auto) 3.5 Eos % (Auto) 0.6 Baso % (Auto) 0.1 Absolute Neuts (auto) 6.9 Absolute Lymphs (auto) 0.87 Nucleated RBC % 0 Anisocytosis 1+ Sodium 137 Potassium 4.0 Chloride 101 Carbon Dioxide 24.4 Anion Gap 11 BUN 20 H Creatinine 0.99 Estim Creat Clear Calc 61.47 Est GFR (MDRD) Non-Af 81 BUN/Creatinine Ratio 20.6 H Glucose 103 H Lactic Acid 1.8 Calcium 9.1 Total Bilirubin 1.46 H Direct Bilirubin 0.68 H AST 23 ALT 19 Alkaline Phosphatase 129 Total Protein 7.1 Albumin 3.9 Globulin 3.2 Lipase 22 Procalcitonin 0.87 H Urine Color Yellow Urine Clarity Clear Urine pH 7.0 Ur Specific [place] 1.010 Urine Protein Negative Urine Glucose (UA) Normal Urine Ketones Negative Urine Occult Blood Negative Urine Nitrite Negative Urine Bilirubin Negative Urine Urobilinogen Normal Ur Leukocyte Esterase Negative Urine RBC 0 SEEN Urine WBC 0 SEEN Ur Squamous Epith Cells 0 SEEN Urine Bacteria RARE Urine Mucus 0 SEEN Radiography Diagnostic Testing: Clinical Impression(s) from Imaging Studies Abdomen/Pelvis CT 10/15/24 05:30 IMPRESSION: Resolution of the bilateral pleural effusion as well as the related compression atelectasis. Resolution of the gall bladder mural edema. Resolution of the mild ascites. Stable rest of the study findings as detailed Reading Location: [place] [address] Chest X-Ray 10/15/24 05:32 IMPRESSION: Bilateral basal faint infiltrates.Minimal bilateral pleural effusion. Right 8th rib sclerotic lesion, Bones scan is advised. Reading Location: [place] [address] Abdomen Ultrasound 10/15/24 06:36 IMPRESSION: No definite acute abnormalities. Reading Location: [place] [address] Chest x-ray as interpreted by the emergency medicine system reveals atelectasis in the bilateral bases without acute infiltrate Critical Care Time Critical Care Time: Yes Critical care time (excluding procedures): Discussing w/Patient &/or Family/Public Administration Professor, Discussing w/Consultants and - (Please note critical care time of 37 minutes) Discharge Plan Triage Chief Complaint: Weakness ED Provider: Sukhwinder Sierra Dx/Rx/DC Orders Clinical Impression: Scleral icterus, Acute hypotension, Pyrexia, SIRS (systemic inflammatory response syndrome), Prostate cancer Prescriptions: No Action Eligard (6 month) 45 mg syringe 45 mg subcut .COMPLEX Rx Instructions: 45 mg subcutaneously EVERY 6 MONTHS; cimetidine [Heartburn Relief (cimetidine)] 200 mg tablet 200 mg PO DAILY Rx Instructions: administer with meals Aranesp (in polysorbate) 25 mcg/mL solution 25 mcg subcut QMONTH atorvastatin 20 mg tablet 20 mg PO QHS prednisone 5 mg tablet 5 mg PO BID tamsulosin 0.4 mg capsule 0.4 mg PO DAILY abiraterone 250 mg tablet 1,000 mg PO DAILY darbepoetin dagmar in polysorbat [Aranesp (in polysorbate)] See Rx Instructions IV .COMPLEX Patient Comments: PT UNSURE OF STRENGTH, BUT TOOK THIS MONTH (SEPTEMBER 2024) Rx Instructions: intravenously EVERY MONTH; Primary Care Provider: López Ocampo Referrals: López Ocampo MD [Primary Care Provider] - Print Language: [place] Citizen Disposition Disposition: Acute Care Hospital [facility]
--- NOTE | 2024-10-15 08:20 | PCM.HP.STD ---
HPI - General General Date of Admission: 10/15/24 Date of Service: 10/15/24 Chief Complaint: Fever, chills, fatigue, malaise. 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 with ongoing localized skin care, CKD stage II per GFR trending, Chronic anemia, BPH with obstructive pathology, Stage IV Prostate CA w/ metastatic disease to the bone on immunotherapy/hormonal therapy, recent discharge 09/22/2024 following admission and evaluation for acute acalculous cholecystitis with associated severe sepsis with acute kidney injury and bacteremia complicated by underlying stage IV prostate cancer with metastatic disease to the bone on immunotherapy and hormonal therapy with blood cultures noted to grow Streptococcus intermedius and methylol bacterium treated with IV Zosyn eventually transition to discharge to cefdinir 300 mg twice daily with stress dose steroids with planned follow-up at the [facility] with general surgery given [facility] surgery felt patient was too complicated with Case reviewed with his oncologist at discharge who now Aida presents to the [facility] ED on 10/15/24 with history of onset fatigue, malaise and fevers prompting ED return. Workup in the ED included T 100.2 max in the ED, heart rate 114, BP 125/71, respiratory rate 22, 96% on room air with most recent repeat vitals heart rate 98, BP 95/52 with map of 66, respiratory rate 21, 93% on room air with noted most low BP in the ED 83/50 with a MAP of 60, CBC with WC 8.2, hemonine 0.8, MCV 82.4, platelet 129 without marked shift, CMP with BUN/creatinine 20/0.99, GFR 81, glucose 103, lactic acid 1.8, T. bili 1.46, T. bili 0.68 otherwise hepatic profile unremarkable, procalcitonin 0.87, urinalysis unremarkable, chest x-ray with bibasilar faint infiltrates, minimal bilateral pleural effusion, right eighth rib with a sclerotic lesion, CT abdomen and pelvis with resolution of previous bilateral pleural effusions as well as related compressive atelectasis, resolution of previous gallbladder mural edema, resolution of previous mild ascites, abdominal ultrasound with no definitive acute abnormalities with a negative sonographic Renee sign with wall of the gallbladder 3 mm with no stones identified, blood culture x 2 pending per ED, urine culture pending per ED. upon transition from the ED to the ICU patient does report feeling improved with less fatigue and malaise. [facility] Medical History Former tobacco use Acalculous cholecystitis Prostate cancer metastatic to bone CKD (chronic kidney disease), stage II Anemia Open wound of scalp with complication Home Medications ?Medication ?Instructions ?Recorded ?Last Taken ?Type abiraterone 250 mg tablet 1,000 mg PO DAILY prostate cancer 12/11/23 09/17/24 History atorvastatin 20 mg tablet 20 mg PO QHS cholesterol 12/11/23 09/17/24 History prednisone 5 mg tablet 10 mg PO BID prostate 12/11/23 09/17/24 History tamsulosin 0.4 mg capsule 0.4 mg PO DAILY prostate 12/11/23 09/17/24 History leuprolide acetate (6 month) 45 mg 45 mg subcut .COMPLEX 02/05/24 09/15/24 History (6 month) subcutaneous syringe ([employer]) calcium 600 mg (as 2 tab PO DAILY calcium 10/15/24 Unknown History carbonate)-vitamin D3 5 mcg (200 unit) tablet (Calcium 600 + D(3)) cimetidine 200 mg tablet 200 mg PO DAILY 10/15/24 Unknown History (Heartburn Relief (cimetidine)) darbepoetin dagmar in polysorbat 25 25 mcg subcut QMONTH 10/15/24 Unknown History mcg/mL in polysorbate injection (Aranesp) Allergy/AdvReac Type Severity Reaction Status Date / Time No Known Allergies Allergy Verified 10/15/24 04:35 Family History (Updated 10/15/24 @ 11:[address] Lety Augustine MD) Father Prostate cancer Hypertension Mother No problems noted. 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 Lety Augustine MD) household members: spouse Smoking Status: Former smoker how long ago did patient quit smoking: Quit ~ 40 years prior, smoked <1 ppd in college. alcohol intake: current alcohol intake frequency: holidays/special occasions only ROS ROS Narrative Admission Review of Systems: CONSTITUTIONAL: No weight loss, + fever, chills, weakness or fatigue. HEENT: Eyes: No visual loss, blurred vision, double vision or yellow sclerae. Ears, Nose, Throat: No hearing loss, sneezing, congestion, runny nose or sore throat. SKIN: No rash or itching except + anterior scalp wound, well-appearing with ongoing outpatient dressing changes. CARDIOVASCULAR: No chest pain, chest pressure or chest discomfort, palpitations, edema, orthopnea, syncopal events. RESPIRATORY: No shortness of breath, cough or sputum, wheezing, hemoptysis. GASTROINTESTINAL: + Decreased appetite. No nausea, vomiting or diarrhea, abdominal pain, melena, BRBPR. GENITOURINARY: No dysuria, frequency, urgency or retention. NEUROLOGICAL: No headache, dizziness, syncope, paralysis, ataxia, numbness or tingling in the extremities, focal weakness, change in bowel or bladder control, seizure. MUSCULOSKELETAL: + muscle, back pain, joint pain or stiffness. HEMATOLOGIC: + Chronic anemia, easy bleeding/bruising. LYMPHATICS: No enlarged nodes. No history of splenectomy. PSYCHIATRIC: No history of depression or anxiety. ENDOCRINOLOGIC: No reports of sweating, cold or heat intolerance. No polyuria or polydipsia. ALLERGIES: No history of asthma, hives, eczema or rhinitis. Vital Signs Vital Signs Vital Signs: 10/15/24 04:36 10/15/24 05:37 10/15/24 06:00 Temperature 100.2 F H 99.9 F H 99.9 F H Temperature Source Oral Oral Oral Pulse Rate 114 H 108 H 106 H Respiratory Rate 22 H 25 H 27 H Blood Pressure 125/71 H 94/52 L 93/51 L Blood Pressure Mean 89 66 65 Pulse Ox 96 96 97 Oxygen Delivery Method Room Air Room Air Room Air 10/15/24 06:09 10/15/24 06:16 10/15/24 06:24 Temperature 100.0 F H Temperature Source Oral Pulse Rate 107 H 104 H 103 H Respiratory Rate 27 H 26 H 22 H Blood Pressure 83/52 L 83/52 L Blood Pressure Mean 61 62 Pulse Ox 96 95 93 Oxygen Delivery Method Room Air 10/15/24 06:25 10/15/24 06:30 10/15/24 06:45 Temperature Temperature Source Pulse Rate 98 Respiratory Rate 21 H Blood Pressure 83/52 L 83/50 L 95/52 L Blood Pressure Mean 61 60 66 Pulse Ox 94 93 Oxygen Delivery Method Room Air 10/15/24 08:00 Temperature 98.6 F Temperature Source Oral Pulse Rate 93 Respiratory Rate 18 Blood Pressure 78/46 L Blood Pressure Mean 56 Pulse Ox 96 Oxygen Delivery Method Room Air Weight Weight: 139 lb 15.896 oz Body Mass Index (BMI) 22.6 Physical Exam Narrative Physical Examination: General: Awake, alert, oriented x 3 and cooperative, laying in the bed, fatigued appearing, mildly pale but notes he feels better than initial arrival in the ED. Skin: Normal color, normal turgor, no icterus, no cyanosis except for occasional stage ecchymoses, abrasion as well as scalp wound which is chronic status post previous squamous cell carcinoma skin resection. HEENT: AT aside from see skin/NC, EOMI, PERRLA, mildly dry MM, no carotid bruits or JVD noted. Lungs: Mildly diminished, greater bases, appropriate effort, no rales, ronchi or wheezing. Heart: Regular rate and rhythm; no gallop, rub audible. Abdomen: Soft, NTTP including no discomfort in the right upper quadrant or epigastric region, ND, normal BS, no appreciated HSM. Extremities: No cyanosis, no clubbing, no distal edema noted. Neurological: Patient awake, alert, oriented as noted, cognitive function intact; pupils equally reactive to light and accommodation, cranial nerves grossly normal, moving all 4 extremities, no focal deficits, strength moderately global decrease secondary to acute presentation. Psychiatric: Affect appears mildly flat, fatigue but notes feeling improved since initial ED arrival, no acute evidence of depressive or anxiety feelings. Results Lab / Micro Data 10/15/24 04:47 10/15/24 04:47 Labs: Laboratory Results - last 24 hr 10/15/24 04:47: WBC 8.2, RBC 3.91 L, Hgb 9.8 L, Hct 32.2 L, MCV 82.4, MCH 25.1 L, MCHC 30.4 L, RDW Std Deviation 61.2 H, RDW Coeff of Lydia 20.5 H, Plt Count 129 L, MPV 9.0, Immature Gran % (Auto) 0.400, Neut % (Auto) 84.8 H, Lymph % (Auto) 10.6 L, [place] % (Auto) 3.5, Eos % (Auto) 0.6, Baso % (Auto) 0.1, Absolute Neuts (auto) 6.9, Absolute Lymphs (auto) 0.87, Nucleated RBC % 0, Anisocytosis 1+, Sodium 137, Potassium 4.0, Chloride 101, Carbon Dioxide 24.4, Anion Gap 11, BUN 20 H, Creatinine 0.99, Estim Creat Clear Calc 61.47, Est GFR (MDRD) Non-Af 81, BUN/Creatinine Ratio 20.6 H, Glucose 103 H, Lactic Acid 1.8, Calcium 9.1, Total Bilirubin 1.46 H, Direct Bilirubin 0.68 H, AST 23, ALT 19, Alkaline Phosphatase 129, Total Protein 7.1, Albumin 3.9, Globulin 3.2, Lipase 22, Procalcitonin 0.87 H 10/15/24 05:10: Urine Color Yellow, Urine Clarity Clear, Urine pH 7.0, Ur Specific [place] 1.010, Urine Protein Negative, Urine Glucose (UA) Normal, Urine Ketones Negative, Urine Occult Blood Negative, Urine Nitrite Negative, Urine Bilirubin Negative, Urine Urobilinogen Normal, Ur Leukocyte Esterase Negative, Urine RBC 0 SEEN, Urine WBC 0 SEEN, Ur Squamous Epith Cells 0 SEEN, Urine Bacteria RARE, Urine Mucus 0 SEEN Imaging Radiology Impression Abdomen/Pelvis CT 10/15/24 05:30 IMPRESSION: Resolution of the bilateral pleural effusion as well as the related compression atelectasis. Resolution of the gall bladder mural edema. Resolution of the mild ascites. Stable rest of the study findings as detailed Reading Location: [place] [id number] Chest X-Ray 10/15/24 05:32 IMPRESSION: Bilateral basal faint infiltrates.Minimal bilateral pleural effusion. Right 8th rib sclerotic lesion, Bones scan is advised. Reading Location: [place] [address] Abdomen Ultrasound 10/15/24 06:36 IMPRESSION: No definite acute abnormalities. 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 with ongoing localized skin care, CKD stage II per GFR trending, Chronic anemia, BPH with obstructive pathology, Stage IV Prostate CA w/ metastatic disease to the bone on immunotherapy/hormonal therapy, recent discharge 09/22/2024 following admission and evaluation for acute acalculous cholecystitis with associated severe sepsis with acute kidney injury and bacteremia complicated by underlying stage IV prostate cancer with metastatic disease to the bone on immunotherapy and hormonal therapy with blood cultures noted to grow Streptococcus intermedius and methylol bacterium treated with IV Zosyn eventually transition to discharge to cefdinir 300 mg twice daily with stress dose steroids with planned follow-up at the [facility] with general surgery given [facility] surgery felt patient was too complicated with Case reviewed with his oncologist at discharge who now Aida presents to the [facility] ED on 10/15/24 with history of onset fatigue, malaise and fevers prompting ED return. #1. Shock, Undifferentiated, concern for potentially Septic but unclear source, recent presentation Acute acalculous cholecystitis but current presentation without abdominal pain/normal GB US: Will admit to the ICU, will maintain on broad-spectrum antibiotic therapy with IV Zosyn and IV vancomycin, MRSA screen requested, will initiate on stress dose steroids additionally, will maintain on norepinephrine, will request PICC line placement, chenille machine operator consulted and following, blood culture x 2 as well as urine culture pending per ED, will request respiratory viral panel, sputum culture, urine antigens but again at this point no obvious source as surgery did review imaging in the ED and did not feel his gallbladder was the cause of his current presentation, infectious disease consulted and following. Cosyntropin testing ordered per chenille machine operator in case of adrenal insufficiency as etiology. #2. Stage IV prostate cancer with metastatic disease to the bone: Following with oncology on immunotherapy/immunotherapy, temporally holding, magnesium and phosphorus levels requested, complicates presentation. #3. Chronic normocytic anemia: Admission hemoglobin 9.8, MCV 82.4, baseline hemoglobin primarily 8-9, will continue to trend. #4. Chronic Kidney Disease Stage II per GFR trending: Admission BUN/Cr 20/0.99, GFR 81, baseline renal function primarily 0.7-0.9 but has vacillated, repeat BMP in AM. #5. BPH with obstructive pathology: Will continue patient on Flomax regimen, monitor for retention. #6. Hyperlipidemia: Given mild hyperbilirubinemia will temporarily hold statin therapy, resume once appropriate. #7. Hx Squamous cell carcinoma of the scalp in situ status post resection: Last dressing change the day prior per discussion with patient, does not appear infected, discussed with nursing staff and requested that they continue dressing changes per his home regimen. #8. Former tobacco use: Encourage continued tobacco cessation. #9. DVT prophylaxis: Lovenox. #10. CODE status: Patient PARVEZ is his and living will is currently in place. Discussed CODE status at length including difference between FULL code, DNR-CCA and DNR-CC status. Following discussions about the differences in these status, requested DNR-CCA, no intubation status. Advanced Care Planning Face to Face Time: 16 minutes. Sepsis Attestation Sepsis Alert: Yes Sepsis Attestation: Agree w/Sepsis Date exam was performed: 10/15/24 Time exam was performed: 08:20 Possible Source of Sepsis: Unknown Sepsis Organ Dysfunction Criteria Present: SBP < 90 mmHg or MAP < 65 mmHg Fluid Resuscitation Fluid resuscitation indicated?: Yes Fluid Resuscitation ordered: 30 ml/kg fluid bolus ordered Sepsis Note Date exam was performed: 10/15/24 Time exam was performed: 08:20 Sepsis Attestation: Sepsis re-evaluation was performed Response to fluids: Non Fluid responsive hypotension and Vasopressors started Charges/Coding Visit Charges Inpatient E&M: 92253 Init Hosp L3 Procedures Hospitalists Procedures: 69522 Advncd Care Plan 30 Min
[2024-10-15] MEDS: Norepinephrine 8 MG in 0.9% Normal Saline (250mL Bag) 242 ML 9.4 MG CONT INF (08:23)
--- NOTE | 2024-10-15 10:00 | EX.PCM.CONCC ---
Assessment & Plan Assessment/Plan (1) Hypotension: PLAN: Plan RECOMMENDATIONS: 1. Complete fluid resuscitation as ordered. 2. Continue Levophed. Start scheduled midodrine. 3. Continue stress dose steroids. 4. Broad-spectrum antimicrobials, pending infectious workup. 5. DVT prophylaxis as ordered. IMPRESSIONS: 1. Undifferentiated shock Potential etiologies include sepsis versus hypovolemia versus relative adrenal insufficiency. PE seems unlikely, given that the patient is not hypoxemic. The patient did receive IV fluid resuscitation in the emergency department. He was ultimately placed on vasopressor support. The patient did confirm that his blood pressures are typically low at baseline. He is mentating appropriately with a normal lactate. Therefore, recommend titrating Levophed to maintain a systolic pressure at or above 90 mmHg. The patient will be continued on empiric broad-spectrum antimicrobials. However, no definitive source of infection has yet to be identified. Lastly, given that the patient is on corticosteroids, stress dose steroids will be initiated. Cosyntropin stimulation test is pending. 2. History of stage IV prostate CA on therapy through [facility] oncology/chronic anemia and thrombocytopenia/BPH Complicates care, management, recovery and prognosis. Continue home medications as indicated. TIME: 35 minutes of critical care time, independent of procedures, was spent addressing the patient's undifferentiated shock, review of all data and collaboration with care team. HPI Consult Data Date of Consult: 10/15/24 HPI Narrative Reason for Consultation: Hypotension HPI Narrative: The patient is a 69-year-old male, with a history as outlined below, who presented to the emergency department on October 15 with generalized malaise, fatigue and subjective fever. The patient was recently admitted to the hospital September 20 with dizziness and hypotension. Workup during that hospitalization revealed findings concerning for possible acalculous cholecystitis. The patient was noted to be bacteremic with blood cultures positive for Streptococcus intermedius and haemophilus parainfluenza. The patient was treated with antimicrobial therapy and was placed on steroids as there was concern that the hormonal therapy that he was receiving for his prostate cancer could lead to glucocorticoid deficiency. The patient is currently being followed by Dr. Villarreal of oncology at [facility] due to a history of stage IV prostate cancer currently on immunotherapy. On presentation to the emergency department, the patient was documented to have a fever of 100.2 ?F. He was tachycardic and tachypneic with an initial blood pressure of 125/71 mmHg. However, during his emergency department course, the patient became progressively hypotensive. He did receive IV fluid resuscitation and was ultimately placed on Levophed. White blood cell count was noted to be normal. Hemoglobin was stable. Platelet count was stable at 129,000, in the setting of a history of thrombocytopenia. Chemistry profile was unremarkable. Creatinine was within normal limits. Lactate was normal. Total bilirubin was increased at 1.46. AST and ALT were normal. Lipase was normal. Procalcitonin was only mildly elevated at 0.87. Urine analysis was unremarkable. CT abdomen/pelvis demonstrated no significant abnormalities. Chest x-ray demonstrated no acute cardiopulmonary process. Abdominal ultrasound was unremarkable. The patient did receive antimicrobial therapy and was subsequently admitted to the medical intensive care unit for further management. [facility] Medical History Open wound of scalp with complication Wound dehiscence Surgical wound breakdown Cancer Dizziness Home Medications ?Medication ?Instructions ?Recorded ?Last Taken ?Type abiraterone 250 mg tablet 1,000 mg PO DAILY prostate cancer 12/11/23 09/17/24 History atorvastatin 20 mg tablet 20 mg PO QHS cholesterol 12/11/23 09/17/24 History prednisone 5 mg tablet 10 mg PO BID prostate 12/11/23 09/17/24 History tamsulosin 0.4 mg capsule 0.4 mg PO DAILY prostate 12/11/23 09/17/24 History leuprolide acetate (6 month) 45 mg 45 mg subcut .COMPLEX 02/05/24 09/15/24 History (6 month) subcutaneous syringe ([employer]) calcium 600 mg (as 2 tab PO DAILY calcium 10/15/24 Unknown History carbonate)-vitamin D3 5 mcg (200 unit) tablet (Calcium 600 + D(3)) cimetidine 200 mg tablet 200 mg PO DAILY 10/15/24 Unknown History (Heartburn Relief (cimetidine)) darbepoetin dagmar in polysorbat 25 25 mcg subcut QMONTH 10/15/24 Unknown History mcg/mL in polysorbate injection (Aranesp) Allergy/AdvReac Type Severity Reaction Status Date / Time No Known Allergies Allergy Verified 10/15/24 04:35 Family History Other Cancer Surgical History 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 (SCCIS) of skin Status post Mohs surgery Social History Smoking Status: Never smoker ROS ROS Narrative 10 systems were reviewed with pertinent positives as noted in the HPI above. Physical Exam Const alert, oriented x3 and no apparent distress Constitutional Narrative: is present at the bedside. General Appearance: Negative for ill appearing HEENT normocephalic, head/scalp atraumatic and moist oral mucous membranes Eyes PERRL, EOMs intact bilaterally and conjunctivae normal Neck supple General: trachea midline Chest inspection of chest normal Resp normal respiratory effort Auscultation: Negative for rales, rhonchi or wheezes Cardio regular rate and regular rhythm GI normal to inspection, nondistended, normoactive bowel sounds and non-tender Extremity no clubbing, cyanosis or edema Skin no rashes or lesions noted Neuro CN's II-XII intact bilaterally, moves all extremities and no focal motor deficits Psych cooperative and affect normal Lab / Micro Data 10/15/24 04:47 10/15/24 04:47 Labs: Laboratory Results - last 24 hr 10/15/24 04:47: WBC 8.2, RBC 3.91 L, Hgb 9.8 L, Hct 32.2 L, MCV 82.4, MCH 25.1 L, MCHC 30.4 L, RDW Std Deviation 61.2 H, RDW Coeff of Lydia 20.5 H, Plt Count 129 L, MPV 9.0, Immature Gran % (Auto) 0.400, Neut % (Auto) 84.8 H, Lymph % (Auto) 10.6 L, [place] % (Auto) 3.5, Eos % (Auto) 0.6, Baso % (Auto) 0.1, Absolute Neuts (auto) 6.9, Absolute Lymphs (auto) 0.87, Nucleated RBC % 0, Anisocytosis 1+, Sodium 137, Potassium 4.0, Chloride 101, Carbon Dioxide 24.4, Anion Gap 11, BUN 20 H, Creatinine 0.99, Estim Creat Clear Calc 61.47, Est GFR (MDRD) Non-Af 81, BUN/Creatinine Ratio 20.6 H, Glucose 103 H, Lactic Acid 1.8, Calcium 9.1, Total Bilirubin 1.46 H, Direct Bilirubin 0.68 H, AST 23, ALT 19, Alkaline Phosphatase 129, Total Protein 7.1, Albumin 3.9, Globulin 3.2, Lipase 22, Procalcitonin 0.87 H 10/15/24 05:10: Urine Color Yellow, Urine Clarity Clear, Urine pH 7.0, Ur Specific [place] 1.010, Urine Protein Negative, Urine Glucose (UA) Normal, Urine Ketones Negative, Urine Occult Blood Negative, Urine Nitrite Negative, Urine Bilirubin Negative, Urine Urobilinogen Normal, Ur Leukocyte Esterase Negative, Urine RBC 0 SEEN, Urine WBC 0 SEEN, Ur Squamous Epith Cells 0 SEEN, Urine Bacteria RARE, Urine Mucus 0 SEEN Imaging Radiology Impression Abdomen/Pelvis CT 10/15/24 05:30 IMPRESSION: Resolution of the bilateral pleural effusion as well as the related compression atelectasis. Resolution of the gall bladder mural edema. Resolution of the mild ascites. Stable rest of the study findings as detailed Reading Location: [place] [address] Chest X-Ray 10/15/24 05:32 IMPRESSION: Bilateral basal faint infiltrates.Minimal bilateral pleural effusion. Right 8th rib sclerotic lesion, Bones scan is advised. Reading Location: [place] [address] Abdomen Ultrasound 10/15/24 06:36 IMPRESSION: No definite acute abnormalities. Reading Location: [place] [address] Charges/Coding Procedures Hospitalists Procedures: [id number] Critical Care 1st Hr
--- NOTE | 2024-10-15 10:44 | PCM.CONS.GEN ---
Assessment & Plan Assessment/Plan (1) Prostate cancer: (2) Septic shock: PLAN: Admit 3 weeks ago with suspected cholecystitis and strep and haemophilus bacteremia. LFTs improved, CT and US done here with no sign of infection. No focal symptoms other than back pain, but no tenderness on exam. UAgs neg. Cont empiric vanc/zosyn. Will follow, thank you, d/w Dr. Augustine and Dr. Melvin HPI Consult Data Date of Consult: 10/15/24 HPI Narrative Reason for Consultation: septic shock HPI Narrative: SARAH CORDERO, is a 69 M with metastatic prostate cancer, on immunotherapy, recent discharge 09/22 for suspected cholecystitis with bacteremia (+) strep intermedius and Haeomphilus. Sent home on po cefdinir x8 days. Reports completing treatment, feeling fine since then, until past few days some low back pain, then yesterday new fever, chills, sweats, weakness. Came to ED, admitted to icu with septic shock on vanc/zosyn. Feeling ok, no dysuria, no cough, no abd pain, no n/v/d, no rash, no body aches. No sick contacts. Full ROS performed and neg except as noted above. Some mild headache s/p Mohs to R scalp. [facility] Medical History Open wound of scalp with complication Wound dehiscence Surgical wound breakdown Cancer Dizziness Home Medications ?Medication ?Instructions ?Recorded ?Last Taken ?Type abiraterone 250 mg tablet 1,000 mg PO DAILY prostate cancer 12/11/23 09/17/24 History atorvastatin 20 mg tablet 20 mg PO QHS cholesterol 12/11/23 09/17/24 History prednisone 5 mg tablet 5 mg PO BID prostate 12/11/23 09/17/24 History tamsulosin 0.4 mg capsule 0.4 mg PO DAILY prostate 12/11/23 09/17/24 History leuprolide acetate (6 month) 45 mg 45 mg subcut .COMPLEX 02/05/24 09/15/24 History (6 month) subcutaneous syringe (EliGET IT Mobiled) calcium 600 mg (as 2 tab PO DAILY calcium 10/15/24 Unknown History carbonate)-vitamin D3 5 mcg (200 unit) tablet (Calcium 600 + D(3)) cimetidine 200 mg tablet 200 mg PO DAILY 10/15/24 Unknown History (Heartburn Relief (cimetidine)) darbepoetin dagmar in polysorbat 25 25 mcg subcut QMONTH 10/15/24 Unknown History mcg/mL in polysorbate injection (Aranesp) Allergy/AdvReac Type Severity Reaction Status Date / Time No Known Allergies Allergy Verified 10/15/24 04:35 Family History Other Cancer Surgical History 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 (SCCIS) of skin Status post Mohs surgery Social History Smoking Status: Never smoker Physical Exam Const alert, oriented x3 and no apparent distress General Appearance: cooperative HEENT normocephalic and head/scalp atraumatic HEENT Narrative: Bandage on R scalp, no redness Eyes PERRL and EOMs intact bilaterally Neck supple and No nodes Resp normal air movement and clear to auscultation bilaterally Cardio regular rate and regular rhythm GI soft to palpation, non-tender and non-distended GI Narrative: No flank or lumbar tenderness Extremity General Extremity: Negative for edema Skin no rashes or lesions noted Neuro CN's II-XII intact bilaterally Lab / Micro Data Attestation: I reviewed the patient's lab results. 10/15/24 04:47 10/15/24 04:47 Labs: Laboratory Results - last 24 hr 10/15/24 04:47: WBC 8.2, RBC 3.91 L, Hgb 9.8 L, Hct 32.2 L, MCV 82.4, MCH 25.1 L, MCHC 30.4 L, RDW Std Deviation 61.2 H, RDW Coeff of Lydia 20.5 H, Plt Count 129 L, MPV 9.0, Immature Gran % (Auto) 0.400, Neut % (Auto) 84.8 H, Lymph % (Auto) 10.6 L, [place] % (Auto) 3.5, Eos % (Auto) 0.6, Baso % (Auto) 0.1, Absolute Neuts (auto) 6.9, Absolute Lymphs (auto) 0.87, Nucleated RBC % 0, Anisocytosis 1+, Sodium 137, Potassium 4.0, Chloride 101, Carbon Dioxide 24.4, Anion Gap 11, BUN 20 H, Creatinine 0.99, Estim Creat Clear Calc 61.47, Est GFR (MDRD) Non-Af 81, BUN/Creatinine Ratio 20.6 H, Glucose 103 H, Lactic Acid 1.8, Calcium 9.1, Total Bilirubin 1.46 H, Direct Bilirubin 0.68 H, AST 23, ALT 19, Alkaline Phosphatase 129, Total Protein 7.1, Albumin 3.9, Globulin 3.2, Lipase 22, Procalcitonin 0.87 H 10/15/24 05:10: Urine Color Yellow, Urine Clarity Clear, Urine pH 7.0, Ur Specific [place] 1.010, Urine Protein Negative, Urine Glucose (UA) Normal, Urine Ketones Negative, Urine Occult Blood Negative, Urine Nitrite Negative, Urine Bilirubin Negative, Urine Urobilinogen Normal, Ur Leukocyte Esterase Negative, Urine RBC 0 SEEN, Urine WBC 0 SEEN, Ur Squamous Epith Cells 0 SEEN, Urine Bacteria RARE, Urine Mucus 0 SEEN Micro: Microbiology 10/15/24 09:45 Urine Catheter - Catheter Legionella Antigen - Final 10/15/24 09:45 Urine Catheter - Catheter Streptococcus pneumoniae Antigen (M - Final Imaging Radiology Impression Abdomen/Pelvis CT 10/15/24 05:30 IMPRESSION: Resolution of the bilateral pleural effusion as well as the related compression atelectasis. Resolution of the gall bladder mural edema. Resolution of the mild ascites. Stable rest of the study findings as detailed Reading Location: [place] [address] Chest X-Ray 10/15/24 05:32 IMPRESSION: Bilateral basal faint infiltrates.Minimal bilateral pleural effusion. Right 8th rib sclerotic lesion, Bones scan is advised. Reading Location: [place] [address] Abdomen Ultrasound 10/15/24 06:36 IMPRESSION: No definite acute abnormalities. Reading Location: [place] [address]
[2024-10-15] MEDS: 0.9% Normal Saline (1000mL) 1,000 ML 150 ML IV ×2 (10:57→17:34)
--- NOTE | 2024-10-15 11:09 | PCM.RX.CS ---
Consult Antibiotic Management Pharmacy has been consulted to manage selected antibiotic: Vancomycin Type of Intervention Type of Consult: New start Suspected Infection Suspected Infection: Sepsis Labs Labs: Sodium 137 mmol/L (133-145) 10/15/24 04:47 Potassium 4.0 mmol/L (3.3-5.1) 10/15/24 04:47 Chloride 101 mmol/L (98-108) 10/15/24 04:47 Carbon Dioxide 24.4 mmol/L (21.0-32.0) 10/15/24 04:47 Anion Gap 11 (5-15) 10/15/24 04:47 BUN 20 mg/dL (4-19) H 10/15/24 04:47 Creatinine 0.99 mg/dL (0.70-1.20) 10/15/24 04:47 Est GFR (MDRD) Non-Af 81 (>60) 10/15/24 04:47 BUN/Creatinine Ratio 20.6 RATIO (10-20) H 10/15/24 04:47 Glucose 103 mg/dL (70-99) H 10/15/24 04:47 Microbiology Microbiology: Microbiology 10/15/24 09:45 Urine Catheter - Catheter Legionella Antigen - Final 10/15/24 09:45 Urine Catheter - Catheter Streptococcus pneumoniae Antigen (M - Final Goal Trough Goal Trough: 15-20 mcg/mL Pharmacy Plan for Drug Dosing Pharmacy Plan for Drug Dosing: NEW START IV VANCOMYCIN Consulting Physician: Dr. Augustine Indication: Sepsis Goal Trough: 15-20 SrCr: 0.99 CrCl: 61.47 Comments: Received 1500mg x1 dose in ED @ 06:55 10/15/24 Vancomycin Dose: 750mg Q12H to start @ 19:00 10/15/24 Pending Level: 10/16/24 @ 18:30 Pharmacy Service will continue to monitor and adjust dosing as required. Follow-Up Labs Follow-Up Labs: Trough: Vancomycin (10/16/24 @ 18:30)
[2024-10-15 11:18] LABS: Magnesium 1.7 mg/dL (1.5-2.2)
[2024-10-15] MEDS: TITRATION PARAMETER CHANGE 1 EACH IV (11:57)
[2024-10-15] MEDS: Piperacil/Tazobactam 3.375 GM in 0.9% Normal Saline (50mL MB+) 50 ML IV ×2 (13:38→21:35)
[2024-10-15] MEDS: 0.9% Normal Saline (250mL Bag) 250 ML 15 ML IV (13:46)
[2024-10-15] MEDS: Ensure Plus High Protein 120 ML LIQUID PO ×2 (16:32→21:35)
[2024-10-15] MEDS: Vancomycin HCl 750 MG in 0.9% Normal Saline (250mL Bag) 250 ML 250 MG IV (18:46)
[2024-10-16] VITALS (46 sets, daily range): BP systolic 85–145; BP diastolic 48–91; PULSE 68–119; RESP 14–30; TEMP 36.6–36.8; O2SAT 96–100; BMI 24.5
[2024-10-16] MEDS: 0.9% Normal Saline (1000mL) 1,000 ML 150 ML IV ×4 (00:09→20:38)
[2024-10-16] MEDS: Piperacil/Tazobactam 3.375 GM in 0.9% Normal Saline (50mL MB+) 50 ML IV ×3 (05:14→21:12)
[2024-10-16] MEDS: Cosyntropin 0.25 MG in 0.9% Normal Saline (Pres. free 4 ML 150 MG IV (05:14)
[2024-10-16 05:33] LABS: Hematocrit 27.2 % (40-54); Hemoglobin 8.1 g/dL (13.0-16.5); Immature Granulocytes Count 0.040 X10^3/uL (0.0-0.0); Mean Corp Hgb Conc 29.8 g/dL (32-36); Mean Corpuscular Volume 83.4 fL (80-94); Mean Platelet Vol. 8.9 fl (6.2-12.0); NRBC Flagged by Analyzer 0 % (0-5); POSITIVE MORPHOLOGY YES; Platelet Count 116 K/mm3 (150-450); RBC Distribution Width CV 20.6 % (11.6-14.6); RBC Distribution Width SD 63.1 fl (35.1-43.9); Red Blood Count 3.26 M/mm3 (4.6-6.2); White Blood Count 7.8 K/mm3 (4.4-11.0)
[2024-10-16 06:05] LABS: Magnesium 1.8 mg/dL (1.5-2.2)
[2024-10-16 06:06] LABS: Differential Indicated SCAN CRITERIA MET
[2024-10-16] MEDS: 0.9% Saline Lock 10 ML Syringe IV ×4 (06:15→23:59)
[2024-10-16] MEDS: Vancomycin HCl 750 MG in 0.9% Normal Saline (250mL Bag) 250 ML 250 MG IV (06:16)
[2024-10-16 06:26] LABS: AST(SGOT) 20 U/L (<=37); Alanine Aminotransfer ALT/SGPT 16 U/L (<=46); Albumin, Serum 2.9 g/dL (3.4-4.8); Alkaline Phosphatase 107 U/L (40-129); Anion Gap 8 (5-15); BUN 17 mg/dL (4-19); BUN/Creat Ratio 20.6 RATIO (10-20); Bilirubin, Direct 0.34 mg/dL (0.00-0.30); Calcium,Total 7.2 mg/dL (7.6-11.0); Carbon Dioxide 18.3 mmol/L (21.0-32.0); Chloride 113 mmol/L (98-108); Estimated Creatinine Clearance 74.56 ml/min (50-250); Globulin 2.5 g/dL (2.2-4.2); Glucose 139 mg/dL (70-99); Potassium 3.4 mmol/L (3.3-5.1)
[2024-10-16 06:42] LABS: CORTISOL AM 25.70 ug/dL (6.02-18.40)
[2024-10-16 07:04] LABS: Anisocytosis 1+
--- NOTE | 2024-10-16 07:11 | PCM.PN.HOSP ---
Reason for Visit Reason for Visit: Diagnoses Sepsis, unspecified organism (10/15/24) Malignant neoplasm of prostate (10/15/24) Hypotension, unspecified (10/15/24) Severe sepsis with septic shock (10/15/24) Subjective Subjective Patient overnight with no acute events per nursing and self report. He notes feeling improved and more back to his previous normal baseline. He was afebrile overnight. Blood pressure is since improved and he is being weaned off early this a.m. from his norepinephrine. Discussed still awaiting cultures and unclear specific etiology for his hypotensive presentation. Patient denies fevers, chills, nausea, emesis, abdominal pain, chest pain or dyspnea. Objective Data Objective Data Vital Signs: Vital Signs Temp Pulse Resp BP Pulse Ox O2 Del Method 98.0 F 79 18 125/64 H 97 Room Air 10/16/24 00:00 10/16/24 06:00 10/16/24 06:00 10/16/24 06:45 10/16/24 06:00 10/16/24 06:00 Oxygen Delivery Method Room Air Weight: 153 lb 0.013 oz Body Mass Index (BMI) 24.5 Intake & Output: Intake and Output for Last 24 Hours 10/14/24 10/15/24 10/16/24 23:59 23:59 23:59 Intake Total 5612.80 / 5616.60 2071.01 / 2071.01 Output Total 1250 / 1250 500 / 500 Balance 4362.80 / 4366.60 1571.01 / 1571.01 Lab / Micro Data 10/16/24 05:09 10/16/24 05:09 Labs: Laboratory Results - last 24 hr 10/15/24 04:47: Phosphorus 2.4 L, Magnesium 1.7 10/16/24 05:09: WBC 7.8, RBC 3.26 L, Hgb 8.1 L, Hct 27.2 L, MCV 83.4, MCH 24.8 L, MCHC 29.8 L, RDW Std Deviation 63.1 H, RDW Coeff of Lydia 20.6 H, Plt Count 116 L, MPV 8.9, Immature Gran % (Auto) 0.500, Neut % (Auto) 86.2 H, Lymph % (Auto) 9.7 L, [place] % (Auto) 3.4, Eos % (Auto) 0.1, Baso % (Auto) 0.1, Absolute Neuts (auto) 6.8, Absolute Lymphs (auto) 0.76 L, Nucleated RBC % 0, Anisocytosis 1+, Sodium 139, Potassium 3.4, Chloride 113 H, Carbon Dioxide 18.3 L, Anion Gap 8, BUN 17, Creatinine 0.82, Estim Creat Clear Calc 74.56, Est GFR (MDRD) Non-Af 94, BUN/Creatinine Ratio 20.6 H, Glucose 139 H, Calcium 7.2 L, Phosphorus 2.7, Magnesium 1.8, Total Bilirubin 0.64, Direct Bilirubin 0.34 H, AST 20, ALT 16, Alkaline Phosphatase 107, Total Protein 5.4 L, Albumin 2.9 L, Globulin 2.5, Cortisol AM Sample 25.70 H Micro: Microbiology 10/15/24 04:47 Blood Culture (Wb) - Anticubital Left Bacteria Detection (PCR) - Preliminary Strep anginosus 10/15/24 05:10 Blood Culture (Wb) - Right Hand Blood Culture - Preliminary 10/15/24 09:45 Mucosa - Nose Respiratory Panel (PCR) - Final 10/15/24 11:10 Nasal Secretion MRSA (PCR) - Final 10/15/24 09:45 Urine Catheter - Catheter Legionella Antigen - Final 10/15/24 09:45 Urine Catheter - Catheter Streptococcus pneumoniae Antigen (M - Final Radiography Diagnostic Testing: Radiology Impression Abdomen Ultrasound 10/15/24 06:36 IMPRESSION: No definite acute abnormalities. Reading Location: [place] [address] Physical Exam Narrative Physical Examination: General: Awake, alert, oriented x 3 and cooperative, laying in the bed, improved appearance, no acute distress. Skin: Normal color, normal turgor, no icterus, no cyanosis except for occasional stage ecchymoses, abrasion as well as scalp wound which is chronic status post previous squamous cell carcinoma skin resection. HEENT: AT aside from see skin/NC, EOMI, PERRLA, MMM. Lungs: Mildly diminished, greater bases, appropriate effort, no rales, ronchi or wheezing. Heart: Regular rate and rhythm; no gallop, rub audible. Abdomen: Soft, NTTP, ND, mildly hyperactive BS. Extremities: No cyanosis, no clubbing, no distal edema noted. Neurological: Patient awake, alert, oriented as noted, cognitive function intact; pupils equally reactive to light and accommodation, cranial nerves grossly normal, moving all 4 extremities, no focal deficits, strength improved, mildly to moderately globally decreased Psychiatric: Affect appears rested, normal, no acute evidence of depressive or anxiety feelings. 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 with ongoing localized skin care, CKD stage II per GFR trending, Chronic anemia, BPH with obstructive pathology, Stage IV Prostate CA w/ metastatic disease to the bone on immunotherapy/hormonal therapy, recent discharge 09/22/2024 following admission and evaluation for acute acalculous cholecystitis with associated severe sepsis with acute kidney injury and bacteremia complicated by underlying stage IV prostate cancer with metastatic disease to the bone on immunotherapy and hormonal therapy with blood cultures noted to grow Streptococcus intermedius and methylol bacterium treated with IV Zosyn eventually transition to discharge to cefdinir 300 mg twice daily with stress dose steroids with planned follow-up at the [facility] with general surgery given [facility] surgery felt patient was too complicated with Case reviewed with his oncologist at discharge who now Aida presents to the [facility] ED on 10/15/24 with history of onset fatigue, malaise and fevers prompting ED return. #1. Shock, Undifferentiated, concern for potentially Septic but unclear source, recent presentation Acute acalculous cholecystitis but current presentation without abdominal pain/normal GB US: Admitted to the ICU, maintained on broad-spectrum antibiotic therapy with IV Zosyn and IV vancomycin, MRSA screen negative, upon admission started on stress dose steroids which are continued in addition to norepinephrine weaned off 10/17/2019 5 AM, PICC line placement to be requested given norepinephrine usage, 1 of 2 blood cultures with strep vaginosis detected as a preliminary, urine culture still pending, urine antigens negative, respiratory viral panel negative. As noted prior surgery reviewed ED initiated imaging including gallbladder ultrasound and felt this was not the source, continues to be no abdominal pain with palpation. Head Gre[employer] and infectious disease following. Cosyntropin testing ordered per team guide in case of adrenal insufficiency as etiology with initial testing 25.70 and repeat 75.40 however these were performed with stress dose steroids. 10/16/2024 remains off of norepinephrine through the day and is clinically stable may possibly de-escalate to PCU status. #2. Stage IV prostate cancer with metastatic disease to the bone: Following with oncology on immunotherapy/immunotherapy, temporally holding, magnesium and phosphorus levels requested, complicates presentation. #3. Chronic normocytic anemia: Admission hemoglobin 9.8, MCV 82.4, baseline hemoglobin primarily 8-9. 10/16/2024 hemoglobin 8.1, MCV 83.4. #4. Chronic Kidney Disease Stage II per GFR trending: Admission BUN/Cr 20/0.99, GFR 81, baseline renal function primarily 0.7-0.9 but has vacillated. 10/16/2024 BUN/creatinine 17/0.82, GFR 94. #5. BPH with obstructive pathology: Will continue patient on Flomax regimen, monitor for retention. #6. Hyperlipidemia: Given mild hyperbilirubinemia will temporarily hold statin therapy, resume once appropriate. #7. Hx Squamous cell carcinoma of the scalp in situ status post resection: Last dressing change 10/14/2024, noninfected appearing, will continue dressing changes per home regimen. #8. Former tobacco use: Encourage continued tobacco cessation. #9. DVT prophylaxis: Lovenox. #10. CODE status: Patient HCPOA is his and living will is currently in place. DNR-CCA, no intubation status. Charges/Coding Visit Charges [facility] E[facility]M: [facility]
[2024-10-16 07:25] LABS: CORTISOL AM 75.40 ug/dL (6.02-18.40)
[2024-10-16] MEDS: Ensure Plus High Protein 120 ML LIQUID PO ×3 (10:13→17:17)
--- NOTE | 2024-10-16 11:50 | CASEMGMT ---
ERIN DAS chart review: Patient was admitted 09/18-09/22/24 for severe sepsis and acute cholecystitis. See Assessment from 09/20/24. Patient was discharged to home with family support and follow-up plans in place. Patient returned to [facility] ED on 10/15/24 for weakness and fever. Patient was admitted for Septic Shock and required levo gtt for low BP. ERIN DAS in to discuss readmission and discharge planning. Patient states he was taking all his medications as prescribed. Patient did not follow up with his PCP but did follow up with Dr Al, surgeon last week. Patient denies needs at discharge. ERIN DAS educated patient on the importance of following up with PCP for preventative care, patient voiced understanding. Patient had no further questions or concerns. Patient to discharge home with family support. CM petrona continue to follow this patient and plan for a safe discharge.
[2024-10-16] MEDS: Vancomycin Trough/Random Due 1 LAB MC (17:17)
[2024-10-16 18:06] LABS: Vancomycin, Trough Level 10.3 ug/mL (5.0-15.0)
--- NOTE | 2024-10-16 18:38 | PCM.RX.CS ---
Consult Antibiotic Management Pharmacy has been consulted to manage selected antibiotic: Vancomycin Type of Intervention Type of Consult: Follow-up Suspected Infection Suspected Infection: Sepsis Labs Labs: Sodium 139 mmol/L (133-145) 10/16/24 05:09 Potassium 3.4 mmol/L (3.3-5.1) 10/16/24 05:09 Chloride 113 mmol/L (98-108) H 10/16/24 05:09 Carbon Dioxide 18.3 mmol/L (21.0-32.0) L 10/16/24 05:09 Anion Gap 8 (5-15) 10/16/24 05:09 BUN 17 mg/dL (4-19) 10/16/24 05:09 Creatinine 0.82 mg/dL (0.70-1.20) 10/16/24 05:09 Est GFR (MDRD) Non-Af 94 (>60) 10/16/24 05:09 BUN/Creatinine Ratio 20.6 RATIO (10-20) H 10/16/24 05:09 Glucose 139 mg/dL (70-99) H 10/16/24 05:09 Vancomycin Trough 10.3 ug/mL (5.0-15.0) 10/16/24 17:28 Microbiology Microbiology: Microbiology 10/15/24 04:47 Blood Culture (Wb) - Anticubital Left Bacteria Detection (PCR) - Preliminary Strep anginosus 10/15/24 05:10 Blood Culture (Wb) - Right Hand Blood Culture - Preliminary 10/15/24 09:45 Mucosa - Nose Respiratory Panel (PCR) - Final 10/15/24 11:10 Nasal Secretion MRSA (PCR) - Final 10/15/24 09:45 Urine Catheter - Catheter Legionella Antigen - Final 10/15/24 09:45 Urine Catheter - Catheter Streptococcus pneumoniae Antigen (M - Final Dosing Weight Weight used for dosin.4 kg Goal Trough Goal Trough: 15-20 mcg/mL Pharmacy Plan for Drug Dosing Pharmacy Plan for Drug Dosing: VANCOMYCIN LEVEL RECEIVED Current Vancomycin Dose: 750 MG Q12H Number of Doses Received: 1 LOADING AND THEN 2 MAINTEANCE Vancomycin Level: 10.3 Hours Since Last Dose: 11 Renal Function: 0.82 MG/DL / 74.56 ML/MIN Renal Function Trend: STABLE/IMPROVING Lab/Micro: Vancomycin Plan/Comments: Even though drawn earlier than anticipated, and with the improved rental function, Level at 10.3 which is subtherapeutic. Will increase dose to 1250mg q12h. Pharmacy Service will continue to monitor and adjust dosing as required. Pending Level: 10/18/2024 @0600 Follow-Up Labs Follow-Up Labs: Trough: Vancomycin Date/Time Labs Ordered Labs to be done on [date and time ordered]: 10/18/2024 0600
[2024-10-16] MEDS: Vancomycin HCl 1,250 MG in 0.9% Normal Saline (250mL Bag) 250 ML 167 MG IV (18:47)
--- NOTE | 2024-10-16 21:59 | PN.CC_ITS ---
Objective Data Objective Data Vital Signs: Vital Signs Last response 3 Temperature 36.6 C 10/16/24 15:00 Temperature Source Temporal 10/16/24 15:00 Pulse Rate 84 10/16/24 19:00 Respiratory Rate 30 H 10/16/24 19:00 Respiratory Effort Normal, Non-Labored 10/16/24 20:42 Respiratory Depth Normal 10/16/24 20:42 Respiratory Pattern Normal 10/16/24 20:42 Blood Pressure 129/65 H 10/16/24 19:00 Blood Pressure Mean 86 10/16/24 19:00 Blood Pressure Source Monitor 10/16/24 12:00 Blood Pressure Position Semi-Fowlers 10/16/24 12:00 Blood Pressure Location Left Forearm 10/16/24 12:00 Pulse Ox 100 10/16/24 19:00 Oxygen Delivery Method Room Air 10/16/24 20:42 Oxygen Flow Rate (L/min) 2 10/16/24 12:00 I&O: I&O Last 24 Hours 3 10/15/24 10/16/24 10/16/24 23:59 11:59 23:59 Intake Total 2044.30 / 5616.60 3506.26 / 6290.51 2784.25 / 6290.51 Output Total 900 / 1250 500 / 700 200 / 700 Balance 1144.30 / 4366.60 3006.26 / 5590.51 2584.25 / 5590.51 I&O: Total Stay 3 10/15/24 04:33 thru 10/16/24 20:38 Intake Total 07579.31 Output Total 1950 Balance 9953.31 Current Meds Ordered / Administered: Current meds ordered / Administered 3 Generic Name Dose Route Start Last Admin Trade Name Freq PRN Reason Stop Dose Admin Acetaminophen 650 mg 10/15/24 10:23 Acetaminophen 325 Mg Tablet PO Q4H PRN PRN Fever, pain 1-10/10 Acetaminophen 650 mg 10/15/24 10:23 Acetaminophen 650 Mg Suppository RC Q4H PRN PRN Fever, pain 1-10 Al Hydroxide/Mg Hydroxide 30 ml 10/15/24 10:23 Mag Hydrox/Al Hydrox/Simeth 30 Ml Udc PO Q6H PRN PRN Gastric Burning Albuterol Sulfate 2.5 mg 10/15/24 10:23 Albuterol 2.5 Mg/3 Ml Vial.Neb. INHALATION Q2H PRN PRN Dyspnea, wheezing Calamine/Phenol 1 applic 10/15/24 11:00 10/16/24 20:53 Menthol/Lanolin/Calamine/Znox 113 Gm Tube TOPICAL Not Given 4X/DAY KATI Protocol Enoxaparin Sodium 40 mg 10/15/24 11:00 10/16/24 10:13 Enoxaparin 40 Mg/0.4 Ml Syringe SC 40 mg DAILY KATI Administration Famotidine 20 mg 10/15/24 11:00 10/16/24 20:58 Famotidine 20 Mg Tablet PO 20 mg BID KATI Administration Guaifenesin 10 ml 10/15/24 10:23 Guaifenesin 10 Ml Udc (200mg/10ml) PO Q4H PRN PRN COUGH Hydrocortisone Sodium Succinate 50 mg 10/15/24 11:00 10/16/24 17:17 Hydrocortisone Sod Succinate 100 Mg/2 Ml Vial IV 50 mg Q6 KATI Administration Norepinephrine Bitartrate 8 mg 250 mls @ 9.375 mls/hr 10/15/24 08:10 10/16/24 19:00 / Sodium Chloride CONT INF 1 mcg/min .[id number] KATI 1.9 mls/hr Titration Protocol 5 MCG/MIN Piperacillin Sod/Tazobactam 50 mls @ 12.5 mls/hr 10/15/24 14:00 10/16/24 21:12 Sod 3.375 gm/ Sodium Chloride IV 12.5 mls/hr Q8 KATI Administration Vancomycin IV-PHARMACY TO DOSE 500 mls @ 250 mls/hr 10/15/24 10:23 1 each/ Sodium Chloride IV PRN PRN Rx to Dose Protocol Sodium Chloride 1,000 mls @ 150 mls/hr 10/15/24 10:23 10/16/24 20:38 IV 150 mls/hr .[id number] KATI Administration Sodium Chloride 250 mls @ 15 mls/hr 10/15/24 10:30 10/15/24 22:10 IV 0 mls/hr .[id number] PRN Infusion Saline Flush Sodium Chloride 250 mls @ 15 mls/hr 10/15/24 10:30 IV .[id number] PRN Additional IVPB Infusion Vancomycin HCl 1,250 mg/ 275 mls @ 167 mls/hr 10/16/24 18:30 10/16/24 20:38 Sodium Chloride IV Infused Q12H [facility] Infusion Melatonin 3 mg 10/15/24 22:00 Melatonin 3 Mg Tablet PO QHS PRN PRN INSOMNIA Midodrine 10 mg 10/15/24 10:10 10/16/24 17:16 Midodrine Hcl 5 Mg Tablet PO 10 mg TIDCM KATI Administration Nutritional Formula (Lactose Free) 120 ml 10/15/24 18:00 10/16/24 20:52 Ensure Plus High Protein 120 Ml Liquid PO Not Given 4X/DAY [facility] Ondansetron HCl 4 mg 10/15/24 10:23 Ondansetron 4 Mg/2 Ml Vial IV Q8H PRN PRN NAUSEA/VOMITING Prochlorperazine Edisylate 5 mg 10/15/24 10:23 Prochlorperazine 10 Mg/2 Ml Vial IV Q4H PRN PRN Breakthrough Nausea/Vomiting Senna/Docusate Sodium 2 tablet 10/15/24 11:00 Senna/Docusate Sodium 1 Tablet PO BID PRN PRN Constipation Sodium Chloride 10 - 40 ml 10/15/24 10:30 10/16/24 20:58 0.9% Saline Lock 10 Ml Syringe IV 10 ml UD PRN Administration SALINE FLUSH Tamsulosin HCl 0.4 mg 10/15/24 11:00 10/16/24 10:13 Tamsulosin Hcl 0.4 Mg Capsule PO 0.4 mg DAILY KATI Administration Vancomycin Protocol 1 lab 10/18/24 05:00 Vancomycin Trough/Random Due [facility] 10/18/24 07:00 DAILY [facility] Medical Records Data Medical Nutrition Assessment Dietitian: Malnutrition Criteria Met Start: 10/16/24 14:00 Freq: Status: Active Protocol: Document 10/16/24 14:00 SB (Rec: 10/16/24 14:00 [id number]) Nutrition Malnutrition Evidence of Yes Malnutrition Exists Malnutrition (severe Chronic ): Evidenced By Suboptimal Energy Intake (Severe),Weight Loss (Severe) Clinical Problem Chronic Disease or Condition Related Malnutrition Etiology 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 Status Active Problem Recommendation Dietitian Adjust to liberal regular diet. Recommendations/ Will order 120ml chocolate EPHP 4x daily with medpass. Changes Will monitor weight trends. Lab / Micro Data 10/16/24 05:09 10/16/24 05:09 Labs: Laboratory Results - last 24 hr 10/16/24 05:09: WBC 7.8, RBC 3.26 L, Hgb 8.1 L, Hct 27.2 L, MCV 83.4, MCH 24.8 L , MCHC 29.8 L, RDW Std Deviation 63.1 H, RDW Coeff of Lydia 20.6 H, Plt Count 116 L, MPV 8.9, Immature Gran % (Auto) 0.500, Neut % (Auto) 86.2 H, Lymph % (Auto) 9.7 L, [place] % (Auto) 3.4, Eos % (Auto) 0.1, Baso % (Auto) 0.1, Absolute Neuts (auto) 6.8, Absolute Lymphs (auto) 0.76 L, Nucleated RBC % 0, Anisocytosis 1+, Sodium 139, Potassium 3.4, Chloride 113 H, Carbon Dioxide 18.3 L, Anion Gap 8, BUN 17, Creatinine 0.82, Estim Creat Clear Calc 74.56, Est GFR (MDRD) Non-Af 94, BUN/Creatinine Ratio 20.6 H, Glucose 139 H, Calcium 7.2 L, Phosphorus 2.7, Magnesium 1.8, Total Bilirubin 0.64, Direct Bilirubin 0.34 H, AST 20, ALT 16, Alkaline Phosphatase 107, Total Protein 5.4 L, Albumin 2.9 L, Globulin 2.5, C ortisol AM Sample 25.70 H 10/16/24 06:08: Cortisol AM Sample 75.40 H 10/16/24 17:28: Vancomycin Trough 10.3 Micro: Microbiology 10/15/24 04:47 Blood Culture (Wb) - Anticubital Left Bacteria Detection (PCR) - Preliminary Strep anginosus 10/15/24 05:10 Blood Culture (Wb) - Right Hand Blood Culture - Preliminary Assessment and Plan . Assessment and plan: HPI Patient seen and examined Chart and data reviewed He feels well On and off low doses NE for BP BCX - (?) Strep Lab noted EXAM GEN NAD VS as above HEENT O2 N/C NECK obese COR RRR CHEST CTA ABD soft EXT minimal edema SKIN w/d JAMES NF ASSESSMENT 1. Presumed sepsis syndrome 2. (?) recurrent bacteremia 3. Advanced prostate CA - immunosuppressed -NE as needed -ABX -f/u CX -ID opinion noted -VTE ppx -IV hydrocortisone Critical Care Time: 50 minutes The entirety of this encounter was done via Telemedicine
[2024-10-17] VITALS (14 sets, daily range): BP systolic 113–152; BP diastolic 65–102; PULSE 50–121; RESP 14–27; TEMP 36.2–36.8; O2SAT 95–100; BMI 25.9
[2024-10-17] MEDS: 0.9% Normal Saline (1000mL) 1,000 ML 150 ML IV ×4 (02:40→22:58)
[2024-10-17] MEDS: 0.9% Saline Lock 10 ML Syringe IV ×3 (04:36→21:47)
[2024-10-17 04:50] LABS: Hematocrit 24.3 % (40-54); Hemoglobin 7.4 g/dL (13.0-16.5); Immature Granulocytes Count 0.030 X10^3/uL (0.0-0.0); Mean Corp Hgb Conc 30.5 g/dL (32-36); Mean Corpuscular Volume 83.2 fL (80-94); Mean Platelet Vol. 9.0 fl (6.2-12.0); NRBC Flagged by Analyzer 0 % (0-5); POSITIVE MORPHOLOGY YES; Platelet Count 103 K/mm3 (150-450); RBC Distribution Width CV 20.5 % (11.6-14.6); RBC Distribution Width SD 62.7 fl (35.1-43.9); Red Blood Count 2.92 M/mm3 (4.6-6.2); White Blood Count 4.9 K/mm3 (4.4-11.0)
[2024-10-17 05:22] LABS: Differential Indicated SCAN CRITERIA MET
[2024-10-17 05:30] LABS: AST(SGOT) 19 U/L (<=37); Alanine Aminotransfer ALT/SGPT 15 U/L (<=46); Albumin, Serum 2.9 g/dL (3.4-4.8); Alkaline Phosphatase 106 U/L (40-129); Anion Gap 8 (5-15); BUN 16 mg/dL (4-19); BUN/Creat Ratio 24.5 RATIO (10-20); Bilirubin, Direct 0.18 mg/dL (0.00-0.30); Calcium,Total 7.0 mg/dL (7.6-11.0); Carbon Dioxide 18.4 mmol/L (21.0-32.0); Chloride 115 mmol/L (98-108); Estimated Creatinine Clearance 76.43 ml/min (50-250); Globulin 2.4 g/dL (2.2-4.2); Glucose 155 mg/dL (70-99); Magnesium 1.8 mg/dL (1.5-2.2); Potassium 3.2 mmol/L (3.3-5.1)
[2024-10-17] MEDS: Vancomycin HCl 1,250 MG in 0.9% Normal Saline (250mL Bag) 250 ML 167 MG IV (05:33)
[2024-10-17 05:39] LABS: Anisocytosis 3+; Burr Cells 1+; Differential Comment SCANNED; Microcytosis 1+
[2024-10-17] MEDS: Potassium Chloride Oral Tablet 20 MEQ 40 MEQ PO (06:30)
[2024-10-17] MEDS: Piperacil/Tazobactam 3.375 GM in 0.9% Normal Saline (50mL MB+) 50 ML IV ×3 (06:35→21:54)
--- NOTE | 2024-10-17 06:53 | PN.HOSP_ITS ---
Reason for Visit Reason for Visit: Diagnoses Sepsis, unspecified organism (10/15/24) Malignant neoplasm of prostate (10/15/24) Hypotension, unspecified (10/15/24) Severe sepsis with septic shock (10/15/24) Subjective Subjective Patient with no acute events overnight per self and per nursing report. Discussed that only 1 of 2 cultures was atypical as far as blood cultures are concerned but urine culture was still no growth and no obvious source. Discussed plan of care which included de-escalation off of stress dose steroids and transition back to oral home steroids to which she is amenable. Discussed also MRSA screen negative with plan to de-escalate off of vancomycin and continue only on IV Zosyn pending infectious disease reevaluation 10/18/2024. Patient denies fevers, chills, nausea, emesis, abdominal pain, chest pain or dyspnea. Objective Data Objective Data Vital Signs: Vital Signs Temp Pulse Resp BP Pulse Ox O2 Del Method O2 Flow Rate 97.7 F L 56 L 16 139/81 H 95 Room Air 2 10/17/24 04:00 10/17/24 06:00 10/17/24 06:00 10/17/24 06:00 10/17/24 06:00 10/17/24 06:00 10/16/24 12:00 Oxygen Flow Rate (L/min) 2 Oxygen Delivery Method Room Air Weight: 161 lb 13.109 oz Body Mass Index (BMI) 25.9 Intake & Output: Intake and Output for Last 24 Hours 10/15/24 10/16/24 10/17/24 23:59 23:59 23:59 Intake Total 5612.80 / 5616.60 6297.48 / 6297.48 955 / 955 Output Total 1250 / 1250 700 / 900 850 / 850 Balance 4362.80 / 4366.60 5597.48 / 5397.48 105 / 105 Medical Nutrition Assessment Dietitian: Malnutrition Criteria Met Start: 10/16/24 14:00 Freq: Status: Active Protocol: Document 10/16/24 14:00 SB (Rec: 10/16/24 14:00 SB [id number]) Nutrition Malnutrition Evidence of Yes Malnutrition Exists Malnutrition (severe Chronic ): Evidenced By Suboptimal Energy Intake (Severe),Weight Loss (Severe) Clinical Problem Chronic Disease or Condition Related Malnutrition Etiology 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 Status Active Problem Recommendation Dietitian Adjust to liberal regular diet. Recommendations/ Will order 120ml chocolate EPHP 4x daily with medpass. Changes Will monitor weight trends. Lab / Micro Data 10/17/24 04:35 10/17/24 04:35 Labs: Laboratory Results - last 24 hr 10/16/24 05:09: Anisocytosis 1+ 10/16/24 06:08: Cortisol AM Sample 75.40 H 10/16/24 17:28: Vancomycin Trough 10.3 10/17/24 04:35: WBC 4.9, RBC 2.92 L, Hgb 7.4 L, Hct 24.3 L, MCV 83.2, MCH 25.3 L , MCHC 30.5 L, RDW Std Deviation 62.7 H, RDW Coeff of Lydia 20.5 H, Plt Count 103 L, MPV 9.0, Immature Gran % (Auto) 0.600, Neut % (Auto) 78.0 H, Lymph % (Auto) 17.7 L, [place] % (Auto) 3.5, Eos % (Auto) 0.2, Baso % (Auto) 0.0, Absolute Neuts (auto) 3.8, Absolute Lymphs (auto) 0.86, Nucleated RBC % 0, Differential Comment SCANNED, Anisocytosis 3+, Microcytosis 1+, Ovalocytes 2+, Alexx Cells 1+, Sodium 141, Potassium 3.2 L, Chloride 115 H, Carbon Dioxide 18.4 L, Anion Gap 8, BUN 16, Creatinine 0.63 L, Estim Creat Clear Calc 76.43, Est GFR (MDRD) Non-Af 102, BUN/Creatinine Ratio 24.5 H, Glucose 155 H, Calcium 7.0 L, Phosphorus 1.9 L, Magnesium 1.8, Total Bilirubin 0.37, Direct Bilirubin 0.18, AST 19, ALT 15, Alkaline Phosphatase 106, Total Protein 5.3 L, Albumin 2.9 L, Globulin 2.4 Micro: Microbiology 10/15/24 04:47 Blood Culture (Wb) - Anticubital Left Bacteria Detection (PCR) - Preliminary Strep anginosus 10/15/24 05:10 Blood Culture (Wb) - Right Hand Blood Culture - Preliminary 10/15/24 09:45 Mucosa - Nose Respiratory Panel (PCR) - Final 10/15/24 11:10 Nasal Secretion MRSA (PCR) - Final 10/15/24 09:45 Urine Catheter - Catheter Legionella Antigen - Final 10/15/24 09:45 Urine Catheter - Catheter Streptococcus pneumoniae Antigen (M - Final Physical Exam Narrative Physical Examination: General: Awake, alert, oriented x 3 and cooperative, seated upright in the bedside chair, just finished breakfast, no acute complaints at this time. Skin: Normal color, normal turgor, no icterus, no cyanosis except for occasional stage ecchymoses, abrasion as well as scalp wound which is chronic status post previous squamous cell carcinoma skin resection with dressing changed day prior. HEENT: AT aside from see skin/NC, EOMI, PERRLA, MMM. Lungs: Mildly diminished, greater bases, appropriate effort, no rales, ronchi or wheezing. Heart: Regular rate and rhythm; no gallop, rub audible. Abdomen: Soft, NTTP, ND, mildly hyperactive BS. Extremities: No cyanosis, no clubbing, no distal edema noted. Neurological: Patient awake, alert, oriented as noted, cognitive function intact; pupils equally reactive to light and accommodation, cranial nerves grossly normal, moving all 4 extremities, no focal deficits, strength improving, mildly to moderately global decreased Psychiatric: Affect appears normal, no acute evidence of depressive or anxiety feelings. 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 with ongoing localized skin care, CKD stage II per GFR trending, Chronic anemia, BPH with obstructive pathology, Stage IV Prostate CA w/ metastatic disease to the bone on immunotherapy/hormonal therapy, recent discharge 09/22/2024 following admission and evaluation for acute acalculous cholecystitis with associated severe sepsis with acute kidney injury and bacteremia complicated by underlying stage IV prostate cancer with metastatic disease to the bone on immunotherapy and hormonal therapy with blood cultures noted to grow Streptococcus intermedius and methylol bacterium treated with IV Zosyn eventually transition to discharge to cefdinir 300 mg twice daily with stress dose steroids with planned follow-up at the [facility] with general surgery given [facility] surgery felt patient was too complicated with Case reviewed with his oncologist at discharge who now Aida presents to the [facility] ED on 10/15/24 with history of onset fatigue, malaise and fevers prompting ED return. #1. Shock, Undifferentiated, concern for potentially Septic but unclear source, recent presentation Acute acalculous cholecystitis but current presentation without abdominal pain/normal GB US: Admitted to the ICU, maintained on broad- spectrum antibiotic therapy with IV Zosyn and IV vancomycin, MRSA screen negative, upon admission started on stress dose steroids which are continued in addition to norepinephrine weaned off 10/17/2019 5 AM, PICC line placement to be requested given norepinephrine usage, 1 of 2 blood cultures with strep vaginosis detected as a preliminary, urine culture still pending, urine antigens negative, respiratory viral panel negative. As noted prior surgery reviewed ED initiated imaging including gallbladder ultrasound and felt this was not the source, continues to be no abdominal pain with palpation. Portable Machine Cutter and infectious disease following. Cosyntropin testing ordered per facilities maintenance worker in case of adrenal insufficiency as etiology with initial testing 25.70 and repeat 75.40 however these were performed with stress dose steroids and transition back to low-dose twice daily prednisone therapy. 10/16/2024 remains off of norepinephrine. 10/17/24 will d/c stress dose steroids. 10/17/24 will d/c vancomycin. Maintained on midodrine. Clinically improved, 10/17/24 transition to PCU status. #2. Hypokalemia, hypophosphatemia: 10/17/2024 potassium 3.2, phosphorus 1.9, administered oral potassium 40 mill equivalent x 1 and placed on Neutra-Phos packets, will repeat level in AM. #3. Stage IV prostate cancer with metastatic disease to the bone: Following with oncology on immunotherapy/immunotherapy, temporally holding, encourage follow-up outpatient as previously arranged upon discharge. As noted 10/17/2024 will de-escalate off stress dose steroids and resume low-dose twice daily steroids. #4. Chronic normocytic anemia: Admission hemoglobin 9.8, MCV 82.4, baseline hemoglobin primarily 8-9. 7 hgb 8.1, MCV 83.4->10/17/24 Hgb 7.4, MCV 83.2. If symptomatic or hemoglobin repeat less than 7 will initiate PRBC administration. #5. Chronic Kidney Disease Stage II per GFR trending: Admission BUN/Cr 20/0.99, GFR 81, baseline renal function primarily 0.7-0.9 but has vacillated. 10/17/24 BUN/Cr 16/0.63, GFR 102. #6. BPH with obstructive pathology: Will continue patient on Flomax regimen, monitor for retention. #7. Hyperlipidemia: Upon presentation initially given mild hyperbilirubinemia held statin therapy, 10/17/2024 T. bili, T. bili, LFTs normalized, will resume. #8. Hx Squamous cell carcinoma of the scalp in situ status post resection: Last dressing change 10/14/2024, noninfected appearing, will continue dressing changes per home regimen. #9. Former tobacco use: Encourage continued tobacco cessation. #10. DVT prophylaxis: Lovenox. #11. CODE status: Patient PARVEZ is his and living will is currently in place. DNR-CCA, no intubation status. Charges/Coding Visit Charges Inpatient E&M: 36123 Subs Hosp L3
[2024-10-17] MEDS: Na Biphos/Potassium Phosphate PACKET 1 PACKET PO ×3 (08:13→17:57)
[2024-10-17] MEDS: Ensure Plus High Protein 120 ML LIQUID PO ×3 (09:26→21:47)
--- NOTE | 2024-10-17 13:28 | PN.CC_ITS ---
Objective Data Objective Data Vital Signs: Vital Signs Last response 3 Temperature 36.8 C 10/17/24 10:00 Temperature Source Temporal 10/17/24 10:00 Pulse Rate 78 10/17/24 10:00 Respiratory Rate 21 H 10/17/24 10:00 Respiratory Effort Normal, Non-Labored 10/17/24 09:28 Respiratory Depth Normal 10/17/24 09:28 Respiratory Pattern Normal 10/17/24 09:28 Blood Pressure 113/68 10/17/24 10:00 Blood Pressure Mean 83 10/17/24 10:00 Blood Pressure Source Monitor 10/17/24 08:00 Blood Pressure Position Sitting 10/17/24 08:00 Blood Pressure Location Right Arm 10/17/24 08:00 Pulse Ox 98 10/17/24 10:00 Oxygen Delivery Method Room Air 10/17/24 10:00 Oxygen Flow Rate (L/min) 2 10/16/24 12:00 I&O: I&O Last 24 Hours 3 10/16/24 10/17/24 10/17/24 23:59 11:59 23:59 Intake Total 2791.22 / 6297.48 2387.75 / 2747.75 360 / 2747.75 Output Total 200 / 900 850 / 850 Balance 2591.22 / 5397.48 1537.75 / 1897.75 360 / 1897.75 I&O: Total Stay 3 10/15/24 04:33 thru 10/17/24 12:00 Intake Total 72584.03 Output Total 2800 Balance 99768.03 Current Meds Ordered / Administered: Current meds ordered / Administered 3 Generic Name Dose Route Start Last Admin Trade Name Freq PRN Reason Stop Dose Admin Acetaminophen 650 mg 10/15/24 10:23 Acetaminophen 325 Mg Tablet PO Q4H PRN PRN Fever, pain 1-10/10 Acetaminophen 650 mg 10/15/24 10:23 Acetaminophen 650 Mg Suppository RC Q4H PRN PRN Fever, pain 1-10 Al Hydroxide/Mg Hydroxide 30 ml 10/15/24 10:23 Mag Hydrox/Al Hydrox/Simeth 30 Ml Udc PO Q6H PRN PRN Gastric Burning Albuterol Sulfate 2.5 mg 10/15/24 10:23 Albuterol 2.5 Mg/3 Ml Vial.Neb. INHALATION Q2H PRN PRN Dyspnea, wheezing Atorvastatin Calcium 20 mg 10/17/24 22:00 Atorvastatin Calcium 20 Mg Tablet PO QHS KATI Calamine/Phenol 1 applic 10/15/24 11:00 10/17/24 08:13 Menthol/Lanolin/Calamine/Znox 113 Gm Tube TOPICAL Not Given 4X/DAY [facility] Protocol Enoxaparin Sodium 40 mg 10/15/24 11:00 10/17/24 09:15 Enoxaparin 40 Mg/0.4 Ml Syringe SC 40 mg DAILY KATI Administration Famotidine 20 mg 10/15/24 11:00 10/17/24 08:14 Famotidine 20 Mg Tablet PO 20 mg BID KATI Administration Guaifenesin 10 ml 10/15/24 10:23 Guaifenesin 10 Ml Udc (200mg/10ml) PO Q4H PRN PRN COUGH Piperacillin Sod/Tazobactam 50 mls @ 12.5 mls/hr 10/15/24 14:00 10/17/24 10:35 Sod 3.375 gm/ Sodium Chloride IV Infused Q8 KATI Infusion Sodium Chloride 1,000 mls @ 150 mls/hr 10/15/24 10:23 10/17/24 09:22 IV 150 mls/hr .Q6H40M KATI Administration Sodium Chloride 250 mls @ 15 mls/hr 10/15/24 10:30 10/17/24 09:33 IV 0 mls/hr .[id number] PRN Infusion Saline Flush Sodium Chloride 250 mls @ 15 mls/hr 10/15/24 10:30 IV .[id number] PRN Additional IVPB Infusion Melatonin 3 mg 10/15/24 22:00 Melatonin 3 Mg Tablet PO QHS PRN PRN INSOMNIA Midodrine 10 mg 10/15/24 10:10 10/17/24 11:56 Midodrine Hcl 5 Mg Tablet PO 10 mg TIDCM KATI Administration Nutritional Formula (Lactose Free) 120 ml 10/15/24 18:00 10/17/24 09:26 Ensure Plus High Protein 120 Ml Liquid PO 120 ml 4X/DAY KATI Administration Ondansetron HCl 4 mg 10/15/24 10:23 Ondansetron 4 Mg/2 Ml Vial IV Q8H PRN PRN NAUSEA/VOMITING Potassium Phos/Sodium Phos 1 packet 10/17/24 08:00 10/17/24 11:56 Na Biphos/Potassium Phosphate Packet PO 10/17/24 17:01 1 packet TIDCM KATI Administration Prednisone 10 mg 10/17/24 10:00 10/17/24 09:15 Prednisone 10 Mg Tablet PO 10 mg BID KATI Administration Prochlorperazine Edisylate 5 mg 10/15/24 10:23 Prochlorperazine 10 Mg/2 Ml Vial IV Q4H PRN PRN Breakthrough Nausea/Vomiting Senna/Docusate Sodium 2 tablet 10/15/24 11:00 Senna/Docusate Sodium 1 Tablet PO BID PRN PRN Constipation Sodium Chloride 10 - 40 ml 10/15/24 10:30 10/17/24 05:34 0.9% Saline Lock 10 Ml Syringe IV 10 ml UD PRN Administration SALINE FLUSH Tamsulosin HCl 0.4 mg 10/15/24 11:00 10/17/24 08:14 Tamsulosin Hcl 0.4 Mg Capsule PO 0.4 mg DAILY KATI Administration Medical Records Data Medical Nutrition Assessment Dietitian: Malnutrition Criteria Met Start: 10/16/24 14:00 Freq: Status: Active Protocol: Document 10/16/24 14:00 SB (Rec: 10/16/24 14:00 SB [id number]) Nutrition Malnutrition Evidence of Yes Malnutrition Exists Malnutrition (severe Chronic ): Evidenced By Suboptimal Energy Intake (Severe),Weight Loss (Severe) Clinical Problem Chronic Disease or Condition Related Malnutrition Etiology 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 Status Active Problem Recommendation Dietitian Adjust to liberal regular diet. Recommendations/ Will order 120ml chocolate EPHP 4x daily with medpass. Changes Will monitor weight trends. Lab / Micro Data 10/17/24 04:35 10/17/24 04:35 Labs: Laboratory Results - last 24 hr 10/16/24 17:28: Vancomycin Trough 10.3 10/17/24 04:35: WBC 4.9, RBC 2.92 L, Hgb 7.4 L, Hct 24.3 L, MCV 83.2, MCH 25.3 L , MCHC 30.5 L, RDW Std Deviation 62.7 H, RDW Coeff of Lydia 20.5 H, Plt Count 103 L, MPV 9.0, Immature Gran % (Auto) 0.600, Neut % (Auto) 78.0 H, Lymph % (Auto) 17.7 L, [place] % (Auto) 3.5, Eos % (Auto) 0.2, Baso % (Auto) 0.0, Absolute Neuts (auto) 3.8, Absolute Lymphs (auto) 0.86, Nucleated RBC % 0, Differential Comment SCANNED, Anisocytosis 3+, Microcytosis 1+, Ovalocytes 2+, Alexx Cells 1+, Sodium 141, Potassium 3.2 L, Chloride 115 H, Carbon Dioxide 18.4 L, Anion Gap 8, BUN 16, Creatinine 0.63 L, Estim Creat Clear Calc 76.43, Est GFR (MDRD) Non-Af 102, BUN/Creatinine Ratio 24.5 H, Glucose 155 H, Calcium 7.0 L, Phosphorus 1.9 L, Magnesium 1.8, Total Bilirubin 0.37, Direct Bilirubin 0.18, AST 19, ALT 15, Alkaline Phosphatase 106, Total Protein 5.3 L, Albumin 2.9 L, Globulin 2.4 Micro: Microbiology 10/15/24 05:10 Urine, Clean Catch Urine Culture - Final Culture exhibits no growth. 10/15/24 04:47 Blood Culture (Wb) - Anticubital Left Bacteria Detection (PCR) - Preliminary Strep anginosus 10/15/24 04:47 Blood Culture (Wb) - Anticubital Left Blood Culture - Preliminary Assessment and Plan . Assessment and plan: HPI Patient seen and examined Chart and data reviewed He feels well NE is off BCX - (?) Strep Defer ABX to ID team EXAM GEN NAD VS as above HEENT O2 N/C NECK obese COR RRR CHEST CTA ABD soft EXT minimal edema SKIN w/d JAMES NF ASSESSMENT 1. Presumed sepsis syndrome 2. (?) recurrent bacteremia 3. Advanced prostate CA - immunosuppressed -ABX -f/u CX -ID opinion noted -VTE ppx -IV hydrocortisone - changed to prednisone Critical Care Time: 50 minutes The entirety of this encounter was done via Telemedicine
--- NOTE | 2024-10-17 14:57 | NURSING ---
Report called to ERIN Garcia. Pt to transfer to PCU room 125
[2024-10-18 03:31] VITALS: BP 131/82; PULSE 70; RESP 16; TEMP 37; O2SAT 98
[2024-10-18] MEDS: 0.9% Normal Saline (250mL Bag) 250 ML 15 ML IV (03:34)
[2024-10-18] MEDS: Piperacil/Tazobactam 3.375 GM in 0.9% Normal Saline (50mL MB+) 50 ML IV (04:55)
[2024-10-18 05:11] VITALS: BMI 27.3
[2024-10-18] MEDS: 0.9% Normal Saline (1000mL) 1,000 ML 150 ML IV (05:40)
[2024-10-18 06:12] LABS: AST(SGOT) 24 U/L (<=37); Alanine Aminotransfer ALT/SGPT 24 U/L (<=46); Albumin, Serum 2.9 g/dL (3.4-4.8); Alkaline Phosphatase 120 U/L (40-129); Anion Gap 10 (5-15); BUN 14 mg/dL (4-19); BUN/Creat Ratio 20.1 RATIO (10-20); Bilirubin, Direct 0.16 mg/dL (0.00-0.30); Calcium,Total 6.9 mg/dL (7.6-11.0); Carbon Dioxide 18.3 mmol/L (21.0-32.0); Chloride 116 mmol/L (98-108); Estimated Creatinine Clearance 82.75 ml/min (50-250); Globulin 2.4 g/dL (2.2-4.2); Glucose 135 mg/dL (70-99); Potassium 3.6 mmol/L (3.3-5.1)
[2024-10-18 08:01] LABS: Hematocrit 25.2 % (40-54); Hemoglobin 7.7 g/dL (13.0-16.5); Red Blood Count 3.03 M/mm3 (4.6-6.2); White Blood Count 5.0 K/mm3 (4.4-11.0)
[2024-10-18 08:02] LABS: Immature Granulocytes Count 0.050 X10^3/uL (0.0-0.0); Mean Corp Hgb Conc 30.6 g/dL (32-36); Mean Corpuscular Volume 83.2 fL (80-94); Mean Platelet Vol. 9.2 fl (6.2-12.0); Platelet Count 130 K/mm3 (150-450); RBC Distribution Width CV 20.7 % (11.6-14.6); RBC Distribution Width SD 63.2 fl (35.1-43.9)
[2024-10-18 08:45] VITALS: BP 151/79; PULSE 78; RESP 16; TEMP 36.7; O2SAT 100
[2024-10-18 08:57] LABS: Differential Indicated SCAN CRITERIA MET
[2024-10-18 08:59] LABS: Anisocytosis 1+
--- NOTE | 2024-10-18 10:39 | PN.HOSP_ITS ---
Reason for Visit Chief Complaint: Fever, chills, fatigue, malaise. Subjective Subjective Patient is a 69-year-old gentleman with recent admission for acute cholecystitis with strep and haemophilus bacteremia who presented to the emergency department with progressive generalized weakness as well as fever. Patient was found to be hypotensive admitted to the intensive care unit for further management Objective Data Objective Data Vital Signs: Vital Signs Temp Pulse Resp BP Pulse Ox O2 Del Method O2 Flow Rate 98.1 F 78 16 151/79 H 100 Room Air 2 10/18/24 08:45 10/18/24 08:45 10/18/24 08:45 10/18/24 08:45 10/18/24 08:45 10/18/24 08:45 10/16/24 12:00 Oxygen Flow Rate (L/min) 2 Oxygen Delivery Method Room Air Weight: 77 kg Body Mass Index (BMI) 27.3 Intake & Output: Intake and Output for Last 24 Hours 10/16/24 10/17/24 10/18/24 23:59 23:59 23:59 Intake Total 6297.48 / 6297.48 5292.75 / 5772.75 1820 / 1820 Output Total 700 / 900 850 / 1450 1250 / 1250 Balance 5597.48 / 5397.48 4442.75 / 4322.75 570 / 570 Medical Nutrition Assessment Dietitian: Malnutrition Criteria Met Start: 10/16/24 14:00 Freq: Status: Active Protocol: Document 10/16/24 14:00 SB (Rec: 10/16/24 14:00 SB [id number]) Nutrition Malnutrition Evidence of Yes Malnutrition Exists Malnutrition (severe Chronic ): Evidenced By Suboptimal Energy Intake (Severe),Weight Loss (Severe) Clinical Problem Chronic Disease or Condition Related Malnutrition Etiology 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 Status Active Problem Recommendation Dietitian Adjust to liberal regular diet. Recommendations/ Will order 120ml chocolate EPHP 4x daily with medpass. Changes Will monitor weight trends. Lab / Micro Data 10/18/24 05:20 10/18/24 05:20 Labs: Laboratory Results - last 24 hr 10/18/24 05:20: WBC 5.0, RBC 3.03 L, Hgb 7.7 L, Hct 25.2 L, MCV 83.2, MCH 25.4 L , MCHC 30.6 L, RDW Std Deviation 63.2 H, RDW Coeff of Lydia 20.7 H, Plt Count 130 L, MPV 9.2, Immature Gran % (Auto) 1.000 H, Neut % (Auto) 68.2, Lymph % (Auto) 25.2, [place] % (Auto) 4.2, Eos % (Auto) 1.2, Baso % (Auto) 0.2, Absolute Neuts (auto) 3.4, Absolute Lymphs (auto) 1.25, Anisocytosis 1+, Sodium 144, Potassium 3.6, Chloride 116 H, Carbon Dioxide 18.3 L, Anion Gap 10, BUN 14, Creatinine 0.71, Estim Creat Clear Calc 82.75, Est GFR (MDRD) Non-Af 98, BUN/Creatinine Ratio 20.1 H, Glucose 135 H, Calcium 6.9 L, Phosphorus 2.1 L, Total Bilirubin 0.34, Direct Bilirubin 0.16, AST 24, ALT 24, Alkaline Phosphatase 120, Total Protein 5.3 L, Albumin 2.9 L, Globulin 2.4 Micro: Microbiology 10/15/24 05:10 Blood Culture (Wb) - Right Hand Blood Culture - Preliminary 10/15/24 04:47 Blood Culture (Wb) - Anticubital Left Bacteria Detection (PCR) - Final Strep anginosus 10/15/24 04:47 Blood Culture (Wb) - Anticubital Left Blood Culture - Preliminary 10/15/24 05:10 Urine, Clean Catch Urine Culture - Final Culture exhibits no growth. 10/15/24 09:45 Mucosa - Nose Respiratory Panel (PCR) - Final 10/15/24 11:10 Nasal Secretion MRSA (PCR) - Final 10/15/24 09:45 Urine Catheter - Catheter Legionella Antigen - Final 10/15/24 09:45 Urine Catheter - Catheter Streptococcus pneumoniae Antigen (M - Final Physical Exam Narrative GENERAL: cooperative HEENT: Atraumatic; scalp wound EYES; Anicteric, Normal Conjunctiva NECK; supple, normal thyroid, RESPIRATORY: Diminished to auscultation CARDIOVASCULAR: Regular S1 S2, GI: soft, normoactive bowel sounds, : No Renal angle tenderness; EXTREMITIES: No edema, no clubbing, MUSCULOSKELETAL: no muscle wasting NEURO: Awake; no lateralizing signs. SKIN: No Rash PSYCH; Flat affect Assessment & Plan Assessment/Plan (1) Hypotension: PLAN: Plan Patient is a 69-year-old gentleman with recent admission for acute cholecystitis with strep and haemophilus bacteremia who presented to the emergency department with progressive generalized weakness as well as fever. Patient was found to be hypotensive admitted to the intensive care unit for further management 1. Septic shock ? Of undetermined source. Patient presented with progressive generalized weakness fever and hypotension. Given patient recent admission for acute cholecystitis with strep and haemophilus bacteremia patient was started on broad-spectrum antibiotic therapy admitted to the intensive care unit resuscitated with IV fluid and patient did not require Levophed.Patient cultures obtained so far positive for Strep anginosus. Patient was transferred from the ICU to PCU following stabilization. Patient previous culture grew strep intermedius and haemophilus parainfluenza. Ordered 2D echo given patient strep bacteremia. Subsequent management decisions deferred to ID 2. Hypokalemia ? Corrected per protocol 3. Hypophosphatemia ? Corrected per protocol 4. Stage IV prostate cancer with mets to the bone ? Patient follows up with oncology and is currently in immunotherapy 5. Anemia ? Secondary to chronic disorder monitoring H&H and transfuse if patient becomes symptomatic or hemoglobin falls below 7 6. Thrombocytopenia Appears to be chronic will monitor 7. Squamous cell carcinoma involving the scalp ? Status post excision 4 months prior 8. Physical deconditioning ? Requested for PT OT eval and social science manager to assist with discharge planning 9. DVT prophylaxis ? Enoxaparin Time spent in the patient's overall evaluation,decision-making process, review of diagnostic data, adjustment of management, discussion with other providers, nursing nursing and ancillary staff involved in patient's care documentation, 50 Minutes Charges/Coding Visit Charges Inpatient E&M: 70635 [facility] L3
[2024-10-18] MEDS: Ensure Plus High Protein 120 ML LIQUID PO ×3 (10:54→18:34)
[2024-10-18 12:35] VITALS: BP 116/71; PULSE 77; RESP 18; TEMP 36.2; O2SAT 98
[2024-10-18] MEDS: 0.9% Saline Lock 10 ML Syringe IV ×2 (14:58→23:10)
[2024-10-18] MEDS: Ceftriaxone 2 GM in 0.9% Normal Saline (50mL MB+) 50 ML IV (14:59)
--- NOTE | 2024-10-18 14:59 | PCM.PN.ID ---
Physical Exam Narrative Feeling back to normal, no fever, no abd pain, no dental issues, no n/v/d. Const alert and no apparent distress General Appearance: cooperative Resp normal air movement and clear to auscultation bilaterally Cardio regular rate and regular rhythm GI soft to palpation, non-tender and non-distended Skin no rashes or lesions noted ID ID: Route of nutrition/ use of supplements: [] Nutritional Intake: [] IV Site: [] Loza Catheter: [] Assessment & Plan Assessment/Plan (1) Prostate cancer: (2) Septic shock: PLAN: Admit 3 weeks ago with suspected cholecystitis and strep and haemophilus bacteremia. LFTs improved, CT and US done here with no sign of infection. No focal symptoms other than back pain, but no tenderness on exam. UAgs neg. On empiric vanc/zosyn, will narrow to ceftriaxone/flagyl for now. Bcx (+) strep anginosus. Plan on discharge home with 10 days po augmentin 875mg bid. Will follow as needed
--- NOTE | 2024-10-18 16:06 | CHAPLAIN ---
Type of Pastoral Visit _x__ Initial Visit ___ Follow-up Visit ___ On-call Visit ___ General Patient Visit ___ Spiritual Assessment ___ Family Conference ___ Bereavement ___ Rapid Response ___ Code Blue ___ Other (describe below) Pastoral Care Referral From _x__ Patient ___ Family ___ Nurse ___ Physician ___ Public Relations Officer ___ Assistant Dean Of Students ___ Other (describe below) Sacrament/Intervention _x__ Active listening ___ Anointing ___ Hoahaoism ___ Bereavement ___ Communion _x__ Camilla exploration ___ _x__ Life review _x__ Prayer ___ Reconciliation ___ Sacrament of Sick ___ Supportive presence ___ Wedding ___ Other (describe below) Pastoral Comments patient is welcoming and explains that this is his second admission in two weeks; pt has been in the hospital for four nights and was previously in for four nights; pt admits to some frustration on this return to the hospital; pt does have good family and anabaptism support that is consistent and available locally; pt states that the main thing is to find some answers and otherwise he is doing pretty well; pt welcomes a casual conversation
--- NOTE | 2024-10-18 16:33 | PCM.DC.SUM ---
Providers Date of Admission: 10/15/24 Primary Care Physician: Dr. López Ocampo MD Consultations 10/15/24 10:23 Consult: Infectious Disease Routine Consulting Provider: Rocco Fatima Reason for Consult: Septic shock, unclear source EMERGENT Consult: No Notified: Yes Date Notified: 10/15/24 Time Notified: 10:13 Method of Notification: Text Consult: Gasoline Engine Inspector / Pulmonary Medicine Routine Consulting Provider: Intensivists/Pulmonary Med Reason for Consult: Septic shock EMERGENT Consult: No Notified: Yes Date Notified: 10/15/24 Time Notified: 08:40 Method of Notification: Verbal Reason For Visit: SEPTIC SHOCK Diagnosis Discharge Diagnosis (1) Prostate cancer: Status: Acute Code(s): C61 - Malignant neoplasm of prostate (2) Septic shock: Status: Acute Code(s): A41.9 - Sepsis, unspecified organism; R65.21 - Severe sepsis with septic shock Plan Patient is a 69-year-old gentleman with recent admission for acute cholecystitis with strep and haemophilus bacteremia who presented to the emergency department with progressive generalized weakness as well as fever. Patient was found to be hypotensive admitted to the intensive care unit for further management 1. Septic shock ? Of undetermined source. Patient presented with progressive generalized weakness fever and hypotension. Given patient recent admission for acute cholecystitis with strep and haemophilus bacteremia patient was started on broad-spectrum antibiotic therapy admitted to the intensive care unit resuscitated with IV fluid and patient did not require Levophed.Patient cultures obtained so far positive for Strep anginosus. Patient was transferred from the ICU to PCU following stabilization. Patient previous culture grew strep intermedius and haemophilus parainfluenza. Ordered 2D echo given patient strep bacteremia. Subsequent management decisions deferred to ID ? Patient was seen in consultation by Dr. Fatima with ID recommended for patient to be discharged home on Augmentin for 10 days 2. Hypokalemia ? Corrected per protocol 3. Hypophosphatemia ? Corrected per protocol 4. Stage IV prostate cancer with mets to the bone ? Patient follows up with oncology and is currently in immunotherapy 5. Anemia ? Secondary to chronic disorder monitoring H&H and transfuse if patient becomes symptomatic or hemoglobin falls below 7 6. Thrombocytopenia Appears to be chronic will monitor 7. Squamous cell carcinoma involving the scalp ? Status post excision 4 months prior 8. Physical deconditioning ? Requested for PT OT eval and social welfare administrator to assist with discharge planning 9. DVT prophylaxis ? Enoxaparin Time spent in the patient's overall evaluation,decision-making process, review of diagnostic data, adjustment of management, discussion with other providers, nursing nursing and ancillary staff involved in patient's care documentation, 50 Minutes Medications at Discharge Home Medications abiraterone 250 mg tablet 1,000 mg PO DAILY prostate cancer 12/11/23 atorvastatin 20 mg tablet 20 mg PO QHS cholesterol 12/11/23 prednisone 5 mg tablet 10 mg PO BID prostate 12/11/23 tamsulosin 0.4 mg capsule 0.4 mg PO DAILY prostate 12/11/23 leuprolide acetate (6 month) 45 mg (6 month) subcutaneous syringe (Eligard) 45 mg subcut .COMPLEX 02/05/24 calcium 600 mg (as carbonate)-vitamin D3 5 mcg (200 unit) tablet (Calcium 600 + D(3)) 2 tab PO DAILY calcium 10/15/24 cimetidine 200 mg tablet (Heartburn Relief (cimetidine)) 200 mg PO DAILY 10/15/24 darbepoetin dagmar in polysorbat 25 mcg/mL in polysorbate injection (Aranesp) 25 mcg subcut QMONTH 10/15/24 amoxicillin 875 mg-potassium clavulanate 125 mg tablet 1 tab PO BID #20 tabs 10/18/24 Physical Exam Narrative GENERAL: cooperative HEENT: Atraumatic; scalp wound EYES; Anicteric, Normal Conjunctiva NECK; supple, normal thyroid, RESPIRATORY: Diminished to auscultation CARDIOVASCULAR: Regular S1 S2, GI: soft, normoactive bowel sounds, : No Renal angle tenderness; EXTREMITIES: No edema, no clubbing, MUSCULOSKELETAL: no muscle wasting NEURO: Awake; no lateralizing signs. 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 Status Active Problem Recommendation Dietitian Adjust to liberal regular diet. Recommendations/ Will order 120ml chocolate EPHP 4x daily with medpass. Changes Will monitor weight trends. Weight / BMI Weight Weight: 77 kg Body Mass Index (BMI) 27.3 ABG / Lab / Microbiology Data 10/18/24 05:20 10/18/24 05:20 Laboratory: Laboratory Results - last 24 hr 10/18/24 05:20: WBC 5.0, RBC 3.03 L, Hgb 7.7 L, Hct 25.2 L, MCV 83.2, MCH 25.4 L, MCHC 30.6 L, RDW Std Deviation 63.2 H, RDW Coeff of Lydia 20.7 H, Plt Count 130 L, MPV 9.2, Immature Gran % (Auto) 1.000 H, Neut % (Auto) 68.2, Lymph % (Auto) 25.2, [place] % (Auto) 4.2, Eos % (Auto) 1.2, Baso % (Auto) 0.2, Absolute Neuts (auto) 3.4, Absolute Lymphs (auto) 1.25, Anisocytosis 1+, Sodium 144, Potassium 3.6, Chloride 116 H, Carbon Dioxide 18.3 L, Anion Gap 10, BUN 14, Creatinine 0.71, Estim Creat Clear Calc 82.75, Est GFR (MDRD) Non-Af 98, BUN/Creatinine Ratio 20.1 H, Glucose 135 H, Calcium 6.9 L, Phosphorus 2.1 L, Total Bilirubin 0.34, Direct Bilirubin 0.16, AST 24, ALT 24, Alkaline Phosphatase 120, Total Protein 5.3 L, Albumin 2.9 L, Globulin 2.4 Microbiology: Microbiology 10/15/24 04:47 Blood Culture (Wb) - Anticubital Left Bacteria Detection (PCR) - Final Strep anginosus 10/15/24 04:47 Blood Culture (Wb) - Anticubital Left Blood Culture - Final Streptococcus intermedius 10/15/24 05:10 Blood Culture (Wb) - Right Hand Blood Culture - Preliminary 10/15/24 05:10 Urine, Clean Catch Urine Culture - Final Culture exhibits no growth. 10/15/24 09:45 Mucosa - Nose Respiratory Panel (PCR) - Final 10/15/24 11:10 Nasal Secretion MRSA (PCR) - Final 10/15/24 09:45 Urine Catheter - Catheter Legionella Antigen - Final 10/15/24 09:45 Urine Catheter - Catheter Streptococcus pneumoniae Antigen (M - Final Meaningful Use Info Meaningful Use Meaningful Use Diagnoses (Choose all that apply): None applicable Discharge Plan Admission Admit Date/Time: 10/15/24 08:35 Attending Provider: Cyril Ashley Primary Care Provider: López Ocampo Consulting Providers: Rocco Fatima; Edmundo Crabtree; Daryl Roberts; Willem Simeon; Carlos Melvin; Cyril Mo; Saud Rodriguez; Iker Shi; Angela Bales; Jose Boss; Charly Brown; Sukhwinder Skinner; Vita Samano; Corina Rodriguez; Serena Varner; Cem Maciel; Leonardo Roberts; Oli Salinas; Yunior Mane; Eugene Ann; Olga Diallo; Ryan Blount; Praneeth Hoyt; Jose David Soliz; Lety Augustine Discharge Orders/Prescriptions Prescriptions: New amoxicillin-pot clavulanate 875-125 mg tablet 1 tab PO BID Qty: 20 0RF Continued Eligard (6 month) 45 mg syringe 45 mg subcut .COMPLEX Rx Instructions: 45 mg subcutaneously EVERY 6 MONTHS; cimetidine [Heartburn Relief (cimetidine)] 200 mg tablet 200 mg PO DAILY Rx Instructions: administer with meals Aranesp (in polysorbate) 25 mcg/mL solution 25 mcg subcut QMONTH calcium carbonate-vitamin D3 [Calcium 600 + D(3)] 600 mg-5 mcg (200 unit) tablet 2 tab PO DAILY atorvastatin 20 mg tablet 20 mg PO QHS prednisone 5 mg tablet 10 mg PO BID tamsulosin 0.4 mg capsule 0.4 mg PO DAILY abiraterone 250 mg tablet 1,000 mg PO DAILY Referrals / Follow Up: López Ocampo MD [Primary Care Provider] -
--- NOTE | 2024-10-18 16:45 | ECHOD_ITS ---
Reason For Study Reason For Study: EMBOLI Procedure This was a 2D Doppler, Color Flow transthoracic echocardiogram. Exam performed portable in patient room. Left Ventricle Normal LV size. Mild concentric left ventricular hypertrophy. The LV ejection fraction is 60 %. Stage 1 diastolic dysfunction. Right Ventricle Normal right ventricle. Atria There is mild biatrial dilatation. No bubble contrast study done. No evidence of PFO/ASD on color Doppler. Mitral Valve Mild mitral valve annular calcification. Mildly thickened mitral valve leaflets. Moderate posteriorly directed mitral valve regurgitation. Tricuspid Valve Mild tricuspid valve insufficiency. Right ventricular systolic pressure estimated to be 45 mmHg. Aortic Valve Mild aortic valve annular calcification. Aortic valve sclerosis without stenosis. Pulmonic Valve The pulmonic valve is not well visualized. Great Vessels Normal sized aortic root. Pericardium/Pleural No pericardial effusion. MMode/2D Measurements & Calculations LVIDd: 4.9 cm IVSd: 1.1 cm LVOT diam: 2.0 cm LVIDs: 3.8 cm LVPWd: 1.3 cm LVOT area: 3.2 cm2 RVDd: 3.6 cm FS: 21.1 % LA dimension: 4.4 cm asc Aorta Diam: 3.1 cm LAV(MOD- bp): 47.6 ml LAV(MOD- bp) Indexed: 25.5 ml/m2 LAV(MOD- sp2): 46.8 ml LAV(MOD- sp4): 48.1 ml SV(MOD- sp4): 45.4 ml LVAd ap4: 25.7 cm2 LVAd ap2: 24.4 cm2 LVLd ap4: 7.9 cm LVLd ap2: 7.8 cm SI(MOD- sp4): 24.4 ml/m2 EDV(MOD-sp4): 69.6 ml EDV(MOD-sp2): 64.5 ml EDV(sp4-el): 70.9 ml EDV(sp2-el): 64.5 ml LVAs ap4: 14.0 cm2 LVAs ap2: 14.9 cm2 LVLs ap4: 6.8 cm LVLs ap2: 6.6 cm ESV(MOD-sp4): 24.2 ml ESV(MOD-sp2): 27.7 ml ESV(sp4-el): 24.3 ml ESV(sp2-el): 28.7 ml EF(MOD-sp4): 65.2 % EF(MOD-sp2): 57.0 % EF(sp4-el): 65.7 % SV(MOD-sp2): 36.8 ml SV(sp4-el): 46.6 ml Ao sinus diam: 3.4 cm SI(MOD-sp2): 19.8 ml/m2 Ao ST Junction: 2.6 cm LA dimension(2D): 4.5 cm LA A4 area: 19.3 cm2 TAPSE: 2.5 cm RA A4 area: 18.6 cm2 Doppler Measurements & Calculations MV E max yayo: 99.3 cm/sec Lat Peak E' Yayo: 10.2 cm/sec Med Peak E' Yayo: 8.4 cm/sec MV A max yayo: 106.2 cm/sec E/E' lat: 9.7 E/E' med: 11.9 MV E/A: 0.93 MV P1/2t max yayo: 103.3 cm/sec Ao V2 max: 157.2 cm/sec LV V1 max: 84.3 cm/sec MV P1/2t: 32.6 msec Ao max P.9 mmHg LV V1 max P.8 mmHg MV dec slope: 927.3 cm/sec2 Ao V2 mean: 100.9 cm/sec LV V1 mean P.6 mmHg Ao mean P.7 mmHg LV V1 mean: 58.2 cm/sec MVA(P1/2t): 6.7 cm2 Ao V2 VTI: 37.1 cm LV V1 VTI: 24.3 cm AV (velocity ratio): 0.65 JAILYN(I,D): 2.1 cm2 JAILYN(V,D): 1.7 cm2 SV(LVOT): 77.6 ml PA V2 max: 67.9 cm/sec TR max yayo: 277.1 cm/sec TR max P.7 mmHg ECHO/Echo Complete Interpretation Summary Mild concentric left ventricular hypertrophy. The LV ejection fraction is 60 %. Stage 1 diastolic dysfunction. There is mild biatrial dilatation. Mild mitral valve annular calcification. Mildly thickened mitral valve leaflets . Moderate posteriorly directed mitral valve regurgitation. Mild tricuspid valve insufficiency. Right ventricular systolic pressure estimated to be 45 mmHg. Mild aortic valve annular calcification. Aortic valve sclerosis without stenosi s. Ordering Physician: Cyril Ashley Performed By: Yanni Kee RDCS and Student
[2024-10-18 17:30] VITALS: BP 141/78; PULSE 80; RESP 16; TEMP 36.3; O2SAT 100
[2024-10-18 19:00] VITALS: PULSE 77
[2024-10-18 23:13] VITALS: BP 158/86; PULSE 74; RESP 17; TEMP 36.7; O2SAT 100
[2024-10-19 03:00] VITALS: PULSE 70
[2024-10-19 03:18] VITALS: BP 140/76; PULSE 77; RESP 17; TEMP 36.8; O2SAT 97
[2024-10-19 04:48] VITALS: BMI 27.4
[2024-10-19 06:12] LABS: Hematocrit 25.4 % (40-54); Hemoglobin 7.7 g/dL (13.0-16.5); Immature Granulocytes Count 0.060 X10^3/uL (0.0-0.0); Mean Corp Hgb Conc 30.3 g/dL (32-36); Mean Corpuscular Volume 81.2 fL (80-94); Mean Platelet Vol. 9.4 fl (6.2-12.0); NRBC Flagged by Analyzer 0 % (0-5); POSITIVE MORPHOLOGY YES; Platelet Count 144 K/mm3 (150-450); RBC Distribution Width CV 20.7 % (11.6-14.6); RBC Distribution Width SD 61.5 fl (35.1-43.9); Red Blood Count 3.13 M/mm3 (4.6-6.2); White Blood Count 5.1 K/mm3 (4.4-11.0)
[2024-10-19 06:19] LABS: Differential Indicated SCAN CRITERIA MET
[2024-10-19 06:37] LABS: Anion Gap 9 (5-15); BUN 16 mg/dL (4-19); BUN/Creat Ratio 26.5 RATIO (10-20); Calcium,Total 7.2 mg/dL (7.6-11.0); Carbon Dioxide 20.8 mmol/L (21.0-32.0); Chloride 111 mmol/L (98-108); Estimated Creatinine Clearance 82.80 ml/min (50-250); Glucose 126 mg/dL (70-99); Magnesium 1.8 mg/dL (1.5-2.2); Potassium 3.8 mmol/L (3.3-5.1)
[2024-10-19 07:13] LABS: Anisocytosis 1+; Tear Drop Cell 1+
--- NOTE | 2024-10-19 07:23 | PCM.PN.HOSP ---
Reason for Visit Chief Complaint: Fever, chills, fatigue, malaise. Subjective Subjective Patient's final blood cultures positive for Streptococcus intermedius. Patient grew the same organism on 09/18/2024. 2D echo was ordered for subsequent eval. ID is on board. Objective Data Objective Data Vital Signs: Vital Signs Temp Pulse Resp BP Pulse Ox O2 Del Method O2 Flow Rate 98.2 F 77 17 140/76 H 97 Room Air 2 10/19/24 03:18 10/19/24 03:18 10/19/24 03:18 10/19/24 03:18 10/19/24 03:18 10/19/24 03:10/16/24 12:00 Oxygen Flow Rate (L/min) 2 Oxygen Delivery Method Room Air Weight: 77.1 kg Body Mass Index (BMI) 27.4 Intake & Output: Intake and Output for Last 24 Hours 10/17/24 10/18/24 10/19/24 23:59 23:59 23:59 Intake Total 5292.75 / 5772.75 3765.25 / 3765.25 Output Total 850 / 1450 1475 / 1475 Balance 4442.75 / 4322.75 2290.25 / 2290.25 Medical Nutrition Assessment Dietitian: Malnutrition Criteria Met Start: 10/16/24 14:00 Freq: Status: Active Protocol: Document 10/16/24 14:00 SB (Rec: 10/16/24 14:00 SB [id number]) Nutrition Malnutrition Evidence of Yes Malnutrition Exists Malnutrition (severe Chronic ): Evidenced By Suboptimal Energy Intake (Severe),Weight Loss (Severe) Clinical Problem Chronic Disease or Condition Related Malnutrition Etiology 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 Status Active Problem Recommendation Dietitian Adjust to liberal regular diet. Recommendations/ Will order 120ml chocolate EPHP 4x daily with medpass. Changes Will monitor weight trends. Lab / Micro Data 10/19/24 05:36 10/19/24 05:36 Labs: Laboratory Results - last 24 hr 10/18/24 05:20: WBC 5.0, RBC 3.03 L, Hgb 7.7 L, Hct 25.2 L, MCV 83.2, MCH 25.4 L, MCHC 30.6 L, RDW Std Deviation 63.2 H, RDW Coeff of Lydia 20.7 H, Plt Count 130 L, MPV 9.2, Immature Gran % (Auto) 1.000 H, Neut % (Auto) 68.2, Lymph % (Auto) 25.2, Toole % (Auto) 4.2, Eos % (Auto) 1.2, Baso % (Auto) 0.2, Absolute Neuts (auto) 3.4, Absolute Lymphs (auto) 1.25, Anisocytosis 1+ 10/19/24 05:36: WBC 5.1, RBC 3.13 L, Hgb 7.7 L, Hct 25.4 L, MCV 81.2, MCH 24.6 L, MCHC 30.3 L, RDW Std Deviation 61.5 H, RDW Coeff of Lydia 20.7 H, Plt Count 144 L, MPV 9.4, Immature Gran % (Auto) 1.200 H, Neut % (Auto) 69.6, Lymph % (Auto) 21.5, Toole % (Auto) 5.7, Eos % (Auto) 2.0, Baso % (Auto) 0.0, Absolute Neuts (auto) 3.5, Absolute Lymphs (auto) 1.09, Nucleated RBC % 0, Platelet Estimate SLT DEC, Anisocytosis 1+, Tear Drop Cells 1+, Ovalocytes 1+, Sodium 140, Potassium 3.8, Chloride 111 H, Carbon Dioxide 20.8 L, Anion Gap 9, BUN 16, Creatinine 0.62 L, Estim Creat Clear Calc 82.80, Est GFR (MDRD) Non-Af 102, BUN/Creatinine Ratio 26.5 H, Glucose 126 H, Calcium 7.2 L, Phosphorus 2.0 L, Magnesium 1.8 Micro: Microbiology 10/15/24 04:47 Blood Culture (Wb) - Anticubital Left Bacteria Detection (PCR) - Final Strep anginosus 10/15/24 04:47 Blood Culture (Wb) - Anticubital Left Blood Culture - Final Streptococcus intermedius 10/15/24 05:10 Blood Culture (Wb) - Right Hand Blood Culture - Preliminary 10/15/24 05:10 Urine, Clean Catch Urine Culture - Final Culture exhibits no growth. 10/15/24 09:45 Mucosa - Nose Respiratory Panel (PCR) - Final 10/15/24 11:10 Nasal Secretion MRSA (PCR) - Final 10/15/24 09:45 Urine Catheter - Catheter Legionella Antigen - Final 10/15/24 09:45 Urine Catheter - Catheter Streptococcus pneumoniae Antigen (M - Final Physical Exam Narrative GENERAL: cooperative HEENT: Atraumatic; scalp wound EYES; Anicteric, Normal Conjunctiva NECK; supple, normal thyroid, RESPIRATORY: Diminished to auscultation CARDIOVASCULAR: Regular S1 S2, GI: soft, normoactive bowel sounds, : No Renal angle tenderness; EXTREMITIES: No edema, no clubbing, MUSCULOSKELETAL: no muscle wasting NEURO: Awake; no lateralizing signs. SKIN: No Rash PSYCH; Flat affect Assessment & Plan Assessment/Plan (1) Prostate cancer: (2) Septic shock: PLAN: Plan Patient is a 69-year-old gentleman with recent admission for acute cholecystitis with strep and haemophilus bacteremia who presented to the emergency department with progressive generalized weakness as well as fever. Patient was found to be hypotensive admitted to the intensive care unit for further management 1. Septic shock ? Of undetermined source. Patient presented with progressive generalized weakness fever and hypotension. Given patient recent admission for acute cholecystitis with strep and haemophilus bacteremia patient was started on broad-spectrum antibiotic therapy admitted to the intensive care unit resuscitated with IV fluid and patient did not require Levophed.Patient cultures obtained so far positive for Strep anginosus. Patient was transferred from the ICU to PCU following stabilization. Patient previous culture grew strep intermedius and haemophilus parainfluenza. Ordered 2D echo given patient strep bacteremia. Subsequent management decisions deferred to ID ? Patient was seen in consultation by Dr. Fatima with ID recommended for patient to be discharged home on Augmentin for 10 days ? 10/19/2024;Patient's final blood cultures positive for Streptococcus intermedius. Patient grew the same organism on 09/18/2024. 2D echo was ordered for subsequent eval. ID is on board. 2. Hypokalemia ? Corrected per protocol 3. Hypophosphatemia ? Corrected per protocol 4. Stage IV prostate cancer with mets to the bone ? Patient follows up with oncology and is currently in immunotherapy 5. Anemia ? Secondary to chronic disorder monitoring H&H and transfuse if patient becomes symptomatic or hemoglobin falls below 7 6. Thrombocytopenia Appears to be chronic will monitor 7. Squamous cell carcinoma involving the scalp ? Status post excision 4 months prior 8. Physical deconditioning ? Requested for PT OT eval and psychiatric social worker supervisor to assist with discharge planning 9. DVT prophylaxis ? Enoxaparin Charges/Coding Visit Charges Inpatient E&M: 56244 Subs Hosp L2
[2024-10-19 08:45] VITALS: BP 153/81; PULSE 71; RESP 14; TEMP 35.9; O2SAT 98
[2024-10-19] MEDS: Ceftriaxone 2 GM in 0.9% Normal Saline (50mL MB+) 50 ML IV (10:00)
[2024-10-19] MEDS: Ensure Plus High Protein 120 ML LIQUID PO (10:16)
--- NOTE | 2024-10-19 13:38 | PCM.DC.SUM ---
Providers Date of Admission: 10/15/24 Date of Discharge: 10/19/24 Primary Care Physician: Dr. López Ocampo MD Consultations 10/15/24 10:23 Consult: Infectious Disease Routine Consulting Provider: Rocco Fatima Reason for Consult: Septic shock, unclear source EMERGENT Consult: No Notified: Yes Date Notified: 10/15/24 Time Notified: 10:13 Method of Notification: Text Consult: Rolls Baker / Pulmonary Medicine Routine Consulting Provider: Intensivists/Pulmonary Med Reason for Consult: Septic shock EMERGENT Consult: No Notified: Yes Date Notified: 10/15/24 Time Notified: 08:40 Method of Notification: Verbal Reason For Visit: SEPTIC SHOCK Diagnosis Discharge Diagnosis (1) Prostate cancer: Status: Acute Code(s): C61 - Malignant neoplasm of prostate (2) Septic shock: Status: Acute Code(s): A41.9 - Sepsis, unspecified organism; R65.21 - Severe sepsis with septic shock Plan Patient is a 69-year-old gentleman with recent admission for acute cholecystitis with strep and haemophilus bacteremia who presented to the emergency department with progressive generalized weakness as well as fever. Patient was found to be hypotensive admitted to the intensive care unit for further management 1. Septic shock ? Of undetermined source. Patient presented with progressive generalized weakness fever and hypotension. Given patient recent admission for acute cholecystitis with strep and haemophilus bacteremia patient was started on broad-spectrum antibiotic therapy admitted to the intensive care unit resuscitated with IV fluid and patient did not require Levophed.Patient cultures obtained so far positive for Strep anginosus. Patient was transferred from the ICU to PCU following stabilization. Patient previous culture grew strep intermedius and haemophilus parainfluenza. Ordered 2D echo given patient strep bacteremia. Subsequent management decisions deferred to ID ? Patient was seen in consultation by Dr. Fatima with ID recommended for patient to be discharged home on Augmentin for 10 days ? 10/19/2024;Patient's final blood cultures positive for Streptococcus intermedius. Patient grew the same organism on 09/18/2024. 2D echo was ordered for subsequent eval. ID is on board. ? Patient echo did not show any evidence of vegetation. Case was discussed with Dr. Her prior to patient being discharged home 2. Hypokalemia ? Corrected per protocol 3. Hypophosphatemia ? Corrected per protocol 4. Stage IV prostate cancer with mets to the bone ? Patient follows up with oncology and is currently in immunotherapy 5. Anemia ? Secondary to chronic disorder monitoring H&H and transfuse if patient becomes symptomatic or hemoglobin falls below 7 6. Thrombocytopenia Appears to be chronic will monitor 7. Squamous cell carcinoma involving the scalp ? Status post excision 4 months prior 8. Physical deconditioning ? Requested for PT OT eval and community mental health social worker to assist with discharge planning 9. DVT prophylaxis ? Enoxaparin Medications at Discharge Home Medications abiraterone 250 mg tablet 1,000 mg PO DAILY prostate cancer 12/11/23 atorvastatin 20 mg tablet 20 mg PO QHS cholesterol 12/11/23 prednisone 5 mg tablet 10 mg PO BID prostate 12/11/23 tamsulosin 0.4 mg capsule 0.4 mg PO DAILY prostate 12/11/23 leuprolide acetate (6 month) 45 mg (6 month) subcutaneous syringe (Eligard) 45 mg subcut .COMPLEX 02/05/24 calcium 600 mg (as carbonate)-vitamin D3 5 mcg (200 unit) tablet (Calcium 600 + D(3)) 2 tab PO DAILY calcium 10/15/24 cimetidine 200 mg tablet (Heartburn Relief (cimetidine)) 200 mg PO DAILY 10/15/24 darbepoetin dagmar in polysorbat 25 mcg/mL in polysorbate injection (Aranesp) 25 mcg subcut QMONTH 10/15/24 amoxicillin 875 mg-potassium clavulanate 125 mg tablet 1 tab PO BID #20 tabs 10/18/24 Hospital Course Summary of Care Provided Minutes Spent on Discharge: 35 Physical Exam Narrative GENERAL: cooperative HEENT: Atraumatic; scalp wound EYES; Anicteric, Normal Conjunctiva NECK; supple, normal thyroid, RESPIRATORY: Diminished to auscultation CARDIOVASCULAR: Regular S1 S2, GI: soft, normoactive bowel sounds, : No Renal angle tenderness; EXTREMITIES: No edema, no clubbing, MUSCULOSKELETAL: no muscle wasting NEURO: Awake; no lateralizing signs. 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 Status Active Problem Recommendation Dietitian Adjust to liberal regular diet. Recommendations/ Will order 120ml chocolate EPHP 4x daily with medpass. Changes Will monitor weight trends. Weight / BMI Weight Weight: 77.1 kg Body Mass Index (BMI) 27.4 ABG / Lab / Microbiology Data 10/19/24 05:36 10/19/24 05:36 Laboratory: Laboratory Results - last 24 hr 10/19/24 05:36: WBC 5.1, RBC 3.13 L, Hgb 7.7 L, Hct 25.4 L, MCV 81.2, MCH 24.6 L, MCHC 30.3 L, RDW Std Deviation 61.5 H, RDW Coeff of Lydia 20.7 H, Plt Count 144 L, MPV 9.4, Immature Gran % (Auto) 1.200 H, Neut % (Auto) 69.6, Lymph % (Auto) 21.5, Winkler % (Auto) 5.7, Eos % (Auto) 2.0, Baso % (Auto) 0.0, Absolute Neuts (auto) 3.5, Absolute Lymphs (auto) 1.09, Nucleated RBC % 0, Platelet Estimate SLT DEC, Anisocytosis 1+, Tear Drop Cells 1+, Ovalocytes 1+, Sodium 140, Potassium 3.8, Chloride 111 H, Carbon Dioxide 20.8 L, Anion Gap 9, BUN 16, Creatinine 0.62 L, Estim Creat Clear Calc 82.80, Est GFR (MDRD) Non-Af 102, BUN/Creatinine Ratio 26.5 H, Glucose 126 H, Calcium 7.2 L, Phosphorus 2.0 L, Magnesium 1.8 Microbiology: Microbiology 10/15/24 05:10 Blood Culture (Wb) - Right Hand Blood Culture - Final Alpha hemolytic organism 10/15/24 04:47 Blood Culture (Wb) - Anticubital Left Bacteria Detection (PCR) - Final Strep anginosus 10/15/24 04:47 Blood Culture (Wb) - Anticubital Left Blood Culture - Final Streptococcus intermedius 10/15/24 05:10 Urine, Clean Catch Urine Culture - Final Culture exhibits no growth. 10/15/24 09:45 Mucosa - Nose Respiratory Panel (PCR) - Final 10/15/24 11:10 Nasal Secretion MRSA (PCR) - Final 10/15/24 09:45 Urine Catheter - Catheter Legionella Antigen - Final 10/15/24 09:45 Urine Catheter - Catheter Streptococcus pneumoniae Antigen (M - Final Radiography Diagnostic Testing: Radiology Impression Echocardiogram 10/18/24 16:45 Interpretation Summary Mild concentric left ventricular hypertrophy. The LV ejection fraction is 60 %. Stage 1 diastolic dysfunction. There is mild biatrial dilatation. Mild mitral valve annular calcification. Mildly thickened mitral valve leaflets. Moderate posteriorly directed mitral valve regurgitation. Mild tricuspid valve insufficiency. Right ventricular systolic pressure estimated to be 45 mmHg. Mild aortic valve annular calcification. Aortic valve sclerosis without stenosis. Ordering Physician: Cyril Ashley Performed By: Yanni Kee RDCS and Student D/C Instructions Discharge Activity: Return to Normal Activity Call your doctor if you observe: Fever of 101 or Higher, Shortness of breath, Fainting spells and Chest pain DC O2, CPAP, BIPAP Needs Home O2 Discharge instructions: No Meaningful Use Info Meaningful Use Meaningful Use Diagnoses (Choose all that apply): None applicable Discharge Plan Admission Admit Date/Time: 10/15/24 08:35 Attending Provider: Cyril Ashley Primary Care Provider: López Ocampo Consulting Providers: Rocco Fatima; Edmundo Crabtree; Daryl Roberts; Willem Simeon; Carlos Melvin; Cyril Mo; Saud Rodriguez; Iker Shi; Angela Bales; Jose Boss; Charly Brown; Sukhwinder Skinner; Vita Samano; Corina Rodriguez; Serena Varner; Cem Maciel; Leonardo Roberts; Oli Salinas; Yunior Mane; Eugene Ann; Olga Diallo; Ryan Blount; Praneeth Hoyt; Jose David Soliz; Lety Augustine Discharge Orders/Prescriptions Prescriptions: New amoxicillin-pot clavulanate 875-125 mg tablet 1 tab PO BID Qty: 20 0RF Continued Eligard (6 month) 45 mg syringe 45 mg subcut .COMPLEX Rx Instructions: 45 mg subcutaneously EVERY 6 MONTHS; cimetidine [Heartburn Relief (cimetidine)] 200 mg tablet 200 mg PO DAILY Rx Instructions: administer with meals Aranesp (in polysorbate) 25 mcg/mL solution 25 mcg subcut QMONTH calcium carbonate-vitamin D3 [Calcium 600 + D(3)] 600 mg-5 mcg (200 unit) tablet 2 tab PO DAILY atorvastatin 20 mg tablet 20 mg PO QHS prednisone 5 mg tablet 10 mg PO BID tamsulosin 0.4 mg capsule 0.4 mg PO DAILY abiraterone 250 mg tablet 1,000 mg PO DAILY Referrals / Follow Up: López Ocampo MD [Primary Care Provider] - Disposition Disposition (needs filled in before D/C Order can be placed): Home, Self Care Charges/Coding Visit Charges Inpatient E&M: 01020 Disch Hosp >30min
[2024-10-19 14:49] VITALS: BP 136/90; PULSE 79; RESP 18; TEMP 36.3; O2SAT 100
[2024-10-19] MEDS: 0.9% Saline Lock 10 ML Syringe IV (14:50)
--- NOTE | 2024-10-19 15:29 | CASEMGMT ---
Patient has order for discharge. RN CM in to discuss needs at discharge. Patient denies needs or help at discharge. Patient had no further questions or concerns.
== END 2024-10-19 16:39 | disposition home or self-care (01) | DRG 871 ==
LOC: ED 08:53 → ICU 09:56 → PCU 10-17 15:33
PROVIDERS: Internal Medicine Critical Care Medicine; Admitting Provider Family Medicine; Emergency Provider Emergency Medicine; PCP Family Medicine; Visit Provider Internal Medicine
DX: A40.8 Other streptococcal sepsis (principal); R65.21 Severe sepsis with septic shock; E43 Unspecified severe protein-calorie malnutrition; C79.51 Secondary malignant neoplasm of bone; D84.9 Immunodeficiency, unspecified; N13.8 Other obstructive and reflux uropathy; D63.8 Anemia in other chronic diseases classified elsewhere; E83.39 Other disorders of phosphorus metabolism; Z66 Do not resuscitate; D69.6 Thrombocytopenia, unspecified; C61 Malignant neoplasm of prostate; I95.9 Hypotension, unspecified; N18.2 Chronic kidney disease, stage 2 (mild); E78.5 Hyperlipidemia, unspecified; E80.7 Disorder of bilirubin metabolism, unspecified; E87.6 Hypokalemia; N40.1 Benign prostatic hyperplasia with lower urinary tract symptoms; R51.9 Headache, unspecified; Z87.19 Personal history of other diseases of the digestive system; Z85.828 Personal history of other malignant neoplasm of skin; Z79.899 Other long term (current) drug therapy; Z87.891 Personal history of nicotine dependence; Z98.890 Other specified postprocedural states; Z68.27 Body mass index [BMI] 27.0-27.9, adult
CPT/HCPCS: 36415; 36569; 71045; 74177; 76705; 80048; 80076; 80202; 81001; 82533; 83605; 83690; 83735; 84100; 84145; 85025; 87040; 87077; 87086; 87149; 87186; 87449; 87633; 87641; 93306; 94668; 97802; 99213; Q9967; A4216; G0463; J0696; J0834

== ENCOUNTER 2025-03-05 19:30 | Emergency (ER) | payer MEDICARE, OTHER, SELFPAY ==
[2025-03-05] VITALS (8 sets, daily range): BP systolic 122–138; BP diastolic 57–99; PULSE 70–106; RESP 16–18; TEMP 36.5–36.8; O2SAT 92–100; BMI 25.0
[2025-03-05 20:18] LABS: Hematocrit 29.1 % (40-54); Hemoglobin 8.6 g/dL (13.0-16.5); Immature Granulocytes Count 0.020 X10^3/uL (0.0-0.0); Mean Corp Hgb Conc 29.6 g/dL (32-36); Mean Corpuscular Volume 79.9 fL (80-94); Mean Platelet Vol. 8.6 fl (6.2-12.0); NRBC Flagged by Analyzer 0 % (0-5); POSITIVE MORPHOLOGY YES; Platelet Count 296 K/mm3 (150-450); RBC Distribution Width CV 20.3 % (11.6-14.6); RBC Distribution Width SD 59.5 fl (35.1-43.9); Red Blood Count 3.64 M/mm3 (4.6-6.2); White Blood Count 7.2 K/mm3 (4.4-11.0)
[2025-03-05 20:27] LABS: Prothrombin Time (Protime)PT. 13.8 SECONDS (11.7-14.9)
[2025-03-05 20:28] LABS: Partial Thromboplast Time 26.6 Seconds (24.1-36.2)
--- OUTSIDE RECORDS SUMMARY | 2025-03-05 20:29 | XMS RPT_ITS | CCD ---
Author Organization [facility] ion [facility] Care Team Providers Care Manager Performance Name Role Phone DORCAS WHEELER Unavailable Unavailable Lucian Vicente Unavailable Unavailable Arsalan Lilly MD Primary Care Provider Natalya Dorsey RN Unavailable Natalya Dorsey RN Unavailable Unavailable Primary Care Provider UnavailJazlyn Stark III Attending Unavailable SELF, SELF Referring Unavailable Arsalan Lilly MD Primary Care Provider Natalya Dorsey RN Unavailable Arsalan Lilly MD Primary Care Provider Natalya Dorsey RN Unavailable Arsalan Lilly MD Primary Care Provider Natalya Dorsey RN Unavailable SP MCKEON Attending Unavailable ARSALAN LILLY Referring Unavailab ARSALAN Khan Primary Care Unavailab SP Her Attending Unavailable SP MCKEON Referring Unavailable ARSALAN LILLY Primary Care Unavailab ARSALAN Khan MD Primary Care Physician [phone] ARSALAN LILLY MD Primary Care Unavailshireen CRAWFORD MD, DR PERFECTO Armas Attending Unavailable Natalya Dorsey RN Unavailable Dereje Villarreal MD Unavailable Arsalan Lilly MD Primary Care Provider CATHERINE PERAZA Referring Unavailable ARSALAN LILLY Primary Care Unavailab ARSALAN Khan Primary Care Unavailab DORCAS Colon Attending Unavailab le PODLOGAR, CATHERINE Referring Unavailable ARSALAN LILLY Primary Care Unavailab DORCAS Colon Referring Unavailab le ARSALAN LILLY Primary Care Unavailab le HEATHER, DORCAS CHAN Referring Unavailab le Podlogar UI ARCHITECT.REPRINT SORTER, Catherine Unavailable Carroll NUNEZ, Suresh Unavailable Knoble UI ARCHITECT.REPRINT SORTER, Yasmine Unavailable Knoble UI ARCHITECT.REPRINT SORTER, Yasmine Unavailable Vijaya NUNEZ, Dr. Dawn Primary Care Provider Rommel NUNEZ, Dr. Ruffin Emergency Provider Jovanna NUNEZ, Dr. Ivan Puga Admit Provider Jovanna NUNEZ, Dr. Ivan Puga Attending Provider Jovanna NUNEZ, Dr. Ivan Puga Other Provider Knvalarie UI ARCHITECT.REPRINT SORTER, Yasmine Unavailable Yvette NUNEZ, Dr. Bee Other Provider Yvette NUNEZ, Dr. Bee Attending Provider Jovanna NUNEZ, Dr. Ivan Puga Referring Provider Vijaya NUNEZ, Dr. Dawn Referring Provider Luly NUNEZ, Dr. Freeman Attending Provider Dr. Sukhwinder Sierra DO Emergency Provider Davide NUNEZ, Dr. Lety Rangel Admit Provider Davide NUNEZ, Dr. Lety Rangel Attending Provider Kushal NUNEZ, Dr. Valiente Other Provider Bro NUNEZ, Dr. Wyatt Other Provider Alejandra NUNEZ, Dr. Brito Other Provider Blanco NUNEZ, Dr. Bangura Other Provider [phone] Dr. Carlos Melvin DO Other Provider Chepe NUNEZ, Dr. Tabatha Kirkland Other Provider Jennifer NUNEZ, Dr. Villavicencio Other Provider [phone] Yuridia NUNEZ, Dr. Dong Other Provider Nii NUNEZ, Dr. Miller Other Provider Karyn NUNEZ, Dr. Garcia Other Provider Kevin NUNEZ, Dr. Parks Other Provider Brody NUNEZ, Dr. Pretty Other Provider Jazmyne NUNEZ, Dr. Gorman Other Provider Michael NUNEZ, Dr. Arriaga Other Provider Unavailabl cora Varner MD, Dr. Lyons Other Provider [phone] Raheem NUNEZ, Dr. Priest Other Provider Alejandra NUNEZ, Dr. Patterson Other Provider Rita NUNEZ, Dr. Baird Other Provider Antonietta [place], Dr. Mojica Other Provider [phone] Marissa NUNEZ, Dr. Knight Other Provider [phone] Yoel NUNEZ, Dr. Espinoza Other Provider [phone] Mine [place]EN[place], Dr. Davis Other Provider Lai NUNEZ, Dr. Dacosta Other Provider Martínez NUNEZ, Dr. Main Other Provider [phone] Luly NUNEZ, Dr. Freeman Other Provider Davide NUNEZ, Dr. Lety Rangel Other Provider Gabi NUNEZ, Dr. Nam Attending Provider Unavaila ble Olegario PHOENIX, Dr. Gonzalez Attending Provider Davide NUNEZ, Dr. Lety Rangel Attending Provider Gabi NUNEZ, Dr. Nam Other Provider Unavailable Dex NUNEZ, Dr. Rogel Attending Provider Arsalan Castro MD Unavailable [phone] ENDY CURRAN Attending Unavailable PODLOGAR, CATHERINE Referring [...] Care Unavailab le HUGHESROSEANNA Attending Unavailable PODLOGAR, CAHTERINE Referring Unavailable BURSLEY, CHRISTOPHER B Primary Care [...] BURSLEY, CHRISTOPHER B Primary Care Unavailab le GLORIAARSALAN Attending Unavailable BURSLEY, CHRISTOPHER B Primary Care Unavailab le Bursley, López Primary Care Unavailable Rohit Crawford Attending Unavailable Rohit Crawford Consulting Unavailable Ivan Nugent Admitting Unavailable Ivan Nugent Consulting Unavailable Rocco Fatima Consulting Unavailable Bursley, López Primary Care Unavailable Lety Augustine Admitting Unavailable Lety Augustine Attending Unavailable Edmundo Crabtree Consulting Unavailable Daryl Robetrs Consulting Unavailable Willem Simeon Consulting Unavailable Carlos Melvin Consulting Unavailable Tabatha Mo Consulting Unavailable Saud Rodriguez Consulting Unavailable Iker Shi Consulting Unavailable Angela Bales Consulting Unavailab Jose Diehl Consulting Unavailable Charly Brown Consulting Unavailable Sukhwinder Skinner Consulting Unavailable Jazmyne, Vita Consulting Unavailable Aljundi, Lamia Consulting Unavailable Varner, Serena Consulting Unavailable Raheem, Cem Consulting Unavailable Irukulla, Leonardo Consulting Unavailable Rita, Oli Consulting Unavailable Dhesi, Yunior Consulting Unavailable Marissa, Eugene Consulting Unavailable Hiram, Titayah Consulting Unavailable Fernstrom, Ryan Consulting Unavailable Lai, Praneeth Consulting Unavailable Jose David Soliz Consulting Unavailable Lety Augustine Consulting Unavailable Lety Augustine Referring Unavailable Carlos Melvin Attending Unavailable [facility] Primary [facility] Unavailable Pebbles Kowalski Attending Unavailable Ivan Nugent Attending Unavailable [facility] Primary Care Unavailable Rohit Crawford Attending Unavailable Rohit Crawford Admitting Unavailable Lydia Mauricio Attending Unavailable [facility] Primary Care Unavailable López Lilly Referring Unavailable [facility] Unavailable Rohit Crawford Attending Unavailable Rohit Crawford Referring Unavailable Ivan Nugent Attending Unavailable [facility] Primary Care Unavailable Ivan Nugent Admitting Unavailable Rohit Crawford Consulting Unavailable Lydia Mauricio Attending Unavailable [facility], López Referring Unavailable [facility] Primary Care Unavailable Lydia Mauricio Consulting Unavailable Rocco Fatima Consulting Unavailable [facility] Primary Care Unavailable Lety Augustine Admitting Unavailable Tabatha Ashley Attending Unavailable Edmundo Crabtree Consulting Unavailable Daryl Roberts Consulting Unavailable Willem Simeon Consulting Unavailable Carlos Melvin Consulting Unavailable Tabatha Mo Consulting Unavailable Saud Rodriguez Consulting Unavailable Yuridia, Iker Consulting Unavailable Angela Bales Consulting Unavailab Jose Diehl Consulting Unavailable Charly Brown Consulting Unavailable Sukhwinder Skinner Consulting Unavailable JazmyneVita barraza Consulting Unavailable Aljundi, Lamia Consulting Unavailable Varner, Serena Consulting Unavailable Raheem, Cem Consulting Unavailable Irukulla, Leonardo Consulting Unavailable Rita, Oli Consulting Unavailable Dhesi, Yunior Consulting Unavailable Marissa, Sujoy Consulting Unavailable Hiram, Soleyah Consulting Unavailable Fernstrom, Ryan Consulting Unavailable Lai, Praneeth Consulting Unavailable Jose David Soliz Consulting Unavailable Lety Augustine Consulting Unavailable Vijaya, López Primary Care Unavailable Rohit Crawford Consulting Unavailable Yvette Rohit Attending Unavailable López Lilly Primary Care Unavailable Yvette, Rohit Consulting Unavailable Yvette, Rohit Attending Unavailable Rohit Crawford Admitting Unavailable Gabi, Tabatha Attending Unavailable Tabatha Ashley Consulting Unavailable López Lilly Primary Care Unavailable López Lilly Referring Unavailable Derrek Hopper Attending Unavailable Ivan Nugent Referring Unavailable BASHIR KILLIAN Referring Unavailable ARSALAN LILLY Primary Care Unavailab le DEREJE VILLARREAL Referring Unavailable NIMA, DEREJE Attending Unavailable ARSALAN LILLY Primary Care Unavailab le ARSALAN LILLY Primary Care Unavailab DONNIE Sosa Attending Unavailable SANJEEV ARANDA Referring Unavailable ARSALAN LILLY Primary Care Unavailab le ARSALAN LILLY Primary Care Unavailab VICENTE Gates Attending Unavailable DEREJE VILLARREAL Referring Unavailable ARSALAN LILLY Primary Care Unavailab CATHERINE Mtz Attending Unavailable ARSALAN LILLY Primary Care Unavailab le DEREJE VILLARREAL Referring Unavailable ARSALAN LILLY Primary Care Unavailab DEREJE Pollack Referring Unavailable SANJEEV ARANDA Referring Unavailable TEE ELLIS Attending Unavailable ARSALAN LILLY Primary Care Unavailab le ARSALAN LILLY Primary Care Unavailab le MADELAINE BRONSON Attending Unavailable RICHIE DEJESUS Referring Unavailable ARSALAN LILLY Primary Care Unavailab MADELAINE Sorto Referring Unavailable SURESH HODGES Attending Unavailable ARSALAN LILLY Primary Care Unavailab le ARSALAN LILLY Primary Care Unavailab DORCAS Colon Referring Unavailab CANDACE Levi Attending Unavailable ARSALAN LILLY Primary Care Unavailab SANJEEV Hardy Referring Unavailable DEREJE VILLARREAL Attending Unavailable ARSALAN LILLY Primary Care Unavailab SANJEEV Hardy Referring Unavailable ARSALAN LILLY Primary Care Unavailab DEREJE Pollack Referring Unavailable CANDACE GUERRA Referring Unavailable ARSALAN LILLY Primary Care Unavailab ROXI Greer Referring Unavailable ARSALAN LILLY Primary Care Unavailab SANJEEV Hardy Referring Unavailable BURSLEY, CHRISTOPHER B Primary Care Unavailab le SELF Referring Unavailable VIJAYA, CHRISTOPHER B Primary Care Unavailab LINDEN Cline Attending Unavailable LINDEN MCGUIRE Referring Unavailable ELIAN LILLYER B Primary Care Unavailab DAVIDA Mora Attending Unavailable BASHIR KILLIAN Referring Unavailable BURSLEY, CHRISTOPHER B Primary Care Unavailab le FARIDALEY, CHRISTOPHER B Primary Care Unavailab DEREJE Pollack Referring Unavailable VIJAYA, CHRISTOPHER B Primary Care Unavailab LINDEN Cline Attending Unavailable LINDEN MCGUIRE Referring Unavailable BURSLEY, CHRISTOPHER B Primary Care Unavailab RICHIE Guadalupe Attending Unavailable SANJEEV ARANDA Referring Unavailable FARIDALEY, CHRISTOPHER B Primary Care Unavailab dutch ABRDEREJE GARCIA Referring Unavailable BURSLEY, CHRISTOPHER B Primary Care Unavailab le FARIDALEY, CHRISTOPHER B Primary Care Unavailab TABATHA Guillaume Attending Unavailable NIYAH LILLYOPHER B Referring Unavailab le FARIDALEY, CHRISTOPHER B Primary Care Unavailab LINDEN Cline Attending Unavailable FARIDALEY, CHRISTOPHER B Primary Care Unavailab LINDEN Cline Attending Unavailable LINDEN MCGUIRE Admitting Unavailable SELF Referring Unavailable FARIDALEY, CHRISTOPHER B Primary Care Unavailab le REMIGIO, SANJEEV Referring Unavailable FARIDALEY, CHRISTOPHER B Primary Care Unavailab le FARIDALEY, CHRISTOPHER B Primary Care Unavailab DEREJE Pollack Referring Unavailable DEREJE VILLARREAL Referring Unavailable VIJAYA, CHRISTOPHER B Primary Care Unavailab le FARIDALEY, CHRISTOPHER B Primary Care Unavailab SANJEEV Hardy Referring Unavailable SANJEEV ARANDA Referring Unavailable FARIDALEY, CHRISTOPHER B Primary Care Unavailab SANJEEV Hardy Referring Unavailable BURSLEY, CHRISTOPHER B Primary Care Unavailab MADELAINE Sorto Attending Unavailable MADELAINE BRONSON Referring Unavailable VIJAYA, CHRISTOPHER B Primary Care Unavailab DEREJE Pollack Referring Unavailable FARIDALEY, CHRISTOPHER B Primary Care Unavailab DAVIDA Mora Referring Unavailable VIJAYA, NIYAHOPHER B Primary Care Unavailab DAVIDA Mora Referring Unavailable VIJAYA, ELIANER B Primary Care Unavailab DAVIDA Mora Referring Unavailable ARSALAN LILLY B Attending Unavailab ARSALAN Khan Primary Care Unavailab le ARSALAN LILLY Primary Care Unavailab le ARSALAN LILLY Primary Care Unavailab LINDEN Cline Attending Unavailable CANDACE SHIPMAN Referring Unavailable ARSALAN LILLY Primary Care Unavailab LINDEN Cline Admitting Unavailable LINDEN MCGUIRE Attending Unavailable ARSALAN LILLY Primary Care Unavailab le ARANDA, SANJEEV Referring Unavailable DEREJE VILLARREAL Attending Unavailable ARSALAN LILLY Primary Care Unavailab le ARSALAN LILLY Attending Unavailab ARSALAN Khan Primary Care Unavailab le ARANDA, SANJEEV Referring Unavailable ARSALAN LILLY Primary Care Unavailab le DEREJE VILLARREAL Attending Unavailable SANJEEV ARANDA Referring Unavailable ARSALAN LILLY Primary Care Unavailab le ARSALAN LILLY Primary Care Unavailab le DEREJE VILLARREAL Referring Unavailable ARSALAN LILLY Primary Care Unavailab le REMIGIO, SANJEEV Referring Unavailable ARSALAN LILLY Primary Care Unavailab le REMIGIO, SANJEEV Referring Unavailable ARSALAN LILLY Primary Care Unavailab le DEREJE VILLARREAL Referring Unavailable ARSALAN LILLY Primary Care Unavailab RICHIE Guadalupe Attending Unavailable RICHIE DEJESUS Referring Unavailable ARSALAN LILLY Primary Care Unavailab le REMIGIO, SANJEEV Referring Unavailable ARSALAN LILLY Primary Care Unavailab DEREJE Pollack Referring Unavailable DAVIDA AL Attending Unavailable DAVIDA AL Referring Unavailable ARSALAN LILLY Primary Care Unavailab le ARSALAN LILLY Primary Care Unavailab le REMIGIO, SANJEEV Referring Unavailable ARSALAN LILLY Primary Care Unavailab DEREJE Pollack Referring Unavailable ARSALAN LILLY Attending Unavailab ARSALAN Khan Primary Care Unavailab le ARSALAN LILLY Referring Unavailab le ARSALAN LILLY Primary Care Unavailab le ARSALAN LILLY B Referring Unavailab ELIAN KhanER Ag Primary Care Unavailab NILAY Morrison Attending Unavailable ARSALAN LILLY Primary Care Unavailab le NIMA DEREJE Referring Unavailable ARSALAN LILLY Primary Care Unavailab le Allergies Allergy Classification Reported Allergen(s) Allergy Type Date of Onset Reaction(s) Facility (2 sources) OTHER; Translations: [OTHER] Propensity to adverse reactions (disorder) 11-30-19 [facility] Repository (20 sources) envirornmental [Other] Propensity to adverse reactions 11-30-19 Intolerance [facility] Work Phone: (20 sources) Ragweed pollen; Translations: [RAGWEED POLLEN] Propensity to adverse reactions to drug 06-11-19 Other: See Comments [facility] Work Phone: Medications Current Medications Medication [...] BEFORE OR 2 HOURS AFTER A MEAL amoxicillin 875 mg / clavulanate 125 mg oral tablet (20 sources) Penicillin-class Antibacterial Start: End: take 1 tablet by mouth twice daily amoxicillin-clavul anate potassium (AUGMENTIN) 875-125 mg per tablet Take 1 tablet by mouth two times a day. 60 tablet 12/01/2024 12/31/2024 Active Start: 11-26-2024 End: 12-01-2024 amoxicillin-clavulanate pota ssium 875 mg tab(s) (AUGMENTIN) Start: 10-18-2024 End: 11-26-2024 amoxicillin-clavulanate pota ssium (AUGMENTIN) 875-125 mg per tablet 10/18/2024 11/26/2024 Discontinued Start: 10-18-2024 Amoxicillin-Po t Clavulanate 875-125 mg tablet Active 1 {tbl} PO TWICE A DAY October 18, 2024 12:00am atorvastatin 20 mg oral tablet (20 sources) HMG-CoA Reductase Inhibitor Start: 03-18-2023 End: 03-15-2025 take 1 tablet by mouth once daily at bedtime for hyperlipidemia atorvastatin (LIPITOR) 20 mg tablet Take 1 tablet by mouth daily at bedtime. For cholesterol. 90 tablet 3 03/15/2024 03/15/2025 Active Comment on above: Take 1 tablet by divya th daily at bedtime. For cholesterol. calcium carbonate 1500 mg / cholecalciferol 200 unt oral tablet (2 sources) Vitamin D Start: 10-15-2024 Calcium Carbonate-Vitamin D3 (Calcium 600 + D(3)) 600 mg-5 mcg (200 unit) tablet Active 2 {tbl} PO DAILY October 15, 2024 12:00am calcium take 1 tablet by mouth twice [place] Calcium Carb-Cholecalciferol (Calcium 500 + D) 500-125 MG-UNIT tablet Take 1 tablet by mouth 2 times daily. 0 Active Calcium Carbonate / vitamin D3 (20 sources) take 1 tablet by divya th twice daily calcium carbonate/vitamin D3 (CALCIUM + D ORAL) Take 1 tablet by mouth twice daily. Active take 1 tablet by mouth twice [place] calcium carbonate/vitamin D3 (CALCIUM + D ORAL) Take 1 tablet by mouth twice daily. 0 Active Comment on above: Take 1 tablet by divya th twice daily. cefadroxil 500 mg oral capsule (3 sources) Cephalosporin Antibacterial Start: End: take 1 capsule by mouth twice daily cefADROxil (DURICEF) 500 mg capsule Take 1 capsule by mouth two times a day for 7 days. 14 capsule 12/03/2024 11:56 AM EDT 12/03/2024 12/10/2024 Active Start: 11-03-2024 End: 11-08-2024 take 1 capsule by mouth twice daily cefADROxil (DURICEF) 500 mg capsule Take 1 capsule by mouth two times a day for 5 days. 10 capsule 11/03/2024 10:47 AM EDT 11/03/2024 11/08/2024 Active cimetidine 200 mg oral tablet (20 sources) Histamine-2 Receptor Antagonist Start: 10-15-2024 take 1 tablet by mouth once daily at mealtime Cimetidine (Heartburn Relief (Cimetidine)) 200 mg tablet Active 200 mg PO DAILY October 15, 2024 12:00am administer with meals Start: 02-05-2024 End: 10-15-2024 take 1 tablet by mouth twice daily at mealtime Cimetidine (Tagamet Hb) 200 mg tablet Discontinued 200 mg PO TWICE A DAY February 05, 2024 12:00am October 15, 2024 5:21am administer with meals Comment on above: Take 200 mg by mouth twice daily. darbepoetin dagmar in albumn john (ARANESP INJECTION) (20 sources) darbepoetin dagmar in albumn john (ARANESP INJECTION) by INJECTION(UNSPECIFIED PARENTERAL ROUTES) route every 4 weeks. PRN Active darbepoetin dagmar in albumn john (ARANESP INJECTION) by INJECTION(UNSPECIFIED PARENTERAL ROUTES) route every 4 weeks. PRN 0 Active darbepoetin dagmar in polysorbat (4 sources) Start: 09-18-2024 darbepoetin dagmar in polysorbat [...] 12/05/2023 Active ibuprofen 200 mg oral capsule (20 sources) Nonsteroidal Anti-inflammatory Drug Ibuprofen 200 mg cap Take by mouth every 6 hours as needed. Active iv contrast (will be provided with radiology test) (20 sources) Start: 11-30-2024 inject 1 dose intravenously once iv contrast (will be provided with radiology test) MRI Brain Inject, intravenously, once for 1 [...] MR contrast administration guidelines link 1 each 11/30/2024 Active Start: 09-24-2024 End: 09-25-2024 inject 1 dose intravenously once iv contrast [...] every 6 months. May 05/2022 0 Active oxyCODONE hydrochloride 5 mg oral tablet (9 sources) Opioid Agonist Start: 12-04-19 End: 12-09-19 take 1 tablet by mouth every eight hours as needed for pain oxyCODONE IR (ROXICODONE) 5 mg immediate release tablet Indications: Acute postoperative pain Take 1 tablet by mouth every 8 hours as needed for pain for up to 5 days. 10 tablet 12/03/2024 11:56 AM EDT 12/03/2024 12/08/2024 Active Start: 11-03-2024 End: 11-05-2024 take 1 tablet by mouth every eight hours as needed for pain oxyCODONE IR (ROXICODONE) 5 mg immediate release tablet Indications: Postoperative pain Take 1 tablet by mouth every 8 hours as needed for pain for up to 2 days. 6 tablet 11/03/2024 10:47 AM EDT 11/03/2024 11/05/2024 Active Start: 02-06-2024 End: 02-16-2024 take 1 tablet by mouth every six hours as needed for pain Oxycodone 5 mg Tablet Discontinued 5 mg PO EVERY 6 HOURS NEEDED as needed for Pain Score 6-10 10 3 0 February 06, 2024 February 16, 2024 3:03pm Status post laparoscopic appendectomy Acquired absence of other specified parts of digestive tract petrolatum 0.41 mg/mg topical ointment (3 sources) Start: 12-03-2024 End: 01-02-2025 white petrolatum (AQUAPHOR ORIGINAL) 41 % topical ointment Apply to affected area two times a day. 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 90 capsule 3 12/07/2024 12/07/2025 Active Start: 01-19-2021 End: 12-03-2024 take 1 capsule by mouth once daily tamsulosin (FLOMAX) 0.4 mg Indications: Hypertrophy of prostate with urinary obstruction Take 1 capsule by mouth once daily. 90 capsule 3 11/17/2023 12/03/2024 Discontinued Comment on above: TAKE 1 CAPSULE BY MO UT EVERY DAY Take 1 capsule by mo ut once daily. Take 1 capsule by mo ut daily at bedtime for 90 doses. Completed/Discontinued Medications Medication Drug Class(es) Dates Sig (Normalized) Sig (Original) acetaminophen 500 mg oral tablet (1 source) Start: 11-03-2024 End: 11-03-2024 take 1 dose by mouth once 1,000 mg, ORAL, PRE-OP ONCE, 1 dose, On Fri11/03/24 at 0800, Preprocedure calcium chloride 0.0014 meq/ml / potassium chloride 0.004 meq/ml / sodium chloride 0.103 meq/ml / sodium lactate 0.028 meq/ml injectable solution (1 source) Start: 11-03-2024 End: 11-04-2024 take 75 mL intravenously every hour 75 mL/hr, INTRAVENOUS, CONTINUOUS, Starting on Fri11/03/24 at 1030, Until Fri11/04/24 at 0303 cefdinir 300 mg oral capsule (4 sources) Cephalosporin Antibacterial Start: 09-22-2024 End: 10-15-2024 take 1 capsule by mouth twice daily Cefdinir 300 mg capsule Discontinued 300 mg PO TWICE A DAY 16 0 September 22, 2024 12:00am October 15, 2024 5:21am cyclobenzaprine hydrochloride 10 mg oral tablet (20 sources) Muscle Relaxant Start: 02-03-2024 End: 04-14-2024 take 1 tablet by mouth twice daily as needed for muscle spasms cyclobenzaprine (FLEXERIL) 10 mg tablet Indications: Left inguinal pain Take 1 tablet by mouth two times a day as needed for muscle spasm. 60 tablet 02/03/2024 04/14/2024 Discontinued 0.6 ml darbepoetin dagmar 0.5 mg/ml prefilled syringe (19 sources) Erythropoiesis-sti mulating Agent Start: 12-01-2024 End: 12-01-2024 inject 1 dose by subcutaneous injection once 300 mcg, SUBCUTANEOUS, ONCE, 1 dose, On Fri12/01/24 at 1030, PROTECT FROM LIGHT. REFRIGERATE Start: 11-02-2024 End: 11-02-2024 inject 1 dose by subcutaneous injection once 300 mcg, SUBCUTANEOUS, ONCE, 1 dose, On 11/02/24 at 1000, PROTECT FROM LIGHT. REFRIGERATE Start: 10-15-2024 Darbepoetin Al fa In Polysorbat (Aranesp (In Polysorbate)) 25 mcg/mL solution Active 25 ug SC EVERY MONTH October 15, 2024 12:00am Start: 09-30-2024 End: 09-30-2024 inject 1 dose by subcutaneous injection once 300 mcg, SUBCUTANEOUS, ONCE, 1 dose, On Roseann 09/30/24 at 1630, PROTECT FROM LIGHT. REFRIGERATE Start: 09-08-2024 End: 09-08-2024 inject 1 dose by subcutaneous injection once 300 mcg, SUBCUTANEOUS, ONCE, 1 dose, On 09/08/24 at 1100, PROTECT FROM LIGHT. REFRIGERATE Start: 07-14-2024 End: 07-14-2024 inject 1 dose by subcutaneous injection once 300 mcg, SUBCUTANEOUS, ONCE, 1 dose, On 07/14/24 at 1000, PROTECT FROM LIGHT. REFRIGERATE Start: 06-16-2024 End: 06-16-2024 inject 1 dose by subcutaneous injection once 300 mcg, SUBCUTANEOUS, ONCE, 1 dose, On 06/16/24 at 1030, PROTECT FROM LIGHT. REFRIGERATE Start: 05-12-2024 End: 05-12-2024 inject 1 dose by subcutaneous injection once 300 mcg, SUBCUTANEOUS, ONCE, 1 dose, On 05/12/24 at 1000, PROTECT FROM LIGHT. REFRIGERATE Start: 04-14-2024 End: 04-14-2024 inject 1 dose by subcutaneous injection once 300 mcg, SUBCUTANEOUS, ONCE, 1 dose, On 04/14/24 at 1000, PROTECT FROM LIGHT. REFRIGERATE Start: 03-17-2024 End: 03-17-2024 inject 1 dose by subcutaneous injection once 300 mcg, SUBCUTANEOUS, ONCE, 1 dose, On 03/17/24 at 1000, PROTECT FROM LIGHT. REFRIGERATE Start: 02-18-2024 End: 02-18-2024 inject 1 dose by subcutaneous injection once 300 mcg, SUBCUTANEOUS, ONCE, 1 dose, On 02/18/24 at 1000, PROTECT FROM LIGHT. REFRIGERATE Start: 01-21-2024 End: 01-21-2024 inject 1 dose by subcutaneous injection once 300 mcg, SUBCUTANEOUS, ONCE, 1 dose, On Fri01/21/24 at 0930, PROTECT FROM LIGHT. REFRIGERATE Start: 12-17-2023 End: 12-17-2023 inject 1 dose by subcutaneous injection once 300 mcg, SUBCUTANEOUS, ONCE, 1 dose, On Fri12/17/23 at 0930, PROTECT FROM LIGHT. REFRIGERATE Start: [...] above: Inject subcutaneousl y once every month. diphenhydrAMINE (1 source) Histamine-1 Receptor Antagonist Start: 2024 End: 2024 take 12.5 mg intravenously every four hours as needed 12.5 mg, INTRAVENOUS, EVERY 4 HOURS NEEDED, 1 dose, Starting on Fri11/03/24 at 1025, Until Fri11/04/24 at 0303, Nausea/Vomiting - Second Line - Parenteral, Recovery or Phase I (only) 1 ml fentaNYL 0.05 mg/ml injection (1 source) Opioid Agonist Start: 2024 End: 2024 50 mcg, INTRAVENOUS, POST-OP PRN, 1 dose, Starting on Fri11/03/24 at 1025, Until Roseann 11/04/24 at 0303, Moderate Pain (4-6) - Parenteral, FIRST LINE THERAPY Every 10 minutes, To a Maximum Total Dose of 200 mcg Hold for respiratory rate less than 14 USE FOR MODERATE PAIN ONLY IF PATIENT IS UNABLE TO TOLERATE ORAL THERAPY, Recovery or Phase I (only) fluocinonide 0.5 mg/ml topical cream (12 sources) [...] sources) Gonadotropin Releasing Hormone Receptor Agonist Start: 2024 End: 2024 inject 1 dose by subcutaneous injection once [...] Inject subcutaneousl y once every 6 months. 2 ml ondansetron 2 mg/ml injection (1 source) Serotonin-3 Receptor Antagonist Start: 11-04-19 End: 11-05-19 4 mg, INTRAVENOUS, POST-OP PRN, 1 dose, Starting on Fri11/03/24 at 1025, Until Fri11/04/24 at 0303, Nausea/Vomiting - First Line - Parenteral, Give IV push over 2 minutes, Recovery or Phase I (only) promethazine hydrochloride 12.5 mg oral tablet (1 source) Phenothiazine Start: 11-04-19 End: 11-04-19 take 1 dose by mouth once 12.5 mg, ORAL, PRE-OP ONCE, 1 dose, On Fri11/03/24 at 0800, Preprocedure Problems Active Problems Problem Classification Problem Date Documented Date Episodic/Chronic Anal and rectal conditions (1 source) Disorder of large intestine; Translations: [Other specified diseases of anus and rectum] 11-19-2022 Episodic Biliary tract disease (7 sources) Cholangitis; Translations: [Other cholangitis] Onset: 5 09-28-2024 Chronic Cancer of prostate (20 sources) Prostate cancer metastatic to bone; Translations: [Malignant neoplasm of prostate] Onset: 2 Chronic Cancer of prostate (20 sources) History of malignant neoplasm of prostate; Translations: [Personal history of malignant neoplasm of prostate] Onset: 5 02-05-2024 Episodic Coagulation and hemorrhagic disorders (2 sources) Thrombocytopenic disorder; Translations: [Thrombocytopenia, unspecified] Onset: 5 10-22-2024 Chronic Coagulation and hemorrhagic disorders (1 source) Senile purpura; Translations: [Other nonthrombocytopenic purpura] 11-27-2022 Episodic Deficiency and other anemia (1 source) Anemia in neoplastic disease; Translations: [Anemia in neoplastic disease] 10-28-2024 Chronic Deficiency and other anemia (6 sources) Anemia; Translations: [Anemia, unspecified] 02-06-2024 Episodic Disorders of lipid metabolism (20 sources) Mixed hyperlipidemia; Translations: [Mixed hyperlipidemia] Onset: 4 03-18-2023 Chronic Esophageal disorders (20 sources) Gastro-esophageal reflux disease with esophagitis; Translations: [Gastroesophageal reflux disease with esophagitis] Onset: 7 10-09-2016 Chronic Essential hypertension (2 sources) Essential hypertension; Translations: [Essential (primary) hypertension] 10-28-2024 Chronic Fever of unknown origin (4 sources) Fever; Translations: [Fever, unspecified] 10-15-2024 Episodic Gastritis and duodenitis (1 source) Chronic superficial gastritis; Translations: [Chronic superficial gastritis without bleeding] Chronic Genitourinary symptoms and ill-defined conditions (13 sources) Increased frequency of urination; Translations: [Frequency of micturition] Onset: 5 10-22-2024 Episodic Hyperplasia of prostate (20 sources) Benign prostatic hypertrophy with outflow obstruction; Translations: [Benign prostatic hyperplasia with lower urinary tract symptoms] Onset: 7 Resolved: 7 01-03-2017 Chronic Immunizations and screening for infectious disease (1 source) Encounter for immunization; Translations: [Encounter for immunization] Onset: 5 Episodic Malaise and fatigue (1 source) Weakness; Translations: [Weakness] Onset: 5 Episodic Nausea and vomiting (5 sources) Nausea and vomiting; Translations: [Nausea with vomiting, unspecified] 02-14-2024 Episodic Nonspecific chest pain (6 sources) Chest pain; Translations: [Chest pain, unspecified] Onset: 4 06-11-2023 Episodic Nutritional deficiencies (2 sources) Vitamin D deficiency; Translations: [Vitamin D deficiency, unspecified] Onset: 5 08-09-2024 Chronic Other aftercare (1 source) Wound ; Translations: [Encounter for other specified surgical aftercare] 09-22-2024 Episodic Other aftercare (2 sources) Surgical follow-up; Translations: [Encounter for follow-up examination after completed treatment for conditions other than malignant neoplasm] 11-26-2024 Episodic Other aftercare (1 source) Encounter for follow-up examination after completed treatment for conditions other than malignant neoplasm; Translations: [Surgical followup visit] Onset: 5 Episodic Other and unspecified benign neoplasm (3 sources) Senile angioma; Translations: [Hemangioma of skin and subcutaneous tissue] Episodic Other and unspecified benign neoplasm (3 sources) Multiple benign melanocytic nevi ; Translations: [Melanocytic nevi, unspecified] Episodic Other and unspecified benign neoplasm (1 source) History of polyp of colon; Translations: [Personal history of colonic polyps] 02-27-2022 Episodic Other and unspecified benign neoplasm (1 source) Melanocytic nevi, unspecified; Translations: [Multiple benign nevi] Onset: Episodic Other and unspecified benign neoplasm (1 source) Hemangioma of skin and subcutaneous tissue; Translations: [Cabrera angioma] Onset: Episodic Other circulatory disease (11 sources) Low blood pressure; Translations: [Hypotension, unspecified] 09-18-2024 Episodic Other circulatory disease (20 sources) Carotid bruit; Translations: [Other specified symptoms and signs involving the circulatory and respiratory systems] Onset: 5 10-28-2024 Episodic Other circulatory disease (1 source) Hypotension, unspecified; Translations: [Hypotension, unspecified] Onset: Episodic Other hematologic conditions (1 source) History of anemia; Translations: [Personal history of diseases of the blood and blood-forming organs and certain disorders involving the immune mechanism] 02-27-2022 Episodic Other infections; including parasitic (1 source) Personal history of other infectious and parasitic diseases; Translations: [Personal history of sepsis] Onset: Episodic Other inflammatory condition of skin (1 source) Pruritus, unspecified; Translations: [Itching] Onset: 5 Episodic Other injuries and conditions due to external causes (2 sources) Motion sickness; Translations: [Motion sickness, initial encounter] 05-18-2024 Episodic Other injuries and conditions due to external causes (4 sources) Systemic inflammatory response syndrome; Translations: [Systemic inflammatory response syndrome (SIRS) of non-infectious origin without acute organ dysfunction] 10-15-2024 Episodic Other liver diseases (4 sources) Scleral icterus; Translations: [Unspecified jaundice] 10-15-2024 Episodic Other lower respiratory disease (7 sources) Dyspnea; Translations: [Shortness of breath] 06-11-2023 Episodic Other nervous system disorders (1 source) Notalgia paresthetica; Translations: [Paresthesia of skin] Episodic Other nervous system disorders (1 source) Postoperative pain ; Translations: [Other acute postprocedural pain] 11-03-2024 Episodic Other nervous system disorders (1 source) Other acute postprocedural pain; Translations: [Acute postoperative pain] Onset: 5 Episodic Other non-epithelial cancer of skin (17 sources) History of malignant neoplasm of skin; Translations: [Personal history of other malignant neoplasm of skin] Onset: 5 Episodic Other nutritional; endocrine; and metabolic disorders (1 source) Hypophosphatemia; Translations: [Other disorders of phosphorus metabolism] 10-22-2024 Chronic Other nutritional; endocrine; and metabolic disorders (1 source) Other disorders of phosphorus metabolism; Translations: [Hypophosphatemia] Onset: 5 Chronic Other screening for suspected conditions (not mental disorders or infectious disease) (20 sources) Raised prostate specific antigen; Translations: [Elevated prostate specific antigen [PSA]] Onset: 7 01-03-2017 Episodic Other skin disorders (3 sources) Seborrheic keratosis; Translations: [Other seborrheic keratosis] Episodic Other skin disorders (3 sources) Lentiginosis; Translations: [Other melanin hyperpigmentation] Episodic Other skin disorders (1 source) Xerosis cutis; Translations: [Dry skin dermatitis] Onset: 5 Episodic Other upper respiratory disease (20 sources) Allergic rhinitis; Translations: [Allergic rhinitis, unspecified] 11-29-2005 Chronic Pulmonary heart disease (2 sources) Pulmonary hypertension; Translations: [Pulmonary hypertension, unspecified] Onset: 5 10-22-2024 Chronic Residual codes; unclassified (6 sources) History of squamous cell carcinoma in situ; Translations: [Other specified postprocedural states] 10-14-2024 Episodic Residual codes; unclassified (1 source) Bilateral lower limb edema; Translations: [Localized edema] 10-22-2024 Episodic Residual codes; unclassified (1 source) Other specified postprocedural states; Translations: [Other specified postprocedural states] Onset: 5 Episodic Secondary malignancies (20 sources) Secondary malignant neoplasm of bone; Translations: [Secondary malignant neoplasm of bone] Onset: 2 Chronic Secondary malignancies (3 sources) Secondary malignant neoplasm of bone; Translations: [Bone metastasis (HCC)] Onset: 2 Chronic Spondylosis; intervertebral disc disorders; other back problems (20 sources) Degeneration of lumbar intervertebral disc; Translations: [Other intervertebral disc degeneration, lumbar region] Onset: 4 Resolved: 6 07-13-2013 Chronic Unclassified (1 source) Unknown / UNK(Unknown) Onset: 7 Unclassified (4 sources) Unless you prefer a [facility] physician Unclassified (1 source) Preprocedural examination done 10-28-2024 Unclassified (6 sources) Autogenerated Problem Onset: 5 11-16-2024 Unclassified (1 source) 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; Translations: [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] Onset: 5 Unclassified (1 source) Established Patient Onset: 5 Past or Other Problems Problem Classification Problem Date Documented Date Episodic/Chronic Abdominal pain (12 sources) Epigastric pain; Translations: [Epigastric pain] Onset: 02-03-2024 02-27-2022 Episodic Acute and unspecified renal failure (11 sources) Acute renal failure syndrome; Translations: [Acute kidney failure, unspecified] Onset: 10-05-2024 09-18-2024 Episodic Allergic reactions (20 sources) Solar degeneration; Translations: [Other skin changes due to chronic exposure to nonionizing radiation] Onset: 09-30-2012 Resolved: 07-18-2016 09-30-2012 Episodic Appendicitis and other appendiceal conditions (6 sources) Acute appendicitis; Translations: [Unspecified acute appendicitis] Onset: 02-26-2024 02-14-2024 Episodic Bacterial infection; unspecified site (4 sources) Streptococcal infectious disease; Translations: [Streptococcal infection, unspecified site] Onset: 10-22-2024 10-22-2024 Episodic Biliary tract disease (9 sources) Acute cholecystitis without calculus; Translations: [Acute cholecystitis] Onset: 10-05-2024 09-21-2024 Episodic Complications of surgical procedures or medical care (18 sources) Non-healing surgical wound; Translations: [Other complications of procedures, not elsewhere classified, subsequent encounter] Onset: 10-12-2024 09-22-2024 Episodic Conditions associated with dizziness or vertigo (1 source) Dizziness and giddiness; Translations: [Dizziness and giddiness] Onset: 10-07-2024 Episodic Deficiency and other anemia (20 sources) Microcytic anemia; Translations: [Iron deficiency anemia, unspecified] Onset: 03-10-2008 12-07-2020 Episodic Deficiency and other anemia (3 sources) Anemia, unspecified; Translations: [Anemia, unspecified] Onset: 02-10-2024 Episodic Fluid and electrolyte disorders (7 sources) Dehydration; Translations: [Dehydration] Onset: 10-22-2024 09-18-2024 Episodic Gastritis and duodenitis (20 sources) Acute [...] sideroblasts, so stated] Onset: 12-07-2020 12-07-2020 Episodic Nutritional deficiencies (2 sources) Iron deficiency; Translations: [Iron deficiency] Onset: 08-09-2024 08-09-2024 Episodic Open wounds of head; neck; and trunk (10 sources) Open wound of scalp ; Translations: [Unspecified open wound of scalp, initial encounter] Onset: 10-12-2024 10-12-2024 Episodic Other and unspecified benign neoplasm (20 sources) Benign neoplasm of rectum and anal canal; Translations: [Benign neoplasm of rectum] Onset: 03-06-2012 03-06-2012 Episodic Other circulatory disease (1 source) Other specified symptoms and signs involving the circulatory and respiratory systems; Translations: [Bruit of right carotid artery] Onset: 10-28-2024 Episodic Other connective tissue disease (20 sources) [...] seborrheic dermatitis] Onset: 11-27-2012 11-27-2012 Episodic Other lower respiratory disease (2 sources) Shortness of breath; Translations: [SOB (shortness of breath)] Onset: 06-17-2023 Episodic Other non-traumatic joint disorders (20 sources) Chronic pain of right upper limb; Translations: [Pain in right shoulder] Onset: 10-09-2016 10-09-2016 Episodic Other non-traumatic joint disorders (20 sources) Hip pain; Translations: [Pain in left hip] Onset: 01-29-2024 Resolved: 05-12-2024 12-24-2023 Episodic Other non-traumatic joint disorders (1 source) Pain in left hip; Translations: [Left hip pain] Onset: 01-29-2024 Episodic Other non-traumatic joint disorders (1 source) [...] cutis] Onset: 06-24-2013 Resolved: 07-18-2016 07-18-2016 Episodic Other skin disorders (1 source) Other melanin hyperpigmentation; Translations: [Solar lentigo] Onset: 09-30-2012 Episodic Other skin disorders (1 source) Actinic keratosis; Translations: [Actinic keratosis] Onset: 12-28-2012 Episodic Residual codes; unclassified (20 sources) Family [...] organs] Onset: 03-06-2012 Resolved: 10-09-2016 10-09-2016 Episodic Residual codes; unclassified (6 sources) Acquired absence of other specified parts of digestive tract; Translations: [Status post laparoscopic appendectomy] Onset: 02-10-2024 02-06-2024 Episodic Residual codes; unclassified (1 source) Localized edema; Translations: [Bilateral lower extremity edema] Onset: 10-22-2024 Episodic Screening and history of mental health and substance abuse codes (3 sources) Patient encounter status; Translations: [Encounter for screening for depression] Onset: 03-10-2024 03-10-2024 Episodic Septicemia (except in labor) (20 sources) Sepsis; Translations: [Sepsis, unspecified organism] Onset: 10-22-2024 09-18-2024 Episodic Shock (4 sources) Septic shock; Translations: [Severe sepsis with septic shock] Onset: 10-22-2024 10-22-2024 Episodic Spondylosis; intervertebral disc disorders; other back [...] Reference Range Facility Basic metabolic 2000 panelon 01-26-2025 Anion gap [Moles/Vol] 10 mmol/L Normal 8-[address] [facility] Comment on above: Order Comment: Speci men Type: BLOOD SPECIMENOrdering Facility: [facility] Address: [address] [place] [address] Performed By: #### 2 4321-2 ####[facility] [id number] [place] [address] [place] Calcium [Mass/Vol] 10.1 mg/dL Normal 8.5-10.2 [facility] Comment on above: Order Comment: Speci men Type: BLOOD SPECIMENOrdering Facility: [facility] Address: [address] [place], [place] [id number] Performed By: #### 2 4321-2 ####[facility] SMILEY MILLTOWNCLIA [id number] [place] [address] [place] Chloride [Moles/Vol] 101 mmol/L Normal 98-107 [facility] Comment on above: Order Comment: Speci men Type: BLOOD SPECIMENOrdering Facility: [facility] Address: [address] [place] [address] Performed By: #### 2 4321-2 ####[facility] VIKTORWNCKATERINA [id number] [place] [address] [place] CO2 [Moles/Vol] 24 mmol/L Normal 22-30 [facility] Comment on above: Order Comment: Speci men Type: BLOOD SPECIMENOrdering Facility: [facility] Address: [address] [place] [address] Performed By: #### 2 4321-2 ####[facility] BEACHESNCA [id number] [place] [address] [place] Creatinine [Mass/Vol] 1.22 mg/dL Normal 0.73-1.[address] [facility] Comment on above: Order Comment: Speci men Type: BLOOD SPECIMENOrdering Facility: [facility] Address: [address] [place] [address] Performed By: #### 2 4321-2 ####[facility] BEACHESNCLIA [id number] [place] [address] [place] eGFRcr SerPlBld CKD-EPI 2020 63 mL/min/1.73m??? Normal >=60 [facility] Comment on above: Order Comment: Speci men Type: BLOOD SPECIMENOrdering Facility: [facility] Address: [address] [place] [address] Result Comment: Beth mated Glomerular Filtration Rate [...] actual GFR. Performed By: #### 2 4321-2 ####[facility] HOSPITALALOMERE [facility] HOSPITALLIA [id number] [place] [address] [place] Glucose [Mass/Vol] 115 mg/dL High 74-99 [facility] Comment on above: Order Comment: Speci men Type: BLOOD SPECIMENOrdering Facility: [facility] Address: [address] [place] [address] Result Comment: The [place] [employer] Association (ADA) provides guidance for cutoff [...] Standards of Medical Care in Diabetes 2016, [place] [employer]. Diabetes Care. 2016.39(Suppl 1). Performed By: #### 2 4321-2 ####[facility] [id number] [place] [address] [place] Potassium [Moles/Vol] 3.8 mmol/L Normal 3.7-5.[address] [facility] Comment on above: Order Comment: Speci men Type: BLOOD SPECIMENOrdering Facility: [facility] Address: [address] [place] [address] Performed By: #### 2 4321-2 ####[facility] HOSPITALWNCLIA [id number] [place] [address] [place] Sodium [Moles/Vol] 135 mmol/L Low 136-144 [facility] Comment on above: Order Comment: Speci men Type: BLOOD SPECIMENOrdering Facility: [facility] Address: [address] [place] [address] Performed By: #### 2 4321-2 ####[facility] BEACHESNCLIA [id number] [place] [address] [place] Urea nitrogen [Mass/Vol] 28 mg/dL High 9-24 [facility] Comment on above: Order Comment: Speci men Type: BLOOD SPECIMENOrdering Facility: [facility] Address: [address] [place] [address] Performed By: #### 2 4321-2 ####[facility] BEACHESHEAVENA [id number] [place] [address] [place] CBC W Auto Differential pane l (Bld)on 01-26-2025 Basophils (Bld) [#/Vol] 10*3/uL Normal <0.11 [facility] Comment on above: Order Comment: Speci men Type: BLOOD SPECIMENOrdering Facility: [facility] Address: [address] [place] [address] Performed By: #### 5 7021-8 ####[facility] BEACHESANGELICAA [id number] [place] [address] [place] Basophils/100 WBC (Bld) 0.1 % Normal [facility] Comment on above: Order Comment: Speci men Type: BLOOD SPECIMENOrdering Facility: [facility] Address: [address] [place] [address] Performed By: #### 5 7021-8 ####[facility] BEACHESHEAVENA [id number] [place] [address] [place] Differential cell count method Nom (Bld) Auto Normal [facility] Comment on above: Order Comment: Speci men Type: BLOOD SPECIMENOrdering Facility: [facility] Address: [address] [place] [address] Performed By: #### 5 7021-8 ####[facility] BEACHESNCLIA [id number] [place] [address] [place] Eosinophils (Bld) [#/Vol] 0.22 10*3/uL Normal <0.46 [facility] Comment on above: Order Comment: Speci men Type: BLOOD SPECIMENOrdering Facility: [facility] Address: [address] [place] [address] Performed By: #### 5 7021-8 ####[facility] ANDREW [id number] [place] [address] [place] Eosinophils/100 WBC (Bld) 2.4 % Normal [facility] Comment on above: Order Comment: Speci men Type: BLOOD SPECIMENOrdering Facility: [facility] Address: [address] [place] [address] Performed By: #### 5 7021-8 ####[facility] BIENVENIDOQUIMBYNCMJ [id number] [place] [address] [place] Erythrocyte distribution width (RBC) [Ratio] 19.9 % High 11.5-15.0 [facility] Comment on above: Order Comment: Speci men Type: BLOOD SPECIMENOrdering Facility: [facility] Address: [address] [place] [address] Performed By: #### 5 7021-8 ####[facility] BIENVENIDOQUIMBYNCMJ [id number] [place] [address] [place] Hematocrit (Bld) [Volume fraction] 31.2 % Low 39.0-51.0 [facility] Comment on above: Order Comment: Speci men Type: BLOOD SPECIMENOrdering Facility: [facility] Address: [address] [place] [address] Performed By: #### 5 7021-8 ####[facility] [id number] [place] [address] [place] Hemoglobin (Bld) [Mass/Vol] 9.4 g/dL Low 13.0-17.0 [facility] Comment on above: Order Comment: Speci men Type: BLOOD SPECIMENOrdering Facility: [facility] Address: [address] [place] [address] Performed By: #### 5 7021-8 ####[facility] MILLWNCLIA [id number] [place] [address] [place] Immature granulocytes (Bld) [#/Vol] 0.05 10*3/uL Normal <0.10 [facility] Comment on above: Order Comment: Speci men Type: BLOOD SPECIMENOrdering Facility: [facility] Address: [address] [place] [address] Performed By: #### 5 7021-8 ####[facility] [id number] [place] [address] [place] Immature granulocytes/100 WBC (Bld) 0.5 % Normal [facility] Comment on above: Order Comment: Speci men Type: BLOOD SPECIMENOrdering Facility: [facility] Address: [address] [place] [address] Performed By: #### 5 7021-8 ####[facility] [id number] [place] [address] [place] Lymphocytes (Bld) [#/Vol] 2.04 10*3/uL Normal 1.00-4.00 [facility] Comment on above: Order Comment: Speci men Type: BLOOD SPECIMENOrdering Facility: [facility] Address: [address] [place] [address] Performed By: #### 5 7021-8 ####[facility] HOSPITALWNCLIA [id number] [place] [address] [place] Lymphocytes/100 WBC (Bld) 22.3 % Normal [facility] Comment on above: Order Comment: Speci men Type: BLOOD SPECIMENOrdering Facility: [facility] Address: [address] [place] [address] Performed By: #### 5 7021-8 ####[facility] BEACHESNCLIA [id number] [place] [address] [place] MCH (RBC) [Entitic mass] 23.9 pg Low 26.0-34.0 [facility] Comment on above: Order Comment: Speci men Type: BLOOD SPECIMENOrdering Facility: [facility] Address: [address] [place] [address] Performed By: #### 5 7021-8 ####[facility] BEACHESNCMJ [id number] [place] [address] [place] MCHC (RBC) [Mass/Vol] 30.1 g/dL Low 30.5-36.[address] [facility] Comment on above: Order Comment: Speci men Type: BLOOD SPECIMENOrdering Facility: [facility] Address: [address] [place] [address] Performed By: #### 5 7021-8 ####[facility]ESNCC[facility] [id number] [place] [address] [place] MCV (RBC) [Entitic vol] 79.2 fL Low 80.0-100.0 [facility] Comment on above: Order Comment: Speci men Type: BLOOD SPECIMENOrdering Facility: [facility] Address: [address] [place] [address] Performed By: #### 5 7021-8 ####[facility] [id number] [place] [address] [place] Monocytes (Bld) [#/Vol] 0.47 10*3/uL Normal <0.87 [facility] Comment on above: Order Comment: Speci men Type: BLOOD SPECIMENOrdering Facility: [facility] Address: [address] [place] [address] Performed By: #### 5 7021-8 ####[facility] BEACHESNCLIA [id number] [place] [address] [place] Monocytes/100 WBC (Bld) 5.1 % Normal [facility] Comment on above: Order Comment: Speci men Type: BLOOD SPECIMENOrdering Facility: [facility] Address: [address] [place] [address] Performed By: #### 5 7021-8 ####[facility] PITOLIA [id number] [place] [address] [place] Neutrophils (Bld) [#/Vol] 6.35 10*3/uL Normal 1.45-7.50 [facility] Comment on above: Order Comment: Speci men Type: BLOOD SPECIMENOrdering Facility: [facility] Address: [address] [place] [address] Performed By: #### 5 7021-8 ####[facility] BEACHESANGELICALIA [id number] [place] [address] [place] Neutrophils/100 WBC (Bld) 69.6 % Normal [facility] Comment on above: Order Comment: Speci men Type: BLOOD SPECIMENOrdering Facility: [facility] Address: [address] [place] [address] Performed By: #### 5 7021-8 ####[facility] [id number] [place] [address] [place] Nucleated RBC (Bld) [#/Vol] 10*3/uL Normal <0.01 [facility] Comment on above: Order Comment: Speci men Type: BLOOD SPECIMENOrdering Facility: [facility] Address: [address] [place] [address] Performed By: #### 5 7021-8 ####[facility] [id number] [place] [address] [place] Nucleated RBC/100 WBC (Bld) [Ratio] 0.0 /100 WBC Normal [facility] Comment on above: Order Comment: Speci men Type: BLOOD SPECIMENOrdering Facility: [facility] Address: [address] [place] [address] Performed By: #### 5 7021-8 ####[facility] MILLCAESARWNCLIA [id number] [place] [address] [place] Platelet mean volume (Bld) [Entitic vol] 8.4 fL Low 9.0-12.7 [facility] Comment on above: Order Comment: Speci men Type: BLOOD SPECIMENOrdering Facility: [facility] Address: [address] [place] [address] Performed By: #### 5 7021-8 ####[facility]NCL[facility] [id number] [place] [address] [place] Platelets (Bld) [#/Vol] 198 10*3/uL Normal 150-400 [facility] Comment on above: Order Comment: Speci men Type: BLOOD SPECIMENOrdering Facility: [facility] Address: [address] [place] [address] Performed By: #### 5 7021-8 ####[facility] BEACHESNCLIA [id number] [place] [address] [place] RBC (Bld) [#/Vol] 3.94 10*6/uL Low 4.20-6.00 [facility] Comment on above: Order Comment: Speci men Type: BLOOD SPECIMENOrdering Facility: [facility] Address: [address] [place] [address] Performed By: #### 5 7021-8 ####[facility] BEACHESNCLIA [id number] [place] [address] [place] WBC (Bld) [#/Vol] 9.14 10*3/uL Normal 3.70-11.00 [facility] Comment on above: Order Comment: Speci men Type: BLOOD SPECIMENOrdering Facility: [facility] Address: [address] [place] [address] Performed By: #### 5 7021-8 ####[facility] BEACHESNCLIA [id number] [place] [address] [place] CNOVSPon 01-26-2025 CNOVSP Normal [facility] CNPNon 01-26-2025 CNPN Normal [facility] LIPID PANEL, NONFASTINGon Cholesterol [Mass/Vol] 164 mg/dL Normal <200 [facility] Comment on above: Order Comment: Bassam hong Type: BLOOD SPECIMENOrdering Facility: [facility] Address: [address] [place] [address] Result Comment: <200 mg/dL, Desirable 200-239 mg/dL, Borderline high>239 mg/dL, High Performed By: #### L IPNF ####[facility] LABCLIA [id number] [place] [address] [place] HDL CHOLESTEROL, NF 83 mg/dL Normal >39 [facility] Comment on above: Order Comment: Bassam hong Type: BLOOD SPECIMENOrdering Facility: [facility] Address: [address] [place] [address] Result Comment: 40-5 9 mg/dL, Acceptable>59 mg/dL, High: Negative risk factor for coronary heart disease<40 mg/dL, Low: Positive risk factor for coronary heart disease Performed By: #### L IPNF ####[facility] LABCLIA [id number] [place] [address] [place] LDL CHOLESTEROL CALCULATED, NF 58 mg/dL Normal <100 [facility] Comment on above: Order Comment: Bassam hong Type: BLOOD SPECIMENOrdering Facility: [facility] Address: [address] [place] [address] Result Comment: <100 mg/dL, Optimal 100-129 mg/dL, Near optimal/above optimal 130-159 mg/dL, Borderline high 160-189 mg/dL, High>189 mg/dL, Very highSecondary prevention optimal LDL Cholesterol levels are recommended to be <70 mg/dLLDL cholesterol is calculated using the Jolly-NIH equation. Performed By: #### L IPNF ####[facility] LABCLIA [id number] [address] [place] LDL/HDL RATIO, NF 0.70 mg/dL Normal <2.54 [facility] Comment on above: Order Comment: Speci men Type: BLOOD SPECIMENOrdering Facility: [facility] Address: [address] [place] [address] Result Comment: Abner sargent:1. National Cholesterol Education Program ATP III Guideline At-A-Glance Quick Desk Reference: National Heart, Lung, and Blood Haines. National Institutes of Health. 2001: NIH Publication No. 01-3305.2. An International Atherosclerosis Society position paper: global recommendations for the management of dyslipidemia: executive summary, Atherosclerosis. 2014: 232(2):410-413. Performed By: #### L IPNF ####[facility] LABCLIA [id number] [address] [place] NON HDL CHOL, NF 81 mg/dL Normal <130 [facility] Comment on above: Order Comment: Speci men Type: BLOOD SPECIMENOrdering Facility: [facility] Address: [address] [place] [address] Result Comment: <130 mg/dL, Optimal 130-159 mg/dL, Near optimal/above optimal 160-189 mg/dL, Borderline high 190-219 mg/dL, High>219 mg/dL, Very highSecondary prevention optimal non HDL Cholesterol levels are recommended to be <100 mg/dL Performed By: #### L IPNF ####[facility] LABCLIA [id number] [place] [address] [place] T CHOL/HDL RATIO NF 1.98 mg/dL Normal <5.10 [facility] Comment on above: Order Comment: Speci men Type: BLOOD SPECIMENOrdering Facility: [facility] Address: [address] [place] [address] Performed By: #### L IPNF ####[facility] LABCLIA [id number] [place] [address] [place] TRIGLYCERIDES, NF 140 mg/dL Normal <150 [facility] Comment on above: Order Comment: Speci men Type: BLOOD SPECIMENOrdering Facility: [facility] Address: [address] [place] [address] Result Comment: <150 mg/dL, Normal 150-199 mg/dL, Borderline high 200-499 mg/dL, High>499 mg/dL, Very high Performed By: #### L IPNF ####[facility] LABCLIA [id number] [place] [address] [place] VLDL CHOLESTEROL, NF 20 mg/dL Normal <30 [facility] Comment on above: Order Comment: Speci men Type: BLOOD SPECIMENOrdering Facility: [facility] Address: [address] [place] [address] Performed By: #### L IPNF ####[facility] LABCLIA [id number] [place] [address] [place] PSA SerPl-mCncon 01-26-2025 Prostate specific Ag [Mass/Vol] ng/mL Normal <2.60 [facility] Comment on above: Order Comment: Speci men Type: BLOOD SPECIMENOrdering Facility: [facility] Address: [address] [place] [address] Result Comment: Erika rangel PSA test methodology used is the Electrochemiluminescence Immunoassay by [employer]. Total PSA values by differing methodologies cannot be interchanged. Performed By: #### 2 857-1 ####[facility] LABCLIA [id number] [place] [address] [place] CNOVon 01-21-2025 CNOV Normal [facility] CNOVon 01-14-2025 CNOV Normal [facility] Basic metabolic 2000 panelon 12-29-2024 Anion gap [Moles/Vol] 10 mmol/L Normal 8-[address] [facility] Comment on above: Order Comment: Speci men Type: BLOOD SPECIMENOrdering Facility: [facility] Address: [address] [place] [address] Performed By: #### 2 4321-2 ####[facility] SMILEYSUMMA [facility] [id number] [place] [address] [place] Calcium [Mass/Vol] 9.2 mg/dL Normal 8.5-10.2 [facility] Comment on above: Order Comment: Speci men Type: BLOOD SPECIMENOrdering Facility: [facility] Address: [address] [place] [address] Performed By: #### 2 4321-2 ####[facility] MILLTOWNCLIA [id number] [place] [address] [place] Chloride [Moles/Vol] 103 mmol/L Normal 98-107 [facility] Comment on above: Order Comment: Speci men Type: BLOOD SPECIMENOrdering Facility: [facility] Address: [address] [place] [address] Performed By: #### 2 4321-2 ####[facility] HOSPITALWKYLIA [id number] [place] [address] [place] CO2 [Moles/Vol] 24 mmol/L Normal 22-30 [facility] Comment on above: Order Comment: Speci men Type: BLOOD SPECIMENOrdering Facility: [facility] Address: [address] [place] [address] Performed By: #### 2 4321-2 ####[facility] MILLWNCLIA [id number] [place] [address] [place] Creatinine [Mass/Vol] 0.96 mg/dL Normal 0.73-1.[address] [facility] Comment on above: Order Comment: Speci men Type: BLOOD SPECIMENOrdering Facility: [facility] Address: [address] [place] [address] Performed By: #### 2 4321-2 ####[facility]IA [id number] [place] [address] [place] eGFRcr SerPlBld CKD-EPI 2020 85 mL/min/1.73m??? Normal >=60 [facility] Comment on above: Order Comment: Speci men Type: BLOOD SPECIMENOrdering Facility: [facility] Address: [address] [id number] Result Comment: Beth mated Glomerular Filtration Rate [...] actual GFR. Performed By: #### 2 4321-2 ####[facility] [id number] [place] [address] [place] Glucose [Mass/Vol] 96 mg/dL Normal 74-99 [facility] Comment on above: Order Comment: Bassam hong Type: BLOOD SPECIMENOrdering Facility: [facility] Address: [address] [place] [address] Result Comment: The [place] Diabetes Association (ADA) provides guidance for cutoff [...] Standards of Medical Care in Diabetes 2016, [place] Diabetes Association. Diabetes Care. 2016.39(Suppl 1). Performed By: #### 2 4321-2 ####[facility] [id number] [place] [address] [place] Potassium [Moles/Vol] 4.0 mmol/L Normal 3.7-5.[address] [facility] Comment on above: Order Comment: Bassam hong Type: BLOOD SPECIMENOrdering Facility: [facility] Address: [address] [id number] Performed By: #### 2 4321-2 ####[facility] MILLWNCLIA [id number] [place] [address] [place] Sodium [Moles/Vol] 137 mmol/L Normal 136-144 [facility] Comment on above: Order Comment: Speci men Type: BLOOD SPECIMENOrdering Facility: [facility] Address: [address] [place] [address] Performed By: #### 2 4321-2 ####[facility] HOSPITALWNCLIA [id number] [place] [address] [place] Urea nitrogen [Mass/Vol] 26 mg/dL High 12-29 [facility] Comment on above: Order Comment: Speci men Type: BLOOD SPECIMENOrdering Facility: [facility] Address: [address] [place] [address] Performed By: #### 2 4321-2 ####[facility] BEACHESANGELICALIA [id number] [place] [address] [place] CBC W Auto Differential pane l (Bld)on 12-29-2024 Basophils (Bld) [#/Vol] 10*3/uL Normal <0.11 [facility] Comment on above: Order Comment: Speci men Type: BLOOD SPECIMENOrdering Facility: [facility] Address: [address] [place] [address] Performed By: #### 5 7021-8 ####[facility] HOSPITALWNCLIA [id number] [place] [address] [place] Basophils/100 WBC (Bld) 0.3 % Normal [facility] Comment on above: Order Comment: Speci men Type: BLOOD SPECIMENOrdering Facility: [facility] Address: [address] [place] [address] Performed By: #### 5 7021-8 ####[facility] BEACHESANGELICALIA [id number] [place] [address] [place] Differential cell count method Nom (Bld) Auto Normal [facility] Comment on above: Order Comment: Speci men Type: BLOOD SPECIMENOrdering Facility: [facility] Address: [address] [place] [address] Performed By: #### 5 7021-8 ####[facility] [id number] [place] [address] [place] Eosinophils (Bld) [#/Vol] 0.23 10*3/uL Normal <0.46 [facility] Comment on above: Order Comment: Speci men Type: BLOOD SPECIMENOrdering Facility: [facility] Address: [address] [place] [address] Performed By: #### 5 7021-8 ####[facility] [id number] [place] [address] [place] Eosinophils/100 WBC (Bld) 4.0 % Normal [facility] Comment on above: Order Comment: Speci men Type: BLOOD SPECIMENOrdering Facility: [facility] Address: [address] [place] [address] Performed By: #### 5 7021-8 ####[facility] [id number] [place] [address] [place] Erythrocyte distribution width (RBC) [Ratio] 20.3 % High 11.5-15.0 [facility] Comment on above: Order Comment: Speci men Type: BLOOD SPECIMENOrdering Facility: [facility] Address: [address] [place] [address] Performed By: #### 5 7021-8 ####[facility] [id number] [place] [address] [place] Hematocrit (Bld) [Volume fraction] 29.1 % Low 39.0-51.0 [facility] Comment on above: Order Comment: Speci men Type: BLOOD SPECIMENOrdering Facility: [facility] Address: [address] [place] [address] Performed By: #### 5 7021-8 ####[facility] BIENVENIDOQUIMBYCINDY [id number] [place] [address] [place] Hemoglobin (Bld) [Mass/Vol] 8.9 g/dL Low 13.0-17.0 [facility] Comment on above: Order Comment: Speci men Type: BLOOD SPECIMENOrdering Facility: [facility] Address: [address] [place] [address] Performed By: #### 5 7021-8 ####[facility] BEACHESNCShireen [id number] [place] [address] [place] Immature granulocytes (Bld) [#/Vol] 10*3/uL Normal <0.10 [facility] Comment on above: Order Comment: Speci men Type: BLOOD SPECIMENOrdering Facility: [facility] Address: [address] [place] [address] Performed By: #### 5 7021-8 ####[facility] BEACHESNCLIA [id number] [place] [address] [place] Immature granulocytes/100 WBC (Bld) 0.3 % Normal [facility] Comment on above: Order Comment: Speci men Type: BLOOD SPECIMENOrdering Facility: [facility] Address: [address] [place] [address] Performed By: #### 5 7021-8 ####[facility] BEACHESNCLIA [id number] [place] [address] [place] Lymphocytes (Bld) [#/Vol] 2.51 10*3/uL Normal 1.00-4.00 [facility] Comment on above: Order Comment: Speci men Type: BLOOD SPECIMENOrdering Facility: [facility] Address: [address] [place] [address] Performed By: #### 5 7021-8 ####[facility] BEACHESCINDY [id number] [place] [address] [place] Lymphocytes/100 WBC (Bld) 43.6 % Normal [facility] Comment on above: Order Comment: Speci men Type: BLOOD SPECIMENOrdering Facility: [facility] Address: [address] [place] [address] Performed By: #### 5 7021-8 ####[facility] [id number] [place] [address] [place] MCH (RBC) [Entitic mass] 24.6 pg Low 26.0-34.0 [facility] Comment on above: Order Comment: Speci men Type: BLOOD SPECIMENOrdering Facility: [facility] Address: [address] [place] [address] Performed By: #### 5 7021-8 ####[facility] [id number] [place] [address] [place] MCHC (RBC) [Mass/Vol] 30.6 g/dL Normal 30.5-36.0 [facility] Comment on above: Order Comment: Speci men Type: BLOOD SPECIMENOrdering Facility: [facility] Address: [address] [place] [address] Performed By: #### 5 7021-8 ####[facility] [id number] [place] [address] [place] MCV (RBC) [Entitic vol] 80.4 fL Normal 80.0-100.0 [facility] Comment on above: Order Comment: Speci men Type: BLOOD SPECIMENOrdering Facility: [facility] Address: [address] [place] [address] Performed By: #### 5 7021-8 ####[facility] [id number] [place] [address] [place] Monocytes (Bld) [#/Vol] 0.42 10*3/uL Normal <0.87 [facility] Comment on above: Order Comment: Speci men Type: BLOOD SPECIMENOrdering Facility: [facility] Address: [address] [place] [address] Performed By: #### 5 7021-8 ####[facility] [id number] [place] [address] [place] Monocytes/100 WBC (Bld) 7.3 % Normal [facility] Comment on above: Order Comment: Speci men Type: BLOOD SPECIMENOrdering Facility: [facility] Address: [address] [place] [address] Performed By: #### 5 7021-8 ####[facility] [id number] [place] [address] [place] Neutrophils (Bld) [#/Vol] 2.56 10*3/uL Normal 1.45-7.50 [facility] Comment on above: Order Comment: Speci men Type: BLOOD SPECIMENOrdering Facility: [facility] Address: [address] [place] [address] Performed By: #### 5 7021-8 ####[facility] [id number] [place] [address] [place] Neutrophils/100 WBC (Bld) 44.5 % Normal [facility] Comment on above: Order Comment: Speci men Type: BLOOD SPECIMENOrdering Facility: [facility] Address: [address] [place] [address] Performed By: #### 5 7021-8 ####[facility] [id number] [place] [address] [place] Nucleated RBC (Bld) [#/Vol] 10*3/uL Normal <0.01 [facility] Comment on above: Order Comment: Speci men Type: BLOOD SPECIMENOrdering Facility: [facility] Address: [address] [place] [address] Performed By: #### 5 7021-8 ####[facility] ANDREW [id number] [place] [address] [place] Nucleated RBC/100 WBC (Bld) [Ratio] 0.0 /100 WBC Normal [facility] Comment on above: Order Comment: Speci men Type: BLOOD SPECIMENOrdering Facility: [facility] Address: [address] [place] [address] Performed By: #### 5 7021-8 ####[facility] BIENVENIDOQUIMBYNCMJ [id number] [place] [address] [place] Platelet mean volume (Bld) [Entitic vol] 8.7 fL Low 9.0-12.7 [facility] Comment on above: Order Comment: Speci men Type: BLOOD SPECIMENOrdering Facility: [facility] Address: [address] [place] [address] Performed By: #### 5 7021-8 ####[facility] BEACHESHEAVENA [id number] [place] [address] [place] Platelets (Bld) [#/Vol] 187 10*3/uL Normal 150-400 [facility] Comment on above: Order Comment: Speci men Type: BLOOD SPECIMENOrdering Facility: [facility] Address: [address] [place] [address] Performed By: #### 5 7021-8 ####[facility] BEACHESNCLIA [id number] [place] [address] [place] RBC (Bld) [#/Vol] 3.62 10*6/uL Low 4.20-6.00 [facility] Comment on above: Order Comment: Speci men Type: BLOOD SPECIMENOrdering Facility: [facility] Address: [address] [place] [address] Performed By: #### 5 7021-8 ####[facility] BIENVENIDOTOWNCLIA [id number] [place] [address] [place] WBC (Bld) [#/Vol] 5.76 10*3/uL Normal 3.70-11.00 [facility] Comment on above: Order Comment: Speci men Type: BLOOD SPECIMENOrdering Facility: [facility] Address: [address] [place] [address] Performed By: #### 5 7021-8 ####[facility] HOSPITALWNCLIA [id number] [place] [address] [place] CNPNon 12-29-2024 CNPN Normal [facility] PSA SerPl-mCncon 12-29-2024 Prostate specific Ag [Mass/Vol] ng/mL Normal <2.60 [facility] Comment on above: Order Comment: Speci men Type: BLOOD SPECIMENOrdering Facility: [facility] Address: [address] [place] [address] Result Comment: Tota l PSA test methodology used is the Electrochemiluminescence Immunoassay by [employer]. Total PSA values by differing methodologies cannot be interchanged. Performed By: #### 2 857-1 ####[facility] LABCLIA [id number] [place] [address] [place] CNOVon 12-23-2024 CNOV Normal [facility] MRI BRAIN WO/W IVCONon 12-22 MRI BRAIN WO/W IVCON Normal [facility] CNOVon 12-14-2024 CNOV Normal [facility] ANES POSTPROC EVALon 025 ANES POSTPROC EVAL Normal [facility] ANES PRE-OPon 12-03-2024 ANES PRE-OP Normal [facility] BRIEF OP NOTon 12-03-2024 BRIEF OP NOT Normal [facility] HISTORY PHYSICALon HISTORY PHYSICAL Normal [facility] OPERATIVE NOon 12-03-2024 OPERATIVE NO Normal [facility] HISTORY PHYSICALon 5 HISTORY PHYSICAL Normal [facility] Bacteria Bld Culton 12-02-19 25 Bacteria identified Cx Nom (Bld) CULTURE, BLOOD: No growth 5 days Normal [facility] Comment on above: Performed By: #### 6 00-7 ####[facility] LABCLIA [id number] [address] [address] [place] Bacteria identified Cx Nom (Bld) CULTURE, BLOOD: No growth 5 days Normal [facility] Comment on above: Performed By: #### 6 00-7 ####[facility] LABCLIA [id number] [address] [address] [place] Basic metabolic 2000 panelon 12-01-2024 Anion gap [Moles/Vol] 10 mmol/L Normal 8-[address] [facility] Comment on above: Order Comment: Speci men Type: BLOOD SPECIMENOrdering Facility: [facility] Address: [address] [place] [address] Performed By: #### 2 4321-2 ####[facility] MILLTOWNCLIA [id number] [place] [address] [place] Calcium [Mass/Vol] 9.2 mg/dL Normal 8.5-10.2 [facility] Comment on above: Order Comment: Speci men Type: BLOOD SPECIMENOrdering Facility: [facility] Address: [address] [place] [address] Performed By: #### 2 4321-2 ####[facility] MILLTOWNCLIA [id number] [place] [address] [place] Chloride [Moles/Vol] 104 mmol/L Normal 98-107 [facility] Comment on above: Order Comment: Speci men Type: BLOOD SPECIMENOrdering Facility: [facility] Address: [address] [place] [address] Performed By: #### 2 4321-2 ####[facility] MILLWKYLIA [id number] [place] [address] [place] CO2 [Moles/Vol] 25 mmol/L Normal 22-30 [facility] Comment on above: Order Comment: Speci men Type: BLOOD SPECIMENOrdering Facility: [facility] Address: [address] [place] [address] Performed By: #### 2 4321-2 ####[facility] [id number] [place] [address] [place] Creatinine [Mass/Vol] 0.93 mg/dL Normal 0.73-1.[address] [facility] Comment on above: Order Comment: Speci men Type: BLOOD SPECIMENOrdering Facility: [facility] Address: [address] [place] [address] Performed By: #### 2 4321-2 ####[facility] [id number] [place] [address] [place] eGFRcr SerPlBld CKD-EPI 2020 88 mL/min/1.73m??? Normal >=60 [facility] Comment on above: Order Comment: Speci men Type: BLOOD SPECIMENOrdering Facility: [facility] Address: [address] [place] [address] Result Comment: Beth mated Glomerular Filtration Rate [...] actual GFR. Performed By: #### 2 4321-2 ####[facility] BEACHESNCLIA [id number] [place] [address] [place] Glucose [Mass/Vol] 93 mg/dL Normal 74-99 [facility] Comment on above: Order Comment: Speci men Type: BLOOD SPECIMENOrdering Facility: [facility] Address: [address] [place] [address] Result Comment: The [place] Diabetes Association (ADA) provides guidance for cutoff [...] Standards of Medical Care in Diabetes 2016, [place] Diabetes Association. Diabetes Care. 2016.39(Suppl 1). Performed By: #### 2 4321-2 ####[facility] [id number] [place] [address] [place] Potassium [Moles/Vol] 3.7 mmol/L Normal 3.7-5.[address] [facility] Comment on above: Order Comment: Speci men Type: BLOOD SPECIMENOrdering Facility: [facility] Address: [address] [place], [place] [address] Performed By: #### 2 4321-2 ####[facility] [id number] [place] [address] [place] Sodium [Moles/Vol] 139 mmol/L Normal 136-144 [facility] Comment on above: Order Comment: Speci men Type: BLOOD SPECIMENOrdering Facility: [facility] Address: [address] [id number] Performed By: #### 2 4321-2 ####[facility] [id number] [place] [address] [place] Urea nitrogen [Mass/Vol] 23 mg/dL Normal 9-24 [facility] Comment on above: Order Comment: Speci men Type: BLOOD SPECIMENOrdering Facility: [facility] Address: [address] [place] [address] Performed By: #### 2 4321-2 ####[facility] MILLWNCLIA [id number] [place] [address] [place] CBC W Auto Differential pane l (Bld)on 12-01-2024 Basophils (Bld) [#/Vol] 10*3/uL Normal <0.11 [facility] Comment on above: Order Comment: Speci men Type: BLOOD SPECIMENOrdering Facility: [facility] Address: [address] [place] [address] Performed By: #### 5 7021-8 ####[facility] HOSPITALWNCLIA [id number] [place] [address] [place] Basophils/100 WBC (Bld) 0.3 % Normal [facility] Comment on above: Order Comment: Speci men Type: BLOOD SPECIMENOrdering Facility: [facility] Address: [address] [place] [address] Performed By: #### 5 7021-8 ####[facility] BEACHESANGELICALIA [id number] [place] [address] [place] Differential cell count method Nom (Bld) Auto Normal [facility] Comment on above: Order Comment: Speci men Type: BLOOD SPECIMENOrdering Facility: [facility] Address: [address] [place] [address] Performed By: #### 5 7021-8 ####[facility] MILLTOWNCLIA [id number] [place] [address] [place] Eosinophils (Bld) [#/Vol] 0.29 10*3/uL Normal <0.46 [facility] Comment on above: Order Comment: Speci men Type: BLOOD SPECIMENOrdering Facility: [facility] Address: [address] [place] [address] Performed By: #### 5 7021-8 ####[facility] [id number] [place] [address] [place] Eosinophils/100 WBC (Bld) 4.4 % Normal [facility] Comment on above: Order Comment: Speci men Type: BLOOD SPECIMENOrdering Facility: [facility] Address: [address] [place] [address] Performed By: #### 5 7021-8 ####[facility] [id number] [place] [address] [place] Erythrocyte distribution width (RBC) [Ratio] 20.1 % High 11.5-15.0 [facility] Comment on above: Order Comment: Speci men Type: BLOOD SPECIMENOrdering Facility: [facility] Address: [address] [place] [address] Performed By: #### 5 7021-8 ####[facility] [id number] [place] [address] [place] Hematocrit (Bld) [Volume fraction] 31.0 % Low 39.0-51.0 [facility] Comment on above: Order Comment: Speci men Type: BLOOD SPECIMENOrdering Facility: [facility] Address: [address] [place] [address] Performed By: #### 5 7021-8 ####[facility] [id number] [place] [address] [place] Hemoglobin (Bld) [Mass/Vol] 9.3 g/dL Low 13.0-17.0 [facility] Comment on above: Order Comment: Speci men Type: BLOOD SPECIMENOrdering Facility: [facility] Address: [address] [place] [address] Performed By: #### 5 7021-8 ####[facility] BEACHESNCLI [id number] [place] [address] [place] Immature granulocytes (Bld) [#/Vol] 0.03 10*3/uL Normal <0.10 [facility] Comment on above: Order Comment: Speci men Type: BLOOD SPECIMENOrdering Facility: [facility] Address: [address] [place] [address] Performed By: #### 5 7021-8 ####[facility] [id number] [place] [address] [place] Immature granulocytes/100 WBC (Bld) 0.5 % Normal [facility] Comment on above: Order Comment: Speci men Type: BLOOD SPECIMENOrdering Facility: [facility] Address: [address] [place] [address] Performed By: #### 5 7021-8 ####[facility] [id number] [place] [address] [place] Lymphocytes (Bld) [#/Vol] 2.79 10*3/uL Normal 1.00-4.00 [facility] Comment on above: Order Comment: Speci men Type: BLOOD SPECIMENOrdering Facility: [facility] Address: [address] [place] [address] Performed By: #### 5 7021-8 ####[facility] [id number] [place] [address] [place] Lymphocytes/100 WBC (Bld) 42.4 % Normal [facility] Comment on above: Order Comment: Speci men Type: BLOOD SPECIMENOrdering Facility: [facility] Address: [address] [place] [address] Performed By: #### 5 7021-8 ####[facility] [id number] [place] [address] [place] MCH (RBC) [Entitic mass] 24.5 pg Low 26.0-34.0 [facility] Comment on above: Order Comment: Speci men Type: BLOOD SPECIMENOrdering Facility: [facility] Address: [address] [place] [address] Performed By: #### 5 7021-8 ####[facility] CORONANCLIA [id number] [place] [address] [place] MCHC (RBC) [Mass/Vol] 30.0 g/dL Low 30.5-36.[address] [facility] Comment on above: Order Comment: Speci men Type: BLOOD SPECIMENOrdering Facility: [facility] Address: [address] [place] [address] Performed By: #### 5 7021-8 ####[facility] BIENVENIDOQUIMBYNCLIA [id number] [place] [address] [place] MCV (RBC) [Entitic vol] 81.8 fL Normal 80.0-100.0 [facility] Comment on above: Order Comment: Speci men Type: BLOOD SPECIMENOrdering Facility: [facility] Address: [address] [place] [address] Performed By: #### 5 7021-8 ####[facility] BEACHESNCKATERINA [id number] [place] [address] [place] Monocytes (Bld) [#/Vol] 0.49 10*3/uL Normal <0.87 [facility] Comment on above: Order Comment: Speci men Type: BLOOD SPECIMENOrdering Facility: [facility] Address: [address] [place] [address] Performed By: #### 5 7021-8 ####[facility] BIENVENIDOQUIMBYNCLIA [id number] [place] [address] [place] Monocytes/100 WBC (Bld) 7.4 % Normal [facility] Comment on above: Order Comment: Speci men Type: BLOOD SPECIMENOrdering Facility: [facility] Address: [address] [place] [address] Performed By: #### 5 7021-8 ####[facility] BEACHESNCLIA [id number] [place] [address] [place] Neutrophils (Bld) [#/Vol] 2.96 10*3/uL Normal 1.45-7.50 [facility] Comment on above: Order Comment: Speci men Type: BLOOD SPECIMENOrdering Facility: [facility] Address: [address] [place] [address] Performed By: #### 5 7021-8 ####[facility] [id number] [place] [address] [place] Neutrophils/100 WBC (Bld) 45.0 % Normal [facility] Comment on above: Order Comment: Speci men Type: BLOOD SPECIMENOrdering Facility: [facility] Address: [address] [place] [address] Performed By: #### 5 7021-8 ####[facility] [id number] [place] [address] [place] Nucleated RBC (Bld) [#/Vol] 10*3/uL Normal <0.01 [facility] Comment on above: Order Comment: Speci men Type: BLOOD SPECIMENOrdering Facility: [facility] Address: [address] [place] [address] Performed By: #### 5 7021-8 ####[facility] [id number] [place] [address] [place] Nucleated RBC/100 WBC (Bld) [Ratio] 0.0 /100 WBC Normal [facility] Comment on above: Order Comment: Speci men Type: BLOOD SPECIMENOrdering Facility: [facility] Address: [address] [place] [address] Performed By: #### 5 7021-8 ####[facility] [id number] [place] [address] [place] Platelet mean volume (Bld) [Entitic vol] 8.8 fL Low 9.0-12.7 [facility] Comment on above: Order Comment: Speci men Type: BLOOD SPECIMENOrdering Facility: [facility] Address: [address] [place] [address] Performed By: #### 5 7021-8 ####[facility] BEACHESNCKATERIN [id number] [place] [address] [place] Platelets (Bld) [#/Vol] 194 10*3/uL Normal 150-400 [facility] Comment on above: Order Comment: Speci men Type: BLOOD SPECIMENOrdering Facility: [facility] Address: [address] [place] [address] Performed By: #### 5 7021-8 ####[facility] BEACHESNCA [id number] [place] [address] [place] RBC (Bld) [#/Vol] 3.79 10*6/uL Low 4.20-6.00 [facility] Comment on above: Order Comment: Speci men Type: BLOOD SPECIMENOrdering Facility: [facility] Address: [address] [place] [address] Performed By: #### 5 7021-8 ####[facility] BEACHESNCA [id number] [place] [address] [place] WBC (Bld) [#/Vol] 6.58 10*3/uL Normal 3.70-11.00 [facility] Comment on above: Order Comment: Speci men Type: BLOOD SPECIMENOrdering Facility: [facility] Address: [address] [place] [address] Performed By: #### 5 7021-8 ####[facility] BEACHESNCLIA [id number] [place] [address] [place] CNOVon 12-01-2024 CNOV Office Visit (URCANT ) -- LUTHER CASTILLO ([id number]) 1955 M Date Time Provider Department 12/01/24 1:45 PM ARSALAN CASTRO During your visit today, we recorded the following information about you: Arsalan Castro MD 12/01/2024 2:02 PM Signed [facility] ESTABLISHED PATIENT NOTE PATIENT: Luther Castillo (69 year old) PCP: Arsalan Lilly MD DATE OF SERVICE: 12/01/2024 The patient is a 69-year-old male with prostate cancer and HTN, presenting for a routine checkup and medication refills. -- SUMMARY: Prostate cancer. mCRPC. Former Dr. Mckeon patient. Stage IV T3(MRI)N0M1. Bone mets. GG3. Cribriform. Original PSA 29. Diagnosed 04/2021. On abiraterone, prednisone, Eligard 45 mg and Xgeva Oncologist. Dr. Villarreal in [place]. On tamsulosin for nocturia 3x PSA <0.02 Stopping tamsulosin as he feels it does not help Follow up yearly with me 1. History of prostate cancer (Z85.46) 2. Malignant neoplasm of prostate (HCC) (C61) PSA remains undetectable as of 11/03/2023; most recent PSA still processing. Patient continues monthly Aranesp injections and abiraterone acetate therapy. - Continue current treatment regimen. - Annual follow-up recommended, with ongoing close monitoring of blood work. - Will update Dr. Villarreal with a summary of today?s visit. 3. Nocturia (R35.1) Patient reports nocturia 3-4 times nightly. Tamsulosin recently discontinued for 4-5 days; no significant change in frequency noted. - Advised patient that tamsulosin may be less effective in prostate cancer patients compared to those with BPH. - Patient will continue to hold tamsulosin and monitor symptoms; refill to be provided if requested via [employer]. 4. Septic shock (HCC) (A41.9) Patient has been hospitalized twice in the past 3 months for sepsis and septic shock; etiology remains unclear. Urinary source considered but recent urinalysis, including today?s sample, shows no evidence of infection. - Continue close monitoring; no changes to current management at this time. 5. Essential (primary) hypertension (I10) Patient continues to take amlodipine as prescribed. - Continue current management. -- FOLLOW UP: Return in about 1 year (around 12/01/2025). ORDERS: Orders Placed This Encounter UA DIP, URINE (POC) Order Comments: Ordered by an unspecified provider -- HISTORY OF PRESENT ILLNESS: Prior notes were reviewed. The patient is a 69-year-old male with a history of prostate cancer, presenting for a routine checkup and medication refills. The patient reports feeling generally well but experiences significant malaise for 4-5 days following his monthly Aranesp injection. He attributes his lack of strength and stamina to his ongoing immunotherapy with abiraterone acetate. He has been hospitalized twice in the past 3 months for 4 nights each due to sepsis and septic shock, with an unknown etiology. Initial suspicions of a urinary source have been ruled out, as recent urinalyses, including today's, show no signs of infection. He has been taking tamsulosin but ran out 4-5 days ago. He notes a possible improvement in ease of urination but continues to experience nocturia 3-4 times per night. He is considering discontinuing tamsulosin to assess its impact on his symptoms. He is also on amlodipine. Recent PSA levels have been undetectable, with the latest test conducted today. REVIEW OF SYSTEMS: Constitutional: (+) malaise, (+) fatigue, (+) generalized weakness Genitourinary: (+) nocturia All other systems negative unless described above. ALLERGIES: ALLERGIES Allergen Reactions Ragweed Pollen Other: See Comments Watering/itchy eyes MEDICATIONS: amoxicillin-clavulanate potassium (AUGMENTIN) 875-125 mg per tablet Take 1 tablet by mouth two times a day. iv contrast (will be provided with radiology test) MRI Brain Inject, intravenously, once for 1 [...] in the MR contrast administration guidelines link predniSONE (DELTASONE) 5 mg tablet TAKE 1 TABLET BY MOUTH TWICE DAILY abiraterone 250 mg tablet TAKE 4 TABLETS ONCE DAILY ON AN EMPTY STO (more content not included)... Normal [facility] Prostate specific Ag [Mass/Vol] ng/mL Normal <2.60 [facility] Comment on above: Order Comment: Speci men Type: BLOOD SPECIMENOrdering Facility: [facility] Address: [address] [place] [address] Result Comment: Erika l PSA test methodology used is the Electrochemiluminescence Immunoassay by [employer]. Total PSA values by differing methodologies cannot be interchanged. Performed By: #### 2 857-1 ####[facility] LABCLIA [id number] [place] [address] [place] UA DIP, URINE (POC)on 2024 BILIRUBIN UA (POCT) Negative Negative [facility] CLARITY UA (POCT) Clear [facility] COLOR UA (POCT) Yellow [facility] GLUCOSE UA (POCT) Negative Negative mg/dL [facility] Hemoglobin Ql (U) Negative Negative [facility] KETONE UA (POCT) Negative Negative mg/dL [facility] LEUKOCYTES UA (POCT) Negative Negative [facility] NITRITE UA (POCT) Negative Negative [facility] PH UA (POCT) 7.0 4.5 - 8.0 [facility] Protein Ql (U) Negative Negative mg/dL [facility] SPECIFIC GRAVITY UA (POCT) 1.015 1.005 - 1.030 [facility] UROBILINOGEN UA (POCT) 0.2 Izabela l E.U./dL [facility] Location:[facility], [address] [place] [address], [address] [place] [address] POINT OF CARE [facility] CNOVon 11-26-2024 CNOV Normal [facility] CNPNon 11-17-2024 CNPN Telephone (URCANT) -- LUTHER CASTILLO ([id number]) 1955 M Date Time Provider Department 11/17/24 ARSALAN CASTRO During your visit today, we recorded the following information about you: Humphrey Gerber MA 11/17/2024 1:15 PM Signed Patient called and needs a Rx renewed but needs to be seen in the office prior, could you please call and schedule an appointment for this patient? Thanks Humphrey Gerber MA November 17, 2024 1:15 PM Ray Velázquez 11/17/2024 4:12 PM Signed Scheduled for December 01 at 1:45 pm. Allergies As of Date: 11/17/2024 Noted Allergy Reaction RAGWEED POLLEN 06/11/2023 14 - Other: See Comments Comments: Watering/itchy eyes Date Reviewed: 11/12/2024 Reviewed by: Sasha Mccabe RN - Fully Assessed Reason for Visit: Appointment [186] Prescriptions as of 11/17/2024 - predniSONE (DELTASONE) 5 mg tablet TAKE 1 TABLET BY MOUTH TWICE DAILY - amoxicillin-clavulanate potassium (AUGMENTIN) 875-125 mg per tablet - abiraterone 250 mg tablet TAKE 4 TABLETS ONCE DAILY ON AN EMPTY STOMACH 1 HOUR BEFORE OR 2 HOURS AFTER A MEAL - Ibuprofen 200 mg cap Take by mouth every 6 hours as needed. - scopolamine (TRANSDERM-SCOP) patch 1.5 mg/72 hr (delivers 1 mg over 3 days) Apply 1 Patch as directed every 72 hours. - atorvastatin (LIPITOR) 20 mg tablet Take 1 tablet by mouth daily at bedtime. For cholesterol. - dexAMETHasone (DECADRON) 4 mg tablet Take [...] Inject subcutaneously once every 6 months. - iv contrast (will be provided with [...] guidelines link. 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 Normal [facility] CNOVon 11-12-2024 CNOV Normal [facility] ANES POSTPROC EVALon 025 ANES POSTPROC EVAL Normal [facility] ANES PRE-OPon 11-03-2024 ANES PRE-OP Normal [facility] HISTORY PHYSICALon HISTORY PHYSICAL Normal [facility] NURSING PROGon 11-03-2024 NURSING PROG Normal [facility] OPERATIVE NOon 11-03-2024 OPERATIVE NO Normal [facility] Basic metabolic 2000 panelon 11-02-2024 Anion gap [Moles/Vol] 13 mmol/L Normal 8-[address] [facility] Comment on above: Order Comment: Speci men Type: BLOOD SPECIMENOrdering Facility: [facility] Address: [address] [place], [place] [id number] Performed By: #### 2 4321-2 ####[facility] MILLTOWNCLIA [id number] [place] [address] [place] Calcium [Mass/Vol] 9.1 mg/dL Normal 8.5-10.2 [facility] Comment on above: Order Comment: Speci men Type: BLOOD SPECIMENOrdering Facility: [facility] Address: [address] [place] [address] Performed By: #### 2 4321-2 ####[facility] MILLTOWNCLIA [id number] [place] [address] [place] Chloride [Moles/Vol] 103 mmol/L Normal 98-107 [facility] Comment on above: Order Comment: Speci men Type: BLOOD SPECIMENOrdering Facility: [facility] Address: [address] [place] [address] Performed By: #### 2 4321-2 ####[facility] MILLWNCLIA [id number] [place] [address] [place] CO2 [Moles/Vol] 22 mmol/L Normal 22-30 [facility] Comment on above: Order Comment: Speci men Type: BLOOD SPECIMENOrdering Facility: [facility] Address: [address] [place] [address] Performed By: #### 2 4321-2 ####[facility] MILLTOWNCLIA [id number] [place] [address] [place] Creatinine [Mass/Vol] 0.92 mg/dL Normal 0.73-1.[address] [facility] Comment on above: Order Comment: Speci men Type: BLOOD SPECIMENOrdering Facility: [facility] Address: [address] [place] [address] Performed By: #### 2 4321-2 ####[facility] MILLTOWNCLIA [id number] [place] [address] [place] eGFRcr SerPlBld CKD-EPI 2020 89 mL/min/1.73m??? Normal >=60 [facility] Comment on above: Order Comment: Bassam hong Type: BLOOD SPECIMENOrdering Facility: [facility] Address: [address] [place] [address] Result Comment: Beth mated Glomerular Filtration Rate [...] actual GFR. Performed By: #### 2 4321-2 ####[facility] [id number] [place] [address] [place] Glucose [Mass/Vol] 99 mg/dL Normal 74-99 [facility] Comment on above: Order Comment: Bassam hong Type: BLOOD SPECIMENOrdering Facility: [facility] Address: [address] [place] [address] Result Comment: The [place] [employer] (ADA) provides guidance for cutoff [...] Standards of Medical Care in Diabetes 2016, [place] [employer]. Diabetes Care. 2016.39(Suppl 1). Performed By: #### 2 4321-2 ####[facility] [id number] [place] [address] [place] Potassium [Moles/Vol] 4.0 mmol/L Normal 3.7-5.[address] [facility] Comment on above: Order Comment: Speci men Type: BLOOD SPECIMENOrdering Facility: [facility] Address: [address] [place] [address] Performed By: #### 2 4321-2 ####[facility] [id number] [place] [address] [place] Sodium [Moles/Vol] 138 mmol/L Normal 136-144 [facility] Comment on above: Order Comment: Speci men Type: BLOOD SPECIMENOrdering Facility: [facility] Address: [address] [place] [address] Performed By: #### 2 4321-2 ####[facility] [id number] [place] [address] [place] Urea nitrogen [Mass/Vol] 23 mg/dL Normal 9-24 [facility] Comment on above: Order Comment: Speci men Type: BLOOD SPECIMENOrdering Facility: [facility] Address: [address] [place] [address] Performed By: #### 2 4321-2 ####[facility] [id number] [place] [address] [place] CBC W Auto Differential pane l (Bld)on 11-02-2024 Basophils (Bld) [#/Vol] 10*3/uL Normal <0.11 [facility] Comment on above: Order Comment: Speci men Type: BLOOD SPECIMENOrdering Facility: [facility] Address: [address] [place] [address] Performed By: #### 5 7021-8 ####[facility] [id number] [address] [place] Basophils/100 WBC (Bld) 0.4 % Normal [facility] Comment on above: Order Comment: Speci men Type: BLOOD SPECIMENOrdering Facility: [facility] Address: [address] [place] [address] Performed By: #### 5 7021-8 ####[facility] BIENVENIDOCRUZLIA [id number] [place] [address] [place] Differential cell count method Nom (Bld) Auto Normal [facility] Comment on above: Order Comment: Speci men Type: BLOOD SPECIMENOrdering Facility: [facility] Address: [address] [place] [address] Performed By: #### 5 7021-8 ####[facility] BEACHESNCA [id number] [place] [address] [place] Eosinophils (Bld) [#/Vol] 0.17 10*3/uL Normal <0.46 [facility] Comment on above: Order Comment: Speci men Type: BLOOD SPECIMENOrdering Facility: [facility] Address: [address] [place] [address] Performed By: #### 5 7021-8 ####[facility] BEACHESNCLIA [id number] [place] [address] [place] Eosinophils/100 WBC (Bld) 3.1 % Normal [facility] Comment on above: Order Comment: Speci men Type: BLOOD SPECIMENOrdering Facility: [facility] Address: [address] [place] [address] Performed By: #### 5 7021-8 ####[facility] HOSPITALLIA [id number] [place] [address] [place] Erythrocyte distribution width (RBC) [Ratio] 20.0 % High 11.5-15.0 [facility] Comment on above: Order Comment: Speci men Type: BLOOD SPECIMENOrdering Facility: [facility] Address: [address] [place] [address] Performed By: #### 5 7021-8 ####[facility] BEACHESNCLIA [id number] [place] [address] [place] Hematocrit (Bld) [Volume fraction] 27.7 % Low 39.0-51.0 [facility] Comment on above: Order Comment: Speci men Type: BLOOD SPECIMENOrdering Facility: [facility] Address: [address] [place] [address] Performed By: #### 5 7021-8 ####[facility] [id number] [place] [address] [place] Hemoglobin (Bld) [Mass/Vol] 8.6 g/dL Low 13.0-17.0 [facility] Comment on above: Order Comment: Speci men Type: BLOOD SPECIMENOrdering Facility: [facility] Address: [address] [place] [address] Performed By: #### 5 7021-8 ####[facility] [id number] [place] [address] [place] Immature granulocytes (Bld) [#/Vol] 10*3/uL Normal <0.10 [facility] Comment on above: Order Comment: Speci men Type: BLOOD SPECIMENOrdering Facility: [facility] Address: [address] [place] [address] Performed By: #### 5 7021-8 ####[facility] HOSPITALKATERINA [id number] [place] [address] [place] Immature granulocytes/100 WBC (Bld) 0.4 % Normal [facility] Comment on above: Order Comment: Speci men Type: BLOOD SPECIMENOrdering Facility: [facility] Address: [address] [place] [address] Performed By: #### 5 7021-8 ####[facility] HOSPITALLI [id number] [place] [address] [place] Lymphocytes (Bld) [#/Vol] 2.54 10*3/uL Normal 1.00-4.00 [facility] Comment on above: Order Comment: Speci men Type: BLOOD SPECIMENOrdering Facility: [facility] Address: [address] [place] [address] Performed By: #### 5 7021-8 ####[facility] [id number] [place] [address] [place] Lymphocytes/100 WBC (Bld) 45.8 % Normal [facility] Comment on above: Order Comment: Speci men Type: BLOOD SPECIMENOrdering Facility: [facility] Address: [address] [place] [address] Performed By: #### 5 7021-8 ####[facility] [id number] [place] [address] [place] MCH (RBC) [Entitic mass] 25.0 pg Low 26.0-34.0 [facility] Comment on above: Order Comment: Speci men Type: BLOOD SPECIMENOrdering Facility: [facility] Address: [address] [place] [address] Performed By: #### 5 7021-8 ####[facility] [id number] [place] [address] [place] MCHC (RBC) [Mass/Vol] 31.0 g/dL Normal 30.5-36.[address] [facility] Comment on above: Order Comment: Speci men Type: BLOOD SPECIMENOrdering Facility: [facility] Address: [address] [place] [address] Performed By: #### 5 7021-8 ####[facility] [id number] [address] [place] MCV (RBC) [Entitic vol] 80.5 fL Normal 80.0-100.0 [facility] Comment on above: Order Comment: Speci men Type: BLOOD SPECIMENOrdering Facility: [facility] Address: [address] [place] [address] Performed By: #### 5 7021-8 ####[facility] MILLTOWNCLIA [id number] [place] [address] [place] Monocytes (Bld) [#/Vol] 0.41 10*3/uL Normal <0.87 [facility] Comment on above: Order Comment: Speci men Type: BLOOD SPECIMENOrdering Facility: [facility] Address: [address] [place] [address] Performed By: #### 5 7021-8 ####[facility] MILLTOWNCLIA [id number] [place] [address] [place] Monocytes/100 WBC (Bld) 7.4 % Normal [facility] Comment on above: Order Comment: Speci men Type: BLOOD SPECIMENOrdering Facility: [facility] Address: [address] [place] [address] Performed By: #### 5 7021-8 ####[facility] HOSPITALWNCLIA [id number] [place] [address] [place] Neutrophils (Bld) [#/Vol] 2.38 10*3/uL Normal 1.45-7.50 [facility] Comment on above: Order Comment: Speci men Type: BLOOD SPECIMENOrdering Facility: [facility] Address: [address] [place] [address] Performed By: #### 5 7021-8 ####[facility] MILLTOWNCLIA [id number] [place] [address] [place] Neutrophils/100 WBC (Bld) 42.9 % Normal [facility] Comment on above: Order Comment: Speci men Type: BLOOD SPECIMENOrdering Facility: [facility] Address: [address] [place] [address] Performed By: #### 5 7021-8 ####[facility] MILLTOWNCLIA [id number] [place] [address] [place] Nucleated RBC (Bld) [#/Vol] 10*3/uL Normal <0.01 [facility] Comment on above: Order Comment: Speci men Type: BLOOD SPECIMENOrdering Facility: [facility] Address: [address] [place] [address] Performed By: #### 5 7021-8 ####[facility] BEACHESCINDY [id number] [place] [address] [place] Nucleated RBC/100 WBC (Bld) [Ratio] 0.0 /100 WBC Normal [facility] Comment on above: Order Comment: Speci men Type: BLOOD SPECIMENOrdering Facility: [facility] Address: [address] [place] [address] Performed By: #### 5 7021-8 ####[facility] BEACHESCINDY [id number] [place] [address] [place] Platelet mean volume (Bld) [Entitic vol] 8.3 fL Low 9.0-12.7 [facility] Comment on above: Order Comment: Speci men Type: BLOOD SPECIMENOrdering Facility: [facility] Address: [address] [place] [address] Performed By: #### 5 7021-8 ####[facility] BEACHESCINDY [id number] [place] [address] [place] Platelets (Bld) [#/Vol] 210 10*3/uL Normal 150-400 [facility] Comment on above: Order Comment: Speci men Type: BLOOD SPECIMENOrdering Facility: [facility] Address: [address] [place] [address] Performed By: #### 5 7021-8 ####[facility] BEACHESANGELICALISihreen [id number] [place] [address] [place] RBC (Bld) [#/Vol] 3.44 10*6/uL Low 4.20-6.00 [facility] Comment on above: Order Comment: Speci men Type: BLOOD SPECIMENOrdering Facility: [facility] Address: [address] [place] [address] Performed By: #### 5 7021-8 ####[facility]ESNCCAC[facility] [id number] [place] [address] [place] WBC (Bld) [#/Vol] 5.54 10*3/uL Normal 3.70-11.00 [facility] Comment on above: Order Comment: Speci men Type: BLOOD SPECIMENOrdering Facility: [facility] Address: [address] [place] [address] Performed By: #### 5 7021-8 ####[facility]ACHESNCCACHE VALLEY [facility] [id number] [place] [address] [place] CNOVSPon 11-02-2024 CNOVSP Normal [facility] PSA SerPl-mCncon 11-02-2024 Prostate specific Ag [Mass/Vol] ng/mL Normal <2.60 [facility] Comment on above: Order Comment: Speci men Type: BLOOD SPECIMENOrdering Facility: [facility] Address: [address] [place] [address] Result Comment: Tota l PSA test methodology used is the Electrochemiluminescence Immunoassay by [employer]. Total PSA values by differing methodologies cannot be interchanged. Performed By: #### 2 857-1 ####[facility] LABCLIA [id number] [place] [address] [place] US CAROTID BILon 10-29-2024 US CAROTID DUONG Normal [facility] CNPNon 10-28-2024 CNPN Normal [facility] HISTORY PHYSICALon HISTORY PHYSICAL Normal [facility] CNOVon 10-27-2024 CNOV Normal [facility] CBC W Auto Differential pane l (Bld)on 10-22-2024 Basophils (Bld) [#/Vol] 10*3/uL Normal <0.11 [facility] Comment on above: Order Comment: Speci men Type: BLOOD SPECIMENOrdering Facility: [facility] Address: [address] [place] [address] Performed By: #### 5 7021-8 ####[facility] HOSPITALWNCLIA [id number] [place] [address] [place] Basophils/100 WBC (Bld) 0.0 % Normal [facility] Comment on above: Order Comment: Speci men Type: BLOOD SPECIMENOrdering Facility: [facility] Address: [address] [place] [address] Performed By: #### 5 7021-8 ####[facility] HOSPITALWNCLIA [id number] [place] [address] [place] Differential cell count method Nom (Bld) Auto Normal [facility] Comment on above: Order Comment: Speci men Type: BLOOD SPECIMENOrdering Facility: [facility] Address: [address] [place] [address] Performed By: #### 5 7021-8 ####[facility] HOSPITALWNCLIA [id number] [place] [address] [place] Eosinophils (Bld) [#/Vol] 0.21 10*3/uL Normal <0.46 [facility] Comment on above: Order Comment: Speci men Type: BLOOD SPECIMENOrdering Facility: [facility] Address: [address] [place] [address] Performed By: #### 5 7021-8 ####[facility] MILLWNCLIA [id number] [place] [address] [place] Eosinophils/100 WBC (Bld) 3.8 % Normal [facility] Comment on above: Order Comment: Speci men Type: BLOOD SPECIMENOrdering Facility: [facility] Address: [address] [place] [address] Performed By: #### 5 7021-8 ####[facility] BEACHESNCLIA [id number] [place] [address] [place] Erythrocyte distribution width (RBC) [Ratio] 20.8 % High 11.5-15.0 [facility] Comment on above: Order Comment: Speci men Type: BLOOD SPECIMENOrdering Facility: [facility] Address: [address] [place] [address] Performed By: #### 5 7021-8 ####[facility] [id number] [place] [address] [place] Hematocrit (Bld) [Volume fraction] 30.3 % Low 39.0-51.0 [facility] Comment on above: Order Comment: Speci men Type: BLOOD SPECIMENOrdering Facility: [facility] Address: [address] [place] [address] Performed By: #### 5 7021-8 ####[facility] [id number] [place] [address] [place] Hemoglobin (Bld) [Mass/Vol] 9.3 g/dL Low 13.0-17.0 [facility] Comment on above: Order Comment: Speci men Type: BLOOD SPECIMENOrdering Facility: [facility] Address: [address] [place] [address] Performed By: #### 5 7021-8 ####[facility] [id number] [place] [address] [place] Immature granulocytes (Bld) [#/Vol] 0.04 10*3/uL Normal <0.10 [facility] Comment on above: Order Comment: Speci men Type: BLOOD SPECIMENOrdering Facility: [facility] Address: [address] [place] [address] Performed By: #### 5 7021-8 ####[facility] [id number] [place] [address] [place] Immature granulocytes/100 WBC (Bld) 0.7 % Normal [facility] Comment on above: Order Comment: Speci men Type: BLOOD SPECIMENOrdering Facility: [facility] Address: [address] [place] [address] Performed By: #### 5 7021-8 ####[facility] BEACHESNCA [id number] [place] [address] [place] Lymphocytes (Bld) [#/Vol] 2.00 10*3/uL Normal 1.00-4.00 [facility] Comment on above: Order Comment: Speci men Type: BLOOD SPECIMENOrdering Facility: [facility] Address: [address] [place] [address] Performed By: #### 5 7021-8 ####[facility] [id number] [place] [address] [place] Lymphocytes/100 WBC (Bld) 36.3 % Normal [facility] Comment on above: Order Comment: Speci men Type: BLOOD SPECIMENOrdering Facility: [facility] Address: [address] [place] [address] Performed By: #### 5 7021-8 ####[facility]ESNCCAC[facility] [id number] [place] [address] [place] MCH (RBC) [Entitic mass] 24.7 pg Low 26.0-34.0 [facility] Comment on above: Order Comment: Speci men Type: BLOOD SPECIMENOrdering Facility: [facility] Address: [address] [place] [address] Performed By: #### 5 7021-8 ####[facility] HOSPITALLIA [id number] [place] [address] [place] MCHC (RBC) [Mass/Vol] 30.7 g/dL Normal 30.5-36.[address] [facility] Comment on above: Order Comment: Speci men Type: BLOOD SPECIMENOrdering Facility: [facility] Address: [address] [place] [address] Performed By: #### 5 7021-8 ####[facility] BIENVENIDOESTHER [id number] [place] [address] [place] MCV (RBC) [Entitic vol] 80.4 fL Normal 80.0-100.0 [facility] Comment on above: Order Comment: Speci men Type: BLOOD SPECIMENOrdering Facility: [facility] Address: [address] [place] [address] Performed By: #### 5 7021-8 ####[facility] BEACHESANGELICACACHE VALLEY [facility]PITAL [id number] [place] [address] [place] Monocytes (Bld) [#/Vol] 0.41 10*3/uL Normal <0.87 [facility] Comment on above: Order Comment: Speci men Type: BLOOD SPECIMENOrdering Facility: [facility] Address: [address] [place] [address] Performed By: #### 5 7021-8 ####[facility] NAPLESShireen [id number] [place] [address] [place] Monocytes/100 WBC (Bld) 7.4 % Normal [facility] Comment on above: Order Comment: Speci men Type: BLOOD SPECIMENOrdering Facility: [facility] Address: [address] [place] [address] Performed By: #### 5 7021-8 ####[facility] [id number] [place] [address] [place] Neutrophils (Bld) [#/Vol] 2.85 10*3/uL Normal 1.45-7.50 [facility] Comment on above: Order Comment: Speci men Type: BLOOD SPECIMENOrdering Facility: [facility] Address: [address] [place] [address] Performed By: #### 5 7021-8 ####[facility] BEACHESANGELICALIA [id number] [place] [address] [place] Neutrophils/100 WBC (Bld) 51.8 % Normal [facility] Comment on above: Order Comment: Speci men Type: BLOOD SPECIMENOrdering Facility: [facility] Address: [address] [place] [address] Performed By: #### 5 7021-8 ####[facility] HOSPITALLIA [id number] [place] [address] [place] Nucleated RBC (Bld) [#/Vol] 10*3/uL Normal <0.01 [facility] Comment on above: Order Comment: Speci men Type: BLOOD SPECIMENOrdering Facility: [facility] Address: [address] [place] [address] Performed By: #### 5 7021-8 ####[facility] [id number] [place] [address] [place] Nucleated RBC/100 WBC (Bld) [Ratio] 0.0 /100 WBC Normal [facility] Comment on above: Order Comment: Speci men Type: BLOOD SPECIMENOrdering Facility: [facility] Address: [address] [place] [address] Performed By: #### 5 7021-8 ####[facility] [id number] [place] [address] [place] Platelet mean volume (Bld) [Entitic vol] 8.7 fL Low 9.0-12.7 [facility] Comment on above: Order Comment: Speci men Type: BLOOD SPECIMENOrdering Facility: [facility] Address: [address] [place] [address] Performed By: #### 5 7021-8 ####[facility]ESNCCACHE [facility]LEY [facility] [id number] [place] [id number] [place] Platelets (Bld) [#/Vol] 199 10*3/uL Normal 150-400 [facility] Comment on above: Order Comment: Speci men Type: BLOOD SPECIMENOrdering Facility: [facility] Address: [address] [place] [address] Performed By: #### 5 7021-8 ####[facility] BEACHESNCMJ [id number] [place] [address] [place] RBC (Bld) [#/Vol] 3.77 10*6/uL Low 4.20-6.00 [facility] Comment on above: Order Comment: Speci men Type: BLOOD SPECIMENOrdering Facility: [facility] Address: [address] [place] [address] Performed By: #### 5 7021-8 ####[facility] BEACHESNCKATERINA [id number] [place] [address] [place] WBC (Bld) [#/Vol] 5.51 10*3/uL Normal 3.70-11.00 [facility] Comment on above: Order Comment: Speci men Type: BLOOD SPECIMENOrdering Facility: [facility] Address: [address] [place] [address] Performed By: #### 5 7021-8 ####[facility] BEACHESANGELICALIA [id number] [place] [address] [place] CNOVon 10-22-2024 CNOV Normal [facility] Comprehensive metabolic 2000 panelon 10-22-2024 Albumin [Mass/Vol] 3.8 g/dL Low 3.9-4.9 [facility] Comment on above: Order Comment: Speci men Type: BLOOD SPECIMENOrdering Facility: [facility] Address: [address] [place] [address] Performed By: #### 2 4323-8 ####[facility] BEACHESCINDY [id number] [place] [address] [place] ALP [Catalytic activity/Vol] 148 U/L High 38-113 [facility] Comment on above: Order Comment: Speci men Type: BLOOD SPECIMENOrdering Facility: [facility] Address: [address] [place] [address] Performed By: #### 2 4323-8 ####[facility] SMILEYUNIVERSITY OF VERMONT MEDICAL CENTERWNCLIA [id number] [place] [address] [place] ALT [Catalytic activity/Vol] 32 U/L Normal 10-54 [facility] Comment on above: Order Comment: Speci men Type: BLOOD SPECIMENOrdering Facility: [facility] Address: [address] [place] [address] Performed By: #### 2 4323-8 ####[facility] BEACHESNCLIA [id number] [place] [address] [place] Anion gap [Moles/Vol] 12 mmol/L Normal 8-[address] [facility] Comment on above: Order Comment: Speci men Type: BLOOD SPECIMENOrdering Facility: [facility] Address: [address] [place] [address] Performed By: #### 2 4323-8 ####[facility] BEACHESNCLIA [id number] [place] [address] [place] AST [Catalytic activity/Vol] 23 U/L Normal 14-40 [facility] Comment on above: Order Comment: Speci men Type: BLOOD SPECIMENOrdering Facility: [facility] Address: [address] [place] [address] Performed By: #### 2 4323-8 ####[facility] BEACHESNCLIA [id number] [place] [address] [place] Bilirubin [Mass/Vol] 0.7 mg/dL Normal 0.2-1.3 [facility] Comment on above: Order Comment: Speci men Type: BLOOD SPECIMENOrdering Facility: [facility] Address: [address] [place] [address] Performed By: #### 2 4323-8 ####[facility] MILLTOWNCLIA [id number] [place] [address] [place] Calcium [Mass/Vol] 9.2 mg/dL Normal 8.5-10.2 [facility] Comment on above: Order Comment: Speci men Type: BLOOD SPECIMENOrdering Facility: [facility] Address: [address] [place] [address] Performed By: #### 2 4323-8 ####[facility] MILLTOWNCLIA [id number] [place] [address] [place] Chloride [Moles/Vol] 101 mmol/L Normal 98-107 [facility] Comment on above: Order Comment: Speci men Type: BLOOD SPECIMENOrdering Facility: [facility] Address: [address] [place] [address] Performed By: #### 2 4323-8 ####[facility] MILLTOWNCLIA [id number] [place] [address] [place] CO2 [Moles/Vol] 25 mmol/L Normal 22-30 [facility] Comment on above: Order Comment: Speci men Type: BLOOD SPECIMENOrdering Facility: [facility] Address: [address] [place] [address] Performed By: #### 2 4323-8 ####[facility] MILLTOWNCLIA [id number] [place] [address] [place] Creatinine [Mass/Vol] 0.81 mg/dL Normal 0.73-1.[address] [facility] Comment on above: Order Comment: Speci men Type: BLOOD SPECIMENOrdering Facility: [facility] Address: [address] [place] [address] Performed By: #### 2 4323-8 ####[facility] MILLTOWNCLIA [id number] [place] [address] [place] eGFRcr SerPlBld CKD-EPI 2020 94 mL/min/1.73m??? Normal >=60 [facility] Comment on above: Order Comment: Bassam hong Type: BLOOD SPECIMENOrdering Facility: [facility] Address: [address] [place] [address] Result Comment: Beth mated Glomerular Filtration Rate [...] reflect actual GFR. Performed By: #### 2 4323-8 ####[facility] [id number] [place] [address] [place] Glucose [Mass/Vol] 104 mg/dL High 74-99 [facility] Comment on above: Order Comment: Bassam hong Type: BLOOD SPECIMENOrdering Facility: [facility] Address: [address] [place] [address] Result Comment: The [place] [employer] (ADA) provides guidance for cutoff [...] Standards of Medical Care in Diabetes 2016, [place] [employer]. Diabetes Care. 2016.39(Suppl 1). Performed By: #### 2 4323-8 ####[facility] [id number] [place] [address] [place] Potassium [Moles/Vol] 3.8 mmol/L Normal 3.7-5.[address] [facility] Comment on above: Order Comment: Speci men Type: BLOOD SPECIMENOrdering Facility: [facility] Address: [address] [place] [address] Performed By: #### 2 4323-8 ####[facility] HOSPITALWNCLIA [id number] [place] [address] [place] Protein [Mass/Vol] 6.8 g/dL Normal 6.3-8.0 [facility] Comment on above: Order Comment: Speci men Type: BLOOD SPECIMENOrdering Facility: [facility] Address: [address] [place] [address] Performed By: #### 2 4323-8 ####[facility] [id number] [place] [address] [place] Sodium [Moles/Vol] 138 mmol/L Normal 136-144 [facility] Comment on above: Order Comment: Speci men Type: BLOOD SPECIMENOrdering Facility: [facility] Address: [address] [place] [address] Performed By: #### 2 4323-8 ####[facility]ACH[facility]CL[facility] [id number] [place] [address] [place] Urea nitrogen [Mass/Vol] 18 mg/dL Normal 9-24 [facility] Comment on above: Order Comment: Speci men Type: BLOOD SPECIMENOrdering Facility: [facility] Address: [address] [place] [address] Performed By: #### 2 4323-8 ####[facility]ACH[facility]CLIA [id number] [place] [address] [place] UA DIP, URINE (POC)on 2024 BILIRUBIN UA (POCT) Negative Negative [facility] CLARITY UA (POCT) Clear [facility] COLOR UA (POCT) Light yellow [facility] GLUCOSE UA (POCT) Negative Negative mg/dL [facility] Hemoglobin Ql (U) Trace-intact Abnormal Negative [facility] Interpretation and review of laboratory results Abnormal [facility] KETONE UA (POCT) Negative Negative mg/dL [facility] LEUKOCYTES UA (POCT) Negative Negative [facility] NITRITE UA (POCT) Negative Negative [facility] PH UA (POCT) 7 4.5 - 8.0 [facility] Protein Ql (U) Negative Negative mg/dL [facility] SPECIFIC GRAVITY UA (POCT) 1.015 1.005 - 1.030 [facility] UROBILINOGEN UA (POCT) 0.2 Izabela l E.U./dL [facility] Location:[facility], [address] [place] [address], [place], [address] [facility] POINT OF CARE [facility] US ABD RIGHT UPPER QUADRANTo n 10-22-2024 US ABD RIGHT UPPER QUADRANT Normal [facility] US ABD SPLEEN -NBon 10-23-19 US ABD SPLEEN -NB Normal [facility] Basic Metabolic Profile (BMP )on 10-21-2024 BUN Normal 4-19 [facility] Comment on above: Result Comment: Canc elled via OM: Order cancelled - Patient discharged Performed By: #### L 100.0100, L500.2500 ####[facility] [address] [facility] [address] BUN/CRE Normal 10-20 [facility] Comment on above: Result Comment: Canc elled via OM: Order cancelled - Patient discharged Performed By: #### L 100.0100, L500.2500 ####[facility] [address] [place], [address] Calcium Normal 7.6-11.0 [facility] Comment on above: Result Comment: Canc elled via OM: Order cancelled - Patient discharged Performed By: #### L 100.0100, L500.2500 ####[facility] [address] [place], [address] CL Normal 98-108 [facility] Comment on above: Result Comment: Canc elled via OM: Order cancelled - Patient discharged Performed By: #### L 100.0100, L500.2500 ####[facility] [address] [place], [address] CO2 Normal 21.0-32.0 [facility] Comment on above: Result Comment: Canc elled via OM: Order cancelled - Patient discharged Performed By: #### L 100.0100, L500.2500 ####[facility] [address] [place], [address] CREAT,SERUM Normal 0.70-1.20 [facility] Comment on above: Result Comment: Canc elled via OM: Order cancelled - Patient discharged Performed By: #### L 100.0100, L500.2500 ####[facility] [address] [place], [address] eGFR Normal >60 [facility] Comment on above: Result Comment: Canc elled via OM: Order cancelled - Patient discharged Performed By: #### L 100.0100, L500.2500 ####[facility] [address] [place], [address] GAP Normal 5-15 [facility] Comment on above: Result Comment: Canc elled via OM: Order cancelled - Patient discharged Performed By: #### L 100.0100, L500.2500 ####[facility] [address] [place], [address] GLU Normal 70-99 [facility] Comment on above: Result Comment: Canc elled via OM: Order cancelled - Patient discharged Performed By: #### L 100.0100, L500.2500 ####[facility] [address] [place], [address] Potassium Normal 3.3-5.1 [facility] Comment on above: Result Comment: Canc elled via OM: Order cancelled - Patient discharged Performed By: #### L 100.0100, L500.2500 ####[facility] [address] [place], [address] Basic Metabolic Profile (BMP) Normal 133-145 [facility] Comment on above: Result Comment: Canc elled via OM: Order cancelled - Patient discharged Performed By: #### L 100.0100, L500.2500 ####[facility] [address] [place], [address] CBC W/Diff, Automatedon - Absolute Neut Normal 2.0-7.7 [facility] Comment on above: Result Comment: Canc elled via OM: Order cancelled - Patient discharged Performed By: #### L 100.0100, L500.2500 ####[facility] [address] [place], [address] HCT Normal 40-54 [facility] Comment on above: Result Comment: Canc elled via OM: Order cancelled - Patient discharged Performed By: #### L 100.0100, L500.2500 ####[facility] [address] [place], [address] HGB Normal 13.0-16.5 [facility] Comment on above: Result Comment: Canc elled via OM: Order cancelled - Patient discharged Performed By: #### L 100.0100, L500.2500 ####[facility] [address] [place], [address] MCH Normal 27.0-32.0 [facility] Comment on above: Result Comment: Canc elled via OM: Order cancelled - Patient discharged Performed By: #### L 100.0100, L500.2500 ####[facility] [address] [place], [address] MCHC Normal 32-36 [facility] Comment on above: Result Comment: Canc elled via OM: Order cancelled - Patient discharged Performed By: #### L 100.0100, L500.2500 ####[facility] [address] [place], [address] MCV Normal 80-94 [facility] Comment on above: Result Comment: Canc elled via OM: Order cancelled - Patient discharged Performed By: #### L 100.0100, L500.2500 ####[facility] [address] [place], [address] NEUT% Normal 47-70 [facility] Comment on above: Result Comment: Canc elled via OM: Order cancelled - Patient discharged Performed By: #### L 100.0100, L500.2500 ####[facility] [address] [place], [address] PLT Normal 150-450 [facility] Comment on above: Result Comment: Canc elled via OM: Order cancelled - Patient discharged Performed By: #### L 100.0100, L500.2500 ####[facility] [address] [place], [address] RBC Normal 4.6-6.2 [facility] Comment on above: Result Comment: Canc elled via OM: Order cancelled - Patient discharged Performed By: #### L 100.0100, L500.2500 ####[facility] [address] [place], [address] RDW CV Normal 11.6-14.6 [facility] Comment on above: Result Comment: Canc elled via OM: Order cancelled - Patient discharged Performed By: #### L 100.0100, L500.2500 ####[facility] [address] [place], [address] RDW SD Normal 35.1-43.9 [facility] Comment on above: Result Comment: Canc elled via OM: Order cancelled - Patient discharged Performed By: #### L 100.0100, L500.2500 ####[facility] [address] [place], [address] WBC Normal 4.4-11.0 [facility] Comment on above: Result Comment: Canc elled via OM: Order cancelled - Patient discharged Performed By: #### L 100.0100, L500.2500 ####[facility] [address] [place], [address] CNPNon 10-21-2024 CNPN Normal [facility] Basic Metabolic Profile (BMP )on 10-20-2024 BUN Normal 4-19 [facility] Comment on above: Result Comment: Canc elled via OM: Order cancelled - Patient discharged Performed By: #### L 100.0100, L500.2500 ####[facility] [address] [place], [address] BUN/CRE Normal 10-20 [facility] Comment on above: Result Comment: Canc elled via OM: Order cancelled - Patient discharged Performed By: #### L 100.0100, L500.2500 ####[facility] [address] [place], [address] Calcium Normal 7.6-11.0 [facility] Comment on above: Result Comment: Canc elled via OM: Order cancelled - Patient discharged Performed By: #### L 100.0100, L500.2500 ####[facility] [address] [place], [address] CL Normal 98-108 [facility] Comment on above: Result Comment: Canc elled via OM: Order cancelled - Patient discharged Performed By: #### L 100.0100, L500.2500 ####[facility] [address] [place], [address] CO2 Normal 21.0-32.0 [facility] Comment on above: Result Comment: Canc elled via OM: Order cancelled - Patient discharged Performed By: #### L 100.0100, L500.2500 ####[facility] [address] [place], [address] CREAT,SERUM Normal 0.70-1.20 [facility] Comment on above: Result Comment: Canc elled via OM: Order cancelled - Patient discharged Performed By: #### L 100.0100, L500.2500 ####[facility] [address] [place], [address] eGFR Normal >60 [facility] Comment on above: Result Comment: Canc elled via OM: Order cancelled - Patient discharged Performed By: #### L 100.0100, L500.2500 ####[facility] [address] [place], [address] GAP Normal 5-15 [facility] Comment on above: Result Comment: Canc elled via OM: Order cancelled - Patient discharged Performed By: #### L 100.0100, L500.2500 ####[facility] [address] [place], [address] GLU Normal 70-99 [facility] Comment on above: Result Comment: Canc elled via OM: Order cancelled - Patient discharged Performed By: #### L 100.0100, L500.2500 ####[facility] [address] [place], [address] Potassium Normal 3.3-5.1 [facility] Comment on above: Result Comment: Canc elled via OM: Order cancelled - Patient discharged Performed By: #### L 100.0100, L500.2500 ####[facility] [address] [place], [address] Basic Metabolic Profile (BMP) Normal 133-145 [facility] Comment on above: Result Comment: Canc elled via OM: Order cancelled - Patient discharged Performed By: #### L 100.0100, L500.2500 ####[facility] [address] [place], [address] CBC W/Diff, Automatedon 07-1 6-2025 Absolute Neut Normal 2.0-7.7 [facility] Comment on above: Result Comment: Canc elled via OM: Order cancelled - Patient discharged Performed By: #### L 100.0100, L500.2500 ####[facility] [address] [place], [address] HCT Normal 40-54 [facility] Comment on above: Result Comment: Canc elled via OM: Order cancelled - Patient discharged Performed By: #### L 100.0100, L500.2500 ####[facility] [address] [place], [address] HGB Normal 13.0-16.5 [facility] Comment on above: Result Comment: Canc elled via OM: Order cancelled - Patient discharged Performed By: #### L 100.0100, L500.2500 ####[facility] [address] [place], [address] MCH Normal 27.0-32.0 [facility] Comment on above: Result Comment: Canc elled via OM: Order cancelled - Patient discharged Performed By: #### L 100.0100, L500.2500 ####[facility] [address] [place], [address] MCHC Normal 32-36 [facility] Comment on above: Result Comment: Canc elled via OM: Order cancelled - Patient discharged Performed By: #### L 100.0100, L500.2500 ####[facility] [address] [place], [address] MCV Normal 80-94 [facility] Comment on above: Result Comment: Canc elled via OM: Order cancelled - Patient discharged Performed By: #### L 100.0100, L500.2500 ####[facility] [address] [place], [address] NEUT% Normal 47-70 [facility] Comment on above: Result Comment: Canc elled via OM: Order cancelled - Patient discharged Performed By: #### L 100.0100, L500.2500 ####[facility] [address] [place], [address] PLT Normal 150-450 [facility] Comment on above: Result Comment: Canc elled via OM: Order cancelled - Patient discharged Performed By: #### L 100.0100, L500.2500 ####[facility] [address] [place], [address] RBC Normal 4.6-6.2 [facility] Comment on above: Result Comment: Canc elled via OM: Order cancelled - Patient discharged Performed By: #### L 100.0100, L500.2500 ####[facility] [address] [place], [address] RDW CV Normal 11.6-14.6 [facility] Comment on above: Result Comment: Canc elled via OM: Order cancelled - Patient discharged Performed By: #### L 100.0100, L500.2500 ####[facility] [address] [place], [address] RDW SD Normal 35.1-43.9 [facility] Comment on above: Result Comment: Canc elled via OM: Order cancelled - Patient discharged Performed By: #### L 100.0100, L500.2500 ####[facility] [address] [place], [address] WBC Normal 4.4-11.0 [facility] Comment on above: Result Comment: Canc elled via OM: Order cancelled - Patient discharged Performed By: #### L 100.0100, L500.2500 ####[facility] [address] [place], [address] Absolute lymphocyte countOrd ered By: Tabatha Ashley on 10-19-2024 Lymphocytes Auto (Unsp spec) [#/Vol] 1.09 10*3/uL 0.83-4.51 [facility] Absolute neutrophil countOrd ered By: Tabatha Ashley on 10-19-2024 Neutrophils (Bld) [#/Vol] 3.5 10*3/uL 2.0-7.7 [facility] Anion gap in Serum or Plasma Ordered By: Tabatha Ashley on 10-19-2024 Anion gap [Moles/Vol] 9 mmol/L 08-19 [facility] Automated lymphocyte count a s percentage of total leukocytesOrdered By: Tabatha Ashley on 10-19-2024 Lymphocytes/100 WBC Auto (Unsp spec) 21.5 % - [facility] BUN/creatinine ratioOrdered By: Tabatha Ashley on 10-19-2024 Urea nitrogen/Creatinine [Mass ratio] 26.5 mg/mg High 01-24 [facility] Basic Metabolic Profile (BMP )on 10-19-2024 BUN/CRE 26.5 RATIO High 01-24 [facility] Comment on above: Performed By: #### L 501.2300, L100.0100, L501.5200, L500.2500 ####[facility] [address] [place], [address] Calcium [Mass/Vol] 7.2 mg/dL Low 7.6-11.0 [facility] Comment on above: Performed By: #### L 501.2300, L100.0100, L501.5200, L500.2500 ####[facility] [address] [place], [address] Chloride [Moles/Vol] 111 mmol/L High 98-108 [facility] Comment on above: Performed By: #### L 501.2300, L100.0100, L501.5200, L500.2500 ####[facility] [address] [place], [address] CO2 [Moles/Vol] 20.8 mmol/L Low 21.0-32.0 [facility] Comment on above: Performed By: #### L 501.2300, L100.0100, L501.5200, L500.2500 ####[facility] [address] [place], [address] Creatinine [Mass/Vol] 0.62 mg/dL Low 0.70-1.20 [facility] Comment on above: Performed By: #### L 501.2300, L100.0100, L501.5200, L500.2500 ####[facility] [address] [place], [address] ECRCL 82.80 ml/min Normal 50-250 [facility] Comment on above: Performed By: #### L 501.2300, L100.0100, L501.5200, L500.2500 ####[facility] [address] [place], [address] GAP 9 Normal 5-15 [facility] Comment on above: Performed By: #### L 501.2300, L100.0100, L501.5200, L500.2500 ####[facility] [address] [place], [address] GFR/1.73 sq M.predicted among non-blacks MDRD (S/P/Bld) [Vol rate/Area] 102 mL/min/{1.73_m2} Normal >60 [facility] Comment on above: Result Comment: mL/m in/1.73m2 CKD-EPI Creatinine Equation (2020) Performed By: #### L 501.2300, L100.0100, L501.5200, L500.2500 ####[facility] [address] [place], [address] Glucose [Mass/Vol] 126 mg/dL High 70-99 [facility] Comment on above: Performed By: #### L 501.2300, L100.0100, L501.5200, L500.2500 ####[facility] [address] [place], [address] Potassium [Moles/Vol] 3.8 mmol/L Normal 3.3-5.1 [facility] Comment on above: Performed By: #### L 501.2300, L100.0100, L501.5200, L500.2500 ####[facility] [address] [place], [address] Sodium [Moles/Vol] 140 mmol/L Normal 133-145 [facility] Comment on above: Performed By: #### L 501.2300, L100.0100, L501.5200, L500.2500 ####[facility] [address] [place], [address] Urea nitrogen [Mass/Vol] 16 mg/dL Normal 4-19 [facility] Comment on above: Performed By: #### L 501.2300, L100.0100, L501.5200, L500.2500 ####[facility] [address] [place], [address] Basophil percentageOrdered B y: Tabatha Ashley on 10-19-2024 Basophils/100 WBC (Bld) 0.0 % 0-1 [facility] CBC W/Diff, Automatedon 10-05 Anisocytosis Ql (Bld) 1+ Normal [facility] Comment on above: Performed By: #### L 501.2300, L100.0100, L501.5200, L500.2500 ####[facility] [address] [place], [address] OVALOCYTE 1+ Normal [facility] Comment on above: Performed By: #### L 501.2300, L100.0100, L501.5200, L500.2500 ####[facility] [address] [place], [address] PLT EST SLT DEC Normal ADEQ [facility] Comment on above: Performed By: #### L 501.2300, L100.0100, L501.5200, L500.2500 ####[facility] [address] [place], [address] TEAR DROP 1+ Normal [facility] Comment on above: Performed By: #### L 501.2300, L100.0100, L501.5200, L500.2500 ####[facility] [address] [place], [address] Carbon dioxide, total [Moles /volume] in Central venous bloodOrdered By: Tabatha Ashley on 10-19-2024 CO2 [Moles/Vol] 20.8 mmol/L Low 21.0-32.0 [facility] Chloride assayOrdered By: Oli Ashley on 10-19-2024 Chloride [Moles/Vol] 111 mmol/L High 98-108 [facility] Culture, Blood (WB)on 2024 CUB Normal [facility] Comment on above: Performed By: #### L 500.3400, L501.2450, L500.2500, L503.6005, L100.0100, M200.1000, M100.636, L509.7001 ####[facility] [address] [place], [address] Echocardiogram study reportO rdered By: Pebbles Kowalski on 10-19-2024 Study report [facility] [address] [place] [address] Echo Complete 10/19/24 0848 MR#: [id number] Acct: [id number] Name: LUTHER CASTILLO II Rep #:[id number] : 1955 69 From: Pebbles Kowalski MD Attending Dr: Dr. Tabatha Ashley MD Status: ADM IN Ordering Dr: Tabatha Ashley MD Date: Location: U Sex: M C Admitted: 10/15/24 Reason For Study Reason For Study: EMBOLI Procedure This was a 2D Doppler, Color Flow transthoracic echocardiogram. Exam performed portable in patient room. Left Ventricle Normal LV size. Mild concentric left ventricular hypertrophy. The LV ejection fraction is 60 %. Stage 1 diastolic dysfunction. Right Ventricle Normal right ventricle. Atria There is mild biatrial dilatation. No bubble contrast study done. No evidence ofPFO/ASD on color Doppler. Mitral Valve Mild mitral valve annular calcification. Mildly thickened mitral valve leaflets.Moderate posteriorly directed mitral valve regurgitation. Tricuspid Valve Mild tricuspid valve insufficiency. Right ventricular systolic pressure estimated to be 45 mmHg. Aortic Valve Mild aortic valve annular calcification. Aortic valve sclerosis without stenosis. Pulmonic Valve The pulmonic valve is not well visualized. Great Vessels Normal sized aortic root. Pericardium/Pleural No pericardial effusion. MMode/2D Measurements & Calculations LVIDd: 4.9 cm IVSd: 1.1 cm LVOT diam: 2.0 cm LVIDs: 3.8 cm LVPWd: 1.3 cm LVOT area: 3.2 cm2 RVDd: 3.6 cm FS: 21.1 % LA dimension: 4.4 cm asc Aorta Diam: 3.1 cm LAV(MOD-bp): 47.6 ml LAV(MOD-bp) Indexed: 25.5 ml/m2 LAV(MOD-sp2): 46.8 ml LAV(MOD-sp4): 48.1 ml __ SV(MOD-sp4): 45.4 ml LVAd ap4: 25.7 cm2 LVAd ap2: 24.4 cm2 LVLd ap4: 7.9 cm LVLd ap2: 7.8 cm SI(MOD-sp4): 24.4 ml/m2 EDV(MOD-sp4): 69.6 ml EDV(MOD-sp2): 64.5 ml EDV(sp4-el): 70.9 ml EDV(sp2-el): 64.5 ml LVAs ap4: 14.0 cm2 LVAs ap2: 14.9 cm2 LVLs ap4: 6.8 cm LVLs ap2: 6.6 cm ESV(MOD-sp4): 24.2 ml ESV(MOD-sp2): 27.7 ml ESV(sp4-el): 24.3 ml ESV(sp2-el): 28.7 ml EF(MOD-sp4): 65.2 % EF(MOD-sp2): 57.0 % EF(sp4-el): 65.7 % __ SV(MOD-sp2): 36.8 ml SV(sp4-el): 46.6 ml Ao sinus diam: 3.4 cm SI(MOD-sp2): 19.8 ml/m2 __ Ao ST Junction: 2.6 cm LA dimension(2D): 4.5 cm LA A4 area: 19.3 cm2 __ TAPSE: 2.5 cm RA A4 area: 18.6 cm2 Doppler Measurements & Calculations MV E max aimee: 99.3 cm/sec Lat Peak E' Aimee: 10.2 cm/sec Med Peak E' Aimee: 8.4 cm/sec MV A max aimee: 106.2 cm/sec E/E' lat: 9.7 E/E' med: 11.9 MV E/A: 0.93 MV P1/2t max aimee: 103.3 cm/sec Ao V2 max: 157.2 cm/sec LV V1 max: 84.3 cm/sec MV P1/2t: 32.6 msec Ao max P.9 mmHg LV V1 max P.8 mmHg MV dec slope: 927.3 cm/sec2 Ao V2 mean: 100.9 cm/sec LV V1 mean P.6 mmHg Ao mean P.7 mmHg LV V1 mean: 58.2 cm/sec MVA(P1/2t): 6.7 cm2 Ao V2 VTI: 37.1 cm LV V1 VTI: 24.3 cm AV (velocity ratio): 0.65 JAILYN(I,D): 2.1 cm2 JAILYN(V,D): 1.7 cm2 SV(LVOT): 77.6 ml PA V2 max: 67.9 cm/sec TR max aimee: 277.1 cm/sec TR max P.7 mmHg ECHO/Echo Complete Interpretation Summary Mild concentric left ventricular hypertrophy. The LV ejection fraction is 60 %. Stage 1 diastolic dysfunction. There is mild biatrial dilatation. Mild mitral valve annular calcification. Mildly thickened mitral valve leaflets.Moderate posteriorly directed mitral valve regurgitation. Mild tricuspid valve insufficiency. Right ventricular systolic pressure estimated to be 45 mmHg. Mild aortic valve annular calcification. Aortic valve sclerosis without stenosis. Ordering Physician: Tabatha Ashley Performed By: Yanni Kee RDCS and Student 10/19/24 1223 Date _ Pebbles Kowalski MD CC: Dr. López Lilly MD; Dr. 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 [facility] Work Phone: Eosinophil percentageOrdered By: Tabatha Ashley on 10-19-2024 Eosinophils/100 WBC (Bld) 2.0 % 0-5 [facility] Erythrocyte distribution wid th ratioOrdered By: Tabatha Ashley on 10-19-2024 Erythrocyte distribution width (RBC) [Ratio] 20.7 % High 11.6-14.6 [facility] Erythrocyte distribution wid th standard deviationOrdered By: Tabatha Ashley on 10-19-2024 Erythrocyte distribution width (RBC) [Ratio] 61.5 fl High 35.1-43.9 [facility] Glomerular filtration rate ( GFR) estimation/1.73 sq m using serum, plasma, or whole bOrdered By: Tabatha Ashley on 10-19-2024 GFR/1.73 sq M.predicted among non-blacks MDRD (S/P/Bld) [Vol rate/Area] 102 mL/min/{1.73_m2} >60 [facility] Comment on above: mL/min/1.73m2 CKD-EP I Creatinine Equation (2020) Hematocrit Auto (Bld) [Volum e fraction]Ordered By: Tabatha Ashley on 10-19-2024 Hematocrit (Bld) [Volume fraction] 25.4 % Low 40-54 [facility] Hemoglobin measurementOrdere d By: Tabatha Ashley on 10-19-2024 Hemoglobin (Bld) [Mass/Vol] 7.7 g/dL Low 13.0-16.5 [facility] Immature granulocytes/100 WB C Auto (Bld)Ordered By: Tabatha Ashley on 10-19-2024 Immature granulocytes/100 WBC (Bld) 1.200 % High 0.0-0.9 [facility] Comment on above: IG% - Immature Granu locytes (promyelocytes, myelocytes and metamyelocytes) > 1% indicates that a LEFT SHIFT is Present. Laboratory - Hematology and Cell countsOrdered By: Tabatha Ashley on 10-19-2024 Anisocytosis Ql (Bld) 1+ [facility] MCV (mean corpuscular volume ) determinationOrdered By: Tabatha Ashley on 10-19-2024 MCV (RBC) [Entitic vol] 81.2 fL 80-94 [facility] Magnesiumon 10-19-2024 Magnesium [Mass/Vol] 1.8 mg/dL Normal 1.5-2.2 [facility] Comment on above: Performed By: #### L 501.2300, L100.0100, L501.5200, L500.2500 ####[facility] [address] [place], [address] Magnesium measurement (mass/ volume)Ordered By: Tabatha Ashley on 10-19-2024 Magnesium (Unsp spec) [Mass/Vol] 1.8 mg/dL 1.5-2.2 [facility] Mean corpuscular hemoglobin (MCH) determinationOrdered By: Tabatha Ashley on 10-19-2024 MCH (RBC) [Entitic mass] 24.6 pg Low 27.0-32.0 [facility] Mean corpuscular hemoglobin concentration (MCHC) determinationOrdered By: Tabatha Ashley on 10-19-2024 MCHC (RBC) [Mass/Vol] 30.3 g/dL Low 32-36 [facility] Mean platelet volume determi nationOrdered By: Tabatha Ashley on 10-19-2024 Platelet mean volume (Bld) [Entitic vol] 9.4 fL 6.2-12.0 [facility] Monocyte percentageOrdered B y: Tabatha Ashley on 10-19-2024 Monocytes/100 WBC (Bld) 5.7 % 0-10 [facility] Neutrophil percentageOrdered By: Tabatha Ashley on 10-19-2024 Neutrophils/100 WBC (Bld) 69.6 % 47-70 [facility] Nucleated red blood cell per centageOrdered By: Tabatha Ashley on 10-19-2024 Nucleated RBC/100 WBC (Bld) [Ratio] 0 % 0-5 [facility] Ovalocyte detectionOrdered B y: Tabatha Ashley on 10-19-2024 Ovalocytes LM Ql (Bld) 1+ [facility] Phosphoruson 10-19-2024 Phosphate [Mass/Vol] 2.0 mg/dL Low 2.7-4.5 [facility] Comment on above: Performed By: #### L 501.2300, L100.0100, L501.5200, L500.2500 ####[facility] [address] [place], [address] Platelet countOrdered By: Oli Ashley on 10-19-2024 Platelets (Bld) [#/Vol] 144 10*3/uL Low 150-450 [facility] Platelet estimateOrdered By: Tabatha Ashley on 10-19-2024 Platelets LM Ql (Bld) SLT DEC ADEQ [facility] Potassium measurement (mass/ volume)Ordered By: Tabatha Ashley on 10-19-2024 Potassium (Unsp spec) [Mass/Vol] 3.8 mmol/L 3.3-5.1 [facility] RBC Auto (Bld) [#/Vol]Ordere d By: Tabatha Ashley on 10-19-2024 RBC (Bld) [#/Vol] 3.13 10*6/uL Low 4.6-6.2 [facility] Serum creatinine measurement (mass/volume)Ordered By: Tabatha Ashley on 10-19-2024 Creatinine [Mass/Vol] 0.62 mg/dL Low 0.70-1.20 [facility] Serum glucose measurement (m ass/volume)Ordered By: Tabatha Ashley on 10-19-2024 Glucose [Mass/Vol] 126 mg/dL High 70-99 [facility] Serum or plasma calcium manuelito urement (mass/volume)Ordered By: Tabatha Ashley on 10-19-2024 Calcium [Mass/Vol] 7.2 mg/dL Low 7.6-11.0 [facility] Serum or plasma urea nitroge n measurement (mass/volume)Ordered By: Tabatha Ashley on 10-19-2024 Urea nitrogen [Mass/Vol] 16 mg/dL 4-19 [facility] Sodium levelOrdered By: Jitendra Ashley on 10-19-2024 Sodium [Moles/Vol] 140 mmol/L 133-145 [facility] Teardrop cell detectionOrder ed By: Tabatha Ashley on 10-19-2024 Dacrocytes LM Ql (Bld) 1+ [facility] White blood cell (WBC) count Ordered By: Tabatha Ashley on 10-19-2024 WBC (Bld) [#/Vol] 5.1 10*3/uL 4.4-11.0 [facility] BC GPC IDon 10-18-2024 GPC ID Normal [facility] Comment on above: Performed By: #### L 500.3400, L501.2450, L500.2500, L503.6005, L100.0100, M200.1000, M100.636, L509.7001 ####[facility] [address] [place], [address] Basic Metabolic Profile (BMP )on 10-18-2024 BUN/CRE 20.1 RATIO High 10-20 [facility] Comment on above: Performed By: #### L 100.0100, L501.2300, L500.2500, L500.3400 ####[facility] [address] [place], [address] Calcium [Mass/Vol] 6.9 mg/dL Low 7.6-11.0 [facility] Comment on above: Performed By: #### L 100.0100, L501.2300, L500.2500, L500.3400 ####[facility] [address] [place], [address] Chloride [Moles/Vol] 116 mmol/L High 98-108 [facility] Comment on above: Performed By: #### L 100.0100, L501.2300, L500.2500, L500.3400 ####[facility] [address] [place], [address] CO2 [Moles/Vol] 18.3 mmol/L Low 21.0-32.0 [facility] Comment on above: Performed By: #### L 100.0100, L501.2300, L500.2500, L500.3400 ####[facility] [address] [place], [address] Creatinine [Mass/Vol] 0.71 mg/dL Normal 0.70-1.20 [facility] Comment on above: Performed By: #### L 100.0100, L501.2300, L500.2500, L500.3400 ####[facility] [address] [place], [address] ECRCL 82.75 ml/min Normal 50-250 [facility] Comment on above: Performed By: #### L 100.0100, L501.2300, L500.2500, L500.3400 ####[facility] [address] [place], [address] GAP 10 Normal 5-15 [facility] Comment on above: Performed By: #### L 100.0100, L501.2300, L500.2500, L500.3400 ####[facility] [address] [place], [address] GFR/1.73 sq M.predicted among non-blacks MDRD (S/P/Bld) [Vol rate/Area] 98 mL/min/{1.73_m2} Normal >60 [facility] Comment on above: Result Comment: mL/m in/1.73m2 CKD-EPI Creatinine Equation (2020) Performed By: #### L 100.0100, L501.2300, L500.2500, L500.3400 ####[facility] [address] [place], [address] Glucose [Mass/Vol] 135 mg/dL High 70-99 [facility] Comment on above: Performed By: #### L 100.0100, L501.2300, L500.2500, L500.3400 ####[facility] [address] [place], [address] Potassium [Moles/Vol] 3.6 mmol/L Normal 3.3-5.1 [facility] Comment on above: Performed By: #### L 100.0100, L501.2300, L500.2500, L500.3400 ####[facility] [address] [place], [address] Sodium [Moles/Vol] 144 mmol/L Normal 133-145 [facility] Comment on above: Performed By: #### L 100.0100, L501.2300, L500.2500, L500.3400 ####[facility] [address] [place], [address] Urea nitrogen [Mass/Vol] 14 mg/dL Normal 4-19 [facility] Comment on above: Performed By: #### L 100.0100, L501.2300, L500.2500, L500.3400 ####[facility] [address] [place], [address] Bilirubin directOrdered By: Lety Augustine on 10-18-2024 Bilirubin.direct [Mass/Vol] 0.16 mg/dL 0.00-0.30 [facility] Bilirubin, totalOrdered By: Lety Augustine on 10-18-2024 Bilirubin [Mass/Vol] 0.34 mg/dL 0.00-1.30 [facility] CBC W/Diff, Automatedon 10-05 Anisocytosis Ql (Bld) 1+ Normal [facility] Comment on above: Performed By: #### L 100.0100, L501.2300, L500.2500, L500.3400 ####[facility] [address] [place], [address] Echo Completeon 10-18-2024 Echo Complete Normal [facility] Laboratory - Chemistry and C hemistry - challengeOrdered By: Lety Augustine on 10-18-2024 AST [Catalytic activity/Vol] 24 U/L <38 [facility] Liver Profileon 10-18-2024 Albumin [Mass/Vol] 2.9 g/dL Low 3.4-4.8 [facility] Comment on above: Performed By: #### L 100.0100, L501.2300, L500.2500, L500.3400 ####[facility] [address] [place], [address] ALK PHOS 120 U/L Normal 40-129 [facility] Comment on above: Performed By: #### L 100.0100, L501.2300, L500.2500, L500.3400 ####[facility] [address] [place], [address] ALT [Catalytic activity/Vol] 24 U/L Normal <=46 [facility] Comment on above: Performed By: #### L 100.0100, L501.2300, L500.2500, L500.3400 ####[facility] [address] [place], [address] AST [Catalytic activity/Vol] 24 U/L Normal <=37 [facility] Comment on above: Performed By: #### L 100.0100, L501.2300, L500.2500, L500.3400 ####[facility] [address] [place], [address] Bilirubin [Mass/Vol] 0.34 mg/dL Normal 0.00-1.30 [facility] Comment on above: Performed By: #### L 100.0100, L501.2300, L500.2500, L500.3400 ####[facility] [address] [place], [address] Bilirubin.direct [Mass/Vol] 0.16 mg/dL Normal 0.00-0.30 [facility] Comment on above: Performed By: #### L 100.0100, L501.2300, L500.2500, L500.3400 ####[facility] [address] [place], [address] Globulin (S) [Mass/Vol] 2.4 g/dL Normal 2.2-4.2 [facility] Comment on above: Performed By: #### L 100.0100, L501.2300, L500.2500, L500.3400 ####[facility] [address] [place], [address] T PROT 5.3 g/dL Low 5.9-8.4 [facility] Comment on above: Performed By: #### L 100.0100, L501.2300, L500.2500, L500.3400 ####[facility] [address] [place], [address] Phosphoruson 10-18-2024 Phosphate [Mass/Vol] 2.1 mg/dL Low 2.7-4.5 [facility] Comment on above: Performed By: #### L 100.0100, L501.2300, L500.2500, L500.3400 ####[facility] [address] [place], [address] Serum globulin measurementOr dered By: Lety Augustine on 10-18-2024 Globulin (S) [Mass/Vol] 2.4 g/dL 2.2-4.2 [facility] Serum or plasma alanine moreno otransferase (ALT) measurementOrdered By: [facility] on 10-18-2024 ALT [Catalytic activity/Vol] 24 U/L <47 [facility] Serum or plasma albumin manuelito urement (mass/volume)Ordered By: [facility] on 10-18-2024 Albumin [Mass/Vol] 2.9 g/dL Low 3.4-4.8 [facility] Serum or plasma alkaline francisca sphatase measurementOrdered By: Lety Davide on 10-18-2024 ALP [Catalytic activity/Vol] 120 U/L 40-129 [facility] Total proteinOrdered By: Aut kayla Augustine on 10-18-2024 Protein [Mass/Vol] 5.3 g/dL Low 5.9-8.4 [facility] Basic Metabolic Profile (BMP )on 10-17-2024 BUN/CRE 24.5 RATIO High 10-20 [facility] Comment on above: Performed By: #### L 500.2500, L501.2300, L100.0100, L501.5200, L500.3400 ####[facility] [address] [place], [address] Calcium [Mass/Vol] 7.0 mg/dL Low 7.6-11.0 [facility] Comment on above: Performed By: #### L 500.2500, L501.2300, L100.0100, L501.5200, L500.3400 ####[facility] [address] [place], [address] Chloride [Moles/Vol] 115 mmol/L High 98-108 [facility] Comment on above: Performed By: #### L 500.2500, L501.2300, L100.0100, L501.5200, L500.3400 ####[facility] [address] [place], [address] CO2 [Moles/Vol] 18.4 mmol/L Low 21.0-32.0 [facility] Comment on above: Performed By: #### L 500.2500, L501.2300, L100.0100, L501.5200, L500.3400 ####[facility] [address] [place], [address] Creatinine [Mass/Vol] 0.63 mg/dL Low 0.70-1.20 [facility] Comment on above: Performed By: #### L 500.2500, L501.2300, L100.0100, L501.5200, L500.3400 ####[facility] [address] [place], [address] ECRCL 76.43 ml/min Normal 50-250 [facility] Comment on above: Performed By: #### L 500.2500, L501.2300, L100.0100, L501.5200, L500.3400 ####[facility] [address] [place], [address] GAP 8 Normal 5-15 [facility] Comment on above: Performed By: #### L 500.2500, L501.2300, L100.0100, L501.5200, L500.3400 ####[facility] [address] [place], [address] GFR/1.73 sq M.predicted among non-blacks MDRD (S/P/Bld) [Vol rate/Area] 102 mL/min/{1.73_m2} Normal >60 [facility] Comment on above: Result Comment: mL/m in/1.73m2 CKD-EPI Creatinine Equation (2020) Performed By: #### L 500.2500, L501.2300, L100.0100, L501.5200, L500.3400 ####[facility] [address] [place], [address] Glucose [Mass/Vol] 155 mg/dL High 70-99 [facility] Comment on above: Performed By: #### L 500.2500, L501.2300, L100.0100, L501.5200, L500.3400 ####[facility] [address] [place], [address] Potassium [Moles/Vol] 3.2 mmol/L Low 3.3-5.1 [facility] Comment on above: Performed By: #### L 500.2500, L501.2300, L100.0100, L501.5200, L500.3400 ####[facility] [address] [place], [address] Sodium [Moles/Vol] 141 mmol/L Normal 133-145 [facility] Comment on above: Performed By: #### L 500.2500, L501.2300, L100.0100, L501.5200, L500.3400 ####[facility] [address] [place], [address] Urea nitrogen [Mass/Vol] 16 mg/dL Normal 4-19 [facility] Comment on above: Performed By: #### L 500.2500, L501.2300, L100.0100, L501.5200, L500.3400 ####[facility] [address] [place], [address] Blood manual differential co mment interpretation (narrative result)Ordered By: Lety Augustine on 10-17-2024 Manual differential comment Regino (Bld) [Interp] SCANNED [facility] CBC W/Diff, Automatedon 10-05 Anisocytosis Ql (Bld) 3+ Normal [facility] Comment on above: Performed By: #### L 500.2500, L501.2300, L100.0100, L501.5200, L500.3400 ####[facility] [address] [place], [address] ALEXX CELLS 1+ Normal [facility] Comment on above: Performed By: #### L 500.2500, L501.2300, L100.0100, L501.5200, L500.3400 ####[facility] [address] [place], [address] MICROCYTIC 1+ Normal [facility] Comment on above: Performed By: #### L 500.2500, L501.2300, L100.0100, L501.5200, L500.3400 ####[facility] [address] [place], [address] OVALOCYTE 2+ Normal [facility] Comment on above: Performed By: #### L 500.2500, L501.2300, L100.0100, L501.5200, L500.3400 ####[facility] [address] [place], [address] SMEAR COMMENT SCANNED Normal [facility] Comment on above: Performed By: #### L 500.2500, L501.2300, L100.0100, L501.5200, L500.3400 ####[facility] [address] [place], [address] Crenated erythrocyte detecti on by light microscopyOrdered By: Lety White on 10-17-2024 Christiana cells LM Ql (Bld) 1+ [facility] Liver Profileon 10-17-2024 Albumin [Mass/Vol] 2.9 g/dL Low 3.4-4.8 [facility] Comment on above: Performed By: #### L 500.2500, L501.2300, L100.0100, L501.5200, L500.3400 ####[facility] [address] [place], [address] ALK PHOS 106 U/L Normal 40-129 [facility] Comment on above: Performed By: #### L 500.2500, L501.2300, L100.0100, L501.5200, L500.3400 ####[facility] [address] [place], [address] ALT [Catalytic activity/Vol] 15 U/L Normal <=46 [facility] Comment on above: Performed By: #### L 500.2500, L501.2300, L100.0100, L501.5200, L500.3400 ####[facility] [address] [place], [address] AST [Catalytic activity/Vol] 19 U/L Normal <=37 [facility] Comment on above: Performed By: #### L 500.2500, L501.2300, L100.0100, L501.5200, L500.3400 ####[facility] [address] [place], [address] Bilirubin [Mass/Vol] 0.37 mg/dL Normal 0.00-1.30 [facility] Comment on above: Performed By: #### L 500.2500, L501.2300, L100.0100, L501.5200, L500.3400 ####[facility] [address] [place], [address] Bilirubin.direct [Mass/Vol] 0.18 mg/dL Normal 0.00-0.30 [facility] Comment on above: Performed By: #### L 500.2500, L501.2300, L100.0100, L501.5200, L500.3400 ####[facility] [address] [place], [address] Globulin (S) [Mass/Vol] 2.4 g/dL Normal 2.2-4.2 [facility] Comment on above: Performed By: #### L 500.2500, L501.2300, L100.0100, L501.5200, L500.3400 ####[facility] [address] [place], [address] T PROT 5.3 g/dL Low 5.9-8.4 [facility] Comment on above: Performed By: #### L 500.2500, L501.2300, L100.0100, L501.5200, L500.3400 ####[facility] [address] [place], [address] Magnesiumon 10-17-2024 Magnesium [Mass/Vol] 1.8 mg/dL Normal 1.5-2.2 [facility] Comment on above: Performed By: #### L 500.2500, L501.2300, L100.0100, L501.5200, L500.3400 ####[facility] [address] [place], [address] Phosphoruson 10-17-2024 Phosphate [Mass/Vol] 1.9 mg/dL Low 2.7-4.5 [facility] Comment on above: Performed By: #### L 500.2500, L501.2300, L100.0100, L501.5200, L500.3400 ####[facility] [address] [place], [address] Basic Metabolic Profile (BMP )on 10-16-2024 BUN/CRE 20.6 RATIO High 10-20 [facility] Comment on above: Performed By: #### L 500.3400, L501.2300, L100.0100, L501.5200, L500.2500 ####[facility] [address] [place], [address] Calcium [Mass/Vol] 7.2 mg/dL Low 7.6-11.0 [facility] Comment on above: Performed By: #### L 500.3400, L501.2300, L100.0100, L501.5200, L500.2500 ####[facility] [address] [place], [address] Chloride [Moles/Vol] 113 mmol/L High 98-108 [facility] Comment on above: Performed By: #### L 500.3400, L501.2300, L100.0100, L501.5200, L500.2500 ####[facility] [address] [place], [address] CO2 [Moles/Vol] 18.3 mmol/L Low 21.0-32.0 [facility] Comment on above: Performed By: #### L 500.3400, L501.2300, L100.0100, L501.5200, L500.2500 ####[facility] [address] [place], [address] Creatinine [Mass/Vol] 0.82 mg/dL Normal 0.70-1.20 [facility] Comment on above: Performed By: #### L 500.3400, L501.2300, L100.0100, L501.5200, L500.2500 ####[facility] [address] [place], [address] ECRCL 74.56 ml/min Normal 50-250 [facility] Comment on above: Performed By: #### L 500.3400, L501.2300, L100.0100, L501.5200, L500.2500 ####[facility] [address] [place], [address] GAP 8 Normal 5-15 [facility] Comment on above: Performed By: #### L 500.3400, L501.2300, L100.0100, L501.5200, L500.2500 ####[facility] [address] [place], [address] GFR/1.73 sq M.predicted among non-blacks MDRD (S/P/Bld) [Vol rate/Area] 94 mL/min/{1.73_m2} Normal >60 [facility] Comment on above: Result Comment: mL/m in/1.73m2 CKD-EPI Creatinine Equation (2020) Performed By: #### L 500.3400, L501.2300, L100.0100, L501.5200, L500.2500 ####[facility] [address] [place], [address] Glucose [Mass/Vol] 139 mg/dL High 70-99 [facility] Comment on above: Performed By: #### L 500.3400, L501.2300, L100.0100, L501.5200, L500.2500 ####[facility] [address] [place], [address] Potassium [Moles/Vol] 3.4 mmol/L Normal 3.3-5.1 [facility] Comment on above: Performed By: #### L 500.3400, L501.2300, L100.0100, L501.5200, L500.2500 ####[facility] [address] [place], [address] Sodium [Moles/Vol] 139 mmol/L Normal 133-145 [facility] Comment on above: Performed By: #### L 500.3400, L501.2300, L100.0100, L501.5200, L500.2500 ####[facility] [address] [place], [address] Urea nitrogen [Mass/Vol] 17 mg/dL Normal 4-19 [facility] Comment on above: Performed By: #### L 500.3400, L501.2300, L100.0100, L501.5200, L500.2500 ####[facility] [address] [place], [address] CBC W/Diff, Automatedon 10-05 Anisocytosis Ql (Bld) 1+ Normal [facility] Comment on above: Performed By: #### L 500.3400, L501.2300, L100.0100, L501.5200, L500.2500 ####[facility] [address] [place], [address] L509.6001on 10-16-2024 CORTISOL 75.40 ug/dL High 6.02-18.40 [facility] Comment on above: Order Comment: Must be drawn 30-60 min AFTER cosyntropin admin. Performed By: #### L 509.6001 ####[facility] [address] [place], [address] CORTISOL 25.70 ug/dL High 6.02-18.40 [facility] Comment on above: Order Comment: must be performed shortly BEFORE cosyntropin admin Performed By: #### L 509.6001 ####[facility] [address] [place], [address] Liver Profileon 10-16-2024 Albumin [Mass/Vol] 2.9 g/dL Low 3.4-4.8 [facility] Comment on above: Performed By: #### L 500.3400, L501.2300, L100.0100, L501.5200, L500.2500 ####[facility] [address] [place], [address] ALK PHOS 107 U/L Normal 40-129 [facility] Comment on above: Performed By: #### L 500.3400, L501.2300, L100.0100, L501.5200, L500.2500 ####[facility] [address] [place], [address] ALT [Catalytic activity/Vol] 16 U/L Normal <=46 [facility] Comment on above: Performed By: #### L 500.3400, L501.2300, L100.0100, L501.5200, L500.2500 ####[facility] [address] [place], [address] AST [Catalytic activity/Vol] 20 U/L Normal <=37 [facility] Comment on above: Performed By: #### L 500.3400, L501.2300, L100.0100, L501.5200, L500.2500 ####[facility] [address] [place], [address] Bilirubin [Mass/Vol] 0.64 mg/dL Normal 0.00-1.30 [facility] Comment on above: Performed By: #### L 500.3400, L501.2300, L100.0100, L501.5200, L500.2500 ####[facility] [address] [place], [address] Bilirubin.direct [Mass/Vol] 0.34 mg/dL High 0.00-0.30 [facility] Comment on above: Performed By: #### L 500.3400, L501.2300, L100.0100, L501.5200, L500.2500 ####[facility] [address] [place], [address] Globulin (S) [Mass/Vol] 2.5 g/dL Normal 2.2-4.2 [facility] Comment on above: Performed By: #### L 500.3400, L501.2300, L100.0100, L501.5200, L500.2500 ####[facility] [address] [place], [address] T PROT 5.4 g/dL Low 5.9-8.4 [facility] Comment on above: Performed By: #### L 500.3400, L501.2300, L100.0100, L501.5200, L500.2500 ####[facility] [address] [place], [address] Magnesiumon 10-16-2024 Magnesium [Mass/Vol] 1.8 mg/dL Normal 1.5-2.2 [facility] Comment on above: Performed By: #### L 500.3400, L501.2300, L100.0100, L501.5200, L500.2500 ####[facility] [address] [place], [address] Phosphoruson 10-16-2024 Phosphate [Mass/Vol] 2.7 mg/dL Normal 2.7-4.5 [facility] Comment on above: Performed By: #### L 500.3400, L501.2300, L100.0100, L501.5200, L500.2500 ####[facility] [address] [place], [address] Serum or plasma cortisol dario surement (mass/volume)Ordered By: Carlos Melvin on 10-16-2024 Cortisol [Mass/Vol] 75.40 ug/dL High 6.02-18.40 [facility] Trough vancomycin levelOrder ed By: Lety Augustine on 10-16-2024 Vancomycin trough [Mass/Vol] 10.3 ug/mL 5.0-15.0 [facility] Comment on above: Recommended goal tro ugh [...] therapy recommended for serious lifethreatening infections include:- Bgsbdxprtc-Ayewtbmyozaj-Qnxnsctqm (Ventilator/Healtcare Associated)-Sepsis PLEASE CONTACT PHARMACY SERVICES (#[id number]) FOR INTERPRETATIONOF RESULTS. Urine Cultureon 10-16-2024 URC Culture exhibits no growth. Normal [facility] Comment on above: Performed By: #### M 100.2202 ####[facility] [address] [place], [place], [id number] Vancomycin, Trough Levelon 0 10-16-2024 VANCO, TROUGH 10.3 ug/mL Normal 5.0-15.0 [facility] Comment on above: Order Comment: 1900 Result Comment: Miles mmended goal trough ranges are generally 10-15 mcg/mlfor less severe/complicated infections such as cellulitisor UTI and 15-20 mcg/ml for more severe/complicatedinfections such as bacteremia/sepsis, osteomyelitis,pneumonia or meningitis. Goal trough ranges should takeinto account indication, patient-specific factors andorganism DAILY.VANCOMYCIN STANDARED DRUG THERAPY TROUGH LEVEL: 5.0 - 15.0 mg/LVANCOMYCIN HIGH INTENSITY THERAPY TROUGH LEVEL: 15.0 - 20.0 mg/LHigh Intensity therapy recommended for serious lifethreatening infections include:- Rpwyphbmsi-Mylwoljcypzr-Xopdzajpy (Ventilator/Healtcare Associated)-SepsisPLEASE CONTACT PHARMACY SERVICES (#[id number]) FOR INTERPRETATIONOF RESULTS. Performed By: #### L 946.8818 ####[facility] [address] [place], [place], [id number] Abdomen Limitedon 10-15-2024 Abdomen Limited Normal [facility] Abdomen/Pelvis W IV Cont ONL Yon 10-15-2024 Abdomen/Pelvis W IV Cont ONLY Normal [facility] Absolute lymphocyte countOrd ered By: Sukhwinder Sierra on 10-15-2024 Lymphocytes Auto (Unsp spec) [#/Vol] 0.87 10*3/uL 0.83-4.51 [facility] Absolute neutrophil countOrd ered By: Sukhwinder Sierra on 10-15-2024 Neutrophils (Bld) [#/Vol] 6.9 10*3/uL 2.0-7.7 [facility] Anion gap in Serum or Plasma Ordered By: Sukhwinder Sierra on 10-15-2024 Anion gap [Moles/Vol] 11 mmol/L 5-15 [facility] Automated lymphocyte count a s percentage of total leukocytesOrdered By: Sukhwinder Sierra on 10-15-2024 Lymphocytes/100 WBC Auto (Unsp spec) 10.6 % Low 19-41 [facility] BUN/creatinine ratioOrdered By: Sukhwinder Sierra on 10-15-2024 Urea nitrogen/Creatinine [Mass ratio] 20.6 mg/mg High 10-20 [facility] Basic Metabolic Profile (BMP )on 10-15-2024 BUN/CRE 20.6 RATIO High 10- [facility] Comment on above: Performed By: #### L 500.3400, L501.2450, L500.2500, L503.6005, L100.0100, M200.1000, M100.636, L509.7001 ####[facility] [address] [place], [address] Calcium [Mass/Vol] 9.1 mg/dL Normal 7.6-11.0 [facility] Comment on above: Performed By: #### L 500.3400, L501.2450, L500.2500, L503.6005, L100.0100, M200.1000, M100.636, L509.7001 ####[facility] [address] [place], [address] Chloride [Moles/Vol] 101 mmol/L Normal 98-108 [facility] Comment on above: Performed By: #### L 500.3400, L501.2450, L500.2500, L503.6005, L100.0100, M200.1000, M100.636, L509.7001 ####[facility] [address] [place], [address] CO2 [Moles/Vol] 24.4 mmol/L Normal 21.0-32.0 [facility] Comment on above: Performed By: #### L 500.3400, L501.2450, L500.2500, L503.6005, L100.0100, M200.1000, M100.636, L509.7001 ####[facility] [address] [place], [address] Creatinine [Mass/Vol] 0.99 mg/dL Normal 0.70-1.20 [facility] Comment on above: Performed By: #### L 500.3400, L501.2450, L500.2500, L503.6005, L100.0100, M200.1000, M100.636, L509.7001 ####[facility] [address] [place], [address] ECRCL 61.47 ml/min Normal 50-250 [facility] Comment on above: Performed By: #### L 500.3400, L501.2450, L500.2500, L503.6005, L100.0100, M200.1000, M100.636, L509.7001 ####[facility] [address] [place], [address] GAP 11 Normal 5-15 [facility] Comment on above: Performed By: #### L 500.3400, L501.2450, L500.2500, L503.6005, L100.0100, M200.1000, M100.636, L509.7001 ####[facility] [address] [place], [address] GFR/1.73 sq M.predicted among non-blacks MDRD (S/P/Bld) [Vol rate/Area] 81 mL/min/{1.73_m2} Normal >60 [facility] Comment on above: Result Comment: mL/m in/1.73m2 CKD-EPI Creatinine Equation (2020) Performed By: #### L 500.3400, L501.2450, L500.2500, L503.6005, L100.0100, M200.1000, M100.636, L509.7001 ####[facility] [address] [place], [address] Glucose [Mass/Vol] 103 mg/dL High 70-99 [facility] Comment on above: Performed By: #### L 500.3400, L501.2450, L500.2500, L503.6005, L100.0100, M200.1000, M100.636, L509.7001 ####[facility] [address] [place], [address] Potassium [Moles/Vol] 4.0 mmol/L Normal 3.3-5.1 [facility] Comment on above: Performed By: #### L 500.3400, L501.2450, L500.2500, L503.6005, L100.0100, M200.1000, M100.636, L509.7001 ####[facility] [address] [place], [address] Sodium [Moles/Vol] 137 mmol/L Normal 133-145 [facility] Comment on above: Performed By: #### L 500.3400, L501.2450, L500.2500, L503.6005, L100.0100, M200.1000, M100.636, L509.7001 ####[facility] [address] [place], [address] Urea nitrogen [Mass/Vol] 20 mg/dL High 4-19 [facility] Comment on above: Performed By: #### L 500.3400, L501.2450, L500.2500, L503.6005, L100.0100, M200.1000, M100.636, L509.7001 ####[facility] [address] [place], [address] Basophil percentageOrdered B y: Sukhwinder Sierra on 10-15-2024 Basophils/100 WBC (Bld) 0.1 % 0-1 [facility] Bilirubin Test strip Ql (U)O rdered By: Sukhwinder Sierra on 10-15-2024 Bilirubin Ql (U) Negative Negative [facility] Bilirubin directOrdered By: Sukhwinder Sierra on 10-15-2024 Bilirubin.direct [Mass/Vol] 0.68 mg/dL High 0.00-0.30 [facility] Bilirubin, totalOrdered By: Sukhwinder Sierra on 10-15-2024 Bilirubin [Mass/Vol] 1.46 mg/dL High 0.00-1.30 [facility] Blood cultureOrdered By: Ector Sierra on 10-15-2024 Bacteria identified Cx Nom (Bld) Alpha hemolytic organism Abnormal [facility] Bacteria identified Cx Nom (Bld) Streptococcus intermedius Abnormal [facility] CBC W/Diff, Automatedon 10-05 Anisocytosis Ql (Bld) 1+ Normal [facility] Comment on above: Performed By: #### L 500.3400, L501.2450, L500.2500, L503.6005, L100.0100, M200.1000, M100.636, L509.7001 ####[facility] [address] [place], [address] Carbon dioxide, total [Moles /volume] in Central venous bloodOrdered By: Sukhwinder Sierra on 10-15-2024 CO2 [Moles/Vol] 24.4 mmol/L 21.0-32.0 [facility] Chest 1 View (Portable)on Chest 1 View (Portable) Normal [facility] Chloride assayOrdered By: Eugenie Sierra on 10-15-2024 Chloride [Moles/Vol] 101 mmol/L 98-108 [facility] Consultation - Infectious Dx on 10-15-2024 Consultation - Infectious Dx Normal [facility] Consultation - Intensiviston 10-15-2024 Consultation - Soft Sugar Supervisor Normal [facility] Emergency Department Summary on 10-15-2024 Emergency Department Summary Normal [facility] Eosinophil percentageOrdered By: Sukhwinder Sierra on 10-15-2024 Eosinophils/100 WBC (Bld) 0.6 % 0-5 [facility] Erythrocyte distribution wid th ratioOrdered By: Sukhwinder Sierra on 10-15-2024 Erythrocyte distribution width (RBC) [Ratio] 20.5 % High 11.6-14.6 [facility] Erythrocyte distribution wid th standard deviationOrdered By: Sukhwinder Sierra on 10-15-2024 Erythrocyte distribution width (RBC) [Ratio] 61.2 fl High 35.1-43.9 [facility] Glomerular filtration rate ( GFR) estimation/1.73 sq m using serum, plasma, or whole bOrdered By: Sukhwinder Sierra on 10-15-2024 GFR/1.73 sq M.predicted among non-blacks MDRD (S/P/Bld) [Vol rate/Area] 81 mL/min/{1.73_m2} >60 [facility] Comment on above: mL/min/1.73m2 CKD-EP I Creatinine Equation (2020) H AND P Exam - Hospitaliston 10-15-2024 H&P Exam - Hospitalist Normal [facility] Hematocrit Auto (Bld) [Volum e fraction]Ordered By: Sukhwinder Sierra on 10-15-2024 Hematocrit (Bld) [Volume fraction] 32.2 % Low 40-54 [facility] Hemoglobin measurementOrdere d By: Sukhwinder Sierra on 10-15-2024 Hemoglobin (Bld) [Mass/Vol] 9.8 g/dL Low 13.0-16.5 [facility] Immature granulocytes/100 WB C Auto (Bld)Ordered By: Sukhwinder Sierra on 10-15-2024 Immature granulocytes/100 WBC (Bld) 0.400 % 0.0-0.9 [facility] Comment on above: IG% - Immature Granu locytes (promyelocytes, myelocytes and metamyelocytes) > 1% indicates that a LEFT SHIFT is Present. Ketones Test strip Ql (U)Ord ered By: Sukhwinder Sierra on 10-15-2024 Ketones Ql (U) Negative Negative [facility] L509.7001on 10-15-2024 Procalcitonin 0.87 ng/mL High <=0.10 [facility] Comment on above: Result Comment: Inte rpretation:<0.10-0.25 ng/mL: Antibiotic therapy discouraged. Bacterialinfection unlikely.0.25-0.50 ng/mL: Antibiotic therapy encouraged. Bacterialinfection possible.>0.50 ng/mL: Antibiotic therapy strongly encouraged.Suggestive of presence of bacterial infection.PCT should always be interpreted in the clinical context ofthe patient. Therefore, clinicians should use the PCTresults in conjunction with other laboratory findings andclinical signs of the patient. Performed By: #### L 500.3400, L501.2450, L500.2500, L503.6005, L100.0100, M200.1000, M100.636, L509.7001 ####[facility] [address] [place], [place], [id number] Laboratory - Chemistry and C hemistry - challengeOrdered By: Sukhwinder Sierra on 10-15-2024 AST [Catalytic activity/Vol] 23 U/L <38 [facility] Laboratory - Hematology and Cell countsOrdered By: Sukhwinder Sierra on 10-15-2024 Anisocytosis Ql (Bld) 1+ [facility] Lactic Acidon 10-15-2024 Lactate [Moles/Vol] 1.8 mmol/L Normal 0.0-2.0 [facility] Comment on above: Order Comment: Y Performed By: #### L 500.3400, L501.2450, L500.2500, L503.6005, L100.0100, M200.1000, M100.636, L509.7001 ####[facility] [address] [place], [place], [id number] Lactic acid measurementOrder ed By: Sukhwinder Sierra on 10-15-2024 Lactate [Moles/Vol] 1.8 mmol/L 0.0-2.0 [facility] Legionella Antigen Urineon 0 10-15-2024 LEGU Normal [facility] Comment on above: Performed By: #### M 300.4600, M300.4500 ####[facility] [address] [place], [place], [id number] Lipaseon 10-15-2024 Lipase [Catalytic activity/Vol] 22 U/L Normal 13-75 [facility] Comment on above: Result Comment: Roger abdul note:LIPASE revised reference range effective 22.New Lipase methodology. Expected to produce lower valuesthan the previous assay method.NEW Reference Range: 13 - 75 U/L Performed By: #### L 500.3400, L501.2450, L500.2500, L503.6005, L100.0100, M200.1000, M100.636, L509.7001 ####[facility] [address] [place], [address] Lipase measurementOrdered By : Sukhwinder Sierra on 10-15-2024 Lipase [Catalytic activity/Vol] 22 U/L 13-75 [facility] Comment on above: Please note:LIPASE r evised reference range effective 22. New Lipase methodology. Expected to produce lower values than the previous assay method. NEW Reference Range: 13 - 75 U/L Liver Profileon 10-15-2024 Albumin [Mass/Vol] 3.9 g/dL Normal 3.4-4.8 [facility] Comment on above: Performed By: #### L 500.3400, L501.2450, L500.2500, L503.6005, L100.0100, M200.1000, M100.636, L509.7001 ####[facility] [address] [place], [place], [phone]) ALK PHOS 129 U/L Normal 40-129 [facility] Comment on above: Performed By: #### L 500.3400, L501.2450, L500.2500, L503.6005, L100.0100, M200.1000, M100.636, L509.7001 ####[facility] [address] [place], [address] ALT [Catalytic activity/Vol] 19 U/L Normal <=46 [facility] Comment on above: Performed By: #### L 500.3400, L501.2450, L500.2500, L503.6005, L100.0100, M200.1000, M100.636, L509.7001 ####[facility] [address] [place], [address] AST [Catalytic activity/Vol] 23 U/L Normal <=37 [facility] Comment on above: Performed By: #### L 500.3400, L501.2450, L500.2500, L503.6005, L100.0100, M200.1000, M100.636, L509.7001 ####[facility] [address] [place], [address] Bilirubin [Mass/Vol] 1.46 mg/dL High 0.00-1.30 [facility] Comment on above: Performed By: #### L 500.3400, L501.2450, L500.2500, L503.6005, L100.0100, M200.1000, M100.636, L509.7001 ####[facility] [address] [place], [address] Bilirubin.direct [Mass/Vol] 0.68 mg/dL High 0.00-0.30 [facility] Comment on above: Performed By: #### L 500.3400, L501.2450, L500.2500, L503.6005, L100.0100, M200.1000, M100.636, L509.7001 ####[facility] [address] [place], [address] Globulin (S) [Mass/Vol] 3.2 g/dL Normal 2.2-4.2 [facility] Comment on above: Performed By: #### L 500.3400, L501.2450, L500.2500, L503.6005, L100.0100, M200.1000, M100.636, L509.7001 ####[facility] [address] [place], [address] T PROT 7.1 g/dL Normal 5.9-8.4 [facility] Comment on above: Performed By: #### L 500.3400, L501.2450, L500.2500, L503.6005, L100.0100, M200.1000, M100.636, L509.7001 ####[facility] [address] [place], [address] M8200.1000on 10-15-2024 M8200.1000 Normal Reference Ran ge = Negative MRSA DNA Nose Ql IMAN+probe GeneXpert Instrument, PCR method MRSA PCR MRSA NEGATIVE Normal [facility] Comment on above: Performed By: #### M 8200.1000 ####[facility] [address] [place], [address] MCV (mean corpuscular volume ) determinationOrdered By: Sukhwinder Sierra on 10-15-2024 MCV (RBC) [Entitic vol] 82.4 fL 80-94 [facility] Magnesiumon 10-15-2024 Magnesium [Mass/Vol] 1.7 mg/dL Normal 1.5-2.2 [facility] Comment on above: Order Comment: Comme nts: May add to ED labsComments: may add to ED labs Performed By: #### L 501.2300, L501.5200 ####[facility] [address] [facility] [place], [address] Mean corpuscular hemoglobin (MCH) determinationOrdered By: Sukhwinder Sierra on 10-15-2024 MCH (RBC) [Entitic mass] 25.1 pg Low 27.0-32.0 [facility] Mean corpuscular hemoglobin concentration (MCHC) determinationOrdered By: Sukhwinder Sierra on 10-15-2024 MCHC (RBC) [Mass/Vol] 30.4 g/dL Low 32-36 [facility] Mean platelet volume determi nationOrdered By: Sukhwinder Sierra on 10-15-2024 Platelet mean volume (Bld) [Entitic vol] 9.0 fL 6.2-12.0 [facility] Microscopic analysis of urin e for red blood cells (RBC)Ordered By: Sukhwinder Sierra on 10-15-2024 Microscopic analysis of urine for red blood cells (RBC) 0 SEEN /hpf 0-5 [facility] Monocyte percentageOrdered B y: Sukhwinder Sierra on 10-15-2024 Monocytes/100 WBC (Bld) 3.5 % 0-10 [facility] Mucus LM Ql (Urine sed)Order ed By: Sukhwinder Sierra on 10-15-2024 Mucus Ql (Urine sed) 0 SEEN /hpf [facility] Nasal methicillin resistant Staphylococcus aureus (MRSA) DNA detection by PCROrdered By: Lety White on 10-15-2024 MRSA DNA IMAN+probe Ql (Nose) [facility] Neutrophil percentageOrdered By: Sukhwinder Sierra on 10-15-2024 Neutrophils/100 WBC (Bld) 84.8 % High 47-70 [facility] Nitrite Test strip Ql (U)Ord ered By: Sukhwinder Sierra on 10-15-2024 Nitrite Ql (U) Negative Negative [facility] Nucleated red blood cell per centageOrdered By: Sukhwinder Sierra on 10-15-2024 Nucleated RBC/100 WBC (Bld) [Ratio] 0 % 0-5 [facility] Organism identificationOrder ed By: Sukhwinder Sierra on 10-15-2024 Microorganism identified Cx Nom (Unsp spec) Strep anginosus Abnormal [facility] Phosphoruson 10-15-2024 Phosphate [Mass/Vol] 2.4 mg/dL Low 2.7-4.5 [facility] Comment on above: Order Comment: Comme nts: May add to ED labsComments: may add to ED labs Performed By: #### L 501.2300, L501.5200 ####[facility] [address] [place], [place], [phone] Platelet countOrdered By: Eugenie Sierra on 10-15-2024 Platelets (Bld) [#/Vol] 129 10*3/uL Low 150-450 [facility] Potassium measurement (mass/ volume)Ordered By: Sukhwinder Sierra on 10-15-2024 Potassium (Unsp spec) [Mass/Vol] 4.0 mmol/L 3.3-5.1 [facility] Procalcitonin [Mass/volume] in Serum or Plasma by ImmunoassayOrdered By: Sukhwinder Sierra on 07-11-2025 Procalcitonin IA [Mass/Vol] 0.87 ng/mL High <0.11 [facility] Comment on above: Interpretation:<0.10 -0.25 ng/mL: Antibiotic therapy discouraged. Bacterial infection unlikely.0.25-0.50 ng/mL: Antibiotic therapy encouraged. Bacterial infection possible.>0.50 ng/mL: Antibiotic therapy strongly encouraged. Suggestive of presence of bacterial infection.PCT should always be interpreted in the clinical context of the patient. Therefore, clinicians should use the PCT results in conjunction with other laboratory findings and clinical signs of the patient. Protein Test strip Ql (U)Ord ered By: Sukhwinder Sierra on 10-15-2024 Protein Ql (U) Negative Negative [facility] RBC Auto (Bld) [#/Vol]Ordere d By: Sukhwinder Sierra on 10-15-2024 RBC (Bld) [#/Vol] 3.91 10*6/uL Low 4.6-6.2 [facility] RESPIRATORY PANEL MOLECULARo n 10-15-2024 RP PANEL Normal [facility] Comment on above: Performed By: #### M 100.638 ####[facility] [address] [place], [place], [phone] Respiratory pathogens detect ion panel by molecular detection methodOrdered By: Lety Augustine on 10-15-2024 Respiratory pathogens DNA and RNA panel IMAN+probe (Resp) [facility] Serum creatinine measurement (mass/volume)Ordered By: Sukhwinder Sierra on 10-15-2024 Creatinine [Mass/Vol] 0.99 mg/dL 0.70-1.20 [facility] Serum globulin measurementOr dered By: Sukhwinder Sierra on 10-15-2024 Globulin (S) [Mass/Vol] 3.2 g/dL 2.2-4.2 [facility] Serum glucose measurement (m ass/volume)Ordered By: Sukhwinder Sierra on 10-15-2024 Glucose [Mass/Vol] 103 mg/dL High 70-99 [facility] Serum or plasma alanine moreno otransferase (ALT) measurementOrdered By: Sukhwinder Sierra on 10-15-2024 ALT [Catalytic activity/Vol] 19 U/L <47 [facility] Serum or plasma albumin manuelito urement (mass/volume)Ordered By: Sukhwinder Sierra on 10-15-2024 Albumin [Mass/Vol] 3.9 g/dL 3.4-4.8 [facility] Serum or plasma alkaline francisca sphatase measurementOrdered By: Sukhwinder Sierra on 10-15-2024 ALP [Catalytic activity/Vol] 129 U/L 40-129 [facility] Serum or plasma calcium manuelito urement (mass/volume)Ordered By: Sukhwinder Sierra on 10-15-2024 Calcium [Mass/Vol] 9.1 mg/dL 7.6-11.0 [facility] Serum or plasma urea nitroge n measurement (mass/volume)Ordered By: Sukhwinder Sierra on 10-15-2024 Urea nitrogen [Mass/Vol] 20 mg/dL High 4-19 [facility] Sodium levelOrdered By: Onur Sierra on 10-15-2024 Sodium [Moles/Vol] 137 mmol/L 133-145 [facility] Squamous epithelial cells de tection in urine sediment by light microscopyOrdered By: Sukhwinder Sierra on 10-15-2024 Epithelial cells.squamous LM Ql (Urine sed) 0 SEEN /hpf 0-5 [facility] Strep pneumoniae Antig(UR,CS F)on 10-15-2024 STPAG Normal [facility] Comment on above: Performed By: #### M 300.4600, M300.4500 ####[facility] [address] [place], [place], [phone] Total proteinOrdered By: Ector Sierra on 10-15-2024 Protein [Mass/Vol] 7.1 g/dL 5.9-8.4 [facility] Urinalysis, Completeon 10-15 BACTERIA RARE Normal None Seen [facility] Comment on above: Order Comment: CLEAN CATCH Performed By: #### L 400.0001 ####[facility] [address] [place], [address] EPI,SQUAMOUS 0 SEEN Normal 0-5 [facility] Comment on above: Order Comment: CLEAN CATCH Performed By: #### L 400.0001 ####[facility] [address] [place], [address] Mucus Ql (Urine sed) 0 SEEN Normal [facility] Comment on above: Order Comment: CLEAN CATCH Performed By: #### L 400.0001 ####[facility] [address] [place], [address] RBC 0 SEEN Normal 0-5 [facility] Comment on above: Order Comment: CLEAN CATCH Performed By: #### L 400.0001 ####[facility] [address] [place], [address] WBC 0 SEEN Normal 0-5 [facility] Comment on above: Order Comment: CLEAN CATCH Performed By: #### L 400.0001 ####[facility] [address] [place], [place], [phone] Urine Legionella pneumophila antigen detectionOrdered By: Lety White on 10-15-2024 L. pneumophila Ag Ql (U) [facility] Urine clarityOrdered By: cEtor Sierra on 10-15-2024 Clarity (U) Clear Clear [facility] Urine color determinationOrd ered By: Sukhwinder Sierra on 10-15-2024 Color (U) Yellow Yellow [facility] Urine cultureOrdered By: Ector Sierra on 10-15-2024 Bacteria identified Cx Nom (U) Culture exhibits no growth. [facility] Urine glucose detectionOrder ed By: Sukhwinder Sierra on 10-15-2024 Glucose Ql (U) Normal mg/dl Normal [facility] Urine leukocyte esterase det ection by dipstickOrdered By: Sukhwinder Sierra on 10-15-2024 Leukocyte esterase Test strip Ql (U) Negative Negative [facility] Urine pHOrdered By: Sukhwinder ferraro on 10-15-2024 pH (U) 7.0 [pH] 5.0 - 8.0 [facility] Urine sediment bacteria coun t by microscopy (number/high power field)Ordered By: Sukhwinder Sierra on 10-15-2024 Bacteria LM.HPF (Urine sed) [#/Area] RARE /hpf None Seen [facility] Urine specific gravity measu rementOrdered By: Sukhwinder Sierra on 10-15-2024 Specific gravity (U) [Rel density] 1.010 1.002-1.03 0 [facility] Urine urobilinogen measureme ntOrdered By: Sukhwinder Sierra on 10-15-2024 Urobilinogen Ql (U) Normal mg/dl Normal [facility] White blood cell (WBC) count Ordered By: Sukhwinder Sierra on 10-15-2024 WBC (Bld) [#/Vol] 8.2 10*3/uL 4.4-11.0 [facility] White blood cell countOrdere d By: Sukhwinder Sierra on 10-15-2024 White blood cell count 0 SEEN /hpf 0-5 [facility] CNPNon 10-14-2024 CNPN Normal [facility] Wound Ctr History AND Physic anahy 10-14-2024 Wound Ctr History & Physical Normal [facility] CNOVon 10-13-2024 CNOV Normal [facility] CNPNon 10-13-2024 CNPN Normal [facility] CNOVon 10-12-2024 CNOV Normal [facility] Culture, Blood (WB)on 2024 CUB Normal [facility] Comment on above: Performed By: #### L 300.3900, L503.6005, L300.4310, L100.0100, L500.4050, M200.1000 ####[facility] [address] [facility] [place], [place], [phone] CNNURSEon 10-01-2024 CNNURSE Normal [facility] CNPNon 10-01-2024 CNPN Normal [facility] Basic metabolic 2000 panelon 09-30-2024 Anion gap [Moles/Vol] 11 mmol/L Normal 8-[address] [facility] Comment on above: Order Comment: Speci men Type: BLOOD SPECIMENOrdering Facility: [facility] Address: [address] [place] [address] Performed By: #### 2 4321-2 ####[facility] [id number] [place] [address] [place] Calcium [Mass/Vol] 9.2 mg/dL Normal 8.5-10.2 [facility] Comment on above: Order Comment: Speci men Type: BLOOD SPECIMENOrdering Facility: [facility] Address: [address] [place] [address] Performed By: #### 2 4321-2 ####[facility] SMILEY MILLTOWNCLIA [id number] [place] [address] [place] Chloride [Moles/Vol] 102 mmol/L Normal 98-107 [facility] Comment on above: Order Comment: Speci men Type: BLOOD SPECIMENOrdering Facility: [facility] Address: [address] [place], [place] [address] Performed By: #### 2 4321-2 ####[facility] HOSPITALWKYLIA [id number] [place] [address] [place] CO2 [Moles/Vol] 23 mmol/L Normal 22-30 [facility] Comment on above: Order Comment: Speci men Type: BLOOD SPECIMENOrdering Facility: [facility] Address: [address] [place] [address] Performed By: #### 2 4321-2 ####[facility] MILLWNCLIA [id number] [place] [address] [place] Creatinine [Mass/Vol] 1.16 mg/dL Normal 0.73-1.[address] [facility] Comment on above: Order Comment: Speci men Type: BLOOD SPECIMENOrdering Facility: [facility] Address: [address] [place] [address] Performed By: #### 2 4321-2 ####[facility] MILLWNCLIA [id number] [place] [address] [place] Creatinine and Glomerular filtration rate.predicted panel (S/P/Bld) 67 mL/min/1.73m??? Normal >=60 [facility] Comment on above: Order Comment: Speci men Type: BLOOD SPECIMENOrdering Facility: [facility] Address: [address] [id number] Result Comment: Beth mated Glomerular Filtration Rate [...] actual GFR. Performed By: #### 2 4321-2 ####[facility] [id number] [place] [address] [place] Glucose [Mass/Vol] 104 mg/dL High 74-99 [facility] Comment on above: Order Comment: Bassam hong Type: BLOOD SPECIMENOrdering Facility: [facility] Address: [address] [place] [address] Result Comment: The [place] Diabetes Association (ADA) provides guidance for cutoff [...] Standards of Medical Care in Diabetes 2016, [place] [employer] Association. Diabetes Care. 2016.39(Suppl 1). Performed By: #### 2 4321-2 ####[facility] [id number] [place] [address] [place] Potassium [Moles/Vol] 4.3 mmol/L Normal 3.7-5.[address] [facility] Comment on above: Order Comment: Bassam hong Type: BLOOD SPECIMENOrdering Facility: [facility] Address: [address] [place] [address] Performed By: #### 2 4321-2 ####[facility]IT[facility] [id number] [place] [address] [place] Sodium [Moles/Vol] 136 mmol/L Normal 136-144 [facility] Comment on above: Order Comment: Speci men Type: BLOOD SPECIMENOrdering Facility: [facility] Address: [address] [place] [address] Performed By: #### 2 4321-2 ####[facility] [id number] [place] [address] [place] Urea nitrogen [Mass/Vol] 28 mg/dL High 9-24 [facility] Comment on above: Order Comment: Speci men Type: BLOOD SPECIMENOrdering Facility: [facility] Address: [address] [place] [address] Performed By: #### 2 4321-2 ####[facility] [id number] [place] [address] [place] CBC W Auto Differential pane l (Bld)on 09-30-2024 Anisocytosis Ql (Bld) Present Normal [facility] Comment on above: Order Comment: Speci men Type: BLOOD SPECIMENOrdering Facility: [facility] Address: [address] [place] [address] Performed By: #### 5 7021-8 ####[facility] [id number] [place] [address] [place] [facility] LABCLIA [id number] [place] [address] [place]#### 34856-1 ####[facility] LABCLIA [id number] [place] [address] [place] Basophils (Bld) [#/Vol] 10*3/uL Normal <0.11 [facility] Comment on above: Order Comment: Speci men Type: BLOOD SPECIMENOrdering Facility: [facility] Address: [address] [id number] Performed By: #### 5 7021-8 ####[facility] MILLTOWNCLIA [id number] [place] [address] [place] [facility] LABCLIA [id number] [facility]UEGRANADA H[facility] COMM[facility] HOSPITALK [address], [place] [facility] [place]#### 475[address]-8 ####[facility] LABCLIA [id number] [facility]UEGRANADA HILLS COMM[facility]ITY HOSPITALK [address], [facility]95 [place] Basophils/100 WBC (Bld) 0.1 % Normal [facility] Comment on above: Order Comment: Speci men Type: BLOOD SPECIMENOrdering Facility: [facility] Address: [address] [place] [address] Performed By: #### 5 7021-8 ####[facility] MILLWNCLIA [id number] [place] [address] [place] [facility] LABCLIA [id number] [facility] [address], [place] [address] [place]#### 01926-2 ####[facility] LABCLIA [id number] [facility] [address], [place] [address] [place] Dacrocytes LM Ql (Bld) Few Normal Cl [facility] Comment on above: Order Comment: Speci men Type: BLOOD SPECIMENOrdering Facility: [facility] Address: [facility] [address] Performed By: #### 5 7021-8 ####[facility] MILLTOWNCLIA [id number] [place] [address] [place] [facility] LABCLIA [id number] [facility] [address] [place] [address] [place]#### 20175-2 ####[facility] LABCLIA [id number] [place] [address] [place] Differential cell count method Nom (Bld) Auto Normal [facility] Comment on above: Order Comment: Speci men Type: BLOOD SPECIMENOrdering Facility: [facility] Address: [address] [place] [address] Performed By: #### 5 7021-8 ####[facility] MILLTOWNCLIA [id number] [place] [address] [place] [facility] LABCLIA [id number] [facility] [place] [address] [place]#### 22676-1 ####[facility] LABCLIA [id number] [place] [address] [place] Eosinophils (Bld) [#/Vol] 0.09 10*3/uL Normal <0.46 [facility] Comment on above: Order Comment: Speci men Type: BLOOD SPECIMENOrdering Facility: [facility] Address: [address] [place] [address] Performed By: #### 5 7021-8 ####[facility] MILLWNCLIA [id number] [address] STATES [facility] LABCLIA [id number] [facility] [place] [address] [place]#### 68931-7 ####[facility] LABCLIA [id number] [facility] [place] [address] [place] Eosinophils/100 WBC (Bld) 1.3 % Normal [facility] Comment on above: Order Comment: Speci men Type: BLOOD SPECIMENOrdering Facility: [facility] Address: [address] [place] [address] Performed By: #### 5 7021-8 ####[facility] MILLTOWNCLIA [id number] [place] [address] [place] [facility] LABCLIA [id number] [address], [place] [address] [place]#### 10455-9 ####[facility] LABCLIA [id number] [facility] [address], [place] [address] [place] Erythrocyte distribution width (RBC) [Ratio] 21.1 % High 11.5-15.0 [facility] Comment on above: Order Comment: Speci men Type: BLOOD SPECIMENOrdering Facility: [facility] Address: [address] [place] [address] Performed By: #### 5 7021-8 ####[facility] [id number] [place], [place] [address] [place] [address] [place] [facility] LABCLIA [id number] [address], [place] [address] [place]#### 94010-3 ####[facility] LABCLIA [id number] [address], [place] [address] [place] Hematocrit (Bld) [Volume fraction] 31.0 % Low 39.0-51.0 [facility] Comment on above: Order Comment: Speci men Type: BLOOD SPECIMENOrdering Facility: [facility] Address: [address] [place] [address] Performed By: #### 5 7021-8 ####[facility] HOSPITALWNCLIA [id number] [place] [address] [place] [facility] LABCLIA [id number] [address], [place] [address] [place]#### 12466-0 ####[facility] LABCLIA [id number] [address], [place] [address] [place] Hemoglobin (Bld) [Mass/Vol] 9.5 g/dL Low 13.0-17.0 [facility] Comment on above: Order Comment: Speci men Type: BLOOD SPECIMENOrdering Facility: [facility] Address: [address] [place] [address] Performed By: #### 5 7021-8 ####[facility] MILLTOWNCLIA [id number] [place] [address] [place] [facility] LABCLIA [id number] [place] [address] [place]#### 29090-7 ####[facility] LABCLIA [id number] [place] [address] [place] Immature granulocytes (Bld) [#/Vol] 0.03 10*3/uL Normal <0.10 [facility] Comment on above: Order Comment: Speci men Type: BLOOD SPECIMENOrdering Facility: [facility] Address: [address] [place] [address] Performed By: #### 5 7021-8 ####[facility] HOSPITALWNCLIA [id number] [address] LABCLIA [id number] [address] STATES [place]#### 32189-6 ####[facility] LABCLIA [id number] [address] [place] Immature granulocytes/100 WBC (Bld) 0.4 % Normal [facility] Comment on above: Order Comment: Speci men Type: BLOOD SPECIMENOrdering Facility: [facility] Address: [address] [place] [address] Performed By: #### 5 7021-8 ####[facility] MILLTOWNCLIA [id number] [address] STATES OF [facility] LABCLIA [id number] [address], [place] [address] [place]#### 01797-5 ####[facility] LABCLIA [id number] [address], [place] [address] [place] Lymphocytes (Bld) [#/Vol] 1.74 10*3/uL Normal 1.00-4.00 [facility] Comment on above: Order Comment: Speci men Type: BLOOD SPECIMENOrdering Facility: [facility] Address: [address] [place] [address] Performed By: #### 5 7021-8 ####[facility] [id number] [address] STATES OF [facility] LABCLIA [id number] [place] [address] [place]#### 43511-4 ####[facility] LABCLIA [id number] [address], [place] [address] [place] Lymphocytes/100 WBC (Bld) 26.1 % Normal [facility] Comment on above: Order Comment: Speci men Type: BLOOD SPECIMENOrdering Facility: [facility] Address: [address] [place] [address] Performed By: #### 5 7021-8 ####[facility] [id number] [place] [address] [place] [facility] LABCLIA [id number] [address], [place] [address] [place]#### 09543-0 ####[facility] LABCLIA [id number] [place] [address] [place] MCH (RBC) [Entitic mass] 25.1 pg Low 26.0-34.0 [facility] Comment on above: Order Comment: Speci men Type: BLOOD SPECIMENOrdering Facility: [facility] Address: [address] [place] [address] Performed By: #### 5 7021-8 ####[facility] MILLWNCLIA [id number] [place] [address] [place] [facility] LABCLIA [id number] [facility] [place] [address] [place]#### 35591-0 ####[facility] LABCLIA [id number] [facility]GRANA[facility] H[facility] HOSPITALK [address], [facility]95 [place] MCHC (RBC) [Mass/Vol] 30.6 g/dL Normal 30.5-36.0 [facility] Comment on above: Order Comment: Speci men Type: BLOOD SPECIMENOrdering Facility: [facility] Address: [address] [place] [address] Performed By: #### 5 7021-8 ####[facility]ESNCLIA [id number] [place] [address] [place] [facility] LABCLIA [id number] [facility] [place] [address] [place]#### 07628-0 ####[facility] LABCLIA [id number] [facility] [place] [address] [place] MCV (RBC) [Entitic vol] 81.8 fL Normal 80.0-100.0 [facility] Comment on above: Order Comment: Speci men Type: BLOOD SPECIMENOrdering Facility: [facility] Address: [address] [place], [place] [address] Performed By: #### 5 7021-8 ####[facility] HOSPITALWNCLIA [id number] [place] [address] [place] [facility] LABCLIA [id number] [facility] [place] [address] [place]#### 11634-3 ####[facility] LABCLIA [id number] [place] [address] [place] Monocytes (Bld) [#/Vol] 0.35 10*3/uL Normal <0.87 [facility] Comment on above: Order Comment: Speci men Type: BLOOD SPECIMENOrdering Facility: [facility] Address: [address] [place] [address] Performed By: #### 5 7021-8 ####[facility] [id number] [address] STATES OF [facility] LABCLIA [id number] [address] OF [place]#### 61661-6 ####[facility] LABCLIA [id number] [address] [place] Monocytes/100 WBC (Bld) 5.2 % Normal [facility] Comment on above: Order Comment: Speci men Type: BLOOD SPECIMENOrdering Facility: [facility] Address: [address] [place] [address] Performed By: #### 5 7021-8 ####[facility] [id number] [address] STATES OF [facility] LABCLIA [id number] [address] [place]#### 74514-5 ####[facility] LABCLIA [id number] [place] [address] [place] Neutrophils (Bld) [#/Vol] 4.45 10*3/uL Normal 1.45-7.50 [facility] Comment on above: Order Comment: Speci men Type: BLOOD SPECIMENOrdering Facility: [facility] Address: [address] [place] [address] Performed By: #### 5 7021-8 ####[facility] MILLTOWNCLIA [id number] [place] [address] [place] [facility] LABCLIA [id number] [address] [place] [address] [place]#### 60345-8 ####[facility] LABCLIA [id number] [address] [place] [address] [place] Neutrophils/100 WBC (Bld) 66.9 % Normal [facility] Comment on above: Order Comment: Speci men Type: BLOOD SPECIMENOrdering Facility: [facility] Address: [address] [place] [address] Performed By: #### 5 7021-8 ####[facility]PITALLIA [id number] [place] [address] [place] [facility] LABCLIA [id number] [address], [place] [facility] [place]#### 70806-1 ####[facility] LABCLIA [id number] [address], [place] [address] [place] Nucleated RBC (Bld) [#/Vol] 10*3/uL Normal <0.01 [facility] Comment on above: Order Comment: Speci men Type: BLOOD SPECIMENOrdering Facility: [facility] Address: [address] [place] [address] Performed By: #### 5 7021-8 ####[facility] HOSPITALWNCLIA [id number] [address] STATES OF [facility] LABCLIA [id number] [address], [place] [facility] [place]#### 03013-1 ####[facility] LABCLIA [id number] [address] [address] [place] Nucleated RBC/100 WBC (Bld) [Ratio] 0.0 /100 WBC Normal [facility] Comment on above: Order Comment: Speci men Type: BLOOD SPECIMENOrdering Facility: [facility] Address: [address] [place] [address] Performed By: #### 5 7021-8 ####[facility] HOSPITALWNCLIA [id number] [place] [address] [place] [facility] LABCLIA [id number] [place] [address] [place]#### 12539-0 ####[facility] LABCLIA [id number] [place] [address] [place] Ovalocytes LM Ql (Bld) Few Normal Cl [facility] Comment on above: Order Comment: Speci men Type: BLOOD SPECIMENOrdering Facility: [facility] Address: [address] [place] [address] Performed By: #### 5 7021-8 ####[facility] [id number] [place] [address] [place] [facility] LABCLIA [id number] [place] [address] [place]#### 05832-8 ####[facility] LABCLIA [id number] [place] [address] [place] Platelet mean volume (Bld) [Entitic vol] 8.8 fL Low 9.0-12.7 [facility] Comment on above: Order Comment: Speci men Type: BLOOD SPECIMENOrdering Facility: [facility] Address: [address] [place] [address] Performed By: #### 5 7021-8 ####[facility] BEACHESNCLIA [id number] [place] [address] [place] [facility] LABCLIA [id number] [facility]ALK [place], [place] [address] [place]#### 69830-1 ####[facility] LABCLIA [id number] [facility] [id number], [place] [address] [place] Platelets (Bld) [#/Vol] 332 10*3/uL Normal 150-400 [facility] Comment on above: Order Comment: Speci men Type: BLOOD SPECIMENOrdering Facility: [facility] Address: [address] [place] [address] Result Comment: No c lot detected. Performed By: #### 5 7021-8 ####[facility] HOSPITALWNCLIA [id number] [place] [address] [place] [facility] LABCLIA [id number] [facility]IT[facility] [address] [place] [address] [place]#### 41723-8 ####[facility] LABCLIA [id number] [facility] [address] [place] [address] [place] Platelets Estimate (Bld) [#/Vol] Adequate Normal [facility] Comment on above: Order Comment: Speci men Type: BLOOD SPECIMENOrdering Facility: [facility] Address: [address] [place] [address] Performed By: #### 5 7021-8 ####[facility] SMILEY MILLWNCLIA [id number] [place] [address] [place] [facility] LABCLIA [id number] [facility] [id number], [place] [address] [place]#### 71379-2 ####[facility] LABCLIA [id number] [facility]ALK [id number], [place] [address] [place] Polychromasia LM Ql (Bld) Slight Normal [facility] Comment on above: Order Comment: Speci men Type: BLOOD SPECIMENOrdering Facility: [facility] Address: [address] [place] [address] Performed By: #### 5 7021-8 ####[facility] MILLTOWNCLIA [id number] [place] [address] [place] [facility] LABCLIA [id number] [facility] [address] [place] [address] [place]#### 47238-2 ####[facility] LABCLIA [id number] [facility] [address], [facility]95 [place] RBC (Bld) [#/Vol] 3.79 10*6/uL Low 4.20-6.00 [facility] Comment on above: Order Comment: Speci men Type: BLOOD SPECIMENOrdering Facility: [facility] Address: [address] [place] [address] Performed By: #### 5 7021-8 ####[facility] MILLWNCLIA [id number] [place] [address] [place] [facility] LABCLIA [id number] [address], [place] [address] [place]#### 93396-2 ####[facility] LABCLIA [id number] [facility] [address], [facility]95 [place] RBC FRAGMENTS Few Abnormal None Seen [facility] Comment on above: Order Comment: Speci men Type: BLOOD SPECIMENOrdering Facility: [facility] Address: [address] [place], [place] [address] Performed By: #### 5 7021-8 ####[facility] MILLTOWNCLIA [id number] [place] [address] [place] [facility] LABCLIA [id number] [address] [place] [address] [place]#### 72659-4 ####[facility] LABCLIA [id number] [place] [address] [place] RED CELL MORPH Reviewed: see result s of individual morphologies Normal [facility] Comment on above: Order Comment: Speci men Type: BLOOD SPECIMENOrdering Facility: [facility] Address: [address] [place] [address] Performed By: #### 5 7021-8 ####[facility]ITALLIA [id number] [place] [address] [place] [facility] LABCLIA [id number] [place] [address] [place]#### 52797-9 ####[facility] LABCLIA [id number] [place] [address] [place] WBC (Bld) [#/Vol] 6.67 10*3/uL Normal 3.70-11.00 [facility] Comment on above: Order Comment: Speci men Type: BLOOD SPECIMENOrdering Facility: [facility] Address: [address] [place] [address] Performed By: #### 5 7021-8 ####[facility]ITALLIA [id number] [place] [address] [place] [facility] LABCLIA [id number] [place] [address] [place]#### 76950-6 ####[facility] LABCLIA [id number] [place] [address] [place] CNOVSPon 09-30-2024 CNOVSP Normal [facility] CNPNon 09-30-2024 CNPN Normal [facility] Folate SerPl-mCncon 10-01-19 25 Folate [Mass/Vol] 12.7 ng/mL Normal >4.7 [facility] Comment on above: Order Comment: Speci men Type: BLOOD SPECIMENOrdering Facility: [facility] Address: [address] [place] [address] Performed By: #### 2 132-9, 2284-8 ####[facility] LABCLIA [id number] [place] [address] [place] PSA SerPl-mCncon 09-30-2024 Prostate specific Ag [Mass/Vol] ng/mL Normal <2.60 [facility] Comment on above: Order Comment: Speci men Type: BLOOD SPECIMENOrdering Facility: [facility] Address: [address] [place] [address] Result Comment: Tota l PSA test methodology used is the Electrochemiluminescence Immunoassay by [employer]. Total PSA values by differing methodologies cannot be interchanged. Performed By: #### 2 857-1 ####[facility] LABIA [id number] [place] [address] [place] Retics #on 09-30-2024 Reticulocytes (Bld) [#/Vol] Normal [facility] Comment on above: Order Comment: Speci men Type: BLOOD SPECIMENOrdering Facility: [facility] Address: [address] [place] [address] Result Comment: Abso lute Value Below Analyzer Linearity. Performed By: #### 5 7021-8 ####[facility] [id number] [place] [address] [place] [facility] LABCLIA [id number] [place] [address] [place]#### 61589-4 ####[facility] LABIA [id number] [place] [address] [place] Reticulocytes (Bld) [#/Vol]o n 09-30-2024 Reticulocytes/100 RBC (Bld) % Low 0.4-2.0 [facility] Comment on above: Order Comment: Speci men Type: BLOOD SPECIMENOrdering Facility: [facility] Address: [address] [place], [place] [address] [id number] Performed By: #### 5 7021-8 ####[facility] SMILEY HOANGCINDY [id number] [place] [address] [place] [facility] LABCLIA [id number] [address]#### 41497-8 ####[facility] LABIA [id number] [place] [id number] [place] Vit B12 [facility] 025 Cobalamin (Vitamin B12) [Mass/Vol] 704 pg/mL Normal 232-1245 [facility] Comment on above: Order Comment: Speci men Type: BLOOD SPECIMENOrdering Facility: [facility] Address: [address] [place], [place] [address] [address] Performed By: #### 2 132-9, 2284-8 ####[facility] LABIA [id number] [place] [address] [place] MR Brain WO [...] recommended to exclude early cerebral metastatic disease. Stock Crane Operator: APRIL Transcribe Date/Time: Sep 28 2024 1:30P Dictated by : NICOLE CERVANTES MD This examination was interpreted and the report reviewed and electronically signed by: NICOLE CERVANTES MD on Sep 28 2024 1:38PM [facility] DIVISION OF RADIOLOGY * * *Final Report* * * DATE OF EXAM: Sep 28 2024 12:50PM [facility] 0295 - MRI BRAIN WO/W IVCON / [...] near the vertex. DIVISION OF RADIOLOGY Provider, [facility] - 09/28/2024 * * *Final Report* * * DATE OF EXAM: Sep 28 2024 12:50PM [facility] 0295 - MRI BRAIN WO/W IVCON / [...] recommended to exclude early cerebral metastatic disease. Stock Crane Operator: [facility] Transcribe Date/Time: Sep 28 2024 1:30P Dictated by : NICOLE CERVANTES MD This examination was interpreted and the report reviewed and electronically signed by: NICOLE CERVANTES MD on Sep 28 2024 1:38PM EST [facility] Radiology Study observation (narrative) [facility] MR Brain WO and W contrast I VOrdered By: Ccf Provider on 09-28-2024 [facility] MRI BRAIN WO/W IVCONon 09-28 MRI BRAIN WO/W IVCON Normal [facility] Culture, Blood (WB)on 2024 CUB No growth in 5 days. Normal [facility] Comment on above: Performed By: #### B TS, M200.1000, [facility] ####[facility] [address] [place], [address] CNPNon 09-23-2024 CNPN Normal [facility] Absolute lymphocyte countOrd ered By: Ivan Nugent on 09-22-2024 Lymphocytes Auto (Unsp spec) [#/Vol] 1.11 10*3/uL 0.83-4.51 [facility] Absolute neutrophil countOrd ered By: Ivan Nugent on 09-22-2024 Neutrophils (Bld) [#/Vol] 3.0 10*3/uL 2.0-7.7 [facility] Anion gap in Serum or Plasma Ordered By: Ivan Nugent on 09-22-2024 Anion gap [Moles/Vol] 10 mmol/L 5-15 [facility] Automated lymphocyte count a s percentage of total leukocytesOrdered By: Ivan Nugent on 09-22-2024 Lymphocytes/100 WBC Auto (Unsp spec) 25.6 % 19-41 [facility] BUN/creatinine ratioOrdered By: Ivan Nugent on 09-22-2024 Urea nitrogen/Creatinine [Mass ratio] 39.9 mg/mg High 10-20 [facility] Basophil percentageOrdered B y: Ivan Nugent on 09-22-2024 Basophils/100 WBC (Bld) 0.0 % 0-1 [facility] Bilirubin, totalOrdered By: Ivan Nugent on 09-22-2024 Bilirubin [Mass/Vol] 0.72 mg/dL 0.00-1.30 [facility] Blood manual differential co mment interpretation (narrative result)Ordered By: Ivan Nugent on 09-22-2024 Manual differential comment Regino (Bld) [Interp] SCANNED [facility] CBC W/Diff, Automatedon 09-05 Anisocytosis Ql (Bld) 2+ Normal [facility] Comment on above: Performed By: #### L 100.0100, L500.4050 ####[facility] [address] [place], [address] ATYPICAL LYMPH 1+ Normal [facility] Comment on above: Performed By: #### L 100.0100, L500.4050 ####[facility] [address] [place], [address] SMEAR COMMENT SCANNED Normal [facility] Comment on above: Performed By: #### L 100.0100, L500.4050 ####[facility] [address] [place], [address] Carbon dioxide, total [Moles /volume] in Central venous bloodOrdered By: Ivan Nugent on 09-22-2024 CO2 [Moles/Vol] 17.9 mmol/L Low 21.0-32.0 [facility] Chloride assayOrdered By: Laura Nugent on 09-22-2024 Chloride [Moles/Vol] 110 mmol/L High 98-108 [facility] Comprehensive Metabolic Prof ilon 09-22-2024 Albumin [Mass/Vol] 3.0 g/dL Low 3.4-4.8 [facility] Comment on above: Performed By: #### L 100.0100, L500.4050 ####[facility] [address] [place], [address] Albumin/Globulin [Mass ratio] 1.3 {ratio} Normal 0.9-2.4 [facility] Comment on above: Performed By: #### L 100.0100, L500.4050 ####[facility] [address] [place], [address] ALK PHOS 156 U/L High 40-129 [facility] Comment on above: Performed By: #### L 100.0100, L500.4050 ####[facility] [address] [place], [address] ALT [Catalytic activity/Vol] 40 U/L Normal <=46 [facility] Comment on above: Performed By: #### L 100.0100, L500.4050 ####[facility] [address] [place], [address] AST [Catalytic activity/Vol] 44 U/L High <=37 [facility] Comment on above: Performed By: #### L 100.0100, L500.4050 ####[facility] [address] [place], [address] Bilirubin [Mass/Vol] 0.72 mg/dL Normal 0.00-1.30 [facility] Comment on above: Performed By: #### L 100.0100, L500.4050 ####[facility] [address] [place], [address] BUN/CRE 39.9 RATIO High 10-20 [facility] Comment on above: Performed By: #### L 100.0100, L500.4050 ####[facility] [address] [place], [address] Calcium [Mass/Vol] 7.7 mg/dL Normal 7.6-11.0 [facility] Comment on above: Performed By: #### L 100.0100, L500.4050 ####[facility] [address] [place], [address] Chloride [Moles/Vol] 110 mmol/L High 98-108 [facility] Comment on above: Performed By: #### L 100.0100, L500.4050 ####[facility] [address] [place], [address] CO2 [Moles/Vol] 17.9 mmol/L Low 21.0-32.0 [facility] Comment on above: Performed By: #### L 100.0100, L500.4050 ####[facility] [address] [place], [address] Creatinine [Mass/Vol] 0.77 mg/dL Normal 0.70-1.20 [facility] Comment on above: Performed By: #### L 100.0100, L500.4050 ####[facility] [address] [place], [address] ECRCL 76.43 ml/min Normal 50-250 [facility] Comment on above: Performed By: #### L 100.0100, L500.4050 ####[facility] [address] [place], [address] GAP 10 Normal 5-15 [facility] Comment on above: Performed By: #### L 100.0100, L500.4050 ####[facility] [address] [place], [address] GFR/1.73 sq M.predicted among non-blacks MDRD (S/P/Bld) [Vol rate/Area] 96 mL/min/{1.73_m2} Normal >60 [facility] Comment on above: Result Comment: mL/m in/1.73m2 CKD-EPI Creatinine Equation (2020) Performed By: #### L 100.0100, L500.4050 ####[facility] [address] [place], [address] Globulin (S) [Mass/Vol] 2.4 g/dL Normal 2.2-4.2 [facility] Comment on above: Performed By: #### L 100.0100, L500.4050 ####[facility] [address] [place], [address] Glucose [Mass/Vol] 108 mg/dL High 70-99 [facility] Comment on above: Performed By: #### L 100.0100, L500.4050 ####[facility] [address] [place], [address] Potassium [Moles/Vol] 4.0 mmol/L Normal 3.3-5.1 [facility] Comment on above: Performed By: #### L 100.0100, L500.4050 ####[facility] [address] [place], [address] Sodium [Moles/Vol] 139 mmol/L Normal 133-145 [facility] Comment on above: Performed By: #### L 100.0100, L500.4050 ####[facility] [address] [place], [address] T PROT 5.5 g/dL Low 5.9-8.4 [facility] Comment on above: Performed By: #### L 100.0100, L500.4050 ####[facility] [address] [place], [place], [address] Urea nitrogen [Mass/Vol] 31 mg/dL High 4-19 [facility] Comment on above: Performed By: #### L 100.0100, L500.4050 ####[facility] [address] [place], [place], [address] Discharge Instructionon 09-05 Discharge Instruction Normal [facility] Eosinophil percentageOrdered By: Ivan Nugent on 09-22-2024 Eosinophils/100 WBC (Bld) 0.9 % 0-5 [facility] Erythrocyte distribution wid th ratioOrdered By: Ivan Nugent on 09-22-2024 Erythrocyte distribution width (RBC) [Ratio] 20.4 % High 11.6-14.6 [facility] Erythrocyte distribution wid th standard deviationOrdered By: Ivan Nugent on 09-22-2024 Erythrocyte distribution width (RBC) [Ratio] 61.1 fl High 35.1-43.9 [facility] Glomerular filtration rate ( GFR) estimation/1.73 sq m using serum, plasma, or whole bOrdered By: Ivan Nugent on 09-22-2024 GFR/1.73 sq M.predicted among non-blacks MDRD (S/P/Bld) [Vol rate/Area] 96 mL/min/{1.73_m2} >60 [facility] Comment on above: mL/min/1.73m2 CKD-EP I Creatinine Equation (2020) Hematocrit Auto (Bld) [Volum e fraction]Ordered By: Ivan Nugent on 09-22-2024 Hematocrit (Bld) [Volume fraction] 29.3 % Low 40-54 [facility] Hemoglobin measurementOrdere d By: Ivan Nugent on 09-22-2024 Hemoglobin (Bld) [Mass/Vol] 9.2 g/dL Low 13.0-16.5 [facility] Immature granulocytes/100 WB C Auto (Bld)Ordered By: Ivan Nugent on 09-22-2024 Immature granulocytes/100 WBC (Bld) 0.500 % 0.0-0.9 [facility] Comment on above: IG% - Immature Granu locytes (promyelocytes, myelocytes and metamyelocytes) > 1% indicates that a LEFT SHIFT is Present. Laboratory - Chemistry and C hemistry - challengeOrdered By: Ivan Nugent on 09-22-2024 AST [Catalytic activity/Vol] 44 U/L High <38 [facility] Laboratory - Hematology and Cell countsOrdered By: Ivan Nugent on 09-22-2024 Anisocytosis Ql (Bld) 2+ [facility] MCV (mean corpuscular volume ) determinationOrdered By: Ivan Nugent on 09-22-2024 MCV (RBC) [Entitic vol] 81.4 fL 80-94 [facility] Mean corpuscular hemoglobin (MCH) determinationOrdered By: Ivan Nugent on 09-22-2024 MCH (RBC) [Entitic mass] 25.6 pg Low 27.0-32.0 [facility] Mean corpuscular hemoglobin concentration (MCHC) determinationOrdered By: Ivan Nugent on 09-22-2024 MCHC (RBC) [Mass/Vol] 31.4 g/dL Low 32-36 [facility] Mean platelet volume determi nationOrdered By: Ivan Nugent on 09-22-2024 Platelet mean volume (Bld) [Entitic vol] 9.6 fL 6.2-12.0 [facility] Monocyte percentageOrdered B y: Ivan Nugent on 09-22-2024 Monocytes/100 WBC (Bld) 3.5 % 0-10 [facility] Neutrophil percentageOrdered By: Ivan Nugent on 09-22-2024 Neutrophils/100 WBC (Bld) 69.5 % 47-70 [facility] Nucleated red blood cell per centageOrdered By: Ivan Nugent on 09-22-2024 Nucleated RBC/100 WBC (Bld) [Ratio] 0 % 0-5 [facility] Platelet countOrdered By: Laura Nugent on 09-22-2024 Platelets (Bld) [#/Vol] 107 10*3/uL Low 150-450 [facility] Potassium measurement (mass/ volume)Ordered By: Ivan Nugent on 09-22-2024 Potassium (Unsp spec) [Mass/Vol] 4.0 mmol/L 3.3-5.1 [facility] RBC Auto (Bld) [#/Vol]Ordere d By: Ivan Nugent on 09-22-2024 RBC (Bld) [#/Vol] 3.60 10*6/uL Low 4.6-6.2 [facility] Serum creatinine measurement (mass/volume)Ordered By: Ivan Nugent on 09-22-2024 Creatinine [Mass/Vol] 0.77 mg/dL 0.70-1.20 [facility] Serum globulin measurementOr dered By: Ivan Nugent on 09-22-2024 Globulin (S) [Mass/Vol] 2.4 g/dL 2.2-4.2 [facility] Serum glucose measurement (m ass/volume)Ordered By: Ivan Nugnet on 09-22-2024 Glucose [Mass/Vol] 108 mg/dL High 70-99 [facility] Serum or plasma alanine moreno otransferase (ALT) measurementOrdered By: Ivan Nugent on 09-22-2024 ALT [Catalytic activity/Vol] 40 U/L <47 [facility] Serum or plasma albumin manuelito urement (mass/volume)Ordered By: Ivan Nugent on 09-22-2024 Albumin [Mass/Vol] 3.0 g/dL Low 3.4-4.8 [facility] Serum or plasma albumin/glob ulin mass ratioOrdered By: Ivan Nugent on 09-22-2024 Albumin/Globulin [Mass ratio] 1.3 {ratio} 0.9-2.4 [facility] Serum or plasma alkaline francisca sphatase measurementOrdered By: Ivan Nugent on 09-22-2024 ALP [Catalytic activity/Vol] 156 U/L High 40-129 [facility] Serum or plasma calcium manuelito urement (mass/volume)Ordered By: Ivan Nugent on 09-22-2024 Calcium [Mass/Vol] 7.7 mg/dL 7.6-11.0 [facility] Serum or plasma urea nitroge n measurement (mass/volume)Ordered By: Ivan Nugent on 09-22-2024 Urea nitrogen [Mass/Vol] 31 mg/dL High 4-19 [facility] Sodium levelOrdered By: Dhiraj Nugent on 09-22-2024 Sodium [Moles/Vol] 139 mmol/L 133-145 [facility] Total proteinOrdered By: Prasad Nugent on 09-22-2024 Protein [Mass/Vol] 5.5 g/dL Low 5.9-8.4 [facility] Trough vancomycin levelOrder ed By: Ivan Nugent on 09-22-2024 Vancomycin trough [Mass/Vol] 11.2 ug/mL 5.0-15.0 [facility] Comment on above: Recommended goal tro ugh [...] therapy recommended for serious lifethreatening infections include:- Lczhaalyob-Usberqqmhmqj-Ovmbjeykl (Ventilator/Healtcare Associated)-Sepsis PLEASE CONTACT PHARMACY SERVICES (#2505) FOR INTERPRETATIONOF RESULTS. Vancomycin, Trough Levelon 0 09-22-2024 VANCO, TROUGH 11.2 ug/mL Normal 5.0-15.0 [facility] Comment on above: Order Comment: Comme nts: Trough to be drawn 30 mins prior to scheduled [id number] Result Comment: Miles mmended goal trough ranges are generally 10-15 mcg/mlfor less severe/complicated infections such as cellulitisor UTI and 15-20 mcg/ml for more severe/complicatedinfections such as bacteremia/sepsis, osteomyelitis,pneumonia or meningitis. Goal trough ranges should takeinto account indication, patient-specific factors andorganism DAILY.VANCOMYCIN STANDARED DRUG THERAPY TROUGH LEVEL: 5.0 - 15.0 mg/LVANCOMYCIN HIGH INTENSITY THERAPY TROUGH LEVEL: 15.0 - 20.0 mg/LHigh Intensity therapy recommended for serious lifethreatening infections include:- Wpajnawqcj-Aceimtkpqatx-Xbralnipa (Ventilator/Healtcare Associated)-SepsisPLEASE CONTACT PHARMACY SERVICES (#9133) FOR INTERPRETATIONOF RESULTS. Performed By: #### L 501.8820 ####[facility] [address] [place], [address] White blood cell (WBC) count Ordered By: Ivan Nugent on 09-22-2024 WBC (Bld) [#/Vol] 4.3 10*3/uL Low 4.4-11.0 [facility] Abdomen Limitedon 09-21-2024 Abdomen Limited Normal [facility] CBC W/Diff, Automatedon 09-05 Anisocytosis Ql (Bld) 2+ Normal [facility] Comment on above: Performed By: #### L 100.0100, L500.4050 ####[facility] [address] [place], [address] ATYPICAL LYMPH 1+ Normal [facility] Comment on above: Performed By: #### L 100.0100, L500.4050 ####[facility] [address] [place], [address] PLT EST MKD DEC Normal ADEQ [facility] Comment on above: Performed By: #### L 100.0100, L500.4050 ####[facility] [address] [place], [address] SMEAR COMMENT SCANNED Normal [facility] Comment on above: Performed By: #### L 100.0100, L500.4050 ####[facility] [address] [place], [address] CNPNon 09-21-2024 CNPN Normal [facility] aristeo 09-21-2024 Albumin [Mass/Vol] 3.0 g/dL Low 3.4-4.8 [facility] Comment on above: Performed By: #### L 100.0100, L500.4050 ####[facility] [address] [place], [address] Albumin/Globulin [Mass ratio] 1.1 {ratio} Normal 0.9-2.4 [facility] Comment on above: Performed By: #### L 100.0100, L500.4050 ####[facility] [address] [place], [address] ALK PHOS 167 U/L High 40-129 [facility] Comment on above: Performed By: #### L 100.0100, L500.4050 ####[facility] [address] [place], [address] ALT [Catalytic activity/Vol] 33 U/L Normal <=46 [facility] Comment on above: Performed By: #### L 100.0100, L500.4050 ####[facility] [address] [place], [address] AST [Catalytic activity/Vol] 40 U/L High <=37 [facility] Comment on above: Performed By: #### L 100.0100, L500.4050 ####[facility] [address] [place], [address] Bilirubin [Mass/Vol] 0.70 mg/dL Normal 0.00-1.30 [facility] Comment on above: Performed By: #### L 100.0100, L500.4050 ####[facility] [address] [place], [address] BUN/CRE 40.7 RATIO High 10-20 [facility] Comment on above: Performed By: #### L 100.0100, L500.4050 ####[facility] [address] [place], [address] Calcium [Mass/Vol] 7.5 mg/dL Low 7.6-11.0 [facility] Comment on above: Performed By: #### L 100.0100, L500.4050 ####[facility] [address] [place], [address] Chloride [Moles/Vol] 113 mmol/L High 98-108 [facility] Comment on above: Performed By: #### L 100.0100, L500.4050 ####[facility] [address] [place], [address] CO2 [Moles/Vol] 16.5 mmol/L Low 21.0-32.0 [facility] Comment on above: Performed By: #### L 100.0100, L500.4050 ####[facility] [address] [place], [address] Creatinine [Mass/Vol] 0.86 mg/dL Normal 0.70-1.20 [facility] Comment on above: Performed By: #### L 100.0100, L500.4050 ####[facility] [address] [place], [address] ECRCL 71.09 ml/min Normal 50-250 [facility] Comment on above: Performed By: #### L 100.0100, L500.4050 ####[facility] [address] [place], [address] GAP 11 Normal 5-15 [facility] Comment on above: Performed By: #### L 100.0100, L500.4050 ####[facility] [address] [place], [address] GFR/1.73 sq M.predicted among non-blacks MDRD (S/P/Bld) [Vol rate/Area] 93 mL/min/{1.73_m2} Normal >60 [facility] Comment on above: Result Comment: mL/m in/1.73m2 CKD-EPI Creatinine Equation (2020) Performed By: #### L 100.0100, L500.4050 ####[facility] [address] [place], [address] Globulin (S) [Mass/Vol] 2.6 g/dL Normal 2.2-4.2 [facility] Comment on above: Performed By: #### L 100.0100, L500.4050 ####[facility] [address] [place], [address] Glucose [Mass/Vol] 123 mg/dL High 70-99 [facility] Comment on above: Performed By: #### L 100.0100, L500.4050 ####[facility] [address] [place], [address] Potassium [Moles/Vol] 4.0 mmol/L Normal 3.3-5.1 [facility] Comment on above: Performed By: #### L 100.0100, L500.4050 ####[facility] [address] [place], [address] Sodium [Moles/Vol] 140 mmol/L Normal 133-145 [facility] Comment on above: Performed By: #### L 100.0100, L500.4050 ####[facility] [address] [place], [address] T PROT 5.6 g/dL Low 5.9-8.4 [facility] Comment on above: Performed By: #### L 100.0100, L500.4050 ####[facility] [address] [place], [address] Urea nitrogen [Mass/Vol] 35 mg/dL High 4-19 [facility] Comment on above: Performed By: #### L 100.0100, L500.4050 ####[facility] [address] [place], [address] Consultation - Surgicalon Consultation - Surgical Normal [facility] Electrocardiogram reportOrde red By: Timmy Sood on 09-21-2024 EKG study [facility] [address] [place] [address] 12 Lead EKG 09/18/24 1234 MR#: [id number] Acct: [id number] Name: LUTHER CASTILLO II Rep #:[id number] : 1955 69 From: Timmy Sood MD Attending Dr: Dr. Ivan Nugent MD Status: ADM IN Ordering Dr: Augustin Carney MD Date: Location: [facility] [place] Sex: M C Admitted: 09/18/24 Test Reason : DIZZINESS Blood Pressure : */* mmHG Vent. Rate : 90 BPM Atrial Rate : 90 BPM P-R Int : 134 ms QRS Dur : 76 ms QT Int : 366 ms P-R-T Axes : 44 -23 38 degrees QTcB Int : 447 ms Normal sinus rhythm Normal ECG Confirmed by TIMMY SOOD MD ([id number]), associate entertainment editor DERREK PAN ([id number]) on 58:17:48 AM Referred By: CRIS/ROMMEL Confirmed By: TIMMY SOOD MD 09/21/24 0817 Date _ Timmy Sood MD CC: Dr. López Lilly MD; Dr. Augustin Carney MD; Dr. Ivan Nugent MD ~ Signed [facility] Other Phone: Platelet estimateOrdered By: Ivan Nugent on 09-21-2024 Platelets LM Ql (Bld) MKD DEC ADEQ [facility] Vancomycin, Trough Levelon 0 09-21-2024 VANCO, TROUGH 8.9 ug/mL Normal 5.0-15.0 [facility] Comment on above: Order Comment: Comme nts: Trough to be drawn 30 mins prior to scheduled [id number] Result Comment: Miles mmended goal trough ranges are generally 10-15 mcg/mlfor less severe/complicated infections such as cellulitisor UTI and 15-20 mcg/ml for more severe/complicatedinfections such as bacteremia/sepsis, osteomyelitis,pneumonia or meningitis. Goal trough ranges should takeinto account indication, patient-specific factors andorganism DAILY.VANCOMYCIN STANDARED DRUG THERAPY TROUGH LEVEL: 5.0 - 15.0 mg/LVANCOMYCIN HIGH INTENSITY THERAPY TROUGH LEVEL: 15.0 - 20.0 mg/LHigh Intensity therapy recommended for serious lifethreatening infections include:- Qrivibscel-Joncrvmgpoty-Yzwpkmucf (Ventilator/Healtcare Associated)-SepsisPLEASE CONTACT PHARMACY SERVICES (#6500) FOR INTERPRETATIONOF RESULTS. Performed By: #### L 501.8820 ####[facility] [address] [place], [address] BRCon 09-20-2024 RC Normal [facility] Comment on above: Result Comment: [id number] ON RC TRANSFUSED 09/20/24 [id number] BN RC TRANSFUSED 09/20/24 1232 Performed By: #### B TS, M200.1000, [facility] ####[facility] [address] [place], [address] Blood cultureOrdered By: Prasad Nugent on 09-20-2024 Bacteria identified Cx Nom (Bld) No growth in 5 days. [facility] CBC W/Diff, Automatedon 09-05 OVALOCYTE 1+ Normal [facility] Comment on above: Performed By: #### L 500.4050, L100.0100 ####[facility] [address] [place], [address] ALEXX CELLS 1+ Normal [facility] Comment on above: Performed By: #### L 500.4050, L100.0100 ####[facility] [address] [place], [address] HYPOCHROMASIA 2+ Normal [facility] Comment on above: Performed By: #### L 500.4050, L100.0100 ####[facility] [address] [place], [address] MICROCYTIC 2+ Normal [facility] Comment on above: Performed By: #### L 500.4050, L100.0100 ####[facility] [address] [place], [address] Anisocytosis Ql (Bld) 3+ Normal [facility] Comment on above: Performed By: #### L 500.4050, L100.0100 ####[facility] [address] [place], [address] SMEAR COMMENT SCANNED Normal [facility] Comment on above: Performed By: #### L 500.4050, L100.0100 ####[facility] [address] [place], [address] Comprehensive Metabolic Prof ilon 09-20-2024 Albumin [Mass/Vol] 2.7 g/dL Low 3.4-4.8 [facility] Comment on above: Performed By: #### L 500.4050, L100.0100 ####[facility] [address] [place], [address] Albumin/Globulin [Mass ratio] 1.1 {ratio} Normal 0.9-2.4 [facility] Comment on above: Performed By: #### L 500.4050, L100.0100 ####[facility] [address] [place], [address] ALK PHOS 135 U/L High 40-129 [facility] Comment on above: Performed By: #### L 500.4050, L100.0100 ####[facility] [address] [place], [address] ALT [Catalytic activity/Vol] 20 U/L Normal <=46 [facility] Comment on above: Performed By: #### L 500.4050, L100.0100 ####[facility] [address] [place], [address] AST [Catalytic activity/Vol] 30 U/L Normal <=37 [facility] Comment on above: Performed By: #### L 500.4050, L100.0100 ####[facility] [address] [place], [address] Bilirubin [Mass/Vol] 0.47 mg/dL Normal 0.00-1.30 [facility] Comment on above: Performed By: #### L 500.4050, L100.0100 ####[facility] [address] [place], [address] BUN/CRE 34.9 RATIO High 10-20 [facility] Comment on above: Performed By: #### L 500.4050, L100.0100 ####[facility] [address] [place], [address] Calcium [Mass/Vol] 7.0 mg/dL Low 7.6-11.0 [facility] Comment on above: Performed By: #### L 500.4050, L100.0100 ####[facility] [address] [place], [address] Chloride [Moles/Vol] 112 mmol/L High 98-108 [facility] Comment on above: Performed By: #### L 500.4050, L100.0100 ####[facility] [address] [place], [address] CO2 [Moles/Vol] 16.0 mmol/L Low 21.0-32.0 [facility] Comment on above: Performed By: #### L 500.4050, L100.0100 ####[facility] [address] [place], [address] Creatinine [Mass/Vol] 0.96 mg/dL Normal 0.70-1.20 [facility] Comment on above: Performed By: #### L 500.4050, L100.0100 ####[facility] [address] [place], [address] ECRCL 63.69 ml/min Normal 50-250 [facility] Comment on above: Performed By: #### L 500.4050, L100.0100 ####[facility] [address] [place], [address] GAP 10 Normal 5-15 [facility] Comment on above: Performed By: #### L 500.4050, L100.0100 ####[facility] [address] [place], [address] GFR/1.73 sq M.predicted among non-blacks MDRD (S/P/Bld) [Vol rate/Area] 85 mL/min/{1.73_m2} Normal >60 [facility] Comment on above: Result Comment: mL/m in/1.73m2 CKD-EPI Creatinine Equation (2020) Performed By: #### L 500.4050, L100.0100 ####[facility] [address] [place], [address] Globulin (S) [Mass/Vol] 2.5 g/dL Normal 2.2-4.2 [facility] Comment on above: Performed By: #### L 500.4050, L100.0100 ####[facility] [address] [place], [address] Glucose [Mass/Vol] 175 mg/dL High 70-99 [facility] Comment on above: Performed By: #### L 500.4050, L100.0100 ####[facility] [address] [place], [address] Potassium [Moles/Vol] 3.9 mmol/L Normal 3.3-5.1 [facility] Comment on above: Performed By: #### L 500.4050, L100.0100 ####[facility] [address] [place], [address] Sodium [Moles/Vol] 138 mmol/L Normal 133-145 [facility] Comment on above: Performed By: #### L 500.4050, L100.0100 ####[facility] [address] [place], [address] T PROT 5.2 g/dL Low 5.9-8.4 [facility] Comment on above: Performed By: #### L 500.4050, L100.0100 ####[facility] [address] [place], [address] Urea nitrogen [Mass/Vol] 33 mg/dL High 4-19 [facility] Comment on above: Performed By: #### L 500.4050, L100.0100 ####[facility] [address] [place], [address] Crenated erythrocyte detecti on by light microscopyOrdered By: Ivan Nugent on 09-20-2024 Christiana cells LM Ql (Bld) 1+ [facility] Hypochromatic red blood cell detectionOrdered By: Ivan Nugent on 09-20-2024 Hypochromia Ql (Bld) 2+ [facility] Ovalocyte detectionOrdered B y: Ivan Nugent on 09-20-2024 Ovalocytes LM Ql (Bld) 1+ [facility] Type AND Screenon 09-20-2024 Ab SCREEN GEL Negative Normal [facility] Comment on above: Order Comment: CMV N EG? NNumber of units to transfuse: 2Reason for Ordering Blood: ChronicAre the blood/blood products to be transfused? YIs the patient having/had surgery? NWhen Kailey Performed By: #### B TS, M200.1000, BR ####[facility] [address] [place], [address] Abdomen/Pelvis WITH Contrast on 09-19-2024 Abdomen/Pelvis WITH Contrast Normal [facility] Basic Metabolic Profile (BMP )on 09-19-2024 BUN/CRE 23.9 RATIO High 10-20 [facility] Comment on above: Performed By: #### L 500.2500, L100.0100 ####[facility] [address] [place], [address] Calcium [Mass/Vol] 7.3 mg/dL Low 7.6-11.0 [facility] Comment on above: Performed By: #### L 500.2500, L100.0100 ####[facility] [address] [place], [address] Chloride [Moles/Vol] 111 mmol/L High 98-108 [facility] Comment on above: Performed By: #### L 500.2500, L100.0100 ####[facility] [address] [place], [address] CO2 [Moles/Vol] 15.1 mmol/L Low 21.0-32.0 [facility] Comment on above: Performed By: #### L 500.2500, L100.0100 ####[facility] [address] [place], [address] Creatinine [Mass/Vol] 1.32 mg/dL High 0.70-1.20 [facility] Comment on above: Performed By: #### L 500.2500, L100.0100 ####[facility] [address] [place], [address] ECRCL 46.32 ml/min Low 50-250 [facility] Comment on above: Performed By: #### L 500.2500, L100.0100 ####[facility] [address] [place], [address] GAP 13 Normal 5-15 [facility] Comment on above: Performed By: #### L 500.2500, L100.0100 ####[facility] [address] [place], [address] GFR/1.73 sq M.predicted among non-blacks MDRD (S/P/Bld) [Vol rate/Area] 58 mL/min/{1.73_m2} Low >60 [facility] Comment on above: Result Comment: mL/m in/1.73m2 CKD-EPI Creatinine Equation (2020) Performed By: #### L 500.2500, L100.0100 ####[facility] [address] [place], [address] Glucose [Mass/Vol] 112 mg/dL High 70-99 [facility] Comment on above: Performed By: #### L 500.2500, L100.0100 ####[facility] [address] [place], [address] Potassium [Moles/Vol] 4.1 mmol/L Normal 3.3-5.1 [facility] Comment on above: Performed By: #### L 500.2500, L100.0100 ####[facility] [address] [place], [address] Sodium [Moles/Vol] 139 mmol/L Normal 133-145 [facility] Comment on above: Performed By: #### L 500.2500, L100.0100 ####[facility] [address] [place], [address] Urea nitrogen [Mass/Vol] 32 mg/dL High 4-19 [facility] Comment on above: Performed By: #### L 500.2500, L100.0100 ####[facility] [address] [place], [address] Bilirubin directOrdered By: Ivan Nugent on 09-19-2024 Bilirubin.direct [Mass/Vol] 1.15 mg/dL High 0.00-0.30 [facility] CBC W/Diff, Automatedon 09-05 HYPOCHROMASIA 2+ Normal [facility] Comment on above: Performed By: #### L 500.2500, L100.0100 ####[facility] [address] [place], [address] ALEXX CELLS 1+ Normal [facility] Comment on above: Performed By: #### L 500.2500, L100.0100 ####[facility] [address] [place], [address] MICROCYTIC 2+ Normal [facility] Comment on above: Performed By: #### L 500.2500, L100.0100 ####[facility] [address] [place], [address] TEAR DROP RARE Normal [facility] Comment on above: Performed By: #### L 500.2500, L100.0100 ####[facility] [address] [place], [address] OVALOCYTE 1+ Normal [facility] Comment on above: Performed By: #### L 500.2500, L100.0100 ####[facility] [address] [place], [address] Anisocytosis Ql (Bld) 3+ Normal [facility] Comment on above: Performed By: #### L 500.2500, L100.0100 ####[facility] [address] [place], [address] PLT EST SLT DEC Normal ADEQ [facility] Comment on above: Performed By: #### L 500.2500, L100.0100 ####[facility] [address] [place], [address] SMEAR COMMENT SCANNED Normal [facility] Comment on above: Performed By: #### L 500.2500, L100.0100 ####[facility] [address] [place], [address] CDIFF (PCR)on 09-19-2024 CDIFF Normal [facility] Comment on above: Performed By: #### M 100.637, M100.6796 ####[facility] [address] [place], [address] Clostridium difficile detect ion by polymerase chain reactionOrdered By: Ivan Nugent on 09-19-2024 C. difficile DNA IMAN+probe Ql (Unsp spec) [facility] ENTERIC PATHOGEN PANEL STOOL on 09-19-2024 EP PANEL Normal [facility] Comment on above: Performed By: #### M 100.637, M100.6796 ####[facility] [address] [place], [address] Liver Profileon 09-19-2024 Albumin [Mass/Vol] 2.8 g/dL Low 3.4-4.8 [facility] Comment on above: Performed By: #### L 500.3400 ####[facility] [address] [place], [address] ALK PHOS 169 U/L High 40-129 [facility] Comment on above: Performed By: #### L 500.3400 ####[facility] [address] [place], [address] ALT [Catalytic activity/Vol] 25 U/L Normal <=46 [facility] Comment on above: Performed By: #### L 500.3400 ####[facility] [address] [place], [address] AST [Catalytic activity/Vol] 39 U/L High <=37 [facility] [facility] Comment on above: Performed By: #### L 500.3400 ####[facility] [address] [place], [address] Bilirubin [Mass/Vol] 1.56 mg/dL High 0.00-1.30 [facility] Comment on above: Performed By: #### L 500.3400 ####[facility] [address] [place], [address] Bilirubin.direct [Mass/Vol] 1.15 mg/dL High 0.00-0.30 [facility] Comment on above: Performed By: #### L 500.3400 ####[facility] [address] [place], [address] Globulin (S) [Mass/Vol] 2.4 g/dL Normal 2.2-4.2 [facility] Comment on above: Performed By: #### L 500.3400 ####[facility] [address] [place], [address] T PROT 5.2 g/dL Low 5.9-8.4 [facility] Comment on above: Performed By: #### L 500.3400 ####[facility] [address] [place], [address] Teardrop cell detectionOrder ed By: Ivan Nugent on 09-19-2024 Dacrocytes LM Ql (Bld) RARE [facility] Urine Cultureon 09-19-2024 URC Culture exhibits no growth. Normal [facility] Comment on above: Performed By: #### M 100.2200, L400.0001, M100.678 ####[facility] [address] [place], [address] 12 Lead EKGon 09-18-2024 12 Lead EKG Normal [facility] Absolute lymphocyte countOrd ered By: Augustin Carney on 09-18-2024 Lymphocytes Auto (Unsp spec) [#/Vol] 0.47 10*3/uL Low 0.83-4.51 [facility] Absolute neutrophil countOrd ered By: Augustin Carney on 09-18-2024 Neutrophils (Bld) [#/Vol] 3.8 10*3/uL 2.0-7.7 [facility] Activated partial thrombopla stin time (aPTT) in platelet poor plasma by coagulation aOrdered By: Augustin Carney on 09-18-2024 aPTT Coag (PPP) [Time] 36.6 s High 24.1-36.2 [facility] Anion gap in Serum or Plasma Ordered By: Augustin Carney on 09-18-2024 Anion gap [Moles/Vol] 14 mmol/L 5-15 [facility] Automated lymphocyte count a s percentage of total leukocytesOrdered By: Augustin Carney on 09-18-2024 Lymphocytes/100 WBC Auto (Unsp spec) 10.7 % Low 19-41 [facility] BUN/creatinine ratioOrdered By: Augustin Carney on 09-18-2024 Urea nitrogen/Creatinine [Mass ratio] 20.1 mg/mg High 10-20 [facility] Basophil percentageOrdered B y: Augustin Carney on 09-18-2024 Basophils/100 WBC (Bld) 0.2 % 0-1 [facility] Bilirubin Test strip Ql (U)O rdered By: Augustin Carney on 09-18-2024 Bilirubin Ql (U) 1 mg/dL High Negative [facility] Comment on above: COLOR OF URINE MAY A FFECT DIPSTICK RESULTS. Bilirubin, totalOrdered By: Augustin Carney on 09-18-2024 Bilirubin [Mass/Vol] 1.76 mg/dL High 0.00-1.30 [facility] Blood cultureOrdered By: Ayad Carney on 09-18-2024 Bacteria identified Cx Nom (Bld) Streptococcus intermedius Abnormal [facility] Bacteria identified Cx Nom (Bld) Haemophilus parainfluenzae Abnormal [facility] Bacteria identified Cx Nom (Bld) Positive Abnormal [facility] Bacteria identified Cx Nom (Bld) Negative Abnormal [facility] CBC W/Diff, Automatedon 09-05 Anisocytosis Ql (Bld) 1+ Normal [facility] Comment on above: Performed By: #### L 300.3900, L503.6005, L300.4310, L100.0100, L500.4050, M200.1000 ####[facility] [address] [place], [address] HYPOCHROMASIA 1+ Normal [facility] Comment on above: Performed By: #### L 300.3900, L503.6005, L300.4310, L100.0100, L500.4050, M200.1000 ####[facility] [address] [place], [address] Carbon dioxide, total [Moles /volume] in Central venous bloodOrdered By: Augustin Carney on 09-18-2024 CO2 [Moles/Vol] 20.3 mmol/L Low 21.0-32.0 [facility] Chest 1 View (Portable)on Chest 1 View (Portable) Normal [facility] Chloride assayOrdered By: Derrick Carney on 09-18-2024 Chloride [Moles/Vol] 102 mmol/L 98-108 [facility] Comprehensive Metabolic Prof ilon 09-18-2024 Albumin [Mass/Vol] 3.3 g/dL Low 3.4-4.8 [facility] Comment on above: Performed By: #### L 300.3900, L503.6005, L300.4310, L100.0100, L500.4050, M200.1000 ####[facility] [address] [place], [address] Albumin/Globulin [Mass ratio] 1.2 {ratio} Normal 0.9-2.4 [facility] Comment on above: Performed By: #### L 300.3900, L503.6005, L300.4310, L100.0100, L500.4050, M200.1000 ####[facility] [address] [place], [address] ALK PHOS 152 U/L High 40-129 [facility] Comment on above: Performed By: #### L 300.3900, L503.6005, L300.4310, L100.0100, L500.4050, M200.1000 ####[facility] [address] [place], [address] ALT [Catalytic activity/Vol] 20 U/L Normal <=46 [facility] Comment on above: Performed By: #### L 300.3900, L503.6005, L300.4310, L100.0100, L500.4050, M200.1000 ####[facility] [address] [place], [address] AST [Catalytic activity/Vol] 28 U/L Normal <=37 [facility] Comment on above: Performed By: #### L 300.3900, L503.6005, L300.4310, L100.0100, L500.4050, M200.1000 ####[facility] [address] [place], [address] Bilirubin [Mass/Vol] 1.76 mg/dL High 0.00-1.30 [facility] Comment on above: Performed By: #### L 300.3900, L503.6005, L300.4310, L100.0100, L500.4050, M200.1000 ####[facility] [address] [place], [address] BUN/CRE 20.1 RATIO High 10-20 [facility] Comment on above: Performed By: #### L 300.3900, L503.6005, L300.4310, L100.0100, L500.4050, M200.1000 ####[facility] [address] [place], [address] Calcium [Mass/Vol] 8.6 mg/dL Normal 7.6-11.0 [facility] Comment on above: Performed By: #### L 300.3900, L503.6005, L300.4310, L100.0100, L500.4050, M200.1000 ####[facility] [address] [place], [address] Chloride [Moles/Vol] 102 mmol/L Normal 98-108 [facility] Comment on above: Performed By: #### L 300.3900, L503.6005, L300.4310, L100.0100, L500.4050, M200.1000 ####[facility] [address] [place], [address] CO2 [Moles/Vol] 20.3 mmol/L Low 21.0-32.0 [facility] Comment on above: Performed By: #### L 300.3900, L503.6005, L300.4310, L100.0100, L500.4050, M200.1000 ####[facility] [address] [place], [address] Creatinine [Mass/Vol] 2.13 mg/dL High 0.70-1.20 [facility] Comment on above: Performed By: #### L 300.3900, L503.6005, L300.4310, L100.0100, L500.4050, M200.1000 ####[facility] [address] [place], [address] ECRCL 30.37 ml/min Low 50-250 [facility] Comment on above: Performed By: #### L 300.3900, L503.6005, L300.4310, L100.0100, L500.4050, M200.1000 ####[facility] [address] [place], [address] GAP 14 Normal 5-15 [facility] Comment on above: Performed By: #### L 300.3900, L503.6005, L300.4310, L100.0100, L500.4050, M200.1000 ####[facility] [address] [place], [address] GFR/1.73 sq M.predicted among non-blacks MDRD (S/P/Bld) [Vol rate/Area] 32 mL/min/{1.73_m2} Low >60 [facility] Comment on above: Result Comment: mL/m in/1.73m2 CKD-EPI Creatinine Equation (2020) Performed By: #### L 300.3900, L503.6005, L300.4310, L100.0100, L500.4050, M200.1000 ####[facility] [address] [place], [address] Globulin (S) [Mass/Vol] 2.8 g/dL Normal 2.2-4.2 [facility] Comment on above: Performed By: #### L 300.3900, L503.6005, L300.4310, L100.0100, L500.4050, M200.1000 ####[facility] [address] [place], [address] Glucose [Mass/Vol] 75 mg/dL Normal 70-99 [facility] Comment on above: Performed By: #### L 300.3900, L503.6005, L300.4310, L100.0100, L500.4050, M200.1000 ####[facility] [address] [place], [address] Potassium [Moles/Vol] 4.1 mmol/L Normal 3.3-5.1 [facility] Comment on above: Performed By: #### L 300.3900, L503.6005, L300.4310, L100.0100, L500.4050, M200.1000 ####[facility] [address] [place], [address] Sodium [Moles/Vol] 137 mmol/L Normal 133-145 [facility] Comment on above: Performed By: #### L 300.3900, L503.6005, L300.4310, L100.0100, L500.4050, M200.1000 ####[facility] [address] [place], [place], [id number] T PROT 6.1 g/dL Normal 5.9-8.4 [facility] Comment on above: Performed By: #### L 300.3900, L503.6005, L300.4310, L100.0100, L500.4050, M200.1000 ####[facility] [address] [place], [address] Urea nitrogen [Mass/Vol] 43 mg/dL High 4-19 [facility] Comment on above: Performed By: #### L 300.3900, L503.6005, L300.4310, L100.0100, L500.4050, M200.1000 ####[facility] [address] [place], [place], [id number] Emergency Department Summary on 09-18-2024 Emergency Department Summary Normal [facility] Eosinophil percentageOrdered By: Augustin Carney on 09-18-2024 Eosinophils/100 WBC (Bld) 0.5 % 0-5 [facility] Erythrocyte distribution wid th ratioOrdered By: Augustin Carney on 09-18-2024 Erythrocyte distribution width (RBC) [Ratio] 21.4 % High 11.6-14.6 [facility] Erythrocyte distribution wid th standard deviationOrdered By: Augustin Carney on 09-18-2024 Erythrocyte distribution width (RBC) [Ratio] 62.0 fl High 35.1-43.9 [facility] Glomerular filtration rate ( GFR) estimation/1.73 sq m using serum, plasma, or whole bOrdered By: Augustin Carney on 09-18-2024 GFR/1.73 sq M.predicted among non-blacks MDRD (S/P/Bld) [Vol rate/Area] 32 mL/min/{1.73_m2} Low >60 [facility] Comment on above: mL/min/1.73m2 CKD-EP I Creatinine Equation (2020) H AND P Exam - Hospitaliston 09-18-2024 H&P Exam - Hospitalist Normal [facility] Hematocrit Auto (Bld) [Volum e fraction]Ordered By: Augustin Carney on 09-18-2024 Hematocrit (Bld) [Volume fraction] 29.3 % Low 40-54 [facility] Hemoglobin measurementOrdere d By: Augustin Carney on 09-18-2024 Hemoglobin (Bld) [Mass/Vol] 8.6 g/dL Low 13.0-16.5 [facility] Hyaline casts LM.LPF (Urine sed) [#/Area]Ordered By: Augustin Carney on 09-18-2024 Hyaline casts (Urine sed) [#/Area] 0 /[LPF] 0-5 [facility] Hypochromatic red blood cell detectionOrdered By: Augustin Carney on 09-18-2024 Hypochromia Ql (Bld) 1+ [facility] Immature granulocytes/100 WB C Auto (Bld)Ordered By: Augustin Carney on 09-18-2024 Immature granulocytes/100 WBC (Bld) 0.200 % 0.0-0.9 [facility] Comment on above: IG% - Immature Granu locytes (promyelocytes, myelocytes and metamyelocytes) > 1% indicates that a LEFT SHIFT is Present. Influenza virus A and B and SARS-CoV-2 (COVID-19) and Respiratory syncytial virus RNAOrdered By: Augustin Carney on 09-18-2024 SARS-CoV-2 (COVID-19) RNA IMAN+probe Ql (Unsp spec) [facility] International normalized rat io (INR) calculationOrdered By: Augustin Carney on 09-18-2024 INR Coag (Bld) [Relative time] 1.4 {INR} [facility] Ketones Test strip Ql (U)Ord ered By: Augustin Carney on 09-18-2024 Ketones Ql (U) 5 mg/dl High Negative [facility] L499.0042on 09-18-2024 Trop T High Sen 44 ng/L High <=22 [facility] Comment on above: Performed By: #### L 499.0042 ####[facility] [address] [place], [address] L499.0043on 09-18-2024 Trop T High Sen 41 ng/L High <=22 [facility] Comment on above: Performed By: #### L 499.0043 ####[facility] [address] [place], [address] L501.4021on 09-18-2024 Trop T High Sen 47 ng/L High <=22 [facility] Comment on above: Performed By: #### L 501.4021 ####[facility] [address] [place], [address] Laboratory - Chemistry and C hemistry - challengeOrdered By: Augustin Carney on 09-18-2024 AST [Catalytic activity/Vol] 28 U/L <38 [facility] Laboratory - Hematology and Cell countsOrdered By: Augustin Carney on 09-18-2024 Anisocytosis Ql (Bld) 1+ [facility] Lactic Acidon 09-18-2024 Lactate [Moles/Vol] 2.3 mmol/L Invalid Interpretation Code 0.0-2.0 [facility] Comment on above: Order Comment: Y Result Comment: Crit ical Result(s) Called at: 09/18/2024-14:32 by: Mary Kate Mo.??Results read back by same. Performed By: #### L 300.3900, L503.6005, L300.4310, L100.0100, L500.4050, M200.1000 ####[facility] [address] [place], [address] Lactic acid measurementOrder ed By: Augustin Carney on 09-18-2024 Lactate [Moles/Vol] 1.2 mmol/L Normal 0.0-2.0 [facility] Comment on above: Order Comment: Y Performed By: #### L 503.6005 ####[facility] [address] [place], [address] Lactate [Moles/Vol] 2.3 mmol/L High 0.0-2.0 [facility] Comment on above: Critical Result(s) C alled at: 09/18/2024-14:32 by: Pranav Augustine to Edilma Mo. Results read back by same. M100.678on 09-18-2024 M100.678 Pending SARS-CoV-2 (COVID 19) Negative INFLUENZA A Negative INFLUENZA B Negative RSV PCR Negative Normal [facility] Comment on above: Performed By: #### M 100.2200, L400.0001, M100.678 ####[facility] [address] [place], [place], [id number] MCV (mean corpuscular volume ) determinationOrdered By: Augustin Carney on 09-18-2024 MCV (RBC) [Entitic vol] 80.7 fL 80-94 [facility] Mean corpuscular hemoglobin (MCH) determinationOrdered By: Augustin Carney on 09-18-2024 MCH (RBC) [Entitic mass] 23.7 pg Low 27.0-32.0 [facility] Mean corpuscular hemoglobin concentration (MCHC) determinationOrdered By: Augustin Carney on 09-18-2024 MCHC (RBC) [Mass/Vol] 29.4 g/dL Low 32-36 [facility] Mean platelet volume determi nationOrdered By: Augustin Carney on 09-18-2024 Platelet mean volume (Bld) [Entitic vol] 8.8 fL 6.2-12.0 [facility] Microscopic analysis of urin e for red blood cells (RBC)Ordered By: Augustin Carney on 09-18-2024 Microscopic analysis of urine for red blood cells (RBC) 0 SEEN /hpf 0-5 [facility] Monocyte percentageOrdered B y: Augustin Carney on 09-18-2024 Monocytes/100 WBC (Bld) 0.9 % 0-10 [facility] Mucus LM Ql (Urine sed)Order ed By: Augustin Carney on 09-18-2024 Mucus Ql (Urine sed) 0 SEEN /hpf [facility] Neutrophil percentageOrdered By: Augustin Carney on 09-18-2024 Neutrophils/100 WBC (Bld) 87.5 % High 47-70 [facility] Nitrite Test strip Ql (U)Ord ered By: Augustin Carney on 09-18-2024 Nitrite Ql (U) Negative Negative [facility] Nucleated red blood cell per centageOrdered By: Augustin Carney on 09-18-2024 Nucleated RBC/100 WBC (Bld) [Ratio] 0 % 0-5 [facility] Partial Thromboplast Timeon 09-18-2024 aPTT Coag (Bld) [Time] 36.6 s High 24.1-36.2 [facility] Comment on above: Performed By: #### L 300.3900, L503.6005, L300.4310, L100.0100, L500.4050, M200.1000 ####[facility] [address] [place], [address] Platelet countOrdered By: Derrick Carney on 09-18-2024 Platelets (Bld) [#/Vol] 119 10*3/uL Low 150-450 [facility] Potassium measurement (mass/ volume)Ordered By: Augustin Carney on 09-18-2024 Potassium (Unsp spec) [Mass/Vol] 4.1 mmol/L 3.3-5.1 [facility] Protein Test strip Ql (U)Ord ered By: Augustin Carney on 09-18-2024 Protein Ql (U) 30 mg/dl High Negative [facility] Prothrombin Time w/INRon INR Coag (PPP) [Relative time] 1.4 {INR} Normal [facility] Comment on above: Performed By: #### L 300.3900, L503.6005, L300.4310, L100.0100, L500.4050, M200.1000 ####[facility] [address] [place], [address] PT Coag (PPP) [Time] 17.7 s High 11.7-14.9 [facility] Comment on above: Performed By: #### L 300.3900, L503.6005, L300.4310, L100.0100, L500.4050, M200.1000 ####[facility] [address] [place], [address] Prothrombin timeOrdered By: Augustin Carney on 09-18-2024 PT Coag (PPP) [Time] 17.7 s High 11.7-14.9 [facility] RBC Auto (Bld) [#/Vol]Ordere d By: Augustin Carney on 09-18-2024 RBC (Bld) [#/Vol] 3.63 10*6/uL Low 4.6-6.2 [facility] Serum creatinine measurement (mass/volume)Ordered By: Augustin Carney on 09-18-2024 Creatinine [Mass/Vol] 2.13 mg/dL High 0.70-1.20 [facility] Serum globulin measurementOr dered By: Augustin Carney on 09-18-2024 Globulin (S) [Mass/Vol] 2.8 g/dL 2.2-4.2 [facility] Serum glucose measurement (m ass/volume)Ordered By: Augustin Carney on 09-18-2024 Glucose [Mass/Vol] 75 mg/dL 70-99 [facility] Serum or plasma alanine moreno otransferase (ALT) measurementOrdered By: Augustin Carney on 09-18-2024 ALT [Catalytic activity/Vol] 20 U/L <47 [facility] Serum or plasma albumin manuelito urement (mass/volume)Ordered By: Augustin Carney on 09-18-2024 Albumin [Mass/Vol] 3.3 g/dL Low 3.4-4.8 [facility] Serum or plasma albumin/glob ulin mass ratioOrdered By: Augustin Carney on 09-18-2024 Albumin/Globulin [Mass ratio] 1.2 {ratio} 0.9-2.4 [facility] Serum or plasma alkaline francisca sphatase measurementOrdered By: Augustin Carney on 09-18-2024 ALP [Catalytic activity/Vol] 152 U/L High 40-129 [facility] Serum or plasma calcium manuelito urement (mass/volume)Ordered By: Augustin Carney on 09-18-2024 Calcium [Mass/Vol] 8.6 mg/dL 7.6-11.0 [facility] Serum or plasma urea nitroge n measurement (mass/volume)Ordered By: Augustin Carney on 09-18-2024 Urea nitrogen [Mass/Vol] 43 mg/dL High 4-19 [facility] Sodium levelOrdered By: Augustin Carney on 09-18-2024 Sodium [Moles/Vol] 137 mmol/L 133-145 [facility] Squamous epithelial cells de tection in urine sediment by light microscopyOrdered By: Augustin Carney on 09-18-2024 Epithelial cells.squamous LM Ql (Urine sed) 0 SEEN /hpf 0-5 [facility] Total proteinOrdered By: Ayad Carney on 09-18-2024 Protein [Mass/Vol] 6.1 g/dL 5.9-8.4 [facility] Troponin T.cardiac [Mass/vol ume] in Serum or Plasma by High sensitivity methodOrdered By: Augustin Carney on 09-18-2024 Troponin T.cardiac High sensitivity method [Mass/Vol] 41 ng/L High <22 [facility] Troponin T.cardiac High sensitivity method [Mass/Vol] 44 ng/L High <22 [facility] Troponin T.cardiac High sensitivity method [Mass/Vol] 47 ng/L High <22 [facility] Urinalysis, Completeon 09-18 WBC 5-10 SEEN Normal 0-5 [facility] Comment on above: Order Comment: MAU CTOR TO SPECIFY Performed By: #### M 100.2200, L400.0001, M100.678 ####[facility] [address] [place], [address] CAST,HYALINE 0-5 SEEN Normal [address] [place] [address] Comment on above: Order Comment: MAU CTOR TO SPECIFY Performed By: #### M 100.2200, L400.0001, M100.678 ####[facility] [address] [place], [address] BACTERIA 0 SEEN Normal None Seen [facility] Comment on above: Order Comment: MAU CTOR TO SPECIFY Performed By: #### M 100.2200, L400.0001, M100.678 ####[facility] [address] [place], [address] EPI,SQUAMOUS 0 SEEN Normal 0-5 [facility] Comment on above: Order Comment: MAU CTOR TO SPECIFY Performed By: #### M 100.2200, L400.0001, M100.678 ####[facility] [address] [place], [address] Mucus Ql (Urine sed) 0 SEEN Normal [facility] Comment on above: Order Comment: COLLE CTOR TO SPECIFY Performed By: #### M 100.2200, L400.0001, M100.678 ####[facility] [address] [place], [address] RBC 0 SEEN Normal 0-5 [facility] Comment on above: Order Comment: COLLE CTOR TO SPECIFY Performed By: #### M 100.2200, L400.0001, M100.678 ####[facility] [address] [place], [address] Urine clarityOrdered By: Ayad Carney on 09-18-2024 Clarity (U) Clear Clear [facility] Urine color determinationOrd ered By: Augustin Carney on 09-18-2024 Color (U) Yellow Yellow [facility] Urine cultureOrdered By: Ayad Carney on 09-18-2024 Bacteria identified Cx Nom (U) Culture exhibits no growth. [facility] Urine glucose detectionOrder ed By: Augustin Carney on 09-18-2024 Glucose Ql (U) Normal mg/dl Normal [facility] Urine leukocyte esterase det ection by dipstickOrdered By: Augustin Carney on 09-18-2024 Leukocyte esterase Test strip Ql (U) 25 /ul High Negative [facility] Urine pHOrdered By: Augustin Chong ghsierra on 09-18-2024 pH (U) 6.0 [pH] 5.0 - 8.0 [facility] Urine sediment bacteria coun t by microscopy (number/high power field)Ordered By: Augustin Carney on 09-18-2024 Bacteria LM.HPF (Urine sed) [#/Area] 0 /[HPF] None Seen [facility] Urine specific gravity measu rementOrdered By: Augustin Carney on 09-18-2024 Specific gravity (U) [Rel density] 1.015 1.002-1.03 0 [facility] Urine urobilinogen measureme ntOrdered By: Augustin Carney on 09-18-2024 Urobilinogen Ql (U) 1 mg/dl High Normal [facility] White blood cell (WBC) count Ordered By: Augustin Carney on 09-18-2024 WBC (Bld) [#/Vol] 4.4 10*3/uL 4.4-11.0 [facility] White blood cell countOrdere d By: Augustin Carney on 09-18-2024 White blood cell count 5-10 SEEN /hpf 0-5 [facility] CNNURSEon 09-15-2024 CNNURSE Normal [facility] Basic metabolic 2000 panelon 09-08-2024 Anion gap [Moles/Vol] 11 mmol/L Normal 8-[address] [facility] Comment on above: Order Comment: Speci men Type: BLOOD SPECIMENOrdering Facility: [facility] Address: [address] [place] [address] Performed By: #### 2 4321-2 ####[facility] [id number] [place] [address] [place] Calcium [Mass/Vol] 8.8 mg/dL Normal 8.5-10.2 [facility] Comment on above: Order Comment: Speci men Type: BLOOD SPECIMENOrdering Facility: [facility] Address: [address] [place] [address] Performed By: #### 2 4321-2 ####[facility] [id number] [place] [address] [place] Chloride [Moles/Vol] 105 mmol/L Normal 98-107 [facility] Comment on above: Order Comment: Speci men Type: BLOOD SPECIMENOrdering Facility: [facility] Address: [address] [place] [address] Performed By: #### 2 4321-2 ####[facility] [id number] [place] [address] [place] CO2 [Moles/Vol] 22 mmol/L Normal 22-30 [facility] Comment on above: Order Comment: Speci men Type: BLOOD SPECIMENOrdering Facility: [facility] Address: [address] [place], [place] [address] Performed By: #### 2 4321-2 ####[facility] BEACHESNCLIA [id number] [place] [address] [place] Creatinine [Mass/Vol] 0.99 mg/dL Normal 0.73-1.[address] [facility] Comment on above: Order Comment: Speci men Type: BLOOD SPECIMENOrdering Facility: [facility] Address: [address] [place] [address] Performed By: #### 2 4321-2 ####[facility]ESNCCAC[facility] [id number] [place] [address] [place] Creatinine and Glomerular filtration rate.predicted panel (S/P/Bld) 81 mL/min/1.73m??? Normal >=60 [facility] Comment on above: Order Comment: Bassam hong Type: BLOOD SPECIMENOrdering Facility: [facility] Address: [address] [place] [address] Result Comment: Beth mated Glomerular Filtration Rate [...] actual GFR. Performed By: #### 2 4321-2 ####[facility] [id number] [place] [address] [place] Glucose [Mass/Vol] 93 mg/dL Normal 74-99 [facility] Comment on above: Order Comment: Speci men Type: BLOOD SPECIMENOrdering Facility: [facility] Address: [address] [place] [address] Result Comment: The [place] Diabetes Association (ADA) provides guidance for cutoff [...] Standards of Medical Care in Diabetes 2016, [place] [employer]. Diabetes Care. 2016.39(Suppl 1). Performed By: #### 2 4321-2 ####[facility] HOSPITALWANGELICALIA [id number] [place] [address] [place] Potassium [Moles/Vol] 3.9 mmol/L Normal 3.7-5.[address] [facility] Comment on above: Order Comment: Bassam hong Type: BLOOD SPECIMENOrdering Facility: [facility] Address: [address] [place] [address] Performed By: #### 2 4321-2 ####[facility]LESShireen [id number] [place] [address] [place] Sodium [Moles/Vol] 138 mmol/L Normal 136-144 [facility] Comment on above: Order Comment: Bassam hong Type: BLOOD SPECIMENOrdering Facility: [facility] Address: [address] [place] [address] Performed By: #### 2 4321-2 ####[facility] [id number] [place] [address] [place] Urea nitrogen [Mass/Vol] 23 mg/dL Normal 9-24 [facility] Comment on above: Order Comment: Jose Manueli hal Type: BLOOD SPECIMENOrdering Facility: [facility] Address: [address] [place] [address] Performed By: #### 2 4321-2 ####[facility] BEACHESNCLIA [id number] [place] [address] [place] CBC W Auto Differential pane l (Bld)on 09-08-2024 Basophils (Bld) [#/Vol] 10*3/uL Normal <0.11 [facility] Comment on above: Order Comment: Speci men Type: BLOOD SPECIMENOrdering Facility: [facility] Address: [address] [place] [address] Performed By: #### 5 7021-8 ####[facility] HOSPITALWKYLIA [id number] [place] [address] [place] Basophils/100 WBC (Bld) 0.2 % Normal [facility] Comment on above: Order Comment: Speci men Type: BLOOD SPECIMENOrdering Facility: [facility] Address: [address] [place] [address] Performed By: #### 5 7021-8 ####[facility] [id number] [place] [address] [place] Differential cell count method Nom (Bld) Auto Normal [facility] Comment on above: Order Comment: Speci men Type: BLOOD SPECIMENOrdering Facility: [facility] Address: [address] [place] [address] Performed By: #### 5 7021-8 ####[facility] [id number] [place] [address] [place] Eosinophils (Bld) [#/Vol] 0.24 10*3/uL Normal <0.46 [facility] Comment on above: Order Comment: Speci men Type: BLOOD SPECIMENOrdering Facility: [facility] Address: [address] [place] [address] Performed By: #### 5 7021-8 ####[facility] [id number] [place] [address] [place] Eosinophils/100 WBC (Bld) 3.7 % Normal [facility] Comment on above: Order Comment: Speci men Type: BLOOD SPECIMENOrdering Facility: [facility] Address: [address] [place] [address] Performed By: #### 5 7021-8 ####[facility] BEACHESNCMJ [id number] [place] [address] [place] Erythrocyte distribution width (RBC) [Ratio] 21.0 % High 11.5-15.0 [facility] Comment on above: Order Comment: Speci men Type: BLOOD SPECIMENOrdering Facility: [facility] Address: [address] [place] [address] Performed By: #### 5 7021-8 ####[facility] [id number] [place] [address] [place] Hematocrit (Bld) [Volume fraction] 27.9 % Low 39.0-51.0 [facility] Comment on above: Order Comment: Speci men Type: BLOOD SPECIMENOrdering Facility: [facility] Address: [address] [place] [address] Performed By: #### 5 7021-8 ####[facility] [id number] [place] [address] [place] Hemoglobin (Bld) [Mass/Vol] 8.5 g/dL Low 13.0-17.0 [facility] Comment on above: Order Comment: Speci men Type: BLOOD SPECIMENOrdering Facility: [facility] Address: [address] [place] [address] Performed By: #### 5 7021-8 ####[facility] [id number] [place] [address] [place] Immature granulocytes (Bld) [#/Vol] 0.07 10*3/uL Normal <0.10 [facility] Comment on above: Order Comment: Speci men Type: BLOOD SPECIMENOrdering Facility: [facility] Address: [address] [place] [address] Performed By: #### 5 7021-8 ####[facility] BEACHESANGELICALIA [id number] [place] [address] [place] Immature granulocytes/100 WBC (Bld) 1.1 % Normal [facility] Comment on above: Order Comment: Speci men Type: BLOOD SPECIMENOrdering Facility: [facility] Address: [address] [place] [address] Performed By: #### 5 7021-8 ####[facility] BEACHESANGELICAShireen [id number] [place] [address] [place] Lymphocytes (Bld) [#/Vol] 2.43 10*3/uL Normal 1.00-4.00 [facility] Comment on above: Order Comment: Speci men Type: BLOOD SPECIMENOrdering Facility: [facility] Address: [address] [place] [address] Performed By: #### 5 7021-8 ####[facility] [id number] [place] [address] [place] Lymphocytes/100 WBC (Bld) 37.3 % Normal [facility] Comment on above: Order Comment: Speci men Type: BLOOD SPECIMENOrdering Facility: [facility] Address: [address] [place] [address] Performed By: #### 5 7021-8 ####[facility] HOSPITALLIA [id number] [place] [address] [place] MCH (RBC) [Entitic mass] 24.6 pg Low 26.0-34.0 [facility] Comment on above: Order Comment: Speci men Type: BLOOD SPECIMENOrdering Facility: [facility] Address: [address] [place] [address] Performed By: #### 5 7021-8 ####[facility] BEACHESNCLIA [id number] [place] [address] [place] MCHC (RBC) [Mass/Vol] 30.5 g/dL Normal 30.5-36.[address] [facility] Comment on above: Order Comment: Speci men Type: BLOOD SPECIMENOrdering Facility: [facility] Address: [address] [place] [address] Performed By: #### 5 7021-8 ####[facility]ACHESNCCAC[facility] VAL[facility] [id number] [place] [address] [place] MCV (RBC) [Entitic vol] 80.6 fL Normal 80.0-100.0 [facility] Comment on above: Order Comment: Speci men Type: BLOOD SPECIMENOrdering Facility: [facility] Address: [address] [place] [address] Performed By: #### 5 7021-8 ####[facility] [id number] [place] [address] [place] Monocytes (Bld) [#/Vol] 0.46 10*3/uL Normal <0.87 [facility] Comment on above: Order Comment: Speci men Type: BLOOD SPECIMENOrdering Facility: [facility] Address: [address] [place] [address] Performed By: #### 5 7021-8 ####[facility] [id number] [place] [address] [place] Monocytes/100 WBC (Bld) 7.1 % Normal [facility] Comment on above: Order Comment: Speci men Type: BLOOD SPECIMENOrdering Facility: [facility] Address: [address] [place] [address] Performed By: #### 5 7021-8 ####[facility] [id number] [place] [address] [place] Neutrophils (Bld) [#/Vol] 3.31 10*3/uL Normal 1.45-7.50 [facility] Comment on above: Order Comment: Speci men Type: BLOOD SPECIMENOrdering Facility: [facility] Address: [address] [place] [address] Performed By: #### 5 7021-8 ####[facility] BIENVENIDOWNCLIA [id number] [place] [address] [place] Neutrophils/100 WBC (Bld) 50.6 % Normal [facility] Comment on above: Order Comment: Speci men Type: BLOOD SPECIMENOrdering Facility: [facility] Address: [address] [place] [address] Performed By: #### 5 7021-8 ####[facility] HOSPITALLIA [id number] [place] [address] [place] Nucleated RBC (Bld) [#/Vol] 10*3/uL Normal <0.01 [facility] Comment on above: Order Comment: Speci men Type: BLOOD SPECIMENOrdering Facility: [facility] Address: [address] [place] [address] Performed By: #### 5 7021-8 ####[facility] HOSPITALLIA [id number] [place] [address] [place] Nucleated RBC/100 WBC (Bld) [Ratio] 0.0 /100 WBC Normal [facility] Comment on above: Order Comment: Speci men Type: BLOOD SPECIMENOrdering Facility: [facility] Address: [address] [place] [address] Performed By: #### 5 7021-8 ####[facility] BEACHESNCLIA [id number] [place] [address] [place] Platelet mean volume (Bld) [Entitic vol] 8.4 fL Low 9.0-12.7 [facility] Comment on above: Order Comment: Speci men Type: BLOOD SPECIMENOrdering Facility: [facility] Address: [address] [place] [address] Performed By: #### 5 7021-8 ####[facility] HOSPITALLIA [id number] [place] [address] [place] Platelets (Bld) [#/Vol] 196 10*3/uL Normal 150-400 [facility] Comment on above: Order Comment: Speci men Type: BLOOD SPECIMENOrdering Facility: [facility] Address: [address] [place] [address] Performed By: #### 5 7021-8 ####[facility] [id number] [place] [address] [place] RBC (Bld) [#/Vol] 3.46 10*6/uL Low 4.20-6.00 [facility] Comment on above: Order Comment: Speci men Type: BLOOD SPECIMENOrdering Facility: [facility] Address: [address] [place] [address] Performed By: #### 5 7021-8 ####[facility] [id number] [place] [address] [place] WBC (Bld) [#/Vol] 6.52 10*3/uL Normal 3.70-11.00 [facility] Comment on above: Order Comment: Speci men Type: BLOOD SPECIMENOrdering Facility: [facility] Address: [address] [place] [address] Performed By: #### 5 7021-8 ####[facility] [id number] [place] [address] [place] CNOVSPon 09-08-2024 CNOVSP Normal [facility] CNNURSEon 08-27-2024 CNNURSE Normal [facility] FERRITINon 08-12-2024 Ferritin [Mass/Vol] 835 ng/mL High 30.3 - 565.7 ng/mL [facility] Ferritin [Mass/Vol]on 2024 Interpretation and review of laboratory results Abnormal [facility] 25(OH)D3 SerPl-mCncon 2024 25-hydroxyvitamin D3 [Mass/Vol] 19.1 ng/mL Low 31.0-80.0 [facility] Comment on above: Order Comment: Speci men Type: BLOOD SPECIMENOrdering Facility: [facility] Address: [address] [place] [address] Result Comment: Clas sification of 25 OH Vitamin D status:Deficiency/Insufficiency: < or = 30 ng/ml.Sufficiency/Optimal Levels: 31-80 ng/mLToxicity: > 100 ng/mL.Test performed by chemiluminescent immunoassay. Performed By: #### 1 989-3 ####[facility] LABCLIA [id number] [place] [address] [place] 25-hydroxyvitamin D3 [Mass/V ol]on 08-11-2024 Interpretation and review of laboratory results Abnormal [facility] The reference range interval was based on an analysis of samples from healthy adults and may not pertain to children from 0-18 years old. [facility] Basic metabolic 2000 panelon 08-11-2024 Anion gap [Moles/Vol] 8 mmol/L Normal 8-[address] [facility] Comment on above: Order Comment: Speci men Type: BLOOD SPECIMENOrdering Facility: [facility] Address: [address] [place] [address] Performed By: #### 2 4321-2 ####[facility] [id number] [place] [address] [place] Calcium [Mass/Vol] 9.4 mg/dL Normal 8.5-10.2 [facility] Comment on above: Order Comment: Speci men Type: BLOOD SPECIMENOrdering Facility: [facility] Address: [address] [place] [address] Performed By: #### 2 4321-2 ####[facility] HOSPITALLIA [id number] [place] [address] [place] Chloride [Moles/Vol] 101 mmol/L Normal 98-107 [facility] Comment on above: Order Comment: Speci men Type: BLOOD SPECIMENOrdering Facility: [facility] Address: [address] [place] [address] Performed By: #### 2 4321-2 ####[facility] CORONANCMJ [id number] [place] [address] [place] CO2 [Moles/Vol] 28 mmol/L Normal 22-30 [facility] Comment on above: Order Comment: Speci men Type: BLOOD SPECIMENOrdering Facility: [facility] Address: [address] [place] [address] Performed By: #### 2 4321-2 ####[facility]ESNCCAC[facility] [id number] [address] [place] Creatinine [Mass/Vol] 1.05 mg/dL Normal 0.73-1.[address] [facility] Comment on above: Order Comment: Speci men Type: BLOOD SPECIMENOrdering Facility: [facility] Address: [address] [place] [address] Performed By: #### 2 4321-2 ####[facility] BEACHESNCLIA [id number] [address] OF [facility] Creatinine and Glomerular filtration rate.predicted panel (S/P/Bld) 76 mL/min/1.73m??? Normal >=60 [facility] Comment on above: Order Comment: Speci men Type: BLOOD SPECIMENOrdering Facility: [facility] Address: [address] [place] [address] Result Comment: Beth mated Glomerular Filtration Rate [...] actual GFR. Performed By: #### 2 4321-2 ####[facility] HOSPITALWNCA [id number] [place] [address] [place] Glucose [Mass/Vol] 97 mg/dL Normal 74-99 [facility] Comment on above: Order Comment: Speci men Type: BLOOD SPECIMENOrdering Facility: [facility] Address: [address] [place], [place] [address] Result Comment: The [place] Diabetes Association (ADA) provides guidance for cutoff [...] Standards of Medical Care in Diabetes 2016, [place] [employer]. Diabetes Care. 2016.39(Suppl 1). Performed By: #### 2 4321-2 ####[facility] HOSPITALWKYLIA [id number] [place] [address] [place] Potassium [Moles/Vol] 4.1 mmol/L Normal 3.7-5.[address] [facility] Comment on above: Order Comment: Speci men Type: BLOOD SPECIMENOrdering Facility: [facility] Address: [address] [place], [place] [address] Performed By: #### 2 4321-2 ####[facility] HOSPITALWNCLIA [id number] [place] [address] [place] Sodium [Moles/Vol] 137 mmol/L Normal 136-144 [facility] Comment on above: Order Comment: Speci men Type: BLOOD SPECIMENOrdering Facility: [facility] Address: [address] [place], [place] [address] Performed By: #### 2 4321-2 ####[facility] HOSPITALLIA [id number] [place] [address] [place] Urea nitrogen [Mass/Vol] 21 mg/dL Normal 9-24 [facility] Comment on above: Order Comment: Speci men Type: BLOOD SPECIMENOrdering Facility: [facility] Address: [address] [place] [address] Performed By: #### 2 4321-2 ####[facility]OSPITALLIA [id number] [place] [address] [place] CBC W Auto Differential pane l (Bld)on 08-11-2024 Basophils (Bld) [#/Vol] 10*3/uL Normal <0.11 [facility] Comment on above: Order Comment: Speci men Type: BLOOD SPECIMENOrdering Facility: [facility] Address: [address] [place] [address] Performed By: #### 5 7021-8 ####[facility] [id number] [place] [address] [place] Basophils/100 WBC (Bld) 0.2 % Normal [facility] Comment on above: Order Comment: Speci men Type: BLOOD SPECIMENOrdering Facility: [facility] Address: [address] [place] [address] Performed By: #### 5 7021-8 ####[facility] BEACHESHEAVENA [id number] [place] [address] [place] Differential cell count method Nom (Bld) Auto Normal [facility] Comment on above: Order Comment: Speci men Type: BLOOD SPECIMENOrdering Facility: [facility] Address: [address] [place] [address] Performed By: #### 5 7021-8 ####[facility] BEACHESNCLIA [id number] [place] [address] [place] Eosinophils (Bld) [#/Vol] 0.23 10*3/uL Normal <0.46 [facility] Comment on above: Order Comment: Speci men Type: BLOOD SPECIMENOrdering Facility: [facility] Address: [address] [place] [address] Performed By: #### 5 7021-8 ####[facility] BIENVENIDOMariannaNCMJ [id number] [place] [address] [place] Eosinophils/100 WBC (Bld) 4.7 % Normal [facility] Comment on above: Order Comment: Speci men Type: BLOOD SPECIMENOrdering Facility: [facility] Address: [address] [place] [address] Performed By: #### 5 7021-8 ####[facility] BEACHESNCLIShireen [id number] [place] [address] [place] Erythrocyte distribution width (RBC) [Ratio] 20.4 % High 11.5-15.0 [facility] Comment on above: Order Comment: Speci men Type: BLOOD SPECIMENOrdering Facility: [facility] Address: [address] [place] [address] Performed By: #### 5 7021-8 ####[facility] BEACHESNCA [id number] [place] [address] [place] Hematocrit (Bld) [Volume fraction] 30.9 % Low 39.0-51.0 [facility] Comment on above: Order Comment: Speci men Type: BLOOD SPECIMENOrdering Facility: [facility] Address: [address] [place] [address] Performed By: #### 5 7021-8 ####[facility] BEACHESNCLIA [id number] [place] [address] [place] Hemoglobin (Bld) [Mass/Vol] 9.5 g/dL Low 13.0-17.0 [facility] Comment on above: Order Comment: Speci men Type: BLOOD SPECIMENOrdering Facility: [facility] Address: [address] [place] [address] Performed By: #### 5 7021-8 ####[facility] MILLTOWNCLIA [id number] [place] [address] [place] Immature granulocytes (Bld) [#/Vol] 10*3/uL Normal <0.10 [facility] Comment on above: Order Comment: Speci men Type: BLOOD SPECIMENOrdering Facility: [facility] Address: [address] [place] [address] Performed By: #### 5 7021-8 ####[facility] BEACHESNCLIA [id number] [place] [address] [place] Immature granulocytes/100 WBC (Bld) 0.2 % Normal [facility] Comment on above: Order Comment: Speci men Type: BLOOD SPECIMENOrdering Facility: [facility] Address: [address] [place] [address] Performed By: #### 5 7021-8 ####[facility] HOSPITALLIA [id number] [place] [address] [place] Lymphocytes (Bld) [#/Vol] 2.26 10*3/uL Normal 1.00-4.00 [facility] Comment on above: Order Comment: Speci men Type: BLOOD SPECIMENOrdering Facility: [facility] Address: [address] [place] [address] Performed By: #### 5 7021-8 ####[facility] HOSPITALLIA [id number] [place] [address] [place] Lymphocytes/100 WBC (Bld) 46.3 % Normal [facility] Comment on above: Order Comment: Speci men Type: BLOOD SPECIMENOrdering Facility: [facility] Address: [address] [place] [address] Performed By: #### 5 7021-8 ####[facility] HOSPITALLIA [id number] [place] [address] [place] MCH (RBC) [Entitic mass] 24.2 pg Low 26.0-34.0 [facility] Comment on above: Order Comment: Speci men Type: BLOOD SPECIMENOrdering Facility: [facility] Address: [address] [place] [address] Performed By: #### 5 7021-8 ####[facility]ACHESNCCAC[facility] [id number] [place] [address] [place] MCHC (RBC) [Mass/Vol] 30.7 g/dL Normal 30.5-36.[address] [facility] Comment on above: Order Comment: Speci men Type: BLOOD SPECIMENOrdering Facility: [facility] Address: [address] [place] [address] Performed By: #### 5 7021-8 ####[facility] [id number] [place] [address] [place] MCV (RBC) [Entitic vol] 78.8 fL Low 80.0-100.0 [facility] Comment on above: Order Comment: Speci men Type: BLOOD SPECIMENOrdering Facility: [facility] Address: [address] [place] [address] Performed By: #### 5 7021-8 ####[facility] [id number] [place] [address] [place] Monocytes (Bld) [#/Vol] 0.36 10*3/uL Normal <0.87 [facility] Comment on above: Order Comment: Speci men Type: BLOOD SPECIMENOrdering Facility: [facility] [facility] Address: [address] [place] [address] Performed By: #### 5 7021-8 ####[facility] BEACHESNCLI [id number] [address] OF [place] Monocytes/100 WBC (Bld) 7.4 % Normal [facility] Comment on above: Order Comment: Speci men Type: BLOOD SPECIMENOrdering Facility: [facility] Address: [address] [place] [address] Performed By: #### 5 7021-8 ####[facility] BIENVENIDOQUIMBYANGELICALIA [id number] [place] [address] [place] Neutrophils (Bld) [#/Vol] 2.01 10*3/uL Normal 1.45-7.50 [facility] Comment on above: Order Comment: Speci men Type: BLOOD SPECIMENOrdering Facility: [facility] Address: [address] [place] [address] Performed By: #### 5 7021-8 ####[facility] [id number] [place] [address] [place] Neutrophils/100 WBC (Bld) 41.2 % Normal [facility] Comment on above: Order Comment: Speci men Type: BLOOD SPECIMENOrdering Facility: [facility] Address: [address] [place] [address] Performed By: #### 5 7021-8 ####[facility] [id number] [place] [address] [place] Nucleated RBC (Bld) [#/Vol] 10*3/uL Normal <0.01 [facility] Comment on above: Order Comment: Speci men Type: BLOOD SPECIMENOrdering Facility: [facility] Address: [address] [place] [address] Performed By: #### 5 7021-8 ####[facility]PITALLIA [id number] [place] [address] [place] Nucleated RBC/100 WBC (Bld) [Ratio] 0.0 /100 WBC Normal [facility] Comment on above: Order Comment: Speci men Type: BLOOD SPECIMENOrdering Facility: [facility] Address: [address] [place] [address] Performed By: #### 5 7021-8 ####[facility] HOSPITALWNCLIA [id number] [place] [address] [place] Platelet mean volume (Bld) [Entitic vol] 8.6 fL Low 9.0-12.7 [facility] Comment on above: Order Comment: Speci men Type: BLOOD SPECIMENOrdering Facility: [facility] Address: [address] [place] [address] Performed By: #### 5 7021-8 ####[facility]PITALLIA [id number] [place] [address] [place] Platelets (Bld) [#/Vol] 162 10*3/uL Normal 150-400 [facility] Comment on above: Order Comment: Speci men Type: BLOOD SPECIMENOrdering Facility: [facility] Address: [address] [place] [address] Performed By: #### 5 7021-8 ####[facility] [id number] [place] [address] [place] RBC (Bld) [#/Vol] 3.92 10*6/uL Low 4.20-6.00 [facility] Comment on above: Order Comment: Speci men Type: BLOOD SPECIMENOrdering Facility: [facility] Address: [address] [place] [address] Performed By: #### 5 7021-8 ####[facility]PITALLIA [id number] [place] [address] [place] WBC (Bld) [#/Vol] 4.88 10*3/uL Normal 3.70-11.00 [facility] Comment on above: Order Comment: Speci men Type: BLOOD SPECIMENOrdering Facility: [facility] Address: [address] [place] [address] Performed By: #### 5 7021-8 ####[facility]PITALLIA [id number] [place] [id number] [place] CNOVSPon 08-11-2024 CNOVSP Normal [facility] Ferritin SerPl-mCncon 2024 Ferritin [Mass/Vol] 835.0 ng/mL High 30.3-565.7 [facility] Comment on above: Order Comment: Speci men Type: BLOOD SPECIMENOrdering Facility: [facility] Address: [address] [place] [address] Performed By: #### 5 0190-8, 2275-07 ####[facility] LABCLIA [id number] [place] [address] [place] Iron and Iron binding capaci ty panelon 08-11-2024 Interpretation and review of laboratory results Abnormal [facility] Iron [Mass/Vol] 190 ug/dL High 41 - 186 ug/dL [facility] Iron binding capacity [Mass/Vol] 259 ug/dL 232 - 386 ug/dL [facility] Iron/TIBC [Molar ratio] 73.4 % High 15.0 - 57.0 % [facility] Iron [Mass/Vol] 190 ug/dL High 41-186 [facility] Comment on above: Order Comment: Speci men Type: BLOOD SPECIMENOrdering Facility: [facility] Address: [address] [place] [address] Performed By: #### 5 0190-8, 2275-07 ####[facility] LABCLIA [id number] [place] [address] [place] Iron binding capacity [Mass/Vol] 259 ug/dL Normal 232-386 [facility] Comment on above: Order Comment: Speci men Type: BLOOD SPECIMENOrdering Facility: [facility] Address: [address] [place] [address] Performed By: #### 5 0190-8, 2275- ####[facility] LABCLIA [id number] [place] [address] [place] Iron/TIBC [Molar ratio] 73.4 % High 15.0-57.0 [facility] Comment on above: Order Comment: Speci men Type: BLOOD SPECIMENOrdering Facility: [facility] Address: [address] [place] [address] Performed By: #### 5 0190-8, 2276-4 ####[facility] LABCLIA [id number] [place] [address] [place] PSA SerPl-mCncon 08-11-2024 Prostate specific Ag [Mass/Vol] ng/mL Normal <2.60 [facility] Comment on above: Order Comment: Speci men Type: BLOOD SPECIMENOrdering Facility: [facility] Address: [address] [place] [address] Result Comment: Tota l PSA test methodology used is the Electrochemiluminescence Immunoassay by [employer]. Total PSA values by differing methodologies cannot be interchanged. Performed By: #### 2 857-1 ####[facility] LABCLIA [id number] [place] [address] [place] VITAMIN D 25 HYDROXYon 08-11 25-hydroxyvitamin D3 [Mass/Vol] 19.1 ng/mL Low 31.0 - 80.0 ng/mL [facility] Comment on above: Classification of 25 [place] Vitamin D status: Deficiency/Insufficiency: < or = 30 ng/ml. Sufficiency/Optimal Levels: 31-80 ng/mL Toxicity: > 100 ng/mL. Test performed by chemiluminescent immunoassay. ECG COMPLETEon 08-10-2024 Atrial Rate 95 BPM [facility] Calculated P [place] 61 degrees [facility] Calculated R [place] -32 degrees [facility] Calculated T [place] 62 degrees [facility] P-R Interval 136 ms [facility] QRS Duration 76 ms [facility] QT Interval 360 ms [facility] QTC Calculation (Bazett) 452 ms [facility] Ventricular Rate 95 BPM [facility] NORMAL SINUS RHYTHM ANTERIOR T WAVE ABNORMALITY ABNORMAL ECG Confirmed by MD JOZEF, QADINA ([id number]) on 08/10/2024 11:55:46 [facility] NAME : ROSA CASTILLO Asiya PID : [id number] : 1955 Gender : Male Race : ORD : Procedure Date : Aug 09 2024 15:29:24 Edit Date : Aug 10 2024 11:55:48 Diagnosis: NORMAL SINUS RHYTHM ANTERIOR T WAVE ABNORMALITY ABNORMAL ECG Confirmed by MD HASKINS QARAB ([id number]) on 08/10/2024 11:55:46 AM Test Reason : Location : 211 : [facility] Overread By : MD HASKINS QARAB Edited By : MD HASKINS QARAB Referred By : DORCAS ROMERO Acquired by : TANJA NINO, [facility] CNOVon 08-09-2024 CNOV Normal [facility] [id number] 08-09-2024 ECG01 Normal [facility] Basic metabolic 2000 panelon 07-14-2024 Anion gap [Moles/Vol] 9 mmol/L Normal 8-[address] [facility] Comment on above: Order Comment: Speci men Type: BLOOD SPECIMENOrdering Facility: [facility] Address: [address] [place] [address] Performed By: #### 2 4321-2 ####[facility] [id number] [place] [address] [place] Calcium [Mass/Vol] 9.3 mg/dL Normal 8.5-10.2 [facility] Comment on above: Order Comment: Speci men Type: BLOOD SPECIMENOrdering Facility: [facility] Address: [address] [place] [address] Performed By: #### 2 4321-2 ####[facility] [id number] [place] [address] [place] Chloride [Moles/Vol] 102 mmol/L Normal 98-107 [facility] Comment on above: Order Comment: Speci men Type: BLOOD SPECIMENOrdering Facility: [facility] Address: [address] [place] [address] Performed By: #### 2 4321-2 ####[facility] [id number] [place] [address] [place] CO2 [Moles/Vol] 28 mmol/L Normal 22-30 [facility] Comment on above: Order Comment: Speci men Type: BLOOD SPECIMENOrdering Facility: [facility] Address: [address] [place] [address] Performed By: #### 2 4321-2 ####[facility]ESNCCAC[facility] [id number] [place] [address] [place] Creatinine [Mass/Vol] 1.08 mg/dL Normal 0.73-1.[address] [facility] Comment on above: Order Comment: Speci men Type: BLOOD SPECIMENOrdering Facility: [facility] Address: [address] [place] [address] Performed By: #### 2 4321-2 ####[facility] BEACHESNCLIA [id number] [place] [address] [place] Creatinine and Glomerular filtration rate.predicted panel (S/P/Bld) 73 mL/min/1.73m??? Normal >=60 [facility] Comment on above: Order Comment: Jose Manueli men Type: BLOOD SPECIMENOrdering Facility: [facility] Address: [address] [place] [address] Result Comment: Beth mated Glomerular Filtration Rate [...] actual GFR. Performed By: #### 2 4321-2 ####[facility] BEACHESNCLIA [id number] [place] [address] [place] Glucose [Mass/Vol] 99 mg/dL Normal 74-99 [facility] Comment on above: Order Comment: Speci men Type: BLOOD SPECIMENOrdering Facility: [facility] Address: [address] [place] [id number] Result Comment: The [place] Diabetes Association (ADA) provides guidance for cutoff [...] Standards of Medical Care in Diabetes 2016, [place] [employer] Association. Diabetes Care. 2016.39(Suppl 1). Performed By: #### 2 4321-2 ####[facility] [id number] [place] [address] [place] Potassium [Moles/Vol] 4.1 mmol/L Normal 3.7-5.[address] [facility] Comment on above: Order Comment: Speci men Type: BLOOD SPECIMENOrdering Facility: [facility] Address: [address] [place] [id number] Performed By: #### 2 4321-2 ####[facility]PITALMJ [id number] [place] [address] [place] Sodium [Moles/Vol] 139 mmol/L Normal 136-144 [facility] Comment on above: Order Comment: Speci men Type: BLOOD SPECIMENOrdering Facility: [facility] Address: [address] [place] [id number] Performed By: #### 2 4321-2 ####[facility] [id number] [place] [address] [place] Urea nitrogen [Mass/Vol] 22 mg/dL Normal 9-24 [facility] Comment on above: Order Comment: Speci men Type: BLOOD SPECIMENOrdering Facility: [facility] Address: [address] [place] [id number] Performed By: #### 2 4321-2 ####[facility] MILLWNCLIA [id number] [place] [address] [place] CBC W Auto Differential pane l (Bld)on 07-14-2024 Basophils (Bld) [#/Vol] 10*3/uL Normal <0.11 [facility] Comment on above: Order Comment: Speci men Type: BLOOD SPECIMENOrdering Facility: [facility] Address: [address] [place] [address] Performed By: #### 5 7021-8 ####[facility]ALLIA [id number] [place] [address] [place] Basophils/100 WBC (Bld) 0.4 % Normal [facility] Comment on above: Order Comment: Speci men Type: BLOOD SPECIMENOrdering Facility: [facility] Address: [address] [place] [address] Performed By: #### 5 7021-8 ####[facility]ALL[facility] [id number] [place] [address] [place] Differential cell count method Nom (Bld) Auto Normal [facility] Comment on above: Order Comment: Speci men Type: BLOOD SPECIMENOrdering Facility: [facility] Address: [address] [place] [address] Performed By: #### 5 7021-8 ####[facility] MILLWNCLIA [id number] [place] [address] [place] Eosinophils (Bld) [#/Vol] 0.24 10*3/uL Normal <0.46 [facility] Comment on above: Order Comment: Speci men Type: BLOOD SPECIMENOrdering Facility: [facility] Address: [address] [place] [address] Performed By: #### 5 7021-8 ####[facility] MILLFRANCISC[facility] [id number] [place] [address] [place] Eosinophils/100 WBC (Bld) 4.8 % Normal [facility] Comment on above: Order Comment: Speci men Type: BLOOD SPECIMENOrdering Facility: [facility] Address: [address] [place] [address] Performed By: #### 5 7021-8 ####[facility]ACHESANGELICACACHE [facility] [id number] [place] [address] [place] Erythrocyte distribution width (RBC) [Ratio] 20.7 % High 11.5-15.0 [facility] Comment on above: Order Comment: Speci men Type: BLOOD SPECIMENOrdering Facility: [facility] Address: [address] [place] [address] Performed By: #### 5 7021-8 ####[facility] BEACHESANGELICAShireen [id number] [place] [address] [place] Hematocrit (Bld) [Volume fraction] 31.1 % Low 39.0-51.0 [facility] Comment on above: Order Comment: Speci men Type: BLOOD SPECIMENOrdering Facility: [facility] Address: [address] [place] [address] Performed By: #### 5 7021-8 ####[facility] [id number] [place] [address] [place] Hemoglobin (Bld) [Mass/Vol] 9.4 g/dL Low 13.0-17.0 [facility] Comment on above: Order Comment: Speci men Type: BLOOD SPECIMENOrdering Facility: [facility] Address: [address] [place] [address] Performed By: #### 5 7021-8 ####[facility] BEACHESNCLI [id number] [place] [address] [place] Immature granulocytes (Bld) [#/Vol] 10*3/uL Normal <0.10 [facility] Comment on above: Order Comment: Speci men Type: BLOOD SPECIMENOrdering Facility: [facility] Address: [address] [place] [address] Performed By: #### 5 7021-8 ####[facility] BIENVENIDOMariannaNCLIA [id number] [place] [address] [place] Immature granulocytes/100 WBC (Bld) 0.4 % Normal [facility] Comment on above: Order Comment: Speci men Type: BLOOD SPECIMENOrdering Facility: [facility] Address: [address] [place] [address] Performed By: #### 5 7021-8 ####[facility]ESANGELICACAC[facility] [id number] [place] [address] [place] Lymphocytes (Bld) [#/Vol] 2.11 10*3/uL Normal 1.00-4.00 [facility] Comment on above: Order Comment: Speci men Type: BLOOD SPECIMENOrdering Facility: [facility] Address: [address] [place] [address] Performed By: #### 5 7021-8 ####[facility] [id number] [place] [address] [place] Lymphocytes/100 WBC (Bld) 41.9 % Normal [facility] Comment on above: Order Comment: Speci men Type: BLOOD SPECIMENOrdering Facility: [facility] Address: [address] [place] [address] Performed By: #### 5 7021-8 ####[facility] [id number] [place] [address] [place] MCH (RBC) [Entitic mass] 24.3 pg Low 26.0-34.0 [facility] Comment on above: Order Comment: Speci men Type: BLOOD SPECIMENOrdering Facility: [facility] Address: [address] [place] [address] Performed By: #### 5 7021-8 ####[facility] VIKTORWNCLIA [id number] [place] [address] [place] MCHC (RBC) [Mass/Vol] 30.2 g/dL Low 30.5-36.[address] [facility] Comment on above: Order Comment: Speci men Type: BLOOD SPECIMENOrdering Facility: [facility] Address: [address] [place] [address] Performed By: #### 5 7021-8 ####[facility] BEACHESNCKATERINA [id number] [place] [address] [place] MCV (RBC) [Entitic vol] 80.4 fL Normal 80.0-100.0 [facility] Comment on above: Order Comment: Speci men Type: BLOOD SPECIMENOrdering Facility: [facility] Address: [address] [place] [address] Performed By: #### 5 7021-8 ####[facility] [id number] [place] [address] [place] Monocytes (Bld) [#/Vol] 0.36 10*3/uL Normal <0.87 [facility] Comment on above: Order Comment: Speci men Type: BLOOD SPECIMENOrdering Facility: [facility] Address: [address] [place] [address] Performed By: #### 5 7021-8 ####[facility]ALL[facility] [id number] [place] [address] [place] Monocytes/100 WBC (Bld) 7.2 % Normal [facility] Comment on above: Order Comment: Speci men Type: BLOOD SPECIMENOrdering Facility: [facility] Address: [address] [place] [address] Performed By: #### 5 7021-8 ####[facility] BEACHESNCLI [id number] [place] [address] [place] Neutrophils (Bld) [#/Vol] 2.28 10*3/uL Normal 1.45-7.50 [facility] Comment on above: Order Comment: Speci men Type: BLOOD SPECIMENOrdering Facility: [facility] Address: [address] [place] [address] Performed By: #### 5 7021-8 ####[facility] [id number] [place] [address] [place] Neutrophils/100 WBC (Bld) 45.3 % Normal [facility] Comment on above: Order Comment: Speci men Type: BLOOD SPECIMENOrdering Facility: [facility] Address: [address] [place] [address] Performed By: #### 5 7021-8 ####[facility]ESNCC[facility] [id number] [place] [address] [place] Nucleated RBC (Bld) [#/Vol] 10*3/uL Normal <0.01 [facility] Comment on above: Order Comment: Speci men Type: BLOOD SPECIMENOrdering Facility: [facility] Address: [address] [place] [address] Performed By: #### 5 7021-8 ####[facility] [id number] [place] [address] [place] Nucleated RBC/100 WBC (Bld) [Ratio] 0.0 /100 WBC Normal [facility] Comment on above: Order Comment: Speci men Type: BLOOD SPECIMENOrdering Facility: [facility] Address: [address] [place] [address] Performed By: #### 5 7021-8 ####[facility]ESN[facility] [id number] [place] [address] [place] Platelet mean volume (Bld) [Entitic vol] 8.4 fL Low 9.0-12.7 [facility] Comment on above: Order Comment: Speci men Type: BLOOD SPECIMENOrdering Facility: [facility] Address: [address] [place] [address] Performed By: #### 5 7021-8 ####[facility] SMILEY CORONANCKATERINA [id number] [place] [address] [place] Platelets (Bld) [#/Vol] 171 10*3/uL Normal 150-400 [facility] Comment on above: Order Comment: Speci men Type: BLOOD SPECIMENOrdering Facility: [facility] Address: [address] [place] [address] Performed By: #### 5 7021-8 ####[facility] BIENVENIDOQUIMBYNCLIA [id number] [place] [address] [place] RBC (Bld) [#/Vol] 3.87 10*6/uL Low 4.20-6.00 [facility] Comment on above: Order Comment: Speci men Type: BLOOD SPECIMENOrdering Facility: [facility] Address: [address] [place] [address] Performed By: #### 5 7021-8 ####[facility] BEACHESNCLIA [id number] [place] [address] [place] WBC (Bld) [#/Vol] 5.03 10*3/uL Normal 3.70-11.00 [facility] Comment on above: Order Comment: Speci men Type: BLOOD SPECIMENOrdering Facility: [facility] Address: [address] [place] [address] Performed By: #### 5 7021-8 ####[facility] BIENVENIDOQUIMBYNCLIA [id number] [place] [address] [place] CNNURSEon 07-07-2024 CNNURSE Normal [facility] CNPNon 07-07-2024 CNPN Normal [facility] CNOVon 06-24-2024 CNOV Normal [facility] CNOVon 06-17-2024 CNOV Normal [facility] CNPNon 06-17-2024 CNPN Normal [facility] Pathology biopsy report Regino (Tiss)on 06-17-2024 AP DISCLAIMER Normal [facility] Comment on above: Order Comment: Speci men Type: TISSUE SPECIMENOrdering Facility: [facility] Address: [address] [place] [address] Result Comment: Ty de la rosa Developed Test (LDT) Disclaimer:Performance characteristics of immunohistochemical, immunofluorescent, and chromogenic in-situ hybridization tests have been determined by the performing laboratory within [facility]'s [facility] Pathology and Laboratory Medicine Department ([facility], [facility], [facility], [facility], [facility], [facility], or [facility]) in a manner consistent with CLIA requirements. One or more of these tests may not have been cleared or approved by the FDA. [facility] is regulated under CLIA as qualified to perform high-complexity testing. These tests are used for clinical purposes. These should not be regarded as investigational or for research. Positive and negative controls stain appropriately. Performed By: #### 6 6121-5 ####[facility] LABCLIA [id number] [place] [address] [place] CASE REPORT Normal [facility] Comment on above: Order Comment: Speci men Type: TISSUE SPECIMENOrdering Facility: [facility] Address: [address] [place] [address] Result Comment: Surg ical Pathology Report Case: [id number] Provider: Madelaine Bronson MD Collected: 06/17/2024 10:36 AMOrdering Location: Dermatology Received: 06/17/2024 03:49 PMPathologist: Candace Eugene MDSpecimen: Skin, Excision, right crown of scalp Performed By: #### 6 6121-5 ####[facility] LABCLIA [id number] [place] [address] [place] CLINICAL HISTORY bx proven SCC, Mohs case, non- marginal tissue ( mod diff- SCC) . Suspicious for intravascular SCC, r/o PNI, LVI Normal [facility] Comment on above: Order Comment: Speci men Type: TISSUE SPECIMENOrdering Facility: [facility] Address: [address] [place] [address] Performed By: #### 6 6121-5 ####[facility] LABCLIA [id number] [address] DIAGNOSIS COMMENT A. Perineural invasi on and lymphovascular space invasion are not identified. The maximum depth of the transected tumor is 8 mm. Normal [facility] Comment on above: Order Comment: Speci men Type: TISSUE SPECIMENOrdering Facility: [facility] Address: [address] [place] [address] Performed By: #### 6 6121-5 ####[facility] LABCLIA [id number] [address] FINAL DIAGNOSIS Normal [facility] Comment on above: Order Comment: Speci men Type: TISSUE SPECIMENOrdering Facility: [facility] Address: [address] [place] [address] Result Comment: A. 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, see comment.MADISON/LANG 06/21/2024 at 1001 EDT Performed By: #### 6 6121-5 ####[facility] LABCLIA [id number] [address] OF [facility] FINAL PERFORMING LAB Normal [facility] Comment on above: Order Comment: Speci men Type: TISSUE SPECIMENOrdering Facility: [facility] Address: [address] [place] [address] Result Comment: Diag nostic interpretation performed at: [facility], [address] [place], [place] [id number] CLIA# [id number] Director: Misha Prater MD Performed By: #### 6 6121-5 ####[facility] LABCLIA [id number] [place] [address] [place] GROSS DESCRIPTION Normal [facility] Comment on above: Order Comment: Speci men Type: TISSUE SPECIMENOrdering Facility: [facility] Address: [address] [place] [address] Result Comment: A. S kin, ExcisionReceived in formalin are two irregular segments of skin and subcutaneous tissue aggregating to 2.5 x 2.1 x 0.5 cm. The specimens were previously inked by the surgeon. Totally submitted in two cassettes.Gross examination performed at [facility], [address] [place] [address] 06/18/2024 3:36 AM Performed By: #### 6 6121-5 ####[facility] LABIA [id number] [place] [address] [place] Basic metabolic 2000 panelon 06-16-2024 Anion gap [Moles/Vol] 9 mmol/L Normal 8-[address] [facility] Comment on above: Order Comment: Speci men Type: BLOOD SPECIMENOrdering Facility: [facility] Address: [address] [place] [address] Performed By: #### 2 4321-2 ####[facility] [id number] [place] [address] [place] Calcium [Mass/Vol] 9.4 mg/dL Normal 8.5-10.2 [facility] Comment on above: Order Comment: Speci men Type: BLOOD SPECIMENOrdering Facility: [facility] Address: [address] [place] [address] Performed By: #### 2 4321-2 ####[facility]ITALLIA [id number] [place] [address] [place] Chloride [Moles/Vol] 100 mmol/L Normal 98-107 [facility] Comment on above: Order Comment: Speci men Type: BLOOD SPECIMENOrdering Facility: [facility] Address: [address] [place] [address] Performed By: #### 2 4321-2 ####[facility] CORONANCMJ [id number] [place] [address] [place] CO2 [Moles/Vol] 29 mmol/L Normal 22-30 [facility] Comment on above: Order Comment: Speci men Type: BLOOD SPECIMENOrdering Facility: [facility] Address: [address] [place] [address] Performed By: #### 2 4321-2 ####[facility] [id number] [place] [address] [place] Creatinine [Mass/Vol] 1.00 mg/dL Normal 0.73-1.[address] [facility] Comment on above: Order Comment: Speci men Type: BLOOD SPECIMENOrdering Facility: [facility] Address: [address] [place] [address] Performed By: #### 2 4321-2 ####[facility] BEACHESNCLIA [id number] [address] OF [facility] Creatinine and Glomerular filtration rate.predicted panel (S/P/Bld) 80 mL/min/1.73m??? Normal >=60 [facility] Comment on above: Order Comment: Speci men Type: BLOOD SPECIMENOrdering Facility: [facility] Address: [address] [place] [address] Result Comment: Beth mated Glomerular Filtration Rate [...] actual GFR. Performed By: #### 2 4321-2 ####[facility] HOSPITALWNCA [id number] [place] [address] [place] Glucose [Mass/Vol] 149 mg/dL High 74-99 [facility] Comment on above: Order Comment: Speci men Type: BLOOD SPECIMENOrdering Facility: [facility] Address: [address] [place], [place] [address] Result Comment: The [place] Diabetes Association (ADA) provides guidance for cutoff [...] Standards of Medical Care in Diabetes 2016, [place] [employer]. Diabetes Care. 2016.39(Suppl 1). Performed By: #### 2 4321-2 ####[facility] HOSPITALWKYLIA [id number] [place] [address] [place] Potassium [Moles/Vol] 3.9 mmol/L Normal 3.7-5.[address] [facility] Comment on above: Order Comment: Speci men Type: BLOOD SPECIMENOrdering Facility: [facility] Address: [address] [place], [place] [address] Performed By: #### 2 4321-2 ####[facility] HOSPITALWNCLIA [id number] [place] [address] [place] Sodium [Moles/Vol] 138 mmol/L Normal 136-144 [facility] Comment on above: Order Comment: Speci men Type: BLOOD SPECIMENOrdering Facility: [facility] Address: [address] [place], [place] [address] Performed By: #### 2 4321-2 ####[facility]PITALLIA [id number] [place] [address] [place] Urea nitrogen [Mass/Vol] 21 mg/dL Normal 9-24 [facility] Comment on above: Order Comment: Speci men Type: BLOOD SPECIMENOrdering Facility: [facility] Address: [address] [place] [address] Performed By: #### 2 4321-2 ####[facility]PITALLIA [id number] [place] [address] [place] CBC W Auto Differential pane l (Bld)on 06-16-2024 Basophils (Bld) [#/Vol] 10*3/uL Normal <0.11 [facility] Comment on above: Order Comment: Speci men Type: BLOOD SPECIMENOrdering Facility: [facility] Address: [address] [place] [address] Performed By: #### 5 7021-8 ####[facility] [id number] [place] [address] [place] Basophils/100 WBC (Bld) 0.3 % Normal [facility] Comment on above: Order Comment: Speci men Type: BLOOD SPECIMENOrdering Facility: [facility] Address: [address] [place] [address] Performed By: #### 5 7021-8 ####[facility] BEACHESHEAVENA [id number] [place] [address] [place] Differential cell count method Nom (Bld) Auto Normal [facility] Comment on above: Order Comment: Speci men Type: BLOOD SPECIMENOrdering Facility: [facility] Address: [address] [place] [address] Performed By: #### 5 7021-8 ####[facility] BEACHESNCLIA [id number] [place] [address] [place] Eosinophils (Bld) [#/Vol] 0.31 10*3/uL Normal <0.46 [facility] Comment on above: Order Comment: Speci men Type: BLOOD SPECIMENOrdering Facility: [facility] Address: [address] [place] [address] Performed By: #### 5 7021-8 ####[facility] BIENVENIDOMariannaNCMJ [id number] [place] [address] [place] Eosinophils/100 WBC (Bld) 5.0 % Normal [facility] Comment on above: Order Comment: Speci men Type: BLOOD SPECIMENOrdering Facility: [facility] Address: [address] [place] [address] Performed By: #### 5 7021-8 ####[facility] BEACHESNCLIShireen [id number] [place] [address] [place] Erythrocyte distribution width (RBC) [Ratio] 20.5 % High 11.5-15.0 [facility] Comment on above: Order Comment: Speci men Type: BLOOD SPECIMENOrdering Facility: [facility] Address: [address] [place] [address] Performed By: #### 5 7021-8 ####[facility] BEACHESNCA [id number] [place] [address] [place] Hematocrit (Bld) [Volume fraction] 30.5 % Low 39.0-51.0 [facility] Comment on above: Order Comment: Speci men Type: BLOOD SPECIMENOrdering Facility: [facility] Address: [address] [place] [address] Performed By: #### 5 7021-8 ####[facility] BEACHESNCLIA [id number] [place] [address] [place] Hemoglobin (Bld) [Mass/Vol] 9.2 g/dL Low 13.0-17.0 [facility] Comment on above: Order Comment: Speci men Type: BLOOD SPECIMENOrdering Facility: [facility] Address: [address] [place] [address] Performed By: #### 5 7021-8 ####[facility] MILLTOWNCLIA [id number] [place] [address] [place] Immature granulocytes (Bld) [#/Vol] 10*3/uL Normal <0.10 [facility] Comment on above: Order Comment: Speci men Type: BLOOD SPECIMENOrdering Facility: [facility] Address: [address] [place] [address] Performed By: #### 5 7021-8 ####[facility] BEACHESNCLIA [id number] [place] [address] [place] Immature granulocytes/100 WBC (Bld) 0.3 % Normal [facility] Comment on above: Order Comment: Speci men Type: BLOOD SPECIMENOrdering Facility: [facility] Address: [address] [place] [address] Performed By: #### 5 7021-8 ####[facility]PITALLIA [id number] [place] [address] [place] Lymphocytes (Bld) [#/Vol] 2.02 10*3/uL Normal 1.00-4.00 [facility] Comment on above: Order Comment: Speci men Type: BLOOD SPECIMENOrdering Facility: [facility] Address: [address] [place] [address] Performed By: #### 5 7021-8 ####[facility]OSPITALLIA [id number] [place] [address] [place] Lymphocytes/100 WBC (Bld) 32.3 % Normal [facility] Comment on above: Order Comment: Speci men Type: BLOOD SPECIMENOrdering Facility: [facility] Address: [address] [place] [address] Performed By: #### 5 7021-8 ####[facility] HOSPITALLIA [id number] [place] [address] [place] MCH (RBC) [Entitic mass] 24.5 pg Low 26.0-34.0 [facility] Comment on above: Order Comment: Speci men Type: BLOOD SPECIMENOrdering Facility: [facility] Address: [address] [place] [address] Performed By: #### 5 7021-8 ####[facility] [id number] [place] [address] [place] MCHC (RBC) [Mass/Vol] 30.2 g/dL Low 30.5-36.[address] [facility] Comment on above: Order Comment: Speci men Type: BLOOD SPECIMENOrdering Facility: [facility] Address: [address] [place] [address] Performed By: #### 5 7021-8 ####[facility] [id number] [place] [address] [place] MCV (RBC) [Entitic vol] 81.1 fL Normal 80.0-100.0 [facility] Comment on above: Order Comment: Speci men Type: BLOOD SPECIMENOrdering Facility: [facility] Address: [address] [place] [address] Performed By: #### 5 7021-8 ####[facility] BEACHESNCLIA [id number] [place] [address] [place] Monocytes (Bld) [#/Vol] 0.47 10*3/uL Normal <0.87 [facility] Comment on above: Order Comment: Speci men Type: BLOOD SPECIMENOrdering Facility: [facility] Address: [address] [place] [address] Performed By: #### 5 7021-8 ####[facility] BEACHESNCLI [id number] [address] [place] Monocytes/100 WBC (Bld) 7.5 % Normal [facility] Comment on above: Order Comment: Speci men Type: BLOOD SPECIMENOrdering Facility: [facility] Address: [address] [place] [address] Performed By: #### 5 7021-8 ####[facility] BIENVENIDOQUIMBYANGELICALIA [id number] [place] [address] [place] Neutrophils (Bld) [#/Vol] 3.42 10*3/uL Normal 1.45-7.50 [facility] Comment on above: Order Comment: Speci men Type: BLOOD SPECIMENOrdering Facility: [facility] Address: [address] [place] [address] Performed By: #### 5 7021-8 ####[facility] [id number] [place] [address] [place] Neutrophils/100 WBC (Bld) 54.6 % Normal [facility] Comment on above: Order Comment: Speci men Type: BLOOD SPECIMENOrdering Facility: [facility] Address: [address] [place] [address] Performed By: #### 5 7021-8 ####[facility] [id number] [place] [address] [place] Nucleated RBC (Bld) [#/Vol] 10*3/uL Normal <0.01 [facility] Comment on above: Order Comment: Speci men Type: BLOOD SPECIMENOrdering Facility: [facility] Address: [address] [place] [address] Performed By: #### 5 7021-8 ####[facility]PITALLIA [id number] [place] [address] [place] Nucleated RBC/100 WBC (Bld) [Ratio] 0.0 /100 WBC Normal [facility] Comment on above: Order Comment: Speci men Type: BLOOD SPECIMENOrdering Facility: [facility] Address: [address] [place] [address] Performed By: #### 5 7021-8 ####[facility] HOSPITALWNCLIA [id number] [place] [address] [place] Platelet mean volume (Bld) [Entitic vol] 8.4 fL Low 9.0-12.7 [facility] Comment on above: Order Comment: Speci men Type: BLOOD SPECIMENOrdering Facility: [facility] Address: [address] [place] [address] Performed By: #### 5 7021-8 ####[facility]ITALLIA [id number] [place] [address] [place] Platelets (Bld) [#/Vol] 207 10*3/uL Normal 150-400 [facility] Comment on above: Order Comment: Speci men Type: BLOOD SPECIMENOrdering Facility: [facility] Address: [address] [place] [address] Performed By: #### 5 7021-8 ####[facility] [id number] [place] [address] [place] RBC (Bld) [#/Vol] 3.76 10*6/uL Low 4.20-6.00 [facility] Comment on above: Order Comment: Speci men Type: BLOOD SPECIMENOrdering Facility: [facility] Address: [address] [place] [address] Performed By: #### 5 7021-8 ####[facility]PITALLIA [id number] [place] [address] [place] WBC (Bld) [#/Vol] 6.26 10*3/uL Normal 3.70-11.00 [facility] Comment on above: Order Comment: Speci men Type: BLOOD SPECIMENOrdering Facility: [facility] Address: [address] [place] [address] Performed By: #### 5 7021-8 ####[facility]PITALLIA [id number] [place] [address] [place] PSA SerPl-mCncon 06-16-2024 Prostate specific Ag [Mass/Vol] ng/mL Normal <2.60 [facility] Comment on above: Order Comment: Speci men Type: BLOOD SPECIMENOrdering Facility: [facility] Address: [address] [place] [address] Result Comment: Tota l PSA test methodology used is the Electrochemiluminescence Immunoassay by [employer]. Total PSA values by differing methodologies cannot be interchanged. Performed By: #### 2 857-1 ####[facility] LABCLIA [id number] [place] [address] [place] Basic metabolic 2000 panelon 05-12-2024 Anion gap [Moles/Vol] 8 mmol/L Normal 8-[address] [facility] Comment on above: Order Comment: Speci men Type: BLOOD SPECIMENOrdering Facility: [facility] Address: [address] [place] [address] Performed By: #### 2 4321-2 ####[facility] MILLTOWNCLIA [id number] [place] [address] [place] Calcium [Mass/Vol] 9.3 mg/dL Normal 8.5-10.2 [facility] Comment on above: Order Comment: Speci men Type: BLOOD SPECIMENOrdering Facility: [facility] Address: [address] [place] [address] Performed By: #### 2 4321-2 ####[facility] MILLTOWNCLIA [id number] [place] [address] [place] Chloride [Moles/Vol] 103 mmol/L Normal 98-107 [facility] Comment on above: Order Comment: Speci men Type: BLOOD SPECIMENOrdering Facility: [facility] Address: [address] [place] [address] Performed By: #### 2 4321-2 ####[facility] MILLTOWNCLIA [id number] [place] [address] [place] CO2 [Moles/Vol] 28 mmol/L Normal 22-30 [facility] Comment on above: Order Comment: Speci men Type: BLOOD SPECIMENOrdering Facility: [facility] Address: [address] [place] [address] Performed By: #### 2 4321-2 ####[facility]ESNCC[facility] [id number] [place] [address] [place] Creatinine [Mass/Vol] 0.97 mg/dL Normal 0.73-1.[address] [facility] Comment on above: Order Comment: Speci men Type: BLOOD SPECIMENOrdering Facility: [facility] Address: [address] [place] [address] Performed By: #### 2 4321-2 ####[facility] BEACHESNCLIA [id number] [place] [address] [place] Creatinine and Glomerular filtration rate.predicted panel (S/P/Bld) 83 mL/min/1.73m??? Normal >=60 [facility] Comment on above: Order Comment: Speci men Type: BLOOD SPECIMENOrdering Facility: [facility] Address: [address] [place] [address] Result Comment: Beth mated Glomerular Filtration Rate [...] actual GFR. Performed By: #### 2 4321-2 ####[facility] HOSPITALWNCLIA [id number] [place] [address] [place] Glucose [Mass/Vol] 133 mg/dL High 74-99 [facility] Comment on above: Order Comment: Speci men Type: BLOOD SPECIMENOrdering Facility: [facility] Address: [address] [place] [address] Result Comment: The [place] Diabetes Association (ADA) provides guidance for cutoff [...] Standards of Medical Care in Diabetes 2016, [place] Diabetes Association. Diabetes Care. 2016.39(Suppl 1). Performed By: #### 2 4321-2 ####[facility] [id number] [place] [address] [place] Potassium [Moles/Vol] 4.1 mmol/L Normal 3.7-5.[address] [facility] Comment on above: Order Comment: Speci men Type: BLOOD SPECIMENOrdering Facility: [facility] Address: [address] [place], [place] [address] Performed By: #### 2 4321-2 ####[facility] [id number] [place] [address] [place] Sodium [Moles/Vol] 139 mmol/L Normal 136-144 [facility] Comment on above: Order Comment: Speci men Type: BLOOD SPECIMENOrdering Facility: [facility] Address: [address] [place] [id number] Performed By: #### 2 4321-2 ####[facility] [id number] [place] [address] [place] Urea nitrogen [Mass/Vol] 18 mg/dL Normal 9-24 [facility] Comment on above: Order Comment: Speci men Type: BLOOD SPECIMENOrdering Facility: [facility] Address: [address] [place] [address] Performed By: #### 2 4321-2 ####[facility] MILLJAMESLIA [id number] [place] [address] [place] CBC W Auto Differential pane l (Bld)on 05-12-2024 Basophils (Bld) [#/Vol] 10*3/uL Normal <0.11 [facility] Comment on above: Order Comment: Speci men Type: BLOOD SPECIMENOrdering Facility: [facility] Address: [address] [place] [address] Performed By: #### 5 7021-8 ####[facility] BIENVENIDOCAESARWANGELICALIA [id number] [place] [address] [place] Basophils/100 WBC (Bld) 0.2 % Normal [facility] Comment on above: Order Comment: Speci men Type: BLOOD SPECIMENOrdering Facility: [facility] Address: [address] [place] [address] Performed By: #### 5 7021-8 ####[facility] HOSPITALDONA [id number] [place] [address] [place] Differential cell count method Nom (Bld) Auto Normal [facility] Comment on above: Order Comment: Speci men Type: BLOOD SPECIMENOrdering Facility: [facility] Address: [address] [place] [address] Performed By: #### 5 7021-8 ####[facility] MILLCAESARWNCLIA [id number] [place] [address] [place] Eosinophils (Bld) [#/Vol] 0.25 10*3/uL Normal <0.46 [facility] Comment on above: Order Comment: Speci men Type: BLOOD SPECIMENOrdering Facility: [facility] Address: [address] [place] [address] Performed By: #### 5 7021-8 ####[facility] [id number] [place] [address] [place] Eosinophils/100 WBC (Bld) 4.5 % Normal [facility] Comment on above: Order Comment: Speci men Type: BLOOD SPECIMENOrdering Facility: [facility] Address: [address] [place] [address] Performed By: #### 5 7021-8 ####[facility] [id number] [place] [address] [place] Erythrocyte distribution width (RBC) [Ratio] 20.5 % High 11.5-15.0 [facility] Comment on above: Order Comment: Speci men Type: BLOOD SPECIMENOrdering Facility: [facility] Address: [address] [place] [address] Performed By: #### 5 7021-8 ####[facility] [id number] [place] [address] [place] Hematocrit (Bld) [Volume fraction] 32.0 % Low 39.0-51.0 [facility] Comment on above: Order Comment: Speci men Type: BLOOD SPECIMENOrdering Facility: [facility] Address: [address] [place] [address] Performed By: #### 5 7021-8 ####[facility] [id number] [place] [address] [place] Hemoglobin (Bld) [Mass/Vol] 9.7 g/dL Low 13.0-17.0 [facility] Comment on above: Order Comment: Speci men Type: BLOOD SPECIMENOrdering Facility: [facility] Address: [address] [place] [address] Performed By: #### 5 7021-8 ####[facility] BEACHESNCLI [id number] [place] [address] [place] Immature granulocytes (Bld) [#/Vol] 10*3/uL Normal <0.10 [facility] Comment on above: Order Comment: Speci men Type: BLOOD SPECIMENOrdering Facility: [facility] Address: [address] [place] [address] Performed By: #### 5 7021-8 ####[facility] [id number] [place] [address] [place] Immature granulocytes/100 WBC (Bld) 0.4 % Normal [facility] Comment on above: Order Comment: Speci men Type: BLOOD SPECIMENOrdering Facility: [facility] Address: [address] [place] [address] Performed By: #### 5 7021-8 ####[facility] [id number] [place] [address] [place] Lymphocytes (Bld) [#/Vol] 2.47 10*3/uL Normal 1.00-4.00 [facility] Comment on above: Order Comment: Speci men Type: BLOOD SPECIMENOrdering Facility: [facility] Address: [address] [place] [address] Performed By: #### 5 7021-8 ####[facility] [id number] [place] [address] [place] Lymphocytes/100 WBC (Bld) 44.2 % Normal [facility] Comment on above: Order Comment: Speci men Type: BLOOD SPECIMENOrdering Facility: [facility] Address: [address] [place] [address] Performed By: #### 5 7021-8 ####[facility] [id number] [place] [address] [place] MCH (RBC) [Entitic mass] 24.5 pg Low 26.0-34.0 [facility] Comment on above: Order Comment: Speci men Type: BLOOD SPECIMENOrdering Facility: [facility] Address: [address] [place] [address] Performed By: #### 5 7021-8 ####[facility] BIENVENIDOMariannaNCLIA [id number] [place] [address] [place] MCHC (RBC) [Mass/Vol] 30.3 g/dL Low 30.5-36.[address] [facility] Comment on above: Order Comment: Speci men Type: BLOOD SPECIMENOrdering Facility: [facility] Address: [address] [place] [address] Performed By: #### 5 7021-8 ####[facility] BEACHESNCA [id number] [place] [address] [place] MCV (RBC) [Entitic vol] 80.8 fL Normal 80.0-100.0 [facility] Comment on above: Order Comment: Speci men Type: BLOOD SPECIMENOrdering Facility: [facility] Address: [address] [place] [address] Performed By: #### 5 7021-8 ####[facility] [id number] [place] [address] [place] Monocytes (Bld) [#/Vol] 0.37 10*3/uL Normal <0.87 [facility] Comment on above: Order Comment: Speci men Type: BLOOD SPECIMENOrdering Facility: [facility] Address: [address] [place] [address] Performed By: #### 5 7021-8 ####[facility] [id number] [place] [address] [place] Monocytes/100 WBC (Bld) 6.6 % Normal [facility] Comment on above: Order Comment: Speci men Type: BLOOD SPECIMENOrdering Facility: [facility] Address: [address] [place] [address] Performed By: #### 5 7021-8 ####[facility] [id number] [place] [address] [place] Neutrophils (Bld) [#/Vol] 2.47 10*3/uL Normal 1.45-7.50 [facility] Comment on above: Order Comment: Speci men Type: BLOOD SPECIMENOrdering Facility: [facility] Address: [address] [place] [address] Performed By: #### 5 7021-8 ####[facility] [id number] [place] [address] [place] Neutrophils/100 WBC (Bld) 44.1 % Normal [facility] Comment on above: Order Comment: Speci men Type: BLOOD SPECIMENOrdering Facility: [facility] Address: [address] [place] [address] Performed By: #### 5 7021-8 ####[facility] [id number] [place] [address] [place] Nucleated RBC (Bld) [#/Vol] 10*3/uL Normal <0.01 [facility] Comment on above: Order Comment: Speci men Type: BLOOD SPECIMENOrdering Facility: [facility] Address: [address] [place] [address] Performed By: #### 5 7021-8 ####[facility] [id number] [place] [address] [place] Nucleated RBC/100 WBC (Bld) [Ratio] 0.0 /100 WBC Normal [facility] Comment on above: Order Comment: Speci men Type: BLOOD SPECIMENOrdering Facility: [facility] Address: [address] [place] [address] Performed By: #### 5 7021-8 ####[facility] [id number] [place] [address] [place] Platelet mean volume (Bld) [Entitic vol] 8.4 fL Low 9.0-12.7 [facility] Comment on above: Order Comment: Speci men Type: BLOOD SPECIMENOrdering Facility: [facility] Address: [address] [place] [address] Performed By: #### 5 7021-8 ####[facility]ESNCKATERINA [id number] [place] [address] [place] Platelets (Bld) [#/Vol] 192 10*3/uL Normal 150-400 [facility] Comment on above: Order Comment: Speci men Type: BLOOD SPECIMENOrdering Facility: [facility] Address: [address] [place] [address] Performed By: #### 5 7021-8 ####[facility] [id number] [place] [address] [place] RBC (Bld) [#/Vol] 3.96 10*6/uL Low 4.20-6.00 [facility] Comment on above: Order Comment: Speci men Type: BLOOD SPECIMENOrdering Facility: [facility] Address: [address] [place] [address] Performed By: #### 5 7021-8 ####[facility]ESNCA [id number] [place] [address] [place] WBC (Bld) [#/Vol] 5.59 10*3/uL Normal 3.70-11.00 [facility] Comment on above: Order Comment: Speci men Type: BLOOD SPECIMENOrdering Facility: [facility] Address: [address] [place] [address] Performed By: #### 5 7021-8 ####[facility] [id number] [place] [address] [place] PSA SerPl-ncon 05-12-2024 Prostate specific Ag [Mass/Vol] ng/mL Normal <2.60 [facility] Comment on above: Order Comment: Speci men Type: BLOOD SPECIMENOrdering Facility: [facility] Address: [address] [place] [address] Result Comment: Tota l PSA test methodology used is the Electrochemiluminescence Immunoassay by [employer]. Total PSA values by differing methodologies cannot be interchanged. Performed By: #### 2 857-1 ####[facility] LABIA [id number] [place] [address] [place] CNPNon 2024 CNPN Normal [facility] CNOVon 05-04-2024 CNOV Normal [facility] SURGICAL PATHOLOGYon 025 CASE REPORT Normal [facility] Comment on above: Order Comment: Speci men Type: TISSUE SPECIMENOrdering Facility: [facility] Address: [address] [place] [address] Result Comment: Surg ical Pathology Report Case: [id number] Provider: Richie Dejesus MD Collected: 05/04/2024 12:50 PMOrdering Location: Dermatology Received: 05/04/2024 02:24 PMPathologist: Gabi Gonzalez MDSpecimen: Skin, Shave Biopsy, right crown scalp Performed By: #### S ####[facility] LABIA [id number] [place] [address] [place] CLINICAL HISTORY R/O nmsc Normal [facility] Comment on above: Order Comment: Speci men Type: TISSUE SPECIMENOrdering Facility: [facility] Address: [address] [place] [address] Performed By: #### S ####[facility] LABIA [id number] [place] [address] [place] DIAGNOSIS COMMENT Normal [facility] Comment on above: Order Comment: Speci men Type: TISSUE SPECIMENOrdering Facility: [facility] Address: [address] [place] [address] Result Comment: 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 The epidermis is broadly transected by the deep biopsy margin. An invasive squamous cell carcinoma cannot entirely be excluded. Clinical correlation is recommended. Performed By: #### S ####[facility] LABCLIA [id number] [address] STATES OF [facility] FINAL DIAGNOSIS Normal [facility] Comment on above: Order Comment: Speci men Type: TISSUE SPECIMENOrdering Facility: [facility] Address: [address] [place] [address] Result Comment: Jocelyn garcia, right crown scalp, shave biopsy:- Squamous cell carcinoma, see comment.CELINA/NM/oracio 05/05/2024 Performed By: #### S ####[facility] LABCLIA [id number] [address] STATES OF [facility] FINAL PERFORMING LAB Normal [facility] Comment on above: Order Comment: Speci men Type: TISSUE SPECIMENOrdering Facility: [facility] Address: [address] [place] [address] Result Comment: Diag nostic interpretation performed at: [facility], [address] [place] [address] CLIA# [id number] Director: Misha Prater MD Performed By: #### S ####[facility] LABIA [id number] [address] STATES OF [facility] GROSS DESCRIPTION Normal [facility] Comment on above: Order Comment: Speci men Type: TISSUE SPECIMENOrdering Facility: [facility] Address: [address] [place] [address] Result Comment: Jocelyn garcia, Shave BiopsyReceived in formalin is a 1.5 x 1.0 x 0.3 cm shave of skin. On the skin surface there is a 1.5 cm yellow-white slightly elevated and firm area. The specimen is trisected. Totally submitted in two cassettes.[facility] May 04, 2024 9:01 PMGross examination performed at [facility], [address] [place] [address] Performed By: #### S ####[facility] LABCLIA [id number] [place] [address] [place] Basic metabolic 2000 panelon 04-14-2024 Anion gap [Moles/Vol] 7 mmol/L Low 8-[address] [facility] Comment on above: Order Comment: Speci men Type: BLOOD SPECIMENOrdering Facility: [facility] Address: [address] [place] [address] Performed By: #### 2 4321-2 ####[facility] MILLTOWNCLIA [id number] [place] [address] [place] Calcium [Mass/Vol] 9.7 mg/dL Normal 8.5-10.2 [facility] Comment on above: Order Comment: Speci men Type: BLOOD SPECIMENOrdering Facility: [facility] Address: [address] [place] [address] Performed By: #### 2 4321-2 ####[facility] MILLTOWNCLIA [id number] [place] [address] [place] Chloride [Moles/Vol] 104 mmol/L Normal 98-107 [facility] Comment on above: Order Comment: Speci men Type: BLOOD SPECIMENOrdering Facility: [facility] Address: [address] [place] [address] Performed By: #### 2 4321-2 ####[facility] MILLTOWNCLIA [id number] [place] [address] [place] CO2 [Moles/Vol] 28 mmol/L Normal 22-30 [facility] Comment on above: Order Comment: Speci men Type: BLOOD SPECIMENOrdering Facility: [facility] Address: [address] [place] [address] Performed By: #### 2 4321-2 ####[facility] MILLTOWNCLIA [id number] [place] [address] [place] Creatinine [Mass/Vol] 0.97 mg/dL Normal 0.73-1.[address] [facility] Comment on above: Order Comment: Bassam hong Type: BLOOD SPECIMENOrdering Facility: [facility] Address: [address] [place] [address] Performed By: #### 2 4321-2 ####[facility] [id number] [place] [address] [place] Creatinine and Glomerular filtration rate.predicted panel (S/P/Bld) 84 mL/min/1.73m??? Normal >=60 [facility] Comment on above: Order Comment: Bassam hong Type: BLOOD SPECIMENOrdering Facility: [facility] Address: [address] [place] [address] Result Comment: Beth mated Glomerular Filtration Rate [...] actual GFR. Performed By: #### 2 4321-2 ####[facility] [id number] [place] [address] [place] Glucose [Mass/Vol] 135 mg/dL High 74-99 [facility] Comment on above: Order Comment: Bassam hong Type: BLOOD SPECIMENOrdering Facility: [facility] Address: [address] [place] [address] Result Comment: The [place] Diabetes Association (ADA) provides guidance for cutoff [...] Standards of Medical Care in Diabetes 2016, [place] [employer] Association. Diabetes Care. 2016.39(Suppl 1). Performed By: #### 2 4321-2 ####[facility] [id number] [place] [address] [place] Potassium [Moles/Vol] 3.9 mmol/L Normal 3.7-5.[address] [facility] Comment on above: Order Comment: Speci men Type: BLOOD SPECIMENOrdering Facility: [facility] Address: [address] [place] [address] Performed By: #### 2 4321-2 ####[facility] [id number] [place] [address] [place] Sodium [Moles/Vol] 139 mmol/L Normal 136-144 [facility] Comment on above: Order Comment: Speci men Type: BLOOD SPECIMENOrdering Facility: [facility] Address: [address] [place] [address] Performed By: #### 2 4321-2 ####[facility] [id number] [place] [address] [place] Urea nitrogen [Mass/Vol] 25 mg/dL High 9-24 [facility] Comment on above: Order Comment: Speci men Type: BLOOD SPECIMENOrdering Facility: [facility] Address: [address] [place] [address] Performed By: #### 2 4321-2 ####[facility] [id number] [place] [address] [place] CBC W Auto Differential pane l (Bld)on 04-14-2024 Basophils (Bld) [#/Vol] 10*3/uL Normal <0.11 [facility] Comment on above: Order Comment: Speci men Type: BLOOD SPECIMENOrdering Facility: [facility] Address: [address] [place] [address] Performed By: #### 5 7021-8 ####[facility] BIENVENIDOWNCLIA [id number] [place] [address] [place] Basophils/100 WBC (Bld) 0.2 % Normal [facility] Comment on above: Order Comment: Speci men Type: BLOOD SPECIMENOrdering Facility: [facility] Address: [address] [place] [address] Performed By: #### 5 7021-8 ####[facility] [id number] [place] [address] [place] Differential cell count method Nom (Bld) Auto Normal [facility] Comment on above: Order Comment: Speci men Type: BLOOD SPECIMENOrdering Facility: [facility] Address: [address] [place] [address] Performed By: #### 5 7021-8 ####[facility] [id number] [place] [address] [place] Eosinophils (Bld) [#/Vol] 0.18 10*3/uL Normal <0.46 [facility] Comment on above: Order Comment: Speci men Type: BLOOD SPECIMENOrdering Facility: [facility] Address: [address] [place] [address] Performed By: #### 5 7021-8 ####[facility] MILLWNCLIA [id number] [place] [address] [place] Eosinophils/100 WBC (Bld) 3.6 % Normal [facility] Comment on above: Order Comment: Speci men Type: BLOOD SPECIMENOrdering Facility: [facility] Address: [address] [place] [address] Performed By: #### 5 7021-8 ####[facility] [id number] [place] [address] [place] Erythrocyte distribution width (RBC) [Ratio] 20.9 % High 11.5-15.0 [facility] Comment on above: Order Comment: Speci men Type: BLOOD SPECIMENOrdering Facility: [facility] Address: [address] [place] [address] Performed By: #### 5 7021-8 ####[facility]PITALKATERIN [id number] [place] [address] [place] Hematocrit (Bld) [Volume fraction] 32.0 % Low 39.0-51.0 [facility] Comment on above: Order Comment: Speci men Type: BLOOD SPECIMENOrdering Facility: [facility] Address: [address] [place] [address] Performed By: #### 5 7021-8 ####[facility] [id number] [place] [address] [place] Hemoglobin (Bld) [Mass/Vol] 9.5 g/dL Low 13.0-17.0 [facility] Comment on above: Order Comment: Speci men Type: BLOOD SPECIMENOrdering Facility: [facility] Address: [address] [place] [address] Performed By: #### 5 7021-8 ####[facility]ITALKATERIN [id number] [place] [address] [place] Immature granulocytes (Bld) [#/Vol] 10*3/uL Normal <0.10 [facility] Comment on above: Order Comment: Speci men Type: BLOOD SPECIMENOrdering Facility: [facility] Address: [address] [place] [address] Performed By: #### 5 7021-8 ####[facility] [id number] [place] [address] [place] Immature granulocytes/100 WBC (Bld) 0.4 % Normal [facility] Comment on above: Order Comment: Speci men Type: BLOOD SPECIMENOrdering Facility: [facility] Address: [address] [place] [address] Performed By: #### 5 7021-8 ####[facility] [id number] [place] [address] [place] Lymphocytes (Bld) [#/Vol] 1.69 10*3/uL Normal 1.00-4.00 [facility] Comment on above: Order Comment: Speci men Type: BLOOD SPECIMENOrdering Facility: [facility] Address: [address] [place] [address] Performed By: #### 5 7021-8 ####[facility] [id number] [place] [address] [place] Lymphocytes/100 WBC (Bld) 33.8 % Normal [facility] Comment on above: Order Comment: Speci men Type: BLOOD SPECIMENOrdering Facility: [facility] Address: [address] [place] [address] Performed By: #### 5 7021-8 ####[facility] [id number] [place] [address] [place] MCH (RBC) [Entitic mass] 24.4 pg Low 26.0-34.0 [facility] Comment on above: Order Comment: Speci men Type: BLOOD SPECIMENOrdering Facility: [facility] Address: [address] [place], [place] [address] Performed By: #### 5 7021-8 ####[facility] [id number] [place] [address] [place] MCHC (RBC) [Mass/Vol] 29.7 g/dL Low 30.5-36.[address] [facility] Comment on above: Order Comment: Speci men Type: BLOOD SPECIMENOrdering Facility: [facility] Address: [address] [place] [address] Performed By: #### 5 7021-8 ####[facility] BIENVENIDOQUIMBYCINDY [id number] [place] [address] [place] MCV (RBC) [Entitic vol] 82.3 fL Normal 80.0-100.0 [facility] Comment on above: Order Comment: Speci men Type: BLOOD SPECIMENOrdering Facility: [facility] Address: [address] [place] [address] Performed By: #### 5 7021-8 ####[facility] [id number] [place] [address] [place] Monocytes (Bld) [#/Vol] 0.28 10*3/uL Normal <0.87 [facility] Comment on above: Order Comment: Speci men Type: BLOOD SPECIMENOrdering Facility: [facility] Address: [address] [place] [address] Performed By: #### 5 7021-8 ####[facility] [id number] [place] [address] [place] Monocytes/100 WBC (Bld) 5.6 % Normal [facility] Comment on above: Order Comment: Speci men Type: BLOOD SPECIMENOrdering Facility: [facility] Address: [address] [place] [address] Performed By: #### 5 7021-8 ####[facility] HOSPITALLIShireen [id number] [place] [address] [place] Neutrophils (Bld) [#/Vol] 2.82 10*3/uL Normal 1.45-7.50 [facility] Comment on above: Order Comment: Speci men Type: BLOOD SPECIMENOrdering Facility: [facility] Address: [address] [place] [address] Performed By: #### 5 7021-8 ####[facility] BIENVENIDOQUIMBYANGELICALIA [id number] [place] [address] [place] Neutrophils/100 WBC (Bld) 56.4 % Normal [facility] Comment on above: Order Comment: Speci men Type: BLOOD SPECIMENOrdering Facility: [facility] Address: [address] [place] [address] Performed By: #### 5 7021-8 ####[facility] [id number] [place] [address] [place] Nucleated RBC (Bld) [#/Vol] 10*3/uL Normal <0.01 [facility] Comment on above: Order Comment: Speci men Type: BLOOD SPECIMENOrdering Facility: [facility] Address: [address] [place] [address] Performed By: #### 5 7021-8 ####[facility] [id number] [place] [address] [place] Nucleated RBC/100 WBC (Bld) [Ratio] 0.0 /100 WBC Normal [facility] Comment on above: Order Comment: Speci men Type: BLOOD SPECIMENOrdering Facility: [facility] Address: [address] [place] [address] Performed By: #### 5 7021-8 ####[facility] [id number] [place] [address] [place] Platelet mean volume (Bld) [Entitic vol] 8.3 fL Low 9.0-12.7 [facility] Comment on above: Order Comment: Speci men Type: BLOOD SPECIMENOrdering Facility: [facility] Address: [address] [place] [address] Performed By: #### 5 7021-8 ####[facility]ESNCL[facility] [id number] [place] [address] [place] Platelets (Bld) [#/Vol] 181 10*3/uL Normal 150-400 [facility] Comment on above: Order Comment: Speci men Type: BLOOD SPECIMENOrdering Facility: [facility] Address: [address] [place] [address] Performed By: #### 5 7021-8 ####[facility] BEACHESNCLIA [id number] [place] [address] [place] RBC (Bld) [#/Vol] 3.89 10*6/uL Low 4.20-6.00 [facility] Comment on above: Order Comment: Speci men Type: BLOOD SPECIMENOrdering Facility: [facility] Address: [address] [place] [address] Performed By: #### 5 7021-8 ####[facility] BEACHESNCA [id number] [place] [address] [place] WBC (Bld) [#/Vol] 5.00 10*3/uL Normal 3.70-11.00 [facility] Comment on above: Order Comment: Speci men Type: BLOOD SPECIMENOrdering Facility: [facility] Address: [address] [place] [address] Performed By: #### 5 7021-8 ####[facility] [id number] [place] [address] [place] PSA SerPl-mCncon 04-14-2024 Prostate specific Ag [Mass/Vol] ng/mL Normal <2.60 [facility] Comment on above: Order Comment: Speci men Type: BLOOD SPECIMENOrdering Facility: [facility] Address: [address] [place] [address] Result Comment: Tota l PSA test methodology used is the Electrochemiluminescence Immunoassay by [employer]. Total PSA values by differing methodologies cannot be interchanged. Performed By: #### 2 857-1 ####[facility] LABCLIA [id number] [address] STATES [facility] CNPNon 04-05-2024 CNPN Normal [facility] CNTHERAPYon 04-01-2024 CNTHERAPY OT/PT/Speech Visit ([facility]) -- LUTHER CASTILLO ([id number]) 1955 M Date Time Provider Department 04/01/24 2:15 PM ENDY CURRAN [facility] Date Time Provider Department [place] 04/01/2024 2:15 PM [id number], CYNTHIA*[facility] M Reason for Visit: [...] in the MR contrast administration guidelines link. [facility] [id number] 03-24-2024 [id number] HNO ID: [id number] Author: ENDY CURRAN PT Service: ? Author Type: Physical Therapist Type: [id number] Filed: 03/24/2024 17:11 Note Text: [facility] Physical Therapy Plan of Care Certification Patient Name: Luther Castillo : 1955 [facility] #: [id number] Date: 03/24/2024 To: ToneylogCatherine verduzco APRN, [employer]ORTER From Therapist: Endy Curran PT, DERRICK RE: [...] [place] [employer]) Patient Goals: To decrease lower back and L hip pain (Improving) Time Frame for Goals and Treatment : 05/07/24 Planned Interventions, Frequency, and Duration: 2x/week, 5 weeks Total Number of Visits Planned: 10 Patient to be seen for Therapeutic exercise (04655), Manual therapy (33106), Therapeutic activities (87446), Self-[place] [facility] management (62130), Patient/Family/Caregiver Education, Body Mechanics Training PLAN FOR NEXT VISIT: Continue to progress LE strengthening with increasing repetitions as pt tolerates. For further details regarding this patient refer to the Physical Therapy electronically documented visit dated 03/24/2024. Provider Attestation I have reviewed the treatment plan for Luther Castillo, [facility]# [id number] for the period of 03/24/24 -- 05/07/24, established on 03/24/2024. Signature certifies the need for therapy services. [facility] CNTHERAPYon 03-24-2024 CNTHERAPY [facility] -- LUTHER CASTILLO ([id number]) 1955 M Date Time Provider Department 03/24/24 2:15 PM ENDY CURRAN [facility] Date Time Provider Department Center 03/24/2024 2:15 PM [id number], CYNTHIA*[facility] M Reason for Visit: [...] the MR contrast administration guidelines link. Normal [facility] CNOVon 03-19-2024 CNOV Normal [facility] Basic metabolic 2000 panelon 03-17-2024 Anion gap [Moles/Vol] 9 mmol/L Normal 8-[address] [facility] Comment on above: Order Comment: Speci men Type: BLOOD SPECIMENOrdering Facility: [facility] Address: [address] [place] [address] Performed By: #### 2 4321-2 ####[facility] [id number] [place] [address] [place] Calcium [Mass/Vol] 9.2 mg/dL Normal 8.5-10.2 [facility] Comment on above: Order Comment: Speci men Type: BLOOD SPECIMENOrdering Facility: [facility] Address: [address] [place] [address] Performed By: #### 2 4321-2 ####[facility] [id number] [place] [address] [place] Chloride [Moles/Vol] 103 mmol/L Normal 98-107 [facility] Comment on above: Order Comment: Speci men Type: BLOOD SPECIMENOrdering Facility: [facility] Address: [address] [place], [place] [address] Performed By: #### 2 4321-2 ####[facility] [facility] [id number] [place] [address] [place] CO2 [Moles/Vol] 27 mmol/L Normal 22-30 [facility] Comment on above: Order Comment: Speci men Type: BLOOD SPECIMENOrdering Facility: [facility] Address: [address] [place] [address] Performed By: #### 2 4321-2 ####[facility] [id number] [place] [address] [place] Creatinine [Mass/Vol] 1.00 mg/dL Normal 0.73-1.[address] [facility] Comment on above: Order Comment: Speci men Type: BLOOD SPECIMENOrdering Facility: [facility] Address: [address] [place] [address] Performed By: #### 2 4321-2 ####[facility] [id number] [address] [place] Creatinine and Glomerular filtration rate.predicted panel (S/P/Bld) 81 mL/min/1.73m??? Normal >=60 [facility] Comment on above: Order Comment: Speci men Type: BLOOD SPECIMENOrdering Facility: [facility] Address: [address] [place] [address] Result Comment: Beth mated Glomerular Filtration Rate [...] actual GFR. Performed By: #### 2 4321-2 ####[facility] HOSPITALWNCLIA [id number] [place] [id number] [place] Glucose [Mass/Vol] 94 mg/dL Normal 74-99 [facility] Comment on above: Order Comment: Speci men Type: BLOOD SPECIMENOrdering Facility: [facility] Address: [address] [place], [place] [address] Result Comment: The [place] Diabetes Association (ADA) provides guidance for cutoff [...] Standards of Medical Care in Diabetes 2016, [place] Diabetes Association. Diabetes Care. 2016.39(Suppl 1). Performed By: #### 2 4321-2 ####[facility] MILLTOWNCLIA [id number] [place] [address] [place] Potassium [Moles/Vol] 4.0 mmol/L Normal 3.7-5.[address] [facility] Comment on above: Order Comment: Speci men Type: BLOOD SPECIMENOrdering Facility: [facility] Address: [address] [place], [place] [address] Performed By: #### 2 4321-2 ####[facility] MILLTOWNCLIA [id number] [place] [address] [place] Sodium [Moles/Vol] 139 mmol/L Normal 136-144 [facility] Comment on above: Order Comment: Speci men Type: BLOOD SPECIMENOrdering Facility: [facility] Address: [address] [place], [place] [address] Performed By: #### 2 4321-2 ####[facility] MILLTOWNCLIA [id number] [place] [address] [place] Urea nitrogen [Mass/Vol] 19 mg/dL Normal 9-24 [facility] Comment on above: Order Comment: Speci men Type: BLOOD SPECIMENOrdering Facility: [facility] Address: [address] [place] [address] Performed By: #### 2 4321-2 ####[facility] [id number] [place] [address] [place] CBC W Auto Differential pane l (Bld)on 03-17-2024 Basophils (Bld) [#/Vol] 10*3/uL Normal <0.11 [facility] Comment on above: Order Comment: Speci men Type: BLOOD SPECIMENOrdering Facility: [facility] Address: [address] [place] [address] Performed By: #### 5 7021-8 ####[facility] [id number] [place] [address] [place] Basophils/100 WBC (Bld) 0.2 % Normal [facility] Comment on above: Order Comment: Speci men Type: BLOOD SPECIMENOrdering Facility: [facility] Address: [address] [place] [address] Performed By: #### 5 7021-8 ####[facility] [id number] [place] [address] [place] Differential cell count method Nom (Bld) Auto Normal [facility] Comment on above: Order Comment: Speci men Type: BLOOD SPECIMENOrdering Facility: [facility] Address: [address] [place] [address] Performed By: #### 5 7021-8 ####[facility] [id number] [place] [address] [place] Eosinophils (Bld) [#/Vol] 0.25 10*3/uL Normal <0.46 [facility] Comment on above: Order Comment: Speci men Type: BLOOD SPECIMENOrdering Facility: [facility] Address: [address] [place] [address] Performed By: #### 5 7021-8 ####[facility] BIENVENIDOESTHER [id number] [place] [address] [place] Eosinophils/100 WBC (Bld) 4.3 % Normal [facility] Comment on above: Order Comment: Speci men Type: BLOOD SPECIMENOrdering Facility: [facility] Address: [address] [place] [address] Performed By: #### 5 7021-8 ####[facility]ESNCMJ [id number] [place] [address] [place] Erythrocyte distribution width (RBC) [Ratio] 20.0 % High 11.5-15.0 [facility] Comment on above: Order Comment: Speci men Type: BLOOD SPECIMENOrdering Facility: [facility] Address: [address] [place] [address] Performed By: #### 5 7021-8 ####[facility] BEACHESNCL[facility] [id number] [place] [address] [place] Hematocrit (Bld) [Volume fraction] 33.0 % Low 39.0-51.0 [facility] Comment on above: Order Comment: Speci men Type: BLOOD SPECIMENOrdering Facility: [facility] Address: [address] [place] [address] Performed By: #### 5 7021-8 ####[facility] BEACHESNCL[facility] [id number] [place] [address] [place] Hemoglobin (Bld) [Mass/Vol] 9.9 g/dL Low 13.0-17.0 [facility] Comment on above: Order Comment: Speci men Type: BLOOD SPECIMENOrdering Facility: [facility] Address: [address] [place] [address] Performed By: #### 5 7021-8 ####[facility] MILLWNCLIA [id number] [place] [address] [place] Immature granulocytes (Bld) [#/Vol] 10*3/uL Normal <0.10 [facility] Comment on above: Order Comment: Speci men Type: BLOOD SPECIMENOrdering Facility: [facility] Address: [address] [place] [address] Performed By: #### 5 7021-8 ####[facility] HOSPITALLIA [id number] [place] [address] [place] Immature granulocytes/100 WBC (Bld) 0.2 % Normal [facility] Comment on above: Order Comment: Speci men Type: BLOOD SPECIMENOrdering Facility: [facility] Address: [address] [place] [address] Performed By: #### 5 7021-8 ####[facility] [id number] [place] [address] [place] Lymphocytes (Bld) [#/Vol] 2.61 10*3/uL Normal 1.00-4.00 [facility] Comment on above: Order Comment: Speci men Type: BLOOD SPECIMENOrdering Facility: [facility] Address: [address] [place] [address] Performed By: #### 5 7021-8 ####[facility] [id number] [place] [address] [place] Lymphocytes/100 WBC (Bld) 45.1 % Normal [facility] Comment on above: Order Comment: Speci men Type: BLOOD SPECIMENOrdering Facility: [facility] Address: [address] [place] [address] Performed By: #### 5 7021-8 ####[facility] [id number] [place] [address] [place] MCH (RBC) [Entitic mass] 24.6 pg Low 26.0-34.0 [facility] Comment on above: Order Comment: Speci men Type: BLOOD SPECIMENOrdering Facility: [facility] Address: [address] [place] [address] Performed By: #### 5 7021-8 ####[facility] [id number] [place] [address] [place] MCHC (RBC) [Mass/Vol] 30.0 g/dL Low 30.5-36.[address] [facility] Comment on above: Order Comment: Speci men Type: BLOOD SPECIMENOrdering Facility: [facility] Address: [address] [place], [place] [address] Performed By: #### 5 7021-8 ####[facility] [id number] [place] [address] [place] MCV (RBC) [Entitic vol] 81.9 fL Normal 80.0-100.0 [facility] Comment on above: Order Comment: Speci men Type: BLOOD SPECIMENOrdering Facility: [facility] Address: [address] [place] [address] Performed By: #### 5 7021-8 ####[facility] [id number] [place] [address] [place] Monocytes (Bld) [#/Vol] 0.41 10*3/uL Normal <0.87 [facility] Comment on above: Order Comment: Speci men Type: BLOOD SPECIMENOrdering Facility: [facility] Address: [address] [place] [address] Performed By: #### 5 7021-8 ####[facility] [id number] [address] [place] Monocytes/100 WBC (Bld) 7.1 % Normal [facility] Comment on above: Order Comment: Speci men Type: BLOOD SPECIMENOrdering Facility: [facility] Address: [address] [place] [address] Performed By: #### 5 7021-8 ####[facility] BIENVENIDOTOWNCLIA [id number] [place] [address] [place] Neutrophils (Bld) [#/Vol] 2.50 10*3/uL Normal 1.45-7.50 [facility] Comment on above: Order Comment: Speci men Type: BLOOD SPECIMENOrdering Facility: [facility] Address: [address] [place] [address] Performed By: #### 5 7021-8 ####[facility] MILLWNCLIA [id number] [place] [address] [place] Neutrophils/100 WBC (Bld) 43.1 % Normal [facility] Comment on above: Order Comment: Speci men Type: BLOOD SPECIMENOrdering Facility: [facility] Address: [address] [place] [address] Performed By: #### 5 7021-8 ####[facility] BIENVENIDOWNCLIA [id number] [place] [address] [place] Nucleated RBC (Bld) [#/Vol] 10*3/uL Normal <0.01 [facility] Comment on above: Order Comment: Speci men Type: BLOOD SPECIMENOrdering Facility: [facility] Address: [address] [place] [address] Performed By: #### 5 7021-8 ####[facility] MILLWNCLIA [id number] [place] [address] [place] Nucleated RBC/100 WBC (Bld) [Ratio] 0.0 /100 WBC Normal [facility] Comment on above: Order Comment: Speci men Type: BLOOD SPECIMENOrdering Facility: [facility] Address: [address] [place] [address] Performed By: #### 5 7021-8 ####[facility] BEACHESANGELICALIA [id number] [place] [address] [place] Platelet mean volume (Bld) [Entitic vol] 8.5 fL Low 9.0-12.7 [facility] Comment on above: Order Comment: Speci men Type: BLOOD SPECIMENOrdering Facility: [facility] Address: [address] [place] [address] Performed By: #### 5 7021-8 ####[facility] BEACHESANGELICALIA [id number] [place] [address] [place] Platelets (Bld) [#/Vol] 200 10*3/uL Normal 150-400 [facility] Comment on above: Order Comment: Speci men Type: BLOOD SPECIMENOrdering Facility: [facility] Address: [address] [place] [address] Performed By: #### 5 7021-8 ####[facility]AVE[facility] [id number] [place] [address] [place] RBC (Bld) [#/Vol] 4.03 10*6/uL Low 4.20-6.00 [facility] Comment on above: Order Comment: Speci men Type: BLOOD SPECIMENOrdering Facility: [facility] Address: [address] [place] [address] Performed By: #### 5 7021-8 ####[facility]PITALKATERINA [id number] [place] [address] [place] WBC (Bld) [#/Vol] 5.79 10*3/uL Normal 3.70-11.00 [facility] Comment on above: Order Comment: Speci men Type: BLOOD SPECIMENOrdering Facility: [facility] Address: [address] [place] [address] Performed By: #### 5 7021-8 ####[facility] BEACHESNCLIA [id number] [place] [address] [place] PSA SerPl-mCncon 03-17-2024 Prostate specific Ag [Mass/Vol] ng/mL Normal <2.60 [facility] Comment on above: Order Comment: Speci men Type: BLOOD SPECIMENOrdering Facility: [facility] Address: [address] [place] [address] Result Comment: Tota l PSA test methodology used is the Electrochemiluminescence Immunoassay by [employer]. Total PSA values by differing methodologies cannot be interchanged. Performed By: #### 2 857-1 ####[facility] LABCLIA [id number] [facility] [address] [facility] CLINICSDESK [id number] [place] CNTHERAPYon 03-16-2024 CNTHERAPY OT/[facility] -- LUTHER CASTILLO ([id number]) 1955 M Date Time Provider Department 03/16/24 2:00 PM JULIANO MAGAÑA [facility] Date Time Provider Department [place] 03/16/2024 2:00 PM [id number] for Visit: [facility] [503] [...] in the MR contrast administration guidelines link. [facility] CNOVon 03-10-2024 [facility] CNTHERAPYon 03-09-2024 CNTHERAPY OT/PT/Speech Visit ([facility]) -- LUTHER CASTILLO ([id number]) 1955 [place] Date Time Provider Department 03/09/24 2:45 PM JOSE DAVID CEDENO [facility] Date Time Provider Department Center 03/09/2024 2:45 PM [id number], SHEILA*[facility] M Reason for Visit: Physical Therapy [503] [...] in the MR contrast administration guidelines link. [facility] CNTHERAPYon 03-02-2024 CNTHERAPY OT/PT/Speech Visit ([facility]) -- LUTHER CASTILLO ([id number]) 1955 M Date Time Provider Department 03/02/24 2:45 PM JILLIAN MAGAÑANDRA [facility] Date Time Provider Department Center 03/02/2024 2:45 PM [id number] MAGAÑ[facility] Reason for Visit: [...] in the MR contrast administration guidelines link. [facility] CNTHERAPYon 02-27-2024 CNTHERAPY OT/PT/Speech Visit ([facility]) -- LUTHER CASTILLO ([id number]) 1955 M Date Time Provider Department 02/27/24 11:45 AM ROSEANNA HUGHES [facility] Date Time Provider Department Center 02/27/2024 11:45 AM [id number], AMBER M [facility] Reason for Visit: Physical Therapy [503] Primary [...] in the MR contrast administration guidelines link. [facility] CNPJerrica 02-25-2024 [facility] CNTHERAPYon 02-25-2024 CNTHERAPY OT/PT/Speech Visit ([facility]) -- LUTHER CASTILLO ([id number]) 1955 [place] Date Time Provider Department 02/25/24 11:00 AM ENDY CURRAN [facility] Date Time Provider Department Center 02/25/2024 11:00 AM [id number], CYNTHIA*[facility] M Reason for Visit: PT Progress Note [4856] Primary Visit Diagnosis:Left hip pain [M25.552] Other [...] once daily. - darbepoetin dagmar in albumn jonh (ARANESP INJECTION) by INJECTION(UNSPECIFIED PARENTERAL ROUTES) route [...] administration guidelines link. Letter Text Letter Text Normal [facility] CNOVon 02-23-2024 CNOV Normal [facility] CNTHERAPYon 02-20-2024 CNTHERAPY OT/PT/Speech Visit ([facility]) -- LUTHER CASTILLO ([id number]) 1955 M Date Time Provider Department 02/20/24 11:45 AM JOSE DAVID CEDENO [facility] Date Time Provider Department Center 02/20/2024 11:45 AM [id number], SHEILA*[facility] M Reason for Visit: [...] the MR contrast administration guidelines link. Normal [facility] Basic metabolic 2000 panelon 02-18-2024 Anion gap [Moles/Vol] 9 mmol/L Normal 8-[address] [facility] Comment on above: Order Comment: Speci men Type: BLOOD SPECIMENOrdering Facility: [facility] Address: [address] [place] [address] Performed By: #### 2 4321-2 ####[facility] [id number] [place] [address] [place] Calcium [Mass/Vol] 9.2 mg/dL Normal 8.5-10.2 [facility] Comment on above: Order Comment: Speci men Type: BLOOD SPECIMENOrdering Facility: [facility] Address: [address] [place] [address] Performed By: #### 2 4321-2 ####[facility] [id number] [place] [address] [place] Chloride [Moles/Vol] 105 mmol/L Normal 98-107 [facility] Comment on above: Order Comment: Speci men Type: BLOOD SPECIMENOrdering Facility: [facility] Address: [address] [place], [place] [address] Performed By: #### 2 4321-2 ####[facility] BIENVENIDOQUIMBYANGELICACACHE VALLEY [facility]OSPITAL [id number] [address] STATES [facility] CO2 [Moles/Vol] 25 mmol/L Normal 22-30 [facility] Comment on above: Order Comment: Speci men Type: BLOOD SPECIMENOrdering Facility: [facility] Address: [address] [place], [place] [address] Performed By: #### 2 4321-2 ####[facility] [id number] [address] Creatinine [Mass/Vol] 0.90 mg/dL Normal 0.73-1.[address] [facility] Comment on above: Order Comment: Speci men Type: BLOOD SPECIMENOrdering Facility: [facility] Address: [address] [place] [address] Performed By: #### 2 4321-2 ####[facility] [id number] [address] Creatinine and Glomerular filtration rate.predicted panel (S/P/Bld) 92 mL/min/1.73m??? Normal >=60 [facility] Comment on above: Order Comment: Speci men Type: BLOOD SPECIMENOrdering Facility: [facility] Address: [address] [place] [address] Result Comment: Beth mated Glomerular Filtration Rate [...] actual GFR. Performed By: #### 2 4321-2 ####[facility] HOSPITALWNCLIA [id number] [place] [address] [place] Glucose [Mass/Vol] 189 mg/dL High 74-99 [facility] Comment on above: Order Comment: Speci men Type: BLOOD SPECIMENOrdering Facility: [facility] Address: [address] [place] [address] Result Comment: The [place] Diabetes Association (ADA) provides guidance for cutoff [...] Standards of Medical Care in Diabetes 2016, [place] [employer] Association. Diabetes Care. 2016.39(Suppl 1). Performed By: #### 2 4321-2 ####[facility] HOSPITALWKYLIA [id number] [place] [address] [place] Potassium [Moles/Vol] 3.7 mmol/L Normal 3.7-5.[address] [facility] Comment on above: Order Comment: Speci men Type: BLOOD SPECIMENOrdering Facility: [facility] Address: [address] [place] [address] Performed By: #### 2 4321-2 ####[facility] HOSPITALLIA [id number] [place] [address] [place] Sodium [Moles/Vol] 139 mmol/L Normal 136-144 [facility] Comment on above: Order Comment: Speci men Type: BLOOD SPECIMENOrdering Facility: [facility] Address: [address] [place] [address] Performed By: #### 2 4321-2 ####[facility]OSPITALL[facility] [id number] [place] [address] [place] Urea nitrogen [Mass/Vol] 25 mg/dL High 9-24 [facility] Comment on above: Order Comment: Speci men Type: BLOOD SPECIMENOrdering Facility: [facility] Address: [address] [place] [address] Performed By: #### 2 4321-2 ####[facility] HOSPITALWKYLIA [id number] [place] [address] [place] CBC W Auto Differential pane l (Bld)on 02-18-2024 Basophils (Bld) [#/Vol] 10*3/uL Normal <0.11 [facility] Comment on above: Order Comment: Speci men Type: BLOOD SPECIMENOrdering Facility: [facility] Address: [address] [place] [address] Performed By: #### 5 7021-8 ####[facility] [id number] [place] [address] [place] Basophils/100 WBC (Bld) 0.2 % Normal [facility] Comment on above: Order Comment: Speci men Type: BLOOD SPECIMENOrdering Facility: [facility] Address: [address] [place] [address] Performed By: #### 5 7021-8 ####[facility] HOSPITALLIA [id number] [place] [address] [place] Differential cell count method Nom (Bld) Auto Normal [facility] Comment on above: Order Comment: Speci men Type: BLOOD SPECIMENOrdering Facility: [facility] Address: [address] [place] [address] Performed By: #### 5 7021-8 ####[facility] [id number] [place] [address] [place] Eosinophils (Bld) [#/Vol] 0.18 10*3/uL Normal <0.46 [facility] Comment on above: Order Comment: Speci men Type: BLOOD SPECIMENOrdering Facility: [facility] Address: [address] [place] [address] Performed By: #### 5 7021-8 ####[facility] BEACHESNCKATERINA [id number] [place] [address] [place] Eosinophils/100 WBC (Bld) 2.9 % Normal [facility] Comment on above: Order Comment: Speci men Type: BLOOD SPECIMENOrdering Facility: [facility] Address: [address] [place] [address] Performed By: #### 5 7021-8 ####[facility]ACHESNCCAC[facility] VAL[facility] [id number] [place] [address] [place] Erythrocyte distribution width (RBC) [Ratio] 20.1 % High 11.5-15.0 [facility] Comment on above: Order Comment: Speci men Type: BLOOD SPECIMENOrdering Facility: [facility] Address: [address] [place] [address] Performed By: #### 5 7021-8 ####[facility] [id number] [place] [address] [place] Hematocrit (Bld) [Volume fraction] 29.1 % Low 39.0-51.0 [facility] Comment on above: Order Comment: Speci men Type: BLOOD SPECIMENOrdering Facility: [facility] Address: [address] [place] [address] Performed By: #### 5 7021-8 ####[facility]PITALLIA [id number] [place] [address] [place] Hemoglobin (Bld) [Mass/Vol] 8.9 g/dL Low 13.0-17.0 [facility] Comment on above: Order Comment: Speci men Type: BLOOD SPECIMENOrdering Facility: [facility] Address: [address] [place] [address] Performed By: #### 5 7021-8 ####[facility]PITALL[facility] [id number] [place] [address] [place] Immature granulocytes (Bld) [#/Vol] 0.03 10*3/uL Normal <0.10 [facility] Comment on above: Order Comment: Speci men Type: BLOOD SPECIMENOrdering Facility: [facility] Address: [address] [place] [address] Performed By: #### 5 7021-8 ####[facility] [id number] [place] [address] [place] Immature granulocytes/100 WBC (Bld) 0.5 % Normal [facility] Comment on above: Order Comment: Speci men Type: BLOOD SPECIMENOrdering Facility: [facility] Address: [address] [place] [address] Performed By: #### 5 7021-8 ####[facility] [id number] [place] [address] [place] Lymphocytes (Bld) [#/Vol] 1.81 10*3/uL Normal 1.00-4.00 [facility] Comment on above: Order Comment: Speci men Type: BLOOD SPECIMENOrdering Facility: [facility] Address: [address] [place] [address] Performed By: #### 5 7021-8 ####[facility] [id number] [place] [address] [place] Lymphocytes/100 WBC (Bld) 29.4 % Normal [facility] Comment on above: Order Comment: Speci men Type: BLOOD SPECIMENOrdering Facility: [facility] Address: [address] [place] [address] Performed By: #### 5 7021-8 ####[facility] [id number] [place] [address] [place] MCH (RBC) [Entitic mass] 24.9 pg Low 26.0-34.0 [facility] Comment on above: Order Comment: Speci men Type: BLOOD SPECIMENOrdering Facility: [facility] Address: [address] [place] [id number] Performed By: #### 5 7021-8 ####[facility] [id number] [place] [address] [place] MCHC (RBC) [Mass/Vol] 30.6 g/dL Normal 30.5-36.[address] [facility] Comment on above: Order Comment: Speci men Type: BLOOD SPECIMENOrdering Facility: [facility] Address: [address] [place], [place] [id number] Performed By: #### 5 7021-8 ####[facility] [id number] [place] [address] [place] MCV (RBC) [Entitic vol] 81.3 fL Normal 80.0-100.0 [facility] Comment on above: Order Comment: Speci men Type: BLOOD SPECIMENOrdering Facility: [facility] Address: [address] [place] [address] Performed By: #### 5 7021-8 ####[facility] [id number] [place] [address] [place] Monocytes (Bld) [#/Vol] 0.33 10*3/uL Normal <0.87 [facility] Comment on above: Order Comment: Speci men Type: BLOOD SPECIMENOrdering Facility: [facility] Address: [address] [place] [address] Performed By: #### 5 7021-8 ####[facility] [id number] [place] [address] [place] Monocytes/100 WBC (Bld) 5.4 % Normal C [facility] Comment on above: Order Comment: Speci men Type: BLOOD SPECIMENOrdering Facility: [facility] Address: [address] [place] [address] Performed By: #### 5 7021-8 ####[facility] MILLTOWNCLIA [id number] [place] [address] [place] Neutrophils (Bld) [#/Vol] 3.79 10*3/uL Normal 1.45-7.50 [facility] Comment on above: Order Comment: Speci men Type: BLOOD SPECIMENOrdering Facility: [facility] Address: [address] [place] [address] Performed By: #### 5 7021-8 ####[facility] MILLWNCLIA [id number] [place] [address] [place] Neutrophils/100 WBC (Bld) 61.6 % Normal [facility] Comment on above: Order Comment: Speci men Type: BLOOD SPECIMENOrdering Facility: [facility] Address: [address] [place] [address] Performed By: #### 5 7021-8 ####[facility] HOSPITALWNCLIA [id number] [place] [address] [place] Nucleated RBC (Bld) [#/Vol] 10*3/uL Normal <0.01 [facility] Comment on above: Order Comment: Speci men Type: BLOOD SPECIMENOrdering Facility: [facility] Address: [address] [place] [address] Performed By: #### 5 7021-8 ####[facility] MILLTOWNCLIA [id number] [place] [address] [place] Nucleated RBC/100 WBC (Bld) [Ratio] 0.0 /100 WBC Normal [facility] Comment on above: Order Comment: Speci men Type: BLOOD SPECIMENOrdering Facility: [facility] Address: [address] [place] [address] Performed By: #### 5 7021-8 ####[facility] [id number] [place] [address] [place] Platelet mean volume (Bld) [Entitic vol] 8.3 fL Low 9.0-12.7 [facility] Comment on above: Order Comment: Speci men Type: BLOOD SPECIMENOrdering Facility: [facility] Address: [address] [place] [address] Performed By: #### 5 7021-8 ####[facility]CIND[facility] [id number] [place] [address] [place] Platelets (Bld) [#/Vol] 191 10*3/uL Normal 150-400 [facility] Comment on above: Order Comment: Speci men Type: BLOOD SPECIMENOrdering Facility: [facility] Address: [address] [place] [address] Performed By: #### 5 7021-8 ####[facility] N[facility]LESShireen [id number] [place] [address] [place] RBC (Bld) [#/Vol] 3.58 10*6/uL Low 4.20-6.00 [facility] Comment on above: Order Comment: Speci men Type: BLOOD SPECIMENOrdering Facility: [facility] Address: [address] [place] [address] Performed By: #### 5 7021-8 ####[facility] H[facility]ITALLIA [id number] [place] [address] [place] WBC (Bld) [#/Vol] 6.15 10*3/uL Normal 3.70-11.00 [facility] Comment on above: Order Comment: Speci men Type: BLOOD SPECIMENOrdering Facility: [facility] Address: [address] [place] [address] Performed By: #### 5 7021-8 ####[facility]ACHESNCLIA [id number] [address] OF [facility] CNTHERAPYon 02-18-2024 CNTHERAPY OT/PT/Speech Visit ([facility]) -- LUTHER CASTILLO ([id number]) 1955 M Date Time Provider Department 02/18/24 1:15 PM ROSEANNA HUGHES [facility] Date Time Provider Department [place] 02/18/2024 1:15 PM [id number], AMBER M [facility] M Reason for Visit: [...] the MR contrast administration guidelines link. Normal [facility] CBC W/Diff, Automatedon 02-05 Anisocytosis Ql (Bld) 1+ Normal [facility] Comment on above: Performed By: #### L 100.0100 ####[facility] [address] [place], [place], [address] Surgery Visit Reporton 02-15 Surgery Visit Report Normal [facility] CNTHERAPYon 02-13-2024 CNTHERAPY OT/PT/Speech Visit ([facility]) -- LUTHER CASTILLO ([id number]) 1955 M Date Time Provider Department 02/13/24 11:45 AM ROSEANNA HUGHES [facility] Date Time Provider Department Center 02/13/2024 11:45 AM [id number], AMBER M [facility] Reason for Visit: Physical Therapy [503] Primary [...] in the MR contrast administration guidelines link. [facility] CNTHERAPYon 02-11-2024 CNTHERAPY OT/PT/Speech Visit ([facility]) -- JONATHANLUTHER Collin ([id number]) 1955 M Date Time Provider Department 02/11/24 11:00 AM ROSEANNA HUGHES [facility] Date Time Provider Department Center 02/11/2024 11:00 AM [id number], AMBER M [facility] Reason for Visit: Physical Therapy [503] Primary [...] in the MR contrast administration guidelines link. Video Systems Engineer: Therapy (PT/OT/Speech/Resp) ID: [id number] 02/11/2024 11:40 AM Author: ROSEANNA HUGHES Signed by ROSEANNA HUGHES LIGHTER on 02/11/2024 at 11:40 AM Document text: Program_ID:[id number] Access Code: [email or web address] URL: [email or web address] Date: 02-11-2024 Prepared By: ENDY CURRAN Program [...] - 3 sets - 10 reps Normal [facility] Culture, Anaerobic Any Sourc binh 02-11-2024 CUAN Normal [facility] Comment on above: Performed By: #### M 100.4001, M100.2000, L350.1000, M100.3000 ####[facility] [address] [place], [address] THERAPY NTon 02-11-2024 THERAPY NT HNO ID: [id number] Author: ROSEANNA HUGHES PTA Service: ? Author Type: Bid Manager Type: Therapy (PT/OT/Speech/Resp) Filed: 02/11/2024 11:40 Note Text: Program_ID:[id number] Access Code: [email or web address] URL: [email or web address] Date: 02-11-2024 Prepared By: ENDY CURRAN Program [...] - 3 sets - 10 reps Normal [facility] CBC W/Diff, Automatedon PATH REV Reviewed Normal [facility] Comment on above: Result Comment: Norm ocytic anemia.MILD Thrombocytopenia.Clinical correlation necessary.Toy Cerrato M.D. 02/09/24 AMENDED REPORT 02/09/24 1420 PATH REV previously reported as: August gallo Performed By: #### L 100.0100 ####[facility] [address] [place], [address] Wound Cultureon 02-08-2024 WC Normal [facility] Comment on above: Performed By: #### M 100.4001, M100.2000, L350.1000, M100.3000 ####[facility] [address] [place], [address] Basic Metabolic Profile (BMP )on 02-06-2024 BUN/CRE 22.5 RATIO High 10-20 [facility] Comment on above: Performed By: #### L 500.2500 ####[facility] [address] [place], [address] CA,Total 7.5 mg/dL Low 8.5-10.1 [facility] Comment on above: Performed By: #### L 500.2500 ####[facility] [address] [place], [address] Chloride [Moles/Vol] 110 mmol/L High 98-107 [facility] Comment on above: Performed By: #### L 500.2500 ####[facility] [address] [place], [address] CO2 [Moles/Vol] 23.0 mmol/L Normal 21.0-32.0 [facility] Comment on above: Performed By: #### L 500.2500 ####[facility] [address] [place], [address] Creatinine [Mass/Vol] 0.93 mg/dL Normal 0.70-1.30 [facility] Comment on above: Result Comment: The validity of the calculated GFR GFRAA in patients over70 years has not been determined. Clinical correlation isessential. Performed By: #### L 500.2500 ####[facility] [address] [place], [address] ECRCL 70.67 ml/min Normal [facility] Comment on above: Performed By: #### L 500.2500 ####[facility] [address] [place], [address] EST GFR - AA 103 mL/min Normal >60 [facility] Comment on above: Result Comment: Afri can Slovenian GFR Calc Performed By: #### L 500.2500 ####[facility] [address] [place], [address] GAP 6 Normal 5-15 [facility] Comment on above: Performed By: #### L 500.2500 ####[facility] [address] [place], [address] GFR/1.73 sq M.predicted among non-blacks MDRD (S/P/Bld) [Vol rate/Area] 85 mL/min/{1.73_m2} Normal >60 [facility] Comment on above: Result Comment: Non- GFR Calc Performed By: #### L 500.2500 ####[facility] [address] [place], [address] Glucose [Mass/Vol] 159 mg/dL High 74-106 [facility] Comment on above: Result Comment: Fast ing Glucose result greater than or equal to 126 mg/dLsuggests DIABETES MELLITUS per A.D.A. criteria. Performed By: #### L 500.2500 ####[facility] [address] [place], [address] Potassium [Moles/Vol] 4.0 mmol/L Normal 3.5-5.1 [facility] Comment on above: Performed By: #### L 500.2500 ####[facility] [address] [place], [address] Sodium [Moles/Vol] 138 mmol/L Normal 136-145 [facility] Comment on above: Performed By: #### L 500.2500 ####[facility] [address] [place], [address] Urea nitrogen [Mass/Vol] 21 mg/dL High 7-18 [facility] Comment on above: Performed By: #### L 500.2500 ####[facility] [address] [place], [address] Discharge Instructionon 11-0 Discharge Instruction Normal [facility] Gram Stainon 02-06-2024 GS Collected in OR - Peritoneal Fluid Gram Stain 3+ White Blood Cells No organisms seen Normal [facility] Comment on above: Performed By: #### M 100.4001, M100.2000, L350.1000, M100.3000 ####[facility] [address] [place], [address] HH, Hemoglobin AND Hematocri ton 02-06-2024 Hematocrit (Bld) [Volume fraction] 27.3 % Low 40-54 [facility] Comment on above: Performed By: #### L 100.0600 ####[facility] [address] [place], [address] Hemoglobin (Bld) [Mass/Vol] 7.9 g/dL Low 13.0-16.5 [facility] Comment on above: Performed By: #### L 100.0600 ####[facility] [address] [place], [address] Special Stain Group IIon Special Stain Group II Normal [facility] Comment on above: Performed By: #### P SSII ####[facility] [address] [place], [address] 12 Lead EKGon 02-05-2024 12 Lead EKG Normal [facility] Abdomen/Pelvis without Conto n 02-05-2024 Abdomen/Pelvis without Cont Normal [facility] Basic Metabolic Profile (BMP )on 02-05-2024 BUN/CRE 23.4 RATIO High 01-24 [facility] Comment on above: Performed By: #### L 500.2500, L100.0100 ####[facility] [address] [place], [address] CA,Total 9.1 mg/dL Normal 8.5-10.1 [facility] Comment on above: Performed By: #### L 500.2500, L100.0100 ####[facility] [address] [place], [address] Chloride [Moles/Vol] 106 mmol/L Normal 98-107 [facility] Comment on above: Performed By: #### L 500.2500, L100.0100 ####[facility] [address] [place], [address] CO2 [Moles/Vol] 24.0 mmol/L Normal 21.0-32.0 [facility] Comment on above: Performed By: #### L 500.2500, L100.0100 ####[facility] [address] [place], [address] Creatinine [Mass/Vol] 0.98 mg/dL Normal 0.70-1.30 [facility] Comment on above: Result Comment: The validity of the calculated GFR GFRAA in patients over70 years has not been determined. Clinical correlation isessential. Performed By: #### L 500.2500, L100.0100 ####[facility] [address] [place], [address] ECRCL 67.06 ml/min Normal [facility] Comment on above: Performed By: #### L 500.2500, L100.0100 ####[facility] [address] [place], [address] EST GFR - AA 97 mL/min Normal >60 [facility] Comment on above: Result Comment: Afri can Slovenian GFR Calc Performed By: #### L 500.2500, L100.0100 ####[facility] [address] [place], [address] GAP 10 Normal 5-15 [facility] Comment on above: Performed By: #### L 500.2500, L100.0100 ####[facility] [address] [place], [address] GFR/1.73 sq M.predicted among non-blacks MDRD (S/P/Bld) [Vol rate/Area] 80 mL/min/{1.73_m2} Normal >60 [facility] Comment on above: Result Comment: Non- GFR Calc Performed By: #### L 500.2500, L100.0100 ####[facility] [address] [place], [address] Glucose [Mass/Vol] 97 mg/dL Normal 74-106 [facility] Comment on above: Performed By: #### L 500.2500, L100.0100 ####[facility] [address] [place], [address] Potassium [Moles/Vol] 3.6 mmol/L Normal 3.5-5.1 [facility] Comment on above: Performed By: #### L 500.2500, L100.0100 ####[facility] [address] [place], [address] Sodium [Moles/Vol] 140 mmol/L Normal 136-145 [facility] Comment on above: Performed By: #### L 500.2500, L100.0100 ####[facility] [address] [place], [address] Urea nitrogen [Mass/Vol] 23 mg/dL High 7-18 [facility] Comment on above: Performed By: #### L 500.2500, L100.0100 ####[facility] [address] [place], [address] CBC W/Diff, Automatedon 10-3 Anisocytosis Ql (Bld) 2+ Normal [facility] Comment on above: Performed By: #### L 500.2500, L100.0100 ####[facility] [address] [place], [address] HYPOCHROMASIA 1+ Normal [facility] Comment on above: Performed By: #### L 500.2500, L100.0100 ####[facility] [address] [place], [address] OVALOCYTE 2+ Normal [facility] Comment on above: Performed By: #### L 500.2500, L100.0100 ####[facility] [address] [place], [address] PLT EST ADEQUATE Normal ADEQ [facility] Comment on above: Performed By: #### L 500.2500, L100.0100 ####[facility] [address] [place], [address] POLYCHROMASIA 1+ Normal [facility] Comment on above: Performed By: #### L 500.2500, L100.0100 ####[facility] [address] [place], [address] SMEAR COMMENT SCANNED Normal [facility] Comment on above: Performed By: #### L 500.2500, L100.0100 ####[facility] [address] [place], [address] TEAR DROP 1+ Normal [facility] Comment on above: Performed By: #### L 500.2500, L100.0100 ####[facility] [address] [place], [address] CNPNon 02-05-2024 CNPN Normal [facility] Chest 1 View (Portable)on Chest 1 View (Portable) Normal [facility] Cytology, Body Fluid / CSFon 02-05-2024 CYTOLOGY,BF/CSF SEE PATHOLOGY REPORT Normal [facility] Comment on above: Order Comment: Comme nts: Collected in OR - Peritoneal fluidHas pt arrived? Y Result Comment: Spec imen submitted to Anatomical Pathology Department fortesting. Performed By: #### M 100.4001, M100.2000, L350.1000, M100.3000 ####[facility] [address] [place], [address] Emergency Department Summary on 02-05-2024 Emergency Department Summary Normal [facility] MR/POSTOP.ANEon 02-05-2024 MR/POSTOP.ANE Normal [facility] MR/XDNUGIZG3bt 02-05-2024 MR/POSTOPAN2 Normal [facility] Operative Reporton Operative Report Normal [facility] Partial Thromboplast Timeon 02-05-2024 aPTT Coag (Bld) [Time] 23.5 s Low 24.1-36.2 [facility] Comment on above: Performed By: #### L 300.4310, L300.3900, BTS ####[facility] [address] [place], [address] Prothrombin Time w/INRon INR Coag (PPP) [Relative time] 1.1 {INR} Normal [facility] Comment on above: Performed By: #### L 300.4310, L300.3900, BTS ####[facility] [address] [place], [address] PT Coag (PPP) [Time] 14.0 s Normal 11.7-14.9 [facility] Comment on above: Performed By: #### L 300.4310, L300.3900, BTS ####[facility] [address] [place], [address] Surgery Specimen Level IIIon 02-05-2024 Surgery Specimen Level III Normal [facility] Comment on above: Performed By: #### P SUIII ####[facility] [address] [place], [address] Type AND Screenon 02-05-2024 Ab SCREEN GEL Negative Normal [facility] Comment on above: Order Comment: S Performed By: #### L 300.4310, L300.3900, BTS ####[facility] [address] [place], [address] Urinalysis, Completeon 02-04 AMORPHOUS 1+ Normal [facility] Comment on above: Order Comment: CLEAN CATCH Performed By: #### L 400.0001 ####[facility] [address] [place], [address] BACTERIA RARE Normal None Seen [facility] Comment on above: Order Comment: CLEAN CATCH Performed By: #### L 400.0001 ####[facility] [address] [place], [address] EPI,SQUAMOUS 0 SEEN Normal 0-5 [facility] Comment on above: Order Comment: CLEAN CATCH Performed By: #### L 400.0001 ####[facility] [address] [place], [address] Mucus Ql (Urine sed) 0 SEEN Normal [facility] Comment on above: Order Comment: CLEAN CATCH Performed By: #### L 400.0001 ####[facility] [address] [place], [address] RBC 0 SEEN Normal 0-5 [facility] Comment on above: Order Comment: CLEAN CATCH Performed By: #### L 400.0001 ####[facility] [address] [place], [address] WBC 0 SEEN Normal 0-5 [facility] Comment on above: Order Comment: CLEAN CATCH Performed By: #### L 400.0001 ####[facility] [address] [place], [address] CNOVon 02-03-2024 CNOV Normal [facility] CNPNon 02-03-2024 CNPN Normal [facility] No Panel Informationon 02-02 IMPRESSION: 1 mm posterior RIGHT testicular calcification. Sonographic appearance of the scrotal contents is otherwise unremarkable. Normal arterial and venous flow within both testes. No abnormality is demonstrated in the LEFT inguinal canal. Stock Crane Operator: PSCB Transcribe Date/Time: Feb 03 2024 2:57P Dictated by : CONSTANTIN LEON MD This examination was interpreted and the report reviewed and electronically signed by: CONSTANTIN LEON MD on Feb 03 2024 3:03PM [facility] DIVISION OF RADIOLOGY Radiology Study observation (narrative) [facility] No Panel InformationOrdered By: Ccf Provider on 02-03-2024 [facility] US DOPPLER COMPLETEon 2023 US DOPPLER COMPLETE Normal [facility] US SCROTUM AND CONTENTSon US SCROTUM AND CONTENTS Normal [facility] US.doppler Scrotum and testi hali 02-03-2024 * * *Final Report* * * DATE OF EXAM: Feb 03 2024 2:56PM U 1063 - US SCROTUM AND CONTENTS / [...] canal are unremarkable. DIVISION OF RADIOLOGY Provider, [facility] - 02/03/2024 * * *Final Report* * * DATE OF EXAM: Feb 03 2024 2:56PM [facility] 1063 - US SCROTUM AND CONTENTS [...] is demonstrated in the LEFT inguinal canal. Stock Crane Operator: APRIL Transcribe Date/Time: Feb 03 2024 2:57P Dictated by : CONSTANTIN LEON MD This examination was interpreted and the report reviewed and electronically signed by: CONSTANTIN LEON MD on Feb 03 2024 3:03PM [facility] US.doppler Unspecified body regionon 02-03-2024 * * *Final Report* * * DATE OF EXAM: Feb 03 2024 2:56PM U 1033 - US DOPPLER COMPLETE / PROCEDURE [...] canal are unremarkable. DIVISION OF RADIOLOGY Provider, [facility] - 02/03/2024 * * *Final Report* * * DATE OF EXAM: Feb 03 2024 2:56PM [facility] 1033 - US DOPPLER COMPLETE / PROCEDURE [...] is demonstrated in the LEFT inguinal canal. Stock Crane Operator: [facility] Transcribe Date/Time: Feb 03 2024 2:57P Dictated by : CONSTANTIN LEON MD This examination was interpreted and the report reviewed and electronically signed by: CONSTANTIN LEON MD on Feb 03 2024 3:03PM [facility] [id number] 01-29-2024 [id number] HNO ID: [id number] Author: ENDY CURRAN PT Service: ? Author Type: Physical Therapist Type: [id number] Filed: 01/29/2024 14:32 Note Text: [facility] Physical Therapy Plan of Care Certification Patient Name: Luther Castillo : 1955 [facility] #: [id number] Date: 01/29/2024 To: Catherine Peraza APRN, JOI From Therapist: Endy Curran PT, DERRICK RE: [...] Planned: 12 Planned Treatment Interventions: Therapeutic exercise (53423), Manual therapy (50857), Therapeutic activities (73215), [place] [facility] [place] management (55512), Patient/Family/Caregiver Education, Body Mechanics Training PLAN FOR [...] reviewed the treatment plan for Luther Castillo, [facility]# [id number] for the period of 01/29/24 -- 03/19/24, established on 01/29/2024. Signature certifies the need for therapy services. [facility] CNTHERAPYon 01-29-2024 CNTHERAPY OT[facility]ech [facility] -- LUTHER CASTILLO ([id number]) 1955 M Date Time Provider Department 01/29/24 9:30 AM ENDY CURRAN [facility] Date Time Provider Department Center 01/29/2024 9:30 AM [id number], CYNTHIA*[facility] M Reason for Visit: [...] in the MR contrast administration guidelines link. Video Systems Engineer: Addendum Therapy (PT/OT/Speech/Resp) ID: [id number] 01/29/2024 10:39 AM Author: ENDY CURRAN Signed by ENDY CURRAN PT on 01/29/2024 at 10:39 AM * * * This document replaces document [id number] * * * Document text: Program_ID:[id number] Access Code: [email or web address] URL: [email or web address]/ Date: 01-29-2024 Prepared By: ENDY CURRAN Program [...] weekly - 1 sets - 5 reps [facility] THERAPY NTon 01-29-2024 THERAPY NT HNO ID: [id number] Author: ENDY CURRAN, PT Service: ? Author Type: Physical Therapist Type: Therapy (PT/OT/Speech/Resp) Filed: 01/29/2024 10:39 Note Text: Program_ID:[id number] Access Code: [email or web address] URL: [email or web address]/ Date: 01-29-2024 Prepared By: EDNY CURRAN Program Notes Exercises - Supine Posterior [...] weekly - 1 sets - [address] [facility] [address] Abdomen and Pelvis WO con traston 12-10-2023 * * *Final Report* * * DATE OF EXAM: Dec 10 2023 3:53PM [facility] 0531 - CT ABD/PEL WO IVCON / [...] (DLP) for this visit = 489 (accession [id number]), 1008 (accession [id number]) mGy*cm. CT Dose Reduction Employed: Automated exposure control(AEC) and iterative recon COMPARISON: Whole-body nuclear medicine bone scan 08/24/2021, chest radiograph 06/11/2023 RESULT: Ingot Buggy Operator/topogram: Frontal and lateral images. Bowel gas pattern [...] encroachment lumbar spine DIVISION OF RADIOLOGY Provider, [facility] - 12/10/2023 * * *Final Report* * * DATE OF EXAM: Dec 10 2023 3:53PM [facility] 0531 - CT ABD/PEL WO IVCON / [...] (DLP) for this visit = 489 (accession [id number]), 1008 (accession [id number]) mGy*cm. CT Dose Reduction Employed: Automated exposure control(AEC) and iterative recon COMPARISON: Whole-body nuclear medicine bone scan 08/24/2021, chest radiograph 06/11/2023 RESULT: Ingot Buggy Operator/topogram: Frontal and lateral images. Bowel gas pattern [...] having multilevel central and foraminal degenerative encroachment Stock Crane Operator: APRIL Transcribe Date/Time: Dec 10 2023 4:00P Dictated by : MELONIE TEMPLETON MD This examination was interpreted and the report reviewed and electronically signed by: MELONIE TEMPLETON MD on Dec 10 2023 4:46PM [facility] Radiology Study observation (narrative) [facility] CT Lumbar spine W contrast I Saulo 12-10-2023 * * *Final Report* * * DATE OF EXAM: Dec 10 2023 3:55PM [facility] 0012 - CT LUMBAR SPINE W IVCON [...] (DLP) for this visit = 489 (accession [id number]), 1008 (accession [id number]) mGy*cm. CT Dose Reduction Employed: Automated exposure control(AEC) and iterative recon COMPARISON: Whole-body nuclear medicine bone scan 08/24/2021, chest radiograph 06/11/2023 RESULT: Ingot Buggy Operator/topogram: Frontal and lateral images. Bowel gas pattern [...] encroachment lumbar spine DIVISION OF RADIOLOGY Provider, [facility] - 12/10/2023 * * *Final Report* * * DATE OF EXAM: Dec 10 2023 3:55PM [facility] 0012 - CT LUMBAR SPINE W IVCON [...] (DLP) for this visit = 489 (accession [id number]), 1008 (accession [id number]) mGy*cm. CT Dose Reduction Employed: Automated exposure control(AEC) and iterative recon COMPARISON: Whole-body nuclear medicine bone scan 08/24/2021, chest radiograph 06/11/2023 RESULT: Ingot Buggy Operator/topogram: Frontal and lateral images. Bowel gas pattern [...] having multilevel central and foraminal degenerative encroachment Stock Crane Operator: APRIL Transcribe Date/Time: Dec 10 2023 4:00P Dictated by : MELONIE TEMPLETON MD This examination was interpreted and the report reviewed and electronically signed by: MELONIE TEMPLETON MD on Dec 10 2023 4:46PM EST [facility]ative[facility] No Panel Informationon 12-09 IMPRESSION: [...] having multilevel central and foraminal degenerative encroachment Stock Crane Operator: APRIL Transcribe Date/Time: Dec 10 2023 4:00P Dictated by : MELONIE TEMPLETON MD This examination was interpreted and the report reviewed and electronically signed by: MELONIE TEMPLETON MD on Dec 10 2023 4:46PM [facility] DIVISION OF RADIOLOGY No Panel InformationOrdered By: Ccf Provider on 12-10-2023 [facility] NM CARDIAC PERF STRESS/EXERC ISEon 11-12-2023 NM CARDIAC PERF STRESS/EXERCISE * * *Final Report* * * DATE OF EXAM: Nov 12 2023 10:39AM DOMEN[facility] 0004 - NM CARDIAC PERF STRESS/EXERCISE / PROCEDURE REASON: multiple diagnoses * * * * Physician Interpretation * * * * Stress Nutrition Club Ambassador Report: [facility] Date of service: 11/12/2023 9:07:22 AM [...] later. See administered radiotracer and doses below. [facility] Date of service: 11/12/2023 9:07:22 AM Ordering Physician: DORCAS ROMERO. Requesting Physician: Indication: Abnormal Baseline ECG Interpreting physician: Amee Charles MD Height: 170.18 cm BSA: 1.81 m? [...] Final * * * Stress ECG Report: [facility] Date of service: 11/12/2023 9:07:22 AM Ordering physician: DORCAS ROMERO soil specialist: Marily Peoples Atmospheric Physicist: Sahara Oswald Interpreting physician: Fannie Madrid MD [...] 160/82 mmHg. The double product achieved was 90051. Medications: Last Used LIPITOR PREDNISONE FLOMAX CALCIUM [...] +---+---+---+ --- (more content not included)... Normal [facility] NM Heart Perfusion W multipl e states of exerciseon 11-12-2023 * * *Final Report* * * DATE OF EXAM: Nov 12 2023 10:39AM DOMEN[facility] 0004 - NM CARDIAC PERF STRESS/EXERCISE / PROCEDURE REASON: multiple diagnoses * * * * Physician Interpretation * * * * Stress Nutrition Club Ambassador Report: [facility] Date of service: 11/12/2023 9:07:22 AM [...] later. See administered radiotracer and doses below. [facility] Date of service: 11/12/2023 9:07:22 AM Ordering Physician: DORCAS ROMERO. Requesting Physician: Indication: Abnormal Baseline ECG Interpreting physician: Amee Charles MD Height: 170.18 cm BSA: 1.81 m [...] Final * * * Stress ECG Report: [facility] Date of service: 11/12/2023 9:07:22 AM Ordering physician: DORCAS ROMERO soil specialist: Marily Peoples Atmospheric Physicist: Sahara Oswald Interpreting physician: Fannie Madrid MD [...] 160/82 mmHg. The double product achieved was 68695. Medications: Last Used LIPITOR PREDNISONE FLOMAX CALCIUM [...] 148 72 13.0 (more content not included)... [facility] Provider, [facility] Mercedez Osborne - 11/12/2023 * * *Final Report* * * DATE OF EXAM: Nov 12 2023 10:39AM DOMENIC 0004 - NM CARDIAC PERF STRESS/EXERCISE / PROCEDURE REASON: multiple diagnoses * * * * Physician Interpretation * * * * Stress Nutrition Club Ambassador Report: [facility] Date of service: 11/12/2023 9:07:22 AM [...] later. See administered radiotracer and doses below. [facility] Date of service: 11/12/2023 9:07:22 AM Ordering Physician: DORCAS ROMERO. Requesting Physician: Indication: Abnormal Baseline ECG Interpreting physician: Amee Charles MD Height: 170.18 cm BSA: 1.81 m [...] Final * * * Stress ECG Report: [facility] Date of service: 11/12/2023 9:07:22 AM Ordering physician: DORCAS ROMERO soil specialist: Marily Peoples Atmospheric Physicist: Sahara Oswald Interpreting physician: Fannie Madrid MD [...] 160/82 mmHg. The double product achieved was 99096. Medications: Last Used LIPITOR PREDNISONE FLOMAX CALCIUM [...] RPE METS +-----+-- (more content not included)... [facility] Radiology Study observation (narrative) Nora daigle [facility] NM Heart Perfusion W multipl e states of exerciseOrdered By: Ccf Provider on 11-12-2023 [facility] CNPNon 11-11-2023 CNPN Telephone ([facility]) -- LUTHER CASTILLO ([id number]) 1955 M Date Time Provider Department 11/11/23 [facility] During your visit today, we recorded the [...] Fully Assessed Reason for Visit: Reminder Call [[id number]] Prescriptions as of 11/11/2023 - predniSONE (DELTASONE) [...] Encounter Status:Closed by SAHARA OSWALD on 11/11/23 [facility] CNOVon 10-16-2023 CNOV Office Visit (CARMED ) -- LUTHER CASTILLO ([id number]) 1955 M Date Time Provider Department 10/16/23 2:20 PM DORCAS ROMERO During your visit today, we recorded the following information about you: Pulse Blood pressure Weight Height 98/minute 118/64 70 kg 1.702 m Dorcas Romero DO 10/16/2023 5:25 PM Signed [facility] SECTION OF REGIONAL CARDIOLOGY [facility] OUTPATIENT VISIT DATE October 16, 2023 PRIMARY CARE PHYSICIAN: Arsalan Lilly [address] [place] [address] HISTORY OF PRESENT ILLNESS: Mr. Castillo is [...] and light-heade (more content not included)... Normal [facility] 10-16-2023 [facility] Telephone (CARMED) -- LUTHER CASTILLO ([id number]) 1955 M Date Time Provider Department 10/16/23 DORCAS ROMERO During your visit today, we recorded the following information about you: Gabi Douglas MA 10/16/2023 3:45 PM Signed Please call pt to schedule Stress echo ordered today by Dr Romero. Follow up appointment already scheduled. Rafaela Harman [...] Status:Closed by GABI DOUGLAS on 10/16/23 Normal [facility] EXERCISE STRESS ECG (WITHOUT IMAGING)on 06-17-2023 EXERCISE STRESS ECG (WITHOUT IMAGING) Stress Nutrition Club Ambassador Report: Exercise Stress ECG (without Imaging) [facility] Date of service: 06/17/2023 10:22:25 AM Supervising physician: Lucian Alvarez MD PATIENT: Name: MR. LUTHER CASTILLO Age: 68 years Gender: M The supervising physician was in the department and immediately available. Final Stress ECG Report: Exercise Stress ECG (without Imaging) [facility] Date of service: 06/17/2023 10:22:25 AM Ordering physician: CATHERINE PERAZA soil specialist: Julieta Zhang Atmospheric Physicist: Toma Lyles Interpreting physician: Lucian Alvarez MD [...] 140/60 mmHg. The double product achieved was 11984. Medications: Last Used PREDNISONE LIPITOR FLOMAX TAGAMET [...] (HRR): 11 bpm Rate Pressure Product (RPP): 17032 Vega Treadmill Score: 8.0 Stress Exercise Observations: [...] equation for determining estimated MET values for [facility] stress tests changed. Comparison of test results before and after that date may show a change in estimated MET values for peak/max exercise despite a test duration that is similar in length. The validity of the new FRIEND equation for exercise METS is endorsed by the [place] [employer]. Miky P, Jose LA, Ivania R, Reagan J, Chepe J. New Generalized Equation for Predicting Maximal Oxygen Uptake (from the Fitness Registry and the Importance of Exercise National Database). The [place] Journal of Cardiology. 2017;120(4):688-692). Final CC [employer] Image : [id number] See Link below for Image Normal [facility] CNPNon 06-16-2023 CNPN Telephone ([facility]) -- LUTHER CASTILLO ([id number]) 1955 M Date Time Provider Department 06/16/23 SAHARA OSWALD CD[facility]ME During your visit today, we recorded the following information about you: Sahara Oswald, RN 06/16/2023 2:19 PM Signed Spoke with patient regarding reminder for stress test tomorrow and given instructions. Allergies As of Date: 06/16/2023 Noted Allergy Reaction RAGWEED POLLEN 06/11/2023 14 - Other: See Comments Comments: Watering/itchy eyes Date Reviewed: 06/11/2023 Reviewed by: Jessy Flores LPN - Fully Assessed Reason for Visit: Reminder Call [[id number]] Prescriptions as of 06/16/2023 - predniSONE (DELTASONE) [...] Encounter Status:Closed by SAHARA OSWALD on 06/16/23 [facility] XR Chest PA and Lateralon IMPRESSION: Bibasilar atelectasis. Stock Crane Operator: APRIL Transcribe Date/Time: Jun 11 2023 4:47P Dictated by : NIKKI EVANGELISTA MD This examination was interpreted and the report reviewed and electronically signed by: NIKKI EVANGELISTA MD on Jun 11 2023 4:47PM [facility] DIVISION OF RADIOLOGY * * *Final Report* [...] in the spine. DIVISION OF RADIOLOGY Provider, [facility] - 06/11/2023 * * *Final Report* [...] in the spine. IMPRESSION IMPRESSION: Bibasilar atelectasis. Stock Crane Operator: PSCB Transcribe Date/Time: Jun 11 2023 4:47P Dictated by : NIKKI EVANGELISTA MD This examination was interpreted and the report reviewed and electronically signed by: NIKKI EVANGELISTA MD on Jun 11 2023 4:47PM [facility] Radiology Study observation (narrative) Nora daigle [facility] XR Chest PA and LateralOrder ed By: Ccf Provider on 06-11-2023 [facility] Basic metabolic 2000 panelon 06-05-2023 Anion gap [Moles/Vol] 7 mmol/L Low 9 - 18 mmol/L [facility] Calcium [Mass/Vol] 8.7 mg/dL 8.5 - 10. 2 mg/dL [facility] Chloride [Moles/Vol] 102 mmol/L 97 - 10 5 mmol/L [facility] CO2 [Moles/Vol] 28 mmol/L 22 - 30 mmol/L [facility] Creatinine [Mass/Vol] 1.05 mg/dL 0.73 - 1.22 mg/dL [facility] Estimated Glomerular Filtration Rate 76 mL/min/1.73m >=60 mL/min/1.7 3m [facility] Glucose [Mass/Vol] 93 mg/dL 74 - 99 mg/dL [facility] Potassium [Moles/Vol] 3.7 mmol/L 3.7 - 5.1 mmol/L [facility] Sodium [Moles/Vol] 137 mmol/L 136 - 144 mmol/L [facility] Urea nitrogen [Mass/Vol] 20 mg/dL 9 - 24 mg/dL [facility] XR FINGER 3RD DIGIT 3 VIEWS [...] 3:18:15 PM Ordering Provider: ALEXIS Bhatt [facility] ([place] STACEYOVgretel 04-26-2022 CNOV Office Visit ([facility] ) -- LUTHER CASTILLO ([id number]) 1955 M Date Time Provider Department 04/26/22 10:45 AM SP MCKEON During your visit today, we recorded the following information about you: Respiration Weight Height 18/minute 69.4 kg 1.702 m Sp Mckeon DO 05/07/2022 2:46 PM Signed [facility] UROLOGY LOCATION: [address] [place] [address] ESTABLISHED PATIENT PATIENT INFO: Luther Castillo 67 [...] confirmed metastatic disease. Biopsy of prostate confirmed Nowata 7, prostate cancer. He started androgen deprivation [...] A. PROSTATE, BIOPSY, RIGHT BASE: Prostatic adenocarcinoma, Nowata score 3+4=7 (Grade group 2), involving 60% of one core (8 mm tumor length). - Percentage of Nowata pattern 4 = 20%. - Expansile cribriform morphology is present. B. PROSTATE, BIOPSY, RIGHT MID: Prostatic adenocarcinoma, Nowata score 4+3=7 (Grade group 3), involving 90% [...] PROSTATE, BIOPSY, RIGHT LATERAL APEX: Prostatic adenocarcinoma, Nowata score 3+4=7 (Grade group 2), involving 50% of one core (6.5 mm tumor length). - Percentage of Nowata pattern 4 = 5%. - Cribriform morphology is absent. G. PROSTATE, BIOPSY, LEFT BASE: Prostatic adenocarcinoma, Nowata score 3+3=6 (Grade group 1), involving 4% [...] 50.5 Lymph% (%) Date Value 02/12/2022 38.7 Fillmore% (%) Date Value 02/12/2022 8.2 Eosin% (%) Date Value 05/28/2021 1.5 Baso% (%) Date Value 02/12/2022 0.5 Abs Neut (k/uL) Date Value 02/12/2022 2.89 Abs Fillmore (k/uL) Date Value 02/12/2022 (more content not included)... Normal [facility] SURGICAL PATHOLOGYon 022 Addendum This addendum is iss ued to report the results of immunohistochemical stains. The original diagnoses remain unchanged. Immunohistochemical stain for Helicobacter pylori performed on the gastric biopsy is negative (Block A1). Laboratory Developed Test (LDT) Disclaimer: Performance characteristics of immunohistochemical, immunofluorescent and chromogenic in-situ hybridization tests have been determined by the performing laboratory within [facility] s [facility] ([facility], [facility] or [facility]) in a manner consistent with CLIA requirements. One or more of these tests have not been cleared or approved by the FDA. [facility] is regulated under CLIA as qualified to perform high-complexity testing. These tests are used for clinical purposes. They should not be regarded as investigational or for research. Positive and negative controls stain appropriately. [facility] Case Report Surgical Pathology R eport Case: [id number] Authorizing Provider: Lyn Mcgowan MD Collected: 02/27/2022 09:19 AM Ordering Location: Ambulatory Surgery Received: 02/27/2022 04:29 PM Pathologist: Tate Kirk MD Specimens: A) - ANTRUM (STOMACH) BIOPSY, Antral bx for H/H B) - ESOPHAGOGASTRIC JUNCTION BIOPSY [facility] FINAL DIAGNOSIS A. Stomach, antrum, biopsy: - Chronic inactive antral gastritis. - Immunohistochemistry for Helicobacter pylori will be reported in an addendum. B. Esophagogastric junction, biopsy: - Squamous epithelium with features of reflux. - Inflamed gastric cardia-type mucosa. - No evidence of intestinal metaplasia or dysplasia. [facility] Gross Description A. ANTRUM (STOMACH) BIOPSY Received in formalin is one piece of boyer, soft tissue measuring 0.6 x 0.3 x 0.1 cm. Totally submitted in one cassette. B. ESOPHAGOGASTRIC JUNCTION BIOPSY Received in formalin are two pieces of boyer, soft tissue aggregating to 0.7 x 0.2 x 0.1 cm. Totally submitted in one cassette. Gross examination performed at [facility], [address] [facility] [place] [address] FFS 02/28/2022 12:17 AM [facility] Performing Lab Diagnostic interpret ation performed at [facility], [address] [address] CLIA# [id number] Fabrication And Layout Craftsman: Misha Prater M.D. [facility] COLONOSCOPY DIAGNOSTICon [facility] EGD DIAGNOSTICon 02-27-2022 [facility] CNOVon 09-05-2021 CNOV Office Visit (AKURFL ) -- LUTHER CASTILLO ([id number]) 1955 M Date Time Provider Department 09/05/21 10:15 AM SP MCKEON During your visit today, we recorded the following information about you: Blood pressure Weight Height 113/60 69.4 kg 1.727 m Sp Mckeon DO 09/05/2021 10:48 AM Signed ?? [facility] LOCATION: [address] [place] [address] ESTABLISHED PATIENT PATIENT INFO: Luther Castillo 66 [...] scan subsequently confirmed?metastatic disease.???Biopsy of prostate confirmed Nowata 7,?prostate cancer. ? He started androgen deprivation [...] A. PROSTATE, BIOPSY, RIGHT BASE: Prostatic adenocarcinoma, Nowata score 3+4=7 (Grade group 2), involving 60% of one core (8 mm tumor length). - Percentage of Rasheed pattern 4 = 20%. - Expansile cribriform morphology is present. ? B. PROSTATE, BIOPSY, RIGHT MID: Prostatic adenocarcinoma, Nowata score 4+3=7 (Grade group 3), involving 90% of one core (10 mm tumor length). - Percentage of Rasheed pattern 4 = 90%. - Expansile cribriform morphology is present. ? C. PROSTATE, BIOPSY, RIGHT APEX: Prostatic adenocarcinoma, Nowata score 3+4=7 (Grade group 2), involving 35% of one core (3 mm tumor length). - Percentage of Rasheed pattern 4 = 5%. - Cribriform morphology is absent. ? D. PROSTATE, BIOPSY, RIGHT LATERAL BASE: High-grade prostatic intraepithelial neoplasia. ? E. PROSTATE, BIOPSY, RIGHT LATERAL MID: Prostatic adenocarcinoma, Nowata score 3+4=7 (Grade group 2), involving 85% of one core (10 mm tumor length). - Percentage of Nowata pattern 4 = 10%. - Definitive cribriform morphology is absent. ? F. PROSTATE, BIOPSY, RIGHT LATERAL APEX: Prostatic adenocarcinoma, Nowata score 3+4=7 (Grade group 2), involving 50% of one core (6.5 mm tumor length). - Percentage of Rasheed pattern 4 = 5%. - Cribriform morphology is absent. ? G. PROSTATE, BIOPSY, LEFT BASE: Prostatic adenocarcinoma, Nowata score 3+3=6 (Grade group 1), involving 4% [...] 77.7 Lymph% (%) Date Value 08/24/2021 14.8 Fillmore% (%) Date Value 08/24/2021 6.1 Eosin% (%) Date Value 05/28/2021 1.5 Baso% (%) Date Value 08/24/2021 0.1 Abs Neut (k/uL) Date Value 08/06 (more content not included)... Normal [facility] NM BONE WHOLE BODYon 022 [facility] CNOVon 01-03-2017 CNOV Office Visit (PETRA) LUTHER CASTILLO ([id number]) 1955 MDate Time Provider Department01/03/17 9:00 AM DORCAS WHEELER During your visit today, we recorded the following information about you: Blood pressure Weight Height 114/54 70.3 kg 1.727 Ghassan Wheeler MD 01/03/2017 9:31 AM SignedNEW PATIENT HISTORY AND PHYSICAL EXAMPRIMARY CARE PHYSICIAN: AMY Raya FOR CONSULT: Elevated PSA and poor urinary streamREFERRING PHYSICIAN: Carl Vicente, [facility] COMPLAINT: New Patient and PSA (Elevated )HISTORY [...] (no units) Date Value 01/03/2017 neg Specific Spencer, Ur (no units) Date Value 01/03/2017 1.010 [...] Calcium (mg/dL) Date Value 12/16/2016 9.3 Specific Spencer, Ur (no units) Date Value 01/03/2017 1.010 Leukocytes (no units) Date Value 01/03/2017 neg No results found for: URCULMEDICATIONS:FLUARIX QUAD [id number], PF, 60 mcg (15 mcg x 4)/0.5 [...] debridement, biceps tenotomy- COLONOSCOP W/ OR W/O [facility] SPEC 10/2006 Colonoscopy- COLONOSCOP W/ OR W/O [facility] SPEC 03/06/2012 Colonoscopy- EGD W/O OR [...] Number of children: 3Occupational HistoryOccupation Employer Comment 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 No specific exercise regimenPHYSICAL EXAMINATIONBP 114/54 Ht 172.7 cm (5' 8ANDquot;) Wt 70.3 kg (155 lb) BMI 23.57 kg/r3Wlxnslac ExamConstitutional: He is oriented to person, place, [...] 4-6 weeks5. Progress note to primary careGmaye Wheeler MD01/03/2017Dorcas Wheeler MD 01/03/2017 9:26 AM Signed1) try tamsulosin 1 every evening2) follow-up in 4-6 weeksReferring Provider: CARL VICENTE [[id number]]Allergies As of Date: 01/03/2017 Noted Allergy Reactionenvirornmental [Other] 11/29/2005 5 - IntoleranceDate Reviewed: 01/03/2017Reviewed by: Carley Rome MA - Fully AssessedReason for Visit: New Patient [172] PSA [337] Cmt: ElevatedPrimary Visit Diagnosis:Elevated prostate specific antigen (PSA) [R97.20] Other Visit Diagnoses:Hypertrophy of prostate with urinary obstruction [N40.1, N13.8] Poor urinary stream [R39.12] Hesitancy of micturition [R39.11] Family history of malignant neoplasm of prostate [Z80.42]Order(s):UA DIP B/O [[id number]] Order #: [id number] tamsulosin ER (FLOMAX) 0.4 mg [id number] 1 capsule by mouth once daily.Disp: 30 capsuleRfl: 2Prescriptions as of 01/03/2017 Sig: FLUARIX QUAD [id number] (PF) 6* GAVILYTE-C 240 GRAM-22.72 GRA* OMEPRAZOLE 40 MG CAPSULE,MARJORIE* Take 1 capsule by mouth once * FERROUS SULFATE 325 MG (65 MG* Take 325 mg by mouth daily wi* HYDROCODONE 5 MG-ACETAMINOPHE* TAMSULOSIN 0.4 MG CAPSULE Take 1 capsule by mouth once *Medication notes this encounter HYDROCODONE 5 MG-ACETAMINOPHEN 325 MG TABLET >> Carley Rome MA 01/03/2017 9:13 AM >> CARLEY ROME MA FriJan 03, 2017 9:13 AM Not takingProblem List [...] 01/31/2017).Follow-up and Disposition History RecordedLetter TextEncounter Number: [id number] Status:Closed by DORCAS WHEELER MD on 01/03/17 [facility] PROGRESSon 01-03-2017 PROGRESS HNO ID: [id number] thor: Dorcas WheelerService: (none)Author Type: PhysicianType: Progress NotesFiled: 01/03/2017 9:31 AMNote Text:NEW PATIENT HISTORY AND PHYSICAL EXAMPRIMARY CARE PHYSICIAN: AMY Raya FOR CONSULT: Elevated PSA and poor urinary streamREFERRING PHYSICIAN: Carl Vicente, [facility] COMPLAINT: New Patient and PSA (Elevated )HISTORY [...] (no units) Date Value 01/03/2017 neg Specific Spencer, Ur (no units) Date Value 01/03/2017 1.010 [...] Calcium (mg/dL) Date Value 12/16/2016 9.3 Specific Spencer, Ur (no units) Date Value 01/03/2017 1.010 Leukocytes (no units) Date Value 01/03/2017 neg No results found for: URCULMEDICATIONS:FLUARIX QUAD [id number], PF, 60 mcg (15 mcg x 4)/0.5 [...] debridement, biceps tenotomy- COLONOSCOP W/ OR W/O [facility] SPEC 10/2006 Colonoscopy- COLONOSCOP W/ OR [...] Number of children: 3Occupational HistoryOccupation Employer Comment 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 No specific exerciseregimenPHYSICAL EXAMINATIONBP 114/54 Ht 172.7 cm (5' 8) Wt 70.3 kg (155 lb) BMI 23.57 kg/y3Rxyvkdwg ExamConstitutional: He is oriented to person, place, and time. He appearswell-developed and well-nourished.Pulmonary/C hest: No respiratory distress.Abdominal: Soft. Normal appearance and bowel sounds are normal. Heexhibits no distension. There is no tenderness.Genitourinary: Testes normal and penis normal. Circumcised.Genitourinary Comments: Linda 30-40 g enlarged benign feeling.Symmetric without nodules [...] weeks5. Progress note to primary careGregory Enma Wheeler MD01/03/2017 Normal [facility] Vital Signs Date Time Vital Sign Value Performing Clinician Facility 12-02-2024 13:02040 Body height 172.7 cm [facility] Comment on above: Pt reported 12-02-2024 13:02-0400 Body mass index (BMI) [Ratio] 21.59 kg/m2 [facility] 12-02-2024 13:02040 Body weight 64.41 kg [facility] Comment on above: Pt reported 12-02-2024 13:02-0400 Heart rate 102 /min [facility] Comment on above: Pt reported 12-01-2024 10:23-0400 Body mass index (BMI) [Ratio] 22.24 kg/m2 Injection Wstr Work Phone: [facility] 12-01-2024 10:23-0400 Body temperature 97.7 [degF] Injection Wstr Work Phone: [facility] 12-01-2024 10:23-0400 Body weight 64.41 kg Injection Wstr Work Phone: [facility] 12-01-2024 10:23-0400 Diastolic blood pressure 80 mm[Hg] Injection Wstr Work Phone: [facility] 12-01-2024 10:23-0400 Heart rate 85 /min Injection Wstr Work Phone: [facility] 12-01-2024 10:23-0400 Respiratory rate 12 /min Injection Wstr Work Phone: [facility] 12-01-2024 10:23-0400 SaO2% (BldA) [Mass fraction] 98 % Injection Wstr Work Phone: [facility] 12-01-2024 10:23-0400 Systolic blood pressure 124 mm[Hg] Injection Wstr Work Phone: [facility] 11-26-2024 09:16-0400 Body mass index (BMI) [Ratio] 32.66 kg/m2 Nilay Ramirez MD Work Phone: [facility] 11-26-2024 09:16-0400 Body temperature 96.4 [degF] Nilay Ramirez MD Work Phone: [facility] 11-26-2024 09:16-0400 Body weight 94.6 kg Nilay Ramirez MD Work Phone: [facility] 11-26-2024 09:16-0400 Diastolic blood pressure 79 mm[Hg] Nilay Ramirez MD Work Phone: [facility] 11-26-2024 09:16-0400 Heart rate 81 /min Nilay Ramirez MD Work Phone: [facility] 11-26-2024 09:16-0400 Respiratory rate 16 /min Nilay Ramirez MD Work Phone: [facility] 11-26-2024 09:16-0400 SaO2% (BldA) [Mass fraction] 100 % Nilay Ramirez MD Work Phone: [facility] 11-26-2024 09:16-0400 Systolic blood pressure 133 mm[Hg] Nilay Ramirez MD Work Phone: [facility] 11-03-2024 11:00-0400 Body temperature 97.2 [degF] Linden Mcguire MD Work Phone: [facility] 11-03-2024 11:00-0400 Diastolic blood pressure 54 mm[Hg] Linden Mcguire MD Work Phone: [facility] 11-03-2024 11:00-0400 Heart rate 78 /min Linden Mcguire MD Work Phone: [facility] 11-03-2024 11:00-0400 Respiratory rate 18 /min Linden Mcguire MD Work Phone: [facility] 11-03-2024 11:00-0400 SaO2% (BldA) [Mass fraction] 96 % Linden Mcguire MD Work Phone: [facility] 11-03-2024 11:00-0400 Systolic blood pressure 97 mm[Hg] Linden Mcguire MD Work Phone: [facility] 11-02-2024 09:53-0400 Body height 170.2 cm Tee Ellis Work Phone: [facility] 11-02-2024 09:53-0400 Body mass index (BMI) [Ratio] 21.93 kg/m2 Tee Ellis Work Phone: [facility] 11-02-2024 09:53-0400 Body temperature 96.6 [degF] Tee Ellis Work Phone: [facility] 11-02-2024 09:53-0400 Body weight 63.5 kg Tee Ellis Work Phone: [facility] 11-02-2024 09:53-0400 Diastolic blood pressure 60 mm[Hg] Tee Ellis Work Phone: [facility] 11-02-2024 09:53-0400 Heart rate 99 /min Tee Ellis Work Phone: [facility] 11-02-2024 09:53-0400 SaO2% (BldA) [Mass fraction] 95 % Tee Ellis Work Phone: [facility] 11-02-2024 09:53-0400 Systolic blood pressure 98 mm[Hg] Tee Ellis Work Phone: [facility] 10-28-2024 09:01-0400 Body height 170.[address] 10-28-2024 09:01-0400 Body mass index (BMI) [Ratio] 21.99 kg/m2 [address] 10-28-2024 09:01-0400 Body temperature 97.81 [degF] [address] 10-28-2024 09:01-0400 Body weight 63.[address] 10-28-2024 09:01-0400 Diastolic blood pressure 67 mm[Hg] [address] 10-28-2024 09:01-0400 Heart rate 90 /min [address] 10-28-2024 09:01-0400 Respiratory rate 20 /min [address] 10-28-2024 09:01-0400 SaO2% (BldA) [Mass fraction] 99 % [address] 10-28-2024 09:01-0400 Systolic blood pressure 102 mm[Hg] [address] 10-27-2024 10:16-0400 Body temperature 97.3 [degF] Davida Al MD Work Phone: [facility] 10-27-2024 10:16-0400 Diastolic blood pressure 60 mm[Hg] Davida Al MD Work Phone: [facility] 10-27-2024 10:16-0400 Heart rate 81 /min Davida Al MD Work Phone: [facility] 10-27-2024 10:16-0400 SaO2% (BldA) [Mass fraction] 99 % Davida Al MD Work Phone: [facility] 10-27-2024 10:16-0400 Systolic blood pressure 115 mm[Hg] Davida Al MD Work Phone: [facility] 10-22-2024 12:28-0400 Body mass index (BMI) [Ratio] 23.49 kg/m2 Arsalan Lilly MD Work Phone: [facility] 10-22-2024 12:28-0400 Body temperature 97.39 [degF] Arsalan Lilly MD Work Phone: [facility] 10-22-2024 12:28-0400 Body weight 68.04 kg Arsalan Lilly MD Work Phone: [facility] 10-22-2024 12:28-0400 Diastolic blood pressure 70 mm[Hg] Arsalan Lilly MD Work Phone: [facility] 10-22-2024 12:28-0400 Heart rate 84 /min Arsalan Lilly MD Work Phone: [facility] 10-22-2024 12:28-0400 Respiratory rate 16 /min Arsalan Lilly MD Work Phone: [facility] 10-22-2024 12:28-0400 Systolic blood pressure 120 mm[Hg] Arsalan Lilly MD Work Phone: [facility] 10-19-2024 14:49-0400 Body temperature 97.3 [degF] Dr. López Lilly MD Work Phone: [facility] 10-19-2024 14:49-0400 Diastolic blood pressure 90 mm[Hg] Dr. López Lilly MD Work Phone: [facility] 10-19-2024 14:49-0400 Heart rate 79 /min Dr. López Lilly MD Work Phone: 7(910)423-978261 [place] [address] 10-19-2024 14:49-0400 Respiratory rate 18 /min Dr. López Lilly MD Work Phone: 8(901)063-032300 [place] [address] 10-19-2024 14:49-0400 SaO2% (BldA) [Mass fraction] 100 % Dr. López Lilly MD Work Phone: 7(145)632-954400 [place] [address] 10-19-2024 14:49-0400 Systolic blood pressure 136 mm[Hg] Dr. López Lilly MD Work Phone: 3(644)869-516600 [place] [address] 10-19-2024 04:48-0400 Body mass index (BMI) [Ratio] 27.4 kg/m2 Dr. López Lilly MD Work Phone: 7(236)382-277600 [place] [address] 10-19-2024 04:48-0400 Body weight 77.[address] López Lilly MD Work Phone: 6(122)160-403600 [place] [address] 10-18-2024 12:22-0400 Body height 167.[address] López Lilly MD Work Phone: 8(698)588-340100 [place] [address] 10-16-2024 12:00-0400 Inhaled oxygen flow rate 2 L/min Dr. López Lilly MD Work Phone: 5(737)443-881400 [place] [address] 10-15-2024 10:42-0400 Body temperature 98.6 [degF] Dr. López Lilly MD Work Phone: 4(587)130-066700 [place] [address] 10-15-2024 10:42-0400 Diastolic blood pressure 50 mm[Hg] Dr. López Lilly MD Work Phone: 8(136)913-322300 [place] [address] 10-15-2024 10:42-0400 Heart rate 82 /min Dr. López Lilly MD Work Phone: 2(967)820-318100 [place] [address] 10-15-2024 10:42-0400 Respiratory rate 21 /min Dr. López Lilly MD Work Phone: 8(828)967-008600 [place] [address] 10-15-2024 10:42-0400 SaO2% (BldA) [Mass fraction] 96 % Dr. López Lilly MD Work Phone: 1(858)915-022300 [place] [address] 10-15-2024 10:42-0400 Systolic blood pressure 105 mm[Hg] Dr. López Lilly MD Work Phone: 8(727)646-222700 [place] [address] 10-15-2024 10:23-0400 Body height 167.[address] López Lilly MD Work Phone: 2(053)469-642200 [place] [address] 10-15-2024 10:23-0400 Body mass index (BMI) [Ratio] 24.1 kg/m2 Dr. López Lilly MD Work Phone: 3(405)783-113800 [place] [address] 10-15-2024 10:23-0400 Body weight 67.[address] López Lilly MD Work Phone: 5(164)788-261500 [place] [address] 10-14-2024 09:37-0400 Body height 167.[address] López Lilly MD Work Phone: 4(127)115-032000 [place] [address] 10-14-2024 09:37-0400 Body mass index (BMI) [Ratio] 22.6 kg/m2 Dr. López Lilly MD Work Phone: 6(658)572-133500 [place] [address] 10-14-2024 09:37-0400 Body temperature 96.4 [degF] Dr. López Lilly MD Work Phone: 5(310)364-196700 [place] [address] 10-14-2024 09:37-0400 Body weight 63.[address] López Lilly MD Work Phone: 6(947)520-520400 [place] [address] 10-14-2024 09:37-0400 Diastolic blood pressure 74 mm[Hg] Dr. López Lilly MD Work Phone: 3(891)367-473700 [place] [address] 10-14-2024 09:37-0400 Heart rate 92 /min Dr. López Lilly MD Work Phone: 5(657)581-527300 [place] [address] 10-14-2024 09:37-0400 Respiratory rate 16 /min Dr. López Lilly MD Work Phone: 8(033)180-730000 [place] [address] 10-14-2024 09:37-0400 Systolic blood pressure 121 mm[Hg] Dr. López Lilly MD Work Phone: [facility] 10-13-2024 09:32-0400 Body height 170.2 cm Davida Al MD Work Phone: [facility] 10-13-2024 09:32-0400 Body mass index (BMI) [Ratio] 21.99 kg/m2 Davida Al MD Work Phone: [facility] 10-13-2024 09:32-0400 Body temperature 97.81 [degF] Davida Al MD Work Phone: [facility] 10-13-2024 09:32-0400 Body weight 63.69 kg Davida Al MD Work Phone: [facility] 10-13-2024 09:32-0400 Diastolic blood pressure 64 mm[Hg] Davida Al MD Work Phone: [facility] 10-13-2024 09:32-0400 Heart rate 122 /min Davida Al MD Work Phone: [facility] 10-13-2024 09:32-0400 SaO2% (BldA) [Mass fraction] 99 % Davida Al MD Work Phone: [facility] 10-13-2024 09:32-0400 Systolic blood pressure 110 mm[Hg] Davida Al MD Work Phone: [facility] 09-30-2024 15:27-0400 Body mass index (BMI) [Ratio] 23.47 kg/m2 Dereje Villarreal MD Work Phone: [facility] 09-30-2024 15:27-0400 Body temperature 98.2 [degF] Dereje Villarreal MD Work Phone: [facility] 09-30-2024 15:27-0400 Body weight 66.22 kg Dereje Villarreal MD Work Phone: [facility] 09-30-2024 15:27-0400 Diastolic blood pressure 69 mm[Hg] Dereje Villarreal MD Work Phone: [facility] 09-30-2024 15:27-0400 Heart rate 96 /min Dereje Villarreal MD Work Phone: [facility] 09-30-2024 15:27-0400 SaO2% (BldA) [Mass fraction] 99 % Dereje Villarreal MD Work Phone: [facility] 09-30-2024 15:27-0400 Systolic blood pressure 113 mm[Hg] Dereje Villarreal MD Work Phone: [facility] 09-22-2024 14:32-0400 Body temperature 97.9 [degF] Dr. López Lilly MD Work Phone: [facility] 09-22-2024 14:32-0400 Diastolic blood pressure 71 mm[Hg] Dr. López Lilly MD Work Phone: [facility] 09-22-2024 14:32-0400 Heart rate 83 /min Dr. López Lilly MD Work Phone: [facility] 09-22-2024 14:32-0400 Respiratory rate 18 /min Dr. López Lilly MD Work Phone: [facility] 09-22-2024 14:32-0400 SaO2% (BldA) [Mass fraction] 99 % Dr. López Lilly MD Work Phone: [facility] 09-22-2024 14:32-0400 Systolic blood pressure 123 mm[Hg] Dr. López Lilly MD Work Phone: [facility] 09-22-2024 03:30-0400 Body mass index (BMI) [Ratio] 26 kg/m2 Dr. López Lilly MD Work Phone: [facility] 09-22-2024 03:30-0400 Body weight 73.[address] López Lilly MD Work Phone: [facility] 09-19-2024 10:17-0400 Body height 167.[address] López Lilly MD Work Phone: 5(643)402-705900 [place] [address] 09-19-2024 09:00-0400 Inhaled oxygen concentration 2 % Dr. López Lilly MD Work Phone: 2(114)377-114900 [place] [address] 09-19-2024 07:56-0400 Inhaled oxygen flow rate 2 L/min Dr. López Lilly MD Work Phone: 5(186)440-847800 [place] [address] 09-18-2024 16:37-0400 Diastolic blood pressure 53 mm[Hg] Dr. López Lilly MD Work Phone: 7(302)461-301900 [place] [address] 09-18-2024 16:37-0400 Systolic blood pressure 91 mm[Hg] Dr. López Lilly MD Work Phone: 3(209)660-019[address] [place] [address] 09-18-2024 14:30-0400 Body temperature 98.4 [degF] Dr. López Lilly MD Work Phone: 4(350)644-315100 [place] [address] 09-18-2024 14:30-0400 Heart rate 85 /min Dr. López Lilly MD Work Phone: 4(648)267-396600 [place] [address] 09-18-2024 14:30-0400 Respiratory rate 20 /min Dr. López Lilly MD Work Phone: 7(426)274-954600 [place] [address] 09-18-2024 14:30-0400 SaO2% (BldA) [Mass fraction] 93 % Dr. López Lilly MD Work Phone: 5(380)202-051600 [place] [address] 09-18-2024 12:57-0400 Body mass index (BMI) [Ratio] 22.6 kg/m2 Dr. López Lilly MD Work Phone: 4(282)747-589200 [place] [address] 09-18-2024 12:57-0400 Body weight 67.[address] López Lilly MD Work Phone: 9(621)507-764500 [place] [address] 09-18-2024 12:26-0400 Body height 172.[address] López Lilly MD Work Phone: 3(788)162-982300 [place] [address] 09-10-2024 13:26-0400 Diastolic blood pressure 59 mm[Hg] Injection Wstr Work Phone: [facility] 09-10-2024 13:26-0400 Heart rate 91 /min Injection Wstr Work Phone: [facility] 09-10-2024 13:26-0400 Respiratory rate 12 /min Injection Wstr Work Phone: [facility] 09-10-2024 13:26-0400 SaO2% (BldA) [Mass fraction] 99 % Injection Wstr Work Phone: [facility] 09-10-2024 13:26-0400 Systolic blood pressure 96 mm[Hg] Injection Wstr Work Phone: [facility] 09-08-2024 09:54-0400 Body mass index (BMI) [Ratio] 24.11 kg/m2 Dereje Villarreal MD Work Phone: [facility] 09-08-2024 09:54-0400 Body temperature 97 [degF] Dereje Villarreal MD Work Phone: [facility] 09-08-2024 09:54-0400 Body weight 68.04 kg Dereje Villarreal MD Work Phone: [facility] 09-08-2024 09:54-0400 Diastolic blood pressure 74 mm[Hg] Dereje Villarreal MD Work Phone: [facility] 09-08-2024 09:54-0400 Heart rate 86 /min Dereje Villarreal MD Work Phone: [facility] 09-08-2024 09:54-0400 SaO2% (BldA) [Mass fraction] 97 % Dereje Villarreal MD Work Phone: [facility] 09-08-2024 09:54-0400 Systolic blood pressure 127 mm[Hg] Dereje Villarreal MD Work Phone: [facility] 08-11-2024 09:12-0400 Body mass index (BMI) [Ratio] 23.87 kg/m2 Dereje Villarreal MD Work Phone: [facility] 08-11-2024 09:12-0400 Body temperature 97.3 [degF] Dereje Villarreal MD Work Phone: [facility] 08-11-2024 09:12-0400 Body weight 67.36 kg Dereje Villarreal MD Work Phone: [facility] 08-11-2024 09:12-0400 Diastolic blood pressure 59 mm[Hg] Dereje Villarreal MD Work Phone: [facility] 08-11-2024 09:12-0400 Heart rate 94 /min Dereje Villarreal MD Work Phone: [facility] 08-11-2024 09:12-0400 SaO2% (BldA) [Mass fraction] 98 % Dereje Villarreal MD Work Phone: [facility] 08-11-2024 09:12-0400 Systolic blood pressure 101 mm[Hg] Dereje Villarreal MD Work Phone: [facility] 08-09-2024 15:20-0400 Body height 168 cm Candace Guerra APRN.[employer]PRINT SORTER Work Phone: [facility] 08-09-2024 15:20-0400 Body mass index (BMI) [Ratio] 24.38 kg/m2 Candace Guerra APRN.[employer]TER Work Phone: [facility] 08-09-2024 15:20-0400 Body weight 68.8 kg Candace Guerra APRN.[employer]TER Work Phone: [facility] 08-09-2024 15:20-0400 Diastolic blood pressure 64 mm[Hg] Candace Guerra APRN.[employer]TER Work Phone: [facility] 08-09-2024 15:20-0400 Heart rate 95 /min Candace Guerra APRN.[employer]TER Work Phone: [facility] 08-09-2024 15:20-0400 SaO2% (BldA) [Mass fraction] 97 % Candace Guerra APRN.[employer]TER Work Phone: [facility] 08-09-2024 15:20-0400 Systolic blood pressure 110 mm[Hg] Candace Guerra APRN.[employer]TER Work Phone: [facility] 07-14-2024 10:33-0400 Body mass index (BMI) [Ratio] 24.27 kg/m2 Injection Wstr Work Phone: [facility] 07-14-2024 10:33-0400 Body temperature 97.59 [degF] Injection Wstr Work Phone: [facility] 07-14-2024 10:33-0400 Body weight 68.49 kg Injection Wstr Work Phone: [facility] 07-14-2024 10:33-0400 Diastolic blood pressure 67 mm[Hg] Injection Wstr Work Phone: [facility] 07-14-2024 10:33-0400 Heart rate 74 /min Injection Wstr Work Phone: [facility] 07-14-2024 10:33-0400 Respiratory rate 12 /min Injection Wstr Work Phone: [facility] 07-14-2024 10:33-0400 SaO2% (BldA) [Mass fraction] 100 % Injection Wstr Work Phone: [facility] 07-14-2024 10:33-0400 Systolic blood pressure 113 mm[Hg] Injection Wstr Work Phone: [facility] 06-24-2024 09:11-0400 Body mass index (BMI) [Ratio] 24.35 kg/m2 Suresh Hodges MD Work Phone: [facility] 06-24-2024 09:11-0400 Body temperature 97.2 [degF] Suresh Hodges MD Work Phone: [facility] 06-24-2024 09:11-0400 Body weight 68.72 kg Suresh Hodges MD Work Phone: [facility] 06-24-2024 09:11-0400 Diastolic blood pressure 74 mm[Hg] Suresh Hodges MD Work Phone: [facility] 06-24-2024 09:11-0400 Heart rate 97 /min Suresh Hodges MD Work Phone: [facility] 06-24-2024 09:11-0400 Respiratory rate 14 /min Suresh Hodges MD Work Phone: [facility] 06-24-2024 09:11-0400 SaO2% (BldA) [Mass fraction] 98 % Suresh Hodges MD Work Phone: [facility] 06-24-2024 09:11-0400 Systolic blood pressure 114 mm[Hg] Suresh Hodges MD Work Phone: [facility] 06-16-2024 10:35-0400 Body mass index (BMI) [Ratio] 24.27 kg/m2 Injection Wstr Work Phone: [facility] 06-16-2024 10:35-0400 Body temperature 98.2 [degF] Injection Wstr Work Phone: [facility] 06-16-2024 10:35-0400 Body weight 68.49 kg Injection Wstr Work Phone: [facility] 06-16-2024 10:35-0400 Diastolic blood pressure 66 mm[Hg] Injection Wstr Work Phone: [facility] 06-16-2024 10:35-0400 Heart rate 96 /min Injection Wstr Work Phone: [facility] 06-16-2024 10:35-0400 Respiratory rate 12 /min Injection Wstr Work Phone: [facility] 06-16-2024 10:35-0400 SaO2% (BldA) [Mass fraction] 97 % Injection Wstr Work Phone: [facility] 06-16-2024 10:35-0400 Systolic blood pressure 105 mm[Hg] Injection Wstr Work Phone: [facility] 05-12-2024 10:10-0500 Body mass index (BMI) [Ratio] 24.59 kg/m2 Injection Wstr Work Phone: [facility] 05-12-2024 10:10-0500 Body weight 69.4 kg Injection Wstr Work Phone: [facility] 05-12-2024 10:10-0500 Diastolic blood pressure 74 mm[Hg] Injection Wstr Work Phone: [facility] 05-12-2024 10:10-0500 Heart rate 79 /min Injection Wstr Work Phone: [facility] 05-12-2024 10:10-0500 Respiratory rate 12 /min Injection Wstr Work Phone: [facility] 05-12-2024 10:10-0500 SaO2% (BldA) [Mass fraction] 97 % Injection Wstr Work Phone: [facility] 05-12-2024 10:10-0500 Systolic blood pressure 119 mm[Hg] Injection Wstr Work Phone: [facility] 04-14-2024 10:15-0500 Body mass index (BMI) [Ratio] 24.43 kg/m2 Injection Wstr Work Phone: [facility] 04-14-2024 10:15-0500 Body temperature 97.9 [degF] Injection Wstr Work Phone: [facility] 04-14-2024 10:15-0500 Body weight 68.95 kg Injection Wstr Work Phone: [facility] 04-14-2024 10:15-0500 Diastolic blood pressure 68 mm[Hg] Injection Wstr Work Phone: [facility] 04-14-2024 10:15-0500 Heart rate 91 /min Injection Wstr Work Phone: [facility] 04-14-2024 10:15-0500 SaO2% (BldA) [Mass fraction] 98 % Injection Wstr Work Phone: [facility] 04-14-2024 10:15-0500 Systolic blood pressure 133 mm[Hg] Injection Wstr Work Phone: [facility] 03-17-2024 09:46-0500 Body mass index (BMI) [Ratio] 23.62 kg/m2 Injection Wstr Work Phone: [facility] 03-17-2024 09:46-0500 Body temperature 97.7 [degF] Injection Wstr Work Phone: [facility] 03-17-2024 09:46-0500 Body weight 66.68 kg Injection Wstr Work Phone: [facility] 03-17-2024 09:46-0500 Diastolic blood pressure 65 mm[Hg] Injection Wstr Work Phone: [facility] 03-17-2024 09:46-0500 Heart rate 82 /min Injection Wstr Work Phone: [facility] 03-17-2024 09:46-0500 Respiratory rate 12 /min Injection Wstr Work Phone: [facility] 03-17-2024 09:46-0500 SaO2% (BldA) [Mass fraction] 94 % Injection Wstr Work Phone: [facility] 03-17-2024 09:46-0500 Systolic blood pressure 122 mm[Hg] Injection Wstr Work Phone: [facility] 03-10-2024 09:00-0500 Body height 168 cm Catherine Zieglerlogluba UI ARCHITECT.[employer]PRINT SORTER Work Phone: [facility] 03-10-2024 09:00-0500 Body mass index (BMI) [Ratio] 22.6 kg/m2 Catherine Podlogar UI ARCHITECT.[employer]PRINT SORTER Work Phone: [facility] 03-10-2024 09:00-0500 Body weight 63.8 kg Catherine Zieglerlogar UI ARCHITECT.[employer]PRINT SORTER Work Phone: [facility] 03-10-2024 09:00-0500 Diastolic blood pressure 76 mm[Hg] Catherine Podlogar UI ARCHITECT.[employer]PRINT SORTER Work Phone: [facility] 03-10-2024 09:00-0500 Heart rate 84 /min Catherine Podlogar UI ARCHITECT.[employer]PRINT SORTER Work Phone: [facility] 03-10-2024 09:00-0500 Respiratory rate 18 /min Catherine Podlogluba UI ARCHITECT.[employer]PRINT SORTER Work Phone: [facility] 03-10-2024 09:00-0500 Systolic blood pressure 124 mm[Hg] Catherine Zieglerlogluba UI ARCHITECT.REPRINT SORTER Work Phone: [facility] 02-18-2024 09:39-0500 Body mass index (BMI) [Ratio] 22.87 kg/m2 Injection Wstr Work Phone: [facility] 02-18-2024 09:39-0500 Body temperature 97 [degF] Injection Wstr Work Phone: [facility] 02-18-2024 09:39-0500 Body weight 66.22 kg Injection Wstr Work Phone: [facility] 02-18-2024 09:39-0500 Diastolic blood pressure 61 mm[Hg] Injection Wstr Work Phone: [facility] 02-18-2024 09:39-0500 Heart rate 90 /min Injection Wstr Work Phone: [facility] 02-18-2024 09:39-0500 Respiratory rate 12 /min Injection Wstr Work Phone: [facility] 02-18-2024 09:39-0500 SaO2% (BldA) [Mass fraction] 97 % Injection Wstr Work Phone: [facility] 02-18-2024 09:39-0500 Systolic blood pressure 98 mm[Hg] Injection Wstr Work Phone: [facility] 02-03-2024 10:14-0400 Body mass index (BMI) [Ratio] 23.49 kg/m2 Arsalan Lilly MD Work Phone: [facility] 02-03-2024 10:14-0400 Body weight 68.04 kg Arsalan Lilly MD Work Phone: [facility] 02-03-2024 10:14-0400 Diastolic blood pressure 58 mm[Hg] Arsalan Lilly MD Work Phone: [facility] 02-03-2024 10:14-0400 Heart rate 93 /min Arsalan Lilly MD Work Phone: [facility] 02-03-2024 10:14-0400 Respiratory rate 16 /min Arsalan Lilly MD Work Phone: [facility] 02-03-2024 10:14-0400 SaO2% (BldA) [Mass fraction] 99 % Arsalan Lilly MD Work Phone: [facility] 02-03-2024 10:14-0400 Systolic blood pressure 118 mm[Hg] Arsalan Lilly MD Work Phone: [facility] 01-21-2024 09:25-0400 Body mass index (BMI) [Ratio] 23.57 kg/m2 Dereje Villarreal MD Work Phone: [facility] 01-21-2024 09:25-0400 Body temperature 96.49 [degF] Dereje Villarreal MD Work Phone: [facility] 01-21-2024 09:25-0400 Body weight 68.27 kg Dereje Villarreal MD Work Phone: [facility] 01-21-2024 09:25-0400 Diastolic blood pressure 72 mm[Hg] Dereje Villarreal MD Work Phone: [facility] 01-21-2024 09:25-0400 Heart rate 94 /min Dereje Villarreal MD Work Phone: [facility] 01-21-2024 09:25-0400 SaO2% (BldA) [Mass fraction] 98 % Dereje Villarreal MD Work Phone: [facility] 01-21-2024 09:25-0400 Systolic blood pressure 118 mm[Hg] Dereje Villarreal MD Work Phone: [facility] 12-24-2023 11:37-0400 Body mass index (BMI) [Ratio] 23.79 kg/m2 Catherine Podlogar UI ARCHITECT.[employer] Work Phone: [facility] 12-24-2023 11:37-0400 Body weight 68.9 kg Catherine Podlogar UI ARCHITECT.[employer] Work Phone: [facility] 12-24-2023 11:37-0400 Diastolic blood pressure 62 mm[Hg] Catherine Podlogar UI ARCHITECT.[employer] Work Phone: [facility] 12-24-2023 11:37-0400 Heart rate 102 /min Catherine Podlogar UI ARCHITECT.[employer] Work Phone: [facility] 12-24-2023 11:37-0400 Respiratory rate 18 /min Catherine Podlogar UI ARCHITECT.[employer] Work Phone: [facility] 12-24-2023 11:37-0400 SaO2% (BldA) [Mass fraction] 98 % Catherine Podlogar UI ARCHITECT[employer] Work Phone: [facility] 12-24-2023 11:37-0400 Systolic blood pressure 112 mm[Hg] Catherine Podlogar UI ARCHITECT[employer] Work Phone: [facility] 12-17-2023 09:14-0400 Body mass index (BMI) [Ratio] 24.28 kg/m2 Injection Wstr Work Phone: [facility] 12-17-2023 09:14-0400 Body weight 70.31 kg Injection Wstr Work Phone: [facility] 12-17-2023 09:14-0400 Diastolic blood pressure 66 mm[Hg] Injection Wstr Work Phone: [facility] 12-17-2023 09:14-0400 Heart rate 91 /min Injection Wstr Work Phone: [facility] 12-17-2023 09:14-0400 Respiratory rate 12 /min Injection Wstr Work Phone: [facility] 12-17-2023 09:14-0400 SaO2% (BldA) [Mass fraction] 99 % Injection Wstr Work Phone: [facility] 12-17-2023 09:14-0400 Systolic blood pressure 119 mm[Hg] Injection Wstr Work Phone: [facility] 11-19-2023 10:52-0400 Body mass index (BMI) [Ratio] 23.65 kg/m2 Injection Wstr Work Phone: [facility] 11-19-2023 10:52-0400 Body temperature 97 [degF] Injection Wstr Work Phone: [facility] 11-19-2023 10:52-0400 Body weight 68.49 kg Injection Wstr Work Phone: [facility] 11-19-2023 10:52-0400 Diastolic blood pressure 65 mm[Hg] Injection Wstr Work Phone: [facility] 11-19-2023 10:52-0400 Heart rate 79 /min Injection Wstr Work Phone: [facility] 11-19-2023 10:52-0400 Respiratory rate 12 /min Injection Wstr Work Phone: [facility] 11-19-2023 10:52-0400 SaO2% (BldA) [Mass fraction] 95 % Injection Wstr Work Phone: [facility] 11-19-2023 10:52-0400 Systolic blood pressure 109 mm[Hg] Injection Wstr Work Phone: [facility] 10-22-2023 08:18-0400 Body mass index (BMI) [Ratio] 23.88 kg/m2 Dereje Villarreal MD Work Phone: [facility] 10-22-2023 08:18-0400 Body temperature 97 [degF] Dereje Villarreal MD Work Phone: [facility] 10-22-2023 08:18-0400 Body weight 69.17 kg Dereje Villarreal MD Work Phone: [facility] 10-22-2023 08:18-0400 Diastolic blood pressure 72 mm[Hg] Dereje Villarreal MD Work Phone: [facility] 10-22-2023 08:18-0400 Heart rate 80 /min Dereje Villarreal MD Work Phone: [facility] 10-22-2023 08:18-0400 SaO2% (BldA) [Mass fraction] 97 % Dereje Villarreal MD Work Phone: [facility] 10-22-2023 08:18-0400 Systolic blood pressure 119 mm[Hg] Dereje Villarreal MD Work Phone: [facility] 10-16-2023 15:02-0400 Body height 170.2 cm Dorcas Romero DO Work Phone: [facility] 10-16-2023 15:02-0400 Body mass index (BMI) [Ratio] 24.17 kg/m2 Dorcas Romero DO Work Phone: [facility] 10-16-2023 15:02-0400 Body weight 70 kg Dorcas Romero DO Work Phone: [facility] 10-16-2023 15:02-0400 Diastolic blood pressure 64 mm[Hg] Dorcas Romero DO Work Phone: [facility] 10-16-2023 15:02-0400 Heart rate 98 /min Dorcas Romero DO Work Phone: [facility] 10-16-2023 15:02-0400 SaO2% (BldA) [Mass fraction] 97 % Dorcas Romero DO Work Phone: [facility] 10-16-2023 15:02-0400 Systolic blood pressure 118 mm[Hg] Dorcas Romero DO Work Phone: [facility] 10-02-2023 08:57-0400 Body height 171 cm Injection Wstr Work Phone: [facility] 10-02-2023 08:57-0400 Body mass index (BMI) [Ratio] 23.89 kg/m2 Injection Wstr Work Phone: [facility] 10-02-2023 08:57-0400 Body temperature 97.7 [degF] Injection Wstr Work Phone: [facility] 10-02-2023 08:57-0400 Body weight 69.85 kg Injection Wstr Work Phone: [facility] 10-02-2023 08:57-0400 Diastolic blood pressure 66 mm[Hg] Injection Wstr Work Phone: [facility] 10-02-2023 08:57-0400 Heart rate 74 /min Injection Wstr Work Phone: [facility] 10-02-2023 08:57-0400 SaO2% (BldA) [Mass fraction] 98 % Injection Wstr Work Phone: [facility] 10-02-2023 08:57-0400 Systolic blood pressure 131 mm[Hg] Injection Wstr Work Phone: [facility] 09-24-2023 09:12-0400 Body mass index (BMI) [Ratio] 24.12 kg/m2 Injection Wstr Work Phone: [facility] 09-24-2023 09:12-0400 Body temperature 97.3 [degF] Injection Wstr Work Phone: [facility] 09-24-2023 09:12-0400 Body weight 69.85 kg Injection Wstr Work Phone: [facility] 09-24-2023 09:12-0400 Diastolic blood pressure 65 mm[Hg] Injection Wstr Work Phone: [facility] 09-24-2023 09:12-0400 Heart rate 65 /min Injection Wstr Work Phone: [facility] 09-24-2023 09:12-0400 Respiratory rate 12 /min Injection Wstr Work Phone: [facility] 09-24-2023 09:12-0400 SaO2% (BldA) [Mass fraction] 97 % Injection Wstr Work Phone: [facility] 09-24-2023 09:12-0400 Systolic blood pressure 115 mm[Hg] Injection Wstr Work Phone: [facility] 08-27-2023 09:10-0400 Body mass index (BMI) [Ratio] 24.12 kg/m2 Injection Wstr Work Phone: [facility] 08-27-2023 09:10-0400 Body temperature 97.11 [degF] Injection Wstr Work Phone: [facility] 08-27-2023 09:10-0400 Body weight 69.85 kg Injection Wstr Work Phone: [facility] 08-27-2023 09:10-0400 Diastolic blood pressure 68 mm[Hg] Injection Wstr Work Phone: [facility] 08-27-2023 09:10-0400 Heart rate 82 /min Injection Wstr Work Phone: [facility] 08-27-2023 09:10-0400 Respiratory rate 12 /min Injection Wstr Work Phone: [facility] 08-27-2023 09:10-0400 SaO2% (BldA) [Mass fraction] 97 % Injection Wstr Work Phone: [facility] 08-27-2023 09:10-0400 Systolic blood pressure 106 mm[Hg] Injection Wstr Work Phone: [facility] 07-31-2023 09:07-0400 Body mass index (BMI) [Ratio] 24.28 kg/m2 Injection Wstr Work Phone: [facility] 07-31-2023 09:07-0400 Body temperature 98.01 [degF] Injection Wstr Work Phone: [facility] 07-31-2023 09:07-0400 Body weight 70.31 kg Injection Wstr Work Phone: [facility] 07-31-2023 09:07-0400 Diastolic blood pressure 69 mm[Hg] Injection Wstr Work Phone: [facility] 07-31-2023 09:07-0400 Heart rate 84 /min Injection Wstr Work Phone: [facility] 07-31-2023 09:07-0400 Respiratory rate 12 /min Injection Wstr Work Phone: [facility] 07-31-2023 09:07-0400 SaO2% (BldA) [Mass fraction] 98 % Injection Wstr Work Phone: [facility] 07-31-2023 09:07-0400 Systolic blood pressure 119 mm[Hg] Injection Wstr Work Phone: [facility] 06-11-2023 10:05-0500 Body weight 71.94 kg Catherine Podlogar UI ARCH[employer] Work Phone: [facility] 06-11-2023 10:05-0500 Diastolic blood pressure 62 mm[Hg] Catherine Podlogar UI ARCHITECT[employer] Work Phone: [facility] 06-11-2023 10:05-0500 Heart rate 106 /min Catherine Podlogar UI ARCHITECT[employer] Work Phone: [facility] 06-11-2023 10:05-0500 Respiratory rate 16 /min Catherine Podlogar UI ARCHITECT.[employer] Work Phone: [facility] 06-11-2023 10:05-0500 SaO2% (BldA) [Mass fraction] 96 % Catherine Podlogar UI ARCHITECT[employer] Work Phone: [facility] 06-11-2023 10:05-0500 Systolic blood pressure 114 mm[Hg] Catherine Podlogar UI ARCHITECT[employer] Work Phone: [facility] 05-08-2023 09:19-0500 Body temperature 97.9 [degF] Injection Wstr Work Phone: [facility] 05-08-2023 09:19-0500 Body weight 72.58 kg Injection Wstr Work Phone: [facility] 05-08-2023 09:19-0500 Diastolic blood pressure 58 mm[Hg] Injection Wstr Work Phone: [facility] 05-08-2023 09:19-0500 Heart rate 74 /min Injection Wstr Work Phone: [facility] 05-08-2023 09:19-0500 Respiratory rate 12 /min Injection Wstr Work Phone: [facility] 05-08-2023 09:19-0500 SaO2% (BldA) [Mass fraction] 95 % Injection Wstr Work Phone: [facility] 05-08-2023 09:19-0500 Systolic blood pressure 102 mm[Hg] Injection Wstr Work Phone: [facility] 02-13-2023 10:26-0500 Diastolic blood pressure 66 mm[Hg] Injection Wstr Work Phone: [facility] 02-13-2023 10:26-0500 Heart rate 85 /min Injection Wstr Work Phone: [facility] 02-13-2023 10:26-0500 SaO2% (BldA) [Mass fraction] 98 % Injection Wstr Work Phone: [facility] 02-13-2023 10:26-0500 Systolic blood pressure 109 mm[Hg] Injection Wstr Work Phone: [facility] 12-19-2022 09:15-0400 Body temperature 98.1 [degF] Injection Wstr Work Phone: [facility] 12-19-2022 09:15-0400 Diastolic blood pressure 64 mm[Hg] Injection Wstr Work Phone: [facility] 12-19-2022 09:15-0400 Heart rate 78 /min Injection Wstr Work Phone: [facility] 12-19-2022 09:15-0400 Systolic blood pressure 121 mm[Hg] Injection Wstr Work Phone: [facility] 11-21-2022 09:37-0400 Body temperature 96.91 [degF] Injection Wstr Work Phone: [facility] 11-21-2022 09:37-0400 Body weight 68.95 kg Injection Wstr Work Phone: [facility] 11-21-2022 09:37-0400 Diastolic blood pressure 58 mm[Hg] Injection Wstr Work Phone: [facility] 11-21-2022 09:37-0400 Heart rate 78 /min Injection Wstr Work Phone: [facility] 11-21-2022 09:37-0400 Systolic blood pressure 99 mm[Hg] Injection Wstr Work Phone: [facility] 11-19-2022 13:18-0400 Body height 170.2 cm Derrek Samuel PA-C Work Phone: [facility] 11-19-2022 13:18-0400 Body temperature 97.39 [degF] Derrek Valhalla PA-C Work Phone: [facility] 11-19-2022 13:18-0400 Body weight 69.22 kg Derrek Samuel PA-C Work Phone: [facility] 11-19-2022 13:18-0400 Diastolic blood pressure 72 mm[Hg] Derrek Samuel PA-C Work Phone: [facility] 11-19-2022 13:18-0400 Heart rate 101 /min Derrek Valhalla PA-C Work Phone: [facility] 11-19-2022 13:18-0400 SaO2% (BldA) [Mass fraction] 100 % Derrek Samuel PA-C Work Phone: [facility] 11-19-2022 13:18-0400 Systolic blood pressure 116 mm[Hg] Derrek Valhalla PA-C Work Phone: [facility] 10-24-2022 09:12-0400 Body temperature 96.8 [degF] Injection Wstr Work Phone: [facility] 10-24-2022 09:12-0400 Diastolic blood pressure 51 mm[Hg] Injection Wstr Work Phone: [facility] 10-24-2022 09:12-0400 Heart rate 66 /min Injection Wstr Work Phone: [facility] 10-24-2022 09:12-0400 Systolic blood pressure 99 mm[Hg] Injection Wstr Work Phone: [facility] 10-14-2022 09:15-0400 Body temperature 97.3 [degF] Injection Wstr Work Phone: [facility] 10-14-2022 09:15-0400 Body weight 68.49 kg Injection Wstr Work Phone: [facility] 10-14-2022 09:15-0400 Diastolic blood pressure 64 mm[Hg] Injection Wstr Work Phone: [facility] 10-14-2022 09:15-0400 Heart rate 75 /min Injection Wstr Work Phone: [facility] 10-14-2022 09:15-0400 Systolic blood pressure 104 mm[Hg] Injection Wstr Work Phone: [facility] 09-26-2022 09:49-0400 Body temperature 97.5 [degF] Injection Wstr Work Phone: [facility] 09-26-2022 09:49-0400 Body weight 70.31 kg Injection Wstr Work Phone: [facility] 09-26-2022 09:49-0400 Diastolic blood pressure 57 mm[Hg] Injection Wstr Work Phone: [facility] 09-26-2022 09:49-0400 Heart rate 80 /min Injection Wstr Work Phone: [facility] 09-26-2022 09:49-0400 Systolic blood pressure 108 mm[Hg] Injection Wstr Work Phone: [facility] 09-23-2022 13:53-0400 Body height [address] PERFECTO CRAWFORD MD [facility] 09-23-2022 13:53-0400 Body temperature 97.7 [degF] DR PERFECTO CRAWFORD MD [facility] 09-23-2022 13:53-0400 Body weight [address] PERFECTO CRAWFORD MD [facility] 09-23-2022 13:53-0400 Diastolic Blood Pressure Non-Invasive [address] PERFECTO CRAWFORD MD [facility] 09-23-2022 13:53-0400 Heart rate 100 /min DR PERFECTO CRAWFORD MD [facility] 09-23-2022 13:53-0400 Respiratory rate 18 /min DR PERFECTO CRAWFORD MD [facility] 09-23-2022 13:53-0400 Systolic Blood Pressure Non-Invasive [address] PERFECTO CRAWFORD MD [facility] 08-16-2022 11:01-0400 Body temperature 97.2 [degF] Sanjeev Aranda UI ARCH[employer]ECT[employer] Work Phone: [facility] 08-16-2022 11:01-0400 Body weight 69.63 kg Screven Aranda UI ARCHITECT.[employer] Work Phone: [facility] 08-16-2022 11:01-0400 Diastolic blood pressure 76 mm[Hg] Sanjeev Aranda UI ARCHITECT[employer] Work Phone: [facility] 08-16-2022 11:01-0400 Heart rate 84 /min Sanjeev Aranda UI ARCHITECT.[employer] Work Phone: [facility] 08-16-2022 11:01-0400 Systolic blood pressure 104 mm[Hg] Sanjeev Aranda UI ARCHITECT[employer] Work Phone: [facility] 04-26-2022 11:07-0500 Body height 170.2 cm Sp Restrepoishnan DO Work Phone: [facility] 04-26-2022 11:07-0500 Body weight 69.4 kg Sp Mckeon DO Work Phone: [facility] 04-26-2022 11:07-0500 Respiratory rate 18 /min Sp Mckeon DO Work Phone: [facility] 02-27-2022 10:02-0500 Diastolic blood pressure 61 mm[Hg] Lyn Mcgowan MD Work Phone: [facility] 02-27-2022 10:02-0500 Heart rate 64 /min Lyn Mcgowan MD Work Phone: [facility] 02-27-2022 10:02-0500 Respiratory rate 16 /min Lyn Mcgowan MD Work Phone: [facility] 02-27-2022 10:02-0500 SaO2% (BldA) [Mass fraction] 94 % Lyn Mcgowan MD Work Phone: [facility] 02-27-2022 10:02-0500 Systolic blood pressure 102 mm[Hg] Lyn Mcgowan MD Work Phone: [facility] 02-27-2022 08:45-0500 Body temperature 96.21 [degF] Lyn Mcgowan MD Work Phone: [facility] 02-27-2022 08:45-0500 Body weight 71 kg Lyn Mcgowan MD Work Phone: [facility] 02-14-2022 10:33-0500 Body height 170.3 cm Lillian Lopez MD Work Phone: [facility] 02-14-2022 10:33-0500 Body temperature 97 [degF] Lillian Lopez MD Work Phone: [facility] 02-14-2022 10:33-0500 Body weight 70.99 kg Lillian Lopez MD Work Phone: [facility] 02-14-2022 10:33-0500 Diastolic blood pressure 63 mm[Hg] Lillian Lopez MD Work Phone: [facility] 02-14-2022 10:33-0500 Heart rate 96 /min Lillian Lopez MD Work Phone: [facility] 02-14-2022 10:33-0500 SaO2% (BldA) [Mass fraction] 98 % Lillian Lopez MD Work Phone: [facility] 02-14-2022 10:33-0500 Systolic blood pressure 113 mm[Hg] Lillian Lopez MD Work Phone: [facility] 11-13-2021 09:01-0400 Body weight 70.67 kg Arsalan Lilly MD Work Phone: [facility] 11-13-2021 09:01-0400 Diastolic blood pressure 62 mm[Hg] Arsalan Lilly MD Work Phone: [facility] 11-13-2021 09:01-0400 Heart rate 78 /min Arsalan Lilly MD Work Phone: [facility] 11-13-2021 09:01-0400 Respiratory rate 16 /min Arsalan Lilly MD Work Phone: [facility] 11-13-2021 09:01-0400 SaO2% (BldA) [Mass fraction] 98 % Arsalan Lilly MD Work Phone: [facility] 11-13-2021 09:01-0400 Systolic blood pressure 110 mm[Hg] Arsalan Lilly MD Work Phone: [facility] 09-05-2021 10:11-0400 Body height 172.7 cm Jayram Shane DO Work Phone: [facility] 09-05-2021 10:11-0400 Body weight 69.4 kg Jayram Shane DO Work Phone: [facility] 09-05-2021 10:11-0400 Diastolic blood pressure 60 mm[Hg] Jayram Shane DO Work Phone: [facility] 09-05-2021 10:11-0400 Systolic blood pressure 113 mm[Hg] Jayram Shane DO Work Phone: [facility] 09-04-2021 12:55-0400 Body height 172.7 cm Jazlyn Lombardi III, MD Work Phone: [facility] 09-04-2021 12:55-0400 Body mass index (BMI) [Ratio] 23.14 kg/m2 Jazlyn Lombardi III, MD Work Phone: [facility] 09-04-2021 12:55-0400 Body temperature 98.4 [degF] Jazlyn Lombardi III, MD Work Phone: [facility] 09-04-2021 12:55-0400 Body weight 69.04 kg Jazlyn Lombardi III, MD Work Phone: [facility] 09-04-2021 12:55-0400 Diastolic blood pressure 67 mm[Hg] Jazlyn Lombardi III, MD Work Phone: [facility] 09-04-2021 12:55-0400 Heart rate 98 /min Jalzyn Lombardi III, MD Work Phone: [facility] 09-04-2021 12:55-0400 Respiratory rate 16 /min Jazlyn Lombardi III, MD Work Phone: [facility] 09-04-2021 12:55-0400 SaO2% (BldA) [Mass fraction] 95 % Jazlyn Lombardi III, MD Work Phone: [facility] 09-04-2021 12:55-0400 Systolic blood pressure 126 mm[Hg] Jazlyn Lombardi III, MD Work Phone: [facility] 08-28-2021 11:37-0400 Body temperature 97.7 [degF] Lillian Lopez MD Work Phone: [facility] 08-28-2021 11:37-0400 Body weight 69.63 kg Lillian Lopez MD Work Phone: [facility] 08-28-2021 11:37-0400 Diastolic blood pressure 55 mm[Hg] Lillian Lopez MD Work Phone: [facility] 08-28-2021 11:37-0400 Heart rate 95 /min Lillian Lopez MD Work Phone: [facility] 08-28-2021 11:37-0400 Systolic blood pressure 100 mm[Hg] Lillian Lopez MD Work Phone: [facility] Encounters Encounter Date Encounter Type Care Provider Facility Start: 01-26-2025 End: 01-26-2025 ambulatory ARSALAN LILLY Facility:[facility] Start: 01-21-2025 End: 01-21-2025 ambulatory ARSALAN LILLY Facility:[facility] Start: 01-14-2025 End: 01-14-2025 ambulatory ARSALAN LILLY Facility:[facility] Start: 12-29-2024 End: 12-29-2024 ambulatory ARSALAN LILLY Facility:[facility] Start: 12-23-2024 End: 12-23-2024 ambulatory ELIAN Ag LILLY Facility:[facility] Start: 12-22-2024 ambulatory CANDACE Langston ty:[facility] Start: 12-14-2024 End: 12-14-2024 Patient encounter procedure Linden Mcguire MD Work Phone: Otolaryngology Comment on above: Surgical followup vi sit (Primary Dx) Start: 12-14-2024 End: 12-14-2024 ambulatory ARSALAN LILLY Facility:[facility] Start: 12-07-2024 End: 12-07-2024 Follow-up encounter Arsalan Lilly MD Work Phone: [facility] Comment on above: Results Start: 12-03-2024 End: 12-07-2024 Refill Arsalan Castro MD Work Phone: [facility] Comment on above: Refill Request Start: 12-02-2024 End: 12-02-2024 Admission to establishment [facility] Start: 12-02-2024 End: 12-02-2024 Anesthesia consultation [facility] Comment on above: Gastroesophageal ref lux disease with esophagitis, unspecified whether hemorrhage (Primary Dx); Bilateral carotid bruits; Malignant neoplasm of prostate (HCC); 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); Septic shock (HCC) Start: 12-02-2024 End: 12-02-2024 ambulatory [facility] Facility:[facility] Start: 12-01-2024 End: 12-01-2024 E-mail encounter from caregiver Nilay Ramirez MD Work Phone: Infectious Disease Start: 12-01-2024 End: 12-01-2024 Patient encounter procedure Arsalan Castro MD Work Phone: Urology Comment on above: History of prostate cancer (Primary Dx); Nocturia; Septic shock (HCC); Malignant neoplasm of prostate (HCC); Essential (primary) hypertension Start: 12-01-2024 End: 12-01-2024 ambulatory Nilay Ramirez MD Work Phone: Infectious Disease Comment on above: AUGMENTIN 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) Start: 11-26-2024 End: 11-26-2024 [facility] Start: 11-26-2024 End: 11-26-2024 Patient encounter procedure Linden Mcguire MD Work Phone: Otolaryngology Comment on above: Surgical followup vi sit (Primary Dx) Septic shock (HCC); Streptococcal infection Start: 11-26-2024 End: 11-26-2024 [facility] Start: 11-17-2024 End: 11-17-2024 Telephone encounter Arsalan Castro MD Work Phone: Urology Comment on above: Appointment Start: 11-13-2024 End: 11-15-2024 Refill Dereje Villarreal MD Work Phone: Hematology/Oncology Comment on above: Refill Request Start: 11-12-2024 End: 11-12-2024 ambulatory ARSALAN LILLY Facility:[facility] Start: 11-11-2024 End: 11-15-2024 Refill Arsalan Castro MD Work Phone: [facility] Comment on above: Refill Request Start: 11-03-2024 ambulatory LINDEN MCGUIRE Facility:[facility] Start: 11-03-2024 End: 11-03-2024 Subsequent hospital visit by physician Linden Mcguire MD Work Phone: [facility] Comment on above: Open wound of scalp, unspecified open wound type, initial encounter [S01.00XA], Wound dehiscence [T81.30XA] Start: 11-02-2024 End: 11-02-2024 ambulatory Injection Ryne [facility] Work Phone: Hematology/Oncology Comment on above: 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) change pharmacy 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); 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) Refill Request Start: 11-02-2024 End: 11-02-2024 Patient encounter procedure Tee Ellis Work Phone: Hematology/Oncology Start: 11-02-2024 End: 11-02-2024 ambulatory DEREJE CORNELL Facility:[facility] Start: 11-01-2024 End: 11-01-2024 Anesthesia consultation Roxi YBARRA Work Phone: Pre Anesthesia Comment on above: Carotid Ultrasound R esults Start: 11-01-2024 End: 11-01-2024 E-mail encounter from caregiver Roxi YBARRA Work Phone: Pre Anesthesia Start: 10-29-2024 ambulatory ROXI MARTINEZ Facilit y:[facility] Start: 10-29-2024 Encounter for other preprocedural examination BASHIR KILLIAN [facility] Start: 10-29-2024 End: 10-29-2024 Preprocedural examination done [employer] Work Phone: [facility] Start: 10-29-2024 End: 10-29-2024 Subsequent hospital visit by physician Us Bharathi Turner Work Phone: Radiology Comment on above: Pre-op evaluation [Z 01.818] Start: 10-28-2024 End: 10-28-2024 Telephone encounter Roxi YBARRA Work Phone: Pre Anesthesia Comment on above: Pre-Op Update (Carot id [place]) Start: 10-28-2024 End: 10-28-2024 [facility] Start: 10-28-2024 End: 10-28-2024 Anesthesia consultation [place] [id number] Pre Anesthesia Comment on above: Pre-op evaluation (P rimary Dx); Bruit of right carotid artery; Malignant neoplasm of prostate (HCC); Secondary malignant neoplasm of bone (HCC); Squamous cell carcinoma of skin of scalp and neck; Anemia in neoplastic disease; Cholangitis (HCC); Essential (primary) hypertension; Personal history of tobacco use; Mixed hyperlipidemia; Gastroesophageal reflux disease with esophagitis, unspecified whether hemorrhage Start: 10-28-2024 End: 10-28-2024 Preprocedural examination done [address] Start: 10-27-2024 End: 10-27-2024 Patient encounter procedure Davida Al MD Work Phone: General Surgery Comment on above: Sepsis with acute or rachel dysfunction and septic shock, due to unspecified organism, unspecified organ dysfunction type (HCC) (Primary Dx) Start: 10-27-2024 End: 10-27-2024 ambulatory DAVIDA AL Facility:[facility] Start: 10-22-2024 End: 10-22-2024 Patient encounter procedure Arsalan Lilly MD Work Phone: [facility] Comment on above: Septic shock (HCC) ( Primary Dx); Streptococcal infection; Hypokalemia; Hypophosphatemia; Prostate cancer (HCC); Metastasis to bone (HCC); Anemia, unspecified type; Thrombocytopenia; Urinary frequency; Bilateral lower extremity edema; Pulmonary hypertension (HCC) Start: 10-22-2024 End: 10-22-2024 ambulatory DAVIDA AL Facility:[facility] Start: 10-22-2024 End: 10-22-2024 ambulatory DAVIDA AL Facility:[facility] Start: 10-22-2024 End: 10-22-2024 Subsequent hospital visit by physician [facility] Work Phone: Radiology Comment on above: Cholangitis (HCC) [K 83.09] Start: 10-21-2024 End: 10-21-2024 Telephone encounter Arsalan Lilly MD Work Phone: [facility] Comment on above: Transition Of Care Start: 10-19-2024 End: 10-20-2024 Patient encounter procedure Arsalan Lilly MD Work Phone: [facility] Comment on above: Consult on October 22 Start: 10-19-2024 End: 10-20-2024 ambulatory Arsalan Lilly MD Work Phone: [facility] Start: 10-19-2024 Non-patient / Non-visit Dr. Pebbles anaya MD -[facility] Start: 10-19-2024 Non-patient / Non-visit Dr. Tabatha youssef MD -[facility] Work Phone: Start: 10-18-2024 Non-patient / Non-visit Dr. Tabatha youssef MD [facility] Work Phone: Start: 10-17-2024 Non-patient / Non-visit Dr. Ainsley Augustine MD [facility] Work Phone: Start: 10-16-2024 Non-patient / Non-visit Dr. Ainsley Augustine MD -[facility] Work Phone: Start: 10-15-2024 Non-patient / Non-visit Dr. Carlos english DO -[facility] Start: 10-15-2024 ambulatory Rocco Rhoades ty:[facility] Start: 10-15-2024 End: 10-19-2024 Evaluation and management of inpatient Dr. Lety Augustine MD -Intensive Care Unit Work Phone: Start: 10-14-2024 End: 10-14-2024 Telephone encounter Davida Al MD Work Phone: General Surgery Comment on above: Appointment; Orders Start: 10-14-2024 ambulatory Lydia Rhoades ty:[facility] Start: 10-14-2024 Non-patient / Non-visit Dr. Nba Mauricio MD -[facility] Work Phone: Start: 10-14-2024 End: 10-14-2024 Admission to same day surgery center Dr. Lydia Mauricio [facility] Work Phone: Start: 10-14-2024 End: 10-14-[address] López Lilly MD Work Phone: [facility] Start: 10-13-2024 End: 10-13-2024 Telephone encounter Davida Al MD Work Phone: General Surgery Comment on above: Request Outside [facility] Records Start: 10-13-2024 End: 10-13-2024 Patient encounter procedure Davida Al MD Work Phone: General Surgery Comment on above: Sepsis with acute or rachel dysfunction and septic shock, due to unspecified organism, unspecified organ dysfunction type (HCC) (Primary Dx); Cholangitis (HCC) Start: 10-13-2024 End: 10-13-2024 ambulatory DAVIDA AL Facility:[facility] Start: 10-12-2024 End: 10-12-2024 Patient encounter procedure Linden Mcguire MD Work Phone: Otolaryngology Comment on above: Open wound of scalp, unspecified open wound type, initial encounter (Primary Dx); Wound dehiscence Start: 10-12-2024 End: 10-12-2024 ambulatory LINDEN MCGUIRE Facility:[facility] Start: 10-11-2024 End: 12-11-2024 Follow-up encounter Karin Lr APRN.REPRINT SORTER Work Phone: [place] Provider Adult Start: 10-06-2024 End: 10-11-2024 Admission to same day surgery center Dereje Villarreal MD Work Phone: Hematology/Oncology Comment on above: Wound from Mohs surg philip Start: 10-06-2024 End: 10-11-2024 ambulatory Dereje Villarreal MD Work Phone: Hematology/Oncology Start: 10-01-2024 End: 11-30-2024 Telephone encounter Linden Mcguire MD Work Phone: [facility] Comment on above: Results Start: 10-01-2024 End: 10-01-2024 Nursing evaluation of patient and report Derm Surgery Nurse Work Phone: Dermatology Comment on above: 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) Start: 10-01-2024 End: 10-01-2024 ambulatory SELF Facility:[facility] Start: 09-30-2024 End: 09-30-2024 Patient encounter procedure Dereje Villarreal MD Work Phone: Hematology/Oncology Start: 09-30-2024 End: 09-30-2024 [facility] Work Phone: [facility]Oncology Comment on above: 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) Start: 09-30-2024 End: 09-30-2024 Telephone encounter Dereje Villarreal MD Work Phone: Hematology/Oncology Start: 09-28-2024 ambulatory BASHIR A MASCI Facility:[facility] Start: 09-28-2024 End: 09-28-2024 Subsequent hospital visit by physician [facility] [employer] [facility] (I-Stat/1.5t) Work Phone: Radiology Comment on above: 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 Laura Nugent MD -[facility] Work Phone: Start: 09-22-2024 Non-patient / Non-visit Dr. Rohit Crawford MD -[facility] Start: 09-21-2024 Non-patient / Non-visit Dr. Rohit Crawford MD -[facility] Start: 09-21-2024 End: 09-21-2024 Telephone encounter Dereje Villarreal MD Work Phone: Hematology/Oncology Comment on above: Patient Question Start: 09-21-2024 Non-patient / Non-visit Dr. Laura Nugent MD -[facility] Work Phone: Start: 09-20-2024 End: 09-20-2024 Refill Dereje Villarreal MD Work Phone: Hematology/Oncology Comment on above: Refill Request Start: 09-20-2024 Non-patient / Non-visit Dr. Laura Nugent MD -[facility] Work Phone: Start: 09-19-2024 Non-patient / Non-visit Dr. Laura Nugent MD -[facility] Work Phone: Start: 09-18-2024 Non-patient / Non-visit Dr. Laura Nugent MD -[facility] Work Phone: Start: 09-18-2024 ambulatory López Faridamelissa Hampton lity:BMS Start: 09-18-2024 End: 09-22-2024 Evaluation and management of inpatient Dr. Ivan Nugent MD -Intensive Care Unit Work Phone: Start: 09-15-2024 End: 09-15-2024 Nursing evaluation of patient and report Madelaine Bronson MD Work Phone: Dermatology Comment on above: Non-healing surgical wound, subsequent encounter (Primary Dx); Hx of nonmelanoma skin cancer; Encounter for post surgical wound check Start: 09-15-2024 End: 09-15-2024 ambulatory MADELAINE BRONSON Facility:[facility] Start: 09-10-2024 End: 09-10-2024 ambulatory Injection Ryne [facility] Work Phone: Hematology/Oncology Comment on above: Prostate cancer (HCC ) (Primary Dx) Start: 09-10-2024 End: 09-10-2024 ambulatory SANJEEV ARANDA Facility:[facility] Start: 09-08-2024 End: 09-08-2024 Patient encounter procedure Dereje Villarreal MD Work Phone: Hematology/Oncology Start: 09-08-2024 End: 09-08-2024 ambulatory Injection Ryne [facility] Work Phone: Hematology/Oncology Comment on above: Prostate cancer (HCC ) (Primary Dx); 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) Start: 08-27-2024 End: 08-27-2024 ambulatory SELF Facility:[facility] Start: 08-26-2024 End: 08-26-2024 ambulatory CANDACE GUERRA Facility:[facility] Start: 08-20-2024 End: 08-20-2024 ambulatory Dereje Villarreal MD Work Phone: Hematology/Oncology Comment on above: discontinued Aranesp and Xgeva Start: 08-11-2024 End: 08-11-2024 Patient encounter procedure Dereje Villarreal MD Work Phone: Hematology/Oncology Start: 08-11-2024 End: 08-11-2024 ambulatory Injection Ryne [facility] Work Phone: Hematology/Oncology Comment on above: Prostate cancer (HCC ) (Primary Dx); 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) Prostate cancer (HCC ) (Primary Dx); 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); Prostate cancer metastatic to bone (HCC) Start: 08-09-2024 End: 08-09-2024 Patient encounter procedure Candace Guerra APRN.REPRINT SORTER Work Phone: Cardiology Comment on above: Vitamin D deficiency (Primary Dx); Iron deficiency; SOB (shortness of breath); Mixed hyperlipidemia Start: 08-09-2024 End: 08-09-2024 ambulatory ARSALAN LILLY Facility:[facility] Start: 07-14-2024 End: 07-14-2024 ambulatory Injection Ryne [facility] Work Phone: Hematology/Oncology Comment on above: 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); Prostate cancer (HCC) Start: 07-07-2024 End: 07-07-2024 Telephone encounter Suresh Hodges MD Work Phone: Radiation Oncology Start: 07-07-2024 End: 07-07-2024 ambulatory [facility] Facility:[facility] Start: 07-07-2024 End: 07-07-2024 Nursing evaluation of patient and report Derm Surgery Nurse Work Phone: Dermatology Comment on above: 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) Start: 06-24-2024 End: 06-24-2024 ambulatory [facility] Facility:[facility] Start: 06-24-2024 End: 06-24-2024 Patient encounter procedure Suresh Hodges MD Work Phone: Radiation Oncology Comment on above: Squamous cell carcin joseph of scalp Start: 06-17-2024 End: 06-17-2024 Telephone encounter Suresh Hodges MD Work Phone: Radiation Oncology Start: 06-17-2024 End: 06-17-2024 ambulatory [facility] Facility:[facility] Start: 06-17-2024 End: 06-17-2024 Patient encounter procedure Madelaine Bronson MD Work Phone: Dermatology Comment on above: 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) Start: 06-16-2024 End: 06-16-2024 [facility] Work Phone: Hematology/Oncology Comment on above: Prostate cancer (HCC ) (Primary Dx); 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) Start: 05-18-2024 End: 05-18-2024 Refill Dereje Villarreal MD Work Phone: Hematology/Oncology Comment on above: Refill Request Start: 05-17-2024 End: 05-18-2024 ambulatory Catherine Peraza APRN.CNP Work Phone: [facility] [place] Comment on above: motion sickness Start: 05-13-2024 End: 05-13-2024 Refill Dereje Villarreal MD Work Phone: Hematology/Oncology Comment on above: Refill Request Start: 05-12-2024 End: 05-12-2024 ambulatory Injection Ryne [facility] Work Phone: Hematology/Oncology Comment on above: 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); Prostate cancer (HCC) Start: 2024 End: 2024 Telephone encounter Richie Dejesus MD Work Phone: Dermatology Comment on above: SKIN CANCER Start: 05-04-2024 End: 05-04-2024 ambulatory ARSALAN LILLY Facility:[facility] Start: 05-04-2024 End: 05-04-2024 Patient encounter procedure Richie Dejesus MD Work Phone: Dermatology Comment on above: Skin neoplasm (Prima ry Dx) Start: 04-14-2024 End: 04-14-2024 ambulatory Injection Ryne [facility] Work Phone: Hematology/Oncology Comment on above: Prostate cancer (HCC ) (Primary Dx); 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) Start: 04-05-2024 End: 04-14-2024 Telephone encounter Bashir Mcmahon MD Work Phone: Pain Management Comment on above: Appointment (Appoint ment cancelled) Start: 04-01-2024 End: 04-01-2024 ambulatory Endy Curran PT [facility] [place] Comment on above: Left hip pain (Prima ry Dx); Radiculopathy, lumbar region; Decreased ROM of lumbar spine; Weakness of trunk musculature Start: 03-30-2024 End: 03-30-2024 Refill Dereje Villarreal MD Work Phone: Hematology/Oncology Comment on above: Refill Request Start: 03-24-2024 End: 03-24-2024 ambulatory Endy Curran PT [facility] [place] Comment on above: Left hip pain (Prima ry Dx); Radiculopathy, lumbar region; Decreased ROM of lumbar spine; Weakness of trunk musculature Start: 03-19-2024 End: 03-19-2024 ambulatory ARSALAN LILLY Facility:[facility] Start: 03-19-2024 End: 03-19-2024 Patient encounter procedure Richie Dejesus MD Work Phone: Dermatology Comment on above: Actinic keratosis (P rimary Dx) Start: 03-17-2024 End: 03-17-2024 ambulatory Injection Ryne [facility] Work Phone: Hematology/Oncology Comment on above: Prostate cancer (HCC ) (Primary Dx); 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) Start: 03-16-2024 End: 03-16-2024 ambulatory Juliano Magaña PT [facility] [place] Comment on above: Left hip pain (Prima ry Dx); Radiculopathy, lumbar region; Decreased ROM of lumbar spine; Weakness of trunk musculature Start: 03-15-2024 End: 03-15-2024 Refill Arsalan Lilly MD Work Phone: [facility] [place] Comment on above: Refill Request Start: 03-10-2024 End: 03-10-2024 ambulatory ARSALAN LILLY Facility:[facility] Start: 03-10-2024 End: 03-10-2024 Patient encounter procedure Catherine Peraza APRN.REPRINT SORTER Work Phone: [facility] [place] Comment on above: Medicare annual well ness visit, subsequent (Primary Dx); Screening for depression Start: 03-09-2024 End: 03-09-2024 ambulatory Jose David Cedeno L[facility] [place] Comment on above: Left hip pain (Prima ry Dx); Radiculopathy, lumbar region; Decreased ROM of lumbar spine; Weakness of trunk musculature Start: 03-02-2024 End: 03-02-2024 ambulatory Juliano Magaña PT [facility] [place] Comment on above: Left hip pain (Prima ry Dx); Radiculopathy, lumbar region; Decreased ROM of lumbar spine; Weakness of trunk musculature Start: 02-27-2024 End: 02-27-2024 ambulatory 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 [facility] [place] Comment on above: Left hip pain (Prima ry Dx); Radiculopathy, lumbar region; Decreased ROM of lumbar spine; Weakness of trunk musculature Start: 02-25-2024 End: 03-11-2024 Telephone encounter Vicente Roach MD Work Phone: Orthopaedics Comment on above: Patient Question Start: 02-25-2024 End: 02-25-2024 [facility] [place] Comment on above: Left hip pain (Prima ry Dx); Radiculopathy, lumbar region; Decreased ROM of lumbar spine; Weakness of trunk musculature Start: 02-23-2024 End: 02-23-2024 ambulatory ARSALAN LILLY Facility:[facility] Start: 02-23-2024 End: 02-23-2024 Patient encounter procedure Vicente Roach MD Work Phone: Orthopaedics Comment on above: Osteoarthritis of sp ine with radiculopathy, lumbar region (Primary Dx); Chronic left hip pain; Right hip pain Start: 02-20-2024 End: 02-20-2024 ambulatory [facility] [place] Comment on above: Left hip pain (Prima ry Dx); Radiculopathy, lumbar region; Decreased ROM of lumbar spine; Weakness of trunk musculature Start: 02-18-2024 End: 02-18-2024 ambulatory 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 [facility] [place] Comment on above: Left hip pain (Prima ry Dx); Radiculopathy, lumbar region; Decreased ROM of lumbar spine; Weakness of trunk musculature Start: 02-18-2024 End: 02-18-2024 ambulatory Injection Yrne c [facility] Work Phone: Hematology/Oncology Comment on above: 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); Prostate cancer (HCC) Start: 02-16-2024 End: 02-16-2024 ambulatory López Lilly Facility[facility] Start: 02-16-2024 End: 02-16-2024 ambulatory López Lilly Facility:[facility] Start: 02-13-2024 End: 02-13-2024 ambulatory 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 [place] Comment on above: Left hip pain (Prima ry Dx); Radiculopathy, lumbar region; Decreased ROM of lumbar spine; Weakness of trunk musculature Start: 02-11-2024 End: 02-11-2024 ambulatory Roseanna Tate [facility]iel [place] Comment on above: Left hip pain (Prima ry Dx); Radiculopathy, lumbar region; Decreased ROM of lumbar spine; Weakness of trunk musculature Start: 02-10-2024 End: 02-10-2024 Refill Dereje Villarreal MD Work Phone: Hematology/Oncology Comment on above: Refill Request Start: 02-09-2024 End: 02-09-2024 ambulatory Arsalan Lilly MD Work Phone: [facility] Comment on above: medical history Start: 02-05-2024 End: 02-05-2024 Telephone encounter Arsalan Lilly MD Work Phone: [facility] Comment on above: Insurance Authorizat ion (cyclobenzaprine) Start: 02-05-2024 End: 02-06-2024 ambulatory López Lilly Facility:[facility] Start: 02-03-2024 End: 02-03-2024 ambulatory ARSALAN LILLY Facility:[facility] Start: 02-03-2024 End: 02-03-2024 Telephone encounter Arsalan Lilly MD Work Phone: [facility] Comment on above: Results Start: 02-03-2024 End: 02-03-2024 Subsequent hospital visit by physician [facility] Work Phone: Radiology Comment on above: Left inguinal pain [ R10.32] Start: 02-03-2024 End: 02-03-2024 Patient encounter procedure Arsalan Lilly MD Work Phone: [facility] Comment on above: Left inguinal pain ( Primary Dx); Spinal stenosis of lumbar region, unspecified whether neurogenic claudication present Start: 02-03-2024 End: 02-03-2024 ambulatory ARSALAN LILLY Facility:[facility] Start: 01-29-2024 End: 01-29-2024 ambulatory Endy Curran PT [facility] [place] Comment on above: Left hip pain (Prima ry Dx); Radiculopathy, lumbar region; Decreased ROM of lumbar spine; Weakness of trunk musculature Start: 01-23-2024 End: 01-23-2024 Telephone encounter Karin ANTHONY Hematology/Oncology Comment on above: Social Work Services Start: 01-21-2024 End: 01-21-2024 Patient encounter procedure Dereje Villarreal MD Work Phone: Hematology/Oncology Start: 01-21-2024 End: 01-21-2024 ambulatory Injection Ryne [facility] Work Phone: Hematology/Oncology Comment on above: 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); Prostate cancer (HCC) Right hip pain (Prim monica Dx); Prostate cancer (HCC); 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) Start: 12-30-2023 End: 12-30-2023 Telephone encounter Catherine Peraza APRN.REPRINT SORTER Work Phone: [facility] [place] Comment on above: Results; hip xray re sults Start: 12-24-2023 End: 12-24-2023 Subsequent hospital visit by physician Xr [facility] [place] Work Phone: Radiology Comment on above: Left hip pain [M25.5 52] Start: 12-24-2023 End: 12-24-2023 Patient encounter procedure Catherine Peraza APRN.REPRINT SORTER Work Phone: [facility] [place] Comment on above: Left hip pain (Prima ry Dx) Start: 12-17-2023 End: 12-17-2023 ambulatory Injection Ryne [facility] Work Phone: Hematology/Oncology Comment on above: Prostate cancer (HCC ) (Primary Dx); 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) Start: 12-11-2023 End: 12-12-2023 Telephone encounter Tee Ellis Work Phone: Hematology/Oncology Comment on above: Results Start: 12-10-2023 End: 12-10-2023 Subsequent hospital visit by physician [facility] Cat Scan Comment on above: 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, C79.51] Start: 12-04-2023 End: 12-05-2023 ambulatory Dereje Villarreal MD Work Phone: Hematology/Oncology Comment on above: recurring back pain Start: 12-02-2023 End: 12-02-2023 Patient encounter procedure Richie Dejesus MD Work Phone: Dermatology Comment on above: Xerosis cutis (Prima ry Dx); Actinic keratosis; Seborrheic keratosis; Lentigines; Cabrera angioma; Multiple benign nevi; Personal history of skin cancer Start: 11-19-2023 End: 11-19-2023 ambulatory Injection Ryne [facility] Work Phone: Hematology/Oncology Comment on above: 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); Prostate cancer (HCC) Start: 11-17-2023 Refill Arsalan Castro MD Work Phone: [facility] Comment on above: Refill Request Start: 11-12-2023 ambulatory ARSALAN LILLY Facility:[facility] Start: 11-12-2023 End: 11-12-2023 Subsequent hospital visit by physician [facility] 1 [facility] Work Phone: Cardiology Lab Comment on above: SOB (shortness of br eath) [R06.02] Start: 11-12-2023 [facility] Start: 11-12-2023 End: 11-12-2023 Subsequent hospital visit by physician [facility] 2 Work Phone: Molecular Imaging Comment on above: SOB (shortness of br eath) [R06.02] Start: 11-11-2023 Refill Bashir Oliveira Work Phone: Hematology/Oncology Comment on above: Refill Request Start: 11-11-2023 Telephone encounter Sahara arriaga RN Cardiology Lab Comment on above: Reminder Call Start: 10-22-2023 End: 10-22-2023 ambulatory Dereje Villarreal MD Work Phone: Hematology/Oncology Comment on above: 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); 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) Prostate cancer (HCC ) (Primary Dx); 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) Start: 10-22-2023 End: 10-22-2023 Patient encounter procedure Dereje Villarreal MD Work Phone: Hematology/Oncology Start: 10-16-2023 End: 10-16-2023 Patient encounter procedure Dorcas Ryan Romero DO Work Phone: Cardiology Comment on above: SOB (shortness of br eath) (Primary Dx); Abnormal ECG; Chest pain, unspecified type; Mixed hyperlipidemia Start: 10-16-2023 End: 10-16-2023 ambulatory ARSALAN LILLY Facility:[facility] Start: 10-16-2023 Telephone encounter Dorcas Romero DO Work Phone: Cardiology Comment on above: Appointment Start: 10-03-2023 Refill Dereje khan MD Work Phone: Hematology/Oncology Comment on above: Refill Request Start: 10-02-2023 End: 10-02-2023 ambulatory Injection Ryne [facility] Work Phone: Hematology/Oncology Comment on above: Prostate cancer (HCC ) (Primary Dx) Start: 09-24-2023 End: 09-24-2023 ambulatory Injection Ryne [facility] Work Phone: Hematology/Oncology Comment on above: Prostate cancer (HCC ) (Primary Dx); 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) Start: 09-10-2023 Refill Catherine Peraza APRN.CNP Work Phone: [facility] [place] Comment on above: Refill Request Start: 08-27-2023 Telephone encounter Dereje dallas MD Work Phone: Hematology/Oncology Comment on above: Patient Update (richar stephen) Start: 08-27-2023 End: 08-27-2023 ambulatory Injection Ryne [facility] Work Phone: Hematology/Oncology Comment on above: Prostate cancer (HCC ) (Primary Dx); 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) Start: 08-13-2023 Refill Sanjeev tinajero APRN.REPRINT SORTER Work Phone: Hematology/Oncology Comment on above: Refill Request Start: 08-04-2023 Telephone encounter Juanito Ybarra i, MD Work Phone: Cardiology Comment on above: Appointment Start: 07-31-2023 End: 07-31-2023 ambulatory Injection Ryne [facility] Work Phone: Hematology/Oncology Comment on above: 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); Prostate cancer (HCC) Start: 07-30-2023 Orders Only Dereje khan MD Work Phone: Hematology/Oncology Start: 06-17-2023 End: 06-17-2023 Refill Arsalan Lilly MD Work Phone: [facility] [place] Comment on above: Refill Request Results SOB (shortness of br eath) [R06.02] Start: 06-16-2023 Telephone encounter Sahara arriaga global security architect Lab Comment on above: Reminder Call Start: 06-11-2023 Telephone encounter López Lilly MD Work Phone: Family [facility] Comment on above: Results Start: 06-11-2023 End: 06-11-2023 Subsequent hospital visit by physician Xr [facility] [place] Work Phone: Radiology Comment on above: SOB (shortness of br eath) [R06.02] Start: 06-11-2023 End: 06-11-2023 Patient encounter procedure Catherine Peraza APRN.REPRINT SORTER Work Phone: Family 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) Start: 05-16-2023 Refill Screven Carpente r UI ARCHITECT.REPRINT SORTER Work Phone: Hematology/Oncology Comment on above: Refill Request Start: 05-08-2023 End: 05-08-2023 ambulatory Injection Ryne [facility] Work Phone: Hematology/Oncology Comment on above: Prostate cancer (HCC ) (Primary Dx) Start: 03-17-2023 ambulatory Arsalan Lilly MD Work Phone: [facility] [place] Comment on above: blood test results Start: 03-17-2023 Telephone encounter López Lilly MD Work Phone: [facility] [place] Comment on above: Results Start: 03-13-2023 Telephone encounter Natalya gastelum RN Work Phone: Hematology/Oncology Comment on above: Patient Update (Richar stephen order) Start: 03-13-2023 End: 03-13-2023 ambulatory Injection Ryne [facility] Work Phone: Hematology/Oncology Comment on above: Prostate cancer (HCC ) (Primary Dx) Start: 02-18-2023 Refill Sanjeev Carpente r UI ARCHITECT.REPRINT SORTER Work Phone: Hematology/Oncology Comment on above: Refill Request Start: 02-13-2023 End: 02-13-2023 ambulatory Injection Ryne [facility] Work Phone: Hematology/Oncology Comment on above: Prostate cancer (HCC ) (Primary Dx) Start: 01-21-2023 ambulatory Arsalan Lilly MD Work Phone: [facility] [place] Comment on above: vaccinations on Mych art Start: 01-16-2023 End: 01-16-2023 ambulatory Injection Ryne [facility] Work Phone: Hematology/Oncology Comment on above: Prostate cancer (HCC ) (Primary Dx) Start: 01-15-2023 ambulatory Sanjeev Carpente r UI ARCHITECT.REPRINT SORTER Work Phone: Hematology/Oncology Comment on above: calcium supplement Start: 01-14-2023 Refill Dereje khan MD Work Phone: Hematology/Oncology Comment on above: Refill Request Start: 12-19-2022 End: 12-19-2022 ambulatory Injection Ryne [facility] Work Phone: Hematology/Oncology Comment on above: Prostate cancer (HCC ) (Primary Dx) Start: 11-27-2022 End: 11-27-2022 Patient encounter procedure Richie Dejesus MD Work Phone: Dermatology Comment on above: Seborrheic keratosis (Primary Dx); Cabrera angioma; Lentigines; Multiple benign nevi; Actinic keratosis; Personal history of skin cancer; Senile purpura (HCC) Start: 11-21-2022 End: 11-21-2022 ambulatory Injection Ryne [facility] Work Phone: Hematology/Oncology Comment on above: Prostate cancer (HCC ) (Primary Dx) Start: 11-20-2022 Refill Sanjeev tinajero APRN.CNP Work Phone: Hematology/Oncology Comment on above: Refill Request Start: 11-19-2022 End: 11-19-2022 Patient encounter procedure Derrek Baker PA-C Work Phone: General Surgery Comment on above: Hemorrhoids, unspeci fied hemorrhoid type (Primary Dx); Perianal cyst Start: 10-24-2022 End: 10-24-2022 ambulatory Injection Ryne [facility] Work Phone: Hematology/Oncology Comment on above: Prostate cancer (HCC ) (Primary Dx) Start: 10-14-2022 End: 10-14-2022 ambulatory Injection Ryne [facility] Work Phone: Hematology/Oncology Comment on above: Prostate cancer (HCC ) (Primary Dx) Start: 09-30-2022 ambulatory Arsalan Lilly MD Work Phone: [facility] Comment on above: Tetanus (Tdap) shot Start: 09-26-2022 End: 09-26-2022 ambulatory Injection Ryne [facility] Work Phone: Hematology/Oncology Comment on above: Prostate cancer (HCC ) (Primary Dx) Start: 09-23-2022 End: 09-23-2022 Emergency department patient visit ARSALAN LILLY MD Facility:[facility] Start: 09-23-2022 End: 09-23-2022 Emergency department patient visit DR PERFECTO CRAFWORD MD [facility] Start: 08-19-2022 Telephone encounter Sanjeev cruz UI ARCHITECT.REPRINT SORTER Work Phone: Hematology/Oncology Comment on above: Lab Orders Start: 08-16-2022 End: 08-16-2022 ambulatory Sanjeev Aranda UI ARCHITECT.REPRINT SORTER Work Phone: Hematology/Oncology Comment on above: 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); 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) Start: 08-16-2022 End: 08-16-2022 Patient encounter procedure Sanjeev Aranda UI ARCHITECT.REPRINT SORTER Work Phone: [facility] Start: 08-12-2022 Refill Bashir Oliveira Work Phone: Hematology/Oncology Comment on above: Refill Request; Refi ll Request Start: 08-01-2022 End: 08-01-2022 Nursing evaluation of patient and report Nurse Urol [facility] Work Phone: Urology Comment on above: Prostate cancer (HCC ) (Primary Dx) Start: 05-30-2022 End: 05-30-2022 Nursing evaluation of patient and report Nurse [facility] Work Phone: Urology Comment on above: Prostate cancer (HCC ) (Primary Dx) Start: 05-17-2022 End: 05-17-2022 Patient encounter procedure Richie Dejesus MD Work Phone: Dermatology Comment on above: Actinic keratosis (P rimary Dx) Start: 05-08-2022 Telephone encounter Odalis farrar [facility] Work Phone: Genetic Healthcare Comment on [...] about r efill Start: 04-17-2022 Refill Lillian Lopez MD Work Phone: Hematology/Oncology Comment on above: Refill Request Start: 03-21-2022 End: 03-21-2022 Nursing evaluation of patient and report Nurse Felishal [facility] Work Phone: Urology Comment on above: Prostate cancer (HCC ) (Primary Dx) Start: 03-08-2022 End: 03-08-2022 ambulatory Derrek Baker PA-C Work Phone: General Surgery Comment on above: Chronic superficial gastritis without bleeding (Primary Dx); Gastroesophageal reflux disease with esophagitis without hemorrhage; Family history of colon cancer Start: 03-08-2022 End: 03-08-2022 Telemedicine consultation with patient Derrek Graf ALVARADO Work Phone: [facility] Start: 03-06-2022 Telephone encounter López Lilly MD Work Phone: [facility] [place] Comment on above: Results Start: 02-27-2022 End: 02-27-2022 Subsequent hospital visit by physician Lyn Mcgowan MD Work Phone: Ambulatory Surgery Comment on above: History of colon deidre yps [Z86.010] Start: 02-21-2022 End: 02-21-2022 Nursing evaluation of patient and report Nurse Felishal [facility] Work Phone: Urology Comment on above: Prostate cancer (HCC ) (Primary Dx) Start: 02-14-2022 End: 02-14-2022 ambulatory Lillian Lopez MD Work Phone: Hematology/Oncology Comment on above: 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); 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); Bone metastasis (HCC); Family history of prostate cancer in father Start: 02-14-2022 End: 02-14-2022 Patient encounter procedure Lillian Lopez MD Work Phone: [facility] Start: 01-22-2022 ambulatory Arsalan Lilly MD Work Phone: [facility] Comment on above: Flu Shot Start: 01-19-2022 Refill Lillian Lopez MD Work Phone: Hematology/Oncology Comment on above: Refill Request Start: 01-02-2022 Refill Lillian Lopez MD Work Phone: Hematology/Oncology Comment on above: Refill Request Start: 12-13-2021 End: 12-13-2021 Nursing evaluation of patient and report Nurse Urol [facility] Work Phone: Urology Comment on [...] patient and report Nurse Urol [facility] Work Phone: Urology Comment on above: Prostate cancer (HCC ) (Primary Dx) Start: 11-13-2021 End: 11-13-2021 Patient encounter procedure Arsalan Lilly MD Work Phone: [facility] Comment on above: Prostate cancer (HCC ) (Primary Dx); Bone metastasis (HCC); Benign prostatic hyperplasia, unspecified whether lower urinary tract symptoms present; 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); Gastroesophageal reflux disease, unspecified whether esophagitis present; History of skin cancer; Screening for colon cancer Start: 10-11-2021 End: 10-11-2021 Nursing evaluation of patient and report Nurse Urol [facility] Work Phone: Urology Comment on above: Prostate cancer (HCC ) Start: 10-05-2021 ambulatory Sp braden DO Work Phone: Urology Comment on above: Billing Number Start: 10-05-2021 E-mail encounter chacho braden caregiver Sp Mckeon DO Work Phone: [facility] Start: 09-05-2021 End: 09-05-2021 ambulatory SP MCKEON Facility:[facility] Start: 09-05-2021 End: 09-05-2021 Patient encounter procedure Sp Mckeon DO Work Phone: [facility] Comment on above: BPH with elevated PS A Start: 09-04-2021 ambulatory Jazlyn LOMBARDI III Facili ty:[facility] Start: 09-04-2021 End: 09-05-2021 Office outpatient new 60 minutes Jazlyn Lombardi MD Work Phone: Division of Medical Oncology at [facility] Comment on above: Prostate cancer (Jessica sherri Dx) Start: 08-29-2021 Telephone encounter Ellen Cabral Hematology/Oncology Comment on above: Social Work Services Start: 08-28-2021 End: 08-28-2021 ambulatory Lillian Lopez MD Work Phone: Hematology/Oncology Comment on above: 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); Prostate cancer metastatic to bone (HCC); Bone metastasis (HCC) Start: 08-28-2021 End: 08-28-2021 Patient encounter procedure Lillian Lopez MD Work Phone: [facility] Start: 08-24-2021 End: 08-24-2021 Subsequent hospital visit by physician [facility] Work Phone: Nuclear Medicine Comment on above: 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, C79.51] Start: 08-24-2021 End: 08-24-2021 Subsequent hospital visit by physician Bashir Grijalva [facility] Work Phone: Nuclear Medicine Start: 08-16-2021 End: 08-16-2021 Nursing evaluation of patient and report Nurse Urol Read Work Phone: Urology Comment on above: Prostate cancer (HCC ) (Primary Dx) Start: 07-25-2021 Refill Luther horner MD Work Phone: [facility] Comment on above: Refill Request Start: 07-23-2021 Telephone encounter Natalya gastelum RN Work Phone: Hematology/Oncology Comment on above: Opened In Error Refill Request Start: 07-19-2021 End: 07-19-2021 Nursing evaluation of patient and report Nurse Urol [facility] Work Phone: Urology Comment on above: Prostate cancer (HCC ) Start: 07-13-2021 Telephone encounter Sp leonardo DO Work Phone: Urology Comment on above: Insurance Change for [employer] Start: 07-06-2021 Telephone encounter Natalya gastelum RN Work Phone: Hematology/Oncology Comment on above: Patient Update (Insu mario change/pharmacy change) Start: 07-05-2021 Refill Lillian Lopez MD Work Phone: Hematology/Oncology Comment on above: Refill Request Start: 02-14-2017 End: 02-14-2017 Ambulatory DORCAS WHEELER Facility:[facility] Procedures Date Procedure Procedure Detail Performing Clinician Start: 12-01-2024 Urnls dip stick/tablet rgnt auto w/o microscopy [facility] Provider Start: 10-22-2024 Urnls dip stick/tablet rgnt auto w/o microscopy Arsalan Lilly MD Work Phone: Start: 10-19-[address] Cesar Lilly MD Work Phone: Start: 10-19-2024 Serum inorganic phosphate measurement Dr. López Lilly MD Work Phone: Start: 10-17-2024 Blood disorder - initial assessment Dr. López Lilly MD Work Phone: Start: 10-15-2024 B[address] nucleic acid assay Dr. Morris Lilly MD Work Phone: Start: 10-15-[address] López Lilly MD Work Phone: Start: 10-15-2024 Identification procedure for living organism Dr. López Lilly MD Work Phone: Start: 10-15-2024 Legionella pneumophila antigen assay Dr. López Lilly MD Work Phone: Start: 10-15-[address] López Lilly MD Work Phone: Start: 10-15-2024 End: 10-15-2024 Streptococcus pneumoniae antigen assay Dr. López Lilly MD Work Phone: Start: 10-15-[address] López Lilly MD Work Phone: Start: 10-15-[address] Elian Lilly MD Work Phone: Start: 10-15-2024 Plain chest X-ray Dr. López Lilly MD Work Phone: Start: 10-15-2024 Computed tomography of abdomen and pelvis with intravenous contrast Dr. López Lilly MD Work Phone: Start: 10-15-2024 Urnls dip stick/tablet reagent auto microscopy Dr. López Lilly MD Work Phone: Start: 10-15-[address] Cesar Lilly MD Work Phone: Start: 09-28-2024 Mri brain brain stem w/o w/contrast material Bashir Killian DO Work Phone: Start: 09-22-[address] Cesar Lilly MD Work Phone: Start: 09-22-2024 Lymphocyte percent differential count Dr. López Lilly MD Work Phone: Start: 09-21-[address] Elian Lilly MD Work Phone: Start: 09-20-[address] López Lilly MD Work Phone: Start: 09-20-2024 Blood disorder - initial assessment Dr. López Lilly MD Work Phone: Start: 09-19-[address] Greg Lilly MD Work Phone: Start: 09-19-[address] López Lilly MD Work Phone: Start: 09-19-2024 Iadna-dna/rna gi pthgn multiplex probe tq 6-11 Dr. López Lilly MD Work Phone: Start: 09-19-2024 Computed tomography of abdomen and pelvis with contrast Dr. López Lilly MD Work Phone: Start: 09-18-[address] López Lilly MD Work Phone: Start: 09-18-2024 SARS-CoV-2, Influenza & RSV (PCR) Dr. Debra Lilly MD Work Phone: Start: 09-18-[address] López Lilly MD Work Phone: Start: 09-18-2024 Urnls dip stick/tablet reagent auto microscopy Dr. López Lilly MD Work Phone: Start: 09-18-2024 Plain chest X-ray Dr. López Lilly MD Work Phone: Start: 09-18-[address] Cesar Lilly MD Work Phone: Start: 08-26-2024 Echocardiography BASHIR MASCI Start: 08-09-2024 Ecg routine ecg w/least 12 lds i&r only [facility] Provider Start: 03-10-2024 Adult depression screening assessment Catherine Podlogar UI ARCHITECT.REPRINT SORTER Work Phone: Start: 02-03-2024 Dup-scan artl kirsty abdl/pel/scrot&/rpr orgn com Arsalan Lilly MD Work Phone: Start: 02-03-2024 Us scrotum & contents Arsalan Lilly MD Work Phone: Start: 12-10-2023 Ct lumbar spine w/contrast material Maria Isabel Ellis Work Phone: Start: 12-10-2023 Ct abdomen & pelvis w/o contrast material Teefernando Ellis Work Phone: Start: 11-12-2023 Myocardial spect multiple studies Christos Romero DO Work Phone: Start: 06-17-2023 Cv strs tst xers&/or rx cont ecg trcg only Catherine Podlogar UI ARCHITECT.REPRINT SORTER Work Phone: Start: 06-11-2023 Radiologic exam chest 2 views Catherine tapia UI ARCHITECT.REPRINT SORTER Work Phone: Start: 06-11-2023 Lipid 1996 panel - Serum or Plasma Catherine Podlogar UI ARCHITECT.REPRINT SORTER Work Phone: Start: 03-13-2023 Lipid 1996 panel - Serum or Plasma Alexis Dorsey RN Work Phone: Start: 02-27-2022 Level iv surg pathology gross&microscopic exam Lyn Mcgowan MD Work Phone: Start: 02-27-2022 Esophagogastroduodenoscopy transoral diagnostic Derrek Baker PA-C Work Phone: Start: 02-27-2022 Colonoscopy flx dx w/collj spec when pfrmd Derrek Baker PA-C Work Phone: Start: 02-27-2022 Colonoscopy Arsalan Lilly MD Work Phone: Start: 08-26-2021 Adult depression screening assessment Lillian Lopez MD Work Phone: Start: 08-24-2021 Bone &/joint imaging whole body Lillian fernandez MD Work Phone: Start: 03-11-2021 Adult depression screening assessment Lillian Lopez MD Work Phone: Start: 10-12-2018 Lipid 1996 panel - Serum or Plasma Injec t[facility] Work Phone: Start: 02-10-2017 Colonoscopy Lillian Lopez MD Work Phone: Tonsillectomy DR PERFECTO CRAWFORD MD Plan of Treatment Date Care Activity Detail Author Start: 09-23-2032 Urine microalbumin profile [facility] Start: 10-12-2028 Urine microalbumin profile DTAP,TDAP,TD (3 - Td or Tdap) [facility] Start: 06-10-2028 Lipid panel Lipid Screening [facility] Start: 03-13-2028 Lipid 1996 panel - Serum or Plasma Lipid Screening [facility] Start: 03-13-2028 Lipid panel Lipid Screening [facility] Start: 12-02-2027 Diabetes Screening Diabetes Screening [facility] Start: 11-03-2027 Diabetes Screening Diabetes Screening [facility] Start: 10-23-2027 Diabetes Screening Diabetes Screening [facility] Start: 10-01-2027 Diabetes Screening Diabetes Screening [facility] Start: 09-09-2027 Diabetes Screening Diabetes Screening [facility] Start: 08-12-2027 Diabetes Screening Diabetes Screening [facility] Start: 07-15-2027 Diabetes Screening Diabetes Screening [facility] Start: 06-17-2027 Diabetes Screening Diabetes Screening [facility] Start: 05-12-2027 Diabetes Screening Diabetes Screening [facility] Start: 04-14-2027 Diabetes Screening Diabetes Screening [facility] Start: 03-17-2027 Diabetes Screening Diabetes Screening [facility] Start: 02-27-2027 Colonoscopy COLONOSCOPY [facility] Start: 02-27-2027 COLORECTAL CANCER SCREENING COLORECTAL CANCER SCREENING [facility] Start: 02-27-2027 Screening for malignant neoplasm of colon [facility] Start: 02-17-2027 Diabetes Screening Diabetes Screening [facility] Start: 02-12-2027 PROSTATE CANCER SCREENING DISCUSSION PROSTATE CANCER SCREENING DISCUSSION [facility] Start: 01-20-2027 Diabetes Screening Diabetes Screening [facility] Start: 12-16-2026 Diabetes Screening Diabetes Screening [facility] Start: 11-20-2026 PROSTATE CANCER SCREENING DISCUSSION PROSTATE CANCER SCREENING DISCUSSION [facility] Start: 11-18-2026 Diabetes Screening Diabetes Screening [facility] Start: 10-21-2026 Diabetes Screening Diabetes Screening [facility] Start: 09-23-2026 Diabetes Screening Diabetes Screening [facility] Start: 08-26-2026 Diabetes Screening Diabetes Screening [facility] Start: 08-24-2026 PROSTATE CANCER SCREENING DISCUSSION PROSTATE CANCER SCREENING DISCUSSION [facility] Start: 07-30-2026 Diabetes Screening Diabetes Screening [facility] Start: 06-10-2026 Diabetes Screening Diabetes Screening [facility] Start: 06-04-2026 Diabetes Screening Diabetes Screening [facility] Start: 05-28-2026 PROSTATE CANCER SCREENING DISCUSSION PROSTATE CANCER SCREENING DISCUSSION [facility] Start: 04-16-2026 Diabetes Screening Diabetes Screening [facility] Start: 03-13-2026 Diabetes Screening Diabetes Screening [facility] Start: 12-01-2025 End: 12-01-2025 Patient encounter procedure 12/01/2025 9:15 AM EDT Office Visit Urology [address] [place] [id number] Arsalan Castro MD [address] [place] [address] 1 year follow up Urology Comment on above: 1 year follow up Start: 08-07-2025 DIABETES SCREEN DIABETES SCREEN [facility] Start: 08-07-2025 Diabetes Screening Diabetes Screening [facility] Start: 03-23-2025 End: 03-23-2025 ambulatory [facility] Comment on above: (SO)CBC/BMP(S)* QMO?ARANESP/LAB BAM Y* [facility] ONLY Start: 03-10-2025 Depression Screening Depression Screening [facility] Start: 03-10-2025 Medicare Annual Wellness Visit Medicare Annual Wellness Visit [facility] Start: 02-23-2025 End: 02-23-2025 ambulatory [facility] Comment on above: (SO)CBC/BMP(S)* QMO?ARANESP/LAB BAM Y* [facility] ONLY Start: 02-12-2025 DIABETES SCREEN DIABETES SCREEN [facility] Start: 01-26-2025 End: 01-26-2025 ambulatory 01/26/2025 2:45 PM EDT Infusion Center Hematology/Oncology [address] [place] [address] Wstr, Injection Ryne [facility] [address] [place] [address] QMO?ARANESP/LAB EARLY*WED ONLY Hematology/Oncology Comment on above: QMO?ARANESP/LAB EARLY*WED ONLY Start: 01-26-2025 End: 01-26-2025 ambulatory [facility] Comment on above: (SO)CBC/BMP(S)* 3 MO OV/LAB EARLY/IN J TODAY* NIMA [facility] ONLY Start: 01-25-2025 End: 01-25-2025 ambulatory [facility] Comment on above: (SO)CBC/BMP(S)* QMO?ARANESP/LAB BAM Y* 3 MO OV/LAB EARLY/IN J TODAY* NIMA Start: 01-20-2025 End: 01-20-2025 Patient encounter procedure 01/20/2025 9:30 AM EDT Office Visit Facial Plastics[facility]Reconstructio n [address] [place] [address] Linden Mcguire MD [address] [place], [place] [id number] follow up [facility] Comment on above: follow up Start: 01-05-2025 End: 01-05-2025 Patient encounter procedure 01/05/2025 9:40 AM EDT Office Visit Family [facility] [address] [place] [address] Arsalan Lilly MD [address] [place], [place] [address] 3 month follow up [facility] Comment on above: 3 month follow up Start: 12-31-2024 End: 12-31-2024 Patient encounter procedure 12/31/2024 10:30 AM EDT Office Visit Otolaryngology [address] [address] [place] [address] [place] [id number] POST OP Otolaryngology Comment on above: POST OP Start: 12-29-2024 End: 12-29-2024 ambulatory [facility] Comment on above: (SO)CBC/BMP(S)* QMO?ARANESP/LAB BAM Y* [facility]ED ONLY Start: 12-28-2024 End: 12-28-2024 ambulatory [facility] Comment on above: (SO)CBC/BMP(S)* QMO?ARANESP/LAB BAM Y* Start: 12-23-2024 End: 12-23-2024 Patient encounter procedure 12/23/2024 9:00 AM EDT Office Visit Dermatology [facility] [address] [place] [id number] Donnie Reich PA-C [address] [place] [address] FBSE Dermatology [facility] Comment on above: FBSE Start: 12-22-2024 End: 12-22-2024 Patient encounter procedure 12/22/2024 8:30 AM EDT Appointment Radiology [address] [place] [address] MRI BRAIN WO/W IVCON SCC (squamous cell carcinoma), scalp/neck [C44.42] Candace Shipman MD in [facility] Radiology Comment on above: MRI BRAIN WO/W IVCON SCC (squamous cell carcinoma), scalp/neck [C44.42] Candace Shipman MD in [facility] Start: 12-20-2024 End: 12-20-2024 Admission to same day surgery center 12/20/2024 7:30 AM EDT - 12/20/2024 9:25 AM EDT Surgery [facility] [address] [place] [id number] Linden Mcguire MD [address] [place] [address] GRAFT SKIN FULL THICKNESS FREE, INCL DIRECT CLOSURE DONOR SITE, SCALP, 20 SQ CM OR LESS [facility] Comment on above: GRAFT SKIN FULL THICKNESS FREE, INCL DIR ECT CLOSURE DONOR SITE, SCALP, 20 SQ CM OR LESS Start: 12-20-2024 End: 12-20-2024 Fth/gft free w/direct closure s/a/l 20 cm/< GRAFT SKIN FULL THICKNESS FREE, INCL DIRECT CLOSURE DONOR SITE, SCALP, 20 SQ CM OR LESS Open wound of scalp, unspecified open wound type, initial encounter Personal history of malignant neoplasm of skin 12/20/2024 7:30 AM EDT [facility] Start: 12-20-2024 Subsequent hospital visit by physician [facility] Comment on above: Open wound of scalp, unspecified open wo und type, initial encounter [S01.00XA], Personal history of malignant neoplasm of skin [Z85.828] Start: 12-14-2024 End: 12-14-2024 Patient encounter procedure 12/14/2024 11:45 AM EDT Office Visit Otolaryngology [address] [address] Linden Mcguire MD [address] [place] [address] POST OP Otolaryngology Comment on above: POST OP Start: 12-09-2024 End: 12-09-2024 Anesthesia consultation 12/09/2024 1:40 PM EDT PAT Pre Anesthesia [address] [place] [address] 2, Pacc [place] [address] [place] [address] PAcc Pre Anesthesia Comment on above: PAcc Start: 12-06-2024 Influenza vaccination Influenza Vaccine (#1) [facility] Start: 12-03-2024 End: 12-03-2024 Admission to same day surgery center 12/03/2024 2:10 PM EDT - 12/03/2024 4:00 PM EDT Surgery [facility] [address] [place] [address] Linden Mcguire MD [address] [place] [address] GRAFT SKIN FULL THICKNESS FREE, INCL DIRECT CLOSURE DONOR SITE, SCALP, 20 SQ CM OR LESS [facility] Comment on above: GRAFT SKIN FULL THICKNESS FREE, INCL DIR ECT CLOSURE DONOR SITE, SCALP, 20 SQ CM OR LESS Start: 12-03-2024 End: 12-03-2024 Fth/gft free w/direct closure s/a/l 20 cm/< GRAFT SKIN FULL THICKNESS FREE, INCL DIRECT CLOSURE DONOR SITE, SCALP, 20 SQ CM OR LESS Open wound of scalp, unspecified open wound type, initial encounter Personal history of malignant neoplasm of skin 12/03/2024 2:10 PM EDT [facility] Start: 12-03-2024 Subsequent hospital visit by physician 12/03/2024 2:10 PM EDT Hospital Encounter [facility] [address] [place] [address] Linden Mcguire MD [address] [place] [address] Open wound of scalp, unspecified open wound type, initial encounter [S01.00XA], Personal history of malignant neoplasm of skin [Z85.828] [facility] Comment on above: Open wound of scalp, unspecified open wo und type, initial encounter [S01.00XA], Personal history of malignant neoplasm of skin [Z85.828] Start: 12-02-2024 End: 12-02-2024 Anesthesia consultation 12/02/2024 1:10 PM EDT PAT Pre Anesthesia [address] [place] [address] Pacc Pre Anesthesia Comment on above: Pacc Start: 12-01-2024 End: 12-01-2024 Patient encounter procedure 12/01/2024 1:45 PM EDT Office Visit Urology [address] [place] [address] Arsalan Castro MD [address] [place] [id number] Med refills Urology Comment on above: Med refills Start: 12-01-2024 End: 12-01-2024 ambulatory [facility] Comment on above: (SO)CBC/BMP(S)* QMO?ARANESP/LAB BAM Y* WED ONLY Start: 11-30-2024 End: 11-30-2024 Patient encounter procedure 11/30/2024 10:45 AM EDT Office Visit Otolaryngology [address] [address] Linden Mcguire MD [address] [place], [place] [id number] follow up Otolaryngology Comment on above: follow up Start: 11-30-2024 End: 11-30-2024 ambulatory [facility] Comment on above: (SO)CBC/BMP(S)* QMO?ARANESP/LAB BAM Y* Start: 11-26-2024 End: 11-26-2024 Patient encounter procedure 11/26/2024 10:00 AM EDT Office Visit Infectious Disease [address] [place] [address] Nilay Ramirez MD [address] [place], [place] [id number] Dx: Septic shock (HCC) [A41.9, R65.21]; Streptococcal infection [A49.1] Infectious Disease Comment on above: Dx: Septic shock (HCC) [A41.9, R65.21]; Streptococcal infection [A49.1] Start: 11-20-2024 DIABETES SCREEN DIABETES SCREEN [facility] Start: 11-12-2024 End: 11-12-2024 Patient encounter procedure 11/12/2024 11:00 AM EDT Office Visit Otolaryngology [address] [place] [address] Tabatha Humphrey MD [address] [place] [address] POST OP Otolaryngology Comment on above: POST OP Start: 11-03-2024 End: 11-03-2024 ambulatory 11/03/2024 10:45 AM EDT Infusion Center Hematology/Oncology [address] [place] [address] Wstr, Injection Ryne [facility] [address] [place] [address] QMO?ARANESP/LAB&OV EARLY* Hematology/Oncology Comment on above: QMO?ARANESP/LAB&OV EARLY* Start: 11-03-2024 End: 11-03-2024 ambulatory [facility] Comment on above: (SO)CBC/BMP(S)* 3 MO OV/LAB EARLY/IN J TODAY* NIMA Start: 11-03-2024 End: 11-03-2024 Admission to same day surgery center [facility] Comment on above: DEBRIDEMENT BONE W/ EPIDERMIS/DERMIS/ MO BCUTANEOUS TISSUE/ MUSCLE/FASCIA FIRST 20 SQ CM OR LESS Start: 11-03-2024 End: 11-03-2024 Anesthesia consultation 11/03/2024 8:30 AM EDT Anesthesia Event [facility] [address] [place] [address] Israel Menon DO [address] [address] [facility] Start: 11-03-2024 End: 11-03-2024 Debridement bone muscle &/fascia 20 sq cm/< DEBRIDEMENT BONE W/ EPIDERMIS/DERMIS/ SUBCUTANEOUS TISSUE/ MUSCLE/FASCIA FIRST 20 SQ CM OR LESS Open wound of scalp, unspecified open wound type, initial encounter Wound dehiscence 11/03/2024 8:30 AM EDT [facility] Start: 11-03-2024 End: 11-03-2024 Sub grft f/s/n/h/f/g/m/d <100sq cm 1st 25 sq cm APPLICATION OF SKIN SUBSTITUTE GRAFT TO FACE EYELIDS EARS ORBITS TOTAL WOUND SURFACE AREA UP TO 100 SQ CM FIRST 25 SQ CM OR LESS WOUND SURFACE AREA Open wound of scalp, unspecified open wound type, initial encounter Wound dehiscence 11/03/2024 8:30 AM EDT [facility] Start: 11-03-2024 Subsequent hospital visit by physician 11/03/2024 8:30 AM EDT Hospital Encounter [facility] [address] [place] [address] Linden Mcguire MD [address] [place] [address] Open wound of scalp, unspecified open wound type, initial encounter [S01.00XA], Wound dehiscence [T81.30XA] [facility] Comment on above: Open wound of scalp, unspecified open wo und type, initial encounter [S01.00XA], Wound dehiscence [T81.30XA] Start: 11-02-2024 End: 11-02-2024 ambulatory [facility] Comment on above: (SO)CBC/BMP(S)* 3 MO OV/LAB EARLY/IN J TODAY* ABRAMOVICH r/s from 11/03 QMO?ARANESP/LAB&OV E DARREN* Start: 10-29-2024 End: 10-29-2024 Patient encounter procedure 10/29/2024 10:45 AM EDT Appointment Radiology [address] [place] [id number] Pre-op evaluation [Z01.818] Radiology Comment on above: Pre-op evaluation [Z01.818] Start: 10-28-2024 End: 10-28-2024 Anesthesia consultation 10/28/2024 9:10 AM EDT PAT Pre Anesthesia [address] [place] [id number] 2, Pacc [place] [address] [place] [address] PAC Pre Anesthesia Comment on above: PACC Start: 10-27-2024 End: 10-27-2024 Patient encounter procedure General Surgery Comment on above: Follow up US and labs FU: US and labs done 10/22/24. [facility] Start: 10-22-2024 End: 01-21-2025 Bacteria identified in Blood by Culture BACTERIAL CULTURE, BLOOD Microbiology Routine Streptococcal infection Expected: 10/22/2024, Expires: 01/21/2025 [facility] Work Phone: Comment on above: Expected: 10/22/2024, Expires: Start: 10-22-2024 End: 10-22-2024 Patient encounter procedure [facility] [place] Comment on above: follow up [facility] bacterial blood infection TCM Sepsis [facility] Start: 10-22-2024 End: 10-22-2024 Patient encounter procedure Radiology Comment on above: Cholangitis (HCC) [K83.09]; Sepsis with acute organ dysfunction and septic shock, due to unspecified organism, unspecified organ dysfunction type (HCC) [A41.9, R65.21 Spoke with pt, confi rmed appt and prep. jk Start: 10-22-2024 End: 10-22-2024 ambulatory 10/22/2024 11:00 AM EDT Results Only [facility] [address] [place] [address] lab [facility] Comment on above: lab Start: 10-19-2024 Patient discharge [facility] Start: 10-18-2024 Hepatic function panel [facility] Start: 10-18-2024 Serum inorganic phosphate measurement [facility] Start: 10-17-2024 Hepatic function panel [facility] Start: 10-17-2024 Serum inorganic phosphate measurement [facility] Start: 10-16-2024 Hepatic function panel [facility] Start: 10-16-2024 Serum inorganic phosphate measurement [facility] Start: 10-15-2024 Wound care [facility] Start: 10-15-2024 Bacteria identified in Blood by Culture Blood Culture [facility] Start: 10-15-2024 Bacteria identified in Urine by Culture Urine Culture [facility] Start: 10-15-2024 Respiratory Panel (PCR) Respiratory Panel (PCR) [facility] Start: 10-15-2024 Following clinical pathway protocol [facility] Start: 10-15-2024 Aspiration precautions [facility] Start: 10-15-2024 Assessment of risk of venous thromboembolism [facility] Start: 10-15-2024 Bacteria identified in Sputum by Culture [facility] Start: 10-15-2024 Consultation [facility] Start: 10-15-2024 Continuous pulse oximetry [facility] Start: 10-15-2024 Elevation of head of bed [facility] Start: 10-15-2024 Fall prevention [facility] Start: 10-15-2024 Incentive spirometry [facility] Start: 10-15-2024 Inhalation therapy procedure [facility] Start: 10-15-2024 Insertion of catheter into peripheral vein [facility] Start: 10-15-2024 Introduction of urinary catheter [facility] Start: 10-15-2024 Measuring intake and output [facility] Start: 10-15-2024 Methicillin resistant Staphylococcus aureus screening test [facility] Start: 10-15-2024 Oxygen therapy [facility] Start: 10-15-2024 Patient referral to dietitian [facility] Start: 10-15-2024 Peripherally inserted central catheter care [facility] Start: 10-15-2024 Providing care according to standard [facility] Start: 10-15-2024 Provision of activity privileges [facility] Start: 10-15-2024 Referral to occupational therapist [facility] Start: 10-15-2024 Referral to service [facility] Start: 10-15-2024 Taking nasal swab [facility] Start: 10-15-2024 Vital signs measurements [facility] Start: 10-15-2024 End: 10-15-2024 [facility] Start: 10-15-2024 End: 10-15-2024 Patient encounter procedure 10/15/2024 9:20 AM EDT Office Visit Dermatology [address] [place] [address] Jose Gonzalez, UI ARCHITECT.REPRINT SORTER [address] [place] [address] FBSE/Dr. Dejesus resched Dermatology Comment on above: FBSCora/Dr. Oleg garcia Start: 10-15-2024 Verification routine [facility] Start: 10-15-2024 Admission procedure [facility] Start: 10-15-2024 [facility] Start: 10-15-2024 Serum inorganic phosphate measurement [facility] Start: 10-14-2024 End: 01-13-2025 CBC W Auto Differential panel - Blood COMPLETE BLOOD COUNT AND DIFFERENTIAL Lab Routine Cholangitis (HCC) Sepsis with acute organ dysfunction and septic shock, due to unspecified organism, unspecified organ dysfunction type (HCC) Expected: 10/14/2024, Expires: 01/13/2025 [facility] Work Phone: Comment on above: Expected: 10/14/2024, Expires: Start: 10-14-2024 End: 01-13-2025 Comprehensive metabolic 2000 panel - Serum or Plasma COMPREHENSIVE METABOLIC PANEL Lab Routine Cholangitis (HCC) Sepsis with acute organ dysfunction and septic shock, due to unspecified organism, unspecified organ dysfunction type (HCC) Expected: 10/14/2024, Expires: 01/13/2025 [facility] Comment on above: Expected: 10/14/2024, Expires: Start: 10-13-2024 End: 10-13-2024 Patient encounter procedure General Surgery Comment on above: Cholangitis (HCC) [K83.09] Cholangitis (HCC) [K 83.09] [facility] Start: 10-12-2024 End: 10-12-2024 Patient encounter procedure 10/12/2024 10:00 AM EDT Office Visit Otolaryngology [address] [place] [id number] Linden Mcguire MD [address] [place] [address] new patient- referral from Dr. Rachel Burkett Otolaryngology Comment on above: new patient- referral from Dr. Rachel harrington Start: 10-06-2024 End: 10-06-2024 ambulatory [facility] Comment on above: (SO)CBC/BMP(S)* QMO?ARANESP/QMO XGEV A/LAB EARLY* Start: 10-05-2024 End: 10-05-2024 ambulatory [facility] Comment on above: (SO)CBC/BMP(S)* QMO?ARANESP/LAB BAM Y* Start: 10-01-2024 End: 10-01-2024 Nursing evaluation of patient and report 10/01/2024 9:20 AM EDT Nurse Visit Dermatology [address] [place] [address] Nurse, Derm Surgery [address] [place] [address] wound check/surgeon to see Dermatology Comment on above: wound check/surgeon to see Start: 09-30-2024 End: 09-30-2024 ambulatory 09/30/2024 3:20 PM EDT Visit (SP) Office Hematology/Oncology [address] [place] [address] Dereje Villarreal MD [address] [place] [address] OV/PER TE 09/23* Hematology/Oncology Comment on above: OV/PER TE 09/23* Start: 09-30-2024 End: 09-30-2024 Patient encounter procedure Dermatology Comment on above: fbsc per surgery FBSE Start: 09-22-2024 Patient discharge [facility] Start: 09-21-2024 Referral to general surgeon [facility] Start: 09-20-2024 Blood culture Blood Culture [facility] Start: 09-20-2024 Wound care [facility] Start: 09-20-2024 Referral to occupational therapist [facility] Start: 09-20-2024 Referral to service [facility] Start: 09-20-2024 [facility] Start: 09-20-2024 Administration of blood product [facility] Start: 09-18-2024 Chemotherapy care management [facility] Start: 09-18-2024 Following clinical pathway protocol [facility] Start: 09-18-2024 Transfusion of blood product [facility] Start: 09-18-2024 Assessment of risk of venous thromboembolism [facility] Start: 09-18-2024 Consultation for treatment [facility] Start: 09-18-2024 Continuous pulse oximetry [facility] Start: 09-18-2024 Insertion of catheter into peripheral vein [facility] Start: 09-18-2024 Measuring intake and output [facility] Start: 09-18-2024 Providing care according to standard [facility] Start: 09-18-2024 Vital signs measurements [facility] Start: 09-18-2024 [facility] Start: 09-18-2024 Verification routine [facility] Start: 09-18-2024 Admission procedure [facility] Start: 09-18-2024 [facility] Start: 09-18-2024 Bacteria identified in Blood by Culture Blood Culture [facility] Start: 09-18-2024 Bacteria identified in Urine by Culture Urine Culture [facility] Start: 09-18-2024 Blood culture Blood Culture [facility] Start: 09-18-2024 End: 09-18-2024 [facility] Start: 09-18-2024 Patient referral to dietitian [facility] Start: 09-15-2024 End: 09-15-2024 Nursing evaluation of patient and report 09/15/2024 9:40 AM EDT Nurse Visit Dermatology [address] [place] [address] Nurse, Derm Surgery [address] [facility] [place] [address] wound check/DA to see Dermatology Comment on above: wound check/DA to see Start: 09-09-2024 End: 09-09-2024 ambulatory 09/09/2024 9:45 AM EDT Infusion Center Hematology/Oncology [address] [place], [place] [phone] Wstr, Injection Ryne c [address] [place] [address] HERMILO* Hematology/Oncology Comment on above: HERMILO* Start: 09-08-2024 End: 12-08-2024 Cobalamin (Vitamin B12) [Mass/volume] in Serum or Plasma VITAMIN B12 Lab Routine 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) Expected: 09/08/2024, Expires: 12/08/2024 [facility] Work Phone: Comment on above: Expected: 09/08/2024, Expires: Start: 09-08-2024 End: 12-08-2024 Folate [Mass/volume] in Serum or Plasma FOLATE, SERUM Lab Routine 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) Expected: 09/08/2024, Expires: 12/08/2024 [facility] Comment on above: Expected: 09/08/2024, Expires: Start: 09-08-2024 End: 12-08-2024 RETICULOCYTE COUNT RETICULOCYTE COUNT Lab Routine 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) Expected: 09/08/2024, Expires: 12/08/2024 [facility] Comment on above: Expected: 09/08/2024, Expires: Start: 09-08-2024 End: 09-08-2024 ambulatory [facility] Comment on above: (SO)CBC/BMP(S)* QMO?ARANESP/QMO XGEV A/LAB EARLY/MDCR* QMO?ARANESP/QMO XGEV A/LAB EARLY* QMO?ARANESP/LAB BAM Y* OV/LAB&INJ EARLY* Start: 08-26-2024 End: 08-26-2024 Patient encounter procedure 08/26/2024 9:40 AM EDT Office Visit Cardiology [address] [place] [address] ECHO Cardiology Comment on above: ECHO Start: 08-24-2024 DIABETES SCREEN DIABETES SCREEN [facility] Start: 08-11-2024 End: 08-11-2024 ambulatory [facility] Comment on above: (SO)CBC/BMP(S)* 3 MO OV/LAB EARLY/IN J TODAY* QMO?ARANESP/QMO XGEV A/LAB&OV EARLY/MDCR* Start: 08-09-2024 End: 08-09-2024 Patient encounter procedure 08/09/2024 3:30 PM EDT Office Visit Cardiology [address] [address] Candace Guerra APRN.REPRINT SORTER [address] [place] [address] DX: SOB (shortness of breath) [R06.02]; Chest pain, unspecified type Cardiology Comment on above: DX: SOB (shortness of breath) [R06.02]; Chest pain, unspecified type Start: 07-14-2024 End: 07-14-2024 ambulatory [place] [facility] Comment on above: (SO)CBC/BMP(S)* QMO?ARANESP/QMO XGEV A/LAB EARLY/MDCR* Start: 07-09-2024 Covid-19 Vaccine () Covid-19 Vaccine () [facility] Start: 07-07-2024 End: 07-07-2024 Nursing evaluation of patient and report 07/07/2024 9:00 AM EDT Nurse Visit Dermatology [address] [place] [address] Nurse, Derm Surgery [address] [place] [address] suture removal Dermatology Comment on above: suture removal Start: 06-25-2024 End: 06-25-2024 Patient encounter procedure 06/25/2024 10:30 AM EDT Office Visit Cardiology [address] [address] Candace Guerra APRN.REPRINT SORTER [address] [place] [address] DX: SOB (shortness of breath) [R06.02]; Chest pain, unspecified type Cardiology Comment on above: DX: SOB (shortness of breath) [R06.02]; Chest pain, unspecified type Start: 06-24-2024 End: 06-24-2024 Patient encounter procedure 06/24/2024 9:30 AM EDT Office Visit Radiation Oncology [address] [place], [place] [address] Suresh Hodges MD [address] [place] [address] FULLER BRUSH MAN/SKIN 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 BRONSON/THIS DATE AND TIME PER PATIENT Radiation Oncology Comment on above: FULLER BRUSH MAN/SKIN 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 KIRTI SAUNDERS/THIS DATE AND TIME PER PATIENT Start: 06-18-2024 End: 06-18-2024 Patient encounter procedure 06/18/2024 8:45 AM EDT Office Visit Dermatology [address] [place] [address] Richie Dejesus MD [address] [place] [address] receck a couple of spots/possible bx Dermatology Comment on above: receck a couple of spots/possible bx Start: 06-17-2024 End: 06-17-2024 Patient encounter procedure Dermatology Comment on above: Mohs: Mohs: SCC right [place] n scalp, 2 pts Start: 06-16-2024 End: 06-16-2024 ambulatory [facility] Comment on above: (SO)CBC/BMP(S)* QMO?ARANESP/QMO XGEV A/LAB EARLY/MDCR* pt requested date Start: 06-16-2024 End: 06-16-2024 Patient encounter procedure 06/16/2024 8:45 AM EDT Office Visit Dermatology [address] [place] [address] Madelaine Bronson MD [address] [place] [address] Mohs: SCC right crown scalp, 4 pts Dermatology Comment on above: Mohs: SCC right crown scalp, 4 pts Start: 05-28-2024 DIABETES SCREEN DIABETES SCREEN [facility] Start: 05-12-2024 End: 05-12-2024 ambulatory [facility] Comment on above: (SO)CBC/BMP(S)* QMO?ARANESP/QMO XGEV A/LAB EARLY/MDCR* Start: 05-10-2024 End: 05-10-2024 Patient encounter procedure 05/10/2024 2:30 PM EST Office Visit Pain Management [address] [address] Bashir Mcmahon MD [address] [facility] [place] [address] Osteoarthritis of spine with radiculopathy, lumbar region [M47.26] Pain Management Comment on above: Osteoarthritis of spine with radiculopat hy, lumbar region [M47.26] Start: 04-28-2024 End: 04-28-2024 Patient encounter procedure 04/28/2024 9:00 AM EST Office Visit Pain Management [address] [address] Bashir Mcmahon MD [address] [facility] [place] [address] Osteoarthritis of spine with radiculopathy, lumbar region [M47.26] Pain Management Comment on above: Osteoarthritis of spine with radiculopat hy, lumbar region [M47.26] Start: 04-15-2024 End: 04-15-2024 Patient encounter procedure 04/15/2024 10:30 AM EST Office Visit Cardiology [address] [address] Candace Guerra APRN.REPRINT SORTER [address] [place] [address] 6 month follow up Cardiology Comment on above: 6 month follow up Start: 04-14-2024 End: 04-14-2024 ambulatory Smiley Armando [facility] Laboratory Comment on above: (SO)CBC/BMP(S)* QMO?ARANESP/QMO XGEV A/LAB EARLY/MDCR* Start: 04-07-2024 Advance Directive Discussion Advance Directive Discussion [facility] Start: 04-01-2024 End: 04-01-2024 ambulatory 04/01/2024 2:15 PM EST OT/PT/Speech [facility] [address] [place] [address] HallgrenGurwindera M, PT left hip [facility] Comment on above: left hip Start: 03-24-2024 End: 03-24-2024 ambulatory 03/24/2024 2:15 PM EST OT/PT/Speech Visit [facility] [address] [place] [address] Hallgren, Endy M, PT left hip pain [facility] Comment on above: left hip pain Start: 03-19-2024 End: 03-19-2024 ambulatory 03/19/2024 3:00 PM EST OT/PT/Speech Visit [facility] [address] [place] [address] Jasegren, Endy M, PT left hip pain [facility] Comment on above: left hip pain Start: 03-19-2024 End: 03-19-2024 Patient encounter procedure 03/19/2024 10:45 AM EST Office Visit Dermatology [address] [place] [place] [address] Richie Dejesus MD [address] [place] [address] Ak followo up Dermatology Comment on above: Ak followo up Start: 03-18-2024 End: 03-18-2024 ambulatory Hematology/Oncology Comment on above: Q6MO LUPRON/MDCR* (SO)CBC/BMP(S)* (SO)CBC/BMP(S)/QMO?A RANESP/QMO XGEVA/Q6MO LUPRON/MDCR* - this date per patient Start: 03-17-2024 End: 03-17-2024 ambulatory Smiley Armando [facility] Laboratory Comment on above: (SO)CBC/BMP(S)* (SO)CBC/BMP(S)/QMO?A RANESP/QMO XGEVA/Q6MO LUPRON/MDCR* - this date per patient QMO?ARANESP/QMO XGEV A/Q6MO LUPRON/LAB EARLY/MDCR* - this date per patient Start: 03-16-2024 End: 03-16-2024 ambulatory 03/16/2024 2:00 PM EST OT/PT/Speech Visit [facility] [address] [facility] [place] [address] 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 M, LIGHTER left hip pain [facility] Comment on above: left hip pain Start: 03-12-2024 End: 03-12-2024 ambulatory 03/12/2024 11:45 AM EST OT/PT/Speech Visit [facility] [address] [place] [place] [address] 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 M, LIGHTER left hip pain [facility] Comment on above: left hip pain Start: 03-10-2024 End: 03-10-2024 Patient encounter procedure 03/10/2024 9:00 AM EST Office Visit [facility] [address] [place] [address] PodlogarCatherine APRN.REPRINT SORTER [address] [facility] [place] [address] medicare wellness [facility] Comment on above: medicare wellness Start: 03-02-2024 End: 03-02-2024 ambulatory 03/02/2024 2:45 PM EST OT/PT/Speech Visit [facility] [address] [place] [place] [address] 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, LIGHTER left hip pain [facility] Comment on above: left hip pain Start: 02-27-2024 End: 02-27-2024 ambulatory 02/27/2024 11:45 AM EST OT/PT/Speech Visit [facility] [address] [place] [place] [address] 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 M, LIGHTER Left hip pain [facility] Comment on above: Left hip pain Start: 02-25-2024 End: 02-25-2024 ambulatory [facility] Comment on above: Left hip pain Left hip pain re- eval Start: 02-24-2024 End: 02-24-2024 Patient encounter procedure 02/24/2024 2:15 PM EST Office Visit Orthopaedics [address] [address] Vicente Roach MD [address] [place] [address] Left Hip Pain [facility] Comment on above: Left Hip Pain Start: 02-23-2024 End: 02-23-2024 Patient encounter procedure 02/23/2024 4:15 PM EST Office Visit Orthopaedics [address] [place] [address] Vicente Roach MD [address] [place] [address] Left Hip Pain [facility] Comment on above: Left Hip Pain Start: 02-20-2024 End: 02-20-2024 ambulatory 02/20/2024 11:45 AM EST OT/PT/Speech Visit [facility] [address] [place] [address] Jose David Cedeno M, LIGHTER Left hip pain [facility] Comment on above: Left hip pain Start: 02-18-2024 End: 02-18-2024 ambulatory 02/18/2024 1:15 PM EST OT/PT/Speech Visit [facility] Physical [facility] [address] [place] [address] 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, LIGHTER Left hip pain [facility] Comment on above: Left hip pain Start: 02-18-2024 End: 02-18-2024 ambulatory [facility] Comment on above: (SO)CBC/BMP(S)* (SO)CBC/BMP(S)/QMO?A RANESP/QMO XGEVA/MDCR* Start: 02-13-2024 End: 02-13-2024 ambulatory 02/13/2024 11:45 AM EST OT/PT/Speech Visit [facility] [address] [place] [address] 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, LIGHTER Left hip pain [facility] Physical [facility] Comment on above: Left hip pain Start: 02-11-2024 End: 02-11-2024 ambulatory [facility] Comment on above: (SO)CBC/BMP(S)* (SO)CBC/BMP(S)/QMO?A RANESP/QMO XGEVA/MDCR* Left hip pain Start: 02-03-2024 End: 02-03-2024 Patient encounter procedure 02/03/2024 10:00 AM EDT Office Visit Family [facility] [address] [place], [place] [id number] Arsalan Lilly MD [address] [place], [place] [id number] medicare wellness [facility] Comment on above: medicare wellness Start: 01-31-2024 RSV Vaccine (1 - 1-dose 60+ series) RSV Vaccine (1 - 1-dose 60+ series) [facility] Comment on above: Postponed from 2013 (Declined at t his time) Start: 01-29-2024 End: 01-29-2024 ambulatory 01/29/2024 9:30 AM EDT [facility] [address] [place] [address] Endy Curran, PT Left hip pain [M25.552] [facility] Comment on above: Left hip pain [M25.552] Start: 01-21-2024 End: 01-21-2024 ambulatory [facility] Comment on above: (SO)CBC/BMP(S)* (SO)CBC/BMP(S)/QMO?A RANESP/QMO XGEVA/MDCR* OV/LABS & INJECTION TODAY* Start: 01-14-2024 End: 01-14-2024 ambulatory [facility] Comment on above: (SO)CBC/BMP(S)* (SO)CBC/BMP(S)/QMO?A RANESP/QMO XGEVA/MDCR* Start: 12-17-2023 End: 12-17-2023 ambulatory [facility] Comment on above: (SO)CBC/BMP(S)* (SO)CBC/BMP(S)/QMO?A RANESP/QMO XGEVA/MDCR* Start: 12-10-2023 End: 12-10-2023 Patient encounter procedure Cat Scan Comment on above: 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, C79.51]; Abdominal pain, unspecified abdominal location [R10.9]; Acute left-sided low back pain, unspecified whether sciatica present [M54.50] Start: 12-07-2023 Covid-19 Vaccine () Covid-19 Vaccine () [facility] Start: 12-07-2023 Covid-19 Vaccine () Covid-19 Vaccine () [facility] Start: 12-07-2023 Influenza vaccination Influenza Vaccine (#1) [facility] Start: 12-02-2023 End: 12-02-2023 Patient encounter procedure 12/02/2023 9:30 AM EDT Office Visit Dermatology [address] [place] [address] Richie Dejesus MD [address] [place], [place] [id number] [facility] Comment on above: [facility] Start: 11-22-2023 End: 02-21-2024 HEMOGLOBIN EVALUATION [facility]ASCADE HEMOGLOBIN EVALUATION [facility]ASC[facility] Lab Routine 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) Expected: 11/22/2023, Expires: 02/21/2024 [facility] Comment on above: Expected: 11/22/2023, Expires: Start: 11-19-2023 End: 11-19-2023 [facility] Comment on above: (SO)CBC/BMP(S)* (SO)CBC/BMP(S)/QMO?A RANESP/QMO XGEVA/MDCR* Start: 08-07-2024 Subsequent hospital visit by physician 11/12/2023 9:45 AM EDT Hospital Encounter Cardiology Lab [address] [place] [address] SOB (shortness of breath) [R06.02] Cardiology Lab Comment on above: SOB (shortness of breath) [R06.02] Start: 11-12-2023 End: 11-12-2023 Patient encounter procedure 11/12/2023 8:45 AM EDT Appointment Molecular Imaging [address] [place] [id number] EPIC ORDER [facility] Comment on above: EPIC ORDER Start: 10-22-2023 End: 10-21-2024 Cobalamin (Vitamin B12) [Mass/volume] in Serum or Plasma VITAMIN B12 Lab Routine 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) Expected: 10/22/2023, Expires: 10/21/2024 [facility] Comment on above: Expected: 10/22/2023, Expires: Start: 10-22-2023 End: 10-21-2024 Ferritin [Mass/volume] in Serum or Plasma FERRITIN Lab Routine 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) Expected: 10/22/2023, Expires: 10/21/2024 [facility] Comment on above: Expected: 10/22/2023, Expires: Start: 10-22-2023 End: 10-21-2024 Iron and Iron binding capacity panel - Serum or Plasma IRON AND TIBC Lab Routine 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) Expected: 10/22/2023 (Approximate), Expires: 10/21/2024 [facility] Comment on above: Expected: 10/22/2023 (Approximate), Expi res: 10/21/2024 Start: 10-22-2023 End: 10-22-2023 ambulatory [facility] Comment on above: (SO)CBC/BMP(S)* (SO)CBC/BMP(S)/QMO?A RANESP/QMO XGEVA/MDCR* 7 MO OVLAB EARLY/INJ ECTINS TODAY* 7 MO OV/LAB EARLY/IN J TODAY* 7 MO OV/LAB 10/19/INJ TODAY* Start: 10-20-2023 End: 10-20-2023 ambulatory 10/20/2023 8:00 AM EDT Results Only [place] [facility] [address] [place] [address] (SO)CBC/BMP(S)/PSA* [facility] Comment on above: (SO)CBC/BMP(S)/PSA* Start: 10-16-2023 End: 10-16-2023 Patient encounter procedure 10/16/2023 2:20 PM EDT Office Visit Cardiology [address], [place] [phone] Dorcsa Romero, [address] [place], [place] [phone] SOB (shortness of breath) [R06.02]; Chest pain, unspecified type [R07.9] Cardiology Comment on above: SOB (shortness of breath) [R06.02]; Ches t pain, unspecified type [R07.9] Start: 10-13-2023 Lipid 1996 panel - Serum or Plasma Lipid Screening [facility] Start: 10-13-2023 LIPID SCREEN LIPID SCREEN [facility] Start: 10-02-2023 End: 10-02-2023 ambulatory 10/02/2023 8:45 AM EDT [facility] Hematology/Oncology [address] [place] [address] Wstr, Injection Ryne [facility] [address] [place] [address] Q6MO LUPRON/MDCR* Hematology/Oncology Comment on above: Q6MO LUPRON/MDCR* Start: 09-24-2023 End: 09-24-2023 ambulatory [facility] Comment on above: (SO)CBC/BMP(S)* (SO)CBC/BMP(S)/QMO?A RANESP/QMO XGEVA/MDCR* Start: 09-10-2023 End: 09-10-2023 Patient encounter procedure 09/10/2023 9:20 AM EDT Office Visit Cardiology [address] [address] Juanito Mcfarlane MD [address] [place] [address] SOB (shortness of breath) [R06.02]; Chest pain, unspecified type [R07.9] Cardiology Comment on above: SOB (shortness of breath) [R06.02]; Ches t pain, unspecified type [R07.9] Start: 08-27-2023 End: 08-27-2023 ambulatory [facility] Comment on above: (SO)CBC/BMP(S)* (SO)CBC/BMP(S)/QMO?A RANESP/QMO XGEVA/MDCR* Start: 07-31-2023 End: 07-31-2023 ambulatory [facility] Comment on above: (SO)CBC/BMP(S)* (SO)CBC/BMP(S)/QMO?A RANESP/QMO XGEVA/MDCR* Start: 05-19-2023 Covid-19 Vaccine () Covid-19 Vaccine () [facility] Start: 04-07-2023 Advance Directive Discussion Advance Directive Discussion [facility] Start: 04-07-2023 Behavioral Health Screening Behavioral Health Screening [facility] Start: 04-07-2023 Depression Assessment Depression Assessment [facility] Start: 03-18-2023 End: 06-17-2023 Comprehensive metabolic 2000 panel - Serum or Plasma COMP METABOLIC PANEL Lab Routine Hyperlipidemia, mixed Expected: 03/18/2023, Expires: 06/17/2023 [facility] Work Phone: Comment on above: Expected: 03/18/2023, Expires: 4 Start: 03-18-2023 End: 06-17-2023 LIPID PANEL, NONFASTING LIPID PANEL, NONFASTING Lab Routine Hyperlipidemia, mixed Expected: 03/18/2023, Expires: 06/17/2023 [facility] Work Phone: Comment on above: Expected: 03/18/2023, Expires: 4 Start: 03-13-2023 Covid-19 Vaccine ( season) Covid-19 Vaccine ( season) [facility] Start: 03-11-2023 Covid-19 Vaccine ( season) Covid-19 Vaccine ( season) [facility] Start: 12-06-2022 Covid-19 Vaccine ( season) Covid-19 Vaccine () [facility] Start: 12-06-2022 Influenza vaccination [facility] Start: 11-13-2022 COVID-19 VACCINE (4 - Booster for Moderna series) COVID-19 VACCINE (4 - Booster for Moderna series) [facility] Comment on above: Postponed from 05/17/2021 (Declined at t his time) Start: 08-26-2022 Adult depression screening assessment DEPRESSION SCREENING [facility] Start: 04-07-2022 ADVANCE DIRECTIVE DISCUSSION ADVANCE DIRECTIVE DISCUSSION [facility] Start: 04-07-2022 DEPRESSION ASSESSMENT DEPRESSION ASSESSMENT [facility] Start: 03-11-2022 Adult depression screening assessment DEPRESSION SCREENING [facility] Start: 02-10-2022 Colonoscopy COLONOSCOPY [facility] Start: 02-10-2022 COLORECTAL CANCER SCREENING COLORECTAL CANCER SCREENING [facility] Start: 01-17-2022 COVID-19 VACCINE (5 - Booster for Moderna series) COVID-19 VACCINE (5 - Booster for Moderna series) [facility] Start: 01-17-2022 COVID-19 VACCINE (5 - Moderna series) COVID-19 VACCINE (5 - Moderna series) [facility] Start: 12-06-2021 Influenza vaccination INFLUENZA (#1) [facility] Start: 05-25-2021 COVID-19 VACCINE (4 - Booster for Moderna series) COVID-19 VACCINE (4 - Booster for Moderna series) [facility] Start: 04-07-2021 ADVANCE DIRECTIVE DISCUSSION ADVANCE DIRECTIVE DISCUSSION [facility] Start: 04-07-2021 DEPRESSION ASSESSMENT DEPRESSION ASSESSMENT [facility] Start: 01-10-2021 PNEUMOVAX AGE 65 AND OVER WITH 5YR LOOKBACK (#1) PNEUMOVAX AGE 65 AND OVER WITH 5YR LOOKBACK (#1) [facility] Start: 02-03-2020 FECAL OCCULT BLOOD FECAL OCCULT BLOOD [facility] Start: 02-03-2020 Screening for malignant neoplasm of colon Fecal Occult Blood [facility] Start: 2018 Abdominal aortic aneurysm screening ABDOMINAL AORTIC ANEURYSM HIGH RISK SCREEN [facility] Start: 2018 Pneumococcal vaccination PNEUMOCOCCAL VACCINE SERIES (1 - PCV) [facility] Start: 2013 RSV Vaccine (1 - 1-dose 60+ series) RSV Vaccine (1 - 1-dose 60+ series) [facility] Start: 2003 Prostate specific antigen measurement PROSTATE CANCER SCREENING DISCUSSION [facility] Start: 2003 Zoster vaccine hzv live for subcutaneous use ZOSTER (SHINGLES) VACCINE (1 of 2) [facility] Start: 1998 COLOGUARD (FIT-DNA) COLOGUARD (FIT-DNA) [facility] Start: 1998 Colonoscopy COLORECTAL CANCER SCREENING DISCUSSION [facility] Start: [address] COLONOGRAPHY [facility] Start: 1998 Screening for malignant neoplasm of colon [facility] Start: 1998 SIGMOIDOSCOPY SIGMOIDOSCOPY [facility] Start: 1993 Fasting lipid profile LIPID SCREENING [facility] Start: 1972 Third diphtheria, tetanus and acellular pertussis (DTaP) vaccination TDAP (ADULT) [facility] Start: 1971 Anxiety Screening Anxiety Screening [facility] Start: 1971 Depression Screening Depression Screening [facility] Start: [address] [facility] Start: 1958 COVID-19 VACCINE (#1) COVID-19 VACCINE (#1) [facility] Start: 1953 Hepatitis C antibody, confirmatory test HEPATITIS C VIRUS SCREENING [facility] Alanine aminotransfe rase [Enzymatic activity/volume] in Serum or Plasma [facility] Alanine aminotransfe rase [Enzymatic activity/volume] in Serum or Plasma [facility] Alanine aminotransfe rase [Enzymatic activity/volume] in Serum or Plasma [facility] Albumin [Mass/volume ] in Serum or Plasma [facility] Albumin [Mass/volume ] in Serum or Plasma [facility] Albumin [Mass/volume ] in Serum or Plasma [facility] Alkaline phosphatase [Enzymatic activity/volume] in Serum or Plasma [facility] Alkaline phosphatase [Enzymatic activity/volume] in Serum or Plasma [facility] Alkaline phosphatase [Enzymatic activity/volume] in Serum or Plasma [facility] Anion gap in Serum o r Plasma [facility] Anion gap in Serum o r Plasma [facility] Anion gap in Serum o r Plasma [facility] Anion gap in Serum o r Plasma [facility] Bilirubin, total measurement [facility] Bilirubin, total measurement [facility] Bilirubin, total measurement [facility] Bilirubin.direct [Mass/volume] in Serum or Plasma [facility] Bilirubin.direct [Mass/volume] in Serum or Plasma [facility] Bilirubin.direct [Mass/volume] in Serum or Plasma [facility] BUN/Creatinine ratio [facility] BUN/Creatinine ratio [facility] BUN/Creatinine ratio [facility] BUN/Creatinine ratio [facility] Calcium [Mass/volume ] in Serum or Plasma [facility] Calcium [Mass/volume ] in Serum or Plasma [facility] Calcium [Mass/volume ] in Serum or Plasma [facility] Calcium [Mass/volume ] in Serum or Plasma [facility] Carbon dioxide, tota l [Moles/volume] in Central venous blood [facility] Carbon dioxide, tota l [Moles/volume] in Central venous blood [facility] Carbon dioxide, tota l [Moles/volume] in Central venous blood [facility] Carbon dioxide, tota l [Moles/volume] in Central venous blood [facility] End: 10-21-2024 CBC W Auto Differential panel - Blood COMPLETE BLOOD COUNT AND DIFFERENTIAL Lab Routine 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) Every 3 months for 4 Occurrences starting 10/22/2023 until 10/21/2024 [facility] Comment on above: Every 3 months for 4 Occurrences startin g 10/22/2023 until 10/21/2024 Cortisol [Mass/volum e] in Serum or Plasma [facility] Creatinine [Mass/vol ume] in Serum or Plasma [facility] Creatinine [Mass/vol ume] in Serum or Plasma [facility] Creatinine [Mass/vol ume] in Serum or Plasma [facility] Creatinine [Mass/vol ume] in Serum or Plasma [facility] End: 01-03-2025 CT Abdomen and Pelvis WO contrast CT ABD/PEL WO IVCON Radiology STAT Prostate cancer metastatic to bone (HCC) Abdominal pain, unspecified abdominal location Acute left-sided low back pain, unspecified whether sciatica present 1 Occurrences starting 12/05/2023 until 01/03/2025 [facility] Work Phone: Comment on above: 1 Occurrences starting 12/05/2023 until 01/03/2025 End: 01-03-2025 CT Lumbar spine W contrast IV CT LUMBAR SPINE W IVCON Radiology STAT Prostate cancer metastatic to bone (HCC) Abdominal pain, unspecified abdominal location Acute left-sided low back pain, unspecified whether sciatica present 1 Occurrences starting 12/05/2023 until 01/03/2025 [facility] Comment on above: 1 Occurrences starting 12/05/2023 until 01/03/2025 Debridement bone mus turner &/fascia 20 sq cm/< DEBRIDEMENT BONE W/ EPIDERMIS/DERMIS/ SUBCUTANEOUS TISSUE/ MUSCLE/FASCIA FIRST 20 SQ CM OR LESS Open wound of scalp, unspecified open wound type, initial encounter Wound dehiscence [facility] OR ECG COMPLETE ECG COMPLETE ECG Routine SOB (shortness of breath) Chest pain, unspecified type Ordered: 06/11/2023 [facility] Work Phone: Comment on above: Ordered: 06/11/2023 End: 06-10-2024 Echocardiography ECHO Cardiology Routine SOB (shortness of breath) Chest pain, unspecified type 1 Occurrences starting 06/11/2023 until 06/10/2024 [facility] Work Phone: Comment on above: 1 Occurrences starting 06/11/2023 until 06/10/2024 End: 08-09-2025 Echocardiography ECHO Cardiology Routine SOB (shortness of breath) 1 Occurrences starting 08/09/2024 until 08/09/2025 [facility] Work Phone: Comment on above: 1 Occurrences starting 08/09/2024 until 08/09/2025 Erythrocyte mean corpuscular volume determination [facility] Erythrocyte mean corpuscular volume determination [facility] Erythrocyte mean corpuscular volume determination [facility] Erythrocyte mean corpuscular volume determination [facility] End: 06-10-2024 EXERCISE STRESS ECG (WITHOUT IMAGING) EXERCISE STRESS ECG (WITHOUT IMAGING) Cardiology ANAMARIA SOB (shortness of breath) Chest pain, unspecified type 1 Occurrences starting 06/11/2023 until 06/10/2024 [facility] Work Phone: Comment on above: 1 Occurrences starting 06/11/2023 until 06/10/2024 Fth/gft free w/direc t closure s/a/l 20 cm/< GRAFT SKIN FULL THICKNESS FREE, INCL DIRECT CLOSURE DONOR SITE, SCALP, 20 SQ CM OR LESS Open wound of scalp, unspecified open wound type, initial encounter Personal history of malignant neoplasm of skin [facility] OR Glucose [Mass/volume ] in Serum or Plasma [facility] Glucose [Mass/volume ] in Serum or Plasma [facility] Glucose [Mass/volume ] in Serum or Plasma [facility] Glucose [Mass/volume ] in Serum or Plasma [facility] Hematocrit [Volume Fraction] of Blood [facility] Hematocrit [Volume Fraction] of Blood [facility] Hematocrit [Volume Fraction] of Blood [facility] Hematocrit [Volume Fraction] of Blood [facility] Hemoglobin [Mass/vol ume] in Blood [facility] Hemoglobin [Mass/vol ume] in Blood [facility] Hemoglobin [Mass/vol ume] in Blood [facility] Hemoglobin [Mass/vol ume] in Blood [facility] Leukocytes [#/volume ] in Blood [facility] Leukocytes [#/volume ] in Blood [facility] Leukocytes [#/volume ] in Blood [facility] Leukocytes [#/volume ] in Blood [facility] Magnesium measurement [facility] Magnesium measurement [facility] Magnesium measurement [facility] Magnesium measurement [facility] Mean corpuscular hemoglobin concentration determination [facility] Mean corpuscular hemoglobin concentration determination [facility] Mean corpuscular hemoglobin concentration determination [facility] Mean corpuscular hemoglobin concentration determination [facility] Mean corpuscular hemoglobin determination [facility] Mean corpuscular hemoglobin determination [facility] Mean corpuscular hemoglobin determination [facility] Mean corpuscular hemoglobin determination [facility] Measurement of renal function [facility] Measurement of renal function [facility] Measurement of renal function [facility] Measurement of renal function [facility] Methicillin resistan t Staphylococcus aureus (MRSA) DNA [Presence] in Nose by IMAN with probe detection [facility] End: 11-20-2025 MR Brain WO and W contrast IV MRI BRAIN WO/W IVCON Radiology Routine SCC (squamous cell carcinoma), scalp/neck 1 Occurrences starting 11/30/2024 until 11/20/2025 [facility] Work Phone: Comment on above: 1 Occurrences starting 11/30/2024 until 11/20/2025 Neutrophil count [facility] Neutrophil count [facility] Neutrophil count [facility] Neutrophil count [facility] Neutrophil percent differential count [facility] Neutrophil percent differential count [facility] Neutrophil percent differential count [facility] Neutrophil percent differential count [facility] End: 11-14-2024 NM Heart Perfusion W multiple states of exercise NM CARDIAC PERF STRESS/EXERCISE Radiology Routine SOB (shortness of breath) Abnormal ECG Chest pain, unspecified type Mixed hyperlipidemia 1 Occurrences starting 10/16/2023 until 11/14/2024 [facility] Work Phone: Comment on above: 1 Occurrences starting 10/16/2023 until 11/14/2024 Patient referral [facility] Work Phone: Platelets [#/volume] in Blood [facility] Platelets [#/volume] in Blood [facility] Platelets [#/volume] in Blood [facility] Platelets [#/volume] in Blood [facility] Potassium measurement [facility] Potassium measurement [facility] Potassium measurement [facility] Potassium measurement [facility] End: 07-30-2024 Prostate specific Ag [Mass/volume] in Serum or Plasma PROSTATE-SPECIFIC ANTIGEN DIAGNOSTIC Lab Routine Prostate cancer (HCC) Every 3 months for 4 Occurrences starting 07/31/2023 until 07/30/2024 [facility] Work Phone: Comment on above: Every 3 months for 4 Occurrences startin g 07/31/2023 until 07/30/2024 End: 10-21-2024 Prostate specific Ag [Mass/volume] in Serum or Plasma PROSTATE-SPECIFIC ANTIGEN DIAGNOSTIC Lab Routine Prostate cancer metastatic to bone (HCC) Every 3 months for 4 Occurrences starting 10/22/2023 until 10/21/2024 [facility] Work Phone: Comment on above: Every 3 months for 4 Occurrences startin g 10/22/2023 until 10/21/2024 Red blood cell count [facility] Red blood cell count [facility] Red blood cell count [facility] Red blood cell count [facility] Red cell distributio n width determination [facility] Red cell distributio n width determination [facility] Red cell distributio n width determination [facility] Red cell distributio n width determination [facility] Respiratory pathogen s DNA and RNA panel - Respiratory specimen by IMAN with probe detection [facility] Serum chloride measurement [facility] Serum chloride measurement [facility] Serum chloride measurement [facility] Serum chloride measurement [facility] Sodium measurement [facility] Sodium measurement [facility] Sodium measurement [facility] Sodium measurement [facility] Sub grft f/s/n/h/f/g /m/d <100sq cm 1st 25 sq cm APPLICATION OF SKIN SUBSTITUTE GRAFT TO FACE EYELIDS EARS ORBITS TOTAL WOUND SURFACE AREA UP TO 100 SQ CM FIRST 25 SQ CM OR LESS WOUND SURFACE AREA Open wound of scalp, unspecified open wound type, initial encounter Wound dehiscence [facility] OR SURGICAL PATHOLOGY SURGICAL PATH OLOGY Lab Routine Skin neoplasm 05/04/2024 12:50 PM EST [facility] Work Phone: Tissue Pathology bio psy report SURGICAL PATHOLOGY Lab Routine Squamous cell carcinoma of scalp 06/17/2024 10:36 AM EDT [facility] Work Phone: Total protein measurement [facility] Total protein measurement [facility] Total protein measurement [facility] Troponin T.cardiac [Mass/volume] in Serum or Plasma by High sensitivity method [facility] Urea nitrogen [Mass/volume] in Serum or Plasma [facility] Urea nitrogen [Mass/volume] in Serum or Plasma [facility] Urea nitrogen [Mass/volume] in Serum or Plasma [facility] Urea nitrogen [Mass/volume] in Serum or Plasma [facility] Urine culture [facility] Urine culture [facility] End: 11-13-2025 US Abdomen RUQ US ABD RIGHT UPPER QUADRANT Radiology Routine Cholangitis (HCC) Sepsis with acute organ dysfunction and septic shock, due to unspecified organism, unspecified organ dysfunction type (HCC) 1 Occurrences starting 10/14/2024 until 11/13/2025 [facility] Comment on above: 1 Occurrences starting 10/14/2024 until 11/13/2025 US Abdomen RUQ US ABD RIGHT UPP ER QUADRANT Radiology Routine Cholangitis (HCC) Sepsis with acute organ dysfunction and septic shock, due to unspecified organism, unspecified organ dysfunction type (HCC) 10/22/2024 11:54 AM EDT [facility] End: 10-22-2024 Us abdominal real time w/image limited [facility] Work Phone: Comment on above: ONCE for 1 Occurrences starting 10/23/19 until 10/22/2024 End: 11-27-2025 US Carotid arteries - bilateral US CAROTID BILATERAL Radiology Routine Pre-op evaluation Bruit of right carotid artery 1 Occurrences starting 10/28/2024 until 11/27/2025 [facility] Work Phone: Comment on above: 1 Occurrences starting 10/28/2024 until 11/27/2025 US Carotid arteries - bilateral US CAROTID BILATERAL Radiology Routine Pre-op evaluation Bruit of right carotid artery 10/29/2024 12:46 PM EDT [facility] Work Phone: End: 01-22-2025 XR Pelvis and Hip - left AP and Lateral frog XR HIP GENERAL 3V PELV/AP/LAT LEFT Radiology Routine Left hip pain 1 Occurrences starting 12/24/2023 until 01/22/2025 [facility] Work Phone: Comment on above: 1 Occurrences starting 12/24/2023 until 01/22/2025 XR Pelvis and Hip - left AP and Lateral frog XR HIP GENERAL 3V PELV/AP/LAT LEFT Radiology Routine Left hip pain 12/24/2023 12:18 PM EDT [facility] Immunizations Immunization [facility] Immunization Notes Care Provider [facility] 04-23-2024 respiratory syncytia l virus (RSV) vaccine, adjuvanted (AREXVY) Richie Dejesus MD Work Phone: [facility] 01-09-2024 influenza, high dose seasonal, preservative-free Arsalan Lilly MD Work Phone: [facility] 01-09-2024 influenza virus vaccine, unspecified formulation Dereje Villarreal MD Work Phone: [facility] 03-19-2023 respiratory syncytia l virus (RSV) vaccine, adjuvanted (AREXVY) Injection Ws Work Phone: [facility] 01-16-2023 COVID-19 vaccine, ag e 12+ yr (MODERNA) Arsalan Lilly MD Work Phone: [facility] 01-14-2023 COVID-19 original vaccine, full dose, monovalent (MODERNA) Arsalan Lilly MD Work Phone: [facility] 12-25-2022 influenza (aIIV4) vaccine, age 65+ yr, quadrivalent, PF (FLUAD QUAD) Arsalan Lilly MD Work Phone: [facility] 12-25-2022 influenza virus vaccine, unspecified formulation Dorcas Romero DO Work Phone: [facility] 09-23-2022 tetanus toxoid, redu olinda diphtheria toxoid, and acellular pertussis vaccine, adsorbed DR PERFECTO CRAWFORD MD [facility] 01-20-2022 influenza (aIIV4) vaccine, age 65+ yr, quadrivalent, PF (FLUAD QUADRIVALENT) Arsalan Lilly MD Work Phone: [facility] 01-20-2022 influenza virus vaccine, unspecified formulation Injection Wstr Work Phone: [facility] 06-19-2021 pneumococcal (PCV20) vaccine, 20 valent (PREVNAR 20) Lillian Lopez MD Work Phone: [facility] Work Phone: 12-26-2020 influenza, high dose seasonal, preservative-free Lillian Lopez MD Work Phone: [facility] 12-26-2020 influenza, high-dose , quadrivalent vaccine (FLUZONE HIGH DOSE QUADRIVALENT) Lillian Lopez MD Work Phone: [facility] 06-23-2020 COVID-19 vaccine, fu ll dose (MODERNA) Lillian Lopez MD Work Phone: [facility] 05-26-2020 COVID-19 vaccine, fu ll dose (MODERNA) Lillian Lopez MD Work Phone: [facility] 02-16-2020 zoster vaccine recombinant Lillian Lopez MD Work Phone: [facility] 12-08-2019 influenza, high-dose , quadrivalent vaccine (FLUZONE HIGH DOSE QUADRIVALENT) Lillian Lopez MD Work Phone: [facility] 12-08-2019 zoster vaccine recombinant Lillian Lopez MD Work Phone: [facility] 12-15-2018 influenza, high dose seasonal, preservative-free Lillian Lopez MD Work Phone: [facility] 12-15-2018 Influenza, injectabl e, Madin Screven Canine Kidney, preservative free, quadrivalent Lillian Lopez MD Work Phone: [facility] Work Phone: 10-12-2018 pneumococcal conjuga te vaccine, 13 valent Lillian Lopez MD Work Phone: [facility] 01-28-2018 Influenza, injectabl e, Madin Screven Canine Kidney, preservative free, quadrivalent Lillian Lopez MD Work Phone: [facility] Work Phone: 12-17-2016 influenza, injectabl e, quadrivalent, preservative free Lillian Lopez MD Work Phone: [facility] Work Phone: 12-17-2016 influenza, seasonal, injectable Lillian Lopez MD Work Phone: [facility] 01-11-2016 pneumococcal polysaccharide vaccine, 23 valent Lillian Lopez MD Work Phone: [facility] 12-07-2015 influenza, injectabl e, quadrivalent, contains preservative Lillian Lopez MD Work Phone: [facility] 11-24-2015 influenza, injectabl e, quadrivalent, preservative free Lillian Lopez MD Work Phone: [facility] Work Phone: 12-26-2010 influenza virus vaccine, unspecified formulation Lillian Lopez MD Work Phone: [facility] Work Phone: 04-05-2009 novel [id number], preservative-free, injectable Lillian Lopez MD Work Phone: [facility] Work Phone: 01-21-2008 tetanus toxoid, redu olinda diphtheria toxoid, and acellular pertussis vaccine, adsorbed Lillian Lopez MD Work Phone: [facility] Work Phone: Payers Date Payer Category Payer Self-pay 2021 Medicare [id number] 2021 Private Health Insurance [facility] [id number] 2021-Present [phone] [address] [place] [address] Indemnity [id number] 2021 Private Health Insurance [id number] 2021 Unknown [id number] 2018 Medicare [id number] 2018 Medicare [id number] 2016 Unknown [id number] 2002 Government (not [facility] care or Medicaid) [facility] [id number] 2002 Unknown [id number] 1953 Unknown [id number] .594 1953 Unknown [id number] 2.16.840.1.266964.3.579.2 .627 Unknown [id number] Unknown [id number] 2.16.840.1.814882.3.579.2 .462 Unknown [id number] 2.16.840.1.405263.3.579.2 .462 Unknown [id number] 2.16.840.1.599823.3.579.2 .462 Unknown [id number] 2.16.840.1.018419.3.579.2 .462 Unknown [id number] 2.16.840.1.927173.3.579.2 .462 Unknown [id number] 2.16.840.1.750917.3.579.2 .462 Unknown [id number] 2.840.1.308265.3.579.2 .462 Unknown [id number] 2.840.1.226174.3.579.2 .462 Unknown [id number] 2.840.1.369440.3.579.2 .462 Unknown [id number] 2.840.1.815255.3.579.2 .462 Unknown [id number] 2.840.1.488014.3.579.2 .462 Unknown [id number] 2.840.1.532294.3.579.2 .462 Unknown [id number] 2.840.1.024142.3.579.2 .462 Unknown [id number] 2.840.1.993329.3.579.2 .462 Unknown [id number] 2.16840.1.768513.3.579.2 .462 Unknown [id number] 2.16840.1.057071.3.579.2 .462 Unknown [id number] 2.16840.1.877164.3.579.2 .462 Unknown [id number] 2.16840.1.309282.3.579.2 .462 Unknown [id number] 2.16840.1.232962.3.579.2 .462 Unknown [id number] 2.0.1.650513.3.579.2 .462 Unknown [id number] 2.0.1.735811.3.579.2 .462 Unknown [id number] 2.0.1.047407.3.579.2 .462 Unknown [id number] [id number] .462 Social History Date Type Detail Facility Start: 07-13-2013 End: 10-28-2024 Tobacco smoking status NHIS Ex-smoker [facility] Start: 01-13-1971 End: 07-13-1973 History of tobacco use Current smoker [facility] Start: 01-13-1971 End: 07-13-1973 History of tobacco use Cigarette Smoker [facility] Start: 07-13-2013 End: 10-29-2022 Cigarettes smoked current (pack per day) - Reported 0.25 [facility] Start: 07-13-2013 End: 10-28-2024 Tobacco use and exposure Smokeless tobacco non-user [facility] Start: 06-21-2021 End: 12-14-2024 Alcohol intake Current drinker of alcohol (finding) [facility] Start: 06-28-2020 History SDOH Alcohol Frequency 4 [facility] Start: 06-28-2020 End: 04-09-2021 History SDOH Alcohol Std Drinks 1 [facility] Start: 08-09-2020 History SDOH Alcohol Comment occasionally [facility] Start: 06-28-2020 History SDOH Social Connections Phone 5 [facility] Start: 06-28-2020 History SDOH Social Connections Catholic 3 [facility] Start: 06-28-2020 History SDOH Social Connections Membership 98 [facility] Start: 06-28-2020 End: 04-09-2021 History SDOH Transport Med 2 [facility] Start: 06-28-2020 Education 17 [facility] Start: 1955 Sex Assigned At Male [facility] Start: 06-11-2021 End: 02-27-2022 Exposure to SARS-CoV-2 (event) Not sure [facility] Start: 01-30-1956 Sex Assigned At Not on file [facility] Sex Assigned At Sex [facility] Start: 06-28-2020 End: 10-29-2022 Social connection and isolation panel [facility] Start: 03-08-2012 Do you belong to any clubs or organizations such as moravian groups, [employer], [employer] or athletic groups, or school groups? Patient refused [facility] Are you now , , , , never or living with a partner? [facility] How often to you hav e a drink containing alcohol? 2-3 time sa week [facility] How many standard dr inks containing alcohol do you have on a typical day? 1 or 2 [facility] How often do you hav e 6 or more drinks on 1 occasion? Never [facility] Do you feel stress - tense, restless, nervous, or anxious, or unable to sleep at night because your mind is troubled all the time - these days [OSQ] Not at all [facility] (I/We) worried layla virk (my/our) food would run out before (I/we) got money to buy more. Never true [facility] In the past 12 month s, was there a time when you were not able to pay the mortgage or rent on time? No [facility] Start: 10-07-2018 Gender identity Identifies as male gender (finding) [facility] Start: 10-11-2019 Sexual orientation Heterosexual (finding) [facility] Do you belong to any clubs or organizations such as moravian groups, [employer], [employer] or athletic groups, or school groups? Yes [facility] Do you feel stress - tense, restless, nervous, or anxious, or unable to sleep at night because your mind is troubled all the time - these days [OSQ] Only a little [facility] Start: 01-30-2023 End: 10-06-2024 Alcohol intake Ex-drinker (finding) [facility] Start: 09-18-2024 End: 10-15-2024 Tobacco smoking status NHIS Never smoked tobacco (finding) [facility] Start: 10-28-2024 Tobacco Comment In [facility] Procedure Code Equipment Code Equipment Original Text Equipment Identifier Dates Appendectomy, laparoscopic Surgical staple loading unit, non-cutting [id number] Start: 02-05-2024 Restrata Wound Matrix 2in X 2in [id number] Start: 11-03-2024 Comment on above: Description: LADAN Braden EDICAL Goals Date Patient Goal Desired Activity /State Personal health goal Personal health goal Functional Status Date Assessment Result Facility 10-19-2024 Functional status Ambulates;Chair [facility] Work Phone: 09-22-2024 Functional status Ambulates;Chair [facility] Work Phone: 09-23-2022 Functional Status Up ad jerrell Kaity Briceno Rumson 10-11-2014 Are you deaf, or do you have serious difficulty hearing No 10/11/2014 1:54 PM EDT Mariangel Baum MA No [facility] 10-11-2014 Are you blind, or do you have serious difficulty seeing, even when wearing glasses No 10/11/2014 1:54 PM ERIKAT Mariangel Baum MA No [facility] 10-11-2014 Do you have serious difficulty walking or climbing stairs No 10/11/2014 1:54 PM EDT Mariangel Baum MA No [facility] 10-11-2014 Do you have difficul ty dressing or bathing No 10/11/2014 1:54 PM ERIKAT Mariangel Baum MA No [facility] 10-11-2014 Because of a physica l, mental, or emotional condition, do you have difficulty doing errands alone such as visiting a physician's office or shopping No 10/11/2014 1:54 PM EDT Mariangel Baum MA No [facility] Mental Status Date Assessment Result Facility 10-19-2024 Cognitive function Voice/Name [facility] Work Phone: 10-15-2024 Cognitive function Level Of Cons ciousness Awake;Alert;Appropriate [facility] Work Phone: 09-22-2024 Cognitive function Voice/Name [facility] Work Phone: 09-18-2024 Cognitive function Level Of Cons ciousness Awake;Alert;Appropriate;Fol lows Commands [facility] Work Phone: 09-23-2022 Mental Status Orientation Oriented x 4 [facility] Kaitymilly Spencer 10-11-2014 Because of a physica l, mental, or emotional condition, do you have serious difficulty concentrating, remembering, or making decisions No 10/11/2014 1:54 PM EDT Mariangel Baum MA No [facility] Clinical Notes 07-13-2013 to 01-26-2025 Linden Mcguire MD - 12/14/2024 11:48 AM EDTTelephone Encounter - Carley Rome MA - 12/07/2024 2:19 PM EDTTelephone Encounter - Carley Rome MA - 12/07/2024 2:19 PM EDTPatient Instructions Note Date & Type Note Facility 01-26-2025 Note [facility] 01-26-2025 Note [facility] 01-21-2025 Note [facility] 01-14-2025 Note [facility] 12-29-2024 Note HNO ID: [id number] Author: LORIN ZHANG LPN Service: ? Author Type: Licensed Nurse Type: Progress Notes Filed: 12/29/2024 14:58 Note Text: Patient here for injection of Aranesp. Given SQ in left arm. Patient tolerated well. Lorin Zhang LPN [facility] 12-23-2024 Note [facility] 12-22-2024 Note [facility] 12-14-2024 Note [facility] 12-14-2024 History of Presen t illness Narrative Images from the original note were not included. SECTION OF FACIAL PLASTIC AND RECONSTRUCTIVE SURGERY [facility] [place], [facility] Post-operative Visit Date of service: 12/14/2024 Luther Castillo is a 69 year old male who presents after surgery for follow-up. Procedure: - Debridement of cranial bone, 10 sq cm - Sharp preparation of wound bed with excision of scar in preparation for tissue transfer; 9 sq cm total area - Adjacent tissue transfer, location: Vertex scalp, flap type: O to Z rotation-advancement flap, total area: 200 sq cm Date: 12/03/24 Doing well with no significant concerns since surgery. Pain under control. Denies symptoms of infection. On exam, suture lines are intact. No evidence of infection. Assessment/Plan: Doing well after surgery. Continue routine wound care. Follow up in 6 week. Linden Mcguire MD, FACS Facial Plastic and Reconstructive Surgery [facility], [facility] documented in this encounter [facility] 12-07-2024 Telephone encounter Note Patient informed and verbalized understanding. Carley Rome MA [facility] 12-07-2024 Miscellaneous Notes Patient informed and verbalized understanding. Carley Rome MA ----- Message from Arsalan Lilly MD sent at 12/07/2024 6:58 AM EDT ----- Blood cultures negative for infection after 5 days. ----- Message ----- From: Lab, Background User Sent: 12/01/2024 5:05 PM EDT To: Arsalan Lilly MD documented in this encounter [facility] 12-07-2024 Telephone encounter Note ----- Message from Arsalan Lilly MD sent at 12/07/2024 6:58 AM EDT ----- Blood cultures negative for infection after 5 days. ----- Message ----- From: Lab, Background User Sent: 12/01/2024 5:05 PM EDT To: Arsalan Lilly MD [facility] 12-07-2024 Telephone encounter Note Patient called requesting the following refill. Requested Prescriptions Pending Prescriptions Disp Refills tamsulosin (FLOMAX) 0.4 mg 90 capsule 3 Sig: Take 1 capsule by mouth once daily. Patient last appointment: 11/11/2024 Patient Phone numbers: [phone] (home) Request is for script(s) to be escript to pharmacy. Gerda Robles MA [facility] 12-07-2024 Miscellaneous Notes Patient called requesting the following refill. Requested Prescriptions Pending Prescriptions Disp Refills tamsulosin (FLOMAX) 0.4 mg 90 capsule 3 Sig: Take 1 capsule by mouth once daily. Patient last appointment: 11/11/2024 Patient Phone numbers: [phone] (home) Request is for script(s) to be escript to pharmacy. Gerda Robles MA documented in this encounter [facility] 12-03-2024 Note [facility] 12-02-2024 Instructions Malena Maynard PA-C - 12/02/2024 1:13 PM EDT Images from the original note were not included. [facility] PATIENT PREOPERATIVE INSTRUCTIONS No ref. provider found has scheduled you for your procedure at this surgery [place]: [facility]: [phone] --[address] [place] [address]. Please read below carefully for your personalized instructions. Dietary Restrictions: - No solid food after midnight. - You may have 12 ounces of clear liquids (water, clear juices such as apple juice or gatorade, carbonated beverages, clear tea, black coffee, jello) until 2 hours before scheduled arrival at facility. Medications: Unless instructed differently below, stay on all of your medications until your surgery. If you start any new medications after today's visit, please contact your surgeon. Pre-Surgery Med Instructions Medication Instructions predniSONE (DELTASONE) 5 mg tablet If you normally take this medication in the morning, take the morning of surgery. abiraterone 250 mg tablet If you normally take this medication in the morning, take the morning of surgery. Ibuprofen 200 mg cap Stop 7 days prior to surgery. atorvastatin (LIPITOR) 20 mg tablet If you normally take this medication in the morning, take the morning of surgery. tamsulosin (FLOMAX) 0.4 mg If you normally take this medication in the morning, take the morning of surgery. cimetidine (TAGAMET) 200 mg tablet If you normally take this medication in the morning, take the morning of surgery. calcium carbonate/vitamin D3 (CALCIUM + D ORAL) Do not take the day of surgery If you take any medications for erectile dysfunction-Cialis (Tadalafil), Levitra, Staxyn (Vardenafil) Viagra (Sildenenafil please do not take these for 48 hours before surgery. If you start any new medications after today's visit, please contact the surgeon's office. If you are currently using a gdkv-rsh-vzaf injectable or oral medication for diabetes or weight loss such as Dulaglutide (Trulicity), Exenatide (Byetta, Bydureon), Liraglutide (Victoza, Saxenda), Semaglutide (Ozempic, Wegovy, Rybelsus), or Tirzepatide (Mounjaro), the medicine should be stopped at least 7 days before surgery. These medicines can cause food to remain in your stomach for a very long time and increase the risks from surgery and anesthesia. Not stopping the medication for a long enough time may result in your surgery being rescheduled. Blood Thinning Medications: - Stop NSAIDS (Ibuprofen, Advil, Aleve, Motrin, Celebrex, Mobic, etc.) 7 days before surgery, as directed by your surgeon. - Stop Aspirin 7 days before surgery, as directed by your surgeon. - Stop ALL herbal and dietary supplements 7 days before surgery. - You may take Tylenol (Acetaminophen) or any of your pain medications that do not contain aspirin or NSAIDS as needed. Important Reminders: - Candy, mints, and tobacco products are NOT permitted the morning of surgery. - Hearing aids, dentures and glasses may be worn the morning of surgery. - NO jewelry, body piercings, makeup, hairpins or contacts are to be worn the day of surgery. If you develop symptoms such as a fever, cold, or flu, or have other changes to your health within TWO DAYS of scheduled surgery or the morning of surgery, please contact the surgery center above. Personal Belongings: -Please have photo ID and insurance cards. -If you do not have a copy of advance directives on file with us, please bring a copy with you on the day of surgery. - Leave ALL valuables and money at home or with family members. - Please bring high-quality footwear, such as sneakers, to the hospital for ambulating post-surgery. For Outpatient Procedures: - YOU MUST HAVE A RESPONSIBLE REAL ESTATE BROKER TAKE YOU HOME. A REAL ESTATE BROKER OR ORDNANCE KEEPER CANNOT BE MADE A RESPONSIBLE REAL ESTATE BROKER. - We recommend that a responsible person stays with you overnight to take care of you. - You cannot stay in a hotel alone after outpatient surgery. You will not be permitted to have your surgery, if you do not have someone to take care of you. Arrival Time for Surgery: - The Surgery Center or hospital where you are having surgery will call the afternoon before surgery (or Friday for Friday surgery) with a scheduled arrival time. - If you have not heard by 4 pm, please contact the surgery center above. Please be aware that emergency situations arise, which may delay or change your surgical time. If this happens, we will notify you as soon as possible and regret any inconvenience. If you already have an Advance Directive, please fax a copy to [phone] or email to for it to be added to your chart. If you do not have an Advance Directive, you can find the appropriate form and more information at [email or web address]. We recommend that you complete the Advance Directive form found on the website and bring it with you the day of your surgery. It can be witnessed and scanned into your chart that day. Malena Maynard PA-C documented in this encounter [facility] 12-02-2024 History and physical note Images from the original note were not included. [facility] HISTORY AND PHYSICAL EXAMINATION SERVICE DATE: 12/02/2024 SERVICE TIME: 1:29 PM PRIMARY CARE PHYSICIAN: Arsalan Lilly MD Assessment Patient has the following medical conditions which may affect wendy-operative course: Carotid bruit Carotid US 10/29/24 with moderate atherosclerotic disease of carotid bifurcations with stenosis less than 50% on either side. GERD Stable, on rx. Anemia On Aranesp injections. Hgb 9.3 on 12/01/24. Malignant Neoplasm of Prostate Prostate cancer with bone mets. On abiraterone, prednisone, Eligard and Xgeva. Septic Shock Two episodes of sepsis requiring hospitalization September and October 2024. Currently off antibiotics. Follows with ID, last visit 11/26/24. ANESTHESIA FINDINGS: Intubation History: No history of difficult intubation Significant Anesthesia Considerations: none Airway History: No history of difficult airway Vega Activity Status Index: METS: Walk indoors, such as around the house (1.75 METs) Do light work around the house, such as dusting or washing dishes (2.70 METs) Take care of self; that is eating, dressing, bathing, using the toilet (2.75 METs) DASI Score: 7.2 (Shortness of Breath climbing a flight of stairs, walking longer distances, house work. Has been going on for about a year, denies worsening since he last had surgery ) Patient denies any chest pain or undue shortness of breath with the above physical activity. Clinical Frailty Scale: 4. Apparently vulnerable STOP-Bang Score: Snores loudly Patient over 48 years old Male patient Has not been observed to stop breathing or choking/gasping during sleep Denies having high blood pressure BMI less than or equal to 35 kg/m^2 STOP-Bang Score: 3 I - PHYSICAL EVALUATION AIRWAY Patient intubated: No. Tracheostomy tube not present Mallampati: I. Neck ROM: full ROM without neurological symptoms. Mouth openin FB. Short neck: no. Thick neck: no Lip Bite Test: I DENTAL Dental findings: teeth intact. Additional comments: Crowns . II - ANESTHESIA PLAN Anesthetic plan additional comments: *[facility] - anesthesia choice. Informed Consent Prepared for Surgery: optimally prepared for surgery. Patient was seen at [facility] the day before surgery. CONSULTS: Patient does not require consults for optimization at this time Planned Anesthetic: anesthesia choice The Following Tests/Procedures Have Been Initiated: No orders of the defined types were placed in this encounter. CBC and BMP drawn 12/01/24 reviewed and accepted. EKG not indicated per [facility] protocol. This is a virtual visit using [employer] video visit. It required patient-provider interaction for the medical decision making as documented below. REASON FOR VISIT: Luther Castillo is a 69 year old male who is scheduled for Procedure(s): GRAFT SKIN FULL THICKNESS FREE, INCL DIRECT CLOSURE DONOR SITE, SCALP, 20 SQ CM OR LESS (N/A) at the request of Linden Sinha MD for consultation. My final recommendation will be communicated back to the requesting physician by way of shared medical record or letter. Subjective The patient has the following: COVID-19 Immunization Status This patient has no relevant Health Maintenance data. CHIEF COMPLAINT: Pre-op evalution HPI: Patient is a 69 year old year old male who is scheduled for above procedure on 12/03/2024. Patient has a non-healing scalp wound following Mohs surgery 6 months ago. He has been seeing wound center in [place]. Denies any fevers, chills, nausea, vomiting, or chest pain. This is a virtual visit. The visit was conducted using [employer] video visit. It required patient-provider interaction for the medical decision making as documented below. I have communicated my name and active licensure. The patient's identity and physical location were verified at the time of this visit. Either the patient or their legal collections representative has been informed of the risks and benefits of and alternatives to treatment through a remote evaluation and consents to proceed with the evaluation remotely. REVIEW OF SYSTEMS: General: Negative for: weight loss >10% of BW in last 6 months, malaise and fever. Neurological: No history of TIA's, stroke, ORTHODONTIST VICE PRESIDENT tumor, impaired sensorium, hemiplegia, paraplegia or quadraplegia. No neurological symptoms or problems. Negative for: delirium, dementia, seizures, TIA and strokes. Respiratory: Positive for: current cough (at night, dry. denies worsening.) and dyspnea. Negative for: asthma, COPD, pneumonia within 6 weeks and obstructive sleep apnea. Cardiovascular: Negative for: angina, arrhythmia, CAD, chest pain, CHF, DVT/PE, hypertension and murmur/valvular heart disease. GI: Positive for: GERD and heartburn Negative for: abdominal pain, hepatitis, inflammatory bowel disease, liver disease, nausea, vomiting and ETOH >2 drinks/day. : Negative for: BPH, dysuria, hematuria, nephrolithiasis and renal failure. Endocrine: Negative for: diabetes mellitus, hyperthyroidism, hypothyroidism and steroid for chronic problem. Hematology: Positive for: anemia. Negative for: chronic anti-coagulation/platelet meds. Oncology: Prostate cancer Psych: Negative for: ADD, anxiety, depression and drug dependency. Musculoskeletal: Negative for joint pain or swelling, back pain or muscle pain. Skin: See HPI. PAST MEDICAL HISTORY Diagnosis Date Abdominal pain, left lower quadrant Actinic keratosis Allergic rhinitis, cause unspecified Allergic rhinitis Anemia, unspecified type Arthritis Benign neoplasm of rectum and anal canal Bilateral lower extremity edema BPH (benign prostatic hyperplasia) Elevated PSA Dr Mckeon Family history of malignant neoplasm of prostate 02/13/2017 Gastroesophageal reflux disease with esophagitis 10/09/2016 Hemorrhoids, unspecified hemorrhoid type History of squamous cell carcinoma of skin 06/2017 left frontal scalp Iron deficiency anemia, unspecified Prostate cancer (HCC) Dr. 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 Seborrheic keratosis Vasovagal reaction 10/09/2016 PAST SURGICAL HISTORY Procedure Laterality Date APPENDECTOMY 02/05/2024 [facility] COLONOSCOPY 02/27/2022 COLONOSCOPY FLX DX W/COLLJ [...] SURGICAL HISTORY OF 10/19/2002 left carpal tunnel PAST SURGICAL HISTORY OF Mohs RECONSTRUCTION ROTATOR CUFF AVULSION CHRONIC Right 10/11/2016 Right shoulder subacromial decompression TONSILLECTOMY HX TONSILLECTOMY PRIMARY/SECONDARY Tonsillectomy FAMILY HISTORY Problem Relation Age of Onset Arthritis Mother Prostate Cancer Father Dx late 70s/80s, metastatic Colon Cancer Sister Dx late 50s No Known Problems Sister Prostate Cancer Paternal Uncle Metastatic Heart Attack Maternal Grandfather Prostate Cancer Paternal cousin Two paternal 1st cousins (brothers to each other), sons of the uncle with cancer Anesthesia No Family History SOCIAL HISTORY[1] Prior to Admission medications as of 12/02/24 1306 Medication Sig Last Dose Taking predniSONE (DELTASONE) 5 mg tablet TAKE 1 TABLET BY MOUTH TWICE DAILY Yes abiraterone 250 mg tablet TAKE 4 TABLETS ONCE DAILY ON AN EMPTY STOMACH 1 HOUR BEFORE OR 2 HOURS AFTER A MEAL Yes Ibuprofen 200 mg cap Take by mouth every 6 hours as needed. Yes atorvastatin (LIPITOR) 20 mg tablet Take 1 tablet by mouth daily at bedtime. For cholesterol. Yes tamsulosin (FLOMAX) 0.4 mg Take 1 capsule by mouth once daily. Yes cimetidine (TAGAMET) 200 mg tablet Take 200 mg by mouth twice daily. Yes calcium carbonate/vitamin D3 (CALCIUM + D ORAL) Take 1 tablet by mouth twice daily. Yes amoxicillin-clavulanate potassium (AUGMENTIN) 875-125 mg per tablet Take 1 tablet by mouth two times a day. iv contrast (will be provided with radiology test) MRI Brain Inject, intravenously, once for 1 [...] in the MR contrast administration guidelines link scopolamine (TRANSDERM-SCOP) patch 1.5 mg/72 hr (delivers 1 mg over 3 days) Apply 1 Patch as directed every 72 hours. dexAMETHasone (DECADRON) 4 mg tablet Take 1 tablet by mouth daily with breakfast. Take on mornings of injections Patient not taking: Reported on 12/02/2024 darbepoetin dagmar in [place]ohn (ARANESP INJECTION) [...] the MR contrast administration guidelines link. No medication comments found. ALLERGIES Allergen Reactions Ragweed Pollen Other: See Comments Watering/itchy eyes Objective PHYSICAL EXAM: (if completed, exam performed via video enabled technology) General: alert and oriented. Pertinent negatives noted - not distressed. Skin: No rash noted. HEENT: Normocephalic head, no abnormality or lesion noted Eyes with no injection and visual acuity is grossly normal. Cardiovascular: Self palpated radial pulse, regular when counted aloud by patient . Respiratory: breathing non-labored. Equal chest rise with normal respiratory effort . Abdomen: Unable to examine. Extremities: No obvious deformity. Neurological: No obvious defect. PAIN ASSESSMENT: VITALS: Pulse 102[Pt reported[ Ht 5' 8[Pt reported[ (1.73m) Wt 142 lb (64.4kg) BMI 21.60 kg/(m^2). Diagnostic tests reviewed for today's visit: Lab Value Units Date High Low HB 9.3 g/dL 12/01/2024 17.0 13.0 HCT 31.0 % 12/01/2024 51.0 39.0 WBC 6.58 k/uL 12/01/2024 11.00 3.70 PLT 194 k/uL 12/01/2024 400 150 NA 139 mmol/L 12/01/2024 144 136 K 3.7 mmol/L 12/01/2024 5.1 3.7 GLUC 93 mg/dL 12/01/2024 99 74 BUN 23 mg/dL 12/01/2024 24 9 CREAT 0.93 mg/dL 12/01/2024 1.22 0.73 PTSEC No results within date range. INR No results within date range. APTT No results within date range. ALT 32 U/L 10/22/2024 54 10 AST 23 U/L 10/22/2024 40 14 TBILI 0.7 mg/dL 10/22/2024 1.3 0.2 TSH No results within date range. Lab Value Units Date High Low HCGQT No results within date range. UHCG No results within date range. HCG, BODY* No results within date range. Lab Value Units Date High Low ABORHD No results within date range. ABSCREEN No results within date range. No results found for: HBA1C Recent Results (from the past 8760 hours) ECG COMPLETE Collection Time: 08/09/24 3:29 PM Result Value Ventricular Rate 95 Atrial Rate 95 P-R Interval 136 QRS Duration 76 QT Interval 360 QTC Calculation (Bazett) 452 Calculated P Throckmorton 61 Calculated R Throckmorton -32 Calculated T Throckmorton 62 Impression NORMAL SINUS RHYTHM ANTERIOR T WAVE ABNORMALITY ABNORMAL ECG Confirmed by MD JOZEF, QAB ([id number]) on 08/10/2024 11:55:46 AM Recent Results (from the past 38877 hours) ECHO Collection Time: 08/26/24 9:21 AM Impression CONCLUSIONS: - Technically difficult exam due to body habitus. - Exam indication: Exam indication: Shortness of Breath - The left ventricle is normal in size. Left ventricular systolic function is normal. EF = 55 5% (2D biplane) Normal left ventricular diastolic function. - The right ventricle is normal in size. Right ventricular systolic function is normal. - There are no significant valvular abnormalities. - Exam was compared with the prior echocardiographic exam performed on 07/03/2023, no significant change. * * * Final * * * Carotid US 10/29/24: IMPRESSION: Moderate atherosclerotic disease of the carotid bifurcations, right greater than left, with stenosis less than 50% on either side. Antegrade vertebral artery flow is maintained. NM cardiac stress test 11/12/2023: CONCLUSIONS: 1. SPECT Perfusion Study: Normal. 2. There is no scintigraphic evidence for inducible ischemia. 3. No evidence of scarred myocardium. 4. Left ventricle is normal in size. The left ventricle systolic function is normal. 5. This is a low risk scan. Gated Stress IR:3D LVEF % 74 Instructions Given to Patient: Instructions located in the after visit summary. Patient given verbal and written preop instructions and voices comprehension and compliance. SIGNATURE: Malena Maynard PA-C PATIENT NAME: Luther Castillo DATE: December 02, 2024 TIME: 1:00 PM PAGER/CONTACT #: [1] Social History Tobacco Use Smoking status: Former Current packs/day: 0.00 Average packs/day: 0.3 packs/day for 2.5 years (0.6 ttl pk-yrs) Types: Cigarettes Start date: 01/13/1971 Quit date: 07/13/1973 Years since quittin.4 Smokeless tobacco: Never Tobacco comments: In college Vaping Use Vaping status: Never Used Substance Use Topics Alcohol use: Yes Alcohol/week: 6.0 standard drinks of alcohol Types: 6 Cans of Beer (12oz) per week Comment: occasionally Drug use: No [facility] 12-02-2024 History and physical note Images from the original note were not included. [facility] HISTORY AND PHYSICAL EXAMINATION SERVICE DATE: 12/02/2024 SERVICE TIME: 1:29 PM PRIMARY CARE PHYSICIAN: Arsalan Lilly MD Assessment Patient has the following medical conditions which may affect wendy-operative course: Carotid bruit Carotid US 10/29/24 with moderate atherosclerotic disease of carotid bifurcations with stenosis less than 50% on either side. GERD Stable, on rx. Anemia On Aranesp injections. Hgb 9.3 on 12/01/24. Malignant Neoplasm of Prostate Prostate cancer with bone mets. On abiraterone, prednisone, Eligard and Xgeva. Septic Shock Two episodes of sepsis requiring hospitalization September and October 2024. Currently off antibiotics. Follows with ID, last visit 11/26/24. ANESTHESIA FINDINGS: Intubation History: No history of difficult intubation Significant Anesthesia Considerations: none Airway History: No history of difficult airway Vega Activity Status Index: METS: Walk indoors, such as around the house (1.75 METs) Do light work around the house, such as dusting or washing dishes (2.70 METs) Take care of self; that is eating, dressing, bathing, using the toilet (2.75 METs) DASI Score: 7.2 (Shortness of Breath climbing a flight of stairs, walking longer distances, house work. Has been going on for about a year, denies worsening since he last had surgery ) Patient denies any chest pain or undue shortness of breath with the above physical activity. Clinical Frailty Scale: 4. Apparently vulnerable STOP-Bang Score: Snores loudly Patient over 48 years old Male patient Has not been observed to stop breathing or choking/gasping during sleep Denies having high blood pressure BMI less than or equal to 35 kg/m^2 STOP-Bang Score: 3 I - PHYSICAL EVALUATION AIRWAY Patient intubated: No. Tracheostomy tube not present Mallampati: I. Neck ROM: full ROM without neurological symptoms. Mouth openin FB. Short neck: no. Thick neck: no Lip Bite Test: I DENTAL Dental findings: teeth intact. Additional comments: Crowns . II - ANESTHESIA PLAN Anesthetic plan additional comments: *[facility] - anesthesia choice. Informed Consent Prepared for Surgery: optimally prepared for surgery. Patient was seen at [facility] the day before surgery. CONSULTS: Patient does not require consults for optimization at this time Planned Anesthetic: anesthesia choice The Following Tests/Procedures Have Been Initiated: No orders of the defined types were placed in this encounter. CBC and BMP drawn 12/01/24 reviewed and accepted. EKG not indicated per [facility] protocol. This is a virtual visit using [employer] video visit. It required patient-provider interaction for the medical decision making as documented below. REASON FOR VISIT: Luther Castillo is a 69 year old male who is scheduled for Procedure(s): GRAFT SKIN FULL THICKNESS FREE, INCL DIRECT CLOSURE DONOR SITE, SCALP, 20 SQ CM OR LESS (N/A) at the request of Linden Sinha MD for consultation. My final recommendation will be communicated back to the requesting physician by way of shared medical record or letter. Subjective The patient has the following: COVID-19 Immunization Status This patient has no relevant Health Maintenance data. CHIEF COMPLAINT: Pre-op evalution HPI: Patient is a 69 year old year old male who is scheduled for above procedure on 12/03/2024. Patient has a non-healing scalp wound following Mohs surgery 6 months ago. He has been seeing wound center in [place]. Denies any fevers, chills, nausea, vomiting, or chest pain. This is a virtual visit. The visit was conducted using [employer] video visit. It required patient-provider interaction for the medical decision making as documented below. I have communicated my name and active licensure. The patient's identity and physical location were verified at the time of this visit. Either the patient or their legal collections representative has been informed of the risks and benefits of and alternatives to treatment through a remote evaluation and consents to proceed with the evaluation remotely. REVIEW OF SYSTEMS: General: Negative for: weight loss >10% of BW in last 6 months, malaise and fever. Neurological: No history of TIA's, stroke, ORTHODONTIST VICE PRESIDENT tumor, impaired sensorium, hemiplegia, paraplegia or quadraplegia. No neurological symptoms or problems. Negative for: delirium, dementia, seizures, TIA and strokes. Respiratory: Positive for: current cough (at night, dry. denies worsening.) and dyspnea. Negative for: asthma, COPD, pneumonia within 6 weeks and obstructive sleep apnea. Cardiovascular: Negative for: angina, arrhythmia, CAD, chest pain, CHF, DVT/PE, hypertension and murmur/valvular heart disease. GI: Positive for: GERD and heartburn Negative for: abdominal pain, hepatitis, inflammatory bowel disease, liver disease, nausea, vomiting and ETOH >2 drinks/day. : Negative for: BPH, dysuria, hematuria, nephrolithiasis and renal failure. Endocrine: Negative for: diabetes mellitus, hyperthyroidism, hypothyroidism and steroid for chronic problem. Hematology: Positive for: anemia. Negative for: chronic anti-coagulation/platelet meds. Oncology: Prostate cancer Psych: Negative for: ADD, anxiety, depression and drug dependency. Musculoskeletal: Negative for joint pain or swelling, back pain or muscle pain. Skin: See HPI. PAST MEDICAL HISTORY Diagnosis Date Abdominal pain, left lower quadrant Actinic keratosis Allergic rhinitis, cause unspecified Allergic rhinitis Anemia, unspecified type Arthritis Benign neoplasm of rectum and anal canal Bilateral lower extremity edema BPH (benign prostatic hyperplasia) Elevated PSA Dr Mckeon Family history of malignant neoplasm of prostate 02/13/2017 Gastroesophageal reflux disease with esophagitis 10/09/2016 Hemorrhoids, unspecified hemorrhoid type History of squamous cell carcinoma of skin 06/2017 left frontal scalp Iron deficiency anemia, unspecified Prostate cancer (HCC) Dr. 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 Seborrheic keratosis Vasovagal reaction 10/09/2016 PAST SURGICAL HISTORY Procedure Laterality Date APPENDECTOMY 02/05/2024 [facility] COLONOSCOPY 02/27/2022 COLONOSCOPY FLX DX W/COLLJ [...] SURGICAL HISTORY OF 10/19/2002 left carpal tunnel PAST SURGICAL HISTORY OF Mohs RECONSTRUCTION ROTATOR CUFF AVULSION CHRONIC Right 10/11/2016 Right shoulder subacromial decompression TONSILLECTOMY HX TONSILLECTOMY PRIMARY/SECONDARY <AGE 12 Tonsillectomy FAMILY HISTORY Problem Relation Age of Onset Arthritis Mother Prostate Cancer Father Dx late 70s/80s, metastatic Colon Cancer Sister Dx late 50s No Known Problems Sister Prostate Cancer Paternal Uncle Metastatic Heart Attack Maternal Grandfather Prostate Cancer Paternal cousin Two paternal 1st cousins (brothers to each other), sons of the uncle with cancer Anesthesia No Family History SOCIAL HISTORY[1] Prior to Admission medications as of 12/02/24 1306 Medication Sig Last Dose Taking predniSONE (DELTASONE) 5 mg tablet TAKE 1 TABLET BY MOUTH TWICE DAILY Yes abiraterone 250 mg tablet TAKE 4 TABLETS ONCE DAILY ON AN EMPTY STOMACH 1 HOUR BEFORE OR 2 HOURS AFTER A MEAL Yes Ibuprofen 200 mg cap Take by mouth every 6 hours as needed. Yes atorvastatin (LIPITOR) 20 mg tablet Take 1 tablet by mouth daily at bedtime. For cholesterol. Yes tamsulosin (FLOMAX) 0.4 mg Take 1 capsule by mouth once daily. Yes cimetidine (TAGAMET) 200 mg tablet Take 200 mg by mouth twice daily. Yes calcium carbonate/vitamin D3 (CALCIUM + D ORAL) Take 1 tablet by mouth twice daily. Yes amoxicillin-clavulanate potassium (AUGMENTIN) 875-125 mg per tablet Take 1 tablet by mouth two times a day. iv contrast (will be provided with radiology test) MRI Brain Inject, intravenously, once for 1 [...] in the MR contrast administration guidelines link scopolamine (TRANSDERM-SCOP) patch 1.5 mg/72 hr (delivers 1 mg over 3 days) Apply 1 Patch as directed every 72 hours. dexAMETHasone (DECADRON) 4 mg tablet Take 1 tablet by mouth daily with breakfast. Take on mornings of injections Patient not taking: Reported on 12/02/2024 darbepoetin dagmar in [place] (ARANESP INJECTION) [...] the MR contrast administration guidelines link. No medication comments found. ALLERGIES Allergen Reactions Ragweed Pollen Other: See Comments Watering/itchy eyes Objective PHYSICAL EXAM: (if completed, exam performed via video enabled technology) General: alert and oriented. Pertinent negatives noted - not distressed. Skin: No rash noted. HEENT: Normocephalic head, no abnormality or lesion noted Eyes with no injection and visual acuity is grossly normal. Cardiovascular: Self palpated radial pulse, regular when counted aloud by patient . Respiratory: breathing non-labored. Equal chest rise with normal respiratory effort . Abdomen: Unable to examine. Extremities: No obvious deformity. Neurological: No obvious defect. PAIN ASSESSMENT: VITALS: Pulse 102[Pt reported[ Ht 5' 8[Pt reported[ (1.73m) Wt 142 lb (64.4kg) BMI 21.60 kg/(m^2). Diagnostic tests reviewed for today's visit: Lab Value Units Date High Low HB 9.3 g/dL 12/01/2024 17.0 13.0 HCT 31.0 % 12/01/2024 51.0 39.0 WBC 6.58 k/uL 12/01/2024 11.00 3.70 PLT 194 k/uL 12/01/2024 400 150 NA 139 mmol/L 12/01/2024 144 136 K 3.7 mmol/L 12/01/2024 5.1 3.7 GLUC 93 mg/dL 12/01/2024 99 74 BUN 23 mg/dL 12/01/2024 24 9 CREAT 0.93 mg/dL 12/01/2024 1.22 0.73 PTSEC No results within date range. INR No results within date range. APTT No results within date range. ALT 32 U/L 10/22/2024 54 10 AST 23 U/L 10/22/2024 40 14 TBILI 0.7 mg/dL 10/22/2024 1.3 0.2 TSH No results within date range. Lab Value Units Date High Low HCGQT No results within date range. UHCG No results within date range. HCG, BODY* No results within date range. Lab Value Units Date High Low ABORHD No results within date range. ABSCREEN No results within date range. No results found for: HBA1C Recent Results (from the past 8760 hours) ECG COMPLETE Collection Time: 08/09/24 3:29 PM Result Value Ventricular Rate 95 Atrial Rate 95 P-R Interval 136 QRS Duration 76 QT Interval 360 QTC Calculation (Bazett) 452 Calculated P Throckmorton 61 Calculated R Throckmorton -32 Calculated T Throckmorton 62 Impression NORMAL SINUS RHYTHM ANTERIOR T WAVE ABNORMALITY ABNORMAL ECG Confirmed by MD JOZEF, QARAB ([id number]) on 08/10/2024 11:55:46 AM Recent Results (from the past 02404 hours) ECHO Collection Time: 08/26/24 9:21 AM Impression CONCLUSIONS: - Technically difficult exam due to body habitus. - Exam indication: Exam indication: Shortness of Breath - The left ventricle is normal in size. Left ventricular systolic function is normal. EF = 55 5% (2D biplane) Normal left ventricular diastolic function. - The right ventricle is normal in size. Right ventricular systolic function is normal. - There are no significant valvular abnormalities. - Exam was compared with the prior echocardiographic exam performed on 07/03/2023, no significant change. * * * Final * * * Carotid US 10/29/24: IMPRESSION: Moderate atherosclerotic disease of the carotid bifurcations, right greater than left, with stenosis less than 50% on either side. Antegrade vertebral artery flow is maintained. NM cardiac stress test 11/12/2023: CONCLUSIONS: 1. SPECT Perfusion Study: Normal. 2. There is no scintigraphic evidence for inducible ischemia. 3. No evidence of scarred myocardium. 4. Left ventricle is normal in size. The left ventricle systolic function is normal. 5. This is a low risk scan. Gated Stress IR:3D LVEF % 74 Instructions Given to Patient: Instructions located in the after visit summary. Patient given verbal and written preop instructions and voices comprehension and compliance. SIGNATURE: Malena Maynard PA-C PATIENT NAME: Luther Castillo DATE: December 02, 2024 TIME: 1:00 PM PAGER/CONTACT #: [1] Social History Tobacco Use Smoking status: Former Current packs/day: 0.00 Average packs/day: 0.3 packs/day for 2.5 years (0.6 ttl pk-yrs) Types: Cigarettes Start date: 01/13/1971 Quit date: 07/13/1973 Years since quittin.4 Smokeless tobacco: Never Tobacco comments: In college Vaping Use Vaping status: Never Used Substance Use Topics Alcohol use: Yes Alcohol/week: 6.0 standard drinks of alcohol Types: 6 Cans of Beer (12oz) per week Comment: occasionally Drug use: No documented in this encounter [facility] 12-01-2024 Note HNO ID: [id number] Author: ARSALAN CASTRO MD Service: ? Author Type: Physician Type: Progress Notes Filed: 12/01/2024 14:02 Note Text: [facility] ESTABLISHED PATIENT NOTE PATIENT: Luther Castillo (69 year old) PCP: Arsalan Lilly MD DATE OF SERVICE: 12/01/2024 The patient is a 69-year-old male with prostate cancer and HTN, presenting for a routine checkup and medication refills. ------ SUMMARY: Prostate cancer. [facility]CRPC. Former Dr. Mckeon patient. Stage IV T3(MRI)N0M1. Bone mets. GG3. Cribriform. Original PSA 29. Diagnosed 04/2021. On abiraterone, prednisone, Eligard 45 mg and Xgeva Oncologist. Dr. Villarreal in [place]. On tamsulosin for nocturia 3x PSA <0.02 Stopping tamsulosin as he feels it does not help Follow up yearly with me 1. History of prostate cancer (Z85.46) 2. Malignant neoplasm of prostate (HCC) (C61) PSA remains undetectable as of 11/03/2023; most recent PSA still processing. Patient continues monthly Aranesp injections and abiraterone acetate therapy. - Continue current treatment regimen. - Annual follow-up recommended, with ongoing close monitoring of blood work. - Will update Dr. Villarreal with a summary of today?s visit. 3. Nocturia (R35.1) Patient reports nocturia 3-4 times nightly. Tamsulosin recently discontinued for 4-5 days; no significant change in frequency noted. - Advised patient that tamsulosin may be less effective in prostate cancer patients compared to those with BPH. - Patient will continue to hold tamsulosin and monitor symptoms; refill to be provided if requested via [employer]. 4. Septic shock (HCC) (A41.9) Patient has been hospitalized twice in the past 3 months for sepsis and septic shock; etiology remains unclear. Urinary source considered but recent urinalysis, including today?s sample, shows no evidence of infection. - Continue close monitoring; no changes to current management at this time. 5. Essential (primary) hypertension (I10) Patient continues to take amlodipine as prescribed. - Continue current management. ----- FOLLOW UP: Return in about 1 year (around 12/01/2025). ORDERS: Orders Placed This Encounter UA DIP, URINE (POC) Order Comments: Ordered by an unspecified provider ------ HISTORY OF PRESENT ILLNESS: Prior notes were reviewed. The patient is a 69-year-old male with a history of prostate cancer, presenting for a routine checkup and medication refills. The patient reports feeling generally well but experiences significant malaise for 4-5 days following his monthly Aranesp injection. He attributes his lack of strength and stamina to his ongoing immunotherapy with abiraterone acetate. He has been hospitalized twice in the past 3 months for 4 nights each due to sepsis and septic shock, with an unknown etiology. Initial suspicions of a urinary source have been ruled out, as recent urinalyses, including today's, show no signs of infection. He has been taking tamsulosin but ran out 4-5 days ago. He notes a possible improvement in ease of urination but continues to experience nocturia 3-4 times per night. He is considering discontinuing tamsulosin to assess its impact on his symptoms. He is also on amlodipine. Recent PSA levels have been undetectable, with the latest test conducted today. REVIEW OF SYSTEMS: Constitutional: (+) malaise, (+) fatigue, (+) generalized weakness Genitourinary: (+) nocturia All other systems negative unless described above. ALLERGIES: ALLERGIES Allergen Reactions Ragweed Pollen Other: See Comments Watering/itchy eyes MEDICATIONS: amoxicillin-clavulanate potassium (AUGMENTIN) 875-125 mg per tablet Take 1 tablet by mouth two times a day. iv contrast (will be provided with radiology test) MRI Brain Inject, intravenously, once for 1 [...] in the MR contrast administration guidelines link predniSONE (DELTASONE) 5 mg tablet TAKE 1 TABLET BY MOUTH TWICE DAILY abiraterone 250 mg tablet TAKE 4 TABLETS ONCE DAILY ON AN EMPTY STOMACH 1 HOUR BEFORE OR 2 HOURS AFTER A MEAL Ibuprofen 200 mg cap Take by mouth every 6 hours as needed. scopolamine (TRANSDERM-SCOP) patch 1.5 mg/72 hr (delivers 1 mg over 3 days) Apply 1 Patch as (more content not included)... [facility] 12-01-2024 History of Presen t illness Narrative Images from the original note were not included. [facility] ESTABLISHED PATIENT NOTE PATIENT: Luther Castillo (69 year old) PCP: Arsalan Lilly MD DATE OF SERVICE: 12/01/2024 The patient is a 69-year-old male with prostate cancer and HTN, presenting for a routine checkup and medication refills. SUMMARY: Prostate cancer. [facility]PC. Former Dr. Mckeon patient. Stage IV T3(MRI)N0M1. Bone mets. GG3. Cribriform. Original PSA 29. Diagnosed 04/2021. On abiraterone, prednisone, Eligard 45 mg and Xgeva Oncologist. Dr. Villarreal in [place]. On tamsulosin for nocturia 3x PSA <0.02 Stopping tamsulosin as he feels it does not help Follow up yearly with me 1. History of prostate cancer (Z85.46) 2. Malignant neoplasm of prostate (HCC) (C61) PSA remains undetectable as of 11/03/2023; most recent PSA still processing. Patient continues monthly Aranesp injections and abiraterone acetate therapy. - Continue current treatment regimen. - Annual follow-up recommended, with ongoing close monitoring of blood work. - Will update Dr. Villarreal with a summary of today s visit. 3. Nocturia (R35.1) Patient reports nocturia 3-4 times nightly. Tamsulosin recently discontinued for 4-5 days; no significant change in frequency noted. - Advised patient that tamsulosin may be less effective in prostate cancer patients compared to those with BPH. - Patient will continue to hold tamsulosin and monitor symptoms; refill to be provided if requested via [employer]. 4. Septic shock (HCC) (A41.9) Patient has been hospitalized twice in the past 3 months for sepsis and septic shock; etiology remains unclear. Urinary source considered but recent urinalysis, including today s sample, shows no evidence of infection. - Continue close monitoring; no changes to current management at this time. 5. Essential (primary) hypertension (I10) Patient continues to take amlodipine as prescribed. - Continue current management. FOLLOW UP: Return in about 1 year (around 12/01/2025). ORDERS: Orders Placed This Encounter UA DIP, URINE (POC) Order Comments: Ordered by an unspecified provider HISTORY OF PRESENT ILLNESS: Prior notes were reviewed. The patient is a 69-year-old male with a history of prostate cancer, presenting for a routine checkup and medication refills. The patient reports feeling generally well but experiences significant malaise for 4-5 days following his monthly Aranesp injection. He attributes his lack of strength and stamina to his ongoing immunotherapy with abiraterone acetate. He has been hospitalized twice in the past 3 months for 4 nights each due to sepsis and septic shock, with an unknown etiology. Initial suspicions of a urinary source have been ruled out, as recent urinalyses, including today's, show no signs of infection. He has been taking tamsulosin but ran out 4-5 days ago. He notes a possible improvement in ease of urination but continues to experience nocturia 3-4 times per night. He is considering discontinuing tamsulosin to assess its impact on his symptoms. He is also on amlodipine. Recent PSA levels have been undetectable, with the latest test conducted today. REVIEW OF SYSTEMS: Constitutional: (+) malaise, (+) fatigue, (+) generalized weakness Genitourinary: (+) nocturia All other systems negative unless described above. ALLERGIES: ALLERGIES Allergen Reactions Ragweed Pollen Other: See Comments Watering/itchy eyes MEDICATIONS: amoxicillin-clavulanate potassium (AUGMENTIN) 875-125 mg per tablet Take 1 tablet by mouth two times a day. iv contrast (will be provided with radiology test) MRI Brain Inject, intravenously, once for 1 [...] in the MR contrast administration guidelines link predniSONE (DELTASONE) 5 mg tablet TAKE 1 TABLET BY MOUTH TWICE DAILY abiraterone 250 mg tablet TAKE 4 TABLETS ONCE DAILY ON AN EMPTY STOMACH 1 HOUR BEFORE OR 2 HOURS AFTER A MEAL Ibuprofen 200 mg cap Take by mouth every 6 hours as needed. scopolamine (TRANSDERM-SCOP) patch 1.5 mg/72 hr (delivers [...] in the MR contrast administration guidelines link. PAST HISTORY: PAST MEDICAL HISTORY Diagnosis Date Abdominal pain, left lower quadrant Actinic keratosis Allergic rhinitis, cause unspecified Allergic rhinitis Anemia, unspecified type Arthritis Benign neoplasm of rectum and anal canal Bilateral lower extremity edema BPH (benign prostatic hyperplasia) Elevated PSA Dr Mckeon Family history of malignant neoplasm of prostate 02/13/2017 Gastroesophageal reflux disease with esophagitis 10/09/2016 Hemorrhoids, unspecified hemorrhoid type History of squamous cell carcinoma of skin 06/2017 left frontal scalp Iron deficiency anemia, unspecified Prostate cancer (HCC) Dr. 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 Verbal informed consent obtained for exam below: Constitutional: In no acute distress. Respiratory: Normal respiratory effort without use of accessory muscles. Cardiovascular: Regular rate Gastrointestinal: Nondistended DATA: Clinic: URINALYSIS: GLUCOSE UA (POCT) Negative 12/01/2024 BILIRUBIN UA (POCT) Negative 12/01/2024 KETONE UA (POCT) Negative 12/01/2024 SPECIFIC GRAVITY UA (POCT) 1.015 12/01/2024 HEMOGLOBIN/BLOOD UA (POCT) Negative 12/01/2024 PH UA (POCT) 7.0 12/01/2024 PROTEIN UA (POCT) Negative 12/01/2024 UROBILINOGEN UA (POCT) 0.2 12/01/2024 NITRITE UA (POCT) Negative 12/01/2024 LEUKOCYTES UA (POCT) Negative 12/01/2024 COLOR UA (POCT) Yellow 12/01/2024 CLARITY UA (POCT) Clear 12/01/2024 Laboratory: Creatinine Date Value Ref Range Status 12/01/2024 0.93 0.73 - 1.22 mg/dL Final 11/02/2024 0.92 0.73 - 1.22 mg/dL Final 10/22/2024 0.81 0.73 - 1.22 mg/dL Final 09/30/2024 1.16 0.73 - 1.22 mg/dL Final Cultures: No data to display Susceptibility Tests - Past 1 Year No results found for the last 365 days. PSA: PSA (ng/mL) Date Value 11/02/2024 <0.02 09/30/2024 <0.02 08/11/2024 <0.02 06/16/2024 <0.02 05/28/2021 2.22 03/28/2021 29.34 03/13/2021 24.8 01/18/2020 2.52 Labs: (Today) Urinalysis: Normal; no sign of bacteria (11/02) PSA: Undetectable DISCUSSIONS: We discussed your prostate cancer and related treatments: - Your PSA levels remain undetectable, which is excellent. Your most recent PSA test from today is still processing, but your previous result from November 02 was undetectable. - You received your Aranesp injection today. You mentioned feeling unwell for 4-5 days after these injections, which is a known side effect. Please continue to monitor how you feel after each injection and let us know if your symptoms worsen or change. - Continue taking abiraterone acetate (immunotherapy) as prescribed. We discussed your history of sepsis and recent hospitalizations: - You have been hospitalized twice in the last three months for sepsis and septic shock. While the cause remains unclear, your urine tests, including today s sample, show no signs of infection or bacteria. We will continue monitoring this closely. We discussed your urinary symptoms and tamsulosin: - You have been off tamsulosin for 4-5 days and are considering discontinuing it to see if there is any noticeable difference in your symptoms. This is a reasonable plan, as tamsulosin is less effective in prostate cancer patients compared to those with benign prostatic hyperplasia (BPH). - If you decide to restart tamsulosin, please send me a [employer] message, and I can send in a refill for you. We discussed your general health and follow-up: - Your urine test today was normal, and no changes to your current medications or treatments are needed at this time. - We will continue with annual checkups, as your blood work is being monitored regularly through your other providers. - Please continue seeing Dr. Villarreal as part of your care team. I will send an update from today s visit to their office. If you have any concerns or decide to restart tamsulosin, please send me a [employer] message. We discussed concerning signs and symptoms and patient knows to report these immediately. If unable to reach their urologist, patient knows to report to emergency department for evaluation. Recording using [employer] software for draft documentation of the visit was discussed with the patient/authorized collections representative; all questions welcomed and answered. Patient/authorized collections representative agreed to proceed I have reviewed the problem list, family history, and social history documented by my ancillary staff. Arsalan Castro MD Staff Urologist Office [1] Social History Tobacco Use Smoking status: Former Current packs/day: 0.00 Average packs/day: 0.3 packs/day for 2.5 years (0.6 ttl pk-yrs) Types: Cigarettes Start date: 01/13/1971 Quit date: 07/13/1973 Years since quittin.4 Smokeless tobacco: Never Tobacco comments: In college Vaping Use Vaping status: Never Used Substance Use Topics Alcohol use: Yes Alcohol/week: 6.0 standard drinks of alcohol Types: 6 Cans of Beer (12oz) per week Comment: occasionally Drug use: No documented in this encounter [facility] 12-01-2024 Note HNO ID: [id number] Author: LORIN ZHANG LPN Service: ? Author Type: Licensed Nurse Type: Progress Notes Filed: 12/01/2024 16:34 Note Text: Patient here for injection of Aranesp. Given SQ in right arm. Patient tolerated well. Lorin Zhang LPN [facility] 12-01-2024 History of Presen t illness Narrative Patient here for injection of Aranesp. Given SQ in right arm. Patient tolerated well. Lorin Zhang LPN documented in this encounter [facility] 11-30-2024 Telephone encounter Note LVM and sent mychart for pt to schedule MRI- will call again. [facility] 11-30-2024 Miscellaneous Notes LVM and sent mychart for pt to schedule MRI- will call again. MRI order needs to com from [facility]istic Associate Abigail Ferrer LPN Please place order for MRI Please fax results of MRI to his ep technologist. He should be seen to evaluate the scalp wound by dermatology. Needs repeat MRI in about 8 weeks. Bashir Killian DO documented in this encounter [facility] 11-26-2024 Instructions Nilay Ramirez MD - 11/26/2024 10:14 AM EDT - You do not need to start any antibiotics at home right now. - Monitor for any new fever, chills, severe weakness, or feeling unusually unwell. Seek medical care immediately if these symptoms occur, as infections can develop quickly. documented in this encounter [facility] 11-26-2024 History of Presen t illness Narrative Luther Castillo is a 69 year old man being evaluated for treatment of acalculous cholecystitis. Our opinion is requested by Dr. Arsalan Lilly. Our findings and recommendations will be communicated through the shared medical record or by letter through US mail. Recording using [employer] software for draft documentation of the visit was discussed with the patient/authorized collections representative; all questions welcomed and answered. Patient/authorized collections representative agreed to proceed present throughout Records reviewed Also called directly to [facility] to get faxed results HPI: Luther Castillo is a 69-year-old right handed former [employer] employee with a history of stage IV prostate cancer with bone metastasis and chronic anemia, presenting for evaluation of gallbladder issues and a non-healing scalp wound. Luther was hospitalized at [facility] on September 18 2024 for 4 nights due to sepsis and [...] pelvis on September 19, 2024. This demonstrated calcified stone within the gallbladder some ascites possible inflammation HIDA scan abdomen. The patient underwent a right upper quadrant ultrasound on September 21, 2024. This said heterogeneous echotexture of the liver and edematous anterior gallbladder wall measuring 5 cm. Received IV PIP tazobactam then discharged on oral cefdinir for total of 10 days Did well up until 10/15/2024 admitted again with fevers blood cultures on admisison grew Streptococcus anginosus susceptible to ampicillin 2D echo did not show any evidence of valvular disease was discharged on Augmentin for 10 days which he completed Currently afebrile Luther also reports a non-healing scalp wound following Mohs surgery 6 months ago. He has been receiving treatment at the wound center in [place] and seen earlier today by dermatology he mentions that the wound has not shown significant improvement and is considering a skin graft In regards to prostate cancer PSA rise from 2 in 01/2020 to [...] Most recent PSA 0.07 ng/mL on 08/24/2021. Metastatic Prostate Cancer: - Undergoing immunotherapy; reports weight loss from 165 lbs to 140 lbs since starting treatment. - Metastatic lesions in bones, including left arm. - PSA level currently at 0.02. - Receives Aranesp injections for anemia; experiences weakness and malaise post-injection. PSA History (ng/mL): 08/24/2021 0.07 Early Zytiga/Prednisone [...] Father age 91 Sister Alive Sister Alive [facility] MGF (Not Specified) PGF Son Alive Son [...] daily. Allergies: Patient has no known allergies. Constitutional: (+) weight loss Skin: (-) wound drainage, (-) skin erythema Psychiatric: (+) anxiety PHYSICAL EXAM: There were no vitals taken for this visit. GENERAL APPEARANCE: Patient in no acute distress thin SKIN: Skin color, texture, turgor normal. Circular lesion scalp minimal drainage no redness. HEAD/SINUSES: No significant findings. OROPHARYNX: no thrush or oral lesion LUNGS: clear to auscultation HEART: RRR no murmurs appreciated ABDOMEN: Soft, non tender, ND EXTREMITIES: No edema or tenderness: NEURO: Awake, alert and oriented x3 gait stable flat-footed extraocular muscles intact Personally reivewed imaging studies, lab results, and microbiology results. Immunization History Administered Date(s) Administered COVID-19 original vaccine, full dose, monovalent (MODERNA) 05/26/2020 06/23/2020 02/22/2021 11/22/2021 01/14/2023 COVID-19 vaccine, age 12+ yr (MODERNA) 01/16/2023 01/09/2024 influenza (HD-IIV3) vaccine, age 65+ yr, high dose, trivalent, PF (FLUZONE HIGH-DOSE) 12/15/2018 12/26/2020 01/09/2024 influenza (HD-IIV4) vaccine, age 65+ yr, high dose, quadrivalent, PF (FLUZONE HIGH-DOSE) 12/08/2019 12/26/2020 influenza (IIV3) vaccine, age 6 mo - 64 yr, trivalent (AFLURIA, FLULAVAL, FLUVIRIN, FLUZONE) 12/17/2016 influenza (IIV4) vaccine, age 6 mo - 64 yr, quadrivalent (AFLURIA, FLULAVAL, FLUZONE) 12/07/2015 influenza (IIV4) vaccine, age 6 mo - 64 yr, quadrivalent, PF (AFLURIA, FLUARIX, FLULAVAL, FLUZONE) 11/24/2015 12/17/2016 influenza (aIIV4) vaccine, age 65+ yr, quadrivalent, PF (FLUAD QUAD) 01/20/2022 12/25/2022 influenza (ccIIV4) vaccine, age 6+ mo, quadrivalent, PF (FLUCELVAX) 01/28/2018 12/15/2018 influenza vaccine, unspecified formulation 12/26/2010 novel influenza (J4X1-23) vaccine, PF 04/05/2009 pneumococcal conjugate (PCV13) vaccine, 13 valent (PREVNAR 13) 10/12/2018 pneumococcal conjugate (PCV20) vaccine, 20 valent (PREVNAR 20) 06/19/2021 pneumococcal polysaccharide (PPV23) vaccine, 23 valent (PNEUMOVAX 23) 01/11/2016 respiratory syncytial virus (RSV) vaccine, adjuvanted (AREXVY) 03/19/2023 04/23/2024 tetanus diphtheria pertussis (Tdap) vaccine, age 7+ yr (ADACEL, BOOSTRIX) 01/21/2008 09/23/2022 zoster (RZV) vaccine, recombinant (SHINGRIX) 12/08/2019 02/16/2020 CBC with diff: WBC 5.54 11/02/2024 RBC 3.44 11/02/2024 Hemoglobin 8.6 11/02/2024 Hematocrit 27.7 11/02/2024 MCV 80.5 11/02/2024 MCH 25.0 11/02/2024 MCHC 31.0 11/02/2024 RDW-CV 20.0 11/02/2024 Platelet Count 210 11/02/2024 MPV 8.3 11/02/2024 Neut% 42.9 11/02/2024 Lymph% 45.8 11/02/2024 Fillmore% 7.4 11/02/2024 Eosin% 3.1 11/02/2024 Baso% 0.4 11/02/2024 Abs Neut (ANC) 2.38 11/02/2024 Abs Fillmore 0.41 11/02/2024 Abs Eosin 0.17 11/02/2024 Abs Baso <0.03 11/02/2024 CMP: Glucose 99 11/02/2024 BUN 23 11/02/2024 Creatinine 0.92 11/02/2024 Sodium 138 11/02/2024 Potassium 4.0 11/02/2024 Chloride 103 11/02/2024 CO2 22 11/02/2024 Protein, Total 6.8 10/22/2024 Albumin 3.8 10/22/2024 Calcium 9.1 11/02/2024 Alkaline Phosphatase 148 10/22/2024 Bilirubin, Total 0.7 10/22/2024 AST 23 10/22/2024 ALT 32 10/22/2024 Surgical pathology Prostate bx 04/10/2021: FINAL DIAGNOSIS A. PROSTATE, BIOPSY, RIGHT BASE: Prostatic adenocarcinoma, Nowata score 3+4=7 (Grade group 2), involving 60% [...] (3 mm tumor length). - Percentage of Nowata pattern 4 = 5%. - Cribriform morphology is absent. D. PROSTATE, BIOPSY, RIGHT LATERAL BASE: High-grade prostatic intraepithelial neoplasia. E. PROSTATE, BIOPSY, RIGHT LATERAL MID: Prostatic adenocarcinoma, Nowata score 3+4=7 (Grade group 2), involving 85% [...] Cribriform pattern 4: Present Intraductal carcinoma: Absent Imaging reviewed Transthoracic echo 10/18/2024 mild aortic valve calcification no other valvular disease Prior echo August 2024 no change Ultrasound of spleen 10/22/2024 liver mild cyst 10/21/2024 MRI brain negative 10/15/2024 CT abdomen pelvis mildly enlarged prostate with calcification no obvious lymph nodes scattered sclerotic lesions in bones consistent with metastatic disease no gallbladder edema no ascites spleen unremarkable IVC unremarkable gallbladder with stones CT abdomen 09/21/2024 gallbladder thickening especially anterior aspect Micro: called micro lab Smiley ([place] [phone]) 2024 blood culture polymicrobial Heamphilus parainfluenza and strep intermedius (1 set) Blood cultures 10/15/2024 strep intermediate single set susceptible to amoxicillin Urine culture 10/15 no growth A/P: Recurrent Sepsis: - Two episodes of sepsis requiring hospitalization in September and October 2024. - First episode: [place] weak and unwell, unable to stand; no fevers, chills, or abdominal pain reported. - Blood cultures grew Haemophilus and Streptococcus; gallbladder imaged but not aspirated and suggestion of acute cholecystitis no HIDA done - Treated with a 10-day course of oral antibiotics cefdinir - Second episode: Occurred 3 weeks after completing antibiotics; experienced severe chills and inability to get out of bed. - Hospitalized for 4 days; blood cultures positive again. For strep anginosus - Treated with antibiotics; currently 9 days off antibiotics and feeling well but anxious about recurrence. - No current symptoms of pain or diarrhea; weight stable at 140 lbs. No obvious endovascular focus sequential transthoracic echo unremarkable currently afebrile Cannot exclude potential source from scalp do believe initial episode was likely related to gallbladder Ongoing immunotherapy for metastatic prostate cancer may increase susceptibility to infection. - - Advised patient to maintain a low threshold for seeking immediate medical attention if symptoms of infection recur, given rapid onset of previous episodes. Will provide 7-day course of Augmentin to have available if cannot get to urgent care If another episode we will reevaluate and consider daily prophylaxis Explained to patient and in detail and questions answered. I spent a total of 65 minutes on the date of the service which included preparing to see the patient, [id number] patient care, completing clinical documentation, obtaining and/or reviewing separately obtained history, performing a medically appropriate examination, counseling and educating the patient/family/caregiver, ordering medications, tests, or procedures, communicating with other HCPs (not separately reported), independently interpreting results (not separately reported), communicating results to the patient/family/caregiver, and care coordination (not separately reported). Nilay Ramirez MD documented in this encounter [facility] 11-26-2024 Note [facility] 11-26-2024 Note [facility] 11-26-2024 History of Presen t illness Narrative Tobacco Use: Types: Cigarettes Was smoking cessation packet given? N/A - Patient is a non-smoker or quit >1 year ago. Was a referral initiated?N/A Patient is a non-smoker Images from the original note were not included. SECTION OF FACIAL PLASTIC AND RECONSTRUCTIVE SURGERY Head [facility]ck [place], [facility] Follow up Evaluation Date of service: 11/26/2024 Luther Castillo is a 69 year old male who presents with a chief complaint of scalp defect. Interval History: The patient is a 69-year-old male presenting for follow-up 3 weeks after Restrata placement. He is unsure if the graft looks healthy. They have been keeping it moistened and covered. Exam: General: No acute distress. HEENT: Scalp with exposed bone, graft sloughed off. Impression/Plan: # Surgical followup visit (Z09) Patient seen 3 weeks after Restrata placement; graft has sloughed off, exposing unhealthy bone. - Discussed surgical options including rotational flaps, periosteal elevation and advancement, skin grafting, and possible reapplication of Integra or Restrata, with acknowledgment of the challenges posed by tight scalp tissue. - Plan to move surgery date up to next week if possible. Linden Mcguire MD, FACS Facial Plastic and Reconstructive Surgery [facility] Recording using [employer] software for draft documentation of the visit was discussed with the patient/authorized collections representative; all questions welcomed and answered. Patient/authorized collections representative agreed to proceed documented in this encounter [facility] 11-26-2024 Note [facility] 11-17-2024 Telephone encounter Note Scheduled for December 01 at 1:45 pm. [facility] 11-17-2024 Miscellaneous Notes Scheduled for December 01 at 1:45 pm. Patient called and needs a Rx renewed but needs to be seen in the office prior, could you please call and schedule an appointment for this patient? Thanks Humphrey Gerber MA November 17, 2024 1:15 PM documented in this encounter [facility] 11-17-2024 Telephone encounter Note Patient called and needs a Rx renewed but needs to be seen in the office prior, could you please call and schedule an appointment for this patient? Thanks Humphrey Gerber MA November 17, 2024 1:15 PM [facility] 11-15-2024 Telephone encounter Note Left voicemail for patient stating he would need to call the office for an appointment before we are able to refill any medications. [facility] 11-15-2024 Miscellaneous Notes Left voicemail for patient stating he would need to call the office for an appointment before we are able to refill any medications. Pt has not been seen since 2022. He is requesting med refill. Pt saw Gloria when he was in [place] so pt may want to see someone up there? Please call to set up an appt. Thank you, Gerda Robles MA documented in this encounter [facility] 11-15-2024 Telephone encounter Note Please send to Rudy. Sahara Mcneill LPN [facility] 11-15-2024 Miscellaneous Notes Please send to Rudy. Sahara Mcneill LPN documented in this encounter [facility] 11-12-2024 Note [facility] 11-12-2024 Note [facility] 11-11-2024 Telephone encounter Note Pt has not been seen since 2022. He is requesting med refill. Pt saw Gloria when he was in [place] so pt may want to see someone up there? Please call to set up an appt. Thank you, Gerda Robles MA [facility] 11-03-2024 Nurse Note Nursing Progress Note Patient Name: Luther Castillo Patient Location: [id number]/[id number] ____ Daily Note: 1110 condition stable. Tolerates po intake. Verbalizes understanding of dc instructions with @ bedside. This note was completed by: Marlys Donaldson [facility] 11-03-2024 Nurse Note Nursing Progress Note Patient Name: Luther Castillo Patient Location: [id number]/[id number] ____ Daily Note: 1110 condition stable. Tolerates po intake. Verbalizes understanding of dc instructions with @ bedside. This note was completed by: Marlys Donaldson documented in this encounter [facility] 11-03-2024 Hospital Discharg e instructions Linden Mcguire MD - 11/03/2024 10:18 AM EDT At-Home Instructions Facial Plastic Surgery The following instructions will help you know what to expect in the days following your surgery. Do not, however, hesitate to call if you have any questions or concerns. Phone number to call for any concerns: with instructions to ask for the ENT resident cleaning professional Activities Avoid strenuous activity for 1 week. Diet Normal Pain Control A prescription for pain medication will be given to you to take home. Driving a car or any potentially dangerous activity is to be avoided because the pain medication can alter your performance. General Guidelines: Try Tylenol (650 mg every 4 hours as needed for pain) first. If your pain is uncontrolled by Tylenol alone, then use any narcotic pain medications that may have been prescribed for you, but attempt to use these as infrequently as possible to achieve adequate control of your pain. Read the instructions provided with your prescription medications carefully because many prescription medications also contain Tylenol (325 mg per pill). You should not to take more that 1,000 mg of Tylenol per dose or 4,000 mg of Tylenol per day. Exceeding those doses may result in serious health problems. Do not drive within 24 hours of taking narcotic medication, this is unsafe and illegal. If you become constipated while taking narcotic pain medication please use Colace or Miralax (available over the counter). Be cautious when taking narcotic pain medication with other sedating medications such as anxiety medications, sleeping pills, or epilepsy medications; this may lead to confusion or excessive sedation. You can also take ibuprofen/Motrin/Advil (over the counter, 600 mg as needed every 6 hours) in addition to Tylenol or prescription pain medication for pain control. Do not take more than 2400 mg in any 24 hour period. Wound Care Keep dressing in place until follow up Medications After Surgery As previously stated, you will be given a narcotic pain prescription for pain control prior to being discharged from the ambulatory surgery center. Antibiotics are frequently prescribed after surgery. It is important that you take all of the medication prescribed even though you may feel well. Avoid taking pain medications and antibiotics at the same time as the combination may cause stomach upset. Try to eat when taking these medications to further reduce stomach irritation. Special Instructions Do not drive, work with heavy equipment, or sign legal documents for 24 hours. Rest at home for 24 hours following general anesthesia. Do not drink alcoholic beverages or take sleeping pills for the next 18 hours. You will need to follow-up with Dr. Mcguire in approximately 1 week. Please call the office at [phone] to schedule and if you have any questions or concerns. If there is an emergency or you need to speak with somebody after hours please call [phone] and ask to speak with the ENT resident cleaning professional. Do not hesitate to call if you have any questions or concerns. Office of Dr. Mcguire documented in this encounter [facility] 11-03-2024 Note [facility] 11-03-2024 Surgery Surgical operation note Date: 11/03/2024 Incision/Procedure Start Time: 9:10 AM Incision Close/Procedure End Time: 9:59 AM Attending Surgeon: Linden Mcguire MD Preoperative Diagnosis: 1. Scalp wound, open 2. History of skin cancer of scalp Postoperative Diagnosis: 1. Same Procedure Performed: 1. Excision of outer table of cranium with cutting drill to diploic layer 2. Sharp preparation of wound bed with excision of scar in preparation for graft 3. Placement of skin substitute graft, Restrata, 5 x 5 cm Specimens: No specimens. Complications: No complications. Blood loss: Minimal Anesthesia: General Implanted Devices: Implant Name Type Inv. Item Serial No. Graphic Artist Lot No. LRB No. Used Action RESTRATA WOUND MATRIX 2IN X 2IN Implant [id number] N/A 1 Implanted Indications: 69 year old male with a non-healing scalp wound of her right vertex scalp, measuring 3 x 3 cm; therefore, the above-mentioned procedures were planned and performed. Details of the procedures, including all risks, benefits, and alternatives, were discussed with the patient, who expressed understanding. All questions were answered. Informed consent was obtained. Description of Procedure: Patient was taken to the operating room. Upon arrival, a timeout was performed with all operating room staff, confirming the patient, procedure, and overall care plan. The patient was then transferred to the operating room table and placed in a supine position. General anesthesia was induced and the patient was intubated without issue. The patient was then turned to the surgical team. The patient was prepped and draped in a sterile fashion. A second timeout was then performed, confirming the patient, procedure, and overall care plan. The surgical site was marked and lidocaine with epinephrine was injected into the soft tissues of the surgical site. The wound of the left scalp was inspected. There exposed, dry, non-healing bone with healed wound edges/scar. In order to prepare the site for graft placement, the scar at the edge of the wound was sharply excised to create raw edges to assist with healing. Total area was 2 sq cm. Following this, the outer table of the cranium was removed down to diploic layer. The outer cortex was thick and very dry, requiring a more extensive out table drilling with a cutting alexx to get to bleeding bone. Total area of excised outer table was 3 x 3 cm. Once this was accomplished, the surrounding soft tissue was undermined to make room for the graft. The Restrata 5 x 5 cm graft was underlayerd over the bone and under the soft tissue to maximize contact healthy tissue to induce granulation. This was suture into place using chromic sutures. A multilayer surgilube, adaptic, and xeroform dressing was then placed and secured with Prolene sutures. He was awakened and extubated uneventfully. He was taken to the recovery room in good condition. Linden Mcguire MD Facial Plastic and Reconstructive Surgery [facility] 11-03-2024 Surgical operatio n note Date: 11/03/2024 Incision/Procedure Start Time: 9:10 AM Incision Close/Procedure End Time: 9:59 AM Attending Surgeon: Linden Mcguire MD Preoperative Diagnosis: 1. Scalp wound, open 2. History of skin cancer of scalp Postoperative Diagnosis: 1. Same Procedure Performed: 1. Excision of outer table of cranium with cutting drill to diploic layer 2. Sharp preparation of wound bed with excision of scar in preparation for graft 3. Placement of skin substitute graft, Restrata, 5 x 5 cm Specimens: No specimens. Complications: No complications. Blood loss: Minimal Anesthesia: General Implanted Devices: Implant Name Type Inv. Item Serial No. Graphic Artist Lot No. LRB No. Used Action RESTRATA WOUND MATRIX 2IN X 2IN Implant [id number] N/A 1 Implanted Indications: 69 year old male with a non-healing scalp wound of her right vertex scalp, measuring 3 x 3 cm; therefore, the above-mentioned procedures were planned and performed. Details of the procedures, including all risks, benefits, and alternatives, were discussed with the patient, who expressed understanding. All questions were answered. Informed consent was obtained. Description of Procedure: Patient was taken to the operating room. Upon arrival, a timeout was performed with all operating room staff, confirming the patient, procedure, and overall care plan. The patient was then transferred to the operating room table and placed in a supine position. General anesthesia was induced and the patient was intubated without issue. The patient was then turned to the surgical team. The patient was prepped and draped in a sterile fashion. A second timeout was then performed, confirming the patient, procedure, and overall care plan. The surgical site was marked and lidocaine with epinephrine was injected into the soft tissues of the surgical site. The wound of the left scalp was inspected. There exposed, dry, non-healing bone with healed wound edges/scar. In order to prepare the site for graft placement, the scar at the edge of the wound was sharply excised to create raw edges to assist with healing. Total area was 2 sq cm. Following this, the outer table of the cranium was removed down to diploic layer. The outer cortex was thick and very dry, requiring a more extensive out table drilling with a cutting alexx to get to bleeding bone. Total area of excised outer table was 3 x 3 cm. Once this was accomplished, the surrounding soft tissue was undermined to make room for the graft. The Restrata 5 x 5 cm graft was underlayerd over the bone and under the soft tissue to maximize contact healthy tissue to induce granulation. This was suture into place using chromic sutures. A multilayer surgilube, adaptic, and xeroform dressing was then placed and secured with Prolene sutures. He was awakened and extubated uneventfully. He was taken to the recovery room in good condition. Linden Mcguire MD Facial Plastic and Reconstructive Surgery [facility] documented in this encounter [facility] 11-03-2024 History and physical note History and Physical Update Day of Surgery DOS: 11/03/24 Interval History: No changes to condition Exam: Unchanged Assessment/Plan: Ready for surgery as planned Linden Mcguire MD [facility] 11-03-2024 History and physical note History and Physical Update Day of Surgery DOS: 11/03/24 Interval History: No changes to condition Exam: Unchanged Assessment/Plan: Ready for surgery as planned Linden Mcguire MD documented in this encounter [facility] 11-02-2024 Telephone encounter Note Requested Prescriptions Pending Prescriptions Disp Refills predniSONE (DELTASONE) 5 mg tablet 60 tablet 2 Sig: Take 1 tablet by mouth two times a day. Sahara Mcneill LPN [facility] 11-02-2024 Miscellaneous Notes Requested Prescriptions Pending Prescriptions Disp Refills predniSONE (DELTASONE) 5 mg tablet 60 tablet 2 Sig: Take 1 tablet by mouth two times a day. Sahara Mcneill LPN documented in this encounter [facility] 11-02-2024 Note [facility] 11-02-2024 History of Presen t illness Narrative aranesp injection administered, right arm,tolerated well, no immediate adverse reactions noted. See OV notes Abigail Ferrer LPN documented in this encounter [facility] 11-02-2024 Note [facility] 11-02-2024 History of Presen t illness Narrative HISTORY OF PRESENT ILLNESS: Luther Castillo is a [address] Lopez's previous note: H/o refractory anemia who present [...] electrophoresis negative. Feel poorly after each aranesp Was in [facility] early September with bacteremia, source unclear possible gall bladder. Needed a blood transfusion. Also with headaches, had MRI brain, showed possible bone edema adjcant to scalp Moh's surgery he has earlier in 2024. Interval Hx: Pt presents today for follow up and lab review with possible aranesp. Notes recent admission to [facility] for sepsis. No records available at this time but patient notes that etiology of infection remains unclear. He was referred to ID for further management. Believes infection 2/2 to gall bladder again however not definitive. Still feels like something is not quite right in his abd but no specific issues. Denies any changes in bowel or bladder habits. No bleeding. Denies fevers, chills or NS. No new lumps or bumps aches or pains. States that he does not feel well following aranesp injection. Generalized aches, fatigue. Lasts for about 3 - 4 days. ? If this was actually xgeva causing symptoms. Denies new aches or pains. No SOB, CP, or palpitations. Denies N/V/C/D. No changes in bowel or bladder habits. No hematuria. No rash or skin changes. Denies bleeding or bruising. Tolerable hot flashes. No drenching NS. No edema. CLINICAL IMPRESSION: Prostate cancer under good control, today's PSA pending. More anemic - discussed likely 2/2 infection and sepsis at this time. CKD grade 3a RECOMMENDATION/PLAN: 1. Anemia, ?renal effect, aranesp for hgb less than 10 2. Continue zytiga pred 3. Lupron as scheduled 4. D/c danosumab as he's been on it 3 years 5. Follow up with ID RTC as scheduled Advised to call with any questions or concerns in the meantime PAST MEDICAL HISTORY Diagnosis Date Abdominal pain, [...] deficiency anemia, unspecified Prostate cancer (HCC) Dr. 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 All systems reviewed on 11/02/2024 with pertinent positives and negatives as outlined in the interval history. PHYSICAL EXAMINATION: VITAL SIGNS: BP 129/79 Pulse 80 Temp 97.8 Wt 160 lb 8 oz (72.8kg) GENERAL APPEARANCE: Well appearing, in no acute distress, alert and oriented x3, well-hydrated, well nourished. CHEST: clear, equal bilaterally HEART: RRR Tee Ellis APRN.JOI I spent a total of 30 minutes on the date of the service which included preparing to see the patient, [id number] patient care, completing clinical documentation, obtaining and/or reviewing separately obtained history, performing a medically appropriate examination, counseling and educating the patient/family/caregiver, and ordering medications, tests, or procedures. Portions of this note including HPI, ROS, impression/plan may have been copied forward as to provide important historical information essential in contributing to medical decision making. Documentation has been reviewed and edited as necessary to support clinical decision making for today's visit and to reflect my own independent evaluation of this patient. documented in this encounter [facility] 10-29-2024 History of Presen t illness Narrative Radiology Service Progress Note PATIENT NAME: Luther Castillo DATE OF SERVICE: October 29, 2024 TIME: 1:44 PM PATIENT IDENTITY VERIFICATION COMPLETED USING TWO (2) IDENTIFIERS: Name and Date of confirmed by patient verbally. FALL SCREENING: Has the patient had 2 falls in the last year or 1 fall with injury or currently using an Ambulatory Assistive Device (Walker, Cane, Wheelchair, Crutches, etc.)? No PATIENT GENDER DATA: Assigned male at PATIENT RELEVANT IMPLANT DATA REVIEWED: Not Applicable PATIENT PRESENTS WITH AN IMPLANTABLE OR ATTACHED SOFTWARE QUALITY ANALYST: No RADIOLOGY DEPARTMENT: Ultrasound PERIPHERAL IV DATA: Not applicable SIGNED BY: LANETTE Ding October 29, 2024 1:44 PM documented in this encounter [facility] 10-29-2024 Note [facility] 10-28-2024 Telephone encounter Note Luther Castillo is a 69 year old male who is scheduled for Procedure(s): DEBRIDEMENT BONE W/ EPIDERMIS/DERMIS/ SUBCUTANEOUS TISSUE/ MUSCLE/FASCIA FIRST 20 SQ CM OR LESS (Bilateral) APPLICATION OF SKIN SUBSTITUTE GRAFT TO SCALP TOTAL WOUND SURFACE AREA UP TO 100 SQ CM FIRST 25 SQ CM OR LESS WOUND SURFACE AREA (Bilateral) at the request of Dr. Linden Mcguire at [facility] 11/03/2024. Carotid US ordered. [facility] 10-28-2024 Miscellaneous Notes Luther Castillo is a 69 year old male who is scheduled for Procedure(s): DEBRIDEMENT BONE W/ EPIDERMIS/DERMIS/ SUBCUTANEOUS TISSUE/ MUSCLE/FASCIA FIRST 20 SQ CM OR LESS (Bilateral) APPLICATION OF SKIN SUBSTITUTE GRAFT TO SCALP TOTAL WOUND SURFACE AREA UP TO 100 SQ CM FIRST 25 SQ CM OR LESS WOUND SURFACE AREA (Bilateral) at the request of Dr. Linden Mcguire at [facility] 11/03/2024. Carotid US ordered. documented in this encounter [facility] 10-28-2024 History and physical note Images from the original note were not included. [facility] HISTORY AND PHYSICAL EXAMINATION SERVICE DATE: 10/28/2024 SERVICE TIME: 9:00 AM PRIMARY CARE PHYSICIAN: Arsalan Lilly MD Recording using [employer] software for draft documentation of the visit was discussed with the patient/authorized collections representative; all questions welcomed and answered. Patient/authorized collections representative agreed to proceed Assessment Patient has the following medical conditions which may affect wendy-operative course: 1. Bruit of right carotid artery (R09.89) - Ordered carotid ultrasound to be performed before surgery if possible. 2. Malignant neoplasm of prostate (HCC) (C61) 3. 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 - Currently on immunotherapy: Elagard every 6 months, abiraterone, and prednisone. - Continue current treatment regimen. 4. 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 - Receiving Aranesp monthly when hemoglobin is below 10 g/dL. - Continue current treatment. 5. Cholangitis (HCC) (K83.09) - Recent hospitalization from October 15 to October 19 for septic shock; diagnosed with cholangitis. - Jaundice and elevated bilirubin levels noted; ultrasound did not show gallstones. - Blood culture showed Streptococcus intermedius. - Follow-up with infectious disease consult scheduled for November [address] Nilay Ramirez. - Complete course of Augmentin. 6. Personal history of tobacco use (Z87.891) - Former smoker; quit 50 years ago. 7. Mixed hyperlipidemia (E78.2) - Continue atorvastatin. 8. Gastroesophageal reflux disease with esophagitis, unspecified whether hemorrhage (K21.00) - Taking Tagamet once daily. - Continue current regimen. ANESTHESIA FINDINGS: Intubation History: No history of difficult intubation. No abnormal airway history Significant Anesthesia Considerations: none Airway History: No history of difficult airway No abnormal airway history Vega Activity Status Index: METS: Walk indoors, such as around the house (1.75 METs) Do light work around the house, such as dusting or washing dishes (2.70 METs) Take care of self; that is eating, dressing, bathing, using the toilet (2.75 METs) Walk a block or two on level ground (2.75 METs) Do moderate work around the house, such as vacuuming, sweeping floors, or carrying in groceries (3.50 METs) DASI Score: 13.45 Patient denies any chest pain or undue shortness of breath with the above physical activity. Clinical Frailty Scale: 4. Apparently vulnerable STOP-Bang Score: Patient over 50 years old Male patient Denies snoring loudly Denies feeling tired, fatigued, or sleepy during the daytime Has not been observed to stop breathing or choking/gasping during sleep Denies having high blood pressure BMI less than or equal to 35 kg/m^2 Does not have a large neck STOP-Bang Score: 2 [id number] Score: Age: 65-74 Sex: male CHF history: No Hypertension history: No Stroke/TIA/thromboembolism history: No Vascular disease history: No Diabetes history: No [id number] Score: 1 I - PHYSICAL EVALUATION AIRWAY Patient intubated: No. Tracheostomy tube not present Mallampati: I. TM distance: >3 FB. Neck ROM: full ROM without neurological symptoms. Mouth opening: adequate. Short neck: no. Thick neck: no Microretrognathia/Micronagthia/R ecessed Chin: No DENTAL Dental findings: teeth intact. Additional comments: +Crowns. II - ANESTHESIA PLAN Anesthetic plan additional comments: *PACC/TCI - anesthesia choice. Beta Jennifer Monitoring Plan Post Procedure Analgesic Plan Prepared for Surgery: optimally prepared for surgery, pending [see comment]. Anesthesia consult. Labs completed 10/22/2024. No EKG indicated for this procedure. CONSULTS: The following consults have been initiated at this time: anesthesia. Planned Anesthetic: anesthesia choice The Following Tests/Procedures Have Been Initiated: Orders Placed This Encounter amoxicillin-clavulanate potassium (AUGMENTIN) 875-125 mg per tablet REASON FOR VISIT: Luther Castillo is a 69 year old male who is scheduled for Procedure(s): DEBRIDEMENT BONE W/ EPIDERMIS/DERMIS/ SUBCUTANEOUS TISSUE/ MUSCLE/FASCIA FIRST 20 SQ CM OR LESS (Bilateral) APPLICATION OF SKIN SUBSTITUTE GRAFT TO SCALP TOTAL WOUND SURFACE AREA UP TO 100 SQ CM FIRST 25 SQ CM OR LESS WOUND SURFACE AREA (Bilateral) at the request of Dr. Linden Mcguire for consultation. My final recommendation will be communicated back to the requesting physician by way of shared medical record or letter. Subjective The patient has the following: COVID-19 Immunization Status This patient has no relevant Health Maintenance data. CHIEF COMPLAINT: HPI: Luther Castillo is a 69-year-old male with a history of metastatic prostate cancer, presenting for a preoperative evaluation prior to a scheduled skin graft on the scalp. Luther is scheduled for a skin graft on the scalp on the at [place], following a Mohs surgery for a rapidly recurring skin lesion. He is uncertain of the type of skin cancer but believes it may have been squamous cell carcinoma. Luther reports frequent cephalalgia and currently has the scalp wound covered with a bandage. He is not under active wound care but was referred for the skin graft after the ep technologist determined the wound would not heal on its own. He denies any other areas of concern on the skin. REVIEW OF SYSTEMS: GENERAL: Positive for weight loss, negative for malaise or fevers. HEENT: Positive for frequent headaches, negative for changes in vision or hearing, epistaxis, or other nasal problems. NECK: Negative for lumps, goiter, pain, or significant neck swelling. RESPIRATORY: Positive for shortness of breath with exertion, negative for cough. CARDIOVASCULAR: Positive for leg swelling, negative for chest pain, CHF, or palpitations. GI: Positive for mild abdominal pain and heartburn, negative for nausea, vomiting, diarrhea, blood in stool, or black stool. GENITOURINARY: Negative for dysuria, frequency, or incontinence. MUSCULOSKELETAL: Positive for back pain, negative for joint pain or swelling, or muscle pain. SKIN: Positive for a scalp lesion requiring a skin graft, negative for rash or itching. PSYCH: Negative for anxiety or depression. HEMATOLOGY/LYMPHOLOGY: No bleeding concerns. NEURO: Positive for headaches, negative for syncope, paralysis, seizures, or tremors. ENDOCRINE: Negative for polydipsia, increased thirst, or other endocrine symptoms. PAST MEDICAL HISTORY Diagnosis Date Abdominal pain, left lower quadrant Actinic keratosis Allergic rhinitis, cause unspecified Allergic rhinitis Anemia, unspecified type Arthritis Benign neoplasm of rectum and anal canal Bilateral lower extremity edema BPH (benign prostatic hyperplasia) Elevated PSA Dr Mckeon Family history of malignant neoplasm of prostate 02/13/2017 Gastroesophageal reflux disease with esophagitis 10/09/2016 Hemorrhoids, unspecified hemorrhoid type History of squamous cell carcinoma of skin 06/2017 left frontal scalp Iron deficiency anemia, unspecified Prostate cancer (HCC) Dr. 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 Seborrheic keratosis Vasovagal reaction 10/09/2016 PAST SURGICAL HISTORY Procedure Laterality Date APPENDECTOMY 02/05/2024 [facility] COLONOSCOPY 02/27/2022 COLONOSCOPY FLX DX W/COLLJ [...] shoulder subacromial decompression TONSILLECTOMY HX TONSILLECTOMY PRIMARY/SECONDARY Tonsillectomy FAMILY HISTORY Problem Relation Age of [...] date: 01/13/1973 Quit date: 07/13/1973 Years since quittin.3 Smokeless tobacco: Never Vaping Use Vaping status: Never Used Substance Use Topics Alcohol use: Not Currently Alcohol/week: 6.0 standard drinks of alcohol Types: 6 Cans of Beer (12oz) per week Comment: occasionally Drug use: No Prior to Admission medications as of 10/28/24 0900 Medication Sig Last Dose Taking amoxicillin-clavulanate potassium (AUGMENTIN) 875-125 mg per tablet Yes abiraterone 250 mg tablet TAKE 4 TABLETS ONCE DAILY ON AN EMPTY STOMACH 1 HOUR BEFORE OR 2 HOURS AFTER A MEAL Yes Ibuprofen 200 mg cap Take by mouth every 6 hours as needed. Yes predniSONE (DELTASONE) 5 mg tablet Take 1 tablet by mouth two times a day. Yes scopolamine (TRANSDERM-SCOP) patch 1.5 mg/72 hr (delivers 1 mg over 3 days) Apply 1 Patch as directed every 72 hours. Yes atorvastatin (LIPITOR) 20 mg tablet Take 1 tablet by mouth daily at bedtime. For cholesterol. Yes tamsulosin (FLOMAX) 0.4 mg Take 1 capsule by mouth once daily. Yes cimetidine (TAGAMET) 200 mg tablet Take 200 mg by mouth twice daily. Yes calcium carbonate/vitamin D3 (CALCIUM + D ORAL) Take 1 tablet by mouth twice daily. Yes leuprolide acetate (ELIGARD SUBCUTANEOUS) Inject subcutaneously once every 6 months. Yes dexAMETHasone (DECADRON) 4 mg tablet Take 1 tablet by mouth daily with breakfast. Take on mornings of injections Patient not taking: Reported on 10/28/2024 darbepoetin dagmar in albumn john (ARANESP INJECTION) by INJECTION(UNSPECIFIED PARENTERAL ROUTES) route every 4 weeks. PRN Patient not taking: Reported on 10/28/2024 iv contrast (will be provided with radiology [...] in the MR contrast administration guidelines link. Patient not taking: Reported on 10/28/2024 No medication comments found. ALLERGIES Allergen Reactions Ragweed Pollen Other: See Comments Watering/itchy eyes Objective PHYSICAL EXAM: GENERAL: NAD, alert and oriented. SKIN: Bandage intact to scalp lesion. HEAD: Normocephalic. EYES: PERRLA, EOMI, conjunctiva clear. EARS: External ears normal, canals clear. NOSE/SINUSES: Nares normal. Septum midline. OROPHARYNX: Lips, mucosa, and tongue normal, good dentition. No oral lesions noted. NECK: Supple, no lymphadenopathy, normal thyroid, carotid bruit noted on the right. LUNGS: Clear to auscultation bilaterally, no wheezes/rhonchi/rales. HEART: Regular rate and rhythm, no murmurs. No ectopy. EXTREMITIES: Left leg appears slightly larger than the right. Trace pedal edema bilaterally. No deformities, no skin discoloration. NEURO: Awake, alert and oriented x3, cranial nerves II-XII grossly intact, normal gait, no involuntary motions. PAIN ASSESSMENT: VITALS: BP 102/67 Pulse 90 Temp 97.8 Resp 20 Ht 5' 7 (1.70m) Wt 140 lb 6.9 oz (63.7kg) SpO2 99% BMI 21.99 kg/(m^2). Diagnostic tests reviewed for today's visit: Lab Value Units Date High Low HB 9.3 g/dL 10/22/2024 17.0 13.0 HCT 30.3 % 10/22/2024 51.0 39.0 WBC 5.51 k/uL 10/22/2024 11.00 3.70 PLT 199 k/uL 10/22/2024 400 150 NA 138 mmol/L 10/22/2024 144 136 K 3.8 mmol/L 10/22/2024 5.1 3.7 GLUC 104 mg/dL 10/22/2024 99 74 BUN 18 mg/dL 10/22/2024 24 9 CREAT 0.81 mg/dL 10/22/2024 1.22 0.73 PTSEC No results within date range. INR No results within date range. APTT No results within date range. ALT 32 U/L 10/22/2024 54 10 AST 23 U/L 10/22/2024 40 14 TBILI 0.7 mg/dL 10/22/2024 1.3 0.2 TSH No results within date range. Lab Value Units Date High Low HCGQT No results within date range. UHCG No results within date range. HCG, BODY* No results within date range. Lab Value Units Date High Low ABORHD No results within date range. ABSCREEN No results within date range. No results found for: HBA1C Recent Results (from the past 8760 hours) ECG COMPLETE Collection Time: 08/09/24 3:29 PM Result Value Ventricular Rate 95 Atrial Rate 95 P-R Interval 136 QRS Duration 76 QT Interval 360 QTC Calculation (Bazett) 452 Calculated P Throckmorton 61 Calculated R Throckmorton -32 Calculated T Throckmorton 62 Impression NORMAL SINUS RHYTHM ANTERIOR T WAVE ABNORMALITY ABNORMAL ECG Confirmed by MD JOZEF, QARAB ([id number]) on 08/10/2024 11:55:46 AM Recent Results (from the past 68036 hours) ECHO Collection Time: 08/26/24 9:21 AM Impression CONCLUSIONS: - Technically difficult exam due to body habitus. - Exam indication: Exam indication: Shortness of Breath - The left ventricle is normal in size. Left ventricular systolic function is normal. EF = 55 5% (2D biplane) Normal left ventricular diastolic function. - The right ventricle is normal in size. Right ventricular systolic function is normal. - There are no significant valvular abnormalities. - Exam was compared with the prior echocardiographic exam performed on 07/03/2023, no significant change. * * * Final * * * Stress test 11/12/2023: CONCLUSIONS: 1. SPECT Perfusion Study: Normal. 2. There is no scintigraphic evidence for inducible ischemia. 3. No evidence of scarred myocardium. 4. Left ventricle is normal in size. The left ventricle systolic function is normal. 5. This is a low risk scan. Gated Stress IR:3D LVEF % 74 Instructions Given to Patient: Instructions located in the after visit summary. Patient given verbal and written preop instructions and voices comprehension and compliance. SIGNATURE: TATE Nieves PATIENT NAME: Luther Castillo DATE: October 28, 2024 TIME: 9:00 AM PAGER/CONTACT #: [facility] 10-28-2024 History and physical note Images from the original note were not included. [facility] HISTORY AND PHYSICAL EXAMINATION SERVICE DATE: 10/28/2024 SERVICE TIME: 9:00 AM PRIMARY CARE PHYSICIAN: Arsalan Lilly MD Recording using [employer] software for draft documentation of the visit was discussed with the patient/authorized collections representative; all questions welcomed and answered. Patient/authorized collections representative agreed to proceed Assessment Patient has the following medical conditions which may affect wendy-operative course: 1. Bruit of right carotid artery (R09.89) - Ordered carotid ultrasound to be performed before surgery if possible. 2. Malignant neoplasm of prostate (HCC) (C61) 3. 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 - Currently on immunotherapy: Elagard every 6 months, abiraterone, and prednisone. - Continue current treatment regimen. 4. 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 - Receiving Aranesp monthly when hemoglobin is below 10 g/dL. - Continue current treatment. 5. Cholangitis (HCC) (K83.09) - Recent hospitalization from October 15 to October 19 for septic shock; diagnosed with cholangitis. - Jaundice and elevated bilirubin levels noted; ultrasound did not show gallstones. - Blood culture showed Streptococcus intermedius. - Follow-up with infectious disease consult scheduled for November [address] Nilay Ramirez. - Complete course of Augmentin. 6. Personal history of tobacco use (Z87.891) - Former smoker; quit 50 years ago. 7. Mixed hyperlipidemia (E78.2) - Continue atorvastatin. 8. Gastroesophageal reflux disease with esophagitis, unspecified whether hemorrhage (K21.00) - Taking Tagamet once daily. - Continue current regimen. ANESTHESIA FINDINGS: Intubation History: No history of difficult intubation. No abnormal airway history Significant Anesthesia Considerations: none Airway History: No history of difficult airway No abnormal airway history Vega Activity Status Index: METS: Walk indoors, such as around the house (1.75 METs) Do light work around the house, such as dusting or washing dishes (2.70 METs) Take care of self; that is eating, dressing, bathing, using the toilet (2.75 METs) Walk a block or two on level ground (2.75 METs) Do moderate work around the house, such as vacuuming, sweeping floors, or carrying in groceries (3.50 METs) DASI Score: 13.45 Patient denies any chest pain or undue shortness of breath with the above physical activity. Clinical Frailty Scale: 4. Apparently vulnerable STOP-Bang Score: Patient over 50 years old Male patient Denies snoring loudly Denies feeling tired, fatigued, or sleepy during the daytime Has not been observed to stop breathing or choking/gasping during sleep Denies having high blood pressure BMI less than or equal to 35 kg/m^2 Does not have a large neck STOP-Bang Score: 2 [id number] Score: Age: 65-74 Sex: male CHF history: No Hypertension history: No Stroke/TIA/thromboembolism history: No Vascular disease history: No Diabetes history: No [id number] Score: 1 I - PHYSICAL EVALUATION AIRWAY Patient intubated: No. Tracheostomy tube not present Mallampati: I. TM distance: >3 FB. Neck ROM: full ROM without neurological symptoms. Mouth opening: adequate. Short neck: no. Thick neck: no Microretrognathia/Micronagthia/R ecessed Chin: No DENTAL Dental findings: teeth intact. Additional comments: +Crowns. II - ANESTHESIA PLAN Anesthetic plan additional comments: *PACC/TCI - anesthesia choice. Beta Jennifer Monitoring Plan Post Procedure Analgesic Plan Prepared for Surgery: optimally prepared for surgery, pending [see comment]. Anesthesia consult. Labs completed 10/22/2024. No EKG indicated for this procedure. CONSULTS: The following consults have been initiated at this time: anesthesia. Planned Anesthetic: anesthesia choice The Following Tests/Procedures Have Been Initiated: Orders Placed This Encounter amoxicillin-clavulanate potassium (AUGMENTIN) 875-125 mg per tablet REASON FOR VISIT: Luther Castillo is a 69 year old male who is scheduled for Procedure(s): DEBRIDEMENT BONE W/ EPIDERMIS/DERMIS/ SUBCUTANEOUS TISSUE/ MUSCLE/FASCIA FIRST 20 SQ CM OR LESS (Bilateral) APPLICATION OF SKIN SUBSTITUTE GRAFT TO SCALP TOTAL WOUND SURFACE AREA UP TO 100 SQ CM FIRST 25 SQ CM OR LESS WOUND SURFACE AREA (Bilateral) at the request of Dr. Linden Mcguire for consultation. My final recommendation will be communicated back to the requesting physician by way of shared medical record or letter. Subjective The patient has the following: COVID-19 Immunization Status This patient has no relevant Health Maintenance data. CHIEF COMPLAINT: HPI: Luther Castillo is a 69-year-old male with a history of metastatic prostate cancer, presenting for a preoperative evaluation prior to a scheduled skin graft on the scalp. Luther is scheduled for a skin graft on the scalp on the at [place], following a Mohs surgery for a rapidly recurring skin lesion. He is uncertain of the type of skin cancer but believes it may have been squamous cell carcinoma. Luther reports frequent cephalalgia and currently has the scalp wound covered with a bandage. He is not under active wound care but was referred for the skin graft after the ep technologist determined the wound would not heal on its own. He denies any other areas of concern on the skin. REVIEW OF SYSTEMS: GENERAL: Positive for weight loss, negative for malaise or fevers. HEENT: Positive for frequent headaches, negative for changes in vision or hearing, epistaxis, or other nasal problems. NECK: Negative for lumps, goiter, pain, or significant neck swelling. RESPIRATORY: Positive for shortness of breath with exertion, negative for cough. CARDIOVASCULAR: Positive for leg swelling, negative for chest pain, CHF, or palpitations. GI: Positive for mild abdominal pain and heartburn, negative for nausea, vomiting, diarrhea, blood in stool, or black stool. GENITOURINARY: Negative for dysuria, frequency, or incontinence. MUSCULOSKELETAL: Positive for back pain, negative for joint pain or swelling, or muscle pain. SKIN: Positive for a scalp lesion requiring a skin graft, negative for rash or itching. PSYCH: Negative for anxiety or depression. HEMATOLOGY/LYMPHOLOGY: No bleeding concerns. NEURO: Positive for headaches, negative for syncope, paralysis, seizures, or tremors. ENDOCRINE: Negative for polydipsia, increased thirst, or other endocrine symptoms. PAST MEDICAL HISTORY Diagnosis Date Abdominal pain, left lower quadrant Actinic keratosis Allergic rhinitis, cause unspecified Allergic rhinitis Anemia, unspecified type Arthritis Benign neoplasm of rectum and anal canal Bilateral lower extremity edema BPH (benign prostatic hyperplasia) Elevated PSA Dr Mckeon Family history of malignant neoplasm of prostate 02/13/2017 Gastroesophageal reflux disease with esophagitis 10/09/2016 Hemorrhoids, unspecified hemorrhoid type History of squamous cell carcinoma of skin 06/2017 left frontal scalp Iron deficiency anemia, unspecified Prostate cancer (HCC) Dr. 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 Seborrheic keratosis Vasovagal reaction 10/09/2016 PAST SURGICAL HISTORY Procedure Laterality Date APPENDECTOMY 02/05/2024 [facility] COLONOSCOPY 02/27/2022 COLONOSCOPY FLX DX W/COLLJ [...] date: 01/13/1973 Quit date: 07/13/1973 Years since quittin.3 Smokeless tobacco: Never Vaping Use Vaping status: Never Used Substance Use Topics Alcohol use: Not Currently Alcohol/week: 6.0 standard drinks of alcohol Types: 6 Cans of Beer (12oz) per week Comment: occasionally Drug use: No Prior to Admission medications as of 10/28/24 0900 Medication Sig Last Dose Taking amoxicillin-clavulanate potassium (AUGMENTIN) 875-125 mg per tablet Yes abiraterone 250 mg tablet TAKE 4 TABLETS ONCE DAILY ON AN EMPTY STOMACH 1 HOUR BEFORE OR 2 HOURS AFTER A MEAL Yes Ibuprofen 200 mg cap Take by mouth every 6 hours as needed. Yes predniSONE (DELTASONE) 5 mg tablet Take 1 tablet by mouth two times a day. Yes scopolamine (TRANSDERM-SCOP) patch 1.5 mg/72 hr (delivers 1 mg over 3 days) Apply 1 Patch as directed every 72 hours. Yes atorvastatin (LIPITOR) 20 mg tablet Take 1 tablet by mouth daily at bedtime. For cholesterol. Yes tamsulosin (FLOMAX) 0.4 mg Take 1 capsule by mouth once daily. Yes cimetidine (TAGAMET) 200 mg tablet Take 200 mg by mouth twice daily. Yes calcium carbonate/vitamin D3 (CALCIUM + D ORAL) Take 1 tablet by mouth twice daily. Yes leuprolide acetate (ELIGARD SUBCUTANEOUS) Inject subcutaneously once every 6 months. Yes dexAMETHasone (DECADRON) 4 mg tablet Take 1 tablet by mouth daily with breakfast. Take on mornings of injections Patient not taking: Reported on 10/28/2024 darbepoetin dagmar in alb[place] john (ARANESP INJECTION) by INJECTION(UNSPECIFIED PARENTERAL ROUTES) route every 4 weeks. PRN Patient not taking: Reported on 10/28/2024 iv contrast (will be provided with radiology [...] in the MR contrast administration guidelines link. Patient not taking: Reported on 10/28/2024 No medication comments found. ALLERGIES Allergen Reactions Ragweed Pollen Other: See Comments Watering/itchy eyes Objective PHYSICAL EXAM: GENERAL: NAD, alert and oriented. SKIN: Bandage intact to scalp lesion. HEAD: Normocephalic. EYES: PERRLA, EOMI, conjunctiva clear. EARS: External ears normal, canals clear. NOSE/SINUSES: Nares normal. Septum midline. OROPHARYNX: Lips, mucosa, and tongue normal, good dentition. No oral lesions noted. NECK: Supple, no lymphadenopathy, normal thyroid, carotid bruit noted on the right. LUNGS: Clear to auscultation bilaterally, no wheezes/rhonchi/rales. HEART: Regular rate and rhythm, no murmurs. No ectopy. EXTREMITIES: Left leg appears slightly larger than the right. Trace pedal edema bilaterally. No deformities, no skin discoloration. NEURO: Awake, alert and oriented x3, cranial nerves II-XII grossly intact, normal gait, no involuntary motions. PAIN ASSESSMENT: VITALS: BP 102/67 Pulse 90 Temp 97.8 Resp 20 Ht 5' 7 (1.70m) Wt 140 lb 6.9 oz (63.7kg) SpO2 99% BMI 21.99 kg/(m^2). Diagnostic tests reviewed for today's visit: Lab Value Units Date High Low HB 9.3 g/dL 10/22/2024 17.0 13.0 HCT 30.3 % 10/22/2024 51.0 39.0 WBC 5.51 k/uL 10/22/2024 11.00 3.70 PLT 199 k/uL 10/22/2024 400 150 NA 138 mmol/L 10/22/2024 144 136 K 3.8 mmol/L 10/22/2024 5.1 3.7 GLUC 104 mg/dL 10/22/2024 99 74 BUN 18 mg/dL 10/22/2024 24 9 CREAT 0.81 mg/dL 10/22/2024 1.22 0.73 PTSEC No results within date range. INR No results within date range. APTT No results within date range. ALT 32 U/L 10/22/2024 54 10 AST 23 U/L 10/22/2024 40 14 TBILI 0.7 mg/dL 10/22/2024 1.3 0.2 TSH No results within date range. Lab Value Units Date High Low HCGQT No results within date range. UHCG No results within date range. HCG, BODY* No results within date range. Lab Value Units Date High Low ABORHD No results within date range. ABSCREEN No results within date range. No results found for: HBA1C Recent Results (from the past 8760 hours) ECG COMPLETE Collection Time: 08/09/24 3:29 PM Result Value Ventricular Rate 95 Atrial Rate 95 P-R Interval 136 QRS Duration 76 QT Interval 360 QTC Calculation (Bazett) 452 Calculated P Throckmorton 61 Calculated R Throckmorton -32 Calculated T Throckmorton 62 Impression NORMAL SINUS RHYTHM ANTERIOR T WAVE ABNORMALITY ABNORMAL ECG Confirmed by MD JOZEF, QARAB ([id number]) on 08/10/2024 11:55:46 AM Recent Results (from the past 27077 hours) ECHO Collection Time: 08/26/24 9:21 AM Impression CONCLUSIONS: - Technically difficult exam due to body habitus. - Exam indication: Exam indication: Shortness of Breath - The left ventricle is normal in size. Left ventricular systolic function is normal. EF = 55 5% (2D biplane) Normal left ventricular diastolic function. - The right ventricle is normal in size. Right ventricular systolic function is normal. - There are no significant valvular abnormalities. - Exam was compared with the prior echocardiographic exam performed on 07/03/2023, no significant change. * * * Final * * * Stress test 11/12/2023: CONCLUSIONS: 1. SPECT Perfusion Study: Normal. 2. There is no scintigraphic evidence for inducible ischemia. 3. No evidence of scarred myocardium. 4. Left ventricle is normal in size. The left ventricle systolic function is normal. 5. This is a low risk scan. Gated Stress IR:3D LVEF % 74 Instructions Given to Patient: Instructions located in the after visit summary. Patient given verbal and written preop instructions and voices comprehension and compliance. SIGNATURE: TATE Nieves PATIENT NAME: Luther Castillo DATE: October 28, 2024 TIME: 9:00 AM PAGER/CONTACT #: documented in this encounter [facility] 10-28-2024 Instructions Roxi Martinez PA - 10/28/2024 9:00 AM EDT Images from the original note were not included. [facility] PATIENT PREOPERATIVE INSTRUCTIONS Linden Mcguire MD [facility] [phone] --[address] [place] [address]. Please read below carefully for your personalized instructions. Dietary Restrictions: - No solid food after midnight. - You may have 12 ounces of clear liquids (water, clear juices such as apple juice or gatorade, carbonated beverages, clear tea, black coffee, jello) until 2 hours before scheduled arrival at facility. - Do not drink any alcohol after midnight the night before your surgery. Medications: Unless instructed differently below, stay on all of your medications until your surgery. If you start any new medications after today's visit, please contact your surgeon. Pre-Surgery Med Instructions Medication Instructions amoxicillin-clavulanate potassium (AUGMENTIN) 875-125 mg per tablet If you normally take this medication in the morning, take the morning of surgery. abiraterone 250 mg tablet If you normally take this medication in the morning, take the morning of surgery. predniSONE (DELTASONE) 5 mg tablet If you normally take this medication in the morning, take the morning of surgery. scopolamine (TRANSDERM-SCOP) patch 1.5 mg/72 hr (delivers 1 mg over 3 days) Continue as needed atorvastatin (LIPITOR) 20 mg tablet If you normally take this medication in the morning, take the morning of surgery. tamsulosin (FLOMAX) 0.4 mg If you normally take this medication in the morning, take the morning of surgery. cimetidine (TAGAMET) 200 mg tablet If you normally take this medication in the morning, take the morning of surgery. leuprolide acetate (ELIGARD SUBCUTANEOUS) Takes every 6 months. If you take any medications for erectile dysfunction-Cialis (Tadalafil), Levitra, Staxyn (Vardenafil) Viagra (Sildenenafil please do not take these for 48 hours before surgery. If you start any new medications after today's visit, please contact the surgeon's office. If you are currently using a [id number] injectable or oral medication for diabetes or weight loss such as Dulaglutide (Trulicity), Exenatide (Byetta, Bydureon), Liraglutide (Victoza, Saxenda), Semaglutide (Ozempic, Wegovy, Rybelsus), or Tirzepatide (Mounjaro), the medicine should be stopped at least 7 days before surgery. These medicines can cause food to remain in your stomach for a very long time and increase the risks from surgery and anesthesia. Not stopping the medication for a long enough time may result in your surgery being rescheduled. Blood Thinning Medications: - Stop NSAIDS (Ibuprofen, Advil, Aleve, Motrin, Celebrex, Mobic, etc.) 7 days before surgery, as directed by your surgeon. - Stop Aspirin 7 days before surgery, as directed by your surgeon. - Stop ALL herbal and dietary supplements 7 days before surgery. - You may take Tylenol (Acetaminophen) or any of your pain medications that do not contain aspirin or NSAIDS as needed. Important Reminders: -Please be sure to brush your teeth and you can use mouth wash or rinse your mouth if dry. - Candy, mints, and tobacco products are NOT permitted the morning of surgery. - Hearing aids, dentures and glasses may be worn the morning of surgery. - NO jewelry, body piercings, makeup, hairpins or contacts are to be worn the day of surgery. If you develop symptoms such as a fever, cold, or flu, or have other changes to your health within TWO DAYS of scheduled surgery or the morning of surgery, please contact the surgery center above. Personal Belongings: -Please have photo ID and insurance cards. -If you do not have a copy of advance directives on file with us, please bring a copy with you on the day of surgery. - Leave ALL valuables and money at home or with family members. - Please bring high-quality footwear, such as sneakers, to the hospital for ambulating post-surgery. For Outpatient Procedures: - YOU MUST HAVE A RESPONSIBLE REAL ESTATE BROKER TAKE YOU HOME. A REAL ESTATE BROKER OR ORDNANCE KEEPER CANNOT BE MADE A RESPONSIBLE REAL ESTATE BROKER. - We recommend that a responsible person stays with you overnight to take care of you. - You cannot stay in a hotel alone after outpatient surgery. You will not be permitted to have your surgery, if you do not have someone to take care of you. Arrival Time for Surgery: - The Surgery Center or hospital where you are having surgery will call the afternoon before surgery (or Friday for Friday surgery) with a scheduled arrival time. - If you have not heard by 4 pm, please contact the surgery center above. Please be aware that emergency situations arise, which may delay or change your surgical time. If this happens, we will notify you as soon as possible and regret any inconvenience. If you already have an Advance Directive, please fax a copy to [phone] or email to for it to be added to your chart. If you do not have an Advance Directive, you can find the appropriate form and more information at [email or web address]. We recommend that you complete the Advance Directive form found on the website and bring it with you the day of your surgery. It can be witnessed and scanned into your chart that day. TATE Nieves documented in this encounter [facility] 10-27-2024 Note [facility] 10-27-2024 History of Presen t illness Narrative HISTORY AND PHYSICAL Luther Castillo 1955 REFERRING PHYSICIAN: Bashir Killian DO CHIEF COMPLAINT: Consult (Cholangitis) HPI: Luther is a 69 year old male with a recent hospital admission for sepsis presumed to be due to acalculous cholecystitis. 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 Luther was hospitalized at [facility] on September 18 for 4 nights [...] receiving treatment at the wound center in [place] and is considering a second opinion. He mentions that the wound has not shown significant improvement and is considering a skin graft as recommended by his current provider. The patient is being seen by me at the request of Dr. Arsalan Lilly MD for my opinion and advice regarding questionable ascending cholangitis as a cause for recent hospital admission for septic episode. We are able to obtain some records from his first hospitalization. At that time he was suspected of having cholecystitis given his imaging studies and bacterial cultures revealed Streptococcus intermedius and haemophilus parainfluenza bacteremia. The patient was seen on October 11. He then noted fever and chills and was readmitted to [facility] on October 15, 2024 with hypotension. The patient again was found to be in a state of shock he was given Levophed broad-spectrum antibiotics. Blood cultures returned as Streptococcus intermedius. For this hospitalization he had a CT scan and ultrasound which demonstrated no abnormalities. He had an ultrasound obtained in the [facility] system on October 22. This was unremarkable. Office Visit on 10/22/2024 Component Date Value Ref Range Status GLUCOSE UA (POCT) 10/22/2024 Negative Negative mg/dL Final BILIRUBIN UA (POCT) 10/22/2024 Negative Negative Final KETONE UA (POCT) 10/22/2024 Negative Negative mg/dL Final SPECIFIC GRAVITY UA (POCT) 10/22/2024 1.015 1.005 - 1.030 Final HEMOGLOBIN/BLOOD UA (POCT) 10/22/2024 Trace-intact (A) Negative Final PH UA (POCT) 10/22/2024 7.0 4.5 - 8.0 Final PROTEIN UA (POCT) 10/22/2024 Negative Negative mg/dL Final UROBILINOGEN UA (POCT) 10/22/2024 0.2 Normal E.U./dL Final NITRITE UA (POCT) 10/22/2024 Negative Negative Final LEUKOCYTES UA (POCT) 10/22/2024 Negative Negative Final COLOR UA (POCT) 10/22/2024 Light yellow Final CLARITY UA (POCT) 10/22/2024 Clear Final Appointment on 10/22/2024 Component Date Value Ref Range Status WBC 10/22/2024 5.51 3.70 - 11.00 k/uL Final RBC 10/22/2024 3.77 (L) 4.20 - 6.00 m/uL Final Hemoglobin 10/22/2024 9.3 (L) 13.0 - 17.0 g/dL Final Hematocrit 10/22/2024 30.3 (L) 39.0 - 51.0 % Final MCV 10/22/2024 80.4 80.0 - 100.0 fL Final MCH 10/22/2024 24.7 (L) 26.0 - 34.0 pg Final MCHC 10/22/2024 30.7 30.5 - 36.0 g/dL Final RDW-CV 10/22/2024 20.8 (H) 11.5 - 15.0 % Final Platelet Count 10/22/2024 199 150 - 400 k/uL Final MPV 10/22/2024 8.7 (L) 9.0 - 12.7 fL Final Neutrophils % 10/22/2024 51.8 % Final Abs Neut 10/22/2024 2.85 1.45 - 7.50 k/uL Final Lymphocytes % 10/22/2024 36.3 % Final Abs Lymph 10/22/2024 2.00 1.00 - 4.00 k/uL Final Monocytes % 10/22/2024 7.4 % Final Abs Fillmore 10/22/2024 0.41 <0.87 k/uL Final Eosinophils % 10/22/2024 3.8 % Final Abs Eosin 10/22/2024 0.21 <0.46 k/uL Final Basophils % 10/22/2024 0.0 % Final Abs Baso 10/22/2024 <0.03 <0.11 k/uL Final Immature Granulocytes % 10/22/2024 0.7 % Final Abs Immature Gran 10/22/2024 0.04 <0.10 k/uL Final NRBC 10/22/2024 0.0 /100 WBC Final Absolute nRBC 10/22/2024 <0.01 <0.01 k/uL Final Diff Type 10/22/2024 Auto Final Protein, Total 10/22/2024 6.8 6.3 - 8.0 g/dL Final Albumin 10/22/2024 3.8 (L) 3.9 - 4.9 g/dL Final Calcium, Total 10/22/2024 9.2 8.5 - 10.2 mg/dL Final Bilirubin, Total 10/22/2024 0.7 0.2 - 1.3 mg/dL Final Alkaline Phosphatase 10/22/2024 148 (H) 38 - 113 U/L Final AST 10/22/2024 23 14 - 40 U/L Final ALT 10/22/2024 32 10 - 54 U/L Final Glucose 10/22/2024 104 (H) 74 - 99 mg/dL Final The [place] Diabetes Association (ADA) provides guidance for cutoff values for fasting glucose and random glucose. The ADA defines fasting as no caloric intake for at least 8 hours. Fasting plasma glucose results between 100 to 125 mg/dL indicate increased risk for diabetes (prediabetes). Fasting plasma glucose results greater than or equal to 126 mg/dL meet the criteria for diagnosis of diabetes. In the absence of unequivocal hyperglycemia, results should be confirmed by repeat testing. In a patient with classic symptoms of hyperglycemia or hyperglycemic crisis, random plasma glucose results greater than or equal to 200 mg/dL meet the criteria for diagnosis of diabetes. Reference: Standards of Medical Care in Diabetes 2016, [place] [employer] Association. Diabetes Care. 2016.39(Suppl 1). BUN 10/22/2024 18 9 - 24 mg/dL Final Creatinine 10/22/2024 0.81 0.73 - 1.22 mg/dL Final Sodium 10/22/2024 138 136 - 144 mmol/L Final Potassium 10/22/2024 3.8 3.7 - 5.1 mmol/L Final Chloride 10/22/2024 101 98 - 107 mmol/L Final CO2 10/22/2024 25 22 - 30 mmol/L Final Anion Gap 10/22/2024 12 8 - 15 mmol/L Final Estimated Glomerular Filtration Ra* 10/22/2024 94 >=60 mL/min/1.73m Final Estimated Glomerular Filtration Rate (eGFR) is calculated using the 2020 CKD-EPI creatinine equation. This equation utilizes serum creatinine, sex, and age as parameters. The creatinine assay has traceable calibration to isotope dilution-mass spectrometry. Refer to KDIGO guidelines for clinical interpretation. In patients with unstable renal function, e.g. those with acute kidney injury, the eGFR may not accurately reflect actual GFR. SIGNIFICANT MEDICAL PROBLEMS: PAST MEDICAL HISTORY Diagnosis Date Abdominal pain, left lower quadrant Actinic keratosis Allergic rhinitis, cause unspecified Allergic rhinitis Anemia, unspecified type Arthritis Benign neoplasm of rectum and anal canal Bilateral lower extremity edema BPH (benign prostatic hyperplasia) Elevated PSA Dr Mckeon Family history of malignant neoplasm of prostate 02/13/2017 Gastroesophageal reflux disease with esophagitis 10/09/2016 Hemorrhoids, unspecified hemorrhoid type History of squamous cell carcinoma of skin 06/2017 left frontal scalp Iron deficiency anemia, unspecified Prostate cancer (HCC) Dr. 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 VITALS: Blood pressure 115/60, pulse 81, temperature 36.3 C (97.3 F), SpO2 99%. There is no height or weight on file to calculate BMI. HEENT: Normal cephalic, ataumatic, pupils are equally [...] No mental status changes reported during hospitalization. With the recent significant hospitalization no ultrasound or CT scan abnormalities were noted. - Discussed laparoscopic cholecystectomy as a treatment [...] decide on the necessity/timing of the cholecystectomy. Patient also has a consultation with infectious disease -Dr. Nilay Ramirez-in the next few weeks. I will forward this note to him for his opinion on the need for cholecystectomy. I would be inclined not to perform cholecystectomy, but will seek the opinion of my expert consultants Diagnoses: (A41.9, R65.21) Sepsis with acute organ dysfunction and septic shock, due to unspecified organism, unspecified organ dysfunction type (HCC) (primary encounter diagnosis) My findings have been communicated to Dr. Killian via shared medical record. This note will be forwarded to Dr. Arsalan Lilly MD. Davida Al MD documented in this encounter [facility] 10-22-2024 Instructions Arsalan Lilly MD - 10/22/2024 1:13 PM EDT - Take Augmentin as prescribed twice daily for 10 days; finish the entire course. - Recent blood tests (white blood cell count, electrolytes, kidney and liver function) were all within normal limits; your mild anemia remains stable. - Urinalysis today showed no infection; the trace blood is likely related to your prostate condition. - Wear your compression stockings daily to help reduce leg swelling. - Keep your scheduled skin graft procedure for your scalp in about two weeks. - Schedule and attend a follow-up appointment with Dr. Yanez next week to review your abdominal ultrasound results. - Arrange and attend an appointment with an infectious disease specialist (referral sent; check availability at [facility] and [facility]). - After finishing the 10-day Augmentin course, have blood cultures drawn to confirm infection clearance; you may coordinate this with your oncology blood work on November 02. - Seek immediate medical care if you develop fever, chills, a return of severe fatigue or weakness, worsening leg swelling, new shortness of breath, or difficulty breathing when lying flat. documented in this encounter [facility] 10-22-2024 Note [facility] 10-22-2024 History of Presen t illness Narrative Images from the original note were not included. Chief Complaint Patient presents with: Transition Of Care HPI Luther Castillo is a 69 year old male who presents here today for Hospital Discharge Follow up/TCM. Septic Shock: - Hospitalized from October 15 to October 19 for septic shock. - Initial presentation included progressive generalized weakness and fever. - Found to be hypotensive; admitted to ICU for management. - Treated with broad-spectrum antibiotics and IV fluids; did not require vasopressors. - Blood cultures positive for Streptococcus anginosus. - Discharged on Augmentin BID for 10 days per ID recommendation. - No new fevers, chills, nausea, or emesis since discharge. - Denies cough, wheezing, or abdominal pain. - No new joint pain or swelling. - No dysuria or hematuria. - No oral pain or swelling; recent dental visit with no concerns noted. - Reports increased urinary frequency, likely due to fluid overload from hospitalization. - Edema in lower extremities, improving gradually. - Dyspnea and fatigue with minimal exertion; no orthopnea. - Denies constipation or diarrhea. - Follow-up with Dr. Al scheduled next week. Cholecystitis: - Previous hospitalization for acute cholecystitis with Streptococcus intermedius and Haemophilus parainfluenzae bacteremia. - Recent imaging ordered by Dr. Al, but is still pending; follow-up scheduled next week. Prostate Cancer: - History of stage IV prostate cancer with bone metastases. - Chronic anemia and thrombocytopenia related to cancer. - Recent echocardiogram showed no vegetation; EF 60%. - Previous echocardiogram in August showed trace mitral valve regurgitation; recent echocardiogram showed moderate regurgitation and mild pulmonary hypertension with RVSP of 45 mmHg and atrial dilation. TRANSITION CARE MANAGEMENT (TCM) INITIAL CONTACT [facility] Provider Action/FYI: Initial contact with patient post discharge, spoke to patient. Patient identified by name and . TRANSITION CARE MANAGEMENT INITIAL OUTREACH DOCUMENTATION: No data to display SUMMARY: -Pt discharged from 10/15/24 on 10/19/24. -Admitted for: Sepsis Do you have a hospital follow up appointment with your PCP? Appointment on 10/22/[address] Lilly. Yes. Remind patient of appointment date, time, and location. If not within 14 calendar days of discharge - please reschedule accordingly. MEDICATIONS: Many patients have questions or concerns about their medications once they are home. Were you prescribed any new medications? Yes. Taking Amoxicillin. Were you told to hold any medications? No Were any of your medications discontinued? No Do you have any questions about getting or taking your medications? No Your discharge instructions/After visit Summary (AVS) are important in guiding you through the recovery process. Is there anything I might help you understand? No Do you have all the necessary equipment and supplies at home? Yes Medical records from recent hospitalization: Requested from outside hospital Past medical history, appointments, medications, allergies reviewed. [...] deficiency anemia, unspecified Prostate cancer (HCC) Dr. 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 Seborrheic keratosis Vasovagal reaction 10/09/2016 Previous Surgical History PAST SURGICAL HISTORY Procedure Laterality Date APPENDECTOMY 02/05/2024 [facility] COLONOSCOPY 02/27/2022 COLONOSCOPY FLX DX W/COLLJ [...] on File Prior to Visit Medication Sig abiraterone 250 mg tablet TAKE [...] date: 01/13/1971 Quit date: 07/13/1973 Years since quittin.3 Smokeless tobacco: Never Vaping Use Vaping status: [...] for lesions, rash, and itching EXAM: BP 120/70 Pulse 84 Temp 36.3 C (97.4 F) (Right Tympanic) Resp 16 Wt 68 kg (150 lb) BMI 23.49 kg/m General Appearance: Well appearing, alert, in no acute distress, well-hydrated, well nourished.. Skin: bandage on the crown of scalp from recent Mohs procedure without spreading erythema. Head: Normocephalic, no masses, lesions, tenderness or abnormalities. Oropharynx: Lips, mucosa, and tongue normal, teeth and gums normal, oropharynx normal. Neck: Supple, no adenopathy; thyroid symmetric, normal size, no bruits. Lungs: Lungs clear to auscultation. No wheezing, rhonchi, rales.. Heart: RRR without murmur, gallop, or rubs. No ectopy. Abdomen: Normal abdominal exam, Abdomen soft, non-tender. Bowel sounds normal. No masses, organomegaly. Extremities: Edema: 2+ edema to knee bilaterally. . Health Maintenance List Anxiety Screening Never done Advance Directive Discussion due on 04/07/2024 Covid-19 Vaccine( season) due on 07/09/2024 Influenza Vaccine(1) due on 12/06/2024 Depression Screening due on 03/10/2025 Medicare Annual Wellness Visit due on 03/10/2025 Colorectal Cancer Screening due on 02/27/2027 Diabetes Screening due on 10/23/2027 Lipid Screening due on 06/10/2028 DTaP,Tdap,Td Vaccine(4 - Td or Tdap) due on 09/23/2032 Abdominal Aortic Aneurysm Screening Completed RSV Vaccine Completed Hepatitis C Screening Completed Shingrix Vaccine Completed Pneumococcal Vaccine: 50+ Completed Data reviewed Latest Ref Rng 10/22/2024 WBC 3.70 - 11.00 k/uL 5.51 RBC 4.20 - 6.00 m/uL 3.77 (L) Hemoglobin 13.0 - 17.0 g/dL 9.3 (L) Hematocrit 39.0 - 51.0 % 30.3 (L) MCV 80.0 - 100.0 fL 80.4 MCH 26.0 - 34.0 pg 24.7 (L) MCHC 30.5 - 36.0 g/dL 30.7 RDW-CV 11.5 - 15.0 % 20.8 (H) Platelet Count 150 - 400 k/uL 199 MPV 9.0 - 12.7 fL 8.7 (L) Neut% % 51.8 Abs Neut (ANC) 1.45 - 7.50 k/uL 2.85 Lymph% % 36.3 Abs Lymph 1.00 - 4.00 k/uL 2.00 Fillmore% % 7.4 Abs Fillmore <0.87 k/uL 0.41 Eosin% % 3.8 Abs Eosin <0.46 k/uL 0.21 Baso% % 0.0 Abs Baso <0.11 k/uL <0.03 Immature Gran % % 0.7 IMMATURE GRANS (ABS) <0.10 k/uL 0.04 NRBC /100 WBC 0.0 Absolute nRBC <0.01 k/uL <0.01 DTYPE Auto Protein, Total 6.3 - 8.0 g/dL 6.8 Albumin 3.9 - 4.9 g/dL 3.8 (L) Calcium 8.5 - 10.2 mg/dL 9.2 Bilirubin, Total 0.2 - 1.3 mg/dL 0.7 Alkaline Phosphatase 38 - 113 U/L 148 (H) AST 14 - 40 U/L 23 ALT 10 - 54 U/L 32 Glucose 74 - 99 mg/dL 104 (H) BUN 9 - 24 mg/dL 18 Creatinine 0.73 - 1.22 mg/dL 0.81 Sodium 136 - 144 mmol/L 138 Potassium 3.7 - 5.1 mmol/L 3.8 Chloride 98 - 107 mmol/L 101 CO2 22 - 30 mmol/L 25 Anion Gap 8 - 15 mmol/L 12 eGFR >=60 mL/min/1.73m 94 Legend: (L) Low (H) High 1. Septic shock (HCC) (A41.9) 2. Streptococcal infection (A49.1) - Recent hospitalization from October 15 to October 19 for septic shock secondary to Streptococcus anginosus bacteremia. - Blood cultures from current and previous admissions grew Streptococcus intermedius. - Managed with broad-spectrum IV antibiotics and IV fluid resuscitation during hospitalization; transitioned to Augmentin BID for 10 days upon discharge per Infectious Disease recommendation. - No current fevers, chills, nausea, or vomiting; patient reports feeling better and is compliant with Augmentin. - Ordered follow-up blood cultures to be drawn after completion of Augmentin on November 02 to ensure clearance of bacteremia. - Referral to Infectious Disease for further evaluation and management. 3. Hypokalemia (E87.6) 4. Hypophosphatemia (E83.39) - Corrected during hospitalization per protocol. - Recent labs show normal electrolyte levels. 5. Prostate cancer (HCC) (C61) 6. Metastasis to bone (HCC) (C79.51) - Chronic anemia and thrombocytopenia related to stage 4 prostate cancer with bone metastasis. - Follow-up with oncology scheduled for November 02. 7. Anemia, unspecified type (D64.9) - Chronic and stable; related to metastatic prostate cancer. - Recent labs show stable hemoglobin levels. 8. Thrombocytopenia (D69.6) - Chronic and stable; related to metastatic prostate cancer. - Recent labs show normal platelet count. 9. Urinary frequency (R35.0) - Increased urinary frequency likely secondary to fluid overload from hospitalization. - Urinalysis shows trace hematuria, likely related to prostate history; no signs of infection. - Advised to monitor for any new urinary symptoms. 10. Bilateral lower extremity edema (R60.0) - Edema improving since discharge; advised use of compression stockings. - Monitor for signs of fluid overload, including worsening edema and dyspnea. 11. Pulmonary hypertension (HCC) (I27.20) - Recent echocardiogram shows mild pulmonary hypertension with RVSP of 45 mmHg. - Ejection fraction remains normal at 60%. - Noted moderate mitral valve regurgitation and atrial dilation compared to previous echocardiogram in August. - Will send results to rock drill operator for further evaluation and management. documented in this encounter [facility] 10-21-2024 Telephone encounter Note Images from the original note were not included. TRANSITION CARE MANAGEMENT (TCM) INITIAL CONTACT [facility] Provider Action/FYI: Initial contact with patient post discharge, spoke to patient. Patient identified by name and . TRANSITION CARE MANAGEMENT INITIAL OUTREACH DOCUMENTATION: No data to display SUMMARY: -Pt discharged from 10/15/24 on 10/19/24. -Admitted for: Sepsis Do you have a hospital follow up appointment with your PCP? Appointment on 10/22/[address] Lilly. Yes. Remind patient of appointment date, time, and location. If not within 14 calendar days of discharge - please reschedule accordingly. MEDICATIONS: Many patients have questions or concerns about their medications once they are home. Were you prescribed any new medications? Yes. Taking Amoxicillin. Were you told to hold any medications? No Were any of your medications discontinued? No Do you have any questions about getting or taking your medications? No Your discharge instructions/After visit Summary (AVS) are important in guiding you through the recovery process. Is there anything I might help you understand? No Do you have all the necessary equipment and supplies at home? Yes Medical records from recent hospitalization: Requested from outside hospital [facility] 10-21-2024 Miscellaneous Notes Images from the original note were not included. TRANSITION CARE MANAGEMENT (TCM) INITIAL CONTACT [facility] Provider Action/FYI: Initial contact with patient post discharge, spoke to patient. Patient identified by name and . TRANSITION CARE MANAGEMENT INITIAL OUTREACH DOCUMENTATION: No data to display SUMMARY: -Pt discharged from 10/15/24 on 10/19/24. -Admitted for: Sepsis Do you have a hospital follow up appointment with your PCP? Appointment on 10/22/[address] Lilly. Yes. Remind patient of appointment date, time, and location. If not within 14 calendar days of discharge - please reschedule accordingly. MEDICATIONS: Many patients have questions or concerns about their medications once they are home. Were you prescribed any new medications? Yes. Taking Amoxicillin. Were you told to hold any medications? No Were any of your medications discontinued? No Do you have any questions about getting or taking your medications? No Your discharge instructions/After visit Summary (AVS) are important in guiding you through the recovery process. Is there anything I might help you understand? No Do you have all the necessary equipment and supplies at home? Yes Medical records from recent hospitalization: Requested from outside hospital documented in this encounter [facility] 10-19-2024 Discharge summary Note Date/Time October 19, 2024 1:41pm [facility] Medical Records Department [address] [place] [address] Discharge Summary 10/19/24 1338 MR#: [id number] Acct: [id number] Name: LUTHER CASTILLO II Rep #:[id number] : 1955 69 From: Tabatha Ashley MD PCP: Dr. López Lilly MD Status :ADM IN Location: [place] [id number] Providers Date of Admission: 10/15/24 Date of Discharge: 10/19/24 Primary Care Physician: Dr. López Lilly MD Consultations 10/15/24 10:23 Consult: Infectious Disease Routine Consulting Provider: Rocco Fatima Reason for Consult: Septic shock, unclear source EMERGENT Consult: No Notified: Yes Date Notified: 10/15/24 Time Notified: 10:13 Method of Notification: Text Consult: Soft Sugar Supervisor / Pulmonary Medicine Routine Consulting Provider: Intensivists/Pulmonary Med Reason for Consult: Septic shock EMERGENT Consult: No Notified: Yes Date Notified: 10/15/24 Time Notified: 08:40 Method of Notification: Verbal Reason For Visit: SEPTIC SHOCK Diagnosis Discharge Diagnosis (1) Prostate cancer: Status: Acute Code(s): C61 - Malignant neoplasm of prostate (2) Septic shock: Status: Acute Code(s): A41.9 - Sepsis, unspecified organism; R65.21 - Severe sepsis with septic shock Plan Patient is a 69-year-old gentleman with recent admission for acute cholecystitiswith strep and haemophilus bacteremia who presented to the emergency department with progressive generalized weakness as well as fever. Patient was found to behypotensive admitted to the intensive care unit for further management 1. Septic shock ? Of undetermined source. Patient presented with progressive generalized weakness fever and hypotension. Given patient recent admission for acute cholecystitis with strep and haemophilus bacteremia patient was started on broad-spectrum antibiotic therapy admitted to the intensive care unit resuscitated with IV fluid and patient did not require Levophed.Patient culturesobtained so far positive for Strep anginosus. Patient was transferred from theICU to PCU following stabilization. Patient previous culture grew strep intermedius and haemophilus parainfluenza. Ordered 2D echo given patient strep bacteremia. Subsequent management decisions deferred to ID ? Patient was seen in consultation by Dr. Fatima with ID recommended for patient to be discharged home on Augmentin for 10 days ? 10/19/2024;Patient's final blood cultures positive for Streptococcus intermedius. Patient grew the same organism on 09/18/2024. 2D echo was ordered for subsequent eval. ID is on board. ? Patient echo did not show any evidence of vegetation. Case was discussed withDr. Her prior to patient being discharged home 2. Hypokalemia ? Corrected per protocol 3. Hypophosphatemia ? Corrected per protocol 4. Stage IV prostate cancer with mets to the bone ? Patient follows up with oncology and is currently in immunotherapy 5. Anemia ? Secondary to chronic disorder monitoring H&H and transfuse if patient becomes symptomatic or hemoglobin falls below 7 6. Thrombocytopenia Appears to be chronic will monitor 7. Squamous cell carcinoma involving the scalp ? Status post excision 4 months prior 8. Physical deconditioning ? Requested for PT OT eval and social service worker to assist with discharge planning 9. DVT prophylaxis ? Enoxaparin Medications at Discharge Home Medications abiraterone 250 mg tablet 1,000 mg PO DAILY prostate cancer 12/11/23 atorvastatin 20 mg tablet 20 mg PO QHS cholesterol 12/11/23 prednisone 5 mg tablet 10 mg PO BID prostate 12/11/23 tamsulosin 0.4 mg capsule 0.4 mg PO DAILY prostate 12/11/23 leuprolide acetate (6 month) 45 mg (6 month) subcutaneous syringe ([email or web address]) 45 mg subcut .COMPLEX 02/05/24 calcium 600 mg (as carbonate)-vitamin D3 5 mcg (200 unit) tablet (Calcium 600 + D(3)) 2 tab PO DAILY calcium 10/15/24 cimetidine 200 mg tablet (Heartburn Relief (cimetidine)) 200 mg PO DAILY 10/15/24 darbepoetin dagmar in polysorbat 25 mcg/mL in polysorbate injection (Aranesp) 25 mcg subcut QMONTH 10/15/24 amoxicillin 875 mg-potassium clavulanate 125 mg tablet 1 tab PO BID #20 tabs 10/18/24 Hospital Course Summary of Care Provided Minutes Spent on Discharge: 35 Physical Exam Narrative GENERAL: cooperative HEENT: Atraumatic; scalp wound EYES; Anicteric, Normal Conjunctiva NECK; supple, normal thyroid, RESPIRATORY: Diminished to auscultation CARDIOVASCULAR: Regular S1 S2, GI: soft, normoactive bowel sounds, : No Renal angle tenderness; EXTREMITIES: No edema, no clubbing, MUSCULOSKELETAL: no muscle wasting NEURO: Awake; no lateralizing signs. 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 Status Active Problem Recommendation Dietitian Adjust to liberal regular diet. Recommendations/ Will order 120ml chocolate EPHP 4x daily with medpass. Changes Will monitor weight trends. Weight / BMI Weight Weight: 77.1 kg Body Mass Index (BMI) 27.4 ABG / Lab / Microbiology Data 10/19/24 05:36 10/19/24 05:36 Laboratory: Laboratory Results - last 24 hr 10/19/24 05:36: WBC 5.1, RBC 3.13 L, Hgb 7.7 L, Hct 25.4 L, MCV 81.2, MCH 24.6 L, MCHC 30.3 L, RDW Std Deviation 61.5 H, RDW Coeff of Lydia 20.7 H, Plt Count 144 L, MPV 9.4, Immature Gran % (Auto) 1.200 H, Neut % (Auto) 69.6, Lymph % (Auto) 21.5, Fillmore % (Auto) 5.7, Eos % (Auto) 2.0, Baso % (Auto) 0.0, Absolute Neuts (auto) 3.5, Absolute Lymphs (auto) 1.09, Nucleated RBC % 0, Platelet Estimate SLT DEC, Anisocytosis 1+, Tear Drop Cells 1+, Ovalocytes 1+, Sodium 140, Potassium 3.8, Chloride 111 H, Carbon Dioxide 20.8 L, Anion Gap 9, BUN 16, Creatinine 0.62 L, Estim Creat Clear Calc 82.80, Est GFR (MDRD) Non-Af 102, BUN/Creatinine Ratio 26.5 H, Glucose 126 H, Calcium 7.2 L, Phosphorus 2.0 L, Magnesium 1.8 Microbiology: Microbiology 10/15/24 05:10 Blood Culture (Wb) - Right Hand Blood Culture - Final Alpha hemolytic organism 10/15/24 04:47 Blood Culture (Wb) - Anticubital Left Bacteria Detection (PCR) - Final Strep anginosus 10/15/24 04:47 Blood Culture (Wb) - Anticubital Left Blood Culture - Final Streptococcus intermedius 10/15/24 05:10 Urine, Clean Catch Urine Culture - Final Culture exhibits no growth. 10/15/24 09:45 Mucosa - Nose Respiratory Panel (PCR) - Final 10/15/24 11:10 Nasal Secretion MRSA (PCR) - Final 10/15/24 09:45 Urine Catheter - Catheter Legionella Antigen - Final 10/15/24 09:45 Urine Catheter - Catheter Streptococcus pneumoniae Antigen (M- Final Radiography Diagnostic Testing: Radiology Impression Echocardiogram 10/18/24 16:45 Interpretation Summary Mild concentric left ventricular hypertrophy. The LV ejection fraction is 60 %. Stage 1 diastolic dysfunction. There is mild biatrial dilatation. Mild mitral valve annular calcification. Mildly thickened mitral valve leaflets.Moderate posteriorly directed mitral valve regurgitation. Mild tricuspid valve insufficiency. Right ventricular systolic pressure estimated to be 45 mmHg. Mild aortic valve annular calcification. Aortic valve sclerosis without stenosis. Ordering Physician: Tabatha Ashley Performed By: Yanni Kee RDCS and Student D/C Instructions Discharge Activity: Return to Normal Activity Call your doctor if you observe: Fever of 101 or Higher, Shortness of breath, Fainting spells and Chest pain DC O2, CPAP, BIPAP Needs Home O2 Discharge instructions: No Meaningful Use Info Meaningful Use Meaningful Use Diagnoses (Choose all that apply): None applicable Discharge Plan Admission Admit Date/Time: 10/15/24 08:35 Attending Provider: Tabatha Ashley Primary Care Provider: López Lilly Consulting Providers: Rocco Fatima; Edmundo Crabtree; Daryl Roberts; Willem Simeon; Carlos Melvin; Tabatha Mo; Saud Rodriguez; Iker Shi; Angela Bales; Jose Boss; Charly Brown; Sukhwinder Skinner; Vita Samano; Corina Rodriguez; Serena Varner; Cem Maciel; Leonardo Roberts; Oli Salinas; Yunior Mane; Eugene Ann; Olga Diallo; Ryan Blount; Praneeth Hoyt; Jose David Soliz; Lety Augustine Discharge Orders/Prescriptions Prescriptions: New amoxicillin-pot clavulanate 875-125 mg tablet 1 tab PO BID Qty: 20 0RF Continued Eligard (6 month) 45 mg syringe 45 mg subcut .COMPLEX Rx Instructions: 45 mg subcutaneously EVERY 6 MONTHS; cimetidine [Heartburn Relief (cimetidine)] 200 mg tablet 200 mg PO DAILY Rx Instructions: administer with meals Aranesp (in polysorbate) 25 mcg/mL solution 25 mcg subcut QMONTH calcium carbonate-vitamin D3 [Calcium 600 + D(3)] 600 mg-5 mcg (200 unit) tablet 2 tab PO DAILY atorvastatin 20 mg tablet 20 mg PO QHS prednisone 5 mg tablet 10 mg PO BID tamsulosin 0.4 mg capsule 0.4 mg PO DAILY abiraterone 250 mg tablet 1,000 mg PO DAILY Referrals / Follow Up: López Lilly MD [Primary Care Provider] - Disposition Disposition (needs filled in before D/C Order can be placed): Home, Self Care Charges/Coding Visit Charges Inpatient E&M: 22406 Disch Hosp >30min 10/19/24 1341 <Electronically signed by Tabatha Ashley MD> Cosigner Signature (if applicable): CC: Dr. López Lilly MD; Dr. Tabatha Ashley MD~ Signed [facility] Work Phone: [phone]) 920-642007-15-2025 Hospital Discharge instructionsAdditional Instructions [facility]: [facility]: [phone]) 502-788407-15-2025 Discharge summary [facility] Medical Records Department [address] [place] [address] Discharge Summary 10/19/24 1338 MR#: [id number] Acct: [id number] Name: LUTHER CASTILLO II Rep #:[id number] : 1955 69 From: Tabatha Ashley MD PCP: Dr. López Lilly MD Status :ADM IN Location: [place] [address]- 1 Providers Date of Admission: 10/15/24 Date of Discharge: 10/19/24 Primary Care Physician: Dr. López Lilly MD Consultations 10/15/24 10:23 Consult: Infectious Disease Routine Consulting Provider: Rocco Fatima Reason for Consult: Septic shock, unclear source EMERGENT Consult: No Notified: Yes Date Notified: 10/15/24 Time Notified: 10:13 Method of Notification: Text Consult: Soft Sugar Supervisor / Pulmonary Medicine Routine Consulting Provider: Intensivists/Pulmonary Med Reason for Consult: Septic shock EMERGENT Consult: No Notified: Yes Date Notified: 10/15/24 Time Notified: 08:40 Method of Notification: Verbal Reason For Visit: SEPTIC SHOCK Diagnosis Discharge Diagnosis (1) Prostate cancer: Status: Acute Code(s): C61 - Malignant neoplasm of prostate (2) Septic shock: Status: Acute Code(s): A41.9 - Sepsis, unspecified organism; R65.21 - Severe sepsis with septic shock Plan Patient is a 69-year-old gentleman with recent admission for acute cholecystitiswith strep and haemophilus bacteremia who presented to the emergency department with progressive generalized weakness as well as fever. Patient was found to behypotensive admitted to the intensive care unit for further management 1. Septic shock ? Of undetermined source. Patient presented with progressive generalized weakness fever and hypotension. Given patient recent admission for acute cholecystitis with strep and haemophilus bacteremia patient was started on broad-spectrum antibiotic therapy admitted to the intensive care unit resuscita diandra with IV fluid and patient did not require Levophed.Patient culturesobtained so far positive forStrep anginosus. Patient was transferred from theICU to PCU following stabilization. Patient previous culture grew strep intermedius and haemophilus parainfluenza. Ordered 2D echo given patient strepbacteremia. Subsequent management decisions deferred to ID ? Patient was seen in consultation by Dr. Fatima with ID recommended for patient to be discharged home on Augmentin for 10 days ? 10/19/2024;Patient's final blood cultures positive for Streptococcus intermedius. Patient grew thesame organism on 09/18/2024. 2D echo was ordered for subsequent eval. ID is on board. ? Patient echo did not show any evidence of vegetation. Case was discussed withDr. Her prior to patient being discharged home 2. Hypokalemia ? Corrected per protocol 3. Hypophosphatemia ? Corrected per protocol 4. Stage IV prostate cancer with mets to the bone ? Patient follows up with oncology and is currently in immunotherapy 5. Anemia ? Secondary to chronic disorder monitoring H&H and transfuse if patient becomes symptomatic or hemoglobin falls below 7 6. Thrombocytopenia Appears to be chronic will monitor 7. Squamous cell carcinoma involving the scalp ? Status post excision 4 months prior 8. Physical deconditioning ? Requested for PT OT eval and social service worker to assist with discharge planning 9. DVT prophylaxis ? Enoxaparin Medications at Discharge Home Medications abiraterone 250 mg tablet 1,000 mg PO DAILY prostate cancer 12/11/23 atorvastatin 20 mg tablet 20 mg PO QHS cholesterol 12/11/23 prednisone 5 mg tablet 10 mg PO BID prostate 12/11/23 tamsulosin 0.4 mg capsule 0.4 mg PO DAILY prostate 12/11/23 leuprolide acetate (6 month) 45 mg (6 month) subcutaneous syringe (Eligard) 45 mg subcut .COMPLEX 02/05/24 calcium 600 mg (as carbonate)-vitamin D3 5 mcg (200 unit) tablet (Calcium 600 + D(3)) 2 tab PO DAILY calcium 10/15/24 cimetidine 200 mg tablet (Heartburn Relief (cimetidine)) 200 mg PO DAILY 10/15/24 darbepoetin dagmar in polysorbat 25 mcg/mL in polysorbate injection (Aranesp) 25 mcg subcut QMONTH 10/15/24 amoxicillin 875 mg-potassium clavulanate 125 mg tablet 1 tab PO BID #20 tabs 10/18/24 Hospital Course Summary of Care Provided Minutes Spent on Discharge: 35 Physical Exam Narrative GENERAL: cooperative HEENT: Atraumatic; scalp wound EYES; Anicteric, Normal Conjunctiva NECK; supple, normal thyroid, RESPIRATORY: Diminished to auscultation CARDIOVASCULAR: Regular S1 S2, GI: soft, normoactive bowel sounds, : No Renal angle tenderness; EXTREMITIES: No edema, no clubbing, MUSCULOSKELETAL: no muscle wasting NEURO: Awake; no lateralizing signs. SKIN: No Rash PSYCH; Flat affect Medical Records Data Medical Nutrition Assessment Dietitian: Malnutrition Criteria Met Start: 10/16/24 14:00 Freq: Status: Active Protocol: Document 10/16/24 14:00 SB (Rec: 10/16/24 14:00 SB [id number]) Nutrition Malnutrition Evidence of Yes Malnutrition Exists Malnutrition (severe Chronic ): Evidenced By Suboptimal Energy Intake (Severe),Weight Loss (Severe) Clinical Problem Chronic Disease or Condition Related Malnutrition Etiology 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 Status Active Problem Recommendation Dietitian Adjust to liberal regular diet. Recommendations/ Will order 120ml chocolate EPHP 4x daily with medpass. Changes Will monitor weight trends. Weight / BMI Weight Weight: 77.1 kg Body Mass Index (BMI) 27.4 ABG / Lab / Microbiology Data 10/19/24 05:36 10/19/24 05:36 Laboratory: Laboratory Results - last 24 hr 10/19/24 05:36: WBC 5.1, RBC 3.13 L, Hgb 7.7 L, Hct 25.4 L, MCV 81.2, MCH 24.6 L, MCHC 30.3 L, RDW Std Deviation 61.5 H, RDW Coeff of Lydia 20.7 H, Plt Count 144 L, MPV 9.4, Immature Gran % (Auto) 1.200 H, Neut % (Auto) 69.6, Lymph % (Auto) 21.5, Fillmore % (Auto) 5.7, Eos % (Auto) 2.0, Baso % (Auto) 0.0, Absolute Neuts (auto) 3.5, Absolute Lymphs (auto) 1.09, Nucleated RBC % 0, Platelet Estimate SLT DEC, Anisocytosis 1+, Tear Drop Cells 1+, Ovalocytes 1+, Sodium 140, Potassium 3.8, Chloride 111 H, Carbon Dioxide 20.8 L, Anion Gap 9, BUN 16, Creatinine 0.62 L, Estim Creat Clear Calc 82.80, Est GFR (MDRD) Non-Af 102, BUN/Creatinine Ratio 26.5 H, Glucose 126 H, Calcium 7.2 L, Phosphorus 2.0 L, Magnesium 1.8 Microbiology: Microbiology 10/15/24 05:10 Blood Culture (Wb) - Right Hand Blood Culture - Final Alpha hemolytic organism 10/15/24 04:47 Blood Culture (Wb) - Anticubital Left Bacteria Detection (PCR) - Final Strep anginosus 10/15/24 04:47 Blood Culture (Wb) - Anticubital Left Blood Culture - Final Streptococcus intermedius 10/15/24 05:10 Urine, Clean Catch Urine Culture - Final Culture exhibits no growth. 10/15/24 09:45 Mucosa - Nose Respiratory Panel (PCR) - Final 10/15/24 11:10 Nasal Secretion MRSA (PCR) - Final 10/15/24 09:45 Urine Catheter - Catheter Legionella Antigen - Final 10/15/24 09:45 Urine Catheter - Catheter Streptococcus pneumoniae Antigen (M- Final Radiography Diagnostic Testing: Radiology Impression Echocardiogram 10/18/24 16:45 Interpretation Summary Mild concentric left ventricular hypertrophy. The LV ejection fraction is 60 %. Stage 1 diastolic dysfunction. There is mild biatrial dilatation. Mild mitral valve annular calcification. Mildly thickened mitral valve leaflets.Moderate posteriorly directed mitral valve regurgitation. Mild tricuspid valve insufficiency. Right ventricular systolic pressure estimated to be 45 mmHg. Mild aortic valve annular calcification. Aortic valve sclerosis without stenosis. Ordering Physician: Tabatha Ashley Performed By: Yanni Kee RDCS and Student D/C Instructions Discharge Activity: Return to Normal Activity Call your doctor if you observe: Fever of 101 or Higher, Shortness of breath, Fainting spells and Chest pain DC O2, CPAP, BIPAP Needs Home O2 Discharge instructions: No Meaningful Use Info Meaningful Use Meaningful Use Diagnoses (Choose all that apply): None applicable Discharge Plan Admission Admit Date/Time: 10/15/24 08:35 Attending Provider: Tabatha Ashley Primary Care Provider: López Lilly Consulting Providers: Rocco Fatima; Edmundo Crabtree; Daryl Roberts; Willem Simeon; Carlos Melvin; Tabatha Mo; Saud Rodriguez; Iker Shi; Angela Bales; Jose Boss; Charly Brown; Sukhwinder Skinner; Vita Samano; Corina Rodriguez; Serena Varner; Cem Maciel; Leonardo Roberts; Oli Salinas; Yunior Mane; Eugene Ann; Olga Diallo; Ryan Blount; Praneeth Hoyt; Jose David Soliz; Lety Augustine Discharge Orders/Prescriptions Prescriptions: New amoxicillin-pot clavulanate 875-125 mg tablet 1 tab PO BID Qty: 20 0RF Continued Eligard (6 month) 45 mg syringe 45 mg subcut .COMPLEX Rx Instructions: 45 mg subcutaneously EVERY 6 MONTHS; cimetidine [Heartburn Relief (cimetidine)] 200 mg tablet 200 mg PO DAILY Rx Instructions: administer with meals Aranesp (in polysorbate) 25 mcg/mL solution 25 mcg subcut QMONTH calcium carbonate-vitamin D3 [Calcium 600 + D(3)] 600 mg-5 mcg (200 unit) tablet 2 tab PO DAILY atorvastatin 20 mg tablet 20 mg PO QHS prednisone 5 mg tablet 10 mg PO BID tamsulosin 0.4 mg capsule 0.4 mg PO DAILY abiraterone 250 mg tablet 1,000 mg PO DAILY Referrals / Follow Up: López Lilly MD [Primary Care Provider] - Disposition Disposition (needs filled in before D/C Order can be placed): Home, Self Care Charges/Coding Visit Charges Inpatient E&M: 40905 Disch Hosp >30min 10/19/24 1341 Cosigner Signature (if applicable): CC: Dr. López Lilly MD; Dr. Tabatha Ashley MD~ Signed [facility] Progress note Author Tabatha Ashley [facility] Note Date/Time October 19, 2024 10:0 0am [facility] Medical Records Department [address] [place] [address] Progress Note - Hospitalist 10/19/24 0723 MR#: [id number] Acct: [id number] Name: LUTHER CASTILLO II Rep #:[id number] : 1955 69 From: Tabatha Ashley MD PCP: Dr. López Lilly MD Status :ADM IN Location: [place] [address] Reason for Visit Chief Complaint: Fever, chills, fatigue, malaise. Subjective Subjective Patient's final blood cultures positive for Streptococcus intermedius. Patient grew the same organism on 09/18/2024. 2D echo was ordered for subsequent eval. ID is on board. Objective Data Objective Data Vital Signs: Vital Signs Temp Pulse Resp BP Pulse Ox O2 Del Method O2 Flow Rate 98.2 F 77 17 140/76 H 97 Room Air 2 10/19/24 03:18 10/19/24 03:18 10/19/24 03:18 10/19/24 03:18 10/19/24 03:18 10/19/24 03:10/16/24 12:00 Oxygen Flow Rate (L/min) 2 Oxygen Delivery Method Room Air Weight: 77.1 kg Body Mass Index (BMI) 27.4 Intake & Output: Intake and Output for Last 24 Hours 10/17/24 10/18/24 10/19/24 23:59 23:59 23:59 Intake Total 5292.75 / 5772.75 3765.25 / 3765.25 Output Total 850 / 1450 1475 / 1475 Balance 4442.75 / 4322.75 2290.25 / 2290.25 Medical Nutrition Assessment Dietitian: Malnutrition Criteria Met Start: 10/16/24 14:00 Freq: Status: Active Protocol: Document 10/16/24 14:00 SB (Rec: 10/16/24 14:00 SB [id number]) Nutrition Malnutrition Evidence of Yes Malnutrition Exists Malnutrition (severe Chronic ): Evidenced By Suboptimal Energy Intake (Severe),Weight Loss (Severe) Clinical Problem Chronic Disease or Condition Related Malnutrition Etiology 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 Status Active Problem Recommendation Dietitian Adjust to liberal regular diet. Recommendations/ Will order 120ml chocolate EPHP 4x daily with medpass. Changes Will monitor weight trends. Lab / Micro Data 10/19/24 05:36 10/19/24 05:36 Labs: Laboratory Results - last 24 hr 10/18/24 05:20: WBC 5.0, RBC 3.03 L, Hgb 7.7 L, Hct 25.2 L, MCV 83.2, MCH 25.4 L, MCHC 30.6 L, RDW Std Deviation 63.2 H, RDW Coeff of Lydia 20.7 H, Plt Count 130 L, MPV 9.2, Immature Gran % (Auto) 1.000 H, Neut % (Auto) 68.2, Lymph % (Auto) 25.2, Fillmore % (Auto) 4.2, Eos % (Auto) 1.2, Baso % (Auto) 0.2, Absolute Neuts (auto) 3.4, Absolute Lymphs (auto) 1.25, Anisocytosis 1+ 10/19/24 05:36: WBC 5.1, RBC 3.13 L, Hgb 7.7 L, Hct 25.4 L, MCV 81.2, MCH 24.6 L, MCHC 30.3 L, RDW Std Deviation 61.5 H, RDW Coeff of Lydia 20.7 H, Plt Count 144 L, MPV 9.4, Immature Gran % (Auto) 1.200 H, Neut % (Auto) 69.6, Lymph % (Auto) 21.5, Fillmore % (Auto) 5.7, Eos % (Auto) 2.0, Baso % (Auto) 0.0, Absolute Neuts (auto) 3.5, Absolute Lymphs (auto) 1.09, Nucleated RBC % 0, Platelet Estimate SLT DEC, Anisocytosis 1+, Tear Drop Cells 1+, Ovalocytes 1+, Sodium 140, Potassium 3.8, Chloride 111 H, Carbon Dioxide 20.8 L, Anion Gap 9, BUN 16, Creatinine 0.62 L, Estim Creat Clear Calc 82.80, Est GFR (MDRD) Non-Af 102, BUN/Creatinine Ratio 26.5 H, Glucose 126 H, Calcium 7.2 L, Phosphorus 2.0 L, Magnesium 1.8 Micro: Microbiology 10/15/24 04:47 Blood Culture (Wb) - Anticubital Left Bacteria Detection (PCR) - Final Strep anginosus 10/15/24 04:47 Blood Culture (Wb) - Anticubital Left Blood Culture - Final Streptococcus intermedius 10/15/24 05:10 Blood Culture (Wb) - Right Hand Blood Culture - Preliminary 10/15/24 05:10 Urine, Clean Catch Urine Culture - Final Culture exhibits no growth. 10/15/24 09:45 Mucosa - Nose Respiratory Panel (PCR) - Final 10/15/24 11:10 Nasal Secretion MRSA (PCR) - Final 10/15/24 09:45 Urine Catheter - Catheter Legionella Antigen - Final 10/15/24 09:45 Urine Catheter - Catheter Streptococcus pneumoniae Antigen (M- Final Physical Exam Narrative GENERAL: cooperative HEENT: Atraumatic; scalp wound EYES; Anicteric, Normal Conjunctiva NECK; supple, normal thyroid, RESPIRATORY: Diminished to auscultation CARDIOVASCULAR: Regular S1 S2, GI: soft, normoactive bowel sounds, : No Renal angle tenderness; EXTREMITIES: No edema, no clubbing, MUSCULOSKELETAL: no muscle wasting NEURO: Awake; no lateralizing signs. SKIN: No Rash PSYCH; Flat affect Assessment & Plan Assessment/Plan (1) Prostate cancer: (2) Septic shock: PLAN: Plan Patient is a 69-year-old gentleman with recent admission for acute cholecystitiswith strep and haemophilus bacteremia who presented to the emergency department with progressive generalized weakness as well as fever. Patient was found to behypotensive admitted to the intensive care unit for further management 1. Septic shock ? Of undetermined source. Patient presented with progressive generalized weakness fever and hypotension. Given patient recent admission for acute cholecystitis with strep and haemophilus bacteremia patient was started on broad-spectrum antibiotic therapy admitted to the intensive care unit resuscitated with IV fluid and patient did not require Levophed.Patient culturesobtained so far positive for Strep anginosus. Patient was transferred from theICU to PCU following stabilization. Patient previous culture grew strep intermedius and haemophilus parainfluenza. Ordered 2D echo given patient strep bacteremia. Subsequent management decisions deferred to ID ? Patient was seen in consultation by Dr. Fatima with ID recommended for patient to be discharged home on Augmentin for 10 days ? 10/19/2024;Patient's final blood cultures positive for Streptococcus intermedius. Patient grew the same organism on 09/18/2024. 2D echo was ordered for subsequent eval. ID is on board. 2. Hypokalemia ? Corrected per protocol 3. Hypophosphatemia ? Corrected per protocol 4. Stage IV prostate cancer with mets to the bone ? Patient follows up with oncology and is currently in immunotherapy 5. Anemia ? Secondary to chronic disorder monitoring H&H and transfuse if patient becomes symptomatic or hemoglobin falls below 7 6. Thrombocytopenia Appears to be chronic will monitor 7. Squamous cell carcinoma involving the scalp ? Status post excision 4 months prior 8. Physical deconditioning ? Requested for PT OT eval and social service worker to assist with discharge planning 9. DVT prophylaxis ? Enoxaparin Charges/Coding Visit Charges Inpatient E&M: 96606 Subs Hosp L2 10/19/24 1000 <Electronically signed by Tabatha Ashley MD> Cosigner Signature (if applicable): CC: ~ Signed [facility] Work Phone: 1(384) 523-760607-15-2025 Progress note [facility] Medical Records Department [address] [place] [address] Progress Note - Hospitalist 10/19/24 0723 MR#: [id number] Acct: [id number] Name: LUTHER CASTILLO II Rep #:[id number] : 1955 69 From: Tabatha Ashley MD PCP: Dr. López Lilly MD Status :ADM IN Location: [place] [address] Reason for Visit Chief Complaint: Fever, chills, fatigue, malaise. Subjective Subjective Patient's final blood cultures positive for Streptococcus intermedius. Patient grew the same organism on 09/18/2024. 2D echo was ordered for subsequent eval. ID is on board. Objective Data Objective Data Vital Signs: Vital Signs Temp Pulse Resp BP Pulse Ox O2 Del Method O2 Flow Rate 98.2 F 77 17 140/76 H 97 Room Air 2 10/19/24 03:18 10/19/24 03:18 10/19/24 03:18 10/19/24 03:18 10/19/24 03:18 10/19/24 03:10/16/24 12:00 Oxygen Flow Rate (L/min) 2 Oxygen Delivery Method Room Air Weight: 77.1 kg Body Mass Index (BMI) 27.4 Intake & Output: Intake and Output for Last 24 Hours 10/17/24 10/18/24 10/19/24 23:59 23:59 23:59 Intake Total 5292.75 / 5772.75 3765.25 / 3765.25 Output Total 850 / 1450 1475 / 1475 Balance 4442.75 / 4322.75 2290.25 / 2290.25 Medical Nutrition Assessment Dietitian: Malnutrition Criteria Met Start: 10/16/24 14:00 Freq: Status: Active Protocol: Document 10/16/24 14:00 SB (Rec: 10/16/24 14:00 SB [id number]) Nutrition Malnutrition Evidence of Yes Malnutrition Exists Malnutrition (severe Chronic ): Evidenced By Suboptimal Energy Intake (Severe),Weight Loss (Severe) Clinical Problem Chronic Disease or Condition Related Malnutrition Etiology 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 Status Active Problem Recommendation Dietitian Adjust to liberal regular diet. Recommendations/ Will order 120ml chocolate EPHP 4x daily with medpass. Changes Will monitor weight trends. Lab / Micro Data 10/19/24 05:36 10/19/24 05:36 Labs: Laboratory Results - last 24 hr 10/18/24 05:20: WBC 5.0, RBC 3.03 L, Hgb 7.7 L, Hct 25.2 L, MCV 83.2, MCH 25.4 L, MCHC 30.6 L, RDW Std Deviation 63.2 H, RDW Coeff of Lydia 20.7 H, Plt Count 130 L, MPV 9.2, Immature Gran % (Auto) 1.000 H, Neut % (Auto) 68.2, Lymph % (Auto) 25.2, Fillmore % (Auto) 4.2, Eos % (Auto) 1.2, Baso % (Auto) 0.2, Absolute Neuts (auto) 3.4, Absolute Lymphs (auto) 1.25, Anisocytosis 1+ 10/19/24 05:36: WBC 5.1, RBC 3.13 L, Hgb 7.7 L, Hct 25.4 L, MCV 81.2, MCH 24.6 L, MCHC 30.3 L, RDW Std Deviation 61.5 H, RDW Coeff of Lydia 20.7 H, Plt Count 144 L, MPV 9.4, Immature Gran % (Auto) 1.200 H, Neut % (Auto) 69.6, Lymph % (Auto) 21.5, Fillmore % (Auto) 5.7, Eos % (Auto) 2.0, Baso % (Auto) 0.0, Absolute Neuts (auto) 3.5, Absolute Lymphs (auto) 1.09, Nucleated RBC % 0, Platelet Estimate SLT DEC, Anisocytosis 1+, Tear Drop Cells 1+, Ovalocytes 1+, Sodium 140, Potassium 3.8, Chloride 111 H, Carbon Dioxide 20.8 L, Anion Gap 9, BUN 16, Creatinine 0.62 L, Estim Creat Clear Calc 82.80, Est GFR (MDRD) Non-Af 102, BUN/Creatinine Ratio 26.5 H, Glucose 126 H, Calcium 7.2 L, Phosphorus 2.0 L, Magnesium 1.8 Micro: Microbiology 10/15/24 04:47 Blood Culture (Wb) - Anticubital Left Bacteria Detection (PCR) - Final Strep anginosus 10/15/24 04:47 Blood Culture (Wb) - Anticubital Left Blood Culture - Final Streptococcus intermedius 10/15/24 05:10 Blood Culture (Wb) - Right Hand Blood Culture - Preliminary 10/15/24 05:10 Urine, Clean Catch Urine Culture - Final Culture exhibits no growth. 10/15/24 09:45 Mucosa - Nose Respiratory Panel (PCR) - Final 10/15/24 11:10 Nasal Secretion MRSA (PCR) - Final 10/15/24 09:45 Urine Catheter - Catheter Legionella Antigen - Final 10/15/24 09:45 Urine Catheter - Catheter Streptococcus pneumoniae Antigen (M- Final Physical Exam Narrative GENERAL: cooperative HEENT: Atraumatic; scalp wound EYES; Anicteric, Normal Conjunctiva NECK; supple, normal thyroid, RESPIRATORY: Diminished to auscultation CARDIOVASCULAR: Regular S1 S2, GI: soft, normoactive bowel sounds, : No Renal angle tenderness; EXTREMITIES: No edema, no clubbing, MUSCULOSKELETAL: no muscle wasting NEURO: Awake; no lateralizing signs. SKIN: No Rash PSYCH; Flat affect Assessment & Plan Assessment/Plan (1) Prostate cancer: (2) Septic shock: PLAN: Plan Patient is a 69-year-old gentleman with recent admission for acute cholecystitiswith strep and haemophilus bacteremia who presented to the emergency department with progressive generalized weakness as well as fever. Patient was found to behypotensive admitted to the intensive care unit for further management 1. Septic shock ? Of undetermined source. Patient presented with progressive generalized weakness fever and hypotension. Given patient recent admission for acute cholecystitis with strep and haemophilus bacteremia patient was started on broad-spectrum antibiotic therapy admitted to the intensive care unit resuscita diandra with IV fluid and patient did not require Levophed.Patient culturesobtained so far positive forStrep anginosus. Patient was transferred from theICU to PCU following stabilization. Patient previous culture grew strep intermedius and haemophilus parainfluenza. Ordered 2D echo given patient strepbacteremia. Subsequent management decisions deferred to ID ? Patient was seen in consultation by Dr. Fatima with ID recommended for patient to be discharged home on Augmentin for 10 days ? 10/19/2024;Patient's final blood cultures positive for Streptococcus intermedius. Patient grew thesame organism on 09/18/2024. 2D echo was ordered for subsequent eval. ID is on board. 2. Hypokalemia ? Corrected per protocol 3. Hypophosphatemia ? Corrected per protocol 4. Stage IV prostate cancer with mets to the bone ? Patient follows up with oncology and is currently in immunotherapy 5. Anemia ? Secondary to chronic disorder monitoring H&H and transfuse if patient becomes symptomatic or hemoglobin falls below 7 6. Thrombocytopenia Appears to be chronic will monitor 7. Squamous cell carcinoma involving the scalp ? Status post excision 4 months prior 8. Physical deconditioning ? Requested for PT OT eval and social service worker to assist with discharge planning 9. DVT prophylaxis ? Enoxaparin Charges/Coding Visit Charges Inpatient E&M: 45513 Subs Hosp L2 10/19/24 1000 Cosigner Signature (if applicable): CC: ~ Signed [facility]07-14-2025 Progress note Author Rocco Fatima [facility] Note Date/Time October 18, 2024 3:00 pm [facility] Medical Records Department [address] [place] [address] Progress Note - Infect Disease 10/18/24 1459 MR#: [id number] Acct: [id number] Name: LUTHER CASTILLO II Rep #:[id number] : 1955 69 From: Rocco tinajero MD PCP: Dr. López Lilly MD Status :ADM IN Location: [place] [address] Physical Exam Narrative Feeling back to normal, no fever, no abd pain, no dental issues, no n/v/d. Const alert and no apparent distress General Appearance: cooperative Resp normal air movement and clear to auscultation bilaterally Cardio regular rate and regular rhythm GI soft to palpation, non-tender and non-distended Skin no rashes or lesions noted ID ID: Route of nutrition/ use of supplements: [] Nutritional Intake: [] IV Site: [] Loza Catheter: [] Assessment & Plan Assessment/Plan (1) Prostate cancer: (2) Septic shock: PLAN: Admit 3 weeks ago with suspected cholecystitis and strep and haemophilus bacteremia. LFTs improved, CT and US done here with no sign of infection. No focal symptoms other than back pain, but no tenderness on exam. UAgs neg. On empiric vanc/zosyn, will narrow to ceftriaxone/flagyl for now. Bcx (+) strep anginosus. Plan on discharge home with 10 days po augmentin 875mg bid. Will follow as needed 10/18/24 1500 <Electronically signed by Rocco Fatima MD> Cosigner Signature (if applicable): CC: ~ Signed [facility] Work Phone: 1(772) 351-244107-14-2025 Consult note Author Jamilah Villa [facility] Note Date/Time October 18, 2024 1:20 pm [facility] Medical Records Department [address] [place] [id number] Pharmacokinetic/Renal -Consult 10/16/24 1838 MR#: [id number] Acct: [id number] Name: LUTHER CASTILLO II Rep #:[id number] : 1955 69 From: Jamilah Villa PCP: Dr. López Lilly MD Status :ADM IN Y Location: [place] [address] Consult Antibiotic Management Pharmacy has been consulted to manage selected antibiotic: Vancomycin Type of Intervention Type of Consult: Follow-up Suspected Infection Suspected Infection: Sepsis Labs Labs: Sodium 139 mmol/L (133-145) 10/16/24 05:09 Potassium 3.4 mmol/L (3.3-5.1) 10/16/24 05:09 Chloride 113 mmol/L (98-108) H 10/16/24 05:09 Carbon Dioxide 18.3 mmol/L (21.0-32.0) L 10/16/24 05:09 Anion Gap 8 (5-15) 10/16/24 05:09 BUN 17 mg/dL (4-19) 10/16/24 05:09 Creatinine 0.82 mg/dL (0.70-1.20) 10/16/24 05:09 Est GFR (MDRD) Non-Af 94 (>60) 10/16/24 05:09 BUN/Creatinine Ratio 20.6 RATIO (10-20) H 10/16/24 05:09 Glucose 139 mg/dL (70-99) H 10/16/24 05:09 Vancomycin Trough 10.3 ug/mL (5.0-15.0) 10/16/24 17:28 Microbiology Microbiology: Microbiology 10/15/24 04:47 Blood Culture (Wb) - Anticubital Left Bacteria Detection (PCR) - Preliminary Strep anginosus 10/15/24 05:10 Blood Culture (Wb) - Right Hand Blood Culture - Preliminary 10/15/24 09:45 Mucosa - Nose Respiratory Panel (PCR) - Final 10/15/24 11:10 Nasal Secretion MRSA (PCR) - Final 10/15/24 09:45 Urine Catheter - Catheter Legionella Antigen - Final 10/15/24 09:45 Urine Catheter - Catheter Streptococcus pneumoniae Antigen (M- Final Dosing Weight Weight used for dosin.4 kg Goal Trough Goal Trough: 15-20 mcg/mL Pharmacy Plan for Drug Dosing Pharmacy Plan for Drug Dosing: VANCOMYCIN LEVEL RECEIVED Current Vancomycin Dose: 750 MG Q12H Number of Doses Received: 1 LOADING AND THEN 2 MAINTEANCE Vancomycin Level: 10.3 Hours Since Last Dose: 11 Renal Function: 0.82 MG/DL / 74.56 ML/MIN Renal Function Trend: STABLE/IMPROVING Lab/Micro: Vancomycin Plan/Comments: Even though drawn earlier than anticipated, and with the improved rental function, Level at 10.3 which is subtherapeutic. Will increase dose to 1250mg q12h. Pharmacy Service will continue to monitor and adjust dosing as required. Pending Level: 10/18/2024 @0600 Follow-Up Labs Follow-Up Labs: Trough: Vancomycin Date/Time Labs Ordered Labs to be done on [date and time ordered]: 10/18/2024 0600 10/16/24 1840 <Electronically signed by Jamilah calles> Date _ Jamilah Villa 10/18/24 1320 <Electronically signed by Rocco hoffmann MD> Cosigner Signature (if applicable): Date Rocco Fatima MD CC: ~ Signed [facility] Work Phone: 1(968) 421-699707-14-2025 Progress note [facility] Medical Records Department [address] [facility] [place] [address] Progress Note - Infect Disease 10/18/24 1459 MR#: [id number] Acct: [id number] Name: LUTHER CASTILLO II Rep #:[id number] : 1955 69 From: Rocco tinajero MD PCP: Dr. López Lilly MD Status :ADM IN Location: [place] [address] Physical Exam Narrative Feeling back to normal, no fever, no abd pain, no dental issues, no n/v/d. Const alert and no apparent distress General Appearance: cooperative Resp normal air movement and clear to auscultation bilaterally Cardio regular rate and regular rhythm GI soft to palpation, non-tender and non-distended Skin no rashes or lesions noted ID ID: Route of nutrition/ use of supplements: [] Nutritional Intake: [] IV Site: [] Loza Catheter: [] Assessment & Plan Assessment/Plan (1) Prostate cancer: (2) Septic shock: PLAN: Admit 3 weeks ago with suspected cholecystitis and strep and haemophilus bacteremia. LFTs improved, CT and US done here with no sign of infection. No focal symptoms other than back pain, but notenderness on exam. UAgs neg. On empiric vanc/zosyn, will narrow to ceftriaxone/flagyl for now. Bcx(+) strep anginosus. Plan on discharge home with 10 days po augmentin 875mg bid. Will follow as needed 10/18/24 1500 Cosigner Signature (if applicable): CC: ~ Signed [facility]07-14-2025 Consult note [facility] Medical Records Department [address] [place] [address] Pharmacokinetic/Renal -Consult 10/16/24 1838 MR#: [id number] Acct: [id number] Name: LUTHER CASTILLO II Rep #:[id number] : 1955 69 From: Jamilah Villa PCP: Dr. López Lilly MD Status :ADM IN Y Location: [place] [address] Consult Antibiotic Management Pharmacy has been consulted to manage selected antibiotic: Vancomycin Type of Intervention Type of Consult: Follow-up Suspected Infection Suspected Infection: Sepsis Labs Labs: Sodium 139 mmol/L (133-145) 10/16/24 05:09 Potassium 3.4 mmol/L (3.3-5.1) 10/16/24 05:09 Chloride 113 mmol/L (98-108) H 10/16/24 05:09 Carbon Dioxide 18.3 mmol/L (21.0-32.0) L 10/16/24 05:09 Anion Gap 8 (5-15) 10/16/24 05:09 BUN 17 mg/dL (4-19) 10/16/24 05:09 Creatinine 0.82 mg/dL (0.70-1.20) 10/16/24 05:09 Est GFR (MDRD) Non-Af 94 (>60) 10/16/24 05:09 BUN/Creatinine Ratio 20.6 RATIO (10-20) H 10/16/24 05:09 Glucose 139 mg/dL (70-99) H 10/16/24 05:09 Vancomycin Trough 10.3 ug/mL (5.0-15.0) 10/16/24 17:28 Microbiology Microbiology: Microbiology 10/15/24 04:47 Blood Culture (Wb) - Anticubital Left Bacteria Detection (PCR) - Preliminary Strep anginosus 10/15/24 05:10 Blood Culture (Wb) - Right Hand Blood Culture - Preliminary 10/15/24 09:45 Mucosa - Nose Respiratory Panel (PCR) - Final 10/15/24 11:10 Nasal Secretion MRSA (PCR) - Final 10/15/24 09:45 Urine Catheter - Catheter Legionella Antigen - Final 10/15/24 09:45 Urine Catheter - Catheter Streptococcus pneumoniae Antigen (M- Final Dosing Weight Weight used for dosin.4 kg Goal Trough Goal Trough: 15-20 mcg/mL Pharmacy Plan for Drug Dosing Pharmacy Plan for Drug Dosing: VANCOMYCIN LEVEL RECEIVED Current Vancomycin Dose: 750 MG Q12H Number of Doses Received: 1 LOADING AND THEN 2 MAINTEANCE Vancomycin Level: 10.3 Hours Since Last Dose: 11 Renal Function: 0.82 MG/DL / 74.56 ML/MIN Renal Function Trend: STABLE/IMPROVING Lab/Micro: Vancomycin Plan/Comments: Even though drawn earlier than anticipated, and with the improved rental function, Level at 10.3 which is subtherapeutic. Will increase dose to 1250mg q12h. Pharmacy Service will continue to monitor and adjust dosing as required. Pending Level: 10/18/2024 @0600 Follow-Up Labs Follow-Up Labs: Trough: Vancomycin Date/Time Labs Ordered Labs to be done on [date and time ordered]: 10/18/2024 0600 10/16/24 1840 ey> Date _ Jamilah Villa 10/18/24 1320 tahira NUNEZ> Cos[place] Signature (if applicable): Date Rocco Fatima MD CC: ~ Signed [facility]07-14-2025 Progress note Author Tabatha Ashley [facility] Note Date/Time October 18, 2024 10:5 7am [facility] Medical Records Department [address] [place] [address] Progress Note - Hospitalist 10/18/24 1039 MR#: [id number] Acct: [id number] Name: LUTHER CASTILLO II Rep #:[id number] : 1955 69 From: Tabatha Ashley MD PCP: Dr. López Lilly MD Status :ADM IN Location: [place] [address] Reason for Visit Chief Complaint: Fever, chills, fatigue, malaise. Subjective Subjective Patient is a 69-year-old gentleman with recent admission for acute cholecystitiswith strep and haemophilus bacteremia who presented to the emergency department with progressive generalized weakness as well as fever. Patient was found to behypotensive admitted to the intensive care unit for further management Objective Data Objective Data Vital Signs: Vital Signs Temp Pulse Resp BP Pulse Ox O2 Del Method O2 Flow Rate 98.1 F 78 16 151/79 H 100 Room Air 2 10/18/24 08:45 10/18/24 08:45 10/18/24 08:45 10/18/24 08:45 10/18/24 08:45 10/18/24 08:45 10/16/24 12:00 Oxygen Flow Rate (L/min) 2 Oxygen Delivery Method Room Air Weight: 77 kg Body Mass Index (BMI) 27.3 Intake & Output: Intake and Output for Last 24 Hours 10/16/24 10/17/24 10/18/24 23:59 23:59 23:59 Intake Total 6297.48 / 6297.48 5292.75 / 5772.75 1820 / 1820 Output Total 700 / 900 850 / 1450 1250 / 1250 Balance 5597.48 / 5397.48 4442.75 / 4322.75 570 / 570 Medical Nutrition Assessment Dietitian: Malnutrition Criteria Met Start: 10/16/24 14:00 Freq: Status: Active Protocol: Document 10/16/24 14:00 SB (Rec: 10/16/24 14:00 SB [id number]) Nutrition Malnutrition Evidence of Yes Malnutrition Exists Malnutrition (severe Chronic ): Evidenced By Suboptimal Energy Intake (Severe),Weight Loss (Severe) Clinical Problem Chronic Disease or Condition Related Malnutrition Etiology 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 Status Active Problem Recommendation Dietitian Adjust to liberal regular diet. Recommendations/ Will order 120ml chocolate EPHP 4x daily with medpass. Changes Will monitor weight trends. Lab / Micro Data 10/18/24 05:20 10/18/24 05:20 Labs: Laboratory Results - last 24 hr 10/18/24 05:20: WBC 5.0, RBC 3.03 L, Hgb 7.7 L, Hct 25.2 L, MCV 83.2, MCH 25.4 L, MCHC 30.6 L, RDW Std Deviation 63.2 H, RDW Coeff of Lydia 20.7 H, Plt Count 130 L, MPV 9.2, Immature Gran % (Auto) 1.000 H, Neut % (Auto) 68.2, Lymph % (Auto) 25.2, Fillmore % (Auto) 4.2, Eos % (Auto) 1.2, Baso % (Auto) 0.2, Absolute Neuts (auto) 3.4, Absolute Lymphs (auto) 1.25, Anisocytosis 1+, Sodium 144, Potassium 3.6, Chloride 116 H, Carbon Dioxide 18.3 L, Anion Gap 10, BUN 14, Creatinine 0.71, Estim Creat Clear Calc 82.75, Est GFR (MDRD) Non-Af 98, BUN/Creatinine Ratio 20.1 H, Glucose 135 H, Calcium 6.9 L, Phosphorus 2.1 L, Total Bilirubin 0.34, Direct Bilirubin 0.16, AST 24, ALT 24, Alkaline Phosphatase 120, Total Protein 5.3 L, Albumin 2.9 L, Globulin 2.4 Micro: Microbiology 10/15/24 05:10 Blood Culture (Wb) - Right Hand Blood Culture - Preliminary 10/15/24 04:47 Blood Culture (Wb) - Anticubital Left Bacteria Detection (PCR) - Final Strep anginosus 10/15/24 04:47 Blood Culture (Wb) - Anticubital Left Blood Culture - Preliminary 10/15/24 05:10 Urine, Clean Catch Urine Culture - Final Culture exhibits no growth. 10/15/24 09:45 Mucosa - Nose Respiratory Panel (PCR) - Final 10/15/24 11:10 Nasal Secretion MRSA (PCR) - Final 10/15/24 09:45 Urine Catheter - Catheter Legionella Antigen - Final 10/15/24 09:45 Urine Catheter - Catheter Streptococcus pneumoniae Antigen (M- Final Physical Exam Narrative GENERAL: cooperative HEENT: Atraumatic; scalp wound EYES; Anicteric, Normal Conjunctiva NECK; supple, normal thyroid, RESPIRATORY: Diminished to auscultation CARDIOVASCULAR: Regular S1 S2, GI: soft, normoactive bowel sounds, : No Renal angle tenderness; EXTREMITIES: No edema, no clubbing, MUSCULOSKELETAL: no muscle wasting NEURO: Awake; no lateralizing signs. SKIN: No Rash PSYCH; Flat affect Assessment & Plan Assessment/Plan (1) Hypotension: PLAN: Plan Patient is a 69-year-old gentleman with recent admission for acute cholecystitiswith strep and haemophilus bacteremia who presented to the emergency department with progressive generalized weakness as well as fever. Patient was found to behypotensive admitted to the intensive care unit for further management 1. Septic shock ? Of undetermined source. Patient presented with progressive generalized weakness fever and hypotension. Given patient recent admission for acute cholecystitis with strep and haemophilus bacteremia patient was started on broad-spectrum antibiotic therapy admitted to the intensive care unit resuscitated with IV fluid and patient did not require Levophed.Patient culturesobtained so far positive for Strep anginosus. Patient was transferred from theICU to PCU following stabilization. Patient previous culture grew strep intermedius and haemophilus parainfluenza. Ordered 2D echo given patient strep bacteremia. Subsequent management decisions deferred to ID 2. Hypokalemia ? Corrected per protocol 3. Hypophosphatemia ? Corrected per protocol 4. Stage IV prostate cancer with mets to the bone ? Patient follows up with oncology and is currently in immunotherapy 5. Anemia ? Secondary to chronic disorder monitoring H&H and transfuse if patient becomes symptomatic or hemoglobin falls below 7 6. Thrombocytopenia Appears to be chronic will monitor 7. Squamous cell carcinoma involving the scalp ? Status post excision 4 months prior 8. Physical deconditioning ? Requested for PT OT eval and social service worker to assist with discharge planning 9. DVT prophylaxis ? Enoxaparin Time spent in the patient's overall evaluation,decision-making process, review of diagnostic data, adjustment of management, discussion with other providers, nursing nursing and ancillary staff involved in patient's care documentation, 50Minutes Charges/Coding Visit Charges Inpatient E&M: 79017 Subs Hosp L3 10/18/24 1051 <Electronically signed by Tabatha Ashley MD> Cosigner Signature (if applicable): CC: ~ Signed [facility] Work Phone: [phone] Progress note [facility] Medical Records Department [address] [place] [address] Progress Note - Hospitalist 10/18/24 1039 MR#: [id number] Acct: [id number] Name: LUTHER CASTILLO II Rep #:[id number] : 1955 69 From: Tabatha Ashley MD PCP: Dr. López Lilly MD Status :ADM IN Location: [place] [address] Reason for Visit Chief Complaint: Fever, chills, fatigue, malaise. Subjective Subjective Patient is a 69-year-old gentleman with recent admission for acute cholecystitiswith strep and haemophilus bacteremia who presented to the emergency department with progressive generalized weakness as well as fever. Patient was found to behypotensive admitted to the intensive care unit for further management Objective Data Objective Data Vital Signs: Vital Signs Temp Pulse Resp BP Pulse Ox O2 Del Method O2 Flow Rate 98.1 F 78 16 151/79 H 100 Room Air 2 10/18/24 08:45 10/18/24 08:45 10/18/24 08:45 10/18/24 08:45 10/18/24 08:45 10/18/24 08:45 10/16/24 12:00 Oxygen Flow Rate (L/min) 2 Oxygen Delivery Method Room Air Weight: 77 kg Body Mass Index (BMI) 27.3 Intake & Output: Intake and Output for Last 24 Hours 10/16/24 10/17/24 10/18/24 23:59 23:59 23:59 Intake Total 6297.48 / 6297.48 5292.75 / 5772.75 1820 / 1820 Output Total 700 / 900 850 / 1450 1250 / 1250 Balance 5597.48 / 5397.48 4442.75 / 4322.75 570 / 570 Medical Nutrition Assessment Dietitian: Malnutrition Criteria Met Start: 10/16/24 14:00 Freq: Status: Active Protocol: Document 10/16/24 14:00 SB (Rec: 10/16/24 14:00 SB [id number]) Nutrition Malnutrition Evidence of Yes Malnutrition Exists Malnutrition (severe Chronic ): Evidenced By Suboptimal Energy Intake (Severe),Weight Loss (Severe) Clinical Problem Chronic Disease or Condition Related Malnutrition Etiology 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 Status Active Problem Recommendation Dietitian Adjust to liberal regular diet. Recommendations/ Will order 120ml chocolate EPHP 4x daily with medpass. Changes Will monitor weight trends. Lab / Micro Data 10/18/24 05:20 10/18/24 05:20 Labs: Laboratory Results - last 24 hr 10/18/24 05:20: WBC 5.0, RBC 3.03 L, Hgb 7.7 L, Hct 25.2 L, MCV 83.2, MCH 25.4 L, MCHC 30.6 L, RDW Std Deviation 63.2 H, RDW Coeff of Lydia 20.7 H, Plt Count 130 L, MPV 9.2, Immature Gran % (Auto) 1.000 H, Neut % (Auto) 68.2, Lymph % (Auto) 25.2, Fillmore % (Auto) 4.2, Eos % (Auto) 1.2, Baso % (Auto) 0.2, Absolute Neuts (auto) 3.4, Absolute Lymphs (auto) 1.25, Anisocytosis 1+, Sodium 144, Potassium 3.6, Chloride 116 H, Carbon Dioxide 18.3 L, Anion Gap 10, BUN 14, Creatinine 0.71, Estim Creat Clear Calc 82.75, Est GFR (MDRD) Non-Af 98, BUN/Creatinine Ratio 20.1 H, Glucose 135 H, Calcium 6.9 L, Phosphorus 2.1 L, Total Bilirubin 0.34, Direct Bilirubin 0.16, AST 24, ALT 24, Alkaline Phosphatase 120, Total Protein 5.3 L, Albumin 2.9 L, Globulin 2.4 Micro: Microbiology 10/15/24 05:10 Blood Culture (Wb) - Right Hand Blood Culture - Preliminary 10/15/24 04:47 Blood Culture (Wb) - Anticubital Left Bacteria Detection (PCR) - Final Strep anginosus 10/15/24 04:47 Blood Culture (Wb) - Anticubital Left Blood Culture - Preliminary 10/15/24 05:10 Urine, Clean Catch Urine Culture - Final Culture exhibits no growth. 10/15/24 09:45 Mucosa - Nose Respiratory Panel (PCR) - Final 10/15/24 11:10 Nasal Secretion MRSA (PCR) - Final 10/15/24 09:45 Urine Catheter - Catheter Legionella Antigen - Final 10/15/24 09:45 Urine Catheter - Catheter Streptococcus pneumoniae Antigen (M- Final Physical Exam Narrative GENERAL: cooperative HEENT: Atraumatic; scalp wound EYES; Anicteric, Normal Conjunctiva NECK; supple, normal thyroid, RESPIRATORY: Diminished to auscultation CARDIOVASCULAR: Regular S1 S2, GI: soft, normoactive bowel sounds, : No Renal angle tenderness; EXTREMITIES: No edema, no clubbing, MUSCULOSKELETAL: no muscle wasting NEURO: Awake; no lateralizing signs. SKIN: No Rash PSYCH; Flat affect Assessment & Plan Assessment/Plan (1) Hypotension: PLAN: Plan Patient is a 69-year-old gentleman with recent admission for acute cholecystitiswith strep and haemophilus bacteremia who presented to the emergency department with progressive generalized weakness as well as fever. Patient was found to behypotensive admitted to the intensive care unit for further management 1. Septic shock ? Of undetermined source. Patient presented with progressive generalized weakness fever and hypotension. Given patient recent admission for acute cholecystitis with strep and haemophilus bacteremia patient was started on broad-spectrum antibiotic therapy admitted to the intensive care unit resuscita diandra with IV fluid and patient did not require Levophed.Patient culturesobtained so far positive forStrep anginosus. Patient was transferred from theICU to PCU following stabilization. Patient previous culture grew strep intermedius and haemophilus parainfluenza. Ordered 2D echo given patient strepbacteremia. Subsequent management decisions deferred to ID 2. Hypokalemia ? Corrected per protocol 3. Hypophosphatemia ? Corrected per protocol 4. Stage IV prostate cancer with mets to the bone ? Patient follows up with oncology and is currently in immunotherapy 5. Anemia ? Secondary to chronic disorder monitoring H&H and transfuse if patient becomes symptomatic or hemoglobin falls below 7 6. Thrombocytopenia Appears to be chronic will monitor 7. Squamous cell carcinoma involving the scalp ? Status post excision 4 months prior 8. Physical deconditioning ? Requested for PT OT eval and social service worker to assist with discharge planning 9. DVT prophylaxis ? Enoxaparin Time spent in the patient's overall evaluation,decision-making process, review of diagnostic data, adjustment of management, discussion with other providers, nursing nursing and ancillary staff involved in patient's care documentation, 50Minutes Charges/Coding Visit Charges Inpatient E&M: 66528 Subs Hosp L3 10/18/24 1057 Cosigner Signature (if applicable): CC: ~ Signed [facility]07-13-2025 Progress note Author Jose David Soliz [facility] Note Date/Time October 17, 2024 3:26 pm [facility] Medical Records Department [address] [place] [address] Progress Note - Soft Sugar Supervisor 10/17/24 1328 MR#: [id number] Acct: [id number] Name: LUTHER CASTILLO II Rep #:[id number] : 1955 69 From: Jose David Daigle PCP: Dr. López Lilly MD Status :ADM IN Location: ICU ICU01-1 Objective Data Objective Data Vital Signs: Vital Signs Last response 3 Temperature 36.8 C 10/17/24 10:00 Temperature Source Temporal 10/17/24 10:00 Pulse Rate 78 10/17/24 10:00 Respiratory Rate 21 H 10/17/24 10:00 Respiratory Effort Normal, Non-Labored 10/17/24 09:28 Respiratory Depth Normal 10/17/24 09:28 Respiratory Pattern Normal 10/17/24 09:28 Blood Pressure 113/68 10/17/24 10:00 Blood Pressure Mean 83 10/17/24 10:00 Blood Pressure Source Monitor 10/17/24 08:00 Blood Pressure Position Sitting 10/17/24 08:00 Blood Pressure Location Right Arm 10/17/24 08:00 Pulse Ox 98 10/17/24 10:00 Oxygen Delivery Method Room Air 10/17/24 10:00 Oxygen Flow Rate (L/min) 2 10/16/24 12:00 I&O: I&O Last 24 Hours 3 10/16/24 10/17/24 10/17/24 23:59 11:59 23:59 Intake Total 2791.22 / 6297.48 2387.75 / 2747.75 360 / 2747.75 Output Total 200 / 900 850 / 850 Balance 2591.22 / 5397.48 1537.75 / 1897.75 360 / 1897.75 I&O: Total Stay 3 10/15/24 04:33 thru 10/17/24 12:00 Intake Total 07297.03 Output Total 2800 Balance 60496.03 Current Meds Ordered / Administered: Current meds ordered / Administered 3 Generic Name Dose Route Start Last Admin Trade Name Freq PRN Reason Stop Dose Admin Acetaminophen 650 mg 10/15/24 10:23 Acetaminophen 325 Mg Tablet PO Q4H PRN PRN Fever, pain 1-10/10 Acetaminophen 650 mg 10/15/24 10:23 Acetaminophen 650 Mg Suppository RC Q4H PRN PRN Fever, pain 1-10 Al Hydroxide/Mg Hydroxide 30 ml 10/15/24 10:23 Mag Hydrox/Al Hydrox/Simeth 30 Ml Udc PO Q6H PRN PRN Gastric Burning Albuterol Sulfate 2.5 mg 10/15/24 10:23 Albuterol 2.5 Mg/3 Ml Vial.Neb. INHALATION Q2H PRN PRN Dyspnea, wheezing Atorvastatin Calcium 20 mg 10/17/24 22:00 Atorvastatin Calcium 20 Mg Tablet PO QHS [facility] Calamine/Phenol 1 applic 10/15/24 11:00 10/17/24 08:13 Menthol/Lanolin/Calamine/Znox 113 Gm Tube TOPICAL Not Given 4X/DAY [facility] Protocol Enoxaparin Sodium 40 mg 10/15/24 11:00 10/17/24 09:15 Enoxaparin 40 Mg/0.4 Ml Syringe SC 40 mg DAILY KATI Administration Famotidine 20 mg 10/15/24 11:00 10/17/24 08:14 Famotidine 20 Mg Tablet PO 20 mg BID KATI Administration Guaifenesin 10 ml 10/15/24 10:23 Guaifenesin 10 Ml Udc (200mg/10ml) PO Q4H PRN PRN COUGH Piperacillin Sod/Tazobactam 50 mls @ 12.5 mls/hr 10/15/24 14:00 10/17/24 10:35 Sod 3.375 gm/ Sodium Chloride IV Infused Q8 KATI Infusion Sodium Chloride 1,000 mls @ 150 mls/hr 10/15/24 10:23 10/17/24 09:22 IV 150 mls/hr .Q6H40M KATI Administration Sodium Chloride 250 mls @ 15 mls/hr 10/15/24 10:30 10/17/24 09:33 IV 0 mls/hr .[id number] PRN Infusion Saline Flush Sodium Chloride 250 mls @ 15 mls/hr 10/15/24 10:30 IV .[id number] PRN Additional IVPB Infusion Melatonin 3 mg 10/15/24 22:00 Melatonin 3 Mg Tablet PO QHS PRN PRN INSOMNIA Midodrine 10 mg 10/15/24 10:10 10/17/24 11:56 Midodrine Hcl 5 Mg Tablet PO 10 mg TIDCM KATI Administration Nutritional Formula (Lactose Free) 120 ml 10/15/24 18:00 10/17/24 09:26 Ensure Plus High Protein 120 Ml Liquid PO 120 ml 4X/DAY KATI Administration Ondansetron HCl 4 mg 10/15/24 10:23 Ondansetron 4 Mg/2 Ml Vial IV Q8H PRN PRN NAUSEA/VOMITING Potassium Phos/Sodium Phos 1 packet 10/17/24 08:00 10/17/24 11:56 Na Biphos/Potassium Phosphate Packet PO 10/17/24 17:01 1 packet TIDCM KATI Administration Prednisone 10 mg 10/17/24 10:00 10/17/24 09:15 Prednisone 10 Mg Tablet PO 10 mg BID KAIT Administration Prochlorperazine Edisylate 5 mg 10/15/24 10:23 Prochlorperazine 10 Mg/2 Ml Vial IV Q4H PRN PRN Breakthrough Nausea/Vomiting Senna/Docusate Sodium 2 tablet 10/15/24 11:00 Senna/Docusate Sodium 1 Tablet PO BID PRN PRN Constipation Sodium Chloride 10 - 40 ml 10/15/24 10:30 10/17/24 05:34 0.9% Saline Lock 10 Ml Syringe IV 10 ml UD PRN Administration SALINE FLUSH Tamsulosin HCl 0.4 mg 10/15/24 11:00 10/17/24 08:14 Tamsulosin Hcl 0.4 Mg Capsule PO 0.4 mg DAILY KATI Administration Medical Records Data Medical Nutrition Assessment Dietitian: Malnutrition Criteria Met Start: 10/16/24 14:00 Freq: Status: Active Protocol: Document 10/16/24 14:00 SB (Rec: 10/16/24 14:00 SB [id number]) Nutrition Malnutrition Evidence of Yes Malnutrition Exists Malnutrition (severe Chronic ): Evidenced By Suboptimal Energy Intake (Severe),Weight Loss (Severe) Clinical Problem Chronic Disease or Condition Related Malnutrition Etiology 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 Status Active Problem Recommendation Dietitian Adjust to liberal regular diet. Recommendations/ Will order 120ml chocolate EPHP 4x daily with medpass. Changes Will monitor weight trends. Lab / Micro Data 10/17/24 04:35 10/17/24 04:35 Labs: Laboratory Results - last 24 hr 10/16/24 17:28: Vancomycin Trough 10.3 10/17/24 04:35: WBC 4.9, RBC 2.92 L, Hgb 7.4 L, Hct 24.3 L, MCV 83.2, MCH 25.3 L, MCHC 30.5 L, RDW Std Deviation 62.7 H, RDW Coeff of Lydia 20.5 H, Plt Count 103 L, MPV 9.0, Immature Gran % (Auto) 0.600, Neut % (Auto) 78.0 H, Lymph % (Auto) 17.7 L, Fillmore % (Auto) 3.5, Eos % (Auto) 0.2, Baso % (Auto) 0.0, Absolute Neuts (auto) 3.8, Absolute Lymphs (auto) 0.86, Nucleated RBC % 0, Differential CommentSCANNED, Anisocytosis 3+, Microcytosis 1+, Ovalocytes 2+, Christiana Cells 1+, Sodium 141, Potassium 3.2 L, Chloride 115 H, Carbon Dioxide 18.4 L, Anion Gap 8, BUN 16, Creatinine 0.63 L, Estim Creat Clear Calc 76.43, Est GFR (MDRD) Non-Af 102, BUN/Creatinine Ratio 24.5 H, Glucose 155 H, Calcium 7.0 L, Phosphorus 1.9 L, Magnesium 1.8, Total Bilirubin 0.37, Direct Bilirubin 0.18, AST 19, ALT 15, Alkaline Phosphatase 106, Total Protein 5.3 L, Albumin 2.9 L, Globulin 2.4 Micro: Microbiology 10/15/24 05:10 Urine, Clean Catch Urine Culture - Final Culture exhibits no growth. 10/15/24 04:47 Blood Culture (Wb) - Anticubital Left Bacteria Detection (PCR) - Preliminary Strep anginosus 10/15/24 04:47 Blood Culture (Wb) - Anticubital Left Blood Culture - Preliminary Assessment and Plan . Assessment and plan: HPI Patient seen and examined Chart and data reviewed He feels well NE is off BCX - (?) Strep Defer ABX to ID team EXAM GEN NAD VS as above HEENT O2 N/C NECK obese COR RRR CHEST CTA ABD soft EXT minimal edema SKIN w/d JAMES NF ASSESSMENT 1. Presumed sepsis syndrome 2. (?) recurrent bacteremia 3. Advanced prostate CA - immunosuppressed -ABX -f/u CX -ID opinion noted -VTE ppx -IV hydrocortisone - changed to prednisone Critical Care Time: 50 minutes The entirety of this encounter was done via Telemedicine 10/17/24 1526 <Electronically signed by Jose David Soliz MD> Cosigner Signature (if applicable): CC: ~ Signed [facility] Work Phone: [phone]) 540-529707-13-2025 Progress note Author Jose David Soliz [facility] Note Date/Time October 17, 2024 1:28 pm [facility] Medical Records Department [address] [place] [id number] Progress Note - Soft Sugar Supervisor 10/16/249 MR#: [id number] Acct: [id number] Name: LUTHER CASTILLO II Rep #:[id number] : 1955 69 From: Jose David Daigle PCP: Dr. López Lilly MD Status :ADM IN Location: ICU ICU01-[address] Jose David Soliz MD on 10/17/24 at 1328 Objective Data Objective Data Vital Signs: Vital Signs Last response 3 Temperature 36.8 C 10/17/24 10:00 Temperature Source Temporal 10/17/24 10:00 Pulse Rate 78 10/17/24 10:00 Respiratory Rate 21 H 10/17/24 10:00 Respiratory Effort Normal, Non-Labored 10/17/24 09:28 Respiratory Depth Normal 10/17/24 09:28 Respiratory Pattern Normal 10/17/24 09:28 Blood Pressure 113/68 10/17/24 10:00 Blood Pressure Mean 83 10/17/24 10:00 Blood Pressure Source Monitor 10/17/24 08:00 Blood Pressure Position Sitting 10/17/24 08:00 Blood Pressure Location Right Arm 10/17/24 08:00 Pulse Ox 98 10/17/24 10:00 Oxygen Delivery Method Room Air 10/17/24 10:00 Oxygen Flow Rate (L/min) 2 10/16/24 12:00 I&O: I&O Last 24 Hours 3 10/16/24 10/17/24 10/17/24 23:59 11:59 23:59 Intake Total 2791.22 / 6297.48 2387.75 / 2747.75 360 / 2747.75 Output Total 200 / 900 850 / 850 Balance 2591.22 / 5397.48 1537.75 / 1897.75 360 / 1897.75 I&O: Total Stay 3 10/15/24 04:33 thru 10/17/24 12:00 Intake Total 85153.03 Output Total 2800 Balance 98350.03 Current Meds Ordered / Administered: Current meds ordered / Administered 3 Generic Name Dose Route Start Last Admin Trade Name Freq PRN Reason Stop Dose Admin Acetaminophen 650 mg 10/15/24 10:23 Acetaminophen 325 Mg Tablet PO Q4H PRN PRN Fever, pain 1-10/10 Acetaminophen 650 mg 10/15/24 10:23 Acetaminophen 650 Mg Suppository RC Q4H PRN PRN Fever, pain 1-10 Al Hydroxide/Mg Hydroxide 30 ml 10/15/24 10:23 Mag Hydrox/Al Hydrox/Simeth 30 Ml Udc PO Q6H PRN PRN Gastric Burning Albuterol Sulfate 2.5 mg 10/15/24 10:23 Albuterol 2.5 Mg/3 Ml Vial.Neb. INHALATION Q2H PRN PRN Dyspnea, wheezing Atorvastatin Calcium 20 mg 10/17/24 22:00 Atorvastatin Calcium 20 Mg Tablet PO QHS [facility] Calamine/Phenol 1 applic 10/15/24 11:00 10/17/24 08:13 Menthol/Lanolin/Calamine/Znox 113 Gm Tube TOPICAL Not Given 4X/DAY [facility] Protocol Enoxaparin Sodium 40 mg 10/15/24 11:00 10/17/24 09:15 Enoxaparin 40 Mg/0.4 Ml Syringe SC 40 mg DAILY KATI Administration Famotidine 20 mg 10/15/24 11:00 10/17/24 08:14 Famotidine 20 Mg Tablet PO 20 mg BID KATI Administration Guaifenesin 10 ml 10/15/24 10:23 Guaifenesin 10 Ml Udc (200mg/10ml) PO Q4H PRN PRN COUGH Piperacillin Sod/Tazobactam 50 mls @ 12.5 mls/hr 10/15/24 14:00 10/17/24 10:35 Sod 3.375 gm/ Sodium Chloride IV Infused Q8 KATI Infusion Sodium Chloride 1,000 mls @ 150 mls/hr 10/15/24 10:23 10/17/24 09:22 IV 150 mls/hr .Q6H40M KATI Administration Sodium Chloride 250 mls @ 15 mls/hr 10/15/24 10:30 10/17/24 09:33 IV 0 mls/hr .[id number] PRN Infusion Saline Flush Sodium Chloride 250 mls @ 15 mls/hr 10/15/24 10:30 IV .[id number] PRN Additional IVPB Infusion Melatonin 3 mg 10/15/24 22:00 Melatonin 3 Mg Tablet PO QHS PRN PRN INSOMNIA Midodrine 10 mg 10/15/24 10:10 10/17/24 11:56 Midodrine Hcl 5 Mg Tablet PO 10 mg TIDCM KATI Administration Nutritional Formula (Lactose Free) 120 ml 10/15/24 18:00 10/17/24 09:26 Ensure Plus High Protein 120 Ml Liquid PO 120 ml 4X/DAY KATI Administration Ondansetron HCl 4 mg 10/15/24 10:23 Ondansetron 4 Mg/2 Ml Vial IV Q8H PRN PRN NAUSEA/VOMITING Potassium Phos/Sodium Phos 1 packet 10/17/24 08:00 10/17/24 11:56 Na Biphos/Potassium Phosphate Packet PO 10/17/24 17:01 1 packet TIDCM KATI Administration Prednisone 10 mg 10/17/24 10:00 10/17/24 09:15 Prednisone 10 Mg Tablet PO 10 mg BID KATI Administration Prochlorperazine Edisylate 5 mg 10/15/24 10:23 Prochlorperazine 10 Mg/2 Ml Vial IV Q4H PRN PRN Breakthrough Nausea/Vomiting Senna/Docusate Sodium 2 tablet 10/15/24 11:00 Senna/Docusate Sodium 1 Tablet PO BID PRN PRN Constipation Sodium Chloride 10 - 40 ml 10/15/24 10:30 10/17/24 05:34 0.9% Saline Lock 10 Ml Syringe IV 10 ml UD PRN Administration SALINE FLUSH Tamsulosin HCl 0.4 mg 10/15/24 11:00 10/17/24 08:14 Tamsulosin Hcl 0.4 Mg Capsule PO 0.4 mg DAILY KATI Administration 10/17/24 1328<Electronically signed by Jose David Soliz MD> Cosigner Signature (if applicable): cc: ~* Signed Objective Data Objective Data Vital Signs: Vital Signs Last response 3 Temperature 36.6 C 10/16/24 15:00 Temperature Source Temporal 10/16/24 15:00 Pulse Rate 84 10/16/24 19:00 Respiratory Rate 30 H 10/16/24 19:00 Respiratory Effort Normal, Non-Labored 10/16/24 20:42 Respiratory Depth Normal 10/16/24 20:42 Respiratory Pattern Normal 10/16/24 20:42 Blood Pressure 129/65 H 10/16/24 19:00 Blood Pressure Mean 86 10/16/24 19:00 Blood Pressure Source Monitor 10/16/24 12:00 Blood Pressure Position Semi-Fowlers 10/16/24 12:00 Blood Pressure Location Left Forearm 10/16/24 12:00 Pulse Ox 100 10/16/24 19:00 Oxygen Delivery Method Room Air 10/16/24 20:42 Oxygen Flow Rate (L/min) 2 10/16/24 12:00 I&O: I&O Last 24 Hours 3 10/15/24 10/16/24 10/16/24 23:59 11:59 23:59 Intake Total 2044.30 / 5616.60 3506.26 / 6290.51 2784.25 / 6290.51 Output Total 900 / 1250 500 / 700 200 / 700 Balance 1144.30 / 4366.60 3006.26 / 5590.51 2584.25 / 5590.51 I&O: Total Stay 3 10/15/24 04:33 thru 10/16/24 20:38 Intake Total 45716.31 Output Total 1950 Balance 9953.31 Current Meds Ordered / Administered: Current meds ordered / Administered 3 Generic Name Dose Route Start Last Admin Trade Name Freq PRN Reason Stop Dose Admin Acetaminophen 650 mg 10/15/24 10:23 Acetaminophen 325 Mg Tablet PO Q4H PRN PRN Fever, pain 1-01/14 Acetaminophen 650 mg 10/15/24 10:23 Acetaminophen 650 Mg Suppository RC Q4H PRN PRN Fever, pain 1-10 Al Hydroxide/Mg Hydroxide 30 ml 10/15/24 10:23 Mag Hydrox/Al Hydrox/Simeth 30 Ml Udc PO Q6H PRN PRN Gastric Burning Albuterol Sulfate 2.5 mg 10/15/24 10:23 Albuterol 2.5 Mg/3 Ml Vial.Neb. INHALATION Q2H PRN PRN Dyspnea, wheezing Calamine/Phenol 1 applic 10/15/24 11:00 10/16/24 20:53 Menthol/Lanolin/Calamine/Znox 113 Gm Tube TOPICAL Not Given 4X/DAY KATI Protocol Enoxaparin Sodium 40 mg 10/15/24 11:00 10/16/24 10:13 Enoxaparin 40 Mg/0.4 Ml Syringe SC 40 mg DAILY KATI Administration Famotidine 20 mg 10/15/24 11:00 10/16/24 20:58 Famotidine 20 Mg Tablet PO 20 mg BID KATI Administration Guaifenesin 10 ml 10/15/24 10:23 Guaifenesin 10 Ml Udc (200mg/10ml) PO Q4H PRN PRN COUGH Hydrocortisone Sodium Succinate 50 mg 10/15/24 11:00 10/16/24 17:17 Hydrocortisone Sod Succinate 100 Mg/2 Ml Vial IV 50 mg Q6 KATI Administration Norepinephrine Bitartrate 8 mg 250 mls @ 9.375 mls/hr 10/15/24 08:10 10/16/2518:00 / Sodium Chloride CONT INF 1 mcg/min .[id number] KATI 1.9 mls/hr Titration Protocol 5 MCG/MIN Piperacillin Sod/Tazobactam 50 mls @ 12.5 mls/hr 10/15/24 14:00 10/16/24 21:12 Sod 3.375 gm/ Sodium Chloride IV 12.5 mls/hr Q8 KATI Administration Vancomycin IV-PHARMACY TO DOSE 500 mls @ 250 mls/hr 10/15/24 10:23 1 each/ Sodium Chloride IV PRN PRN Rx to Dose Protocol Sodium Chloride 1,000 mls @ 150 mls/hr 10/15/24 10:23 10/16/24 20:38 IV 150 mls/hr .Q6H40M KATI Administration Sodium Chloride 250 mls @ 15 mls/hr 10/15/24 10:30 10/15/24 22:10 IV 0 mls/hr .[id number] PRN Infusion Saline Flush Sodium Chloride 250 mls @ 15 mls/hr 10/15/24 10:30 IV .[id number] PRN Additional IVPB Infusion Vancomycin HCl 1,250 mg/ 275 mls @ 167 mls/hr 10/16/24 18:30 10/16/24 20:38 Sodium Chloride IV Infused Q12H KATI Infusion Melatonin 3 mg 10/15/24 22:00 Melatonin 3 Mg Tablet PO QHS PRN PRN INSOMNIA Midodrine 10 mg 10/15/24 10:10 10/16/24 17:16 Midodrine Hcl 5 Mg Tablet PO 10 mg TIDCM KATI Administration Nutritional Formula (Lactose Free) 120 ml 10/15/24 18:00 10/16/24 20:52 Ensure Plus High Protein 120 Ml Liquid PO Not Given 4X/DAY [facility] Ondansetron HCl 4 mg 10/15/24 10:23 Ondansetron 4 Mg/2 Ml Vial IV Q8H PRN PRN NAUSEA/VOMITING Prochlorperazine Edisylate 5 mg 10/15/24 10:23 Prochlorperazine 10 Mg/2 Ml Vial IV Q4H PRN PRN Breakthrough Nausea/Vomiting Senna/Docusate Sodium 2 tablet 10/15/24 11:00 Senna/Docusate Sodium 1 Tablet PO BID PRN PRN Constipation Sodium Chloride 10 - 40 ml 10/15/24 10:30 10/16/24 20:58 0.9% Saline Lock 10 Ml Syringe IV 10 ml UD PRN Administration SALINE FLUSH Tamsulosin HCl 0.4 mg 10/15/24 11:00 10/16/24 10:13 Tamsulosin Hcl 0.4 Mg Capsule PO 0.4 mg DAILY KATI Administration Vancomycin Protocol 1 lab 10/18/24 05:00 Vancomycin Trough/Random Due MC 10/18/24 07:00 DAILY [facility] Medical Records Data Medical Nutrition Assessment Dietitian: Malnutrition Criteria Met Start: 10/16/24 14:00 Freq: Status: Active Protocol: Document 10/16/24 14:00 SB (Rec: 10/16/24 14:00 SB [id number]) Nutrition Malnutrition Evidence of Yes Malnutrition Exists Malnutrition (severe Chronic ): Evidenced By Suboptimal Energy Intake (Severe),Weight Loss (Severe) Clinical Problem Chronic Disease or Condition Related Malnutrition Etiology 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 Status Active Problem Recommendation Dietitian Adjust to liberal regular diet. Recommendations/ Will order 120ml chocolate EPHP 4x daily with medpass. Changes Will monitor weight trends. Lab / Micro Data 10/16/24 05:09 10/16/24 05:09 Labs: Laboratory Results - last 24 hr 10/16/24 05:09: WBC 7.8, RBC 3.26 L, Hgb 8.1 L, Hct 27.2 L, MCV 83.4, MCH 24.8 L, MCHC 29.8 L, RDW Std Deviation 63.1 H, RDW Coeff of Lydia 20.6 H, Plt Count 116 L, MPV 8.9, Immature Gran % (Auto) 0.500, Neut % (Auto) 86.2 H, Lymph % (Auto) 9.7 L, Fillmore % (Auto) 3.4, Eos % (Auto) 0.1, Baso % (Auto) 0.1, Absolute Neuts (auto) 6.8, Absolute Lymphs (auto) 0.76 L, Nucleated RBC % 0, Anisocytosis 1+, Sodium 139, Potassium 3.4, Chloride 113 H, Carbon Dioxide 18.3 L, Anion Gap 8, BUN 17, Creatinine 0.82, Estim Creat Clear Calc 74.56, Est GFR (MDRD) Non-Af 94,BUN/Creatinine Ratio 20.6 H, Glucose 139 H, Calcium 7.2 L, Phosphorus 2.7, Magnesium 1.8, Total Bilirubin 0.64, Direct Bilirubin 0.34 H, AST 20, ALT 16, Alkaline Phosphatase 107, Total Protein 5.4 L, Albumin 2.9 L, Globulin 2.5, Cortisol AM Sample 25.70 H 10/16/24 06:08: Cortisol AM Sample 75.40 H 10/16/24 17:28: Vancomycin Trough 10.3 Micro: Microbiology 10/15/24 04:47 Blood Culture (Wb) - Anticubital Left Bacteria Detection (PCR) - Preliminary Strep anginosus 10/15/24 05:10 Blood Culture (Wb) - Right Hand Blood Culture - Preliminary Assessment and Plan . Assessment and plan: HPI Patient seen and examined Chart and data reviewed He feels well On and off low doses NE for BP BCX - (?) Strep Lab noted EXAM GEN NAD VS as above HEENT O2 N/C NECK obese COR RRR CHEST CTA ABD soft EXT minimal edema SKIN w/d JAMES NF ASSESSMENT 1. Presumed sepsis syndrome 2. (?) recurrent bacteremia 3. Advanced prostate CA - immunosuppressed -NE as needed -ABX -f/u CX -ID opinion noted -VTE ppx -IV hydrocortisone Critical Care Time: 50 minutes The entirety of this encounter was done via Telemedicine 10/16/242201 <Electronically signed by Jose David Soliz MD> Cosigner Signature (if applicable): CC: ~ Signed [facility] Work Phone: [phone]) 576-362507-13-2025 Progress note [facility] Medical Records Department [address] [place] [id number] Progress Note - Soft Sugar Supervisor 10/17/24 1328 MR#: [id number] Acct: [id number] Name: LUTHER CASTILLO II Rep #:[id number] : 1955 69 From: Jose David Daigle PCP: Dr. López Lilly MD Status :ADM IN Location: ICU ICU01-1 Objective Data Objective Data Vital Signs: Vital Signs Last response 3 Temperature 36.8 C 10/17/24 10:00 Temperature Source Temporal 10/17/24 10:00 Pulse Rate 78 10/17/24 10:00 Respiratory Rate 21 H 10/17/24 10:00 Respiratory Effort Normal, Non-Labored 10/17/24 09:28 Respiratory Depth Normal 10/17/24 09:28 Respiratory Pattern Normal 10/17/24 09:28 Blood Pressure 113/68 10/17/24 10:00 Blood Pressure Mean 83 10/17/24 10:00 Blood Pressure Source Monitor 10/17/24 08:00 Blood Pressure Position Sitting 10/17/24 08:00 Blood Pressure Location Right Arm 10/17/24 08:00 Pulse Ox 98 10/17/24 10:00 Oxygen Delivery Method Room Air 10/17/24 10:00 Oxygen Flow Rate (L/min) 2 10/16/24 12:00 I&O: I&O Last 24 Hours 3 10/16/24 10/17/24 10/17/24 23:59 11:59 23:59 Intake Total 2791.22 / 6297.48 2387.75 / 2747.75 360 / 2747.75 Output Total 200 / 900 850 / 850 Balance 2591.22 / 5397.48 1537.75 / 1897.75 360 / 1897.75 I&O: Total Stay 3 10/15/24 04:33 thru 10/17/24 12:00 Intake Total 01429.03 Output Total 2800 Balance 77831.03 Current Meds Ordered / Administered: Current meds ordered / Administered 3 Generic Name Dose Route Start Last Admin Trade Name Freq PRN Reason Stop Dose Admin Acetaminophen 650 mg 10/15/24 10:23 Acetaminophen 325 Mg Tablet PO Q4H PRN PRN Fever, pain 1-10/10 Acetaminophen 650 mg 10/15/24 10:23 Acetaminophen 650 Mg Suppository RC Q4H PRN PRN Fever, pain 1-10 Al Hydroxide/Mg Hydroxide 30 ml 10/15/24 10:23 Mag Hydrox/Al Hydrox/Simeth 30 Ml Udc PO Q6H PRN PRN Gastric Burning Albuterol Sulfate 2.5 mg 10/15/24 10:23 Albuterol 2.5 Mg/3 Ml Vial.Neb. INHALATION Q2H PRN PRN Dyspnea, wheezing Atorvastatin Calcium 20 mg 10/17/24 22:00 Atorvastatin Calcium 20 Mg Tablet PO QHS [facility] Calamine/Phenol 1 applic 10/15/24 11:00 10/17/24 08:13 Menthol/Lanolin/Calamine/Znox 113 Gm Tube TOPICAL Not Given 4X/DAY [facility] Protocol Enoxaparin Sodium 40 mg 10/15/24 11:00 10/17/24 09:15 Enoxaparin 40 Mg/0.4 Ml Syringe SC 40 mg DAILY KATI Administration Famotidine 20 mg 10/15/24 11:00 10/17/24 08:14 Famotidine 20 Mg Tablet PO 20 mg BID [facility] Administration Guaifenesin 10 ml 10/15/24 10:23 Guaifenesin 10 Ml Udc (200mg/10ml) PO Q4H PRN PRN COUGH Piperacillin Sod/Tazobactam 50 mls @ 12.5 mls/hr 10/15/24 14:00 10/17/24 10:35 Sod 3.375 gm/ Sodium Chloride IV Infused Q8 KATI Infusion Sodium Chloride 1,000 mls @ 150 mls/hr 10/15/24 10:23 10/17/24 09:22 IV 150 mls/hr .[id number] KATI Administration Sodium Chloride 250 mls @ 15 mls/hr 10/15/24 10:30 10/17/24 09:33 IV 0 mls/hr .[id number] PRN Infusion Saline Flush Sodium Chloride 250 mls @ 15 mls/hr 10/15/24 10:30 IV .[id number] PRN Additional IVPB Infusion Melatonin 3 mg 10/15/24 22:00 Melatonin 3 Mg Tablet PO QHS PRN PRN INSOMNIA Midodrine 10 mg 10/15/24 10:10 10/17/24 11:56 Midodrine Hcl 5 Mg Tablet PO 10 mg TIDCM KATI Administration Nutritional Formula (Lactose Free) 120 ml 10/15/24 18:00 10/17/24 09:26 Ensure Plus High Protein 120 Ml Liquid PO 120 ml 4X/DAY KATI Administration Ondansetron HCl 4 mg 10/15/24 10:23 Ondansetron 4 Mg/2 Ml Vial IV Q8H PRN PRN NAUSEA/VOMITING Potassium Phos/Sodium Phos 1 packet 10/17/24 08:00 10/17/24 11:56 Na Biphos/Potassium Phosphate Packet PO 10/17/24 17:01 1 packet TIDCM KATI Administration Prednisone 10 mg 10/17/24 10:00 10/17/24 09:15 Prednisone 10 Mg Tablet PO 10 mg BID KATI Administration Prochlorperazine Edisylate 5 mg 10/15/24 10:23 Prochlorperazine 10 Mg/2 Ml Vial IV Q4H PRN PRN Breakthrough Nausea/Vomiting Senna/Docusate Sodium 2 tablet 10/15/24 11:00 Senna/Docusate Sodium 1 Tablet PO BID PRN PRN Constipation Sodium Chloride 10 - 40 ml 10/15/24 10:30 10/17/24 05:34 0.9% Saline Lock 10 Ml Syringe IV 10 ml UD PRN Administration SALINE FLUSH Tamsulosin HCl 0.4 mg 10/15/24 11:00 10/17/24 08:14 Tamsulosin Hcl 0.4 Mg Capsule PO 0.4 mg DAILY KATI Administration Medical Records Data Medical Nutrition Assessment Dietitian: Malnutrition Criteria Met Start: 10/16/24 14:00 Freq: Status: Active Protocol: Document 10/16/24 14:00 SB (Rec: 10/16/24 14:00 SB [id number]) Nutrition Malnutrition Evidence of Yes Malnutrition Exists Malnutrition (severe Chronic ): Evidenced By Suboptimal Energy Intake (Severe),Weight Loss (Severe) Clinical Problem Chronic Disease or Condition Related Malnutrition Etiology 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 Status Active Problem Recommendation Dietitian Adjust to liberal regular diet. Recommendations/ Will order 120ml chocolate EPHP 4x daily with medpass. Changes Will monitor weight trends. Lab / Micro Data 10/17/24 04:35 10/17/24 04:35 Labs: Laboratory Results - last 24 hr 10/16/24 17:28: Vancomycin Trough 10.3 10/17/24 04:35: WBC 4.9, RBC 2.92 L, Hgb 7.4 L, Hct 24.3 L, MCV 83.2, MCH 25.3 L, MCHC 30.5 L, RDW Std Deviation 62.7 H, RDW Coeff of Lydia 20.5 H, Plt Count 103 L, MPV 9.0, Immature Gran % (Auto) 0.600, Neut % (Auto) 78.0 H, Lymph % (Auto) 17.7 L, Fillmore % (Auto) 3.5, Eos % (Auto) 0.2, Baso % (Auto) 0.0, Absolute Neuts (auto) 3.8, Absolute Lymphs (auto) 0.86, Nucleated RBC % 0, Differential CommentSCANNED, Anisocytosis 3+, Microcytosis 1+, Ovalocytes 2+, Christiana Cells 1+, Sodium 141, Potassium 3.2 L,Chloride 115 H, Carbon Dioxide 18.4 L, Anion Gap 8, BUN 16, Creatinine 0.63 L, Estim Creat Clear Calc 76.43, Est GFR (MDRD) Non-Af 102, BUN/Creatinine Ratio 24.5 H, Glucose 155 H, Calcium 7.0 L, Phosphorus 1.9 L, Magnesium 1.8, Total Bilirubin 0.37, Direct Bilirubin 0.18, AST 19, ALT 15, Alkaline Phosphatase 106, Total Protein 5.3 L, Albumin 2.9 L, Globulin 2.4 Micro: Microbiology 10/15/24 05:10 Urine, Clean Catch Urine Culture - Final Culture exhibits no growth. 10/15/24 04:47 Blood Culture (Wb) - Anticubital Left Bacteria Detection (PCR) - Preliminary Strep anginosus 10/15/24 04:47 Blood Culture (Wb) - Anticubital Left Blood Culture - Preliminary Assessment and Plan . Assessment and plan: HPI Patient seen and examined Chart and data reviewed He feels well NE is off BCX - (?) Strep Defer ABX to ID team EXAM GEN NAD VS as above HEENT O2 N/C NECK obese COR RRR CHEST CTA ABD soft EXT minimal edema SKIN w/d JAMES NF ASSESSMENT 1. Presumed sepsis syndrome 2. (?) recurrent bacteremia 3. Advanced prostate CA - immunosuppressed -ABX -f/u CX -ID opinion noted -VTE ppx -IV hydrocortisone - changed to prednisone Critical Care Time: 50 minutes The entirety of this encounter was done via Telemedicine 10/17/24 1526 Cosigner Signature (if applicable): CC: ~ Signed [facility]07-13-2025 Progress note [facility] Medical Records Department [address] [place] [address] Progress Note - Soft Sugar Supervisor 10/16/242158 MR#: [id number] Acct: [id number] Name: LUTHER CASTILLO II Rep #:[id number] : 1955 69 From: Jose David Daigle PCP: Dr. López Lilly MD Status :ADM IN Location: ICU ICU01-[address] Jose David Soliz MD on 10/17/24 at 1328 Objective Data Objective Data Vital Signs: Vital Signs Last response 3 Temperature 36.8 C 10/17/24 10:00 Temperature Source Temporal 10/17/24 10:00 Pulse Rate 78 10/17/24 10:00 Respiratory Rate 21 H 10/17/24 10:00 Respiratory Effort Normal, Non-Labored 10/17/24 09:28 Respiratory Depth Normal 10/17/24 09:28 Respiratory Pattern Normal 10/17/24 09:28 Blood Pressure 113/68 10/17/24 10:00 Blood Pressure Mean 83 10/17/24 10:00 Blood Pressure Source Monitor 10/17/24 08:00 Blood Pressure Position Sitting 10/17/24 08:00 Blood Pressure Location Right Arm 10/17/24 08:00 Pulse Ox 98 10/17/24 10:00 Oxygen Delivery Method Room Air 10/17/24 10:00 Oxygen Flow Rate (L/min) 2 10/16/24 12:00 I&O: I&O Last 24 Hours 3 10/16/24 10/17/24 10/17/24 23:59 11:59 23:59 Intake Total 2791.22 / 6297.48 2387.75 / 2747.75 360 / 2747.75 Output Total 200 / 900 850 / 850 Balance 2591.22 / 5397.48 1537.75 / 1897.75 360 / 1897.75 I&O: Total Stay 3 10/15/24 04:33 thru 10/17/24 12:00 Intake Total 08268.03 Output Total 2800 Balance 59206.03 Current Meds Ordered / Administered: Current meds ordered / Administered 3 Generic Name Dose Route Start Last Admin Trade Name Freq PRN Reason Stop Dose Admin Acetaminophen 650 mg 10/15/24 10:23 Acetaminophen 325 Mg Tablet PO Q4H PRN PRN Fever, pain 1-10/10 Acetaminophen 650 mg 10/15/24 10:23 Acetaminophen 650 Mg Suppository RC Q4H PRN PRN Fever, pain 1-10 Al Hydroxide/Mg Hydroxide 30 ml 10/15/24 10:23 Mag Hydrox/Al Hydrox/Simeth 30 Ml Udc PO Q6H PRN PRN Gastric Burning Albuterol Sulfate 2.5 mg 10/15/24 10:23 Albuterol 2.5 Mg/3 Ml Vial.Neb. INHALATION Q2H PRN PRN Dyspnea, wheezing Atorvastatin Calcium 20 mg 10/17/24 22:00 Atorvastatin Calcium 20 Mg Tablet PO QHS [facility] Calamine/Phenol 1 applic 10/15/24 11:00 10/17/24 08:13 Menthol/Lanolin/Calamine/Znox 113 Gm Tube TOPICAL Not Given 4X/DAY [facility] Protocol Enoxaparin Sodium 40 mg 10/15/24 11:00 10/17/24 09:15 Enoxaparin 40 Mg/0.4 Ml Syringe SC 40 mg DAILY KATI Administration Famotidine 20 mg 10/15/24 11:00 10/17/24 08:14 Famotidine 20 Mg Tablet PO 20 mg BID KATI Administration Guaifenesin 10 ml 10/15/24 10:23 Guaifenesin 10 Ml Udc (200mg/10ml) PO Q4H PRN PRN COUGH Piperacillin Sod/Tazobactam 50 mls @ 12.5 mls/hr 10/15/24 14:00 10/17/24 10:35 Sod 3.375 gm/ Sodium Chloride IV Infused Q8 KATI Infusion Sodium Chloride 1,000 mls @ 150 mls/hr 10/15/24 10:23 10/17/24 09:22 IV 150 mls/hr .Q6H40M KATI Administration Sodium Chloride 250 mls @ 15 mls/hr 10/15/24 10:30 10/17/24 09:33 IV 0 mls/hr .[id number] PRN Infusion Saline Flush Sodium Chloride 250 mls @ 15 mls/hr 10/15/24 10:30 IV .[id number] PRN Additional IVPB Infusion Melatonin 3 mg 10/15/24 22:00 Melatonin 3 Mg Tablet PO QHS PRN PRN INSOMNIA Midodrine 10 mg 10/15/24 10:10 10/17/24 11:56 Midodrine Hcl 5 Mg Tablet PO 10 mg TIDCM KATI Administration Nutritional Formula (Lactose Free) 120 ml 10/15/24 18:00 10/17/24 09:26 Ensure Plus High Protein 120 Ml Liquid PO 120 ml 4X/DAY KATI Administration Ondansetron HCl 4 mg 10/15/24 10:23 Ondansetron 4 Mg/2 Ml Vial IV Q8H PRN PRN NAUSEA/VOMITING Potassium Phos/Sodium Phos 1 packet 10/17/24 08:00 10/17/24 11:56 Na Biphos/Potassium Phosphate Packet PO 10/17/24 17:01 1 packet TIDCM KATI Administration Prednisone 10 mg 10/17/24 10:00 10/17/24 09:15 Prednisone 10 Mg Tablet PO 10 mg BID KATI Administration Prochlorperazine Edisylate 5 mg 10/15/24 10:23 Prochlorperazine 10 Mg/2 Ml Vial IV Q4H PRN PRN Breakthrough Nausea/Vomiting Senna/Docusate Sodium 2 tablet 10/15/24 11:00 Senna/Docusate Sodium 1 Tablet PO BID PRN PRN Constipation Sodium Chloride 10 - 40 ml 10/15/24 10:30 10/17/24 05:34 0.9% Saline Lock 10 Ml Syringe IV 10 ml UD PRN Administration SALINE FLUSH Tamsulosin HCl 0.4 mg 10/15/24 11:00 10/17/24 08:14 Tamsulosin Hcl 0.4 Mg Capsule PO 0.4 mg DAILY KATI Administration 10/17/24 1328 Cosigner Signature (if applicable): cc: ~* Signed Objective Data Objective Data Vital Signs: Vital Signs Last response 3 Temperature 36.6 C 10/16/24 15:00 Temperature Source Temporal 10/16/24 15:00 Pulse Rate 84 10/16/24 19:00 Respiratory Rate 30 H 10/16/24 19:00 Respiratory Effort Normal, Non-Labored 10/16/24 20:42 Respiratory Depth Normal 10/16/24 20:42 Respiratory Pattern Normal 10/16/24 20:42 Blood Pressure 129/65 H 10/16/24 19:00 Blood Pressure Mean 86 10/16/24 19:00 Blood Pressure Source Monitor 10/16/24 12:00 Blood Pressure Position Semi-Fowlers 10/16/24 12:00 Blood Pressure Location Left Forearm 10/16/24 12:00 Pulse Ox 100 10/16/24 19:00 Oxygen Delivery Method Room Air 10/16/24 20:42 Oxygen Flow Rate (L/min) 2 10/16/24 12:00 I&O: I&O Last 24 Hours 3 10/15/24 10/16/24 10/16/24 23:59 11:59 23:59 Intake Total 2044.30 / 5616.60 3506.26 / 6290.51 2784.25 / 6290.51 Output Total 900 / 1250 500 / 700 200 / 700 Balance 1144.30 / 4366.60 3006.26 / 5590.51 2584.25 / 5590.51 I&O: Total Stay 3 10/15/24 04:33 thru 10/16/24 20:38 Intake Total 26051.31 Output Total 1950 Balance 9953.31 Current Meds Ordered / Administered: Current meds ordered / Administered 3 Generic Name Dose Route Start Last Admin Trade Name Freq PRN Reason Stop Dose Admin Acetaminophen 650 mg 10/15/24 10:23 Acetaminophen 325 Mg Tablet PO Q4H PRN PRN Fever, pain 1-10/10 Acetaminophen 650 mg 10/15/24 10:23 Acetaminophen 650 Mg Suppository RC Q4H PRN PRN Fever, pain 1-10 Al Hydroxide/Mg Hydroxide 30 ml 10/15/24 10:23 Mag Hydrox/Al Hydrox/Simeth 30 Ml Udc PO Q6H PRN PRN Gastric Burning Albuterol Sulfate 2.5 mg 10/15/24 10:23 Albuterol 2.5 Mg/3 Ml Vial.Neb. INHALATION Q2H PRN PRN Dyspnea, wheezing Calamine/Phenol 1 applic 10/15/24 11:00 10/16/24 20:53 Menthol/Lanolin/Calamine/Znox 113 Gm Tube TOPICAL Not Given 4X/DAY KATI Protocol Enoxaparin Sodium 40 mg 10/15/24 11:00 10/16/24 10:13 Enoxaparin 40 Mg/0.4 Ml Syringe SC 40 mg DAILY KATI Administration Famotidine 20 mg 10/15/24 11:00 10/16/24 20:58 Famotidine 20 Mg Tablet PO 20 mg BID KATI Administration Guaifenesin 10 ml 10/15/24 10:23 Guaifenesin 10 Ml Udc (200mg/10ml) PO Q4H PRN PRN COUGH Hydrocortisone Sodium Succinate 50 mg 10/15/24 11:00 10/16/24 17:17 Hydrocortisone Sod Succinate 100 Mg/2 Ml Vial IV 50 mg Q6 KATI Administration Norepinephrine Bitartrate 8 mg 250 mls @ 9.375 mls/hr 10/15/24 08:10 10/16/2518:00 / Sodium Chloride CONT INF 1 mcg/min .[id number] KATI 1.9 mls/hr Titration Protocol 5 MCG/MIN Piperacillin Sod/Tazobactam 50 mls @ 12.5 mls/hr 10/15/24 14:00 10/16/24 21:12 Sod 3.375 gm/ Sodium Chloride IV 12.5 mls/hr Q8 KATI Administration Vancomycin IV-PHARMACY TO DOSE 500 mls @ 250 mls/hr 10/15/24 10:23 1 each/ Sodium Chloride IV PRN PRN Rx to Dose Protocol Sodium Chloride 1,000 mls @ 150 mls/hr 10/15/24 10:23 10/16/24 20:38 IV 150 mls/hr .Q6H40M KATI Administration Sodium Chloride 250 mls @ 15 mls/hr 10/15/24 10:30 10/15/24 22:10 IV 0 mls/hr .[id number] PRN Infusion Saline Flush Sodium Chloride 250 mls @ 15 mls/hr 10/15/24 10:30 IV .[id number] PRN Additional IVPB Infusion Vancomycin HCl 1,250 mg/ 275 mls @ 167 mls/hr 10/16/24 18:30 10/16/24 20:38 Sodium Chloride IV Infused Q12H KATI Infusion Melatonin 3 mg 10/15/24 22:00 Melatonin 3 Mg Tablet PO QHS PRN PRN INSOMNIA Midodrine 10 mg 10/15/24 10:10 10/16/24 17:16 Midodrine Hcl 5 Mg Tablet PO 10 mg TIDCM KATI Administration Nutritional Formula (Lactose Free) 120 ml 10/15/24 18:00 10/16/24 20:52 Ensure Plus High Protein 120 Ml Liquid PO Not Given 4X/DAY KATI Ondansetron HCl 4 mg 10/15/24 10:23 Ondansetron 4 Mg/2 Ml Vial IV Q8H PRN PRN NAUSEA/VOMITING Prochlorperazine Edisylate 5 mg 10/15/24 10:23 Prochlorperazine 10 Mg/2 Ml Vial IV Q4H PRN PRN Breakthrough Nausea/Vomiting Senna/Docusate Sodium 2 tablet 10/15/24 11:00 Senna/Docusate Sodium 1 Tablet PO BID PRN PRN Constipation Sodium Chloride 10 - 40 ml 10/15/24 10:30 10/16/24 20:58 0.9% Saline Lock 10 Ml Syringe IV 10 ml UD PRN Administration SALINE FLUSH Tamsulosin HCl 0.4 mg 10/15/24 11:00 10/16/24 10:13 Tamsulosin Hcl 0.4 Mg Capsule PO 0.4 mg DAILY KATI Administration Vancomycin Protocol 1 lab 10/18/24 05:00 Vancomycin Trough/Random Due MC 10/18/24 07:00 DAILY [facility] Medical Records Data Medical Nutrition Assessment Dietitian: Malnutrition Criteria Met Start: 10/16/24 14:00 Freq: Status: Active Protocol: Document 10/16/24 14:00 SB (Rec: 10/16/24 14:00 SB [id number]) Nutrition Malnutrition Evidence of Yes Malnutrition Exists Malnutrition (severe Chronic ): Evidenced By Suboptimal Energy Intake (Severe),Weight Loss (Severe) Clinical Problem Chronic Disease or Condition Related Malnutrition Etiology 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 Status Active Problem Recommendation Dietitian Adjust to liberal regular diet. Recommendations/ Will order 120ml chocolate EPHP 4x daily with medpass. Changes Will monitor weight trends. Lab / Micro Data 10/16/24 05:09 10/16/24 05:09 Labs: Laboratory Results - last 24 hr 10/16/24 05:09: WBC 7.8, RBC 3.26 L, Hgb 8.1 L, Hct 27.2 L, MCV 83.4, MCH 24.8 L, MCHC 29.8 L, RDW Std Deviation 63.1 H, RDW Coeff of Lydia 20.6 H, Plt Count 116 L, MPV 8.9, Immature Gran % (Auto) 0.500, Neut % (Auto) 86.2 H, Lymph % (Auto) 9.7 L, Fillmore % (Auto) 3.4, Eos % (Auto) 0.1, Baso % (Auto) 0.1, Absolute Neuts (auto) 6.8, Absolute Lymphs (auto) 0.76 L, Nucleated RBC % 0, Anisocytosis 1+, Sodium 139, Potassium 3.4, Chloride 113 H, Carbon Dioxide 18.3 L, Anion Gap 8, BUN 17, Creatinine 0.82,Estim Creat Clear Calc 74.56, Est GFR (MDRD) Non-Af 94,BUN/Creatinine Ratio 20.6 H, Glucose 139 H, Calcium 7.2 L, Phosphorus 2.7, Magnesium 1.8, Total Bilirubin 0.64, Direct Bilirubin 0.34 H, AST 20,ALT 16, Alkaline Phosphatase 107, Total Protein 5.4 L, Albumin 2.9 L, Globulin 2.5, Cortisol AM Sample 25.70 H 10/16/24 06:08: Cortisol AM Sample 75.40 H 10/16/24 17:28: Vancomycin Trough 10.3 Micro: Microbiology 10/15/24 04:47 Blood Culture (Wb) - Anticubital Left Bacteria Detection (PCR) - Preliminary Strep anginosus 10/15/24 05:10 Blood Culture (Wb) - Right Hand Blood Culture - Preliminary Assessment and Plan . Assessment and plan: HPI Patient seen and examined Chart and data reviewed He feels well On and off low doses NE for BP BCX - (?) Strep Lab noted EXAM GEN NAD VS as above HEENT O2 N/C NECK obese COR RRR CHEST CTA ABD soft EXT minimal edema SKIN w/d JAMES NF ASSESSMENT 1. Presumed sepsis syndrome 2. (?) recurrent bacteremia 3. Advanced prostate CA - immunosuppressed -NE as needed -ABX -f/u CX -ID opinion noted -VTE ppx -IV hydrocortisone Critical Care Time: 50 minutes The entirety of this encounter was done via Telemedicine 10/16/242 Cosigner Signature (if applicable): CC: ~ Signed [facility]07-13-2025 Progress note Author Lety Augustine [facility] Note Date/Time October 17, 2024 11:0 6am [facility] Medical Records Department [address] [place] [address] Progress Note - Hospitalist 10/17/24 0653 MR#: [id number] Acct: [id number] Name: LUTHER CASTILLO II Rep #:[id number] : 1955 69 From: Lety Augustine MD PCP: Dr. López Lilly MD Status :ADM IN Location: ICU ICU01-1 Reason for Visit Reason for Visit: Diagnoses Sepsis, unspecified organism (10/15/24) Malignant neoplasm of prostate (10/15/24) Hypotension, unspecified (10/15/24) Severe sepsis with septic shock (10/15/24) Subjective Subjective Patient with no acute events overnight per self and per nursing report. Discussed that only 1 of 2 cultures was atypical as far as blood cultures are concerned but urine culture was still no growth and no obvious source. Discussed plan of care which included de-escalation off of stress dose steroids and transition back to oral home steroids to which she is amenable. Discussed also MRSA screen negative with plan to de-escalate off of vancomycin and continue only on IV Zosyn pending infectious disease reevaluation 10/18/2024. Patient denies fevers, chills, nausea, emesis, abdominal pain, chest pain or dyspnea. Objective Data Objective Data Vital Signs: Vital Signs Temp Pulse Resp BP Pulse Ox O2 Del Method O2 Flow Rate 97.7 F L 56 L 16 139/81 H 95 Room Air 2 10/17/24 04:00 10/17/24 06:00 10/17/24 06:00 10/17/24 06:00 10/17/24 06:00 10/17/24 06:00 10/16/24 12:00 Oxygen Flow Rate (L/min) 2 Oxygen Delivery Method Room Air Weight: 161 lb 13.109 oz Body Mass Index (BMI) 25.9 Intake & Output: Intake and Output for Last 24 Hours 10/15/24 10/16/24 10/17/24 23:59 23:59 23:59 Intake Total 5612.80 / 5616.60 6297.48 / 6297.48 955 / 955 Output Total 1250 / 1250 700 / 900 850 / 850 Balance 4362.80 / 4366.60 5597.48 / 5397.48 105 / 105 Medical Nutrition Assessment Dietitian: Malnutrition Criteria Met Start: 10/16/24 14:00 Freq: Status: Active Protocol: Document 10/16/24 14:00 SB (Rec: 10/16/24 14:00 SB [id number]) Nutrition Malnutrition Evidence of Yes Malnutrition Exists Malnutrition (severe Chronic ): Evidenced By Suboptimal Energy Intake (Severe),Weight Loss (Severe) Clinical Problem Chronic Disease or Condition Related Malnutrition Etiology 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 Status Active Problem Recommendation Dietitian Adjust to liberal regular diet. Recommendations/ Will order 120ml chocolate EPHP 4x daily with medpass. Changes Will monitor weight trends. Lab / Micro Data 10/17/24 04:35 10/17/24 04:35 Labs: Laboratory Results - last 24 hr 10/16/24 05:09: Anisocytosis 1+ 10/16/24 06:08: Cortisol AM Sample 75.40 H 10/16/24 17:28: Vancomycin Trough 10.3 10/17/24 04:35: WBC 4.9, RBC 2.92 L, Hgb 7.4 L, Hct 24.3 L, MCV 83.2, MCH 25.3 L, MCHC 30.5 L, RDW Std Deviation 62.7 H, RDW Coeff of Lydia 20.5 H, Plt Count 103 L, MPV 9.0, Immature Gran % (Auto) 0.600, Neut % (Auto) 78.0 H, Lymph % (Auto) 17.7 L, Fillmore % (Auto) 3.5, Eos % (Auto) 0.2, Baso % (Auto) 0.0, Absolute Neuts (auto) 3.8, Absolute Lymphs (auto) 0.86, Nucleated RBC % 0, Differential CommentSCANNED, Anisocytosis 3+, Microcytosis 1+, Ovalocytes 2+, Christiana Cells 1+, Sodium 141, Potassium 3.2 L, Chloride 115 H, Carbon Dioxide 18.4 L, Anion Gap 8, BUN 16, Creatinine 0.63 L, Estim Creat Clear Calc 76.43, Est GFR (MDRD) Non-Af 102, BUN/Creatinine Ratio 24.5 H, Glucose 155 H, Calcium 7.0 L, Phosphorus 1.9 L, Magnesium 1.8, Total Bilirubin 0.37, Direct Bilirubin 0.18, AST 19, ALT 15, Alkaline Phosphatase 106, Total Protein 5.3 L, Albumin 2.9 L, Globulin 2.4 Micro: Microbiology 10/15/24 04:47 Blood Culture (Wb) - Anticubital Left Bacteria Detection (PCR) - Preliminary Strep anginosus 10/15/24 05:10 Blood Culture (Wb) - Right Hand Blood Culture - Preliminary 10/15/24 09:45 Mucosa - Nose Respiratory Panel (PCR) - Final 10/15/24 11:10 Nasal Secretion MRSA (PCR) - Final 10/15/24 09:45 Urine Catheter - Catheter Legionella Antigen - Final 10/15/24 09:45 Urine Catheter - Catheter Streptococcus pneumoniae Antigen (M- Final Physical Exam Narrative Physical Examination: General: Awake, alert, oriented x 3 and cooperative, seated upright in the bedside chair, just finished breakfast, no acute complaints at this time. Skin: Normal color, normal turgor, no icterus, no cyanosis except for occasionalstage ecchymoses, abrasion as well as scalp wound which is chronic status post previous squamous cell carcinoma skin resection with dressing changed day prior. HEENT: AT aside from see skin/NC, EOMI, PERRLA, MMM. Lungs: Mildly diminished, greater bases, appropriate effort, no rales, ronchi orwheezing. Heart: Regular rate and rhythm; no gallop, rub audible. Abdomen: Soft, NTTP, ND, mildly hyperactive BS. Extremities: No cyanosis, no clubbing, no distal edema noted. Neurological: Patient awake, alert, oriented as noted, cognitive function intact; pupils equally reactive to light and accommodation, cranial nerves grossly normal, moving all 4 extremities, no focal deficits, strength improving,mildly to moderately global decreased Psychiatric: Affect appears normal, no acute evidence of depressive or anxiety feelings. 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 with ongoing localized skin care, CKD stage II per GFR trending, Chronic anemia, BPH with obstructive pathology, Stage IV Prostate CA w/ metastatic disease to the bone on immunotherapy/hormonal therapy, recent discharge 09/22/2024 following admission and evaluation for acute acalculous cholecystitis with associated severe sepsis with acute kidney injury and bacteremia complicated by underlying stage IV prostate cancer with metastatic disease to the bone on immunotherapy and hormonal therapy with blood cultures noted to grow Streptococcus intermedius andmethylol bacterium treated with IV Zosyn eventually transition to discharge to cefdinir 300 mg twice daily with stress dose steroids with planned follow-up at the [facility] with general surgery given [facility] surgery felt patient was too complicated with Case reviewed with his oncologist at discharge who now Aida presents to the [facility] ED on 10/15/24 with history of onset fatigue, malaise and fevers prompting ED return. #1. Shock, Undifferentiated, concern for potentially Septic but unclear source,recent presentation Acute acalculous cholecystitis but current presentation without abdominal pain/normal GB US: Admitted to the ICU, maintained on broad-spectrum antibiotic therapy with IV Zosyn and IV vancomycin, MRSA screen negative, upon admission started on stress dose steroids which are continued in addition to norepinephrine weaned off 10/17/2019 5 AM, PICC line placement to be requested given norepinephrine usage, 1 of 2 blood cultures with strep vaginosisdetected as a preliminary, urine culture still pending, urine antigens negative,respiratory viral panel negative. As noted prior surgery reviewed ED initiated imaging including gallbladder ultrasound and felt this was not the source, continues to be no abdominal pain with palpation. Soft Sugar Supervisor and infectious disease following. Cosyntropin testing ordered per municipal maintenance worker in case of adrenal insufficiency as etiology with initial testing 25.70 and repeat 75.40 however these were performed with stress dose steroids and transition back to low-dose twice daily prednisone therapy. 10/16/2024 remains off of norepinephrine. 10/17/24 will d/c stress dose steroids. 10/17/24 will d/c vancomycin. Maintained on midodrine. Clinically improved, 10/17/24 transition toPCU status. #2. Hypokalemia, hypophosphatemia: 10/17/2024 potassium 3.2, phosphorus 1.9, administered oral potassium 40 mill equivalent x 1 and placed on Neutra-Phos packets, will repeat level in AM. #3. Stage IV prostate cancer with metastatic disease to the bone: Following with oncology on immunotherapy/immunotherapy, temporally holding, encourage follow-up outpatient as previously arranged upon discharge. As noted 10/17/2024 will de- escalate off stress dose steroids and resume low-dose twice daily steroids. #4. Chronic normocytic anemia: Admission hemoglobin 9.8, MCV 82.4, baseline hemoglobin primarily 8-9. /03/31 hgb 8.1, MCV 83.4->10/17/24 Hgb 7.4, MCV 83.2. If symptomatic or hemoglobin repeat less than 7 will initiate PRBC administration. #5. Chronic Kidney Disease Stage II per GFR trending: Admission BUN/Cr 20/0.99,GFR 81, baseline renal function primarily 0.7-0.9 but has vacillated. 10/17/24 BUN/Cr 16/0.63, GFR 102. #6. BPH with obstructive pathology: Will continue patient on Flomax regimen, monitor for retention. #7. Hyperlipidemia: Upon presentation initially given mild hyperbilirubinemia held statin therapy, 10/17/2024 T. bili, T. bili, LFTs normalized, will resume. #8. Hx Squamous cell carcinoma of the scalp in situ status post resection: Lastdressing change 10/14/2024, noninfected appearing, will continue dressing changesper home regimen. #9. Former tobacco use: Encourage continued tobacco cessation. #10. DVT prophylaxis: Lovenox. #11. CODE status: Patient PARVEZ is his and living will is currently in place. DNR-CCA, no intubation status. Charges/Coding Visit Charges Inpatient E&M: 03074 Subs Hosp L3 10/17/24 1106 <Electronically signed by Lety Augustine MD> Cosigner Signature (if applicable): CC: ~ Signed [facility] Work Phone: [phone]) 181-518707-13-2025 Progress note [facility] Medical Records Department [address] [place] [address] Progress Note - Hospitalist 10/17/24 0653 MR#: [id number] Acct: [id number] Name: LUTHER CASTILLO II Rep #:[id number] : 1955 69 From: Lety Augustine MD PCP: Dr. López Lilly MD Status :ADM IN Location: ICU ICU01-1 Reason for Visit Reason for Visit: Diagnoses Sepsis, unspecified organism (10/15/24) Malignant neoplasm of prostate (10/15/24) Hypotension, unspecified (10/15/24) Severe sepsis with septic shock (10/15/24) Subjective Subjective Patient with no acute events overnight per self and per nursing report. Discussed that only 1 of 2 cultures was atypical as far as blood cultures are concerned but urine culture was still no growth and no obvious source. Discussed plan of care which included de-escalation off of stress dose steroids and transition back to oral home steroids to which she is amenable. Discussed also MRSA screen negative with plan to de-escalate off of vancomycin and continue only on IV Zosyn pending infectious disease reevaluation 10/18/2024. Patient denies fevers, chills, nausea, emesis, abdominal pain, chest pain or dyspnea. Objective Data Objective Data Vital Signs: Vital Signs Temp Pulse Resp BP Pulse Ox O2 Del Method O2 Flow Rate 97.7 F L 56 L 16 139/81 H 95 Room Air 2 10/17/24 04:00 10/17/24 06:00 10/17/24 06:00 10/17/24 06:00 10/17/24 06:00 10/17/24 06:00 10/16/24 12:00 Oxygen Flow Rate (L/min) 2 Oxygen Delivery Method Room Air Weight: 161 lb 13.109 oz Body Mass Index (BMI) 25.9 Intake & Output: Intake and Output for Last 24 Hours 10/15/24 10/16/24 10/17/24 23:59 23:59 23:59 Intake Total 5612.80 / 5616.60 6297.48 / 6297.48 955 / 955 Output Total 1250 / 1250 700 / 900 850 / 850 Balance 4362.80 / 4366.60 5597.48 / 5397.48 105 / 105 Medical Nutrition Assessment Dietitian: Malnutrition Criteria Met Start: 10/16/24 14:00 Freq: Status: Active Protocol: Document 10/16/24 14:00 SB (Rec: 10/16/24 14:00 SB [id number]) Nutrition Malnutrition Evidence of Yes Malnutrition Exists Malnutrition (severe Chronic ): Evidenced By Suboptimal Energy Intake (Severe),Weight Loss (Severe) Clinical Problem Chronic Disease or Condition Related Malnutrition Etiology 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 Status Active Problem Recommendation Dietitian Adjust to liberal regular diet. Recommendations/ Will order 120ml chocolate EPHP 4x daily with medpass. Changes Will monitor weight trends. Lab / Micro Data 10/17/24 04:35 10/17/24 04:35 Labs: Laboratory Results - last 24 hr 10/16/24 05:09: Anisocytosis 1+ 10/16/24 06:08: Cortisol AM Sample 75.40 H 10/16/24 17:28: Vancomycin Trough 10.3 10/17/24 04:35: WBC 4.9, RBC 2.92 L, Hgb 7.4 L, Hct 24.3 L, MCV 83.2, MCH 25.3 L, MCHC 30.5 L, RDW Std Deviation 62.7 H, RDW Coeff of Lydia 20.5 H, Plt Count 103 L, MPV 9.0, Immature Gran % (Auto) 0.600, Neut % (Auto) 78.0 H, Lymph % (Auto) 17.7 L, Fillmore % (Auto) 3.5, Eos % (Auto) 0.2, Baso % (Auto) 0.0, Absolute Neuts (auto) 3.8, Absolute Lymphs (auto) 0.86, Nucleated RBC % 0, Differential CommentSCANNED, Anisocytosis 3+, Microcytosis 1+, Ovalocytes 2+, Alexx Cells 1+, Sodium 141, Potassium 3.2 L,Chloride 115 H, Carbon Dioxide 18.4 L, Anion Gap 8, BUN 16, Creatinine 0.63 L, Estim Creat Clear Calc 76.43, Est GFR (MDRD) Non-Af 102, BUN/Creatinine Ratio 24.5 H, Glucose 155 H, Calcium 7.0 L, Phosphorus 1.9 L, Magnesium 1.8, Total Bilirubin 0.37, Direct Bilirubin 0.18, AST 19, ALT 15, Alkaline Phosphatase 106, Total Protein 5.3 L, Albumin 2.9 L, Globulin 2.4 Micro: Microbiology 10/15/24 04:47 Blood Culture (Wb) - Anticubital Left Bacteria Detection (PCR) - Preliminary Strep anginosus 10/15/24 05:10 Blood Culture (Wb) - Right Hand Blood Culture - Preliminary 10/15/24 09:45 Mucosa - Nose Respiratory Panel (PCR) - Final 10/15/24 11:10 Nasal Secretion MRSA (PCR) - Final 10/15/24 09:45 Urine Catheter - Catheter Legionella Antigen - Final 10/15/24 09:45 Urine Catheter - Catheter Streptococcus pneumoniae Antigen (M- Final Physical Exam Narrative Physical Examination: General: Awake, alert, oriented x 3 and cooperative, seated upright in the bedside chair, just finished breakfast, no acute complaints at this time. Skin: Normal color, normal turgor, no icterus, no cyanosis except for occasionalstage ecchymoses, abrasion as well as scalp wound which is chronic status post previous squamous cell carcinoma skin resection with dressing changed day prior. HEENT: AT aside from see skin/NC, EOMI, PERRLA, MMM. Lungs: Mildly diminished, greater bases, appropriate effort, no rales, ronchi orwheezing. Heart: Regular rate and rhythm; no gallop, rub audible. Abdomen: Soft, NTTP, ND, mildly hyperactive BS. Extremities: No cyanosis, no clubbing, no distal edema noted. Neurological: Patient awake, alert, oriented as noted, cognitive function intact; pupils equally reactive to light and accommodation, cranial nerves grossly normal, moving all 4 extremities, no focaldeficits, strength improving,mildly to moderately global decreased Psychiatric: Affect appears normal, no acute evidence of depressive or anxiety feelings. 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 with ongoing localized skin care, CKD stage II per GFR trending, Chronicanemia, BPH with obstructive pathology, Stage IV Prostate CA w/ metastatic disease to the bone on im munotherapy/hormonal therapy, recent discharge 09/22/2024 following admission and evaluation for acute acalculous cholecystitis with associated severe sepsis with acute kidney injury and bacteremia complicated by underlying stage IV prostate cancer with metastatic disease to the bone on immunotherapy and hormonal therapy with blood cultures noted to grow Streptococcus intermedius andmethylol bacter ium treated with IV Zosyn eventually transition to discharge to cefdinir 300 mg twice daily with stress dose steroids with planned follow-up at the [facility] with general surgery given [facility] surgery felt patient was too complicated with Case reviewed with his oncologist at discharge who now Aida presents to the [facility] ED on 10/15/24 with history of on set fatigue, malaise and fevers prompting ED return. #1. Shock, Undifferentiated, concern for potentially Septic but unclear source,recent presentation Acute acalculous cholecystitis but current presentation without abdominal pain/normal GB US: Admitted to the ICU, maintained on broad-spectrum antibiotic therapy with IV Zosyn and IV vancomycin, MRSA screen negative, upon admission started on stress dose steroids which are continued in addition to norepinephrine weaned off 10/17/2019 5 AM, PICC line placement to be requested given norepinephrine usage, 1 of 2 blood cultures with strep vaginosisdetected as a preliminary, urine culture still pending, urine antigens negative,respiratory viral panel negative. As noted prior surgery reviewed ED initiated imaging including gallbladder ultrasound and felt this was not the source, continues to be no abdominal pain with palpation. Soft Sugar Supervisor and infectious disease following. Cosyntropin testing ordered per municipal maintenance worker in case of adrenal insufficiency as etiology with initial testing 25.70 and repeat 75.40 however these were performed with stress dose steroids and transition back to low-dose twice daily prednisone therapy. 10/16/2024 remains off of norepinephrine. 10/17/24 will d/c stress dose steroids. 10/17/24 will d/c vancomycin. Maintained on midodrine. Clinically improved, 10/17/24 transition toPCU status. #2. Hypokalemia, hypophosphatemia: 10/17/2024 potassium 3.2, phosphorus 1.9, administered oral potassium 40 mill equivalent x 1 and placed on Neutra-Phos packets, will repeat level in AM. #3. Stage IV prostate cancer with metastatic disease to the bone: Following with oncology on immunotherapy/immunotherapy, temporally holding, encourage follow-up outpatient as previously arranged upon discharge. As noted 10/17/2024 will de- escalate off stress dose steroids and resume low-dose twice daily steroids. #4. Chronic normocytic anemia: Admission hemoglobin 9.8, MCV 82.4, baseline hemoglobin primarily 8-9. /03/31 hgb 8.1, MCV 83.4->10/17/24 Hgb 7.4, MCV 83.2. If symptomatic or hemoglobin repeat lessthan 7 will initiate PRBC administration. #5. Chronic Kidney Disease Stage II per GFR trending: Admission BUN/Cr 20/0.99,GFR 81, baseline renal function primarily 0.7-0.9 but has vacillated. 10/17/24 BUN/Cr 16/0.63, GFR 102. #6. BPH with obstructive pathology: Will continue patient on Flomax regimen, monitor for retention. #7. Hyperlipidemia: Upon presentation initially given mild hyperbilirubinemia held statin therapy, 10/17/2024 T. bili, T. bili, LFTs normalized, will resume. #8. Hx Squamous cell carcinoma of the scalp in situ status post resection: Lastdressing change 10/14/2024, noninfected appearing, will continue dressing changesper home regimen. #9. Former tobacco use: Encourage continued tobacco cessation. #10. DVT prophylaxis: Lovenox. #11. CODE status: Patient PARVEZ is his and living will is currently in place. DNR-CCA, no intubation status. Charges/Coding Visit Charges Inpatient E&M: 01662 Subs Hosp L3 10/17/24 1106 Cosigner Signature (if applicable): CC: ~ Signed [facility]07-12-2025 Progress note Author Lety Augustine [facility] Note Date/Time October 16, 2024 9:19 am [facility] Medical Records Department [address] [place] [address] Progress Note - Hospitalist 10/16/24 0711 MR#: [id number] Acct: [id number] Name: LUTHER CASTILLO II Rep #:[id number] : 1955 69 From: Lety Augustine MD PCP: Dr. López Lilly MD Status :ADM IN Location: ICU ICU01-1 Reason for Visit Reason for Visit: Diagnoses Sepsis, unspecified organism (10/15/24) Malignant neoplasm of prostate (10/15/24) Hypotension, unspecified (10/15/24) Severe sepsis with septic shock (10/15/24) Subjective Subjective Patient overnight with no acute events per nursing and self report. He notes feeling improved and more back to his previous normal baseline. He was afebrileovernight. Blood pressure is since improved and he is being weaned off early this a.m. from his norepinephrine. Discussed still awaiting cultures and unclear specific etiology for his hypotensive presentation. Patient denies fevers, chills, nausea, emesis, abdominal pain, chest pain or dyspnea. Objective Data Objective Data Vital Signs: Vital Signs Temp Pulse Resp BP Pulse Ox O2 Del Method 98.0 F 79 18 125/64 H 97 Room Air 10/16/24 00:00 10/16/24 06:00 10/16/24 06:00 10/16/24 06:45 10/16/24 06:00 10/16/24 06:00 Oxygen Delivery Method Room Air Weight: 153 lb 0.013 oz Body Mass Index (BMI) 24.5 Intake & Output: Intake and Output for Last 24 Hours 10/14/24 10/15/24 10/16/24 23:59 23:59 23:59 Intake Total 5612.80 / 5616.60 2071.01 / 2071.01 Output Total 1250 / 1250 500 / 500 Balance 4362.80 / 4366.60 1571.01 / 1571.01 Lab / Micro Data 10/16/24 05:09 10/16/24 05:09 Labs: Laboratory Results - last 24 hr 10/15/24 04:47: Phosphorus 2.4 L, Magnesium 1.7 10/16/24 05:09: WBC 7.8, RBC 3.26 L, Hgb 8.1 L, Hct 27.2 L, MCV 83.4, MCH 24.8 L, MCHC 29.8 L, RDW Std Deviation 63.1 H, RDW Coeff of Lydia 20.6 H, Plt Count 116 L, MPV 8.9, Immature Gran % (Auto) 0.500, Neut % (Auto) 86.2 H, Lymph % (Auto) 9.7 L, Fillmore % (Auto) 3.4, Eos % (Auto) 0.1, Baso % (Auto) 0.1, Absolute Neuts (auto) 6.8, Absolute Lymphs (auto) 0.76 L, Nucleated RBC % 0, Anisocytosis 1+, Sodium 139, Potassium 3.4, Chloride 113 H, Carbon Dioxide 18.3 L, Anion Gap 8, BUN 17, Creatinine 0.82, Estim Creat Clear Calc 74.56, Est GFR (MDRD) Non-Af 94,BUN/Creatinine Ratio 20.6 H, Glucose 139 H, Calcium 7.2 L, Phosphorus 2.7, Magnesium 1.8, Total Bilirubin 0.64, Direct Bilirubin 0.34 H, AST 20, ALT 16, Alkaline Phosphatase 107, Total Protein 5.4 L, Albumin 2.9 L, Globulin 2.5, Cortisol AM Sample 25.70 H Micro: Microbiology 10/15/24 04:47 Blood Culture (Wb) - Anticubital Left Bacteria Detection (PCR) - Preliminary Strep anginosus 10/15/24 05:10 Blood Culture (Wb) - Right Hand Blood Culture - Preliminary 10/15/24 09:45 Mucosa - Nose Respiratory Panel (PCR) - Final 10/15/24 11:10 Nasal Secretion MRSA (PCR) - Final 10/15/24 09:45 Urine Catheter - Catheter Legionella Antigen - Final 10/15/24 09:45 Urine Catheter - Catheter Streptococcus pneumoniae Antigen (M- Final Radiography Diagnostic Testing: Radiology Impression Abdomen Ultrasound 10/15/24 06:36 IMPRESSION: No definite acute abnormalities. Reading Location: [place] [address] Physical Exam Narrative Physical Examination: General: Awake, alert, oriented x 3 and cooperative, laying in the bed, improvedappearance, no acute distress. Skin: Normal color, normal turgor, no icterus, no cyanosis except for occasionalstage ecchymoses, abrasion as well as scalp wound which is chronic status post previous squamous cell carcinoma skin resection. HEENT: AT aside from see skin/NC, EOMI, PERRLA, MMM. Lungs: Mildly diminished, greater bases, appropriate effort, no rales, ronchi orwheezing. Heart: Regular rate and rhythm; no gallop, rub audible. Abdomen: Soft, NTTP, ND, mildly hyperactive BS. Extremities: No cyanosis, no clubbing, no distal edema noted. Neurological: Patient awake, alert, oriented as noted, cognitive function intact; pupils equally reactive to light and accommodation, cranial nerves grossly normal, moving all 4 extremities, no focal deficits, strength improved, mildly to moderately globally decreased Psychiatric: Affect appears rested, normal, no acute evidence of depressive or anxiety feelings. 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 with ongoing localized skin care, CKD stage II per GFR trending, Chronic anemia, BPH with obstructive pathology, Stage IV Prostate CA w/ metastatic disease to the bone on immunotherapy/hormonal therapy, recent discharge 09/22/2024 following admission and evaluation for acute acalculous cholecystitis with associated severe sepsis with acute kidney injury and bacteremia complicated by underlying stage IV prostate cancer with metastatic disease to the bone on immunotherapy and hormonal therapy with blood cultures noted to grow Streptococcus intermedius andmethylol bacterium treated with IV Zosyn eventually transition to discharge to cefdinir 300 mg twice daily with stress dose steroids with planned follow-up at the [facility] with general surgery given [facility] surgery felt patient was too complicated with Case reviewed with his oncologist at discharge who now Aida presents to the [facility] ED on 10/15/24 with history of onset fatigue, malaise and fevers prompting ED return. #1. Shock, Undifferentiated, concern for potentially Septic but unclear source,recent presentation Acute acalculous cholecystitis but current presentation without abdominal pain/normal GB US: Admitted to the ICU, maintained on broad-spectrum antibiotic therapy with IV Zosyn and IV vancomycin, MRSA screen negative, upon admission started on stress dose steroids which are continued in addition to norepinephrine weaned off 10/17/2019 5 AM, PICC line placement to be requested given norepinephrine usage, 1 of 2 blood cultures with strep vaginosisdetected as a preliminary, urine culture still pending, urine antigens negative,respiratory viral panel negative. As noted prior surgery reviewed ED initiated imaging including gallbladder ultrasound and felt this was not the source, continues to be no abdominal pain with palpation. Soft Sugar Supervisor and infectious disease following. Cosyntropin testing ordered per municipal maintenance worker in case of adrenal insufficiency as etiology with initial testing 25.70 and repeat 75.40 however these were performed with stress dose steroids. 10/16/2024 remains off of norepinephrine through the day and is clinically stable may possibly de-escalate to PCU status. #2. Stage IV prostate cancer with metastatic disease to the bone: Following with oncology on immunotherapy/immunotherapy, temporally holding, magnesium and phosphorus levels requested, complicates presentation. #3. Chronic normocytic anemia: Admission hemoglobin 9.8, MCV 82.4, baseline hemoglobin primarily 8-9. 10/16/2024 hemoglobin 8.1, MCV 83.4. #4. Chronic Kidney Disease Stage II per GFR trending: Admission BUN/Cr 20/0.99,GFR 81, baseline renal function primarily 0.7-0.9 but has vacillated. 5BUN/creatinine 17/0.82, GFR 94. #5. BPH with obstructive pathology: Will continue patient on Flomax regimen, monitor for retention. #6. Hyperlipidemia: Given mild hyperbilirubinemia will temporarily hold statin therapy, resume once appropriate. #7. Hx Squamous cell carcinoma of the scalp in situ status post resection: Lastdressing change 10/14/2024, noninfected appearing, will continue dressing changesper home regimen. #8. Former tobacco use: Encourage continued tobacco cessation. #9. DVT prophylaxis: Lovenox. #10. CODE status: Patient PARVEZ is his and living will is currently in place. DNR-CCA, no intubation status. Charges/Coding Visit Charges Inpatient E&M: 51731 Subs Hosp L3 07918 <Electronically signed by Lety Augustine MD> Cosigner Signature (if applicable): CC: ~ Signed [facility] Work Phone: 1(147) 261-456107-12-2025 Progress note [facility] Medical Records Department [address] [place] [address] Progress Note - Hospitalist 10/16/24 0711 MR#: [id number] Acct: [id number] Name: LUTHER CASTILLO II Rep #:[id number] : 1955 69 From: Lety Augustine MD PCP: Dr. López Lilly MD Status :ADM IN Location: ICU ICU01-1 Reason for Visit Reason for Visit: Diagnoses Sepsis, unspecified organism (10/15/24) Malignant neoplasm of prostate (10/15/24) Hypotension, unspecified (10/15/24) Severe sepsis with septic shock (10/15/24) Subjective Subjective Patient overnight with no acute events per nursing and self report. He notes feeling improved and more back to his previous normal baseline. He was afebrileovernight. Blood pressure is since improvedand he is being weaned off early this a.m. from his norepinephrine. Discussed still awaiting cultures and unclear specific etiology for his hypotensive presentation. Patient denies fevers, chills, nausea, emesis, abdominal pain, chest pain or dyspnea. Objective Data Objective Data Vital Signs: Vital Signs Temp Pulse Resp BP Pulse Ox O2 Del Method 98.0 F 79 18 125/64 H 97 Room Air 10/16/24 00:00 10/16/24 06:00 10/16/24 06:00 10/16/24 06:45 10/16/24 06:00 10/16/24 06:00 Oxygen Delivery Method Room Air Weight: 153 lb 0.013 oz Body Mass Index (BMI) 24.5 Intake & Output: Intake and Output for Last 24 Hours 10/14/24 10/15/24 10/16/24 23:59 23:59 23:59 Intake Total 5612.80 / 5616.60 2071.01 / 2071.01 Output Total 1250 / 1250 500 / 500 Balance 4362.80 / 4366.60 1571.01 / 1571.01 Lab / Micro Data 10/16/24 05:09 10/16/24 05:09 Labs: Laboratory Results - last 24 hr 10/15/24 04:47: Phosphorus 2.4 L, Magnesium 1.7 10/16/24 05:09: WBC 7.8, RBC 3.26 L, Hgb 8.1 L, Hct 27.2 L, MCV 83.4, MCH 24.8 L, MCHC 29.8 L, RDW Std Deviation 63.1 H, RDW Coeff of Lydia 20.6 H, Plt Count 116 L, MPV 8.9, Immature Gran % (Auto) 0.500, Neut % (Auto) 86.2 H, Lymph % (Auto) 9.7 L, Fillmore % (Auto) 3.4, Eos % (Auto) 0.1, Baso % (Auto) 0.1, Absolute Neuts (auto) 6.8, Absolute Lymphs (auto) 0.76 L, Nucleated RBC % 0, Anisocytosis 1+, Sodium 139, Potassium 3.4, Chloride 113 H, Carbon Dioxide 18.3 L, Anion Gap 8, BUN 17, Creatinine 0.82,Estim Creat Clear Calc 74.56, Est GFR (MDRD) Non-Af 94,BUN/Creatinine Ratio 20.6 H, Glucose 139 H, Calcium 7.2 L, Phosphorus 2.7, Magnesium 1.8, Total Bilirubin 0.64, Direct Bilirubin 0.34 H, AST 20,ALT 16, Alkaline Phosphatase 107, Total Protein 5.4 L, Albumin 2.9 L, Globulin 2.5, Cortisol AM Sample 25.70 H Micro: Microbiology 10/15/24 04:47 Blood Culture (Wb) - Anticubital Left Bacteria Detection (PCR) - Preliminary Strep anginosus 10/15/24 05:10 Blood Culture (Wb) - Right Hand Blood Culture - Preliminary 10/15/24 09:45 Mucosa - Nose Respiratory Panel (PCR) - Final 10/15/24 11:10 Nasal Secretion MRSA (PCR) - Final 10/15/24 09:45 Urine Catheter - Catheter Legionella Antigen - Final 10/15/24 09:45 Urine Catheter - Catheter Streptococcus pneumoniae Antigen (M- Final Radiography Diagnostic Testing: Radiology Impression Abdomen Ultrasound 10/15/24 06:36 IMPRESSION: No definite acute abnormalities. Reading Location: [place] [address] Physical Exam Narrative Physical Examination: General: Awake, alert, oriented x 3 and cooperative, laying in the bed, improvedappearance, no acute distress. Skin: Normal color, normal turgor, no icterus, no cyanosis except for occasionalstage ecchymoses, abrasion as well as scalp wound which is chronic status post previous squamous cell carcinoma skin resection. HEENT: AT aside from see skin/NC, EOMI, PERRLA, MMM. Lungs: Mildly diminished, greater bases, appropriate effort, no rales, ronchi orwheezing. Heart: Regular rate and rhythm; no gallop, rub audible. Abdomen: Soft, NTTP, ND, mildly hyperactive BS. Extremities: No cyanosis, no clubbing, no distal edema noted. Neurological: Patient awake, alert, oriented as noted, cognitive function intact; pupils equally reactive to light and accommodation, cranial nerves grossly normal, moving all 4 extremities, no focaldeficits, strength improved, mildly to moderately globally decreased Psychiatric: Affect appears rested, normal, no acute evidence of depressive or anxiety feelings. 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 with ongoing localized skin care, CKD stage II per GFR trending, Chronicanemia, BPH with obstructive pathology, Stage IV Prostate CA w/ metastatic disease to the bone on im munotherapy/hormonal therapy, recent discharge 09/22/2024 following admission and evaluation for acute acalculous cholecystitis with associated severe sepsis with acute kidney injury and bacteremia complicated by underlying stage IV prostate cancer with metastatic disease to the bone on immunotherapy and hormonal therapy with blood cultures noted to grow Streptococcus intermedius andmethylol bacter ium treated with IV Zosyn eventually transition to discharge to cefdinir 300 mg twice daily with stress dose steroids with planned follow-up at the [facility] with general surgery given [facility] surgery felt patient was too complicated with Case reviewed with his oncologist at discharge who now Aida presents to the [facility] ED on 10/15/24 with history of on set fatigue, malaise and fevers prompting ED return. #1. Shock, Undifferentiated, concern for potentially Septic but unclear source,recent presentation Acute acalculous cholecystitis but current presentation without abdominal pain/normal GB US: Admitted to the ICU, maintained on broad-spectrum antibiotic therapy with IV Zosyn and IV vancomycin, MRSA screen negative, upon admission started on stress dose steroids which are continued in addition to norepinephrine weaned off 10/17/2019 5 AM, PICC line placement to be requested given norepinephrine usage, 1 of 2 blood cultures with strep vaginosisdetected as a preliminary, urine culture still pending, urine antigens negative,respiratory viral panel negative. As noted prior surgery reviewed ED initiated imaging including gallbladder ultrasound and felt this was not the source, continues to be no abdominal pain with palpation. Soft Sugar Supervisor and infectious disease following. Cosyntropin testing ordered per municipal maintenance worker in case of adrenal insufficiency as etiology with initial testing 25.70 and repeat 75.40 however these were performed with stress dose steroids. 10/16/2024 remains off of norepinephrine through the day and is clinically stable may possibly de- escalate to PCU status. #2. Stage IV prostate cancer with metastatic disease to the bone: Following with oncology on immunotherapy/immunotherapy, temporally holding, magnesium and phosphorus levels requested, complicates presentation. #3. Chronic normocytic anemia: Admission hemoglobin 9.8, MCV 82.4, baseline hemoglobin primarily 8-9. 10/16/2024 hemoglobin 8.1, MCV 83.4. #4. Chronic Kidney Disease Stage II per GFR trending: Admission BUN/Cr 20/0.99,GFR 81, baseline renal function primarily 0.7-0.9 but has vacillated. 5BUN/creatinine 17/0.82, GFR 94. #5. BPH with obstructive pathology: Will continue patient on Flomax regimen, monitor for retention. #6. Hyperlipidemia: Given mild hyperbilirubinemia will temporarily hold statin therapy, resume onceappropriate. #7. Hx Squamous cell carcinoma of the scalp in situ status post resection: Lastdressing change 10/14/2024, noninfected appearing, will continue dressing changesper home regimen. #8. Former tobacco use: Encourage continued tobacco cessation. #9. DVT prophylaxis: Lovenox. #10. CODE status: Patient ADITYAOA is his and living will is currently in place. DNR-CCA, no intubation status. Charges/Coding Visit Charges Inpatient E&M: 45505 Subs Hosp L3 10/16/2419 Cosigner Signature (if applicable): CC: ~ Signed [facility]07-11-2025 Consult note Author Chitra Mo [facility] Note Date/Time October 15, 2024 2:06 pm [facility] Medical Records Department [address] [place] [address] Pharmacokinetic/Renal -Consult 10/15/24 1109 MR#: [id number] Acct: [id number] Name: LUTHER CASTILLO II Rep #:[id number] : 1955 69 From: Chitra Mo PCP: Dr. López Lilly MD Status :ADM IN Y Location: ICU ICU01-1 Consult Antibiotic Management Pharmacy has been consulted to manage selected antibiotic: Vancomycin Type of Intervention Type of Consult: New start Suspected Infection Suspected Infection: Sepsis Labs Labs: Sodium 137 mmol/L (133-145) 10/15/24 04:47 Potassium 4.0 mmol/L (3.3-5.1) 10/15/24 04:47 Chloride 101 mmol/L (98-108) 10/15/24 04:47 Carbon Dioxide 24.4 mmol/L (21.0-32.0) 10/15/24 04:47 Anion Gap 11 (5-15) 10/15/24 04:47 BUN 20 mg/dL (4-19) H 10/15/24 04:47 Creatinine 0.99 mg/dL (0.70-1.20) 10/15/24 04:47 Est GFR (MDRD) Non-Af 81 (>60) 10/15/24 04:47 BUN/Creatinine Ratio 20.6 RATIO (10-20) H 10/15/24 04:47 Glucose 103 mg/dL (70-99) H 10/15/24 04:47 Microbiology Microbiology: Microbiology 10/15/24 09:45 Urine Catheter - Catheter Legionella Antigen - Final 10/15/24 09:45 Urine Catheter - Catheter Streptococcus pneumoniae Antigen (M- Final Goal Trough Goal Trough: 15-20 mcg/mL Pharmacy Plan for Drug Dosing Pharmacy Plan for Drug Dosing: NEW START IV VANCOMYCIN Consulting Physician: Dr. Augustine Indication: Sepsis Goal Trough: 15-20 SrCr: 0.99 CrCl: 61.47 Comments: Received 1500mg x1 dose in ED @ 06:55 10/15/24 Vancomycin Dose: 750mg Q12H to start @ 19:00 10/15/24 Pending Level: 10/16/24 @ 18:30 Pharmacy Service will continue to monitor and adjust dosing as required. Follow-Up Labs Follow-Up Labs: Trough: Vancomycin (10/16/24 @ 18:30) 10/15/24 1110 <Electronically signed by Chitra Mo> Date _ Chitra Mo 10/15/24 1406 <Electronically signed by Lety nelson MD> Cosigner Signature (if applicable): Date Lety Augustine MD CC: ~ Signed [facility] Work Phone: [phone]) [phone] Consult note [facility] Medical Records Department [address] [place] [address] Pharmacokinetic/Renal -Consult 10/15/24 1109 MR#: [id number] Acct: [id number] Name: LUTHER CASTILLO II Rep #:[id number] : 1955 69 From: Chitra Mo PCP: Dr. López Lilly MD Status :ADM IN Location: ICU ICU01-1 Consult Antibiotic Management Pharmacy has been consulted to manage selected antibiotic: Vancomycin Type of Intervention Type of Consult: New start Suspected Infection Suspected Infection: Sepsis Labs Labs: Sodium 137 mmol/L (133-145) 10/15/24 04:47 Potassium 4.0 mmol/L (3.3-5.1) 10/15/24 04:47 Chloride 101 mmol/L (98-108) 10/15/24 04:47 Carbon Dioxide 24.4 mmol/L (21.0-32.0) 10/15/24 04:47 Anion Gap 11 (5-15) 10/15/24 04:47 BUN 20 mg/dL (4-19) H 10/15/24 04:47 Creatinine 0.99 mg/dL (0.70-1.20) 10/15/24 04:47 Est GFR (MDRD) Non-Af 81 (>60) 10/15/24 04:47 BUN/Creatinine Ratio 20.6 RATIO (10-20) H 10/15/24 04:47 Glucose 103 mg/dL (70-99) H 10/15/24 04:47 Microbiology Microbiology: Microbiology 10/15/24 09:45 Urine Catheter - Catheter Legionella Antigen - Final 10/15/24 09:45 Urine Catheter - Catheter Streptococcus pneumoniae Antigen (M- Final Goal Trough Goal Trough: 15-20 mcg/mL Pharmacy Plan for Drug Dosing Pharmacy Plan for Drug Dosing: NEW START IV VANCOMYCIN Consulting Physician: Dr. Augustine Indication: Sepsis Goal Trough: 15-20 SrCr: 0.99 CrCl: 61.47 Comments: Received 1500mg x1 dose in ED @ 06:55 10/15/24 Vancomycin Dose: 750mg Q12H to start @ 19:00 10/15/24 Pending Level: 10/16/24 @ 18:30 Pharmacy Service will continue to monitor and adjust dosing as required. Follow-Up Labs Follow-Up Labs: Trough: Vancomycin (10/16/24 @ 18:30) 10/15/24 1110 Date _ Chitra Mo 10/15/24 1406 e > Celineigner Signature (if applicable): Date Lety Augustine MD CC: ~ Signed [facility]07-11-2025 History and physical note Author Lety Augustine [facility] Note Date/Time October 15, 2024 11:5 1am [facility] Medical Records Department [address] [place] [address] H&P Exam - Hospitalist 10/15/24 0820 MR#: [id number] Acct: [id number] Name: LUTHER CASTILLO II Rep #:[id number] : 1955 69 From: Lety Augustine MD PCP: Dr. López Lilly MD Status :ADM IN Location: ICU ICU01-1 HPI - General General Date of Admission: 10/15/24 Date of Service: 10/15/24 Chief Complaint: Fever, chills, fatigue, malaise. 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 with ongoing localized skin care, CKD stage II per GFR trending, Chronic anemia, BPH with obstructive pathology, Stage IV Prostate CA w/ metastatic disease to the bone on immunotherapy/hormonal therapy, recent discharge 09/22/2024 following admission and evaluation for acute acalculous cholecystitis with associated severe sepsis with acute kidney injury and bacteremia complicated by underlying stage IV prostate cancer with metastatic disease to the bone on immunotherapy and hormonal therapy with blood cultures noted to grow Streptococcus intermedius andmethylol bacterium treated with IV Zosyn eventually transition to discharge to cefdinir 300 mg twice daily with stress dose steroids with planned follow-up at the [facility] with general surgery given [facility] surgery felt patient was too complicated with Case reviewed with his oncologist at discharge who now Aida presents to the [facility] ED on 10/15/24 with history of onset fatigue, malaise and fevers prompting ED return. Workup in the ED included T 100.2 max in the ED, heart rate 114, BP 125/71, respiratory rate 22, 96% on room air with most recent repeat vitals heart rate 98, BP 95/52 with map of 66, respiratory rate 21, 93% on room air with noted most low BP in the ED 83/50 with a MAP of 60, CBC with WC 8.2, hemonine 0.8, MCV82.4, platelet 129 without marked shift, CMP with BUN/creatinine 20/0.99, GFR 81, glucose 103, lactic acid 1.8, T. bili 1.46, T. bili 0.68 otherwise hepatic profile unremarkable, procalcitonin 0.87, urinalysis unremarkable, chest x-ray with bibasilar faint infiltrates, minimal bilateral pleural effusion, right eighth rib with a sclerotic lesion, CT abdomen and pelvis with resolution of previous bilateral pleural effusions as well as related compressive atelectasis,resolution of previous gallbladder mural edema, resolution of previous mild ascites, abdominal ultrasound with no definitive acute abnormalities with a negative sonographic Renee sign with wall of the gallbladder 3 mm with no stones identified, blood culture x 2 pending per ED, urine culture pending per ED. upon transition from the ED to the ICU patient does report feeling improved with less fatigue and malaise. [facility] Medical History Former tobacco use Acalculous cholecystitis Prostate cancer metastatic to bone CKD (chronic kidney disease), stage II Anemia Open wound of scalp with complication Home Medications ?Medication ?Instructions ?Recorded ?Last Taken ?Type abiraterone 250 mg tablet 1,000 mg PO DAILY prostate c ancer 12/11/23 09/17/24 History atorvastatin 20 mg tablet 20 mg PO QHS cholesterol 08/2809/17/24 History prednisone 5 mg tablet 10 mg PO BID prostate 09/17/24 History tamsulosin 0.4 mg capsule 0.4 mg PO DAILY prostate 08/2809/17/24 History leuprolide acetate (6 month) 45 mg 45 mg subcut .COMPL EX 02/05/24 09/15/24 History (6 month) subcutaneous syringe (Eligard) calcium 600 mg (as 2 tab PO DAILY calcium 10/15 Unknown History carbonate)-vitamin D3 5 mcg (200 unit) tablet (Calcium 600 + D(3)) cimetidine 200 mg tablet 200 mg PO DAILY 10/15/24 Unk nown History (Heartburn Relief (cimetidine)) darbepoetin dagmar in polysorbat 25 25 mcg subcut QMONTH 10/15/24 Unknown History mcg/mL in polysorbate injection (Aranesp) Allergy/AdvReac Type Severity Reaction Status Date / Time No Known Allergies Allergy Verified 10/15/24 04:35 Family History (Updated 10/15/24 @ 11:[address] Lety Augustine MD) Father Prostate cancer Hypertension Mother No problems noted. Surgical History 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 Status post Mohs surgery Social History (Updated 10/15/24 @ 11:[address] Lety Augustine MD) household members: spouse Smoking Status: Former smoker how long ago did patient quit smoking: Quit ~ 40 years prior, smoked <1 ppd in college. alcohol intake: current alcohol intake frequency: holidays/special occasions only ROS ROS Narrative Admission Review of Systems: CONSTITUTIONAL: No weight loss, + fever, chills, weakness or fatigue. HEENT: Eyes: No visual loss, blurred vision, double vision or yellow sclerae. Ears, Nose, Throat: No hearing loss, sneezing, congestion, runny nose or sore throat. SKIN: No rash or itching except + anterior scalp wound, well-appearing with ongoing outpatient dressing changes. CARDIOVASCULAR: No chest pain, chest pressure or chest discomfort, palpitations,edema, orthopnea, syncopal events. RESPIRATORY: No shortness of breath, cough or sputum, wheezing, hemoptysis. GASTROINTESTINAL: + Decreased appetite. No nausea, vomiting or diarrhea, abdominal pain, melena, BRBPR. GENITOURINARY: No dysuria, frequency, urgency or retention. NEUROLOGICAL: No headache, dizziness, syncope, paralysis, ataxia, numbness or tingling in the extremities, focal weakness, change in bowel or bladder control,seizure. MUSCULOSKELETAL: + muscle, back pain, joint pain or stiffness. HEMATOLOGIC: + Chronic anemia, easy bleeding/bruising. LYMPHATICS: No enlarged nodes. No history of splenectomy. PSYCHIATRIC: No history of depression or anxiety. ENDOCRINOLOGIC: No reports of sweating, cold or heat intolerance. No polyuria orpolydipsia. ALLERGIES: No history of asthma, hives, eczema or rhinitis. Vital Signs Vital Signs Vital Signs: 10/15/24 04:36 10/15/24 05:37 10/15/24 06:00 Temperature 100.2 F H 99.9 F H 99.9 F H Temperature Source Oral Oral Oral Pulse Rate 114 H 108 H 106 H Respiratory Rate 22 H 25 H 27 H Blood Pressure 125/71 H 94/52 L 93/51 L Blood Pressure Mean 89 66 65 Pulse Ox 96 96 97 Oxygen Delivery Method Room Air Room Air Room Air 10/15/24 06:09 10/15/24 06:16 10/15/24 06:24 Temperature 100.0 F H Temperature Source Oral Pulse Rate 107 H 104 H 103 H Respiratory Rate 27 H 26 H 22 H Blood Pressure 83/52 L 83/52 L Blood Pressure Mean 61 62 Pulse Ox 96 95 93 Oxygen Delivery Method Room Air 10/15/24 06:25 10/15/24 06:30 10/15/24 06:45 Temperature Temperature Source Pulse Rate 98 Respiratory Rate 21 H Blood Pressure 83/52 L 83/50 L 95/52 L Blood Pressure Mean 61 60 66 Pulse Ox 94 93 Oxygen Delivery Method Room Air 10/15/24 08:00 Temperature 98.6 F Temperature Source Oral Pulse Rate 93 Respiratory Rate 18 Blood Pressure 78/46 L Blood Pressure Mean 56 Pulse Ox 96 Oxygen Delivery Method Room Air Weight Weight: 139 lb 15.896 oz Body Mass Index (BMI) 22.6 Physical Exam Narrative Physical Examination: General: Awake, alert, oriented x 3 and cooperative, laying in the bed, fatiguedappearing, mildly pale but notes he feels better than initial arrival in the ED. Skin: Normal color, normal turgor, no icterus, no cyanosis except for occasionalstage ecchymoses, abrasion as well as scalp wound which is chronic status post previous squamous cell carcinoma skin resection. HEENT: AT aside from see skin/NC, EOMI, PERRLA, mildly dry MM, no carotid bruitsor JVD noted. Lungs: Mildly diminished, greater bases, appropriate effort, no rales, ronchi orwheezing. Heart: Regular rate and rhythm; no gallop, rub audible. Abdomen: Soft, NTTP including no discomfort in the right upper quadrant or epigastric region, ND, normal BS, no appreciated HSM. Extremities: No cyanosis, no clubbing, no distal edema noted. Neurological: Patient awake, alert, oriented as noted, cognitive function intact; pupils equally reactive to light and accommodation, cranial nerves grossly normal, moving all 4 extremities, no focal deficits, strength moderatelyglobal decrease secondary to acute presentation. Psychiatric: Affect appears mildly flat, fatigue but notes feeling improved since initial ED arrival, no acute evidence of depressive or anxiety feelings. Results Lab / Micro Data 10/15/24 04:47 10/15/24 04:47 Labs: Laboratory Results - last 24 hr 10/15/24 04:47: WBC 8.2, RBC 3.91 L, Hgb 9.8 L, Hct 32.2 L, MCV 82.4, MCH 25.1 L, MCHC 30.4 L, RDW Std Deviation 61.2 H, RDW Coeff of Lydia 20.5 H, Plt Count 129 L, MPV 9.0, Immature Gran % (Auto) 0.400, Neut % (Auto) 84.8 H, Lymph % (Auto) 10.6 L, Fillmore % (Auto) 3.5, Eos % (Auto) 0.6, Baso % (Auto) 0.1, Absolute Neuts (auto) 6.9, Absolute Lymphs (auto) 0.87, Nucleated RBC % 0, Anisocytosis 1+, Sodium 137, Potassium 4.0, Chloride 101, Carbon Dioxide 24.4, Anion Gap 11, BUN 20 H, Creatinine 0.99, Estim Creat Clear Calc 61.47, Est GFR (MDRD) Non-Af 81, BUN/Creatinine Ratio 20.6 H, Glucose 103 H, Lactic Acid 1.8, Calcium 9.1, Total Bilirubin 1.46 H, Direct Bilirubin 0.68 H, AST 23, ALT 19, Alkaline Phosphatase 129, Total Protein 7.1, Albumin 3.9, Globulin 3.2, Lipase 22, Procalcitonin 0.87H 10/15/24 05:10: Urine Color Yellow, Urine Clarity Clear, Urine pH 7.0, Ur Specific Spencer 1.010, Urine Protein Negative, Urine Glucose (UA) Normal, UrineKetones Negative, Urine Occult Blood Negative, Urine Nitrite Negative, Urine Bilirubin Negative, Urine Urobilinogen Normal, Ur Leukocyte Esterase Negative, Urine RBC 0 SEEN, Urine WBC 0 SEEN, Ur Squamous Epith Cells 0 SEEN, Urine Bacteria RARE, Urine Mucus 0 SEEN Imaging Radiology Impression Abdomen/Pelvis CT 10/15/24 05:30 IMPRESSION: Resolution of the bilateral pleural effusion as well as the related compression atelectasis. Resolution of the gall bladder mural edema. Resolution of the mild ascites. Stable rest of the study findings as detailed [facility] 10/15/24 05:32 IMPRESSION: Bilateral basal faint infiltrates.Minimal bilateral pleural effusion. Right 8th rib sclerotic lesion, Bones scan is advised. Reading [facility] Abdomen Ultrasound 10/15/24 06:36 IMPRESSION: No definite acute abnormalities. 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 with ongoing localized skin care, CKD stage II per GFR trending, Chronic anemia, BPH with obstructive pathology, Stage IV Prostate CA w/ metastatic disease to the bone on immunotherapy/hormonal therapy, recent discharge 09/22/2024 following admission and evaluation for acute acalculous cholecystitis with associated severe sepsis with acute kidney injury and bacteremia complicated by underlying stage IV prostate cancer with metastatic disease to the bone on immunotherapy and hormonal therapy with blood cultures noted to grow Streptococcus intermedius andmethylol bacterium treated with IV Zosyn eventually transition to discharge to cefdinir 300 mg twice daily with stress dose steroids with planned follow-up at the [facility] with general surgery given [facility] surgery felt patient was too complicated with Case reviewed with his oncologist at discharge who now Aida presents to the [facility] ED on 10/15/24 with history of onset fatigue, malaise and fevers prompting ED return. #1. Shock, Undifferentiated, concern for potentially Septic but unclear source,recent presentation Acute acalculous cholecystitis but current presentation without abdominal pain/normal GB US: Will admit to the ICU, will maintain on broad- spectrum antibiotic therapy with IV Zosyn and IV vancomycin, MRSA screen requested, will initiate on stress dose steroids additionally, will maintain on norepinephrine, will request PICC line placement, municipal maintenance worker consulted and following, blood culture x 2 as well as urine culture pending per ED, will request respiratory viral panel, sputum culture, urine antigens but again at this point no obvious source as surgery did review imaging in the ED and did notfeel his gallbladder was the cause of his current presentation, infectious disease consulted and following. Cosyntropin testing ordered per municipal maintenance worker incase of adrenal insufficiency as etiology. #2. Stage IV prostate cancer with metastatic disease to the bone: Following with oncology on immunotherapy/immunotherapy, temporally holding, magnesium and phosphorus levels requested, complicates presentation. #3. Chronic normocytic anemia: Admission hemoglobin 9.8, MCV 82.4, baseline hemoglobin primarily 8-9, will continue to trend. #4. Chronic Kidney Disease Stage II per GFR trending: Admission BUN/Cr 20/0.99,GFR 81, baseline renal function primarily 0.7-0.9 but has vacillated, repeat BMPin AM. #5. BPH with obstructive pathology: Will continue patient on Flomax regimen, monitor for retention. #6. Hyperlipidemia: Given mild hyperbilirubinemia will temporarily hold statin therapy, resume once appropriate. #7. Hx Squamous cell carcinoma of the scalp in situ status post resection: Lastdressing change the day prior per discussion with patient, does not appear infected, discussed with nursing staff and requested that they continue dressingchanges per his home regimen. #8. Former tobacco use: Encourage continued tobacco cessation. #9. DVT prophylaxis: Lovenox. #10. CODE status: Patient PARVEZ is his and living will is currently in place. Discussed CODE status at length including difference between FULL code, DNR-CCA and DNR-CC status. Following discussions about the differences in these status, requested DNR-CCA, no intubation status. Advanced Care Planning Face to Face Time: 16 minutes. Sepsis Attestation Sepsis Alert: Yes Sepsis Attestation: Agree w/Sepsis Date exam was performed: 10/15/24 Time exam was performed: 08:20 Possible Source of Sepsis: Unknown Sepsis Organ Dysfunction Criteria Present: SBP < 90 mmHg or MAP < 65 mmHg Fluid Resuscitation Fluid resuscitation indicated?: Yes Fluid Resuscitation ordered: 30 ml/kg fluid bolus ordered Sepsis Note Date exam was performed: 10/15/24 Time exam was performed: 08:20 Sepsis Attestation: Sepsis re-evaluation was performed Response to fluids: Non Fluid responsive hypotension and Vasopressors started Charges/Coding Visit Charges Inpatient E&M: 16446 Init Hosp L3 Procedures Hospitalists Procedures: 11122 Advncd Care Plan 30 Min 10/15/24 1150 <Electronically signed by Lety Augustine MD> Cosigner Signature (if applicable): CC: Dr. Lety Augustine MD; Dr. López Lilly MD~ Signed ADDENDUM by Dr. Lety Augustine MD on 10/15/24 at 1151 Addendum Patient BP improved on NEP, continue to monitor. Sepsis Attestation Fluid Resuscitation Fluid resuscitation indicated?: Yes Fluid Resuscitation ordered: 30 ml/kg fluid bolus ordered Sepsis Note Date exam was performed: 10/15/24 Time exam was performed: 11:50 Sepsis Attestation: Sepsis re-evaluation was performed Response to fluids: Non Fluid responsive hypotension and Vasopressors started 10/15/24 1151<Electronically signed by Lety Augustine MD> Cosigner Signature (if applicable): cc: Dr. Lety Augustine MD; Dr. López Lilly MD ~* Signed [facility] Work Phone: 1(122) [phone] Consult note Author Carlos Melvin [facility] Note Date/Time October 15, 2024 11:0 0am [facility] Medical Records Department [address] [place] [address] Consultation - Soft Sugar Supervisor 10/15/24 1000 MR#: [id number] Acct: [id number] Name: LUTHER CASTILLO II Rep #:[id number] : 1955 69 From: Carlos Melvin DO PCP: Dr. López Lilly MD Status :ADM IN Location: ICU ICU01-1 Assessment & Plan Assessment/Plan (1) Hypotension: PLAN: Plan RECOMMENDATIONS: 1. Complete fluid resuscitation as ordered. 2. Continue Levophed. Start scheduled midodrine. 3. Continue stress dose steroids. 4. Broad-spectrum antimicrobials, pending infectious workup. 5. DVT prophylaxis as ordered. IMPRESSIONS: 1. Undifferentiated shock Potential etiologies include sepsis versus hypovolemia versus relative adrenal insufficiency. PE seems unlikely, given that the patient is not hypoxemic. Thepatient did receive IV fluid resuscitation in the emergency department. He was ultimately placed on vasopressor support. The patient did confirm that his blood pressures are typically low at baseline. He is mentating appropriately with a normal lactate. Therefore, recommend titrating Levophed to maintain a systolic pressure at or above 90 mmHg. The patient will be continued on empiricbroad-spectrum antimicrobials. However, no definitive source of infection has yet to be identified. Lastly, given that the patient is on corticosteroids, stress dose steroids will be initiated. Cosyntropin stimulation test is pending. 2. History of stage IV prostate CA on therapy through [facility] oncology/chronic anemia and thrombocytopenia/BPH Complicates care, management, recovery and prognosis. Continue home medicationsas indicated. TIME: 35 minutes of critical care time, independent of procedures, was spent addressing the patient's undifferentiated shock, review of all data and collaboration with care team. HPI Consult Data Date of Consult: 10/15/24 HPI Narrative Reason for Consultation: Hypotension HPI Narrative: The patient is a 69-year-old male, with a history as outlined below, who presented to the emergency department on October 15 with generalized malaise, fatigue and subjective fever. The patient was recently admitted to the hospitalJun with dizziness and hypotension. Workup during that hospitalization revealed findings concerning for possible acalculous cholecystitis. The patient was noted to be bacteremic with blood cultures positive for Streptococcus intermedius and haemophilus parainfluenza. The patient was treated with antimicrobial therapy and was placed on steroids as there was concern that the hormonal therapy that he was receiving for his prostate cancer could lead to glucocorticoid deficiency. The patient is currently being followed by Dr. Villarreal of oncology at [facility] dueto a history of stage IV prostate cancer currently on immunotherapy. On presentation to the emergency department, the patient was documented to have a fever of 100.2 ?F. He was tachycardic and tachypneic with an initial blood pressure of 125/71 mmHg. However, during his emergency department course, the patient became progressively hypotensive. He did receive IV fluid resuscitationand was ultimately placed on Levophed. White blood cell count was noted to be normal. Hemoglobin was stable. Platelet count was stable at 129,000, in the setting of a history of thrombocytopenia. Chemistry profile was unremarkable. Creatinine was within normal limits. Lactate was normal. Total bilirubin was increased at 1.46. AST and ALT were normal. Lipase was normal. Procalcitonin was only mildly elevated at 0.87. Urine analysis was unremarkable. CT abdomen/pelvis demonstrated no significant abnormalities. Chest x-ray demonstrated no acute cardiopulmonary process. Abdominal ultrasound was unremarkable. The patient did receive antimicrobial therapy and was subsequently admitted to the medical intensive care unit for further management. [facility] Medical History Open wound of scalp with complication Wound dehiscence Surgical wound breakdown Cancer Dizziness Home Medications ?Medication ?Instructions ?Recorded ?Last Taken ?Type abiraterone 250 mg tablet 1,000 mg PO DAILY prostate c ancer 12/11/23 09/17/24 History atorvastatin 20 mg tablet 20 mg PO QHS cholesterol 08/2809/17/24 History prednisone 5 mg tablet 10 mg PO BID prostate 09/17/24 History tamsulosin 0.4 mg capsule 0.4 mg PO DAILY prostate 08/2809/17/24 History leuprolide acetate (6 month) 45 mg 45 mg subcut .COMPL EX 02/05/24 09/15/24 History (6 month) subcutaneous syringe ([email or web address]) calcium 600 mg (as 2 tab PO DAILY calcium 10/15 Unknown History carbonate)-vitamin D3 5 mcg (200 unit) tablet (Calcium 600 + D(3)) cimetidine 200 mg tablet 200 mg PO DAILY 10/15/24 Unk nown History (Heartburn Relief (cimetidine)) darbepoetin dagmar in polysorbat 25 25 mcg subcut QMONTH 10/15/24 Unknown History mcg/mL in polysorbate injection (Aranesp) Allergy/AdvReac Type Severity Reaction Status Date / Time No Known Allergies Allergy Verified 10/15/24 04:35 Family History Other Cancer Surgical History 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 Status post Mohs surgery Social History Smoking Status: Never smoker ROS ROS Narrative 10 systems were reviewed with pertinent positives as noted in the HPI above. Physical Exam Const alert, oriented x3 and no apparent distress Constitutional Narrative: is present at the bedside. General Appearance: Negative for ill appearing HEENT normocephalic, head/scalp atraumatic and moist oral mucous membranes Eyes PERRL, EOMs intact bilaterally and conjunctivae normal Neck supple General: trachea midline Chest inspection of chest normal Resp normal respiratory effort Auscultation: Negative for rales, rhonchi or wheezes Cardio regular rate and regular rhythm GI normal to inspection, nondistended, normoactive bowel sounds and non-tender Extremity no clubbing, cyanosis or edema Skin no rashes or lesions noted Neuro CN's II-XII intact bilaterally, moves all extremities and no focal motor deficits Psych cooperative and affect normal Lab / Micro Data 10/15/24 04:47 10/15/24 04:47 Labs: Laboratory Results - last 24 hr 10/15/24 04:47: WBC 8.2, RBC 3.91 L, Hgb 9.8 L, Hct 32.2 L, MCV 82.4, MCH 25.1 L, MCHC 30.4 L, RDW Std Deviation 61.2 H, RDW Coeff of Lydia 20.5 H, Plt Count 129 L, MPV 9.0, Immature Gran % (Auto) 0.400, Neut % (Auto) 84.8 H, Lymph % (Auto) 10.6 L, Fillmore % (Auto) 3.5, Eos % (Auto) 0.6, Baso % (Auto) 0.1, Absolute Neuts (auto) 6.9, Absolute Lymphs (auto) 0.87, Nucleated RBC % 0, Anisocytosis 1+, Sodium 137, Potassium 4.0, Chloride 101, Carbon Dioxide 24.4, Anion Gap 11, BUN 20 H, Creatinine 0.99, Estim Creat Clear Calc 61.47, Est GFR (MDRD) Non-Af 81, BUN/Creatinine Ratio 20.6 H, Glucose 103 H, Lactic Acid 1.8, Calcium 9.1, Total Bilirubin 1.46 H, Direct Bilirubin 0.68 H, AST 23, ALT 19, Alkaline Phosphatase 129, Total Protein 7.1, Albumin 3.9, Globulin 3.2, Lipase 22, Procalcitonin 0.87H 10/15/24 05:10: Urine Color Yellow, Urine Clarity Clear, Urine pH 7.0, Ur Specific Spencer 1.010, Urine Protein Negative, Urine Glucose (UA) Normal, UrineKetones Negative, Urine Occult Blood Negative, Urine Nitrite Negative, Urine Bilirubin Negative, Urine Urobilinogen Normal, Ur Leukocyte Esterase Negative, Urine RBC 0 SEEN, Urine WBC 0 SEEN, Ur Squamous Epith Cells 0 SEEN, Urine Bacteria RARE, Urine Mucus 0 SEEN Imaging Radiology Impression Abdomen/Pelvis CT 10/15/24 05:30 IMPRESSION: Resolution of the bilateral pleural effusion as well as the related compression atelectasis. Resolution of the gall bladder mural edema. Resolution of the mild ascites. Stable rest of the study findings as detailed Reading Location: [place] [address] Chest X-Ray 10/15/24 05:32 IMPRESSION: Bilateral basal faint infiltrates.Minimal bilateral pleural effusion. Right 8th rib sclerotic lesion, Bones scan is advised. Reading Location: [place] [address] Abdomen Ultrasound 10/15/24 06:36 IMPRESSION: No definite acute abnormalities. Reading Location: [place] [address] Charges/Coding Procedures Hospitalists Procedures: 37697 Critical Care 1st Hr 10/15/24 1100 <Electronically signed by Carlos Melvin DO> Cosigner Signature (if applicable): CC: Dr. López Lilly MD~ Signed [facility] Work Phone: 1(844) 858-952107-11-2025 Consult note Author Rocco [facility] Note Date/Time October 15, 2024 10:5 2am [facility] Medical Records Department [address] [place] [id number] Consultation - Infectious Dx 10/15/24 1044 MR#: [id number] Acct: [id number] Name: LUTHER CASTILLO II Rep #:[id number] : 1955 69 From: Rocco tinajero MD PCP: Dr. López Lilly MD Status :ADM IN Location: ICU ICU01-1 Assessment & Plan Assessment/Plan (1) Prostate cancer: (2) Septic shock: PLAN: Admit 3 weeks ago with suspected cholecystitis and strep and haemophilus bacteremia. LFTs improved, CT and US done here with no sign of infection. No focal symptoms other than back pain, but no tenderness on exam. UAgs neg. Contempiric vanc/zosyn. Will follow, thank you, d/w Dr. Augustine and Dr. Melvin HPI Consult Data Date of Consult: 10/15/24 HPI Narrative Reason for Consultation: septic shock HPI Narrative: LUTHER CASTILLO, is a 69 M with metastatic prostate cancer, on immunotherapy, recent discharge 09/22 for suspected cholecystitis with bacteremia (+) strep intermedius and Haeomphilus. Sent home on po cefdinir x8 days. Reports completing treatment, feeling fine since then, until past few days some low backpain, then yesterday new fever, chills, sweats, weakness. Came to ED, admitted to icu with septic shock on vanc/zosyn. Feeling ok, no dysuria, no cough, no abd pain, no n/v/d, no rash, no body aches. No sick contacts. Full ROS performed and neg except as noted above. Some mild headache s/p Mohs toR scalp. [facility] Medical History Open wound of scalp with complication Wound dehiscence Surgical wound breakdown Cancer Dizziness Home Medications ?Medication ?Instructions ?Recorded ?Last Taken ?Type abiraterone 250 mg tablet 1,000 mg PO DAILY prostate c ancer 12/11/23 09/17/24 History atorvastatin 20 mg tablet 20 mg PO QHS cholesterol 08/2809/17/24 History prednisone 5 mg tablet 5 mg PO BID prostate 4 09/17/24 History tamsulosin 0.4 mg capsule 0.4 mg PO DAILY prostate 08/2809/17/24 History leuprolide acetate (6 month) 45 mg 45 mg subcut .COMPL EX 02/05/24 09/15/24 History (6 month) subcutaneous syringe (Eligard) calcium 600 mg (as 2 tab PO DAILY calcium 10/15 Unknown History carbonate)-vitamin D3 5 mcg (200 unit) tablet (Calcium 600 + D(3)) cimetidine 200 mg tablet 200 mg PO DAILY 10/15/24 Unk nown History (Heartburn Relief (cimetidine)) darbepoetin dagmar in polysorbat 25 25 mcg subcut QMONTH 10/15/24 Unknown History mcg/mL in polysorbate injection (Aranesp) Allergy/AdvReac Type Severity Reaction Status Date / Time No Known Allergies Allergy Verified 10/15/24 04:35 Family History Other Cancer Surgical History 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 Status post Mohs surgery Social History Smoking Status: Never smoker Physical Exam Const alert, oriented x3 and no apparent distress General Appearance: cooperative HEENT normocephalic and head/scalp atraumatic HEENT Narrative: Bandage on R scalp, no redness Eyes PERRL and EOMs intact bilaterally Neck supple and No nodes Resp normal air movement and clear to auscultation bilaterally Cardio regular rate and regular rhythm GI soft to palpation, non-tender and non-distended GI Narrative: No flank or lumbar tenderness Extremity General Extremity: Negative for edema Skin no rashes or lesions noted Neuro CN's II-XII intact bilaterally Lab / Micro Data Attestation: I reviewed the patient's lab results. 10/15/24 04:47 10/15/24 04:47 Labs: Laboratory Results - last 24 hr 10/15/24 04:47: WBC 8.2, RBC 3.91 L, Hgb 9.8 L, Hct 32.2 L, MCV 82.4, MCH 25.1 L, MCHC 30.4 L, RDW Std Deviation 61.2 H, RDW Coeff of Lydia 20.5 H, Plt Count 129 L, MPV 9.0, Immature Gran % (Auto) 0.400, Neut % (Auto) 84.8 H, Lymph % (Auto) 10.6 L, Fillmore % (Auto) 3.5, Eos % (Auto) 0.6, Baso % (Auto) 0.1, Absolute Neuts (auto) 6.9, Absolute Lymphs (auto) 0.87, Nucleated RBC % 0, Anisocytosis 1+, Sodium 137, Potassium 4.0, Chloride 101, Carbon Dioxide 24.4, Anion Gap 11, BUN 20 H, Creatinine 0.99, Estim Creat Clear Calc 61.47, Est GFR (MDRD) Non-Af 81, BUN/Creatinine Ratio 20.6 H, Glucose 103 H, Lactic Acid 1.8, Calcium 9.1, Total Bilirubin 1.46 H, Direct Bilirubin 0.68 H, AST 23, ALT 19, Alkaline Phosphatase 129, Total Protein 7.1, Albumin 3.9, Globulin 3.2, Lipase 22, Procalcitonin 0.87H 10/15/24 05:10: Urine Color Yellow, Urine Clarity Clear, Urine pH 7.0, Ur Specific Spencer 1.010, Urine Protein Negative, Urine Glucose (UA) Normal, UrineKetones Negative, Urine Occult Blood Negative, Urine Nitrite Negative, Urine Bilirubin Negative, Urine Urobilinogen Normal, Ur Leukocyte Esterase Negative, Urine RBC 0 SEEN, Urine WBC 0 SEEN, Ur Squamous Epith Cells 0 SEEN, Urine Bacteria RARE, Urine Mucus 0 SEEN Micro: Microbiology 10/15/24 09:45 Urine Catheter - Catheter Legionella Antigen - Final 10/15/24 09:45 Urine Catheter - Catheter Streptococcus pneumoniae Antigen (M- Final Imaging Radiology Impression Abdomen/Pelvis CT 10/15/24 05:30 IMPRESSION: Resolution of the bilateral pleural effusion as well as the related compression atelectasis. Resolution of the gall bladder mural edema. Resolution of the mild ascites. Stable rest of the study findings as detailed Reading Location: [place] [address] Chest X-Ray 10/15/24 05:32 IMPRESSION: Bilateral basal faint infiltrates.Minimal bilateral pleural effusion. Right 8th rib sclerotic lesion, Bones scan is advised. Reading Location: [place] [address] Abdomen Ultrasound 10/15/24 06:36 IMPRESSION: No definite acute abnormalities. Reading Location: [place] [address] 10/15/24 1052 <Electronically signed by Rocco Fatima MD> Cosigner Signature (if applicable): CC: Dr. López Lilly MD~ Signed [facility] Work Phone: 1(704) [phone] History and physical note [facility] Medical Records Department [address] [place] [address] H&P Exam - Hospitalist 10/15/24 08 MR#: [id number] Acct: [id number] Name: LUTHER CASTILLO II Rep #:[id number] : 1955 69 From: Lety Augustine MD PCP: Dr. López Lilly MD Status :ADM IN Location: ICU ICU01-1 HPI - General General Date of Admission: 10/15/24 Date of Service: 10/15/24 Chief Complaint: Fever, chills, fatigue, malaise. 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 with ongoing localized skin care, CKD stage II per GFR trending, Chronicanemia, BPH with obstructive pathology, Stage IV Prostate CA w/ metastatic disease to the bone on im munotherapy/hormonal therapy, recent discharge 09/22/2024 following admission and evaluation for acute acalculous cholecystitis with associated severe sepsis with acute kidney injury and bacteremia complicated by underlying stage IV prostate cancer with metastatic disease to the bone on immunotherapy and hormonal therapy with blood cultures noted to grow Streptococcus intermedius andmethylol bacter ium treated with IV Zosyn eventually transition to discharge to cefdinir 300 mg twice daily with stress dose steroids with planned follow-up at the [facility] with general surgery given [facility] surgery felt patient was too complicated with Case reviewed with his oncologist at discharge who now Aida presents to the [facility] ED on 10/15/24 with history of on set fatigue, malaise and fevers prompting ED return. Workup in the ED included T 100.2 max in the ED, heart rate 114, BP 125/71, respiratory rate 22, 96% on room air with most recent repeat vitals heart rate 98, BP 95/52 with map of 66, respiratory rate 21, 93% on room air with noted most low BP inthe ED 83/50 with a MAP of 60, CBC with WC 8.2, hemonine 0.8, MCV82.4, platelet 129 without marked shift, CMP with BUN/creatinine 20/0.99, GFR 81, glucose 103, lactic acid 1.8, T. bili 1.46, T. bili 0.68 otherwise hepatic profile unremarkable, procalcitonin 0.87, urinalysis unremarkable, chest x-ray with bibasilar faint infiltrates, minimal bilateral pleural effusion, right eighth rib with a sclerotic lesion, CT abdomen and pelvis with resolution of previous bilateral pleural effusions as well as related compressive atelectasis,resolution of previous gallbladder mural edema, resolution of previous mild ascites, abdominal ultrasound with no definitive acute abnormalities with a negative sonographic Renee sign with wall of the gallbladder 3 mm with no stones identified, blood culture x 2 pending per ED, urine culture pending per ED. upon transition from the ED to the ICU patient does report feeling improved with less fatigue and malaise. [facility] Medical History Former tobacco use Acalculous cholecystitis Prostate cancer metastatic to bone CKD (chronic kidney disease), stage II Anemia Open wound of scalp with complication Home Medications ?Medication ?Instructions ?Recorded ?Last Taken ?Type abiraterone 250 mg tablet 1,000 mg PO DAILY prostate c ancer 12/11/23 09/17/24 History atorvastatin 20 mg tablet 20 mg PO QHS cholesterol 08/2809/17/24 History prednisone 5 mg tablet 10 mg PO BID prostate 09/17/24 History tamsulosin 0.4 mg capsule 0.4 mg PO DAILY prostate 08/2809/17/24 History leuprolide acetate (6 month) 45 mg 45 mg subcut .COMPL EX 02/05/24 09/15/24 History (6 month) subcutaneous syringe (Eligard) calcium 600 mg (as 2 tab PO DAILY calcium 10/15 Unknown History carbonate)-vitamin D3 5 mcg (200 unit) tablet (Calcium 600 + D(3)) cimetidine 200 mg tablet 200 mg PO DAILY 10/15/24 Unk nown History (Heartburn Relief (cimetidine)) darbepoetin dagmar in polysorbat 25 25 mcg subcut QMONTH 10/15/24 Unknown History mcg/mL in polysorbate injection (Aranesp) Allergy/AdvReac Type Severity Reaction Status Date / Time No Known Allergies Allergy Verified 10/15/24 04:35 Family History (Updated 10/15/24 @ 11:[address] Lety Augustine MD) Father Prostate cancer Hypertension Mother No problems noted. Surgical History 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 Status post Mohs surgery Social History (Updated 10/15/24 @ 11:[address] Lety Augustine MD) household members: spouse Smoking Status: Former smoker how long ago did patient quit smoking: Quit ~ 40 years prior, smoked <1 ppd in college. alcohol intake: current alcohol intake frequency: holidays/special occasions only ROS ROS Narrative Admission Review of Systems: CONSTITUTIONAL: No weight loss, + fever, chills, weakness or fatigue. HEENT: Eyes: No visual loss, blurred vision, double vision or yellow sclerae. Ears, Nose, Throat: No hearing loss, sneezing, congestion, runny nose or sore throat. SKIN: No rash or itching except + anterior scalp wound, well-appearing with ongoing outpatient dressing changes. CARDIOVASCULAR: No chest pain, chest pressure or chest discomfort, palpitations,edema, orthopnea, syncopal events. RESPIRATORY: No shortness of breath, cough or sputum, wheezing, hemoptysis. GASTROINTESTINAL: + Decreased appetite. No nausea, vomiting or diarrhea, abdominal pain, melena, BRBPR. GENITOURINARY: No dysuria, frequency, urgency or retention. NEUROLOGICAL: No headache, dizziness, syncope, paralysis, ataxia, numbness or tingling in the extremities, focal weakness, change in bowel or bladder control,seizure. MUSCULOSKELETAL: + muscle, back pain, joint pain or stiffness. HEMATOLOGIC: + Chronic anemia, easy bleeding/bruising. LYMPHATICS: No enlarged nodes. No history of splenectomy. PSYCHIATRIC: No history of depression or anxiety. ENDOCRINOLOGIC: No reports of sweating, cold or heat intolerance. No polyuria orpolydipsia. ALLERGIES: No history of asthma, hives, eczema or rhinitis. Vital Signs Vital Signs Vital Signs: 10/15/24 04:36 10/15/24 05:37 10/15/24 06:00 Temperature 100.2 F H 99.9 F H 99.9 F H Temperature Source Oral Oral Oral Pulse Rate 114 H 108 H 106 H Respiratory Rate 22 H 25 H 27 H Blood Pressure 125/71 H 94/52 L 93/51 L Blood Pressure Mean 89 66 65 Pulse Ox 96 96 97 Oxygen Delivery Method Room Air Room Air Room Air 10/15/24 06:09 10/15/24 06:16 10/15/24 06:24 Temperature 100.0 F H Temperature Source Oral Pulse Rate 107 H 104 H 103 H Respiratory Rate 27 H 26 H 22 H Blood Pressure 83/52 L 83/52 L Blood Pressure Mean 61 62 Pulse Ox 96 95 93 Oxygen Delivery Method Room Air 10/15/24 06:25 10/15/24 06:30 10/15/24 06:45 Temperature Temperature Source Pulse Rate 98 Respiratory Rate 21 H Blood Pressure 83/52 L 83/50 L 95/52 L Blood Pressure Mean 61 60 66 Pulse Ox 94 93 Oxygen Delivery Method Room Air 10/15/24 08:00 Temperature 98.6 F Temperature Source Oral Pulse Rate 93 Respiratory Rate 18 Blood Pressure 78/46 L Blood Pressure Mean 56 Pulse Ox 96 Oxygen Delivery Method Room Air Weight Weight: 139 lb 15.896 oz Body Mass Index (BMI) 22.6 Physical Exam Narrative Physical Examination: General: Awake, alert, oriented x 3 and cooperative, laying in the bed, fatiguedappearing, mildly pale but notes he feels better than initial arrival in the ED. Skin: Normal color, normal turgor, no icterus, no cyanosis except for occasionalstage ecchymoses, abrasion as well as scalp wound which is chronic status post previous squamous cell carcinoma skin resection. HEENT: AT aside from see skin/NC, EOMI, PERRLA, mildly dry MM, no carotid bruitsor JVD noted. Lungs: Mildly diminished, greater bases, appropriate effort, no rales, ronchi orwheezing. Heart: Regular rate and rhythm; no gallop, rub audible. Abdomen: Soft, NTTP including no discomfort in the right upper quadrant or epigastric region, ND, normal BS, no appreciated HSM. Extremities: No cyanosis, no clubbing, no distal edema noted. Neurological: Patient awake, alert, oriented as noted, cognitive function intact; pupils equally reactive to light and accommodation, cranial nerves grossly normal, moving all 4 extremities, no focaldeficits, strength moderatelyglobal decrease secondary to acute presentation. Psychiatric: Affect appears mildly flat, fatigue but notes feeling improved since initial ED arrival, no acute evidence of depressive or anxiety feelings. Results Lab / Micro Data 10/15/24 04:47 10/15/24 04:47 Labs: Laboratory Results - last 24 hr 10/15/24 04:47: WBC 8.2, RBC 3.91 L, Hgb 9.8 L, Hct 32.2 L, MCV 82.4, MCH 25.1 L, MCHC 30.4 L, RDW Std Deviation 61.2 H, RDW Coeff of Lydia 20.5 H, Plt Count 129 L, MPV 9.0, Immature Gran % (Auto) 0.400, Neut % (Auto) 84.8 H, Lymph % (Auto) 10.6 L, Fillmore % (Auto) 3.5, Eos % (Auto) 0.6, Baso % (Auto) 0.1, Absolute Neuts (auto) 6.9, Absolute Lymphs (auto) 0.87, Nucleated RBC % 0, Anisocytosis 1+, Sodium 137, Potassium 4.0, Chloride 101, Carbon Dioxide 24.4, Anion Gap 11, BUN 20 H, Creatinine 0.99, Estim Creat Clear Calc 61.47, Est GFR (MDRD) Non-Af 81, BUN/Creatinine Ratio 20.6 H, Glucose 103 H, Lactic Acid 1.8, Calcium 9.1, Total Bilirubin 1.46 H, Direct Bilirubin 0.68 H, AST 23, ALT 19, Alkaline Phosphatase 129, Total Protein 7.1, Albumin 3.9, Globulin 3.2, Lipase 22, Procalcitonin 0.87H 10/15/24 05:10: Urine Color Yellow, Urine Clarity Clear, Urine pH 7.0, Ur Specific Spencer 1.010, Urine Protein Negative, Urine Glucose (UA) Normal, UrineKetones Negative, Urine Occult Blood Negative, Urine Nitrite Negative, Urine Bilirubin Negative, Urine Urobilinogen Normal, Ur Leukocyte Esterase Negative, Urine RBC 0 SEEN, Urine WBC 0 SEEN, Ur Squamous Epith Cells 0 SEEN, Urine Bacteria RARE, Urine Mucus 0 SEEN Imaging Radiology Impression Abdomen/Pelvis CT 10/15/24 05:30 IMPRESSION: Resolution of the bilateral pleural effusion as well as the related compression atelectasis. Resolution of the gall bladder mural edema. Resolution of the mild ascites. Stable rest of the study findings as detailed [facility] 10/15/24 05:32 IMPRESSION: Bilateral basal faint infiltrates.Minimal bilateral pleural effusion. Right 8th rib sclerotic lesion, Bones scan is advised. Reading Location: [place] [address] Abdomen Ultrasound 10/15/24 06:36 IMPRESSION: No definite acute abnormalities. 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 with ongoing localized skin care, CKD stage II per GFR trending, Chronicanemia, BPH with obstructive pathology, Stage IV Prostate CA w/ metastatic disease to the bone on im munotherapy/hormonal therapy, recent discharge 09/22/2024 following admission and evaluation for acute acalculous cholecystitis with associated severe sepsis with acute kidney injury and bacteremia complicated by underlying stage IV prostate cancer with metastatic disease to the bone on immunotherapy and hormonal therapy with blood cultures noted to grow Streptococcus intermedius andmethylol bacter ium treated with IV Zosyn eventually transition to discharge to cefdinir 300 mg twice daily with stress dose steroids with planned follow-up at the [facility] with general surgery given [facility] surgery felt patient was too complicated with Case reviewed with his oncologist at discharge who now Aida presents to the [facility] ED on 10/15/24 with history of on set fatigue, malaise and fevers prompting ED return. #1. Shock, Undifferentiated, concern for potentially Septic but unclear source,recent presentation Acute acalculous cholecystitis but current presentation without abdominal pain/normal GB US: Will admit to the ICU, will maintain on broad-spectrum antibiotic therapy with IV Zosyn and IV vancomycin, M RSA screen requested, will initiate on stress dose steroids additionally, will maintain on norepinephrine, will request PICC line placement, municipal maintenance worker consulted and following, blood culture x 2 as well as urine culture pending per ED, will request respiratory viral panel, sputum culture, urine antigens but again at this point no obvious source as surgery did review imaging in the ED and did notfeel his gallbladder was the cause of his current presentation, infectious disease consulted and following. Cosyntropin testing ordered per municipal maintenance worker incase of adrenal insufficiency as etiology. #2. Stage IV prostate cancer with metastatic disease to the bone: Following with oncology on immunotherapy/immunotherapy, temporally holding, magnesium and phosphorus levels requested, complicates presentation. #3. Chronic normocytic anemia: Admission hemoglobin 9.8, MCV 82.4, baseline hemoglobin primarily 8-9, will continue to trend. #4. Chronic Kidney Disease Stage II per GFR trending: Admission BUN/Cr 20/0.99,GFR 81, baseline renal function primarily 0.7-0.9 but has vacillated, repeat BMPin AM. #5. BPH with obstructive pathology: Will continue patient on Flomax regimen, monitor for retention. #6. Hyperlipidemia: Given mild hyperbilirubinemia will temporarily hold statin therapy, resume onceappropriate. #7. Hx Squamous cell carcinoma of the scalp in situ status post resection: Lastdressing change the day prior per discussion with patient, does not appear infected, discussed with nursing staff and requested that they continue dressingchanges per his home regimen. #8. Former tobacco use: Encourage continued tobacco cessation. #9. DVT prophylaxis: Lovenox. #10. CODE status: Patient PARVEZ is his and living will is currently in place. Discussed CODE status at length including difference between FULL code, DNR-CCA and DNR-CC status. Following discussions about the differences in these status, requested DNR-CCA, no intubation status. Advanced Care Planning Face to Face Time: 16 minutes. Sepsis Attestation Sepsis Alert: Yes Sepsis Attestation: Agree w/Sepsis Date exam was performed: 10/15/24 Time exam was performed: 08:20 Possible Source of Sepsis: Unknown Sepsis Organ Dysfunction Criteria Present: SBP < 90 mmHg or MAP < 65 mmHg Fluid Resuscitation Fluid resuscitation indicated?: Yes Fluid Resuscitation ordered: 30 ml/kg fluid bolus ordered Sepsis Note Date exam was performed: 10/15/24 Time exam was performed: 08:20 Sepsis Attestation: Sepsis re-evaluation was performed Response to fluids: Non Fluid responsive hypotension and Vasopressors started Charges/Coding Visit Charges Inpatient E&M: 96704 Init Hosp L3 Procedures Hospitalists Procedures: 56556 Advncd Care Plan 30 Min 10/15/24 1150 Cosigner Signature (if applicable): CC: Dr. Lety Augustine MD; Dr. López Lilly MD~ Signed ADDENDUM by Dr. Lety Augustine MD on 10/15/24 at 1151 Addendum Patient BP improved on NEP, continue to monitor. Sepsis Attestation Fluid Resuscitation Fluid resuscitation indicated?: Yes Fluid Resuscitation ordered: 30 ml/kg fluid bolus ordered Sepsis Note Date exam was performed: 10/15/24 Time exam was performed: 11:50 Sepsis Attestation: Sepsis re-evaluation was performed Response to fluids: Non Fluid responsive hypotension and Vasopressors started 10/15/24 1151 Cosigner Signature (if applicable): cc: Dr. Lety Augustine MD; Dr. López Lilly MD ~* Signed [facility]07-11-2025 Consult note [facility] Medical Records Department [address] [place] [address] Consultation - Soft Sugar Supervisor 10/15/24 1000 MR#: [id number] Acct: [id number] Name: LUTHER CASTILLO II Rep #:[id number] : 1955 69 From: Carlos Melvin DO PCP: Dr. López Lilly MD Status :ADM IN Location: ICU ICU01-1 Assessment & Plan Assessment/Plan (1) Hypotension: PLAN: Plan RECOMMENDATIONS: 1. Complete fluid resuscitation as ordered. 2. Continue Levophed. Start scheduled midodrine. 3. Continue stress dose steroids. 4. Broad-spectrum antimicrobials, pending infectious workup. 5. DVT prophylaxis as ordered. IMPRESSIONS: 1. Undifferentiated shock Potential etiologies include sepsis versus hypovolemia versus relative adrenal insufficiency. PE seems unlikely, given that the patient is not hypoxemic. Thepatient did receive IV fluid resuscitationin the emergency department. He was ultimately placed on vasopressor support. The patient did confirm that his blood pressures are typically low at baseline. He is mentating appropriately with a normal lactate. Therefore, recommend titrating Levophed to maintain a systolic pressure at or above 90 mmHg. The patient will be continued on empiricbroad- spectrum antimicrobials. However, no definitive source of infection has yet to be identified. Lastly, given that the patient is on corticosteroids, stress dose steroids will be initiated. Cosyntropin stimulation test is pending. 2. History of stage IV prostate CA on therapy through [facility] oncology/chronic anemia and thrombocytopenia/BPH Complicates care, management, recovery and prognosis. Continue home medicationsas indicated. TIME: 35 minutes of critical care time, independent of procedures, was spent addressing the patient's undifferentiated shock, review of all data and collaboration with care team. HPI Consult Data Date of Consult: 10/15/24 HPI Narrative Reason for Consultation: Hypotension HPI Narrative: The patient is a 69-year-old male, with a history as outlined below, who presented to the emergencydepartment on October 15 with generalized malaise, fatigue and subjective fever. The patient was recently [facility] to the hospital[facility] through with dizziness and hypotension. Workup during that hospitalization revealed findings concerning for possible acalculous cholecystitis. The patient was noted to be bacteremic with blood cultures positive for Streptococcus intermedius and haemophilus parainfluenza. The patient was treated with antimicrobial therapy and was placed on steroids as there was concern that the hormonal therapy that he was receiving for his prostate cancer could lead to glucocorticoid deficiency. The patient is currently being followed by Dr. Villarreal of oncology at [facility] dueto a history of stage IV prostate cancer currently on immunotherapy. On presentation to the emergency department, the patient was documented to have a fever of 100.2 ?F. He was tachycardic and tachypneic with an initial blood pressure of 125/71 mmHg. However, during his emergency department course, the patient became progressively hypotensive. He did receive IV fluid resuscitationand was ultimately placed on Levophed. White blood cell count was noted to be normal.Hemoglobin was stable. Platelet count was stable at 129,000, in the setting of a history of thrombocytopenia. Chemistry profile was unremarkable. Creatinine was within normal limits. Lactate was normal. Total bilirubin was increased at 1.46. AST and ALT were normal. Lipase was normal. Procalcitoninwas only mildly elevated at 0.87. Urine analysis was unremarkable. CT abdomen/pelvis demonstrated no significant abnormalities. Chest x-ray demonstrated no acute cardiopulmonary process. Abdominal ultrasound was unremarkable. The patient did receive antimicrobial therapy and was subsequently admitted to the medical intensive care unit for further management. [facility] Medical History Open wound of scalp with complication Wound dehiscence Surgical wound breakdown Cancer Dizziness Home Medications ?Medication ?Instructions ?Recorded ?Last Taken ?Type abiraterone 250 mg tablet 1,000 mg PO DAILY prostate c ancer 12/11/23 09/17/24 History atorvastatin 20 mg tablet 20 mg PO QHS cholesterol 08/2809/17/24 History prednisone 5 mg tablet 10 mg PO BID prostate 09/17/24 History tamsulosin 0.4 mg capsule 0.4 mg PO DAILY prostate 08/2809/17/24 History leuprolide acetate (6 month) 45 mg 45 mg subcut .COMPL EX 02/05/24 09/15/24 History (6 month) subcutaneous syringe (Eligard) calcium 600 mg (as 2 tab PO DAILY calcium 10/15 Unknown History carbonate)-vitamin D3 5 mcg (200 unit) tablet (Calcium 600 + D(3)) cimetidine 200 mg tablet 200 mg PO DAILY 10/15/24 Unk nown History (Heartburn Relief (cimetidine)) darbepoetin dagmar in polysorbat 25 25 mcg subcut QMONTH 10/15/24 Unknown History mcg/mL in polysorbate injection (Aranesp) Allergy/AdvReac Type Severity Reaction Status Date / Time No Known Allergies Allergy Verified 10/15/24 04:35 Family History Other Cancer Surgical History 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 Status post Mohs surgery Social History Smoking Status: Never smoker ROS ROS Narrative 10 systems were reviewed with pertinent positives as noted in the HPI above. Physical Exam Const alert, oriented x3 and no apparent distress Constitutional Narrative: is present at the bedside. General Appearance: Negative for ill appearing HEENT normocephalic, head/scalp atraumatic and moist oral mucous membranes Eyes PERRL, EOMs intact bilaterally and conjunctivae normal Neck supple General: trachea midline Chest inspection of chest normal Resp normal respiratory effort Auscultation: Negative for rales, rhonchi or wheezes Cardio regular rate and regular rhythm GI normal to inspection, nondistended, normoactive bowel sounds and non-tender Extremity no clubbing, cyanosis or edema Skin no rashes or lesions noted Neuro CN's II-XII intact bilaterally, moves all extremities and no focal motor deficits Psych cooperative and affect normal Lab / Micro Data 10/15/24 04:47 10/15/24 04:47 Labs: Laboratory Results - last 24 hr 10/15/24 04:47: WBC 8.2, RBC 3.91 L, Hgb 9.8 L, Hct 32.2 L, MCV 82.4, MCH 25.1 L, MCHC 30.4 L, RDW Std Deviation 61.2 H, RDW Coeff of Lydia 20.5 H, Plt Count 129 L, MPV 9.0, Immature Gran % (Auto) 0.400, Neut % (Auto) 84.8 H, Lymph % (Auto) 10.6 L, Fillmore % (Auto) 3.5, Eos % (Auto) 0.6, Baso % (Auto) 0.1, Absolute Neuts (auto) 6.9, Absolute Lymphs (auto) 0.87, Nucleated RBC % 0, Anisocytosis 1+, Sodium 137, Potassium 4.0, Chloride 101, Carbon Dioxide 24.4, Anion Gap 11, BUN 20 H, Creatinine 0.99, Estim Creat Clear Calc 61.47, Est GFR (MDRD) Non-Af 81, BUN/Creatinine Ratio 20.6 H, Glucose 103 H, Lactic Acid 1.8, Calcium 9.1, Total Bilirubin 1.46 H, Direct Bilirubin 0.68 H, AST 23, ALT 19, Alkaline Phosphatase 129, Total Protein 7.1, Albumin 3.9, Globulin 3.2, Lipase 22, Procalcitonin 0.87H 10/15/24 05:10: Urine Color Yellow, Urine Clarity Clear, Urine pH 7.0, Ur Specific Spencer 1.010, Urine Protein Negative, Urine Glucose (UA) Normal, UrineKetones Negative, Urine Occult Blood Negative, Urine Nitrite Negative, Urine Bilirubin Negative, Urine Urobilinogen Normal, Ur Leukocyte Esterase Negative, Urine RBC 0 SEEN, Urine WBC 0 SEEN, Ur Squamous Epith Cells 0 SEEN, Urine Bacteria RARE, Urine Mucus 0 SEEN Imaging Radiology Impression Abdomen/Pelvis CT 10/15/24 05:30 IMPRESSION: Resolution of the bilateral pleural effusion as well as the related compression atelectasis. Resolution of the gall bladder mural edema. Resolution of the mild ascites. Stable rest of the study findings as detailed Reading Location: [place] [address] Chest X-Ray 10/15/24 05:32 IMPRESSION: Bilateral basal faint infiltrates.Minimal bilateral pleural effusion. Right 8th rib sclerotic lesion, Bones scan is advised. Reading [facility] Abdomen Ultrasound 10/15/24 06:36 IMPRESSION: No definite acute abnormalities. Reading [facility] Charges/Coding Procedures Hospitalists Procedures: 99610 Critical Care 1st Hr 10/15/24 1100 Cosigner Signature (if applicable): CC: Dr. López Lilly MD~ Signed [facility]07-11-2025 Consult note [facility] Medical Records Department [address] [place] [address] Consultation - Infectious Dx 10/15/24 1044 MR#: [id number] Acct: [id number] Name: LUTHER CASTILLO II Rep #:[id number] : 1955 69 From: Rocco tinajero MD PCP: Dr. López Lilly MD Status :ADM IN Location: ICU ICU01-1 Assessment & Plan Assessment/Plan (1) Prostate cancer: (2) Septic shock: PLAN: Admit 3 weeks ago with suspected cholecystitis and strep and haemophilus bacteremia. LFTs improved, CT and US done here with no sign of infection. No focal symptoms other than back pain, but notenderness on exam. UAgs neg. Contempiric vanc/zosyn. Will follow, thank you, d/w Dr. Augustine and Dr. Melvin HPI Consult Data Date of Consult: 10/15/24 HPI Narrative Reason for Consultation: septic shock HPI Narrative: LUTHER CASTILLO, is a 69 M with metastatic prostate cancer, on immunotherapy, recent discharge 09/22 for suspected cholecystitis with bacteremia (+) strep intermedius and Haeomphilus. Sent home on po cefdinir x8 days. Reports completing treatment, feeling fine since then, until past few days some low backpain, then yesterday new fever, chills, sweats, weakness. Came to ED, admitted to icu with septic shock on vanc/zosyn. Feeling ok, no dysuria, no cough, no abd pain, no n/v/d, no rash, no body aches. No sick contacts. Full ROS performed and neg except as noted above. Some mild headache s/p Mohs toR scalp. PFSH Medical History Open wound of scalp with complication Wound dehiscence Surgical wound breakdown Cancer Dizziness Home Medications ?Medication ?Instructions ?Recorded ?Last Taken ?Type abiraterone 250 mg tablet 1,000 mg PO DAILY prostate c ancer 12/11/23 09/17/24 History atorvastatin 20 mg tablet 20 mg PO QHS cholesterol 08/2809/17/24 History prednisone 5 mg tablet 5 mg PO BID prostate 4 09/17/24 History tamsulosin 0.4 mg capsule 0.4 mg PO DAILY prostate 08/2809/17/24 History leuprolide acetate (6 month) 45 mg 45 mg subcut .COMPL EX 02/05/24 09/15/24 History (6 month) subcutaneous syringe ([email or web address]) calcium 600 mg (as 2 tab PO DAILY calcium 10/15 Unknown History carbonate)-vitamin D3 5 mcg (200 unit) tablet (Calcium 600 + D(3)) cimetidine 200 mg tablet 200 mg PO DAILY 10/15/24 Unk nown History (Heartburn Relief (cimetidine)) darbepoetin dagmar in polysorbat 25 25 mcg subcut QMONTH 10/15/24 Unknown History mcg/mL in polysorbate injection (Aranesp) Allergy/AdvReac Type Severity Reaction Status Date / Time No Known Allergies Allergy Verified 10/15/24 04:35 Family History Other Cancer Surgical History 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 Status post Mohs surgery Social History Smoking Status: Never smoker Physical Exam Const alert, oriented x3 and no apparent distress General Appearance: cooperative HEENT normocephalic and head/scalp atraumatic HEENT Narrative: Bandage on R scalp, no redness Eyes PERRL and EOMs intact bilaterally Neck supple and No nodes Resp normal air movement and clear to auscultation bilaterally Cardio regular rate and regular rhythm GI soft to palpation, non-tender and non-distended GI Narrative: No flank or lumbar tenderness Extremity General Extremity: Negative for edema Skin no rashes or lesions noted Neuro CN's II-XII intact bilaterally Lab / Micro Data Attestation: I reviewed the patient's lab results. 10/15/24 04:47 10/15/24 04:47 Labs: Laboratory Results - last 24 hr 10/15/24 04:47: WBC 8.2, RBC 3.91 L, Hgb 9.8 L, Hct 32.2 L, MCV 82.4, MCH 25.1 L, MCHC 30.4 L, RDW Std Deviation 61.2 H, RDW Coeff of Lydia 20.5 H, Plt Count 129 L, MPV 9.0, Immature Gran % (Auto) 0.400, Neut % (Auto) 84.8 H, Lymph % (Auto) 10.6 L, Fillmore % (Auto) 3.5, Eos % (Auto) 0.6, Baso % (Auto) 0.1, Absolute Neuts (auto) 6.9, Absolute Lymphs (auto) 0.87, Nucleated RBC % 0, Anisocytosis 1+, Sodium 137, Potassium 4.0, Chloride 101, Carbon Dioxide 24.4, Anion Gap 11, BUN 20 H, Creatinine 0.99, Estim Creat Clear Calc 61.47, Est GFR (MDRD) Non-Af 81, BUN/Creatinine Ratio 20.6 H, Glucose 103 H, Lactic Acid 1.8, Calcium 9.1, Total Bilirubin 1.46 H, Direct Bilirubin 0.68 H, AST 23, ALT 19, Alkaline Phosphatase 129, Total Protein 7.1, Albumin 3.9, Globulin 3.2, Lipase 22, Procalcitonin 0.87H 10/15/24 05:10: Urine Color Yellow, Urine Clarity Clear, Urine pH 7.0, Ur Specific Spencer 1.010, Urine Protein Negative, Urine Glucose (UA) Normal, UrineKetones Negative, Urine Occult Blood Negative, Urine Nitrite Negative, Urine Bilirubin Negative, Urine Urobilinogen Normal, Ur Leukocyte Esterase Negative, Urine RBC 0 SEEN, Urine WBC 0 SEEN, Ur Squamous Epith Cells 0 SEEN, Urine Bacteria RARE, Urine Mucus 0 SEEN Micro: Microbiology 10/15/24 09:45 Urine Catheter - Catheter Legionella Antigen - Final 10/15/24 09:45 Urine Catheter - Catheter Streptococcus pneumoniae Antigen (M- Final Imaging Radiology Impression Abdomen/Pelvis CT 10/15/24 05:30 IMPRESSION: Resolution of the bilateral pleural effusion as well as the related compression atelectasis. Resolution of the gall bladder mural edema. Resolution of the mild ascites. Stable rest of the study findings as detailed Reading Location: [place] [address] Chest X-Ray 10/15/24 05:32 IMPRESSION: Bilateral basal faint infiltrates.Minimal bilateral pleural effusion. Right 8th rib sclerotic lesion, Bones scan is advised. Reading Location: [place] [address] Abdomen Ultrasound 10/15/24 06:36 IMPRESSION: No definite acute abnormalities. Reading Location: [place] [address] 10/15/24 1052 Cosigner Signature (if applicable): CC: Dr. López Lilly MD~ Signed [facility]07-11-2025 Discharge summary Author [facility] Note Date/Time October 15, 2024 8:36 am [facility] Medical Records Department [address] [place] [address] Emergency Department Summary 10/15/24 MR#: [id number] Acct: [id number] Name: LUTHER CASTILLO II Rep #:[id number] : 1955 69 From: Sukhwinder Sierra DO PCP: Dr. López Lilly MD Status :REG ER Location: ED HPI History of Present Illness Chief Complaint: Weakness Informant: patient and spouse/S.O. Narrative Narrative: Patient is a 69-year-old male with past medical history of prostate cancer. He was admitted roughly 1 month ago secondary to concern for sepsis from acute acalculous cholecystitis. Patient and state that there was concern he would need to have his gallbladder removed after the potential infection resolved. They state that he was discharged from the hospital and took his antibiotics as directed. However he has not had his gallbladder removed yet. He states starting last night approximately last 12 hours she has had increased fatigue and weakness and was noted to have a low- grade fever at home. He statesthat there are no real associated symptoms such as cough congestion dysuria vomiting or diarrhea. He states there is no true belly pain at this time either. states she believes he is developing jaundice as he did at his previous admission and with concern he is developing a repeat infection was brought in for evaluation [facility] Medical History Open wound of scalp with complication Wound dehiscence Surgical wound breakdown Cancer Dizziness Home Medications ?Medication ?Instructions ?Recorded ?Last Taken ?Type abiraterone 250 mg tablet 1,000 mg PO DAILY prostate c ancer 12/11/23 09/17/24 History atorvastatin 20 mg tablet 20 mg PO QHS cholesterol 08/2809/17/24 History prednisone 5 mg tablet 5 mg PO BID prostate 4 09/17/24 History tamsulosin 0.4 mg capsule 0.4 mg PO DAILY prostate 08/2809/17/24 History leuprolide acetate (6 month) 45 mg 45 mg subcut .COMPL EX 02/05/24 09/15/24 History (6 month) subcutaneous syringe (Eligard) darbepoetin dagmar in polysorbat See Rx Instructions IV .COMPLEX 09/18/24 Unknown History cimetidine 200 mg tablet 200 mg PO DAILY 10/15/24 Unk nown History (Heartburn Relief (cimetidine)) darbepoetin dagmar in polysorbat 25 25 mcg subcut QMONTH 10/15/24 Unknown History mcg/mL in polysorbate injection (Aranesp) Allergy/AdvReac Type Severity Reaction Status Date / Time No Known Allergies Allergy Verified 10/15/24 04:35 Family History (Updated 09/18/24 @ 16:[address] 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 Status post Mohs surgery Social History Smoking Status: Never smoker ROS ROS ED Constitutional Constitutional ED: Reports chills and fever(s) Eyes Eyes: Denies change in vision ENT ENT ED: Denies sore throat Cardiovascular Cardiovascular: Denies chest pain Respiratory/Chest Respiratory/Chest: Denies cough or dyspnea Gastrointestinal Gastrointestinal: Denies abdominal pain, constipation, diarrhea, nausea or vomiting Genitourinary Genitourinary ED: Denies dysuria Musculoskeletal Musculoskeletal: Denies myalgias Integumentary Denies rash Neurologic Neurologic: Reports weakness; Denies headache(s) Hematologic/Lymphatic Hematologic/Lymphatic: Denies easy bleeding or easy bruising EXAM Physical Exam Const Vital Signs: 10/15/24 04:36 10/15/24 05:37 10/15/24 06:00 Temperature 100.2 F H 99.9 F H 99.9 F H Temperature Source Oral Oral Oral Pulse Rate 114 H 108 H 106 H Respiratory Rate 22 H 25 H 27 H Blood Pressure 125/71 H 94/52 L 93/51 L Blood Pressure Mean 89 66 65 Blood Pressure Position Blood Pressure Location Pulse Ox 96 96 97 Oxygen Delivery Method Room Air Room Air Room Air 10/15/24 06:09 10/15/24 06:16 10/15/24 06:24 Temperature 100.0 F H Temperature Source Oral Pulse Rate 107 H 104 H 103 H Respiratory Rate 27 H 26 H 22 H Blood Pressure 83/52 L 83/52 L Blood Pressure Mean 61 62 Blood Pressure Position Blood Pressure Location Pulse Ox 96 95 93 Oxygen Delivery Method Room Air 10/15/24 06:25 10/15/24 06:30 10/15/24 06:45 Temperature Temperature Source Pulse Rate 98 Respiratory Rate 21 H Blood Pressure 83/52 L 83/50 L 95/52 L Blood Pressure Mean 61 60 66 Blood Pressure Position Blood Pressure Location Pulse Ox 94 93 Oxygen Delivery Method Room Air 10/15/24 08:00 10/15/24 08:23 Temperature 98.6 F Temperature Source Oral Pulse Rate 93 92 Respiratory Rate 18 Blood Pressure 78/46 L 79/43 L Blood Pressure Mean 56 55 Blood Pressure Position Supine Blood Pressure Location Right Arm Pulse Ox 96 Oxygen Delivery Method Room Air Positive well nourished and well developed General Appearance ED: well developed; Negative for pallor HEENT Reports dry mucous membranes HEENT Narrative: Normocephalic atraumatic No tongue or lip swelling no oral lesions no airway edema or compromise No secondary findings in the posterior pharynx to suggest Mucous membranes are mildly dry and tacky Mouth ED: Yes dry mucous membranes Mouth: dry mucous membranes Eyes PERRL and EOMs intact bilaterally Eyes Narrative: There is faint scleral icterus noted bilaterally General Eye ED: Yes scleral icterus Neck supple Neck Narrative: No nuchal rigidity or meningeal signs Chest Wall palpation of chest normal Resp normal respiratory effort and clear to auscultation bilaterally Resp Narrative: Breath sounds are diminished throughout with faint rhonchi noted bilateral lowerlobes However no signs of respiratory distress Cardio regular rhythm Rate: tachycardic and other Other Details: Tachycardic rate with regular rhythm Radial and carotid pulses are equal and symmetric GI normal to inspection, nondistended, normoactive bowel sounds, non-tender, non-distended and no masses GI Narrative: Abdomen is soft nontender nondistended with normal active bowel sounds No voluntary guarding or rigidity No pulsatile mass or fluid wave Negative Renee sign Auscultation: normoactive bowel sounds Palpation: soft Back/Spine no CVA tenderness Extremity normal to inspection Extremity Narrative: No asymmetric edema no pitting edema negative Homans' sign bilaterally Neuro oriented x3, CN's II-XII intact bilaterally and no sensory deficits noted Sensorium / Orientation: alert Motor Exam: strength 5/5 throughout Psych mental status grossly normal Skin no rashes or lesions noted and no wounds General Skin Exam: Negative for jaundice or pallor MDM MDM MDM Narrative Medical decision making narrative: Patient arrived to the ER with low-grade fever and was mildly tachycardic but otherwise blood pressure was normotensive. With his recent admission for acute acalculous cholecystitis and sepsis there is high likelihood that this is the cause once again. Therefore basic blood work was ordered with blood cultures and a CT scan was obtained to check for potential signs of infection. The patient's white count and neutrophil count are normal his lactic acid is also normal however his procalcitonin is elevated concerning or consistent with potential infection. Urine sample shows no sign of infection. His total bilirubin and direct bilirubin are elevated which could correlate with his mild scleral icterus and potential reinfection of the gallbladder. Chest x-ray officially question developing infiltrate but there is no pneumonia just atelectasis noted on the lower lobes of the CT scan. Also the patient does not have a cough or congestion or hypoxia going against this as the cause of his fever. Despite 3 L of IV fluid resuscitation and improvement of the patient's fever his blood pressure continued to drop and this was also confirmed manually. Other than the blood pressure dropping he is awake and alert and in no acute distress. Therefore the decision was made to start peripheral Levophed and not place a central line at this time. The case was discussed with the general surgeon on-call Dr. Villarreal. He reviewed today's images as well as his images from last month and agrees with radiology that the images are markedly improved today and secondary to that he does not feel that the gallbladder is the source of the patient's symptoms. He states that because of that he does not feel there is any intervention that he needs to provide at this time. However he states he is agreeable to potentially removing the gallbladder if thepatient's images and labs progressed to a similar appearance to last month. Thecase was then discussed with the hospitalist and she was informed of this conversation as well as the persistent hypotension despite fluid resuscitation and she agrees accept the patient to the ICU for continued care. History & Record Review Discussion w/independent historian: Patient and Significant other Lab Data Attestation: I reviewed the patient's lab results. Labs: Laboratory Results - last 24 hr 10/15/24 10/15/24 04:47 05:10 WBC 8.2 RBC 3.91 L Hgb 9.8 L Hct 32.2 L MCV 82.4 MCH 25.1 L MCHC 30.4 L RDW Std Deviation 61.2 H RDW Coeff of Lydia 20.5 H Plt Count 129 L MPV 9.0 Immature Gran % (Auto) 0.400 Neut % (Auto) 84.8 H Lymph % (Auto) 10.6 L Fillmore % (Auto) 3.5 Eos % (Auto) 0.6 Baso % (Auto) 0.1 Absolute Neuts (auto) 6.9 Absolute Lymphs (auto) 0.87 Nucleated RBC % 0 Anisocytosis 1+ Sodium 137 Potassium 4.0 Chloride 101 Carbon Dioxide 24.4 Anion Gap 11 BUN 20 H Creatinine 0.99 Estim Creat Clear Calc 61.47 Est GFR (MDRD) Non-Af 81 BUN/Creatinine Ratio 20.6 H Glucose 103 H Lactic Acid 1.8 Calcium 9.1 Total Bilirubin 1.46 H Direct Bilirubin 0.68 H AST 23 ALT 19 Alkaline Phosphatase 129 Total Protein 7.1 Albumin 3.9 Globulin 3.2 Lipase 22 Procalcitonin 0.87 H Urine Color Yellow Urine Clarity Clear Urine pH 7.0 Ur Specific Spencer 1.010 Urine Protein Negative Urine Glucose (UA) Normal Urine Ketones Negative Urine Occult Blood Negative Urine Nitrite Negative Urine Bilirubin Negative Urine Urobilinogen Normal Ur Leukocyte Esterase Negative Urine RBC 0 SEEN Urine WBC 0 SEEN Ur Squamous Epith Cells 0 SEEN Urine Bacteria RARE Urine Mucus 0 SEEN Radiography Diagnostic Testing: Clinical Impression(s) from Imaging Studies Abdomen/Pelvis CT 10/15/24 05:30 IMPRESSION: Resolution of the bilateral pleural effusion as well as the related compression atelectasis. Resolution of the gall bladder mural edema. Resolution of the mild ascites. Stable rest of the study findings as detailed Reading Location: [place] [address] Chest X-Ray 10/15/24 05:32 IMPRESSION: Bilateral basal faint infiltrates.Minimal bilateral pleural effusion. Right 8th rib sclerotic lesion, Bones scan is advised. Reading Location: [place] [address] Abdomen Ultrasound 10/15/24 06:36 IMPRESSION: No definite acute abnormalities. Reading Location: [place] [address] Chest x-ray as interpreted by the emergency medicine system reveals atelectasis in the bilateral bases without acute infiltrate Critical Care Time Critical Care Time: Yes Critical care time (excluding procedures): Discussing w/Patient &/or Family/CareGiver, Discussing w/Consultants and - (Please note critical care time of 37 minutes) Discharge Plan Triage Chief Complaint: Weakness ED Provider: Sukhwinder Sierra Dx/Rx/DC Orders Clinical Impression: Scleral icterus, Acute hypotension, Pyrexia, SIRS (systemic inflammatory response syndrome), Prostate cancer Prescriptions: No Action Eligard (6 month) 45 mg syringe 45 mg subcut .COMPLEX Rx Instructions: 45 mg subcutaneously EVERY 6 MONTHS; cimetidine [Heartburn Relief (cimetidine)] 200 mg tablet 200 mg PO DAILY Rx Instructions: administer with meals Aranesp (in polysorbate) 25 mcg/mL solution 25 mcg subcut QMONTH atorvastatin 20 mg tablet 20 mg PO [...] intravenously EVERY MONTH; Primary Care Provider: López Lilly Referrals: López Lilly MD [Primary Care Provider] - Print Language: Puerto Rican Disposition Disposition: Acute Care Hospital [facility] What to do if you have Problems For any increased pain, shortness of breath, bleeding, nausea or vomiting, chestpain, or any unexpected problems, contact your Primary Care Provider. Call [facility] ([phone]) or report to the closest Emergency Room. Call 911 if necessary. 10/15/24 0836 <Electronically signed by Sukhwinder Sierra DO> Cosigner Signature (if applicable): CC: Dr. López Lilly MD ~ Signed [facility] Work Phone: [phone] Discharge summary Author [facility] Note Date/Time October 15, 2024 8:36 am [facility] Medical Records Department [address] [place] [address] Emergency Department Summary 10/15/24 MR#: [id number] Acct: [id number] Name: LUTHER CASTILLO II Rep #:[id number] : 1955 69 From: Sukhwinder Sierra DO PCP: Dr. López Lilly MD Status :REG ER Location: ED HPI History of Present Illness Chief Complaint: Weakness Informant: patient and spouse/S.O. Narrative Narrative: Patient is a 69-year-old male with past medical history of prostate cancer. He was admitted roughly 1 month ago secondary to concern for sepsis from acute acalculous cholecystitis. Patient and state that there was concern he would need to have his gallbladder removed after the potential infection resolved. They state that he was discharged from the hospital and took his antibiotics as directed. However he has not had his gallbladder removed yet. He states starting last night approximately last 12 hours she has had increased fatigue and weakness and was noted to have a low- grade fever at home. He statesthat there are no real associated symptoms such as cough congestion dysuria vomiting or diarrhea. He states there is no true belly pain at this time either. states she believes he is developing jaundice as he did at his previous admission and with concern he is developing a repeat infection was brought in for evaluation [facility] Medical History Open wound of scalp with complication Wound dehiscence Surgical wound breakdown Cancer Dizziness Home Medications ?Medication ?Instructions ?Recorded ?Last Taken ?Type abiraterone 250 mg tablet 1,000 mg PO DAILY prostate c ancer 12/11/23 09/17/24 History atorvastatin 20 mg tablet 20 mg PO QHS cholesterol 08/2809/17/24 History prednisone 5 mg tablet 5 mg PO BID prostate 4 09/17/24 History tamsulosin 0.4 mg capsule 0.4 mg PO DAILY prostate 08/2809/17/24 History leuprolide acetate (6 month) 45 mg 45 mg subcut .COMPL EX 02/05/24 09/15/24 History (6 month) subcutaneous syringe (Eligard) darbepoetin dagmar in polysorbat See Rx Instructions IV .COMPLEX 09/18/24 Unknown History cimetidine 200 mg tablet 200 mg PO DAILY 10/15/24 Unk nown History (Heartburn Relief (cimetidine)) darbepoetin dagmar in polysorbat 25 25 mcg subcut QMONTH 10/15/24 Unknown History mcg/mL in polysorbate injection (Aranesp) Allergy/AdvReac Type Severity Reaction Status Date / Time No Known Allergies Allergy Verified 10/15/24 04:35 Family History (Updated 09/18/24 @ 16:[address] 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 Status post Mohs surgery Social History Smoking Status: Never smoker ROS ROS ED Constitutional Constitutional ED: Reports chills and fever(s) Eyes Eyes: Denies change in vision ENT ENT ED: Denies sore throat Cardiovascular Cardiovascular: Denies chest pain Respiratory/Chest Respiratory/Chest: Denies cough or dyspnea Gastrointestinal Gastrointestinal: Denies abdominal pain, constipation, diarrhea, nausea or vomiting Genitourinary Genitourinary ED: Denies dysuria Musculoskeletal Musculoskeletal: Denies myalgias Integumentary Denies rash Neurologic Neurologic: Reports weakness; Denies headache(s) Hematologic/Lymphatic Hematologic/Lymphatic: Denies easy bleeding or easy bruising EXAM Physical Exam Const Vital Signs: 10/15/24 04:36 10/15/24 05:37 10/15/24 06:00 Temperature 100.2 F H 99.9 F H 99.9 F H Temperature Source Oral Oral Oral Pulse Rate 114 H 108 H 106 H Respiratory Rate 22 H 25 H 27 H Blood Pressure 125/71 H 94/52 L 93/51 L Blood Pressure Mean 89 66 65 Blood Pressure Position Blood Pressure Location Pulse Ox 96 96 97 Oxygen Delivery Method Room Air Room Air Room Air 10/15/24 06:09 10/15/24 06:16 10/15/24 06:24 Temperature 100.0 F H Temperature Source Oral Pulse Rate 107 H 104 H 103 H Respiratory Rate 27 H 26 H 22 H Blood Pressure 83/52 L 83/52 L Blood Pressure Mean 61 62 Blood Pressure Position Blood Pressure Location Pulse Ox 96 95 93 Oxygen Delivery Method Room Air 10/15/24 06:25 10/15/24 06:30 10/15/24 06:45 Temperature Temperature Source Pulse Rate 98 Respiratory Rate 21 H Blood Pressure 83/52 L 83/50 L 95/52 L Blood Pressure Mean 61 60 66 Blood Pressure Position Blood Pressure Location Pulse Ox 94 93 Oxygen Delivery Method Room Air 10/15/24 08:00 10/15/24 08:23 Temperature 98.6 F Temperature Source Oral Pulse Rate 93 92 Respiratory Rate 18 Blood Pressure 78/46 L 79/43 L Blood Pressure Mean 56 55 Blood Pressure Position Supine Blood Pressure Location Right Arm Pulse Ox 96 Oxygen Delivery Method Room Air Positive well nourished and well developed General Appearance ED: well developed; Negative for pallor HEENT Reports dry mucous membranes HEENT Narrative: Normocephalic atraumatic No tongue or lip swelling no oral lesions no airway edema or compromise No secondary findings in the posterior pharynx to suggest Mucous membranes are mildly dry and tacky Mouth ED: Yes dry mucous membranes Mouth: dry mucous membranes Eyes PERRL and EOMs intact bilaterally Eyes Narrative: There is faint scleral icterus noted bilaterally General Eye ED: Yes scleral icterus Neck supple Neck Narrative: No nuchal rigidity or meningeal signs Chest Wall palpation of chest normal Resp normal respiratory effort and clear to auscultation bilaterally Resp Narrative: Breath sounds are diminished throughout with faint rhonchi noted bilateral lowerlobes However no signs of respiratory distress Cardio regular rhythm Rate: tachycardic and other Other Details: Tachycardic rate with regular rhythm Radial and carotid pulses are equal and symmetric GI normal to inspection, nondistended, normoactive bowel sounds, non-tender, non-distended and no masses GI Narrative: Abdomen is soft nontender nondistended with normal active bowel sounds No voluntary guarding or rigidity No pulsatile mass or fluid wave Negative Renee sign Auscultation: normoactive bowel sounds Palpation: soft Back/Spine no CVA tenderness Extremity normal to inspection Extremity Narrative: No asymmetric edema no pitting edema negative Homans' sign bilaterally Neuro oriented x3, CN's II-XII intact bilaterally and no sensory deficits noted Sensorium / Orientation: alert Motor Exam: strength 5/5 throughout Psych mental status grossly normal Skin no rashes or lesions noted and no wounds General Skin Exam: Negative for jaundice or pallor MDM MDM MDM Narrative Medical decision making narrative: Patient arrived to the ER with low-grade fever and was mildly tachycardic but otherwise blood pressure was normotensive. With his recent admission for acute acalculous cholecystitis and sepsis there is high likelihood that this is the cause once again. Therefore basic blood work was ordered with blood cultures and a CT scan was obtained to check for potential signs of infection. The patient's white count and neutrophil count are normal his lactic acid is also normal however his procalcitonin is elevated concerning or consistent with potential infection. Urine sample shows no sign of infection. His total bilirubin and direct bilirubin are elevated which could correlate with his mild scleral icterus and potential reinfection of the gallbladder. Chest x-ray officially question developing infiltrate but there is no pneumonia just atelectasis noted on the lower lobes of the CT scan. Also the patient does not have a cough or congestion or hypoxia going against this as the cause of his fever. Despite 3 L of IV fluid resuscitation and improvement of the patient's fever his blood pressure continued to drop and this was also confirmed manually. Other than the blood pressure dropping he is awake and alert and in no acute distress. Therefore the decision was made to start peripheral Levophed and not place a central line at this time. The case was discussed with the general surgeon on-call Dr. Villarreal. He reviewed today's images as well as his images from last month and agrees with radiology that the images are markedly improved today and secondary to that he does not feel that the gallbladder is the source of the patient's symptoms. He states that because of that he does not feel there is any intervention that he needs to provide at this time. However he states he is agreeable to potentially removing the gallbladder if thepatient's images and labs progressed to a similar appearance to last month. Thecase was then discussed with the hospitalist and she was informed of this conversation as well as the persistent hypotension despite fluid resuscitation and she agrees accept the patient to the ICU for continued care. History & Record Review Discussion w/independent historian: Patient and Significant other Lab Data Attestation: I reviewed the patient's lab results. Labs: Laboratory Results - last 24 hr 10/15/24 10/15/24 04:47 05:10 WBC 8.2 RBC 3.91 L Hgb 9.8 L Hct 32.2 L MCV 82.4 MCH 25.1 L MCHC 30.4 L RDW Std Deviation 61.2 H RDW Coeff of Lydia 20.5 H Plt Count 129 L MPV 9.0 Immature Gran % (Auto) 0.400 Neut % (Auto) 84.8 H Lymph % (Auto) 10.6 L Fillmore % (Auto) 3.5 Eos % (Auto) 0.6 Baso % (Auto) 0.1 Absolute Neuts (auto) 6.9 Absolute Lymphs (auto) 0.87 Nucleated RBC % 0 Anisocytosis 1+ Sodium 137 Potassium 4.0 Chloride 101 Carbon Dioxide 24.4 Anion Gap 11 BUN 20 H Creatinine 0.99 Estim Creat Clear Calc 61.47 Est GFR (MDRD) Non-Af 81 BUN/Creatinine Ratio 20.6 H Glucose 103 H Lactic Acid 1.8 Calcium 9.1 Total Bilirubin 1.46 H Direct Bilirubin 0.68 H AST 23 ALT 19 Alkaline Phosphatase 129 Total Protein 7.1 Albumin 3.9 Globulin 3.2 Lipase 22 Procalcitonin 0.87 H Urine Color Yellow Urine Clarity Clear Urine pH 7.0 Ur Specific Spencer 1.010 Urine Protein Negative Urine Glucose (UA) Normal Urine Ketones Negative Urine Occult Blood Negative Urine Nitrite Negative Urine Bilirubin Negative Urine Urobilinogen Normal Ur Leukocyte Esterase Negative Urine RBC 0 SEEN Urine WBC 0 SEEN Ur Squamous Epith Cells 0 SEEN Urine Bacteria RARE Urine Mucus 0 SEEN Radiography Diagnostic Testing: Clinical Impression(s) from Imaging Studies Abdomen/Pelvis CT 10/15/24 05:30 IMPRESSION: Resolution of the bilateral pleural effusion as well as the related compression atelectasis. Resolution of the gall bladder mural edema. Resolution of the mild ascites. Stable rest of the study findings as detailed Reading Location: [place] [address] Chest X-Ray 10/15/24 05:32 IMPRESSION: Bilateral basal faint infiltrates.Minimal bilateral pleural effusion. Right 8th rib sclerotic lesion, Bones scan is advised. Reading Location: [place] [address] Abdomen Ultrasound 10/15/24 06:36 IMPRESSION: No definite acute abnormalities. Reading Location: [place] [address] Chest x-ray as interpreted by the emergency medicine system reveals atelectasis in the bilateral bases without acute infiltrate Critical Care Time Critical Care Time: Yes Critical care time (excluding procedures): Discussing w/Patient &/or Family/CareGiver, Discussing w/Consultants and - (Please note critical care time of 37 minutes) Discharge Plan Triage Chief Complaint: Weakness ED Provider: Sukhwinder Sierra Dx/Rx/DC Orders Clinical Impression: Scleral icterus, Acute hypotension, Pyrexia, SIRS (systemic inflammatory response syndrome), Prostate cancer Prescriptions: No Action Eligard (6 month) 45 mg syringe 45 mg subcut .COMPLEX Rx Instructions: 45 mg subcutaneously EVERY 6 MONTHS; cimetidine [Heartburn Relief (cimetidine)] 200 mg tablet 200 mg PO DAILY Rx Instructions: administer with meals Aranesp (in polysorbate) 25 mcg/mL solution 25 mcg subcut QMONTH atorvastatin 20 mg tablet 20 mg PO [...] intravenously EVERY MONTH; Primary Care Provider: López Lilly Referrals: López Lilly MD [Primary Care Provider] - Print Language: [place] Rican Disposition Disposition: Acute Care Hospital [facility] What to do if you have Problems For any increased pain, shortness of breath, bleeding, nausea or vomiting, chestpain, or any unexpected problems, contact your Primary Care Provider. Call [facility] ([phone]) or report to the closest Emergency Room. Call 911 if necessary. 10/15/24 0836 <Electronically signed by Sukhwinder Sierra DO> Cosigner Signature (if applicable): CC: Dr. López Lilly MD ~ Signed [facility] Work Phone: [phone] Discharge summary [facility] Medical Records Department [address] [place] [id number] Emergency Department Summary 10/15/24 MR#: [id number] Acct: [id number] Name: LUTHER CASTILLO II Rep #:[id number] : 1955 69 From: Sukhwinder Sierra DO PCP: Dr. López Lilly MD Status :REG ER Location: ED HPI History of Present Illness Chief Complaint: Weakness Informant: patient and spouse/S.O. Narrative Narrative: Patient is a 69-year-old male with past medical history of prostate cancer. He was admitted roughly1 month ago secondary to concern for sepsis from acute acalculous cholecystitis. Patient and state that there was concern he would need to have his gallbladder removed after the potential infection resolved. They state that he was discharged from the hospital and took his antibiotics as directed. However he has not had his gallbladder removed yet. He states starting last night approximately last 12 hours she has had increased fatigue and weakness and was noted to have a low-grade fever at home. He statesthat there are no real associated symptoms such as cough congestion dysuria vomiting or diarrhea. He states there is no true belly pain at this time either. states she believes he is developing jaundice as he did at his previous admission and with concern he is developing a repeat infection was brought in for evaluation [facility] Medical History Open wound of scalp with complication Wound dehiscence Surgical wound breakdown Cancer Dizziness Home Medications ?Medication ?Instructions ?Recorded ?Last Taken ?Type abiraterone 250 mg tablet 1,000 mg PO DAILY prostate c ancer 12/11/23 09/17/24 History atorvastatin 20 mg tablet 20 mg PO QHS cholesterol 08/2809/17/24 History prednisone 5 mg tablet 5 mg PO BID prostate 4 09/17/24 History tamsulosin 0.4 mg capsule 0.4 mg PO DAILY prostate 08/2809/17/24 History leuprolide acetate (6 month) 45 mg 45 mg subcut .COMPL EX 02/05/24 09/15/24 History (6 month) subcutaneous syringe (Eligard) darbepoetin dagmar in polysorbat See Rx Instructions IV .COMPLEX 09/18/24 Unknown History cimetidine 200 mg tablet 200 mg PO DAILY 10/15/24 Unk nown History (Heartburn Relief (cimetidine)) darbepoetin dagmar in polysorbat 25 25 mcg subcut QMONTH 10/15/24 Unknown History mcg/mL in polysorbate injection (Aranesp) Allergy/AdvReac Type Severity Reaction Status Date / Time No Known Allergies Allergy Verified 10/15/24 04:35 Family History (Updated 09/18/24 @ 16:[address] 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 Status post Mohs surgery Social History Smoking Status: Never smoker ROS ROS ED Constitutional Constitutional ED: Reports chills and fever(s) Eyes Eyes: Denies change in vision ENT ENT ED: Denies sore throat Cardiovascular Cardiovascular: Denies chest pain Respiratory/Chest Respiratory/Chest: Denies cough or dyspnea Gastrointestinal Gastrointestinal: Denies abdominal pain, constipation, diarrhea, nausea or vomiting Genitourinary Genitourinary ED: Denies dysuria Musculoskeletal Musculoskeletal: Denies myalgias Integumentary Denies rash Neurologic Neurologic: Reports weakness; Denies headache(s) Hematologic/Lymphatic Hematologic/Lymphatic: Denies easy bleeding or easy bruising EXAM Physical Exam Const Vital Signs: 10/15/24 04:36 10/15/24 05:37 10/15/24 06:00 Temperature 100.2 F H 99.9 F H 99.9 F H Temperature Source Oral Oral Oral Pulse Rate 114 H 108 H 106 H Respiratory Rate 22 H 25 H 27 H Blood Pressure 125/71 H 94/52 L 93/51 L Blood Pressure Mean 89 66 65 Blood Pressure Position Blood Pressure Location Pulse Ox 96 96 97 Oxygen Delivery Method Room Air Room Air Room Air 10/15/24 06:09 10/15/24 06:16 10/15/24 06:24 Temperature 100.0 F H Temperature Source Oral Pulse Rate 107 H 104 H 103 H Respiratory Rate 27 H 26 H 22 H Blood Pressure 83/52 L 83/52 L Blood Pressure Mean 61 62 Blood Pressure Position Blood Pressure Location Pulse Ox 96 95 93 Oxygen Delivery Method Room Air 10/15/24 06:25 10/15/24 06:30 10/15/24 06:45 Temperature Temperature Source Pulse Rate 98 Respiratory Rate 21 H Blood Pressure 83/52 L 83/50 L 95/52 L Blood Pressure Mean 61 60 66 Blood Pressure Position Blood Pressure Location Pulse Ox 94 93 Oxygen Delivery Method Room Air 10/15/24 08:00 10/15/24 08:23 Temperature 98.6 F Temperature Source Oral Pulse Rate 93 92 Respiratory Rate 18 Blood Pressure 78/46 L 79/43 L Blood Pressure Mean 56 55 Blood Pressure Position Supine Blood Pressure Location Right Arm Pulse Ox 96 Oxygen Delivery Method Room Air Positive well nourished and well developed General Appearance ED: well developed; Negative for pallor HEENT Reports dry mucous membranes HEENT Narrative: Normocephalic atraumatic No tongue or lip swelling no oral lesions no airway edema or compromise No secondary findings in the posterior pharynx to suggest Mucous membranes are mildly dry and tacky Mouth ED: Yes dry mucous membranes Mouth: dry mucous membranes Eyes PERRL and EOMs intact bilaterally Eyes Narrative: There is faint scleral icterus noted bilaterally General Eye ED: Yes scleral icterus Neck supple Neck Narrative: No nuchal rigidity or meningeal signs Chest Wall palpation of chest normal Resp normal respiratory effort and clear to auscultation bilaterally Resp Narrative: Breath sounds are diminished throughout with faint rhonchi noted bilateral lowerlobes However no signs of respiratory distress Cardio regular rhythm Rate: tachycardic and other Other Details: Tachycardic rate with regular rhythm Radial and carotid pulses are equal and symmetric GI normal to inspection, nondistended, normoactive bowel sounds, non-tender, non- distended and no masses GI Narrative: Abdomen is soft nontender nondistended with normal active bowel sounds No voluntary guarding or rigidity No pulsatile mass or fluid wave Negative Renee sign Auscultation: normoactive bowel sounds Palpation: soft Back/Spine no CVA tenderness Extremity normal to inspection Extremity Narrative: No asymmetric edema no pitting edema negative Homans' sign bilaterally Neuro oriented x3, CN's II-XII intact bilaterally and no sensory deficits noted Sensorium / Orientation: alert Motor Exam: strength 5/5 throughout Psych mental status grossly normal Skin no rashes or lesions noted and no wounds General Skin Exam: Negative for jaundice or pallor MDM MDM MDM Narrative Medical decision making narrative: Patient arrived to the ER with low-grade fever and was mildly tachycardic but otherwise blood pressure was normotensive. With his recent admission for acute acalculous cholecystitis and sepsis there is high likelihood that this is the cause once again. Therefore basic blood work was ordered with blood cultures and a CT scan was obtained to check for potential signs of infection. The patient's white count and neutrophil count are normal his lactic acid is also normal however his procalcitonin iselevated concerning or consistent with potential infection. Urine sample shows no sign of infection. His total bilirubin and direct bilirubin are elevated which could correlate with his mild scleral i cterus and potential reinfection of the gallbladder. Chest x-ray officially question developing infiltrate but there is no pneumonia just atelectasis noted on the lower lobes of the CT scan. Also thepatient does not have a cough or congestion or hypoxia going against this as the cause of his fever. Despite 3 L of IV fluid resuscitation and improvement of the patient's fever his blood pressure continued to drop and this was also confirmed manually. Other than the blood pressure dropping he is awake and alert and in no acute distress. Therefore the decision was made to start peripheral Levophed and not place a central line at this time. The case was discussed with the general surgeon on-callDr. Villarreal. He reviewed today's images as well as his images from last month and agrees with radiology that the images are markedly improved today and secondary to that he does not feel that the gallbladder is the source of the patient's symptoms. He states that because of that he does not feelthere is any intervention that he needs to provide at this time. However he states he is agreeable to potentially removing the gallbladder if thepatient's images and labs progressed to a similar appearance to last month. Thecase was then discussed with the hospitalist and she was informed of this conversation as well as the persistent hypotension despite fluid resuscitation and she agrees accept the patient to the ICU for continued care. History & Record Review Discussion w/independent historian: Patient and Significant other Lab Data Attestation: I reviewed the patient's lab results. Labs: Laboratory Results - last 24 hr 10/15/24 10/15/24 04:47 05:10 WBC 8.2 RBC 3.91 L Hgb 9.8 L Hct 32.2 L MCV 82.4 MCH 25.1 L MCHC 30.4 L RDW Std Deviation 61.2 H RDW Coeff of Lydia 20.5 H Plt Count 129 L MPV 9.0 Immature Gran % (Auto) 0.400 Neut % (Auto) 84.8 H Lymph % (Auto) 10.6 L Fillmore % (Auto) 3.5 Eos % (Auto) 0.6 Baso % (Auto) 0.1 Absolute Neuts (auto) 6.9 Absolute Lymphs (auto) 0.87 Nucleated RBC % 0 Anisocytosis 1+ Sodium 137 Potassium 4.0 Chloride 101 Carbon Dioxide 24.4 Anion Gap 11 BUN 20 H Creatinine 0.99 Estim Creat Clear Calc 61.47 Est GFR (MDRD) Non-Af 81 BUN/Creatinine Ratio 20.6 H Glucose 103 H Lactic Acid 1.8 Calcium 9.1 Total Bilirubin 1.46 H Direct Bilirubin 0.68 H AST 23 ALT 19 Alkaline Phosphatase 129 Total Protein 7.1 Albumin 3.9 Globulin 3.2 Lipase 22 Procalcitonin 0.87 H Urine Color Yellow Urine Clarity Clear Urine pH 7.0 Ur Specific Spencer 1.010 Urine Protein Negative Urine Glucose (UA) Normal Urine Ketones Negative Urine Occult Blood Negative Urine Nitrite Negative Urine Bilirubin Negative Urine Urobilinogen Normal Ur Leukocyte Esterase Negative Urine RBC 0 SEEN Urine WBC 0 SEEN Ur Squamous Epith Cells 0 SEEN Urine Bacteria RARE Urine Mucus 0 SEEN Radiography Diagnostic Testing: Clinical Impression(s) from Imaging Studies Abdomen/Pelvis CT 10/15/24 05:30 IMPRESSION: Resolution of the bilateral pleural effusion as well as the related compression atelectasis. Resolution of the gall bladder mural edema. Resolution of the mild ascites. Stable rest of the study findings as detailed Reading Location: [place] [address] Chest X-Ray 10/15/24 05:32 IMPRESSION: Bilateral basal faint infiltrates.Minimal bilateral pleural effusion. Right 8th rib sclerotic lesion, Bones scan is advised. Reading Location: [place] [address] Abdomen Ultrasound 10/15/24 06:36 IMPRESSION: No definite acute abnormalities. Reading Location: [place] [address] Chest x-ray as interpreted by the emergency medicine system reveals atelectasis in the bilateral bases without acute infiltrate Critical Care Time Critical Care Time: Yes Critical care time (excluding procedures): Discussing w/Patient &/or Family/CareGiver, Discussing w/Consultants and - (Please note critical care time of 37 minutes) Discharge Plan Triage Chief Complaint: Weakness ED Provider: Sukhwinder Sierra Dx/Rx/DC Orders Clinical Impression: Scleral icterus, Acute hypotension, Pyrexia, SIRS (systemic inflammatory response syndrome), Prostate cancer Prescriptions: No Action Eligard (6 month) 45 mg syringe 45 mg subcut .COMPLEX Rx Instructions: 45 mg subcutaneously EVERY 6 MONTHS; cimetidine [Heartburn Relief (cimetidine)] 200 mg tablet 200 mg PO DAILY Rx Instructions: administer with meals Aranesp (in polysorbate) 25 mcg/mL solution 25 mcg subcut QMONTH atorvastatin 20 mg tablet 20 mg PO [...] intravenously EVERY MONTH; Primary Care Provider: López Lilly Referrals: López Lilly MD [Primary Care Provider] - Print Language: Puerto Rican Disposition Disposition: Acute Care Hospital [facility] What to do if you have Problems For any increased pain, shortness of breath, bleeding, nausea or vomiting, chestpain, or any unexpected problems, contact your Primary Care Provider. Call [facility] ([phone]) or report tothe closest Emergency Room. Call 911 if necessary. 10/15/24 0836 Cosigner Signature (if applicable): CC: Dr. López Lilly MD ~ Signed [facility]07-11-2025 Radiology Diagnostic study note [facility] Imaging Services [address] [place] [address] Abdomen Limited MR#: [id number] Acct: [id number] Name: LUTHER CASTILLO II Rep #: [id number] : 1955 M 69 From: Pio Feliz MD PCP: Dr. López Lilly MD Status: REG ER Study:Abdomen Limited Date of Exam: 10/05 05/01 Exam# [id number] Ordering Dr: Eugenie Sierra DO PROCEDURE: ABDOMEN LIMITED 10/15/2024 REASON FOR EXAM: ABD PAIN TECHNIQUE: ABDOMEN LIMITED COMPARISON: 10/15/2024 FINDINGS: Liver: Grossly normal size and echotexture. Measures 14.9 cm. Gallbladder: No stones. Negative Renee's sign. Wall 3 mm. Common bile duct: 3 mm No abnormalities. . Pancreas: Tail is not seen. Head and body are normal. Kidneys: The right kidney measures 11.7x4.7x5 cm. Cortex 1.6 cm. No hydronephrosis, No mass. No stones. US/Abdomen Limited IMPRESSION: No definite acute abnormalities. Reading Location: [place] [address] CC: Dr. López Lilly MD; Sukhwinder Sierra DO ~ Stock Crane Operator: Signed [facility]07-11-2025 Radiology Diagnostic study note [facility] Imaging Services [address] [place] [address] Abdomen/Pelvis W IV Cont ONLY MR#: [id number] Acct: [id number] Name: LUTHER CASTILLO II Rep #: [id number] : 1955 M 69 From: Pio Feliz MD PCP: Dr. López Lilly MD Status: REG ER Study:Abdomen/Pelvis W IV Cont ONLY Date of E xam: 10/15/24 Exam# [id number] Ordering Dr: Eugenie Sierra DO PROCEDURE: ABDOMEN/PELVIS W IV CONT ONLY 10/15/2024 REASON FOR EXAM: ? ASCENDING CHOLANGITIS TECHNIQUE: ABDOMEN/PELVIS W IV CONT ONLY Coronal and Sagittal reconstruction series were provided. CONTRAST: VOLUME: mL One or more dose reduction techniques were used (e.g., Automated exposure control, adjustment of the mA and/or kV according to patient size, use of iterative reconstruction technique. RADIATION DOSE SUMMARY: CTDlvol:mGy DLP: mGycm COMPARISON: 09-14-2024 FINDINGS: Resolution of the bilateral pleural effusion as well as the related compression atelectasis. Resolution of the gall bladder mural edema. Resolution of the mild ascites. Average sized liver showing homogenous parenchymal attenuation. No dilated intra or extra-hepatic biliary tracts. Gall bladder showing no radiodense calculi. No abnormal mural thickening. Clear surrounding fat planes with no sizeable collections. Atrophic changes of the pancreas with clear surrounding fat planes. The spleen, adrenal glands and IVC are unremarkable. Vascular atheromatous calcifications. Both kidneys are of average size and showing smooth outline with preserved parenchymal thickness. No renal calculi. No hydronephrosis. Perinephric fat stranding. Distension of the urinary bladder showing minimal uniform mural thickening with no obvious masses. Mildly enlarged prostate with calcifications. The appendix is not identified Colonic fecal loading. The small bowel loops are unremarkable. The stomach is unremarkable. No ascites or free air. No obvious pathologically enlarged lymph nodes. Scanned osseous structures show multiple sclerotic osseous lesions, possibly metastatic. Thoracolumbar spondylosis. CT/Abdomen/Pelvis W IV Cont ONLY IMPRESSION: Resolution of the bilateral pleural effusion as well as the related compression atelectasis. Resolution of the gall bladder mural edema. Resolution of the mild ascites. Stable rest of the study findings as detailed Reading Location: [place] [address] CC: Dr. López Lilly MD; Sukhwinder Sierra DO ~ Stock Crane Operator: Signed [facility]07-11-2025 Radiology Diagnostic study note [facility] Imaging Services [address] [place] [address] Chest 1 View (Portable) MR#: [id number] Acct: [id number] Name: LUTHER CASTILLO II Rep #: [id number] : 1955 M 69 From: Pio Feliz MD PCP: Dr. López Lilly MD Status: REG ER Study:Chest 1 View (Portable) Date of Exam: 10/15/24 Exam# [id number] Ordering Dr: Eugenie Sierra DO PROCEDURE: CHEST 1 VIEW (PORTABLE) 10/15/2024 REASON FOR EXAM: FEVER TECHNIQUE: Frontal view of the chest. COMPARISON: 09/18/2024 FINDINGS: Heart: Stable cardiac size. Lungs: Bilateral basal faint infiltrates.Minimal bilateral pleural effusion. Nopneumothorax Bones: Right 8th rib sclerotic lesion, Bones scan is advised. RAD/Chest 1 View (Portable) IMPRESSION: Bilateral basal faint infiltrates.Minimal bilateral pleural effusion. Right 8th rib sclerotic lesion, Bones scan is advised. Reading Location: [place] [address] CC: Dr. López Lilly MD; Sukhwinder Sierra DO ~ Stock Crane Operator: Signed [facility]07-10-2025 Telephone encounter Note* Telephone Encounter - Debbie Richmond LPN - 10/14/2024 8:38 AM EDT Images from the original note were not included. Davida Al MD P [facility] General Surgery Pool Please let the patient know that after reviewing his images from [facility] I would like him to have follow-up laboratory studies-CBC and chemistry panel which are ordered and a follow-up rightupper quadrant ultrasound. I am not certain that his episode truly was a calculus cholecystitis. Please have him follow-up in the office after the studies are completed. Called patient. Verified name and date of . Patient informed- verbalizes understanding. Transferred to scheduling. Debbie Richmond LPN [facility]07-10-2025 Miscellaneous Notes* Telephone Encounter - Debbie Richmond LPN - 10/14/2024 8:38 AM EDT Images from the original note were not included. Davida Al MD P [facility] General Surgery Pool Please let the patient know that after reviewing his images from [facility] I would like him to have follow-up laboratory studies-CBC and chemistry panel which are ordered and a follow-up rightupper quadrant ultrasound. I am not certain that his episode truly was a calculus cholecystitis. Please have him follow-up in the office after the studies are completed. Called patient. Verified name and date of . Patient informed- verbalizes understanding. Transferred to scheduling. Debbie Richmond LPN documented in [facility]Green [facility] History of Present illness Narrative* Davida Al MD - 10/14/2024 5:39 AM EDT HISTORY AND PHYSICAL Luther Castillo 1955 REFERRING PHYSICIAN: Bashir Killian DO CHIEF COMPLAINT: Consult (Cholangitis) HPI: Luther is a 69 year old male with a recent hospital admission for sepsis presumed to be due to acalculous cholecystitis. 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 Luther was hospitalized at [facility] on September 18 for 4 nights due to sepsis and a bloodstreaminfection. During this hospitalization, he was tentatively diagnosed with acalculous cholecystitis.In the emergency department he was noted to [...] the time of hospitalization and does not recallany mental status changes. He was advised to follow up with his primary care provider for further evaluation and management. Luther also reports a non-healing scalp wound following Mohs surgery 4 months ago. He has been receiving treatment at the wound center in [place] and is considering a second opinion. He mentions that the wound has not shown significant improvement and is considering a skin graft as recommended by his current provider. The patient is being seen by me today at the request of Dr. Arsalan Lilly MD for my opinion and advice regarding [...] deficiency anemia, unspecified Prostate cancer (HCC) Dr. 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 Ultrasound showed nogallstones, but evidence of wall thickening. Blood cultures revealed Streptococcus intermedius and a gram-negative moi. No mental status changes reported during hospitalization. Questionable diagnosis is ascending cholangitis. - I obtained copies of ultrasound and CT scan reports from [facility]. I plan to repeat his laboratory [...] My findings have been communicated to Dr. Killian via shared medical record. This note will be forwarded to Dr. Arsalan Lilly MD. Davida Al MD documented in [facility] encounterGreen [facility]07-[facility] Telephone encounter Note * Telephone Encounter - Namita Cano RN - 10/13/2024 12:52 PM EDT Images requested pushed from [facility]. Labs and imaging reports printed and sent to scanned docs.Namita Cano RN [facility]07-09-2025 Miscellaneous Notes* Telephone Encounter - Namita Cano RN - 10/13/2024 12:52 PM EDT Images requested pushed from [facility]. Labs and imaging reports printed and sent to scanned docs.Namita Cano RN documented in this encounterGreen Cross Hospital07-09-2025 Instructions* Patient Instructions* Davida Al MD - 10/13/2024 10:18 AM EDT [...] ultrasound, CT scan, and lab results from [facility] to confirm findings and better understand the [...] seek immediate medical attention. documented in this encounterGreen Cross Hospital07-08-2025 [facility] History of Present illness Narrative* Linden Mcguire MD - 10/12/2024 10:01 AM EDT [facility] Name: Luther [...] deficiency anemia, unspecified Prostate cancer (HCC) Dr. 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 Discussed that stage 1 will be undergeneral anesthesia, but step 2 could be done with light sedation or GA. -Discussed the risks benefits, and alternatives to surgery. Patient understands the risks and is agreeable to proceed with the first stage. Consent signed. Arnulfo Ortiz MD For the service of Linden Mcguire MD Attending attestation: I personally evaluated and examined the patient with Dr. Ortiz. Within the resident's note, I have edited the history, physical exam, assessment, and plan to reflect my own findings. Linden Mcguire MD, FACS Facial Plastic and Reconstructive Surgery [facility], [facility] Medical Decision Making: Problems: Moderate: New problem with uncertain prognosis Risk: Moderate: Decision on elective major surgery w/o risk factors Medical Decision Making Level: 4 - Moderate * Nadia Rodríguez LPN - 10/12/2024 9:56 AM EDT Tobacco Use: Types: Cigarettes Was smoking cessation packet given? N/A - Patient is a non-smoker or quit >1 year ago. Was a referral initiated?N/A Patient is a non-smoker documented in this encounterGreen Cross Hospital07-08-2025 [facility]07-[facility] Telephone encounter Note* Telephone Encounter - Natalya Dorsey RN - 10/07/2024 1:[address] Villarrael, yes he is willing to do a referral to [facility]. Order signed and faxed. Krista Dorsey RN [facility] Work Phone: 1(531) 335-154507-03-2025 Miscellaneous Notes* Telephone Encounter - Natalya Dorsey RN - 10/07/2024 1:[address] Villarreal, yes he is willing to do a referral to [facility]. Order signed and faxed. Krista Dorsey RN documented in this encounterGreen Cross Hospital06-30-2025 Telephone encounter Note * Telephone Encounter - Abigail Ferrer LPN - 10/04/2024 4:11 PM EDT MRI order needs to com from [facility] Abigail Ferrer LPN [facility]06-30-2025 Telephone encounter Note* Telephone Encounter - Gabi Reyna - 10/04/2024 3:[address] order for MRI [facility] Work Phone: [phone]) 736-464606-27-2025 Telephone encounter Note* Telephone Encounter - Bashir Killian DO - 10/01/2024 6:49 PM EDT Please fax results of MRI to his ep technologist. He should be seen to evaluate the scalp wound by dermatology. Needs repeat MRI in about 8 weeks. Bashir Killian DO [facility]06-27-2025 Telephone encounter Note* Telephone Encounter - Crystal Medley - 10/01/2024 12:23 PM EDT [facility] requesting pt to call back Referral from Dr. 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 Aggressive tumor--strippedperiosteum to fully remove tumor, was mod-diff, and [...] him to you. May need a tissue supervisor transcribing operators prior to a flap as his scalp is very tight. Any help you can provide would be much appreciated! [facility]06-27-2025 Miscellaneous Notes* Telephone Encounter - Crystal Medley - 10/01/2024 12:23 PM EDT [facility] requesting pt to call back Referral from Dr. 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 Aggressive tumor--strippedperiosteum to fully remove tumor, was mod-diff, and [...] him to you. May need a tissue supervisor transcribing operators prior to a flap as his scalp is very tight. Any help you can provide would be much appreciated! documented in this encounterGreen Cross Hospital06-27-2025 [facility]06-[facility] History of Present illness Narrative* Yanet Cardoso RN - 10/01/2024 11:23 AM EDT PROCEDURE FOLLOW UP PATIENT ID [...] to heal by second intent. There are nosigns of infection, bone exposed and very little change in the wound healing since last visit. Pt has been using vaseline and Duoderm dressing- changing it every 2 days or so. Seen by Dr. Bronson to discuss options. Will refer pt to Dr. Mcguire to discuss further management. Message sent by Dr. Bronson to Dr. Mcguire today. FOLLOW UP: next appt to be arranged to see Dr. Darlyn Cardoso RN October 01, 2024 11:23 AM documented in this encounterGreen Cross Hospital06-26-2025 [facility]06-[facility] History of Present illness Narrative* Abigail Ferrer LPN - 09/30/2024 4:12 PM EDT aranesp injection administered, left arm, tolerated well, no immediate adverse reactions noted. See office notes. Abigail Ferrer LPN documented in this encounterGreen Cross Hospital06-26-2025 [facility]06-[facility] History of Present illness Narrative* Dereje Villarreal MD - 09/30/2024 3:41 PM EDT (Elements copied from my note dated September 08, 2024, have been reviewed and updated where appropriate,and all reflect current assessment and medical decision making from today's encounter, September 30, 2024) HISTORY OF PRESENT ILLNESS: Luther Castillo is a [address] Dr. Lopez's previous note: H/o refractory anemia who present [...] electrophoresis negative. Feel poorly after each aranesp Was in [facility] early September with bacteremia, source unclear possible gall bladder. Needed a blood transfusion. Also with headaches, had MRI brain, showed possible bone edema adjcant to scalp Moh's surgery he has earlier in 2024. CLINICAL IMPRESSION: Prostate cancer under good control, [...] deficiency anemia, unspecified Prostate cancer (HCC) Dr. 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 Electronically Signed: Dereje Villarreal MD September 30, 2024 documented [facility] Telephone encounter Note * Telephone Encounter - Gabi Reyna - 09/30/2024 1:23 PM EDT completed [facility] Work Phone: 1(820) 264-210406-26-2025 Miscellaneous Notes* Telephone Encounter - Gabi Reyna - 09/30/2024 1:23 PM EDT completed * Telephone Encounter - Natalya Dorsey RN - 09/30/2024 9:40 AM EDT yes, there are standing orders for CBC/PSA/BMP, also needs VitB12/Folate/Retic as ordered from lastOV. Krista Dorsey RN * Telephone Encounter - Gabi Reyna - 09/30/2024 9:27 AM EDT Patient called asking if labs are needed for todays appointment. He is aware he has labs scheduled for 10/05. He will be in at the arrival time of 3:05 and states if labs are needed, go ahead and schedule and he will check with front desk representative. No need to call and inform patient. documented in this encounterGreen [facility] Hospital06-26-2025 Telephone encounter Note * Telephone Encounter - Natalya Dorsey RN - 09/30/2024 9:40 AM EDT yes, there are standing orders for CBC/PSA/BMP, also needs VitB12/Folate/Retic as ordered from lastOV. Krista Dorsey RN [facility] Work Phone: [phone]) 461-811506-26-2025 Telephone encounter Note* Telephone Encounter - Gabi Reyna - 09/30/2024 9:27 AM EDT Patient called asking if labs are needed for todays appointment. He is aware he has labs scheduled for 10/05. He will be in at the arrival time of 3:05 and states if labs are needed, go ahead and schedule and he will check with front desk representative. No need to call and inform patient. [facility]06-24-[facility]25 Telephone encounter Note* Telephone Encounter - Mili Villa - 09/28/2024 3:45 PM EDT Spoke w pt and he is scheduled w Dr Al on 10/13. Mili Villa [facility]06-24-2025 Miscellaneous Notes* Telephone Encounter - Mili Villa - 09/28/2024 3:45 PM EDT Spoke w pt and he is scheduled w Dr Al on 10/13. Mili Villa * Telephone Encounter - Natalya Dorsey RN - 09/28/2024 1:03 PM EDT PSS: patient also need scheduled consult to general surgery. order within phone note. patient ok to havefirst available from below. Krista Dorsey RN ---needs a surgical consult to either [place] (Dr. Al) or one the surgeons at [place], (Chole Boles or Sergey). * Telephone Encounter - Mili Vlila - 09/24/2024 2:29 PM EDT Spoke to pt and MRI brain is scheduled for 09/28. Mili Villa * Telephone Encounter - Abigail Ferrer LPN - 09/24/2024 1:10 PM EDT PSS please reach out to pt. To schedule MRI of Brain. Abigail Ferrer LPN * Telephone Encounter - Bashir Killian DO - 09/24/2024 12:15 PM EDT I filed the order. Okay to schedule. Bashir Killian DO * Telephone Encounter - Abigail Ferrer LPN - 09/24/2024 8:45 AM EDT Spoke with pt. Informed Dr. Killian had recommended and MRI of brain and referral to bag repairer. Pt. States he see's Dr. Veena Crawford Statistical Financial Analyst @ [facility] here in [place]. MRI brain order pended. Not sure if Dr. Killian wants to sign or wait until Dr. Villarreal returns Abigail Ferrer LPN * Telephone Encounter - Bashir Killian DO - 09/23/2024 5:14 PM EDT MRI brain with and without contrast when able. Advised him to see his bag repairer. If he does not have one, then refer to either ophthalmology here or at the [facility] [place]. * Telephone Encounter - Natalya Dorsey RN - 09/23/2024 4:49 PM EDT Surgery consult pended. Called and spoke with patient, he is aware of f/u appt next week with Dr. Villarreal. He is ok to see either of the surgeons listed. ok to see whoever has first available. Asked more about his symptoms, clarified that it is the right side and previous note addended. States he on occasion has some issues with vision, states sometimes it gets bright and I can't seeas well, the past Friday prior to going to the ED, it was having vision issues, could only see shapes of things but states his BP and sugar was low. He denies any issues with vision now, no difficulty or issues when he moves his eye or looks in different directions. Aware that I will update Dr. Killian with above and call back. Krista Dorsey RN * Telephone Encounter - Ntaalya Dorsey RN - 09/23/2024 3:19 PM EDT PSS: please schedule patient Hospital f/u OV with Dr. Villarreal 09/30/24 at 320pm. Patient/ aware, no need to call. ERIN Vila Dr. agrees with F/U OV on 09/30/24 and adds needs a surgical consult to either [place] (Dr. Al) or one the surgeons at [place], (Tierra Sofia, Chloe or Sergey). He reviewed the chart regarding headaches, low concern for cancer. Krista Dorsey RN * Telephone Encounter - Natalya Dorsey RN - 09/23/2024 10:43 AM EDT DISCHARGE CALL BACK Today's date: September 23, 2024 Notified of Pt discharge by: Dr. Killian Patient discharged on 09/22/24 from [facility] to Home Primary Cancer Diagnosis: Prostate Admitting Diagnosis: Sepsis, acute cholecystitis Discharge Summary/SBAR reviewed: Yes Handoff Discussed with Transitional Soil Science Technical Officer: N/A Psychosocial Risk Factors: None If patient [...] of there f/u, they did report Dr. Villarreal, his thought was it was related to Mohs and she states they reported to Derm and they did not think related to Mohs procedure. During hospital stay, they were advised to let Dr. Villarreal know he still has headaches and an [...] need interventions will discuss plan with Dr. Killian or same day appointment: No MEDICATION ADHERENCE Patient discharged with prescriptions? Yes, Cefdinir Discharge prescriptions filled: Yes Patient understands when to take prescriptions: Yes FOLLOW UP Patient scheduled for follow-up appointment within 5 business days of discharge? Yes Patient reminded of follow-up appointment with [facility] provider, Dr. Villarreal on 09/30/24: Yes Discussed Denies fever/chills. Taking [...] YES Natalya Dorsey RN documented in this encounterGreen Cross Hospital06-24-2025 Telephone encounter Note * Telephone Encounter - Natalya Dorsey RN - 09/28/2024 1:03 PM EDT PSS: patient also need scheduled consult to general surgery. order within phone note. patient ok to havefirst available from below. Krista Dorsey RN ---needs a surgical consult to either [place] (Dr. Al) or one the surgeons at [place], (Tierra Sofia, Chloe or Sergey). [facility] Work Phone: 1(137) 208-676006-24-2025 History of Present illness Narrative* Sherri Garcia, RT(R) - 09/28/2024 12:30 PM EDT Radiology Service Progress Note DATE [...] PATIENT PRESENTS WITH AN IMPLANTABLE OR ATTACHED SOFTWARE QUALITY ANALYST: No ALLERGIES: Reviewed and unchanged CONTRAST ALLERGY: NO. EXAM: MRI - CONTRAST TYPE: GROUP II PERIPHERAL IV DATA: Ambulatory: A peripheral IV was started in the Right antecubital site with a Angio cath: 22 gauge. RADIOLOGY DEPARTMENT: MR; Exam(s) Completed: Head: Routine Brain. Aromatherapy Administered: No SIGNATURE: Sherri Garcia RT(R) PATIENT NAME: Luther Castillo DATE: September 28, 2024 TIME: 12:29 PM documented in this encounterGreen Cross Hospital06-24-2025 [facility] Telephone encounter Note* Telephone Encounter - Mili Villa - 09/24/2024 2:29 PM EDT Spoke to pt and MRI brain is scheduled for 09/28. Mili Villa [facility]06-20-2025 Telephone encounter Note* Telephone Encounter - Abigail Ferrer LPN - 09/24/2024 1:10 PM EDT PSS please reach out to pt. To schedule MRI of Brain. Abigail Ferrer LPN [facility]06-20-2025 Telephone encounter Note* Telephone Encounter - Bashir Killian DO - 09/24/2024 12:15 PM EDT I filed the order. Okay to schedule. Bashir Killian DO [facility]06-20-2025 Telephone encounter Note* Telephone Encounter - Abigail Ferrer LPN - 09/24/2024 8:45 AM EDT Spoke with pt. Informed Dr. Killian had recommended and MRI of brain and referral to bag repairer. Pt. States he see's Dr. Veena Crawford Statistical Financial Analyst @ [facility] here in [place]. MRI brain order pended. Not sure if Dr. Killian wants to sign or wait until Dr. Villarreal returns Abigail Ferrer LPN [facility]06-19-2025 Telephone encounter Note* Telephone Encounter - Bashir Killian DO - 09/23/2024 5:14 PM EDT MRI brain with and without contrast when able. Advised him to see his bag repairer. If he does not have one, then refer to either ophthalmology here or at the [facility] [place]. [facility]06-19-2025 Telephone encounter Note* Telephone Encounter - Natalya Dorsey RN - 09/23/2024 4:49 PM EDT Surgery consult pended. Called and spoke with patient, he is aware of f/u appt next week with Dr. Villarreal. He is ok to see either of the surgeons listed. ok to see whoever has first available. Asked more about his symptoms, clarified that it is the right side and previous note addended. States he on occasion has some issues with vision, states sometimes it gets bright and I can't seeas well, the past Friday prior to going to the ED, it was having vision issues, could only see shapes of things but states his BP and sugar was low. He denies any issues with vision now, no difficulty or issues when he moves his eye or looks in different directions. Aware that I will update Dr. Killian with above and call back. Krista Dorsey RN [facility]06-19-2025 Telephone encounter Note* Telephone Encounter - Natalya Dorsey RN - 09/23/2024 3:19 PM EDT PSS: please schedule patient Hospital f/u OV with Dr. Villarreal 09/30/24 at 320pm. Patient/ aware, no need to call. ERIN Vila Dr. agrees with F/U OV on 09/30/24 and adds needs a surgical consult to either [place] (Dr. Al) or one the surgeons at [place], (Tierra Sofia, Chloe or Sergey). He reviewed the chart regarding headaches, low concern for cancer. Krista Dorsey RN [facility]06-19-2025 Telephone encounter Note* Telephone Encounter - Natalya Dorsey RN - 09/23/2024 10:43 AM EDT DISCHARGE CALL BACK Today's date: September 23, 2024 Notified of Pt discharge by: Dr. Killian Patient discharged on 09/22/24 from [facility] to Home Primary Cancer Diagnosis: Prostate Admitting Diagnosis: Sepsis, acute cholecystitis Discharge Summary/SBAR reviewed: Yes Handoff Discussed with Transitional Soil Science Technical Officer: N/A Psychosocial Risk Factors: None If patient [...] of there f/u, they did report Dr. Villarreal, his thought was it was related to Mohs and she states they reported to Derm and they did not think related to Mohs procedure. During hospital stay, they were advised to let Dr. Villarreal know he still has headaches and an [...] need interventions will discuss plan with Dr. Killian or same day appointment: No MEDICATION ADHERENCE Patient discharged with prescriptions? Yes, Cefdinir Discharge prescriptions filled: Yes Patient understands when to take prescriptions: Yes FOLLOW UP Patient scheduled for follow-up appointment within 5 business days of discharge? Yes Patient reminded of follow-up appointment with [facility] provider, Dr. Villarreal on 09/30/24: Yes Discussed Denies fever/chills. Taking [...] weekend phone number? YES Natalya Dorsey RN [facility]06-18-2025 [facility]06-18-2025 Discharge summary Author Ivan Nugent [facility] Note Date/Time September 22, 2024 4:16 pm [facility] Medical Records Department [address] [place] [address] Instructions for Home/Discharge Instructions 09/22/24 1614 MR#: [id number] Acct: [id number] Name: LUTHER CASTILLO II Rep #:[id number] : 1955 69 From: Ivan quinn MD PCP: Dr. López Lilly MD Status :ADM IN Discharge Instructions Diet [...] Provider: Ivan Nugent Primary Care Provider: López Lilly Consulting Providers: Rohit Crawford Discharge Orders/Prescriptions Prescriptions: [...] EVERY MONTH; Referrals / Follow Up: López Lilly MD [Primary Care Provider] - Within 1 Week Rohit Crawford MD [Med Staff - Active Staff] - Within 2 Weeks (Unless you prefera [facility] physician) Disposition Disposition (needs filled in before D/C Order can be placed): Home, Self Care 09/22/24 1616<Electronically signed by Ivan Nugent MD>Ivan Nugent MD CC: Dr. López Lilly MD; Dr. Rohit Crawford MD ~ Signed [facility] Work Phone: 1(267) 333-718806-18-2025 Progress note [facility] Medical Records Department [address] [place] [address] Progress Note - Surgery 09/22/24719 MR#: [id number] Acct: [id number] Name: LUTHER CASTILLO II Rep #:[id number] : 1955 69 From: Rohit Daigle PCP: Dr. López Lilly MD Status :ADM IN Location: [facility] XL520-5 Subjective Subjective Patient seen and examined during [...] % (Auto) 69.5, Lymph % (Auto) 25.6, Fillmore % (Auto) 3.5, Eos % (Auto) 0.9, [...] Cholecystitis should be ruled out. Reading Location: [place] [address] Rhythm Strip Rhythm Strip: Sinus Rhythm Rate: [...] Crawford MD General Surgery Endocrine Surgery Pager: [facility] [address] [place] [address], [facility], [address] [place] [address] Office: [phone] Charges/Coding Visit Charges Inpatient E&M: 48919 Subs Hosp L2 09/22/24 1637 Cosigner Signature (if applicable): CC: ~ Signed [facility]06-18-2025 Discharge summary [facility] Medical Records Department [address] [place] [address] Instructions for Home/Discharge Instructions 09/22/24 1614 MR#: [id number] Acct: [id number] Name: LUTHER CASTILLO ALLAN Rep #:[id number] : 1955 69 From: Ivan quinn MD PCP: Dr. López Lilly MD Status :ADM IN Discharge Instructions Diet [...] Provider: Ivan Nugent Primary Care Provider: López Lilly Consulting Providers: Rohit Crawford Discharge Orders/Prescriptions Prescriptions: [...] EVERY MONTH; Referrals / Follow Up: López Lilly MD [Primary Care Provider] - Within 1 Week Rohit Crawford MD [Med Staff - Active Staff] - Within 2 Weeks (Unless you prefera [facility] physician) Disposition Disposition (needs filled in before D/C Order can be placed): Home, Self Care 09/22/24 1616Ivan Nugent MD CC: Dr. López Lilly MD; Dr. Rohit Crawford MD ~ Signed [facility]06-18-2025 Progress note Author Rohit Crawford [facility] Note Date/Time September 22, 2024 4:37 pm [facility] Medical Records Department [address] [place] [address] Progress Note - Surgery 09/22/24 0720 MR#: [id number] Acct: [id number] Name: LUTHER CASTILLO II Rep #:[id number] : 1955 69 From: Rohit Daigle PCP: Dr. López Lilly MD Status :ADM IN Location: [place] [address] Subjective Subjective Patient seen and examined during [...] % (Auto) 69.5, Lymph % (Auto) 25.6, Fillmore % (Auto) 3.5, Eos % (Auto) 0.9, [...] Cholecystitis should be ruled out. Reading Location: [place] [address] Rhythm Strip Rhythm Strip: Sinus Rhythm Rate: [...] Crawford MD General Surgery Endocrine Surgery Pager: [facility] [address] [facility], [address] [place] [address] Office: [phone] Charges/Coding Visit Charges Inpatient E&M: 01662 Subs Hosp L2 09/22/24 1637 <Electronically signed by Rohit Crawford MD> Cosigner Signature (if applicable): CC: ~ Signed [facility] Work Phone: 1(196) 753-798906-17-2025 Consult note Author Rohit Crawford [facility] Note Date/Time September 21, 2024 6:42 pm [facility] Medical Records Department [address] [place] [address] Consultation - Surgical 09/21/24 1827 MR#: [id number] Acct: [id number] Name: LUTHER CASTILLO II Rep #:[id number] : 1955 69 From: Rohit Daigle PCP: Dr. López Lilly MD Status :ADM IN [facility] Assessment & Plan Assessment/Plan (1) Acute acalculous [...] Crawford MD General Surgery Endocrine Surgery Pager: [facility] [address] [place] [address], [address] [place] [address] Office: [phone] HPI Consult Data Date of Consult: 09/21/24 HPI Narrative Reason for Consultation: Concern for cholecystitis HPI Narrative: LUTHER CASTILLO, is a 69 M who is known to me for a history of appendicitis status post laparoscopic appendectomy February 05, 2024 who presented to [facility] on 09/18/2024 due to complaints of dizziness [...] with bony metastasis. Patient follows with Dr. Villarreal of oncology for treatment. Patient reports undergoing a procedure to try to stimulate healing of a prior Mohs procedure of the scalp 10 weeks ago just prior to his admission. [facility] Medical History (Updated 09/21/24 @ 18:34 by [...] 82.7 H, Lymph % (Auto) 13.0 L, Fillmore % (Auto) 3.0, Eos % (Auto) 0.8, [...] Cholecystitis should be ruled out. Reading Location: [place] [address] Charges/Coding Visit Charges Inpatient E&M: 20945 Init Hosp L2 09/21/24 0807 <Electronically signed by Rohit Crawford MD> Cosigner Signature (if applicable): CC: Dr. López Lilly MD~ Signed [facility] Work Phone: 1(435) 479-321206-17-2025 Consult note [facility] Medical Records Department [address] [place] [address] Consultation - Surgical 09/21/24 1827 MR#: [id number] Acct: [id number] Name: LUTHER CASTILLO II Rep #:[id number] : 1955 69 From: Rohit Daigle PCP: Dr. López Lilly MD Status :ADM IN Location: [facility] HT543-2 Assessment & Plan Assessment/Plan (1) Acute acalculous [...] Crawford MD General Surgery Endocrine Surgery Pager: [facility] [address] [place] [address], [facility], [address] [place] [id number] Office: [phone] HPI Consult Data Date of Consult: 09/21/24 HPI Narrative Reason for Consultation: Concern for cholecystitis HPI Narrative: LUTHER CASTILLO, is a 69 M who is known to me for a history of appendicitis status post laparoscopicappendectomy February 05, 2024 who presented to [facility] on 09/18/2024 due to complaints of dizziness [...] with bony metastasis. Patient follows with Dr. Villarreal of oncology for treatment. Patient reports undergoing a procedure to try to stimulate healing of a prior Mohs procedure of thescalp 10 weeks ago just prior to his admission. [facility] Medical History (Updated 09/21/24 @ 18:34 by [...] 82.7 H, Lymph % (Auto) 13.0 L, Fillmore % (Auto) 3.0, Eos % (Auto) 0.8, [...] Cholecystitis should be ruled out. Reading Location: [facility]- Charges/Coding Visit Charges Inpatient E&M: 21158 Init Hosp L2 09/21/24 1842 Cosigner Signature (if applicable): CC: Dr. López Lilly MD~ Signed [facility]06-17-2025 Telephone encounter Note* Telephone Encounter - Sahara Mcneill LPN - 09/21/2024 4:11 PM EDT Patient's son aware of all information. Sahara Mcneill LPN [facility]06-17-2025 Miscellaneous Notes* Telephone Encounter - Sahara Mcneill LPN - 09/21/2024 4:11 PM EDT Patient's son aware of all information. Sahara Mcneill LPN * Telephone Encounter - Tee Ellis - 09/21/2024 3:53 PM EDT Pt seen here for Prostate Ca- per previous note under good control last PSA was undetectable. Defer to inpatient team. No concerns from a prostate cancer perspective. Tee Ellis APRN.REPRINT SORTER * Telephone Encounter - Gabi Reyna - 09/21/2024 2:55 PM EDT Edmundo called stating that patient was in ICU at [facility] and is now in Step down on 3rd floor. He states they are wanting to remove patient's gallbladder. He is asking if this is a concern since patient is a stage 4 cancer patient. He would like to speak with someone as soon as possible. documented in this encounterGreen [facility]06-17-2025 Telephone encounter Note * Telephone Encounter - Tee Ellis - 09/21/2024 3:53 PM EDT Pt seen here for Prostate Ca- per previous note under good control last PSA was undetectable. Defer to inpatient team. No concerns from a prostate cancer perspective. Tee Ellis APRN.REPRINT SORTER [facility] Work Phone: 1(464) 235-510206-17-2025 Telephone encounter Note* Telephone Encounter - Gabi Reyna - 09/21/2024 2:55 PM EDT Edmundo called stating that patient was in ICU at [facility] and is now in Step down on 3rd floor. He states they are wanting to remove patient's gallbladder. He is asking if this is a concern since patient is a stage 4 cancer patient. He would like to speak with someone as soon as possible. [facility] Work Phone: 1(846) 814-481006-17-2025 Radiology Diagnostic study note [facility] Imaging Services [address] [place], [place] [address] Abdomen Limited MR#: [id number] Acct: [id number] Name: LUTHER CASTILLO II Rep #: [id number] : 1955 M 69 From: Collin Krause MD PCP: Dr. López Lilly MD Status: ADM IN Study:Abdomen Limited Date of Exam: 09/05 10/29 Exam# [id number] Ordering Dr: Ivan Nugent MD PROCEDURE: ABDOMEN [...] Cholecystitis should be ruled out. Reading Location: [facility] CC: Dr. López Lilly MD; Dr. Ivan Nugent MD ~ Stock Crane Operator: Signed [facility]06-17-2025 Progress note Author Ivan Nugent [facility] Note Date/Time September 21, 2024 10:0 6am [facility] Medical Records Department [address] [place] [address] Progress Note - Hospitalist 09/21/24 1004 MR#: [id number] Acct: [id number] Name: LUTHER CASTILLO II Rep #:[id number] : 1955 69 From: Ivan quinn MD PCP: Dr. López Lilly MD Status :ADM IN Location: [facility] VC218-7 Subjective Subjective Doing well today, feels much [...] 82.7 H, Lymph % (Auto) 13.0 L, Fillmore % (Auto) 3.0, Eos % (Auto) 0.8, [...] DVT: Heparin Charges/Coding Visit Charges Inpatient E&M: 04821 Subs Hosp L2 09/21/24 1006 <Electronically signed by Ivan Nugent MD> Cosigner Signature (if applicable): CC: ~ Signed [facility] Work Phone: 1(640) 292-714306-17-2025 Progress note [facility] Medical Records Department [address] [place] [address] Progress Note - Hospitalist 09/21/24 1004 MR#: [id number] Acct: [id number] Name: LUTHER CASTILLO TABATHA LEMUS Rep #:[id number] : 1955 69 From: Ivan quinn MD PCP: Dr. López Lilly MD Status :ADM IN Location: [facility] EW442-0 Subjective Subjective Doing well today, feels much [...] 82.7 H, Lymph % (Auto) 13.0 L, Fillmore % (Auto) 3.0, Eos % (Auto) 0.8, [...] DVT: Heparin Charges/Coding Visit Charges Inpatient E&M: 39585 Subs Hosp L2 09/21/24 1006 Cosigner Signature (if applicable): CC: ~ Signed [facility]06-17-2025 Consult note Author Luther Lima [facility] Note Date/Time September 21, 2024 5:52 am [facility] Medical Records Department [address] [place] [address] Pharmacokinetic/Renal -Consult 09/21/24 0551 MR#: [id number] Acct: [id number] Name: LUTHER CASTILLO II Rep #:[id number] : 1955 69 From: Luther Darnell od PCP: Dr. López Lilly MD Status :ADM IN Location: [place] [address]798-1 Consult Antibiotic Management Pharmacy has been consulted [...] time ordered]: 09/22 @ 1700 09/21/24 0552 <Electronically signed by Luther bailey> Date _ Luther Lima Cosigner Signature (if applicable): Date CC: ~ Signed [facility] Work Phone: 1(320) 429-785506-17-2025 Consult note [facility] Medical Records Department [address] [place] [address] Pharmacokinetic/Renal -Consult 09/21/24 0551 MR#: [id number] Acct: [id number] Name: LUTHER CASTILLO ALLAN Rep #:[id number] : 1955 69 From: Luther Darnell od PCP: Dr. López Lilly MD Status :ADM IN Location: [place] [address] Consult Antibiotic Management Pharmacy has been consulted [...] 1700 09/21/24 0552 lood> Date _ Luther Tarango Signature (if applicable): Date CC: ~ Signed [facility]06-16-2025 Telephone encounter Note* Telephone Encounter - Abigail [...] Ferrer LPN September 20, 2024 1:49 PM [facility]06-16-2025 Miscellaneous Notes* Telephone Encounter - Abigail [...] 20, 2024 1:49 PM [facility] Progress note Author Ivan Nugent [facility] Note Date/Time September 20, 2024 8:51 am [facility] Medical Records Department [address] [place] [address] Progress Note - Hospitalist 09/20/24 0845 MR#: [id number] Acct: [id number] Name: LUTHER CASTILLO II Rep #:[id number] : 1955 69 From: Ivan quinn MD PCP: Dr. López Lilly MD Status :ADM IN Location: ICU ICU03-1 [...] 83.2 H, Lymph % (Auto) 12.6 L, Fillmore % (Auto) 3.6, Eos % (Auto) 0.0, [...] IMPRESSION: No acute abdominopelvic finding. Reading Location: [facility] Rhythm Strip Rhythm Strip: Sinus Rhythm [...] DVT: Heparin Charges/Coding Visit Charges Inpatient E&M: 82622 Subs Hosp L2 09/20/24 0851 <Electronically signed by Ivan Nugent MD> Cosigner Signature (if applicable): CC: ~ Signed [facility] Work Phone: [phone]) 766-291706-16-2025 Progress note [facility] Medical Records Department [address] [place] [address] Progress Note - Hospitalist 09/20/24 0845 MR#: [id number] Acct: [id number] Name: LUTHER CASTILLO II Rep #:[id number] : 1955 69 From: Ivan quinn MD PCP: Dr. López Lilly MD Status :ADM IN Location: ICU ICU03-1 [...] 83.2 H, Lymph % (Auto) 12.6 L, Fillmore % (Auto) 3.6, Eos % (Auto) 0.0, Baso % (Auto) 0.0, Absolute Neuts (auto) 4.4, Absolute Lymphs (auto) 0.66 L, Nucleated RBC % 0, Differential CommentSCANNED, Hypochromasia 2+, Anisocytosis 3+, Microcytosis 2+, Ovalocytes 1+, Christiana Cells 1+, Sodium 138, Potassium 3.9, Chloride [...] IMPRESSION: No acute abdominopelvic finding. Reading Location: [facility] Rhythm Strip Rhythm Strip: Sinus Rhythm [...] DVT: Heparin Charges/Coding Visit Charges Inpatient E&M: 66726 Subs Hosp L2 09/20/24 0845 Cosigner Signature (if applicable): CC: ~ Signed [facility]06-15-2025 Consult note Author Ivan Edwards [facility] Note Date/Time September 19, 2024 6:00 pm [facility] Medical Records Department [address] [place] [address] Pharmacokinetic/Renal -Consult 09/19/24 1800 MR#: [id number] Acct: [id number] Name: LUTHER CASTILLO II Rep #:[id number] : 1955 69 From: Ivan [facility] PCP: Dr. López Lilly MD Status :ADM IN Y Location: ICU [...] 09/19/24 1800 <Electronically signed by Ivan Odonnell [facility]> Date _ Ivan Edwards [facility] Cosigner Signature (if applicable): Date CC: ~ Signed [facility] Work Phone: 1(503) 635-932206-15-2025 Consult note [facility] Medical Records Department [address] [place] [address] Pharmacokinetic/Renal -Consult 09/19/24 1800 MR#: [id number] Acct: [id number] Name: LUTHER CASTILLO TABATHA LEMUS Rep #:[id number] : 1955 69 From: Ivan [facility] PCP: Dr. López Lilly MD Status :ADM IN Location: ICU ICU03-1 Consult Antibiotic Management Pharmacy [...] Vancomycin (09/21/24 at 0430) 09/19/24 1800 ering RPh> Date _ Ivan Edwards [facility] Cosigner Signature (if applicable): Date CC: ~ Signed [facility]06-15-2025 Progress note Author Ivan Nugent [facility] Note Date/Time September 19, 2024 10:3 2am [facility] Medical Records Department [address] [place] [address] Progress Note - Hospitalist 09/19/24 1030 MR#: [id number] Acct: [id number] Name: LUTHER CASTILLO II Rep #:[id number] : 1955 69 From: Ivan quinn MD PCP: Dr. López Lilly MD Status :ADM IN Location: ICU ICU03-1 [...] 87.5 H, Lymph % (Auto) 10.7 L, Fillmore % (Auto) 0.9, Eos % (Auto) 0.5, [...] Clarity Clear, Urine pH 6.0, Ur Specific Spencer 1.015, Urine Protein 30 H, Urine Glucose [...] 91.5 H, Lymph % (Auto) 5.0 L, Fillmore % (Auto) 2.4, Eos % (Auto) 0.0, [...] IMPRESSION: No acute process detected. Reading [facility] Abdomen/Pelvis CT 09/19/24 07:13 IMPRESSION: No acute abdominopelvic finding. Reading Location: [id number] Rhythm Strip Rhythm Strip: Sinus Rhythm Rate: [...] DVT: Heparin Charges/Coding Visit Charges Inpatient E&M: 47238 Subs Hosp L2 09/19/24 1032 <Electronically signed by Ivan Nugent MD> Cosigner Signature (if applicable): CC: ~ Signed [facility] Work Phone: 1(527) 355-595506-15-2025 Progress note [facility] Medical Records Department [address] [place] [address] Progress Note - Hospitalist 09/19/24 1030 MR#: [id number] Acct: [id number] Name: LUTHER CASTILLO ALLAN Rep #:[id number] : 1955 69 From: Ivan quinn MD PCP: Dr. López Lilly MD Status :ADM IN Location: ICU ICU03-1 [...] 87.5 H, Lymph % (Auto) 10.7 L, Fillmore % (Auto) 0.9, Eos % (Auto) 0.5, [...] Clarity Clear, Urine pH 6.0, Ur Specific Spencer 1.015, Urine Protein 30 H, Urine Glucose [...] 91.5 H, Lymph % (Auto) 5.0 L, Fillmore % (Auto) 2.4, Eos % (Auto) 0.0, [...] IMPRESSION: No acute process detected. Reading Location[facility] Abdomen/Pelvis CT 09/19/24 07:13 IMPRESSION: No acute abdominopelvic finding. Reading Location: [id number] Rhythm Strip Rhythm Strip: Sinus Rhythm Rate: [...] DVT: Heparin Charges/Coding Visit Charges Inpatient E&M: 52881 Subs Hosp L2 09/19/24 1032 Cosigner Signature (if applicable): CC: ~ Signed [facility]06-15-2025 Radiology Diagnostic study note [facility] Imaging Services [address] [place], [place] [address] Abdomen/Pelvis WITH Contrast MR#: [id number] Acct: [id number] Name: LUTHER CASTILLO II Rep #: [id number] : 1955 M 69 From: Mei Wahl MD PCP: Dr. López Lilly MD Status: ADM IN Study:Abdomen/Pelvis WITH Contrast Date of Ex am: 09/19/24 Exam# [id number] Ordering Dr: Ivan Nugent MD PROCEDURE: ABDOMEN/PELVIS [...] IMPRESSION: No acute abdominopelvic finding. Reading Location: [id number] CC: Dr. López Lilly MD; Dr. Ivan Nugent MD ~ Stock Crane Operator: Signed [facility]06-15-2025 Progress note Author Mariangel Hodges [facility] Note Date/Time September 18, 2024 11:3 2pm [facility] Medical Records Department [address] [place] [address] Progress Note - Hospitalist 09/18/24 2332 MR#: [id number] Acct: [id number] Name: LUTHER CASTILLO ALLAN Rep #:[id number] : 1955 69 From: Mariangel Hodges DO PCP: Dr. López Lilly MD Status :ADM IN Location: ICU ICU03-1 Hospitalist Note Patient persistently hypotensive despite 5 L of IV fluids. Will start [id number] mg 3 times daily and Levophed. Maps have been consistently in the 60-62 range currently. Wean Levophed as able 09/18/242331 <Electronically signed by Mariangel Hodges DO> Cosigner Signature (if applicable): CC: ~ Signed [facility] Work Phone: [phone]) [phone] Progress note [facility] Medical Records Department [address] [place] [address] Progress Note - Hospitalist 09/18/24 233 MR#: [id number] Acct: [id number] Name: LUTHER CASTILLO ALLAN Rep #:[id number] : 1955 69 From: Mariangel Hodges DO PCP: Dr. López Lilly MD Status :ADM IN Location: ICU ICU03-1 Hospitalist Note Patient persistently hypotensive despite 5 L of IV fluids. Will start mg 3 times daily and Levophed. Maps have been consistently in the 60-62 range currently. Wean Levophed as able 09/18/242331 Cosigner Signature (if applicable): CC: ~ Signed [facility]06-14-2025 Consult note Author Ivan Edwards [facility] Note Date/Time September 18, 2024 5:20 pm [facility] Medical Records Department [address] [place] [address] Pharmacokinetic/Renal -Consult 09/18/24 1719 MR#: [id number] Acct: [id number] Name: LUTHER CASTILLO ALLAN Rep #:[id number] : 1955 69 From: Ivan [facility] PCP: Dr. López Lilly MD Status :ADM IN Y Location: ICU [...] 09/18/24 1720 <Electronically signed by Ivan Odonnell [facility]> Date _ Ivan Edwards [facility] Cosigner Signature (if applicable): Date CC: ~ Signed [facility] Work Phone: 1(322) 392-520306-14-2025 History and physical note Author Ivan Nugent [facility] Note Date/Time September 18, 2024 4:20 pm [facility] Medical Records Department [address] [place] [address] H&P Exam - Hospitalist 09/18/24 1601 MR#: [id number] Acct: [id number] Name: LUTHER CASTILLO II Rep #:[id number] : 1955 69 From: Ivan quinn MD PCP: Dr. López Lilly MD Status :ADM IN Location: ICU ICU03-1 [...] on steroids and is unable to compensate. [facility] Medical History (Updated 09/18/24 @ 15:16 by [...] 87.5 H, Lymph % (Auto) 10.7 L, Fillmore % (Auto) 0.9, Eos % (Auto) 0.5, [...] Clarity Clear, Urine pH 6.0, Ur Specific Spencer 1.015, Urine Protein 30 H, Urine Glucose [...] IMPRESSION: No acute process detected. Reading Location[facility] Assessment & Plan Assessment/Plan (1) Sepsis: (2) [...] responsive hypotension Charges/Coding Visit Charges Inpatient E&M: 28052 Init Hosp L3 09/18/24 1620 <Electronically signed by Ivan Nugent MD> Cosigner Signature (if applicable): CC: Dr. López Lilly MD; Dr. Ivan Nugent MD~ Signed [facility] Work Phone: 1([phone]) 470-770106-14-2025 Consult note [facility] Medical Records Department [address] [place] [address] Pharmacokinetic/Renal -Consult 09/18/24 1719 MR#: [id number] Acct: [id number] Name: LUTHER CASTILLO II Rep #:[id number] : 1955 69 From: Ivan [facility] PCP: Dr. López Lilly MD Status :ADM IN Y Location: ICU [...] NEW START IV VANCOMYCIN Consulting Physician: Dr. Nuegnt Indication: Sepsis Goal Trough: 15-20 SrCr: 2.13 [...] Trough: Vancomycin (09/20/24 at 1530) 09/18/24 1720 ering RP> Date _ Ivan Edwards [facility] Cosigner Signature (if applicable): Date CC: ~ Signed [facility]06-14-2025 Discharge summary Author Augustin Carney [facility] Note Date/Time September 18, 2024 3:16 pm [facility] Medical Records Department [address] [address] Emergency Department Summary 09/18/24 MR#: [id number] Acct: [id number] Name: LUTHER CASTILLO II Rep #:[id number] : 1955 69 From: Augustin Carney MD PCP: Dr. López Lilly MD Status :REG ER Location: ED HPI [...] 87.5 H Lymph % (Auto) 10.7 L Fillmore % (Auto) 0.9 Eos % (Auto) 0.5 [...] Clarity Clear Urine pH 6.0 Ur Specific Spencer 1.015 Urine Protein 30 H Urine Glucose [...] IMPRESSION: No acute process detected. Reading Location: [facility] Chest x-ray, portable, single view interpreted by myself shows no acute abnormality. Rhythm Strip Rhythm Strip: Sinus Rhythm Rate: 90 Ectopy: None EKG Initial EKG: Attestation: I personally reviewed and interpreted this EKG as follows: Interpretation: Sinus Rhythm and No Acute Injury Pattern Comments: Sinus rhythm rate of 90 no acute signs of NH or ischemia. No STelevation. No dysrhythmia. He does have inverted T waves in V1 to. Critical Care Time Critical Care Time: Yes Critical care time (excluding procedures): 30-74 minutes, Including time spent:,Discussing w/Patient &/or Family/Chainer, Discussing w/Consultants, ArrangingAdmission or Transfer and - [...] intravenously EVERY MONTH; Primary Care Provider: López Lilly Referrals: López Lilly MD [Primary Care Provider] - Print Language: Puerto Rican Disposition Disposition: Acute Care Hospital [facility] What to do if you have Problems For any increased pain, shortness of breath, bleeding, nausea or vomiting, chestpain, or any unexpected problems, contact your Primary Care Provider. Call [facility] ([phone]) or report to the closest Emergency Room. Call 911 if necessary. 09/18/24 1516 <Electronically signed by Augustin Carney MD> Cosigner Signature (if applicable): CC: Dr. López Lilly MD ~ Signed [facility] Work Phone: 1(879) 490-117806-14-2025 Evaluation note* Diagnosis Onset Date Resolution Status Admit Date Acute acalculous cholecystitis acute September 18, 2024 3:12pm Acute kidney injury acute September 18, 2024 3:12pm Sepsis acute September 18 3:12pm [facility] Work Phone: 1([phone]) 787-115806-14-2025 Evaluation note* Diagnosis Onset Date Resolution Status [...] 2024 9:06am Wound dehiscence acute October 9:06am [facility] Work Phone: 1(525) 459-400106-14-2025 Evaluation note* Diagnosis Onset Date Resolution Status [...] 2024 9:06am Wound dehiscence acute October 9:06am Acute hypotension acute October 152024 8:35am Hypotension acute October 15 8:35am Prostate cancer acute October 8:35am Pyrexia acute October 15 8:35am Scleral icterus acute October 8:35am SIRS (systemic inflammatory response syndrome) acute October 15 8:35am [facility] Work Phone: 1(948) 978-898106-14-2025 Evaluation note* Diagnosis Onset Date Resolution Status [...] 2024 9:06am Wound dehiscence acute October 9:06am Acute hypotension acute October 152024 8:35am Hypotension acute October 15 8:35am Prostate cancer acute October 8:35am Pyrexia acute October 15 8:35am Scleral icterus acute October 8:35am Septic shock acute October 15, 8:35am SIRS (systemic inflammatory response syndrome) acute October 15 8:35am [facility] Work Phone: 1(871) 590-659906-14-2025 History and physical note [facility] Medical Records Department [address] [place] [address] H&P Exam - Hospitalist 09/18/24 1601 MR#: [id number] Acct: [id number] Name: LUTHER CASTILLO II Rep #:[id number] : 1955 69 From: Ivan quinn MD PCP: Dr. López Lilly MD Status :ADM IN Location: ICU ICU03-1 [...] on steroids and is unable to compensate. [facility] Medical History (Updated 09/18/24 @ 15:16 by [...] 87.5 H, Lymph % (Auto) 10.7 L, Fillmore % (Auto) 0.9, Eos % (Auto) 0.5, [...] Clarity Clear, Urine pH 6.0, Ur Specific Spencer 1.015, Urine Protein 30 H, Urine Glucose [...] IMPRESSION: No acute process detected. Reading Location[facility] Assessment & Plan Assessment/Plan (1) Sepsis: (2) [...] responsive hypotension Charges/Coding Visit Charges Inpatient E&M: 56119 Init Hosp L3 09/18/24 162 Cosigner Signature (if applicable): CC: Dr. López Lilly MD; Dr. Ivan Nugent MD~ Signed [facility]06-14-2025 Discharge summary [facility] Medical Records Department [address] [place] [address] Emergency Department Summary 09/18/24 MR#: [id number] Acct: [id number] Name: LUTHER CASTILLO II Rep #:[id number] : 1955 69 From: Augustin Carney MD PCP: Dr. López Lilly MD Status :REG ER Location: ED HPI [...] similar symptoms: No Recent Illness/Hospitalization: No PFSH PFS Medical History (Updated 09/18/24 @ 15:16 by [...] 87.5 H Lymph % (Auto) 10.7 L Fillmore % (Auto) 0.9 Eos % (Auto) 0.5 [...] Clarity Clear Urine pH 6.0 Ur Specific Spencer 1.015 Urine Protein 30 H Urine Glucose [...] IMPRESSION: No acute process detected. Reading Location: [facility] Chest x-ray, portable, single view interpreted by myself shows no acute abnormality. Rhythm Strip Rhythm Strip: Sinus Rhythm Rate: 90 Ectopy: None EKG Initial EKG: Attestation: I personally reviewed and interpreted this EKG as follows: Interpretation: Sinus Rhythm and No Acute Injury Pattern Comments: Sinus rhythm rate of 90 no acute signs of NH or ischemia. No STelevation. No dysrhythmia.He does have inverted T waves in V1 to. Critical Care Time Critical Care Time: Yes Critical care time (excluding procedures): 30-74 minutes, Including time spent:,Discussing w/Patient &/or Family/Chainer, Discussing w/Consultants, ArrangingAdmission or Transfer and - [...] intravenously EVERY MONTH; Primary Care Provider: López Lilly Referrals: López Lilly MD [Primary Care Provider] - Print Language: Puerto Rican Disposition Disposition: Acute Care Hospital [facility] What to do if you have Problems For any increased pain, shortness of breath, bleeding, nausea or vomiting, chestpain, or any unexpected problems, contact your Primary Care Provider. Call [facility] ([phone]) or report tothe closest Emergency Room. Call 911 if necessary. 09/18/24 8046 Cosigner Signature (if applicable): CC: Dr. López Lilly MD ~ Signed [facility]06-14-2025 Discharge summary Author Augustin Carney [facility] Note Date/Time September 18, 2024 3:16 pm [facility] Medical Records Department [address] [place] [address] Emergency Department Summary 09/18/24 MR#: [id number] Acct: [id number] Name: LUTHER CASTILLO ALLAN Rep #:[id number] : 1955 69 From: Augustin Carney MD PCP: Dr. López Lilly MD Status :REG ER Location: ED HPI [...] Prior similar symptoms: No Recent [facility] Medical History (Updated 09/18/24 @ 15:16 by [...] 87.5 H Lymph % (Auto) 10.7 L Fillmore % (Auto) 0.9 Eos % (Auto) 0.5 [...] Clarity Clear Urine pH 6.0 Ur Specific Spencer 1.015 Urine Protein 30 H Urine Glucose [...] IMPRESSION: No acute process detected. Reading Location: [facility] Chest x-ray, portable, single view interpreted by myself shows no acute abnormality. Rhythm Strip Rhythm Strip: Sinus Rhythm Rate: 90 Ectopy: None EKG Initial EKG: Attestation: I personally reviewed and interpreted this EKG as follows: Interpretation: Sinus Rhythm and No Acute Injury Pattern Comments: Sinus rhythm rate of 90 no acute signs of NH or ischemia. No STelevation. No dysrhythmia. He does have inverted T waves in V1 to. Critical Care Time Critical Care Time: Yes Critical care time (excluding procedures): 30-74 minutes, Including time spent:,Discussing w/Patient &/or Family/Chainer, Discussing w/Consultants, ArrangingAdmission or Transfer and - [...] intravenously EVERY MONTH; Primary Care Provider: López Lilly Referrals: López Lilly MD [Primary Care Provider] - Print Language: Puerto Rican Disposition Disposition: Acute Care Hospital [facility] What to do if you have Problems For any increased pain, shortness of breath, bleeding, nausea or vomiting, chestpain, or any unexpected problems, contact your Primary Care Provider. Call [employer] [facility] ([phone]) or report to the closest Emergency Room. Call 911 if necessary. 09/18/24 7630 <Electronically signed by Augustin Carney MD> Cosigner Signature (if applicable): CC: Dr. López Lilly MD ~ Signed [facility] Work Phone: 1(426) 312-499406-14-2025 Radiology Diagnostic study note [facility] Imaging Services [address] [place] [address] Chest 1 View (Portable) MR#: [id number] Acct: [id number] Name: LUTHER CASTILLO II Rep #: [id number] : 1955 M 69 From: Pet er Peer DO PCP: Dr. López Lilly MD Status: PRE ER Study:Chest 1 View (Portable) Date of Exam: 09/18/24 Exam# [id number] Ordering Dr: Pawel Carney MD PROCEDURE: CHEST 1 VIEW (PORTABLE) 09/18/2024 REASON FOR EXAM: DYSPNEA TECHNIQUE: Frontal view of the chest. COMPARISON: Chest radiograph February 05, 2024 FINDINGS: Hardware: None. Heart: Normal size. Lungs: Grossly clear. Bones: No aggressive process. Other: RAD/Chest 1 View (Portable) IMPRESSION: No acute process detected. Reading Location: [facility] CC: Dr. López Lilly MD; Dr. Augustin Carney MD ~ Stock Crane Operator: Signed [facility]06-11-2025 History of Present illness Narrative* Madelaine Bronson [...] Past Histories independently gathered by the clinical pit crew support worker, and the remaining scribed note accurately describes my personal service to the patient. Madelaine Bronson MD [facility]06[facility]06-20[facility] History of Present illness Narrative* Lorin Zhang LPN - 09/10/2024 1:23 PM EDT Patient here for injection of Eligard. Given SQ in RLQ. Patient tolerated well. Pt returns for injection today, Wednesdays injection kit malfunction. She additional information from OV wit Dr Villarreal on 09/08/24 Lorin Zhang LPN documented [facility] History of Present illness Narrative* Lorin [...] today, see today's OV note with Dr Villarreal. documented in this [facility]06-[facility]-2025 [facility]06-04-2025 History of Present illness Narrative* Dereje Villarreal MD - 09/08/2024 10:30 AM EDT (Elements copied from my note dated August 11, 2024, have been reviewed and updated where appropriate, and all reflect current assessment and medical decision making from today's encounter, September 08, 2024) HISTORY OF PRESENT ILLNESS: Luther Castillo is a 68 [address] Per Dr. Lopez's previous note: H/o refractory anemia who present with an elevation PSA. He saw urology, Dr. Varghese on Nasreen 4 and subsequent prostate biopsy on April 19 2021. MRI prostate showed cancer of prostate with capsular invasion some likely metastases to the pelvic bone region. His bone scan subsequently confirmed metastatic disease. Biopsy of prostate confirmed [place]ata 7, prostate cancer. He started androgen deprivation [...] deficiency anemia, unspecified Prostate cancer (HCC) Dr. 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 Seborrheic [...] which included preparing to see the patient, [id number] patient care, completing clinical documentation, obtaining and/or reviewing separately obtained history, counseling and educating the patient/family/caregiver, ordering medications, soha ts, or procedures, independently interpreting results (not separately reported), and communicating results to the patient/family/caregiver. Electronically Signed: Dereje Villarreal MD September 08, 2024 documented in this encounterGreen Cross Hospital05-23-2025 NoteHenry County Hospital05-16-2025 Telephone encounter Note* Telephone Encounter - Roseanna Moore RN - 08/20/2024 4:45 PM EDT Spoke to FULLER BRUSH MAN. Patient informed that diarrhea/flu-like symptoms are not [...] he changes his mind. Roseanna Moore RN [facility]05-16-2025 Miscellaneous Notes* Telephone Encounter - Roseanna Moore RN - 08/20/2024 4:45 PM EDT Spoke to FULLER BRUSH MAN. Patient informed that diarrhea/flu-like symptoms are not [...] mind. Roseanna Moore RN documented in this encounterGreen Cross Hospital05-07-2025 NoteHNO ID: [id number] Author: LORIN ZHANG LPN Service: ? Author Type: LICENSED NURSE Type: Progress Notes Filed: 08/11/2024 09:48 Note Text: Xgeva and Aranesp injections held today per office visit with Dr Villarreal today. [facility] History of Present illness Narrative* Lorin Zhang LPN - 08/11/2024 9:41 AM EDT Xgeva and Aranesp injections held today per office visit with Dr Villarreal today. Lorin Zhang LPN documented in this encounterGreen Cross Hospital05-07-2025 History of Present illness Narrative* Dereje Villarreal MD - 08/11/2024 9:21 AM EDT (Elements copied from my note dated January 21, 2024, have been reviewed and updated where appropriate, and all reflect current assessment and medical decision making from today's encounter, August 11, 2024) HISTORY OF PRESENT ILLNESS: Luther Castillo is a 68 [address] Dr[address] Lopez's previous note: H/o refractory anemia who present with an elevation PSA. He saw urology, Dr. Varghese on April 10 and subsequent prostate biopsy on April 19 2021. MRI prostate showed cancer of prostate with capsular invasion some likely metastases to the pelvic bone region. His bone scan subsequently confirmed metastatic disease. Biopsy of prostate confirmed [place] 7, prostate cancer. He started androgen deprivation [...] deficiency anemia, unspecified Prostate cancer (HCC) Dr. 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 Electronically Signed: Dereje Villarreal MD August 11, 2024 documented in this encounterGreen Cross Hospital05-07-2025 [facility]05-05-2025 Instructions* Patient Instructions* Candace Guerra APRN.CNP - 08/09/2024 3:58 PM EDT PLAN AND RECOMMENDATIONS: Echocardiogram Bone broth Follow up 1 year CONTACT INFORMATION: Candace Guerra APRN.CNP Cardiology Nurse Practitioner Section of Regional Cardiology [place] Dept of Cardiovascular Medicine [facility] [address] [place] [address] Office Office documented in this encounterGreen Cross Hospital05-05-2025 [facility]Cle[facility] History of Present illness Narrative* Candace Guerra APRN.REPRINT SORTER - 08/09/2024 3:30 PM EDT Images from the original note were not included. [facility] Andressa Jaramillo Department of Cardiovascular Medicine SECTION OF CLINICAL CARDIOLOGY OUTPATIENT VISIT DATE August 09, 2024 OUTPATIENT VISIT TYPE ESTABLISHED PRIMARY CARE PHYSICIAN: Arsalan Lilly [address] [place] [address] REFERRING PHYSICIAN: Dorcas Romero [address] [facility] [address] CHIEF COMPLAINT: Follow Up (DX: SOB, Chest pain/Established Cardiology Patient (??)/Dr Romero Referral?/EKG Today/Stress 11/12/23/ECHO 07/03/23/Stress 06/17/23) HISTORY OF PRESENT ILLNESS: Mr. Castillo is a 69 year old male with PMH of stage IV prostate cancer, hyperlipidemia, prostate cancer, GERD, chronically abnormal EKG, who presents today with his for a cardiovascular medicine follow-up visit he saw Dr. Romero in October. At that time he had [...] deficiency anemia, unspecified Prostate cancer (HCC) Dr. 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 Seborrheic keratosis Vasovagal reaction 10/09/2016 PAST SURGICAL HISTORY Procedure Laterality Date APPENDECTOMY 02/05/2024 [facility] COLONOSCOPY 02/27/2022 COLONOSCOPY FLX DX W/COLLJ [...] up 1 year CONTACT INFORMATION: Candace Guerra APRN.[facility] Cardiology Nurse Practitioner Section of Regional Cardiology [facility] Dept of Cardiovascular Medicine [facility] [address] [place] [address] Office Office This note was partially generated using [employer] recognition system and may contain errors related to that system including grammar, punctuation, spelling, and words that may be inappropriate documented in this encounterGreen Cross Hospital04-09-2025 NoteHenry County Hospital04-09-2025 History of Present illness Narrative* Lorin Zhang LPN - 07/14/2024 10:29 AM EDT Patient here for injection of Xgeva, given SQ in right arm. Pt denies any jaw or tooth pain. Also given Aranesp given SQ in left arm. Pt tolerated well. Lorin Zhnag LPN documented in this encounterGreen Cross Hospital04-02-2025 History of Present illness Narrative* Eliana [...] 06, 2024 11:12 AM documented in this encounterGreen Cross Hospital04-02-2025 NoteHenry County Hospital04-02-2025 Telephone encounter Note* Telephone Encounter - [...] needs to have surveillance follow-ups with his ep technologist and he told me that he will. [facility] Work Phone: 1(658) 371-902804-02-2025 Miscellaneous Notes* Telephone Encounter - Suresh Hodges [...] needs to have surveillance follow-ups with his ep technologist and he told me that he will. documented in this encounterGreen Cross Hospital03-20-2025 NoteHenry County Hospital03-20-2025 History of Present illness Narrative* Suresh [...] deficiency anemia, unspecified Prostate cancer (HCC) Dr. 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 No PAST SURGICAL HISTORY Procedure Laterality Date APPENDECTOMY 02/05/2024 [facility] COLONOSCOPY 02/27/2022 COLONOSCOPY FLX DX W/COLLJ [...] Signed by: Suresh Hodges MD cc: Arsalan Lilly [address] [place] [address] Madelaine Bronson [address] [facility] [address] * Mercedez Maldonado RN - 06/24/2024 9:17 AM EDT Radiation Therapy - Nursing Note (Consult) PATIENT NAME: Luther Castillo PATIENT June 24, 2024 [facility] FACILITY/LOCATION: [place] Chief Complaint: consult Reason for visit: Consult. Referring physician: Internal provider Dr Prieto Subjective Data: see pain assessment Additional Data Do you want to see a Specialty Finishing Utility Person? No Are you interested in information about fertility? No Status: Patient is male Stress Scale: On a scale of 0 to 10, what number best describes how much distress you have experienced in the past week?(0 being no distress and 10 being extreme distress) 2 Social work notified: no SIGNED by: Mercedez Maldonado RN documented in this encounterGreen Cross Hospital03-20-2025 NoteHenry County Hospital03-13-2025 Telephone encounter Note* Telephone Encounter - Chelsea Copeland - 06/17/2024 4:58 PM EDT Patient returned call and scheduled 06/24 Chelsea Copeland [facility]03-13-2025 Miscellaneous Notes* Telephone Encounter - Chelsea Copeland - 06/17/2024 4:58 PM EDT Patient returned call and scheduled 06/24 Chelsea Copeland * Telephone Encounter - Gabi Reyna - 06/17/2024 2:28 PM EDT 1st attempt. Message left for patient to contact office to schedule consult with Dr. Hodges. 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 Bronson- Skip in [facility] documented in this encounterGreen Cross Hospital03-13-2025 Telephone encounter Note * Telephone Encounter - Gabi Reyna - 06/17/2024 2:28 PM EDT 1st attempt. Message left for patient to contact office to schedule consult with Dr. Hodges. 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 Bronson- Order in [facility] Work Phone: 1(555) 338-701303-13-2025 Instructions* Patient Instructions* Yanet Cardoso RN - [...] yellow drainage appears please call us at [phone] ext [phone] or 6074. 10. Do not take any Aspirin, Advil, [...] to manage their pain after surgery with Bedu-xzn-Rbdwodr (OTC) medications such as Tylenol (acetaminophen) and [...] How will I alternate my regular strength rgsy-vow-xymmixp pain medication? You will take a dose [...] We recommend that you follow this schedule mfvbdc-zww-ikrgz for at least 3 days after surgery, [...] MOHS SURGERY, you should see your referring ep technologist for a routine skin check every 6 months or on a schedule dictated by your ep technologist. IN CASE OF BLEEDING In case of [...] Surgery Department to speak to aNurse at [phone] ext [phone] or [phone] After 5pm, or on weekends and holidays, and ask for the dermatology surgery fellow cleaning professional documented in this encounterGreen Cross Hospital03-13-2025 History of Present illness Narrative* Madelaine Bronson MD - 06/17/2024 9:00 AM EDT MOHS MICROGRAPHIC OPERATIVE REPORT SERVICE DATE: 06/17/2024 SERVICE TIME: 8:50 AM LOCATION: [place]:[facility],[id number] REFERRING PROVIDER: Richie Dejesus (Iris) [address] [facility] [address] PROCEDURE START TIME: 858 am PROCEDURE END TIME: 11:16 AM SURGEON: Dr. Madelaine Bronson FELLOW: Dr. Ryan Montaño REGISTERED NURSE: Yanet Cardoso, ERIN ANTICOAGULANTS: None IMPLANTED DEVICES: None ANTIBIOTIC PROPHYLAXIS: [...] at Bedside: Inside pathology report # [id number], Date of Biopsy: 05/04/2024, and Biopsy Performed [...] for non-ocular SCC of head and neck. [facility] Risk Factors: tumor diameter greater than or equal to 2 cm (depth of tumor noted to be at subcutaneous fat) Final stage T2a - 1 high-risk factor. Based on the [facility] guidelines. LOCAL ANESTHETIC: 4cc 1% Lidocaine [...] WITH VERBAL UNDERSTANDING: Yes PATIENT DISCHARGED TO REAL ESTATE BROKER/NAME: spouse, Luz FOLLOW UP: Return for suture removal in 3 weeks Pt was also referred to Radiation/ Oncology for consult for possible radiation to field due to high suspicion for vascular invasion seen on Mohs slides. Mohs blocks sent for permanent pathology to assess for LVI/PNI. Patient will be seen in [place] by Dr. Hodges for radiation consultation. The [...] clinical/operative note independently gathered by the clinical pit crew support worker and Fellow and the remaining scribed note accurately describes my personal service to the patient. Madelaine Bronson MD documented in this encounterGreen Cross Hospital03-13-2025 NoteHenry County Hospital03-12-2025 NoteHenry County Hospital03-12-2025 History of Present illness Narrative* ZhangLorin mariano LPN - 06/16/2024 10:56 AM EDT Patient here for injection of Aranesp given SQ in left arm and Xgeva given SQ in right arm. Patienttolerated well. Lorin Zhang LPN documented in this encounterGreen Cross Hospital02-11-2025 Telephone encounter Note * Telephone Encounter - Lorin Zhang LPN - 05/18/2024 11:29 AM EST Refill req received for Prednisone. Next OV here 08/11/24 Lorin Zhang LPN [facility]02-11-2025 Miscellaneous Notes* Telephone Encounter - Lorin Zhang LPN - 05/18/2024 11:29 AM EST Refill req received for Prednisone. Next OV here 08/11/24 Lorin Zhang LPN documented in this encounterGreen Cross Hospital02-06-2025 Telephone encounter Note * Telephone Encounter [...] Ferrer LPN May 13, 2024 7:54 AM [facility]02-06-2025 Miscellaneous Notes* Telephone Encounter - Abigail [...] 13, 2024 7:54 AM documented in this encounterGreen Cross Hospital02-05-2025 NoteHenry County Hospital02-05-2025 History of Present illness Narrative* Lorin Zhang LPN - 05/12/2024 10:09 AM EST Patient here for injection of Xgeva and Aranesp. Given SQ in left and right arm, respectively. Patient tolerated well. Lorin Zhang LPN documented in this encounterGreen Cross Hospital02-05-2025 NoteHNO ID: [id number] Author: ENDY CURRAN PT Service: ? Author Type: Physical Therapist Type: Progress Notes Filed: 05/12/2024 09:44 Note Text: 05/12/2024 [facility] PHYSICAL THERAPY [...] for exercise recently [place] in [employer]) Patient Goals: To decrease lower back and [...] on 05/10/2024 and canceled that appointment over [facility]. Plan of Care is completed. Endy Curran PT, [facility]01-28-2025 Instructions* Patient Instructions* Richie Dejesus MD - [...] response to this product.. documented in this encounterGreen Cross Hospital01-28-2025 History of Present illness Narrative* Richie [...] to patient, understanding verbalized. Richie Dejesus MD RT ppa documented in this encounterGreen Cross Hospital01-28-2025 NoteHenry County Hospital01-08-2025 Telephone encounter Note* Telephone Encounter - Graciela Khan - 04/14/2024 2:42 PM EST Per appt desk, Patient is rescheduled for 05/10/2024 Graciela Khan [facility]01-08-2025 Miscellaneous Notes* Telephone Encounter - Graciela Khan - 04/14/2024 2:42 PM EST Per appt desk, Patient is rescheduled for 05/10/2024 Graciela Khan * Telephone Encounter - Graciela Khan - 04/05/2024 2:32 PM EST Due to a change in Dr. Mcmahon's schedule, Patient's appt on 04/28/2024 has been cancelled. Called Patient-no answer. Left voicemail requesting Patient call the [facility] to reschedule. Patient also notified of cancellation via Act[employer] message. Graciela Khan documented in this encounterGreen Cross Hospital01-08-2025 NoteHenry County Hospital01-08-2025 History of Present illness Narrative* Abigail [...] noted. Abigail Ferrer LPN documented in this encounterGreen Cross Hospital12-30-2024 Telephone encounter Note * Telephone Encounter - Graciela Khan - 04/05/2024 2:32 PM EST Due to a change in Dr. Mcmahon's schedule, Patient's appt on 04/28/2024 has been cancelled. Called Patient-no answer. Left voicemail requesting Patient call the [facility] to reschedule. Patient also notified of cancellation via [employer] message. Graciela Khan [facility]12-26-2024 NoteHNO ID: [id number] Author: ENDY CURRAN PT Service: ? Author [...] in billed treatment time. Endy Curran PT, [facility]12-26-2024 History of Present illness Narrative* Endy Curran PT - 04/01/2024 2:17 PM EST Episode Visit Count: 12 Therapist That Will Accept/Oversee The Plan Of Care: nEdy Curran PT, DERRICK Start of Care Date: [...] Endy Curran PT, DERRICK documented in this encounterGreen Cross Hospital12-24-2024 Telephone encounter Note * Telephone Encounter [...] Ferrer LPN March 30, 2024 11:52 AM [facility]12-24-2024 Miscellaneous Notes* Telephone Encounter - Abigail [...] 30, 2024 11:52 AM documented in this encounterGreen Cross Hospital12-18-2024 NoteHNO ID: [id number] Author: ENDY CURRAN PT Service: ? Author [...] for exercise recently [place] in [employer]) Patient Goals: To decrease lower back and L hip pain (Improving) Time Frame for Goals and Treatment : 05/07/24 Planned Interventions, Frequency, and Duration: 2x/week, 5 weeks Total Number of Visits Planned: 10 Patient to be seen for Therapeutic exercise (47692), Manual therapy (35924), Therapeutic activities (55470), [place] management (56683), Patient/Family/Caregiver Education, Body Mechanics Training PLAN FOR [...] percentile is the avera (more content not included)...[facility]12-18-2024 History of Present illness Narrative * Endy Curran PT - 03/24/2024 2:13 PM EST Images [...] REPORT PLAN OF CARE UPDATE: Assessment: Luther Collin Jonathan demonstrates improvements in bed mobility, cleaning, dressing, [...] for exercise recently [place] [employer]) Patient Goals: To decrease lower back and L hip pain (Improving) Time Frame for Goals and Treatment : 05/07/24 Planned Interventions, Frequency, and Duration: 2x/week, 5 weeks Total Number of Visits Planned: 10 Patient to be seen for Therapeutic exercise (52123), Manual therapy (80221), Therapeutic activities(14602), Self-[place] management (43686), Patient/Family/Caregiver Education, Body Mechanics Training PLAN FOR [...] Time (minutes): 76 Session Start Time : 1416 Session Stop Time : 1533 Time spent on Recumbent Stepper not included in billed treatment time. Endy Curran PT, MBA documented in this encounterGreen Cross Hospital12-13-2024 Instructions* Patient Instructions* Richie Dejesus MD [...] 3 to 4 weeks. documented in this encounterGreen Cross Hospital12-13-2024 History of Present illness Narrative* Richie Dejesus MD - 03/19/2024 10:45 AM EST Patient presents with: Actinic Keratosis Cryosurgery of non-malignant lesion(s) HPI: Patient is here for cryosurgery Patient is alert oriented 3 not in apparent distress Luther Castillo Medical Record: [id number] Date: 03/19/2024 Procedure: Cryosurgery The risks, benefits [...] MD RTC 4 months documented in this encounterGreen Cross Hospital12-13-2024 NoteHenry County Hospital12-11-2024 NoteHenry County Hospital12-11-2024 History of Present illness Narrative* Lorin Zhang LPN - 03/17/2024 9:45 AM EST Patient here today for injections. xgeva (denies jaw pain, tooth pain) given SQ in Rt arm, eligard given SQ in LLQ and aranesp given SQ in left arm. Pt tolerated well Lorin Zhang LPN documented in this encounterGreen Cross Hospital12-10-2024 NoteHNO ID: [id number] Author: JULIANO MAGAÑA PT Service: ? Author [...] Stop Time : 1455 Juliano Magaña PT, [facility]12-10-2024 History of Present illness Narrative* Juliano Magaña, [...] Juliano Magaña PT, DPT documented in this encounterGreen Cross Hospital12-09-2024 Telephone encounter Note * Telephone Encounter [...] Stanton RN March 15, 2024 11:43 AM [facility]12-09-2024 Miscellaneous Notes* Telephone Encounter - Lilibeth [...] 15, 2024 11:43 AM documented in this encounterGreen Cross Hospital12-04-2024 NoteHenry County Hospital12-04-2024 History of Present illness Narrative* Catherine Peraza APRN.REPRINT SORTER - 03/10/2024 9:05 AM EST Images from [...] Current care team: Patient Care Team: Arsalan Lilly MD as PCP - General (Family Medicine) Natalya Dorsey, RN as Specialty Soil Science Technical Officer (Hematology/Oncology) Dereje Villarreal MD (Hematology/Oncology) Outside specialists seen: Dr. Lui [...] ICD10: Z13.31 - DEPRESSION SCREENING Catherine Peraza APRN.CNP Prescription instructions reviewed with patient as applicable. Patient advised if symptoms do not improve or if symptoms worsen sooner, to contact their primary care physician. Potential red flag symptoms discussed with the patient. Reviewed appropriate action plan to take if red flag symptoms occur. Patient agreeable to treatment plan. documented in this encounterGreen Cross Hospital12-03-2024 NoteHNO ID: [id number] Author: JOSE DAVID CEDENO PTA Service: ? Author Type: Bid Manager Type: Progress Notes Filed: 03/09/2024 16:02 Note [...] included in billed treatment time. Jose David Cedeno, [facility]12-03-2024 History of Present illness Narrative* Jose David Cedeno, LIGHTER - 03/09/2024 2:49 PM EST Episode Visit [...] Jose David Cedeno PTA documented in this encounterGreen Cross Hospital11-26-2024 NoteHNO ID: [id number] Author: JULIANO MAGAÑA PT Service: ? Author [...] Stop Time : 1550 Juliano Magaña PT, [facility]11-26-2024 History of Present illness Narrative* Juliano Magaña [...] Juliano Magaña PT, DPT documented in this encounterGreen Cross Hospital11-22-2024 NoteHNO ID: [id number] Author: ROSEANNA HUGHES PTA Service: ? Author Type: Bid Manager Type: Progress Notes Filed: 02/27/2024 13:39 Note [...] 1145 Session Stop Time : 1240 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St[facility] History of Present illness Narrative* HughesRoseanna, [facility] - 02/27/2024 11:38 AM EST Episode Visit [...] 1240 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 PTA documented in this encounterGreen Cross Hospital11-20-2024 Telephone encounter Note * Telephone Encounter - Sariah Amaro - 02/25/2024 1:24 PM EST Patient calling in to see if Dr. Roach wanted him to see Dr. Mcmahon in [place]. Patient mentioned that it was brought up at his appt with Doc and he has not heard anything yet. Please review and advise. Sariah Amaro February 25, 2024 1:25 PM [facility]11-20-2024 Miscellaneous Notes* Telephone Encounter - Sariah Amaro - 02/25/2024 1:24 PM EST Patient calling in to see if Dr. Roach wanted him to see Dr. Mcmahon in [place]. Patient mentioned that it was brought up at his appt with Doc and he has not heard anything yet. Please review and advise. Sariah Amaro February 25, 2024 1:25 PM documented in this encounterGreen Cross Hospital11-20-2024 NoteHNO ID: [id number] Author: ENDY CURRAN PT Service: ? Author [...] Patient to be seen for Therapeutic exercise (24083), Manual therapy (45036), Therapeutic activities (29638), [place] management (93898), Patient/Family/Caregiver Education, Body Mechanics Training PLAN FOR NEXT VISIT: May trial shuttle next session as tolerated [...] noted that he (more content not included)... [facility]11-20-2024 History of Present illness Narrative* Endy Curran [...] Patient to be seen for Therapeutic exercise (88534), Manual therapy (97746), Therapeutic activities(76863), Self-[place] management (18751), Patient/Family/Caregiver Education, Body Mechanics Training PLAN FOR NEXT VISIT: May trial shuttle next session as tolerated [...] Endy Curran PT, MBA documented in this encounterGreen Cross Hospital11-18-2024 NoteHenry County Hospital11-18-2024 History of Present illness Narrative* Vicente Roach MD - 02/23/2024 4:27 PM EST Vicente Roach MD Department of Orthopaedics Orthopaedics [address] [place] [address] Dept: [phone] Dept February 23, 2024 CHIEF COMPLAINT: New and Pain of the Left Hip and Referred by Dr. Villarreal (Last seen 01/06/17 biceps tendinitis ) HPI [...] Known sclerotic osseous lesions 2. Degenerative changes Stock Crane Operator: APRIL Transcribe Date/Time: Dec 27 2023 8:22A [...] deficiency anemia, unspecified Prostate cancer (HCC) Dr. 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 Villarreal for an opinion regarding left hip pain. My final recommendations will be communicated back to the requesting physician by way of shared Medical record or letter to requesting physician via US mail. Dereje Villarreal [address] [facility] [address] Arsalan Lilly MD [address] [facility] [address] Vicente Roach MD documented in this encounterGreen Cross Hospital11-15-2024 NoteHNO ID: [id number] Author: JOSE DAVID CEDENO PTA Service: ? Author Type: Bid Manager Type: Progress Notes Filed: 02/20/2024 13:36 Note [...] Session Stop Time : 1232 Jose David CedenoSt[facility] History of Present illness Narrative* Jose David Cedeno, LIGHTER - 02/20/2024 11:43 AM EST Episode Visit [...] Jose David Cedeno PTA documented in this encounterGreen Cross Hospital11-13-2024 NoteHNO ID: [id number] Author: ROSEANNA HUGHES PTA Service: ? Author Type: Bid Manager Type: Progress Notes Filed: 02/18/2024 14:13 Note [...] 1315 Session Stop Time : 1400 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St[facility] History of Present illness Narrative* 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, [facility] - 02/18/2024 1:18 PM EST Episode Visit [...] 1400 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 PTA documented in this encounterGreen [facility] Hospital11-13-[facility]24 Nurse Note* Lorin Zhang LPN - 02/18/2024 9:40 AM EST Pt here for injection of Xgeva given SQ in the right arm and Aranesp given sq in left arm. Pt tolerated well. [facility]11[facility]13[facility] Nurse Note* Lorin Zhang LPN - 02/18/2024 9:40 AM EST Pt here for injection of Xgeva given SQ in the right arm and Aranesp given sq in left arm. Pt tolerated well. documented in this encounterGreen Cross Hospital11-08-2024 NoteHNO ID: [id number] Author: ROSEANNA HUGHES PTA Service: ? Author Type: Bid Manager Type: Progress Notes Filed: 02/13/2024 13:24 Note [...] 1145 Session Stop Time : 1235 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 History of Present illness Narrative* 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, LIGHTER - 02/13/2024 11:51 AM EST Episode Visit [...] 1235 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 PTA documented in this encounterGreen Cross Hospital11-06-2024 History of Present illness Narrative* 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 PTA - 02/11/2024 11:40 AM EST Program_ID:[id number] Access Code: [email or web address] URL: [email or web address] [email or web address] Party/ Date: 02-11-2024 Prepared By: ENDY CURRAN Program [...] Home Exercise Program Assigned: 1: Access Code: [email or web address] URL: [email or web address] Date: 02/11/2024 Prepared by: ROSEANNA HUGHES Exercises [...] 1144 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 PTA documented in this encounterGreen Cross Hospital11-06-2024 NoteHNO ID: [id number] Author: ROSEANNA HUGHES PTA Service: ? Author Type: Bid Manager Type: Progress Notes Filed: 02/11/2024 12:14 Note [...] Home Exercise Program Assigned: 1: Access Code: [email or web address] URL: [email or web address] [email or web address] Party/ Date: 02/11/2024 Prepared by: ROSEANNA HUGHES Exercises [...] 1104 Session Stop Time : 1144 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 Telephone encounter Note* Telephone Encounter - Abigail [...] Ferrer LPN February 10, 2024 7:35 AM [facility]11-05-2024 Miscellaneous Notes* Telephone Encounter - Abigail [...] 10, 2024 7:35 AM documented in this encounterGreen Cross Hospital11-01-2024 [facility]10-31-2024 Telephone encounter Note* Telephone Encounter - Grace Julio MA - 02/05/2024 2:04 PM EDT Images from the original note were not included. PA approved and patient was notified via voicemail Grace Julio MA [facility]10-31-2024 Miscellaneous Notes* Telephone Encounter - Grace Julio MA - 02/05/2024 2:04 PM EDT Images from the original note were not included. PA approved and patient was notified via voicemail Grace Julio MA * Telephone Encounter - Grace Julio MA - 02/05/2024 12:08 PM EDT [facility] Chen: [id number] Grace Julio MA documented in this encounterGreen Cross Hospital10-31-2024 [facility]10-31-2024 Telephone encounter Note* Telephone Encounter - Grace Julio MA - 02/05/2024 12:08 PM EDT [facility] Chen: [id number] Grace Julio MA [facility]10-29-2024 Telephone encounter Note* Telephone Encounter - Sienna Avila LPN - 02/03/2024 3:19 PM EDT Phoned patient and reviewed results with him. Patient voiced understanding. Sienna Avila LPN [facility]10-29-2024 Miscellaneous Notes* Telephone Encounter - Sienna Avila LPN - 02/03/2024 3:19 PM EDT Phoned patient and reviewed results with him. Patient voiced understanding. Sienna Avila LPN * Telephone Encounter - Sienna Avila LPN - 02/03/2024 3:18 PM EDT ----- Message from Arsalan Lilly MD sent at 02/03/2024 3:09 PM EDT ----- Normal scrotal US aside from 1 mm right testicular calcification which is benign. No abnormalities in left groin. documented in this encounterGreen Cross Hospital10-29-2024 Telephone encounter Note * Telephone Encounter - Sienna Avila LPN - 02/03/2024 3:18 PM EDT ----- Message from Arsalan Lilly MD sent at 02/03/2024 3:09 PM EDT ----- Normal scrotal US aside from 1 mm right testicular calcification which is benign. No abnormalities in left groin. [facility]10-29-[facility] History of Present illness Narrative* Jazzmine [...] PATIENT PRESENTS WITH AN IMPLANTABLE OR ATTACHED SOFTWARE QUALITY ANALYST: No RADIOLOGY DEPARTMENT: Ultrasound PERIPHERAL IV DATA: Not applicable SIGNED BY: Jazzmine [address] Rdms February 03, 2024 2:56 PM documented in this encounterGreen Cross Hospital10-29-2024 [facility] Instructions* Patient Instructions* Sienna Avila LPN [...] review all the medicines you take, even moev-fpg-cavngun medicines. As you get older, the way [...] have certain medical conditions. documented in this encounterGreen Cross Hospital10-29-2024 [facility]10-29-[facility] History of Present illness Narrative* Arsalan Lilly MD - 02/03/2024 10:14 AM EDT Chief [...] but becomes sharp when standing. Today, is 12/15 with ambulation. Not treating with anything OTC [...] also notes that he was evaluated at [facility] ED on 12/18 for possible appendicitis [...] deficiency anemia, unspecified Prostate cancer (HCC) Dr. 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 Asapplicable, any other physician, advance practice provider, medical student, or other health professional student that will be observing or involved in the sensitive examination for educational or training purposes was discussed with the Patient or Authorized Helpdesk Manager. The Patient or Authorized Helpdesk Manager has agreed to proceed with the sensitive [...] Lymph 1.00 - 4.00 k/uL 1.79 2.37 Fillmore% % 6.1 6.5 Abs Fillmore <0.87 k/uL 0.27 0.40 Eosin% % 5.2 [...] ICD9: 724.02, ICD10: M48.061 See above. Arsalan Lilly MD documented in this encounterGreen Cross Hospital10-24-2024 History of Present illness Narrative* Endy Curran, PT - 01/29/2024 10:39 AM EDT Program_ID:[id number] Access Code: [email or web address] URL: [email or web address] [email or web address] Party/ Date: 01-29-2024 Prepared By: ENDY CURRAN Program [...] Planned: 12 Planned Treatment Interventions: Therapeutic exercise (14068), Manual therapy (84377), Therapeutic activities (32544), Self-[place] [facility] care facility management (84871), Patient/Family/Caregiver Education, Body Mechanics Training PLAN FOR [...] and aching. He saw Catherine Peraza APRN, CNP and since that time he has had a terrible, cutting pain in the L groin. He will see Dr. Lilly, his PCP, next week. He has been [...] Program Assigned: Current Home Program: Access Code: [email or web address] URL: [email or web address]/ Date: 01/29/2024 Prepared by: ENDY CURRAN Exercises [...] Endy Curran PT, MBA documented in this encounterGreen Cross Hospital10-24-2024 NoteHNO ID: [id number] Author: ENDY CURRAN PT Service: ? Author [...] Planned: 12 Planned Treatment Interventions: Therapeutic exercise (71464), Manual therapy (54429), Therapeutic activities (04354), Self-[place] [facility] [place] facility management (37138), Patient/Family/Caregiver Education, Body Mechanics Training PLAN FOR [...] is dull and aching. He saw Catherine Podlogar, UI ARCHITECT, REPRINT SORTER and since that time he has had a terrible, cutting pain in the L groin. He will see Dr. Lilly, his PCP, next week. 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 Difficulty with kitc (more content not included)...[facility]10-18-2024 Telephone encounter Note* Telephone Encounter - Karin Burns LISW - 01/23/2024 10:53 AM EDT SOCIAL WORK FOLLOW UP NOTE: [facility] Pt noted on [facility] report. Pt was seen by provider on 01/20. Per chart review, no distress noted. No other needs identified. Deferred SHER Fang [facility]10-18-2024 Miscellaneous Notes* Telephone Encounter - Karin Burns LISW - 01/23/2024 10:53 AM EDT SOCIAL WORK FOLLOW UP NOTE: [facility]ER CENTER Pt noted on [facility] [place] report. Pt was seen by provider on 01/20. Per chart review, no distress noted. No other needs identified. Bekared SHER Fang documented in this encounterGreen Cross Hospital10-16-2024 History of Present illness Narrative* Lorin Zhang LPN - 01/21/2024 9:51 AM EDT Pt here for injection of xgeva given SQ in right arm and aranesp given SQ in left arm Pt tolerated well. For all other information regarding today, see today's OV note with Dr Villarreal. Lorin Zhang LPN documented in this encounterGreen Cross Hospital10-16-2024 History of Present illness Narrative* Dereje Villarreal MD - 01/21/2024 9:30 AM EDT (Elements copied from my note dated October 22, 2023, have been reviewed and updated where appropriate, and all reflect current assessment and medical decision making from today's encounter, January) HISTORY OF PRESENT ILLNESS: Luther Castillo is a [address] Lopez's previous note: H/o refractory anemia who present [...] deficiency anemia, unspecified Prostate cancer (HCC) Dr. 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 Electronically Signed: Dereje Villarreal MD January 21, 2024 documented in this encounterGreen Cross Hospital09-24-2024 Telephone encounter Note * Telephone Encounter - Ashley Kramer LPN - 12/30/2023 2:35 PM EDT Phoned patient and went over results, notes from Catherine Peraza FULLER BRUSH MAN with understanding. [facility]09-24-2024 Miscellaneous Notes* Telephone Encounter - Ashley Kramer LPN - 12/30/2023 2:35 PM EDT Phoned patient and went over results, notes from Catherine Peraza FULLER BRUSH MAN with understanding. * Telephone Encounter - Ashley Kramer LPN - 12/30/2023 2:33 PM EDT ----- Message from Catherine Peraza APRN.REPRINT SORTER sent at 12/30/2023 2:09 PM EDT ----- Xray shows mild to moderate left hip arthritis. Would go ahead and do the PT and if not improving can have him see ortho. Catherine Peraza APRN.REPRINT SORTER documented in this encounterGreen Cross Hospital09-24-2024 Telephone encounter Note * Telephone Encounter - Ashley Kramer LPN - 12/30/2023 2:33 PM EDT ----- Message from Catherine Peraza APRN.REPRINT SORTER sent at 12/30/2023 2:09 PM EDT ----- Xray shows mild to moderate left hip arthritis. Would go ahead and do the PT and if not improving can have him see ortho. Catherien Peraza APRN.REPRINT SORTER [facility]09-18-20[facility] History of Present illness Narrative* Aimee [...] PATIENT PRESENTS WITH AN IMPLANTABLE OR ATTACHED SOFTWARE QUALITY ANALYST: No RADIOLOGY DEPARTMENT: General X-ray: Exam(s) Completed: Pelvis X-Ray: Pelvis with Hip Left PERIPHERAL IV DATA: Not applicable SIGNED BY: RT Teresita(R) December 24, 2023 11:58 AM documented in this encounterGreen Cross Hospital09-18-2024 History of Present illness Narrative* Catherine Peraza APRN.CNP - 12/24/2023 11:40 AM EDT 12/24/2023 Patient [...] deficiency anemia, unspecified Prostate cancer (HCC) Dr. 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 [...] Level: 4 - Moderate documented in this encounterGreen Cross Hospital09-11-2024 History of Present illness Narrative* Lorin Zhang LPN - 12/17/2023 12:03 PM EDT Patient here for an injection of Xgeva SQ in left arm and Aranesp SQ in right arm. Pt tolerated well. Lorin Zhang LPN documented in this encounterGreen Cross Hospital09-06-2024 Miscellaneous Notes* Telephone Encounter - Natalya Dorsey RN - 12/12/2023 2:29 PM EDT Call to patient, aware that Dr. Villarreal reviewed CT and Rx for Decadron sent to pharmacy. Dosingreviewed. Patient states understanding. Denies other concerns. Krista Dorsey RN * Telephone Encounter - Natalya Dorsey RN - 12/12/2023 1:[address] Villarreal reviewed scan. No concerning findings. Rx for Decadron po to be taken the am of injections. Krista Dorsey RN * Telephone Encounter - Natalya Dorsey RN - 12/11/2023 3:27 PM EDT Patient calls in and states that he went to [facility] ED. He states that after blood work, urinalysis, exam from physician, it was determined that the pain is not appendicitis. He was sent home. He states the pain is a little better this week but he is apprehensive about getting any more shots next week.He would like to know what Dr. Villarreal thinks about scans. Krista Dorsey RN * Telephone Encounter - Tee Ellis - 12/11/2023 9:34 AM EDT Called patient to review CT scans: mild acute appendicitis. Recommending ED for evaluation, abx, surgery consult. Pt acknowledged. Planning to go to [facility]. He reports pain is stable from last week. Not worsening. No fevers. No N/V. CT stable from cancer perspective. Tee Ellis APRN.REPRINT SORTER documented in this encounterGreen Cross Hospital09-06-2024 Telephone encounter Note * Telephone Encounter - Natalya Dorsey RN - 12/12/2023 2:29 PM EDT Call to patient, aware that Dr. Villarreal reviewed CT and Rx for Decadron sent to pharmacy. Dosingreviewed. Patient states understanding. Denies other concerns. Krista Dorsey RN [facility] Work Phone: 1(386) 504-126009-06-2024 Telephone encounter Note* Telephone Encounter - Natalya Dorsey RN - 12/12/2023 1:[address] Villarreal reviewed scan. No concerning findings. Rx for Decadron po to be taken the am of injections. Krista Dorsey RN [facility]09-05-2024 Telephone encounter Note* Telephone Encounter - Natalya Dorsey RN - 12/11/2023 3:27 PM EDT Patient calls in and states that he went to [facility] ED. He states that after blood work, urinalysis, exam from physician, it was determined that the pain is not appendicitis. He was sent home. He states the pain is a little better this week but he is apprehensive about getting any more shots next week.He would like to know what Dr. Villarreal thinks about scans. Krista Dorsey RN [facility]09-05-2024 Telephone encounter Note* Telephone Encounter - Tee Ellis - 12/11/2023 9:34 AM EDT Called patient to review CT scans: mild acute appendicitis. Recommending ED for evaluation, abx, surgery consult. Pt acknowledged. Planning to go to [facility]. He reports pain is stable from last week. Not worsening. No fevers. No N/V. CT stable from cancer perspective. Tee Ellis, DORIS.REPRINT SORTER [facility] Work Phone: [phone]) 620-551509-04-2024 History of Present illness Narrative* Debbie Galvin, RT(R) - 12/10/2023 3:20 PM EDT [...] PATIENT PRESENTS WITH AN IMPLANTABLE OR ATTACHED SOFTWARE QUALITY ANALYST: No ALLERGIES: Reviewed and unchanged CONTRAST ALLERGY: [...] 2023 TIME: 4:05 PM documented in this encounterGreen Cross Hospital08-30-2024 Telephone encounter Note * Telephone Encounter - Natalya Dorsey RN - 12/05/2023 4:22 PM EDT Spoke with patient/. Aware of instructions from Tee to go the ED if any new or increase in symptoms. Both state understanding. Krista Dorsey RN [facility] Work Phone: [phone]) 274-261608-30-2024 Miscellaneous Notes* Telephone Encounter - Natalya Dorsey RN - 12/05/2023 4:22 PM EDT Spoke with patient/. Aware of instructions from Tee to go the ED if any new or increase in symptoms. Both state understanding. Krista Dorsey RN * Telephone Encounter - Yaritza Carvajal - 12/05/2023 4:19 PM EDT Spoke with patient and scheduled CT. Transferred call to Soil Science Technical Officer for more instructions. Yaritza Carvajal * Telephone Encounter - Tee Ellis - 12/05/2023 2:05 PM EDT Prostate ca with known bone mets. Would not expect that reaction from either injection this far out. Ordered STAT CT a/p spine to assess. If pain is getting worse or causing numbness/tingling in legs should go to ED. Tee Ellis APRN.REPRINT SORTER * Telephone Encounter - Natalya Dorsey RN - 12/05/2023 1:33 PM EDT Care Coordination Triage Note [facility] Situation: Patient reports Other Pain Background: Disease, [...] 05, 2023 1:36 PM documented in this encounterGreen Cross Hospital08-30-2024 Telephone encounter Note * Telephone Encounter - Yaritza Carvajal - 12/05/2023 4:19 PM EDT Spoke with patient and scheduled CT. Transferred call to Soil Science Technical Officer for more instructions. Yaritza Carvajal [facility]08-30-2024 Telephone encounter Note* Telephone Encounter - Tee Ellis - 12/05/2023 2:05 PM EDT Prostate ca with known bone mets. Would not expect that reaction from either injection this far out. Ordered STAT CT a/p spine to assess. If pain is getting worse or causing numbness/tingling in legs should go to ED. Tee Ellis APRN.REPRINT SORTER [facility]08-30-2024 Telephone encounter Note* Telephone Encounter - Natalya Dorsey RN - 12/05/2023 1:33 PM EDT Care Coordination Triage Note [facility] Situation: Patient reports Other Pain Background: Disease, [...] Dorsey RN December 05, 2023 1:36 PM [facility]08-27-[facility] History of Present illness Narrative* Richie Dejesus MD - 12/02/2023 9:30 AM EDT CHIEF COMPLAINT: Patient presents with: Skin Check Last Dermatology Visit: [facility] - 11/27/2022 RELEVANT DERMATOLOGY HISTORY: Personal Hx of skin cancer: ~ basal cell CA - 8//, Mid Chest - ED&C ~ squamous cell [...] No date: Prostate cancer (HCC) Comment: Dr. 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 Wound care instructions provided, pt verbalizes understanding. Richie Dejesus MD The documentation for this note was partially completed by Narda Gay MA acting as scribe for Richie Dejesus MD. December 02, 2023 7:06 AM. I agree with the Chief Complaint, ROS, and Past Histories independently gathered by the clinical pit crew support worker and the remaining scribed note accurately describes my personal service to the patient. VEE Ghosh MD Return to clinic 4 mo ak recheck documented in this encounterGreen Cross Hospital08-27-2024 Instructions* Patient Instructions* Nancy John LPN [...] 3 to 4 weeks. documented in this encounterGreen Cross Hospital08-14-2024 History of Present illness Narrative* Lorin Zhang LPN - 11/19/2023 10:47 AM EDT Pt here for injection of Xgeva given SQ in right arm and Aranesp given SQ in left arm. Pt toleratedwell. Lorin Zhang LPN documented in this encounterGreen Cross Hospital08-12-2024 Telephone encounter Note * Telephone Encounter - Derrek Pham MA - 11/17/2023 7:32 AM EDTFrom: Luther Castillo To: Office of Sp Mckeon DO Sent: 11/15/2023 9:44 AM EDT Subject: Medication Renewal Request Refills have been requested for the following medications: tamsulosin (FLOMAX) 0.4 mg [Sp Mckeon DO] Preferred pharmacy: [id number] [place] [address] - [address] [phone] [address] [place] [address] Delivery method: P ickup [facility]08-12-2024 Miscellaneous Notes* Telephone Encounter - Derrek Pham MA - 11/17/2023 7:32 AM EDTFrom: Luther Castillo To: Office of Sp Mckeon DO Sent: 11/15/2023 9:44 AM EDT Subject: Medication Renewal Request Refills have been requested for the following medications: tamsulosin (FLOMAX) 0.4 mg [Sp Mckeon DO] Preferred pharmacy: [id number] [place] [address] - [address] [phone] [facility] [address] [address] Delivery method: P ickup documented in this encounterGreen Cross Hospital08-07-2024 History of Present illness Narrative* Sherri Santoyo, JONY - 11/12/2023 8:45 AM EDT RADIOLOGY SERVICE [...] PATIENT PRESENTS WITH AN IMPLANTABLE OR ATTACHED SOFTWARE QUALITY ANALYST: No CREATININE: Creatinine Date Value Ref Range [...] Discontinued PROCEDURE TYPE: NM Stress: 13 mCi Oz78b-Zdpxtcc was administered IV for Rest Imaging at 8:35 by mc.35 mCi Yt87s-Fittmzb was administered IV for Stress Imaging at 9:42 by mm. PATIENT DISCHARGED TO: Ambulatory patient, left NM department area. A Diagnostic radioactive procedure has taken place, with no further precautions necessary other than routine body substance precautions. More information regarding radiation safety can be found usingthis link: [email or web address] 20Diagnostic%20Nuclear%20Medicine%20Procedures.pdf SIGNATURE: JONY Farias PATIENT NAME: Luther Castillo DATE: November 12, 2023 TIME: 8:59 AM PAGER/CONTACT #: documented in this encounterGreen Cross Hospital08-07-2024 NoteHNO ID: [id number] Author: SHERRI SANTOYO CNMT Service: Radiology Author Type: Technologist Type: [...] PATIENT PRESENTS WITH AN IMPLANTABLE OR ATTACHED SOFTWARE QUALITY ANALYST: No CREATININE: Creatinine Date Value Ref Range [...] Discontinued PROCEDURE TYPE: NM Stress: 13 mCi Jj04k-Mgmubee was administered IV for Rest Imaging at 8:35 by . 35 mCi Xu82j-Ewnxial was administered IV for Stress Imaging at 9:42 by mm. PATIENT DISCHARGED TO: Ambulatory patient, left NM department area. A Diagnostic radioactive procedure has taken place, with no further precautions necessary other than routine body substance precautions. More information regarding radiation safety can be found using this link: [email or web address]-% 20Diagnostic%20Nuclear%20Medicine%20Procedures.pdf SIGNATURE: OJNY Farias PATIENT NAME: Luther Castillo DATE: November 12, 2023 TIME: 8:59 AM [id number] Telephone encounter Note * Telephone Encounter - Sahara Oswald RN - 11/11/2023 11:50 AM EDT Left message regarding reminder and instructions for stress test tomorrow. This included where to check in, length of test and no caffeine for 12 hours prior to test, [facility]08-06-2024 Miscellaneous Notes* Telephone Encounter - Sahara Oswald RN - 11/11/2023 11:50 AM EDT Left message regarding reminder and instructions for stress test tomorrow. This included where to check in, length of test and no caffeine for 12 hours prior to test, documented in this encounterGreen Cross Hospital08-06-2024 Telephone encounter Note * Telephone Encounter [...] Ferrer LPN November 11, 2023 7:59 AM [facility]08-06-20[facility] Miscellaneous Notes* Telephone Encounter - Abigail [...] 11, 2023 7:59 AM documented in this encounterGreen Cross Hospital07-17-2024 Nurse Note* Lorin Zhang LPN - 10/22/2023 9:37 AM EDT Pt here for injection of Xgeva and Aranesp. Given SQ in Left and Right arm respectivly. Pt tolerated well. For all other information regarding today, see today's OV note with Dr Villarreal. Lorin Zhang LPN [facility]07-17-20[facility] Nurse Note* Lorin Zhang LPN - 10/22/2023 9:37 AM EDT Pt here for injection of Xgeva and Aranesp. Given SQ in Left and Right arm respectivly. Pt tolerated well. For all other information regarding today, see today's OV note with Dr Villarreal. Lorin Zhang LPN documented in this encounterGreen Cross Hospital07-17-2024 History of Present illness Narrative* Dereje Villarreal MD - 10/22/2023 8:28 AM EDT (Elements copied from my note dated March 13, 2023, have been reviewed and updated where appropriate, and all reflect current assessment and medical decision making from today's encounter, October) HISTORY OF PRESENT ILLNESS: Luther Castillo is a [address] Lopez's previous note: H/o refractory anemia who present [...] BPH (benign prostatic hyperplasia) Elevated PSA Dr Mckeno Family history of malignant neoplasm of prostate 02/13/2017 Gastroesophageal reflux disease with esophagitis 10/09/2016 History of squamous cell carcinoma of skin 06/2017 left frontal scalp Iron deficiency anemia, unspecified Prostate cancer (HCC) Dr. 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 Electronically Signed: Dereje Villarreal MD October 22, 2023 documented in this encounterGreen [facility] Hospital07-11-[facility]24 Telephone encounter Note * Telephone Encounter - Gabi Douglas MA - 10/16/2023 3:44 PM EDT Please call pt to schedule Stress echo ordered today by Dr Romero. Follow up appointment already scheduled. [facility]07-11[facility] Miscellaneous Notes* Telephone Encounter - Gabi Douglas MA - 10/16/2023 3:44 PM EDT Please call pt to schedule Stress echo ordered today by Dr Romero. Follow up appointment already scheduled. documented in this encounterGreen Cross Hospital07-11-2024 NoteHNO ID: [id number] Author: DORCAS ROMERO, DO Service: ? Author Type: Physician Type: Progress Notes Filed: 10/16/2023 17:25 Note Text: [facility] SECTION OF REGIONAL CARDIOLOGY [facility] OUTPATIENT VISIT DATE October 16, 2023 PRIMARY CARE PHYSICIAN: Arsalan Lilly [address] [place] [address] HISTORY OF PRESENT ILLNESS: Mr. Castillo is [...] quadrant Actinic keratosis Al (more content not included)...[id number] History of Present illness Narrative* Dorcas Romero, - 10/16/2023 3:07 PM EDT Images from the original note were not included. [facility] SECTION OF REGIONAL CARDIOLOGY [facility] OUTPATIENT VISIT DATE October 16, 2023 PRIMARY CARE PHYSICIAN: Arsalan Lilly [address] [place] [address] HISTORY OF PRESENT ILLNESS: Mr. Castillo is [...] deficiency anemia, unspecified Prostate cancer (HCC) Dr. 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 Seborrheic [...] (Patient not taking: Reported on 10/16/2023) Dorcas Romero DO, FAC, FAC Slubber Machine Operator, [facility] Slubber Machine Operator, [facility] Slubber Machine Operator, [facility] Slubber Machine Operator, [facility] Slubber Machine Operator, [facility] Clinical Atmospheric Physicist Profressor of Medicine, [facility] Staff Rn Spine, Andressa Yeung Department of Cardiovascular Medicine/[facility] [place], [facility] Please note: This note has been produced using speech recognition software and may contain errors related to that system including mario, punctuation, spelling, words, gender and phrases that may be inappropriate. documented in this encounterGreen Cross Hospital06-28-2024 Telephone encounter Note * Telephone Encounter - Lorin Zhang LPN - 10/03/2023 2:05 PM EDT Rx request from pharmacy. Next scheduled apt with dept 10/21 last apt 03/13/23 Lorin Zhang LPN [facility]06-28-2024 Miscellaneous Notes* Telephone Encounter - Lorin Zhang LPN - 10/03/2023 2:05 PM EDT Rx request from pharmacy. Next scheduled apt with dept 10/21 last apt 03/13/23 Lorin Zhang LPN documented in this encounterGreen Cross Hospital06-27-2024 Nurse Note* Abigail Ferrer LPN - 10/02/2023 9:06 AM EDT Lupron injection administered, left buttock, tolerated well, no immediate adverse reactions noted. Abigial Ferrer LPN [facility]06-27-2024 Nurse Note* Abigail Ferrer LPN - 10/02/2023 9:06 AM EDT Lupron injection administered, left buttock, tolerated well, no immediate adverse reactions noted. Abigail Ferrer LPN documented in this encounterGreen Cross Hospital06-19-2024 History of Present illness Narrative* Lorin Zhang LPN - 09/24/2023 9:11 AM EDT Pt here for injection of Aranesp in the right arm and xgeva given SQ in the left arm. Pt tolerated well. Lorin Zhang LPN documented in this encounterGreen Cross Hospital06-05-2024 Telephone encounter Note * Telephone Encounter [...] CHRIS Goldsmith September 10, 2023 1:02 PM [facility]06-05-2024 Miscellaneous Notes* Telephone Encounter - Kiera [...] 10, 2023 1:02 PM documented in this encounterGreen Cross Hospital05-23-2024 Telephone encounter Note * Telephone Encounter - Natalya Dorsey RN - 08/28/2023 2:[address] Villarreal reviewed labs and ok with follow up in October. Krista Dorsey RN [facility] Work Phone: 1(533) 936-778505-23-2024 Miscellaneous Notes* Telephone Encounter - Natalya Dorsey RN - 08/28/2023 2:[address] Villarreal reviewed labs and ok with follow up in October. Krista Dorsey RN * Telephone Encounter - Yaritza Carvajal - 08/27/2023 10:32 AM EDT Spoke with patient when he was here and scheduled OV in October as Dr. Villarreal didn't have any availability on the same [...] you at this time. documented in this encounterGreen Cross Hospital05-22-2024 Telephone encounter Note * Telephone Encounter - Yaritza Carvajal - 08/27/2023 10:32 AM EDT Spoke with patient when he was here and scheduled OV in October as Dr. Villarreal didn't have any availability on the same day as his September injection appointment. Is this acceptable? Yaritza Carvajal [facility]05-22-2024 Telephone encounter Note* Telephone Encounter - Natalya Dorsey RN - 08/27/2023 9:32 AM EDT Per Epic appointment notes, patient due OV in September. Krista Dorsey, ERIN [facility]05-22-2024 Telephone encounter Note* Telephone Encounter - Lorin Zhang LPN - 08/27/2023 9:15 AM EDT Pt states every time he has needed the aranesp injection he feels terrible for at least 3 days after. Headaches and fatigue, no initiative to do much. He does not have a f/u scheduled with you at this time. [facility]04-30-2024 Telephone encounter Note* Telephone Encounter - Gabbi Ugarte - 08/05/2023 9:41 AM EDT Pt read MC message. [facility]04-30-2024 Miscellaneous Notes* Telephone Encounter - Gabbi Ugarte - 08/05/2023 9:41 AM EDT Pt read MC message. * Telephone Encounter - Gabbi Ugarte - 08/04/2023 10:[address] Mcfarlane appt cancelled and rescheduled to soonest in [place]. 1st attempt to notify pt, LVM and sent MC message. documented in this encounterGreen Cross Hospital04-29-2024 Telephone encounter Note * Telephone Encounter - Gabbi Ugarte - 08/04/2023 10:[address] Denys hooks cancelled and rescheduled to soonest in [place]. 1st attempt to notify pt, LVM and sent MC message. [facility]04-25-[facility] Nurse Note* Lorin Zhang LPN - 07/31/2023 9:23 AM EDT Patient here for injection of Xgeva, given SQ in left arm. Pt denies any jaw or tooth pain. Aranespinj given in right arm Pt tolerated well. Lorin Zhang LPN [facility]04-25-[facility] Nurse Note* Lorin Zhang LPN - 07/31/2023 9:23 AM EDT Patient here for injection of Xgeva, given SQ in left arm. Pt denies any jaw or tooth pain. Aranespinj given in right arm Pt tolerated well. Lorin Zhang LPN documented in this encounterGreen Cross Hospital03-14-2024 Miscellaneous Notes* Telephone Encounter - Natalya [...] 8:27 AM EDT Received call back from [facility]. Patient was in his office and had an exam on 06/04/23, the day before in our office stating jaw pain for the past week. Dr. Christian does not think patient has any contraindication to receive more Xgeva. Krista Dorsey RN * Telephone Encounter - Natalya Dorsey RN - 06/16/2023 12:56 PM EDT Call to [facility], explained to warp tester that patient needs dental evaluation for jaw [...] with patient. He sees Dr. Roberts at [facility] in [place]. [phone]. He is aware that we will contact [...] they would email xray results. RNCC aware. Sahaar Mcneill LPN * Telephone Encounter - Natalya Dorsey RN - 06/06/2023 12:00 PM EST Call to patient, states he would like to know what x-ray he needs to have and then he can call backto his dentist and let them know what we are asking them to do. He is aware that Dr. Villarreal is out of office until 06/10/23 and [...] 06/06/2023 10:59 AM EST Patient states Dr. Villarreal informed him to have an xray of his jaw. He spoke with his dentist, who referred him to an oral surgeon. Oral surgeon was unsure of what was needed and stated a hospitalcould do xray and be covered by his medical insurance. I do not see any orders in [email or web address]. Patient is asking to speak to clinical. documented in this encounterGreen Cross Hospital03-12-2024 Miscellaneous Notes* Telephone Encounter - Yaritza [...] PM EDT ----- Message from Catherine Peraza APRN.REPRINT SORTER sent at 06/17/2023 1:46 PM EDT ----- Stress testing was normal. Catherine Peraza APRN.REPRINT SORTER documented in this encounterGreen Cross Hospital03-12-2024 Miscellaneous Notes* Telephone Encounter - Antoinette [...] you. Antoinette Martini LPN. documented in this encounterGreen Cross Hospital03-11-2024 Miscellaneous Notes* Telephone Encounter - Sahara Oswald RN - 06/16/2023 2:17 PM EDT Spoke with patient regarding reminder for stress test tomorrow and given instructions. documented in this encounterGreen Cross Hospital03-06-2024 Miscellaneous Notes* Telephone Encounter - Kiera Luna OCCA - 06/11/2023 4:57 PM EST TC to patient who verbalized understanding of providers message and has no questions at this time. CHRIS Goldsmith * Telephone Encounter - Kiera Luna OCCA - 06/11/2023 4:55 PM EST ----- Message from Arsalan Lilly MD sent at 06/11/2023 4:51 PM EST [...] Total Cholesterol: 161 mg/dL documented in this encounterGreen Cross Hospital03-06-2024 History of Present illness Narrative* Aimee [...] PATIENT PRESENTS WITH AN IMPLANTABLE OR ATTACHED SOFTWARE QUALITY ANALYST: No RADIOLOGY DEPARTMENT: General X-ray: Exam(s) Completed: Chest X-Ray PERIPHERAL IV DATA: Not applicable SIGNED BY: RT Teresita(R) June 11, 2023 11:25 AM documented in this encounterGreen Cross Hospital03-06-2024 History of Present illness Narrative* Catherine Peraza APRN.REPRINT SORTER - 06/11/2023 10:06 AM EST 06/11/2023 Patient presents with: Discussion: Oncology Dr. Villarreal encouraged patient to discuss stress test with [...] deficiency anemia, unspecified Prostate cancer (HCC) Dr. 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 [...] Level: 4 - Moderate documented in this encounterGreen Cross Hospital02-29-2024 History of Present illness Narrative* Lorin Zhang LPN - 06/05/2023 10:04 AM EST Xgeva held due to some jaw pain earlier this week. Dr Villarreal aware. Instructed Dental x-rays and follow up with PCP for SOB during his daily walks. See phone note to PCP. Aranesp given SQ in right arm for Hgb of 9.9 Lorin Zhang LPN documented in this encounterGreen Cross Hospital02-01-2024 History of Present illness Narrative* Lorin Zhang LPN - 05/08/2023 9:32 AM EST Pt here for injection of Xgeva. Given SQ in left arm. Pt tolerated well. Aranesp injection deferred. Pt did not meet treatment parameters. Hgb 10.2 Lorin Zhang LPN documented in this encounterGreen Cross Hospital12-13-2023 Miscellaneous Notes* Telephone Encounter - Catherine Peraza APRN.JOI - 03/19/2023 12:39 PM EST I my chart messaged patient to let him know the fast was long enough. He should start the medicine and recheck labs in 3 months. Catherine Peraza APRN.REPRINT SORTER * Telephone Encounter - Derrek Naqvi RN - 03/18/2023 12:18 PM EST Pt called and is notified of providers results and instructions. Pt voices understanding. Pt had sent a [employer] message on 03/17/23 stating, Dr. Lilly's office called me today and prescribed medication [...] high cholesterol? Thanks. Let Pt know that heshould have been fine with his fasting time as it says fast for 10-12 hours prior to lab. Pt just wanted to make sure this was ok with provider. Derrek Naqvi RN * Telephone Encounter - Arsalan Lilly MD - 03/18/2023 11:43 AM EST Rx [...] on. Patient requesting medication be sent to [facility] ([address] * Telephone Encounter - Kiera Luna OCCA - 03/17/2023 3:40 PM EST ----- Message from Arsalan Lilly MD sent at 03/17/2023 2:14 PM EST [...] Total Cholesterol: 214 mg/dL documented in this encounterGreen Cross Hospital12-12-2023 Miscellaneous Notes* Telephone Encounter - Derrek Naqvi RN - 03/18/2023 12:19 PM EST Added to TE from 03/17/23. * Telephone Encounter - Mariangel Baum Ma - 03/17/2023 5:46 PM EST See pt mychart message. documented in this encounterGreen Cross Hospital12-11-2023 Miscellaneous Notes* Telephone Encounter - Gabi [...] - 03/14/2023 12:[address] Villarreal, Aranesp is Qmonth. He ask that we adjust the dates within [place]. Krista Dorsey RN * Telephone Encounter - [...] pt.. Will need to clarify with Dr. Villarreal . Abigail Ferrer LPN * Telephone Encounter - Natalya Dorsey RN - 03/13/2023 3:35 PM EST Images from the original note were not included. Call to patient and aware of above. Questions answered. Appointment notes changed. Krista Dorsey RN documented in this [facility]12-07-2023 Nurse Note* Lorin Zhang LPN - 03/13/2023 10:04 AM EST Pt here for injection of Faslodex. Given IM in B/L buttocks. Pt tolerated well. For all other information regarding today, see today's OV note with Dr Villarreal. Lorin Zhang LPN documented in this [facility]11-14-2023 Miscellaneous Notes* Telephone Encounter - Abigail [...] patient. Abigail Ferrer LPN documented in this [facility]11-09-2023 History of Present illness Narrative* Lorin Zhang LPN - 02/13/2023 10:37 AM EST Pt here for injection of Xgeva. Given sq in left arm. Pt tolerated well. Lorin Zhang LPN documented in this [facility]10-12-2023 Nurse Note* Lorin Zhang LPN - 01/16/2023 9:33 AM EDT Pt here for injection of Xgeva. Given sq in left arm. Pt tolerated well. Lorin Zhang LPN documented in this [facility]10-10-2023 Miscellaneous Notes* Telephone Encounter - Lorin Zhang LPN - 01/14/2023 3:43 PM EDT Rx pended. Lorin Zhang LPN documented in this encounterGreen Cross Hospital09-14-2023 History of Present illness Narrative* Lorin Zhang LPN - 12/19/2022 9:47 AM EDT Pt here for injection of Xgeva. Given SQ in right arm. Pt tolerated well. Lorin Zhang LPN documented in this encounterGreen Cross Hospital08-28-2023 History of Present illness Narrative* Derrek Baker PA-C - 12/02/2022 6:09 AM EDT HISTORY AND PHYSICAL Luther Duganetler 1955 REFERRING PHYSICIAN: Arsalan Lilly,* CHIEF COMPLAINT: Thrombosed hemorrhoid HPI: Luther is [...] nurse and reviewed by me Nursing Notes: Marilin Melvin LPN 11/19/2022 1:27 [...] exam deferred Other: Perianal examination performed with freezing room worker present. +external hemorrhoids and small perianal cyst [...] (K62.89) Perianal cyst Consultation requested by Dr. Lilly for an opinion regarding hemorrhoid. My final recommendationswill be communicated back to the requesting physician by way of shared Medical record or letter to requesting physician via US mail. Derrek Baker PA-C documented in this encounterGreen Cross Hospital08-23-2023 Instructions* Patient Instructions* Richie Dejesus MD [...] 3 to 4 weeks. documented in this encounterGreen Cross Hospital08-23-2023 History of Present illness Narrative* Richie [...] in apparent distress Luther Castillo Medical Record: [id number] Date: 11/27/2022 Procedure: Cryosurgery The risks, benefits [...] by Priya Moe LPN acting as scribe Mukesh Dejesus MD. November 27, 2022 7:40 AM. I agree with the Chief Complaint, ROS, and Past Histories independently gathered by the clinical pit crew support worker and the remaining scribed note accurately describes my personal service to the patient. Priya Dejesus MD Return to clinic yearly for skin check documented in this encounterGreen Cross Hospital08-17-2023 Nurse Note* Lorin Zhang LPN - 11/21/2022 9:40 AM EDT Pt here for injection of Xgeva. Given sq in right arm. Pt tolerated well. documented in this encounterGreen Cross Hospital08-16-2023 Miscellaneous Notes* Telephone Encounter - Sanjeev [...] 1:46 PM EDT Doesn't look like Dr. Lilly fill this medication. Will route to ordering provider. Catherine Peraza APRN.CNP * Telephone Encounter - Sarah Lemus LPN - 11/20/2022 9:16 AM EDT Patient has been identified by name and date of : Yes, Provider Dr. Lilly Date 11/20/22 Time 9:17 am Pharmacy phones [...] you. Sarah Lemus LPN documented in this encounterGreen Cross Hospital08-15-2023 Instructions* Patient Instructions* Derrek Baker PA-C - 11/19/2022 2:01 PM EDT -Continue Anusol cream for an additional week -Recommend fiber supplement, plenty of fluids, keep bowel movements soft and regular -Follow up if lump enlarges or becomes tender documented in this encounterGreen Cross Hospital08-15-2023 Nurse Note* Marilin Melvin LPN - [...] 2021 Marilin Melvin LPN documented in this encounterGreen Cross Hospital07-20-2023 Nurse Note* Lorin Zhang LPN - 10/24/2022 9:32 AM EDT Pt here for injection of xgeva. Given sq in left arm. Pt tolerated well. Lorin Zhang LPN documented in this [facility]07-10-2023 Nurse Note* Lorin Zhang LPN - 10/14/2022 9:24 AM EDT Pt here for injection of Lupron. Given IM in right buttocks. Pt tolerated well. Lorin Zhang LPN documented in this encounterGreen Cross Hospital06-26-2023 Miscellaneous Notes* Telephone Encounter - Lexie Gambino Ma - 09/30/2022 4:12 PM EDT Imm updated, pt made aware. Lexie Gambino Ma documented in this [facility]06-22-2023 History of Present illness Narrative* Lorin Zhang LPN - 09/26/2022 9:58 AM EDT Pt here for injection of xgeva. Given sq in right arm. Pt tolerated well. Lorin Zhang LPN documented in this [facility]06-19-2023 Hospital Discharge instructions Patient Education 09/23/2022 [...] affected hand Decreased movement of the hand [id number] [employer]. [address] [place] [address]. All rights reserved. This information is not intended as a substitute for professional medical care. Always follow yourhealthcare professional's instructions. Follow Up Care 09/23/2022 13:48:52 With:ARSALAN LILLY MD Address: [address] [place] [address]- When:2-4 days [facility] 06-19-2023 Note Discharge Instructions Thank you for allowing [place] to assist you with your healthcare needs. [...] the Following Appointments Follow Up with ARSALAN LILLY MD When Within 2-4 days Where: [address] [place] [id number]- Allergies NKA Immunizations This Visit Given [...] affected hand Decreased movement of the hand [id number] [employer]. [address] [place] [address]. All rights reserved. This information is not intended as a substitute for professional medical care. Always follow yourhealthcare professional's instructions. Additional Information VACCINATE! IT SAVES LIVES! Members of the community who have not yet received the COVID-19 vaccine and would like to receive it can visit one of [facility] vaccine clinics. There are many vaccine clinic locations within the [facility]. For locations and available times, please visit www.gettheshot.coronavirus.[place].gov/. It is important to note that some COVID mobile vaccine clinics are held outdoors and may be canceled in rainy or stormy conditions. To learn more about pediatric vaccinations (ages 5-11), we invite you to visit the [facility] webpage. [email or web address]/pages/0487-Mnppf-Lvbnounymht-Bmbbrdwohr-Teacn-Yoq stions.htmlTo learn more about the COVID-19 vaccine, we invite you to visit the CDC website for a list of frequently asked questions. https://www.cdc.gov/coronavirus/2019-ncov/vaccines/faq.html [facility] Patient Portal Access Instructions: Stay connected with your healthcare team and access your personal medical information anytime with the [facility] [facility] [facility] Patient Portal. If you would like a full copy of your medical records please contact the [facility] Medical Records Department Friday through Friday between 8a.m. and 4:30p.m. Please follow the directions below to access the portal: 1.Access the email account you provided upon registration to the [facility].2.Look for an invitation email from [facility].3.Open the email and access the invitation link: Accept Invitation to [facility] [facility]4.Fill in the required savage to create your account. Sign into www.[email or web address] ([email or web address]) with your username and password that you [...] you will allow to register on the [place] [facility] [facility] Patient Portal for access to your information. You can also access the [facility] Patient Portal on the [employer] manjeet. Simply click on Health Records under [employer] and then click on the [employer] logo. [...] Call your local pharmacy or go to http://bit.Wipit/6C1Tj2i to find one close to you.3.Make use of household items: Use cat litter or old coffee grounds to dispose medications if other options arenot available. Mix your drugs with these household products, seal them in an airtight container andthrow it into the garbage. Call [facility]: [phone] to be sure your drugs can be [...] aware that I should contact my doctor. Patient/Helpdesk Manager Signature: Date/Time: Relationship to Patient: Witness Name/Signature: Date/Time: [facility]06-19-2023 Note ORIGINAL EXAMINATION: THREE XRAY VIEWS [...] Sign Date: 09/23/2022 3:18:15 PM Ordering Provider: [facility]06[facility]19-[facility] Note ORIGINAL EXAMINATION: THREE XRAY VIEWS OF [...] Sign Date: 09/23/2022 3:18:15 PM Ordering Provider: [facility]05-15-2023 Miscellaneous Notes* Telephone Encounter - Nicole Parr - 08/19/2022 1:27 PM EDT The below PSA has been added in 3 months. All others scheduling was done on Friday at check-out Nicole Parr * Telephone Encounter - Sanjeev Aranda APRN.CNP - 08/19/2022 12:57 PM EDT Please add PSA every three months. See AVS from FridayAugust 16. Thank you. Sanjeev Aranda APRN.CNP documented in this encounterGreen Cross Hospital05-12-2023 History of Present illness Narrative* Sanjeev Aranda APRN.CNP - 08/16/2022 11:20 AM EDT Chief Complaint Patient presents with: Established Patient HPI: Luther Castillo is a 67 year old male who presents here today for follow up prostate cancer/anemia. Per Dr. Lopez's previous note: H/o refractory anemia who present [...] confirmed metastatic disease. Biopsy of prostate confirmed Nowata 7, prostate cancer. He started androgen deprivation [...] 1.00 - 4.00 k/uL 1.46 2.22 2.26 [place]% % 3.8 8.2 8.7 Abs [place] <0.87 k/uL 0.23 0.47 0.46 Eosin% % [...] 238.72, ICD10: D46.0 Metastatic prostate cancer (M1) Nowata score 7 & PSA 27; low-volume bone metastasis and no visceral metastasis. - No new concerning findings on exam. - Tolerating zytiga/pred/eliguard/xgeva well overall. - Reviewed labs with pt. and spouse. - Continue Zytiga and prednisone. - Monitor PSA. - Please reschedule monthly xgeva/eliguard every 6 months to be done here in [place] (Has been getting them in [place]). - Follow up with Urology as scheduled. - Follow up with Dr. Villarreal in 6 months with CBC/CMP/PSA. - Pt. aware to call office with any questions/concerns. The patient indicates understanding of these issues and agrees with the plan. All documentation from previous visit of 02/14/22-Dr. Lopez was copied and pasted, documentation has been reviewed and edited as necessary for today's visit. Sanjeev Aranda APRN.JOI documented in this encounterGreen Cross Hospital05-08-2023 Miscellaneous Notes* Telephone Encounter - Abigail [...] patient. Abigail Tyson LPN documented in this encounterGreen Cross Hospital04-27-2023 Nurse Note* Stephanie Duron RN - 08/01/2022 10:16 AM EDT The patient is here for an injection of Xgeva Dose: 120 mg Route: Subcutaneous Lot# [id number] Expiration date 06-04-2024 Given without incident. Site: right upper quadrant abdomen Dr. Mckeon present in clinic at time of injection. The date due for the next injection is 1 month Patient education was given by nurse. Stephanie Duron RN documented in this encounterGreen Cross Hospital02-23-2023 Nurse Note* Luther Arthur RN - 05/30/2022 10:10 AM EST The patient is here for an injection of Prolia Dose: 60mg/1ml Calcium, Total Date Value Ref Range Status 02/12/2022 9.1 8.5 - 10.2 mg/dL Final Last Office Visit was 04/26/2022 Route: Subcutaneous Given without incident Site: left arm Lot number [id number] Expiration Date 06/04/2024 Dr. mckeon present in clinic at time of injection The date due for the next injection is 1 month Luther Arthur RN 8:30 AM June 14, 2022 documented in this [facility]02-10-2023 Instructions* Patient Instructions* Richie Dejesus MD [...] 3 to 4 weeks. documented in this encounterGreen Cross Hospital02-10-2023 History of Present illness Narrative* Richie Dejesus MD - 05/17/2022 2:00 PM EST Cryosurgery of non-malignant lesion(s) HPI: Patient is here for cryosurgery Patient is alert oriented 3 not in apparent distress Luther Castillo Medical Record: [id number] Date: 05/17/2022 Procedure: Cryosurgery The risks, benefits [...] MD RTC 6 months documented in this encounterGreen Cross Hospital02-01-2023 Miscellaneous Notes* Telephone Encounter - LIZANDRO [...] management, based on this result. Please see [employer] message for further discussion. LIZANDRO La Licensed, Certified Genetic Counselor documented in this encounterGreen Cross Hospital01-20-2023 NoteHNO ID: [id number] Author: Sp Mckeon, DO Service: ? Author Type: Physician Type: Progress Notes Filed: 05/07/2022 2:46 PM Note Text: [facility] LOCATION: [address] [place] [address] ESTABLISHED PATIENT PATIENT INFO: Luther Castillo 67 [...] (8 mm tumor length). - Percentage of Nowata pattern 4 = 20%. - Expansile cribriform morphology is present. B. PROSTATE, BIOPSY, RIGHT MID: Prostatic adenocarcinoma, Nowata score 4+3=7 (Grade group 3), involving 90% of one core (10 mm tumor length). - Percentage of Nowata pattern 4 = 90%. - Expansile cribriform morphology is present. C. PROSTATE, BIOPSY, RIGHT APEX: Prostatic adenocarcinoma, Nowata score 3+4=7 (Grade group 2), involving 35% of one core (3 mm tumor length). - Percentage of Nowata pattern 4 = 5%. - Cribriform morphology is absent. D. PROSTATE, BIOPSY, RIGHT LATERAL BASE: High-grade prostatic intraepithelial neoplasia. E. PROSTATE, BIOPSY, RIGHT LATERAL MID: Prostatic adenocarcinoma, Nowata score 3+4=7 (Grade group 2), involving 85% of one core (10 mm tumor length). - Percentage of Rasheed pattern 4 = 10%. - Definitive cribriform morphology is absent. F. PROSTATE, BIOPSY, RIGHT LATERAL APEX: Prostatic adenocarcinoma, Nowata score 3+4=7 (Grade group 2), involving 50% of one core (6.5 mm tumor length). - Percentage of Nowata pattern 4 = 5%. - Cribriform morphology [...] 50.5 Lymph% (%) Date Value 02/12/2022 38.7 Fillmore% (%) Date Value 02/12/2022 8.2 Eosin% (%) Date Value 05/28/2021 1.5 Baso% (%) Date Value 02/12/2022 0.5 Abs Neut (k/uL) Date Value 02/12/2022 2.89 Abs Fillmore (k/uL) Date Value 02/12/2022 0.47 Abs Eosin (k/uL) Date Value 02/12/2022 0.11 Abs Baso (k/uL) Date Value 02/12/2022 0.03 Creatinine Date Value Ref Range Status 02/12/2022 0.98 0.73 - 1.22 mg/dL Final 11/20/2021 1.05 0.73 - 1.22 mg/dL Final 08/24/2021 0.98 (more content not included)...[facility] 04-26-2022 History of Present illness Narrative* Sp Mckeon, - 04/26/2022 11:41 AM EST Images from the original note were not included. [facility] LOCATION: [address] [place] [address] ESTABLISHED PATIENT PATIENT INFO: Luther Castillo 67 [...] subsequentlyconfirmed metastatic disease. Biopsy of prostate confirmed Rasheed [...] A. PROSTATE, BIOPSY, RIGHT BASE: Prostatic adenocarcinoma, Nowata score 3+4=7 (Grade group 2), involving 60% of one core (8 mm tumor length). - Percentage of Nowata pattern 4 = 20%. - Expansile cribriform morphology is present. B. PROSTATE, BIOPSY, RIGHT MID: Prostatic adenocarcinoma, Rasheed score 4+3=7 (Grade group 3), involving 90% of one core (10 mm tumor length). - Percentage of Rasheed pattern 4 = 90%. - Expansile cribriform morphology is present. C. PROSTATE, BIOPSY, RIGHT APEX: Prostatic adenocarcinoma, Nowata score 3+4=7 (Grade group 2), involving 35% of one core (3 mm tumor length). - Percentage of Rasheed pattern 4 = 5%. - Cribriform morphology is absent. D. PROSTATE, BIOPSY, RIGHT LATERAL BASE: High-grade prostatic intraepithelial neoplasia. E. PROSTATE, BIOPSY, RIGHT LATERAL MID: Prostatic adenocarcinoma, Nowata score 3+4=7 (Grade group 2), involving 85% of one core (10 mm tumor length). - Percentage of Rasheed pattern 4 = 10%. - Definitive cribriform morphology is absent. F. PROSTATE, BIOPSY, RIGHT LATERAL APEX: Prostatic adenocarcinoma, Rasheed score 3+4=7 (Grade group 2), involving 50% of one core (6.5 mm tumor length). - Percentage of Nowata pattern 4 = 5%. - Cribriform morphology is absent. G. PROSTATE, BIOPSY, LEFT BASE: Prostatic adenocarcinoma, Nowata score 3+3=6 (Grade group 1), involving 4% [...] 50.5 Lymph% (%) Date Value 02/12/2022 38.7 Fillmore% (%) Date Value 02/12/2022 8.2 Eosin% (%) Date Value 05/28/2021 1.5 Baso% (%) Date Value 02/12/2022 0.5 Abs Neut (k/uL) Date Value 02/12/2022 2.89 Abs Fillmore (k/uL) Date Value 02/12/2022 0.47 Abs Eosin [...] new diagnosis of metastatic prostate cancer (M1) Nowata score 7 & PSA 27; low-volume bone metastasis and no visceral metastasis. -Continue Zytiga 1,000mg in the morning & prednisone 5mg twice daily. -Continue Eligard every 6 months and denosumab monthly for bone metastasis -Continue Flomax I spent 30 minutes in the visit, with more than 50% of the total ugmz-ou-dodr time of the visit in counseling / coordination of care. Sp Mckeon DO MBA documented in this encounterGreen Cross Hospital01-18-2023 Miscellaneous Notes* Telephone Encounter - Lillian Lopez MD - 04/24/2022 6:59 AM EST Patient's request for medication is as follows Requested Prescriptions Signed Prescriptions Disp Refills predniSONE (DELTASONE) 5 mg tablet 60 tablet 2 Sig: Take 1 tablet by mouth twice daily. Order entered - please phone pharmacy and notify patient. Lillian Lopez MD documented in this encounterGreen Cross Hospital01-11-2023 Miscellaneous Notes* Telephone Encounter - Lillian Lopez MD - 04/17/2022 12:39 PM EST Patient's request for medication is as follows Requested Prescriptions Signed Prescriptions Disp Refills predniSONE (DELTASONE) 5 mg tablet 60 tablet 2 Sig: Take 1 tablet by mouth twice daily. Authorizing Provider: LILLIAN LOPEZ Order entered - please phone pharmacy and notify patient. Lillian Lopez MD documented in this encounterGreen Cross Hospital12-15-2022 Nurse Note* Luther Arthur RN - 03/21/2022 3:56 PM EST Prior auth verified Patient labs reviewed No contraindications identified 03/21/2022 Lot: [id number] Expiration date: 01/2024 Administration location: abdomen left upper Patient education and follow up on AVS Next due date 1 month documented in this encounterGreen Cross Hospital12-02-2022 History of Present illness Narrative* Derrek [...] FOLLOW UP VISIT - [id number] DATE OF SERVICE: 03/08/2022 : 1955 REFERRING PHYSICIAN: Arsalan Lilly MD Luther is a patient I am [...] lifestyle modifications as discussed Consider adding carafate ckssp-uhcd-rqytozi will check with Dr. Jessica guy Patient verbalized understanding of all above and [...] patient/family/caregiver. Derrek Baker PA-C documented in this [facility]11-30-2022 Miscellaneous Notes* Telephone Encounter - Mariangel Baum Ma - 03/06/2022 12:08 PM EST Pt notified and voiced understanding. Mariangel Baum Ma * Telephone Encounter - Mariangel Baum Ma - 03/06/2022 12:07 PM EST ----- Message from Arsalan Lilly MD sent at 03/06/2022 11:25 AM EST ----- Stomach and esophagus biopsy showed gastritis without cancer or dysplasia. H pylori negative. F/u with Derrek Baker as scheduled. documented in this [facility]11-[facility] Nurse Note* Lilibeth Stanton, ERIN - 02/27/2022 9:42 AM EST Pt received in PACU. Pt mildly drowsy, but arouses very easily. Denies pain or nausea. Abd soft andnon distended. Lilibeth Stanton RN documented in this [facility]11-23-[facility]22 History and physical note * Lyn [...] PHYSICAL Luther Castillo 1955 REFERRING PHYSICIAN: Arsalan Lilly,* CHIEF COMPLAINT: Consult (Colonoscopy consult, last colon [...] metastatic prostate cancer. Patient follows with Dr. Lopez in hem/onc and Dr. Lilly in primary care. Patient denies chest pain, [...] entered by the nurse and reviewed by va Nursing Notes: Harika Cortez RN 01/25/2022 9:53 [...] patient was offered a surgery[facility]. I have counseled the patient [...] Prostate cancer (HCC) Consultation requested by Dr. Lilly for an opinion regarding surveillance colonoscopy. My final recommendations will be communicated back to the requesting physician by way of shared Medical recordor letter to requesting physician via [place] mail. Derrek Baker PA-C * Lyn Mcgowan MD - 02/27/2022 9:00 AM EST HISTORY AND PHYSICAL Luther Castillo 1955 REFERRING PHYSICIAN: Arsalan Lilly,* CHIEF COMPLAINT: Consult (Colonoscopy consult, last colon [...] metastatic prostate cancer. Patient follows with Dr. Lopez in hem/onc and Dr. Lilly in primary care. Patient denies chest pain, [...] patient was offered a surgery/procedure at a [facility] facility. I have counseled the patient [...] Prostate cancer (HCC) Consultation requested by Dr. Lilly for an opinion regarding surveillance colonoscopy. My final recommendations will be communicated back to the requesting physician by way of shared Medical recordor letter to requesting physician via US mail. Derrek Baker PA-C documented in this encounterGreen Cross Hospital11-17-2022 Nurse Note* Stephanie Duron RN - 02/21/2022 10:02 AM EST The patient is here for an injection of Xgeva Dose: 120 mg Route: Subcutaneous Lot# [id number] Expiration date [facility]: 43108-945-48 Given without incident. Site: left arm Dr. Snow present in clinic at time of injection. The date due for the next injection is 1 month Patient education was given by nurse. Stephanie Duron RN documented in this encounterGreen Cross Hospital11-10-2022 History of Present illness Narrative* Lillian Lopez MD - 02/14/2022 10:26 AM EST PATIENT NAME: Luther Castillo. CLINIC NO: [id number]. ATTENDING PHYSICIAN: Lillian Lopez MD. DATE OF SERVICE: 02/14/2022. DIAGNOSIS: Metastatic [...] Abs Lymph 1.00 - 4.00 k/uL 2.22 Fillmore% % 8.2 Abs Fillmore <0.87 k/uL 0.47 Eosin% % 1.9 Abs [...] new diagnosis of metastatic prostate cancer (M1) Nowata score 7 & PSA 27; low- volume [...] with more than 50% of the total zkyg-to-fwde time of the visit in counseling / coordination of care. Portions of this documentation were copied and pasted from previous office visit notes in order to provide a cohesive continuity of the history. The note has been reviewed and edited and updated as necessary. Lillian Lopez MD Cc: MD Sp Scott, documented in this encounterGreen Cross Hospital10-17-2022 Miscellaneous Notes* Telephone Encounter - Lillian Lopez MD - 01/21/2022 8:17 AM EDT Patient's request for medication is as follows Requested Prescriptions Signed Prescriptions Disp Refills predniSONE (DELTASONE) 5 mg tablet 60 tablet 2 Sig: TAKE 1 TABLET BY MOUTH TWICE DAILY Authorizing Provider: LILLIAN LOPEZ Order entered - please phone pharmacy and notify patient. Lillian Lopez MD documented in this encounterGreen Cross Hospital09-08-2022 Nurse Note* Stephanie Duron RN - 12/13/2021 2:49 PM EDT The patient is here for an injection of Xgeva Dose: 120 mg Route: Subcutaneous Lot# [id number] Expiration date [facility]: 68727-715-16 Given without incident. Site: left arm and right arm Dr. Mckeon present in clinic at time of injection. The date due for the next injection is 1 month Patient education was given by nurse. Stephanie Duron RN documented in this encounterGreen Cross Hospital08-19-2022 Instructions* Patient Instructions* Jessy Chase RN [...] 3 to 4 weeks. documented in this encounterGreen Cross Hospital08-19-2022 History of Present illness Narrative* Richie Dejesus MD - 11/23/2021 9:30 AM EDT Patient presents with: Full Body Skin Check RELEVANT DERMATOLOGY HISTORY: Personal Hx of skin cancer: ~ basal cell CA - 11/07/20, Mid Chest - ED&C ~ squamous cell CA - 06/22, Left Frontal Scalp - Mohs Personal Hx [...] in apparent distress Luther Castillo Medical Record: [id number] Date: 11/23/2021 Procedure: Cryosurgery The risks, benefits and anticipated outcomes of the procedure, the risks and benefits of the alternatives to the procedure and the roles and tasks of the personnel to be involved were discussed with the patient and the patient consents to the procedure and agrees to proceed. I verify that I personally obtained Luther Collin Jonathan's consent. Richie Dejesus MD Dept of DERMATOLOGY [...] Past Histories independently gathered by the clinical pit crew support worker and the remaining scribed note accurately describes my personal service to the patient. Judit Dejesus MD Return to clinic 6 months documented in this encounterGreen Cross Hospital08-11-2022 Nurse Note* Luther Arthur RN - 11/15/2021 10:48 AM EDT Patient present for Xgeva injection 120mg injected into left upper arm subcutaneously. Lot #[id number] Exp 08/2023 documented in this encounterGreen Cross Hospital08-09-2022 History of Present illness Narrative* Arsalan Lilly MD - 11/13/2021 9:06 AM EDT Chief [...] Lymph 1.00 - 4.00 k/uL 1.65 1.22 Fillmore% % 7.2 6.1 Abs Fillmore <0.87 k/uL 0.34 0.50 Eosin% % 1.5 [...] Z12.11 - CONSULT TO GENERAL SURGERY Arsalan Lilly MD documented in this encounterGreen Cross Hospital07-07-2022 Nurse Note* Luther Arthur RN - 10/11/2021 9:23 AM EDT The patient is here for an injection of Xgeva Dose: 60mg/1ml Calcium, Total Date Value Ref Range Status 08/24/2021 9.0 8.5 - 10.2 mg/dL Final Last Office Visit was 09/2021 Route: Subcutaneous Given without incident Site: right upper quadrant abdomen Lot number [id number] Expiration Date 08/2023 Dr. Mckeon present in [...] 45 mg IM left upper abdomen. Lot Number:[id number] Expiration date:11/2022 Patient tolerated well. FOLLOW UP: Next Dose: 6 months documented in this encounterGreen Cross Hospital06-01-2022 NoteHNO ID: [id number] Author: Sp Mckeon, DO Service: ? Author Type: Physician Type: Progress Notes Filed: 09/05/2021 10:48 AM Note Text: ?? [facility] LOCATION: [address] [place] [address] ESTABLISHED PATIENT PATIENT INFO: Luther Castillo 66 [...] (8 mm tumor length). - Percentage of Nowata pattern 4 = 20%. - Expansile cribriform morphology is present. ? B. PROSTATE, BIOPSY, RIGHT MID: Prostatic adenocarcinoma, Nowata score 4+3=7 (Grade group 3), involving 90% of one core (10 mm tumor length). - Percentage of Nowata pattern 4 = 90%. - Expansile cribriform morphology is present. ? C. PROSTATE, BIOPSY, RIGHT APEX: Prostatic adenocarcinoma, Nowata score 3+4=7 (Grade group 2), involving 35% of one core (3 mm tumor length). - Percentage of Nowata pattern 4 = 5%. - Cribriform morphology is absent. ? D. PROSTATE, BIOPSY, RIGHT LATERAL BASE: High-grade prostatic intraepithelial neoplasia. ? E. PROSTATE, BIOPSY, RIGHT LATERAL MID: Prostatic adenocarcinoma, Rasheed score 3+4=7 (Grade group 2), involving 85% of one core (10 mm tumor length). - Percentage of Nowata pattern 4 = 10%. - Definitive cribriform morphology is absent. ? F. PROSTATE, BIOPSY, RIGHT LATERAL APEX: Prostatic adenocarcinoma, Nowata score 3+4=7 (Grade group 2), involving 50% of one core (6.5 mm tumor length). - Percentage of Nowata pattern 4 = 5%. - Cribriform morphology is absent. ? G. PROSTATE, BIOPSY, LEFT BASE: Prostatic adenocarcinoma, Nowata score 3+3=6 (Grade group 1), involving 4% [...] 77.7 Lymph% (%) Date Value 08/24/2021 14.8 Fillmore% (%) Date Value 08/24/2021 6.1 Eosin% (%) Date Value 05/28/2021 1.5 Baso% (%) Date Value 08/24/2021 0.1 Abs Neut (k/uL) Date Value 08/24/2021 6.41 Abs Fillmore (k/uL) Date Value 08/24/2021 0.50 Abs Eosin (k/uL) Date Value 08/24/2021 0.07 Abs Baso (k/uL) Date Value 08/24/2021 <0.03 Creatinine Date Value Ref Range Status 08/24/2021 0.98 0.73 - 1.22 mg/dL Final (more content not included)...[facility]06-01-2022 History of Present illness Narrative* Sp Mckeon DO - 09/05/2021 10:38 AM EDT Images from the original note were not included. [facility] LOCATION: [address] [place] [address] ESTABLISHED PATIENT PATIENT INFO: Luther Castillo 66 [...] A. PROSTATE, BIOPSY, RIGHT BASE: Prostatic adenocarcinoma, Nowata score 3+4=7 (Grade group 2), involving 60% of one core (8 mm tumor length). - Percentage of Nowata pattern 4 = 20%. - Expansile cribriform [...] (6.5 mm tumor length). - Percentage of Nowata pattern 4 = 5%. - Cribriform morphology [...] 77.7 Lymph% (%) Date Value 08/24/2021 14.8 Fillmore% (%) Date Value 08/24/2021 6.1 Eosin% (%) Date Value 05/28/2021 1.5 Baso% (%) Date Value 08/24/2021 0.1 Abs Neut (k/uL) Date Value 08/24/2021 6.41 Abs Fillmore (k/uL) Date Value 08/24/2021 0.50 Abs Eosin [...] with more than 50% of the total bgyp-kh-edgz time of the visit in counseling / coordination of care. Sp Mckeon DO MBA documented in this encounterGreen Cross Hospital05-31-2022 Instructions* Patient Instructions* MARGARITA Inman - 09/04/2021 2:32 PM EDT You can resume Omeprazole. documented in this encounterSt. [facility] Hospital05-31-2022 History of Present illness Narrative* MARGARITA Inman - 09/04/2021 1:00 PM EDT Reason for visit: Luther Castillo is a 66 y.o. male who presents to our Medical Oncology Clinic for a second opinion for his metastatic prostate cancer. HPI: Mr. Castillo was initially seen by [facility]) urologist, Dr. Nixon for PSA rise from [...] PSA 0.07 ng/mL on 08/24/2021. He follows [facility] hematology/oncology([place], [place]) Lillian Lopez MD for low grade MDS. Notes 05/29/2021 [...] Father age 91 Sister Alive Sister Alive PUnc MGF (Not Specified) PGF Son Alive Son [...] A. PROSTATE, BIOPSY, RIGHT BASE: Prostatic adenocarcinoma, Nowata score 3+4=7 (Grade group 2), involving 60% of one core (8 mm tumor length). - Percentage of Nowata pattern 4 = 20%. - Expansile cribriform morphology is present. B. PROSTATE, BIOPSY, RIGHT MID: Prostatic adenocarcinoma, Rasheed score 4+3=7 (Grade group 3), involving 90% of one core (10 mm tumor length). - Percentage of Rasheed pattern 4 = 90%. - Expansile cribriform morphology is present. C. PROSTATE, BIOPSY, RIGHT APEX: Prostatic adenocarcinoma, Nowata score 3+4=7 (Grade group 2), involving 35% of one core (3 mm tumor length). - Percentage of Nowata pattern 4 = 5%. - Cribriform morphology is absent. D. PROSTATE, BIOPSY, RIGHT LATERAL BASE: High-grade prostatic intraepithelial neoplasia. E. PROSTATE, BIOPSY, RIGHT LATERAL MID: Prostatic adenocarcinoma, Nowata score 3+4=7 (Grade group 2), involving 85% of one core (10 mm tumor length). - Percentage of Rasheed pattern 4 = 10%. - Definitive cribriform morphology is absent. F. PROSTATE, BIOPSY, RIGHT LATERAL APEX: Prostatic adenocarcinoma, Rasheed score 3+4=7 (Grade group 2), involving 50% of one core (6.5 mm tumor length). - Percentage of Nowata pattern 4 = 5%. - Cribriform morphology is absent. G. PROSTATE, BIOPSY, LEFT BASE: Prostatic adenocarcinoma, Nowata score 3+3=6 (Grade group 1), involving 4% [...] pharmacist ok to restart PPI. Yasmine Worley APRN-REPRINT SORTER * Jazlyn Lombardi III, MD - 09/04/2021 [...] Referral to cancer genetics. documented in this encounterSt. Charles Hospital05-25-2022 Miscellaneous Notes* Telephone Encounter - RAJ Feliz [...] RAJ Feliz Assessment Completed documented in this encounterGreen Cross Hospital05-24-2022 History of Present illness Narrative* Lillian Lopez MD - 08/28/2021 12:08 PM EDT PATIENT NAME: Luther Castillo. CLINIC NO: [id number]. ATTENDING PHYSICIAN: Lillian Lopez MD. DATE OF SERVICE: 08/28/2021. DIAGNOSIS: Metastatic prostate cancer (M1) Nowata 7 with skeletal metastasis -low-grade MDS /refractory [...] Abs Lymph 1.00 - 4.00 k/uL 1.22 Fillmore% % 6.1 Abs Fillmore <0.87 k/uL 0.50 Eosin% % 0.8 Abs [...] new diagnosis of metastatic prostate cancer (M1) Nowata score 7 & PSA 27; low- volume [...] with more than 50% of the total qvpb-bf-dzdj time of the visit in counseling / coordination of care. Portions of this documentation were copied and pasted from previous office visit notes in order to provide a cohesive continuity of the history. The note has been reviewed and edited and updated as necessary. Lillian Lopez MD. ELECTRONICALLY SIGNED Cc: Dr. Arsalan Mckeon, documented in this encounterGreen Cross Hospital05-20-2022 History of Present illness Narrative* Pennie Solorzano RT(R) - 08/24/2021 9:30 AM EDT RADIOLOGY SERVICE [...] 09:40 PATIENT DISCHARGED TO: Ambulatory patient, left [place] department area. A Diagnostic radioactive procedure has taken place, with no further precautions necessary other than routine body substance precautions. More information regarding radiation safety can be found usingthis link: [email or web address] SIGNATURE: Pennie Solorzano, RT(R) PATIENT NAME: Luther Castillo DATE: August 24, 2021 TIME: 12:52 PM PAGER/CONTACT #: documented in this encounterGreen Cross Hospital05-12-2022 Nurse Note* Stephanie Duron RN - 08/16/2021 2:34 PM EDT The patient is here for an injection of Xgeva Dose: 120 mg Route: Subcutaneous Lot# [id number] Expiration date Given without incident. Site: left arm Dr. Mckeon present in clinic at time of injection. The date due for the next injection is 1 month Patient education was given by nurse. Stephanie Duron RN documented in this encounterGreen Cross Hospital04-20-2022 Miscellaneous Notes* Telephone Encounter - Soraya [...] advise. Soraya Bishop Cma documented in this encounterGreen Cross Hospital04-18-2022 Miscellaneous Notes* Telephone Encounter - Lillian Lopez MD - 07/23/2021 3:06 PM EDT Patient's request for medication is as follows Signed Prescriptions Disp Refills predniSONE (DELTASONE) 5 mg tablet 60 tablet 2 Sig: Take 1 tablet by mouth twice daily. JESUS: No Authorizing Provider: LILLIAN LOPEZ Order entered - please phone pharmacy and notify patient. Lillian Lopez MD * Telephone Encounter - Natalya Dorsey RN - 07/23/2021 2:57 PM EDT Physician: Dr. Lopez Call from patient requesting refill. Please E-Scribe Pending Prescriptions Disp Refills PREDNISONE 5 MG TABLET 60 tablet 2 Sig: Take 1 tablet by mouth twice daily. JESUS: No To [facility] in [place] Natalya Dorsey RN documented in this encounterGreen Cross Hospital04-18-2022 Miscellaneous Notes* Telephone Encounter - Nika [...] advise. Nika Roach Pss documented in this encounterGreen Cross Hospital04-14-2022 Nurse Note* Luther Arthur RN - 07/19/2021 10:10 AM EDT Patient presents for monthly XGEVA injection Injection in right upper abdomen Lot#[id number] Exp 08/2023 documented in this encounterGreen Cross Hospital04-12-2022 Miscellaneous Notes* Telephone Encounter - Stephanie Duron RN - 07/17/2021 12:55 PM EDT NO AUTHORIZATION REQUIRED Per [facility] Registration, patient has Medicare Part B as primary insurance. No authorization required.Coverage of services is always based on medical necessity. Good for [employer] on . * Telephone Encounter - Stephanie [...] insurance problems. Assigned referral. [facility] Misc[facility] Notes* Telephone Encounter - Sahara Mcneill LPN - 07/06/2021 12:30 PM EDT Pharmacies updated in [facility]. Thank you. Medication note added to [facility]. Sahara Mcneill LPN * Telephone Encounter - Natalya Dorsey RN - 07/06/2021 11:12 AM EDT Patient calls and states that he has changed insurance and Romi will need to now go through [facility] ([phone]). He was told to call and let us know. He just received a refill and won't need another until the end of July. He would like a phone call when we do send out to [facility] so that he can reach out to them for more information about shipping/delivery. And, as an FYI, his retail pharmacy will change to [facility] in [place]. I asked him to remind uswhen he calls in for refills. Krista Dorsey RN [facility] Miscellaneous Notes* Telephone Encounter - Lillian Lopez MD - 07/05/2021 12:22 PM EDT Patient's request for medication is as follows Signed Prescriptions Disp Refills abiraterone 250 mg tablet 120 tablet 0 Sig: TAKE 4 TABLETS BY MOUTH ONCE DAILY ON AN EMPTY STOMACH AT LEAST 1 HOUR BEFORE OR 2 HOURS AFTEREATING. JESUS: No Authorizing Provider: LILLIAN LOPEZ Order entered - please phone pharmacy and notify patient. Lillian Lopez MD [facility] History of Past illness Narrative* Problem [...] of this encounter (statuses as of 07/05/2021) [facility] Narrative* Problem [...] of this encounter (statuses as of 07/06/2021) [facility] Narrative* Problem [...] of this encounter (statuses as of 07/17/2021) [facility]* Problem [...] of this encounter (statuses as of 07/19/2021) [facility]* Problem [...] of this encounter (statuses as of 07/23/2021) [facility]* Problem [...] of this encounter (statuses as of 07/23/2021) [facility]* Problem [...] of this encounter (statuses as of 07/24/2021) [facility]* Problem [...] of this encounter (statuses as of 07/25/2021) [facility]* Problem [...] of this encounter (statuses as of 08/16/2021) [facility]* Problem [...] of this encounter (statuses as of 08/25/2021) [facility]* Problem [...] of this encounter (statuses as of 08/25/2021) [facility]* Problem [...] of this encounter (statuses as of 08/29/2021) [facility]* Problem [...] of this encounter (statuses as of 08/29/2021) [facility]* Problem [...] of this encounter (statuses as of 09/05/2021) [facility]* Problem [...] of this encounter (statuses as of 10/05/2021) [facility]* Problem [...] of this encounter (statuses as of 10/11/2021) [facility]* Problem [...] of this encounter (statuses as of 11/13/2021) [facility]* Problem [...] of this encounter (statuses as of 11/15/2021) [facility]* Problem [...] of this encounter (statuses as of 11/23/2021) [facility]* Problem [...] of this encounter (statuses as of 12/13/2021) [facility]* Problem [...] of this encounter (statuses as of 01/02/2022) [facility]* Problem [...] of this encounter (statuses as of 01/21/2022) [facility]* Problem [...] of this encounter (statuses as of 01/22/2022) [facility]* Problem [...] of this encounter (statuses as of 02/15/2022) [facility]* Problem [...] of this encounter (statuses as of 02/21/2022) [facility]* Problem [...] 10/09/2016 BPH loc w urin obs/LUTS 04/24/2006 09/29/20 17 documented as of this encounter (statuses as of 03/06/2022) [facility]* Problem [...] of this encounter (statuses as of 03/16/2022) [facility]* Problem [...] of this encounter (statuses as of 03/21/2022) [facility]* Problem [...] of this encounter (statuses as of 04/17/2022) [facility]* Problem [...] of this encounter (statuses as of 04/24/2022) [facility]* Problem [...] of this encounter (statuses as of 05/07/2022) [facility] Problem [...] of this encounter (statuses as of 05/08/2022) [facility]* Problem [...] of this encounter (statuses as of 05/17/2022) [facility] Problem [...] of this encounter (statuses as of 06/14/2022) [facility]* Problem [...] of this encounter (statuses as of 08/01/2022) [facility]* Problem [...] of this encounter (statuses as of 08/19/2022) [facility]* Problem [...] of this encounter (statuses as of 08/19/2022) [facility] Problem [...] of this encounter (statuses as of 09/12/2022) [facility]* Problem [...] of this encounter (statuses as of 09/26/2022) [facility]* Problem [...] of this encounter (statuses as of 10/01/2022) [facility] Problem [...] of this encounter (statuses as of 10/14/2022) [facility]* Problem [...] of this encounter (statuses as of 10/24/2022) [facility] Problem [...] of this encounter (statuses as of 11/21/2022) [facility] Problem [...] of this encounter (statuses as of 11/21/2022) [facility] Problem [...] of this encounter (statuses as of 11/27/2022) [facility] Problem [...] of this encounter (statuses as of 12/02/2022) [facility] Problem [...] of this encounter (statuses as of 12/19/2022) [facility] Problem [...] of this encounter (statuses as of 01/16/2023) [facility] Problem [...] of this encounter (statuses as of 01/16/2023) [facility] Problem [...] of this encounter (statuses as of 01/16/2023) [facility] Problem [...] of this encounter (statuses as of 01/21/2023) [facility] Problem [...] of this encounter (statuses as of 02/09/2023) [facility] Problem [...] of this encounter (statuses as of 02/13/2023) [facility] Problem [...] of this encounter (statuses as of 02/19/2023) [facility] Problem [...] of this encounter (statuses as of 03/13/2023) [facility] Problem [...] of this encounter (statuses as of 03/18/2023) [facility] Problem [...] of this encounter (statuses as of 03/19/2023) [facility] Problem [...] of this encounter (statuses as of 03/28/2023) [facility] Problem [...] of this encounter (statuses as of 05/08/2023) [facility] Problem [...] of this encounter (statuses as of 05/16/2023) [facility] Problem [...] of this encounter (statuses as of 06/05/2023) [facility] Problem [...] of this encounter (statuses as of 06/11/2023) [facility] Problem [...] of this encounter (statuses as of 06/12/2023) [facility] Problem [...] of this encounter (statuses as of 06/16/2023) [facility] Problem [...] of this encounter (statuses as of 06/18/2023) [facility] Problem [...] of this encounter (statuses as of 06/18/2023) [facility] Problem [...] of this encounter (statuses as of 06/18/2023) [facility]* Problem [...] of this encounter (statuses as of 06/19/2023) [facility] [place] [facility] note No data available for this section [facility] Evaluation note* Diagnosis Prostate cancer metastatic to bone (HCC) [facility] Diagnosis Prostate cancer (HCC) Malignant neoplasm of prostate [facility] Diagnosis 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) [facility] Diagnosis Prostate cancer metastatic to bone (HCC) [facility] Diagnosis 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 and other lower urinary tract symptoms (LUTS) [facility] Diagnosis Prostate cancer (HCC)- Primary Malignant neoplasm of prostate [facility] Prostate cancer metastatic to bone (HCC) Malignant neoplasm of prostate (HCC) Malignant neoplasm of prostate [facility] 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 cancer (HCC) Malignant neoplasm of prostate [facility] Diagnosis Prostate cancer (HCC)- Primary [...] malignant neoplasms, [facility] (HCC)- Primary Malignant neoplasm of prostate [facility] Diagnosis Notalgia paresthetica- Primary Disturbance of skin sensation Actinic keratosis Seborrheic keratosis Other seborrheic keratosis Cabrera angioma Nevus, non-neoplastic Lentigines Other dyschromia Multiple benign nevi Benign neoplasm of skin, site unspecified Personal history of skin cancer Personal history of other malignant neoplasm of skin [facility] Diagnosis Malignant neoplasm of prostate (HCC)- Primary Malignant neoplasm of prostate Prostate cancer (HCC) Malignant neoplasm of prostate [facility] Diagnosis 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) [facility] Diagnosis 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) [facility] Diagnosis Prostate cancer metastatic to bone (HCC)- Primary 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 Bone metastasis (HCC) Secondary malignant neoplasm of bone and bone marrow Family history of prostate cancer in father [facility] Diagnosis Prostate cancer (HCC)- Primary Malignant neoplasm of prostate [facility] Diagnosis Chronic superficial gastritis without bleeding- Primary Atrophic gastritis without mention of hemorrhage Gastroesophageal reflux disease with esophagitis without hemorrhage Family history of colon cancer Family history of malignant neoplasm of gastrointestinal tract [facility] Diagnosis 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) [facility] Diagnosis 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) [facility] Diagnosis Malignant neoplasm of prostate (HCC)- Primary Malignant neoplasm of prostate Bone metastasis (HCC) Secondary malignant neoplasm of bone and bone marrow [facility] Diagnosis Actinic keratosis- Primary [facility] Diagnosis Prostate cancer (HCC)- Primary Malignant neoplasm of prostate [facility] Diagnosis Prostate cancer (HCC)- Primary Malignant neoplasm of prostate [facility] Diagnosis Prostate cancer metastatic to bone (HCC)- Primary 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 [facility] Diagnosis Prostate cancer metastatic to bone (HCC) [facility] Diagnosis Prostate cancer (HCC)- Primary Malignant neoplasm of prostate [facility] Diagnosis Prostate cancer (HCC)- Primary Malignant neoplasm of prostate [facility] Diagnosis Prostate cancer (HCC)- Primary Malignant neoplasm of prostate [facility] Diagnosis 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 [facility] Diagnosis Prostate cancer (HCC)- Primary Malignant neoplasm of prostate [facility] Diagnosis Seborrheic keratosis- Primary Other seborrheic keratosis Cabrera angioma Nevus, non-neoplastic Lentigines Other dyschromia Multiple benign nevi Benign neoplasm of skin, site unspecified Actinic keratosis Personal history of skin cancer Personal history of other malignant neoplasm of skin Senile purpura (HCC) Other nonthrombocytopenic purpuras [facility] Diagnosis Hemorrhoids, unspecified hemorrhoid type- Primary Perianal cyst Other specified disorder of rectum and anus [facility] Diagnosis Prostate cancer (HCC)- Primary Malignant neoplasm of prostate [facility] Diagnosis Prostate cancer metastatic to bone (HCC) [facility] Diagnosis Screening for colon cancer- Primary Special screening for malignant neoplasms, colon History of colon polyps Personal history of colonic polyps Epigastric pain Abdominal pain, epigastric Gastroesophageal reflux disease, unspecified whether esophagitis present History of anemia Personal history of diseases of blood and blood-forming organs [facility] Diagnosis Prostate cancer (HCC)- Primary Malignant neoplasm of prostate [facility] Diagnosis 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 [facility] Diagnosis Prostate cancer (HCC)- Primary Malignant neoplasm of prostate [facility] Diagnosis Hyperlipidemia, mixed- Primary Mixed hyperlipidemia [facility] Diagnosis Prostate cancer (HCC)- Primary Malignant neoplasm of prostate [facility] Diagnosis 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 [facility] Diagnosis Prostate cancer (HCC)- Primary Malignant neoplasm of prostate 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 [facility]* Diagnosis SOB (shortness of breath)- Primary Shortness of breath Chest pain, unspecified type Acute left-sided low back pain, unspecified whether sciatica present [facility] Diagnosis SOB (shortness of breath) Shortness of breath Chest pain, unspecified type [facility]* Diagnosis 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 Prostate cancer (HCC) Malignant neoplasm of prostate [facility]* Diagnosis 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 [facility] Diagnosis Prostate cancer (HCC)- Primary Malignant neoplasm of prostate 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 [facility] Diagnosis Prostate cancer (HCC)- Primary Malignant neoplasm of prostate 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 [facility]* Diagnosis Prostate cancer (HCC)- Primary Malignant neoplasm of prostate [facility]* Diagnosis Prostate cancer metastatic to bone (HCC) [facility]* Diagnosis SOB (shortness of breath)- Primary Shortness of breath Abnormal ECG Nonspecific abnormal electrocardiogram (ECG) (EKG) Chest pain, unspecified type Mixed hyperlipidemia [facility]* Diagnosis Prostate cancer metastatic to bone (HCC)- Primary 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 [facility]* Diagnosis Prostate cancer (HCC)- Primary Malignant neoplasm of prostate 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 [facility] 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 [facility]* Diagnosis SOB (shortness of breath) Shortness of breath Abnormal ECG Nonspecific abnormal electrocardiogram (ECG) (EKG) Chest pain, unspecified type Mixed hyperlipidemia [facility]* Diagnosis 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 and other lower urinary tract symptoms (LUTS) [facility]* Diagnosis 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 Prostate cancer (HCC) Malignant neoplasm of prostate [facility] Diagnosis Xerosis cutis- Primary Other specified disease of sebaceous glands Actinic keratosis Seborrheic keratosis Other seborrheic keratosis Lentigines Other dyschromia Cabrera angioma Nevus, non-neoplastic Multiple benign nevi Benign neoplasm of skin, site unspecified Personal history of skin cancer Personal history of other malignant neoplasm of skin [facility] Diagnosis Prostate cancer metastatic to bone (HCC)- Primary Abdominal pain, unspecified abdominal location Acute left-sided low back pain, unspecified whether sciatica present [facility] Diagnosis Prostate cancer metastatic to bone (HCC) Abdominal pain, unspecified abdominal location Acute left-sided low back pain, unspecified whether sciatica present [facility] Diagnosis Prostate cancer (HCC)- Primary Malignant neoplasm of prostate 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 [facility]* Diagnosis SOB (shortness of breath) Shortness of breath Chest pain, unspecified type [facility] Diagnosis Left hip pain- Primary Pain in joint, pelvic region and thigh [facility] Diagnosis Left hip pain Pain in joint, pelvic region and thigh documented in this encounter [facility] [facility] Diagnosis 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 Prostate cancer (HCC) Malignant neoplasm of prostate [facility] Diagnosis Right hip pain- Primary Pain in joint, pelvic region and thigh Prostate cancer (HCC) Malignant neoplasm of prostate 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 [facility] Diagnosis Left hip pain- Primary Pain in joint, pelvic region and thigh Radiculopathy, lumbar region Thoracic or lumbosacral neuritis or radiculitis, unspecified Decreased ROM of lumbar spine Weakness of trunk musculature Muscle weakness (generalized) [facility] Diagnosis Left inguinal pain- Primary Abdominal pain, left lower quadrant Spinal stenosis of lumbar region, unspecified whether neurogenic claudication present Left inguinal pain Abdominal pain, left lower quadrant [facility] Diagnosis Left inguinal pain Abdominal pain, left lower quadrant [facility] Diagnosis 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 [facility] Left hip pain- Primary Pain in joint, pelvic region and thigh Radiculopathy, lumbar region Thoracic or lumbosacral neuritis or radiculitis, unspecified Decreased ROM of lumbar spine Weakness of trunk musculature Muscle weakness (generalized) [facility] Diagnosis Left hip pain- Primary Pain in joint, pelvic region and thigh Radiculopathy, lumbar region Thoracic or lumbosacral neuritis or radiculitis, unspecified Decreased ROM of lumbar spine Weakness of trunk musculature Muscle weakness (generalized) [facility] Diagnosis 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 Prostate cancer (HCC) Malignant neoplasm of prostate [facility] Diagnosis Left hip pain- Primary Pain in joint, pelvic region and thigh Radiculopathy, lumbar region Thoracic or lumbosacral neuritis or radiculitis, unspecified Decreased ROM of lumbar spine Weakness of trunk musculature Muscle weakness (generalized) [facility] Diagnosis Left hip pain- Primary Pain in joint, pelvic region and thigh Radiculopathy, lumbar region Thoracic or lumbosacral neuritis or radiculitis, unspecified Decreased ROM of lumbar spine Weakness of trunk musculature Muscle weakness (generalized) [facility] Diagnosis Left hip pain- Primary Pain in joint, pelvic region and thigh Radiculopathy, lumbar region Thoracic or lumbosacral neuritis or radiculitis, unspecified Decreased ROM of lumbar spine Weakness of trunk musculature Muscle weakness (generalized) [facility] Diagnosis Left hip pain- Primary Pain in joint, pelvic region and thigh Radiculopathy, lumbar region Thoracic or lumbosacral neuritis or radiculitis, unspecified Decreased ROM of lumbar spine Weakness of trunk musculature Muscle weakness (generalized) [facility] Diagnosis Left hip pain- Primary Pain in joint, pelvic region and thigh Radiculopathy, lumbar region Thoracic or lumbosacral neuritis or radiculitis, unspecified Decreased ROM of lumbar spine Weakness of trunk musculature Muscle weakness (generalized) [facility] Diagnosis Medicare annual wellness visit, subsequent- Primary Routine general medical examination at a [facility] care facility Screening for depression [facility] Diagnosis Prostate cancer (HCC)- Primary Malignant neoplasm of prostate 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 [facility] Diagnosis Actinic keratosis- Primary [facility] Diagnosis Osteoarthritis of spine with radiculopathy, lumbar region- Primary Chronic left hip pain Pain in joint, pelvic region and thigh Right hip pain Pain in joint, pelvic region and thigh [facility] Diagnosis Prostate cancer metastatic to bone (HCC) [facility] Diagnosis Left hip pain- Primary Pain in joint, pelvic region and thigh Radiculopathy, lumbar region Thoracic or lumbosacral neuritis or radiculitis, unspecified Decreased ROM of lumbar spine Weakness of trunk musculature Muscle weakness (generalized) [facility] Diagnosis Skin neoplasm- Primary Neoplasm of unspecified nature of bone, soft tissue, and skin [facility] Diagnosis 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 [facility]* Diagnosis 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 Prostate cancer (HCC) Malignant neoplasm of prostate [facility] Diagnosis 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 [facility] Diagnosis 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 [facility] Diagnosis Motion sickness, initial encounter- Primary [facility] Diagnosis Prostate cancer (HCC)- Primary Malignant neoplasm of prostate 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 [facility] Diagnosis 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 [facility] Diagnosis 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 and skin of neck [facility] Diagnosis 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 [facility]* Diagnosis Prostate cancer (HCC)- Primary Malignant neoplasm of prostate 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 [facility] Diagnosis Prostate cancer (HCC)- Primary Malignant neoplasm of prostate 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) [facility] Diagnosis Vitamin D deficiency- Primary Unspecified vitamin D deficiency Iron deficiency Iron deficiency anemia, unspecified SOB (shortness of breath) Shortness of breath Mixed hyperlipidemia [facility]* Diagnosis Prostate cancer (HCC)- Primary Malignant neoplasm of prostate 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 [facility]* Diagnosis Prostate cancer (HCC)- Primary Malignant neoplasm of prostate [facility]* Diagnosis Onset Date Resolution Status Admit Date Acute kidney injury acute September 18, 2024 3:12pm Sepsis acute September 18 3:12pm [facility] Work Phone: Evaluation note* Diagnosis 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 [facility]* Diagnosis Prostate cancer metastatic to bone (HCC) [facility]* Diagnosis Non-healing surgical wound, subsequent encounter- Primary Hx of nonmelanoma skin cancer Personal history of other malignant neoplasm of skin Encounter for post surgical wound check [facility] Diagnosis Cholangitis (HCC)- Primary Cholangitis 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) [facility] Diagnosis Prostate cancer metastatic to bone (HCC) [facility]* Diagnosis 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 [facility] Diagnosis Open wound of scalp, unspecified open wound type, initial encounter- Primary Wound dehiscence Disruption of external operation (surgical) wound [facility]* Diagnosis Sepsis with acute organ dysfunction and septic shock, due to unspecified organism, unspecified organ dysfunction type (HCC)- Primary Cholangitis (HCC) Cholangitis [facility]* Diagnosis 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 [facility]* Diagnosis Septic shock (HCC)- Primary Streptococcal infection Hypokalemia Hypopotassemia Hypophosphatemia Disorders of phosphorus metabolism Prostate cancer (HCC) Malignant neoplasm of prostate Metastasis to bone (HCC) Secondary malignant neoplasm of bone and bone marrow Anemia, unspecified type Thrombocytopenia Thrombocytopenia, unspecified Urinary frequency Bilateral lower extremity edema Edema Pulmonary hypertension (HCC) Other chronic pulmonary heart diseases Open wound of scalp, unspecified open wound type, initial encounter Wound dehiscence Disruption of external operation (surgical) wound [facility]* Diagnosis Cholangitis (HCC) Cholangitis Sepsis with acute organ dysfunction and septic shock, due to unspecified organism, unspecified organ dysfunction type (HCC) Open wound of scalp, unspecified open wound type, initial encounter Wound dehiscence Disruption of external operation (surgical) wound [facility]* Diagnosis Sepsis with acute organ dysfunction and septic shock, due to unspecified organism, unspecified organ dysfunction type (HCC)- Primary Open wound of scalp, unspecified open wound type, initial encounter Wound dehiscence Disruption of external operation (surgical) wound [facility]* Diagnosis Pre-op evaluation- Primary Preoperative examination, unspecified Bruit of right carotid artery Malignant neoplasm of prostate (HCC) Malignant neoplasm of prostate Secondary malignant neoplasm of bone (HCC) Secondary malignant neoplasm of bone and bone marrow Squamous cell carcinoma of skin of scalp and neck Squamous cell carcinoma of scalp and skin of neck Anemia in neoplastic disease Cholangitis (HCC) Cholangitis Essential (primary) hypertension Unspecified essential hypertension Personal history of tobacco use Personal history of tobacco use, presenting hazards to health Mixed hyperlipidemia Gastroesophageal reflux disease with esophagitis, unspecified whether hemorrhage Open wound of scalp, unspecified open wound type, initial encounter Wound dehiscence Disruption of external operation (surgical) wound [facility]* Diagnosis Pre-op evaluation Preoperative examination, unspecified Bruit of right carotid artery Open wound of scalp, unspecified open wound type, initial encounter Wound dehiscence Disruption of external operation (surgical) wound [facility] Diagnosis 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 Open wound of scalp, unspecified open wound type, initial encounter Wound dehiscence Disruption of external operation (surgical) wound [facility]* Diagnosis Prostate cancer metastatic to bone (HCC)- Primary 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 Open wound of scalp, unspecified open wound type, initial encounter Wound dehiscence Disruption of external operation (surgical) wound [facility]* Diagnosis 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 Open wound of scalp, unspecified open wound type, initial encounter Wound dehiscence Disruption of external operation (surgical) wound [facility] Diagnosis Postoperative pain- Primary Other acute postoperative pain [facility] Diagnosis 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 and other lower urinary tract symptoms (LUTS) [facility]* Diagnosis 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 [facility]* Diagnosis Surgical followup visit- Primary Follow-up examination, following unspecified surgery [facility]* Diagnosis Septic shock (HCC) Streptococcal infection [facility]* Diagnosis Prostate cancer metastatic to bone (HCC)- Primary SCC (squamous cell carcinoma), scalp/neck Squamous cell carcinoma of scalp and skin of neck Prostate cancer (HCC)- Primary Malignant neoplasm of prostate [facility] Diagnosis History of prostate cancer- Primary Personal history of malignant neoplasm of prostate Nocturia Septic shock (HCC) Malignant neoplasm of prostate (HCC) Malignant neoplasm of prostate Essential (primary) hypertension Unspecified essential hypertension Open wound of scalp, unspecified open wound type, initial encounter Personal history of malignant neoplasm of skin Personal history of other malignant neoplasm of skin [facility] Diagnosis 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 Open wound of scalp, unspecified open wound type, initial encounter Personal history of malignant neoplasm of skin Personal history of other malignant neoplasm of skin documented in this encounter [facility] note* Diagnosis Gastroesophageal reflux disease with esophagitis, unspecified whether hemorrhage- Primary Bilateral carotid bruits Malignant neoplasm of prostate (HCC) Malignant neoplasm of prostate 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 Currently off antibiotics. Follows with ID, last visit 11/26/24. 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 Hgb 9.3 on 12/01/24. * Assessment & Plan Note - Malena Maynard PA-C - 12/02/2024 1:21 PM EDTAssociated Problem(s): Malignant neoplasm of prostate (HCC) Prostate cancer with bone mets. On abiraterone, prednisone, Eligard and Xgeva. * Assessment & Plan Note - Malena Maynard PA-C - 12/02/2024 1:20 PM EDTAssociated Problem(s): Carotid bruit Carotid US 10/29/24 with moderate atherosclerotic disease of carotid bifurcations with stenosis lessthan 50% on either side. * Assessment & Plan Note - Malena Maynard PA-C - 12/02/2024 1:20 PM EDTAssociated Problem(s): Gastroesophageal reflux disease with esophagitis Stable, on rx. 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 and other lower urinary tract symptoms (LUTS) 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 López Lilyl MD Status :ADM IN Location: ICU ICU03-1 [...] on steroids and is unable to compensate. [facility] Medical History (Updated 09/18/24 @ 15:16 by [...] 87.5 H, Lymph % (Auto) 10.7 L, [place] % (Auto) 0.9, Eos % (Auto) 0.5, [...] Clarity Clear, Urine pH 6.0, Ur Specific Spencer 1.015, Urine Protein 30 H, Urine Glucose [...] IMPRESSION: No acute process detected. Reading [facility] Assessment & Plan Assessment/Plan (1) Sepsis: (2) [...] responsive hypotension Charges/Coding Visit Charges Inpatient E&M: 55712 Init Hosp L3 09/18/24 1620 <Electronically signed by Ivan Nugent MD> Cosigner Signature (if applicable): CC: Dr. López Lilly MD; Dr. Ivan Nugent MD~ Signed [facility] Work Phone: [facility] Diagnostic Procedure Only (Routine) - Closed Specialty Diagnoses / Procedures Referred By Contac t Referred To Contact MOLECULAR & FUNCTIONAL IMAGING Diagnoses Prostate cancer metastatic to bone (HCC) Malignant neoplasm of prostate (HCC) Procedures NM BONE WHOLE BODY BONE &/JOINT IMAGING WHOLE BODY Lillian Lopez MD [address] [place] [address] Molecular [facility] Functional Imaging [address] [id number] Referral ID Status Reason Start Date Expiration Date V isits Requested Visits Authorized [id number] Closed Auto-Generate d Referral 08/26/2021 06/28/2022 1 1 [facility] for referral (narrative)* Outpatient Procedure (Routine) - Closed Specialty Diagnoses / Procedures Referred By Contac t Referred To Contact [facility] Diagnoses Epigastric pain Gastroesophageal reflux disease, unspecified whether esophagitis present History of anemia Procedures EGD DIAGNOSTIC ESOPHAGOGASTRODUODENOSC OPY TRANSORAL DIAGNOSTIC Derrek Baker PA-C [address] [place] [address] [facility] [address] [place] [address] Referral ID Status Reason Start Date Expiration Date V isits Requested Visits Authorized [id number] Closed Auto-Generate d Referral 01/25/2022 01/25/2023 1 1 * Outpatient Procedure (Routine) - Closed Specialty Diagnoses / Procedures Referred By Contac t Referred To Contact [facility] Diagnoses History of colon polyps Procedures COLONOSCOPY DIAGNOSTIC COLONOSCOPY FLX DX W/COLLJ SPEC WHEN PFRMD Derrek Baker PA-C [address] [place] [address] [facility] [address] [place] [address] Referral ID Status Reason Start Date Expiration Date V isits Requested Visits Authorized [id number] Closed Auto-Generate d Referral 01/25/2022 01/25/2023 1 1 [facility] for referral (narrative)* Outpatient Procedure (Urgent) - Closed Specialty Diagnoses / Procedures Referred By Contac t Referred To Contact [facility] [place] Diagnoses SOB (shortness of breath) Chest pain, unspecified type Procedures EXERCISE STRESS ECG (WITHOUT IMAGING) Catherine Peraza APRN.CNP [address] [place] [address] [facility] [address] [address] Referral ID Status Reason Start Date Expiration Date V isits Requested Visits Authorized [id number] Closed Auto-Generate d Referral 06/11/2023 06/10/2024 1 1 [facility] for referral (narrative)* Diagnostic Procedure Only (Routine) - New Request Specialty Diagnoses / Procedures Referred By Contact Referred To Contact MOLECULAR & FUNCTIONAL IMAGING Diagnoses SOB (shortness of breath) Abnormal ECG Chest pain, unspecified type Mixed hyperlipidemia Abnormal electrocardiogram Procedures NM CARDIAC PERF STRESS/EXERCISE MYOCARDIAL SPECT MULTIPLE STUDIES Dorcas Romero DO [address] [place] [address] Molecular & Functional Imaging [address] [place] [address] Referral ID Status Reason Start Date Expiration Date Visits Requested Visits Authorized [id number] New Request Auto-Generat ed Referral 10/16/2023 11/14/2024 1 1 [facility] for referral (narrative)* Diagnostic Procedure Only (Routine) - Closed Specialty Diagnoses / Procedures Referred By Contact Referred To Contact [facility]LEC[facility] FUNCTIONAL IMAGING Diagnoses SOB (shortness of breath) Abnormal ECG Chest pain, unspecified type Mixed hyperlipidemia Abnormal electrocardiogram Procedures NM CARDIAC PERF STRESS/EXERCISE MYOCARDIAL SPECT MULTIPLE STUDIES Dorcas Romero DO [address] [place] [address] Molecular & Functional Imaging [address] [place], [place] [id number] Referral ID Status Reason Start Date Expiration Date V isits Requested Visits Authorized [id number] Closed Auto-Generate d Referral 10/16/2023 11/14/2024 1 1 [facility] for referral (narrative)* Diagnostic Procedure Only (Routine) - Closed Specialty Diagnoses / Procedures Referred By Contac t Referred To Contact US IMAGING Diagnoses Left inguinal pain LLQ abdominal pain Procedures US DOPPLER COMPLETE DUP-SCAN ARTL KIRSTY ABDL/PEL/SCROT&/RPR ORGN COM Arsalan Lilly MD [address] [place] [address] [facility] Referral ID Status Reason Start Date Expiration Date V isits Requested Visits Authorized [id number] Closed Auto-Generate d Referral 02/03/2024 03/04/2025 1 1 * Diagnostic Procedure Only (Urgent) - Closed Specialty Diagnoses / Procedures Referred By Contac t Referred To Contact US IMAGING Diagnoses Left inguinal pain LLQ abdominal pain Procedures US SCROTUM AND CONTENTS US SCROTUM & CONTENTS Arsalan Lilly MD [address] [place], [place] [id number] [facility] Referral ID Status Reason Start Date Expiration Date V isits Requested Visits Authorized [id number] Closed Auto-Generate d Referral 02/03/2024 03/04/2025 1 1 [facility] for referral (narrative)No reason for referral information availableWKettering [facility] Work Phone: Reason for visit Narrative* Diagnostic Procedure Only (Routine) - Closed Specialty Diagnoses / Procedures [facility] To Contact MOLECULAR & FUNCTIONAL IMAGING Diagnoses Prostate cancer metastatic to bone (HCC) Malignant neoplasm of prostate (HCC) Procedures NM BONE WHOLE BODY BONE &/JOINT IMAGING WHOLE BODY Lillian Lopez MD [address] [place] [address] Molecular & Functional Imaging [address] [id number] Referral ID Status Reason Start Date Expiration Date V isits Requested Visits Authorized [id number] Closed Auto-Generate d Referral 08/26/2021 06/28/2022 1 1 [facility] for visit Narrative* Outpatient Procedure (Routine) - Closed Specialty Diagnoses / Procedures [facility] Diagnoses Epigastric pain Gastroesophageal reflux disease, unspecified whether esophagitis present History of anemia Procedures EGD DIAGNOSTIC ESOPHAGOGASTRODUODENOSC OPY TRANSORAL DIAGNOSTIC Derrek Baker PA-C [address] [id number] [facility] [address] [place] [address] Referral ID Status Reason Start Date Expiration Date V isits Requested Visits Authorized [id number] Closed Auto-Generate d Referral 01/25/2022 01/25/2023 1 1 [facility] for visit Narrative* Outpatient Procedure (Urgent) - Closed Specialty Diagnoses / Procedures [facility] Diagnoses SOB (shortness of breath) Chest pain, unspecified type Procedures EXERCISE STRESS ECG (WITHOUT IMAGING) ToneylogCatherine verduzco APRN.REPRINT SORTER [address] [id number] [facility] [place] [address] Referral ID Status Reason Start Date Expiration Date V isits Requested Visits Authorized [id number] Closed Auto-Generate d Referral 06/11/2023 06/10/2024 1 1 [facility] for visit Narrative* Diagnostic Procedure Only (Routine) - Closed Specialty Diagnoses / Procedures Referred By Contact Referred To Contact MOLECULAR & FUNCTIONAL IMAGING Diagnoses SOB (shortness of breath) Abnormal ECG Chest pain, unspecified type Mixed hyperlipidemia Abnormal electrocardiogram Procedures NM CARDIAC PERF STRESS/EXERCISE MYOCARDIAL SPECT MULTIPLE STUDIES Dorcas Romero DO [address] [place] [address] Molecular & Functional Imaging [address] [place] [address] Referral ID Status Reason Start Date Expiration Date V isits Requested Visits Authorized [id number] Closed Auto-Generate d Referral 10/16/2023 11/14/2024 1 1 [facility] for visit Narrative* Diagnostic Procedure Only (Routine) - Closed Specialty Diagnoses / Procedures Referred By Contac t Referred To Contact XR IMAGING Diagnoses Left hip pain Procedures XR HIP GENERAL 3V PELV/AP/LAT LEFT RADEX HIP UNILATERAL WITH PELVIS 2-3 VIEWS PodlogarCatherine APRN.REPRINT SORTER [address] [place] [address] Xr Imaging [facility] Referral ID Status Reason Start Date Expiration Date V isits Requested Visits Authorized [id number] Closed Auto-Generate d Referral 12/24/2023 01/22/2025 1 1 [facility] for visit Narrative* Diagnostic Procedure Only (Routine) - Closed Specialty Diagnoses / Procedures Referred By Contac t Referred To Contact US IMAGING Diagnoses Left inguinal pain LLQ abdominal pain Procedures US DOPPLER COMPLETE DUP-SCAN ARTL KIRSTY ABDL/PEL/SCROT&/RPR ORGN COM Arsalan Lilly MD [address] [place] [address] [facility]95 Referral ID Status Reason Start Date Expiration Date V isits Requested Visits Authorized [id number] Closed Auto-Generate d Referral 02/03/2024 03/04/2025 1 1 [facility] for visit Narrative* [place]ont Prior Authorization (Routine) - Authorized Specialty Diagnoses / Procedures Referred By Contac t Referred To Contact Diagnoses 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) Procedures DARBEPOETIN DAGMAR, NON-ESRD Dereje Villarreal MD [address] [place] [address] Phone: tel: Dereje Villarreal MD [address] [place] [address] Phone: tel: Referral ID Status Reason Start Date Expiration Date V isits Requested Visits Authorized [id number] Authorized 08/16/2024 02/11/2025 99 99 [facility] for visit Narrative* MRI/CT (Routine) - Closed Specialty Diagnoses / Procedures [facility] Referred To Contact MR IMAGING Diagnoses Prostate cancer metastatic to bone (HCC) Procedures MRI BRAIN WO/W IVCON MRI BRAIN BRAIN STEM W/O W/CONTRAST MATERIAL Bashir Killian DO [address] [facility] [place] [place] [address] Phone: tel: fax: [place] [address] Referral ID Status Reason Start Date Expiration Date V isits Requested Visits Authorized [id number] Closed Auto-Generate d Referral 09/24/2024 10/24/2025 1 1 [facility] for visit Narrative* Diagnostic Procedure Only (Routine) - Closed Specialty Diagnoses / Procedures Referred By Contac t Referred To Contact US IMAGING Diagnoses Cholangitis (HCC) Sepsis with acute organ dysfunction and septic shock, due to unspecified organism, unspecified organ dysfunction type (HCC) Procedures US ABD RIGHT UPPER QUADRANT US ABDOMINAL REAL TIME W/IMAGE LIMITED Davida Al MD [address] [facility] [place] [place] [address] Phone: tel: fax: [place] [address] Referral ID Status Reason Start Date Expiration Date V isits Requested Visits Authorized [id number] Closed Auto-Generate d Referral 10/14/2024 11/13/2025 1 1 [facility] for visit Narrative* Diagnostic Procedure Only (Routine) - Closed Specialty Diagnoses / Procedures [facility] Referred To Contact US IMAGING Diagnoses Pre-op evaluation Bruit of right carotid artery Procedures US CAROTID BILATERAL Roxi Martinez, TATE [address] [place] [address] Phone: tel: fax: [place] [address] Referral ID Status Reason Start Date Expiration Date V isits Requested Visits Authorized [id number] Closed Auto-Generate d Referral 10/28/2024 11/27/2025 1 1 [facility] Summary Purpose Family History No Family History Records Found Relationship Condition Age at Onset Recorded Date/T payal Not Specified Malignant neoplasm Unknown Relationship Condition Age at Onset Recorded Date/T payal father Malignant neoplasm of prostate Unknown Hypertension Unknown Advance Directives No Advanced Directives Records FoundDocuments on File Type Date Recorded Patient Helpdesk Manager 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 anation Advance Directive(s) 08/09/2020 12:28 PM Advance Directive(s) 07/31/2020 9:26 AM Advance Directive(s) 02/10/2017 12:25 PM Advance Directive(s) 10/10/2016 10:52 AM Advance Directive(s) 02/26/2016 3:45 PM Advance Directive(s) 02/21/2016 11:13 AM Advance Directive(s) 03/10/2012 4:03 PM Documents on File Type Date Recorded 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 Manager 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 anation Advance Directive(s) 08/09/2020 12:28 PM Advance Directive(s) 07/31/2020 9:26 AM Advance Directive(s) 02/10/2017 12:25 PM Advance Directive(s) 10/10/2016 10:52 AM Advance Directive(s) 02/26/2016 3:45 PM Advance Directive(s) 02/21/2016 11:13 AM Advance Directive(s) 03/10/2012 4:03 PM Documents on File Type Date Recorded 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 No September 18, 2024 1:58pm Advance Directive Response Recorded Date/ Time Do you have a Healthcare Power of Carpenter Rough? Yes September 18, 2024 4:56pm Advance Directive Response Recorded Date/ Time Do you have a Healthcare Power of Carpenter Rough? Yes October 15, 2024 4:35am Name of Medical Power of Carpenter Rough robyn-- October 15, 2024 4:35am Do you have a Healthcare Power of Carpenter Rough? Yes September 18, 2024 4:56pm Advance Directive Response Recorded Date/ Time Do you have a Healthcare Pow er of Carpenter Rough? Yes October 15, 2024 10:23am Name of Medical Power of Carpenter Rough Luz tinajero, October 15, 2024 10:23am Do you have a Healthcare Pow er of Carpenter Rough? Yes September 18, 2024 4:56pm Medications Administered [...] mg, SUBCUTANEOUS, ONCE, 1 dose, On Roseann 09/26/22 at 0930, REFRIGERATE Given 09/26/2022 9:30 AM [...] Date Dose Rate Site benzocaine 20% 1 [place] (TOPEX) 1 [place], TOPICAL, DIRECTED, Starting on Fri02/27/22 at 0930, [...] cancer Procedures CONSULT TO GENERAL SURGERY OFFICE/OUTPATIENT [facility] 60-74 MINUTES Arsalan Lilly MD [address] [place] [address] Referral ID Status Reason Start Date Expiration Date Visits Requested Visits Authorized [id number] Authorized PCP Requested Referral 11/13/2021 11/13/2022 1 1 Specialty Diagnoses / Procedures Referred By Contac t Referred To Contact Diagnoses 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) Bone metastasis (HCC) Family history of prostate cancer in father Procedures CONSULT TO [facility] CANCER GENETIC COUNSELING MEDICAL GENETICS COUNSELING EACH 30 MINUTES Lillian Lopez MD [address] [phone] [facility] [address] [place] [address] Referral ID Status Reason Start Date Expiration Date Visits Requested Visits Authorized [id number] Authorized PCP Requested Referral Auto-Generate d Referral 02/14/2023 1 1 Specialty Diagnoses / Procedures Referred By Contac t Referred To Contact Cardiology Diagnoses SOB (shortness of breath) Chest pain, unspecified type Procedures CONSULT TO CARDIOLOGY OFFICE/OUTPATIENT [facility] 60 MINUTES PodlogCatherine verduzco APRN.CNP [address] [place] [address] Referral ID Status Reason Start Date Expiration Date Visits Requested Visits Authorized [id number] Authorized PCP Requested Referral 06/11/2023 06/10/2024 1 1 Specialty Diagnoses / Procedures Referred By Contac t Referred To Contact [facility] Diagnoses SOB (shortness of breath) Chest pain, unspecified type Procedures EXERCISE STRESS ECG (WITHOUT IMAGING) PodlogCatherine verduzco APRN.CNP [address] [place] [address] [facility] [place] [address] [place] [address] Referral ID Status Reason Start Date Expiration Date Visits Requested Visits Authorized [id number] Authorized Auto-Generat ed Referral 06/11/2023 06/10/2024 1 1 Specialty Diagnoses / Procedures Referred By Contac t Referred To Contact [facility] [place] Diagnoses SOB (shortness of breath) Chest pain, unspecified type Procedures ECHO ECHO TTHRC R-T 2D W/WOM-MODE COMPL SPEC&COLR D Podlogar, Catherine, UI ARCHITECT.REPRINT SORTER [address] [place] [address] [facility] Vascular [address] [address] Referral ID Status Reason Start Date Expiration Date Visits Requested Visits Authorized [id number] Authorized Auto-Generat ed Referral 06/11/2023 06/10/2024 1 1 Specialty Diagnoses / Procedures Referred By Contac t Referred To Contact [facility] Diagnoses SOB (shortness of breath) Chest pain, unspecified type Procedures ECG COMPLETE ECG ROUTINE ECG W/LEAST 12 LDS W/I&R Podlogar, Catherien, UI ARCHITECT.REPRINT SORTER [address] [place] [address] [address] Referral ID Status Reason Start Date Expiration Date Visits Requested Visits Authorized [id number] Pending Review Auto-Generat ed Referral 06/11/2023 06/10/2024 1 1 Specialty Diagnoses / Procedures Referred By Contac t Referred To Contact CT IMAGING Diagnoses Prostate cancer metastatic to bone (HCC) Abdominal pain, unspecified abdominal location Acute left-sided low back pain, unspecified whether sciatica present Procedures CT LUMBAR SPINE W IVCON CT LUMBAR SPINE W IVCON CT LUMBAR SPINE W/CONTRAST MATERIAL [place] [address] [address] [place] [address] Referral ID Status Reason Start Date Expiration Date Visits Requested Visits Authorized [id number] Authorized Auto-Generat ed Referral 12/05/2023 01/03/2025 1 1 Specialty Diagnoses / Procedures Referred By Contac t Referred To Contact CT IMAGING Diagnoses Prostate cancer metastatic to bone (HCC) Abdominal pain, unspecified abdominal location Acute left-sided low back pain, unspecified whether sciatica present Procedures CT ABD/PEL WO IVCON CT ABD & PELVIS W/O CONTRAST EllisAnibal robertsianna [address] [place] [address] [place] [address] Referral ID Status Reason Start Date Expiration Date Visits Requested Visits Authorized [id number] Authorized Auto-Generat ed Referral 12/05/2023 01/03/2025 1 1 Referral ID Status Reason Start Date Expiration Date V isits Requested Visits Authorized [id number] Closed Auto-Generate d Referral 12/05/2023 01/03/2025 1 1 Referral ID Status Reason Start Date Expiration Date V isits Requested Visits Authorized [id number] Closed Auto-Generate d Referral 12/05/2023 01/03/2025 1 1 Specialty Diagnoses / Procedures Referred By Contac t Referred To Contact [facility] Diagnoses Left hip pain Procedures CONSULT TO PHYSICAL THERAPY PHYSICAL THERAPY EVALUATION HIGH COMPLEX 45 MINS Podlogar, DORIS Alexander.REPRINT SORTER [address] [place] [address] [facility] [place] [address] [place] [address] Referral ID Status Reason Start Date Expiration Date Visits Requested Visits Authorized [id number] Authorized PCP Requested Referral Auto-Generate d Referral 12/24/2023 12/23/2024 99 99 Specialty Diagnoses / Procedures Referred By Contac t Referred To Contact XR IMAGING Diagnoses Left hip pain Procedures XR HIP GENERAL 3V PELV/AP/LAT LEFT RADEX HIP UNILATERAL WITH PELVIS 2-3 VIEWS Podlogar, DORIS Alexander.REPRINT SORTER [address] [place] [address] [place] [address] Referral ID Status Reason Start Date Expiration Date V isits Requested Visits Authorized [id number] Closed Auto-Generate d Referral 12/24/2023 01/22/2025 1 1 Specialty Diagnoses / Procedures Referred By Contac t Referred To Contact Orthopedics Diagnoses Right hip pain Procedures CONSULT TO ORTHOPAEDICS OFFICE/OUTPATIENT [facility] [place] [address] [place] [address] Referral ID Status Reason Start Date Expiration Date Visits Requested Visits Authorized [id number] Authorized PCP Requested Referral 01/20/2025 1 1 Specialty Diagnoses / Procedures Referred By Contac t Referred To Contact Diagnoses Left inguinal pain LLQ abdominal pain Arsalan Lilly MD [address] [place] [address] Referral ID Status Reason Start Date Expiration Date Visits Re quested Visits Authorized [id number] Closed 1 1 Specialty Diagnoses / Procedures Referred By Contac t Referred To Contact US IMAGING Diagnoses Left inguinal pain LLQ abdominal pain Procedures US DOPPLER COMPLETE DUP-SCAN ARTL KIRSTY ABDL/PEL/SCROT&/RPR ORGN COM Arsalan Lilly MD [address] [place] [address] [facility] Imaging [facility] Referral ID Status Reason Start Date Expiration Date V isits Requested Visits Authorized [id number] Closed Auto-Generate d Referral 02/03/2024 03/04/2025 1 1 Specialty Diagnoses / Procedures Referred By Contac t Referred To Contact US IMAGING Diagnoses Left inguinal pain LLQ abdominal pain Procedures US SCROTUM AND CONTENTS US SCROTUM & CONTENTS Arsalan Lilly MD [address] [place] [address] Us Imaging [facility] Referral ID Status Reason Start Date Expiration Date V isits Requested Visits Authorized [id number] Closed Auto-Generate d Referral 02/03/2024 03/04/2025 1 1 Specialty Diagnoses / Procedures Referred By Contac t Referred To Contact Pain Management Diagnoses Osteoarthritis of spine with radiculopathy, lumbar region Chronic left hip pain Procedures CONSULT TO PAIN MGT OFFICE/OUTPATIENT [facility] MDM 60 MINUTES Vicente Roach MD [address] [place] [address] Pallavi Foster, UI ARCHITECT.REPRINT SORTER [address] [place] [address] Referral ID Status Reason Start Date Expiration Date Visits Requested Visits Authorized [id number] Authorized PCP Requested Referral 03/22/2025 1 1 Specialty Diagnoses / Procedures Referred By Contac t Referred To Contact Dermatology Diagnoses Squamous cell carcinoma of scalp Procedures MOHS OFFICE/OUTPATIENT [facility] 60 MINUTES Richie Dejesus MD [address] [place] [address] Referral ID Status Reason Start Date Expiration Date Visits Requested Visits Authorized [id number] Authorized PCP Requested Referral 2024 2025 1 [...] Open wound of scalp with complication Ju ly 2024 9:06am Surgical wound breakdown October 14, 2024 9:06am Wound dehiscence October 14, 2024 9:06 am Chief Complaint Admit Date SEPSIS September 18, 2024 3:12 pm SEPSIS September 18, 2024 4:01 pm SEPSIS September 19, 2024 10:3 0am SEPSIS September 20, 2024 8:45 am SEPSIS September 21, 2024 10:0 4am SEPSIS September 21, 2024 6:27 pm SEPSIS September 22, 2024 7:20 am SEPSIS September 22, 2024 6:54 pm wound October 14, 2024 9:06 am SEPTIC SHOCK October 15, 2024 8:35 am Reason for Visit Admit Date Acute acalculous cholecystitis September 3:12pm Acute kidney injury September 18, 2024 3:12 pm Sepsis September 18, 2024 3:12 pm 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 (S October 14, 2024 9:06am History of prostate cancer October 14 9:06am Open wound of scalp with complication Ju ly 2024 9:06am Surgical wound breakdown October 14, 2024 9:06am Wound dehiscence October 14, 2024 9:06 am Acute hypotension October 15, 2024 8:35 am Hypotension October 15, 2024 8:35 am Prostate cancer October 15, 2024 8:35 am Pyrexia October 15, 2024 8:35 am Scleral icterus October 15, 2024 8:35 am SIRS (systemic inflammatory response syn drome) October 15, 2024 8:35am Chief Complaint Admit Date SEPSIS September 18, 2024 3:12 pm SEPSIS September 18, 2024 4:01 pm SEPSIS September 19, 2024 10:3 0am SEPSIS September 20, 2024 8:45 am SEPSIS September 21, 2024 10:0 4am SEPSIS September 21, 2024 6:27 pm SEPSIS September 22, 2024 7:20 am SEPSIS September 22, 2024 6:54 pm wound October 14, 2024 9:06 am wound October 14, 2024 10:0 8am SEPTIC SHOCK October 15, 2024 8:35 am SEPTIC SHOCK October 15, 2024 10:0 0am SEPTIC SHOCK October 16, 2024 7:11 am SEPTIC SHOCK October 17, 2024 6:53 am SEPTIC SHOCK October 18, 2024 10:3 9am SEPTIC SHOCK October 19, 2024 7:23 am Reason for Visit Admit Date Acute [...] Wound dehiscence October 14, 2024 9:06 am Acute hypotension October 15, 2024 8:35 am Hypotension October 15, 2024 8:35 am Prostate cancer October 15, 2024 8:35 am Pyrexia October 15, 2024 8:35 am Scleral icterus October 15, 2024 8:35 am Septic shock October 15, 2024 8:35 am SIRS (systemic inflammatory response syn drome) October 15, 2024 8:35am Additional Source Comments (unrecognized sect ion and content) No Status Records FoundNo Status Records FoundNo Status Records FoundNo Status Records FoundNo Status Records FoundNo Status Records FoundNo Status Records FoundNo Status Records FoundNo Status Records Found INFORMATION SOURCE (unrecogn ized section and content) DATE CREATED AUTHOR 09/30/2017 [facility] DATE CREATED AUTHOR AUTHOR'S ORGANIZ ATION 10/01/2017 [facility]ical Center DATE CREATED AUTHOR AUTHOR'S ORGANIZ ATION 09/10/2021 [facility] DATE CREATED AUTHOR AUTHOR'S ORGANIZ ATION 05/08/2022 [facility] dical Center DATE CREATED AUTHOR AUTHOR'S ORGANIZ ATION 10/18/2022 [facility] ([place]) DATE CREATED AUTHOR AUTHOR'S ORGANIZ ATION 11/13/2023 [facility] DATE CREATED AUTHOR AUTHOR'S ORGANIZ ATION 12/03/2024 [facility] nter DATE CREATED AUTHOR AUTHOR'S ORGANIZ ATION 01/11/2025 [facility] DATE CREATED AUTHOR AUTHOR'S ORGANIZ ATION 02/01/2025 [facility] Source Comments (unrecognize d section and content) In the event this informatio n is protected by the Federal Confidentiality of Alcohol and Drug Abuse Patient Records regulations: The Federal rules restrict any use of the information to criminally investigate or prosecute any alcohol or drug abuse patient.[facility] the event this information is protected by the Federal Confidentiality of Alcohol and Drug Abuse Patient Records regulations: The Federal rules restrict any use of the information to criminally investigate or prosecute any alcohol or drug abuse patient.[facility] Hospital[facility] the event this information is protected by the Federal Confidentiality of Alcohol and Drug Abuse Patient Records regulations: The Federal rules restrict any use of the information to criminally investigate or prosecute any alcohol or drug abuse patient.[facility] Hospital[facility] the event this information is protected by the Federal Confidentiality of Alcohol and Drug Abuse Patient Records regulations: The Federal rules restrict any use of the information to criminally investigate or prosecute any alcohol or drug abuse patient.[facility] HospitalIn the event this information is protected by the Federal Confidentiality of Alcohol and Drug Abuse Patient Records regulations: The Federal rules restrict any use of the information to criminally investigate or prosecute any alcohol or drug abuse patient.[facility] HospitalIn the event this information is protected by the Federal Confidentiality of Alcohol and Drug Abuse Patient Records regulations: The Federal rules restrict any use of the information to criminally investigate or prosecute any alcohol or drug abuse patient.[facility] HospitalIn the event this information is protected by the Federal Confidentiality of Alcohol and Drug Abuse Patient Records regulations: The Federal rules restrict any use of the information to criminally investigate or prosecute any alcohol or drug abuse patient.[facility] HospitalIn the event this information is protected by the Federal Confidentiality of Alcohol and Drug Abuse Patient Records regulations: The Federal rules restrict any use of the information to criminally investigate or prosecute any alcohol or drug abuse patient.[facility] Hospital[facility] the event this information is protected by the Federal Confidentiality of Alcohol and Drug Abuse Patient Records regulations: The Federal rules restrict any use of the information to criminally investigate or prosecute any alcohol or drug abuse patient.[facility] HospitalIn the event this information is protected by the Federal Confidentiality of Alcohol and Drug Abuse Patient Records regulations: The Federal rules restrict any use of the information to criminally investigate or prosecute any alcohol or drug abuse patient.[facility] HospitalIn the event this information is protected by the Federal Confidentiality of Alcohol and Drug Abuse Patient Records regulations: The Federal rules restrict any use of the information to criminally investigate or prosecute any alcohol or drug abuse patient.[facility] HospitalIn the event this information is protected by the Federal Confidentiality of Alcohol and Drug Abuse Patient Records regulations: The Federal rules restrict any use of the information to criminally investigate or prosecute any alcohol or drug abuse patient.[facility] HospitalIn the event this information is protected by the Federal Confidentiality of Alcohol and Drug Abuse Patient Records regulations: The Federal rules restrict any use of the information to criminally investigate or prosecute any alcohol or drug abuse patient.[facility] HospitalIn the event this information is protected by the Federal Confidentiality of Alcohol and Drug Abuse Patient Records regulations: The Federal rules restrict any use of the information to criminally investigate or prosecute any alcohol or drug abuse patient.[facility] HospitalIn the event this information is protected by the Federal Confidentiality of Alcohol and Drug Abuse Patient Records regulations: The Federal rules restrict any use of the information to criminally investigate or prosecute any alcohol or drug abuse patient.[facility]In the event this information is protected by the Federal Confidentiality of Alcohol and Drug Abuse Patient Records regulations: The Federal rules restrict any use of the information to criminally investigate or prosecute any alcohol or drug abuse patient.[facility] HospitalIn the event this information is protected by the Federal Confidentiality of Alcohol and Drug Abuse Patient Records regulations: The Federal rules restrict any use of the information to criminally investigate or prosecute any alcohol or drug abuse patient.[facility] HospitalIn the event this information is protected by the Federal Confidentiality of Alcohol and Drug Abuse Patient Records regulations: The Federal rules restrict any use of the information to criminally investigate or prosecute any alcohol or drug abuse patient.[facility] HospitalIn the event this information is protected by the Federal Confidentiality of Alcohol and Drug Abuse Patient Records regulations: The Federal rules restrict any use of the information to criminally investigate or prosecute any alcohol or drug abuse patient.[facility] HospitalIn the event this information is protected by the Federal Confidentiality of Alcohol and Drug Abuse Patient Records regulations: The Federal rules restrict any use of the information to criminally investigate or prosecute any alcohol or drug abuse patient.[facility] HospitalIn the event this information is protected by the Federal Confidentiality of Alcohol and Drug Abuse Patient Records regulations: The Federal rules restrict any use of the information to criminally investigate or prosecute any alcohol or drug abuse patient.[facility] HospitalIn the event this information is protected by the Federal Confidentiality of Alcohol and Drug Abuse Patient Records regulations: The Federal rules restrict any use of the information to criminally investigate or prosecute any alcohol or drug abuse patient.[facility] HospitalIn the event this information is protected by the Federal Confidentiality of Alcohol and Drug Abuse Patient Records regulations: The Federal rules restrict any use of the information to criminally investigate or prosecute any alcohol or drug abuse patient.[facility] HospitalIn the event this information is protected by the Federal Confidentiality of Alcohol and Drug Abuse Patient Records regulations: The Federal rules restrict any use of the information to criminally investigate or prosecute any alcohol or drug abuse patient.[facility] HospitalIn the event this information is protected by the Federal Confidentiality of Alcohol and Drug Abuse Patient Records regulations: The Federal rules restrict any use of the information to criminally investigate or prosecute any alcohol or drug abuse patient.[facility] HospitalIn the event this information is protected by the Federal Confidentiality of Alcohol and Drug Abuse Patient Records regulations: The Federal rules restrict any use of the information to criminally investigate or prosecute any alcohol or drug abuse patient.[facility] HospitalIn the event this information is protected by the Federal Confidentiality of Alcohol and Drug Abuse Patient Records regulations: The Federal rules restrict any use of the information to criminally investigate or prosecute any alcohol or drug abuse patient.[facility] HospitalIn the event this information is protected by the Federal Confidentiality of Alcohol and Drug Abuse Patient Records regulations: The Federal rules restrict any use of the information to criminally investigate or prosecute any alcohol or drug abuse patient.[facility] HospitalIn the event this information is protected by the Federal Confidentiality of Alcohol and Drug Abuse Patient Records regulations: The Federal rules restrict any use of the information to criminally investigate or prosecute any alcohol or drug abuse patient.[facility] HospitalIn the event this information is protected by the Federal Confidentiality of Alcohol and Drug Abuse Patient Records regulations: The Federal rules restrict any use of the information to criminally investigate or prosecute any alcohol or drug abuse patient.[facility] HospitalIn the event this information is protected by the Federal Confidentiality of Alcohol and Drug Abuse Patient Records regulations: The Federal rules restrict any use of the information to criminally investigate or prosecute any alcohol or drug abuse patient.[facility] HospitalIn the event this information is protected by the Federal Confidentiality of Alcohol and Drug Abuse Patient Records regulations: The Federal rules restrict any use of the information to criminally investigate or prosecute any alcohol or drug abuse patient.[facility] HospitalIn the event this information is protected by the Federal Confidentiality of Alcohol and Drug Abuse Patient Records regulations: The Federal rules restrict any use of the information to criminally investigate or prosecute any alcohol or drug abuse patient.[facility] HospitalIn the event this information is protected by the Federal Confidentiality of Alcohol and Drug Abuse Patient Records regulations: The Federal rules restrict any use of the information to criminally investigate or prosecute any alcohol or drug abuse patient.[facility] HospitalIn the event this information is protected by the Federal Confidentiality of Alcohol and Drug Abuse Patient Records regulations: The Federal rules restrict any use of the information to criminally investigate or prosecute any alcohol or drug abuse patient.[facility] HospitalIn the event this information is protected by the Federal Confidentiality of Alcohol and Drug Abuse Patient Records regulations: The Federal rules restrict any use of the information to criminally investigate or prosecute any alcohol or drug abuse patient.[facility] HospitalIn the event this information is protected by the Federal Confidentiality of Alcohol and Drug Abuse Patient Records regulations: The Federal rules restrict any use of the information to criminally investigate or prosecute any alcohol or drug abuse patient.[facility] HospitalIn the event this information is protected by the Federal Confidentiality of Alcohol and Drug Abuse Patient Records regulations: The Federal rules restrict any use of the information to criminally investigate or prosecute any alcohol or drug abuse patient.[facility] HospitalIn the event this information is protected by the Federal Confidentiality of Alcohol and Drug Abuse Patient Records regulations: The Federal rules restrict any use of the information to criminally investigate or prosecute any alcohol or drug abuse patient.[facility] HospitalIn the event this information is protected by the Federal Confidentiality of Alcohol and Drug Abuse Patient Records regulations: The Federal rules restrict any use of the information to criminally investigate or prosecute any alcohol or drug abuse patient.[facility] HospitalIn the event this information is protected by the Federal Confidentiality of Alcohol and Drug Abuse Patient Records regulations: The Federal rules restrict any use of the information to criminally investigate or prosecute any alcohol or drug abuse patient.[facility] HospitalIn the event this information is protected by the Federal Confidentiality of Alcohol and Drug Abuse Patient Records regulations: The Federal rules restrict any use of the information to criminally investigate or prosecute any alcohol or drug abuse patient.[facility] HospitalIn the event this information is protected by the Federal Confidentiality of Alcohol and Drug Abuse Patient Records regulations: The Federal rules restrict any use of the information to criminally investigate or prosecute any alcohol or drug abuse patient.[facility] HospitalIn the event this information is protected by the Federal Confidentiality of Alcohol and Drug Abuse Patient Records regulations: The Federal rules restrict any use of the information to criminally investigate or prosecute any alcohol or drug abuse patient.[facility] HospitalIn the event this information is protected by the Federal Confidentiality of Alcohol and Drug Abuse Patient Records regulations: The Federal rules restrict any use of the information to criminally investigate or prosecute any alcohol or drug abuse patient.[facility] HospitalIn the event this information is protected by the Federal Confidentiality of Alcohol and Drug Abuse Patient Records regulations: The Federal rules restrict any use of the information to criminally investigate or prosecute any alcohol or drug abuse patient.[facility] HospitalIn the event this information is protected by the Federal Confidentiality of Alcohol and Drug Abuse Patient Records regulations: The Federal rules restrict any use of the information to criminally investigate or prosecute any alcohol or drug abuse patient.[facility] HospitalIn the event this information is protected by the Federal Confidentiality of Alcohol and Drug Abuse Patient Records regulations: The Federal rules restrict any use of the information to criminally investigate or prosecute any alcohol or drug abuse patient.[facility] HospitalIn the event this information is protected by the Federal Confidentiality of Alcohol and Drug Abuse Patient Records regulations: The Federal rules restrict any use of the information to criminally investigate or prosecute any alcohol or drug abuse patient.[facility] HospitalIn the event this information is protected by the Federal Confidentiality of Alcohol and Drug Abuse Patient Records regulations: The Federal rules restrict any use of the information to criminally investigate or prosecute any alcohol or drug abuse patient.[facility] HospitalIn the event this information is protected by the Federal Confidentiality of Alcohol and Drug Abuse Patient Records regulations: The Federal rules restrict any use of the information to criminally investigate or prosecute any alcohol or drug abuse patient.[facility] HospitalIn the event this information is protected by the Federal Confidentiality of Alcohol and Drug Abuse Patient Records regulations: The Federal rules restrict any use of the information to criminally investigate or prosecute any alcohol or drug abuse patient.[facility] HospitalIn the event this information is protected by the Federal Confidentiality of Alcohol and Drug Abuse Patient Records regulations: The Federal rules restrict any use of the information to criminally investigate or prosecute any alcohol or drug abuse patient.[facility] HospitalIn the event this information is protected by the Federal Confidentiality of Alcohol and Drug Abuse Patient Records regulations: The Federal rules restrict any use of the information to criminally investigate or prosecute any alcohol or drug abuse patient.[facility] HospitalIn the event this information is protected by the Federal Confidentiality of Alcohol and Drug Abuse Patient Records regulations: The Federal rules restrict any use of the information to criminally investigate or prosecute any alcohol or drug abuse patient.[facility] HospitalIn the event this information is protected by the Federal Confidentiality of Alcohol and Drug Abuse Patient Records regulations: The Federal rules restrict any use of the information to criminally investigate or prosecute any alcohol or drug abuse patient.[facility] HospitalIn the event this information is protected by the Federal Confidentiality of Alcohol and Drug Abuse Patient Records regulations: The Federal rules restrict any use of the information to criminally investigate or prosecute any alcohol or drug abuse patient.[facility] HospitalIn the event this information is protected by the Federal Confidentiality of Alcohol and Drug Abuse Patient Records regulations: The Federal rules restrict any use of the information to criminally investigate or prosecute any alcohol or drug abuse patient.[facility] HospitalIn the event this information is protected by the Federal Confidentiality of Alcohol and Drug Abuse Patient Records regulations: The Federal rules restrict any use of the information to criminally investigate or prosecute any alcohol or drug abuse patient.[facility] HospitalIn the event this information is protected by the Federal Confidentiality of Alcohol and Drug Abuse Patient Records regulations: The Federal rules restrict any use of the information to criminally investigate or prosecute any alcohol or drug abuse patient.[facility] HospitalIn the event this information is protected by the Federal Confidentiality of Alcohol and Drug Abuse Patient Records regulations: The Federal rules restrict any use of the information to criminally investigate or prosecute any alcohol or drug abuse patient.[facility] HospitalIn the event this information is protected by the Federal Confidentiality of Alcohol and Drug Abuse Patient Records regulations: The Federal rules restrict any use of the information to criminally investigate or prosecute any alcohol or drug abuse patient.[facility] HospitalIn the event this information is protected by the Federal Confidentiality of Alcohol and Drug Abuse Patient Records regulations: The Federal rules restrict any use of the information to criminally investigate or prosecute any alcohol or drug abuse patient.[facility] HospitalIn the event this information is protected by the Federal Confidentiality of Alcohol and Drug Abuse Patient Records regulations: The Federal rules restrict any use of the information to criminally investigate or prosecute any alcohol or drug abuse patient.[facility] HospitalIn the event this information is protected by the Federal Confidentiality of Alcohol and Drug Abuse Patient Records regulations: The Federal rules restrict any use of the information to criminally investigate or prosecute any alcohol or drug abuse patient.[facility] HospitalIn the event this information is protected by the Federal Confidentiality of Alcohol and Drug Abuse Patient Records regulations: The Federal rules restrict any use of the information to criminally investigate or prosecute any alcohol or drug abuse patient.[facility] HospitalIn the event this information is protected by the Federal Confidentiality of Alcohol and Drug Abuse Patient Records regulations: The Federal rules restrict any use of the information to criminally investigate or prosecute any alcohol or drug abuse patient.[facility] HospitalIn the event this information is protected by the Federal Confidentiality of Alcohol and Drug Abuse Patient Records regulations: The Federal rules restrict any use of the information to criminally investigate or prosecute any alcohol or drug abuse patient.[facility] HospitalIn the event this information is protected by the Federal Confidentiality of Alcohol and Drug Abuse Patient Records regulations: The Federal rules restrict any use of the information to criminally investigate or prosecute any alcohol or drug abuse patient.[facility] HospitalIn the event this information is protected by the Federal Confidentiality of Alcohol and Drug Abuse Patient Records regulations: The Federal rules restrict any use of the information to criminally investigate or prosecute any alcohol or drug abuse patient.[facility] HospitalIn the event this information is protected by the Federal Confidentiality of Alcohol and Drug Abuse Patient Records regulations: The Federal rules restrict any use of the information to criminally investigate or prosecute any alcohol or drug abuse patient.[facility]In the event this information is protected by the Federal Confidentiality of Alcohol and Drug Abuse Patient Records regulations: The Federal rules restrict any use of the information to criminally investigate or prosecute any alcohol or drug abuse patient.[facility] HospitalIn the event this information is protected by the Federal Confidentiality of Alcohol and Drug Abuse Patient Records regulations: The Federal rules restrict any use of the information to criminally investigate or prosecute any alcohol or drug abuse patient.[facility] HospitalIn the event this information is protected by the Federal Confidentiality of Alcohol and Drug Abuse Patient Records regulations: The Federal rules restrict any use of the information to criminally investigate or prosecute any alcohol or drug abuse patient.[facility] HospitalIn the event this information is protected by the Federal Confidentiality of Alcohol and Drug Abuse Patient Records regulations: The Federal rules restrict any use of the information to criminally investigate or prosecute any alcohol or drug abuse patient.[facility] HospitalIn the event this information is protected by the Federal Confidentiality of Alcohol and Drug Abuse Patient Records regulations: The Federal rules restrict any use of the information to criminally investigate or prosecute any alcohol or drug abuse patient.[facility] HospitalIn the event this information is protected by the Federal Confidentiality of Alcohol and Drug Abuse Patient Records regulations: The Federal rules restrict any use of the information to criminally investigate or prosecute any alcohol or drug abuse patient.[facility] HospitalIn the event this information is protected by the Federal Confidentiality of Alcohol and Drug Abuse Patient Records regulations: The Federal rules restrict any use of the information to criminally investigate or prosecute any alcohol or drug abuse patient.[facility] HospitalIn the event this information is protected by the Federal Confidentiality of Alcohol and Drug Abuse Patient Records regulations: The Federal rules restrict any use of the information to criminally investigate or prosecute any alcohol or drug abuse patient.[facility] HospitalIn the event this information is protected by the Federal Confidentiality of Alcohol and Drug Abuse Patient Records regulations: The Federal rules restrict any use of the information to criminally investigate or prosecute any alcohol or drug abuse patient.[facility] HospitalIn the event this information is protected by the Federal Confidentiality of Alcohol and Drug Abuse Patient Records regulations: The Federal rules restrict any use of the information to criminally investigate or prosecute any alcohol or drug abuse patient.[facility] HospitalIn the event this information is protected by the Federal Confidentiality of Alcohol and Drug Abuse Patient Records regulations: The Federal rules restrict any use of the information to criminally investigate or prosecute any alcohol or drug abuse patient.[facility]In the event this information is protected by the Federal Confidentiality of Alcohol and Drug Abuse Patient Records regulations: The Federal rules restrict any use of the information to criminally investigate or prosecute any alcohol or drug abuse patient.[facility]In the event this information is protected by the Federal Confidentiality of Alcohol and Drug Abuse Patient Records regulations: The Federal rules restrict any use of the information to criminally investigate or prosecute any alcohol or drug abuse patient.[facility]In the event this information is protected by the Federal Confidentiality of Alcohol and Drug Abuse Patient Records regulations: The Federal rules restrict any use of the information to criminally investigate or prosecute any alcohol or drug abuse patient.[facility]In the event this information is protected by the Federal Confidentiality of Alcohol and Drug Abuse Patient Records regulations: The Federal rules restrict any use of the information to criminally investigate or prosecute any alcohol or drug abuse patient.[facility]In the event this information is protected by the Federal Confidentiality of Alcohol and Drug Abuse Patient Records regulations: The Federal rules restrict any use of the information to criminally investigate or prosecute any alcohol or drug abuse patient.[facility]In the event this information is protected by the Federal Confidentiality of Alcohol and Drug Abuse Patient Records regulations: The Federal rules restrict any use of the information to criminally investigate or prosecute any alcohol or drug abuse patient.[facility]In the event this information is protected by the Federal Confidentiality of Alcohol and Drug Abuse Patient Records regulations: The Federal rules restrict any use of the information to criminally investigate or prosecute any alcohol or drug abuse patient.[facility] HospitalIn the event this information is protected by the Federal Confidentiality of Alcohol and Drug Abuse Patient Records regulations: The Federal rules restrict any use of the information to criminally investigate or prosecute any alcohol or drug abuse patient.[facility]In the event this information is protected by the Federal Confidentiality of Alcohol and Drug Abuse Patient Records regulations: The Federal rules restrict any use of the information to criminally investigate or prosecute any alcohol or drug abuse patient.[facility]In the event this information is protected by the Federal Confidentiality of Alcohol and Drug Abuse Patient Records regulations: The Federal rules restrict any use of the information to criminally investigate or prosecute any alcohol or drug abuse patient.[facility]In the event this information is protected by the Federal Confidentiality of Alcohol and Drug Abuse Patient Records regulations: The Federal rules restrict any use of the information to criminally investigate or prosecute any alcohol or drug abuse patient.[facility]In the event this information is protected by the Federal Confidentiality of Alcohol and Drug Abuse Patient Records regulations: The Federal rules restrict any use of the information to criminally investigate or prosecute any alcohol or drug abuse patient.[facility]In the event this information is protected by the Federal Confidentiality of Alcohol and Drug Abuse Patient Records regulations: The Federal rules restrict any use of the information to criminally investigate or prosecute any alcohol or drug abuse patient.[facility]In the event this information is protected by the Federal Confidentiality of Alcohol and Drug Abuse Patient Records regulations: The Federal rules restrict any use of the information to criminally investigate or prosecute any alcohol or drug abuse patient.[facility] HospitalIn the event this information is protected by the Federal Confidentiality of Alcohol and Drug Abuse Patient Records regulations: The Federal rules restrict any use of the information to criminally investigate or prosecute any alcohol or drug abuse patient.[facility] HospitalIn the event this information is protected by the Federal Confidentiality of Alcohol and Drug Abuse Patient Records regulations: The Federal rules restrict any use of the information to criminally investigate or prosecute any alcohol or drug abuse patient.[facility] HospitalIn the event this information is protected by the Federal Confidentiality of Alcohol and Drug Abuse Patient Records regulations: The Federal rules restrict any use of the information to criminally investigate or prosecute any alcohol or drug abuse patient.[facility] HospitalIn the event this information is protected by the Federal Confidentiality of Alcohol and Drug Abuse Patient Records regulations: The Federal rules restrict any use of the information to criminally investigate or prosecute any alcohol or drug abuse patient.[facility] HospitalIn the event this information is protected by the Federal Confidentiality of Alcohol and Drug Abuse Patient Records regulations: The Federal rules restrict any use of the information to criminally investigate or prosecute any alcohol or drug abuse patient.[facility] [facility]In the event this information is protected by the Federal Confidentiality of Alcohol and Drug Abuse Patient Records regulations: The Federal rules restrict any use of the information to criminally investigate or prosecute any alcohol or drug abuse patient.[facility]In the event this information is protected by the Federal Confidentiality of Alcohol and Drug Abuse Patient Records regulations: The Federal rules restrict any use of the information to criminally investigate or prosecute any alcohol or drug abuse patient.[facility]In the event this information is protected by the Federal Confidentiality of Alcohol and Drug Abuse Patient Records regulations: The Federal rules restrict any use of the information to criminally investigate or prosecute any alcohol or drug abuse patient.[facility]In the event this information is protected by the Federal Confidentiality of Alcohol and Drug Abuse Patient Records regulations: The Federal rules restrict any use of the information to criminally investigate or prosecute any alcohol or drug abuse patient.[facility]In the event this information is protected by the Federal Confidentiality of Alcohol and Drug Abuse Patient Records regulations: The Federal rules restrict any use of the information to criminally investigate or prosecute any alcohol or drug abuse patient.[facility]In the event this information is protected by the Federal Confidentiality of Alcohol and Drug Abuse Patient Records regulations: The Federal rules restrict any use of the information to criminally investigate or prosecute any alcohol or drug abuse patient.[facility]In the event this information is protected by the Federal Confidentiality of Alcohol and Drug Abuse Patient Records regulations: The Federal rules restrict any use of the information to criminally investigate or prosecute any alcohol or drug abuse patient.[facility]In the event this information is protected by the Federal Confidentiality of Alcohol and Drug Abuse Patient Records regulations: The Federal rules restrict any use of the information to criminally investigate or prosecute any alcohol or drug abuse patient.[facility]In the event this information is protected by the Federal Confidentiality of Alcohol and Drug Abuse Patient Records regulations: The Federal rules restrict any use of the information to criminally investigate or prosecute any alcohol or drug abuse patient.[facility]In the event this information is protected by the Federal Confidentiality of Alcohol and Drug Abuse Patient Records regulations: The Federal rules restrict any use of the information to criminally investigate or prosecute any alcohol or drug abuse patient.[facility]In the event this information is protected by the Federal Confidentiality of Alcohol and Drug Abuse Patient Records regulations: The Federal rules restrict any use of the information to criminally investigate or prosecute any alcohol or drug abuse patient.[facility]In the event this information is protected by the Federal Confidentiality of Alcohol and Drug Abuse Patient Records regulations: The Federal rules restrict any use of the information to criminally investigate or prosecute any alcohol or drug abuse patient.[facility]In the event this information is protected by the Federal Confidentiality of Alcohol and Drug Abuse Patient Records regulations: The Federal rules restrict any use of the information to criminally investigate or prosecute any alcohol or drug abuse patient.[facility]In the event this information is protected by the Federal Confidentiality of Alcohol and Drug Abuse Patient Records regulations: The Federal rules restrict any use of the information to criminally investigate or prosecute any alcohol or drug abuse patient.[facility]In the event this information is protected by the Federal Confidentiality of Alcohol and Drug Abuse Patient Records regulations: The Federal rules restrict any use of the information to criminally investigate or prosecute any alcohol or drug abuse patient.[facility]In the event this information is protected by the Federal Confidentiality of Alcohol and Drug Abuse Patient Records regulations: The Federal rules restrict any use of the information to criminally investigate or prosecute any alcohol or drug abuse patient.[facility]In the event this information is protected by the Federal Confidentiality of Alcohol and Drug Abuse Patient Records regulations: The Federal rules restrict any use of the information to criminally investigate or prosecute any alcohol or drug abuse patient.[facility]In the event this information is protected by the Federal Confidentiality of Alcohol and Drug Abuse Patient Records regulations: The Federal rules restrict any use of the information to criminally investigate or prosecute any alcohol or drug abuse patient.[facility]In the event this information is protected by the Federal Confidentiality of Alcohol and Drug Abuse Patient Records regulations: The Federal rules restrict any use of the information to criminally investigate or prosecute any alcohol or drug abuse patient.[facility]In the event this information is protected by the Federal Confidentiality of Alcohol and Drug Abuse Patient Records regulations: The Federal rules restrict any use of the information to criminally investigate or prosecute any alcohol or drug abuse patient.[facility]In the event this information is protected by the Federal Confidentiality of Alcohol and Drug Abuse Patient Records regulations: The Federal rules restrict any use of the information to criminally investigate or prosecute any alcohol or drug abuse patient.[facility]In the event this information is protected by the Federal Confidentiality of Alcohol and Drug Abuse Patient Records regulations: The Federal rules restrict any use of the information to criminally investigate or prosecute any alcohol or drug abuse patient.[facility]In the event this information is protected by the Federal Confidentiality of Alcohol and Drug Abuse Patient Records regulations: The Federal rules restrict any use of the information to criminally investigate or prosecute any alcohol or drug abuse patient.[facility]In the event this information is protected by the Federal Confidentiality of Alcohol and Drug Abuse Patient Records regulations: The Federal rules restrict any use of the information to criminally investigate or prosecute any alcohol or drug abuse patient.[facility]In the event this information is protected by the Federal Confidentiality of Alcohol and Drug Abuse Patient Records regulations: The Federal rules restrict any use of the information to criminally investigate or prosecute any alcohol or drug abuse patient.[facility]In the event this information is protected by the Federal Confidentiality of Alcohol and Drug Abuse Patient Records regulations: The Federal rules restrict any use of the information to criminally investigate or prosecute any alcohol or drug abuse patient.[facility]In the event this information is protected by the Federal Confidentiality of Alcohol and Drug Abuse Patient Records regulations: The Federal rules restrict any use of the information to criminally investigate or prosecute any alcohol or drug abuse patient.[facility]In the event this information is protected by the Federal Confidentiality of Alcohol and Drug Abuse Patient Records regulations: The Federal rules restrict any use of the information to criminally investigate or prosecute any alcohol or drug abuse patient.[facility]In the event this information is protected by the Federal Confidentiality of Alcohol and Drug Abuse Patient Records regulations: The Federal rules restrict any use of the information to criminally investigate or prosecute any alcohol or drug abuse patient.[facility]In the event this information is protected by the Federal Confidentiality of Alcohol and Drug Abuse Patient Records regulations: The Federal rules restrict any use of the information to criminally investigate or prosecute any alcohol or drug abuse patient.[facility]In the event this information is protected by the Federal Confidentiality of Alcohol and Drug Abuse Patient Records regulations: The Federal rules restrict any use of the information to criminally investigate or prosecute any alcohol or drug abuse patient.[facility]In the event this information is protected by the Federal Confidentiality of Alcohol and Drug Abuse Patient Records regulations: The Federal rules restrict any use of the information to criminally investigate or prosecute any alcohol or drug abuse patient.[facility]In the event this information is protected by the Federal Confidentiality of Alcohol and Drug Abuse Patient Records regulations: The Federal rules restrict any use of the information to criminally investigate or prosecute any alcohol or drug abuse patient.[facility]In the event this information is protected by the Federal Confidentiality of Alcohol and Drug Abuse Patient Records regulations: The Federal rules restrict any use of the information to criminally investigate or prosecute any alcohol or drug abuse patient.[facility]In the event this information is protected by the Federal Confidentiality of Alcohol and Drug Abuse Patient Records regulations: The Federal rules restrict any use of the information to criminally investigate or prosecute any alcohol or drug abuse patient.[facility]In the event this information is protected by the Federal Confidentiality of Alcohol and Drug Abuse Patient Records regulations: The Federal rules restrict any use of the information to criminally investigate or prosecute any alcohol or drug abuse patient.[facility]In the event this information is protected by the Federal Confidentiality of Alcohol and Drug Abuse Patient Records regulations: The Federal rules restrict any use of the information to criminally investigate or prosecute any alcohol or drug abuse patient.[facility]In the event this information is protected by the Federal Confidentiality of Alcohol and Drug Abuse Patient Records regulations: The Federal rules restrict any use of the information to criminally investigate or prosecute any alcohol or drug abuse patient.[facility]In the event this information is protected by the Federal Confidentiality of Alcohol and Drug Abuse Patient Records regulations: The Federal rules restrict any use of the information to criminally investigate or prosecute any alcohol or drug abuse patient.[facility]In the event this information is protected by the Federal Confidentiality of Alcohol and Drug Abuse Patient Records regulations: The Federal rules restrict any use of the information to criminally investigate or prosecute any alcohol or drug abuse patient.[facility]In the event this information is protected by the Federal Confidentiality of Alcohol and Drug Abuse Patient Records regulations: The Federal rules restrict any use of the information to criminally investigate or prosecute any alcohol or drug abuse patient.[facility]In the event this information is protected by the Federal Confidentiality of Alcohol and Drug Abuse Patient Records regulations: The Federal rules restrict any use of the information to criminally investigate or prosecute any alcohol or drug abuse patient.[facility]In the event this information is protected by the Federal Confidentiality of Alcohol and Drug Abuse Patient Records regulations: The Federal rules restrict any use of the information to criminally investigate or prosecute any alcohol or drug abuse patient.[facility]In the event this information is protected by the Federal Confidentiality of Alcohol and Drug Abuse Patient Records regulations: The Federal rules restrict any use of the information to criminally investigate or prosecute any alcohol or drug abuse patient.[facility]In the event this information is protected by the Federal Confidentiality of Alcohol and Drug Abuse Patient Records regulations: The Federal rules restrict any use of the information to criminally investigate or prosecute any alcohol or drug abuse patient.[facility]In the event this information is protected by the Federal Confidentiality of Alcohol and Drug Abuse Patient Records regulations: The Federal rules restrict any use of the information to criminally investigate or prosecute any alcohol or drug abuse patient.[facility]In the event this information is protected by the Federal Confidentiality of Alcohol and Drug Abuse Patient Records regulations: The Federal rules restrict any use of the information to criminally investigate or prosecute any alcohol or drug abuse patient.[facility]In the event this information is protected by the Federal Confidentiality of Alcohol and Drug Abuse Patient Records regulations: The Federal rules restrict any use of the information to criminally investigate or prosecute any alcohol or drug abuse patient.[facility]In the event this information is protected by the Federal Confidentiality of Alcohol and Drug Abuse Patient Records regulations: The Federal rules restrict any use of the information to criminally investigate or prosecute any alcohol or drug abuse patient.[facility]In the event this information is protected by the Federal Confidentiality of Alcohol and Drug Abuse Patient Records regulations: The Federal rules restrict any use of the information to criminally investigate or prosecute any alcohol or drug abuse patient.[facility]In the event this information is protected by the Federal Confidentiality of Alcohol and Drug Abuse Patient Records regulations: The Federal rules restrict any use of the information to criminally investigate or prosecute any alcohol or drug abuse patient.[facility]In the event this information is protected by the Federal Confidentiality of Alcohol and Drug Abuse Patient Records regulations: The Federal rules restrict any use of the information to criminally investigate or prosecute any alcohol or drug abuse patient.[facility]In the event this information is protected by the Federal Confidentiality of Alcohol and Drug Abuse Patient Records regulations: The Federal rules restrict any use of the information to criminally investigate or prosecute any alcohol or drug abuse patient.[facility]In the event this information is protected by the Federal Confidentiality of Alcohol and Drug Abuse Patient Records regulations: The Federal rules restrict any use of the information to criminally investigate or prosecute any alcohol or drug abuse patient.[facility]In the event this information is protected by the Federal Confidentiality of Alcohol and Drug Abuse Patient Records regulations: The Federal rules restrict any use of the information to criminally investigate or prosecute any alcohol or drug abuse patient.[facility]In the event this information is protected by the Federal Confidentiality of Alcohol and Drug Abuse Patient Records regulations: The Federal rules restrict any use of the information to criminally investigate or prosecute any alcohol or drug abuse patient.[facility]In the event this information is protected by the Federal Confidentiality of Alcohol and Drug Abuse Patient Records regulations: The Federal rules restrict any use of the information to criminally investigate or prosecute any alcohol or drug abuse patient.[facility]In the event this information is protected by the Federal Confidentiality of Alcohol and Drug Abuse Patient Records regulations: The Federal rules restrict any use of the information to criminally investigate or prosecute any alcohol or drug abuse patient.[facility]In the event this information is protected by the Federal Confidentiality of Alcohol and Drug Abuse Patient Records regulations: The Federal rules restrict any use of the information to criminally investigate or prosecute any alcohol or drug abuse patient.[facility]In the event this information is protected by the Federal Confidentiality of Alcohol and Drug Abuse Patient Records regulations: The Federal rules restrict any use of the information to criminally investigate or prosecute any alcohol or drug abuse patient.[facility]In the event this information is protected by the Federal Confidentiality of Alcohol and Drug Abuse Patient Records regulations: The Federal rules restrict any use of the information to criminally investigate or prosecute any alcohol or drug abuse patient.[facility]In the event this information is protected by the Federal Confidentiality of Alcohol and Drug Abuse Patient Records regulations: The Federal rules restrict any use of the information to criminally investigate or prosecute any alcohol or drug abuse patient.[facility]In the event this information is protected by the Federal Confidentiality of Alcohol and Drug Abuse Patient Records regulations: The Federal rules restrict any use of the information to criminally investigate or prosecute any alcohol or drug abuse patient.[facility]In the event this information is protected by the Federal Confidentiality of Alcohol and Drug Abuse Patient Records regulations: The Federal rules restrict any use of the information to criminally investigate or prosecute any alcohol or drug abuse patient.[facility]In the event this information is protected by the Federal Confidentiality of Alcohol and Drug Abuse Patient Records regulations: The Federal rules restrict any use of the information to criminally investigate or prosecute any alcohol or drug abuse patient.[facility]In the event this information is protected by the Federal Confidentiality of Alcohol and Drug Abuse Patient Records regulations: The Federal rules restrict any use of the information to criminally investigate or prosecute any alcohol or drug abuse patient.[facility]In the event this information is protected by the Federal Confidentiality of Alcohol and Drug Abuse Patient Records regulations: The Federal rules restrict any use of the information to criminally investigate or prosecute any alcohol or drug abuse patient.[facility]In the event this information is protected by the Federal Confidentiality of Alcohol and Drug Abuse Patient Records regulations: The Federal rules restrict any use of the information to criminally investigate or prosecute any alcohol or drug abuse patient.[facility]In the event this information is protected by the Federal Confidentiality of Alcohol and Drug Abuse Patient Records regulations: The Federal rules restrict any use of the information to criminally investigate or prosecute any alcohol or drug abuse patient.[facility]In the event this information is protected by the Federal Confidentiality of Alcohol and Drug Abuse Patient Records regulations: The Federal rules restrict any use of the information to criminally investigate or prosecute any alcohol or drug abuse patient.[facility]In the event this information is protected by the Federal Confidentiality of Alcohol and Drug Abuse Patient Records regulations: The Federal rules restrict any use of the information to criminally investigate or prosecute any alcohol or drug abuse patient.[facility]In the event this information is protected by the Federal Confidentiality of Alcohol and Drug Abuse Patient Records regulations: The Federal rules restrict any use of the information to criminally investigate or prosecute any alcohol or drug abuse patient.[facility]In the event this information is protected by the Federal Confidentiality of Alcohol and Drug Abuse Patient Records regulations: The Federal rules restrict any use of the information to criminally investigate or prosecute any alcohol or drug abuse patient.[facility]In the event this information is protected by the Federal Confidentiality of Alcohol and Drug Abuse Patient Records regulations: The Federal rules restrict any use of the information to criminally investigate or prosecute any alcohol or drug abuse patient.[facility]In the event this information is protected by the Federal Confidentiality of Alcohol and Drug Abuse Patient Records regulations: The Federal rules restrict any use of the information to criminally investigate or prosecute any alcohol or drug abuse patient.[facility]In the event this information is protected by the Federal Confidentiality of Alcohol and Drug Abuse Patient Records regulations: The Federal rules restrict any use of the information to criminally investigate or prosecute any alcohol or drug abuse patient.[facility]In the event this information is protected by the Federal Confidentiality of Alcohol and Drug Abuse Patient Records regulations: The Federal rules restrict any use of the information to criminally investigate or prosecute any alcohol or drug abuse patient.[facility]In the event this information is protected by the Federal Confidentiality of Alcohol and Drug Abuse Patient Records regulations: The Federal rules restrict any use of the information to criminally investigate or prosecute any alcohol or drug abuse patient.[facility]In the event this information is protected by the Federal Confidentiality of Alcohol and Drug Abuse Patient Records regulations: The Federal rules restrict any use of the information to criminally investigate or prosecute any alcohol or drug abuse patient.[facility]In the event this information is protected by the Federal Confidentiality of Alcohol and Drug Abuse Patient Records regulations: The Federal rules restrict any use of the information to criminally investigate or prosecute any alcohol or drug abuse patient.[facility]In the event this information is protected by the Federal Confidentiality of Alcohol and Drug Abuse Patient Records regulations: The Federal rules restrict any use of the information to criminally investigate or prosecute any alcohol or drug abuse patient.[facility]In the event this information is protected by the Federal Confidentiality of Alcohol and Drug Abuse Patient Records regulations: The Federal rules restrict any use of the information to criminally investigate or prosecute any alcohol or drug abuse patient.[facility]In the event this information is protected by the Federal Confidentiality of Alcohol and Drug Abuse Patient Records regulations: The Federal rules restrict any use of the information to criminally investigate or prosecute any alcohol or drug abuse patient.[facility]In the event this information is protected by the Federal Confidentiality of Alcohol and Drug Abuse Patient Records regulations: The Federal rules restrict any use of the information to criminally investigate or prosecute any alcohol or drug abuse patient.[facility]In the event this information is protected by the Federal Confidentiality of Alcohol and Drug Abuse Patient Records regulations: The Federal rules restrict any use of the information to criminally investigate or prosecute any alcohol or drug abuse patient.[facility]In the event this information is protected by the Federal Confidentiality of Alcohol and Drug Abuse Patient Records regulations: The Federal rules restrict any use of the information to criminally investigate or prosecute any alcohol or drug abuse patient.[facility]In the event this information is protected by the Federal Confidentiality of Alcohol and Drug Abuse Patient Records regulations: The Federal rules restrict any use of the information to criminally investigate or prosecute any alcohol or drug abuse patient.[facility] HospitalIn the event this information is protected by the Federal Confidentiality of Alcohol and Drug Abuse Patient Records regulations: The Federal rules restrict any use of the information to criminally investigate or prosecute any alcohol or drug abuse patient.[facility] HospitalIn the event this information is protected by the Federal Confidentiality of Alcohol and Drug Abuse Patient Records regulations: The Federal rules restrict any use of the information to criminally investigate or prosecute any alcohol or drug abuse patient.[facility] HospitalIn the event this information is protected by the Federal Confidentiality of Alcohol and Drug Abuse Patient Records regulations: The Federal rules restrict any use of the information to criminally investigate or prosecute any alcohol or drug abuse patient.[facility] HospitalIn the event this information is protected by the Federal Confidentiality of Alcohol and Drug Abuse Patient Records regulations: The Federal rules restrict any use of the information to criminally investigate or prosecute any alcohol or drug abuse patient.[facility] Reason for Visit (unrecogniz ed section and content) Reason Comments Established Patient Specialty Diagnoses / Procedures Referred By Contac t Referred To Contact Diagnoses 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) Procedures DARBEPOETIN DAGMAR, NON-ESRD Dereje Villarreal MD [address] [place] [address] Phone: tel: Dereje Villarreal MD [address] [place] [address] Phone: tel: Referral ID Status Reason Start Date Expiration Date V isits Requested Visits Authorized [id number] Authorized 08/16/2024 02/11/2025 99 99 Reason Comments Imm/Inj Specialty Diagnoses / Procedures Referred By Contac t Referred To Contact Diagnoses 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) Procedures DARBEPOETIN DAGMAR, [place] [address] [place] [address] Phone: tel: fax: Hematology/Oncology [address] [place] [address] Phone: tel: fax: Referral ID Status Reason Start Date Expiration Date V isits Requested Visits Authorized [id number] Authorized 03/13/2023 10/12/2024 99 99 Reason Comments Physical Therapy Specialty Diagnoses / Procedures Referred By Contac t Referred To Contact Physical Therapy / PHYSICAL THERAPY Diagnoses Left hip pain Procedures CONSULT TO PHYSICAL THERAPY PHYSICAL THERAPY EVALUATION HIGH COMPLEX 45 MINS Podlogar, DORIS Alexander.REPRINT SORTER [address] [place] [address] Endy Curran, PT [address] [place] [address] Referral ID Status Reason Start Date Expiration Date Visits Requested Visits Authorized [id number] Authorized PCP Requested Referral Auto-Generate d Referral 04/07/2023 04/06/2024 99 99 Reason Comments PT Progress Note Specialty Diagnoses / Procedures Referred By Contac t Referred To Contact Diagnoses Prostate cancer (HCC) Sanjeev Aranda APRN.REPRINT SORTER [address] [place] [address] [facility] [address] [place] [address] Referral ID Status Reason Start Date Expiration Date V isits Requested Visits Authorized [id number] Authorized 08/20/2022 11/18/2022 99 99 Specialty Diagnoses / Procedures Referred By Contac t Referred To Contact Diagnoses 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) Procedures DARBEPOETIN DAGMAR, [place] [address] [place] [id number] [facility] [address] [place] [address] Referral ID Status Reason Start Date Expiration Date V isits Requested Visits Authorized [id number] Pending Review 03/13/2023 10/22/2023 99 99 Referral ID Status Reason Start Date Expiration Date V isits Requested Visits Authorized [id number] Pending Review 03/13/2023 07/03/2023 99 99 Referral ID Status Reason Start Date Expiration Date V isits Requested Visits Authorized [id number] Authorized 08/20/2022 11/18/2022 99 99 Referral ID Status Reason Start Date Expiration Date V isits Requested Visits Authorized [id number] Pending Review 03/13/2023 05/08/2023 99 99 Reason Comments Refill Request Reason Comments Patient Update Insurance change/pha rmacy change Reason Comments Insurance Change for Xgeva Reason Comments Prostate Cancer Reason Comments Opened In Error Reason Onset Date Comments Refill Request 07/23/2021 Reason Onset Date Comments Refill Request 07/25/2021 Reason Comments Nurse Visit Reason Comments Radiology NM Reason Comments Social Work Services Reason Comments Prostate Problem Specialty Diagnoses / Procedures Referred By Contac t Referred To Contact Urology Diagnoses BPH with elevated PSA Procedures CONSULT TO UROLOGY NEW PATIENT VISIT LEVEL 5 Lillian Lopez MD [address] [place] [address] Referral ID Status Reason Start Date Expiration Date V isits Requested Visits Authorized [id number] Closed PCP Requested Referral 03/13/2021 03/13/2022 1 1 Reason Comments New Patient Up every 1-1 1/2 lexis rs at night to void. Prostate Cancer Specialty Diagnoses / Procedures Referred By Contac t Referred To Contact Medical Oncology / Oncology Diagnoses metastatic prostate cancer/ pt orginally dx with elavted PSA back in mar 2021/ saw urologist [facility] Dr. Sp Mckeon had bx, MRI and [facility]also seeing hem onc Dr. Lillian Lopez at Procedures NEW ONCOLOGY Self, Self Monk III, Jazlyn Burciaga MD [address] [place] [id number] Referral ID Status Reason Start Date Expiration Date V isits Requested Visits Authorized [id number] New Request 09/04/2021 09/29/2022 1 1 Reason [...] Referred By Leslee t Referred To Contact General Surgery Diagnoses External hemorrhoid, thrombosed Procedures CONSULT TO GENERAL SURGERY OFFICE/OUTPATIENT NEW HIGH MDM 60-74 MINUTES Arsalan Lilly MD [address] [place] [address] Referral ID Status Reason Start Date Expiration Date V isits Requested Visits Authorized [id number] Closed PCP Requested Referral 10/30/2022 10/30/2023 1 [...] NEW HIGH MDM 60 MINUTES Podlogar, DORIS Alexander.REPRINT SORTER [address] [place] [address] Referral ID Status Reason Start Date Expiration Date V isits Requested Visits Authorized [id number] Closed PCP Requested Referral 06/11/2023 06/10/2024 1 [...] W/CONTRAST MATERIAL Tee Ellis [address] [place] [address] [place] [address] Referral ID Status Reason Start Date Expiration Date V isits Requested Visits Authorized [id number] Closed Auto-Generate d Referral 12/05/2023 01/03/2025 1 1 Referral ID Status Reason Start Date Expiration Date V isits Requested Visits Authorized [id number] Authorized 03/13/2023 12/16/2023 99 99 Reason Comments Pain Left hip/lower back pain for the last 8 months, this flare up is lasting 7 weeks. Noticed it initially started when oncology started a new med. Reason Comments Results hip xray results Referral ID Status Reason Start Date Expiration Date V isits Requested Visits Authorized [id number] Pending Review 03/13/2023 06/24/2024 99 99 Reason Comments PT Eval Reason Comments Groin Pain Reason Comments Insurance Authorization cyclobenzaprine Referral ID Status Reason Start Date Expiration Date V isits Requested Visits Authorized [id number] Authorized 03/13/2023 08/10/2024 99 99 Reason Comments Medicare Wellness Exam Reason Onset Date Comments Refill Request 03/15/2024 Reason Comments Actinic Keratosis Reason Comments New Pain Referred by Dr. Villarreal Last seen 01/06/17 biceps tendinitis Specialty Diagnoses / Procedures Referred By Contac t Referred To Contact Orthopedics Diagnoses Right hip pain Procedures CONSULT TO ORTHOPAEDICS OFFICE/OUTPATIENT NEW HIGH MDM [address] [place] [address] [place] [address] Referral ID Status Reason Start Date Expiration Date V isits Requested Visits Authorized [id number] Closed PCP Requested Referral 01/21/2024 01/20/2025 1 1 Reason Comments Appointment Appointment cancelle d Reason Comments LESION, SKIN Reason Comments SKIN CANCER Reason Onset Date Comments Refill Request 05/18/2024 Reason Comments Mohs Specialty Diagnoses / Procedures Referred By Contac t Referred To Contact Dermatology Diagnoses Squamous cell carcinoma of scalp Procedures MOHS OFFICE/OUTPATIENT NEW HIGH MDM 60 MINUTES Richie Dejesus MD [address] [place] [address] Phone: tel: fax: Referral ID Status Reason Start Date Expiration Date V isits Requested Visits Authorized [id number] Closed PCP Requested Referral 2024 2025 1 1 Reason Comments Consult Specialty Diagnoses / Procedures Referred By Contac t Referred To Contact Radiation Oncology Diagnoses Squamous cell carcinoma of scalp Procedures RAD/ONC CONSULT OFFICE/OUTPATIENT NEW HIGH MDM 60 MINUTES Madelaine Bronson MD [address] [place] [address] Phone: tel: fax: Referral ID Status Reason Start Date Expiration Date V isits Requested Visits Authorized [id number] Closed PCP Requested Referral 06/17/2024 06/17/2025 1 1 Specialty Diagnoses / Procedures Referred By Contac t Referred To Contact Diagnoses 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) Procedures DARBEPOETIN DAGMAR, NON-ESRD Dereje Villarreal MD [address] [place] [address] Phone: tel: Hematology/Oncology [address] [place] [address] Phone: tel: fax: Reason Comments Follow Up C/o SOB w/ Mild Acti vityEdema Bilat feet/anklesChronic HS coughDr Heather f/u DX: SOB, Chest painEKG TodayStress 11/12/23ECHO 07/03/23Stress 06/17/23 Reason Comments Imm/Inj SQ Specialty Diagnoses / Procedures Referred By Contac t Referred To Contact Diagnoses Prostate cancer (HCC) Sanjeev Aranda APRN.REPRINT SORTER [address] [place] [address] Phone: tel: fax: Sajneev Aranda APRN.[employer]PRINT SORTER [address] [place] [address] Phone: tel: fax: Referral ID Status Reason Start Date Expiration Date V isits Requested Visits Authorized [id number] Authorized 03/02/2025 05/31/2025 99 99 Reason Comments Soil Science Technical Officer - Hospital Follow Up Reason Comments Wound Check Reason Comments Consult SURGERY Reason Comments Request Outside Medical Records Reason Comments Consult Cholangitis Specialty Diagnoses / Procedures Referred By Contac t Referred To Contact General Surgery Diagnoses Cholangitis (HCC) Procedures CONSULT TO GENERAL SURGERY OFFICE/OUTPATIENT [facility] 60 MINUTES Bashir Killian DO [address] [facility] [address] Phone: tel: fax: Referral ID Status Reason Start Date Expiration Date V isits Requested Visits Authorized [id number] Closed PCP Requested Referral 09/23/2024 09/23/2025 1 1 Reason Comments Appointment Orders Reason Comments Transition Of Care Reason Comments Transition Of Care Reason Comments Consult Fu laboratory studie s-CBC and chemistry panel and obtain a follow-up outpatient ultrasound. Reason Comments Pre-Op Visit Reason Comments Pre-Op Update Carotid US Reason Onset Date Comments Refill Request 11/02/2024 Reason Comments New Patient Specialty Diagnoses / Procedures Referred By Contac t Referred To Contact Infectious Diseases Diagnoses Septic shock (HCC) Streptococcal infection Procedures OFFICE/OUTPATIENT NEW HIGH MDM 60 MINUTES Arsalan Lilly MD [address] [place] [address] Phone: tel: fax: Referral ID Status Reason Start Date Expiration Date V isits Requested Visits Authorized [id number] Closed PCP Requested Referral 10/22/2024 10/22/2025 1 1 Reason Comments Results Reason Comments Pre-Op Visit Reason Onset Date Comments Refill Request 12/03/2024 Reason Onset Date Comments Results 12/07/2024 Reason Comments Post Op Care Teams (unrecognized sec tion and content) Team Status: Active Member Role Status Dates Dr. López Lilly MD Primary Care Provider Acti ve Team Status: Inactive Member Role Status Dates Dr. López Lilly MD Primary Care Provider Acti ve Start: [...] Active Member Role Status Dates Dr. López Lilly MD Primary Care Provider Acti ve Start: [...] Active Member Role Status Dates Dr. López Lilly MD Primary Care Provider Acti ve Start: [...] Active Member Role Status Dates Dr. López Lilly MD Primary Care Provider Acti ve Start: [...] Active Member Role Status Dates Dr. López Lilly MD Primary Care Provider Acti ve Start: [...] Active Member Role Status Dates Dr. López Lilly MD Primary Care Provider Acti ve Start: [...] Active Member Role Status Dates Dr. López Lilly MD Primary Care Provider Acti ve Start: [...] Provider Active Sta rt: September 22, 2024 Manager Performance Relationship Specialty Start Date End Date Arsalan Lilly MD [address] [place] [address] PCP - General Family Practice 12/08/20 Natalya Dorsey RN [address] [place] [facility] [address] Enforcement Officer Hematology/Oncology 05/03/21 Manager Performance Relationship Specialty Start Date End Date Arsalan Lilly MD [address] [place] [address] PCP - General Family Practice 12/08/20 Natalya Dorsey RN [address] [place] [address] Enforcement Officer Hematology/Oncology 05/03/21 Manager Performance Relationship Specialty Start Date End Date Arsalan Lilly MD [address] [place] [address] PCP - General Family Practice 12/08/20 Natalya Dorsey RN [address] [place] [address] Enforcement Officer Hematology/Oncology 05/03/21 Manager Performance Relationship Specialty Start Date End Date Arsalan Lilly MD [address] [facility] [place] [address] PCP - General Family Practice 12/08/20 Natalya Dorsey, RN [address] [place] [place] [address] Enforcement Officer Hematology/Oncology 05/03/21 Manager Performance Relationship Specialty Start Date End Date Arsalan Lilly MD [address] [facility] [place] [address] PCP - General Family Practice 12/08/20 Natalya Dorsey, RN [address] [facility] [place] [address] Enforcement Officer Hematology/Oncology 05/03/21 Manager Performance Relationship Specialty Start Date End Date Arsalna Lilly MD [address] [facility] [place] [address] PCP - General Family Practice 12/08/20 Natalya Dorsey, RN [address] [place] [address] Enforcement Officer Hematology/Oncology 05/03/21 Manager Performance Relationship Specialty Start Date End Date Arsalan Lilly MD [address] [facility] [place] [address] PCP - General Family Practice 12/08/20 Natalya Dorsey, RN [address] [place] [address] Enforcement Officer Hematology/Oncology 05/03/21 Manager Performance Relationship Specialty Start Date End Date Arsalan Lilly MD [address] [facility] [place] [address] PCP - General Family Practice 12/08/20 Natalya Dorsey RN [address] [place] [address] Specialty Soil Science Technical Officer Hematology/Oncology 05/03/21 Manager Performance Relationship Specialty Start Date End Date Arsalan Lilly MD [address] [facility] [place] [address] PCP - General Family Practice 12/08/20 Natalya Dorsey RN [address] [place] [address] Specialty Soil Science Technical Officer Hematology/Oncology 05/03/21 Manager Performance Relationship Specialty Start Date End Date Arsalan Lilly MD [address] [facility] [place] [address] PCP - General Family Practice 12/08/20 Natalya Dorsey RN [address] [place] [address] Specialty Soil Science Technical Officer Hematology/Oncology 05/03/21 Manager Performance Relationship Specialty Start Date End Date Arsalan Lilly MD [address] [facility] [place] [address] PCP - General Family Practice 12/08/20 Natalya Dorsey RN [address] [place] [address] Specialty Soil Science Technical Officer Hematology/Oncology 05/03/21 Manager Performance Relationship Specialty Start Date End Date Arsalan Lilly MD [address] [place] [address] PCP - General Family Practice 12/08/20 Natalya Dorsey RN [address] [place] [address] Specialty Soil Science Technical Officer Hematology/Oncology 05/03/21 Manager Performance Relationship Specialty Start Date End Date Arsalan Lilly MD [address] [facility] [place] [address] PCP - General Family Practice 12/08/20 Natalya Dorsey, RN [address] [facility] [place] [address] Specialty Soil Science Technical Officer Hematology/Oncology 05/03/21 Manager Performance Relationship Specialty Start Date End Date Arsalan Lilly MD [address] [facility] [place] [address] PCP - General Family Practice 12/08/20 Natalya Dorsey, RN [address] [facility] [place] [address] Specialty Soil Science Technical Officer Hematology/Oncology 05/03/21 Manager Performance Relationship Specialty Start Date End Date Arsalan Lilly MD [address] [place] [address] PCP - General Family Practice 12/08/20 Natalya Dorsey, RN [address] [facility] [place] [address] Specialty Soil Science Technical Officer Hematology/Oncology 05/03/21 Manager Performance Relationship Specialty Start Date End Date Arsalan Lilly MD [address] [place] [address] PCP - General Family Medicine 12/08/20 Natalya Dorsey, RN [address] [facility] [place] [address] Specialty Soil Science Technical Officer Hematology/Oncology 05/03/21 Manager Performance Relationship Specialty Start Date End Date Arsalan Lilly MD [address] [facility] [place] [address] PCP - General Family Medicine 12/08/20 Natalya Dorsey RN [address] [place] [address] Specialty Soil Science Technical Officer Hematology/Oncology 05/03/21 Manager Performance Relationship Specialty Start Date End Date Arsalan Lilly MD [address] [facility] [place] [address] PCP - General Family Medicine 12/08/20 Natalya Dorsey RN [address] [place] [address] Specialty Soil Science Technical Officer Hematology/Oncology 05/03/21 Manager Performance Relationship Specialty Start Date End Date Arsalan Lilly MD [address] [facility] [place] [address] PCP - General Family Medicine 12/08/20 Natalya Dorsey RN [address] [facility] [place] [address] Specialty Soil Science Technical Officer Hematology/Oncology 05/03/21 Manager Performance Relationship Specialty Start Date End Date Arsalan Lilly MD [address] [place] [address] PCP - General Family Medicine 12/08/20 Natalya Dorsey RN [address] [place] [address] Specialty Soil Science Technical Officer Hematology/Oncology 05/03/21 Manager Performance Relationship Specialty Start Date End Date Arsalan Lilly MD [address] [place] [address] PCP - General Family Medicine 12/08/20 Natalya Dorsey RN [address] [place] [address] Specialty Soil Science Technical Officer Hematology/Oncology 05/03/21 Manager Performance Relationship Specialty Start Date End Date Arsalan Lilly MD [address] [facility] [place] [address] PCP - General Family Medicine 12/08/20 Natalya Dorsey, RN [address] [facility] [place] [address] Specialty Soil Science Technical Officer Hematology/Oncology 05/03/21 Manager Performance Relationship Specialty Start Date End Date Arsalan Lilly MD [address] [facility] [place] [address] PCP - General Family Medicine 12/08/20 Natalya Dorsey, RN [address] [facility] [place] [address] Specialty Soil Science Technical Officer Hematology/Oncology 05/03/21 Manager Performance Relationship Specialty Start Date End Date Arsalan Lilly MD [address] [facility] [place] [address] PCP - General Family Medicine 12/08/20 Natalya Dorsey, RN [address] [facility] [place] [address] Specialty Soil Science Technical Officer Hematology/Oncology 05/03/21 Manager Performance Relationship Specialty Start Date End Date Arsalan Lilly MD [address] [place] [address] PCP - General Family Medicine 12/08/20 Natalya Dorsey, RN [address] [place] [address] Specialty Soil Science Technical Officer Hematology/Oncology 05/03/21 Manager Performance Relationship Specialty Start Date End Date Arsalan Lilly MD [address] [facility] [place] [address] PCP - General Family Medicine 12/08/20 Natalya Dorsey RN [address] [place] [address] Specialty Soil Science Technical Officer Hematology/Oncology 05/03/21 Manager Performance Relationship Specialty Start Date End Date Arsalan Lilly MD [address] [facility] [place] [address] PCP - General Family Medicine 12/08/20 Natalya Dorsey RN [address] [place] [address] Specialty Soil Science Technical Officer Hematology/Oncology 05/03/21 Manager Performance Relationship Specialty Start Date End Date Arsalan Lilly MD [address] [facility] [place] [address] PCP - General Family Medicine 12/08/20 Natalya Dorsey RN [address] [facility] [place] [address] Specialty Soil Science Technical Officer Hematology/Oncology 05/03/21 Manager Performance Relationship Specialty Start Date End Date Arsalan Lilly MD [address] [facility] [place] [address] PCP - General Family Medicine 12/08/20 Natalya Dorsey RN [address] [facility] [place] [address] Specialty Soil Science Technical Officer Hematology/Oncology 05/03/21 Manager Performance Relationship Specialty Start Date End Date Arsalan Lilly MD [address] [place] [address] PCP - General Family Medicine 12/08/20 Natalya Dorsey RN [address] [place] [address] Specialty Soil Science Technical Officer Hematology/Oncology 05/03/21 Manager Performance Relationship Specialty Start Date End Date Arsalan Lilly MD [address] [place] [address] PCP - General Family Medicine 12/08/20 Natalya Dorsey RN [address] [place] [place] [address] Specialty Soil Science Technical Officer Hematology/Oncology 05/03/21 Manager Performance Relationship Specialty Start Date End Date Arsalan Lilly MD [address] [place] [address] PCP - General Family Medicine 12/08/20 Natalya Dorsey RN [address] [facility] [place] [address] Specialty Soil Science Technical Officer Hematology/Oncology 05/03/21 Manager Performance Relationship Specialty Start Date End Date Arsalan Lilly MD [address] [place] [address] PCP - General Family Medicine 12/08/20 Natalya Dorsey RN [address] [place] [place] [address] Specialty Soil Science Technical Officer Hematology/Oncology 05/03/21 Manager Performance Relationship Specialty Start Date End Date Arsalan Lilly MD [address] [place] [address] PCP - General Family Medicine 12/08/20 Natalya Dorsey RN [address] [place] [address] Specialty Soil Science Technical Officer Hematology/Oncology 05/03/21 Manager Performance Relationship Specialty Start Date End Date Arsalan Lilly MD [address] [facility] [place] [address] PCP - General Family Medicine 12/08/20 Natalya Dorsey, ERIN [address] [place] [address] Specialty Soil Science Technical Officer Hematology/Oncology 05/03/21 Manager Performance Relationship Specialty Start Date End Date Arsalan Lilly MD [address] [facility] [place] [address] PCP - General Family Medicine 12/08/20 Natalya Dorsey, RN [address] [facility] [place] [address] Specialty Soil Science Technical Officer Hematology/Oncology 05/03/21 Manager Performance Relationship Specialty Start Date End Date Arsalan Lilly MD [address] [facility] [place] [address] PCP - General Family Medicine 12/08/20 Natalya Dorsey, ERIN [address] [place] [address] Specialty Soil Science Technical Officer Hematology/Oncology 05/03/21 Manager Performance Relationship Specialty Start Date End Date Arsalan Lilly MD [address] [place] [address] PCP - General Family Medicine 12/08/20 Natalya Dorsey, ERIN [address] [facility] [address] Specialty Soil Science Technical Officer Hematology/Oncology 05/03/21 Manager Performance Relationship Specialty Start Date End Date Arsalan Lilly MD [address] [place] [address] PCP - General Family Medicine 12/08/20 Natalya Dorsey, ERIN [address] [place] [address] Specialty Soil Science Technical Officer Hematology/Oncology 05/03/21 Manager Performance Relationship Specialty Start Date End Date Arsalan Lilly MD [address] [facility] [place] [address] PCP - General Family Medicine 12/08/20 Natalya Dorsey RN [address] [place] [address] Specialty Soil Science Technical Officer Hematology/Oncology 05/03/21 Manager Performance Relationship Specialty Start Date End Date Arsalan Lilly MD [address] [place] [address] PCP - General Family Medicine 12/08/20 Natalya Dorsey RN [address] [place] [address] Specialty Soil Science Technical Officer Hematology/Oncology 05/03/21 Manager Performance Relationship Specialty Start Date End Date Arsalan Lilly MD [address] [facility] [place] [address] PCP - General Family Medicine 12/08/20 Natalya Dorsey RN [address] [place] [address] Specialty Soil Science Technical Officer Hematology/Oncology 05/03/21 Dereje Villarreal MD [address] [place] [address] Hematology/Oncology 03/13/23 Manager Performance Relationship Specialty Start Date End Date Arsalan Lilly MD [address] [place] [address] PCP - General Family Medicine 12/08/20 Natalya Dorsey, ERIN [address] [place] [address] Specialty Soil Science Technical Officer Hematology/Oncology 05/03/21 Dereje Villarreal MD [address] [place] [address] Hematology/Oncology 03/13/23 Manager Performance Relationship Specialty Start Date End Date Arsalan Lilly MD [address] [place] [address] PCP - General Family Medicine 12/08/20 Natalya Dorsey RN [address] [place] [address] Specialty Soil Science Technical Officer Hematology/Oncology 05/03/21 Dereje Villarreal MD [address] [place] [address] Hematology/Oncology 03/13/23 Manager Performance Relationship Specialty Start Date End Date Arsalan Lilly MD [address] [place] [address] PCP - General Family Medicine 12/08/20 Natalya Dorsey, RN [address] [place] [address] Specialty Soil Science Technical Officer Hematology/Oncology 05/03/21 Dereje Villarreal MD [address] [place] [address] Hematology/Oncology 03/13/23 Manager Performance Relationship Specialty Start Date End Date Arsalan Lilly MD [address] [place] [address] PCP - General Family Medicine 12/08/20 Natalya Dorsey RN [address] [place] [address] Specialty Soil Science Technical Officer Hematology/Oncology 05/03/21 Dereje Villarreal MD [address] [place] [address] Hematology/Oncology 03/13/23 Manager Performance Relationship Specialty Start Date End Date Arsalan Lilly MD [address] [place] [address] PCP - General Family Medicine 12/08/20 Natalya Dorsey RN [address] [place] [address] Specialty Soil Science Technical Officer Hematology/Oncology 05/03/21 Dereje Villarreal MD [address] [place] [address] Hematology/Oncology 03/13/23 Manager Performance Relationship Specialty Start Date End Date Arsalan Lilly MD [address] [place] [address] PCP - General Family Medicine 12/08/20 Natalya Dorsey RN [address] [place] [address] Specialty Soil Science Technical Officer Hematology/Oncology 05/03/21 Dereje Villarreal MD [address] [place] [address] Hematology/Oncology 03/13/23 Manager Performance Relationship Specialty Start Date End Date Arsalan Lilly MD [address] [place] [address] PCP - General Family Medicine 12/08/20 Natalya Dorsey, ERIN [address] [place] [address] Specialty Soil Science Technical Officer Hematology/Oncology 05/03/21 Dereje Villarreal MD [address] [place] [place] [address] Hematology/Oncology 03/13/23 Manager Performance Relationship Specialty Start Date End Date Arsalan Lilly MD [address] [place] [address] PCP - General Family Medicine 12/08/20 Natalya Dorsey, ERIN [address] [place] [address] Specialty Soil Science Technical Officer Hematology/Oncology 05/03/21 Dereje Villarreal MD [address] [place] [address] Hematology/Oncology 03/13/23 Manager Performance Relationship Specialty Start Date End Date Arsalan Lilly MD [address] [place] [address] PCP - General Family Medicine 12/08/20 Natalya Dorsey, ERIN [address] [place] [address] Specialty Soil Science Technical Officer Hematology/Oncology 05/03/21 Dereje Villarreal MD [address] [place] [address] Hematology/Oncology 03/13/23 Manager Performance Relationship Specialty Start Date End Date Arsalan Lilly MD [address] [place] [address] PCP - General Family Medicine 12/08/20 Natalya Dorsey RN [address] [place] [address] Specialty Soil Science Technical Officer Hematology/Oncology 05/03/21 Dereje Villarreal MD [address] [place] [address] Hematology/Oncology 03/13/23 Manager Performance Relationship Specialty Start Date End Date Arsalan Lilly MD [address] [place] [address] PCP - General Family Medicine 12/08/20 Natalya Dorsey RN [address] [place] [address] Specialty Soil Science Technical Officer Hematology/Oncology 05/03/21 Dereje Villarreal MD [address] [place] [address] Hematology/Oncology 03/13/23 Manager Performance Relationship Specialty Start Date End Date Arsalan Lilly MD [address] [place] [address] PCP - General Family Medicine 12/08/20 Natalya Dorsey RN [address] [place] [address] Specialty Soil Science Technical Officer Hematology/Oncology 05/03/21 Dereje Villarreal MD [address] [place] [address] Hematology/Oncology 03/13/23 Manager Performance Relationship Specialty Start Date End Date Arsalan Lilly MD [address] [place] [address] PCP - General Family Medicine 12/08/20 Natalya Dorsey RN [address] [place] [address] Specialty Soil Science Technical Officer Hematology/Oncology 05/03/21 Dereje Villarreal MD [address] [place] [address] Hematology/Oncology 03/13/23 Manager Performance Relationship Specialty Start Date End Date Arsalan Lilly MD [address] [place] [address] PCP - General Family Medicine 12/08/20 Natalya Dorsey RN [address] [place] [address] Specialty Soil Science Technical Officer Hematology/Oncology 05/03/21 Dereje Villarreal MD [address] [place] [address] Hematology/Oncology 03/13/23 Manager Performance Relationship Specialty Start Date End Date Arsalan Lilly MD [address] [place] [address] PCP - General Family Medicine 12/08/20 Natalya Dorsey, ERIN [address] [place] [address] Specialty Soil Science Technical Officer Hematology/Oncology 05/03/21 Dereje Vilalrreal MD [address] [place] [address] Hematology/Oncology 03/13/23 Manager Performance Relationship Specialty Start Date End Date Arsalan Lilly MD [address] [place] [address] PCP - General Family Medicine 12/08/20 Natalya Dorsey RN [address] [place] [address] Specialty Soil Science Technical Officer Hematology/Oncology 05/03/21 Dereje Villarreal MD [address] [place] [address] Hematology/Oncology 03/13/23 Manager Performance Relationship Specialty Start Date End Date Arsalan Lilly MD [address] [place] [address] PCP - General Family Medicine 12/08/20 Natalya Dorsey RN [address] [place] [address] Specialty Soil Science Technical Officer Hematology/Oncology 05/03/21 Dereje Villarreal MD [address] [place] [address] Hematology/Oncology 03/13/23 Manager Performance Relationship Specialty Start Date End Date Arsalan Lilly MD [address] [place] [address] PCP - General Family Medicine 12/08/20 Natalya Dorsey, ERIN [address] [place] [address] Specialty Soil Science Technical Officer Hematology/Oncology 05/03/21 Dereje Villarreal MD [address] [place] [address] Hematology/Oncology 03/13/23 Manager Performance Relationship Specialty Start Date End Date Arsalan Lilly MD [address] [place] [address] PCP - General Family Medicine 12/08/20 Natalya Dorsey RN [address] [place] [address] Specialty Soil Science Technical Officer Hematology/Oncology 05/03/21 Dereje Villarreal MD [address] [place] [address] Hematology/Oncology 03/13/23 Manager Performance Relationship Specialty Start Date End Date Arsalan Lilly MD [address] [place] [address] PCP - General Family Medicine 12/08/20 Natalya Dorsey, ERIN [address] [place] [address] Specialty Soil Science Technical Officer Hematology/Oncology 05/03/21 Dereje Villarreal MD [address] [place] [address] Hematology/Oncology 03/13/23 Manager Performance Relationship Specialty Start Date End Date Arsalan Lilly MD [address] [place] [address] PCP - General Family Medicine 12/08/20 Natalya Dorsey RN [address] [place] [address] Specialty Soil Science Technical Officer Hematology/Oncology 05/03/21 Dereje Villarreal MD [address] [place] [address] Hematology/Oncology 03/13/23 Manager Performance Relationship Specialty Start Date End Date Arsalan Lilly MD [address] [place] [address] PCP - General Family Medicine 12/08/20 Natalya Dorsey RN [address] [place] [address] Specialty Soil Science Technical Officer Hematology/Oncology 05/03/21 Dereje Villarreal MD [address] [place] [address] Hematology/Oncology 03/13/23 Manager Performance Relationship Specialty Start Date End Date Arsalan Lilly MD [address] [place] [address] PCP - General Family Medicine 12/08/20 Natalya Dorsey, ERIN [address] [place] [address] Specialty Soil Science Technical Officer Hematology/Oncology 05/03/21 Dereje Villarreal MD [address] [place] [address] Hematology/Oncology 03/13/23 Manager Performance Relationship Specialty Start Date End Date Arsalan Lilly MD [address] [place] [address] PCP - General Family Medicine 12/08/20 Natalya Dorsey, ERIN [address] [place] [address] Specialty Soil Science Technical Officer Hematology/Oncology 05/03/21 Dereje Villarreal MD [address] [place] [place] [address] Hematology/Oncology 03/13/23 Manager Performance Relationship Specialty Start Date End Date Arsalan Lilly MD [address] [place] [address] PCP - General Family Medicine 12/08/20 Natalya Dorsey RN [address] [place] [address] Specialty Soil Science Technical Officer Hematology/Oncology 05/03/21 Dereje Villarreal MD [address] [place] [address] Hematology/Oncology 03/13/23 Manager Performance Relationship Specialty Start Date End Date Arsalan Lilly MD [address] [place] [address] PCP - General Family Medicine 12/08/20 Natalya Dorsey RN [address] [place] [address] Specialty Soil Science Technical Officer Hematology/Oncology 05/03/21 Dereje Villarreal MD [address] [place] [address] Hematology/Oncology 03/13/23 Manager Performance Relationship Specialty Start Date End Date Arsalan Lilly MD [address] [facility] [place] [address] PCP - General Family Medicine 12/08/20 Natalya Dorsey RN [address] [place] [address] Specialty Soil Science Technical Officer Hematology/Oncology 05/03/21 Dereje Villarreal MD [address] [place] [address] Hematology/Oncology 03/13/23 Manager Performance Relationship Specialty Start Date End Date Arsalan Lilly MD [address] [facility] [place] [address] PCP - General Family Medicine 12/08/20 Natalya Dorsey RN [address] [place] [address] Specialty Soil Science Technical Officer Hematology/Oncology 05/03/21 Dereje Villarreal MD [address] [place] [address] Hematology/Oncology 03/13/23 Manager Performance Relationship Specialty Start Date End Date Arsalan Lilly MD [address] [facility] [place] [address] PCP - General Family Medicine 12/08/20 Natalya Dorsey, ERIN [address] [place] [address] Specialty Soil Science Technical Officer Hematology/Oncology 05/03/21 Dereje Villarreal MD [address] [place] [address] Hematology/Oncology 03/13/23 Manager Performance Relationship Specialty Start Date End Date Arsalan Lilly MD [address] [place] [address] PCP - General Family Medicine 12/08/20 Natalya Dorsey, ERIN [address] [place] [address] Specialty Soil Science Technical Officer Hematology/Oncology 05/03/21 Dereje Villarreal MD [address] [place] [address] Hematology/Oncology 03/13/23 Manager Performance Relationship Specialty Start Date End Date Arsalan Lilly MD [address] [place] [address] PCP - General Family Medicine 12/08/20 Natalya Dorsey, ERIN [address] [place] [address] Specialty Soil Science Technical Officer Hematology/Oncology 05/03/21 Dereje Villarreal MD [address] [place] [address] Hematology/Oncology 03/13/23 Manager Performance Relationship Specialty Start Date End Date Arsalan Lilly MD [address] [place] [address] PCP - General Family Medicine 12/08/20 Natalya Dorsey RN [address] [place] [address] Specialty Soil Science Technical Officer Hematology/Oncology 05/03/21 Dereje Villarreal MD [address] [place] [address] Hematology/Oncology 03/13/23 Manager Performance Relationship Specialty Start Date End Date Arsalan Lilly MD [address] [place] [address] PCP - General Family Medicine 12/08/20 Natalya Dorsey RN [address] [place] [address] Specialty Soil Science Technical Officer Hematology/Oncology 05/03/21 Dereje Villarreal MD [address] [place] [address] Hematology/Oncology 03/13/23 Manager Performance Relationship Specialty Start Date End Date Arsalan Lilly MD [address] [place] [address] PCP - General Family Medicine 12/08/20 Natalya Dorsey RN [address] [place] [address] Specialty Soil Science Technical Officer Hematology/Oncology 05/03/21 Dereje Villarreal MD [address] [place] [address] Hematology/Oncology 03/13/23 Manager Performance Relationship Specialty Start Date End Date Arsalan Lilly MD [address] [place] [address] PCP - General Family Medicine 12/08/20 Natalya Dorsey, RN [address] [place] [address] Specialty Soil Science Technical Officer Hematology/Oncology 05/03/21 Dereje Villarreal MD [address] [place] [address] Hematology/Oncology 03/13/23 Manager Performance Relationship Specialty Start Date End Date Arsalan Lilly MD [address] [place] [address] PCP - General Family Medicine 12/08/20 Natalya Dorsey, ERIN [address] [place] [address] Specialty Soil Science Technical Officer Hematology/Oncology 05/03/21 Dereje Villarreal MD [address] [place] [address] Hematology/Oncology 03/13/23 Manager Performance Relationship Specialty Start Date End Date Arsalan Lilly MD [address] [place] [address] PCP - General Family Medicine 12/08/20 Natalya Dorsey, ERIN [address] [place] [address] Specialty Soil Science Technical Officer Hematology/Oncology 05/03/21 Dereje Villarreal MD [address] [place] [address] Hematology/Oncology 03/13/23 Podlogar, DORIS Alexander.REPRINT SORTER [address] [place] [address] [facility] 03/13/24 Manager Performance Relationship Specialty Start Date End Date Arsalan Lilly MD [address] [place] [address] PCP - General Family Medicine 12/08/20 Natalya Dorsey, ERIN [address] [place] [address] Specialty Soil Science Technical Officer Hematology/Oncology 05/03/21 Dereje Villarreal MD [address] [place] [address] Hematology/Oncology 03/13/23 PodlogarCatherine APRN.REPRINT SORTER [address] [place] [address] [facility] 03/13/24 Manager Performance Relationship Specialty Start Date End Date Arsalan Lilly MD [address] [place] [address] PCP - General Family Medicine 12/08/20 Natalya Dorsey, RN [address] [place] [address] Specialty Soil Science Technical Officer Hematology/Oncology 05/03/21 Dereje Villarreal MD [address] [place] [address] Hematology/Oncology 03/13/23 PodlogarCatherine APRN.REPRINT SORTER [address] [place] [address] [employer] [facility] 03/13/24 Manager Performance Relationship Specialty Start Date End Date Arsalan Lilly MD [address] [place] [address] PCP - General Family Medicine 12/08/20 Natalya Dorsey, ERIN [address] [place] [address] Specialty Soil Science Technical Officer Hematology/Oncology 05/03/21 Dereje Villarreal MD [address] [place] [address] Hematology/Oncology 03/13/23 PodlogarCatherine APRN.REPRINT SORTER [address] [place] [address] [employer] [facility] 03/13/24 Manager Performance Relationship Specialty Start Date End Date Arsalan Lilly MD [address] [place] [address] PCP - General Family Medicine 12/08/20 Natalya Dorsey RN [address] [place] [address] Specialty Soil Science Technical Officer Hematology/Oncology 05/03/21 Dereje Villarreal MD [address] [place] [address] Hematology/Oncology 03/13/23 Manager Performance Relationship Specialty Start Date End Date Arsalan Lilly MD [address] [place] [address] PCP - General Family Medicine 12/08/20 Natalya Dorsey, ERIN [address] [place] [address] Specialty Soil Science Technical Officer Hematology/Oncology 05/03/21 Dereje Villarreal MD [address] [place] [address] Hematology/Oncology 03/13/23 Podlogar, Catherine, UI ARCHITECT.REPRINT SORTER [address] [place] [address] [employer] [facility] 03/13/24 Manager Performance Relationship Specialty Start Date End Date Arsalan Lilly MD [address] [place] [address] PCP - General Family Medicine 12/08/20 Natalya Dorsey RN [address] [place] [address] Specialty Soil Science Technical Officer Hematology/Oncology 05/03/21 Dereje Villarreal MD [address] [place] [address] Hematology/Oncology 03/13/23 Podlogar, Catherine, UI ARCHITECT.REPRINT SORTER [address] [place] [address] [employer] [facility] 03/13/24 Manager Performance Relationship Specialty Start Date End Date Arsalan Lilly MD [address] [place] [address] PCP - General Family Medicine 12/08/20 Natalya Dorsey, ERIN [address] [place] [address] Specialty Soil Science Technical Officer Hematology/Oncology 05/03/21 Dereje Villarreal MD [address] [place] [address] Hematology/Oncology 03/13/23 PodlogarCatherine APRN.REPRINT SORTER [address] [place] [address] [employer] [facility] 03/13/24 Manager Performance Relationship Specialty Start Date End Date Arsalan Lilly MD [address] [place] [address] PCP - General Family Medicine 12/08/20 Natalya Dorsey RN [address] [place] [address] Specialty Soil Science Technical Officer Hematology/Oncology 05/03/21 Dereje Villarreal MD [address] [place] [address] Hematology/Oncology 03/13/23 PodlogarCatherine APRN.REPRINT SORTER [address] [place] [address] [employer] [facility] 03/13/24 Manager Performance Relationship Specialty Start Date End Date Arsalan Lilly MD [address] [place] [address] PCP - General Family Medicine 12/08/20 Natalya Dorsey RN [address] [place] [address] Specialty Soil Science Technical Officer Hematology/Oncology 05/03/21 Dereje Villarreal MD [address] [place] [address] Hematology/Oncology 03/13/23 PodlogarCatherine, UI ARCHITECT.REPRINT SORTER [address] [place] [address] [employer] [facility] 03/13/24 Manager Performance Relationship Specialty Start Date End Date Arsalan Lilly MD [address] [place] [address] PCP - General Family Medicine 12/08/20 Natalya Dorsey, ERIN [address] [place] [address] Specialty Soil Science Technical Officer Hematology/Oncology 05/03/21 Dereje Villarreal MD [address] [place] [address] Hematology/Oncology 03/13/23 PodlogarCatherine, UI ARCHITECT.REPRINT SORTER [address] [place] [address] [employer] [facility] 03/13/24 Manager Performance Relationship Specialty Start Date End Date Arsalan Lilly MD [address] [place] [address] PCP - General Family Medicine 12/08/20 Natalya Dorsey, RN [address] [place] [address] Specialty Soil Science Technical Officer Hematology/Oncology 05/03/21 Dereje Villarreal MD [address] [place] [address] Hematology/Oncology 03/13/23 PodlogarCatherine APRN.REPRINT SORTER [address] [place] [address] [employer] [facility] 03/13/24 Manager Performance Relationship Specialty Start Date End Date Arsalan Lilly MD [address] [place] [address] PCP - General Family Medicine 12/08/20 Natalya Dorsey, ERIN [address] [place] [address] Specialty Soil Science Technical Officer Hematology/Oncology 05/03/21 Dereje Villarreal MD [address] [place] [address] Hematology/Oncology 03/13/23 PodlogarCatherine APRN.REPRINT SORTER [address] [place] [address] [employer] [facility] 03/13/24 Manager Performance Relationship Specialty Start Date End Date Arsalan Lilly MD [address] [place] [address] PCP - General Family Medicine 12/08/20 Natalya Dorsey RN [address] [place] [address] Specialty Soil Science Technical Officer Hematology/Oncology 05/03/21 Dereje Villarreal MD [address] [place] [address] Hematology/Oncology 03/13/23 Podlogar, DORIS Alexander.REPRINT SORTER [address] [place] [address] [facility] 03/13/24 Manager Performance Relationship Specialty Start Date End Date Arsalan Lilly MD [address] [place] [address] PCP - General Family Medicine 12/08/20 Natalya Dorsey, ERIN [address] [place] [address] Specialty Soil Science Technical Officer Hematology/Oncology 05/03/21 Dereje Villarreal MD [address] [place] [address] Hematology/Oncology 03/13/23 Podlogar, DORIS Alexander.REPRINT SORTER [address] [place] [address] [facility] 03/13/24 Manager Performance Relationship Specialty Start Date End Date Arsalan Lilly MD [address] [place] [address] PCP - General Family Medicine 12/08/20 Natalya Dorsey, ERIN [address] [place] [address] Specialty Soil Science Technical Officer Hematology/Oncology 05/03/21 Dereje Villarreal MD [address] [place] [address] Hematology/Oncology 03/13/23 Podlogar, DORIS Alexander.REPRINT SORTER [address] [place] [address] [employer] [facility] 03/13/24 Suresh Hodges MD [address] [place] [address] Radiation Oncology 06/18/24 Yasmine Marrero APRN.REPRINT SORTER [address] [facility] [place] [address] [facility] 06/18/24 Manager Performance Relationship Specialty Start Date End Date Arsalan Lilly MD [address] [place] [address] PCP - General Family Medicine 12/08/20 Natalya Dorsey, ERIN [address] [place] [address] Specialty Soil Science Technical Officer Hematology/Oncology 05/03/21 Dereje Villarreal MD [address] [place] [address] Hematology/Oncology 03/13/23 PodlogCatherine verduzco APRN.REPRINT SORTER [address] [place] [address] [facility] Family Medicine 03/13/24 Suresh Hodges MD [address] [place] [address] Radiation Oncology 06/18/24 Yasmine Marrero APRN.REPRINT SORTER [address] [facility] [place] [address] [facility] 06/28/24 Manager Performance Relationship Specialty Start Date End Date Arsalan Lilly MD [address] [facility] [place] [address] PCP - General Family Medicine 12/08/20 Natalya Dorsey, RN [address] [place] [address] Specialty Soil Science Technical Officer Hematology/Oncology 05/03/21 Dereje Villarreal MD [address] [place] [address] Hematology/Oncology 03/13/23 Catherine Peraza APRN.REPRINT SORTER [address] [facility] [place] [address] [employer] Family [facility] 03/13/24 Suresh Hodges MD [address] [place] [address] Radiation Oncology 06/18/24 Yasmine Marrero APRN.REPRINT SORTER [address] [facility] [place], [place] [address] [facility] 06/28/24 Manager Performance Relationship Specialty Start Date End Date Arsalan Lilly MD [address] [place] [address] PCP - General Family Medicine 12/08/20 Natalya Dorsey, ERIN [address] [place] [address] Specialty Soil Science Technical Officer Hematology/Oncology 05/03/21 Dereje Villarreal MD [address] [place] [address] Hematology/Oncology 03/13/23 PodlogarCatherine APRN.REPRINT SORTER [address] [facility] [place] [address] [facility] 03/13/24 Suresh Hodges MD [address] [place] [address] Radiation Oncology 06/18/24 Yasmine Marrero APRN.REPRINT SORTER [address] [facility] [place] [address] [facility] 06/28/24 Manager Performance Relationship Specialty Start Date End Date Arsalan Lilly MD [address] [place] [address] PCP - General Family Medicine 12/08/20 Natalya Dorsey, RN [address] [place] [address] Specialty Soil Science Technical Officer Hematology/Oncology 05/03/21 Dereje Villarreal MD [address] [place] [address] Hematology/Oncology 03/13/23 PodlogarCatherine APRN.REPRINT SORTER [address] [place] [address] [facility] 03/13/24 Suresh Hodges MD [address] [place] [address] Radiation Oncology 06/18/24 Yasmine Marrero APRN.REPRINT SORTER [address] [facility] [place] [place] [address] [facility] [employer] [facility] 06/28/24 Manager Performance Relationship Specialty Start Date End Date Arsalan Lilly MD [address] [place] [address] PCP - General Family Medicine 12/08/20 Natalya Dorsey, ERIN [address] [place] [address] Specialty Soil Science Technical Officer Hematology/Oncology 05/03/21 Dereje Villarreal MD [address] [place] [address] Hematology/Oncology 03/13/23 PodlogCatherine verduzco APRN.REPRINT SORTER [address] [place] [address] [facility] 03/13/24 Suresh Hodges MD [address] [place] [address] Radiation Oncology 06/18/24 Yasmine Marrero APRN.REPRINT SORTER [address] [place] [address] [facility] [employer] 06/28/24 Manager Performance Relationship Specialty Start Date End Date Arsalan Lilly MD [address] [place] [address] PCP - General Family Medicine 12/08/20 Natalya Dorsey RN [address] [place] [address] Specialty Soil Science Technical Officer Hematology/Oncology 05/03/21 Dereje Villarreal MD [address] [place] [address] Hematology/Oncology 03/13/23 PodlogarCatherine APRN.REPRINT SORTER [address] [place] [address] [facility] 03/13/24 Suresh Hodges MD [address] [place] [address] Radiation Oncology 06/18/24 Yasmine Marrero APRN.REPRINT SORTER [address] [place] [address] [facility] 06/28/24 Manager Performance Relationship Specialty Start Date End Date Arsalan Lilly MD [address] [place] [address] PCP - General Family Medicine 12/08/20 Natalya Dorsey, RN [address] [place] [address] Specialty Soil Science Technical Officer Hematology/Oncology 05/03/21 Dereje Villarreal MD [address] [place] [address] Hematology/Oncology 03/13/23 PodlogarCatherine APRN.REPRINT SORTER [address] [place] [address] [facility] Family Medicine 03/13/24 Suresh Hodges MD [address] [place] [address] Radiation Oncology 06/18/24 Manager Performance Relationship Specialty Start Date End Date Arsalan Lilly MD [address] [place] [address] PCP - General Family Medicine 12/08/20 Natalya Dorsey RN [address] [place] [address] Specialty Soil Science Technical Officer Hematology/Oncology 05/03/21 Dereje Villarreal MD [address] [place], [place] [address] Hematology/Oncology 03/13/23 PodlogCatherine verduzco APRN.REPRINT SORTER [address] [place] [address] [facility] 03/13/24 Suresh Hodges MD [address] [place] [address] Radiation Oncology 06/18/24 Team Status: Active Member Role Status Dates Dr. López Lilly MD Primary Care Provider Acti ve Start: September 18, 2024 Dr. Augustin Carney MD Emergency Provider Active S tart: September 18, 2024 Dr. Ivan Nugent MD Admit Provider Active Start: September 18, 2024 Dr. Ivan Nugent MD Attending Provider Active Start: September 18, 2024 Manager Performance Relationship Specialty Start Date End Date Arsalan Lilly MD [address] [place], [place] [id number] PCP - General Family Medicine 12/08/20 Natalya Dorsey RN [address] [place] [address] Specialty Soil Science Technical Officer Hematology/Oncology 05/03/21 Dereje Villarreal MD [address] [place] [address] Hematology/Oncology 03/13/23 PodlogarCatherine APRN.REPRINT SORTER [address] [place] [address] [facility] 03/13/24 Suresh Hodges MD [address] [place] [address] Radiation Oncology 06/18/24 Manager Performance Relationship Specialty Start Date End Date Arsalan Lilly MD [address] [place] [address] PCP - General Family Medicine 12/08/20 Natalya Dorsey, ERIN [address] [place] [address] Specialty Soil Science Technical Officer Hematology/Oncology 05/03/21 Dereje Villarreal MD [address] [place] [address] Hematology/Oncology 03/13/23 PodlogarCatherine APRN.REPRINT SORTER [address] [place] [address] [facility] 03/13/24 Suresh Hodges MD [address] [place] [address] Radiation Oncology 06/18/24 Yasmine Marrero APRN.REPRINT SORTER [address] [facility] [place] [address] [facility] 09/16/24 Manager Performance Relationship Specialty Start Date End Date Arsalan Lilly MD [address] [facility] [place] [address] PCP - General Family Medicine 12/08/20 Natalya Dorsey, ERIN [address] [place] [address] Specialty Soil Science Technical Officer Hematology/Oncology 05/03/21 Dereje Villarreal MD [address] [place] [address] Hematology/Oncology 03/13/23 PodlogarCatherine APRN.REPRINT SORTER [address] [place] [address] [facility] 03/13/24 Suresh Hodges MD [address] [place] [address] Radiation Oncology 06/18/24 Yasmine Marrero, UI ARCHITECT.REPRINT SORTER [address] [facility] [place] [address] [facility] 09/16/24 Manager Performance Relationship Specialty Start Date End Date Arsalan Lilly MD [address] [place] [address] PCP - General Family Medicine 12/08/20 Natalya Dorsey RN [address] [place] [address] Specialty Soil Science Technical Officer Hematology/Oncology 05/03/21 Dereje Villarreal MD [address] [place] [address] Hematology/Oncology 03/13/23 PodlogarCatherine APRN.REPRINT SORTER [address] [place] [address] [facility] 03/13/24 Suresh Hodges MD [address] [place] [address] Radiation Oncology 06/18/24 Manager Performance Relationship Specialty Start Date End Date Arsalan Lilly MD [address] [facility] [place] [address] PCP - General Family Medicine 12/08/20 Natalya Dorsey, RN [address] [place] [address] Specialty Soil Science Technical Officer Hematology/Oncology 05/03/21 Dereje Villarreal MD [address] [place] [address] Hematology/Oncology 03/13/23 PodlogarCatherine APRN.REPRINT SORTER [address] [place] [address] [facility] 03/13/24 Suresh Hodges MD [address] [place] [address] Radiation Oncology 06/18/24 Yasmine Marrero APRN.REPRINT SORTER [address] [facility] [place] [address] [facility] 09/16/24 Manager Performance Relationship Specialty Start Date End Date Arsalan Lilly MD [address] [facility] [place] [address] PCP - General Family Medicine 12/08/20 Natalya Dorsey, ERIN [address] [place] [address] Specialty Soil Science Technical Officer Hematology/Oncology 05/03/21 Dereje Villarreal MD [address] [place] [address] Hematology/Oncology 03/13/23 PodlogarCatherine APRN.REPRINT SORTER [address] [place] [address] [facility] 03/13/24 Suresh Hodges MD [address] [place] [address] Radiation Oncology 06/18/24 Yasmine Marrero APRN.REPRINT SORTER [address] [facility] [place] [address] [facility] [employer] 09/16/24 Manager Performance Relationship Specialty Start Date End Date Arsalan Lilly MD [address] [place] [address] PCP - General Family Medicine 12/08/20 Natalya Dorsey, ERIN [address] [place] [address] Specialty Soil Science Technical Officer Hematology/Oncology 05/03/21 Dereje Villarreal MD [address] [place] [address] Hematology/Oncology 03/13/23 PodlogarCatherine APRN.REPRINT SORTER [address] [place] [address] [facility] 03/13/24 Suresh Hodges MD [address] [place] [address] Radiation Oncology 06/18/24 Yasmine Marrero APRN.REPRINT SORTER [address] [place] [address] [facility] 09/16/24 Manager Performance Relationship Specialty Start Date End Date Arsalan Lilly MD [address] [place] [address] PCP - General Family Medicine 12/08/20 Natalya Dorsey, RN [address] [place] [address] Specialty Soil Science Technical Officer Hematology/Oncology 05/03/21 Dereje Villarreal MD [address] [place] [address] Hematology/Oncology 03/13/23 PodlogarCatherine APRN.REPRINT SORTER [address] [place] [address] [facility] Medicine 03/13/24 Suresh Hodges MD [address] [place] [address] Radiation Oncology 06/18/24 Yasmine Marrero UI ARCHITECT.REPRINT SORTER [address] [facility] [place] [place] [address] [facility] [employer] 09/16/24 Manager Performance Relationship Specialty Start Date End Date Arsalan Lilly MD [address] [place] [address] PCP - General Family Medicine 12/08/20 Natalya Dorsey, ERIN [address] [place] [address] Specialty Soil Science Technical Officer Hematology/Oncology 05/03/21 Dereje Villarreal MD [address] [facility] [place] [address] Hematology/Oncology 03/13/23 PodlogarCatherine UI ARCHITECT.REPRINT SORTER [address] [place] [address] [facility] 03/13/24 Suresh Hodges MD [address] [place] [address] Radiation Oncology 06/18/24 Yasmine Marrero, UI ARCHITECT.REPRINT SORTER [address] [facility] [place] [place] [address] [facility] 09/16/24 Manager Performance Relationship Specialty Start Date End Date Arsalan Lilly MD [address] [facility] [place] [address] PCP - General Family Medicine 12/08/20 WillianNatalya dahl RN [address] [place] [address] Specialty Soil Science Technical Officer Hematology/Oncology 05/03/21 Dereje Villarreal MD [address] [place] [address] Hematology/Oncology 03/13/23 PodlogarCatherine APRN.REPRINT SORTER [address] [facility] [place] [address] [facility] 03/13/24 Suresh Hodges MD [address] [place] [address] Radiation Oncology 06/18/24 Yasmine Marrero APRN.REPRINT SORTER [address] [facility] [place] [address] [facility] Family Medicine 09/16/24 Manager Performance Relationship Specialty Start Date End Date Arsalan Lilly MD [address] [facility] [place] [address] PCP - General Family Medicine 12/08/20 Natalya Dorsey RN [address] [place] [address] Specialty Soil Science Technical Officer Hematology/Oncology 05/03/21 Dereje Villarreal MD [address] [place] [address] Hematology/Oncology 03/13/23 Podlogar, DORIS Alexander.REPRINT SORTER [address] [facility] [place] [address] [facility] 03/13/24 Suresh Hodges MD [address] [place] [address] Radiation Oncology 06/18/24 Yasmine Marrero APRN.REPRINT SORTER [address] [place] [address] [facility] 09/16/24 Team Status: Active Member Role/Relationship Status Dates Dr. López Lilly MD Primary Care Provider Acti ve Team Status: Inactive Member Role/Relationship Status Dates Dr. López Lilly MD Primary Care Provider Acti ve Start: [...] Active Member Role/Relationship Status Dates Dr. López Lilly MD Primary Care Provider Acti ve Start: [...] Active Member Role/Relationship Status Dates Dr. López Lilly MD Primary Care Provider Acti ve Start: [...] Active Member Role/Relationship Status Dates Dr. López Lilly MD Primary Care Provider Acti ve Start: [...] Active Member Role/Relationship Status Dates Dr. López Lilly MD Primary Care Provider Acti ve Start: [...] Active Member Role/Relationship Status Dates Dr. López Lilly MD Primary Care Provider Acti ve Start: [...] Active Member Role/Relationship Status Dates Dr. López Lilly MD Primary Care Provider Acti ve Start: [...] Active Member Role/Relationship Status Dates Dr. López Lilly MD Primary Care Provider Acti ve Start: [...] Inactive Member Role/Relationship Status Dates Dr. López Lilly MD Primary Care Provider Acti ve Start: October 14, 2024 End: October 14, 2024 Dr. López Lilly MD Referring Provider Active Start: October 14, 2024 End: October 14, 2024 Dr. Lydia Mauricio MD Attending Provider Active Start: October 14, 2024 End: October 14, 2024 Team Status: Active Member Role/Relationship Status Dates Dr. López Lilly MD Primary Care Provider Acti ve Start: October 15, 2024 Dr. Sukhwinder Sierra DO Emergency Provider Active Start: October 15, 2024 Dr. Lety Augustine MD Admit Provider Active St art: October 15, 2024 Dr. Lety Augustine MD Attending Provider Active Start: October 15, 2024 Dr. Rocco Fatima MD Other Provider Active Start: October 15, 2024 Dr. Edmundo Crabtree MD Other Provider Active Start: October 15, 2024 Dr. Daryl Roberts MD Other Provider Active Start: October 15, 2024 Dr. Willem Simeon MD Other Provider Active Star t: October 15, 2024 Dr. Carlos Melvin DO Other Provider Active Start : October 15, 2024 Dr. Tabatha Mo MD Other Provider Active Sta rt: October 15, 2024 Dr. Saud Rodriguez MD Other Provider Active St art: October 15, 2024 Dr. Iker Shi MD Other Provider Active S tart: October 15, 2024 Dr. Angela Bales MD Other Provider Active Start: October 15, 2024 Dr. Jose Boss MD Other Provider Active Start : October 15, 2024 Dr. Charly Brown MD Other Provider Active Start: October 15, 2024 Dr. Sukhwinder Skinner MD Other Provider Active Start : October 15, 2024 Dr. Vita Samano MD Other Provider Active Star t: October 15, 2024 Dr. Corina Rodriguez MD Other Provider Active Sta rt: October 15, 2024 Dr. Serena Varner MD Other Provider Active Sta rt: October 15, 2024 Dr. Cem Maciel MD Other Provider Active Star t: October 15, 2024 Dr. Leonardo Roberts MD Other Provider Active St art: October 15, 2024 Dr. Oli Salinas MD Other Provider Active Star t: October 15, 2024 Dr. Yunior Mane DO Other Provider Active St art: October 15, 2024 Dr. Eugene Ann MD Other Provider Active Start: October 15, 2024 Dr. Olga Diallo MD Other Provider Active St art: October 15, 2024 Dr. Ryan Blount DO Other Provider Active Start: October 15, 2024 Dr. Praneeth Hoyt MD Other Provider Active Star t: October 15, 2024 Dr. Jose David Soliz MD Other Provider Active Sta rt: October 15, 2024 Team Status: Active Member Role/Relationship Status Dates Dr. López Lilly MD Primary Care Provider Acti ve Start: October 14, 2024 Dr. López Lilly MD Referring Provider Active Start: October 14, 2024 Dr. Lydia Mauricio MD Attending Provider Active Start: October 14, 2024 Dr. Lydia Mauricio MD Other Provider Active Start: October 14, 2024 Team Status: Inactive Member Role/Relationship Status Dates Dr. López Lilly MD Primary Care Provider Acti ve Start: October 15, 2024 End: October 19, 2024 Dr. Sukhwinder Sierra DO Emergency Provider Active Start: October 15, 2024 End: October 19, 2024 Dr. Lety Augustine MD Admit Provider Active St art: October 15, 2024 End: October 19, 2024 Dr. Lety Augustine MD Other Provider Active St art: October 15, 2024 End: October 19, 2024 Dr. Rocco Fatima MD Other Provider Active Start: October 15, 2024 End: October 19, 2024 Dr. Edmundo Crabtree MD Other Provider Active Start: October 15, 2024 End: October 19, 2024 Dr. Daryl Roberts MD Other Provider Active Start: October 15, 2024 End: October 19, 2024 Dr. Willem Simeon MD Other Provider Active Star t: October 15, 2024 End: October 19, 2024 Dr. Carlos Melvin DO Other Provider Active Start : October 15, 2024 End: October 19, 2024 Dr. Tabatha Mo MD Other Provider Active Sta rt: October 15, 2024 End: October 19, 2024 Dr. Saud Rodriguez MD Other Provider Active St art: October 15, 2024 End: October 19, 2024 Dr. Iker Shi MD Other Provider Active S tart: October 15, 2024 End: October 19, 2024 Dr. Angela Bales MD Other Provider Active Start: October 15, 2024 End: October 19, 2024 Dr. Jose Boss MD Other Provider Active Start : October 15, 2024 End: October 19, 2024 Dr. Charly Brown MD Other Provider Active Start: October 15, 2024 End: October 19, 2024 Dr. Sukhwinder Skinner MD Other Provider Active Start : October 15, 2024 End: October 19, 2024 Dr. Vita Samano MD Other Provider Active Star t: October 15, 2024 End: October 19, 2024 Dr. Corina Rodriguez MD Other Provider Active Sta rt: October 15, 2024 End: October 19, 2024 Dr. Serena Varner MD Other Provider Active Sta rt: October 15, 2024 End: October 19, 2024 Dr. Cem Maciel MD Other Provider Active Star t: October 15, 2024 End: October 19, 2024 Dr. Leonardo Roberts MD Other Provider Active St art: October 15, 2024 End: October 19, 2024 Dr. Oli Salinas MD Other Provider Active Star t: October 15, 2024 End: October 19, 2024 Dr. Yunior Mane DO Other Provider Active St art: October 15, 2024 End: October 19, 2024 Dr. Eugene Ann MD Other Provider Active Start: October 15, 2024 End: October 19, 2024 Dr. Olga Diallo MD Other Provider Active St art: October 15, 2024 End: October 19, 2024 Dr. Ryan Blount DO Other Provider Active Start: October 15, 2024 End: October 19, 2024 Dr. Praneeth Hoyt MD Other Provider Active Star t: October 15, 2024 End: October 19, 2024 Dr. Jose David Soliz MD Other Provider Active Sta rt: October 15, 2024 End: October 19, 2024 Dr. Tabatha Ashley MD Attending Provider Active Start: October 15, 2024 End: October 19, 2024 Team Status: Active Member Role/Relationship Status Dates Dr. López Lilly MD Primary Care Provider Acti ve Start: October 15, 2024 Dr. Sukhwinder Sierra DO Emergency Provider Active Start: October 15, 2024 Dr. Lety Augustine MD Admit Provider Active St art: October 15, 2024 Dr. Lety Augustine MD Other Provider Active St art: October 15, 2024 Dr. Rocco Fatima MD Other Provider Active Start: October 15, 2024 Dr. Edmundo Crabtree MD Other Provider Active Start: October 15, 2024 Dr. Daryl Roberts MD Other Provider Active Start: October 15, 2024 Dr. Willem Simeon MD Other Provider Active Star t: October 15, 2024 Dr. Carlos Melvin DO Attending Provider Active S tart: October 15, 2024 Dr. Carlos Melvin , Other Provider Active Start : October 15, 2024 Dr. Tabatha Mo MD Other Provider Active Sta rt: October 15, 2024 Dr. Saud Rodriguez MD Other Provider Active St art: October 15, 2024 Dr. Iker Shi MD Other Provider Active S tart: October 15, 2024 Dr. Angela Bales MD Other Provider Active Start: October 15, 2024 Dr. Jose Boss MD Other Provider Active Start : October 15, 2024 Dr. Charly Brown MD Other Provider Active Start: October 15, 2024 Dr. Sukhwinder Skinner MD Other Provider Active Start : October 15, 2024 Dr. Vita Samano MD Other Provider Active Star t: October 15, 2024 Dr. Corina Rodriguez MD Other Provider Active Sta rt: October 15, 2024 Dr. Serena Varner MD Other Provider Active Sta rt: October 15, 2024 Dr. Cem Maciel MD Other Provider Active Star t: October 15, 2024 Dr. Leonardo Roberts MD Other Provider Active St art: October 15, 2024 Dr. Oli Salinas MD Other Provider Active Star t: October 15, 2024 Dr. Yunior Mane DO Other Provider Active St art: October 15, 2024 Dr. Eugene Ann MD Other Provider Active Start: October 15, 2024 Dr. Olga Diallo MD Other Provider Active St art: October 15, 2024 Dr. Ryan Blount DO Other Provider Active Start: October 15, 2024 Dr. Praneeth Hoyt MD Other Provider Active Star t: October 15, 2024 Dr. Jose David Soliz MD Other Provider Active Sta rt: October 15, 2024 Team Status: Active Member Role/Relationship Status Dates Dr. López Lilly MD Primary Care Provider Acti ve Start: October 16, 2024 Dr. Sukhwinder Sierra DO Emergency Provider Active Start: October 16, 2024 Dr. Lety Augustine MD Admit Provider Active St art: October 16, 2024 Dr. Lety Augustine MD Attending Provider Active Start: October 16, 2024 Dr. Lety Augustine MD Other Provider Active St art: October 16, 2024 Dr. Rocco Fatima MD Other Provider Active Start: October 16, 2024 Dr. Edmundo Crabtree MD Other Provider Active Start: October 16, 2024 Dr. Daryl Roberts MD Other Provider Active Start: October 16, 2024 Dr. Willem Simeon MD Other Provider Active Star t: October 16, 2024 Dr. Carlos Melvin DO Other Provider Active Start : October 16, 2024 Dr. Tabatha Mo MD Other Provider Active Sta rt: October 16, 2024 Dr. Saud Rodriguez MD Other Provider Active St art: October 16, 2024 Dr. Iker Shi MD Other Provider Active S tart: October 16, 2024 Dr. Angela Bales MD Other Provider Active Start: October 16, 2024 Dr. Jose Boss MD Other Provider Active Start : October 16, 2024 Dr. Charly Brown MD Other Provider Active Start: October 16, 2024 Dr. Sukhwinder Skinner MD Other Provider Active Start : October 16, 2024 Dr. Vita Samano MD Other Provider Active Star t: October 16, 2024 Dr. Corina Rodriguez MD Other Provider Active Sta rt: October 16, 2024 Dr. Serena Varner MD Other Provider Active Sta rt: October 16, 2024 Dr. Cem Maciel MD Other Provider Active Star t: October 16, 2024 Dr. Leonardo Roberts MD Other Provider Active St art: October 16, 2024 Dr. Oli Salinas MD Other Provider Active Star t: October 16, 2024 Dr. Yunior Mane DO Other Provider Active St art: October 16, 2024 Dr. Eugene Ann MD Other Provider Active Start: October 16, 2024 Dr. Olga Diallo MD Other Provider Active St art: October 16, 2024 Dr. Ryan Blount DO Other Provider Active Start: October 16, 2024 Dr. Praneeth Hoyt MD Other Provider Active Star t: October 16, 2024 Dr. Jose David Soliz MD Other Provider Active Sta rt: October 16, 2024 Team Status: Active Member Role/Relationship Status Dates Dr. López Lilly MD Primary Care Provider Acti ve Start: October 17, 2024 Dr. Sukhwinder Sierra , Emergency Provider Active Start: October 17, 2024 Dr. Lety Augustine MD Admit Provider Active St art: October 17, 2024 Dr. Lety Augustine MD Attending Provider Active Start: October 17, 2024 Dr. Lety Augustine MD Other Provider Active St art: October 17, 2024 Dr. Rocco Fatima MD Other Provider Active Start: October 17, 2024 Dr. Edmundo Crabtree MD Other Provider Active Start: October 17, 2024 Dr. Daryl Roberts MD Other Provider Active Start: October 17, 2024 Dr. Willem Simeon MD Other Provider Active Star t: October 17, 2024 Dr. Carlos Melvin DO Other Provider Active Start : October 17, 2024 Dr. Tabatha Mo MD Other Provider Active Sta rt: October 17, 2024 Dr. Saud Rodriguez MD Other Provider Active St art: October 17, 2024 Dr. Iker Shi MD Other Provider Active S tart: October 17, 2024 Dr. Angela Bales MD Other Provider Active Start: October 17, 2024 Dr. Jose Boss MD Other Provider Active Start : October 17, 2024 Dr. Charly Brown MD Other Provider Active Start: October 17, 2024 Dr. Sukhwinder Skinner MD Other Provider Active Start : October 17, 2024 Dr. Vita Samano MD Other Provider Active Star t: October 17, 2024 Dr. Corina Rodriguez MD Other Provider Active Sta rt: October 17, 2024 Dr. Serena Varner MD Other Provider Active Sta rt: October 17, 2024 Dr. Cem Maciel MD Other Provider Active Star t: October 17, 2024 Dr. Leonardo Roberts MD Other Provider Active St art: October 17, 2024 Dr. Oli Salinas MD Other Provider Active Star t: October 17, 2024 Dr. Yunior Mane DO Other Provider Active St art: October 17, 2024 Dr. Eugene Ann MD Other Provider Active Start: October 17, 2024 Dr. Olga Diallo MD Other Provider Active St art: October 17, 2024 Dr. Ryan Blount DO Other Provider Active Start: October 17, 2024 Dr. Praneeth Hoyt MD Other Provider Active Star t: October 17, 2024 Dr. Jose David Soliz MD Other Provider Active Sta rt: October 17, 2024 Team Status: Active Member Role/Relationship Status Dates Dr. López Lilly MD Primary Care Provider Acti ve Start: October 18, 2024 Dr. Sukhwinder Sierra DO Emergency Provider Active Start: October 18, 2024 Dr. Lety Augustine MD Admit Provider Active St art: October 18, 2024 Dr. Lety Augustine MD Other Provider Active St art: October 18, 2024 Dr. Rocco Fatima MD Other Provider Active Start: October 18, 2024 Dr. Edmundo Crabtree MD Other Provider Active Start: October 18, 2024 Dr. Daryl Roberts MD Other Provider Active Start: October 18, 2024 Dr. Willem Simeon MD Other Provider Active Star t: October 18, 2024 Dr. Carlos Melvin DO Other Provider Active Start : October 18, 2024 Dr. Tabatha Mo MD Other Provider Active Sta rt: October 18, 2024 Dr. Saud Rodriguez MD Other Provider Active St art: October 18, 2024 Dr. Iker Shi MD Other Provider Active S tart: October 18, 2024 Dr. Angela Bales MD Other Provider Active Start: October 18, 2024 Dr. Jose Boss MD Other Provider Active Start : October 18, 2024 Dr. Charly Brown MD Other Provider Active Start: October 18, 2024 Dr. Sukhwinder Skinner MD Other Provider Active Start : October 18, 2024 Dr. Vita Samano MD Other Provider Active Star t: October 18, 2024 Dr. Corina Rodriguez MD Other Provider Active Sta rt: October 18, 2024 Dr. Serena Varner MD Other Provider Active Sta rt: October 18, 2024 Dr. Cem Maciel MD Other Provider Active Star t: October 18, 2024 Dr. Leonardo Roberts MD Other Provider Active St art: October 18, 2024 Dr. Oli Salinas MD Other Provider Active Star t: October 18, 2024 Dr. Yunior Mane DO Other Provider Active St art: October 18, 2024 Dr. Eugene Ann MD Other Provider Active Start: October 18, 2024 Dr. Olga Diallo MD Other Provider Active St art: October 18, 2024 Dr. Ryan Blount DO Other Provider Active Start: October 18, 2024 Dr. Praneeth Hoyt MD Other Provider Active Star t: October 18, 2024 Dr. Jose David Soliz MD Other Provider Active Sta rt: October 18, 2024 Dr. Tabatha Ashley MD Attending Provider Active Start: October 18, 2024 Dr. Tabatha Ashley MD Other Provider Active Star t: October 18, 2024 Team Status: Active Member Role/Relationship Status Dates Dr. López Lilly MD Primary Care Provider Acti ve Start: October 19, 2024 Dr. Sukhwinder Sierra DO Emergency Provider Active Start: October 19, 2024 Dr. Lety Augustine MD Admit Provider Active St art: October 19, 2024 Dr. Lety Augustine MD Other Provider Active St art: October 19, 2024 Dr. Rocco Fatima MD Other Provider Active Start: October 19, 2024 Dr. Edmundo Crabtree MD Other Provider Active Start: October 19, 2024 Dr. Daryl Roberts MD Other Provider Active Start: October 19, 2024 Dr. Willem Simeon MD Other Provider Active Star t: October 19, 2024 Dr. Carlos Melvin DO Other Provider Active Start : October 19, 2024 Dr. Tabatha Mo MD Other Provider Active Sta rt: October 19, 2024 Dr. Saud Rodriguez MD Other Provider Active St art: October 19, 2024 Dr. Iker Shi MD Other Provider Active S tart: October 19, 2024 Dr. Angela Bales MD Other Provider Active Start: October 19, 2024 Dr. Jose Boss MD Other Provider Active Start : October 19, 2024 Dr. Charly Brown MD Other Provider Active Start: October 19, 2024 Dr. Sukhwinder Skinner MD Other Provider Active Start : October 19, 2024 Dr. Vita Samano MD Other Provider Active Star t: October 19, 2024 Dr. Corina Rodriguez MD Other Provider Active Sta rt: October 19, 2024 Dr. Serena Varner MD Other Provider Active Sta rt: October 19, 2024 Dr. Cem Maciel MD Other Provider Active Star t: October 19, 2024 Dr. Leonardo Roberts MD Other Provider Active St art: October 19, 2024 Dr. Oli Salinas MD Other Provider Active Star t: October 19, 2024 Dr. Yunior Mane DO Other Provider Active St art: October 19, 2024 Dr. Eugene Ann MD Other Provider Active Start: October 19, 2024 Dr. Olga Diallo MD Other Provider Active St art: October 19, 2024 Dr. Ryan Blount DO Other Provider Active Start: October 19, 2024 Dr. Praneeth Hoyt MD Other Provider Active Star t: October 19, 2024 Dr. Jose David Soliz MD Other Provider Active Sta rt: October 19, 2024 Dr. Tabatha Ashley MD Attending Provider Active Start: October 19, 2024 Dr. Tabatha Ashley MD Other Provider Active Star t: October 19, 2024 Team Status: Active Member Role/Relationship Status Dates Dr. López Lilly MD Primary Care Provider Acti ve Start: October 19, 2024 Dr. Pebbles Kowalski MD Attending Provider Active Start: October 19, 2024 Manager Performance Relationship Specialty Start Date End Date Arsalan Lilly MD [address] [place], [place] [id number] PCP - General Family Medicine 12/08/20 Natalya Dorsey, ERIN [address] [place], [place] [id number] Specialty Soil Science Technical Officer Hematology/Oncology 05/03/21 Dereje Villarreal MD [address] [place], [place] [id number] Hematology/Oncology 03/13/23 PodlogarCatherine APRN.REPRINT SORTER [address] [facility] [place] [address] [employer] Family [facility] 03/13/24 Suresh Hodges MD [address] [place] [address] Radiation Oncology 06/18/24 Yasmine Marrero APRN.REPRINT SORTER [address] [facility] [place] [address] [facility] 09/16/24 Manager Performance Relationship Specialty Start Date End Date Arsalan Lilly MD [address] [facility] [place] [address] PCP - General Family Medicine 12/08/20 Natalya Dorsey, ERIN [address] [place] [address] Specialty Soil Science Technical Officer Hematology/Oncology 05/03/21 Dereje Villarreal MD [address] [place] [address] Hematology/Oncology 03/13/23 PodlogarCatherine APRN.REPRINT SORTER [address] [facility] [place] [address] [facility] Family [facility] 03/13/24 Suresh Hodges MD [address] [place] [address] Radiation Oncology 06/18/24 Yasmine Marrero APRN.REPRINT SORTER [address] [facility] [place] [place] [address] [employer] Family Medicine 09/16/24 Manager Performance Relationship Specialty Start Date End Date Arsalan Lilly MD [address] [facility] [place] [address] PCP - General Family Medicine 12/08/20 Natalya Dorsey, ERIN [address] [place] [address] Specialty Soil Science Technical Officer Hematology/Oncology 05/03/21 Dereje Villarreal MD [address] [place] [address] Hematology/Oncology 03/13/23 PodlogCatherine verduzco APRN.REPRINT SORTER [address] [place] [address] [employer] Family Medicine 03/13/24 Suresh Hodges MD [address] [place] [address] Radiation Oncology 06/18/24 Yasmine Marrero APRN.REPRINT SORTER [address] [facility] [place] [address] [employer] Family [facility] 09/16/24 Manager Performance Relationship Specialty Start Date End Date Arsalan Lilly MD [address] [place] [address] PCP - General Family Medicine 12/08/20 Natalya Dorsey, ERIN [address] [place] [address] Specialty Soil Science Technical Officer Hematology/Oncology 05/03/21 Dereje Villarreal MD [address] [place] [address] Hematology/Oncology 03/13/23 PodlogarCatherine APRN.REPRINT SORTER [address] [place] [address] [employer] Family Medicine 03/13/24 Suresh Hodges MD [address] [place] [address] Radiation Oncology 06/18/24 Yasmine Marrero APRN.REPRINT SORTER [address] [facility] [place] [address] [facility] Medicine 09/16/24 Manager Performance Relationship Specialty Start Date End Date Arsalan Lilly MD [address] [place] [address] PCP - General Family Medicine 12/08/20 Natalya Dorsey, RN [address] [place] [address] Specialty Soil Science Technical Officer Hematology/Oncology 05/03/21 Dereje Villarreal MD [address] [place] [address] Hematology/Oncology 03/13/23 PodlogarCatherine APRN.REPRINT SORTER [address] [place] [address] [facility] Family Medicine 03/13/24 Suresh Hodges MD [address] [place] [address] Radiation Oncology 06/18/24 Yasmine Marrero, UI ARCHITECT.REPRINT SORTER [address] [facility] [place] [address] [employer] Family Medicine 09/16/24 Manager Performance Relationship Specialty Start Date End Date Arsalan Lilly MD [address] [facility] [place] [address] PCP - General Family Medicine 12/08/20 Natalya Dorsey, ERIN [address] [place] [address] Specialty Soil Science Technical Officer Hematology/Oncology 05/03/21 Dereje Villarreal MD [address] [place] [address] Hematology/Oncology 03/13/23 PodlogarCatherine UI ARCHITECT.REPRINT SORTER [address] [place] [address] [employer] Family Medicine 03/13/24 Suresh Hodges MD [address] [place] [address] Radiation Oncology 06/18/24 Yasmine Marrero, UI ARCHITECT.REPRINT SORTER [address] [facility] [place] [address] [employer] Family Medicine 09/16/24 Manager Performance Relationship Specialty Start Date End Date Arsalan Lilly MD [address] [facility] [place] [address] PCP - General Family Medicine 12/08/20 Natalya Dorsey RN [address] [place] [address] Specialty Soil Science Technical Officer Hematology/Oncology 05/03/21 Dereje Villarreal MD [address] [place] [address] Hematology/Oncology 03/13/23 PodlogarCatherine APRN.REPRINT SORTER [address] [facility] [place] [address] [employer] Family Medicine 03/13/24 Suresh Hodges MD [address] [place] [address] Radiation Oncology 06/18/24 Yasmine Marrero APRN.REPRINT SORTER [address] [facility] [place] [address] [employer] [facility] 09/16/24 Manager Performance Relationship Specialty Start Date End Date Arsalan Lilly MD [address] [place] [address] PCP - General Family Medicine 12/08/20 Natalya Dorsey RN [address] [place] [address] Specialty Soil Science Technical Officer Hematology/Oncology 05/03/21 Dereje Villarreal MD [address] [place] [address] Hematology/Oncology 03/13/23 Podlogar, Ctaherine, UI ARCHITECT.REPRINT SORTER [address] [facility] [place] [address] [employer] Family Medicine 03/13/24 Suresh Hodges MD [address] [place] [address] Radiation Oncology 06/18/24 Yasmine Marrero APRN.REPRINT SORTER [address] [facility] [place] [address] [facility] 09/16/24 Manager Performance Relationship Specialty Start Date End Date Arsalan Lilly MD [address] [facility] [place] [address] PCP - General Family Medicine 12/08/20 Natalya Dorsey RN [address] [place] [address] Specialty Soil Science Technical Officer Hematology/Oncology 05/03/21 Dereje Villarreal MD [address] [place] [address] Hematology/Oncology 03/13/23 PodlogCatherine verduzco APRN.REPRINT SORTER [address] [facility] [place] [address] [employer] Family Medicine 03/13/24 Suresh Hodges MD [address] [place] [address] Radiation Oncology 06/18/24 Yasmine Marrero APRN.REPRINT SORTER [address] [facility] [place] [address] [facility] 09/16/24 Manager Performance Relationship Specialty Start Date End Date Arsalan Lilly MD [address] [facility] [place] [address] PCP - General Family Medicine 12/08/20 Natalya Dorsey, ERIN [address] [place] [address] Specialty Soil Science Technical Officer Hematology/Oncology 05/03/21 Dereje Villarreal MD [address] [place] [address] Hematology/Oncology 03/13/23 Catherine Peraza APRN.REPRINT SORTER [address] [facility] [place] [address] [employer] Family Medicine 03/13/24 Suresh Hodges MD [address] [place] [address] Radiation Oncology 06/18/24 Yasmine Marrero APRN.REPRINT SORTER [address] [facility] [place] [address] [employer] Family [facility] 09/16/24 Manager Performance Relationship Specialty Start Date End Date Arsalan Lilly MD [address] [facility] [place] [address] PCP - General Family Medicine 12/08/20 Natalya Dorsey, ERIN [address] [place] [address] Specialty Soil Science Technical Officer Hematology/Oncology 05/03/21 Dereje Villarreal MD [address] [place] [address] Hematology/Oncology 03/13/23 PodlogarCatherine APRN.REPRINT SORTER [address] [place] [address] [employer] Family Medicine 03/13/24 Suresh Hodges MD [address] [place] [address] Radiation Oncology 06/18/24 Yasmine Marrero APRN.REPRINT SORTER [address] [facility] [place] [address] [facility] 09/16/24 Manager Performance Relationship Specialty Start Date End Date Arsalan Lilly MD [address] [place] [address] PCP - General Family Medicine 12/08/20 Natalya Dorsey, ERIN [address] [place] [address] Specialty Soil Science Technical Officer Hematology/Oncology 05/03/21 Dereje Villarreal MD [address] [place] [address] Hematology/Oncology 03/13/23 PodlogarCatherine APRN.REPRINT SORTER [address] [place] [address] [facility] 03/13/24 Suresh Hodges MD [address] [place] [address] Radiation Oncology 06/18/24 Yasmine Marrero APRN.REPRINT SORTER [address] [facility] [place] [address] Electric [employer] Family Medicine 09/16/24 Manager Performance Relationship Specialty Start Date End Date Arsalan Lilly MD [address] [place] [address] PCP - General Family Medicine 12/08/20 Natalya Dorsey, ERIN [address] [facility] [place] [address] Specialty Soil Science Technical Officer Hematology/Oncology 05/03/21 Dereje Villarreal MD [address] [place] [address] Hematology/Oncology 03/13/23 PodlogCatherine verduzco APRN.REPRINT SORTER [address] [place] [address] [employer] Family Medicine 03/13/24 Suresh Hodges MD [address] [place] [address] Radiation Oncology 06/18/24 Yasmine Marrero APRN.REPRINT SORTER [address] [place] [address] Electric [employer] Family Medicine 09/16/24 Arsalan Castro MD [address] [place] [address] Physician Urology 11/29/24 Manager Performance Relationship Specialty Start Date End Date Arsalan Lilly MD [address] [place] [address] PCP - General Family Medicine 12/08/20 Natalya Dorsey RN [address] [place] [address] Specialty Soil Science Technical Officer Hematology/Oncology 05/03/21 Dereje Villarreal MD [address] [place] [address] Hematology/Oncology 03/13/23 PodlogCatherine verduzco APRN.REPRINT SORTER [address] [place] [address] Electric [employer] Family Medicine 03/13/24 Suresh Hodges MD [address] [place] [address] Radiation Oncology 06/18/24 Yasmine Marrero APRN.REPRINT SORTER [address] [facility] [place] [place] [address] Electric [employer] Family Medicine 09/16/24 Arsalan Castro MD [address] [place] [address] Physician Urology 11/29/24 Manager Performance Relationship Specialty Start Date End Date Arsalan Lilly MD [address] [place] [address] PCP - General Family Medicine 12/08/20 Natalya Dorsey RN [address] [place] [address] Specialty Soil Science Technical Officer Hematology/Oncology 05/03/21 Dereje Villarreal MD [address] [place] [address] Hematology/Oncology 03/13/23 PodlogarCatherine APRN.REPRINT SORTER [address] [facility] [place] [address] Electric [employer] Family Medicine 03/13/24 Suresh Hodges MD [address] [place] [address] Radiation Oncology 06/18/24 Yasmine Marrero APRN.REPRINT SORTER [address] [facility] [place] [address] [facility] 09/16/24 Arsalan Castro MD [address] [place] [address] Physician Urology 11/29/24 Manager Performance Relationship Specialty Start Date End Date Arsalan Lilly MD [address] [facility] [place] [address] PCP - General Family Medicine 12/08/20 Natalya Dorsey, RN [address] [place] [address] Specialty Soil Science Technical Officer Hematology/Oncology 05/03/21 Dereje Villarreal MD [address] [place] [address] Hematology/Oncology 03/13/23 PodlogCatherine verduzco APRN.REPRINT SORTER [address] [facility] [place] [address] [facility] Family Medicine 03/13/24 Suresh Hodges MD [address] [place] [address] Radiation Oncology 06/18/24 Yasmine Marrero APRN.REPRINT SORTER [address] [place] [address] Electric [employer] Family [facility] 09/16/24 Arsalan Castro MD [facility] [employer] [place] [id number] Physician Urology 11/29/24 Manager Performance Relationship Specialty Start Date End Date Arsalan Lilly MD [address] [place] [address] PCP - General Family Medicine 12/08/20 Natalya Dorsey, ERIN [address] [place] [address] Specialty Soil Science Technical Officer Hematology/Oncology 05/03/21 Dereje Villarreal MD [address] [place] [address] Hematology/Oncology 03/13/23 PodlogCatherine verduzco APRN.REPRINT SORTER [address] [place] [address] [facility] 03/13/24 Suresh Hodges MD [address] [place] [address] Radiation Oncology 06/18/24 Yasmine Marrero APRN.REPRINT SORTER [address] [place] [address] [facility] 09/16/24 Arsalan Castro MD [address] [employer] [place], [place] [address] Physician Urology 11/29/24 Manager Performance Relationship Specialty Start Date End Date Arsalan Lilly MD [address] [facility], [place] [address] [phone] PCP - General Family Medicine 12/08/20 Natalya Dorsey, ERIN [address] [facility] [place] [address] Specialty Soil Science Technical Officer Hematology/Oncology 05/03/21 Dereje Villarreal MD [address] [place] [address] Hematology/Oncology 03/13/23 PodlogarCatherine APRN.REPRINT SORTER [address] [place] [address] [employer] Family Medicine 03/13/24 Suresh Hodges MD [address] [place] [address] Radiation Oncology 06/18/24 Yasmine Marrero APRN.REPRINT SORTER [address] [place], [place] [address] [phone] Electric [employer] Family Medicine 09/16/24 Arsalan Castro MD [address] [employer] [place], [place] [address] Physician Urology 11/29/24 Manager Performance Relationship Specialty Start Date End Date Arsalan Lilly MD [address] [place], [place] 477[address] [phone] PCP - General Family Medicine 12/08/20 Natalya Dorsey, ERIN [address] [place] [address] Specialty Soil Science Technical Officer Hematology/Oncology 05/03/21 Dereje Villarreal MD [address] [place] [address] Hematology/Oncology 03/13/23 Catherine Peraza APRN.REPRINT SORTER [address] [facility] [place] [address] Electric [employer] Family Medicine 03/13/24 Suresh Hodges MD [address] [place] [address] Radiation Oncology 06/18/24 Yasmine Marrero APRN.REPRINT SORTER [address] [facility] [place] [address] [employer] Family Medicine 09/16/24 Arsalan Castro MD [address] [place] [address] Physician Urology 11/29/24 Manager Performance Relationship Specialty Start Date End Date Arsalan Lilly MD [address] [facility] [place] [address] PCP - General Family Medicine 12/08/20 Natalya Dorsey, ERIN [address] [place] [address] Specialty Soil Science Technical Officer Hematology/Oncology 05/03/21 Dereje Villarreal MD [address] [place] [address] Hematology/Oncology 03/13/23 PodlogarCatherine APRN.REPRINT SORTER [address] [facility] [place] [address] [employer] Family [facility] 03/13/24 Suresh Hodges MD [address] [place] [address] Radiation Oncology 06/18/24 Yasmine Marrero APRN.REPRINT SORTER [address] [facility] [place] [address] [facility] 09/16/24 Arsalan Castro MD [facility] [place] [address] Physician Urology 11/29/24 Manager Performance Relationship Specialty Start Date End Date Arsalan Lilly MD [address] [place] [address] PCP - General Family Medicine 12/08/20 Natalya Dorsey, RN [address] [place] [address] Specialty Soil Science Technical Officer Hematology/Oncology 05/03/21 Dereje Villarreal MD [address] [place] [address] Hematology/Oncology 03/13/23 PodlogCatherine verduzco APRN.REPRINT SORTER [address] [facility] [place] [address] [facility] Family Medicine 03/13/24 Suresh Hodges MD [address] [place], [place] [address] Radiation Oncology 06/18/24 Yasmine Marrero APRN.REPRINT SORTER [address] [place] [address] [employer] Family Medicine 09/16/24 Arsalan Castro MD [address] [place] [address] Physician Urology 11/29/24 Inactive Administered Medications - up to 3 [...] be documented in a n alternate section Scheduled Active and Recently Administ ered Medications (unrecognized section and content) Medication Order 11/01/2024 11/02/2024 11/03/2024 acetaminophen 1,000 mg tab(s) (TYLENOL) (COMPLETED) 1,000 mg, ORAL, PRE-OP ONCE, 1 dose, On Fri11/03/24 at 0800, Preprocedure 0811 (Given - Provid er: Catherine Lynn, ERIN) promethazine 12.5 mg tab(s) (PHENERGAN) (COMPLETED) 12.5 mg, ORAL, PRE-OP ONCE, 1 dose, On Fri11/03/24 at 0800, Preprocedure 0811 (Given - Provid er: Catherinemiguelito Lynn RN) Continuous Medication Order 11/01/2024 11/02/2024 11/03/2024 lactated ringers iv infusion 75 mL/hr, INTRAVENOUS, CONTINUOUS, Starting on Fri11/03/24 at 1030, Until Roseann 11/04/24 at 0303 1010 (Rate/Dose Perez ge - Provider: Marlys Donaldson RN) PRN Medication Order 11/01/2024 11/02/2024 11/03/2024 bupivacaine-EPINEPHrine (PF) 20 mL, lidocaine 1%-EPINEPHrine 1:100,000 20 mL (CANCELED) X (OR/PROCEDURE) PRN, Starting on Fri11/03/24 at 0851, Until Fri11/03/24 at 1015, Intraprocedure 0851 (Given - Provid er: Linden Mcguire MD) diphenhydrAMINE 12.5 mg injection (BENADRYL) 12.5 mg, INTRAVENOUS, EVERY 4 HOURS NEEDED, 1 dose, Starting on Fri11/03/24 at 1025, Until Roseann 11/04/24 at 0303, Nausea/Vomiting - Second Line - Parenteral, Recovery or Phase I (only) fentaNYL 50 mcg/mL 50 mcg injection (SUBLIMAZE) 50 mcg, INTRAVENOUS, POST-OP PRN, 1 dose, Starting on Fri11/03/24 at 1025, Until Roseann 11/04/24 at 0303, Moderate Pain (4-6) - Parenteral, FIRST LINE THERAPY Every 10 minutes, To a Maximum Total Dose of 200 mcg Hold for respiratory rate less than 14 USE FOR MODERATE PAIN ONLY IF PATIENT IS UNABLE TO TOLERATE ORAL THERAPY, Recovery or Phase I (only) ondansetron (PF) 4 mg injection (ZOFRAN) 4 mg, INTRAVENOUS, POST-OP PRN, 1 dose, Starting on Fri11/03/24 at 1025, Until Roseann 11/04/24 at 0303, Nausea/Vomiting - First Line - Parenteral, Give IV push over 2 minutes, Recovery or Phase I (only) oxyCODONE IR 5 mg tab(s) (ROXICODONE) (COMPLETED) 5 mg, ORAL, NEEDED, 1 dose, Starting on Fri11/03/24 at 1026, Until Fri11/03/24 at 1040, Moderate Pain (4-6) - Enteral 1040 (Given - Provid er: Marlys Donaldson RN) FOR RECORDS PERTAINING TO PATIENTS WHO ARE [...] BE BASED ON THE PRIMARY CLINICAL RECORDS. [facility]. provides no warranty or guarantee of the accuracy or completeness of information in this document.
[2025-03-05] MEDS: Piperacil/Tazobactam 3.375 GM in 0.9% Normal Saline (50mL MB+) 50 ML IV (20:37)
[2025-03-05 21:01] LABS: AST(SGOT) 30 U/L (<=37); Alanine Aminotransfer ALT/SGPT 24 U/L (<=46); Albumin, Serum 3.9 g/dL (3.4-4.8); Alkaline Phosphatase 152 U/L (40-129); Anion Gap 12 (5-15); BUN 27 mg/dL (4-19); BUN/Creat Ratio 26.3 RATIO (10-20); Calcium,Total 9.5 mg/dL (7.6-11.0); Carbon Dioxide 24.1 mmol/L (21.0-32.0); Chloride 104 mmol/L (98-108); Estimated Creatinine Clearance 59.36 ml/min (50-250); Globulin 3.1 g/dL (2.2-4.2); Glucose 127 mg/dL (70-99); Potassium 4.1 mmol/L (3.3-5.1)
--- NOTE | 2025-03-05 21:16 | ED.VIS.LOWEX ---
HPI History of Present Illness Chief Complaint: Wound Informant: patient and spouse/S.O. Narrative Narrative: Patient is a 69-year-old male with a history of recent foot outpatient surgery presenting with worsening pain, swelling, and erythema of the toe following ingrown toenail removal 8 days ago. - Ingrown toenail removal performed by field services analyst Dr. Oswald Donis 8 days ago. - Immediate post-procedure pain, progressively worsening; describes toe as so sensitive and hurts so much. - Associated with swelling and erythema; initially mild, now significant. - Noticed a small spot at the end of the toe post-procedure, initially described as tiny, like a pencil point, now enlarging and more sensitive. Looked black this AM. - Reports drainage from the site of the surgery that he noticed today. - Denies fever or feeling unwell; overall feeling pretty good. Recent Aranesp injection for low RBC count, causing transient flu-like symptoms, but feels better and back to normal now except for pain in the foot. Undergoing immunotherapy and hormone therapy for prostate cancer. - Pain severe enough to disrupt sleep; sought ER care in [place] a few nights ago due to intensity. ER visit led to suspicion of gout; given Naproxen, no prescriptions written. No prior history of gout. - Denies DM. No current anticoagulant use; denies aspirin use. - Recent outpatient arterial PVR test at [place]; advised to see a vascular surgeon, appointment scheduled for the . - Concerned about rapid changes in the toe's appearance, including discoloration, prompting ED visit. [facility] Medical History Former tobacco use Acalculous cholecystitis Prostate cancer metastatic to bone CKD (chronic kidney disease), stage II Anemia Open wound of scalp with complication Home Medications ?Medication ?Instructions ?Recorded ?Last Taken ?Type abiraterone 250 mg tablet 1,000 mg PO DAILY prostate cancer 12/11/23 09/17/24 History atorvastatin 20 mg tablet 20 mg PO QHS cholesterol 12/11/23 09/17/24 History prednisone 5 mg tablet 5 mg PO BID prostate 12/11/23 09/17/24 History tamsulosin 0.4 mg capsule 0.4 mg PO DAILY prostate 12/11/23 09/17/24 History leuprolide acetate (6 month) 45 mg 45 mg subcut .COMPLEX 02/05/24 09/15/24 History (6 month) subcutaneous syringe (Eligard) calcium 600 mg (as 2 tab PO DAILY calcium 10/15/24 Unknown History carbonate)-vitamin D3 5 mcg (200 unit) tablet (Calcium 600 + D(3)) cimetidine 200 mg tablet 200 mg PO DAILY 10/15/24 Unknown History (Heartburn Relief (cimetidine)) darbepoetin dagmar in polysorbat 25 25 mcg subcut QMONTH 10/15/24 Unknown History mcg/mL in polysorbate injection (Aranesp) naproxen 500 mg tablet 500 mg PO BID 03/05/25 Unknown History Allergy/AdvReac Type Severity Reaction Status Date / Time No Known Allergies Allergy Verified 03/05/25 19:31 Family History (Updated 10/15/24 @ 11:[address] Lety Augustine MD) Father Prostate cancer Hypertension Mother No problems noted. 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 alcohol intake: current alcohol intake frequency: holidays/special occasions only ROS ROS ED Constitutional Constitutional ED: Denies chills or fever(s) Eyes Eyes: Denies change in vision or diplopia ENT ENT ED: Denies rhinorrhea or sore throat Cardiovascular Cardiovascular: Denies chest pain or palpitations Respiratory/Chest Respiratory/Chest: Denies cough or dyspnea Gastrointestinal Gastrointestinal: Denies abdominal pain, diarrhea, nausea or vomiting Genitourinary Genitourinary ED: Denies dysuria or hematuria Musculoskeletal Musculoskeletal: Reports extremity pain; Denies neck pain Integumentary Reports rash and wounds; Denies Abrasions Neurologic Neurologic: Denies paresthesias or weakness Psychiatric Psychiatric: Denies anxiety or suicidal thoughts EXAM Physical Exam Const Vital Signs: 03/05/25 19:30 03/05/25 20:16 03/05/25 21:00 Temperature 98.2 F 98.2 F 97.7 F L Temperature Source Oral Oral Oral Pulse Rate 106 H 85 83 Respiratory Rate 18 16 16 Blood Pressure 122/72 H 135/64 H 128/70 H Blood Pressure Mean 88 87 89 Pulse Ox 97 98 92 Oxygen Delivery Method Room Air Room Air Room Air 03/05/25 21:30 03/05/25 22:00 03/05/25 22:52 Temperature 98.2 F 97.8 F 97.8 F Temperature Source Oral Oral Oral Pulse Rate 93 86 87 Respiratory Rate 16 16 16 Blood Pressure 138/75 H 137/76 H 135/99 H Blood Pressure Mean 96 96 111 Pulse Ox 95 100 94 Oxygen Delivery Method Room Air Room Air Room Air 03/05/25 22:55 03/05/25 23:57 Temperature 98.1 F 97.9 F Temperature Source Oral Oral Pulse Rate 70 81 Respiratory Rate 16 16 Blood Pressure 122/57 H 129/66 H Blood Pressure Mean 78 87 Pulse Ox 94 95 Oxygen Delivery Method Room Air Room Air Positive well nourished and well developed General Appearance ED: well developed and NAD HEENT Reports moist mucous membranes normocephalic and atraumatic Eyes PERRL and EOMs intact bilaterally Neck full ROM and supple Resp normal respiratory effort and clear to auscultation bilaterally Cardio regular rate, regular rhythm and no murmurs GI non-tender and non-distended Auscultation: normoactive bowel sounds Palpation: soft Back/Spine normal ROM and normal to inspection General Back: other FROM Extremity full ROM Extremity Narrative: The right foot has significant erythema throughout the great toe and into the forefoot along all of the dorsal MTPJ's, all of which is tender. The first MTPJ is erythematous and swollen but the entire toe is as well. There is some ecchymotic dusky tissue at the tip of the toe beyond the nail but it is very limited to this area only, the cap refill throughout the tip of the great toe is about 4 seconds. There is nothing that appears to be gangrenous. At the tibial aspect of the toenail where the procedure was done, there is a drop of pus at the base near the cuticle. There is no abscess or focal swelling requiring drainage. There is no lymphangitis or pain/erythema beyond the forefoot, which progresses to about the mid to-metatarsal area. The dorsalis pedis pulse cannot be felt nor easily dopplered. General Extremety ED: Yes pulses abnormal and tenderness; Negative for edema General Extremity: pulses abnormal; Negative for edema Neuro oriented x3, no focal motor deficits and no sensory deficits noted Sensorium / Orientation: alert Motor Exam: strength 5/5 throughout Psych mental status grossly normal and thought process normal Skin no wounds Rashes: no rashes MDM MDM MDM Narrative Medical decision making narrative: Given the patient?s history and the clinical appearance of his right foot and great toe, my suspicion is that his arterial disease has led to a postoperative infection that otherwise likely would not have occurred. He does not appear to have acute limb ischemia in the toe or foot. He does have a dusky area at the tip of the toe, but it does not appear to be necrotic or gangrenous at this time. I swabbed the small area of purulent discharge from the surgical site and attempted to express more drainage, but there was none. I obtained a culture of the minimal secretion, which is pending. The rest of his labs are notable for chronic anemia that appears stable, with a current hemoglobin of 8.6 (previously below 8). He does not have significant leukocytosis or a left shift. His chemistries are unremarkable, and his renal function is good. I obtained a three-view X-ray series of the right foot, which, in my interpretation, does not show subcutaneous emphysema or osteomyelitis radiographically. I reviewed outside testing from the [facility] performed four days ago, demonstrating a right lower extremity RODRIGO of 0.59, indicating moderate arterial insufficiency, and a right toe-brachial index of 0 with no PPG segment recordings. The left toe-brachial index is 0.34. Given these findings, he clearly has arterial disease in the affected toe. He is on no antiplatelet or anticoagulant medication, so I administered 324 mg of oral aspirin, in addition to a dose of Zosyn 3.375 g to treat possible infection empirically. There is no lymphangitis or significant spread of erythema or cellulitis on reevaluation, making necrotizing fasciitis less likely. However, given his vascular disease, I believe he should be admitted for further evaluation and treatment. I do not think he has critical toe or limb ischemia. I discussed the plan with the hospitalist, and they are comfortable with this approach. The vascular service does not have weekend coverage, but they are expected to be available the next day. The patient understands this and is amenable to staying two nights if necessary. Hospitalist evaluated the patient, however he is concerned about the dusky, discolored area at the tip of the toe and the fact that the rest of the foot is tender but this part is insensate and may represent distal toe ischemia. Therefore he is uncomfortable admitting and recommends transfer to a place that has a vascular consultation available this weekend, in addition to podiatry. Patient prefers to stay in the [facility] hospital system. In the meantime we started him on heparin. They requested Read however they have no podiatry at this time so we discussed with Dr. Morel at [facility], who accepts the patient. History & Record Review Additional record(s) reviewed:: Prior outpatient record (lower ext [facility] lab study, fernando morton 03/01/25) Lab Data Attestation: I reviewed the patient's lab results. Labs: Laboratory Results - last 24 hr 03/05/25 20:00 WBC 7.2 RBC 3.64 L Hgb 8.6 L Hct 29.1 L MCV 79.9 L MCH 23.6 L MCHC 29.6 L RDW Std Deviation 59.5 H RDW Coeff of Lydia 20.3 H Plt Count 296 MPV 8.6 Immature Gran % (Auto) 0.300 Neut % (Auto) 66.0 Lymph % (Auto) 26.8 [place] % (Auto) 3.3 Eos % (Auto) 3.5 Baso % (Auto) 0.1 Absolute Neuts (auto) 4.8 Absolute Lymphs (auto) 1.93 Nucleated RBC % 0 ESR 6 PT 13.8 INR 1.0 APTT 26.6 Sodium 140 Potassium 4.1 Chloride 104 Carbon Dioxide 24.1 Anion Gap 12 BUN 27 H Creatinine 1.03 Estim Creat Clear Calc 59.36 Est GFR (MDRD) Non-Af 78 BUN/Creatinine Ratio 26.3 H Glucose 127 H Lactic Acid 1.5 Calcium 9.5 Total Bilirubin 0.46 AST 30 ALT 24 Alkaline Phosphatase 152 H C-React Prot Ext Range 13.50 H Total Protein 7.0 Albumin 3.9 Globulin 3.1 Albumin/Globulin Ratio 1.2 Radiography Diagnostic Testing: Clinical Impression(s) from Imaging Studies Foot X-Ray 03/05/25 21:20 IMPRESSION: No bony abnormalities. Reading Location: [facility] Management Discussion w/another healthcare provider: Hospitalist ([facility]) and [employer] St[facility] (Dr. Morel, [facility]) Discharge Plan Triage Chief Complaint: Wound ED Provider: Vicente Fernandez Dx/Rx/DC Orders Clinical Impression: Cellulitis of foot, right, Postoperative wound infection, Peripheral artery insufficiency, Chronic anemia, Ischemic ulcer of toe of right foot Prescriptions: No Action Eligard (6 month) 45 mg syringe 45 mg subcut .COMPLEX Rx Instructions: 45 mg subcutaneously EVERY 6 MONTHS; cimetidine [Heartburn Relief (cimetidine)] 200 mg tablet 200 mg PO DAILY Rx Instructions: administer with meals Aranesp (in polysorbate) 25 mcg/mL solution 25 mcg subcut QMONTH calcium carbonate-vitamin D3 [Calcium 600 + D(3)] 600 mg-5 mcg (200 unit) tablet 2 tab PO DAILY atorvastatin 20 mg tablet 20 mg PO QHS prednisone 5 mg tablet 5 mg PO BID tamsulosin 0.4 mg capsule 0.4 mg PO DAILY abiraterone 250 mg tablet 1,000 mg PO DAILY naproxen 500 mg tablet 500 mg PO BID Primary Care Provider: López Ocampo Referrals: López Ocampo MD [Primary Care Provider, Family Practice] Print Language: Tajik Disposition Disposition: Acute Care Hospital Discharge Location: [facility]
--- NOTE | 2025-03-05 21:20 | RAD_ITS ---
PROCEDURE: FOOT MIN 3 VIEWS 03/05/2025 REASON FOR EXAM: PAIN/INFECTION TECHNIQUE: Procedure Code: RADFO Modality: DX Procedure: FOOT MIN 3 VIEWS Laterality: Right. COMPARISON: None. FINDINGS: Bones: No acute bony abnormalities. Joints: Hallux valgus. Soft tissues: No soft tissue abnormalities. Vascular atherosclerotic calcifications. RAD/Foot min 3 Views IMPRESSION: No bony abnormalities. Reading Location: [id number]
[2025-03-05 22:04] LABS: CRP 13.50 mg/L (0.0-3.0)
[2025-03-05] MEDS: HEPARIN/D5w 25,000 UNITS 25,000 UNITS/250 ML IV.SOLN. 8.5 UNITS CONT INF (22:47)
[2025-03-05] MEDS: Heparin Injection (Vial) 5,000 UNIT/ML VIAL 4000 UNIT IV (22:49)
[2025-03-06] VITALS (8 sets, daily range): BP systolic 120–148; BP diastolic 59–84; PULSE 60–81; RESP 13–19; TEMP 36.7–36.8; O2SAT 94–100
--- NOTE | 2025-03-06 01:55 | PCA ---
PT ACCEPTED [facility] 4M RM 477 BED 1 [id number] [phone] LOCAL [facility] ARRANGED
[2025-03-06 05:15] LABS: Partial Thromboplast Time 77.5 Seconds (24.1-36.2)
== END 2025-03-06 08:02 | disposition short-term general hospital (02) ==
PROVIDERS: Emergency Provider Emergency Medicine; PCP Family Medicine; Visit Provider Emergency Medicine
DX: L03.115 Cellulitis of right lower limb (principal); C79.51 Secondary malignant neoplasm of bone; L97.519 Non-pressure chronic ulcer of other part of right foot with unspecified severity; C61 Malignant neoplasm of prostate; T81.41XA Infection following a procedure, superficial incisional surgical site, initial encounter; Y83.8 Other surgical procedures as the cause of abnormal reaction of the patient, or of later complication, without mention of misadventure at the time of the procedure; I73.9 Peripheral vascular disease, unspecified; Z79.899 Other long term (current) drug therapy; Z87.891 Personal history of nicotine dependence
CPT/HCPCS: 73630; 80053; 83605; 85025; 85610; 85652; 85730; 86140; 87070; 87205; 96365; 96366; 96367; 96375; 99285; A4216; J2405